=== PATIENT | male | born 1970 | race Caucasian/White ===

== ENCOUNTER 2018-02-09 23:09 | Emergency (ER) | payer OTHER ==
[2018-02-09] MEDS ORDERED: IPRATROPIUM BROM 0.5MG/2.5ML ONE (23:43)
[2018-02-09] MEDS ORDERED: METHYLPREDNISOLONE 125 MG INJ ONE (23:43)
[2018-02-09] MEDS ORDERED: LEVALBUTEROL 1.25 MG/3 ML NEB ONE (23:43)
[2018-02-09 23:56] LABS: Protime INR 0.92
[2018-02-10 00:03] LABS: Absolute Lymphocytes (CBC) 3.3 K/uL (0.7-4.9); Absolute Monocytes 0.7 K/uL (0.1-1.3); Absolute Neutrophil 4.1 K/uL (1.8-8.0); Hematocrit 43.2 % (39.6-49.0); Lymphocytes % 39.6 % (15.3-44.8); MCH 34.5 pg (27.0-35.0); MCV 96.7 fL (80-100); MPV 6.7 fL (7.6-11.3); Monocytes % 9.1 % (3.3-12.3); RBC Red Blood Cell Count 4.47 M/uL (4.33-5.43)
[2018-02-10 00:05] LABS: Bicarbonate 25 mEq/L (21-31); Glucose Level 113 mg/dL (65-120); Lipase 134 U/L (22-51); Potassium 3.3 mEq/L (3.6-5.0); Sodium Level 132 mEq/L (135-145)
[2018-02-10 00:12] LABS: ALT/SGPT 37 IU/L (10-60); AST/SGOT 43 IU/L (10-42); Albumin 5.1 g/dL (3.2-5.5); Alkaline Phosphatase 105 IU/L (42-121); BUN Blood Urea Nitrogen 5 mg/dL (6-20); Bilirubin Direct 0.1 mg/dL (0-0.2); Bilirubin Total 0.9 mg/dL (0.3-1.2); Protein, Total 8.6 g/dL (6.0-8.3)
[2018-02-10 01:11] LABS: Urine Blood TRACE (NEG); Urine Glucose NEGATIVE (NEG); Urine Protein TRACE (NEG); Urine Specific Gravity <1.005 (1.005-1.030); Urine pH 6.5 (5.0-7.0)
--- NOTE | 2018-02-10 01:34 | EDPHYS ---
Physician Documentation [facility] Name: Randy Briones Age: 47 yrs Sex: Male : 1970 Arrival Date: 02/09/2018 Time: 23:11 Bed 4 Private MD: ED Physician Dheeraj Thibodeaux HPI: 02/09 23:26 This 47 yrs old Male presents to ER via EMS with complaints of Respiratory rn Distress. 23:26 The patient has shortness of breath at rest. Onset: The symptoms/episode began/occurred rn today. Duration: The symptoms are intermittent. Associated signs and symptoms: Pertinent positives: non-productive cough, Pertinent negatives: fever, hemoptysis, loss of consciousness. Severity of symptoms: At their worst the symptoms were moderate in the emergency department the symptoms have improved. The patient has experienced similar episodes in the past. Reports intermittent episodes of sob, began today, has happened multiple times in past, no fever, no hemoptysis, reports is HIV + and has been having unprotected sex, has not been tested in 6 years, has not told us this in past. . Historical: - Allergies: 23:29 Lisinopril; fc - Home Meds: 23:29 Triamterene-Hydrochlorothiazid Oral once daily [Active]; albuterol sulfate 2.5 mg /3 mL fc (0.083 %) Inhl nebu 3 mL 3 times per day [Active]; Spiriva with HandiHaler inhalation [Active]; Advair Diskus 250-50 mcg/dose Inhl dsdv 1 puff 2 times per day [Active]; gabapentin 100 mg Oral cap 3 caps 3 times per day [Active]; montelukast 10 mg Oral tab 1 tab once daily [Active]; Nexium 40 mg Oral cpDR 1 cap 2 times per day [Active]; Norvasc 10 mg Oral tab once daily [Active]; - PMHx: 23:29 COPD; Hypertension; fc - PSHx: 23:29 finger surg; fc - Immunization history:: Last tetanus immunization: unknown. - Social history:: Smoking status: Patient uses tobacco products, smokes two packs cigarettes per day. Patient uses alcohol, 1 case a day. - Family history:: not pertinent. - Hospitalizations: : No recent hospitalization is reported. ROS: 23:26 Constitutional: Negative for fever, chills, and weight loss, Eyes: Negative for injury, rn pain, redness, and discharge, Neck: Negative for injury, pain, and swelling, Cardiovascular: Negative for chest pain, palpitations, and edema, Respiratory: + sob and cough, no hemoptysis Abdomen/GI: Negative for abdominal pain, nausea, vomiting, diarrhea, and constipation, MS/Extremity: Negative for injury and deformity, Skin: Negative for injury, rash, and discoloration, Neuro: Negative for headache, weakness, numbness, tingling, and seizure. Exam: 23:26 Constitutional: This is a well developed, well nourished patient who is awake, alert, rn and in no acute distress. Head/Face: Normocephalic, atraumatic. Eyes: Pupils equal round and reactive to light, extra-ocular motions intact. Lids and lashes normal. Conjunctiva and sclera are non-icteric and not injected. Cornea within normal limits. Periorbital areas with no swelling, redness, or edema. Neck: Trachea midline, no thyromegaly or masses palpated, and no cervical lymphadenopathy. Supple, full range of motion without nuchal rigidity, or vertebral point tenderness. No Meningismus. Cardiovascular: Regular rate and rhythm with a normal S1 and S2. No gallops, murmurs, or rubs. Normal PMI, no JVD. No pulse deficits. Respiratory: Mild tachypnea, decreased bilateral breath sounds, no wheezing, no retractions Abdomen/GI: Soft, non-tender, with normal bowel sounds. No distension or tympany. No guarding or rebound. No evidence of tenderness throughout. MS/ Extremity: Pulses equal, no cyanosis. Neurovascular intact. Full, normal range of motion. Equal circumference. Neuro: Awake and alert, GCS 15, oriented to person, place, time, and situation. Cranial nerves II-XII grossly intact. Motor strength 5/5 in all extremities. Sensory grossly intact. Cerebellar exam normal. Vital Signs: 23:10 BP 151 / 100; Pulse 109; Resp 24; Temp 97.7(O); Pulse Ox 99% on R/A; Weight 79.38 kg fc (R); Height 5 ft. 4 in. (162.56 cm) (R); Pain 0/10; 04/04 00:18 BP 107 / 90; Pulse 98; Resp 18; Pulse Ox 98% on R/A; aa1 01:23 BP 117 / 71; Pulse 93; Resp 20; Pulse Ox 98% on R/A; Pain 0/10; aa1 01:46 BP 132 / 97; Pulse 64; Resp 18 S; Temp 98(O); Pulse Ox 95% on R/A; bb 02/09 23:10 Body Mass Index 30.04 (79.38 kg, 162.56 cm) fc MDM: 02/09 23:14 Patient medically screened. pm1 02/10 01:31 Differential diagnosis: pneumonia, Pneumothorax pulmonary edema, pancreatitis. Data rn reviewed: vital signs, nurses notes, lab test result(s), EKG, radiologic studies, plain films, and as a result, I will discharge patient. Counseling: I had a detailed discussion with the patient and/or guardian regarding: the historical points, exam findings, and any diagnostic results supporting the discharge/admit diagnosis, lab results, radiology results, the need for outpatient follow up, to return to the emergency department if symptoms worsen or persist or if there are any questions or concerns that arise at home. Response to treatment: the patient's symptoms have resolved after treatment, the patient's condition has returned to base line, the patient is now symptom free, patient is well hydrated. and as a result, I will discharge patient. Special discussion: I discussed with the patient/guardian in detail that at this point there is no indication for admission to the hospital. It is understood, however, that if the symptoms persist or worsen the patient needs to return immediately for re-evaluation. Based on the history and exam findings, there is no indication for further emergent testing or inpatient evaluation. I discussed with the patient/guardian the need to see the supervisor paint roller covers for further evaluation of the symptoms. ED course: Pt sleeping, no further breathing episodes, mild pancreatitis on labs, patient has not had abd or chest pain entire time, offered observation, patient states feels fine, wants to go home, strongly urged to wean off ETOH as likely root of most of his problems, return precautions given and understood. . 01:34 ED course: no change in LFTs compared to previous. . rn 02/09 23:16 Order name: BMP rn 02/09 23:16 Order name: BNP; Complete Time: rn 02/09 23:16 Order name: CBC with Diff; Complete Time: rn 02/09 23:16 Order name: Hepatic Function; Complete Time: 01:08 rn 02/09 23:16 Order name: Lipase; Complete Time: 01:08 rn 02/09 23:16 Order name: XRAY CXR (1 view) rn 02/09 23:16 Order name: PT-INR; Complete Time: 00:06 rn 02/09 23:16 Order name: Ptt, Activated; Complete Time: 00:06 rn 02/09 23:16 Order name: Troponin (emerg Dept Use Only); Complete Time: 01:08 rn 02/09 23:16 Order name: Basic Metabolic Panel; Complete Time: 01:08 EDMS 02/10 00:13 Order name: HIV AG/AB SCREEN EDMS 02/10 00:58 Order name: Urine Dipstick--Ancillary (enter results); Complete Time: 01:18 em1 02/09 23:16 Order name: EKG; Complete Time: 23:16 rn 02/09 23:16 Order name: Cardiac monitoring; Complete Time: 23:21 rn 02/09 23:16 Order name: EKG - Nurse/Tech; Complete Time: 23:44 rn 02/09 23:16 Order name: IV Saline Lock; Complete Time: 23:20 rn 02/09 23:16 Order name: Labs collected and sent; Complete Time: 23:45 rn 02/09 23:16 Order name: O2 Per Protocol; Complete Time: 23:20 rn 02/09 23:16 Order name: O2 Sat Monitoring; Complete Time: 23:20 rn Administered Medications: 02/09 23:30 Drug: Xopenex (3) 1.25 mg Route: Inhalation; aa1 23:30 Drug: AtroVENT Aerosol 0.5 mg Route: Inhalation; aa1 23:32 Drug: SOLU-Medrol 125 mg Route: IVP; Site: left antecubital; aa1 02/10 01:47 Follow up: Response: No adverse reaction bb Disposition: 02/10/18 01:33 Discharged to Home. Impression: Acute pancreatitis. - Condition is Stable. - Discharge Instructions: Acute Pancreatitis. - Medication Reconciliation Form, Thank You Letter, Antibiotic Education, Prescription Opioid Use form. - Follow up: Private Physician; When: As needed; Reason: Recheck today's complaints, Re-evaluation by your physician. - Problem is new. - Symptoms have improved. Signatures: Dispatcher [employer] EDShu Yusuf RN RN aa1 Thu Geiger RN RN Seda Cook RN RN Dheeraj Bland MD MD rn Marinas, Patrick, MARITZA CALL OR CONTACT CENTRE OPERATOR pm1 Corrections: (The following items were deleted from the chart) 00:13 02/09 23:53 HIV (1 ordered. EDMS EDMS
--- NOTE | 2018-02-10 01:34 | ER ---
Nurse's Notes [facility] Name: Randy Briones Age: 47 yrs Sex: Male : 1970 Arrival Date: 02/09/2018 Time: 23:11 Bed 4 Private MD: Diagnosis: Acute pancreatitis Presentation: 02/09 23:10 Presenting complaint: EMS states: that they were toned for anxiety attack. Upon their fc arrival pt was short of breath. Has been having "breathing attacks" x 3 months. When he has the attacks he also has right upper abd pain. bp 160/109, sats 97% on 3L. Had Atrovent and Albuterol neb just prior to their arrival. Pt also wants HIV test due to his having HIV and them not finding anything wrong with him even though he has been sick for some time. Transition of care: patient was not received from another setting of care. Onset of symptoms was February 09, 2018. Care prior to arrival: IV initiated. 18 GA, in the left antecubital area. 23:20 Method Of Arrival: EMS: [facility] 23:20 Acuity: CANDACE 2 Historical: - Allergies: 23:29 Lisinopril; fc - Home Meds: 23:29 Triamterene-Hydrochlorothiazid Oral once daily [Active]; albuterol sulfate 2.5 mg /3 mL fc (0.083 %) Inhl nebu 3 mL 3 times per day [Active]; Spiriva with HandiHaler inhalation [Active]; Advair Diskus 250-50 mcg/dose Inhl dsdv 1 puff 2 times per day [Active]; gabapentin 100 mg Oral cap 3 caps 3 times per day [Active]; montelukast 10 mg Oral tab 1 tab once daily [Active]; Nexium 40 mg Oral cpDR 1 cap 2 times per day [Active]; Norvasc 10 mg Oral tab once daily [Active]; - PMHx: 23:29 COPD; Hypertension; fc - PSHx: 23:29 finger surg; fc - Immunization history:: Last tetanus immunization: unknown. - Social history:: Smoking status: Patient uses tobacco products, smokes two packs cigarettes per day. Patient uses alcohol, 1 case a day. - Family history:: not pertinent. - Hospitalizations: : No recent hospitalization is reported. Screenin:10 Abuse screen: Denies threats or abuse. Nutritional screening: No deficits noted. fc Tuberculosis screening: No symptoms or risk factors identified. Fall Risk None identified. Assessment: 23:20 General: Appears in no apparent distress. comfortable, Behavior is calm, cooperative, aa1 appropriate for age, Smells of alcohol. Pain: Denies pain. Neuro: Level of Consciousness is awake, alert, obeys commands, Oriented to person, place, time, situation, Moves all extremities. Full function Speech is normal. Cardiovascular: Denies chest pain, diaphoresis, palpitations, Heart tones S1 S2 present Capillary refill < 3 seconds Clubbing of nail beds is absent Patient's skin is warm and dry. Rhythm is regular. Respiratory: Reports shortness of breath at rest Airway is patent Respiratory effort is even, unlabored, Respiratory pattern is regular, symmetrical, Breath sounds with wheezes bilaterally. GI: No signs and/or symptoms were reported involving the gastrointestinal system. Abdomen is round. : No signs and/or symptoms were reported regarding the genitourinary system. EENT: No signs and/or symptoms were reported regarding the EENT system. Derm: Skin is intact, is healthy with good turgor, Skin is pink, warm \\T\\ dry. Musculoskeletal: Circulation, motion, and sensation intact. Capillary refill < 3 seconds. 02/10 00:18 Reassessment: Patient appears in no apparent distress at this time. Patient and/or aa1 family updated on plan of care and expected duration. Pain level reassessed. Patient is alert, oriented x 3, equal unlabored respirations, skin warm/dry/pink. Awaiting lab results Patient states feeling better. 01:23 Reassessment: Patient appears in no apparent distress at this time. Patient and/or aa1 family updated on plan of care and expected duration. Pain level reassessed. Patient is alert, oriented x 3, equal unlabored respirations, skin warm/dry/pink. MD at bedside discussing results with pt \\T\\ spouse. 01:45 Reassessment: Patient is alert, oriented x 3, equal unlabored respirations, skin bb warm/dry/pink. pt verbalized understanding of and agrees to plan of care discharge instructions given pt ambulated with steady gait to exit. Vital Signs: 02/09 23:10 BP 151 / 100; Pulse 109; Resp 24; Temp 97.7(O); Pulse Ox 99% on R/A; Weight 79.38 kg fc (R); Height 5 ft. 4 in. (162.56 cm) (R); Pain 0/10; 02/10 00:18 BP 107 / 90; Pulse 98; Resp 18; Pulse Ox 98% on R/A; aa1 01:23 BP 117 / 71; Pulse 93; Resp 20; Pulse Ox 98% on R/A; Pain 0/10; aa1 01:46 BP 132 / 97; Pulse 64; Resp 18 S; Temp 98(O); Pulse Ox 95% on R/A; bb 02/09 23:10 Body Mass Index 30.04 (79.38 kg, 162.56 cm) ED Course: 02/09 23:10 Arm band placed on Patient placed in an exam room, on a stretcher. fc 23:10 Patient has correct armband on for positive identification. Bed in low position. Call fc light in reach. Side rails up X2. site monitor on. Pulse ox on. NIBP on. 23:10 No provider procedures requiring assistance completed. Maintain EMS IV. Dressing fc intact. Good blood return noted. Site clean \\T\\ dry. Gauge \\T\\ site: 18 gauge to left a/c. 23:10 Oxygen administration via nasal cannula \\T\\ 2L/min. aa1 23:11 Patient arrived in ED. em1 23:14 Issa Mayberry, CLEARING DISTRIBUTION CLERK is PHCP. pm1 23:14 Dheeraj Thibodeaux MD is Attending Physician. pm1 23:20 Shu Mendoza, BRIGETTE is Primary Nurse. aa1 23:24 Triage completed. 23:30 Initial lab(s) drawn, by ct, sent to lab. EKG done, by ED staff, reviewed by Dheeraj Thibodeaux MD. 23:46 X-ray completed. Portable x-ray completed in exam room. Patient tolerated procedure kw well. 23:47 XRAY CXR (1 view) In Process Unspecified. EDMS 02/10 01:47 IV discontinued, intact, bleeding controlled, No redness/swelling at site. Pressure bb dressing applied. Administered Medications: 02/09 23:30 Drug: Xopenex (3) 1.25 mg Route: Inhalation; aa1 23:30 Drug: AtroVENT Aerosol 0.5 mg Route: Inhalation; aa1 23:32 Drug: SOLU-Medrol 125 mg Route: IVP; Site: left antecubital; aa1 02/10 01:47 Follow up: Response: No adverse reaction bb Outcome: 01:33 Discharge ordered by . rn 01:46 Discharged to home ambulatory. bb 01:46 Condition: stable 01:46 Discharge instructions given to patient, Instructed on discharge instructions, follow up and referral plans. Demonstrated understanding of instructions, follow-up care. 01:47 Patient left the ED. bb Signatures: Dispatcher [employer] EDMS Shu Mendoza RN RN aa1 Thu Geiger RN RN fc Seda Street RN RN bb Dheeraj Thibodeaux MD MD rn Martinez, Eric em1 Whitley, Kimberlee kw Marinas, Patrick, MARITZA CLEARING DISTRIBUTION CLERK pm1
[2018-02-10 01:56] VITALS: BP 132/97; TEMP 98; O2SAT 95
--- NOTE | 2018-02-10 07:35 | EKG ---
Test Date: 2018-02-09 Test Time: 23:31:14 Hole Digger Operator: FABIANO MEASUREMENT RESULTS: Intervals: Rate: 96 UT: 134 QRSD: 102 QT: 376 QTc: 475 Rives: P: 73 UT: 134 QRS: 86 T: 71 INTERPRETIVE STATEMENTS: Normal sinus rhythm Normal ECG Compared to ECG 01/07/2018 13:06:49 No significant changes Electronically Signed On 02-10-18 07:34:46 CDT by Clovis Barrios
--- NOTE | 2018-02-10 08:20 | RAD REPORT ---
EXAM DESCRIPTION: RAD - Chest Single View - 02/09/2018 11:47 pm CLINICAL HISTORY: Shortness of breath, dyspnea. COMPARISON: 01/07/2018 FINDINGS: Portable technique limits examination quality. The lungs are grossly clear. The heart is normal in size. No displaced fractures. IMPRESSION: No acute intrathoracic process suspected.
[2018-02-11 21:31] LABS: HIV 1/2 Antibody Diff Not indicated.; HIV AG/AB 4TH GEN Non-reactive (Non-reactive)
== END 2018-02-10 01:47 | disposition home or self-care (01) ==
LOC: ER 23:09
DX: K85.90 Acute pancreatitis without necrosis or infection, unspecified (principal); I10 Essential (primary) hypertension; J44.9 Chronic obstructive pulmonary disease, unspecified; F17.210 Nicotine dependence, cigarettes, uncomplicated; Z88.8 Allergy status to other drugs, medicaments and biological substances
CPT/HCPCS: 36415; 71045; 80048; 80076; 81003; 83690; 83880; 84484; 85025; 85610; 85730; 87389; 93005; 96374; 99285; J2930

== ENCOUNTER 2018-02-10 15:01 | Inpatient (IN) | payer OTHER ==
[2018-02-10] MEDS ORDERED: METHYLPREDNISOLONE 125 MG INJ ONE (15:40)
[2018-02-10] MEDS ORDERED: MAGNESIUM SULFATE 1 gm IVPB 1 GM/100 ML BAG IV ONE ×2 (15:41→15:56)
[2018-02-10] MEDS ORDERED: LEVALBUTEROL 1.25 MG/3 ML NEB ONE (15:41)
--- NOTE | 2018-02-10 15:48 | EKG ---
Test Date: 2018-02-10 Test Time: 15:43:47 Features Reporter: CLEMENTINE MEASUREMENT RESULTS: Intervals: Rate: 137 CO: 126 QRSD: 86 QT: 296 QTc: 446 [place]: P: 70 CO: 126 QRS: 81 T: 71 INTERPRETIVE STATEMENTS: Sinus tachycardia Nonspecific ST abnormality Abnormal ECG Compared to ECG 02/09/2018 23:31:14 ST (T wave) deviation now present Sinus rhythm no longer present Electronically Signed On 02-10-18 15:48:35 CDT by Wilber Ray
[2018-02-10 15:51] LABS: Absolute Monocytes 0.4 K/uL (0.1-1.3); Absolute Neutrophil 6.1 K/uL (1.8-8.0); Basophils % 0.7 % (0-1.3); Lymphocytes % 13.3 % (15.3-44.8); MCH 33.7 pg (27.0-35.0); MCV 97.5 fL (80-100); MPV 7.3 fL (7.6-11.3); Monocytes % 5.1 % (3.3-12.3); RBC Red Blood Cell Count 4.52 M/uL (4.33-5.43)
[2018-02-10 15:55] LABS: Bicarbonate 23 mEq/L (21-31); Glucose Level 138 mg/dL (65-120); Sodium Level 132 mEq/L (135-145)
[2018-02-10] MEDS ORDERED: NA CHLORIDE 0.9% 1,000 ML ONE ×2 (15:55→17:47)
[2018-02-10 15:56] LABS: Protime INR 0.95
[2018-02-10 16:01] LABS: ALT/SGPT 40 IU/L (10-60); AST/SGOT 43 IU/L (10-42); Albumin 5.3 g/dL (3.2-5.5); Alkaline Phosphatase 99 IU/L (42-121); BUN Blood Urea Nitrogen 11 mg/dL (6-20); Bilirubin Direct 0.2 mg/dL (0-0.2); Creatine Phosphokinase 87 IU/L (22-269); Glomerular Filtration Rate > 90 mL/min (=/>90); Magnesium 1.8 mg/dL (1.8-2.5); Protein, Total 8.9 g/dL (6.0-8.3)
[2018-02-10 16:04] LABS: CKMB Creatine Kinase MB 2.7 ng/ml (0.3-4.0)
[2018-02-10] MEDS ORDERED: IPRATROPIUM BROM 0.5MG/2.5ML ONE (16:27)
[2018-02-10 17:18] LABS: Arterial Blood Carboxyhemoglob 3.3 % (0-1.5); Blood Gas Oxyhemoglobin 94.9 % (94-97)
[2018-02-10] MEDS ORDERED: LORazepam 2 MG/ML VIAL ONE ×2 (17:28→19:14)
--- NOTE | 2018-02-10 17:29 | RAD REPORT ---
EXAM DESCRIPTION: RAD - Chest Single View - 02/10/2018 5:23 pm CLINICAL HISTORY: Chest pain. COMPARISON: 02/09/2018 FINDINGS: Portable technique limits examination quality. The lungs are grossly clear. The heart is normal in size. No displaced fractures. IMPRESSION: No acute intrathoracic process suspected.
[2018-02-10 17:43] LABS: Urine Blood TRACE (NEG); Urine Glucose NEGATIVE (NEG); Urine Protein 2+ (NEG); Urine pH 5.5 (5.0-7.0)
[2018-02-10 17:44] LABS: Barbiturates NEGATIVE; Benzodiazepines NEGATIVE; Cocaine NEGATIVE; METHAMPHETAM NEGATIVE; Opiates NEGATIVE; Phencyclidine NEGATIVE; THC Cannibis NEGATIVE
[2018-02-10] MEDS ORDERED: THIAMINE 200 MG/2 ML INJ ONE (17:45)
[2018-02-10] MEDS ORDERED: MULTIVITAMINS 10 ML VIAL (INJ) IV ONE (17:46)
[2018-02-10] MEDS ORDERED: FOLIC ACID 5 MG/ML VIAL ONE (17:47)
[2018-02-10] MEDS ORDERED: DIAZEPAM 10 MG/2 ML INJ SYRINGE ONE (18:32)
--- NOTE | 2018-02-10 19:56 | ER ---
Nurse's Notes [facility] Name: Randy Briones Age: 47 yrs Sex: Male : 1970 Arrival Date: 02/10/2018 Time: 15:03 Bed 27 Private MD: Diagnosis: Alcohol dependence with withdrawal, unspecified;Chronic obstructive pulmonary disease with (acute) exacerbation Presentation: 02/10 15:17 Presenting complaint: Patient states: "I was here last night for my COPD and I can't lk1 get any better.". Transition of care: patient was not received from another setting of care. Onset of symptoms was February 09, 2018. Care prior to arrival: None. 15:17 Method Of Arrival: Ambulatory lk1 15:17 Acuity: CANDACE 2 lk1 Triage Assessment: 15:19 General: Appears distressed, Behavior is appropriate for age, anxious. Pain: Complains lk1 of pain in chest and right upper quadrant Pain currently is 6 out of 10 on a pain scale. Respiratory: Reports shortness of breath air hunger labored breathing Airway is patent Respiratory effort is labored, gasping, with nasal flaring, pursed lip, with retractions, using tripod position, Respiratory pattern is symmetrical, tachypnea Onset: The symptoms/episode began/occurred today, the patient has severe shortness of breath. Historical: - Allergies: 15:19 Lisinopril; lk1 - PMHx: 15:19 COPD; Hypertension; lk1 - PSHx: 15:19 finger amputation; lk1 - Immunization history:: Adult Immunizations up to date. - Social history:: Smoking status: unknown. Screenin:46 Abuse screen: Denies threats or abuse. Nutritional screening: No deficits noted. kb1 Tuberculosis screening: No symptoms or risk factors identified. Fall Risk Secondary diagnosis (15 points). Assessment: 15:21 General: Appears distressed, uncomfortable, Behavior is restless. Neuro: Level of kb1 Consciousness is awake, alert, obeys commands, Oriented to person, place, time, situation. Cardiovascular: Rhythm is sinus tachycardia. Respiratory: Reports shortness of breath cough that is productive, labored breathing states that he has been having "coughing then trouble breathing" all day. Was seen in this ER last night for same symptoms. Reports that today he has been having these "attacks" but this was the worse. Airway is patent Respiratory effort is Respiratory pattern is Breath sounds are diminished bilaterally. Breath sounds with wheezes bilaterally. Onset: The symptoms/episode began/occurred gradually. GI: No signs and/or symptoms were reported involving the gastrointestinal system. : No signs and/or symptoms were reported regarding the genitourinary system. Derm: Skin is diaphoretic, Skin is red. 15:50 Reassessment: Patient states symptoms have improved. Respiratory: Airway is patent kb1 Respiratory effort is labored, Respiratory pattern is hyperventilation. 16:40 Respiratory: Reports states "I keep having these attacks, I thought they would be done kb1 by now." Bg BARRERA at bedside. 16:44 Reassessment: Respiratory at bedside to place Pt on bipap. kb1 17:15 Reassessment: Unable to tolerate bipap at this time. Ativan ordered and administered. kb1 Notified urine sample needed, urinal at bedside. . 17:51 Reassessment: Patient and/or family updated on plan of care and expected duration. Pain kb1 level reassessed. Patient is alert, oriented x 3, equal unlabored respirations, skin warm/dry/pink. Resting comfortably in bed at this time. . 19:28 Reassessment: Patient and/or family updated on plan of care and expected duration. Pain kb1 level reassessed. Patient is alert, oriented x 3, equal unlabored respirations, skin warm/dry/pink. Patient states symptoms have improved. 20:25 Reassessment: Patient and/or family updated on plan of care and expected duration. Pain kb1 level reassessed. Patient is alert, oriented x 3, equal unlabored respirations, skin warm/dry/pink. Sitting on edge of bed reading paper and eating. NAD, hands shaking. 21:29 Reassessment: Patient and/or family updated on plan of care and expected duration. Pain kb1 level reassessed. Patient is alert, oriented x 3, equal unlabored respirations, skin warm/dry/pink. Resting comfortably. Vital Signs: 15:19 BP 175 / 104; Pulse 148; Resp 36; Temp 98.9(O); Pulse Ox 95% on R/A; Weight 79.38 kg lk1 (R); Height 5 ft. 4 in. (162.56 cm) (R); Pain 6/10; 15:54 BP 149 / 96; Pulse 139; Resp 32; Pulse Ox 98% 2 lpm ; kb1 16:44 BP 176 / 101; Pulse 131; Resp 30; Pulse Ox 98% ; kb1 17:16 BP 124 / 105; Pulse 145; Resp 26; Pulse Ox 98% 2 lpm ; kb1 17:54 BP 190 / 109; Pulse 133; Resp 28; Pulse Ox 97% 2 lpm ; kb1 19:30 BP 155 / 118; Pulse 115; Resp 28; Pulse Ox 98% ; kb1 20:28 BP 174 / 131; Pulse 127; Resp 26; Pulse Ox 98% 2 lpm ; kb1 21:30 BP 166 / 94; Pulse 118; Resp 24; Pulse Ox 98% 2 lpm ; kb1 15:19 Body Mass Index 30.04 (79.38 kg, 162.56 cm) lk1 ED Course: 15:03 Patient arrived in ED. rg4 15:18 Triage completed. lk1 15:20 Bg Pro PA is PHCP. cp 15:20 Bg Briones MD is Attending Physician. cp 15:20 Arm band placed on right wrist. lk1 15:20 personnel monitor on. Pulse ox on. NIBP on. kb1 15:20 No provider procedures requiring assistance completed. Inserted saline lock: 18 gauge kb1 in right antecubital area, using aseptic technique. Blood collected. 15:34 Vanessa Petersen, RN is Primary Nurse. kb1 15:46 Patient has correct armband on for positive identification. Bed in low position. Call kb1 light in reach. Sitting on side of bed for comfort. 17:20 X-ray completed. Portable x-ray completed in exam room. Patient tolerated procedure kc2 well. 17:23 XRAY Chest (1 view) In Process Unspecified. EDMS 17:27 Urine collected: urinal, kylee. dh3 19:49 US Abdomen Limited In Process Unspecified. EDMS 19:54 Walt Beyer MD is Hospitalizing Provider. cp 21:30 Patient admitted, IV remains in place. kb1 Administered Medications: 15:25 Drug: Xopenex (3) 1.25 mg Route: Inhalation; kb1 15:25 Drug: NS 0.9% 1000 ml Route: IV; Rate: 1 bolus; Site: right antecubital; kb1 16:43 Follow up: IV Status: Completed infusion kb1 15:25 Drug: Magnesium Sulfate 2 grams Route: IVPB; Infused Over: 2 hrs; Site: right kb1 antecubital; 15:25 Drug: SOLU-Medrol 125 mg Route: IVP; Site: right antecubital; kb1 15:54 Follow up: Response: No adverse reaction; No change in condition kb1 16:39 Drug: AtroVENT Aerosol 0.5 mg Route: Inhalation; kb1 16:43 Follow up: Response: No adverse reaction kb1 17:15 Drug: Ativan 0.5 mg Route: IVP; Site: right antecubital; kb1 18:19 Follow up: Response: Marked relief of symptoms kb1 17:26 Drug: Banana Bag - (NS 0.9% 1000 ml, foLIC Acid 1 mg, Thiamine 100 mg, Multivitamin 1 kb1 amp) Route: IV; Rate: 200 ml/hr; Site: right antecubital; 21:32 Follow up: IV Status: Infusion continued upon admission kb1 18:18 Drug: Diazepam 2 mg Route: IVP; Site: right antecubital; kb1 18:30 Follow up: Response: No adverse reaction kb1 19:00 Drug: Ativan 1 mg Route: IVP; Site: right antecubital; kb1 19:10 Follow up: Response: No adverse reaction kb1 20:00 Drug: Ativan 1 mg Route: IVP; Site: right antecubital; kb1 21:32 Follow up: Response: Marked relief of symptoms kb1 Outcome: 19:56 Decision to Hospitalize by Provider. cp 21:30 Admitted to ICU accompanied by nurse, accompanied by tech, via stretcher, room ICU-1, [facility] with oxygen, Report called to Cy MACHUCA 21:30 Condition: improved 21:30 Instructed on the need for admit. 21:37 Patient left the ED. kb1 Signatures: Dispatcher [employer] EDMS Bg Pro PA PA cp Kluge, Leah RN RN lk1 Alie Daniels2 Fiona Gomez rg4 Gayle Hernández 3 Vanessa Petersen RN RN kb1 Corrections: (The following items were deleted from the chart) 15:21 15:19 Pain: Denies pain. lk1 lk1 15:54 15:21 Respiratory: Reports shortness of breath cough that is productive, labored kb1 breathing states that he has been having "coughing then trouble breathing" all day. Was seen in this ER last night for same symptoms. Reports that today he has been having these "attacks" but this was the worse. Airway is patent Breath sounds are diminished bilaterally. Breath sounds with wheezes bilaterally. Onset: The symptoms/episode began/occurred gradually, kb1
--- NOTE | 2018-02-10 19:57 | EDPHYS ---
Physician Documentation [facility] Name: Randy Briones Age: 47 yrs Sex: Male : 1970 Arrival Date: 02/10/2018 Time: 15:03 Bed 27 Private MD: ED Physician Bg Briones HPI: 02/10 15:25 This 47 yrs old Male presents to ER via Ambulatory with complaints of cp Breathing Difficulty. 15:25 The patient has shortness of breath at rest. cp 15:25 Onset: The symptoms/episode began/occurred yesterday, and became worse today. Duration: cp The symptoms are continuous, and are steadily getting worse. Associated signs and symptoms: Pertinent positives: tremor, Pertinent negatives: chest pain, fever, vomiting. 15:25 Severity of symptoms: in the emergency department the symptoms are unchanged. The cp patient has been recently seen at the [facility] Emergency Department, yesterday, for similar complaints. Historical: - Allergies: 15:19 Lisinopril; lk1 - PMHx: 15:19 COPD; Hypertension; lk1 - PSHx: 15:19 finger amputation; lk1 - Immunization history:: Adult Immunizations up to date. - Social history:: Smoking status: unknown. ROS: 15:30 Constitutional: Negative for body aches, chills, fever, poor PO intake. cp 15:30 Eyes: Negative for injury, pain, redness, and discharge. cp 15:30 ENT: Negative for drainage from ear(s), ear pain, sore throat, difficulty swallowing, difficulty handling secretions. 15:30 Cardiovascular: Negative for chest pain, edema. 15:30 Respiratory: Positive for shortness of breath, at rest. wheezing, Negative for cough. 15:30 Abdomen/GI: Negative for abdominal pain, vomiting, diarrhea, constipation, black/tarry stool, rectal bleeding. 15:30 Back: Negative for pain at rest, pain with movement, radiated pain. 15:30 : Negative for urinary symptoms. 15:30 Skin: Negative for cellulitis, rash. 15:30 Neuro: Positive for tremor, Negative for altered mental status, headache, numbness, seizure activity, syncope, near syncope. 15:30 Psych: Positive for alcohol dependence, Negative for drug dependence, auditory hallucinations, visual hallucinations, homicidal ideation, suicide gesture, suicidal ideation. 15:30 All other systems are negative. Exam: 15:35 Head/Face: Normocephalic, atraumatic. Eyes: Pupils equal round and reactive to light, cp extra-ocular motions intact. Lids and lashes normal. Conjunctiva and sclera are non-icteric and not injected. Cornea within normal limits. Periorbital areas with no swelling, redness, or edema. ENT: Nares patent. No nasal discharge, no septal abnormalities noted. Tympanic membranes are normal and external auditory canals are clear. Oropharynx with no redness, swelling, or masses, exudates, or evidence of obstruction, uvula midline. Mucous membranes moist. Chest/axilla: Normal chest wall appearance and motion. Nontender with no deformity. No lesions are appreciated. 15:35 Constitutional: The patient appears alert, awake, non-toxic, well developed, well nourished, obese, in obvious distress, moderately distressed. 15:35 Cardiovascular: Rate: tachycardic, Rhythm: regular, Pulses: Pulses are 2+ in right radial artery and left radial artery. Edema: is not appreciated, JVD: is not appreciated. 15:35 Respiratory: moderate respiratory distress is noted, Respirations: labored breathing, that is moderate, shallow respirations, that is moderate, Breath sounds: decreased breath sounds, that are moderate, stridor, is not appreciated, wheezing: that is mild, is heard diffusely. 15:35 Abdomen/GI: Inspection: obese Bowel sounds: active, all quadrants, Palpation: abdomen is soft and non-tender, in all quadrants, rebound tenderness, is not appreciated, voluntary guarding, is not appreciated, involuntary guarding, is not appreciated. 15:35 Back: pain, is absent, ROM is normal. 15:35 Skin: cellulitis, is not appreciated, no rash present. cp 15:35 Neuro: Orientation: to person, place \T\ time. Mentation: lucid, able to follow commands, Cerebellar function: is grossly normal, Motor: moves all fours, strength is normal, Sensation: no obvious gross deficits, Abnormal movements: resting tremor, is located in the right hand and left hand. 15:50 ECG was reviewed by the Attending Physician. cp Vital Signs: 15:19 BP 175 / 104; Pulse 148; Resp 36; Temp 98.9(O); Pulse Ox 95% on R/A; Weight 79.38 kg lk1 (R); Height 5 ft. 4 in. (162.56 cm) (R); Pain 6/10; 15:54 BP 149 / 96; Pulse 139; Resp 32; Pulse Ox 98% 2 lpm ; kb1 16:44 BP 176 / 101; Pulse 131; Resp 30; Pulse Ox 98% ; kb1 17:16 BP 124 / 105; Pulse 145; Resp 26; Pulse Ox 98% 2 lpm ; kb1 17:54 BP 190 / 109; Pulse 133; Resp 28; Pulse Ox 97% 2 lpm ; kb1 19:30 BP 155 / 118; Pulse 115; Resp 28; Pulse Ox 98% ; kb1 20:28 BP 174 / 131; Pulse 127; Resp 26; Pulse Ox 98% 2 lpm ; kb1 21:30 BP 166 / 94; Pulse 118; Resp 24; Pulse Ox 98% 2 lpm ; kb1 15:19 Body Mass Index 30.04 (79.38 kg, 162.56 cm) lk1 MDM: 15:23 Patient medically screened. akash 16:00 Differential diagnosis: Bronchitis CHF exacerbation, Chronic Obstructive Pulmonary cp Disease Myocardial Infarction pneumonia, pulmonary edema, Pulmonary Embolism Sepsis Unstable Angina. 19:25 Physician consultation: Walt Beyer MD was called at 19:25, was contacted at 19:25, regarding admission, to the ICU, patient's condition, and will see patient in ED, shortly. 19:55 Data reviewed: vital signs, nurses notes, lab test result(s), EKG, radiologic studies, cp plain films, ultrasound. 19:55 Test interpretation: by ED physician or midlevel provider: ECG, plain radiologic cp studies. 02/10 15:21 Order name: Basic Metabolic Panel; Complete Time: 16:18 cp 02/10 16:18 Interpretation: Normal except: NA 132; CL 95; GLUC 138. cp 02/10 15:21 Order name: BNP; Complete Time: 16:18 cp 02/10 15:21 Order name: CBC with Diff; Complete Time: 16:18 cp 02/10 16:18 Interpretation: Normal except: PLT 278; MPV 7.3; ASHU% 80.9; LYM% 13.3. cp 02/10 15:21 Order name: Ckmb; Complete Time: 16:18 cp 02/10 15:21 Order name: CPK; Complete Time: 16:18 cp 02/10 15:21 Order name: LFT's; Complete Time: 16:18 cp 02/10 16:19 Interpretation: Normal except: SGOT 43; TP 8.9; GLOB 3.6. cp 04 15:21 Order name: Magnesium; Complete Time: 16:18 cp 02/10 15:21 Order name: PT-INR; Complete Time: 16:18 cp 02/10 15:21 Order name: Ptt, Activated; Complete Time: 16:18 cp 02/10 15:21 Order name: Troponin (emerg Dept Use Only); Complete Time: 16:18 cp 02/10 16:39 Order name: ABG; Complete Time: 17:21 cp 02/10 17:06 Order name: UDS cp 02/10 17:06 Order name: Urine Drug Screen; Complete Time: 18:33 EDMS 02/10 17:37 Order name: Urine Dipstick--Ancillary (enter results); Complete Time: 18:33 bd 02/10 15:21 Order name: XRAY Chest (1 view); Complete Time: 18:33 cp 02/10 15:21 Order name: EKG; Complete Time: 15:21 cp 02/10 16:39 Order name: BIPAP cp 02/10 19:19 Order name: US Abdomen Limited cp 02/10 19:19 Order name: Lipase cp 02/10 19:20 Order name: Lipase EDMS 02/10 15:21 Order name: Cardiac monitoring; Complete Time: 15:49 cp 02/10 15:21 Order name: EKG - Nurse/Tech; Complete Time: 15:49 cp 02/10 15:21 Order name: IV Saline Lock; Complete Time: 15:49 cp 02/10 15:21 Order name: Labs collected and sent; Complete Time: 15:49 cp 02/10 15:21 Order name: O2 Per Protocol; Complete Time: 15:50 cp 02/10 15:21 Order name: O2 Sat Monitoring; Complete Time: 15:50 cp 02/10 15:21 Order name: Urine Dipstick-Ancillary (obtain specimen); Complete Time: 17:28 cp EC:50 Rate is 137 beats/min. Rhythm is regular. MN interval is normal. QRS interval is cp normal. QT interval is normal. Interpreted by me. Reviewed by me. Administered Medications: 15:25 Drug: Xopenex (3) 1.25 mg Route: Inhalation; kb1 15:25 Drug: NS 0.9% 1000 ml Route: IV; Rate: 1 bolus; Site: right antecubital; kb1 16:43 Follow up: IV Status: Completed infusion kb1 15:25 Drug: Magnesium Sulfate 2 grams Route: IVPB; Infused Over: 2 hrs; Site: right kb1 antecubital; 15:25 Drug: SOLU-Medrol 125 mg Route: IVP; Site: right antecubital; kb1 15:54 Follow up: Response: No adverse reaction; No change in condition kb1 16:39 Drug: AtroVENT Aerosol 0.5 mg Route: Inhalation; kb1 16:43 Follow up: Response: No adverse reaction kb1 17:15 Drug: Ativan 0.5 mg Route: IVP; Site: right antecubital; kb1 18:19 Follow up: Response: Marked relief of symptoms kb1 17:26 Drug: Banana Bag - (NS 0.9% 1000 ml, foLIC Acid 1 mg, Thiamine 100 mg, Multivitamin 1 kb1 amp) Route: IV; Rate: 200 ml/hr; Site: right antecubital; 21:32 Follow up: IV Status: Infusion continued upon admission kb1 18:18 Drug: Diazepam 2 mg Route: IVP; Site: right antecubital; kb1 18:30 Follow up: Response: No adverse reaction kb1 19:00 Drug: Ativan 1 mg Route: IVP; Site: right antecubital; kb1 19:10 Follow up: Response: No adverse reaction kb1 20:00 Drug: Ativan 1 mg Route: IVP; Site: right antecubital; kb1 21:32 Follow up: Response: Marked relief of symptoms kb1 Disposition: 02/11 07:40 Co-signature as Attending Physician, Bg Briones MD. [facility] 07:40 Co-signature as Attending Physician, Bg Briones MD I agree with the assessment and [facility] plan of care. Disposition: 02/10/18 19:56 Hospitalization ordered by Walt Byeer for Inpatient Admission. Preliminary diagnosis are Alcohol dependence with withdrawal, unspecified, Chronic obstructive pulmonary disease with (acute) exacerbation. - Bed requested for Intensive Care Unit. - Status is Inpatient Admission. kb1 - Condition is Serious. - Problem is new. - Symptoms have improved. UTI on Admission? No Signatures: Dispatcher [employer] Mariely Cassidy, RN RN Bg Metcalf MD MD cha Page, Corey, PA PA cp Kluge, Leah RN RN lk1 Vanessa Petersen RN RN kb1
--- NOTE | 2018-02-10 20:09 | RAD REPORT ---
EXAM DESCRIPTION: US - Abdomen Exam Limited - 02/10/2018 7:52 pm CLINICAL HISTORY: Abdominal pain. COMPARISON: January 2018 FINDINGS: The gallbladder wall is not thickened. A gallstone is not seen. The biliary tree is normal caliber. IMPRESSION: Unremarkable gallbladder ultrasound.
--- NOTE | 2018-02-10 20:27 | P.HP ---
Certification for Inpatient Patient admitted to: Inpatient With expected LOS: >2 Midnights Practitioner: I am a practitioner with admitting privileges, knowledge of patient current condition, hospital course, and medical plan of care. Services: Services provided to patient in accordance with Admission requirements found in Title 42 Section 412.3 of the Code of Federal Regulations Patient History Date of Service: 02/10/18 Reason for admission: alcohol withdrawal History of Present Illness: Mr Briones is a 47 years old male with history of COPD, tobacco abuse 2ppd, alcohol abuse 12 beers daily, who came last night to ED complaining of SOB and abdominal pain. His work up was negative, and after improved his symptoms he was discharged home. Today, he came back to ED again complaining of SOB and anxiety. He also states that he would like to quit drinking alcohol and he is committed to do it. Last time he drinks was this morning 2 beers. In ED he was very anxious, with generalized tremors, O2 Sat on RA was 95%, CXR unremarkable, Lab work shows hyponatremia 132, and mild AST elevation 43. Abdominal US preliminary report is unremarkable. Allergies morphine Allergy (Verified 08/04/14 16:12) Itching/Hives/Rash levofloxacin [From Levaquin] Adverse Reaction (Verified 08/04/14 16:11) Itching Lisinopril Allergy (Uncoded 02/10/18 02:14) Unknown No Known Allergies Allergy (Uncoded 12/08/17 19:53) Unknown Home Medications: Fluticasone/Salmeterol [Advair 250/50 Diskus*] 1 puff IH BID 08/04/14 Albuterol Sulfate [Proventil Hfa] 6.7 gm IH Q6HR PRN #1 [email or web address] 08/06/14 Fluticasone/Salmeterol [Advair 250/50 Diskus*] 1 puff IH BID #1 disk 08/06/14 Lisinopril [Zestril] 40 mg PO DAILY #30 tablet 08/06/14 Prednisone [Deltasone*] 10 mg PO BID #35 tab 08/06/14 - Past Medical/Surgical History Diabetic: No -: htn, copd, colitis -: alcohol abuse -: tobacco abuse -: 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 moist/pink, EOMI, Sclerae nonicteric Neck: Supple, 2+ carotid pulse no bruit, No LAD, Without JVD or thyroid abnormality Respiratory: Diminished, Expiratory wheezes (scattered wheezing bilateral) Cardiovascular: Regular rate/rhythm, Normal S1 S2 Gastrointestinal: Normal bowel sounds, No tenderness Musculoskeletal: No tenderness Integumentary: No rashes Neurological: Normal speech, Normal strength at 5/5 x4 extr, Normal tone, Normal affect Lymphatics: No axilla or inguinal lymphadenopathy - Studies Laboratory Data (last 24 hrs) 02/10/18 19:34: Lipase 36 02/10/18 15:19: PT 11.2, INR 0.95, APTT 28.5 02/10/18 15:19: WBC 7.5, Hgb 15.2, Hct 44.0, Plt Count 278 D 02/10/18 15:19: B-Natriuretic Peptide 34 02/10/18 15:19: Sodium 132 L, Potassium 4.0, BUN 11, Creatinine 0.66, Glucose 138 H, Magnesium 1.8, Total Bilirubin 1.0, AST 43 H, ALT 40, Alkaline Phosphatase 99 Assessment and Plan - Problems (Diagnosis) (1) Alcohol abuse Current Visit: Yes Status: Acute (2) Alcohol dependence with withdrawal Current Visit: Yes Status: Acute Qualifiers: Complication of substance-induced condition: uncomplicated Qualified Code(s ): F10.230 - Alcohol dependence with withdrawal, uncomplicated (3) COPD (chronic obstructive pulmonary disease) Current Visit: Yes Status: Acute Qualifiers: COPD type: unspecified COPD Qualified Code(s): J44.9 - Chronic obstructive pulmonary disease, unspecified (4) Tobacco abuse Current Visit: Yes Status: Acute (5) HTN (hypertension) Current Visit: Yes Status: Acute Qualifiers: Hypertension type: essential hypertension Qualified Code(s): I10 - Essential (primary) hypertension (6) Hyponatremia Current Visit: Yes Status: Acute - Plan The patient will be admitted to ICU due to alcohol withdrawal. He is agree to stop drinking alcohol. Will activate CIWA protocol. Will order Librium PO and PRN IV lorazepam and Haldol. Continue banana bag. Will resume his home medication once verified and according his clinical status. Replace electrolytes by protocol. No signs of COPD exacerbation at this time. - Advance Directives Does patient have a Living Will: No Does patient have a Durable POA for Healthcare: No - Code Status/Comfort Care Code Status Assessed: Yes Code Status: Full Code
[2018-02-10] MEDS ORDERED: HALOPERIDOL LACT 5 MG/ML INJ IM PRN (21:09)
[2018-02-10] MEDS ORDERED: FLUMAZENIL 0.1 MG/ML (5 mL VIAL) IV PRN (21:09)
[2018-02-10] MEDS ORDERED: IPRATROPIUM BROM 0.5MG/2.5ML NEB PRN (21:09)
[2018-02-10] MEDS ORDERED: ONDANSETRON 4 MG/2 ML VIAL IV PRN (21:09)
[2018-02-10] MEDS ORDERED: LORazepam 2 MG/ML VIAL IV PRN (21:09)
[2018-02-10] MEDS ORDERED: ALBUTEROL 2.5 MG/3 ML NEB SOL NEB PRN (21:09)
[2018-02-10] MEDS: LORazepam 2 MG/ML VIAL IV SCH (21:52)
[2018-02-10] MEDS: LORazepam 2 MG/ML VIAL IV PRN ×2 (22:14→23:20)
[2018-02-11] MEDS: chlordiazePOXIDE HCl 25 MG CAP PO SCH ×4 (00:37→20:14)
[2018-02-11] MEDS: LORazepam 2 MG/ML VIAL IV SCH ×6 (00:38→21:58)
[2018-02-11 03:04] VITALS: BMI 29.9
[2018-02-11 05:11] LABS: Absolute Lymphocytes (CBC) 0.6 K/uL (0.7-4.9); Absolute Monocytes 0.5 K/uL (0.1-1.3); Absolute Neutrophil 5.8 K/uL (1.8-8.0); Basophils % 0.3 % (0-1.3); Eosinophils % 0.2 % (0-4.4); Hematocrit 38.4 % (39.6-49.0); Lymphocytes % 9.2 % (15.3-44.8); MCH 34.2 pg (27.0-35.0); MCV 97.9 fL (80-100); MPV 7.1 fL (7.6-11.3); Monocytes % 7.6 % (3.3-12.3); RBC Red Blood Cell Count 3.92 M/uL (4.33-5.43)
[2018-02-11 05:36] LABS: BUN Blood Urea Nitrogen 10 mg/dL (6-20); Bicarbonate 29 mEq/L (21-31); Glomerular Filtration Rate > 90 mL/min (=/>90); Glucose Level 138 mg/dL (65-120); Magnesium 2.5 mg/dL (1.8-2.5); Potassium 3.7 mEq/L (3.6-5.0); Sodium Level 132 mEq/L (135-145)
[2018-02-11] MEDS: ENOXAPARIN 40 MG/0.4 ML SQ SCH (08:24)
[2018-02-11] MEDS ORDERED: KCL 20 MEQ/100 mL IVPB 20 MEQ/100 ML BAG IV SCH (09:00)
[2018-02-11] MEDS: FOLIC ACID 1 MG, MULTIVITAMINS INJ 10 ML, THIAMINE HCL 100 MG in NA CHLORIDE 0.9% 1,000 ML IV SCH (09:51)
[2018-02-11] MEDS ORDERED: DIPHENHYDRAMINE 50 MG/ML VIAL IV ONE (14:37)
[2018-02-11] MEDS ORDERED: HALOPERIDOL LACT 5 MG/ML INJ IV PRN (14:37)
--- NOTE | 2018-02-11 14:51 | PN ---
Date of Progress Note: 02/11/2018 Subjective: The patient seen and examined, chart reviewed, and case discussed with RN. The patient states that, he is having some abdominal discomfort, actively tremulous. Review of Systems: Negative except as per HPI. Medications: Reviewed. Physical Examination: Vital Signs: Temperature 97.8, heart rate 96, blood pressure 123/62, respirations 16, and O2 93% on 2 L via nasal cannula. General: Awake, alert, oriented x3. He is in some mild distress due to active withdrawal symptoms. Obese, BMI 30. CV: S1, S2. No murmurs. Regular rate and rhythm. Peripheral pulses present. Respiratory: Moving air well bilaterally. No wheezing. Gastrointestinal: Soft abdomen. Nontender, nondistended. Positive bowel sounds. Extremities: No clubbing, cyanosis, or edema. Neurologic: Nonfocal. The patient does have a resting tremor. Psych: Mood is somewhat dysphoric. Affect is congruent with mood. Insight and judgment are poor. Laboratory Data: Sodium 132, potassium 3.7, chloride 98, CO2 29, BUN 10, creatinine 0.51, glucose 13 8, calcium 9.1, and magnesium 2.5. WBC 7, H and H 13.4, 38.4, platelets 206, and neutrophils 82.7%. UDS negative. Abdominal ultrasound shows unremarkable gallbladder. Chest x-ray shows no intrathora cic process identified, personally reviewed. Assessment: A 47-year-old male; 1.Acute alcohol withdrawal with tremors. No delirium tremens. We will continue with Librium taper and Ativan p.r.n. 2.Alcohol abuse, counseled. 3.Chronic obstructive pulmonary disease. Continue with nebulizer treatments. 4.Nicotine dependence with cigarette smoking, uncomplicated. 5.Essential hypertension. Resume home medications as appropriate. 6.Hyponatremia. Plan: Continue close monitoring in the ICU setting. Continue multivitamins, thiamine, folate, CIWA scale for withdrawal. SA/MODL Voice ID: [id number] Report ID: [id number]
[2018-02-11] MEDS ORDERED: DIPHENHYDRAMINE 50 MG/ML VIAL ONE (14:55)
[2018-02-11] MEDS ORDERED: HALOPERIDOL LACT 5 MG/ML INJ ONE (14:55)
[2018-02-11] MEDS: GABAPENTIN 100 MG CAP PO SCH (20:15)
[2018-02-11] MEDS ORDERED: AMLODIPINE 10 MG TAB PO SCH (21:00)
[2018-02-12] MEDS: LORazepam 2 MG/ML VIAL IV SCH ×4 (01:09→13:09)
[2018-02-12 05:29] LABS: Absolute Lymphocytes (CBC) 2.5 K/uL (0.7-4.9); Absolute Monocytes 0.4 K/uL (0.1-1.3); Absolute Neutrophil 6.3 K/uL (1.8-8.0); Basophils % 0.6 % (0-1.3); Eosinophils % 0.2 % (0-4.4); Hematocrit 39.2 % (39.6-49.0); Lymphocytes % 27.1 % (15.3-44.8); MCH 33.9 pg (27.0-35.0); MCV 99.9 fL (80-100); Monocytes % 4.7 % (3.3-12.3); RBC Red Blood Cell Count 3.92 M/uL (4.33-5.43)
[2018-02-12 05:58] LABS: ALT/SGPT 37 IU/L (10-60); AST/SGOT 36 IU/L (10-42); Alkaline Phosphatase 78 IU/L (42-121); BUN Blood Urea Nitrogen 16 mg/dL (6-20); Bicarbonate 29 mEq/L (21-31); Bilirubin Total 0.7 mg/dL (0.3-1.2); Glomerular Filtration Rate > 90 mL/min (=/>90); Glucose Level 97 mg/dL (65-120); Potassium 3.7 mEq/L (3.6-5.0); Protein, Total 6.3 g/dL (6.0-8.3); Sodium Level 136 mEq/L (135-145)
[2018-02-12] MEDS: chlordiazePOXIDE HCl 25 MG CAP PO SCH ×3 (06:13→12:25)
[2018-02-12] MEDS ORDERED: PANTOPRAZOLE 40MG TABLET PO SCH (06:30)
[2018-02-12] MEDS ORDERED: FLUTICASONE IH SCH (09:00)
[2018-02-12] MEDS ORDERED: predniSONE 10 MG TAB PO SCH (09:00)
[2018-02-12] MEDS ORDERED: MAXZIDE (HCTZ 25/TRIAMTERENE 37.5MG) TAB PO SCH (09:00)
[2018-02-12] MEDS ORDERED: UMECLIDIN IH SCH (09:00)
[2018-02-12] MEDS ORDERED: VILANTER IH SCH (09:00)
[2018-02-12] MEDS: FOLIC ACID 1 MG, MULTIVITAMINS INJ 10 ML, THIAMINE HCL 100 MG in NA CHLORIDE 0.9% 1,000 ML IV SCH (09:55)
[2018-02-12] MEDS: ENOXAPARIN 40 MG/0.4 ML SQ SCH (09:56)
[2018-02-12] MEDS: GABAPENTIN 100 MG CAP PO SCH (09:56)
[2018-02-12] MEDS ORDERED: NICOTINE 21 MG/PAT TD SCH (10:50)
[2018-02-12 14:07] VITALS: BP 149/72
[2018-02-12 14:14] VITALS: O2SAT 98
[2018-02-12 14:27] VITALS: TEMP 97.9
--- NOTE | 2018-02-12 14:43 | PN ---
Date of Progress Note: 02/12/2018 Subjective: The patient seen, examined, chart reviewed, and case discussed with RN. The patient is much more awake and alert. Not having any active tremors or withdrawal symptoms. The patient asking when he is going to be leaving. Review of Systems: Negative except as above. Medications: Reviewed. Physical Examination: Vital Signs: Temperature 98.4, heart rate 92, blood pressure 148/75, respirations 17, and O2 98% on 2 L via nasal cannula. General: awake, alert, oriented x3 without any acute distress. Obese male. CV: S1, S2. No murmurs. Regular rate and rhythm. Peripheral pulses present. Respiratory: Moving air well bilaterally. No wheezing. Gastrointestinal: Soft abdomen: Nontender, nondistended. Positive bowel sounds. Extremities: No clubbing, cyanosis, or edema. Neurologic: Nonfocal. No tremor. Laboratory Data: Sodium 136, potassium 3.7, chloride 101, CO2 29, BUN 16, creatinine 0.52, glucose 97, and calcium 8.9. WBC 9.4, H and H 13.3, 39.2. HIV rapid antibody test pending. Assessment: A 47-year-old male with; 1. Acute alcohol withdrawal with tremors. Continue Librium taper. The patient will finish off Ativan today. 2. Alcohol abuse, counseled. 3. Chronic obstructive pulmonary disease, non oxygen dependent. Continue nebulizer treatment. 4. Nicotine dependence and cigarette smoking, uncomplicated. 5. Essential hypertension, stable. 6. Hyponatremia, corrected. Plan: Continue Librium taper. Likely discharge in the next 24-40 hours if the patient continues to improve. ADDENDUM: Patient left AMA. Patient was counseled against leaving and understands the risks of leaving AMA including but not limited to seizures further withdrawal SA/MODL Voice ID: [id number] Report ID: [id number] VILLA
[2018-02-12] MEDS ORDERED: LORazepam 2 MG/ML VIAL IV SCH (20:19)
--- NOTE | 2018-02-14 01:36 | DS ---
Date of Discharge: 02/12/2018 The patient left AMA on 03/04/2018. Admitting Diagnoses: 1.Alcohol dependence with withdrawal. 2.Alcohol abuse. 3.Chronic obstructive pulmonary disease. 4.Tobacco abuse. 5.Hypertension. 6.Hyponatremia. Discharge Diagnoses: 1.Alcohol dependence. 2.Acute alcohol withdrawal with tremors. 3.Chronic obstructive pulmonary disease, non-oxygen dependent. 4.Nicotine dependence and cigarette smoking, uncomplicated. 5.Essential hypertension. 6.Hyponatremia, corrected. 7.Obesity, body mass index 30. Hospital Course: The patient is a 47-year-old male who was admitted to the hospital due to acute alc ohol withdrawal. The patient drinks on a regular basis. The patient was found to have sodium of 132 , mild AST elevation. The patient was started on Librium taper along with IV Ativan. His sodium lev els improved. He did have tremors, however, no acute delirium tremens. No seizures occurred. The p atient was counseled once he was more awake and alert regarding his alcohol use and recommended to st op alcohol completely once this taper is complete. His UDS otherwise was negative. was HIV pos itive. The patient was checked for HIV. Lab still pending. Abdominal ultrasound was done due to th e elevated liver enzymes and abdominal pain and showed unremarkable gallbladder ultrasound. The siomara ent did well, was out of the acute phase, and was alert and oriented. However, the patient decided t o leave against medical advice. He was counseled against leaving extensively, however, understood th e risks and wanted to leave. The patient signed out AMA. Physical Examination: For physical exam findings, please see progress note dictated on day of discharge. /LOGAN Voice ID: [id number] Report ID: [id number]
[2018-02-15 10:41] LABS: HIV 1/2 Antibody Diff Not indicated.; HIV AG/AB 4TH GEN Non-reactive (Non-reactive)
== END 2018-02-12 14:00 | disposition left against medical advice (07) | DRG 897 ==
LOC: ER 15:01 → ERHOLD 20:44 → 3RD-ICU 21:11
PROVIDERS: ADMIT Internal Medicine; ATTEND Family Medicine
DX: F10.239 Alcohol dependence with withdrawal, unspecified (principal); E87.1 Hypo-osmolality and hyponatremia; R25.1 Tremor, unspecified; J44.9 Chronic obstructive pulmonary disease, unspecified; E66.9 Obesity, unspecified; I10 Essential (primary) hypertension; F17.210 Nicotine dependence, cigarettes, uncomplicated; Z68.30 Body mass index [BMI] 30.0-30.9, adult
CPT/HCPCS: 36415; 71045; 76705; 80048; 80053; 80076; 80307; 81003; 82550; 82553; 82805; 83690; 83735; 83880; 84484; 85025; 85610; 85730; 87389; 93005; 94660; 94760; 96361; 96365; 96366; 96375; 99285; J1630; J1650; J2930; J3360; J3411; J3475; J7030; J7512

== ENCOUNTER 2018-02-24 09:25 | Inpatient (IN) | payer OTHER ==
[2018-02-24] MEDS ORDERED: METHYLPREDNISOLONE 125 MG INJ ONE (10:33)
[2018-02-24] MEDS ORDERED: LORazepam 2 MG/ML VIAL ONE (10:34)
[2018-02-24] MEDS ORDERED: IPRATROPIUM BROM 0.5MG/2.5ML ONE (10:34)
[2018-02-24] MEDS ORDERED: ALBUTEROL 2.5 MG/3 ML NEB SOL ONE (10:34)
[2018-02-24] MEDS ORDERED: NA CHLORIDE 0.9% 1,000 ML ONE (10:34)
--- NOTE | 2018-02-24 10:54 | RAD REPORT ---
EXAM DESCRIPTION: RAD - Chest Single View - 02/24/2018 10:46 am CLINICAL HISTORY: Dyspnea COMPARISON: 02/10/2018 FINDINGS: Portable technique limits examination quality. The lungs are grossly clear. The heart is normal in size. No displaced fractures. IMPRESSION: No acute intrathoracic process suspected.
[2018-02-24 11:08] LABS: Absolute Lymphocytes (CBC) 1.1 K/uL (0.7-4.9); Absolute Monocytes 0.3 K/uL (0.1-1.3); Absolute Neutrophil 9.3 K/uL (1.8-8.0); Basophils % 0.6 % (0-1.3); Eosinophils % 0.1 % (0-4.4); Hematocrit 42.6 % (39.6-49.0); Lymphocytes % 10.3 % (15.3-44.8); MCH 34.3 pg (27.0-35.0); MCV 100.2 fL (80-100); MPV 6.9 fL (7.6-11.3); Monocytes % 2.5 % (3.3-12.3); RBC Red Blood Cell Count 4.25 M/uL (4.33-5.43)
[2018-02-24 11:16] LABS: Bicarbonate 23 mEq/L (21-31); Glucose Level 145 mg/dL (65-120); Sodium Level 125 mEq/L (135-145)
[2018-02-24 11:22] LABS: ALT/SGPT 39 IU/L (10-60); AST/SGOT 32 IU/L (10-42); Albumin 4.9 g/dL (3.2-5.5); Alkaline Phosphatase 89 IU/L (42-121); BUN Blood Urea Nitrogen 8 mg/dL (6-20); Bilirubin Total 0.4 mg/dL (0.3-1.2); Protein, Total 8.3 g/dL (6.0-8.3)
[2018-02-24 11:32] LABS: Alcohol Serum/Plasma 250 mg/dl
--- NOTE | 2018-02-24 13:49 | EDPHYS ---
Physician Documentation [facility] Name: Randy Briones Age: 47 yrs Sex: Male : 1970 Arrival Date: 02/24/2018 Time: 09:28 Bed 14 Private MD: Adrianna Michaels H ED Physician Quentin Maciel HPI: 02/24 10:19 This 47 yrs old Male presents to ER via Ambulatory with complaints of ps1 Breathing Difficulty. 10:19 hx of COPD and smoking. Says he gets exacerbations when he goes outside in heavy pollen ps1 with wheezing. Heavy drinker. Drank a 6 pack today. Recent admission and left AMA. Now wanting another go at withdrawal. . Historical: - Allergies: 09:50 Lisinopril; iw - PMHx: 09:50 COPD; Hypertension; Alcoholism; iw - PSHx: 09:50 finger amputation; iw - Immunization history:: Adult Immunizations up to date. - Social history:: Smoking status: Patient uses tobacco products, smokes two packs cigarettes per day. Vital Signs: 09:50 BP 134 / 99; Pulse 101; Resp 24 S; Temp 97.4(TE); Pulse Ox 97% on R/A; Weight 84.82 kg; iw Height 5 ft. 4 in. (162.56 cm); Pain 0/10; 11:16 BP 113 / 90; Pulse 108; Resp 15; Pulse Ox 95% on R/A; aj1 13:03 BP 144 / 105; Pulse 97; Resp 14; Pulse Ox 96% on R/A; dh3 13:46 BP 150 / 96; Pulse 111; Resp 15; Pulse Ox 96% on R/A; mh5 14:30 BP 126 / 69; Pulse 109; Resp 15; Pulse Ox 95% on R/A; aj1 15:30 BP 161 / 98; Pulse 106; Resp 20; Pulse Ox 95% on R/A; aj1 16:38 BP 166 / 93; Pulse 114; Resp 18; Temp 97.6(O); Pulse Ox 97% on R/A; aj1 09:50 Body Mass Index 32.10 (84.82 kg, 162.56 cm) iw MDM: 10:18 Patient medically screened. ps1 02/24 10:17 Order name: CBC with Diff; Complete Time: 11:10 ps1 02/24 10:17 Order name: CMP; Complete Time: 12:16 02/24 10:17 Order name: Troponin (emerg Dept Use Only); Complete Time: 12:16 ps1 02/24 10:17 Order name: ETOH Level; Complete Time: 12:16 02/24 10:17 Order name: CXR XRAY; Complete Time: 11:10 02/24 12:16 Order name: Magnesium; Complete Time: 12:56 ps1 02/24 12:49 Order name: EKG Electrocardiogram EDMS Administered Medications: 10:42 Drug: SOLU-Medrol 125 mg Route: IVP; Site: right antecubital; iw 16:41 Follow up: Response: No adverse reaction aj1 10:42 Drug: NS 0.9% 1000 ml Route: IV; Rate: 1 bolus; Site: right antecubital; iw 16:41 Follow up: IV Status: Completed infusion; IV Intake: 1000ml aj1 10:42 Drug: Ativan 1 mg Route: IVP; Site: right antecubital; iw 16:41 Follow up: Response: No adverse reaction aj1 10:54 Drug: DuoNeb (3:1) (2.5 mg - 0.5 mg) 3 ml Route: Nebulizer; iw 16:41 Follow up: Response: No adverse reaction aj1 Disposition: 02/24/18 13:48 Hospitalization ordered by Taran Ma for Inpatient Admission. Preliminary diagnosis are hyponatremia, acute exacerbation of copd. - Bed requested for Telemetry/MedSurg (Inpatient). - Status is Inpatient Admission. aj1 - Condition is Fair. - Problem is an acute exacerbation. - Symptoms have worsened. UTI on Admission? No Addendum: 03/06/2018 05:58 Addendum: 47 y/o male presenting with COPD exacerbation and shortness of breath. Hx of p s1 smoking and continues to smoke. 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 Patient states that he was recently in the ICU and left AMA. He now states that he has increased WOB and wheezing. States he is worse and will be compliant with admission. ROS: MARA, Anxiety, NO EVERETT, CP, Leg swelling. PHY: anxious, ncat, tachypnea, wheezing, tachycardia. soft NT + BS, no ARELI. Labs and imaging reviewed and admitted for COPD exacerbation. . Signatures: Dispatcher [employer] Aneta Wilcox RN RN aj1 Rebeca Lizama RN RN iw Irasema Peters RN RN df Singer, Phillip, MD MD ps1
--- NOTE | 2018-02-24 13:49 | ER ---
Nurse's Notes [facility] Name: Randy Briones Age: 47 yrs Sex: Male : 1970 Arrival Date: 02/24/2018 Time: 09:28 Bed 14 Private MD: Adrianna Michaels H Diagnosis: hyponatremia;acute exacerbation of copd Presentation: 02/24 09:46 Presenting complaint: Patient states: has cut down smoking but the breathing is getting iw worse, I 'm not allowed to have any drugs in me, I'm not allowed to have pain meds because they drug test me, so I use cold beer as a sedative, reports drinking 6 pack of beer this morning, has been having "breathing attacks" and his ears are hurting, gets pain on right side during his "attacks" and can;t breathe. Transition of care: patient was not received from another setting of care. Onset of symptoms was February 24, 2018. Initial Sepsis Screen: Does the patient meet any 2 criteria? No. Patient's initial sepsis screen is negative. Does the patient have a suspected source of infection? No. Patient's initial sepsis screen is negative. Care prior to arrival: None. 09:46 Method Of Arrival: Ambulatory iw 09:46 Acuity: CANDACE 3 iw Triage Assessment: 09:48 Respiratory: Onset: The symptoms/episode began/occurred today. iw Historical: - Allergies: 09:50 Lisinopril; iw - PMHx: 09:50 COPD; Hypertension; Alcoholism; iw - PSHx: 09:50 finger amputation; iw - Immunization history:: Adult Immunizations up to date. - Social history:: Smoking status: Patient uses tobacco products, smokes two packs cigarettes per day. Screenin:42 Abuse screen: Denies threats or abuse. Denies injuries from another. Nutritional iw screening: No deficits noted. Tuberculosis screening: No symptoms or risk factors identified. Fall Risk IV access (20 points). Assessment: 10:42 Reassessment: Patient appears in no apparent distress at this time. Patient and/or iw family updated on plan of care and expected duration. Pain level reassessed. Patient is alert, oriented x 3, equal unlabored respirations, skin warm/dry/pink. 11:16 General: Appears in no apparent distress. uncomfortable, Behavior is anxious, Smells of aj1 alcohol. Pain: Complains of pain in face, right ear and left ear Pain does not radiate. Pain currently is 8 out of 10 on a pain scale. Neuro: Level of Consciousness is awake, alert, obeys commands, Oriented to person, place, time, situation, Speech is normal, Facial symmetry appears normal. Cardiovascular: Reports shortness of breath, Heart tones S1 S2 present Patient's skin is warm and dry. Rhythm is sinus tachycardia. Respiratory: Reports shortness of breath cough that is hacking, persistent Airway is patent Respiratory effort is even, unlabored, Respiratory pattern is regular, symmetrical, Patient has coughing fits where he becomes very short of breath Breath sounds with wheezes bilaterally. the patient has mild shortness of breath. GI: No signs and/or symptoms were reported involving the gastrointestinal system. : No signs and/or symptoms were reported regarding the genitourinary system. EENT: Reports ear pain. Derm: No signs and/or symptoms reported regarding the dermatologic system. Skin is pink, warm \\T\\ dry. normal. Musculoskeletal: No signs and/or symptoms reported regarding the musculoskeletal system. Circulation, motion, and sensation intact. 12:15 Reassessment: Patient appears in no apparent distress at this time. No changes from aj1 previously documented assessment. Patient and/or family updated on plan of care and expected duration. Pain level reassessed. Patient is alert, oriented x 3, equal unlabored respirations, skin warm/dry/pink. 13:30 Reassessment: Patient appears in no apparent distress at this time. No changes from aj1 previously documented assessment. Patient and/or family updated on plan of care and expected duration. Pain level reassessed. Patient is alert, oriented x 3, equal unlabored respirations, skin warm/dry/pink. 14:30 Reassessment: Patient and/or family updated on plan of care and expected duration. Pain aj1 level reassessed. General: Appears in no apparent distress. comfortable, Behavior is calm, cooperative. Neuro: Level of Consciousness is awake, alert, obeys commands, Oriented to person, place, time, situation, Speech is normal, Facial symmetry appears normal. Cardiovascular: Patient's skin is warm and dry. Rhythm is sinus tachycardia. Respiratory: Airway is patent Respiratory effort is even, unlabored, Respiratory pattern is regular, symmetrical, Breath sounds with wheezes bilaterally. Derm: Skin is pink, warm \\T\\ dry. normal. Musculoskeletal: Circulation, motion, and sensation intact. 15:30 Reassessment: Patient appears in no apparent distress at this time. No changes from aj1 previously documented assessment. Patient and/or family updated on plan of care and expected duration. Pain level reassessed. Patient is alert, oriented x 3, equal unlabored respirations, skin warm/dry/pink. 16:30 Reassessment: Patient appears in no apparent distress at this time. No changes from aj1 previously documented assessment. Patient and/or family updated on plan of care and expected duration. Pain level reassessed. Patient is alert, oriented x 3, equal unlabored respirations, skin warm/dry/pink. Vital Signs: 09:50 BP 134 / 99; Pulse 101; Resp 24 S; Temp 97.4(TE); Pulse Ox 97% on R/A; Weight 84.82 kg; iw Height 5 ft. 4 in. (162.56 cm); Pain 0/10; 11:16 BP 113 / 90; Pulse 108; Resp 15; Pulse Ox 95% on R/A; aj1 13:03 BP 144 / 105; Pulse 97; Resp 14; Pulse Ox 96% on R/A; dh3 13:46 BP 150 / 96; Pulse 111; Resp 15; Pulse Ox 96% on R/A; mh5 14:30 BP 126 / 69; Pulse 109; Resp 15; Pulse Ox 95% on R/A; aj1 15:30 BP 161 / 98; Pulse 106; Resp 20; Pulse Ox 95% on R/A; aj1 16:38 BP 166 / 93; Pulse 114; Resp 18; Temp 97.6(O); Pulse Ox 97% on R/A; aj1 09:50 Body Mass Index 32.10 (84.82 kg, 162.56 cm) iw ED Course: 09:28 Patient arrived in ED. mr 09:28 Adrianna Michaels DO is Private Physician. mr 09:50 Triage completed. iw 09:50 Arm band placed on. iw 10:07 Quentin Maciel MD is Attending Physician. ps1 10:26 Rebeca Lizama, BRIGETTE is Primary Nurse. iw 10:26 Initial lab(s) drawn, by me, held in ED. Inserted saline lock: 20 gauge in right iw antecubital area, using aseptic technique. Blood collected. 10:30 Patient has correct armband on for positive identification. Placed in gown. Call light aj1 in reach. Side rails up X 1. gambling monitor on. Pulse ox on. NIBP on. 10:39 EKG done, by pathology tech. reviewed by Quentin Maciel MD. tc 10:42 sent to lab. iw 10:43 X-ray completed. Portable x-ray completed in exam room. Patient tolerated procedure la2 well. 10:46 CXR XRAY In Process Unspecified. EDMS 13:48 Taran Ma MD is Hospitalizing Provider. ps1 15:09 No provider procedures requiring assistance completed. aj1 16:40 Report given to BRIGETTE Henderson on 4th floor. aj1 16:40 Patient admitted, IV remains in place. aj1 Administered Medications: 10:42 Drug: SOLU-Medrol 125 mg Route: IVP; Site: right antecubital; iw 16:41 Follow up: Response: No adverse reaction aj1 10:42 Drug: NS 0.9% 1000 ml Route: IV; Rate: 1 bolus; Site: right antecubital; iw 16:41 Follow up: IV Status: Completed infusion; IV Intake: 1000ml aj1 10:42 Drug: Ativan 1 mg Route: IVP; Site: right antecubital; iw 16:41 Follow up: Response: No adverse reaction aj1 10:54 Drug: DuoNeb (3:1) (2.5 mg - 0.5 mg) 3 ml Route: Nebulizer; iw 16:41 Follow up: Response: No adverse reaction aj1 Intake: 16:41 IV: 1000ml; Total: 1000ml. aj1 Outcome: 13:48 Decision to Hospitalize by Provider. ps1 16:40 Admitted to Tele accompanied by tech, via wheelchair, room 413, with chart. aj1 16:40 Condition: stable 16:40 Discharge instructions given to patient, Instructed on the need for admit, Demonstrated understanding of instructions. 16:42 Patient left the ED. aj1 Signatures: Dispatcher [employer] EDMS Aneta Luke RN RN [email or web address] Jenniffer Canela Irene, RN RN Taylor eKith, counter control operator EKG [facility] Jenniffer Foster [facility] Gayle Hernández dh3 Leslie Rainey Phillip, MD MD ps1 Corrections: (The following items were deleted from the chart) 12:51 12:49 BP 113 / 90; Pulse 109bpm; Resp 18bpm; Pulse Ox 98% RA; 3 3
--- NOTE | 2018-02-24 14:53 | EKG ---
Test Date: 2018-02-24 Test Time: 10:29:41 Sand Sifter: LIBERTY MEASUREMENT RESULTS: Intervals: Rate: 97 ND: 136 QRSD: 98 QT: 378 QTc: 480 [place]: P: 60 ND: 136 QRS: 68 T: 73 INTERPRETIVE STATEMENTS: Normal sinus rhythm Prolonged QT Abnormal ECG Compared to ECG 02/10/2018 15:43:47 Prolonged QT interval now present Sinus tachycardia no longer present ST (T wave) deviation no longer present Electronically Signed On 02-24-18 14:52:49 CDT by Wilber Ray
[2018-02-24] MEDS ORDERED: ONDANSETRON 4 MG/2 ML VIAL IV PRN (15:37)
[2018-02-24] MEDS ORDERED: ALBUTEROL 2.5 MG/3 ML NEB SOL NEB PRN (15:37)
[2018-02-24] MEDS ORDERED: IPRATROPIUM BROM 0.5MG/2.5ML NEB PRN (15:37)
[2018-02-24] MEDS ORDERED: LORazepam 2 MG/ML VIAL IV PRN (15:38)
[2018-02-24] MEDS ORDERED: FLUMAZENIL 0.1 MG/ML (5 mL VIAL) IV PRN (15:38)
[2018-02-24] MEDS: FOLIC ACID 1 MG TABLET PO SCH (17:12)
[2018-02-24] MEDS: THIAMINE HCL 100 MG TABLET PO SCH (17:12)
[2018-02-24] MEDS: LORazepam 2 MG/ML VIAL IV SCH ×2 (17:12→20:50)
[2018-02-24] MEDS: MULTIVITAMIN TAB PO SCH (17:12)
[2018-02-24] MEDS: METHYLPREDNISOLONE 40 MG INJ IV SCH (17:14)
[2018-02-24 17:56] VITALS: BMI 32.1
[2018-02-24] MEDS: ACETAMINOPHEN 500 MG TAB PO PRN (18:27)
--- NOTE | 2018-02-24 19:59 | P.HP ---
Certification for Inpatient Patient admitted to: Inpatient With expected LOS: >2 Midnights Practitioner: I am a practitioner with admitting privileges, knowledge of patient current condition, hospital course, and medical plan of care. Services: Services provided to patient in accordance with Admission requirements found in Title 42 Section 412.3 of the Code of Federal Regulations Patient History Date of Service: 02/24/18 Reason for admission: COPD exacerbation History of Present Illness: Mr Briones is a 47 years old male with history of alcohol dependency, tobacco abuse, COPD, who was admitted early this month due to alcohol withdrawal since he wanted to stop drinking, however, after few days in the hospital he left AMA. He is still drinking alcohol, and he said that cut down smoking to 1/2 pack day. He came to ED complaining of progressive SOB, he has productive cough with brownish sputum. SOB got worse with ambulation or after coughing. No history of fever or chills. Lab work remarkable for hyponatremia 125, WBC WNL, alcohol level 250. No chest pain reported. Allergies Lisinopril Adverse Reaction (Mild, Uncoded 02/11/18 13:05) Shortness of breath Home Medications: Amlodipine Besylate [Norvasc] 10 mg PO BEDTIME 02/10/18 Albuterol Sulfate [Albuterol Sulfate 0.083% Neb Soln] 2.5 mg NEB DAILY 02/11/18 Esomeprazole Mag Trihydrate [Nexium] 40 mg PO DAILY 02/11/18 Fluticasone/Umeclidin/Vilanter [Trelegy Ellipta 100-62.5-25] 1 each IH DAILY 03/26 Gabapentin [Neurontin] 200 mg PO BID 02/11/18 Ipratropium [place] 0.2 mg NEB DAILY 02/11/18 Prednisone [Deltasone] 10 mg PO DAILY 02/11/18 Triamterene/Hydrochlorothiazid [Triamterene-Hctz 37.5-25 mg Tb] 1 each PO DAILY 02/11/18 - Past Medical/Surgical History Has patient received pneumonia vaccine in the past: No Diabetic: No -: htn, copd, colitis -: alcohol abuse -: tobacco abuse -: 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 moist/pink, EOMI, Sclerae nonicteric Neck: Supple, 2+ carotid pulse no bruit, No LAD, Without JVD or thyroid abnormality Respiratory: Diminished, Crackles/rales (mild bilateral fine crackles), Expiratory wheezes Cardiovascular: Regular rate/rhythm, Normal S1 S2 Gastrointestinal: Normal bowel sounds, No tenderness Musculoskeletal: No tenderness Integumentary: No rashes Neurological: Normal speech, Normal strength at 5/5 x4 extr, Normal tone, Normal affect Lymphatics: No axilla or inguinal lymphadenopathy - Studies Laboratory Data (last 24 hrs) 02/24/18 10:30: Magnesium 2.1 02/24/18 10:30: Sodium 125 L, Potassium 4.0, BUN 8, Creatinine 0.64, Glucose 145 H, Total Bilirubin 0.4, AST 32, ALT 39, Alkaline Phosphatase 89 02/24/18 10:30: WBC 10.7, Hgb 14.6, Hct 42.6, Plt Count 400 D Assessment and Plan - Problems (Diagnosis) (1) Alcohol abuse Onset Date: 02/11/18 Current Visit: No Status: Acute (2) COPD (chronic obstructive pulmonary disease) Onset Date: 02/11/18 Current Visit: No Status: Acute Qualifiers: COPD type: unspecified COPD Qualified Code(s): J44.9 - Chronic obstructive pulmonary disease, unspecified (3) HTN (hypertension) Onset Date: 02/11/18 Current Visit: No Status: Acute Qualifiers: Hypertension type: essential hypertension Qualified Code(s): I10 - Essential (primary) hypertension (4) Hyponatremia Onset Date: 02/11/18 Current Visit: No Status: Acute (5) Tobacco abuse Onset Date: 02/11/18 Current Visit: No Status: Acute - Plan The patient will be admitted to the hospital due to COPD. CXR showed no acute infiltrate, WBC WNL, afebrile, He does not have an acute exacerbation, but he needs medication optimization, will consult Dr Martinez. Will watch for ETOH withdrawal. Continue breathing treatments and IV steroids. - Advance Directives Does patient have a Living Will: No Does patient have a Durable POA for Healthcare: No - Code Status/Comfort Care Code Status Assessed: Yes Code Status: Full Code
[2018-02-25] MEDS: LORazepam 2 MG/ML VIAL IV SCH ×8 (00:09→23:46)
[2018-02-25] MEDS: METHYLPREDNISOLONE 40 MG INJ IV SCH ×2 (00:09→09:01)
[2018-02-25 04:03] LABS: Absolute Lymphocytes (CBC) 0.9 K/uL (0.7-4.9); Absolute Monocytes 0.3 K/uL (0.1-1.3); Absolute Neutrophil 9.4 K/uL (1.8-8.0); Basophils % 0.2 % (0-1.3); Eosinophils % 0.1 % (0-4.4); Lymphocytes % 8.3 % (15.3-44.8); MCH 34.5 pg (27.0-35.0); MCV 100.3 fL (80-100); MPV 6.7 fL (7.6-11.3); RBC Red Blood Cell Count 3.98 M/uL (4.33-5.43)
[2018-02-25 04:21] LABS: BUN Blood Urea Nitrogen 15 mg/dL (6-20); Bicarbonate 28 mEq/L (21-31); Glucose Level 152 mg/dL (65-120); Potassium 4.1 mEq/L (3.6-5.0); Sodium Level 134 mEq/L (135-145)
[2018-02-25 04:33] LABS: Blood Morphology Comment NOT SEEN (NOT SEEN); Platelet Estimate ADEQ; Urine White Blood Cell Casts OK
[2018-02-25] MEDS: MULTIVITAMIN TAB PO SCH (08:24)
[2018-02-25] MEDS: FOLIC ACID 1 MG TABLET PO SCH (08:25)
[2018-02-25] MEDS: THIAMINE HCL 100 MG TABLET PO SCH (08:25)
[2018-02-25] MEDS ORDERED: NICOTINE 21 MG/PAT TD SCH ×2 (09:00→21:00)
[2018-02-25] MEDS: MAXZIDE (HCTZ 25/TRIAMTERENE 37.5MG) TAB PO SCH (10:00)
[2018-02-25] MEDS ORDERED: HOME MED 1 EA UNK (Esomeprazole Mag Trihydrate [Nexium] 40 MG) PO SCH (10:00)
[2018-02-25] MEDS ORDERED: HOME MED 1 EA UNK (Fluticasone/Umeclidin/Vilanter [Trelegy Ellipta 100-62.5-25] 1 EACH) IH SCH (10:00)
[2018-02-25] MEDS: GUAIFENESIN 600 MG SA TAB PO SCH ×2 (10:25→20:59)
--- NOTE | 2018-02-25 15:49 | PN ---
Date of Progress Note: 02/25/2018 Subjective: The patient is seen and examined. Chart reviewed and case discussed with RN. The patie nt states that his breathing is better. Still on supplemental oxygen. The patient denies any acute delirium episodes overnight. Does have the shakes. Review of Systems: Negative except as above. Medications: Reviewed. Physical Examination: Vital Signs: Temperature 98.6, heart rate 99, blood pressure 149/91, respirations 18, O2 98% on 2 L via nasal cannula. General: Awake, alert, oriented x3, in some mild distress. Obese, BMI 32. CV: S1, S2. Peripheral pulses present. No murmurs. Respiratory: Moving air well bilaterally. No wheezing. Gastrointestinal: Abdomen is soft, nontender, nondistended. Positive bowel sounds. Extremities: No clubbing, cyanosis, or edema. Neurologic: Nonfocal. Laboratory Data: Sodium 134, potassium 4.1, chloride 100, CO2 of 28, BUN 15, creatinine 0.59, glucos e 152, calcium 9.8. WBC 10.7, H and H 13.7 and 40, MCV 100.3, platelets 331, and neutrophils 88.4. Assessment And Plan: A 47-year-old male with: 1.Acute chronic obstructive pulmonary disease exacerbation. We will continue with steroids and nebu lizers which continues to improve. We will wean steroids. 2.Alcohol dependence with elevated alcohol level of 250. Currently on multivitamins, folate, thiami ne, and Ativan. Continue to monitor. CIWA protocol. The patient counseled extensively. States felix t he is not ready to quit at this time. 3.Essential hypertension stable. 4.Hyponatremia, likely secondary to chronic alcohol use, improved significantly. 5.Obesity, BMI 32.1. 6.Nicotine dependence and cigarette smoking, uncomplicated. We will continue to monitor. 7.Gastrointestinal and deep venous thrombosis prophylaxis addressed. Plan: Follow up with Pulmonology recommendations, wean steroids. Respiratory therapy to evaluate th e patient for home oxygen need. SA/MODL Voice ID: [id number] Report ID: [id number]
[2018-02-25] MEDS: ACETAMINOPHEN 500 MG TAB PO PRN (16:08)
[2018-02-25] MEDS: VILANTER IH SCH (16:09)
[2018-02-25] MEDS: FLUTICASONE IH SCH (16:09)
[2018-02-25] MEDS: UMECLIDIN IH SCH (16:09)
[2018-02-25] MEDS: FLUTICASONE 50MCG NASAL SPRAY NAS SCH (20:57)
[2018-02-25] MEDS: GABAPENTIN 300 MG CAP PO PRN (20:59)
[2018-02-25] MEDS: predniSONE 20 MG TAB PO SCH (20:59)
[2018-02-25] MEDS ORDERED: AMLODIPINE 10 MG TAB PO SCH (21:00)
[2018-02-25 23:14] VITALS: O2SAT 97
[2018-02-26] MEDS: LORazepam 2 MG/ML VIAL IV SCH ×3 (03:54→12:36)
[2018-02-26] MEDS ORDERED: PANTOPRAZOLE 40MG TABLET PO SCH (06:30)
[2018-02-26 06:36] LABS: Absolute Lymphocytes (CBC) 1.9 K/uL (0.7-4.9); Absolute Monocytes 0.5 K/uL (0.1-1.3); Absolute Neutrophil 12.1 K/uL (1.8-8.0); Basophils % 0.4 % (0-1.3); Hematocrit 42.4 % (39.6-49.0); Lymphocytes % 13.3 % (15.3-44.8); MCH 33.7 pg (27.0-35.0); MCV 101.4 fL (80-100); Monocytes % 3.6 % (3.3-12.3); RBC Red Blood Cell Count 4.18 M/uL (4.33-5.43)
[2018-02-26 06:39] LABS: BUN Blood Urea Nitrogen 16 mg/dL (6-20); Bicarbonate 28 mEq/L (21-31); Glucose Level 124 mg/dL (65-120); Magnesium 2.4 mg/dL (1.8-2.5); Potassium 4.4 mEq/L (3.6-5.0); Sodium Level 134 mEq/L (135-145)
[2018-02-26] MEDS: FLUTICASONE 50MCG NASAL SPRAY NAS SCH (09:22)
[2018-02-26] MEDS: FLUTICASONE IH SCH (09:23)
[2018-02-26] MEDS: VILANTER IH SCH (09:23)
[2018-02-26] MEDS: UMECLIDIN IH SCH (09:23)
[2018-02-26] MEDS: THIAMINE HCL 100 MG TABLET PO SCH (09:24)
[2018-02-26] MEDS: FOLIC ACID 1 MG TABLET PO SCH (09:24)
[2018-02-26] MEDS: MULTIVITAMIN TAB PO SCH (09:24)
[2018-02-26] MEDS: predniSONE 20 MG TAB PO SCH (09:24)
[2018-02-26] MEDS: MAXZIDE (HCTZ 25/TRIAMTERENE 37.5MG) TAB PO SCH (09:25)
[2018-02-26] MEDS: GUAIFENESIN 600 MG SA TAB PO SCH (09:28)
[2018-02-26 09:59] LABS: Blood Morphology Comment NOT SEEN (NOT SEEN); Platelet Estimate ADEQ
[2018-02-26] MEDS: GABAPENTIN 300 MG CAP PO PRN (12:35)
[2018-02-26] MEDS ORDERED: LABETALOL 20 MG/4ML SYRINGE IV ONE (13:23)
[2018-02-26 13:24] VITALS: TEMP 98
[2018-02-26 15:04] VITALS: BP 138/88
[2018-02-26] MEDS ORDERED: LORazepam 2 MG/ML VIAL IV SCH (15:40)
--- NOTE | 2018-02-27 06:58 | DS ---
Date of Discharge: 02/26/2018 Consultants: None. Admitting Diagnoses: 1.Acute chronic obstructive pulmonary disease exacerbation. 2.Alcohol dependent. 3.Essential hypertension. 4.Hyponatremia. 5.Nicotine dependence with cigarette smoking. Discharge Diagnoses: 1.Acute chronic obstructive pulmonary disease exacerbation, improved. 2.Alcohol dependence with mild withdrawal symptoms, elevated alcohol level of 250. 3.Essential hypertension. 4.Hyponatremia, corrected. 5.Obesity, BMI 32.1. 6.Nicotine dependence with cigarette smoking, uncomplicated. Hospital Course: The patient is a chronic alcoholic, 47-year-old male who appears older than his sta sanjay age with history of significant tobacco use, COPD, who was recently discharged from the hospital for alcohol related symptoms, comes back in for COPD exacerbation. The patient was started on breath ing treatments and IV steroids. His workup revealed normal white count; however, he did have hyponat remia related to his chronic alcohol use. He was put on IV fluids and multivitamins as well as Ativa n for alcohol detox. He was also placed on fluid-restricted diet. His serum alcohol level was 250. His chest x-ray did not show any acute infiltrate. The patient's breathing significantly improved o germain the course of the hospital stay with breathing treatments. He was encouraged to quit, however co ntinued to go downstairs to smoke. He did have some elevated blood pressure and some mild withdrawal symptoms, which improved with Ativan. The patient was counseled extensively on smoking cessation an d discontinuing alcohol. He was not interested in rehab and stated that most likely he will return t o work and continue drinking. The patient understands the risks of continued alcohol and tobacco use including morbidity, mortality, however does not wish to change his habits. The patient was then sl owly weaned off oxygen. He was seen by Respiratory Therapy for home oxygen need. He was ambulated w ith a 2-minute test, then 6-minute test, however did not meet the criteria for oxygen and from oxygen , his room air sat after activity was 96%. The patient was then cleared for discharge and was sent h [facility] in a stable condition. Activity: No strenuous activity. Return to work on Thursday. Followup: Follow up with primary care physician in 2 to 3 days. 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 Return to ER for worsening condition. Stop smoking. Attend AA meetings or go to rehab to dis continue alcohol. Diet: Heart healthy. Medications: As per medication reconciliation list. Total time spent discharging patient was 36 minutes. Physical Examination: General: Awake, alert, oriented, in no distress. Obese male. BMI 32. CV: S1, S2. No murmurs. Respiratory: Moving air well bilaterally. No wheezing. Abdomen: Soft, nontender, nondistended. Positive bowel sounds. Extremities: No clubbing, cyanosis, edema. Neurologic: Nonfocal. SA/MODL Voice ID: [id number] Report ID: [id number]
== END 2018-02-26 15:36 | disposition home or self-care (01) | DRG 191 ==
LOC: ER 09:25 → ERHOLD 13:51 → 4TH 16:30
PROVIDERS: ADMIT Family Medicine; ATTEND Internal Medicine
DX: J44.1 Chronic obstructive pulmonary disease with (acute) exacerbation (principal); E87.1 Hypo-osmolality and hyponatremia; F10.20 Alcohol dependence, uncomplicated; I10 Essential (primary) hypertension; Z72.0 Tobacco use; E66.9 Obesity, unspecified; Z68.32 Body mass index [BMI] 32.0-32.9, adult; Y90.8 Blood alcohol level of 240 mg/100 ml or more
CPT/HCPCS: 36415; 71045; 80048; 80053; 80320; 83735; 84484; 85025; 93005; 94640; 94760; 96361; 96374; 96375; 99285; J2920; J2930; J7030; J7512

== ENCOUNTER 2018-07-19 05:55 | Inpatient (IN) | payer OTHER, SELFPAY ==
[2018-07-19] MEDS ORDERED: ALBUTEROL 2.5 MG/3 ML NEB SOL ONE (06:06)
[2018-07-19] MEDS ORDERED: IPRATROPIUM BROM 0.5MG/2.5ML ONE (06:06)
[2018-07-19] MEDS ORDERED: METHYLPREDNISOLONE 125 MG INJ ONE (06:20)
[2018-07-19 06:48] LABS: Absolute Lymphocytes (CBC) 1.7 K/uL (0.7-4.9); Absolute Monocytes 0.7 K/uL (0.1-1.3); Absolute Neutrophil 13.5 K/uL (1.8-8.0); Basophils % 0.7 % (0-1.3); Eosinophils % 0.4 % (0-4.4); Hematocrit 46.5 % (39.6-49.0); Lymphocytes % 10.4 % (15.3-44.8); MCH 34.5 pg (27.0-35.0); MCV 99.3 fL (80-100); MPV 7.1 fL (7.6-11.3); Monocytes % 4.6 % (3.3-12.3); RBC Red Blood Cell Count 4.68 M/uL (4.33-5.43)
[2018-07-19 06:52] LABS: Arterial Blood Carboxyhemoglob 8.5 % (0-1.5); Blood O2 Saturation 99.1 % (92-98.5)
[2018-07-19] MEDS ORDERED: LORazepam 2 MG/ML VIAL ONE ×2 (06:59→07:38)
[2018-07-19] MEDS ORDERED: MAGNESIUM SULFATE 1 gm IVPB 1 GM/100 ML BAG IV ONE (07:00)
--- NOTE | 2018-07-19 07:01 | EKG ---
Test Date: 2018-07-19 Test Time: 06:12:30 Ring Sewer: JAIMEE MEASUREMENT RESULTS: Intervals: Rate: 121 SC: 122 QRSD: 90 QT: 328 QTc: 465 [place]: P: 64 SC: 122 QRS: 73 T: 52 INTERPRETIVE STATEMENTS: Sinus tachycardia Possible Left atrial enlargement Cannot rule out Anterior infarct, age undetermined Abnormal ECG Compared to ECG 02/24/2018 10:29:41 Myocardial infarct finding now present Sinus rhythm no longer present Prolonged QT interval no longer present Electronically Signed On 07-19-18 07:00:53 CDT by Clovis Barrios
[2018-07-19 07:07] LABS: Protime INR 0.83
[2018-07-19 07:17] LABS: ALT/SGPT 61 U/L (12-78); AST/SGOT 43 U/L (15-37); Albumin 4.1 g/dL (3.4-5.0); Alkaline Phosphatase 101 U/L (45-117); BUN Blood Urea Nitrogen 12 mg/dL (7-18); Bicarbonate 29 mmol/L (21-32); Bilirubin Direct 0.1 mg/dL (0-0.2); Bilirubin Total 0.5 mg/dL (0.2-1.0); CKMB Creatine Kinase MB < 1.0 ng/mL (0.3-3.6); Creatine Phosphokinase 50 U/L (39-308); Glucose Level 119 mg/dL (74-106); NT PRO-BNP 74 pg/mL (<125); Potassium 3.8 mmol/L (3.5-5.1); Protein, Total 8.3 g/dL (6.4-8.2); Sodium Level 138 mmol/L (136-145); Troponin (Emerg Dept Use Only) < 0.02 ng/mL (0.0-0.045)
--- NOTE | 2018-07-19 08:09 | ER ---
Nurse's Notes [facility] Name: Randy Briones Age: 48 yrs Sex: Male : 1970 Arrival Date: 07/19/2018 Time: 05:58 Bed 16 Private MD: Adrianna Michaels H Diagnosis: Chronic obstructive pulmonary disease with (acute) exacerbation Presentation: 07/19 06:32 Presenting complaint: Patient states: Difficulty breathing for the past three days that ao got works during the night. Patient has history of COPD and still smokes about 1/2 pack as reported. Transition of care: patient was not received from another setting of care. Onset of symptoms is unknown. Risk Assessment: Do you want to hurt yourself or someone else? Patient reports no desire to harm self or others. Initial Sepsis Screen: Does the patient meet any 2 criteria? RR > 20 per min. HR > 90 bpm. Yes Does the patient have a suspected source of infection? Yes: No. Patient's initial sepsis screen is negative. Care prior to arrival: None. 06:32 Method Of Arrival: Ambulatory ao 06:32 Acuity: CANDACE 2 ao Triage Assessment: 06:05 General: Appears distressed, uncomfortable, Behavior is anxious. Respiratory: Reports ao shortness of breath at rest Onset: The symptoms/episode began/occurred yesterday, the patient has moderate shortness of breath. Historical: - Allergies: 06:36 Lisinopril; ao - Home Meds: 06:36 Advair Diskus 250-50 mcg/dose Inhl dsdv 1 puff 2 times per day [Active]; albuterol ao sulfate 2.5 mg /3 mL (0.083 %) Inhl nebu 3 mL 3 times per day [Active]; gabapentin 100 mg Oral cap 3 caps 3 times per day [Active]; montelukast 10 mg Oral tab 1 tab once daily [Active]; Nexium 40 mg Oral cpDR 1 cap 2 times per day [Active]; Spiriva with HandiHaler inhalation [Active]; Triamterene-Hydrochlorothiazid Oral once daily [Active]; Norvasc 10 mg Oral tab once daily [Active]; - PMHx: 06:36 Alcoholism; COPD; Hypertension; ao - PSHx: 06:36 None; ao - Immunization history:: Adult Immunizations up to date. - Social history:: Smoking status: Patient uses tobacco products, smokes one-half pack cigarettes per day, Patient uses alcohol, occasionally. Patient/guardian denies using alcohol, street drugs. - Ebola Screening: : Patient negative for fever greater than or equal to 101.5 degrees Fahrenheit, and additional compatible Ebola Virus Disease symptoms Patient denies exposure to infectious person Patient denies travel to an Ebola-affected area in the 21 days before illness onset. Screenin:38 Abuse screen: Denies threats or abuse. Denies injuries from another. Nutritional ao screening: No deficits noted. Tuberculosis screening: No symptoms or risk factors identified. Fall Risk None identified. Assessment: 06:05 General: Appears distressed, Behavior is anxious, Smells of alcohol. ao 06:05 Pain: Complains of pain in scalp. Neuro: Level of Consciousness is awake, alert, obeys ao commands, Oriented to person, place, time, situation, Appropriate for age Moves all extremities. Full function Speech is normal. Cardiovascular: Heart tones S1 S2 Capillary refill < 3 seconds Patient's skin is warm and dry. Pulses are all present. Rhythm is sinus tachycardia. Respiratory: Airway is patent Trachea midline Respiratory effort is labored, Respiratory pattern is tachypnea Breath sounds with wheezes bilaterally. GI: Abdomen is obese. : No signs and/or symptoms were reported regarding the genitourinary system. EENT: No signs and/or symptoms were reported regarding the EENT system. Derm: Skin is intact, Skin is pink, warm \T\ dry. normal, Skin temperature is warm. Musculoskeletal: No signs and/or symptoms reported regarding the musculoskeletal system. 07:08 General: Appears in no apparent distress. uncomfortable, obese, Behavior is calm, hj cooperative, appropriate for age, Smells of alcohol. Pain: Denies pain. Neuro: Level of Consciousness is awake, alert, obeys commands, Oriented to person, place, time, situation, Appropriate for age Moves all extremities. Full function Speech is normal. Cardiovascular: Heart tones S1 S2 present Capillary refill < 3 seconds Patient's skin is warm and dry. Pulses are all present. Rhythm is sinus tachycardia. Respiratory: Airway is patent Trachea midline Respiratory effort is even, labored, Respiratory pattern is tachypnea Breath sounds with wheezes. GI: Abdomen is obese. : No signs and/or symptoms were reported regarding the genitourinary system. EENT: No signs and/or symptoms were reported regarding the EENT system. Derm: Skin is intact, Skin is pink, warm \T\ dry. normal, Skin temperature is warm. Musculoskeletal: No signs and/or symptoms reported regarding the musculoskeletal system. 07:15 Reassessment: pt was complaining , hes not feeling better; provider notified;. hj 07:16 Reassessment: provider in room to assess pt; to continue current management;. hj 07:54 Reassessment: Patient and/or family updated on plan of care and expected duration. Pain hj level reassessed. pt on BIPAP; hospitalist in room;. 08:06 Reassessment: provided pillow to his back and neck area for comfort; in room;. hj 08:45 Reassessment: Patient and/or family updated on plan of care and expected duration. Pain hj level reassessed. RT and electronic organ technician accompanied pt to CT; placed on NRB mask;. 09:00 Reassessment: back from CT;. hj 09:00 Reassessment: Patient and/or family updated on plan of care and expected duration. Pain hj level reassessed. pt was placed on BIPAP;. 09:33 Reassessment: Patient and/or family updated on plan of care and expected duration. Pain hj level reassessed. awaiting for floor RN to call back ext [phone] for report;. Vital Signs: 06:34 BP 142 / 125; Pulse 130; Resp 25 S; Temp 98.4; Pulse Ox 98% on Nebulizer Mask; Weight ao 81.65 kg; Height 5 ft. 4 in. (162.56 cm); Pain 10/10; 07:07 BP 186 / 111; Pulse 131; Resp 24; Pulse Ox 97% on BiPAP; hj 07:18 BP 188 / 94; Pulse 128; Resp 22; Pulse Ox 96% on BiPAP; hj 07:52 BP 138 / 97; Pulse 118; Resp 16; Pulse Ox 96% on BiPAP; hj 08:46 BP 158 / 85; Pulse 118; Resp 22; Pulse Ox 97% on BiPAP; hj 09:34 BP 150 / 90; Pulse 118; Resp 18; Pulse Ox 96% on BiPAP; hj 09:45 BP 152 / 90; Pulse 125; Resp 20; Pulse Ox 97% on BiPAP; hj 06:34 Body Mass Index 30.90 (81.65 kg, 162.56 cm) ao ED Course: 05:58 Patient arrived in ED. es 05:58 Adrianna Michaels DO is Private Physician. es 06:04 Issa Mayberry NP is PHCP. pm1 06:04 Rod Dumas MD is Attending Physician. pm1 06:05 Inserted saline lock: 20 gauge in left antecubital area, using aseptic technique. Blood ao collected. 06:12 Kalin Smith, BRIGETTE is Primary Nurse. ao 06:15 Inserted saline lock: 20 gauge in right antecubital area, using aseptic technique. ao Blood collected. 06:34 Triage completed. ao 06:36 Arm band placed on right wrist. Patient placed in an exam room, in a wheelchair, in ao view of staff members, on oxygen, on playground monitor, on pulse oximetry, Patient notified of wait time. 06:39 Patient has correct armband on for positive identification. playground monitor on. Pulse ao ox on. NIBP on. 06:52 X-ray completed. Portable x-ray completed in exam room. Patient tolerated procedure jb2 well. 06:53 XRAY Chest (1 view) In Process Unspecified. EDMS 07:11 Report received from BRIGETTE Gagnon. hj 08:08 Sotero Leigh DO is Hospitalizing Provider. pm1 08:15 Note: SPOKE W/ PA ABOUT TRANPORTING PT TO CT, WE DECIDED TO WAIT FOR RT TO TRANSPORT PT jg6 FOR PE STUDY DUE TO THE SEVERITY OF DYSPNEA OF THE PT. 08:[address] via stretcher. sw 08:50 CT completed. Patient tolerated procedure well. Patient moved back from CT. sw 09:44 No provider procedures requiring assistance completed. Patient admitted, IV remains in hj place. intact. Administered Medications: 05:55 Drug: Albuterol - atroVENT (3:1) (2.5 mg - 0.5 mg) 3 ml Route: Nebulizer; ao 07:56 Follow up: Response: No adverse reaction hj 06:15 Drug: SOLU-Medrol 125 mg Route: IVP; Site: left antecubital; ao 07:56 Follow up: Response: No adverse reaction 06:58 Drug: Magnesium Sulfate 1 grams Route: IVPB; Infused Over: 1 hrs; Site: left ao antecubital; 07:55 Follow up: IV Status: Infusion continued hj 06:58 Drug: Ativan 0.5 mg Route: IVP; Site: right antecubital; ao 07:15 Follow up: Response: No adverse reaction; Anxiety unchanged hj 07:31 Drug: Ativan 0.5 mg Route: IVP; Site: left antecubital; hj 07:55 Follow up: Response: Anxiety decreased Outcome: 08:08 Decision to Hospitalize by Provider. pm1 09:44 Admitted to Med/surg accompanied by tech, family with patient, via wheelchair, room hj 203, with oxygen, with chart, Other BIPAP, with respiratory Report called to BRIGETTE Staples 09:44 Condition: stable 09:44 Instructed on the need for admit, Demonstrated understanding of instructions. 10:06 Patient left the ED. Signatures: Dispatcher [employer] Lucretia Alexandre Jesse jb2 Warren, Shannon sw Joaquin, Henry, RN RN hj Ortiz, Alex, RN RN ao Marinas, Patrick, NP LICENSING AND REGISTRATION DIRECTOR pm1 Cecy Gomez [id number]
--- NOTE | 2018-07-19 08:09 | EDPHYS ---
Physician Documentation [facility] Name: Randy Briones Age: 48 yrs Sex: Male : 1970 Arrival Date: 07/19/2018 Time: 05:58 Bed 16 Private MD: Adrianna Michaels H ED Physician Rod Dumas HPI: 07/19 07:00 This 48 yrs old Male presents to ER via Ambulatory with complaints of pm1 Breathing Difficulty. 07:00 The patient has shortness of breath that occurred at home. Onset: The symptoms/episode pm1 began/occurred 3 day(s) ago. Duration: The symptoms are continuous. The patient's shortness of breath is aggravated by nothing, is alleviated by nothing. Associated signs and symptoms: Pertinent positives: non-productive cough, Pertinent negatives: chest pain, fever, nausea, vomiting. Severity of symptoms: in the emergency department the symptoms are worse. The patient has experienced similar episodes in the past, several times. The patient has not recently seen a physician. Patient with shortness of breath for 3 days that has been getting worse. History of COPD. Patient smokes 2 packs per day. Shortness of breath started getting worse at 0400. Patient was able to smoke his normal yesterday but was able to only smoke one cigarette this AM. Patient denies fever. Jitteriness and shaking of his feet and hands started after he took to albuterol nebulizer treatments and drank morning coffee. Drank 8 beers last night but reports that he does not require morning alcohol and does not have tremors regularly . Historical: - Allergies: 06:36 Lisinopril; ao - Home Meds: 06:36 Advair Diskus 250-50 mcg/dose Inhl dsdv 1 puff 2 times per day [Active]; albuterol ao sulfate 2.5 mg /3 mL (0.083 %) Inhl nebu 3 mL 3 times per day [Active]; gabapentin 100 mg Oral cap 3 caps 3 times per day [Active]; montelukast 10 mg Oral tab 1 tab once daily [Active]; Nexium 40 mg Oral cpDR 1 cap 2 times per day [Active]; Spiriva with HandiHaler inhalation [Active]; Triamterene-Hydrochlorothiazid Oral once daily [Active]; Norvasc 10 mg Oral tab once daily [Active]; - PMHx: 06:36 Alcoholism; COPD; Hypertension; ao - PSHx: 06:36 None; ao - Immunization history:: Adult Immunizations up to date. - Social history:: Smoking status: Patient uses tobacco products, smokes one-half pack cigarettes per day, Patient uses alcohol, occasionally. Patient/guardian denies using alcohol, street drugs. - Ebola Screening: : Patient negative for fever greater than or equal to 101.5 degrees Fahrenheit, and additional compatible Ebola Virus Disease symptoms Patient denies exposure to infectious person Patient denies travel to an Ebola-affected area in the 21 days before illness onset. ROS: 07:00 Constitutional: Negative for fever, chills, and weight loss, Eyes: Negative for injury, pm1 pain, redness, and discharge, ENT: Negative for injury, pain, and discharge, Neck: Negative for injury, pain, and swelling, Cardiovascular: Negative for chest pain, palpitations, and edema. 07:00 Abdomen/GI: Negative for abdominal pain, nausea, vomiting, diarrhea, and constipation, Back: Negative for injury and pain, : Negative for injury, bleeding, discharge, and swelling, MS/Extremity: Negative for injury and deformity, Skin: Negative for injury, rash, and discoloration, Neuro: Negative for headache, weakness, numbness, tingling, and seizure. 07:00 Respiratory: Positive for cough, shortness of breath. Exam: 07:00 Constitutional: This is a well developed, well nourished patient who is awake, alert, pm1 and in no acute distress. Head/Face: Normocephalic, atraumatic. Eyes: Pupils equal round and reactive to light, extra-ocular motions intact. Lids and lashes normal. Conjunctiva and sclera are non-icteric and not injected. Cornea within normal limits. Periorbital areas with no swelling, redness, or edema. ENT: Nares patent. No nasal discharge, no septal abnormalities noted. Tympanic membranes are normal and external auditory canals are clear. Oropharynx with no redness, swelling, or masses, exudates, or evidence of obstruction, uvula midline. Mucous membranes moist. Neck: Trachea midline, no thyromegaly or masses palpated, and no cervical lymphadenopathy. Supple, full range of motion without nuchal rigidity, or vertebral point tenderness. No Meningismus. Chest/axilla: Normal chest wall appearance and motion. Nontender with no deformity. No lesions are appreciated. Cardiovascular: Regular rate and rhythm with a normal S1 and S2. No gallops, murmurs, or rubs. Normal PMI, no JVD. No pulse deficits. 07:00 Abdomen/GI: Soft, non-tender, with normal bowel sounds. No distension or tympany. No guarding or rebound. No evidence of tenderness throughout. Back: No spinal tenderness. No costovertebral tenderness. Full range of motion. Skin: Warm, dry with normal turgor. Normal color with no rashes, no lesions, and no evidence of cellulitis. MS/ Extremity: Pulses equal, no cyanosis. Neurovascular intact. Full, normal range of motion. 07:00 Respiratory: mild respiratory distress is noted, Respirations: tachypnea, Breath sounds: wheezing: is heard diffusely. 07:00 Neuro: Orientation: is normal, Motor: is normal, moves all fours. Vital Signs: 06:34 BP 142 / 125; Pulse 130; Resp 25 S; Temp 98.4; Pulse Ox 98% on Nebulizer Mask; Weight ao 81.65 kg; Height 5 ft. 4 in. (162.56 cm); Pain 10/10; 07:07 BP 186 / 111; Pulse 131; Resp 24; Pulse Ox 97% on BiPAP; hj 07:18 BP 188 / 94; Pulse 128; Resp 22; Pulse Ox 96% on BiPAP; hj 07:52 BP 138 / 97; Pulse 118; Resp 16; Pulse Ox 96% on BiPAP; hj 08:46 BP 158 / 85; Pulse 118; Resp 22; Pulse Ox 97% on BiPAP; hj 09:34 BP 150 / 90; Pulse 118; Resp 18; Pulse Ox 96% on BiPAP; hj 09:45 BP 152 / 90; Pulse 125; Resp 20; Pulse Ox 97% on BiPAP; hj 06:34 Body Mass Index 30.90 (81.65 kg, 162.56 cm) ao MDM: 06:05 Patient medically screened. pm1 07:30 Data interpreted: Pulse oximetry: on nebulizer is 98 %. Interpretation: normal. pm1 08:06 Data reviewed: vital signs. pm1 08:07 Counseling: I had a detailed discussion with the patient and/or guardian regarding: the pm1 historical points, exam findings, and any diagnostic results supporting the discharge/admit diagnosis, lab results, radiology results, the need for further work-up and treatment in the hospital. 09:08 ED course: Patient denies the need for alcohol in the AM and denies withdrawals and pm1 tremors. Patient reports onset of tremors this AM after albuterol and his coffee this AM. 07/19 06:09 Order name: Basic Metabolic Panel; Complete Time: 07:22 pm1 07/19 06:09 Order name: CBC with Diff; Complete Time: 06:53 pm1 07/19 06:09 Order name: Ckmb; Complete Time: 07:22 pm1 07/19 06:09 Order name: CPK; Complete Time: 07:22 pm1 07/19 06:09 Order name: LFT's; Complete Time: 07:22 pm1 07/19 06:09 Order name: Magnesium; Complete Time: 07:22 pm1 07/19 06:09 Order name: NT PRO-BNP; Complete Time: 07:22 pm1 07/19 06:09 Order name: PT-INR; Complete Time: 07:22 pm1 07/19 06:09 Order name: Ptt, Activated; Complete Time: 07:22 pm1 07/19 06:09 Order name: Troponin (emerg Dept Use Only); Complete Time: 07:22 pm1 07/19 06:09 Order name: ABG; Complete Time: 06:53 pm1 07/19 06:34 Order name: ETOH Level; Complete Time: 07:22 pm1 07/19 07:24 Order name: Blood Culture Adult (2) pm1 07/19 08:10 Order name: Procalcitonin; Complete Time: 10:38 pm1 07/19 06:09 Order name: XRAY Chest (1 view); Complete Time: 09:00 pm1 07/19 06:09 Order name: EKG; Complete Time: 06:10 pm1 07/19 06:09 Order name: Cardiac monitoring; Complete Time: 06:41 pm1 07/19 06:25 Order name: BIPAP pm1 07/19 08:03 Order name: CT Chest For PE Angio pm1 07/19 08:10 Order name: Lactate; Complete Time: 10:38 pm1 07/19 08:18 Order name: Sputum Culture EDMS 07/19 08:18 Order name: CONS Physician Consult [facility] 07/19 08:18 Order name: Respiratory Therapy Consult [facility] 07/19 08:19 Order name: Heart Healthy [facility] 07/19 09:04 Order name: CT; Complete Time: 09:06 [facility] 07/19 06:09 Order name: EKG - Nurse/Tech; Complete Time: 06:41 pm1 07/19 06:09 Order name: IV Saline Lock; Complete Time: 06:41 pm1 07/19 06:09 Order name: Labs collected and sent; Complete Time: 06:41 pm1 07/19 06:09 Order name: O2 Per Protocol; Complete Time: 06:41 pm1 07/19 06:09 Order name: O2 Sat Monitoring; Complete Time: 06:41 pm1 Administered Medications: 05:55 Drug: Albuterol - atroVENT (3:1) (2.5 mg - 0.5 mg) 3 ml Route: Nebulizer; ao 07:56 Follow up: Response: No adverse reaction hj 06:15 Drug: SOLU-Medrol 125 mg Route: IVP; Site: left antecubital; ao 07:56 Follow up: Response: No adverse reaction hj 06:58 Drug: Magnesium Sulfate 1 grams Route: IVPB; Infused Over: 1 hrs; Site: left ao antecubital; 07:55 Follow up: IV Status: Infusion continued hj 06:58 Drug: Ativan 0.5 mg Route: IVP; Site: right antecubital; ao 07:15 Follow up: Response: No adverse reaction; Anxiety unchanged hj 07:31 Drug: Ativan 0.5 mg Route: IVP; Site: left antecubital; hj 07:55 Follow up: Response: Anxiety decreased hj Disposition: 07/19/18 08:08 Hospitalization ordered by Sotero Leigh for Inpatient Admission. Preliminary diagnosis is Chronic obstructive pulmonary disease with (acute) exacerbation. - Bed requested for Telemetry/MedSurg (Inpatient). - Status is Inpatient Admission. hj - Condition is Stable. - Problem is new. - Symptoms have improved. UTI on Admission? No Addendum: 07/20/2018 19:05 Co-signature as Attending Physician, Rod estevez Signatures: Dispatcher [employer] [facility] Leticia Alvarez Pin, MD MD pkl Joaquin Elliott, RN RN hj Kalin Smith RN RN Issa Tucker, AIR LIFT OPERATOR AIR LIFT OPERATOR pm1 Corrections: (The following items were deleted from the chart) 07/19 08:56 08:08 Hospitalization Ordered by Sotero Leigh DO for Inpatient Admission. Preliminary bd diagnosis is Chronic obstructive pulmonary disease with (acute) exacerbation. Bed requested for Telemetry/MedSurg (Inpatient). Status is Inpatient Admission. Condition is Stable. Problem is new. Symptoms have improved. UTI on Admission? No. pm1 10:06 08:56 07/19/2018 08:08 Hospitalization Ordered by Sotero Leigh DO for Inpatient hj Admission. Preliminary diagnosis is Chronic obstructive pulmonary disease with (acute) exacerbation. Bed requested for Telemetry/MedSurg (Inpatient). Status is Inpatient Admission. Condition is Stable. Problem is new. Symptoms have improved. UTI on Admission? No. bd
[2018-07-19] MEDS ORDERED: IPRATROPIUM BROM 0.5MG/2.5ML NEB PRN (08:10)
[2018-07-19] MEDS ORDERED: SODIUM CHLORIDE 0.9% 10ML INJ IV PRN (08:10)
[2018-07-19] MEDS ORDERED: ONDANSETRON 4 MG/2 ML VIAL IV PRN (08:10)
[2018-07-19] MEDS ORDERED: ALBUTEROL 2.5 MG/3 ML NEB SOL NEB PRN (08:10)
[2018-07-19] MEDS ORDERED: ACETAMINOPHEN 500 MG TAB PO PRN (08:10)
[2018-07-19] MEDS ORDERED: HYDRALAZINE HCL 20 MG/ML VIAL IV PRN (08:10)
[2018-07-19] MEDS: Levofloxacin 750mg IV 750 MG/150 ML BAG IV SCH (08:35)
[2018-07-19] MEDS ORDERED: Levofloxacin 750mg IV 750 MG/150 ML BAG IV ONE (08:37)
--- NOTE | 2018-07-19 08:46 | RAD REPORT ---
EXAM DESCRIPTION: RAD - Chest Single View - 07/19/2018 6:54 am CLINICAL HISTORY: Difficulty breathing, COPD, hypertension and smoking history COMPARISON: February 2018 TECHNIQUE: AP portable chest image was obtained 0641 hours . FINDINGS: No large mass or consolidations seen. Failure or volume overload not suspected. There is s ome patchy interstitial and alveolar opacification present in the mid and lower left lung field and i n the right midlung field. In the acute clinical setting patchy bilateral pneumonia would be suspecte d. Lung mass would be unlikely as a bilateral finding new from a 5 month interval examination. Repeat imaging could be performed after medical management to monitor for resolution. Heart and vasculature are normal. No measurable pleural effusion and no pneumothorax. No gross bony abnormality seen. No acute aortic findings suspected. IMPRESSION: Suspected bilateral patchy pneumonia changes left greater than right. Repeat imaging in 4-6 weeks recommended after medical management to monitor for resolution.
[2018-07-19] MEDS: METHYLPREDNISOLONE 125 MG INJ IV SCH ×3 (09:00→21:38)
--- NOTE | 2018-07-19 09:04 | RAD REPORT ---
EXAM DESCRIPTION: CT - Chest For Pe Angio - 07/19/2018 8:52 am CLINICAL HISTORY: Dyspnea, shortness of breath COMPARISON: Chest film same date, CT chest January 2018 TECHNIQUE: Dynamically enhanced 3 mm thick images of the chest were obtained during administration o f approximately 150mL Isovue 370 IV contrast. Coronal and oblique MIP reconstruction images were gene rated and reviewed. Exam utilizes a protocol to evaluate the pulmonary arterial tree. All CT scans are performed using dose optimization technique as appropriate and may include automated exposure control or mA/KV adjustment according to patient size. FINDINGS: No pulmonary emboli are identified. The aorta as imaged shows no acute or suspicious finding. No pericardial thickening or effusion. In the inferior aspect right upper lobe near the minor fissure there is a 2.5 x 3.0 centimeter area o f clustered airspace nodularity. This is the correlate to the chest film finding. Additional 2 centim eter area of airspace nodularity is seen in the right lower lobe near the major fissure. No right-kai ed pleural effusion, pleural thickening or pneumothorax. In the left lung field there are numerous areas of clustered airspace nodularity scattered in the low er left upper lobe and clustered near the hilum. There are numerous areas of airspace nodularity in t he left infrahilar and inferior aspect of the left lower lobe. These of the correlates to the left-si de chest film finding. No left-sided pleural effusion, pleural thickening or pneumothorax. No mediastinal or hilar suspicious masses. No chest wall masses or abnormal axillary lymphadenopathy. Left greater than right gynecomastia changes relatively small. Limited upper abdomen imaging shows prominent fatty infiltration of the liver. IMPRESSION: No pulmonary emboli identified. Prominent left-side and smaller right-side clustered airspace nodularity most likely pneumonia. No cavitation or other emergent finding.Pattern is somewhat atypical for pneumonia. A septic emboli p rocess cannot be excluded.
--- NOTE | 2018-07-19 11:01 | P.HP ---
Certification for Inpatient Patient admitted to: Inpatient With expected LOS: >2 Midnights Patient will require the following post-hospital care: None Practitioner: I am a practitioner with admitting privileges, knowledge of patient current condition, hospital course, and medical plan of care. Services: Services provided to patient in accordance with Admission requirements found in Title 42 Section 412.3 of the Code of Federal Regulations Patient History Date of Service: 07/19/18 Primary Care Provider: Dr. Michaels; Pulmonary-Dr. Martinez Reason for admission: Shortness of breath History of Present Illness: 48-year-old male presented emergency room with increasing shortness of breath. Patient with history of COPD, alcohol abuse, tobacco abuse and hypertension. Patient presented with increasing shortness of breath. This started today. Patient denied any significant chest pain. Some cough and congestion noted. No significant fevers noted. He came to the ER for further evaluation. In the ER patient was found to be hypoxic and tachypneic. Blood pressure 138/97 , heart rate in the 130s. He was tachypneic around 25-30. Patient was placed on BiPAP in the emergency room. Initial ABG showed a pH of 7.4 with a pCO2 of 45 and a PO2 143. White count 16.0. Hemoglobin 16. Sodium 138, potassium 3.8. Glucose 119. AST of 43, ALT is 69. Alcohol elevated at 69. X-ray showed bilateral pneumonia. CT showed showed opacities to the left and and right lower lobe suspicious for pneumonia. Pulmonary embolism was not likely. Patient was admitted for further treatment. When I saw the patient ER, patient was on BiPAP. Mild distress noted but stable. Patient reports a history of COPD, alcohol abuse, tobacco abuse and hypertension. Patient reports compliant with his medication. He has had COPD exacerbations in the past. Patient drinks about 8-12 beers a day. He smokes regularly. He does not plan to quit. He is seen by pulmonology as an outpatient. 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 - Family History Family History: Reviewed- Non-Contributory - Social History Smoking Status: Heavy Tobacco smoker (>10 cigarettes/day) Counseled patient to stop smoking for: less than 10 minutes Smoking therapy provided: Yes Patient receptive to therapy: No Alcohol use: Yes CD- Drugs: No Caffeine use: Yes Place of Residence: Home Review of Systems General: Weakness, Malaise, As per HPI Eyes: Unremarkable ENT: Nose Congestion, As per HPI Respiratory: Shortness of Breath, SOB with Excertion, Wheezing, As per HPI Cardiovascular: Paroxysmal Noc. Dyspnea, As per HPI Gastrointestinal: Unremarkable Genitourinary: Unremarkable Musculoskeletal: Unremarkable Integumentary: Unremarkable Neurological: As per HPI Lymphatics: Unremarkable Physical Examination - Vital Signs Temperature: 98.4 F Blood Pressure: 152/90 Pulse: 125 Respirations: 20 - Physical Exam General: Alert, Oriented x3, Cooperative, Mild distress, Other (Patient with mild distress on BiPAP.) HEENT: Atraumatic, Normocephalic, PERRLA, Mucous membr. moist/pink Neck: Supple, No Thyromegaly Respiratory: Crackles/rales (Bilateral to the bases), Expiratory wheezes ( Bilateral) Cardiovascular: Abnormal pulses (Sinus tachycardia) Gastrointestinal: Normal bowel sounds, Soft and benign, Non-distended, No tenderness, No masses, No rebound, No guarding Musculoskeletal: No erythema, No tenderness, No warmth Integumentary: No tenderness/swelling, No erythema, No warmth, No cyanosis Neurological: Normal speech, Normal strength at 5/5 x4 extr, Normal tone, Normal affect - Studies Laboratory Data (last 24 hrs) 07/19/18 06:30: PT 9.8, INR 0.83, APTT 29.8 07/19/18 06:30: WBC 16.0 H, Hgb 16.1, Hct 46.5, Plt Count 241 07/19/18 06:30: Sodium 138, Potassium 3.8, BUN 12, Creatinine 0.60, Glucose 119 H, Magnesium 2.0, Total Bilirubin 0.5, AST 43 H, ALT 61, Alkaline Phosphatase 101 Assessment and Plan - Plan Impression: Dyspnea secondary to acute on chronic respiratory failure related to COPD exacerbation with noted hypoxia, hypercapnia and tachycardia. Bilateral lower lobe pneumonia with leukocytosis Hypertension, uncontrolled Alcohol abuse, alcohol level elevated, drinks 8-12 beers daily Tobacco abuse Chronic pain with neuropathy Plan: Patient admitted for acute on chronic respiratory failure secondary to COPD exacerbation with bilateral pneumonia. Patient started on IV Levaquin. Will continue with COPD treatment including IV steroids and medication. Will wean off BiPAP. Pulmonology consulted to further evaluate and assess. For his hypertension will start medication. Medications may need to be adjusted. For his alcohol abuse, will monitor electrolytes closely. Will start banana bag IV. Will need to monitor for alcohol withdrawal. Tobacco cessation addressed in detail. Patient does not appear to be planning for cessation therapy. Will continue monitor electrolytes. For his chronic pain with neuropathy patient takes gabapentin. Will need to obtain home medication and restart. I will turn the service over to Dr. Frances tomorrow. I will go over the plan of care with her. Anticipate discharge in the next 2-4 days. Discharge Plan: Home Plan to discharge in: Greater than 2 days - Advance Directives Does patient have a Living Will: No Does patient have a Durable POA for Healthcare: No - Code Status/Comfort Care Code Status Assessed: Yes (Patient full code.) Time Spent Managing Pts Care (In Minutes): 55
[2018-07-19] MEDS ORDERED: POTASSIUM 25 MEQ EFFERV TAB PO ONE (11:02)
[2018-07-19] MEDS ORDERED: LORazepam 2 MG/ML VIAL IV PRN (11:08)
[2018-07-19 11:13] VITALS: BMI 28.3
[2018-07-19] MEDS: ENOXAPARIN 40 MG/0.4 ML SQ SCH (11:53)
[2018-07-19] MEDS: PANTOPRAZOLE 40 MG INJ IVP SCH (11:54)
[2018-07-19] MEDS: NICOTINE 21 MG/PAT TD SCH (11:54)
[2018-07-19] MEDS: FOLIC ACID 1 MG, MULTIVITAMINS INJ 10 ML, THIAMINE HCL 100 MG in NA CHLORIDE 0.9% 1,000 ML IV SCH (11:55)
[2018-07-19] MEDS: NA CHLORIDE 0.9% 1,000 ML IV SCH ×2 (11:55→21:39)
[2018-07-19 12:29] LABS: Urine Appearance CLEAR; Urine Bilirubin NEGATIVE (NEG); Urine Blood NEGATIVE (NEG); Urine Color YELLOW; Urine Glucose 2+ (NEG); Urine Protein NEGATIVE (NEG); Urine Specific Gravity >=1.030 (1.005-1.030); Urine Urobilinogen 0.2 mg/dL (0.2-1.0)
[2018-07-19 12:48] LABS: Urine Microscopic Reflex NO UMIC
[2018-07-19] MEDS: ARFORMOTEROL TARTRATE 15 MCG/2 ML VIAL.NEB NEB SCH (20:19)
[2018-07-19] MEDS ORDERED: TEMAZEPAM 15 MG CAP PO PRN (20:54)
[2018-07-20] MEDS: NA CHLORIDE 0.9% 1,000 ML IV SCH (04:51)
[2018-07-20 05:47] LABS: Absolute Lymphocytes (CBC) 0.8 K/uL (0.7-4.9); Absolute Monocytes 0.4 K/uL (0.1-1.3); Absolute Neutrophil 7.3 K/uL (1.8-8.0); BUN Blood Urea Nitrogen 11 mg/dL (7-18); Basophils % 0.3 % (0-1.3); Bicarbonate 28 mmol/L (21-32); Glucose Level 128 mg/dL (74-106); Hematocrit 41.6 % (39.6-49.0); MCH 35.1 pg (27.0-35.0); MPV 7.4 fL (7.6-11.3); Magnesium 2.6 mg/dL (1.8-2.4); Monocytes % 4.4 % (3.3-12.3); Potassium 3.8 mmol/L (3.5-5.1); Sodium Level 138 mmol/L (136-145)
[2018-07-20 06:35] LABS: Blood Morphology Comment NOT SEEN (NOT SEEN); Platelet Estimate ADEQ
[2018-07-20] MEDS ORDERED: POTASSIUM CL SA 10 MEQ TAB PO ONE (07:15)
[2018-07-20] MEDS: ARFORMOTEROL TARTRATE 15 MCG/2 ML VIAL.NEB NEB SCH (07:43)
--- NOTE | 2018-07-20 07:55 | ECHO ---
HEIGHT: 5 ft 4 in WEIGHT: 165 lb 1.6 oz DATE OF STUDY: 07/19/[address]: Sotero Leigh DO 2-DIMENSIONAL: YES M.MODE: YES DOPPLER: YES COLOR FLOW: YES TDS: PORTABLE: DEFINITY: BUBBLE STUDY: DIAGNOSIS: DYSPNEA, EVALUATE FOR CONGESTIVE HEART FAILURE/ CORNARY ARTERY DISEASE, PRESENTS WITH CHRONIC OBSTRUCTIVE PULMONARY DISEASE CARDIAC HISTORY: CATHERIZATION: NO SURGERY: NO PROSTHETIC VALVE: NO PACEMAKER: NO MEASUREMENTS (cm) DIASTOLIC (NORMALS) SYSTOLIC (NORMALS) IVSd 0.9 (0.6-1.2) LA Diam 3.6 (1.9-4.0) LVEF 57% LVIDd 4.6 (3.5-5.7) LVIDs 3.2 (2.0-3.5) %FS 30% LVPWd 1.0 (0.6-1.2) Ao Diam 2.5 (2.0-3.7) 2 DIMENSIONAL ASSESSMENT: RIGHT ATRIUM: NORMAL LEFT ATRIUM: NORMAL RIGHT VENTRICLE: NORMAL LEFT VENTRICLE: NORMAL TRICUSPID VALVE: NORMAL MITRAL VALVE: NORMAL PULMONIC VALVE: NORMAL AORTIC VALVE: NORMAL PERICARDIAL EFFUSION: NONE AORTIC ROOT: NORMAL LEFT VENTRICULAR WALL MOTION: NORMAL DOPPLER/COLOR FLOW: NORMAL COMMENTS: NORMAL 2-DIMENSIONAL ECHOCARDIOGRAM WITH DOPPLER. NO WALL MOTION ABNORMALITY. NO EFFUSION. TECHNOLOGIST: DANELLE METZGER
--- NOTE | 2018-07-20 08:58 | RAD REPORT ---
EXAM DESCRIPTION: RAD - Chest Pa And Lat (2 Views) - 07/20/2018 6:44 am CLINICAL HISTORY: COPD. Chest pain. COMPARISON: Chest Single View dated 07/19/2018; Chest Single View dated 02/24/2018; Chest Single View dated 02/10/2018; Chest Single View dated 02/09/2018; Chest For Pe Angio dated 07/19/2018 FINDINGS: Lungs are hyperexpanded with mild parahilar linear opacities, appearing mildly improved si nce comparative study. The heart is normal in size. No displaced fractures. IMPRESSION: Mild improvement in lung aeration since comparative study.
[2018-07-20] MEDS: PANTOPRAZOLE 40 MG INJ IVP SCH (09:10)
[2018-07-20] MEDS: ENOXAPARIN 40 MG/0.4 ML SQ SCH (09:10)
[2018-07-20] MEDS: NICOTINE 21 MG/PAT TD SCH (09:10)
[2018-07-20] MEDS: Levofloxacin 750mg IV 750 MG/150 ML BAG IV SCH (09:10)
[2018-07-20] MEDS: FOLIC ACID 1 MG, MULTIVITAMINS INJ 10 ML, THIAMINE HCL 100 MG in NA CHLORIDE 0.9% 1,000 ML IV SCH (09:10)
[2018-07-20] MEDS: METHYLPREDNISOLONE 125 MG INJ IV SCH (09:11)
[2018-07-20 10:27] VITALS: O2SAT 92
[2018-07-20] MEDS ORDERED: HOME MED 1 EA UNK (Budesonide/Formoterol Fumarate [Symbicort 160-4.5 Mcg Inhaler] 1 PUFF) IH PRN (10:42)
[2018-07-20] MEDS ORDERED: GABAPENTIN 100 MG CAP PO PRN (10:42)
[2018-07-20 11:47] VITALS: BP 153/87; TEMP 98.7
--- NOTE | 2018-07-20 11:53 | P.CNS ---
Date of Consult: 07/20/18 Primary Care Provider: Dr. Michaels; Pulmonary-Dr. Martinez Chief Complaint: Shortness of breath History of Present Illness: Patient is 48 years of age well known to me with a history of COPD became acutely short of breath admitted with a diagnosis of exacerbation of underlying COPD as also having some cough denies any fever chills or chest pain he is feeling a lot better now patient is compliant with his medications Allergies Lisinopril Adverse Reaction (Mild, Uncoded 02/11/18 13:05) Shortness of breath Home Medications: Albuterol Neb [Proventil 0.083% Neb Soln] 1 vial IH Q6H PRN 07/19/18 Amlodipine [Norvasc*] 1 tab PO BEDTIME 07/19/18 Budesonide/Formoterol Fumarate [Symbicort 160-4.5 Mcg Inhaler] 1 puff IH DAILY PRN 07/19/18 Fluticasone Propionate [Flonase Allergy Relief] 1 puff [place] DAILY 07/19/18 Gabapentin [Neurontin*] 1 - 3 cap PO BID PRN 07/19/18 Thiamine Mononitrate [Vitamin B-1] 1 tab PO BID 07/19/18 Tiotropium [place] [Spiriva Respimat] 1 puff IH DAILY 07/19/18 predniSONE [Deltasone*] 1 tab PO DAILY 07/19/18 - Past Medical/Surgical History Diabetic: No -: Hypertension -: COPD -: Tobacco abuse -: Alcohol abuse -: GERD -: Obesity, BMI 30.9 -: 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 - Family History Mother Medical History: Diabetes, Cancer Notes: colon cancer Father Medical History: Lung disease - Social History Smoking Status: Current every day smoker Alcohol use: Yes CD- Drugs: No Caffeine use: Yes Place of Residence: Home Review of Systems 10-point ROS is otherwise unremarkable Physical Examination Temp Pulse Resp BP Pulse Ox 98.7 F 64 18 153/87 H 99 07/20/18 11:47 07/20/18 11:47 07/20/18 11:47 07/20/18 11:47 07/20/18 11:47 General: Alert, In no apparent distress HEENT: Atraumatic Neck: Supple Respiratory: Expiratory wheezes Cardiovascular: No edema, Regular rate/rhythm Gastrointestinal: Normal bowel sounds, Soft and benign - Problems (1) Pneumonia of both lower lobes Onset Date: 07/20/18 Current Visit: Yes Status: Acute Plan: Patient is 48 years of age with a history of COPD admitted with bilateral pneumonia does have infiltrates poor prominent on the CT scan is white count is now normal vital signs are stable is doing much better patient can be discharged home resume his bronchodilators at 10 mg twice a day of prednisone and levofloxacin to follow up with me in 2 weeks room-air pulse ox labs reviewed was mildly hypercapnic white count is now normal patient was recently prescribed Symbicort by me normal echocardiogram sputum cultures pending stable to be discharged Qualifiers: Pneumonia type: due to unspecified organism Qualified Code(s): J18.1 - Lobar pneumonia, unspecified organism
--- NOTE | 2018-07-20 15:47 | PN ---
Date of Progress Note: 07/20/2018 Subjective: The patient seen and examined. Chart reviewed and case discussed with RN. The patient states his breathing is better. Also having some cough and some congestion. The patient is no longe r on BiPAP, so currently on nasal cannula. Encouraged to take deep breaths and sit up in chair. We will wean off oxygen. Review of Systems: Negative except as above. Medications: Reviewed. Physical Examination: Vital Signs: Temperature 98, heart rate 77, blood pressure 152/82, respirations 18, O2 96% on 2 L vi a nasal cannula. General: Awake, alert, oriented x3. Some mild respiratory distress. Appears older than stated age. CV: S1, S2. No murmurs. Peripheral pulses present. Respiratory: Diminished breath sounds, otherwise some mild wheezing. No stridor. The patient is no t tachypneic. Gastrointestinal: Abdomen is soft, nontender, nondistended. Positive bowel sounds. Extremities: No clubbing, cyanosis, or edema. Neurologic: Nonfocal. Laboratory Data: Sodium 138, potassium 3.8, chloride 102, CO2 28, BUN 11, creatinine 0.5, glucose 12 8, calcium 8.7, magnesium 2.6. WBC 8.4, H and H 14.7, 41.6, platelets 180, neutrophils 86%. Blood c ultures, no growth to date. Sputum culture is pending. Echocardiogram shows EF 57%. Normal echo. No wall motion abnormality. No effusion. Chest x-ray personally reviewed, shows mild improvement in lung aeration since comparative studies. Assessment And Plan: 1.A 48-year-old male with shortness of breath with hypoxia secondary to acute on chronic respiratory failure and chronic obstructive pulmonary disease exacerbation. 2.Acute on chronic respiratory failure. 3.Acute chronic obstructive pulmonary disease exacerbation. The patient has some hypoxia and hyperc apnia. Continue with steroids and breathing treatments. The patient counseled to stop smoking. He voiced understanding. 4.Bilateral lower lobe pneumonia, improving. Chest x-ray shows improvement, personally reviewed. 5.Essential hypertension, not well controlled. Continue with p.r.n. medications. 6.Alcohol dependence. Drinks about 8-12 beers daily. We will continue with Ativan p.r.n. and elham ine. Alcohol level was elevated at 69. 7.Nicotine dependence with cigarette smoking, counseled. 8.Chronic pain with neuropathy. Continue gabapentin. Plan: Follow up on cultures, negative to date. Wean steroids, will likely discharge in a.m. if cont inues to improve. Check room air sats with and without exertion. /LOGAN Voice ID: [id number] Report ID: [id number]
[2018-07-20] MEDS ORDERED: predniSONE 10 MG TAB PO SCH (21:00)
[2018-07-20] MEDS ORDERED: THIAMINE HCL 100 MG TABLET PO SCH (21:00)
[2018-07-20] MEDS ORDERED: THIAMINE MONONITRATE PO SCH (21:00)
[2018-07-20] MEDS ORDERED: AMLODIPINE 10 MG TAB PO SCH (21:00)
--- NOTE | 2018-07-21 05:32 | DS ---
Date of Discharge: 07/20/2018 Consultants: Dr. Martinez, Pulmonology. Discharge Diagnoses: 1.Shortness of breath. 2.Acute on chronic respiratory failure with hypoxia. 3.Chronic obstructive pulmonary disease with acute exacerbation. 4.Bilateral lower lobe pneumonia. 5.Essential hypertension. 6.Alcohol dependence. 7.Nicotine dependence. 8.Chronic pain with neuropathy. Hospital Course: The patient is a 48-year-old male, has significant history of alcohol and tobacco u se, COPD, comes in with shortness of breath. The patient was admitted to the hospital for COPD exace rbation. His chest x-ray and CT angio showed bilateral pneumonia. No PE was seen. The patient was initially on BiPAP. Due to his shortness of breath, he was hypercapnic and hypoxic. The patient was seen by Dr. Martinez with Pulmonology, started on IV steroids and nebulizer treatments. The patient had significant improvement in his condition. Echocardiogram was also done, which showed EF 57%. N o wall motion abnormality. The patient was then able to be weaned off oxygen. He was then cleared f or discharge from Pulmonology standpoint. Repeat chest x-ray showed improvement. His symptoms were remarkably better. He did not have any further desaturations. He was able to ambulate without any d yspnea. The patient was counseled extensively regarding smoking cessation and alcohol cessation, voi devon understanding. Discharge Condition: Stable. Activity: No strenuous activity for the next few days. Diet: Heart healthy. Followup: Follow up with primary care physician in 2 to 3 days. Follow up with lead refinery supervisor, Dr. Rosamaria mayer in 2 weeks. Return to ER for worsening condition. Medications: As per medication reconciliation list. Finish up course of Levaquin and prednisone tap er and then resume home dose of prednisone. Physical Examination Findings: Please see progress note dictated on day of discharge. Total time spent discharging the patient was 32 minutes. /LOGAN Voice ID: [id number] Report ID: [id number]
[2018-07-21] MEDS ORDERED: [UNRECOGNIZED DRUG - REMARK] NAS SCH (09:00)
[2018-07-21] MEDS ORDERED: HOME MED 1 EA UNK (Tiotropium Bromide [Spiriva Respimat] 1 PUFF) IH SCH (09:00)
[2018-07-21] MEDS ORDERED: levoFLOXacin 500 MG TAB PO SCH (09:00)
== END 2018-07-20 17:42 | disposition home or self-care (01) | DRG 190 ==
LOC: ER 05:55 → ERHOLD 08:10 → 2ND 09:42
PROVIDERS: ADMIT Family Medicine; ATTEND Family Medicine
PROC: 5A09357 Assistance with Respiratory Ventilation, Less than 24 Consecutive Hours, Continuous Positive Airway Pressure (ICD-10-PCS; principal; 2018-07-19)
DX: J44.0 Chronic obstructive pulmonary disease with (acute) lower respiratory infection (principal); J18.9 Pneumonia, unspecified organism; J96.21 Acute and chronic respiratory failure with hypoxia; J44.1 Chronic obstructive pulmonary disease with (acute) exacerbation; I10 Essential (primary) hypertension; F10.20 Alcohol dependence, uncomplicated; G89.29 Other chronic pain; G62.9 Polyneuropathy, unspecified; F17.210 Nicotine dependence, cigarettes, uncomplicated
CPT/HCPCS: 36415; 71045; 71046; 71275; 80048; 80076; 80320; 81003; 82550; 82553; 82805; 83605; 83735; 83880; 84145; 84484; 85025; 85610; 85730; 87040; 93005; 93306; 94640; 94660; 94760; 99285; C9113; J1650; J2930; J3411; J3475; J7030; J7605; Q9967

== ENCOUNTER 2018-09-06 09:36 | Observation (INO) | payer SELFPAY ==
[2018-09-06] MEDS ORDERED: NA CHLORIDE 0.9% 1,000 ML ONE (10:17)
[2018-09-06] MEDS ORDERED: LEVALBUTEROL 1.25 MG/3 ML NEB ONE (10:17)
[2018-09-06] MEDS ORDERED: METHYLPREDNISOLONE 125 MG INJ ONE (10:17)
[2018-09-06] MEDS ORDERED: LORazepam 2 MG/ML VIAL ONE (10:17)
[2018-09-06 10:41] LABS: Absolute Lymphocytes (CBC) 0.9 K/uL (0.7-4.9); Absolute Monocytes 0.4 K/uL (0.1-1.3); Absolute Neutrophil 5.1 K/uL (1.8-8.0); Basophils % 0.6 % (0-1.3); Eosinophils % 0.2 % (0-4.4); Hematocrit 42.8 % (39.6-49.0); Lymphocytes % 13.7 % (15.3-44.8); MCH 34.6 pg (27.0-35.0); MCV 98.8 fL (80-100); MPV 7.4 fL (7.6-11.3); Monocytes % 5.6 % (3.3-12.3); RBC Red Blood Cell Count 4.33 M/uL (4.33-5.43)
[2018-09-06 10:50] LABS: Protime INR 0.87
--- NOTE | 2018-09-06 11:04 | RAD REPORT ---
EXAM DESCRIPTION: RAD - Chest Single View - 09/06/2018 10:04 am CLINICAL HISTORY: Dyspnea, shortness of breath COMPARISON: July 20 TECHNIQUE: AP portable chest image was obtained 1001 hours . FINDINGS: No consolidation, mass or significant failure finding. Interstitial markings are prominent in the mid and lower lung lozano. This pattern is not substantially different from July imaging . Heart and vasculature are normal. No measurable pleural effusion and no pneumothorax. No acute bony abnormality seen. No acute aortic findings suspected. IMPRESSION: Chronic interstitial pattern is seen. This could potentially mask early interstitial jami ma or infiltrate. No focal mass or consolidation. Significant failure is not suspected.
--- NOTE | 2018-09-06 11:17 | EKG ---
Test Date: 2018-09-06 Test Time: 10:24:07 Education Program Specialist: FREDDIE MEASUREMENT RESULTS: Intervals: Rate: 110 NM: 128 QRSD: 94 QT: 364 QTc: 492 [place]: P: 59 NM: 128 QRS: 78 T: 63 INTERPRETIVE STATEMENTS: Sinus tachycardia Otherwise normal ECG Compared to ECG 07/19/2018 06:12:30 Myocardial infarct finding no longer present Electronically Signed On 09-06-18 11:17:37 CDT by Wilber Ray
[2018-09-06 11:19] LABS: ALT/SGPT 50 U/L (12-78); AST/SGOT 40 U/L (15-37); Alkaline Phosphatase 89 U/L (45-117); BUN Blood Urea Nitrogen 9 mg/dL (7-18); Bicarbonate 27 mmol/L (21-32); Bilirubin Direct 0.2 mg/dL (0-0.2); Bilirubin Total 0.5 mg/dL (0.2-1.0); Glucose Level 144 mg/dL (74-106); Magnesium 2.1 mg/dL (1.8-2.4); NT PRO-BNP 60 pg/mL (<125); Potassium 3.8 mmol/L (3.5-5.1); Protein, Total 8.1 g/dL (6.4-8.2); Sodium Level 133 mmol/L (136-145); Troponin (Emerg Dept Use Only) < 0.02 ng/mL (0.0-0.045)
[2018-09-06] MEDS ORDERED: FOLIC ACID 1 MG, THIAMINE HCL 100 MG, MULTIVITAMINS INJ 10 ML in NA CHLORIDE 0.9% 1,000 ML IV ONE (12:45)
--- NOTE | 2018-09-06 12:49 | EDPHYS ---
Physician Documentation [facility] Name: Randy Briones Age: 48 yrs Sex: Male : 1970 Arrival Date: 09/06/2018 Time: 09:37 Bed 2 Private MD: Adrianna Michaels H ED Physician AnselmoBg HPI: 09/06 10:37 This 48 yrs old Male presents to ER via Wheelchair with complaints of jr8 Shortness Of Breath. 10:37 The patient has shortness of breath at rest. Onset: The symptoms/episode began/occurred jr8 acutely, today. Duration: The symptoms are continuous. The patient's shortness of breath has no apparent modifying factors. Associated signs and symptoms: The patient has no apparent associated signs or symptoms. Severity of symptoms: At their worst the symptoms were moderate in the emergency department the symptoms are unchanged. The patient has experienced similar episodes in the past, several times. The patient has not recently seen a physician. Stated that he has these flare up's of shortness of breath and sensation that his throat closes up . Historical: - Allergies: 09:49 Lisinopril; ph - Home Meds: 10:50 Advair Diskus 250-50 mcg/dose Inhl dsdv 1 puff 2 times per day [Active]; albuterol iw sulfate 2.5 mg /3 mL (0.083 %) Inhl nebu 3 mL 3 times per day [Active]; gabapentin 100 mg Oral cap 3 caps 3 times per day [Active]; montelukast 10 mg Oral tab 1 tab once daily [Active]; Nexium 40 mg Oral cpDR 1 cap 2 times per day [Active]; Norvasc 10 mg Oral tab once daily [Active]; Spiriva with HandiHaler inhalation [Active]; Triamterene-Hydrochlorothiazid Oral once daily [Active]; - PMHx: 09:49 Alcoholism; COPD; Hypertension; ph - PSHx: 09:49 None; ph - Immunization history:: Adult Immunizations up to date. - Social history:: Smoking status: Patient uses tobacco products, smokes one pack cigarettes per day. Patient uses alcohol, claims drinking about a 6 pack/day. drinks heavily on weekends . - Ebola Screening: : Patient negative for fever greater than or equal to 101.5 degrees Fahrenheit, and additional compatible Ebola Virus Disease symptoms Patient denies exposure to infectious person Patient denies travel to an Ebola-affected area in the 21 days before illness onset No symptoms or risks identified at this time. ROS: 10:37 Eyes: Negative for injury, pain, redness, and discharge, ENT: Negative for injury, jr8 pain, and discharge, Neck: Negative for injury, pain, and swelling, Cardiovascular: Negative for chest pain, palpitations, and edema, Abdomen/GI: Negative for abdominal pain, nausea, vomiting, diarrhea, and constipation, Back: Negative for injury and pain, MS/Extremity: Negative for injury and deformity, Skin: Negative for injury, rash, and discoloration, Neuro: Negative for headache, weakness, numbness, tingling, and seizure. 10:37 Respiratory: Positive for dyspnea on exertion, shortness of breath. Exam: 10:37 Eyes: Pupils equal round and reactive to light, extra-ocular motions intact. Lids and jr8 lashes normal. Conjunctiva and sclera are non-icteric and not injected. Cornea within normal limits. Periorbital areas with no swelling, redness, or edema. ENT: Nares patent. No nasal discharge, no septal abnormalities noted. Tympanic membranes are normal and external auditory canals are clear. Oropharynx with no redness, swelling, or masses, exudates, or evidence of obstruction, uvula midline. Mucous membranes moist. Neck: Trachea midline, no thyromegaly or masses palpated, and no cervical lymphadenopathy. Supple, full range of motion without nuchal rigidity, or vertebral point tenderness. No Meningismus. Abdomen/GI: Soft, non-tender, with normal bowel sounds. No distension or tympany. No guarding or rebound. No evidence of tenderness throughout. Back: No spinal tenderness. No costovertebral tenderness. Full range of motion. Skin: Warm, dry with normal turgor. Normal color with no rashes, no lesions, and no evidence of cellulitis. MS/ Extremity: Pulses equal, no cyanosis. Neurovascular intact. Full, normal range of motion. Neuro: Awake and alert, GCS 15, oriented to person, place, time, and situation. Cranial nerves II-XII grossly intact. Motor strength 5/5 in all extremities. Sensory grossly intact. Cerebellar exam normal. Normal gait. 10:37 Constitutional: The patient appears alert, awake, in obvious distress, uncomfortable. 10:37 Cardiovascular: Rate: tachycardic, Rhythm: regular, Pulses: Pulses are 2+ in right radial artery and left radial artery. Heart sounds: normal, Edema: 1+ edema to level of left midcalf, left ankle, right midcalf and right ankle. 10:37 Respiratory: mild respiratory distress is noted, Respirations: labored breathing, tachypnea, Breath sounds: decreased breath sounds, that are mild, diffuse. Vital Signs: 09:48 BP 166 / 111; Pulse 125; Resp 32; Temp 98.1; Pulse Ox 96% on R/A; Weight 79.38 kg; ph Height 5 ft. 4 in. (162.56 cm); 10:43 BP 122 / 54; Pulse 126; Resp 28 S; Pulse Ox 96% on 3 lpm NC; iw 11:54 BP 157 / 98; Pulse 105; Resp 18 S; Pulse Ox 97% on 3 lpm NC; iw 13:16 BP 173 / 83; Pulse 88; Resp 16; Pulse Ox 95% on 2 lpm NC; Pain 0/10; iw 14:13 BP 147 / 93; Pulse 98; Resp 20 S; Pulse Ox 97% on 2 lpm NC; iw 09:48 Body Mass Index 30.04 (79.38 kg, 162.56 cm) ph MDM: 09:50 Patient medically screened. jr8 12:32 Data reviewed: vital signs, nurses notes, lab test result(s), EKG, radiologic studies, jr8 plain films. Data interpreted: Pulse oximetry: on room air is 97 %. Interpretation: normal. Counseling: I had a detailed discussion with the patient and/or guardian regarding: the historical points, exam findings, and any diagnostic results supporting the discharge/admit diagnosis, lab results, radiology results, the need for further work-up and treatment in the hospital. Physician consultation: Ammy Frances MD was called at 12:32, was contacted at 12:32, regarding admission, to the telemetry unit. consult, patient's condition, and will see patient. ED course: Patient while at rest is still very tachycardic and tremulous. Asked about recent alcohol or chronic alcoholism. Patient stated that he is a heavy drinker. Last drink about 24 hours ago. Suspected COPD exacerbation with acute alcohol withdrawal . 09/06 09:50 Order name: Basic Metabolic Panel; Complete Time: 11:59 09/06 09:50 Order name: CBC with Diff; Complete Time: 10:47 09/06 09:50 Order name: LFT's; Complete Time: 11:59 09/06 09:50 Order name: Magnesium; Complete Time: 11:59 09/06 09:50 Order name: NT PRO-BNP; Complete Time: 11:59 09/06 09:50 Order name: PT-INR; Complete Time: 11:06 09/06 09:50 Order name: Troponin (emerg Dept Use Only); Complete Time: 11:59 09/06 09:50 Order name: XRAY Chest (1 view); Complete Time: 11:09/06 10:02 Order name: ETOH Level; Complete Time: 12:25 09/06 09:50 Order name: EKG; Complete Time: 09:51 09/06 09:50 Order name: Cardiac monitoring; Complete Time: 14:13 09/06 09:50 Order name: EKG - Nurse/Tech; Complete Time: 12:09 09/06 09:50 Order name: IV Saline Lock; Complete Time: 12:09 09/06 09:50 Order name: Labs collected and sent; Complete Time: 12:09 09/06 09:50 Order name: O2 Per Protocol; Complete Time: 12:09 09/06 09:50 Order name: O2 Sat Monitoring; Complete Time: 12:09 09/06 10:12 Order name: Labs - recollect needed; Complete Time: 10:30 ss Administered Medications: 10:25 Drug: Ativan 1 mg Route: IVP; Site: right antecubital; iw 14:35 Follow up: Response: No adverse reaction; Marked relief of symptoms iw 10:25 Drug: SOLU-Medrol 125 mg Route: IVP; Site: right antecubital; iw 12:00 Follow up: Response: No adverse reaction iw : Drug: Xopenex (3) 1.25 mg Route: Inhalation; iw 10:30 Drug: NS 0.9% 1000 ml Route: IV; Rate: 1000 ml; Site: right antecubital; iw 13:30 Follow up: IV Status: Completed infusion iw 12:49 Drug: Ativan 1 mg Route: IVP; Site: right antecubital; iw 14:34 Follow up: Response: No adverse reaction; Marked relief of symptoms; Anxiety decreased iw 13:28 Drug: Banana Bag - (NS 0.9% 1000 ml, foLIC Acid 1 mg, Thiamine 100 mg, Multivitamin 1 iw amp) Route: IV; Rate: calculated rate; Site: right antecubital; 14:35 Follow up: IV Status: Infusion continued upon admission iw Disposition: 16:13 Co-signature as Attending Physician, Bg Briones MD I agree with the assessment and akash plan of care. Disposition: 09/06/18 12:49 Hospitalization ordered by Ara Altamirano for Observation. Preliminary diagnosis are Chronic obstructive pulmonary disease with (acute) exacerbation, Alcohol dependence with withdrawal. - Bed requested for Telemetry/MedSurg (observation). - Status is Observation. iw - Condition is Stable. - Problem is new. - Symptoms have improved. UTI on Admission? No Signatures: Dispatcher [employer] Chelsey Michaels RN RN dw Anderson, Corey, MD MD cha Williams, Irene, RN RN Kiley Cuello RN RN Jarvis Mcelroy PA PA jr8 Angle Hoover RN RN ph Corrections: (The following items were deleted from the chart) 14:04 12:49 Hospitalization Ordered by Ara Altamirano MD for Observation. Preliminary diagnosis dw is Chronic obstructive pulmonary disease with (acute) exacerbation; Alcohol dependence with withdrawal. Bed requested for Telemetry/MedSurg (observation). Status is Observation. Condition is Stable. Problem is new. Symptoms have improved. UTI on Admission? No. jr8 14:36 14:04 09/06/2018 12:49 Hospitalization Ordered by Ara Altamirano MD for Observation. iw Preliminary diagnosis is Chronic obstructive pulmonary disease with (acute) exacerbation; Alcohol dependence with withdrawal. Bed requested for Telemetry/MedSurg (observation). Status is Observation. Condition is Stable. Problem is new. Symptoms have improved. UTI on Admission? No. dw
--- NOTE | 2018-09-06 12:49 | ER ---
Nurse's Notes [facility] Name: Randy Briones Age: 48 yrs Sex: Male : 1970 Arrival Date: 09/06/2018 Time: 09:37 Bed 2 Private MD: Adrianna Michaels H Diagnosis: Chronic obstructive pulmonary disease with (acute) exacerbation;Alcohol dependence with withdrawal Presentation: 09/06 09:47 Presenting complaint: Patient states: SOB that began this morning and has progressively ph worsened, reports hx of COPD, pt tachypneic in triage w/ Spo2 96% RA, c/o pain in R side and diarrhea, also states that his close feels like it is closing. Transition of care: patient was not received from another setting of care. Onset of symptoms was September 06, 2018. Risk Assessment: Do you want to hurt yourself or someone else? Patient reports no desire to harm self or others. Initial Sepsis Screen: Does the patient meet any 2 criteria? No. Patient's initial sepsis screen is negative. Does the patient have a suspected source of infection? No. Patient's initial sepsis screen is negative. Care prior to arrival: None. 09:47 Method Of Arrival: Wheelchair ph 09:47 Acuity: CANDACE 2 ph Triage Assessment: 10:00 Respiratory: Reports shortness of breath cough that is Onset: The symptoms/episode iw began/occurred this morning, the patient has moderate shortness of breath. 14:14 General: Appears in no apparent distress. Behavior is calm, cooperative. iw Historical: - Allergies: 09:49 Lisinopril; ph - Home Meds: 10:50 Advair Diskus 250-50 mcg/dose Inhl dsdv 1 puff 2 times per day [Active]; albuterol iw sulfate 2.5 mg /3 mL (0.083 %) Inhl nebu 3 mL 3 times per day [Active]; gabapentin 100 mg Oral cap 3 caps 3 times per day [Active]; montelukast 10 mg Oral tab 1 tab once daily [Active]; Nexium 40 mg Oral cpDR 1 cap 2 times per day [Active]; Norvasc 10 mg Oral tab once daily [Active]; Spiriva with HandiHaler inhalation [Active]; Triamterene-Hydrochlorothiazid Oral once daily [Active]; - PMHx: 09:49 Alcoholism; COPD; Hypertension; ph - PSHx: 09:49 None; ph - Immunization history:: Adult Immunizations up to date. - Social history:: Smoking status: Patient uses tobacco products, smokes one pack cigarettes per day. Patient uses alcohol, claims drinking about a 6 pack/day. drinks heavily on weekends . - Ebola Screening: : Patient negative for fever greater than or equal to 101.5 degrees Fahrenheit, and additional compatible Ebola Virus Disease symptoms Patient denies exposure to infectious person Patient denies travel to an Ebola-affected area in the 21 days before illness onset No symptoms or risks identified at this time. Screenin:48 Abuse screen: Denies threats or abuse. Denies injuries from another. Nutritional iw screening: No deficits noted. Tuberculosis screening: No symptoms or risk factors identified. Fall Risk IV access (20 points). Assessment: 09:50 General: Appears uncomfortable, Behavior is agitated, anxious. Pain: Complains of pain iw in right lower quadrant. Neuro: Level of Consciousness is awake, alert, obeys commands, Oriented to person, place, time, situation, Moves all extremities. Full function. Cardiovascular: Heart tones S1 S2 present. Derm: Skin is flushed. Musculoskeletal: Range of motion: intact in all extremities. 10:46 Reassessment: pt having a coughing fit, states he had 3 in a row, pt flushed, iw diaphoretic, appears to be relaxing now, SpO2 at 97% on 3 L NC, pt states he will feel something irritate his throat and that sets off the coughing fit, pt also c/o increasing pain to RLQ. 11:53 Reassessment: Patient appears in no apparent distress at this time. Patient and/or iw family updated on plan of care and expected duration. Pain level reassessed. Patient is alert, oriented x 3, equal unlabored respirations, skin warm/dry/pink. pt still c/o RLQ pain Patient states feeling better. Patient states symptoms have improved. 13:16 Reassessment: Patient appears in no apparent distress at this time. pt appears to be iw sleeping, awakens easily to verbal stimuli, respirations even and unlabored, VSS. 14:14 Respiratory: Airway is patent Respiratory effort is even, unlabored, Breath sounds are iw clear bilaterally. 14:15 Cardiovascular: Rhythm is sinus tachycardia. iw Vital Signs: 09:48 BP 166 / 111; Pulse 125; Resp 32; Temp 98.1; Pulse Ox 96% on R/A; Weight 79.38 kg; ph Height 5 ft. 4 in. (162.56 cm); 10:43 BP 122 / 54; Pulse 126; Resp 28 S; Pulse Ox 96% on 3 lpm NC; iw 11:54 BP 157 / 98; Pulse 105; Resp 18 S; Pulse Ox 97% on 3 lpm NC; iw 13:16 BP 173 / 83; Pulse 88; Resp 16; Pulse Ox 95% on 2 lpm NC; Pain 0/10; iw 14:13 BP 147 / 93; Pulse 98; Resp 20 S; Pulse Ox 97% on 2 lpm NC; iw 09:48 Body Mass Index 30.04 (79.38 kg, 162.56 cm) ph ED Course: 09:37 Patient arrived in ED. as 09:37 Adrianna Michaels DO is Private Physician. as 09:48 Triage completed. ph 09:50 Jarvis Mcelroy PA is PHCP. jr8 09:50 Bg Briones MD is Attending Physician. jr8 09:50 Arm band placed on. iw 09:59 Rebeca Lizama, BRIGETTE is Primary Nurse. iw 10:00 Patient has correct armband on for positive identification. iw 10:02 Initial lab(s) drawn, by me, sent to lab. Inserted saline lock: 20 gauge in right iw antecubital area, using aseptic technique. Blood collected. 10:03 XRAY Chest (1 view) In Process Unspecified. EDMS 10:30 EKG done, by technician helper instrument. reviewed by Jarvis BARRERA. sm3 12:48 Ara Altamirano MD is Hospitalizing Provider. jr8 14:15 No provider procedures requiring assistance completed. Patient admitted, IV remains in iw place. Administered Medications: 10:25 Drug: Ativan 1 mg Route: IVP; Site: right antecubital; iw 14:35 Follow up: Response: No adverse reaction; Marked relief of symptoms iw 10:25 Drug: SOLU-Medrol 125 mg Route: IVP; Site: right antecubital; iw 12:00 Follow up: Response: No adverse reaction iw 10:29 Drug: Xopenex (3) 1.25 mg Route: Inhalation; iw 10:30 Drug: NS 0.9% 1000 ml Route: IV; Rate: 1000 ml; Site: right antecubital; iw 13:30 Follow up: IV Status: Completed infusion iw 12:49 Drug: Ativan 1 mg Route: IVP; Site: right antecubital; iw 14:34 Follow up: Response: No adverse reaction; Marked relief of symptoms; Anxiety decreased iw 13:28 Drug: Banana Bag - (NS 0.9% 1000 ml, foLIC Acid 1 mg, Thiamine 100 mg, Multivitamin 1 iw amp) Route: IV; Rate: calculated rate; Site: right antecubital; 14:35 Follow up: IV Status: Infusion continued upon admission iw Outcome: 12:49 Decision to Hospitalize by Provider. curt 14:36 Admitted to Tele accompanied by tech, via wheelchair, room 406, Report called to cathie apodaca RN 14:36 Condition: good 14:36 Instructed on the need for admit. 14:36 Patient left the ED. Signatures: Dispatcher [employer] Diana Haynes Irene, RN RN Jarvis Mcelroy PA PA jr8 Angle Hoover RN RN Carey Alba [facility]
[2018-09-06] MEDS ORDERED: ACETAMINOPHEN 500 MG TAB PO PRN (14:53)
[2018-09-06] MEDS: ALBUTEROL 2.5 MG/3 ML NEB SOL NEB SCH ×2 (14:53→20:00)
[2018-09-06] MEDS ORDERED: INFLUENZA VACCINE (for 3y+) 0.5 ML DOSE IMVAC ONE (17:00)
[2018-09-06] MEDS: LORazepam 2 MG/ML VIAL IV PRN ×3 (18:18→22:26)
[2018-09-06 20:14] LABS: Urine Appearance CLEAR; Urine Bilirubin NEGATIVE (NEG); Urine Blood NEGATIVE (NEG); Urine Color YELLOW; Urine Glucose TRACE (NEG); Urine Protein NEGATIVE (NEG); Urine Urobilinogen 0.2 mg/dL (0.2-1.0); Urine pH 7.5 (5.0-7.0)
[2018-09-06 21:42] LABS: Urine Microscopic Reflex NO UMIC
[2018-09-07] MEDS: ALBUTEROL 2.5 MG/3 ML NEB SOL NEB SCH ×2 (01:36→08:00)
[2018-09-07 06:25] LABS: Absolute Monocytes 0.6 K/uL (0.1-1.3); Absolute Neutrophil 3.9 K/uL (1.8-8.0); Basophils % 0.5 % (0-1.3); Eosinophils % 0.1 % (0-4.4); Lymphocytes % 18.5 % (15.3-44.8); MCH 34.4 pg (27.0-35.0); MCV 99.5 fL (80-100); MPV 7.8 fL (7.6-11.3); Monocytes % 10.7 % (3.3-12.3); RBC Red Blood Cell Count 4.22 M/uL (4.33-5.43)
[2018-09-07] MEDS: LORazepam 2 MG/ML VIAL IV PRN ×2 (06:36→08:50)
[2018-09-07 06:40] LABS: BUN Blood Urea Nitrogen 12 mg/dL (7-18); Bicarbonate 26 mmol/L (21-32); Glucose Level 103 mg/dL (74-106); Potassium 3.7 mmol/L (3.5-5.1); Sodium Level 139 mmol/L (136-145)
[2018-09-07] MEDS: ENOXAPARIN 40 MG/0.4 ML SQ SCH (08:52)
[2018-09-07] MEDS ORDERED: POTASSIUM CL SA 10 MEQ TAB PO ONE (09:00)
--- NOTE | 2018-09-07 09:30 | P.HP ---
Certification for Inpatient Patient admitted to: Observation With expected LOS: <2 Midnights Patient will require the following post-hospital care: None Practitioner: I am a practitioner with admitting privileges, knowledge of patient current condition, hospital course, and medical plan of care. Services: Services provided to patient in accordance with Admission requirements found in Title 42 Section 412.3 of the Code of Federal Regulations Patient History Date of Service: 09/06/18 Reason for admission: Shortness of breath; h/o of alcohol abuse History of Present Illness: Patient is a 48-year-old gentleman who came into the hospital with difficulty breathing. Patient also has a history of significant alcohol use. He drinks a 6 pack a day and on the weekend he said he can drink up to a 12 pack to a case a day. Patient's respiratory status has been worsening over the last few days. Was coughing and congested. He was taking breathing treatments at home but not improving and came to the hospital for further work-up. He was hypoxic and in severe distress so he was admitted to the hospital for further evaluation. Will continue with steroids and neb treatments. Pulmonary consultation as patient follows up with Dr. Martinez. Allergies Lisinopril Adverse Reaction (Mild, Uncoded 02/11/18 13:05) Shortness of breath Home Medications: Albuterol Neb [Proventil 0.083% Neb Soln] 1 vial IH Q6H PRN 07/19/18 Amlodipine [Norvasc*] 1 tab PO BID 07/19/18 Budesonide/Formoterol Fumarate [Symbicort 160-4.5 Mcg Inhaler] 1 puff IH BID 08/26 Fluticasone Propionate [Flonase Allergy Relief] 1 puff [place] DAILY 07/19/18 Thiamine Mononitrate [Vitamin B-1] 1 tab PO BID 07/19/18 predniSONE [Prednisone*] 20 mg PO DAILY 09/06/18 - Past Medical/Surgical History Has patient received pneumonia vaccine in the past: Yes Diabetic: No -: Hypertension -: COPD -: Tobacco abuse -: Alcohol abuse -: GERD -: Obesity, BMI 30.9 -: 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 - Family History Mother Medical History: Diabetes, Cancer Notes: colon cancer Father Medical History: Lung disease - Social History Smoking Status: Current every day smoker Alcohol use: Yes CD- Drugs: No Caffeine use: Yes Place of Residence: Home Review of Systems 10-point ROS is otherwise unremarkable Physical Examination - Vital Signs Temperature: 98.6 F Blood Pressure: 119/66 Pulse: 74 Respirations: 20 Pulse Ox (%): 97 - Physical Exam General: Alert, In no apparent distress, Oriented x3 HEENT: Atraumatic, PERRLA, Mucous membr. moist/pink, EOMI, Sclerae nonicteric Neck: Supple, 2+ carotid pulse no bruit, No LAD, Without JVD or thyroid abnormality Respiratory: Diminished, Expiratory wheezes, Rhonchi/gurgles Cardiovascular: Regular rate/rhythm, Normal S1 S2, Systolic murmur Gastrointestinal: Normal bowel sounds, Soft and benign, Non-distended, No tenderness Musculoskeletal: No clubbing, No swelling, No tenderness Integumentary: No rashes Neurological: Normal speech, Normal tone, Sensation intact, Cranial nerves 3-12 intact, Normal affect, Other (Tremors) Lymphatics: No axilla or inguinal lymphadenopathy - Studies Laboratory Data (last 24 hrs) 09/06/18 10:20: PT 10.3, INR 0.87 09/06/18 10:20: WBC 6.4, Hgb 15.0, Hct 42.8, Plt Count 191 09/06/18 10:20: Sodium 133 L, Potassium 3.8, BUN 9, Creatinine 0.60, Glucose 144 H, Magnesium 2.1 D, Total Bilirubin 0.5, AST 40 H, ALT 50, Alkaline Phosphatase 89 Assessment & Plan - Problems (Diagnosis) (1) COPD exacerbation Onset Date: 09/07/18 Current Visit: Yes Status: Acute (2) Alcohol abuse Onset Date: 02/11/18 Current Visit: No Status: Acute (3) Alcohol dependence with withdrawal Onset Date: 02/11/18 Current Visit: No Status: Acute Qualifiers: Complication of substance-induced condition: uncomplicated Qualified Code(s ): F10.230 - Alcohol dependence with withdrawal, uncomplicated (4) Dyspnea Onset Date: 07/20/18 Current Visit: No Status: Acute (5) HTN (hypertension) Onset Date: 02/11/18 Current Visit: No Status: Acute Qualifiers: Hypertension type: essential hypertension Qualified Code(s): I10 - Essential (primary) hypertension (6) Hyponatremia Onset Date: 02/11/18 Current Visit: No Status: Acute (7) Hypoxia Onset Date: 07/20/18 Current Visit: No Status: Acute (8) Tobacco abuse Onset Date: 02/11/18 Current Visit: No Status: Acute - Plan Plan: 1. Continue with nebs, steroids, and antibiotics 2. DT prophylaxis. Banana bag and Librium 3. Pulmonary consultation 4. O2 sats at room air 5. Chest x-ray and labs 6. GI and DVT prophylaxis - Advance Directives Does patient have a Living Will: No Does patient have a Durable POA for Healthcare: No - Code Status/Comfort Care Code Status Assessed: Yes Code Status: Full Code Critical Care: No Time Spent Managing PTS Care (In Minutes): 50
[2018-09-07] MEDS: METHYLPREDNISOLONE 40 MG INJ IV SCH ×2 (11:50→18:06)
[2018-09-07] MEDS ORDERED: THIAMINE HCL 100 MG TABLET PO SCH (11:51)
[2018-09-07] MEDS ORDERED: ALBUTEROL 2.5 MG/3 ML NEB SOL NEB PRN (11:51)
[2018-09-07] MEDS: CEFUROXIME 250 MG TAB PO SCH ×2 (11:52→20:56)
--- NOTE | 2018-09-07 11:54 | P.CNS ---
Date of Consult: 09/07/18 Reason for Consult: COPD exacerbation Chief Complaint: Shortness of breath; h/o of alcohol abuse History of Present Illness: Patient is 48 years of age I last saw her in my office on March 02 he has cancel subsequent visits since then was also advised to see ENT due to chronic hoarseness been sick since Thursday complaining of cough congestion shortness of breath and was admitted from the emergency room some interstitial changes on the x-ray patient continues to smoke history of alcohol abuse patient is on Symbicort Allergies Lisinopril Adverse Reaction (Mild, Uncoded 02/11/18 13:05) Shortness of breath Home Medications: Albuterol Neb [Proventil 0.083% Neb Soln] 1 vial IH Q6H PRN 07/19/18 Amlodipine [Norvasc*] 1 tab PO BID 07/19/18 Budesonide/Formoterol Fumarate [Symbicort 160-4.5 Mcg Inhaler] 1 puff IH BID 08/26 Fluticasone Propionate [Flonase Allergy Relief] 1 puff [place] DAILY 07/19/18 Thiamine Mononitrate [Vitamin B-1] 1 tab PO BID 07/19/18 predniSONE [Prednisone*] 20 mg PO DAILY 09/06/18 - Past Medical/Surgical History Diabetic: No -: Hypertension -: COPD -: Tobacco abuse -: Alcohol abuse -: GERD -: Obesity, BMI 30.9 -: 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 - Family History Mother Medical History: Diabetes, Cancer Notes: colon cancer Father Medical History: Lung disease - Social History Smoking Status: Current every day smoker Alcohol use: Yes CD- Drugs: No Caffeine use: Yes Place of Residence: Home Review of Systems General: Weakness Respiratory: Cough, Shortness of Breath Gastrointestinal: Diarrhea (Daddy abdominal discomfort for the past 4 days) Physical Examination Temp Pulse Resp BP Pulse Ox 98.6 F 74 20 119/66 97 09/07/18 09:32 09/07/18 09:32 09/07/18 09:32 09/07/18 09:32 09/07/18 09:32 General: Alert, Oriented x3 Respiratory: Friction rub, Expiratory wheezes Cardiovascular: Regular rate/rhythm Gastrointestinal: Normal bowel sounds, Soft and benign Musculoskeletal: No clubbing, No swelling Integumentary: No rashes, No breakdown - Problems (1) COPD exacerbation Onset Date: 09/07/18 Current Visit: Yes Status: Acute Plan: Patient is 48 years of age admitted with COPD exacerbation he is to continue to drink heavily I have not seen him for the past 6 months patient canceled his visits he is now on disability chest x-ray some interstitial changes labs are unremarkable
[2018-09-07] MEDS ORDERED: LORAZEPAM 1 MG TABLET PO PRN (11:55)
[2018-09-07] MEDS: IPRATROPIUM BROM 0.5MG/2.5ML NEB SCH ×2 (14:01→20:22)
[2018-09-07] MEDS: ARFORMOTEROL TARTRATE 15 MCG/2 ML VIAL.NEB NEB SCH ×2 (14:01→20:22)
--- NOTE | 2018-09-07 20:24 | PN ---
Date of Progress Note: 09/07/2018 The patient was seen and examined. Chart reviewed and case discussed with RN and Dr. Martinez. The patient is being weaned off O2. Still having some shortness of breath and cough. The patient contin ues to have hoarseness which has now become chronic for him. The patient having some shakes due to h is alcohol withdrawal, but no acute delirium tremens. Review of Systems: Negative except as above. Medications: List reviewed. Physical Examination: Vital Signs: Temperature 98.3, heart rate 91, blood pressure 131/82, respirations 20, O2 97% on 2 L via nasal cannula. General: Awake, alert, oriented x3. Obese male. Some mild distress. CV: S1 and S2. Regular rate and rhythm. Peripheral pulses present. Respiratory: Diminished breath sounds and some wheezing heard. No crackles. The patient is slightl y tachypneic. Gastrointestinal: Abdomen is soft, nontender, nondistended. Positive bowel sounds. Obese. No guar ding or rigidity. Bowel sounds positive. Extremities: No clubbing, cyanosis, or edema. Neuro: Nonfocal. Laboratory Data: Sodium 139, potassium 3.7, chloride 103, CO2 26, BUN 12, creatinine 0.4, glucose 10 3, calcium 8.8, phosphorus 4. WBC 5.5, H and H 14.5 and 42, platelets 185. Assessment And Plan: A 48-year-old male with. 1.Acute chronic obstructive pulmonary disease exacerbation. We will continue with nebulizer treatme nts and steroids. The patient has been added on cefuroxime by Dr. Martinez. Appreciate his input. The patient in the process of being weaned off oxygen. We will continue to monitor closely. 2.Acute respiratory distress. The patient requiring supplemental oxygen via nasal cannula and wean off as tolerated secondary to above. 3.Alcohol dependence with acute withdrawal uncomplicated. The patient having some shakes, tachycard ia. We will continue with Ativan p.r.n. 4.Alcohol abuse, counseled. 5.Essential hypertension. Resume home medications as appropriate. 6.Hyponatremia likely secondary to his alcoholism, corrected. We will continue to monitor. 7.Obesity, BMI 30. 8.Gastroesophageal reflux disease without esophagitis. Continue PPI. 9.Hypoxia. The patient requires supplemental oxygen secondary to chronic obstructive pulmonary dise ase. Wean off as tolerated. 10.Nicotine dependence with cigarette smoking, continuous. The patient has been counseled extensive ly. Plan: Continue Ativan p.r.n. Continue multivitamin and DT prophylaxis. Check room air saturations. Likely discharge in the next 24 hours once cleared by Pulmonology. Antibiotics have been adjusted. /LOGAN Voice ID: [id number] Report ID: [id number]
[2018-09-07] MEDS: THIAMINE HCL 100 MG TABLET PO SCH (20:57)
[2018-09-07] MEDS: AMLODIPINE 10 MG TAB PO SCH (20:57)
[2018-09-07] MEDS: HOME MED 1 EA UNK (Budesonide/Formoterol Fumarate [Symbicort 160-4.5 Mcg Inhaler] 1 PUFF) IH SCH (21:00)
[2018-09-08] MEDS: METHYLPREDNISOLONE 40 MG INJ IV SCH ×2 (00:07→10:43)
[2018-09-08 01:26] VITALS: O2SAT 95
[2018-09-08] MEDS: IPRATROPIUM BROM 0.5MG/2.5ML NEB SCH ×2 (02:45→07:33)
[2018-09-08 04:24] LABS: Absolute Lymphocytes (CBC) 0.5 K/uL (0.7-4.9); Absolute Monocytes 0.2 K/uL (0.1-1.3); Absolute Neutrophil 5.1 K/uL (1.8-8.0); Basophils % 0.5 % (0-1.3); Hematocrit 45.2 % (39.6-49.0); Lymphocytes % 9.2 % (15.3-44.8); MCH 34.6 pg (27.0-35.0); MCV 99.6 fL (80-100); MPV 7.4 fL (7.6-11.3); Monocytes % 2.6 % (3.3-12.3); RBC Red Blood Cell Count 4.54 M/uL (4.33-5.43)
[2018-09-08 04:57] LABS: BUN Blood Urea Nitrogen 14 mg/dL (7-18); Bicarbonate 29 mmol/L (21-32); Glucose Level 135 mg/dL (74-106); Sodium Level 134 mmol/L (136-145)
[2018-09-08 06:29] VITALS: TEMP 99
[2018-09-08] MEDS: ARFORMOTEROL TARTRATE 15 MCG/2 ML VIAL.NEB NEB SCH (07:30)
[2018-09-08] MEDS ORDERED: [UNRECOGNIZED DRUG - REMARK] NAS SCH (09:00)
[2018-09-08] MEDS: HOME MED 1 EA UNK (Budesonide/Formoterol Fumarate [Symbicort 160-4.5 Mcg Inhaler] 1 PUFF) IH SCH (09:00)
--- NOTE | 2018-09-08 10:22 | RAD REPORT ---
EXAM DESCRIPTION: RAD - Barium Swallow Modified - 09/08/2018 10:08 am CLINICAL HISTORY: Hoarseness, difficulty swallowing, choking episodes COMPARISON: None. TECHNIQUE: The patient was given liquid, semi-solid and solid forms of barium. Lateral view fluorosc opic imaging was performed in conjunction with speech pathology service. FINDINGS: Fluoro time was 2 minutes 54 seconds. There were 21 cine loop acquisitions obtained. Laryngeal penetration occurred. Patient was able to clear this contrast. No aspiration confirmed. Bar ium tablet remained in the midportion of the esophagus. Additional liquid ingestion was needed to pas s the tablet. IMPRESSION: Laryngeal penetration without aspiration. Findings are further detailed on speech pathology report.
[2018-09-08] MEDS: THIAMINE HCL 100 MG TABLET PO SCH (10:42)
[2018-09-08] MEDS: ENOXAPARIN 40 MG/0.4 ML SQ SCH (10:42)
[2018-09-08] MEDS: AMLODIPINE 10 MG TAB PO SCH (10:43)
[2018-09-08] MEDS: CEFUROXIME 250 MG TAB PO SCH (10:43)
[2018-09-08 10:44] VITALS: BP 125/78
--- NOTE | 2018-09-09 04:40 | DS ---
Date of Discharge: 09/08/2018 Consultants: Dr. Martinez with Pulmonology. Procedures: Modified barium swallow study shows laryngeal penetration without aspiration. Discharge Diagnoses: 1.Acute chronic obstructive pulmonary disease exacerbation, improved. 2.Acute respiratory distress with supplemental oxygen, resolved. 3.Alcohol dependence with acute withdrawal uncomplicated. 4.Alcohol abuse. 5.Essential hypertension. 6.Hyponatremia, improving. 7.Obesity, BMI 30. 8.Gastroesophageal reflux disease without esophagitis. 9.Hoarseness. The patient needs an ENT followup and scope. 10.Hypoxia secondary to chronic obstructive pulmonary disease, resolved. 11.Nicotine dependence with cigarette smoking, counseled. 12.Dysphagia. Modified barium swallow study completed. Hospital Course: The patient is a 48-year-old male with past medical history of COPD, alcohol abuse, hypertension, gastroesophageal reflux disease, obesity, who has had multiple admissions to this hosp ital, comes in with symptoms of shortness of breath and difficulty breathing. The patient was found to be hypoxic in severe distress, was found to have COPD exacerbation. He was started on nebulizer t reatments and steroids. The patient was seen by Dr. Martinez with Pulmonology. The patient was even tually weaned off oxygen. His room air sats did improve. His hypoxia was related to the COPD. He w as counseled extensively regarding smoking cessation. The patient did not seem to be interested in s moking cessation at this time. The patient also has history of alcohol dependence and was having an acute withdrawal with symptoms of tachycardia, elevated blood pressure, and tremors. The patient yun s not have any acute delirium tremens. No hallucinations. The patient was continued on multivitamin s. He was again counseled extensively regarding his alcohol use. The patient continues to have some hoarseness and needs to follow up with ENT, has not done so in the past, along with some dysphagia, which was evaluated with a modified barium swallow study. The patient was seen by speech therapist, who recommended swallow precautions including being seated at 90 degrees, small bites and sips, puree d for intake. The patient was encouraged to follow up with GI as an outpatient as there was no GI co verage at this point. The patient will likely need a scope down the line to further evaluate his dys phagia. The patient was then able to tolerate his diet well. His breathing had improved significant ly. He was off supplemental oxygen. He was able to ambulate without getting short of breath. The p atient was started on cefuroxime. He was then cleared for discharge from Dr. Martinez's standpoint. He is encouraged to follow up with his primary care physician in 2 to 3 days. Follow with pulmonolo gist, Dr. Martinez in 2 weeks. Follow up with ENT in 2 weeks. Follow up with GI in 2 weeks. Return to ER for worsening condition. Diet: Heart healthy. Complete alcohol cessation recommended. Activity: No strenuous activity. Medications: As per medication reconciliation list and shot course of cefuroxime for 1 week. Physical Examination: General: Awake, alert, oriented x3. No acute distress. Obese male. CV: S1, S2. No murmurs. Respiratory: Moving air well bilaterally. Minimal wheezing. Gastrointestinal: Abdomen is soft, nontender, nondistended. Positive bowel sounds. Extremities: No clubbing, cyanosis, or edema. Neuro: Nonfocal. SA/MODL Voice ID: [id number] Report ID: [id number]
== END 2018-09-08 12:29 | disposition home or self-care (01) ==
LOC: ER 09:36 → ERHOLD 13:15 → 4TH 14:30
PROVIDERS: ADMIT Family Medicine; ATTEND Hospitalist
DX: J44.1 Chronic obstructive pulmonary disease with (acute) exacerbation (principal); R09.02 Hypoxemia; R06.03 Acute respiratory distress; F17.210 Nicotine dependence, cigarettes, uncomplicated; F10.20 Alcohol dependence, uncomplicated; F10.239 Alcohol dependence with withdrawal, unspecified; I10 Essential (primary) hypertension; E87.1 Hypo-osmolality and hyponatremia; K21.9 Gastro-esophageal reflux disease without esophagitis; E66.9 Obesity, unspecified; Z68.30 Body mass index [BMI] 30.0-30.9, adult; R49.0 Dysphonia; R13.10 Dysphagia, unspecified
CPT/HCPCS: 36415; 71045; 74230; 80048; 80076; 80320; 81003; 83735; 83880; 84100; 84484; 85025; 85610; 93005; 94640; 94760; 96361; 96365; 96375; 99285; G0378; J1650; J2920; J2930; J3411; J7030; J7605

== ENCOUNTER 2018-10-18 19:49 | Observation (INO) | payer SELFPAY ==
[2018-10-18] MEDS ORDERED: THIAMINE 200 MG/2 ML INJ ONE ×2 (20:30→20:42)
[2018-10-18] MEDS ORDERED: IPRATROPIUM BROM 0.5MG/2.5ML ONE (20:30)
[2018-10-18] MEDS ORDERED: LEVALBUTEROL 1.25 MG/3 ML NEB ONE ×2 (20:30→22:18)
[2018-10-18] MEDS ORDERED: ASPIRIN 81 MG CHEWABLE TABLET ONE (20:30)
[2018-10-18] MEDS ORDERED: METHYLPREDNISOLONE 125 MG INJ ONE (20:30)
[2018-10-18] MEDS ORDERED: NITROGLYCERIN 1 GM PKT TD ONE (20:30)
[2018-10-18] MEDS ORDERED: MORPHINE 2 MG/ML SYR ONE ×2 (20:31→21:43)
[2018-10-18] MEDS ORDERED: ENOXAPARIN 80 MG/0.8 ML SQ ONE (20:31)
[2018-10-18] MEDS ORDERED: ONDANSETRON 4 MG/2 ML VIAL ONE (20:31)
[2018-10-18] MEDS ORDERED: NA CHLORIDE 0.9% 100 ML IV ONE (20:31)
[2018-10-18] MEDS ORDERED: FAMOTIDINE 20 MG/2 ML VIAL IV ONE (20:32)
[2018-10-18 20:34] LABS: Absolute Lymphocytes (CBC) 1.8 K/uL (0.7-4.9); Absolute Neutrophil 5.7 K/uL (1.8-8.0); Basophils % 0.6 % (0-1.3); Hematocrit 48.2 % (39.6-49.0); Lymphocytes % 20.8 % (15.3-44.8); MCH 34.8 pg (27.0-35.0); MCV 101.4 fL (80-100); MPV 7.7 fL (7.6-11.3); Monocytes % 11.6 % (3.3-12.3); RBC Red Blood Cell Count 4.75 M/uL (4.33-5.43)
[2018-10-18] MEDS ORDERED: NA CHLORIDE 0.9% 1,000 ML ONE (20:43)
[2018-10-18] MEDS ORDERED: MULTIVITAMINS 10 ML VIAL (INJ) IV ONE (20:44)
[2018-10-18] MEDS ORDERED: FOLIC ACID 5 MG/ML VIAL ONE (20:44)
[2018-10-18 20:57] LABS: Protime INR 0.97
[2018-10-18] MEDS ORDERED: METOPROLOL TAR 50 MG TAB ONE (20:59)
[2018-10-18 21:19] LABS: ALT/SGPT 49 U/L (12-78); AST/SGOT 32 U/L (15-37); Alkaline Phosphatase 76 U/L (45-117); BUN Blood Urea Nitrogen 15 mg/dL (7-18); Bicarbonate 27 mmol/L (21-32); Bilirubin Direct 0.2 mg/dL (0-0.2); Bilirubin Total 0.9 mg/dL (0.2-1.0); Glucose Level 100 mg/dL (74-106); Lipase 186 U/L (73-393); Magnesium 2.2 mg/dL (1.8-2.4); NT PRO-BNP 85 pg/mL (<125); Potassium 3.4 mmol/L (3.5-5.1); Sodium Level 133 mmol/L (136-145); Troponin (Emerg Dept Use Only) < 0.02 ng/mL (0.0-0.045)
[2018-10-18 21:48] LABS: Blood Gas Oxyhemoglobin 89.8 % (94-97); Blood O2 Saturation 93.7 % (92-98.5)
[2018-10-18] MEDS ORDERED: DEXAMETHASONE 10 MG/ML VIAL ONE (22:18)
[2018-10-18] MEDS ORDERED: POTASSIUM 25 MEQ EFFERV TAB ONE (22:18)
--- NOTE | 2018-10-18 23:05 | EDPHYS ---
Physician Documentation [facility] Name: Randy Briones Age: 48 yrs Sex: Male : 1970 Arrival Date: 10/18/2018 Time: 19:51 Bed 8 Private MD: ED Physician Bg Briones HPI: 10/18 20:11 This 48 yrs old Male presents to ER via Wheelchair with complaints of akash Breathing Difficulty. 20:11 The patient has shortness of breath at rest, with light activity. Onset: The akash symptoms/episode began/occurred 3 day(s) ago. The patient's shortness of breath has no apparent modifying factors. Associated signs and symptoms: The patient has no apparent associated signs or symptoms. Severity of symptoms: At their worst the symptoms were mild in the emergency department the symptoms are unchanged. The patient has not experienced similar symptoms in the past. Historical: - Allergies: 20:03 Lisinopril; aj1 - Home Meds: 20:03 Advair Diskus 250-50 mcg/dose Inhl dsdv 1 puff 2 times per day [Active]; albuterol aj1 sulfate 2.5 mg /3 mL (0.083 %) Inhl nebu 3 mL 3 times per day [Active]; gabapentin 100 mg Oral cap 3 caps 3 times per day [Active]; montelukast 10 mg Oral tab 1 tab once daily [Active]; Nexium 40 mg Oral cpDR 1 cap 2 times per day [Active]; Norvasc 10 mg Oral tab once daily [Active]; Spiriva with HandiHaler inhalation [Active]; Triamterene-Hydrochlorothiazid Oral once daily [Active]; - PMHx: 20:03 Alcoholism; COPD; Hypertension; aj1 - Immunization history:: Adult Immunizations up to date. - Social history:: Smoking status: Patient/guardian denies using tobacco. - Family history:: not pertinent. - Ebola Screening: : No symptoms or risks identified at this time. ROS: 20:11 Constitutional: Negative for fever, chills, and weight loss, Eyes: Negative for injury, akash pain, redness, and discharge, ENT: Negative for injury, pain, and discharge, Neck: Negative for injury, pain, and swelling, Back: Negative for injury and pain, : Negative for injury, bleeding, discharge, and swelling, MS/Extremity: Negative for injury and deformity, Skin: Negative for injury, rash, and discoloration, Neuro: Negative for headache, weakness, numbness, tingling, and seizure, Psych: Negative for depression, anxiety, suicide ideation, homicidal ideation, and hallucinations, Allergy/Immunology: Negative for hives, rash, and allergies, Endocrine: Negative for neck swelling, polydipsia, polyuria, polyphagia, and marked weight changes, Hematologic/Lymphatic: Negative for swollen nodes, abnormal bleeding, and unusual bruising. 20:11 Cardiovascular: Positive for chest pain. 20:11 Respiratory: Positive for shortness of breath, wheezing, expiratory. 20:11 Abdomen/GI: Positive for abdominal pain, abdominal cramps, abdominal distension, of the right upper quadrant. Exam: 20:11 Constitutional: This is a well developed, well nourished patient who is awake, alert, akash and in no acute distress. Head/Face: Normocephalic, atraumatic. Eyes: Pupils equal round and reactive to light, extra-ocular motions intact. Lids and lashes normal. Conjunctiva and sclera are non-icteric and not injected. Cornea within normal limits. Periorbital areas with no swelling, redness, or edema. ENT: Nares patent. No nasal discharge, no septal abnormalities noted. Tympanic membranes are normal and external auditory canals are clear. Oropharynx with no redness, swelling, or masses, exudates, or evidence of obstruction, uvula midline. Mucous membranes moist. Neck: Trachea midline, no thyromegaly or masses palpated, and no cervical lymphadenopathy. Supple, full range of motion without nuchal rigidity, or vertebral point tenderness. No Meningismus. Chest/axilla: Normal chest wall appearance and motion. Nontender with no deformity. No lesions are appreciated. Back: No spinal tenderness. No costovertebral tenderness. Full range of motion. Male : Normal genitalia with no discharge or lesions. Skin: Warm, dry with normal turgor. Normal color with no rashes, no lesions, and no evidence of cellulitis. MS/ Extremity: Pulses equal, no cyanosis. Neurovascular intact. Full, normal range of motion. Neuro: Awake and alert, GCS 15, oriented to person, place, time, and situation. Cranial nerves II-XII grossly intact. Motor strength 5/5 in all extremities. Sensory grossly intact. Cerebellar exam normal. Normal gait. Psych: Awake, alert, with orientation to person, place and time. Behavior, mood, and affect are within normal limits. 20:11 Cardiovascular: Rate: tachycardic, Rhythm: regular, Pulses: Pulses are 4+ in bilateral radial, brachial, femoral, popliteal, posterior tibial and and dorsalis pedis arteries.. Heart sounds: normal, Edema: is not appreciated, JVD: is not appreciated. 20:11 Respiratory: mild respiratory distress is noted, moderate respiratory distress is noted, Respirations: normal, Breath sounds: bronchial sounds, decreased breath sounds, rhonchi, wheezing: expiratory Vital Signs: 20:03 BP 128 / 115; Pulse 115; Resp 28; Temp 98.0; Pulse Ox 96% on R/A; Weight 81.65 kg; aj1 Height 5 ft. 4 in. (162.56 cm); Pain 10/10; 20:42 BP 153 / 120; Pulse 103; Resp 20; Pulse Ox 100% ; ea 21:30 BP 146 / 83; Pulse 83; Resp 16; Temp 98.1; Pulse Ox 96% on R/A; ak1 22:31 BP 135 / 88; Pulse 80; Resp 12; Pulse Ox 96% ; ea 20:03 Body Mass Index 30.90 (81.65 kg, 162.56 cm) [facility] MDM: 20:04 Patient medically screened. [facility] 20:14 Data reviewed: vital signs, nurses notes, lab test result(s), EKG, radiologic studies, [facility] CT scan, plain films. 10/18 20:04 Order name: Basic Metabolic Panel; Complete Time: 21:44 [facility] 10/18 20:04 Order name: CBC with Diff; Complete Time: 20:42 [facility] 10/18 20:04 Order name: LFT's; Complete Time: 21:44 [facility] 10/18 20:04 Order name: Magnesium; Complete Time: 21:44 [facility] 10/18 20:04 Order name: NT PRO-BNP; Complete Time: 21:44 [facility] 10/18 20:04 Order name: PT-INR; Complete Time: 21:44 [facility] 10/18 20:04 Order name: Troponin (emerg Dept Use Only); Complete Time: 21:44 [facility] 10/18 20:11 Order name: ABG; Complete Time: 23:02 [facility] 10/18 20:38 Order name: Lipase; Complete Time: 21:44 EDMS 10/19 00:17 Order name: Basic Metabolic Panel EDMS 10/19 00:17 Order name: Basic Metabolic Panel EDMS 10/19 00:17 Order name: CBC with Automated Diff EDMS 10/19 00:17 Order name: CBC with Automated Diff EDMS 10/18 20:04 Order name: XRAY Chest (1 view) [facility] 10/18 20:11 Order name: CT Aorta for Dissection [facility] 10/18 20:04 Order name: EKG; Complete Time: 20:05 ak 10/18 20:04 Order name: Cardiac monitoring; Complete Time: 20:05 [facility] 10/18 20:04 Order name: EKG - Nurse/Tech; Complete Time: 20:05 [facility] 10/18 20:04 Order name: IV Saline Lock; Complete Time: 20:05 ak 10/18 20:04 Order name: Labs collected and sent; Complete Time: 20:05 [facility] 10/18 20:04 Order name: O2 Per Protocol; Complete Time: 20:05 [facility] 10/18 20:04 Order name: O2 Sat Monitoring; Complete Time: 20:05 [facility] 10/19 00:17 Order name: Heart Healthy EDMS Administered Medications: 20:36 Drug: Lovenox 1 mg/kg Route: Sub-Q; Site: right lower abdomen; ak1 21:28 Follow up: Response: No adverse reaction ak1 20:37 Drug: SOLU-Medrol 125 mg Route: IVP; Site: right antecubital; ak1 22:19 Follow up: Response: No adverse reaction ak1 20:37 Drug: Xopenex 3.75 mg Route: Inhalation; ak1 20:37 Drug: AtroVENT Aerosol 0.5 mg Route: Inhalation; ak1 20:37 Drug: Aspirin Chewable Tablet 324 mg Route: PO; ak1 21:29 Follow up: Response: No adverse reaction ak1 20:38 Drug: Pepcid 20 mg Route: IVP; Site: right antecubital; ak1 22:20 Follow up: Response: No adverse reaction ak1 20:38 Drug: Nitro-Bid Ointment 2 % 1 inches Route: Transdermal; Site: anterior chest wall; ak1 20:38 Drug: morphine 2 mg Route: IVP; Site: right antecubital; ak1 21:29 Follow up: Response: No adverse reaction ak1 20:39 Drug: Zofran 4 mg Route: IVP; Site: right antecubital; ak1 21:28 Follow up: Response: No adverse reaction ak1 20:39 Drug: Thiamine 100 mg Route: IV; Rate: bolus; Site: right antecubital; ak1 20:39 Follow up: IV Status: Completed infusion; IV Intake: 100ml ak1 20:42 Drug: Banana Bag - (NS 0.9% 1000 ml, foLIC Acid 1 mg, Thiamine 100 mg, Multivitamin 1 ea amp) Route: IV; Rate: 125 ml/hr; Site: right antecubital; 23:29 Follow up: IV Status: Infusion continued upon admission ak1 20:50 Drug: Lopressor (metoprolol TARTRATE) 50 mg Route: PO; ak1 21:29 Follow up: Response: No adverse reaction ak1 21:36 Drug: morphine 2 mg Route: IVP; Site: right antecubital; ak1 22:14 Follow up: Response: Pain is decreased ak1 22:13 Drug: Potassium Effervescent Tablet 25 mEq Route: PO; ak1 22:14 Follow up: Response: No adverse reaction ak1 22:13 Drug: Decadron - Dexamethasone 10 mg Route: IVP; Site: right antecubital; ak1 22:14 Follow up: Response: No adverse reaction ak1 22:13 Drug: Xopenex 2.5 mg Route: Inhalation; ak1 Disposition: 10/18/18 23:04 Hospitalization ordered by Walt Beyer for Inpatient Admission. Preliminary diagnosis are Dyspnea, Chronic obstructive pulmonary disease with (acute) exacerbation, Hypokalemia, Tobacco abuse counseling, Tobacco use, Abdominal tenderness, Other chest pain, Hypoxemia. - Bed requested for Telemetry/MedSurg (Inpatient). - Status is Inpatient Admission. ak1 - Condition is Fair. - Problem is new. - Symptoms have improved. UTI on Admission? No Signatures: Dispatcher [employer] EDMS Aneta Luke RN RN [email or web address] Poonam Miguel RN RN mw Anderson, Corey, MD MD cha Krenek, Amber, RN RN [email or web address] Sirisha Crespo RN BRIGETTE keen Corrections: (The following items were deleted from the chart) 20:37 20:12 LIPASE+C.LAB.BRZ ordered. EDMS EDMS 23:05 23:04 Hospitalization Ordered by Walt Beyer MD for Inpatient Admission. Preliminary mw diagnosis is Dyspnea; Chronic obstructive pulmonary disease with (acute) exacerbation; Hypokalemia; Tobacco abuse counseling; Tobacco use; Abdominal tenderness; Other chest pain; Hypoxemia. Bed requested for Telemetry/MedSurg (Inpatient). Status is Inpatient Admission. Condition is Fair. Problem is new. Symptoms have improved. UTI on Admission? No. akash 10/19 01:51 10/18 23:05 10/18/2018 23:04 Hospitalization Ordered by Walt Beyer MD for Inpatient ak1 Admission. Preliminary diagnosis is Dyspnea; Chronic obstructive pulmonary disease with (acute) exacerbation; Hypokalemia; Tobacco abuse counseling; Tobacco use; Abdominal tenderness; Other chest pain; Hypoxemia. Bed requested for Telemetry/MedSurg (Inpatient). Status is Inpatient Admission. Condition is Fair. Problem is new. Symptoms have improved. UTI on Admission? No. mw
--- NOTE | 2018-10-18 23:05 | ER ---
Nurse's Notes [facility] Name: Randy Briones Age: 48 yrs Sex: Male : 1970 Arrival Date: 10/18/2018 Time: 19:51 Bed 8 Private MD: Diagnosis: Dyspnea;Chronic obstructive pulmonary disease with (acute) exacerbation;Hypokalemia;Tobacco abuse counseling;Tobacco use;Abdominal tenderness;Other chest pain;Hypoxemia Presentation: 10/18 20:00 Presenting complaint: Patient states: SOB that started at 1530 today, has been aj1 accompanied by sore throat, chest pain and abdominal pain. Patient rates his abdominal pain as the worst, at a 10/10. Patient is 96% on RA. Transition of care: patient was not received from another setting of care. Onset of symptoms was October 18, 2018 at 15:30. Risk Assessment: Do you want to hurt yourself or someone else? Patient reports no desire to harm self or others. Initial Sepsis Screen: Does the patient meet any 2 criteria? No. Patient's initial sepsis screen is negative. Does the patient have a suspected source of infection? No. Patient's initial sepsis screen is negative. Care prior to arrival: None. 20:00 Method Of Arrival: Wheelchair aj1 20:00 Acuity: CANDACE 3 aj1 Triage Assessment: 20:03 General: Appears in no apparent distress. uncomfortable, Behavior is cooperative, aj1 anxious, restless. Pain: Complains of pain in chest and abdomen Pain does not radiate. Pain currently is 10 out of 10 on a pain scale. Neuro: Level of Consciousness is awake, alert, obeys commands. Cardiovascular: Patient's skin is warm and dry. Rhythm is sinus tachycardia. Respiratory: Reports shortness of breath Airway is patent Respiratory effort is even, labored, Respiratory pattern is regular, hyperventilation Onset: The symptoms/episode began/occurred 4 and a half hours ago, the patient has moderate shortness of breath. Historical: - Allergies: 20:03 Lisinopril; aj1 - Home Meds: 20:03 Advair Diskus 250-50 mcg/dose Inhl dsdv 1 puff 2 times per day [Active]; albuterol aj1 sulfate 2.5 mg /3 mL (0.083 %) Inhl nebu 3 mL 3 times per day [Active]; gabapentin 100 mg Oral cap 3 caps 3 times per day [Active]; montelukast 10 mg Oral tab 1 tab once daily [Active]; Nexium 40 mg Oral cpDR 1 cap 2 times per day [Active]; Norvasc 10 mg Oral tab once daily [Active]; Spiriva with HandiHaler inhalation [Active]; Triamterene-Hydrochlorothiazid Oral once daily [Active]; - PMHx: 20:03 Alcoholism; COPD; Hypertension; aj1 - Immunization history:: Adult Immunizations up to date. - Social history:: Smoking status: Patient/guardian denies using tobacco. - Family history:: not pertinent. - Ebola Screening: : No symptoms or risks identified at this time. Screenin:43 Abuse screen: Denies threats or abuse. Nutritional screening: No deficits noted. ea Tuberculosis screening: No symptoms or risk factors identified. Fall Risk Assessment: 20:03 General: Appears distressed, uncomfortable. ak1 20:03 Pain: Complains of pain in abdomen and chest. Neuro: No deficits noted. Cardiovascular: ak1 Reports chest pain, nausea, shortness of breath. Cardiovascular: Heart tones S1 S2 present Capillary refill is > 3 seconds fingers Patient's skin is warm and dry. Respiratory: Airway is patent Respiratory effort is labored, pursed lip, Breath sounds are clear Onset: The symptoms/episode began/occurred today, the patient has mild shortness of breath. GI: No signs and/or symptoms were reported involving the gastrointestinal system. : No signs and/or symptoms were reported regarding the genitourinary system. EENT: No signs and/or symptoms were reported regarding the EENT system. Derm: No signs and/or symptoms reported regarding the dermatologic system. Musculoskeletal: No signs and/or symptoms reported regarding the musculoskeletal system. 20:03 Cardiovascular: Rhythm is sinus tachycardia. ak1 21:15 Reassessment: Patient appears in no apparent distress at this time. Patient and/or ak1 family updated on plan of care and expected duration. Pain level reassessed. Patient is alert, oriented x 3, equal unlabored respirations, skin warm/dry/pink. Patient states symptoms have improved. 22:21 Reassessment: Patient appears in no apparent distress at this time. Patient and/or ak1 family updated on plan of care and expected duration. Pain level reassessed. Patient is alert, oriented x 3, equal unlabored respirations, skin warm/dry/pink. Patient states symptoms have improved. pt c/o abd pain, denies chest pain at this time. . Cardiovascular: Denies chest pain. Vital Signs: 20:03 BP 128 / 115; Pulse 115; Resp 28; Temp 98.0; Pulse Ox 96% on R/A; Weight 81.65 kg; aj1 Height 5 ft. 4 in. (162.56 cm); Pain 10/10; 20:42 BP 153 / 120; Pulse 103; Resp 20; Pulse Ox 100% ; ea 21:30 BP 146 / 83; Pulse 83; Resp 16; Temp 98.1; Pulse Ox 96% on R/A; ak1 22:31 BP 135 / 88; Pulse 80; Resp 12; Pulse Ox 96% ; ea 20:03 Body Mass Index 30.90 (81.65 kg, 162.56 cm) aj1 ED Course: 19:51 Patient arrived in ED. ag3 20:02 Triage completed. aj1 20:03 Felicitas Morrow, RN is Primary Nurse. ak1 20:03 EKG done, by ED staff. Inserted saline lock: 20 gauge in right antecubital area, using ak1 aseptic technique. Blood collected. 20:03 Arm band placed on Patient placed in an exam room, Patient triaged in ER bed 8. aj1 20:03 Patient has correct armband on for positive identification. Placed in gown. Bed in low ak1 position. Call light in reach. Side rails up X 1. electric motor repairer on. Pulse ox on. NIBP on. 20:04 Bg Briones MD is Attending Physician. akash 20:53 Radiology exam delayed due to lab results not completed at this time. (BUN/Creatinine). nj 21:46 XRAY Chest (1 view) In Process Unspecified. EDMS 22:01 Note: DELAY IN PT CT DUE TO PT BEING ON BEDSIDE TOILET. kc3 22:07 CT Aorta for Dissection In Process Unspecified. EDMS 23:02 Walt Beyer MD is Hospitalizing Provider. akash 23:28 No provider procedures requiring assistance completed. Patient admitted, IV remains in ak1 place. Administered Medications: 20:36 Drug: Lovenox 1 mg/kg Route: Sub-Q; Site: right lower abdomen; ak1 21:28 Follow up: Response: No adverse reaction ak1 20:37 Drug: SOLU-Medrol 125 mg Route: IVP; Site: right antecubital; ak1 22:19 Follow up: Response: No adverse reaction ak1 20:37 Drug: Xopenex 3.75 mg Route: Inhalation; ak1 20:37 Drug: AtroVENT Aerosol 0.5 mg Route: Inhalation; ak1 20:37 Drug: Aspirin Chewable Tablet 324 mg Route: PO; ak1 21:29 Follow up: Response: No adverse reaction ak1 20:38 Drug: Pepcid 20 mg Route: IVP; Site: right antecubital; ak1 22:20 Follow up: Response: No adverse reaction ak1 20:38 Drug: Nitro-Bid Ointment 2 % 1 inches Route: Transdermal; Site: anterior chest wall; ak1 20:38 Drug: morphine 2 mg Route: IVP; Site: right antecubital; ak1 21:29 Follow up: Response: No adverse reaction ak1 20:39 Drug: Zofran 4 mg Route: IVP; Site: right antecubital; ak1 21:28 Follow up: Response: No adverse reaction ak1 20:39 Drug: Thiamine 100 mg Route: IV; Rate: bolus; Site: right antecubital; ak1 20:39 Follow up: IV Status: Completed infusion; IV Intake: 100ml ak1 20:42 Drug: Banana Bag - (NS 0.9% 1000 ml, foLIC Acid 1 mg, Thiamine 100 mg, Multivitamin 1 ea amp) Route: IV; Rate: 125 ml/hr; Site: right antecubital; 23:29 Follow up: IV Status: Infusion continued upon admission ak1 20:50 Drug: Lopressor (metoprolol TARTRATE) 50 mg Route: PO; ak1 21:29 Follow up: Response: No adverse reaction ak1 21:36 Drug: morphine 2 mg Route: IVP; Site: right antecubital; ak1 22:14 Follow up: Response: Pain is decreased ak1 22:13 Drug: Potassium Effervescent Tablet 25 mEq Route: PO; ak1 22:14 Follow up: Response: No adverse reaction ak1 22:13 Drug: Decadron - Dexamethasone 10 mg Route: IVP; Site: right antecubital; ak1 22:14 Follow up: Response: No adverse reaction ak1 22:13 Drug: Xopenex 2.5 mg Route: Inhalation; ak1 Intake: 20:39 IV: 100ml; Total: 100ml. ak1 Outcome: 23:04 Decision to Hospitalize by Provider. akash 23:28 Admitted to Med/surg accompanied by tech, via wheelchair, with chart. ak1 23:28 Condition: stable 23:28 Instructed on the need for admit. 10/19 01:51 Patient left the ED. ak1 Signatures: Dispatcher [employer] EDAneta Allison, RN RN Bg Mix MD MD cha Krenek, Amber RN RN ak1 Isidro Islas Elena RN RN leonila Samaniego, Liat [email or web address] Latasha Mcneil3
[2018-10-19] MEDS ORDERED: ONDANSETRON 4 MG/2 ML VIAL IV PRN (00:03)
[2018-10-19] MEDS ORDERED: ALBUTEROL 2.5 MG/3 ML NEB SOL NEB PRN (00:03)
[2018-10-19] MEDS ORDERED: IPRATROPIUM BROM 0.5MG/2.5ML NEB PRN (00:03)
--- NOTE | 2018-10-19 00:10 | P.HP ---
Certification for Inpatient Patient admitted to: Observation With expected LOS: <2 Midnights Practitioner: I am a practitioner with admitting privileges, knowledge of patient current condition, hospital course, and medical plan of care. Services: Services provided to patient in accordance with Admission requirements found in Title 42 Section 412.3 of the Code of Federal Regulations Patient History Date of Service: 10/19/18 Reason for admission: COPD exacerbation History of Present Illness: Mr Briones is a 48 years old male with history of COPD, tobacco and alcohol abuse, who came to ED complaining of progressive SOB since this afternoon. He also states that his sputum changed color from yellow to brownish today. He denied fever or chills. He is also complaining of diffuse abdominal pain, mostly localized on RLQ, 5/10 of intensity. He denied nausea, vomiting or diarrhea. In ER he remained afebrile, O2 sat 96% on RA, however, he seems dyspneic at rest. CXR shows no acute infiltrate, awaiting radiology report. CT dissection done in ER, no report available yet. Allergies Lisinopril Adverse Reaction (Mild, Uncoded 02/11/18 13:05) Shortness of breath Home medications list reviewed: Yes Home Medications: Albuterol Neb [Proventil 0.083% Neb Soln] 1 vial IH Q6H PRN 07/19/18 Amlodipine [Norvasc*] 1 tab PO BID 07/19/18 Budesonide/Formoterol Fumarate [Symbicort 160-4.5 Mcg Inhaler] 1 puff IH BID 08/26 Fluticasone Propionate [Flonase Allergy Relief] 1 puff [place]LE DAILY 07/19/18 Thiamine Mononitrate [Vitamin B-1] 1 tab PO BID 07/19/18 predniSONE [Prednisone*] 20 mg PO DAILY 09/06/18 Albuterol Neb [Proventil 0.083% Neb Soln] 2.5 mg NEB [id number] PRN amp 09/07/18 Cefuroxime Axetil [Cefuroxime] 500 mg PO BID #14 tab 09/07/18 - Past Medical/Surgical History Diabetic: No -: Hypertension -: COPD -: Tobacco abuse -: Alcohol abuse -: GERD -: Obesity, BMI 30.9 -: 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 - Family History Mother -: Diabetes, Cancer Notes: colon cancer Father -: Lung disease - Social History Smoking Status: Current every day smoker Counseled patient to stop smoking for: less than 10 minutes Alcohol use: Yes CD- Drugs: No Caffeine use: Yes Place of Residence: Home Review of Systems 10-point ROS is otherwise unremarkable Physical Examination - Physical Exam General: Alert, In no apparent distress HEENT: Atraumatic, PERRLA, Mucous membr. moist/pink, EOMI, Sclerae nonicteric Neck: Supple, 2+ carotid pulse no bruit, No LAD, Without JVD or thyroid abnormality Respiratory: Clear to auscultation bilaterally, Normal air movement Cardiovascular: Regular rate/rhythm, Normal S1 S2 Gastrointestinal: Normal bowel sounds, No tenderness Musculoskeletal: No tenderness Integumentary: No rashes Neurological: Normal gait, Normal speech, Normal strength at 5/5 x4 extr, Normal tone, Normal affect Lymphatics: No axilla or inguinal lymphadenopathy - Studies Laboratory Data (last 24 hrs) 10/18/18 20:45: PT 11.4, INR 0.97 10/18/18 20:45: Sodium 133 L, Potassium 3.4 L, BUN 15, Creatinine 0.60, Glucose 100, Magnesium 2.2, Total Bilirubin 0.9, AST 32, ALT 49, Alkaline Phosphatase 76 , Lipase 186 10/18/18 20:00: Lipase Cancelled 10/18/18 20:00: WBC 8.6, Hgb 16.5, Hct 48.2, Plt Count 209 Assessment and Plan - Problems (Diagnosis) (1) Alcohol abuse Onset Date: 02/11/18 Current Visit: No Status: Acute (2) COPD exacerbation Onset Date: 09/07/18 Current Visit: No Status: Acute (3) HTN (hypertension) Onset Date: 02/11/18 Current Visit: No Status: Acute Qualifiers: Hypertension type: essential hypertension (4) Tobacco abuse Onset Date: 02/11/18 Current Visit: No Status: Acute - Plan Will admit the patient due to early signs of COPD exacerbation. Will start low dose of IV steroids, breathing treatment, Banana bag and symptomatic medication for pain. Consult Pulmonology team. - Advance Directives Does patient have a Living Will: No Does patient have a Durable POA for Healthcare: No - Code Status/Comfort Care Code Status Assessed: Yes Code Status: Full Code
[2018-10-19] MEDS: METHYLPREDNISOLONE 40 MG INJ IV SCH ×3 (01:00→16:52)
[2018-10-19] MEDS ORDERED: MORPHINE 2 MG/ML SYR IV ONE (02:31)
--- NOTE | 2018-10-19 05:46 | EKG ---
Test Date: 2018-10-18 Test Time: 20:03:27 Gas Mask Inspector: KAYLAN MEASUREMENT RESULTS: Intervals: Rate: 113 NV: 126 QRSD: 90 QT: 346 QTc: 474 [place]: P: 57 NV: 126 QRS: 84 T: 68 INTERPRETIVE STATEMENTS: Sinus tachycardia Nonspecific ST abnormality Abnormal ECG Compared to ECG 09/06/2018 10:24:07 ST (T wave) deviation now present Electronically Signed On 10-19-18 05:45:28 REGIONAL MANAGER by Wilber Ray
[2018-10-19 07:10] LABS: BUN Blood Urea Nitrogen 15 mg/dL (7-18); Bicarbonate 28 mmol/L (21-32); Glucose Level 131 mg/dL (74-106); Potassium 4.3 mmol/L (3.5-5.1); Sodium Level 135 mmol/L (136-145)
[2018-10-19 07:14] LABS: Absolute Lymphocytes (CBC) 0.5 K/uL (0.7-4.9); Absolute Monocytes 0.2 K/uL (0.1-1.3); Absolute Neutrophil 4.2 K/uL (1.8-8.0); Basophils % 0.5 % (0-1.3); Eosinophils % 0.1 % (0-4.4); Hematocrit 43.1 % (39.6-49.0); Lymphocytes % 9.4 % (15.3-44.8); MCH 34.7 pg (27.0-35.0); MCV 100.5 fL (80-100); Monocytes % 3.3 % (3.3-12.3); RBC Red Blood Cell Count 4.29 M/uL (4.33-5.43)
--- NOTE | 2018-10-19 07:16 | RAD REPORT ---
EXAM DESCRIPTION: RAD - Chest Single View - 10/18/2018 9:46 pm CLINICAL HISTORY: Chest pain, shortness of breath COMPARISON: September 06 TECHNIQUE: AP portable chest image was obtained 2114 hours . FINDINGS: Lungs are clear. Lung markings are similar to the comparison. Heart and vasculature are no rmal. No measurable pleural effusion and no pneumothorax. No acute bony abnormality seen. No acute ao rtic findings suspected. IMPRESSION: No acute cardiopulmonary process. No significant interval change.
[2018-10-19] MEDS ORDERED: PNEUMOCOCCAL VACCINE 0.5 ML IMVAC ONE (08:00)
--- NOTE | 2018-10-19 08:06 | RAD REPORT ---
EXAM DESCRIPTION: CT - Angio Aorta For Dissection - 10/19/2018 3:47 am CLINICAL HISTORY: . Chest pain abdominal pain COMPARISON: None TECHNIQUE: Computed tomography angiography of the chest, abdomen pelvis were obtained. 100 cc Isovue 370 was administered intravenously. Coronal and sagittal reconstruction were performed.Preliminary r eport generated by virtual radiologic and reviewed prior to dictation MIP 3D reconstruction was performed All CT scans are performed using dose optimization technique as appropriate and may include automated exposure control or mA/KV adjustment according to patient size. FINDINGS: An aortic dissection is not seen. An aortic aneurysm is not displayed. The celiac, SMA and ROGERIO are patent . A 2.2 centimeter retroareolar left breast density A lung consolidation is not present. A pericardial effusion is not seen. A pleural effusion is not n oted. Fatty infiltration liver. Liver is mildly enlarged. Spleen, pancreas adrenals kidneys demonstrate no significant abnormality. The appendix is normal. There no evidence diverticulitis. Small bilateral inguinal hernias IMPRESSION: Negative for an aortic dissection. 2.2 centimeter retroareolar left breast density probably representing gynecomastia. However, this yusuf uld be correlated clinically
[2018-10-19 08:12] LABS: Blood Morphology Comment NOT SEEN (NOT SEEN); Platelet Estimate ADEQ; Urine White Blood Cell Casts OK
[2018-10-19] MEDS: FOLIC ACID 1 MG, MULTIVITAMINS INJ 10 ML, THIAMINE HCL 100 MG in NA CHLORIDE 0.9% 1,000 ML IV SCH (10:23)
[2018-10-19 10:53] LABS: Urine Appearance CLEAR; Urine Bilirubin NEGATIVE (NEG); Urine Blood NEGATIVE (NEG); Urine Color DK YELLOW; Urine Glucose NEGATIVE (NEG); Urine Protein TRACE (NEG); Urine Specific Gravity >=1.030 (1.005-1.030); Urine Urobilinogen 0.2 mg/dL (0.2-1.0)
[2018-10-19 11:02] LABS: Urine Microscopic Reflex ORDER UMIC
[2018-10-19 11:10] LABS: Urine Bacteria NONE SEEN /HPF (NONE SEEN); Urine Culture Reflex Order NOT NEEDED; Urine RBC NONE SEEN /HPF (NONE SEEN)
[2018-10-19] MEDS ORDERED: HYDROCODONE/APAP 5/325 MG TAB PO ONE (12:52)
--- NOTE | 2018-10-19 17:32 | RAD REPORT ---
EXAM DESCRIPTION: US - BREAST/AXILLA, COMPLETE - 10/19/2018 4:23 pm CLINICAL HISTORY: Left breast mass COMPARISON: CT October 18, 2018 FINDINGS: 21 millimeter hypoechoic structure is present within the retroareolar region of the left breast. IMPRESSION: 21 millimeter hypoechoic structures within retroareolar region of the left breast has no nspecific characteristics on ultrasound. Most likely this represents gynecomastia. Neoplasm can have this appearance. If neoplasm is suspected then mammography would be recommended for further evaluatio n
--- NOTE | 2018-10-19 20:21 | PN ---
Date of Progress Note: 10/19/2018 Subjective: The patient seen and examined. Chart reviewed and case discussed with RN. The patient states his breathing is still somewhat labored, not back to his baseline. at the bedside. Review of Systems: Negative except as above. Medications: List reviewed. Physical Examination: Vital Signs: Temperature 97.6, pulse rate 85, blood pressure 151/82, respirations 18, O2 98% on 2 L via nasal cannula. General: Awake, alert, oriented x3, in mild distress. Obese male, appears older than stated age. CV: S1 and S2. Regular rate and rhythm. Peripheral pulses present. No murmurs. Respiratory: Diminished breath sounds bilaterally. Wheezing heard throughout. The patient is sligh tly tachypneic. No use of accessory muscles. Gastrointestinal: Abdomen is soft, nontender, nondistended. Positive bowel sounds. No guarding or rigidity. Extremities: No clubbing, cyanosis, or edema. Neuro: Nonfocal. Laboratory Data: Sodium 135, potassium 4.3, chloride 102, CO2 28, BUN 15, creatinine 0.6, glucose 13 1, calcium 8.6. WBC 4.9, H and H 14.9 and 43.1, MCV is 100.5, platelets 194, neutrophils 86%. Sputu m culture is pending. CT aortic dissection shows negative for aortic dissection, 2.2 cm retroareolar left breast density probably representing gynecomastia, however, should be correlated clinically. C hest x-ray shows no acute cardiopulmonary process. Assessment And Plan: A 48-year-old male with: 1.Acute chronic obstructive pulmonary disease exacerbation. The patient requiring supplemental oxyg enation, we will try to wean off as tolerated. Continue IV steroids and nebulizer treatments. The p atient is steroid dependent. Follows with Pulmonology as outpatient. The patient did request some h elp scheduling his PFTs as outpatient. 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 2.Alcohol dependence, MCV is elevated. The patient having some tremors, however, no active withdraw al symptoms. We will continue banana bag with IV fluids. The patient counseled. 3.Essential hypertension, stable. 4.Nicotine dependence with cigarette smoking continue. 5.Left breast retroareolar density 2.[address] shows probable gynecomastia, however, may be malignan t. The patient will need mammogram as outpatient. We will obtain ultrasound to further characterize the lesion. 6.Gastrointestinal and deep venous thrombosis prophylaxis, addressed. Plan: Likely discharge in the next 24-48 hours depending on improvement. /LOGAN Voice ID: [id number] Report ID: [id number]
[2018-10-19] MEDS ORDERED: THIAMINE MONONITRATE PO SCH (21:00)
[2018-10-19] MEDS ORDERED: AMLODIPINE 10 MG TAB PO SCH (21:00)
[2018-10-19] MEDS: LORazepam 2 MG/ML VIAL IV PRN (21:56)
[2018-10-20] MEDS: METHYLPREDNISOLONE 40 MG INJ IV SCH ×2 (00:08→09:32)
[2018-10-20 06:20] LABS: Absolute Lymphocytes (CBC) 0.7 K/uL (0.7-4.9); Absolute Monocytes 0.4 K/uL (0.1-1.3); Absolute Neutrophil 6.5 K/uL (1.8-8.0); Basophils % 0.5 % (0-1.3); Lymphocytes % 8.6 % (15.3-44.8); MCH 34.9 pg (27.0-35.0); MCV 101.9 fL (80-100); MPV 7.5 fL (7.6-11.3); Monocytes % 5.7 % (3.3-12.3); RBC Red Blood Cell Count 4.22 M/uL (4.33-5.43)
[2018-10-20 06:31] LABS: BUN Blood Urea Nitrogen 15 mg/dL (7-18); Bicarbonate 28 mmol/L (21-32); Glucose Level 123 mg/dL (74-106); Potassium 4.2 mmol/L (3.5-5.1); Sodium Level 136 mmol/L (136-145)
[2018-10-20 06:38] VITALS: BMI 30.7
[2018-10-20 09:28] VITALS: O2SAT 95
[2018-10-20] MEDS: LORazepam 2 MG/ML VIAL IV PRN (09:29)
[2018-10-20] MEDS: FOLIC ACID 1 MG, MULTIVITAMINS INJ 10 ML, THIAMINE HCL 100 MG in NA CHLORIDE 0.9% 1,000 ML IV SCH (09:32)
[2018-10-20 12:06] VITALS: BP 148/87; TEMP 98.9
--- NOTE | 2018-10-21 07:05 | DS ---
Date of Discharge: 10/20/2018 Discharge Diagnoses: 1.Acute chronic obstructive pulmonary disease exacerbation. 2.Alcohol dependence. 3.Essential hypertension. 4.Nicotine dependence, cigarette smoking. 5.Left breast retroareolar density secondary to gynecomastia. Hospital Course: The patient is a 48-year-old male with history of COPD, nicotine and alcohol depend ence who has been noncompliant with treatment and continues to smoke, has had multiple recurrent admi ssions for COPD, comes in again with shortness of breath, some dyspnea with exertion, requiring suppl emental oxygen. Chest x-ray showed no acute infiltrate. CT scan was done to rule out aortic dissect ion, which was negative; however, he was found to have a 2.2 cm retroareolar left breast density repr esenting gynecomastia. Ultrasound was done to further evaluate this density, which showed a 21 mm hy poechoic structures within the retroareolar region of the left breast, nonspecific characteristics, m ost likely represents gynecomastia; however, to rule out neoplasm, the patient will need mammography. The patient understands that this may be malignant and wants to have a mammography done to further diagnose and treat this lesion. at the bedside. The patient was continued on IV steroids and n ebulizer treatments. He was able to be weaned off oxygen. He did have a good response to treatment. He was again counseled regarding alcohol and nicotine use, however, has no plans on quitting either . The patient does have followup with Dr. Martinez, outside sales inspector and has PFTs ordered as an outpati ent. Overall, the patient did well. His potassium was replaced. White count was normal. He was th en able to ambulate without difficulty off oxygen. He was then discharged home in a stable condition . Activity: No strenuous activity. Medications: As per medication reconciliation list. Followup: Follow up with primary care physician, Dr. Michaels in 2-3 days. Follow with outside sales inspector, Dr Joni Martinez in 2 weeks. Return to ER for worsening condition. Obtain mammogram as soon as possible. Diet: Heart healthy. Physical Examination: General: Awake, alert, oriented, no acute distress. CV: S1, S2. No murmurs. Respiratory: Moving air well bilaterally. Some wheezing heard minimally. Gastrointestinal: Abdomen is soft, nontender, nondistended. Positive bowel sounds. Extremities: No clubbing, cyanosis, edema. Neurologic: Nonfocal. SA/MODL Voice ID: [id number] Report ID: [id number]
== END 2018-10-20 13:45 | disposition home or self-care (01) ==
LOC: ER 19:49 → 4TH 23:04 → INTOOBSV 23:04
PROVIDERS: ADMIT Family Medicine; ATTEND Internal Medicine
DX: J44.1 Chronic obstructive pulmonary disease with (acute) exacerbation (principal); F10.20 Alcohol dependence, uncomplicated; I10 Essential (primary) hypertension; F17.210 Nicotine dependence, cigarettes, uncomplicated; N62 Hypertrophy of breast; Z91.19 Patient's noncompliance with other medical treatment and regimen
CPT/HCPCS: 36415; 71045; 71275; 74175; 76641; 80048; 80076; 81003; 81015; 82805; 83690; 83735; 83880; 84484; 85025; 85610; 87070; 87205; 93005; 94640; 96365; 96366; 96372; 96375; 99285; G0378; J1100; J1650; J2270; J2405; J2920; J2930; J3411; J7030; Q9967

== ENCOUNTER 2018-11-14 18:18 | Inpatient (IN) | payer SELFPAY ==
[2018-11-14 19:44] LABS: Absolute Lymphocytes (CBC) 1.7 K/uL (0.7-4.9); Absolute Monocytes 0.8 K/uL (0.1-1.3); Absolute Neutrophil 6.8 K/uL (1.8-8.0); Basophils % 0.5 % (0-1.3); Eosinophils % 0.5 % (0-4.4); Hematocrit 43.7 % (39.6-49.0); Lymphocytes % 18.3 % (15.3-44.8); Monocytes % 8.9 % (3.3-12.3); RBC Red Blood Cell Count 4.32 M/uL (4.33-5.43)
[2018-11-14 19:47] LABS: Protime INR 0.95
[2018-11-14 20:06] LABS: ALT/SGPT 43 U/L (12-78); AST/SGOT 37 U/L (15-37); Albumin 4.2 g/dL (3.4-5.0); Alkaline Phosphatase 76 U/L (45-117); BUN Blood Urea Nitrogen 8 mg/dL (7-18); Bicarbonate 27 mmol/L (21-32); Bilirubin Direct 0.3 mg/dL (0-0.2); Bilirubin Total 0.7 mg/dL (0.2-1.0); Glucose Level 84 mg/dL (74-106); Lipase 196 U/L (73-393); Magnesium 1.9 mg/dL (1.8-2.4); NT PRO-BNP 42 pg/mL (<125); Potassium 3.4 mmol/L (3.5-5.1); Protein, Total 7.7 g/dL (6.4-8.2); Sodium Level 136 mmol/L (136-145); Troponin (Emerg Dept Use Only) < 0.02 ng/mL (0.0-0.045)
--- NOTE | 2018-11-14 21:14 | ER ---
Nurse's Notes [facility] Name: Randy Briones Age: 48 yrs Sex: Male : 1970 Arrival Date: 11/14/2018 Time: 18:19 Bed 17 Private MD: Adrianna Michaels H Diagnosis: Alcohol dependence with withdrawal, unspecified Presentation: 11/14 18:33 Presenting complaint: Patient states: i was here this morning, admitted and felt hj better, i signed myself out; now we got home, i felt bad again, started SOB; denies fever;. Transition of care: patient was not received from another setting of care. Onset of symptoms was November 14, 2018. Risk Assessment: Do you want to hurt yourself or someone else? Patient reports no desire to harm self or others. Initial Sepsis Screen: Does the patient meet any 2 criteria? No. Patient's initial sepsis screen is negative. Does the patient have a suspected source of infection? No. Patient's initial sepsis screen is negative. Care prior to arrival: None. 18:33 Method Of Arrival: Ambulatory 18:33 Acuity: CANDACE 3 hj Triage Assessment: 18:36 General: Appears in no apparent distress. uncomfortable, Behavior is calm, cooperative, hj appropriate for age. Pain:. Historical: - Allergies: 18:35 Lisinopril; hj - PMHx: 18:35 Alcoholism; COPD; Hypertension; hj - Immunization history:: Adult Immunizations unknown. - Social history:: Smoking status: Patient uses tobacco products, Patient uses alcohol. - Ebola Screening: : Patient negative for fever greater than or equal to 101.5 degrees Fahrenheit, and additional compatible Ebola Virus Disease symptoms Patient denies exposure to infectious person Patient denies travel to an Ebola-affected area in the 21 days before illness onset. Screenin:36 Abuse screen: Denies threats or abuse. Denies injuries from another. Nutritional hj screening: No deficits noted. Tuberculosis screening: No symptoms or risk factors identified. Fall Risk None identified. Assessment: 19:00 General: Appears in no apparent distress. uncomfortable, Behavior is calm, cooperative, rr5 appropriate for age. Pain: Denies pain. Neuro: Level of Consciousness is awake, alert, obeys commands, Oriented to person, place, time, situation. Cardiovascular: Capillary refill < 3 seconds Patient's skin is warm and dry. Respiratory: Reports shortness of breath at rest on exertion Airway is patent Respiratory effort is labored, Respiratory pattern is tachypnea. GI: Abdomen is round. : No signs and/or symptoms were reported regarding the genitourinary system. EENT: No signs and/or symptoms were reported regarding the EENT system. Derm: Skin is intact, Skin is red, on the face chest and extremities Skin temperature is warm. Musculoskeletal: Capillary refill < 3 seconds, Range of motion: intact in all extremities. 19:30 Reassessment: Patient appears in no apparent distress at this time. tremors noted no rr5 other complaints made.stat medication given. 20:30 Reassessment: Patient appears in no apparent distress at this time. Patient and/or rr5 family updated on plan of care and expected duration. Pain level reassessed. asleep comfortably on bed Patient states feeling better. Patient states symptoms have improved. 21:30 Reassessment: Patient appears in no apparent distress at this time. Patient and/or rr5 family updated on plan of care and expected duration. Pain level reassessed. for admission. hooked to oxygen at 2 liters via nasal cannula O2 saturation 96% complaining of mild SOB while sleeping. 22:30 Reassessment: Patient appears in no apparent distress at this time. Patient and/or rr5 family updated on plan of care and expected duration. Pain level reassessed. asleep comfortably on bed Patient states feeling better. Patient states symptoms have improved. 23:30 Reassessment: Patient appears in no apparent distress at this time. Patient and/or rr5 family updated on plan of care and expected duration. Pain level reassessed. no complaints made. mild tremors noted Patient states feeling better. Patient states symptoms have improved. 11/15 00:00 Reassessment: Patient appears in no apparent distress at this time. Patient and/or rr5 family updated on plan of care and expected duration. Pain level reassessed. explained the need for admission and agreed. 00:30 Reassessment: Patient appears in no apparent distress at this time. Patient and/or rr5 family updated on plan of care and expected duration. Pain level reassessed. get out from bed. assisted patient while urinating Patient states feeling better. Patient states symptoms have improved. 01:40 Reassessment: Patient appears in no apparent distress at this time. Patient and/or rr5 family updated on plan of care and expected duration. Pain level reassessed. informed ED provider patient having tremors with order and carried out. 02:00 Reassessment: seen and examined by dr. celestin.patient is on ED hold see [facility] for rr5 documentation. Vital Signs: 11/14 18:35 BP 159 / 91; Pulse 107; Resp 20; Temp 98.6; Pulse Ox 98% on R/A; Weight 79.38 kg; hj Height 5 ft. 4 in. (162.56 cm); Pain 10/10; 19:00 BP 170 / 78; Pulse 109; Resp 24; Temp 98.6; Pulse Ox 99% ; rr5 19:50 BP 172 / 75; Pulse 106; Resp 23; Pulse Ox 98% on Nebulizer Mask; rr5 20:00 BP 180 / 96; Pulse 106; Resp 24; Pulse Ox 97% ; rr5 20:30 BP 155 / 93; Pulse 93; Resp 24; Pulse Ox 99% ; rr5 21:00 BP 141 / 78; Pulse 95; Resp 22; Pulse Ox 96% ; rr5 21:30 BP 131 / 85; Pulse 113; Resp 20; Pulse Ox 96% ; rr5 22:00 BP 135 / 66; Pulse 94; Resp 20; Pulse Ox 99% on 2 lpm NC; rr5 23:00 BP 112 / 77; Pulse 84; Resp 20; Pulse Ox 98% on 2 lpm NC; rr5 11/15 00:00 BP 142 / 87; Pulse 78; Resp 19; Pulse Ox 99% on 2 lpm NC; Pain 0/10; rr5 01:00 BP 145 / 88; Pulse 81; Resp 20; Pulse Ox 97% on 2 lpm NC; rr5 02:00 BP 131 / 82; Pulse 91; Resp 20; Pulse Ox 99% on 2 lpm NC; rr5 02:00 rr5 11/14 18:35 Body Mass Index 30.04 (79.38 kg, 162.56 cm) hj 02:00 see [facility] for succeeding vital signs rr5 ED Course: 11/14 18:19 Patient arrived in ED. sb2 18:19 Adrianna Michaels DO is Private Physician. sb2 18:34 Triage completed. hj 18:36 Arm band placed on right wrist. hj 18:36 Patient has correct armband on for positive identification. Placed in gown. Bed in low hj position. Call light in reach. Side rails up X 1. Adult w/ patient. 18:44 Bg Pro PA is PHCP. cp 18:44 Bg Briones MD is Attending Physician. cp 19:00 youth nutritional monitor on. Pulse ox on. NIBP on. rr5 19:13 Joselito Hernandez RN is Primary Nurse. rr5 19:15 Inserted saline lock: 20 gauge in left forearm, using aseptic technique. Blood rr5 collected. 19:20 Initial Neb Treatment Given as ordered Patient was instructed and evaluated on rr5 procedure Patient tolerated procedure well without adverse effect. 21:13 Satnam Celestin MD is Hospitalizing Provider. cp 21:29 US Abdomen Limited: RUQ/epigastric In Process Unspecified. EDMS 21:30 Oxygen administration via nasal cannula \T\ 2L/min Response to oxygen therapy: symptoms rr5 improved. 11/15 01:59 No provider procedures requiring assistance completed. Patient admitted, IV remains in rr5 place. intact, No redness/swelling at site. Administered Medications: 11/14 19:15 Drug: Xopenex (3) 1.25 mg Route: Inhalation; rr5 11/15 01:58 Follow up: Response: No adverse reaction rr5 11/14 19:30 Drug: Ativan 1 mg Route: IVP; Site: left forearm; rr5 11/15 01:59 Follow up: Response: No adverse reaction rr5 11/14 22:00 Drug: Banana Bag - (NS 0.9% 1000 ml, foLIC Acid 1 mg, Thiamine 100 mg, Multivitamin 1 rr5 amp) Route: IV; Rate: 125 ml/hr; Site: left forearm; 11/15 01:58 Follow up: Response: No adverse reaction; IV Status: Infusion continued upon admission; rr5 IV Intake: 400ml 11/14 22:01 Drug: Metoprolol 50 mg Route: PO; rr5 11/15 01:58 Follow up: Response: No adverse reaction rr5 11/14 22:01 Drug: Ativan 1 mg Route: IVP; Site: left forearm; rr5 11/15 01:57 Follow up: Response: No adverse reaction rr5 01:50 Drug: Ativan 2 mg Route: IVP; Site: left forearm; rr5 02:26 Follow up: Response: No adverse reaction rr5 Intake: 01:58 IV: 400ml; Total: 400ml. rr5 Output: 11/14 20:20 Urine: 300ml (Voided); Total: 300ml. rr5 23:00 Urine: 400ml (Voided); Total: 700ml. rr5 11/15 00:30 Urine: 450ml (Voided); Total: 1150ml. rr5 Outcome: 11/14 21:14 Decision to Hospitalize by Provider. cp 11/15 01:59 Admitted to ER Hold. Please see [facility] for further documentation. rr5 Condition: stable Instructed on the need for admit. 16:17 Patient left the ED. tw2 Signatures: Dispatcher [employer] EDMS Elliott Todd, RN RN Bg Perry PA PA cp Wise, Tara, RN RN tw2 Joellen Mason 2 Joselito Hernandez RN RN rr5 Corrections: (The following items were deleted from the chart) 11/14 18:37 18:35 Pulse 107bpm; Resp 20bpm; Pulse Ox 97% RA; Temp 98.6F; 79.38 kg; Height 5 ft. 4 hj in.; BMI: 30.0; Pain 10/10; hj
--- NOTE | 2018-11-14 21:15 | EDPHYS ---
Physician Documentation [facility] Name: Randy Briones Age: 48 yrs Sex: Male : 1970 Arrival Date: 11/14/2018 Time: 18:19 Bed 17 Private MD: Adrianna Michaels H ED Physician Bg Briones Historical: - Allergies: 11/14 18:35 Lisinopril; hj - PMHx: 18:35 Alcoholism; COPD; Hypertension; hj - Immunization history:: Adult Immunizations unknown. - Social history:: Smoking status: Patient uses tobacco products, Patient uses alcohol. - Ebola Screening: : Patient negative for fever greater than or equal to 101.5 degrees Fahrenheit, and additional compatible Ebola Virus Disease symptoms Patient denies exposure to infectious person Patient denies travel to an Ebola-affected area in the 21 days before illness onset. Exam: 19:42 ECG was reviewed by the Attending Physician. cp Vital Signs: 18:35 BP 159 / 91; Pulse 107; Resp 20; Temp 98.6; Pulse Ox 98% on R/A; Weight 79.38 kg; hj Height 5 ft. 4 in. (162.56 cm); Pain 10/10; 19:00 BP 170 / 78; Pulse 109; Resp 24; Temp 98.6; Pulse Ox 99% ; rr5 19:50 BP 172 / 75; Pulse 106; Resp 23; Pulse Ox 98% on Nebulizer Mask; rr5 20:00 BP 180 / 96; Pulse 106; Resp 24; Pulse Ox 97% ; rr5 20:30 BP 155 / 93; Pulse 93; Resp 24; Pulse Ox 99% ; rr5 21:00 BP 141 / 78; Pulse 95; Resp 22; Pulse Ox 96% ; rr5 21:30 BP 131 / 85; Pulse 113; Resp 20; Pulse Ox 96% ; rr5 22:00 BP 135 / 66; Pulse 94; Resp 20; Pulse Ox 99% on 2 lpm NC; rr5 23:00 BP 112 / 77; Pulse 84; Resp 20; Pulse Ox 98% on 2 lpm NC; rr5 11/15 00:00 BP 142 / 87; Pulse 78; Resp 19; Pulse Ox 99% on 2 lpm NC; Pain 0/10; rr5 01:00 BP 145 / 88; Pulse 81; Resp 20; Pulse Ox 97% on 2 lpm NC; rr5 02:00 BP 131 / 82; Pulse 91; Resp 20; Pulse Ox 99% on 2 lpm NC; rr5 02:00 rr5 11/14 18:35 Body Mass Index 30.04 (79.38 kg, 162.56 cm) hj 02:00 see [facility] for succeeding vital signs rr5 MDM: 11/14 18:44 Patient medically screened. cp 11/14 19:12 Order name: Basic Metabolic Panel; Complete Time: 20:21 cp 11/14 20:21 Interpretation: Normal except: K 3.4. cp 11/14 19:12 Order name: CBC with Diff; Complete Time: 20:02 cp 11/14 20:02 Interpretation: Normal except: RBC 4.32; MCV 101.1; PLT 181; MPV 7.0. cp 11/14 19:12 Order name: LFT's; Complete Time: 20:21 cp 11/14 19:12 Order name: Magnesium; Complete Time: 20:21 cp 11/14 19:12 Order name: NT PRO-BNP; Complete Time: 20:21 cp 11/14 19:12 Order name: PT-INR; Complete Time: 20:02 cp 11/14 19:12 Order name: Troponin (emerg Dept Use Only); Complete Time: 20:21 cp 11/14 19:12 Order name: Lipase; Complete Time: 20:21 cp 11/14 19:12 Order name: ETOH Level; Complete Time: 20:21 cp 11/14 20:21 Interpretation: Abnormal: ETOH < 3. cp 11/14 21:46 Order name: Urinalysis EDMS 11/14 21:46 Order name: CBC with Automated Diff EDMS 11/14 21:46 Order name: CBC with Automated Diff EDMS 11/14 21:46 Order name: Comprehensive Metabolic Panel EDMS 11/14 21:46 Order name: Comprehensive Metabolic Panel EDMS 11/14 19:12 Order name: EKG; Complete Time: 19:13 cp 11/14 19:12 Order name: Cardiac monitoring; Complete Time: 19:44 cp 11/14 19:12 Order name: EKG - Nurse/Tech; Complete Time: 19:44 cp 11/14 20:22 Order name: US Abdomen Limited: RUQ/epigastric cp 11/14 21:46 Order name: Regular EDMS 11/14 21:46 Order name: Magnesium EDMS 11/14 21:46 Order name: Magnesium EDMS 11/14 21:46 Order name: Phosphorus EDMS 11/14 21:46 Order name: Phosphorus EDMS 11/14 19:12 Order name: IV Saline Lock; Complete Time: 19:44 cp 11/14 19:12 Order name: Labs collected and sent; Complete Time: 19:44 cp 11/14 19:12 Order name: O2 Per Protocol; Complete Time: 19:44 cp 11/14 19:12 Order name: O2 Sat Monitoring; Complete Time: 19:44 cp EC:42 Rate is 94 beats/min. Rhythm is regular. OR interval is normal. QRS interval is normal. cp QT interval is normal. Interpreted by me. Reviewed by me. Administered Medications: 19:15 Drug: Xopenex (3) 1.25 mg Route: Inhalation; rr5 11/15 01:58 Follow up: Response: No adverse reaction rr5 11/14 19:30 Drug: Ativan 1 mg Route: IVP; Site: left forearm; rr5 11/15 01:59 Follow up: Response: No adverse reaction rr5 11/14 22:00 Drug: Banana Bag - (NS 0.9% 1000 ml, foLIC Acid 1 mg, Thiamine 100 mg, Multivitamin 1 rr5 amp) Route: IV; Rate: 125 ml/hr; Site: left forearm; 11/15 01:58 Follow up: Response: No adverse reaction; IV Status: Infusion continued upon admission; rr5 IV Intake: 400ml 11/14 22:01 Drug: Metoprolol 50 mg Route: PO; rr5 11/15 01:58 Follow up: Response: No adverse reaction rr5 11/14 22:01 Drug: Ativan 1 mg Route: IVP; Site: left forearm; rr5 11/15 01:57 Follow up: Response: No adverse reaction rr5 01:50 Drug: Ativan 2 mg Route: IVP; Site: left forearm; rr5 02:26 Follow up: Response: No adverse reaction rr5 Disposition: 11/16 07:28 Co-signature as Attending Physician, Bg Briones MD I agree with the assessment and akash plan of care. Disposition: 11/14/18 21:14 Hospitalization ordered by Satnam Martin for Inpatient Admission. Preliminary diagnosis is Alcohol dependence with withdrawal, unspecified. - Bed requested for [facility] ER HOLD. - Status is Inpatient Admission. tw2 - Condition is Stable. - Problem is new. - Symptoms have improved. UTI on Admission? No Addendum: 11/20/2018 08:00 Addendum: HPI: Patient is a 48 y/o male with PMHX significant for COPD. Patient returns c p to emergency department after being seen earlier today with complaints shortness of breath. Patient reports he left after feeling better and did not want to be admitted for alcohol withdrawals. Family of patient report daily drinking with last use of alcohol yesterday. 08:05 Addendum: ROS: Constitutional: negative for body aches, chills, fever, poor PO intake. c p Eyes: positive for for redness. negative for discharge, matting, visual disturbance. Cardiovascular: negative for chest pain, edema, palpitations. Respiratory: positive for cough, shortness of breath. Abdomen/GI: negative for abdominal pain, nausea, vomiting, and diarrhea, black/tarry stool, rectal bleeding. Neuro: positive for tremor. negative for headache, altered mental status. All other systems are negative.. 08:12 Addendum: . Addendum: Exam: Head/Face: Normocephalic, atraumatic. Eyes: Pupils equal c p round and reactive to light, extra-ocular motions intact, Lids and lashes normal. Right conjunctiva and sclera with mild injection. Right cornea within normal limits. Left eye normal. Periorbital areas with no swelling, redness, or edema. ENT: Nares patent. No nasal discharge, no septal abnormalities noted. Tympanic membranes are normal and external auditory canals are clear. Oropharynx with no redness, swelling, or masses, exudates, or evidence of obstruction, uvula midline. Mucous membranes moist. 08:15 Addendum: Chest/axilla: Normal chest wall appearance and motion. Nontender with no c p deformity. No lesions are appreciated. Constitutional: The patient appears in no acute distress, alert, awake, non-diaphoretic, non-toxic, well developed, well nourished. Cardiovascular: Rate: tachycardic, Rhythm: regular, Heart sounds: murmur, not appreciated, Edema: is not appreciated, JVD: is not appreciated. Respiratory: the patient does not display signs of respiratory distress, Respirations: normal, no use of accessory muscles, no retractions, labored breathing, is not present, intercostal retractions, are absent, Breath sounds: decreased breath sounds, that are mild, throughout, stridor, is not appreciated, wheezing: is not appreciated. Abdomen/GI: Inspection: abdomen appears normal, Bowel sounds: active, all quadrants, Palpation: abdomen is soft and non-tender, in all quadrants. Back: pain, is absent, ROM is normal. Skin: cellulitis, is not appreciated, no rash present. Neuro: orientation: to person, place \T\ time. Mentation: is normal, Cerebellar function: is grossly normal, Motor: strength is normal, Sensation: is normal, Abnormal movements: resting tremor, is located in the right hand and left hand. 08:20 Addendum: Labs, radiology studies, EKG reviewed. VSS. Will admit to hospital for c p continued treatment for alcohol withdrawal. Signatures: Dispatcher [employer] [facility] Poonam Miguel RN RN mw Anderson, Corey, MD MD cha Joaquin, Henry RN RN Bg Pro PA PA cp Wise, Tara, RN RN tw2 Joselito Hernandez RN RN rr5 Corrections: (The following items were deleted from the chart) 11/14 19:35 19:13 Chest Single View+[id number].[email or web address] ordered. [facility] EDTX 21:58 21:14 Hospitalization Ordered by Satnam Martin MD for Inpatient Admission. Preliminary mw diagnosis is Alcohol dependence with withdrawal, unspecified. Bed requested for Intensive Care Unit. Status is Inpatient Admission. Condition is Stable. Problem is new. Symptoms have improved. UTI on Admission? No. cp 11/15 16:17 11/14 21:58 11/14/2018 21:14 Hospitalization Ordered by Satnam Martin MD for Inpatient tw2 Admission. Preliminary diagnosis is Alcohol dependence with withdrawal, unspecified. Bed requested for [facility] ER HOLD. Status is Inpatient Admission. Condition is Stable. Problem is new. Symptoms have improved. UTI on Admission? No. mw
--- NOTE | 2018-11-14 21:39 | RAD REPORT ---
EXAM DESCRIPTION: US - Abdomen Exam Limited - 11/14/2018 9:31 pm CLINICAL HISTORY: upper abdomen pain COMPARISON: Abdomen Exam Limited dated 02/10/2018 FINDINGS: The gallbladder demonstrates no gallstones. No pericholecystic fluid or gallbladder wall t hickening. The common bile duct is normal measuring 3 mm. The liver demonstrates no findings of intrahepatic biliary dilatation. IMPRESSION: Unremarkable examination.
[2018-11-14] MEDS ORDERED: ONDANSETRON 4 MG/2 ML VIAL IV PRN (21:42)
[2018-11-14] MEDS ORDERED: ZOLPIDEM TARTRATE 5 MG TABLET PO PRN (21:42)
[2018-11-14] MEDS ORDERED: ACETAMINOPHEN 500 MG TAB PO PRN (21:42)
[2018-11-14] MEDS ORDERED: ALPRAZOLAM 0.25 MG TABLET PO PRN (21:42)
[2018-11-15 01:28] LABS: Urine Appearance CLEAR; Urine Bilirubin NEGATIVE (NEG); Urine Blood NEGATIVE (NEG); Urine Color YELLOW; Urine Glucose NEGATIVE (NEG); Urine Protein NEGATIVE (NEG); Urine Urobilinogen 0.2 mg/dL (0.2-1.0)
[2018-11-15 01:29] LABS: Urine Microscopic Reflex NO UMIC
[2018-11-15] MEDS: NA CHLORIDE 0.9% 1,000 ML IV SCH ×2 (02:30→11:20)
[2018-11-15] MEDS ORDERED: NA CHLORIDE 0.9% 1,000 ML ONE (02:49)
[2018-11-15 04:29] VITALS: O2SAT 97
[2018-11-15 05:25] LABS: Absolute Lymphocytes (CBC) 1.6 K/uL (0.7-4.9); Absolute Monocytes 0.5 K/uL (0.1-1.3); Basophils % 0.4 % (0-1.3); Eosinophils % 1.4 % (0-4.4); Hematocrit 43.1 % (39.6-49.0); Lymphocytes % 19.6 % (15.3-44.8); MPV 7.1 fL (7.6-11.3); Monocytes % 6.3 % (3.3-12.3); RBC Red Blood Cell Count 4.21 M/uL (4.33-5.43)
[2018-11-15 05:29] VITALS: TEMP 98
[2018-11-15 05:43] LABS: ALT/SGPT 36 U/L (12-78); AST/SGOT 25 U/L (15-37); Albumin 3.6 g/dL (3.4-5.0); Alkaline Phosphatase 65 U/L (45-117); BUN Blood Urea Nitrogen 7 mg/dL (7-18); Bicarbonate 28 mmol/L (21-32); Bilirubin Total 0.9 mg/dL (0.2-1.0); Glucose Level 77 mg/dL (74-106); Phosphorus 3.3 mg/dL (2.5-4.9); Potassium 3.4 mmol/L (3.5-5.1); Protein, Total 6.8 g/dL (6.4-8.2); Sodium Level 138 mmol/L (136-145)
[2018-11-15] MEDS ORDERED: METOPROLOL TAR 25 MG TAB PO SCH (06:00)
[2018-11-15] MEDS: chlordiazePOXIDE HCl 25 MG CAP PO SCH ×3 (06:00→11:44)
[2018-11-15] MEDS ORDERED: METOPROLOL TAR 50 MG TAB ONE (06:26)
[2018-11-15] MEDS ORDERED: chlordiazePOXIDE HCl 5 MG CAP PO ONE ×2 (06:26→11:50)
[2018-11-15] MEDS: KCL 20 MEQ/100 mL IVPB 20 MEQ/100 ML BAG IV SCH ×2 (07:00→10:50)
[2018-11-15 07:04] VITALS: BMI 13.6
--- NOTE | 2018-11-15 07:42 | P.HP ---
Certification for Inpatient Patient admitted to: Inpatient With expected LOS: >2 Midnights Patient will require the following post-hospital care: None Practitioner: I am a practitioner with admitting privileges, knowledge of patient current condition, hospital course, and medical plan of care. Services: Services provided to patient in accordance with Admission requirements found in Title 42 Section 412.3 of the Code of Federal Regulations Patient History Date of Service: 11/14/18 Reason for admission: Patient is a 48-year-old gentleman who came in with delirium tremens History of Present Illness: Patient is a 48-year-old gentleman who came into the hospital with delirium tremens. Patient has been a heavy drinker for the last 6 months. He lost his job & since that time he has been drinking about 24 beers a day. Around the new year, the family-patient and his -decided that he needed to stop drinking and smoking. He decided to stop cold turkey. He has not had tobacco or alcohol over the last 24 hr. He states that he has been having tremors and shakes. He decided to come into the hospital for evaluation. He was initially admitted earlier today but left against medical advice. He came back into the hospital as the symptoms were worsening. He was started on Ativan along with a banana bag. His blood pressure and heart rate were elevated. Gave a low-dose beta-birgit. Currently he is feeling much better and clinically his symptoms seemed to be improved. Will continue him on Librium along with a banana bag and monitor him closely and if he does well possible discharge home in 48-72 hr. 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 - Family History Mother Medical History: Diabetes, Cancer Notes: colon cancer Father Medical History: Lung disease Notes: COPD - Social History Smoking Status: Current every day smoker Alcohol use: Yes CD- Drugs: No Caffeine use: Yes Place of Residence: Home Review of Systems 10-point ROS is otherwise unremarkable Physical Examination - Vital Signs Temperature: 98 F Blood Pressure: 126/71 Pulse: 90 Respirations: 17 Pulse Ox (%): 96 - Physical Exam General: Alert, In no apparent distress, Oriented x3 HEENT: Atraumatic, PERRLA, Mucous membr. moist/pink, EOMI, Sclerae nonicteric Neck: Supple, 2+ carotid pulse no bruit, No LAD, Without JVD or thyroid abnormality Respiratory: Clear to auscultation bilaterally, Normal air movement Cardiovascular: Regular rate/rhythm, Normal S1 S2, No murmurs Gastrointestinal: Normal bowel sounds, Soft and benign, Non-distended, No tenderness Musculoskeletal: No clubbing, No swelling, No tenderness Integumentary: No rashes Neurological: Normal gait, Normal speech, Normal strength at 5/5 x4 extr, Normal tone, Sensation intact, Cranial nerves 3-12 intact, Normal affect Lymphatics: No axilla or inguinal lymphadenopathy - Studies Laboratory Data (last 24 hrs) 11/14/18 19:35: PT 11.2, INR 0.95 11/14/18 19:35: WBC 9.4, Hgb 14.9, Hct 43.7, Plt Count 181 D 11/14/18 19:35: Sodium 136, Potassium 3.4 L, BUN 8, Creatinine 0.59, Glucose 84 , Magnesium 1.9, Total Bilirubin 0.7, AST 37, ALT 43, Alkaline Phosphatase 76, Lipase 196 Assessment & Plan - Problems (Diagnosis) (1) Alcohol abuse Current Visit: Yes Status: Acute (2) Delirium tremens Current Visit: Yes Status: Acute (3) Tremors of nervous system Current Visit: No Status: Acute (4) COPD (chronic obstructive pulmonary disease) Onset Date: 02/11/18 Current Visit: No Status: Acute Qualifiers: COPD type: unspecified COPD Qualified Code(s): J44.9 - Chronic obstructive pulmonary disease, unspecified (5) HTN (hypertension) Onset Date: 02/11/18 Current Visit: No Status: Acute Qualifiers: Hypertension type: essential hypertension (6) Tobacco abuse Onset Date: 02/11/18 Current Visit: No Status: Acute - Plan Plan: 1. Benzodiazepine 2. Banana bag 3. Blood pressure control 4. IV hydration 5. Monitor electrolytes 6. Neuro checks q.4 hr 7. GI and DVT prophylaxis Discharge Plan: Home Plan to discharge in: Greater than 2 days - Advance Directives Does patient have a Living Will: No Does patient have a Durable POA for Healthcare: No - Code Status/Comfort Care Code Status Assessed: Yes Code Status: Full Code Critical Care: No Time Spent Managing PTS Care (In Minutes): 50
[2018-11-15] MEDS ORDERED: INFLUENZA VACCINE (for 3y+) 0.5 ML DOSE IMVAC ONE ×2 (08:00→09:10)
[2018-11-15] MEDS ORDERED: ENOXAPARIN 40 MG/0.4 ML SQ ONE (08:52)
[2018-11-15] MEDS ORDERED: predniSONE 20 MG TAB ONE (08:52)
[2018-11-15] MEDS ORDERED: ENOXAPARIN 40 MG/0.4 ML SQ SCH (09:00)
[2018-11-15] MEDS ORDERED: predniSONE 20 MG TAB PO SCH (09:00)
[2018-11-15] MEDS ORDERED: FOLIC ACID 1 MG, MULTIVITAMINS INJ 10 ML, THIAMINE HCL 100 MG in NA CHLORIDE 0.9% 1,000 ML IV SCH (09:00)
[2018-11-15] MEDS ORDERED: KCL 20 MEQ/100 mL IVPB 20 MEQ/100 ML BAG IV ONE (11:02)
[2018-11-15] MEDS ORDERED: NA CHLORIDE 0.9% 1,000 ML IV ONE (11:45)
[2018-11-15 15:17] VITALS: BP 122/79
--- NOTE | 2018-11-15 16:37 | P.SSS ---
Patient History Date of Service: 11/15/18 Reason for admission: Patient is a 48-year-old gentleman who came in with delirium tremens History of Present Illness: Patient is a 48-year-old gentleman who came into the hospital with delirium tremens. Patient has been a heavy drinker for the last 6 months. He lost his job & since that time he has been drinking about 24 beers a day. Around the new year, the family-patient and his -decided that he needed to stop drinking and smoking. He decided to stop cold turkey. He has not had tobacco or alcohol over the last 24 hr. He states that he has been having tremors and shakes. He decided to come into the hospital for evaluation. He was initially admitted earlier today but left against medical advice. He came back into the hospital as the symptoms were worsening. He was started on Ativan along with a banana bag. His blood pressure and heart rate were elevated. Gave a low-dose beta-birgit. Currently he is feeling much better and clinically his symptoms seemed to be improved. Will continue him on Librium along with a banana bag and monitor him closely and if he does well possible discharge home in 48-72 hr. Allergies Lisinopril Adverse Reaction (Mild, Uncoded 02/11/18 13:05) Shortness of breath Home Medications: Amlodipine [Norvasc*] 1 tab PO BEDTIME 07/19/18 Thiamine Mononitrate [Vitamin B-1] 1 tab PO BID 07/19/18 predniSONE [Prednisone*] 20 mg PO DAILY 09/06/18 Albuterol Neb [Proventil 0.083% Neb Soln] 2.5 mg NEB [id number] PRN amp 09/07/18 Tiotropium [place] [Spiriva] 18 mcg IH DAILY #30 cap.w.dev 10/20/18 Folic Acid 1 mg PO DAILY #30 tablet 11/15/18 chlordiazePOXIDE HCl [Librium*] 25 mg PO Q8H #60 cap 11/15/18 - Past Medical/Surgical History Has patient received pneumonia vaccine in the past: Yes Diabetic: No -: Hypertension -: COPD -: Tobacco abuse -: Alcohol abuse -: GERD -: Obesity -: 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 - Family History Mother -: Diabetes, Cancer Notes: colon cancer Father -: Lung disease Notes: COPD - Social History Smoking Status: Current every day smoker Alcohol use: Yes CD- Drugs: No Caffeine use: Yes Place of Residence: Home Review of Systems 10-point ROS is otherwise unremarkable Physical Examination - Vital Signs Temperature: 98 F Blood Pressure: 122/79 Pulse: 67 Respirations: 17 Pulse Ox (%): 97 - Physical Exam General: Alert, In no apparent distress HEENT: Atraumatic, PERRLA, Mucous membr. moist/pink, EOMI, Sclerae nonicteric Neck: Supple, 2+ carotid pulse no bruit, No LAD, Without JVD or thyroid abnormality Respiratory: Clear to auscultation bilaterally, Normal air movement Cardiovascular: Regular rate/rhythm, Normal S1 S2 Gastrointestinal: Normal bowel sounds, No tenderness Musculoskeletal: No tenderness Integumentary: No rashes Neurological: Normal gait, Normal speech, Normal strength at 5/5 x4 extr, Normal tone, Normal affect Lymphatics: No axilla or inguinal lymphadenopathy - Studies Laboratory Data (last 24 hrs) 11/14/18 19:35: PT 11.2, INR 0.95 11/14/18 19:35: WBC 9.4, Hgb 14.9, Hct 43.7, Plt Count 181 D 11/14/18 19:35: Sodium 136, Potassium 3.4 L, BUN 8, Creatinine 0.59, Glucose 84 , Magnesium 1.9, Total Bilirubin 0.7, AST 37, ALT 43, Alkaline Phosphatase 76, Lipase 196 - Diagnosis (Problem(s)) (1) Alcohol dependence with withdrawal Onset Date: 02/11/18 Status: Resolved Qualifiers: Complication of substance-induced condition: uncomplicated Qualified Code(s ): F10.230 - Alcohol dependence with withdrawal, uncomplicated (2) COPD (chronic obstructive pulmonary disease) Onset Date: 02/11/18 Status: Chronic Qualifiers: COPD type: unspecified COPD Qualified Code(s): J44.9 - Chronic obstructive pulmonary disease, unspecified (3) HTN (hypertension) Onset Date: 02/11/18 Status: Chronic Qualifiers: Hypertension type: essential hypertension (4) Tobacco abuse Onset Date: 02/11/18 Status: Chronic Treatment Summary: Overall during the hospital stay patient remained stable Patient was initially admitted to the hospital for alcohol withdrawal as he stops drinking alcohol cold . Patient initially was just tachycardic. Was started on Librium here in the hospital. Along with banana bag as well. Patient had marked improvement in his symptoms. Patient insisted on discharging home. States that he will follow up with his primary care provider. Patient's vital signs were within normal limits and he was doing hemodynamically well with no alcohol withdrawal symptoms. Patient then was discharged home under stable condition to continue taking his Librium 25 mg q.8 hr for 10 days and Librium 25 mg q.12 hr for 10 days then after take 25 mg daily. Patient was asked to follow up with primary care provider in about 1-2 days if there is any worsening of symptoms or come back to the ER. Patient demonstrate understanding and thus was discharged home under stable condition. - Disposition Disposition: ROUTINE DISCHARGE Condition: GOOD Patient Discharge Instructions: Please F.u with Dr Michaels in 1 to 2 days post discharge. New medication. Librium with the following taper. Take 25mg q8h for 10 days. Take 25mg q12h for 10 days. Take 25mg daily for 10 days. Folic Acid and Thiamine 100mg BID Diet: Regular Activity: Ad lenin
[2018-11-15] MEDS ORDERED: ENOXAPARIN 30 MG/0.3 ML SQ SCH (17:00)
[2018-11-15] MEDS ORDERED: AMLODIPINE 10 MG TAB PO SCH (21:00)
== END 2018-11-15 16:16 | disposition home or self-care (01) | DRG 897 ==
LOC: ER 18:18 → ERHOLD 22:02
PROVIDERS: ADMIT Hospitalist; ATTEND Family Medicine
DX: F10.231 Alcohol dependence with withdrawal delirium (principal); R00.0 Tachycardia, unspecified; I10 Essential (primary) hypertension; J44.9 Chronic obstructive pulmonary disease, unspecified; K21.9 Gastro-esophageal reflux disease without esophagitis; E66.9 Obesity, unspecified; F17.200 Nicotine dependence, unspecified, uncomplicated; Z23 Encounter for immunization
CPT/HCPCS: 36415; 76705; 80048; 80053; 80076; 80320; 81003; 83690; 83735; 83880; 84100; 84484; 85025; 85610; 96365; 96366; 96375; 99285; G0008; J1650; J3411; J7030; J7512; Q2035

== ENCOUNTER → 2018-11-14 | Emergency (ER) | payer SELFPAY ==
[~2018-11-14] MED LIST: DIAZEPAM 10 MG/2 ML INJ SYRINGE ONE; FOLIC ACID 1 MG, MULTIVITAMINS INJ 10 ML, THIAMINE HCL 100 MG in NA CHLORIDE 0.9% 1,000 ML IV SCH; FOLIC ACID 5 MG/ML VIAL ONE; IPRATROPIUM BROM 0.5MG/2.5ML ONE; LEVALBUTEROL 1.25 MG/3 ML NEB ONE; LORazepam 2 MG/ML VIAL ONE; METOPROLOL TAR 50 MG TAB ONE; MULTIVITAMINS 10 ML VIAL (INJ) IV ONE; NA CHLORIDE 0.9% 0 ML IV ONE; NA CHLORIDE 0.9% 1,000 ML ONE; THIAMINE 200 MG/2 ML INJ ONE; chlordiazePOXIDE HCl 5 MG CAP PO ONE
[2018-11-14 11:34] LABS: Absolute Lymphocytes (CBC) 1.3 K/uL (0.7-4.9); Absolute Monocytes 0.5 K/uL (0.1-1.3); Absolute Neutrophil 8.7 K/uL (1.8-8.0); Basophils % 0.7 % (0-1.3); Eosinophils % 0.4 % (0-4.4); Hematocrit 47.8 % (39.6-49.0); Lymphocytes % 12.2 % (15.3-44.8); MPV 7.5 fL (7.6-11.3); Monocytes % 4.8 % (3.3-12.3); RBC Red Blood Cell Count 4.73 M/uL (4.33-5.43)
[2018-11-14 11:35] LABS: Protime INR 0.92
[2018-11-14 12:04] LABS: ALT/SGPT 51 U/L (12-78); AST/SGOT 52 U/L (15-37); Albumin 4.5 g/dL (3.4-5.0); Alkaline Phosphatase 87 U/L (45-117); BUN Blood Urea Nitrogen 10 mg/dL (7-18); Bicarbonate 23 mmol/L (21-32); Bilirubin Direct 0.2 mg/dL (0-0.2); Bilirubin Total 0.7 mg/dL (0.2-1.0); Glucose Level 117 mg/dL (74-106); Magnesium 1.9 mg/dL (1.8-2.4); NT PRO-BNP 25 pg/mL (<125); Potassium 4.1 mmol/L (3.5-5.1); Protein, Total 8.3 g/dL (6.4-8.2); Sodium Level 136 mmol/L (136-145); Troponin (Emerg Dept Use Only) < 0.02 ng/mL (0.0-0.045)
--- NOTE | 2018-11-14 12:06 | RAD REPORT ---
EXAM DESCRIPTION: RAD - Chest Single View - 11/14/2018 11:45 am CLINICAL HISTORY: DYSPNEA Chest pain. COMPARISON: Chest Single View dated 10/18/2018; Chest Single View dated 09/06/2018; Chest Pa And Lat (2 Views) dated 07/20/2018; Chest Single View dated 07/19/2018 FINDINGS: Portable technique limits examination quality. The lungs are mildly emphysematous but clear. The heart is normal in size. No displaced fractures. IMPRESSION: Mild COPD.
--- NOTE | 2018-11-14 13:54 | ER ---
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 Transition of care: aj patient was not received from another setting of care. Onset of symptoms was November 14, 2018. Risk Assessment: Do you want to hurt yourself or someone else? Patient reports no desire to harm self or others. Initial Sepsis Screen: Does the patient meet any 2 criteria? RR > 20 per min. HR > 90 bpm. Does the patient have a suspected source of infection? No. Patient's initial sepsis screen is negative. 11:08 Method Of Arrival: Ambulatory 11:08 Acuity: CANDACE 2 11:08 Care prior to arrival: None. Triage Assessment: 11:12 General: Appears in no apparent distress. comfortable, Behavior is calm, cooperative, aj appropriate for age. Pain: Denies pain. Neuro: Level of Consciousness is awake, alert, obeys commands, Oriented to person, place, time, situation. Respiratory: Reports shortness of breath at rest on exertion cough that is non-productive, Airway is patent Respiratory effort is labored, with nasal flaring, Respiratory pattern is tachypnea Onset: The symptoms/episode began/occurred suddenly, the patient has moderate shortness of breath. Derm: Skin is intact, is healthy with good turgor, Skin is pink, warm \T\ dry. normal. Historical: - Allergies: 11:12 Lisinopril; aj - Home Meds: 11:12 Advair Diskus 250-50 mcg/dose Inhl dsdv 1 puff 2 times per day [Active]; albuterol aj sulfate 2.5 mg /3 mL (0.083 %) Inhl nebu 3 mL 3 times per day [Active]; gabapentin 100 mg Oral cap 3 caps 3 times per day [Active]; Nexium 40 mg Oral cpDR 1 cap 2 times per day [Active]; montelukast 10 mg Oral tab 1 tab once daily [Active]; Norvasc 10 mg Oral tab once daily [Active]; Spiriva with HandiHaler inhalation [Active]; Triamterene-Hydrochlorothiazid Oral once daily [Active]; - PMHx: 11:12 Alcoholism; COPD; Hypertension; aj - Immunization history:: Adult Immunizations up to date. - Social history:: Smoking status: Patient uses tobacco products, smokes one pack cigarettes per day. Patient uses alcohol, patient/guardian reports chronic longstanding heavy alcohol consumption. - Ebola Screening: : Patient negative for fever greater than or equal to 101.5 degrees Fahrenheit, and additional compatible Ebola Virus Disease symptoms Patient denies exposure to infectious person Patient denies travel to an Ebola-affected area in the 21 days before illness onset No symptoms or risks identified at this time. Screenin:15 Abuse screen: Denies threats or abuse. Denies injuries from another. Nutritional aj screening: No deficits noted. Tuberculosis screening: No symptoms or risk factors identified. Fall Risk None identified. Assessment: 12:14 Reassessment: See triage. aj 13:30 Reassessment: Patient appears in no apparent distress at this time. Patient and/or aj family updated on plan of care and expected duration. Pain level reassessed. Patient is alert, oriented x 3, equal unlabored respirations, skin warm/dry/pink. Tremors have decreased with IV medication. Neuro: Level of Consciousness is awake, alert, obeys commands, Oriented to person, place, time, situation. Cardiovascular: Capillary refill < 3 seconds Rhythm is regular. Respiratory: Airway is patent Respiratory effort is labored, Respiratory pattern is tachypnea Breath sounds with crackles bilaterally. 16:08 Reassessment: Patient requested to leave. Dr Altamirano notified. Patient educated about aj risks of leaving AMA, chose to leave AMA. Form signed. Vital Signs: 11:12 BP 162 / 99; Pulse 130; Resp 21; Temp 98.3(O); Pulse Ox 97% on R/A; Weight 113.4 kg; aj Height 6 ft. 0 in. (182.88 cm); 12:16 BP 148 / 87; Pulse 129; Resp 24; Pulse Ox 96% on 3 lpm NC; aj 16:07 BP 151 / 103; Pulse 133; Resp 28; Pulse Ox 100% on 3 lpm NC; aj 11:12 Body Mass Index 33.91 (113.40 kg, 182.88 cm) aj ED Course: 10:53 Patient arrived in ED. mr 10:53 Adrianna Michaels DO is Private Physician. mr 10:57 Jarvis Mcelroy PA is PHCP. jr8 10:57 Bg Briones MD is Attending Physician. jr8 11:08 Leah Coronado, RN is Primary Nurse. aj 11:10 Triage completed. aj 11:11 Inserted saline lock: 20 gauge in right antecubital area, using aseptic technique. bp Blood collected. 11:12 Arm band placed on left wrist. aj 11:44 XRAY Chest (1 view) In Process Unspecified. EDMS 12:15 Patient has correct armband on for positive identification. aj 13:53 Ara Altamirano MD is Hospitalizing Provider. jr8 14:31 CT completed. Patient tolerated procedure well. Patient moved back from CT. kw1 14:33 CT Abd/Pelvis - W/Contrast In Process Unspecified. EDMS 16:10 No provider procedures requiring assistance completed. IV discontinued, intact, aj bleeding controlled, No redness/swelling at site. Pressure dressing applied. Administered Medications: 11:13 Drug: Xopenex 1.25 mg Route: Inhalation; bp 11:15 Drug: NS 0.9% 1000 ml Route: IV; Rate: 1000 ml; Site: right antecubital; bp 12:04 Drug: Valium 5 mg Route: IVP; Site: left antecubital; aj 12:50 Follow up: Response: No adverse reaction; No change in condition bp 12:30 Drug: Banana Bag - (NS 0.9% 1000 ml, foLIC Acid 1 mg, Thiamine 100 mg, Multivitamin 1 aj amp) Route: IV; Rate: calculated rate; Site: right antecubital; 12:50 Drug: Valium 10 mg Route: IVP; Site: right antecubital; bp 15:30 Follow up: Response: Marked relief of symptoms; Anxiety decreased aj Outcome: 13:54 Decision to Hospitalize by Provider. jr8 16:11 AMA AMA form signed aj 16:11 critical 16:11 Instructed on Risks of leaving AMA, including injury or . Patient declined to stay 16:12 Patient left the ED. aj Signatures: Dispatcher [employer] Leah Anna, BRIGETTE RN Bianca Tinoco mr Jarvis Mcelroy PA PA jr8 Chuck Dover RN RN Mariely Gutierrez kw1 Corrections: (The following items were deleted from the chart) 11:53 11:12 BP 162 / 99; Pulse 130bpm; Resp 21bpm; Pulse Ox 97% RA; 113.4 kg; Height 6 ft. 0 aj in.; BMI: 33.9; aj
--- NOTE | 2018-11-14 13:55 | EDPHYS ---
Physician Documentation [facility] Name: Randy Briones Age: 48 yrs Sex: Male : 1970 Arrival Date: 11/14/2018 Time: 10:53 Bed 4 Private MD: Adrianna Michaels H ED Physician AnselmoBg HPI: 11/14 12:06 This 48 yrs old Male presents to ER via Ambulatory with complaints of jr8 Breathing Difficulty. 12:06 The patient has shortness of breath at rest. Onset: The symptoms/episode began/occurred jr8 acutely, today. Duration: The symptoms are continuous. The patient's shortness of breath is aggravated by talking, walking. Associated signs and symptoms: The patient has no apparent associated signs or symptoms. Severity of symptoms: At their worst the symptoms were moderate in the emergency department the symptoms are unchanged. The patient has experienced similar episodes in the past, several times. The patient has not recently seen a physician. History of alcohol abuse in past. Stated that he had 3 beers last night. Woke up with shortness of breath this morning. History of COPD . Historical: - Allergies: 11:12 Lisinopril; aj - Home Meds: 11:12 Advair Diskus 250-50 mcg/dose Inhl dsdv 1 puff 2 times per day [Active]; albuterol aj sulfate 2.5 mg /3 mL (0.083 %) Inhl nebu 3 mL 3 times per day [Active]; gabapentin 100 mg Oral cap 3 caps 3 times per day [Active]; Nexium 40 mg Oral cpDR 1 cap 2 times per day [Active]; montelukast 10 mg Oral tab 1 tab once daily [Active]; Norvasc 10 mg Oral tab once daily [Active]; Spiriva with HandiHaler inhalation [Active]; Triamterene-Hydrochlorothiazid Oral once daily [Active]; - PMHx: 11:12 Alcoholism; COPD; Hypertension; aj - Immunization history:: Adult Immunizations up to date. - Social history:: Smoking status: Patient uses tobacco products, smokes one pack cigarettes per day. Patient uses alcohol, patient/guardian reports chronic longstanding heavy alcohol consumption. - Ebola Screening: : Patient negative for fever greater than or equal to 101.5 degrees Fahrenheit, and additional compatible Ebola Virus Disease symptoms Patient denies exposure to infectious person Patient denies travel to an Ebola-affected area in the 21 days before illness onset No symptoms or risks identified at this time. ROS: 12:06 Eyes: Negative for injury, pain, redness, and discharge, ENT: Negative for injury, jr8 pain, and discharge, Neck: Negative for injury, pain, and swelling, Cardiovascular: Negative for chest pain, palpitations, and edema, Abdomen/GI: Negative for abdominal pain, nausea, vomiting, diarrhea, and constipation, Back: Negative for injury and pain, MS/Extremity: Negative for injury and deformity, Skin: Negative for injury, rash, and discoloration, Neuro: Negative for headache, weakness, numbness, tingling, and seizure. 12:06 Respiratory: Positive for shortness of breath. Exam: 12:06 Eyes: Pupils equal round and reactive to light, extra-ocular motions intact. Lids and jr8 lashes normal. Conjunctiva and sclera are non-icteric and not injected. Cornea within normal limits. Periorbital areas with no swelling, redness, or edema. ENT: Nares patent. No nasal discharge, no septal abnormalities noted. Tympanic membranes are normal and external auditory canals are clear. Oropharynx with no redness, swelling, or masses, exudates, or evidence of obstruction, uvula midline. Mucous membranes moist. Neck: Trachea midline, no thyromegaly or masses palpated, and no cervical lymphadenopathy. Supple, full range of motion without nuchal rigidity, or vertebral point tenderness. No Meningismus. Abdomen/GI: Soft, non-tender, with normal bowel sounds. No distension or tympany. No guarding or rebound. No evidence of tenderness throughout. Back: No spinal tenderness. No costovertebral tenderness. Full range of motion. Skin: Warm, dry with normal turgor. Normal color with no rashes, no lesions, and no evidence of cellulitis. MS/ Extremity: Pulses equal, no cyanosis. Neurovascular intact. Full, normal range of motion. Neuro: Awake and alert, GCS 15, oriented to person, place, time, and situation. Cranial nerves II-XII grossly intact. Motor strength 5/5 in all extremities. Sensory grossly intact. Cerebellar exam normal. Normal gait. 12:06 Cardiovascular: Rate: tachycardic, Rhythm: regular, Pulses: Pulses are 2+ in right radial artery and left radial artery. Heart sounds: normal, normal S1and S2, no S3 or S4, no murmur, no rub, no gallop, Edema: is not appreciated. 12:06 Respiratory: the patient does not display signs of respiratory distress, Respirations: tachypnea, that is mild, Breath sounds: wheezing: expiratory that is mild, is heard diffusely. Vital Signs: 11:12 BP 162 / 99; Pulse 130; Resp 21; Temp 98.3(O); Pulse Ox 97% on R/A; Weight 113.4 kg; aj Height 6 ft. 0 in. (182.88 cm); 12:16 BP 148 / 87; Pulse 129; Resp 24; Pulse Ox 96% on 3 lpm NC; aj 16:07 BP 151 / 103; Pulse 133; Resp 28; Pulse Ox 100% on 3 lpm NC; aj 11:12 Body Mass Index 33.91 (113.40 kg, 182.88 cm) aj MDM: 10:57 Patient medically screened. [facility] 13:50 Data reviewed: vital signs, nurses notes, lab test result(s), EKG, radiologic studies, jr CT scan, plain films, and as a result, I will admit patient. Data interpreted: Pulse oximetry: on room air is 96 %. Interpretation: acceptable. Counseling: I had a detailed discussion with the patient and/or guardian regarding: the historical points, exam findings, and any diagnostic results supporting the discharge/admit diagnosis, lab results, radiology results, the need for further work-up and treatment in the hospital. Physician consultation: Ara Altamirano MD was called at 13:51, was contacted at 13:51, regarding admission, to the ICU, and will see patient in ED. 11/14 10:57 Order name: Basic Metabolic Panel; Complete Time: 12:06 11/14 10:57 Order name: CBC with Diff; Complete Time: 11:38 11/14 10:57 Order name: LFT's; Complete Time: 12:06 11/14 10:57 Order name: Magnesium; Complete Time: 12:06 11/14 10:57 Order name: NT PRO-BNP; Complete Time: 12:06 11/14 10:57 Order name: PT-INR; Complete Time: 11:38 11/14 10:57 Order name: Troponin (emerg Dept Use Only); Complete Time: 12:06 11/14 10:57 Order name: XRAY Chest (1 view); Complete Time: 12:09 11/14 10:57 Order name: ETOH Level; Complete Time: 12:06 11/14 13:10 Order name: UDS; Complete Time: 14:02 11/14 13:47 Order name: Urine Dipstick--Ancillary (enter results); Complete Time: 15:43 ag 11/14 13:50 Order name: CT Abd/Pelvis - W/Contrast; Complete Time: 14:43 11/14 10:57 Order name: EKG; Complete Time: 10:59 11/14 10:57 Order name: Cardiac monitoring; Complete Time: 11:06 11/14 10:57 Order name: EKG - Nurse/Tech; Complete Time: 11:06 11/14 10:57 Order name: IV Saline Lock; Complete Time: 11:13 11/14 10:57 Order name: Labs collected and sent; Complete Time: 11:13 11/14 10:57 Order name: O2 Per Protocol; Complete Time: 11:06 11/14 10:57 Order name: O2 Sat Monitoring; Complete Time: 11: Administered Medications: 11:13 Drug: Xopenex 1.25 mg Route: Inhalation; bp 11:15 Drug: NS 0.9% 1000 ml Route: IV; Rate: 1000 ml; Site: right antecubital; bp 12:04 Drug: Valium 5 mg Route: IVP; Site: left antecubital; aj 12:50 Follow up: Response: No adverse reaction; No change in condition bp 12:30 Drug: Banana Bag - (NS 0.9% 1000 ml, foLIC Acid 1 mg, Thiamine 100 mg, Multivitamin 1 aj amp) Route: IV; Rate: calculated rate; Site: right antecubital; 12:50 Drug: Valium 10 mg Route: IVP; Site: right antecubital; bp 15:30 Follow up: Response: Marked relief of symptoms; Anxiety decreased aj Disposition: 11/15 07:15 Co-signature as Attending Physician, Bg Briones MD I agree with the assessment and akash plan of care. Disposition: 11/14/18 13:54 Hospitalization ordered by Ara Altamirano for Inpatient Admission. 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 - Bed requested for Intensive Care Unit. - Status is Inpatient Admission. aj - Condition is Fair. - Problem is new. - Symptoms have improved. UTI on Admission? No Signatures: Dispatcher [employer] EDLeah Nava RN RN Bg Dunn MD MD cha Roszak, Josh, PA PA jr8 Chuck Dover RN RN bp Corrections: (The following items were deleted from the chart) 11/14 16:12 13:54 Hospitalization Ordered by Ara Altamirano MD for Inpatient Admission. 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 Bed requested for Intensive Care Unit. Status is Inpatient Admission. Condition is Fair. Problem is new. Symptoms have improved. UTI on Admission? No. jr8
[2018-11-14 13:57] LABS: Barbiturates NEGATIVE (NEGATIVE); Benzodiazepines NEGATIVE (NEGATIVE); Cocaine NEGATIVE (NEGATIVE); METHAMPHETAM NEGATIVE (NEGATIVE); Methadone NEGATIVE (NEGATIVE); Opiates NEGATIVE (NEGATIVE); Phencyclidine NEGATIVE (NEGATIVE); THC Cannibis NEGATIVE (NEGATIVE)
--- NOTE | 2018-11-14 14:41 | RAD REPORT ---
EXAM DESCRIPTION: CTAbdomen Pelvis W Contrast - 11/14/2018 2:32 pm CLINICAL HISTORY: Abdominal pain. iv only;Abdominal distention COMPARISON: Abdomen Pelvis W Contrast dated 01/05/2017; CT ABD PELVIS W CONTRAST dated 04/17/2013; CT ABD PELVIS W CONTRAST dated 04/11/2013; CT ABD PELVIS W CONTRAST dated 12/27/2007 TECHNIQUE: Biphasic CT imaging of the abdomen and pelvis was performed with 100 ml non-ionic IV cont rast. All CT scans are performed using dose optimization technique as appropriate and may include automated exposure control or mA/KV adjustment according to patient size. FINDINGS: Linear subsegmental atelectasis is present in both lung bases. Prominent fatty liver is noted. The spleen, adrenal glands, pancreas and right kidney are within norm al limits. Tiny calculus inferior left kidney without hydronephrosis. No bowel obstruction, free air, free fluid or abscess. The appendix is normal. No evidence of signi ficant lymphadenopathy. Mild lumbosacral degenerative changes. IMPRESSION: No acute intra-abdominal or pelvic finding. Fatty liver.
[2018-11-14 15:30] LABS: Urine Blood NEGATIVE (NEG); Urine Glucose NEGATIVE (NEG); Urine Protein 2+ (NEG); Urine Specific Gravity >1.030 (1.005-1.030)
[2018-11-14 16:19] VITALS: BP 151/103; O2SAT 100
[2018-11-14 16:27] VITALS: TEMP 99
--- NOTE | 2018-11-14 19:20 | P.HP ---
Certification for Inpatient Patient admitted to: Inpatient With expected LOS: >2 Midnights Practitioner: I am a practitioner with admitting privileges, knowledge of patient current condition, hospital course, and medical plan of care. Services: Services provided to patient in accordance with Admission requirements found in Title 42 Section 412.3 of the Code of Federal Regulations Patient History Date of Service: 11/14/18 Reason for admission: Tachycardia, tremors History of Present Illness: This is a 48 year old male with hx of COPD, heavy ETOH usage, HTN admitted for tachycardia and tremors. Per patient, he was in his normal health yesterday when he had a 6 pack of beer as he does everyday. This morning, he woke up with tremors, shakiness and feeling jittery. Per patient, he has been on chronic steroids for about 7-8 months for COPD. He came to the ED. In the ED, he was found to ave tachycardia up to 150s and he was noted to have tremors and shakiness. At the time of my exam, patient was still tachycardic to 130s, though he was AAOx3. He was in mild-moderate distress. 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 - Family History Mother -: Diabetes, Cancer Notes: colon cancer Father -: Lung disease - Social History Alcohol use: Yes CD- Drugs: No Caffeine use: Yes Review of Systems 10-point ROS is otherwise unremarkable Physical Examination - Vital Signs Temperature: 99.0 F Blood Pressure: 151/103 Pulse: 133 Respirations: 28 - Physical Exam General: Alert, Oriented x3, Moderate distress HEENT: Mucous membr. moist/pink Neck: Supple, 2+ carotid pulse no bruit, JVD not distended Respiratory: Normal air movement, Crackles/rales Cardiovascular: Irregular heart rate/rhythm (Tachycardic, NSR) Gastrointestinal: Normal bowel sounds, No tenderness, Distended Musculoskeletal: Erythema (on bilateral arms, though not warm to touch. Reddish discoloration noted on bilateral arms. ) Integumentary: Erythema Neurological: Other (Tremors noted, though other neurological exam non focal. ) - Studies Laboratory Data (last 24 hrs) 11/14/18 11:05: PT 10.8, INR 0.92 11/14/18 11:05: WBC 10.6, Hgb 16.4, Hct 47.8, Plt Count 241 11/14/18 11:05: Sodium 136, Potassium 4.1, BUN 10, Creatinine 0.64, Glucose 117 H, Magnesium 1.9, Total Bilirubin 0.7, AST 52 H, ALT 51, Alkaline Phosphatase 87 Assessment and Plan - Problems (Diagnosis) (1) Tremors of nervous system Current Visit: Yes Status: Acute (2) Alcohol abuse Onset Date: 02/11/18 Current Visit: No Status: Acute (3) Alcohol dependence with withdrawal Onset Date: 02/11/18 Current Visit: No Status: Acute Qualifiers: Complication of substance-induced condition: uncomplicated Qualified Code(s ): F10.230 - Alcohol dependence with withdrawal, uncomplicated (4) COPD (chronic obstructive pulmonary disease) Onset Date: 02/11/18 Current Visit: No Status: Acute Qualifiers: COPD type: unspecified COPD Qualified Code(s): J44.9 - Chronic obstructive pulmonary disease, unspecified (5) COPD exacerbation Onset Date: 09/07/18 Current Visit: No Status: Acute (6) Tobacco abuse Onset Date: 02/11/18 Current Visit: No Status: Acute - Plan patient seen and examined at bedside in the Emergency room. I discussed with patient that I would like to admit him in ICU for close monitoring and further workup of the shakiness/tremors. unsure if this is related to liver disease secondary to alcohol abuse vs chronic prednisone use vs alcohol withdrawal vs a primary neurological process. Also O2 as needed, breathing treatments for his COPD exacerbation. Prior to being transferred to the floor, patient decided that he felt better than when he first came in. Discussed with patient that we do not recommend him leaving the hospital at this time, and if he did it would be against medical advice. Risks discussed Patient signed AMA forms and left hospital. - Advance Directives Does patient have a Living Will: No Does patient have a Durable POA for Healthcare: No
--- NOTE | 2018-11-15 06:26 | EKG ---
Test Date: 2018-11-14 Test Time: 19:33:29 Bioinformatician: RR MEASUREMENT RESULTS: Intervals: Rate: 94 GA: 132 QRSD: 94 QT: 380 QTc: 475 [place]ett: P: 50 GA: 132 QRS: 82 T: 67 INTERPRETIVE STATEMENTS: Normal sinus rhythm Normal ECG Compared to ECG 10/18/2018 20:03:27 Sinus tachycardia no longer present ST (T wave) deviation no longer present Electronically Signed On 11-15-18 06:18:09 CREDIT CHARGE AUTHORIZER by Wilber Ray
== END ==
LOC: ER 10:51 → ERHOLD 15:29 → UNDOADMIN 15:29
DX: J44.1 Chronic obstructive pulmonary disease with (acute) exacerbation (principal); F10.239 Alcohol dependence with withdrawal, unspecified; I10 Essential (primary) hypertension; K21.9 Gastro-esophageal reflux disease without esophagitis; R25.1 Tremor, unspecified; F17.210 Nicotine dependence, cigarettes, uncomplicated; Z79.51 Long term (current) use of inhaled steroids; Z79.899 Other long term (current) drug therapy; Z53.20 Procedure and treatment not carried out because of patient's decision for unspecified reasons
CPT/HCPCS: 36415; 71045; 74177; 80048; 80076; 80307; 80320; 81003; 83735; 83880; 84484; 85025; 85610; 93005; 99285; J3360; J3411; J7030; Q9967

== ENCOUNTER 2019-01-20 17:16 | Emergency (ER) | payer SELFPAY ==
--- NOTE | 2019-01-20 18:32 | RAD REPORT ---
EXAM DESCRIPTION: RAD - Chest Single View - 01/20/2019 6:25 pm CLINICAL HISTORY: Cough;COPD Chest pain. COMPARISON: Chest Single View dated 11/14/2018; Chest Single View dated 10/18/2018; Chest Single View dated 09/06/2018; Chest Pa And Lat (2 Views) dated 07/20/2018 FINDINGS: Portable technique limits examination quality. The lungs are grossly clear. The heart is normal in size. No displaced fractures. IMPRESSION: No acute intrathoracic process suspected.
[2019-01-20 18:42] LABS: Absolute Lymphocytes (CBC) 3.9 K/uL (0.7-4.9); Absolute Monocytes 1.1 K/uL (0.1-1.3); Absolute Neutrophil 12.1 K/uL (1.8-8.0); Basophils % 1.1 % (0-1.3); Eosinophils % 1.1 % (0-4.4); Hematocrit 48.2 % (39.6-49.0); Lymphocytes % 22.2 % (15.3-44.8); MPV 7.5 fL (7.6-11.3); Monocytes % 6.1 % (3.3-12.3); RBC Red Blood Cell Count 4.92 M/uL (4.33-5.43)
[2019-01-20] MEDS ORDERED: DEXAMETHASONE 4 MG/ML VIAL ONE (18:47)
[2019-01-20] MEDS ORDERED: DIPHENHYDRAMINE 50 MG/ML VIAL ONE (18:47)
[2019-01-20] MEDS ORDERED: METHYLPREDNISOLONE 125 MG INJ ONE (18:47)
[2019-01-20] MEDS ORDERED: ALBUTEROL 2.5 MG/3 ML NEB SOL ONE (18:48)
[2019-01-20] MEDS ORDERED: Levofloxacin500mg IV 500 MG/100 ML BAG IV ONE (18:48)
[2019-01-20] MEDS ORDERED: IPRATROPIUM BROM 0.5MG/2.5ML ONE (18:48)
[2019-01-20] MEDS ORDERED: FAMOTIDINE 20 MG/2 ML VIAL IV ONE (18:48)
[2019-01-20 18:49] LABS: Protime INR 0.87
[2019-01-20 19:01] LABS: ALT/SGPT 34 U/L (12-78); AST/SGOT 16 U/L (15-37); Albumin 4.3 g/dL (3.4-5.0); Alkaline Phosphatase 74 U/L (45-117); BUN Blood Urea Nitrogen 13 mg/dL (7-18); Bicarbonate 28 mmol/L (21-32); Bilirubin Direct 0.1 mg/dL (0-0.2); Bilirubin Total 0.4 mg/dL (0.2-1.0); Glucose Level 85 mg/dL (74-106); NT PRO-BNP 33 pg/mL (<125); Potassium 3.8 mmol/L (3.5-5.1); Protein, Total 7.6 g/dL (6.4-8.2); Sodium Level 140 mmol/L (136-145); Troponin (Emerg Dept Use Only) < 0.02 ng/mL (0.0-0.045)
--- NOTE | 2019-01-20 19:31 | ER ---
Nurse's Notes [facility] Name: Randy Briones Age: 48 yrs Sex: Male : 1970 Arrival Date: 01/20/2019 Time: 17:22 Bed 20 Private MD: Diagnosis: Chronic obstructive pulmonary disease with (acute) exacerbation;Allergy, unspecified-bc powder;Elevated white blood cell count Presentation: 01/20 17:22 Presenting complaint: Patient states: Itching "all over" that began approx 2 days ago, ph SOB that began to worsen today, hx of COPD, reports taking new meds recently, rash noted to back, arms, and abdomen. Transition of care: patient was not received from another setting of care. Onset of symptoms was January 20, 2019. Risk Assessment: Do you want to hurt yourself or someone else? Patient reports no desire to harm self or others. Initial Sepsis Screen: Does the patient meet any 2 criteria? No. Patient's initial sepsis screen is negative. 17:22 Method Of Arrival: Ambulatory ph 17:22 Acuity: CANDACE 2 ph Historical: - Allergies: 17:26 Lisinopril; ph - PMHx: 17:26 Alcoholism; COPD; Hypertension; ph - Immunization history:: Adult Immunizations unknown. - Social history:: Smoking status: Patient uses tobacco products, smokes one pack cigarettes per day. - Ebola Screening: : No symptoms or risks identified at this time. - Family history:: not pertinent. Screenin:45 Abuse screen: Denies threats or abuse. Denies injuries from another. Nutritional aj1 screening: No deficits noted. Tuberculosis screening: No symptoms or risk factors identified. Fall Risk None identified. Assessment: 17:45 General: Appears in no apparent distress. comfortable, Behavior is calm, cooperative, aj1 appropriate for age. Pain: Denies pain. Neuro: Level of Consciousness is awake, alert, obeys commands, Oriented to person, place, time, situation. Cardiovascular: Denies chest pain, Patient's skin is warm and dry. Rhythm is sinus rhythm. Respiratory: Airway is patent Respiratory effort is even, unlabored, Respiratory pattern is regular, symmetrical, Breath sounds with wheezes bilaterally. GI: No signs and/or symptoms were reported involving the gastrointestinal system. : No signs and/or symptoms were reported regarding the genitourinary system. EENT: No signs and/or symptoms were reported regarding the EENT system. Derm: Rash noted that is itchy, red. Musculoskeletal: No signs and/or symptoms reported regarding the musculoskeletal system. Circulation, motion, and sensation intact. 18:45 Reassessment: Patient appears in no apparent distress at this time. No changes from aj1 previously documented assessment. Patient and/or family updated on plan of care and expected duration. Pain level reassessed. Patient is alert, oriented x 3, equal unlabored respirations, skin warm/dry/pink. 19:15 Reassessment: Patient appears in no apparent distress at this time. Patient and/or jb4 family updated on plan of care and expected duration. Pain level reassessed. Patient is alert, oriented x 3, equal unlabored respirations, skin warm/dry/pink. 20:00 Reassessment: Patient appears in no apparent distress at this time. Patient and/or jb4 family updated on plan of care and expected duration. Pain level reassessed. Patient is alert, oriented x 3, equal unlabored respirations, skin warm/dry/pink. Pt is waiting on IV antibiotics to finish before discharge. 20:00 Respiratory: Airway is patent Respiratory effort is even, unlabored, Respiratory jb4 pattern is regular, symmetrical, Breath sounds with wheezes bilaterally. 20:42 Reassessment: Patient appears in no apparent distress at this time. Patient and/or jb4 family updated on plan of care and expected duration. Pain level reassessed. Patient is alert, oriented x 3, equal unlabored respirations, skin warm/dry/pink. Vital Signs: 17:27 BP 144 / 110; Pulse 107; Resp 26; Temp 98.1; Pulse Ox 96% on R/A; ph 18:45 BP 136 / 87; Pulse 85; Resp 18; Pulse Ox 97% on R/A; aj1 19:45 BP 152 / 87; Pulse 83; Resp 16; Pulse Ox 94% on R/A; jb4 ED Course: 17:22 Patient arrived in ED. ph 17:26 Triage completed. ph 17:27 Arm band placed on. ph 17:45 Patient has correct armband on for positive identification. Bed in low position. Call aj1 light in reach. Side rails up X 1. media monitor on. Pulse ox on. NIBP on. Sitter at bedside. 17:45 No provider procedures requiring assistance completed. Initial lab(s) drawn, by id, aj1 sent to lab. Inserted saline lock: 18 gauge in right antecubital area, using aseptic technique. Blood collected. 17:50 Aneta Luke, BRIGETTE is Primary Nurse. aj1 17:50 Bg Briones MD is Attending Physician. akash 18:25 XRAY Chest (1 view) In Process Unspecified. EDMS 20:45 IV discontinued, intact, bleeding controlled, No redness/swelling at site. jb4 Administered Medications: 18:51 Drug: NS 0.9% 1000 ml Route: IV; Rate: 125 ml/hr; Site: right antecubital; aj1 20:42 Follow up: Response: No adverse reaction; IV Status: Order to discontinue infusion jb4 18:51 Drug: Decadron - Dexamethasone 10 mg Route: IVP; Site: right antecubital; aj1 19:30 Follow up: Response: No adverse reaction jb4 18:51 Drug: Albuterol - atroVENT (3:1) (2.5 mg - 0.5 mg) 3 ml Route: Nebulizer; aj1 19:30 Follow up: Response: No adverse reaction jb4 18:52 Drug: SOLU-Medrol 125 mg Route: IVP; Site: right antecubital; aj1 19:30 Follow up: Response: No adverse reaction jb4 18:52 Drug: Benadryl 50 mg Route: IVP; Site: right antecubital; aj1 19:15 Follow up: Response: No adverse reaction; Marked relief of symptoms jb4 18:52 Drug: Pepcid 40 mg Route: IVP; Site: right antecubital; aj1 19:30 Follow up: Response: No adverse reaction jb4 18:53 Drug: levofloxacin 500 mg Volume: 100 ml; Route: IVPB; Infused Over: 60 mins; Site: aj1 right antecubital; 20:40 Follow up: Response: No adverse reaction; IV Status: Completed infusion jb4 Outcome: 19:31 Discharge ordered by . akash 20:45 Discharged to home ambulatory. jb4 20:45 Condition: stable 20:45 Discharge instructions given to patient, Instructed on discharge instructions, follow up and referral plans. medication usage, Demonstrated understanding of instructions, follow-up care, medications, Prescriptions given X 5 20:45 Patient left the ED. jb4 Signatures: Dispatcher [employer] EDMS Aneta Luke RN RN aj1 Bg Briones MD MD cha Hall, Patricia, RN RN Chivo Kothari RN RN jb4 Corrections: (The following items were deleted from the chart) 20:02 20:00 Reassessment: Patient appears in no apparent distress at this time. Patient jb4 and/or family updated on plan of care and expected duration. Pain level reassessed. Patient is alert, oriented x 3, equal unlabored respirations, skin warm/dry/pink. jb4 20:45 19:45 IV discontinued, intact, bleeding controlled, No redness/swelling at site. jb4 jb4
--- NOTE | 2019-01-20 19:32 | EDPHYS ---
Physician Documentation [facility] Name: Randy Briones Age: 48 yrs Sex: Male : 1970 Arrival Date: 01/20/2019 Time: 17:22 Bed 20 Private MD: ED Physician Bg Briones HPI: 01/20 18:21 This 48 yrs old Male presents to ER via Ambulatory with complaints of akash Breathing Difficulty. 18:21 The patient has shortness of breath at rest, with light activity. Onset: The akash symptoms/episode began/occurred 3 day(s) ago. Duration: The symptoms are continuous, and are steadily getting worse. The patient's shortness of breath has no apparent modifying factors. Associated signs and symptoms: Pertinent positives: red, rash, secondary bc powder. Severity of symptoms: At their worst the symptoms were mild moderate in the emergency department the symptoms are unchanged. The patient has not experienced similar symptoms in the past. Historical: - Allergies: 17:26 Lisinopril; ph - PMHx: 17:26 Alcoholism; COPD; Hypertension; ph - Immunization history:: Adult Immunizations unknown. - Social history:: Smoking status: Patient uses tobacco products, smokes one pack cigarettes per day. - Ebola Screening: : No symptoms or risks identified at this time. - Family history:: not pertinent. ROS: 18:21 Constitutional: Negative for fever, chills, and weight loss, Eyes: Negative for injury, akash pain, redness, and discharge, ENT: Negative for injury, pain, and discharge, Neck: Negative for injury, pain, and swelling, Cardiovascular: Negative for chest pain, palpitations, and edema, Abdomen/GI: Negative for abdominal pain, nausea, vomiting, diarrhea, and constipation, Back: Negative for injury and pain, : Negative for injury, bleeding, discharge, and swelling, MS/Extremity: Negative for injury and deformity, Neuro: Negative for headache, weakness, numbness, tingling, and seizure, Psych: Negative for depression, anxiety, suicide ideation, homicidal ideation, and hallucinations, Allergy/Immunology: Negative for hives, rash, and allergies, Endocrine: Negative for neck swelling, polydipsia, polyuria, polyphagia, and marked weight changes, Hematologic/Lymphatic: Negative for swollen nodes, abnormal bleeding, and unusual bruising. 18:21 Respiratory: Positive for cough, shortness of breath, wheezing, inspiratory, expiratory. 18:21 Skin: Positive for erythema, of the head, chest, right arm, left arm, back of left arm, back of right arm, posterior chest and back. Exam: 18:21 Constitutional: This is a well developed, well nourished patient who is awake, alert, akash and in no acute distress. Head/Face: Normocephalic, atraumatic. Eyes: Pupils equal round and reactive to light, extra-ocular motions intact. Lids and lashes normal. Conjunctiva and sclera are non-icteric and not injected. Cornea within normal limits. Periorbital areas with no swelling, redness, or edema. ENT: Nares patent. No nasal discharge, no septal abnormalities noted. Tympanic membranes are normal and external auditory canals are clear. Oropharynx with no redness, swelling, or masses, exudates, or evidence of obstruction, uvula midline. Mucous membranes moist. Neck: Trachea midline, no thyromegaly or masses palpated, and no cervical lymphadenopathy. Supple, full range of motion without nuchal rigidity, or vertebral point tenderness. No Meningismus. Chest/axilla: Normal chest wall appearance and motion. Nontender with no deformity. No lesions are appreciated. Cardiovascular: Regular rate and rhythm with a normal S1 and S2. No gallops, murmurs, or rubs. Normal PMI, no JVD. No pulse deficits. Abdomen/GI: Soft, non-tender, with normal bowel sounds. No distension or tympany. No guarding or rebound. No evidence of tenderness throughout. Back: No spinal tenderness. No costovertebral tenderness. Full range of motion. Male : Normal genitalia with no discharge or lesions. MS/ Extremity: Pulses equal, no cyanosis. Neurovascular intact. Full, normal range of motion. Neuro: Awake and alert, GCS 15, oriented to person, place, time, and situation. Cranial nerves II-XII grossly intact. Motor strength 5/5 in all extremities. Sensory grossly intact. Cerebellar exam normal. Normal gait. Psych: Awake, alert, with orientation to person, place and time. Behavior, mood, and affect are within normal limits. 18:21 Respiratory: the patient does not display signs of respiratory distress, Respirations: normal, Breath sounds: bronchial sounds, decreased breath sounds, rhonchi, that are mild, wheezing: inspiratory expiratory 19:29 Musculoskeletal/extremity: DVT Exam: No signs of deep vein thrombosis. no pain, no akash swelling, no tenderness, negative Homans' sign noted on exam, no appreciated bluish discoloration, no erythema, no increased warmth. Vital Signs: 17:27 BP 144 / 110; Pulse 107; Resp 26; Temp 98.1; Pulse Ox 96% on R/A; ph 18:45 BP 136 / 87; Pulse 85; Resp 18; Pulse Ox 97% on R/A; aj1 19:45 BP 152 / 87; Pulse 83; Resp 16; Pulse Ox 94% on R/A; jb4 MDM: 17:51 Patient medically screened. [facility] 18:24 Data reviewed: vital signs, nurses notes, lab test result(s), EKG, radiologic studies, [facility] plain films. 01/20 17:56 Order name: Basic Metabolic Panel; Complete Time: 19:27 [facility] 01/20 17:56 Order name: CBC with Diff; Complete Time: 19:27 [facility] 01/20 17:56 Order name: LFT's; Complete Time: 19:27 [facility] 01/20 17:56 Order name: Magnesium; Complete Time: 19:27 [facility] 01/20 17:56 Order name: NT PRO-BNP; Complete Time: 19:27 [facility] 01/20 17:56 Order name: PT-INR; Complete Time: 19:27 [facility] 01/20 17:56 Order name: Troponin (emerg Dept Use Only); Complete Time: 19:27 [facility] 01/20 17:56 Order name: XRAY Chest (1 view); Complete Time: 19:27 [facility] 01/20 17:56 Order name: Blood Culture Adult (2) [facility] 01/20 17:56 Order name: Influenza Screen (a \T\ B); Complete Time: 19:27 [facility] 01/20 20:21 Order name: Urine Dipstick--Ancillary (enter results) 2 01/20 17:56 Order name: Cardiac monitoring; Complete Time: 18:03 [facility] 01/20 17:56 Order name: EKG - Nurse/Tech; Complete Time: 18:03 [facility] 01/20 17:56 Order name: IV Saline Lock; Complete Time: 18:53 [facility] 01/20 17:56 Order name: Labs collected and sent; Complete Time: 18:53 [facility] 01/20 17:56 Order name: O2 Per Protocol; Complete Time: 18:03 [facility] 01/20 17:56 Order name: O2 Sat Monitoring; Complete Time: 18:03 [facility] 01/20 17:56 Order name: Urine Dipstick-Ancillary (obtain specimen); Complete Time: 20:41 [facility] Administered Medications: 18:51 Drug: NS 0.9% 1000 ml Route: IV; Rate: 125 ml/hr; Site: right antecubital; aj1 20:42 Follow up: Response: No adverse reaction; IV Status: Order to discontinue infusion jb4 18:51 Drug: Decadron - Dexamethasone 10 mg Route: IVP; Site: right antecubital; aj1 19:30 Follow up: Response: No adverse reaction jb4 18:51 Drug: Albuterol - atroVENT (3:1) (2.5 mg - 0.5 mg) 3 ml Route: Nebulizer; aj1 19:30 Follow up: Response: No adverse reaction jb4 18:52 Drug: SOLU-Medrol 125 mg Route: IVP; Site: right antecubital; aj1 19:30 Follow up: Response: No adverse reaction jb4 18:52 Drug: Benadryl 50 mg Route: IVP; Site: right antecubital; aj1 19:15 Follow up: Response: No adverse reaction; Marked relief of symptoms jb4 18:52 Drug: Pepcid 40 mg Route: IVP; Site: right antecubital; aj1 19:30 Follow up: Response: No adverse reaction jb4 18:53 Drug: levofloxacin 500 mg Volume: 100 ml; Route: IVPB; Infused Over: 60 mins; Site: aj right antecubital; 20:40 Follow up: Response: No adverse reaction; IV Status: Completed infusion jb4 Disposition: 01/20/19 19:31 Discharged to Home. Impression: Chronic obstructive pulmonary disease with (acute) exacerbation, Allergy, unspecified - bc powder, Elevated white blood cell count. - Condition is Stable. - Discharge Instructions: Chronic Bronchitis, Chronic Obstructive Pulmonary Disease, How to Use an Inhaler, Chronic Obstructive Pulmonary Disease Exacerbation, Chronic Obstructive Pulmonary Disease, [id number], Cough, Adult. - Prescriptions for Benadryl 25 mg Oral Capsule - take 2 capsule by ORAL route every 6 hours As needed; 30 tablet. Levaquin 500 mg Oral Tablet - take 1 tablet by ORAL route once daily for 7 days; 7 tablet. Pepcid 20 mg Oral Tablet - take 1 tablet by ORAL route every 12 hours for 10 days; 20 tablet. Albuterol Sulfate 2.5 mg /3 mL (0.083 %) Inhalation Solution for Nebulization - inhale 1 unit by NEBULIZATION route every 8 hours As needed; 1 box. Prednisone 20 mg Oral Tablet - take 2 tablets by ORAL route once daily for 5 days; 14 tablet. Albuterol Sulfate 90 mcg/actuation - inhale 1-2 puff by INHALATION route every 4-6 hours; 1 Inhaler. - Medication Reconciliation Form, Thank You Letter, Antibiotic Education, Prescription Opioid Use form. - Follow up: Private Physician; When: 2 - 3 days; Reason: Recheck today's complaints, Continuance of care, Re-evaluation by your physician. - Problem is new. - Symptoms have improved. Signatures: Dispatcher [employer] EDAneta Allison RN RN aj1 Bg Briones MD MD cha Hall, Patricia, RN RN Chivo Gill RN RN jb4 Corrections: (The following items were deleted from the chart) 20:45 19:31 01/20/2019 19:31 Discharged to Home. Impression: Chronic obstructive pulmonary jb4 disease with (acute) exacerbation; Allergy, unspecified - bc powder; Elevated white blood cell count. Condition is Stable. Discharge Instructions: Chronic Bronchitis, Chronic Obstructive Pulmonary Disease, How to Use an Inhaler, Chronic Obstructive Pulmonary Disease Exacerbation, Chronic Obstructive Pulmonary Disease, [id number], Cough, Adult. Prescriptions for Benadryl 25 mg Oral Capsule - take 2 capsule by ORAL route every 6 hours As needed; 30 tablet, Levaquin 500 mg Oral Tablet - take 1 tablet by ORAL route once daily for 7 days; 7 tablet, Pepcid 20 mg Oral Tablet - take 1 tablet by ORAL route every 12 hours for 10 days; 20 tablet, Albuterol Sulfate 2.5 mg /3 mL (0.083 %) Inhalation Solution for Nebulization - inhale 1 unit by NEBULIZATION route every 8 hours As needed; 1 box, Prednisone 20 mg Oral Tablet - take 2 tablets by ORAL route once daily for 5 days; 14 tablet, Albuterol Sulfate 90 mcg/actuation - inhale 1-2 puff by INHALATION route every 4-6 hours; 1 Inhaler. and Forms are Medication Reconciliation Form, Thank You Letter, Antibiotic Education, Prescription Opioid Use. Follow up: Private Physician; When: 2 - 3 days; Reason: Recheck today's complaints, Continuance of care, Re-evaluation by your physician. Problem is new. Symptoms have improved. akash
[2019-01-20 20:36] LABS: Urine Glucose NEGATIVE (NEG)
[2019-01-20 20:37] LABS: Urine Blood NEGATIVE (NEG); Urine Protein NEGATIVE (NEG); Urine pH 5.5 (5.0-7.0)
[2019-01-20 22:31] VITALS: TEMP 98.1
[2019-01-20 22:34] VITALS: BP 152/87; O2SAT 94
== END 2019-01-20 20:45 | disposition home or self-care (01) ==
LOC: ER 17:16
DX: J44.1 Chronic obstructive pulmonary disease with (acute) exacerbation (principal); D72.829 Elevated white blood cell count, unspecified; Z88.6 Allergy status to analgesic agent; I10 Essential (primary) hypertension; F17.210 Nicotine dependence, cigarettes, uncomplicated; Z88.8 Allergy status to other drugs, medicaments and biological substances
CPT/HCPCS: 36415; 71045; 80048; 80076; 81003; 83735; 83880; 84484; 85025; 85610; 87040; 87804; 94640; 96365; 96366; 96375; 99285; J2930

== ENCOUNTER 2019-02-11 18:55 | Emergency (ER) | payer BC, SELFPAY ==
[2019-02-11] MEDS ORDERED: IPRATROPIUM BROM 0.5MG/2.5ML ONE (19:40)
[2019-02-11] MEDS ORDERED: METHYLPREDNISOLONE 125 MG INJ ONE (19:40)
[2019-02-11] MEDS ORDERED: ALBUTEROL 2.5 MG/3 ML NEB SOL ONE (19:40)
[2019-02-11] MEDS ORDERED: MORPHINE 4 MG/ML SYR ONE (19:41)
[2019-02-11] MEDS ORDERED: ONDANSETRON 4 MG/2 ML VIAL ONE (19:41)
[2019-02-11 20:12] LABS: Absolute Lymphocytes (CBC) 4.3 K/uL (0.7-4.9); Absolute Monocytes 1.3 K/uL (0.1-1.3); Absolute Neutrophil 15.8 K/uL (1.8-8.0); Basophils % 1.3 % (0-1.3); Eosinophils % 0.7 % (0-4.4); Hematocrit 46.2 % (39.6-49.0); Lymphocytes % 19.5 % (15.3-44.8); MPV 7.2 fL (7.6-11.3); RBC Red Blood Cell Count 4.71 M/uL (4.33-5.43)
[2019-02-11 20:13] LABS: Protime INR 0.91
[2019-02-11] MEDS ORDERED: NA CHLORIDE 0.9% 1,000 ML ONE (20:15)
[2019-02-11] MEDS ORDERED: MEPERIDINE HCL 50 MG/ML AMP ONE (20:36)
[2019-02-11 20:46] LABS: Arterial Blood Carboxyhemoglob 5.6 % (0-1.5); Blood Gas Oxyhemoglobin 87.2 % (94-97); Blood O2 Saturation 93.2 % (92-98.5)
--- NOTE | 2019-02-11 21:01 | RAD REPORT ---
EXAM DESCRIPTION: RAD - Chest Single View - 02/11/2019 8:37 pm CLINICAL HISTORY: Chest pain COMPARISON: January 20 TECHNIQUE: AP portable chest image was obtained 2030 hours . FINDINGS: Lung volumes are shallow. Lung base stranding is present and could be atelectasis or minim al infiltrate. No failure or volume overload. Heart and vasculature are normal. No measurable pleural effusion and no pneumothorax. No acute bony abnormality seen. No acute aortic findings suspected. IMPRESSION: Shallow inspiration film showing atelectasis versus minimal infiltrate each lung base. No failure or volume overload.
[2019-02-11 21:27] LABS: ALT/SGPT 39 U/L (12-78); AST/SGOT 15 U/L (15-37); Alkaline Phosphatase 86 U/L (45-117); BUN Blood Urea Nitrogen 15 mg/dL (7-18); Bicarbonate 30 mmol/L (21-32); Bilirubin Direct 0.1 mg/dL (0-0.2); Bilirubin Total 0.4 mg/dL (0.2-1.0); Glucose Level 87 mg/dL (74-106); Magnesium 2.3 mg/dL (1.8-2.4); NT PRO-BNP 28 pg/mL (<125); Potassium 3.8 mmol/L (3.5-5.1); Protein, Total 7.8 g/dL (6.4-8.2); Sodium Level 142 mmol/L (136-145); Troponin (Emerg Dept Use Only) < 0.02 ng/mL (0.0-0.045)
--- NOTE | 2019-02-11 22:11 | EDPHYS ---
Physician Documentation [facility] Name: Randy Briones Age: 48 yrs Sex: Male : 1970 Arrival Date: 02/11/2019 Time: 18:56 Bed 6 Private MD: Adrianna Michaels H ED Physician Rod Dumas HPI: 02/11 19:23 This 48 yrs old Male presents to ER via Ambulatory with complaints of Chest pkl Pain, COPD Exacerbation. 19:23 The patient or guardian reports chest pain that is located primarily in the left side pkl chest. Onset: 2 day(s) ago. The pain does not radiate. Associated signs and symptoms: Pertinent positives: cough, shortness of breath. The chest pain is described as dull. Historical: - Allergies: 19:02 Lisinopril; hj - PMHx: 19:02 Alcoholism; COPD; Hypertension; hj - PSHx: 19:02 index finger surgery; hj - Immunization history:: Adult Immunizations unknown. - Social history:: Smoking status: unknown. - Ebola Screening: : Patient negative for fever greater than or equal to 101.5 degrees Fahrenheit, and additional compatible Ebola Virus Disease symptoms Patient denies exposure to infectious person Patient denies travel to an Ebola-affected area in the 21 days before illness onset. ROS: 19:26 Eyes: Negative for injury, pain, redness, and discharge, ENT: Negative for injury, pkl pain, and discharge, Neck: Negative for injury, pain, and swelling. 19:26 Cardiovascular: Positive for chest pain. 19:26 Respiratory: Positive for cough, with green sputum. 19:26 Abdomen/GI: Negative for abdominal pain, nausea, vomiting, and diarrhea. 19:26 Back: Negative for pain at rest. 19:26 : Negative for urinary symptoms. 19:26 MS/extremity: Negative for acute changes. 19:26 Skin: Negative for rash. 19:26 Neuro: Negative for altered mental status. Exam: 19:26 Head/Face: Normocephalic, atraumatic. Eyes: Pupils equal round and reactive to light, pkl extra-ocular motions intact. Lids and lashes normal. Conjunctiva and sclera are non-icteric and not injected. Cornea within normal limits. Periorbital areas with no swelling, redness, or edema. ENT: Nares patent. No nasal discharge, no septal abnormalities noted. Tympanic membranes are normal and external auditory canals are clear. Oropharynx with no redness, swelling, or masses, exudates, or evidence of obstruction, uvula midline. Mucous membranes moist. Neck: Trachea midline, no thyromegaly or masses palpated, and no cervical lymphadenopathy. Supple, full range of motion without nuchal rigidity, or vertebral point tenderness. No Meningismus. Chest/axilla: Normal chest wall appearance and motion. Nontender with no deformity. No lesions are appreciated. 19:26 Chest/axilla: Exam negative for acute changes. 19:26 Cardiovascular: Rate: tachycardic, actual rate is 105 bpm, Rhythm: regular. 19:26 ECG was reviewed by the Attending Physician. 19:26 Respiratory: mild respiratory distress is noted, Respirations: labored breathing, Breath sounds: rales, that are mild, are heard in the left side chest, bronchial sounds, that are moderate, are scattered, rhonchi, that are moderate, are scattered. 19:26 Abdomen/GI: Bowel sounds: normal, Palpation: abdomen is soft and non-tender, in all quadrants. 19:26 Back: Exam negative for acute changes. 19:26 : Exam negative for acute changes. 19:26 Musculoskeletal/extremity: Exam is negative for acute changes. 19:26 Skin: Exam negative for rash. 19:26 Neuro: Orientation: appropriate for stated age, Mentation: is normal, Cranial nerves: grossly normal, Motor: is normal. Vital Signs: 19:02 BP 144 / 86; Pulse 105; Resp 20; Temp 98.1(TE); Pulse Ox 93% on R/A; Weight 83.91 kg; hj Height 5 ft. 4 in. (162.56 cm); Pain 10/10; 19:30 BP 136 / 70; Pulse 98; Resp 21; Pulse Ox 96% on 2 lpm NC; rr5 20:25 BP 141 / 92; Pulse 95; Resp 19; Pulse Ox 99% on 2 lpm NC; rr5 21:30 BP 145 / 94; Pulse 87; Resp 17; Pulse Ox 99% ; rr5 22:15 BP 133 / 81; Pulse 85; Resp 19; Pulse Ox 99% ; rr5 19:02 Body Mass Index 31.75 (83.91 kg, 162.56 cm) MDM: 19:07 Patient medically screened. pkl 22:05 Data reviewed: vital signs, nurses notes, lab test result(s), EKG, radiologic studies, pkl plain films. 22:05 ED course: Discussed lab. and Xrays results with patient. Patient does not want to be pkl admitted. Sign AMA.. 02/11 19:21 Order name: Basic Metabolic Panel; Complete Time: 22:15 pkl 02/11 19:21 Order name: CBC with Diff pkl 02/11 19:21 Order name: LFT's; Complete Time: 22:15 pkl 02/11 19:21 Order name: Magnesium; Complete Time: 22:15 pkl 02/11 19:21 Order name: NT PRO-BNP; Complete Time: 22:15 pkl 02/11 19:21 Order name: PT-INR; Complete Time: 21:12 pkl 02/11 19:21 Order name: Troponin (emerg Dept Use Only); Complete Time: 22:15 pkl 02/11 19:21 Order name: D-Dimer; Complete Time: 21:12 pkl 02/11 19:21 Order name: ABG; Complete Time: 21:12 pkl 02/11 19:21 Order name: Lactate; Complete Time: 21:12 pkl 02/11 19:21 Order name: Procalcitonin; Complete Time: 21:12 pkl 02/11 19:21 Order name: Blood Culture Adult (2) pk 02/11 19:06 Order name: EKG - Nurse/Tech; Complete Time: 19:48 02/11 19:21 Order name: XRAY Chest (1 view); Complete Time: 21:12 pkl 02/11 19:21 Order name: EKG; Complete Time: 19:22 pkl 02/11 19:21 Order name: Cardiac monitoring; Complete Time: 19:48 pkl 02/11 19:21 Order name: IV Saline Lock; Complete Time: 19:48 pkl 02/11 19:21 Order name: Labs collected and sent; Complete Time: 19:48 pkl 02/11 19:21 Order name: O2 Per Protocol; Complete Time: 19:48 pkl 02/11 19:21 Order name: O2 Sat Monitoring; Complete Time: 19:47 pkl 02/11 20:15 Order name: Manual Differential EDMS Administered Medications: 19:25 CANCELLED (Patient Refused): Albumin 25 grams 100 ml IVPB once; (Note: Albumin 25% pkl concentration) 19:25 Drug: Zofran 4 mg Route: IVP; Site: right antecubital; rr5 22:15 Follow up: Response: No adverse reaction rr5 19:27 Drug: morphine 4 mg Route: IVP; Site: right antecubital; rr5 22:15 Follow up: Response: No adverse reaction rr5 19:30 Drug: SOLU-Medrol 125 mg Route: IVP; Site: right antecubital; rr5 22:15 Follow up: Response: No adverse reaction rr5 19:30 Drug: Albuterol - atroVENT (3:1) (2.5 mg - 0.5 mg) 3 ml Route: Nebulizer; rr5 22:15 Follow up: Response: No adverse reaction rr5 20:10 Drug: NS 0.9% 1000 ml Route: IV; Rate: 100 ml/hr; Site: right antecubital; rr5 22:15 Follow up: Response: No adverse reaction; IV Status: Order to discontinue infusion; IV rr5 Intake: 200ml 20:30 Drug: Demerol 50 mg {Note: Bp 141/92.} Route: IVP; Site: right antecubital; rr5 22:15 Follow up: Response: No adverse reaction rr5 Disposition: 02/11/19 22:13 Patient has left against medical advice. Impression: Chest pain. COPD exacerbation. Early pneumonia both lung bases. - Patients states they are going to Home. - Condition is Stable. - Prescriptions for Levaquin 500 mg Oral Tablet - take 1 tablet by ORAL route once daily for 7 days; 7 tablet. Ultram 50 mg Oral Tablet - take 1 tablet by ORAL route every 8 hours As needed; 20 tablet. Follow up: Adrianna Michaels DO; When: 2 - 3 days; Reason: Re-evaluation by your physician. - Problem is new. - Symptoms have improved. Signatures: Dispatcher [employer] EDMS Rod Dumas MD MD pkl Elliott Todd RN RN hj Roque, Raymond, RN RN rr5 Corrections: (The following items were deleted from the chart) 19:25 19:21 Albumin 25 grams 100 ml IVPB once; (Note: Albumin 25% concentration) ordered. pkl pkl 22:11 22:10 02/11/2019 22:10 Discharged to Home. Impression: Chest pain. COPD exacerbation. pkl Early pneumonia both lung bases.. Condition is Stable. Forms are Medication Reconciliation Form, Thank You Letter, Antibiotic Education, Prescription Opioid Use. Follow up: [facility]; When: 2 - 3 days; Reason: Re-evaluation by your physician. Problem is new. Symptoms have improved. pkl 22:28 22:13 02/11/2019 22:13 Patients has left against medical advice. Impression: Chest rr5 pain. COPD exacerbation. Early pneumonia both lung bases. Patient states they are going to Home. Condition is Stable. Prescriptions for Levaquin 500 mg Oral Tablet - take 1 tablet by ORAL route once daily for 7 days; 7 tabletFollow up: [facility]; When: 2 - 3 days; Reason: Re-evaluation by your physician. Problem is new. Symptoms have improved. pkl
--- NOTE | 2019-02-11 22:11 | ER ---
Nurse's Notes [facility] Name: Randy Briones Age: 48 yrs Sex: Male : 1970 Arrival Date: 02/11/2019 Time: 18:56 Bed 6 Private MD: Adrianna Michaels H Diagnosis: Chest pain. COPD exacerbation. Early pneumonia both lung bases Presentation: 02/11 19:00 Presenting complaint: Patient states: i woke up this morning with chest pain, heavy, hj stabbing, felt like my L breast is swollen; reports SOB; pain non radiating;. Transition of care: patient was not received from another setting of care. Onset of symptoms was February 11, 2019. Risk Assessment: Do you want to hurt yourself or someone else? Patient reports no desire to harm self or others. Initial Sepsis Screen: Does the patient meet any 2 criteria? No. Patient's initial sepsis screen is negative. Does the patient have a suspected source of infection? No. Patient's initial sepsis screen is negative. Care prior to arrival: None. 19:00 Method Of Arrival: Ambulatory 19:00 Acuity: CANDACE 3 hj Triage Assessment: 19:02 General: Appears in no apparent distress. uncomfortable, Behavior is cooperative, hj appropriate for age, anxious. Pain: Complains of pain in chest. Cardiovascular: Capillary refill < 3 seconds Patient's skin is warm and dry. Historical: - Allergies: 19:02 Lisinopril; hj - PMHx: 19:02 Alcoholism; COPD; Hypertension; hj - PSHx: 19:02 index finger surgery; hj - Immunization history:: Adult Immunizations unknown. - Social history:: Smoking status: unknown. - Ebola Screening: : Patient negative for fever greater than or equal to 101.5 degrees Fahrenheit, and additional compatible Ebola Virus Disease symptoms Patient denies exposure to infectious person Patient denies travel to an Ebola-affected area in the 21 days before illness onset. Screenin:30 Abuse screen: Denies threats or abuse. Denies injuries from another. Nutritional rr5 screening: No deficits noted. Tuberculosis screening: No symptoms or risk factors identified. Fall Risk IV access (20 points). Total Art Fall Scale indicates No Risk (0-24 pts). Assessment: 19:02 Pain: Pain does not radiate. Pain began this AM;. hj 19:10 General: Appears in no apparent distress. uncomfortable, Behavior is calm, cooperative, rr5 appropriate for age. Pain: Complains of pain in left chest pain Pain does not radiate. Pain currently is 10 out of 10 on a pain scale. Quality of pain is described as aching, Pain began gradually, Is intermittent. 19:10 Neuro: Level of Consciousness is awake, alert, obeys commands, Oriented to person, rr5 place, time, situation, Appropriate for age. Cardiovascular: Reports chest pain, Capillary refill < 3 seconds Patient's skin is warm and dry. left chest tender muscle. Respiratory: Airway is patent Respiratory effort is even, unlabored, Respiratory pattern is regular, symmetrical. GI: No signs and/or symptoms were reported involving the gastrointestinal system. : No signs and/or symptoms were reported regarding the genitourinary system. EENT: No signs and/or symptoms were reported regarding the EENT system. Derm: Skin is intact, Skin temperature is warm. Musculoskeletal: Swelling present in right leg and left leg. 20:25 Reassessment: No changes from previously documented assessment. still having severe rr5 left side chest pain. 10/10 pain score. Ed provider aware with order made and carried out. 21:15 Reassessment: Patient appears in no apparent distress at this time. Patient is alert, rr5 oriented x 3, equal unlabored respirations, skin warm/dry/pink. asleep comfortably on bed Patient states symptoms have improved. 22:00 Reassessment: Patient appears in no apparent distress at this time. Patient is alert, rr5 oriented x 3, equal unlabored respirations, skin warm/dry/pink. review done by ED provider. patient decided to go and wants to do AMA. form signed. feels better now as verbalized by the patient. 22:26 Reassessment: Patient appears in no apparent distress at this time. discharge rr5 instruction given and explained without complaints made. 22:26 Reassessment: Patient states feeling better. Patient states symptoms have improved. rr5 Vital Signs: 19:02 BP 144 / 86; Pulse 105; Resp 20; Temp 98.1(TE); Pulse Ox 93% on R/A; Weight 83.91 kg; hj Height 5 ft. 4 in. (162.56 cm); Pain 10/10; 19:30 BP 136 / 70; Pulse 98; Resp 21; Pulse Ox 96% on 2 lpm NC; rr5 20:25 BP 141 / 92; Pulse 95; Resp 19; Pulse Ox 99% on 2 lpm NC; rr5 21:30 BP 145 / 94; Pulse 87; Resp 17; Pulse Ox 99% ; rr5 22:15 BP 133 / 81; Pulse 85; Resp 19; Pulse Ox 99% ; rr5 19:02 Body Mass Index 31.75 (83.91 kg, 162.56 cm) ED Course: 18:56 Patient arrived in ED. as 18:57 Adrianna Michaels DO is Private Physician. as 19:01 Triage completed. hj 19:02 Arm band placed on right wrist. hj 19:07 Rod Dumas MD is Attending Physician. pkl 19:10 Patient has correct armband on for positive identification. Placed in gown. Bed in low rr5 position. Call light in reach. Side rails up X2. youth nutritional monitor on. Pulse ox on. NIBP on. 19:22 Joselito Hernandez RN is Primary Nurse. rr5 19:25 Inserted saline lock: 20 gauge in right antecubital area, using aseptic technique. rr5 Blood collected. 19:30 Oxygen administration via nasal cannula \T\ 2L/min Response to oxygen therapy: symptoms rr5 improved. 20:10 Inserted saline lock: 20 gauge in left antecubital area, using aseptic technique. rr5 ,using aseptic technique. by Sirisha MACHUCA Blood collected. 20:37 XRAY Chest (1 view) In Process Unspecified. EDMS 22:08 Adrianna Michaels DO is Referral Physician. pkl 22:12 Adrianna Michaels DO is Referral Physician. pkl 22:27 No provider procedures requiring assistance completed. IV discontinued, intact, rr5 bleeding controlled, No redness/swelling at site. Pressure dressing applied. Administered Medications: 19:25 CANCELLED (Patient Refused): Albumin 25 grams 100 ml IVPB once; (Note: Albumin 25% pkl concentration) 19:25 Drug: Zofran 4 mg Route: IVP; Site: right antecubital; rr5 22:15 Follow up: Response: No adverse reaction rr5 19:27 Drug: morphine 4 mg Route: IVP; Site: right antecubital; rr5 22:15 Follow up: Response: No adverse reaction rr5 19:30 Drug: SOLU-Medrol 125 mg Route: IVP; Site: right antecubital; rr5 22:15 Follow up: Response: No adverse reaction rr5 19:30 Drug: Albuterol - atroVENT (3:1) (2.5 mg - 0.5 mg) 3 ml Route: Nebulizer; rr5 22:15 Follow up: Response: No adverse reaction rr5 20:10 Drug: NS 0.9% 1000 ml Route: IV; Rate: 100 ml/hr; Site: right antecubital; rr5 22:15 Follow up: Response: No adverse reaction; IV Status: Order to discontinue infusion; IV rr5 Intake: 200ml 20:30 Drug: Demerol 50 mg {Note: Bp 141/92.} Route: IVP; Site: right antecubital; rr5 22:15 Follow up: Response: No adverse reaction rr5 Intake: 22:15 IV: 200ml; Total: 200ml. rr5 Outcome: 22:10 Discharge ordered by . eusebia 22:27 Discharged to home ambulatory. rr5 22:27 Condition: stable 22:27 Discharge instructions given to patient, Instructed on discharge instructions, follow up and referral plans. medication usage, Demonstrated understanding of instructions, follow-up care, Prescriptions given X 2. 22:28 Patient left the ED. rr5 Signatures: Dispatcher [employer] EDMS Rod Dumas MD MD pkl Martinez, Amelia as Joaquin, Henry, RN RN hj Roque, Raymond, RN RN rr5 Corrections: (The following items were deleted from the chart) 19:05 19:02 83.91 kg; Height 5 ft. 4 in.; BMI: 31.7; Pain 10/10; hj hj 19:06 19:02 Pulse 105bpm; Resp 20bpm; Pulse Ox 93% RA; Temp 98.1F Temporal; 83.91 kg; Height hj 5 ft. 4 in.; BMI: 31.7; Pain 10/10; hj
[2019-02-11 23:06] LABS: Blood Morphology Comment NOT SEEN (NOT SEEN); Platelet Estimate ADEQ
[2019-02-11 23:08] VITALS: TEMP 98.1
[2019-02-11 23:15] VITALS: O2SAT 99
[2019-02-11 23:28] VITALS: BP 133/81
--- NOTE | 2019-02-15 11:30 | EKG ---
Test Date: 2019-02-11 Test Time: 19:03:06 [place]in[place] Machine Tender: ADALID MEASUREMENT RESULTS: Intervals: Rate: 100 IN: 132 QRSD: 100 QT: 354 QTc: 456 Likely: P: 57 IN: 132 QRS: 81 T: 72 INTERPRETIVE STATEMENTS: Normal sinus rhythm Normal ECG Compared to ECG 11/14/2018 19:33:29 No significant changes Electronically Signed On 02-12-19 16:45:40 CDT by Wilber Ray
== END 2019-02-11 22:28 | disposition left against medical advice (07) ==
LOC: ER 18:55
DX: J44.1 Chronic obstructive pulmonary disease with (acute) exacerbation (principal); J18.9 Pneumonia, unspecified organism; I10 Essential (primary) hypertension
CPT/HCPCS: 36415; 71045; 80048; 80076; 82805; 83605; 83735; 83880; 84145; 84484; 85025; 85379; 85610; 87040; 93005; 94640; 96361; 96374; 96375; 99285; J2175; J2405; J2930; J7030

== ENCOUNTER 2019-02-12 10:12 | Inpatient (IN) | payer BC ==
[2019-02-12] MEDS ORDERED: NA CHLORIDE 0.9% 1,000 ML ONE (10:41)
[2019-02-12] MEDS ORDERED: ALBUTEROL 2.5 MG/3 ML NEB SOL ONE ×2 (10:41→11:09)
[2019-02-12] MEDS ORDERED: IPRATROPIUM BROM 0.5MG/2.5ML ONE (10:41)
[2019-02-12] MEDS ORDERED: METHYLPREDNISOLONE 125 MG INJ ONE (10:42)
[2019-02-12 11:07] LABS: Absolute Lymphocytes (CBC) 1.4 K/uL (0.7-4.9); Absolute Monocytes 0.8 K/uL (0.1-1.3); Absolute Neutrophil 20.8 K/uL (1.8-8.0); Basophils % 0.2 % (0-1.3); Eosinophils % 0.1 % (0-4.4); MPV 7.3 fL (7.6-11.3); Monocytes % 3.4 % (3.3-12.3); RBC Red Blood Cell Count 4.66 M/uL (4.33-5.43)
[2019-02-12 11:08] LABS: Protime INR 0.89
[2019-02-12] MEDS ORDERED: DEXAMETHASONE 10 MG/ML VIAL ONE (11:09)
[2019-02-12] MEDS ORDERED: MEPERIDINE HCL 25 MG/0.5 ML ONE ×3 (11:09→14:17)
[2019-02-12 11:35] LABS: Platelet Estimate ADEQ
[2019-02-12 11:36] LABS: Blood Morphology Comment NOT SEEN (NOT SEEN)
--- NOTE | 2019-02-12 11:36 | EDPHYS ---
Physician Documentation [facility] Name: Randy Briones Age: 48 yrs Sex: Male : 1970 Arrival Date: 02/12/2019 Time: 10:13 Bed 5 Private MD: Bg Manriquez HPI: 02/12 11:21 This 48 yrs old Male presents to ER via Wheelchair with complaints of COPD akash Exacerbation. 11:21 The patient has shortness of breath at rest, with light activity. Onset: The akash symptoms/episode began/occurred 5 day(s) ago. Duration: The symptoms are continuous, and are steadily getting worse. The patient's shortness of breath has no apparent modifying factors. The patient or guardian reports chest pain that is located primarily in the anterior chest wall, bilaterally. Severity of symptoms: At their worst the symptoms were mild moderate in the emergency department the symptoms are unchanged. The patient or guardian reports airway noise, cough, described as moderate, difficulty breathing. Severity of symptoms: At their worst the symptoms were moderate, in the emergency department the symptoms are unchanged. Associated signs and symptoms: The patient has no apparent associated signs or symptoms. Historical: - Allergies: 10:15 Lisinopril; la1 - Home Meds: 14:41 Advair Diskus 250-50 mcg/dose Inhl dsdv 1 puff 2 times per day [Active]; albuterol sg sulfate 2.5 mg /3 mL (0.083 %) Inhl nebu 3 mL 3 times per day [Active]; gabapentin 100 mg Oral cap 3 caps 3 times per day [Active]; montelukast 10 mg Oral tab 1 tab once daily [Active]; Nexium 40 mg Oral cpDR 1 cap 2 times per day [Active]; Norvasc 10 mg Oral tab once daily [Active]; Spiriva with HandiHaler inhalation [Active]; Triamterene-Hydrochlorothiazid Oral once daily [Active]; - PMHx: 10:15 Alcoholism; COPD; Hypertension; la1 - PSHx: 14:41 index finger surgery; sg - Immunization history:: Adult Immunizations up to date. - Social history:: Smoking status: Patient uses tobacco products, smokes one pack cigarettes per day. - Ebola Screening: : No symptoms or risks identified at this time. - Family history:: not pertinent. ROS: 11:21 Constitutional: Negative for fever, chills, and weight loss, Eyes: Negative for injury, akash pain, redness, and discharge, ENT: Negative for injury, pain, and discharge, Neck: Negative for injury, pain, and swelling, Abdomen/GI: Negative for abdominal pain, nausea, vomiting, diarrhea, and constipation, Back: Negative for injury and pain, : Negative for injury, bleeding, discharge, and swelling, MS/Extremity: Negative for injury and deformity, Skin: Negative for injury, rash, and discoloration, Neuro: Negative for headache, weakness, numbness, tingling, and seizure, Psych: Negative for depression, anxiety, suicide ideation, homicidal ideation, and hallucinations, Allergy/Immunology: Negative for hives, rash, and allergies, Endocrine: Negative for neck swelling, polydipsia, polyuria, polyphagia, and marked weight changes, Hematologic/Lymphatic: Negative for swollen nodes, abnormal bleeding, and unusual bruising. 11:21 Cardiovascular: Positive for palpitations. 11:21 Respiratory: Positive for cough, shortness of breath, wheezing, inspiratory, expiratory. Exam: 11:21 Constitutional: This is a well developed, well nourished patient who is awake, alert, akash and in no acute distress. Head/Face: Normocephalic, atraumatic. Eyes: Pupils equal round and reactive to light, extra-ocular motions intact. Lids and lashes normal. Conjunctiva and sclera are non-icteric and not injected. Cornea within normal limits. Periorbital areas with no swelling, redness, or edema. ENT: Nares patent. No nasal discharge, no septal abnormalities noted. Tympanic membranes are normal and external auditory canals are clear. Oropharynx with no redness, swelling, or masses, exudates, or evidence of obstruction, uvula midline. Mucous membranes moist. Neck: Trachea midline, no thyromegaly or masses palpated, and no cervical lymphadenopathy. Supple, full range of motion without nuchal rigidity, or vertebral point tenderness. No Meningismus. Chest/axilla: Normal chest wall appearance and motion. Nontender with no deformity. No lesions are appreciated. Cardiovascular: Regular rate and rhythm with a normal S1 and S2. No gallops, murmurs, or rubs. Normal PMI, no JVD. No pulse deficits. Abdomen/GI: Soft, non-tender, with normal bowel sounds. No distension or tympany. No guarding or rebound. No evidence of tenderness throughout. Back: No spinal tenderness. No costovertebral tenderness. Full range of motion. Male : Normal genitalia with no discharge or lesions. Skin: Warm, dry with normal turgor. Normal color with no rashes, no lesions, and no evidence of cellulitis. Neuro: Awake and alert, GCS 15, oriented to person, place, time, and situation. Cranial nerves II-XII grossly intact. Motor strength 5/5 in all extremities. Sensory grossly intact. Cerebellar exam normal. Normal gait. Psych: Awake, alert, with orientation to person, place and time. Behavior, mood, and affect are within normal limits. 11:21 Respiratory: mild respiratory distress is noted, moderate respiratory distress is noted, Respirations: labored breathing, Breath sounds: decreased breath sounds, rhonchi, wheezing: inspiratory expiratory 11:21 Musculoskeletal/extremity: Extremities: all appear grossly normal, with no appreciated pain with palpation, ROM: full active range of motion, full passive range of motion, Circulation is intact in all extremities. Compartment Syndrome exam of affected extremity: is normal. Weight bearing: able to fully bear weight, DVT Exam: no pain, no swelling, no tenderness, negative Homans' sign noted on exam, no appreciated bluish discoloration, no erythema, no increased warmth. Vital Signs: 10:15 BP 159 / 94; Pulse 115; Resp 30; Temp 98.0; Pulse Ox 94% on R/A; Weight 83.91 kg; la1 Height 5 ft. 4 in. (162.56 cm); Pain 10/10; 11:13 BP 147 / 90; Pulse 100; Resp 28; Pulse Ox 95% on 100% Nebulizer Mask; sg 11:33 BP 157 / 83; Pulse 102; Resp 26; Pulse Ox 96% ; sv 12:30 BP 148 / 92; Pulse 102; Resp 27 S; Pulse Ox 88% on R/A; sg 13:20 BP 145 / 90; Pulse 102; Resp 29 S; Pulse Ox 89% on 2 lpm NC; sg 14:13 BP 137 / 90; Pulse 92; Resp 17 S; Pulse Ox 92% on 40% BiPAP; sg 10:15 Body Mass Index 31.75 (83.91 kg, 162.56 cm) la1 MDM: 10:19 Patient medically screened. [facility] 11:26 Data reviewed: vital signs, nurses notes, lab test result(s), EKG, radiologic studies, akash plain films. 02/12 10:23 Order name: Basic Metabolic Panel; Complete Time: 11:46 [facility] 02/12 10:23 Order name: CBC with Diff; Complete Time: 11:46 [facility] 02/12 10:23 Order name: LFT's; Complete Time: 11:46 [facility] 02/12 10:23 Order name: Magnesium; Complete Time: 11:46 [facility] 02/12 10:23 Order name: NT PRO-BNP; Complete Time: 11:46 [facility] 02/12 10:23 Order name: PT-INR; Complete Time: 11:20 [facility] 02/12 10:23 Order name: Troponin (emerg Dept Use Only); Complete Time: 11:46 [facility] 02/12 10:23 Order name: XRAY Chest (1 view); Complete Time: 11:46 [facility] 02/12 10:23 Order name: Blood Culture Adult (2) [facility] 02/12 10:23 Order name: Procalcitonin; Complete Time: 13:06 [facility] 02/12 10:23 Order name: Flu; Complete Time: 11:20 [facility] 02/12 11:13 Order name: Manual Differential; Complete Time: 11:46 EDMS 02/12 11:36 Order name: Urine Dipstick--Ancillary (enter results); Complete Time: 13:06 hb 02/12 13:18 Order name: CT Chest For PE Angio [facility] 02/12 10:23 Order name: EKG; Complete Time: 10:24 [facility] 02/12 10:23 Order name: Cardiac monitoring; Complete Time: 10:37 [facility] 02/12 13:28 Order name: BIPAP [facility] 02/12 14:16 Order name: CT; Complete Time: 15:03 EDMS 02/12 15:03 Order name: INCENTIVE SPIROMETRY akash 02/12 10:23 Order name: EKG - Nurse/Tech; Complete Time: 11:26 [facility] 02/12 10:23 Order name: IV Saline Lock; Complete Time: 10:37 [facility] 02/12 10:23 Order name: Labs collected and sent; Complete Time: 10:37 [facility] 02/12 10:23 Order name: O2 Per Protocol; Complete Time: 10:37 [facility] 02/12 10:23 Order name: O2 Sat Monitoring; Complete Time: 10:37 [facility] 02/12 11:32 Order name: Urine Dipstick-Ancillary (obtain specimen); Complete Time: 11:36 [facility] Administered Medications: 10:30 Drug: Albuterol - atroVENT (3:1) (2.5 mg - 0.5 mg) 3 ml Route: Nebulizer; sg 11:00 Follow up: Response: No adverse reaction sg 10:35 Drug: SOLU-Medrol 125 mg Route: IVP; Site: right hand; sg 11:00 Follow up: Response: No adverse reaction sg 11:10 Drug: NS 0.9% 1000 ml Route: IV; Rate: 125 ml/hr; Site: right hand; sg 11:10 Drug: Decadron - Dexamethasone 10 mg Route: IVP; Site: right hand; sg 12:00 Follow up: Response: No adverse reaction sg 11:12 Drug: Albuterol 2.5 mg Route: Inhalation; sg 11:40 Drug: Zosyn 3.375 grams Route: IVPB; Infused Over: 60 mins; Site: right hand; sg 12:38 Follow up: Response: No adverse reaction; IV Status: Completed infusion sg 12:20 Not Given (Physician Discretion): levofloxacin 250 mg 50 ml IVPB once over 60 mins sg 12:21 Not Given (Physician Discretion): levofloxacin 500 mg 100 ml IVPB once over 60 mins sg 12:38 Drug: LevaQUIN 750 mg Volume: 150 ml; Route: IVPB; Infused Over: 90 mins; Site: right sg hand; 14:00 Follow up: Response: No adverse reaction; IV Status: Completed infusion sg 14:10 Drug: Demerol 25 mg Route: IVP; Site: right hand; sg 15:00 Follow up: Response: No adverse reaction; Pain is decreased sg 15:37 Not Given (Physician Discretion): Demerol 25 mg IVP once sg Disposition: 02/12/19 11:35 Hospitalization ordered by Sotero Leigh for Inpatient Admission. Preliminary diagnosis are Pneumonia due to other specified bacteria, Elevated white blood cell count, Hypoxemia. - Bed requested for Telemetry/MedSurg (Inpatient). - Status is Inpatient Admission. sg - Condition is Fair. - Problem is new. - Symptoms have improved. UTI on Admission? No Signatures: Dispatcher [employer] EDMS Sriram Marques RN RN sg Anderson, Corey, MD MD cha Attema, Lee, RN RN la1 Irasema Peters RN RN df Corrections: (The following items were deleted from the chart) 14:03 11:35 Hospitalization Ordered by Sotero Leigh DO for Inpatient Admission. Preliminary df diagnosis is Pneumonia due to other specified bacteria; Elevated white blood cell count; Hypoxemia. Bed requested for Telemetry/MedSurg (Inpatient). Status is Inpatient Admission. Condition is Fair. Problem is new. Symptoms have improved. UTI on Admission? No. akash 15:37 14:03 02/12/2019 11:35 Hospitalization Ordered by Sotero Leigh DO for Inpatient sg Admission. Preliminary diagnosis is Pneumonia due to other specified bacteria; Elevated white blood cell count; Hypoxemia. Bed requested for Telemetry/MedSurg (Inpatient). Status is Inpatient Admission. Condition is Fair. Problem is new. Symptoms have improved. UTI on Admission? No. df
--- NOTE | 2019-02-12 11:36 | ER ---
Nurse's Notes [facility] Name: Randy Briones Age: 48 yrs Sex: Male : 1970 Arrival Date: 02/12/2019 Time: 10:13 Bed 5 Private MD: Diagnosis: Pneumonia due to other specified bacteria;Elevated white blood cell count;Hypoxemia Presentation: 02/12 10:14 Presenting complaint: Patient states: I was here last night for COPD and PNE and they la1 wanted me to stay but I went home. Transition of care: patient was not received from another setting of care. Onset of symptoms was February 12, 2019. Risk Assessment: Do you want to hurt yourself or someone else? Patient reports no desire to harm self or others. Care prior to arrival: None. 10:14 Method Of Arrival: Wheelchair la1 10:14 Acuity: CANDACE 2 la1 10:45 Initial Sepsis Screen: Does the patient meet any 2 criteria? RR > 20 per min. HR > 90 sg bpm. Yes Does the patient have a suspected source of infection? Yes: Productive cough/pneumonia. Historical: - Allergies: 10:15 Lisinopril; la1 - Home Meds: 14:41 Advair Diskus 250-50 mcg/dose Inhl dsdv 1 puff 2 times per day [Active]; albuterol sg sulfate 2.5 mg /3 mL (0.083 %) Inhl nebu 3 mL 3 times per day [Active]; gabapentin 100 mg Oral cap 3 caps 3 times per day [Active]; montelukast 10 mg Oral tab 1 tab once daily [Active]; Nexium 40 mg Oral cpDR 1 cap 2 times per day [Active]; Norvasc 10 mg Oral tab once daily [Active]; Spiriva with HandiHaler inhalation [Active]; Triamterene-Hydrochlorothiazid Oral once daily [Active]; - PMHx: 10:15 Alcoholism; COPD; Hypertension; la1 - PSHx: 14:41 index finger surgery; sg - Immunization history:: Adult Immunizations up to date. - Social history:: Smoking status: Patient uses tobacco products, smokes one pack cigarettes per day. - Ebola Screening: : No symptoms or risks identified at this time. - Family history:: not pertinent. Screenin:40 Abuse screen: Denies threats or abuse. Denies injuries from another. Nutritional sg screening: No deficits noted. Tuberculosis screening: No symptoms or risk factors identified. Never had TB. Fall Risk None identified. Assessment: 10:40 General: Appears in no apparent distress. comfortable, well groomed, well developed, sg well nourished, Behavior is calm, cooperative, appropriate for age. Pain: Complains of pain in anterior aspect of left upper chest and left breast. Neuro: Level of Consciousness is awake, alert, obeys commands, Speech is normal, Facial symmetry appears normal. Cardiovascular: Patient's skin is warm and dry. Respiratory: Airway is patent Respiratory effort is even, labored, Respiratory pattern is symmetrical, tachypnea Breath sounds are diminished in left posterior lower lobe and right posterior lower lobe. GI: No signs and/or symptoms were reported involving the gastrointestinal system. : No signs and/or symptoms were reported regarding the genitourinary system. EENT: No signs and/or symptoms were reported regarding the EENT system. Derm: Skin is intact, is healthy with good turgor, Skin is dry, Skin is red, Skin temperature is warm. Musculoskeletal: No signs and/or symptoms reported regarding the musculoskeletal system. 11:45 Reassessment: Patient appears in no apparent distress at this time. Patient and/or sg family updated on plan of care and expected duration. Pain level reassessed. Patient states symptoms have not improved. 12:42 Reassessment: Patient appears in no apparent distress at this time. Patient and/or sg family updated on plan of care and expected duration. Pain level reassessed. notified, pt o2 saturation and work of breathing, pt stated understanding Patient states symptoms have not improved. 13:35 Reassessment: Veda FIREWALL ADMINISTRATOR at bedside for BiPap placement. sg 13:40 Reassessment: pt transported to CT at this time, pt to be placed on BiPap once returned sg from CT scan. 14:17 Respiratory: Reports decreased shortness of breath with the BiPap Airway is patent sg Respiratory effort is even, unlabored, Respiratory pattern is regular, symmetrical. Derm: Skin is pink, warm \T\ dry. Vital Signs: 10:15 BP 159 / 94; Pulse 115; Resp 30; Temp 98.0; Pulse Ox 94% on R/A; Weight 83.91 kg; la1 Height 5 ft. 4 in. (162.56 cm); Pain 10/10; 11:13 BP 147 / 90; Pulse 100; Resp 28; Pulse Ox 95% on 100% Nebulizer Mask; sg 11:33 BP 157 / 83; Pulse 102; Resp 26; Pulse Ox 96% ; sv 12:30 BP 148 / 92; Pulse 102; Resp 27 S; Pulse Ox 88% on R/A; sg 13:20 BP 145 / 90; Pulse 102; Resp 29 S; Pulse Ox 89% on 2 lpm NC; sg 14:13 BP 137 / 90; Pulse 92; Resp 17 S; Pulse Ox 92% on 40% BiPAP; sg 10:15 Body Mass Index 31.75 (83.91 kg, 162.56 cm) la1 ED Course: 10:13 Patient arrived in ED. as 10:14 Triage completed. la1 10:15 Arm band placed on left wrist. la1 10:19 Bg Briones MD is Attending Physician. akash 10:36 Sriram Marques RN is Primary Nurse. sg 10:40 Patient has correct armband on for positive identification. Bed in low position. Call sg light in reach. environmental monitoring technician on. Pulse ox on. NIBP on. Head of bed. 10:40 Flu and/or RSV swab sent to lab. dh3 10:46 Initial lab(s) drawn, by ga, sent to lab. Missed attempt(s): 18 gauge in right dh3 antecubital area. Bleeding controlled, band aid applied, catheter tip intact. 10:50 Inserted saline lock: 20 gauge in right hand, using aseptic technique. dh3 10:57 X-ray completed. Portable x-ray completed in exam room. Patient tolerated procedure la2 well. 11:06 XRAY Chest (1 view) In Process Unspecified. EDMS 11:10 EKG done, by ED staff, reviewed by Bg Briones MD. dh3 11:33 Sotero Leigh DO is Hospitalizing Provider. [facility] 13:50 CT completed. Patient tolerated procedure well. Patient moved back from CT. 14:12 Patient admitted, IV remains in place. intact, No redness/swelling at site. sg 14:13 No provider procedures requiring assistance completed. sg Administered Medications: 10:30 Drug: Albuterol - atroVENT (3:1) (2.5 mg - 0.5 mg) 3 ml Route: Nebulizer; sg 11:00 Follow up: Response: No adverse reaction sg 10:35 Drug: SOLU-Medrol 125 mg Route: IVP; Site: right hand; sg 11:00 Follow up: Response: No adverse reaction sg 11:10 Drug: NS 0.9% 1000 ml Route: IV; Rate: 125 ml/hr; Site: right hand; sg 11:10 Drug: Decadron - Dexamethasone 10 mg Route: IVP; Site: right hand; sg 12:00 Follow up: Response: No adverse reaction sg 11:12 Drug: Albuterol 2.5 mg Route: Inhalation; sg 11:40 Drug: Zosyn 3.375 grams Route: IVPB; Infused Over: 60 mins; Site: right hand; sg 12:38 Follow up: Response: No adverse reaction; IV Status: Completed infusion sg 12:20 Not Given (Physician Discretion): levofloxacin 250 mg 50 ml IVPB once over 60 mins sg 12:21 Not Given (Physician Discretion): levofloxacin 500 mg 100 ml IVPB once over 60 mins sg 12:38 Drug: LevaQUIN 750 mg Volume: 150 ml; Route: IVPB; Infused Over: 90 mins; Site: right sg hand; 14:00 Follow up: Response: No adverse reaction; IV Status: Completed infusion sg 14:10 Drug: Demerol 25 mg Route: IVP; Site: right hand; sg 15:00 Follow up: Response: No adverse reaction; Pain is decreased sg 15:37 Not Given (Physician Discretion): Demerol 25 mg IVP once sg Outcome: 11:35 Decision to Hospitalize by Provider. akash 15:37 Patient left the ED. sg Signatures: Dispatcher [employer] Charlotte Suarez RN RN sv Gay, Steven, RN RN sg Anderson, Corey, MD MD cha Hagler, Ervin eh Martinez, Amelia as Attema, Lee, RN RN Gayle Aburto Leslie la2
--- NOTE | 2019-02-12 11:37 | RAD REPORT ---
EXAM DESCRIPTION: RAD - Chest Single View - 02/12/2019 11:06 am CLINICAL HISTORY: Cough, pneumonia, COPD COMPARISON: February 2019 TECHNIQUE: AP portable chest image was obtained 1044 hours . FINDINGS: No peripheral mass or consolidation seen. Lung markings are prominent at each base but not clearly different. No significant failure or volume overload. Heart and vasculature are normal. No m easurable pleural effusion and no pneumothorax. No acute bony abnormality seen. No acute aortic findi ngs suspected. IMPRESSION: No focal mass or consolidation. Lung base interstitial pattern not significantly different from comparison.
[2019-02-12 11:39] LABS: ALT/SGPT 37 U/L (12-78); AST/SGOT 15 U/L (15-37); Alkaline Phosphatase 98 U/L (45-117); BUN Blood Urea Nitrogen 14 mg/dL (7-18); Bicarbonate 26 mmol/L (21-32); Bilirubin Direct < 0.1 mg/dL (0-0.2); Bilirubin Total 0.2 mg/dL (0.2-1.0); Glucose Level 217 mg/dL (74-106); Magnesium 2.1 mg/dL (1.8-2.4); NT PRO-BNP 46 pg/mL (<125); Potassium 4.3 mmol/L (3.5-5.1); Sodium Level 138 mmol/L (136-145); Troponin (Emerg Dept Use Only) < 0.02 ng/mL (0.0-0.045)
[2019-02-12] MEDS ORDERED: Levofloxacin500mg IV 500 MG/100 ML BAG IV ONE (11:40)
[2019-02-12] MEDS ORDERED: PIPER/TAZO/NS 3.375gm 3.375 GM/100 ML BAG ONE (11:40)
--- NOTE | 2019-02-12 11:55 | P.HP ---
Certification for Inpatient Patient admitted to: Inpatient With expected LOS: >2 Midnights Patient will require the following post-hospital care: None Practitioner: I am a practitioner with admitting privileges, knowledge of patient current condition, hospital course, and medical plan of care. Services: Services provided to patient in accordance with Admission requirements found in Title 42 Section 412.3 of the Code of Federal Regulations Patient History Date of Service: 02/12/19 Primary Care Provider: Dr. Michaels; Pulmonary-Dr. Martinez Reason for admission: Shortness of breath History of Present Illness: 48-year-old male presented to the emergency room with shortness of breath. The patient was actually seen last night for cough, shortness of breath over the last several days. Patient was evaluated and treated in the emergency room. He was found to have bilateral pneumonia. Patient also with history of COPD on chronic steroids, tobacco abuse and hypertension. The patient was to be admitted but the patient preferred to go home. He apparently went to work this morning but continued to have increasing shortness of breath. He came to the ER for further evaluation. Patient denies any fever. Patient has been using his inhalers. In the ER patient evaluated. Room-air saturations were 84% on room air. Patient was tachycardic and tachypneic. On lab white count 23. Percent neutrophils 53. 3 bands noted. BMP [place] reviewed. Chest x-rays shows possible bilateral pneumonia versus atelectasis. Patient was given breathing treatments the emergency room. He was admitted for treatment. In the ER, the patient was having labored breathing when talking. His oxygen sats would decrease at times. Patient does not appear septic. Patient stable at this time. Patient admits smoking 1 pack per day. He is trying to quit entirely. The patient no longer drinks alcohol. Allergies Lisinopril Adverse Reaction (Mild, Uncoded 02/11/18 13:05) Shortness of breath Home medications list reviewed: Yes Home Medications: Amlodipine [Norvasc*] 1 tab PO BEDTIME 07/19/18 Thiamine Mononitrate [Vitamin B-1] 1 tab PO BID 07/19/18 predniSONE [Prednisone*] 20 mg PO DAILY 09/06/18 Albuterol Neb [Proventil 0.083% Neb Soln] 2.5 mg NEB [id number] PRN amp 09/07/18 Tiotropium Loris [Spiriva] 18 mcg IH DAILY #30 cap.w.dev 10/20/18 Folic Acid 1 mg PO DAILY #30 tablet 11/15/18 chlordiazePOXIDE HCl [Librium*] 25 mg PO Q8H #60 cap 11/15/18 - Past Medical/Surgical History Diabetic: No -: Hypertension -: COPD on chronic steroids -: Tobacco abuse -: Former alcohol use -: GERD -: Obesity -: 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 - Family History Mother -: Diabetes, Cancer Notes: colon cancer Father -: Lung disease Notes: COPD - Social History Smoking Status: Heavy Tobacco smoker (>10 cigarettes/day) Counseled patient to stop smoking for: less than 10 minutes Smoking therapy provided: Yes Patient receptive to therapy: Yes Alcohol use: Yes CD- Drugs: No Caffeine use: Yes Place of Residence: Home Review of Systems General: Weakness Eyes: Unremarkable ENT: Nose Congestion, As per HPI Respiratory: Cough, Shortness of Breath, SOB with Excertion, Wheezing, As per HPI Cardiovascular: Unremarkable Gastrointestinal: Unremarkable Genitourinary: Unremarkable Musculoskeletal: Unremarkable Integumentary: Unremarkable Neurological: Unremarkable Lymphatics: Unremarkable Physical Examination - Physical Exam General: Alert, Oriented x3, Cooperative, Mild distress HEENT: Atraumatic, Normocephalic, PERRLA, Other (Some nasal congestion noted bilateral) Neck: Supple, No Thyromegaly Respiratory: Crackles/rales (Bilateral), Expiratory wheezes (Bilateral), Inspiratory wheezes (Bilateral) Cardiovascular: Abnormal pulses (Sinus tachycardia) Gastrointestinal: Normal bowel sounds, Soft and benign, Non-distended, No ascites, No tenderness, No masses, No rebound, No guarding Musculoskeletal: No erythema, No tenderness, No warmth Integumentary: No erythema, No warmth, No cyanosis, Tenderness/swelling ( Minimal pitting edema to the lower extremities.) Neurological: Normal speech, Normal strength at 5/5 x4 extr, Normal tone, Normal affect - Studies Laboratory Data (last 24 hrs) 02/12/19 10:46: PT 10.6, INR 0.89 02/12/19 10:46: WBC 23.0 H*, Hgb 15.4, Hct 45.0, Plt Count 329 02/12/19 10:46: Sodium 138, Potassium 4.3, BUN 14, Creatinine 0.91, Glucose 217 H, Magnesium 2.1, Total Bilirubin 0.2, AST 15, ALT 37, Alkaline Phosphatase 98 Microbiology Data (last 24 hrs): 02/12/19 10:32 Nasopharnyx Influenza Type A Antigen Screen - Final 02/12/19 10:32 Nasopharnyx Influenza Type B Antigen Screen - Final Assessment and Plan - Plan Impression: Shortness of breath secondary to COPD exacerbation complicated with bilateral pneumonia, failed outpatient therapy Patient on chronic steroids Hypertension Hyperglycemia suspect diabetes mellitus type 2 Tobacco abuse Obesity Plan: Shortness of breath secondary to COPD exacerbation complicated with bilateral pneumonia, failed outpatient therapy: Patient will be admitted for further treatment. Will obtain sputum and blood cultures. Will evaluate for influenza. Will continue with Levaquin IV. Will start IV fluids. Continue COPD treatment. Respiratory consulted to maintain sats above 90%. Pulmonology consulted to further evaluate. Patient is seen by pulmonology as an outpatient. Patient on chronic steroids. Will start oral steroids at this time. Will provide DVT prophylaxis-Lovenox. Will continue to monitor closely. Recheck chest x-ray tomorrow. Anticipate discharge in the next 48-72 hr. Patient on chronic steroids: Continue oral steroids. Hypertension: Will need to obtain home medications and restart. Will provide Norvasc and metoprolol at this time. Hyperglycemia suspect diabetes mellitus type 2: Patient with hyperglycemia. Patient on chronic steroids. Will need to evaluate for diabetes mellitus type 2. Will check A1c. Will provide insulin sliding scale. Tobacco abuse: Tobacco cessation education addressed in detail. Patient counseled for at least 3 min. Will provide nicotine patch. Patient not allowed to go outside to smoke. Paid understands this. Obesity: Will address lifestyle modification education. Discharge Plan: Home Plan to discharge in: 72 Hours - Advance Directives Does patient have a Living Will: No Does patient have a Durable POA for Healthcare: No - Code Status/Comfort Care Code Status Assessed: Yes (Patient full code.) Time Spent Managing Pts Care (In Minutes): 55
[2019-02-12 12:12] LABS: Urine Blood NEGATIVE (NEG); Urine Glucose 1+ (NEG); Urine Protein NEGATIVE (NEG); Urine pH 6.5 (5.0-7.0)
[2019-02-12] MEDS ORDERED: Levofloxacin 750mg IV 750 MG/150 ML BAG IV ONE (12:16)
--- NOTE | 2019-02-12 14:16 | RAD REPORT ---
EXAM DESCRIPTION: CT - Chest For Pe Angio - 02/12/2019 1:50 pm CLINICAL HISTORY: Chest pain, shortness of breath COMPARISON: Chest film same date, CT chest July 2018 TECHNIQUE: Dynamically enhanced 3 mm thick images of the chest were obtained during administration o f approximately 150mL Isovue 370 IV contrast. Coronal and oblique MIP reconstruction images were gene rated and reviewed. Exam utilizes a protocol to evaluate the pulmonary arterial tree. All CT scans are performed using dose optimization technique as appropriate and may include automated exposure control or mA/KV adjustment according to patient size. FINDINGS: No pulmonary emboli are identified. The aorta as imaged shows no acute or suspicious finding. No pericardial thickening or effusion. Numerous scattered alveolar opacities are present in each upper lobe. Interstitial and alveolar opaci fication present in each posterior lung base. No pleural effusion or pleural thickening. No mediastinal or hilar suspicious masses. No chest wall masses or abnormal axillary lymphadenopathy. IMPRESSION: No pulmonary emboli identified. Patchy pneumonia changes scattered in the bilateral upper lobes. Bilateral posterior lung base opacification is present likely a mix of atelectasis and pneumonia.
[2019-02-12] MEDS: NA CHLORIDE 0.9% 1,000 ML IV SCH ×2 (15:31→20:38)
[2019-02-12] MEDS ORDERED: ONDANSETRON 4 MG/2 ML VIAL IV PRN (15:31)
[2019-02-12] MEDS ORDERED: Levofloxacin 750mg IV 750 MG/150 ML BAG IV SCH (15:31)
[2019-02-12] MEDS ORDERED: BENZONATATE 100 MG CAP PO PRN (15:31)
[2019-02-12] MEDS: ALBUTEROL 2.5 MG/3 ML NEB SOL NEB PRN (15:39)
[2019-02-12] MEDS: IPRATROPIUM BROM 0.5MG/2.5ML NEB PRN (15:39)
[2019-02-12] MEDS: METOPROLOL TAR 25 MG TAB PO SCH (16:04)
[2019-02-12] MEDS: ENOXAPARIN 40 MG/0.4 ML SQ SCH (16:05)
[2019-02-12] MEDS: INSULIN -REGULAR HUMAN 50 UNIT/0.5 ML ML SQ SCH ×2 (16:30→21:00)
[2019-02-12] MEDS ORDERED: TRAMADOL HCL 50 MG TAB PO PRN (18:32)
[2019-02-12 19:11] LABS: Urine Appearance CLEAR; Urine Bilirubin NEGATIVE (NEG); Urine Blood NEGATIVE (NEG); Urine Color YELLOW; Urine Glucose 3+ (NEG); Urine Protein NEGATIVE (NEG); Urine Specific Gravity >=1.030 (1.005-1.030); Urine Urobilinogen 0.2 mg/dL (0.2-1.0); Urine pH 5.5 (5.0-7.0)
[2019-02-12 19:28] LABS: Urine Microscopic Reflex NO UMIC
[2019-02-12] MEDS: HYDROCODONE/APAP 7.5/325 MG TAB PO PRN (19:30)
[2019-02-12] MEDS: ARFORMOTEROL TARTRATE 15 MCG/2 ML VIAL.NEB NEB SCH (20:15)
[2019-02-12] MEDS: GUAIFENESIN 600 MG SA TAB PO SCH (20:37)
[2019-02-12] MEDS: predniSONE 20 MG TAB PO SCH (20:38)
[2019-02-13 04:14] LABS: Absolute Lymphocytes (CBC) 1.1 K/uL (0.7-4.9); Absolute Monocytes 0.8 K/uL (0.1-1.3); Basophils % 0.2 % (0-1.3); Hematocrit 43.9 % (39.6-49.0); Lymphocytes % 4.4 % (15.3-44.8); MPV 7.3 fL (7.6-11.3); Monocytes % 3.3 % (3.3-12.3)
[2019-02-13 04:40] LABS: BUN Blood Urea Nitrogen 14 mg/dL (7-18); Bicarbonate 29 mmol/L (21-32); Glucose Level 191 mg/dL (74-106); Potassium 4.5 mmol/L (3.5-5.1); Sodium Level 139 mmol/L (136-145)
[2019-02-13 04:57] LABS: Arterial Blood Carboxyhemoglob 1.3 % (0-1.5); Blood Gas Oxyhemoglobin 85.9 % (94-97); Blood O2 Saturation 87.8 % (92-98.5)
[2019-02-13 05:10] LABS: Blood Morphology Comment NOT SEEN (NOT SEEN); Platelet Estimate ADEQ; Urine White Blood Cell Casts OK
[2019-02-13] MEDS: HYDROCODONE/APAP 7.5/325 MG TAB PO PRN (06:53)
[2019-02-13] MEDS: METOPROLOL TAR 25 MG TAB PO SCH ×2 (06:54→17:09)
[2019-02-13] MEDS: NA CHLORIDE 0.9% 1,000 ML IV SCH (06:54)
[2019-02-13] MEDS: INSULIN -REGULAR HUMAN 50 UNIT/0.5 ML ML SQ SCH ×4 (07:30→21:00)
[2019-02-13] MEDS: ALBUTEROL 2.5 MG/3 ML NEB SOL NEB PRN ×2 (08:35→20:06)
[2019-02-13] MEDS: ARFORMOTEROL TARTRATE 15 MCG/2 ML VIAL.NEB NEB SCH ×2 (08:35→20:06)
[2019-02-13] MEDS: IPRATROPIUM BROM 0.5MG/2.5ML NEB PRN ×2 (08:36→20:06)
--- NOTE | 2019-02-13 08:45 | P.PN ---
Subjective Date of Service: 02/13/19 Primary Care Provider: Dr. Michaels; Pulmonary-Dr. Martinez Chief Complaint: Shortness of breath Subjective: Other (Patient apparently went downstairs early this morning to smoke. Nurses report he was having increasing shortness of breath. Patient was then placed on BiPAP. Patient stable in his room.) Physical Examination - Vital Signs Temperature: 99.0 F Blood Pressure: 135/77 Pulse: 101 Respirations: 25 Pulse Ox (%): 90 - Physical Exam General: Alert, In no apparent distress, Cooperative, Other (Patient currently on BiPAP) HEENT: Atraumatic Neck: Supple Respiratory: Crackles/rales (Bilateral), Expiratory wheezes (Bilateral), Inspiratory wheezes (Bilateral) Cardiovascular: Normal pulses, Regular rate/rhythm Gastrointestinal: Normal bowel sounds, Soft and benign, Non-distended, No tenderness, No masses, No rebound, No guarding Musculoskeletal: No erythema, No tenderness, No warmth Integumentary: No tenderness/swelling, No erythema, No warmth, No cyanosis Neurological: Normal speech, Normal strength at 5/5 x4 extr, Normal tone, Normal affect - Studies Laboratory Data (last 24 hrs) 02/12/19 10:46: PT 10.6, INR 0.89 02/12/19 10:46: WBC 23.0 H*, Hgb 15.4, Hct 45.0, Plt Count 329 02/12/19 10:46: Sodium 138, Potassium 4.3, BUN 14, Creatinine 0.91, Glucose 217 H, Magnesium 2.1, Total Bilirubin 0.2, AST 15, ALT 37, Alkaline Phosphatase 98 Microbiology Data (last 24 hrs): 02/12/19 10:32 Nasopharnyx Influenza Type A Antigen Screen - Final 02/12/19 10:32 Nasopharnyx Influenza Type B Antigen Screen - Final Medications List Reviewed: Yes Assessment & Plan Discharge Plan: Home Plan to discharge in: Greater than 2 days Physician Review Additional Text: Impression: Shortness of breath secondary to COPD exacerbation complicated with bilateral pneumonia, failed outpatient therapy Patient on chronic steroids Hypertension Hyperglycemia suspect diabetes mellitus type 2 Tobacco abuse Obesity, BMI 36 Plan: Shortness of breath secondary to COPD exacerbation complicated with bilateral pneumonia, failed outpatient therapy: Patient apparently went downstairs to smoke. Patient had increasing shortness of breath off oxygen. Patient was placed on BiPAP. Currently stable this time. Patient had been counseled at admission on not to go outside. Patient counseled again on not going downstairs to smoke. Patient understands this. Patient understands the importance of remaining the room to continue his care. Will continue with BiPAP and wean off. Maintain sats above 90%. Will continue with IV Levaquin and COPD treatment. CT scan yesterday showed no pulmonary embolism. Bilateral pneumonia noted. Will to further evaluate. Patient seen by pulmonology as an outpatient. Will continue monitor closely. Will provide nicotine patch for the patient. Will ask charge nurse to move patient closer to the nurse station so that he can be monitored and make sure that he does not go outside. Continue DVT prophylaxis. Will provide medication for cough and congestion. I will turn the service over to the hospitalist team tomorrow. I will go over the plan of care with him. Patient on chronic steroids: Continue with oral steroids and COPD treatment. Hypertension: Will need to obtain home medications and restart. Will provide Norvasc and metoprolol at this time. Hold if blood pressure less than 120 systolic. Hyperglycemia suspect diabetes mellitus type 2: Patient with hyperglycemia, suspect diabetes mellitus type 2. Patient on chronic steroids. Will need to evaluate for diabetes mellitus type 2. Will check A1c. Will continue to provide insulin sliding scale and Accu-Cheks. Tobacco abuse: Patient counseled on tobacco cessation. Patient also counseled again on not to go downstairs to smoke. Will provide nicotine patch. This was addressed in detail. Continue as above. Obesity, BMI 36: Will continue to address lifestyle modification education. Time Spent Managing Pts Care (In Minutes): 55
[2019-02-13] MEDS: ASPIRIN EC 81 MG TAB PO SCH (09:00)
[2019-02-13] MEDS: GUAIFENESIN 600 MG SA TAB PO SCH ×2 (09:00→21:00)
[2019-02-13] MEDS: AMLODIPINE 5 MG TAB PO SCH (09:00)
[2019-02-13] MEDS: predniSONE 20 MG TAB PO SCH (09:00)
[2019-02-13] MEDS: NICOTINE 21 MG/PAT TD SCH (09:55)
[2019-02-13] MEDS: Levofloxacin 750mg IV 750 MG/150 ML BAG IV SCH (09:56)
--- NOTE | 2019-02-13 10:27 | RAD REPORT ---
EXAM DESCRIPTION: RAD - Chest Single View - 02/13/2019 9:18 am CLINICAL HISTORY: follow up pneumonia Chest pain. COMPARISON: Chest Single View dated 02/12/2019; Chest Single View dated 02/11/2019; Chest Single View da sanjay 01/20/2019; Chest Single View dated 11/14/2018 FINDINGS: Portable technique limits examination quality. Airspace opacities are present in both lower lobes bilaterally appearing progressive since the compar ative study. Small bilateral pleural effusions. The heart is normal in size. No displaced fractures. IMPRESSION: Moderate worsening in bibasilar pneumonia pattern since comparative study.
[2019-02-13] MEDS ORDERED: METHYLPREDNISOLONE 125 MG INJ IV SCH (12:51)
[2019-02-13] MEDS ORDERED: FUROSEMIDE 20 MG/ 2ML VIAL IV SCH (12:56)
[2019-02-13] MEDS ORDERED: FUROSEMIDE 20 MG/ 2ML VIAL ONE (13:18)
[2019-02-13 13:29] LABS: Arterial Blood Carboxyhemoglob 1.2 % (0-1.5); Blood Gas Oxyhemoglobin 83.5 % (94-97); Blood O2 Saturation 85.2 % (92-98.5)
[2019-02-13] MEDS: METHYLPREDNISOLONE 125 MG INJ IV SCH ×2 (13:45→20:25)
[2019-02-13] MEDS ORDERED: VANCOMYCIN 2.5 GM in NA CHLORIDE 0.9% 500 ML IVPB SCH (14:00)
[2019-02-13] MEDS ORDERED: GLUCAGON 1 MG/VIAL IM PRN (15:12)
[2019-02-13] MEDS ORDERED: D50W 25 GM/50 ML SYRINGE IV PRN (15:12)
--- NOTE | 2019-02-13 15:29 | RAD REPORT ---
EXAM DESCRIPTION: RAD - Chest Single View - 02/13/2019 2:16 pm CLINICAL HISTORY: Worsening SOB Chest pain. COMPARISON: Chest Single View dated 02/13/2019; Chest Single View dated 02/12/2019; Chest Single View da sanjay 02/11/2019; Chest Single View dated 01/20/2019 FINDINGS: Portable technique limits examination quality. Moderate worsening bilateral alveolar lung infiltrate seen with small bilateral pleural effusions. Th e heart is mildly enlarged in size. No displaced fractures. IMPRESSION: Moderate worsening of bilateral alveolar lung opacities with small pleural effusions. Gi dana the rapid progression of these opacities, CHF/volume overload is favored.
[2019-02-13] MEDS ORDERED: RSI MEDICATION KIT IV ONE (16:20)
[2019-02-13] MEDS ORDERED: PROPOFOL 1,000 MG/100 ML VIAL IV ONE (16:21)
[2019-02-13] MEDS ORDERED: MIDAZOLAM HCL 2 MG/2 ML INJ ONE (17:04)
[2019-02-13] MEDS ORDERED: LORazepam 2 MG/ML VIAL ONE (17:05)
[2019-02-13] MEDS: ENOXAPARIN 40 MG/0.4 ML SQ SCH (17:36)
[2019-02-13 17:49] LABS: Arterial Blood Carboxyhemoglob 1.2 % (0-1.5); Blood Gas Oxyhemoglobin 90.9 % (94-97); Blood O2 Saturation 92.8 % (92-98.5)
[2019-02-13] MEDS: PROPOFOL 1,000 MG/100 ML VIAL IV PRN ×2 (18:24→21:35)
--- NOTE | 2019-02-13 18:35 | RAD REPORT ---
EXAM DESCRIPTION: RAD - Chest Single View - 02/13/2019 5:12 pm CLINICAL HISTORY: E-Tube Placement Chest pain. COMPARISON: Chest Single View dated 02/13/2019; Chest Single View dated 02/13/2019; Chest Single View da sanjay 02/12/2019; Chest Single View dated 02/11/2019 FINDINGS: Portable technique limits examination quality. Tip of the ET tube is above the juani. Enteric tube descends into the upper abdomen likely within th e stomach. Extensive bilateral pulmonary opacities again noted, mildly worsened since recent comparat emily chest radiograph. The heart is mildly enlarged in size.
[2019-02-13] MEDS: FAMOTIDINE 20 MG/2 ML VIAL IV SCH (20:25)
[2019-02-13 22:56] LABS: Arterial Blood Carboxyhemoglob 1.2 % (0-1.5); Blood Gas Oxyhemoglobin 89.1 % (94-97); Blood O2 Saturation 90.8 % (92-98.5)
[2019-02-14] MEDS: IPRATROPIUM BROM 0.5MG/2.5ML NEB PRN ×2 (01:20→08:24)
[2019-02-14] MEDS: ALBUTEROL 2.5 MG/3 ML NEB SOL NEB PRN ×2 (01:20→08:24)
[2019-02-14] MEDS: VANCOMYCIN 1.75 GM in NA CHLORIDE 0.9% 500 ML IVPB SCH ×2 (02:01→15:35)
[2019-02-14] MEDS: FENTANYL CITR 100 MCG/2 ML IV PRN ×4 (03:40→18:48)
[2019-02-14 05:12] LABS: Absolute Lymphocytes (CBC) 0.9 K/uL (0.7-4.9); Absolute Monocytes 0.6 K/uL (0.1-1.3); Absolute Neutrophil 15.4 K/uL (1.8-8.0); Basophils % 0.4 % (0-1.3); Eosinophils % 0.2 % (0-4.4); Hematocrit 39.2 % (39.6-49.0); Lymphocytes % 5.4 % (15.3-44.8); MPV 7.5 fL (7.6-11.3); Monocytes % 3.6 % (3.3-12.3); RBC Red Blood Cell Count 4.01 M/uL (4.33-5.43)
[2019-02-14] MEDS: MIDAZOLAM HCL 2 MG/2 ML INJ IV PRN (05:23)
[2019-02-14 05:26] LABS: Arterial Blood Carboxyhemoglob 1.1 % (0-1.5); Blood Gas Oxyhemoglobin 90.7 % (94-97); Blood O2 Saturation 92.5 % (92-98.5)
[2019-02-14 05:27] LABS: BUN Blood Urea Nitrogen 17 mg/dL (7-18); Bicarbonate 32 mmol/L (21-32); Glucose Level 206 mg/dL (74-106); Magnesium 2.4 mg/dL (1.8-2.4); Potassium 4.1 mmol/L (3.5-5.1); Sodium Level 140 mmol/L (136-145)
[2019-02-14] MEDS: PROPOFOL 1,000 MG/100 ML VIAL IV PRN ×5 (05:29→21:32)
[2019-02-14] MEDS: METOPROLOL TAR 25 MG TAB PO SCH ×2 (06:00→17:43)
[2019-02-14] MEDS: LORazepam 2 MG/ML VIAL IV PRN ×3 (07:14→20:30)
[2019-02-14] MEDS: INSULIN -REGULAR HUMAN 50 UNIT/0.5 ML ML SQ SCH ×3 (07:16→17:46)
[2019-02-14] MEDS: ARFORMOTEROL TARTRATE 15 MCG/2 ML VIAL.NEB NEB SCH ×2 (08:24→20:00)
[2019-02-14] MEDS: FAMOTIDINE 20 MG/2 ML VIAL IV SCH ×2 (08:42→20:44)
[2019-02-14] MEDS: METHYLPREDNISOLONE 125 MG INJ IV SCH ×4 (08:42→20:30)
--- NOTE | 2019-02-14 08:42 | RAD REPORT ---
EXAM DESCRIPTION: RAD - Chest Single View - 02/14/2019 8:32 am CLINICAL HISTORY: Respiratory distress, intubation COMPARISON: February 13 TECHNIQUE: AP portable chest image was obtained 0828 hours . FINDINGS: Endotracheal tube and NG tube remain in place. No change of positioning. Consolidation in the right midlung field has improved with substantial infiltrate remaining. Mid and lower left lung field opacification also shows a fractional improvement but still substantial edema o r infiltrate present. Heart size normal for portable imaging. Vasculature is prominent. No measurable pleural effusion and no pneumothorax. No acute bony abnormality seen. No acute aortic findings suspected. IMPRESSION: Partial clearing of bilateral airspace consolidation. Substantial opacification remains in each lung field. Tubes and lines in good position.
[2019-02-14] MEDS: NICOTINE 21 MG/PAT TD SCH (08:43)
[2019-02-14] MEDS: Levofloxacin 750mg IV 750 MG/150 ML BAG IV SCH (08:44)
--- NOTE | 2019-02-14 08:46 | P.CNS ---
Date of Consult: 02/14/19 Primary Care Provider: Dr. Michaels; Pulmonary-Dr. Martinez Chief Complaint: Respiratory failure History of Present Illness: Patient is 48 years of age with a history of COPD admitted with worsening dyspnea became very hypoxic transferred to the ICU and was intubated requiring high concentrations of oxygen and sedation. He still continues to smoke heavily in fact patient went down to smoke before he got intubated chest x-ray shows bilateral pneumonia this currently minimally responsive on propofol on a ventilator quit drinking 90 days ago the relatives present at bedside Allergies Lisinopril Adverse Reaction (Mild, Uncoded 02/11/18 13:05) Shortness of breath Home Medications: Amlodipine [Norvasc*] 1 tab PO BEDTIME 07/19/18 Thiamine Mononitrate [Vitamin B-1] 1 tab PO BID 07/19/18 predniSONE [Prednisone*] 20 mg PO DAILY 09/06/18 Tiotropium [place] [Spiriva] 18 mcg IH DAILY #30 cap.w.dev 10/20/18 Folic Acid 1 mg PO DAILY #30 tablet 11/15/18 chlordiazePOXIDE HCl [Librium*] 25 mg PO Q8H #60 cap 11/15/18 LORazepam [Lorazepam] 1 tab PO BEDTIME PRN 02/12/19 Esomeprazole Mag Trihydrate [Nexium] 1 tab PO DAILY 02/13/19 - Past Medical/Surgical History Diabetic: No -: Hypertension -: COPD on chronic steroids -: Tobacco abuse -: Former alcohol use -: GERD -: Obesity -: 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 - Family History Mother Medical History: Diabetes, Cancer Notes: colon cancer Father Medical History: Lung disease Notes: COPD - Social History Smoking Status: Current every day smoker Alcohol use: No CD- Drugs: No Caffeine use: Yes Place of Residence: Home Review of Systems is unable to be obtained Physical Examination Temp Pulse Resp BP Pulse Ox 98.4 F 82 16 105/67 96 02/14/19 04:00 02/14/19 08:00 02/14/19 08:00 02/14/19 08:00 02/14/19 08:00 General: Unresponsive HEENT: Atraumatic Neck: Supple Respiratory: Crackles/rales, Expiratory wheezes Cardiovascular: No edema, Regular rate/rhythm, Normal S1 S2 Gastrointestinal: Normal bowel sounds, Soft and benign - Problems (1) Respiratory failure Current Visit: Yes Status: Acute Plan: Patient is 48 years of age admitted with respiratory failure he has COPD bilateral pneumonia very hypoxic white count is declining blood pressure is stable patient has 2+ gram-negative rods in the sputum possibly Pseudomonas chemistries are unremarkable otherwise he still continues to remain hypoxic Qualifiers: Chronicity: acute on chronic
[2019-02-14] MEDS: AMLODIPINE 5 MG TAB PO SCH (08:59)
[2019-02-14] MEDS: GUAIFENESIN 600 MG SA TAB PO SCH ×2 (08:59→20:42)
[2019-02-14] MEDS: ASPIRIN EC 81 MG TAB PO SCH (10:15)
[2019-02-14] MEDS: THIAMINE 200 MG/2 ML INJ IVP SCH (10:15)
[2019-02-14] MEDS ORDERED: SUCCINYLCHOLINE 20 MG/ML (10 ML) IV ONE (11:27)
[2019-02-14 13:01] LABS: Arterial Blood Carboxyhemoglob 1.2 % (0-1.5); Blood Gas Oxyhemoglobin 86.9 % (94-97); Blood O2 Saturation 88.7 % (92-98.5)
[2019-02-14] MEDS: IPRATROPIUM BROM 0.5MG/2.5ML NEB SCH ×2 (13:38→20:00)
--- NOTE | 2019-02-14 14:26 | P.PN ---
Subjective Date of Service: 02/14/19 Primary Care Provider: Dr. Michaels; Pulmonary-Dr. Martinez Chief Complaint: Respiratory failure Overnight Pt with ARF and was intubated. Pt currently remained intubated and sedated. RN Denies any fever, chills or any other adverse event this AM. Sputum culture + for Gram - rods Review of Systems 10-point ROS is otherwise unremarkable Physical Examination - Vital Signs Temperature: 98.4 F Blood Pressure: 115/73 Pulse: 81 Respirations: 16 Pulse Ox (%): 93 - Physical Exam General: Mild distress, Other (Intubated and sedated) Respiratory: Normal air movement, Crackles/rales, Rhonchi/gurgles Cardiovascular: Regular rate/rhythm, Normal S1 S2 Gastrointestinal: Normal bowel sounds, No tenderness Musculoskeletal: No tenderness Integumentary: No rashes Neurological: Cranial nerves 3-12 intact Lymphatics: No axilla or inguinal lymphadenopathy - Studies Medications List Reviewed: Yes Assessment And Plan - Current Problems (Diagnosis) (1) Respiratory failure Current Visit: Yes Status: Acute Plan: Acute on chronic Respiratory Failure most likely 2.2 to PNA vs tobacco abuse -Currently Intubated and sedated. Will wean as tolerated -Pulmonology consulted. Appreciate Reccs -On IV Vanc added zosyn today for sputum culture + for gram - rods -On Vent Protocol -Blood culture cancelled previously. Collected again today -maintain on Vent and wean as tolerated. -Labs and xray in AM Qualifiers: Chronicity: acute on chronic (2) COPD exacerbation Onset Date: 09/07/18 Current Visit: No Status: Acute Plan: COPD exacerbation 2.2 to PNA and smoking -Duonebs, Steroids and Currently intubated and sedated. (3) Pneumonia of both lower lobes Onset Date: 07/20/18 Current Visit: No Status: Acute Plan: PNA of BL LL. High risk for MRSA and Pseudomonas given the h/o smoking and alcohol -IV Vanc and zosyn -Sputum Culture pending Qualifiers: Pneumonia type: due to unspecified organism Qualified Code(s): J18.1 - Lobar pneumonia, unspecified organism (4) HTN (hypertension) Onset Date: 02/11/18 Current Visit: No Status: Chronic Plan: On Home medication Qualifiers: Hypertension type: essential hypertension (5) Tobacco abuse Onset Date: 02/11/18 Current Visit: No Status: Chronic Plan: Smoking cessation once Extubated - Plan Pending clinical Improvement. Will wean and extubate at tolerated. continue with IV abx. F.u culture Discharge Plan: Other Plan to discharge in: Greater than 2 days - Code Status/Comfort Care Code Status Assessed: Yes Code Status: Full Code Critical Care: Yes Time Spent Managing PTS Care (In Minutes): 35
[2019-02-14] MEDS: ENOXAPARIN 40 MG/0.4 ML SQ SCH (17:44)
--- NOTE | 2019-02-14 17:56 | RAD REPORT ---
EXAM DESCRIPTION: US - BREAST/AXILLA, LIMITED - 02/14/2019 5:47 pm CLINICAL HISTORY: lumps left breast COMPARISON: BREAST/AXILLA, COMPLETE dated 10/19/2018BREAST/AXILLA, COMPLETE dated 10/19/2018 FINDINGS: A limited left breast sonogram was requested to the area of palpable abnormality and redne ss. Retroareolar region was also assessed. No left breast mass or cyst is identified on limited examination. No ductal ectasia identified.
[2019-02-15] MEDS: PROPOFOL 1,000 MG/100 ML VIAL IV PRN ×6 (01:43→21:32)
[2019-02-15] MEDS: IPRATROPIUM BROM 0.5MG/2.5ML NEB SCH ×4 (02:00→20:00)
[2019-02-15] MEDS: VANCOMYCIN 1.75 GM in NA CHLORIDE 0.9% 500 ML IVPB SCH (02:31)
[2019-02-15] MEDS: FENTANYL CITR 100 MCG/2 ML IV PRN ×3 (04:04→11:53)
[2019-02-15 05:32] LABS: Absolute Lymphocytes (CBC) 1.2 K/uL (0.7-4.9); Absolute Monocytes 0.8 K/uL (0.1-1.3); Basophils % 0.3 % (0-1.3); Eosinophils % 0.1 % (0-4.4); Hematocrit 37.8 % (39.6-49.0); Lymphocytes % 7.7 % (15.3-44.8); MPV 7.4 fL (7.6-11.3); Monocytes % 4.9 % (3.3-12.3); RBC Red Blood Cell Count 3.85 M/uL (4.33-5.43)
[2019-02-15] MEDS: INSULIN -REGULAR HUMAN 50 UNIT/0.5 ML ML SQ SCH ×4 (05:41→17:23)
[2019-02-15] MEDS: METOPROLOL TAR 25 MG TAB PO SCH ×2 (05:43→17:26)
[2019-02-15 05:47] LABS: BUN Blood Urea Nitrogen 24 mg/dL (7-18); Bicarbonate 31 mmol/L (21-32); Glucose Level 180 mg/dL (74-106); Magnesium 2.6 mg/dL (1.8-2.4); Potassium 4.1 mmol/L (3.5-5.1); Sodium Level 143 mmol/L (136-145)
[2019-02-15] MEDS: ARFORMOTEROL TARTRATE 15 MCG/2 ML VIAL.NEB NEB SCH ×2 (07:45→20:00)
--- NOTE | 2019-02-15 08:19 | P.PN ---
Subjective Date of Service: 02/17/19 Primary Care Provider: Dr. Michaels; Pulmonary-Dr. Martinez Chief Complaint: Respiratory failure As condition is stable is still agitated requiring propofol Review of Systems is unable to be obtained Physical Examination - Vital Signs Temperature: 98.8 F Blood Pressure: 128/82 Pulse: 66 Respirations: 15 Pulse Ox (%): 96 - Physical Exam General: Unresponsive (On propofol) Neck: Supple Respiratory: Clear to auscultation bilaterally Cardiovascular: No edema, Normal S1 S2 Gastrointestinal: Normal bowel sounds - Studies Medications List Reviewed: Yes Assessment & Plan - Problems (Diagnosis) (1) Respiratory failure Current Visit: Yes Status: Acute Plan: Patient admitted with acute respiratory failure secondary to pneumonia he also has COPD history of alcoholism tobacco abuse white count is declining vital signs stable oxygen requirement is only 45% E. coli isolated from the sputum probably not significant Dc vancomycin Dc steroids may make him very agitated nicotine patch start on low-dose tube feeds as per dragger out daily chest x-ray white count is declined labs reviewed Qualifiers: Chronicity: acute on chronic Physician Review Additional Text: I
[2019-02-15] MEDS: ASPIRIN EC 81 MG TAB PO SCH (09:00)
[2019-02-15] MEDS: GUAIFENESIN 600 MG SA TAB PO SCH (09:00)
--- NOTE | 2019-02-15 09:05 | RAD REPORT ---
EXAM DESCRIPTION: RAD - Chest Single View - 02/15/2019 8:48 am CLINICAL HISTORY: Pneumonia and respiratory failure Chest pain. COMPARISON: Chest Single View dated 02/14/2019; Chest Single View dated 02/13/2019; Chest Single View da sanjay 02/13/2019; Chest Single View dated 02/13/2019 FINDINGS: Portable technique limits examination quality. Moderate improvement is seen in bilateral pulmonary opacities since the comparative studies. Tip of t he ET tube is above the juani. Enteric tube descends in the stomach. The heart is normal in size. No displaced fractures. IMPRESSION: Moderate improvement in bilateral pulmonary opacities since comparative study.
[2019-02-15] MEDS: THIAMINE 200 MG/2 ML INJ IVP SCH (09:53)
[2019-02-15] MEDS: AMLODIPINE 5 MG TAB PO SCH (09:54)
[2019-02-15] MEDS: Levofloxacin 750mg IV 750 MG/150 ML BAG IV SCH (09:55)
[2019-02-15] MEDS: FAMOTIDINE 20 MG/2 ML VIAL IV SCH ×2 (10:01→20:54)
[2019-02-15] MEDS: NICOTINE 21 MG/PAT TD SCH (10:01)
--- NOTE | 2019-02-15 11:33 | EKG ---
Test Date: 2019-02-12 Test Time: 11:05:43 Contract Consultant: WALE MEASUREMENT RESULTS: Intervals: Rate: 106 RI: 128 QRSD: 102 QT: 348 QTc: 462 [place]: P: 62 RI: 128 QRS: 70 T: 62 INTERPRETIVE STATEMENTS: Sinus tachycardia Possible Left atrial enlargement Incomplete right bundle branch block Borderline ECG Compared to ECG 02/11/2019 19:03:06 Incomplete right bundle-branch block now present Sinus rhythm no longer present Electronically Signed On 02-13-19 10:51:27 CDT by Wilber Ray
--- NOTE | 2019-02-15 11:36 | EKG ---
Test Date: 2019-02-13 Test Time: 16:21:57 Filler Picker: ALAN MEASUREMENT RESULTS: Intervals: Rate: 111 RI: 130 QRSD: 104 QT: 336 QTc: 456 [place]: P: 55 RI: 130 QRS: 84 T: 41 INTERPRETIVE STATEMENTS: Sinus tachycardia Otherwise normal ECG Compared to ECG 02/13/2019 13:16:29 Sinus rhythm no longer present Electronically Signed On 02-14-19 10:51:16 CDT by Wilber Ray
--- NOTE | 2019-02-15 11:37 | EKG ---
Test Date: 2019-02-13 Test Time: 13:16:29 Tilesetter: LORAINE MEASUREMENT RESULTS: Intervals: Rate: 100 [place]: 122 QRSD: 102 QT: 352 QTc: 454 [place]: P: 59 [place]: 122 QRS: 76 T: 41 INTERPRETIVE STATEMENTS: Normal sinus rhythm Normal ECG Compared to ECG 02/12/2019 11:05:43 Sinus tachycardia no longer present Incomplete right bundle-branch block no longer present Electronically Signed On 02-14-19 10:51:44 CDT by Wilber Ray
[2019-02-15] MEDS ORDERED: VITAL AF 1,000 ML BOT FT SCH (12:00)
[2019-02-15] MEDS ORDERED: FENTANYL CITR 100 MCG/2 ML IV ONE (13:47)
[2019-02-15] MEDS: HYDROCODONE/APAP 7.5/325 MG TAB PO PRN (14:14)
[2019-02-15] MEDS: MOXIFLOXACIN HCL 0.5% 3ML OPTH OPTH SCH ×2 (14:37→20:54)
--- NOTE | 2019-02-15 15:13 | P.PN ---
Subjective Date of Service: 02/15/19 Primary Care Provider: Dr. Michaels; Pulmonary-Dr. Martinez Chief Complaint: Respiratory failure Overnight Pt with ARF and was intubated. Pt currently remained intubated and sedated. RN Denies any fever, chills or any other adverse event this AM. Sputum culture + for Gram - rods. Icnrease Sputum production today. Review of Systems 10-point ROS is otherwise unremarkable Physical Examination - Vital Signs Temperature: 98.8 F Blood Pressure: 123/73 Pulse: 76 Respirations: 22 Pulse Ox (%): 90 - Physical Exam General: Mild distress, Other (Intubated and On Sedation) Respiratory: Normal air movement, Crackles/rales, Rhonchi/gurgles Cardiovascular: Regular rate/rhythm, Normal S1 S2 Gastrointestinal: Normal bowel sounds, No tenderness Musculoskeletal: No tenderness Integumentary: No rashes Neurological: Normal tone, Cranial nerves 3-12 intact, Normal affect Lymphatics: No axilla or inguinal lymphadenopathy - Studies Medications List Reviewed: Yes Assessment And Plan - Current Problems (Diagnosis) (1) Respiratory failure Current Visit: Yes Status: Acute Plan: Acute on chronic Respiratory Failure most likely 2.2 to PNA vs tobacco abuse -Currently Intubated and sedated. Will wean as tolerated -Pulmonology consulted. Appreciate Reccs -On IV Vanc added zosyn today for sputum culture + for gram - rods -Blood culture cancelled previously. Collected again yesterday. - thus far -maintain on Vent and wean as tolerated. -Labs and xray in AM Qualifiers: Chronicity: acute on chronic (2) COPD exacerbation Onset Date: 09/07/18 Current Visit: No Status: Acute Plan: COPD exacerbation 2.2 to PNA and smoking -Duonebs, Steroids and Currently intubated and sedated. (3) Pneumonia of both lower lobes Onset Date: 07/20/18 Current Visit: No Status: Acute Plan: PNA of BL LL. High risk for MRSA and Pseudomonas given the h/o smoking and alcohol -IV Vanc and zosyn -Sputum Culture pending Qualifiers: Pneumonia type: due to unspecified organism Qualified Code(s): J18.1 - Lobar pneumonia, unspecified organism (4) HTN (hypertension) Onset Date: 02/11/18 Current Visit: No Status: Chronic Plan: On Home medication Qualifiers: Hypertension type: essential hypertension (5) Tobacco abuse Onset Date: 02/11/18 Current Visit: No Status: Chronic Plan: Smoking cessation once Extubated - Plan Pending clinical Improvement. Will wean and extubate as tolerated. continue with IV abx. F.u culture Discharge Plan: Other Plan to discharge in: Greater than 2 days - Code Status/Comfort Care Code Status Assessed: Yes Critical Care: Yes Time Spent Managing PTS Care (In Minutes): 45
[2019-02-15] MEDS: LORazepam 2 MG/ML VIAL IV PRN ×2 (16:28→21:34)
[2019-02-15] MEDS: ENOXAPARIN 40 MG/0.4 ML SQ SCH (16:28)
[2019-02-15 17:40] VITALS: BMI 35.6
[2019-02-15] MEDS: guaiFENesin 100 MG/5 ML UCUP PO SCH (20:54)
[2019-02-16] MEDS: IPRATROPIUM BROM 0.5MG/2.5ML NEB SCH ×4 (02:00→20:00)
[2019-02-16] MEDS: LORazepam 2 MG/ML VIAL IV PRN ×4 (02:23→23:42)
[2019-02-16] MEDS: PROPOFOL 1,000 MG/100 ML VIAL IV PRN ×3 (02:23→10:07)
[2019-02-16] MEDS: FENTANYL CITR 100 MCG/2 ML IV PRN ×2 (03:44→10:24)
[2019-02-16] MEDS: HALOPERIDOL LACT 5 MG/ML INJ IV PRN (05:48)
[2019-02-16] MEDS: HYDROCODONE/APAP 7.5/325 MG TAB PO PRN ×2 (05:48→20:14)
[2019-02-16] MEDS: METOPROLOL TAR 25 MG TAB PO SCH ×2 (05:48→17:34)
[2019-02-16] MEDS: INSULIN -REGULAR HUMAN 50 UNIT/0.5 ML ML SQ SCH ×5 (05:49→23:42)
[2019-02-16 06:12] LABS: Absolute Neutrophil 9.2 K/uL (1.8-8.0); Basophils % 0.7 % (0-1.3); Eosinophils % 1.4 % (0-4.4); Hematocrit 37.1 % (39.6-49.0); Lymphocytes % 22.2 % (15.3-44.8); MPV 7.1 fL (7.6-11.3); Monocytes % 7.6 % (3.3-12.3); RBC Red Blood Cell Count 3.82 M/uL (4.33-5.43)
[2019-02-16 06:19] LABS: ALT/SGPT 18 U/L (12-78); AST/SGOT 16 U/L (15-37); Albumin 2.6 g/dL (3.4-5.0); Alkaline Phosphatase 68 U/L (45-117); BUN Blood Urea Nitrogen 31 mg/dL (7-18); Bicarbonate 29 mmol/L (21-32); Bilirubin Total 0.4 mg/dL (0.2-1.0); Glucose Level 98 mg/dL (74-106); Magnesium 2.3 mg/dL (1.8-2.4); Potassium 3.3 mmol/L (3.5-5.1); Protein, Total 6.2 g/dL (6.4-8.2); Sodium Level 144 mmol/L (136-145)
[2019-02-16] MEDS: ARFORMOTEROL TARTRATE 15 MCG/2 ML VIAL.NEB NEB SCH ×2 (07:29→20:00)
--- NOTE | 2019-02-16 08:36 | RAD REPORT ---
EXAM DESCRIPTION: ZACHMary Annt Single View02/16/2019 6:13 am CLINICAL HISTORY: Shortness of breath COMPARISON: February 15 FINDINGS: Endotracheal and nasogastric tubes remain in good position Minimal improvement in bilateral pulmonary opacities
[2019-02-16] MEDS: AMLODIPINE 5 MG TAB PO SCH (08:54)
[2019-02-16] MEDS: Levofloxacin 750mg IV 750 MG/150 ML BAG IV SCH (08:54)
[2019-02-16] MEDS: FAMOTIDINE 20 MG/2 ML VIAL IV SCH ×2 (08:55→20:13)
[2019-02-16] MEDS: THIAMINE 200 MG/2 ML INJ IVP SCH (08:55)
[2019-02-16] MEDS: NICOTINE 21 MG/PAT TD SCH (08:55)
[2019-02-16] MEDS: MOXIFLOXACIN HCL 0.5% 3ML OPTH OPTH SCH ×2 (08:56→20:14)
[2019-02-16] MEDS: guaiFENesin 100 MG/5 ML UCUP PO SCH ×2 (08:56→20:13)
[2019-02-16] MEDS ORDERED: POTASSIUM 25 MEQ EFFERV TAB PO ONE (09:00)
[2019-02-16] MEDS ORDERED: ASPIRIN 81 MG CHEWABLE TABLET PO SCH (09:00)
[2019-02-16] MEDS ORDERED: FUROSEMIDE 20 MG/ 2ML VIAL IV ONE (09:12)
--- NOTE | 2019-02-16 11:20 | ECHO ---
HEIGHT: 5 ft 4 in WEIGHT: 206 lb 6.4 oz DATE OF STUDY: 02/16/[address]: Mayur Martinez MD 2-DIMENSIONAL: YES M.MODE: YES DOPPLER: YES COLOR FLOW: YES TDS: NO PORTABLE: YES DEFINITY: NO BUBBLE STUDY: NO DIAGNOSIS: RESPIRATORY FAILURE CARDIAC HISTORY: CATHERIZATION: NO SURGERY: NO PROSTHETIC VALVE: NO PACEMAKER: NO MEASUREMENTS (cm) DIASTOLIC (NORMALS) SYSTOLIC (NORMALS) IVSd 1.1 (0.6-1.2) LA Diam 3.3 (1.9-4.0) LVEF 68% LVIDd 4.0 (3.5-5.7) LVIDs 2.5 (2.0-3.5) %FS 38% LVPWd 1.1 (0.6-1.2) Ao Diam 2.2 (2.0-3.7) 2 DIMENSIONAL ASSESSMENT: RIGHT ATRIUM: NORMAL LEFT ATRIUM: NORMAL RIGHT VENTRICLE: NORMAL LEFT VENTRICLE: NORMAL TRICUSPID VALVE: NORMAL MITRAL VALVE: NORMAL PULMONIC VALVE: NORMAL AORTIC VALVE: NORMAL PERICARDIAL EFFUSION: NONE AORTIC ROOT: NORMAL LEFT VENTRICULAR WALL MOTION: NORMAL DOPPLER/COLOR FLOW: NORMAL COMMENTS: NORMAL 2D ECHOCARDIOGRAM WITH DOPPLER. TECHNOLOGIST: Sylvia NASH
[2019-02-16] MEDS: HYDROMORPHONE HCL 1 MG/ML INJ IV PRN ×3 (11:56→22:01)
[2019-02-16] MEDS ORDERED: VITAL HP 1,000 ML BOT RTH SCH (12:00)
[2019-02-16] MEDS ORDERED: DIPHENHYDRAMINE 50 MG/ML VIAL IV ONE (13:20)
[2019-02-16] MEDS: ALBUTEROL 2.5 MG/3 ML NEB SOL NEB PRN (13:22)
--- NOTE | 2019-02-16 14:34 | P.PN ---
Subjective Date of Service: 02/16/19 Primary Care Provider: Dr. Michaels; Pulmonary-Dr. Martinez Chief Complaint: Respiratory failure Overnight Pt with ARF and was intubated. Pt currently remained intubated. Weaning off the propofol today. RN Denies any fever, chills or any other adverse event this AM. Sputum culture + for Ecoli. improved secretion. Review of Systems 10-point ROS is otherwise unremarkable Physical Examination - Vital Signs Temperature: 98.6 F Blood Pressure: 129/96 Pulse: 82 Respirations: 16 Pulse Ox (%): 94 - Physical Exam General: Mild distress, Other (Intubated) Respiratory: Normal air movement, Expiratory wheezes, Inspiratory wheezes Cardiovascular: Regular rate/rhythm, Normal S1 S2 Gastrointestinal: Normal bowel sounds, Soft and benign, Non-distended, No tenderness Musculoskeletal: No tenderness Integumentary: No rashes Neurological: Normal tone, Normal affect Lymphatics: No axilla or inguinal lymphadenopathy - Studies Medications List Reviewed: Yes Assessment And Plan - Current Problems (Diagnosis) (1) Respiratory failure Current Visit: Yes Status: Acute Plan: Acute on chronic Respiratory Failure most likely 2.2 to PNA vs tobacco abuse -Currently Intubated. Will wean as tolerated to BIPAP and then NC -Pulmonology consulted. Appreciate Reccs -Switched to IV Levaquin for Ecoli in the sputum -Blood culture cancelled previously. Collected again - thus far -maintain on Vent and wean as tolerated. -Labs and xray in AM Qualifiers: Chronicity: acute on chronic (2) COPD exacerbation Onset Date: 09/07/18 Current Visit: No Status: Acute Plan: COPD exacerbation 2.2 to PNA and smoking -Duonebs, Steroids and Currently intubated. (3) Pneumonia of both lower lobes Onset Date: 07/20/18 Current Visit: No Status: Acute Plan: PNA of BL LL. -On IV Levaquin for now -Sputum Culture+ for ECOLI Qualifiers: Pneumonia type: due to unspecified organism Qualified Code(s): J18.1 - Lobar pneumonia, unspecified organism (4) HTN (hypertension) Onset Date: 02/11/18 Current Visit: No Status: Chronic Plan: On Home medication Qualifiers: Hypertension type: essential hypertension (5) Tobacco abuse Onset Date: 02/11/18 Current Visit: No Status: Chronic Plan: Smoking cessation once Extubated - Plan Pending clinical Improvement. Will wean and extubate as tolerated. Switched to IV levaquin for + Ecoli. Discharge Plan: Other Plan to discharge in: Greater than 2 days - Code Status/Comfort Care Code Status Assessed: Yes Critical Care: Yes Time Spent Managing PTS Care (In Minutes): 35
[2019-02-16] MEDS: ENOXAPARIN 40 MG/0.4 ML SQ SCH (16:10)
[2019-02-16] MEDS: MIDAZOLAM HCL 2 MG/2 ML INJ IV PRN (22:29)
[2019-02-17] MEDS: HALOPERIDOL LACT 5 MG/ML INJ IV PRN ×2 (00:17→05:11)
[2019-02-17] MEDS: MIDAZOLAM HCL 2 MG/2 ML INJ IV PRN ×2 (00:51→03:13)
[2019-02-17] MEDS ORDERED: FUROSEMIDE 20 MG/ 2ML VIAL IV ONE ×2 (01:02→05:30)
[2019-02-17] MEDS: LORazepam 2 MG/ML VIAL IV PRN ×2 (01:32→04:08)
[2019-02-17] MEDS: SCOPOLAMINE HYDROBROMIDE PATCH TD SCH (01:48)
[2019-02-17] MEDS: IPRATROPIUM BROM 0.5MG/2.5ML NEB SCH ×4 (02:00→20:00)
[2019-02-17] MEDS: HYDROMORPHONE HCL 1 MG/ML INJ IV PRN ×2 (02:17→08:22)
[2019-02-17] MEDS: ACETAMINOPHEN 500 MG TAB PO PRN (04:10)
[2019-02-17] MEDS: INSULIN -REGULAR HUMAN 50 UNIT/0.5 ML ML SQ SCH ×2 (05:15→12:00)
[2019-02-17 05:40] LABS: BUN Blood Urea Nitrogen 25 mg/dL (7-18); Bicarbonate 30 mmol/L (21-32); Glucose Level 100 mg/dL (74-106); Magnesium 2.3 mg/dL (1.8-2.4); Potassium 3.4 mmol/L (3.5-5.1); Sodium Level 141 mmol/L (136-145)
[2019-02-17] MEDS: METOPROLOL TAR 25 MG TAB PO SCH ×2 (06:01→17:29)
[2019-02-17] MEDS ORDERED: POTASSIUM 25 MEQ EFFERV TAB PO ONE (06:03)
[2019-02-17] MEDS: ARFORMOTEROL TARTRATE 15 MCG/2 ML VIAL.NEB NEB SCH ×2 (07:57→20:00)
--- NOTE | 2019-02-17 08:10 | RAD REPORT ---
EXAM DESCRIPTION: RAD - Chest Single View - 02/17/2019 6:37 am CLINICAL HISTORY: Pneumonia and respiratory failure Chest pain. COMPARISON: Chest Single View dated 02/16/2019; Chest Single View dated 02/15/2019; Chest Single View d ated 02/14/2019; Chest Single View dated 02/13/2019 FINDINGS: Portable technique limits examination quality. Tip of the ET tube is above the juani. Enteric tube coils in the stomach. Bilateral pulmonary opacit ies are noted, mildly worsened since comparative study, probably indicating pulmonary edema or pneumo felipe. The heart is normal in size. No displaced fractures.
[2019-02-17] MEDS: FAMOTIDINE 20 MG/2 ML VIAL IV SCH ×2 (08:20→20:52)
[2019-02-17] MEDS: Levofloxacin 750mg IV 750 MG/150 ML BAG IV SCH (08:20)
[2019-02-17] MEDS: NICOTINE 21 MG/PAT TD SCH (08:20)
[2019-02-17] MEDS: AMLODIPINE 5 MG TAB PO SCH (08:21)
[2019-02-17] MEDS: guaiFENesin 100 MG/5 ML UCUP PO SCH ×2 (08:21→20:53)
[2019-02-17] MEDS: THIAMINE 200 MG/2 ML INJ IVP SCH (08:22)
[2019-02-17] MEDS: HYDROCODONE/APAP 7.5/325 MG TAB PO PRN ×2 (10:56→16:13)
--- NOTE | 2019-02-17 13:14 | RAD REPORT ---
EXAM DESCRIPTION: [place] Single View02/17/2019 1:05 pm CLINICAL HISTORY: Shortness of breath COMPARISON: February 17, 2019 FINDINGS: No significant change in the diffuse bilateral pulmonary opacities. The heart remains enl arged. Tubes have been removed IMPRESSION: No significant change in the bilateral pulmonary opacities probably representing pulmona ry edema
[2019-02-17] MEDS: ALBUTEROL 2.5 MG/3 ML NEB SOL NEB PRN (13:15)
[2019-02-17] MEDS: MOXIFLOXACIN HCL 0.5% 3ML OPTH OPTH SCH ×2 (15:13→20:52)
--- NOTE | 2019-02-17 15:34 | P.PN ---
Subjective Date of Service: 02/17/19 Primary Care Provider: Dr. Michaels; Pulmonary-Dr. Martinez Chief Complaint: Respiratory failure Overnight Pt with ARF and was intubated. Pt now extubated and on Non rebreather. He denies having any fever or chills. C/o of left arm pain and burning. Having increase mucus production. Review of Systems 10-point ROS is otherwise unremarkable Physical Examination - Vital Signs Temperature: 98.8 F Blood Pressure: 128/82 Pulse: 66 Respirations: 15 Pulse Ox (%): 96 - Physical Exam General: Alert, Mild distress, Other (On Non rebreather) Respiratory: Normal air movement, Crackles/rales, Rhonchi/gurgles Cardiovascular: Regular rate/rhythm, Normal S1 S2 Gastrointestinal: Normal bowel sounds, No tenderness Musculoskeletal: No tenderness Integumentary: No rashes Neurological: Normal speech, Normal tone, Normal affect Lymphatics: No axilla or inguinal lymphadenopathy - Studies Medications List Reviewed: Yes Assessment And Plan - Current Problems (Diagnosis) (1) Respiratory failure Current Visit: Yes Status: Acute Plan: Acute on chronic Respiratory Failure most likely 2.2 to PNA vs tobacco abuse -Now Extubated and on Non rebreather. Doing well overall. -Pulmonology consulted. Appreciate Reccs -On IV Levaquin for Ecoli in the sputum -Blood culture cancelled previously. Collected again - thus far -NTS with Respiratory and CPT for increase mucus production. -Repeat Xray in the AM -xray this AM concern for Edema - Lasix x 2. Scheduled Lasix today Qualifiers: Chronicity: acute on chronic (2) COPD exacerbation Onset Date: 09/07/18 Current Visit: No Status: Acute Plan: COPD exacerbation 2.2 to PNA and smoking -Duonebs, Steroids and Non rebreather -Wean as tolerated (3) Pneumonia of both lower lobes Onset Date: 07/20/18 Current Visit: No Status: Acute Plan: PNA of BL LL. -On IV Levaquin -Sputum Culture+ for ECOLI Qualifiers: Pneumonia type: due to unspecified organism Qualified Code(s): J18.1 - Lobar pneumonia, unspecified organism (4) HTN (hypertension) Onset Date: 02/11/18 Current Visit: No Status: Chronic Plan: On Home medication Qualifiers: Hypertension type: essential hypertension (5) Tobacco abuse Onset Date: 02/11/18 Current Visit: No Status: Chronic Plan: Smoking cessation once Extubated - Plan Pending clinical Improvement. Extubated now. CPT and NTS for increase mucus production. On IV levaquin for + Ecoli. Discharge Plan: Home Plan to discharge in: Greater than 2 days - Code Status/Comfort Care Code Status Assessed: Yes Critical Care: Yes Time Spent Managing PTS Care (In Minutes): 55
[2019-02-17] MEDS: ENOXAPARIN 40 MG/0.4 ML SQ SCH (16:13)
[2019-02-18] MEDS: IPRATROPIUM BROM 0.5MG/2.5ML NEB SCH ×4 (02:00→19:40)
[2019-02-18 05:38] LABS: Absolute Lymphocytes (CBC) 2.5 K/uL (0.7-4.9); Absolute Monocytes 1.3 K/uL (0.1-1.3); Absolute Neutrophil 14.6 K/uL (1.8-8.0); Basophils % 0.3 % (0-1.3); Eosinophils % 2.2 % (0-4.4); Lymphocytes % 13.1 % (15.3-44.8); MPV 7.2 fL (7.6-11.3); RBC Red Blood Cell Count 4.34 M/uL (4.33-5.43)
[2019-02-18] MEDS: METOPROLOL TAR 25 MG TAB PO SCH ×2 (05:53→17:31)
[2019-02-18 05:54] LABS: BUN Blood Urea Nitrogen 21 mg/dL (7-18); Bicarbonate 29 mmol/L (21-32); Glucose Level 89 mg/dL (74-106); Magnesium 2.4 mg/dL (1.8-2.4); Potassium 4.2 mmol/L (3.5-5.1); Sodium Level 140 mmol/L (136-145)
[2019-02-18 06:43] LABS: Platelet Estimate ADEQ
[2019-02-18 06:44] LABS: Blood Morphology Comment NOT SEEN (NOT SEEN)
--- NOTE | 2019-02-18 08:02 | RAD REPORT ---
EXAM DESCRIPTION: RAD - Chest Single View - 02/18/2019 6:01 am CLINICAL HISTORY: Pneumonia, respiratory failure COMPARISON: February 17 TECHNIQUE: AP portable chest image was obtained [id number] hours . FINDINGS: Bilateral lung base opacification has partially cleared. No new or progressive lung parenc hymal process. Heart size is upper normal, stable, with no new or progressive vascular engorgement. N o measurable pleural effusion and no pneumothorax. No acute bony abnormality seen. No acute aortic fi ndings suspected. IMPRESSION: Partial clearing of bilateral lung base infiltrates. No new or progressive finding.
[2019-02-18] MEDS: ARFORMOTEROL TARTRATE 15 MCG/2 ML VIAL.NEB NEB SCH ×2 (08:26→19:40)
[2019-02-18] MEDS: NICOTINE 21 MG/PAT TD SCH (08:28)
[2019-02-18] MEDS: guaiFENesin 100 MG/5 ML UCUP PO SCH ×2 (08:29→20:53)
[2019-02-18] MEDS: AMLODIPINE 5 MG TAB PO SCH (08:29)
[2019-02-18] MEDS: FAMOTIDINE 20 MG/2 ML VIAL IV SCH (08:30)
[2019-02-18] MEDS: Levofloxacin 750mg IV 750 MG/150 ML BAG IV SCH (08:30)
[2019-02-18] MEDS ORDERED: FUROSEMIDE 20 MG/ 2ML VIAL IV SCH (09:00)
[2019-02-18] MEDS: MOXIFLOXACIN HCL 0.5% 3ML OPTH OPTH SCH ×2 (09:00→20:55)
[2019-02-18] MEDS: THIAMINE 200 MG/2 ML INJ IVP SCH (09:34)
--- NOTE | 2019-02-18 12:01 | P.PN ---
Subjective Date of Service: 02/18/19 Primary Care Provider: Dr. Michaels; Pulmonary-Dr. Martinez Chief Complaint: COPD exacerbation Patient is doing much better today he was extubated yesterday is alert responsive oriented cooperative no new complaints Review of Systems General: Weakness Respiratory: Cough, Shortness of Breath Physical Examination - Vital Signs Temperature: 98.4 F Blood Pressure: 122/104 Pulse: 90 Respirations: 25 Pulse Ox (%): 96 - Physical Exam General: Alert, Oriented x3 Respiratory: Expiratory wheezes Cardiovascular: No edema, Regular rate/rhythm, Normal S1 S2 - Studies Medications List Reviewed: Yes Assessment & Plan - Problems (Diagnosis) (1) COPD exacerbation Onset Date: 09/07/18 Current Visit: No Status: Acute Plan: Patient is 48 years of age admitted with COPD exacerbation significant clearing of his chest x-ray minimal right lower lobe infiltrate possible pneumonia change to p.o. levofloxacin resume baseline 10 mg of prednisone Dc Lasix normal 2D echocardiogram E. coli in the sputum is probably contaminant transfer to the floor Consul the about smoking white count is still elevated blood pressure is also elevated Dc Campuzano catheter possible discharge tomorrow Physician Review Additional Text: I
--- NOTE | 2019-02-18 12:54 | P.PN ---
Subjective Date of Service: 02/18/19 Primary Care Provider: Dr. Michaels; Pulmonary-Dr. Martinez Chief Complaint: COPD exacerbation Pt weaned off to NC now. Saturating well. He denies having any fever or chills. Review of Systems 10-point ROS is otherwise unremarkable Physical Examination - Vital Signs Temperature: 98.4 F Blood Pressure: 122/104 Pulse: 90 Respirations: 25 Pulse Ox (%): 96 - Physical Exam General: Alert, In no apparent distress HEENT: Atraumatic, PERRLA, EOMI Neck: Supple, JVD not distended Respiratory: Normal air movement, Expiratory wheezes, Inspiratory wheezes Cardiovascular: Regular rate/rhythm, Normal S1 S2 Gastrointestinal: Normal bowel sounds, No tenderness Musculoskeletal: No tenderness Integumentary: No rashes Neurological: Normal speech, Normal tone, Normal affect Lymphatics: No axilla or inguinal lymphadenopathy - Studies Medications List Reviewed: Yes Assessment And Plan - Current Problems (Diagnosis) (1) Respiratory failure Current Visit: Yes Status: Resolved Plan: Acute on chronic Respiratory Failure most likely 2.2 to PNA vs tobacco abuse -On NC now sat well. -Pulmonology consulted. Appreciate Reccs -On IV Levaquin for Ecoli in the sputum -Blood culture - thus far -NTS with Respiratory and CPT for increase mucus production. Qualifiers: Chronicity: acute on chronic (2) COPD exacerbation Onset Date: 09/07/18 Current Visit: No Status: Acute Plan: COPD exacerbation 2.2 to PNA and smoking -Duonebs, Steroids and NC (3) Pneumonia of both lower lobes Onset Date: 07/20/18 Current Visit: No Status: Acute Plan: PNA of BL LL. -On IV Levaquin -Sputum Culture+ for ECOLI Qualifiers: Pneumonia type: due to unspecified organism Qualified Code(s): J18.1 - Lobar pneumonia, unspecified organism (4) HTN (hypertension) Onset Date: 02/11/18 Current Visit: No Status: Chronic Plan: On Home medication Qualifiers: Hypertension type: essential hypertension (5) Tobacco abuse Onset Date: 02/11/18 Current Visit: No Status: Chronic Plan: Smoking cessation once Extubated - Plan Pending clinical Improvement. CPT and NTS for increase mucus production. On IV levaquin for + Ecoli. Will Switch to PO in next 24 to 48 hrs. Will transfer to the Floor in next 24hrs as well. Discharge Plan: Home Plan to discharge in: Greater than 2 days - Code Status/Comfort Care Code Status Assessed: Yes Critical Care: Yes
[2019-02-18] MEDS: ENOXAPARIN 40 MG/0.4 ML SQ SCH (17:32)
[2019-02-18] MEDS: THIAMINE HCL 100 MG TABLET PO SCH (20:53)
[2019-02-18] MEDS: ACETAMINOPHEN 500 MG TAB PO PRN (20:54)
[2019-02-18] MEDS: predniSONE 10 MG TAB PO SCH (20:54)
[2019-02-18] MEDS ORDERED: AMLODIPINE 10 MG TAB PO SCH (21:00)
[2019-02-18] MEDS ORDERED: THIAMINE MONONITRATE PO SCH (21:00)
[2019-02-18] MEDS ORDERED: LORAZEPAM 1 MG TABLET PO ONE (23:24)
[2019-02-19] MEDS: IPRATROPIUM BROM 0.5MG/2.5ML NEB SCH ×4 (00:10→20:25)
[2019-02-19] MEDS ORDERED: LORAZEPAM 1 MG TABLET PO ONE ×2 (01:25→21:12)
[2019-02-19] MEDS: METOPROLOL TAR 25 MG TAB PO SCH (05:59)
[2019-02-19 06:30] LABS: BUN Blood Urea Nitrogen 18 mg/dL (7-18); Bicarbonate 31 mmol/L (21-32); Glucose Level 116 mg/dL (74-106); Magnesium 2.2 mg/dL (1.8-2.4); Sodium Level 137 mmol/L (136-145)
[2019-02-19] MEDS: HYDROMORPHONE HCL 1 MG/ML INJ IV PRN ×4 (06:30→21:54)
[2019-02-19] MEDS: guaiFENesin 100 MG/5 ML UCUP PO SCH ×2 (07:46→20:47)
[2019-02-19] MEDS: levoFLOXacin 500 MG TAB PO SCH (07:47)
[2019-02-19] MEDS: predniSONE 10 MG TAB PO SCH ×2 (07:47→20:47)
[2019-02-19] MEDS: FOLIC ACID 1 MG TABLET PO SCH (07:47)
[2019-02-19] MEDS: MOXIFLOXACIN HCL 0.5% 3ML OPTH OPTH SCH ×2 (07:47→20:48)
[2019-02-19] MEDS: THIAMINE HCL 100 MG TABLET PO SCH ×2 (07:47→20:47)
[2019-02-19] MEDS: NICOTINE 21 MG/PAT TD SCH ×2 (07:47→15:44)
[2019-02-19] MEDS: ARFORMOTEROL TARTRATE 15 MCG/2 ML VIAL.NEB NEB SCH ×2 (08:00→20:25)
[2019-02-19] MEDS ORDERED: THIAMINE HCL 100 MG TABLET PO SCH (09:00)
--- NOTE | 2019-02-19 11:00 | P.PN ---
Subjective Date of Service: 02/19/19 Primary Care Provider: Dr. Michaels; Pulmonary-Dr. Martinez Chief Complaint: COPD exacerbation Patient is doing much better he still has some left-sided chest discomfort ambulating Review of Systems General: Weakness Respiratory: Cough, Shortness of Breath Cardiovascular: Chest Pain Physical Examination - Vital Signs Temperature: 98.2 F Blood Pressure: 112/74 Pulse: 100 Respirations: 25 Pulse Ox (%): 89 - Physical Exam General: Oriented x3, Mild distress Neck: Supple Respiratory: Expiratory wheezes Cardiovascular: No edema, Normal pulses - Studies Medications List Reviewed: Yes Assessment & Plan - Problems (Diagnosis) (1) COPD exacerbation Onset Date: 09/07/18 Current Visit: No Status: Acute Plan: Patient admitted with COPD exacerbation he is doing much better transfer to the floor continue with present medications apparently is only at taking Spiriva up he will need a combination of a steroid inhaler with a long-acting beta agonist either Advair or Symbicort or Breo continue with prednisone vital signs satisfactory I have stopped his metoprolol reduce dose of amlodipine probable discharge tomorrow Physician Review Additional Text: I
--- NOTE | 2019-02-19 11:07 | RAD REPORT ---
EXAM DESCRIPTION: [facility] Single View02/19/2019 6:26 am CLINICAL HISTORY: Chest pain COMPARISON: February 18 FINDINGS: Equivocal mild worsening in the bibasilar opacities. Upper lobe is clear The heart is mildly enlarged IMPRESSION: Equivocal mild worsening in the bibasilar opacities
[2019-02-19 12:24] LABS: Absolute Lymphocytes (CBC) 1.7 K/uL (0.7-4.9); Absolute Monocytes 1.1 K/uL (0.1-1.3); Absolute Neutrophil 19.8 K/uL (1.8-8.0); Eosinophils % 0.2 % (0-4.4); Hematocrit 41.7 % (39.6-49.0); Lymphocytes % 7.5 % (15.3-44.8); MPV 6.9 fL (7.6-11.3); RBC Red Blood Cell Count 4.34 M/uL (4.33-5.43)
[2019-02-19 13:02] LABS: ALT/SGPT 57 U/L (12-78); AST/SGOT 27 U/L (15-37); Albumin 3.1 g/dL (3.4-5.0); Alkaline Phosphatase 162 U/L (45-117); BUN Blood Urea Nitrogen 19 mg/dL (7-18); Bicarbonate 32 mmol/L (21-32); Bilirubin Total 0.7 mg/dL (0.2-1.0); Glucose Level 117 mg/dL (74-106); Potassium 4.7 mmol/L (3.5-5.1); Sodium Level 136 mmol/L (136-145)
--- NOTE | 2019-02-19 13:30 | P.PN ---
Subjective Date of Service: 02/19/19 Primary Care Provider: Dr. Michaels; Pulmonary-Dr. Martinez Chief Complaint: COPD exacerbation Subjective: No C/O voiced, Tolerating diet, Improving, Working w/ PT, Doing well , Other (Denies Fever, Chills and SOB at this time. Did not have a good sleep last night.) Review of Systems 10-point ROS is otherwise unremarkable Physical Examination - Vital Signs Temperature: 98.2 F Blood Pressure: 112/74 Pulse: 100 Respirations: 25 Pulse Ox (%): 89 - Physical Exam General: Alert, In no apparent distress HEENT: Atraumatic, PERRLA, EOMI Neck: Supple, JVD not distended Respiratory: Normal air movement, Crackles/rales, Rhonchi/gurgles Cardiovascular: Regular rate/rhythm, Normal S1 S2 Gastrointestinal: Normal bowel sounds, No tenderness Musculoskeletal: No tenderness Integumentary: No rashes Neurological: Normal speech, Normal tone, Normal affect Lymphatics: No axilla or inguinal lymphadenopathy - Studies Medications List Reviewed: Yes Assessment And Plan - Current Problems (Diagnosis) (1) Respiratory failure Current Visit: Yes Status: Resolved Plan: Acute on chronic Respiratory Failure most likely 2.2 to PNA vs tobacco abuse -Pulmonology consulted. Appreciate Reccs -On IV Levaquin for Ecoli in the sputum -Blood culture - thus far -NTS with Respiratory and CPT for increase mucus production. -Improving today. -Transfer to the Floor Qualifiers: Chronicity: acute on chronic (2) COPD exacerbation Onset Date: 09/07/18 Current Visit: No Status: Acute Plan: COPD exacerbation 2.2 to PNA and smoking -Duonebs, Steroids and NC (3) Pneumonia of both lower lobes Onset Date: 07/20/18 Current Visit: No Status: Acute Plan: PNA of BL LL. -On IV Levaquin -Sputum Culture+ for ECOLI Qualifiers: Pneumonia type: due to unspecified organism Qualified Code(s): J18.1 - Lobar pneumonia, unspecified organism (4) HTN (hypertension) Onset Date: 02/11/18 Current Visit: No Status: Chronic Plan: On Home medication Qualifiers: Hypertension type: essential hypertension (5) Tobacco abuse Onset Date: 02/11/18 Current Visit: No Status: Chronic Plan: Smoking cessation once Extubated - Plan Pending clinical Improvement. CPT and NTS for increase mucus production. On IV levaquin for + Ecoli. Will Switch to PO in next 24 hrs. Will transfer to the Floor today Discharge Plan: Home Plan to discharge in: Greater than 2 days - Code Status/Comfort Care Code Status Assessed: Yes Critical Care: Yes
[2019-02-19] MEDS: ENOXAPARIN 40 MG/0.4 ML SQ SCH (17:50)
[2019-02-19] MEDS: AMLODIPINE 5 MG TAB PO SCH (20:48)
[2019-02-20] MEDS: IPRATROPIUM BROM 0.5MG/2.5ML NEB SCH ×4 (01:25→20:00)
[2019-02-20 05:59] LABS: Absolute Lymphocytes (CBC) 2.4 K/uL (0.7-4.9); Absolute Monocytes 1.7 K/uL (0.1-1.3); Absolute Neutrophil 13.8 K/uL (1.8-8.0); Basophils % 0.8 % (0-1.3); Eosinophils % 0.7 % (0-4.4); Hematocrit 36.9 % (39.6-49.0); Lymphocytes % 13.3 % (15.3-44.8); MPV 6.9 fL (7.6-11.3); Monocytes % 9.3 % (3.3-12.3); RBC Red Blood Cell Count 3.82 M/uL (4.33-5.43)
[2019-02-20 06:17] LABS: ALT/SGPT 36 U/L (12-78); AST/SGOT 16 U/L (15-37); Albumin 2.7 g/dL (3.4-5.0); Alkaline Phosphatase 122 U/L (45-117); BUN Blood Urea Nitrogen 17 mg/dL (7-18); Bicarbonate 32 mmol/L (21-32); Bilirubin Total 0.5 mg/dL (0.2-1.0); Glucose Level 128 mg/dL (74-106); Potassium 4.5 mmol/L (3.5-5.1); Protein, Total 6.7 g/dL (6.4-8.2); Sodium Level 139 mmol/L (136-145)
[2019-02-20] MEDS: ARFORMOTEROL TARTRATE 15 MCG/2 ML VIAL.NEB NEB SCH ×2 (07:46→20:00)
[2019-02-20] MEDS: predniSONE 10 MG TAB PO SCH ×2 (08:34→21:10)
[2019-02-20] MEDS: FOLIC ACID 1 MG TABLET PO SCH (08:34)
[2019-02-20] MEDS: THIAMINE HCL 100 MG TABLET PO SCH ×2 (08:34→21:10)
[2019-02-20] MEDS: levoFLOXacin 500 MG TAB PO SCH (08:35)
[2019-02-20] MEDS: guaiFENesin 100 MG/5 ML UCUP PO SCH ×2 (08:35→21:18)
[2019-02-20] MEDS: MOXIFLOXACIN HCL 0.5% 3ML OPTH OPTH SCH ×2 (08:35→21:10)
[2019-02-20] MEDS: NICOTINE 21 MG/PAT TD SCH (08:35)
[2019-02-20] MEDS: SCOPOLAMINE HYDROBROMIDE PATCH TD SCH (10:11)
--- NOTE | 2019-02-20 11:45 | P.PN ---
Subjective Date of Service: 02/20/19 Primary Care Provider: Dr. Michaels; Pulmonary-Dr. Martinez Chief Complaint: COPD exacerbation Pt weaned off to NC now. Saturating well. He denies having any fever or chills. Denies having any shortness of breath chest pain or any other associated symptoms Review of Systems 10-point ROS is otherwise unremarkable Physical Examination - Vital Signs Temperature: 98.1 F Blood Pressure: 125/76 Pulse: 86 Respirations: 20 Pulse Ox (%): 91 - Physical Exam General: Alert, In no apparent distress HEENT: Atraumatic, PERRLA, EOMI Neck: Supple, JVD not distended Respiratory: Normal air movement, Expiratory wheezes, Inspiratory wheezes Cardiovascular: Regular rate/rhythm, Normal S1 S2 Gastrointestinal: Normal bowel sounds, No tenderness Musculoskeletal: No tenderness Integumentary: No rashes Neurological: Normal speech, Normal tone, Normal affect Lymphatics: No axilla or inguinal lymphadenopathy - Studies Medications List Reviewed: Yes Assessment And Plan - Current Problems (Diagnosis) (1) Respiratory failure Current Visit: Yes Status: Resolved Plan: Acute on chronic Respiratory Failure most likely 2.2 to PNA vs tobacco abuse -Pulmonology consulted. Appreciate Reccs -On IV Levaquin for Ecoli in the sputum -Blood culture - thus far -NTS with Respiratory and CPT for increase mucus production. -Improving today. Still requiring oxygenation at this time. Will try to wean off the oxygen arranged for oxygen to go home with. Qualifiers: Chronicity: acute on chronic (2) COPD exacerbation Onset Date: 09/07/18 Current Visit: No Status: Acute Plan: COPD exacerbation 2.2 to PNA and smoking -Duonebs, Steroids and NC (3) Pneumonia of both lower lobes Onset Date: 07/20/18 Current Visit: No Status: Acute Plan: PNA of BL LL. -On IV Levaquin -Sputum Culture+ for ECOLI Qualifiers: Pneumonia type: due to unspecified organism Qualified Code(s): J18.1 - Lobar pneumonia, unspecified organism (4) HTN (hypertension) Onset Date: 02/11/18 Current Visit: No Status: Chronic Plan: On Home medication Qualifiers: Hypertension type: essential hypertension (5) Tobacco abuse Onset Date: 02/11/18 Current Visit: No Status: Chronic Plan: Smoking cessation once Extubated - Plan Pending clinical Improvement. CPT and NTS for increase mucus production. On IV levaquin for + Ecoli. will attempt to wean off of oxygen at this time. If unable to wean off the oxygen will have case management arranged for home oxygenation at this time.
[2019-02-20] MEDS: ENOXAPARIN 40 MG/0.4 ML SQ SCH (16:35)
[2019-02-20] MEDS: AMLODIPINE 5 MG TAB PO SCH (21:10)
[2019-02-20] MEDS ORDERED: LORAZEPAM 1 MG TABLET PO ONE (21:23)
[2019-02-21] MEDS: IPRATROPIUM BROM 0.5MG/2.5ML NEB SCH ×2 (02:26→09:37)
[2019-02-21 06:14] LABS: Absolute Lymphocytes (CBC) 2.6 K/uL (0.7-4.9); Absolute Monocytes 1.1 K/uL (0.1-1.3); Absolute Neutrophil 12.6 K/uL (1.8-8.0); Basophils % 0.6 % (0-1.3); Eosinophils % 0.2 % (0-4.4); Hematocrit 38.9 % (39.6-49.0); Lymphocytes % 15.8 % (15.3-44.8); MPV 7.1 fL (7.6-11.3); Monocytes % 6.8 % (3.3-12.3); RBC Red Blood Cell Count 4.06 M/uL (4.33-5.43)
[2019-02-21 06:32] LABS: ALT/SGPT 36 U/L (12-78); AST/SGOT 14 U/L (15-37); Albumin 2.8 g/dL (3.4-5.0); Alkaline Phosphatase 124 U/L (45-117); BUN Blood Urea Nitrogen 9 mg/dL (7-18); Bicarbonate 31 mmol/L (21-32); Bilirubin Total 0.3 mg/dL (0.2-1.0); Glucose Level 147 mg/dL (74-106); Potassium 3.6 mmol/L (3.5-5.1); Protein, Total 7.3 g/dL (6.4-8.2); Sodium Level 141 mmol/L (136-145)
[2019-02-21] MEDS: guaiFENesin 100 MG/5 ML UCUP PO SCH (08:42)
[2019-02-21] MEDS: FOLIC ACID 1 MG TABLET PO SCH (08:42)
[2019-02-21] MEDS: NICOTINE 21 MG/PAT TD SCH (08:42)
[2019-02-21] MEDS: levoFLOXacin 500 MG TAB PO SCH (08:42)
[2019-02-21] MEDS: predniSONE 10 MG TAB PO SCH (08:42)
[2019-02-21] MEDS: THIAMINE HCL 100 MG TABLET PO SCH (08:44)
[2019-02-21] MEDS: MOXIFLOXACIN HCL 0.5% 3ML OPTH OPTH SCH (08:45)
[2019-02-21] MEDS ORDERED: POTASSIUM CL SA 10 MEQ TAB PO ONE (09:00)
[2019-02-21] MEDS: ARFORMOTEROL TARTRATE 15 MCG/2 ML VIAL.NEB NEB SCH (09:37)
[2019-02-21 10:13] VITALS: O2SAT 96
--- NOTE | 2019-02-21 12:19 | EKG ---
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
[2019-02-21 13:46] VITALS: BP 140/78; TEMP 98.2
--- NOTE | 2019-02-21 14:31 | P.DS ---
Admission Date: 02/12/19 Discharge Date: 02/21/19 Primary Care Provider: Dr. Michaels; Pulmonary-Dr. Martinez Disposition: ROUTINE DISCHARGE Discharge Condition: GOOD Reason for Admission: COPD exacerbation Consultations: Pulmonary-Dr. Martinez Procedures: ECHO: EF 68% LEFT VENTRICULAR WALL MOTION: NORMAL DOPPLER/COLOR FLOW: NORMAL COMMENTS: NORMAL 2D ECHOCARDIOGRAM WITH DOPPLER CT scan: FINDINGS: No pulmonary emboli are identified. The aorta as imaged shows no acute or suspicious finding. No pericardial thickening or effusion. Numerous scattered alveolar opacities are present in each upper lobe. Interstitial and alveolar opacification present in each posterior lung base. No pleural effusion or pleural thickening. No mediastinal or hilar suspicious masses. No chest wall masses or abnormal axillary lymphadenopathy. IMPRESSION: No pulmonary emboli identified. Patchy pneumonia changes scattered in the bilateral upper lobes. Bilateral posterior lung base opacification is present likely a mix of atelectasis and pneumonia. Medical Problem List: Shortness of breath secondary to COPD exacerbation complicated with bilateral pneumonia, failed outpatient therapy and acute on chronic respiratory failure, sputum culture positive for E coli Patient on chronic steroids Tobacco abuse Alcohol abuse Obesity, BMI 36 Brief History of Present Illness: 48-year-old male presented to the emergency room with shortness of breath. The patient was actually seen last night for cough, shortness of breath over the last several days. Patient was evaluated and treated in the emergency room. He was found to have bilateral pneumonia. Patient also with history of COPD on chronic steroids, tobacco abuse and hypertension. The patient was to be admitted but the patient preferred to go home. He apparently went to work this morning but continued to have increasing shortness of breath. He came to the ER for further evaluation. Patient denies any fever. Patient has been using his inhalers. In the ER patient evaluated. Room-air saturations were 84% on room air. Patient was tachycardic and tachypneic. On lab white count 23. Percent neutrophils 53. 3 bands noted. BMP [place] reviewed. Chest x-rays shows possible bilateral pneumonia versus atelectasis. Patient was given breathing treatments the emergency room. He was admitted for treatment. In the ER, the patient was having labored breathing when talking. His oxygen sats would decrease at times. Patient does not appear septic. Patient stable at this time. Patient admits smoking 1 pack per day. He is trying to quit entirely. The patient no longer drinks alcohol. Hospital Course: Patient presented with shortness of breath. Patient recently seen in the emergency room for pneumonia. Patient discharge with antibiotics. The patient returned with worsening shortness of breath. Patient required intubation during his stay. He was eventually weaned off. Patient found to have acute on chronic respiratory failure secondary to COPD exacerbation and bilateral pneumonia. During the course of his stay his condition improved. At discharge patient did not require any oxygen. Patient has completed course of antibiotic therapy. Patient seen evaluated by pulmonology. Compliance with his medications addressed in detail. At discharge patient well continue with Tessalon Perles 100 mg 1 pill 3 times a day as needed for cough. Patient may use Mucinex over the counter twice daily as needed for congestion. For his COPD patient has been on chronic steroid use. At discharge he will continue with prednisone 10 mg 1 pill twice daily for 5 days then 1 pill daily. Pulmonology is to follow up and slowly wean him off prednisone over time. New medication includes Brovana 1 unit dose twice daily and albuterol 1 unit dose 3 times a day as needed for shortness of breath. Patient may continue with Spiriva daily. Further adjustment in medication can be done by pulmonology as an outpatient. Patient to follow up with pulmonology within 1 week. Recommend to recheck chest x-ray in 1-2 weeks to monitor resolution. Prior to discharge patient to be evaluated for home oxygen. The patient did not qualify for home oxygen. Patient to continue with medications as above. Patient with tobacco and alcohol abuse. Patient plans to quit both. At discharge patient will continue with nicotine patch daily. Recommend to continue alcohol and tobacco cessation. Risk of continued use of alcohol and tobacco address in detail with the patient. Patient understands the risks. This can be further monitored and addressed by his PCP. At discharge patient will continue with thiamine 100 mg 1 pill twice daily and folic acid 1 mg daily. Patient with GERD. Patient will continue with Nexium 40 mg daily. Recommend to continue GERD diet. Patient previously with hypertension. Blood pressure remained stable off medication. He is to monitor his blood pressures closely. If his blood pressures remain above 140/90 consistently the patient may require medication. This can be further addressed by his PCP. Since the patient is on chronic steroids recommendation is to monitor for hyperglycemia/diabetes, osteoporosis and GERD. This can be further addressed by his PCP. Vital Signs/Physical Exam: Temp Pulse Resp BP Pulse Ox 98.2 F 89 18 140/78 96 02/21/19 12:00 02/21/19 12:00 02/21/19 12:00 02/21/19 12:00 02/21/19 12:00 General: Alert, In no apparent distress, Oriented x3, Cooperative HEENT: Atraumatic Neck: Supple Respiratory: Clear to auscultation bilaterally, Normal air movement Cardiovascular: Normal pulses, Regular rate/rhythm Gastrointestinal: Normal bowel sounds, Soft and benign, Non-distended Neurological: Normal speech, Normal strength at 5/5 x4 extr, Normal tone Laboratory Data at Discharge: WBC 16.5 K/uL (4.3-10.9) H 02/21/19 05:36 Hgb 13.5 g/dL (13.6-17.9) L 02/21/19 05:36 Hct 38.9 % (39.6-49.0) L 02/21/19 05:36 Plt Count 389 K/uL (152-406) 02/21/19 05:36 PT 10.6 SECONDS (9.5-12.5) 02/12/19 10:46 INR 0.89 02/12/19 10:46 Sodium 141 mmol/L (136-145) 02/21/19 05:36 Potassium 3.6 mmol/L (3.5-5.1) 02/21/19 05:36 BUN 9 mg/dL (7-18) 02/21/19 05:36 Creatinine 0.59 mg/dL (0.55-1.3) 02/21/19 05:36 Glucose 147 mg/dL (74-106) H 02/21/19 05:36 Magnesium 2.2 mg/dL (1.8-2.4) 02/19/19 05:08 Total Bilirubin 0.3 mg/dL (0.2-1.0) 02/21/19 05:36 AST 14 U/L (15-37) L 02/21/19 05:36 ALT 36 U/L (12-78) 02/21/19 05:36 Alkaline Phosphatase 124 U/L (45-117) H 02/21/19 05:36 Troponin I < 0.02 ng/mL (0.0-0.045) 02/13/19 17:26 Home Medications: Thiamine Mononitrate [Vitamin B-1] 1 tab PO BID 07/19/18 Tiotropium [place] [Spiriva] 18 mcg IH DAILY #30 cap.w.dev 10/20/18 Folic Acid 1 mg PO DAILY #30 tablet 11/15/18 LORazepam [Lorazepam] 1 tab PO BEDTIME PRN 02/12/19 Esomeprazole Mag Trihydrate [Nexium] 1 tab PO DAILY 02/13/19 Albuterol Neb [Proventil 0.083% Neb Soln] 3 ml NEB TID PRN #90 amp 02/21/19 Amlodipine [Norvasc*] 5 mg PO BEDTIME #30 tab 02/21/19 Arformoterol Tartrate [Brovana] 15 mcg NEB BIDRESP #60 vial.neb 02/21/19 Benzonatate [Tessalon Perle*] 100 mg PO TID PRN #30 cap 02/21/19 Ipratropium Neb [Atrovent*] 2.5 ml NEB TID PRN #90 amp 02/21/19 Nicotine [Nicoderm*] 21 mg TD DAILY #30 patch.td24 02/21/19 predniSONE [Deltasone*] 10 mg PO BID #40 tab 02/21/19 New Medications: Albuterol Neb [Proventil 0.083% Neb Soln] 3 ml NEB TID PRN #90 amp PRN Reason: Shortness Of Breath Amlodipine [Norvasc*] 5 mg PO BEDTIME #30 tab Arformoterol Tartrate [Brovana] 15 mcg NEB BIDRESP #60 vial.neb Benzonatate [Tessalon Perle*] 100 mg PO TID PRN #30 cap PRN Reason: Cough Ipratropium Neb [Atrovent*] 2.5 ml NEB TID PRN #90 amp PRN Reason: Shortness Of Breath Nicotine [Nicoderm*] 21 mg TD DAILY #30 patch.td24 predniSONE [Deltasone*] 10 mg PO BID #40 tab Patient Discharge Instructions: 1. Patient will follow up with his PCP in 1 week to follow up this hospitalization. 2. Patient presented with shortness of breath. Patient recently seen in the emergency room for pneumonia. Patient discharge with antibiotics. The patient returned with worsening shortness of breath. Patient required intubation during his stay. He was eventually weaned off. Patient found to have acute on chronic respiratory failure secondary to COPD exacerbation and bilateral pneumonia. During the course of his stay his condition improved. At discharge patient did not require any oxygen. Patient has completed course of antibiotic therapy. Patient seen evaluated by pulmonology. Compliance with his medications addressed in detail. At discharge patient well continue with Tessalon Perles 100 mg 1 pill 3 times a day as needed for cough. Patient may use Mucinex over the counter twice daily as needed for congestion. For his COPD patient has been on chronic steroid use. At discharge he will continue with prednisone 10 mg 1 pill twice daily for 5 days then 1 pill daily. Pulmonology is to follow up and slowly wean him off prednisone over time. New medication includes Brovana 1 unit dose twice daily and albuterol 1 unit dose 3 times a day as needed for shortness of breath. Patient may continue with Spiriva daily. Further adjustment in medication can be done by pulmonology as an outpatient. Patient to follow up with pulmonology within 1 week. Recommend to recheck chest x-ray in 1-2 weeks to monitor resolution. Prior to discharge patient to be evaluated for home oxygen. The patient did not qualify for home oxygen. Patient to continue with medications as above. 4. Patient with tobacco and alcohol abuse. Patient plans to quit both. At discharge patient will continue with nicotine patch daily. Recommend to continue alcohol and tobacco cessation. Risk of continued use of alcohol and tobacco address in detail with the patient. Patient understands the risks. This can be further monitored and addressed by his PCP. At discharge patient will continue with thiamine 100 mg 1 pill twice daily and folic acid 1 mg daily. 5. Patient with GERD. Patient will continue with Nexium 40 mg daily. Recommend to continue GERD diet. 6. Patient previously with hypertension. Blood pressure remained stable off medication. He is to monitor his blood pressures closely. If his blood pressures remain above 140/90 consistently the patient may require medication. This can be further addressed by his PCP. 7. Since the patient is on chronic steroids recommendation is to monitor for hyperglycemia/diabetes, osteoporosis and GERD. This can be further addressed by his PCP. Diet: AHA Activity: Fall precautions Followup: Mayur Martinez MD [ACTIVE - CAN ADMIT] - 1-2 Weeks (Follow up in office in 1 -2 weeks. Call to schedule an appointment.) Time spent managing pt's care (in minutes): 55
== END 2019-02-21 13:54 | disposition home or self-care (01) | DRG 208 ==
LOC: ER 10:12 → ERHOLD 11:57 → 2ND 14:41 → 3RD-ICU 02-13 14:08 → 2ND 02-19 11:00
PROVIDERS: ADMIT Family Medicine; ATTEND Family Medicine
PROC: 5A1945Z Respiratory Ventilation, 24-96 Consecutive Hours (ICD-10-PCS; principal; 2019-02-13)
PROC: 0BH17EZ Insertion of Endotracheal Airway into Trachea, Via Natural or Artificial Opening (ICD-10-PCS; 2019-02-13)
DX: J44.1 Chronic obstructive pulmonary disease with (acute) exacerbation (principal); J15.5 Pneumonia due to Escherichia coli; J96.20 Acute and chronic respiratory failure, unspecified whether with hypoxia or hypercapnia; J44.0 Chronic obstructive pulmonary disease with (acute) lower respiratory infection; I10 Essential (primary) hypertension; R73.9 Hyperglycemia, unspecified; K21.9 Gastro-esophageal reflux disease without esophagitis; F10.20 Alcohol dependence, uncomplicated; F17.210 Nicotine dependence, cigarettes, uncomplicated; E66.9 Obesity, unspecified; Z68.36 Body mass index [BMI] 36.0-36.9, adult; Z79.51 Long term (current) use of inhaled steroids; Z79.52 Long term (current) use of systemic steroids
CPT/HCPCS: 36415; 71045; 71275; 76642; 80048; 80053; 80076; 80202; 81003; 82805; 82962; 83735; 83880; 84145; 84484; 85025; 85610; 87040; 87070; 87077; 87186; 87205; 87804; 93005; 93306; 94002; 94003; 94640; 94660; 94667; 94668; 94760; 96365; 96367; 96375; 99285; J0330; J1100; J1170; J1630; J1650; J1940; J2175; J2250; J2543; J2704; J2930; J3010; J3411; J7030; J7512; J7605; Q9967

== ENCOUNTER 2019-12-06 12:52 | Emergency (ER) | payer BC ==
[2019-12-06 13:58] LABS: Absolute Lymphocytes (CBC) 1.6 K/uL (0.7-4.9); Basophils % 0.7 % (0-1.3); Hematocrit 43.8 % (39.6-49.0); MPV 7.5 fL (7.6-11.3); Protime INR 0.99; RBC Red Blood Cell Count 4.62 M/uL (4.33-5.43)
[2019-12-06 14:17] LABS: ALT/SGPT 24 U/L (12-78); AST/SGOT 14 U/L (15-37); Albumin 4.7 g/dL (3.4-5.0); Alkaline Phosphatase 65 U/L (45-117); BUN Blood Urea Nitrogen 8 mg/dL (7-18); Bicarbonate 26 mmol/L (21-32); Bilirubin Direct 0.1 mg/dL (0-0.2); Bilirubin Total 0.6 mg/dL (0.2-1.0); Glucose Level 98 mg/dL (74-106); Protein, Total 8.1 g/dL (6.4-8.2); Sodium Level 132 mmol/L (136-145)
[2019-12-06 14:25] LABS: Urine Blood NEGATIVE (NEG); Urine Glucose NEGATIVE (NEG); Urine Protein NEGATIVE (NEG); Urine Specific Gravity 1.015 (1.005-1.030)
[2019-12-06 14:44] LABS: Barbiturates NEGATIVE (NEGATIVE); Benzodiazepines NEGATIVE (NEGATIVE); Cocaine NEGATIVE (NEGATIVE); METHAMPHETAM POSITIVE (NEGATIVE); Methadone NEGATIVE (NEGATIVE); Opiates NEGATIVE (NEGATIVE); Phencyclidine NEGATIVE (NEGATIVE); THC Cannibis NEGATIVE (NEGATIVE)
--- NOTE | 2019-12-06 15:41 | ER ---
Nurse's Notes [facility] Name: Randy Briones Age: 49 yrs Sex: Male : 1970 Arrival Date: 12/06/2019 Time: 12:55 Bed 5 Private MD: Adrianna Michaels H Diagnosis: Diet Pill Abuse;Palpitations Presentation: 12/06 12:59 Presenting complaint: Patient states: "I took a bottle of my 's diet pills. The ca1 whole bottle has 40 pills on it. I took 38 last night, and took the last 2 about an hour or so ago". Pt denies suicidal thought ot harming self, states, "I don't know why I took them. Right now my vision is in and out right now". Transition of care: patient was not received from another setting of care. Onset of symptoms was December 06, 2019. Risk Assessment: Do you want to hurt yourself or someone else? Patient reports no desire to harm self or others. Initial Sepsis Screen: Does the patient meet any 2 criteria? No. Patient's initial sepsis screen is negative. Does the patient have a suspected source of infection? No. Patient's initial sepsis screen is negative. Care prior to arrival: None. 12:59 Method Of Arrival: Ambulatory ca1 12:59 Acuity: CANDACE 2 ca1 Triage Assessment: 13:15 General: Appears in no apparent distress. comfortable, obese, Behavior is cooperative, bp appropriate for age, anxious. Pain: Denies pain. EENT: No deficits noted. Neuro: No deficits noted. Cardiovascular: Rhythm is sinus tachycardia. Respiratory: No deficits noted. GI: No signs and/or symptoms were reported involving the gastrointestinal system. : No signs and/or symptoms were reported regarding the genitourinary system. Derm: No deficits noted. Musculoskeletal: No deficits noted. Historical: - Allergies: 13:03 Lisinopril; ca1 - PMHx: 13:03 Alcoholism; COPD; Hypertension; ca1 - Immunization history:: Adult Immunizations up to date. - Coronavirus screen:: The patient has NOT traveled to [place], [place], or [place] in the past 14 days. The patient has NOT had contact with known/suspected case of Coronavirus?. - Social history:: Smoking status: Patient reports the use of cigarette tobacco products, smokes two packs cigarettes per day. - Ebola Screening: : Patient negative for fever greater than or equal to 101.5 degrees Fahrenheit, and additional compatible Ebola Virus Disease symptoms Patient denies exposure to infectious person Patient denies travel to an Ebola-affected area in the 21 days before illness onset No symptoms or risks identified at this time. Screenin:16 Abuse screen: Denies threats or abuse. Denies injuries from another. Nutritional bp screening: No deficits noted. Tuberculosis screening: No symptoms or risk factors identified. Fall Risk None identified. Assessment: 13:16 General: SEE TRIAGE NOTE. bp 14:18 Reassessment: ALL CURRENT ORDERS COMPLETED, RESULTS PENDING. PT CONTINUES TO DENY SI/HI.bp 15:05 Reassessment: Patient is alert, oriented x 3, equal unlabored respirations, skin bp warm/dry/pink. VS STABLE ON MONITOR. FAMILY AT B/S. 15:15 Reassessment: PT AMBULATING WITHOUT DIFFICULTY, NO ACUTE S/S AT THIS TIME. INFORMED. bp 15:49 Reassessment: PT D/C HOME AMBULATORY WITH FAMILY, DX WITH DIET PILL ABUSE. bp Vital Signs: 13:03 BP 152 / 99; Pulse 116; Resp 20; Temp 98.3(O); Pulse Ox 98% on R/A; Weight 92.99 kg ca1 (R); Height 5 ft. 4 in. (162.56 cm) (R); 14:18 BP 116 / 89; Pulse 99; Resp 21; Pulse Ox 99% ; bp 15:05 BP 133 / 92; Pulse 114; Resp 24; Pulse Ox 97% ; bp 15:15 BP 121 / 73; Pulse 98; Resp 27; Temp 98.5; Pulse Ox 99% ; bp 13:03 Body Mass Index 35.19 (92.99 kg, 162.56 cm) ca1 ED Course: 12:55 Patient arrived in ED. mr 12:55 Adrianna Michaels DO is Private Physician. mr 13:02 Triage completed. ca1 13:03 Arm band placed on right wrist. ca1 13:09 Bonilla Jose MD is Attending Physician. kdr 13:14 Chuck Dover, RN is Primary Nurse. bp 13:16 Patient has correct armband on for positive identification. Bed in low position. Call bp light in reach. Side rails up X2. 13:17 EKG done, by cvt tech. reviewed by Bonilla Jose MD. at1 13:30 Inserted saline lock: 20 gauge in right antecubital area, using aseptic technique. bp 15:40 Adrianna Michaels DO is Referral Physician. kdr 15:49 No provider procedures requiring assistance completed. IV discontinued, intact, bp bleeding controlled, No redness/swelling at site. Pressure dressing applied. Administered Medications: No medications were administered Outcome: 15:41 Discharge ordered by . kdr 15:50 Discharged to home ambulatory, with family. bp 15:50 Condition: stable 15:50 Discharge instructions given to patient, Instructed on discharge instructions, follow up and referral plans. Demonstrated understanding of instructions, follow-up care. 15:50 Patient left the ED. bp Signatures: Bonilla Jose MD MD kdr Bianca Canela Amanda, conference services coordinator EKG Tat1 Chuck Dover RN RN bp Isadora Zarate RN RN ca1 Corrections: (The following items were deleted from the chart) 13:04 12:59 Presenting complaint: Patient states: "I took a bottle of my 's diet pills. ca1 The whole bottle has 40 pills on it. I took 38 last night, and took the last 2 about an hour or so ago". Pt denies suicidal thought ot harming self, states, "I don't know why I took them" ca1 15:49 15:05 Reassessment: VS STABLE ON MONITOR. FAMILY AT B/S bp bp
--- NOTE | 2019-12-06 15:41 | EDPHYS ---
Physician Documentation [facility] Name: Randy Briones Age: 49 yrs Sex: Male : 1970 Arrival Date: 12/06/2019 Time: 12:55 Bed 5 Private MD: Adrianna Michaels H ED Physician Bonilla Jose HPI: 12/06 17:41 This 49 yrs old Male presents to ER via Ambulatory with complaints of kdr Overdose - Diet pills. 17:41 The patient presents to the emergency department after a known overdose, that was kdr accidental, The patient started eating diet pills last night and by morning had consumed all of them. He was curious as to whether he had lost any weight yet.. Context: Method: the patient has a confirmed or suspected ingestion, Diet pills, Time: last night, Extent: it is unknown what amount the patient ingested, moderate ingestion. Associated signs and symptoms: Pertinent positives: shortness of breath, Very minor chest pressure/palpitations. Severity of symptoms: At their worst the symptoms were mild in the emergency department the symptoms have improved moderately. The patient has not experienced similar symptoms in the past. The patient has not recently seen a physician. Historical: - Allergies: 13:03 Lisinopril; ca1 - PMHx: 13:03 Alcoholism; COPD; Hypertension; ca1 - Immunization history:: Adult Immunizations up to date. - Coronavirus screen:: The patient has NOT traveled to [place], [place], or [place] in the past 14 days. The patient has NOT had contact with known/suspected case of Coronavirus?. - Social history:: Smoking status: Patient reports the use of cigarette tobacco products, smokes two packs cigarettes per day. - Ebola Screening: : Patient negative for fever greater than or equal to 101.5 degrees Fahrenheit, and additional compatible Ebola Virus Disease symptoms Patient denies exposure to infectious person Patient denies travel to an Ebola-affected area in the 21 days before illness onset No symptoms or risks identified at this time. ROS: 17:41 Constitutional: Negative for fever, chills, and weight loss, Eyes: Negative for injury, kdr pain, redness, and discharge, ENT: Negative for injury, pain, and discharge, Neck: Negative for injury, pain, and swelling, Abdomen/GI: Negative for abdominal pain, nausea, vomiting, diarrhea, and constipation, Back: Negative for injury and pain, : Negative for injury, bleeding, discharge, and swelling, MS/Extremity: Negative for injury and deformity, Skin: Negative for injury, rash, and discoloration, Neuro: Negative for headache, weakness, numbness, tingling, and seizure activity. Psych: Negative for depression, anxiety, suicide ideation, homicidal ideation, and hallucinations, Allergy/Immunology: Negative for hives, rash, and allergies, Endocrine: Negative for neck swelling, polydipsia, polyuria, polyphagia, and marked weight changes, Hematologic/Lymphatic: Negative for swollen nodes, abnormal bleeding, and unusual bruising. 17:41 Cardiovascular: Positive for chest pain, palpitations, Negative for edema, orthopnea. 17:41 Respiratory: Positive for shortness of breath, Negative for cough, dyspnea on exertion, hemoptysis, orthopnea, pleurisy, sputum production, wheezing. Exam: 17:41 Constitutional: This is a well developed, well nourished patient who is awake, alert, kdr and in no acute distress. Head/Face: Normocephalic, atraumatic. Eyes: Pupils equal round and reactive to light, extra-ocular motions intact. Lids and lashes normal. Conjunctiva and sclera are non-icteric and not injected. Cornea within normal limits. Periorbital areas with no swelling, redness, or edema. Neck: Trachea midline, no thyromegaly or masses palpated, and no cervical lymphadenopathy. Supple, full range of motion without nuchal rigidity, or vertebral point tenderness. No Meningismus. Chest/axilla: Normal chest wall appearance and motion. Nontender with no deformity. No lesions are appreciated. Respiratory: Lungs have equal breath sounds bilaterally, clear to auscultation and percussion. No rales, rhonchi or wheezes noted. No increased work of breathing, no retractions or nasal flaring. Abdomen/GI: Soft, non-tender, with normal bowel sounds. No distension or tympany. No guarding or rebound. No evidence of tenderness throughout. Back: No spinal tenderness. No costovertebral tenderness. Full range of motion. Skin: Warm, dry with normal turgor. Normal color with no rashes, no lesions, and no evidence of cellulitis. MS/ Extremity: Pulses equal, no cyanosis. Neurovascular intact. Full, normal range of motion. Neuro: Awake and alert, GCS 15, oriented to person, place, time, and situation. Cranial nerves II-XII grossly intact. Motor strength 5/5 in all extremities. Sensory grossly intact. Cerebellar exam normal. Normal gait. Psych: Awake, alert, with orientation to person, place and time. Behavior, mood, and affect are within normal limits. 17:41 Cardiovascular: Rate: tachycardic, Rhythm: regular, Pulses: no pulse deficits are appreciated, Heart sounds: normal, Edema: is not appreciated, JVD: is not appreciated. Vital Signs: 13:03 BP 152 / 99; Pulse 116; Resp 20; Temp 98.3(O); Pulse Ox 98% on R/A; Weight 92.99 kg ca1 (R); Height 5 ft. 4 in. (162.56 cm) (R); 14:18 BP 116 / 89; Pulse 99; Resp 21; Pulse Ox 99% ; bp 15:05 BP 133 / 92; Pulse 114; Resp 24; Pulse Ox 97% ; bp 15:15 BP 121 / 73; Pulse 98; Resp 27; Temp 98.5; Pulse Ox 99% ; bp 13:03 Body Mass Index 35.19 (92.99 kg, 162.56 cm) ca1 MDM: 15:41 Patient medically screened. kdr 17:46 Data reviewed: vital signs, nurses notes, lab test result(s), EKG, radiologic studies. kdr Counseling: I had a detailed discussion with the patient and/or guardian regarding: the historical points, exam findings, and any diagnostic results supporting the discharge/admit diagnosis, lab results, radiology results, the need for outpatient follow up. 12/06 13:24 Order name: Acetaminophen; Complete Time: 15:39 [facility] 12/06 13:24 Order name: Basic Metabolic Panel; Complete Time: 15:39 [facility] 12/06 13:24 Order name: CBC with Diff; Complete Time: 15:39 [facility] 12/06 13:24 Order name: ETOH Level; Complete Time: 15:39 [facility] 12/06 13:24 Order name: Hepatic Function; Complete Time: 15:39 [facility] 12/06 13:24 Order name: PT-INR; Complete Time: 15:39 [facility] 12/06 13:24 Order name: Ptt, Activated; Complete Time: 15:39 [facility] 12/06 13:24 Order name: Salicylate; Complete Time: 15:39 [facility] 12/06 13:24 Order name: Urine Drug Screen; Complete Time: 15:39 [facility] 12/06 13:24 Order name: EKG; Complete Time: 13:25 [facility] 12/06 13:24 Order name: EKG - Nurse/Tech; Complete Time: 13:39 [facility] 12/06 13:24 Order name: IV Saline Lock; Complete Time: 13:39 [facility] 12/06 13:24 Order name: Labs collected and sent; Complete Time: 13:39 [facility] 12/06 14:15 Order name: Urine Dipstick--Ancillary (enter results); Complete Time: 15:39 12/06 13:24 Order name: Urine Dipstick-Ancillary (obtain specimen); Complete Time: 14:19 [facility] EC:41 Rate is 119 beats/min. Rhythm is regular, Sinus tachycardia with No ectopy. QRS [place] is kdr Normal. TN interval is normal. Clinical impression: Normal ECG and Sinus tachycardia. Administered Medications: No medications were administered Disposition: 12/06/19 15:41 Discharged to Home. Impression: Diet Pill Abuse, Palpitations. - Condition is Stable. - Discharge Instructions: Palpitations, [id number]. - Medication Reconciliation Form, Thank You Letter form. - Follow up: Adrianna Michaels DO; When: 2 - 3 days; Reason: If symptoms return, Further diagnostic work-up, Recheck today's complaints, Continuance of care, Re-evaluation by your physician. - Problem is new. - Symptoms have improved. - Notes: Do not take diet medicines exscpet as directed on the label Signatures: Dispatcher [employer] EDIL Bonilla Jose MD MD [facility] Chuck Dover RN RN bp Tessa, BRIGETTE Muir RN ca1 Corrections: (The following items were deleted from the chart) 15:50 15:41 12/06/2019 15:41 Discharged to Home. Impression: Diet Pill Abuse; Palpitations. bp Condition is Stable. Forms are Medication Reconciliation Form, Thank You Letter, Antibiotic Education, Prescription Opioid Use. Follow up: Adrianna Michaels; When: 2 - 3 days; Reason: If symptoms return, Further diagnostic work-up, Recheck today's complaints, Continuance of care, Re-evaluation by your physician. Problem is new. Symptoms have improved. kdr
--- NOTE | 2019-12-06 15:52 | EKG ---
Test Date: 2019-12-06 Test Time: 13:12:31 Business Manager: CLEMENTINE MEASUREMENT RESULTS: Intervals: Rate: 119 ME: 128 QRSD: 94 QT: 330 QTc: 464 [place]: P: 58 ME: 128 QRS: 83 T: 76 INTERPRETIVE STATEMENTS: Sinus tachycardia Otherwise normal ECG Compared to ECG 02/19/2019 06:37:21 Sinus rhythm no longer present Electronically Signed On 12-06-19 15:51:20 SALAD BAR CLERK by Clovis Barrios
[2019-12-06 16:22] VITALS: BP 121/73; TEMP 98.5; O2SAT 99
== END 2019-12-06 15:50 | disposition home or self-care (01) ==
LOC: ER 12:52
DX: T50.5X1A Poisoning by appetite depressants, accidental (unintentional), initial encounter (principal); Y92.9 Unspecified place or not applicable; R00.2 Palpitations; I10 Essential (primary) hypertension
CPT/HCPCS: 36415; 80048; 80076; 80307; 80320; 80329; 81003; 85025; 85610; 85730; 93005; 99284

== ENCOUNTER 2020-06-10 07:55 | Emergency (ER) | payer BC, OTHER ==
[2020-06-10 08:22] LABS: Absolute Lymphocytes (CBC) 3.8 K/uL (0.7-4.9); Basophils % 1.3 % (0-1.3); Hematocrit 44.4 % (39.6-49.0); Lymphocytes % 29.8 % (15.3-44.8); MPV 6.7 fL (7.6-11.3); RBC Red Blood Cell Count 4.62 M/uL (4.33-5.43)
[2020-06-10 08:24] LABS: Protime INR 0.81
--- NOTE | 2020-06-10 08:24 | RAD REPORT ---
EXAM DESCRIPTION: CT - Ct Stroke Brain Wo Cont - 06/10/2020 8:15 am CLINICAL HISTORY: Numbness COMPARISON: 2018 TECHNIQUE: Computed axial tomography of the head was obtained. All CT scans are performed using dose optimization technique as appropriate and may include automated exposure control or mA/KV adjustment according to patient size. FINDINGS: An intracranial bleed is not seen . The ventricles are normal in caliber. No extra-axial fluid collection is noted. Fluid within the sinuses/ mastoids is not seen. IMPRESSION: No acute intracranial abnormality is seen. If patient's symptoms persist MRI of the bra in would be recommended. Dr Sotelo of the emergency room was notified at 8:06 a.m. June 10, 2020
[2020-06-10 08:39] LABS: BUN Blood Urea Nitrogen 11 mg/dL (7-18); Bicarbonate 26 mmol/L (21-32); Glucose Level 117 mg/dL (74-106); Potassium 4.1 mmol/L (3.5-5.1); Sodium Level 138 mmol/L (136-145)
[2020-06-10] MEDS ORDERED: ASPIRIN 81 MG CHEWABLE TABLET ONE (08:56)
--- NOTE | 2020-06-10 09:06 | RAD REPORT ---
EXAM DESCRIPTION: [place] Single View06/10/2020 8:29 am CLINICAL HISTORY: Numbness and weakness COMPARISON: 2018 FINDINGS: The lungs appear clear of acute infiltrate. The heart is normal size IMPRESSION: No acute abnormalities displayed
[2020-06-10] MEDS ORDERED: FOLIC ACID 1 MG, MULTIVITAMINS INJ 10 ML, THIAMINE HCL 100 MG in NA CHLORIDE 0.9% 1,000 ML IV ONE (10:00)
--- NOTE | 2020-06-10 12:40 | ER ---
Nurse's Notes [facility] Name: Randy Briones Age: 49 yrs Sex: Male : 1970 Arrival Date: 06/10/2020 Time: 07:56 Bed 8 Private MD: Diagnosis: Paresthesia of skin;Alcohol abuse Presentation: 06/10 07:59 Chief complaint: Patient states: L sided facial and arm numbness with L leg weakness ss that patient noticed when he woke up this morning at 0700. Pt reports that he quit drinking alcohol 1.5 years ago and over the past two weeks he has been binge drinking heavily. Last drink was last night at 1130pm. Coronavirus screen: Client denies travel out of the [place] in the last 14 days. SOB (history of severe COPD. Pt reports that this is not any different from his baseline COPD symptoms.". Ebola Screen: Patient denies exposure to infectious person. Patient denies travel to an Ebola-affected area in the 21 days before illness onset. Initial Sepsis Screen: Does the patient meet any 2 criteria? No. Patient's initial sepsis screen is negative. Does the patient have a suspected source of infection? No. Patient's initial sepsis screen is negative. Risk Assessment: Do you want to hurt yourself or someone else? Patient reports no desire to harm self or others. Onset of symptoms was June 10, 2020. 07:59 Acuity: CANDACE 1 ss 08:12 Method Of Arrival: Wheelchair ss Historical: - Allergies: 08:17 Lisinopril; ss - Home Meds: 08:30 Advair Diskus 250-50 mcg/dose Inhl dsdv 1 puff 2 times per day [Active]; albuterol hb sulfate 2.5 mg /3 mL (0.083 %) Inhl nebu 3 mL 3 times per day [Active]; gabapentin 100 mg Oral cap 3 caps 3 times per day [Active]; montelukast 10 mg Oral tab 1 tab once daily [Active]; Nexium 40 mg Oral cpDR 1 cap 2 times per day [Active]; Norvasc 10 mg Oral tab once daily [Active]; Spiriva with HandiHaler inhalation [Active]; Triamterene-Hydrochlorothiazid Oral once daily [Active]; - PMHx: 08:17 Alcoholism; COPD; Hypertension; ss - PSHx: 08:30 None; hb - Immunization history:: Adult Immunizations up to date. - Social history:: Smoking status: Patient reports the use of cigarette tobacco products, smokes two packs cigarettes per day. Screenin:13 Abuse screen: Denies threats or abuse. Denies injuries from another. Nutritional hb screening: No deficits noted. Tuberculosis screening: No symptoms or risk factors identified. Fall Risk None identified. Assessment: 07:59 Reassessment: CODE STROKE CALLED, PT TO CT WITH KILEY MACHUCA. hb 08:04 Reassessment: MARITZA WEBBER AT BEDSIDE, PT RETURNED FROM CT. hb 08:08 Reassessment: BGL 118. hb 08:10 Reassessment: 20 G RT AC, BLOOD SENT TO LAB WITH STROKE STICKER, INSIDE LAB NOTIFIED. hb 08:12 General: Appears in no apparent distress. Behavior is calm, cooperative. Pain: Pain hb currently is 6 out of 10 on a pain scale. Neuro: Level of Consciousness is awake, alert, obeys commands, Oriented to person, place, time, situation. Cardiovascular: Capillary refill < 3 seconds Patient's skin is warm and dry. Respiratory: Respiratory effort is even, unlabored, Respiratory pattern is regular, symmetrical. GI: No signs and/or symptoms were reported involving the gastrointestinal system. : No signs and/or symptoms were reported regarding the genitourinary system. EENT: No signs and/or symptoms were reported regarding the EENT system. Derm: Skin is pink, warm \\T\\ dry. Musculoskeletal: Reports LEFT SIDED FACIAL PAIN AND SWELLING. 09:00 Reassessment: Patient appears in no apparent distress at this time. Patient and/or hb family updated on plan of care and expected duration. Pain level reassessed. Patient is alert, oriented x 3, equal unlabored respirations, skin warm/dry/pink. 09:45 Reassessment: Litzy is to observe and repeat troponin at 4 hr nathan. hb 10:00 Reassessment: Patient appears in no apparent distress at this time. Patient and/or hb family updated on plan of care and expected duration. Pain level reassessed. Patient is alert, oriented x 3, equal unlabored respirations, skin warm/dry/pink. 11:00 Reassessment: Patient appears in no apparent distress at this time. Patient and/or hb family updated on plan of care and expected duration. Pain level reassessed. Patient is alert, oriented x 3, equal unlabored respirations, skin warm/dry/pink. 12:00 Reassessment: Patient appears in no apparent distress at this time. Patient and/or hb family updated on plan of care and expected duration. Pain level reassessed. Patient is alert, oriented x 3, equal unlabored respirations, skin warm/dry/pink. Vital Signs: 07:59 BP 177 / 125; Pulse 113; Resp 24; Pulse Ox 96% on R/A; Weight 92.53 kg; Height 5 ft. 4 ss in. (162.56 cm); Pain 6/10; 08:35 BP 137 / 107; Pulse 101; Resp 18; Pulse Ox 97% on R/A; hb 09:30 BP 129 / 104; Pulse 97; Resp 16; Pulse Ox 97% on R/A; hb 10:30 BP 153 / 106; Pulse 89; Resp 21; Pulse Ox 99% on R/A; Pain 0/10; hb 11:49 BP 157 / 107; Pulse 100; Resp 20; Pulse Ox 98% ; hb 07:59 Body Mass Index 35.02 (92.53 kg, 162.56 cm) ss NIH Stroke Scale Scores: 08:35 NIHSS Score: 0 hb ED Course: 07:56 Patient arrived in ED. ds1 07:59 Issa Mayberry NP is PHCP. pm1 07:59 Satnam Subramanian MD is Attending Physician. pm1 08:10 Inserted saline lock: 20 gauge in right antecubital area, using aseptic technique. hb Blood collected. 08:13 Myra Sandoval, RN is Primary Nurse. hb 08:15 CT Stroke Brain w/o Contrast In Process Unspecified. EDMS 08:15 Triage completed. ss 08:17 Arm band placed on right wrist. ss 08:18 Patient has correct armband on for positive identification. Placed in gown. Bed in low hb position. Call light in reach. Side rails up X 1. 08:20 EKG done, by ED staff, reviewed by Issa Mayberry NP. dh3 08:29 Stroke CXR 1 View In Process Unspecified. EDMS 12:45 No provider procedures requiring assistance completed. IV discontinued, intact, hb bleeding controlled, No redness/swelling at site. Administered Medications: 08:48 Drug: Aspirin 325 mg Route: PO; hb 09:30 Follow up: Response: No adverse reaction hb 09:40 Drug: Banana Bag - (NS 0.9% 1000 ml, foLIC Acid 1 mg, Thiamine 100 mg, Multivitamin 1 hb amp) Route: IV; Rate: calculated rate; Site: right antecubital; Outcome: 12:39 Discharge ordered by . pm1 12:45 Discharged to home ambulatory. hb 12:45 Condition: stable 12:45 Discharge instructions given to patient, Instructed on discharge instructions, follow up and referral plans. medication usage, Demonstrated understanding of instructions, follow-up care, medications. 12:46 Patient left the ED. NIH Stroke Scale - NIH Stroke Score Date: 06/10/2020 Time: 08:35 Total Score = 0 1a. Level of Consciousness (LOC) - 0(Alert) 1b. Level of Consciousness (LOC) (Year \\T\\ Age) - 0(Both) 1c. LOC Commands (Open \\T\\ Closes Eyes/Adjunct Psychology Instructor) - 0(Both) 2. Best Gaze (Lateral Gaze Paresis) - 0(Normal) 3. Visual Field Loss - 0(No visual loss) 4. Facial Palsy - 0(Normal) 5a. Left Arm: Motor (10-second hold) - 0(No drift) 5b. Right Arm: Motor (10-second hold) - 0(No drift) 6a. Left Leg: Motor (5-second hold - always test supine) - 0(No drift) 6b. Right Leg: Motor (5-second hold - always test supine) - 0(No drift) 7. Limb Ataxia (finger/nose \\T\\ heel/head - test with eyes open) - 0(Absent) 8. Sensory Loss (pinprick arms/legs/face) - 0(Normal) 9. Best Language: Aphasia (description/naming/reading) - 0(No aphasia) 10. Dysarthria (speech clarity - read or repeat words) - 0(Normal) 11. Extinction and Inattention (visual/tactile/auditory/spatial/personal) - 0(No abnormality) Initials: hb Signatures: Dispatcher [employer] [facility] Jessica Melchor ds1 Kiley Cuello RN RN ss Issa Mayberry, FIGURE REFINISHER AND REPAIRER FIGURE REFINISHER AND REPAIRER pm1 Myra Sandoval RN RN Gayle Hernández 3 Corrections: (The following items were deleted from the chart) 11:40 07:59 Reassessment: Patient is alert/active/playful, equal unlabored hb respirations, skin warm/dry/pink. Critical care time stopped, patient has stabilized. DE STROKE CALLED, PT TO CT WITH KILEY MACHUCA. hb
--- NOTE | 2020-06-10 12:40 | EDPHYS ---
Physician Documentation [facility] Name: Randy Briones Age: 49 yrs Sex: Male : 1970 Arrival Date: 06/10/2020 Time: 07:56 Bed 8 Private MD: ED Physician Satnam Subramanian HPI: 06/10 08:05 This 49 yrs old Male presents to ER via Wheelchair with complaints of L Side pm1 Numbness. 08:05 The patient's problem is reported as paresthesias, left face, left arm, left leg. pm1 Onset: The symptoms/episode began/occurred at 07:00. Duration: This was a single incident. Context: symptoms became apparent after left eye pain and left biceps pain upon waking up this morning and looking in the mirror and seeing her left eye was a little swollen, occurred at home, Possible contributing factors include: Patient is known to have ingested ETOH: Binge drinking for the past two weeks. Last drink 2330 last night before passing out. The symptoms are alleviated by nothing. The symptoms are aggravated by nothing. Associated signs and symptoms: Pertinent positives: left eye pain and swelling, and left arm pain, Pertinent negatives: abdominal pain, chest pain, dizziness, headache, nausea, palpitations, vomiting. Patient's baseline: Neuro: alert and fully oriented, Motor: no deficits, Ambulation: walks without assistance, Speech: normal, The patient has a previous history of Alcoholism, COPD, HTN. The patient has not recently seen a physician, the patient's primary care provider is Dr. Michaels. Historical: - Allergies: 08:17 Lisinopril; ss - Home Meds: 08:30 Advair Diskus 250-50 mcg/dose Inhl dsdv 1 puff 2 times per day [Active]; albuterol hb sulfate 2.5 mg /3 mL (0.083 %) Inhl nebu 3 mL 3 times per day [Active]; gabapentin 100 mg Oral cap 3 caps 3 times per day [Active]; montelukast 10 mg Oral tab 1 tab once daily [Active]; Nexium 40 mg Oral cpDR 1 cap 2 times per day [Active]; Norvasc 10 mg Oral tab once daily [Active]; Spiriva with HandiHaler inhalation [Active]; Triamterene-Hydrochlorothiazid Oral once daily [Active]; - PMHx: 08:17 Alcoholism; COPD; Hypertension; ss - PSHx: 08:30 None; hb - Immunization history:: Adult Immunizations up to date. - Social history:: Smoking status: Patient reports the use of cigarette tobacco products, smokes two packs cigarettes per day. ROS: 08:05 Constitutional: Negative for fever, chills, and weight loss, ENT: Negative for injury, pm1 pain, and discharge, Neck: Negative for injury, pain, and swelling, Cardiovascular: Negative for chest pain, palpitations, and edema. 08:05 Respiratory: Negative for shortness of breath, cough, wheezing, and pleuritic chest pain, Abdomen/GI: Negative for abdominal pain, nausea, vomiting, diarrhea, and constipation, Back: Negative for injury and pain, Skin: Negative for injury, rash, and discoloration. 08:05 Eyes: Positive for pain, swelling, of the left eye. 08:05 MS/extremity: Positive for pain, of the left bicep, Negative for decreased range of motion, deformity. 08:05 Neuro: Positive for numbness, of the left side of head, left arm and left leg, Negative for altered mental status, dizziness, headache. 08:05 Psych: Positive for alcohol dependence. Exam: 08:32 Radiologist reports: Negative for acute findings pm1 08:32 Constitutional: This is a well developed, well nourished patient who is awake, alert, and in no acute distress. Head/Face: Normocephalic, atraumatic. 08:32 ENT: Nares patent. No nasal discharge, no septal abnormalities noted. Tympanic membranes are normal and external auditory canals are clear. Oropharynx with no redness, swelling, or masses, exudates, or evidence of obstruction, uvula midline. Mucous membranes moist. Neck: Trachea midline, no thyromegaly or masses palpated, and no cervical lymphadenopathy. Supple, full range of motion without nuchal rigidity, or vertebral point tenderness. No Meningismus. Chest/axilla: Normal chest wall appearance and motion. Nontender with no deformity. No lesions are appreciated. Cardiovascular: Regular rate and rhythm with a normal S1 and S2. No gallops, murmurs, or rubs. Normal PMI, no JVD. No pulse deficits. Respiratory: Lungs have equal breath sounds bilaterally, clear to auscultation and percussion. No rales, rhonchi or wheezes noted. No increased work of breathing, no retractions or nasal flaring. Abdomen/GI: Soft, non-tender, with normal bowel sounds. No distension or tympany. No guarding or rebound. No evidence of tenderness throughout. Back: No spinal tenderness. No costovertebral tenderness. Full range of motion. 08:32 Skin: Warm, dry with normal turgor. Normal color with no rashes, no lesions, and no evidence of cellulitis. MS/ Extremity: Pulses equal, no cyanosis. Neurovascular intact. Full, normal range of motion. 08:32 Eyes: Pupils: no acute changes, Extraocular movements: no acute changes, Conjunctiva: normal, no acute changes, Corneas: are normal, no evidence of abrasion, no foreign body, Lids and lashes: mild swelling to left upper and lower eyelids. 08:32 Neuro: Exam negative for acute changes, Orientation: is normal, Mentation: is normal, Memory: is normal, Cranial nerves: CN II- XII are normal as tested, Motor: moves all fours, Sensation: is normal, no obvious gross deficits. Vital Signs: 07:59 BP 177 / 125; Pulse 113; Resp 24; Pulse Ox 96% on R/A; Weight 92.53 kg; Height 5 ft. 4 ss in. (162.56 cm); Pain 6/10; 08:35 BP 137 / 107; Pulse 101; Resp 18; Pulse Ox 97% on R/A; hb 09:30 BP 129 / 104; Pulse 97; Resp 16; Pulse Ox 97% on R/A; hb 10:30 BP 153 / 106; Pulse 89; Resp 21; Pulse Ox 99% on R/A; Pain 0/10; hb 11:49 BP 157 / 107; Pulse 100; Resp 20; Pulse Ox 98% ; hb 07:59 Body Mass Index 35.02 (92.53 kg, 162.56 cm) NIH Stroke Scale Scores: 08:35 NIHSS Score: 0 hb MDM: 07:59 Patient medically screened. pm1 12:38 Data reviewed: vital signs. Data interpreted: Pulse oximetry: on room air is 98 %. pm1 Interpretation: normal. 12:38 Counseling: I had a detailed discussion with the patient and/or guardian regarding: the pm1 historical points, exam findings, and any diagnostic results supporting the discharge/admit diagnosis, lab results, radiology results, the need for outpatient follow up, to return to the emergency department if symptoms worsen or persist or if there are any questions or concerns that arise at home. 06/10 08:00 Order name: Basic Metabolic Panel; Complete Time: 08:42 pm1 06/10 08:00 Order name: CBC with Diff; Complete Time: 08:32 pm1 06/10 08:00 Order name: Protime (+inr); Complete Time: 08:32 pm1 06/10 08:00 Order name: Ptt, Activated; Complete Time: 08:32 pm1 06/10 08:01 Order name: ETOH Level; Complete Time: 09:14 pm1 06/10 08:08 Order name: Troponin (emerg Dept Use Only); Complete Time: 08:54 pm1 06/10 08:00 Order name: CT Stroke Brain w/o Contrast; Complete Time: 08:32 pm1 06/10 08:00 Order name: Stroke CXR 1 View; Complete Time: 09:09 pm1 06/10 08:00 Order name: EKG; Complete Time: 08:01 pm1 06/10 08:00 Order name: Accucheck; Complete Time: 08:34 pm1 06/10 08:18 Order name: Glucose, Ancillary Testing; Complete Time: 08:32 EDMS 06/10 11:52 Order name: Troponin (emerg Dept Use Only); Complete Time: 12:37 hb 06/10 08:00 Order name: Cardiac monitoring; Complete Time: 08:24 pm1 06/10 08:00 Order name: EKG - Nurse/Tech; Complete Time: 08:24 pm1 06/10 08:00 Order name: IV Saline Lock; Complete Time: 08:34 pm1 06/10 08:00 Order name: Labs collected and sent; Complete Time: 08:34 pm1 06/10 08:00 Order name: NPO; Complete Time: 08:34 pm1 06/10 08:00 Order name: O2 Per Protocol; Complete Time: 08:34 pm1 06/10 08:00 Order name: O2 Sat Monitoring; Complete Time: 08:34 pm1 06/10 08:00 Order name: Stroke Swallow Screen; Complete Time: 08:34 pm1 Administered Medications: 08:48 Drug: Aspirin 325 mg Route: PO; hb 09:30 Follow up: Response: No adverse reaction hb 09:40 Drug: Banana Bag - (NS 0.9% 1000 ml, foLIC Acid 1 mg, Thiamine 100 mg, Multivitamin 1 hb amp) Route: IV; Rate: calculated rate; Site: right antecubital; Disposition: 17:51 Co-signature as Attending Physician, Satnam Subramanian MD. ma2 Disposition: 06/10/20 12:39 Discharged to Home. Impression: Paresthesia of skin, Alcohol abuse. - Condition is Stable. - Discharge Instructions: Finding Treatment for Addiction, Paresthesia, Alcohol Abuse and Nutrition. - Medication Reconciliation Form, Thank You Letter, Antibiotic Education, Prescription Opioid Use form. - Follow up: Emergency Department; When: As needed; Reason: Worsening of condition. Follow up: Private Physician; When: 2 - 3 days; Reason: Recheck today's complaints, Continuance of care, Re-evaluation by your physician. - Problem is new. - Symptoms have improved. NIH Stroke Scale - NIH Stroke Score Date: 06/10/2020 Time: 08:35 Total Score = 0 1a. Level of Consciousness (LOC) - 0(Alert) 1b. Level of Consciousness (LOC) (Year \T\ Age) - 0(Both) 1c. LOC Commands (Open \T\ Closes Eyes/Hand Launderer) - 0(Both) 2. Best Gaze (Lateral Gaze Paresis) - 0(Normal) 3. Visual Field Loss - 0(No visual loss) 4. Facial Palsy - 0(Normal) 5a. Left Arm: Motor (10-second hold) - 0(No drift) 5b. Right Arm: Motor (10-second hold) - 0(No drift) 6a. Left Leg: Motor (5-second hold - always test supine) - 0(No drift) 6b. Right Leg: Motor (5-second hold - always test supine) - 0(No drift) 7. Limb Ataxia (finger/nose \T\ heel/head - test with eyes open) - 0(Absent) 8. Sensory Loss (pinprick arms/legs/face) - 0(Normal) 9. Best Language: Aphasia (description/naming/reading) - 0(No aphasia) 10. Dysarthria (speech clarity - read or repeat words) - 0(Normal) 11. Extinction and Inattention (visual/tactile/auditory/spatial/personal) - 0(No abnormality) Initials: hb Signatures: Dispatcher [employer] EDMS Kiley Cuello RN RN Issa Mayberry, [employer] pm1 Myra Sandoval RN RN Satnam Subramanian MD MD ma2 Corrections: (The following items were deleted from the chart) 12:46 12:39 06/10/2020 12:39 Discharged to Home. Impression: Paresthesia of skin; hb Alcohol abuse. Condition is Stable. Forms are Medication Reconciliation Form, Thank You Letter, Antibiotic Education, Prescription Opioid Use. Follow up: Emergency Department; When: As needed; Reason: Worsening of condition. Follow up: Private Physician; When: 2 - 3 days; Reason: Recheck today's complaints, Continuance of care, Re-evaluation by your physician. Problem is new. Symptoms have improved. pm1
[2020-06-10 13:12] VITALS: BP 157/107; O2SAT 98
--- NOTE | 2020-06-12 11:07 | EKG ---
Test Date: 2020-06-10 Test Time: 08:16:44 [employer] Conductor: WALE MEASUREMENT RESULTS: Intervals: Rate: 98 HI: 124 QRSD: 94 QT: 350 QTc: 446 [place]: P: 53 HI: 124 QRS: 78 T: 72 INTERPRETIVE STATEMENTS: Normal sinus rhythm Incomplete right bundle branch block Borderline ECG Compared to ECG 12/06/2019 13:12:31 Incomplete right bundle-branch block now present Sinus tachycardia no longer present Electronically Signed On 06-12-20 11:03:16 CDT by Clovis Barrios
== END 2020-06-10 12:46 | disposition home or self-care (01) ==
LOC: ER 07:55
DX: F10.20 Alcohol dependence, uncomplicated (principal); I10 Essential (primary) hypertension; J44.9 Chronic obstructive pulmonary disease, unspecified; Z88.8 Allergy status to other drugs, medicaments and biological substances
CPT/HCPCS: 85025; 80048; 36415; 80320; 85610; 82947; 85730; 84484 ×2; 70450; 71045; J3411; J7030; 93005; 96374; 99291; 99292

== ENCOUNTER 2020-12-12 08:38 | Emergency (ER) | payer BC ==
--- OUTSIDE RECORDS SUMMARY | 2020-12-12 08:46 | XMS REPORT | Continuity of Care Document ---
:1970 Author Organization [facility] t Address [address] [place] [address] Dr. Zhou [address] [place] [id number] Care Team Providers Name Role Phone Unavailable Unavailable Unavailable Problems This patient has no known problems. Allergies, Adverse Reactions, Alerts This patient has no known allergies or adverse reactions. Medications This patient has no known medications. Procedures This patient has no known procedures. Results This patient has no known results.
--- NOTE | 2020-12-12 09:37 | ER ---
Nurse's Notes [facility] Name: Randy Briones Age: 50 yrs Sex: Male : 1970 Arrival Date: 12/12/2020 Time: 08:41 Bed Waiting Private MD: Diagnosis: Presentation: 12/12 08:42 Chief complaint: Patient states: left sided abd pain, dyspnea x 3 weeks. Coronavirus sv screen: Client denies travel out of the [place] in the last 14 days. At this time, the client does not indicate any symptoms associated with coronavirus-19. The client reports previous COVID testing was negative. Date of collection: December 03, 2020. Ebola Screen: No symptoms or risks identified at this time. Risk Assessment: Do you want to hurt yourself or someone else? Patient reports no desire to harm self or others. Onset of symptoms was November 2020. 08:42 Method Of Arrival: Ambulatory sv 08:42 Acuity: CANDACE 3 sv 08:44 Initial Sepsis Screen: Does the patient meet any 2 criteria? RR > 20 per min. HR > 90 sv bpm. No. Patient's initial sepsis screen is negative. Does the patient have a suspected source of infection? No. Patient's initial sepsis screen is negative. Triage Assessment: 08:46 General: Appears in no apparent distress. uncomfortable, well developed, Behavior is sv calm, cooperative, appropriate for age. Pain: Complains of pain in left lateral anterior chest and anterior aspect of left lateral abdomen. Neuro: Level of Consciousness is awake, alert, obeys commands, Oriented to person, place, time, situation, Gait is steady. Respiratory: Respiratory effort is even, unlabored. Historical: - Allergies: 08:43 Lisinopril; sv - PMHx: 08:43 Alcoholism; COPD; Hypertension; sv - PSHx: 08:43 None; sv - Immunization history:: Adult Immunizations up to date. - Social history:: Smoking status: Patient reports the use of cigarette tobacco products, smokes one pack cigarettes per day. Patient uses alcohol, on a daily basis. Assessment: 08:54 Reassessment: Received VO for xrays from Dr Jose. sv Vital Signs: 08:44 BP 156 / 101; Pulse 118; Resp 22; Temp 97; Pulse Ox 100% on R/A; Weight 95.25 kg; sv Height 5 ft. 4 in. (162.56 cm); 08:44 Body Mass Index 36.04 (95.25 kg, 162.56 cm) sv ED Course: 08:41 Patient arrived in ED. ds1 08:43 Triage completed. sv 08:44 Arm band placed on. sv Administered Medications: No medications were administered Outcome: 09:36 Patient left the ED. sv Signatures: Charlotte Gentile RN RN sv Jessica Melchor ds1 Corrections: (The following items were deleted from the chart) 08:46 08:44 Pulse 118bpm; Resp 22bpm; Pulse Ox 100% RA; Temp 97F; 95.25 kg; Height 5 ft. 4 sv in.; BMI: 36.0; sv 08:47 08:42 Acuity: CANDACE 4 sv sv
[2020-12-12 09:41] VITALS: BP 156/101; TEMP 97; O2SAT 100
== END 2020-12-12 09:36 | disposition left against medical advice (07) ==
LOC: ER 08:38
DX: Z53.21 Procedure and treatment not carried out due to patient leaving prior to being seen by health care provider (principal)
CPT/HCPCS: 99281

== ENCOUNTER 2020-12-14 03:21 | Observation (INO) | payer BC ==
--- OUTSIDE RECORDS SUMMARY | 2020-12-14 03:24 | XMS REPORT | Continuity of Care Document ---
:1970 Author Organization [facility] t Address [address] [place] [address] Dr. Zhou [address] [place] [id number] Care Team Providers Name Role Phone Unavailable Unavailable Unavailable Problems This patient has no known problems. Allergies, Adverse Reactions, Alerts This patient has no known allergies or adverse reactions. Medications This patient has no known medications. Procedures This patient has no known procedures. Results This patient has no known results.
[2020-12-14] MEDS ORDERED: METHYLPREDNISOLONE 125 MG INJ ONE (04:12)
[2020-12-14] MEDS ORDERED: IPRATROPIUM BROM 0.5MG/2.5ML ONE ×2 (04:12→09:23)
[2020-12-14] MEDS ORDERED: NITROGLYCERIN 1 GM PKT TD ONE (04:12)
[2020-12-14] MEDS ORDERED: Levofloxacin500mg IV 500 MG/100 ML BAG IV ONE (04:13)
[2020-12-14] MEDS ORDERED: NA CHLORIDE 0.9% 1,000 ML ONE (04:13)
[2020-12-14] MEDS ORDERED: LEVALBUTEROL 1.25 MG/3 ML NEB ONE ×2 (04:13→06:33)
[2020-12-14] MEDS ORDERED: LORazepam 2 MG/ML VIAL ONE (04:29)
[2020-12-14] MEDS ORDERED: THIAMINE 200 MG/2 ML INJ ONE (04:29)
[2020-12-14 04:30] LABS: Absolute Lymphocytes (CBC) 1.5 K/uL (0.7-4.9); Basophils % 0.7 % (0-1.3); Hematocrit 47.2 % (39.6-49.0); Lymphocytes % 11.3 % (15.3-44.8); MPV 7.4 fL (7.6-11.3); Protime INR 0.8; RBC Red Blood Cell Count 4.62 M/uL (4.33-5.43)
[2020-12-14] MEDS ORDERED: Magnesium Sulfate 2gm IVPB 2 G/50 ML BAG IV ONE (04:30)
[2020-12-14 04:41] LABS: ALT/SGPT 37 U/L (12-78); AST/SGOT 38 U/L (15-37); Albumin 4.4 g/dL (3.4-5.0); Alkaline Phosphatase 69 U/L (45-117); BUN Blood Urea Nitrogen 10 mg/dL (7-18); Bicarbonate 25 mmol/L (21-32); Bilirubin Direct 0.1 mg/dL (0-0.2); Bilirubin Total 0.4 mg/dL (0.2-1.0); Glucose Level 103 mg/dL (74-106); Magnesium 2.4 mg/dL (1.8-2.4); NT PRO-BNP 137 pg/mL (<125); Potassium 4.2 mmol/L (3.5-5.1); Protein, Total 8.2 g/dL (6.4-8.2); Sodium Level 139 mmol/L (136-145); Troponin (Emerg Dept Use Only) < 0.02 ng/mL (0.0-0.045)
[2020-12-14] MEDS ORDERED: MORPHINE 2 MG/ML SYR ONE (04:48)
[2020-12-14] MEDS ORDERED: ONDANSETRON 4 MG/2 ML VIAL ONE (04:48)
--- NOTE | 2020-12-14 04:49 | ER ---
Nurse's Notes [facility] Name: Randy Briones Age: 50 yrs Sex: Male : 1970 Arrival Date: 12/14/2020 Time: 03:22 Bed 7 Private MD: Diagnosis: Alcohol abuse;Chronic obstructive pulmonary disease with (acute) exacerbation;Obesity, unspecified;Elevated white blood cell count;Essential (primary) hypertension Presentation: 12/14 03:47 Chief complaint: Patient states: I'VE BEEN HAVING LEFT SIDE PAIN. I WENT TO [facility], THEY rv DID CHEST X-RAY. DR SARKAR IS MY LUNG DOCTOR. I CHECKED MY OXYGEN AT HOME AND IT WAS 83%. Coronavirus screen: Client denies travel out of the [place] in the last 14 days. The client reports previous COVID testing was negative. Date of collection: December 12, 2020. Ebola Screen: No symptoms or risks identified at this time. Initial Sepsis Screen: Does the patient meet any 2 criteria? No. Patient's initial sepsis screen is negative. Does the patient have a suspected source of infection? No. Patient's initial sepsis screen is negative. Risk Assessment: Do you want to hurt yourself or someone else? Patient reports no desire to harm self or others. Onset of symptoms was December 13, 2020. 03:47 Method Of Arrival: Ambulatory rv 03:47 Acuity: CANDACE 3 rv Triage Assessment: 03:50 General: Appears uncomfortable, ill, Behavior is calm, cooperative. Pain: Complains of rv pain in LEFT SIDE. Neuro: Level of Consciousness is awake, alert, obeys commands, Oriented to person, place, time, situation. Cardiovascular: Patient's skin is warm and dry. Respiratory: Reports shortness of breath at rest Onset: The symptoms/episode began/occurred gradually, the patient has moderate shortness of breath. GI: No signs and/or symptoms were reported involving the gastrointestinal system. : No signs and/or symptoms were reported regarding the genitourinary system. Derm: Skin is intact. Historical: - Allergies: 03:50 Lisinopril; rv - PMHx: 03:50 Alcoholism; COPD; Hypertension; rv - PSHx: 03:50 None; rv - Immunization history:: Adult Immunizations up to date. - Social history:: Smoking status: Patient reports the use of cigarette tobacco products, smokes two packs cigarettes per day. - Family history:: not pertinent. Screenin:51 Abuse screen: Denies threats or abuse. Denies injuries from another. Nutritional rv screening: No deficits noted. Tuberculosis screening: No symptoms or risk factors identified. Fall Risk None identified. Assessment: 03:52 Cardiovascular: Rhythm is sinus rhythm. Respiratory: Airway is patent Respiratory rv effort is labored, Breath sounds are coarse bilaterally. 06:00 Reassessment: Patient appears in no apparent distress at this time. Patient and/or wh family updated on plan of care and expected duration. Pain level reassessed. Patient is alert, oriented x 3, equal unlabored respirations, skin warm/dry/pink. Vital Signs: 03:47 BP 195 / 116; Pulse 96; Resp 25; Temp 98.2; Pulse Ox 97% on R/A; Weight 96.16 kg; rv Height 5 ft. 4 in. (162.56 cm); 05:30 BP 143 / 71; Pulse 89; Resp 18; Pulse Ox 91% on R/A; wh 03:47 Body Mass Index 36.39 (96.16 kg, 162.56 cm) rv ED Course: 03:22 Patient arrived in ED. cl3 03:43 Bg Briones MD is Attending Physician. akash 03:47 Darrius Nayak RN is Primary Nurse. rv 03:50 Triage completed. rv 03:51 Arm band placed on right wrist. Patient placed in the treatment room, on a stretcher, rv Patient notified of wait time. 03:52 Patient has correct armband on for positive identification. shelter monitor on. Pulse rv ox on. NIBP on. 03:52 No provider procedures requiring assistance completed. rv 04:07 Inserted saline lock: 20 gauge in right antecubital area, using aseptic technique. oe Blood collected. 04:20 XRAY Chest (1 view) In Process Unspecified. EDMS 04:47 Joselito Thibodeaux MD is Hospitalizing Provider. akash 04:49 Sotero Leigh DO is Hospitalizing Provider. akash 06:15 Patient admitted, IV remains in place. wh Administered Medications: 04:08 Drug: NS 0.9% 1000 ml Route: IV; Rate: 125 ml/hr; Site: right antecubital; rv 04:08 Drug: SOLU-Medrol 125 mg Route: IVP; Site: right antecubital; rv 04:08 Drug: Nitro-Bid Ointment 2 % 1 inches Route: Transdermal; Site: anterior chest wall; rv 04:09 Drug: Xopenex 3.75 mg Route: Inhalation; rv 04:10 Drug: AtroVENT Aerosol 0.5 mg Route: Inhalation; rv 04:10 Drug: Magnesium Sulfate 2 grams Route: IVPB; Infused Over: 2 hrs; Site: right rv antecubital; 04:11 Drug: Thiamine 100 mg Route: IV; Rate: per protocol; Site: right antecubital; rv 04:17 Drug: Ativan 1 mg Route: IVP; Site: right antecubital; rv 04:18 Drug: levofloxacin 500 mg Volume: 100 ml; Route: IVPB; Infused Over: 60 mins; Site: rv right antecubital; 04:34 Drug: morphine 2 mg {Note: rass 0.} Route: IVP; Site: right antecubital; rv 04:34 Drug: Zofran (Ondansetron) 4 mg Route: IVP; Site: right antecubital; rv 05:47 Drug: Nicotine 21 mg/24 hr 1 patches Route: Transdermal; Site: affected area; rv 05:47 Drug: Norvasc 10 mg Route: PO; rv 05:47 Drug: Aldactone 50 mg Route: PO; rv 06:19 Drug: Xopenex 2.5 mg Route: Inhalation; Outcome: 04:48 Decision to Hospitalize by Provider. [facility] 06:15 Admitted to ER Hold. Please see [facility] for further documentation. 06:15 Condition: stable 06:15 Instructed on the need for admit. 09:38 Patient left the ED. [email or web address] Signatures: Dispatcher [employer] EDMS Bg Briones MD MD cha Espinosa, [place] oe Leal, Jahala, RN RN [id number] Kb Alaniz RN RN Darrius Nayak RN RN Addy Cano cl3
--- NOTE | 2020-12-14 04:49 | EDPHYS ---
Physician Documentation [facility] Name: Randy Briones Age: 50 yrs Sex: Male : 1970 Arrival Date: 12/14/2020 Time: 03:22 Bed 7 Private MD: ED Physician Bg Briones HPI: 12/14 03:52 This 50 yrs old Male presents to ER via Ambulatory with complaints of akash Shakiness, Shortness Of Breath. 03:52 The patient has shortness of breath at rest, with light activity. Onset: The akash symptoms/episode began/occurred 2 day(s) ago. The patient's shortness of breath has no apparent modifying factors. Associated signs and symptoms: The patient has no apparent associated signs or symptoms. Severity of symptoms: At their worst the symptoms were moderate in the emergency department the symptoms are unchanged. The patient has experienced similar episodes in the past, multiple times. Historical: - Allergies: 03:50 Lisinopril; rv - PMHx: 03:50 Alcoholism; COPD; Hypertension; rv - PSHx: 03:50 None; rv - Immunization history:: Adult Immunizations up to date. - Social history:: Smoking status: Patient reports the use of cigarette tobacco products, smokes two packs cigarettes per day. - Family history:: not pertinent. ROS: 03:52 Constitutional: Negative for fever, chills, and weight loss, Eyes: Negative for injury, akash pain, redness, and discharge, ENT: Negative for injury, pain, and discharge, Neck: Negative for injury, pain, and swelling, Cardiovascular: Negative for chest pain, palpitations, and edema, Abdomen/GI: Negative for abdominal pain, nausea, vomiting, diarrhea, and constipation, Back: Negative for injury and pain, : Negative for injury, bleeding, discharge, and swelling, MS/Extremity: Negative for injury and deformity, Skin: Negative for injury, rash, and discoloration, Neuro: Negative for headache, weakness, numbness, tingling, and seizure, Psych: Negative for depression, anxiety, suicide ideation, homicidal ideation, and hallucinations, Allergy/Immunology: Negative for hives, rash, and allergies, Endocrine: Negative for neck swelling, polydipsia, polyuria, polyphagia, and marked weight changes, Hematologic/Lymphatic: Negative for swollen nodes, abnormal bleeding, and unusual bruising. 03:52 Respiratory: Positive for cough, shortness of breath, wheezing, expiratory. Exam: 03:52 Constitutional: This is a well developed, well nourished patient who is awake, alert, akash and in no acute distress. Head/Face: Normocephalic, atraumatic. Eyes: Pupils equal round and reactive to light, extra-ocular motions intact. Lids and lashes normal. Conjunctiva and sclera are non-icteric and not injected. Cornea within normal limits. Periorbital areas with no swelling, redness, or edema. ENT: Nares patent. No nasal discharge, no septal abnormalities noted. Tympanic membranes are normal and external auditory canals are clear. Oropharynx with no redness, swelling, or masses, exudates, or evidence of obstruction, uvula midline. Mucous membranes moist. Neck: Trachea midline, no thyromegaly or masses palpated, and no cervical lymphadenopathy. Supple, full range of motion without nuchal rigidity, or vertebral point tenderness. No Meningismus. Chest/axilla: Normal chest wall appearance and motion. Nontender with no deformity. No lesions are appreciated. Cardiovascular: Regular rate and rhythm with a normal S1 and S2. No gallops, murmurs, or rubs. Normal PMI, no JVD. No pulse deficits. Abdomen/GI: Soft, non-tender, with normal bowel sounds. No distension or tympany. No guarding or rebound. No evidence of tenderness throughout. Back: No spinal tenderness. No costovertebral tenderness. Full range of motion. Male : Normal genitalia with no discharge or lesions. Skin: Warm, dry with normal turgor. Normal color with no rashes, no lesions, and no evidence of cellulitis. MS/ Extremity: Pulses equal, no cyanosis. Neurovascular intact. Full, normal range of motion. Neuro: Awake and alert, GCS 15, oriented to person, place, time, and situation. Cranial nerves II-XII grossly intact. Motor strength 5/5 in all extremities. Sensory grossly intact. Cerebellar exam normal. Normal gait. Psych: Awake, alert, with orientation to person, place and time. Behavior, mood, and affect are within normal limits. 03:52 Respiratory: mild respiratory distress is noted, moderate respiratory distress is noted, Respirations: labored breathing, that is moderate, Breath sounds: bronchial sounds, decreased breath sounds, rhonchi, wheezing: inspiratory expiratory 03:59 ECG was reviewed by the Attending Physician. [facility] [place] [facility] Vital Signs: 03:47 BP 195 / 116; Pulse 96; Resp 25; Temp 98.2; Pulse Ox 97% on R/A; Weight 96.16 kg; rv Height 5 ft. 4 in. (162.56 cm); 05:30 BP 143 / 71; Pulse 89; Resp 18; Pulse Ox 91% on R/A; wh 03:47 Body Mass Index 36.39 (96.16 kg, 162.56 cm) rv MDM: 03:43 Patient medically screened. akash 03:56 Differential diagnosis: Anxiety Reaction Bronchitis Chronic Obstructive Pulmonary akash Disease pneumonia, pulmonary edema, reactive airway disease. Antibiotic administration: Levaquin given. The patient's Wells Deep Vein Thrombosis Score was calculated as follows: Total Score: 0-2 Pts- Low Risk. The patient's pulmonary embolism risk score was calculated as follows: Total Score: 0-2 points. This patient was found to be at low risk for a pulmonary embolism by using the Well's assessment criteria. Immunization status: Influenza vaccine: Data reviewed: vital signs, nurses notes, lab test result(s), EKG, radiologic studies, plain films. Data interpreted: laboratory monitor: rate is 96 beats/min, rhythm is regular, Pulse oximetry: on is 97 %. Counseling: I had a detailed discussion with the patient and/or guardian regarding: the historical points, exam findings, and any diagnostic results supporting the discharge/admit diagnosis, lab results, radiology results, the need for further work-up and treatment in the hospital. 12/14 03:50 Order name: Basic Metabolic Panel 12/14 03:50 Order name: CBC with Diff 12/14 03:50 Order name: LFT's 12/14 03:50 Order name: Magnesium 12/14 03:50 Order name: NT PRO-BNP 12/14 03:50 Order name: PT-INR 12/14 03:50 Order name: Troponin (emerg Dept Use Only) 12/14 03:50 Order name: Basic Metabolic Panel; Complete Time: 04:46 EDMS 12/14 03:50 Order name: CBC with Automated Diff; Complete Time: 04:46 EDMS 12/14 03:51 Order name: Liver (Hepatic) Function; Complete Time: 04:46 EDMS 12/14 03:51 Order name: Magnesium; Complete Time: 04:46 EDMS 12/14 03:51 Order name: NT PRO-BNP; Complete Time: 04:46 EDMS / 03:51 Order name: Protime (+INR); Complete Time: 04:46 EDMS 12/14 03:51 Order name: Troponin (Emerg Dept Use Only); Complete Time: 04:46 EDMS 12/14 03:52 Order name: XRAY Chest ([address]) [facility] [place] [facility] 12/14 03:52 Order name: Blood Culture Adult (2) [facility] 12/14 04:36 Order name: COVID-19 : Document "Date of Symptom Onset" if Symptomatic. [facility] 12/14 04:37 Order name: CORONAVIRUS EDIN 12/14 03:50 Order name: EKG; Complete Time: 03:51 12/14 03:50 Order name: Cardiac monitoring; Complete Time: 04:19 12/14 03:50 Order name: EKG - Nurse/Tech; Complete Time: 04:19 12/14 03:50 Order name: IV Saline Lock; Complete Time: 04:19 12/14 03:50 Order name: Labs collected and sent; Complete Time: 04:19 12/14 03:50 Order name: O2 Per Protocol; Complete Time: 04:19 12/14 03:50 Order name: O2 Sat Monitoring; Complete Time: 04:19 12/14 03:52 Order name: EKG; Complete Time: 03:53 [facility] 12/14 03:52 Order name: Cardiac monitoring; Complete Time: 04:07 akash 12/14 03:52 Order name: EKG - Nurse/Tech; Complete Time: 04:07 akash 12/14 03:52 Order name: IV Saline Lock; Complete Time: 04:07 akash 12/14 03:52 Order name: Labs collected and sent; Complete Time: 04:07 akash 12/14 03:52 Order name: O2 Per Protocol; Complete Time: 04:07 akash 12/14 03:52 Order name: O2 Sat Monitoring; Complete Time: 04:07 [facility] [place] EC:59 Rate is 99 beats/min. Rhythm is regular. QRS Weldon is Normal. SC interval is normal. QRS akash interval is normal. QT interval is normal. No Q waves. T waves are Normal. No ST changes noted. Clinical impression: NSR w/ Non-specific ST/T Changes and No evidence of ischemia. Interpreted by me. Reviewed by me. Administered Medications: 04:08 Drug: NS 0.9% 1000 ml Route: IV; Rate: 125 ml/hr; Site: right antecubital; rv 04:08 Drug: SOLU-Medrol 125 mg Route: IVP; Site: right antecubital; rv 04:08 Drug: Nitro-Bid Ointment 2 % 1 inches Route: Transdermal; Site: anterior chest wall; rv 04:09 Drug: Xopenex 3.75 mg Route: Inhalation; rv 04:10 Drug: AtroVENT Aerosol 0.5 mg Route: Inhalation; rv 04:10 Drug: Magnesium Sulfate 2 grams Route: IVPB; Infused Over: 2 hrs; Site: right rv antecubital; 04:11 Drug: Thiamine 100 mg Route: IV; Rate: per protocol; Site: right antecubital; rv 04:17 Drug: Ativan 1 mg Route: IVP; Site: right antecubital; rv 04:18 Drug: levofloxacin 500 mg Volume: 100 ml; Route: IVPB; Infused Over: 60 mins; Site: rv right antecubital; 04:34 Drug: morphine 2 mg {Note: rass 0.} Route: IVP; Site: right antecubital; rv 04:34 Drug: Zofran (Ondansetron) 4 mg Route: IVP; Site: right antecubital; rv 05:47 Drug: Nicotine 21 mg/24 hr 1 patches Route: Transdermal; Site: affected area; rv 05:47 Drug: Norvasc 10 mg Route: PO; rv 05:47 Drug: Aldactone 50 mg Route: PO; rv 06:19 Drug: Xopenex 2.5 mg Route: Inhalation; Disposition: 12/14/20 04:48 Hospitalization ordered by Sotero Leigh for Observation. Preliminary diagnosis are Alcohol abuse, Chronic obstructive pulmonary disease with (acute) exacerbation, Obesity, unspecified, Elevated white blood cell count, Essential (primary) hypertension. - Bed requested for [facility] ER HOLD. - Status is Observation. jl7 - Condition is Fair. - Problem is new. - Symptoms have improved. Signatures: Dispatcher [employer] EDBg Hooper MD MD cha Garcia, Cindy, RN RN Gonsalo Tidwella, RN RN [id number] Kb Alaniz RN RN Darrius Nayak RN BRIGETTE rv Corrections: (The following items were deleted from the chart) 04:14 03:51 Chest Single View+RAD.RAD.BRZ ordered. EDIN EDMS 04:25 03:53 CBC+H.LAB.BRZ ordered. EDIN EDMS 04:25 03:53 PROTIME (+INR)+COAG.LAB.BRZ ordered. EDIN EDMS 04:26 03:53 BASIC METABOLIC PANEL+C.LAB.BRZ ordered. EDMS EDMS 04:26 03:53 HEPATIC FUNCTION+C.LAB.BRZ ordered. EDIN EDMS 04:26 03:53 MAGNESIUM+C.LAB.BRZ ordered. EDIN EDMS 04: 03:53 PROBNP+C.LAB.BRZ ordered. EDIN EDMS 04:26 03:53 TROPONIN (EMERG DEPT USE ONLY)+C.LAB.BRZ ordered. EDIN EDMS 04:49 04:48 Hospitalization Ordered by Joselito Thibodeaux MD for Observation. Preliminary akash diagnosis is Alcohol abuse; Chronic obstructive pulmonary disease with (acute) exacerbation; Obesity, unspecified; Elevated white blood cell count; Essential (primary) hypertension. Bed requested for Telemetry/MedSurg (Inpatient). Status is Observation. Condition is Fair. Problem is new. Symptoms have improved. akash 05:48 04:49 12/14/2020 04:48 Hospitalization Ordered by Sotero Leigh DO for Observation. Preliminary diagnosis is Alcohol abuse; Chronic obstructive pulmonary disease with (acute) exacerbation; Obesity, unspecified; Elevated white blood cell count; Essential (primary) hypertension. Bed requested for Telemetry/MedSurg (Inpatient). Status is Observation. Condition is Fair. Problem is new. Symptoms have improved. akash 09:38 05:48 12/14/2020 04:48 Hospitalization Ordered by Sotero Leigh DO for Observation. jl7 Preliminary diagnosis is Alcohol abuse; Chronic obstructive pulmonary disease with (acute) exacerbation; Obesity, unspecified; Elevated white blood cell count; Essential (primary) hypertension. Bed requested for [facility] ER HOLD. Status is Observation. Condition is Fair. Problem is new. Symptoms have improved.
--- NOTE | 2020-12-14 05:14 | P.HP ---
Certification for Inpatient Patient admitted to: Observation With expected LOS: <2 Midnights Patient will require the following post-hospital care: None Practitioner: I am a practitioner with admitting privileges, knowledge of patient current condition, hospital course, and medical plan of care. Services: Services provided to patient in accordance with Admission requirements found in Title 42 Section 412.3 of the Code of Federal Regulations <[email or web address] - Last Filed: 12/14/20 05:10> Patient admitted to: Observation <Sotero Leigh - Last Filed: 12/14/20 09:18> Patient History Date of Service: 12/14/20 Primary Care Provider: Dr. Michaels, Dr. Martinez Reason for admission: COPD exacerbation History of Present Illness: 50-year-old male with history of COPD on chronic oral steroid therapy, hypertension, alcohol abuse presents emergency department for shortness of breath. Patient reports 2-3 week history of increasing shortness of breath, recently and had CT chest abdomen pelvis which was negative for pulmonary embolism/pneumonia, patient on prednisone 40 mg twice daily at this time without improvement. Patient also reports that he is drinking approximately 12-13 beers per day with this last beverage being in approximately 1900 last night. Patient saturations were in the mid 80 on room air at home. Patient was evaluated in the emergency department white blood cell count 13.2 with some left shift. Chest x-ray unremarkable. Patient very tight upon auscultation with expiratory wheezing, satting in the low 90s on room air. Patient also tachycardic and hypertensive, this is likely related to the combination of his COPD exacerbation and alcohol withdrawals. ED provider wishes to admit patient for further evaluation and management. 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 - Family History Mother -: Diabetes, Cancer Notes: colon cancer Father -: Lung disease Notes: COPD - Social History Smoking Status: Current some day smoker Alcohol use: No CD- Drugs: No Caffeine use: Yes Place of Residence: Home <[email or web address] - Last Filed: 12/14/20 05:10> Date of Service: 12/14/20 <Sotero Leigh - Last Filed: 12/14/20 09:18> Allergies BC powder Allergy (Uncoded 02/18/19 20:46) Hives Lisinopril Adverse Reaction (Mild, Uncoded 02/11/18 13:05) Shortness of breath Home Medications: Thiamine Mononitrate (Vit B1) [Vitamin B-1] 1 tab PO BID 07/19/18 Tiotropium [place] [Spiriva] 18 mcg IH DAILY #30 cap.w.dev 10/20/18 Folic Acid 1 mg PO DAILY #30 tablet 11/15/18 LORazepam [Lorazepam] 1 tab PO BEDTIME PRN 02/12/19 Esomeprazole Mag Trihydrate [Nexium] 1 tab PO DAILY 02/13/19 Albuterol Neb [Proventil 0.083% Neb Soln] 3 ml NEB TID PRN #90 amp 02/21/19 Amlodipine [Norvasc*] 5 mg PO BEDTIME #30 tab 02/21/19 Arformoterol Tartrate [Brovana] 15 mcg NEB BIDRESP #60 vial.neb 02/21/19 Benzonatate [Tessalon Perle*] 100 mg PO TID PRN #30 cap 02/21/19 Ipratropium Neb [Atrovent*] 2.5 ml NEB TID PRN #90 amp 02/21/19 Nicotine [Nicoderm*] 21 mg TD DAILY #30 patch.td24 02/21/19 predniSONE [Deltasone*] 10 mg PO BID #40 tab 02/21/19 Review of Systems 10-point ROS is otherwise unremarkable Respiratory: Cough, Shortness of Breath, SOB with Excertion, Pleuritic Pain <Jairo Agarwal - Last Filed: 12/14/20 05:10> Physical Examination - Physical Exam General: Alert, In no apparent distress, Oriented x3, Other (Tremulous) HEENT: Atraumatic, PERRLA, Mucous membr. moist/pink Neck: Supple, 2+ carotid pulse no bruit, No LAD Respiratory: Clear to auscultation bilaterally, Normal air movement Cardiovascular: Regular rate/rhythm (Sinus tachycardia rate 110), Normal S1 S2 Capillary refill: <2 Seconds Gastrointestinal: Normal bowel sounds, No tenderness Musculoskeletal: No contractures, No erythema, No tenderness Integumentary: No rashes, No tenderness/swelling, No erythema Neurological: Normal speech, Normal strength at 5/5 x4 extr, Normal tone, Normal affect - Studies Laboratory Data (last 24 hrs) 12/14/20 04:00: PT 9.2 L, INR 0.80 12/14/20 04:00: WBC 13.20 H, Hgb 15.8, Hct 47.2, Plt Count 308 12/14/20 04:00: Sodium 139, Potassium 4.2, BUN 10, Creatinine 0.85, Glucose 103, Magnesium 2.4, Total Bilirubin 0.4, AST 38 H, ALT 37, Alkaline Phosphatase 69 12/14/20 03:52: PT Cancelled, INR Cancelled 12/14/20 03:52: WBC Cancelled, Hgb Cancelled, Hct Cancelled, Plt Count Cancelled 12/14/20 03:52: Sodium Cancelled, Potassium Cancelled, BUN Cancelled, Creatinine Cancelled, Glucose Cancelled, Magnesium Cancelled, Total Bilirubin Cancelled, AST Cancelled, ALT Cancelled, Alkaline Phosphatase Cancelled <Jairo Agarwal - Last Filed: 12/14/20 05:10> - Studies Laboratory Data (last 24 hrs) 12/14/20 04:00: PT 9.2 L, INR 0.80 12/14/20 04:00: WBC 13.20 H, Hgb 15.8, Hct 47.2, Plt Count 308 12/14/20 04:00: Sodium 139, Potassium 4.2, BUN 10, Creatinine 0.85, Glucose 103, Magnesium 2.4, Total Bilirubin 0.4, AST 38 H, ALT 37, Alkaline Phosphatase 69 12/14/20 03:52: PT Cancelled, INR Cancelled 12/14/20 03:52: WBC Cancelled, Hgb Cancelled, Hct Cancelled, Plt Count Cancelled 12/14/20 03:52: Sodium Cancelled, Potassium Cancelled, BUN Cancelled, Creatinine Cancelled, Glucose Cancelled, Magnesium Cancelled, Total Bilirubin Cancelled, AST Cancelled, ALT Cancelled, Alkaline Phosphatase Cancelled <Sotero Leigh - Last Filed: 12/14/20 09:18> Assessment and Plan - Plan Assessment COPD exacerbation-on chronic steroid therapy Alcohol abuse Hypertension Plan COPD exacerbation-on chronic steroid therapy: Scheduled nebs, IV steroids, Levaquin. Pulmonology consult in place, titrate saturations greater than 93% on room air. DVT prophylaxis Lovenox 40 mg subcutaneous once daily. Add Dulera inhaler, restart home medications once verified. Appreciate further input from pulmonology. Alcohol abuse: The string 1900 last night, drinking approximately 12-13 beers per day. Continue scheduled Librium, p.r.n. Ativan, alcohol withdrawal scoring. Hypertension: Continue spironolactone, add Norvasc. Discharge Plan: Home Plan to discharge in: 24 Hours - Advance Directives Does patient have a Living Will: No Does patient have a Durable POA for Healthcare: No - Code Status/Comfort Care Code Status Assessed: Yes (Full code) Critical Care: No Time Spent Managing Pts Care (In Minutes): 55 <Jairo Agarwal - Last Filed: 12/14/20 05:10> - Plan Case discussed with nurse practitioner. Agree with plan of care. See discharge order for details. <Sotero Leigh - Last Filed: 12/14/20 09:18>
[2020-12-14] MEDS ORDERED: NICOTINE 21 MG/PAT TD ONE (05:58)
[2020-12-14] MEDS ORDERED: AMLODIPINE 10 MG TAB ONE (05:58)
[2020-12-14] MEDS ORDERED: SPIRONOLACTONE 25 MG TABLET ONE (06:02)
[2020-12-14] MEDS ORDERED: ONDANSETRON 4 MG/2 ML VIAL IV PRN (07:33)
[2020-12-14] MEDS ORDERED: chlordiazePOXIDE HCl 25 MG CAP PO SCH (07:33)
[2020-12-14] MEDS ORDERED: ACETAMINOPHEN 500 MG TAB PO PRN (07:33)
[2020-12-14] MEDS ORDERED: LORazepam 2 MG/ML VIAL IV PRN (07:33)
[2020-12-14] MEDS ORDERED: MORPHINE 2 MG/ML SYR IV PRN (07:33)
[2020-12-14] MEDS ORDERED: IPRATROPIUM BROM 0.5MG/2.5ML NEB SCH (08:00)
[2020-12-14] MEDS ORDERED: ALBUTEROL 2.5 MG/3 ML NEB SOL NEB SCH (08:00)
[2020-12-14] MEDS ORDERED: DULERA 100/5 (MOMETASONE/FORMOTEROL) INHALER IH SCH (09:00)
[2020-12-14] MEDS ORDERED: METHYLPREDNISOLONE 125 MG INJ IV SCH (09:00)
[2020-12-14] MEDS ORDERED: ENOXAPARIN 40 MG/0.4 ML SQ SCH (09:00)
--- NOTE | 2020-12-14 09:09 | RAD REPORT ---
EXAM DESCRIPTION: RAD - Chest Single View - 12/14/2020 4:22 am CLINICAL HISTORY: Cough;COPD, left-sided chest pain COMPARISON: Portable June 2001 TECHNIQUE: AP portable chest image was obtained 12/14/2020 4:22 am . FINDINGS: Lungs are clear. Heart and vasculature are normal. No measurable pleural effusion and no p neumothorax. No acute bony abnormality seen. No acute aortic findings suspected. IMPRESSION: No acute cardiopulmonary process. No significant change from comparison study.
--- NOTE | 2020-12-14 09:17 | P.DS ---
Admission Date: 12/14/20 Discharge Date: 12/14/20 Primary Care Provider: Dr. Michaels, Pulmonary-Dr. Martinez Disposition: ROUTINE DISCHARGE Discharge Condition: GOOD Reason for Admission: COPD exacerbation Consultations: none Procedures: Medical Problem List: COPD exacerbation with moderate to severe COPD on chronic steroids Alcohol abuse Hypertension GERD Obesity Brief History of Present Illness: 50-year-old male with history of COPD on chronic oral steroid therapy, hypertension, alcohol abuse presents emergency department for shortness of breath. Patient reports 2-3 week history of increasing shortness of breath, recently and had CT chest abdomen pelvis which was negative for pulmonary embolism/pneumonia. Patient was having increased shortness of breath. He had contacted pulmonology. Pulmonology had sent a prescription for increase prednisone. 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 Patient also reports that he is drinking approximately 12-13 beers per day with this last beverage being in approximately 1900 last night. Patient saturations were in the mid 80 on room air at home. Patient was evaluated in the emergency department white blood cell count 13.2 with some left shift. Chest x-ray unremarkable. Patient was admitted for further evaluation and treatment. Hospital Course: Patient presented with COPD exacerbation. Patient with moderate COPD on chronic steroids. Patient was treated in the emergency room. His condition improved with IV steroids. Patient had spoken to pulmonology recently. A prescription for increase prednisone had been sent to the pharmacy. Patient doing better at this time. Patient desires to go home. Patient on room-air with normal saturations. At discharge patient will continue with prednisone 40 mg daily for the next 7 days then decrease to prednisone 20 mg daily. At discharge he will c ontinue with his other COPD medications including Brovana 1 unit dose twice daily, Spiriva 1 puff daily, albuterol/Atrovent 1 unit dose 3 times a day as needed for shortness of breath. Recommend follow up with pulmonology within 1 week. Compliance with medication addressed in detail. Patient with hypertension. At discharge patient will continue with his medication of Norvasc 5 mg daily. Recommend to maintain his blood pressure less than 130/80. May need to increase blood pressure medication if blood pressure consistently above 140/90. This can be done with the help of his PCP or pulmono logy. Patient with alcohol abuse. Alcohol level was elevated. Patient reports drinking 12 beers per day. Recommend to taper off alcohol. Patient uses lorazepam 2 mg at bedtime. Alcohol cessation education provided. Recommend AA for counseling. Patient will continue with thiamine 100 mg daily and folic acid 1 mg daily. Recommend follow up with PCP to further monitor and address. Patient with GERD. At discharge patient will continue with Nexium 40 mg daily. General: Alert, In no apparent distress, Oriented x3, Cooperative HEENT: Atraumatic Neck: Supple Respiratory: Clear to auscultation bilaterally, Normal air movement Cardiovascular: Abnormal pulses (Mild tachycardia) Gastrointestinal: Normal bowel sounds, No tenderness, No masses, No rebound, No guarding Neurological: Normal speech, Normal strength at 5/5 x4 extr, Normal tone, Normal affect Laboratory Data at Discharge: WBC 13.20 K/uL (4.3-10.9) H 12/14/20 04:00 Hgb 15.8 g/dL (13.6-17.9) 12/14/20 04:00 Hct 47.2 % (39.6-49.0) 12/14/20 04:00 Plt Count 308 K/uL (152-406) 12/14/20 04:00 PT 9.2 SECONDS (9.5-12.5) L 12/14/20 04:00 INR 0.80 12/14/20 04:00 Sodium 139 mmol/L (136-145) 12/14/20 04:00 Potassium 4.2 mmol/L (3.5-5.1) 12/14/20 04:00 BUN 10 mg/dL (7-18) 12/14/20 04:00 Creatinine 0.85 mg/dL (0.55-1.3) 12/14/20 04:00 Glucose 103 mg/dL (74-106) 12/14/20 04:00 Magnesium 2.4 mg/dL (1.8-2.4) 12/14/20 04:00 Total Bilirubin 0.4 mg/dL (0.2-1.0) 12/14/20 04:00 AST 38 U/L (15-37) H 12/14/20 04:00 ALT 37 U/L (12-78) 12/14/20 04:00 Alkaline Phosphatase 69 U/L (45-117) 12/14/20 04:00 Home Medications: Thiamine Mononitrate (Vit B1) [Vitamin B-1] 1 tab PO BID 07/19/18 Tiotropium [place] [Spiriva] 18 mcg IH DAILY #30 cap.w.dev 10/20/18 Folic Acid 1 mg PO DAILY #30 tablet 11/15/18 LORazepam [Lorazepam] 1 tab PO BEDTIME PRN 02/12/19 Esomeprazole Mag Trihydrate [Nexium] 1 tab PO DAILY 02/13/19 Albuterol Neb [Proventil 0.083% Neb Soln] 3 ml NEB TID PRN #90 amp 02/21/19 Amlodipine [Norvasc*] 5 mg PO BEDTIME #30 tab 02/21/19 Arformoterol Tartrate [Brovana] 15 mcg NEB BIDRESP #60 vial.neb 02/21/19 Benzonatate [Tessalon Perle*] 100 mg PO TID PRN #30 cap 02/21/19 Ipratropium Neb [Atrovent*] 2.5 ml NEB TID PRN #90 amp 02/21/19 Nicotine [Nicoderm*] 21 mg TD DAILY #30 patch.td24 02/21/19 predniSONE [Deltasone*] 10 mg PO BID #40 tab 02/21/19 Physician Discharge Instructions: Follow up with PCP in 1 week. Patient presented with COPD exacerbation. Patient with moderate COPD on chronic steroids. Patient was treated in the emergency room. His condition improved with IV steroids. Patient had spoken to pulmonology recently. A prescription for increase prednisone had been sent to the pharmacy. Patient doing better at this time. Patient desires to go home. Patient on room-air with normal saturations. At discharge patient will continue with prednisone 40 mg daily for the next 7 days then decrease to prednisone 20 mg daily. At discharge he will continue with his other COPD medications including Brovana 1 unit dose twice daily, Spiriva 1 puff daily, albuterol/Atrovent 1 unit dose 3 times a day as needed for shortness of breath. Recommend follow up with pulmonology within 1 week. Compliance with medication addressed in detail. Patient with hypertension. At discharge patient will continue with his medication of Norvasc 5 mg daily. Recommend to maintain his blood pressure less than 130/80. May need to increase blood pressure medication if blood pressure consistently above 140/90. This can be done with the help of his PCP or pulmonology. Patient with alcohol abuse. Alcohol level was elevated. Patient reports drinking 12 beers per day. Recommend to taper off alcohol. Patient uses lorazepam 2 mg at bedtime. Alcohol cessation education provided. Recommend AA for counseling. Patient will continue with thiamine 100 mg daily and folic acid 1 mg daily. Recommend follow up with PCP to further monitor and address. Patient with GERD. At discharge patient will continue with Nexium 40 mg daily. Diet: AHA Activity: Ad lenin Followup: Adrianna Michaels DO, DO [Primary Care Provider] - Time spent managing pt's care (in minutes): 55
[2020-12-14] MEDS ORDERED: ALBUTEROL 2.5 MG/3 ML NEB SOL ONE (09:22)
[2020-12-14 09:42] VITALS: TEMP 98.2
[2020-12-14 09:43] VITALS: BP 143/71; O2SAT 91
[2020-12-15] MEDS ORDERED: Levofloxacin500mg IV 500 MG/100 ML BAG IV SCH (05:00)
[2020-12-15] MEDS ORDERED: SPIRONOLACTONE 25 MG TABLET PO SCH (09:00)
[2020-12-15] MEDS ORDERED: AMLODIPINE 10 MG TAB PO SCH (09:00)
== END 2020-12-14 09:26 | disposition home or self-care (01) ==
LOC: ER 03:21 → ERHOLD 05:11
PROVIDERS: ADMIT Family Medicine; ATTEND Family Medicine
DX: J44.1 Chronic obstructive pulmonary disease with (acute) exacerbation (principal); I10 Essential (primary) hypertension; F10.10 Alcohol abuse, uncomplicated; K21.9 Gastro-esophageal reflux disease without esophagitis; D72.829 Elevated white blood cell count, unspecified; E66.9 Obesity, unspecified; Z68.36 Body mass index [BMI] 36.0-36.9, adult; F17.210 Nicotine dependence, cigarettes, uncomplicated; Z79.52 Long term (current) use of systemic steroids; Z71.41 Alcohol abuse counseling and surveillance of alcoholic; Z83.6 Family history of other diseases of the respiratory system; Z83.3 Family history of diabetes mellitus; Z80.0 Family history of malignant neoplasm of digestive organs
CPT/HCPCS: 93005; 87040 ×2; 85025; 80048; 36415; 83735; 85610; 80076; 84484; 83880; 71045; 96375; 96374; 99285; J3411; J2270; J3475; J7030; J2930; J2405; G0378 ×2; J7606

== ENCOUNTER 2021-01-03 06:25 | Observation (INO) | payer BC ==
--- OUTSIDE RECORDS SUMMARY | 2021-01-03 06:28 | XMS REPORT | Continuity of Care Document ---
:1970 Author Organization [facility] t Address [address] [place] [address] Dr. Zhou [address] [place] [id number] Care Team Providers Name Role Phone Unavailable Unavailable Unavailable Problems This patient has no known problems. Allergies, Adverse Reactions, Alerts This patient has no known allergies or adverse reactions. Medications This patient has no known medications. Procedures This patient has no known procedures. Results This patient has no known results.
--- NOTE | 2021-01-03 07:11 | EDPHYS ---
Physician Documentation [facility] Name: Randy Briones Age: 50 yrs Sex: Male : 1970 Arrival Date: 01/03/2021 Time: 06:28 Bed 18 Private MD: ED Physician Bg Briones HPI: 01/03 07:00 This 50 yrs old Male presents to ER via Ambulatory with complaints of Fever, akash Cough. Historical: - Allergies: 06:41 Lisinopril; ea - Home Meds: 06:41 albuterol sulfate 2.5 mg /3 mL (0.083 %) Inhl nebu 3 mL 3 times per day [Active]; ea - PMHx: 06:41 COPD; Hypertension; Alcoholism; ea - PSHx: 06:41 None; ea - Immunization history:: Adult Immunizations up to date. - Social history:: Smoking status: Patient reports the use of cigarette tobacco products. ROS: 07:01 Constitutional: Negative for fever, chills, and weight loss, Eyes: Negative for injury, akash pain, redness, and discharge, ENT: Negative for injury, pain, and discharge, Neck: Negative for injury, pain, and swelling, Abdomen/GI: Negative for abdominal pain, nausea, vomiting, diarrhea, and constipation, Back: Negative for injury and pain, : Negative for injury, bleeding, discharge, and swelling, MS/Extremity: Negative for injury and deformity, Skin: Negative for injury, rash, and discoloration, Neuro: Negative for headache, weakness, numbness, tingling, and seizure, Psych: Negative for depression, anxiety, suicide ideation, homicidal ideation, and hallucinations, Allergy/Immunology: Negative for hives, rash, and allergies, Endocrine: Negative for neck swelling, polydipsia, polyuria, polyphagia, and marked weight changes, Hematologic/Lymphatic: Negative for swollen nodes, abnormal bleeding, and unusual bruising. 07:01 Cardiovascular: Positive for palpitations. 07:01 Respiratory: Positive for cough, dyspnea on exertion, shortness of breath, wheezing, inspiratory, expiratory. 07:01 MS/extremity: Negative for acute changes. Exam: 07:01 Constitutional: This is a well developed, well nourished patient who is awake, alert, akash and in no acute distress. Head/Face: Normocephalic, atraumatic. Eyes: Pupils equal round and reactive to light, extra-ocular motions intact. Lids and lashes normal. Conjunctiva and sclera are non-icteric and not injected. Cornea within normal limits. Periorbital areas with no swelling, redness, or edema. ENT: Nares patent. No nasal discharge, no septal abnormalities noted. Tympanic membranes are normal and external auditory canals are clear. Oropharynx with no redness, swelling, or masses, exudates, or evidence of obstruction, uvula midline. Mucous membranes moist. Neck: Trachea midline, no thyromegaly or masses palpated, and no cervical lymphadenopathy. Supple, full range of motion without nuchal rigidity, or vertebral point tenderness. No Meningismus. Chest/axilla: Normal chest wall appearance and motion. Nontender with no deformity. No lesions are appreciated. Abdomen/GI: Soft, non-tender, with normal bowel sounds. No distension or tympany. No guarding or rebound. No evidence of tenderness throughout. Back: No spinal tenderness. No costovertebral tenderness. Full range of motion. Male : Normal genitalia with no discharge or lesions. Skin: Warm, dry with normal turgor. Normal color with no rashes, no lesions, and no evidence of cellulitis. 07:01 Cardiovascular: Rate: tachycardic, actual rate is 120 bpm, Rhythm: regular, Heart sounds: normal, Edema: is not appreciated, JVD: is not appreciated. 07:01 ECG was reviewed by the Attending Physician. Vital Signs: 06:37 BP 129 / 100; Pulse 120; Resp 22; Temp 97.6; Pulse Ox 99% on R/A; Weight 96.16 kg; ea Height 5 ft. 4 in. (162.56 cm); 07:30 BP 120 / 99; Pulse 113; Resp 16; Pulse Ox 97% ; rb3 08:20 BP 159 / 97; Pulse 104; Resp 15; Pulse Ox 99% on 10% Nebulizer Mask; Pain 10/10; rb3 09:20 BP 148 / 80; Pulse 118; Resp 15; Pulse Ox 97% on 2 lpm NC; rb3 10:20 BP 137 / 74; Pulse 106; Resp 16; Pulse Ox 96% on 2 lpm NC; rb3 11:19 BP 158 / 86; Pulse 106; Resp 17; Pulse Ox 95% ; rb3 12:18 BP 159 / 98; Pulse 107; Resp 17; Pulse Ox 99% ; rb3 13:15 BP 158 / 84; Pulse 105; Resp 16; Pulse Ox 94% on 2 lpm NC; rb3 06:37 Body Mass Index 36.39 (96.16 kg, 162.56 cm) ea MDM: 06:33 Patient medically screened. [facility] 07:06 Differential diagnosis: viral Infection, bacterial infection, URI, bronchitis, akash pneumonia. Data reviewed: vital signs, nurses notes, lab test result(s), EKG, radiologic studies, plain films. Data interpreted: classroom monitor: rate is 120 beats/min, rhythm is regular, Pulse oximetry: on room air is 99 %. Test interpretation: by ED physician or midlevel provider: ECG, plain radiologic studies. Counseling: I had a detailed discussion with the patient and/or guardian regarding: the historical points, exam findings, and any diagnostic results supporting the discharge/admit diagnosis, the presence of at least one elevated blood pressure reading (>120/80) during this emergency department visit, lab results, radiology results, the need for further work-up and treatment in the hospital. 01/03 06:59 Order name: Basic Metabolic Panel [facility] 01/03 06:59 Order name: CBC with Diff [facility] 01/03 06:59 Order name: LFT's [facility] 01/03 06:59 Order name: Magnesium; Complete Time: 11:27 [facility] 01/03 06:59 Order name: NT PRO-BNP; Complete Time: 11:27 [facility] 01/03 06:59 Order name: PT-INR; Complete Time: 11:27 [facility] 01/03 06:59 Order name: Troponin (emerg Dept Use Only); Complete Time: 11:27 [facility] 01/03 06:59 Order name: Lipase; Complete Time: 11:27 [facility] 01/03 07:00 Order name: Basic Metabolic Panel; Complete Time: 11:27 [facility] 01/03 07:00 Order name: CBC with Automated Diff; Complete Time: 11:27 [facility] 01/03 07:00 Order name: Liver (Hepatic) Function; Complete Time: 11:27 [facility] 01/03 07:01 Order name: Blood Culture Adult (2) [facility] 01/03 07:14 Order name: Alcohol Level; Complete Time: 11: [facility] 01/03 06:59 Order name: XRAY Chest (1 view); Complete Time: 11:27 [facility] 01/03 09:45 Order name: COVID-19 : Document "Date of Symptom Onset" if Symptomatic. em1 01/03 10:22 Order name: [facility] 01/03 11:01 Order name: SARS-COV-2 RT PCR; Complete Time: 11:27 [facility] 01/03 06:59 Order name: EKG; Complete Time: 07:00 [facility] 01/03 06:59 Order name: Cardiac monitoring; Complete Time: 08:16 [facility] 01/03 06:59 Order name: EKG - Nurse/Tech; Complete Time: 10:58 [facility] 01/03 06:59 Order name: IV Saline Lock; Complete Time: 08:16 [facility] 01/03 06:59 Order name: Labs collected and sent; Complete Time: 08:16 [facility] 01/03 06:59 Order name: O2 Per Protocol; Complete Time: 08:16 [facility] 01/03 06:59 Order name: O2 Sat Monitoring; Complete Time: 08:17 [facility] 01/03 07:11 Order name: IV Saline Lock - Large Bore; Complete Time: 08:13 [facility] EC:01 Rate is 118 beats/min. Rhythm is regular. QRS [place] is Normal. [place] interval is normal. [facility] QRS interval is normal. QT interval is normal. No Q waves. T waves are Normal. No ST changes noted. Clinical impression: Sinus tachycardia. Interpreted by me. Reviewed by me. Administered Medications: 07:35 Drug: Pepcid 20 mg Route: IVP; Site: right antecubital; rb3 07:50 Follow up: Response: No adverse reaction rb3 07:35 Drug: SOLU-Medrol 125 mg Route: IVP; Site: right antecubital; rb3 07:50 Follow up: Response: No adverse reaction rb3 07:35 Drug: Xopenex 3.75 mg Route: Inhalation; rb3 07:35 Drug: AtroVENT Aerosol 0.5 mg Route: Inhalation; rb3 07:35 Drug: Thiamine 100 mg Route: IV; Rate: bolus; Site: right antecubital; rb3 07:50 Follow up: Response: No adverse reaction rb3 07:50 Follow up: IV Status: Completed infusion rb3 07:35 Drug: Ativan 1 mg Route: IVP; Site: right antecubital; rb3 07:50 Follow up: Response: No adverse reaction rb3 07:35 Drug: levofloxacin 500 mg Volume: 100 ml; Route: IVPB; Infused Over: 60 mins; Site: rb3 right antecubital; 08:43 Follow up: Response: No adverse reaction; IV Status: Completed infusion rb3 08:07 Drug: NS 0.9% 500 ml Route: IV; Rate: bolus; Site: left antecubital; rb3 08:48 Follow up: IV Status: Completed infusion rb3 08:48 Drug: Banana Bag - (NS 0.9% 1000 ml, foLIC Acid 1 mg, Thiamine 100 mg, Multivitamin 1 rb3 amp) Route: IV; Rate: 150 ml/hr; Site: right antecubital; 09:06 Drug: Magnesium Sulfate 2 grams Route: IVPB; Infused Over: 2 hrs; Site: right rb3 antecubital; 10:58 Follow up: Response: No adverse reaction; IV Status: Completed infusion rb3 09:07 Drug: Zofran (Ondansetron) 4 mg Route: IVP; Site: right antecubital; rb3 09:23 Follow up: Response: No adverse reaction rb3 10:19 Drug: Ativan 1 mg Route: IVP; Site: right antecubital; rb3 10:35 Follow up: Response: No adverse reaction rb3 Disposition: 01/03/21 07:11 Hospitalization ordered by Rood Donovan for Inpatient Admission. Preliminary diagnosis are Chronic obstructive pulmonary disease with (acute) exacerbation, Tobacco abuse counseling, Alcohol abuse, Alcohol abuse with intoxication delirium. - Bed requested for Telemetry/MedSurg (Inpatient). - Status is Inpatient Admission. aa5 - Condition is Stable. - Problem is new. - Symptoms have improved. Signatures: Dispatcher [employer] EDMS Barb Haas RN RN dm5 Woody, Diana RN Bg Verde MD MD cha Rittger, Kevin, MD MD kdr Calderon, Audri, RN RN aa5 Antunez, Elena, RN RN ea Barber, Rebecca, RN RN rb3 Corrections: (The following items were deleted from the chart) 10:35 07:11 Hospitalization Ordered by Rodo Donovan for Inpatient Admission. Preliminary dm5 diagnosis is Chronic obstructive pulmonary disease with (acute) exacerbation; Tobacco abuse counseling; Alcohol abuse; Alcohol abuse with intoxication delirium. Bed requested for Telemetry/MedSurg (observation). Status is Inpatient Admission. Condition is Stable. Problem is new. Symptoms have improved. akash 12:11 10:35 01/03/2021 07:11 Hospitalization Ordered by Rodo Donovan for Inpatient dw Admission. Preliminary diagnosis is Chronic obstructive pulmonary disease with (acute) exacerbation; Tobacco abuse counseling; Alcohol abuse; Alcohol abuse with intoxication delirium. Bed requested for [facility] ER HOLD. Status is Inpatient Admission. Condition is Stable. Problem is new. Symptoms have improved. dm5 13:45 12:11 01/03/2021 07:11 Hospitalization Ordered by Rodo Donovan for Inpatient aa5 Admission. Preliminary diagnosis is Chronic obstructive pulmonary disease with (acute) exacerbation; Tobacco abuse counseling; Alcohol abuse; Alcohol abuse with intoxication delirium. Bed requested for Telemetry/MedSurg (Inpatient). Status is Inpatient Admission. Condition is Stable. Problem is new. Symptoms have improved. dw
--- NOTE | 2021-01-03 07:11 | ER ---
Nurse's Notes [facility] Name: Randy Briones Age: 50 yrs Sex: Male : 1970 Arrival Date: 01/03/2021 Time: 06:28 Bed 18 Private MD: Diagnosis: Chronic obstructive pulmonary disease with (acute) exacerbation;Tobacco abuse counseling;Alcohol abuse;Alcohol abuse with intoxication delirium Presentation: 01/03 06:37 Chief complaint: Patient states: Reports he has been on a drinking binge for the past 6 ea weeks, reports last drink was at 2 am. States "I think this is happening because of the drinking". Coronavirus screen: At this time, the client does not indicate any symptoms associated with coronavirus-19. Ebola Screen: No symptoms or risks identified at this time. Initial Sepsis Screen: Does the patient meet any 2 criteria? No. Patient's initial sepsis screen is negative. Does the patient have a suspected source of infection? No. Patient's initial sepsis screen is negative. Risk Assessment: Do you want to hurt yourself or someone else? Patient reports no desire to harm self or others. Onset of symptoms was January 03, 2021. 06:37 Method Of Arrival: Ambulatory ea 06:37 Acuity: CANDACE 3 ea Historical: - Allergies: 06:41 Lisinopril; ea - Home Meds: 06:41 albuterol sulfate 2.5 mg /3 mL (0.083 %) Inhl nebu 3 mL 3 times per day [Active]; ea - PMHx: 06:41 COPD; Hypertension; Alcoholism; ea - PSHx: 06:41 None; ea - Immunization history:: Adult Immunizations up to date. - Social history:: Smoking status: Patient reports the use of cigarette tobacco products. Screenin:40 Abuse screen: Denies threats or abuse. Nutritional screening: No deficits noted. ea Tuberculosis screening: No symptoms or risk factors identified. Fall Risk None identified. Assessment: 06:48 Reassessment: Alanna Anselmo [phone]. ea 07:05 General: Appears uncomfortable, Behavior is calm, cooperative, Denies fever. Pain: rb3 Complains of pain in left upper quadrant and left lower quadrant Pain currently is 10 out of 10 on a pain scale. Neuro: Level of Consciousness is awake, alert, obeys commands, Oriented to person, place, time, situation. Cardiovascular: Patient's skin is warm and dry. Respiratory: Airway is patent Respiratory effort is even, unlabored, Respiratory pattern is regular, symmetrical. Respiratory: Reports shortness of breath due to COPD. GI: No deficits noted. : No deficits noted. 08:00 Reassessment: Patient appears in no apparent distress at this time. Patient and/or rb3 family updated on plan of care and expected duration. Pain level reassessed. Patient is alert, oriented x 3, equal unlabored respirations, skin warm/dry/pink. 08:48 Reassessment: Pt. is actively vomiting. rb3 08:55 Reassessment: Called Dr. Donovan, requested medication for nausea and vomiting. Received rb3 telephone order for Zofran 4 mg IVP x once. 100 % telephone read back. 09:00 Reassessment: Patient appears in no apparent distress at this time. Patient and/or rb3 family updated on plan of care and expected duration. Pain level reassessed. 10:00 Reassessment: Pt. is diaphoretic and is starting to get tremors, was given a wet rb3 washcloth. 11:00 Reassessment: Patient appears in no apparent distress at this time. Pt. is resting with rb3 eyes closed, respirations even, unlabored. 12:00 Reassessment: Patient appears in no apparent distress at this time. Patient and/or rb3 family updated on plan of care and expected duration. Pain level reassessed. Patient is alert, oriented x 3, equal unlabored respirations, skin warm/dry/pink. Pt. is diaphoretic. 12:45 Reassessment: Unable to give report at this time, nurse is in a pt. room. rb3 13:00 Reassessment: Patient appears in no apparent distress at this time. No changes from rb3 previously documented assessment. 13:05 Reassessment: Gave report to BRIGETTE REGALADO. Information from the SBAR was given. All questions rb3 asked and answered. 13:30 Reassessment: Called second floor and spoke with Carry, she took a message for BRIGETET REGALADO. rb3 I told her to let BRIGETTE REGALADO know that I had administered Ativan 1 mg IVP x 1 before the pt. went to the floor. Vital Signs: 06:37 BP 129 / 100; Pulse 120; Resp 22; Temp 97.6; Pulse Ox 99% on R/A; Weight 96.16 kg; ea Height 5 ft. 4 in. (162.56 cm); 07:30 BP 120 / 99; Pulse 113; Resp 16; Pulse Ox 97% ; rb3 08:20 BP 159 / 97; Pulse 104; Resp 15; Pulse Ox 99% on 10% Nebulizer Mask; Pain 10/10; rb3 09:20 BP 148 / 80; Pulse 118; Resp 15; Pulse Ox 97% on 2 lpm NC; rb3 10:20 BP 137 / 74; Pulse 106; Resp 16; Pulse Ox 96% on 2 lpm NC; rb3 11:19 BP 158 / 86; Pulse 106; Resp 17; Pulse Ox 95% ; rb3 12:18 BP 159 / 98; Pulse 107; Resp 17; Pulse Ox 99% ; rb3 13:15 BP 158 / 84; Pulse 105; Resp 16; Pulse Ox 94% on 2 lpm NC; rb3 06:37 Body Mass Index 36.39 (96.16 kg, 162.56 cm) ea ED Course: 06:28 Patient arrived in ED. ag3 06:33 Bg Briones MD is Attending Physician. akash 06:39 Triage completed. ea 06:40 Patient has correct armband on for positive identification. Bed in low position. Call ea light in reach. Side rails up X 1. 06:42 Arm band placed on right wrist. Patient placed in an exam room, on a stretcher, on ea pulse oximetry. 07:09 Rodo Donovan is Hospitalizing Provider. akash 07:12 Sherin Perez, RN is Primary Nurse. rb3 07:22 XRAY Chest (1 view) In Process Unspecified. EDMS 07:30 Missed attempt(s): 20 gauge in right forearm. Bleeding controlled, band aid applied, rb3 catheter tip intact. 07:33 Inserted saline lock: 20 gauge in right antecubital area, using aseptic technique. rb3 Blood collected. 08:06 Inserted saline lock: 20 gauge in left antecubital area, using aseptic technique. Blood rb3 collected. 13:30 No provider procedures requiring assistance completed. Patient admitted, IV remains in rb3 place. Administered Medications: 07:35 Drug: Pepcid 20 mg Route: IVP; Site: right antecubital; rb3 07:50 Follow up: Response: No adverse reaction rb3 07:35 Drug: SOLU-Medrol 125 mg Route: IVP; Site: right antecubital; rb3 07:50 Follow up: Response: No adverse reaction rb3 07:35 Drug: Xopenex 3.75 mg Route: Inhalation; rb3 07:35 Drug: AtroVENT Aerosol 0.5 mg Route: Inhalation; rb3 07:35 Drug: Thiamine 100 mg Route: IV; Rate: bolus; Site: right antecubital; rb3 07:50 Follow up: Response: No adverse reaction rb3 07:50 Follow up: IV Status: Completed infusion rb3 07:35 Drug: Ativan 1 mg Route: IVP; Site: right antecubital; rb3 07:50 Follow up: Response: No adverse reaction rb3 07:35 Drug: levofloxacin 500 mg Volume: 100 ml; Route: IVPB; Infused Over: 60 mins; Site: rb3 right antecubital; 08:43 Follow up: Response: No adverse reaction; IV Status: Completed infusion rb3 08:07 Drug: NS 0.9% 500 ml Route: IV; Rate: bolus; Site: left antecubital; rb3 08:48 Follow up: IV Status: Completed infusion rb3 08:48 Drug: Banana Bag - (NS 0.9% 1000 ml, foLIC Acid 1 mg, Thiamine 100 mg, Multivitamin 1 rb3 amp) Route: IV; Rate: 150 ml/hr; Site: right antecubital; 09:06 Drug: Magnesium Sulfate 2 grams Route: IVPB; Infused Over: 2 hrs; Site: right rb3 antecubital; 10:58 Follow up: Response: No adverse reaction; IV Status: Completed infusion rb3 09:07 Drug: Zofran (Ondansetron) 4 mg Route: IVP; Site: right antecubital; rb3 09:23 Follow up: Response: No adverse reaction rb3 10:19 Drug: Ativan 1 mg Route: IVP; Site: right antecubital; rb3 10:35 Follow up: Response: No adverse reaction rb3 Outcome: 07:11 Decision to Hospitalize by Provider. akash 13:30 Admitted to Med/surg accompanied by tech, via stretcher, room 219, with oxygen, with rb3 chart, Report called to BRIGETTE REGALADO 13:30 Condition: stable 13:30 Instructed on the need for admit. 13:45 Patient left the ED. aa5 Signatures: Dispatcher [employer] Bg Whitfield MD MD cha Calderon, Audri, RN RN aa5 Sirisha Crespo RN Latasha De Los Santos ea ag3 Sherin Perez RN RN rb3 Corrections: (The following items were deleted from the chart) 08:14 07:35 Thiamine 100 mg IV at bolus in left antecubital rb3 rb3
[2021-01-03 07:44] LABS: Absolute Lymphocytes (CBC) 2.7 K/uL (0.7-4.9); Basophils % 0.6 % (0-1.3); Hematocrit 44.5 % (39.6-49.0); MPV 6.5 fL (7.6-11.3); RBC Red Blood Cell Count 4.41 M/uL (4.33-5.43)
[2021-01-03 07:47] LABS: Protime INR 0.87
[2021-01-03] MEDS ORDERED: METHYLPREDNISOLONE 125 MG INJ ONE (07:56)
[2021-01-03] MEDS ORDERED: IPRATROPIUM BROM 0.5MG/2.5ML ONE ×2 (07:57→12:45)
[2021-01-03] MEDS ORDERED: THIAMINE 200 MG/2 ML INJ ONE (07:57)
[2021-01-03] MEDS ORDERED: Levofloxacin500mg IV 500 MG/100 ML BAG IV ONE (07:57)
[2021-01-03] MEDS ORDERED: LEVALBUTEROL 1.25 MG/3 ML NEB ONE (07:57)
[2021-01-03] MEDS ORDERED: LORazepam 2 MG/ML VIAL ONE ×3 (07:57→13:34)
[2021-01-03] MEDS ORDERED: FAMOTIDINE 20 MG/2 ML VIAL IV ONE (07:58)
[2021-01-03] MEDS ORDERED: NA CHLORIDE 0.9% 1,000 ML with FOLIC ACID 1 MG, THIAMINE HCL 100 MG, MULTIVITAMINS INJ ... IV SCH ×4 (08:00)
[2021-01-03 08:01] LABS: ALT/SGPT 46 U/L (12-78); AST/SGOT 47 U/L (15-37); Albumin 3.9 g/dL (3.4-5.0); Alkaline Phosphatase 70 U/L (45-117); BUN Blood Urea Nitrogen 8 mg/dL (7-18); Bicarbonate 26 mmol/L (21-32); Bilirubin Direct 0.2 mg/dL (0-0.2); Bilirubin Total 0.5 mg/dL (0.2-1.0); Glucose Level 90 mg/dL (74-106); Lipase 229 U/L (73-393); Magnesium 2.1 mg/dL (1.8-2.4); NT PRO-BNP 48 pg/mL (<125); Potassium 3.8 mmol/L (3.5-5.1); Protein, Total 7.7 g/dL (6.4-8.2); Sodium Level 138 mmol/L (136-145); Troponin (Emerg Dept Use Only) < 0.02 ng/mL (0.0-0.045)
[2021-01-03] MEDS ORDERED: NA CHLORIDE 0.9% 1,000 ML ONE (08:01)
--- NOTE | 2021-01-03 08:23 | RAD REPORT ---
EXAM DESCRIPTION: RAD - Chest Single View - 01/03/2021 7:22 am CLINICAL HISTORY: COPD;Cough, left-sided chest pain COMPARISON: Portable December 14 TECHNIQUE: AP portable chest image was obtained 01/03/2021 7:22 am . FINDINGS: Lungs are clear. Interstitial pattern matches comparison. Heart and vasculature are normal . No measurable pleural effusion and no pneumothorax. No acute bony abnormality seen. No acute aortic findings suspected. IMPRESSION: No acute cardiopulmonary process. No significant change from comparison study.
[2021-01-03] MEDS ORDERED: ONDANSETRON 4 MG/2 ML VIAL ONE (09:16)
[2021-01-03] MEDS ORDERED: Magnesium Sulfate 2gm IVPB 2 G/50 ML BAG IV ONE (09:16)
--- NOTE | 2021-01-03 09:16 | P.HP ---
Certification for Inpatient Patient admitted to: Inpatient With expected LOS: >2 Midnights Practitioner: I am a practitioner with admitting privileges, knowledge of patient current condition, hospital course, and medical plan of care. Services: Services provided to patient in accordance with Admission requirements found in Title 42 Section 412.3 of the Code of Federal Regulations Patient History Date of Service: 01/03/21 Reason for admission: Shortness of breath History of Present Illness: 50-year-old gentleman with a history of alcohol abuse and COPD presented to the emergency department with a complaint of progressive shortness of breath, fever and cough over the last couple of days. Patient reports binge drinking alcohol. His last alcohol drink was early this morning around 2:00 a.m. Patient has a history of multiple hospitalization for alcohol withdrawal. Patient is to be wheezing in the ED. He was tachycardic, his oxygen saturation was 99% on room air. Chest x-ray shows no acute cardiopulmonary disease. Patient diagnosed with COPD exacerbate and hospitalized for further management. Allergies BC powder Allergy (Uncoded 02/18/19 20:46) Hives Lisinopril Adverse Reaction (Mild, Uncoded 02/11/18 13:05) Shortness of breath Home Medications: Thiamine Mononitrate (Vit B1) [Vitamin B-1] 1 tab PO BID 07/19/18 Tiotropium [place] [Spiriva] 18 mcg IH DAILY #30 cap.w.dev 10/20/18 Folic Acid 1 mg PO DAILY #30 tablet 11/15/18 LORazepam [Lorazepam] 1 tab PO BEDTIME PRN 02/12/19 Esomeprazole Mag Trihydrate [Nexium] 1 tab PO DAILY 02/13/19 Albuterol Neb [Proventil 0.083% Neb Soln] 3 ml NEB TID PRN #90 amp 02/21/19 Amlodipine [Norvasc*] 5 mg PO BEDTIME #30 tab 02/21/19 Arformoterol Tartrate [Brovana] 15 mcg NEB BIDRESP #60 vial.neb 02/21/19 Benzonatate [Tessalon Perle*] 100 mg PO TID PRN #30 cap 02/21/19 Ipratropium Neb [Atrovent*] 2.5 ml NEB TID PRN #90 amp 02/21/19 Nicotine [Nicoderm*] 21 mg TD DAILY #30 patch.td24 02/21/19 predniSONE [Deltasone*] 10 mg PO BID #40 tab 02/21/19 - Past Medical/Surgical History Diabetic: No -: Hypertension -: COPD on chronic steroids -: Tobacco abuse -: Alcohol abuse -: GERD -: Obesity -: 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 - Family History Mother -: Diabetes, Cancer Notes: colon cancer Father -: Lung disease Notes: COPD - Social History Smoking Status: Current every day smoker Alcohol use: Yes CD- Drugs: No Caffeine use: Yes Review of Systems Other: Patient complaining of left flank pain. Except as documented, all other systems reviewed and negative. Physical Examination - Physical Exam General: Alert, In no apparent distress, Oriented x3 HEENT: Mucous membr. moist/pink, EOMI, Sclerae nonicteric Neck: Supple, JVD not distended Respiratory: Diminished (Bilaterally), Expiratory wheezes (Bilateral scattered wheezes) Cardiovascular: No edema, Normal S1 S2, Other (Tachycardia) Gastrointestinal: Normal bowel sounds, Soft and benign, No tenderness, Other (Protuberant abdomen) Musculoskeletal: No swelling, No tenderness Integumentary: No rashes, No erythema Neurological: Normal strength at 5/5 x4 extr, Cranial nerves 3-12 intact - Studies Laboratory Data (last 24 hrs) 01/03/21 07:33: PT 10.0, INR 0.87 01/03/21 07:33: WBC 10.70, Hgb 15.3, Hct 44.5, Plt Count 207 01/03/21 07:33: Sodium 138, Potassium 3.8, BUN 8, Creatinine 0.66, Glucose 90, Magnesium 2.1, Total Bilirubin 0.5, AST 47 H, ALT 46, Alkaline Phosphatase 70, Lipase 229 Assessment and Plan - Problems (Diagnosis) (1) COPD exacerbation Onset Date: 09/07/18 Current Visit: No Status: Acute (2) Alcohol intoxication Current Visit: Yes Status: Acute (3) Tobacco abuse Onset Date: 02/11/18 Current Visit: No Status: Chronic - Plan Admit to the medical floor. Treat COPD exacerbation with IV Solu-Medrol, scheduled albuterol and ipratropium. No indication for antibiotics at this time. Treat for impending alcohol withdrawal with WA protocol. Obtain CT chest to evaluate the left flank pain. - Advance Directives Does patient have a Living Will: No Does patient have a Durable POA for Healthcare: No
[2021-01-03] MEDS: LORAZEPAM 1 MG TABLET PO SCH ×4 (10:00→21:32)
[2021-01-03] MEDS ORDERED: FLUMAZENIL 0.1 MG/ML (5 mL VIAL) IV PRN (10:47)
[2021-01-03] MEDS ORDERED: ONDANSETRON 4 MG/2 ML VIAL IV PRN (10:47)
[2021-01-03] MEDS ORDERED: LORazepam 2 MG/ML VIAL IV PRN ×2 (10:47)
[2021-01-03] MEDS: ENOXAPARIN 40 MG/0.4 ML SQ SCH (10:47)
[2021-01-03] MEDS ORDERED: HALOPERIDOL LACT 5 MG/ML INJ IM PRN (10:47)
[2021-01-03] MEDS ORDERED: LORAZEPAM 1 MG TABLET PO PRN (10:47)
[2021-01-03] MEDS: NICOTINE 21 MG/PAT TD SCH (12:00)
[2021-01-03] MEDS: METHYLPREDNISOLONE 40 MG INJ IV SCH ×2 (12:00→17:35)
[2021-01-03] MEDS ORDERED: NICOTINE 21 MG/PAT TD ONE (12:20)
[2021-01-03] MEDS ORDERED: METHYLPREDNISOLONE 40 MG INJ ONE (12:20)
[2021-01-03] MEDS ORDERED: ENOXAPARIN 40 MG/0.4 ML SQ ONE (12:21)
[2021-01-03] MEDS ORDERED: ALBUTEROL 2.5 MG/3 ML NEB SOL ONE (12:45)
[2021-01-03] MEDS: ALBUTEROL 2.5 MG/3 ML NEB SOL NEB SCH ×2 (13:40→20:10)
[2021-01-03] MEDS: IPRATROPIUM BROM 0.5MG/2.5ML NEB SCH ×2 (13:40→20:10)
[2021-01-03 14:17] VITALS: BMI 36.3
[2021-01-03] MEDS ORDERED: INFLUENZA VACCINE (for 3y+) 0.5 ML DOSE IMVAC ONE (15:00)
[2021-01-03 16:43] LABS: Urine Appearance CLEAR; Urine Bilirubin NEGATIVE (NEG); Urine Blood NEGATIVE (NEG); Urine Color YELLOW; Urine Glucose TRACE (NEG); Urine Protein NEGATIVE (NEG); Urine Specific Gravity 1.015 (1.005-1.030); Urine Urobilinogen 0.2 mg/dL (0.2-1.0); Urine pH 5.5 (5.0-7.0)
[2021-01-03 16:47] LABS: Urine Microscopic Reflex NO UMIC
--- NOTE | 2021-01-03 17:39 | RAD REPORT ---
EXAM DESCRIPTION: CT - Chest Abdomen Pelvis W Cont - 01/03/2021 4:50 pm CLINICAL HISTORY: Chest and abdominal pain COMPARISON: none TECHNIQUE: Computed axial tomography of the chest, abdomen and pelvis was obtained. 100 cc Isovue-30 0 was administered intravenously. Oral contrast was given. All CT scans are performed using dose optimization technique as appropriate and may include automated exposure control or mA/KV adjustment according to patient size. FINDINGS: The lungs are clear. No mediastinal or hilar lymphadenopathy A pleural effusion is not present. A pericardial effusion is not noted Fatty liver Punctate nonobstructing bilateral renal calculi. Spleen, pancreas, and adrenals appear unremarkable. There is no evidence of diverticulitis. Small inguinal hernias contain fat Normal appendix IMPRESSION: No traumatic injury involving the chest, abdomen nor pelvis is seen.
[2021-01-03] MEDS: Budesonide/Formoterol Fumarate [Symbicort 160-4.5 Mcg Inhaler] 10.2 GM IH SCH (21:00)
[2021-01-03] MEDS ORDERED: POTASSIUM CL SA 10 MEQ TAB PO ONE (21:00)
[2021-01-03] MEDS ORDERED: ACETAMINOPHEN 500 MG TAB ONE (22:40)
[2021-01-04] MEDS: METHYLPREDNISOLONE 40 MG INJ IV SCH ×2 (00:22→06:00)
[2021-01-04] MEDS: LORAZEPAM 1 MG TABLET PO SCH ×3 (01:43→09:38)
[2021-01-04] MEDS: IPRATROPIUM BROM 0.5MG/2.5ML NEB SCH ×2 (02:15→08:55)
[2021-01-04] MEDS: ALBUTEROL 2.5 MG/3 ML NEB SOL NEB SCH ×2 (02:15→08:55)
[2021-01-04 04:52] LABS: Absolute Lymphocytes (CBC) 0.4 K/uL (0.7-4.9); Basophils % 0.3 % (0-1.3); Hematocrit 40.3 % (39.6-49.0); Lymphocytes % 7.6 % (15.3-44.8); MPV 7.1 fL (7.6-11.3)
[2021-01-04 05:13] LABS: ALT/SGPT 42 U/L (12-78); AST/SGOT 28 U/L (15-37); Albumin 3.4 g/dL (3.4-5.0); Alkaline Phosphatase 68 U/L (45-117); BUN Blood Urea Nitrogen 13 mg/dL (7-18); Bicarbonate 28 mmol/L (21-32); Bilirubin Total 0.4 mg/dL (0.2-1.0); Glucose Level 147 mg/dL (74-106); Magnesium 2.8 mg/dL (1.8-2.4); Phosphorus 2.5 mg/dL (2.5-4.9); Potassium 3.8 mmol/L (3.5-5.1); Protein, Total 6.8 g/dL (6.4-8.2); Sodium Level 137 mmol/L (136-145)
[2021-01-04 05:29] LABS: Blood Morphology Comment NOT SEEN (NOT SEEN); Platelet Estimate ADEQ
[2021-01-04] MEDS ORDERED: FOLIC ACID 1 MG, MULTIVITAMINS INJ 10 ML, THIAMINE HCL 100 MG in NA CHLORIDE 0.9% 1,000 ML IV SCH (09:00)
[2021-01-04] MEDS ORDERED: PANTOPRAZOLE 40MG TABLET PO SCH (09:00)
[2021-01-04] MEDS ORDERED: NICOTINE 21 MG/PAT TD SCH (09:00)
[2021-01-04] MEDS ORDERED: SPIRONOLACTONE 25 MG TABLET PO SCH (09:00)
[2021-01-04] MEDS: Budesonide/Formoterol Fumarate [Symbicort 160-4.5 Mcg Inhaler] 10.2 GM IH SCH (09:00)
[2021-01-04] MEDS ORDERED: AMLODIPINE 5 MG TAB PO SCH (09:00)
[2021-01-04] MEDS ORDERED: HOME MED 1 EA UNK (Esomeprazole Mag Trihydrate [Nexium] 40 MG Capsule.Dr) PO SCH (09:00)
[2021-01-04] MEDS: NICOTINE 21 MG/PAT TD SCH (09:18)
[2021-01-04] MEDS: ENOXAPARIN 40 MG/0.4 ML SQ SCH (09:18)
[2021-01-04 09:32] VITALS: O2SAT 97
--- NOTE | 2021-01-04 11:07 | P.CNS ---
Date of Consult: 01/04/21 Reason for Consult: Shortness of breath left-sided chest pain Chief Complaint: Shortness of breath History of Present Illness: Patient is 50 years of age admitted with left-sided chest discomfort shortness of breath he is an alcoholic as recently prescribed steroids and antibiotic in doing better CT scan of the chest abdomen no significant abnormalities noted his CTs clear feeling better Allergies BC powder Allergy (Uncoded 02/18/19 20:46) Hives Lisinopril Adverse Reaction (Mild, Uncoded 02/11/18 13:05) Shortness of breath Home Medications: Thiamine Mononitrate (Vit B1) [Vitamin B-1] 1 tab PO BID 07/19/18 Esomeprazole Mag Trihydrate [Nexium] 1 tab PO DAILY 02/13/19 Amlodipine [Norvasc*] 5 mg PO DAILY 01/03/21 Budesonide/Formoterol Fumarate [Symbicort 160-4.5 Mcg Inhaler] 2 puff IH BID Spironolactone [Aldactone] 25 mg PO DAILY 01/03/21 Tiotropium [place] [Spiriva] 18 mcg IH DAILY PRN 01/03/21 levoFLOXacin [Levaquin] 750 mg PO DAILY 01/03/21 predniSONE [Deltasone*] 10 mg PO DAILY 01/03/21 - Past Medical/Surgical History Diabetic: No -: Hypertension -: COPD on chronic steroids -: Tobacco abuse -: Alcohol abuse -: GERD -: Obesity -: 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 - Family History Mother Medical History: Diabetes, Cancer Notes: colon cancer Father Medical History: Lung disease Notes: COPD - Social History Smoking Status: Current every day smoker Alcohol use: Yes CD- Drugs: No Caffeine use: Yes Review of Systems General: Weakness Respiratory: Shortness of Breath Cardiovascular: Chest Pain Physical Examination Temp Pulse Resp BP Pulse Ox 97.0 F 110 H 16 136/88 94 01/04/21 08:00 01/04/21 09:32 01/04/21 08:00 01/04/21 09:32 01/04/21 08:00 General: Alert, In no apparent distress, Oriented x3 Respiratory: Expiratory wheezes Cardiovascular: No edema, Regular rate/rhythm - Problems (1) COPD exacerbation Onset Date: 10/30/18 Current Visit: No Status: Acute Plan: Patient is 50 years of age alcoholic admitted with worsening shortness of breath chest pain he is feeling better and discharge home he is to continue with his present medication prognosis poor refuses to quit vital signs are stable stable for discharge
--- NOTE | 2021-01-04 11:36 | P.DS ---
Admission Date: 01/03/21 Discharge Date: 01/04/21 Disposition: ROUTINE DISCHARGE Discharge Condition: FAIR Reason for Admission: Shortness of breath - Problems (1) COPD exacerbation Onset Date: 09/07/18 Status: Acute (2) Alcohol intoxication Status: Acute (3) Tobacco abuse Onset Date: 02/11/18 Status: Chronic Brief History of Present Illness: 50-year-old gentleman with a history of alcohol abuse and COPD presented to the emergency department with a complaint of progressive shortness of breath, fever and cough over the last couple of days. Patient reports binge drinking alcohol. His last alcohol drink was early this morning around 2:00 a.m. Patient has a history of multiple hospitalization for alcohol withdrawal. Patient is to be wheezing in the ED. He was tachycardic, his oxygen saturation was 99% on room air. Chest x-ray shows no acute cardiopulmonary disease. Patient diagnosed with COPD exacerbate and hospitalized for further management. Hospital Course: Patient placed under observation on the medical floor. He was treated with IV Solu-Medrol, scheduled ipratropium and albuterol. Patient was also placed on CIWA protocol with oral ativan. His clinical condition improved within 24 hr. Patient respiratory condition was back to baseline. He is not wheezing today and his saturation well at 97% on room air. He did not develop alcohol withdrawal symptoms. Patient is deemed clinically stable for discharge. He is prescribed short course prednisone therapy. This is prescribed and nebulizer and p.r.n. albuterol. His other home medications resumed on discharge. Vital Signs/Physical Exam: Temp Pulse Resp BP Pulse Ox 97.0 F 110 H 16 136/88 94 01/04/21 08:00 01/04/21 09:32 01/04/21 08:00 01/04/21 09:32 01/04/21 08:00 General: Alert, In no apparent distress, Oriented x3 HEENT: Mucous membr. moist/pink, EOMI, Sclerae nonicteric Neck: Supple, JVD not distended Respiratory: Clear to auscultation bilaterally, Normal air movement Cardiovascular: No edema, Regular rate/rhythm, Normal S1 S2 Gastrointestinal: Soft and benign, Non-distended, No tenderness Musculoskeletal: No swelling, No tenderness Integumentary: No rashes Neurological: Normal strength at 5/5 x4 extr, Cranial nerves 3-12 intact Laboratory Data at Discharge: WBC 5.00 K/uL (4.3-10.9) D 01/04/21 04:37 Hgb 13.8 g/dL (13.6-17.9) 01/04/21 04:37 Hct 40.3 % (39.6-49.0) 01/04/21 04:37 Plt Count 169 K/uL (152-406) 01/04/21 04:37 PT 10.0 SECONDS (9.5-12.5) 01/03/21 07:33 INR 0.87 01/03/21 07:33 Sodium 137 mmol/L (136-145) 01/04/21 04:37 Potassium 3.8 mmol/L (3.5-5.1) 01/04/21 04:37 BUN 13 mg/dL (7-18) 01/04/21 04:37 Creatinine 0.53 mg/dL (0.55-1.3) L 01/04/21 04:37 Glucose 147 mg/dL (74-106) H 01/04/21 04:37 Phosphorus 2.5 mg/dL (2.5-4.9) 01/04/21 04:37 Magnesium 2.8 mg/dL (1.8-2.4) H D 01/04/21 04:37 Total Bilirubin 0.4 mg/dL (0.2-1.0) 01/04/21 04:37 AST 28 U/L (15-37) 01/04/21 04:37 ALT 42 U/L (12-78) 01/04/21 04:37 Alkaline Phosphatase 68 U/L (45-117) 01/04/21 04:37 Lipase 229 U/L (73-393) 01/03/21 07:33 Home Medications: Thiamine Mononitrate (Vit B1) [Vitamin B-1] 1 tab PO BID 07/19/18 Esomeprazole Mag Trihydrate [Nexium] 1 tab PO DAILY 02/13/19 Amlodipine [Norvasc*] 5 mg PO DAILY 01/03/21 Budesonide/Formoterol Fumarate [Symbicort 160-4.5 Mcg Inhaler] 2 puff IH BID 01/03/21 Spironolactone [Aldactone*] 25 mg PO DAILY 01/03/21 Tiotropium [place] [Spiriva] 18 mcg IH DAILY PRN 01/03/21 Albuterol Neb [Proventil 0.083% Neb Soln] 2.5 mg NEB [id number] PRN #120 amp 01/04/21 Nebulizer [Aeroneb Go Nebulizer] 1 each MC TID #1 each 01/04/21 predniSONE [Prednisone] 40 mg PO DAILY #5 tablet 01/04/21 New Medications: Albuterol Neb [Proventil 0.083% Neb Soln] 2.5 mg NEB [id number] PRN #120 amp PRN Reason: Wheezing Nebulizer [Aeroneb Go Nebulizer] 1 each MC TID #1 each predniSONE [Prednisone] 40 mg PO DAILY #5 tablet Diet: AHA Activity: Ad lenin Followup: Mayur Martinez MD [Primary Care Provider] - 1-2 Weeks
[2021-01-04 12:33] VITALS: BP 170/89; TEMP 97.5
--- NOTE | 2021-01-04 14:13 | EKG ---
Test Date: 2021-01-03 Test Time: 06:39:51 Operating Room Coordinator: ROB MEASUREMENT RESULTS: Intervals: Rate: 118 UT: 122 QRSD: 94 QT: 324 QTc: 454 [place]: P: 59 UT: 122 QRS: 88 T: 75 INTERPRETIVE STATEMENTS: Sinus tachycardia Incomplete right bundle branch block Borderline ECG Compared to ECG 12/14/2020 03:46:54 Sinus rhythm no longer present Electronically Signed On 01-04-21 14:09:25 OFFICE COORDINATOR RECEPTIONIST by Clovis Barrios
[2021-01-05] MEDS ORDERED: LORAZEPAM 1 MG TABLET PO SCH (10:00)
== END 2021-01-04 13:58 | disposition home or self-care (01) ==
LOC: ER 06:25 → ERHOLD 08:15 → INTOOBSV 08:15 → 4TH 13:22 → 2ND 13:23
PROVIDERS: ADMIT Internal Medicine; ATTEND Internal Medicine
DX: J44.1 Chronic obstructive pulmonary disease with (acute) exacerbation (principal); F10.121 Alcohol abuse with intoxication delirium; I10 Essential (primary) hypertension; K21.9 Gastro-esophageal reflux disease without esophagitis; F17.210 Nicotine dependence, cigarettes, uncomplicated; Z71.6 Tobacco abuse counseling; E66.9 Obesity, unspecified; Z68.36 Body mass index [BMI] 36.0-36.9, adult; Z79.52 Long term (current) use of systemic steroids; Z20.822 Contact with and (suspected) exposure to COVID-19; Z23 Encounter for immunization; Z83.3 Family history of diabetes mellitus; Z80.0 Family history of malignant neoplasm of digestive organs; Z82.5 Family history of asthma and other chronic lower respiratory diseases
CPT/HCPCS: 96365; 96367; 93005; 87040 ×2; 85025 ×2; 80048; 36415; 80320; 83735 ×2; 84100; 85610; 80076; 81003; 84484; 83690; 80053; 83880; 71260; 74177; 71045; 90471; 94640 ×4; 94760 ×3; 96375; 99285; 96366; U0003; Q9967; J3411 ×3; Q2035; J1650 ×2; J3475; J7030 ×3; J2930; J2405; J2920 ×4; G0378

== ENCOUNTER 2021-03-21 06:15 | Day surgery (SDC) | payer BC ==
[2021-03-21] MEDS ORDERED: Ringers Lactate 1,000 ML IV ONE (06:51)
[2021-03-21] MEDS ORDERED: LIDOCAINE 1% MPF 5 ML VIAL ONE (07:50)
[2021-03-21] MEDS ORDERED: propofoL 200 MG/20 ML VIAL IV ONE ×2 (07:50→08:26)
[2021-03-21 09:01] VITALS: BP 129/78; TEMP 98; O2SAT 100
--- NOTE | 2021-03-21 21:08 | OP ---
Surgeon: John Powers MD Procedure Performed: Colonoscopy. Indication For Procedure: Screening, also family history. Plan For Anesthesia: Monitored anesthesia care. Complexity: High due to patient having advanced COPD and obstructive sleep apnea. Technique: After obtaining informed consent from the patient explaining risks and complications, whi ch include, but are not limited to bleeding, infection, perforation, and anesthesia complication, pat ient was placed in the left lateral position and sedation was given. From then on, digital rectal ex am was performed and scope was inserted into the rectum and carefully guided up till the cecum. The cecum was identified by the appendiceal orifice and ileocecal valve. Quality of prep was fair. Subs equently scope was gradually withdrawn while carefully examining the mucosa. Scope withdrawal time w as 18 minutes. Findings: 1.Digital rectal exam revealed a smooth but mildly enlarged prostate. 2.Few diverticula were seen in the sigmoid. 3.A linear ulcer was visualized near the hepatic flexure. Biopsies were taken and the area below th e ulcer was tattooed. 4.In the cecum, nonbleeding small to medium-sized angiodysplasia was seen. 5.Internal hemorrhoids were seen on retroflexion. 6.Multiple polyps were seen as detailed below. a.3 mm polyp seen in the cecum removed with hot biopsy. b.Flat 1.2 cm polyp seen in the proximal transverse. This was completely resected with snare polype ctomy after tattoo, left injection. c.5 mm polyp was seen in the descending colon. This was removed by hot biopsy polypectomy. d.Two polyps 3 to 4 mm in size were seen in the sigmoid colon, removed with hot biopsy. e.Several polyps, which were diminutive in size and appeared benign, hyperplastic were seen in the r ectum. [employer] biopsies were taken. Complications: None. Tolerance To Anesthesia: Excellent. Postoperative Diagnoses: Colonic ulcer, colon arteriovenous malformation, multiple colon polyps, div erticulosis, internal hemorrhoids and large prostate. Plan: Continue current management. Await pathology results. Repeat colonoscopy in 2 years. Follow up with PCP for prostate. US/MODL Voice ID: [id number] Report ID: [id number]
== END 2021-03-21 08:55 | disposition home or self-care (01) ==
LOC: OR 06:15
PROVIDERS: ATTEND Internal Medicine Gastroenterology
PROC: 0DBN8ZX Excision of Sigmoid Colon, Via Natural or Artificial Opening Endoscopic, Diagnostic (ICD-10-PCS; 2021-03-21)
PROC: 0DBM8ZX Excision of Descending Colon, Via Natural or Artificial Opening Endoscopic, Diagnostic (ICD-10-PCS; 2021-03-21)
PROC: 0DBL8ZX Excision of Transverse Colon, Via Natural or Artificial Opening Endoscopic, Diagnostic (ICD-10-PCS; 2021-03-21)
PROC: 0DBH8ZX Excision of Cecum, Via Natural or Artificial Opening Endoscopic, Diagnostic (ICD-10-PCS; principal; 2021-03-21 07:30)
DX: Z12.11 Encounter for screening for malignant neoplasm of colon (principal); K64.8 Other hemorrhoids; K57.30 Diverticulosis of large intestine without perforation or abscess without bleeding; N04.1 Nephrotic syndrome with focal and segmental glomerular lesions; N40.0 Benign prostatic hyperplasia without lower urinary tract symptoms; D12.0 Benign neoplasm of cecum; D12.4 Benign neoplasm of descending colon; Z20.822 Contact with and (suspected) exposure to COVID-19
CPT/HCPCS: 88305; 45384; 45385; U0003; J2704 ×2; J7120

== ENCOUNTER 2021-10-07 04:13 | Inpatient (IN) | payer BC ==
--- OUTSIDE RECORDS SUMMARY | 2021-10-07 04:17 | XMS REPORT | Continuity of Care Document ---
:1970 Author Organization [facility] t Address [address] [place] [address] Dr. Zhou [address] [place] [address] Care Team Providers Name Role Phone Raul SUNG Attending Clinician Simi ADAMS Attending Clinician Unavailable Problems This patient has no known problems. Allergies, Adverse Reactions, Alerts Allergy Allergy Status Severity Reaction(s) Onset Inactive Treating Comm ents Source Name Type Date Date Clinician LISINOPR DRUG Active Anaphylaxis [place] INGREDI 5-16 ity of 00:00: [address] Medications This patient has no known medications. Procedures This patient has no known procedures. Encounters Start End Encounter Admission Attending Care Care Encounter Source Date/Time Date/Time Type Type Clinicians Facility Department ID 2021-02-03 2021-02-03 Outpatient Sarika SUNG [facility] [id number] Univers 11:10:00 11:10:00 DENISE [facility] 2021-01-13 2021-01-13 Outpatient [facility] [id number] [facility] 11:20:00 11:20:00 [facility] 2020-11-10 2020-11-10 Outpatient Sarika ADAMS [facility] [id number] [facility] 08:20:00 08:20:00 KARLEY [facility] Results This patient has no known results.
[2021-10-07] MEDS ORDERED: METHYLPREDNISOLONE 125 MG INJ ONE (04:40)
[2021-10-07] MEDS ORDERED: LORazepam 2 MG/ML VIAL ONE ×3 (04:41→10:37)
[2021-10-07] MEDS ORDERED: LEVALBUTEROL 1.25 MG/3 ML NEB ONE ×2 (04:42→09:03)
[2021-10-07] MEDS ORDERED: IPRATROPIUM BROM 0.5MG/2.5ML ONE ×3 (04:42→14:46)
[2021-10-07 04:49] LABS: Absolute Lymphocytes (CBC) 3.1 K/uL (0.7-4.9); Hematocrit 50.5 % (39.6-49.0); Lymphocytes % 30.3 % (15.3-44.8); MPV 6.8 fL (7.6-11.3); RBC Red Blood Cell Count 5.06 M/uL (4.33-5.43)
[2021-10-07 04:50] LABS: Protime INR 0.9
[2021-10-07] MEDS ORDERED: THIAMINE 200 MG/2 ML INJ ONE (04:57)
[2021-10-07] MEDS ORDERED: MULTIVITAMINS 10 ML VIAL (INJ) IV ONE (04:57)
[2021-10-07] MEDS ORDERED: NA CHLORIDE 0.9% 1,000 ML ONE (04:57)
[2021-10-07] MEDS ORDERED: FOLIC ACID 5 MG/ML VIAL ONE (04:59)
[2021-10-07 05:00] LABS: Arterial Blood Carboxyhemoglob 7.3 % (0-1.5); Blood Gas Oxyhemoglobin 88.4 % (94-97); Blood O2 Saturation 96.4 % (92-98.5)
[2021-10-07 05:12] LABS: ALT/SGPT 55 U/L (12-78); AST/SGOT 53 U/L (15-37); Albumin 4.1 g/dL (3.4-5.0); Alkaline Phosphatase 68 U/L (45-117); BUN Blood Urea Nitrogen 4 mg/dL (7-18); Bicarbonate 21 mmol/L (21-32); Bilirubin Direct 0.1 mg/dL (0-0.2); Bilirubin Total 0.5 mg/dL (0.2-1.0); Glucose Level 119 mg/dL (74-106); NT PRO-BNP 54 pg/mL (<125); Potassium 4.1 mmol/L (3.5-5.1); Protein, Total 8.2 g/dL (6.4-8.2); Sodium Level 137 mmol/L (136-145); Troponin (Emerg Dept Use Only) < 0.02 ng/mL (0.0-0.045)
[2021-10-07 06:54] LABS: SARS-COV-2 RT PCR NEGATIVE (NEGATIVE)
--- NOTE | 2021-10-07 08:49 | RAD REPORT ---
EXAM DESCRIPTION: CT - Chest For Pe Angio - 10/07/2021 8:17 am CLINICAL HISTORY: SOB COMPARISON: Chest For Pe Angio dated 02/12/2019; Chest Single View dated 10/07/2021 TECHNIQUE: Dynamically enhanced 3 mm thick images of the chest were obtained during administration o f approximately 150mL Isovue 370 IV contrast. Reconstruction axial 2 millimeter lung window settings generated and reviewed. Coronal and oblique MIP reconstruction images were generated and reviewed. Ex am utilizes a protocol to evaluate the pulmonary arterial tree. All CT scans are performed using dose optimization technique as appropriate and may include automated exposure control or mA/KV adjustment according to patient size. FINDINGS: No pulmonary emboli are identified. The aorta as imaged shows no acute or suspicious finding. No pericardial thickening or effusion. No dense mass or consolidation identified. Trace amounts of nodular ground-glass opacities are presen t in the right upper lobe (image 61) likely a small focus of infectious/inflammatory change. Aggressi ve or malignant nodularity is not suspected. Largest of these nodular foci is under 5 mm. This is germain y likely a sub clinical finding. No pleural effusion or pleural thickening. No mediastinal or hilar suspicious masses. No chest wall masses or abnormal axillary lymphadenopathy. IMPRESSION: No pulmonary emboli identified. No significant lung parenchymal process. Minimal nodular ground-glass opacities in the right upper lo be could be very minimal infectious focus. This is probably sub clinical at this very small size.
--- NOTE | 2021-10-07 08:53 | EDPHYS ---
Physician Documentation [facility] Name: Randy Briones Age: 51 yrs Sex: Male : 1970 Arrival Date: 10/07/2021 Time: 04:16 Bed 20 Private MD: Bg Manriquez HPI: 10/07 04:41 This 51 yrs old Male presents to ER via Ambulatory with complaints of COPD mh7 Exacerbation, Breathing Difficulty. 04:41 The patient has shortness of breath at rest. Onset: The symptoms/episode began/occurred mh7 last night. Duration: The symptoms are continuous, and are unchanged since they started. The patient's shortness of breath is aggravated by exertion, light activity, is alleviated by nothing. Associated signs and symptoms: Pertinent negatives: chest pain, non-productive cough, productive cough, diaphoresis, dizziness, fever, hemoptysis, loss of consciousness, nausea, numbness in extremities, visual changes, vomiting. Severity of symptoms: At their worst the symptoms were moderate last night, in the emergency department the symptoms are unchanged. The patient has experienced similar episodes in the past, multiple times. Historical: - Allergies: 04:38 Lisinopril; lp1 - Home Meds: 04:38 Advair Diskus 250-50 mcg/dose Inhl dsdv 1 puff 2 times per day [Active]; albuterol lp1 sulfate 2.5 mg /3 mL (0.083 %) Inhl nebu 3 mL 3 times per day [Active]; gabapentin 100 mg Oral cap 3 caps 3 times per day [Active]; montelukast 10 mg Oral tab 1 tab once daily [Active]; Nexium 40 mg Oral cpDR 1 cap 2 times per day [Active]; Norvasc 10 mg Oral tab once daily [Active]; Spiriva with HandiHaler inhalation [Active]; Triamterene-Hydrochlorothiazid Oral once daily [Active]; - PMHx: 04:38 Alcoholism; COPD; Hypertension; lp1 - PSHx: 04:38 Amputation of left index finger; lp1 - Immunization history:: Adult Immunizations up to date. - Social history:: Smoking status: Patient reports the use of cigarette tobacco products, smokes two packs cigarettes per day. Patient uses alcohol, patient/guardian reports recent binge of alcohol consumption. x 3 weeks, 24pk/day- beer. Patient/guardian denies using street drugs. ROS: 04:41 Constitutional: Negative for fever, chills, and weight loss, Eyes: Negative for injury, mh7 pain, redness, and discharge, ENT: Negative for injury, pain, and discharge, Neck: Negative for injury, pain, and swelling, Cardiovascular: Negative for chest pain, palpitations, and edema, Abdomen/GI: Negative for abdominal pain, nausea, vomiting, diarrhea, and constipation, Back: Negative for injury and pain, : Negative for injury, bleeding, discharge, and swelling, MS/Extremity: Negative for injury and deformity, Skin: Negative for injury, rash, and discoloration, Neuro: Negative for headache, weakness, numbness, tingling, and seizure, Psych: Negative for depression, anxiety, suicide ideation, homicidal ideation, and hallucinations, Allergy/Immunology: Negative for hives, rash, and allergies, Endocrine: Negative for neck swelling, polydipsia, polyuria, polyphagia, and marked weight changes, Hematologic/Lymphatic: Negative for swollen nodes, abnormal bleeding, and unusual bruising. Exam: 04:41 Head/Face: Normocephalic, atraumatic. Eyes: Pupils equal round and reactive to light, mh7 extra-ocular motions intact. Lids and lashes normal. Conjunctiva and sclera are non-icteric and not injected. Cornea within normal limits. Periorbital areas with no swelling, redness, or edema. Neck: Trachea midline, no thyromegaly or masses palpated, and no cervical lymphadenopathy. Supple, full range of motion without nuchal rigidity, or vertebral point tenderness. No Meningismus. Chest/axilla: Normal chest wall appearance and motion. Nontender with no deformity. No lesions are appreciated. 04:41 Abdomen/GI: Soft, non-tender, with normal bowel sounds. No distension or tympany. No guarding or rebound. No evidence of tenderness throughout. Back: No spinal tenderness. No costovertebral tenderness. Full range of motion. Skin: Warm, dry with normal turgor. Normal color with no rashes, no lesions, and no evidence of cellulitis. MS/ Extremity: Pulses equal, no cyanosis. Neurovascular intact. Full, normal range of motion. Neuro: Awake and alert, GCS 15, oriented to person, place, time, and situation. Cranial nerves II-XII grossly intact. Motor strength 5/5 in all extremities. Sensory grossly intact. Cerebellar exam normal. Normal gait. Psych: Awake, alert, with orientation to person, place and time. Behavior, mood, and affect are within normal limits. 04:41 Constitutional: The patient appears alert, awake, in obvious distress, mildly distressed, uncomfortable. 04:41 Cardiovascular: Rate: tachycardic, Rhythm: regular, Pulses: no pulse deficits are appreciated, Heart sounds: normal, normal S1and S2, Edema: is not appreciated, JVD: is not appreciated. 04:41 Respiratory: mild respiratory distress is noted, Respirations: prolonged exhalation, that is mild, Breath sounds: rhonchi, that are mild, are heard diffusely, wheezing: expiratory that is mild, is heard diffusely, Respiratory rate: 24 08:49 ECG was reviewed by the Attending Physician. akash Vital Signs: 04:36 BP 178 / 118; Pulse 130; Resp 24; Temp 97.7(O); Pulse Ox 99% on R/A; Weight 96.16 kg lp1 (R); Height 5 ft. 4 in. (162.56 cm); Pain 0/10; 08:01 BP 170 / 104; Pulse 123; Resp 24 S; Pulse Ox 98% on 2 lpm NC; bb 08:56 BP 170 / 100; Pulse 136; Resp 20; Temp 97.9; Pulse Ox 97% on R/A; sl2 09:30 BP 169 / 95; Pulse 128; Resp 22; Temp 97.8; Pulse Ox 99% on 2 lpm NC; sl2 10:30 BP 178 / 108; Pulse 129; Resp 18; Pulse Ox 96% on R/A; sl2 11:00 BP 173 / 100; Pulse 113; Resp 20; Temp 97.8(O); Pulse Ox 95% on R/A; sl2 12:00 BP 168 / 96; Pulse 119; Resp 20; Pulse Ox 96% on R/A; sl2 13:00 BP 171 / 100; Pulse 120; Resp 20; Pulse Ox 96% ; sl2 13:45 BP 167 / 94; Pulse 111; Resp 18; Temp 98.4; Pulse Ox 96% on R/A; sl2 04:36 Body Mass Index 36.39 (96.16 kg, 162.56 cm) lp1 MDM: 08:16 Transition of care: After a detail discussion of the patient's case, care is 7 transferred to Bg Briones MD. 08:17 Patient medically screened. [facility] 10/07 04:36 Order name: Basic Metabolic Panel; Complete Time: 06:03 [facility] 10/07 04:36 Order name: CBC with Diff; Complete Time: 06:03 [facility] 10/07 04:36 Order name: LFT's; Complete Time: 06:03 [facility] 10/07 04:36 Order name: Magnesium; Complete Time: 06:03 [facility] 10/07 04:36 Order name: NT PRO-BNP; Complete Time: 06:03 [facility] 10/07 04:36 Order name: PT-INR; Complete Time: 06:03 [facility] 10/07 04:36 Order name: Troponin (emerg Dept Use Only); Complete Time: 06:03 [facility] 10/07 04:37 Order name: ETOH Level; Complete Time: 06:03 [facility] 10/07 04:37 Order name: UDS [facility] 10/07 04:37 Order name: Arterial Blood Gas [facility] 10/07 04:38 Order name: ABG Arterial Blood Gas; Complete Time: 06:03 [facility] 10/07 04:39 Order name: COVID-19/FLU A+B (Document "Date of Onset" if Symptomatic); Complete Time: [facility] 07:10/07 08:48 Order name: Blood Culture Adult (2) [facility] 10/07 08:48 Order name: SARS-COV-2 RT PCR (Document "Date of Onset" if Symptomatic) [facility] 10/07 04:36 Order name: XRAY Chest (1 view) [facility] 10/07 07:59 Order name: CT Chest For PE Angio; Complete Time: 08:53 [facility] 10/07 08:54 Order name: ABG [facility] 10/07 10:26 Order name: Urine Dipstick-Ancillary [facility] 10/07 10:46 Order name: T4 Free [facility] 10/07 10:46 Order name: Thyroid Stimulating Hormone [facility] 10/07 10:46 Order name: Comprehensive Metabolic Panel [facility] 10/07 10:46 Order name: Comprehensive Metabolic Panel [facility] 10/07 10:46 Order name: Magnesium [facility] 10/07 10:46 Order name: Magnesium [facility] 10/07 04:36 Order name: EKG; Complete Time: 04:37 [facility] 10/07 04:36 Order name: Cardiac monitoring; Complete Time: 04:37 [facility] 10/07 04:36 Order name: EKG - Nurse/Tech; Complete Time: 04:37 [facility] 10/07 04:36 Order name: IV Saline Lock; Complete Time: 04:37 [facility] 10/07 04:36 Order name: Labs collected and sent; Complete Time: 04:37 [facility] 10/07 04:36 Order name: O2 Per Protocol; Complete Time: 05:10 [facility] 10/07 04:36 Order name: O2 Sat Monitoring; Complete Time: 04:37 [facility] 10/07 04:37 Order name: Urine Dipstick-Ancillary (obtain specimen); Complete Time: 10:27 [facility] 10/07 04:38 Order name: Oxygen; Complete Time: 05:10 [facility] 10/07 10:44 Order name: CONS Physician Consult [facility] 10/07 10:51 Order name: Delirium Tremens Prophylaxis-IV Meds [facility] 10/07 10:53 Order name: Speech Therapy Consult [facility] 10/07 10:53 Order name: Full Liquid [facility] EC:49 Rate is 125 beats/min. Rhythm is regular. QRS [place] is Normal. MA interval is normal. akash QRS interval is normal. QT interval is normal. No Q waves. T waves are Normal. No ST changes noted. Clinical impression: Sinus tachycardia. Interpreted by me. Reviewed by me. Administered Medications: 04:50 Drug: Ativan (LORazepam) 1 mg Route: IVP; Site: right antecubital; kd3 04:51 Drug: Xopenex (levalbuterol) (3) 1.25 mg Route: Inhalation; kd3 04:51 Drug: AtroVENT (ipratropium) Aerosol 0.5 mg Route: Inhalation; kd3 11:08 Follow up: Response: No adverse reaction sl2 04:51 Drug: SOLU-Medrol (methylPrednisoLONE) 125 mg Route: IVP; Site: right antecubital; kd3 05:09 Drug: Banana Bag - (NS 0.9% 1000 ml, foLIC Acid 1 mg, Thiamine 100 mg, Multivitamin 1 kd3 amp) Route: IV; Rate: calculated rate; Site: right antecubital; 11:05 Follow up: Response: No adverse reaction; IV Status: Completed infusion; IV Intake: sl2 1000ml 07:35 Drug: Ativan (LORazepam) 1 mg Route: IVP; Site: right hand; bb 08:06 CANCELLED (Duplicate Order): Ativan (LORazepam) 1 mg IVP once bb 08:10 Drug: Xopenex (levalbuterol) 1.25 mg Route: Inhalation; sl2 11:09 Follow up: Response: No adverse reaction sl2 08:10 Drug: AtroVENT (ipratropium) Aerosol 0.5 mg Route: Inhalation; sl2 11:08 Follow up: Response: No adverse reaction sl2 09:10 Drug: Xopenex (levalbuterol) 2.5 mg Route: Inhalation; sl2 11:05 Follow up: Response: No adverse reaction sl2 09:11 Drug: Pepcid (famotidine) 20 mg Route: IVP; Site: left hand; sl2 11:05 Follow up: Response: No adverse reaction sl2 09:13 Drug: Magnesium Sulfate 2 grams Route: IM; Site: Other; sl2 11:30 Follow up: Response: No adverse reaction sl2 09:15 Drug: Zosyn (piperacillin-tazobactam) 3.375 grams Route: IVPB; Infused Over: 60 mins; sl2 Site: left hand; 11:06 Follow up: Response: No adverse reaction; IV Status: Completed infusion; IV Intake: sl2 100ml 10:45 Drug: Ativan (LORazepam) 1 mg Route: IVP; Site: left hand; sl2 11:04 Follow up: Response: No adverse reaction sl2 10:45 Drug: Ativan (LORazepam) 1 mg Route: IVP; Site: left hand; sl2 11:02 Follow up: Response: No adverse reaction sl2 11:04 Follow up: Response: No adverse reaction sl2 Disposition Summary: 10/07/21 08:53 Hospitalization Ordered Hospitalization Status: Inpatient Admission akash Provider: Joselito Thibodeaux cha Location: Telemetry/MedSurg (Inpatient) akash Condition: Fair akash Problem: new akash Symptoms: have improved akash Bed/Room Type: Standard akash Room Assignment: akash Diagnosis - COPD/ Chronic obstructive pulmonary disease with (acute) exacerbation akash - Alcohol abuse akash - Tobacco abuse counseling akash - Tobacco use akash - Obesity, unspecified akash - Tachycardia, unspecified akash Forms: - Medication Reconciliation Form akash - SBAR form akash Signatures: Dispatcher [employer] EDMS Bg Briones MD MD cha Ballard, Brenda, RN RN bb Renetta Maria RN RN lp1 Issa Mayberry, COMMERCIAL LOAN PROCESSOR COMMERCIAL LOAN PROCESSOR pm1 Ramiro Winslow MD MD 7 Jessica Navarrete RN RN sl2 Polly Guzman RN RN kd3 Corrections: (The following items were deleted from the chart) 08:06 07:59 Ativan (LORazepam) 1 mg IVP once ordered. isabela george 10:52 10:46 [facility] Healthy ordered. EDMS EDMS
--- NOTE | 2021-10-07 08:53 | ER ---
Nurse's Notes [facility] Name: Randy Briones Age: 51 yrs Sex: Male : 1970 Arrival Date: 10/07/2021 Time: 04:16 Bed 20 Private MD: Diagnosis: COPD/ Chronic obstructive pulmonary disease with (acute) exacerbation;Alcohol abuse;Tobacco abuse counseling;Tobacco use;Obesity, unspecified;Tachycardia, unspecified Presentation: 10/07 04:36 Chief complaint: Patient states: Pain and trouble swallowing, seeing GI for swallow lp1 screening procedures; Reports shortness of breath progressing; States "I've been on a binge for about 3 weeks now, I had my last drink at 0030"; Reports drinking about 24 beers per day. Coronavirus screen: At this time, the client does not indicate any symptoms associated with coronavirus-19. Ebola Screen: No symptoms or risks identified at this time. Initial Sepsis Screen: Does the patient meet any 2 criteria? No. Patient's initial sepsis screen is negative. Does the patient have a suspected source of infection? No. Patient's initial sepsis screen is negative. Risk Assessment: Do you want to hurt yourself or someone else? Patient reports no desire to harm self or others. Onset of symptoms was October 07, 2021. 04:36 Method Of Arrival: Ambulatory lp1 04:36 Acuity: CANDACE 2 lp1 Triage Assessment: 05:26 General: Appears uncomfortable, Behavior is cooperative, appropriate for age, anxious. kd3 Respiratory: Reports shortness of breath at rest labored breathing Onset: The symptoms/episode began/occurred today, the patient has severe shortness of breath. Historical: - Allergies: 04:38 Lisinopril; lp1 - Home Meds: 04:38 Advair Diskus 250-50 mcg/dose Inhl dsdv 1 puff 2 times per day [Active]; albuterol lp1 sulfate 2.5 mg /3 mL (0.083 %) Inhl nebu 3 mL 3 times per day [Active]; gabapentin 100 mg Oral cap 3 caps 3 times per day [Active]; montelukast 10 mg Oral tab 1 tab once daily [Active]; Nexium 40 mg Oral cpDR 1 cap 2 times per day [Active]; Norvasc 10 mg Oral tab once daily [Active]; Spiriva with HandiHaler inhalation [Active]; Triamterene-Hydrochlorothiazid Oral once daily [Active]; - PMHx: 04:38 Alcoholism; COPD; Hypertension; lp1 - PSHx: 04:38 Amputation of left index finger; lp1 - Immunization history:: Adult Immunizations up to date. - Social history:: Smoking status: Patient reports the use of cigarette tobacco products, smokes two packs cigarettes per day. Patient uses alcohol, patient/guardian reports recent binge of alcohol consumption. x 3 weeks, 24pk/day- beer. Patient/guardian denies using street drugs. Screenin:24 Abuse screen: Denies threats or abuse. Denies injuries from another. Nutritional kd3 screening: No deficits noted. Tuberculosis screening: No symptoms or risk factors identified. Fall Risk IV access (20 points). Assessment: 05:24 Pain: Complains of pain in generalized pain in the abdomen/ chest 8/10. Neuro: No kd3 deficits noted. Level of Consciousness is awake, alert, obeys commands. Cardiovascular: Rhythm is sinus tachycardia. Respiratory: Airway is patent Respiratory effort is labored. GI: Abdomen is distended. 05:27 Respiratory: Breath sounds with wheezes bilaterally. kd3 07:30 Reassessment: pt shaking stating he needs something for the shakes Dr Wnislow bb unavailable notified Issa Mayberry NP new orders received pt medicated see JAN. 14:05 Reassessment: Patient absent from room - side rails X 2 are up, IV catheter with intact sl2 found in trash bin, blood drops on floor - patient's clothing and belongings are absent from room - patient not found in restroom, hallways or ED waiting area - patient eloped - Charge nurse made aware - will notify medical provider. Vital Signs: 04:36 BP 178 / 118; Pulse 130; Resp 24; Temp 97.7(O); Pulse Ox 99% on R/A; Weight 96.16 kg lp1 (R); Height 5 ft. 4 in. (162.56 cm); Pain 0/10; 08:01 BP 170 / 104; Pulse 123; Resp 24 S; Pulse Ox 98% on 2 lpm NC; bb 08:56 BP 170 / 100; Pulse 136; Resp 20; Temp 97.9; Pulse Ox 97% on R/A; sl2 09:30 BP 169 / 95; Pulse 128; Resp 22; Temp 97.8; Pulse Ox 99% on 2 lpm NC; sl2 10:30 BP 178 / 108; Pulse 129; Resp 18; Pulse Ox 96% on R/A; sl2 11:00 BP 173 / 100; Pulse 113; Resp 20; Temp 97.8(O); Pulse Ox 95% on R/A; sl2 12:00 BP 168 / 96; Pulse 119; Resp 20; Pulse Ox 96% on R/A; sl2 13:00 BP 171 / 100; Pulse 120; Resp 20; Pulse Ox 96% ; sl2 13:45 BP 167 / 94; Pulse 111; Resp 18; Temp 98.4; Pulse Ox 96% on R/A; sl2 04:36 Body Mass Index 36.39 (96.16 kg, 162.56 cm) lp1 ED Course: 04:16 Patient arrived in ED. bp1 04:20 Ramiro Winslow MD is Attending Physician. mh7 04:20 Polly Guzman, BRIGETTE is Primary Nurse. kd3 04:36 Inserted saline lock: 18 gauge in right antecubital area, using aseptic technique. lp1 Blood collected. 04:38 Triage completed. lp1 04:38 Arm band placed on. lp1 04:40 Patient has correct armband on for positive identification. Placed in gown. Cardiac lp1 monitor on. Pulse ox on. NIBP on. 04:56 XRAY Chest (1 view) In Process Unspecified. EDMS 07:30 Inserted saline lock: 22 gauge in right hand, using aseptic technique. bb 08:00 Bed in low position. Call light in reach. Side rails up X2. mh5 08:17 Attending Physician role handed off by Ramiro Winslow MD akash 08:17 Bg Briones MD is Attending Physician. akash 08:18 CT Chest For PE Angio In Process Unspecified. EDMS 08:50 Joselito Thibodeaux MD is Hospitalizing Provider. akash 09:27 ABG Sent. mh5 09:27 Blood Culture Adult (2) Sent. mh5 10:26 UDS Sent. mh5 10:26 Arterial Blood Gas Sent. mh5 14:26 No provider procedures requiring assistance completed. sl2 14:26 intact, bleeding controlled, No redness/swelling at site. Pressure dressing applied, sl2 Patent removed peripheral IV access - eloped. Administered Medications: 04:50 Drug: Ativan (LORazepam) 1 mg Route: IVP; Site: right antecubital; kd3 04:51 Drug: Xopenex (levalbuterol) (3) 1.25 mg Route: Inhalation; kd3 04:51 Drug: AtroVENT (ipratropium) Aerosol 0.5 mg Route: Inhalation; kd3 11:08 Follow up: Response: No adverse reaction sl2 04:51 Drug: SOLU-Medrol (methylPrednisoLONE) 125 mg Route: IVP; Site: right antecubital; kd3 05:09 Drug: Banana Bag - (NS 0.9% 1000 ml, foLIC Acid 1 mg, Thiamine 100 mg, Multivitamin 1 kd3 amp) Route: IV; Rate: calculated rate; Site: right antecubital; 11:05 Follow up: Response: No adverse reaction; IV Status: Completed infusion; IV Intake: sl2 1000ml 07:35 Drug: Ativan (LORazepam) 1 mg Route: IVP; Site: right hand; bb 08:06 CANCELLED (Duplicate Order): Ativan (LORazepam) 1 mg IVP once bb 08:10 Drug: Xopenex (levalbuterol) 1.25 mg Route: Inhalation; sl2 11:09 Follow up: Response: No adverse reaction sl2 08:10 Drug: AtroVENT (ipratropium) Aerosol 0.5 mg Route: Inhalation; sl2 11:08 Follow up: Response: No adverse reaction sl2 09:10 Drug: Xopenex (levalbuterol) 2.5 mg Route: Inhalation; sl2 11:05 Follow up: Response: No adverse reaction sl2 09:11 Drug: Pepcid (famotidine) 20 mg Route: IVP; Site: left hand; sl2 11:05 Follow up: Response: No adverse reaction sl2 09:13 Drug: Magnesium Sulfate 2 grams Route: IM; Site: Other; sl2 11:30 Follow up: Response: No adverse reaction sl2 09:15 Drug: Zosyn (piperacillin-tazobactam) 3.375 grams Route: IVPB; Infused Over: 60 mins; sl2 Site: left hand; 11:06 Follow up: Response: No adverse reaction; IV Status: Completed infusion; IV Intake: sl2 100ml 10:45 Drug: Ativan (LORazepam) 1 mg Route: IVP; Site: left hand; sl2 11:04 Follow up: Response: No adverse reaction sl2 10:45 Drug: Ativan (LORazepam) 1 mg Route: IVP; Site: left hand; sl2 11:02 Follow up: Response: No adverse reaction sl2 11:04 Follow up: Response: No adverse reaction sl2 Intake: 11:05 IV: 1000ml; Total: 1000ml. sl2 11:06 IV: 100ml; Total: 1100ml. 2 Outcome: 08:53 Decision to Hospitalize by Provider. [facility] 14:26 Eloped from patient exam room. [facility] 14:31 Patient left the ED. 2 Signatures: Dispatcher [employer] EDMS Bg Briones MD MD cha Ballard, Brenda, BRIGETTE RN bb Renetta Maria RN RN 1 Jenniffer Foster 5 Emily Nuñez Maurice, MD MD 7 Jessica Navarrete RN RN sl2 Polly Guzman RN RN kd3
[2021-10-07] MEDS ORDERED: NA CHLORIDE 0.9% 100 ML ONE (09:05)
[2021-10-07] MEDS ORDERED: Magnesium Sulfate 2gm IVPB 2 G/50 ML BAG IV ONE (09:06)
[2021-10-07] MEDS ORDERED: FAMOTIDINE 20 MG/2 ML VIAL IV ONE (09:06)
[2021-10-07] MEDS ORDERED: PIPERACIL/TAZO 3.375 GM VIAL IV ONE (09:06)
[2021-10-07 09:07] LABS: Arterial Blood Carboxyhemoglob 3.6 % (0-1.5); Blood Gas Oxyhemoglobin 92.3 % (94-97); Blood O2 Saturation 96.7 % (92-98.5)
--- NOTE | 2021-10-07 10:13 | RAD REPORT ---
EXAM DESCRIPTION: RAD - Chest Single View - 10/07/2021 4:56 am CLINICAL HISTORY: SOB COMPARISON: January 03 TECHNIQUE: AP portable chest image was obtained 10/07/2021 4:56 am . FINDINGS: No mass or consolidation of the lung parenchyma. No failure or volume overload findings. B dejah habitus, portable technique and lordotic positioning accentuate chest findings particularly in th e right base. An acute right lung base finding is unlikely. Heart and vasculature are normal. No richard urable pleural effusion and no pneumothorax. No acute bony abnormality seen. No acute aortic findings suspected. IMPRESSION: No acute cardiopulmonary process. No significant change from comparison study.
[2021-10-07 10:26] LABS: Urine Blood Trace-intact (Negative); Urine Glucose Negative (Negative); Urine Protein Negative (Negative); Urine pH 5.5 (5.0-7.0)
[2021-10-07] MEDS ORDERED: ONDANSETRON 4 MG/2 ML VIAL IV PRN (10:43)
[2021-10-07] MEDS ORDERED: ACETAMINOPHEN 500 MG TAB PO PRN (10:43)
[2021-10-07 10:47] LABS: Barbiturates NEGATIVE (NEGATIVE); Benzodiazepines NEGATIVE (NEGATIVE); Cocaine NEGATIVE (NEGATIVE); METHAMPHETAM NEGATIVE (NEGATIVE); Methadone NEGATIVE (NEGATIVE); Opiates NEGATIVE (NEGATIVE); Phencyclidine NEGATIVE (NEGATIVE); THC Cannibis NEGATIVE (NEGATIVE)
[2021-10-07] MEDS ORDERED: LORazepam 2 MG/ML VIAL IV PRN (10:48)
[2021-10-07] MEDS ORDERED: FLUMAZENIL 0.1 MG/ML (5 mL VIAL) IV PRN (10:48)
--- NOTE | 2021-10-07 10:53 | P.HP ---
Certification for Inpatient Patient admitted to: Inpatient With expected LOS: >2 Midnights Practitioner: I am a practitioner with admitting privileges, knowledge of patient current condition, hospital course, and medical plan of care. Services: Services provided to patient in accordance with Admission requirements found in Title 42 Section 412.3 of the Code of Federal Regulations Patient History Date of Service: 10/07/21 Reason for admission: COPD exacerbation, alcohol withdrawal History of Present Illness: 51-year-old with HTN, COPD, alcoholism. Presents to ED due to progressively worsening shortness of breath over the last 2-3 days. Patient states she has been having difficulty catching his breath, ears himself wheezing, and his inhalers at home were not helping. He states he quit drinking alcohol many years ago, but picked it up again 3 weeks ago and has been binge drinking since then. Last drink 12 hours ago. He is feeling shaky. Denies fever/chills, having some slight nausea, but no vomiting. No abdominal pain, no diarrhea, no change in urinary habits. In the ED, patient noted to be very tachypneic and tachycardic. He was given nebulizers and steroids with some improvement. However he still remained tachycardic/tachypneic with increased work of breathing, so ER physician requested the patient be brought into the hospital. Patient was also noted to be tremulous with elevated blood pressure, and signs of early alcohol withdrawal. Patient stated he does not plan on continuing to drink alcohol. He was given Ativan in the ER with some improvement. Allergies Lisinopril Allergy (Mild, Uncoded 03/19/21 08:09) Shortness of breath BC powder Allergy (Uncoded 03/19/21 08:09) Hives Home Medications: Thiamine Mononitrate (Vit B1) [Vitamin B-1] 1 tab PO BID 07/19/18 Esomeprazole Mag Trihydrate [Nexium] 1 tab PO DAILY 02/13/19 Amlodipine [Norvasc*] 5 mg PO DAILY 01/03/21 Budesonide/Formoterol Fumarate [Symbicort 160-4.5 Mcg Inhaler] 2 puff IH BID 01/03/21 Spironolactone [Aldactone*] 50 mg PO DAILY 01/03/21 Tiotropium Climax [Spiriva] 18 mcg IH DAILY PRN 01/03/21 Albuterol Neb [Proventil 0.083% Neb Soln] 2.5 mg NEB [id number] PRN #120 amp 01/04/21 Nebulizer [Aeroneb Go Nebulizer] 1 each MC TID #1 each 01/04/21 predniSONE [Prednisone] 40 mg PO DAILY #5 tablet 01/04/21 LORazepam [Lorazepam] 1 tab PO DAILY 03/21/21 Naltrexone HCl Dihydrate 50 gm PO DAILY 03/21/21 predniSONE [Prednisone] 2 tab PO DAILY 03/21/21 - Past Medical/Surgical History Diabetic: No -: Hypertension -: COPD on chronic steroids -: Tobacco abuse -: Alcohol abuse -: GERD -: Obesity -: 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 - Family History Mother -: Diabetes, Cancer Notes: colon cancer Father -: Lung disease Notes: COPD - Social History Alcohol use: Yes CD- Drugs: No Caffeine use: Yes Place of Residence: Home Review of Systems 10-point ROS is otherwise unremarkable Physical Examination - Physical Exam General: Alert, Oriented x3, Mild distress HEENT: PERRLA, Sclerae nonicteric Respiratory: Diminished (Bases bilaterally), Expiratory wheezes Cardiovascular: No murmurs, Irregular heart rate/rhythm (Sinus tachycardia) Gastrointestinal: Soft and benign, Non-distended, No tenderness Musculoskeletal: No erythema, No tenderness Integumentary: No rashes, No significant lesion Neurological: Normal speech, Normal strength at 5/5 x4 extr, Normal affect (Slightly anxious appearing, tremulous) - Studies Laboratory Data (last 24 hrs) 10/07/21 04:36: WBC 10.20, Hgb 17.2, Hct 50.5 H, Plt Count 255 10/07/21 04:34: PT 10.3, INR 0.90 10/07/21 04:34: Sodium 137, Potassium 4.1, BUN 4 L, Creatinine 0.77, Glucose 119 H, Magnesium 2.0 D, Total Bilirubin 0.5, AST 53 H, ALT 55, Alkaline Phosphatase 68 Assessment and Plan - Advance Directives Does patient have a Living Will: No Does patient have a Durable POA for Healthcare: No Physician Review Additional Text: Problem list Acute on chronic COPD exacerbation Alcohol withdrawal History of alcohol dependence/abuse Hypertension GERD Nicotine dependence Admit patient to ICU Continue COPD treatment, prednisone, nebs, oxygen if needed. Pulmonology consulted Confirm home medications and restart as appropriate Patient appears to be going through alcohol withdrawal Alcohol withdrawal assessment ordered, benzodiazepines ordered Will need close monitoring in the ICU Nicotine patch Confirm home antihypertensives, restart, may need further medication VTE: Lovenox Code: Full Dispo: Anticipate DC home in 2-3 days Time Spent Managing Pts Care (In Minutes): 60
[2021-10-07] MEDS ORDERED: LORazepam 2 MG/ML VIAL IV SCH (11:00)
[2021-10-07 11:29] LABS: Thyroid Stimulating Hormone 1.71 uIU/mL (0.360-3.740)
[2021-10-07] MEDS ORDERED: LEVALBUTEROL 0.63 MG/3 ML NEB NEB SCH (14:00)
[2021-10-07] MEDS ORDERED: IPRATROPIUM BROM 0.5MG/2.5ML NEB SCH (14:00)
[2021-10-07] MEDS ORDERED: LEVALBUTEROL 0.63 MG/3 ML NEB ONE (14:46)
[2021-10-07 15:10] VITALS: O2SAT 96
[2021-10-07 15:12] VITALS: BP 167/94; TEMP 98.4
[2021-10-07] MEDS ORDERED: HYDRALAZINE HCL 20 MG/ML VIAL IV PRN (15:34)
[2021-10-07] MEDS ORDERED: AMLODIPINE 5 MG TAB PO ONE (17:00)
[2021-10-07] MEDS ORDERED: predniSONE 20 MG TAB PO SCH (21:00)
[2021-10-08] MEDS ORDERED: FOLIC ACID 1 MG, MULTIVITAMINS INJ 10 ML, THIAMINE HCL 100 MG in NA CHLORIDE 0.9% 1,000 ML IV SCH (09:00)
[2021-10-08] MEDS ORDERED: ENOXAPARIN 40 MG/0.4 ML SQ SCH (09:00)
[2021-10-08] MEDS ORDERED: AMLODIPINE 5 MG TAB PO SCH (09:00)
== END 2021-10-07 14:00 | disposition left against medical advice (07) | DRG 191 ==
LOC: ER 04:13 → ERHOLD 10:42
PROVIDERS: ADMIT Hospitalist; ATTEND Hospitalist
DX: J44.1 Chronic obstructive pulmonary disease with (acute) exacerbation (principal); F10.139 Alcohol abuse with withdrawal, unspecified; I10 Essential (primary) hypertension; F17.210 Nicotine dependence, cigarettes, uncomplicated; K21.9 Gastro-esophageal reflux disease without esophagitis; E66.9 Obesity, unspecified; R00.0 Tachycardia, unspecified; Z89.022 Acquired absence of left finger(s); Z53.29 Procedure and treatment not carried out because of patient's decision for other reasons; Z88.8 Allergy status to other drugs, medicaments and biological substances; Z71.6 Tobacco abuse counseling; Z68.36 Body mass index [BMI] 36.0-36.9, adult; Z79.52 Long term (current) use of systemic steroids; Z79.899 Other long term (current) drug therapy; Z20.822 Contact with and (suspected) exposure to COVID-19
CPT/HCPCS: 0240U; 36415; 71045; 71275; 80048; 80076; 80307; 80320; 81003; 82805; 83735; 83880; 84439; 84443; 84484; 85025; 85610; 87040; 87205; 93005; 96372; 99285; J2543; J2930; J3411; J3475; J7030; Q9967

== ENCOUNTER 2021-10-17 04:41 | Emergency (ER) | payer BC ==
--- OUTSIDE RECORDS SUMMARY | 2021-10-17 04:44 | XMS REPORT | Continuity of Care Document ---
:1970 Author Organization [facility] t Address [address] [place] [address] Dr. Zhou [address] [place] [id number] Care Team Providers Name Role Phone Raul SUNG Attending Clinician Simi ADAMS Attending Clinician Unavailable Problems This patient has no known problems. Allergies, Adverse Reactions, Alerts Allergy Allergy Status Severity Reaction(s) Onset Inactive Treating Comm ents Source Name Type Date Date Clinician LISINOPR DRUG Active Anaphylaxis Uni vers [place] INGREDI 5-16 ity of 00:00: [address] Medications This patient has no known medications. Procedures This patient has no known procedures. Encounters Start End Encounter Admission Attending Care Care Encounter Source Date/Time Date/Time Type Type Clinicians Facility Department ID 2021-02-03 2021-02-03 Outpatient Sarika SUNG [facility] [id number] Univers 11:10:00 11:10:00 DENISE [facility] 2021-01-13 2021-01-13 Outpatient [facility] [id number] Univers 11:20:00 11:20:00 [facility] 2020-11-10 2020-11-10 Outpatient Sarika ADAMS [facility] [id number] Univers 08:20:00 08:20:00 KARLEY [facility] Results This patient has no known results.
[2021-10-17] MEDS ORDERED: EPINEPHRINE/PF 1 MG/ML AMP ONE (04:56)
[2021-10-17] MEDS ORDERED: DIPHENHYDRAMINE 50 MG/ML VIAL ONE (05:02)
[2021-10-17] MEDS ORDERED: METHYLPREDNISOLONE 125 MG INJ ONE (05:02)
[2021-10-17] MEDS ORDERED: FAMOTIDINE 20 MG/2 ML VIAL IV ONE (05:03)
--- NOTE | 2021-10-17 08:31 | ER ---
Nurse's Notes [facility] Name: Randy Briones Age: 51 yrs Sex: Male : 1970 Arrival Date: 10/17/2021 Time: 04:45 Bed 20 Private MD: Diagnosis: Allergic Reaction Presentation: 10/17 04:50 Chief complaint: Patient states: I think I am having an allergic reaction I started bb itching all over after work last night and when I woke up and took my Cpap off my face was swollen. It feels like my tongue is swollen. Coronavirus screen: At this time, the client does not indicate any symptoms associated with coronavirus-19. Ebola Screen: No symptoms or risks identified at this time. Initial Sepsis Screen: Does the patient meet any 2 criteria? No. Patient's initial sepsis screen is negative. Does the patient have a suspected source of infection? No. Patient's initial sepsis screen is negative. Risk Assessment: Do you want to hurt yourself or someone else? Patient reports no desire to harm self or others. Onset of symptoms was October 16, 2021. 04:50 Method Of Arrival: Ambulatory bb 04:50 Acuity: CANDACE 2 bb Triage Assessment: 05:21 General: Appears uncomfortable, Behavior is cooperative, anxious. Pain: Complains of bb pain in all over. Respiratory: Onset: The symptoms/episode began/occurred yesterday. Respiratory: Reports shortness of breath the patient has mild shortness of breath. Derm:. Historical: - Allergies: 05:14 Lisinopril; bb - Home Meds: 05:14 Advair Diskus 250-50 mcg/dose Inhl dsdv 1 puff 2 times per day [Active]; albuterol bb sulfate 2.5 mg /3 mL (0.083 %) Inhl nebu 3 mL 3 times per day [Active]; gabapentin 100 mg Oral cap 3 caps 3 times per day [Active]; montelukast 10 mg Oral tab 1 tab once daily [Active]; Nexium 40 mg Oral cpDR 1 cap 2 times per day [Active]; Norvasc 10 mg Oral tab once daily [Active]; Spiriva with HandiHaler inhalation [Active]; Triamterene-Hydrochlorothiazid Oral once daily [Active]; - PMHx: 05:14 Alcoholism; COPD; Hypertension; bb - PSHx: 05:14 Amputation of left index finger; bb - Immunization history:: Adult Immunizations up to date, Client reports receiving the 2nd dose of the Covid vaccine, Pfizer. - Social history:: Smoking status: Patient reports the use of cigarette tobacco products, smokes 1.5 packs per day, Patient uses alcohol. - Family history:: not pertinent. - Hospitalizations: : No recent hospitalization is reported. Screenin:50 Abuse screen: Denies threats or abuse. Nutritional screening: No deficits noted. bb Tuberculosis screening: No symptoms or risk factors identified. Fall Risk None identified. Assessment: 04:50 General: Appears uncomfortable, obese, Behavior is cooperative, anxious. General: bb Reports Itching all over and swelling to the face since yesterday. Pain: Complains of pain in all over. Neuro: Level of Consciousness is awake, alert, obeys commands, Oriented to person, place, time, situation. Cardiovascular: Heart tones S1 S2 present Capillary refill < 3 seconds Patient's skin is warm and dry. Rhythm is sinus tachycardia. Respiratory: Airway is patent Respiratory effort is unlabored, Breath sounds are coarse bilaterally. GI: No signs and/or symptoms were reported involving the gastrointestinal system. Derm: urticaria to abdomen, skin erythematous. Musculoskeletal: Circulation, motion, and sensation intact. 06:00 Reassessment: pt appears to be sleeping, eyes closed, resp unlabored, edema to face bb lessened. 08:26 Reassessment: Patient reports that he is feeling better and would like to leave Patient jg9 states feeling better. Derm: flushed face and chest, mild swelling noted to face. Vital Signs: 04:50 BP 136 / 99; Pulse 112; Resp 18 S; Temp 97.7(O); Pulse Ox 95% on R/A; Weight 96.16 kg bb (R); Height 5 ft. 4 in. (162.56 cm) (R); 05:01 BP 125 / 83; Pulse 112; Resp 16; Temp 98.3(TE); Pulse Ox 96% ; lt3 05:43 Pulse 89; rn 06:54 BP 132 / 83; Pulse 94; Resp 16; Temp 98.8(TE); Pulse Ox 92% ; lt3 07:00 BP 138 / 82; Pulse 96; Resp 20; Pulse Ox 96% on R/A; jg9 07:45 BP 143 / 76; Pulse 88; Resp 20 S; Pulse Ox 91% on R/A; jg9 08:15 BP 155 / 98; Pulse 84; Resp 17; Pulse Ox 94% on R/A; jg9 04:50 Body Mass Index 36.39 (96.16 kg, 162.56 cm) bb ED Course: 04:45 Patient arrived in ED. wm 04:47 Dheeraj Thibodeaux MD is Attending Physician. 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 04:50 Patient has correct armband on for positive identification. Placed in gown. Bed in low bb position. Call light in reach. Side rails up X 1. 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 Pulse ox on. NIBP on. Warm blanket given. 05:[address] RN is Primary Nurse. bb 05:01 Inserted saline lock: 20 gauge in right antecubital area, using aseptic technique. lt3 05:14 Triage completed. bb 06:44 Octavio Crow PA is PHCP. jmm 07:28 Appears to be sleeping. Awaiting disposition. jg9 08:28 Primary Nurse role handed off by Seda Street RN bd 08:37 Beatriz Gifford is Primary Nurse. jg9 08:43 No provider procedures requiring assistance completed. jg9 08:43 IV discontinued. jg9 Administered Medications: 05:01 Drug: EPINEPHrine 1mg/mL 1:1,000 0.3 ml Route: Sub-Q; Site: left upper arm; bb 08:37 Follow up: Response: No adverse reaction; Marked relief of symptoms jg9 05:04 Drug: Benadryl (diphenhydrAMINE) 50 mg Route: IVP; Site: right antecubital; bb 07:00 Follow up: Response: No adverse reaction; Marked relief of symptoms jg9 05:06 Drug: Pepcid (famotidine) 20 mg Route: IVP; Site: right antecubital; bb 07:00 Follow up: Response: No adverse reaction; Marked relief of symptoms jg9 05:08 Drug: SOLU-Medrol (methylPrednisoLONE) 125 mg Route: IVP; Site: right antecubital; bb 07:00 Follow up: Response: No adverse reaction; Marked relief of symptoms jg9 Outcome: 08:30 Discharge ordered by MD. dean 08:43 Discharged to home ambulatory. jg9 08:43 Condition: improved 08:43 Discharge instructions given to patient, Instructed on discharge instructions, follow up and referral plans. Demonstrated understanding of instructions, follow-up care, medications, Prescriptions given X 2. 08:44 Patient left the ED. jg9 Signatures: Leticia Alvarez Joel, PA PA jmm Ballard, Brenda, RN RN Dheeraj Bland MD MD rn Marsh, Wendy wm Tran, Leah Beatriz Steinberg jg9
--- NOTE | 2021-10-17 08:31 | EDPHYS ---
Physician Documentation [facility] Name: Randy Briones Age: 51 yrs Sex: Male : 1970 Arrival Date: 10/17/2021 Time: 04:45 Bed 20 Private MD: ED Physician Dheeraj Thibodeaux HPI: 10/17 04:56 This 51 yrs old Male presents to ER via Unassigned with complaints of Breathing rn Difficulty. 04:56 The patient presents with itching, localized swelling, rash, swelling of the lips. rn Onset: The symptoms/episode began/occurred just prior to arrival. Associated signs and symptoms: Pertinent positives: hives, Pertinent negatives: abdominal pain, chest pain, vomiting. Possible causes: The patient has no known obvious cause for the symptoms. At home the patient or guardian has treated the symptoms with nothing. Severity of symptoms: At their worst the symptoms were moderate in the emergency department the symptoms are unchanged. The patient has not experienced similar symptoms in the past. The patient has not recently seen a physician. Patient reports went to bed feeling fine, fell asleep with CPAP machine, woke up with hives and itching all over, now reports some swelling of his lips and some shortness of breath. Reports when he is at a new worksite yesterday but does not think was in contact with anything different. Denies any new medication or exposures. Does not know if he got bit by anything. Historical: - Allergies: 05:14 Lisinopril; bb - Home Meds: 05:14 Advair Diskus 250-50 mcg/dose Inhl dsdv 1 puff 2 times per day [Active]; albuterol bb sulfate 2.5 mg /3 mL (0.083 %) Inhl nebu 3 mL 3 times per day [Active]; gabapentin 100 mg Oral cap 3 caps 3 times per day [Active]; montelukast 10 mg Oral tab 1 tab once daily [Active]; Nexium 40 mg Oral cpDR 1 cap 2 times per day [Active]; Norvasc 10 mg Oral tab once daily [Active]; Spiriva with HandiHaler inhalation [Active]; Triamterene-Hydrochlorothiazid Oral once daily [Active]; - PMHx: 05:14 Alcoholism; COPD; Hypertension; bb - PSHx: 05:14 Amputation of left index finger; bb - Immunization history:: Adult Immunizations up to date, Client reports receiving the 2nd dose of the Covid vaccine, Pfizer. - Social history:: Smoking status: Patient reports the use of cigarette tobacco products, smokes 1.5 packs per day, Patient uses alcohol. - Family history:: not pertinent. - Hospitalizations: : No recent hospitalization is reported. ROS: 04:56 Constitutional: Negative for fever, chills, and weight loss, Eyes: Negative for injury, rn pain, redness, and discharge, ENT: Positive for lip swelling Neck: Negative for injury, pain, and swelling, Cardiovascular: Negative for chest pain, palpitations, and edema, Respiratory: Positive for shortness of breath Abdomen/GI: Negative for abdominal pain, nausea, vomiting, diarrhea, and constipation, Back: Negative for injury and pain, MS/Extremity: Negative for injury and deformity, Skin: Positive for hives and itching Neuro: Negative for headache, weakness, numbness, tingling, and seizure. Exam: 04:56 Constitutional: This is a well developed, well nourished patient who is awake, alert, rn appears anxious Head/Face: atraumatic. Eyes: Periorbital areas with no swelling, redness, or edema. ENT: Swollen lips, no swollen tongue, no stridor, handling secretions well Neck: Trachea midline, no masses palpated Cardiovascular: Tachycardic, regular Respiratory: Mild tachypnea, no retractions, no stridor Abdomen/GI: Soft, non-tender Skin: Warm, dry, diffuse urticaria with excoriations MS/ Extremity: Pulses equal, no cyanosis. Neurovascular intact. Full, normal range of motion. Equal circumference. Neuro: Awake and alert, GCS 15, oriented to person, place, time, and situation. Cranial nerves II-XII grossly intact. Motor strength 5/5 in all extremities. Sensory grossly intact. Cerebellar exam normal. Normal gait. Vital Signs: 04:50 BP 136 / 99; Pulse 112; Resp 18 S; Temp 97.7(O); Pulse Ox 95% on R/A; Weight 96.16 kg bb (R); Height 5 ft. 4 in. (162.56 cm) (R); 05:01 BP 125 / 83; Pulse 112; Resp 16; Temp 98.3(TE); Pulse Ox 96% ; lt3 05:43 Pulse 89; rn 06:54 BP 132 / 83; Pulse 94; Resp 16; Temp 98.8(TE); Pulse Ox 92% ; lt3 07:00 BP 138 / 82; Pulse 96; Resp 20; Pulse Ox 96% on R/A; jg9 07:45 BP 143 / 76; Pulse 88; Resp 20 S; Pulse Ox 91% on R/A; jg9 08:15 BP 155 / 98; Pulse 84; Resp 17; Pulse Ox 94% on R/A; jg9 04:50 Body Mass Index 36.39 (96.16 kg, 162.56 cm) bb MDM: 04:47 Patient medically screened. rn 05:43 ED course: Patient appears better clinically, has normalization of vital signs, lower rn lip seems less swollen, no stridor. We will continue to observe.. 06:28 ED course: Pt continues to improve, resting comfortably. rn 08:30 Data reviewed: vital signs, nurses notes. Counseling: I had a detailed discussion with dianne the patient and/or guardian regarding: the historical points, exam findings, and any diagnostic results supporting the discharge/admit diagnosis, the need for outpatient follow up, to return to the emergency department if symptoms worsen or persist or if there are any questions or concerns that arise at home. 10/17 04:54 Order name: IV Start; Complete Time: 05:01 rn Administered Medications: 05:01 Drug: EPINEPHrine 1mg/mL 1:1,000 0.3 ml Route: Sub-Q; Site: left upper arm; bb 08:37 Follow up: Response: No adverse reaction; Marked relief of symptoms jg9 05:04 Drug: Benadryl (diphenhydrAMINE) 50 mg Route: IVP; Site: right antecubital; bb 07:00 Follow up: Response: No adverse reaction; Marked relief of symptoms jg9 05:06 Drug: Pepcid (famotidine) 20 mg Route: IVP; Site: right antecubital; bb 07:00 Follow up: Response: No adverse reaction; Marked relief of symptoms jg9 05:08 Drug: SOLU-Medrol (methylPrednisoLONE) 125 mg Route: IVP; Site: right antecubital; bb 07:00 Follow up: Response: No adverse reaction; Marked relief of symptoms jg9 Disposition: 19:04 Co-signature as Attending Physician, Dheeraj Thibodeaux MD I agree with the assessment and rn plan of care. Attestation: The patient's history, exam findings, diagnostics, and a summary of any interventions or procedures was reviewed in detail with Octavio BARRERA. 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 rn Disposition Summary: 10/17/21 08:30 Discharge Ordered Location: Home [facility] Condition: Stable [facility] Diagnosis - Allergic Reaction [facility] Followup: [facility] - With: Private Physician - When: 2 - 3 days - Reason: Recheck today's complaints, Continuance of care, Re-evaluation by your physician Discharge Instructions: - Discharge Summary Sheet [facility] - Anaphylactic Reaction, Adult [facility] - Form - Return To Work j9 Forms: - Medication Reconciliation Form [facility] - Thank You Letter [facility] - Antibiotic Education [facility] - Prescription Opioid Use [facility] Prescriptions: - EpiPen 0.3 mg/0.3 mL Injection auto-injector - inject 0.3 milliliter by INTRAMUSCULAR route as directed as needed for [facility] anaphylaxis; 1 Pen Needle; Refills: 0, Product Selection Permitted - Prednisone 20 mg Oral Tablet - take 3 tablets by ORAL route once daily for 5 days; 15 tablet; Refills: 0, [facility] Product Selection Permitted Signatures: Octavio Crow PA PA jmm Ballard, Brenda, RN Dheeraj Roberts MD MD rn Gilmore, Jennifer jg9
[2021-10-17 09:00] VITALS: TEMP 98.8
[2021-10-17 09:05] VITALS: BP 155/98; O2SAT 94
== END 2021-10-17 08:44 | disposition home or self-care (01) ==
LOC: ER 04:41
DX: T78.40XA Allergy, unspecified, initial encounter (principal); X58.XXXA Exposure to other specified factors, initial encounter; J44.9 Chronic obstructive pulmonary disease, unspecified; I10 Essential (primary) hypertension
CPT/HCPCS: 96375; 96372; 96374; 99284; J0171; J1200; J2930

== ENCOUNTER 2021-12-17 04:24 | Inpatient (IN) | payer BC ==
--- OUTSIDE RECORDS SUMMARY | 2021-12-17 04:27 | XMS REPORT | Continuity of Care Document ---
:1970 Author Organization [facility] t Address [address] [place] [address] Dr. Zhou [address] [place] [id number] Care Team Providers Name Role Phone Raul SUNG Attending Clinician Simi ADAMS Attending Clinician Unavailable Problems This patient has no known problems. Allergies, Adverse Reactions, Alerts Allergy Allergy Status Severity Reaction(s) Onset Inactive Treating Comm ents Source Name Type Date Date Clinician LISINOPR DRUG Active [place]aphylaxis Uni vers [place] INGREDI 5-16 ity of 00:00: [address] Medications This patient has no known medications. Procedures This patient has no known procedures. Encounters Start End Encounter Admission Attending Care Care Encounter Source Date/Time Date/Time Type Type Clinicians Facility Department ID 2021-02-03 2021-02-03 Outpatient Sarika SUNG [place] [id number] Univers 11:10:00 11:10:00 DENISE [facility] 2021-01-13 2021-01-13 Outpatient [place] [id number] Univers 11:20:00 11:20:00 [facility] 2020-11-10 2020-11-10 Outpatient Sarika ADAMS [place] [id number] Univers 08:20:00 08:20:00 KARLEY [facility] Results This patient has no known results.
[2021-12-17] MEDS ORDERED: LORazepam 2 MG/ML VIAL ONE ×3 (04:59→07:54)
[2021-12-17] MEDS ORDERED: METHYLPREDNISOLONE 125 MG INJ ONE (04:59)
[2021-12-17] MEDS ORDERED: THIAMINE 200 MG/2 ML INJ ONE (04:59)
[2021-12-17] MEDS ORDERED: LABETALOL HCL 100 MG TAB ONE (05:00)
[2021-12-17] MEDS ORDERED: IPRATROPIUM BROM 0.5MG/2.5ML ONE (05:00)
[2021-12-17] MEDS ORDERED: LABETALOL 20 MG/4ML SYRINGE IV ONE (05:00)
[2021-12-17] MEDS ORDERED: LEVALBUTEROL 1.25 MG/3 ML NEB ONE (05:00)
[2021-12-17] MEDS ORDERED: FAMOTIDINE 20 MG/2 ML VIAL IV ONE (05:01)
[2021-12-17] MEDS ORDERED: FOLIC ACID 5 MG/ML VIAL ONE (05:01)
[2021-12-17] MEDS ORDERED: MULTIVITAMINS 10 ML VIAL (INJ) IV ONE (05:01)
[2021-12-17] MEDS ORDERED: NA CHLORIDE 0.9% 50 ML ONE (05:02)
[2021-12-17] MEDS ORDERED: NA CHLORIDE 0.9% 2,000 ML ONE (05:02)
[2021-12-17] MEDS ORDERED: Magnesium Sulfate 2gm IVPB 2 G/50 ML BAG IV ONE (05:02)
[2021-12-17 05:04] LABS: Absolute Lymphocytes (CBC) 3.4 K/uL (0.7-4.9); Hematocrit 50.1 % (39.6-49.0); Lymphocytes % 28.4 % (15.3-44.8); MPV 6.2 fL (7.6-11.3); RBC Red Blood Cell Count 4.92 M/uL (4.33-5.43)
[2021-12-17 05:14] LABS: Protime INR 0.93
[2021-12-17 05:38] LABS: ALT/SGPT 93 U/L (12-78); AST/SGOT 166 U/L (15-37); Albumin 4.2 g/dL (3.4-5.0); Alkaline Phosphatase 74 U/L (45-117); BUN Blood Urea Nitrogen 7 mg/dL (7-18); Bicarbonate 21 mmol/L (21-32); Bilirubin Direct 0.3 mg/dL (0-0.2); Bilirubin Total 0.8 mg/dL (0.2-1.0); Glucose Level 121 mg/dL (74-106); Lipase 119 U/L (73-393); NT PRO-BNP 26 pg/mL (<125); Potassium 3.6 mmol/L (3.5-5.1); Protein, Total 8.2 g/dL (6.4-8.2); Sodium Level 136 mmol/L (136-145)
[2021-12-17] MEDS ORDERED: Levofloxacin500mg IV 500 MG/100 ML BAG IV ONE (05:53)
[2021-12-17] MEDS ORDERED: NA CHLORIDE 0.9% 1,000 ML ONE (06:11)
--- NOTE | 2021-12-17 06:23 | EDPHYS ---
Physician Documentation [facility] Name: Randy Briones Age: 51 yrs Sex: Male : 1970 Arrival Date: 12/17/2021 Time: 04:27 Bed 6 Private MD: Adrianna Michales H ED Physician Bg Briones HPI: 12/17 04:46 This 51 yrs old Male presents to ER via Ambulatory with complaints of akash Breathing Difficulty. 04:46 The patient has shortness of breath at rest, with light activity. Onset: The akash symptoms/episode began/occurred 3 day(s) ago. Historical: - Allergies: 04:33 Lisinopril; tw5 - Home Meds: 04:33 Advair Diskus 250-50 mcg/dose Inhl dsdv 1 puff 2 times per day [Active]; albuterol tw5 sulfate 2.5 mg /3 mL (0.083 %) Inhl nebu 3 mL 3 times per day [Active]; gabapentin 100 mg Oral cap 3 caps 3 times per day [Active]; montelukast 10 mg Oral tab 1 tab once daily [Active]; Nexium 40 mg Oral cpDR 1 cap 2 times per day [Active]; Norvasc 10 mg Oral tab once daily [Active]; Spiriva with HandiHaler inhalation [Active]; Triamterene-Hydrochlorothiazid Oral once daily [Active]; - PMHx: 04:33 Alcoholism; COPD; Hypertension; tw5 - PSHx: 04:33 Amputation of left index finger; tw5 - Immunization history:: Flu vaccine is not up to date. - Social history:: Smoking status: Patient reports the use of cigarette tobacco products, smokes two packs cigarettes per day. Patient uses alcohol, patient/guardian reports recent binge of alcohol consumption. Patient/guardian denies using alcohol. - Family history:: not pertinent. ROS: 04:49 Constitutional: Negative for fever, chills, and weight loss, Eyes: Negative for injury, akash pain, redness, and discharge, ENT: Negative for injury, pain, and discharge, Neck: Negative for injury, pain, and swelling, Abdomen/GI: Negative for abdominal pain, nausea, vomiting, diarrhea, and constipation, Back: Negative for injury and pain, : Negative for injury, bleeding, discharge, and swelling, MS/Extremity: Negative for injury and deformity, Skin: Negative for injury, rash, and discoloration, Neuro: Negative for headache, weakness, numbness, tingling, and seizure, Allergy/Immunology: Negative for hives, rash, and allergies, Endocrine: Negative for neck swelling, polydipsia, polyuria, polyphagia, and marked weight changes, Hematologic/Lymphatic: Negative for swollen nodes, abnormal bleeding, and unusual bruising. 04:49 Cardiovascular: Positive for chest pain, palpitations. 04:49 Respiratory: Positive for cough, shortness of breath, wheezing, expiratory. 04:49 Abdomen/GI: Positive for abdominal distension. Exam: 04:49 Constitutional: This is a well developed, well nourished patient who is awake, alert, akash and in no acute distress. Head/Face: Normocephalic, atraumatic. Eyes: Pupils equal round and reactive to light, extra-ocular motions intact. Lids and lashes normal. Conjunctiva and sclera are non-icteric and not injected. Cornea within normal limits. Periorbital areas with no swelling, redness, or edema. ENT: Nares patent. No nasal discharge, no septal abnormalities noted. Tympanic membranes are normal and external auditory canals are clear. Oropharynx with no redness, swelling, or masses, exudates, or evidence of obstruction, uvula midline. Mucous membranes moist. Neck: Trachea midline, no thyromegaly or masses palpated, and no cervical lymphadenopathy. Supple, full range of motion without nuchal rigidity, or vertebral point tenderness. No Meningismus. Chest/axilla: Normal chest wall appearance and motion. Nontender with no deformity. No lesions are appreciated. Back: No spinal tenderness. No costovertebral tenderness. Full range of motion. Male : Normal genitalia with no discharge or lesions. Skin: Warm, dry with normal turgor. Normal color with no rashes, no lesions, and no evidence of cellulitis. MS/ Extremity: Pulses equal, no cyanosis. Neurovascular intact. Full, normal range of motion. Neuro: Awake and alert, GCS 15, oriented to person, place, time, and situation. Cranial nerves II-XII grossly intact. Motor strength 5/5 in all extremities. Sensory grossly intact. Cerebellar exam normal. Normal gait. Psych: Awake, alert, with orientation to person, place and time. Behavior, mood, and affect are within normal limits. 04:49 Cardiovascular: Rate: tachycardic, Rhythm: regular, Pulses: Pulses are 4+ in bilateral radial, brachial, femoral, popliteal, posterior tibial and and dorsalis pedis arteries.. Heart sounds: normal, Edema: is not appreciated, JVD: is not appreciated. 04:49 Respiratory: mild respiratory distress is noted, Respirations: labored breathing, that is mild, Breath sounds: bronchial sounds, that are moderate, are scattered, decreased breath sounds, that are mild, are scattered, rhonchi, that are mild, are scattered, stridor, is not appreciated, + upper airway congestion. wheezing: expiratory is heard diffusely, Respiratory rate: 22 04:49 Abdomen/GI: Inspection: distension, Bowel sounds: normal, Palpation: nontender, Liver: no appreciated palpable abnormalities, Hernia: not appreciated. 06:16 ECG was reviewed by the Attending Physician. akash Vital Signs: 04:31 BP 164 / 148; Pulse 128; Resp 24; Temp 98.1; Pulse Ox 97% on R/A; Weight 98.43 kg; tw5 Height 5 ft. 4 in. (162.56 cm); Pain 0/10; 04:45 BP 122 / 107; Pulse 123; Resp 16; Pulse Ox 95% ; lt3 04:48 BP 173 / 129; Pulse 122; Resp 22 S; Pulse Ox 94% on R/A; al4 05:19 BP 162 / 122; Pulse 110; Resp 15; Pulse Ox 95% ; lt3 05:30 BP 173 / 114; Pulse 103; Resp 18; Pulse Ox 95% ; lt3 05:45 BP 152 / 95; Pulse 87; Resp 14 S; Pulse Ox 98% on R/A; al4 06:00 BP 135 / 84; Pulse 89; Resp 20 S; Pulse Ox 97% on R/A; al4 07:57 BP 141 / 85; Pulse 103; Resp 22; Pulse Ox 95% on R/A; ph 09:44 BP 165 / 93; Pulse 108; Resp 20; Pulse Ox 95% ; vg1 04:31 Body Mass Index 37.25 (98.43 kg, 162.56 cm) tw5 MDM: 04:35 Patient medically screened. akash 04:52 Differential diagnosis: Anemia Anxiety Reaction asthma, Bronchitis CHF exacerbation, akash Chronic Obstructive Pulmonary Disease Myocardial Infarction pulmonary edema, reactive airway disease, Unstable Angina. Antibiotic administration: Levaquin given. The patient's Wells Deep Vein Thrombosis Score was calculated as follows: Heart Rate >100 BPM (1.5 Pts) Total Score: 0-2 Pts- Low Risk. The patient's pulmonary embolism risk score was calculated as follows: the patients heart rate is greater than 100 beats per minute (1.5 Pts) Total Score: 0-2 points. This patient was found to be at low risk for a pulmonary embolism by using the Well's assessment criteria. Immunization status: Influenza vaccine: Not up to date. Data reviewed: vital signs, nurses notes, lab test result(s), EKG, radiologic studies, plain films. Data interpreted: traffic monitor specialist: rate is 122 beats/min, rhythm is normal sinus rhythm, regular, Pulse oximetry: on room air is 94 %. Test interpretation: by ED physician or midlevel provider: ECG, plain radiologic studies. Counseling: I had a detailed discussion with the patient and/or guardian regarding: the presence of at least one elevated blood pressure reading (>120/80) during this emergency department visit, lab results, the need for further work-up and treatment in the hospital. 12/17 04:45 Order name: CBC with Diff 12/17 04:45 Order name: LFT's 12/17 04:45 Order name: Magnesium 12/17 04:45 Order name: NT PRO-BNP 12/17 04:45 Order name: PT-INR; Complete Time: 05:52 12/17 04:45 Order name: Troponin HS 12/17 04:45 Order name: Acetaminophen 12/17 04:45 Order name: ETOH Level; Complete Time: 05:52 12/17 04:45 Order name: Ptt, Activated; Complete Time: 05:52 12/17 04:45 Order name: Salicylate; Complete Time: 05:52 12/17 04:45 Order name: Urine Drug Screen 12/17 04:45 Order name: BMP 12/17 04:45 Order name: SARS-COV-2 RT PCR (Document "Date of Onset" if Symptomatic); Complete Time: [facility] 12/17 04:46 Order name: Lipase 12/17 04:46 Order name: CBC with Automated Diff; Complete Time: 05:52 EDMS 12/17 04:46 Order name: Liver (Hepatic) Function EDMS 12/17 04:46 Order name: Magnesium EDMS 12/17 04:46 Order name: NT PRO-BNP EDMS 12/17 04:54 Order name: Blood Culture Adult (2) akash 12/17 04:54 Order name: Lactate; Complete Time: 06:04 akash 12/17 07:26 Order name: Urine Dipstick-Ancillary EDMS 12/17 09:16 Order name: Lactate Sepsis 2 HR Follow-up EDMS 12/17 10:26 Order name: Comprehensive Metabolic Panel EDMS 12/17 10:26 Order name: Comprehensive Metabolic Panel EDMS 12/17 10:26 Order name: Protime (+INR) EDMS 12/17 10:27 Order name: CBC with Automated Diff EDMS 12/17 10:27 Order name: CBC with Automated Diff EDMS 12/17 10:27 Order name: Protime (+INR) EDMS 12/17 10:27 Order name: PTT, Activated Partial Thromb EDMS 12/17 10:27 Order name: PTT, Activated Partial Thromb EDMS 12/17 04:45 Order name: XRAY Chest (1 view) akash 12/17 04:45 Order name: EKG; Complete Time: 04:46 akash 12/17 04:45 Order name: Cardiac monitoring; Complete Time: 04:49 akash 12/17 04:45 Order name: EKG - Nurse/Tech; Complete Time: 05:45 akash 12/17 04:45 Order name: IV Saline Lock; Complete Time: 04:49 akash 12/17 04:45 Order name: Labs collected and sent; Complete Time: 05:45 akash 12/17 04:45 Order name: O2 Per Protocol; Complete Time: 04:49 akash 12/17 04:45 Order name: O2 Sat Monitoring; Complete Time: 04:49 akash 12/17 04:45 Order name: Suicide Screening ([place]); Complete Time: 06:19 akash 12/17 04:45 Order name: Urine Dipstick-Ancillary (obtain specimen); Complete Time: 07:26 akash 12/17 04:45 Order name: IV Saline Lock - Large Bore; Complete Time: 06:13 akash 12/17 05:30 Order name: Vital Signs; Complete Time: 05:47 akash 12/17 08:05 Order name: Diet Heart Healthy; Complete Time: 08:06 ph EC:16 Rate is 112 beats/min. Rhythm is regular. QRS [place] is Normal. [place] interval is normal. akash QRS interval is normal. QT interval is normal. No Q waves. T waves are Normal. T waves are Inverted in leads V1, V2, V3, V4, V5, V6. ST Segment is depressed in leads I, II, III, aVF. Clinical impression: NSR w/ Non-specific ST/T Changes. Interpreted by me. Reviewed by me. Administered Medications: 05:10 Drug: Banana Bag - (NS 0.9% 1000 ml, foLIC Acid 1 mg, Thiamine 100 mg, Multivitamin 1 al4 amp) Route: IV; Rate: 125 ml/hr; Site: left wrist; 05:10 Drug: Magnesium Sulfate 2 grams Route: IVPB; Infused Over: 2 hrs; Site: right al4 antecubital; 06:36 Follow up: Response: No adverse reaction al4 09:50 Follow up: IV Status: Completed infusion vg1 05:10 Drug: Thiamine 100 mg Route: IV; Rate: bolus; Site: left wrist; al4 06:00 Follow up: Response: No adverse reaction al4 05:13 Drug: NS 0.9% 1000 ml Route: IV; Rate: 1 bolus; Site: right antecubital; al4 09:35 Follow up: IV Status: Completed infusion; IV Intake: 1000ml vg1 05:13 Drug: Labetalol 100 mg Route: PO; al4 06:00 Follow up: Response: No adverse reaction al4 05:24 Drug: Labetalol 20 mg Route: IVP; Infused Over: 2 mins; Site: left wrist; al4 06:00 Follow up: Response: No adverse reaction al4 05:30 Drug: Pepcid (famotidine) 20 mg Route: IVP; Site: left wrist; al4 06:00 Follow up: Response: No adverse reaction al4 05:30 Drug: Ativan (LORazepam) 1 mg Route: IVP; Site: right antecubital; al4 06:00 Follow up: Response: No adverse reaction al4 05:30 Drug: SOLU-Medrol (methylPrednisoLONE) 125 mg Route: IVP; Site: left wrist; al4 06:00 Follow up: Response: No adverse reaction al4 05:37 Drug: Xopenex (levalbuterol) 2.5 mg Route: Inhalation; al4 06:00 Follow up: Response: No adverse reaction al4 05:37 Drug: AtroVENT (ipratropium) Aerosol 0.5 mg Route: Inhalation; al4 06:00 Follow up: Response: No adverse reaction al4 05:54 Not Given (Physician Discretion): Ativan (LORazepam) 1 mg IVP once al4 06:11 Drug: NS 0.9% 1000 ml Route: IV; Rate: 1 bolus; Site: right antecubital; al4 09:34 Follow up: IV Status: Completed infusion; IV Intake: 1000ml vg1 06:35 Drug: levofloxacin 500 mg Volume: 100 ml; Route: IVPB; Infused Over: 60 mins; Site: al4 right antecubital; 07:35 Follow up: IV Status: Completed infusion vg1 07:57 Drug: Ativan (LORazepam) 1 mg Route: IVP; Site: right antecubital; ph 09:49 Follow up: Response: No adverse reaction; No change in condition vg1 Disposition Summary: 12/17/21 06:22 Hospitalization Ordered Hospitalization Status: Observation akash Provider: Satnam Martin cha Location: Telemetry/MedSurg (observation) akash Condition: Fair akash Problem: new akash Symptoms: have improved akash Bed/Room Type: Standard akash Room Assignment: akash Diagnosis - Essential (primary) hypertension akash - Alcohol abuse with intoxication akash - COPD/ Chronic obstructive pulmonary disease with (acute) exacerbation akash Forms: - Medication Reconciliation Form akash - SBAR form akash Signatures: Dispatcher [employer] EDBg Hooper MD MD cha Hall, Patricia RN RN Issa Julian, MARITZA BREAKER HAND Taylor Allison tw5 Kendrick Henson Victoria RN vg1
--- NOTE | 2021-12-17 06:23 | ER ---
Nurse's Notes [facility] Name: Randy Briones Age: 51 yrs Sex: Male : 1970 Arrival Date: 12/17/2021 Time: 04:27 Bed 6 Private MD: Adrianna Michaels H Diagnosis: Essential (primary) hypertension;Alcohol abuse with intoxication;COPD/ Chronic obstructive pulmonary disease with (acute) exacerbation Presentation: 12/17 04:31 Chief complaint: Patient states: " I am going to be completely honest with you okay, I tw5 have been on a 8 day drinking binge. I have so much alcohol in me it is unbelievable. I barely made it up here." Nursing staff asked if patient drove himself " Yes, yes I did.". Coronavirus screen: Vaccine status: Patient reports receiving the 2nd dose of the covid vaccine. Kreyonic. Ebola Screen: Patient negative for fever greater than or equal to 101.5 degrees Fahrenheit, and additional compatible Ebola Virus Disease symptoms Patient denies exposure to infectious person. Patient denies travel to an Ebola-affected area in the 21 days before illness onset. Initial Sepsis Screen: Does the patient meet any 2 criteria? RR > 20 per min. HR > 90 bpm. Does the patient have a suspected source of infection? No. Patient's initial sepsis screen is negative. Risk Assessment: Do you want to hurt yourself or someone else? Patient reports no desire to harm self or others. Onset of symptoms is unknown. 04:31 Method Of Arrival: Ambulatory tw5 04:31 Acuity: CANDACE 3 tw5 Triage Assessment: 04:33 General: Appears uncomfortable, Behavior is anxious, restless. Pain: Pain. Respiratory: tw5 Reports labored breathing Onset: The symptoms/episode began/occurred gradually, the patient has mild shortness of breath. Historical: - Allergies: 04:33 Lisinopril; tw5 - Home Meds: 04:33 Advair Diskus 250-50 mcg/dose Inhl dsdv 1 puff 2 times per day [Active]; albuterol tw5 sulfate 2.5 mg /3 mL (0.083 %) Inhl nebu 3 mL 3 times per day [Active]; gabapentin 100 mg Oral cap 3 caps 3 times per day [Active]; montelukast 10 mg Oral tab 1 tab once daily [Active]; Nexium 40 mg Oral cpDR 1 cap 2 times per day [Active]; Norvasc 10 mg Oral tab once daily [Active]; Spiriva with HandiHaler inhalation [Active]; Triamterene-Hydrochlorothiazid Oral once daily [Active]; - PMHx: 04:33 Alcoholism; COPD; Hypertension; tw5 - PSHx: 04:33 Amputation of left index finger; tw5 - Immunization history:: Flu vaccine is not up to date. - Social history:: Smoking status: Patient reports the use of cigarette tobacco products, smokes two packs cigarettes per day. Patient uses alcohol, patient/guardian reports recent binge of alcohol consumption. Patient/guardian denies using alcohol. - Family history:: not pertinent. Screenin:48 Abuse screen: Denies threats or abuse. Nutritional screening: No deficits noted. al4 Tuberculosis screening: No symptoms or risk factors identified. Fall Risk No fall in past 12 months (0 pts). IV access (20 points). Ambulatory Aid- None/Bed Rest/Nurse Assist (0 pts). Gait- Normal/Bed Rest/Wheelchair (0 pts) Mental Status- Oriented to own ability (0 pts). Total Art Fall Scale indicates No Risk (0-24 pts). Assessment: 04:44 General: Appears in no apparent distress. uncomfortable, Behavior is calm, cooperative, al4 Smells of alcohol, "I have been on a drinking binge for a few days." Patient states last drink was around 11:30pm last night. . Pain: Denies pain. Neuro: Level of Consciousness is awake, alert, obeys commands, Oriented to person, place, time, situation. Cardiovascular: Denies chest pain, Capillary refill < 3 seconds Patient's skin is warm and dry. Rhythm is sinus tachycardia. Respiratory: Airway is patent Respiratory effort is even, unlabored, Respiratory pattern is regular, symmetrical, Breath sounds with rhonchi bilaterally. GI: No signs and/or symptoms were reported involving the gastrointestinal system. : No signs and/or symptoms were reported regarding the genitourinary system. EENT: Eyes are red. Derm: Skin is intact, Skin is dry, Skin is red. Musculoskeletal: Range of motion: intact in all extremities. 05:30 Reassessment: Patient is alert, oriented x 3, equal unlabored respirations, skin al4 warm/dry/pink. patient sitting up in bed holding conversation.. 05:56 Reassessment: patient is sleeping. al4 06:11 Reassessment: Patient is alert, oriented x 3, equal unlabored respirations, skin al4 warm/dry/pink. Patient denies pain at this time. urinal and call light at bedside. patient awake and on the phone . 06:19 Reassessment: urinal at bedside. patient aware of the need for a urine sample. al4 07:15 Reassessment: Patient appears in no apparent distress at this time. Patient and/or vg1 family updated on plan of care and expected duration. Pain level reassessed. Patient is alert, oriented x 3, equal unlabored respirations, skin warm/dry/pink. Patient denies pain at this time. 09:45 Reassessment: Patient appears in no apparent distress at this time. Patient is alert, vg1 oriented x 3, equal unlabored respirations, skin warm/dry/pink. pt eating breakfast at bedside Patient denies pain at this time. General: Appears uncomfortable. General: Behavior is cooperative, anxious. Neuro: Level of Consciousness is awake, alert, obeys commands, Oriented to person, place, time, situation. Respiratory: Airway is patent Respiratory effort is even, unlabored, Respiratory pattern is regular. Derm: Skin is intact, Skin is red. 10:45 Reassessment: Pt stated ' Im feeling better and Im ready to leave' educated pt to wait vg1 to be seen by Dr Martin; stated "I want to leave, what do I need to do so I can go now'. Provider notified of pt wanting to leave AMA. 10:56 Reassessment: pt has called daughter to cloth picker from ED; pt has signed AMA form. vg1 Vital Signs: 04:31 BP 164 / 148; Pulse 128; Resp 24; Temp 98.1; Pulse Ox 97% on R/A; Weight 98.43 kg; tw5 Height 5 ft. 4 in. (162.56 cm); Pain 0/10; 04:45 BP 122 / 107; Pulse 123; Resp 16; Pulse Ox 95% ; lt3 04:48 BP 173 / 129; Pulse 122; Resp 22 S; Pulse Ox 94% on R/A; al4 05:19 BP 162 / 122; Pulse 110; Resp 15; Pulse Ox 95% ; lt3 05:30 BP 173 / 114; Pulse 103; Resp 18; Pulse Ox 95% ; lt3 05:45 BP 152 / 95; Pulse 87; Resp 14 S; Pulse Ox 98% on R/A; al4 06:00 BP 135 / 84; Pulse 89; Resp 20 S; Pulse Ox 97% on R/A; al4 07:57 BP 141 / 85; Pulse 103; Resp 22; Pulse Ox 95% on R/A; ph 09:44 BP 165 / 93; Pulse 108; Resp 20; Pulse Ox 95% ; vg1 04:31 Body Mass Index 37.25 (98.43 kg, 162.56 cm) tw5 Vitals: 07:57 Cardiac Rhythm Assessment Sinus tach. ph ED Course: 04:27 Patient arrived in ED. es 04:27 Adrianna Michaels DO is Private Physician. es 04:33 Triage completed. tw5 04:33 Arm band placed on left wrist. tw5 04:35 Bg Briones MD is Attending Physician. akash 04:36 Parish Chapman, RN is Primary Nurse. as6 04:48 Patient has correct armband on for positive identification. Bed in low position. al4 04:49 telemetry monitor on. Pulse ox on. NIBP on. al4 04:56 XRAY Chest (1 view) In Process Unspecified. EDMS 05:25 Inserted saline lock: 20 gauge in left hand, using aseptic technique. Blood collected. oe 06:19 Satnam Martin MD is Hospitalizing Provider. akash 07:47 Primary Nurse role handed off by Parish Chapman, RN bd 07:55 Angle Hoover, BRIGETTE is Primary Nurse. ph 09:30 No provider procedures requiring assistance completed. Patient admitted, IV remains in vg1 place. 10:56 IV discontinued, intact, bleeding controlled, No redness/swelling at site. Pressure vg1 dressing applied. Administered Medications: 05:10 Drug: Banana Bag - (NS 0.9% 1000 ml, foLIC Acid 1 mg, Thiamine 100 mg, Multivitamin 1 al4 amp) Route: IV; Rate: 125 ml/hr; Site: left wrist; 05:10 Drug: Magnesium Sulfate 2 grams Route: IVPB; Infused Over: 2 hrs; Site: right al4 antecubital; 06:36 Follow up: Response: No adverse reaction al4 09:50 Follow up: IV Status: Completed infusion vg1 05:10 Drug: Thiamine 100 mg Route: IV; Rate: bolus; Site: left wrist; al4 06:00 Follow up: Response: No adverse reaction al4 05:13 Drug: NS 0.9% 1000 ml Route: IV; Rate: 1 bolus; Site: right antecubital; al4 09:35 Follow up: IV Status: Completed infusion; IV Intake: 1000ml vg1 05:13 Drug: Labetalol 100 mg Route: PO; al4 06:00 Follow up: Response: No adverse reaction al4 05:24 Drug: Labetalol 20 mg Route: IVP; Infused Over: 2 mins; Site: left wrist; al4 06:00 Follow up: Response: No adverse reaction al4 05:30 Drug: Pepcid (famotidine) 20 mg Route: IVP; Site: left wrist; al4 06:00 Follow up: Response: No adverse reaction al4 05:30 Drug: Ativan (LORazepam) 1 mg Route: IVP; Site: right antecubital; al4 06:00 Follow up: Response: No adverse reaction al4 05:30 Drug: SOLU-Medrol (methylPrednisoLONE) 125 mg Route: IVP; Site: left wrist; al4 06:00 Follow up: Response: No adverse reaction al4 05:37 Drug: Xopenex (levalbuterol) 2.5 mg Route: Inhalation; al4 06:00 Follow up: Response: No adverse reaction al4 05:37 Drug: AtroVENT (ipratropium) Aerosol 0.5 mg Route: Inhalation; al4 06:00 Follow up: Response: No adverse reaction al4 05:54 Not Given (Physician Discretion): Ativan (LORazepam) 1 mg IVP once al4 06:11 Drug: NS 0.9% 1000 ml Route: IV; Rate: 1 bolus; Site: right antecubital; al4 09:34 Follow up: IV Status: Completed infusion; IV Intake: 1000ml vg1 06:35 Drug: levofloxacin 500 mg Volume: 100 ml; Route: IVPB; Infused Over: 60 mins; Site: al4 right antecubital; 07:35 Follow up: IV Status: Completed infusion vg1 07:57 Drug: Ativan (LORazepam) 1 mg Route: IVP; Site: right antecubital; 09:49 Follow up: Response: No adverse reaction; No change in condition vg1 Intake: 09:34 IV: 1000ml; Total: 1000ml. vg1 09:35 IV: 1000ml; Total: 2000ml. vg1 Output: 08:59 Urine: 300ml (Voided); Total: 300ml. iw Outcome: 06:22 Decision to Hospitalize by Provider. [facility] 09:30 Admitted to ER Hold. Please see [facility] for further documentation. vg1 09:30 Condition: good 09:30 Instructed on the need for admit. 11:29 Patient left the ED. vg1 Signatures: Dispatcher [employer] EDMS Leticia Alvarez Corey, MD MD cha Salyer, Rebeca Gale, BRIGETTE MACHUCA Angle Hoover RN RN Gino, Cait Jimenez RN BRIGETTE vg1 Taylor Corrigan tw5 Parish Chapman RN RN as6 Kendrick Henson al4 Tatum Kowalski lt3 Corrections: (The following items were deleted from the chart) 05:42 05:30 Ativan (LORazepam) 1 mg IVP in right antecubital al4 al4 05:46 05:10 Banana Bag - (Multivitamin 1 amp, NS 0.9% 1000 ml, Thiamine 100 mg, foLIC Acid 1 al4 mg) IV at 125 ml/hr in left antecubital al4 06:21 06:11 Reassessment: Patient is alert, oriented x 3, equal unlabored respirations, skin al4 warm/dry/pink. Patient denies pain at this time. phone and call light at bedside. . al4 06:38 04:44 Respiratory: Airway is patent Respiratory effort is even, unlabored, Respiratory al4 pattern is regular, symmetrical, Breath sounds are clear bilaterally. al4 09:49 09:45 Reassessment: Patient appears in no apparent distress at this time. Patient is vg1 alert, oriented x 3, equal unlabored respirations, skin warm/dry/pink. Patient denies pain at this time. vg1 10:56 10:54 Reassessment: Pt stated ' Im feeling better and Im ready to leave' educated pt to vg1 wait to be seen by Dr Martin; stated "I want to leave, what do I need to do so I can go now'. Provider notified of pt wanting to leave AMA. vg1
[2021-12-17 07:26] LABS: Urine Blood Negative (Negative); Urine Glucose Negative (Negative); Urine Protein 1+ (Negative); Urine Specific Gravity 1.025 (1.005-1.030); Urine pH 5.5 (5.0-7.0)
[2021-12-17 07:40] LABS: Barbiturates NEGATIVE (NEGATIVE); Benzodiazepines NEGATIVE (NEGATIVE); Cocaine NEGATIVE (NEGATIVE); METHAMPHETAM NEGATIVE (NEGATIVE); Methadone NEGATIVE (NEGATIVE); Opiates NEGATIVE (NEGATIVE); Phencyclidine NEGATIVE (NEGATIVE); THC Cannibis NEGATIVE (NEGATIVE)
--- NOTE | 2021-12-17 08:00 | RAD REPORT ---
EXAM DESCRIPTION: Heide Single View12/17/2021 4:56 am CLINICAL HISTORY: Shortness of breath COMPARISON: 2020 FINDINGS: The lungs are hyperaerated. The lungs appear clear of acute infiltrate. The heart is mildly enlarged IMPRESSION: No acute abnormalities displayed
--- NOTE | 2021-12-17 08:58 | EKG ---
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
[2021-12-17] MEDS ORDERED: ACETAMINOPHEN 500 MG TAB PO PRN (10:23)
[2021-12-17] MEDS ORDERED: MORPHINE 2 MG/ML SYR IV PRN (10:23)
[2021-12-17] MEDS ORDERED: ONDANSETRON 4 MG/2 ML VIAL IV PRN (10:23)
[2021-12-17] MEDS ORDERED: NA CHLORIDE 0.9% 1,000 ML IV SCH (11:00)
[2021-12-17 11:49] VITALS: TEMP 98.1
[2021-12-17 11:51] VITALS: O2SAT 95
[2021-12-17 11:52] VITALS: BP 165/93
[2021-12-17] MEDS ORDERED: chlordiazePOXIDE HCl 25 MG CAP PO SCH (17:00)
[2021-12-17] MEDS ORDERED: ENOXAPARIN 40 MG/0.4 ML SQ SCH (17:00)
[2021-12-18] MEDS ORDERED: FOLIC ACID 1 MG, MULTIVITAMINS INJ 10 ML, THIAMINE HCL 100 MG in NA CHLORIDE 0.9% 1,000 ML IV SCH ×8 (09:00)
== END 2021-12-17 11:29 | disposition left against medical advice (07) | DRG 897 ==
LOC: ER 04:24 → ERHOLD 10:23
PROVIDERS: ADMIT Hospitalist; ATTEND Hospitalist
DX: F10.139 Alcohol abuse with withdrawal, unspecified (principal); J44.1 Chronic obstructive pulmonary disease with (acute) exacerbation; I10 Essential (primary) hypertension; Z53.29 Procedure and treatment not carried out because of patient's decision for other reasons; Z20.822 Contact with and (suspected) exposure to COVID-19
CPT/HCPCS: 36415; 71045; 80048; 80076; 80307; 80320; 80329; 81003; 83605; 83690; 83735; 83880; 84484; 85025; 85610; 85730; 87040; 87205; 93005; 99285; J2930; J3411; J3475; J7030; U0003

== ENCOUNTER 2022-03-22 00:50 | Inpatient (IN) | payer SELFPAY ==
--- OUTSIDE RECORDS SUMMARY | 2022-03-22 00:52 | XMS REPORT | Continuity of Care Document ---
:1970 Author Organization [facility] t Address [address] [place] [address] Care Team Providers Name Role Phone LOPEZ Primary Care Physician Unavailable Mg VARGAS S Attending Clinician Whitney SHAW Attending Clinician Unavailable Raul SUNG Attending Clinician Unavailable BRYAN Attending Clinician Unavailable Whitney SHAW Admitting Clinician Unavailable Problems Condition Condition Condition Status Onset Resolution Last Treating Co mments Source Name Details Category Date Date Treatment Clinician Date Obesity Obesity Disease Active Univers (BMI (BMI 5-16 ity of 30-39.9) 30-39.9) 00:00: [address] Acute Acute Disease Active 2018-0 Univers exacerbati exacerbati 5-16 it y of on of on of 00:00: [place] chronic chronic 00 Medical obstructiv obstructiv Br anch e e pulmonary pulmonary disease disease (COPD) (COPD) Allergies, Adverse Reactions, Alerts Allergy Allergy Status Severity Reaction(s) Onset Inactive Treating Comm ents Source Name Type Date Date Clinician Lisinopr Propensi Active Anaphylaxis 2018-0 U nivers il ty to 5-16 ity of adverse 00:00: [place] reaction 00 [facility] LISINOPR DRUG Active Anaphylaxis 2018-0 Uni vers [place] INGREDI 5-16 ity of 00:00: [address] Social History Social Habit Start Date Stop Date Quantity Comments Source Exposure to 2022-03-02 2022-03-12 Not sure University SARS-CoV-2 00:00:00 05:08:00 [facility] Branch Alcohol intake 2022-03-09 2022-03-09 4.29 /d University of 00:00:00 00:00:00 [facility] Tobacco use and 2018-03-24 2018-03-24 Current user Univers ity of exposure 00:00:00 00:00:00 [facility] Tobacco Comment 2018-03-24 2018-03-24 trying to quit Unive rsity of 00:00:00 00:00:00 [facility] Sex [birth year] At [birth year] Universit y of 00:00:00 00:00:00 [facility] Smoking Status Start Date Stop Date Source Current every day smoker 2018-03-24 00:00:00 Uni versity of [facility] Medications Ordered Filled Start Stop Current Ordering Indication Dosage Frequency Signature Comments Components Source Medication Medication Date Date Medication? Clinician (SIG) Name Name HYDROcodone 2021- No 1{tbl} 1 tablet, Univers -acetaminop -02 11- Oral, ity of hen (NORCO) 12:15[place] 11[place] :00 dose, On Medica l tablet 1 Thu03/12/22 Branc h tablet at 0715, Routine HYDROcodone 2021- Yes [id number] 1{tbl} Take 1 U nivers -acetaminop -02 11-12 tablet by it y of hen 10-325 00:00: 04:59 mouth [place] mg tablet 00 :00 every 6 Medical (six) Branch hours as needed for Pain (scale 7-10) for up to 7 days. Indication s: acute pain ipratropium Yes 3mL 3 mL, Unive rs -albuteroL -14 Inhalation ity of (DUONEB) 13:00: , QID, [place] 0.5 mg-3 00 First dose Medic al mg(2.5 mg on Kym Branch base)/3 mL 02/20/22 at nebulizer 0800, solution 3 Until mL Discontinu ed, Routine methylPREDN 2021- No 40mg 40 mg, Uni vers ISolone sod -20 02-14 Intravenou i ty of succ 11:45: 10:43 s, ONCE, 1 [place] (SOLU-MEDRO 00 :00 dose, On Medi keo L (PF)) Kym Branch injection 02/20/22 at 40 mg 0645, STAT foLIC acid 2021- No [facility]mg 1 [facility] 02-20 Oral, ity of tablet 1 mg 11:45: 10:41 [place] :[place] dose, On Medical Kym Branch 02/20/22 at 0645, LAURYN thiamine 2021- No 100mg 100 mg, [facility] ers (VITAMIN 02-20 Intravenou ity of B1) 11:45: 10:43 s, ONCE, 1 [place] injection 00 :00 dose, On Medica l 100 mg Kym Branch 02/20/22 at 0645, LAURYN LORazepam No 2mg 2 mg, Slow U nivers (ATIVAN) 02-20 IV Push, ity of injection 2 11:45: 10:42 [place] mg 00 :00 dose, On Medical Kym Branch 02/20/22 at 0645, STAT ipratropium No 3mL 3 mL, [facility] ers -albuteroL 02-20 Inhalation it y of (DUONEB) 10:30: 09:34 , ONCE, 1 [place] 0.5 mg-3 00 :00 dose, On Medical mg(2.5 mg Kym Branch base)/3 mL 02/20/22 at nebulizer 0530, solution 3 Routine mL albuterol Yes [id number] 2{puff} Inhale 2 Univers 90 4-14 Puffs ity of mcg/actuati 00:00: every 4 [place] on inhaler 00 (four) Medical hours as Branch needed for Wheezing or Shortness of Breath. albuterol Yes [id number] 2.5mg Inhale 3 Univers 2.5 mg /3 4-14 mL every 4 ity of mL (0.083 00:00: (four) [place] %) 00 hours. May Medical nebulizer also Branch solution nebulize one extra every 6 hours. budesonide- Yes [id number] 2{puff} Inhale 2 Univers formoteroL 4-14 Puffs 2 ity of 160-4.5 00:00: (two) [place] mcg/actuati 00 times Medical on inhaler daily. Branch triamterene Yes [id number] 1{tbl} Take 1 Univers -hydrochlor 4-14 tablet by ity of othiazid 00:00: mouth [place] 37.5-25 mg 00 daily. Medical tablet Branch chlordiazeP Yes [id number] 25mg Take 1 Univers OXIDE 25 mg 4-14 capsule by it y of capsule 00:00: mouth [place] 00 every 6 Medical (six) Branch hours as needed for Anxiety, Agitation, Heart Rate => 100 or Detox. predniSONE 2021-0 Yes [id number] TAKE ONE Univers 10 mg 4-14 TABLET BY ity of tablet 00:00: MOUTH [place] 00 DAILY Medical Branch albuterol Yes [id number] 2{puff} Inhale 2 Univers 90 4-14 Puffs ity of mcg/actuati 00:00: every 4 [place] on inhaler 00 (four) Medical hours as Branch needed for Wheezing or Shortness of Breath. albuterol Yes [id number] 2.5mg Inhale 3 Univers 2.5 mg /3 4-14 mL every 4 ity of mL (0.083 00:00: (four) [place] %) 00 hours. May Medical nebulizer also Branch solution nebulize one extra every 6 hours. budesonide- Yes [id number] 2{puff} Inhale 2 Univers formoteroL 4-14 Puffs 2 ity of 160-4.5 00:00: (two) [place] mcg/actuati 00 times Medical on inhaler daily. Branch triamterene Yes [id number] 1{tbl} Take 1 Univers -hydrochlor 4-14 tablet by ity of othiazid 00:00: mouth [place] 37.5-25 mg 00 daily. Medical tablet Branch chlordiazeP 0 Yes [id number] 25mg Take 1 Univers OXIDE 25 mg 4-14 capsule by it y of capsule 00:00: mouth [place] 00 every 6 Medical (six) Branch hours as needed for Anxiety, Agitation, Heart Rate => 100 or Detox. predniSONE 2021-0 Yes [id number] TAKE ONE Univers 10 mg 4-14 TABLET BY ity of tablet 00:00: MOUTH [place] 00 DAILY Medical Branch albuterol 5 2017-0 Yes 2.5mg Inhale 2.5 Univers mg/mL 9-07 mg every 6 ity of nebulizer 14:02: (six) [place] solution 20 hours as Medical needed for Branch Wheezing or Shortness of Breath. albuterol 5 2017-0 Yes 2.5mg Inhale 2.5 Univers mg/mL 9-07 mg every 6 ity of nebulizer 14:02: (six) [place] solution 20 hours as Medical needed for Branch Wheezing or Shortness of Breath. budesonide- 2017-0 Yes 2{puff} Inhale 2 Univers formoterol 9-07 Puffs 2 ity of 160-4.5 00:00: (two) [place] mcg/actuati 00 times Medical on inhaler daily. Branch albuterol Yes 2.5mg Inhale 3 Uni vers 2.5 mg /3 9-07 mL every 4 ity of mL (0.083 00:00: (four) [place] %) 00 hours as Medical nebulizer needed for Bran ch solution Wheezing or Shortness of Breath. budesonide- 0 Yes 2{puff} Inhale 2 Univers formoterol 9-07 Puffs 2 ity of 160-4.5 00:00: (two) [place] mcg/actuati 00 times Medical on inhaler daily. Branch albuterol Yes 2.5mg Inhale 3 Uni vers 2.5 mg /3 9-07 mL every 4 ity of mL (0.083 00:00: (four) [place] %) 00 hours as Medical nebulizer needed for Bran ch solution Wheezing or Shortness of Breath. triamterene 2017- Yes 1{capsu Take 1 U nivers -hydrochlor 5-18 le} capsule by it y of othiazide 16:32: mouth [place] 37.5-25 mg 14 every Medical per capsule morning. Bran ch amLODIPine 2017-0 Yes 10mg Take 10 mg U nivers 10 mg 5-18 by mouth ity of tablet 16:32: at [place] 14 bedtime. Medical Branch gabapentin 2017-0 Yes 100mg Take 100 Un odalys 100 mg 5-18 mg by ity of capsule 16:32: mouth 2 [place] 14 (two) Medical times Branch daily as needed ([facility] pain). foLIC acid 2017-0 Yes 1mg Take 1 mg Un odalys 1 mg tablet 5-18 by mouth ity of 16:32: daily. [address] triamterene 2017- Yes 1{capsu Take 1 U nivers -hydrochlor 5-18 le} capsule by it y of othiazide 16:32: mouth [place] 37.5-25 mg 14 every Medical per capsule morning. Bran ch amLODIPine 2017- Yes 10mg Take 10 mg U nivers 10 mg 5-18 by mouth ity of tablet 16:32: at [place] 14 bedtime. Medical Branch gabapentin 2017- Yes 100mg Take 100 Un odalys 100 mg 5-18 mg by ity of capsule 16:32: mouth 2 [place] 14 (two) Medical times Branch daily as needed ([facility] pain). foLIC acid Yes 1mg Take 1 mg Un odalys 1 mg tablet 5-18 by mouth ity of 16:32: daily. [address] budesonide- Yes 2{puff} Inhale 2 Univers formoterol 5-18 Puffs 2 ity of 160-4.5 00:00: (two) [place] mcg/actuati 00 times Medical on inhaler daily. Branch budesonide- Yes 2{puff} Inhale 2 Univers formoterol 5-18 Puffs 2 ity of 160-4.5 00:00: (two) [place] mcg/actuati 00 times Medical on inhaler daily. Branch Immunizations Ordered Filled Immunization Date Status Comments [facility] Immunization Name Name SARS-COV-2 COVID-19 2021-02-03 Completed Unive rsity of PFIZER VACCINE 00:00:00 [facility] SARS-COV-2 COVID-19 2021-02-03 Completed Unive rsity of PFIZER VACCINE 00:00:00 [facility] SARS-COV-2 COVID-19 2021-01-13 Completed Unive rsity of PFIZER VACCINE 00:00:00 [facility] SARS-COV-2 COVID-19 2021-01-13 Completed Unive rsity of PFIZER VACCINE 00:00:00 [facility] Pneumococcal 2018-03-26 Completed University o f Polysaccharide, 00:00:00 [place] Med ical PPSV23 (PNEUMOVAX) Phyllis Influenza Virus 2018-03-26 Completed Universit y of Vaccine Quad IM 3+ 00:00:00 [facility] Branch Pneumococcal 2018-03-26 Completed University o f Polysaccharide, 00:00:00 [place] Med ical PPSV23 (PNEUMOVAX) Branch Influenza Virus 2018-03-26 Completed Universit y of Vaccine Quad IM 3+ 00:00:00 [facility] Vital Signs Vital Name Observation Time Observation Value Comments Source Systolic blood 2022-03-12 10:13:00 119 mm[Hg] Univer sity of pressure [facility] Diastolic blood 2022-03-12 10:13:00 75 mm[Hg] Unive rsity of pressure [facility] Heart rate 2022-03-12 10:13:00 105 /min Universi ty of [facility] Body temperature 2022-03-12 10:13:00 37.28 Debbie Univ ersity [facility] Respiratory rate 2022-03-12 10:13:00 19 /min Univ ersity of [facility] Body height 2022-03-12 10:13:00 162.6 cm Universi ty of [facility] Body weight 2022-03-12 10:13:00 99.791 kg Universi ty of [facility] BMI 2022-03-12 10:13:00 37.76 kg/m2 Universi ty of [facility] Oxygen saturation in 2022-03-12 10:13:00 96 /min University of Arterial blood by [place] [employer] [facility] Pulse oximetry Branch Systolic blood 2022-02-20 11:57:00 155 mm[Hg] Univer sity of pressure [facility] Diastolic blood 2022-02-20 11:57:00 88 mm[Hg] Unive rsity of pressure [facility] Heart rate 2022-02-20 11:57:00 105 /min Universi ty of [facility] Respiratory rate 2022-02-20 11:57:00 18 /min Univ ersity [facility] Oxygen saturation in 2022-02-20 11:57:00 100 /min University of Arterial blood by [place] [employer] keo Pulse oximetry Branch Body temperature 2022-02-20 09:25:00 37 Debbie Univ ersity of [facility] Body height 2022-02-20 09:25:00 162.6 cm Universi ty of [facility] Body weight 2022-02-20 09:25:00 96.163 kg Universi ty of [facility] BMI 2022-02-20 09:25:00 36.39 kg/m2 [facility] Procedures Procedure Date / Time Performed Performing Clinician Sourc e CONSENT/REFUSAL FOR 2022-03-12 10:03:12 [facility], [facility] Name Medical Branch TREATMENT XR CHEST 1 VW 2022-02-20 09:59:00 Christy Shaw [facility] LIPASE 2022-02-20 09:30:00 Christy Shaw [facility] TROPONIN I 2022-02-20 09:30:00 Christy Shaw [facility] COMP. METABOLIC PANEL 2022-02-20 09:30:00 Christy Shaw [facility] ([id number]) [facility] CBC WITH DIFF 2022-02-20 09:30:00 Christy Shaw [facility] N-TERMINAL PRO-BNP 2022-02-20 09:30:00 Christy Shaw [facility] NOTICE OF PRIVACY 2022-02-20 09:15:02 Doctor Unassigned, No Univ [facility] PRACTICES Name [facility] CONSENT/REFUSAL FOR 2022-02-20 09:14:47 Doctor Unassigned, No Un iversity of [place] DIAGNOSIS AND [facility] TREATMENT Encounters Start End Encounter Admission Attending Care Care Encounter Source Date/Time Date/Time Type Type Clinicians Facility Department ID 2022-03-12 2022-03-12 Emergency [facility] [id number] Univers 05:15:00 06:41:00 Christy SMITH [id number] radha [facility] [id number] [facility] [id number] [facility] keo 084 Branch 2022-03-12 2022-03-12 [id number] Univers 05:15:00 06:41:00 CHRISTY garcia [facility] 2022-02-20 2022-02-20 [facility] [id number] Univers 04:17:00 07:16:00 WAKILI [facility] 2022-02-20 2022-02-20 [facility] [id number] Univers 04:17:00 07:16:00 Christy SMITH [id number] [facility] [id number] [facility] [id number] [facility] 084 Branch 2021-02-03 2021-02-03 Outpatient R PINEDA, [facility] [id number] Univers 11:10:00 11:10:00 DENISE [facility] 2021-01-13 2021-01-13 Outpatient [facility] [id number] Univers 11:20:00 11:20:00 [facility] 2020-11-10 2020-11-10 Outpatient R BRYAN, [facility] [id number] Univers 08:20:00 08:20:00 KARLEY [facility] Results Test Description Test Time Test Comments Results Result Comments Source TROPONIN I 2022-02-20 10:16:22 Test Item Value Reference Range Interpretation Comme nts TROPONIN I (test code = 0.007 ng/mL See_Comment [Au tomated message] The [id number]) system which ge nerated this result tra nsmitted reference range : <=0.034. The reference r ernie was not used to int erpret this result as normal/abnormal . LOUISE (test code = LOUISE) Reference (Normal) Range (defined by the 99th percentile reference limit): <= 0.034 ng/mL Note: Cardiac troponin begins to rise 3-4 hours after the onset of ischemia. Repeat in 4-6 hours if the sample was drawn within 3-4 hours of the onset of the symptom and found normal. Diagnosis of myocardial injury is made with acute changes in cTn concentrations with at least one serial sample above the 99th percentile upper reference limit (URL), taken together with the patient's clinical presentation. Biotin has been reported to cause a negative bias, interpret results relative to patient's use of biotin. Lab Interpretation Normal (test code = 68554-6) [facility] [id number] 10:13:01 Test Item Value Reference Range Interpretation Comments NT-proBNP (test code 52 pg/mL See_Comment [Autom ated = 7511248509) message] The system which generated this result transmitted reference range : <=125. The reference range was not used to interpret this result as normal/abnormal . LOUISE (test code = LOUISE) Biotin has been reported to cause a negative bias, interpret results relative to patient's use of biotin. Lab Interpretation Normal (test code = 94854-2) [facility]. METABOLIC PANEL ([id number])2022-02-20 10:04:02 Test Item Value Reference Range Interpretation Comments NA (test code = 137 mmol/L 135-145 0850786593) K (test code = 3.6 mmol/L 3.5-5.0 4436203123) CL (test code = 99 mmol/L 98-108 0536335293) CO2 TOTAL (test code = 25 mmol/L 23-31 5608670236) AGAP (test code = 2-16 0718912245) BUN (test code = 6 mg/dL 7-23 L 1799308290) GLUCOSE (test code = 88 mg/dL 70-110 7490044982) CREATININE (test code = 0.55 mg/dL 0.60-1.25 L 5057517049) TOTAL BILI (test code = 0.8 mg/dL 0.1-1.2 2204369094) CALCIUM (test code = 8.9 mg/dL 8.6-10.6 2385603347) T PROTEIN (test code = 7.5 g/dL 6.3-8.2 7471405494) ALBUMIN (test code = 4.8 g/dL 3.5-5.0 7788114779) ALK PHOS (test code = 113 U/L 34-122 0748999976) ALTv (test code = 84 U/L 5-50 H 1742-6) AST(SGOT) (test code = 107 U/L 13-40 H 7441535662) eGFR (test code = mL/min/1.73m2 6918583924) LOUISE (test code = LOUISE) Association of Glomerular Filtration Rate (GFR) and Staging of Kidney Disease* + --+ --+ ------+| GFR (mL/min/1.73 m2) ?| With Kidney Damage ?| ?Without Kidney Damage+ --------+ --------+ +| ?>90 ?| ?Stage one ?| ? Normal ?+ ---+ ---+ -------+| ?60-89 ?| ?Stage two ?| ? Decreased GFR ? + --+ --+ ------+| ?30-59 ?| ?Stage three ?| ? Stage three ? + --+ --+ ------+| ?15-29 ?| ?Stage four ? | ? Stage four ?+ ---+ ---+ -------+| ?<15 (or dialysis) ? ?| ?Stage five ? | ? Stage five ?+ ---+ ---+ -------+ *Each stage assumes the associated GFR level has been in effect for at least three months. ?Stages 1 to 5, with or without kidney disease, indicate chronic kidney disease. Notes: Determination of stages one and two (with eGFR >59mL/min/1.73 m2) requires estimation of kidney damage for at least three months as defined by structural or functional abnormalities of the kidney, manifested by either:Pathological abnormalities or Markers of kidney damage (including abnormalities in the composition of the blood or urine or abnormalities in imaging tests). Lab Interpretation Abnormal (test code = 60733-7) [facility] [id number] 10:03:21 Test Item Value Reference Range Interpretation Comments LIPASE (test code = 4865381582) 193 U/L 0-220 Lab Interpretation (test code = Normal 56278-1) [facility] WITH [id number] 09:39:17 Test Item Value Reference Range Interpretation Comments WBC (test code = See_Comment [Automated 4769-2) message] The sy stem which generated this result transmitted reference range : 4.20 - 10.70 10*3/?L. The reference range was not used to interpret this result as normal/abnormal . RBC (test code = See_Comment [Automated 879-1) message] The sy stem which generated this result transmitted reference range : 4.26 - 5.52 10*6/?L. The reference range was not used to interpret this result as normal/abnormal . HGB (test code = 17.1 g/dL 12.2-16.4 H 718-7) HCT (test code = 48.2 % 38.4-49.3 4544-3) MCV (test code = 100.2 fL 81.7-95.6 H 787-2) MCH (test code = 35.6 pg 26.1-32.7 H 785-6) MCHC (test code = 35.5 g/dL 31.2-35.0 H 786-4) RDW-SD (test code = 44.4 fL 38.5-51.6 45512-1) RDW-CV (test code = 11.9 % 12.1-15.4 L 788-0) PLT (test code = See_Comment [Automated 777-3) message] The sy stem which generated this result transmitted reference range : 150 - 328 10*3/ ?L. The reference r ernie was not used to interpret this result as normal/abnormal . MPV (test code = 9.2 fL 9.8-13.0 L 16386-6) NRBC/100 WBC (test See_Comment [Automat ed code = 4318047446) message] The system which generated this result transmitted reference range : 0.0 - 10.0 /100 WBCs. The refer ence range was not u sed to interpret th is result as normal/abnormal . NRBC x10^3 (test code <0.01 See_Comment [Auto mated = 1819098163) message] The s ystem which generated this result transmitted reference range : 10*3/?L. The reference range was not used to interpret this result as normal/abnormal . GRAN MAT (NEUT) % 69.9 % (test code = 770-8) IMM GRAN % (test code 1.50 % = 3064418117) LYMPH % (test code = 18.9 % 736-9) MONO % (test code = 7.0 % 5905-5) EOS % (test code = 1.9 % 713-8) BASO % (test code = 0.8 % 706-2) GRAN MAT x10^3(ANC) 7.15 10*3/uL 1.99-6.95 H (test code = 5387559722) IMM GRAN x10^3 (test 0.15 10*3/uL 0.00-0.06 H code = 9472247913) LYMPH x10^3 (test code 1.93 10*3/uL 1.09-3.23 = 731-0) MONO x10^3 (test code 0.72 10*3/uL 0.36-1.02 = 742-7) EOS x10^3 (test code = 0.19 10*3/uL 0.06-0.53 711-2) BASO x10^3 (test code 0.08 10*3/uL 0.01-0.09 = 704-7) Lab Interpretation Abnormal (test code = 03381-1) [facility]"
[2022-03-22 01:30] LABS: Absolute Lymphocytes (CBC) 3.1 K/uL (0.7-4.9); Hematocrit 41.9 % (39.6-49.0); Lymphocytes % 32.8 % (15.3-44.8); MPV 6.7 fL (7.6-11.3); RBC Red Blood Cell Count 4.09 M/uL (4.33-5.43)
[2022-03-22 01:30] LABS: Urine Blood Negative (Negative); Urine Glucose Negative (Negative); Urine Protein Negative (Negative); Urine Specific Gravity 1.025 (1.005-1.030); Urine pH 5.5 (5.0-7.0)
[2022-03-22 01:37] LABS: Arterial Blood Carboxyhemoglob 7.3 % (0-1.5); Blood Gas Oxyhemoglobin 82.3 % (94-97); Blood O2 Saturation 89.9 % (92-98.5)
[2022-03-22] MEDS ORDERED: NA CHLORIDE 0.9% 1,000 ML ONE (01:38)
[2022-03-22 01:39] LABS: Protime INR 0.95
[2022-03-22 01:51] LABS: Albumin 3.2 g/dL (3.4-5.0); Bilirubin Direct 0.1 mg/dL (0-0.2); Bilirubin Total 0.1 mg/dL (0.2-1.0); Potassium 3.5 mmol/L (3.5-5.1); Protein, Total 6.6 g/dL (6.4-8.2)
[2022-03-22 02:00] LABS: Barbiturates NEGATIVE (NEGATIVE); Benzodiazepines NEGATIVE (NEGATIVE); Cocaine NEGATIVE (NEGATIVE); METHAMPHETAM NEGATIVE (NEGATIVE); Methadone NEGATIVE (NEGATIVE); Opiates POSITIVE (NEGATIVE); Phencyclidine NEGATIVE (NEGATIVE); THC Cannibis NEGATIVE (NEGATIVE)
--- NOTE | 2022-03-22 02:44 | EDPHYS ---
Physician Documentation [facility] Name: Randy Briones Age: 51 yrs Sex: Male : 1970 Arrival Date: 03/22/2022 Time: 00:53 Bed 3 Private MD: ED Physician Aren Benson HPI: 03/22 00:50 This 51 yrs old Male presents to ER via EMS with complaints of opioid overdose, alcohol ms3 intoxication, history of COPD. 00:50 The patient presents to the emergency department after a known overdose, that was ms3 accidental, 12 [place] 5/325 mg; 12- Klonopin; Alcohol. Context: Method: the patient has a confirmed or suspected ingestion, of benzodiazepines, Opioid. Associated signs and symptoms: Pertinent negatives: dizziness, vomiting. Severity of symptoms: At their worst the symptoms were very mild in the emergency department the symptoms are unchanged Pain is currently a 0 / 10. Per EMS Narcan given on scene. ROS: 00:50 Constitutional: Negative for fever, and chills. Neck: Negative for injury, pain, and ms3 swelling, Cardiovascular: Negative for chest pain, and palpitations. Respiratory: Negative for shortness of breath, cough, wheezing, and pleuritic chest pain, Abdomen/GI: Negative for abdominal pain, nausea, vomiting, diarrhea, and constipation, MS/Extremity: Negative for injury and deformity, Skin: Negative for injury, rash, and discoloration. 00:50 All other systems are negative. Exam: 00:50 ECG was reviewed by the Attending Physician. ms3 00:50 Constitutional: This is a well developed, well nourished patient who is awake, alert, ms3 and in no acute distress. Head/Face: Normocephalic, atraumatic. Chest/axilla: Normal chest wall appearance and motion. Nontender with no deformity. Cardiovascular: Regular rate and rhythm with a normal S1 and S2. No gallops, murmurs, or rubs. Normal PMI, no JVD. No pulse deficits. Abdomen/GI: Soft, non-tender, with normal bowel sounds. No distension or tympany. No guarding or rebound. No evidence of tenderness throughout. Skin: Warm, dry with normal turgor. Normal color with no rashes, no lesions, and no evidence of cellulitis. Psych: Awake, alert, with orientation to person, place and time. Behavior, mood, and affect are within normal limits. 00:50 Respiratory: the patient does not display signs of respiratory distress, Respirations: normal, Breath sounds: wheezing: expiratory that is moderate, is heard diffusely. Vital Signs: 00:53 BP 152 / 89; Pulse 92; Resp 18; Temp 98(O); Pulse Ox 90% on 3 lpm NC; Weight 100.24 kg; ke1 Height 5 ft. 4 in. (162.56 cm); Pain 0/10; 02:03 BP 138 / 93; Pulse 87; Resp 14; Pulse Ox 100% on BiPAP; ke1 00:53 Body Mass Index 37.93 (100.24 kg, 162.56 cm) ke1 MDM: 00:50 Differential diagnosis: Ingestion/exposure to opioids, benzodiazepines, alcohol ms3 polypharmacy, over medication. Data reviewed: vital signs, nurses notes, lab test result(s), radiologic studies. Data interpreted: Pulse oximetry: on room air is 90 %. Interpretation: borderline. 01:11 Patient medically screened. ms3 03/22 00:57 Order name: Acetaminophen; Complete Time: 02:03 03/22 00:57 Order name: Basic Metabolic Panel; Complete Time: 02:03 03/22 00:57 Order name: CBC with Diff; Complete Time: 01:37 03/22 00:57 Order name: ETOH Level; Complete Time: 02:03 03/22 00:57 Order name: Hepatic Function; Complete Time: 02:03 03/22 00:57 Order name: PT-INR; Complete Time: 02:03 03/22 00:57 Order name: Ptt, Activated; Complete Time: 02:03 03/22 00:57 Order name: Salicylate; Complete Time: 02:03 03/22 00:57 Order name: Urine Drug Screen; Complete Time: 02:03 03/22 01:04 Order name: ABG; Complete Time: 02:03 03/22 01:30 Order name: Urine Dipstick-Ancillary; Complete Time: 02:03 EDMS 03/22 02:31 Order name: COVID-19 SARS RT PCR (Document "Date of Onset" if Symptomatic); Complete la Time: 03:50 03/22 04:52 Order name: Comprehensive Metabolic Panel; Complete Time: 04:53 EDMS 03/22 04:52 Order name: Bilirubin Direct; Complete Time: 04:53 EDMS 03/22 00:57 Order name: EKG; Complete Time: 00:57 03/22 00:57 Order name: EKG - Nurse/Tech; Complete Time: 02:01 03/22 00:57 Order name: IV Saline Lock; Complete Time: 01:30 03/22 00:57 Order name: Labs collected and sent; Complete Time: 01:30 03/22 00:57 Order name: Suicide Screening ([place]); Complete Time: 01:30 03/22 00:57 Order name: Urine Dipstick-Ancillary (obtain specimen); Complete Time: :30 03/22 00:57 Order name: Chest Single View XRAY 03/22 00:57 Order name: Misc. Order: call poison control; Complete Time: 01:30 03/22 01:29 Order name: BIPAP 03/22 04:52 Order name: Acetaminophen Level; Complete Time: 04:53 EDMS EC:50 Rate is 98 beats/min. Rhythm is regular. QRS [place] is Normal. No ST changes noted. ms3 Clinical impression: NSR w/ Non-specific ST/T Changes. Interpreted by me. Administered Medications: 01:37 Drug: NS 0.9% 1000 ml Route: IV; Rate: 1000 ml; Site: right antecubital; ke1 Disposition Summary: 03/22/22 02:43 Hospitalization Ordered Hospitalization Status: Inpatient Admission ms3 Provider: Syed Owens ms3 Condition: Stable ms3 Problem: new ms3 Symptoms: are unchanged ms3 Bed/Room Type: Standard ms3 Location: Intensive Care Unit(03/22/22 02:43) ms3 Room Assignment: 1-(03/22/22 04:00) cg Diagnosis - COPD/ Chronic obstructive pulmonary disease with (acute) exacerbation ms3 - Alcohol abuse ms3 - Alcohol abuse with intoxication ms3 - Opioid abuse ms3 Discharge Instructions: - Discharge Summary Sheet ke1 Forms: - Medication Reconciliation Form ms3 - SBAR form ms3 Signatures: Dispatcher [employer] EDJairo Hi FNP-C [employer]IVER-Cla1 Bridget Gomez, RN RN cg Aren Benson DO DO ms3 Bob Loredo, RN RN ke1 Corrections: (The following items were deleted from the chart) 02: 02:43 Telemetry/MedSurg (Inpatient) ms3 ms3 02: 02:43 ms3 ms3 04:00 02:43 ms3 cg
--- NOTE | 2022-03-22 02:44 | ER ---
Nurse's Notes [facility] Name: Randy Briones Age: 51 yrs Sex: Male : 1970 Arrival Date: 03/22/2022 Time: 00:53 Bed 3 Private MD: Diagnosis: COPD/ Chronic obstructive pulmonary disease with (acute) exacerbation;Alcohol abuse;Alcohol abuse with intoxication;Opioid abuse Presentation: 03/22 00:53 Chief complaint: EMS states: Patient took >10 pills norco 5/325 + >12 pills klonopin + ke1 multiple beers, R 8-10 on EMs arrival, narcan given x1. Risk Assessment: Do you want to hurt yourself or someone else? Patient reports no desire to harm self or others. Onset of symptoms was March 22, 2022. 00:53 Method Of Arrival: EMS: [facility] ke1 00:53 Ebola Screen: No symptoms or risks identified at this time. Initial Sepsis Screen: Does ke1 the patient meet any 2 criteria? No. Patient's initial sepsis screen is negative. Does the patient have a suspected source of infection? No. Patient's initial sepsis screen is negative. 00:53 Acuity: CANDACE 2 ke1 Triage Assessment: 01:03 General: Appears obese, unkempt, Behavior is drowsy. Pain: Denies pain. Neuro: Level of ke1 Consciousness is awake. Respiratory: Respiratory effort is even, unlabored. Screenin:04 Abuse screen: Denies threats or abuse. Nutritional screening: No deficits noted. ke1 Tuberculosis screening: No symptoms or risk factors identified. Fall Risk Fall in past 12 months (25 points). Secondary diagnosis (15 points) ETOH. IV access (20 points). Ambulatory Aid- None/Bed Rest/Nurse Assist (0 pts). Gait- Normal/Bed Rest/Wheelchair (0 pts) Mental Status- Oriented to own ability (0 pts). Total Art Fall Scale indicates High Risk Score (45 or more points). Fall prevention measures have been instituted. Side Rails Up X 2 Placed Close to Nursing Station Frequent Obs/Assessments Occuring. Assessment: 01:49 Reassessment: spoke to poison control, . Poison control recommended sm5 monitoring LFT's and acetaminophen level throughout the day. Any increase in LFT's or any detectable acetaminophen level to start pt on acetylcysteine. Also need to monitor pt for [employer] depression, respiratory depression, nausea, vomiting, and abd pain.. 02:34 Reassessment:. Respiratory: Patient placed on BiPAP: Inspiratory Pressure: 12 ke1 Expiratory (EPAP) Pressure: 6 FiO2%: 45 Respiratory Rate: 16. GI: Abdomen is obese. : No deficits noted. Vital Signs: 00:53 BP 152 / 89; Pulse 92; Resp 18; Temp 98(O); Pulse Ox 90% on 3 lpm NC; Weight 100.24 kg; ke1 Height 5 ft. 4 in. (162.56 cm); Pain 0/10; 02:03 BP 138 / 93; Pulse 87; Resp 14; Pulse Ox 100% on BiPAP; ke1 00:53 Body Mass Index 37.93 (100.24 kg, 162.56 cm) ke1 ED Course: 00:53 Patient arrived in ED. ke1 00:53 Bob Loredo RN is Primary Nurse. ke1 00:57 Aren Benson DO is Attending Physician. ms3 01:03 Triage completed. ke1 01:51 No provider procedures requiring assistance completed. Maintain EMS IV. Dressing sm5 intact. Good blood return noted. Site clean \T\ dry. Gauge \T\ site: 18G R arm. 02:05 Arm band placed on left wrist. ke1 02:06 Bed in low position. Side rails up X 1. Side rails up X2. ke1 02:18 Chest Single View XRAY In Process Unspecified. EDMS 02:42 Syed Owens MD is Hospitalizing Provider. ms3 Administered Medications: 01:37 Drug: NS 0.9% 1000 ml Route: IV; Rate: 1000 ml; Site: right antecubital; ke1 Intake: 02:40 IV: 1000ml; Total: 1000ml. ke1 Output: 02:40 Urine: 200ml; Total: 200ml. ke1 Outcome: 02:43 Decision to Hospitalize by Provider. ms3 04:57 Patient left the ED. ke1 Signatures: Dispatcher [employer] EDMS Aren Benson DO DO ms3 Marsha Gonzalez RN RN sm5 Bob Loredo RN RN ke1 Corrections: (The following items were deleted from the chart) 01:06 00:53 BP 152 / 89; Pulse 92bpm; Resp 18bpm; Pulse Ox 90% 3 lpm Nasal Cannula; 100.24 ke1 kg; Height 5 ft. 4 in.; BMI: 37.9; Pain 0/10; ke1 01:10 00:53 Acuity: CANDACE 3 ke1 ke1
--- NOTE | 2022-03-22 03:31 | P.HP ---
Certification for Inpatient Patient admitted to: Inpatient With expected LOS: >2 Midnights Patient will require the following post-hospital care: None Practitioner: I am a practitioner with admitting privileges, knowledge of patient current condition, hospital course, and medical plan of care. Services: Services provided to patient in accordance with Admission requirements found in Title 42 Section 412.3 of the Code of Federal Regulations Patient History Date of Service: 03/22/22 Reason for admission: Respiratory failure, ETOH abuse, Overdose History of Present Illness: 51-year-old male with history of COPD on home oxygen/chronic steroids, alcohol abuse, tobacco abuse, hypertension and GERD presents the emergency department for altered mental status, respiratory depression. Patient was at home he reports he took more than 10 Tylenol 3's throughout the day as well as a few Klonopin this evening with his beer. He typically drinks between 12 and 14 beers per day and more on the weekend. His last drink was few hours prior to arrival. He was evaluated in the emergency department his labs were significant for an alcohol level of 297 his LFTs were within normal limits his ABG demonstrated acute hypoxic respiratory failure and he was placed on Bipap. Poison control was contacted. Pt denies SI .Will admit for further evaluation and mgmt. Allergies Lisinopril Allergy (Mild, Uncoded 03/19/21 08:09) Shortness of breath BC powder Allergy (Uncoded 03/19/21 08:09) Hives Home Medications: Thiamine Mononitrate (Vit B1) [Vitamin B-1] 1 tab PO BID 07/19/18 Esomeprazole Mag Trihydrate [Nexium] 1 tab PO DAILY 02/13/19 Amlodipine [Norvasc*] 5 mg PO DAILY 01/03/21 Budesonide/Formoterol Fumarate [Symbicort 160-4.5 Mcg Inhaler] 2 puff IH BID 01/03/21 Spironolactone [Aldactone*] 50 mg PO DAILY 01/03/21 Tiotropium [place] [Spiriva] 18 mcg IH DAILY PRN 01/03/21 Albuterol Neb [Proventil 0.083% Neb Soln] 2.5 mg NEB [id number] PRN #120 amp 01/04/21 Nebulizer [Aeroneb Go Nebulizer] 1 each MC TID #1 each 01/04/21 predniSONE [Prednisone] 40 mg PO DAILY #5 tablet 01/04/21 LORazepam [Lorazepam] 1 tab PO DAILY 03/21/21 Naltrexone HCl Dihydrate 50 gm PO DAILY 03/21/21 predniSONE [Prednisone] 2 tab PO DAILY 03/21/21 - Past Medical/Surgical History Diabetic: No -: Hypertension -: COPD on chronic steroids -: Tobacco abuse -: Alcohol abuse -: GERD -: Obesity -: 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 - Family History Mother -: Diabetes, Cancer Notes: colon cancer Father -: Lung disease Notes: COPD - Social History Smoking Status: Never smoker Alcohol use: Yes CD- Drugs: No Caffeine use: Yes Place of Residence: Home Review of Systems 10-point ROS is otherwise unremarkable Respiratory: Shortness of Breath Physical Examination - Physical Exam General: Alert, In no apparent distress, Oriented x3 HEENT: Atraumatic, PERRLA, Mucous membr. moist/pink, EOMI, Sclerae nonicteric Neck: Supple, 2+ carotid pulse no bruit, No LAD, Without JVD or thyroid abnormality Respiratory: Other (tachypnea, dyspnea, on bipap) Cardiovascular: Regular rate/rhythm, Normal S1 S2 Capillary refill: <2 Seconds Gastrointestinal: Normal bowel sounds, No tenderness Musculoskeletal: No tenderness Integumentary: No rashes Neurological: Normal speech, Normal strength at 5/5 x4 extr, Normal tone, Normal affect - Studies Laboratory Data (last 24 hrs) 03/22/22 01:16: PT 10.4, INR 0.95, APTT 31.8 03/22/22 01:16: WBC 9.4, Hgb 14.4, Hct 41.9, Plt Count 236 03/22/22 01:16: Sodium 141, Potassium 3.5, BUN 6 L, Creatinine 0.79, Glucose 86, Total Bilirubin 0.1 L, AST 37, ALT 34, Alkaline Phosphatase 75 Assessment and Plan - Plan Assessment: Acute on chronic hypercapnic/hypoxic respiratory failure COPD with exacerbation Alcohol abuse and dependence accidental overdose opioid/benzo's Hypertension GERD Plan: Acute on chronic hypercapnic/hypoxic respiratory failure: Continue BiPAP as needed continue chronic steroid 10 mg prednisone daily and supplemental oxygen as needed patient on 3 L per nasal cannula at home risk for depression likely related to alcohol abuse/accidental opioid/benzo overdose. Patient was contacted recommendations and would benefit repeat Tylenol level/CMP in the morning. COPD with exacerbation: Continue as above pulmonology consulted Alcohol abuse and dependence: Alcohol withdrawal assessment, as needed Ativan. accidental overdose opioid/benzo's: Counseled on need for cessation, dangers of abuse. Hypertension: Continue home medications GERD: Continue home medications DVT PPX: Lovenox Code status: Full Discharge Plan: Home Plan to discharge in: 48 Hours - Advance Directives Does patient have a Living Will: No Does patient have a Durable POA for Healthcare: No - Code Status/Comfort Care Code Status Assessed: Yes (Full code) Critical Care: No Time Spent Managing Pts Care (In Minutes): 55
[2022-03-22] MEDS ORDERED: IPRATROPIUM BROM 0.5MG/2.5ML NEB PRN (03:59)
[2022-03-22] MEDS ORDERED: ALBUTEROL 2.5 MG/3 ML NEB SOL NEB PRN (03:59)
[2022-03-22] MEDS ORDERED: ONDANSETRON 4 MG/2 ML VIAL IV PRN (03:59)
[2022-03-22] MEDS ORDERED: LORazepam 2 MG/ML VIAL IV PRN (03:59)
[2022-03-22 04:51] LABS: ALT/SGPT 32 U/L (12-78); AST/SGOT 36 U/L (15-37); Albumin 3.1 g/dL (3.4-5.0); Alkaline Phosphatase 71 U/L (45-117); BUN Blood Urea Nitrogen 5 mg/dL (7-18); Bicarbonate 25 mmol/L (21-32); Bilirubin Total 0.2 mg/dL (0.2-1.0); Glomerular Filtration Rate 115 ml/min (=/>90); Glucose Level 81 mg/dL (74-106); Potassium 3.7 mmol/L (3.5-5.1); Protein, Total 6.4 g/dL (6.4-8.2); Sodium Level 141 mmol/L (136-145)
[2022-03-22 04:52] LABS: Bilirubin Direct < 0.1 mg/dL (0-0.2)
[2022-03-22 05:22] VITALS: BMI 37.9
[2022-03-22 07:44] VITALS: O2SAT 99
[2022-03-22 08:59] VITALS: BP 122/72; TEMP 99
[2022-03-22] MEDS ORDERED: ENOXAPARIN 40 MG/0.4 ML SQ SCH (09:00)
[2022-03-22] MEDS ORDERED: predniSONE 10 MG TAB PO SCH (09:00)
[2022-03-22] MEDS ORDERED: POTASSIUM CL SA 10 MEQ TAB PO ONE (09:00)
[2022-03-22] MEDS ORDERED: DULERA IH SCH ×2 (09:00)
--- NOTE | 2022-03-22 14:58 | EKG ---
Test Date: 2022-03-22 Test Time: 00:50:24 Mold Setter: JAIMEE MEASUREMENT RESULTS: Intervals: Rate: 98 MN: 142 QRSD: 100 QT: 374 QTc: 477 Dulce: P: 71 MN: 142 QRS: 87 T: 83 INTERPRETIVE STATEMENTS: Normal sinus rhythm Incomplete right bundle branch block Nonspecific ST abnormality Abnormal ECG Compared to ECG 02/16/2022 05:12:14 Incomplete right bundle-branch block now present ST (T wave) deviation now present Electronically Signed On 03-22-22 14:54:30 CDT by Rosalino Albert
--- NOTE | 2022-03-22 15:44 | RAD REPORT ---
EXAM DESCRIPTION: RAD - Chest Single View - 03/22/2022 2:16 am CLINICAL HISTORY: 51 years, Male, hypoxia COMPARISON: 02/16/2022 FINDINGS: Single view of the chest was obtained portable. Prior films were compared. External EKG le ads within the [id number] limits diagnosis. The lung volume is decreased. The heart is prominent . The thoracic aorta is unremarkable. Costophrenic angles are sharp. No areas of consolidation or masses are seen. The rest of the soft tissue and bony structures demonstrate to be unremarkable. IMPRESSION: Poor inspiratory effort. Mild cardiomegaly. No focal areas of acute airspace disease Electronically signed by: Ezio Lester MD 03/22/2022 2:46 AM CDT Due to temporary technical issues with the PACS/Fluency reporting system, reports are being signed by the in house radiologists without review as a courtesy to insure prompt reporting. The interpreting radiologist is fully responsible for the content of the report.
== END 2022-03-22 09:15 | disposition left against medical advice (07) | DRG 917 ==
LOC: ER 00:50 → ERHOLD 02:53 → 3RD-ICU 04:23
PROVIDERS: ADMIT Internal Medicine Nephrology; ATTEND Internal Medicine Nephrology
DX: T40.2X1A Poisoning by other opioids, accidental (unintentional), initial encounter (principal); J96.22 Acute and chronic respiratory failure with hypercapnia; J96.21 Acute and chronic respiratory failure with hypoxia; J44.1 Chronic obstructive pulmonary disease with (acute) exacerbation; T42.4X1A Poisoning by benzodiazepines, accidental (unintentional), initial encounter; F10.20 Alcohol dependence, uncomplicated; I10 Essential (primary) hypertension; K21.9 Gastro-esophageal reflux disease without esophagitis; Y92.009 Unspecified place in unspecified non-institutional (private) residence as the place of occurrence of the external cause; Z99.81 Dependence on supplemental oxygen; Z20.822 Contact with and (suspected) exposure to COVID-19; Z53.29 Procedure and treatment not carried out because of patient's decision for other reasons
CPT/HCPCS: 36415; 71045; 80048; 80053; 80076; 80307; 80320; 80329; 81003; 82248; 82805; 85025; 85610; 85730; 93005; 94660; 94760; 99283; J1650; J2405; J7030; J7512; U0003

== ENCOUNTER 2022-04-26 08:01 | Inpatient (IN) | payer SELFPAY ==
--- OUTSIDE RECORDS SUMMARY | 2022-04-26 08:04 | XMS REPORT | Continuity of Care Document ---
:1970 Author Organization [facility] t Address [address] [place] [address] Care Team Providers Name Role Phone LOPEZ Primary Care Physician Unavailable Mg AVRGAS S Attending Clinician Whitney SHAW Attending Clinician Unavailable Raul SUNG Attending Clinician Unavailable BRYAN Attending Clinician Unavailable Whitney SHAW Admitting Clinician Unavailable Problems Condition Condition Condition Status Onset Resolution Last Treating Co mments Source Name Details Category Date Date Treatment Clinician Date Obesity Obesity Disease Active Univers (BMI (BMI 5-16 ity of 30-39.9) 30-39.9) 00:00: [address] Acute Acute Disease Active 2018- Univers exacerbati exacerbati 5-16 it y of on of on of 00:00: [place] chronic chronic 00 Medical obstructiv obstructiv Br anch e e pulmonary pulmonary disease disease (COPD) (COPD) Allergies, Adverse Reactions, Alerts Allergy Allergy Status Severity Reaction(s) Onset Inactive Treating Comm ents Source Name Type Date Date Clinician Lisinopr Propensi Active Anaphylaxis 2018-0 U nivers il ty to 5-16 ity of adverse 00:00: [place] reaction 00 [facility] LISINOPR DRUG Active Anaphylaxis 2018-0 Uni vers [place] INGREDI 5-16 ity of 00:00: [address] Social History Social Habit Start Date Stop Date Quantity Comments Source Exposure to 2022-03-02 2022-03-12 Not sure University SARS-CoV-2 00:00:00 05:08:00 [facility] Branch Alcohol intake 2022-03-09 2022-03-09 4.29 /d University of 00:00:00 00:00:00 [facility] Tobacco use and 2018-03-24 2018-03-24 Current user Univers ity of exposure 00:00:00 00:00:00 [facility] Tobacco Comment 2018-03-24 2018-03-24 trying to quit Unive rsity of 00:00:00 00:00:00 [facility] Sex [birth year] At [birth year] Universit y of 00:00:00 00:00:00 [facility] Smoking Status Start Date Stop Date Source Current every day smoker 2018-03-24 00:00:00 Uni versity of [facility] Medications Ordered Filled Start Stop Current Ordering [...] foLIC acid 2021- [facility] Oral, ity of tablet 1 mg 11:45: 10:41 [place] dose, On Medical Kym Branch 02/20/22 at 0645, LAURYN thiamine 2021- No 100mg 100 mg, [facility] ers (VITAMIN 02-20 Intravenou ity of B1) [...] 0645, STAT ipratropium No 3mL 3 mL, [facility] ers -albuteroL 02-20 Inhalation it y of (DUONEB) 10:30: 09:34 , ONCE, 1 [place] as 0.5 mg-3 00 :00 dose, On Medical mg(2.5 mg Kym Branch base)/3 mL 02/20/22 at nebulizer 0530, solution 3 Routine mL albuterol Yes [id number] 2{puff} Inhale 2 Univers 90 4-14 Puffs ity of mcg/actuati 00:00: every 4 [place] as on inhaler 00 (four) Medical hours as Branch needed for Wheezing or Shortness of Breath. albuterol Yes [id number] 2.5mg Inhale 3 Univers 2.5 mg /3 4-14 mL every 4 ity of mL (0.083 00:00: (four) [place] %) 00 hours. May Medical nebulizer also Branch solution nebulize one extra every 6 hours. budesonide- Yes [id number] 2{puff} Inhale 2 Univers formoteroL 4-14 Puffs 2 ity of 160-4.5 00:00: (two) [place] mcg/actuati 00 times Medical on inhaler daily. Branch triamterene Yes [id number] 1{tbl} Take 1 Univers -hydrochlor 4-14 tablet by ity of othiazid 00:00: mouth [place] 37.5-25 mg 00 daily. Medical tablet Branch chlordiazeP Yes [id number] 25mg Take 1 Univers OXIDE 25 mg 4-14 capsule by it y of capsule 00:00: mouth [place] 00 every 6 Medical (six) Branch hours as needed for Anxiety, Agitation, Heart Rate => 100 or Detox. predniSONE 2021-0 Yes [id number] TAKE ONE Univers 10 mg 4-14 TABLET BY ity of tablet 00:00: MOUTH [place] 00 DAILY Medical Branch albuterol Yes [id number] 2{puff} Inhale 2 Univers 90 4-14 Puffs ity of mcg/actuati 00:00: every 4 Sa[place] as on inhaler 00 (four) Medical hours as Branch needed for Wheezing or Shortness of Breath. albuterol Yes [id number] 2.5mg Inhale 3 Univers 2.5 mg /3 4-14 mL every 4 ity of mL (0.083 00:00: (four) [place] %) 00 hours. May Medical nebulizer also Branch solution nebulize one extra every 6 hours. budesonide- Yes [id number] 2{puff} Inhale 2 Univers formoteroL 4-14 Puffs 2 ity of 160-4.5 00:00: (two) [place] mcg/actuati 00 times Medical on inhaler daily. Branch triamterene Yes [id number] 1{tbl} Take 1 Univers -hydrochlor 4-14 tablet by ity of othiazid 00:00: mouth [place] 37.5-25 mg 00 daily. Medical tablet Branch chlordiazeP 0 Yes [id number] 25mg Take 1 Univers OXIDE 25 mg 4-14 capsule by it y of capsule 00:00: mouth [place] 00 every 6 Medical (six) Branch hours as needed for Anxiety, Agitation, Heart Rate => 100 or Detox. predniSONE 2021-0 Yes [id number] TAKE ONE Univers 10 mg 4-14 TABLET [...] 5-18 by mouth ity of 16:32: daily. [address] triamterene 2017- Yes 1{capsu Take 1 U nivers -hydrochlor 5-18 le} capsule by it y of othiazide 16:32: mouth [place] 37.5-25 mg 14 every Medical per capsule morning. Bran ch amLODIPine 2017- Yes 10mg Take 10 mg U nivers 10 mg 5-18 by mouth ity of tablet 16:32: at [place] 14 bedtime. Medical Branch gabapentin 2017- Yes 100mg Take 100 Un odalys 100 mg 5-18 mg by ity of capsule 16:32: mouth 2 [place] 14 (two) Medical times Branch daily as needed ([facility] pain). foLIC acid Yes 1mg Take 1 mg Un odalys 1 mg tablet 5-18 by mouth ity of 16:32: daily. [address] budesonide- Yes 2{puff} Inhale 2 Univers formoterol 5-18 Puffs 2 ity of 160-4.5 00:00: (two) [place] mcg/actuati 00 times Medical on inhaler daily. Branch budesonide- Yes 2{puff} Inhale 2 Univers formoterol 5-18 Puffs 2 ity of 160-4.5 00:00: (two) [place] mcg/actuati 00 times Medical on inhaler daily. Branch Immunizations Ordered Filled Immunization Date Status Comments [facility] e Immunization Name Name SARS-COV-2 COVID-19 2021-02-03 Completed Unive rsity of PFIZER VACCINE 00:00:00 [facility] SARS-COV-2 COVID-19 2021-02-03 Completed Unive rsity of PFIZER VACCINE 00:00:00 [facility] SARS-COV-2 COVID-19 2021-01-13 Completed Unive rsity of PFIZER VACCINE 00:00:00 [facility] SARS-COV-2 COVID-19 2021-01-13 Completed Unive rsity of PFIZER VACCINE 00:00:00 [facility] Pneumococcal 2018-03-26 Completed University o f Polysaccharide, 00:00:00 [place] Med ical PPSV23 (PNEUMOVAX) [place] Influenza Virus 2018-03-26 Completed Universit y of Vaccine Quad IM 3+ 00:00:00 [facility] Branch Pneumococcal 2018-03-26 Completed University o f Polysaccharide, 00:00:00 [place] Med ical PPSV23 (PNEUMOVAX) Branch Influenza Virus 2018-03-26 Completed Universit y of Vaccine Quad IM 3+ 00:00:00 [facility] Vital Signs Vital Name Observation Time Observation Value Comments Source Systolic blood 2022-03-12 10:13:00 119 mm[Hg] Univer sity of pressure [facility] Diastolic blood 2022-03-12 10:13:00 75 mm[Hg] Unive rsity of pressure [facility] Heart rate 2022-03-12 10:13:00 105 /min Universi ty of [facility] Body temperature 2022-03-12 10:13:00 37.28 Debbie Univ ersity [facility] Respiratory rate 2022-03-12 10:13:00 19 /min Univ ersity of [facility] Body height 2022-03-12 10:13:00 162.6 cm Universi ty of [facility] Body weight 2022-03-12 10:13:00 99.791 kg Universi ty of [facility] BMI 2022-03-12 10:13:00 37.76 kg/m2 Universi ty of [facility] Oxygen saturation in 2022-03-12 10:13:00 96 /min University of Arterial blood by [place] [employer] [facility] Pulse oximetry Branch Systolic blood 2022-02-20 11:57:00 155 mm[Hg] Univer sity of pressure [facility] Diastolic blood 2022-02-20 11:57:00 88 mm[Hg] Unive rsity of pressure [facility] Heart rate 2022-02-20 11:57:00 105 /min Universi ty of [facility] Respiratory rate 2022-02-20 11:57:00 18 /min Univ ersity [facility] Oxygen saturation in 2022-02-20 11:57:00 100 /min University of Arterial blood by [place] [employer] keo Pulse oximetry Branch Body temperature 2022-02-20 09:25:00 37 Debbie Univ ersity of [facility] Body height 2022-02-20 09:25:00 162.6 cm Universi ty of [facility] Body weight 2022-02-20 09:25:00 96.163 kg Universi ty of [facility] BMI 2022-02-20 09:25:00 36.39 kg/m2 [facility] Procedures Procedure Date / Time Performed Performing Clinician Sourc e CONSENT/REFUSAL FOR 2022-03-12 10:03:12 [facility] Branch TREATMENT XR CHEST 1 VW 2022-02-20 09:59:00 Christy Shaw [facility] LIPASE 2022-02-20 09:30:00 Chrsity Shaw [facility] TROPONIN I 2022-02-20 09:30:00 Christy Shaw [facility] COMP. METABOLIC PANEL 2022-02-20 09:30:00 Christy Shaw [facility] ([id number]) [facility] CBC WITH DIFF 2022-02-20 09:30:00 Christy Shaw [facility] N-TERMINAL PRO-BNP 2022-02-20 09:30:00 Christy Shaw [facility] NOTICE OF PRIVACY 2022-02-20 09:15:02 Doctor Unassigned, No Univ [facility] PRACTICES Name [facility] CONSENT/REFUSAL FOR 2022-02-20 09:14:47 Doctor Unassigned, No Un iversity of [place] [facility] TRE[facility] Encounters Start End Encounter Admission Attending Care Care Encounter Source Date/Time Date/Time Type Type Clinicians Facility Department ID 2022-03-12 2022-03-12 Emergency [facility] [id number] Univers 05:15:00 06:41:00 Christy SMITH [id number] radha [facility] [id number] [facility] [id number] [facility] keo 084 Branch 2022-03-12 2022-03-12 Emergency [facility] E[facility] [id number] Univers 05:15:00 06:41:00 CHRISTY garcia [facility] 2022-02-20 2022-02-20 Emergency [facility] ERT [id number] Univers 04:17:00 07:16:00 WAKILI [facility] 2022-02-20 2022-02-20 [facility] [id number] Univers 04:17:00 07:16:00 Christy SMITH [id number] [facility] [id number] [facility] [id number] [facility] 084 Branch 2021-02-03 2021-02-03 Outpatient R PINEDA, [facility] [id number] Univers 11:10:00 11:10:00 DENISE [facility] 2021-01-13 2021-01-13 Outpatient [facility] [id number] Univers 11:20:00 11:20:00 [facility] 2020-11-10 2020-11-10 Outpatient R BRYAN, [facility] [id number] Univers 08:20:00 08:20:00 KARLEY [facility] Results Test Description Test Time Test Comments Results Result Comments Source TROPONIN I 2022-02-20 10:16:22 Test Item Value Reference Range Interpretation Comme nts TROPONIN I (test code = 0.007 ng/mL See_Comment [Au tomated message] The 7571031518) system which ge nerated this result tra [...] biotin. Lab Interpretation Normal (test code = 73477-1) [id number] 10:13:01 Test Item Value Reference Range Interpretation Comments NT-proBNP (test code 52 pg/mL See_Comment [Autom ated = [id number]) message] The system which generated this result transmitted reference range : <=125. The reference range was not used to interpret this result as normal/abnormal . LOUISE (test code = LOUISE) Biotin has been reported to cause a negative bias, interpret results relative to patient's use of biotin. Lab Interpretation Normal (test code = 33267-8) [facility]. METABOLIC PANEL (61275)2022-02-20 10:04:02 Test Item Value Reference Range Interpretation Comments NA (test code = 137 mmol/L 135-145 3583992692) K (test code = 3.6 mmol/L 3.5-5.0 4081686164) CL (test code = 99 mmol/L 98-108 4163415934) CO2 TOTAL (test code = 25 mmol/L 23-31 8543225628) AGAP (test code = 2-16 1936252946) BUN (test code = 6 mg/dL 7-23 L 8218851526) GLUCOSE (test code = 88 mg/dL 70-110 2330612271) CREATININE (test code = 0.55 mg/dL 0.60-1.25 L 4610234368) TOTAL BILI (test code = 0.8 mg/dL 0.1-1.3 9624497167) CALCIUM (test code = 8.9 mg/dL 8.6-10.6 4434371671) T PROTEIN (test code = 7.5 g/dL 6.3-8.2 9501619835) ALBUMIN (test code = 4.8 g/dL 3.5-5.0 3491383695) ALK PHOS (test code = 113 U/L 34-122 4432387992) ALTv (test code = 84 U/L 5-50 H 1742-6) AST(SGOT) (test code = 107 U/L 13-40 H 2246728779) eGFR (test code = mL/min/1.73m2 8735286576) LOUISE (test code = LOUISE) Association of [...] tests). Lab Interpretation Abnormal (test code = 66225-2) [facility] [id number] 10:03:21 Test Item Value Reference Range Interpretation Comments LIPASE (test code = 6085418781) 193 U/L 0-220 Lab Interpretation (test code = Normal 21883-4) [facility] [id number] 09:39:17 Test Item Value Reference Range Interpretation Comments WBC (test code = See_Comment [Automated 3757-2) message] The sy stem which generated this result transmitted reference range : 4.20 - 10.70 10*3/?L. The reference range was not used to interpret this result as normal/abnormal . RBC (test code = See_Comment [Automated 041-3) message] The sy stem which generated this [...] RDW-SD (test code = 44.4 fL 38.5-51.6 56442-1) RDW-CV (test code = 11.9 % 12.1-15.4 L 788-0) PLT (test code = See_Comment [Automated 777-3) message] The sy stem which generated this result transmitted reference range : 150 - 328 10*3/ ?L. The reference r ernie was not used to interpret this result as normal/abnormal . MPV (test code = 9.2 fL 9.8-13.0 L 78778-2) NRBC/100 WBC (test See_Comment [Automat ed code = 7799021030) message] The system which generated this result transmitted reference range : 0.0 - 10.0 /100 WBCs. The refer ence range was not u sed to interpret th is result as normal/abnormal . NRBC x10^3 (test code <0.01 See_Comment [Auto mated = 5601261553) message] The s ystem which generated this result transmitted reference range : 10*3/?L. The reference range was not used to interpret this result as normal/abnormal . GRAN MAT (NEUT) % 69.9 % (test code = 770-8) IMM GRAN % (test code 1.50 % = 1586011345) LYMPH % (test code = 18.9 % 736-9) MONO % (test code = 7.0 % 5905-5) EOS % (test code = 1.9 % 713-8) BASO % (test code = 0.8 % 706-2) GRAN MAT x10^3(ANC) 7.15 10*3/uL 1.99-6.95 H (test code = 3846311804) IMM GRAN x10^3 (test 0.15 10*3/uL 0.00-0.06 H code = 5408549507) LYMPH x10^3 (test code 1.93 10*3/uL 1.09-3.23 = 731-0) MONO x10^3 (test code 0.72 10*3/uL 0.36-1.02 = 742-7) EOS x10^3 (test code = 0.19 10*3/uL 0.06-0.53 711-2) BASO x10^3 (test code 0.08 10*3/uL 0.01-0.09 = 704-7) Lab Interpretation Abnormal (test code = 67755-9) [facility]"
[2022-04-26] MEDS ORDERED: METHYLPREDNISOLONE 125 MG INJ ONE (08:41)
[2022-04-26] MEDS ORDERED: THIAMINE 200 MG/2 ML INJ ONE (08:41)
[2022-04-26] MEDS ORDERED: DIAZEPAM 10 MG/2 ML INJ SYRINGE ONE ×3 (08:41→19:50)
[2022-04-26] MEDS ORDERED: ONDANSETRON 4 MG/2 ML VIAL ONE (08:42)
[2022-04-26] MEDS ORDERED: LEVALBUTEROL 1.25 MG/3 ML NEB ONE (08:42)
[2022-04-26] MEDS ORDERED: IPRATROPIUM BROM 0.5MG/2.5ML ONE (08:42)
[2022-04-26] MEDS ORDERED: NA CHLORIDE 0.9% 1,000 ML ONE (08:43)
[2022-04-26] MEDS ORDERED: FOLIC ACID 5 MG/ML VIAL ONE (08:43)
[2022-04-26] MEDS ORDERED: MULTIVITAMINS 10 ML VIAL (INJ) IV ONE (08:43)
[2022-04-26 08:49] LABS: Absolute Lymphocytes (CBC) 0.7 K/uL (0.7-4.9); Hematocrit 41.4 % (39.6-49.0); MCV 100.9 fL (80-100); MPV 7.4 fL (7.6-11.3); RBC Red Blood Cell Count 4.11 M/uL (4.33-5.43)
[2022-04-26 10:26] LABS: Albumin 3.4 g/dL (3.4-5.0); Bilirubin Total 0.6 mg/dL (0.2-1.0); Potassium 3.6 mmol/L (3.5-5.1); Protein, Total 6.8 g/dL (6.4-8.2)
--- NOTE | 2022-04-26 10:28 | RAD REPORT ---
EXAM DESCRIPTION: CT - Head Brain Wo Cont - 04/26/2022 10:09 am CLINICAL HISTORY: Headache, classic migraine COMPARISON: Ct Stroke Brain Wo Cont dated 06/10/2020; Head Brain Wo Cont dated 01/07/2018 TECHNIQUE: All CT scans are performed using dose optimization technique as appropriate and may inclu de automated exposure control or mA/KV adjustment according to patient size. FINDINGS: No intracranial hemorrhage, hydrocephalus or extra-axial fluid collection.No areas of brai n edema or evidence of midline shift. The paranasal sinuses and mastoids are clear. The calvarium is intact. IMPRESSION: No acute intracranial abnormality.
--- NOTE | 2022-04-26 10:29 | RAD REPORT ---
EXAM DESCRIPTION: CTAbdomen Pelvis W Contrast - 04/26/2022 10:14 am CLINICAL HISTORY: Abdominal pain. Abdominal pain, acute, nonlocalized, neutropenic COMPARISON: Abdomen Pelvis W Contrast dated 02/16/2022; Abdomen Pelvis W Contrast dated 11/14/2018; Abdomen Pelvis W Contrast dated 01/05/2017; CT ABD PELVIS W CONTRAST dated 04/17/2013 TECHNIQUE: Biphasic CT imaging of the abdomen and pelvis was performed with 100 ml non-ionic IV cont rast. All CT scans are performed using dose optimization technique as appropriate and may include automated exposure control or mA/KV adjustment according to patient size. FINDINGS: The lung bases are clear. The liver demonstrates diffuse fatty infiltration. Spleen, pancreas, adrenal glands and right kidney are within normal limits. Punctate calculus is present left kidney. No hydronephrosis. No bowel obstruction, free air, free fluid or abscess. The appendix is normal. No evidence of signi ficant lymphadenopathy. Mild lower lumbar degenerative changes. IMPRESSION: Prominent fatty liver. Punctate left renal calculus without hydronephrosis
--- NOTE | 2022-04-26 11:32 | ER ---
Nurse's Notes [facility] Name: Randy Briones Age: 51 yrs Sex: Male : 1970 Arrival Date: 04/26/2022 Time: 08:04 Bed 6 Private MD: Diagnosis: Alcohol dependence with withdrawal, uncomplicated Presentation: 04/26 08:04 Chief complaint: EMS states: Pt c/o general weakness and no eating x 1 week, also ph reports binge drinking x 1 week, last drink was last night at approx 9 pm last night, states that the L side of his face fells numb and also reports stomach pain, BP 137/74, HR 124, Spo2 97% on 2L NC home O2, 97.7T. 08:07 Coronavirus screen: Vaccine status: Patient reports receiving the 2nd dose of the covid ph vaccine. Ebola Screen: No symptoms or risks identified at this time. Initial Sepsis Screen: Does the patient meet any 2 criteria? No. Patient's initial sepsis screen is negative. Does the patient have a suspected source of infection? No. Patient's initial sepsis screen is negative. Risk Assessment: Do you want to hurt yourself or someone else? Patient reports no desire to harm self or others. Onset of symptoms was April 26, 2022. 08:07 Method Of Arrival: EMS: [facility] 08:07 Acuity: CANDACE 2 Triage Assessment: 08:19 General: Appears in no apparent distress. uncomfortable, obese, Behavior is ph cooperative, appropriate for age, anxious, Reports ETOH use x 1 week. Pain: Complains of pain in abdomen. Neuro: Level of Consciousness is awake, alert, obeys commands, Oriented to person, place, time, situation, Reports paresthesias in left side of forehead, left spiritism, left zygomatic area, left cheek and left mandible. Cardiovascular: Capillary refill < 3 seconds in bilateral fingers Patient's skin is warm and dry. Respiratory: Airway is patent Respiratory effort is even, unlabored, Respiratory pattern is tachypnea. GI: Abdomen is round distended, Reports lower abdominal pain, upper abdominal pain, diarrhea. Derm: Skin is diaphoretic, Skin is red. Musculoskeletal: Circulation, motion, and sensation intact. Range of motion: intact in all extremities. Historical: - Allergies: 08:13 Lisinopril; ph - Home Meds: 08:13 Advair Diskus 250-50 mcg/dose Inhl dsdv 1 puff 2 times per day [Active]; albuterol ph sulfate 2.5 mg /3 mL (0.083 %) Inhl nebu 3 mL 3 times per day [Active]; gabapentin 100 mg Oral cap 3 caps 3 times per day [Active]; montelukast 10 mg Oral tab 1 tab once daily [Active]; Nexium 40 mg Oral cpDR 1 cap 2 times per day [Active]; Norvasc 10 mg Oral tab once daily [Active]; Prednisone Oral [Active]; Spiriva with HandiHaler inhalation [Active]; Symbicort inhalation [Active]; Triamterene-Hydrochlorothiazid Oral once daily [Active]; - PMHx: 08:13 Alcoholism; COPD; Hypertension; ph - PSHx: 08:13 Amputation of left index finger; ph - Immunization history:: Adult Immunizations unknown. - Social history:: Smoking status: Patient reports the use of cigarette tobacco products, smokes one pack cigarettes per day. - Family history:: not pertinent. Screenin:15 Clinical [place] Withdrawal Assessment for Alcohol, revised (CIWA-Ar): ph Nausea/Vomitin - No nausea or vomiting Headache: 0 - Not present Paroxysmal Sweats: 4 - Beads of sweat obvious on forehead Anxiety: 4 - Moderately anxious, guarded Agitation: 1 - Somewhat more than normal activity Tremor: 4 - Moderate when client's hands extended Auditory Disturbances: 0 - Not present Visual Disturbances: 0 - Not present Tactile Disturbances: 3 - Moderate paresthesias Orientation and Clouding of Sensorium: 0 - Oriented and can do serial additions Total Score: 16 to 20: Modest Withdrawal. Abuse screen: Denies threats or abuse. Denies injuries from another. Nutritional screening: No deficits noted. Tuberculosis screening: No symptoms or risk factors identified. Fall Risk None identified. Assessment: 08:21 Reassessment: Dr Subramanian at bedside. General: SEE TRIAGE ASSESSMENT. ph 09:12 Reassessment: Patient appears in no apparent distress at this time. Patient and/or ph family updated on plan of care and expected duration. Pain level reassessed. Patient is alert, oriented x 3, equal unlabored respirations, skin warm/dry/pink. 10:11 Reassessment: Pt in radiology for CT. ph 12:30 Reassessment: Patient appears in no apparent distress at this time. Patient and/or ph family updated on plan of care and expected duration. Pain level reassessed. Patient is alert, oriented x 3, equal unlabored respirations, skin warm/dry/pink. Pt eating lunch, tremors noted when pt attempting to sit up, tolerating food well. 13:48 Reassessment: Patient appears in no apparent distress at this time. Patient and/or ph family updated on plan of care and expected duration. Pain level reassessed. Pt awake and alert, resting comfortably, slight tremors still noted, awaiting room assignment. Vital Signs: 08:05 BP 139 / 98; Pulse 121; Resp 20; Temp 98.5(O); Pulse Ox 98% on 4 lpm NC; mb7 08:07 Weight 96.16 kg; Height 5 ft. 9 in. (175.26 cm); ph 09:13 BP 165 / 121; Pulse 119; Resp 18; Pulse Ox 98% on Nebulizer Mask; ph 10:45 BP 148 / 98; Pulse 110; Resp 18; Pulse Ox 98% 4 lpm ; ph 11:30 BP 139 / 71; Pulse 108; Resp 18; Pulse Ox 98% on 4 lpm NC; ph 12:30 BP 156 / 85; Pulse 103; Resp 18; Pulse Ox 97% on 4 lpm NC; ph 13:30 BP 117 / 39; Pulse 93; Resp 16; Pulse Ox 99% on 4 lpm NC; ph 08:07 Body Mass Index 31.31 (96.16 kg, 175.26 cm) ph Vitals: 09:13 Cardiac Rhythm Assessment Sinus tach. ph ED Course: 08:04 Patient arrived in ED. ph 08:05 Patient has correct armband on for positive identification. Bed in low position. Call mb7 light in reach. Side rails up X 1. Door closed. Noise minimized. 08:05 Client placed on continuous cardiac and pulse oximetry monitoring. NIBP monitoring mb7 applied. environmental monitoring technician on. Pulse ox on. 08:09 Satnam Subramanian MD is Attending Physician. ma2 08:13 Triage completed. ph 08:18 Arm band placed on Patient placed in an exam room, on a stretcher, on oxygen, on ph cardiac rehab nurse, on pulse oximetry. 08:26 Angle Hoover, RN is Primary Nurse. ph 09:13 Maintain EMS IV. Dressing intact. Good blood return noted. Site clean \T\ dry. Gauge \T\ ph site: 20 RAC. IV is patent, with fluids infusing freely, with good blood return, Flushed right antecubital with 5 ml normal saline. 10:10 CT Head Brain wo Cont In Process Unspecified. EDMS 10:16 CT Abd/Pelvis - IV Contrast Only In Process Unspecified. EDMS 11:31 Satnam Martin MD is Hospitalizing Provider. ma2 13:51 No provider procedures requiring assistance completed. Patient admitted, IV remains in ph place. 19:11 Primary Nurse role handed off by Angle Hoover RN as6 19:11 Parish Chapman RN is Primary Nurse. as6 Administered Medications: 08:48 Drug: Banana Bag - (NS 0.9% 1000 ml, foLIC Acid 1 mg, Thiamine 100 mg, Multivitamin 1 scott amp) Route: IV; Rate: calculated rate; Site: right antecubital; 13:51 Follow up: Response: No adverse reaction; IV Status: Infusion continued upon admission ph 08:48 Drug: Valium (diazepam) 10 mg Route: IVP; Site: right antecubital; scott 08:49 Follow up: Response: No adverse reaction scott 10:49 Follow up: Response: No adverse reaction; RASS: Alert and Calm (0) ph 08:48 Drug: AtroVENT (ipratropium) Aerosol 0.5 mg Route: Inhalation; scott 10:49 Follow up: Response: No adverse reaction ph 08:48 Drug: AtroVENT (ipratropium) Aerosol 0.5 mg Route: Inhalation; scott 08:48 Drug: AtroVENT (ipratropium) Aerosol 0.5 mg Route: Inhalation; scott 08:48 Drug: SOLU-Medrol (methylPrednisoLONE) 125 mg Route: IVP; Site: right antecubital; scott 08:49 Follow up: Response: No adverse reaction scott 10:49 Follow up: Response: No adverse reaction ph 08:48 Drug: Xopenex (levalbuterol) 1.25 mg Route: Inhalation; scott 10:49 Follow up: Response: No adverse reaction ph 08:49 Drug: Zofran (Ondansetron) 4 mg Route: IVP; Site: right antecubital; scott 08:49 Follow up: Response: No adverse reaction scott 10:49 Drug: Valium (diazepam) 10 mg Route: IVP; Site: right antecubital; ph 13:51 Follow up: Response: No adverse reaction; RASS: Drowsy (-1) ph Medication: 08:18 VIS not applicable for this client. ph Outcome: 11:31 Decision to Hospitalize by Provider. ma2 19:48 Admitted to ICU accompanied by nurse, via stretcher, room 2, with oxygen, on monitor, as6 with chart. 19:48 Condition: stable 19:48 Instructed on the need for admit. 19:53 Patient left the ED. as6 Signatures: Dispatcher [employer] EDAngle Avendano RN RN Satnam Subramanian MD MD ma2 Parish Chapman RN RN as6 Bianca Shi mb7 Au-StagerMyra RN RN ha Corrections: (The following items were deleted from the chart) 08:13 08:04 Chief complaint: EMS states: Pt c/o general weakness and no eating x 1 week, also ph reports binge drinking ph
--- NOTE | 2022-04-26 11:32 | EDPHYS ---
Physician Documentation [facility] Name: Randy Briones Age: 51 yrs Sex: Male : 1970 Arrival Date: 04/26/2022 Time: 08:04 Bed 6 Private MD: ED Physician Satnam Subramanian HPI: 04/26 08:29 This 51 yrs old Male presents to ER via EMS with complaints of General Weakness. ma2 08:29 Onset: The symptoms/episode began/occurred gradually, 1 day(s) ago. Associated signs ma2 and symptoms: Pertinent negatives: nausea and vomiting, chest pain, diarrhea, fever, headache, testicular pain, vomiting, vomiting blood. Severity of pain: At its worst the pain was moderate in the emergency department the pain is unchanged. 51-year-old male has been binge drinking, presents with left-sided facial pain, diarrhea generalized weakness,. Historical: - Allergies: 08:13 Lisinopril; ph - Home Meds: 08:13 Advair Diskus 250-50 mcg/dose Inhl dsdv 1 puff 2 times per day [Active]; albuterol ph sulfate 2.5 mg /3 mL (0.083 %) Inhl nebu 3 mL 3 times per day [Active]; gabapentin 100 mg Oral cap 3 caps 3 times per day [Active]; montelukast 10 mg Oral tab 1 tab once daily [Active]; Nexium 40 mg Oral cpDR 1 cap 2 times per day [Active]; Norvasc 10 mg Oral tab once daily [Active]; Prednisone Oral [Active]; Spiriva with HandiHaler inhalation [Active]; Symbicort inhalation [Active]; Triamterene-Hydrochlorothiazid Oral once daily [Active]; - PMHx: 08:13 Alcoholism; COPD; Hypertension; ph - PSHx: 08:13 Amputation of left index finger; ph - Immunization history:: Adult Immunizations unknown. - Social history:: Smoking status: Patient reports the use of cigarette tobacco products, smokes one pack cigarettes per day. - Family history:: not pertinent. ROS: 08:29 Constitutional: Negative for fever, chills, and weight loss. ma2 08:29 All other systems are negative. Exam: 08:29 Constitutional: This is a well developed, well nourished patient who is awake, alert, ma2 and in no acute distress. Head/Face: Normocephalic, atraumatic. Eyes: Pupils equal round and reactive to light, extra-ocular motions intact. Lids and lashes normal. Conjunctiva and sclera are non-icteric and not injected. Cornea within normal limits. Periorbital areas with no swelling, redness, or edema. ENT: Nares patent. No nasal discharge, no septal abnormalities noted. Tympanic membranes are normal and external auditory canals are clear. Oropharynx with no redness, swelling, or masses, exudates, or evidence of obstruction, uvula midline. Mucous membranes moist. Neck: Trachea midline, no thyromegaly or masses palpated, and no cervical lymphadenopathy. Supple, full range of motion without nuchal rigidity, or vertebral point tenderness. No Meningismus. Chest/axilla: Normal chest wall appearance and motion. Nontender with no deformity. No lesions are appreciated. Cardiovascular: Regular rate and rhythm with a normal S1 and S2. No gallops, murmurs, or rubs. Normal PMI, no JVD. No pulse deficits. Respiratory: Lungs have equal breath sounds bilaterally, clear to auscultation and percussion. No rales, rhonchi or wheezes noted. No increased work of breathing, no retractions or nasal flaring. Abdomen/GI: Soft, non-tender, with normal bowel sounds. No distension or tympany. No guarding or rebound. No evidence of tenderness throughout. Skin: Warm, dry with normal turgor. Normal color with no rashes, no lesions, and no evidence of cellulitis. MS/ Extremity: Pulses equal, no cyanosis. Neurovascular intact. Full, normal range of motion. Neuro: Awake and alert, GCS 15, oriented to person, place, time, and situation. Cranial nerves II-XII grossly intact. Motor strength 5/5 in all extremities. Sensory grossly intact. Cerebellar exam normal. Normal gait. Vital Signs: 08:05 BP 139 / 98; Pulse 121; Resp 20; Temp 98.5(O); Pulse Ox 98% on 4 lpm NC; mb7 08:07 Weight 96.16 kg; Height 5 ft. 9 in. (175.26 cm); ph 09:13 BP 165 / 121; Pulse 119; Resp 18; Pulse Ox 98% on Nebulizer Mask; ph 10:45 BP 148 / 98; Pulse 110; Resp 18; Pulse Ox 98% 4 lpm ; ph 11:30 BP 139 / 71; Pulse 108; Resp 18; Pulse Ox 98% on 4 lpm NC; ph 12:30 BP 156 / 85; Pulse 103; Resp 18; Pulse Ox 97% on 4 lpm NC; ph 13:30 BP 117 / 39; Pulse 93; Resp 16; Pulse Ox 99% on 4 lpm NC; ph 08:07 Body Mass Index 31.31 (96.16 kg, 175.26 cm) ph MDM: 08:09 Patient medically screened. ma2 11:30 Differential diagnosis: gastroesophageal reflux disease, Irritable bowel syndrome, ma2 non-specific abd pain. Differential diagnosis: Likely alcohol withdrawal, patient's states he has been binge drinking alcohol. Data reviewed: vital signs, nurses notes. Counseling: I had a detailed discussion with the patient and/or guardian regarding: the historical points, exam findings, and any diagnostic results supporting the discharge/admit diagnosis, the presence of at least one elevated blood pressure reading (>120/80) during this emergency department visit, the need for outpatient follow up. Response to treatment: the patient's symptoms have markedly improved after treatment. 04/26 08:24 Order name: CBC with Diff; Complete Time: 10:30 ma2 04/26 08:24 Order name: CMP; Complete Time: 10:30 ma2 04/26 08:24 Order name: Lipase; Complete Time: 10:30 ma2 04/26 08:24 Order name: Urine Microscopic Only mt2 04/26 11:51 Order name: COVID-19 SARS RT PCR (Document "Date of Onset" if Symptomatic) ph 04/26 12:42 Order name: CBC with Automated Diff EDMS 04/26 12:42 Order name: CBC with Automated Diff EDMS 04/26 12:42 Order name: Comprehensive Metabolic Panel EDMS 04/26 12:42 Order name: Comprehensive Metabolic Panel EDMS 04/26 12:42 Order name: Magnesium EDMS 04/26 12:42 Order name: Magnesium EDMS 04/26 12:42 Order name: Phosphorus EDMS 04/26 12:42 Order name: Phosphorus EDMS 04/26 12:42 Order name: Protime (+INR) EDMS 04/26 08:24 Order name: CT Abd/Pelvis - IV Contrast Only; Complete Time: 10:30 ma2 04/26 08:24 Order name: IV Saline Lock; Complete Time: 08:49 ma2 04/26 08:24 Order name: Labs collected and sent; Complete Time: 08:49 ma2 04/26 08:24 Order name: CT Head Brain wo Cont; Complete Time: 10:30 ma2 04/26 10:54 Order name: Diet Regular; Complete Time: 10:54 ph 04/26 12:42 Order name: Protime (+INR) EDMS 04/26 12:42 Order name: PTT, Activated Partial Thromb EDMS 04/26 12:42 Order name: PTT, Activated Partial Thromb EDMS 04/26 18:34 Order name: Urine Dipstick-Ancillary EDMS 04/26 08:24 Order name: Urine Dipstick-Ancillary (obtain specimen); Complete Time: 13:51 ma2 Administered Medications: 08:48 Drug: Banana Bag - (NS 0.9% 1000 ml, foLIC Acid 1 mg, Thiamine 100 mg, Multivitamin 1 scott amp) Route: IV; Rate: calculated rate; Site: right antecubital; 13:51 Follow up: Response: No adverse reaction; IV Status: Infusion continued upon admission ph 08:48 Drug: Valium (diazepam) 10 mg Route: IVP; Site: right antecubital; scott 08:49 Follow up: Response: No adverse reaction scott 10:49 Follow up: Response: No adverse reaction; RASS: Alert and Calm (0) ph 08:48 Drug: AtroVENT (ipratropium) Aerosol 0.5 mg Route: Inhalation; scott 10:49 Follow up: Response: No adverse reaction ph 08:48 Drug: AtroVENT (ipratropium) Aerosol 0.5 mg Route: Inhalation; scott 08:48 Drug: AtroVENT (ipratropium) Aerosol 0.5 mg Route: Inhalation; scott 08:48 Drug: SOLU-Medrol (methylPrednisoLONE) 125 mg Route: IVP; Site: right antecubital; scott 08:49 Follow up: Response: No adverse reaction scott 10:49 Follow up: Response: No adverse reaction ph 08:48 Drug: Xopenex (levalbuterol) 1.25 mg Route: Inhalation; scott 10:49 Follow up: Response: No adverse reaction ph 08:49 Drug: Zofran (Ondansetron) 4 mg Route: IVP; Site: right antecubital; scott 08:49 Follow up: Response: No adverse reaction scott 10:49 Drug: Valium (diazepam) 10 mg Route: IVP; Site: right antecubital; ph 13:51 Follow up: Response: No adverse reaction; RASS: Drowsy (-1) ph Disposition Summary: 04/26/22 11:31 Hospitalization Ordered Hospitalization Status: Observation ma2 Provider: Satnam Martin Condition: Stable ma2 Problem: new ma2 Symptoms: are unchanged ma2 Bed/Room Type: Standard ma2 Location: Intensive Care Unit(04/26/22 18:36) dw Room Assignment: 2-(04/26/22 18:36) Diagnosis - Alcohol dependence with withdrawal, uncomplicated ma2 Forms: - Medication Reconciliation Form ma2 - SBAR form ma2 Signatures: Dispatcher [employer] Chelsey Michaels RN RN dw Smirch, Shelby, RN RN Angle Hoover RN RN Satnam Subramanian MD MD [facility] Myra Burnett RN RN Corrections: (The following items were deleted from the chart) 16:52 11:31 Telemetry/MedSurg (observation) ma2 ss 16:52 11:31 ma2 ss 18:36 16:52 [facility] ER HOLD ss dw 18:36 16:52 ERHOLD- ss dw
[2022-04-26] MEDS ORDERED: FLUMAZENIL 0.1 MG/ML (5 mL VIAL) IV PRN (12:36)
[2022-04-26] MEDS ORDERED: ONDANSETRON 4 MG/2 ML VIAL IV PRN (12:36)
[2022-04-26] MEDS: FOLIC ACID 1 MG, MULTIVITAMINS INJ 10 ML, THIAMINE HCL 100 MG in NA CHLORIDE 0.9% 1,000 ML IV SCH (15:00)
--- NOTE | 2022-04-26 17:50 | P.HP ---
Certification for Inpatient Patient admitted to: Inpatient With expected LOS: >2 Midnights Patient will require the following post-hospital care: None Practitioner: I am a practitioner with admitting privileges, knowledge of patient current condition, hospital course, and medical plan of care. Services: Services provided to patient in accordance with Admission requirements found in Title 42 Section 412.3 of the Code of Federal Regulations Patient History Date of Service: 04/26/22 Reason for admission: Alcohol abuse History of Present Illness: patient is a 51-year-old gentleman who came to the hospital after a 30 day alcohol binge. He was completely intoxicated and diaphoretic and having tremors when he arrived to the emergency room. Patient has been told to refrain from alcohol as he has a history of gastrointestinal bleeding. However, he is addicted and he is unable to refrain from his alcohol use. Patient was admitted to the hospital for further treatment. He will be given IV fluids with a banana bag as well as Librium, Ativan /Valium as needed and will monitor his electrolytes closely. Patient will be admitted to the intensive care unit. Allergies lisinopril Allergy (Verified 04/26/22 13:11) Shortness of breath BC powder Allergy (Mild, Uncoded 04/26/22 13:10) Hives Lisinopril Allergy (Mild, Uncoded 04/26/22 13:10) Shortness of breath Home Medications: Thiamine Mononitrate (Vit B1) [Vitamin B-1] 1 tab PO BID 07/19/18 Esomeprazole Mag Trihydrate [Nexium] 1 tab PO DAILY 02/13/19 Amlodipine [Norvasc*] 5 mg PO DAILY 01/03/21 Budesonide/Formoterol Fumarate [Symbicort 160-4.5 Mcg Inhaler] 2 puff IH BID 01/03/21 Spironolactone [Aldactone*] 50 mg PO DAILY 01/03/21 Tiotropium Laura [Spiriva] 18 mcg IH DAILY PRN 01/03/21 Albuterol Neb [Proventil 0.083% Neb Soln] 2.5 mg NEB [id number] PRN #120 amp 01/04/21 Nebulizer [Aeroneb Go Nebulizer] 1 each MC TID #1 each 01/04/21 predniSONE [Prednisone] 40 mg PO DAILY #5 tablet 01/04/21 LORazepam [Lorazepam] 1 tab PO DAILY 03/21/21 Naltrexone HCl Dihydrate 50 gm PO DAILY 03/21/21 predniSONE [Prednisone] 2 tab PO DAILY 03/21/21 - Past Medical/Surgical History Diabetic: No -: Hypertension -: COPD on chronic steroids -: Tobacco abuse -: Alcohol abuse -: GERD -: Obesity -: 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 - Family History Mother Medical History: Diabetes, Cancer Notes: colon cancer Father Medical History: Lung disease Notes: COPD - Social History Smoking Status: Former smoker Alcohol use: Yes CD- Drugs: No Caffeine use: Yes Review of Systems 10-point ROS is otherwise unremarkable Physical Examination - Vital Signs Temperature: 98 F Blood Pressure: 140/80 Pulse: 80 Respirations: 18 Pulse Ox (%): 95 - Physical Exam General: Alert, In no apparent distress, Oriented x3 HEENT: Atraumatic, PERRLA, Mucous membr. moist/pink, EOMI, Sclerae nonicteric Neck: Supple, 2+ carotid pulse no bruit, No LAD, Without JVD or thyroid abnormality Respiratory: Clear to auscultation bilaterally, Normal air movement Cardiovascular: Regular rate/rhythm, Normal S1 S2, No murmurs Gastrointestinal: Normal bowel sounds, Soft and benign, Non-distended, No tenderness, No rebound, No guarding Musculoskeletal: No clubbing, No swelling, No tenderness Integumentary: No rashes Neurological: Normal gait, Normal speech, Normal strength at 5/5 x4 extr, Normal tone, Sensation intact, Normal affect Lymphatics: No axilla or inguinal lymphadenopathy - Studies Laboratory Data (last 24 hrs) 04/26/22 08:35: Sodium 137, Potassium 3.6, BUN 3 L, Creatinine 0.57, Glucose 140 H, Total Bilirubin 0.6, AST 78 H, ALT 67, Alkaline Phosphatase 105, Lipase 179 04/26/22 08:35: WBC 9.4, Hgb 14.3, Hct 41.4, Plt Count 147 L Assessment & Plan - Problems (Diagnosis) (1) Alcohol abuse Onset Date: 02/11/18 Current Visit: No Status: Acute (2) Alcohol intoxication Current Visit: No Status: Acute (3) COPD (chronic obstructive pulmonary disease) Onset Date: 02/11/18 Current Visit: No Status: Chronic Qualifiers: (4) HTN (hypertension) Onset Date: 02/11/18 Current Visit: No Status: Chronic (5) Tobacco abuse Onset Date: 02/11/18 Current Visit: No Status: Chronic - Plan Plan: 1. IV fluids 2. Librium t.i.d. 3. Valium as needed 4. banana bag therapy 5. monitor liver function testing 6. monitor hemodynamics and his labs closely 7. May use Precedex if his symptoms worsen 8. GI and DVT prophylaxis Discharge Plan: Home Plan to discharge in: Greater than 2 days - Advance Directives Does patient have a Living Will: No Does patient have a Durable POA for Healthcare: No - Code Status/Comfort Care Code Status Assessed: Yes Code Status: Full Code Critical Care: No Time Spent Managing PTS Care (In Minutes): 45
[2022-04-26] MEDS: chlordiazePOXIDE HCl 25 MG CAP PO SCH (18:00)
[2022-04-26] MEDS ORDERED: chlordiazePOXIDE HCl 25 MG CAP ONE (18:15)
[2022-04-26] MEDS ORDERED: HYDROMORPHONE HCL 0.5 MG/0.5 ML INJ ONE (18:15)
[2022-04-26 18:33] LABS: Urine Blood Negative (Negative); Urine Glucose Negative (Negative); Urine Protein Negative (Negative); Urine Specific Gravity 1.025 (1.005-1.030); Urine pH 6.5 (5.0-7.0)
[2022-04-26] MEDS: HYDROMORPHONE HCL 0.5 MG/0.5 ML INJ IV PRN (18:38)
[2022-04-26 18:51] VITALS: BMI 32.6
[2022-04-26 18:51] LABS: Urine Bacteria <20 /HPF (NONE SEEN); Urine RBC <5 /HPF (NONE SEEN)
[2022-04-26] MEDS: DIAZEPAM 10 MG/2 ML INJ SYRINGE IV PRN (19:47)
[2022-04-26] MEDS: NICOTINE 21 MG/PAT TD SCH (20:42)
[2022-04-27] MEDS: chlordiazePOXIDE HCl 25 MG CAP PO SCH ×4 (00:10→17:04)
[2022-04-27] MEDS: HYDROMORPHONE HCL 0.5 MG/0.5 ML INJ IV PRN ×5 (02:07→19:59)
[2022-04-27 04:55] LABS: Absolute Lymphocytes (CBC) 1.3 K/uL (0.7-4.9); Hematocrit 43.3 % (39.6-49.0); Lymphocytes % 21.9 % (15.3-44.8); MCV 101.1 fL (80-100); MPV 7.5 fL (7.6-11.3); RBC Red Blood Cell Count 4.28 M/uL (4.33-5.43)
[2022-04-27 05:02] LABS: Protime INR 0.9
[2022-04-27 05:13] LABS: Albumin 3.2 g/dL (3.4-5.0); Bilirubin Total 0.8 mg/dL (0.2-1.0); Magnesium 1.7 mg/dL (1.8-2.4); Phosphorus 2.6 mg/dL (2.5-4.9); Potassium 3.3 mmol/L (3.5-5.1); Protein, Total 6.9 g/dL (6.4-8.2)
[2022-04-27] MEDS ORDERED: MAGNESIUM SULFATE 1 gm IVPB 1 GM/100 ML BAG IV ONE (05:30)
[2022-04-27] MEDS ORDERED: POTASSIUM 25 MEQ EFFERV TAB PO ONE (05:32)
[2022-04-27] MEDS: NICOTINE 21 MG/PAT TD SCH (07:24)
[2022-04-27] MEDS: DIAZEPAM 10 MG/2 ML INJ SYRINGE IV PRN ×2 (07:55→19:37)
[2022-04-27] MEDS ORDERED: ENOXAPARIN 40 MG/0.4 ML SQ SCH (09:00)
[2022-04-27] MEDS: FOLIC ACID 1 MG, MULTIVITAMINS INJ 10 ML, THIAMINE HCL 100 MG in NA CHLORIDE 0.9% 1,000 ML IV SCH (09:56)
--- NOTE | 2022-04-27 11:54 | P.PN ---
Subjective Date of Service: 04/27/22 Subjective: No new changes, No C/O voiced, Improving, Doing well Review of Systems 10-point ROS is otherwise unremarkable Physical Examination - Vital Signs Temperature: 97.5 F Blood Pressure: 144/93 Pulse: 89 Respirations: 18 Pulse Ox (%): 98 - Physical Exam General: Alert, In no apparent distress, Oriented x3 Respiratory: Clear to auscultation bilaterally, Normal air movement Cardiovascular: Regular rate/rhythm, Normal S1 S2, No murmurs Gastrointestinal: Normal bowel sounds, Soft and benign, No tenderness, No rebound, No guarding, Distended Musculoskeletal: No clubbing, No swelling, No tenderness Neurological: Sensation intact, Cranial nerves 3-12 intact - Studies Medications List Reviewed: Yes Assessment & Plan - Problems (Diagnosis) (1) Alcohol abuse Onset Date: 02/11/18 Current Visit: No Status: Acute (2) Alcohol intoxication Current Visit: No Status: Acute (3) COPD (chronic obstructive pulmonary disease) Onset Date: 02/11/18 Current Visit: No Status: Chronic Qualifiers: (4) HTN (hypertension) Onset Date: 02/11/18 Current Visit: No Status: Chronic (5) Tobacco abuse Onset Date: 02/11/18 Current Visit: No Status: Chronic - Plan Plan: 1. IV fluids 2. Librium 25mg po q.i.d. 3. Valium as needed 4. Banana bag therapy 5. Monitor liver function testing 6. Monitor hemodynamics and his labs closely 7. GI and DVT prophylaxis Discharge Plan: Home Plan to discharge in: Greater than 2 days - Advance Directives Does patient have a Living Will: No Does patient have a Durable POA for Healthcare: No - Code Status/Comfort Care Code Status: Full Code Critical Care: No Time Spent Managing PTS Care (In Minutes): 35
[2022-04-27 13:40] VITALS: O2SAT 96
[2022-04-27] MEDS ORDERED: POTASSIUM CL SA 10 MEQ TAB PO ONE ×2 (15:00→22:00)
[2022-04-27] MEDS ORDERED: METOPROLOL TAR 25 MG TAB PO SCH (18:00)
[2022-04-27 21:38] VITALS: BP 148/83; TEMP 96.5
[2022-04-28] MEDS: HYDROMORPHONE HCL 0.5 MG/0.5 ML INJ IV PRN (00:01)
[2022-04-28] MEDS: chlordiazePOXIDE HCl 25 MG CAP PO SCH (00:01)
[2022-04-28] MEDS: DIAZEPAM 10 MG/2 ML INJ SYRINGE IV PRN (00:35)
[2022-04-28] MEDS ORDERED: DIAZEPAM 10 MG/2 ML INJ SYRINGE IV ONE (01:21)
[2022-04-28] MEDS ORDERED: ZIPRASIDONE MESYLA 20 MG/VIAL IM ONE (01:55)
[2022-04-28] MEDS ORDERED: WATER FOR INJ,STERILE 10 ML IM PRN (01:55)
--- NOTE | 2022-04-28 03:11 | P.DS ---
Admission Date: 04/26/22 Discharge Date: 04/28/22 Primary Care Provider: Xenia Reason for Admission: Alcohol abuse Brief History of Present Illness: Patient is a 51-year-old gentleman who came to the hospital after a 30 day alcohol binge. He was completely intoxicated and diaphoretic and having tremors when he arrived to the emergency room. Patient has been told to refrain from alcohol as he has a history of gastrointestinal bleeding. However, he is addict ed and he is unable to refrain from his alcohol use. Patient was admitted to the hospital for further treatment. He will be given IV fluids with a banana bag as well as Librium, Ativan /Valium as needed and will monitor his electrolytes closely. Patient will be admitted to the intensive care unit. Hospital Course: Patient was treated with IV fluids/banana bag therapy, scheduled librium, valium PRN. Labs were stable throughout stay. He became very agitated this evening despite additional doses of IV valium and code gutiérrez was called. Patient elected to leave AMA. Per chart review, he has been admitted for alcohol withdrawal several times and ends up leaving AMA. Dr. Martin notified and patient left with his . <Jessica Petersen - Last Filed: 04/28/22 03:11> Admission Date: 04/26/22 Discharge Date: 04/28/22 - Problems (1) Alcohol abuse Onset Date: 02/11/18 Status: Acute (2) Alcohol intoxication Status: Acute (3) COPD (chronic obstructive pulmonary disease) Onset Date: 02/11/18 Status: Chronic Qualifiers: (4) HTN (hypertension) Onset Date: 02/11/18 Status: Chronic (5) Tobacco abuse Onset Date: 02/11/18 Status: Chronic <Satnam Martin - Last Filed: 04/28/22 08:38> Disposition: AMA-LEFT AGAINST MEDICAL ADVIC Discharge Condition: SERIOUS Vital Signs/Physical Exam: Temp Pulse Resp BP Pulse Ox 96.5 F L 66 13 148/83 H 93 04/27/22 20:00 04/27/22 21:41 04/27/22 21:41 04/27/22 21:41 04/27/22 21:41 Laboratory Data at Discharge: WBC 6.1 K/uL (4.3-10.9) D 04/27/22 04:32 Hgb 15.2 g/dL (13.6-17.9) 04/27/22 04:32 Hct 43.3 % (39.6-49.0) 04/27/22 04:32 Plt Count 142 K/uL (152-406) L 04/27/22 04:32 PT 9.9 SECONDS (9.5-12.5) 04/27/22 04:32 INR 0.90 04/27/22 04:32 APTT 31.5 SECONDS (24.3-36.9) 04/27/22 04:32 Sodium Cancelled 04/28/22 05:00 Potassium Cancelled 04/28/22 05:00 BUN Cancelled 04/28/22 05:00 Creatinine Cancelled 04/28/22 05:00 Glucose Cancelled 04/28/22 05:00 Phosphorus 2.6 mg/dL (2.5-4.9) 04/27/22 04:32 Magnesium Cancelled 04/28/22 05:00 Total Bilirubin 0.8 mg/dL (0.2-1.0) 04/27/22 04:32 AST 54 U/L (15-37) H 04/27/22 04:32 ALT 59 U/L (12-78) 04/27/22 04:32 Alkaline Phosphatase 99 U/L (45-117) 04/27/22 04:32 Lipase 179 U/L (73-393) 04/26/22 08:35 <Jessica Petersen - Last Filed: 04/28/22 03:11> Vital Signs/Physical Exam: Temp Pulse Resp BP Pulse Ox 96.5 F L 66 13 148/83 H 93 04/27/22 20:00 04/27/22 21:41 04/27/22 21:41 04/27/22 21:41 04/27/22 21:41 Laboratory Data at Discharge: WBC Cancelled 04/28/22 06:00 Hgb Cancelled 04/28/22 06:00 Hct Cancelled 04/28/22 06:00 Plt Count Cancelled 04/28/22 06:00 PT 9.9 SECONDS (9.5-12.5) 04/27/22 04:32 INR 0.90 04/27/22 04:32 APTT 31.5 SECONDS (24.3-36.9) 04/27/22 04:32 Sodium Cancelled 04/28/22 06:00 Potassium Cancelled 04/28/22 06:00 BUN Cancelled 04/28/22 06:00 Creatinine Cancelled 04/28/22 06:00 Glucose Cancelled 04/28/22 06:00 Phosphorus Cancelled 04/28/22 06:00 Magnesium Cancelled 04/28/22 06:00 Total Bilirubin Cancelled 04/28/22 06:00 AST Cancelled 04/28/22 06:00 ALT Cancelled 04/28/22 06:00 Alkaline Phosphatase Cancelled 04/28/22 06:00 Lipase 179 U/L (73-393) 04/26/22 08:35 <Satnam Martin - Last Filed: 04/28/22 08:38> <Jessica Petersen - Last Filed: 04/28/22 03:11> Time spent managing pt's care (in minutes): 35 ( chart has been reviewed) <Satnam Martin - Last Filed: 04/28/22 08:38> Home Medications: Amlodipine [Norvasc*] 10 mg PO DAILY 01/03/21 Metoprolol Tartrate [Lopressor] 50 mg PO BID #60 tab 04/28/22 chlordiazePOXIDE HCl [Chlordiazepoxide HCl] 10 mg PO TID #60 capsule 04/28/22 predniSONE [Prednisone*] 10 mg PO DAILY #30 tab 04/28/22 New Medications: chlordiazePOXIDE HCl [Chlordiazepoxide HCl] 10 mg PO TID #60 capsule Metoprolol Tartrate [Lopressor] 50 mg PO BID #60 tab predniSONE [Prednisone*] 10 mg PO DAILY #30 tab Physician Discharge Instructions: PATIENT LEFT AGAINST MEDICAL ADVICE Followup: Adrianna Michaels DO, DO [Primary Care Provider] -
[2022-04-28] MEDS ORDERED: AMLODIPINE 5 MG TAB PO SCH (09:00)
[2022-04-28] MEDS ORDERED: predniSONE 10 MG TAB PO SCH (09:00)
--- NOTE | 2022-04-28 11:55 | EKG ---
Test Date: 2022-04-26 Test Time: 08:43:05 Branch [employer] Executive: PH MEASUREMENT RESULTS: Intervals: Rate: 121 NJ: 132 QRSD: 90 QT: 344 QTc: 488 [place]: P: 58 NJ: 132 QRS: 85 T: 62 INTERPRETIVE STATEMENTS: Sinus tachycardia Nonspecific ST and T wave abnormality Abnormal ECG Compared to ECG 03/22/2022 00:50:24 Sinus rhythm no longer present Incomplete right bundle-branch block no longer present ST (T wave) deviation still present Electronically Signed On 04-28-22 11:50:33 CDT by Clovis Barrios
== END 2022-04-28 02:15 | disposition left against medical advice (07) | DRG 897 ==
LOC: ER 08:01 → ERHOLD 12:36 → 3RD-ICU 19:14
PROVIDERS: ADMIT Hospitalist; ATTEND Hospitalist
DX: F10.239 Alcohol dependence with withdrawal, unspecified (principal); F10.229 Alcohol dependence with intoxication, unspecified; I10 Essential (primary) hypertension; J44.9 Chronic obstructive pulmonary disease, unspecified; Z79.52 Long term (current) use of systemic steroids; K21.9 Gastro-esophageal reflux disease without esophagitis; Z87.891 Personal history of nicotine dependence; Z20.822 Contact with and (suspected) exposure to COVID-19
CPT/HCPCS: 36415; 70450; 74177; 80053; 81003; 81015; 82565; 83690; 83735; 84100; 84132; 85025; 85610; 85730; 93005; 96365; 96366; 96375; 99285; J1170; J2405; J2930; J3360; J3411; J3475; J7030; Q9967; U0003

== ENCOUNTER 2022-09-14 16:41 | Emergency (ER) | payer SELFPAY ==
--- OUTSIDE RECORDS SUMMARY | 2022-09-14 16:44 | XMS REPORT | Continuity of Care Document ---
:1970 Author Organization [facility] t Address [address] [place] [address] Care Team Providers Name Role Phone LOPEZGIRISHIsaiasROMEO Primary Care Physician Unavailable Christy Shaw MD Attending Clinician CHRISTY SHAW Attending Clinician Unavailable DENISE SUNG Attending Clinician Unavailable KARLEY ADAMS Attending Clinician Unavailable CHRISTY SHAW Admitting Clinician Unavailable Problems Condition Condition Condition Status Onset Resolution Last Treating Co mments Source Name Details Category Date Date Treatment Clinician Date Obesity Obesity Disease Active Univers (BMI (BMI 5-16 ity of 30-39.9) 30-39.9) 00:00: [address] Acute Acute Disease Active Univers exacerbati exacerbati 5-16 it y of on of on of 00:00: [place] chronic chronic 00 Medical obstructiv obstructiv Br anch e e pulmonary pulmonary disease disease (COPD) (COPD) Allergies, Adverse Reactions, Alerts Allergy Allergy Status Severity Reaction(s) Onset Inactive Treating Comm ents Source Name Type Date Date Clinician Lisinopr Propensi Active Anaphylaxis 2017- U nivers il ty to 5-16 ity of adverse 00:00: [place] reaction 00 [facility] LISINOPR DRUG Active Anaphylaxis Uni vers IL INGREDI 5-16 ity of 00:00: [address] Social History Social Habit Start Date Stop Date Quantity Comments Source Exposure to 2022-03-02 2022-03-12 Not sure [facility] SARS-CoV-2 00:00:00 05:08:00 [facility] (event) Branch Alcohol intake 2022-03-09 2022-03-09 4.29 /d University of 00:00:00 00:00:00 [facility] Tobacco use and 2018-03-24 2018-03-24 Current user Univers ity of exposure 00:00:00 00:00:00 [facility] Tobacco Comment 2018-03-24 2018-03-24 trying to quit Unive rsity of 00:00:00 00:00:00 [facility] Sex [birth year] At [birth year] Universit y of 00:00:00 00:00:00 [facility] Smoking Status Start Date Stop Date Source Current every day smoker 2018-03-24 00:00:00 Uni versity [facility] [place] [facility] Medications Ordered Filled Start Stop Current Ordering Indication Dosage Frequency Signature Comments Components Source Medication Medication Date Date Medication? Clinician (SIG) Name Name HYDROcodone 2021- No 1{tbl} 1 tablet, Univers -acetaminop 5-04 05-04 Oral, ity of hen (NORCO) 12:15[place] 11[place]21 [place] :00 dose, On Medica l tablet 1 Thu03/12/22 Branc h tablet at 0715, Routine HYDROcodone 2021- No 4647 1{tbl} Take 1 U nivers -acetaminop 5-04 05-12 tablet by it y of hen 10-325 [...] 40mg 40 mg, Uni vers ISolone sod 02-20 Intravenou i ty of succ 11:45: 10:43 s, ONCE, 1 [place] (SOLU-MEDRO 00 :00 dose, On Medi keo L (PF)) Kym Branch injection 02/20/22 at 40 mg 0645, STAT foLIC acid 2021- No 1mg 1 mg, Unive rs (FOLATE) 02-20 Oral, ity of tablet 1 mg 11:45: 10:41 [place] dose, On Medical [place] 02/20/22 at 0645, LAURYN thiamine 2021- No 100mg 100 mg, Univ ers (VITAMIN 02-20 Intravenou ity of B1) 11:45: 10:43 s, ONCE, 1 [place] injection 00 :00 dose, On Medica l 100 mg K[place] Branch 02/20/22 at 0645, LAURYN LORazepam 2021- No 2mg 2 mg, Slow U nivers (ATIVAN) 02-20 IV Push, ity of injection 2 11:45: 10:42 [place]CE[place] 1 [place] mg 00 :00 dose, On Medical K[place] [facility] 02/20/22 at 0645, STAT ipratropium 2021- No 3mL 3 mL, Univ ers -albuteroL 02-20 Inhalation it y of (DUONEB) 10:30: 09:34 , ONCE, 1 [place] 0.5 mg-3 00 :00 dose, On Medical mg(2.5 mg [facility] Branch base)/3 mL 02/20/22 at nebulizer 0530, solution 3 Routine mL albuterol Yes [id number] 2{puff} Inhale 2 Univers 90 4-14 Puffs ity of mcg/actuati 00:00: every 4 [place] on inhaler 00 (four) Medical hours as Branch needed for Wheezing or Shortness of Breath. albuterol Yes [id number] 2.5mg Inhale 3 Univers 2.5 mg /3 4-14 mL every 4 ity of mL (0.083 00:00: (four) [place] %) 00 hours. May Medical nebulizer also Branch solution nebulize one extra every 6 hours. budesonide- Yes [id number] 2{puff} Inhale 2 Univers formoteroL 4-14 Puffs 2 ity of 160-4.5 00:00: (two) [place] mcg/actuati 00 times Medical on inhaler daily. Branch triamterene Yes [id number] 1{tbl} Take 1 Univers -hydrochlor 4-14 tablet by ity of othiazid 00:00: mouth [place] 37.5-25 mg 00 daily. Medical tablet Branch chlordiazeP Yes [id number] 25mg Take 1 Univers OXIDE 25 mg 4-14 capsule by it y of capsule 00:00: mouth [place] 00 every 6 Medical (six) Branch hours as needed for Anxiety, Agitation, Heart Rate => 100 or Detox. predniSONE Yes [id number] TAKE ONE Univers 10 mg 4-14 TABLET BY ity of tablet 00:00: MOUTH [place] 00 DAILY Medical Branch albuterol Yes [id number] 2{puff} Inhale 2 Univers 90 4-14 Puffs ity of mcg/actuati 00:00: every 4 [place] on inhaler 00 (four) Medical hours as Branch needed for Wheezing or Shortness of Breath. albuterol Yes [id number] 2.5mg Inhale 3 Univers 2.5 mg /3 4-14 mL every 4 ity of mL (0.083 00:00: (four) [place] %) 00 hours. May Medical nebulizer also Branch solution nebulize one extra every 6 hours. budesonide- Yes [id number] 2{puff} Inhale 2 Univers formoteroL 4-14 Puffs 2 ity of 160-4.5 00:00: (two) [place] mcg/actuati 00 times Medical on inhaler daily. Branch triamterene Yes [id number] 1{tbl} Take 1 Univers -hydrochlor 4-14 tablet by ity of othiazid 00:00: mouth [place] 37.5-25 mg 00 daily. Medical tablet Branch chlordiazeP Yes [id number] 25mg Take 1 Univers OXIDE 25 mg 4-14 capsule by it y of capsule 00:00: mouth [place] 00 every 6 Medical (six) Branch hours as needed for Anxiety, Agitation, Heart Rate => 100 or Detox. predniSONE Yes [id number] TAKE ONE Univers 10 mg 4-14 TABLET BY ity of tablet 00:00: MOUTH [place] 00 DAILY Medical Branch albuterol 5 Yes 2.5mg Inhale 2.5 Univers mg/mL 9-07 mg every 6 ity of nebulizer 14:02: (six) [place] solution 20 hours as Medical needed for Branch Wheezing or Shortness of Breath. albuterol 5 Yes 2.5mg Inhale 2.5 Univers mg/mL 9-07 mg every 6 ity of nebulizer 14:02: (six) [place] solution 20 hours as Medical needed for Branch Wheezing or Shortness of Breath. budesonide- Yes 2{puff} Inhale 2 Univers formoterol 9-07 Puffs 2 ity of 160-4.5 00:00: (two) [place] mcg/actuati 00 times Medical on inhaler daily. Branch albuterol Yes 2.5mg Inhale 3 Uni vers 2.5 mg /3 9-07 mL every 4 ity of mL (0.083 00:00: (four) [place] %) 00 hours as Medical nebulizer needed for Bran ch solution Wheezing or Shortness of Breath. budesonide- Yes 2{puff} Inhale 2 Univers formoterol 9-07 Puffs 2 ity of 160-4.5 00:00: (two) [place] mcg/actuati 00 times Medical on inhaler daily. Branch albuterol Yes 2.5mg Inhale 3 Uni vers 2.5 mg /3 9-07 mL every 4 ity of mL (0.083 00:00: (four) [place] %) 00 hours as Medical nebulizer needed for Bran ch solution Wheezing or Shortness of Breath. triamterene Yes 1{capsu Take 1 U nivers -hydrochlor 5-18 le} capsule by it y of othiazide 16:32: mouth [place] 37.5-25 mg 14 every Medical per capsule morning. Bran ch amLODIPine Yes 10mg Take 10 mg U nivers 10 mg 5-18 by mouth ity of tablet 16:32: at [place] 14 bedtime. Medical Branch gabapentin Yes 100mg Take 100 Un odalys 100 mg 5-18 mg by ity of capsule 16:32: mouth 2 [place] [address] (two) Medical times [place] daily as needed (MSK pain). foLIC acid Yes 1mg Take 1 mg Un odalys 1 mg tablet 5-18 by mouth ity of 16:32: daily. [address] triamterene 2018-0 Yes 1{capsu Take 1 U nivers -hydrochlor 5-18 le} capsule by it y of othiazide 16:32: mouth [place] 37.5-25 mg 14 every Medical per capsule morning. Bran amLODIPine 2017- Yes 10mg Take 10 mg U nivers 10 mg 5-18 by mouth ity of tablet 16:32: at [place] [address] bedtime. Medical Branch gabapentin 201[address] Yes 100mg Take 100 Un odalys 100 mg 5-18 mg by ity of capsule 16:32: mouth 2 [place] 14 (two) Medical times [place] daily as needed (MSK pain). foLIC acid 2017- Yes 1mg Take 1 mg Un odalys 1 mg tablet 5-18 by mouth ity of 16:32: daily. [address] budesonide- Yes 2{puff} Inhale 2 Univers formoterol 5-18 Puffs 2 ity of 160-4.5 00:00: (two) [place] mcg/actuati 00 times Medical on inhaler daily. [place] budesonide- 0 Yes 2{puff} Inhale 2 Univers formoterol 5-18 Puffs 2 ity of 160-4.5 00:00: (two) [place] mcg/actuati 00 times Medical on inhaler daily. [place] Immunizations Ordered Filled Immunization Date Status Comments [facility] e Immunization Name Name SARS-COV-2 COVID-19 2021-02-03 Completed Unive rsity of PFIZER VACCINE 00:00:00 [facility] [place] [facility] SARS-COV-2 COVID-19 2021-02-03 Completed Unive rsity of PFIZER VACCINE 00:00:00 [facility] [place] [facility] SARS-COV-2 COVID-19 2021-01-13 Completed Unive rsity of PFIZER VACCINE 00:00:00 [facility] [place] [facility] SARS-COV-2 COVID-19 2021-01-13 Completed Unive rsity of PFIZER VACCINE 00:00:00 [facility] [place] [facility] Pneumococcal 2018-03-26 Completed University o f Polysaccharide, 00:00:00 [place] Med ical PPSV23 (PNEUMOVAX) Branch Influenza Virus 2018-03-26 Completed Universit y of Vaccine Quad IM 3+ 00:00:00 [facility] Branch Pneumococcal 2018-03-26 Completed University o f Polysaccharide, 00:00:00 [place] Med ical PPSV23 (PNEUMOVAX) Branch Influenza Virus 2018-03-26 Completed Universit y of Vaccine Quad IM 3+ 00:00:00 [facility] Vital Signs Vital Name Observation Time Observation Value Comments Source Systolic blood 2022-03-12 10:13:00 119 mm[Hg] Univer sity of pressure [facility] Diastolic blood 2022-03-12 10:13:00 75 mm[Hg] Unive rsity of [facility] Heart rate 2022-03-12 10:13:00 105 /min Universi ty [facility] [place] [facility] Body temperature 2022-03-12 10:13:[address] [facility] ersity [facility] [place] [facility] Respiratory rate 2022-03-12 10:13:00 19 /min Univ ersity [facility] [place] [facility] Body height 2022-03-12 10:13:00 162.6 cm Universi ty [facility] [place] [facility] Body weight 2022-03-12 10:13:00 99.791 kg Universi ty [facility] [place] [facility] BMI 2022-03-12 10:13:00 37.76 kg/m2 Universi ty [facility] [place] [facility] Oxygen saturation in 2022-03-12 10:13:00 96 /min University of Arterial blood by [facility] Pulse oximetry Branch Systolic blood 2022-02-20 11:57:00 155 mm[Hg] Univer sity of [facility] Diastolic blood 2022-02-20 11:57:00 88 mm[Hg] Unive rsity of [facility] Heart rate 2022-02-20 11:57:00 105 /min Universi ty [facility] [place] [facility] Respiratory rate 2022-02-20 11:57:00 18 [facility] in 2022-02-20 11:57:00 100 /min University of Arterial blood by [facility] Pulse oximetry Branch Body temperature 2022-02-20 09:25:[address] [facility] ersity [facility] Body height 2022-02-20 09:25:00 162.6 cm [facility] Body weight 2022-02-20 09:25:00 96.163 kg [facility] BMI 2022-02-20 09:25:00 36.39 kg/m2 [facility] Procedures Procedure Date / Time Performed Performing Clinician [facility] e CONSENT/REFUSAL FOR 2022-03-12 10:03:12 [facility], [facility] Name Medical [place] TREATMENT XR CHEST 1 VW 2022-02-20 09:59:00 Christy Shaw [facility] LIPASE 2022-02-20 09:30:00 Christy Shaw [facility] TROPONIN I 2022-02-20 09:30:00 Christy Shaw [facility] COMP. METABOLIC PANEL 2022-02-20 09:30:00 Christy Shaw [facility] ([id number]) [facility] CBC WITH DIFF 2022-02-20 09:30:00 Christy Shaw [facility] N-TERMINAL PRO-BNP 2022-02-20 09:30:00 Christy Shaw [facility] NOTICE OF PRIVACY 2022-02-20 09:15:02 Doctor Unassigned, No Univ [facility] PRACTICES Name [facility] CONSENT/REFUSAL FOR 2022-02-20 09:14:47 [facility] TREATMENT Encounters Start End Encounter Admission Attending Care Care Encounter Source Date/Time Date/Time Type Type Clinicians Facility Department ID 2022-03-12 2022-03-12 Emergency Count includes the [facility] [id number] Univers 05:15:00 06:41:00 [id number] [facility] [id number] [facility] [id number] [facility] 084 Branch 2022-03-12 2022-03-12 Emergency X [facility] ERT [id number] Univers 05:15:00 06:41:00 CHRISTY garcia [facility] 2022-02-20 2022-02-20 Emergency X [facility] ERT [id number] Univers 04:17:00 [facility]16[facility] 2022-[facility]-20 2022-02-20 Emergency Count includes the [facility] [id number] Univers 04:17:00 07:16:00 Christy SMITH [id number] [facility] [id number] [facility] [id number] [facility] 084 Branch 2021-02-03 2021-02-03 [facility] [id number] Univers 11:10:00 11:10:00 DENISE [facility] 2021-01-13 2021-01-13 Outpatient [facility] [id number] Univers 11:20:00 11:20:00 [facility] 2020-11-10 2020-11-10 [facility] [id number] Univers 08:20:00 08:20:00 KARLEY [facility] Results Test Description Test Time Test Comments Results Result Comments Source TROPONIN I 2022-02-20 10:16:22 Test Item Value Reference Range Interpretation Comme nts TROPONIN I (test code = 0.007 ng/mL See_Comment [Au tomated message] The [id number]) system which ge nerated this result tra [...] biotin. Lab Interpretation Normal (test code = 09451-2) [id number] 10:13:01 Test Item Value Reference Range Interpretation Comments NT-proBNP (test code 52 pg/mL See_Comment [Autom ated = 1625423521) message] The system which generated this result transmitted reference range : <=125. The reference range was not used to interpret this result as normal/abnormal . LOUISE (test code = LOUISE) Biotin has been reported to cause a negative bias, interpret results relative to patient's use of biotin. Lab Interpretation Normal (test code = 88614-2) [facility]. METABOLIC PANEL (27111)2022-02-20 10:04:02 Test Item Value Reference Range Interpretation Comments NA (test code = 137 mmol/L 135-145 7705216044) K (test code = 3.6 mmol/L 3.5-5.0 3957139868) CL (test code = 99 mmol/L 98-108 5372666370) CO2 TOTAL (test code = 25 mmol/L 23-31 1365996362) AGAP (test code = 2-16 7064366732) BUN (test code = 6 mg/dL 7-23 L 0594831418) GLUCOSE (test code = 88 mg/dL 70-110 6798100273) CREATININE (test code = 0.55 mg/dL 0.60-1.25 L 3310155267) TOTAL BILI (test code = 0.8 mg/dL 0.1-1.1 7765805528) CALCIUM (test code = 8.9 mg/dL 8.6-10.6 2479066637) T PROTEIN (test code = 7.5 g/dL 6.3-8.2 1890633434) ALBUMIN (test code = 4.8 g/dL 3.5-5.0 4188949075) ALK PHOS (test code = 113 U/L 34-122 5965272119) ALTv (test code = 84 U/L 5-50 H 1742-6) AST(SGOT) (test code = 107 U/L 13-40 H 2929620552) eGFR (test code = mL/min/1.73m2 4728270057) LOUISE (test code = LOUISE) Association of [...] tests). Lab Interpretation Abnormal (test code = 99367-2) [facility] [id number] 10:03:21 Test Item Value Reference Range Interpretation Comments LIPASE (test code = 5727584773) 193 U/L 0-220 Lab Interpretation (test code = Normal 66428-9) [facility] [id number] 09:39:17 Test Item Value Reference Range Interpretation Comments WBC (test code = See_Comment [Automated 2788-2) message] The sy stem which generated this result transmitted reference range : 4.20 - 10.70 10*3/?L. The reference range was not used to interpret this result as normal/abnormal . RBC (test code = See_Comment [Automated 771-0) message] The sy stem which generated this [...] RDW-SD (test code = 44.4 fL 38.5-51.6 18208-1) RDW-CV (test code = 11.9 % 12.1-15.4 L 788-0) PLT (test code = See_Comment [Automated 777-3) message] The sy stem which generated this result transmitted reference range : 150 - 328 10*3/ ?L. The reference r ernie was not used to interpret this result as normal/abnormal . MPV (test code = 9.2 fL 9.8-13.0 L 94774-3) NRBC/100 WBC (test See_Comment [Automat ed code = 0329468733) message] The system which generated this result transmitted reference range : 0.0 - 10.0 /100 WBCs. The refer ence range was not u sed to interpret th is result as normal/abnormal . NRBC x10^3 (test code <0.01 See_Comment [Auto mated = 0442164601) message] The s ystem which generated this result transmitted reference range : 10*3/?L. The reference range was not used to interpret this result as normal/abnormal . GRAN MAT (NEUT) % 69.9 % (test code = 770-8) IMM GRAN % (test code 1.50 % = 6356493707) LYMPH % (test code = 18.9 % 736-9) MONO % (test code = 7.0 % 5905-5) EOS % (test code = 1.9 % 713-8) BASO % (test code = 0.8 % 706-2) GRAN MAT x10^3(ANC) 7.15 10*3/uL 1.99-6.95 H (test code = 8459456451) IMM GRAN x10^3 (test 0.15 10*3/uL 0.00-0.06 H code = 9999408114) LYMPH x10^3 (test code 1.93 10*3/uL 1.09-3.23 = 731-0) MONO x10^3 (test code 0.72 10*3/uL 0.36-1.02 = 742-7) EOS x10^3 (test code = 0.19 10*3/uL 0.06-0.53 711-2) BASO x10^3 (test code 0.08 10*3/uL 0.01-0.09 = 704-7) Lab Interpretation Abnormal (test code = 39591-7) [facility]"
[2022-09-14] MEDS ORDERED: DIAZEPAM 10 MG/2 ML INJ SYRINGE ONE ×2 (17:34→17:39)
[2022-09-14 17:41] LABS: Absolute Lymphocytes (CBC) 1.6 K/uL (0.7-4.9); Hematocrit 47.5 % (39.6-49.0); Lymphocytes % 14.6 % (15.3-44.8); MCV 98.3 fL (80-100); MPV 6.6 fL (7.6-11.3); RBC Red Blood Cell Count 4.84 M/uL (4.33-5.43)
--- NOTE | 2022-09-14 17:45 | RAD REPORT ---
EXAM DESCRIPTION: RAD - Chest Single View - 09/14/2022 5:35 pm CLINICAL HISTORY: Congestion Chest pain. COMPARISON: Chest Single View dated 03/22/2022; Chest Single View dated 02/16/2022; Chest Single View dated 12/17/2021; Chest Single View dated 10/07/2021 FINDINGS: Portable technique limits examination quality. The lungs are grossly clear. The heart is mildly enlarged in size. No displaced fractures.
[2022-09-14 17:49] LABS: Protime INR 0.95
[2022-09-14 17:57] LABS: SARS-CoV-2 Antigen Rapid Res Negative (Negative)
[2022-09-14 18:07] LABS: Albumin 4.4 g/dL (3.4-5.0); Bilirubin Direct 0.2 mg/dL (0-0.2); Bilirubin Total 0.8 mg/dL (0.2-1.0); Magnesium 1.7 mg/dL (1.8-2.4); Potassium 3.4 mmol/L (3.5-5.1); Troponin High Sensitivity 8.5 pg/mL (<58.9)
--- NOTE | 2022-09-14 18:11 | ER ---
Nurse's Notes [facility] Name: Randy Briones Age: 52 yrs Sex: Male : 1970 Arrival Date: 09/14/2022 Time: 16:43 Bed 8 Private MD: Adrianna Michaels H Diagnosis: Alcohol abuse Presentation: 09/14 16:52 Chief complaint: SOB upon waking today, diarrhea and RUQ pain this afternoon. Also hb reports being "on a 2 week alcohol binge." Last drink was yesterday. Coronavirus screen: At this time, the client does not indicate any symptoms associated with coronavirus-19. Ebola Screen: No symptoms or risks identified at this time. Onset of symptoms was September 14, 2022. 16:52 Method Of Arrival: Ambulatory hb 16:52 Acuity: CANDACE 2 hb 16:52 Risk Assessment: Do you want to hurt yourself or someone else?. hb 17:44 Initial Sepsis Screen: Does the patient meet any 2 criteria? No. Patient's initial ph sepsis screen is negative. Does the patient have a suspected source of infection? No. Patient's initial sepsis screen is negative. Historical: - Allergies: 16:53 Lisinopril; hb - PMHx: 16:53 Alcoholism; COPD; Hypertension; hb Screenin:59 Abuse screen: Denies threats or abuse. Denies injuries from another. Nutritional mb8 screening: No deficits noted. Tuberculosis screening: No symptoms or risk factors identified. Fall Risk No fall in past 12 months (0 pts). Secondary diagnosis (15 points) IV access (20 points). Ambulatory Aid- None/Bed Rest/Nurse Assist (0 pts). Gait- Normal/Bed Rest/Wheelchair (0 pts) Mental Status- Oriented to own ability (0 pts). Total Art Fall Scale indicates Low Risk Score (25-44 pts). Fall prevention measures have been instituted. Side Rails Up X 2 Family Present and informed to notify staff if they need to leave bedside As available Patient and Family Educated on Fall Prevention Program and strategies. Assessment: 17:40 Pain: Complains of pain in abdomen Pain currently is 4 out of 10 on a pain scale. mb8 Respiratory: Breath sounds are diminished. 17:40 General: Appears uncomfortable, ill, Behavior is calm, cooperative, appropriate for age.mb8 Vital Signs: 16:52 BP 166 / 126; Pulse 106; Resp 24; Temp 98.; Pulse Ox 98% on R/A; Weight 96.16 kg; hb Height 5 ft. 4 in. (162.56 cm); Pain 10/10; 17:44 BP 152 / 97; Pulse 96; Resp 24; Pulse Ox 96% on 2 lpm NC; ph 18:40 BP 146 / 83; Pulse 89; Resp 20; Pulse Ox 97% on R/A; mb8 16:52 Body Mass Index 36.39 (96.16 kg, 162.56 cm) hb ED Course: 16:43 Patient arrived in ED. mr 16:43 Adrianna Michaels DO is Private Physician. mr 16:53 Triage completed. hb 16:53 Arm band placed on. hb 17:01 Leslie Vasquez FNP-C [facility]. snw 17:01 Aren Benson DO is Attending Physician. snw 17:25 Initial lab(s) drawn, by me, sent to lab. Inserted saline lock: 18 gauge in right ph antecubital area, using aseptic technique. Blood collected. Oxygen administration via nasal cannula \\T\\ 2L/min. 17:37 Sunil Ritter, BRIGETTE is Primary Nurse. mb8 17:37 XRAY Chest (1 view) In Process Unspecified. EDMS 17:40 Patient has correct armband on for positive identification. Placed in gown. Bed in low mb8 position. Call light in reach. Side rails up X2. Client placed on continuous cardiac and pulse oximetry monitoring. NIBP monitoring applied. dental insurance biller on. 17:59 No provider procedures requiring assistance completed. mb8 18:10 Adrianna Michaels DO is Referral Physician. snw 18:51 IV discontinued, intact, bleeding controlled, No redness/swelling at site. Pressure mb8 dressing applied. Administered Medications: 17:35 Drug: Valium (diazepam) 10 mg Route: IVP; Site: right antecubital; ph 18:34 Follow up: Response: No adverse reaction mb8 18:45 Drug: ProTONIX (pantoprazole) 40 mg Route: IVP; Site: right antecubital; mb8 18:51 Follow up: Response: Medication administered at discharge. mb8 18:45 Drug: Valium (diazepam) 10 mg Route: PO; mb8 18:50 Follow up: Response: Medication administered at discharge. mb8 Medication: 17:59 VIS not applicable for this client. mb8 Outcome: 18:10 Discharge ordered by . xavi 18:52 Discharged to home ambulatory, with family. mb8 18:52 Condition: stable 18:52 Discharge instructions given to patient, family, Instructed on discharge instructions, follow up and referral plans. no drinking with medication, medication usage, Demonstrated understanding of instructions, follow-up care, medications, Prescriptions given X 1. 18:53 Patient left the ED. mb8 Signatures: Dispatcher [employer] EDMS Leslie Vasquez, DICE DEALER-C DICE DEALER-Csnw Bianca Canela Angle Hoover RN RN Myra Sandoval RN RN Sunil Ritter RN RN mb8 Corrections: (The following items were deleted from the chart) 16:53 16:52 BP 166 / 106; Pulse 106bpm; Resp 20bpm; Pulse Ox 98% RA; Temp 98.F; 96.16 kg; hb Height 5 ft. 4 in.; BMI: 36.3; Pain 10/10; hb 16:53 16:52 Acuity: CANDACE 3 hb hb
--- NOTE | 2022-09-14 18:11 | EDPHYS ---
Physician Documentation [facility] Name: Randy Briones Age: 52 yrs Sex: Male : 1970 Arrival Date: 09/14/2022 Time: 16:43 Bed 8 Private MD: Adrianna Michaels H ED Physician Aren Benson HPI: 09/14 17:38 This 52 yrs old Male presents to ER via Ambulatory with complaints of COPD Exacerbation.snw 17:38 Onset: The symptoms/episode began/occurred 1 week(s) ago, and became worse today. snw Associated signs and symptoms: Pertinent positives: abdominal pain, shortness of breath. Modifying factors: The patient symptoms are alleviated by nothing, the patient symptoms are aggravated by activity, drinking, ETOH. The patient has experienced similar episodes in the past, chronically. The patient has not recently seen a physician. Historical: - Allergies: 16:53 Lisinopril; hb - PMHx: 16:53 Alcoholism; COPD; Hypertension; hb ROS: 17:36 Eyes: Negative for injury, pain, redness, and discharge, ENT: Negative for injury, snw pain, and discharge, Neck: Negative for injury, pain, and swelling. 17:36 Back: Negative for injury and pain, MS/Extremity: Negative for injury and deformity, Skin: Negative for injury, rash, and discoloration, Neuro: Negative for headache, weakness, numbness, tingling, and seizure. 17:36 Constitutional: Positive for body aches, fever, malaise, poor PO intake. 17:36 Cardiovascular: Positive for orthopnea. 17:36 Respiratory: Positive for cough, shortness of breath. 17:36 Abdomen/GI: Positive for abdominal pain, abdominal distension, of the right upper quadrant. Exam: 17:33 Head/Face: Normocephalic, atraumatic. Eyes: Pupils equal round and reactive to light, snw extra-ocular motions intact. Lids and lashes normal. Conjunctiva and sclera are non-icteric and not injected. Cornea within normal limits. Periorbital areas with no swelling, redness, or edema. ENT: Nares patent. No nasal discharge, no septal abnormalities noted. Tympanic membranes are normal and external auditory canals are clear. Oropharynx with no redness, swelling, or masses, exudates, or evidence of obstruction, uvula midline. Mucous membranes moist. Neck: Trachea midline, no thyromegaly or masses palpated, and no cervical lymphadenopathy. Supple, full range of motion without nuchal rigidity, or vertebral point tenderness. No Meningismus. Chest/axilla: Normal chest wall appearance and motion. Nontender with no deformity. No lesions are appreciated. 17:33 Back: No spinal tenderness. No costovertebral tenderness. Full range of motion. MS/ Extremity: Pulses equal, no cyanosis. Neurovascular intact. Full, normal range of motion. 17:33 Constitutional: The patient appears alert, awake, anxious. 17:33 Cardiovascular: Rate: tachycardic, Rhythm: regular, Heart sounds: normal, Edema: is not appreciated. 17:33 Respiratory: the patient does not display signs of respiratory distress, Respirations: shallow respirations, tachypnea. 17:33 Abdomen/GI: Inspection: distension, that is moderate, Bowel sounds: normal. 17:33 Skin: Appearance: diaphoresis is noted, hyperemic. Vital Signs: 16:52 BP 166 / 126; Pulse 106; Resp 24; Temp 98.; Pulse Ox 98% on R/A; Weight 96.16 kg; hb Height 5 ft. 4 in. (162.56 cm); Pain 10/10; 17:44 BP 152 / 97; Pulse 96; Resp 24; Pulse Ox 96% on 2 lpm NC; ph 18:40 BP 146 / 83; Pulse 89; Resp 20; Pulse Ox 97% on R/A; mb8 16:52 Body Mass Index 36.39 (96.16 kg, 162.56 cm) hb MDM: 17:05 Patient medically screened. snw 18:11 Data reviewed: vital signs, nurses notes. Data interpreted: Pulse oximetry: on room air snw is 96 %. Interpretation: acceptable. Counseling: I had a detailed discussion with the patient and/or guardian regarding: the historical points, exam findings, and any diagnostic results supporting the discharge/admit diagnosis, lab results, radiology results, the need for outpatient follow up, to return to the emergency department if symptoms worsen or persist or if there are any questions or concerns that arise at home. Special discussion: I have referred the patient to see his PCP for further evaluation of high blood pressure. Based on the history and exam findings, there is no indication for further emergent testing or inpatient evaluation. I discussed with the patient/guardian the need to see the primary care provider for further evaluation of the symptoms. 09/14 17:02 Order name: Basic Metabolic Panel; Complete Time: 18:09 snw 09/14 17:02 Order name: CBC with Diff; Complete Time: 17:55 snw 09/14 17:02 Order name: LFT's; Complete Time: 18:09 snw 09/14 17:02 Order name: Magnesium; Complete Time: 18:09 snw 09/14 17:02 Order name: NT PRO-BNP; Complete Time: 18:09 snw 09/14 17:02 Order name: PT-INR; Complete Time: 17:55 snw 09/14 17:02 Order name: Troponin HS; Complete Time: 18:09 snw 09/14 17:02 Order name: XRAY Chest (1 view); Complete Time: 17:55 snw 09/14 17:02 Order name: Flu; Complete Time: 18:02 snw 09/14 17:02 Order name: SARS RAPID; Complete Time: 18:02 snw 09/14 17:03 Order name: ETOH Level; Complete Time: 18:09 snw 09/14 17:04 Order name: Lactate; Complete Time: 18:09 snw 09/14 17:04 Order name: Blood Culture Adult (2) snw 09/14 17:02 Order name: EKG; Complete Time: 17:03 snw 09/14 17:02 Order name: Cardiac monitoring; Complete Time: 17:44 snw 09/14 17:02 Order name: EKG - Nurse/Tech; Complete Time: 17:44 snw 09/14 17:02 Order name: IV Saline Lock; Complete Time: 17:44 snw 09/14 17:02 Order name: Labs collected and sent; Complete Time: 17:44 snw 09/14 17:02 Order name: O2 Per Protocol; Complete Time: 17:44 snw 09/14 17:02 Order name: O2 Sat Monitoring; Complete Time: 17:44 snw EC:55 Rate is 89 beats/min. Rhythm is regular. QT interval is prolonged. Clinical impression: snw NSR w/ Non-specific ST/T Changes. Administered Medications: 17:35 Drug: Valium (diazepam) 10 mg Route: IVP; Site: right antecubital; ph 18:34 Follow up: Response: No adverse reaction mb8 18:45 Drug: ProTONIX (pantoprazole) 40 mg Route: IVP; Site: right antecubital; mb8 18:51 Follow up: Response: Medication administered at discharge. mb8 18:45 Drug: Valium (diazepam) 10 mg Route: PO; mb8 18:50 Follow up: Response: Medication administered at discharge. mb8 Disposition: 18:35 Co-signature as Attending Physician, Aren Benson DO I was immediately available onsite ms3 in the emergency department for consultation in the care of the patient. Disposition Summary: 09/14/22 18:10 Discharge Ordered Location: Home snw Condition: Stable snw Diagnosis - Alcohol abuse snw Followup: snw - With: Emergency Department - When: As needed - Reason: Worsening of condition Followup: snw - With: Adrianna Michaels DO - When: Tomorrow - Reason: Recheck today's complaints, Continuance of care, Re-evaluation by your physician Discharge Instructions: - Discharge Summary Sheet snw - Alcohol Intoxication snw - Alcohol Use Disorder snw - Alcohol Abuse and Nutrition snw Forms: - Work release form bd - Medication Reconciliation Form snw - Thank You Letter snw - Antibiotic Education snw - Prescription Opioid Use snw Prescriptions: - chlordiazepoxide HCl 10 mg Oral capsule - take 1 capsule by ORAL route 3 times per day; 9 capsule; Refills: 0, Product snw Selection Permitted Signatures: Dispatcher [employer] Leslie Jordan FNP-C BIOMASS TECHNICIAN-Csnw Angle Hoover, RN RN Myra Sandoval, RN RN Aren Vásquez DO DO ms3 Sunil Ritter RN RN mb8
[2022-09-14] MEDS ORDERED: PANTOPRAZOLE 40 MG INJ ONE (18:36)
[2022-09-14] MEDS ORDERED: DIAZEPAM 5 MG TABLET ONE (18:36)
[2022-09-14 19:22] VITALS: TEMP 98
[2022-09-14 19:38] VITALS: BP 146/83; O2SAT 97
--- NOTE | 2022-09-15 12:12 | EKG ---
Test Date: 2022-09-14 Test Time: 17:51:08 Director [place]: MEASUREMENT RESULTS: Intervals: Rate: 89 AK: 144 QRSD: 100 QT: 398 QTc: 484 [place]: P: 58 AK: 144 QRS: 90 T: 80 INTERPRETIVE STATEMENTS: Normal sinus rhythm Rightward axis Incomplete right bundle branch block Prolonged QT Abnormal ECG Compared to ECG 04/26/2022 08:43:05 Right-axis deviation now present Incomplete right bundle-branch block now present Prolonged QT interval now present Sinus tachycardia no longer present ST (T wave) deviation no longer present Electronically Signed On 09-15-22 12:10:55 APPIAN BPM DEVELOPER by Rosalino Albert
== END 2022-09-14 18:53 | disposition home or self-care (01) ==
LOC: ER 16:41
DX: F10.20 Alcohol dependence, uncomplicated (principal); Z88.8 Allergy status to other drugs, medicaments and biological substances
CPT/HCPCS: 36415; 71045; 80048; 80076; 80320; 83605; 83735; 83880; 84484; 85025; 85610; 87040; 87804; 87811; 93005; 96374; 96375; 99285; C9113; J3360

== ENCOUNTER 2022-11-24 04:11 | Inpatient (IN) | payer SELFPAY ==
--- OUTSIDE RECORDS SUMMARY | 2022-11-24 04:15 | XMS REPORT | Continuity of Care Document ---
:1970 Author Organization [facility] t Address [address] [place] [address] Care Team Providers Name Role Phone LOPEZGIRISH FelizDELPHINEROMEO Primary Care Physician Unavailable Melinda Maciel DO Attending Clinician MELINDA MACIEL Attending Clinician Unavailable CHRISTY SHAW Attending Clinician Unavailable Christy Shaw MD Attending Clinician DENISE SUNG Attending Clinician Unavailable KARLEY ADAMS Attending Clinician Unavailable MELINDA MACIEL Admitting Clinician Unavailable CHRISTY SHAW Admitting Clinician Unavailable Problems Condition Condition Condition Status Onset Resolution Last Treating Co mments Source Name Details Category Date Date Treatment Clinician Date Acute Acute Disease Active Univers exacerbati exacerbati 5-16 it y of on of on of 00:00: [place] chronic chronic 00 Medical obstructiv obstructiv Br anch e e pulmonary pulmonary disease disease (COPD) (COPD) Obesity Obesity Disease Active 2018 Univers (BMI (BMI 5-16 ity of 30-39.9) 30-39.9) 00:00: [place] [address] Medical Branch Allergies, Adverse Reactions, Alerts Allergy Allergy Status Severity Reaction(s) Onset Inactive Treating Comm ents Source Name Type Date Date Clinician Lisinopr Propensi Active Anaphylaxis 2018-0 U nivers il ty to 5-16 ity of adverse 00:00: [place] reaction 00 Medical s Branch LISINOPR DRUG Active Anaphylaxis Uni vers [place] INGREDI 5-16 ity of 00:00: [address] Social History Social Habit Start Date Stop Date Quantity Comments Source History of Smokes tobacco University of tobacco use daily [facility] Exposure to 2022-10-04 2022-10-14 Not sure [facility] SARS-CoV-2 00:00:00 10:25:00 [facility] [place] Alcohol intake 2022-03-09 2022-03-09 4.29 /d University 00:00:00 00:00:00 [facility] Tobacco use and 2018-03-24 2018-03-24 User of smokeless Un iversity of exposure 00:00:00 00:00:00 tobacco [facility] Tobacco Comment 2018-03-24 2018-03-24 trying to quit Unive rsity of 00:00:00 00:00:00 [facility] Sex [birth year] At [birth year] Universit y of 00:00:00 00:00:00 [facility] Smoking Status Start Date Stop Date Source Smokes tobacco daily 2018-03-24 00:00:00 Univers ity of [facility] Medications Ordered Filled Start Stop Current Ordering Indication Dosage Frequency Signature Comments Components Source Medication Medication Date Date Medication? Clinician (SIG) Name Name iopamidol 2021-11- No [id number] 70mL 70 mL, U nivers (ISOVUE 12-15- Intravenou ity o f 370-500 mL) 18:30: 18:30 s, ONCE, 1 [place] injection 00 :00 dose, On Medica l 70 mL [facility] 10/14/22 at 1230, Routine methylpredn 2021-11 Yes 125mg 125 mg, Un odalys isolone sod 12-15 Intravenou it y of succ 18:00: s, Q6H, [place] (SOLU-MEDRO 00 First dose Me dical L) on [facility] injection 10/14/22 at 125 mg 1200, Until Discontinu ed, Routine furosemide 2021-11- No 40mg 40 mg, IV U nivers (LASIX) 12-15 12- Push, ity of injection 17:45: 16:39 ONCE, 1 [place] 40 [place] 00 :00 dose, On Medical [facility] 10/14/22 at 1145, LAURYN ipratropium 2021-11- No 3mL 3 mL, Univ ers -albuteroL 12-15 12- Inhalation it y of (DUONEB) 17:30: 16:41 , ONCE, 1 [place] 0.5 mg-3 00 :00 dose, On Medical mg(2.5 mg Thu)/3 mL 10/14/22 at nebulizer 1130, solution 3 Routine mL FENTanyl PF 2021-11- No 50ug 50 mcg, Un odalys (SUBLIMAZE 12-15- Slow IV ity o f (PF)) 16:45: 16:39 Push, [place] injection 00 :00 ONCE, 1 Medical 50 mcg dose, On Branch e 10/14/22 at 1045, Routine levoFLOXaci 2021-11 Yes [id number] 750mg Take 1 Univers n 750 mg 2-06 tablet by ity of tablet 00:00: mouth [place] 00 every 24 Medical (twenty-fo Branch ur) hours. HYDROcodone 2021- No 1{tbl} 1 tablet, Univers -acetaminop 5- 05-04 Oral, ity of hen (NORCO) 12:15: 11:21 [place]CE[place] 1 [place] 10-325 mg 00 :00 dose, On Medica l tablet 1 Thu03/12/22 Bran h tablet at 0715, Routine HYDROcodone 2021- No 4647 1{tbl} Take 1 U nivers -acetaminop 5- 05-12 tablet by it y of hen [...] First dose Medic al mg(2.5 mg on Thu Branch )/3 mL 02/20/22 at nebulizer 0800, solution 3 Until mL Discontinu ed, Routine methylPREDN 2021- No 40mg 40 mg, Uni vers ISolone sod 4-14 04-14 Intravenou i ty of succ 11:45: 10:43 s, ONCE, 1 [place] (SOLU-MEDRO 00 :00 dose, On Medi keo [...] 0645, STAT ipratropium No 3mL 3 mL, Univ ers -albuteroL 02-20 Inhalation it y of (DUONEB) 10:30: 09:34 , ONCE, 1 [place] 0.5 mg-3 00 :00 dose, On Medical mg(2.5 mg Kym Branch base)/3 mL 02/20/22 at nebulizer 0530, solution 3 Routine mL albuterol Yes [id number] 2{puff} Inhale 2 Univers 90 4-14 Puffs ity of mcg/actuati 00:00: every 4 Sa[place] as on inhaler 00 (four) Medical hours as Branch needed for Wheezing or Shortness of Breath. albuterol Yes [id number] 2.5mg Inhale 3 Univers 2.5 mg /3 4-14 mL every 4 ity of mL (0.083 00:00: (four) [place] %) 00 hours. May Medical nebulizer also Branch solution nebulize one extra every 6 hours. budesonide- Yes [id number] 2{puff} Inhale 2 Univers formoteroL 4-14 Puffs 2 ity of 160-4.5 00:00: (two) [place] mcg/actuati 00 times Medical on inhaler daily. Branch triamterene Yes [id number] 1{tbl} Take 1 Univers -hydrochlor 4-14 tablet by ity of othiazid 00:00: mouth [place] 37.5-25 mg 00 daily. Medical tablet Branch chlordiazeP Yes [id number] 25mg Take 1 Univers OXIDE 25 mg 4-14 capsule by it y of capsule 00:00: mouth [place] 00 every 6 Medical (six) Branch hours as needed for Anxiety, Agitation, Heart Rate => 100 or Detox. predniSONE Yes [id number] TAKE ONE Univers 10 mg 4-14 TABLET BY ity of tablet 00:00: MOUTH [place] 00 DAILY Medical Branch albuterol Yes [id number] 2{puff} Inhale 2 Univers 90 4-14 Puffs ity of mcg/actuati 00:00: every 4 [place] as on inhaler 00 (four) Medical hours as Branch needed for Wheezing or Shortness of Breath. albuterol Yes [id number] 2.5mg Inhale 3 Univers 2.5 mg /3 4-14 mL every 4 ity of mL (0.083 00:00: (four) [place] %) 00 hours. May Medical nebulizer also Branch solution nebulize one extra every 6 hours. budesonide- Yes [id number] 2{puff} Inhale 2 Univers formoteroL 4-14 Puffs 2 ity of 160-4.5 00:00: (two) [place] mcg/actuati 00 times Medical on inhaler daily. Branch triamterene Yes [id number] 1{tbl} Take 1 Univers -hydrochlor 4-14 tablet by ity of othiazid 00:00: mouth [place] 37.5-25 mg 00 daily. Medical tablet Branch chlordiazeP Yes [id number] 25mg Take 1 Univers OXIDE 25 mg 4-14 capsule by it y of capsule 00:00: mouth [place] 00 every 6 Medical (six) Branch hours as needed for Anxiety, Agitation, Heart Rate => 100 or Detox. predniSONE Yes [id number] TAKE ONE Univers 10 mg 4-14 TABLET BY ity of tablet 00:00: MOUTH [place] 00 DAILY Medical Branch albuterol Yes [id number] 2{puff} Inhale 2 Univers 90 4-14 Puffs ity of mcg/actuati 00:00: every 4 [place] as on inhaler 00 (four) Medical hours as Branch needed for Wheezing or Shortness of Breath. albuterol Yes [id number] 2.5mg Inhale 3 Univers 2.5 mg /3 4-14 mL every 4 ity of mL (0.083 00:00: (four) [place] %) 00 hours. May Medical nebulizer also Branch solution nebulize one extra every 6 hours. budesonide- Yes [id number] 2{puff} Inhale 2 Univers formoteroL 4-14 Puffs 2 ity of 160-4.5 00:00: (two) [place] mcg/actuati 00 times Medical on inhaler daily. Branch triamterene Yes [id number] 1{tbl} Take 1 Univers -hydrochlor 4-14 tablet by ity of othiazid 00:00: mouth [place] 37.5-25 mg 00 daily. Medical tablet Branch chlordiazeP Yes [id number] 25mg Take 1 Univers OXIDE 25 mg 4-14 capsule by it y of capsule 00:00: mouth [place] 00 every 6 Medical (six) Branch hours as needed for Anxiety, Agitation, Heart Rate => 100 or Detox. predniSONE Yes [id number] TAKE ONE Univers 10 mg 4-14 TABLET [...] times Medical on inhaler daily. Branch albuterol 2017- Yes 2.5mg Inhale 3 Uni vers 2.5 mg /3 9-07 mL every 4 ity of mL (0.083 00:00: (four) [place] %) 00 hours as Medical nebulizer needed for Bran ch solution Wheezing or Shortness of Breath. budesonide- 2017-0 [...] ch solution Wheezing or Shortness of Breath. gabapentin Yes 100mg Take 100 Un odalys 100 mg 5-18 mg by ity of capsule 16:32: mouth 2 [place] 14 (two) Medical times [place] daily as needed ([facility] pain). foLIC acid Yes 1mg Take 1 mg Un odalys 1 mg tablet 5-18 by mouth ity of 16:32: daily. [place] 14 Medical Branch triamterene 2017-0 Yes 1{capsu Take 1 U nivers -hydrochlor 5-18 le} capsule by it y of othiazide 16:32: mouth [place] 37.5-25 mg 14 every Medical per capsule morning. Bran ch amLODIPine 2018-0 Yes 10mg Take 10 mg U nivers 10 mg 5-18 by mouth ity of tablet 16:32: at [place] 14 bedtime. Medical Branch gabapentin 2018-0 Yes 100mg Take 100 Un odalys 100 mg 5-18 mg by ity of capsule 16:32: mouth 2 [place] 14 (two) Medical times Branch daily as needed ([facility] pain). foLIC acid 2018-0 Yes 1mg Take 1 mg Un odalys 1 mg tablet 5-18 by mouth ity of 16:32: daily. [place] [address] Medical Branch triamterene 0 Yes 1{capsu Take 1 U nivers -hydrochlor 5-18 le} capsule by it y of othiazide 16:32: mouth [place] 37.5-25 mg 14 every Medical per capsule morning. Bran ch amLODIPine 2018-0 Yes 10mg Take 10 mg U nivers 10 mg 5-18 by mouth ity of tablet 16:32: at [place] [address] bedtime. Medical Branch gabapentin 2018-0 Yes 100mg Take 100 Un odalys 100 mg 5-18 mg by ity of capsule 16:32: mouth 2 [place] 14 (two) Medical times [place] daily as needed ([facility] pain). foLIC acid 2018-0 Yes 1mg Take 1 mg Un odalys 1 mg tablet 5-18 by mouth ity of 16:32: daily. [address] triamterene 2017-0 Yes 1{capsu Take 1 U nivers -hydrochlor 5-18 le} capsule by it y of othiazide 16:32: mouth [place] 37.5-25 mg 14 every Medical per capsule morning. Bran ch amLODIPine 2017-0 Yes 10mg Take 10 mg U nivers 10 mg 5-18 by mouth ity of tablet 16:32: at [place] 14 bedtime. Medical Branch budesonide- 2017-0 Yes 2{puff} Inhale 2 Univers formoterol 5-18 Puffs 2 ity of 160-4.5 00:00: (two) [place] mcg/actuati 00 times Medical on inhaler daily. Branch budesonide- 2017-0 Yes 2{puff} Inhale 2 Univers formoterol 5-18 Puffs 2 ity of 160-4.5 00:00: (two) [place] mcg/actuati 00 times Medical on inhaler daily. Branch budesonide- 2018-0 Yes 2{puff} Inhale 2 Univers formoterol 5-18 Puffs 2 ity of 160-4.5 00:00: (two) [place] mcg/actuati 00 times Medical on inhaler daily. Branch Immunizations Ordered Filled Immunization Date Status Comments [facility] Immunization Name Name SARS-COV-2 COVID-19 2021-02-03 Completed Unive rsity of PFIZER VACCINE 00:00:00 [facility] SARS-COV-2 COVID-19 2021-02-03 Completed Unive rsity of PFIZER VACCINE 00:00:00 [facility] SARS-COV-2 COVID-19 2021-02-03 Completed Unive rsity of PFIZER VACCINE 00:00:00 [facility] SARS-COV-2 COVID-19 2021-01-13 Completed Unive rsity of PFIZER VACCINE 00:00:00 [facility] SARS-COV-2 COVID-19 2021-01-13 Completed Unive rsity of PFIZER VACCINE 00:00:00 [facility] SARS-COV-2 COVID-19 2021-01-13 Completed Unive rsity of PFIZER VACCINE 00:00:00 [facility] Pneumococcal 2018-03-26 Completed University o f Polysaccharide, 00:00:00 [place] [facility] ical PPSV23 (PNEUMOVAX) [place] Influenza Virus 2018-03-26 Completed Universit y of Vaccine Quad IM 3+ 00:00:00 [facility] Pneumococcal 2018-03-26 Completed University o f Polysaccharide, 00:00:00 [place] Med ical PPSV23 (PNEUMOVAX) [place] Influenza Virus 2018-03-26 Completed Universit y of Vaccine Quad IM 3+ 00:00:00 [facility] Pneumococcal 2018-03-26 Completed University o f Polysaccharide, 00:00:00 [place] Med ical PPSV23 (PNEUMOVAX) [place] Influenza Virus 2018-03-26 Completed Universit y of Vaccine Quad IM 3+ 00:00:00 [facility] Vital Signs Vital Name Observation Time Observation Value Comments Source Systolic blood 2022-10-14 19:43:00 111 mm[Hg] Univer sity of pressure [facility] Diastolic blood 2022-10-14 19:43:00 74 mm[Hg] Unive rsity of pressure [place] [facility] Heart rate 2022-10-14 19:43:00 98 /min Universi ty of [place] [facility] Body temperature 2022-10-14 19:43:00 36.39 Debbie Univ ersity of [place] [facility] Respiratory rate 2022-10-14 19:43:00 22 /min Univ ersity of [place] [facility] Oxygen saturation in 2022-10-14 19:43:00 94 /min University of Arterial blood by [facility] keo Pulse oximetry Branch Body height 2022-10-14 16:13:00 162.6 cm Universi ty of [place] [facility] Body weight 2022-10-14 16:13:00 81.647 kg Universi ty of [place] [facility] BMI 2022-10-14 16:13:00 30.90 kg/m2 Universi ty of [place] [facility] Systolic blood 2022-03-12 10:13:00 119 mm[Hg] Univer sity of pressure [place] [facility] Diastolic blood 2022-03-12 10:13:00 75 mm[Hg] Unive rsity of pressure [place] [facility] Heart rate 2022-03-12 10:13:00 105 /min Universi ty of [place] [facility] Body temperature 2022-03-12 10:13:00 37.28 Debbie Univ ersity of [place] [facility] Respiratory rate 2022-03-12 10:13:00 19 /min Univ ersity of [place] [facility] Body height 2022-03-12 10:13:00 162.6 cm Universi ty [facility] [place] [facility] Body weight 2022-03-12 10:13:00 99.791 kg Universi ty of [place] [facility] BMI 2022-03-12 10:13:00 37.76 kg/m2 Universi ty of [place] [facility] Oxygen saturation in 2022-03-12 10:13:00 96 /min University of Arterial blood by [facility] keo Pulse oximetry Branch Systolic blood 2022-02-20 11:57:00 155 mm[Hg] Univer sity of pressure [place] [facility] Diastolic blood 2022-02-20 11:57:00 88 mm[Hg] Unive rsity of pressure [place] [facility] Heart rate 2022-02-20 11:57:00 105 /min Universi ty of [place] [facility] Respiratory rate 2022-02-20 11:57:00 18 /min [facility] Oxygen saturation in 2022-02-20 11:57:00 100 /min [facility] Arterial blood by [facility] Pulse oximetry Branch Body temperature 2022-02-20 09:25:00 37 Debbie [facility] Body height 2022-02-20 09:25:00 162.6 cm [facility] Body weight 2022-02-20 09:25:00 96.163 kg [facility] BMI 2022-02-20 09:25:00 36.39 kg/m2 [facility] Procedures Procedure Date / Time Performing Clinician Source Performed CT ABDOMEN PELVIS W 2022-10-14 17:33:00 Melinda Maciel [facility] CONTRAST [facility] XR CHEST 1 VW 2022-10-14 17:10:[address] [facility] TROPONIN I 2022-10-14 16:37:[address] [facility] COMP. METABOLIC PANEL 2022-10-14 16:37:00 Melinda Maciel [facility] [place] [facility] ([id number]) [facility] CBC WITH DIFF 2022-10-14 16:37:[address] [facility] PROTHROMBIN TIME / INR 2022-10-14 16:37:00 Melinda Maciel [facility] URINALYSIS 2022-10-14 16:37:[address] [facility] N-TERMINAL PRO-BNP 2022-10-14 16:37:00 Melinda Maciel [facility] CONSENT/REFUSAL FOR 2022-10-14 15:56:36 Doctor Unassigned, No Un iversity of [place] DIAGNOSIS AND TREATMENT Name Medical Branch CONSENT/REFUSAL FOR 2022-03-12 10:03:12 [facility] Medical Branch XR CHEST 1 VW 2022-02-20 09:59:00 Christy Shaw [facility] [place] [facility] LIPASE 2022-02-20 09:30:00 Christy Shaw [facility] [place] [facility] TROPONIN I 2022-02-20 09:30:00 Christy Shaw [facility] [place] [facility] COMP. METABOLIC PANEL 2022-02-20 09:30:00 Christy Shaw [facility] ([id number]) [facility] CBC WITH DIFF 2022-02-20 09:30:00 Christy Shaw [facility] [place] [facility] N-TERMINAL PRO-BNP 2022-02-20 09:30:00 Christy Shaw [facility] NOTICE OF PRIVACY 2022-02-20 09:15:02 Doctor Unassigned, No Univ [facility] Name [facility] Branch CONSENT/REFUSAL FOR 2022-02-20 09:14:47 Doctor Unassigned, No [facility] DIAGNOSIS AND TREATMENT Name [facility] Encounters Start End Encounter Admission Attending Care Care Encounter Source Date/Time Date/Time Type Type Clinicians Facility Department ID 2022-10-14 2022-10-14 Emergency [facility] [id number] Univers 10:07:00 14:39:00 Melinda SMITH [id number] [facility] [id number] [facility] [id number] [address] 2022-10-14 2022-10-14 Emergency [facility] [id number] Univers 10:07:00 14:39:[address] [facility] 2022-03-12 2022-03-12 Emergency X [facility]LY [facility] ERT [id number] Univers 05:15:00 06:41:[address] [facility] 2022-03-12 2022-03-12 [facility] [id number] Univers 05:15:00 06:41:00 Christy SMITH [id number] ity [facility] [id number] [facility] [id number] [address] 2022-02-20 2022-02-20 Emergency X [facility]ORMERLY [facility] ERT [id number] Univers 04:17:00 07:16:00 [facility] 2022-02-20 [facility] [id number] Univers 04:17:00 07:16:00 Christy SMITH [id number] [facility] [id number] [facility] [id number] [facility] 084 Branch 2021-02-03 2021-02-03 Outpatient R PINEDA, [facility] [id number] Univers 11:10:00 11:10:00 [facility] 2021-01-13 2021-01-13 Outpatient [facility] [id number] Univers 11:20:00 11:20:00 [facility] 2020-11-10 2020-11-10 [facility] [id number] Univers 08:20:00 08:20:00 KARLEY [facility] Results Test Description Test Time Test Comments Results Result Comments Source TROPONIN I 2022-02-20 10:16:22 Test Item Value Reference Range Interpretation Comme nts TROPONIN I (test code = 0.007 ng/mL See_Comment [Au tomated message] The [id number]) system which ge nerated this result tra [...] biotin. Lab Interpretation Normal (test code = 82345-6) [facility] [id number] 10:13:01 Test Item Value Reference Range Interpretation Comments NT-proBNP (test code 52 pg/mL See_Comment [Autom ated = 3327984907) message] The system which generated this result transmitted reference range : <=125. The reference range was not used to interpret this result as normal/abnormal . LOUISE (test code = LOUISE) Biotin has been reported to cause a negative bias, interpret results relative to patient's use of biotin. Lab Interpretation Normal (test code = 35259-9) [facility]. METABOLIC PANEL (91496)2022-02-20 10:04:02 Test Item Value Reference Range Interpretation Comments NA (test code = 137 mmol/L 135-145 3327026355) K (test code = 3.6 mmol/L 3.5-5.0 3354754590) CL (test code = 99 mmol/L 98-108 8657771096) CO2 TOTAL (test code = 25 mmol/L 23-31 0604274425) AGAP (test code = 2-16 0644835187) BUN (test code = 6 mg/dL 7-23 L 3207189161) GLUCOSE (test code = 88 mg/dL 70-110 9729565413) CREATININE (test code = 0.55 mg/dL 0.60-1.25 L 9249567765) TOTAL BILI (test code = 0.8 mg/dL 0.1-1.3 6883064578) CALCIUM (test code = 8.9 mg/dL 8.6-10.6 1319808458) T PROTEIN (test code = 7.5 g/dL 6.3-8.2 6123823999) ALBUMIN (test code = 4.8 g/dL 3.5-5.0 5927691297) ALK PHOS (test code = 113 U/L 34-122 8227937928) ALTv (test code = 84 U/L 5-50 H 1742-6) AST(SGOT) (test code = 107 U/L 13-40 H 6221302746) eGFR (test code = mL/min/1.73m2 7649004776) LOUISE (test code = LOUISE) Association of [...] tests). Lab Interpretation Abnormal (test code = 40632-7) [facility] [place] [facility] [id number] 10:03:21 Test Item Value Reference Range Interpretation Comments LIPASE (test code = 2942687867) 193 U/L 0-220 Lab Interpretation (test code = Normal 85909-7) [facility] WITH [id number] 09:39:17 Test Item Value Reference Range Interpretation Comments WBC (test code = See_Comment [Automated 6890-2) message] The sy stem which generated this result transmitted reference range : 4.20 - 10.70 10*3/?L. The reference range was not used to interpret this result as normal/abnormal . RBC (test code = See_Comment [Automated 859-8) message] The sy stem which generated this [...] RDW-SD (test code = 44.4 fL 38.5-51.6 00129-0) RDW-CV (test code = 11.9 % 12.1-15.4 L 788-0) PLT (test code = See_Comment [Automated 777-3) message] The sy stem which generated this result transmitted reference range : 150 - 328 10*3/ ?L. The reference r ernie was not used to interpret this result as normal/abnormal . MPV (test code = 9.2 fL 9.8-13.0 L 58860-7) NRBC/100 WBC (test See_Comment [Automat ed code = 4099707399) message] The system which generated this result transmitted reference range : 0.0 - 10.0 /100 WBCs. The refer ence range was not u sed to interpret th is result as normal/abnormal . NRBC x10^3 (test code <0.01 See_Comment [Auto mated = 6142774811) message] The s ystem which generated this result transmitted reference range : 10*3/?L. The reference range was not used to interpret this result as normal/abnormal . GRAN MAT (NEUT) % 69.9 % (test code = 770-8) IMM GRAN % (test code 1.50 % = 6718990558) LYMPH % (test code = 18.9 % 736-9) MONO % (test code = 7.0 % 5905-5) EOS % (test code = 1.9 % 713-8) BASO % (test code = 0.8 % 706-2) GRAN MAT x10^3(ANC) 7.15 10*3/uL 1.99-6.95 H (test code = 8202555936) IMM GRAN x10^3 (test 0.15 10*3/uL 0.00-0.06 H code = 9199614271) LYMPH x10^3 (test code 1.93 10*3/uL 1.09-3.23 = 731-0) MONO x10^3 (test code 0.72 10*3/uL 0.36-1.02 = 742-7) EOS x10^3 (test code = 0.19 10*3/uL 0.06-0.53 711-2) BASO x10^3 (test code 0.08 10*3/uL 0.01-0.09 = 704-7) Lab Interpretation Abnormal (test code = 56953-9) [facility] [place] [facility]"
[2022-11-24] MEDS ORDERED: MORPHINE 4 MG/ML SYR ONE (04:29)
[2022-11-24] MEDS ORDERED: ONDANSETRON 4 MG/2 ML VIAL ONE (04:29)
[2022-11-24] MEDS ORDERED: NA CHLORIDE 0.9% 500 ML ONE (04:35)
[2022-11-24] MEDS ORDERED: FAMOTIDINE 20 MG/2 ML VIAL IV ONE (04:35)
[2022-11-24 04:42] LABS: Hematocrit 48.2 % (39.6-49.0); Lymphocytes % 25.1 % (15.3-44.8); MCV 101.4 fL (80-100); MPV 7.3 fL (7.6-11.3); RBC Red Blood Cell Count 4.76 M/uL (4.33-5.43)
[2022-11-24 04:59] LABS: Troponin High Sensitivity 7.1 pg/mL (<58.9)
[2022-11-24 05:00] LABS: Potassium 3.9 mmol/L (3.5-5.1)
[2022-11-24] MEDS ORDERED: METOCLOPRAMIDE 10 MG/2mL INJ ONE (06:17)
[2022-11-24] MEDS ORDERED: MEPERIDINE HCL 25 MG/ML SYR ONE (06:19)
[2022-11-24] MEDS ORDERED: MAGNES/ALUMIN/SIMET 30ML UCUP ONE (06:35)
[2022-11-24] MEDS ORDERED: LIDOCAINE VISCOUS 2% SOLN 15 ML UDC ONE (06:35)
[2022-11-24] MEDS ORDERED: PROMETHAZINE INJ 25 MG/ML AMP ONE (07:17)
[2022-11-24] MEDS ORDERED: FENTANYL CITR 100 MCG/2 ML ONE (07:18)
--- NOTE | 2022-11-24 07:57 | EDPHYS ---
Physician Documentation [facility] Name: Randy Briones Age: 52 yrs Sex: Male : 1970 Arrival Date: 11/24/2022 Time: 04:17 Bed 6 Private MD: ED Physician Bonilla Jose HPI: 11/24 06:14 This 52 yrs old Male presents to ER via EMS with complaints of abdominal pain. kdr 06:14 Patient states that he had acute onset of chest pain about an hour ago. It woke him up kdr from sleep. He is also vomited a number of times since then. His pain is in the epigastric and left anterior chest and acute abdomen. Onset: The symptoms/episode began/occurred suddenly, just prior to arrival. Severity of symptoms: At their worst the symptoms were moderate severe incapacitating in the emergency department the symptoms are unchanged. The patient has not experienced similar symptoms in the past. The patient has not recently seen a physician. Historical: - Allergies: 04:21 Lisinopril; kl - Home Meds: 04:21 Advair Diskus 250-50 mcg/dose inhalation dsdv [Active]; albuterol sulfate 2.5 mg /3 mL kl (0.083 %) Inhl nebu 3 mL 3 times per day [Active]; gabapentin 100 mg Oral cap 3 caps 3 times per day [Active]; montelukast 10 mg Oral tab 1 tab once daily [Active]; Nexium 40 mg Oral cpDR 1 cap 2 times per day [Active]; Norvasc 10 mg Oral tab once daily [Active]; - PMHx: 04:21 Alcoholism; COPD; Hypertension; kl - PSHx: 04:21 Amputation of left index finger; kl - Immunization history:: Adult Immunizations not up to date. - Social history:: Smoking status: Patient reports the use of cigarette tobacco products, smokes one pack cigarettes per day. ROS: 06:14 Constitutional: Negative for fever, chills, and weight loss, Eyes: Negative for injury, kdr pain, redness, and discharge, Neck: Negative for injury, pain, and swelling, Back: Negative for injury and pain, Skin: Negative for injury, rash, and discoloration, Neuro: Negative for headache, weakness, numbness, tingling, and seizure activity. Psych: Negative for depression, anxiety, suicide ideation, homicidal ideation, and hallucinations. 06:14 Cardiovascular: Positive for chest pain, Negative for edema, orthopnea, palpitations. Exam: 06:14 Constitutional: This is a well developed, well nourished patient who is awake, alert, kdr and in no acute distress. Head/Face: Normocephalic, atraumatic. Eyes: Pupils equal round and reactive to light, extra-ocular motions intact. Lids and lashes normal. Conjunctiva and sclera are non-icteric and not injected. Cornea within normal limits. Periorbital areas with no swelling, redness, or edema. Neck: Trachea midline, no thyromegaly or masses palpated, and no cervical lymphadenopathy. Supple, full range of motion without nuchal rigidity, or vertebral point tenderness. No Meningismus. Chest/axilla: Normal chest wall appearance and motion. Nontender with no deformity. No lesions are appreciated. Cardiovascular: Regular rate and rhythm with a normal S1 and S2. No gallops, murmurs, or rubs. Normal PMI, no JVD. No pulse deficits. Respiratory: Lungs have equal breath sounds bilaterally, clear to auscultation and percussion. No rales, rhonchi or wheezes noted. No increased work of breathing, no retractions or nasal flaring. Abdomen/GI: Soft, non-tender, with normal bowel sounds. No distension or tympany. No guarding or rebound. No evidence of tenderness throughout. Back: No spinal tenderness. No costovertebral tenderness. Full range of motion. Skin: Warm, dry with normal turgor. Normal color with no rashes, no lesions, and no evidence of cellulitis. MS/ Extremity: Pulses equal, no cyanosis. Neurovascular intact. Full, normal range of motion. Neuro: Awake and alert, GCS 15, oriented to person, place, time, and situation. Cranial nerves II-XII grossly intact. Motor strength 5/5 in all extremities. Sensory grossly intact. Cerebellar exam normal. Normal gait. Psych: Awake, alert, with orientation to person, place and time. Behavior, mood, and affect are within normal limits. Vital Signs: 04:19 BP 153 / 111; Pulse 92; Resp 22; Temp 98(O); Pulse Ox 90% on R/A; Pain 10/10; kl 05:45 BP 155 / 86; Pulse 82; Resp 22; Pulse Ox 91% on R/A; kl 06:41 BP 137 / 71; Pulse 79; Resp 23 S; Pulse Ox 92% on R/A; aa9 07:00 BP 130 / 90; Pulse 97; Resp 16 S; Pulse Ox 92% on 3 lpm NC; Weight 96.16 kg (R); Height kc6 5 ft. 4 in. (162.56 cm) (R); Pain 10/10; 08:00 BP 157 / 85; Pulse 91; Resp 18 S; Pulse Ox 94% on 3 lpm NC; kc6 09:00 BP 151 / 82; Pulse 95; Resp 16 S; Pulse Ox 92% on 3 lpm NC; kc6 10:00 BP 173 / 98; Pulse 95; Resp 12 S; Pulse Ox 96% on 3 lpm NC; kc6 11:00 BP 144 / 88; Pulse 86; Resp 14 S; Pulse Ox 92% on 3 lpm NC; kc6 07:00 Body Mass Index 36.39 (96.16 kg, 162.56 cm) [facility] MDM: 06:14 Data reviewed: vital signs, nurses notes, lab test result(s), EKG, radiologic studies. kdr Consideration of Admission/Observation Patient was admitted/placed on observation. Escalation of care including admission/observation considered. 07:56 Patient medically screened. kdr 11/24 04:23 Order name: Basic Metabolic Panel; Complete Time: 06:10 11/24 04:23 Order name: CBC with Diff; Complete Time: 06:10 11/24 04:23 Order name: Troponin HS; Complete Time: 06:10 kl 11/24 04:27 Order name: ETOH Level; Complete Time: 06:10 [facility] 11/24 04:38 Order name: Lipase; Complete Time: 06:10 EDIL 11/24 04:23 Order name: XRAY Chest (1 view) 11/24 06:11 Order name: Troponin High Sensitivity: Draw 2 hours after initial draw; Complete Time: kdr 07:45 11/24 08:37 Order name: SARS-COV-2 Antigen Rapid 11/24 11:07 Order name: Phosphorus EDMS 11/24 11:07 Order name: Creatine Phosphokinase EDIL 11/24 11:07 Order name: T4 Free EDIL 11/24 11:07 Order name: Magnesium EDIL 11/24 11:07 Order name: Thyroid Stimulating Hormone [facility] 11/24 04:23 Order name: EKG; Complete Time: 04:24 kl 11/24 04:23 Order name: Cardiac monitoring; Complete Time: 04:23 kl 11/24 04:23 Order name: EKG - Nurse/Tech; Complete Time: 04:23 kl 11/24 04:23 Order name: IV Saline Lock; Complete Time: 04:23 kl 11/24 04:23 Order name: Labs collected and sent; Complete Time: 04:39 kl 11/24 04:27 Order name: CT Abd/Pelvis - IV Contrast Only kdr 11/24 09:46 Order name: Thorax Wo Con EDIL 11/24 04:23 Order name: O2 Per Protocol; Complete Time: 04:39 kl 11/24 04:23 Order name: O2 Sat Monitoring; Complete Time: 04:39 kl Administered Medications: 04:31 Drug: morphine 4 mg Route: IVP; Infused Over: 4 mins; Site: right antecubital; aa9 05:31 Follow up: Response: No adverse reaction; Pain is unchanged, physician notified; RASS: kc6 Alert and Calm (0) 04:31 Drug: Zofran (Ondansetron) 4 mg Route: IVP; Site: right antecubital; aa9 05:31 Follow up: Response: No adverse reaction; Nausea unchanged kc6 04:37 Drug: NS 0.9% 500 ml Route: IV; Rate: bolus; Site: right antecubital; aa9 05:37 Follow up: Response: No adverse reaction; IV Status: Completed infusion; IV Intake: kc6 500ml 04:37 Drug: Pepcid (famotidine) 20 mg Route: IVP; Site: right antecubital; aa9 05:37 Follow up: Response: No adverse reaction kc6 06:10 Drug: Demerol (meperidine) 25 mg Route: IVP; Site: right antecubital; aa9 07:10 Follow up: Response: No adverse reaction; Pain is unchanged, physician notified; RASS: kc6 Restless (+1) 06:15 Drug: Reglan (metoCLOPramide) 20 mg Route: IVP; Site: right antecubital; aa9 07:15 Follow up: Response: No adverse reaction; Nausea unchanged kc6 06:35 Drug: GI Cocktail without - (Maalox Suspension 30 ml, Lidocaine Liquid 2 % 15 aa9 ml) Route: PO; 07:31 Follow up: Response: No adverse reaction; Nausea unchanged kc6 07:25 Drug: fentaNYL (PF) 50 mcg Route: IVP; Site: right antecubital; kc6 08:20 Follow up: Response: No adverse reaction; Pain is decreased; RASS: Alert and Calm (0) kc6 07:25 Drug: Phenergan (promethazine) 12.5 mg Route: IVP; Site: right antecubital; kc6 08:20 Follow up: Response: No adverse reaction; Nausea is decreased kc6 Disposition Summary: 11/24/22 07:56 Hospitalization Ordered Hospitalization Status: Observation kdr Location: Telemetry/MedSurg (observation) kdr Condition: Fair kdr Problem: new kdr Symptoms: have improved kdr Bed/Room Type: Standard kdr Provider: Rodo Donovan(11/24/22 08:22) dianne Room Assignment: [facility](11/24/22 11:02) bd Diagnosis - Chest pain, unspecified kdr - Vomiting kdr - Cyclical vomiting, intractable kdr Forms: - Medication Reconciliation Form kdr - SBAR form kdr Signatures: Dispatcher [employer] EDMS Leticia Alvarez bd Mariely Cano, Bonilla York RN, MD MD kdr Mickail, Joel, PA PA [facility] Jacqueline Malloy RN RN aa9 Manda Samaniego RN RN kc6 Corrections: (The following items were deleted from the chart) 04:38 04:28 LIPASE+C.LAB.BRZ ordered. EDIL EDIL 08:22 07:56 Shay Curran kdr [facility] 11:02 07:56 kdr bd
--- NOTE | 2022-11-24 07:57 | ER ---
Nurse's Notes [facility] Name: Randy Briones Age: 52 yrs Sex: Male : 1970 Arrival Date: 11/24/2022 Time: 04:17 Bed 6 Private MD: Diagnosis: Chest pain, unspecified;Vomiting;Cyclical vomiting, intractable Presentation: 11/24 04:19 Chief complaint: Patient states: chest pain approx 1 hour [employer] woke up out of sleep also kl reports emesis pain is in epigastric area. Coronavirus screen: Vaccine status: Patient reports being unvaccinated. Ebola Screen: Patient negative for fever greater than or equal to 101.5 degrees Fahrenheit, and additional compatible Ebola Virus Disease symptoms. Initial Sepsis Screen: Does the patient meet any 2 criteria? Yes Does the patient have a suspected source of infection? No. Patient's initial sepsis screen is negative. Risk Assessment: Do you want to hurt yourself or someone else? Patient reports no desire to harm self or others. 04:19 Method Of Arrival: EMS: [facility] 04:19 Acuity: CANDACE 3 kl Triage Assessment: 04:22 General: Appears distressed, uncomfortable, unkempt, Behavior is anxious, restless. kl Pain: Complains of pain in diaphragm and xiphoid area Pain currently is 10 out of 10 on a pain scale. EENT: No deficits noted. Neuro: No deficits noted. Level of Consciousness is awake, alert, obeys commands, Oriented to person, place, time, situation, Cardiovascular: Reports chest pain, nausea, vomiting, Rhythm is sinus rhythm. Historical: - Allergies: 04:21 Lisinopril; kl - Home Meds: 04:21 Advair Diskus 250-50 mcg/dose inhalation dsdv [Active]; albuterol sulfate 2.5 mg /3 mL kl (0.083 %) Inhl nebu 3 mL 3 times per day [Active]; gabapentin 100 mg Oral cap 3 caps 3 times per day [Active]; montelukast 10 mg Oral tab 1 tab once daily [Active]; Nexium 40 mg Oral cpDR 1 cap 2 times per day [Active]; Norvasc 10 mg Oral tab once daily [Active]; - PMHx: 04:21 Alcoholism; COPD; Hypertension; kl - PSHx: 04:21 Amputation of left index finger; kl - Immunization history:: Adult Immunizations not up to date. - Social history:: Smoking status: Patient reports the use of cigarette tobacco products, smokes one pack cigarettes per day. Screenin:12 [facility] ED Fall Risk Assessment (Adult) History of falling in the last 3 months, kc6 including since admission No falls in past 3 months (0 pts) Confusion or Disorientation No (0 pts) Intoxicated or Sedated No (0 pts) Impaired Gait No (0 pts) Mobility Assist Device Used No (0 pt) Altered Elimination No (0 pt) Score/Fall Risk Level 0 - 2 = Low Risk Oriented to surroundings, Maintained a safe environment, Educated pt \T\ family on fall prevention, incl call for assistance when getting out of bed, Assessed \T\ reinforced patient's understanding of fall precautions, Hourly rounding (assess needs \T\ fall precautionary measures) done. Abuse screen: Denies threats or abuse. Denies injuries from another. Nutritional screening: No deficits noted. Tuberculosis screening: No symptoms or risk factors identified. Assessment: 04:39 Respiratory: Airway is patent Respiratory effort is even, unlabored. GI: Pt is actively aa9 vomiting clear fluid. 06:12 Reassessment: Patient and/or family updated on plan of care and expected duration. Pain aa9 level reassessed. c/o chest pain, notified Damon VARGAS. 06:41 Reassessment: Patient appears in no apparent distress at this time. Patient and/or aa9 family updated on plan of care and expected duration. Pain level reassessed. Patient is alert, oriented x 3, equal unlabored respirations, skin warm/dry/pink. 07:00 General: Appears in no apparent distress. uncomfortable, Behavior is restless. Pain: kc6 Complains of pain in chest Pain does not radiate. Pain currently is 10 out of 10 on a pain scale. Quality of pain is described as sharp, Is continuous, Alleviated by nothing. Noted to be moaning, restless, Also complains of nausea. Neuro: Macario Agitation-Sedation Scale (RASS): +1 Restless Level of Consciousness is awake, alert, obeys commands, Oriented to person, place, time, situation, Appropriate for age. Cardiovascular: Heart tones S1 S2 present Capillary refill < 3 seconds Rhythm is sinus tachycardia. Respiratory: Airway is patent Trachea midline Respiratory effort is even, unlabored, Respiratory pattern is regular, symmetrical, Breath sounds with wheezes bilaterally. GI: Abdomen is flat, non-distended, Pt is actively vomiting clear fluid, Bowel sounds present X 4 quads. Abd is soft and non tender X 4 quads. : No signs and/or symptoms were reported regarding the genitourinary system. EENT: No signs and/or symptoms were reported regarding the EENT system. Derm: No signs and/or symptoms reported regarding the dermatologic system. Skin is intact, Skin is pink, warm \T\ dry. Musculoskeletal: No signs and/or symptoms reported regarding the musculoskeletal system. Circulation, motion, and sensation intact. Capillary refill < 3 seconds, Range of motion: intact in all extremities. 08:00 Reassessment: Patient appears in no apparent distress at this time. Patient and/or kc6 family updated on plan of care and expected duration. Pain level reassessed. eyes closed, respirations even and unlabored. appears to be resting comfortably. easily aroused. awake, alert and oriented x4. skin is warm, dry, and pink. 09:00 Reassessment: Patient appears in no apparent distress at this time. No changes from kc6 previously documented assessment. Patient and/or family updated on plan of care and expected duration. Pain level reassessed. Patient is alert, oriented x 3, equal unlabored respirations, skin warm/dry/pink. 10:00 Reassessment: Patient appears in no apparent distress at this time. No changes from kc6 previously documented assessment. Patient and/or family updated on plan of care and expected duration. Pain level reassessed. Patient is alert, oriented x 3, equal unlabored respirations, skin warm/dry/pink. 11:00 Reassessment: Patient appears in no apparent distress at this time. No changes from kc6 previously documented assessment. Patient and/or family updated on plan of care and expected duration. Pain level reassessed. Patient is alert, oriented x 3, equal unlabored respirations, skin warm/dry/pink. Vital Signs: 04:19 BP 153 / 111; Pulse 92; Resp 22; Temp 98(O); Pulse Ox 90% on R/A; Pain 10/10; kl 05:45 BP 155 / 86; Pulse 82; Resp 22; Pulse Ox 91% on R/A; kl 06:41 BP 137 / 71; Pulse 79; Resp 23 S; Pulse Ox 92% on R/A; aa9 07:00 BP 130 / 90; Pulse 97; Resp 16 S; Pulse Ox 92% on 3 lpm NC; Weight 96.16 kg (R); Height kc6 5 ft. 4 in. (162.56 cm) (R); Pain 10/10; 08:00 BP 157 / 85; Pulse 91; Resp 18 S; Pulse Ox 94% on 3 lpm NC; kc6 09:00 BP 151 / 82; Pulse 95; Resp 16 S; Pulse Ox 92% on 3 lpm NC; kc6 10:00 BP 173 / 98; Pulse 95; Resp 12 S; Pulse Ox 96% on 3 lpm NC; kc6 11:00 BP 144 / 88; Pulse 86; Resp 14 S; Pulse Ox 92% on 3 lpm NC; kc6 07:00 Body Mass Index 36.39 (96.16 kg, 162.56 cm) kc6 ED Course: 04:17 Patient arrived in ED. aa9 04:17 Bonilla Jose MD is Attending Physician. kdr 04:21 Triage completed. kl 04:23 EKG completed in triage. Results shown to MD. kl 04:39 XRAY Chest (1 view) In Process Unspecified. EDMS 05:26 CT Abd/Pelvis - IV Contrast Only In Process Unspecified. EDMS 06:17 Troponin High Sensitivity: Draw 2 hours after initial draw Sent. kl 07:06 Manda Samaniego, RN is Primary Nurse. kc6 07:12 Patient has correct armband on for positive identification. Bed in low position. Call kc6 light in reach. Side rails up X 1. 07:12 Arm band placed on. kc6 07:56 Shay Curran MD is Hospitalizing Provider. kdr 08:22 Rodo Donovan is Hospitalizing Provider. jmm 08:43 No provider procedures requiring assistance completed. Patient admitted, IV remains in kc6 place. 08:48 SARS-COV-2 Antigen Rapid Sent. kc6 Administered Medications: 04:31 Drug: morphine 4 mg Route: IVP; Infused Over: 4 mins; Site: right antecubital; aa9 05:31 Follow up: Response: No adverse reaction; Pain is unchanged, physician notified; RASS: kc6 Alert and Calm (0) 04:31 Drug: Zofran (Ondansetron) 4 mg Route: IVP; Site: right antecubital; aa9 05:31 Follow up: Response: No adverse reaction; Nausea unchanged kc6 04:37 Drug: NS 0.9% 500 ml Route: IV; Rate: bolus; Site: right antecubital; aa9 05:37 Follow up: Response: No adverse reaction; IV Status: Completed infusion; IV Intake: kc6 500ml 04:37 Drug: Pepcid (famotidine) 20 mg Route: IVP; Site: right antecubital; aa9 05:37 Follow up: Response: No adverse reaction kc6 06:10 Drug: Demerol (meperidine) 25 mg Route: IVP; Site: right antecubital; aa9 07:10 Follow up: Response: No adverse reaction; Pain is unchanged, physician notified; RASS: kc6 Restless (+1) 06:15 Drug: Reglan (metoCLOPramide) 20 mg Route: IVP; Site: right antecubital; aa9 07:15 Follow up: Response: No adverse reaction; Nausea unchanged kc6 06:35 Drug: GI Cocktail without - (Maalox Suspension 30 ml, Lidocaine Liquid 2 % 15 aa9 ml) Route: PO; 07:31 Follow up: Response: No adverse reaction; Nausea unchanged kc6 07:25 Drug: fentaNYL (PF) 50 mcg Route: IVP; Site: right antecubital; kc6 08:20 Follow up: Response: No adverse reaction; Pain is decreased; RASS: Alert and Calm (0) kc6 07:25 Drug: Phenergan (promethazine) 12.5 mg Route: IVP; Site: right antecubital; kc6 08:20 Follow up: Response: No adverse reaction; Nausea is decreased kc6 Medication: 09:07 VIS not applicable for this client. kc6 Intake: 05:37 IV: 500ml; Total: 500ml. kc6 Outcome: 07:56 Decision to Hospitalize by Provider. kdr 08:43 Condition: stable kc6 11:18 Admitted to Med/surg accompanied by tech, via wheelchair, room 206, with oxygen, with kc6 chart, Report called to BRIGETTE Carroll 11:18 Instructed on the need for admit. 11:43 Patient left the ED. kc6 Signatures: Dispatcher [employer] EDMS Mariely Cano RN RN Bonilla Lazaro MD MD kdr Mickail, Joel, PA PA jmm Avalos, Aylin, RN RN aa9 Manda Samaniego RN RN kc6 Corrections: (The following items were deleted from the chart) 08:41 07:00 BP 130 / 90; Pulse 97bpm; Resp 16bpm; Spontaneous; Pulse Ox 92% 3 lpm Nasal kc6 Cannula; Pain 10; kc6 09:06 08:00 Reassessment: Patient appears in no apparent distress at this time. Patient kc6 and/or family updated on plan of care and expected duration. Pain level reassessed. eyes closed, respirations even and unlabored. appears to be resting comfortably. easily aroused. awake, alert and oriented x4. skin is warm, dry, and pink. Patient states feeling better. Patient states symptoms have improved. kc6
[2022-11-24] MEDS ORDERED: ACETAMINOPHEN 325 MG TABLET PO PRN (09:31)
--- NOTE | 2022-11-24 10:09 | RAD REPORT ---
EXAM DESCRIPTION: CT - Thorax Wo Con - 11/24/2022 9:55 am CLINICAL HISTORY: Cough COMPARISON: Chest For Pe Angio dated 10/07/2021; Chest For Pe Angio dated 02/12/2019; Chest For Pe Ang io dated 07/19/2018; Chest For Pe Angio dated 01/07/2018; Abdomen Pelvis W Contrast dated 11/24/2022 FINDINGS: Chest Wall: No suspicious thyroid nodules or pathologic lymphadenopathy. Lungs: No acute abnormality. Minimal scarring in the right middle lobe. Pleura: No significant effusions or pneumothorax. Mediastinum/manuel: No pathologic lymphadenopathy. Mild to moderate circumferential thickening of the e sophagus. This is worse at the gastroesophageal junction. Pulmonary arteries/Aorta: Limited evaluation without contrast. No aortic aneurysm. Heart: No significant pericardial effusion. Normal heart size. Upper abdomen: Hepatic steatosis. Bones: No acute abnormality. All CT scans are performed using dose optimization technique as appropriate and may include automated exposure control or mA/KV adjustment according to patient size. IMPRESSION: No acute findings in the chest. Diffuse esophageal wall thickening which is most notable at the distal esophagus and is moderate in severity. The findings likely represent esophagitis and a re worsened since 2020. Consider endoscopy for further evaluation.
[2022-11-24] MEDS ORDERED: ONDANSETRON 4 MG/2 ML VIAL IV PRN (10:11)
[2022-11-24] MEDS ORDERED: ASPIRIN 81 MG CHEWABLE TABLET PO ONE (10:13)
[2022-11-24] MEDS ORDERED: HYDROCODONE/APAP 10/325 TAB PO PRN (10:18)
[2022-11-24] MEDS ORDERED: HYDRALAZINE HCL 20 MG/ML VIAL IV PRN (10:22)
--- NOTE | 2022-11-24 10:23 | P.HP ---
Certification for Inpatient Patient admitted to: Inpatient With expected LOS: >2 Midnights Patient will require the following post-hospital care: None Practitioner: I am a practitioner with admitting privileges, knowledge of patient current condition, hospital course, and medical plan of care. Services: Services provided to patient in accordance with Admission requirements found in Title 42 Section 412.3 of the Code of Federal Regulations Patient History Date of Service: 11/24/22 Reason for admission: Chest and Epigastric pain History of Present Illness: Patient took patient is a 52-year-old male with a past medical history significant for COPD, alcohol abuse, nicotine dependence, hypertension who presents with complaint of substernal chest pain that woke him up this morning. Patient rated pain as 10/10 in severity and described pain as sharp in quality. Patient reported associated signs and symptoms of diaphoresis, nausea, vomiting, shortness of breath and epigastric pain. Patient rated epigastric pain as 10/10 and described pain as sharp in quality. Patient denies any other signs and symptoms. Symptoms are aggravated or relieved by nothing. Patient reported that he has not been able to keep any p.o. intake down. Patient decided to present to the hospital due to worsening symptoms. Allergies lisinopril Allergy (Verified 04/26/22 13:11) Shortness of breath BC powder Allergy (Mild, Uncoded 04/26/22 13:10) Hives Lisinopril Allergy (Mild, Uncoded 04/26/22 13:10) Shortness of breath Home Medications: Amlodipine [Norvasc*] 10 mg PO DAILY 01/03/21 Metoprolol Tartrate [Lopressor] 50 mg PO BID #60 tab 04/28/22 chlordiazePOXIDE HCl [Chlordiazepoxide HCl] 10 mg PO TID #60 capsule 04/28/22 predniSONE [Prednisone*] 10 mg PO DAILY #30 tab 04/28/22 - Past Medical/Surgical History Diabetic: No -: Hypertension -: COPD on chronic steroids -: Tobacco abuse -: Alcohol abuse -: GERD -: Obesity -: 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 - Family History Mother -: Diabetes, Cancer Notes: colon cancer Father -: Lung disease Notes: COPD - Social History Smoking Status: Current every day smoker Counseled patient to stop smoking for: less than 10 minutes Smoking therapy provided: Yes Patient receptive to therapy: Yes Alcohol use: Yes CD- Drugs: No Caffeine use: Yes Place of Residence: Home Review of Systems General: Sweats Eyes: Unremarkable ENT: Unremarkable Respiratory: Shortness of Breath Cardiovascular: Chest Pain Gastrointestinal: Nausea, Vomiting, Abdominal Pain Genitourinary: Unremarkable Musculoskeletal: Unremarkable Integumentary: Unremarkable Neurological: Unremarkable Lymphatics: Unremarkable Physical Examination - Physical Exam General: Alert, Oriented x3, Cooperative, Mild distress HEENT: Atraumatic, PERRLA, Mucous membr. moist/pink, EOMI, Sclerae nonicteric Neck: Supple, 2+ carotid pulse no bruit, No LAD, Without JVD or thyroid abnormality Respiratory: Diminished, Expiratory wheezes, Inspiratory wheezes Cardiovascular: No edema, Regular rate/rhythm, Normal S1 S2 Capillary refill: <2 Seconds Gastrointestinal: Hypoactive, Tenderness Musculoskeletal: No clubbing, No swelling, No contractures, No erythema Integumentary: No rashes, No breakdown, No significant lesion, No erythema Neurological: Normal speech, Normal tone, Normal affect Lymphatics: No axilla or inguinal lymphadenopathy - Studies Laboratory Data (last 24 hrs) 11/24/22 04:27: Lipase Cancelled 11/24/22 04:15: WBC 11.70 H, Hgb 16.3, Hct 48.2, Plt Count 293 11/24/22 04:15: Sodium 144, Potassium 3.9, BUN 5 L, Creatinine 0.71, Glucose 109 H, Lipase 128 Assessment and Plan - Plan --Chest pain. To rule out ACS. Will trend troponin levels--so far negative. T elemetry to monitor for any significant arrhythmia. Cardiology consulted. Echocardiogram pending to assess cardiac structures and functions. We will await further recommendation from card puncher. --Acute on chronic COPD exacerbation. Continue steroids, neb treatment with albuterol\Atrovent and O2 therapy. --Alcohol abuse. Patient denies withdrawal symptoms when he does not drink. [facility] protocol. --Hypertension. Poorly controlled. Continue home medications and hydralazine as needed. --Esophagitis. Noted on CT imaging. Patient placed on Protonix. We will consult GI, if GI service available. Continue supportive care. --Nausea and vomiting. Antiemetics on board. Continue supportive care. --Nicotine dependence. Patient counseled on tobacco cessation placed and placed nicotine patch. --Mild leukocytosis. Blood cultures pending. We will continue to monitor WBC levels. --DVT prophylaxis with heparin subQ. Discharge Plan: Home Plan to discharge in: Greater than 2 days - Advance Directives Does patient have a Living Will: No Does patient have a Durable POA for Healthcare: No - Code Status/Comfort Care Code Status Assessed: Yes Physician Review: Patient Assessed, Agree with Above Assessment and Plan Critical Care: No
[2022-11-24 10:32] LABS: SARS-CoV-2 Antigen Rapid Res Negative (Negative)
[2022-11-24] MEDS ORDERED: ASPIRIN 81 MG CHEWABLE TABLET ONE (10:40)
[2022-11-24] MEDS ORDERED: HYDROCODONE/APAP 10/325 TAB ONE (10:41)
[2022-11-24] MEDS ORDERED: SODIUM CHLORIDE 0.9% 10ML INJ IV PRN (10:48)
[2022-11-24 11:07] LABS: Magnesium 2.1 mg/dL (1.6-2.4); Phosphorus 3.3 mg/dL (2.5-4.9); Thyroid Stimulating Hormone 3.6 uIU/mL (0.358-3.740)
[2022-11-24] MEDS ORDERED: LORazepam 2 MG/ML VIAL IV PRN (11:09)
--- NOTE | 2022-11-24 11:26 | RAD REPORT ---
EXAM DESCRIPTION: CT - Abdomen Pelvis W Contrast - 11/24/2022 6:58 am CLINICAL HISTORY: The patient is 52 years old and is Male; Abdominal pain, acute, nonlocalized TECHNIQUE: Axial computed tomography images of the abdomen and pelvis with intravenous contrast. S agittal and coronal reformatted images were created and reviewed. This CT exam was performed using one or more of the following dose reduction techniques: automated exposure control, adjustment of t he mA and/or kV according to patient size, and/or use of iterative reconstruction technique. COMPARISON: CT abdomen and pelvis with contrast April 26, 2022. FINDINGS: Lung bases: Unremarkable. No mass. No consolidation. Mediastinum: Debris in and distention of the distal esophagus. ABDOMEN: Liver: Unremarkable. No mass. Gallbladder and bile ducts: There may be a tiny gallstone in the gallbladder neck. No ductal dilation. Pancreas: Unremarkable. No mass. No ductal dilation. Spleen: Unremarkable. No splenomegaly. Adrenals: Unremarkable. No mass. Kidneys and ureters: Unremarkable. No solid mass. No hydronephrosis. Stomach and bowel: Scattered colonic diverticula. No obstruction. No mucosal thickening. PELVIS: Appendix: Appendix is normal. Bladder: Unremarkable.. Reproductive: Unremarkable as visualized. ABDOMEN and PELVIS: Intraperitoneal space: Unremarkable. No free air. No significant fluid collection. Bones/joints: No acute fracture. No dislocation. Soft tissues: Unremarkable. Vasculature: Scattered atherosclerotic vascular calcifications. No abdominal aortic aneurysm. Lymph nodes: Unremarkable. No enlarged lymph nodes. IMPRESSION: No acute finding in the abdomen/pelvis. Electronically signed by: Sunil Torres MD 11/24/2022 5:42 AM OFFSHORE DIVER Due to temporary technical issues with the PACS/Fluency reporting system, reports are being signed by the in house radiologists without review as a courtesy to insure prompt reporting. The interpreting radiologist is fully responsible for the content of the report.
[2022-11-24 11:56] LABS: Troponin High Sensitivity 8.7 pg/mL (<58.9)
[2022-11-24 12:21] VITALS: BMI 31.1
--- NOTE | 2022-11-24 13:16 | RAD REPORT ---
EXAM DESCRIPTION: RAD - Chest Single View - 11/24/2022 4:37 am CLINICAL HISTORY: Chest Pain COMPARISON: Chest 1 View AP 03/22/2022 TECHNIQUE: Chest 1 View AP FINDINGS: Heart size and pulmonary vessels within normal limits. Lungs clear without evidence of consolidation, mass, or significant pulmonary edema. No significant pleural effusion or pneumothorax. Bones unremarkable. IMPRESSION: Unremarkable chest radiograph. Electronically signed by: Braulio Wolfe MD 11/24/2022 5:07 AM EMPLOYEE ADVISER Due to temporary technical issues with the PACS/Fluency reporting system, reports are being signed by the in house radiologists without review as a courtesy to insure prompt reporting. The interpreting radiologist is fully responsible for the content of the report.
[2022-11-24] MEDS ORDERED: chlordiazePOXIDE HCl 5 MG CAP PO SCH (14:00)
[2022-11-24] MEDS ORDERED: INFLUENZA VACCINE (for 6+ mo) 0.5 ML DOSE IMVAC ONE (14:00)
[2022-11-24] MEDS ORDERED: ALBUTEROL 2.5 MG/3 ML NEB SOL NEB SCH (14:00)
[2022-11-24] MEDS ORDERED: PNEUMOCOCCAL VACCINE 0.5 ML IMVAC ONE (14:00)
[2022-11-24] MEDS ORDERED: IPRATROPIUM BROM 0.5MG/2.5ML NEB SCH (14:00)
[2022-11-24 16:01] VITALS: O2SAT 96
[2022-11-24 16:20] VITALS: BP 136/86; TEMP 97.9
[2022-11-24] MEDS ORDERED: METHYLPREDNISOLONE 40 MG INJ IV SCH (17:00)
--- NOTE | 2022-11-24 17:11 | CON ---
Date of Consultation: 11/24/2022 Reason For Consultation: Epigastric pain and chest pain. History Of Present Illness: A 52-year-old male with history of COPD, active alcohol abuse on daily b asis, hypertension, active smoker, presented with substernal chest pain, woke him up this morning, se verity was 10/10, sharp, no radiation, not related to exertion. Had some nausea and vomiting as well and as well he has been having epigastric pain that is 10/10 that radiates to the back. Past Medical History: As outlined above in the HPI, hypertension, COPD, alcohol abuse. Medications: Refer to reconciliation sheet for detailed list. Allergies: LISINOPRIL. Family History: No premature coronary artery disease or cancer. Social History: He is an active smoker, about a pack per day and drinks alcohol on a regular basis. Review of Systems: All systems reviewed and they were negative except what mentioned in HPI. Physical Examination: Vital Signs: Reviewed. Head and Neck: Pupils are equal, reactive to light. Intact eye movements. No JVD. No cervical lym phadenopathy. Neck is supple. Thyroid is not enlarged. Lungs: Clear to auscultation bilaterally. No rhonchi, wheezing, or crackles. No accessory muscle u se. Heart: Regular rate and rhythm. No extra sounds. Abdomen: Soft. Bowel sounds positive. Tender in the epigastric area. No rigidity or rebound. Extremities: No edema, clubbing, or cyanosis. Intact pulses. Skin: No rash. Neurologic: Alert, awake, oriented x3. No acute focal deficits appreciated. Investigations: BUN is 5, creatinine 0.71. Troponins x3 are negative. Lipase is 128. CT scan abdo men and pelvis showed no acute findings. Assessment And Recommendations: 1.Chest pain. It is very atypical pain at rest. Cardiac enzymes are negative. The patient is a he radha drinker, so this could be gastritis, peptic ulcer disease or chronic pancreatitis. His ejection fraction is normal on echo and normal wall motion. At this point, I recommend further GI evaluation for this presenting complaint and plan for outpatient cardiac stress test. 2.Active smoker. The patient was counseled against smoking and against alcohol. SR/MODL Voice ID: [id number] Report ID: [id number]
--- NOTE | 2022-11-24 17:31 | EKG ---
Test Date: 2022-11-24 Test Time: 04:16:39 Public Health Nutritionist: SOCORRO MEASUREMENT RESULTS: Intervals: Rate: 112 LA: 134 QRSD: 96 QT: 364 QTc: 496 [place]: P: 63 LA: 134 QRS: 75 T: 60 INTERPRETIVE STATEMENTS: Sinus tachycardia Incomplete right bundle branch block Borderline ECG Compared to ECG 11/24/2022 04:13:08 Incomplete right bundle-branch block now present Right-axis deviation no longer present ST (T wave) deviation no longer present Electronically Signed On 11-24-22 17:30:37 CAR HOSTLER by Rosalino Albert
--- NOTE | 2022-11-24 18:49 | P.DS ---
Admission Date: 11/24/22 Discharge Date: 11/24/22 Disposition: ROUTINE DISCHARGE Discharge Condition: FAIR Reason for Admission: Chest and Epigastric pain - Problems (1) Chest pain Status: Acute (2) Epigastric pain Status: Acute (3) Alcohol abuse Onset Date: 11/15/18 Status: Acute (4) COPD exacerbation Onset Date: 09/07/18 Status: Acute (5) HTN (hypertension) Onset Date: 02/11/18 Status: Chronic (6) Esophagitis Status: Acute Brief History of Present Illness: Patient is a 52-year-old male with a past medical history significant for COPD, alcohol abuse, nicotine dependence, hypertension who presented with complaint of substernal chest pain that woke him up this morning. Patient rated pain as 10/10 in severity and described pain as sharp in quality. Patient reported associated signs and symptoms of diaphoresis, nausea, vomiting, shortness of breath and epigastric pain. Patient rated epigastric pain as 10/10 and described pain as sharp in quality. Noted patient abuses alcohol, last alcoholic drink was yesterday. Symptoms are aggravated or relieved by nothing. Patient reported that he has not been able to keep any p.o. intake down and has been vomiting. Initial troponin negative. Chest CT demonstrated diffuse esophageal wall thickening at the distal portion suggestive of severe esophagitis. No acute findings in the chest. Patient was hospitalized for further management. Hospital Course: Patient admitted to the medical floor. Troponin trended negative. He was seen and evaluated by cardiology and his chest pain considered atypical. Dr. Albert repeat recommended follow-up as outpatient for stress test. Noted esophageal thickening suggesting severe esophagitis that need to be evaluated given his history of chronic alcoholism. Patient is informed to follow-up with GI Dr. Powers for arrangement for endoscopy. He was initially on 3 L of oxygen by nasal cannula. COPD was treated with bronchodilators and given IV steroid. His respiratory condition improved rapidly and patient tolerated room air with ambulation. ACS ruled out, patient chest pain likely due to esophagitis. He is at risk of alcohol withdrawal. He is discharged to follow with Dr. Dodd as outpatient for arrangement for an endoscopy, and Dr. Albert for outpatient stress test. Vital Signs/Physical Exam: Temp Pulse Resp BP Pulse Ox 97.9 F 76 16 136/86 92 11/24/22 16:00 11/24/22 16:00 11/24/22 16:00 11/24/22 16:00 11/24/22 16:00 General: Alert, In no apparent distress, Oriented x3 HEENT: Mucous membr. moist/pink Neck: JVD not distended Respiratory: Clear to auscultation bilaterally, Normal air movement Cardiovascular: No edema, Regular rate/rhythm, Normal S1 S2 Gastrointestinal: Normal bowel sounds, Soft and benign, Non-distended, No tenderness Musculoskeletal: No swelling Integumentary: No rashes, No cyanosis Neurological: Normal gait, Normal strength at 5/5 x4 extr, Cranial nerves 3-12 intact, Other (Hand tremors) Laboratory Data at Discharge: WBC 11.70 K/uL (4.3-10.9) H 11/24/22 04:15 Hgb 16.3 g/dL (13.6-17.9) 11/24/22 04:15 Hct 48.2 % (39.6-49.0) 11/24/22 04:15 Plt Count 293 K/uL (152-406) 11/24/22 04:15 Sodium 144 mmol/L (136-145) 11/24/22 04:15 Potassium 3.9 mmol/L (3.5-5.1) 11/24/22 04:15 BUN 5 mg/dL (7-18) L 11/24/22 04:15 Creatinine 0.71 mg/dL (0.70-1.30) 11/24/22 04:15 Glucose 109 mg/dL (74-106) H 11/24/22 04:15 Phosphorus 3.3 mg/dL (2.5-4.9) 11/24/22 10:32 Magnesium 2.1 mg/dL (1.6-2.4) 11/24/22 10:32 Lipase Cancelled 11/24/22 04:27 Home Medications: Amlodipine [Norvasc*] 10 mg PO DAILY 01/03/21 Metoprolol Tartrate [Lopressor*] 50 mg PO BID #60 tab 04/28/22 predniSONE [Prednisone*] 10 mg PO DAILY #30 tab 04/28/22 Aspirin Chewable [Aspirin Chewable*] 81 mg PO DAILY #30 tab.chew 11/24/22 New Medications: Aspirin Chewable [Aspirin Chewable*] 81 mg PO DAILY #30 tab.chew Diet: [facility] Activity: Fall precautions Followup: Rosalino Albert MD [ACTIVE - CAN ADMIT] - 1 Week (Call to schedule appointment.) John Powers MD [ACTIVE - CAN ADMIT] - 1-2 Weeks (Esophagitis) Time spent managing pt's care (in minutes): 33
[2022-11-24] MEDS ORDERED: METOPROLOL TAR 50 MG TAB PO SCH (21:00)
[2022-11-24] MEDS ORDERED: PANTOPRAZOLE 40 MG INJ IVP SCH (21:00)
--- NOTE | 2022-11-25 06:45 | ECHO ---
HEIGHT: 5 ft 4 in WEIGHT: 181 lb 1.6 oz DATE OF STUDY: 11/24/[address]: Reece Hoyt 2-DIMENSIONAL: YES M.MODE: YES DOPPLER: YES COLOR FLOW: YES TDS: PORTABLE: YES DEFINITY: BUBBLE STUDY: DIAGNOSIS: CHEST PAIN CARDIAC HISTORY: CATHERIZATION: NO SURGERY: NO PROSTHETIC VALVE: NO PACEMAKER: NO MEASUREMENTS (cm) DIASTOLIC (NORMALS) SYSTOLIC (NORMALS) IVSd 1.0 (0.6-1.2) LA Diam 2.6 (1.9-4.0) LVEF 63% LVIDd 4.1 (3.5-5.7) LVIDs 2.7 (2.0-3.5) %FS 33% LVPWd 1.1 (0.6-1.2) Ao Diam 2.4 (2.0-3.7) 2 DIMENSIONAL ASSESSMENT: RIGHT ATRIUM: NORMAL LEFT ATRIUM: NORMAL RIGHT VENTRICLE: NORMAL LEFT VENTRICLE: NORMAL TRICUSPID VALVE: NORMAL MITRAL VALVE: NORMAL PULMONIC VALVE: NORMAL AORTIC VALVE: NORMAL PERICARDIAL EFFUSION: NONE AORTIC ROOT: NORMAL LEFT VENTRICULAR WALL MOTION: NORMAL DOPPLER/COLOR FLOW: NORMAL COMMENTS: 1. NORMAL LEFT VENTRICULAR EJECTION FRACTION 60-65% 2. NORMAL WALL MOTION 3. NORMAL DIASTOLIC FUNCTION TECHNOLOGIST: DANELLE PICKARD
[2022-11-25] MEDS ORDERED: ASPIRIN 81 MG CHEWABLE TABLET PO SCH (09:00)
[2022-11-25] MEDS ORDERED: NICOTINE 21 MG/PAT TD SCH (09:00)
[2022-11-25] MEDS ORDERED: AMLODIPINE 10 MG TAB PO SCH (09:00)
== END 2022-11-24 18:51 | disposition home or self-care (01) | DRG 392 ==
LOC: ER 04:11 → ERHOLD 09:28 → 2ND 11:27
PROVIDERS: ADMIT Internal Medicine; ATTEND Internal Medicine
DX: K21.00 Gastro-esophageal reflux disease with esophagitis, without bleeding (principal); J44.1 Chronic obstructive pulmonary disease with (acute) exacerbation; I10 Essential (primary) hypertension; F10.10 Alcohol abuse, uncomplicated; D72.829 Elevated white blood cell count, unspecified; F17.210 Nicotine dependence, cigarettes, uncomplicated; Z88.8 Allergy status to other drugs, medicaments and biological substances; Z79.52 Long term (current) use of systemic steroids; Z79.82 Long term (current) use of aspirin; Z79.899 Other long term (current) drug therapy; Z89.022 Acquired absence of left finger(s); Z20.822 Contact with and (suspected) exposure to COVID-19
CPT/HCPCS: 36415; 71045; 71250; 74177; 80048; 82550; 83690; 83735; 83880; 84100; 84439; 84443; 84484; 85025; 87040; 87811; 93005; 93306; 94640; 96361; 96374; 96375; 99285; G0480; J2175; J2405; J2550; J2765; J2920; J3010; J7040; J7613; J7644; Q9967

== ENCOUNTER 2023-01-08 22:23 | Observation (INO) | payer OTHER, SELFPAY ==
--- OUTSIDE RECORDS SUMMARY | 2023-01-08 22:27 | XMS REPORT | Continuity of Care Document ---
:1970 Author Organization [facility] t Address [address] [place] [address] Care Team Providers Name Role Phone LOPEZGIRISH [...] y of on of on of 00:00: [place] chronic chronic 00 Medical obstructiv obstructiv Br anch e e pulmonary pulmonary disease disease (COPD) (COPD) Obesity Obesity Disease Active 2018 Univers (BMI (BMI 5-16 ity of 30-39.9) 30-39.9) 00:00: [place] [address] Medical Branch Allergies, Adverse Reactions, Alerts Allergy Allergy Status Severity Reaction(s) Onset Inactive Treating Comm ents Source Name Type Date Date Clinician Lisinopr Propensi Active Anaphylaxis 2018-0 U nivers il ty to 5-16 ity of adverse 00:00: [place] reaction 00 Medical s Branch LISINOPR DRUG Active Anaphylaxis Uni vers [place] INGREDI 5-16 ity of 00:00: [address] Social History Social Habit Start Date Stop Date Quantity Comments Source History of Smokes tobacco University of tobacco use daily [facility] Exposure to 2022-10-04 2022-10-14 Not sure [facility] SARS-CoV-2 00:00:00 10:25:00 [facility] [place] Alcohol intake 2022-03-09 2022-03-09 4.29 /d University 00:00:00 00:00:00 [facility] Tobacco use and 2018-03-24 2018-03-24 User of smokeless Un iversity of exposure 00:00:00 00:00:00 tobacco [facility] Tobacco Comment 2018-03-24 2018-03-24 trying to quit Unive rsity of 00:00:00 00:00:00 [facility] Sex [birth year] At [birth year] Universit y of 00:00:00 00:00:00 [facility] Smoking Status Start Date Stop Date Source Smokes tobacco daily 2018-03-24 00:00:00 Univers ity of [facility] Medications Ordered Filled Start Stop Current Ordering Indication Dosage Frequency Signature Comments Components Source Medication Medication Date Date Medication? Clinician (SIG) Name Name iopamidol 2021-11- No [id number] 70mL 70 mL, U nivers (ISOVUE 12-15- Intravenou ity o f 370-500 mL) 18:30: 18:30 s, ONCE, 1 [place] injection 00 :00 dose, On Medica l 70 mL [facility] 10/14/22 at 1230, Routine methylpredn 2021-11 Yes 125mg 125 mg, Un odalys isolone sod 12-15 Intravenou it y of succ 18:00: s, Q6H, [place] (SOLU-MEDRO 00 First dose Me dical L) on [facility] injection 10/14/22 at 125 mg 1200, Until Discontinu ed, Routine furosemide 2021-11- No 40mg 40 mg, IV U nivers (LASIX) 12-15 12- Push, ity of injection 17:45: 16:39 ONCE, 1 [place] 40 [place] 00 :00 dose, On Medical [facility] 10/14/22 at 1145, LAURYN ipratropium 2021-11- No [...] 10/14/22 at 1045, Routine levoFLOXaci 2021-11 Yes [id number] 750mg Take 1 Univers n 750 mg [...] of succ 11:45: 10:43 s, ONCE, 1 [place] (SOLU-MEDRO 00 :00 dose, On Medi keo [...] 0530, solution 3 Routine mL albuterol Yes [id number] 2{puff} Inhale 2 Univers 90 4-14 Puffs ity of mcg/actuati 00:00: every 4 [place] as on inhaler 00 (four) Medical hours as Branch needed for Wheezing or Shortness of Breath. albuterol Yes [id number] 2.5mg Inhale 3 Univers 2.5 mg /3 4-14 mL every 4 ity of mL (0.083 00:00: (four) [place] %) 00 hours. May Medical nebulizer also Branch solution nebulize one extra every 6 hours. budesonide- Yes [id number] 2{puff} Inhale 2 Univers formoteroL 4-14 Puffs 2 ity of 160-4.5 00:00: (two) [place] mcg/actuati 00 times Medical on inhaler daily. Branch triamterene Yes [id number] 1{tbl} Take 1 Univers -hydrochlor 4-14 tablet by ity of othiazid 00:00: mouth [place] 37.5-25 mg 00 daily. Medical tablet Branch chlordiazeP Yes [id number] 25mg Take 1 Univers OXIDE 25 mg 4-14 capsule by it y of capsule 00:00: mouth [place] 00 every 6 Medical (six) Branch hours as needed for Anxiety, Agitation, Heart Rate => 100 or Detox. predniSONE Yes [id number] TAKE ONE Univers 10 mg 4-14 TABLET BY ity of tablet 00:00: MOUTH [place] 00 DAILY Medical Branch albuterol Yes [id number] 2{puff} Inhale 2 Univers 90 4-14 Puffs ity of mcg/actuati 00:00: every 4 [place] as on inhaler 00 (four) Medical hours as Branch needed for Wheezing or Shortness of Breath. albuterol Yes [id number] 2.5mg Inhale 3 Univers 2.5 mg /3 4-14 mL every 4 ity of mL (0.083 00:00: (four) [place] %) 00 hours. May Medical nebulizer also Branch solution nebulize one extra every 6 hours. budesonide- Yes [id number] 2{puff} Inhale 2 Univers formoteroL 4-14 Puffs 2 ity of 160-4.5 00:00: (two) [place] mcg/actuati 00 times Medical on inhaler daily. Branch triamterene Yes [id number] 1{tbl} Take 1 Univers -hydrochlor 4-14 tablet by ity of othiazid 00:00: mouth [place] 37.5-25 mg 00 daily. Medical tablet Branch chlordiazeP Yes [id number] 25mg Take 1 Univers OXIDE 25 mg 4-14 capsule by it y of capsule 00:00: mouth [place] 00 every 6 Medical (six) Branch hours as needed for Anxiety, Agitation, Heart Rate => 100 or Detox. predniSONE Yes [id number] TAKE ONE Univers 10 mg 4-14 TABLET BY ity of tablet 00:00: MOUTH [place] 00 DAILY Medical Branch albuterol Yes [id number] 2{puff} Inhale 2 Univers 90 4-14 Puffs ity of mcg/actuati 00:00: every 4 [place] as on inhaler 00 (four) Medical hours as Branch needed for Wheezing or Shortness of Breath. albuterol Yes [id number] 2.5mg Inhale 3 Univers 2.5 mg /3 4-14 mL every 4 ity of mL (0.083 00:00: (four) [place] %) 00 hours. May Medical nebulizer also Branch solution nebulize one extra every 6 hours. budesonide- Yes [id number] 2{puff} Inhale 2 Univers formoteroL 4-14 Puffs 2 ity of 160-4.5 00:00: (two) [place] mcg/actuati 00 times Medical on inhaler daily. Branch triamterene Yes [id number] 1{tbl} Take 1 Univers -hydrochlor 4-14 tablet by ity of othiazid 00:00: mouth [place] 37.5-25 mg 00 daily. Medical tablet Branch chlordiazeP Yes [id number] 25mg Take 1 Univers OXIDE 25 mg 4-14 capsule by it y of capsule 00:00: mouth [place] 00 every 6 Medical (six) Branch hours as needed for Anxiety, Agitation, Heart Rate => 100 or Detox. predniSONE Yes [id number] TAKE ONE Univers 10 mg 4-14 TABLET [...] by ity of capsule 16:32: mouth 2 [place] 14 (two) Medical times [place] daily as needed ([facility] pain). foLIC acid Yes 1mg Take 1 mg Un odalys 1 mg tablet 5-18 by mouth ity of 16:32: daily. [place] 14 Medical Branch triamterene 2017-0 Yes 1{capsu Take 1 U nivers -hydrochlor 5-18 le} capsule by it y of othiazide 16:32: mouth [place] 37.5-25 mg 14 every Medical per capsule morning. Bran ch amLODIPine 2018-0 Yes 10mg Take 10 mg U nivers 10 mg 5-18 by mouth ity of tablet 16:32: at [place] 14 bedtime. Medical Branch gabapentin 2018-0 Yes 100mg Take 100 Un odalys 100 mg 5-18 mg by ity of capsule 16:32: mouth 2 [place] 14 (two) Medical times Branch daily as needed ([facility] pain). foLIC acid 2018-0 Yes 1mg Take 1 mg Un odalys 1 mg tablet 5-18 by mouth ity of 16:32: daily. [place] [address] Medical Branch triamterene 0 Yes 1{capsu Take 1 U nivers -hydrochlor 5-18 le} capsule by it y of othiazide 16:32: mouth [place] 37.5-25 mg 14 every Medical per capsule morning. Bran ch amLODIPine 2018-0 Yes 10mg Take 10 mg U nivers 10 mg 5-18 by mouth ity of tablet 16:32: at [place] [address] bedtime. Medical Branch gabapentin 2018-0 Yes 100mg Take 100 Un odalys 100 mg 5-18 mg by ity of capsule 16:32: mouth 2 [place] 14 (two) Medical times [place] daily as needed ([facility] pain). foLIC acid 2018-0 Yes 1mg Take 1 mg Un odalys 1 mg tablet 5-18 by mouth ity of 16:32: daily. [address] triamterene 2017-0 Yes 1{capsu Take 1 U nivers -hydrochlor 5-18 le} capsule by it y of othiazide 16:32: mouth [place] 37.5-25 mg 14 every Medical per capsule morning. Bran ch amLODIPine 2017-0 Yes 10mg Take 10 mg U nivers 10 mg 5-18 by mouth ity of tablet 16:32: at [place] 14 bedtime. Medical Branch budesonide- 2017-0 Yes [...] Immunizations Ordered Filled Immunization Date Status Comments [facility] e Immunization Name Name SARS-COV-2 COVID-19 2021-02-03 Completed Unive rsity of PFIZER VACCINE 00:00:00 [facility] SARS-COV-2 COVID-19 2021-02-03 Completed Unive rsity of PFIZER VACCINE 00:00:00 [facility] SARS-COV-2 COVID-19 2021-02-03 Completed Unive rsity of PFIZER VACCINE 00:00:00 [facility] SARS-COV-2 COVID-19 2021-01-13 Completed Unive rsity of PFIZER VACCINE 00:00:00 [facility] SARS-COV-2 COVID-19 2021-01-13 Completed Unive rsity of PFIZER VACCINE 00:00:00 [facility] SARS-COV-2 COVID-19 2021-01-13 Completed Unive rsity of PFIZER VACCINE 00:00:00 [facility] Pneumococcal 2018-03-26 Completed University o f Polysaccharide, 00:00:00 [facility] ical PPSV23 (PNEUMOVAX) [place] Influenza Virus 2018-03-26 Completed Universit y of Vaccine Quad IM 3+ 00:00:00 [facility] Pneumococcal 2018-03-26 Completed University o f Polysaccharide, 00:00:00 [place] Med ical PPSV23 (PNEUMOVAX) [place] Influenza Virus 2018-03-26 Completed Universit y of Vaccine Quad IM 3+ 00:00:00 [facility] Pneumococcal 2018-03-26 Completed University o f Polysaccharide, 00:00:00 [place] Med ical PPSV23 (PNEUMOVAX) [place] Influenza Virus 2018-03-26 Completed Universit y of Vaccine Quad IM 3+ 00:00:00 [facility] Vital Signs Vital Name Observation Time Observation Value Comments Source Systolic blood 2022-10-14 19:43:00 111 mm[Hg] Univer sity of pressure [facility] Diastolic blood 2022-10-14 19:43:00 74 mm[Hg] Unive rsity of pressure [place] [facility] Heart rate 2022-10-14 19:43:00 98 /min Universi ty of [place] [facility] Body temperature 2022-10-14 19:43:00 36.39 Debbie Univ ersity of [place] [facility] Respiratory rate 2022-10-14 19:43:00 22 /min Univ ersity of [place] [facility] Oxygen saturation in 2022-10-14 19:43:00 94 /min University of Arterial blood by [facility] keo Pulse oximetry Branch Body height 2022-10-14 16:13:00 162.6 cm Universi ty of [place] [facility] Body weight 2022-10-14 16:13:00 81.647 kg Universi ty of [place] [facility] BMI 2022-10-14 16:13:00 30.90 kg/m2 Universi ty of [place] [facility] Systolic blood 2022-03-12 10:13:00 119 mm[Hg] Univer sity of pressure [place] [facility] Diastolic blood 2022-03-12 10:13:00 75 mm[Hg] Unive rsity of pressure [place] [facility] Heart rate 2022-03-12 10:13:00 105 /min Universi ty of [place] [facility] Body temperature 2022-03-12 10:13:00 37.28 Debbie Univ ersity of [place] [facility] Respiratory rate 2022-03-12 10:13:00 19 /min Univ ersity of [place] [facility] Body height 2022-03-12 10:13:00 162.6 cm Universi ty [facility] [place] [facility] Body weight 2022-03-12 10:13:00 99.791 kg Universi ty of [place] [facility] BMI 2022-03-12 10:13:00 37.76 kg/m2 Universi ty of [place] [facility] Oxygen saturation in 2022-03-12 10:13:00 96 /min University of Arterial blood by [facility] keo Pulse oximetry Branch Systolic blood 2022-02-20 11:57:00 155 mm[Hg] Univer sity of pressure [place] [facility] Diastolic blood 2022-02-20 11:57:00 88 mm[Hg] Unive rsity of pressure [place] [facility] Heart rate 2022-02-20 11:57:00 105 /min Universi ty of [place] [facility] Respiratory rate 2022-02-20 11:57:00 18 /min [facility] Oxygen saturation in 2022-02-20 11:57:00 100 /min [facility] Arterial blood by [facility] Pulse oximetry Branch Body temperature 2022-02-20 09:25:00 37 Debbie [facility] Body height 2022-02-20 09:25:00 162.6 cm [facility] Body weight 2022-02-20 09:25:00 96.163 kg [facility] BMI 2022-02-20 09:25:00 36.39 kg/m2 [facility] Procedures Procedure Date / Time Performing Clinician Source Performed CT ABDOMEN PELVIS W 2022-10-14 17:33:00 Melinda Maciel [facility] CONTRAST [facility] XR CHEST 1 VW 2022-10-14 17:10:37 Singer [facility] TROPONIN I 2022-10-14 16:37:00 Singer [facility] COMP. METABOLIC PANEL 2022-10-14 16:37:00 Melinda Maciel [facility] ([id number]) [facility] CBC WITH DIFF 2022-10-14 16:37:00 Singer [facility] PROTHROMBIN TIME / INR 2022-10-14 16:37:00 Melinda Maciel [facility] URINALYSIS 2022-10-14 16:37:00 Singer [facility] N-TERMINAL PRO-BNP 2022-10-14 16:37:00 Melinda Maciel [facility] CONSENT/REFUSAL FOR 2022-10-14 15:56:36 Doctor Unassigned, No Un i[facility] [place] DIAGNOSIS AND TREATMENT Name Medical Branch CONSENT/REFUSAL FOR 2022-03-12 10:03:12 [facility], [facility] Medical Branch XR CHEST 1 VW 2022-02-20 09:59:00 Christy Shaw [facility] LIPASE 2022-02-20 09:30:00 Christy Shaw [facility] TROPONIN I 2022-02-20 09:30:00 Christy Shaw [facility] COMP. METABOLIC PANEL 2022-02-20 09:30:00 Christy Shaw [facility] ([id number]) [facility] CBC WITH DIFF 2022-02-20 09:30:00 Christy Shaw [facility] N-TERMINAL PRO-BNP 2022-02-20 09:30:00 Christy Shaw [facility] NOTICE OF PRIVACY 2022-02-20 09:15:02 Doctor Unassigned, No Univ [facility] PRACTICES Name [facility] Branch CONSENT/REFUSAL FOR 2022-02-20 09:14:47 Doctor Unassigned, No [facility] DIAGNOSIS AND TREATMENT Name [facility] Encounters Start End Encounter Admission Attending Care Care Encounter Source Date/Time Date/Time Type Type Clinicians Facility Department ID 2022-10-14 2022-10-14 Emergency [facility] [id number] Univers 10:07:00 14:39:00 Melinda SMITH [id number] i ty [facility] [id number] [facility] [id number] [address] 2022-10-14 2022-10-14 Emergency [facility] [id number] Univers 10:07:00 14:39:00 MELINDA radha [facility] 2022-03-12 2022-03-12 Emergency [id number] Univers 05:15:00 06:41:00 CHRISTY garcia [facility] 2022-03-12 2022-03-12 [facility] [id number] Univers 05:15:00 06:41:00 Christy SMITH [id number] ity [facility] [id number] [facility] [id number] [address] 2022-02-20 2022-02-20 Emergency [facility] [id number] Univers 04:17:00 07:16:00 [facility] 2022-02-20 2022-02-20 [facility] [id number] Univers 04:17:00 07:16:00 Christy SMITH [id number] [facility] [id number] [facility] [id number] [facility] 084 Branch 2021-02-03 2021-02-03 Outpatient R PINEDA, [facility] [id number] Univers 11:10:00 11:10:00 [facility] 2021-01-13 2021-01-13 Outpatient [facility] [id number] Univers 11:20:00 11:20:00 [facility] 2020-11-10 2020-11-10 [facility] [id number] Univers 08:20:00 08:20:00 KARLEY [facility] Results Test Description Test Time Test Comments Results Result Comments Source TROPONIN I 2022-02-20 10:16:22 Test Item Value Reference Range Interpretation Comme nts TROPONIN I (test code = 0.007 ng/mL See_Comment [Au tomated message] The [id number]) system which ge nerated this result tra [...] biotin. Lab Interpretation Normal (test code = 49536-2) [id number] 10:13:01 Test Item Value Reference Range Interpretation Comments NT-proBNP (test code 52 pg/mL See_Comment [Autom ated = 3231342463) message] The system which generated this result transmitted reference range : <=125. The reference range was not used to interpret this result as normal/abnormal . LOUISE (test code = LOUISE) Biotin has been reported to cause a negative bias, interpret results relative to patient's use of biotin. Lab Interpretation Normal (test code = 17651-4) [facility]. METABOLIC PANEL (80008)2022-02-20 10:04:02 Test Item Value Reference Range Interpretation Comments NA (test code = 137 mmol/L 135-145 8940376275) K (test code = 3.6 mmol/L 3.5-5.0 2504230428) CL (test code = 99 mmol/L 98-108 7698390632) CO2 TOTAL (test code = 25 mmol/L 23-31 1699934937) AGAP (test code = 2-16 8140330030) BUN (test code = 6 mg/dL 7-23 L 4036562912) GLUCOSE (test code = 88 mg/dL 70-110 3152574628) CREATININE (test code = 0.55 mg/dL 0.60-1.25 L 0115294331) TOTAL BILI (test code = 0.8 mg/dL 0.1-1.6 6173524240) CALCIUM (test code = 8.9 mg/dL 8.6-10.6 2381092602) T PROTEIN (test code = 7.5 g/dL 6.3-8.2 8864904412) ALBUMIN (test code = 4.8 g/dL 3.5-5.0 6721012061) ALK PHOS (test code = 113 U/L 34-122 9019707654) ALTv (test code = 84 U/L 5-50 H 1742-6) AST(SGOT) (test code = 107 U/L 13-40 H 4453045283) eGFR (test code = mL/min/1.73m2 2892295848) LOUISE (test code = LOUISE) Association of [...] tests). Lab Interpretation Abnormal (test code = 23314-3) [facility] [id number] 10:03:21 Test Item Value Reference Range Interpretation Comments LIPASE (test code = 2312783973) 193 U/L 0-220 Lab Interpretation (test code = Normal 70240-2) [facility] [id number] 09:39:17 Test Item Value Reference Range Interpretation Comments WBC (test code = See_Comment [Automated 2390-2) message] The sy stem which generated this result transmitted reference range : 4.20 - 10.70 10*3/?L. The reference range was not used to interpret this result as normal/abnormal . RBC (test code = See_Comment [Automated 299-8) message] The sy stem which generated this [...] RDW-SD (test code = 44.4 fL 38.5-51.6 41426-8) RDW-CV (test code = 11.9 % 12.1-15.4 L 788-0) PLT (test code = See_Comment [Automated 777-3) message] The sy stem which generated this result transmitted reference range : 150 - 328 10*3/ ?L. The reference r ernie was not used to interpret this result as normal/abnormal . MPV (test code = 9.2 fL 9.8-13.0 L 90179-9) NRBC/100 WBC (test See_Comment [Automat ed code = 9711967443) message] The system which generated this result transmitted reference range : 0.0 - 10.0 /100 WBCs. The refer ence range was not u sed to interpret th is result as normal/abnormal . NRBC x10^3 (test code <0.01 See_Comment [Auto mated = 0787858467) message] The s ystem which generated this result transmitted reference range : 10*3/?L. The reference range was not used to interpret this result as normal/abnormal . GRAN MAT (NEUT) % 69.9 % (test code = 770-8) IMM GRAN % (test code 1.50 % = 2709387415) LYMPH % (test code = 18.9 % 736-9) MONO % (test code = 7.0 % 5905-5) EOS % (test code = 1.9 % 713-8) BASO % (test code = 0.8 % 706-2) GRAN MAT x10^3(ANC) 7.15 10*3/uL 1.99-6.95 H (test code = 2102825757) IMM GRAN x10^3 (test 0.15 10*3/uL 0.00-0.06 H code = 0019493024) LYMPH x10^3 (test code 1.93 10*3/uL 1.09-3.23 = 731-0) MONO x10^3 (test code 0.72 10*3/uL 0.36-1.02 = 742-7) EOS x10^3 (test code = 0.19 10*3/uL 0.06-0.53 711-2) BASO x10^3 (test code 0.08 10*3/uL 0.01-0.09 = 704-7) Lab Interpretation Abnormal (test code = 87147-3) [facility]"
[2023-01-08] MEDS ORDERED: MAGNES/ALUMIN/SIMET 30ML UCUP ONE (22:49)
[2023-01-08] MEDS ORDERED: PANTOPRAZOLE 40 MG INJ ONE (22:49)
[2023-01-08] MEDS ORDERED: ALBUTEROL 2.5 MG/3 ML NEB SOL ONE (22:49)
[2023-01-08] MEDS ORDERED: METHYLPREDNISOLONE 125 MG INJ ONE (22:49)
[2023-01-08] MEDS ORDERED: LIDOCAINE VISCOUS 2% SOLN 15 ML UDC ONE (22:50)
[2023-01-08] MEDS ORDERED: IPRATROPIUM BROM 0.5MG/2.5ML ONE (22:50)
[2023-01-08 22:58] LABS: Absolute Lymphocytes (CBC) 3.4 K/uL (0.7-4.9); Hematocrit 42.8 % (39.6-49.0); Lymphocytes % 37.2 % (15.3-44.8); MCV 103.2 fL (80-100); MPV 6.4 fL (7.6-11.3); RBC Red Blood Cell Count 4.14 M/uL (4.33-5.43)
[2023-01-08 23:05] LABS: Arterial Blood Carboxyhemoglob 9.9 % (0-1.5); Blood Gas Oxyhemoglobin 80.6 % (94-97)
[2023-01-08 23:17] LABS: Albumin 3.8 g/dL (3.4-5.0); Bilirubin Total 0.2 mg/dL (0.2-1.0); Potassium 3.6 mmol/L (3.5-5.1); Protein, Total 7.3 g/dL (6.4-8.2); Troponin High Sensitivity 6.1 pg/mL (<58.9)
[2023-01-08 23:23] LABS: SARS-CoV-2 Antigen Rapid Res Negative (Negative)
[2023-01-09] MEDS ORDERED: NITROGLYCERIN 0.4 MG/TAB SL ONE (00:08)
[2023-01-09] MEDS ORDERED: AZITHROMYCIN 500 MG INJ IVPB ONE (00:58)
[2023-01-09] MEDS ORDERED: HYDROCODONE/APAP 5/325 MG TAB ONE (00:58)
[2023-01-09] MEDS ORDERED: NA CHLORIDE 0.9% 0 ML ONE (00:58)
[2023-01-09] MEDS ORDERED: CEFTRIAXONE 2000 MG/VIAL ONE (00:58)
[2023-01-09] MEDS ORDERED: NA CHLORIDE 0.9% 100 ML ONE (00:59)
--- NOTE | 2023-01-09 01:58 | EDPHYS ---
Physician Documentation [facility] Name: Randy Briones Age: 52 yrs Sex: Male : 1970 Arrival Date: 01/08/2023 Time: 22:29 Bed 3 Private MD: ED Physician Milton Reyes HPI: 01/08 23:58 This 52 yrs old Male presents to ER via EMS with complaints of Shortness of breath. rt 23:58 Patient presents to the ED with dyspnea. He states that he drank several beers tonight. rt Reports a history of COPD. He states that he has chest tightness with deep inspiration. Oxygen saturations were reportedly 85% on his 3 L. He denies other acute complaints at this time. Symptoms are moderate severity, no other aggravating alleviating factors.. Historical: - Allergies: 22:34 Lisinopril; as6 - PMHx: 22:34 Alcoholism; COPD; Hypertension; as6 - PSHx: 22:34 Amputation of left index finger; as6 - Immunization history:: Client reports receiving the 2nd dose of the Covid vaccine, pfizer. - Social history:: Smoking status: Patient reports the use of cigarette tobacco products, smokes two packs cigarettes per day. Patient uses alcohol, on a daily basis. patient/guardian reports recent binge of alcohol consumption. only beer. - Family history:: not pertinent. ROS: 23:58 Constitutional: Negative for fever, chills, and weight loss, Eyes: Negative for injury, rt pain, redness, and discharge, Abdomen/GI: Negative for abdominal pain, nausea, vomiting, diarrhea, and constipation, MS/Extremity: Negative for injury and deformity, Skin: Negative for injury, rash, and discoloration, Neuro: Negative for headache, weakness, numbness, tingling, and seizure, Psych: Negative for depression, anxiety, suicide ideation, homicidal ideation, and hallucinations. 23:58 Cardiovascular: Positive for chest pain, Negative for edema. 23:58 Respiratory: Positive for cough, shortness of breath, wheezing. Exam: 23:58 Constitutional: This is a well developed, well nourished patient who is awake, alert, rt and in no acute distress. Chest/axilla: Normal chest wall appearance and motion. Nontender with no deformity. No lesions are appreciated. Cardiovascular: Regular rate and rhythm with a normal S1 and S2. No gallops, murmurs, or rubs. Normal PMI, no JVD. No pulse deficits. Skin: Warm, dry with normal turgor. Normal color with no rashes, no lesions, and no evidence of cellulitis. MS/ Extremity: Pulses equal, no cyanosis. Neurovascular intact. Full, normal range of motion. Neuro: Awake and alert, GCS 15, oriented to person, place, time, and situation. Cranial nerves II-XII grossly intact. Motor strength 5/5 in all extremities. Sensory grossly intact. Cerebellar exam normal. Normal gait. Psych: Awake, alert, with orientation to person, place and time. Behavior, mood, and affect are within normal limits. 23:58 ECG was reviewed by the Attending Physician. 23:58 Respiratory: Wheezes heard on all lung loz[place], moderate respiratory distress. Vital Signs: 22:32 BP 148 / 93; Pulse 95; Resp 18 S; Temp 97.6(O); Pulse Ox 100% on 15% Non-rebreather as6 mask; Weight 98.88 kg (R); Height 5 ft. 4 in. (162.56 cm) (R); Pain 10/10; 22:57 BP 150 / 98; Pulse 91; Resp 14 S; Pulse Ox 92% on 4 lpm NC; as6 01/09 00:32 BP 126 / 83; Pulse 91; Resp 18 S; Pulse Ox 97% on BiPAP; as6 01:59 BP 118 / 63; Pulse 94; Resp 16 S; Pulse Ox 96% on 55% BiPAP; as6 01/08 22:32 Body Mass Index 37.42 (98.88 kg, 162.56 cm) as6 MDM: 01/08 22:35 Patient medically screened. rt 01/09 01:58 Differential diagnosis: Unstable Angina Pneumonia, pneumothorax, pulmonary embolism. rt Data reviewed: vital signs, nurses notes, lab test result(s), EKG, radiologic studies. Consideration of Admission/Observation Patient was admitted/placed on observation. Management of patient was discussed with the following: Hospitalist: Agrees to admit. I considered the following discharge prescriptions or medication management in the emergency department Medications were administered in the Emergency Department. See MAR. Independent interpretation of the following test(s) in the Emergency Department X-Ray: My interpretation is Consolidation seen on chest x-ray. Test considered but Not performed: CT: Low suspicion for pulmonary embolism, CT angiogram not indicated. Care significantly affected by the following chronic conditions: Chronic Obstructive Pulmonary Disease. Counseling: I had a detailed discussion with the patient and/or guardian regarding: the historical points, exam findings, and any diagnostic results supporting the discharge/admit diagnosis, lab results, radiology results, the need for further work-up and treatment in the hospital, smoking cessation. Response to treatment: the patient's symptoms have markedly improved after treatment. 01/08 22:42 Order name: CBC with Diff rt 01/08 22:42 Order name: CMP rt 01/08 22:42 Order name: Troponin High Sensitivity rt 01/08 22:42 Order name: ETOH Level rt 01/08 22:42 Order name: BNP rt 01/08 22:42 Order name: Chest Single View XRAY rt 01/08 22:42 Order name: ABG rt 01/08 22:58 Order name: SARS RAPID as6 01/08 23:00 Order name: CBC with Automated Diff; Complete Time: 00:04 EDMS 01/08 23:18 Order name: Comprehensive Metabolic Panel; Complete Time: 00:04 EDMS 01/08 23:18 Order name: Troponin High Sensitivity; Complete Time: 00:04 EDMS 01/08 23:18 Order name: NT PRO-BNP; Complete Time: 00:04 EDMS 01/08 23:18 Order name: ABG Arterial Blood Gas; Complete Time: 00:04 EDMS 01/08 23:23 Order name: Alcohol Serum/Plasma; Complete Time: 23:46 EDMS 01/08 23:23 Order name: SARS-COV-2 Antigen Rapid; Complete Time: 00:04 EDMS EC/02 23:58 Rate is 96 beats/min. Rhythm is regular, Normal Sinus Rhythm with No ectopy, Right rt bundle branch block. QRS [place] is Normal. ID interval is normal. QRS interval is normal. QT interval is normal. No Q waves. T waves are Normal. No ST changes noted. Administered Medications: 22:55 Drug: GI Cocktail without - (Maalox Suspension 30 ml, Lidocaine Liquid 2 % 15 kd3 ml) Route: PO; 01/09 00:12 Follow up: Response: No adverse reaction kd3 01/08 22:55 Drug: DuoNeb (albuterol 2.5 mg, ipratropium 0.5 mg) (3:1) (2.5 mg - 0.5 mg) 3 ml Route: kd3 Nebulizer; 01/09 00:12 Follow up: Response: No adverse reaction kd3 01/08 22:56 Drug: SOLU-Medrol (methylPrednisoLONE) 125 mg Route: IVP; Site: right antecubital; kd3 01/09 00:12 Follow up: Response: No adverse reaction 3 01/08 22:56 Drug: ProTONIX (pantoprazole) 40 mg Route: IVP; Site: right antecubital; kd3 01/09 00:12 Follow up: Response: No adverse reaction kd3 00:05 Drug: Nitroglycerin 0.4 mg Route: Sublingual; kd3 00:16 Drug: Nitroglycerin 0.4 mg Route: Sublingual; kd3 02:41 Follow up: Response: No adverse reaction as6 01:01 Drug: HYDROcodone-acetaminophen 5 mg-325 mg 1 tabs Route: PO; kd3 02:41 Follow up: Response: No adverse reaction as6 01:01 Drug: Rocephin - (cefTRIAXone) 2 grams Route: IVPB; Infused Over: 30 mins; Site: right 3 antecubital; 02:41 Follow up: Response: No adverse reaction; IV Status: Completed infusion; IV Intake: as6 100ml 01:18 Drug: AZITHromycin 500 mg Route: IVPB; Infused Over: 1 hrs; Site: right antecubital; kd3 02:41 Follow up: Response: No adverse reaction; IV Status: Completed infusion; IV Intake: as6 250ml Disposition: 01:58 Critical Care:. rt Disposition Summary: 01/09/23 01:58 Hospitalization Ordered Hospitalization Status: Inpatient Admission rt Provider: Joselito Thibodeaux rt [facility] rt Condition: Fair rt Problem: an acute exacerbation rt Symptoms: have improved rt Bed/Room Type: Standard rt Room Assignment: 431(01/09/23 02:26) cg Diagnosis - Pneumonia, unspecified organism rt - Acute respiratory failure with hypoxia rt Forms: - Medication Reconciliation Form rt - SBAR form rt Critical care time excluding procedures: 01:58 Critical care time: Bedside Care: 30 minutes, Consultation: 5 minutes. Total time: 35 rt minutes Signatures: Dispatcher [employer] Jairo Perry, FINE HAIRER-C FINE HAIRER-Cla1 Bridget Gomez, RN RN cg Parish Chapman, RN RN as6 Polly Guzman RN RN kd3 Milton Reyes MD MD rt Corrections: (The following items were deleted from the chart) 02:26 01:58 rt cg
--- NOTE | 2023-01-09 01:58 | ER ---
Nurse's Notes [facility] Name: Randy Briones Age: 52 yrs Sex: Male : 1970 Arrival Date: 01/08/2023 Time: 22:29 Bed 3 Private MD: Diagnosis: Pneumonia, unspecified organism;Acute respiratory failure with hypoxia Presentation: 01/08 22:32 Chief complaint: EMS states: called out for shortness of breath. pt is supposed to wear as6 home O2 and has not been lately and pt has been binge drinking over the last 4 days. Coronavirus screen: At this time, the client does not indicate any symptoms associated with coronavirus-19. Ebola Screen: No symptoms or risks identified at this time. Initial Sepsis Screen: Does the patient meet any 2 criteria? No. Patient's initial sepsis screen is negative. Does the patient have a suspected source of infection? No. Patient's initial sepsis screen is negative. Risk Assessment: Do you want to hurt yourself or someone else? Patient reports no desire to harm self or others. Onset of symptoms was January 08, 2023. 22:32 Method Of Arrival: EMS: [facility] as6 22:32 Acuity: CANDACE 2 as6 Historical: - Allergies: 22:34 Lisinopril; as6 - PMHx: 22:34 Alcoholism; COPD; Hypertension; as6 - PSHx: 22:34 Amputation of left index finger; as6 - Immunization history:: Client reports receiving the 2nd dose of the Covid vaccine, pfizer. - Social history:: Smoking status: Patient reports the use of cigarette tobacco products, smokes two packs cigarettes per day. Patient uses alcohol, on a daily basis. patient/guardian reports recent binge of alcohol consumption. only beer. - Family history:: not pertinent. Screenin/03 00:33 [facility] ED Fall Risk Assessment (Adult) Score/Fall Risk Level 0 - 2 = Low Risk. Abuse as6 screen: Denies threats or abuse. Denies injuries from another. Nutritional screening: No deficits noted. Tuberculosis screening: No symptoms or risk factors identified. Assessment: 01/08 22:48 General: Appears in no apparent distress. Behavior is calm, cooperative. Pain: as6 Complains of pain in chest. Neuro: Level of Consciousness is awake, alert, obeys commands, Oriented to person, place, time, situation. Cardiovascular: Reports chest pain, shortness of breath. Respiratory: Respiratory effort is even, labored, Respiratory pattern is regular, symmetrical. GI: Abdomen is distended. 23:14 General: placed on BiPAP by RT. as6 Vital Signs: 22:32 BP 148 / 93; Pulse 95; Resp 18 S; Temp 97.6(O); Pulse Ox 100% on 15% Non-rebreather as6 mask; Weight 98.88 kg (R); Height 5 ft. 4 in. (162.56 cm) (R); Pain 10/10; 22:57 BP 150 / 98; Pulse 91; Resp 14 S; Pulse Ox 92% on 4 lpm NC; as6 03 00:32 BP 126 / 83; Pulse 91; Resp 18 S; Pulse Ox 97% on BiPAP; as6 01:59 BP 118 / 63; Pulse 94; Resp 16 S; Pulse Ox 96% on 55% BiPAP; as6 01/08 22:32 Body Mass Index 37.42 (98.88 kg, 162.56 cm) as6 ED Course: 01/08 22:29 Patient arrived in ED. as6 22:30 Parish Chapman, BRIGETTE is Primary Nurse. as6 22:30 Milton Reyes MD is Attending Physician. rt 22:32 Arm band placed on. as6 22:34 Triage completed. as6 22:48 Maintain EMS IV. Dressing intact. Good blood return noted. Site clean \T\ dry. Gauge \T\ as 6 site: 20G RAC. 01/09 00:33 Placed in gown. Bed in low position. Call light in reach. Side rails up X2. as6 01:57 Joselito Thibodeaux MD is Hospitalizing Provider. rt 02:42 No provider procedures requiring assistance completed. Patient admitted, IV remains in kd3 place. Administered Medications: 01/08 22:55 Drug: GI Cocktail without - (Maalox Suspension 30 ml, Lidocaine Liquid 2 % 15 kd3 ml) Route: PO; 01/09 00:12 Follow up: Response: No adverse reaction kd3 01/08 22:55 Drug: DuoNeb (albuterol 2.5 mg, ipratropium 0.5 mg) (3:1) (2.5 mg - 0.5 mg) 3 ml Route: kd3 Nebulizer; 01/09 00:12 Follow up: Response: No adverse reaction kd3 01/08 22:56 Drug: SOLU-Medrol (methylPrednisoLONE) 125 mg Route: IVP; Site: right antecubital; kd3 01/09 00:12 Follow up: Response: No adverse reaction kd3 01/08 22:56 Drug: ProTONIX (pantoprazole) 40 mg Route: IVP; Site: right antecubital; kd3 01/09 00:12 Follow up: Response: No adverse reaction kd3 00:05 Drug: Nitroglycerin 0.4 mg Route: Sublingual; kd3 00:16 Drug: Nitroglycerin 0.4 mg Route: Sublingual; kd3 02:41 Follow up: Response: No adverse reaction as6 01:01 Drug: HYDROcodone-acetaminophen 5 mg-325 mg 1 tabs Route: PO; kd3 02:41 Follow up: Response: No adverse reaction as6 01:01 Drug: Rocephin - (cefTRIAXone) 2 grams Route: IVPB; Infused Over: 30 mins; Site: right kd3 antecubital; 02:41 Follow up: Response: No adverse reaction; IV Status: Completed infusion; IV Intake: as6 100ml 01:18 Drug: AZITHromycin 500 mg Route: IVPB; Infused Over: 1 hrs; Site: right antecubital; kd3 02:41 Follow up: Response: No adverse reaction; IV Status: Completed infusion; IV Intake: as6 250ml Medication: 02:42 VIS not applicable for this client. kd3 Intake: 02:41 IV: 100ml; Total: 100ml. as6 02:41 IV: 250ml; Total: 350ml. as6 Outcome: 01:58 Decision to Hospitalize by Provider. rt 02:42 Admitted to Med/surg kd3 02:42 Condition: stable 02:42 Discharge instructions given to patient, Instructed on the need for transfer, Demonstrated understanding of instructions. 02:42 Admitted to Tele accompanied by tech, via wheelchair, room 431, with oxygen, with chart.as6 02:42 Condition: stable 02:42 Instructed on the need for admit. 02:42 Patient left the ED. as6 Signatures: Parish Chapman RN RN as6 Polly Guzman RN RN kd3 [place], Milton, MD MD rt
--- NOTE | 2023-01-09 02:29 | P.HP ---
Certification for Inpatient Patient admitted to: Inpatient With expected LOS: >2 Midnights Patient will require the following post-hospital care: None Practitioner: I am a practitioner with admitting privileges, knowledge of patient current condition, hospital course, and medical plan of care. Services: Services provided to patient in accordance with Admission requirements found in Title 42 Section 412.3 of the Code of Federal Regulations Patient History Date of Service: 01/09/23 Reason for admission: COPD exacerbation, pneumonia History of Present Illness: 52-year-old male with history of COPD on chronic home O2/steroids, tobacco abuse, alcoholism, hypertension presented to the emergency department for shortness of breath/respiratory distress. He is reportedly been on a drinking binge for the past week or so, he reports increasing shortness of breath and subjective fever for last 2 to 3 days. EMS reported sats on 3 L per nasal cannula of 85%. Upon arrival to ED patient was placed on BiPAP. His labs were significant for EtOH level 374 ABG showed pH of 7.36 PCO2 of 50 PO2 62.3. Chest x-rays performed which revealed suspected right middle lobe pneumonia. He was given IV antibiotics, is currently tolerating BiPAP well, received IV steroids and nebulizer treatments in ED. ED provider wishes to admit for further evaluation and management of COPD exacerbation, acute on chronic hypercapnic/hypoxic respiratory failure and pneumonia. Allergies lisinopril Allergy (Verified 04/26/22 13:11) Shortness of breath BC powder Allergy (Mild, Uncoded 04/26/22 13:10) Hives Lisinopril Allergy (Mild, Uncoded 04/26/22 13:10) Shortness of breath Home Medications: Amlodipine [Norvasc*] 10 mg PO DAILY 01/03/21 Metoprolol Tartrate [Lopressor*] 50 mg PO BID #60 tab 04/28/22 predniSONE [Prednisone*] 10 mg PO DAILY #30 tab 04/28/22 Aspirin Chewable [Aspirin Chewable*] 81 mg PO DAILY #30 tab.chew 11/24/22 Pantoprazole Sodium 40 mg PO BID #60 tab 11/24/22 - Past Medical/Surgical History Diabetic: No -: Hypertension -: COPD on chronic steroids/home O2 -: Tobacco abuse -: Alcohol abuse -: GERD -: Obesity -: 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 - Family History Mother -: Diabetes, Cancer Notes: colon cancer Father -: Lung disease Notes: COPD - Social History Smoking Status: Current every day smoker Counseled patient to stop smoking for: less than 10 minutes Alcohol use: Yes CD- Drugs: No Caffeine use: Yes Place of Residence: Home Review of Systems 10-point ROS is otherwise unremarkable General: Chills Respiratory: Cough, Shortness of Breath Physical Examination - Physical Exam General: Alert, In no apparent distress, Oriented x3 HEENT: Atraumatic, PERRLA, Mucous membr. moist/pink, EOMI, Sclerae nonicteric Neck: Supple, 2+ carotid pulse no bruit, No LAD, Without JVD or thyroid abnormality Respiratory: Diminished, Expiratory wheezes Cardiovascular: No edema, Regular rate/rhythm, Normal S1 S2 Capillary refill: <2 Seconds Gastrointestinal: Normal bowel sounds, No tenderness Musculoskeletal: No tenderness Integumentary: No rashes Neurological: Normal speech, Normal strength at 5/5 x4 extr, Normal tone, Normal affect - Studies Laboratory Data (last 24 hrs) 01/08/23 22:50: Sodium 141, Potassium 3.6, BUN 6 L, Creatinine 0.60 L, Glucose 85, Total Bilirubin 0.2, AST 13 L, ALT 19, Alkaline Phosphatase 54 01/08/23 22:50: WBC 9.30, Hgb 14.6, Hct 42.8, Plt Count 241 Assessment and Plan - Plan Assessment: Acute on chronic hypercapnic/hypoxic respiratory failure secondary to COPD with exacerbation-on chronic steroids/home 02 Right middle lobe pneumonia HTN ETOH abuse Tobacco abuse Plan: Acute on chronic hypercapnic/hypoxic respiratory failure secondary to COPD with exacerbation-on chronic steroids/home 02 Continue BiPAP, supplemental oxygen as needed, steroids, as needed nebulizer treatments. Pulmonology to be consulted. Patient counseled on need for tobacco cessation, he currently takes prednisone 10 mg daily as well as oxygen 3 L per nasal cannula. Appreciate further input from pulmonology. Right middle lobe pneumonia Continue antibiotics Rocephin/Zithromax. HTN Continue home meds ETOH abuse Alcohol level significantly elevated at this time, reports binge drinking the past 5 to 7 days. Will monitor for signs of alcohol withdrawal, as needed Ativan ordered. Counseled on need for alcohol cessation. Tobacco abuse counseled on need for tobacco cessation especially in the setting of his acute/chronic respiratory failure/COPD. DVT PPX: Lovenox Code status: Full Discharge Plan: Home Plan to discharge in: 48 Hours - Advance Directives Does patient have a Living Will: No Does patient have a Durable POA for Healthcare: No - Code Status/Comfort Care Code Status Assessed: Yes (Full code) Critical Care: No Time Spent Managing Pts Care (In Minutes): 70
[2023-01-09] MEDS ORDERED: HYDROCODONE/APAP 5/325 MG TAB PO PRN (03:07)
[2023-01-09] MEDS ORDERED: ACETAMINOPHEN 500 MG TAB PO PRN (03:07)
[2023-01-09] MEDS ORDERED: BENZONATATE 100 MG CAP PO PRN (03:07)
[2023-01-09] MEDS ORDERED: IPRATROPIUM BROM 0.5MG/2.5ML NEB PRN (03:07)
[2023-01-09] MEDS ORDERED: FAMOTIDINE 20 MG/2 ML VIAL IV SCH (03:07)
[2023-01-09] MEDS ORDERED: LORazepam 2 MG/ML VIAL IV PRN (03:07)
[2023-01-09] MEDS ORDERED: ALBUTEROL 2.5 MG/3 ML NEB SOL NEB PRN (03:07)
[2023-01-09] MEDS ORDERED: ONDANSETRON 4 MG/2 ML VIAL IV PRN (03:07)
[2023-01-09 03:24] VITALS: O2SAT 99
[2023-01-09 03:52] VITALS: BMI 32.9
[2023-01-09] MEDS ORDERED: chlordiazePOXIDE HCl 5 MG CAP PO PRN (08:35)
[2023-01-09] MEDS ORDERED: GABAPENTIN 100 MG CAP PO SCH (09:00)
[2023-01-09] MEDS ORDERED: METOPROLOL TAR 50 MG TAB PO SCH (09:00)
[2023-01-09] MEDS ORDERED: predniSONE 20 MG TAB PO SCH (09:00)
[2023-01-09] MEDS ORDERED: AZITHROMYCIN IV 500 MG in NA CHLORIDE 0.9% 250 ML IVPB SCH (09:00)
[2023-01-09] MEDS ORDERED: AMOX/K CLAV 500 MG TAB PO SCH (09:00)
[2023-01-09] MEDS ORDERED: AMLODIPINE 10 MG TAB PO SCH (09:00)
[2023-01-09] MEDS ORDERED: ENOXAPARIN 40 MG/0.4 ML SQ SCH (09:00)
[2023-01-09] MEDS ORDERED: METHYLPREDNISOLONE 40 MG INJ IV SCH (09:00)
[2023-01-09] MEDS ORDERED: DULERA 200/5 (MOMETASONE/FORMOTEROL) INHALER IH SCH (09:00)
[2023-01-09] MEDS ORDERED: CEFTRIAXONE 1,000 MG in NA CHLORIDE 0.9% 50 ML IVPB SCH (09:00)
[2023-01-09] MEDS ORDERED: THIAMINE 200 MG/2 ML INJ IVP SCH (09:00)
[2023-01-09 12:06] VITALS: BP 158/77; TEMP 97.9
--- NOTE | 2023-01-09 14:29 | EKG ---
Test Date: 2023-01-08 Test Time: 22:41:47 Attending Radiologist: MEASUREMENT RESULTS: Intervals: Rate: 96 MI: 140 QRSD: 108 QT: 372 QTc: 469 Meno: P: 67 MI: 140 QRS: 88 T: 75 INTERPRETIVE STATEMENTS: Normal sinus rhythm Incomplete right bundle branch block Borderline ECG Compared to ECG 11/24/2022 04:16:39 Sinus tachycardia no longer present Electronically Signed On 01-09-23 14:28:10 FRONT OFFICE CLERK by Rosalino Albert
--- NOTE | 2023-01-09 15:40 | P.DS ---
Admission Date: 01/09/23 Discharge Date: 01/09/23 Disposition: ELOPED Discharge Condition: FAIR Reason for Admission: COPD exacerbation, pneumonia Brief History of Present Illness: Patient is 52 years of age alcoholic COPD admitted with worsening dyspnea Hospital Course: He left AGAINST MEDICAL ADVICE. Patient's oxygen level was less than 80% he refused to stay in the hospital I informed him the risk of leaving AGAINST MEDICAL ADVICE and without oxygen could be hazardous to his health. Patient left without any notification prior to discharge I did send in some insulin antibiotics and nebulizers Vital Signs/Physical Exam: Temp Pulse Resp BP Pulse Ox 97.9 F 96 H 20 158/77 H 92 01/09/23 12:00 01/09/23 12:00 01/09/23 12:00 01/09/23 12:00 01/09/23 12:00 Laboratory Data at Discharge: WBC 9.30 K/uL (4.3-10.9) 01/08/23 22:50 Hgb 14.6 g/dL (13.6-17.9) 01/08/23 22:50 Hct 42.8 % (39.6-49.0) 01/08/23 22:50 Plt Count 241 K/uL (152-406) 01/08/23 22:50 Sodium 141 mmol/L (136-145) 01/08/23 22:50 Potassium 3.6 mmol/L (3.5-5.1) 01/08/23 22:50 BUN 6 mg/dL (7-18) L 01/08/23 22:50 Creatinine 0.60 mg/dL (0.70-1.30) L 01/08/23 22:50 Glucose 85 mg/dL (74-106) 01/08/23 22:50 Total Bilirubin 0.2 mg/dL (0.2-1.0) 01/08/23 22:50 AST 13 U/L (15-37) L 01/08/23 22:50 ALT 19 U/L (16-61) 01/08/23 22:50 Alkaline Phosphatase 54 U/L (45-117) 01/08/23 22:50 Triglycerides 51 mg/dL (<150) 01/09/23 04:36 Cholesterol 271 mg/dL (<200) H 01/09/23 04:36 HDL Cholesterol 119 mg/dL (40-60) H 01/09/23 04:36 Cholesterol/HDL Ratio 2.28 01/09/23 04:36 Home Medications: Amlodipine [Norvasc*] 10 mg PO DAILY 01/03/21 Metoprolol Tartrate [Lopressor*] 50 mg PO BID #60 tab 04/28/22 predniSONE [Prednisone*] 10 mg PO DAILY #30 tab 04/28/22 Aspirin Chewable [Aspirin Chewable*] 81 mg PO DAILY #30 tab.chew 11/24/22 Pantoprazole Sodium 40 mg PO BID #60 tab 11/24/22 Albuterol Sulfate [Albuterol Sulfate 0.083% Neb Soln] 2.5 mg IH QID 30 Days #300 ml 01/09/23 Amox/Clavulanate [Augmentin 500-125 mg Tab*] 500 mg PO BID 7 Days #21 tab 01/09/23 Fluticasone/Umeclidin/Vilanter [Trelegy Ellipta 100-62.5-25] 1 each IH DAILY 30 Days #30 aero 01/09/23 New Medications: Albuterol Sulfate [Albuterol Sulfate 0.083% Neb Soln] 2.5 mg IH QID 30 Days #300 ml Amox/Clavulanate [Augmentin 500-125 mg Tab*] 500 mg PO BID 7 Days #21 tab Fluticasone/Umeclidin/Vilanter [Trelegy Ellipta 100-62.5-25] 1 each IH DAILY 30 Days #30 aero Physician Discharge Instructions: please give pt Dulera from hospital ue 2 puffs BId/ Take vitamin Bi ( thiamine) 200 mg daily Diet: Regular Followup: Mayur Martinez MD [ACTIVE - CAN ADMIT] - Unknown,U [Primary Care Provider] -
--- NOTE | 2023-01-09 20:21 | RAD REPORT ---
EXAM DESCRIPTION: RAD - Chest Single View - 01/08/2023 11:24 pm CLINICAL HISTORY: COPD.. TECHNIQUE: AP portable chest x-ray upright on 01/08/2023, at 23: 17. COMPARISON: 11/24/2022. FINDINGS: Heart: Normal size and configuration. Mediastinal Structures: Normal and midline.. Lung [place]: There is increased density in the medial aspect of the right lung base. A right middle l obe infiltrate should be considered. Pulmonary Vascularity: Normal. Pleural Space: No active disease. Bony Structures: Normal. IMPRESSION: 1. Questionable right middle lobe infiltrate. Electronically signed by: Haroon Irwin MD 01/08/2023 11:34 PM TOUR SALES REPRESENTATIVE Due to temporary technical issues with the PACS/Fluency reporting system, reports are being signed by the in house radiologists without review as a courtesy to insure prompt reporting. The interpreting radiologist is fully responsible for the content of the report
== END 2023-01-09 13:15 | disposition left against medical advice (07) ==
LOC: ER 22:23 → INTOOBSV 01-09 02:09 → ERHOLD 01-09 02:09 → 4TH 01-09 02:28
PROVIDERS: ADMIT Hospitalist; ATTEND Internal Medicine Sleep Medicine
DX: J96.22 Acute and chronic respiratory failure with hypercapnia (principal); J44.1 Chronic obstructive pulmonary disease with (acute) exacerbation; J18.1 Lobar pneumonia, unspecified organism; I10 Essential (primary) hypertension; F10.20 Alcohol dependence, uncomplicated; Z72.0 Tobacco use; Z99.81 Dependence on supplemental oxygen; Z53.29 Procedure and treatment not carried out because of patient's decision for other reasons; Z88.8 Allergy status to other drugs, medicaments and biological substances; Z20.822 Contact with and (suspected) exposure to COVID-19
CPT/HCPCS: 96365; 93005; 85025; 36415; 80061; 84484 ×3; 80053; 84145; 83880; 71045; 94640; 82805; 94660; 96375; 99285; 87811; J3411; J7512; J7613; J7644; C9113; J0456; J3535; J1650; J2930; J7050; J0696; G0480; G0378; J2920

== ENCOUNTER 2023-01-09 16:43 | Emergency (ER) | payer OTHER ==
[2012-06-09 17:20] VITALS: BP 136/71
--- OUTSIDE RECORDS SUMMARY | 2023-01-09 16:54 | XMS REPORT | Continuity of Care Document ---
:1970 Author Organization [facility] t Address [address] [place] [address] Care Team Providers Name Role Phone LOPEZGIRISH [...] (BMI 5-16 ity of 30-39.9) 30-39.9) 00:00: [place] [address] Medical Branch Allergies, Adverse Reactions, Alerts Allergy Allergy Status Severity Reaction(s) Onset Inactive Treating Comm ents Source Name Type Date Date Clinician Lisinopr Propensi Active Anaphylaxis 2018-0 U nivers il ty to 5-16 ity of adverse 00:00: [place] reaction 00 Medical s Branch LISINOPR DRUG Active Anaphylaxis Uni [place] INGREDI 5-16 ity of 00:00: [address] Social History Social Habit Start Date Stop Date Quantity Comments Source History of Smokes tobacco University of tobacco use daily [facility] Exposure to 2022-10-04 2022-10-14 Not sure [facility] SARS-CoV-2 00:00:00 10:25:00 [facility] [place] Alcohol intake 2022-03-09 2022-03-09 4.29 /d University 00:00:00 00:00:00 [facility] Tobacco use and 2018-03-24 2018-03-24 User of smokeless Un iversity of exposure 00:00:00 00:00:00 tobacco [facility] Tobacco Comment 2018-03-24 2018-03-24 trying to quit Unive rsity of 00:00:00 00:00:00 [facility] Sex Ass[birth year] At [birth year] Universit y of 00:00:00 00:00:00 [facility] Smoking Status Start Date Stop Date Source Smokes tobacco daily 2018-03-24 00:00:00 Univers ity of [facility] Medications Ordered Filled Start Stop Current Ordering Indication Dosage Frequency Signature Comments Components Source Medication Medication Date Date Medication? Clinician (SIG) Name Name iopamidol 2021-11- No [id number] 70mL 70 mL, U nivers (ISOVUE 12-15- Intravenou ity o f 370-500 mL) 18:30: 18:30 s, ONCE, 1 [place] injection 00 :00 dose, On Medica l 70 mL [facility] 10/14/22 at 1230, Routine methylpredn 2021-11 Yes 125mg 125 mg, Un odalys isolone sod 12-15 Intravenou it y of succ 18:00: s, Q6H, [place] (SOLU-MEDRO 00 First dose Me dical L) on [facility] injection 10/14/22 at 125 mg 1200, Until Discontinu ed, Routine furosemide 2021-11- No 40mg 40 mg, IV U nivers (LASIX) 12-15 12- Push, ity of injection 17:45: 16:39 ONCE, 1 [place] 40 [place] 00 :00 dose, On Medical [facility] 10/14/22 at 1145, LAURYN ipratropium 2021-11- No [...] 10/14/22 at 1045, Routine levoFLOXaci 2021-11 Yes [id number] 750mg Take 1 Univers n 750 mg [...] of succ 11:45: 10:43 s, ONCE, 1 [place] (SOLU-MEDRO 00 :00 dose, On Medi keo [...] 0530, solution 3 Routine mL albuterol Yes [id number] 2{puff} Inhale 2 Univers 90 4-14 Puffs ity of mcg/actuati 00:00: every 4 [place] as on inhaler 00 (four) Medical hours as Branch needed for Wheezing or Shortness of Breath. albuterol Yes [id number] 2.5mg Inhale 3 Univers 2.5 mg /3 4-14 mL every 4 ity of mL (0.083 00:00: (four) [place] %) 00 hours. May Medical nebulizer also Branch solution nebulize one extra every 6 hours. budesonide- Yes [id number] 2{puff} Inhale 2 Univers formoteroL 4-14 Puffs 2 ity of 160-4.5 00:00: (two) [place] mcg/actuati 00 times Medical on inhaler daily. Branch triamterene Yes [id number] 1{tbl} Take 1 Univers -hydrochlor 4-14 tablet by ity of othiazid 00:00: mouth [place] 37.5-25 mg 00 daily. Medical tablet Branch chlordiazeP Yes [id number] 25mg Take 1 Univers OXIDE 25 mg 4-14 capsule by it y of capsule 00:00: mouth [place] 00 every 6 Medical (six) Branch hours as needed for Anxiety, Agitation, Heart Rate => 100 or Detox. predniSONE Yes [id number] TAKE ONE Univers 10 mg 4-14 TABLET BY ity of tablet 00:00: MOUTH [place] 00 DAILY Medical Branch albuterol Yes [id number] 2{puff} Inhale 2 Univers 90 4-14 Puffs ity of mcg/actuati 00:00: every 4 [place] as on inhaler 00 (four) Medical hours as Branch needed for Wheezing or Shortness of Breath. albuterol Yes [id number] 2.5mg Inhale 3 Univers 2.5 mg /3 4-14 mL every 4 ity of mL (0.083 00:00: (four) [place] %) 00 hours. May Medical nebulizer also Branch solution nebulize one extra every 6 hours. budesonide- Yes [id number] 2{puff} Inhale 2 Univers formoteroL 4-14 Puffs 2 ity of 160-4.5 00:00: (two) [place] mcg/actuati 00 times Medical on inhaler daily. Branch triamterene Yes [id number] 1{tbl} Take 1 Univers -hydrochlor 4-14 tablet by ity of othiazid 00:00: mouth [place] 37.5-25 mg 00 daily. Medical tablet Branch chlordiazeP Yes [id number] 25mg Take 1 Univers OXIDE 25 mg 4-14 capsule by it y of capsule 00:00: mouth [place] 00 every 6 Medical (six) Branch hours as needed for Anxiety, Agitation, Heart Rate => 100 or Detox. predniSONE Yes [id number] TAKE ONE Univers 10 mg 4-14 TABLET BY ity of tablet 00:00: MOUTH [place] 00 DAILY Medical Branch albuterol Yes [id number] 2{puff} Inhale 2 Univers 90 4-14 Puffs ity of mcg/actuati 00:00: every 4 [place] as on inhaler 00 (four) Medical hours as Branch needed for Wheezing or Shortness of Breath. albuterol Yes [id number] 2.5mg Inhale 3 Univers 2.5 mg /3 4-14 mL every 4 ity of mL (0.083 00:00: (four) [place] %) 00 hours. May Medical nebulizer also Branch solution nebulize one extra every 6 hours. budesonide- Yes [id number] 2{puff} Inhale 2 Univers formoteroL 4-14 Puffs 2 ity of 160-4.5 00:00: (two) [place] mcg/actuati 00 times Medical on inhaler daily. Branch triamterene Yes [id number] 1{tbl} Take 1 Univers -hydrochlor 4-14 tablet by ity of othiazid 00:00: mouth [place] 37.5-25 mg 00 daily. Medical tablet Branch chlordiazeP Yes [id number] 25mg Take 1 Univers OXIDE 25 mg 4-14 capsule by it y of capsule 00:00: mouth [place] 00 every 6 Medical (six) Branch hours as needed for Anxiety, Agitation, Heart Rate => 100 or Detox. predniSONE Yes [id number] TAKE ONE Univers 10 mg 4-14 TABLET [...] mouth 2 [place] 14 (two) Medical times [place] daily as needed ([facility] pain). foLIC acid Yes 1mg Take 1 mg Un odalys 1 mg tablet 5-18 by mouth ity of 16:32: daily. [place] 14 Medical Branch triamterene 2017-0 Yes 1{capsu Take 1 U nivers -hydrochlor 5-18 le} capsule by it y of othiazide 16:32: mouth [place] 37.5-25 mg 14 every Medical per capsule morning. Bran ch amLODIPine 2018-0 Yes 10mg Take 10 mg U nivers 10 mg 5-18 by mouth ity of tablet 16:32: at [place] 14 bedtime. Medical Branch gabapentin 2018-0 Yes 100mg Take 100 Un odalys 100 mg 5-18 mg by ity of capsule 16:32: mouth 2 [place] 14 (two) Medical times Branch daily as needed ([facility] pain). foLIC acid 2018-0 Yes 1mg Take 1 mg Un odalys 1 mg tablet 5-18 by mouth ity of 16:32: daily. [place] [address] Medical Branch triamterene 0 Yes 1{capsu Take 1 U nivers -hydrochlor 5-18 le} capsule by it y of othiazide 16:32: mouth [place] 37.5-25 mg 14 every Medical per capsule morning. Bran ch amLODIPine 2018-0 Yes 10mg Take 10 mg U nivers 10 mg 5-18 by mouth ity of tablet 16:32: at [place] [address] bedtime. Medical Branch gabapentin 2018-0 Yes 100mg Take 100 Un odalys 100 mg 5-18 mg by ity of capsule 16:32: mouth 2 [place] 14 (two) Medical times [place] daily as needed ([facility] pain). foLIC acid 2018-0 Yes 1mg Take 1 mg Un odalys 1 mg tablet 5-18 by mouth ity of 16:32: daily. [address] triamterene 2017-0 Yes 1{capsu Take 1 U nivers -hydrochlor 5-18 le} capsule by it y of othiazide 16:32: mouth [place] 37.5-25 mg 14 every Medical per capsule morning. Bran ch amLODIPine 2017-0 Yes 10mg Take 10 mg U nivers 10 mg 5-18 by mouth ity of tablet 16:32: at [place] 14 bedtime. Medical Branch budesonide- 2017-0 Yes [...] Immunization Date Status Comments [facility] Immunization Name Name SARS-COV-2 COVID-19 2021-02-03 Completed Unive rsity of PFIZER VACCINE 00:00:00 [facility] SARS-COV-2 COVID-19 2021-02-03 Completed Unive rsity of PFIZER VACCINE 00:00:00 [facility] SARS-COV-2 COVID-19 2021-02-03 Completed Unive rsity of PFIZER VACCINE 00:00:00 [facility] SARS-COV-2 COVID-19 2021-01-13 Completed Unive rsity of PFIZER VACCINE 00:00:00 [facility] SARS-COV-2 COVID-19 2021-01-13 Completed Unive rsity of PFIZER VACCINE 00:00:00 [facility] SARS-COV-2 COVID-19 2021-01-13 Completed Unive rsity of PFIZER VACCINE 00:00:00 [facility] Pneumococcal 2018-03-26 Completed University o f Polysaccharide, 00:00:00 [facility] ical PPSV23 (PNEUMOVAX) [place] Influenza Virus 2018-03-26 Completed Universit y of Vaccine Quad IM 3+ 00:00:00 [facility] Pneumococcal 2018-03-26 Completed University o f Polysaccharide, 00:00:00 [place] Med ical PPSV23 (PNEUMOVAX) [place] Influenza Virus 2018-03-26 Completed Universit y of Vaccine [facility] IM 3+ 00:00:00 [facility] Pneumococcal 2018-03-26 Completed University o f Polysaccharide, 00:00:00 [place] Med ical PPSV23 (PNEUMOVAX) [place] Influenza Virus 2018-03-26 Completed Universit y of Vaccine Quad IM 3+ 00:00:00 [facility] Vital Signs Vital Name Observation Time Observation Value Comments Source Systolic blood 2022-10-14 19:43:00 111 mm[Hg] Univer sity of pressure [facility] Diastolic blood 2022-10-14 19:43:00 74 mm[Hg] Unive rsity of pressure [place] [facility] Heart rate 2022-10-14 19:43:00 98 /min Universi ty of [place] [facility] Body temperature 2022-10-14 19:43:00 36.39 Debbie Univ ersity of [place] [facility] Respiratory rate 2022-10-14 19:43:00 22 /min Univ ersity of [place] [facility] Oxygen saturation in 2022-10-14 19:43:00 94 /min University of Arterial blood by [facility] keo Pulse oximetry Branch Body height 2022-10-14 16:13:00 162.6 cm Universi ty of [place] [facility] Body weight 2022-10-14 16:13:00 81.647 kg Universi ty of [place] [facility] BMI 2022-10-14 16:13:00 30.90 kg/m2 Universi ty of [place] [facility] Systolic blood 2022-03-12 10:13:00 119 mm[Hg] Univer sity of pressure [place] [facility] Diastolic blood 2022-03-12 10:13:00 75 mm[Hg] Unive rsity of pressure [place] [facility] Heart rate 2022-03-12 10:13:00 105 /min Universi ty of [place] [facility] Body temperature 2022-03-12 10:13:00 37.28 Debbie Univ ersity of [place] [facility] Respiratory rate 2022-03-12 10:13:00 19 /min Univ ersity of [place] [facility] Body height 2022-03-12 10:13:00 162.6 cm Universi ty [facility] [place] [facility] Body weight 2022-03-12 10:13:00 99.791 kg Universi ty of [place] [facility] BMI 2022-03-12 10:13:00 37.76 kg/m2 Universi ty of [place] [facility] Oxygen saturation in 2022-03-12 10:13:00 96 /min University of Arterial blood by [facility] keo Pulse oximetry Branch Systolic blood 2022-02-20 11:57:00 155 mm[Hg] Univer sity of pressure [place] [facility] Diastolic blood 2022-02-20 11:57:00 88 mm[Hg] Unive rsity of pressure [place] [facility] Heart rate 2022-02-20 11:57:00 105 /min Universi ty of [place] [facility] Respiratory rate 2022-02-20 11:57:00 18 /min [facility] Oxygen saturation in 2022-02-20 11:57:00 100 /min [facility] Arterial blood by [facility] Pulse oximetry Branch Body temperature 2022-02-20 09:25:00 37 Debbie [facility] Body height 2022-02-20 09:25:[address] [facility] Body weight 2022-02-20 09:25:[address] [facility] BMI 2022-02-20 09:25:00 36.39 kg/m2 [facility] Procedures Procedure Date / Time Performing Clinician Source Performed CT ABDOMEN PELVIS W 2022-10-14 17:33:00 Melinda Maciel [facility] CONTRAST [facility] XR CHEST 1 VW 2022-10-14 17:10:37 Singer [facility] TROPONIN I 2022-10-14 16:37:00 Singer [facility] COMP. METABOLIC PANEL 2022-10-14 16:37:00 Melinda Maciel [facility] ([id number]) [facility] CBC WITH DIFF 2022-10-14 16:37:00 Singer [facility] PROTHROMBIN TIME / INR 2022-10-14 16:37:00 Melinda Maciel [facility] URINALYSIS 2022-10-14 16:37:00 Singer [facility] N-TERMINAL PRO-BNP 2022-10-14 16:37:00 Melinda Maciel [facility] CONSENT/REFUSAL FOR 2022-10-14 15:56:36 Doctor Unassigned, No Un [facility] [place] DIAGNOSIS AND TREATMENT Name Medical Branch CONSENT/REFUSAL FOR 2022-03-12 10:03:12 [facility]igned, [facility] Name Medical Branch XR CHEST 1 VW 2022-02-20 09:59:00 Christy Shaw [facility] LIPASE 2022-02-20 09:30:00 Christy Shaw [facility] TROPONIN I 2022-02-20 09:30:00 Christy Shaw [facility] COMP. METABOLIC PANEL 2022-02-20 09:30:00 Christy Shaw [facility] ([id number]) [facility] CBC WITH DIFF 2022-02-20 09:30:00 Christy Shaw [facility] N-TERMINAL PRO-BNP 2022-02-20 09:30:[address] [facility] NOTICE OF PRIVACY 2022-02-20 09:15:02 Doctor Unassigned, No Univ [facility] PRACTICES Name [facility] Branch CONSENT/REFUSAL FOR 2022-02-20 09:14:47 Doctor Unassigned, No [facility] DIAGNOSIS AND TREATMENT Name [facility] Encounters Start End Encounter Admission Attending Care Care Encounter Source Date/Time Date/Time Type Type Clinicians Facility Department ID 2022-10-14 2022-10-[address] [facility] [id number] Univers 10:07:00 14:39:00 Melinda SMITH [id number] i [facility] [id number] [facility] [id number] [address] 2022-10-14 2022-10-14 Emergency [facility] [id number] Univers 10:07:00 14:39:00 MELINDA radha [facility] 2022-03-12 2022-03-12 Emergency X [facility] ERT [id number] Univers 05:15:00 06:41:00 CHRISTY garcia [facility] 2022-03-12 2022-03-12 [facility] [id number] Univers 05:15:00 06:41:00 Christy SMITH [id number] ity [facility] [id number] [facility] [id number] [address] 2022-02-20 2022-02-20 Emergency X [facility] ERT [id number] Univers 04:17:00 07:16:00 [facility]-20 2022-02-20 [facility] [id number] Univers 04:17:00 07:16:00 Christy SMITH [id number] [facility] [id number] [facility] [id number] [facility] 084 Branch 2021-02-03 2021-02-03 Outpatient R PINEDA, [facility] [id number] Univers 11:10:00 11:10:00 [facility] 2021-01-13 2021-01-13 Outpatient [facility] [id number] Univers 11:20:00 11:20:00 [facility] 2020-11-10 2020-11-10 [id number] Univers 08:20:00 08:20:00 KARLEY [facility] Results Test Description Test Time Test Comments Results Result Comments Source TROPONIN I 2022-02-20 10:16:22 Test Item Value Reference Range Interpretation Comme nts TROPONIN I (test code = 0.007 ng/mL See_Comment [Au tomated message] The [id number]) system which ge nerated this result tra [...] biotin. Lab Interpretation Normal (test code = 16680-0) [facility] [id number] 10:13:01 Test Item Value Reference Range Interpretation Comments NT-proBNP (test code 52 pg/mL See_Comment [Autom ated = 6702608227) message] The system which generated this result transmitted reference range : <=125. The reference range was not used to interpret this result as normal/abnormal . LOUISE (test code = LOUISE) Biotin has been reported to cause a negative bias, interpret results relative to patient's use of biotin. Lab Interpretation Normal (test code = 97792-8) [facility]. METABOLIC PANEL ([id number])2022-02-20 10:04:02 Test Item Value Reference Range Interpretation Comments NA (test code = 137 mmol/L 135-145 1701372823) K (test code = 3.6 mmol/L 3.5-5.0 9464383644) CL (test code = 99 mmol/L 98-108 7106983410) CO2 TOTAL (test code = 25 mmol/L 23-31 2225424896) AGAP (test code = 2-16 5012286057) BUN (test code = 6 mg/dL 7-23 L 5136079978) GLUCOSE (test code = 88 mg/dL 70-110 4009967100) CREATININE (test code = 0.55 mg/dL 0.60-1.25 L 8306422780) TOTAL BILI (test code = 0.8 mg/dL 0.1-1.6 8019346855) CALCIUM (test code = 8.9 mg/dL 8.6-10.6 9277621346) T PROTEIN (test code = 7.5 g/dL 6.3-8.2 3778829977) ALBUMIN (test code = 4.8 g/dL 3.5-5.0 0712367291) ALK PHOS (test code = 113 U/L 34-122 2383670093) ALTv (test code = 84 U/L 5-50 H 1742-6) AST(SGOT) (test code = 107 U/L 13-40 H 7261868219) eGFR (test code = mL/min/1.73m2 6373612484) LOUISE (test code = LOUISE) Association of [...] tests). Lab Interpretation Abnormal (test code = 97234-6) [facility] [id number] 10:03:21 Test Item Value Reference Range Interpretation Comments LIPASE (test code = 4071800767) 193 U/L 0-220 Lab Interpretation (test code = Normal 66846-9) [facility] WITH [id number] 09:39:17 Test Item Value Reference Range Interpretation Comments WBC (test code = See_Comment [Automated 6090-2) message] The sy stem which generated this result transmitted reference range : 4.20 - 10.70 10*3/?L. The reference range was not used to interpret this result as normal/abnormal . RBC (test code = See_Comment [Automated 539-8) message] The sy stem which generated this [...] RDW-SD (test code = 44.4 fL 38.5-51.6 17534-9) RDW-CV (test code = 11.9 % 12.1-15.4 L 788-0) PLT (test code = See_Comment [Automated 777-3) message] The sy stem which generated this result transmitted reference range : 150 - 328 10*3/ ?L. The reference r ernie was not used to interpret this result as normal/abnormal . MPV (test code = 9.2 fL 9.8-13.0 L 02533-0) NRBC/100 WBC (test See_Comment [Automat ed code = 6597642561) message] The system which generated this result transmitted reference range : 0.0 - 10.0 /100 WBCs. The refer ence range was not u sed to interpret th is result as normal/abnormal . NRBC x10^3 (test code <0.01 See_Comment [Auto mated = 5009644165) message] The s ystem which generated this result transmitted reference range : 10*3/?L. The reference range was not used to interpret this result as normal/abnormal . GRAN MAT (NEUT) % 69.9 % (test code = 770-8) IMM GRAN % (test code 1.50 % = 6996740368) LYMPH % (test code = 18.9 % 736-9) MONO % (test code = 7.0 % 5905-5) EOS % (test code = 1.9 % 713-8) BASO % (test code = 0.8 % 706-2) GRAN MAT x10^3(ANC) 7.15 10*3/uL 1.99-6.95 H (test code = 5514969403) IMM GRAN x10^3 (test 0.15 10*3/uL 0.00-0.06 H code = 0291161804) LYMPH x10^3 (test code 1.93 10*3/uL 1.09-3.23 = 731-0) MONO x10^3 (test code 0.72 10*3/uL 0.36-1.02 = 742-7) EOS x10^3 (test code = 0.19 10*3/uL 0.06-0.53 711-2) BASO x10^3 (test code 0.08 10*3/uL 0.01-0.09 = 704-7) Lab Interpretation Abnormal (test code = 41569-7) [facility]"
[2023-01-09 17:12] LABS: Absolute Lymphocytes (CBC) 0.8 K/uL (0.7-4.9); Hematocrit 41.6 % (39.6-49.0); Lymphocytes % 6.9 % (15.3-44.8); MCV 102.9 fL (80-100); MPV 6.7 fL (7.6-11.3); RBC Red Blood Cell Count 4.05 M/uL (4.33-5.43)
[2023-01-09 17:34] LABS: Magnesium 2.2 mg/dL (1.6-2.4); Potassium 3.5 mmol/L (3.5-5.1); Troponin High Sensitivity 4.2 pg/mL (<58.9)
--- NOTE | 2023-01-09 17:38 | EDPHYS ---
Physician Documentation [facility] Name: Randy Briones Age: 52 yrs Sex: Male : 1970 Arrival Date: 01/09/2023 Time: 16:45 Bed 2 Private MD: ED Physician Aren Benson HPI: 01/09 16:51 This 52 yrs old Male presents to ER via Unassigned with complaints of COPD ms3 Exacerbation, Chest Pain. 16:51 52-year-old male with past medical history of COPD, alcoholism, hypertension presents ms3 via [facility] for shortness of breath and chest pain that began last night. EMS states patient's twelve-lead was normal. They administered 1 sublingual nitroglycerin, 200 mL of normal saline, 100 mcg of fentanyl, 4 mg Zofran, albuterol/Atrovent. Patient admits to drinking a sixpack of beer 4 hours prior to arrival. Patient denies pain. Historical: - Allergies: 16:53 Lisinopril; iw - PMHx: 16:53 Alcoholism; Hypertension; iw - PSHx: 16:53 Amputation of left index finger; iw ROS: 16:51 Constitutional: Negative for fever, and chills. Cardiovascular: Negative for chest ms3 pain, and palpitations. 16:51 Cardiovascular: Positive for chest pain. 16:51 Respiratory: Positive for shortness of breath. 16:51 All other systems are negative. Exam: 16:51 Constitutional: This is a well developed, well nourished patient who is awake, alert, ms3 and in no acute distress. Head/Face: Normocephalic, atraumatic. Eyes: Pupils equal round and reactive to light, extra-ocular motions intact. Lids and lashes normal. Conjunctiva and sclera are non-icteric and not injected. Periorbital areas with no swelling, redness, or edema. Neck: Trachea midline, no cervical lymphadenopathy. Supple, full range of motion without nuchal rigidity, or vertebral point tenderness. No Meningismus. Chest/axilla: Normal chest wall appearance and motion. Nontender with no deformity. Cardiovascular: Regular rate and rhythm with a normal S1 and S2. No gallops, murmurs, or rubs. Normal PMI, no JVD. No pulse deficits. 16:51 Skin: Warm, dry with normal turgor. Normal color with no rashes, no lesions, and no evidence of cellulitis. MS/ Extremity: Pulses equal, no cyanosis. Neurovascular intact. Full, normal range of motion. 16:51 Respiratory: mild respiratory distress is noted, Breath sounds: wheezing: expiratory 18:04 ECG was reviewed by the Attending Physician. ms3 Vital Signs: 16:48 BP 132 / 69; Pulse 93; Resp 28 S; Pulse Ox 99% on Nebulizer Mask; iw 17:20 BP 105 / 61; Pulse 87; Resp 20; Pulse Ox 96% on 4 lpm NC; iw MDM: 16:45 Patient medically screened. ms3 16:51 Differential diagnosis: asthma, Chronic Obstructive Pulmonary Disease Myocardial ms3 Infarction pneumonia, Pneumothorax pulmonary edema. 17:38 ED course: Patient wishing to be discharged from the emergency department. Patient ms3 states his symptoms have improved. Patient is alert and oriented x4, in no apparent distress, nontoxic-appearing, ambulatory in emergency department. Patient to follow-up with his primary care physician in 2 to 3 days. Patient understands and agrees with plan. All questions were answered. Return precautions discussed include worsening symptoms, chest pain, lightheadedness, or any other concerns.. 17:38 Data reviewed: vital signs, nurses notes, lab test result(s), radiologic studies, and ms3 as a result, I will discharge patient. Consideration of Admission/Observation Escalation of care including admission/observation considered. Patient does not wish to be placed in the hospital. I considered the following discharge prescriptions or medication management in the emergency department. Independent interpretation of the following test(s) in the Emergency Department X-Ray: My interpretation is Chest x-ray image reviewed by me negative. Historians other than the Patient: EMS: [facility]. Counseling: I had a detailed discussion with the patient and/or guardian regarding: the historical points, exam findings, and any diagnostic results supporting the discharge/admit diagnosis, lab results, radiology results, the need for outpatient follow up, to return to the emergency department if symptoms worsen or persist or if there are any questions or concerns that arise at home. 01/09 16:46 Order name: Basic Metabolic Panel ms3 01/09 16:46 Order name: CBC with Diff ms3 01/09 16:46 Order name: Magnesium ms3 01/09 16:46 Order name: NT PRO-BNP ms3 01/09 16:46 Order name: Troponin HS ms3 01/09 16:46 Order name: XRAY Chest (1 view) ms3 01/09 16:46 Order name: EKG; Complete Time: 16:47 ms3 01/09 16:46 Order name: Cardiac monitoring; Complete Time: 17:20 ms3 01/09 16:46 Order name: EKG - Nurse/Tech; Complete Time: 17:20 ms3 01/09 16:46 Order name: IV Saline Lock; Complete Time: 17:20 ms3 01/09 16:46 Order name: Labs collected and sent; Complete Time: 17:20 ms3 01/09 16:46 Order name: O2 Per Protocol; Complete Time: 17:20 ms3 01/09 16:46 Order name: O2 Sat Monitoring; Complete Time: 17:20 ms3 01/09 17:15 Order name: CBC with Automated Diff; Complete Time: 17:36 EDMS 01/09 17:34 Order name: Basic Metabolic Panel; Complete Time: 17:36 EDMS 01/09 17:34 Order name: Troponin High Sensitivity; Complete Time: 17:36 EDMS 01/09 17:34 Order name: NT PRO-BNP; Complete Time: 17:36 EDMS 01/09 17:34 Order name: Magnesium; Complete Time: 17:36 EDMS EC:04 Rate is 86 beats/min. Rhythm is regular. QRS [place] is Normal. [place] interval is normal. QRS ms3 interval is normal. QT interval is normal. Clinical impression: NSR w/ Non-specific ST/T Changes. Interpreted by me. Reviewed by me. Administered Medications: No medications were administered Disposition Summary: 01/09/23 17:38 Discharge Ordered Location: Home ms3 Condition: Stable ms3 Diagnosis - COPD/ Chronic obstructive pulmonary disease, unspecified ms3 - Shortness of breath ms3 - Chest pain, unspecified ms3 Followup: ms3 - With: Edin Frances, DO - When: 2 - 3 days - Reason: Recheck today's complaints Discharge Instructions: - Discharge Summary Sheet ms3 - Nonspecific Chest Pain, Adult ms3 - Chronic Obstructive Pulmonary Disease ms3 Forms: - Medication Reconciliation Form ms3 - Thank You Letter ms3 - Antibiotic Education ms3 - Prescription Opioid Use ms3 Prescriptions: - Prednisone 20 mg Oral Tablet - take 2 tablets by ORAL route once daily for 5 days; 10 tablet; Refills: 0, ms3 Product Selection Permitted Signatures: Dispatcher MedHoRebeca Mike RN RN iw Aren Benson DO DO ms3
--- NOTE | 2023-01-09 17:38 | ER ---
Nurse's Notes [facility] Name: Randy Briones Age: 52 yrs Sex: Male : 1970 Arrival Date: 01/09/2023 Time: 16:45 Bed 2 Private MD: Diagnosis: COPD/ Chronic obstructive pulmonary disease, unspecified;Shortness of breath;Chest pain, unspecified Presentation: 01/09 16:48 Chief complaint: EMS states: pt left AMA from hospital yesterday, c/o diff breathing iw and chest pain today, O2 was in 70's at home, was in high 80's for EMS, pt states he normally uses 3L NC but has been increasing it to 5L, drank a 6pack of beer just [employer]. Coronavirus screen: Client presents with at least one sign or symptom that may indicate coronavirus-19. Ebola Screen: Patient negative for fever greater than or equal to 101.5 degrees Fahrenheit, and additional compatible Ebola Virus Disease symptoms Patient denies exposure to infectious person. Patient denies travel to an Ebola-affected area in the 21 days before illness onset. No symptoms or risks identified at this time. Risk Assessment: Do you want to hurt yourself or someone else? Patient reports no desire to harm self or others. Onset of symptoms was January 09, 2023. 16:48 Method Of Arrival: EMS: [facility] iw 16:48 Acuity: CANDACE 2 iw Historical: - Allergies: 16:53 Lisinopril; iw - PMHx: 16:53 Alcoholism; Hypertension; iw - PSHx: 16:53 Amputation of left index finger; iw Screenin:21 [facility] ED Fall Risk Assessment (Adult) History of falling in the last 3 months, iw including since admission No falls in past 3 months (0 pts). Abuse screen: Denies threats or abuse. Denies injuries from another. Nutritional screening: No deficits noted. Tuberculosis screening: No symptoms or risk factors identified. Vital Signs: 16:48 BP 132 / 69; Pulse 93; Resp 28 S; Pulse Ox 99% on Nebulizer Mask; iw 17:20 BP 105 / 61; Pulse 87; Resp 20; Pulse Ox 96% on 4 lpm NC; iw ED Course: 16:45 Patient arrived in ED. ms3 16:45 Aren Benson DO is Attending Physician. ms3 16:53 Triage completed. iw 17:20 Rebeca Lizama, RN is Primary Nurse. iw 17:21 Maintain EMS IV. Dressing intact. Site clean \T\ dry. Gauge \T\ site: 20 RAC. Oxygen iw administration via nasal cannula \T\ 4L/min. 17:21 Patient has correct armband on for positive identification. Placed in gown. Client iw placed on continuous cardiac and pulse oximetry monitoring. NIBP monitoring applied. 17:36 Edin Frances DO is Referral Physician. ms3 Administered Medications: No medications were administered Outcome: 17:38 Discharge ordered by MD. ms3 17:53 Patient left the ED. iw Signatures: Rebeca Lizama RN RN iw Aren Benson DO DO ms3
--- NOTE | 2023-01-12 16:48 | EKG ---
Test Date: 2023-01-09 Test Time: 16:58:08 Electric Relay Tester: RUFINA MEASUREMENT RESULTS: Intervals: Rate: 86 DC: 140 QRSD: 106 QT: 394 QTc: 471 [place]: P: 63 DC: 140 QRS: 79 T: 66 INTERPRETIVE STATEMENTS: Normal sinus rhythm Prolonged QT Abnormal ECG Compared to ECG 01/08/2023 22:41:47 Prolonged QT interval now present Incomplete right bundle-branch block no longer present Electronically Signed On 01-12-23 16:40:03 CARTON FOLDER by Rosalino Albert
== END 2023-01-09 17:53 | disposition home or self-care (01) ==
LOC: ER 16:43
DX: R07.89 Other chest pain (principal); J44.9 Chronic obstructive pulmonary disease, unspecified; R06.02 Shortness of breath; I10 Essential (primary) hypertension; F10.20 Alcohol dependence, uncomplicated
CPT/HCPCS: 36415; 80048; 83735; 83880; 84484; 85025; 93005; 99284

== ENCOUNTER → 2023-01-10 | Emergency (ER) | payer OTHER ==
[~2023-01-10] MED LIST changes: +ACETAMINOPHEN 500 MG TAB PO PRN; +ALBUTEROL 2.5 MG/3 ML NEB SOL NEB PRN; +ALBUTEROL 2.5 MG/3 ML NEB SOL ONE; +AMLODIPINE 10 MG TAB PO SCH; +AMOX/K CLAV 875 MG TAB PO SCH; +ARFORMOTEROL TARTRATE 15 MCG/2 ML VIAL.NEB NEB SCH; +ASPIRIN 81 MG CHEWABLE TABLET ONE; +AZITHROMYCIN 500 MG INJ IVPB ONE; +CEFTRIAXONE 2000 MG/VIAL ONE; -DIAZEPAM 10 MG/2 ML INJ SYRINGE ONE; -FOLIC ACID 1 MG, MULTIVITAMINS INJ 10 ML, THIAMINE HCL 100 MG in NA CHLORIDE 0.9% 1,000 ML IV SCH; -FOLIC ACID 5 MG/ML VIAL ONE; +GABAPENTIN 100 MG CAP PO SCH; +IPRATROPIUM BROM 0.5MG/2.5ML NEB SCH; -LEVALBUTEROL 1.25 MG/3 ML NEB ONE; -LORazepam 2 MG/ML VIAL ONE; +METHYLPREDNISOLONE 40 MG INJ IV SCH; -METOPROLOL TAR 50 MG TAB ONE; +METOPROLOL TAR 50 MG TAB PO SCH; +MORPHINE 4 MG/ML SYR ONE; -MULTIVITAMINS 10 ML VIAL (INJ) IV ONE; -NA CHLORIDE 0.9% 0 ML IV ONE; -NA CHLORIDE 0.9% 1,000 ML ONE; +NA CHLORIDE 0.9% 100 ML ONE; +NA CHLORIDE 0.9% 250 ML ONE; +ONDANSETRON 4 MG/2 ML VIAL ONE; -THIAMINE 200 MG/2 ML INJ ONE; +THIAMINE HCL 100 MG TABLET ONE; +THIAMINE HCL 100 MG TABLET PO SCH; +chlordiazePOXIDE HCl 25 MG CAP PO PRN; -chlordiazePOXIDE HCl 5 MG CAP PO ONE
--- OUTSIDE RECORDS SUMMARY | 2023-01-10 14:56 | XMS REPORT | Continuity of Care Document ---
:1970 Author Organization [facility] t Address [address] [facility]. [address] [place] [address] Care Team Providers Name Role Phone LOPEZGIRISH [...] y of on of on of 00:00: [place] chronic chronic 00 Medical obstructiv obstructiv Br anch e e pulmonary pulmonary disease disease (COPD) (COPD) Obesity Obesity Disease Active 2018 Univers (BMI (BMI 5-16 ity of 30-39.9) 30-39.9) 00:00: [place] [address] Medical Branch Allergies, Adverse Reactions, Alerts Allergy Allergy Status Severity Reaction(s) Onset Inactive Treating Comm ents Source Name Type Date Date Clinician Lisinopr Propensi Active Anaphylaxis 2018-0 U nivers il ty to 5-16 ity of adverse 00:00: [place] reaction 00 Medical s Branch LISINOPR DRUG Active Anaphylaxis Uni vers [place] INGREDI 5-16 ity of 00:00: [address] Social History Social Habit Start Date Stop Date Quantity Comments Source History of Smokes tobacco University of tobacco use daily [facility] Exposure to 2022-10-04 2022-10-14 Not sure [facility] SARS-CoV-2 00:00:00 10:25:00 [facility] [place] Alcohol intake 2022-03-09 2022-03-09 4.29 /d University 00:00:00 00:00:00 [facility] Tobacco use and 2018-03-24 2018-03-24 User of smokeless Un iversity of exposure 00:00:00 00:00:00 tobacco [facility] Tobacco Comment 2018-03-24 2018-03-24 trying to quit Unive rsity of 00:00:00 00:00:00 [facility] Sex Ass[birth year] At [birth year] Universit y of 00:00:00 00:00:00 [facility] Smoking Status Start Date Stop Date Source Smokes tobacco daily 2018-03-24 00:00:00 Univers ity of [facility] Medications Ordered Filled Start Stop Current Ordering Indication Dosage Frequency Signature Comments Components Source Medication Medication Date Date Medication? Clinician (SIG) Name Name iopamidol 2021-11- No [id number] 70mL 70 mL, U nivers (ISOVUE 12-15- Intravenou ity o f 370-500 mL) 18:30: 18:30 s, ONCE, 1 [place] injection 00 :00 dose, On Medica l 70 mL [facility] 10/14/22 at 1230, Routine methylpredn 2021-11 Yes 125mg 125 mg, Un odalys isolone sod 12-15 Intravenou it y of succ 18:00: s, Q6H, [place] (SOLU-MEDRO 00 First dose Me dical L) on [facility] injection 10/14/22 at 125 mg 1200, Until Discontinu ed, Routine furosemide 2021-11- No 40mg 40 mg, IV U nivers (LASIX) 12-15 12- Push, ity of injection 17:45: 16:39 ONCE, 1 [place] 40 [place] 00 :00 dose, On Medical [facility] 10/14/22 at 1145, LAURYN ipratropium [...] 10/14/22 at 1045, Routine levoFLOXaci 2021-11 Yes [id number] 750mg Take 1 Univers n 750 mg [...] of succ 11:45: 10:43 s, ONCE, 1 [place] (SOLU-MEDRO 00 :00 dose, On Medi keo [...] 0530, solution 3 Routine mL albuterol Yes [id number] 2{puff} Inhale 2 Univers 90 4-14 Puffs ity of mcg/actuati 00:00: every 4 [place] as on inhaler 00 (four) Medical hours as Branch needed for Wheezing or Shortness of Breath. albuterol Yes [id number] 2.5mg Inhale 3 Univers 2.5 mg /3 4-14 mL every 4 ity of mL (0.083 00:00: (four) [place] %) 00 hours. May Medical nebulizer also Branch solution nebulize one extra every 6 hours. budesonide- Yes [id number] 2{puff} Inhale 2 Univers formoteroL 4-14 Puffs 2 ity of 160-4.5 00:00: (two) [place] mcg/actuati 00 times Medical on inhaler daily. Branch triamterene Yes [id number] 1{tbl} Take 1 Univers -hydrochlor 4-14 tablet by ity of othiazid 00:00: mouth [place] 37.5-25 mg 00 daily. Medical tablet Branch chlordiazeP Yes [id number] 25mg Take 1 Univers OXIDE 25 mg 4-14 capsule by it y of capsule 00:00: mouth [place] 00 every 6 Medical (six) Branch hours as needed for Anxiety, Agitation, Heart Rate => 100 or Detox. predniSONE Yes [id number] TAKE ONE Univers 10 mg 4-14 TABLET BY ity of tablet 00:00: MOUTH [place] 00 DAILY Medical Branch albuterol Yes [id number] 2{puff} Inhale 2 Univers 90 4-14 Puffs ity of mcg/actuati 00:00: every 4 [place] as on inhaler 00 (four) Medical hours as Branch needed for Wheezing or Shortness of Breath. albuterol Yes [id number] 2.5mg Inhale 3 Univers 2.5 mg /3 4-14 mL every 4 ity of mL (0.083 00:00: (four) [place] %) 00 hours. May Medical nebulizer also Branch solution nebulize one extra every 6 hours. budesonide- Yes [id number] 2{puff} Inhale 2 Univers formoteroL 4-14 Puffs 2 ity of 160-4.5 00:00: (two) [place] mcg/actuati 00 times Medical on inhaler daily. Branch triamterene Yes [id number] 1{tbl} Take 1 Univers -hydrochlor 4-14 tablet by ity of othiazid 00:00: mouth [place] 37.5-25 mg 00 daily. Medical tablet Branch chlordiazeP Yes [id number] 25mg Take 1 Univers OXIDE 25 mg 4-14 capsule by it y of capsule 00:00: mouth [place] 00 every 6 Medical (six) Branch hours as needed for Anxiety, Agitation, Heart Rate => 100 or Detox. predniSONE Yes [id number] TAKE ONE Univers 10 mg 4-14 TABLET BY ity of tablet 00:00: MOUTH [place] 00 DAILY Medical Branch albuterol Yes [id number] 2{puff} Inhale 2 Univers 90 4-14 Puffs ity of mcg/actuati 00:00: every 4 [place] as on inhaler 00 (four) Medical hours as Branch needed for Wheezing or Shortness of Breath. albuterol Yes [id number] 2.5mg Inhale 3 Univers 2.5 mg /3 4-14 mL every 4 ity of mL (0.083 00:00: (four) [place] %) 00 hours. May Medical nebulizer also Branch solution nebulize one extra every 6 hours. budesonide- Yes [id number] 2{puff} Inhale 2 Univers formoteroL 4-14 Puffs 2 ity of 160-4.5 00:00: (two) [place] mcg/actuati 00 times Medical on inhaler daily. Branch triamterene Yes [id number] 1{tbl} Take 1 Univers -hydrochlor 4-14 tablet by ity of othiazid 00:00: mouth [place] 37.5-25 mg 00 daily. Medical tablet Branch chlordiazeP Yes [id number] 25mg Take 1 Univers OXIDE 25 mg 4-14 capsule by it y of capsule 00:00: mouth [place] 00 every 6 Medical (six) Branch hours as needed for Anxiety, Agitation, Heart Rate => 100 or Detox. predniSONE Yes [id number] TAKE ONE Univers 10 mg 4-14 TABLET [...] by ity of capsule 16:32: mouth 2 [place] 14 (two) Medical times [place] daily as needed (MSK pain). foLIC acid Yes 1mg Take 1 mg Un odalys 1 mg tablet 5-18 by mouth ity of 16:32: daily. [place] 14 Medical Branch triamterene 2017-0 Yes 1{capsu Take 1 U nivers -hydrochlor 5-18 le} capsule by it y of othiazide 16:32: mouth [place] 37.5-25 mg 14 every Medical per capsule morning. Bran ch amLODIPine 2018-0 Yes 10mg Take 10 mg U nivers 10 mg 5-18 by mouth ity of tablet 16:32: at [place] 14 bedtime. Medical Branch gabapentin 2018-0 Yes 100mg Take 100 Un odalys 100 mg 5-18 mg by ity of capsule 16:32: mouth 2 [place] 14 (two) Medical times Branch daily as needed (MSK pain). foLIC acid 2018-0 Yes 1mg Take 1 mg Un odalys 1 mg tablet 5-18 by mouth ity of 16:32: daily. [place] [address] Medical Branch triamterene 0 Yes 1{capsu Take 1 U nivers -hydrochlor 5-18 le} capsule by it y of othiazide 16:32: mouth [place] 37.5-25 mg 14 every Medical per capsule morning. Bran ch amLODIPine 2018-0 Yes 10mg Take 10 mg U nivers 10 mg 5-18 by mouth ity of tablet 16:32: at [place] [address] bedtime. Medical Branch gabapentin 2018-0 Yes 100mg Take 100 Un odalys 100 mg 5-18 mg by ity of capsule 16:32: mouth 2 [place] 14 (two) Medical times [place] daily as needed (MSK pain). foLIC acid 2018-0 Yes 1mg Take 1 mg Un odalys 1 mg tablet 5-18 by mouth ity of 16:32: daily. [address] triamterene 2017-0 Yes 1{capsu Take 1 U nivers -hydrochlor 5-18 le} capsule by it y of othiazide 16:32: mouth [place] 37.5-25 mg 14 every Medical per capsule morning. Bran ch amLODIPine 2017-0 Yes 10mg Take 10 mg U nivers 10 mg 5-18 by mouth ity of tablet 16:32: at [place] 14 bedtime. Medical Branch budesonide- 2017-0 Yes [...] Immunizations Ordered Filled Immunization Date Status Comments [facility] e Immunization Name Name SARS-COV-2 COVID-19 2021-02-03 Completed Unive rsity of PFIZER VACCINE 00:00:00 [facility] SARS-COV-2 COVID-19 2021-02-03 Completed Unive rsity of PFIZER VACCINE 00:00:00 [facility] SARS-COV-2 COVID-19 2021-02-03 Completed Unive rsity of PFIZER VACCINE 00:00:00 [facility] SARS-COV-2 COVID-19 2021-01-13 Completed Unive rsity of PFIZER VACCINE 00:00:00 [facility] SARS-COV-2 COVID-19 2021-01-13 Completed Unive rsity of PFIZER VACCINE 00:00:00 [facility] SARS-COV-2 COVID-19 2021-01-13 Completed Unive rsity of PFIZER VACCINE 00:00:00 [facility] Pneumococcal 2018-03-26 Completed University o f Polysaccharide, 00:00:00 [facility] ical PPSV23 (PNEUMOVAX) [place] Influenza Virus 2018-03-26 Completed Universit y of Vaccine [place] IM 3+ 00:00:00 [facility] Pneumococcal 2018-03-26 Completed University o f Polysaccharide, 00:00:00 [place] Med ical PPSV23 (PNEUMOVAX) [place] Influenza Virus 2018-03-26 Completed Universit y of Vaccine [place] IM 3+ 00:00:00 [facility] Pneumococcal 2018-03-26 Completed University o f Polysaccharide, 00:00:00 [place] Med ical PPSV23 (PNEUMOVAX) [place] Influenza Virus 2018-03-26 Completed Universit y of Vaccine [place] IM 3+ 00:00:00 [facility] Vital Signs Vital Name Observation Time Observation Value Comments Source Systolic blood 2022-10-14 19:43:00 111 mm[Hg] Univer sity of pressure [facility] Diastolic blood 2022-10-14 19:43:00 74 mm[Hg] Unive rsity of pressure [place] [facility] Heart rate 2022-10-14 19:43:00 98 /min Universi ty [facility] [place] [facility] Body temperature 2022-10-14 19:43:00 36.39 Debbie Univ ersity of [place] [facility] Respiratory rate 2022-10-14 19:43:00 22 /min Univ ersity of [place] [facility] Oxygen saturation in 2022-10-14 19:43:00 94 /min University of Arterial blood by [facility] keo Pulse oximetry Branch Body height 2022-10-14 16:13:00 162.6 cm Universi ty [facility] [place] [facility] Body weight 2022-10-14 16:13:00 81.647 kg Universi ty [facility] [place] [facility] BMI 2022-10-14 16:13:00 30.90 kg/m2 Universi ty [facility] [place] [facility] Systolic blood 2022-03-12 10:13:00 119 mm[Hg] Univer sity of pressure [place] [facility] Diastolic blood 2022-03-12 10:13:00 75 mm[Hg] Unive rsity of pressure [place] [facility] Heart rate 2022-03-12 10:13:00 105 /min Universi ty [facility] [place] [facility] Body temperature 2022-03-12 10:13:00 37.28 Debbie Univ ers[facility] [place] [facility] Respiratory rate 2022-03-12 10:13:00 19 /min Univ [facility] [place] [facility] Body height 2022-03-12 10:13:00 162.6 cm [facility] [place] [facility] Body weight 2022-03-12 10:13:00 99.791 kg Universi ty [facility] [place] [facility] BMI 2022-03-12 10:13:00 37.76 kg/m2 [facility]i ty [facility] [place] [facility] Oxygen saturation in 2022-03-12 10:13:00 96 /min University of Arterial blood by [facility] keo Pulse oximetry Branch Systolic blood 2022-02-20 11:57:00 155 mm[Hg] Univer sity of pressure [place] [facility] Diastolic blood 2022-02-20 11:57:00 88 mm[Hg] Unive rsity of pressure [place] [facility] Heart rate 2022-02-20 11:57:00 105 /min Universi ty [facility] [place] [facility] Respiratory rate 2022-02-20 11:57:00 18 /min [facility] Oxygen saturation in 2022-02-20 11:57:00 100 /min [facility] Arterial blood by [facility] Pulse oximetry Branch Body temperature 2022-02-20 09:25:00 37 Debbie [facility] Body height 2022-02-20 09:25:00 162.6 cm [facility] Body weight 2022-02-20 09:25:00 96.163 kg [facility] BMI 2022-02-20 09:25:00 36.39 kg/m2 [facility] Procedures Procedure Date / Time Performing Clinician Source Performed CT ABDOMEN PELVIS W 2022-10-14 17:33:00 Melinda Maciel [facility] CONTRAST [facility] XR CHEST 1 VW 2022-10-14 17:10:37 Singer [facility] TROPONIN I 2022-10-14 16:37:00 Singer [facility] COMP. METABOLIC PANEL 2022-10-14 16:37:00 Melinda Maciel [facility] ([id number]) [facility] CBC WITH DIFF 2022-10-14 16:37:00 Singer [facility] PROTHROMBIN TIME / INR 2022-10-14 16:37:00 Melinda Maciel [facility] URINALYSIS 2022-10-14 16:37:00 Singer [facility] N-TERMINAL PRO-BNP 2022-10-14 16:37:00 Melinda Maciel [facility] CONSENT/REFUSAL FOR 2022-10-14 15:56:36 Doctor Unassigned, No Un [facility] [place] DIAGNOSIS AND TREATMENT Name Medical Branch CONSENT/REFUSAL FOR 2022-03-12 10:03:12 Doctor Unassigned, No [facility] Name Medical Branch XR CHEST 1 VW 2022-02-20 09:59:00 Christy Shaw [facility] LIPASE 2022-02-20 09:30:00 Christy Shaw [facility] TROPONIN I 2022-02-20 09:30:00 Christy Shaw [facility] COMP. METABOLIC PANEL 2022-02-20 09:30:00 Christy Shaw [facility] ([id number]) [facility] CBC WITH DIFF 2022-02-20 09:30:00 Christy Shaw [facility] N-TERMINAL PRO-BNP 2022-02-20 09:30:00 Christy Shaw [facility] NOTICE OF PRIVACY 2022-02-20 09:15:02 Doctor Unassigned, No Univ [facility] PRACTICES Name [facility] Branch CONSENT/REFUSAL FOR 2022-02-20 09:14:47 Doctor Unassigned, No [facility] DIAGNOSIS AND TREATMENT Name [facility] Encounters Start End Encounter Admission Attending Care Care Encounter Source Date/Time Date/Time Type Type Clinicians Facility Department ID 2022-10-14 2022-10-14 Emergency [facility] [id number] Univers 10:07:00 14:39:00 Melinda SMITH [id number] i ty [facility] [id number] [facility] [id number] [address] 2022-10-14 2022-10-14 Emergency [facility] ERT [id number] Univers 10:07:00 14:39:00 MELINDA radha [facility] 2022-03-12 2022-03-12 Emergency [facility] [id number] Univers 05:15:00 06:41:00 CHRISTY garcia [facility] 2022-03-12 2022-03-12 [facility] [id number] Univers 05:15:00 06:41:00 Christy SMITH [id number] ity [facility] [id number] [facility] [id number] [address] 2022-02-20 2022-02-20 Emergency [facility] [id number] Univers 04:17:00 07:16:00 [facility] [place] [facility] 2022-02-20 2022-02-20 [facility] [id number] Univers 04:17:00 07:16:00 Christy SMITH [id number] [facility] [id number] [facility] [id number] [facility] 084 Branch 2021-02-03 2021-02-03 Outpatient R PINEDA[facility] [id number] Univers 11:10:00 11:10:00 DENISE [facility] [place] [facility] 2021-01-13 2021-01-13 Outpatient [facility] [id number] Univers 11:20:00 11:20:00 [facility] 2020-11-10 2020-11-10 [facility] [id number] Univers 08:20:00 08:20:00 KARLEY [facility] Results Test Description Test Time Test Comments Results Result Comments Source TROPONIN I 2022-02-20 10:16:22 Test Item Value Reference Range Interpretation Comme nts TROPONIN I (test code = 0.007 ng/mL See_Comment [Au tomated message] The [id number]) system which ge nerated this result tra [...] biotin. Lab Interpretation Normal (test code = 21308-7) [facility] [id number] 10:13:01 Test Item Value Reference Range Interpretation Comments NT-proBNP (test code 52 pg/mL See_Comment [Autom ated = 4521221804) message] The system which generated this result transmitted reference range : <=125. The reference range was not used to interpret this result as normal/abnormal . LOUISE (test code = LOUISE) Biotin has been reported to cause a negative bias, interpret results relative to patient's use of biotin. Lab Interpretation Normal (test code = 22010-8) [facility]. METABOLIC PANEL ([id number])2022-02-20 10:04:02 Test Item Value Reference Range Interpretation Comments NA (test code = 137 mmol/L 135-145 9540088624) K (test code = 3.6 mmol/L 3.5-5.0 7490425908) CL (test code = 99 mmol/L 98-108 0752244378) CO2 TOTAL (test code = 25 mmol/L 23-31 0729141514) AGAP (test code = 2-16 7559576975) BUN (test code = 6 mg/dL 7-23 L 3467362383) GLUCOSE (test code = 88 mg/dL 70-110 1176783666) CREATININE (test code = 0.55 mg/dL 0.60-1.25 L 1303218754) TOTAL BILI (test code = 0.8 mg/dL 0.1-1.3 0086727345) CALCIUM (test code = 8.9 mg/dL 8.6-10.6 2366004210) T PROTEIN (test code = 7.5 g/dL 6.3-8.2 1752215087) ALBUMIN (test code = 4.8 g/dL 3.5-5.0 6610878906) ALK PHOS (test code = 113 U/L 34-122 6690686867) ALTv (test code = 84 U/L 5-50 H 1742-6) AST(SGOT) (test code = 107 U/L 13-40 H 4993545353) eGFR (test code = mL/min/1.73m2 3401458524) LOUISE (test code = LOUISE) Association of [...] tests). Lab Interpretation Abnormal (test code = 51924-6) [facility] [id number] 10:03:21 Test Item Value Reference Range Interpretation Comments LIPASE (test code = 0493390450) 193 U/L 0-220 Lab Interpretation (test code = Normal 63929-2) [facility] [id number] 09:39:17 Test Item Value Reference Range Interpretation Comments WBC (test code = See_Comment [Automated 9190-2) message] The sy stem which generated this result transmitted reference range : 4.20 - 10.70 10*3/?L. The reference range was not used to interpret this result as normal/abnormal . RBC (test code = See_Comment [Automated 009-8) message] The sy stem which generated this [...] RDW-SD (test code = 44.4 fL 38.5-51.6 11410-9) RDW-CV (test code = 11.9 % 12.1-15.4 L 788-0) PLT (test code = See_Comment [Automated 777-3) message] The sy stem which generated this result transmitted reference range : 150 - 328 10*3/ ?L. The reference r ernie was not used to interpret this result as normal/abnormal . MPV (test code = 9.2 fL 9.8-13.0 L 88964-8) NRBC/100 WBC (test See_Comment [Automat ed code = 8057210125) message] The system which generated this result transmitted reference range : 0.0 - 10.0 /100 WBCs. The refer ence range was not u sed to interpret th is result as normal/abnormal . NRBC x10^3 (test code <0.01 See_Comment [Auto mated = 8283256162) message] The s ystem which generated this result transmitted reference range : 10*3/?L. The reference range was not used to interpret this result as normal/abnormal . GRAN MAT (NEUT) % 69.9 % (test code = 770-8) IMM GRAN % (test code 1.50 % = 9326874777) LYMPH % (test code = 18.9 % 736-9) MONO % (test code = 7.0 % 5905-5) EOS % (test code = 1.9 % 713-8) BASO % (test code = 0.8 % 706-2) GRAN MAT x10^3(ANC) 7.15 10*3/uL 1.99-6.95 H (test code = 5216597178) IMM GRAN x10^3 (test 0.15 10*3/uL 0.00-0.06 H code = 0853003150) LYMPH x10^3 (test code 1.93 10*3/uL 1.09-3.23 = 731-0) MONO x10^3 (test code 0.72 10*3/uL 0.36-1.02 = 742-7) EOS x10^3 (test code = 0.19 10*3/uL 0.06-0.53 711-2) BASO x10^3 (test code 0.08 10*3/uL 0.01-0.09 = 704-7) Lab Interpretation Abnormal (test code = 78832-5) [facility]"
[2023-01-10 15:46] LABS: Absolute Lymphocytes (CBC) 1.3 K/uL (0.7-4.9); Lymphocytes % 17.4 % (15.3-44.8); MCV 102.5 fL (80-100); MPV 6.6 fL (7.6-11.3)
--- NOTE | 2023-01-10 15:47 | P.HP ---
Certification for Inpatient Patient admitted to: Inpatient With expected LOS: >2 Midnights Practitioner: I am a practitioner with admitting privileges, knowledge of patient current condition, hospital course, and medical plan of care. Services: Services provided to patient in accordance with Admission requirements found in Title 42 Section 412.3 of the Code of Federal Regulations Patient History Date of Service: 01/10/23 Reason for admission: COPD exacerbation/Alcohol abuse Allergies lisinopril Allergy (Verified 04/26/22 13:11) Shortness of breath BC powder Allergy (Mild, Uncoded 04/26/22 13:10) Hives Lisinopril Allergy (Mild, Uncoded 04/26/22 13:10) Shortness of breath Home Medications: Amlodipine [Norvasc*] 10 mg PO DAILY 01/03/21 Metoprolol Tartrate [Lopressor*] 50 mg PO BID #60 tab 04/28/22 predniSONE [Prednisone*] 10 mg PO DAILY #30 tab 04/28/22 Aspirin Chewable [Aspirin Chewable*] 81 mg PO DAILY #30 tab.chew 11/24/22 Pantoprazole Sodium 40 mg PO BID #60 tab 11/24/22 Albuterol Sulfate [Albuterol Sulfate 0.083% Neb Soln] 2.5 mg IH QID 30 Days #300 ml 01/09/23 Amox/Clavulanate [Augmentin 500-125 mg Tab*] 500 mg PO BID 7 Days #21 tab 01/09/23 Fluticasone/Umeclidin/Vilanter [Trelegy Ellipta 100-62.5-25] 1 each IH DAILY 30 Days #30 aero 01/09/23 - Past Medical/Surgical History Diabetic: No -: Hypertension -: COPD on chronic steroids/home O2 -: Tobacco abuse -: Alcohol abuse -: GERD -: Obesity -: 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 - Family History Mother -: Diabetes, Cancer Notes: colon cancer Father -: Lung disease Notes: COPD - Social History Alcohol use: Yes CD- Drugs: No Caffeine use: No Assessment and Plan - Problems (Diagnosis) (1) COPD exacerbation Onset Date: 09/07/18 Current Visit: No Status: Acute Plan: Age 52 Aw COPD exacerbation. Recently left AMA (2) Alcohol abuse Onset Date: 11/15/18 Current Visit: No Status: Acute - Advance Directives Does patient have a Living Will: No Does patient have a Durable POA for Healthcare: No
[2023-01-10 16:06] LABS: Magnesium 2.2 mg/dL (1.6-2.4); Potassium 3.9 mmol/L (3.5-5.1); Troponin High Sensitivity 4.7 pg/mL (<58.9)
--- NOTE | 2023-01-10 16:09 | ER ---
Nurse's Notes [facility] Name: Randy Briones Age: 52 yrs Sex: Male : 1970 Arrival Date: 01/10/2023 Time: 14:56 Bed 4 Private MD: Diagnosis: COPD/ Chronic obstructive pulmonary disease with (acute) exacerbation;Respiratory failure, unspecified with hypoxia Presentation: 01/10 15:01 Chief complaint: EMS states: Toned out for shortness of breath, 89% on room air, placed jl7 on 6 lpm NC O2 up to 95%. Pt has has 12 pack of beer today. Coronavirus screen: At this time, the client does not indicate any symptoms associated with coronavirus-19. Ebola Screen: No symptoms or risks identified at this time. Initial Sepsis Screen: Does the patient meet any 2 criteria? No. Patient's initial sepsis screen is negative. Does the patient have a suspected source of infection? No. Patient's initial sepsis screen is negative. Risk Assessment: Do you want to hurt yourself or someone else? Patient reports no desire to harm self or others. Onset of symptoms is unknown. 15:01 Method Of Arrival: EMS: [facility] jl7 15:01 Acuity: CANDACE 2 jl7 Triage Assessment: 15:06 General: Appears in no apparent distress. uncomfortable, Behavior is cooperative, jl7 anxious. Pain: Complains of pain in chest. Derm: Skin is dry, Skin is red, Skin temperature is warm. Historical: - Allergies: 15:06 Lisinopril; jl7 - PMHx: 15:06 Alcoholism; COPD; Hypertension; jl7 - Immunization history:: Adult Immunizations unknown. - Social history:: Smoking status: Patient reports the use of cigarette tobacco products, smokes two packs cigarettes per day. Patient uses alcohol, on a daily basis. patient/guardian reports chronic longstanding heavy alcohol consumption. 12 pack/day. Screenin:[address] [facility] ED Fall Risk Assessment (Adult) History of falling in the last 3 months, vg1 including since admission No falls in past 3 months (0 pts) Confusion or Disorientation No (0 pts) Intoxicated or Sedated No (0 pts) Impaired Gait No (0 pts) Mobility Assist Device Used No (0 pt) Altered Elimination No (0 pt) Score/Fall Risk Level 0 - 2 = Low Risk. Abuse screen: Denies threats or abuse. Denies injuries from another. Nutritional screening: No deficits noted. Tuberculosis screening: No symptoms or risk factors identified. Assessment: 15:59 General: Appears in no apparent distress. uncomfortable, Behavior is calm, cooperative. vg1 Pain: Complains of pain in chest Pain currently is 8 out of 10 on a pain scale. Neuro: Level of Consciousness is awake, alert, obeys commands, Oriented to person, place, time, situation. Cardiovascular: Patient's skin is warm and dry. Respiratory: Airway is patent Respiratory effort is even, labored, Respiratory pattern is. GI: No signs and/or symptoms were reported involving the gastrointestinal system. : No signs and/or symptoms were reported regarding the genitourinary system. EENT: No signs and/or symptoms were reported regarding the EENT system. Derm: Skin is pink, warm \\T\\ dry. Musculoskeletal: Circulation, motion, and sensation intact. 17:43 Reassessment: Pt seen walking out of ER, attempted to stop pt, pt turned and stated jl7 "I'm just leaving. I took out my own IV. I only have a couple miles to walk." Pt refusing to return to ED. Vital Signs: 15:01 BP 140 / 86; Pulse 97; Resp 20; Temp 98.9; Pulse Ox 93% ; Weight 81.65 kg; Height 5 ft. jl7 4 in. (162.56 cm); Pain 0/10; 16:03 BP 127 / 82; Pulse 86; Resp 14; Pulse Ox 96% on 2 lpm NC; vg1 15:01 Body Mass Index 30.90 (81.65 kg, 162.56 cm) jl7 ED Course: 14:56 Patient arrived in ED. eb 15:00 Imani Frances MD is Attending Physician. sp3 15:06 Triage completed. jl7 15:06 Arm band placed on right wrist. jl7 15:10 Cait Gomez, RN is Primary Nurse. vg1 15:40 Basic Metabolic Panel Sent. bc6 15:40 CBC with Diff Sent. bc6 15:40 Magnesium Sent. bc6 15:40 NT PRO-BNP Sent. bc6 15:40 Troponin HS Sent. bc6 15:59 Patient has correct armband on for positive identification. Bed in low position. Call vg1 light in reach. Side rails up X 1. Client placed on continuous cardiac and pulse oximetry monitoring. NIBP monitoring applied. 15:59 Maintain EMS IV. Dressing intact. Good blood return noted. Site clean \\T\\ dry. Gauge \\T\\ vg 1 site: 20 RAC. 16:08 Mayur Martinez MD is Hospitalizing Provider. sp3 17:45 No provider procedures requiring assistance completed. IV discontinued, IV dc'd by pt. [id number] Administered Medications: 15:48 Drug: DuoNeb (albuterol 2.5 mg, ipratropium 0.5 mg) (3:1) (2.5 mg - 0.5 mg) 3 ml Route: kr3 Nebulizer; 16:32 Follow up: Response: No adverse reaction vg1 15:52 Drug: Rocephin (cefTRIAXone) 100 mg/kg Route: IVPB; Site: right antecubital; vg1 16:32 Follow up: IV Status: Completed infusion; IV Intake: 100ml vg1 16:31 Drug: Zithromax (azithromycin) 500 mg Route: IVPB; Infused Over: 1 hrs; Site: right jl7 antecubital; 16:51 Drug: TORadol (ketorolac) 30 mg Route: IVP; Site: right antecubital; vg1 Medication: 15:59 VIS not applicable for this client. vg1 Intake: 16:32 IV: 100ml; Total: 100ml. vg1 Outcome: 16:08 Decision to Hospitalize by Provider. sp3 17:46 Patient left the ED. jlEda Signatures: Kelsie Ocampo RN RN jl7 Marylin Covarrubias Victoria RN RN vg1 Imani Frances MD MD sp3 Jackie Costa, BRIGETTE RN kr3 Klarissa Batista 6
--- NOTE | 2023-01-10 16:09 | EDPHYS ---
Physician Documentation [facility] Name: Randy Briones Age: 52 yrs Sex: Male : 1970 Arrival Date: 01/10/2023 Time: 14:56 Bed 4 Private MD: ED Physician Imani Frances HPI: 01/10 15:27 This 52 yrs old Male presents to ER via EMS with complaints of SOB. 3 15:27 52-year-old male with history of COPD, alcoholism, hypertension presents again to the [facility] ED today for chief complaint dyspnea and cough. Patient has been seen multiple times in the ED over this past week and 2 days ago left AMA from the hospital while hypoxic stating he "just wanted to go home". Today he states that he wants to stay and will not leave AMA. He denies any chest pain, back pain, abdominal pain, nausea, vomiting, diarrhea, syncope, near syncope, fever, or any other symptoms on ROS at this time.. Historical: - Allergies: 15:06 Lisinopril; jl7 - PMHx: 15:06 Alcoholism; COPD; Hypertension; jl7 - Immunization history:: Adult Immunizations unknown. - Social history:: Smoking status: Patient reports the use of cigarette tobacco products, smokes two packs cigarettes per day. Patient uses alcohol, on a daily basis. patient/guardian reports chronic longstanding heavy alcohol consumption. 12 pack/day. ROS: 15:28 Constitutional: Negative for fever, chills, and weight loss, Eyes: Negative for injury, sp3 pain, redness, and discharge, ENT: Negative for injury, pain, and discharge, Neck: Negative for injury, pain, and swelling, Cardiovascular: Negative for chest pain, palpitations, and edema, Abdomen/GI: Negative for abdominal pain, nausea, vomiting, diarrhea, and constipation, Back: Negative for injury and pain, MS/Extremity: Negative for injury and deformity, Skin: Negative for injury, rash, and discoloration, Neuro: Negative for headache, weakness, numbness, tingling, and seizure, Psych: Negative for depression, anxiety, suicide ideation, homicidal ideation, and hallucinations, Allergy/Immunology: Negative for hives, rash, and allergies, Endocrine: Negative for neck swelling, polydipsia, polyuria, polyphagia, and marked weight changes. 15:28 All other systems are negative. Exam: 15:29 Constitutional: This is a well developed, well nourished patient who is awake, alert, sp3 and in no acute distress. Head/Face: Normocephalic, atraumatic. Eyes: Pupils equal round and reactive to light, extra-ocular motions intact. Lids and lashes normal. Conjunctiva and sclera are non-icteric and not injected. Cornea within normal limits. Periorbital areas with no swelling, redness, or edema. ENT: Nares patent. No nasal discharge, no septal abnormalities noted. External auditory canals are clear. Oropharynx with no redness, swelling, or masses, exudates, or evidence of obstruction, uvula midline. Mucous membranes moist. Chest/axilla: Normal chest wall appearance and motion. Nontender with no deformity. No lesions are appreciated. Cardiovascular: Regular rate and rhythm with a normal S1 and S2. No gallops, murmurs, or rubs. Normal PMI, no JVD. No pulse deficits. Abdomen/GI: Soft, non-tender, with normal bowel sounds. No distension or tympany. No guarding or rebound. No evidence of tenderness throughout. Skin: Warm, dry with normal turgor. Normal color with no rashes, no lesions, and no evidence of cellulitis. MS/ Extremity: Pulses equal, no cyanosis. Neurovascular intact. Full, normal range of motion. Neuro: Awake and alert, GCS 15, oriented to person, place, time, and situation. Cranial nerves II-XII grossly intact. Motor strength 5/5 in all extremities. Sensory grossly intact. Cerebellar exam normal. Normal gait. Psych: Awake, alert, with orientation to person, place and time. Behavior, mood, and affect are within normal limits. 15:29 Respiratory: Sounds bilaterally with generalized rhonchi in multiple lozano. Scattered wheeze noted.. 16:03 ECG was reviewed by the Attending Physician. EKG demonstrates normal sinus rhythm at 87 sp3 bpm with normal intervals, normal QRS, normal axis, normal ST/T-segment without evidence of acute ischemia. Vital Signs: 15:01 BP 140 / 86; Pulse 97; Resp 20; Temp 98.9; Pulse Ox 93% ; Weight 81.65 kg; Height 5 ft. jl7 4 in. (162.56 cm); Pain 0/10; 16:03 BP 127 / 82; Pulse 86; Resp 14; Pulse Ox 96% on 2 lpm NC; vg1 15:01 Body Mass Index 30.90 (81.65 kg, 162.56 cm) jl7 MDM: 15:17 Patient medically screened. sp3 15:29 Data reviewed: vital signs, nurses notes, lab test result(s), EKG, radiologic studies. sp3 ED course: 52-year-old male with repeat COPD exacerbation. Clinically I am not highly suspicious for acute coronary syndrome, pulmonary embolism, sepsis, shock, pneumonia however we will ascertain all of these through his work-up. We will also give duo nebulizer and will add steroids and antibiotics if indicated. Will admit patient to hospitalist service for continued management.. 16:06 ED course: Will defer steroid use to Dr. Finch since he is his physician.. 3 01/10 15:17 Order name: Basic Metabolic Panel 3 01/10 15:17 Order name: CBC with Diff 3 01/10 15:17 Order name: Magnesium sp3 01/10 15:17 Order name: NT PRO-BNP sp3 01/10 15:17 Order name: Troponin HS sp3 01/10 15:17 Order name: XRAY Chest (1 view) 3 01/10 15:17 Order name: EKG; Complete Time: 15:18 sp3 01/10 15:17 Order name: Cardiac monitoring; Complete Time: 15:59 sp3 01/10 15:17 Order name: EKG - Nurse/Tech; Complete Time: 15:40 3 01/10 15:17 Order name: IV Saline Lock; Complete Time: 15:59 sp3 01/10 15:17 Order name: Labs collected and sent; Complete Time: 15:40 sp3 01/10 15:17 Order name: O2 Per Protocol; Complete Time: 15:43 sp3 01/10 15:17 Order name: O2 Sat Monitoring; Complete Time: 15:43 sp3 01/10 15:47 Order name: CBC with Automated Diff; Complete Time: 16:03 EDMS 01/10 16:07 Order name: Basic Metabolic Panel; Complete Time: 16:30 EDMS 01/10 16:07 Order name: Troponin High Sensitivity; Complete Time: 16:30 EDMS 01/10 16:07 Order name: NT PRO-BNP; Complete Time: 16:30 EDMS 01/10 16:07 Order name: Magnesium; Complete Time: 16:30 EDMS 01/10 16:36 Order name: RAD EDMS Administered Medications: 15:48 Drug: DuoNeb (albuterol 2.5 mg, ipratropium 0.5 mg) (3:1) (2.5 mg - 0.5 mg) 3 ml Route: kr3 Nebulizer; 16:32 Follow up: Response: No adverse reaction vg1 15:52 Drug: Rocephin (cefTRIAXone) 100 mg/kg Route: IVPB; Site: right antecubital; vg1 16:32 Follow up: IV Status: Completed infusion; IV Intake: 100ml vg1 16:31 Drug: Zithromax (azithromycin) 500 mg Route: IVPB; Infused Over: 1 hrs; Site: right jl7 antecubital; 16:51 Drug: TORadol (ketorolac) 30 mg Route: IVP; Site: right antecubital; vg1 Disposition Summary: 01/10/23 16:08 Hospitalization Ordered Hospitalization Status: Inpatient Admission sp3 Provider: Mayur Martinez3 Location: Telemetry/[facility] (Inpatient) sp3 Condition: Stable sp3 Problem: an acute exacerbation sp3 Symptoms: have worsened sp3 Bed/Room Type: Standard sp3 Room Assignment: sp3 Diagnosis - COPD/ Chronic obstructive pulmonary disease with (acute) exacerbation sp3 - Respiratory failure, unspecified with hypoxia sp3 Forms: - Medication Reconciliation Form sp3 - SBAR form sp3 Signatures: Dispatcher [employer] EDKelsie Rodriguez RN RN jl7 Cait Gomez RN RN vg1 Imani Frances MD MD sp3 Jackie Costa RN RN kr3
--- NOTE | 2023-01-10 16:35 | RAD REPORT ---
EXAM DESCRIPTION: [facility] Single View01/10/2023 4:22 pm CLINICAL HISTORY: DYSPNEA COMPARISON: <Comparisons> TECHNIQUE: Portable AP view of the chest. FINDINGS: Stable streaky opacification in the medial right base, obscuring the right cardiac border. Mild left basilar atelectasis, stable. No pneumothorax or effusion. The cardiomediastinal contours a re unremarkable. IMPRESSION: No significant interval change since the prior radiograph.
[2023-01-10 18:11] VITALS: TEMP 98.9
[2023-01-10 18:12] VITALS: BP 127/82; O2SAT 96
--- NOTE | 2023-01-12 16:44 | EKG ---
Test Date: 2023-01-10 Test Time: 15:42:27 Video Producer: CHANELLE MEASUREMENT RESULTS: Intervals: Rate: 87 WY: 138 QRSD: 98 QT: 378 QTc: 454 [place]: P: 60 WY: 138 QRS: 88 T: 73 INTERPRETIVE STATEMENTS: Normal sinus rhythm Normal ECG Compared to ECG 01/09/2023 16:58:08 Prolonged QT interval no longer present Electronically Signed On 01-12-23 16:38:42 ROVING HAULER by Rosalino Albert
== END ==
LOC: ER 14:53
DX: J96.91 Respiratory failure, unspecified with hypoxia (principal); J44.1 Chronic obstructive pulmonary disease with (acute) exacerbation; I10 Essential (primary) hypertension; F10.20 Alcohol dependence, uncomplicated; F17.210 Nicotine dependence, cigarettes, uncomplicated; Z88.8 Allergy status to other drugs, medicaments and biological substances
CPT/HCPCS: 96365; 93005; 85025; 80048; 36415; 83735; 84484; 83880; 71045; 94640; 96375; 99284; J7613; J7644; J0456; J7050; J0696

== ENCOUNTER 2023-01-11 19:14 | Emergency (ER) | payer OTHER ==
--- OUTSIDE RECORDS SUMMARY | 2023-01-11 19:19 | XMS REPORT | Continuity of Care Document ---
:1970 Author Organization [facility] t Address [address] [place] [address] Care Team Providers Name Role Phone LOPEZGIRISH FelizIsaiasROMEO Primary Care Physician Unavailable Melinda Maciel DO [...] y of on of on of 00:00: [place] chronic chronic 00 Medical obstructiv obstructiv Br anch e e pulmonary pulmonary disease disease (COPD) (COPD) Obesity Obesity Disease Active 2018 Univers (BMI (BMI 5-16 ity of 30-39.9) 30-39.9) 00:00: [place] [address] Medical Branch Allergies, Adverse Reactions, Alerts Allergy Allergy Status Severity Reaction(s) Onset Inactive Treating Comm ents Source Name Type Date Date Clinician Lisinopr Propensi Active Anaphylaxis 2018-0 U nivers il ty to 5-16 ity of adverse 00:00: [place] reaction 00 Medical s Branch LISINOPR DRUG Active Anaphylaxis Uni vers [place] INGREDI 5-16 ity of 00:00: [address] Social History Social Habit Start Date Stop Date Quantity Comments Source History of Smokes tobacco University of tobacco use daily [facility] Exposure to 2022-10-04 2022-10-14 Not sure [facility] SARS-CoV-2 00:00:00 10:25:00 [facility] [place] [facility] [place] Alcohol intake 2022-03-09 2022-03-09 4.29 /d University 00:00:00 00:00:00 [facility] Tobacco use and 2018-03-24 2018-03-24 User of smokeless Un iversity of exposure 00:00:00 00:00:00 tobacco [facility] Tobacco Comment 2018-03-24 2018-03-24 trying to quit Unive rsity of 00:00:00 00:00:00 [facility] Sex Ass[birth year] At [birth year] Universit y of 00:00:00 00:00:00 [facility] Smoking Status Start Date Stop Date Source Smokes tobacco daily 2018-03-24 00:00:00 Univers ity of [facility] Medications Ordered Filled Start Stop Current Ordering Indication Dosage Frequency Signature Comments Components Source Medication Medication Date Date Medication? Clinician (SIG) Name Name iopamidol 2021-11- No [id number] 70mL 70 mL, U nivers (ISOVUE 12-15- Intravenou ity o f 370-500 mL) 18:30: 18:30 s, ONCE, 1 [place] injection 00 :00 dose, On Medica l [address] [facility] 10/14/22 at 1230, Routine methylpredn 2021-11 Yes 125mg 125 mg, Un odalys isolone sod 12-15 Intravenou it y of succ 18:00: s, Q6H, [place] (SOLU-MEDRO 00 First dose Me dical L) on [facility] injection 10/14/22 at 125 mg 1200, Until Discontinu ed, Routine furosemide 2021-11- No 40mg 40 mg, IV U nivers (LASIX) 12-15 12- Push, ity of injection 17:45: 16:39 ONCE, 1 [place] 40 [place] 00 :00 dose, On Medical [facility] 10/14/22 at 1145, LAURYN ipratropium 2021-11- [...] 10/14/22 at 1045, Routine levoFLOXaci 2021-11 Yes [id number] 750mg Take 1 Univers n 750 mg [...] of succ 11:45: 10:43 s, ONCE, 1 [place] (SOLU-MEDRO 00 :00 dose, On Medi keo [...] 0530, solution 3 Routine mL albuterol Yes [id number] 2{puff} Inhale 2 Univers 90 4-14 Puffs ity of mcg/actuati 00:00: every 4 [place] as on inhaler 00 (four) Medical hours as Branch needed for Wheezing or Shortness of Breath. albuterol Yes [id number] 2.5mg Inhale 3 Univers 2.5 mg /3 4-14 mL every 4 ity of mL (0.083 00:00: (four) [place] %) 00 hours. May Medical nebulizer also Branch solution nebulize one extra every 6 hours. budesonide- Yes [id number] 2{puff} Inhale 2 Univers formoteroL 4-14 Puffs 2 ity of 160-4.5 00:00: (two) [place] mcg/actuati 00 times Medical on inhaler daily. Branch triamterene Yes [id number] 1{tbl} Take 1 Univers -hydrochlor 4-14 tablet by ity of othiazid 00:00: mouth [place] 37.5-25 mg 00 daily. Medical tablet Branch chlordiazeP Yes [id number] 25mg Take 1 Univers OXIDE 25 mg 4-14 capsule by it y of capsule 00:00: mouth [place] 00 every 6 Medical (six) Branch hours as needed for Anxiety, Agitation, Heart Rate => 100 or Detox. predniSONE Yes [id number] TAKE ONE Univers 10 mg 4-14 TABLET BY ity of tablet 00:00: MOUTH [place] 00 DAILY Medical Branch albuterol Yes [id number] 2{puff} Inhale 2 Univers 90 4-14 Puffs ity of mcg/actuati 00:00: every 4 [place] as on inhaler 00 (four) Medical hours as Branch needed for Wheezing or Shortness of Breath. albuterol Yes [id number] 2.5mg Inhale 3 Univers 2.5 mg /3 4-14 mL every 4 ity of mL (0.083 00:00: (four) [place] %) 00 hours. May Medical nebulizer also Branch solution nebulize one extra every 6 hours. budesonide- Yes [id number] 2{puff} Inhale 2 Univers formoteroL 4-14 Puffs 2 ity of 160-4.5 00:00: (two) [place] mcg/actuati 00 times Medical on inhaler daily. Branch triamterene Yes [id number] 1{tbl} Take 1 Univers -hydrochlor 4-14 tablet by ity of othiazid 00:00: mouth [place] 37.5-25 mg 00 daily. Medical tablet Branch chlordiazeP Yes [id number] 25mg Take 1 Univers OXIDE 25 mg 4-14 capsule by it y of capsule 00:00: mouth [place] 00 every 6 Medical (six) Branch hours as needed for Anxiety, Agitation, Heart Rate => 100 or Detox. predniSONE Yes [id number] TAKE ONE Univers 10 mg 4-14 TABLET BY ity of tablet 00:00: MOUTH [place] 00 DAILY Medical Branch albuterol Yes [id number] 2{puff} Inhale 2 Univers 90 4-14 Puffs ity of mcg/actuati 00:00: every 4 [place] as on inhaler 00 (four) Medical hours as Branch needed for Wheezing or Shortness of Breath. albuterol Yes [id number] 2.5mg Inhale 3 Univers 2.5 mg /3 4-14 mL every 4 ity of mL (0.083 00:00: (four) [place] %) 00 hours. May Medical nebulizer also Branch solution nebulize one extra every 6 hours. budesonide- Yes [id number] 2{puff} Inhale 2 Univers formoteroL 4-14 Puffs 2 ity of 160-4.5 00:00: (two) [place] mcg/actuati 00 times Medical on inhaler daily. Branch triamterene Yes [id number] 1{tbl} Take 1 Univers -hydrochlor 4-14 tablet by ity of othiazid 00:00: mouth [place] 37.5-25 mg 00 daily. Medical tablet Branch chlordiazeP Yes [id number] 25mg Take 1 Univers OXIDE 25 mg 4-14 capsule by it y of capsule 00:00: mouth [place] 00 every 6 Medical (six) Branch hours as needed for Anxiety, Agitation, Heart Rate => 100 or Detox. predniSONE Yes [id number] TAKE ONE Univers 10 mg 4-14 TABLET [...] by ity of capsule 16:32: mouth 2 [place] 14 (two) Medical times [place] daily as needed (MSK pain). foLIC acid Yes 1mg Take 1 mg Un odalys 1 mg tablet 5-18 by mouth ity of 16:32: daily. [place] 14 Medical Branch triamterene 2017-0 Yes 1{capsu Take 1 U nivers -hydrochlor 5-18 le} capsule by it y of othiazide 16:32: mouth [place] 37.5-25 mg 14 every Medical per capsule morning. Bran ch amLODIPine 2018-0 Yes 10mg Take 10 mg U nivers 10 mg 5-18 by mouth ity of tablet 16:32: at [place] 14 bedtime. Medical Branch gabapentin 2018-0 Yes 100mg Take 100 Un odalys 100 mg 5-18 mg by ity of capsule 16:32: mouth 2 [place] 14 (two) Medical times Branch daily as needed (MSK pain). foLIC acid 2018-0 Yes 1mg Take 1 mg Un odalys 1 mg tablet 5-18 by mouth ity of 16:32: daily. [place] [address] Medical Branch triamterene 0 Yes 1{capsu Take 1 U nivers -hydrochlor 5-18 le} capsule by it y of othiazide 16:32: mouth [place] 37.5-25 mg 14 every Medical per capsule morning. Bran ch amLODIPine 2018-0 Yes 10mg Take 10 mg U nivers 10 mg 5-18 by mouth ity of tablet 16:32: at [place] [address] bedtime. Medical Branch gabapentin 2018-0 Yes 100mg Take 100 Un odalys 100 mg 5-18 mg by ity of capsule 16:32: mouth 2 [place] 14 (two) Medical times [place] daily as needed (MSK pain). foLIC acid 2018-0 Yes 1mg Take 1 mg Un odalys 1 mg tablet 5-18 by mouth ity of 16:32: daily. [address] triamterene 2017-0 Yes 1{capsu Take 1 U nivers -hydrochlor 5-18 le} capsule by it y of othiazide 16:32: mouth [place] 37.5-25 mg 14 every Medical per capsule morning. Bran ch amLODIPine 2017-0 Yes 10mg Take 10 mg U nivers 10 mg 5-18 by mouth ity of tablet 16:32: at [place] 14 bedtime. Medical Branch budesonide- 2017-0 Yes [...] Immunizations Ordered Filled Immunization Date Status Comments [facility] e Immunization Name Name SARS-COV-2 COVID-19 2021-02-03 Completed Unive rsity of PFIZER VACCINE 00:00:00 [facility] SARS-COV-2 COVID-19 2021-02-03 Completed Unive rsity of PFIZER VACCINE 00:00:00 [facility] SARS-COV-2 COVID-19 2021-02-03 Completed Unive rsity of PFIZER VACCINE 00:00:00 [facility] SARS-COV-2 COVID-19 2021-01-13 Completed Unive rsity of PFIZER VACCINE 00:00:00 [facility] SARS-COV-2 COVID-19 2021-01-13 Completed Unive rsity of PFIZER VACCINE 00:00:00 [facility] SARS-COV-2 COVID-19 2021-01-13 Completed Unive rsity of PFIZER VACCINE 00:00:00 [facility] Pneumococcal 2018-03-26 Completed University o f Polysaccharide, 00:00:00 [facility] ical PPSV23 (PNEUMOVAX) [place] Influenza Virus 2018-03-26 Completed Universit y of Vaccine Quad IM 3+ 00:00:00 [facility] Pneumococcal 2018-03-26 Completed University o f Polysaccharide, 00:00:00 [place] Med ical PPSV23 (PNEUMOVAX) [place] Influenza Virus 2018-03-26 Completed Universit y of Vaccine Quad IM 3+ 00:00:00 [facility] Pneumococcal 2018-03-26 Completed University o f Polysaccharide, 00:00:00 [place] Med ical PPSV23 (PNEUMOVAX) [place] Influenza Virus 2018-03-26 Completed Universit y of Vaccine Quad IM 3+ 00:00:00 [facility] Vital Signs Vital Name Observation Time Observation Value Comments Source Systolic blood 2022-10-14 19:43:00 111 mm[Hg] Univer sity of pressure [facility] Diastolic blood 2022-10-14 19:43:00 74 mm[Hg] Unive rsity of pressure [place] [facility] Heart rate 2022-10-14 19:43:00 98 /min [facility] [place] [facility] Body temperature 2022-10-14 19:43:00 36.39 Debbie Univ ersity of [place] [facility] Respiratory rate 2022-10-14 19:43:00 22 /min Univ ersity of [place] [facility] Oxygen saturation in 2022-10-14 19:43:00 94 /min University of Arterial blood by [facility] [place] [facility] keo Pulse oximetry Branch Body height 2022-10-14 16:13:00 162.6 cm Universi ty of [place] [facility] Body weight 2022-10-14 16:13:00 81.647 kg [facility]i ty [facility] [place] [facility] BMI 2022-10-14 16:13:00 30.90 kg/m2 Universi ty [facility] [place] [facility] Systolic blood 2022-03-12 10:13:00 119 mm[Hg] Univer sity of pressure [place] [facility] Diastolic blood 2022-03-12 10:13:00 75 mm[Hg] Unive rsity of pressure [place] [facility] Heart rate 2022-03-12 10:13:00 105 /min Universi ty [facility] [place] [facility] Body temperature 2022-03-12 10:13:00 37.28 Debbie Univ ersity of [place] [facility] Respiratory rate 2022-03-12 10:13:00 19 /min Univ ersity of [place] [facility] Body height 2022-03-12 10:13:00 162.6 cm [facility]i [facility] [place] [facility] Body weight 2022-03-12 10:13:00 99.791 kg [facility] [place] [facility] BMI 2022-03-12 10:13:00 37.76 kg/m2 [facility]i ty [facility] [place] [facility] Oxygen saturation in 2022-03-12 10:13:00 96 /min University of Arterial blood by [facility] [place] [facility] keo Pulse oximetry Branch Systolic blood 2022-02-20 11:57:00 155 mm[Hg] Univer sity of pressure [place] [facility] Diastolic blood 2022-02-20 11:57:00 88 mm[Hg] Unive rsity of pressure [place] [facility] Heart rate 2022-02-20 11:57:00 105 /min Universi ty [facility] [place] [facility] Respiratory rate 2022-02-20 11:57:00 18 /min [facility] Oxygen saturation in 2022-02-20 11:57:00 100 /min [facility] Arterial blood by [place] [facility] Pulse oximetry Branch Body temperature 2022-02-20 09:25:00 37 Debbie [facility] Body height 2022-02-20 09:25:00 162.6 cm [facility] Body weight 2022-02-20 09:25:00 96.163 kg [facility] BMI 2022-02-20 09:25:00 36.39 kg/m2 [facility] Procedures Procedure Date / Time Performing Clinician Source Performed CT ABDOMEN PELVIS W 2022-10-14 17:33:00 Melinda Maciel [facility] CONTRAST [facility] XR CHEST 1 VW 2022-10-14 17:10:37 Singer [facility] TROPONIN I 2022-10-14 16:37:00 Singer [facility] COMP. METABOLIC PANEL 2022-10-14 16:37:00 Melinda Maciel [facility] ([id number]) [facility] CBC WITH DIFF 2022-10-14 16:37:00 Singer [facility] PROTHROMBIN TIME / INR 2022-10-14 16:37:00 Melinda Maciel [facility] URINALYSIS 2022-10-14 16:37:00 Singer [facility] N-TERMINAL PRO-BNP 2022-10-14 16:37:00 Melinda Maciel [facility] CONSENT/REFUSAL FOR 2022-10-14 15:56:36 Doctor Unassigned, No Un iversity of [place] DIAGNOSIS AND TREATMENT Name Medical Branch CONSENT/REFUSAL FOR 2022-03-12 10:03:12 [facility] Name Medical Branch XR CHEST 1 VW 2022-02-20 09:59:00 Christy Shaw [facility] LIPASE 2022-02-20 09:30:00 Christy Shaw [facility] TROPONIN I 2022-02-20 09:30:00 Christy Shaw [facility] COMP. METABOLIC PANEL 2022-02-20 09:30:00 Christy Shaw [facility] ([id number]) [facility] CBC WITH DIFF 2022-02-20 09:30:00 Christy Shaw [facility] N-TERMINAL PRO-BNP 2022-02-20 09:30:00 Christy Shaw [facility] NOTICE OF PRIVACY 2022-02-20 09:15:02 Doctor Unassigned, No Univ [facility] PRACTICES Name [facility] Branch CONSENT/REFUSAL FOR 2022-02-20 09:14:47 Doctor Unassigned, No [facility] DIAGNOSIS AND TREATMENT Name [facility] Encounters Start End Encounter Admission Attending Care Care Encounter Source Date/Time Date/Time Type Type Clinicians Facility Department ID 2022-10-14 2022-10-14 Emergency [facility] [id number] Univers 10:07:00 14:39:00 Melinda SMITH [id number] i ty [facility] [id number] [facility] [id number] [address] 2022-10-14 2022-10-14 Emergency [facility] [id number] Univers 10:07:00 14:39:00 MELINDA radha [facility] 2022-03-12 2022-03-12 Emergency [facility] [id number] Univers 05:15:00 06:41:00 CHRISTY garcia [facility] 2022-03-12 2022-03-12 [facility] [id number] Univers 05:15:00 06:41:00 Christy SMITH [id number] ity [facility] [id number] [facility] [id number] [address] 2022-02-20 2022-02-20 Emergency [facility] [id number] Univers 04:17:00 07:16:00 [facility]-20 2022-02-20 [facility] [id number] Univers 04:17:00 07:16:00 Christy SMITH [id number] [facility] [id number] [facility] [id number] [facility] 084 Branch 2021-02-03 2021-02-03 Outpatient R PINEDA, [facility] [id number] Univers 11:10:00 11:10:00 [facility] 2021-01-13 2021-01-13 Outpatient [facility] [id number] Univers 11:20:00 11:20:00 [facility] 2020-11-10 2020-11-10 [id number] Univers 08:20:00 08:20:00 KARLEY [facility] Results Test Description Test Time Test Comments Results Result Comments Source TROPONIN I 2022-02-20 10:16:22 Test Item Value Reference Range Interpretation Comme nts TROPONIN I (test code = 0.007 ng/mL See_Comment [Au tomated message] The [id number]) system which ge nerated this result tra [...] biotin. Lab Interpretation Normal (test code = 99391-8) [place] [facility] [id number] 10:13:01 Test Item Value Reference Range Interpretation Comments NT-proBNP (test code 52 pg/mL See_Comment [Autom ated = 2205699124) message] The system which generated this result transmitted reference range : <=125. The reference range was not used to interpret this result as normal/abnormal . LOUISE (test code = LOUISE) Biotin has been reported to cause a negative bias, interpret results relative to patient's use of biotin. Lab Interpretation Normal (test code = 83954-6) [facility]. METABOLIC PANEL ([id number])2022-02-20 10:04:02 Test Item Value Reference Range Interpretation Comments NA (test code = 137 mmol/L 135-145 7653947480) K (test code = 3.6 mmol/L 3.5-5.0 0924349267) CL (test code = 99 mmol/L 98-108 6558385014) CO2 TOTAL (test code = 25 mmol/L 23-31 2993769370) AGAP (test code = 2-16 0939399707) BUN (test code = 6 mg/dL 7-23 L 7082052034) GLUCOSE (test code = 88 mg/dL 70-110 7645657239) CREATININE (test code = 0.55 mg/dL 0.60-1.25 L 1206755261) TOTAL BILI (test code = 0.8 mg/dL 0.1-1.1 0107646541) CALCIUM (test code = 8.9 mg/dL 8.6-10.6 2090829552) T PROTEIN (test code = 7.5 g/dL 6.3-8.2 1678682742) ALBUMIN (test code = 4.8 g/dL 3.5-5.0 0721873782) ALK PHOS (test code = 113 U/L 34-122 2234552152) ALTv (test code = 84 U/L 5-50 H 1742-6) AST(SGOT) (test code = 107 U/L 13-40 H 0510510104) eGFR (test code = mL/min/1.73m2 7808473249) LOUISE (test code = LOUISE) Association of [...] tests). Lab Interpretation Abnormal (test code = 75271-6) [place] [facility], [id number] 10:03:21 Test Item Value Reference Range Interpretation Comments LIPASE (test code = 7238210434) 193 U/L 0-220 Lab Interpretation (test code = Normal 50113-1) [place] [facility] WITH [id number] 09:39:17 Test Item Value Reference Range Interpretation Comments WBC (test code = See_Comment [Automated 8490-2) message] The sy stem which generated this result transmitted reference range : 4.20 - 10.70 10*3/?L. The reference range was not used to interpret this result as normal/abnormal . RBC (test code = See_Comment [Automated 169-8) message] The sy stem which generated this [...] RDW-SD (test code = 44.4 fL 38.5-51.6 48897-9) RDW-CV (test code = 11.9 % 12.1-15.4 L 788-0) PLT (test code = See_Comment [Automated 777-3) message] The sy stem which generated this result transmitted reference range : 150 - 328 10*3/ ?L. The reference r ernie was not used to interpret this result as normal/abnormal . MPV (test code = 9.2 fL 9.8-13.0 L 08053-4) NRBC/100 WBC (test See_Comment [Automat ed code = 8720340265) message] The system which generated this result transmitted reference range : 0.0 - 10.0 /100 WBCs. The refer ence range was not u sed to interpret th is result as normal/abnormal . NRBC x10^3 (test code <0.01 See_Comment [Auto mated = 5410019568) message] The s ystem which generated this result transmitted reference range : 10*3/?L. The reference range was not used to interpret this result as normal/abnormal . GRAN MAT (NEUT) % 69.9 % (test code = 770-8) IMM GRAN % (test code 1.50 % = 6148891769) LYMPH % (test code = 18.9 % 736-9) MONO % (test code = 7.0 % 5905-5) EOS % (test code = 1.9 % 713-8) BASO % (test code = 0.8 % 706-2) GRAN MAT x10^3(ANC) 7.15 10*3/uL 1.99-6.95 H (test code = 3410409345) IMM GRAN x10^3 (test 0.15 10*3/uL 0.00-0.06 H code = 5439257512) LYMPH x10^3 (test code 1.93 10*3/uL 1.09-3.23 = 731-0) MONO x10^3 (test code 0.72 10*3/uL 0.36-1.02 = 742-7) EOS x10^3 (test code = 0.19 10*3/uL 0.06-0.53 711-2) BASO x10^3 (test code 0.08 10*3/uL 0.01-0.09 = 704-7) Lab Interpretation Abnormal (test code = 01804-0) [facility]"
[2023-01-11 20:04] LABS: Absolute Lymphocytes (CBC) 2.4 K/uL (0.7-4.9); Hematocrit 42.8 % (39.6-49.0); Lymphocytes % 27.1 % (15.3-44.8); MCV 102.8 fL (80-100); MPV 6.6 fL (7.6-11.3); RBC Red Blood Cell Count 4.16 M/uL (4.33-5.43)
[2023-01-11 20:13] LABS: Albumin 3.9 g/dL (3.4-5.0); Bilirubin Direct 0.1 mg/dL (0-0.2); Bilirubin Total 0.3 mg/dL (0.2-1.0); Magnesium 2.1 mg/dL (1.6-2.4); Potassium 3.6 mmol/L (3.5-5.1); Protein, Total 7.2 g/dL (6.4-8.2); Protime INR 0.87; Troponin High Sensitivity 4.6 pg/mL (<58.9)
--- NOTE | 2023-01-11 20:26 | RAD REPORT ---
EXAM DESCRIPTION: [place] Single View01/11/2023 7:57 pm CLINICAL HISTORY: Chest pain COMPARISON: none FINDINGS: The lungs appear clear of acute infiltrate. The heart is normal size Right cardiophrenic opacity represents fat IMPRESSION: No acute abnormalities displayed
[2023-01-11 20:39] LABS: SARS-COV-2 RT PCR NEGATIVE (NEGATIVE)
--- NOTE | 2023-01-11 21:52 | EDPHYS ---
Physician Documentation [facility] Name: Randy Briones Age: 52 yrs Sex: Male : 1970 Arrival Date: 01/11/2023 Time: 19:17 Bed IW10 Private MD: ED Physician Jose Crews HPI: 01/11 19:24 This 52 yrs old Male presents to ER via Unassigned with complaints of Dyspnea sp4 . 19:24 52-year-old male with history of COPD presents with worsening dyspnea wheezing and sp4 hypoxemia at home. Patient arrived with EMS who initiated IV Solu-Medrol 125 mg and also nebulized albuterol. . 21:44 On arrival patient is visibly intoxicated and he is getting albuterol treatment by EMS, sp4 patient reports he left hospital AGAINST MEDICAL ADVICE yesterday. Historical: - Allergies: 19:46 Lisinopril; ke1 - PMHx: 19:46 Alcoholism; COPD; Hypertension; ke1 - PSHx: 19:46 Amputation of left index finger; ke1 - Immunization history:: Adult Immunizations Client reports receiving the 2nd dose of the Covid vaccine. - Social history:: Smoking status: Patient reports the use of cigarette tobacco products, smokes two packs cigarettes per day. - Family history:: not pertinent. ROS: 21:44 Constitutional: Negative for fever, chills, and weight loss, reports generalized sp4 weakness and feeling unwell Eyes: Negative for injury, pain, redness, and discharge, ENT: Negative for injury, pain, and discharge, Neck: Negative for injury, pain, and swelling, Cardiovascular: Positive for chest pains negative for edema positive for hypertension Respiratory: Positive for shortness of breath, and pleuritic chest pain, positive for chest pain and dyspnea on exertion, positive for wheezing positive for smoking Abdomen/GI: Negative for abdominal pain, nausea, vomiting, diarrhea, and constipation, Back: Negative for injury and pain, : Negative for injury, bleeding, discharge, and swelling, MS/Extremity: Negative for injury and deformity, Skin: Negative for injury, rash, and discoloration, Neuro: Negative for headache, weakness, numbness, tingling, and seizure, Psych: Negative for depression, anxiety, suicide ideation, homicidal ideation, and hallucinations, Allergy/Immunology: Negative for hives, rash, and allergies, Endocrine: Negative for neck swelling, polydipsia, polyuria, polyphagia, and marked weight changes, Hematologic/Lymphatic: Negative for swollen nodes, abnormal bleeding, and unusual bruising. Exam: 21:44 Constitutional: This is a well developed, well nourished patient who is awake, patient sp4 is visibly intoxicated the patient is having dyspnea and appears unwell but nontoxic appearance, overweight body habitus, mild respiratory distress. Head/Face: Normocephalic, atraumatic. There is facial plethora Eyes: Pupils equal round and reactive to light, extra-ocular motions intact. Lids and lashes normal. Conjunctiva and sclera are non-icteric and not injected. Cornea within normal limits. Periorbital areas with no swelling, redness, or edema. ENT: Nares patent. No nasal discharge, no septal abnormalities noted. Tympanic membranes are normal and external auditory canals are clear. Oropharynx with no redness, swelling, or masses, exudates, or evidence of obstruction, uvula midline. Mucous membranes moist. Neck: Trachea midline, no thyromegaly or masses palpated, and no cervical lymphadenopathy. Supple, full range of motion without nuchal rigidity, or vertebral point tenderness. No Meningismus. Chest/axilla: Normal chest wall appearance and motion. Nontender with no deformity. No lesions are appreciated. Cardiovascular: Regular rate and rhythm with a normal S1 and S2. No gallops, murmurs, or rubs. Normal PMI, no JVD. No pulse deficits. Respiratory: Lungs have equal breath sounds bilaterally, clear to auscultation and percussion. No rales, rhonchi or wheezes noted. No increased work of breathing, no retractions or nasal flaring. Abdomen/GI: Soft, non-tender, with normal bowel sounds. No distension or tympany. No guarding or rebound. No evidence of tenderness throughout. Back: No spinal tenderness. No costovertebral tenderness. Full range of motion. Skin: Warm, dry with normal turgor. Normal color with no rashes, no lesions, and no evidence of cellulitis. MS/ Extremity: Pulses equal, no cyanosis. Neurovascular intact. Full, normal range of motion. Neuro: Awake and alert, GCS 15, oriented to person, place, time, and situation. Cranial nerves II-XII grossly intact. Motor strength 5/5 in all extremities. Sensory grossly intact. Cerebellar exam normal. Normal gait. Psych: Awake, alert, with orientation to person, place and time. Patient appears visibly upset and intoxicated Vital Signs: 19:43 BP 135 / 83; Pulse 98; Resp 19; Temp 97.6; Pulse Ox 95% ; Weight 84.82 kg; Height 5 ft. ke1 4 in. (162.56 cm); Pain 8/10; 19:43 Body Mass Index 32.10 (84.82 kg, 162.56 cm) ke1 MDM: 19:47 Patient medically screened. sp4 21:44 Differential Diagnosis flu, COPD exacerbation alcohol intoxication, dyspnea and sp4 wheezing, acute bronchitis, congestive heart failure, ACS. Data reviewed: vital signs, nurses notes, lab test result(s), cardiac enzymes, CBC, drug level(s), electrolytes, hepatic panel, radiologic studies. Consideration of Admission/Observation Patient was admitted/placed on observation. Escalation of care including admission/observation considered. Management of patient was discussed with the following: Hospitalist: Nurse practitioner for admission team in the hospital. ED course: 52-year-old male with history of COPD and alcoholism presents with acute dyspnea and alcohol intoxication, patient was advised to stay in the hospital for multisystem management and management of COPD also for management of alcohol abuse, patient also reported chest pain and ACS rule out work-up was ordered, patient then changed his mind about admission and decided to leave the emergency department, since patient is lucid and understands consequences of his actions he was allowed to be released from the emergency department, at this time patient is under the status of discharge from ER. 01/11 19:23 Order name: BMP sp4 01/11 19:23 Order name: Blood Culture Adult (2) sp4 01/11 19:23 Order name: CBC with Diff sp4 01/11 19:23 Order name: CPK sp4 01/11 19:23 Order name: D-Dimer sp4 01/11 19:23 Order name: Hepatic Function sp4 01/11 19:23 Order name: Lipase sp4 01/11 19:23 Order name: Magnesium sp4 01/11 19:23 Order name: NT PRO-BNP sp4 01/11 19:23 Order name: PT-INR sp4 01/11 19:23 Order name: Ptt, Activated [facility] 01/11 19:23 Order name: Troponin HS [facility] 01/11 19:23 Order name: XRAY CXR (1 view) [facility] 01/11 19:23 Order name: EKG; Complete Time: 19:25 [facility] 01/11 19:23 Order name: Cardiac monitoring [facility] 01/11 19:23 Order name: EKG - Nurse/Tech [facility] 01/11 19:23 Order name: IV Saline Lock [facility] 01/11 19:23 Order name: Labs collected and sent; Complete Time: 20:25 [facility] 01/11 19:23 Order name: O2 Per Protocol; Complete Time: 20:25 [facility] 01/11 19:23 Order name: O2 Sat Monitoring; Complete Time: 20:25 [facility] 01/11 19:24 Order name: COVID-19/FLU A+B [facility] 01/11 19:24 Order name: Alcohol Level [facility] 01/11 20:08 Order name: CBC with Automated Diff; Complete Time: 20:33 EDMS 01/11 20:13 Order name: Protime (+INR); Complete Time: 21:42 EDMS 01/11 20:13 Order name: PTT, Activated Partial Thromb; Complete Time: 21:42 EDMS 01/11 20:14 Order name: Basic Metabolic Panel; Complete Time: 20:33 EDMS 01/11 20:14 Order name: Liver (Hepatic) Function; Complete Time: 20:33 EDMS 01/11 20:14 Order name: Creatine Phosphokinase; Complete Time: 20:33 EDMS 01/11 20:14 Order name: Troponin High Sensitivity; Complete Time: 20:33 EDMS 01/11 20:14 Order name: NT PRO-BNP; Complete Time: 20:33 EDMS 01/11 20:14 Order name: Magnesium; Complete Time: 20:33 EDMS 01/11 20:14 Order name: Lipase; Complete Time: 20:33 EDMS 01/11 20:27 Order name: RAD; Complete Time: 20:33 EDMS 01/11 20:39 Order name: COVID-19/FLU A+B; Complete Time: 21:42 EDMS 01/11 20:50 Order name: Alcohol Serum/Plasma; Complete Time: 21:42 EDMS 01/11 21:07 Order name: D-Dimer; Complete Time: 21:42 EDMS Administered Medications: 20:24 Drug: Aspirin Chewable Tablet 324 mg Route: PO; ke1 20:24 Drug: Thiamine 100 mg Route: PO; ke1 20:24 Drug: morphine 4 mg Route: IVP; Infused Over: 4 mins; Site: right antecubital; ke1 20:25 Drug: Zofran (Ondansetron) 4 mg Route: IVP; Site: right antecubital; ke1 20:32 Drug: DuoNeb (albuterol 2.5 mg, ipratropium 0.5 mg) (3:1) (2.5 mg - 0.5 mg) 3 ml Route: ke1 Nebulizer; Disposition Summary: 01/11/23 21:51 Discharge Ordered Location: Home sp4 Problem: new sp4 Symptoms: have improved sp4 Condition: Stable sp4 Diagnosis - Alcohol abuse sp4 - COPD/ Chronic obstructive pulmonary disease, unspecified sp4 - COPD/ Chronic obstructive pulmonary disease with (acute) exacerbation sp4 - Tobacco use sp4 - Alcohol abuse with intoxication sp4 Followup: sp4 - With: Private Physician - When: 1 - 2 days - Reason: Re-evaluation by your physician Discharge Instructions: - Discharge Summary Sheet sp4 - Alcohol Intoxication sp4 - COPD and Physical Activity sp4 Signatures: Dispatcher [employer] EDMS Jairo Agarwal, SERGIO-C MANAGER QUANTITATIVE-Bob Tan RN RN ke1 Jose Crews MD MD sp4
--- NOTE | 2023-01-11 21:52 | ER ---
Nurse's Notes [facility] Name: Randy Briones Age: 52 yrs Sex: Male : 1970 Arrival Date: 01/11/2023 Time: 19:17 Bed IW10 Private MD: Diagnosis: Alcohol abuse;COPD/ Chronic obstructive pulmonary disease, unspecified;COPD/ Chronic obstructive pulmonary disease with (acute) exacerbation;Tobacco use;Alcohol abuse with intoxication Presentation: 01/11 19:43 Chief complaint: Patient states: Difficulty breathing SOB, on tripod position on EMS ke1 arrival oxygen 82%. Coronavirus screen: Vaccine status: Patient reports receiving the 2nd dose of the covid vaccine. Ebola Screen: No symptoms or risks identified at this time. Initial Sepsis Screen: Does the patient meet any 2 criteria? No. Patient's initial sepsis screen is negative. Does the patient have a suspected source of infection? No. Patient's initial sepsis screen is negative. Risk Assessment: Do you want to hurt yourself or someone else? Patient reports no desire to harm self or others. Onset of symptoms was January 11, 2023 at 19:00. Care prior to arrival: Medication(s) given: Albuterol Neb x 2, solumedrol 125 mg. 19:43 Method Of Arrival: EMS ke1 19:43 Acuity: CANDACE 3 ke1 Triage Assessment: 19:47 General: Appears in no apparent distress. Behavior is appropriate for age. Pain: ke1 Complains of pain in chest. Neuro: Level of Consciousness is awake, alert, Oriented to person, place, time, situation. Respiratory: Airway is patent Respiratory effort is even, unlabored, Respiratory pattern is regular, symmetrical, Breath sounds with wheezes bilaterally. Historical: - Allergies: 19:46 Lisinopril; ke1 - PMHx: 19:46 Alcoholism; COPD; Hypertension; ke1 - PSHx: 19:46 Amputation of left index finger; ke1 - Immunization history:: Adult Immunizations Client reports receiving the 2nd dose of the Covid vaccine. - Social history:: Smoking status: Patient reports the use of cigarette tobacco products, smokes two packs cigarettes per day. - Family history:: not pertinent. Screenin:48 [facility] ED Fall Risk Assessment (Adult) History of falling in the last 3 months, ke1 including since admission No falls in past 3 months (0 pts) Confusion or Disorientation No (0 pts) Intoxicated or Sedated No (0 pts) Impaired Gait No (0 pts) Mobility Assist Device Used No (0 pt) Altered Elimination No (0 pt) Score/Fall Risk Level 0 - 2 = Low Risk. Abuse screen: Denies threats or abuse. Nutritional screening: No deficits noted. Tuberculosis screening: No symptoms or risk factors identified. Assessment: 20:56 Reassessment: Patient appears in no apparent distress at this time. Patient and/or ke1 family updated on plan of care and expected duration. Pain level reassessed. Patient states symptoms have improved. 21:15 Reassessment: PT stated he is going to go ahead and walk home. He would like a vc1 cigarette and he has a very important drug test in the morning for a new job. Pt is educated on the importance of staying in the ER since he is still having trouble breathing. Pt states he understands but tomorrow is "a very important day". Pt signed AMA form before leaving the ER. Vital Signs: 19:43 BP 135 / 83; Pulse 98; Resp 19; Temp 97.6; Pulse Ox 95% ; Weight 84.82 kg; Height 5 ft. ke1 4 in. (162.56 cm); Pain 8/10; 19:43 Body Mass Index 32.10 (84.82 kg, 162.56 cm) ke1 ED Course: 19:17 Patient arrived in ED. ds4 19:22 Jose Crews MD is Attending Physician. sp4 19:43 Bob Loredo RN is Primary Nurse. ke1 19:45 Maintain EMS IV. Site clean \\T\\ dry. Gauge \\T\\ site: 20 G RAC. ke 1 19:46 Triage completed. ke1 19:48 Arm band placed on right wrist. ke1 19:48 Bed in low position. Call light in reach. ke1 21:56 No provider procedures requiring assistance completed. IV discontinued, intact, vc1 bleeding controlled, No redness/swelling at site. Pressure dressing applied. Administered Medications: 20:24 Drug: Aspirin Chewable Tablet 324 mg Route: PO; ke1 20:24 Drug: Thiamine 100 mg Route: PO; ke1 20:24 Drug: morphine 4 mg Route: IVP; Infused Over: 4 mins; Site: right antecubital; ke1 20:25 Drug: Zofran (Ondansetron) 4 mg Route: IVP; Site: right antecubital; ke1 20:32 Drug: DuoNeb (albuterol 2.5 mg, ipratropium 0.5 mg) (3:1) (2.5 mg - 0.5 mg) 3 ml Route: ke1 Nebulizer; Medication: 21:56 VIS not applicable for this client. vc1 Outcome: 21:51 Discharge ordered by . sp4 21:56 Discharged to home ambulatory. vc1 21:56 Condition: good 21:56 Instructed on discharge instructions, follow up and referral plans. 21:57 AMA AMA form signed vc1 21:57 Patient left the ED. vc1 Signatures: Cedric Mathews ds4 Piper Humphrey RN RN vc1 Bob Loredo RN RN ke1 Jose Crews MD MD sp4
[2023-01-11 22:28] VITALS: BP 135/83; TEMP 97.6; O2SAT 95
== END 2023-01-11 21:57 | disposition home or self-care (01) ==
LOC: ER 19:14
DX: J44.1 Chronic obstructive pulmonary disease with (acute) exacerbation (principal); F10.229 Alcohol dependence with intoxication, unspecified; Z72.0 Tobacco use; Z20.822 Contact with and (suspected) exposure to COVID-19; I10 Essential (primary) hypertension; Z88.8 Allergy status to other drugs, medicaments and biological substances
CPT/HCPCS: 87040 ×2; 85025; 80048; 36415; 83735; 82550; 85610; 85379; 80076; 85730; 84484; 83690; 83880; 0240U; 71045; 94640; 96375; 96374; 99284; G0480

== ENCOUNTER 2023-01-13 02:28 | Emergency (ER) | payer OTHER ==
--- OUTSIDE RECORDS SUMMARY | 2023-01-13 02:32 | XMS REPORT | Continuity of Care Document ---
:1970 Author Organization [facility] t Address [address] [place] [address] Care Team Providers Name Role Phone LOPEZGIRISH [...] (BMI 5-16 ity of 30-39.9) 30-39.9) 00:00: [place] [address] Medical Branch Allergies, Adverse Reactions, Alerts Allergy Allergy Status Severity Reaction(s) Onset Inactive Treating Comm ents Source Name Type Date Date Clinician Lisinopr Propensi Active Anaphylaxis 2018-0 U nivers il ty to 5-16 ity of adverse 00:00: [place] reaction 00 Medical s Branch LISINOPR DRUG Active Anaphylaxis Uni vers [place] INGREDI 5-16 ity of 00:00: [address] Social History Social Habit Start Date Stop Date Quantity Comments Source History of Smokes tobacco University of tobacco use daily [facility] Exposure to 2022-10-04 2022-10-14 Not sure [facility] SARS-CoV-2 00:00:00 10:25:00 [facility] [place] Alcohol intake 2022-03-09 2022-03-09 4.29 /d University 00:00:00 00:00:00 [facility] Tobacco use and 2018-03-24 2018-03-24 User of smokeless Un iversity of exposure 00:00:00 00:00:[address] [facility] Tobacco Comment 2018-03-24 2018-03-24 trying to quit Unive rsity of 00:00:00 00:00:00 [facility] Sex Ass[birth year] At [birth year] Universit y of 00:00:00 00:00:00 [facility] Smoking Status Start Date Stop Date Source Smokes tobacco daily 2018-03-24 00:00:[address] [facility] Medications Ordered Filled Start Stop Current Ordering Indication Dosage Frequency Signature Comments Components Source Medication Medication Date Date Medication? Clinician (SIG) Name Name iopamidol 2021-11- No [id number] 70mL 70 mL, U nivers (ISOVUE 12-15- Intravenou ity o f 370-500 mL) 18:30: 18:30 s, ONCE, 1 [place] injection 00 :00 dose, On Medica l 70 mL [facility] 10/14/22 at 1230, Routine methylpredn 2021-11 Yes 125mg 125 mg, Un odalys isolone sod 12-15 Intravenou it y of succ 18:00: s, Q6H, [place] (SOLU-MEDRO 00 First dose Me dical L) on [facility] injection 10/14/22 at 125 mg 1200, Until Discontinu ed, Routine furosemide 2021-11- No 40mg 40 mg, IV U nivers (LASIX) 12-15 12- Push, ity of injection 17:45: 16:39 ONCE, 1 [place] 40 mg 00 :00 dose, On Medical [facility] 10/14/22 at 1145, LAURYN ipratropium 2021-11- No [...] 10/14/22 at 1045, Routine levoFLOXaci 2021-11 Yes [id number] 750mg Take 1 Univers n 750 mg [...] 0530, solution 3 Routine mL albuterol Yes [id number] 2{puff} Inhale 2 Univers 90 4-14 Puffs ity of mcg/actuati 00:00: every 4 [place] as on inhaler 00 (four) Medical hours as Branch needed for Wheezing or Shortness of Breath. albuterol Yes [id number] 2.5mg Inhale 3 Univers 2.5 mg /3 4-14 mL every 4 ity of mL (0.083 00:00: (four) [place] %) 00 hours. May Medical nebulizer also Branch solution nebulize one extra every 6 hours. budesonide- Yes [id number] 2{puff} Inhale 2 Univers formoteroL 4-14 Puffs 2 ity of 160-4.5 00:00: (two) [place] mcg/actuati 00 times Medical on inhaler daily. Branch triamterene Yes [id number] 1{tbl} Take 1 Univers -hydrochlor 4-14 tablet by ity of othiazid 00:00: mouth [place] 37.5-25 mg 00 daily. Medical tablet Branch chlordiazeP Yes [id number] 25mg Take 1 Univers OXIDE 25 mg 4-14 capsule by it y of capsule 00:00: mouth [place] 00 every 6 Medical (six) Branch hours as needed for Anxiety, Agitation, Heart Rate => 100 or Detox. predniSONE Yes [id number] TAKE ONE Univers 10 mg 4-14 TABLET BY ity of tablet 00:00: MOUTH [place] 00 DAILY Medical Branch albuterol Yes [id number] 2{puff} Inhale 2 Univers 90 4-14 Puffs ity of mcg/actuati 00:00: every 4 [place] as on inhaler 00 (four) Medical hours as Branch needed for Wheezing or Shortness of Breath. albuterol Yes [id number] 2.5mg Inhale 3 Univers 2.5 mg /3 4-14 mL every 4 ity of mL (0.083 00:00: (four) [place] %) 00 hours. May Medical nebulizer also Branch solution nebulize one extra every 6 hours. budesonide- Yes [id number] 2{puff} Inhale 2 Univers formoteroL 4-14 Puffs 2 ity of 160-4.5 00:00: (two) [place] mcg/actuati 00 times Medical on inhaler daily. Branch triamterene Yes [id number] 1{tbl} Take 1 Univers -hydrochlor 4-14 tablet by ity of othiazid 00:00: mouth [place] 37.5-25 mg 00 daily. Medical tablet Branch chlordiazeP Yes [id number] 25mg Take 1 Univers OXIDE 25 mg 4-14 capsule by it y of capsule 00:00: mouth [place] 00 every 6 Medical (six) Branch hours as needed for Anxiety, Agitation, Heart Rate => 100 or Detox. predniSONE Yes [id number] TAKE ONE Univers 10 mg 4-14 TABLET BY ity of tablet 00:00: MOUTH [place] 00 DAILY Medical Branch albuterol Yes [id number] 2{puff} Inhale 2 Univers 90 4-14 Puffs ity of mcg/actuati 00:00: every 4 [place] as on inhaler 00 (four) Medical hours as Branch needed for Wheezing or Shortness of Breath. albuterol Yes [id number] 2.5mg Inhale 3 Univers 2.5 mg /3 4-14 mL every 4 ity of mL (0.083 00:00: (four) [place] %) 00 hours. May Medical nebulizer also Branch solution nebulize one extra every 6 hours. budesonide- Yes [id number] 2{puff} Inhale 2 Univers formoteroL 4-14 Puffs 2 ity of 160-4.5 00:00: (two) [place] mcg/actuati 00 times Medical on inhaler daily. Branch triamterene Yes [id number] 1{tbl} Take 1 Univers -hydrochlor 4-14 tablet by ity of othiazid 00:00: mouth [place] 37.5-25 mg 00 daily. Medical tablet Branch chlordiazeP Yes [id number] 25mg Take 1 Univers OXIDE 25 mg 4-14 capsule by it y of capsule 00:00: mouth [place] 00 every 6 Medical (six) Branch hours as needed for Anxiety, Agitation, Heart Rate => 100 or Detox. predniSONE Yes [id number] TAKE ONE Univers 10 mg 4-14 TABLET [...] mouth 2 [place] 14 (two) Medical times [place] daily as needed ([facility] pain). foLIC acid [...] 5-18 by mouth ity of 16:32: daily. [place] [address] Medical Branch triamterene 0 Yes 1{capsu Take 1 U nivers -hydrochlor 5-18 le} capsule by it y of othiazide 16:32: mouth [place] 37.5-25 mg 14 every Medical per capsule morning. Bran ch amLODIPine 2018-0 Yes 10mg Take 10 mg U nivers 10 mg 5-18 by mouth ity of tablet 16:32: at [place] [address] bedtime. Medical Branch gabapentin 2018-0 Yes 100mg Take 100 Un odalys 100 mg 5-18 mg by ity of capsule 16:32: mouth 2 [place] 14 (two) Medical times [place] daily as needed ([facility] pain). foLIC acid 2018-0 Yes 1mg Take 1 mg Un odalys 1 mg tablet 5-18 by mouth ity of 16:32: daily. [address] triamterene 2017-0 Yes 1{capsu Take 1 [...] Immunizations Ordered Filled Immunization Date Status Comments [facility] e Immunization Name Name SARS-COV-2 COVID-19 2021-02-03 Completed Unive rsity of PFIZER VACCINE 00:00:00 [facility] SARS-COV-2 COVID-19 2021-02-03 Completed Unive rsity of PFIZER VACCINE 00:00:00 [facility] SARS-COV-2 COVID-19 2021-02-03 Completed Unive rsity of PFIZER VACCINE 00:00:00 [facility] SARS-COV-2 COVID-19 2021-01-13 Completed Unive rsity of PFIZER VACCINE 00:00:00 [facility] SARS-COV-2 COVID-19 2021-01-13 Completed Unive rsity of PFIZER VACCINE 00:00:00 [facility] SARS-COV-2 COVID-19 2021-01-13 Completed Unive rsity of PFIZER VACCINE 00:00:00 [facility] Pneumococcal 2018-03-26 Completed University o f Polysaccharide, 00:00:00 [facility] ical PPSV23 (PNEUMOVAX) [place] Influenza Virus 2018-03-26 Completed Universit y of Vaccine Quad IM 3+ 00:00:00 [facility] Pneumococcal 2018-03-26 Completed University o f Polysaccharide, 00:00:00 [place] Med ical PPSV23 (PNEUMOVAX) [place] Influenza Virus 2018-03-26 Completed Universit y of Vaccine Quad IM 3+ 00:00:00 [facility] Pneumococcal 2018-03-26 Completed University o f Polysaccharide, 00:00:00 [place] Med ical PPSV23 (PNEUMOVAX) [place] Influenza Virus 2018-03-26 Completed Universit y of Vaccine Quad IM 3+ 00:00:00 [facility] Vital Signs Vital Name Observation Time Observation Value Comments Source Systolic blood 2022-10-14 19:43:00 111 mm[Hg] Univer sity of pressure [facility] Diastolic blood 2022-10-14 19:43:00 74 mm[Hg] Unive rsity of pressure [place] [facility] Heart rate 2022-10-14 19:43:00 98 /min [facility] [place] [facility] Body temperature 2022-10-14 19:43:00 36.39 Debbie Univ ersity of [place] [facility] Respiratory rate 2022-10-14 19:43:00 22 /min Univ ersity [facility] [place] [facility] Oxygen saturation in 2022-10-14 19:43:00 94 /min University of Arterial blood by [facility] keo Pulse oximetry Branch Body height 2022-10-14 [...] University of Arterial blood by [facility] keo Pulse oximetry Branch Systolic blood 2022-02-20 11:57:00 155 mm[Hg] Univer sity of pressure [place] [facility] Diastolic blood 2022-02-20 11:57:00 88 mm[Hg] Unive rsity of pressure [place] [facility] Heart rate 2022-02-20 11:57:00 105 /min [facility] [place] [facility] Respiratory rate 2022-02-20 11:57:00 18 /min [facility] Oxygen saturation in 2022-02-20 11:57:00 100 /min [facility] Arterial blood by [facility] Pulse oximetry Branch Body temperature 2022-02-20 09:25:00 37 Debbie [facility] Body height 2022-02-20 09:25:00 162.6 cm [facility] Body weight 2022-02-20 09:25:00 96.163 kg [facility] BMI 2022-02-20 09:25:00 36.39 kg/m2 [facility] Procedures Procedure Date / Time Performing Clinician Source Performed CT ABDOMEN PELVIS W 2022-10-14 17:33:00 Melinda Maciel [facility] CONTRAST [facility] XR CHEST 1 VW 2022-10-14 17:10:37 Singer [facility] TROPONIN I 2022-10-14 16:37:00 Singer [facility] COMP. METABOLIC PANEL 2022-10-14 16:37:00 Melinda Maciel [facility] ([id number]) [facility] CBC WITH DIFF 2022-10-14 16:37:00 Singer [facility] PROTHROMBIN TIME / INR 2022-10-14 16:37:00 Melinda Maciel [facility] URINALYSIS 2022-10-14 16:37:00 Singer [facility] N-TERMINAL PRO-BNP 2022-10-14 16:37:00 Melinda Maciel [facility] CONSENT/REFUSAL FOR 2022-10-14 15:56:36 Doctor Unassigned, No Un [facility]versity of [place] DIAGNOSIS AND TREATMENT Name Medical Branch CONSENT/REFUSAL FOR 2022-03-12 10:03:12 [facility], [facility] Medical Branch XR CHEST 1 VW 2022-02-20 09:59:00 Christy Shaw [facility] LIPASE 2022-02-20 09:30:00 Christy Shaw [facility] TROPONIN I 2022-02-20 09:30:00 Christy Shaw [facility] COMP. METABOLIC PANEL 2022-02-20 09:30:[address] [facility] ([id number]) [facility] CBC WITH DIFF 2022-02-20 09:30:00 Christy Shaw [facility] N-TERMINAL PRO-BNP 2022-02-20 09:30:00 Christy Shaw [facility] NOTICE OF PRIVACY 2022-02-20 09:15:02 Doctor Unassigned, No Univ [facility] PRACTICES Name [facility] Branch CONSENT/REFUSAL FOR 2022-02-20 09:14:47 Doctor Unassigned, No [facility] DIAGNOSIS AND TREATMENT Name [facility] Encounters Start End Encounter Admission Attending Care Care Encounter Source Date/Time Date/Time Type Type Clinicians Facility Department ID 2022-10-14 2022-10-14 Emergency [facility] [id number] Univers 10:07:00 14:39:00 Melinda SMITH [id number] i [facility] [id number] [id number] [address] 2022-10-14 2022-10-14 Emergency [id number] Univers 10:07:00 14:39:00 MELINDA radha [facility] 2022-03-12 2022-03-12 Emergency [facility] [id number] Univers 05:15:00 06:41:00 CHRISTY garcia [facility] 2022-03-12 2022-03-12 [facility] [id number] Univers 05:15:00 06:41:00 Christy SMITH [id number] ity [facility] [id number] [facility] [id number] [address] 2022-02-20 2022-02-20 Emergency [facility] [id number] Univers 04:17:00 07:16:00 [facility] 2022-02-20 [facility] [id number] Univers 04:17:00 07:16:00 Christy SMITH [id number] [facility] [id number] [facility] [id number] [facility] 084 Branch 2021-02-03 2021-02-03 Outpatient R PINEDA, [facility] [id number] Univers 11:10:00 11:10:00 [facility] 2021-01-13 2021-01-13 Outpatient [facility] [id number] Univers 11:20:00 11:20:00 [facility] 2020-11-10 2020-11-10 [facility] [id number] Univers 08:20:00 08:20:00 KARLEY [facility] Results Test Description Test Time Test Comments Results Result Comments Source TROPONIN I 2022-02-20 10:16:22 Test Item Value Reference Range Interpretation Comme nts TROPONIN I (test code = 0.007 ng/mL See_Comment [Au tomated message] The 1375800893) system which ge nerated this result tra [...] biotin. Lab Interpretation Normal (test code = 41197-8) [facility] [id number] 10:13:01 Test Item Value Reference Range Interpretation Comments NT-proBNP (test code 52 pg/mL See_Comment [Autom ated = 0173911132) message] The system which generated this result transmitted reference range : <=125. The reference range was not used to interpret this result as normal/abnormal . LOUISE (test code = LOUISE) Biotin has been reported to cause a negative bias, interpret results relative to patient's use of biotin. Lab Interpretation Normal (test code = 83261-8) [facility]. METABOLIC PANEL ([id number])2022-02-20 10:04:02 Test Item Value Reference Range Interpretation Comments NA (test code = 137 mmol/L 135-145 5398879857) K (test code = 3.6 mmol/L 3.5-5.0 8772069647) CL (test code = 99 mmol/L 98-108 1131529269) CO2 TOTAL (test code = 25 mmol/L 23-31 3258297883) AGAP (test code = 2-16 3392243153) BUN (test code = 6 mg/dL 7-23 L 2560392731) GLUCOSE (test code = 88 mg/dL 70-110 1900323679) CREATININE (test code = 0.55 mg/dL 0.60-1.25 L 1184788283) TOTAL BILI (test code = 0.8 mg/dL 0.1-1.1 0519256085) CALCIUM (test code = 8.9 mg/dL 8.6-10.6 9395071711) T PROTEIN (test code = 7.5 g/dL 6.3-8.2 0840877601) ALBUMIN (test code = 4.8 g/dL 3.5-5.0 8175659618) ALK PHOS (test code = 113 U/L 34-122 8563721746) ALTv (test code = 84 U/L 5-50 H 1742-6) AST(SGOT) (test code = 107 U/L 13-40 H 4645104911) eGFR (test code = mL/min/1.73m2 6714567432) LOUISE (test code = LOUISE) Association of [...] tests). Lab Interpretation Abnormal (test code = 28953-8) [facility] [id number] 10:03:21 Test Item Value Reference Range Interpretation Comments LIPASE (test code = 6520563746) 193 U/L 0-220 Lab Interpretation (test code = Normal 77839-9) [facility] [id number] 09:39:17 Test Item Value Reference Range Interpretation Comments WBC (test code = See_Comment [Automated 3590-2) message] The sy stem which generated this result transmitted reference range : 4.20 - 10.70 10*3/?L. The reference range was not used to interpret this result as normal/abnormal . RBC (test code = See_Comment [Automated 329-8) message] The sy stem which generated this [...] RDW-SD (test code = 44.4 fL 38.5-51.6 17472-8) RDW-CV (test code = 11.9 % 12.1-15.4 L 788-0) PLT (test code = See_Comment [Automated 777-3) message] The sy stem which generated this result transmitted reference range : 150 - 328 10*3/ ?L. The reference r ernie was not used to interpret this result as normal/abnormal . MPV (test code = 9.2 fL 9.8-13.0 L 94924-2) NRBC/100 WBC (test See_Comment [Automat ed code = 5155787112) message] The system which generated this result transmitted reference range : 0.0 - 10.0 /100 WBCs. The refer ence range was not u sed to interpret th is result as normal/abnormal . NRBC x10^3 (test code <0.01 See_Comment [Auto mated = 3327936067) message] The s ystem which generated this result transmitted reference range : 10*3/?L. The reference range was not used to interpret this result as normal/abnormal . GRAN MAT (NEUT) % 69.9 % (test code = 770-8) IMM GRAN % (test code 1.50 % = 2480784767) LYMPH % (test code = 18.9 % 736-9) MONO % (test code = 7.0 % 5905-5) EOS % (test code = 1.9 % 713-8) BASO % (test code = 0.8 % 706-2) GRAN MAT x10^3(ANC) 7.15 10*3/uL 1.99-6.95 H (test code = 8232740646) IMM GRAN x10^3 (test 0.15 10*3/uL 0.00-0.06 H code = 4798625728) LYMPH x10^3 (test code 1.93 10*3/uL 1.09-3.23 = 731-0) MONO x10^3 (test code 0.72 10*3/uL 0.36-1.02 = 742-7) EOS x10^3 (test code = 0.19 10*3/uL 0.06-0.53 711-2) BASO x10^3 (test code 0.08 10*3/uL 0.01-0.09 = 704-7) Lab Interpretation Abnormal (test code = 39387-8) [facility]"
[2023-01-13 03:33] LABS: Absolute Lymphocytes (CBC) 1.3 K/uL (0.7-4.9); Hematocrit 41.2 % (39.6-49.0); Lymphocytes % 12.6 % (15.3-44.8); MCV 102.5 fL (80-100); MPV 6.9 fL (7.6-11.3); RBC Red Blood Cell Count 4.02 M/uL (4.33-5.43)
[2023-01-13 03:37] LABS: Protime INR 0.8
[2023-01-13] MEDS ORDERED: METHYLPREDNISOLONE 125 MG INJ ONE (03:38)
[2023-01-13] MEDS ORDERED: KETOROLAC 30 MG/ML INJ ONE (03:39)
[2023-01-13] MEDS ORDERED: ALBUTEROL 2.5 MG/3 ML NEB SOL ONE ×2 (03:39→06:12)
[2023-01-13] MEDS ORDERED: IPRATROPIUM BROM 0.5MG/2.5ML ONE ×2 (03:39→06:12)
[2023-01-13 03:55] LABS: Albumin 3.7 g/dL (3.4-5.0); Bilirubin Direct 0.1 mg/dL (0-0.2); Bilirubin Total 0.3 mg/dL (0.2-1.0); Magnesium 2.1 mg/dL (1.6-2.4); Potassium 3.6 mmol/L (3.5-5.1); Protein, Total 7.1 g/dL (6.4-8.2); Troponin High Sensitivity 6.4 pg/mL (<58.9)
[2023-01-13] MEDS ORDERED: LORAZEPAM 1 MG TABLET ONE (06:12)
[2023-01-13 09:25] VITALS: BP 148/67; O2SAT 98
--- NOTE | 2023-01-13 15:12 | RAD REPORT ---
EXAM DESCRIPTION: RAD - Chest Single View - 01/13/2023 3:08 am CLINICAL HISTORY: COPD COMPARISON: 01/08/2023 FINDINGS: Single frontal radiograph view of the chest. Cardiomediastinal silhouette: Normal size and contour. Leads overlie the chest. Lungs: No consolidation, pneumothorax, or pleural effusion. Bones: Degenerative change of the spine and shoulders. Upper abdomen: No abnormality identified. IMPRESSION: 1. No acute pulmonary process identified. Stable appearance. Electronically signed by: Domenic Mao 01/13/2023 3:34 AM STAFF WRITER Due to temporary technical issues with the PACS/Fluency reporting system, reports are being signed by the in house radiologists without review as a courtesy to insure prompt reporting. The interpreting radiologist is fully responsible for the content of the report.
--- NOTE | 2023-01-14 13:06 | EKG ---
Test Date: 2023-01-13 Test Time: 02:30:00 Singe Winder: THOR MEASUREMENT RESULTS: Intervals: Rate: 110 MD: 132 QRSD: 108 QT: 356 QTc: 481 [place]: P: 66 MD: 132 QRS: 75 T: 51 INTERPRETIVE STATEMENTS: Sinus tachycardia Possible Left atrial enlargement Incomplete right bundle branch block Borderline ECG Compared to ECG 01/10/2023 15:42:27 Incomplete right bundle-branch block now present Sinus rhythm no longer present Electronically Signed On 01-14-23 13:03:29 WOOD INSPECTOR by Rosalino Albert
--- NOTE | 2023-01-30 14:15 | ER ---
Nurse's Notes [facility] Name: Randy Briones Age: 52 yrs Sex: Male : 1970 Arrival Date: 01/13/2023 Time: 02:55 Bed 4 Private MD: Diagnosis: COPD/ Chronic obstructive pulmonary disease with (acute) exacerbation;Alcohol abuse;Alcohol dependence Presentation: 01/13 02:25 Chief complaint: Patient states: Patient C/O SOB with left side chest pain of 9,onset 2 pf1 hours ago. 02:25 Coronavirus screen: Vaccine status: Patient reports receiving the 2nd dose of the covid pf1 vaccine. [employer] Client denies travel out of the [place] in the last 14 days. Client presents with at least one sign or symptom that may indicate coronavirus-19. Standard/surgical mask placed on the client. Ebola Screen: Patient negative for fever greater than or equal to 101.5 degrees Fahrenheit, and additional compatible Ebola Virus Disease symptoms. Initial Sepsis Screen: Does the patient meet any 2 criteria? No. Patient's initial sepsis screen is negative. Does the patient have a suspected source of infection? No. Patient's initial sepsis screen is negative. Risk Assessment: Do you want to hurt yourself or someone else? Patient reports no desire to harm self or others. Onset of symptoms was January 13, 2023. 02:25 Method Of Arrival: EMS: [facility] pf1 02:25 Acuity: CANDACE 2 pf1 Historical: - Allergies: 04:01 Lisinopril; pf1 - PMHx: 04:01 Alcoholism; COPD; Hypertension; pf1 - PSHx: 04:01 Amputation of left index finger; pf1 - Immunization history:: Adult Immunizations not up to date, Client reports receiving the 2nd dose of the Covid vaccine, Last tetanus immunization: > 10 years ago Flu vaccine is not up to date. - Social history:: Smoking status: Patient reports the use of cigarette tobacco products, smokes two packs cigarettes per day. Patient reports abuse of alcohol daily several beers a day and reports active tobacco use 2 packs a day. - Family history:: not pertinent. - Hospitalizations: : Hospitalization on 01/11/2020 for with a departure AGAINST MEDICAL ADVICE. Screenin:25 [facility] ED Fall Risk Assessment (Adult) History of falling in the last 3 months, pf1 including since admission No falls in past 3 months (0 pts) Confusion or Disorientation No (0 pts) Intoxicated or Sedated No (0 pts) Impaired Gait No (0 pts) Mobility Assist Device Used No (0 pt) Altered Elimination No (0 pt) Score/Fall Risk Level 0 - 2 = Low Risk Oriented to surroundings, Maintained a safe environment, Educated pt \T\ family on fall prevention, incl call for assistance when getting out of bed, Assessed \T\ reinforced patient's understanding of fall precautions, Provided non-skid footwear, Hourly rounding (assess needs \T\ fall precautionary measures) done, Used ambulatory aids as needed (educated on \T\ assisted with), Used gait belt as appropriate. 02:25 Abuse screen: Denies threats or abuse. Nutritional screening: No deficits noted. pf1 Tuberculosis screening: No symptoms or risk factors identified. Assessment: 02:25 General: Appears in no apparent distress. uncomfortable, obese, well groomed, well pf1 developed, Behavior is cooperative, appropriate for age, anxious. 02:25 Pain: Complains of pain in chest Pain currently is 9 out of 10 on a pain scale. Pain pf1 began 2 hours ago. Neuro: Level of Consciousness is awake, alert, obeys commands, Oriented to person, place, time, situation. Cardiovascular: Capillary refill < 3 seconds Patient's skin is warm and dry. Chest pain. Respiratory: Reports shortness of breath on exertion Airway is patent Trachea midline Respiratory effort is labored, Respiratory pattern is regular, symmetrical, Breath sounds with wheezes bilaterally. 02:25 GI: No deficits noted. Abdomen is round distended, Bowel sounds present X 4 quads. Abd pf1 is soft and non tender X 4 quads. : No deficits noted. No signs and/or symptoms were reported regarding the genitourinary system. EENT: No deficits noted. No signs and/or symptoms were reported regarding the EENT system. Derm: Bruising that is dark purple, on right arm and left arm. Musculoskeletal: No deficits noted. Circulation, motion, and sensation intact. Capillary refill < 3 seconds, Range of motion: intact in all extremities. 03:30 Reassessment: Patient appears in no apparent distress at this time. No changes from pf1 previously documented assessment. Patient and/or family updated on plan of care and expected duration. Pain level reassessed. Patient is alert, oriented x 3, equal unlabored respirations, skin warm/dry/pink. Patient states symptoms have not improved. 04:32 Reassessment: Patient appears in no apparent distress at this time. No changes from pf1 previously documented assessment. Patient and/or family updated on plan of care and expected duration. Pain level reassessed. Patient is alert, oriented x 3, equal unlabored respirations, skin warm/dry/pink. Patient states symptoms have improved. 05:30 Reassessment: Patient appears in no apparent distress at this time. No changes from pf1 previously documented assessment. Patient and/or family updated on plan of care and expected duration. Pain level reassessed. Patient is alert, oriented x 3, equal unlabored respirations, skin warm/dry/pink. Patient states symptoms have improved. 06:30 Reassessment: Patient appears in no apparent distress at this time. Patient and/or pf1 family updated on plan of care and expected duration. Pain level reassessed. Patient is alert, oriented x 3, equal unlabored respirations, skin warm/dry/pink. Patient states feeling better. Patient states symptoms have improved. Vital Signs: 02:25 BP 168 / 91; Pulse 110; Resp 20; Temp 97.9; Pulse Ox 92% on R/A; Weight 84.82 kg; pf1 Height 5 ft. 4 in. ; Pain 9/10; 03:30 BP 141 / 95; Pulse 105; Resp 20; Pulse Ox 98% on 3 lpm NC; Pain 8/10; pf1 04:30 BP 155 / 91; Pulse 107; Resp 20; Pulse Ox 95% on 3 lpm NC; Pain 8/10; pf1 05:30 BP 155 / 83; Pulse 115; Resp 14; Pulse Ox 99% on 3 lpm NC; pf1 06:30 BP 148 / 67; Pulse 110; Resp 17; Pulse Ox 98% on 3 lpm NC; pf1 02:25 Body Mass Index 32.10 (84.82 kg, 162.56 cm) pf1 02:25 Pain Scale: Adult pf1 03:30 Pain Scale: Adult pf1 04:30 Pain Scale: Adult pf1 ED Course: 02:30 Patient has correct armband on for positive identification. Bed in low position. Call pf1 light in reach. Side rails up X2. 02:50 No provider procedures requiring assistance completed. Inserted saline lock: 20 gauge pf1 in left antecubital area, using aseptic technique. Blood collected. 02:55 Patient arrived in ED. jb4 02:56 Jose Crews MD is Attending Physician. sp4 03:37 Troponin HS Sent. ds4 03:37 Ptt, Activated Sent. ds4 03:37 PT-INR Sent. ds4 03:37 NT PRO-BNP Sent. ds4 03:37 BMP Sent. ds4 03:37 CBC with Diff Sent. ds4 03:37 CPK Sent. ds4 03:37 Hepatic Function Sent. ds4 03:37 Lipase Sent. ds4 03:37 Magnesium Sent. ds4 03:38 Alcohol Level Sent. ds4 03:46 Yary mclean, BRIGETTE is Primary Nurse. pf1 04:01 Triage completed. pf1 08:15 IV discontinued, intact, bleeding controlled, No redness/swelling at site. Pressure iw dressing applied. 08:15 Arm band placed on. 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): Aspirin PO 325 mg PO once pf1 03:55 Drug: DuoNeb Nebulize (3:1) (2.5 mg - 0.5 mg) 3 ml Route: Nebulizer; pf1 04:24 Follow up: Response: No adverse reaction; Marked relief of symptoms pf1 03:55 Drug: MethylPrednisoLONE IVP 125 mg Route: IVP; Site: left antecubital; pf1 04:24 Follow up: Response: No adverse reaction; Marked relief of symptoms pf1 03:55 Drug: Ketorolac IVP 30 mg Route: IVP; Site: left antecubital; pf1 04:24 Follow up: Response: No adverse reaction; Marked relief of symptoms; Pain is decreased; pf1 RASS: Alert and Calm (0) 06:13 Drug: LORazepam PO 2 mg Route: PO; pf1 07:06 Follow up: Response: No adverse reaction; Marked relief of symptoms pf1 06:13 Drug: DuoNeb Nebulize (3:1) (2.5 mg - 0.5 mg) 3 ml Route: Nebulizer; pf1 07:06 Follow up: Response: No adverse reaction; Marked relief of symptoms pf1 Medication: 08:15 VIS not applicable for this client. iw Outcome: 07:33 Discharge ordered by MD. monae 08:15 Discharged to home ambulatory. iw 08:15 Condition: good 08:15 Discharge instructions given to patient, Instructed on discharge instructions, follow up and referral plans. medication usage, Demonstrated understanding of instructions, follow-up care, medications, Prescriptions given X 2. 08:15 Patient left the ED. iw Signatures: Seda Street RN RN bb Rebeca Lizama RN RN iw Cedric Mathews ds4 Chivo Gill RN RN jb4 Yary mclean RN RN pf1 Jose Crews MD MD sp4 Corrections: (The following items were deleted from the chart) 03:43 03:43 DuoNeb Nebulize (3:1) (2.5 mg - 0.5 mg) 3 ml Nebulizer bb bb 03:45 03:44 DuoNeb Nebulize (3:1) (2.5 mg - 0.5 mg) 3 ml Nebulizer bb bb 04:28 02:25 Respiratory: Reports shortness of breath at rest on exertion pf1 pf1
--- NOTE | 2023-01-30 14:16 | EDPHYS ---
Physician Documentation [facility] Name: Randy Briones Age: 52 yrs Sex: Male : 1970 Arrival Date: 01/13/2023 Time: 02:55 Bed 4 Private MD: ED Physician Jose Crews HPI: 01/13 02:56 This 52 yrs old Male presents to ER via Unassigned with complaints of Acute sp4 shortness of breath. 03:58 52-year-old male presents with EMS for complaint of acute shortness of breath worsening sp4 just prior to arrival, patient reports ingestion of some amount of alcohol. . 04:07 Patient he is 52-year-old male who is well-known to this emergency room from multiple sp4 prior visits for shortness of breath, he has history of hypertension, COPD, tobacco abuse, alcoholism, GERD, obesity, and amputation of left index finger, patient was admitted to the hospital on 01/10/2023 for COPD exacerbation and alcohol abuse but left hospital AGAINST MEDICAL ADVICE the same day, patient's medications include amlodipine, metoprolol, prednisone, aspirin, Protonix, albuterol, fluticasone. Historical: - Allergies: 04:01 Lisinopril; pf1 - PMHx: 04:01 Alcoholism; COPD; Hypertension; pf1 - PSHx: 04:01 Amputation of left index finger; pf1 - Immunization history:: Adult Immunizations not up to date, Client reports receiving the 2nd dose of the Covid vaccine, Last tetanus immunization: > 10 years ago Flu vaccine is not up to date. - Social history:: Smoking status: Patient reports the use of cigarette tobacco products, smokes two packs cigarettes per day. Patient reports abuse of alcohol daily several beers a day and reports active tobacco use 2 packs a day. - Family history:: not pertinent. - Hospitalizations: : Hospitalization on 01/11/2020 for with a departure AGAINST MEDICAL ADVICE. ROS: 04:07 Constitutional: Negative for fever, chills, and weight loss, Eyes: Negative for injury, sp4 pain, redness, and discharge, ENT: Negative for injury, pain, and discharge, Neck: Negative for injury, pain, and swelling, Cardiovascular: Negative for chest pain, palpitations, bilateral lower edema Respiratory: Negative for pleuritic chest pain, positive for shortness of breath, cough, wheezing, increased work of breathing, dyspnea on exertion Abdomen/GI: Negative for abdominal pain, nausea, vomiting, diarrhea, and constipation, Back: Negative for injury and pain, : Negative for injury, bleeding, discharge, and swelling, MS/Extremity: Negative for injury and deformity, Skin: Negative for injury, rash, and discoloration, Neuro: Negative for headache, weakness, numbness, tingling, and seizure, Psych: Negative for depression, anxiety, suicide ideation, homicidal ideation, and hallucinations, positive for alcohol abuse Allergy/Immunology: Negative for hives, rash, and allergies, Endocrine: Negative for neck swelling, polydipsia, polyuria, polyphagia, and marked weight changes, Hematologic/Lymphatic: Negative for swollen nodes, abnormal bleeding, and unusual bruising. Exam: 04:12 Constitutional: This is a well developed, well nourished patient who is awake, alert, sp4 patient has chronic ill appearance and appears to be in respiratory distress, facial plethora, appears acutely intoxicated,. Head/Face: Normocephalic, atraumatic. Facial plethora Eyes: Pupils equal round and reactive to light, extra-ocular motions intact. Lids and lashes normal. Conjunctiva and sclera are non-icteric and not injected. Cornea within normal limits. Periorbital areas with no swelling, redness, or edema. ENT: Nares patent. No nasal discharge, no septal abnormalities noted. Tympanic membranes are normal and external auditory canals are clear. Oropharynx with no redness, swelling, or masses, exudates, or evidence of obstruction, uvula midline. Mucous membranes moist. Neck: Trachea midline, no thyromegaly or masses palpated, and no cervical lymphadenopathy. Supple, full range of motion without nuchal rigidity, or vertebral point tenderness. No Meningismus. Chest/axilla: Normal chest wall appearance and motion. Nontender with no deformity. No lesions are appreciated. Cardiovascular: Regular rate and rhythm with a normal S1 and S2. No gallops, murmurs, or rubs. Normal PMI, no JVD. No pulse deficits. Respiratory: Lungs have equal breath sounds bilaterally, clear to auscultation and percussion. No rales, rhonchi or noted. Positive for increased work of breathing, no retractions or nasal flaring. There is bilateral expiratory wheezing diffuse Abdomen/GI: Soft, non-tender, with normal bowel sounds. No distension or tympany. No guarding or rebound. No evidence of tenderness throughout. Back: No spinal tenderness. No costovertebral tenderness. Full range of motion. Skin: Warm, dry with normal turgor. Normal color with no rashes, no lesions, and no evidence of cellulitis. MS/ Extremity: Pulses equal, no cyanosis. Neurovascular intact. Full, normal range of motion. Neuro: Awake and alert, GCS 15, oriented to person, place, time, and situation. Cranial nerves II-XII grossly intact. Motor strength 5/5 in all extremities. Sensory grossly intact. Cerebellar exam normal. Normal gait. Psych: Awake, alert, with orientation to person, place and time. Behavior, mood, and affect are within normal limits. Acutely intoxicated 04:23 ECG was reviewed by the Attending Physician. EKG done at 2:39 AM sinus tachycardia at sp4 the rate of 110, left atrial enlargement, right bundle branch block, no ST elevation or depression, no ectopy, otherwise unremarkable Vital Signs: 02:25 BP 168 / 91; Pulse 110; Resp 20; Temp 97.9; Pulse Ox 92% on R/A; Weight 84.82 kg; pf1 Height 5 ft. 4 in. ; Pain 9/10; 03:30 BP 141 / 95; Pulse 105; Resp 20; Pulse Ox 98% on 3 lpm NC; Pain 8/10; pf1 04:30 BP 155 / 91; Pulse 107; Resp 20; Pulse Ox 95% on 3 lpm NC; Pain 8/10; pf1 05:30 BP 155 / 83; Pulse 115; Resp 14; Pulse Ox 99% on 3 lpm NC; pf1 06:30 BP 148 / 67; Pulse 110; Resp 17; Pulse Ox 98% on 3 lpm NC; pf1 02:25 Body Mass Index 32.10 (84.82 kg, 162.56 cm) pf1 02:25 Pain Scale: Adult pf1 03:30 Pain Scale: Adult pf1 04:30 Pain Scale: Adult pf1 MDM: 03:01 Patient medically screened. sp4 05:52 Differential Diagnosis sepsis, flu, COPD with acute exacerbation, alcohol intoxication, sp4 congestive heart failure,. Data reviewed: vital signs, nurses notes, EMS record, old medical records, lab test result(s), cardiac enzymes, CBC, electrolytes, hepatic panel, EKG, radiologic studies, plain films. Consideration of Admission/Observation Patient was admitted/placed on observation. Escalation of care including admission/observation considered. ED course: 52-year-old male with history of COPD and alcohol abuse presents with acute worsening of dyspnea associated with alcohol intoxication, patient was here in the ER for the same problem on 01/11/2023 but departed from the ER after becoming unhappy, today patient has responded to medications IV Solu-Medrol and breathing treatments and he was also given p.o. Ativan for tremors. 07:31 ED course: Patient has improved after DuoNeb's, p.o. Ativan, and other medications in [facility] ER, chest x-ray is clear and troponin is negative patient is stable for discharge home at this time with as needed medications for COPD. 01/13 02:58 Order name: BMP [facility] 01/13 02:58 Order name: CBC with Diff [facility] 01/13 02:58 Order name: CPK [facility] 01/13 02:58 Order name: Hepatic Function [facility] 01/13 02:58 Order name: Lipase [facility] 01/13 02:58 Order name: Magnesium [facility] 01/13 02:58 Order name: NT PRO-BNP [facility] 01/13 02:58 Order name: PT-INR [facility] 01/13 02:58 Order name: Ptt, Activated [facility] 01/13 02:58 Order name: Troponin HS [facility] 01/13 02:58 Order name: Alcohol Level [facility] 01/13 03:38 Order name: Protime (+INR); Complete Time: 04:22 EDMS 01/13 03:38 Order name: PTT, Activated Partial Thromb; Complete Time: 04:22 EDMS 01/13 03:42 Order name: CBC with Automated Diff; Complete Time: 04:22 EDMS 01/13 03:52 Order name: Alcohol Serum/Plasma; Complete Time: 04:22 EDMS 01/13 03:55 Order name: Basic Metabolic Panel; Complete Time: 04:22 EDMS 01/13 03:55 Order name: Liver (Hepatic) Function; Complete Time: 04:22 EDMS 01/13 03:55 Order name: Creatine Phosphokinase; Complete Time: 04:22 EDMS 03/07 03:55 Order name: Troponin High Sensitivity; Complete Time: 04:22 EDMS 01/13 03:55 Order name: NT PRO-BNP; Complete Time: 04:22 EDMS 01/13 03:55 Order name: Magnesium; Complete Time: 04:22 EDMS 01/13 03:55 Order name: Lipase; Complete Time: 04:22 EDMS 01/13 02:58 Order name: XRAY CXR (1 view) sp4 01/13 02:58 Order name: EKG; Complete Time: 02:59 sp4 01/13 02:58 Order name: Cardiac monitoring; Complete Time: 03:37 sp4 01/13 02:58 Order name: EKG - Nurse/Tech; Complete Time: 03:36 sp4 01/13 02:58 Order name: IV Saline Lock; Complete Time: 03:36 sp4 01/13 02:58 Order name: Labs collected and sent; Complete Time: 03:36 sp4 01/13 02:58 Order name: O2 Per Protocol; Complete Time: 03:37 sp4 01/13 02:58 Order name: O2 Sat Monitoring; Complete Time: 03:37 sp4 EC:23 Rate is 110 beats/min. Rhythm is regular, Sinus tachycardia. QRS [place] is Normal. NE sp4 interval is normal. No ST changes noted. Clinical impression: No evidence of ischemia. Interpreted by me. Administered Medications: 03:46 CANCELLED (already given per EMS DISTRICT MANAGER [employer]IMARY [employer] SALES): Aspirin PO 325 mg PO once pf1 03:55 Drug: DuoNeb Nebulize (3:1) (2.5 mg - 0.5 mg) 3 ml Route: Nebulizer; pf1 04:24 Follow up: Response: No adverse reaction; Marked relief of symptoms pf1 03:55 Drug: MethylPrednisoLONE IVP 125 mg Route: IVP; Site: left antecubital; pf1 04:24 Follow up: Response: No adverse reaction; Marked relief of symptoms pf1 03:55 Drug: Ketorolac IVP 30 mg Route: IVP; Site: left antecubital; pf1 04:24 Follow up: Response: No adverse reaction; Marked relief of symptoms; Pain is decreased; pf1 RASS: Alert and Calm (0) 06:13 Drug: LORazepam PO 2 mg Route: PO; pf1 07:06 Follow up: Response: No adverse reaction; Marked relief of symptoms pf1 06:13 Drug: DuoNeb Nebulize (3:1) (2.5 mg - 0.5 mg) 3 ml Route: Nebulizer; pf1 07:06 Follow up: Response: No adverse reaction; Marked relief of symptoms pf1 Disposition Summary: 01/13/23 07:33 Discharge Ordered Location: Home sp4 Problem: an acute exacerbation sp4 Symptoms: have improved sp4 Condition: Stable sp4 Diagnosis - COPD/ Chronic obstructive pulmonary disease with (acute) exacerbation sp4 - Alcohol abuse sp4 - Alcohol dependence sp4 Followup: sp4 - With: Private Physician - When: 7 - 10 days - Reason: Re-evaluation by your physician Discharge Instructions: - Discharge Summary Sheet sp4 - Chronic Obstructive Pulmonary Disease, [id number] sp4 Forms: - Work release form eb - Thank You Letter sp4 Prescriptions: - Ventolin HFA 90 mcg/actuation Inhalation HFA Aerosol Inhaler - inhale 2 puff by INHALATION route every 4 hours as needed for shortness of sp4 breath or wheezing; 1 unit; Refills: 0, Product Selection Permitted - Prednisone 20 mg Oral Tablet - take 2 tablets by ORAL route once daily for 5 days; 10 tablet; Refills: 0, sp4 Product Selection Permitted Signatures: Dispatcher [employer] EDSeda Palmer RN RN Yary mckeon RN RN pf1 Jose Crews MD MD sp4 Corrections: (The following items were deleted from the chart) 03:46 02:58 Aspirin PO 325 mg PO once ordered. sp4 pf1 04:10 03:58 2-year-old male presents with EMS for complaint of acute shortness of breath sp4 worsening just prior to arrival, patient reports ingestion of some amount of alcohol. . sp4
== END 2023-01-13 08:15 | disposition home or self-care (01) ==
LOC: ER 02:28
DX: J44.1 Chronic obstructive pulmonary disease with (acute) exacerbation (principal); F10.20 Alcohol dependence, uncomplicated; I10 Essential (primary) hypertension; Z88.8 Allergy status to other drugs, medicaments and biological substances
CPT/HCPCS: 93005; 85025; 80048; 36415; 83735; 82550; 85610; 80076; 85730; 84484; 83690; 83880; 71045; 94640; 96375; 96374; 99284; J7613 ×2; J7644 ×2; J2930; G0480

== ENCOUNTER 2023-04-04 15:46 | Emergency (ER) | payer OTHER ==
--- OUTSIDE RECORDS SUMMARY | 2023-04-04 15:49 | XMS REPORT | Continuity of Care Document ---
:1970 Author Organization [facility] t Address [address] [place] [address] Care Team Providers Name Role Phone LOPEZGIRISH FelizDELPHINEROMEO Primary Care Physician Unavailable Melinda Maciel DO Attending Clinician MELINDA MACIEL Attending Clinician Unavailable CHRISTY SHAW Attending Clinician Unavailable Christy Shaw MD Attending Clinician DENISE SUNG Attending Clinician Unavailable KARLEY ADAMS Attending Clinician Unavailable MELINDA MACIEL Admitting Clinician Unavailable CHRISTY SHWA Admitting Clinician Unavailable Problems Condition Condition Condition Status Onset Resolution Last Treating Co mments Source Name Details Category Date Date Treatment Clinician Date Acute Acute Disease Active Univers exacerbati exacerbati 5-16 it y of on of on of 00:00: [place] chronic chronic 00 Medical obstructiv obstructiv Br anch e e pulmonary pulmonary disease disease (COPD) (COPD) Obesity Obesity Disease Active 2018 Univers (BMI (BMI 5-16 ity of 30-39.9) 30-39.9) 00:00: [place] [address] Medical Branch Allergies, Adverse Reactions, Alerts Allergy Allergy Status Severity Reaction(s) Onset Inactive Treating Comm ents Source Name Type Date Date Clinician Lisinopr Propensi Active Anaphylaxis 2018-0 U nivers il ty to 5-16 ity of adverse 00:00: [place] reaction 00 Medical s Branch LISINOPR DRUG Active Anaphylaxis Uni vers [place] INGREDI 5-16 ity of 00:00: [address] Social History Social Habit Start Date Stop Date Quantity Comments Source History of Smokes tobacco University of tobacco use daily [facility] Exposure to 2022-10-04 2022-10-[address] [facility] SARS-CoV-2 00:00:00 10:25:00 [facility] [place] Alcohol intake 2022-03-09 2022-03-09 4.29 /d University 00:00:00 00:00:[address] [facility] Tobacco use and 2018-03-24 2018-03-24 User of smokeless Un iversity of exposure 00:00:00 00:00:[address] [facility] Tobacco Comment 2018-03-24 2018-03-24 trying to quit Unive rsity of 00:00:00 00:00:[address] [facility] Sex Ass[birth year] At [birth year] Universit y of 00:00:00 00:00:[address] [facility] Smoking Status Start Date Stop Date Source Smokes tobacco daily 2018-03-24 00:00:[address] [facility] Medications Ordered Filled Start Stop Current Ordering Indication Dosage Frequency Signature Comments Components Source Medication Medication Date Date Medication? Clinician (SIG) Name Name iopamidol 2021-11- No [id number] 70mL 70 mL, U nivers (ISOVUE 12-15- Intravenou ity o f 370-500 mL) 18:30: 18:30 s, ONCE, 1 [place] injection 00 :00 dose, On Medica l 70 mL [facility] 10/14/22 at 1230, Routine methylpredn 2021-11 Yes 125mg 125 mg, Un odalys isolone sod 12-15 Intravenou it y of succ 18:00: s, Q6H, [place] (SOLU-MEDRO 00 First dose Me dical L) on [facility] injection 10/14/22 at 125 mg 1200, Until Discontinu ed, Routine furosemide 2021-11- No 40mg 40 mg, IV U nivers (LASIX) 12-15 12- Push, ity of injection 17:45: 16:39 ONCE, 1 [place] 40 [place] 00 :00 dose, On Medical [facility] 10/14/22 at 1145, LAURYN ipratropium 2021-11- [...] 10/14/22 at 1045, Routine levoFLOXaci 2021-11 Yes [id number] 750mg Take 1 Univers n 750 mg [...] of succ 11:45: 10:43 s, ONCE, 1 [place] (SOLU-MEDRO 00 :00 dose, On Medi keo [...] 0530, solution 3 Routine mL albuterol Yes [id number] 2{puff} Inhale 2 Univers 90 4-14 Puffs ity of mcg/actuati 00:00: every 4 Sa[place] as on inhaler 00 (four) Medical hours as Branch needed for Wheezing or Shortness of Breath. albuterol Yes [id number] 2.5mg Inhale 3 Univers 2.5 mg /3 4-14 mL every 4 ity of mL (0.083 00:00: (four) [place] %) 00 hours. May Medical nebulizer also Branch solution nebulize one extra every 6 hours. budesonide- Yes [id number] 2{puff} Inhale 2 Univers formoteroL 4-14 Puffs 2 ity of 160-4.5 00:00: (two) [place] mcg/actuati 00 times Medical on inhaler daily. Branch triamterene Yes [id number] 1{tbl} Take 1 Univers -hydrochlor 4-14 tablet by ity of othiazid 00:00: mouth [place] 37.5-25 mg 00 daily. Medical tablet Branch chlordiazeP Yes [id number] 25mg Take 1 Univers OXIDE 25 mg 4-14 capsule by it y of capsule 00:00: mouth [place] 00 every 6 Medical (six) Branch hours as needed for Anxiety, Agitation, Heart Rate => 100 or Detox. predniSONE Yes [id number] TAKE ONE Univers 10 mg 4-14 TABLET BY ity of tablet 00:00: MOUTH [place] 00 DAILY Medical Branch albuterol Yes [id number] 2{puff} Inhale 2 Univers 90 4-14 Puffs ity of mcg/actuati 00:00: every 4 [place] as on inhaler 00 (four) Medical hours as Branch needed for Wheezing or Shortness of Breath. albuterol Yes [id number] 2.5mg Inhale 3 Univers 2.5 mg /3 4-14 mL every 4 ity of mL (0.083 00:00: (four) [place] %) 00 hours. May Medical nebulizer also Branch solution nebulize one extra every 6 hours. budesonide- Yes [id number] 2{puff} Inhale 2 Univers formoteroL 4-14 Puffs 2 ity of 160-4.5 00:00: (two) [place] mcg/actuati 00 times Medical on inhaler daily. Branch triamterene Yes [id number] 1{tbl} Take 1 Univers -hydrochlor 4-14 tablet by ity of othiazid 00:00: mouth [place] 37.5-25 mg 00 daily. Medical tablet Branch chlordiazeP Yes [id number] 25mg Take 1 Univers OXIDE 25 mg 4-14 capsule by it y of capsule 00:00: mouth [place] 00 every 6 Medical (six) Branch hours as needed for Anxiety, Agitation, Heart Rate => 100 or Detox. predniSONE Yes [id number] TAKE ONE Univers 10 mg 4-14 TABLET BY ity of tablet 00:00: MOUTH [place] 00 DAILY Medical Branch albuterol Yes [id number] 2{puff} Inhale 2 Univers 90 4-14 Puffs ity of mcg/actuati 00:00: every 4 [place] as on inhaler 00 (four) Medical hours as Branch needed for Wheezing or Shortness of Breath. albuterol Yes [id number] 2.5mg Inhale 3 Univers 2.5 mg /3 4-14 mL every 4 ity of mL (0.083 00:00: (four) [place] %) 00 hours. May Medical nebulizer also Branch solution nebulize one extra every 6 hours. budesonide- Yes [id number] 2{puff} Inhale 2 Univers formoteroL 4-14 Puffs 2 ity of 160-4.5 00:00: (two) [place] mcg/actuati 00 times Medical on inhaler daily. Branch triamterene Yes [id number] 1{tbl} Take 1 Univers -hydrochlor 4-14 tablet by ity of othiazid 00:00: mouth [place] 37.5-25 mg 00 daily. Medical tablet Branch chlordiazeP Yes [id number] 25mg Take 1 Univers OXIDE 25 mg 4-14 capsule by it y of capsule 00:00: mouth [place] 00 every 6 Medical (six) Branch hours as needed for Anxiety, Agitation, Heart Rate => 100 or Detox. predniSONE Yes [id number] TAKE ONE Univers 10 mg 4-14 TABLET [...] by ity of capsule 16:32: mouth 2 [place] 14 (two) Medical times [place] daily as needed ([facility] pain). foLIC acid Yes 1mg Take 1 mg Un odalys 1 mg tablet 5-18 by mouth ity of 16:32: daily. [place] 14 Medical Branch triamterene 2017-0 Yes 1{capsu Take 1 U nivers -hydrochlor 5-18 le} capsule by it y of othiazide 16:32: mouth [place] 37.5-25 mg 14 every Medical per capsule morning. Bran ch amLODIPine 2018-0 Yes 10mg Take 10 mg U nivers 10 mg 5-18 by mouth ity of tablet 16:32: at [place] 14 bedtime. Medical Branch gabapentin 2018-0 Yes 100mg Take 100 Un odalys 100 mg 5-18 mg by ity of capsule 16:32: mouth 2 [place] 14 (two) Medical times Branch daily as needed ([facility] pain). foLIC acid 2018-0 Yes 1mg Take 1 mg Un odalys 1 mg tablet 5-18 by mouth ity of 16:32: daily. [place] [address] Medical Branch triamterene 0 Yes 1{capsu Take 1 U nivers -hydrochlor 5-18 le} capsule by it y of othiazide 16:32: mouth [place] 37.5-25 mg 14 every Medical per capsule morning. Bran ch amLODIPine 2018-0 Yes 10mg Take 10 mg U nivers 10 mg 5-18 by mouth ity of tablet 16:32: at [place] [address] bedtime. Medical Branch gabapentin 2018-0 Yes 100mg Take 100 Un odalys 100 mg 5-18 mg by ity of capsule 16:32: mouth 2 [place] 14 (two) Medical times [place] daily as needed ([facility] pain). foLIC acid 2018-0 Yes 1mg Take 1 mg Un odalys 1 mg tablet 5-18 by mouth ity of 16:32: daily. [address] triamterene 2017-0 Yes 1{capsu Take 1 U nivers -hydrochlor 5-18 le} capsule by it y of othiazide 16:32: mouth [place] 37.5-25 mg 14 every Medical per capsule morning. Bran ch amLODIPine 2017-0 Yes 10mg Take 10 mg U nivers 10 mg 5-18 by mouth ity of tablet 16:32: at [place] 14 bedtime. Medical Branch budesonide- 2017-0 Yes [...] Immunizations Ordered Filled Immunization Date Status Comments [facility] e Immunization Name Name SARS-COV-2 COVID-19 2021-02-03 Completed Unive rsity of PFIZER VACCINE 00:00:00 [facility] SARS-COV-2 COVID-19 2021-02-03 Completed Unive rsity of PFIZER VACCINE 00:00:00 [facility] SARS-COV-2 COVID-19 2021-02-03 Completed Unive rsity of PFIZER VACCINE 00:00:00 [facility] SARS-COV-2 COVID-19 2021-01-13 Completed Unive rsity of PFIZER VACCINE 00:00:00 [facility] SARS-COV-2 COVID-19 2021-01-13 Completed Unive rsity of PFIZER VACCINE 00:00:00 [facility] SARS-COV-2 COVID-19 2021-01-13 Completed Unive rsity of PFIZER VACCINE 00:00:00 [facility] Pneumococcal 2018-03-26 Completed University o f Polysaccharide, 00:00:00 [facility] ical PPSV23 (PNEUMOVAX) [place] Influenza Virus 2018-03-26 Completed Universit y of Vaccine Quad IM 3+ 00:00:00 [facility] Pneumococcal 2018-03-26 Completed University o f Polysaccharide, 00:00:00 [place] Med ical PPSV23 (PNEUMOVAX) [place] Influenza Virus 2018-03-26 Completed Universit y of Vaccine Quad IM 3+ 00:00:00 [facility] Pneumococcal 2018-03-26 Completed University o f Polysaccharide, 00:00:00 [place] Med ical PPSV23 (PNEUMOVAX) [place] Influenza Virus 2018-03-26 Completed Universit y of Vaccine Quad IM 3+ 00:00:00 [facility] Vital Signs Vital Name Observation Time Observation Value Comments Source Systolic blood 2022-10-14 19:43:00 111 mm[Hg] Univer sity of pressure [facility] Diastolic blood 2022-10-14 19:43:00 74 mm[Hg] Unive rsity of pressure [place] [facility] Heart rate 2022-10-14 19:43:00 98 /min Universi ty of [place] [facility] Body temperature 2022-10-14 19:43:00 36.39 Debbie Univ ersity of [place] [facility] Respiratory rate 2022-10-14 19:43:00 22 /min Univ ersity of [place] [facility] Oxygen saturation in 2022-10-14 19:43:00 94 /min University of Arterial blood by [facility] keo Pulse oximetry Branch Body height 2022-10-14 16:13:00 162.6 cm Universi ty of [place] [facility] Body weight 2022-10-14 16:13:00 81.647 kg Universi ty of [place] [facility] BMI 2022-10-14 16:13:00 30.90 kg/m2 Universi ty of [place] [facility] Systolic blood 2022-03-12 10:13:00 119 mm[Hg] Univer sity of pressure [place] [facility] Diastolic blood 2022-03-12 10:13:00 75 mm[Hg] Unive rsity of pressure [place] [facility] Heart rate 2022-03-12 10:13:00 105 /min Universi ty of [place] [facility] Body temperature 2022-03-12 10:13:00 37.28 Debbie Univ ersity of [place] [facility] Respiratory rate 2022-03-12 10:13:00 19 /min Univ ersity of [place] [facility] Body height 2022-03-12 10:13:00 162.6 cm Universi ty [facility] [place] [facility] Body weight 2022-03-12 10:13:00 99.791 kg Universi ty of [place] [facility] BMI 2022-03-12 10:13:00 37.76 kg/m2 Universi ty of [place] [facility] Oxygen saturation in 2022-03-12 10:13:00 96 /min University of Arterial blood by [facility] keo Pulse oximetry Branch Systolic blood 2022-02-20 11:57:00 155 mm[Hg] Univer sity of pressure [place] [facility] Diastolic blood 2022-02-20 11:57:00 88 mm[Hg] Unive rsity of pressure [place] [facility] Heart rate 2022-02-20 11:57:00 105 /min Universi ty of [place] [facility] Respiratory rate 2022-02-20 11:57:00 18 /min [facility] Oxygen saturation in 2022-02-20 11:57:00 100 /min [facility] Arterial blood by [facility] Pulse oximetry Branch Body temperature 2022-02-20 09:25:00 37 Debbie [facility] Body height 2022-02-20 09:25:[address] [facility] Body weight 2022-02-20 09:25:[address] [facility] BMI 2022-02-20 09:25:00 36.39 kg/m2 [facility] Procedures Procedure Date / Time Performing Clinician Source Performed CT ABDOMEN PELVIS W 2022-10-14 17:33:[address] [facility] CONTRAST [facility] XR CHEST 1 VW 2022-10-14 17:10:37 [facility] TROPONIN I 2022-10-14 16:37:00 [facility] COMP. METABOLIC PANEL 2022-10-14 16:37:00 Melinda Maciel [facility] ([id number]) [facility] CBC WITH DIFF 2022-10-14 16:37:00 [facility] PROTHROMBIN TIME / INR 2022-10-14 16:37:00 Melinda Maciel [facility] URINALYSIS 2022-10-14 16:37:00 [facility] N-TERMINAL PRO-BNP 2022-10-14 16:37:00 Melinda Maciel [facility] CONSENT/REFUSAL FOR 2022-10-14 15:56:36 Doctor Unassigned, No Un [facility] [place] DIAGNOSIS AND TREATMENT Name Medical Branch CONSENT/REFUSAL FOR 2022-03-12 10:03:12 [facility] Name Medical Branch XR CHEST 1 VW 2022-02-20 09:59:00 Christy Shaw [facility] LIPASE 2022-02-20 09:30:00 Christy Shaw [facility] TROPONIN I 2022-02-20 09:30:00 Christy Shaw [facility] COMP. METABOLIC PANEL 2022-02-20 09:30:00 Christy Shaw [facility] ([id number]) [facility] CBC WITH DIFF 2022-02-20 09:30:00 Christy Shaw [facility] N-TERMINAL PRO-BNP 2022-02-20 09:30:[address] [facility] NOTICE OF PRIVACY 2022-02-20 09:15:02 Doctor Unassigned, No Univ [facility] PRACTICES Name [facility] Branch CONSENT/REFUSAL FOR 2022-02-20 09:14:47 Doctor Unassigned, No [facility] DIAGNOSIS AND TREATMENT Name [facility] Encounters Start End Encounter Admission Attending Care Care Encounter Source Date/Time Date/Time Type Type Clinicians Facility Department ID 2022-10-14 2022-10-14 Emergency [facility] [id number] Univers 10:07:00 14:39:00 Melinda SMITH [id number] i ty [facility] [id number] [facility] [id number] [address] 2022-10-14 2022-10-14 Emergency [facility] [id number] Univers 10:07:00 14:39:00 MELINDA radha [facility] 2022-03-12 2022-03-12 Emergency [facility] [id number] Univers 05:15:00 06:41:00 CHRISTY garcia [facility] 2022-03-12 2022-03-12 [facility] [id number] Univers 05:15:00 06:41:00 Christy SMITH [id number] ity [facility] [id number] [facility] [id number] [address] 2022-02-20 2022-02-20 Emergency [facility] [id number] Univers 04:17:00 07:16:00 [facility] 2022-02-20 [facility] [id number] Univers 04:17:00 07:16:00 Christy SMITH [id number] [facility] [id number] [facility] [id number] [facility] 084 Branch 2021-02-03 2021-02-03 Outpatient R PINEDA, [facility] [id number] Univers 11:10:00 11:10:00 [facility] 2021-01-13 2021-01-13 Outpatient [facility] [id number] Univers 11:20:00 11:20:00 [facility] 2020-11-10 2020-11-10 [facility] [id number] Univers 08:20:00 08:20:00 KARLEY [facility] Results Test Description Test Time Test Comments Results Result Comments Source TROPONIN I 2022-02-20 10:16:22 Test Item Value Reference Range Interpretation Comme nts TROPONIN I (test code = 0.007 ng/mL See_Comment [Au tomated message] The [id number]) system which ge nerated this result tra [...] biotin. Lab Interpretation Normal (test code = 92747-3) [facility] [id number] 10:13:01 Test Item Value Reference Range Interpretation Comments NT-proBNP (test code 52 pg/mL See_Comment [Autom ated = 4154457195) message] The system which generated this result transmitted reference range : <=125. The reference range was not used to interpret this result as normal/abnormal . LOUISE (test code = LOUISE) Biotin has been reported to cause a negative bias, interpret results relative to patient's use of biotin. Lab Interpretation Normal (test code = 52294-0) [facility]. METABOLIC PANEL ([id number])2022-02-20 10:04:02 Test Item Value Reference Range Interpretation Comments NA (test code = 137 mmol/L 135-145 5769708488) K (test code = 3.6 mmol/L 3.5-5.0 4529254744) CL (test code = 99 mmol/L 98-108 1454427940) CO2 TOTAL (test code = 25 mmol/L 23-31 1695086292) AGAP (test code = 2-16 7705926289) BUN (test code = 6 mg/dL 7-23 L 9442067639) GLUCOSE (test code = 88 mg/dL 70-110 7331980864) CREATININE (test code = 0.55 mg/dL 0.60-1.25 L 0085977335) TOTAL BILI (test code = 0.8 mg/dL 0.1-1.9 9709440163) CALCIUM (test code = 8.9 mg/dL 8.6-10.6 1455213124) T PROTEIN (test code = 7.5 g/dL 6.3-8.2 8790686532) ALBUMIN (test code = 4.8 g/dL 3.5-5.0 8261148402) ALK PHOS (test code = 113 U/L 34-122 4789430087) ALTv (test code = 84 U/L 5-50 H 1742-6) AST(SGOT) (test code = 107 U/L 13-40 H 8919569900) eGFR (test code = mL/min/1.73m2 8341254113) LOUISE (test code = LOUISE) Association of [...] tests). Lab Interpretation Abnormal (test code = 45769-7) [facility] [id number] 10:03:21 Test Item Value Reference Range Interpretation Comments LIPASE (test code = 9662496788) 193 U/L 0-220 Lab Interpretation (test code = Normal 17549-2) [facility] [id number] 09:39:17 Test Item Value Reference Range Interpretation Comments WBC (test code = See_Comment [Automated 4790-2) message] The sy stem which generated this result transmitted reference range : 4.20 - 10.70 10*3/?L. The reference range was not used to interpret this result as normal/abnormal . RBC (test code = See_Comment [Automated 769-8) message] The sy stem which generated this [...] RDW-SD (test code = 44.4 fL 38.5-51.6 31847-2) RDW-CV (test code = 11.9 % 12.1-15.4 L 788-0) PLT (test code = See_Comment [Automated 777-3) message] The sy stem which generated this result transmitted reference range : 150 - 328 10*3/ ?L. The reference r ernie was not used to interpret this result as normal/abnormal . MPV (test code = 9.2 fL 9.8-13.0 L 91112-5) NRBC/100 WBC (test See_Comment [Automat ed code = 1224905817) message] The system which generated this result transmitted reference range : 0.0 - 10.0 /100 WBCs. The refer ence range was not u sed to interpret th is result as normal/abnormal . NRBC x10^3 (test code <0.01 See_Comment [Auto mated = 7784220664) message] The s ystem which generated this result transmitted reference range : 10*3/?L. The reference range was not used to interpret this result as normal/abnormal . GRAN MAT (NEUT) % 69.9 % (test code = 770-8) IMM GRAN % (test code 1.50 % = 1075755527) LYMPH % (test code = 18.9 % 736-9) MONO % (test code = 7.0 % 5905-5) EOS % (test code = 1.9 % 713-8) BASO % (test code = 0.8 % 706-2) GRAN MAT x10^3(ANC) 7.15 10*3/uL 1.99-6.95 H (test code = 9971645656) IMM GRAN x10^3 (test 0.15 10*3/uL 0.00-0.06 H code = 4538848054) LYMPH x10^3 (test code 1.93 10*3/uL 1.09-3.23 = 731-0) MONO x10^3 (test code 0.72 10*3/uL 0.36-1.02 = 742-7) EOS x10^3 (test code = 0.19 10*3/uL 0.06-0.53 711-2) BASO x10^3 (test code 0.08 10*3/uL 0.01-0.09 = 704-7) Lab Interpretation Abnormal (test code = 85815-1) [facility]"
[2023-04-04 16:18] LABS: Absolute Lymphocytes (CBC) 2.2 K/uL (0.7-4.9); Hematocrit 45.1 % (39.6-49.0); MCV 100.5 fL (80-100); MPV 6.8 fL (7.6-11.3); RBC Red Blood Cell Count 4.48 M/uL (4.33-5.43)
[2023-04-04 16:29] LABS: Protime INR 0.89
[2023-04-04 16:39] LABS: Albumin 3.5 g/dL (3.4-5.0); Bilirubin Direct 0.2 mg/dL (0-0.2); Bilirubin Indirect, Calculated 0.3 mg/dL (0.2-0.8); Bilirubin Total 0.5 mg/dL (0.2-1.0); Magnesium 1.9 mg/dL (1.6-2.4); Potassium 3.6 mEq/L (3.5-5.1); Protein, Total 7.4 g/dL (6.4-8.2); Troponin High Sensitivity 3.7 pg/mL (<58.9)
[2023-04-04] MEDS ORDERED: MORPHINE 4 MG/ML SYR ONE ×2 (16:50→19:02)
[2023-04-04] MEDS ORDERED: ONDANSETRON 4 MG/2 ML VIAL ONE (16:50)
[2023-04-04 17:20] LABS: Barbiturates NEGATIVE (NEGATIVE); Benzodiazepines NEGATIVE (NEGATIVE); Cocaine NEGATIVE (NEGATIVE); METHAMPHETAM NEGATIVE (NEGATIVE); Methadone NEGATIVE (NEGATIVE); Opiates NEGATIVE (NEGATIVE); Phencyclidine NEGATIVE (NEGATIVE); THC Cannibis NEGATIVE (NEGATIVE)
--- NOTE | 2023-04-04 18:09 | RAD REPORT ---
EXAM DESCRIPTION: RADChest Single View04/04/2023 4:07 pm CLINICAL HISTORY: Chest pain;Cough COMPARISON: Chest Single View dated 02/10/2023; Chest Single View dated 01/13/2023; Chest Single View da sanjay 01/11/2023; Chest Single View dated 01/10/2023 TECHNIQUE: Portable AP view of the chest. FINDINGS: Trace effusion versus pleural thickening along the right minor fissure. Lungs are otherwis e clear No pneumothorax or sizable effusion. The cardiomediastinal contours are unremarkable. IMPRESSION: Trace effusion versus pleural thickening along the right minor fissure.
--- NOTE | 2023-04-04 20:32 | RAD REPORT ---
EXAM DESCRIPTION: CT - Chest For Pe Angio - 04/04/2023 7:14 pm CLINICAL HISTORY: CHEST PAIN COMPARISON: Thorax Wo Con dated 11/24/2022; Chest For Pe Angio dated 10/07/2021; Chest For Pe Angio d ated 02/12/2019; Chest For Pe Angio dated 07/19/2018 TECHNIQUE: Thin axial CT images of the chest were obtained following administration of 95 mL Isovue 370 IV contrast. Multiplanar reconstructions, and maximum intensity projection reconstructions were g enerated and reviewed. Exam utilizes a protocol for optimal evaluation of pulmonary arterial tree. All CT scans are performed using dose optimization technique as appropriate and may include automated exposure control or mA/KV adjustment according to patient size. FINDINGS: Pulmonary arteries are normal. No emboli or other suspicious finding. No acute or signific ant aorta findings. Segmental opacification of the medial right upper lobe anteriorly, abutting the minor fissure. Platel priyanka atelectasis in the lower lobes bilaterally, more so on the left. No mass or infiltrate in the roderick g parenchyma. No pleural thickening or pleural effusion. No pneumothorax. No abnormal mediastinal or hilar masses or lymphadenopathy seen. No chest wall mass or abnormal axill iary lymphadenopathy. Liver demonstrates diffuse parenchymal hypoattenuation suggesting steatosis. IMPRESSION: No evidence of acute central pulmonary emboli. No other acute findings in the chest. Atelectatic changes as above. Diffuse hepatic steatosis.
[2023-04-04] MEDS ORDERED: KETOROLAC 30 MG/ML INJ ONE (20:59)
[2023-04-04] MEDS ORDERED: LORazepam 2 MG/ML VIAL ONE (20:59)
--- NOTE | 2023-04-04 23:02 | EDPHYS ---
Physician Documentation [facility] Name: Randy Briones Age: 52 yrs Sex: Male : 1970 Arrival Date: 04/04/2023 Time: 15:46 Bed 16 Private MD: ED Physician Bg Briones HPI: 04/04 16:05 This 52 yrs old Male presents to ER via Ambulatory with complaints of Chest Pain. cp 16:05 The patient or guardian reports chest pain that is located primarily in the anterior cp chest wall, left. 16:05 Onset: 3 day(s) ago. The pain does not radiate. Associated signs and symptoms: cp Pertinent positives: cough, shortness of breath, Pertinent negatives: abdominal pain, diaphoresis, lower extremity pain, lower extremity swelling, vomiting. The chest pain is described as similar to pain when diagnosed with pneumonia. Duration: The patient or guardian reports a single episode, that is still ongoing. Severity of pain: in the emergency department the pain is unchanged despite home interventions. Historical: - Allergies: 16:00 Lisinopril; hb - PMHx: 16:00 Alcoholism; COPD; Hypertension; hb - PSHx: 16:00 Amputation of left index finger; hb - Immunization history:: Adult Immunizations up to date. - Social history:: Smoking status: Patient reports the use of cigarette tobacco products. ROS: 16:10 Constitutional: Negative for body aches, chills, fever, poor PO intake. cp 16:10 Eyes: Negative for injury, pain, redness, and discharge. cp 16:10 ENT: Negative for drainage from ear(s), ear pain, sore throat, difficulty swallowing, difficulty handling secretions. 16:10 Cardiovascular: Positive for chest pain, Negative for edema, palpitations. 16:10 Respiratory: Positive for cough, with no reported sputum, shortness of breath, at rest. 16:10 Abdomen/GI: Negative for abdominal pain, vomiting, diarrhea, constipation. Exam: 16:07 ECG was reviewed by the Attending Physician. cp 16:15 Constitutional: The patient appears in no acute distress, alert, awake, cp non-diaphoretic, non-toxic, well developed, well nourished, uncomfortable. 16:15 Head/Face: Normocephalic, atraumatic. cp 16:15 Eyes: Periorbital structures: appear normal, Conjunctiva: normal, no exudate, no injection, Sclera: no appreciated abnormality, Lids and lashes: appear normal, bilaterally. 16:15 ENT: External ear(s): are unremarkable, Nose: is normal, Mouth: Lips: moist, Oral mucosa: pink and intact, moist, Posterior pharynx: is normal, airway is patent, no erythema, no exudate. 16:15 Neck: ROM/movement: is normal, is supple, without pain, no range of motions limitations, no meningismus, no nuchal rigidity. 16:15 Chest/axilla: Inspection: normal, Palpation: crepitus, is not appreciated, tenderness, that is moderate, of the left lateral anterior chest and left lateral posterior chest. 16:15 Cardiovascular: Rate: tachycardic, Rhythm: regular, Edema: is not appreciated, JVD: is not appreciated. 16:15 Respiratory: the patient does not display signs of respiratory distress, Respirations: normal, no use of accessory muscles, no retractions, labored breathing, is not present, Breath sounds: bronchial sounds, that are mild, are heard diffusely, decreased breath sounds, that are mild, throughout, stridor, is not appreciated. 16:15 Abdomen/GI: Inspection: distension, is not seen, Bowel sounds: active, all quadrants, Palpation: soft, in all quadrants, nontender, moderate abdominal tenderness, in the anterior aspect of left lateral abdomen and posterior aspect of left lateral abdomen, rebound tenderness, is not appreciated. 16:15 Back: CVA tenderness, is absent. 16:15 Skin: cellulitis, is not appreciated, no rash present. 16:15 Neuro: Orientation: to person, place \T\ time. Mentation: is normal, Motor: moves all fours, strength is normal, Sensation: is normal. 21:00 ECG was reviewed by the Attending Physician. cp Vital Signs: 15:59 BP 123 / 73; Pulse 110; Resp 20; Temp 98.3; Pulse Ox 96% on 2 lpm NC; Weight 74.84 kg; hb Height 5 ft. 4 in. ; Pain 10/10; 16:15 BP 153 / 97; Pulse 82; Resp 16; Pulse Ox 97% on 2 lpm NC; db 17:30 BP 119 / 81; Pulse 76; Resp 16; Pulse Ox 95% on NC; db 18:30 BP 115 / 71; Pulse 74; Resp 16; Pulse Ox 96% on NC; db 22:30 BP 164 / 93; Pulse 89; Resp 16; Pulse Ox 93% on R/A; jb4 23:00 BP 155 / 86; Pulse 86; Resp 18; Temp 98.1; Pulse Ox 95% on R/A; rv 15:59 Body Mass Index 28.32 (74.84 kg, 162.56 cm) hb 15:59 Pain Scale: Adult hb MDM: 15:54 Patient medically screened. cp 23:00 Data reviewed: vital signs, nurses notes, lab test result(s), EKG, radiologic studies, cp CT scan, plain films. 23:00 Differential diagnosis: acute myocardial infarction, acute pericarditis, pericarditis, cp pleurisy, pneumonia, pneumothorax, pulmonary embolus, unstable angina. Consideration of Admission/Observation Escalation of care including admission/observation considered. I considered the following discharge prescriptions or medication management in the emergency department Medications were administered in the Emergency Department. See MAR. Independent interpretation of the following test(s) in the Emergency Department EKG: See my EKG interpretation above X-Ray: My interpretation is chest image negative for focal pneumonia. Care significantly affected by the following chronic conditions: Hypertension, Chronic Obstructive Pulmonary Disease, alcohol use. Counseling: I had a detailed discussion with the patient and/or guardian regarding: the historical points, exam findings, and any diagnostic results supporting the discharge/admit diagnosis, lab results, radiology results, the need for outpatient follow up, an collateral clerk, to return to the emergency department if symptoms worsen or persist or if there are any questions or concerns that arise at home. Response to treatment: the patient's symptoms have markedly improved after treatment, and as a result, I will discharge patient. 04/04 15:57 Order name: Basic Metabolic Panel; Complete Time: 17:27 cp 04/04 17:27 Interpretation: Normal except: NA 134; GLUC 107; BUN 4; CRE 0.52. cp 04/04 15:57 Order name: CBC with Diff; Complete Time: 17:27 cp 04/04 17:27 Interpretation: Normal except: MCV 100.5; MPV 6.8. cp 04/04 15:57 Order name: LFT's; Complete Time: 17:27 cp 04/04 15:57 Order name: Magnesium; Complete Time: 17:27 cp 04/04 15:57 Order name: NT PRO-BNP; Complete Time: 17:27 cp 04/04 15:57 Order name: PT-INR; Complete Time: 18:28 cp 04/04 15:57 Order name: Troponin HS; Complete Time: 17:27 cp 04/04 15:57 Order name: COVID-19 SARS RT PCR; Complete Time: 17:27 cp 04/04 15:57 Order name: Influenza Screen (a \T\ B); Complete Time: 17:27 cp 04/04 16:34 Order name: ETOH Level; Complete Time: 17:27 cp 04/04 17:27 Interpretation: Reviewed. 04/04 16:34 Order name: UDS; Complete Time: 17:27 cp 04/04 18:08 Order name: LAB Add On cp 04/04 18:11 Order name: D-Dimer; Complete Time: 18:28 EDMS 04/04 18:28 Interpretation: Reviewed. 04/04 18:31 Order name: Lipase; Complete Time: 19:11 cp 04/04 19:11 Interpretation: LIP 48; Reviewed. cp 04/04 20:32 Order name: Troponin High Sensitivity; Complete Time: 22:58 cp 04/04 15:57 Order name: XRAY Chest (1 view); Complete Time: 18:12 cp 04/04 18:12 Interpretation: Report review. 04/04 18:29 Order name: CT Chest For PE Angio; Complete Time: 20:41 cp 04/04 15:57 Order name: EKG; Complete Time: 15:57 cp 04/04 20:32 Order name: EKG; Complete Time: 20:33 cp 04/04 15:57 Order name: Cardiac monitoring; Complete Time: 16:11 cp 04/04 15:57 Order name: EKG - Nurse/Tech; Complete Time: 16:11 cp 04/04 15:57 Order name: IV Saline Lock; Complete Time: 16:11 cp 04/04 15:57 Order name: Labs collected and sent; Complete Time: 16:11 cp 04/04 15:57 Order name: O2 Per Protocol; Complete Time: 15:58 cp 04/04 15:57 Order name: O2 Sat Monitoring; Complete Time: 15:58 cp 04/04 20:32 Order name: EKG - Nurse/Tech; Complete Time: 21:12 cp EC:07 Rate is 89 beats/min. Rhythm is regular. KS interval is normal. QRS interval is cp prolonged at 106 msec. QT interval is normal. T waves are Inverted in leads aVL, aVR. Interpreted by me. Reviewed by me. 21:00 Rate is 74 beats/min. Rhythm is regular. KS interval is normal. QRS interval is cp prolonged at 106 msec. QT interval is normal. T waves are Inverted in leads aVL, aVR. Interpreted by me. Reviewed by me. Administered Medications: 16:47 Drug: morphine IVP or IV 4 mg Route: IVP; Infused Over: 4 mins; Site: right antecubital;db 21:07 Follow up: Response: No adverse reaction rv 16:47 Drug: Ondansetron IVP 4 mg Route: IVP; Site: right antecubital; db 21:07 Follow up: Response: No adverse reaction rv 19:05 Drug: morphine IVP or IV 4 mg Route: IVP; Infused Over: 4 mins; Site: right antecubital;jb4 21:07 Follow up: Response: No adverse reaction; Pain is decreased rv 21:06 Drug: Ketorolac IVP 15 mg Route: IVP; Site: right antecubital; rv 21:07 Drug: Ativan IVP 1 mg Route: IVP; Site: right antecubital; rv Disposition Summary: 04/04/23 23:01 Discharge Ordered Location: Home cp Problem: new cp Symptoms: have improved cp Condition: Stable cp Diagnosis - Chest pain, unspecified cp - Alcohol dependence with intoxication cp Followup: cp - With: Private Physician - When: 2 - 3 days - Reason: Recheck today's complaints Discharge Instructions: - Discharge Summary Sheet cp - Alcohol Intoxication cp - Nonspecific Chest Pain, Adult cp - Alcohol Use Disorder cp - Alcohol Abuse and Nutrition cp - Aspirin and Your Heart cp Forms: - Medication Reconciliation Form cp - Thank You Letter cp - Antibiotic Education cp - Prescription Opioid Use cp Prescriptions: - Diclofenac Sodium 75 mg Oral Tablet Sustained Release - take 1 tablet by ORAL route 2 times per day; 30 tablet; Refills: 0, Product cp Selection Permitted - Zithromax Z-Ahmet 250 mg Oral Tablet - take 1 tablet by ORAL route as directed for 5 days Day 1 - take two (2) tablets cp one time. Day 2, 3, 4 , 5 take one (1) tablet once daily.; 6 tablet; Refills: 0, Product Selection Permitted Signatures: Dispatcher [employer] EDWY Bg Pro PA PA cp Myra Sandoval, RN RN Chivo Gill RN RN jb4 Darrius Nayak RN RN rv Anna Lamb RN RN db Corrections: (The following items were deleted from the chart) 19:13 18:09 D-DIMER+COAG.LAB.BRZ ordered. [facility] 04/05 23:22 05 16:05 Severity of pain: in the emergency department the pain is unchanged despite cp EMS interventions, cp
--- NOTE | 2023-04-04 23:02 | ER ---
Nurse's Notes [facility] Name: Randy Briones Age: 52 yrs Sex: Male : 1970 Arrival Date: 04/04/2023 Time: 15:46 Bed 16 Private MD: Diagnosis: Chest pain, unspecified;Alcohol dependence with intoxication Presentation: 04/04 15:59 Chief complaint: EMS states: Left sided chest pain x 3 days. Also reports increased hb cough and SOB, worse than normal. 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 Coronavirus screen: At this time, the client does not indicate any symptoms associated with coronavirus-19. Ebola Screen: No symptoms or risks identified at this time. Initial Sepsis Screen: Does the patient meet any 2 criteria? No. Patient's initial sepsis screen is negative. Does the patient have a suspected source of infection? No. Patient's initial sepsis screen is negative. Risk Assessment: Do you want to hurt yourself or someone else? Patient reports no desire to harm self or others. Onset of symptoms was April 01, 2023. 15:59 Method Of Arrival: Ambulatory hb 15:59 Acuity: CANDACE 3 hb Triage Assessment: 16:33 General: Appears uncomfortable, Behavior is cooperative. Pain: Denies pain. db Historical: - Allergies: 16:00 Lisinopril; hb - PMHx: 16:00 Alcoholism; COPD; Hypertension; hb - PSHx: 16:00 Amputation of left index finger; hb - Immunization history:: Adult Immunizations up to date. - Social history:: Smoking status: Patient reports the use of cigarette tobacco products. Screenin:37 [facility] ED Fall Risk Assessment (Adult) History of falling in the last 3 months, db including since admission No falls in past 3 months (0 pts) Confusion or Disorientation No (0 pts) Intoxicated or Sedated No (0 pts) Impaired Gait No (0 pts) Mobility Assist Device Used No (0 pt) Altered Elimination No (0 pt) Score/Fall Risk Level 0 - 2 = Low Risk Oriented to surroundings, Maintained a safe environment. Abuse screen: Denies threats or abuse. Denies injuries from another. Nutritional screening: No deficits noted. Tuberculosis screening: No symptoms or risk factors identified. Assessment: 16:36 Reassessment: Patient and/or family updated on plan of care and expected duration. Pain db level reassessed. Patient is alert, oriented x 3, equal unlabored respirations, skin warm/dry/pink. SOB x 3 days. General: Appears in no apparent distress. comfortable. Neuro: Level of Consciousness is awake, alert, obeys commands, Oriented to person, place, time, situation. Respiratory: Airway is patent Respiratory effort is even, unlabored, Respiratory pattern is regular, symmetrical, Breath sounds are coarse. 17:30 Reassessment: Patient appears in no apparent distress at this time. Patient and/or db family updated on plan of care and expected duration. Pain level reassessed. Patient is alert, oriented x 3, equal unlabored respirations, skin warm/dry/pink. 18:30 Reassessment: Patient appears in no apparent distress at this time. Patient and/or db family updated on plan of care and expected duration. Pain level reassessed. complaining of left lung chest and rib pain. notified provider. Pain: Complains of pain in left chest and ribs. 23:16 Reassessment: Patient appears in no apparent distress at this time. Patient and/or jb4 family updated on plan of care and expected duration. Pain level reassessed. Patient is alert, oriented x 3, equal unlabored respirations, skin warm/dry/pink. Pt ambulating with steady gait. Denies questions or concerns, verbalized understanding of follow up instructions. Vital Signs: 15:59 BP 123 / 73; Pulse 110; Resp 20; Temp 98.3; Pulse Ox 96% on 2 lpm NC; Weight 74.84 kg; hb Height 5 ft. 4 in. ; Pain 10/10; 16:15 BP 153 / 97; Pulse 82; Resp 16; Pulse Ox 97% on 2 lpm NC; db 17:30 BP 119 / 81; Pulse 76; Resp 16; Pulse Ox 95% on NC; db 18:30 BP 115 / 71; Pulse 74; Resp 16; Pulse Ox 96% on NC; db 22:30 BP 164 / 93; Pulse 89; Resp 16; Pulse Ox 93% on R/A; jb4 23:00 BP 155 / 86; Pulse 86; Resp 18; Temp 98.1; Pulse Ox 95% on R/A; rv 15:59 Body Mass Index 28.32 (74.84 kg, 162.56 cm) hb 15:59 Pain Scale: Adult hb ED Course: 15:53 Patient arrived in ED. eb 15:54 Bg Pro PA is PHCP. cp 15:54 Bg Briones MD is Attending Physician. cp 16:00 Triage completed. hb 16:01 Arm band placed on. hb 16:08 XRAY Chest (1 view) In Process Unspecified. EDMS 16:11 Basic Metabolic Panel Sent. mm9 16:11 CBC with Diff Sent. mm9 16:11 LFT's Sent. mm9 16:11 Magnesium Sent. mm9 16:11 NT PRO-BNP Sent. mm9 16:11 PT-INR Sent. mm9 16:11 Troponin HS Sent. mm9 16:12 Patient has correct armband on for positive identification. Placed in gown. Bed in low mm9 position. Call light in reach. Client placed on continuous cardiac and pulse oximetry monitoring. NIBP monitoring applied. dog control officer on. Pulse ox on. NIBP on. 16:12 Influenza Screen (a \T\ B) Sent. mm9 16:12 COVID-19 SARS RT PCR Sent. mm9 16:12 Initial lab(s) drawn, by me, sent to lab. EKG done, by ED staff, reviewed by Bg Briones MD COVID swab sent to lab. Flu and/or RSV swab sent to lab. 16:32 Anna Lamb, RN is Primary Nurse. db 16:47 Maintain EMS IV. Dressing intact. Good blood return noted. Site clean \T\ dry. Gauge \T\ db site: right 20 G AC. 19:16 CT Chest For PE Angio In Process Unspecified. EDMS 22:30 No provider procedures requiring assistance completed. IV discontinued, intact, jb4 bleeding controlled, No redness/swelling at site. Pressure dressing applied. Administered Medications: 16:47 Drug: morphine IVP or IV 4 mg Route: IVP; Infused Over: 4 mins; Site: right antecubital;db 21:07 Follow up: Response: No adverse reaction rv 16:47 Drug: Ondansetron IVP 4 mg Route: IVP; Site: right antecubital; db 21:07 Follow up: Response: No adverse reaction rv 19:05 Drug: morphine IVP or IV 4 mg Route: IVP; Infused Over: 4 mins; Site: right antecubital;jb4 21:07 Follow up: Response: No adverse reaction; Pain is decreased rv 21:06 Drug: Ketorolac IVP 15 mg Route: IVP; Site: right antecubital; rv 21:07 Drug: Ativan IVP 1 mg Route: IVP; Site: right antecubital; rv Medication: 16:37 VIS not applicable for this client. db Outcome: 23:01 Discharge ordered by MD. cp 23:35 Discharged to home ambulatory. rv 23:35 Condition: good 23:35 Discharge instructions given to patient, Instructed on discharge instructions, follow up and referral plans. medication usage, Demonstrated understanding of instructions, follow-up care, medications, Prescriptions given X 2. 23:36 Patient left the ED. rv Signatures: Dispatcher [employer] EDMS Bg Pro PA PA cp Baxter, Heather, RN RN Chivo Gill RN RN jb4 Marylin Covarrubias Ronaldo, RN RN rv Anna Lamb RN RN db Jenniffer Foster mm9 Corrections: (The following items were deleted from the chart) 19:13 16:15 BP 153 / 97; Pulse 82bpm; Resp 16bpm; Pulse Ox 97% RA; db db
[2023-04-05 00:23] VITALS: BP 155/86; TEMP 98.1; O2SAT 95
--- NOTE | 2023-04-05 07:26 | EKG ---
Test Date: 2023-04-04 Test Time: 20:55:40 Music Composer: RV MEASUREMENT RESULTS: Intervals: Rate: 74 DE: 126 QRSD: 106 QT: 416 QTc: 461 [place]: P: 69 DE: 126 QRS: 88 T: 93 INTERPRETIVE STATEMENTS: Normal sinus rhythm with sinus arrhythmia Nonspecific ST and T wave abnormality Prolonged QT Abnormal ECG Compared to ECG 04/04/2023 16:00:14 ST (T wave) deviation now present Prolonged QT interval now present Electronically Signed On 04-05-23 07:25:08 CDT by Clovis Barrios
--- NOTE | 2023-04-05 07:27 | EKG ---
Test Date: 2023-04-04 Test Time: 16:00:14 Temp Recruiter: REI MEASUREMENT RESULTS: Intervals: Rate: 89 MN: 132 QRSD: 106 QT: 376 QTc: 457 [place]: P: 66 MN: 132 QRS: 89 T: 79 INTERPRETIVE STATEMENTS: Normal sinus rhythm Normal ECG Compared to ECG 02/10/2023 00:07:05 Sinus arrhythmia no longer present Right-axis deviation no longer present Prolonged QT interval no longer present Electronically Signed On 04-05-23 07:25:18 CDT by Clovis Barrios
== END 2023-04-04 23:36 | disposition home or self-care (01) ==
LOC: ER 15:46
DX: R07.89 Other chest pain (principal); F10.229 Alcohol dependence with intoxication, unspecified; I10 Essential (primary) hypertension; Z20.822 Contact with and (suspected) exposure to COVID-19; Z88.8 Allergy status to other drugs, medicaments and biological substances; Z72.0 Tobacco use
CPT/HCPCS: 93005 ×2; 85025; 80048; 36415; 83735; 85610; 85379; 80076; 84484 ×2; 83690; 83880; 87635; 80307; 87804 ×2; 71275; 71045; 96375; 96374; 99285; Q9967; J2405; G0480

== ENCOUNTER 2023-04-12 14:17 | Emergency (ER) | payer OTHER ==
--- OUTSIDE RECORDS SUMMARY | 2023-04-12 14:21 | XMS REPORT | Continuity of Care Document ---
:1970 [facility] t Address [address] [facility]. [address] [place] [address] Care Team Providers Name Role Phone LOPEZGIRISH [...] y of on of on of 00:00: [place] chronic chronic 00 Medical obstructiv obstructiv Br anch e e pulmonary pulmonary disease disease (COPD) (COPD) Obesity Obesity Disease Active 2018 Univers (BMI (BMI 5-16 ity of 30-39.9) 30-39.9) 00:00: [place] [address] Medical Branch Allergies, Adverse Reactions, Alerts Allergy Allergy Status Severity Reaction(s) Onset Inactive Treating Comm ents Source Name Type Date Date Clinician Lisinopr Propensi Active Anaphylaxis 2018-0 U nivers il ty to 5-16 ity of adverse 00:00: [place] reaction 00 Medical s Branch LISINOPR DRUG Active Anaphylaxis Uni vers [place] INGREDI 5-16 ity of 00:00: [address] Social History Social Habit Start Date Stop Date Quantity Comments Source History of Smokes tobacco University of tobacco use daily [facility] Exposure to 2022-10-04 2022-10-14 Not sure [facility] SARS-CoV-2 00:00:00 10:25:00 [facility] [place] Alcohol intake 2022-03-09 2022-03-09 4.29 /d University 00:00:00 00:00:00 [facility] Tobacco use and 2018-03-24 2018-03-24 User of smokeless Un iversity of exposure 00:00:00 00:00:00 tobacco [facility] Tobacco Comment 2018-03-24 2018-03-24 trying to quit Unive rsity of 00:00:00 00:00:00 [facility] Sex [birth year] Universit y of 00:00:00 00:00:00 [facility] Smoking Status Start Date Stop Date Source Smokes tobacco daily 2018-03-24 00:00:00 Univers ity of [facility] Medications Ordered Filled Start Stop Current Ordering Indication Dosage Frequency Signature Comments Components Source Medication Medication Date Date Medication? Clinician (SIG) Name Name iopamidol 2021-11- No [id number] 70mL 70 mL, U nivers (ISOVUE 12-15- Intravenou ity o f 370-500 mL) 18:30: 18:30 s, ONCE, 1 [place] injection 00 :00 dose, On Medica l 70 mL [facility] 10/14/22 at 1230, Routine methylpredn 2021-11 Yes 125mg 125 mg, Un odalys isolone sod 12-15 Intravenou it y of succ 18:00: s, Q6H, [place] (SOLU-MEDRO 00 First dose Me dical L) on [facility] injection 10/14/22 at 125 mg 1200, Until Discontinu ed, Routine furosemide 2021-11- No 40mg 40 mg, IV U nivers (LASIX) 12-15 12- Push, ity of injection 17:45: 16:39 ONCE, 1 [place] 40 [place] 00 :00 dose, On Medical [facility] 10/14/22 at 1145, LAURYN ipratropium 2021-11- [...] 10/14/22 at 1045, Routine levoFLOXaci 2021-11 Yes [id number] 750mg Take 1 Univers n 750 mg [...] of succ 11:45: 10:43 s, ONCE, 1 [place] (SOLU-MEDRO 00 :00 dose, On Medi keo [...] 0530, solution 3 Routine mL albuterol Yes [id number] 2{puff} Inhale 2 Univers 90 4-14 Puffs ity of mcg/actuati 00:00: every 4 [place] as on inhaler 00 (four) Medical hours as Branch needed for Wheezing or Shortness of Breath. albuterol Yes [id number] 2.5mg Inhale 3 Univers 2.5 mg /3 4-14 mL every 4 ity of mL (0.083 00:00: (four) [place] %) 00 hours. May Medical nebulizer also Branch solution nebulize one extra every 6 hours. budesonide- Yes [id number] 2{puff} Inhale 2 Univers formoteroL 4-14 Puffs 2 ity of 160-4.5 00:00: (two) [place] mcg/actuati 00 times Medical on inhaler daily. Branch triamterene Yes [id number] 1{tbl} Take 1 Univers -hydrochlor 4-14 tablet by ity of othiazid 00:00: mouth [place] 37.5-25 mg 00 daily. Medical tablet Branch chlordiazeP Yes [id number] 25mg Take 1 Univers OXIDE 25 mg 4-14 capsule by it y of capsule 00:00: mouth [place] 00 every 6 Medical (six) Branch hours as needed for Anxiety, Agitation, Heart Rate => 100 or Detox. predniSONE Yes [id number] TAKE ONE Univers 10 mg 4-14 TABLET BY ity of tablet 00:00: MOUTH [place] 00 DAILY Medical Branch albuterol Yes [id number] 2{puff} Inhale 2 Univers 90 4-14 Puffs ity of mcg/actuati 00:00: every 4 [place] as on inhaler 00 (four) Medical hours as Branch needed for Wheezing or Shortness of Breath. albuterol Yes [id number] 2.5mg Inhale 3 Univers 2.5 mg /3 4-14 mL every 4 ity of mL (0.083 00:00: (four) [place] %) 00 hours. May Medical nebulizer also Branch solution nebulize one extra every 6 hours. budesonide- Yes [id number] 2{puff} Inhale 2 Univers formoteroL 4-14 Puffs 2 ity of 160-4.5 00:00: (two) [place] mcg/actuati 00 times Medical on inhaler daily. Branch triamterene Yes [id number] 1{tbl} Take 1 Univers -hydrochlor 4-14 tablet by ity of othiazid 00:00: mouth [place] 37.5-25 mg 00 daily. Medical tablet Branch chlordiazeP Yes [id number] 25mg Take 1 Univers OXIDE 25 mg 4-14 capsule by it y of capsule 00:00: mouth [place] 00 every 6 Medical (six) Branch hours as needed for Anxiety, Agitation, Heart Rate => 100 or Detox. predniSONE Yes [id number] TAKE ONE Univers 10 mg 4-14 TABLET BY ity of tablet 00:00: MOUTH [place] 00 DAILY Medical Branch albuterol Yes [id number] 2{puff} Inhale 2 Univers 90 4-14 Puffs ity of mcg/actuati 00:00: every 4 [place] as on inhaler 00 (four) Medical hours as Branch needed for Wheezing or Shortness of Breath. albuterol Yes [id number] 2.5mg Inhale 3 Univers 2.5 mg /3 4-14 mL every 4 ity of mL (0.083 00:00: (four) [place] %) 00 hours. May Medical nebulizer also Branch solution nebulize one extra every 6 hours. budesonide- Yes [id number] 2{puff} Inhale 2 Univers formoteroL 4-14 Puffs 2 ity of 160-4.5 00:00: (two) [place] mcg/actuati 00 times Medical on inhaler daily. Branch triamterene Yes [id number] 1{tbl} Take 1 Univers -hydrochlor 4-14 tablet by ity of othiazid 00:00: mouth [place] 37.5-25 mg 00 daily. Medical tablet Branch chlordiazeP Yes [id number] 25mg Take 1 Univers OXIDE 25 mg 4-14 capsule by it y of capsule 00:00: mouth [place] 00 every 6 Medical (six) Branch hours as needed for Anxiety, Agitation, Heart Rate => 100 or Detox. predniSONE Yes [id number] TAKE ONE Univers 10 mg 4-14 TABLET [...] by ity of capsule 16:32: mouth 2 [place] 14 (two) Medical times [place] daily as needed ([facility] pain). foLIC acid Yes 1mg Take 1 mg Un odalys 1 mg tablet 5-18 by mouth ity of 16:32: daily. [place] 14 Medical Branch triamterene 2017-0 Yes 1{capsu Take 1 U nivers -hydrochlor 5-18 le} capsule by it y of othiazide 16:32: mouth [place] 37.5-25 mg 14 every Medical per capsule morning. Bran ch amLODIPine 2018-0 Yes 10mg Take 10 mg U nivers 10 mg 5-18 by mouth ity of tablet 16:32: at [place] 14 bedtime. Medical Branch gabapentin 2018-0 Yes 100mg Take 100 Un odalys 100 mg 5-18 mg by ity of capsule 16:32: mouth 2 [place] 14 (two) Medical times Branch daily as needed ([facility] pain). foLIC acid 2018-0 Yes 1mg Take 1 mg Un odalys 1 mg tablet 5-18 by mouth ity of 16:32: daily. [place] [address] Medical Branch triamterene 0 Yes 1{capsu Take 1 U nivers -hydrochlor 5-18 le} capsule by it y of othiazide 16:32: mouth [place] 37.5-25 mg 14 every Medical per capsule morning. Bran ch amLODIPine 2018-0 Yes 10mg Take 10 mg U nivers 10 mg 5-18 by mouth ity of tablet 16:32: at [place] [address] bedtime. Medical Branch gabapentin 2018-0 Yes 100mg Take 100 Un odalys 100 mg 5-18 mg by ity of capsule 16:32: mouth 2 [place] 14 (two) Medical times [place] daily as needed ([facility] pain). foLIC acid 2018-0 Yes 1mg Take 1 mg Un odalys 1 mg tablet 5-18 by mouth ity of 16:32: daily. [address] triamterene 2017-0 Yes 1{capsu Take 1 U nivers -hydrochlor 5-18 le} capsule by it y of othiazide 16:32: mouth [place] 37.5-25 mg 14 every Medical per capsule morning. Bran ch amLODIPine 2017-0 Yes 10mg Take 10 mg U nivers 10 mg 5-18 by mouth ity of tablet 16:32: at [place] 14 bedtime. Medical Branch budesonide- 2017-0 Yes [...] Immunizations Ordered Filled Immunization Date Status Comments [facility] e Immunization Name Name SARS-COV-2 COVID-19 2021-02-03 Completed Unive rsity of PFIZER VACCINE 00:00:00 [facility] [place] SARS-COV-2 COVID-19 2021-02-03 Completed Unive rsity of PFIZER VACCINE 00:00:00 [facility] [place] SARS-COV-2 COVID-19 2021-02-03 Completed Unive rsity of PFIZER VACCINE 00:00:00 [facility] [place] SARS-COV-2 COVID-19 2021-01-13 Completed Unive rsity of PFIZER VACCINE 00:00:00 [facility] [place] SARS-COV-2 COVID-19 2021-01-13 Completed Unive rsity of PFIZER VACCINE 00:00:00 [facility] [place] SARS-COV-2 COVID-19 2021-01-13 Completed Unive rsity of PFIZER VACCINE 00:00:00 [facility] [place] Pneumococcal 2018-03-26 Completed University o f Polysaccharide, 00:00:00 [facility] ical PPSV23 (PNEUMOVAX) [place] Influenza Virus 2018-03-26 Completed Universit y of Vaccine Quad IM 3+ 00:00:00 [facility] Pneumococcal 2018-03-26 Completed University o f Polysaccharide, 00:00:00 [place] Med ical PPSV23 (PNEUMOVAX) [place] Influenza Virus 2018-03-26 Completed Universit y of Vaccine Quad IM 3+ 00:00:00 [facility] Pneumococcal 2018-03-26 Completed University o f Polysaccharide, 00:00:00 [place] Med ical PPSV23 (PNEUMOVAX) [place] Influenza Virus 2018-03-26 Completed Universit y of Vaccine Quad IM 3+ 00:00:00 [facility] Vital Signs Vital Name Observation Time Observation Value Comments Source Systolic blood 2022-10-14 19:43:00 111 mm[Hg] Univer sity of pressure [facility] Diastolic blood 2022-10-14 19:43:00 74 mm[Hg] Unive rsity of pressure [place] [facility] Heart rate 2022-10-14 19:43:00 98 /min Universi ty [facility] [place] [facility] Body temperature 2022-10-14 19:43:00 36.39 Debbie Univ ersity of [place] [facility] Respiratory rate 2022-10-14 19:43:00 22 /min Univ [facility] [place] [facility] Oxygen saturation in 2022-10-14 19:43:00 94 /min University of Arterial blood by [facility] keo Pulse oximetry Branch Body height 2022-10-14 16:13:00 162.6 cm Universi ty of [place] [facility] Body weight 2022-10-14 16:13:00 81.647 kg Universi ty [facility] [place] [facility] BMI 2022-10-14 16:13:00 30.90 kg/m2 [facility] ty [facility] [place] [facility] Systolic blood 2022-03-12 10:13:00 119 mm[Hg] Univer sity of pressure [place] [facility] Diastolic blood 2022-03-12 10:13:00 75 mm[Hg] Unive rsity of pressure [place] [facility] Heart rate 2022-03-12 10:13:00 105 /min Universi ty [facility] [place] [facility] Body temperature 2022-03-12 10:13:00 37.28 Debbie Univ [facility] [place] [facility] Respiratory rate 2022-03-12 10:13:00 19 /min Univ [facility] [place] [facility] Body height 2022-03-12 10:13:00 162.6 cm [facility] [place] [facility] Body weight 2022-03-12 10:13:00 99.791 kg [facility] [place] [facility] BMI 2022-03-12 10:13:00 37.76 kg/m2 Universi ty [facility] [place] [facility] Oxygen saturation in 2022-03-12 10:13:00 96 /min University of Arterial blood by [facility] keo Pulse oximetry Branch Systolic blood 2022-02-20 11:57:00 155 mm[Hg] Univer sity of pressure [place] [facility] Diastolic blood 2022-02-20 11:57:00 88 mm[Hg] Unive rsity of pressure [place] [facility] Heart rate 2022-02-20 11:57:00 105 /min [facility]i ty [facility] [place] [facility] Respiratory rate 2022-02-20 11:57:00 18 /min [facility] Oxygen saturation in 2022-02-20 11:57:00 100 /min [facility] Arterial blood by [facility] Pulse oximetry Branch Body temperature 2022-02-20 09:25:00 37 Debbie [facility] Body height 2022-02-20 09:25:00 162.6 cm [facility] Body weight 2022-02-20 09:25:00 96.163 kg [facility] BMI 2022-02-20 09:25:00 36.39 kg/m2 [facility] Procedures Procedure Date / Time Performing Clinician Source Performed CT ABDOMEN PELVIS W 2022-10-14 17:33:00 Melinda Maciel [facility] CONTRAST [facility] XR CHEST 1 VW 2022-10-14 17:10:37 Singer [facility] TROPONIN I 2022-10-14 16:37:00 Singer [facility] COMP. METABOLIC PANEL 2022-10-14 16:37:00 Melinda Maciel [facility] ([id number]) [facility] CBC WITH DIFF 2022-10-14 16:37:00 Singer [facility] PROTHROMBIN TIME / INR 2022-10-14 16:37:00 Melinda Maciel [facility] URINALYSIS 2022-10-14 16:37:00 Singer [facility] N-TERMINAL PRO-BNP 2022-10-14 16:37:00 Melinda Maciel [facility] CONSENT/REFUSAL FOR 2022-10-14 15:56:36 Doctor Unassigned, No [facility] [place] DIAGNOSIS AND TREATMENT Name Medical Branch CONSENT/REFUSAL FOR 2022-03-12 10:03:12 [facility], [facility] Name Medical Branch XR CHEST 1 VW 2022-02-20 09:59:00 Christy Shaw [facility] LIPASE 2022-02-20 09:30:00 Christy Shaw [facility] TROPONIN I 2022-02-20 09:30:00 Christy Shaw [facility] COMP. METABOLIC PANEL 2022-02-20 09:30:00 Christy Shaw [facility] ([id number]) [facility] CBC WITH DIFF 2022-02-20 09:30:00 Christy Shaw [facility] N-TERMINAL PRO-BNP 2022-02-20 09:30:00 Christy Shaw [facility] NOTICE OF PRIVACY 2022-02-20 09:15:02 Doctor Unassigned, No Univ [facility] PRACTICES Name [facility] Branch CONSENT/REFUSAL FOR 2022-02-20 09:14:47 Doctor Unassigned, No [facility] DIAGNOSIS AND TREATMENT Name [facility] Encounters Start End Encounter Admission Attending Care Care Encounter Source Date/Time Date/Time Type Type Clinicians Facility Department ID 2022-10-14 2022-10-14 Emergency [facility] [id number] Univers 10:07:00 14:39:00 Melinda SMITH [id number] i ty [facility] [id number] [facility] [id number] [address] 2022-10-14 2022-10-14 Emergency [facility] [id number] Univers 10:07:00 14:39:00 MELINDA radha [facility] 2022-03-12 2022-03-12 Emergency [facility] [id number] Univers 05:15:00 06:41:00 CHRISTY garcia [facility] 2022-03-12 2022-03-12 [facility] [id number] Univers 05:15:00 06:41:00 Christy SMITH [id number] ity [facility] [id number] [facility] [id number] [address] 2022-02-20 2022-02-20 Emergency [facility] [id number] Univers 04:17:00 07:16:00 [facility]20 2022-02-20 Emergency [facility] [id number] Univers 04:17:00 07:16:00 Christy SMITH [id number] [facility] [id number] [facility] [id number] [facility] 084 Branch 2021-02-03 2021-02-03 Outpatient R PINEDA, [facility] [id number] Univers 11:10:00 11:10:00 [facility] 2021-01-13 2021-01-13 Outpatient [facility] [id number] Univers 11:20:00 11:20:00 [facility] 2020-11-10 2020-11-10 [facility] [id number] Univers 08:20:00 08:20:00 KARLEY [facility] Results Test Description Test Time Test Comments Results Result Comments Source TROPONIN I 2022-02-20 10:16:22 Test Item Value Reference Range Interpretation Comme nts TROPONIN I (test code = 0.007 ng/mL See_Comment [Au tomated message] The [id number]) system which ge nerated this result tra [...] biotin. Lab Interpretation Normal (test code = 83686-8) [facility] [id number] 10:13:01 Test Item Value Reference Range Interpretation Comments NT-proBNP (test code 52 pg/mL See_Comment [Autom ated = 1825539621) message] The system which generated this result transmitted reference range : <=125. The reference range was not used to interpret this result as normal/abnormal . LOUISE (test code = LOUISE) Biotin has been reported to cause a negative bias, interpret results relative to patient's use of biotin. Lab Interpretation Normal (test code = 21502-0) [facility]. METABOLIC PANEL ([id number])2022-02-20 10:04:02 Test Item Value Reference Range Interpretation Comments NA (test code = 137 mmol/L 135-145 7006838227) K (test code = 3.6 mmol/L 3.5-5.0 2133267242) CL (test code = 99 mmol/L 98-108 4677699451) CO2 TOTAL (test code = 25 mmol/L 23-31 9493948476) AGAP (test code = 2-16 2442601386) BUN (test code = 6 mg/dL 7-23 L 3073977067) GLUCOSE (test code = 88 mg/dL 70-110 8749362393) CREATININE (test code = 0.55 mg/dL 0.60-1.25 L 6603068590) TOTAL BILI (test code = 0.8 mg/dL 0.1-1.0 9386460084) CALCIUM (test code = 8.9 mg/dL 8.6-10.6 1087736193) T PROTEIN (test code = 7.5 g/dL 6.3-8.2 5903050890) ALBUMIN (test code = 4.8 g/dL 3.5-5.0 7404624933) ALK PHOS (test code = 113 U/L 34-122 7293012597) ALTv (test code = 84 U/L 5-50 H 1742-6) AST(SGOT) (test code = 107 U/L 13-40 H 0090070864) eGFR (test code = mL/min/1.73m2 0983332597) LOUISE (test code = LOUISE) Association of [...] tests). Lab Interpretation Abnormal (test code = 92291-6) [facility], [id number] 10:03:21 Test Item Value Reference Range Interpretation Comments LIPASE (test code = 7020416842) 193 U/L 0-220 Lab Interpretation (test code = Normal 10097-0) [facility] WITH [id number] 09:39:17 Test Item Value Reference Range Interpretation Comments WBC (test code = See_Comment [Automated 4990-2) message] The sy stem which generated this result transmitted reference range : 4.20 - 10.70 10*3/?L. The reference range was not used to interpret this result as normal/abnormal . RBC (test code = See_Comment [Automated 309-8) message] The sy stem which generated this [...] RDW-SD (test code = 44.4 fL 38.5-51.6 47573-3) RDW-CV (test code = 11.9 % 12.1-15.4 L 788-0) PLT (test code = See_Comment [Automated 777-3) message] The sy stem which generated this result transmitted reference range : 150 - 328 10*3/ ?L. The reference r ernie was not used to interpret this result as normal/abnormal . MPV (test code = 9.2 fL 9.8-13.0 L 30136-2) NRBC/100 WBC (test See_Comment [Automat ed code = 6459266609) message] The system which generated this result transmitted reference range : 0.0 - 10.0 /100 WBCs. The refer ence range was not u sed to interpret th is result as normal/abnormal . NRBC x10^3 (test code <0.01 See_Comment [Auto mated = 0490503012) message] The s ystem which generated this result transmitted reference range : 10*3/?L. The reference range was not used to interpret this result as normal/abnormal . GRAN MAT (NEUT) % 69.9 % (test code = 770-8) IMM GRAN % (test code 1.50 % = 2782224323) LYMPH % (test code = 18.9 % 736-9) MONO % (test code = 7.0 % 5905-5) EOS % (test code = 1.9 % 713-8) BASO % (test code = 0.8 % 706-2) GRAN MAT x10^3(ANC) 7.15 10*3/uL 1.99-6.95 H (test code = 3635294122) IMM GRAN x10^3 (test 0.15 10*3/uL 0.00-0.06 H code = 0922339015) LYMPH x10^3 (test code 1.93 10*3/uL 1.09-3.23 = 731-0) MONO x10^3 (test code 0.72 10*3/uL 0.36-1.02 = 742-7) EOS x10^3 (test code = 0.19 10*3/uL 0.06-0.53 711-2) BASO x10^3 (test code 0.08 10*3/uL 0.01-0.09 = 704-7) Lab Interpretation Abnormal (test code = 32122-9) [facility]"
[2023-04-12 14:41] LABS: Absolute Lymphocytes (CBC) 1.7 K/uL (0.7-4.9); Hematocrit 43.9 % (39.6-49.0); Lymphocytes % 16.2 % (15.3-44.8); MCV 100.2 fL (80-100); MPV 6.8 fL (7.6-11.3); RBC Red Blood Cell Count 4.38 M/uL (4.33-5.43)
[2023-04-12 14:43] LABS: Protime INR 0.85
[2023-04-12] MEDS ORDERED: NA CHLORIDE 0.9% 1,000 ML ONE (14:48)
[2023-04-12 15:20] LABS: Albumin 3.8 g/dL (3.4-5.0); Bilirubin Direct 0.1 mg/dL (0-0.2); Bilirubin Indirect, Calculated 0.2 mg/dL (0.2-0.8); Bilirubin Total 0.3 mg/dL (0.2-1.0); Protein, Total 7.5 g/dL (6.4-8.2); Troponin High Sensitivity 4.4 pg/mL (<58.9)
--- NOTE | 2023-04-12 15:20 | RAD REPORT ---
EXAM DESCRIPTION: RADChest Single View04/12/2023 3:15 pm CLINICAL HISTORY: CHEST PAIN COMPARISON: Chest Single View dated 04/04/2023; Chest Single View dated 02/10/2023; Chest Single View d ated 01/13/2023; Chest Single View dated 01/11/2023hest Single View dated 04/04/2023; Chest Single View d ated 02/10/2023; Chest Single View dated 01/13/2023; Chest Single View dated 01/11/2023 TECHNIQUE: Portable AP view of the chest. FINDINGS: The lungs are clear. Right basilar streaky atelectasis, stable. No pneumothorax or effusio n. The cardiomediastinal contours are unremarkable. IMPRESSION: No acute cardiopulmonary process.
[2023-04-12 15:21] LABS: Magnesium 1.8 mg/dL (1.6-2.4); Potassium 4.1 mEq/L (3.5-5.1)
[2023-04-12] MEDS ORDERED: CYANOCOBALAMIN 1,000 MCG TAB ONE (15:45)
--- NOTE | 2023-04-12 16:15 | EDPHYS ---
Physician Documentation [facility] Name: Randy Briones Age: 52 yrs Sex: Male : 1970 Arrival Date: 04/12/2023 Time: 14:17 Bed 19 Private MD: ED Physician Abdi Thacker HPI: 04/12 14:32 This 52 yrs old Male presents to ER via EMS with complaints of Chest Pain. snw 14:32 The patient or guardian reports chest pain that is located primarily in the anterior snw chest wall, left. Onset: acutely. The pain does not radiate. Associated signs and symptoms: Pertinent positives: cough. The chest pain is described as causing indigestion, sharp. Severity of pain: At its worst the pain was moderate severe. The patient has experienced similar episodes in the past, chronically. The patient has been recently seen by a physician: 2 week(s) ago, with similar presenting complaints, taking Diclofenac BID without much resolution. 14:37 EMS care prior to arrival includes: aspirin, nitroglycerin, saline lock. snw Historical: - Allergies: 14:22 Lisinopril; kc6 - PMHx: 14:22 Alcoholism; COPD; Hypertension; kc6 - PSHx: 14:22 Amputation of left index finger; kc6 - Immunization history:: Client reports receiving the 2nd dose of the Covid vaccine, Flu vaccine is up to date. - Social history:: Smoking status: Patient reports the use of cigarette tobacco products, smokes one-half pack cigarettes per day. ROS: 14:35 Constitutional: Negative for fever, chills, and weight loss, Eyes: Negative for injury, snw pain, redness, and discharge, ENT: Negative for injury, pain, and discharge, Neck: Negative for injury, pain, and swelling, Respiratory: Negative for shortness of breath, cough, wheezing, and pleuritic chest pain, Abdomen/GI: Negative for abdominal pain, nausea, vomiting, diarrhea, and constipation, Back: Negative for injury and pain, : Negative for injury, bleeding, discharge, and swelling, MS/Extremity: Negative for injury and deformity, Skin: Negative for injury, rash, and discoloration, Neuro: Negative for headache, weakness, numbness, tingling, and seizure. 14:35 Cardiovascular: Positive for chest pain. Exam: 14:34 Constitutional: This is a well developed, well nourished patient who is awake, alert, snw and in no acute distress. Head/Face: Normocephalic, atraumatic. Eyes: Pupils equal round and reactive to light, extra-ocular motions intact. Lids and lashes normal. Conjunctiva and sclera are non-icteric and not injected. Cornea within normal limits. Periorbital areas with no swelling, redness, or edema. ENT: Nares patent. No nasal discharge, no septal abnormalities noted. Tympanic membranes are normal and external auditory canals are clear. Oropharynx with no redness, swelling, or masses, exudates, or evidence of obstruction, uvula midline. Mucous membranes moist. Neck: Trachea midline, no thyromegaly or masses palpated, and no cervical lymphadenopathy. Supple, full range of motion without nuchal rigidity, or vertebral point tenderness. No Meningismus. Chest/axilla: Normal chest wall appearance and motion. Nontender with no deformity. No lesions are appreciated. 14:34 Respiratory: Lungs have equal breath sounds bilaterally, clear to auscultation and percussion. No rales, rhonchi or wheezes noted. Mild increased work of breathing, no retractions or nasal flaring. + tachypnea Back: No spinal tenderness. No costovertebral tenderness. Full range of motion. Skin: Warm, dry with normal turgor. Normal color with no rashes, no lesions, and no evidence of cellulitis. MS/ Extremity: Pulses equal, no cyanosis. Neurovascular intact. Full, normal range of motion. Neuro: Awake and alert, GCS 15, oriented to person, place, time, and situation. Cranial nerves II-XII grossly intact. Motor strength 5/5 in all extremities. Sensory grossly intact. Cerebellar exam normal. Normal gait. Psych: Awake, alert, with orientation to person, place and time. Behavior, mood, and affect are within normal limits. 14:34 Cardiovascular: Rate: tachycardic, Rhythm: regular, Heart sounds: normal, Edema: is not appreciated. 14:34 Abdomen/GI: Inspection: distension, that is mild, Bowel sounds: hyperactive, Palpation: abdomen is soft and non-tender. Vital Signs: 14:20 BP 148 / 92; Pulse 115; Resp 39 S; Pulse Ox 98% on R/A; Weight 80.74 kg (R); Height 5 kc6 ft. 4 in. (R); 15:15 BP 140 / 103; Pulse 117; Resp 22 S; Pulse Ox 96% on R/A; kc6 14:20 Body Mass Index 30.55 (80.74 kg, 162.56 cm) kc6 MDM: 14:25 Patient medically screened. snw 14:31 Differential diagnosis: viral Infection, bacterial infection, pneumonia AK. Data snw reviewed: vital signs, nurses notes, EMS record. Historians other than the Patient: EMS: [facility]. gave NTG SL and 324mg ASA prior to arrival. 16:11 Differential diagnosis: abnormal EKG, acute myocardial infarction, acute pericarditis, snw anxiety, esophagitis, gastritis, gastroesophageal reflux disease (GERD). HEART Score: History: Slightly Suspicious (0), ECG: Non specific repolarization disturbance / LBTB / PM (1), Age: > 45 and < 65 years (1), Risk Factors: 1 or 2 risk factors (1), [Hypertension] Troponin: < or = 1 x Normal Limit (0), Total Score = 3. The patient was not given aspirin in the Emergency Department. Administered by EMS. I considered the following discharge prescriptions or medication management in the emergency department Medications were administered in the Emergency Department. See MAR. Counseling: I had a detailed discussion with the patient and/or guardian regarding: the historical points, exam findings, and any diagnostic results supporting the discharge/admit diagnosis, the presence of at least one elevated blood pressure reading (>120/80) during this emergency department visit, lab results, radiology results, the need for outpatient follow up, to return to the emergency department if symptoms worsen or persist or if there are any questions or concerns that arise at home. Special discussion: Based on the patient's history, exam, and Dx evaluation, there is no indication for emergent intervention or inpatient Tx. It is understood by the patient/guardian that if the Sx's persist or worsen they need to return immediately for re-evaluation. I have referred the patient to see his PCP for further evaluation of high blood pressure. Based on the history and exam findings, there is no indication for further emergent testing or inpatient evaluation. I discussed with the patient/guardian the need to see the water control supervisor for further evaluation of the symptoms. I discussed with the patient/guardian the need to see the primary care provider for further evaluation of the symptoms. 16:13 ED course: pt would like to leave ED prior to repeat Trop, voices understanding of tx snw plan and f/u. 04/12 14:28 Order name: Basic Metabolic Panel; Complete Time: 15:27 snw 04/12 14:28 Order name: CBC with Diff; Complete Time: 14:56 snw 04/12 14:28 Order name: LFT's; Complete Time: 15:27 snw 04/12 14:28 Order name: Magnesium; Complete Time: 15:27 snw 04/12 14:28 Order name: NT PRO-BNP; Complete Time: 15:27 snw 04/12 14:28 Order name: PT-INR; Complete Time: 14:56 snw 04/12 14:28 Order name: Troponin HS; Complete Time: 15:27 snw 04/12 14:28 Order name: XRAY Chest (1 view); Complete Time: 15:27 snw 04/12 14:28 Order name: EKG; Complete Time: 14:29 snw 04/12 15:49 Order name: EKG; Complete Time: 15:50 snw 04/12 14:28 Order name: Cardiac monitoring; Complete Time: 14:33 snw 04/12 14:28 Order name: EKG - Nurse/Tech; Complete Time: 14:33 snw 04/12 14:28 Order name: IV Saline Lock; Complete Time: 14:34 snw 04/12 14:28 Order name: Labs collected and sent; Complete Time: 14:34 snw 04/12 14:28 Order name: O2 Per Protocol; Complete Time: 14:34 snw 04/12 14:28 Order name: O2 Sat Monitoring; Complete Time: 14:34 snw 04/12 15:49 Order name: EKG - Nurse/Tech; Complete Time: 16:06 snw EC:30 Rate is 109 beats/min. QRS [place] is Normal. AR interval is normal. QRS interval is snw prolonged. QT interval is normal. Clinical impression: Sinus tachycardia. 16:00 Rate is 87 beats/min. Rhythm is regular. QRS [place] is Normal. AR interval is normal. QRS snw interval is prolonged. Clinical impression: NSR w/ Non-specific ST/T Changes. Administered Medications: 14:34 CANCELLED (given en route via emss): Aspirin PO Chewable Tablet 324 mg PO once; 81 mg kc6 tablets x 4 14:43 Drug: NS 0.9% IV 1000 ml Route: IV; Rate: 75 ml/hr; Site: right antecubital; kc6 15:38 CANCELLED (Other Intervention Used): NS 0.9% IV 1000 ml IV at 1000 ml once kc6 15:39 Drug: Cyanocobalamin IM 1000 mcg {Note: PO per provider.} Route: IM; Site: Other; kc6 Disposition Summary: 04/12/23 16:14 Discharge Ordered Location: Home snw Condition: Stable snw Diagnosis - Chest pain, unspecified snw - COPD/ Chronic obstructive pulmonary disease, unspecified snw - Essential (primary) hypertension snw Followup: snw - With: Emergency Department - When: As needed - Reason: Worsening of condition Followup: snw - With: Private Physician - When: 2 - 3 days - Reason: Recheck today's complaints, Continuance of care, Re-evaluation by your physician Discharge Instructions: - Discharge Summary Sheet snw - Nonspecific Chest Pain, Adult snw - Chest Wall Pain snw - Chronic Bronchitis, Adult snw - Hypertension, Adult snw - How to Take Your Blood Pressure, [id number] snw - Aspirin and Your Heart snw - DASH Eating Plan snw - Form - Blood Pressure Record Sheet snw Forms: - Work release form snw - Medication Reconciliation Form snw - Thank You Letter snw - Antibiotic Education snw - Prescription Opioid Use snw Prescriptions: - Protonix 40 mg Oral Tablet - take 1 tablet by ORAL route once daily; 30 tablet; Refills: 0, Product snw Selection Permitted Signatures: Dispatcher [employer] EDOK Leslie Vasquez, HAT CLEANER-C HAT CLEANER-Csnw Manda Samaniego, RN RN kc6 Corrections: (The following items were deleted from the chart) 14:34 14:28 Aspirin PO Chewable Tablet 324 mg PO once; 81 mg tablets x 4 ordered. snw kc6 14:36 14:34 Constitutional: This is a well developed, well nourished patient who is awake, snw alert, and in no acute distress. Head/Face: Normocephalic, atraumatic. Eyes: Pupils equal round and reactive to light, extra-ocular motions intact. Lids and lashes normal. Conjunctiva and sclera are non-icteric and not injected. Cornea within normal limits. Periorbital areas with no swelling, redness, or edema. ENT: Nares patent. No nasal discharge, no septal abnormalities noted. Tympanic membranes are normal and external auditory canals are clear. Oropharynx with no redness, swelling, or masses, exudates, or evidence of obstruction, uvula midline. Mucous membranes moist. Neck: Trachea midline, no thyromegaly or masses palpated, and no cervical lymphadenopathy. Supple, full range of motion without nuchal rigidity, or vertebral point tenderness. No Meningismus. Chest/axilla: Normal chest wall appearance and motion. Nontender with no deformity. No lesions are appreciated. snw 14:36 14:34 Cardiovascular: Rate: tachycardic, Rhythm: regular, Heart sounds: normal, Edema: snw is not appreciated, snw 14:36 14:34 Respiratory: Lungs have equal breath sounds bilaterally, clear to auscultation snw and percussion. No rales, rhonchi or wheezes noted. No increased work of breathing, no retractions or nasal flaring. Back: No spinal tenderness. No costovertebral tenderness. Full range of motion. Skin: Warm, dry with normal turgor. Normal color with no rashes, no lesions, and no evidence of cellulitis. MS/ Extremity: Pulses equal, no cyanosis. Neurovascular intact. Full, normal range of motion. Neuro: Awake and alert, GCS 15, oriented to person, place, time, and situation. Cranial nerves II-XII grossly intact. Motor strength 5/5 in all extremities. Sensory grossly intact. Cerebellar exam normal. Normal gait. Psych: Awake, alert, with orientation to person, place and time. Behavior, mood, and affect are within normal limits. snw 15:38 15:29 NS 0.9% IV 1000 ml IV at 1000 ml once ordered. snw kc6 15:38 15:38 NS 0.9% IV 1000 ml IV at 1000 ml once ordered. kc6 kc6
--- NOTE | 2023-04-12 16:15 | ER ---
Nurse's Notes [facility] Name: Randy Briones Age: 52 yrs Sex: Male : 1970 Arrival Date: 04/12/2023 Time: 14:17 Bed 19 Private MD: Diagnosis: Chest pain, unspecified;COPD/ Chronic obstructive pulmonary disease, unspecified;Essential (primary) hypertension Presentation: 04/12 14:20 Chief complaint: EMS states: left sided chest pain for several days now, worse today. kc6 324 aspirin and 0.4 sublingual nitro given en route. Coronavirus screen: At this time, the client does not indicate any symptoms associated with coronavirus-19. Ebola Screen: No symptoms or risks identified at this time. Initial Sepsis Screen: Does the patient meet any 2 criteria? No. Patient's initial sepsis screen is negative. Does the patient have a suspected source of infection? No. Patient's initial sepsis screen is negative. Risk Assessment: Do you want to hurt yourself or someone else? Patient reports no desire to harm self or others. Onset of symptoms was April 12, 2023. 14:20 Method Of Arrival: EMS: [facility] kc6 14:20 Acuity: CANDACE 3 kc6 Historical: - Allergies: 14:22 Lisinopril; kc6 - PMHx: 14:22 Alcoholism; COPD; Hypertension; kc6 - PSHx: 14:22 Amputation of left index finger; kc6 - Immunization history:: Client reports receiving the 2nd dose of the Covid vaccine, Flu vaccine is up to date. - Social history:: Smoking status: Patient reports the use of cigarette tobacco products, smokes one-half pack cigarettes per day. Screenin:20 [facility] ED Fall Risk Assessment (Adult) History of falling in the last 3 months, kc6 including since admission No falls in past 3 months (0 pts) Confusion or Disorientation No (0 pts) Intoxicated or Sedated No (0 pts) Impaired Gait No (0 pts) Mobility Assist Device Used No (0 pt) Altered Elimination No (0 pt) Score/Fall Risk Level 0 - 2 = Low Risk Oriented to surroundings, Maintained a safe environment, Educated pt \T\ family on fall prevention, incl call for assistance when getting out of bed, Assessed \T\ reinforced patient's understanding of fall precautions, Hourly rounding (assess needs \T\ fall precautionary measures) done. Abuse screen: Denies threats or abuse. Denies injuries from another. Nutritional screening: No deficits noted. Tuberculosis screening: No symptoms or risk factors identified. Assessment: 14:20 General: Appears in no apparent distress. uncomfortable, Behavior is calm, cooperative, kc6 appropriate for age. Pain: Complains of pain in anterior aspect of left upper chest Pain does not radiate. Pain began 2-3 days ago. Is continuous. Neuro: Macario Agitation-Sedation Scale (RASS): 0 - Alert and Calm Level of Consciousness is awake, alert, obeys commands, Oriented to person, place, time, situation, Appropriate for age. Cardiovascular: Heart tones S1 S2 present Capillary refill < 3 seconds Rhythm is sinus tachycardia. Respiratory: Airway is patent Trachea midline Respiratory effort is even, unlabored, Respiratory pattern is regular, symmetrical. GI: No signs and/or symptoms were reported involving the gastrointestinal system. : No signs and/or symptoms were reported regarding the genitourinary system. EENT: No signs and/or symptoms were reported regarding the EENT system. Derm: No signs and/or symptoms reported regarding the dermatologic system. Skin is intact, Skin is dry, Skin is red, Skin temperature is warm. Musculoskeletal: No signs and/or symptoms reported regarding the musculoskeletal system. Circulation, motion, and sensation intact. Capillary refill < 3 seconds, Range of motion: intact in all extremities. 15:15 Reassessment: Patient appears in no apparent distress at this time. No changes from kc6 previously documented assessment. Patient and/or family updated on plan of care and expected duration. Pain level reassessed. Patient is alert, oriented x 3, equal unlabored respirations, skin warm/dry/pink. Vital Signs: 14:20 BP 148 / 92; Pulse 115; Resp 39 S; Pulse Ox 98% on R/A; Weight 80.74 kg (R); Height 5 kc6 ft. 4 in. (R); 15:15 BP 140 / 103; Pulse 117; Resp 22 S; Pulse Ox 96% on R/A; kc6 14:20 Body Mass Index 30.55 (80.74 kg, 162.56 cm) kc6 ED Course: 14:20 Patient arrived in ED. kc6 14:22 Triage completed. kc6 14:22 Arm band placed on. kc6 14:22 Patient has correct armband on for positive identification. Bed in low position. Call kc6 light in reach. Side rails up X2. Client placed on continuous cardiac and pulse oximetry monitoring. NIBP monitoring applied. court monitor on. 14:22 Maintain EMS IV. Dressing intact. Good blood return noted. Site clean \T\ dry. Gauge \T\ araceli 6 site: 18G RAC. Patient maintains SpO2 saturation greater than 95% on room air. 14:27 Leslie Vasquez FNP-C is [facility]. snw 14:27 Abdi Thacker MD is Attending Physician. snw 14:33 Manda Samaniego, BRIGETTE is Primary Nurse. kc6 15:17 XRAY Chest (1 view) In Process Unspecified. EDMS 16:28 No provider procedures requiring assistance completed. IV discontinued, Pt removed IV jl7 himself and walked out of ED, refused to stop. Administered Medications: 14:34 CANCELLED (given en route via emss): Aspirin PO Chewable Tablet 324 mg PO once; 81 mg kc6 tablets x 4 14:43 Drug: NS 0.9% IV 1000 ml Route: IV; Rate: 75 ml/hr; Site: right antecubital; kc6 15:38 CANCELLED (Other Intervention Used): NS 0.9% IV 1000 ml IV at 1000 ml once kc6 15:39 Drug: Cyanocobalamin IM 1000 mcg {Note: PO per provider.} Route: IM; Site: Other; kc6 Medication: 16:29 VIS not applicable for this client. jl7 Outcome: 16:14 Discharge ordered by . snw 16:28 Discharged to home ambulatory. jl7 16:28 Condition: stable 16:28 Discharge instructions given to patient, Instructed on discharge instructions, follow up and referral plans. Demonstrated understanding of instructions, follow-up care, Pt left with signing 16:29 Patient left the ED. jl7 Signatures: Dispatcher [employer] EDMS Leslie Vasquez FNP-C FNP-Kelsie Dan RN BRIGETTE jl7 Manda Samaniego, RN RN kc6
[2023-04-12 16:53] VITALS: BP 140/103; O2SAT 96
--- NOTE | 2023-04-13 10:15 | EKG ---
Test Date: 2023-04-12 Test Time: 14:25:57 Voice Coach: АННА MEASUREMENT RESULTS: Intervals: Rate: 109 CT: 126 QRSD: 98 QT: 358 QTc: 482 [place]: P: 76 CT: 126 QRS: 96 T: 77 INTERPRETIVE STATEMENTS: Sinus tachycardia Rightward axis Incomplete right bundle branch block Borderline ECG Compared to ECG 04/04/2023 20:55:40 Right-axis deviation now present Incomplete right bundle-branch block now present Sinus rhythm no longer present Sinus arrhythmia no longer present ST (T wave) deviation no longer present Prolonged QT interval no longer present Electronically Signed On 04-13-23 10:13:41 CDT by Clovis Barrios
--- NOTE | 2023-04-13 10:15 | EKG ---
Test Date: 2023-04-12 Test Time: 16:02:14 Merchandising Execution Associate: АННА MEASUREMENT RESULTS: Intervals: Rate: 87 AR: 130 QRSD: 108 QT: 396 QTc: 476 [place]: P: 52 AR: 130 QRS: 91 T: 73 INTERPRETIVE STATEMENTS: Normal sinus rhythm Normal ECG Compared to ECG 04/04/2023 20:55:40 Sinus arrhythmia no longer present ST (T wave) deviation no longer present Prolonged QT interval no longer present Electronically Signed On 04-13-23 10:13:38 CDT by Clovis Barrios
== END 2023-04-12 16:29 | disposition home or self-care (01) ==
LOC: ER 14:17
DX: R07.89 Other chest pain (principal); J44.9 Chronic obstructive pulmonary disease, unspecified; I10 Essential (primary) hypertension; F10.20 Alcohol dependence, uncomplicated; F17.210 Nicotine dependence, cigarettes, uncomplicated; Z88.8 Allergy status to other drugs, medicaments and biological substances
CPT/HCPCS: 93005 ×2; 85025; 80048; 36415; 83735; 85610; 80076; 84484; 83880; 71045; 96372; 99285; J7030

== ENCOUNTER 2023-06-23 10:11 | Inpatient (IN) | payer OTHER ==
--- OUTSIDE RECORDS SUMMARY | 2023-06-23 10:16 | XMS REPORT | Continuity of Care Document ---
:1970 Author Organization [facility] t Address [address] [facility] [place] [address] Care Team Providers Name Role Phone SANDRA LOPEZ Primary Care Physician Unavailable DARIEN LOBO Attending Clinician Unavailable MARIA ELENA CHAN MEDICAL Attending Clinician UnavailMELINDA Rojas Attending Clinician Unavailable Melinda Maciel DO Attending Clinician CHRISTY HOLLIDAY Attending Clinician Unavailable Christy Holliday MD Attending Clinician DENISE SUNG Attending Clinician Unavailable KARLEY ADAMS Attending Clinician Unavailable MELINDA MACIEL Admitting Clinician Unavailable CHRISTY HOLLIDAY Admitting Clinician Unavailable Payers Payer Name Policy Type Policy Number Effective Date Expiration Date Whitney hoepmassiel [facility] 9 [id number] 2023 00:00:00 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 Problems Condition Condition Condition Status Onset Resolution Last Treating Co mments Source Name Details Category Date Date Treatment Clinician Date Acute Acute Disease Active Univers exacerbati exacerbati 5-16 it y of on of on of 00:00: [place] chronic chronic 00 Medical obstructiv obstructiv Br anch e e pulmonary pulmonary disease disease (COPD) (COPD) Obesity Obesity Disease Active Univers (BMI (BMI 5-16 ity of 30-39.9) 30-39.9) 00:00: [address] Allergies, Adverse Reactions, Alerts Allergy Allergy Status Severity Reaction(s) Onset Inactive Treating Comm ents Source Name Type Date Date Clinician Lisinopr Propensi Active Anaphylaxis U nivers il ty to 5-16 ity of adverse 00:00: [place] reaction 00 [facility] [place] LISINOPR DRUG Active Anaphylaxis 2017- Uni vers [place] INGREDI 5-16 ity of 00:00: [place] 00 Medical Branch Social History Social Habit Start Date Stop Date Quantity Comments Source History of Smokes tobacco University of tobacco use daily [facility] Exposure to 2022-10-04 2022-10-14 Not sure [facility] SARS-CoV-2 00:00:00 10:25:00 [facility] (event) [place] Alcohol intake 2022-03-09 2022-03-09 4.29 /d University of 00:00:00 00:00:00 [facility] Tobacco use and 2018-03-24 2018-03-24 User of smokeless Un iversity of exposure 00:00:00 00:00:00 tobacco [facility] Tobacco Comment 2018-03-24 2018-03-24 trying to quit Unive rsity of 00:00:00 00:00:00 [facility] Sex [birth year] At [birth year] Universit y of 00:00:00 00:00:00 [facility] Smoking Status Start Date Stop Date Source Smokes tobacco daily 2018-03-24 00:00:00 Univers ity of [facility] Medications Ordered Filled Start Stop Current Ordering Indication Dosage Frequency Signature Comments Components Source Medication Medication Date Date Medication? Clinician (SIG) Name Name iopamidol 2021-11- No [id number] 70mL 70 mL, U nivers (ISOVUE 2-06 12-06 Intravenou ity o f 370-500 mL) 18:30: 18:30 s, ONCE, 1 [place] injection 00 :00 dose, On Medica l 70 mL e Branch 10/14/22 at 1230, Routine methylpredn 2021-11 Yes 125mg 125 mg, Un odalys isolone sod 2-06 Intravenou it y of succ 18:00: s, Q6H, [place] (SOLU-MEDRO 00 First dose Me dical L) on Tue Branch injection 10/14/22 at 125 mg 1200, Until Discontinu ed, Routine furosemide 2021-11 No 40mg 40 mg, IV U nivers (LASIX) 12-15 Push, ity of injection 17:45: 16:39 ONCE, 1 [place] 40 mg 00 :00 dose, On Medical Tue Branch 10/14/22 at 1145, LAURYN ipratropium 2021-11- No 3mL 3 mL, Univ ers -albuteroL 12-15- Inhalation it y of (DUONEB) 17:30: 16:41 , ONCE, 1 [place] 0.5 mg-3 00 :00 dose, On Medical mg(2.5 mg Thu Branch base)/3 mL 10/14/22 at nebulizer 1130, solution 3 Routine mL FENTanyl PF 2021-11 No 50ug 50 mcg, Un odalys (SUBLIMAZE 12-15 Slow IV ity o f (PF)) 16:45: 16:39 Push, [place] injection 00 :00 ONCE, 1 Medical 50 mcg dose, On Branch 10/14/22 at 1045, Routine levoFLOXaci 2021-11 Yes [id number] 750mg Take 1 Univers n 750 mg [...] Yes 3mL 3 mL, Unive rs -albuteroL 4-14 Inhalation ity of (DUONEB) 13:00: , QID, [place] 0.5 mg-3 00 First dose Medic al mg(2.5 mg on Kym Branch base)/3 mL 02/20/22 at nebulizer 0800, solution 3 Until mL Discontinu ed, Routine methylPREDN No 40mg 40 mg, Uni vers ISolone sod 02-20 Intravenou i ty of succ 11:45: 10:43 s, ONCE, 1 [place] (SOLU-MEDRO 00 :00 dose, On Medi keo [...] 0530, solution 3 Routine mL albuterol Yes [id number] 2{puff} Inhale 2 Univers 90 02-20 Puffs ity of mcg/actuati 00:00: every 4 Saú[place] as on inhaler 00 (four) Medical hours as Branch needed for Wheezing or Shortness of Breath. albuterol Yes [id number] 2.5mg Inhale 3 Univers 2.5 mg /3 4-14 mL every 4 ity of mL (0.083 00:00: (four) [place] %) 00 hours. May Medical nebulizer also Branch solution nebulize one extra every 6 hours. budesonide- Yes [id number] 2{puff} Inhale 2 Univers formoteroL 4-14 Puffs 2 ity of 160-4.5 00:00: (two) [place] mcg/actuati 00 times Medical on inhaler daily. Branch triamterene Yes [id number] 1{tbl} Take 1 Univers -hydrochlor 4-14 tablet by ity of othiazid 00:00: mouth [place] 37.5-25 mg 00 daily. Medical tablet Branch chlordiazeP 0 Yes [id number] 25mg Take 1 Univers OXIDE 25 mg 4-14 capsule by it y of capsule 00:00: mouth [place] 00 every 6 Medical (six) Branch hours as needed for Anxiety, Agitation, Heart Rate => 100 or Detox. predniSONE 0 Yes [id number] TAKE ONE Univers 10 mg 4-14 TABLET BY ity of tablet 00:00: MOUTH [place] 00 DAILY Medical Branch albuterol 0 Yes [id number] 2{puff} Inhale 2 Univers 90 4-14 Puffs ity of mcg/actuati 00:00: every 4 [place] as on inhaler 00 (four) Medical hours as Branch needed for Wheezing or Shortness of Breath. albuterol 0 Yes [id number] 2.5mg Inhale 3 Univers 2.5 mg /3 4-14 mL every 4 ity of mL (0.083 00:00: (four) [place] %) 00 hours. May Medical nebulizer also Branch solution nebulize one extra every 6 hours. budesonide- 2021- Yes [id number] 2{puff} Inhale 2 Univers formoteroL 4-14 Puffs 2 ity of 160-4.5 00:00: (two) [place] mcg/actuati 00 times Medical on inhaler daily. Branch triamterene 0 Yes [id number] 1{tbl} Take 1 Univers -hydrochlor 4-14 tablet by ity of othiazid 00:00: mouth [place] 37.5-25 mg 00 daily. Medical tablet Branch chlordiazeP Yes [id number] 25mg Take 1 Univers OXIDE 25 mg 4-14 capsule by it y of capsule 00:00: mouth [place] 00 every 6 Medical (six) Branch hours as needed for Anxiety, Agitation, Heart Rate => 100 or Detox. predniSONE Yes [id number] TAKE ONE Univers 10 mg 4-14 TABLET BY ity of tablet 00:00: MOUTH [place] 00 DAILY Medical Branch albuterol Yes [id number] 2{puff} Inhale 2 Univers 90 4-14 Puffs ity of mcg/actuati 00:00: every 4 [place] as on inhaler 00 (four) Medical hours as Branch needed for Wheezing or Shortness of Breath. albuterol Yes [id number] 2.5mg Inhale 3 Univers 2.5 mg /3 4-14 mL every 4 ity of mL (0.083 00:00: (four) [place] %) 00 hours. May Medical nebulizer also Branch solution nebulize one extra every 6 hours. budesonide- Yes [id number] 2{puff} Inhale 2 Univers formoteroL 4-14 Puffs 2 ity of 160-4.5 00:00: (two) [place] mcg/actuati 00 times Medical on inhaler daily. Branch triamterene Yes [id number] 1{tbl} Take 1 Univers -hydrochlor 4-14 tablet by ity of othiazid 00:00: mouth [place] 37.5-25 mg 00 daily. Medical tablet Branch chlordiazeP Yes [id number] 25mg Take 1 Univers OXIDE 25 mg 4-14 capsule by it y of capsule 00:00: mouth [place] 00 every 6 Medical (six) Branch hours as needed for Anxiety, Agitation, Heart Rate => 100 or Detox. predniSONE Yes [id number] TAKE ONE Univers 10 mg 4-14 TABLET [...] by mouth ity of tablet 16:32: at [place] [address] bedtime. Medical Branch gabapentin 2018-0 Yes 100mg Take 100 Un odalys 100 mg 5-18 mg by ity of capsule 16:32: mouth 2 [place] [address] (two) Medical times Branch daily as needed ([facility] pain). foLIC acid 2018-0 Yes 1mg Take 1 mg Un odalys 1 mg tablet 5-18 by mouth ity of 16:32: daily. [address] triamterene 2018-0 Yes 1{capsu Take 1 U nivers -hydrochlor 5-18 le} capsule by it y of othiazide 16:32: mouth [place] 37.5-25 mg 14 every Medical per capsule morning. Bran ch amLODIPine 2018-0 Yes 10mg Take 10 mg U nivers 10 mg 5-18 by mouth ity of tablet 16:32: at [place] [address] bedtime. Medical Branch gabapentin 2018-0 Yes 100mg Take 100 Un odalys 100 mg 5-18 mg by ity of capsule 16:32: mouth 2 [place] [address] (two) Medical times [place] daily as needed ([facility]K pain). foLIC acid 2018-0 Yes 1mg Take 1 mg Un odalys 1 mg tablet 5-18 by mouth ity of 16:32: daily. [address] triamterene 2018-0 Yes 1{capsu Take 1 U nivers -hydrochlor 5-18 le} capsule by it y of othiazide 16:32: mouth [place] 37.5-25 mg 14 every Medical per capsule morning. Bran ch amLODIPine 2018-0 Yes 10mg Take 10 mg U nivers 10 mg 5-18 by mouth ity of tablet 16:32: at [place] [address] bedtime. Medical Branch gabapentin 2018-0 Yes 100mg Take 100 Un odalys 100 mg 5-18 mg by ity of capsule 16:32: mouth 2 [place] [address] (two) Medical times Branch daily as needed ([facility] pain). foLIC acid 2018-0 Yes 1mg Take 1 mg Un odalys 1 mg tablet 5-18 by mouth ity of 16:32: daily. [address] budesonide- 2018-0 Yes 2{puff} Inhale 2 Univers [...] Immunizations Ordered Filled Immunization Date Status Comments [facility] e Immunization Name Name SARS-COV-2 COVID-19 2021-02-03 Completed Unive rsity of PFIZER VACCINE 00:00:00 [facility] SARS-COV-2 COVID-19 2021-02-03 Completed Unive rsity of PFIZER VACCINE 00:00:00 [facility] SARS-COV-2 COVID-19 2021-02-03 Completed Unive rsity of PFIZER VACCINE 00:00:00 [facility] SARS-COV-2 COVID-19 2021-01-13 Completed Unive rsity of PFIZER VACCINE 00:00:00 [facility] SARS-COV-2 COVID-19 2021-01-13 Completed Unive rsity of PFIZER VACCINE 00:00:00 [facility] SARS-COV-2 COVID-19 2021-01-13 Completed Unive rsity of PFIZER VACCINE 00:00:00 [facility] Pneumococcal 2018-03-26 Completed University o f Polysaccharide, 00:00:00 [place] Med ical PPSV23 (PNEUMOVAX) Branch Influenza Virus 2018-03-26 Completed Universit y of Vaccine Quad IM 3+ 00:00:00 [facility] Pneumococcal 2018-03-26 Completed University o f Polysaccharide, 00:00:00 [place] Med ical PPSV23 (PNEUMOVAX) Branch Influenza Virus 2018-03-26 Completed Universit y of Vaccine Quad IM 3+ 00:00:00 [facility] Pneumococcal 2018-03-26 Completed University o f Polysaccharide, 00:00:00 [place] Med ical PPSV23 (PNEUMOVAX) [place] Influenza Virus 2018-03-26 Completed Universit y of Vaccine Quad IM 3+ 00:00:[address] [facility] Branch Vital Signs Vital Name Observation Time Observation Value Comments Source Systolic blood 2022-10-14 19:43:00 111 mm[Hg] Univer sity of pressure [place] [facility] Diastolic blood 2022-10-14 19:43:00 74 mm[Hg] Unive rsity of pressure [facility] Branch Heart rate 2022-10-14 19:43:00 98 /min Universi ty of [place] [facility] Body temperature 2022-10-14 19:43:00 36.39 Debbie Univ ersity of [place] [facility] Respiratory rate 2022-10-14 19:43:00 22 /min Univ ersity of [place] [facility] Oxygen saturation in 2022-10-14 19:43:00 94 /min University of Arterial blood by [place] [employer] Pulse oximetry Branch Body height 2022-10-14 16:13:00 162.6 cm Universi ty of [place] [facility] Body weight 2022-10-14 16:13:00 81.647 kg Universi ty of [place] [facility] BMI 2022-10-14 16:13:00 30.90 kg/m2 Universi ty of [place] [facility] Systolic blood 2022-03-12 10:13:00 119 mm[Hg] Univer sity of pressure [place] [facility] Diastolic blood 2022-03-12 10:13:00 75 mm[Hg] Unive rsity of pressure [place] [facility] Heart rate 2022-03-12 10:13:00 105 /min Universi ty of [place] [facility] Body temperature 2022-03-12 10:13:00 37.28 Debbie Univ ersity of [place] [facility] Respiratory rate 2022-03-12 10:13:00 19 /min Univ ersity of [place] [facility] Body height 2022-03-12 10:13:00 162.6 cm Universi ty of [place] [facility] Body weight 2022-03-12 10:13:00 99.791 kg Universi ty of [place] [facility] BMI 2022-03-12 10:13:00 37.76 kg/m2 Universi ty of [place] [facility] Oxygen saturation in 2022-03-12 10:13:00 96 /min University of Arterial blood by [place] [employer] Pulse oximetry Branch Systolic blood 2022-02-20 11:57:00 155 mm[Hg] Univer sity of pressure [facility] Diastolic blood 2022-02-20 11:57:00 88 mm[Hg] [facility] Heart rate 2022-02-20 11:57:00 105 /min [facility] Respiratory rate 2022-02-20 11:57:00 18 /min [facility] Oxygen saturation in 2022-02-20 11:57:00 100 /min [facility] Arterial blood by [facility] Pulse oximetry Branch Body temperature 2022-02-20 09:25:00 37 Debbie [facility] Body height 2022-02-20 09:25:00 162.6 cm [facility] Body weight 2022-02-20 09:25:00 96.163 kg [facility] BMI 2022-02-20 09:25:00 36.39 kg/m2 [facility] Procedures Procedure Date / Time Performing Clinician Source Performed CT ABDOMEN PELVIS W 2022-10-14 17:33:00 Melinda Maciel [facility] CONTRAST [facility] XR CHEST 1 VW 2022-10-14 17:10:37 Singer [facility] TROPONIN I 2022-10-14 16:37:00 Singer [facility] COMP. METABOLIC PANEL 2022-10-14 16:37:00 Melinda Maciel [facility] ([id number]) [facility] CBC WITH DIFF 2022-10-14 16:37:00 Singer [facility] PROTHROMBIN TIME / INR 2022-10-14 16:37:[address] [facility] URINALYSIS 2022-10-14 16:37:00 Singer [facility] N-TERMINAL PRO-BNP 2022-10-14 16:37:00 Melinda Maciel [facility] CONSENT/REFUSAL FOR 2022-10-14 15:56:36 Doctor Unassigned, No Un iversity of [place] DIAGNOSIS AND TREATMENT Name Medical Branch CONSENT/REFUSAL FOR 2022-03-12 10:03:12 Doctor [facility]igned, No [facility] Name Medical Branch XR CHEST 1 VW 2022-02-20 09:59:00 Christy Holliday [facility] LIPASE 2022-02-20 09:30:00 Christy Holliday [facility] TROPONIN I 2022-02-20 09:30:00 Christy Holliday [facility] COMP. METABOLIC PANEL 2022-02-20 09:30:00 Christy Holliday [facility] ([id number]) [facility] CBC WITH DIFF 2022-02-20 09:30:00 Christy Holliday [facility] N-TERMINAL PRO-BNP 2022-02-20 09:30:00 Christy Holliday [facility] NOTICE OF PRIVACY 2022-02-20 09:15:02 Doctor Unassigned, No Univ [facility] PRACTICES Name [facility] CONSENT/REFUSAL FOR 2022-02-20 09:14:47 Doctor Unassigned, No [facility] DIAGNOSIS AND TREATMENT Name [facility] Encounters Start End Encounter Admission Attending Care Care Encounter Source Date/Time Date/Time Type Type Clinicians Facility Department ID 2023-06-16 2023-06-16 Outpatient PREZASMARIA ELENA [id number] Maria Elena 11:30:00 11:30:00 DARIEN brunson 2023-05-18 2023-05-18 Outpatient GROUP, MARIA ELENA BECERRA [id number] Maria Elena 00:00:00 00:00:00 MARIA ELENA brunson 2022-10-14 2022-10-14 Emergency X SINGER [facility] ERT [id number] Univers 10:07:00 14:39:00 MELINDA garcia [facility] 2022-10-14 2022-10-14 Emergency Singer [facility] [id number] Univers 10:07:00 14:39:00 Melinda SMITH [id number] [facility] [id number] [facility] [id number] [facility] 084 Branch 2022-03-12 2022-03-12 Emergency X COLIN [facility] ERT [id number] Univers 05:15:00 06:41:00 CHRISTY [facility] 2022-03-12 2022-03-12 Emergency [facility] [id number] Univers 05:15:00 06:41:00 [id number] [facility] [id number] [address] 2022-02-20 2022-02-20 Emergency X [facility] ERT [id number] Univers 04:17:00 07:16:00 [facility] 2022-02-20 2022-02-20 Emergency [facility] [id number] Univers 04:17:00 07:16:00 Ksamber Whitney [facility] [id number] ity [facility] [id number] [facility] [id number] [address] 2021-02-03 2021-02-03 Outpatient R PINEDA, [facility] [id number] Univers 11:10:00 11:10:00 DENISE [facility] 2021-01-13 2021-01-13 Outpatient [facility] [id number] Univers 11:20:00 11:20:00 [facility] 2020-11-10 2020-11-10 [facility] [id number] Univers 08:20:00 08:20:00 KARLEY [facility] Results Test Description Test Time Test Comments Results Result Comments Source TROPONIN I 2022-02-20 10:16:22 Test Item Value Reference Range Interpretation Comme nts TROPONIN I (test code = 0.007 ng/mL See_Comment [Au tomated message] The [id number]) system which ge nerated this result tra [...] biotin. Lab Interpretation Normal (test code = 02105-7) [facility] [id number] 10:13:01 Test Item Value Reference Range Interpretation Comments NT-proBNP (test code 52 pg/mL See_Comment [Autom ated = 6883066259) message] The system which generated this result transmitted reference range : <=125. The reference range was not used to interpret this result as normal/abnormal . LOUISE (test code = LOUISE) Biotin has been reported to cause a negative bias, interpret results relative to patient's use of biotin. Lab Interpretation Normal (test code = 69375-3) [facility] ([id number])2022-02-20 10:04:02 Test Item Value Reference Range Interpretation Comments NA (test code = 137 mmol/L 135-145 5755620748) K (test code = 3.6 mmol/L 3.5-5.0 7579682005) CL (test code = 99 mmol/L 98-108 7747364295) CO2 TOTAL (test code = 25 mmol/L 23-31 1157465201) AGAP (test code = 2-16 1507026363) BUN (test code = 6 mg/dL 7-23 L 4766056395) GLUCOSE (test code = 88 mg/dL 70-110 1234207022) CREATININE (test code = 0.55 mg/dL 0.60-1.25 L 4424806848) TOTAL BILI (test code = 0.8 mg/dL 0.1-1.8 5156260190) CALCIUM (test code = 8.9 mg/dL 8.6-10.6 1273070625) T PROTEIN (test code = 7.5 g/dL 6.3-8.2 9216728409) ALBUMIN (test code = 4.8 g/dL 3.5-5.0 8365485401) ALK PHOS (test code = 113 U/L 34-122 3876012628) ALTv (test code = 84 U/L 5-50 H 2-6) AST(SGOT) (test code = 107 U/L 13-40 H 0376690730) eGFR (test code = mL/min/1.73m2 6552112560) LOUISE (test code = LOUISE) Association of [...] tests). Lab Interpretation Abnormal (test code = 88094-6) [facility], [id number] 10:03:21 Test Item Value Reference Range Interpretation Comments LIPASE (test code = 1719103266) 193 U/L 0-220 Lab Interpretation (test code = Normal 96686-2) [facility] WITH [id number] 09:39:17 Test Item Value Reference Range Interpretation Comments WBC (test code = See_Comment [Automated 5090-2) message] The sy stem which generated this result transmitted reference range : 4.20 - 10.70 10*3/?L. The reference range was not used to interpret this result as normal/abnormal . RBC (test code = See_Comment [Automated 789-8) message] The sy stem which generated this [...] RDW-SD (test code = 44.4 fL 38.5-51.6 91588-9) RDW-CV (test code = 11.9 % 12.1-15.4 L 788-0) PLT (test code = See_Comment [Automated 777-3) message] The sy stem which generated this result transmitted reference range : 150 - 328 10*3/ ?L. The reference r ernie was not used to interpret this result as normal/abnormal . MPV (test code = 9.2 fL 9.8-13.0 L 99948-0) NRBC/100 WBC (test See_Comment [Automat ed code = 6968159376) message] The system which generated this result transmitted reference range : 0.0 - 10.0 /100 WBCs. The refer ence range was not u sed to interpret th is result as normal/abnormal . NRBC x10^3 (test code <0.01 See_Comment [Auto mated = 4830934340) message] The s ystem which generated this result transmitted reference range : 10*3/?L. The reference range was not used to interpret this result as normal/abnormal . GRAN MAT (NEUT) % 69.9 % (test code = 770-8) IMM GRAN % (test code 1.50 % = 1459413671) LYMPH % (test code = 18.9 % 736-9) MONO % (test code = 7.0 % 5905-5) EOS % (test code = 1.9 % 713-8) BASO % (test code = 0.8 % 706-2) GRAN MAT x10^3(ANC) 7.15 10*3/uL 1.99-6.95 H (test code = 9110320830) IMM GRAN x10^3 (test 0.15 10*3/uL 0.00-0.06 H code = 0487169204) LYMPH x10^3 (test code 1.93 10*3/uL 1.09-3.23 = 731-0) MONO x10^3 (test code 0.72 10*3/uL 0.36-1.02 = 742-7) EOS x10^3 (test code = 0.19 10*3/uL 0.06-0.53 711-2) BASO x10^3 (test code 0.08 10*3/uL 0.01-0.09 = 704-7) Lab Interpretation Abnormal (test code = 23831-3) [facility]"
[2023-06-23] MEDS ORDERED: DIAZEPAM 10 MG/2 ML INJ SYRINGE ONE ×2 (10:42→12:11)
[2023-06-23] MEDS ORDERED: METHYLPREDNISOLONE 125 MG INJ ONE (10:42)
[2023-06-23] MEDS ORDERED: LEVALBUTEROL 1.25 MG/3 ML NEB ONE (10:42)
[2023-06-23] MEDS ORDERED: IPRATROPIUM BROM 0.5MG/2.5ML ONE ×2 (10:42→15:00)
[2023-06-23] MEDS ORDERED: NA CHLORIDE 0.9% 1,000 ML ONE (10:43)
[2023-06-23 10:47] LABS: Absolute Lymphocytes (CBC) 1.5 K/uL (0.7-4.9); Hematocrit 46.5 % (39.6-49.0); Lymphocytes % 12.6 % (15.3-44.8); MCV 101.4 fL (80-100); MPV 6.9 fL (7.6-11.3); Platelets 242 thou/uL (152-406); RBC Red Blood Cell Count 4.58 M/uL (4.33-5.43)
[2023-06-23 10:48] LABS: Protime INR 0.91
[2023-06-23 10:54] LABS: SARS-CoV-2 Antigen Rapid Res Negative (Negative)
[2023-06-23 11:06] LABS: Albumin 3.7 g/dL (3.4-5.0); Bilirubin Direct 0.1 mg/dL (0-0.2); Bilirubin Indirect, Calculated 0.4 mg/dL (0.2-0.8); Bilirubin Total 0.5 mg/dL (0.2-1.0); Protein, Total 7.6 g/dL (6.4-8.2); Troponin High Sensitivity 5.5 pg/mL (<58.9)
--- NOTE | 2023-06-23 11:56 | RAD REPORT ---
EXAM DESCRIPTION: [place] Single View06/23/2023 11:12 am CLINICAL HISTORY: Chest pain COMPARISON: none FINDINGS: The lungs appear clear of acute infiltrate. The heart is normal size IMPRESSION: No acute abnormalities displayed
--- NOTE | 2023-06-23 11:56 | RAD REPORT ---
EXAM DESCRIPTION: CT - Angio Aorta For Dissection - 06/23/2023 11:39 am CLINICAL HISTORY: . Chest and abd pain COMPARISON: 2019 TECHNIQUE: Computed tomography angiography of the chest, abdomen pelvis were obtained. 100 cc Isovue 370 was administered intravenously. Coronal and sagittal reconstruction were performed. MIP 3D reconstruction was performed All CT scans are performed using dose optimization technique as appropriate and may include automated exposure control or mA/KV adjustment according to patient size. FINDINGS: An aortic dissection is not seen. An aortic aneurysm is not displayed. The celiac, SMA and ROGERIO are patent . A lung consolidation is not present. A pericardial effusion is not seen. A pleural effusion is not no sanjay. Gynecomastia. Atherosclerosis Fatty liver. Small nonobstructing left renal calculus. Small inguinal hernias There no evidence diverticulitis. IMPRESSION: Negative for an aortic dissection.
--- NOTE | 2023-06-23 12:03 | EDPHYS ---
Physician Documentation [facility] Name: Randy Briones Age: 52 yrs Sex: Male : 1970 Arrival Date: 06/23/2023 Time: 10:11 Bed 6 Private MD: ED Physician Dheeraj Thibodeaux HPI: 06/23 11:55 This 52 yrs old Male presents to ER via EMS with complaints of shaking, sob, pain all rn over. 11:55 Pt reports was on a 14 day heavy drinking "adkins", last drink was early yesterday, has rn had ETOH withdrawal in past, reports sob, pain all over, shaking. No seizure activity. . Onset: The symptoms/episode began/occurred yesterday. Severity of symptoms: At their worst the symptoms were severe in the emergency department the symptoms are unchanged. The patient has experienced similar episodes in the past. The patient has not recently seen a physician. Historical: - Allergies: 10:21 Lisinopril; ph - Home Meds: 10:21 Advair Diskus 250-50 mcg/dose Inhl dsdv [Active]; albuterol sulfate 2.5 mg /3 mL (0.083 ph %) Inhl nebu 3 mL 3 times per day [Active]; gabapentin 100 mg Oral cap 3 caps 3 times per day [Active]; montelukast 10 mg Oral tab 1 tab once daily [Active]; Nexium 40 mg Oral cpDR 1 cap 2 times per day [Active]; Norvasc 10 mg Oral tab once daily [Active]; Prednisone Oral [Active]; - PMHx: 10:21 Alcoholism; COPD; Hypertension; ph - PSHx: 10:21 Amputation of left index finger; ph - Immunization history:: Adult Immunizations unknown. - Social history:: Smoking status: Patient reports the use of cigarette tobacco products, smokes two packs cigarettes per day. - Family history:: not pertinent. - Hospitalizations: : No recent hospitalization is reported. ROS: 11:55 Constitutional: Negative for fever, and weight loss, Eyes: Negative for injury, pain, rn redness, and discharge, Cardiovascular: + heart racing Respiratory: + sob Abdomen/GI: + nausea MS/Extremity: Negative for injury and deformity, Skin: Negative for injury, rash, and discoloration, Neuro: Negative for headache, numbness, tingling, and seizure. Exam: 11:53 ECG was reviewed by the Attending Physician. rn 11:55 Constitutional: This is a well developed, well nourished patient who is awake, alert, rn tremulous and flushed Head/Face: Normocephalic, atraumatic. ENT: dry MM, + tongue fasciculations Cardiovascular: Tachycardic, regular Respiratory: + tachypnea with wheezing bialterally, no stridor Abdomen/GI: Soft, non-tender Skin: Warm, dry MS/ Extremity: Pulses equal, no cyanosis. Neuro: Awake and alert, GCS 15, oriented to person, place, time, and situation. Cranial nerves II-XII grossly intact. Motor strength 5/5 in all extremities. Sensory grossly intact. Vital Signs: 10:13 BP 147 / 125; Pulse 133; Resp 24; Temp 97.8; Pulse Ox 99% on R/A; ph 11:29 BP 186 / 102; Pulse 113; Resp 24; Pulse Ox 96% on R/A; me1 12:30 BP 147 / 83; Pulse 101; Resp 20; Pulse Ox 97% on R/A; ph 13:30 BP 161 / 101; Pulse 100; Resp 20; Pulse Ox 98% on R/A; ph 14:30 BP 115 / 88; Pulse 92; Resp 18; Pulse Ox 94% on R/A; ph 16:00 BP 181 / 79; Pulse 89; Resp 18; Temp 97.2; Pulse Ox 97% on R/A; ph MDM: 10:12 Patient medically screened. rn 12:00 Differential Diagnosis ETOH withdrawal, dehydration, COPD exacerbation. Data reviewed: rn vital signs, nurses notes, lab test result(s), EKG, radiologic studies, CT scan, and as a result, I will discharge patient. Consideration of Admission/Observation Patient was admitted/placed on observation. Escalation of care including admission/observation considered. Care significantly affected by the following chronic conditions: Hypertension, Chronic Obstructive Pulmonary Disease. Counseling: I had a detailed discussion with the patient and/or guardian regarding: the historical points, exam findings, and any diagnostic results supporting the discharge/admit diagnosis, lab results, radiology results, the need for further work-up and treatment in the hospital. Response to treatment: the patient's symptoms have markedly improved after treatment, and as a result, I will admit patient. 06/23 10:14 Order name: Basic Metabolic Panel; Complete Time: 11:06/23 10:14 Order name: CBC with Diff; Complete Time: :06/23 10:14 Order name: LFT's; Complete Time: :06/23 10:14 Order name: NT PRO-BNP; Complete Time: :06/23 10:14 Order name: PT-INR; Complete Time: :06/23 10:14 Order name: Troponin HS; Complete Time: :06/23 10:15 Order name: Flu; Complete Time: :06/23 10:15 Order name: SARS RAPID; Complete Time: 06/23 10:17 Order name: Salicylate; Complete Time: 06/23 10:17 Order name: Acetaminophen; Complete Time: :06/23 13:14 Order name: Magnesium EDMS 06/23 13:14 Order name: Phosphorus EDMS 06/23 13:14 Order name: Urinalysis w/ reflexes EDMS 06/23 13:14 Order name: Basic Metabolic Panel EDMS 06/23 13:14 Order name: Basic Metabolic Panel EDMS 06/23 13:14 Order name: CBC with Automated Diff EDMS 06/23 13:14 Order name: CBC with Automated Diff EDMS 06/23 13:14 Order name: Lipid Profile EDMS 06/23 13:14 Order name: Lipid Profile EDMS 06/23 10:14 Order name: XRAY Chest (1 view); Complete Time: 11:59 06/23 10:14 Order name: CT Aorta for Dissection; Complete Time: 11:59 06/23 10:14 Order name: EKG; Complete Time: 10:14 06/23 13:16 Order name: Heart Healthy EDMS 06/23 10:14 Order name: Cardiac monitoring; Complete Time: 10:23 06/23 10:14 Order name: EKG - Nurse/Tech; Complete Time: 11:21 06/23 10:14 Order name: IV Saline Lock; Complete Time: 10:32 06/23 10:14 Order name: Labs collected and sent; Complete Time: 10:32 06/23 10:14 Order name: O2 Per Protocol; Complete Time: : rn 06/23 10:14 Order name: O2 Sat Monitoring; Complete Time: : rn EC:53 Rate is 116 beats/min. Rhythm is regular. QRS [place] is Normal. AL interval is normal. rn QRS interval is normal. QT interval is normal. No Q waves. T waves are Normal. No ST changes noted. Clinical impression: Sinus tachycardia. Interpreted by me. Reviewed by me. Administered Medications: 10:42 Drug: Diazepam IVP 10 mg Route: IVP; Site: right antecubital; me1 10:42 Drug: Ipratropium Inhalation Aerosol 0.5 mg Route: Inhalation; me1 10:42 Drug: MethylPrednisoLONE IVP 125 mg Route: IVP; Site: right antecubital; me1 10:42 Drug: NS 0.9% IV 1000 ml Route: IV; Rate: 1000 ml; Site: right antecubital; me1 10:43 Drug: Levalbuterol Inhalation 1.25 mg Route: Inhalation; me1 12:05 Drug: Diazepam IVP 5 mg Route: IVP; Site: right antecubital; me1 13:05 Follow up: Response: No adverse reaction; Other me1 12:05 Drug: morphine IVP or IV 4 mg Route: IVP; Infused Over: 4 mins; Site: right antecubital;me1 13:05 Follow up: Response: No adverse reaction; Pain is decreased me1 Disposition Summary: 06/23/23 12:02 Hospitalization Ordered Hospitalization Status: Inpatient Admission rn Provider: Shay Curran rn Location: Intensive Care Unit rn Condition: Fair rn Problem: new rn Symptoms: have improved rn Bed/Room Type: Standard rn Room Assignment: 7-(06/23/23 15:36) bd Diagnosis - Alcohol dependence with withdrawal, unspecified rn - COPD/ Chronic obstructive pulmonary disease, unspecified rn Forms: - Medication Reconciliation Form rn - SBAR form rn - 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 Total time: 40 rn minutes Signatures: Dispatcher [employer] EDLeticia Malone Roman, MD MD rn Hall, Patricia, RN RN ph Eddleman, Michelle, RN RN me1 Corrections: (The following items were deleted from the chart) 15:36 12:02 rn bd
--- NOTE | 2023-06-23 12:03 | ER ---
Nurse's Notes [facility] Name: Randy Briones Age: 52 yrs Sex: Male : 1970 Arrival Date: 06/23/2023 Time: 10:11 Bed 6 Private MD: Diagnosis: Alcohol dependence with withdrawal, unspecified;COPD/ Chronic obstructive pulmonary disease, unspecified Presentation: 06/23 10:13 Chief complaint: EMS states: Pt c/o SOB, chest pain and ETOH withdrawal, admits to "going on a 14 day adkins" reports that he was drinking a 24 pack of beer per day, last drink was yesterday, BP elevated at 180s systolic, HR elevated in 140s, room air spo2 96%. Coronavirus screen: Vaccine status: Patient reports receiving the 2nd dose of the covid vaccine. Ebola Screen: No symptoms or risks identified at this time. Initial Sepsis Screen: Does the patient meet any 2 criteria? No. Patient's initial sepsis screen is negative. Does the patient have a suspected source of infection? No. Patient's initial sepsis screen is negative. Risk Assessment: Do you want to hurt yourself or someone else? Patient reports no desire to harm self or others. Onset of symptoms was June 23, 2023. 10:13 Method Of Arrival: EMS: [facility] 10:13 Acuity: CANDACE 2 ph Historical: - Allergies: 10:21 Lisinopril; ph - Home Meds: 10:21 Advair Diskus 250-50 mcg/dose Inhl dsdv [Active]; albuterol sulfate 2.5 mg /3 mL (0.083 ph %) Inhl nebu 3 mL 3 times per day [Active]; gabapentin 100 mg Oral cap 3 caps 3 times per day [Active]; montelukast 10 mg Oral tab 1 tab once daily [Active]; Nexium 40 mg Oral cpDR 1 cap 2 times per day [Active]; Norvasc 10 mg Oral tab once daily [Active]; Prednisone Oral [Active]; - PMHx: 10:21 Alcoholism; COPD; Hypertension; ph - PSHx: 10:21 Amputation of left index finger; ph - Immunization history:: Adult Immunizations unknown. - Social history:: Smoking status: Patient reports the use of cigarette tobacco products, smokes two packs cigarettes per day. - Family history:: not pertinent. - Hospitalizations: : No recent hospitalization is reported. Screenin:24 [facility] ED Fall Risk Assessment (Adult) Score/Fall Risk Level 0 - 2 = Low Risk. Abuse me1 screen: Denies threats or abuse. Nutritional screening: No deficits noted. Tuberculosis screening: No symptoms or risk factors identified. Assessment: 11:23 General: Appears uncomfortable, obese, Behavior is cooperative, appropriate for age, me1 anxious, restless. 11:24 General: Reports SOB, CP and ETOH withdrawal. States he has been on a 14 day adikns, me1 drinking a 24 pack a day. Last drink was yesterday. Denies fever, feeling ill, fatigue, chills, Anxiety noted, tremors, productive cough, intermittent moaning noted. . Pain: Complains of pain in abdomen Pain does not radiate. Pain currently is 7 out of 10 on a pain scale. Quality of pain is described as pressure, Pain began gradually, Is continuous. Neuro: Level of Consciousness is awake, alert, obeys commands, anxious with tremors.. Oriented to person, place, time, situation, Appropriate for age. Cardiovascular: Capillary refill < 3 seconds Patient's skin is warm and dry. Respiratory: Airway is patent Respiratory effort is even, unlabored, Respiratory pattern is regular, symmetrical, Sputum is thick, white. GI: Patient currently denies constipation, diarrhea, nausea, vomiting. : Denies burning with urination, pain urinary frequency, urgency. Musculoskeletal:. 15:55 Reassessment: Patient appears in no apparent distress at this time. Patient and/or ph family updated on plan of care and expected duration. Pain level reassessed. Patient is alert, oriented x 3, equal unlabored respirations, skin warm/dry/pink. Patient is alert/active/playful, equal unlabored respirations, skin warm/dry/pink. Vital Signs: 10:13 BP 147 / 125; Pulse 133; Resp 24; Temp 97.8; Pulse Ox 99% on R/A; ph 11:29 BP 186 / 102; Pulse 113; Resp 24; Pulse Ox 96% on R/A; me1 12:30 BP 147 / 83; Pulse 101; Resp 20; Pulse Ox 97% on R/A; ph 13:30 BP 161 / 101; Pulse 100; Resp 20; Pulse Ox 98% on R/A; ph 14:30 BP 115 / 88; Pulse 92; Resp 18; Pulse Ox 94% on R/A; ph 16:00 BP 181 / 79; Pulse 89; Resp 18; Temp 97.2; Pulse Ox 97% on R/A; ph ED Course: 10:12 Patient arrived in ED. rn 10:12 Dheeraj Thibodeaux MD is Attending Physician. rn 10:21 Triage completed. ph 10:22 Arm band placed on Patient placed in an exam room, on a stretcher. ph 10:23 Angle Hoover, RN is Primary Nurse. ph 10:32 Salicylate Sent. me1 10:32 Acetaminophen Sent. me1 10:32 SARS RAPID Sent. me1 10:32 Flu Sent. me1 10:32 Maintain EMS IV. Dressing intact. Good blood return noted. Site clean \\T\\ dry. Gauge \\T\\ me 1 site: 18gauze RAC. 11:14 XRAY Chest (1 view) In Process Unspecified. EDMS 11:24 Patient has correct armband on for positive identification. Bed in low position. Call me1 light in reach. Side rails up X2. Provided Education on: POC. Verbalized understanding. . 11:24 No provider procedures requiring assistance completed. me1 11:24 Maintain EMS IV. Dressing intact. Good blood return noted. Site clean \\T\\ dry. me1 11:41 CT Aorta for Dissection In Process Unspecified. EDMS 12:02 Shay Curran MD is Hospitalizing Provider. rn 16:37 Patient admitted, IV remains in place. ph Administered Medications: 10:42 Drug: Diazepam IVP 10 mg Route: IVP; Site: right antecubital; me1 10:42 Drug: Ipratropium Inhalation Aerosol 0.5 mg Route: Inhalation; me1 10:42 Drug: MethylPrednisoLONE IVP 125 mg Route: IVP; Site: right antecubital; me1 10:42 Drug: NS 0.9% IV 1000 ml Route: IV; Rate: 1000 ml; Site: right antecubital; me1 10:43 Drug: Levalbuterol Inhalation 1.25 mg Route: Inhalation; me1 12:05 Drug: Diazepam IVP 5 mg Route: IVP; Site: right antecubital; me1 13:05 Follow up: Response: No adverse reaction; Other me1 12:05 Drug: morphine IVP or IV 4 mg Route: IVP; Infused Over: 4 mins; Site: right antecubital;me1 13:05 Follow up: Response: No adverse reaction; Pain is decreased me1 Medication: 11:24 VIS not applicable for this client. me1 Outcome: 12:02 Decision to Hospitalize by Provider. rn 16:37 Admitted to ICU accompanied by nurse, via stretcher, room 7, on monitor, with chart, ph Report called to Lorraine Wood 16:37 Condition: stable 16:37 Instructed on the need for admit. 16:38 Patient left the ED. ph Signatures: Dispatcher [employer] EDDheeraj Ibarra MD MD rn Hall, Patricia, RN RN ph Eddleman, Michelle, RN RN me1
[2023-06-23] MEDS ORDERED: MORPHINE 4 MG/ML SYR ONE (12:06)
[2023-06-23] MEDS ORDERED: ACETAMINOPHEN 325 MG TABLET PO PRN (13:08)
[2023-06-23] MEDS ORDERED: TRAMADOL HCL 50 MG TAB PO PRN (13:08)
[2023-06-23] MEDS ORDERED: ONDANSETRON 4 MG/2 ML VIAL IV PRN (13:12)
[2023-06-23 14:35] LABS: Magnesium 1.9 mg/dL (1.6-2.4); Phosphorus 4.1 mg/dL (2.5-4.9)
[2023-06-23] MEDS: ALBUTEROL 2.5 MG/3 ML NEB SOL NEB SCH ×2 (14:40→20:05)
[2023-06-23] MEDS: IPRATROPIUM BROM 0.5MG/2.5ML NEB SCH ×2 (14:40→20:05)
[2023-06-23] MEDS ORDERED: FLUMAZENIL 0.1 MG/ML (5 mL VIAL) IV PRN (14:57)
[2023-06-23] MEDS ORDERED: LORazepam 2 MG/ML VIAL IV SCH (15:00)
[2023-06-23] MEDS ORDERED: ALBUTEROL 2.5 MG/3 ML NEB SOL ONE (15:00)
[2023-06-23] MEDS: LORazepam 2 MG/ML VIAL IV PRN ×2 (16:30→20:46)
[2023-06-23] MEDS: FOLIC ACID 1 MG, MULTIVITAMINS INJ 10 ML, THIAMINE HCL 100 MG in NA CHLORIDE 0.9% 1,000 ML IV SCH (16:30)
[2023-06-23] MEDS ORDERED: chlordiazePOXIDE HCl 25 MG CAP PO ONE (16:35)
[2023-06-23] MEDS: HYDROCODONE/APAP 10/325 TAB PO PRN (16:47)
[2023-06-23] MEDS: NICOTINE 21 MG/PAT TD SCH (17:19)
--- NOTE | 2023-06-23 18:21 | P.HP ---
Certification for Inpatient Patient admitted to: Inpatient With expected LOS: >2 Midnights Patient will require the following post-hospital care: None Practitioner: I am a practitioner with admitting privileges, knowledge of patient current condition, hospital course, and medical plan of care. Services: Services provided to patient in accordance with Admission requirements found in Title 42 Section 412.3 of the Code of Federal Regulations Patient History Date of Service: 06/23/23 Reason for admission: SOB, Tremors History of Present Illness: Patient is a 52-year-old male with a past medical history significant for alcohol abuse, COPD, GERD, hypertension who presents with complaint of shortness of breath and generalized tremors onset this morning. Patient reported that he is a daily drinker and stopped drinking yesterday. Patient reported that this morning he started experiencing shortness of breath and generalized tremors. Patient also reports chest pain located in the left chest area, rated as 10/10 in severity and described as sharp in quality. Patient reported associated signs and symptoms of cough, dizziness, blurry vision, diarrhea, poor gait and generalized abdominal pain. Patient rated pain as 10/10 in severity and described pain as burning in quality. Patient denies any other signs and symptoms. Symptoms are aggravated or relieved by nothing. Patient decided to present to the hospital due to worsening symptoms. Of note, patient reported that he ran out of all his home medications. Allergies lisinopril Allergy (Verified 04/26/22 13:11) Shortness of breath BC powder Allergy (Mild, Uncoded 04/26/22 13:10) Hives Lisinopril Allergy (Mild, Uncoded 04/26/22 13:10) Shortness of breath Home Medications: predniSONE [Prednisone*] 10 mg PO DAILY #30 tab 04/28/22 Pantoprazole Sodium 40 mg PO BID #60 tab 11/24/22 Budesonide/Formoterol Fumarate [Symbicort 160-4.5 Mcg Inhaler] 2 puff IH DAILY 06/23/23 Spironolactone [Aldactone*] 25 mg PO DAILY 06/23/23 Tiotropium [place] [Spiriva] 2 puff IH DAILY 06/23/23 - Past Medical/Surgical History Has patient received pneumonia vaccine in the past: Yes Diabetic: No -: Hypertension -: COPD on chronic steroids/home O2 -: Tobacco abuse -: Alcohol abuse -: GERD -: Obesity -: BUD -: 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 - Family History Mother -: Diabetes, Cancer Notes: colon cancer Father -: Lung disease Notes: COPD - Social History Smoking Status: Current every day smoker Counseled patient to stop smoking for: less than 10 minutes Smoking therapy provided: Yes Patient receptive to therapy: Yes Alcohol use: Yes CD- Drugs: No Caffeine use: No Place of Residence: Home Review of Systems General: Other (Generalized tremors) Eyes: Vision Change ENT: Unremarkable Respiratory: Shortness of Breath Cardiovascular: Chest Pain Gastrointestinal: Abdominal Pain, Diarrhea Genitourinary: Unremarkable Musculoskeletal: Unremarkable Integumentary: Unremarkable Neurological: Other (Dizziness, blurry vision, poor gait) Lymphatics: Unremarkable Physical Examination - Vital Signs Temperature: 98.2 F Blood Pressure: 160/79 Pulse: 92 Respirations: 16 Pulse Ox (%): 91 - Physical Exam General: Alert, In no apparent distress, Oriented x3, Cooperative, Mild distress, Other (Generalized tremors) HEENT: Atraumatic, PERRLA, Mucous membr. moist/pink, EOMI, Sclerae nonicteric Neck: Supple, 2+ carotid pulse no bruit, No LAD, Without JVD or thyroid abnormality Respiratory: Clear to auscultation bilaterally, Normal air movement Cardiovascular: No edema, Normal S1 S2, Irregular heart rate/rhythm Capillary refill: <2 Seconds Gastrointestinal: Normal bowel sounds, Distended, Tenderness Musculoskeletal: No clubbing, No swelling, No tenderness Integumentary: No rashes, No breakdown, No significant lesion Neurological: Normal speech, Normal tone, Normal affect Lymphatics: No axilla or inguinal lymphadenopathy - Studies Laboratory Data (last 24 hrs) 06/23/23 06/23/23 06/23/23 10:28 10:25 10:25 WBC 11.60 H Hgb 15.7 Hct 46.5 Plt Count 242 PT 10.0 INR 0.91 Sodium 135 L Potassium 4.0 BUN 6 L Creatinine 0.76 Glucose 141 H Total Bilirubin 0.5 AST 26 ALT 23 Alkaline Phosphatase 73 Microbiology Data (last 24 hrs): 06/23/23 10:29 Nasopharnyx Influenza Type A Antigen Screen - Final 06/23/23 10:29 Nasopharnyx Influenza Type B Antigen Screen - Final Assessment and Plan - Plan --Alcohol abuse with withdrawal syndrome. Patient placed on banana bag and Librium. Continue alcohol withdrawal protocol and assessment. Patient counseled on alcohol cessation. Continue supportive care. --Acute on chronic COPD exacerbation. Continue neb treatment with albuterol\Atrovent. Continue steroids and home medications. -- Nicotine dependence. Patient placed on nicotine patch and counseled on tobacco cessation. --GERD. Continue Protonix. -- Hypertension. Poorly controlled. We will manage BP with labetalol as needed. -- Mild leukocytosis. Likely reactive versus steroid-induced. We will continue to monitor WBC levels. Stable. Continue home medications. --Chest pain. Likely atypical. Serial troponins negative so far. Telemetry to monitor for any significant arrhythmia. Continue supportive care. --Abdominal pain. CT imaging of the abdomen indicated fatty liver otherwise unremarkable.. We will manage pain with current pain medication regimen. --Diarrhea. We will get some stool studies to rule out any infection. Continue supportive care --DVT prophylaxis with Lovenox subQ. Discharge Plan: Home Plan to discharge in: Greater than 2 days - Advance Directives Does patient have a Living Will: No Does patient have a Durable POA for Healthcare: No - Code Status/Comfort Care Code Status Assessed: Yes Physician Review: Patient Assessed, Agree with Above Assessment and Plan Critical Care: No
[2023-06-23] MEDS ORDERED: LABETALOL 20 MG/4ML SYRINGE IV PRN (18:35)
[2023-06-23] MEDS: chlordiazePOXIDE HCl 25 MG CAP PO SCH (20:46)
[2023-06-23] MEDS: PANTOPRAZOLE 40MG TABLET PO SCH (20:46)
[2023-06-23 21:03] LABS: Urine Bacteria None Seen /HPF (<20); Urine Bilirubin NEGATIVE (Negative); Urine Blood Negative (Negative); Urine Clarity Clear (Clear); Urine Color Yellow (Yellow); Urine Glucose 2+ (Negative); Urine Mucus Slight /HPF (None Seen); Urine Protein TRACE (Negative); Urine RBC <5 /HPF (None Seen); Urine Urobilinogen Normal (Normal)
[2023-06-23 21:45] LABS: Specific Gravity > 1.030 (1.005-1.030)
[2023-06-24] MEDS: ALBUTEROL 2.5 MG/3 ML NEB SOL NEB SCH ×4 (01:40→20:30)
[2023-06-24] MEDS: IPRATROPIUM BROM 0.5MG/2.5ML NEB SCH ×4 (01:40→20:30)
[2023-06-24 01:45] LABS: Absolute Lymphocytes (CBC) 0.7 K/uL (0.7-4.9); Hematocrit 40.2 % (39.6-49.0); MCV 101.4 fL (80-100); Platelets 183 thou/uL (152-406); RBC Red Blood Cell Count 3.97 M/uL (4.33-5.43)
[2023-06-24 02:16] LABS: Magnesium 2.1 mg/dL (1.6-2.4); Phosphorus 2.6 mg/dL (2.5-4.9); Potassium 3.5 mEq/L (3.5-5.1)
[2023-06-24] MEDS: LORazepam 2 MG/ML VIAL IV PRN ×5 (04:56→23:25)
[2023-06-24] MEDS: HYDROCODONE/APAP 10/325 TAB PO PRN ×4 (04:56→23:24)
[2023-06-24] MEDS: SPIRONOLACTONE 25 MG TABLET PO SCH (08:11)
[2023-06-24] MEDS: ENOXAPARIN 40 MG/0.4 ML SQ SCH (08:11)
[2023-06-24] MEDS: NICOTINE 21 MG/PAT TD SCH (08:11)
[2023-06-24] MEDS: ASPIRIN 81 MG CHEWABLE TABLET PO SCH (08:11)
[2023-06-24] MEDS: TIOTROPIUM 5 SPRAYS/INHALER IH SCH (08:12)
[2023-06-24] MEDS: PANTOPRAZOLE 40MG TABLET PO SCH ×2 (08:12→20:05)
[2023-06-24] MEDS: chlordiazePOXIDE HCl 25 MG CAP PO SCH ×3 (08:12→20:06)
[2023-06-24] MEDS: AMLODIPINE 10 MG TAB PO SCH (08:12)
[2023-06-24] MEDS ORDERED: POTASSIUM CL SA 10 MEQ TAB PO ONE (09:00)
[2023-06-24] MEDS ORDERED: predniSONE 10 MG TAB PO SCH (09:00)
[2023-06-24] MEDS: Budesonide/Formoterol Fumarate [Symbicort 160-4.5 Mcg Inhaler] 10.2 GM IH SCH (09:00)
[2023-06-24] MEDS: FOLIC ACID 1 MG, MULTIVITAMINS INJ 10 ML, THIAMINE HCL 100 MG in NA CHLORIDE 0.9% 1,000 ML IV SCH (09:00)
[2023-06-24] MEDS ORDERED: MORPHINE 2 MG/ML SYR IV ONE (14:11)
--- NOTE | 2023-06-24 15:47 | P.PN ---
Subjective Date of Service: 06/24/23 Chief Complaint: SOB, Tremors No acute events overnight. He appears less tremulous/anxious today. He reports that his last alcohol beverage was on the evening of 06/22/2023. He denies any chest pain, palpitations, or shortness of breath. Review of Systems 10-point ROS is otherwise unremarkable Neurological: Other (tremors) Physical Examination - Vital Signs Temperature: 97.7 F Blood Pressure: 137/76 Pulse: 99 Respirations: 14 Pulse Ox (%): 97 - Physical Exam General: Alert, In no apparent distress, Oriented x3 HEENT: Atraumatic, Mucous membr. moist/pink, Sclerae nonicteric Neck: JVD not distended Respiratory: Clear to auscultation bilaterally, Normal air movement Cardiovascular: No edema, Regular rate/rhythm, Normal S1 S2, No gallops, No rubs, No murmurs Gastrointestinal: Normal bowel sounds, Soft and benign, Non-distended Musculoskeletal: No clubbing Integumentary: No rashes Neurological: Normal speech, Normal affect - Studies Microbiology Data (last 24 hrs): 06/23/23 10:29 Nasopharnyx Influenza Type A Antigen Screen - Final 06/23/23 10:29 Nasopharnyx Influenza Type B Antigen Screen - Final Assessment And Plan - Plan # Alcohol Use Disorder with Alcohol Withdrawal Syndrome - Monitoring with [facility] protocol - Started on folic acid, thiamine, chlordiazepoxide - PRN lorazepam - Alcohol cessation counseling provided # Acute Chronic Obstructive Pulmonary Disease Exacerbation # SIRS Criteria (Tachypnea, Tachycardia) likely due to COPD Exacerbation - no evidence of infection # Tobacco Use Disorder - Evaluation thus far: - Physical exam = end-expiratory wheezing throughout - Chest x-ray = "no acute abnormalities displayed" - Management plan: - Consulted Pulmonology - recommendations appreciated - Bronchodilators and steroids per Pulm - Consulted Respiratory Therapy - Supplemental oxygen to maintain SpO2 > 92% - Assess inhaler technique one improved from COPD exacerbation - Encouraged incentive spirometry # Hypertension - Continue amlodipine # Gastroesphageal Reflux Disease - Continue home pantoprazole Shay Curran M.D.
[2023-06-24] MEDS ORDERED: METHYLPREDNISOLONE 125 MG INJ IV PRN (16:00)
--- NOTE | 2023-06-24 16:17 | RAD REPORT ---
EXAM DESCRIPTION: RAD - Femur Right - 06/24/2023 3:25 pm CLINICAL HISTORY: pain COMPARISON: <Comparisons> FINDINGS: Mild right hip osteoarthritis. No fracture, dislocation or AVN.
--- NOTE | 2023-06-24 16:18 | RAD REPORT ---
EXAM DESCRIPTION: RAD - Tib Fib Right - 06/24/2023 3:25 pm CLINICAL HISTORY: pain Pain and swelling COMPARISON: <Comparisons> FINDINGS: No acute fracture or dislocation seen.
--- NOTE | 2023-06-24 18:29 | EKG ---
Test Date: 2023-06-23 Test Time: 11:17:33 [employer] T[employer]: MEASUREMENT RESULTS: Intervals: Rate: 116 IL: 126 QRSD: 98 QT: 358 QTc: 497 [place]: P: 73 IL: 126 QRS: 91 T: 77 INTERPRETIVE STATEMENTS: Sinus tachycardia Nonspecific ST abnormality Abnormal ECG Compared to ECG 04/12/2023 16:02:14 ST (T wave) deviation now present Sinus rhythm no longer present Electronically Signed On 06-24-23 18:27:00 CDT by Rosalino Albert
[2023-06-25] MEDS: ALBUTEROL 2.5 MG/3 ML NEB SOL NEB SCH ×4 (01:05→20:35)
[2023-06-25] MEDS: IPRATROPIUM BROM 0.5MG/2.5ML NEB SCH ×4 (01:05→20:35)
[2023-06-25 05:23] LABS: Magnesium 2.1 mg/dL (1.6-2.4); Phosphorus 2.7 mg/dL (2.5-4.9); Potassium 3.4 mEq/L (3.5-5.1)
[2023-06-25] MEDS ORDERED: POTASSIUM 25 MEQ EFFERV TAB PO ONE (05:45)
[2023-06-25] MEDS: HYDROCODONE/APAP 10/325 TAB PO PRN (06:04)
[2023-06-25] MEDS: ENOXAPARIN 40 MG/0.4 ML SQ SCH (08:36)
[2023-06-25] MEDS: chlordiazePOXIDE HCl 25 MG CAP PO SCH ×3 (08:37→20:07)
[2023-06-25] MEDS: AMLODIPINE 10 MG TAB PO SCH (08:37)
[2023-06-25] MEDS: NICOTINE 21 MG/PAT TD SCH (08:37)
[2023-06-25] MEDS ORDERED: METHYLPREDNISOLONE 40 MG INJ IV PRN (08:37)
[2023-06-25] MEDS: LORazepam 2 MG/ML VIAL IV PRN ×4 (08:37→23:18)
[2023-06-25] MEDS: SPIRONOLACTONE 25 MG TABLET PO SCH (08:38)
[2023-06-25] MEDS: ASPIRIN 81 MG CHEWABLE TABLET PO SCH (08:38)
[2023-06-25] MEDS: PANTOPRAZOLE 40MG TABLET PO SCH ×2 (08:39→20:08)
[2023-06-25] MEDS: FOLIC ACID 1 MG, MULTIVITAMINS INJ 10 ML, THIAMINE HCL 100 MG in NA CHLORIDE 0.9% 1,000 ML IV SCH (08:39)
[2023-06-25] MEDS: Budesonide/Formoterol Fumarate [Symbicort 160-4.5 Mcg Inhaler] 10.2 GM IH SCH (08:39)
[2023-06-25] MEDS: TIOTROPIUM 5 SPRAYS/INHALER IH SCH (08:39)
[2023-06-25] MEDS ORDERED: LORazepam 2 MG/ML VIAL IV SCH (15:00)
--- NOTE | 2023-06-25 17:17 | P.PN ---
Subjective Date of Service: 06/25/23 Chief Complaint: SOB, Tremors No acute events overnight. His tremulousness is much improved compared to yesterday. Will begin tapering chlordiazepoxide as tolerated. He denies any chest pain, palpitations, or shortness of breath. Review of Systems 10-point ROS is otherwise unremarkable General: Other (tremulousness) Physical Examination - Vital Signs Temperature: 98.3 F Blood Pressure: 140/81 Pulse: 87 Respirations: 19 Pulse Ox (%): 91 Assessment And Plan - Plan - Physical Exam General: Alert, In no apparent distress, Oriented x3 HEENT: Atraumatic, Mucous membr. moist/pink, Sclerae nonicteric Respiratory: Very faint end expiratory wheezing Cardiovascular: No edema, Regular rate/rhythm, No murmurs Gastrointestinal: Normal bowel sounds, Soft and benign, Non-distended Musculoskeletal: No clubbing Integumentary: No rashes Neurological: Normal speech, Normal affect # Alcohol Use Disorder with Alcohol Withdrawal Syndrome - Monitoring with [facility] protocol - Started on folic acid, thiamine, chlordiazepoxide (wean as able) - PRN lorazepam - Alcohol cessation counseling provided # Acute Chronic Obstructive Pulmonary Disease Exacerbation # SIRS Criteria (Tachypnea, Tachycardia) likely due to COPD Exacerbation - no evidence of infection # Tobacco Use Disorder - Evaluation thus far: - Physical exam = end-expiratory wheezing throughout - Chest x-ray = "no acute abnormalities displayed" - Management plan: - Consulted Pulmonology - recommendations appreciated - Bronchodilators and steroids per Pulm - Consulted Respiratory Therapy - Supplemental oxygen to maintain SpO2 > 92% - Assess inhaler technique one improved from COPD exacerbation - Encouraged incentive spirometry # Hypertension - Continue amlodipine # Gastroesphageal Reflux Disease - Continue home pantoprazole Shay Curran M.D.
[2023-06-26] MEDS: ALBUTEROL 2.5 MG/3 ML NEB SOL NEB SCH ×2 (01:35→08:10)
[2023-06-26] MEDS: IPRATROPIUM BROM 0.5MG/2.5ML NEB SCH ×2 (01:35→08:10)
[2023-06-26] MEDS: HYDROCODONE/APAP 10/325 TAB PO PRN (02:00)
[2023-06-26] MEDS: LORazepam 2 MG/ML VIAL IV PRN (03:56)
[2023-06-26 05:10] VITALS: BMI 29.1
[2023-06-26 05:32] LABS: Magnesium 1.9 mg/dL (1.6-2.4); Phosphorus 2.9 mg/dL (2.5-4.9); Potassium 3.5 mEq/L (3.5-5.1)
[2023-06-26] MEDS: TIOTROPIUM 5 SPRAYS/INHALER IH SCH (09:00)
[2023-06-26] MEDS: PANTOPRAZOLE 40MG TABLET PO SCH (09:00)
[2023-06-26] MEDS: Budesonide/Formoterol Fumarate [Symbicort 160-4.5 Mcg Inhaler] 10.2 GM IH SCH (09:00)
[2023-06-26] MEDS: SPIRONOLACTONE 25 MG TABLET PO SCH (09:00)
[2023-06-26] MEDS: NICOTINE 21 MG/PAT TD SCH (09:00)
[2023-06-26] MEDS: ENOXAPARIN 40 MG/0.4 ML SQ SCH (09:00)
[2023-06-26] MEDS ORDERED: POTASSIUM CL SA 10 MEQ TAB PO ONE (09:00)
[2023-06-26] MEDS: ASPIRIN 81 MG CHEWABLE TABLET PO SCH (09:00)
[2023-06-26] MEDS: chlordiazePOXIDE HCl 25 MG CAP PO SCH (09:00)
[2023-06-26] MEDS: AMLODIPINE 10 MG TAB PO SCH (09:00)
[2023-06-26] MEDS: FOLIC ACID 1 MG, MULTIVITAMINS INJ 10 ML, THIAMINE HCL 100 MG in NA CHLORIDE 0.9% 1,000 ML IV SCH (09:00)
[2023-06-26 09:12] VITALS: BP 140/72
[2023-06-26 09:13] VITALS: TEMP 99.7
--- NOTE | 2023-06-26 09:26 | P.DS ---
Admission Date: 06/23/23 Discharge Date: 06/26/23 Disposition: AMA-LEFT AGAINST MEDICAL ADVIC Discharge Condition: FAIR Reason for Admission: SOB, Tremors Consultations: 1. Pulmonology Hospital Course: DIAGNOSES: # Alcohol Use Disorder with Alcohol Withdrawal Syndrome # Acute Chronic Obstructive Pulmonary Disease Exacerbation # SIRS Criteria (Tachypnea, Tachycardia) likely due to COPD Exacerbation - no evidence of infection # Tobacco Use Disorder # Hypertension # Gastroesphageal Reflux Disease HOSPITAL COURSE: Ms. Randy Briones is a 53 year old male with a past medical history significant for alcohol use disorder, chronic obstructive pulmonary disorder, hypertension, and gastroesophageal reflux disease who was admitted to the [facility] on 06/23/2023 for shortness of breath and tremors. He was admitted to the Medicine service. Upon further evaluation, he was found to have alcohol withdrawal syndrome as well as an acute COPD exacerbation. He was started on scheduled chlordiazepoxide and PRN lorazepam. In regards to his COPD, a chest x-ray revealed, "no acute abnormalities displayed." Pulmonology was consulted and he was evaluated by Dr. Martinez, who started him on steroids and bronchodilators. Although he had significant improvement in his symptoms, he was still requiring PRN doses of lorazepam as recently as this morning at 03:56 AM. This morning, he stated that he felt well and would like to be discharged home. It was explained to him that, since he is still requiring PRN lorazepam, it is advised that he remain hospitalized to complete his alcohol detoxification benzodiazepine taper. I explained to him that alcohol withdrawal is a serious condition that can result in significant clinical decompensation, seizures, and . He is alert and oriented and verbalized understanding of the risks of premature discharge. He verbalized that he would like to leave today despite these risks and he has signed out against medical advice. Based on his ability to understand his disease process, understand the consequences of not pursuing therapy, communicate that he would like to be discharged, and his ability to explain his rationale for being discharged, we believe that he has medical decision making capacity. On 06/26/2023, he was seen on rounds. He was provided prescriptions for chlordiazepoxide and prednisone. He was given the opportunity to ask questions and reported no further questions. Furthermore, all questions were answered to the best of my ability. A copy of this discharge summary will be sent to the above providers to facilitate continuity of care. Today, I personally spent 25 minutes on his case, of which greater than 50% of the time was spent in patient education, counseling, and coordination of care as described above. - Physical Exam General: Alert, In no apparent distress, Oriented x3 HEENT: Atraumatic, Sclerae nonicteric Respiratory: Clear to auscultation bilaterally Cardiovascular: No edema, Regular rate/rhythm, No murmurs Gastrointestinal: Soft and benign, Non-distended, Non-tender Musculoskeletal: No clubbing Integumentary: No rashes Neurological: Normal speech, Normal affect Vital Signs/Physical Exam: Temp Pulse Resp BP Pulse Ox 99.7 F 79 20 140/72 91 06/26/23 08:00 06/26/23 08:00 06/26/23 04:00 06/26/23 08:00 06/26/23 08:00 Laboratory Data at Discharge: WBC 5.60 thou/uL (4.3-10.9) 06/24/23 01:20 Hgb 13.6 g/dL (13.6-17.9) D 06/24/23 01:20 Hct 40.2 % (39.6-49.0) 06/24/23 01:20 Plt Count 183 thou/uL (152-406) 06/24/23 01:20 PT 10.0 SECONDS (9.5-12.5) 06/23/23 10:25 INR 0.91 06/23/23 10:25 Sodium 136 mEq/L (136-145) 06/26/23 04:54 Potassium 3.5 mEq/L (3.5-5.1) 06/26/23 04:54 BUN 9 mg/dL (7-18) 06/26/23 04:54 Creatinine 0.65 mg/dL (0.70-1.30) L 06/26/23 04:54 Glucose 93 mg/dL (74-106) 06/26/23 04:54 Phosphorus 2.9 mg/dL (2.5-4.9) 06/26/23 04:54 Magnesium 1.9 mg/dL (1.6-2.4) 06/26/23 04:54 Total Bilirubin 0.5 mg/dL (0.2-1.0) 06/23/23 10:28 AST 26 U/L (15-37) 06/23/23 10:28 ALT 23 U/L (16-61) 06/23/23 10:28 Alkaline Phosphatase 73 U/L (45-117) 06/23/23 10:28 Triglycerides 63 mg/dL (<150) 06/24/23 01:20 Cholesterol 195 mg/dL (<200) 06/24/23 01:20 HDL Cholesterol 106 mg/dL (40-60) H 06/24/23 01:20 Cholesterol/HDL Ratio 1.84 06/24/23 01:20 Home Medications: predniSONE [Prednisone*] 10 mg PO DAILY #30 tab 04/28/22 Pantoprazole Sodium 40 mg PO BID #60 tab 11/24/22 Budesonide/Formoterol Fumarate [Symbicort 160-4.5 Mcg Inhaler] 2 puff IH DAILY 06/23/23 Spironolactone [Aldactone*] 25 mg PO DAILY 06/23/23 Tiotropium [place] [Spiriva] 2 puff IH DAILY 06/23/23 Amlodipine [Norvasc*] 10 mg PO DAILY 06/24/23 chlordiazePOXIDE HCl [Librium*] See Rx Instructions .ROUTE .COMPLEX #6 cap 06/26/23 predniSONE [Prednisone] 20 mg PO BID 5 Days #10 tab 06/26/23 New Medications: chlordiazePOXIDE HCl [Librium*] See Rx Instructions .ROUTE .COMPLEX #6 cap predniSONE [Prednisone] 20 mg PO BID 5 Days #10 tab Physician Discharge Instructions: 1. Please follow-up with your PCP (Dr. Michaels) as soon as possible 2. Please follow-up with Pulmonology (Dr. Martinez) as soon as possible Diet: Regular Activity: Fall precautions Followup: Mayur Martinez MD [ACTIVE - CAN ADMIT] - Xenia AUSTIN,Adrianna Gamez DO [Primary Care Provider] - Time spent managing pt's care (in minutes): 25
[2023-06-26 11:25] VITALS: O2SAT 100
== END 2023-06-26 09:20 | disposition left against medical advice (07) | DRG 191 ==
LOC: ER 10:11 → ERHOLD 13:08 → 3RD-ICU 15:59
PROVIDERS: ADMIT Internal Medicine; ATTEND Internal Medicine
DX: J44.1 Chronic obstructive pulmonary disease with (acute) exacerbation (principal); F10.239 Alcohol dependence with withdrawal, unspecified; R65.10 Systemic inflammatory response syndrome (SIRS) of non-infectious origin without acute organ dysfunction; I10 Essential (primary) hypertension; F41.9 Anxiety disorder, unspecified; K21.9 Gastro-esophageal reflux disease without esophagitis; F17.210 Nicotine dependence, cigarettes, uncomplicated; R19.7 Diarrhea, unspecified; Z88.8 Allergy status to other drugs, medicaments and biological substances; Z53.29 Procedure and treatment not carried out because of patient's decision for other reasons; Z79.52 Long term (current) use of systemic steroids; Z71.41 Alcohol abuse counseling and surveillance of alcoholic; Z79.899 Other long term (current) drug therapy; Z89.022 Acquired absence of left finger(s); Z20.822 Contact with and (suspected) exposure to COVID-19
CPT/HCPCS: 36415; 71045; 71275; 74175; 80048; 80061; 80076; 80143; 80179; 81001; 83735; 83880; 84100; 84132; 84484; 85025; 85610; 87804; 87811; 93005; 96374; 96375; 99285; J1650; J2270; J2930; J3360; J3411; J7030; J7512; J7613; J7614; J7644; Q9967

== ENCOUNTER 2023-06-27 23:57 | Emergency (ER) | payer OTHER ==
--- OUTSIDE RECORDS SUMMARY | 2023-06-28 00:01 | XMS REPORT | Continuity of Care Document ---
:1970 Author Organization [facility] t Address [address] 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 CELEBRITY ACQUISTION 94 ON Problems Condition Condition Condition Status Onset Resolution Last Treating Co mments Source Name Details Category Date Date Treatment Clinician Date Acute Acute Disease Active Univers exacerbati exacerbati 5-16 it y of on of on of 00:00: [place] chronic chronic 00 Medical obstructiv obstructiv Br anch e e pulmonary pulmonary disease disease (COPD) (COPD) Obesity Obesity Disease Active Univers (BMI (BMI 5-16 ity of 30-39.9) 30-39.9) 00:00: [address] Allergies, Adverse Reactions, Alerts Allergy Allergy Status Severity Reaction(s) Onset Inactive Treating Comm ents Source Name Type Date Date Clinician Lisinopr Propensi Active Anaphylaxis U nivers il ty to 5-16 ity of adverse 00:00: [place] reaction 00 [facility] [place] LISINOPR DRUG Active Anaphylaxis 2017- Uni vers IL INGREDI 5-16 ity of 00:00: [place] 00 Medical Branch Social History Social Habit Start Date Stop Date Quantity Comments Source History of Smokes tobacco University of tobacco use daily [facility] Exposure to 2022-10-04 2022-10-14 Not sure [facility] SARS-CoV-2 00:00:00 10:25:00 [facility] (event) [place] Alcohol intake 2022-03-09 2022-03-09 4.29 /d University of 00:00:00 00:00:00 [facility] Tobacco use and 2018-03-24 2018-03-24 User of smokeless Un iversity of exposure 00:00:00 00:00:00 tobacco [facility] Tobacco Comment 2018-03-24 2018-03-24 trying to quit Unive rsity of 00:00:00 00:00:00 [facility] Sex [birth year] At [birth year] Universit y of 00:00:00 00:00:00 [facility] Smoking Status Start Date Stop Date Source Smokes tobacco daily 2018-03-24 00:00:00 Univers ity of [facility] Medications Ordered Filled Start Stop Current Ordering Indication Dosage Frequency Signature Comments Components Source Medication Medication Date Date Medication? Clinician (SIG) Name Name iopamidol 2021-11- No [id number] 70mL 70 mL, U nivers (ISOVUE 2-06 12-06 Intravenou ity o f 370-500 mL) 18:30: 18:30 s, ONCE, 1 [place] injection 00 :00 dose, On Medica l 70 mL e Branch 10/14/22 at 1230, Routine methylpredn 2021-11 Yes 125mg 125 mg, Un odalys isolone sod 2-06 Intravenou it y of succ 18:00: s, Q6H, [place] (SOLU-MEDRO 00 First dose Me dical L) [...] 10/14/22 at 1045, Routine levoFLOXaci 2021-11 Yes [id number] 750mg Take 1 Univers n 750 mg [...] of succ 11:45: 10:43 s, ONCE, 1 [place] (SOLU-MEDRO 00 :00 dose, On Medi keo [...] 0530, solution 3 Routine mL albuterol Yes [id number] 2{puff} Inhale 2 Univers 90 02-20 Puffs ity of mcg/actuati 00:00: every 4 [place] as on inhaler 00 (four) Medical hours as Branch needed for Wheezing or Shortness of Breath. albuterol Yes [id number] 2.5mg Inhale 3 Univers 2.5 mg /3 4-14 mL every 4 ity of mL (0.083 00:00: (four) [place] %) 00 hours. May Medical nebulizer also Branch solution nebulize one extra every 6 hours. budesonide- Yes [id number] 2{puff} Inhale 2 Univers formoteroL 4-14 Puffs 2 ity of 160-4.5 00:00: (two) [place] mcg/actuati 00 times Medical on inhaler daily. Branch triamterene Yes [id number] 1{tbl} Take 1 Univers -hydrochlor 4-14 tablet by ity of othiazid 00:00: mouth [place] 37.5-25 mg 00 daily. Medical tablet Branch chlordiazeP 0 Yes [id number] 25mg Take 1 Univers OXIDE 25 mg 4-14 capsule by it y of capsule 00:00: mouth [place] 00 every 6 Medical (six) Branch hours as needed for Anxiety, Agitation, Heart Rate => 100 or Detox. predniSONE 0 Yes [id number] TAKE ONE Univers 10 mg 4-14 TABLET BY ity of tablet 00:00: MOUTH [place] 00 DAILY Medical Branch albuterol 0 Yes [id number] 2{puff} Inhale 2 Univers 90 4-14 Puffs ity of mcg/actuati 00:00: every 4 [place] as on inhaler 00 (four) Medical hours as Branch needed for Wheezing or Shortness of Breath. albuterol 0 Yes [id number] 2.5mg Inhale 3 Univers 2.5 mg /3 4-14 mL every 4 ity of mL (0.083 00:00: (four) [place] %) 00 hours. May Medical nebulizer also Branch solution nebulize one extra every 6 hours. budesonide- 2021- Yes [id number] 2{puff} Inhale 2 Univers formoteroL 4-14 Puffs 2 ity of 160-4.5 00:00: (two) [place] mcg/actuati 00 times Medical on inhaler daily. Branch triamterene 0 Yes [id number] 1{tbl} Take 1 Univers -hydrochlor 4-14 tablet by ity of othiazid 00:00: mouth [place] 37.5-25 mg 00 daily. Medical tablet Branch chlordiazeP Yes [id number] 25mg Take 1 Univers OXIDE 25 mg 4-14 capsule by it y of capsule 00:00: mouth [place] 00 every 6 Medical (six) Branch hours as needed for Anxiety, Agitation, Heart Rate => 100 or Detox. predniSONE Yes [id number] TAKE ONE Univers 10 mg 4-14 TABLET BY ity of tablet 00:00: MOUTH [place] 00 DAILY Medical Branch albuterol Yes [id number] 2{puff} Inhale 2 Univers 90 4-14 Puffs ity of mcg/actuati 00:00: every 4 [place] on inhaler 00 (four) Medical hours as Branch needed for Wheezing or Shortness of Breath. albuterol Yes [id number] 2.5mg Inhale 3 Univers 2.5 mg /3 4-14 mL every 4 ity of mL (0.083 00:00: (four) [place] %) 00 hours. May Medical nebulizer also Branch solution nebulize one extra every 6 hours. budesonide- Yes [id number] 2{puff} Inhale 2 Univers formoteroL 4-14 Puffs 2 ity of 160-4.5 00:00: (two) [place] mcg/actuati 00 times Medical on inhaler daily. Branch triamterene Yes [id number] 1{tbl} Take 1 Univers -hydrochlor 4-14 tablet by ity of othiazid 00:00: mouth [place] 37.5-25 mg 00 daily. Medical tablet Branch chlordiazeP Yes [id number] 25mg Take 1 Univers OXIDE 25 mg 4-14 capsule by it y of capsule 00:00: mouth [place] 00 every 6 Medical (six) Branch hours as needed for Anxiety, Agitation, Heart Rate => 100 or Detox. predniSONE Yes [id number] TAKE ONE Univers 10 mg 4-14 TABLET [...] by mouth ity of tablet 16:32: at [place] [address] bedtime. Medical Branch gabapentin 2018-0 Yes 100mg Take 100 Un odalys 100 mg 5-18 mg by ity of capsule 16:32: mouth 2 [place] [address] (two) Medical times Branch daily as needed ([facility] pain). foLIC acid 2018-0 Yes 1mg Take 1 mg Un odalys 1 mg tablet 5-18 by mouth ity of 16:32: daily. [address] triamterene 2018-0 Yes 1{capsu Take 1 U nivers -hydrochlor 5-18 le} capsule by it y of othiazide 16:32: mouth [place] 37.5-25 mg 14 every Medical per capsule morning. Bran ch amLODIPine 2018-0 Yes 10mg Take 10 mg U nivers 10 mg 5-18 by mouth ity of tablet 16:32: at [place] [address] bedtime. Medical Branch gabapentin 2018-0 Yes 100mg Take 100 Un odalys 100 mg 5-18 mg by ity of capsule 16:32: mouth 2 [place] [address] (two) Medical times [place] daily as needed ([facility] pain). foLIC acid 2018-0 Yes 1mg Take 1 mg Un odalys 1 mg tablet 5-18 by mouth ity of 16:32: daily. [address] triamterene 2018-0 Yes 1{capsu Take 1 U nivers -hydrochlor 5-18 le} capsule by it y of othiazide 16:32: mouth [place] 37.5-25 mg 14 every Medical per capsule morning. Bran ch amLODIPine 2018-0 Yes 10mg Take 10 mg U nivers 10 mg 5-18 by mouth ity of tablet 16:32: at [place] [address] bedtime. Medical Branch gabapentin 2018-0 Yes 100mg Take 100 Un odalys 100 mg 5-18 mg by ity of capsule 16:32: mouth 2 [place] [address] (two) Medical times Branch daily as needed ([facility] pain). foLIC acid 2018-0 Yes 1mg Take 1 mg Un odalys 1 mg tablet 5-18 by mouth ity of 16:32: daily. [address] budesonide- 2018-0 Yes 2{puff} Inhale 2 [...] Immunizations Ordered Filled Immunization Date Status Comments [facility] e Immunization Name Name SARS-COV-2 COVID-19 2021-02-03 Completed Unive rsity of PFIZER VACCINE 00:00:00 [facility] SARS-COV-2 COVID-19 2021-02-03 Completed Unive rsity of PFIZER VACCINE 00:00:00 [facility] SARS-COV-2 COVID-19 2021-02-03 Completed Unive rsity of PFIZER VACCINE 00:00:00 [facility] SARS-COV-2 COVID-19 2021-01-13 Completed Unive rsity of PFIZER VACCINE 00:00:00 [facility] SARS-COV-2 COVID-19 2021-01-13 Completed Unive rsity of PFIZER VACCINE 00:00:00 [facility] SARS-COV-2 COVID-19 2021-01-13 Completed Unive rsity of PFIZER VACCINE 00:00:00 [facility] Pneumococcal 2018-03-26 Completed University o f Polysaccharide, 00:00:00 [place] Med ical PPSV23 (PNEUMOVAX) Branch Influenza Virus 2018-03-26 Completed Universit y of Vaccine Quad IM 3+ 00:00:00 [facility] Pneumococcal 2018-03-26 Completed University o f Polysaccharide, 00:00:00 [place] Med ical PPSV23 (PNEUMOVAX) Branch Influenza Virus 2018-03-26 Completed Universit y of Vaccine Quad IM 3+ 00:00:00 [facility] Pneumococcal 2018-03-26 Completed University o f Polysaccharide, 00:00:00 [place] Med ical PPSV23 (PNEUMOVAX) [place] Influenza Virus 2018-03-26 Completed Universit y of Vaccine Quad IM 3+ 00:00:00 [facility] Branch Vital Signs Vital Name Observation Time Observation Value Comments Source Systolic blood 2022-10-14 19:43:00 111 mm[Hg] Univer sity of pressure [place] [facility] Diastolic blood 2022-10-14 19:43:00 74 mm[Hg] Unive rsity of pressure [facility] Branch Heart rate 2022-10-14 19:43:00 98 /min Universi ty of [place] [facility] Body temperature 2022-10-14 19:43:00 36.39 Debbie Univ ersity of [place] [facility] Respiratory rate 2022-10-14 19:43:00 22 /min Univ ersity of [place] [facility] Oxygen saturation in 2022-10-14 19:43:00 94 /min University of Arterial blood by [place] [employer] keo Pulse oximetry Branch Body height 2022-10-14 16:13:00 162.6 cm Universi ty of [place] [facility] Body weight 2022-10-14 16:13:00 81.647 kg Universi ty of [place] [facility] BMI 2022-10-14 16:13:00 30.90 kg/m2 Universi ty of [place] [facility] Systolic blood 2022-03-12 10:13:00 119 mm[Hg] Univer sity of pressure [place] [facility] Diastolic blood 2022-03-12 10:13:00 75 mm[Hg] Unive rsity of pressure [place] [facility] Heart rate 2022-03-12 10:13:00 105 /min Universi ty of [place] [facility] Body temperature 2022-03-12 10:13:00 37.28 Debbie Univ ersity of [place] [facility] Respiratory rate 2022-03-12 10:13:00 19 /min Univ ersity of [place] [facility] Body height 2022-03-12 10:13:00 162.6 cm Universi ty of [place] [facility] Body weight 2022-03-12 10:13:00 99.791 kg Universi ty of [place] [facility] BMI 2022-03-12 10:13:00 37.76 kg/m2 Universi ty of [place] [facility] Oxygen saturation in 2022-03-12 10:13:00 96 /min University of Arterial blood by [place] [employer] keo Pulse oximetry Branch Systolic blood 2022-02-20 11:57:00 155 mm[Hg] Univer sity of pressure [facility] Diastolic blood 2022-02-20 11:57:00 88 mm[Hg] [facility] Heart rate 2022-02-20 11:57:00 105 /min [facility] Respiratory rate 2022-02-20 11:57:00 18 /min [facility] Oxygen saturation in 2022-02-20 11:57:00 100 /min [facility] Arterial blood by [facility] Pulse oximetry Branch Body temperature 2022-02-20 09:25:00 37 Debbie [facility] Body height 2022-02-20 09:25:00 162.6 cm [facility] Body weight 2022-02-20 09:25:00 96.163 kg [facility] BMI 2022-02-20 09:25:00 36.39 kg/m2 [facility] Procedures Procedure Date / Time Performing Clinician Source Performed CT ABDOMEN PELVIS W 2022-10-14 17:33:00 Melinda Maciel [facility] CONTRAST [facility] XR CHEST 1 VW 2022-10-14 17:10:37 Singer [facility] [place] [facility] TROPONIN I 2022-10-14 16:37:00 Singer [facility] [place] [facility] COMP. METABOLIC PANEL 2022-10-14 16:37:00 Melinda Maciel [facility] ([id number]) [facility] CBC WITH DIFF 2022-10-14 16:37:00 Singer [facility] [place] [facility] PROTHROMBIN TIME / INR 2022-10-14 16:37:00 Melinda Maciel [facility] URINALYSIS 2022-10-14 16:37:00 Singer [facility] [place] [facility] N-TERMINAL PRO-BNP 2022-10-14 16:37:00 Melinda Maciel [facility] CONSENT/REFUSAL FOR 2022-10-14 15:56:36 Doctor Unassigned, No Un iversity of [place] DIAGNOSIS AND TREATMENT Name Medical Branch CONSENT/REFUSAL FOR 2022-03-12 10:03:12 [facility] Medical Branch XR CHEST 1 VW 2022-02-20 09:59:00 Christy Holliday [facility] LIPASE 2022-02-20 09:30:00 Christy Holliday [facility] TROPONIN I 2022-02-20 09:30:00 Christy Holliday [facility] COMP. METABOLIC PANEL 2022-02-20 09:30:00 Christy Holliday [facility] ([id number]) [facility] CBC WITH DIFF 2022-02-20 09:30:00 Christy Holliday [facility] N-TERMINAL PRO-BNP 2022-02-20 09:30:00 Christy Holliday [facility] NOTICE OF PRIVACY 2022-02-20 09:15:02 Doctor Unassigned, No Univ [facility] PRACTICES Name [facility] CONSENT/REFUSAL FOR 2022-02-20 09:14:47 Doctor Unassigned, No [facility] DIAGNOSIS AND TREATMENT Name [facility] Encounters Start End Encounter Admission Attending Care Care Encounter Source Date/Time Date/Time Type Type Clinicians Facility Department ID 2023-06-16 2023-06-16 Outpatient PREZASMARIA ELENA [id number] Maria Elena 11:30:00 11:30:00 DARIEN brunson 2023-05-18 2023-05-18 Outpatient GROUP, MARIA ELENA BECERRA [id number] Maria Elena 00:00:00 00:00:00 MARIA ELENA brunson 2022-10-14 2022-10-14 Emergency X SINGER [facility] ERT [id number] Univers 10:07:00 14:39:00 MELINDA garcia [facility] 2022-10-14 2022-10-14 Emergency Singer [facility] [id number] Univers 10:07:00 14:39:00 Melinda SMITH [id number] [facility] [id number] [facility] [id number] [facility] 084 Branch 2022-03-12 2022-03-12 Emergency X COLIN [facility] ERT [id number] Univers 05:15:00 06:41:00 CHRISTY [facility] 2022-03-12 2022-03-12 Emergency [facility] [id number] Univers 05:15:00 06:41:00 [id number] [facility] [id number] [address] 2022-02-20 2022-02-20 Emergency X [facility] ERT [id number] Univers 04:17:00 07:16[facility] 2022-[facility]-20 2022-02-20 Emergency [facility] [id number] Univers 04:17:00 07:16:00 Nyamber Whitney [facility] [id number] [facility] [id number] [facility] [id number] [address] 2021-02-03 2021-02-03 Outpatient R PINEDA, [facility] [id number] Univers 11:10:00 11:10:00 DENISE [facility] 2021-01-13 2021-01-[address] [facility] [id number] Univers 11:20:00 11:20:00 [facility] 2020-11-10 2020-11-10 [facility] [id number] Univers 08:20:00 08:20:00 KARLEY [facility] Results Test Description Test Time Test Comments Results Result Comments Source TROPONIN I 2022-02-20 10:16:22 Test Item Value Reference Range Interpretation Comme nts TROPONIN I (test code = 0.007 ng/mL See_Comment [Au tomated message] The 7085620990) system which ge nerated this result tra [...] biotin. Lab Interpretation Normal (test code = 34807-5) [facility] [id number] 10:13:01 Test Item Value Reference Range Interpretation Comments NT-proBNP (test code 52 pg/mL See_Comment [Autom ated = 5947969025) message] The system which generated this result transmitted reference range : <=125. The reference range was not used to interpret this result as normal/abnormal . LOUISE (test code = LOUISE) Biotin has been reported to cause a negative bias, interpret results relative to patient's use of biotin. Lab Interpretation Normal (test code = 93267-4) [facility] (03003)2022-02-20 10:04:02 Test Item Value Reference Range Interpretation Comments NA (test code = 137 mmol/L 135-145 6908416660) K (test code = 3.6 mmol/L 3.5-5.0 4758934891) CL (test code = 99 mmol/L 98-108 0070910087) CO2 TOTAL (test code = 25 mmol/L 23-31 1242986121) AGAP (test code = 2-16 3264988319) BUN (test code = 6 mg/dL 7-23 L 1924166650) GLUCOSE (test code = 88 mg/dL 70-110 1674781917) CREATININE (test code = 0.55 mg/dL 0.60-1.25 L 0208600474) TOTAL BILI (test code = 0.8 mg/dL 0.1-1.4 8208668201) CALCIUM (test code = 8.9 mg/dL 8.6-10.6 7308431104) T PROTEIN (test code = 7.5 g/dL 6.3-8.2 1674246675) ALBUMIN (test code = 4.8 g/dL 3.5-5.0 5739120919) ALK PHOS (test code = 113 U/L 34-122 2961445533) ALTv (test code = 84 U/L 5-50 H 2-6) AST(SGOT) (test code = 107 U/L 13-40 H 4558805866) eGFR (test code = mL/min/1.73m2 0208795020) LOUISE (test code = LOUISE) Association of [...] tests). Lab Interpretation Abnormal (test code = 36557-4) [facility] [id number] 10:03:21 Test Item Value Reference Range Interpretation Comments LIPASE (test code = 4191896948) 193 U/L 0-220 Lab Interpretation (test code = Normal 58248-6) [facility] WITH [id number] 09:39:17 Test Item Value Reference Range Interpretation Comments WBC (test code = See_Comment [Automated 5290-2) message] The sy stem which generated this [...] RDW-SD (test code = 44.4 fL 38.5-51.6 95119-4) RDW-CV (test code = 11.9 % 12.1-15.4 L 788-0) PLT (test code = See_Comment [Automated 777-3) message] The sy stem which generated this result transmitted reference range : 150 - 328 10*3/ ?L. The reference r ernie was not used to interpret this result as normal/abnormal . MPV (test code = 9.2 fL 9.8-13.0 L 07123-9) NRBC/100 WBC (test See_Comment [Automat ed code = 6016849489) message] The system which generated this result transmitted reference range : 0.0 - 10.0 /100 WBCs. The refer ence range was not u sed to interpret th is result as normal/abnormal . NRBC x10^3 (test code <0.01 See_Comment [Auto mated = 8920681983) message] The s ystem which generated this result transmitted reference range : 10*3/?L. The reference range was not used to interpret this result as normal/abnormal . GRAN MAT (NEUT) % 69.9 % (test code = 770-8) IMM GRAN % (test code 1.50 % = 5628396995) LYMPH % (test code = 18.9 % 736-9) MONO % (test code = 7.0 % 5905-5) EOS % (test code = 1.9 % 713-8) BASO % (test code = 0.8 % 706-2) GRAN MAT x10^3(ANC) 7.15 10*3/uL 1.99-6.95 H (test code = 2298480098) IMM GRAN x10^3 (test 0.15 10*3/uL 0.00-0.06 H code = 3606963648) LYMPH x10^3 (test code 1.93 10*3/uL 1.09-3.23 = 731-0) MONO x10^3 (test code 0.72 10*3/uL 0.36-1.02 = 742-7) EOS x10^3 (test code = 0.19 10*3/uL 0.06-0.53 711-2) BASO x10^3 (test code 0.08 10*3/uL 0.01-0.09 = 704-7) Lab Interpretation Abnormal (test code = 57986-3) [facility]"
[2023-06-28 00:29] LABS: Absolute Lymphocytes (CBC) 3.4 K/uL (0.7-4.9); Hematocrit 42.7 % (39.6-49.0); Lymphocytes % 29.4 % (15.3-44.8); MCV 101.8 fL (80-100); Platelets 205 thou/uL (152-406); RBC Red Blood Cell Count 4.19 M/uL (4.33-5.43)
[2023-06-28 00:45] LABS: Albumin 3.3 g/dL (3.4-5.0); Bilirubin Total 0.2 mg/dL (0.2-1.0); Magnesium 1.8 mg/dL (1.6-2.4); Potassium 3.8 mEq/L (3.5-5.1); Protein, Total 6.9 g/dL (6.4-8.2); Troponin High Sensitivity 5.7 pg/mL (<58.9)
[2023-06-28] MEDS ORDERED: DIAZEPAM 10 MG/2 ML INJ SYRINGE ONE (01:02)
--- NOTE | 2023-06-28 02:03 | ER ---
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 Coronavirus screen: At rv this time, the client does not indicate any symptoms associated with coronavirus-19. Ebola Screen: No symptoms or risks identified at this time. Initial Sepsis Screen: Does the patient meet any 2 criteria? No. Patient's initial sepsis screen is negative. Does the patient have a suspected source of infection? No. Patient's initial sepsis screen is negative. Risk Assessment: Do you want to hurt yourself or someone else? Patient reports no desire to harm self or others. Onset of symptoms was June 28, 2023. 00:02 Method Of Arrival: EMS: [facility] 00:02 Acuity: CANDACE 2 rv Triage Assessment: 00:06 General: Appears uncomfortable, ill, Behavior is calm, cooperative. Pain: Complains of rv pain in chest. Neuro: Level of Consciousness is awake, alert, obeys commands, Oriented to person, place, time, situation. Cardiovascular: Capillary refill < 3 seconds. Respiratory: Airway is patent Respiratory effort is labored. GI: No signs and/or symptoms were reported involving the gastrointestinal system. : No signs and/or symptoms were reported regarding the genitourinary system. Derm: Skin is intact. Historical: - Allergies: 00:05 Lisinopril; rv - PMHx: 00:05 Alcoholism; COPD; Hypertension; rv - PSHx: 00:05 Amputation of left index finger; rv - Immunization history:: Adult Immunizations up to date. - Social history:: Smoking status: Patient reports the use of cigarette tobacco products, smokes one pack cigarettes per day. Screenin:07 Clinical [place] Withdrawal Assessment for Alcohol, revised (CIWA-Ar): rv Nausea/Vomitin - Constant nausea, frequent dry heaves and vomiting. Headache: 5 - Severe Paroxysmal Sweats: 0 - No sweats visible Anxiety: 4 - Moderately anxious, guarded Agitation: 0 - Normal actiivty Tremor: 4 - Moderate when client's hands extended Auditory Disturbances: 0 - Not present Visual Disturbances: 0 - Not present Tactile Disturbances: 0 - None Orientation and Clouding of Sensorium: 0 - Oriented and can do serial additions Total Score: 16 to 20: Modest Withdrawal. 00:23 [facility] ED Fall Risk Assessment (Adult) History of falling in the last 3 months, rv including since admission No falls in past 3 months (0 pts) Confusion or Disorientation Yes (5 pts) Intoxicated or Sedated Yes (3 pts) Impaired Gait Yes (1 pt) Mobility Assist Device Used No (0 pt) Altered Elimination Yes (1 pt) Score/Fall Risk Level 3 or more points = High Risk Oriented to surroundings, Maintained a safe environment, Educated pt \T\ family on fall prevention, incl call for assistance when getting out of bed, Assessed \T\ reinforced patient's understanding of fall precautions, Provided non-skid footwear, Hourly rounding (assess needs \T\ fall precautionary measures) done, Used ambulatory aids as needed (educated on \T\ assisted with), Used gait belt as appropriate Implemented a Fall Risk Plan of Care, Apply high fall risk patient identification: yellow non skid footwear/ fall signage, Placed fall mat w/ non beveled edge next to bed, Activated bed/chair alarm, Remained w/in arm's length of patient and in sight while toileting, Offered frequent toileting (1:1 observation), Remained with patient while ambulating, Utilized family, sitter, or virtual mast maker as indicated. Abuse screen: Denies threats or abuse. Denies injuries from another. Nutritional screening: No deficits noted. Tuberculosis screening: No symptoms or risk factors identified. Assessment: 00:30 Reassessment: No changes from previously documented assessment. Patient and/or family rv updated on plan of care and expected duration. Pain level reassessed. 01:49 Reassessment: pt is not in the room. tried to locate the pt in the restroom, rv examination rooms, in the lobby and parking lot. unable to find pt at this time. Dr Lo is aware. Vital Signs: 00:02 BP 119 / 91; Pulse 99; Resp 25; Temp 98; Pulse Ox 97% on R/A; Weight 79.38 kg; Height 5 rv ft. 4 in. ; 00:30 BP 109 / 70; Pulse 93; Resp 19; Pulse Ox 96% on R/A; rv 00:02 Body Mass Index 30.04 (79.38 kg, 162.56 cm) rv Shani Coma Score: 00:30 Eye Response: spontaneous(4). Motor Response: obeys commands(6). Verbal Response: rv oriented(5). Total: 15. ED Course: 06/27 23:59 Patient arrived in ED. [email or web address] 06/28 00:01 Charlotte Lo MD is Attending Physician. sd2 00:02 Darrius Nayak RN is Primary Nurse. rv 00:05 Triage completed. rv 00:06 Arm band placed on right wrist. rv 00:23 Patient has correct armband on for positive identification. Placed in gown. Bed in low rv position. Call light in reach. Side rails up X2. Client placed on continuous cardiac and pulse oximetry monitoring. NIBP monitoring applied. monitor car operator on. 00:23 Provided Education on: ALCOHOL ABUSE. rv 00:23 No provider procedures requiring assistance completed. Maintain EMS IV. Dressing rv intact. Good blood return noted. Site clean \T\ dry. Gauge \T\ site: g18 LAC. 00:36 XRAY Chest (1 view) In Process Unspecified. EDMS 02:07 IV discontinued. rv Administered Medications: 00:54 Drug: Diazepam IVP 5 mg Route: IVP; Site: left antecubital; rv 02:07 Follow up: Response: No adverse reaction rv Medication: 00:24 VIS not applicable for this client. rv Outcome: 02:02 Discharge ordered by . sd2 02:06 Discharged to home ambulatory. rv 02:06 Condition: stable 02:06 Discharge instructions given to pt left before receiving discharge instructions 02:07 Patient left the ED. rv Signatures: Dispatcher [employer] EDMS Darrius Nayak RN RN rv Kaila Mckeon RN RN jwCharlotte Colin MD MD sd2
--- NOTE | 2023-06-28 02:03 | EDPHYS ---
Physician Documentation [facility] Name: Randy Briones Age: 53 yrs Sex: Male : 1970 Arrival Date: 06/27/2023 Time: 23:57 Bed 4 Private MD: ED Physician Charlotte Lo HPI: 06/28 00:04 This 53 yrs old Male presents to ER via Unassigned with complaints of chest pain. sd2 00:04 53 yo M presents via EMS with CC of L sided chest pain non-radiating that started sd2 earlier in the day yesterday. Denies fever. Endorses associated SOB and vomiting. Reports drank 24 beers tonight and is a daily drinker. . Historical: - Allergies: 00:05 Lisinopril; rv - PMHx: 00:05 Alcoholism; COPD; Hypertension; rv - PSHx: 00:05 Amputation of left index finger; rv - Immunization history:: Adult Immunizations up to date. - Social history:: Smoking status: Patient reports the use of cigarette tobacco products, smokes one pack cigarettes per day. ROS: 00:04 Constitutional: Negative for fever, chills, and weight loss, Eyes: Negative for injury, sd2 pain, redness, and discharge, Cardiovascular: Negative for chest pain, palpitations, and edema, Respiratory: Negative for shortness of breath, cough, wheezing. Abdomen/GI: Negative for abdominal pain, nausea, vomiting, diarrhea. Back: Negative for injury and pain, MS/Extremity: Negative for injury and deformity, Skin: Negative for injury, rash, and discoloration. Exam: 00:04 Constitutional: This is a well developed, well nourished patient who is awake, alert, sd2 and in no acute distress. Head/Face: Normocephalic, atraumatic. Eyes: EOMI, normal conjunctiva bilaterally Chest/axilla: Normal chest wall appearance and motion. Nontender with no deformity. Cardiovascular: Regular rate and rhythm with a normal S1 and S2. No gallops, murmurs, or rubs. 2+ distal pulses. Respiratory: Lungs have equal breath sounds bilaterally, clear to auscultation and percussion. No rales, rhonchi or wheezes noted. No increased work of breathing, no retractions or nasal flaring. Skin: Warm, dry with normal turgor. Normal color with no rashes, no lesions, and no evidence of cellulitis. MS/ Extremity: Pulses equal, no cyanosis. Neurovascular intact. Full, normal range of motion. Ambulatory without difficulty. 01:02 ECG was reviewed by the Attending Physician. NSR, rate 94, no STEMI criteria, sd2 incomplete RBBB present Vital Signs: 00:02 BP 119 / 91; Pulse 99; Resp 25; Temp 98; Pulse Ox 97% on R/A; Weight 79.38 kg; Height 5 rv ft. 4 in. ; 00:30 BP 109 / 70; Pulse 93; Resp 19; Pulse Ox 96% on R/A; rv 00:02 Body Mass Index 30.04 (79.38 kg, 162.56 cm) rv Shani Coma Score: 00:30 Eye Response: spontaneous(4). Motor Response: obeys commands(6). Verbal Response: rv oriented(5). Total: 15. MDM: 00:01 Patient medically screened. sd2 01:59 Differential Diagnosis withdrawal, substance abuse, COPD exacerbation, PNA, ACS among sd2 others. Data reviewed: vital signs, nurses notes, EMS record, lab test result(s), EKG, radiologic studies. Consideration of Admission/Observation Escalation of care including admission/observation considered. I considered the following discharge prescriptions or medication management in the emergency department Medications were administered in the Emergency Department. See MAR. Historians other than the Patient: EMS: provides initial report. Care significantly affected by the following chronic conditions: Hypertension, Chronic Obstructive Pulmonary Disease, Alcoholism. Care significantly affected by the following Social Determinants of Health: Misuse of alcohol and/or drugs. 02:00 ED course: Labs reviewed and grossly WNCL. Trop neg. EKG with no ischemic changes. sd2 Central congestion present on CXR. I went to go back and re-evaluate the patient and he was no longer in his room. He was unable to be found anywhere in our facility for over 30 minutes. The patient will be discharged from the system at this time. . 06/28 00:04 Order name: CBC with Diff; Complete Time: 00:48 sd2 08 00:04 Order name: CMP; Complete Time: 00:48 sd2 06/28 00:04 Order name: Magnesium; Complete Time: 00:48 sd2 06/28 00:04 Order name: Troponin High Sensitivity; Complete Time: 00:48 06/28 00:04 Order name: BNP; Complete Time: 00:48 06/28 00:04 Order name: XRAY Chest (1 view) 2 06/28 00:04 Order name: EKG - Nurse/Tech; Complete Time: 00:18 sd06/28 00:04 Order name: Misc. Order: Please calculate CIWA score and document; Complete Time: 00:18 sd2 Administered Medications: 00:54 Drug: Diazepam IVP 5 mg Route: IVP; Site: left antecubital; rv 02:07 Follow up: Response: No adverse reaction rv Disposition Summary: 06/28/23 02:02 Discharge Ordered Location: Home sd2 Problem: an ongoing problem sd2 Symptoms: are unchanged sd2 Condition: Stable sd2 Diagnosis - COPD/ Chronic obstructive pulmonary disease with (acute) exacerbation sd2 - Alcohol abuse sd2 - Patient's other noncompliance with medication regimen sd2 Followup: sd2 - With: Private Physician - When: 1 - 2 days - Reason: Recheck today's complaints, Continuance of care, Re-evaluation by your physician Discharge Instructions: - Discharge Summary Sheet sd2 - Chronic Obstructive Pulmonary Disease Exacerbation sd2 Forms: - Medication Reconciliation Form sd2 - Thank You Letter sd2 - Antibiotic Education sd2 - Prescription Opioid Use sd2 - Patient Portal Instructions sd2 - Leadership Thank You Letter sd2 Signatures: Dispatcher [employer] Darrius Wen RN RN rv Dunlop, Stephanie, MD MD sd2
[2023-06-28 02:14] VITALS: TEMP 98
[2023-06-28 02:16] VITALS: BP 109/70; O2SAT 96
--- NOTE | 2023-06-28 07:44 | RAD REPORT ---
EXAM DESCRIPTION: RAD - Chest Single View - 06/28/2023 12:34 am CLINICAL HISTORY: CHEST PAIN COMPARISON: Chest Single View dated 06/23/2023; Chest Single View dated 04/12/2023; Chest Single View d ated 04/04/2023; Chest Single View dated 02/10/2023 FINDINGS: Lines: None. Lungs: No evidence of edema or pneumonia. Pleural: No significant pleural effusions or pneumothorax. Cardiac: The heart size is within normal limits. Mediastinum: Within normal limits. Bones: No acute fractures. Other: None IMPRESSION: No acute cardiopulmonary disease.
--- NOTE | 2023-06-29 18:00 | EKG ---
Test Date: 2023-06-28 Test Time: 00:13:58 Bright Cutter: RV MEASUREMENT RESULTS: Intervals: Rate: 94 IN: 140 QRSD: 102 QT: 360 QTc: 450 [place]: P: 58 IN: 140 QRS: 84 T: 72 INTERPRETIVE STATEMENTS: Normal sinus rhythm Incomplete right bundle branch block Borderline ECG Compared to ECG 06/23/2023 11:17:33 Incomplete right bundle-branch block now present Sinus tachycardia no longer present ST (T wave) deviation no longer present Electronically Signed On 06-29-23 17:57:21 CDT by Rosalino Albert
== END 2023-06-28 02:07 | disposition home or self-care (01) ==
LOC: ER 23:57
DX: J44.1 Chronic obstructive pulmonary disease with (acute) exacerbation (principal); F10.229 Alcohol dependence with intoxication, unspecified; Z91.148 Patient's other noncompliance with medication regimen for other reason; I10 Essential (primary) hypertension; F17.210 Nicotine dependence, cigarettes, uncomplicated; Z88.8 Allergy status to other drugs, medicaments and biological substances
CPT/HCPCS: 93005; 85025; 36415; 83735; 84484; 80053; 83880; 71045; 96374; 99284; J3360

== ENCOUNTER 2023-07-13 13:53 | Inpatient (IN) | payer OTHER ==
--- OUTSIDE RECORDS SUMMARY | 2023-07-13 13:56 | XMS REPORT | Continuity of Care Document ---
:1970 Author Organization [facility] t Address [address] [facility] [place] [address] Care Team Providers Name Role Phone SANDRA LOPEZ Primary Care Physician Unavailable DARIEN LOBO Attending Clinician Unavailable MARIA ELENA CHAN MEDICAL Attending Clinician UnavailMELINDA Rojas Attending Clinician Unavailable Melinda Maicel DO Attending Clinician CHRISTY HOLLIDAY Attending Clinician Unavailable Christy Holliday MD Attending Clinician DENISE SUNG Attending Clinician Unavailable KARLEY ADAMS Attending Clinician Unavailable MELINDA MACIEL Admitting Clinician Unavailable CHRISTY HOLLIDAY Admitting Clinician Unavailable Payers Payer Name Policy Type Policy Number Effective Date Expiration Date Whitney hopemassiel [facility] 9 [id number] 2023 00:00:00 SILVER 2: BRANDON 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 94 ON Problems Condition Condition Condition Status Onset Resolution Last Treating Co mments Source Name Details Category Date Date Treatment Clinician Date Acute Acute Disease Active Univers exacerbati exacerbati 5-16 it y of on of on of 00:00: [place] chronic chronic 00 Medical obstructiv obstructiv Br anch e e pulmonary pulmonary disease disease (COPD) (COPD) Obesity Obesity Disease Active Univers (BMI (BMI 5-16 ity of 30-39.9) 30-39.9) 00:00: [address] Allergies, Adverse Reactions, Alerts Allergy Allergy Status Severity Reaction(s) Onset Inactive Treating Comm ents Source Name Type Date Date Clinician Lisinopr Propensi Active Anaphylaxis U nivers il ty to 5-16 ity of adverse 00:00: [place] reaction 00 [facility] s Loiza LISINOPR DRUG Active Anaphylaxis 2017- Uni vers IL INGREDI 5-16 ity of 00:00: [place] 00 Medical Branch Social History Social Habit Start Date Stop Date Quantity Comments Source History of Smokes tobacco University of tobacco use daily [facility] Exposure to 2022-10-04 2022-10-14 Not sure [facility] SARS-CoV-2 00:00:00 10:25:00 [facility] (event) Loiza Alcohol intake 2022-03-09 2022-03-09 4.29 /d University of 00:00:00 00:00:00 [facility] Tobacco use and 2018-03-24 2018-03-24 User of smokeless Un iversity of exposure 00:00:00 00:00:00 tobacco [facility] Tobacco Comment 2018-03-24 2018-03-24 trying to quit Unive rsity of 00:00:00 00:00:00 [facility] Sex [birth year] At [birth year] Universit y of 00:00:00 00:00:00 [facility] Smoking Status Start Date Stop Date Source Smokes tobacco daily 2018-03-24 00:00:00 Univers ity of [facility] Medications Ordered Filled Start Stop Current Ordering Indication Dosage Frequency Signature Comments Components Source Medication Medication Date Date Medication? Clinician (SIG) Name Name iopamidol 2021-11- No [id number] 70mL 70 mL, U nivers (ISOVUE 2-06 12-06 Intravenou ity o f 370-500 mL) 18:30: 18:30 s, ONCE, 1 [place] injection 00 :00 dose, On Medica l 70 mL e Branch 10/14/22 at 1230, Routine methylpredn 2021-11 Yes 125mg 125 mg, Un odalys isolone sod 2-06 Intravenou it y of succ 18:00: s, Q6H, [place] (SOLU-MEDRO 00 First dose Me dical L) [...] 10/14/22 at 1045, Routine levoFLOXaci 2021-11 Yes [id number] 750mg Take 1 Univers n 750 mg [...] succ 11:45: 10:43 s, ONCE, 1 [place] (SOLU-MEDRO 00 :00 dose, On Medi keo [...] 0530, solution 3 Routine mL albuterol Yes [id number] 2{puff} Inhale 2 Univers 90 02-20 Puffs ity of mcg/actuati 00:00: every 4 Saúl as on inhaler 00 (four) Medical hours as Branch needed for Wheezing or Shortness of Breath. albuterol Yes [id number] 2.5mg Inhale 3 Univers 2.5 mg /3 4-14 mL every 4 ity of mL (0.083 00:00: (four) [place] %) 00 hours. May Medical nebulizer also Branch solution nebulize one extra every 6 hours. budesonide- Yes [id number] 2{puff} Inhale 2 Univers formoteroL 4-14 Puffs 2 ity of 160-4.5 00:00: (two) [place] mcg/actuati 00 times Medical on inhaler daily. Branch triamterene Yes [id number] 1{tbl} Take 1 Univers -hydrochlor 4-14 tablet by ity of othiazid 00:00: mouth [place] 37.5-25 mg 00 daily. Medical tablet Branch chlordiazeP 0 Yes [id number] 25mg Take 1 Univers OXIDE 25 mg 4-14 capsule by it y of capsule 00:00: mouth [place] 00 every 6 Medical (six) Branch hours as needed for Anxiety, Agitation, Heart Rate => 100 or Detox. predniSONE 0 Yes [id number] TAKE ONE Univers 10 mg 4-14 TABLET BY ity of tablet 00:00: MOUTH [place] 00 DAILY Medical Branch albuterol 0 Yes [id number] 2{puff} Inhale 2 Univers 90 4-14 Puffs ity of mcg/actuati 00:00: every 4 Saú[place] as on inhaler 00 (four) Medical hours as Branch needed for Wheezing or Shortness of Breath. albuterol 0 Yes [id number] 2.5mg Inhale 3 Univers 2.5 mg /3 4-14 mL every 4 ity of mL (0.083 00:00: (four) [place] %) 00 hours. May Medical nebulizer also Branch solution nebulize one extra every 6 hours. budesonide- 2021- Yes [id number] 2{puff} Inhale 2 Univers formoteroL 4-14 Puffs 2 ity of 160-4.5 00:00: (two) [place] mcg/actuati 00 times Medical on inhaler daily. Branch triamterene 0 Yes [id number] 1{tbl} Take 1 Univers -hydrochlor 4-14 tablet by ity of othiazid 00:00: mouth [place] 37.5-25 mg 00 daily. Medical tablet Branch chlordiazeP Yes [id number] 25mg Take 1 Univers OXIDE 25 mg 4-14 capsule by it y of capsule 00:00: mouth [place] 00 every 6 Medical (six) Branch hours as needed for Anxiety, Agitation, Heart Rate => 100 or Detox. predniSONE Yes [id number] TAKE ONE Univers 10 mg 4-14 TABLET BY ity of tablet 00:00: MOUTH [place] 00 DAILY Medical Branch albuterol Yes [id number] 2{puff} Inhale 2 Univers 90 4-14 Puffs ity of mcg/actuati 00:00: every 4 Saú[place] as on inhaler 00 (four) Medical hours as Branch needed for Wheezing or Shortness of Breath. albuterol Yes [id number] 2.5mg Inhale 3 Univers 2.5 mg /3 4-14 mL every 4 ity of mL (0.083 00:00: (four) [place] %) 00 hours. May Medical nebulizer also Branch solution nebulize one extra every 6 hours. budesonide- Yes [id number] 2{puff} Inhale 2 Univers formoteroL 4-14 Puffs 2 ity of 160-4.5 00:00: (two) [place] mcg/actuati 00 times Medical on inhaler daily. Branch triamterene Yes [id number] 1{tbl} Take 1 Univers -hydrochlor 4-14 tablet by ity of othiazid 00:00: mouth [place] 37.5-25 mg 00 daily. Medical tablet Branch chlordiazeP Yes [id number] 25mg Take 1 Univers OXIDE 25 mg 4-14 capsule by it y of capsule 00:00: mouth [place] 00 every 6 Medical (six) Branch hours as needed for Anxiety, Agitation, Heart Rate => 100 or Detox. predniSONE Yes [id number] TAKE ONE Univers 10 mg 4-14 TABLET [...] by mouth ity of tablet 16:32: at [place] [address] bedtime. Medical Branch gabapentin 2018-0 Yes 100mg Take 100 Un odalys 100 mg 5-18 mg by ity of capsule 16:32: mouth 2 [place] [address] (two) Medical times Branch daily as needed ([facility] pain). foLIC acid 2018-0 Yes 1mg Take 1 mg Un odalys 1 mg tablet 5-18 by mouth ity of 16:32: daily. [address] triamterene 2018-0 Yes 1{capsu Take 1 U nivers -hydrochlor 5-18 le} capsule by it y of othiazide 16:32: mouth [place] 37.5-25 mg 14 every Medical per capsule morning. Bran ch amLODIPine 2018-0 Yes 10mg Take 10 mg U nivers 10 mg 5-18 by mouth ity of tablet 16:32: at [place] [address] bedtime. Medical Branch gabapentin 2018-0 Yes 100mg Take 100 Un odalys 100 mg 5-18 mg by ity of capsule 16:32: mouth 2 [place] [address] (two) Medical times [place]iza daily as needed ([facility] pain). foLIC acid 2018-0 Yes 1mg Take 1 mg Un odalys 1 mg tablet 5-18 by mouth ity of 16:32: daily. [address] triamterene 2018-0 Yes 1{capsu Take 1 U nivers -hydrochlor 5-18 le} capsule by it y of othiazide 16:32: mouth [place] 37.5-25 mg 14 every Medical per capsule morning. Bran ch amLODIPine 2018-0 Yes 10mg Take 10 mg U nivers 10 mg 5-18 by mouth ity of tablet 16:32: at [place] [address] bedtime. Medical Branch gabapentin 2018-0 Yes 100mg Take 100 Un odalys 100 mg 5-18 mg by ity of capsule 16:32: mouth 2 [place] [address] (two) Medical times Branch daily as needed ([facility] pain). foLIC acid 2018-0 Yes 1mg Take 1 mg Un odalys 1 mg tablet 5-18 by mouth ity of 16:32: daily. [address] budesonide- 2018-0 Yes 2{puff} Inhale 2 [...] Immunizations Ordered Filled Immunization Date Status Comments [facility] e Immunization Name Name SARS-COV-2 COVID-19 2021-02-03 Completed Unive rsity of PFIZER VACCINE 00:00:00 [facility] SARS-COV-2 COVID-19 2021-02-03 Completed Unive rsity of PFIZER VACCINE 00:00:00 [facility] SARS-COV-2 COVID-19 2021-02-03 Completed Unive rsity of PFIZER VACCINE 00:00:00 [facility] SARS-COV-2 COVID-19 2021-01-13 Completed Unive rsity of PFIZER VACCINE 00:00:00 [facility] SARS-COV-2 COVID-19 2021-01-13 Completed Unive rsity of PFIZER VACCINE 00:00:00 [facility] SARS-COV-2 COVID-19 2021-01-13 Completed Unive rsity of PFIZER VACCINE 00:00:00 [facility] Pneumococcal 2018-03-26 Completed University o f Polysaccharide, 00:00:00 [place] Med ical PPSV23 (PNEUMOVAX) Branch Influenza Virus 2018-03-26 Completed Universit y of Vaccine Quad IM 3+ 00:00:00 [facility] Pneumococcal 2018-03-26 Completed University o f Polysaccharide, 00:00:00 [place] Med ical PPSV23 (PNEUMOVAX) Branch Influenza Virus 2018-03-26 Completed Universit y of Vaccine Quad IM 3+ 00:00:00 [facility] Pneumococcal 2018-03-26 Completed University o f Polysaccharide, 00:00:00 [place] Med ical PPSV23 (PNEUMOVAX) Loiza Influenza Virus 2018-03-26 Completed Universit y of Vaccine Quad IM 3+ 00:00:00 [facility] Branch Vital Signs Vital Name Observation Time Observation Value Comments Source Systolic blood 2022-10-14 19:43:00 111 mm[Hg] Univer sity of pressure [place] [facility] Diastolic blood 2022-10-14 19:43:00 74 mm[Hg] Unive rsity of pressure [facility] Branch Heart rate 2022-10-14 19:43:00 98 /min Universi ty of [place] [facility] Body temperature 2022-10-14 19:43:00 36.39 Debbie Univ ersity of [place] [facility] Respiratory rate 2022-10-14 19:43:00 22 /min Univ ersity of [place] [facility] Oxygen saturation in 2022-10-14 19:43:00 94 /min University of Arterial blood by [place] [employer] keo Pulse oximetry Branch Body height 2022-10-14 16:13:00 162.6 cm Universi ty of [place] [facility] Body weight 2022-10-14 16:13:00 81.647 kg Universi ty of [place] [facility] BMI 2022-10-14 16:13:00 30.90 kg/m2 Universi ty of [place] [facility] Systolic blood 2022-03-12 10:13:00 119 mm[Hg] Univer sity of pressure [place] [facility] Diastolic blood 2022-03-12 10:13:00 75 mm[Hg] Unive rsity of pressure [place] [facility] Heart rate 2022-03-12 10:13:00 105 /min Universi ty of [place] [facility] Body temperature 2022-03-12 10:13:00 37.28 Debbie Univ ersity of [place] [facility] Respiratory rate 2022-03-12 10:13:00 19 /min Univ ersity of [place] [facility] Body height 2022-03-12 10:13:00 162.6 cm Universi ty of [place] [facility] Body weight 2022-03-12 10:13:00 99.791 kg Universi ty of [place] [facility] BMI 2022-03-12 10:13:00 37.76 kg/m2 Universi ty of [place] [facility] Oxygen saturation in 2022-03-12 10:13:00 96 /min University of Arterial blood by [place] [employer] keo Pulse oximetry Branch Systolic blood 2022-02-20 11:57:00 155 mm[Hg] Univer sity of pressure [facility] Diastolic blood 2022-02-20 11:57:00 88 mm[Hg] [facility] Heart rate 2022-02-20 11:57:00 105 /min [facility] Respiratory rate 2022-02-20 11:57:00 18 /min [facility] Oxygen saturation in 2022-02-20 11:57:00 100 /min [facility] Arterial blood by [facility] Pulse oximetry Branch Body temperature 2022-02-20 09:25:00 37 Debbie [facility] Body height 2022-02-20 09:25:00 162.6 cm [facility] Body weight 2022-02-20 09:25:00 96.163 kg [facility] BMI 2022-02-20 09:25:00 36.39 kg/m2 [facility] Procedures Procedure Date / Time Performing Clinician Source Performed CT ABDOMEN PELVIS W 2022-10-14 17:33:00 Melinda Maciel [facility] CONTRAST [facility] XR CHEST 1 VW 2022-10-14 17:10:37 Singer [facility] TROPONIN I 2022-10-14 16:37:00 Singer [facility] COMP. METABOLIC PANEL 2022-10-14 16:37:00 Melinda Maciel [facility] ([id number]) [facility] CBC WITH DIFF 2022-10-14 16:37:00 Singer [facility] PROTHROMBIN TIME / INR 2022-10-14 16:37:00 Melinda Maciel [facility] URINALYSIS 2022-10-14 16:37:00 Singer [facility] N-TERMINAL PRO-BNP 2022-10-14 16:37:00 Melinda Maciel [facility] CONSENT/REFUSAL FOR 2022-10-14 15:56:36 Doctor Unassigned, No Un iversity of [place] DIAGNOSIS AND TREATMENT Name Medical Branch CONSENT/REFUSAL FOR 2022-03-12 10:03:12 [facility]igned, No [facility] Medical Branch XR CHEST 1 VW 2022-02-20 09:59:00 Christy Holliday [facility] LIPASE 2022-02-20 09:30:00 Christy Holliday [facility] TROPONIN I 2022-02-20 09:30:00 Christy Holliday [facility] COMP. METABOLIC PANEL 2022-02-20 09:30:00 Christy Holliday [facility] ([id number]) [facility] CBC WITH DIFF 2022-02-20 09:30:00 Christy Holliday [facility] N-TERMINAL PRO-BNP 2022-02-20 09:30:00 Christy Holliday [facility] NOTICE OF PRIVACY 2022-02-20 09:15:02 Doctor Unassigned, No Univ [facility] PRACTICES Name [facility] CONSENT/REFUSAL FOR 2022-02-20 09:14:47 Doctor Unassigned, No [facility] DIAGNOSIS AND TREATMENT Name [facility] Encounters Start End Encounter Admission Attending Care Care Encounter Source Date/Time Date/Time Type Type Clinicians Facility Department ID 2023-06-16 2023-06-16 Outpatient PREZASMARIA ELENA [id number] Maria Elena 11:30:00 11:30:00 DARIEN brunson 2023-05-18 2023-05-18 Outpatient GROUP, MARIA ELENA BECERRA [id number] Maria Elena 00:00:00 00:00:00 MARIA ELENA brunson 2022-10-14 2022-10-14 Emergency X [facility]ER [facility] ERT [id number] Univers 10:07:00 14:39:00 MELINDA garcia [facility] 2022-10-14 2022-10-14 Emergency Singer [facility] [id number] Univers 10:07:00 14:39:00 Melinda SMITH [id number] [facility] [id number] [facility] [id number] [facility] 084 Branch 2022-03-12 2022-03-12 Emergency X COLIN [facility] ERT [id number] Univers 05:15:00 06:41:00 CHRISTY [facility] 2022-03-12 2022-03-12 Emergency [facility] [id number] Univers 05:15:00 06:41:00 [id number] [facility] [id number] [address] 2022-02-20 2022-02-20 Emergency X [facility] ERT [id number] Univers 04:17:00 07:16:00 [facility] 2022-02-20 2022-02-20 Emergency [facility] [id number] Univers 04:17:00 07:16:00 Njamber Whitney [facility] [id number] ity [facility] [id number] [facility] [id number] [address] 2021-02-03 2021-02-03 Outpatient R PINEDA, [facility] [id number] Univers 11:10:00 11:10:00 DENISE [facility] 2021-01-13 2021-01-13 Outpatient [facility] [id number] Univers 11:20:00 11:20:00 [facility] 2020-11-10 2020-11-10 [facility] [id number] Univers 08:20:00 08:20:00 KARLEY [facility] Results Test Description Test Time Test Comments Results Result Comments Source TROPONIN I 2022-02-20 10:16:22 Test Item Value Reference Range Interpretation Comme nts TROPONIN I (test code = 0.007 ng/mL See_Comment [Au tomated message] The [id number]) system which ge nerated this result tra [...] biotin. Lab Interpretation Normal (test code = 22399-1) [facility] [id number] 10:13:01 Test Item Value Reference Range Interpretation Comments NT-proBNP (test code 52 pg/mL See_Comment [Autom ated = 0147948669) message] The system which generated this result transmitted reference range : <=125. The reference range was not used to interpret this result as normal/abnormal . LOUISE (test code = LOUISE) Biotin has been reported to cause a negative bias, interpret results relative to patient's use of biotin. Lab Interpretation Normal (test code = 29387-9) [facility] ([id number])2022-02-20 10:04:02 Test Item Value Reference Range Interpretation Comments NA (test code = 137 mmol/L 135-145 3394803339) K (test code = 3.6 mmol/L 3.5-5.0 9470067478) CL (test code = 99 mmol/L 98-108 6115947211) CO2 TOTAL (test code = 25 mmol/L 23-31 6160659291) AGAP (test code = 2-16 3839301754) BUN (test code = 6 mg/dL 7-23 L 9953984668) GLUCOSE (test code = 88 mg/dL 70-110 4132847205) CREATININE (test code = 0.55 mg/dL 0.60-1.25 L 8058599223) TOTAL BILI (test code = 0.8 mg/dL 0.1-1.1 8888434176) CALCIUM (test code = 8.9 mg/dL 8.6-10.6 1159805013) T PROTEIN (test code = 7.5 g/dL 6.3-8.2 1256418924) ALBUMIN (test code = 4.8 g/dL 3.5-5.0 6933786515) ALK PHOS (test code = 113 U/L 34-122 2226123612) ALTv (test code = 84 U/L 5-50 H 2-6) AST(SGOT) (test code = 107 U/L 13-40 H 9099679587) eGFR (test code = mL/min/1.73m2 7637402549) LOUISE (test code = LOUISE) Association of [...] tests). Lab Interpretation Abnormal (test code = 73035-5) [facility] [id number] 10:03:21 Test Item Value Reference Range Interpretation Comments LIPASE (test code = 0622123023) 193 U/L 0-220 Lab Interpretation (test code = Normal 64198-9) [facility] [id number] 09:39:17 Test Item Value Reference Range Interpretation Comments WBC (test code = See_Comment [Automated 8290-2) message] The sy stem which generated this [...] RDW-SD (test code = 44.4 fL 38.5-51.6 96067-6) RDW-CV (test code = 11.9 % 12.1-15.4 L 788-0) PLT (test code = See_Comment [Automated 777-3) message] The sy stem which generated this result transmitted reference range : 150 - 328 10*3/ ?L. The reference r ernie was not used to interpret this result as normal/abnormal . MPV (test code = 9.2 fL 9.8-13.0 L 20708-7) NRBC/100 WBC (test See_Comment [Automat ed code = 9590810988) message] The system which generated this result transmitted reference range : 0.0 - 10.0 /100 WBCs. The refer ence range was not u sed to interpret th is result as normal/abnormal . NRBC x10^3 (test code <0.01 See_Comment [Auto mated = 6747449358) message] The s ystem which generated this result transmitted reference range : 10*3/?L. The reference range was not used to interpret this result as normal/abnormal . GRAN MAT (NEUT) % 69.9 % (test code = 770-8) IMM GRAN % (test code 1.50 % = 1951793862) LYMPH % (test code = 18.9 % 736-9) MONO % (test code = 7.0 % 5905-5) EOS % (test code = 1.9 % 713-8) BASO % (test code = 0.8 % 706-2) GRAN MAT x10^3(ANC) 7.15 10*3/uL 1.99-6.95 H (test code = 4030132522) IMM GRAN x10^3 (test 0.15 10*3/uL 0.00-0.06 H code = 8891295635) LYMPH x10^3 (test code 1.93 10*3/uL 1.09-3.23 = 731-0) MONO x10^3 (test code 0.72 10*3/uL 0.36-1.02 = 742-7) EOS x10^3 (test code = 0.19 10*3/uL 0.06-0.53 711-2) BASO x10^3 (test code 0.08 10*3/uL 0.01-0.09 = 704-7) Lab Interpretation Abnormal (test code = 39617-2) [facility]"
[2023-07-13] MEDS ORDERED: THIAMINE 200 MG/2 ML INJ ONE (14:43)
[2023-07-13] MEDS ORDERED: MORPHINE 4 MG/ML SYR ONE ×2 (14:43→17:00)
[2023-07-13] MEDS ORDERED: ONDANSETRON 4 MG/2 ML VIAL ONE ×2 (14:43→17:00)
[2023-07-13] MEDS ORDERED: METHYLPREDNISOLONE 125 MG INJ ONE (14:43)
[2023-07-13] MEDS ORDERED: ALBUTEROL 2.5 MG/3 ML NEB SOL ONE ×3 (14:43→20:08)
--- NOTE | 2023-07-13 14:46 | RAD REPORT ---
EXAM DESCRIPTION: CTChest Abd Pelvis Wo Con - 07/13/2023 2:23 pm CLINICAL HISTORY: FALL COMPARISON: Chest For Pe Angio dated 04/04/2023; Thorax Wo Con dated 11/24/2022; Chest For Pe Angio da sanjay 10/07/2021; Chest For Pe Angio dated 02/12/2019 TECHNIQUE: CT of the chest, abdomen, and pelvis was performed. All CT scans are performed using dose optimization technique as appropriate and may include automated exposure control or mA/KV adjustment according to patient size. FINDINGS: Thorax: Chest Wall: No abnormal mass Lungs: No acute abnormality. Pleura: No effusions or pneumothorax. Rhona/Mediastinum: No lymphadenopathy. Aorta/Pulmonary Arteries: Unremarkable Heart: Normal size. Abdomen/Pelvis: Liver: No acute abnormality or suspicious lesions. Biliary: No biliary ductal dilatation. Stomach: No significant focal abnormality. Duodenum: No significant focal abnormality. Pancreas: No significant abnormality. Spleen: No significant abnormality. Adrenal: No suspicious lesions. Kidney/ureter: No hydronephrosis. Nonobstructing 3 mm stone left kidney. Retroperitoneum: No retroperitoneal adenopathy. Vascular: No aneurysm. Bowel: No significant focal abnormality. Peritoneum: No ascites or free air. Bladder: Grossly unremarkable. Reproductive: No adnexal masses. Bones: No acute fracture. Other: n/a IMPRESSION: No evidence of significant trauma to the chest, abdomen, or pelvis.
[2023-07-13 15:15] LABS: Absolute Lymphocytes (CBC) 1.8 K/uL (0.7-4.9); Hematocrit 43.7 % (39.6-49.0); Lymphocytes % 13.5 % (15.3-44.8); MCV 103.8 fL (80-100); MPV 6.5 fL (7.6-11.3); Platelets 302 thou/uL (152-406); RBC Red Blood Cell Count 4.21 M/uL (4.33-5.43)
[2023-07-13 15:22] LABS: Protime INR 0.85
[2023-07-13 15:40] LABS: ALT/SGPT 15 U/L (16-61); AST/SGOT 8 U/L (15-37); Albumin 3.7 g/dL (3.4-5.0); Alkaline Phosphatase 52 U/L (45-117); BUN Blood Urea Nitrogen 6 mg/dL (7-18); Bicarbonate 23 mEq/L (21-32); Bilirubin Total 0.1 mg/dL (0.2-1.0); Creatine Phosphokinase 30 U/L (39-308); Glomerular Filtration Rate 113 ml/min (=/>90); Glucose Level 101 mg/dL (74-106); Lipase 278 U/L (13-75); NT PRO-BNP 57 pg/mL (<125); Potassium 4.6 mEq/L (3.5-5.1); Protein, Total 7.1 g/dL (6.4-8.2); Sodium Level 136 mEq/L (136-145); Troponin High Sensitivity 4.6 pg/mL (<58.9)
[2023-07-13 15:41] LABS: Bilirubin Direct < 0.1 mg/dL (0-0.2); Bilirubin Indirect, Calculated ND mg/dL (0.2-0.8)
[2023-07-13] MEDS ORDERED: IPRATROPIUM BROM 0.5MG/2.5ML ONE ×2 (16:18→20:09)
[2023-07-13 16:19] LABS: Arterial Blood Carboxyhemoglob 6.4 % (0-1.5); Blood Gas Oxyhemoglobin 84.5 % (94-97); Blood O2 Saturation 92.2 % (92-98.5)
--- NOTE | 2023-07-13 16:41 | ER ---
Nurse's Notes [facility] Name: Randy Briones Age: 53 yrs Sex: Male : 1970 Arrival Date: 07/13/2023 Time: 13:53 Bed 7 Private MD: Diagnosis: COPD/ Chronic obstructive pulmonary disease with (acute) exacerbation;Alcohol intoxication, acute fall, multiple skin tears, alcoholism, COPD exacerbation with hypoxemia and hypercarbia Presentation: 07/13 14:02 Chief complaint: EMS states: "toned out for falling after drinking 9 44oz beers. Pt mb9 states his left ribs, FA, and hand hurts". Coronavirus screen: Vaccine status: Patient reports receiving the 2nd dose of the covid vaccine. Ebola Screen: No symptoms or risks identified at this time. 14:02 Method Of Arrival: EMS: [facility] mb9 14:02 Initial Sepsis Screen: Does the patient meet any 2 criteria? No. Patient's initial mb9 sepsis screen is negative. Does the patient have a suspected source of infection? No. Patient's initial sepsis screen is negative. Risk Assessment: Do you want to hurt yourself or someone else? Patient reports no desire to harm self or others. Onset of symptoms was July 13, 2023. 14:02 Acuity: CANDACE 3 mb9 Triage Assessment: 14:13 General: Appears uncomfortable, Behavior is calm, cooperative. Pain: Complains of pain mb9 in left ribs, FA, and hand Pain radiates to left hand and left arm Pain currently is 10 out of 10 on a pain scale. Quality of pain is described as throbbing, Pain began suddenly, Is continuous. Neuro: Macario Agitation-Sedation Scale (RASS): 0 - Alert and Calm Level of Consciousness is awake, alert, obeys commands, Oriented to person, place, time, situation, Appropriate for age. Cardiovascular: Heart tones S1 S2 present Patient's skin is warm and dry. Respiratory: Airway is patent Respiratory effort is even, unlabored, Respiratory pattern is regular, symmetrical, Breath sounds are clear bilaterally. GI: Abdomen is round distended, Bowel sounds present X 4 quads. Abd is soft and non tender X 4 quads. : No signs and/or symptoms were reported regarding the genitourinary system. Derm: Skin is pink, warm \\T\\ dry. Musculoskeletal: Range of motion: intact in all extremities. Historical: - Allergies: 14:13 Lisinopril; mb9 - PMHx: 14:13 Alcoholism; COPD; Hypertension; mb9 - PSHx: 14:13 Amputation of left index finger; mb9 - Immunization history:: Adult Immunizations up to date. - Social history:: Smoking status: Patient reports the use of cigarette tobacco products, smokes two packs cigarettes per day. - Family history:: not pertinent. Screenin:09 [facility] ED Fall Risk Assessment (Adult) History of falling in the last 3 months, ld1 including since admission Yes- single mechanical fall (1 pt). Abuse screen: Denies threats or abuse. Denies injuries from another. Nutritional screening: No deficits noted. Nutritional screening: No deficits noted. Tuberculosis screening: No symptoms or risk factors identified. Assessment: 15:09 General: Appears in no apparent distress. uncomfortable, Behavior is calm, cooperative, ld1 appropriate for age. Pain: Complains of pain in left arm and left hand Pain does not radiate. Pain currently is 7 out of 10 on a pain scale. Quality of pain is described as throbbing. Neuro: Level of Consciousness is awake, alert, obeys commands, Oriented to person, place, time, situation. Cardiovascular: Capillary refill < 3 seconds Patient's skin is warm and dry. Rhythm is sinus rhythm. Respiratory: Airway is patent Respiratory effort is even, unlabored. GI: Abdomen is round non-distended. : No signs and/or symptoms were reported regarding the genitourinary system. EENT: No signs and/or symptoms were reported regarding the EENT system. Derm: No signs and/or symptoms reported regarding the dermatologic system. Musculoskeletal: No signs and/or symptoms reported regarding the musculoskeletal system. 16:21 Reassessment: No changes from previously documented assessment. Patient and/or family mb9 updated on plan of care and expected duration. Pain level reassessed. Patient is alert, oriented x 3, equal unlabored respirations, skin warm/dry/pink. 17:25 Reassessment: No changes from previously documented assessment. Patient and/or family mb9 updated on plan of care and expected duration. Pain level reassessed. Patient is alert, oriented x 3, equal unlabored respirations, skin warm/dry/pink. 18:25 Reassessment: No changes from previously documented assessment. Patient and/or family mb9 updated on plan of care and expected duration. Pain level reassessed. Patient is alert, oriented x 3, equal unlabored respirations, skin warm/dry/pink. 19:22 Reassessment: Pt attempted to leave the back door by the ambulance bay. Instructed he vc1 can't get out that door he stated he will just go out another. Instructed patient that he can not go outside to smoke, especially with an IV in his arm. Pt directed back to his room by another nurse. 19:26 Reassessment: Pt stated he did not want to stay here any longer. If he can't smoke vc1 he'll just go home. Vital Signs: 14:02 BP 127 / 89; Pulse 88; Resp 18; Temp 98.2; Pulse Ox 97% on 3 lpm NC; Weight 73.94 kg; mb9 Height 5 ft. 4 in. ; Pain 10/10; 15:09 BP 122 / 81; Pulse 92; Resp 18; Pulse Ox 94% on R/A; Pain 7/10; ld1 16:05 BP 128 / 64; Pulse 92; Resp 18; Pulse Ox 93% on R/A; ld1 17:03 BP 150 / 101; Pulse 100; Resp 18; Pulse Ox 100% on R/A; ld1 18:42 BP 101 / 87; Pulse 95; Resp 18; Pulse Ox 100% on R/A; mb9 19:24 BP 146 / 95; Pulse 109; Resp 14; Pulse Ox 97% ; vc1 14:02 Body Mass Index 27.98 (73.94 kg, 162.56 cm) mb9 14:02 Pain Scale: Adult mb9 15:09 Pain Scale: Adult ld1 ED Course: 13:58 Patient arrived in ED. mb9 14:02 Jose Crews MD is Attending Physician. sp4 14:12 Arm band placed on. mb9 14:24 Bianca Shi RN is Primary Nurse. mb9 14:25 Chest Abd Pelvis Wo Con In Process Unspecified. EDMS 14:25 Triage completed. mb9 14:25 Fall risk band placed. Placed in gown. Bed in low position. Call light in reach. Side mb9 rails up X 1. Client placed on continuous cardiac and pulse oximetry monitoring. NIBP monitoring applied. clinical research monitor on. 14:34 No provider procedures requiring assistance completed. mb9 15:09 Door closed. Noise minimized. Warm blanket given. ld1 15:09 Inserted saline lock: 20 gauge in right forearm, using aseptic technique. Blood ld1 collected. 15:13 EKG done, by ED staff, reviewed by Bianca Shi RN. mb9 16:39 Joselito Thibodeaux MD is Hospitalizing Provider. sp4 09 09:39 Notified Nurse Practitioner and/or Physician Photo Technician of Aerobic blood culture gram ll1 positive cocci in clusters. S. MARITZA Vasquez informed. Administered Medications: 07/13 14:24 Drug: Thiamine IV 100 mg Route: IV; Rate: bolus; Site: right forearm; mb9 17:22 Follow up: Response: No adverse reaction; IV Status: Completed infusion mb9 14:30 Drug: Albuterol Inhalation 2.5 mg Route: Inhalation; mb9 14:34 Not Given (Physician Discretion): MethylPREDNISolone Sodium Succinate IM 125 mg IM once mb9 14:35 Drug: Ondansetron IVP 4 mg Route: IVP; Site: right forearm; mb9 16:01 Follow up: Response: No adverse reaction mb9 14:39 Drug: morphine IVP or IV 4 mg Route: IVP; Infused Over: 4 mins; Site: right forearm; mb9 16:01 Follow up: Response: No adverse reaction mb9 14:45 Drug: MethylPrednisoLONE IVP 125 mg Route: IVP; Site: right forearm; mb9 16:01 Follow up: Response: No adverse reaction mb9 16:21 Drug: DuoNeb Nebulize (3:1) (2.5 mg - 0.5 mg) 3 ml Route: Nebulizer; mb9 16:49 Follow up: Response: No adverse reaction mb9 16:50 Drug: Ondansetron IVP 4 mg Route: IVP; Site: right forearm; mb9 17:22 Follow up: Response: No adverse reaction mb9 16:53 Drug: morphine IVP or IV 4 mg Route: IVP; Infused Over: 4 mins; Site: right forearm; mb9 17:22 Follow up: Response: No adverse reaction mb9 Medication: 14:33 VIS not applicable for this client. mb9 Output: 16:21 Urine: 845ml (Voided); Total: 845ml. mb9 Outcome: 16:40 Decision to Hospitalize by Provider. sp4 19:41 AMA Left before signing form. vc1 19:41 Condition: improved 19:53 Patient left the ED. vc1 Signatures: Dispatcher [employer] EDEstella Mares, RN RN ll1 Shena Benson RN RN ld1 Piper Humphrey RN RN vc1 Bianca Shi RN RN mb9 Jose Crews MD MD sp4 Corrections: (The following items were deleted from the chart) 14:25 14:02 BP 127 / 89; Resp 18bpm; mb9 mb9
--- NOTE | 2023-07-13 16:41 | EDPHYS ---
Physician Documentation [facility] Name: Randy Briones Age: 53 yrs Sex: Male : 1970 Arrival Date: 07/13/2023 Time: 13:53 Bed 7 Private MD: ED Physician Jose Crews HPI: 07/13 14:02 This 53 yrs old Male presents to ER via Unassigned with complaints of sp4 Intoxication, fall, chest pain . 16:48 This is a 53-year-old male with history of alcohol abuse, tobacco use, history of COPD, sp4 GERD, history of multiple COPD exacerbation episodes, hypertension, history of multiple falls secondary to alcohol use. Patient presents with EMS because his called about patient falling down. On presentation patient is heavily intoxicated but is able to report that he has left-sided chest pain from recent fall, multiple left arm skin abrasions from recent fall, also shortness of breath. Patient admits to drinking 6 large beers today. Patient admits persistent tobacco use disorder. Patient's last admission was 06/23/2023 with discharge on 06/26/2023. At which time patient has left AGAINST MEDICAL ADVICE. Patient was admitted for COPD exacerbation and found to be in alcohol withdrawal. Patient was started on Librium and as needed lorazepam. Attendance Officer commented that patient should be on steroids and bronchodilators. Patient had significant improvement in his symptoms but he required doses of lorazepam. Patient then determined that he would like to go home AGAINST MEDICAL ADVICE. Patient was also provided prescription for chlordiazepoxide and prednisone.. Patient's home medications include prednisone 10 mg daily, Protonix 40 mg twice a day, budesonide/formoterol/Symbicort 1604.5 inhaler. Aldactone 5 mg p.o. daily, tiotropium bromide Spiriva 2 puffs daily, amlodipine 10 mg p.o. daily, Librium p.o. daily. Historical: - Allergies: 14:13 Lisinopril; mb9 - PMHx: 14:13 Alcoholism; COPD; Hypertension; mb9 - PSHx: 14:13 Amputation of left index finger; mb9 - Immunization history:: Adult Immunizations up to date. - Social history:: Smoking status: Patient reports the use of cigarette tobacco products, smokes two packs cigarettes per day. - Family history:: not pertinent. ROS: 16:48 Constitutional: Negative for fever, chills, and weight loss, positive generalized sp4 weakness, alcohol intoxication, acute fall, multiple skin abrasions left arm, left-sided chest wall pain secondary to the fall. Positive persistent alcohol and tobacco abuse 16:48 All other systems are negative. Exam: 16:48 Constitutional: This is a well developed, well nourished patient who is awake, sp4 positive for heavily intoxicated male, ill-appearing, nontoxic-appearing, but some hypoxemia on arrival. Patient required oxygen support. Patient has facial plethora, physical deconditioning, multiple abrasions and skin small tears left upper arm. And left hand. Patient is mostly cooperative with exam Head/Face: Normocephalic, atraumatic. Eyes: Pupils equal round and reactive to light, extra-ocular motions intact. Lids and lashes normal. Conjunctiva and sclera are not injected. Cornea within normal limits. Periorbital areas with no swelling, redness, or edema. ENT: Nares patent. No nasal discharge, no septal abnormalities noted. Tympanic membranes are normal and external auditory canals are clear. Oropharynx with no redness, swelling, or masses, exudates, or evidence of obstruction, uvula midline. Mucous membranes moist. Neck: Trachea midline, no thyromegaly or masses palpated, and no cervical lymphadenopathy. Supple, full range of motion without nuchal rigidity, or vertebral point tenderness. Chest/axilla: Normal chest wall appearance and motion. Nontender with no deformity. No lesions are appreciated. Cardiovascular: Regular rate and rhythm with a normal S1 and S2. No gallops, murmurs, or rubs. Normal PMI, no JVD. No pulse deficits. Respiratory: Lungs have equal breath sounds bilaterally, positive bilateral diffuse expiratory wheezes, bilateral decreased lung sounds. Positive dyspnea and tachypnea. Positive hypoxemia on the monitor. Positive increased work of breathing and mild retractions Abdomen/GI: Soft, non-tender, with normal bowel sounds. No distension or tympany. No guarding or rebound. No evidence of tenderness throughout. Back: No spinal tenderness. No costovertebral tenderness. Male : Normal genitalia with no discharge or lesions. Skin: Warm, dry with normal turgor. Normal color with no rashes, positive multiple skin abrasions to left arm and hand MS/ Extremity: Pulses equal, no cyanosis. Neurovascular intact. Full, normal range of motion. Positive left hand skin abrasion Neuro: Awake and alert, GCS 15, oriented to person, heavy intoxication limits exam cranial nerves II-XII grossly intact. Motor strength 5/5 in all extremities. Sensory grossly intact. Grossly no lateralizing neurologic deficits Psych: Awake, alert, with orientation to person, exam is limited by heavy intoxication 16:48 ECG was reviewed by the Attending Physician. EKG at 1508, reveals normal sinus rhythm, incomplete right bundle branch block, no ST elevation or depression, otherwise normal EKG, there is no ectopy Vital Signs: 14:02 BP 127 / 89; Pulse 88; Resp 18; Temp 98.2; Pulse Ox 97% on 3 lpm NC; Weight 73.94 kg; mb9 Height 5 ft. 4 in. ; Pain 10/10; 15:09 BP 122 / 81; Pulse 92; Resp 18; Pulse Ox 94% on R/A; Pain 7/10; ld1 16:05 BP 128 / 64; Pulse 92; Resp 18; Pulse Ox 93% on R/A; ld1 17:03 BP 150 / 101; Pulse 100; Resp 18; Pulse Ox 100% on R/A; ld1 18:42 BP 101 / 87; Pulse 95; Resp 18; Pulse Ox 100% on R/A; mb9 19:24 BP 146 / 95; Pulse 109; Resp 14; Pulse Ox 97% ; vc1 14:02 Body Mass Index 27.98 (73.94 kg, 162.56 cm) mb9 14:02 Pain Scale: Adult mb9 15:09 Pain Scale: Adult ld1 MDM: 14:04 Patient medically screened. sp4 16:48 Differential Diagnosis altered mental status, sepsis, flu. Data reviewed: vital signs, sp4 nurses notes, EMS record, old medical records, lab test result(s), EKG, radiologic studies, plain films. Consideration of Admission/Observation Patient was admitted/placed on observation. Escalation of care including admission/observation considered. Management of patient was discussed with the following: Hospitalist: Discussed with admitting service. ED course: Patient is heavily intoxicated today also hypoxemic with hypercarbia PCO2 51 , patient at this time warrants admission for management of COPD also management of moderate alcohol intoxication, and monitoring for alcohol withdrawals. I have advised patient to discontinue alcohol abuse and attend rehab. . 07/13 14:04 Order name: BMP; Complete Time: 15:58 4 07/13 14:04 Order name: Blood Culture Adult (2) sp4 07/13 14:04 Order name: CBC with Diff; Complete Time: 15:58 4 07/13 14:04 Order name: CPK; Complete Time: 15:58 4 07/13 14:04 Order name: Hepatic Function; Complete Time: 15:58 4 07/13 14:04 Order name: Lipase; Complete Time: 15:58 sp4 07/13 14:04 Order name: Magnesium; Complete Time: 15:58 [facility] 07/13 14:04 Order name: NT PRO-BNP; Complete Time: 15:58 [facility] 07/13 14:04 Order name: PT-INR; Complete Time: 15:58 4 07/13 14:04 Order name: Ptt, Activated; Complete Time: 15:58 [facility] 07/13 14:04 Order name: Troponin HS; Complete Time: 15:58 4 07/13 14:04 Order name: Alcohol Level; Complete Time: 15:58 4 07/13 14:06 Order name: SARS RAPID; Complete Time: 19:02 [facility] 07/13 14:06 Order name: Influenza Screen (a \T\ B); Complete Time: 15:58 4 07/13 16:00 Order name: ABG; Complete Time: 19:02 4 07/13 17:34 Order name: Magnesium; Complete Time: 19:02 EDMS 07/13 17:34 Order name: Phosphorus; Complete Time: 19:02 EDMS 07/13 17:34 Order name: Urinalysis w/ reflexes EDMS 07/13 17:34 Order name: Basic Metabolic Panel EDMS 07/13 17:34 Order name: Basic Metabolic Panel EDMS 07/13 17:34 Order name: CBC with Automated Diff EDMS 07/13 17:34 Order name: CBC with Automated Diff EDMS 07/13 17:34 Order name: NT PRO-BNP EDMS 07/13 17:34 Order name: NT PRO-BNP EDMS 07/13 14:05 Order name: CT Chest Abdomen Pelvis W/O Contrast 4 07/13 14:19 Order name: Chest Abd Pelvis Wo Con; Complete Time: 15:58 EDFL 07/13 14:04 Order name: EKG; Complete Time: 14:35 sp4 07/13 17:34 Order name: [facility] 07/13 14:04 Order name: Cardiac monitoring; Complete Time: 15:05 sp4 07/13 14:04 Order name: EKG - Nurse/Tech; Complete Time: 15:05 sp4 07/13 14:04 Order name: IV Saline Lock; Complete Time: 15:05 sp4 07/13 14:04 Order name: Labs collected and sent; Complete Time: 15:05 sp4 07/13 14:04 Order name: O2 Per Protocol; Complete Time: 15:05 sp4 07/13 14:04 Order name: O2 Sat Monitoring; Complete Time: 15:05 sp4 EC:48 Rate is 90 beats/min. Rhythm is regular, Normal Sinus Rhythm. QRS [place] is Normal. TN sp4 interval is normal. QRS interval is prolonged. QT interval is normal. No Q waves. T waves are Normal. Clinical impression: No evidence of ischemia. Interpreted by me. Administered Medications: 14:24 Drug: Thiamine IV 100 mg Route: IV; Rate: bolus; Site: right forearm; mb9 17:22 Follow up: Response: No adverse reaction; IV Status: Completed infusion mb9 14:30 Drug: Albuterol Inhalation 2.5 mg Route: Inhalation; mb9 14:34 Not Given (Physician Discretion): MethylPREDNISolone Sodium Succinate IM 125 mg IM once mb9 14:35 Drug: Ondansetron IVP 4 mg Route: IVP; Site: right forearm; mb9 16:01 Follow up: Response: No adverse reaction mb9 14:39 Drug: morphine IVP or IV 4 mg Route: IVP; Infused Over: 4 mins; Site: right forearm; mb9 16:01 Follow up: Response: No adverse reaction mb9 14:45 Drug: MethylPrednisoLONE IVP 125 mg Route: IVP; Site: right forearm; mb9 16:01 Follow up: Response: No adverse reaction mb9 16:21 Drug: DuoNeb Nebulize (3:1) (2.5 mg - 0.5 mg) 3 ml Route: Nebulizer; mb9 16:49 Follow up: Response: No adverse reaction mb9 16:50 Drug: Ondansetron IVP 4 mg Route: IVP; Site: right forearm; mb9 17:22 Follow up: Response: No adverse reaction mb9 16:53 Drug: morphine IVP or IV 4 mg Route: IVP; Infused Over: 4 mins; Site: right forearm; mb9 17:22 Follow up: Response: No adverse reaction mb9 Disposition Summary: 07/13/23 16:40 Hospitalization Ordered Hospitalization Status: Inpatient Admission sp4 Provider: Joselito Thibodeaux sp4 Location: Telemetry/[facility] (Inpatient) sp4 Condition: Stable sp4 Problem: new sp4 Symptoms: have improved sp4 Bed/Room Type: Standard sp4 Room Assignment: sp4 Diagnosis - COPD/ Chronic obstructive pulmonary disease with (acute) exacerbation sp4 - Alcohol intoxication, acute fall, multiple skin tears, alcoholism, COPD sp4 exacerbation with hypoxemia and hypercarbia Forms: - Medication Reconciliation Form sp4 - SBAR form sp4 - Leadership Thank You Letter sp4 Signatures: Dispatcher [employer] Bianca Jarvis RN RN mb9 Jose Crews MD MD sp4
[2023-07-13 16:58] LABS: SARS-CoV-2 Antigen Rapid Res Negative (Negative)
[2023-07-13] MEDS ORDERED: ACETAMINOPHEN 325 MG TABLET PO PRN (17:28)
[2023-07-13] MEDS ORDERED: HYDROMORPHONE HCL 1 MG/ML INJ IV PRN (17:28)
[2023-07-13] MEDS ORDERED: ONDANSETRON 4 MG/2 ML VIAL IV PRN (17:32)
[2023-07-13] MEDS ORDERED: LORazepam 2 MG/ML VIAL IV PRN (17:37)
--- NOTE | 2023-07-13 17:40 | P.HP ---
Certification for Inpatient Patient admitted to: Inpatient With expected LOS: >2 Midnights Patient will require the following post-hospital care: None Practitioner: I am a practitioner with admitting privileges, knowledge of patient current condition, hospital course, and medical plan of care. Services: Services provided to patient in accordance with Admission requirements found in Title 42 Section 412.3 of the Code of Federal Regulations Patient History Date of Service: 07/13/23 Reason for admission: SOB History of Present Illness: Patient is a 53-year-old male with a past medical history significant for alcohol abuse, COPD, GERD, hypertension who presents with complaint of shortness of breath and left rib cage pain. Patient reported that he fell a couple days ago and fell on his left side. Patient rated pain as 10/10 and described pain as aching in quality. Patient reported associated signs and symptoms of cough, dizziness and diarrhea. Patient reported 2 episodes of diarrhea this morning. Patient noted with multiple bruises and abrasions in the upper extremities. Patient denies any other signs or symptoms. Symptoms are aggravated or relieved by nothing. Patient was brought to the hospital for medical evaluation. Allergies lisinopril Allergy (Verified 04/26/22 13:11) Shortness of breath BC powder Allergy (Mild, Uncoded 04/26/22 13:10) Hives Lisinopril Allergy (Mild, Uncoded 04/26/22 13:10) Shortness of breath Home Medications: predniSONE [Prednisone*] 10 mg PO DAILY #30 tab 04/28/22 Pantoprazole Sodium 40 mg PO BID #60 tab 11/24/22 Budesonide/Formoterol Fumarate [Symbicort 160-4.5 Mcg Inhaler] 2 puff IH DAILY 06/23/23 Spironolactone [Aldactone*] 25 mg PO DAILY 06/23/23 Tiotropium [place] [Spiriva] 2 puff IH DAILY 06/23/23 Amlodipine [Norvasc*] 10 mg PO DAILY 06/24/23 chlordiazePOXIDE HCl [Librium*] See Rx Instructions .ROUTE .COMPLEX #6 cap 06/26/23 predniSONE [Prednisone] 20 mg PO BID 5 Days #10 tab 06/26/23 - Past Medical/Surgical History Diabetic: No -: Hypertension -: COPD on chronic steroids/home O2 -: Tobacco abuse -: Alcohol abuse -: GERD -: Obesity -: BUD -: 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 - Family History Mother -: Diabetes, Cancer Notes: colon cancer Father -: Lung disease Notes: COPD - Social History Smoking Status: Current every day smoker Smoking therapy provided: Yes Patient receptive to therapy: Yes Alcohol use: Yes CD- Drugs: No Caffeine use: No Place of Residence: Home Review of Systems General: Unremarkable Eyes: Unremarkable ENT: Unremarkable Respiratory: Cough, Shortness of Breath Cardiovascular: Unremarkable Gastrointestinal: Diarrhea Genitourinary: Unremarkable Musculoskeletal: Other (Left rib cage pain) Integumentary: Unremarkable Neurological: Other (Dizziness ) Lymphatics: Unremarkable Physical Examination - Physical Exam General: Alert, In no apparent distress, Oriented x3, Cooperative HEENT: Atraumatic, PERRLA, Mucous membr. moist/pink, EOMI, Sclerae nonicteric Neck: Supple, 2+ carotid pulse no bruit, No LAD, Without JVD or thyroid abnormality Respiratory: Clear to auscultation bilaterally, Normal air movement Cardiovascular: No edema, Regular rate/rhythm, Normal S1 S2 Capillary refill: <2 Seconds Gastrointestinal: Normal bowel sounds, No tenderness Musculoskeletal: No clubbing, No tenderness Integumentary: No rashes, No significant lesion Neurological: Normal speech, Normal tone, Normal affect Lymphatics: No axilla or inguinal lymphadenopathy - Studies Laboratory Data (last 24 hrs) 07/13/23 07/13/23 07/13/23 15:00 15:00 15:00 WBC 13.60 H Hgb 15.2 Hct 43.7 Plt Count 302 PT 9.4 L INR 0.85 APTT 32.6 Sodium 136 Potassium 4.6 BUN 6 L Creatinine 0.61 L Glucose 101 Magnesium 2.0 Total Bilirubin 0.1 L AST 8 L ALT 15 L Alkaline Phosphatase 52 Lipase 278 H Microbiology Data (last 24 hrs): 07/13/23 15:10 Nasopharnyx Influenza Type A Antigen Screen - Final 07/13/23 15:10 Nasopharnyx Influenza Type B Antigen Screen - Final Assessment and Plan - Plan --Acute on chronic COPD exacerbation. Continue neb treatment with albuterol\Atrovent. Continue steroids and home medications. --Alcohol abuse. Alcohol blood level noted to be 315. Patient placed on Folic acid\thiamine\multivitamin Librium and Ativan prn. Continue alcohol withdrawal protocol and assessment. Patient counseled on alcohol cessation. Continue supportive care. -- Nicotine dependence. Patient placed on nicotine patch and counseled on tobacco cessation. --GERD. Continue Protonix. -- Hypertension. Poorly controlled. We will manage BP with labetalol as needed. --Leukocytosis. Likely reactive versus steroid-induced. We will continue to monitor WBC levels. --Rib cage pain. S\P fall. CT imaging does not indicate any acute finding. We will manage pain with current pain medication regimen. --Diarrhea. We will get some stool studies to rule out any infection. Continue supportive care --DVT prophylaxis with Lovenox subQ. Discharge Plan: Home - Advance Directives Does patient have a Living Will: No Does patient have a Durable POA for Healthcare: No - Code Status/Comfort Care Code Status Assessed: Yes Physician Review: Patient Assessed, Agree with Above Assessment and Plan Critical Care: No
[2023-07-13 18:17] LABS: Magnesium 1.9 mg/dL (1.6-2.4); Phosphorus 3.2 mg/dL (2.5-4.9)
[2023-07-13] MEDS ORDERED: ENOXAPARIN 40 MG/0.4 ML SQ SCH (19:00)
[2023-07-13] MEDS ORDERED: IPRATROPIUM BROM 0.5MG/2.5ML NEB SCH (20:00)
[2023-07-13] MEDS ORDERED: ALBUTEROL 2.5 MG/3 ML NEB SOL NEB SCH (20:00)
[2023-07-13 20:02] VITALS: TEMP 98.2
[2023-07-13 20:07] VITALS: BP 146/95; O2SAT 97
[2023-07-13] MEDS ORDERED: THIAMINE HCL 100 MG TABLET PO SCH (21:00)
[2023-07-13] MEDS ORDERED: FOLIC ACID 1 MG TABLET PO SCH (21:00)
[2023-07-13] MEDS ORDERED: MULTIVITAMIN TAB PO SCH (21:00)
[2023-07-13] MEDS ORDERED: METHYLPREDNISOLONE 40 MG INJ IV SCH (23:00)
[2023-07-14] MEDS ORDERED: chlordiazePOXIDE HCl 5 MG CAP PO SCH
[2023-07-14] MEDS ORDERED: LABETALOL 20 MG/4ML SYRINGE IV PRN (00:12)
[2023-07-14] MEDS ORDERED: ASPIRIN 81 MG CHEWABLE TABLET PO SCH (09:00)
[2023-07-14] MEDS ORDERED: NICOTINE 21 MG/PAT TD SCH (09:00)
--- NOTE | 2023-07-14 16:46 | EKG ---
Test Date: 2023-07-13 Test Time: 15:08:45 Instructional Technology Specialist: MB MEASUREMENT RESULTS: Intervals: Rate: 90 GA: 134 QRSD: 100 QT: 360 QTc: 440 [place]: P: 63 GA: 134 QRS: 86 T: 72 INTERPRETIVE STATEMENTS: Normal sinus rhythm Incomplete right bundle branch block Borderline ECG Compared to ECG 06/28/2023 00:13:58 No significant changes Electronically Signed On 07-14-23 16:42:49 CDT by Rosalino Albert
== END 2023-07-13 18:00 | disposition left against medical advice (07) | DRG 192 ==
LOC: ER 13:53 → ERHOLD 17:26
PROVIDERS: ADMIT Hospitalist; ATTEND Internal Medicine
PROC: 5A09357 Assistance with Respiratory Ventilation, Less than 24 Consecutive Hours, Continuous Positive Airway Pressure (ICD-10-PCS; principal; 2023-07-13)
DX: J44.1 Chronic obstructive pulmonary disease with (acute) exacerbation (principal); F10.229 Alcohol dependence with intoxication, unspecified; K21.9 Gastro-esophageal reflux disease without esophagitis; I10 Essential (primary) hypertension; D72.829 Elevated white blood cell count, unspecified; S40.812A Abrasion of left upper arm, initial encounter; F17.210 Nicotine dependence, cigarettes, uncomplicated; R09.02 Hypoxemia; R07.81 Pleurodynia; R19.7 Diarrhea, unspecified; R06.89 Other abnormalities of breathing; Z79.52 Long term (current) use of systemic steroids; Z71.41 Alcohol abuse counseling and surveillance of alcoholic; Z53.29 Procedure and treatment not carried out because of patient's decision for other reasons; Z79.899 Other long term (current) drug therapy; Z89.022 Acquired absence of left finger(s); W19.XXXA Unspecified fall, initial encounter; Y93.9 Activity, unspecified; Y92.9 Unspecified place or not applicable; Y99.9 Unspecified external cause status; Y90.8 Blood alcohol level of 240 mg/100 ml or more
CPT/HCPCS: 36415; 36600; 71250; 74176; 80048; 80076; 82077; 82550; 82805; 83690; 83735; 83880; 84100; 84484; 85025; 85610; 85730; 87040; 87205; 87804; 87811; 93005; 94640; 96365; 96366; 96375; 99285; J2405; J2930; J3411; J7613; J7644

== ENCOUNTER 2023-10-05 02:21 | Observation (INO) | payer OTHER ==
--- OUTSIDE RECORDS SUMMARY | 2023-10-05 02:25 | XMS REPORT | Continuity of Care Document ---
:1970 Author Organization [facility] t Address [address] [place] [address] Care Team Providers Name Role Phone SANDRA LOPEZ Primary Care Physician Unavailable DARIEN LOBO Attending Clinician Unavailable MARIA ELENA CHAN MEDICAL Attending Clinician UnavailMELINDA Rojas Attending Clinician Unavailable Melinda Hastings DO Attending Clinician CHRISTY SHAW Attending Clinician Unavailable Christy Shaw MD Attending Clinician DENISE SUNG Attending Clinician Unavailable KARLEY ADAMS Attending Clinician Unavailable MELINDA HASTINGS Admitting Clinician Unavailable CHRISTY SHAW Admitting Clinician Unavailable Payers Payer Name Policy Type Policy Number Effective Date Expiration Date Whitney hopemassiel [facility] 9 [id number] 2023 00:00:00 SILVER 2: [employer] LEARNING SUPPORT AIDE 94 ON Problems Condition Condition Condition Status Onset Resolution Last Treating Co mments Source Name Details Category Date Date Treatment Clinician Date Acute Acute Disease Active Univers exacerbati exacerbati 5-16 it y of on of on of 00:00: [place] chronic chronic 00 Medical obstructiv obstructiv Br anch e e pulmonary pulmonary disease disease (COPD) (COPD) Obesity Obesity Disease Active Univers (BMI (BMI 5-16 ity of 30-39.9) 30-39.9) 00:00: [address] Allergies, Adverse Reactions, Alerts Allergy Allergy Status Severity Reaction(s) Onset Inactive Treating Comm ents Source Name Type Date Date Clinician Lisinopr Propensi Active Anaphylaxis U nivers il ty to 5-16 ity of adverse 00:00: [place] reaction 00 [facility] [place] LISINOPR DRUG Active Anaphylaxis 2017- Uni vers [place] INGREDI 5-16 ity of 00:00: [place] 00 Medical Branch Social History Social Habit Start Date Stop Date Quantity Comments Source History of Smokes tobacco University of tobacco use daily [facility] Exposure to 2022-10-04 2022-10-14 Not sure [facility] SARS-CoV-2 00:00:00 10:25:00 [facility] [place] (event) [place] Alcohol intake 2022-03-09 2022-03-09 4.29 /d University of 00:00:00 00:00:00 [facility] Tobacco use and 2018-03-24 2018-03-24 User of smokeless Un iversity of exposure 00:00:00 00:00:00 tobacco [facility] Tobacco Comment 2018-03-24 2018-03-24 trying to quit Unive rsity of 00:00:00 00:00:00 [facility] Sex [birth year] At [birth year] Universit y of 00:00:00 00:00:00 [facility] Smoking Status Start Date Stop Date Source Smokes tobacco daily 2018-03-24 00:00:00 Univers ity of [facility] Medications Ordered Filled Start Stop Current Ordering Indication Dosage Frequency Signature Comments Components Source Medication Medication Date Date Medication? Clinician (SIG) Name Name iopamidol 2021-11- No [id number] 70mL 70 mL, U nivers (ISOVUE 2-06 12-06 Intravenou ity o f 370-500 mL) 18:30: 18:30 s, ONCE, 1 [place] injection 00 :00 dose, On Medica l 70 mL e Branch 10/14/22 at 1230, Routine methylpredn 2021-11 Yes 125mg 125 mg, Un odalys isolone sod 2-06 Intravenou it y of succ 18:00: s, Q6H, [place] (SOLU-MEDRO 00 First dose Me dical L) [...] 10/14/22 at 1045, Routine levoFLOXaci 2021-11 Yes [id number] 750mg Take 1 Univers n 750 mg [...] of succ 11:45: 10:43 s, ONCE, 1 [place] (SOLU-MEDRO 00 :00 dose, On Medi keo [...] 0530, solution 3 Routine mL albuterol Yes [id number] 2{puff} Inhale 2 Univers 90 02-20 Puffs ity of mcg/actuati 00:00: every 4 Saúl as on inhaler 00 (four) Medical hours as Branch needed for Wheezing or Shortness of Breath. albuterol Yes [id number] 2.5mg Inhale 3 Univers 2.5 mg /3 4-14 mL every 4 ity of mL (0.083 00:00: (four) [place] %) 00 hours. May Medical nebulizer also Branch solution nebulize one extra every 6 hours. budesonide- Yes [id number] 2{puff} Inhale 2 Univers formoteroL 4-14 Puffs 2 ity of 160-4.5 00:00: (two) [place] mcg/actuati 00 times Medical on inhaler daily. Branch triamterene Yes [id number] 1{tbl} Take 1 Univers -hydrochlor 4-14 tablet by ity of othiazid 00:00: mouth [place] 37.5-25 mg 00 daily. Medical tablet Branch chlordiazeP 0 Yes [id number] 25mg Take 1 Univers OXIDE 25 mg 4-14 capsule by it y of capsule 00:00: mouth [place] 00 every 6 Medical (six) Branch hours as needed for Anxiety, Agitation, Heart Rate => 100 or Detox. predniSONE 0 Yes [id number] TAKE ONE Univers 10 mg 4-14 TABLET BY ity of tablet 00:00: MOUTH [place] 00 DAILY Medical Branch albuterol 0 Yes [id number] 2{puff} Inhale 2 Univers 90 4-14 Puffs ity of mcg/actuati 00:00: every 4 Saú[place] as on inhaler 00 (four) Medical hours as Branch needed for Wheezing or Shortness of Breath. albuterol 0 Yes [id number] 2.5mg Inhale 3 Univers 2.5 mg /3 4-14 mL every 4 ity of mL (0.083 00:00: (four) [place] %) 00 hours. May Medical nebulizer also Branch solution nebulize one extra every 6 hours. budesonide- 2021- Yes [id number] 2{puff} Inhale 2 Univers formoteroL 4-14 Puffs 2 ity of 160-4.5 00:00: (two) [place] mcg/actuati 00 times Medical on inhaler daily. Branch triamterene 0 Yes [id number] 1{tbl} Take 1 Univers -hydrochlor 4-14 tablet by ity of othiazid 00:00: mouth [place] 37.5-25 mg 00 daily. Medical tablet Branch chlordiazeP Yes [id number] 25mg Take 1 Univers OXIDE 25 mg 4-14 capsule by it y of capsule 00:00: mouth [place] 00 every 6 Medical (six) Branch hours as needed for Anxiety, Agitation, Heart Rate => 100 or Detox. predniSONE Yes [id number] TAKE ONE Univers 10 mg 4-14 TABLET BY ity of tablet 00:00: MOUTH [place] 00 DAILY Medical Branch albuterol Yes [id number] 2{puff} Inhale 2 Univers 90 4-14 Puffs ity of mcg/actuati 00:00: every 4 Saú[place] as on inhaler 00 (four) Medical hours as Branch needed for Wheezing or Shortness of Breath. albuterol Yes [id number] 2.5mg Inhale 3 Univers 2.5 mg /3 4-14 mL every 4 ity of mL (0.083 00:00: (four) [place] %) 00 hours. May Medical nebulizer also Branch solution nebulize one extra every 6 hours. budesonide- Yes [id number] 2{puff} Inhale 2 Univers formoteroL 4-14 Puffs 2 ity of 160-4.5 00:00: (two) [place] mcg/actuati 00 times Medical on inhaler daily. Branch triamterene Yes [id number] 1{tbl} Take 1 Univers -hydrochlor 4-14 tablet by ity of othiazid 00:00: mouth [place] 37.5-25 mg 00 daily. Medical tablet Branch chlordiazeP Yes [id number] 25mg Take 1 Univers OXIDE 25 mg 4-14 capsule by it y of capsule 00:00: mouth [place] 00 every 6 Medical (six) Branch hours as needed for Anxiety, Agitation, Heart Rate => 100 or Detox. predniSONE Yes [id number] TAKE ONE Univers 10 mg 4-14 TABLET [...] Branch Wheezing or Shortness of Breath. albuterol Yes 2.5mg Inhale 3 Uni vers [...] Medical on inhaler daily. Branch triamterene Yes 1{capsu Take 1 U nivers -hydrochlor 5-18 le} capsule by it y of othiazide 16:32: mouth [place] 37.5-25 mg 14 every Medical per capsule morning. Bran ch amLODIPine 2018-0 Yes 10mg Take 10 mg U nivers 10 mg 5-18 by mouth ity of tablet 16:32: at [place] [address] bedtime. Medical Branch gabapentin 2018-0 Yes 100mg Take 100 Un odalys 100 mg 5-18 mg by ity of capsule 16:32: mouth 2 [place] [address] (two) Medical times Branch daily as needed ([facility] pain). foLIC acid 2018-0 Yes 1mg Take 1 mg Un odalys 1 mg tablet 5-18 by mouth ity of 16:32: daily. [address] triamterene 2018-0 Yes 1{capsu Take 1 U nivers -hydrochlor 5-18 le} capsule by it y of othiazide 16:32: mouth [place] 37.5-25 mg 14 every Medical per capsule morning. Bran ch amLODIPine 2018-0 Yes 10mg Take 10 mg U nivers 10 mg 5-18 by mouth ity of tablet 16:32: at [place] [address] bedtime. Medical Branch gabapentin 2018-0 Yes 100mg Take 100 Un odalys 100 mg 5-18 mg by ity of capsule 16:32: mouth 2 [place] [address] (two) Medical times [place] daily as needed ([facility] pain). foLIC acid 2018-0 Yes 1mg Take 1 mg Un odalys 1 mg tablet 5-18 by mouth ity of 16:32: daily. [address] triamterene 2018-0 Yes 1{capsu Take 1 U nivers -hydrochlor 5-18 le} capsule by it y of othiazide 16:32: mouth [place] 37.5-25 mg 14 every Medical per capsule morning. Bran ch amLODIPine 2018-0 Yes 10mg Take 10 mg U nivers 10 mg 5-18 by mouth ity of tablet 16:32: at [place] [address] bedtime. Medical Branch gabapentin 2018-0 Yes 100mg Take 100 Un odalys 100 mg 5-18 mg by ity of capsule 16:32: mouth 2 [place] [address] (two) Medical times Branch daily as needed ([facility] pain). foLIC acid 2018-0 Yes 1mg Take 1 mg Un odalys 1 mg tablet 5-18 by mouth ity of 16:32: daily. [address] budesonide- 2018-0 Yes 2{puff} Inhale 2 [...] 00 times Medical on inhaler daily. Branch Vital Signs Vital Name Observation Time Observation Value Comments Source Systolic blood 2022-10-14 19:43:00 111 mm[Hg] [facility]iver [facility] Diastolic blood 2022-10-14 19:43:00 74 mm[Hg] [facility] Heart rate 2022-10-14 19:43:00 98 /min [facility] Body temperature 2022-10-14 19:43:00 36.39 Debbie [facility] Respiratory rate 2022-10-14 19:43:00 22 /min [facility] Oxygen saturation in 2022-10-14 19:43:00 94 /min [facility] Arterial blood by [facility] Pulse oximetry Branch Body height 2022-10-14 16:13:00 162.6 cm [facility] Body weight 2022-10-14 16:13:00 81.647 kg [facility] BMI 2022-10-14 16:13:00 30.90 kg/m2 [facility] Systolic blood 2022-03-12 10:13:00 119 mm[Hg] Univer [facility] Diastolic blood 2022-03-12 10:13:00 75 [facility]Hg[facility] 2022-03-12 10:13:00 105 /min [facility] Body temperature 2022-03-12 10:13:00 37.28 Debbie [facility] 2022-03-12 10:13:00 19 /min [facility] Body height 2022-03-12 10:13:00 162.6 cm Universi ty [facility] Body weight 2022-03-12 10:13:00 99.791 kg Universi ty [facility] BMI 2022-03-12 10:13:00 37.76 kg/m2 [facility] Oxygen saturation in 2022-03-12 10:13:00 96 /min [place] of Arterial blood by [facility] Pulse oximetry Branch Systolic blood 2022-02-20 11:57:00 155 mm[Hg] Tiffanie [facility] Diastolic blood 2022-02-20 11:57:00 88 mm[Hg] [facility] 2022-02-20 11:57:00 105 /min [facility] Respiratory rate 2022-02-20 11:57:00 18 /min [facility] Oxygen saturation in 2022-02-20 11:57:00 100 /min [facility] Arterial blood by [facility] Pulse oximetry Branch Body temperature 2022-02-20 09:25:00 37 Debbie [facility] Body height 2022-02-20 09:25:00 162.6 cm Universi ty [facility] Body weight 2022-02-20 09:25:00 96.163 kg [facility] BMI 2022-02-20 09:25:00 36.39 kg/m2 [facility] Procedures Procedure Date / Time Performing Clinician Source Performed CT ABDOMEN PELVIS W 2022-10-14 17:33:00 Melinda Hastings [facility] CONTRAST [facility] XR CHEST 1 VW 2022-10-14 17:10:37 Melinda Hastings [facility] TROPONIN I 2022-10-14 16:37:00 Melinda Hastings [facility] COMP. METABOLIC PANEL 2022-10-14 16:37:00 Melinda Hastings [facility] ([id number]) [facility] CBC WITH DIFF 2022-10-14 16:37:00 Melinda Hastings [facility] PROTHROMBIN TIME / INR 2022-10-14 16:37:00 Melinda Hastings [facility] URINALYSIS 2022-10-14 16:37:00 [facility] o f [facility] N-TERMINAL PRO-BNP 2022-10-14 16:37:00 [facility] CONSENT/REFUSAL FOR 2022-10-14 15:56:36 Doctor Unassigned, No Un [facility] [place] DIAGNOSIS AND TREATMENT Name [facility] CONSENT/REFUSAL FOR 2022-03-12 10:03:12 Doctor Unassigned, No Un iversity [facility] DIAGNOSIS AND TREATMENT Name [facility] XR CHEST 1 VW 2022-02-20 09:59:00 Christy Shaw [facility] LIPASE 2022-02-20 09:30:00 Christy Shaw [facility] TROPONIN I 2022-02-20 09:30:00 Christy Shaw [facility] COMP. METABOLIC PANEL 2022-02-20 09:30:00 Christy Shaw [facility] ([id number]) [facility] CBC WITH DIFF 2022-02-20 09:30:00 Christy Shaw [facility] N-TERMINAL PRO-BNP 2022-02-20 09:30:00 Christy Shaw [facility] NOTICE OF PRIVACY 2022-02-20 09:15:02 Doctor Unassigned, No Univ ersity [facility] PRACTICES Name [facility] CONSENT/REFUSAL FOR 2022-02-20 09:14:47 Doctor Unassigned, No Un iversity [facility] DIAGNOSIS AND TREATMENT Name [facility] Encounters Start End Encounter Admission Attending Care Care Encounter Source Date/Time Date/Time Type Type Clinicians Facility Department ID 2023-07-15 2023-07-15 Outpatient MARIA ELENA LOBO [id number] Maria Elena 00:00:00 00:00:00 DARIEN brunson 2023-06-16 2023-06-16 Outpatient MARIA ELENA LOBO [id number] Maria Elena 11:30:00 11:30:00 DARIEN brunson 2023-05-18 2023-05-18 Outpatient MARIA ELENA CHAN [id number] Maria Elena 00:00:00 00:00:00 MARIA ELENA brunson 2022-10-14 2022-10-14 Emergency X [facility] ERT [id number] Univers 10:07:00 14:39:00 MELINDA garcia [facility] 2022-10-14 2022-10-14 Emergency [facility] [id number] Univers 10:07:00 14:39:00 Melinda SMITH [id number] i ty [facility] [id number] [facility] [id number] [address] 2022-03-12 2022-03-12 [facility] [id number] Univers 05:15:00 06:41:00 CHRISTY [facility] 2022-03-12 2022-03-12 [facility] [id number] Univers 05:15:00 06:41:00 Christy CARPENTERKAROLYN [id number] ity [facility] [id number] [facility] [id number] [address] 2022-02-20 2022-02-20 [facility] [id number] Univers 04:17:00 07:16:00 CHRISTY [facility] 2022-02-20 2022-02-20 [facility] [id number] Univers 04:17:00 07:16:00 Christy CARPENTERKAROLYN [id number] ity [facility] [id number] [facility] [id number] [address] 2021-02-03 2021-02-03 Outpatient R PINEDA, [facility] [id number] Univers 11:10:00 11:10:00 DENISE [facility] 2021-01-13 2021-01-13 Outpatient [facility] [id number] Univers 11:20:00 11:20:00 ity [facility] 2020-11-10 2020-11-10 Outpatient Sarika ADAMS [facility] [id number] Univers 08:20:00 08:20:00 KARLEY garcia [facility] Results Test Description Test Time Test Comments Results Result Comments Source TROPONIN I 2022-02-20 10:16:22 Test Item Value Reference Range Interpretation Comme nts TROPONIN I (test code = 0.007 ng/mL See_Comment [Au tomated message] The [id number]) system which ge nerated this result tra [...] biotin. Lab Interpretation Normal (test code = 35659-1) [id number] 10:13:01 Test Item Value Reference Range Interpretation Comments NT-proBNP (test code 52 pg/mL See_Comment [Autom ated = 5700626925) message] The system which generated this result transmitted reference range : <=125. The reference range was not used to interpret this result as normal/abnormal . LOUISE (test code = LOUISE) Biotin has been reported to cause a negative bias, interpret results relative to patient's use of biotin. Lab Interpretation Normal (test code = 55220-9) [facility] ([id number])2022-02-20 10:04:02 Test Item Value Reference Range Interpretation Comments NA (test code = 137 mmol/L 135-145 5900794993) K (test code = 3.6 mmol/L 3.5-5.0 8594087067) CL (test code = 99 mmol/L 98-108 0417827233) CO2 TOTAL (test code = 25 mmol/L 23-31 2586035860) AGAP (test code = 2-16 6524024691) BUN (test code = 6 mg/dL 7-23 L 4740065512) GLUCOSE (test code = 88 mg/dL 70-110 7996678245) CREATININE (test code = 0.55 mg/dL 0.60-1.25 L 8112150597) TOTAL BILI (test code = 0.8 mg/dL 0.1-1.4 2777635837) CALCIUM (test code = 8.9 mg/dL 8.6-10.6 5214650762) T PROTEIN (test code = 7.5 g/dL 6.3-8.2 9463836809) ALBUMIN (test code = 4.8 g/dL 3.5-5.0 7509412633) ALK PHOS (test code = 113 U/L 34-122 6766037964) ALTv (test code = 84 U/L 5-50 H 1742-6) AST(SGOT) (test code = 107 U/L 13-40 H 9342247424) eGFR (test code = mL/min/1.73m2 4317889850) LOUISE (test code = LOUISE) Association of [...] tests). Lab Interpretation Abnormal (test code = 23977-4) [facility] [id number] 10:03:21 Test Item Value Reference Range Interpretation Comments LIPASE (test code = 2532032525) 193 U/L 0-220 Lab Interpretation (test code = Normal 35924-3) [facility] [id number] 09:39:17 Test Item Value Reference Range Interpretation Comments WBC (test code = See_Comment [Automated 1990-2) message] The sy stem which generated this [...] RDW-SD (test code = 44.4 fL 38.5-51.6 43844-2) RDW-CV (test code = 11.9 % 12.1-15.4 L 788-0) PLT (test code = See_Comment [Automated 777-3) message] The sy stem which generated this result transmitted reference range : 150 - 328 10*3/ ?L. The reference r ernie was not used to interpret this result as normal/abnormal . MPV (test code = 9.2 fL 9.8-13.0 L 75456-7) NRBC/100 WBC (test See_Comment [Automat ed code = 5933827525) message] The system which generated this result transmitted reference range : 0.0 - 10.0 /100 WBCs. The refer ence range was not u sed to interpret th is result as normal/abnormal . NRBC x10^3 (test code <0.01 See_Comment [Auto mated = 0551087343) message] The s ystem which generated this result transmitted reference range : 10*3/?L. The reference range was not used to interpret this result as normal/abnormal . GRAN MAT (NEUT) % 69.9 % (test code = 770-8) IMM GRAN % (test code 1.50 % = 9143894734) LYMPH % (test code = 18.9 % 736-9) MONO % (test code = 7.0 % 5905-5) EOS % (test code = 1.9 % 713-8) BASO % (test code = 0.8 % 706-2) GRAN MAT x10^3(ANC) 7.15 10*3/uL 1.99-6.95 H (test code = 2850688237) IMM GRAN x10^3 (test 0.15 10*3/uL 0.00-0.06 H code = 9423751703) LYMPH x10^3 (test code 1.93 10*3/uL 1.09-3.23 = 731-0) MONO x10^3 (test code 0.72 10*3/uL 0.36-1.02 = 742-7) EOS x10^3 (test code = 0.19 10*3/uL 0.06-0.53 711-2) BASO x10^3 (test code 0.08 10*3/uL 0.01-0.09 = 704-7) Lab Interpretation Abnormal (test code = 88355-5) [facility]"
[2023-10-05] MEDS ORDERED: METHYLPREDNISOLONE 125 MG INJ ONE (02:53)
[2023-10-05] MEDS ORDERED: ALBUTEROL 2.5 MG/3 ML NEB SOL ONE (02:54)
[2023-10-05] MEDS ORDERED: LORazepam 2 MG/ML VIAL ONE ×2 (02:54→05:07)
[2023-10-05] MEDS ORDERED: THIAMINE 200 MG/2 ML INJ ONE (02:54)
[2023-10-05] MEDS ORDERED: ASPIRIN 325 MG TAB ONE (02:54)
[2023-10-05] MEDS ORDERED: D5 0.45 NS 1,000 ML IV ONE (02:55)
[2023-10-05] MEDS ORDERED: GUAIFENESIN/DM 5 ML UCUP ONE (02:55)
[2023-10-05] MEDS ORDERED: IPRATROPIUM BROM 0.5MG/2.5ML ONE (02:55)
[2023-10-05 03:05] LABS: Arterial Blood Carboxyhemoglob 6.5 % (0-1.5); Blood Gas Oxyhemoglobin 83.8 % (94-97); Blood O2 Saturation 91.6 % (92-98.5)
[2023-10-05 03:27] LABS: Absolute Lymphocytes (CBC) 3.2 K/uL (0.7-4.9); Hematocrit 49.7 % (39.6-49.0); Lymphocytes % 31.1 % (15.3-44.8); MPV 6.8 fL (7.6-11.3); Platelets 278 thou/uL (152-406); RBC Red Blood Cell Count 4.82 M/uL (4.33-5.43)
[2023-10-05 03:31] LABS: Protime INR 0.85
[2023-10-05 03:39] LABS: Albumin 4.1 g/dL (3.4-5.0); Bilirubin Direct 0.1 mg/dL (0-0.2); Bilirubin Indirect, Calculated 0.3 mg/dL (0.2-0.8); Bilirubin Total 0.4 mg/dL (0.2-1.0); Magnesium 2.3 mg/dL (1.6-2.4); Potassium 3.8 mEq/L (3.5-5.1); Protein, Total 7.9 g/dL (6.4-8.2); Troponin High Sensitivity 6.9 pg/mL (<58.9)
[2023-10-05 04:34] LABS: SARS-COV-2 RT PCR NEGATIVE (NEGATIVE)
--- NOTE | 2023-10-05 04:48 | ER ---
Nurse's Notes [facility] Name: Randy Briones Age: 53 yrs Sex: Male : 1970 Arrival Date: 10/05/2023 Time: 02:21 Bed 18 Private MD: Diagnosis: COPD/ Chronic obstructive pulmonary disease with (acute) exacerbation;Chronic alcoholism, alcohol intoxication, COPD exacerbation with hypoxemia, chronic tobacco use disorder Presentation: 10/05 02:27 Chief complaint: Patient states: SOB,onset 0130 with body aches and headache pain of pf1 9,onset upon arrival to ER. Patient stated has been on a drinking binge for the past 4 days and has consumed approximately 100 beers. Patient stated last beer was at 5 hours ago. 02:27 Coronavirus screen: Vaccine status: Patient reports receiving the 2nd dose of the covid pf1 vaccine. Client denies travel out of the [place] in the last 14 days. Client presents with at least one sign or symptom that may indicate coronavirus-19. Ebola Screen: Patient negative for fever greater than or equal to 101.5 degrees Fahrenheit, and additional compatible Ebola Virus Disease symptoms. Initial Sepsis Screen: Does the patient meet any 2 criteria? HR > 90 bpm. No. Patient's initial sepsis screen is negative. Does the patient have a suspected source of infection? No. Patient's initial sepsis screen is negative. Risk Assessment: Do you want to hurt yourself or someone else? Patient reports no desire to harm self or others. 02:27 Method Of Arrival: Wheelchair pf1 02:27 Acuity: CANDACE 3 pf1 Historical: - Allergies: 02:51 Lisinopril; pf1 - PMHx: 02:51 Alcoholism; COPD; Hypertension; pf1 02:54 home 02 3LNC PRN; pf1 - PSHx: 02:51 Amputation of left index finger; pf1 - Immunization history:: Adult Immunizations not up to date, Client reports receiving the 2nd dose of the Covid vaccine, Last tetanus immunization: > 10 years ago Flu vaccine is not up to date. - Social history:: Smoking status: Patient reports the use of cigarette tobacco products, smokes one pack cigarettes per day. Patient uses alcohol, on a daily basis. Patient/guardian denies using street drugs. - Family history:: not pertinent. Screenin:56 [facility] ED Fall Risk Assessment (Adult) History of falling in the last 3 months, pf1 including since admission No falls in past 3 months (0 pts) Confusion or Disorientation No (0 pts) Intoxicated or Sedated No (0 pts) Impaired Gait No (0 pts) Mobility Assist Device Used No (0 pt) Altered Elimination No (0 pt) Score/Fall Risk Level 0 - 2 = Low Risk Oriented to surroundings, Maintained a safe environment, Educated pt \T\ family on fall prevention, incl call for assistance when getting out of bed, Assessed \T\ reinforced patient's understanding of fall precautions, Provided non-skid footwear, Hourly rounding (assess needs \T\ fall precautionary measures) done, Used ambulatory aids as needed (educated on \T\ assisted with), Used gait belt as appropriate. Abuse screen: Denies threats or abuse. Nutritional screening: No deficits noted. Tuberculosis screening: No symptoms or risk factors identified. Assessment: 02:30 General: Appears in no apparent distress. comfortable, Behavior is calm, cooperative, jb4 appropriate for age. Pain: Denies pain. 02:30 Neuro: Level of Consciousness is awake, alert, obeys commands, Oriented to person, jb4 place, time, situation. Cardiovascular: Patient's skin is warm and dry. Respiratory: Airway is patent Respiratory effort is even, labored, Respiratory pattern is regular, tachypnea. GI: No signs and/or symptoms were reported involving the gastrointestinal system. : No signs and/or symptoms were reported regarding the genitourinary system. EENT: No signs and/or symptoms were reported regarding the EENT system. Derm: Skin is intact, Skin is pink, warm \T\ dry. Musculoskeletal: No deficits noted. Circulation, motion, and sensation intact. Range of motion: intact in all extremities. 03:46 Reassessment: Patient appears in no apparent distress at this time. Patient and/or jb4 family updated on plan of care and expected duration. Pain level reassessed. Patient is alert, oriented x 3, equal unlabored respirations, skin warm/dry/pink. 05:00 Reassessment: Patient appears in no apparent distress at this time. Patient and/or jb4 family updated on plan of care and expected duration. Pain level reassessed. Patient is alert, oriented x 3, equal unlabored respirations, skin warm/dry/pink. 05:47 Reassessment: Patient appears in no apparent distress at this time. Patient and/or jb4 family updated on plan of care and expected duration. Pain level reassessed. Patient is alert, oriented x 3, equal unlabored respirations, skin warm/dry/pink. 06:47 Reassessment: Patient appears in no apparent distress at this time. Patient and/or jb4 family updated on plan of care and expected duration. Pain level reassessed. Patient is alert, oriented x 3, equal unlabored respirations, skin warm/dry/pink. Vital Signs: 02:27 BP 147 / 107; Pulse 132; Resp 20; Pulse Ox 93% on R/A; Weight 79.38 kg; Height 5 ft. 4 pf1 in. ; Pain 9/10; 03:53 BP 137 / 88; Pulse 107; Resp 21; Pulse Ox 94% on Nebulizer Mask; jb4 04:30 BP 137 / 97; Pulse 135; Resp 17; Pulse Ox 96% on 3 lpm NC; jb4 05:45 BP 139 / 91; Pulse 111; Resp 19; Pulse Ox 91% on 3 lpm NC; jb4 06:47 BP 149 / 96; Pulse 109; Resp 17; Pulse Ox 93% 3 lpm ; jb4 02:27 Body Mass Index 30.04 (79.38 kg, 162.56 cm) pf1 02:27 Pain Scale: Adult pf1 ED Course: 02:25 Patient arrived in ED. gm2 02:34 Jose Crews MD is Attending Physician. sp4 02:49 XRAY CXR (1 view) In Process Unspecified. EDMS 02:51 Triage completed. pf1 02:51 Lactate w/ 2H reflex if indic. Sent. km8 02:51 Alcohol Level Sent. km8 02:51 BMP Sent. km8 02:51 CBC with Diff Sent. km8 02:51 CPK Sent. km8 02:51 Hepatic Function Sent. km8 02:51 Lipase Sent. km8 02:51 Magnesium Sent. km8 02:51 NT PRO-BNP Sent. km8 02:51 PT-INR Sent. km8 02:52 Ptt, Activated Sent. km8 02:52 Troponin HS Sent. km8 03:12 Blood Culture Adult (2) Sent. km8 03:12 COVID-19/FLU A+B Sent. km8 04:46 Rodo Donovan is Hospitalizing Provider. sp4 06:47 Chivo Gill, RN is Primary Nurse. jb4 06:47 No provider procedures requiring assistance completed. Patient admitted, IV remains in jb4 place. 06:47 Patient has correct armband on for positive identification. Bed in low position. Call jb4 light in reach. Side rails up X 1. Administered Medications: 02:54 Drug: Albuterol Inhalation 2.5 mg Inhalation every 20 minutes x3 Route: Inhalation; jb4 02:54 Drug: Aspirin PO 325 mg PO once Route: PO; jb4 02:54 Drug: Ipratropium Inhalation Aerosol 0.5 mg Inhalation once; Every 20 min for a total jb4 of 3 treatments x3 Route: Inhalation; 02:54 Drug: MethylPrednisoLONE IVP 125 mg IVP once Route: IVP; Site: right antecubital; jb4 02:54 Drug: Ativan IVP 1 mg IVP once Route: IVP; Site: right antecubital; jb4 02:54 Drug: Thiamine IV 100 mg IV at bolus once Route: IV; Rate: bolus; Site: right jb4 antecubital; 02:55 Drug: Dextromethorphan-Guaifenesin PO Liquid 10 mg-100 mg/5 mL 10 ml PO once Route: PO; jb4 03:21 Drug: Albuterol Inhalation 2.5 mg Inhalation every 20 minutes x3 Route: Inhalation; jb4 03:21 Drug: Ipratropium Inhalation Aerosol 0.5 mg Inhalation once; Every 20 min for a total jb4 of 3 treatments x3 Route: Inhalation; 03:30 Drug: D5-1/2 NS IV 1000 ml IV at 125 ml/hr continuous Route: IV; Rate: 125 ml/hr; Site: jb4 left antecubital; 03:51 Drug: Albuterol Inhalation 2.5 mg Inhalation every 20 minutes x3 Route: Inhalation; jb4 03:51 Drug: Ipratropium Inhalation Aerosol 0.5 mg Inhalation once; Every 20 min for a total jb4 of 3 treatments x3 Route: Inhalation; 05:00 Drug: Ativan IVP 1 mg IVP once Route: IVP; Site: right antecubital; jb4 05:00 Drug: Ondansetron IVP 4 mg IVP once; over 2 minutes Route: IVP; Site: right antecubital;jb4 Outcome: 04:47 Decision to Hospitalize by Provider. sp4 06:47 Discharged to home ambulatory, jb4 06:47 Condition: stable 06:47 Discharge instructions given to patient, Instructed on the need for admit, Demonstrated understanding of instructions, 06:51 Patient left the ED. jb4 Signatures: Dispatcher [employer] EDChivo Rosas RN RN jb4 Yary Chávez RN RN pf1 Jose Crews MD MD sp4 Bonnie Sylvester 2 Mary Valenzuela RN RN km8 Corrections: (The following items were deleted from the chart) 02:55 02:51 PMHx: home 02 3LNC PRN (Hypertension); pf1 pf1
--- NOTE | 2023-10-05 04:48 | EDPHYS ---
Physician Documentation [facility] Name: Randy Briones Age: 53 yrs Sex: Male : 1970 Arrival Date: 10/05/2023 Time: 02:21 Bed 18 Private MD: ED Physician Jose Crews HPI: 10/05 02:37 This 53 yrs old Male presents to ER via Unassigned with complaints of sp4 Shortness Of Breath. 04:59 53-year-old male well-known to me from prior visits presents with alcohol intoxication, sp4 worsening shortness of breath.. Patient reported he has been binging alcohol for the last 4 days with last drink yesterday evening. Appears intoxicated on arrival with mild agitation. Patient is oxygen dependent COPD, continues to smoke at home. Historical: - Allergies: 02:51 Lisinopril; pf1 - PMHx: 02:51 Alcoholism; COPD; Hypertension; pf1 02:54 home 02 3LNC PRN; pf1 - PSHx: 02:51 Amputation of left index finger; pf1 - Immunization history:: Adult Immunizations not up to date, Client reports receiving the 2nd dose of the Covid vaccine, Last tetanus immunization: > 10 years ago Flu vaccine is not up to date. - Social history:: Smoking status: Patient reports the use of cigarette tobacco products, smokes one pack cigarettes per day. Patient uses alcohol, on a daily basis. Patient/guardian denies using street drugs. - Family history:: not pertinent. ROS: 04:59 Constitutional: Negative for fever, chills, and weight loss, positive for alcohol sp4 intoxication positive for shortness of breath positive for wheezing positive for cough Eyes: Negative for injury, pain, redness, and discharge, 04:59 All other systems are negative, Exam: 04:59 Constitutional: This is a well developed, well nourished patient who is awake, alert, sp4 and in no acute distress. Head/Face: Normocephalic, atraumatic. Eyes: Pupils equal round and reactive to light, extra-ocular motions intact. Lids and lashes normal. Conjunctiva and sclera are not injected. Cornea within normal limits. Periorbital areas with no swelling, redness, or edema. ENT: Nares patent. No nasal discharge, no septal abnormalities noted. Tympanic membranes are normal and external auditory canals are clear. Oropharynx with no redness, swelling, or masses, exudates, or evidence of obstruction, uvula midline. Mucous membranes moist. Neck: Trachea midline, no thyromegaly or masses palpated, and no cervical lymphadenopathy. Supple, full range of motion without nuchal rigidity, or vertebral point tenderness. Chest/axilla: Normal chest wall appearance and motion. Nontender with no deformity. No lesions are appreciated. Cardiovascular: Regular rate and rhythm with a normal S1 and S2. No gallops, murmurs, or rubs. Normal PMI, no JVD. No pulse deficits. Respiratory: Lungs have equal breath sounds bilaterally, positive bilateral wheezing, positive tachypnea positive dyspnea positive accessory muscle use Abdomen/GI: Soft, non-tender, with normal bowel sounds. No distension or tympany. No guarding or rebound. No evidence of tenderness throughout. Back: No spinal tenderness. No costovertebral tenderness. Skin: Warm, dry with normal turgor. Normal color with no rashes, no lesions, and no evidence of cellulitis. MS/ Extremity: Pulses equal, no cyanosis. Neurovascular intact. Full, normal range of motion. Neuro: Awake and alert, GCS 15, oriented to person, place, Cranial nerves II-XII grossly intact. Motor strength 5/5 in all extremities. Sensory grossly intact. Psych: Awake, alert, with orientation to person, place , patient is moderately intoxicated intoxication limits exam 04:59 ECG was reviewed by the Attending Physician. He is EKG at 0 239, sinus tachycardia 115 rightward axis Vital Signs: 02:27 BP 147 / 107; Pulse 132; Resp 20; Pulse Ox 93% on R/A; Weight 79.38 kg; Height 5 ft. 4 pf1 in. ; Pain 9/10; 03:53 BP 137 / 88; Pulse 107; Resp 21; Pulse Ox 94% on Nebulizer Mask; jb4 04:30 BP 137 / 97; Pulse 135; Resp 17; Pulse Ox 96% on 3 lpm NC; jb4 05:45 BP 139 / 91; Pulse 111; Resp 19; Pulse Ox 91% on 3 lpm NC; jb4 06:47 BP 149 / 96; Pulse 109; Resp 17; Pulse Ox 93% 3 lpm ; jb4 02:27 Body Mass Index 30.04 (79.38 kg, 162.56 cm) pf1 02:27 Pain Scale: Adult pf1 MDM: 02:37 Patient medically screened. sp4 04:43 ED course: CXR - Chest x-ray 06/28/2023 TECHNIQUE: Single AP view of the chest. sp4 FINDINGS: Lung volumes adequate. Cardiac silhouette is normal in size. No pneumothorax. No large pleural effusion. No focal consolidation. No acute bony finding. IMPRESSION: No evidence of acute cardiopulmonary disease. . 04:59 Differential diagnosis: Anxiety Reaction asthma, Bronchitis CHF exacerbation, Chronic sp4 Obstructive Pulmonary Disease Myocardial Infarction. Antibiotic administration: Not indicated. Data reviewed: vital signs, nurses notes, old medical records, lab test result(s), EKG, radiologic studies, plain films. Consideration of Admission/Observation Patient was admitted/placed on observation. Escalation of care including admission/observation considered. Management of patient was discussed with the following: Hospitalist: Admitting hospitalist. ED course: Patient at this time warrants admission secondary to persistent hypoxemia. Patient is stable on high flow nasal cannula. 10/05 02:35 Order name: BMP; Complete Time: 04:44 sp4 10/05 02:35 Order name: Blood Culture Adult (2) sp4 10/05 02:35 Order name: CBC with Diff; Complete Time: 04:44 sp4 10/05 02:35 Order name: CPK; Complete Time: 04:44 sp4 10/05 02:35 Order name: Hepatic Function; Complete Time: 04:44 sp4 10/05 02:35 Order name: Lipase; Complete Time: 04:44 sp4 10/05 02:35 Order name: Magnesium; Complete Time: 04:44 sp4 10/05 02:35 Order name: NT PRO-BNP; Complete Time: 04:44 sp4 10/05 02:35 Order name: PT-INR; Complete Time: 04:44 sp4 10/05 02:35 Order name: Ptt, Activated; Complete Time: 04:44 sp4 10/05 02:35 Order name: Troponin HS; Complete Time: 04:44 sp4 10/05 02:35 Order name: Alcohol Level; Complete Time: 04:44 sp4 10/05 02:37 Order name: COVID-19/FLU A+B; Complete Time: 04:44 sp4 10/05 02:38 Order name: ABG sp4 10/05 02:47 Order name: Lactate w/ 2H reflex if indic.; Complete Time: 04:44 km8 10/05 05:46 Order name: Comprehensive Metabolic Panel [facility] 10/05 05:46 Order name: CBC with Automated Diff [facility] 10/05 05:46 Order name: CBC with Automated Diff [facility] 10/05 05:46 Order name: Lipid Profile [facility] 10/05 05:46 Order name: Lipid Profile [facility] 10/05 05:46 Order name: Magnesium ED[facility] 10/05 05:46 Order name: Magnesium [facility] 10/05 05:46 Order name: Phosphorus [facility] 10/05 05:46 Order name: Phosphorus [facility] 10/05 02:35 Order name: XRAY CXR (1 view) [facility] 10/05 02:35 Order name: EKG; Complete Time: 02:36 [facility] 10/05 05:46 Order name: Patient Safety Orders [facility] 10/05 02:35 Order name: Cardiac monitoring; Complete Time: 02:46 [facility] 10/05 02:35 Order name: EKG - Nurse/Tech; Complete Time: 02:46 [facility] 10/05 02:35 Order name: IV Saline Lock; Complete Time: 02:46 [facility] 10/05 02:35 Order name: Labs collected and sent; Complete Time: 02:46 [facility] 10/05 02:35 Order name: O2 Per Protocol; Complete Time: 02:46 [facility] 10/05 02:35 Order name: O2 Sat Monitoring; Complete Time: 02:46 sp4 Administered Medications: 02:54 Drug: Albuterol Inhalation 2.5 mg Inhalation every 20 minutes x3 Route: Inhalation; jb4 02:54 Drug: Aspirin PO 325 mg PO once Route: PO; jb4 02:54 Drug: Ipratropium Inhalation Aerosol 0.5 mg Inhalation once; Every 20 min for a total jb4 of 3 treatments x3 Route: Inhalation; 02:54 Drug: MethylPrednisoLONE IVP 125 mg IVP once Route: IVP; Site: right antecubital; jb4 02:54 Drug: Ativan IVP 1 mg IVP once Route: IVP; Site: right antecubital; jb4 02:54 Drug: Thiamine IV 100 mg IV at bolus once Route: IV; Rate: bolus; Site: right jb4 antecubital; 02:55 Drug: Dextromethorphan-Guaifenesin PO Liquid 10 mg-100 mg/5 mL 10 ml PO once Route: PO; jb4 03:21 Drug: Albuterol Inhalation 2.5 mg Inhalation every 20 minutes x3 Route: Inhalation; jb4 03:21 Drug: Ipratropium Inhalation Aerosol 0.5 mg Inhalation once; Every 20 min for a total jb4 of 3 treatments x3 Route: Inhalation; 03:30 Drug: D5-1/2 NS IV 1000 ml IV at 125 ml/hr continuous Route: IV; Rate: 125 ml/hr; Site: jb4 left antecubital; 03:51 Drug: Albuterol Inhalation 2.5 mg Inhalation every 20 minutes x3 Route: Inhalation; jb4 03:51 Drug: Ipratropium Inhalation Aerosol 0.5 mg Inhalation once; Every 20 min for a total jb4 of 3 treatments x3 Route: Inhalation; 05:00 Drug: Ativan IVP 1 mg IVP once Route: IVP; Site: right antecubital; jb4 05:00 Drug: Ondansetron IVP 4 mg IVP once; over 2 minutes Route: IVP; Site: right antecubital;jb4 Disposition Summary: 10/05/23 04:47 Hospitalization Ordered Notes: Hospitalization Status: Inpatient Admission sp4 Provider: Rodo Donovan Location: Telemetry/[facility]Sur (Inpatient) sp4 Condition: Fair sp4 Problem: new sp4 Symptoms: have improved sp4 Bed/Room Type: Standard sp4 Room Assignment: 228(10/05/23 05:39) rv1 Diagnosis - COPD/ Chronic obstructive pulmonary disease with (acute) exacerbation sp4 - Chronic alcoholism, alcohol intoxication, COPD exacerbation with hypoxemia, chronic sp4 tobacco use disorder Forms: - Medication Reconciliation Form sp4 - SBAR form sp4 - Leadership Thank You Letter sp4 Signatures: Dispatcher [employer] Chivo De Los Santos RN RN jb4 Yary Chávez RN RN pf1 Sherin Mitchell rv1 Jose Crews MD MD sp4 Corrections: (The following items were deleted from the chart) 02:55 02:51 PMHx: home 02 3LNC PRN (Hypertension); pf1 pf1 05:39 04:47 sp4 rv1
[2023-10-05] MEDS ORDERED: ONDANSETRON 4 MG/2 ML VIAL ONE (05:07)
[2023-10-05] MEDS ORDERED: LORAZEPAM 1 MG TABLET PO PRN (05:31)
[2023-10-05] MEDS ORDERED: ONDANSETRON 4 MG/2 ML VIAL IV PRN (05:31)
[2023-10-05] MEDS ORDERED: FLUMAZENIL 0.1 MG/ML (5 mL VIAL) IV PRN (05:31)
[2023-10-05] MEDS ORDERED: ACETAMINOPHEN 500 MG TAB PO PRN (05:31)
--- NOTE | 2023-10-05 05:50 | P.HP ---
Certification for Inpatient Patient admitted to: Observation With expected LOS: <2 Midnights Practitioner: I am a practitioner with admitting privileges, knowledge of patient current condition, hospital course, and medical plan of care. Services: Services provided to patient in accordance with Admission requirements found in Title 42 Section 412.3 of the Code of Federal Regulations Patient History Date of Service: 10/05/23 Reason for admission: Shortness of breath History of Present Illness: 53-year-old gentleman with a history of chronic alcoholism and COPD presented to the emergency department with a complaint of sudden onset shortness of breath. Patient stated he woke up from sleep with shortness of breath. He reported he could not catch his breath and therefore presented to the emergency department. He denies any fever. He denies any chest pain. Patient states he uses 3 L of oxygen by nasal cannula as needed for shortness of breath at home. He was on 3 L by nasal cannula and saturating around 93%. Patient reported to be in respiratory distress on arrival in the ED. Chest x-ray showed no acute disease. Blood work showed elevated lactate which is likely secondary to hypoxemia. No leukocytosis. Alcohol level is 248. Patient is a chronic drinker and endorsed binging on alcohol last night. He was given multiple breathing treatment in the ED with partial improvement in his shortness of breath. Patient is hospitalized for further management. Allergies lisinopril Allergy (Verified 04/26/22 13:11) Shortness of breath BC powder Allergy (Mild, Uncoded 04/26/22 13:10) Hives Lisinopril Allergy (Mild, Uncoded 04/26/22 13:10) Shortness of breath Home Medications: predniSONE [Prednisone*] 10 mg PO DAILY #30 tab 04/28/22 Pantoprazole Sodium 40 mg PO BID #60 tab 11/24/22 Budesonide/Formoterol Fumarate [Symbicort 160-4.5 Mcg Inhaler] 2 puff IH DAILY 06/23/23 Spironolactone [Aldactone*] 25 mg PO DAILY 06/23/23 Tiotropium [place] [Spiriva] 2 puff IH DAILY 06/23/23 Amlodipine [Norvasc*] 10 mg PO DAILY 06/24/23 chlordiazePOXIDE HCl [Librium*] See Rx Instructions .ROUTE .COMPLEX #6 cap 06/26/23 predniSONE [Prednisone] 20 mg PO BID 5 Days #10 tab 06/26/23 - Past Medical/Surgical History Diabetic: No -: Hypertension -: COPD on chronic steroids/home O2 -: Tobacco abuse -: Alcohol abuse -: GERD -: Obesity -: BUD -: 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 - Family History Mother -: Diabetes, Cancer Notes: colon cancer Father -: Lung disease Notes: COPD - Social History Alcohol use: Yes CD- Drugs: No Caffeine use: No Review of Systems Other: Except as documented, all other systems reviewed and negative. Physical Examination - Physical Exam General: Alert, In no apparent distress, Oriented x3 HEENT: Mucous membr. moist/pink, Sclerae nonicteric Neck: Supple, JVD not distended Respiratory: Clear to auscultation bilaterally, Diminished Cardiovascular: No edema, Normal S1 S2, Other (Tachycardia) Gastrointestinal: Normal bowel sounds, Soft and benign, Non-distended, Other (Obese abdomen) Musculoskeletal: No swelling, No tenderness Integumentary: No rashes, No cyanosis Neurological: Normal speech, Normal strength at 5/5 x4 extr Lymphatics: No axilla or inguinal lymphadenopathy - Studies Laboratory Data (last 24 hrs) 10/05/23 10/05/23 10/05/23 02:45 02:45 02:45 WBC 10.30 Hgb 16.7 Hct 49.7 H Plt Count 278 PT 9.3 L INR 0.85 APTT 35.6 Sodium 139 Potassium 3.8 BUN 5 L Creatinine 0.76 Glucose 100 Magnesium 2.3 Total Bilirubin 0.4 AST 20 ALT 24 Alkaline Phosphatase 57 Lipase 40 Assessment and Plan - Problems (Diagnosis) (1) COPD exacerbation Onset Date: 09/07/18 Current Visit: No Status: Acute (2) Chronic respiratory failure with hypoxia Current Visit: Yes Status: Acute (3) Alcohol intoxication Current Visit: No Status: Acute (4) HTN (hypertension) Onset Date: 02/11/18 Current Visit: No Status: Chronic - Plan Place patient under observation. Treat COPD exacerbation with IV steroids, scheduled nebs. Supplemental oxygen as needed CIWA for alcohol withdrawal Elevated lactic acid likely secondary to hypoxia. Telemetry Repeat lactic acid. Hydrate with IV normal saline. Continue home antihypertensives. - Advance Directives Does patient have a Living Will: No Does patient have a Durable POA for Healthcare: No
[2023-10-05] MEDS ORDERED: LORAZEPAM 1 MG TABLET PO SCH (06:00)
[2023-10-05] MEDS ORDERED: METHYLPREDNISOLONE 40 MG INJ IV SCH (06:00)
[2023-10-05] MEDS ORDERED: IPRATROPIUM BROM 0.5MG/2.5ML NEB SCH (08:00)
[2023-10-05] MEDS ORDERED: ALBUTEROL 2.5 MG/3 ML NEB SOL NEB SCH (08:00)
[2023-10-05 08:35] LABS: Albumin 4.2 g/dL (3.4-5.0); Bilirubin Total 0.3 mg/dL (0.2-1.0); Potassium 3.9 mEq/L (3.5-5.1); Protein, Total 7.8 g/dL (6.4-8.2)
[2023-10-05] MEDS ORDERED: FOLIC ACID 1 MG TABLET PO SCH (09:00)
[2023-10-05] MEDS ORDERED: THIAMINE HCL 100 MG TABLET PO SCH (09:00)
[2023-10-05] MEDS ORDERED: ENOXAPARIN 40 MG/0.4 ML SQ SCH (09:00)
[2023-10-05 10:57] VITALS: BMI 29.7
[2023-10-05 11:13] VITALS: O2SAT 94
[2023-10-05 11:45] VITALS: BP 181/91; TEMP 96.8
[2023-10-05] MEDS ORDERED: INFLUENZA VACCINE (for 6+ mo) 0.5 ML DOSE IMVAC ONE (12:00)
--- NOTE | 2023-10-05 14:13 | RAD REPORT ---
EXAM DESCRIPTION: Single AP view of the chest. CLINICAL HISTORY: CHEST PAIN COMPARISON: Chest x-ray 06/28/2023 TECHNIQUE: Single AP view of the chest. FINDINGS: Lung volumes adequate. Cardiac silhouette is normal in size. No pneumothorax. No large pleural effusion. No focal consolidation. No acute bony finding. IMPRESSION: No evidence of acute cardiopulmonary disease. Electronically signed by: Ulysses Anthony MD 10/05/2023 02:58 AM SPECIAL TAX AUDITOR Due to temporary technical issues with the PACS/Fluency reporting system, reports are being signed by the in house radiologist without review as a courtesy to ensure prompt reporting. The interpreting r adiologist is fully responsible for the content of the report.
--- NOTE | 2023-10-05 17:57 | P.PN ---
Date of Service: 10/05/23 Patient seen on rounds this morning with some slight increased work of breathing while sitting on bed stated he felt much better and ready to go home discussed recent lab result noting rising lactic acidosis and will continue to trend and monitor patient stated ok. Repeat lactate was even higher. As I was on my way to inform patient that it was further elevated I was informed patient had removed his IV and eloped.
[2023-10-07] MEDS ORDERED: LORAZEPAM 1 MG TABLET PO SCH (06:00)
--- NOTE | 2023-10-08 15:30 | EKG ---
Test Date: 2023-10-05 Test Time: 02:39:18 Laundry Attendant: JOSE ENRIQUE MEASUREMENT RESULTS: Intervals: Rate: 115 DC: 136 QRSD: 98 QT: 358 QTc: 495 [place]: P: 80 DC: 136 QRS: 107 T: 73 INTERPRETIVE STATEMENTS: Sinus tachycardia Rightward axis Incomplete right bundle branch block ST & T wave abnormality, consider anterior ischemia Abnormal ECG Compared to ECG 07/13/2023 15:08:45 Right-axis deviation now present ST (T wave) deviation now present Possible ischemia now present Sinus rhythm no longer present Electronically Signed On 10-08-23 15:16:43 DERRICK BUILDER by Rosalino Albert
== END 2023-10-05 12:15 | disposition left against medical advice (07) ==
LOC: ER 02:21 → ERHOLD 05:29 → 2ND 06:29
PROVIDERS: ADMIT Internal Medicine; ATTEND Hospitalist
DX: J44.1 Chronic obstructive pulmonary disease with (acute) exacerbation (principal); J96.11 Chronic respiratory failure with hypoxia; E87.20 Acidosis, unspecified; F10.229 Alcohol dependence with intoxication, unspecified; Y90.8 Blood alcohol level of 240 mg/100 ml or more; Z11.52 Encounter for screening for COVID-19; Z88.8 Allergy status to other drugs, medicaments and biological substances; Z23 Encounter for immunization; Z53.29 Procedure and treatment not carried out because of patient's decision for other reasons
CPT/HCPCS: 93005; 87040 ×2; 85025; 80048; 36415; 83735; 82550; 85610; 80076; 83605 ×4; 85730; 84484; 83690; 80053; 83880; 0240U; 71045; 94640; 82805; 94760 ×2; 96375; 96374; 99284; 82077; J3411; J7613 ×2; J7644 ×2; J1650; J2930; J2405; J7799; G0378 ×2

== ENCOUNTER 2023-10-12 01:08 | Observation (INO) | payer OTHER ==
--- OUTSIDE RECORDS SUMMARY | 2023-10-12 01:12 | XMS REPORT | Continuity of Care Document ---
:1970 Author Organization [facility] t Address 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 ON Problems Condition Condition Condition Status [...] (BMI 5-16 ity of 30-39.9) 30-39.9) 00:00: [address] Allergies, Adverse Reactions, Alerts Allergy Allergy Status Severity Reaction(s) Onset Inactive Treating Comm ents Source Name Type Date Date Clinician Lisinopr Propensi Active Anaphylaxis U nivers il ty to 5-16 ity of adverse 00:00: [place] reaction 00 [facility] [place] LISINOPR DRUG Active Anaphylaxis 2017- Uni vers [place] INGREDI 5-16 ity of 00:00: [place] 00 Medical Branch Social History Social Habit Start Date Stop Date Quantity Comments Source History of Smokes tobacco University of tobacco use daily [facility] Exposure to 2022-10-04 2022-10-14 Not sure [facility] SARS-CoV-2 00:00:00 10:25:00 [facility] (event) [place] Alcohol intake 2022-03-09 2022-03-09 4.29 /d University of 00:00:00 00:00:00 [facility] Tobacco use and 2018-03-24 2018-03-24 User of smokeless Un iversity of exposure 00:00:00 00:00:[address] [facility] Tobacco Comment 2018-03-24 2018-03-24 trying to quit Unive rsity of 00:00:00 00:00:00 [facility] Sex Ass[birth year] At [birth year] Universit y of 00:00:00 00:00:00 [facility] Smoking Status Start Date Stop Date Source Smokes tobacco daily 2018-03-24 00:00:[address] [facility] Medications Ordered Filled Start Stop Current Ordering Indication Dosage Frequency Signature Comments Components Source Medication Medication Date Date Medication? Clinician (SIG) Name Name iopamidol 2021-11- No [id number] 70mL 70 mL, U nivers (ISOVUE 2-06 [...] 10/14/22 at 1045, Routine levoFLOXaci 2021-11 Yes [id number] 750mg Take 1 Univers n 750 mg [...] 0530, solution 3 Routine mL albuterol Yes [id number] 2{puff} Inhale 2 Univers 90 02-20 Puffs ity of mcg/actuati 00:00: every 4 Sa[place] as on inhaler 00 (four) Medical hours as Branch needed for Wheezing or Shortness of Breath. albuterol Yes [id number] 2.5mg Inhale 3 Univers 2.5 mg /3 4-14 mL every 4 ity of mL (0.083 00:00: (four) [place] %) 00 hours. May Medical nebulizer also Branch solution nebulize one extra every 6 hours. budesonide- Yes [id number] 2{puff} Inhale 2 Univers formoteroL 4-14 Puffs 2 ity of 160-4.5 00:00: (two) [place] mcg/actuati 00 times Medical on inhaler daily. Branch triamterene Yes [id number] 1{tbl} Take 1 Univers -hydrochlor 4-14 tablet by ity of othiazid 00:00: mouth [place] 37.5-25 mg 00 daily. Medical tablet Branch chlordiazeP 0 Yes [id number] 25mg Take 1 Univers OXIDE 25 mg 4-14 capsule by it y of capsule 00:00: mouth [place] 00 every 6 Medical (six) Branch hours as needed for Anxiety, Agitation, Heart Rate => 100 or Detox. predniSONE 0 Yes [id number] TAKE ONE Univers 10 mg 4-14 TABLET BY ity of tablet 00:00: MOUTH [place] 00 DAILY Medical Branch albuterol 0 Yes [id number] 2{puff} Inhale 2 Univers 90 4-14 Puffs ity of mcg/actuati 00:00: every 4 Sa[place] as on inhaler 00 (four) Medical hours as Branch needed for Wheezing or Shortness of Breath. albuterol 0 Yes [id number] 2.5mg Inhale 3 Univers 2.5 mg /3 4-14 mL every 4 ity of mL (0.083 00:00: (four) [place] %) 00 hours. May Medical nebulizer also Branch solution nebulize one extra every 6 hours. budesonide- 2021- Yes [id number] 2{puff} Inhale 2 Univers formoteroL 4-14 Puffs 2 ity of 160-4.5 00:00: (two) [place] mcg/actuati 00 times Medical on inhaler daily. Branch triamterene 0 Yes [id number] 1{tbl} Take 1 Univers -hydrochlor 4-14 tablet by ity of othiazid 00:00: mouth [place] 37.5-25 mg 00 daily. Medical tablet Branch chlordiazeP Yes [id number] 25mg Take 1 Univers OXIDE 25 mg 4-14 capsule by it y of capsule 00:00: mouth [place] 00 every 6 Medical (six) Branch hours as needed for Anxiety, Agitation, Heart Rate => 100 or Detox. predniSONE Yes [id number] TAKE ONE Univers 10 mg 4-14 TABLET BY ity of tablet 00:00: MOUTH [place] 00 DAILY Medical Branch albuterol Yes [id number] 2{puff} Inhale 2 Univers 90 4-14 Puffs ity of mcg/actuati 00:00: every 4 [place] as on inhaler 00 (four) Medical hours as Branch needed for Wheezing or Shortness of Breath. albuterol Yes [id number] 2.5mg Inhale 3 Univers 2.5 mg /3 4-14 mL every 4 ity of mL (0.083 00:00: (four) [place] %) 00 hours. May Medical nebulizer also Branch solution nebulize one extra every 6 hours. budesonide- Yes [id number] 2{puff} Inhale 2 Univers formoteroL 4-14 Puffs 2 ity of 160-4.5 00:00: (two) [place] mcg/actuati 00 times Medical on inhaler daily. Branch triamterene Yes [id number] 1{tbl} Take 1 Univers -hydrochlor 4-14 tablet by ity of othiazid 00:00: mouth [place] 37.5-25 mg 00 daily. Medical tablet Branch chlordiazeP Yes [id number] 25mg Take 1 Univers OXIDE 25 mg 4-14 capsule by it y of capsule 00:00: mouth [place] 00 every 6 Medical (six) Branch hours as needed for Anxiety, Agitation, Heart Rate => 100 or Detox. predniSONE Yes [id number] TAKE ONE Univers 10 mg 4-14 TABLET [...] by mouth ity of tablet 16:32: at [place] [address] bedtime. Medical Branch gabapentin 2018-0 Yes 100mg Take 100 Un odalys 100 mg 5-18 mg by ity of capsule 16:32: mouth 2 [place] [address] (two) Medical times Branch daily as needed ([facility] pain). foLIC acid 2018-0 Yes 1mg Take 1 mg Un odalys 1 mg tablet 5-18 by mouth ity of 16:32: daily. [address] triamterene 2018-0 Yes 1{capsu Take 1 U nivers -hydrochlor 5-18 le} capsule by it y of othiazide 16:32: mouth [place] 37.5-25 mg 14 every Medical per capsule morning. Bran ch amLODIPine 2018-0 Yes 10mg Take 10 mg U nivers 10 mg 5-18 by mouth ity of tablet 16:32: at [place] [address] bedtime. Medical Branch gabapentin 2018-0 Yes 100mg Take 100 Un odalys 100 mg 5-18 mg by ity of capsule 16:32: mouth 2 [place] [address] (two) Medical times [place] daily as needed ([facility] pain). foLIC acid 2018-0 Yes 1mg Take 1 mg Un odalys 1 mg tablet 5-18 by mouth ity of 16:32: daily. [address] triamterene 2018-0 Yes 1{capsu Take 1 U nivers -hydrochlor 5-18 le} capsule by it y of othiazide 16:32: mouth [place] 37.5-25 mg 14 every Medical per capsule morning. Bran ch amLODIPine 2018-0 Yes 10mg Take 10 mg U nivers 10 mg 5-18 by mouth ity of tablet 16:32: at [place] [address] bedtime. Medical Branch gabapentin 2018-0 Yes 100mg Take 100 Un odalys 100 mg 5-18 mg by ity of capsule 16:32: mouth 2 [place] [address] (two) Medical times Branch daily as needed ([facility] pain). foLIC acid 2018-0 Yes 1mg Take 1 mg Un odalys 1 mg tablet 5-18 by mouth ity of 16:32: daily. [address] budesonide- 2018-0 Yes 2{puff} Inhale 2 [...] 2022-10-14 19:43:00 111 mm[Hg] Univer sity of [facility] Diastolic blood 2022-10-14 19:43:00 74 mm[Hg] [facility] Heart rate 2022-10-14 19:43:00 98 /min [facility] Body temperature 2022-10-14 19:43:[address] [facility] Respiratory rate 2022-10-14 19:43:00 22 /min [facility] Oxygen saturation in 2022-10-14 19:43:00 94 /min [facility] Arterial blood by [facility] Pulse oximetry Branch Body height 2022-10-14 16:13:00 162.6 cm [facility] Body weight 2022-10-14 16:13:00 81.647 kg [facility] BMI 2022-10-14 16:13:00 30.90 kg/m2 [facility] Systolic blood 2022-03-12 10:13:00 119 mm[Hg] Univer sity of [facility] Diastolic blood 2022-03-12 10:13:00 75 mm[facility]Hg] [facility] 2022-03-12 10:13:00 105 /min [facility] Body temperature 2022-03-12 10:13:00 37.28 Debbie [facility] 2022-03-12 10:13:00 19 /min [facility] Body height 2022-03-12 10:13:00 162.6 cm Universi ty [facility] Body weight 2022-03-12 10:13:00 99.791 kg Universi ty [facility] BMI 2022-03-12 10:13:00 37.76 kg/m2 [facility] Oxygen saturation in 2022-03-12 10:13:00 96 /min [place] of Arterial blood by [facility] Pulse oximetry Branch Systolic blood 2022-02-20 11:57:00 155 mm[Hg] Tiffanie sity of [facility] Diastolic blood 2022-02-20 11:57:00 88 mm[Hg] [facility] Heart rate 2022-02-20 11:57:00 105 /min [facility] Respiratory rate 2022-02-20 11:57:00 18 /min [facility] Oxygen saturation in 2022-02-20 11:57:00 100 /min [facility] Arterial blood by [facility] Pulse oximetry Branch Body temperature 2022-02-20 09:25:[address] [facility] Body height 2022-02-20 09:25:00 162.6 cm Universi ty [facility] Body weight 2022-02-20 09:25:00 96.163 kg [facility] BMI 2022-02-20 09:25:00 36.39 kg/m2 [facility] Procedures Procedure Date / Time Performing Clinician Source Performed CT ABDOMEN PELVIS W 2022-10-14 17:33:00 Melinda Hastings [facility] CONTRAST [facility] XR CHEST 1 VW 2022-10-14 17:10:37 Melinda Hastings [facility] TROPONIN I 2022-10-14 16:37:00 Melinda Hastings [facility] COMP. METABOLIC PANEL 2022-10-14 16:37:00 Melinda Hastings [facility] ([id number]) [facility] CBC WITH DIFF 2022-10-14 16:37:00 Melinda Hastings [facility] PROTHROMBIN TIME / INR 2022-10-14 16:37:00 Melinda Hastings [facility] URINALYSIS 2022-10-14 16:37:00 [facility] o f [facility] N-TERMINAL PRO-BNP 2022-10-14 16:37:[address] [facility] CONSENT/REFUSAL FOR 2022-10-14 15:56:36 Doctor Unassigned, No Un iversity of [place] DIAGNOSIS AND TREATMENT Name [facility] Branch CONSENT/REFUSAL FOR 2022-03-12 10:03:12 Doctor Unassigned, No Un iversity [facility] DIAGNOSIS AND TREATMENT Name [facility] XR CHEST 1 VW 2022-02-20 09:59:00 Christy Shaw [facility] LIPASE 2022-02-20 09:30:00 Christy Shaw [facility] TROPONIN I 2022-02-20 09:30:00 Christy Shaw [facility] COMP. METABOLIC PANEL 2022-02-20 09:30:00 Christy Shaw [facility] ([id number]) [facility] CBC WITH DIFF 2022-02-20 09:30:00 Christy Shaw [facility] N-TERMINAL PRO-BNP 2022-02-20 09:30:00 Christy Shaw [facility] NOTICE OF PRIVACY 2022-02-20 09:15:02 Doctor Unassigned, No Univ ersity [facility] PRACTICES Name [facility] CONSENT/REFUSAL FOR 2022-02-20 09:14:47 Doctor Unassigned, No Un iversity [facility] DIAGNOSIS AND TREATMENT Name [facility] Encounters Start End Encounter Admission Attending Care Care Encounter Source Date/Time Date/Time Type Type Clinicians Facility Department ID 2023-07-15 2023-07-15 Outpatient MARIA ELENA LOBO [id number] Maria Elena 00:00:00 00:00:00 DARIEN brunson 2023-06-16 2023-06-16 Outpatient MARIA ELENA LOBO [id number] Maria Elena 11:30:00 11:30:00 DARIEN brunson 2023-05-18 2023-05-18 Outpatient MARIA ELENA CHAN [id number] Maria Elena 00:00:00 00:00:00 MARIA ELENA brunson 2022-10-14 2022-10-[address] [facility] ERT [id number] Univers 10:07:00 14:39:00 MELINDA garcia [facility] 2022-10-14 2022-10-[address] [facility] [id number] Univers 10:07:00 14:39:00 Melinda SMITH [id number] i ty [facility] [id number] [facility] [id number] [address] 2022-03-12 2022-03-12 [id number] Univers 05:15:00 06:41:00 CHRISTY [facility] 2022-03-12 2022-03-12 [facility] [id number] Univers 05:15:00 06:41:00 Christy CARPENTERKAROLYN [id number] ity [facility] [id number] [facility] [id number] [address] 2022-02-20 2022-02-20 Emergency [facility] [id number] Univers 04:17:00 07:16:00 CHRISTY [facility] 2022-02-20 2022-02-20 [facility] [id number] Univers 04:17:00 07:16:00 Christy CARPENTERKAROLYN [id number] ity [facility] [id number] [facility] [id number] [address] 2021-02-03 2021-02-03 Outpatient R PINEDA, [facility] [id number] Univers 11:10:00 11:10:00 DENISE [facility] 2021-01-13 2021-01-13 Outpatient [facility] [id number] Univers 11:20:00 11:20:00 ity [facility] 2020-11-10 2020-11-10 Outpatient Sarika ADAMS [facility] [id number] Univers 08:20:00 08:20:00 KARLEY garcia [facility] Results Test Description Test Time Test Comments Results Result Comments Source TROPONIN I 2022-02-20 10:16:22 Test Item Value Reference Range Interpretation Comme nts TROPONIN I (test code = 0.007 ng/mL See_Comment [Au tomated message] The [id number]) system which ge nerated this result tra [...] biotin. Lab Interpretation Normal (test code = 47902-9) [id number] 10:13:01 Test Item Value Reference Range Interpretation Comments NT-proBNP (test code 52 pg/mL See_Comment [Autom ated = 0210279360) message] The system which generated this result transmitted reference range : <=125. The reference range was not used to interpret this result as normal/abnormal . LOUISE (test code = LOUISE) Biotin has been reported to cause a negative bias, interpret results relative to patient's use of biotin. Lab Interpretation Normal (test code = 47653-2) [facility] (04101)2022-02-20 10:04:02 Test Item Value Reference Range Interpretation Comments NA (test code = 137 mmol/L 135-145 5691779008) K (test code = 3.6 mmol/L 3.5-5.0 5958675276) CL (test code = 99 mmol/L 98-108 3168452969) CO2 TOTAL (test code = 25 mmol/L 23-31 6969117691) AGAP (test code = 2-16 4428116778) BUN (test code = 6 mg/dL 7-23 L 6017248409) GLUCOSE (test code = 88 mg/dL 70-110 3584838174) CREATININE (test code = 0.55 mg/dL 0.60-1.25 L 0651409831) TOTAL BILI (test code = 0.8 mg/dL 0.1-1.5 8007214512) CALCIUM (test code = 8.9 mg/dL 8.6-10.6 0672230396) T PROTEIN (test code = 7.5 g/dL 6.3-8.2 0392303065) ALBUMIN (test code = 4.8 g/dL 3.5-5.0 1852479658) ALK PHOS (test code = 113 U/L 34-122 2978348699) ALTv (test code = 84 U/L 5-50 H 1742-6) AST(SGOT) (test code = 107 U/L 13-40 H 6424380267) eGFR (test code = mL/min/1.73m2 0782879159) LOUISE (test code = LOUISE) Association of [...] tests). Lab Interpretation Abnormal (test code = 45059-8) [facility] [id number] 10:03:21 Test Item Value Reference Range Interpretation Comments LIPASE (test code = 3529702349) 193 U/L 0-220 Lab Interpretation (test code = Normal 59376-3) [facility] [id number] 09:39:17 Test Item Value Reference Range Interpretation Comments WBC (test code = See_Comment [Automated 5690-2) message] The sy stem which generated this [...] RDW-SD (test code = 44.4 fL 38.5-51.6 37650-9) RDW-CV (test code = 11.9 % 12.1-15.4 L 788-0) PLT (test code = See_Comment [Automated 777-3) message] The sy stem which generated this result transmitted reference range : 150 - 328 10*3/ ?L. The reference r ernie was not used to interpret this result as normal/abnormal . MPV (test code = 9.2 fL 9.8-13.0 L 49088-0) NRBC/100 WBC (test See_Comment [Automat ed code = 9649267204) message] The system which generated this result transmitted reference range : 0.0 - 10.0 /100 WBCs. The refer ence range was not u sed to interpret th is result as normal/abnormal . NRBC x10^3 (test code <0.01 See_Comment [Auto mated = 7724811843) message] The s ystem which generated this result transmitted reference range : 10*3/?L. The reference range was not used to interpret this result as normal/abnormal . GRAN MAT (NEUT) % 69.9 % (test code = 770-8) IMM GRAN % (test code 1.50 % = 0085966787) LYMPH % (test code = 18.9 % 736-9) MONO % (test code = 7.0 % 5905-5) EOS % (test code = 1.9 % 713-8) BASO % (test code = 0.8 % 706-2) GRAN MAT x10^3(ANC) 7.15 10*3/uL 1.99-6.95 H (test code = 8517617646) IMM GRAN x10^3 (test 0.15 10*3/uL 0.00-0.06 H code = 0988396744) LYMPH x10^3 (test code 1.93 10*3/uL 1.09-3.23 = 731-0) MONO x10^3 (test code 0.72 10*3/uL 0.36-1.02 = 742-7) EOS x10^3 (test code = 0.19 10*3/uL 0.06-0.53 711-2) BASO x10^3 (test code 0.08 10*3/uL 0.01-0.09 = 704-7) Lab Interpretation Abnormal (test code = 25407-3) [facility]"
[2023-10-12] MEDS ORDERED: LORazepam 2 MG/ML VIAL ONE ×6 (01:42→14:32)
[2023-10-12] MEDS ORDERED: NA CHLORIDE 0.9% 1,000 ML ONE ×2 (02:06→04:54)
[2023-10-12] MEDS ORDERED: THIAMINE 200 MG/2 ML INJ ONE ×2 (02:06→04:54)
[2023-10-12 02:11] LABS: Absolute Lymphocytes (CBC) 3.2 K/uL (0.7-4.9); Hematocrit 47.5 % (39.6-49.0); Lymphocytes % 30.4 % (15.3-44.8); MCV 103.5 fL (80-100); Platelets 221 thou/uL (152-406); RBC Red Blood Cell Count 4.59 M/uL (4.33-5.43)
[2023-10-12 02:32] LABS: Albumin 4.3 g/dL (3.4-5.0); Bilirubin Direct 0.1 mg/dL (0-0.2); Bilirubin Indirect, Calculated 0.3 mg/dL (0.2-0.8); Bilirubin Total 0.4 mg/dL (0.2-1.0); Potassium 3.7 mEq/L (3.5-5.1); Protein, Total 8.3 g/dL (6.4-8.2); Troponin High Sensitivity 6.4 pg/mL (<58.9)
--- NOTE | 2023-10-12 02:43 | ER ---
Nurse's Notes [facility] Name: Randy Briones Age: 53 yrs Sex: Male : 1970 Arrival Date: 10/12/2023 Time: 01:08 Bed 20 Private MD: Diagnosis: Alcohol dependence with withdrawal;Essential (primary) hypertension;Chest pain, unspecified Presentation: 10/12 01:08 Chief complaint: Patient states: c/o last alcoholic drink being yesterday at 1300. C/o la4 shaking, nausea, and vomiting. Pt also reports hx of severe COPD. Coronavirus screen: Vaccine status: Patient reports receiving the 2nd dose of the covid vaccine. Ebola Screen: Patient negative for fever greater than or equal to 101.5 degrees Fahrenheit, and additional compatible Ebola Virus Disease symptoms Patient denies exposure to infectious person. Patient denies travel to an Ebola-affected area in the 21 days before illness onset. No symptoms or risks identified at this time. 01:08 Method Of Arrival: Ambulatory la4 02:00 Initial Sepsis Screen: Does the patient meet any 2 criteria? RR > 20 per min. No. la4 Patient's initial sepsis screen is negative. Does the patient have a suspected source of infection? No. Patient's initial sepsis screen is negative. Risk Assessment: Do you want to hurt yourself or someone else? Patient reports no desire to harm self or others. Onset of symptoms was October 11, 2023. 02:00 Acuity: CANDACE 2 la4 Triage Assessment: 02:10 General: Appears distressed, uncomfortable, Behavior is cooperative, appropriate for la4 age. 02:10 Pain: Complains of pain in anterior aspect of right upper chest, anterior aspect of la4 left upper chest, mid-sternal area, right breast and left breast Pain does not radiate. Pain currently is 8 out of 10 on a pain scale. Quality of pain is described as aching, heavy, Pain began suddenly, Is continuous. Neuro: No deficits noted. Macario Agitation-Sedation Scale (RASS): +1 Restless Level of Consciousness is awake, alert, obeys commands, Oriented to person, place, time, situation. Cardiovascular: Heart tones S1 S2 Capillary refill < 3 seconds Pulses are all present. Rhythm is regular. Cardiovascular: Reports chest pain, diaphoresis, shortness of breath, Chest pain is described as diffuse, quality is heaviness, is located in anterior. Respiratory: No deficits noted. Airway is patent Trachea midline Respiratory effort is even, unlabored, Respiratory pattern is regular, symmetrical, Breath sounds are clear bilaterally. GI: No deficits noted. No signs and/or symptoms were reported involving the gastrointestinal system. Bowel sounds present X 4 quads. : No deficits noted. No signs and/or symptoms were reported regarding the genitourinary system. Musculoskeletal: No deficits noted. No signs and/or symptoms reported regarding the musculoskeletal system. Circulation, motion, and sensation intact. Capillary refill < 3 seconds, is brisk, Range of motion: intact in all extremities. Historical: - Allergies: 02:46 Lisinopril; la4 - Home Meds: 02:46 Prednisone Oral [Active]; Advair Diskus 250-50 mcg/dose Inhl dsdv [Active]; albuterol la4 sulfate 2.5 mg /3 mL (0.083 %) Inhl nebu 3 mL 3 times per day [Active]; montelukast 10 mg Oral tab 1 tab once daily [Active]; gabapentin 100 mg Oral cap 3 caps 3 times per day [Active]; Nexium 40 mg Oral cpDR 1 cap 2 times per day [Active]; Norvasc 10 mg Oral tab once daily [Active]; - PMHx: 02:46 Alcoholism; COPD; home 02 3LNC PRN; Hypertension; la4 - PSHx: 02:46 Amputation of left index finger; la4 - Immunization history:: Adult Immunizations up to date. - Social history:: Smoking status: Patient reports the use of cigarette tobacco products, smokes one-half pack cigarettes per day. - Code Status:: Full code. Screenin:53 [facility] ED Fall Risk Assessment (Adult) History of falling in the last 3 months, la4 including since admission No falls in past 3 months (0 pts) Confusion or Disorientation No (0 pts) Intoxicated or Sedated No (0 pts) Impaired Gait No (0 pts) Mobility Assist Device Used No (0 pt) Altered Elimination No (0 pt) Score/Fall Risk Level 0 - 2 = Low Risk Oriented to surroundings, Provided non-skid footwear. Abuse screen: Denies threats or abuse. Denies injuries from another. Nutritional screening: No deficits noted. Tuberculosis screening: No symptoms or risk factors identified. Assessment: 02:53 Reassessment: Patient appears in no apparent distress at this time. No changes from la4 previously documented assessment. Reassessment: Pt able to sleep at this time. O2 dropped to 89% and placed on 3LNC and SPO2 automatically increased to 96%. Pt is on 3LNC which he is on at home. Pain: Complains of pain in anterior aspect of right upper chest, anterior aspect of left upper chest, mid-sternal area, right breast and left breast Vital Signs: 01:08 BP 156 / 106; Pulse 135; Resp 26; Pulse Ox 96% on R/A; Pain 8/10; la4 01:30 BP 155 / 106; Pulse 116; Resp 26; Pulse Ox 99% on R/A; la4 01:30 BP 155 / 106; Pulse 116; Resp 22; Pulse Ox 96% on R/A; la4 01:45 BP 174 / 117; Pulse 118; Resp 24; Pulse Ox 96% on R/A; la4 01:45 BP 174 / 117; Pulse 123; Resp 21; Pulse Ox 99% ; la4 02:00 BP 181 / 159; Pulse 106; Resp 26; Pulse Ox 96% ; la4 02:00 BP 181 / 159; Pulse 127; Resp 22; Pulse Ox 95% ; la4 02:10 BP 156 / 106; Pulse 122; Resp 18; Pulse Ox 100% on R/A; la4 02:15 BP 175 / 104; Pulse 114; Resp 26; Pulse Ox 98% on R/A; la4 02:15 BP 175 / 105; Pulse 115; Resp 22; Pulse Ox 94% ; la4 02:30 BP 188 / 100; Pulse 107; Resp 22; Pulse Ox 96% on 3 lpm NC; la4 02:45 BP 161 / 104; Pulse 106; Resp 22; Pulse Ox 95% on 3 lpm NC; la4 03:16 BP 140 / 127; Pulse 109; Resp 20; Pulse Ox 97% ; la4 04:00 BP 184 / 101; Pulse 105; Resp 20; Pulse Ox 99% ; la4 06:00 BP 157 / 91; Pulse 85; Resp 20; Pulse Ox 93% ; la4 07:14 BP 153 / 114; Pulse 95; Resp 20; Pulse Ox 97% ; la4 01:08 Pain Scale: Adult la4 01:08 chest pain la4 Shani Coma Score: 02:53 Eye Response: spontaneous(4). Motor Response: obeys commands(6). Verbal Response: la4 oriented(5). Total: 15. ED Course: 01:12 Patient arrived in ED. ag3 01:13 Aren Benson DO is Attending Physician. ms3 01:29 Inserted saline lock: 20 gauge in right forearm, using aseptic technique. Blood nw1 collected. 01:58 Dolores Portillo RN is Primary Nurse. la4 02:08 XRAY Chest (1 view) In Process Unspecified. EDMS 02:10 Arm band placed on right wrist. Patient placed in an exam room, on a stretcher, on la4 architectural engineer, on pulse oximetry. EKG completed in triage. Results shown to MD. 02:42 Satnam Martin MD is Hospitalizing Provider. ms3 02:46 Triage completed. la4 02:53 No provider procedures requiring assistance completed. la4 02:53 Patient has correct armband on for positive identification. Placed in gown. Bed in low la4 position. Call light in reach. Side rails up X2. Provided Education on: Plan of care. Administered Medications: 01:28 Drug: Ativan IVP 2 mg IVP once Route: IVP; Site: right forearm; nw1 03:22 Follow up: Response: No adverse reaction; Anxiety unchanged la4 02:15 Drug: Ativan IVP 2 mg IVP once Route: IVP; Site: right forearm; la4 02:15 Follow up: BP 175 / 104; Pulse 114 bpm; Resp 26 bpm; Pulse Ox 98% RA la4 03:23 Follow up: Response: Anxiety decreased la4 02:23 Drug: Ativan IVP 2 mg IVP once Route: IVP; Site: left forearm; la4 03:22 Follow up: Response: No adverse reaction; Anxiety unchanged la4 02:23 Drug: Thiamine PO 100 mg PO once Route: PO; la4 03:22 Follow up: Response: No adverse reaction la4 02:23 Drug: NS 0.9% IV 1000 ml IV at 1 bolus Per protocol; 1000 mL bolus Route: IV; Rate: 1 la4 bolus; Site: right forearm; 03:21 Follow up: Response: No adverse reaction; IV Status: Completed infusion; IV Intake: la4 500ml 03:27 CANCELLED (Duplicate Order): ativan2 mg IVP once nw1 Medication: 02:53 VIS not applicable for this client. la4 Intake: 03:21 IV: 500ml; Total: 500ml. la4 Outcome: 02:42 Decision to Hospitalize by Provider. ms3 15:46 Patient left the ED. Signatures: Dispatcher [employer] EDMS Myra Sandoval RN RN Latasha Mcneil ag3 Aren Benson DO DO ms3 Dolores Portillo RN RN la4 Latonia Lizama, BRIGETTE RN nw1
--- NOTE | 2023-10-12 02:43 | EDPHYS ---
Physician Documentation [facility] Name: Randy Briones Age: 53 yrs Sex: Male : 1970 Arrival Date: 10/12/2023 Time: 01:08 Bed 20 Private MD: ED Physician Aren Benson HPI: 10/12 01:24 This 53 yrs old Male presents to ER via Unassigned with complaints of Numbness Of Face, ms3 SHAKING. 01:24 53-year-old male with past medical history of COPD, hypertension, alcoholism presents ms3 to the emergency department for shaking, left face numbness, left arm numbness, chest pain that began at 12 AM on waking up. Patient states his last drink was yesterday. Patient denies any alleviating or inciting factors. Historical: - Allergies: 02:46 Lisinopril; la4 - Home Meds: 02:46 Prednisone Oral [Active]; Advair Diskus 250-50 mcg/dose Inhl dsdv [Active]; albuterol la4 sulfate 2.5 mg /3 mL (0.083 %) Inhl nebu 3 mL 3 times per day [Active]; montelukast 10 mg Oral tab 1 tab once daily [Active]; gabapentin 100 mg Oral cap 3 caps 3 times per day [Active]; Nexium 40 mg Oral cpDR 1 cap 2 times per day [Active]; Norvasc 10 mg Oral tab once daily [Active]; - PMHx: 02:46 Alcoholism; COPD; home 02 3LNC PRN; Hypertension; la4 - PSHx: 02:46 Amputation of left index finger; la4 - Immunization history:: Adult Immunizations up to date. - Social history:: Smoking status: Patient reports the use of cigarette tobacco products, smokes one-half pack cigarettes per day. - Code Status:: Full code. ROS: 01:24 Constitutional: Negative for fever, and chills. Neck: Negative for injury, pain, and ms3 swelling, 01:24 Abdomen/GI: Negative for abdominal pain, nausea, vomiting, diarrhea, and constipation, MS/Extremity: Negative for injury and deformity, Skin: Negative for injury, rash, and discoloration, 01:24 Cardiovascular: Positive for chest pain, 01:24 Respiratory: Positive for shortness of breath, 01:24 All other systems are negative, Exam: 01:24 Head/Face: Normocephalic, atraumatic. Neck: Trachea midline, no cervical ms3 lymphadenopathy. Supple, full range of motion without nuchal rigidity, or vertebral point tenderness. No Meningismus. Chest/axilla: Normal chest wall appearance and motion. Nontender with no deformity. Cardiovascular: Regular rate and rhythm with a normal S1 and S2. No gallops, murmurs, or rubs. Normal PMI, no JVD. No pulse deficits. Respiratory: Lungs have equal breath sounds bilaterally, clear to auscultation and percussion. No rales, rhonchi or wheezes noted. No increased work of breathing, no retractions or nasal flaring. Skin: Warm, dry with normal turgor. Normal color with no rashes, no lesions, and no evidence of cellulitis. MS/ Extremity: Pulses equal, no cyanosis. Neurovascular intact. Full, normal range of motion. 01:24 Constitutional: The patient appears alert, awake, anxious, Shaking 02:10 ECG was reviewed by the Attending Physician. ms3 Vital Signs: 01:08 BP 156 / 106; Pulse 135; Resp 26; Pulse Ox 96% on R/A; Pain 8/10; la4 01:30 BP 155 / 106; Pulse 116; Resp 26; Pulse Ox 99% on R/A; la4 01:30 BP 155 / 106; Pulse 116; Resp 22; Pulse Ox 96% on R/A; la4 01:45 BP 174 / 117; Pulse 118; Resp 24; Pulse Ox 96% on R/A; la4 01:45 BP 174 / 117; Pulse 123; Resp 21; Pulse Ox 99% ; la4 02:00 BP 181 / 159; Pulse 106; Resp 26; Pulse Ox 96% ; la4 02:00 BP 181 / 159; Pulse 127; Resp 22; Pulse Ox 95% ; la4 02:10 BP 156 / 106; Pulse 122; Resp 18; Pulse Ox 100% on R/A; la4 02:15 BP 175 / 104; Pulse 114; Resp 26; Pulse Ox 98% on R/A; la4 02:15 BP 175 / 105; Pulse 115; Resp 22; Pulse Ox 94% ; la4 02:30 BP 188 / 100; Pulse 107; Resp 22; Pulse Ox 96% on 3 lpm NC; la4 02:45 BP 161 / 104; Pulse 106; Resp 22; Pulse Ox 95% on 3 lpm NC; la4 03:16 BP 140 / 127; Pulse 109; Resp 20; Pulse Ox 97% ; la4 04:00 BP 184 / 101; Pulse 105; Resp 20; Pulse Ox 99% ; la4 06:00 BP 157 / 91; Pulse 85; Resp 20; Pulse Ox 93% ; la4 07:14 BP 153 / 114; Pulse 95; Resp 20; Pulse Ox 97% ; la4 01:08 Pain Scale: Adult la4 01:08 chest pain la4 Shani Coma Score: 02:53 Eye Response: spontaneous(4). Motor Response: obeys commands(6). Verbal Response: la4 oriented(5). Total: 15. MDM: 01:21 Patient medically screened. ms3 01:24 Differential diagnosis: metabolic disorder, DE versus alcohol withdrawal. ms3 08:49 Data reviewed: vital signs, nurses notes, and as a result, I will admit patient. ms3 Consideration of Admission/Observation Patient was admitted/placed on observation. Management of patient was discussed with the following: Hospitalist: Dr Martin. I considered the following discharge prescriptions or medication management in the emergency department Medications were administered in the Emergency Department. See MAR. Independent interpretation of the following test(s) in the Emergency Department EKG: See my EKG interpretation above. Historians other than the Patient: Spouse/Significant Other: . Care significantly affected by the following chronic conditions: Hypertension, Alcoholism, COPD. Counseling: I had a detailed discussion with the patient and/or guardian regarding the historical points, exam findings, and any diagnostic results supporting the discharge/admit diagnosis, lab results, radiology results, the need for further work-up and treatment in the hospital. ED course: Discussed necessity for admission with patient. Patient understands agrees with plan. Patient improved since arrival to the emergency department. 10/12 01:22 Order name: Basic Metabolic Panel; Complete Time: 02:40 ms3 10/12 01:22 Order name: CBC with Diff; Complete Time: 02:31 ms3 10/12 01:22 Order name: LFT's; Complete Time: 02:41 ms3 10/12 01:22 Order name: Magnesium; Complete Time: 02:41 ms3 10/12 01:22 Order name: NT PRO-BNP; Complete Time: 02:41 ms3 10/12 01:22 Order name: Troponin HS; Complete Time: 02:41 ms3 10/12 01:22 Order name: CK; Complete Time: 02:41 ms3 10/12 03:42 Order name: Iron EDMS 10/12 03:42 Order name: Magnesium EDMS 10/12 03:42 Order name: NT PRO-BNP EDMS 10/12 03:42 Order name: Vitamin B12 Level EDMS 10/12 03:47 Order name: CBC with Automated Diff EDMS 10/12 03:47 Order name: Comprehensive Metabolic Panel EDMS 10/12 03:47 Order name: Protime (+INR) EDMS 10/12 03:47 Order name: PTT, Activated Partial Thromb EDMS 10/12 11:56 Order name: CBC Smear Scan EDMS 10/12 01:22 Order name: XRAY Chest (1 view) ms3 10/12 01:22 Order name: EKG; Complete Time: 01:22 ms3 10/12 01:22 Order name: Cardiac monitoring; Complete Time: 02:40 ms3 10/12 01:22 Order name: EKG - Nurse/Tech; Complete Time: 02:40 ms3 10/12 01:22 Order name: IV Saline Lock; Complete Time: 02:40 ms3 10/12 01:22 Order name: Labs collected and sent; Complete Time: 02:40 ms3 10/12 01:22 Order name: O2 Per Protocol; Complete Time: 02:40 ms3 10/12 01:22 Order name: O2 Sat Monitoring; Complete Time: 02:40 ms3 10/12 07:39 Order name: Labs - recollect needed: recollect light green top; Complete Time: 09:04 bd 10/12 09:24 Order name: Labs - recollect needed: recollect light green top; Complete Time: 09:43 bd EC:10 Rate is 128 beats/min. Rhythm is regular. QRS Dwight is Normal. KS interval is normal. ms3 QRS interval is normal. Clinical impression: Sinus tachycardia. Interpreted by me. Reviewed by me. Administered Medications: 01:28 Drug: Ativan IVP 2 mg IVP once Route: IVP; Site: right forearm; nw1 03:22 Follow up: Response: No adverse reaction; Anxiety unchanged la4 02:15 Drug: Ativan IVP 2 mg IVP once Route: IVP; Site: right forearm; la4 02:15 Follow up: BP 175 / 104; Pulse 114 bpm; Resp 26 bpm; Pulse Ox 98% RA la4 03:23 Follow up: Response: Anxiety decreased la4 02:23 Drug: Ativan IVP 2 mg IVP once Route: IVP; Site: left forearm; la4 03:22 Follow up: Response: No adverse reaction; Anxiety unchanged la4 02:23 Drug: Thiamine PO 100 mg PO once Route: PO; la4 03:22 Follow up: Response: No adverse reaction la4 02:23 Drug: NS 0.9% IV 1000 ml IV at 1 bolus Per protocol; 1000 mL bolus Route: IV; Rate: 1 la4 bolus; Site: right forearm; 03:21 Follow up: Response: No adverse reaction; IV Status: Completed infusion; IV Intake: la4 500ml 03:27 CANCELLED (Duplicate Order): ativan2 mg IVP once nw1 Disposition: 08:51 Chart complete. ms3 Disposition Summary: 10/12/23 02:42 Hospitalization Ordered Notes: Hospitalization Status: Inpatient Admission ms3 Provider: Satnam Martin ms3 Condition: Stable ms3 Problem: new ms3 Symptoms: are unchanged ms3 Bed/Room Type: Standard ms3 Location: [facility] ER HOLD(10/12/23 10:52) [facility] Room Assignment: ERHOLD-(10/12/23 10:52) ja Diagnosis - Alcohol dependence with withdrawal ms3 - Essential (primary) hypertension ms3 - Chest pain, unspecified ms3 Forms: - Medication Reconciliation Form ms3 - SBAR form ms3 - Leadership Thank You Letter ms3 Critical care time excluding procedures: 08:50 Critical care time: Bedside Care: 35 minutes, Consultation: 10 minutes, Family ms3 Intervention: 5 minutes. Total time: 50 minutes Signatures: Dispatcher [employer] Leticia Celestin Kimberly, RN RN kl Aguilar, Jose, RN RN ja1 Aren Benson DO DO ms3 Dolores Portillo RN RN la4 Latonia Lizama RN RN nw1 Corrections: (The following items were deleted from the chart) 03:27 02:24 Ativan IVP 2 mg IVP once ordered. la4 nw1 03:47 03:33 CBC with Automated Diff ordered. EDMS EDMS 03:47 03:33 CBC with Automated Diff ordered. EDMS EDMS 03:47 03:33 Comprehensive Metabolic Panel ordered. EDMS EDMS 03:47 03:33 Comprehensive Metabolic Panel ordered. EDMS EDMS 03:47 03:33 Protime (+INR) ordered. EDMS EDMS 03:47 03:33 Protime (+INR) ordered. EDMS EDMS 03:47 03:33 PTT, Activated Partial Thromb ordered. EDMS EDMS 03:47 03:33 PTT, Activated Partial Thromb ordered. EDMS EDMS 04:58 02:42 Intensive Care Unit ms3 kl 04:58 02:42 ms3 kl 10:43 04:58 [facility] ER HOLD kl bd 10:43 04:58 ERHOLD- kl bd 10:52 10:43 Telemetry/MedSurg (Inpatient) bd ja1 10:52 10:43 204 bd ja1
[2023-10-12] MEDS ORDERED: ALBUTEROL 2.5 MG/3 ML NEB SOL NEB PRN (03:26)
[2023-10-12] MEDS ORDERED: HYDROMORPHONE HCL 0.5 MG/0.5 ML INJ IV PRN (03:26)
[2023-10-12] MEDS ORDERED: ACETAMINOPHEN 500 MG TAB PO PRN (03:26)
[2023-10-12] MEDS ORDERED: ONDANSETRON 4 MG/2 ML VIAL IV PRN (03:26)
[2023-10-12] MEDS ORDERED: IPRATROPIUM BROM 0.5MG/2.5ML NEB PRN (03:26)
[2023-10-12 03:51] VITALS: TEMP 98
--- NOTE | 2023-10-12 03:51 | P.HP ---
Certification for Inpatient Patient admitted to: Observation With expected LOS: <2 Midnights Patient will require the following post-hospital care: None Practitioner: I am a practitioner with admitting privileges, knowledge of patient current condition, hospital course, and medical plan of care. Services: Services provided to patient in accordance with Admission requirements found in Title 42 Section 412.3 of the Code of Federal Regulations Patient History Date of Service: 10/12/23 Reason for admission: Shortness of breath; alcohol withdrawal History of Present Illness: Patient is a 53-year-old gentleman came to the hospital with shortness of breath. Patient states he had stopped drinking for a couple years. However, around he was drinking a case a day. He was binging so heavily that he was very confused and not making a lot of sense. Patient decided to stop drinking in the family brought him into the emergency room for further evaluation. In the emergency room patient is awake and alert and oriented to person place and time. Patient is able to give me his history on his own. He wears 2 L of oxygen at home. Patient's blood pressure and heart rate are elevated. Patient been given Ativan in the emergency room. Will continue with this for now. Will also give Librium every 6 hours at this time. Banana bag as well. Patient is oxygenating well. He does not appear to be tachypneic while laying in bed. Will get his blood pressure and heart rate stabilized and we should be able to discharge him over the next 24 to 48 hours. Allergies lisinopril Allergy (Verified 04/26/22 13:11) Shortness of breath BC powder Allergy (Mild, Uncoded 04/26/22 13:10) Hives Lisinopril Allergy (Mild, Uncoded 04/26/22 13:10) Shortness of breath Home Medications: predniSONE [Prednisone*] 10 mg PO DAILY #30 tab 04/28/22 Budesonide/Formoterol Fumarate [Symbicort 160-4.5 Mcg Inhaler] 2 puff IH DAILY 06/23/23 Spironolactone [Aldactone*] 25 mg PO DAILY 06/23/23 Tiotropium Cobb [Spiriva] 2 puff IH DAILY 06/23/23 Amlodipine [Norvasc*] 10 mg PO DAILY 06/24/23 - Past Medical/Surgical History Diabetic: No -: Hypertension -: COPD on chronic steroids/home O2 -: Tobacco abuse -: Alcohol abuse -: GERD -: Obesity -: BUD -: 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 - Family History Mother Medical History: Diabetes, Cancer Notes: colon cancer Father Medical History: Lung disease Notes: COPD - Social History Alcohol use: Yes CD- Drugs: No Caffeine use: Yes Review of Systems 10-point ROS is otherwise unremarkable Physical Examination - Vital Signs Temperature: 98 F (Vitals reviewed) - Physical Exam General: Alert, In no apparent distress, Oriented x3 HEENT: Atraumatic, PERRLA, Mucous membr. moist/pink, EOMI, Sclerae nonicteric Neck: Supple, 2+ carotid pulse no bruit, No LAD, Without JVD or thyroid abnormality Respiratory: Normal air movement, Expiratory wheezes (End expiratory wheezing) Cardiovascular: Regular rate/rhythm, Normal S1 S2 Gastrointestinal: Normal bowel sounds, Soft and benign, Non-distended, No tenderness Musculoskeletal: No tenderness Integumentary: No rashes Neurological: Normal gait, Normal speech, Normal strength at 5/5 x4 extr, Normal tone, Sensation intact, Cranial nerves 3-12 intact, Normal affect Lymphatics: No axilla or inguinal lymphadenopathy - Studies Laboratory Data (last 24 hrs) 10/12/23 10/12/23 01:41 01:41 WBC 10.50 Hgb 16.4 Hct 47.5 Plt Count 221 Sodium 135 L Potassium 3.7 BUN 15 Creatinine 0.84 Glucose 98 Magnesium 2.0 Total Bilirubin 0.4 AST 32 ALT 33 Alkaline Phosphatase 74 Assessment & Plan - Problems (Diagnosis) (1) Alcohol withdrawal Current Visit: Yes Status: Acute (2) Alcohol abuse Onset Date: 02/11/18 Current Visit: No Status: Acute (3) COPD exacerbation Onset Date: 09/07/18 Current Visit: No Status: Acute (4) HTN (hypertension) Onset Date: 02/11/18 Current Visit: No Status: Chronic (5) Tobacco abuse Onset Date: 02/11/18 Current Visit: No Status: Chronic - Plan Plan: 1. Alcohol withdrawal; continue with Librium 25 mg p.o. every 6. Continue with Ativan as needed. Multivitamin as well. Patient is clinically doing well. Patient's heart rate and blood pressure slightly elevated. We should be able to get this down over the next 24 hours. As long as patient's not withdrawing significantly we should be able to discharge him with Librium and outpatient follow-up. 2. Patient with COPD; patient on chronic O2. Patient on 3 L of oxygen at home. He is maintaining his sats on 3 L at this time at 94 to 95%. Patient does get a little tachypnea whenever he moves around but other than that he is fairly stable. His COPD looks to be stable 3. Patient with macrocytosis; continue with multivitamins along with B12 and folate 4. GI and DVT prophylaxis Discharge Plan: Home Plan to discharge in: 24 Hours - Advance Directives Does patient have a Living Will: No Does patient have a Durable POA for Healthcare: No - Code Status/Comfort Care Code Status Assessed: Yes Code Status: Full Code Critical Care: No Time Spent Managing PTS Care (In Minutes): 45
[2023-10-12] MEDS ORDERED: NA CHLORIDE 0.9% 1,000 ML IV SCH (04:00)
[2023-10-12] MEDS ORDERED: METOPROLOL XL 50 MG TAB PO ONE (04:33)
[2023-10-12] MEDS ORDERED: ACETAMINOPHEN 500 MG TAB ONE (04:33)
[2023-10-12] MEDS ORDERED: chlordiazePOXIDE HCl 25 MG CAP ONE ×2 (04:34→12:32)
[2023-10-12] MEDS ORDERED: METHYLPREDNISOLONE 40 MG INJ ONE ×2 (04:34→04:36)
[2023-10-12] MEDS ORDERED: MULTIVITAMINS 10 ML VIAL (INJ) IV ONE ×2 (04:54→04:56)
[2023-10-12] MEDS ORDERED: FOLIC ACID 5 MG/ML VIAL ONE (04:55)
[2023-10-12] MEDS: chlordiazePOXIDE HCl 25 MG CAP PO SCH ×2 (06:00→12:00)
[2023-10-12] MEDS: METHYLPREDNISOLONE 125 MG INJ IV SCH ×2 (06:00→12:00)
[2023-10-12] MEDS ORDERED: METOPROLOL TAR 25 MG TAB PO SCH (06:00)
[2023-10-12 07:00] LABS: Absolute Lymphocytes (CBC) 0.6 K/uL (0.7-4.9); Hematocrit 42.7 % (39.6-49.0); Lymphocytes % 6.7 % (15.3-44.8); MCV 102.5 fL (80-100); MPV 6.5 fL (7.6-11.3); Platelets 154 thou/uL (152-406); RBC Red Blood Cell Count 4.17 M/uL (4.33-5.43)
[2023-10-12 07:15] LABS: Albumin 3.5 g/dL (3.4-5.0); Bilirubin Total 0.5 mg/dL (0.2-1.0); Potassium 3.8 mEq/L (3.5-5.1); Protein, Total 6.6 g/dL (6.4-8.2)
[2023-10-12 07:48] VITALS: BMI 28.7
[2023-10-12] MEDS ORDERED: FOLIC ACID 1 MG, MULTIVITAMINS INJ 10 ML, THIAMINE HCL 100 MG in NA CHLORIDE 0.9% 1,000 ML IV SCH (09:00)
[2023-10-12 09:26] LABS: Protime INR 0.89
[2023-10-12] MEDS: LORazepam 2 MG/ML VIAL IV PRN ×2 (09:28→14:21)
[2023-10-12 10:39] LABS: Magnesium 1.4 mg/dL (1.6-2.4)
[2023-10-12 10:42] VITALS: O2SAT 98
[2023-10-12 11:52] LABS: Blood Morphology Comment NOT SEEN (NOT SEEN); Platelet Estimate ADEQ; White Blood Cell Scan OK (OK)
[2023-10-12 12:15] VITALS: BP 161/92
[2023-10-12] MEDS ORDERED: METHYLPREDNISOLONE 125 MG INJ ONE (12:32)
--- NOTE | 2023-10-12 13:39 | RAD REPORT ---
EXAM DESCRIPTION: RAD - Chest Single View - 10/12/2023 2:06 am CLINICAL HISTORY: CHEST PAIN COMPARISON: 10/05/2023. TECHNIQUE: XR CHEST 1 VIEW 10/12/2023 1:22 AM SELF DEFENSE INSTRUCTOR FINDINGS: Cardiac silhouette is normal in size. Lungs are clear without consolidation, atelectasis, mass or edema. There is no pleural effusion. There is no pneumothorax. There are no acute osseous fin dings. IMPRESSION: Clear lungs. Electronically signed by: Satya Russell MD 10/12/2023 03:46 AM SELF DEFENSE INSTRUCTOR Due to temporary technical issues with the PACS/Fluency reporting system, reports are being signed by the in house radiologist without review as a courtesy to ensure prompt reporting. The interpreting r adiologist is fully responsible for the content of the report.
[2023-10-12] MEDS ORDERED: ACETAMINOPHEN 325 MG TABLET ONE (15:04)
--- NOTE | 2023-10-12 17:16 | P.DS ---
Admission Date: 10/12/23 Discharge Date: 10/12/23 Disposition: AMA-LEFT AGAINST MEDICAL ADVIC Reason for Admission: Shortness of breath; alcohol withdrawal Brief History of Present Illness: Patient is a 53-year-old gentleman came to the hospital with shortness of breath. Patient states he had stopped drinking for a couple years. However, around [place] he was drinking a case a day. He was binging so heavily that he was very confused and not making a lot of sense. Patient decided to stop drinking in the family brought him into the emergency room for further evaluation. In the emergency room patient is awake and alert and oriented to person place and time. Patient is able to give me his history on his own. He wears 2 L of oxygen at home. Patient's blood pressure and heart rate are elevated. Patient been given Ativan in the emergency room. Will continue with this for now. Will also give Librium every 6 hours at this time. Banana bag as well. Patient is oxygenating well. He does not appear to be tachypneic while laying in bed. Will get his blood pressure and heart rate stabilized and we should be able to discharge him over the next 24 to 48 hours. Hospital Course: Randy refused appropriate care for current condition, He pulled out his IV and decided he wanted to leave. Speaking to him to be sure he is aware that he needs the hospital service to be sure recovery is adequate and safe. He was made aware that it is too dangerous and could cause physical harm to him, he was made aware that he is benefiting from the current IV treatment and additional monitoring of his labs and vitals. Currently his vitals are stable, he is on RA and oxygenating well, He is ambulating independently, and tolerating PO diet. He does not desire to join a cessation group . Physical Exam General: Alert, In no apparent distress, Oriented x3 HEENT: Atraumatic, PERRLA, Mucous membr. moist/pink, EOMI, Sclerae nonicteric Neck: Supple, 2+ carotid pulse no bruit, No LAD, Without JVD or thyroid abnormality Respiratory: Normal air movement, Expiratory wheezes (End expiratory wheezing) Cardiovascular: Regular rate/rhythm, Normal S1 S2 Gastrointestinal: Normal bowel sounds, Soft and benign, Non-distended, No tenderness Musculoskeletal: No tenderness Integumentary: No rashes Neurological: Normal gait, Normal speech, Normal strength at 5/5 x4 extr, Normal tone, Sensation intact, Cranial nerves 3-12 intact, Normal affect Lymphatics: No axilla or inguinal lymphadenopathy Vital Signs/Physical Exam: Temp Pulse Resp BP Pulse Ox 98 F 81 18 161/92 H 97 10/12/23 12:00 10/12/23 12:00 10/12/23 12:00 10/12/23 12:00 10/12/23 12:00 Laboratory Data at Discharge: WBC 9.10 thou/uL (4.3-10.9) 10/12/23 06:48 Hgb 14.6 g/dL (13.6-17.9) D 10/12/23 06:48 Hct 42.7 % (39.6-49.0) 10/12/23 06:48 Plt Count 154 thou/uL (152-406) D 10/12/23 06:48 PT 9.8 SECONDS (9.5-12.5) 10/12/23 09:11 INR 0.89 10/12/23 09:11 APTT 33.2 SECONDS (24.3-36.9) 10/12/23 09:11 Sodium 136 mEq/L (136-145) 10/12/23 06:48 Potassium 3.8 mEq/L (3.5-5.1) 10/12/23 06:48 BUN 15 mg/dL (7-18) 10/12/23 06:48 Creatinine 0.64 mg/dL (0.70-1.30) L 10/12/23 06:48 Glucose 96 mg/dL (74-106) 10/12/23 06:48 Magnesium 1.4 mg/dL (1.6-2.4) L 10/12/23 09:49 Total Bilirubin 0.5 mg/dL (0.2-1.0) 10/12/23 06:48 AST 23 U/L (15-37) 10/12/23 06:48 ALT 27 U/L (16-61) 10/12/23 06:48 Alkaline Phosphatase 60 U/L (45-117) 10/12/23 06:48 Home Medications: predniSONE [Prednisone*] 10 mg PO DAILY #30 tab 04/28/22 Budesonide/Formoterol Fumarate [Symbicort 160-4.5 Mcg Inhaler] 2 puff IH DAILY 06/23/23 Spironolactone [Aldactone*] 25 mg PO DAILY 06/23/23 Tiotropium [place] [Spiriva] 2 puff IH DAILY 06/23/23 Amlodipine [Norvasc*] 10 mg PO DAILY 06/24/23 Gabapentin 100 mg PO TID 10/12/23 Followup: Xenia AUSTIN,Adrianna Gamez DO [Primary Care Provider] - Time spent managing pt's care (in minutes): 35
--- NOTE | 2023-10-13 13:32 | EKG ---
Test Date: 2023-10-12 Test Time: 01:30:40 Video Effects Editor: NAY MEASUREMENT RESULTS: Intervals: Rate: 128 DC: 124 QRSD: 92 QT: 320 QTc: 467 [place]: P: 67 DC: 124 QRS: 93 T: 63 INTERPRETIVE STATEMENTS: Sinus tachycardia Possible Left atrial enlargement Rightward axis Incomplete right bundle branch block Nonspecific ST and T wave abnormality Abnormal ECG Compared to ECG 10/05/2023 02:39:18 Possible ischemia no longer present ST (T wave) deviation still present Electronically Signed On 10-13-23 13:27:35 [employer]LECT[employer]ICAL MAINTENA[employer]CE WORKER by Rosalino Albert
== END 2023-10-12 15:45 | disposition left against medical advice (07) ==
LOC: ER 01:08 → ERHOLD 03:26
PROVIDERS: ADMIT Internal Medicine; ATTEND Internal Medicine
DX: J44.1 Chronic obstructive pulmonary disease with (acute) exacerbation (principal); F10.139 Alcohol abuse with withdrawal, unspecified; I10 Essential (primary) hypertension; Z72.0 Tobacco use; Z99.81 Dependence on supplemental oxygen; Z53.29 Procedure and treatment not carried out because of patient's decision for other reasons
CPT/HCPCS: 93005; 85025 ×2; 80048; 36415; 83735 ×2; 82550; 85610; 80076; 85730; 84484; 82607; 83540; 80053; 83880 ×2; 71045; 99284; J3411 ×3; J2930; J7030 ×3; J2920 ×2; G0378 ×2

== ENCOUNTER → 2023-11-01 | Emergency (ER) | payer OTHER ==
--- OUTSIDE RECORDS SUMMARY | 2023-11-01 00:50 | XMS REPORT | Continuity of Care Document ---
Author Name Unknown Address [address] [facility] [address] [place] [address] [facility] Address [address] [facility] [address] [place] [address] Care Team Providers Care Consumer Marketing Specialist Name Role Phone JOHN SANDRA Primary Care Physician Unavailab JAC Haddad Attending Clinician Unavailable Jac Navarro MD Attending Clinician [phone] DARIEN LOBO Attending Clinician Unavailable MARIA ELENA CHAN MEDICAL Attending George akins Unavailable MELINDA MACIEL Attending Clinician Unavailable Melinda Maciel DO Attending Clinician [phone] CHRISTY SHAW Attending Clinician Unavailable Christy Shaw MD Attending Clinician [phone] DENISE SUNG Attending Clinician Unavailable KARLEY ADAMS Attending Clinician Unavailable MELINDA MACIEL Admitting Clinician Unavailable CHRISTY SHAW Admitting Clinician Unavailable Payers Payer Name Policy Type Policy Number Effective Date Expirati on Date Source GLORIA GONSALVES [employer]: BRANDON O ENGAGEMENT DIRECTOR 94 ON 9 [id number] 2023 00:00:00 Problems Condition Name Condition Details Condition Category Status Onset Date Resolution Date Last Treatment Date Treating Clinician Comments Source Acute exacerbati on of chronic obstructiv e pulmonary disease (COPD) Acute exacerbati on of chronic obstructiv e pulmonary disease (COPD) Disease Active 03-24 00:00: 00 [facility] Obesity (BMI 30-39.9) Obesity (BMI 30-39.9) Disease Active 03-24 00:00: 00 [facility] Allergies, Adverse Reactions, Alerts Allergy Name Allergy Type Status Severity Reaction(s) Onset Date Inactive Date Treating Clinician Comments Source Lisinopr il Propensi ty to adverse reaction s Active Anaphylaxis 03-24 00:00: 00 [facility] LISINOPR [place] DRUG INGREDI Active Anaphylaxis 03-24 00:00: 00 [facility] Social History Social Habit Start Date Stop Date Quantity Comments Source History of tobacco use Smokes tobacco daily [facility] of Social function 2022-10-17 00:00:00 2022-10-17 00:00:00 [facility] Alcohol intake 2022-10-17 00:00:00 2022-10-17 00:00:00 4.29 /d [facility] Exposure to SARS-CoV-2 (event) 2022-10-04 00:00:00 2022-10-14 10:25:00 Not sure [facility] Tobacco use and exposure 2018-03-24 00:00:00 2018-03-24 00:00:00 User of smokeless tobacco [facility] Tobacco Comment 2018-03-24 00:00:00 2018-03-24 00:00:00 trying to quit [facility] Sex Ass[birth year] At 1970 00:00:00 1970 00:00:00 [facility] Smoking Status Start Date Stop Date Source Smokes tobacco daily 2018-03-24 00:00:00 [facility] Medications Ordered Medication Name Filled Medication Name Start Date Stop Date Current Medication? Ordering Clinician Indication Dosage Frequency Signature (SIG) Comments Components Source methylpredn isolone sod succ (SOLU-MEDRO L) injection 125 mg 2022-11 08:45: 00 10-27 20:44 :00 Yes 125mg 125 mg, Slow IV Push, ONCE, 1 dose, On Thu10/27/23 at 0245, STAT [facility] ipratropium -albuteroL (DUONEB) 0.5 mg-3 mg(2.5 mg base)/3 mL nebulizer solution 3 mL 2022-11 08:45: 00 10-27 20:44 :00 Yes 3mL 3 mL, Inhalation , ONCE NOW, 1 dose, On Thu10/27/23 at 0245, LAURYN [facility] diazePAM (VALIUM) tablet 10 mg 2022-11 07:45: 00 10-27 19:44 :00 Yes 10mg 10 mg, Oral, ONCE, 1 dose, On Thu10/27/23 at 0145, LAURYN [facility] levoFLOXaci n (LEVAQUIN) tablet 500 mg 2022-11 07:45: 00 10-27 19:44 :00 Yes 500mg 500 mg, Oral, ONCE, 1 dose, On Thu10/27/23 at 0145, LAURYN
Re ason for Anti-Infec tive: Empiric Non-Surgic al Prophylaxi s
Durat ion of therapy: Once (ED) [facility] iopamidol (ISOVUE 370-500 mL) injection 70 mL 2021-11 18:30: 00 10-14 18:30 :00 No [id number] 70mL 70 mL, Intravenou s, ONCE, 1 dose, On Thu10/14/22 at 1230, Routine [facility] methylpredn isolone sod succ (SOLU-MEDRO L) injection 125 mg 2021-11 18:00: 00 Yes 125mg 125 mg, Intravenou s, Q6H, First dose on Thu10/14/22 at 1200, Until Discontinu ed, Routine [facility] furosemide (LASIX) injection 40 mg 2021-11 17:45: 00 10-14 16:39 :00 No 40mg 40 mg, IV Push, ONCE, 1 dose, On Thu10/14/22 at 1145, LAURYN [facility] ipratropium -albuteroL (DUONEB) 0.5 mg-3 mg(2.5 mg base)/3 mL nebulizer solution 3 mL 2021-11 17:30: 00 10-14 16:41 :00 No 3mL 3 mL, Inhalation , ONCE, 1 dose, On Thu10/14/22 at 1130, Routine [facility] FENTanyl PF (SUBLIMAZE (PF)) injection 50 mcg 2021-11 16:45: 00 10-14 16:39 :00 No 50ug 50 mcg, Slow IV Push, ONCE, 1 dose, On Thu10/14/22 at 1045, Routine [facility] levoFLOXaci n 750 mg tablet 2021-11 00:00: 00 Yes [id number] 750mg Take 1 tablet by mouth every 24 (twenty-fo ur) hours. [facility] levoFLOXaci n 750 mg tablet 2021-11 00:00: 00 Yes [id number] 750mg Take 1 tablet by mouth every 24 (twenty-fo ur) hours. [facility] HYDROcodone -acetaminop hen (NORCO) 10-325 mg tablet 1 tablet -04 12:15: 00 03-12 11:21 :00 No 1{tbl} 1 tablet, Oral, ONCE, 1 dose, On Thu03/12/22 at 0715, Routine [facility] HYDROcodone -acetaminop hen 10-325 mg tablet -04 00:00: 00 03-20 04:59 :00 No [id number] 1{tbl} Take 1 tablet by mouth every 6 (six) hours as needed for Pain (scale 7-10) for up to 7 days. Indication s: acute pain [facility] ipratropium -albuteroL (DUONEB) 0.5 mg-3 mg(2.5 mg base)/3 mL nebulizer solution 3 mL 02-20 13:00: 00 Yes 3mL 3 mL, Inhalation , QID, First dose on Thu02/20/22 at 0800, Until Discontinu ed, Routine [facility] methylPREDN ISolone sod succ (SOLU-MEDRO L (PF)) injection 40 mg 02-20 11:45: 00 02-20 10:43 :00 No 40mg 40 mg, Intravenou s, ONCE, 1 dose, On [facility] 02/20/22 at 0645, STAT [facility] foLIC acid (FOLATE) tablet 1 mg 02-20 11:45: 00 02-20 10:41 :00 No 1mg 1 mg, Oral, ONCE, 1 dose, On [facility] 02/20/22 at 0645, [facility] thiamine (VITAMIN B1) injection 100 mg 02-20 11:45: 00 02-20 10:43 :00 No 100mg 100 mg, Intravenou s, ONCE, 1 dose, On [facility] 02/20/22 at 0645, [facility] LORazepam (ATIVAN) injection 2 mg 02-20 11:45: 00 02-20 10:42 :00 No 2mg 2 mg, Slow IV Push, ONCE, 1 dose, On [facility] 02/20/22 at 0645, STAT [facility] ipratropium -albuteroL (DUONEB) 0.5 mg-3 mg(2.5 mg base)/3 mL nebulizer solution 3 mL 02-20 10:30: 00 02-20 09:34 :00 No 3mL 3 mL, Inhalation , ONCE, 1 dose, On [facility] 02/20/22 at 0530, Routine [facility] predniSONE 10 mg tablet 02-20 00:00: 00 Yes [id number] TAKE ONE TABLET BY MOUTH DAILY [facility] albuterol 90 mcg/actuati on inhaler 02-20 00:00: 00 Yes [id number] 2{puff} Inhale 2 Puffs every 4 (four) hours as needed for Wheezing or Shortness of Breath. [facility] albuterol 2.5 mg /3 mL (0.083 %) nebulizer solution 02-20 00:00: 00 Yes [id number] 2.5mg Inhale 3 mL every 4 (four) hours. May also nebulize one extra every 6 hours. [facility] budesonide- formoteroL 160-4.5 mcg/actuati on inhaler 02-20 00:00: 00 Yes [id number] 2{puff} Inhale 2 Puffs 2 (two) times daily. [facility] triamterene -hydrochlor othiazid 37.5-25 mg tablet 02-20 00:00: 00 Yes [id number] 1{tbl} Take 1 tablet by mouth daily. [facility] chlordiazeP OXIDE 25 mg capsule 02-20 00:00: 00 Yes [id number] 25mg Take 1 capsule by mouth every 6 (six) hours as needed for Anxiety, Agitation, Heart Rate => 100 or Detox. [facility] predniSONE 10 mg tablet 02-20 00:00: 00 Yes [id number] TAKE ONE TABLET BY MOUTH DAILY [facility] albuterol 90 mcg/actuati on inhaler 02-20 00:00: 00 Yes [id number] 2{puff} Inhale 2 Puffs every 4 (four) hours as needed for Wheezing or Shortness of Breath. [facility] albuterol 2.5 mg /3 mL (0.083 %) nebulizer solution 02-20 00:00: 00 Yes [id number] 2.5mg Inhale 3 mL every 4 (four) hours. May also nebulize one extra every 6 hours. [facility] budesonide- formoteroL 160-4.5 mcg/actuati on inhaler 02-20 00:00: 00 Yes [id number] 2{puff} Inhale 2 Puffs 2 (two) times daily. [facility] triamterene -hydrochlor othiazid 37.5-25 mg tablet 02-20 00:00: 00 Yes [id number] 1{tbl} Take 1 tablet by mouth daily. [facility] chlordiazeP OXIDE 25 mg capsule 02-20 00:00: 00 Yes [id number] 25mg Take 1 capsule by mouth every 6 (six) hours as needed for Anxiety, Agitation, Heart Rate => 100 or Detox. [facility] predniSONE 10 mg tablet 02-20 00:00: 00 Yes [id number] TAKE ONE TABLET BY MOUTH DAILY [facility] albuterol 90 mcg/actuati on inhaler 02-20 00:00: 00 Yes [id number] 2{puff} Inhale 2 Puffs every 4 (four) hours as needed for Wheezing or Shortness of Breath. [facility] albuterol 2.5 mg /3 mL (0.083 %) nebulizer solution 02-20 00:00: 00 Yes [id number] 2.5mg Inhale 3 mL every 4 (four) hours. May also nebulize one extra every 6 hours. [facility] budesonide- formoteroL 160-4.5 mcg/actuati on inhaler 02-20 00:00: 00 Yes [id number] 2{puff} Inhale 2 Puffs 2 (two) times daily. [facility] triamterene -hydrochlor othiazid 37.5-25 mg tablet 02-20 00:00: 00 Yes [id number] 1{tbl} Take 1 tablet by mouth daily. [facility] chlordiazeP OXIDE 25 mg capsule 02-20 00:00: 00 Yes [id number] 25mg Take 1 capsule by mouth every 6 (six) hours as needed for Anxiety, Agitation, Heart Rate => 100 or Detox. [facility] predniSONE 10 mg tablet 02-20 00:00: 00 Yes [id number] TAKE ONE TABLET BY MOUTH DAILY [facility] albuterol 90 mcg/actuati on inhaler 02-20 00:00: 00 Yes [id number] 2{puff} Inhale 2 Puffs every 4 (four) hours as needed for Wheezing or Shortness of Breath. [facility] albuterol 2.5 mg /3 mL (0.083 %) nebulizer solution 02-20 00:00: 00 Yes [id number] 2.5mg Inhale 3 mL every 4 (four) hours. May also nebulize one extra every 6 hours. [facility] budesonide- formoteroL 160-4.5 mcg/actuati on inhaler 02-20 00:00: 00 Yes [id number] 2{puff} Inhale 2 Puffs 2 (two) times daily. [facility] triamterene -hydrochlor othiazid 37.5-25 mg tablet 02-20 00:00: 00 Yes [id number] 1{tbl} Take 1 tablet by mouth daily. [facility] chlordiazeP OXIDE 25 mg capsule 02-20 00:00: 00 Yes [id number] 25mg Take 1 capsule by mouth every 6 (six) hours as needed for Anxiety, Agitation, Heart Rate => 100 or Detox. [facility] albuterol 5 mg/mL nebulizer solution 07-16 14:02: 20 Yes 2.5mg Inhale 2.5 mg every 6 (six) hours as needed for Wheezing or Shortness of Breath. [facility] albuterol 5 mg/mL nebulizer solution 07-16 14:02: 20 Yes 2.5mg Inhale 2.5 mg every 6 (six) hours as needed for Wheezing or Shortness of Breath. [facility] albuterol 5 mg/mL nebulizer solution 07-16 14:02: 20 Yes 2.5mg Inhale 2.5 mg every 6 (six) hours as needed for Wheezing or Shortness of Breath. [facility] albuterol 5 mg/mL nebulizer solution 07-16 14:02: 20 Yes 2.5mg Inhale 2.5 mg every 6 (six) hours as needed for Wheezing or Shortness of Breath. [facility] budesonide- formoterol 160-4.5 mcg/actuati on inhaler 07-16 00:00: 00 Yes 2{puff} Inhale 2 Puffs 2 (two) times daily. [facility] albuterol 2.5 mg /3 mL (0.083 %) nebulizer solution 07-16 00:00: 00 Yes 2.5mg Inhale 3 mL every 4 (four) hours as needed for Wheezing or Shortness of Breath. [facility] bud[facility] formoterol 160-4.5 mcg/actuati on inhaler 07-16 00:00: 00 Yes 2{puff} Inhale 2 Puffs 2 (two) times daily. [facility] albuterol 2.5 mg /3 mL (0.083 %) nebulizer solution 07-16 00:00: 00 Yes 2.5mg Inhale 3 mL every 4 (four) hours as needed for Wheezing or Shortness of Breath. [facility] budesonide- formoterol 160-4.5 mcg/actuati on inhaler 07-16 00:00: 00 Yes 2{puff} Inhale 2 Puffs 2 (two) times daily. [facility] albuterol 2.5 mg /3 mL (0.083 %) nebulizer solution 07-16 00:00: 00 Yes 2.5mg Inhale 3 mL every 4 (four) hours as needed for Wheezing or Shortness of Breath. [facility] budesonide- formoterol 160-4.5 mcg/actuati on inhaler 07-16 00:00: 00 Yes 2{puff} Inhale 2 Puffs 2 (two) times daily. [facility] albuterol 2.5 mg /3 mL (0.083 %) nebulizer solution 07-16 00:00: 00 Yes 2.5mg Inhale 3 mL every 4 (four) hours as needed for Wheezing or Shortness of Breath. [facility] triamterene -hydrochlor othiazide 37.5-25 mg per capsule 03-26 16:32: 14 Yes 1{capsu le} Take 1 capsule by mouth every morning. [facility] amLODIPine 10 mg tablet 03-26 16:32: 14 Yes 10mg Take 10 mg by mouth at bedtime. [facility] gabapentin 100 mg capsule 03-26 16:32: 14 Yes 100mg Take 100 mg by mouth 2 (two) times daily as needed (MSK pain). [facility] foLIC acid 1 mg tablet 03-26 16:32: 14 Yes 1mg Take 1 mg by mouth daily. [facility] triamterene -hydrochlor othiazide 37.5-25 mg per capsule 03-26 16:32: 14 Yes 1{capsu le} Take 1 capsule by mouth every morning. [facility] amLODIPine 10 mg tablet 03-26 16:32: 14 Yes 10mg Take 10 mg by mouth at bedtime. [facility] gabapentin 100 mg capsule 03-26 16:32: 14 Yes 100mg Take 100 mg by mouth 2 (two) times daily as needed (MSK pain). [facility] foLIC acid 1 mg tablet 03-26 16:32: 14 Yes 1mg Take 1 mg by mouth daily. [facility] triamterene -hydrochlor othiazide 37.5-25 mg per capsule 03-26 16:32: 14 Yes 1{capsu le} Take 1 capsule by mouth every morning. [facility] amLODIPine 10 mg tablet 03-26 16:32: 14 Yes 10mg Take 10 mg by mouth at bedtime. [facility] gabapentin 100 mg capsule 03-26 16:32: 14 Yes 100mg Take 100 mg by mouth 2 (two) times daily as needed (MSK pain). [facility] foLIC acid 1 mg tablet 03-26 16:32: 14 Yes 1mg Take 1 mg by mouth daily. [facility] triamterene -hydrochlor othiazide 37.5-25 mg per capsule 03-26 16:32: 14 Yes 1{capsu le} Take 1 capsule by mouth every morning. [facility] amLODIPine 10 mg tablet 03-26 16:32: 14 Yes 10mg Take 10 mg by mouth at bedtime. [facility] gabapentin 100 mg capsule 03-26 16:32: 14 Yes 100mg Take 100 mg by mouth 2 (two) times daily as needed (MSK pain). [facility] foLIC acid 1 mg tablet 03-26 16:32: 14 Yes 1mg Take 1 mg by mouth daily. [facility] budesonide- formoterol 160-4.5 mcg/actuati on inhaler 03-26 00:00: 00 Yes 2{puff} Inhale 2 Puffs 2 (two) times daily. [facility] budesonide- formoterol 160-4.5 mcg/actuati on inhaler 03-26 00:00: 00 Yes 2{puff} Inhale 2 Puffs 2 (two) times daily. [facility] budesonide- formoterol 160-4.5 mcg/actuati on inhaler 03-26 00:00: 00 Yes 2{puff} Inhale 2 Puffs 2 (two) times daily. [facility] budesonide- formoterol 160-4.5 mcg/actuati on inhaler 03-26 00:00: 00 Yes 2{puff} Inhale 2 Puffs 2 (two) times daily. [facility] Immunizations Ordered Immunization Name Filled Immunization Name Date Status Comments Source SARS-COV-2 COVID-19 PFIZER VACCINE 2021-02-03 00:00:00 Completed [facility] SARS-COV-2 COVID-19 PFIZER VACCINE 2021-02-03 00:00:00 Completed [facility] SARS-COV-2 COVID-19 PFIZER VACCINE 2021-02-03 00:00:00 Completed [facility] SARS-COV-2 COVID-19 PFIZER VACCINE 2021-01-13 00:00:00 Completed [facility] SARS-COV-2 COVID-19 PFIZER VACCINE 2021-01-13 00:00:00 Completed [facility] SARS-COV-2 COVID-19 PFIZER VACCINE 2021-01-13 00:00:00 Completed [facility] Pneumococcal Polysaccharide, PPSV23 (PNEUMOVAX) 2018-03-26 00:00:00 Completed [facility] Influenza Virus Vaccine Quad IM 3+ YRS 2018-03-26 00:00:00 Completed [facility] Pneumococcal Polysaccharide, PPSV23 (PNEUMOVAX) 2018-03-26 00:00:00 Completed [facility] Influenza Virus Vaccine Quad IM 3+ YRS 2018-03-26 00:00:00 Completed [facility] Pneumococcal Polysaccharide, PPSV23 (PNEUMOVAX) 2018-03-26 00:00:00 Completed [facility] Influenza Virus Vaccine Quad IM 3+ YRS 2018-03-26 00:00:00 Completed [facility] Pneumococcal Polysaccharide, PPSV23 (PNEUMOVAX) [facility] Influenza Virus Vaccine Quad IM 3+ YRS Unknown Completed [facility] SARS-COV-2 COVID-19 PFIZER VACCINE Unknown Completed [facility] SARS-COV-2 COVID-19 PFIZER VACCINE Unknown Completed [facility] Vital Signs Vital Name Observation Time Observation Value Comments S ource Systolic blood pressure 2023-10-27 06:54:00 133 mm[Hg] [facility] Diastolic blood pressure 2023-10-27 06:54:00 94 mm[Hg] [facility] Heart rate 2023-10-27 06:54:00 95 /min [facility] Body temperature 2023-10-27 06:54:00 36.44 Debbie [facility] Respiratory rate 2023-10-27 06:54:00 22 /min [facility] Body height 2023-10-27 06:54:00 162.6 cm [facility] Body weight 2023-10-27 06:54:00 78.472 kg [facility] BMI 2023-10-27 06:54:00 29.70 kg/m2 [facility] Oxygen saturation in Arterial blood by Pulse oximetry 2023-10-27 06:54:00 94 /min [facility] Systolic blood pressure 2022-10-14 19:43:00 111 mm[Hg] [facility] Diastolic blood pressure 2022-10-14 19:43:00 74 mm[Hg] [facility] Heart rate 2022-10-14 19:43:00 98 /min [facility] Body temperature 2022-10-14 19:43:00 36.39 Debbie [facility] Respiratory rate 2022-10-14 19:43:00 22 /min [facility] Oxygen saturation in Arterial blood by Pulse oximetry 2022-10-14 19:43:00 94 /min [facility] Body height 2022-10-14 16:13:00 162.6 cm [facility] Body weight 2022-10-14 16:13:00 81.647 kg [facility] BMI 2022-10-14 16:13:00 30.90 kg/m2 [facility] Systolic blood pressure 2022-03-12 10:13:00 119 mm[Hg] [facility] Diastolic blood pressure 2022-03-12 10:13:00 75 mm[Hg] [facility] Heart rate 2022-03-12 10:13:00 105 [facility] Body temperature 2022-03-12 10:13:00 37.28 Debbie [facility] Respiratory rate 2022-03-12 10:13:00 19 /min [facility] Body height 2022-03-12 10:13:00 162.6 cm [facility] Body weight 2022-03-12 10:13:00 99.791 kg [facility] BMI 2022-03-12 10:13:00 37.76 kg/m2 [facility] Oxygen saturation in Arterial blood by Pulse oximetry 2022-03-12 10:13:00 96 /min [facility] Systolic blood pressure 2022-02-20 11:57:00 155 mm[Hg] [facility] Diastolic blood pressure 2022-02-20 11:57:00 88 mm[Hg] [facility] Heart rate 2022-02-20 11:57:00 105 /min [facility] Respiratory rate 2022-02-20 11:57:00 18 /min [facility] Oxygen saturation in Arterial blood by Pulse oximetry 2022-02-20 11:57:00 100 /min [facility] Body temperature 2022-02-20 09:25:00 37 Debbie [facility] Body height 2022-02-20 09:25:00 162.6 cm [facility] Body weight 2022-02-20 09:25:00 96.163 kg [facility] BMI 2022-02-20 09:25:00 36.39 kg/m2 [facility] Procedures Procedure Date / Time Performed Performing Clinician Source COVID-19 (ID NOW RAPID TESTING) 2023-10-27 07:09:00 Jac Navarro [facility] NOTICE OF PRIVACY PRACTICES 2023-10-27 06:49:48 Doctor Unassigned, [facility] CONSENT/REFUSAL FOR DIAGNOSIS AND TREATMENT 2023-10-27 06:47:40 Doctor Unassigned, [facility] CT ABDOMEN PELVIS W CONTRAST 2022-10-14 17:33:00 Singer [facility] XR CHEST 1 VW 2022-10-14 17:10:37 Singer [facility] TROPONIN I 2022-10-14 16:37:00 [facility] COMP. METABOLIC PANEL ([id number]) 2022-10-14 16:37:00 Singer [facility] CBC WITH DIFF 2022-10-14 16:37:00 Singer [facility] PROTHROMBIN TIME / INR 2022-10-14 16:37:00 Wali Maciel [facility] URINALYSIS 2022-10-14 16:37:00 Singer [facility] N-TERMINAL PRO-BNP 2022-10-14 16:37:00 Singer [facility] CONSENT/REFUSAL FOR DIAGNOSIS AND TREATMENT 2022-10-14 15:56:36 Doctor Unassigned, [facility] CONSENT/REFUSAL FOR DIAGNOSIS AND TREATMENT 2022-03-12 10:03:12 Doctor Unassigned, [facility] XR CHEST 1 VW 2022-02-20 09:59:00 Christy Shaw [facility] LIPASE 2022-02-20 09:30:00 Christy Shaw [facility] TROPONIN I 2022-02-20 09:30:00 Christy Shaw [facility] COMP. METABOLIC PANEL ([id number]) 2022-02-20 09:30:00 Christy Shaw [facility] CBC WITH DIFF 2022-02-20 09:30:00 [facility] 2022-02-20 09:30:00 Christy Shaw [facility] NOTICE OF PRIVACY PRACTICES 2022-02-20 09:15:02 Doctor Unassigned, [facility] CONSENT/REFUSAL FOR DIAGNOSIS AND TREATMENT 2022-02-20 09:14:47 Doctor Unassigned, [facility] Encounters Start Date/Time End Date/Time Encounter Type Admission Type Attending [facility] Care Department Encounter ID Source 2023-10-27 00:49:00 2023-10-27 01:41:00 Emergency X JAC NAVARRO [facility] ERT [id number] [facility] 2023-10-27 00:49:00 2023-10-27 01:41:00 Emergency Jac Navarro [facility] [id number] [facility] 2023-07-15 00:00:00 2023-07-15 00:00:00 Outpatient DARIEN LOBO [id number] Maria Elena [facility] 2023-06-16 11:30:00 2023-06-16 11:30:00 Outpatient DARIEN LOBO [id number] Maria Elena [facility] 2023-05-18 00:00:00 2023-05-18 00:00:00 Outpatient MARIA ELENA CHAN [id number] Maria Elena [facility] 2022-10-14 10:07:00 2022-10-14 14:39:00 Emergency X MELINDA MACIEL [facility] ERT [id number] [facility] 2022-10-14 10:07:00 2022-10-14 14:39:00 Emergency Melinda Maciel [facility] [id number] [facility] 2022-03-12 05:15:00 2022-03-12 06:41:00 Emergency X CHRISTY SHAW [facility] ERT [id number] [facility] 2022-03-12 05:15:00 2022-03-12 06:41:00 [facility] [id number] [facility] 2022-02-20 04:17:00 2022-02-20 07:16:00 Emergency X CHRISTY SHAW [facility] ERT [id number] [facility] 2022-02-20 04:17:00 2022-02-20 07:16:00 [facility] [id number] [facility] 2021-02-03 11:10:00 2021-02-03 11:10:00 Outpatient R DENISE SUNG [facility] [id number] [facility] 2021-01-13 11:20:00 2021-01-13 11:20:00 Outpatient [facility] [id number] [facility] 2020-11-10 08:20:00 2020-11-10 08:20:00 Outpatient R KARLEY ADAMS [facility] [id number] [facility] Results Test Description Test Time Test Comments Results Result Co mments Source [id number] 10:13:01* Test Item Value Reference Range Interpretation Comme nts NT-proBNP (test code = 8039948641) 52 pg/mL See_Comment [Automated message] The system which generated this result transmitted reference range: <=125. The reference range was not used to interpret this result as normal/abnormal. LOUISE (test code = LOUISE) Biotin has been reported to cause a negative bias, interpret results relative to patient's use of biotin. Lab Interpretation (test code = 12697-0) Normal [facility]. METABOLIC PANEL (77134)2022-02-20 10:04:02* Test Item Value Reference Range Interpretation Comme nts NA (test code = 7998439455) 137 mmol/L 135-145 K (test code = 0071611010) 3.6 mmol/L 3.5-5.0 CL (test code = 6937716096) 99 mmol/L 98-108 CO2 TOTAL (test code = 5774761342) 25 mmol/L 23-31 AGAP (test code = 7458153973) 2-16 BUN (test code = 7237688196) 6 mg/dL 7-23 L GLUCOSE (test code = 2552972394) 88 mg/dL 70-110 CREATININE (test code = 8315763857) 0.55 mg/dL 0.60-1.25 L TOTAL BILI (test code = 7028969855) 0.8 mg/dL 0.1-1.1 CALCIUM (test code = 1569425628) 8.9 mg/dL 8.6-10.6 T PROTEIN (test code = 8058782646) 7.5 g/dL 6.3-8.2 ALBUMIN (test code = 1278273944) 4.8 g/dL 3.5-5.0 ALK PHOS (test code = 2041367501) 113 U/L 34-122 ALTv (test code = 1742-6) 84 U/L 5-50 H AST(SGOT) (test code = 5254748037) 107 U/L 13-40 H eGFR (test code = 9549291654) mL/min/1.73m2 LOUISE (test code = LOUISE) Association of [...] or abnormalities in imaging tests). Lab Interpretation (test code = 11343-3) [facility] [id number] 10:03:21* Test Item Value Reference Range Interpretation Comme nts LIPASE (test code = 2315114939) 193 U/L 0-220 Lab Interpretation (test cod e = 81597-3) Normal [facility] [id number] 09:39:17* Test Item Value Reference Range Interpretation Comme nts WBC (test code = 6690-2) See_Comment [Automated [employer]] The system which generated this result transmitted reference range: 4.20 - 10.70 10*3/?L. The reference range was not used to interpret this result as normal/abnormal. RBC (test code = 789-8) See_Comment [Automated [employer]] The system which generated this result transmitted reference range: 4.26 - 5.52 10*6/?L. The reference range was not used to interpret this result as normal/abnormal. HGB (test code = 718-7) 17.1 g/dL 12.2-16.4 H HCT (test code = 4544-3) 48.2 % 38.4-49.3 MCV (test code = 787-2) 100.2 fL 81.7-95.6 H MCH (test code = 785-6) 35.6 pg 26.1-32.7 H MCHC (test code = 786-4) 35.5 g/dL 31.2-35.0 H RDW-SD (test code = 84941-9) 44.4 fL 38.5-51.6 RDW-CV (test code = 788-0) 11.9 % 12.1-15.4 L PLT (test code = 777-3) See_Comment [Automated messa ge] The system which generated this result transmitted reference range: 150 - 328 10*3/?L. The reference range was not used to interpret this result as normal/abnormal. MPV (test code = 25235-4) 9.2 fL 9.8-13.0 L NRBC/100 WBC (test code = 1173466940) See_Comment [Automated [employer] ssage] The system which generated this result transmitted reference range: 0.0 - 10.0 /100 WBCs. The reference range was not used to interpret this result as normal/abnormal. NRBC x10^3 (test code = 8528828712) <0.01 See_Comment [Automated messa ge] The system which generated this result transmitted reference range: 10*3/?L. The reference range was not used to interpret this result as normal/abnormal. GRAN MAT (NEUT) % (test code = 770-8) 69.9 % IMM GRAN % (test code = 4551852872) 1.50 % LYMPH % (test code = 736-9) 18.9 % MONO % (test code = 5905-5) 7.0 % EOS % (test code = 713-8) 1.9 % BASO % (test code = 706-2) 0.8 % GRAN MAT x10^3(ANC) (test code = 4212341512) 7.15 10*3/uL 1.99-6.95 H IMM GRAN x10^3 (test code = 8893076473) 0.15 10*3/uL 0.00-0.06 H LYMPH x10^3 (test code = 731-0) 1.93 10*3/uL 1.09-3.23 MONO x10^3 (test code = 742-7) 0.72 10*3/uL 0.36-1.02 EOS x10^3 (test code = 711-2) 0.19 10*3/uL 0.06-0.53 BASO x10^3 (test code = 704-7) 0.08 10*3/uL 0.01-0.09 Lab Interpretation (test code = 50566-5) Abnormal [facility]"
[2023-11-01 01:35] LABS: Absolute Lymphocytes (CBC) 2.9 K/uL (0.7-4.9); Hematocrit 40.8 % (39.6-49.0); Lymphocytes % 23.6 % (15.3-44.8); MCV 102.2 fL (80-100); MPV 6.6 fL (7.6-11.3); Platelets 282 thou/uL (152-406); RBC Red Blood Cell Count 3.99 M/uL (4.33-5.43)
[2023-11-01 01:49] LABS: Arterial Blood Carboxyhemoglob 6.3 % (0-1.5); Blood Gas Oxyhemoglobin 73.5 % (94-97); Blood O2 Saturation 80.1 % (92-98.5)
[2023-11-01 01:53] LABS: Troponin High Sensitivity 6.2 pg/mL (<58.9)
[2023-11-01 01:54] LABS: Magnesium 2.1 mg/dL (1.6-2.4)
--- NOTE | 2023-11-01 02:20 | ER ---
Nurse's Notes [facility] Name: Randy Briones Age: 53 yrs Sex: Male : 1970 Arrival Date: 11/01/2023 Time: 00:45 Bed 18 Private MD: Diagnosis: Presentation: 11/01 00:52 Chief complaint: EMS states: We were called out for trouble breathing, when we arrived vc1 he was sitting outside smoking a cigarette. Complaining of chest pain and shortness of breath. Says he was been on a 2 week binge of drinking. Coronavirus screen: Vaccine status: Patient reports receiving the 2nd dose of the covid vaccine. At this time, the client does not indicate any symptoms associated with coronavirus-19. Ebola Screen: Patient negative for fever greater than or equal to 101.5 degrees Fahrenheit, and additional compatible Ebola Virus Disease symptoms Patient denies exposure to infectious person. Patient denies travel to an Ebola-affected area in the 21 days before illness onset. No symptoms or risks identified at this time. Initial Sepsis Screen: Does the patient meet any 2 criteria? HR > 90 bpm. No. Patient's initial sepsis screen is negative. Does the patient have a suspected source of infection? No. Patient's initial sepsis screen is negative. Risk Assessment: Do you want to hurt yourself or someone else? Patient reports no desire to harm self or others. Onset of symptoms was November 01, 2023. 00:52 Method Of Arrival: EMS: [facility] vc1 00:52 Acuity: CANDACE 3 vc1 Triage Assessment: 00:57 General: Appears in no apparent distress. uncomfortable, Behavior is calm, cooperative, vc1 appropriate for age. Pain: Complains of pain in chest Pain does not radiate. Pain currently is 8 out of 10 on a pain scale. Quality of pain is described as sharp, Also complains of shortness of breath. EENT: No deficits noted. No signs and/or symptoms were reported regarding the EENT system. Neuro: Level of Consciousness is awake, alert, obeys commands, Oriented to person, place, time, situation, Appropriate for age. Cardiovascular: No deficits noted. Reports chest pain, shortness of breath. Respiratory: Airway is patent Respiratory effort is even, unlabored, Respiratory pattern is regular, symmetrical, the patient has mild shortness of breath. GI: No deficits noted. No signs and/or symptoms were reported involving the gastrointestinal system. : No deficits noted. No signs and/or symptoms were reported regarding the genitourinary system. Derm: No deficits noted. No signs and/or symptoms reported regarding the dermatologic system. Musculoskeletal: No deficits noted. No signs and/or symptoms reported regarding the musculoskeletal system. Historical: - Allergies: 00:55 Lisinopril; vc1 - PMHx: 00:55 Alcoholism; COPD; home 02 3LNC PRN; Hypertension; vc1 - PSHx: 00:55 Amputation of left index finger; vc1 - Immunization history:: Adult Immunizations up to date. - Social history:: Smoking status: Patient reports the use of cigarette tobacco products, smokes one-half pack cigarettes per day. Screenin:59 [facility] ED Fall Risk Assessment (Adult) History of falling in the last 3 months, vc1 including since admission No falls in past 3 months (0 pts) Confusion or Disorientation No (0 pts) Intoxicated or Sedated No (0 pts) Impaired Gait No (0 pts) Mobility Assist Device Used No (0 pt) Altered Elimination No (0 pt) Score/Fall Risk Level 0 - 2 = Low Risk Oriented to surroundings, Maintained a safe environment, Educated pt \T\ family on fall prevention, incl call for assistance when getting out of bed. Abuse screen: Denies threats or abuse. Nutritional screening: No deficits noted. Tuberculosis screening: No symptoms or risk factors identified. 01:15 Clinical [place] Withdrawal Assessment for Alcohol, revised (CIWA-Ar): pf1 Nausea/Vomitin - No nausea or vomiting Headache: 4 - Moderately Severe Paroxysmal Sweats: 0 - No sweats visible Anxiety: 0 - No anxiety, at ease Agitation: 0 - Normal actiivty Tremor: 1 - Not visible, but can be felt at fingertips Auditory Disturbances: 0 - Not present Visual Disturbances: 0 - Not present Tactile Disturbances: 0 - None Orientation and Clouding of Sensorium: 0 - Oriented and can do serial additions Total Score: < 10 Very mild withdrawal. Assessment: 01:20 General: Appears in no apparent distress. comfortable, well developed, Behavior is pf1 calm, cooperative, appropriate for age, quiet. 01:20 Pain: Complains of pain in chest Pain currently is 8 out of 10 on a pain scale. Neuro: pf1 No deficits noted. Level of Consciousness is awake, alert, obeys commands, Oriented to person, place, time, situation. Cardiovascular: Reports chest pain, shortness of breath, Capillary refill < 3 seconds Patient's skin is warm and dry. Respiratory: Reports shortness of breath on exertion Airway is patent Respiratory effort is even, unlabored, Respiratory pattern is regular, symmetrical. Respiratory: Breath sounds with rhonchi bilaterally. GI: No deficits noted. No signs and/or symptoms were reported involving the gastrointestinal system. GI: Abdomen is round non-distended. : No deficits noted. No signs and/or symptoms were reported regarding the genitourinary system. EENT: No deficits noted. No signs and/or symptoms were reported regarding the EENT system. Derm: No deficits noted. No signs and/or symptoms reported regarding the dermatologic system. Vital Signs: 00:52 BP 147 / 90; Pulse 104; Resp 20; Temp 98; Pulse Ox 98% on 4 lpm NC; Weight 79.38 kg; vc1 Height 5 ft. 4 in. ; Pain 8/10; 01:30 BP 140 / 98; Pulse 90; Resp 18; Pulse Ox 98% on 3 lpm NC; Pain 6/10; pf1 00:52 Body Mass Index 30.04 (79.38 kg, 162.56 cm) vc1 00:52 Pain Scale: Adult vc1 01:30 Pain Scale: Adult pf1 ED Course: 00:51 Patient arrived in ED. vc1 00:55 Triage completed. vc1 00:55 Maintain EMS IV. Dressing intact. Good blood return noted. Site clean \T\ dry. Gauge \T\ pf 1 site: 20gauge to left forearm. 00:55 No provider procedures requiring assistance completed. pf1 00:56 Arm band placed on right wrist. vc1 00:58 Purvi Barba is Attending Physician. ci 01:26 ETOH Level Sent. pf1 01:26 Basic Metabolic Panel Sent. pf1 01:26 CBC with Diff Sent. pf1 01:26 Magnesium Sent. pf1 01:26 NT PRO-BNP Sent. pf1 01:26 Troponin HS Sent. pf1 01:44 XRAY Chest (1 view) In Process Unspecified. EDMS 01:54 IV discontinued, intact, bleeding controlled, No redness/swelling at site. Pressure pf1 dressing applied, removed by patient. Administered Medications: No medications were administered Medication: 01:09 VIS not applicable for this client. vc1 Outcome: 01:54 AMA Left before signing form, pf1 01:54 Condition: improved pf1 02:19 Patient left the ED. pf1 Signatures: Dispatcher [employer] EDMS Piper Humphrey RN RN vc1 Yary Chávez RN RN pf1 Purvi Barba
[2023-11-01 03:53] VITALS: BP 140/98; TEMP 98; O2SAT 98
--- NOTE | 2023-11-02 02:20 | EDPHYS ---
Physician Documentation [facility] Name: Randy Briones Age: 53 yrs Sex: Male : 1970 Arrival Date: 11/01/2023 Time: 00:45 Bed 18 Private MD: ED Physician Purvi Barba HPI: 11/01 03:38 This 53 yrs old Male presents to ER via EMS with unknown complaint. ci 03:38 Patient is a 53-year-old male with PMH COPD on 3 L home O2, hypertension, EtOH ci dependence who presents to the ED with chief complaint of shortness of breath, chest pain and possible alcohol withdrawal. EMS was called for shortness of breath, upon their arrival, patient was sitting smoking a cigarette. Giving DuoNeb and Solu-Medrol 125 mg by EMS. Patient endorses midsternal chest pressure that is nonradiating, took 1 nitroglycerin with no improvement. Patient also reports that he has been on a 2-week binge drink of [employer] beer, last drink was about 3 hours ago. Patient reports that he is shaking and feels like he may be going into withdrawal. Historical: - Allergies: 00:55 Lisinopril; vc1 - PMHx: 00:55 Alcoholism; COPD; home 02 3LNC PRN; Hypertension; vc1 - PSHx: 00:55 Amputation of left index finger; vc1 - Immunization history:: Adult Immunizations up to date. - Social history:: Smoking status: Patient reports the use of cigarette tobacco products, smokes one-half pack cigarettes per day. ROS: 03:38 Constitutional: ci 03:38 Cardiovascular: Positive for chest pain, 03:38 Respiratory: Positive for shortness of breath, wheezing, 03:38 Psych: Positive for anxiety, Exam: 03:38 Constitutional: This is a well developed, well nourished patient who is awake, alert, ci and in no acute distress. Head/Face: Normocephalic, atraumatic. Eyes: Pupils equal round and reactive to light, extra-ocular motions intact. Lids and lashes normal. Conjunctiva and sclera are non-icteric and not injected. Cornea within normal limits. Periorbital areas with no swelling, redness, or edema. ENT: Nares patent. No nasal discharge, no septal abnormalities noted. Tympanic membranes are normal and external auditory canals are clear. Oropharynx with no redness, swelling, or masses, exudates, or evidence of obstruction, uvula midline. Mucous membranes moist. Neck: Trachea midline, no thyromegaly or masses palpated, and no cervical lymphadenopathy. Supple, full range of motion without nuchal rigidity, or vertebral point tenderness. No Meningismus. Chest/axilla: Normal chest wall appearance and motion. Nontender with no deformity. No lesions are appreciated. Cardiovascular: Regular rate and rhythm with a normal S1 and S2. No gallops, murmurs, or rubs. Normal PMI, no JVD. No pulse deficits. Respiratory: Lungs have equal breath sounds bilaterally, clear to auscultation and percussion. No rales, rhonchi or wheezes noted. No increased work of breathing, no retractions or nasal flaring. Abdomen/GI: Soft, non-tender, with normal bowel sounds. No distension or tympany. No guarding or rebound. No evidence of tenderness throughout. Back: No spinal tenderness. No costovertebral tenderness. Full range of motion. Skin: Warm, dry with normal turgor. Normal color with no rashes, no lesions, and no evidence of cellulitis. MS/ Extremity: Pulses equal, no cyanosis. Neurovascular intact. Full, normal range of motion. Neuro: Awake and alert, GCS 15, oriented to person, place, time, and situation. Cranial nerves II-XII grossly intact. Motor strength 5/5 in all extremities. Sensory grossly intact. Cerebellar exam normal. Normal gait. Psych: Awake, alert, with orientation to person, place and time. Behavior, mood, and affect are within normal limits. Vital Signs: 00:52 BP 147 / 90; Pulse 104; Resp 20; Temp 98; Pulse Ox 98% on 4 lpm NC; Weight 79.38 kg; vc1 Height 5 ft. 4 in. ; Pain 8/10; 01:30 BP 140 / 98; Pulse 90; Resp 18; Pulse Ox 98% on 3 lpm NC; Pain 6/10; pf1 00:52 Body Mass Index 30.04 (79.38 kg, 162.56 cm) vc1 00:52 Pain Scale: Adult vc1 01:30 Pain Scale: Adult pf1 MDM: 01:07 Patient medically screened. ci 03:38 Differential Diagnosis COPD exacerbation, ACS, pneumonia, EtOH withdrawal. Data ci reviewed: vital signs, nurses notes, lab test result(s), EKG. I considered the following discharge prescriptions or medication management in the emergency department Received 1 DuoNeb, 125 Solu-Medrol and 4 baby aspirin prior to arrival by EMS.. Independent interpretation of the following test(s) in the Emergency Department EKG: See my EKG interpretation above. Historians other than the Patient: EMS: . Care significantly affected by the following chronic conditions: Hypertension, Chronic Obstructive Pulmonary Disease, EtOH abuse. Care significantly affected by the following Social Determinants of Health: Misuse of alcohol and/or drugs. Scoring Tools HEART Score: History: Slightly Suspicious (0) ECG: Normal (0) Age: > 45 and < 65 years (1) Risk Factors: 1 or 2 Risk factors (1) Troponin: < or = 1 x Normal limit (0) Total Score = 2. Counseling: I had a detailed discussion with the patient and/or guardian regarding smoking cessation. Refusal of service: The patient/guardian displays adequate decision making capability and despite a detailed discussion of alternatives, benefits, risks, and consequences refuses:. ED course: Presents with shortness of breath, chest pain, concern for alcohol withdrawal. Reports he had pneumonia a week ago but left the hospital AMA. He is nontoxic-appearing, vital signs stable. Received aspirin prior to arrival. Patient has equal pulses, no neurodeficits, low suspicion for aortic dissection. CIWA score of 5, benzos not required at this time. Prior to complete workup, patient left AMA without signing papers.. 11/01 01:00 Order name: Basic Metabolic Panel; Complete Time: 03:36 ci 11/01 01:00 Order name: CBC with Diff; Complete Time: 01:51 ci 11/01 Interpretation: Abnormal: WBC 12.40. ci 11/01 01:00 Order name: Magnesium; Complete Time: 03:36 ci 11/01 01:00 Order name: NT PRO-BNP; Complete Time: 03:36 ci 11/01 01:00 Order name: Troponin HS; Complete Time: 03:36 ci 11/01 01:00 Order name: ABG; Complete Time: 03:36 ci 11/01 01:00 Order name: ETOH Level; Complete Time: 03:36 ci 11/01 03:36 Interpretation: Abnormal: ETOH 288. ci 11/01 01:00 Order name: XRAY Chest (1 view) ci 11/01 01:00 Order name: EKG; Complete Time: 01:01 ci 11/01 01:00 Order name: Cardiac monitoring; Complete Time: 01:14 ci 11/01 01:00 Order name: EKG - Nurse/Tech; Complete Time: 01:14 ci 11/01 01:00 Order name: IV Saline Lock; Complete Time: 01:14 ci 11/01 01:00 Order name: Labs collected and sent; Complete Time: 01:26 ci 11/01 01:00 Order name: O2 Per Protocol; Complete Time: 01:14 ci 11/01 01:00 Order name: O2 Sat Monitoring; Complete Time: 01:14 ci 11/01 01:07 Order name: Misc. Order: CIWA now, then q2hrs, notify physician >8 ; Complete Time: ci 01:26 Administered Medications: No medications were administered Disposition Summary: 11/01/23 02:19 Left Against Medical Advice Notes: Location: Home pf1 Condition: Stable pf1 Signatures: Dispatcher [employer] EDMS Piper Humphrey RN RN vc1 Yary Chávez RN RN pf1 Purvi Barba ci
--- NOTE | 2023-11-02 11:19 | RAD REPORT ---
EXAM DESCRIPTION: RAD - Chest Single View - 11/01/2023 1:42 am CLINICAL HISTORY: 53 years, Male, CHEST PAIN COMPARISON: 10/12/2023 FINDINGS: 1 views of the chest was obtained. Prior films were compared. There is normal lung volum e. The patient is rotated towards the right. Mediastinum: The cardiomediastinal silhouette appears normal in size and shape. Lungs: The right lung is clear. The left lung demonstrates slight increase obscuration/ill-defined op acity/density with a disc correspond to early infiltrate, layering pleural effusion and/or the possib ility of minimal atelectasis are of consideration. Heart: The heart is normal in size. Aorta: The thoracic aorta demonstrate to be within normal limits.. Pulmonary vasculature: The pulmonary vasculature is normal in distribution. Pleura: The costophrenic angles demonstrate to be sharp. Osseous structures: The bony structures demonstrate to be within normal limits. Tubes and lines: External EKG leads within the [id number] limits diagnosis. IMPRESSION: Slight increase in obscuration/ill-defined opacity/density left lung base with a disc co rrespond to early infiltrate, layering pleural effusion and/or the possibility of minimal atelectasis . Electronically signed by: Ezio Lester MD 11/01/2023 02:19 AM TREAD CUTTER Due to temporary technical issues with the PACS/Fluency reporting system, reports are being signed by the in house radiologists without review as a courtesy to insure prompt reporting. The interpreting radiologist is fully responsible for the content of the report.
== END ==
LOC: ER 00:45
DX: R07.9 Chest pain, unspecified (principal); R06.02 Shortness of breath; F41.9 Anxiety disorder, unspecified; J44.9 Chronic obstructive pulmonary disease, unspecified; F10.20 Alcohol dependence, uncomplicated; I10 Essential (primary) hypertension; F17.210 Nicotine dependence, cigarettes, uncomplicated; Z99.81 Dependence on supplemental oxygen; Z88.8 Allergy status to other drugs, medicaments and biological substances
CPT/HCPCS: 36415; 36600; 71045; 80048; 82077; 82805; 83735; 83880; 84484; 85025; 93005; 99283

== ENCOUNTER 2023-11-02 22:44 | Inpatient (IN) | payer OTHER ==
--- OUTSIDE RECORDS SUMMARY | 2023-11-02 22:47 | XMS REPORT | Continuity of Care Document ---
Author Name Unknown Address [address] [facility] [address] [place] [address] [facility] Address [address] [facility] [address] [place] [address] Care Team Providers Care Pluck Separator Name Role Phone JOHN SANDRA Primary Care Physician Unavailab JAC Haddad Attending Clinician Unavailable Jac Navarro MD Attending Clinician [phone] DARIEN LOBO Attending Clinician Unavailable MARIA ELENA CHAN MEDICAL Attending George akins Unavailable MELINDA MACIEL Attending Clinician Unavailable Melinda Maciel DO Attending Clinician [phone] CHRISTY SHAW Attending Clinician Unavailable Christy Shaw MD Attending Clinician [phone] DENISE SUNG Attending Clinician Unavailable KARLEY ADAMS Attending Clinician Unavailable JAC NAVARRO Admitting Clinician Unavailable MELINDA MACIEL Admitting Clinician Unavailable CHRISTY SHAW Admitting Clinician Unavailable Payers Payer Name Policy Type Policy Number Effective Date Expirati on Date Source GLORIA GONSALVES [employer] [facility]: [employer] 94 [place] 9 [id number] 2023 00:00:00 Problems Condition Name Condition Details Condition Category Status Onset Date Resolution Date Last Treatment Date Treating Clinician Comments Source Acute exacerbati on of chronic obstructiv e pulmonary disease (COPD) Acute exacerbati on of chronic obstructiv e pulmonary disease (COPD) Disease Active 03-24 00:00: 00 [facility] Obesity (BMI 30-39.9) Obesity (BMI 30-39.9) Disease Active 03-24 00:00: 00 [facility] Allergies, Adverse Reactions, Alerts Allergy Name Allergy Type Status Severity Reaction(s) Onset Date Inactive Date Treating Clinician Comments Source Lisinopr il Propensi ty to adverse reaction s Active Anaphylaxis 03-24 00:00: 00 [facility] LISINOPR [place] DRUG INGREDI Active Anaphylaxis 03-24 00:00: 00 [facility] Social History Social Habit Start Date Stop Date Quantity Comments Source History of tobacco use Smokes tobacco daily [facility] function 2022-10-17 00:00:00 2022-10-17 00:00:00 [facility] Alcohol intake 2022-10-17 00:00:00 2022-10-17 00:00:00 4.29 /d [facility] Exposure to SARS-CoV-2 (event) 2022-10-04 00:00:00 2022-10-14 10:25:00 Not sure [facility] Tobacco use and exposure 2018-03-24 00:00:00 2018-03-24 00:00:00 User of smokeless tobacco [facility] Tobacco Comment 2018-03-24 00:00:00 2018-03-24 00:00:00 trying to quit [facility] Sex Ass[birth year] At 1970 00:00:00 1970 00:00:00 [facility] Smoking Status Start Date Stop Date Source Smokes tobacco daily 2018-03-24 00:00:00 [facility] Medications Ordered Medication Name Filled Medication Name Start Date Stop Date Current Medication? Ordering Clinician Indication Dosage Frequency Signature (SIG) Comments Components Source methylpredn isolone sod succ (SOLU-MEDRO L) injection 125 mg 2022-11 08:45: 00 10-27 20:44 :00 Yes 125mg 125 mg, Slow IV Push, ONCE, 1 dose, On Thu10/27/23 at 0245, STAT [facility] ipratropium -albuteroL (DUONEB) 0.5 mg-3 mg(2.5 mg base)/3 mL nebulizer solution 3 mL 2022-11 08:45: 00 10-27 20:44 :00 Yes 3mL 3 mL, Inhalation , ONCE NOW, 1 dose, On Thu10/27/23 at 0245, LAURYN [facility] diazePAM (VALIUM) tablet 10 mg 2022-11 07:45: 00 10-27 19:44 :00 Yes 10mg 10 mg, Oral, ONCE, 1 dose, On Thu10/27/23 at 0145, LAURYN [facility] levoFLOXaci n (LEVAQUIN) tablet 500 mg 2022-11 07:45: 00 10-27 19:44 :00 Yes 500mg 500 mg, Oral, ONCE, 1 dose, On Thu10/27/23 at 0145, LAURYN
Re ason for Anti-Infec tive: Empiric Non-Surgic al Prophylaxi s
Durat ion of therapy: Once (ED) [facility] iopamidol (ISOVUE 370-500 mL) injection 70 mL 2021-11 18:30: 00 10-14 18:30 :00 No [id number] 70mL 70 mL, Intravenou s, ONCE, 1 dose, On Thu10/14/22 at 1230, Routine [facility] methylpredn isolone sod succ (SOLU-MEDRO L) injection 125 mg 2021-11 18:00: 00 Yes 125mg 125 mg, Intravenou s, Q6H, First dose on Thu10/14/22 at 1200, Until Discontinu ed, Routine [facility] furosemide (LASIX) injection 40 mg 2021-11 17:45: 00 10-14 16:39 :00 No 40mg 40 mg, IV Push, ONCE, 1 dose, On Thu10/14/22 at 1145, LAURYN [facility] ipratropium -albuteroL (DUONEB) 0.5 mg-3 mg(2.5 mg base)/3 mL nebulizer solution 3 mL 2021-11 17:30: 00 10-14 16:41 :00 No 3mL 3 mL, Inhalation , ONCE, 1 dose, On Thu10/14/22 at 1130, Routine [facility] FENTanyl PF (SUBLIMAZE (PF)) injection 50 mcg 2021-11 16:45: 00 10-14 16:39 :00 No 50ug 50 mcg, Slow IV Push, ONCE, 1 dose, On Thu10/14/22 at 1045, Routine [facility] levoFLOXaci n 750 mg tablet 2021-11 00:00: 00 Yes [id number] 750mg Take 1 tablet by mouth every 24 (twenty-fo ur) hours. [facility] levoFLOXaci n 750 mg tablet 2021-11 00:00: 00 Yes [id number] 750mg Take 1 tablet by mouth every 24 (twenty-fo ur) hours. [facility] HYDROcodone -acetaminop hen (NORCO) 10-325 mg tablet 1 tablet -04 12:15: 00 03-12 11:21 :00 No 1{tbl} 1 tablet, Oral, ONCE, 1 dose, On Thu03/12/22 at 0715, Routine [facility] HYDROcodone -acetaminop hen 10-325 mg tablet 5-04 00:00: 00 03-20 04:59 :00 No [id number] 1{tbl} Take 1 tablet by mouth every 6 (six) hours as needed for Pain (scale 7-10) for up to 7 days. Indication s: acute pain [facility] ipratropium -albuteroL (DUONEB) 0.5 mg-3 mg(2.5 mg base)/3 mL nebulizer solution 3 mL 02-20 13:00: 00 Yes 3mL 3 mL, Inhalation , QID, First dose on Thu02/20/22 at 0800, Until Discontinu ed, Routine [facility] methylPREDN ISolone sod succ (SOLU-MEDRO L (PF)) injection 40 mg 02-20 11:45: 00 02-20 10:43 :00 No 40mg 40 mg, Intravenou s, ONCE, 1 dose, On Kym 02/20/22 at 0645, STAT [facility] foLIC acid (FOLATE) tablet 1 mg 02-20 11:45: 00 02-20 10:41 :00 No 1mg 1 mg, Oral, ONCE, 1 dose, On Kym 02/20/22 at 0645, LAURYN [facility] thiamine (VITAMIN B1) injection 100 mg 02-20 11:45: 00 02-20 10:43 :00 No 100mg 100 mg, Intravenou s, ONCE, 1 dose, On [facility] 02/20/22 at 0645, [facility] LORazepam (ATIVAN) injection 2 mg 02-20 11:45: 00 02-20 10:42 :00 No 2mg 2 mg, Slow IV Push, ONCE, 1 dose, On Kym 02/20/22 at 0645, STAT [facility] ipratropium -albuteroL (DUONEB) 0.5 mg-3 mg(2.5 mg base)/3 mL nebulizer solution 3 mL 02-20 10:30: 00 02-20 09:34 :00 No 3mL 3 mL, Inhalation , ONCE, 1 dose, On [facility] 02/20/22 at 0530, Routine [facility] predniSONE 10 mg tablet 02-20 00:00: 00 Yes [id number] TAKE ONE TABLET BY MOUTH DAILY [facility] albuterol 90 mcg/actuati on inhaler 02-20 00:00: 00 Yes [id number] 2{puff} Inhale 2 Puffs every 4 (four) hours as needed for Wheezing or Shortness of Breath. [facility] albuterol 2.5 mg /3 mL (0.083 %) nebulizer solution 02-20 00:00: 00 Yes [id number] 2.5mg Inhale 3 mL every 4 (four) hours. May also nebulize one extra every 6 hours. [facility] budesonide- formoteroL 160-4.5 mcg/actuati on inhaler 02-20 00:00: 00 Yes [id number] 2{puff} Inhale 2 Puffs 2 (two) times daily. [facility] triamterene -hydrochlor othiazid 37.5-25 mg tablet 02-20 00:00: 00 Yes [id number] 1{tbl} Take 1 tablet by mouth daily. [facility] chlordiazeP OXIDE 25 mg capsule 02-20 00:00: 00 Yes [id number] 25mg Take 1 capsule by mouth every 6 (six) hours as needed for Anxiety, Agitation, Heart Rate => 100 or Detox. [facility] predniSONE 10 mg tablet 02-20 00:00: 00 Yes [id number] TAKE ONE TABLET BY MOUTH DAILY [facility] albuterol 90 mcg/actuati on inhaler 02-20 00:00: 00 Yes [id number] 2{puff} Inhale 2 Puffs every 4 (four) hours as needed for Wheezing or Shortness of Breath. [facility] albuterol 2.5 mg /3 mL (0.083 %) nebulizer solution 02-20 00:00: 00 Yes [id number] 2.5mg Inhale 3 mL every 4 (four) hours. May also nebulize one extra every 6 hours. [facility] budesonide- formoteroL 160-4.5 mcg/actuati on inhaler 02-20 00:00: 00 Yes [id number] 2{puff} Inhale 2 Puffs 2 (two) times daily. [facility] triamterene -hydrochlor othiazid 37.5-25 mg tablet 02-20 00:00: 00 Yes [id number] 1{tbl} Take 1 tablet by mouth daily. [facility] chlordiazeP OXIDE 25 mg capsule 02-20 00:00: 00 Yes [id number] 25mg Take 1 capsule by mouth every 6 (six) hours as needed for Anxiety, Agitation, Heart Rate => 100 or Detox. [facility] predniSONE 10 mg tablet 02-20 00:00: 00 Yes [id number] TAKE ONE TABLET BY MOUTH DAILY [facility] albuterol 90 mcg/actuati on inhaler 02-20 00:00: 00 Yes [id number] 2{puff} Inhale 2 Puffs every 4 (four) hours as needed for Wheezing or Shortness of Breath. [facility] albuterol 2.5 mg /3 mL (0.083 %) nebulizer solution 02-20 00:00: 00 Yes [id number] 2.5mg Inhale 3 mL every 4 (four) hours. May also nebulize one extra every 6 hours. [facility] budesonide- formoteroL 160-4.5 mcg/actuati on inhaler 02-20 00:00: 00 Yes [id number] 2{puff} Inhale 2 Puffs 2 (two) times daily. [facility] triamterene -hydrochlor othiazid 37.5-25 mg tablet 02-20 00:00: 00 Yes [id number] 1{tbl} Take 1 tablet by mouth daily. [facility] chlordiazeP OXIDE 25 mg capsule 02-20 00:00: 00 Yes [id number] 25mg Take 1 capsule by mouth every 6 (six) hours as needed for Anxiety, Agitation, Heart Rate => 100 or Detox. [facility] predniSONE 10 mg tablet 02-20 00:00: 00 Yes [id number] TAKE ONE TABLET BY MOUTH DAILY [facility] albuterol 90 mcg/actuati on inhaler 02-20 00:00: 00 Yes [id number] 2{puff} Inhale 2 Puffs every 4 (four) hours as needed for Wheezing or Shortness of Breath. [facility] albuterol 2.5 mg /3 mL (0.083 %) nebulizer solution 02-20 00:00: 00 Yes [id number] 2.5mg Inhale 3 mL every 4 (four) hours. May also nebulize one extra every 6 hours. [facility] budesonide- formoteroL 160-4.5 mcg/actuati on inhaler 02-20 00:00: 00 Yes [id number] 2{puff} Inhale 2 Puffs 2 (two) times daily. [facility] triamterene -hydrochlor othiazid 37.5-25 mg tablet 02-20 00:00: 00 Yes [id number] 1{tbl} Take 1 tablet by mouth daily. [facility] chlordiazeP OXIDE 25 mg capsule 02-20 00:00: 00 Yes [id number] 25mg Take 1 capsule by mouth every 6 (six) hours as needed for Anxiety, Agitation, Heart Rate => 100 or Detox. [facility] albuterol 5 mg/mL nebulizer solution 07-16 14:02: 20 Yes 2.5mg Inhale 2.5 mg every 6 (six) hours as needed for Wheezing or Shortness of Breath. [facility] albuterol 5 mg/mL nebulizer solution 07-16 14:02: 20 Yes 2.5mg Inhale 2.5 mg every 6 (six) hours as needed for Wheezing or Shortness of Breath. [facility] albuterol 5 mg/mL nebulizer solution 07-16 14:02: 20 Yes 2.5mg Inhale 2.5 mg every 6 (six) hours as needed for Wheezing or Shortness of Breath. [facility] albuterol 5 mg/mL nebulizer solution 07-16 14:02: 20 Yes 2.5mg Inhale 2.5 mg every 6 (six) hours as needed for Wheezing or Shortness of Breath. [facility] budesonide- formoterol 160-4.5 mcg/actuati on inhaler 07-16 00:00: 00 Yes 2{puff} Inhale 2 Puffs 2 (two) times daily. [facility] albuterol 2.5 mg /3 mL (0.083 %) nebulizer solution 07-16 00:00: 00 Yes 2.5mg Inhale 3 mL every 4 (four) hours as needed for Wheezing or Shortness of Breath. [facility] budesonide- formoterol 160-4.5 mcg/actuati on inhaler 07-16 00:00: 00 Yes 2{puff} Inhale 2 Puffs 2 (two) times daily. [facility] albuterol 2.5 mg /3 mL (0.083 %) nebulizer solution 07-16 00:00: 00 Yes 2.5mg Inhale 3 mL every 4 (four) hours as needed for Wheezing or Shortness of Breath. [facility] budesonide- formoterol 160-4.5 mcg/actuati on inhaler 07-16 00:00: 00 Yes 2{puff} Inhale 2 Puffs 2 (two) times daily. [facility] albuterol 2.5 mg /3 mL (0.083 %) nebulizer solution 07-16 00:00: 00 Yes 2.5mg Inhale 3 mL every 4 (four) hours as needed for Wheezing or Shortness of Breath. [facility] budesonide- formoterol 160-4.5 mcg/actuati on inhaler 07-16 00:00: 00 Yes 2{puff} Inhale 2 Puffs 2 (two) times daily. [facility] albuterol 2.5 mg /3 mL (0.083 %) nebulizer solution 07-16 00:00: 00 Yes 2.5mg Inhale 3 mL every 4 (four) hours as needed for Wheezing or Shortness of Breath. [facility] triamterene -hydrochlor othiazide 37.5-25 mg per capsule 03-26 16:32: 14 Yes 1{capsu le} Take 1 capsule by mouth every morning. [facility] amLODIPine 10 mg tablet 03-26 16:32: 14 Yes 10mg Take 10 mg by mouth at bedtime. [facility] gabapentin 100 mg capsule 03-26 16:32: 14 Yes 100mg Take 100 mg by mouth 2 (two) times daily as needed (MSK pain). [facility] foLIC acid 1 mg tablet 03-26 16:32: 14 Yes 1mg Take 1 mg by mouth daily. [facility] triamterene -hydrochlor othiazide 37.5-25 mg per capsule 03-26 16:32: 14 Yes 1{capsu le} Take 1 capsule by mouth every morning. [facility] amLODIPine 10 mg tablet 03-26 16:32: 14 Yes 10mg Take 10 mg by mouth at bedtime. [facility] gabapentin 100 mg capsule 03-26 16:32: 14 Yes 100mg Take 100 mg by mouth 2 (two) times daily as needed (MSK pain). [facility] foLIC acid 1 mg tablet 03-26 16:32: 14 Yes 1mg Take 1 mg by mouth daily. [facility] triamterene -hydrochlor othiazide 37.5-25 mg per capsule 03-26 16:32: 14 Yes 1{capsu le} Take 1 capsule by mouth every morning. [facility] amLODIPine 10 mg tablet 03-26 16:32: 14 Yes 10mg Take 10 mg by mouth at bedtime. [facility] gabapentin 100 mg capsule 03-26 16:32: 14 Yes 100mg Take 100 mg by mouth 2 (two) times daily as needed (MSK pain). [facility] foLIC acid 1 mg tablet 03-26 16:32: 14 Yes 1mg Take 1 mg by mouth daily. [facility] triamterene -hydrochlor othiazide 37.5-25 mg per capsule 03-26 16:32: 14 Yes 1{capsu le} Take 1 capsule by mouth every morning. [facility] amLODIPine 10 mg tablet 03-26 16:32: 14 Yes 10mg Take 10 mg by mouth at bedtime. [facility] gabapentin 100 mg capsule 03-26 16:32: 14 Yes 100mg Take 100 mg by mouth 2 (two) times daily as needed (MSK pain). [facility] foLIC acid 1 mg tablet 03-26 16:32: 14 Yes 1mg Take 1 mg by mouth daily. [facility] budesonide- formoterol 160-4.5 mcg/actuati on inhaler 03-26 00:00: 00 Yes 2{puff} Inhale 2 Puffs 2 (two) times daily. [facility] budesonide- formoterol 160-4.5 mcg/actuati on inhaler 03-26 00:00: 00 Yes 2{puff} Inhale 2 Puffs 2 (two) times daily. [facility] budesonide- formoterol 160-4.5 mcg/actuati on inhaler 03-26 00:00: 00 Yes 2{puff} Inhale 2 Puffs 2 (two) times daily. [facility] budesonide- formoterol 160-4.5 mcg/actuati on inhaler 03-26 00:00: 00 Yes 2{puff} Inhale 2 Puffs 2 (two) times daily. [facility] Immunizations Ordered Immunization Name Filled Immunization Name Date Status Comments Source SARS-COV-2 COVID-19 PFIZER VACCINE 2021-02-03 00:00:00 Completed [facility] SARS-COV-2 COVID-19 PFIZER VACCINE 2021-02-03 00:00:00 Completed [facility] SARS-COV-2 COVID-19 PFIZER VACCINE 2021-02-03 00:00:00 Completed [facility] SARS-COV-2 COVID-19 PFIZER VACCINE 2021-01-13 00:00:00 Completed [facility] SARS-COV-2 COVID-19 PFIZER VACCINE 2021-01-13 00:00:00 Completed [facility] SARS-COV-2 COVID-19 PFIZER VACCINE 2021-01-13 00:00:00 Completed [facility] Pneumococcal Polysaccharide, PPSV23 (PNEUMOVAX) 2018-03-26 00:00:00 Completed [facility] Influenza Virus Vaccine Quad IM 3+ YRS 2018-03-26 00:00:00 Completed [facility] Pneumococcal Polysaccharide, PPSV23 (PNEUMOVAX) 2018-03-26 00:00:00 Completed [facility] Influenza Virus Vaccine Quad IM 3+ YRS 2018-03-26 00:00:00 Completed [facility] Pneumococcal Polysaccharide, PPSV23 (PNEUMOVAX) 2018-03-26 00:00:00 Completed [facility] Influenza Virus Vaccine Quad IM 3+ YRS 2018-03-26 00:00:00 Completed [facility] Pneumococcal Polysaccharide, PPSV23 (PNEUMOVAX) Unknown Completed [facility] Influenza Virus Vaccine Quad IM 3+ YRS Unknown Completed [facility] SARS-COV-2 COVID-19 PFIZER VACCINE Unknown Completed [facility] SARS-COV-2 COVID-19 PFIZER VACCINE Unknown Completed [facility] Vital Signs Vital Name Observation Time Observation Value Comments S ource Systolic blood pressure 2023-10-27 06:54:00 133 mm[Hg] [facility] Diastolic blood pressure 2023-10-27 06:54:00 94 mm[Hg] [facility] Heart rate 2023-10-27 06:54:00 95 /min [facility] Body temperature 2023-10-27 06:54:00 36.44 Debbie [facility] Respiratory rate 2023-10-27 06:54:00 22 /min [facility] Body height 2023-10-27 06:54:00 162.6 cm [facility] Body weight 2023-10-27 06:54:00 78.472 kg [facility] BMI 2023-10-27 06:54:00 29.70 kg/m2 [facility] Oxygen saturation in Arterial blood by Pulse oximetry 2023-10-27 06:54:00 94 /min [facility] Systolic blood pressure 2022-10-14 19:43:00 111 mm[Hg] [facility] Diastolic blood pressure 2022-10-14 19:43:00 74 mm[Hg] [facility] Heart rate 2022-10-14 19:43:00 98 /min [facility] Body temperature 2022-10-14 19:43:00 36.39 Debbie [facility] Respiratory rate 2022-10-14 19:43:00 22 /min [facility] Oxygen saturation in Arterial blood by Pulse oximetry 2022-10-14 19:43:00 94 /min [facility] Body height 2022-10-14 16:13:00 162.6 cm [facility] Body weight 2022-10-14 16:13:00 81.647 kg [facility] BMI 2022-10-14 16:13:00 30.90 kg/m2 [facility] Systolic blood pressure 2022-03-12 10:13:00 119 mm[Hg] [facility] Diastolic blood pressure 2022-03-12 10:13:00 75 mm[Hg] [facility] Heart rate 2022-03-12 10:13:00 105 /min [facility] Body temperature 2022-03-12 10:13:00 37.28 Debbie [facility] Respiratory rate 2022-03-12 10:13:00 19 /min [facility] Body height 2022-03-12 10:13:00 162.6 cm [facility] Body weight 2022-03-12 10:13:00 99.791 kg [facility] BMI 2022-03-12 10:13:00 37.76 kg/m2 [facility] Oxygen saturation in Arterial blood by Pulse oximetry 2022-03-12 10:13:00 96 /min [facility] Systolic blood pressure 2022-02-20 11:57:00 155 mm[Hg] [facility] Diastolic blood pressure 2022-02-20 11:57:00 88 mm[Hg] [facility] Heart rate 2022-02-20 11:57:00 105 /min [facility] Respiratory rate 2022-02-20 11:57:00 18 /min [facility] Oxygen saturation in Arterial blood by Pulse oximetry 2022-02-20 11:57:00 100 /min [facility] Body temperature 2022-02-20 09:25:00 37 Debbie [facility] Body height 2022-02-20 09:25:00 162.6 cm [facility] Body weight 2022-02-20 09:25:00 96.163 kg [facility] BMI 2022-02-20 09:25:00 36.39 kg/m2 [facility] Procedures Procedure Date / Time Performed Performing Clinician Source COVID-19 (ID NOW RAPID TESTING) 2023-10-27 07:09:00 Jac Navarro [facility] NOTICE OF PRIVACY PRACTICES 2023-10-27 06:49:48 Doctor Unassigned, [facility] CONSENT/REFUSAL FOR DIAGNOSIS AND TREATMENT 2023-10-27 06:47:40 Doctor Unassigned, [facility] CT ABDOMEN PELVIS W CONTRAST 2022-10-14 17:33:00 Singer [facility] XR CHEST 1 VW 2022-10-14 17:10:37 Singer [facility] TROPONIN I 2022-10-14 16:37:00 [facility] COMP. METABOLIC PANEL ([id number]) 2022-10-14 16:37:00 Singer [facility] CBC WITH DIFF 2022-10-14 16:37:00 Singer [facility] PROTHROMBIN TIME / INR 2022-10-14 16:37:00 Wali Maciel [facility] URINALYSIS 2022-10-14 16:37:00 [facility] N-TERMINAL PRO-BNP 2022-10-14 16:37:00 Singer [facility] CONSENT/REFUSAL FOR DIAGNOSIS AND TREATMENT 2022-10-14 15:56:36 Doctor Unassigned, [facility] CONSENT/REFUSAL FOR DIAGNOSIS AND TREATMENT 2022-03-12 10:03:12 Doctor Unassigned, [facility] XR CHEST 1 VW 2022-02-20 09:59:00 Christy Shaw [facility] LIPASE 2022-02-20 09:30:00 Christy Shaw [facility] TROPONIN I 2022-02-20 09:30:00 Christy Shaw [facility] COMP. METABOLIC PANEL ([id number]) 2022-02-20 09:30:00 Christy Shaw [facility] CBC WITH DIFF 2022-02-20 09:30:00 Christy Shaw [facility] N-TERMINAL PRO-BNP 2022-02-20 09:30:00 Christy Shaw [facility] NOTICE OF PRIVACY PRACTICES 2022-02-20 09:15:02 Doctor Unassigned, [facility] CONSENT/REFUSAL FOR DIAGNOSIS AND TREATMENT 2022-02-20 09:14:47 Doctor Unassigned, [facility] Encounters Start Date/Time End Date/Time Encounter Type Admission Type Attending Clinicians Care Facility Care Department Encounter ID Source 2023-10-27 00:49:00 2023-10-27 01:41:00 Emergency X JAC NAVARRO [facility] ERT [id number] [facility] 2023-10-27 00:49:00 2023-10-27 01:41:00 Emergency Jac Navarro [facility] [id number] [facility] 2023-07-15 00:00:00 2023-07-15 00:00:00 Outpatient DARIEN LOBO [id number] Maria Elena [facility] 2023-06-16 11:30:00 2023-06-16 11:30:00 Outpatient DARIEN LOBO [id number] Maria Elena [facility] 2023-05-18 00:00:00 2023-05-18 00:00:00 Outpatient MARIA ELENA CHAN [id number] Maria Elena [facility] 2022-10-14 10:07:00 2022-10-14 14:39:00 Emergency MELINDA ROUSE [facility] ERT [id number] [facility] 2022-10-14 10:07:00 2022-10-14 14:39:00 Emergency Melinda Maciel [facility] [id number] [facility] 2022-03-12 05:15:00 2022-03-12 06:41:00 Emergency X CHRISTY SHAW [facility] ERT [id number] [facility] 2022-03-12 05:15:00 2022-03-12 06:41:00 Emergency Christy Shaw [facility] [id number] [facility] 2022-02-20 04:17:00 2022-02-20 07:16:00 Emergency X CHRISTY SHAW [facility] ERT [id number] [facility] 2022-02-20 04:17:00 2022-02-20 07:16:00 Emergency Christy Shaw [facility] [id number] [facility] 2021-02-03 11:10:00 2021-02-03 11:10:00 Outpatient R DENISE SUNG [facility] [id number] [facility] 2021-01-13 11:20:00 2021-01-13 11:20:00 Outpatient [facility] [id number] [facility] 2020-11-10 08:20:00 2020-11-10 08:20:00 Outpatient KARLEY ESTRADA [facility] [id number] [facility] Results Test Description Test Time Test Comments Results Result Co [facility]ments Source [id number] 10:13:01* Test Item Value Reference Range Interpretation Comme nts NT-proBNP (test code = 6584520391) 52 pg/mL See_Comment [Automated message] The system which generated this result transmitted reference range: <=125. The reference range was not used to interpret this result as normal/abnormal. LOUISE (test code = LOUISE) Biotin has been reported to cause a negative bias, interpret results relative to patient's use of biotin. Lab Interpretation (test code = 81525-6) Normal [facility]. METABOLIC PANEL (50000)2022-02-20 10:04:02* Test Item Value Reference Range Interpretation Comme nts NA (test code = 8432811970) 137 mmol/L 135-145 K (test code = 2818227851) 3.6 mmol/L 3.5-5.0 CL (test code = 9306707256) 99 mmol/L 98-108 CO2 TOTAL (test code = 3501129723) 25 mmol/L 23-31 AGAP (test code = 0641850846) 2-16 BUN (test code = 3328291032) 6 mg/dL 7-23 L GLUCOSE (test code = 2975214011) 88 mg/dL 70-110 CREATININE (test code = 1345988365) 0.55 mg/dL 0.60-1.25 L TOTAL BILI (test code = 7110506135) 0.8 mg/dL 0.1-1.1 CALCIUM (test code = 6880962064) 8.9 mg/dL 8.6-10.6 T PROTEIN (test code = 1148572943) 7.5 g/dL 6.3-8.2 ALBUMIN (test code = 1276767470) 4.8 g/dL 3.5-5.0 ALK PHOS (test code = 6618553616) 113 U/L 34-122 ALTv (test code = 1742-6) 84 U/L 5-50 H AST(SGOT) (test code = 1889092909) 107 U/L 13-40 H eGFR (test code = 7746718667) mL/min/1.73m2 LOUISE (test code = LOUISE) Association [...] imaging tests). Lab Interpretation (test code = 92299-6) [id number] 10:03:21* Test Item Value Reference Range Interpretation Comme nts LIPASE (test code = 4067471294) 193 U/L 0-220 Lab Interpretation (test cod e = 39142-7) [facility] [id number] 09:39:17* Test Item Value Reference Range Interpretation Comme nts WBC (test code = 6690-2) See_Comment [Automated memloom] The system which generated this result transmitted reference range: 4.20 - 10.70 10*3/?L. The reference range was not used to interpret this result as normal/abnormal. RBC (test code = 789-8) See_Comment [Automated memloom] The system which generated this result transmitted [...] g/dL 31.2-35.0 H RDW-SD (test code = 73978-0) 44.4 fL 38.5-51.6 RDW-CV (test code = 788-0) 11.9 % 12.1-15.4 L PLT (test code = 777-3) See_Comment [Automated messa ge] The system which generated this result transmitted reference range: 150 - 328 10*3/?L. The reference range was not used to interpret this result as normal/abnormal. MPV (test code = 67811-4) 9.2 fL 9.8-13.0 L NRBC/100 WBC (test code = 4814400266) See_Comment [Automated Alere ssage] The system which generated this result transmitted reference range: 0.0 - 10.0 /100 WBCs. The reference range was not used to interpret this result as normal/abnormal. NRBC x10^3 (test code = 0833476232) <0.01 See_Comment [Automated [employer]] The system which generated this result transmitted reference range: 10*3/?L. The reference range was not used to interpret this result as normal/abnormal. GRAN MAT (NEUT) % (test code = 770-8) 69.9 % IMM GRAN % (test code = 4293315081) 1.50 % LYMPH % (test code = 736-9) 18.9 % MONO % (test code = 5905-5) 7.0 % EOS % (test code = 713-8) 1.9 % BASO % (test code = 706-2) 0.8 % GRAN MAT x10^3(ANC) (test code = 3129865403) 7.15 10*3/uL 1.99-6.95 H IMM GRAN x10^3 (test code = 4748103750) 0.15 10*3/uL 0.00-0.06 H LYMPH x10^3 (test code = 731-0) 1.93 10*3/uL 1.09-3.23 MONO x10^3 (test code = 742-7) 0.72 10*3/uL 0.36-1.02 EOS x10^3 (test code = 711-2) 0.19 10*3/uL 0.06-0.53 BASO x10^3 (test code = 704-7) 0.08 10*3/uL 0.01-0.09 Lab Interpretation (test code = 13734-6) Abnormal [facility]"
[2023-11-02] MEDS ORDERED: LORazepam 2 MG/ML VIAL ONE (22:50)
[2023-11-02] MEDS ORDERED: IPRATROPIUM BROM 0.5MG/2.5ML ONE (23:20)
[2023-11-02] MEDS ORDERED: ALBUTEROL 2.5 MG/3 ML NEB SOL ONE (23:20)
[2023-11-02] MEDS ORDERED: CODEINE 30MG/APAP 300MG TAB ONE (23:21)
[2023-11-02] MEDS ORDERED: ONDANSETRON 4 MG (ODT) TAB ONE (23:21)
[2023-11-02] MEDS ORDERED: METHYLPREDNISOLONE 125 MG INJ ONE (23:21)
[2023-11-02 23:22] LABS: Arterial Blood Carboxyhemoglob 9.1 % (0-1.5); Blood Gas Oxyhemoglobin 66.9 % (94-97); Blood O2 Saturation 75.2 % (92-98.5)
[2023-11-03 00:18] LABS: Protime INR 0.93
[2023-11-03 00:20] LABS: Absolute Lymphocytes (CBC) 3.1 K/uL (0.7-4.9); Lymphocytes % 18.9 % (15.3-44.8); MCV 102.4 fL (80-100); MPV 6.6 fL (7.6-11.3); Platelets 224 thou/uL (152-406); RBC Red Blood Cell Count 3.71 M/uL (4.33-5.43)
--- NOTE | 2023-11-03 00:22 | ER ---
Nurse's Notes [facility] Name: Randy Briones Age: 53 yrs Sex: Male : 1970 Arrival Date: 11/02/2023 Time: 22:44 Bed 7 Private MD: Diagnosis: COPD/ Chronic obstructive pulmonary disease with (acute) exacerbation;Alcohol abuse with intoxication, uncomplicated Presentation: 11/02 22:46 Chief complaint: EMS states: toned out for sob. Arrived to find patient sitting outside [facility] in tripod position, tachypneic, diaphoretic. Per pt o2 sat was 90% and wouldn't come up when he put on his home o2. Reports he was on a 2 week drinking adkins but his last drink was this morning- experiencing some tremors at this time. Reports being sick with cough, congestion, fever, chills and body aches for the past 4 or 5 days. Coronavirus screen: Vaccine status: Patient reports receiving the 2nd dose of the covid vaccine. Ebola Screen: No symptoms or risks identified at this time. Initial Sepsis Screen: Does the patient meet any 2 criteria? HR > 90 bpm. Does the patient have a suspected source of infection? No. Patient's initial sepsis screen is negative. Risk Assessment: Do you want to hurt yourself or someone else? Patient reports no desire to harm self or others. Onset of symptoms was November 02, 2023. 22:46 Method Of Arrival: EMS: [place] [id number] 22:46 Acuity: CANDACE 3 [facility] Triage Assessment: 22:49 General: Appears distressed, uncomfortable, Behavior is cooperative, appropriate for [facility] age, anxious, Reports chills for >3 days, fever for feeling ill for c/o sob, cough, congestion, n/v/d, body aches and fever for the past 5 days. Reports being on a 2 week drinking adkins- last drink this morning. States his o2 sat was 90% on room air and wouldn't improve when he put on his oxygen. Pain: Denies pain. Neuro: Level of Consciousness is awake, alert, obeys commands, Oriented to person, place, time, situation, Appropriate for age. Cardiovascular: Capillary refill < 3 seconds Patient's skin is warm and dry. Respiratory: Reports shortness of breath cough that is labored breathing pain with cough Airway is patent Respiratory effort is labored, using tripod position, Respiratory pattern is regular, tachypnea Onset: The symptoms/episode began/occurred today, the patient has moderate shortness of breath. Historical: - Allergies: 22:49 Lisinopril; me1 - PMHx: 22:49 Alcoholism; COPD; home 02 3LNC PRN; Hypertension; me1 - PSHx: 22:49 Amputation of left index finger; me1 - Immunization history:: Adult Immunizations unknown. - Social history:: Smoking status: Patient reports the use of cigarette tobacco products, smokes two packs cigarettes per day. - Family history:: not pertinent. Screenin:54 [facility] ED Fall Risk Assessment (Adult) History of falling in the last 3 months, co1 including since admission No falls in past 3 months (0 pts) Confusion or Disorientation No (0 pts) Intoxicated or Sedated No (0 pts) Impaired Gait Yes (1 pt) Mobility Assist Device Used Yes (1 pt) Altered Elimination No (0 pt) Score/Fall Risk Level 0 - 2 = Low Risk Maintained a safe environment, Provided non-skid footwear, Hourly rounding (assess needs \T\ fall precautionary measures) done. Abuse screen: Denies threats or abuse. Nutritional screening: No deficits noted. Tuberculosis screening: No symptoms or risk factors identified. Assessment: 22:54 General: see triage assessment. . me1 11/03 00:00 Reassessment: Patient appears in no apparent distress at this time. No changes from [facility] previously documented assessment. Patient and/or family updated on plan of care and expected duration. Pain level reassessed. Patient is alert, oriented x 3, equal unlabored respirations, skin warm/dry/pink. 01:00 Reassessment: Patient appears in no apparent distress at this time. No changes from jw7 previously documented assessment. Patient and/or family updated on plan of care and expected duration. Pain level reassessed. Patient is alert, oriented x 3, equal unlabored respirations, skin warm/dry/pink. 02:00 Reassessment: Patient appears in no apparent distress at this time. No changes from 7 previously documented assessment. Patient and/or family updated on plan of care and expected duration. Pain level reassessed. Patient is alert, oriented x 3, equal unlabored respirations, skin warm/dry/pink. 03:00 Reassessment: Patient appears in no apparent distress at this time. No changes from jw7 previously documented assessment. Patient and/or family updated on plan of care and expected duration. Pain level reassessed. Patient is alert, oriented x 3, equal unlabored respirations, skin warm/dry/pink. 04:15 Reassessment: Patient appears in no apparent distress at this time. No changes from jw7 previously documented assessment. Patient and/or family updated on plan of care and expected duration. Pain level reassessed. Patient is alert, oriented x 3, equal unlabored respirations, skin warm/dry/pink. 10:00 Reassessment: PT ELOPED WITHOUT SPEAKING TO STAFF. WITNESSED TO PULL OWN PIV AND LEFT ll1 WITH STEADY GAIT, REFUSED TO SPEAK WITH STAFF WHEN REQUESTED TO RETURN TO ROOM OR ASKED WHAT HIS PLAN WAS. H/O LEAVING AMA ON PREVIOUS VISITS. LAST SEEN IN STABLE CONDITION. Vital Signs: 11/02 22:46 BP 141 / 90; Pulse 93; Resp 18; Temp 98.2(O); Pulse Ox 98% on R/A; Weight 79.38 kg; co1 Height 5 ft. 4 in. ; 11/03 00:00 BP 142 / 87; Pulse 89; Resp 23 S; Pulse Ox 90% on 2 lpm NC; jw7 01:00 BP 159 / 96; Pulse 82; Resp 24 S; Pulse Ox 91% on 2 lpm NC; jw7 02:00 BP 135 / 87; Pulse 78; Resp 22 S; Pulse Ox 93% on 2 lpm NC; jw7 02:55 BP 129 / 73; Pulse 75; Resp 21; Pulse Ox 96% on 8 lpm Nebulizer Mask; jw7 04:00 BP 125 / 77; Pulse 98; Resp 23 S; Pulse Ox 95% on 2 lpm NC; jw7 05:00 BP 132 / 74; Pulse 100; Resp 22 S; Pulse Ox 90% on 4 lpm NC; jw7 06:20 BP 136 / 77; Pulse 91; Resp 23 S; Pulse Ox 91% on 4 lpm NC; jw7 11/02 22:46 Body Mass Index 30.04 (79.38 kg, 162.56 cm) [facility] ED Course: 11/02 22:44 Patient arrived in ED. jj6 22:46 Radha Bliss, RN is Primary Nurse. me1 22:47 Jose Crews MD is Attending Physician. sp4 22:49 Triage completed. me1 22:49 Arm band placed on Patient placed in an exam room. me1 22:54 Allergy band placed. Bed in low position. Call light in reach. Side rails up X2. me1 Provided Education on: POC, Verbalized understanding. . 22:54 No provider procedures requiring assistance completed. me1 23:06 XRAY Chest (1 view) In Process Unspecified. EDMS 23:17 Inserted saline lock: 22 gauge in right forearm, using aseptic technique. me1 23:17 Basic Metabolic Panel Sent. me1 23:17 CBC with Diff Sent. me1 23:18 LFT's Sent. me1 23:18 Magnesium Sent. me1 23:18 NT PRO-BNP Sent. me1 23:18 PT-INR Sent. me1 23:18 Troponin HS Sent. co1 11/03 02:15 Inserted saline lock: 20 gauge in right hand, using aseptic technique. Blood collected. oe 02:21 Blood Culture Adult (2) Sent. jw7 02:21 Lactate w/ 2H reflex if indic. Sent. jw7 03:11 SARS RAPID Sent. jj7 03:11 Influenza Screen (a \T\ B) Sent. jj7 03:11 Alcohol Level Sent. jj7 04:10 Abhi Willis MD is Hospitalizing Provider. sp4 07:36 Primary Nurse role handed off by Radha Bliss, RN ll1 07:36 Estella Cano, BRIGETTE is Primary Nurse. ll1 10:02 IV discontinued, DC BY PT. ll1 Administered Medications: 11/02 22:53 Drug: LORazepam IM 2 mg IM once Route: IM; Site: right deltoid; j 11/03 06:37 Follow up: Response: No adverse reaction [facility] 11/02 23:29 Drug: MethylPrednisoLONE IVP 125 mg IVP once Route: IVP; Site: right forearm; [facility] 11/03 06:37 Follow up: Response: No adverse reaction [facility] 11/02 23:29 Drug: DuoNeb Nebulize (3:1) (2.5 mg - 0.5 mg) 3 ml Nebulizer once Route: Nebulizer; [facility] 11/03 06:36 Follow up: Response: No adverse reaction jw7 11/02 23:29 Drug: Acetaminophen-Codeine PO (300 mg-30 mg) 2 tabs PO once; RASS on ADMIN: Combtv4, me1 Very Agttd3, Agttd2, Rstlss1, AlertClm0, Drwsy-1, Lt Sdtn-2, Mod Sdtn-3, Dp Sdtn-4, UnArsble-5 Route: PO; 11/03 06:36 Follow up: Response: No adverse reaction jw7 11/02 23:29 Drug: Ondansetron PO 4 mg PO once Route: PO; me1 11/03 06:36 Follow up: Response: No adverse reaction jw7 02:00 Drug: morphine IVP or IV 4 mg IVP once over 4 mins Route: IVP; Infused Over: 4 mins; jw7 Site: right hand; 06:35 Follow up: Response: No adverse reaction; Marked relief of symptoms jw7 02:00 Drug: Ondansetron IVP 4 mg IVP once; over 2 minutes Route: IVP; Site: right hand; jw7 06:34 Follow up: Response: No adverse reaction; Marked relief of symptoms jw7 02:10 Drug: Rocephin - Rocephin (cefTRIAXone) IVPB 1 grams IVPB once over 30 mins; (mix in 50 jw7 mL NS) Route: IVPB; Infused Over: 30 mins; Site: right hand; 06:34 Follow up: Response: No adverse reaction; IV Status: Completed infusion; IV Intake: [id number] 02:48 Drug: DuoNeb Nebulize (3:1) (2.5 mg - 0.5 mg) 3 ml Nebulizer once Route: Nebulizer; jw7 06:34 Follow up: Response: No adverse reaction jw7 02:48 Drug: Zithromax IVPB 500 mg IVPB once over 1 hrs; mix in 250 mL NS Route: IVPB; Infused jw7 Over: 1 hrs; Site: right hand; 06:34 Follow up: Response: No adverse reaction; IV Status: Completed infusion; IV Intake: jw7 250ml 03:11 Drug: diphenhydrAMINE IVP 25 mg IVP once Route: IVP; Site: right hand; jj7 06:34 Follow up: Response: No adverse reaction jw7 Medication: 11/02 22:54 VIS not applicable for this client. me1 Intake: 11/03 06:34 IV: 250ml; Total: 250ml. jw7 06:34 IV: 50ml; Total: 300ml. jw7 Outcome: 00:22 Discharge ordered by . sp4 04:11 Decision to Hospitalize by Provider. sp4 10:03 Admitted to ER Hold. Please see [facility] for further documentation. ll1 10:03 Condition: stable 10:03 Instructed on the need for admit, 10:10 Patient left the ED. iw Signatures: Dispatcher [employer] EDRebeca Castaneda, RN RN iw Kentrell Christian Lynsay RN RN ll1 Beatriz Mars6 Kaila Mckeon RN RN jw7 Omega Luke RN RN jj7 Jose Crews MD MD sp4 Radha Bliss RN RN me1
--- NOTE | 2023-11-03 00:23 | EDPHYS ---
Physician Documentation [facility] Name: Randy Briones Age: 53 yrs Sex: Male : 1970 Arrival Date: 11/02/2023 Time: 22:44 Bed 7 Private MD: ED Physician Jose Crews HPI: 11/02 22:47 This 53 yrs old Male presents to ER via Unassigned with complaints of sp4 Shortness Of Breath. 22:47 PMH - Allergies: Lisinopril; PMHx: Alcoholism; COPD; home 02 3LNC PRN; Hypertension sp4 PSHx: Amputation of left index finger;. 22:49 83-year-old male well-known to me from prior visits with past medical history of COPD sp4 and alcohol abuse presents with acute dyspnea associated with wheezing. Patient is oxygen dependent at home 3 L [id number]. Patient is also known to have had alcohol binge in the last 2 weeks with last drink this morning . Patient was here for complaint of shortness of breath. . 22:50 Yesterday patient was assessed and left AGAINST MEDICAL ADVICE after 2 PM , patient was sp4 managed by Purvi VARGAS . Historical: - Allergies: 22:49 Lisinopril; me1 - PMHx: 22:49 Alcoholism; COPD; home 02 3LNC PRN; Hypertension; me1 - PSHx: 22:49 Amputation of left index finger; me1 - Immunization history:: Adult Immunizations unknown. - Social history:: Smoking status: Patient reports the use of cigarette tobacco products, smokes two packs cigarettes per day. - Family history:: not pertinent. ROS: 22:50 Constitutional: Negative for fever, chills, and weight loss, positive shortness of sp4 breath, positive tremors, positive alcohol withdrawal, positive wheezing, positive generalized weakness 22:50 All other systems are negative, Exam: 22:50 Constitutional: This is a well developed, well nourished patient who is awake, alert, sp4 moderate respiratory distress, albuterol nebulized ongoing on arrival, positive dyspnea, positive tachypnea, positive bilateral wheezing, positive physical deconditioning, positive facial plethora, positive for resting tremor Head/Face: Normocephalic, atraumatic. Positive facial plethora Eyes: Pupils equal round and reactive to light, extra-ocular motions intact. Lids and lashes normal. Conjunctiva and sclera are not injected. Cornea within normal limits. Periorbital areas with no swelling, redness, or edema. ENT: Nares patent. No nasal discharge, no septal abnormalities noted. Tympanic membranes are normal and external auditory canals are clear. Oropharynx with no redness, swelling, or masses, exudates, or evidence of obstruction, uvula midline. Mucous membranes moist. Neck: Trachea midline, no thyromegaly or masses palpated, and no cervical lymphadenopathy. Supple, full range of motion without nuchal rigidity, or vertebral point tenderness. Chest/axilla: Normal chest wall appearance and motion. Nontender with no deformity. No lesions are appreciated. Cardiovascular: Regular rate and rhythm with a normal S1 and S2. No gallops, murmurs, or rubs. Normal PMI, no JVD. No pulse deficits. Respiratory: Lungs have equal breath sounds bilaterally, positive dyspnea, positive tachypnea, positive bilateral extensive expiratory wheezes in all lung lozano. Positive retractions Abdomen/GI: Soft, non-tender, with normal bowel sounds. No distension or tympany. No guarding or rebound. No evidence of tenderness throughout. Back: No spinal tenderness. No costovertebral tenderness. Skin: Warm, dry with normal turgor. Normal color with no rashes, no lesions, and no evidence of cellulitis. Positive facial plethora MS/ Extremity: Pulses equal, no cyanosis. Neurovascular intact. Full, normal range of motion. Neuro: Awake and alert, GCS 15, oriented to person, place, time, and situation. Cranial nerves II-XII grossly intact. Motor strength 5/5 in all extremities. Sensory grossly intact. Psych: Awake, alert, with orientation to person, place and time. Behavior, mood, and affect are within normal limits Vital Signs: 22:46 BP 141 / 90; Pulse 93; Resp 18; Temp 98.2(O); Pulse Ox 98% on R/A; Weight 79.38 kg; me1 Height 5 ft. 4 in. ; 11/03 00:00 BP 142 / 87; Pulse 89; Resp 23 S; Pulse Ox 90% on 2 lpm NC; jw7 01:00 BP 159 / 96; Pulse 82; Resp 24 S; Pulse Ox 91% on 2 lpm NC; jw7 02:00 BP 135 / 87; Pulse 78; Resp 22 S; Pulse Ox 93% on 2 lpm NC; jw7 02:55 BP 129 / 73; Pulse 75; Resp 21; Pulse Ox 96% on 8 lpm Nebulizer Mask; jw7 04:00 BP 125 / 77; Pulse 98; Resp 23 S; Pulse Ox 95% on 2 lpm NC; jw7 05:00 BP 132 / 74; Pulse 100; Resp 22 S; Pulse Ox 90% on 4 lpm NC; jw7 06:20 BP 136 / 77; Pulse 91; Resp 23 S; Pulse Ox 91% on 4 lpm NC; jw7 11/02 22:46 Body Mass Index 30.04 (79.38 kg, 162.56 cm) me1 MDM: 11/02 22:55 Patient medically screened. sp4 11/03 00:18 Differential diagnosis: Anxiety Reaction Bronchitis CHF exacerbation, Chronic sp4 Obstructive Pulmonary Disease pneumonia, Psychogenic. Data reviewed: vital signs, nurses notes, EMS record, old medical records, lab test result(s). Consideration of Admission/Observation Escalation of care including admission/observation considered. ED course: At this time wishes to leave AMA after he felt improved after some breathing treatments and intramuscular Ativan. Patient reports that he wishes to go home and also wishes to have a prescription for nebulizer to disperse his albuterol at home. Patient took his own IV out. Patient will be given informed discharge at this time. Although risks of leaving a high at this time patient is hemodynamically stable and he is living on his own recognizance. Will prescribe albuterol. Discussed that he is status informed discharge and with advised to return to the emergency room for any other emergent medical concerns. . 02:54 Antibiotic administration: Rocephin IV, Zithromax IV . ED course: Patient is awaiting sp4 for influenza and COVID. 04:10 ED course: admitted for management of COPD . sp4 11/02 22:48 Order name: Basic Metabolic Panel; Complete Time: 01: sp4 11/02 22:48 Order name: CBC with Diff; Complete Time: 01:30 sp4 11/02 22:48 Order name: LFT's; Complete Time: 01:30 sp4 11/02 22:48 Order name: Magnesium; Complete Time: 01: sp4 11/02 22:48 Order name: NT PRO-BNP; Complete Time: 01:30 4 11/02 22:48 Order name: PT-INR; Complete Time: 01:30 4 11/02 22:48 Order name: Troponin HS; Complete Time: 01:30 11/02 22:49 Order name: ABG; Complete Time: 00:18 11/03 01:30 Order name: Blood Culture Adult (2) [facility] 11/03 01:42 Order name: Lactate w/ 2H reflex if indic.; Complete Time: 02:53 11/03 02:46 Order name: Alcohol Level; Complete Time: 04:09 11/03 02:53 Order name: Influenza Screen (a \T\ B); Complete Time: 04:09 11/03 02:54 Order name: SARS RAPID; Complete Time: 04:09 11/03 04:34 Order name: NT PRO-BNP EDMS 11/03 04:34 Order name: Basic Metabolic Panel EDMS 11/03 04:34 Order name: Basic Metabolic Panel EDMS 11/03 04:34 Order name: CBC with Automated Diff EDMS 11/03 04:34 Order name: CBC with Automated Diff EDMS 11/02 22:48 Order name: XRAY Chest (1 view) [facility] 11/02 22:48 Order name: EKG; Complete Time: 22:49 11/02 22:48 Order name: IV Saline Lock; Complete Time: 23:17 [facility] 11/02 22:48 Order name: Labs collected and sent; Complete Time: 23:17 11/02 22:48 Order name: O2 Per Protocol; Complete Time: 22:59 11/02 22:48 Order name: O2 Sat Monitoring; Complete Time: 22:59 11/03 01:31 Order name: Saline Lock; Complete Time: 02:21 sp4 Administered Medications: 11/02 22:53 Drug: LORazepam IM 2 mg IM once Route: IM; Site: right deltoid; jj7 11/03 06:37 Follow up: Response: No adverse reaction 11/02 23:29 Drug: MethylPrednisoLONE IVP 125 mg IVP once Route: IVP; Site: right forearm; me1 11/03 06:37 Follow up: Response: No adverse reaction 11/02 23:29 Drug: DuoNeb Nebulize (3:1) (2.5 mg - 0.5 mg) 3 ml Nebulizer once Route: Nebulizer; [facility] 11/03 06:36 Follow up: Response: No adverse reaction 7 11/02 23:29 Drug: Acetaminophen-Codeine PO (300 mg-30 mg) 2 tabs PO once; RASS on ADMIN: Combtv4, me1 Very Agttd3, Agttd2, Rstlss1, AlertClm0, Drwsy-1, Lt Sdtn-2, Mod Sdtn-3, Dp Sdtn-4, UnArsble-5 Route: PO; 11/03 06:36 Follow up: Response: No adverse reaction 7 11/02 23: Drug: Ondansetron PO 4 mg PO once Route: PO; [facility] 11/03 06:36 Follow up: Response: No adverse reaction jw7 02:00 Drug: morphine IVP or IV 4 mg IVP once over 4 mins Route: IVP; Infused Over: 4 mins; [facility] Site: right hand; 06:35 Follow up: Response: No adverse reaction; Marked relief of symptoms jw7 02:00 Drug: Ondansetron IVP 4 mg IVP once; over 2 minutes Route: IVP; Site: right hand; jw 06:34 Follow up: Response: No adverse reaction; Marked relief of symptoms jw7 02:10 Drug: Rocephin - Rocephin (cefTRIAXone) IVPB 1 grams IVPB once over 30 mins; (mix in 50 jw7 mL NS) Route: IVPB; Infused Over: 30 mins; Site: right hand; 06:34 Follow up: Response: No adverse reaction; IV Status: Completed infusion; IV Intake: [id number] 02:48 Drug: DuoNeb Nebulize (3:1) (2.5 mg - 0.5 mg) 3 ml Nebulizer once Route: Nebulizer; jw 06:34 Follow up: Response: No adverse reaction jw7 02:48 Drug: Zithromax IVPB 500 mg IVPB once over 1 hrs; mix in 250 mL NS Route: IVPB; Infused jw7 Over: 1 hrs; Site: right hand; 06:34 Follow up: Response: No adverse reaction; IV Status: Completed infusion; IV Intake: jw7 250ml 03:11 Drug: diphenhydrAMINE IVP 25 mg IVP once Route: IVP; Site: right hand; j7 06:34 Follow up: Response: No adverse reaction jw7 Disposition Summary: 11/03/23 04:11 Hospitalization Ordered Notes: Hospitalization Status: Inpatient Admission sp4 Provider: Abhi Willis4 Condition: Stable(11/03/23 04:11) sp4 Problem: new(11/03/23 04:11) sp4 Symptoms: have improved(11/03/23 04:11) sp4 Bed/Room Type: Standard sp4 Location: [facility] ER HOLD(11/03/23 06:32) as6 Room Assignment: ERHOLD-(11/03/23 06:32) as6 Diagnosis - COPD/ Chronic obstructive pulmonary disease with (acute) exacerbation(11/03/23 sp4 04:11) - Alcohol abuse with intoxication, uncomplicated sp4 Forms: - Medication Reconciliation Form sp4 - SBAR form sp4 - Leadership Thank You Letter sp4 Signatures: Dispatcher [employer] EDParish Gleason RN RN as6 Kaila Mckeon RN RN jw7 Omega Luke RN RN jjJose Ely MD MD sp4 Radha Bliss RN RN me1 Corrections: (The following items were deleted from the chart) 00:13 11/02 22:48 Cardiac monitoring ordered. sp4 jw7 11/03 00:13 11/02 22:48 EKG - Nurse/Tech ordered. sp4 jw7 11/03 00:54 00:22 Home sp4 as6 00:54 00:22 new sp4 as6 00:54 00:22 have improved sp4 as6 00:54 00:22 Stable sp4 as6 00:54 00:22 COPD/ Chronic obstructive pulmonary disease with (acute) exacerbation sp4 as6 00:54 00:22 Alcohol abuse with intoxication sp4 as6 00:54 00:22 Alcoholism, tremors, hypertensive disorder, noncompliance with medical treatment as6 sp4 03:21 02:54 SARS-COV-2 RT PCR+[id number].BRZ ordered. EDMS EDMS 06:32 04:11 Telemetry/MedSurg (Inpatient) sp4 as6 06:32 04:11 sp4 as6
[2023-11-03 00:33] LABS: ALT/SGPT 21 U/L (16-61); AST/SGOT 14 U/L (15-37); Albumin 2.9 g/dL (3.4-5.0); Alkaline Phosphatase 56 U/L (45-117); BUN Blood Urea Nitrogen 6 mg/dL (7-18); Bicarbonate 29 mEq/L (21-32); Bilirubin Total 0.2 mg/dL (0.2-1.0); Glomerular Filtration Rate 116 ml/min (=/>90); Glucose Level 84 mg/dL (74-106); NT PRO-BNP 133 pg/mL (<125); Potassium 3.6 mEq/L (3.5-5.1); Protein, Total 6.7 g/dL (6.4-8.2); Sodium Level 141 mEq/L (136-145)
[2023-11-03 00:51] LABS: Bilirubin Direct < 0.1 mg/dL (0-0.2); Bilirubin Indirect, Calculated ND mg/dL (0.2-0.8)
[2023-11-03] MEDS ORDERED: CEFTRIAXONE 1000 MG/VIAL ONE ×2 (01:59→07:27)
[2023-11-03] MEDS ORDERED: ALBUTEROL 2.5 MG/3 ML NEB SOL ONE (02:00)
[2023-11-03] MEDS ORDERED: AZITHROMYCIN 500 MG INJ IVPB ONE ×2 (02:00→07:27)
[2023-11-03] MEDS ORDERED: MORPHINE 4 MG/ML SYR ONE (02:00)
[2023-11-03] MEDS ORDERED: NA CHLORIDE 0.9% 250 ML ONE ×2 (02:00→07:28)
[2023-11-03] MEDS ORDERED: ONDANSETRON 4 MG/2 ML VIAL ONE (02:00)
[2023-11-03] MEDS ORDERED: IPRATROPIUM BROM 0.5MG/2.5ML ONE (02:00)
[2023-11-03] MEDS ORDERED: NA CHLORIDE 0.9% 50 ML ONE ×2 (02:01→07:28)
[2023-11-03] MEDS ORDERED: DIPHENHYDRAMINE 50 MG/ML VIAL ONE (03:02)
[2023-11-03 03:48] LABS: SARS-CoV-2 Antigen Rapid Res Negative (Negative)
[2023-11-03] MEDS ORDERED: ONDANSETRON 4 MG/2 ML VIAL IV PRN (04:29)
--- NOTE | 2023-11-03 04:42 | P.HP ---
Patient History Date of Service: 11/03/23 Reason for admission: COPD exacerbation History of Present Illness: 53-year-old male patient with history of multiple medical problems including COPD, chronic hypoxic respiratory failure, hypertension Presented to the emergency department with complaints of cough and shortness of breath. Symptoms have been going on for the last 2 to 3 days. Cough is productive with clear sputum. Associated with progressively worsening shortness of breath. Denies fever or chills. Denies chest pain, palpitations. The patient was seen in the ED yesterday, left AGAINST MEDICAL ADVICE and came back to the emergency department ED COURSE He was afebrile at presentation. On 3 L of oxygen which is his home oxygen requirement Found to have leukocytosis Tested for COVID-19 and influenza which were negative. Allergies lisinopril Allergy (Verified 04/26/22 13:11) Shortness of breath BC powder Allergy (Mild, Uncoded 04/26/22 13:10) Hives Lisinopril Allergy (Mild, Uncoded 04/26/22 13:10) Shortness of breath Home Medications: predniSONE [Prednisone*] 10 mg PO DAILY #30 tab 04/28/22 Budesonide/Formoterol Fumarate [Symbicort 160-4.5 Mcg Inhaler] 2 puff IH DAILY 06/23/23 Spironolactone [Aldactone*] 25 mg PO DAILY 06/23/23 Tiotropium [place] [Spiriva] 2 puff IH DAILY 06/23/23 Amlodipine [Norvasc*] 10 mg PO DAILY 06/24/23 Gabapentin 100 mg PO TID 10/12/23 - Past Medical/Surgical History Diabetic: No -: Hypertension -: COPD on chronic steroids/home O2 -: Tobacco abuse -: Alcohol abuse -: GERD -: Obesity -: BUD -: 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 - Family History Mother -: Diabetes, Cancer Notes: colon cancer Father -: Lung disease Notes: COPD - Social History Alcohol use: Yes CD- Drugs: No Caffeine use: Yes Review of Systems 10-point ROS is otherwise unremarkable Physical Examination - Physical Exam General: Alert, Oriented x3 HEENT: Atraumatic, PERRLA Neck: Supple, JVD not distended Respiratory: Normal air movement, Expiratory wheezes Cardiovascular: No edema, Regular rate/rhythm Gastrointestinal: Soft and benign, No tenderness, No rebound Musculoskeletal: No swelling, No erythema Integumentary: No rashes, No erythema Neurological: Normal speech, Sensation intact - Studies Laboratory Data (last 24 hrs) 11/02/23 11/02/23 11/02/23 23:55 23:55 23:55 WBC 16.40 H Hgb 12.8 L Hct 38.0 L Plt Count 224 PT 10.3 INR 0.93 Sodium 141 Potassium 3.6 BUN 6 L Creatinine 0.56 L Glucose 84 Magnesium 2.0 Total Bilirubin 0.2 AST 14 L ALT 21 Alkaline Phosphatase 56 Microbiology Data (last 24 hrs): 11/03/23 03:10 Nasopharnyx Influenza Type A Antigen Screen - Final 11/03/23 03:10 Nasopharnyx Influenza Type B Antigen Screen - Final Assessment and Plan - Problems (Diagnosis) (1) Alcohol intoxication Current Visit: No Status: Acute (2) Chronic respiratory failure with hypoxia Current Visit: No Status: Acute (3) COPD exacerbation Onset Date: 09/07/18 Current Visit: No Status: Acute (4) HTN (hypertension) Onset Date: 02/11/18 Current Visit: No Status: Chronic - Advance Directives Does patient have a Living Will: No Does patient have a Durable POA for Healthcare: No Assessment/Plan Patient Problems/Diagnoses: Patient Problems: Alcohol intoxication (Acute) F10.929 Chest pain (Acute) R07.9 Epigastric pain (Acute) R10.13 Esophagitis (Acute) K20.90 Chronic respiratory failure with hypoxia (Acute) J96.11 Alcohol withdrawal (Acute) F10.939 Tremors of nervous system (Acute 11/15/18) R25.1 Alcohol abuse (Acute 11/15/18) F10.10 Delirium tremens (Acute 11/15/18) F10.231 COPD exacerbation (Acute 09/07/18) J44.1 Pneumonia of both lower lobes (Acute 07/20/18) J18.9 Hypoxia (Acute 07/20/18) R09.02 Dyspnea (Acute 07/20/18) R06.00 Alcohol abuse (Acute 02/11/18) F10.10 COPD (chronic obstructive pulmonary disease) (Chronic 02/11/18) J44.9 Tobacco abuse (Chronic 02/11/18) Z72.0 HTN (hypertension) (Chronic 02/11/18) I10 Hyponatremia (Acute 02/11/18) E87.1 Assessment: Patient Problems: Alcohol intoxication (Acute) F10.929 Chest pain (Acute) R07.9 Epigastric pain (Acute) R10.13 Esophagitis (Acute) K20.90 Chronic respiratory failure with hypoxia (Acute) J96.11 Alcohol withdrawal (Acute) F10.939 Tremors of nervous system (Acute 11/15/18) R25.1 Alcohol abuse (Acute 11/15/18) F10.10 Delirium tremens (Acute 11/15/18) F10.231 COPD exacerbation (Acute 09/07/18) J44.1 Pneumonia of both lower lobes (Acute 07/20/18) J18.9 Hypoxia (Acute 07/20/18) R09.02 Dyspnea (Acute 07/20/18) R06.00 Alcohol abuse (Acute 02/11/18) F10.10 COPD (chronic obstructive pulmonary disease) (Chronic 02/11/18) J44.9 Tobacco abuse (Chronic 02/11/18) Z72.0 HTN (hypertension) (Chronic 02/11/18) I10 Hyponatremia (Acute 02/11/18) E87.1 Plan: ASSESSMENT Acute exacerbation of COPD Chronic hypoxic respiratory failure Acute alcohol intoxication Hypertension Obesity PLAN Patient will be admitted to the hospital Continuous pulse oximetry Continue supplemental oxygen-currently on 3 L of oxygen Will start the patient on IV ceftriaxone, IV Zithromax IV Solu-Medrol 40 mg IV every 8 hours Start albuterol and Atrovent nebulization Patient was tested for COVID-19 and influenza which were negative Patient has history of chronic alcohol abuse. Intoxicated the time of presentation. He is at risk for alcohol withdrawal. Will start chlordiazepoxide 25 mg p.o. every 6 hours Lovenox 40 mg subcutaneous daily for DVT prophylaxis
[2023-11-03] MEDS ORDERED: chlordiazePOXIDE HCl 25 MG CAP PO SCH (06:00)
[2023-11-03] MEDS ORDERED: IPRATROPIUM BROM 0.5MG/2.5ML NEB SCH (07:00)
[2023-11-03] MEDS ORDERED: ALBUTEROL 2.5 MG/3 ML NEB SOL NEB SCH (07:00)
[2023-11-03] MEDS ORDERED: METHYLPREDNISOLONE 40 MG INJ ONE (07:27)
[2023-11-03] MEDS ORDERED: chlordiazePOXIDE HCl 25 MG CAP ONE (07:28)
[2023-11-03 08:48] VITALS: O2SAT 92
[2023-11-03] MEDS ORDERED: ENOXAPARIN 40 MG/0.4 ML SQ ONE (08:50)
[2023-11-03 08:55] VITALS: BP 128/68; TEMP 98.2
[2023-11-03] MEDS ORDERED: ENOXAPARIN 40 MG/0.4 ML SQ SCH (09:00)
[2023-11-03] MEDS ORDERED: AZITHROMYCIN IV 500 MG in NA CHLORIDE 0.9% 250 ML IVPB SCH (09:00)
[2023-11-03] MEDS ORDERED: CEFTRIAXONE 1,000 MG in NA CHLORIDE 0.9% 50 ML IVPB SCH (09:00)
[2023-11-03] MEDS ORDERED: METHYLPREDNISOLONE 40 MG INJ IV SCH (09:00)
--- NOTE | 2023-11-03 15:55 | RAD REPORT ---
EXAM DESCRIPTION: RAD - Chest Single View - 11/02/2023 11:04 pm CLINICAL HISTORY: The patient is 53 years old and is Male; CHEST PAIN TECHNIQUE: Frontal view of the chest. COMPARISON: No relevant prior studies available. FINDINGS: Lungs: Unremarkable. No consolidation. Pleural space: Unremarkable. No pneumothorax. Heart: Unremarkable. Mediastinum: Unremarkable. Normal mediastinal contour. Bones/joints: No acute findings. IMPRESSION: No acute findings in the chest. Electronically signed by: Sunil Torres MD 11/02/2023 11:24 PM [facility] Due to temporary technical issues with the PACS/Fluency reporting system, reports are being signed by the in house radiologists without review as a courtesy to insure prompt reporting. The interpreting radiologist is fully responsible for the content of the report.
--- NOTE | 2023-11-03 19:12 | P.DS ---
Admission Date: 11/03/23 Discharge Date: 11/03/23 Disposition: ELOPED Reason for Admission: COPD exacerbation - Problems (1) Alcohol abuse Onset Date: 11/15/18 Status: Acute (2) COPD exacerbation Onset Date: 09/07/18 Status: Acute (3) Chronic respiratory failure with hypoxia Status: Acute Brief History of Present Illness: 53-year-old male patient with history of multiple medical problems including COPD, chronic hypoxic respiratory failure, hypertension, chronic alcoholism Presented to the emergency department with complaints of cough and shortness of breath. Symptoms have been going on for the last 2 to 3 days. Cough is productive with clear sputum. Associated with progressively worsening shortness of breath. Denies fever or chills. Denies chest pain, palpitations. The patient was seen in the ED the day before, left AGAINST MEDICAL ADVICE and came back to the emergency department ED COURSE He was afebrile at presentation. On 3 L of oxygen which is his home oxygen requirement Found to have leukocytosis Tested for COVID-19 and influenza which were negative. Patient was hospitalized for further management of COPD exacerbation. Hospital Course: He was admitted and started on IV steroid, bronchodilators and antibiotics. Mike mccoy's alcohol level was elevated on presentation. He was placed on Librium for pending alcohol withdrawal. Patient was located in the ER hold. I was informed patient eloped while a code was ongoing on another patient. Vital Signs/Physical Exam: Temp Pulse Resp BP Pulse Ox 98.2 F 91 H 22 H 128/68 92 11/03/23 08:00 11/03/23 08:00 11/03/23 08:00 11/03/23 08:00 11/03/23 08:00 Laboratory Data at Discharge: WBC 16.40 thou/uL (4.3-10.9) H 11/02/23 23:55 Hgb 12.8 g/dL (13.6-17.9) L 11/02/23 23:55 Hct 38.0 % (39.6-49.0) L 11/02/23 23:55 Plt Count 224 thou/uL (152-406) 11/02/23 23:55 PT 10.3 SECONDS (9.5-12.5) 11/02/23 23:55 INR 0.93 11/02/23 23:55 Sodium 141 mEq/L (136-145) 11/02/23 23:55 Potassium 3.6 mEq/L (3.5-5.1) 11/02/23 23:55 BUN 6 mg/dL (7-18) L 11/02/23 23:55 Creatinine 0.56 mg/dL (0.70-1.30) L 11/02/23 23:55 Glucose 84 mg/dL (74-106) 11/02/23 23:55 Magnesium 2.0 mg/dL (1.6-2.4) 11/02/23 23:55 Total Bilirubin 0.2 mg/dL (0.2-1.0) 11/02/23 23:55 AST 14 U/L (15-37) L 11/02/23 23:55 ALT 21 U/L (16-61) 11/02/23 23:55 Alkaline Phosphatase 56 U/L (45-117) 11/02/23 23:55 Home Medications: predniSONE [Prednisone*] 10 mg PO DAILY #30 tab 04/28/22 Budesonide/Formoterol Fumarate [Symbicort 160-4.5 Mcg Inhaler] 2 puff IH DAILY 06/23/23 Spironolactone [Aldactone*] 25 mg PO DAILY 06/23/23 Tiotropium [place] [Spiriva] 2 puff IH DAILY 06/23/23 Amlodipine [Norvasc*] 10 mg PO DAILY 06/24/23 Gabapentin 100 mg PO TID 10/12/23
== END 2023-11-03 10:11 | disposition left against medical advice (07) | DRG 190 ==
LOC: ER 22:44 → ERHOLD 11-03 04:29
PROVIDERS: ADMIT Internal Medicine; ATTEND Internal Medicine
DX: J44.1 Chronic obstructive pulmonary disease with (acute) exacerbation (principal); J96.21 Acute and chronic respiratory failure with hypoxia; Z99.81 Dependence on supplemental oxygen; Z79.52 Long term (current) use of systemic steroids; F10.129 Alcohol abuse with intoxication, unspecified; Y90.6 Blood alcohol level of 120-199 mg/100 ml; Z72.0 Tobacco use; K21.9 Gastro-esophageal reflux disease without esophagitis; E66.9 Obesity, unspecified; Z68.30 Body mass index [BMI] 30.0-30.9, adult
CPT/HCPCS: 36415; 71045; 80048; 80076; 82077; 82805; 83605; 83735; 83880; 84484; 85025; 85610; 87040; 87804; 87811; 94640; 96372; 99285; J0696; J1200; J1650; J2405; J2920; J2930; J7050; J7613; J7644; Q0162

== ENCOUNTER → 2023-11-11 | Emergency (ER) | payer OTHER ==
[~2023-11-11] MED LIST changes: -ACETAMINOPHEN 500 MG TAB PO PRN; -ALBUTEROL 2.5 MG/3 ML NEB SOL NEB PRN; -AMLODIPINE 10 MG TAB PO SCH; -AMOX/K CLAV 875 MG TAB PO SCH; -ARFORMOTEROL TARTRATE 15 MCG/2 ML VIAL.NEB NEB SCH; -AZITHROMYCIN 500 MG INJ IVPB ONE; -CEFTRIAXONE 2000 MG/VIAL ONE; +CODEINE 30MG/APAP 300MG TAB ONE; -GABAPENTIN 100 MG CAP PO SCH; -IPRATROPIUM BROM 0.5MG/2.5ML NEB SCH; +LORazepam 2 MG/ML VIAL ONE; -METHYLPREDNISOLONE 40 MG INJ IV SCH; -METOPROLOL TAR 50 MG TAB PO SCH; -MORPHINE 4 MG/ML SYR ONE; +NA CHLORIDE 0.9% 1,000 ML ONE; -NA CHLORIDE 0.9% 100 ML ONE; -NA CHLORIDE 0.9% 250 ML ONE; -ONDANSETRON 4 MG/2 ML VIAL ONE; -THIAMINE HCL 100 MG TABLET ONE; -THIAMINE HCL 100 MG TABLET PO SCH; -chlordiazePOXIDE HCl 25 MG CAP PO PRN
--- OUTSIDE RECORDS SUMMARY | 2023-11-11 18:30 | XMS REPORT | Continuity of Care Document ---
Author Name Unknown Address [address] [facility] [address] th[address] Address [address] [facility] [address] [place] [address] Care Team Providers Care Brim Edge Trimmer Name Role Phone DARIEN LOBO Attending Clinician Unavailable [facility] Attending [facility] n Unavailable Payers Payer Name Policy Type Policy Number Effective Date Expirati on Date Source GLORIA GONSALVES [employer] 2: [employer] O [employer]IST[employer] 94 ON 9 [id number] 2023 00:00:00 Encounters Start Date/Time End Date/Time Encounter Type Admission Type Attending Clinicians Care Facility Care Department Encounter ID Source 2023-07-15 00:00:00 2023-07-15 00:00:00 Outpatient DARIEN LOBO [id number] Mariam Alcantara 2023-06-16 11:30:00 2023-06-16 11:30:00 Outpatient DARIEN LOBO [id number] Mariam Alcantara 2023-05-18 00:00:00 2023-05-18 00:00:00 MARIAM Guan [id number] Mariam Alcantara
--- NOTE | 2023-11-11 19:32 | RAD REPORT ---
EXAM DESCRIPTION: RAD - Chest Single View - 11/11/2023 7:21 pm CLINICAL HISTORY: CHEST PAIN Chest pain. COMPARISON: Chest Single View dated 11/02/2023; Chest Single View dated 11/01/2023; Chest Single Vie w dated 10/12/2023; Chest Single View dated 10/05/2023 FINDINGS: Portable technique limits examination quality. The lungs are emphysematous but grossly clear. The heart is upper limit of normal in size. No displac ed fractures. IMPRESSION: COPD.
[2023-11-11 20:31] LABS: Absolute Lymphocytes (CBC) 0.8 K/uL (0.7-4.9); Hematocrit 46.5 % (39.6-49.0); Lymphocytes % 8.2 % (15.3-44.8); MPV 6.6 fL (7.6-11.3); Platelets 305 thou/uL (152-406)
[2023-11-11 20:42] LABS: Protime INR 0.95
[2023-11-11 20:56] LABS: Bilirubin Direct 0.1 mg/dL (0-0.2); Bilirubin Indirect, Calculated 0.3 mg/dL (0.2-0.8); Bilirubin Total 0.4 mg/dL (0.2-1.0); Magnesium 2.2 mg/dL (1.6-2.4); Potassium 4.5 mEq/L (3.5-5.1); Protein, Total 8.1 g/dL (6.4-8.2); Troponin High Sensitivity 7.1 pg/mL (<58.9)
[2023-11-11 21:29] LABS: SARS-COV-2 RT PCR NEGATIVE (NEGATIVE)
--- NOTE | 2023-11-11 21:31 | EDPHYS ---
Physician Documentation [facility] Name: Randy Briones Age: 53 yrs Sex: Male : 1970 Arrival Date: 11/11/2023 Time: 18:27 Bed 6 Private MD: Adrianna Michaels H ED Physician Bg Briones HPI: 11/11 23:13 This 53 yrs old Male presents to ER via Wheelchair with complaints of Chest Pain, sb4 Shortness Of Breath. 23:13 patient presents with complaints of chest pain and shortness of breath but he is mainly sb4 concerned about detoxing from alcohol as his last drink was at 1pm today. says his chest pain/sob feels similar to his prior COPD exacerbations, as he is noncompliant with his home O2. Historical: - Allergies: 18:51 Lisinopril; ll1 - PMHx: 18:51 Alcoholism; home 02 3LNC PRN; Hypertension; COPD; ll1 - PSHx: 18:51 Amputation of left index finger; ll1 - Immunization history:: Adult Immunizations up to date. - Social history:: Smoking status: Patient reports the use of cigarette tobacco products, smokes two packs cigarettes per day. ROS: 23:13 Constitutional: Negative for fever, chills, and weight loss, sb4 23:13 Cardiovascular: Positive for chest pain, 23:13 Respiratory: Positive for shortness of breath, 23:13 All other systems are negative, Exam: 23:13 Constitutional: This is a well developed, well nourished patient who is awake, alert, sb4 and in no acute distress. Head/Face: Normocephalic, atraumatic. Eyes: Extra-ocular motions intact. Periorbital areas with no swelling, redness, or edema. ENT: Mucous membranes moist. Cardiovascular: Regular rate and rhythm with a normal S1 and S2. Respiratory: Lungs have equal breath sounds bilaterally, clear to auscultation and percussion. No rales, rhonchi or wheezes noted. No increased work of breathing, no retractions or nasal flaring. Abdomen/GI: Soft, non-tender, no distension. Skin: Warm, dry with normal turgor. Normal color with no rashes, no lesions, and no evidence of cellulitis. MS/ Extremity: Pulses equal, no cyanosis. Neurovascular intact. Full, normal range of motion. Neuro: Awake and alert, GCS 15, oriented to person, place, time, and situation. Motor strength 5/5 in all extremities. Sensory grossly intact. Vital Signs: 18:49 BP 145 / 104; Pulse 101; Resp 22; Temp 97.7; Pulse Ox 97% on R/A; Weight 79.38 kg; ll1 Height 5 ft. 4 in. ; Pain 8/10; 20:41 BP 118 / 96; Pulse 89; Resp 22; Pulse Ox 98% on 2 lpm NC; rv 21:47 BP 137 / 78; Pulse 111; Resp 22; Temp 98; Pulse Ox 99% on Nebulizer Mask; rv 18:49 Body Mass Index 30.04 (79.38 kg, 162.56 cm) ll1 18:49 Pain Scale: Adult ll1 Shani Coma Score: 20:41 Eye Response: spontaneous(4). Motor Response: obeys commands(6). Verbal Response: rv oriented(5). Total: 15. MDM: 18:50 Patient medically screened. sb4 23:13 Differential diagnosis: copd exacerbation, pneumonia, covid, flu, ACS. Data reviewed: sb4 vital signs, nurses notes, lab test result(s), EKG, radiologic studies, and as a result, I will discharge patient. Historians other than the Patient: Spouse/Significant Other: . Counseling: I had a detailed discussion with the patient and/or guardian regarding the historical points, exam findings, and any diagnostic results supporting the discharge/admit diagnosis, the presence of at least one elevated blood pressure reading (>120/80) during this emergency department visit, lab results, radiology results, to return to the emergency department if symptoms worsen or persist or if there are any questions or concerns that arise at home, smoking cessation. 11/11 18:50 Order name: Basic Metabolic Panel; Complete Time: 20:59 sb4 11/11 18:50 Order name: CBC with Diff; Complete Time: 20:34 sb4 11/11 18:50 Order name: LFT's; Complete Time: 20:59 sb4 11/11 18:50 Order name: Magnesium; Complete Time: 20:59 sb4 11/11 18:50 Order name: NT PRO-BNP; Complete Time: 20:59 sb4 11/11 18:50 Order name: PT-INR; Complete Time: 20:42 sb4 11/11 18:50 Order name: Troponin HS; Complete Time: 20:59 sb4 11/11 18:52 Order name: ETOH Level; Complete Time: 21:00 4 11/11 20:25 Order name: COVID-19/FLU A+B; Complete Time: 21:30 kmf 11/11 18:50 Order name: XRAY Chest (1 view); Complete Time: 19:46 sb4 11/11 18:50 Order name: EKG; Complete Time: 18:51 sb4 11/11 18:50 Order name: Cardiac monitoring; Complete Time: 20:30 sb4 11/11 18:50 Order name: EKG - Nurse/Tech [facility] 11/11 18:50 Order name: IV Saline Lock; Complete Time: 20:30 sb4 11/11 18:50 Order name: Labs collected and sent; Complete Time: 20:30 4 11/11 18:50 Order name: O2 Per Protocol; Complete Time: 20:30 4 11/11 18:50 Order name: O2 Sat Monitoring; Complete Time: 20:30 sb4 Administered Medications: 20:40 Drug: Ativan IVP 2 mg IVP once Route: IVP; Site: right forearm; rv 20:40 Drug: DuoNeb Nebulize (3:1) (2.5 mg - 0.5 mg) 3 ml Nebulizer once Route: Nebulizer; rv 20:41 Drug: Aspirin PO Chewable Tablet 324 mg PO once; 81 mg tablets x 4 Route: PO; rv 21:07 Drug: Thiamine IV 100 mg IV at calculated rate once Route: IV; Rate: calculated rate; rv Site: right antecubital; 21:07 Drug: foLIC Acid IVPB 1 mg IVPB once Route: IVPB; Site: right antecubital; rv 21:07 Drug: NS 0.9% IV 1000 ml IV at 1 bolus Per protocol; 1000 mL bolus Route: IV; Rate: 1 rv bolus; Site: right antecubital; 21:07 Drug: Acetaminophen-Codeine PO (300 mg-30 mg) 1 tablet PO once; RASS on ADMIN: Combtv4, rv Very Agttd3, Agttd2, Rstlss1, AlertClm0, Drwsy-1, Lt Sdtn-2, Mod Sdtn-3, Dp Sdtn-4, UnArsble-5 Route: PO; Disposition Summary: 11/11/23 21:30 Discharge Ordered Notes: Location: Home sb4 Problem: an acute exacerbation sb4 Symptoms: have improved sb4 Condition: Stable sb4 Diagnosis - COPD/ Chronic obstructive pulmonary disease, unspecified sb4 - Alcohol abuse sb4 Followup: sb4 - With: Adrianna Michaels, - When: 2 - 3 days - Reason: Recheck today's complaints, Continuance of care, Re-evaluation by your physician Forms: - Medication Reconciliation Form sb4 - Thank You Letter sb4 - Antibiotic Education sb4 - Prescription Opioid Use sb4 - Patient Portal Instructions sb4 - Leadership Thank You Letter sb4 Signatures: Dispatcher [employer] Darrius Wen RN Estella Pacheco RN RN llJessica Pavon, PARich PARich sb4
--- NOTE | 2023-11-11 21:31 | ER ---
Nurse's Notes [facility] Name: Randy Brionse Age: 53 yrs Sex: Male : 1970 Arrival Date: 11/11/2023 Time: 18:27 Bed 6 Private MD: Adrianna Michaels H Diagnosis: COPD/ Chronic obstructive pulmonary disease, unspecified;Alcohol abuse Presentation: 11/11 18:49 Chief complaint: Patient states: CP worse than usual and SOB. Coronavirus screen: ll1 Client denies travel out of the [place] in the last 14 days. difficulty breathing, headache, shortness of breath. Ebola Screen: Patient denies travel to an Ebola-affected area in the 21 days before illness onset. Initial Sepsis Screen: Does the patient meet any 2 criteria? No. Patient's initial sepsis screen is negative. Does the patient have a suspected source of infection? No. Patient's initial sepsis screen is negative. Risk Assessment: Do you want to hurt yourself or someone else? Patient reports no desire to harm self or others. Onset of symptoms was 2008. 18:49 Method Of Arrival: Wheelchair ll1 18:49 Acuity: CANDACE 2 ll1 Historical: - Allergies: 18:51 Lisinopril; ll1 - PMHx: 18:51 Alcoholism; home 02 3LNC PRN; Hypertension; COPD; ll1 - PSHx: 18:51 Amputation of left index finger; ll1 - Immunization history:: Adult Immunizations up to date. - Social history:: Smoking status: Patient reports the use of cigarette tobacco products, smokes two packs cigarettes per day. Screenin:41 [facility] ED Fall Risk Assessment (Adult) History of falling in the last 3 months, rv including since admission No falls in past 3 months (0 pts) Score/Fall Risk Level 0 - 2 = Low Risk Oriented to surroundings, Maintained a safe environment, Educated pt \T\ family on fall prevention, incl call for assistance when getting out of bed, Assessed \T\ reinforced patient's understanding of fall precautions. Abuse screen: Denies threats or abuse. Denies injuries from another. Nutritional screening: No deficits noted. Tuberculosis screening: No symptoms or risk factors identified. Assessment: 20:41 General: Appears uncomfortable, Behavior is calm, cooperative. Pain: Complains of pain rv in NECK Pain does not radiate. Pain began 2-3 days ago. Neuro: Level of Consciousness is awake, alert, obeys commands, Oriented to person, place, time, situation. Cardiovascular: Capillary refill < 3 seconds Patient's skin is warm and dry. Respiratory: Airway is patent Respiratory effort is labored, Respiratory pattern is tachypnea Breath sounds with wheezes bilaterally. GI: No signs and/or symptoms were reported involving the gastrointestinal system. : No signs and/or symptoms were reported regarding the genitourinary system. Vital Signs: 18:49 BP 145 / 104; Pulse 101; Resp 22; Temp 97.7; Pulse Ox 97% on R/A; Weight 79.38 kg; ll1 Height 5 ft. 4 in. ; Pain 8/10; 20:41 BP 118 / 96; Pulse 89; Resp 22; Pulse Ox 98% on 2 lpm NC; rv 21:47 BP 137 / 78; Pulse 111; Resp 22; Temp 98; Pulse Ox 99% on Nebulizer Mask; rv 18:49 Body Mass Index 30.04 (79.38 kg, 162.56 cm) ll1 18:49 Pain Scale: Adult ll1 Goree Coma Score: 20:41 Eye Response: spontaneous(4). Motor Response: obeys commands(6). Verbal Response: rv oriented(5). Total: 15. ED Course: 18:28 Patient arrived in ED. mr 18:28 Adrianna Michaels DO is Private Physician. mr 18:50 Jessica Petersen [facility]-C [facility]. sb4 18:50 Bg Briones MD is Attending Physician. sb4 18:51 Triage completed. ll1 18:51 Arm band placed on. ll1 19:23 XRAY Chest (1 view) In Process Unspecified. EDMS 20:29 Darrius Nayak, BRIGETTE is Primary Nurse. rv 20:41 Patient has correct armband on for positive identification. Client placed on continuous rv cardiac and pulse oximetry monitoring. NIBP monitoring applied. product marketer on. 20:41 No provider procedures requiring assistance completed. Inserted saline lock: 20 gauge rv in right forearm, using aseptic technique. Blood collected. Missed attempt(s): 20 gauge in right antecubital area. 21:30 Adrianna Michaels DO is Referral Physician. sb4 21:48 IV discontinued, intact, bleeding controlled, No redness/swelling at site. Pressure rv dressing applied. Administered Medications: 20:40 Drug: Ativan IVP 2 mg IVP once Route: IVP; Site: right forearm; rv 20:40 Drug: DuoNeb Nebulize (3:1) (2.5 mg - 0.5 mg) 3 ml Nebulizer once Route: Nebulizer; rv 20:41 Drug: Aspirin PO Chewable Tablet 324 mg PO once; 81 mg tablets x 4 Route: PO; rv 21:07 Drug: Thiamine IV 100 mg IV at calculated rate once Route: IV; Rate: calculated rate; rv Site: right antecubital; 21:07 Drug: foLIC Acid IVPB 1 mg IVPB once Route: IVPB; Site: right antecubital; rv 21:07 Drug: NS 0.9% IV 1000 ml IV at 1 bolus Per protocol; 1000 mL bolus Route: IV; Rate: 1 rv bolus; Site: right antecubital; 21:07 Drug: Acetaminophen-Codeine PO (300 mg-30 mg) 1 tablet PO once; RASS on ADMIN: Combtv4, rv Very Agttd3, Agttd2, Rstlss1, AlertClm0, Drwsy-1, Lt Sdtn-2, Mod Sdtn-3, Dp Sdtn-4, UnArsble-5 Route: PO; Medication: 20:41 VIS not applicable for this client. rv Outcome: 21:30 Discharge ordered by MD. sb4 21:47 Discharged to home ambulatory, rv 21:47 Condition: good 21:47 Discharge instructions given to LEFT BEFORE INSTRUCTIONS 21:48 Patient left the ED. rv Signatures: Dispatcher [employer] EDPR HiltonBianca, Paddy Reg mr Darrius Nayak, RN RN rv Estella Cano RN RN ll1 Jessica Petersen PA-C PARich sb4 Corrections: (The following items were deleted from the chart) 18:51 18:49 BP 145 / 104; Pulse 101bpm; Resp 24bpm; Pulse Ox 97% RA; Temp 97.7F; 79.38 kg; ll1 Height 5 ft. 4 in.; BMI: 30.0; Pain 8/10, Adult; ll1
[2023-11-11 23:42] VITALS: BP 137/78; TEMP 98; O2SAT 99
== END ==
LOC: ER 18:27
DX: J44.9 Chronic obstructive pulmonary disease, unspecified (principal); F10.10 Alcohol abuse, uncomplicated; I10 Essential (primary) hypertension; F17.210 Nicotine dependence, cigarettes, uncomplicated; Z11.52 Encounter for screening for COVID-19; Z79.899 Other long term (current) drug therapy
CPT/HCPCS: 85025; 80048; 36415; 83735; 85610; 80076; 84484; 83880; 0240U; 71045; 94640; 99285; 82077; J7613; J7644; J7030

== ENCOUNTER → 2023-11-17 | Emergency (ER) | payer OTHER ==
[~2023-11-17] MED LIST changes: -ASPIRIN 81 MG CHEWABLE TABLET ONE; -CODEINE 30MG/APAP 300MG TAB ONE; +METHYLPREDNISOLONE 125 MG INJ ONE; +ONDANSETRON 4 MG/2 ML VIAL ONE
--- OUTSIDE RECORDS SUMMARY | 2023-11-17 10:41 | XMS REPORT | Continuity of Care Document ---
Author Name Unknown Address [address] [facility] [address] th[address] Address [address] [facility] [address] [place] [address] Care Team Providers Care Constitutional Law Professor Name Role Phone DARIEN LOBO Attending Clinician Unavailable MARIAM CHAN [facility] Attending Clinicia n Unavailable Payers Payer Name Policy Type Policy Number Effective Date Expirati on Date Source GLORIA GONSALVES [facility] [employer] [facility]: [employer] RESIDENT 94 ON 9 [id number] 2023 00:00:00 Encounters Start Date/Time End Date/Time Encounter Type Admission Type Attending Clinicians Care Facility Care Department Encounter ID Source 2023-07-15 00:00:00 2023-07-15 00:00:00 Outpatient DARIEN LOBO [id number] Mariam Alcantara 2023-06-16 11:30:00 2023-06-16 11:30:00 Outpatient DARIEN LOBO [id number] Mariam Alcantara 2023-05-18 00:00:00 2023-05-18 00:00:00 MARIAM Guan [id number] Mariam Alcantara
[2023-11-17 11:30] LABS: Absolute Lymphocytes (CBC) 2.1 K/uL (0.7-4.9); Hematocrit 43.7 % (39.6-49.0); Lymphocytes % 16.4 % (15.3-44.8); MCV 99.6 fL (80-100); MPV 6.7 fL (7.6-11.3); Platelets 309 thou/uL (152-406); RBC Red Blood Cell Count 4.38 M/uL (4.33-5.43)
[2023-11-17 11:35] LABS: Protime INR 0.92
[2023-11-17 12:01] LABS: Albumin 3.8 g/dL (3.4-5.0); Bilirubin Direct 0.2 mg/dL (0-0.2); Bilirubin Indirect, Calculated 0.5 mg/dL (0.2-0.8); Bilirubin Total 0.7 mg/dL (0.2-1.0); Potassium 3.6 mEq/L (3.5-5.1); Troponin High Sensitivity 6.5 pg/mL (<58.9)
--- NOTE | 2023-11-17 12:10 | RAD REPORT ---
EXAM DESCRIPTION: [facility] Single View11/17/2023 11:58 am CLINICAL HISTORY: Shortness of breath COMPARISON: November 12, 2023 FINDINGS: The lungs appear clear of acute infiltrate. The heart is normal size IMPRESSION: No acute abnormalities displayed
[2023-11-17 12:33] LABS: Barbiturates NEGATIVE (NEGATIVE); Benzodiazepines NEGATIVE (NEGATIVE); Cocaine NEGATIVE (NEGATIVE); METHAMPHETAM NEGATIVE (NEGATIVE); Methadone NEGATIVE (NEGATIVE); Opiates NEGATIVE (NEGATIVE); Phencyclidine NEGATIVE (NEGATIVE); THC Cannibis NEGATIVE (NEGATIVE)
--- NOTE | 2023-11-17 14:23 | ER ---
Nurse's Notes [facility] Name: Randy Briones Age: 53 yrs Sex: Male : 1970 Arrival Date: 11/17/2023 Time: 10:39 Bed 8 Private MD: Diagnosis: COPD/ Chronic obstructive pulmonary disease with (acute) exacerbation;Alcohol abuse counseling and surveillance of alcoholic;Alcoholic gastritis without bleeding Presentation: 11/17 10:53 Chief complaint: Patient states: Bad SOB for 2 days. Coronavirus screen: Client denies 1 travel out of the [place] in the last 14 days. cough unrelated to allergies, difficulty breathing, shortness of breath, Client presents with at least one sign or symptom that may indicate coronavirus-19. Standard/surgical mask placed on the client. Ebola Screen: Patient denies travel to an Ebola-affected area in the 21 days before illness onset. Initial Sepsis Screen: Does the patient meet any 2 criteria? RR > 20 per min. HR > 90 bpm. Yes Does the patient have a suspected source of infection? Yes: Productive cough/pneumonia. Risk Assessment: Do you want to hurt yourself or someone else? Patient reports no desire to harm self or others. Onset of symptoms was November 16, 2023. 10:53 Method Of Arrival: Ambulatory 1 10:53 Acuity: CANDACE 2 ll1 Triage Assessment: 10:54 General: Appears uncomfortable, ill, Behavior is calm, cooperative, appropriate for ll1 age. Pain: Complains of pain in all over Pain currently is 9 out of 10 on a pain scale. Quality of pain is described as aching. Respiratory: Reports shortness of breath cough that is labored breathing Onset: The symptoms/episode began/occurred yesterday, the patient has moderate shortness of breath. Historical: - Allergies: 10:46 Lisinopril; ll1 - PMHx: 10:46 home 02 3LNC PRN; COPD; Hypertension; Alcoholism; ll1 - PSHx: 10:46 Amputation of left index finger; ll1 - Immunization history:: Adult Immunizations up to date. - Social history:: Smoking status: Patient reports the use of cigarette tobacco products, smokes one pack cigarettes per day. Screenin:11 Clinical Yoder Withdrawal Assessment for Alcohol, revised (CIWA-Ar): tl4 Nausea/Vomitin - Intermittent nausea with dry heaves Headache: 0 - Not present Paroxysmal Sweats: 0 - No sweats visible Anxiety: 4 - Moderately anxious, guarded Agitation: 1 - Somewhat more than normal activity Tremor: 4 - Moderate when client's hands extended Auditory Disturbances: 0 - Not present Visual Disturbances: 0 - Not present Tactile Disturbances: 2 - Mild paresthesias Orientation and Clouding of Sensorium: 0 - Oriented and can do serial additions Total Score: 10 to 15: Mild Withdrawal. Assessment: 12:05 Reassessment: pt brought back to ER room. mb9 12:26 Reassessment: is going home. Alanna Briones [phone]. tl4 14:00 Reassessment: No changes from previously documented assessment. Patient and/or family mb9 updated on plan of care and expected duration. Pain level reassessed. Patient is alert, oriented x 3, equal unlabored respirations, skin warm/dry/pink. 15:12 Reassessment: No changes from previously documented assessment. Patient and/or family mb9 updated on plan of care and expected duration. Pain level reassessed. Patient is alert, oriented x 3, equal unlabored respirations, skin warm/dry/pink. Vital Signs: 10:53 BP 155 / 108; Pulse 136; Resp 28; Temp 97.5; Pulse Ox 94% on R/A; Pain 9/10; ll1 12:18 BP 158 / 99; Pulse 130; Resp 18; Pulse Ox 100% on R/A; mb9 13:28 BP 152 / 77; Pulse 101; Resp 18; Pulse Ox 100% on R/A; mb9 10:53 Pain Scale: Adult ll1 ED Course: 10:40 Patient arrived in ED. rg4 10:45 Jazzy Girard MD is Attending Physician. gb1 10:46 Arm band placed on. ll1 10:50 Patient placed in an internal wait recliner, in view of staff members, on oxygen. ll1 10:54 Triage completed. ll1 11:27 Rebeca Lizama, RN is Primary Nurse. iw 12:00 Chest Single View In Process Unspecified. EDMS 15:14 No provider procedures requiring assistance completed. IV discontinued. mb9 Administered Medications: 11:13 Drug: MethylPrednisoLONE IVP 125 mg IVP once Route: IVP; Site: left antecubital; iw 13:55 Follow up: Response: No adverse reaction tl4 11:39 Drug: DuoNeb Nebulize (3:1) (2.5 mg - 0.5 mg) 3 ml Nebulizer once Route: Nebulizer; iw 13:55 Follow up: Response: No adverse reaction tl4 11:39 Drug: Ondansetron IVP 4 mg IVP once; over 2 minutes Route: IVP; Site: left antecubital; iw 13:55 Follow up: Response: No adverse reaction; Nausea is decreased tl4 12:12 Drug: NS 0.9% IV 1000 ml IV at 1000 ml once Route: IV; Rate: 1000 ml; Site: left mb9 antecubital; 12:17 Drug: Ativan IVP 1 mg IVP once Route: IVP; Site: left antecubital; mb9 13:35 Follow up: Response: Anxiety decreased tl4 Outcome: 14:22 Discharge ordered by . boyd 15:14 Discharged to home via wheelchair, with family, mb9 15:14 Condition: stable 15:14 Discharge instructions given to patient, family, Instructed on discharge instructions, follow up and referral plans. Demonstrated understanding of instructions, follow-up care, medications, Prescriptions given X 1, 15:14 Patient left the ED. mb9 Signatures: Dispatcher [employer] EDMS Rebeca Lizama, Fiona Ba RN4 Estella Cano RN RN [email or web address] Jose Guadalupe, Bianca Murrieta RN RN mb9 Jazzy Girard MD MD gb1 Kapil Tsang tl4
--- NOTE | 2023-11-17 14:23 | EDPHYS ---
Physician Documentation [facility] Name: Randy Briones Age: 53 yrs Sex: Male : 1970 Arrival Date: 11/17/2023 Time: 10:39 Bed 8 Private MD: ED Physician Jazzy Girard HPI: 11/17 11:11 This 53 yrs old Male presents to ER via Ambulatory with complaints of gb1 Breathing Difficulty. 11:14 53-year-old male with history of COPD on 3 L of oxygen at home who comes for gb1 difficulty breathing and shortness of breath. Of note his is accompanying him to the emergency department today, and states he has been on a drinking vegetable daily. She states that he has been vomiting and having watery brown diarrhea more frequently. He has been more agitated as well. Shortness of breath is worse when he states he feels a pressure in his chest with the shortness of breath. He has a history of COPD, hypertension and alcoholism. His last drink was last evening. The states that he drinks a case of beer per day.. Historical: - Allergies: 10:46 Lisinopril; ll1 - PMHx: 10:46 home 02 3LNC PRN; COPD; Hypertension; Alcoholism; ll1 - PSHx: 10:46 Amputation of left index finger; ll1 - Immunization history:: Adult Immunizations up to date. - Social history:: Smoking status: Patient reports the use of cigarette tobacco products, smokes one pack cigarettes per day. ROS: 11:11 Constitutional: Negative for fever, chills, and weight loss, Eyes: Negative for injury, gb1 pain, redness, and discharge, ENT: Negative for injury, pain, and discharge, Neck: Negative for injury, pain, and swelling, Back: Negative for injury and pain, 11:11 All other systems are negative, 11:11 All other systems are negative, 11:11 All other systems are negative, 11:11 All other systems are negative, gb1 Exam: 11:11 Head/Face: Normocephalic, atraumatic. Eyes: Pupils equal round and reactive to light, gb1 extra-ocular motions intact. Lids and lashes normal. Conjunctiva and sclera are non-icteric and not injected. Cornea within normal limits. Periorbital areas with no swelling, redness, or edema. ENT: Nares patent. No nasal discharge, no septal abnormalities noted. Tympanic membranes are normal and external auditory canals are clear. Oropharynx with no redness, swelling, or masses, exudates, or evidence of obstruction, uvula midline. Mucous membranes moist. Neck: Trachea midline, no thyromegaly or masses palpated, and no cervical lymphadenopathy. Supple, full range of motion without nuchal rigidity, or vertebral point tenderness. No Meningismus. Abdomen/GI: Soft, non-tender, with normal bowel sounds. No distension or tympany. No guarding or rebound. No evidence of tenderness throughout. Back: No spinal tenderness. No costovertebral tenderness. Full range of motion. Skin: Warm, dry with normal turgor. Normal color with no rashes, no lesions, and no evidence of cellulitis. MS/ Extremity: Pulses equal, no cyanosis. Neurovascular intact. Full, normal range of motion. 11:11 Cardiovascular: Rate: tachycardic, 11:11 Respiratory: moderate respiratory distress is noted, Respirations: accessory muscle usage, intercostal retractions, shallow respirations, that is mild, Breath sounds: wheezing: that is moderate, is scattered, is heard diffusely, Vital Signs: 10:53 BP 155 / 108; Pulse 136; Resp 28; Temp 97.5; Pulse Ox 94% on R/A; Pain 9/10; ll1 12:18 BP 158 / 99; Pulse 130; Resp 18; Pulse Ox 100% on R/A; mb9 13:28 BP 152 / 77; Pulse 101; Resp 18; Pulse Ox 100% on R/A; mb9 10:53 Pain Scale: Adult ll1 MDM: 10:45 Patient medically screened. gb1 11:11 Differential diagnosis: CHF exacerbation, Chronic Obstructive Pulmonary Disease gb1 Myocardial Infarction pneumonia, pulmonary edema, reactive airway disease, Unstable Angina. 11:16 Data reviewed: vital signs, nurses notes, EKG, radiologic studies, plain films, gb1 Patient's EKG today shows sinus rhythm at 121 bpm, incomplete right bundle normal intervals and prolonged QTc with normal axis. He has some nonspecific ST-T wave changes diffusely. No acute ST elevation or reciprocal changes noted on this EKG. EKG was completed at 11:03 AM.. 11/17 11:04 Order name: UDS; Complete Time: 13:32 gb11/17 11:24 Order name: Basic Metabolic Panel; Complete Time: 12:07 EDMS 11/17 11:24 Order name: Liver (Hepatic) Function; Complete Time: 12:07 EDMS 11/17 11:24 Order name: Troponin High Sensitivity; Complete Time: 12:07 EDMS 11/17 11:24 Order name: NT PRO-BNP; Complete Time: 12:07 EDMS 11/17 11:24 Order name: Alcohol Serum/Plasma; Complete Time: 12:07 EDMS 11/17 11:24 Order name: CBC with Automated Diff; Complete Time: 12:07 EDMS 11/17 11:24 Order name: Protime (+INR); Complete Time: 12:07 EDMS 11/17 11:08 Order name: Chest Single View; Complete Time: 12:20 EDMS 11/17 10:46 Order name: EKG; Complete Time: 11:29 11/17 10:46 Order name: EKG - Nurse/Tech; Complete Time: 11:07 11/17 10:46 Order name: IV Saline Lock; Complete Time: 11:17 11/17 10:46 Order name: Labs collected and sent; Complete Time: 11:17 11/17 10:46 Order name: O2 Per Protocol; Complete Time: 11:17 11/17 10:46 Order name: O2 Sat Monitoring; Complete Time: 11:17 gb Administered Medications: 11:13 Drug: MethylPrednisoLONE IVP 125 mg IVP once Route: IVP; Site: left antecubital; iw 13:55 Follow up: Response: No adverse reaction tl4 11:39 Drug: DuoNeb Nebulize (3:1) (2.5 mg - 0.5 mg) 3 ml Nebulizer once Route: Nebulizer; iw 13:55 Follow up: Response: No adverse reaction tl4 11:39 Drug: Ondansetron IVP 4 mg IVP once; over 2 minutes Route: IVP; Site: left antecubital; iw 13:55 Follow up: Response: No adverse reaction; Nausea is decreased tl4 12:12 Drug: NS 0.9% IV 1000 ml IV at 1000 ml once Route: IV; Rate: 1000 ml; Site: left mb9 antecubital; 12:17 Drug: Ativan IVP 1 mg IVP once Route: IVP; Site: left antecubital; mb9 13:35 Follow up: Response: Anxiety decreased tl4 Disposition Summary: 11/17/23 14:22 Discharge Ordered Notes: Location: Home gb1 Problem: chronic gb1 Symptoms: have improved gb1 Condition: Stable gb1 Diagnosis - COPD/ Chronic obstructive pulmonary disease with (acute) exacerbation gb1 - Alcohol abuse counseling and surveillance of alcoholic gb1 - Alcoholic gastritis without bleeding gb1 Followup: gb1 - With: Private Physician - When: 48 Hours - Reason: Re-evaluation by your physician Discharge Instructions: - Discharge Summary Sheet gb1 - Finding Treatment for Addiction gb1 - Alcohol Use Disorder gb1 Forms: - Medication Reconciliation Form gb1 - Thank You Letter gb1 - Antibiotic Education gb1 - Prescription Opioid Use gb1 - Patient Portal Instructions gb1 - Leadership Thank You Letter gb1 Prescriptions: - chlordiazepoxide HCl 25 mg Oral capsule - take 1 capsule ORAL route 2 times per day as needed for anxiety; 15 capsule; gb1 Refills: 0, Product Selection Permitted Signatures: Dispatcher [employer] EDMS Rebeca Lizama RN RN iw Estella Cano RN RN ll1 Bianca Shi, RN RN mb9 Jazzy Girard MD MD gb1 Logdahl, Kapil tl4 Corrections: (The following items were deleted from the chart) 11:12 11:11 Unable to obtain ROS due to gb1 gb1 11:40 11:29 Chest Single View+RAD.RAD.BRZ ordered. EDMS EDMS 13:20 11:29 CBC+H.LAB.BRZ ordered. EDMS EDMS 13:20 11:29 PROTIME (+INR)+COAG.LAB.BRZ ordered. EDMS EDMS 13:28 11:29 BASIC METABOLIC PANEL+C.LAB.BRZ ordered. EDMS EDMS 13:28 11:29 HEPATIC FUNCTION+C.LAB.BRZ ordered. EDMS EDMS 13:28 11:29 PROBNP+C.LAB.BRZ ordered. EDMS EDMS 13:28 11:29 Troponin High Sensitivity+C.LAB.BRZ ordered. EDMS EDMS 13:28 11:29 ETHANOL+C.LAB.BRZ ordered. EDMS EDMS
[2023-11-17 16:18] VITALS: BP 152/77; TEMP 97.5; O2SAT 100
--- NOTE | 2023-11-18 17:37 | EKG ---
Test Date: 2023-11-17 Test Time: 11:03:46 Veterinary Practice Manager: MALA MEASUREMENT RESULTS: Intervals: Rate: 121 MS: 128 QRSD: 94 QT: 330 QTc: 468 [place]: P: 78 MS: 128 QRS: 93 T: 76 INTERPRETIVE STATEMENTS: Sinus tachycardia Rightward axis Incomplete right bundle branch block Nonspecific ST abnormality Abnormal ECG Compared to ECG 11/12/2023 21:20:59 Right-axis deviation now present Incomplete right bundle-branch block now present ST (T wave) deviation now present Electronically Signed On 11-18-23 17:34:18 [employer]MENT [employer] CUTTER MACHINE by Rosalino Albert
== END ==
LOC: ER 10:39
DX: J44.1 Chronic obstructive pulmonary disease with (acute) exacerbation (principal); K29.20 Alcoholic gastritis without bleeding; Z71.41 Alcohol abuse counseling and surveillance of alcoholic; F10.20 Alcohol dependence, uncomplicated; I10 Essential (primary) hypertension; F17.210 Nicotine dependence, cigarettes, uncomplicated; Z99.81 Dependence on supplemental oxygen; Z88.8 Allergy status to other drugs, medicaments and biological substances
CPT/HCPCS: 93005; 85025; 80048; 36415; 85610; 80076; 84484; 83880; 80307; 71045; 94640; 96375; 96374; 99285; 82077; J7613; J7644; J2930; J2405; J7030

== ENCOUNTER → 2023-11-18 | Emergency (ER) | payer OTHER ==
[~2023-11-18] MED LIST changes: -ALBUTEROL 2.5 MG/3 ML NEB SOL ONE; -IPRATROPIUM BROM 0.5MG/2.5ML ONE; +KETOROLAC 30 MG/ML INJ ONE; -METHYLPREDNISOLONE 125 MG INJ ONE; -ONDANSETRON 4 MG/2 ML VIAL ONE
--- OUTSIDE RECORDS SUMMARY | 2023-11-18 18:24 | XMS REPORT | Continuity of Care Document ---
Author Name Unknown Address [address] [facility] [address] thconnect Address [address] [facility] [address] [place] [address] Care Team Providers Care Schedule Maker Name Role Phone DARIEN LOBO Attending Clinician Unavailable [facility] Attending [facility] n Unavailable Payers Payer Name Policy Type Policy Number Effective Date Expirati on Date Source GLORIA GONSALVES [facility]: [employer] O [employer] 94 [place] 9 [id number] 2023 00:00:00 Encounters Start Date/Time End Date/Time Encounter Type Admission Type Attending Clinicians Care Facility Care Department Encounter ID Source 2023-07-15 00:00:00 2023-07-15 00:00:00 Outpatient DARIEN LOBO [id number] Mariam Alcantara 2023-06-16 11:30:00 2023-06-16 11:30:00 Outpatient DARIEN LOBO [id number] Mariam Alcantara 2023-05-18 00:00:00 2023-05-18 00:00:00 MARIAM Guan [id number] Mariam Alcantara
[2023-11-18 19:04] LABS: Absolute Lymphocytes (CBC) 1.6 K/uL (0.7-4.9); Hematocrit 40.2 % (39.6-49.0); Lymphocytes % 12.3 % (15.3-44.8); MCV 100.6 fL (80-100); MPV 7.1 fL (7.6-11.3); Platelets 256 thou/uL (152-406)
[2023-11-18 19:34] LABS: Albumin 3.6 g/dL (3.4-5.0); Bilirubin Direct 0.2 mg/dL (0-0.2); Bilirubin Indirect, Calculated 0.7 mg/dL (0.2-0.8); Bilirubin Total 0.9 mg/dL (0.2-1.0); Potassium 3.4 mEq/L (3.5-5.1); Protein, Total 7.6 g/dL (6.4-8.2); Troponin High Sensitivity 8.5 pg/mL (<58.9)
--- NOTE | 2023-11-18 19:44 | ER ---
Nurse's Notes [facility] Name: Randy Briones Age: 53 yrs Sex: Male : 1970 Arrival Date: 11/18/2023 Time: 18:19 Bed 8 Private MD: Diagnosis: Withdrawal, hyponatremia, dehydration Presentation: 11/18 18:26 Chief complaint: Chief complaint: Patient states: PATIENT STATES HAS BLURRY VISION, db HANDS LOCKING UP AND SHARP PAIN IN NECK. STARTED THIS AM. Coronavirus screen: Vaccine status: Patient reports receiving the 2nd dose of the covid vaccine. Client denies travel out of the [place] in the last 14 days. At this time, the client does not indicate any symptoms associated with coronavirus-19. Ebola Screen: Patient negative for fever greater than or equal to 101.5 degrees Fahrenheit, and additional compatible Ebola Virus Disease symptoms Patient denies exposure to infectious person. Patient denies travel to an Ebola-affected area in the 21 days before illness onset. No symptoms or risks identified at this time. 18:26 Method Of Arrival: Ambulatory db 18:26 Acuity: CANDACE 2 db 18:27 Initial Sepsis Screen: Does the patient meet any 2 criteria? No. Patient's initial db sepsis screen is negative. Does the patient have a suspected source of infection? No. Patient's initial sepsis screen is negative. Risk Assessment: Do you want to hurt yourself or someone else? Patient reports no desire to harm self or others. Onset of symptoms was November 18, 2023. Triage Assessment: 18:27 General: Appears distressed, uncomfortable, Behavior is cooperative, anxious. Pain: db Complains of pain in right hand and left hand. Pain: Complains of pain in neck. Neuro: Level of Consciousness is awake, alert, obeys commands. Respiratory: Airway is patent Respiratory effort is even, unlabored, Respiratory pattern is regular, symmetrical. Historical: - Allergies: 18:27 Lisinopril; db - PMHx: 18:27 Alcoholism; home 02 3LNC PRN; Hypertension; COPD; db - PSHx: 18:27 Amputation of left index finger; db - Immunization history:: Adult Immunizations unknown, Client reports receiving the 2nd dose of the Covid vaccine. - Social history:: Smoking status: Patient reports the use of cigarette tobacco products, smokes two packs cigarettes per day. Screenin:00 [facility] ED Fall Risk Assessment (Adult) History of falling in the last 3 months, jw7 including since admission No falls in past 3 months (0 pts) Score/Fall Risk Level 0 - 2 = Low Risk Oriented to surroundings, Maintained a safe environment. Abuse screen: Denies threats or abuse. Denies injuries from another. Nutritional screening: No deficits noted. Tuberculosis screening: No symptoms or risk factors identified. Assessment: 19:20 Reassessment: Patient appears in no apparent distress at this time. Patient and/or jb4 family updated on plan of care and expected duration. Pain level reassessed. Patient is alert, oriented x 3, equal unlabored respirations, skin warm/dry/pink. 20:00 General: Discharge pending completion of IV Fluids. jw7 20:16 Reassessment: Patient appears in no apparent distress at this time. Patient and/or jb4 family updated on plan of care and expected duration. Pain level reassessed. Patient is alert, oriented x 3, equal unlabored respirations, skin warm/dry/pink. 21:26 Reassessment: Patient appears in no apparent distress at this time. Patient and/or jb4 family updated on plan of care and expected duration. Pain level reassessed. Patient is alert, oriented x 3, equal unlabored respirations, skin warm/dry/pink. Patient states feeling better. Vital Signs: 18:27 BP 170 / 95; Pulse 118; Resp 24; Temp 98.1; Pulse Ox 93% ; Weight 79.38 kg; Height 5 db ft. 4 in. ; Pain 9/10; 19:30 BP 154 / 84; Pulse 84; Resp 15 S; Pulse Ox 97% on R/A; jw7 20:16 BP 147 / 94; Pulse 84; Resp 16; Pulse Ox 95% on R/A; jb4 21:26 BP 140 / 95; Pulse 92; Resp 16; Pulse Ox 96% on R/A; jb4 18:27 Body Mass Index 30.04 (79.38 kg, 162.56 cm) db 18:27 Pain Scale: Adult db ED Course: 18:22 Patient arrived in ED. im 18:27 Triage completed. db 18:27 Arm band placed on right wrist. Patient placed in an exam room. db 18:38 Imani Frances MD is Attending Physician. sp3 19:00 Patient has correct armband on for positive identification. Bed in low position. Call jw7 light in reach. 19:20 Inserted saline lock: 20 gauge in right antecubital area, using aseptic technique. jw7 20:45 No provider procedures requiring assistance completed. jw7 21:26 IV discontinued, intact, bleeding controlled, No redness/swelling at site. Pressure jb4 dressing applied. Administered Medications: 19:24 Drug: Ativan IVP 1 mg IVP once Route: IVP; Site: right antecubital; jb4 21:26 Follow up: Response: No adverse reaction jb4 20:34 Drug: Ketorolac IVP 30 mg IVP once Route: IVP; Site: right antecubital; jb4 21:26 Follow up: Response: No adverse reaction; Marked relief of symptoms jb4 20:34 Drug: Ativan IVP 1 mg IVP once Route: IVP; Site: right antecubital; jb4 21:26 Follow up: Response: No adverse reaction; Marked relief of symptoms jb4 20:35 Drug: NS 0.9% IV 1000 ml IV at 1 bolus Per protocol; 1000 mL bolus Route: IV; Rate: 1 jb4 bolus; Site: right antecubital; 21:26 Follow up: Response: No adverse reaction; IV Status: Discontinued per pt's request.; IV jb4 Intake: 500ml Medication: 20:45 VIS not applicable for this client. jw7 Intake: 21:26 IV: 500ml; Total: 500ml. jb4 Outcome: 19:44 Discharge ordered by . sp3 21:26 Discharged to home ambulatory, jb4 21:26 Condition: stable 21:26 Discharge instructions given to patient, Instructed on discharge instructions, follow up and referral plans. Demonstrated understanding of instructions, follow-up care, 21:27 Patient left the ED. jb4 Signatures: Chivo Gill RN RN jb4 Imani Frances MD MD sp3 Kaila Mckeon RN RN jw7 Anna Lamb RN RN db Mendoza, Itzel im
--- NOTE | 2023-11-18 19:44 | EDPHYS ---
Physician Documentation [facility] Name: Randy Briones Age: 53 yrs Sex: Male : 1970 Arrival Date: 11/18/2023 Time: 18:19 Bed 8 Private MD: ED Physician Imani Frances HPI: 11/18 18:57 This 53 yrs old Male presents to ER via Ambulatory with complaints of Blurred Vision, sp3 Pain All Over - Hand,legs,neck. 18:57 53-year-old male with a history of alcoholism, hypertension, COPD well-known to the ED sp3 now presents to the ED with chief complaint "pain all over", anxiety and high blood pressure. Patient states that his doctor's been giving him a "medicine that keeps him from drinking" he has not had any alcohol for 4 days. He states at work today he felt like his blood pressure was high and he was anxious. He denies chest pain, back pain, changes in his urine, abdominal pain, nausea, vomiting, diarrhea, headache, or any other signs or symptoms on ROS at this time.. Historical: - Allergies: 18:27 Lisinopril; db - PMHx: 18:27 Alcoholism; home 02 3LNC PRN; Hypertension; COPD; db - PSHx: 18:27 Amputation of left index finger; db - Immunization history:: Adult Immunizations unknown, Client reports receiving the 2nd dose of the Covid vaccine. - Social history:: Smoking status: Patient reports the use of cigarette tobacco products, smokes two packs cigarettes per day. ROS: 18:58 Constitutional: Negative for fever, chills, and weight loss, Eyes: Negative for injury, sp3 pain, redness, and discharge, ENT: Negative for injury, pain, and discharge, Neck: Negative for injury, pain, and swelling, Respiratory: Negative for shortness of breath, cough, wheezing, and pleuritic chest pain, Back: Negative for injury and pain, MS/Extremity: Negative for injury and deformity, Skin: Negative for injury, rash, and discoloration, Psych: Negative for depression, anxiety, suicide ideation, homicidal ideation, and hallucinations, Allergy/Immunology: Negative for hives, rash, and allergies, Endocrine: Negative for neck swelling, polydipsia, polyuria, polyphagia, and marked weight changes, Hematologic/Lymphatic: Negative for swollen nodes, abnormal bleeding, and unusual bruising, 18:58 All other systems are negative, Exam: 18:58 Constitutional: This is a well developed, well nourished patient who is awake, alert, sp3 and in no acute distress. Head/Face: Normocephalic, atraumatic. Eyes: Pupils equal round and reactive to light, extra-ocular motions intact. Lids and lashes normal. Conjunctiva and sclera are non-icteric and not injected. Cornea within normal limits. Periorbital areas with no swelling, redness, or edema. ENT: Nares patent. No nasal discharge, no septal abnormalities noted. External auditory canals are clear. Oropharynx with no redness, swelling, or masses, exudates, or evidence of obstruction, uvula midline. Mucous membranes moist. Neck: Trachea midline, no thyromegaly or masses palpated, and no cervical lymphadenopathy. Supple, full range of motion without nuchal rigidity, or vertebral point tenderness. No Meningismus. Chest/axilla: Normal chest wall appearance and motion. Nontender with no deformity. No lesions are appreciated. Respiratory: Lungs have equal breath sounds bilaterally, clear to auscultation and percussion. No rales, rhonchi or wheezes noted. No increased work of breathing, no retractions or nasal flaring. Abdomen/GI: Soft, non-tender, with normal bowel sounds. No distension or tympany. No guarding or rebound. No evidence of tenderness throughout. Back: No spinal tenderness. No costovertebral tenderness. Full range of motion. Skin: Warm, dry with normal turgor. Normal color with no rashes, no lesions, and no evidence of cellulitis. MS/ Extremity: Pulses equal, no cyanosis. Neurovascular intact. Full, normal range of motion. Neuro: Awake and alert, GCS 15, oriented to person, place, time, and situation. Cranial nerves II-XII grossly intact. Motor strength 5/5 in all extremities. Sensory grossly intact. Cerebellar exam normal. Normal gait. 18:58 Cardiovascular: Rate: tachycardic, 18:58 Psych: Patient is anxious. 19:50 ECG was reviewed by the Attending Physician. EKG demonstrates normal sinus rhythm at 94 sp3 bpm with QTc of 472 normal axis, normal QRS with mild high voltage and nonspecific diffuse ST's ST changes without evidence of acute ischemia. Vital Signs: 18:27 BP 170 / 95; Pulse 118; Resp 24; Temp 98.1; Pulse Ox 93% ; Weight 79.38 kg; Height 5 db ft. 4 in. ; Pain 9/10; 19:30 BP 154 / 84; Pulse 84; Resp 15 S; Pulse Ox 97% on R/A; jw7 20:16 BP 147 / 94; Pulse 84; Resp 16; Pulse Ox 95% on R/A; jb4 21:26 BP 140 / 95; Pulse 92; Resp 16; Pulse Ox 96% on R/A; jb4 18:27 Body Mass Index 30.04 (79.38 kg, 162.56 cm) db 18:27 Pain Scale: Adult db MDM: 18:48 Patient medically screened. sp3 19:42 Data reviewed: vital signs, nurses notes, lab test result(s), EKG. ED course: sp3 53-year-old male comes in for chronic pain, anxiety and probable alcohol withdrawal. After Ativan 1 mg, heart rate is now in the 80s and blood pressure is 148/86. Sodium is at 127. I will administer normal saline 1 L, administer ketorolac 30 mg IV, and 1 additional milligram of Ativan. Patient is not feeling much better and we will discharge him home after these interventions are complete to PCP follow-up. Patient will also get p.o. challenge for additional sodium. No admission criteria noted. Troponin is negative.. 11/18 18:47 Order name: Basic Metabolic Panel; Complete [facility]: [facility]:39 [facility] 18:47 Order name: CBC with Diff [facility] 11/18 18:47 Order name: LFT's; Complete Time: 19:39 [facility] 11/18 18:47 Order name: Troponin HS; Complete Time: 19:39 [facility] 11/18 18:47 Order name: EKG; Complete Time: 18:48 [facility] 11/18 18:47 Order name: Cardiac monitoring; Complete Time: 19:02 [facility] 11/18 18:47 Order name: EKG - Nurse/Tech; Complete Time: 19:02 [facility] 11/18 18:47 Order name: IV Saline Lock; Complete Time: 19:24 [facility] 11/18 18:47 Order name: Labs collected and sent; Complete Time: 19:02 [facility] 11/18 18:47 Order name: O2 Per Protocol; Complete Time: 19: sp3 11/18 18:47 Order name: O2 Sat Monitoring; Complete Time: 19: sp3 11/18 19:43 Order name: PO challenge; Complete Time: 20:34 sp3 11/18 19:43 Order name: Recheck Vital Signs; Complete Time: 20:21 sp3 Administered Medications: 19:24 Drug: Ativan IVP 1 mg IVP once Route: IVP; Site: right antecubital; jb4 21:26 Follow up: Response: No adverse reaction jb4 20:34 Drug: Ketorolac IVP 30 mg IVP once Route: IVP; Site: right antecubital; jb4 21:26 Follow up: Response: No adverse reaction; Marked relief of symptoms jb4 20:34 Drug: Ativan IVP 1 mg IVP once Route: IVP; Site: right antecubital; jb4 21:26 Follow up: Response: No adverse reaction; Marked relief of symptoms jb4 20:35 Drug: NS 0.9% IV 1000 ml IV at 1 bolus Per protocol; 1000 mL bolus Route: IV; Rate: 1 jb4 bolus; Site: right antecubital; 21:26 Follow up: Response: No adverse reaction; IV Status: Discontinued per pt's request.; IV jb4 Intake: 500ml Disposition Summary: 11/18/23 19:44 Discharge Ordered Notes: Location: Home sp3 Condition: Stable sp3 Diagnosis - Withdrawal, hyponatremia, dehydration sp3 Followup: sp3 - With: Private Physician - When: Upon discharge from the Emergency Department - Reason: Continuance of care Discharge Instructions: - Discharge Summary Sheet sp3 - Alcohol Withdrawal Syndrome, [id number] sp3 - Hyponatremia, [id number] sp3 Forms: - Medication Reconciliation Form sp3 - Thank You Letter sp3 - Antibiotic Education sp3 - Prescription Opioid Use sp3 - Patient Portal Instructions sp3 - Leadership Thank You Letter sp3 Signatures: Dispatcher [employer] Chivo De Los Santos, RN RN jb4 Imani Frances MD MD sp3 Anna Lamb RN RN db
[2023-11-18 21:32] LABS: Blood Morphology Comment NOT SEEN (NOT SEEN); Platelet Estimate ADEQ
[2023-11-19 01:16] VITALS: TEMP 98.1
[2023-11-19 01:36] VITALS: BP 140/95; O2SAT 96
== END ==
LOC: ER 18:19
DX: F10.239 Alcohol dependence with withdrawal, unspecified (principal); E87.1 Hypo-osmolality and hyponatremia; E86.0 Dehydration; J44.9 Chronic obstructive pulmonary disease, unspecified; Z99.81 Dependence on supplemental oxygen; I10 Essential (primary) hypertension; F17.210 Nicotine dependence, cigarettes, uncomplicated; Z88.8 Allergy status to other drugs, medicaments and biological substances
CPT/HCPCS: 85025; 80048; 36415; 80076; 84484; J7030; 93005

== ENCOUNTER 2023-11-29 13:15 | Inpatient (IN) | payer OTHER ==
--- OUTSIDE RECORDS SUMMARY | 2023-11-29 13:19 | XMS REPORT | Continuity of Care Document ---
Author Name Unknown Address [address] [facility] [address] [place] [address] [facility] Address [address] [facility] 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 Role Phone Adrianna Michaels Primary Care Physician [phone] CHRISTY HOLLIDAY Attending Clinician Unavailable Christy Holliday MD Attending Clinician [phone] JAC NAVARRO Attending Clinician Unavailable Jac Navarro MD Attending Clinician [phone] DARIEN LOBO Attending Clinician Unavailable MARIA ELENA CHAN MEDICAL Attending George akins Unavailable MELINDA MACIEL Attending Clinician Unavailable Melinda Maciel DO Attending Clinician [phone] DENISE SUNG Attending Clinician Unavailable KARLEY ADAMS Attending Clinician Unavailable JAC NAVARRO Admitting Clinician Unavailable MELINDA MACIEL Admitting Clinician Unavailable CHRISTY HOLLIDAY Admitting Clinician Unavailable Payers Payer Name Policy Type Policy Number Effective Date Expirati on Date Source GLORIA MONTOYA SILVER 2: [employer] 94 [place] 9 [id number] 2023 00:00:00 Problems Condition Name Condition Details Condition Category Status Onset Date Resolution Date Last Treatment Date Treating Clinician Comments Source Acute exacerbati on of chronic obstructiv e pulmonary disease (COPD) Acute exacerbati on of chronic obstructiv e pulmonary disease (COPD) Disease Active 03-24 00:00: 00 [facility] Obesity (BMI 30-39.9) Obesity (BMI 30-39.9) Disease Active 03-24 00:00: 00 [facility] Allergies, Adverse Reactions, Alerts Allergy Name Allergy Type Status Severity Reaction(s) Onset Date Inactive Date Treating Clinician Comments Source Lisinopr il Propensi ty to adverse reaction s Active Anaphylaxis 03-24 00:00: 00 [facility] LISINOPR [place] DRUG INGREDI Active Anaphylaxis 03-24 00:00: 00 [facility] Social History Social Habit Start Date Stop Date Quantity Comments Source History of tobacco use Smokes tobacco daily [facility] of Social function 2022-10-17 00:00:00 2022-10-17 00:00:00 [facility] Alcohol intake 2022-10-17 00:00:00 2022-10-17 00:00:00 4.29 /d [facility] Exposure to SARS-CoV-2 (event) 2022-10-04 00:00:00 2022-10-14 10:25:00 Not sure [facility] Tobacco use and exposure 2018-03-24 00:00:00 2018-03-24 00:00:00 User of smokeless tobacco [facility] Tobacco Comment 2018-03-24 00:00:00 2018-03-24 00:00:00 trying to quit [facility] Sex Assigned At 1970 00:00:00 1970 00:00:00 [facility] Smoking Status Start Date Stop Date Source Smokes tobacco daily 2018-03-24 00:00:00 [facility] Medications Ordered Medication Name Filled Medication Name Start Date Stop Date Current Medication? Ordering Clinician Indication Dosage Frequency Signature (SIG) Comments Components Source methylpredn isolone sod succ (SOLU-MEDRO L) injection 125 mg 2022-11 08:45: 00 10-27 20:44 :00 Yes 125mg 125 mg, Slow IV Push, ONCE, 1 dose, On Thu10/27/23 at 0245, STAT [facility] ipratropium -albuteroL (DUONEB) 0.5 mg-3 mg(2.5 mg base)/3 mL nebulizer solution 3 mL 2022-11 08:45: 00 10-27 20:44 :00 Yes 3mL 3 mL, Inhalation , ONCE NOW, 1 dose, On Thu10/27/23 at 0245, LAURYN [facility] diazePAM (VALIUM) tablet 10 mg 2022-11 07:45: 00 10-27 19:44 :00 Yes 10mg 10 mg, Oral, ONCE, 1 dose, On Thu10/27/23 at 0145, LAURYN [facility] levoFLOXaci n (LEVAQUIN) tablet 500 mg 2022-11 07:45: 00 10-27 19:44 :00 Yes 500mg 500 mg, Oral, ONCE, 1 dose, On Thu10/27/23 at 0145, LAURYN
Re ason for Anti-Infec tive: Empiric Non-Surgic al Prophylaxi s
Durat ion of therapy: Once (ED) [facility] iopamidol (ISOVUE 370-500 mL) injection 70 mL 2021-11 18:30: 00 10-14 18:30 :00 No [id number] 70mL 70 mL, Intravenou s, ONCE, 1 dose, On Thu10/14/22 at 1230, Routine [facility] methylpredn isolone sod succ (SOLU-MEDRO L) injection 125 mg 2021-11 18:00: 00 Yes 125mg 125 mg, Intravenou s, Q6H, First dose on Thu10/14/22 at 1200, Until Discontinu ed, Routine [facility] furosemide (LASIX) injection 40 mg 2021-11 17:45: 00 10-14 16:39 :00 No 40mg 40 mg, IV Push, ONCE, 1 dose, On Thu10/14/22 at 1145, LAURYN [facility] ipratropium -albuteroL (DUONEB) 0.5 mg-3 mg(2.5 mg base)/3 mL nebulizer solution 3 mL 2021-11 17:30: 00 10-14 16:41 :00 No 3mL 3 mL, Inhalation , ONCE, 1 dose, On Thu10/14/22 at 1130, Routine [facility] FENTanyl PF (SUBLIMAZE (PF)) injection 50 mcg 2021-11 16:45: 00 10-14 16:39 :00 No 50ug 50 mcg, Slow IV Push, ONCE, 1 dose, On Thu10/14/22 at 1045, Routine [facility] levoFLOXaci n 750 mg tablet 2021-11 00:00: 00 Yes [id number] 750mg Take 1 tablet by mouth every 24 (twenty-fo ur) hours. [facility] levoFLOXaci n 750 mg tablet 2021-11 00:00: 00 Yes [id number] 750mg Take 1 tablet by mouth every 24 (twenty-fo ur) hours. [facility] levoFLOXaci n 750 mg tablet 2021-11 00:00: 00 Yes [id number] 750mg Take 1 tablet by mouth every 24 (twenty-fo ur) hours. [facility] HYDROcodone -acetaminop hen (NORCO) 10-325 mg tablet 1 tablet 5-04 12:15: 00 03-12 11:21 :00 No 1{tbl} 1 tablet, Oral, ONCE, 1 dose, On Thu03/12/22 at 0715, Routine [facility] HYDROcodone -acetaminop hen 10-325 mg tablet 5-04 00:00: 00 03-20 04:59 :00 No [id number] 1{tbl} Take 1 tablet by mouth every 6 (six) hours as needed for Pain (scale 7-10) for up to 7 days. Indication s: acute pain [facility] ipratropium -albuteroL (DUONEB) 0.5 mg-3 mg(2.5 mg base)/3 mL nebulizer solution 3 mL 02-20 13:00: 00 Yes 3mL 3 mL, Inhalation , QID, First dose on Thu02/20/22 at 0800, Until Discontinu ed, Routine [facility] methylPREDN ISolone sod succ (SOLU-MEDRO L (PF)) injection 40 mg 02-20 11:45: 00 02-20 10:43 :00 No 40mg 40 mg, Intravenou s, ONCE, 1 dose, On Kym 02/20/22 at 0645, STAT [facility] foLIC acid (FOLATE) tablet 1 mg 02-20 11:45: 00 02-20 10:41 :00 No 1mg 1 mg, Oral, ONCE, 1 dose, On Kym 02/20/22 at 0645, LAURYN [facility] thiamine (VITAMIN B1) injection 100 mg 02-20 11:45: 00 02-20 10:43 :00 No 100mg 100 mg, Intravenou s, ONCE, 1 dose, On Kym 02/20/22 at 0645, LAURYN [facility] LORazepam (ATIVAN) injection 2 mg 02-20 11:45: 00 02-20 10:42 :00 No 2mg 2 mg, Slow IV Push, ONCE, 1 dose, On Kym 02/20/22 at 0645, STAT [facility] ipratropium -albuteroL (DUONEB) 0.5 mg-3 mg(2.5 mg base)/3 mL nebulizer solution 3 mL 02-20 10:30: 00 02-20 09:34 :00 No 3mL 3 mL, Inhalation , ONCE, 1 dose, On Kym 02/20/22 at 0530, Routine [facility] budesonide- formoteroL 160-4.5 mcg/actuati on inhaler 02-20 00:00: 00 Yes [id number] 2{puff} Inhale 2 Puffs 2 (two) times daily. [facility] triamterene -hydrochlor othiazid 37.5-25 mg tablet 02-20 00:00: 00 Yes [id number] 1{tbl} Take 1 tablet by mouth daily. [facility] chlordiazeP OXIDE 25 mg capsule 02-20 00:00: 00 Yes [id number] 25mg Take 1 capsule by mouth every 6 (six) hours as needed for Anxiety, Agitation, Heart Rate => 100 or Detox. [facility] predniSONE 10 mg tablet 02-20 00:00: 00 Yes [id number] TAKE ONE TABLET BY MOUTH DAILY [facility] albuterol 90 mcg/actuati on inhaler 02-20 00:00: 00 Yes [id number] 2{puff} Inhale 2 Puffs every 4 (four) hours as needed for Wheezing or Shortness of Breath. [facility] albuterol 2.5 mg /3 mL (0.083 %) nebulizer solution 02-20 00:00: 00 Yes [id number] 2.5mg Inhale 3 mL every 4 (four) hours. May also nebulize one extra every 6 hours. [facility] budesonide- formoteroL 160-4.5 mcg/actuati on inhaler 02-20 00:00: 00 Yes [id number] 2{puff} Inhale 2 Puffs 2 (two) times daily. [facility] triamterene -hydrochlor othiazid 37.5-25 mg tablet 02-20 00:00: 00 Yes [id number] 1{tbl} Take 1 tablet by mouth daily. [facility] chlordiazeP OXIDE 25 mg capsule 02-20 00:00: 00 Yes [id number] 25mg Take 1 capsule by mouth every 6 (six) hours as needed for Anxiety, Agitation, Heart Rate => 100 or Detox. [facility] predniSONE 10 mg tablet 02-20 00:00: 00 Yes [id number] TAKE ONE TABLET BY MOUTH DAILY [facility] albuterol 90 mcg/actuati on inhaler 02-20 00:00: 00 Yes [id number] 2{puff} Inhale 2 Puffs every 4 (four) hours as needed for Wheezing or Shortness of Breath. [facility] albuterol 2.5 mg /3 mL (0.083 %) nebulizer solution 02-20 00:00: 00 Yes [id number] 2.5mg Inhale 3 mL every 4 (four) hours. May also nebulize one extra every 6 hours. [facility] budesonide- formoteroL 160-4.5 mcg/actuati on inhaler 02-20 00:00: 00 Yes [id number] 2{puff} Inhale 2 Puffs 2 (two) times daily. [facility] triamterene -hydrochlor othiazid 37.5-25 mg tablet 02-20 00:00: 00 Yes [id number] 1{tbl} Take 1 tablet by mouth daily. [facility] chlordiazeP OXIDE 25 mg capsule 02-20 00:00: 00 Yes [id number] 25mg Take 1 capsule by mouth every 6 (six) hours as needed for Anxiety, Agitation, Heart Rate => 100 or Detox. [facility] predniSONE 10 mg tablet 02-20 00:00: 00 Yes [id number] TAKE ONE TABLET BY MOUTH DAILY [facility] albuterol 90 mcg/actuati on inhaler 02-20 00:00: 00 Yes [id number] 2{puff} Inhale 2 Puffs every 4 (four) hours as needed for Wheezing or Shortness of Breath. [facility] albuterol 2.5 mg /3 mL (0.083 %) nebulizer solution 02-20 00:00: 00 Yes [id number] 2.5mg Inhale 3 mL every 4 (four) hours. May also nebulize one extra every 6 hours. [facility] budesonide- formoteroL 160-4.5 mcg/actuati on inhaler 02-20 00:00: 00 Yes [id number] 2{puff} Inhale 2 Puffs 2 (two) times daily. [facility] triamterene -hydrochlor othiazid 37.5-25 mg tablet 02-20 00:00: 00 Yes [id number] 1{tbl} Take 1 tablet by mouth daily. [facility] chlordiazeP OXIDE 25 mg capsule 02-20 00:00: 00 Yes [id number] 25mg Take 1 capsule by mouth every 6 (six) hours as needed for Anxiety, Agitation, Heart Rate => 100 or Detox. [facility] predniSONE 10 mg tablet 02-20 00:00: 00 Yes [id number] TAKE ONE TABLET BY MOUTH DAILY [facility] albuterol 90 mcg/actuati on inhaler 02-20 00:00: 00 Yes [id number] 2{puff} Inhale 2 Puffs every 4 (four) hours as needed for Wheezing or Shortness of Breath. [facility] albuterol 2.5 mg /3 mL (0.083 %) nebulizer solution 02-20 00:00: 00 Yes [id number] 2.5mg Inhale 3 mL every 4 (four) hours. May also nebulize one extra every 6 hours. [facility] budesonide- formoteroL 160-4.5 mcg/actuati on inhaler 02-20 00:00: 00 Yes [id number] 2{puff} Inhale 2 Puffs 2 (two) times daily. [facility] triamterene -hydrochlor othiazid 37.5-25 mg tablet 02-20 00:00: 00 Yes [id number] 1{tbl} Take 1 tablet by mouth daily. [facility] chlordiazeP OXIDE 25 mg capsule 02-20 00:00: 00 Yes [id number] 25mg Take 1 capsule by mouth every 6 (six) hours as needed for Anxiety, Agitation, Heart Rate => 100 or Detox. [facility] predniSONE 10 mg tablet 02-20 00:00: 00 Yes [id number] TAKE ONE TABLET BY MOUTH DAILY [facility] albuterol 90 mcg/actuati on inhaler 02-20 00:00: 00 Yes [id number] 2{puff} Inhale 2 Puffs every 4 (four) hours as needed for Wheezing or Shortness of Breath. [facility] albuterol 2.5 mg /3 mL (0.083 %) nebulizer solution 02-20 00:00: 00 Yes [id number] 2.5mg Inhale 3 mL every 4 (four) hours. May also nebulize one extra every 6 hours. [facility] 07-16 14:02: 20 Yes 2.5mg Inhale 2.5 mg every 6 (six) hours as needed for Wheezing or Shortness of Breath. [facility] 07-16 14:02: 20 Yes 2.5mg Inhale 2.5 mg every 6 (six) hours as needed for Wheezing or Shortness of Breath. [facility] albuterol 5 mg/mL nebulizer solution 07-16 14:02: 20 Yes 2.5mg Inhale 2.5 mg every 6 (six) hours as needed for Wheezing or Shortness of Breath. [facility] albuterol 5 mg/mL nebulizer solution 07-16 14:02: 20 Yes 2.5mg Inhale 2.5 mg every 6 (six) hours as needed for Wheezing or Shortness of Breath. [facility] albuterol 5 mg/mL nebulizer solution 07-16 14:02: 20 Yes 2.5mg Inhale 2.5 mg every 6 (six) hours as needed for Wheezing or Shortness of Breath. [facility] budesonide- formoterol 160-4.5 mcg/actuati on inhaler 07-16 00:00: 00 Yes 2{puff} Inhale 2 Puffs 2 (two) times daily. [facility] albuterol 2.5 mg /3 mL (0.083 %) nebulizer solution 07-16 00:00: 00 Yes 2.5mg Inhale 3 mL every 4 (four) hours as needed for Wheezing or Shortness of Breath. [facility] budesonide- formoterol 160-4.5 mcg/actuati on inhaler 07-16 00:00: 00 Yes 2{puff} Inhale 2 Puffs 2 (two) times daily. [facility] /3 mL (0.083 %) nebulizer solution 07-16 00:00: 00 Yes 2.5mg Inhale 3 mL every 4 (four) hours as needed for Wheezing or Shortness of Breath. [facility] budesonide- formoterol 160-4.5 mcg/actuati on inhaler 07-16 00:00: 00 Yes 2{puff} Inhale 2 Puffs 2 (two) times daily. [facility] albuterol 2.5 mg /3 mL (0.083 %) nebulizer solution 07-16 00:00: 00 Yes 2.5mg Inhale 3 mL every 4 (four) hours as needed for Wheezing or Shortness of Breath. [facility] budesonide- formoterol 160-4.5 mcg/actuati on inhaler 07-16 00:00: 00 Yes 2{puff} Inhale 2 Puffs 2 (two) times daily. [facility] albuterol 2.5 mg /3 mL (0.083 %) nebulizer solution 07-16 00:00: 00 Yes 2.5mg Inhale 3 mL every 4 (four) hours as needed for Wheezing or Shortness of Breath. [facility] budesonide- formoterol 160-4.5 mcg/actuati on inhaler 07-16 00:00: 00 Yes 2{puff} Inhale 2 Puffs 2 (two) times daily. [facility] albuterol 2.5 mg /3 mL (0.083 %) nebulizer solution 07-16 00:00: 00 Yes 2.5mg Inhale 3 mL every 4 (four) hours as needed for Wheezing or Shortness of Breath. [facility] triamterene -hydrochlor othiazide 37.5-25 mg per capsule 03-26 16:32: 14 Yes 1{capsu le} Take 1 capsule by mouth every morning. [facility] amLODIPine 10 mg tablet 03-26 16:32: 14 Yes 10mg Take 10 mg by mouth at bedtime. [facility] gabapentin 100 mg capsule 03-26 16:32: 14 Yes 100mg Take 100 mg by mouth 2 (two) times daily as needed ([facility] pain). [facility] foLIC acid 1 mg tablet 03-26 16:32: 14 Yes 1mg Take 1 mg by mouth daily. [facility] triamterene -hydrochlor othiazide 37.5-25 mg per capsule 03-26 16:32: 14 Yes 1{capsu le} Take 1 capsule by mouth every morning. [facility] amLODIPine 10 mg tablet 03-26 16:32: 14 Yes 10mg Take 10 mg by mouth at bedtime. [facility] gabapentin 100 mg capsule 03-26 16:32: 14 Yes 100mg Take 100 mg by mouth 2 (two) times daily as needed ([facility]K pain). [facility] foLIC acid 1 mg tablet 03-26 16:32: 14 Yes 1mg Take 1 mg by mouth daily. [facility] triamterene -hydrochlor othiazide 37.5-25 mg per capsule 03-26 16:32: 14 Yes 1{capsu le} Take 1 capsule by mouth every morning. [facility] amLODIPine 10 mg tablet 03-26 16:32: 14 Yes 10mg Take 10 mg by mouth at bedtime. [facility] gabapentin 100 mg capsule 03-26 16:32: 14 Yes 100mg Take 100 mg by mouth 2 (two) times daily as needed (MSK pain). [facility] foLIC acid 1 mg tablet 03-26 16:32: 14 Yes 1mg Take 1 mg by mouth daily. [facility] triamterene -hydrochlor othiazide 37.5-25 mg per capsule 03-26 16:32: 14 Yes 1{capsu le} Take 1 capsule by mouth every morning. [facility] amLODIPine 10 mg tablet 03-26 16:32: 14 Yes 10mg Take 10 mg by mouth at bedtime. [facility] gabapentin 100 mg capsule 03-26 16:32: 14 Yes 100mg Take 100 mg by mouth 2 (two) times daily as needed (MSK pain). [facility] foLIC acid 1 mg tablet 03-26 16:32: 14 Yes 1mg Take 1 mg by mouth daily. [facility] triamterene -hydrochlor othiazide 37.5-25 mg per capsule 03-26 16:32: 14 Yes 1{capsu le} Take 1 capsule by mouth every morning. [facility] amLODIPine 10 mg tablet 03-26 16:32: 14 Yes 10mg Take 10 mg by mouth at bedtime. [facility] gabapentin 100 mg capsule 03-26 16:32: 14 Yes 100mg Take 100 mg by mouth 2 (two) times daily as needed ([facility]K pain). [facility] foLIC acid 1 mg tablet 03-26 16:32: 14 Yes 1mg Take 1 mg by mouth daily. [facility] budesonide- formoterol 160-4.5 mcg/actuati on inhaler 03-26 00:00: 00 Yes 2{puff} Inhale 2 Puffs 2 (two) times daily. [facility] budesonide- formoterol 160-4.5 mcg/actuati on inhaler 03-26 00:00: 00 Yes 2{puff} Inhale 2 Puffs 2 (two) times daily. [facility] budesonide- formoterol 160-4.5 mcg/actuati on inhaler 03-26 00:00: 00 Yes 2{puff} Inhale 2 Puffs 2 (two) times daily. [facility] budesonide- formoterol 160-4.5 mcg/actuati on inhaler 03-26 00:00: 00 Yes 2{puff} Inhale 2 Puffs 2 (two) times daily. [facility] budesonide- formoterol 160-4.5 mcg/actuati on inhaler -18 00:00: 00 Yes 2{puff} Inhale 2 Puffs 2 (two) times daily. [facility] Immunizations Ordered Immunization Name Filled Immunization Name Date Status Comments Source SARS-COV-2 COVID-19 PFIZER VACCINE 2021-02-03 00:00:00 Completed [facility] SARS-COV-2 COVID-19 PFIZER VACCINE 2021-02-03 00:00:00 Completed [facility] SARS-COV-2 COVID-19 PFIZER VACCINE 2021-02-03 00:00:00 Completed [facility] SARS-COV-2 COVID-19 PFIZER VACCINE 2021-01-13 00:00:00 Completed [facility] SARS-COV-2 COVID-19 PFIZER VACCINE 2021-01-13 00:00:00 Completed [facility] SARS-COV-2 COVID-19 PFIZER VACCINE 2021-01-13 00:00:00 Completed [facility] Pneumococcal Polysaccharide, PPSV23 (PNEUMOVAX) 2018-03-26 00:00:00 Completed [facility] Influenza Virus Vaccine Quad IM 3+ YRS 2018-03-26 00:00:00 Completed [facility] Pneumococcal Polysaccharide, PPSV23 (PNEUMOVAX) 2018-03-26 00:00:00 Completed [facility] Influenza Virus Vaccine Quad IM 3+ YRS 2018-03-26 00:00:00 Completed [facility] Pneumococcal Polysaccharide, PPSV23 (PNEUMOVAX) 2018-03-26 00:00:00 Completed [facility] Influenza Virus Vaccine Quad IM 3+ YRS 2018-03-26 00:00:00 Completed [facility] Pneumococcal Polysaccharide, PPSV23 (PNEUMOVAX) Unknown Completed [facility] Influenza Virus Vaccine Quad IM 3+ YRS Unknown Completed [facility] SARS-COV-2 COVID-19 PFIZER VACCINE Unknown Completed [facility] SARS-COV-2 COVID-19 PFIZER VACCINE Unknown Completed [facility] Pneumococcal Polysaccharide, PPSV23 (PNEUMOVAX) Unknown Completed [facility] Influenza Virus Vaccine Quad IM 3+ YRS Unknown Completed [facility] SARS-COV-2 COVID-19 PFIZER VACCINE Unknown Completed [facility] SARS-COV-2 COVID-19 PFIZER VACCINE Unknown Completed [facility] Vital Signs Vital Name Observation Time Observation Value Comments S bernardo Systolic blood pressure 2023-11-11 02:00:00 127 mm[Hg] [facility] Diastolic blood pressure 2023-11-11 02:00:00 87 mm[Hg] [facility] Heart rate 2023-11-11 02:00:00 79 /min [facility] Respiratory rate 2023-11-11 02:00:00 20 /min [facility] Oxygen saturation in Arterial blood by Pulse oximetry 2023-11-11 02:00:00 98 /min [facility] Body temperature 2023-11-11 01:31:00 36.28 Debbie [facility] Body height 2023-11-11 01:31:00 162.6 cm [facility] Body weight 2023-11-11 01:31:00 79.379 kg [facility] BMI 2023-11-11 01:31:00 30.04 kg/m2 [facility] Systolic blood pressure 2023-10-27 06:54:00 133 mm[Hg] [facility] Diastolic blood pressure 2023-10-27 06:54:00 94 mm[Hg] [facility] Heart rate 2023-10-27 06:54:00 95 /min [facility] Body temperature 2023-10-27 06:54:00 36.44 Debbie [facility] Respiratory rate 2023-10-27 06:54:00 22 /min [facility] Body height 2023-10-27 06:54:00 162.6 cm [facility] Body weight 2023-10-27 06:54:00 78.472 kg [facility] BMI 2023-10-27 06:54:00 29.70 kg/m2 [facility] Oxygen saturation in Arterial blood by Pulse oximetry 2023-10-27 06:54:00 94 /min [facility] Systolic blood pressure 2022-10-14 19:43:00 111 mm[Hg] [facility] Diastolic blood pressure 2022-10-14 19:43:00 74 mm[Hg] [facility] Heart rate 2022-10-14 19:43:00 98 /min [facility] Body temperature 2022-10-14 19:43:00 36.39 Debbie [facility] Respiratory rate 2022-10-14 19:43:00 22 /min [facility] Oxygen saturation in Arterial blood by Pulse oximetry 2022-10-14 19:43:00 94 /min [facility] Body height 2022-10-14 16:13:00 162.6 cm [facility] Body weight 2022-10-14 16:13:00 81.647 kg [facility] BMI 2022-10-14 16:13:00 30.90 kg/m2 [facility] Systolic blood pressure 2022-03-12 10:13:00 119 mm[Hg] [facility] Diastolic blood pressure 2022-03-12 10:13:00 75 mm[Hg] [facility] Heart rate 2022-03-12 10:13:00 105 /min [facility] Body temperature 2022-03-12 10:13:00 37.28 Debbie [facility] Respiratory rate 2022-03-12 10:13:00 19 /min [facility] Body height 2022-03-12 10:13:00 162.6 cm [facility] Body weight 2022-03-12 10:13:00 99.791 kg [facility] BMI 2022-03-12 10:13:00 37.76 kg/m2 [facility] Oxygen saturation in Arterial blood by Pulse oximetry 2022-03-12 10:13:00 96 /min [facility] Systolic blood pressure 2022-02-20 11:57:00 155 mm[Hg] [facility] Diastolic blood pressure 2022-02-20 11:57:00 88 mm[Hg] [facility] Heart rate 2022-02-20 11:57:00 105 /min [facility] Respiratory rate 2022-02-20 11:57:00 18 /min [facility] Oxygen saturation in Arterial blood by Pulse oximetry 2022-02-20 11:57:00 100 /min [place] [facility] Body temperature 2022-02-20 09:25:00 37 Debbie [facility] Body height 2022-02-20 09:25:00 162.6 cm [facility] Body weight 2022-02-20 09:25:00 96.163 kg [facility] BMI 2022-02-20 09:25:00 36.39 kg/m2 [facility] Procedures Procedure Date / Time Performed Performing Clinician Source NOTICE OF PRIVACY PRACTICES 2023-11-11 01:24:24 Doctor Unassigned, [place] [facility] CONSENT/REFUSAL FOR DIAGNOSIS AND TREATMENT 2023-11-11 01:23:54 Doctor Unassigned, [place] [facility] COVID-19 (ID NOW RAPID TESTING) 2023-10-27 07:09:00 Jac Navarro [facility] NOTICE OF PRIVACY PRACTICES 2023-10-27 06:49:48 Doctor Unassigned, [place] [facility] CONSENT/REFUSAL FOR DIAGNOSIS AND TREATMENT 2023-10-27 06:47:40 Doctor Unassigned, [place] [facility] CT ABDOMEN PELVIS W CONTRAST 2022-10-14 17:33:00 [facility] 2022-10-14 [facility]:10:[facility] 2022-10-14 16:37:00 Melinda Maciel [facility] COMP. METABOLIC PANEL ([id number]) 2022-10-14 16:37:00 [facility] WITH DIFF 2022-10-14 16:37:00 Melinda Maciel [facility] PROTHROMBIN TIME / INR 2022-10-14 16:37:00 [facility] 2022-10-14 16:37:00 [facility] N-TERMINAL PRO-BNP 2022-10-14 16:37:[address] [facility] [place] [place] CONSENT/REFUSAL FOR DIAGNOSIS AND TREATMENT 2022-10-14 15:56:36 Doctor Unassigned, [place] [facility] CONSENT/REFUSAL FOR DIAGNOSIS AND TREATMENT 2022-03-12 10:03:12 Doctor Unassigned, [place] [facility] XR CHEST 1 VW 2022-02-20 09:59:00 Christy Holliday [facility] LIPASE 2022-02-20 09:30:00 Christy Holliday [facility] TROPONIN I 2022-02-20 09:30:00 Christy Holliday [facility] COMP. METABOLIC PANEL ([id number]) 2022-02-20 09:30:00 Christy Holliday [facility] CBC WITH DIFF 2022-02-20 09:30:00 Christy Holliday [facility] N-TERMINAL PRO-BNP 2022-02-20 09:30:00 Christy Holliday [facility] NOTICE OF PRIVACY PRACTICES 2022-02-20 09:15:02 Doctor Unassigned, [place] [facility] CONSENT/REFUSAL FOR DIAGNOSIS AND TREATMENT 2022-02-20 09:14:47 Doctor Unassigned, [place] [facility] Encounters Start Date/Time End Date/Time Encounter Type Admission Type Attending [facility] Care Facility Care Department Encounter ID Source 2023-11-10 19:29:00 2023-11-10 20:14:00 Emergency X CHRISTY HOLLIDAY [facility] ERT [id number] [facility] 2023-11-10 19:29:00 2023-11-10 20:14:00 Emergency Elinicki Christy Olson [facility] [id number] 350.1.13.10 4.2.7.2.686 [id number] [facility] 2023-10-27 00:49:00 2023-10-27 01:41:00 Emergency X JAC NAVARRO [facility] ERT [id number] [facility] 2023-10-27 00:49:00 2023-10-27 01:41:00 Emergency Jac Navarro [facility] [id number] 350.1.13.10 4.2.7.2.686 [id number] [facility] 2023-07-15 00:00:00 2023-07-15 00:00:00 Outpatient PRELEE, DARIEN MARIA ELENA BECERRA [id number] [facility] Elena [facility] 2023-06-16 11:30:00 2023-06-16 11:30:00 Outpatient PREZAS, DARIEN MARIA ELENA BECERRA [id number] Maria Elena [facility] 2023-05-18 00:00:00 2023-05-18 00:00:00 Outpatient GROUP, MARIA ELENA BECERRA [id number] [facility] 2022-10-14 10:07:00 2022-10-14 14:39:00 Emergency X MELINDA MACILE [facility] ERT [id number] [facility] 2022-10-14 10:07:00 2022-10-14 14:39:00 Emergency Melinda Maciel [facility] 1.2.840.114 350.1.13.10 4.2.7.2.686 [id number] [facility] 2022-03-12 05:15:00 2022-03-12 06:41:00 Emergency X DEEPACHRISTY LOPEZ [facility] ERT [id number] [facility] 2022-03-12 05:15:00 2022-03-12 06:41:00 Emergency Deepajessica Juniortera Olson [facility] 1.2.840.114 350.1.13.10 4.2.7.2.686 [id number] [facility] 2022-02-20 04:17:00 2022-02-20 07:16:00 Emergency X DEEPAJESSICA JUNIORTERA [facility] ERT [id number] [facility] 2022-02-20 04:17:00 2022-02-20 07:16:00 Emergency Christy Holliday [facility] 1.2.840.114 350.1.13.10 4.2.7.2.686 [id number] [facility] 2021-02-03 11:10:00 2021-02-03 11:10:00 Outpatient R PINEDA, REX [facility] [id number] [facility] 2021-01-13 11:20:00 2021-01-13 11:20:00 Outpatient [facility] [id number] [facility] 2020-11-10 08:20:00 2020-11-10 08:20:00 Outpatient KARLEY ESTRADA [facility] [id number] [facility] Results Test Description Test Time Test Comments Results Result Co mments Source [id number] 10:13:01* Test Item Value Reference Range Interpretation Comme nts NT-proBNP (test code = 4408727167) 52 pg/mL See_Comment [Automated message] The system which generated this result transmitted reference range: <=125. The reference range was not used to interpret this result as normal/abnormal. LOUISE (test code = LOUISE) Biotin has been reported to cause a negative bias, interpret results relative to patient's use of biotin. Lab Interpretation (test code = 10797-9) Normal [facility] MET[facility]OLIC PANEL ([id number])2022-02-20 10:04:02* Test Item Value Reference Range Interpretation Comme nts NA (test code = 6967619068) 137 mmol/L 135-145 K (test code = 7006083734) 3.6 mmol/L 3.5-5.0 CL (test code = 7945054821) 99 mmol/L 98-108 CO2 TOTAL (test code = 9018854196) 25 mmol/L 23-31 AGAP (test code = 7137554348) 2-16 BUN (test code = 5309482185) 6 mg/dL 7-23 L GLUCOSE (test code = 6385332617) 88 mg/dL 70-110 CREATININE (test code = 3343542269) 0.55 mg/dL 0.60-1.25 L TOTAL BILI (test code = 6421465772) 0.8 mg/dL 0.1-1.1 CALCIUM (test code = 1050014638) 8.9 mg/dL 8.6-10.6 T PROTEIN (test code = 3989699933) 7.5 g/dL 6.3-8.2 ALBUMIN (test code = 0908687483) 4.8 g/dL 3.5-5.0 ALK PHOS (test code = 7679465560) 113 U/L 34-122 ALTv (test code = 1742-6) 84 U/L 5-50 H AST(SGOT) (test code = 8775611066) 107 U/L 13-40 H eGFR (test code = 6876736578) mL/min/1.73m2 LOUISE (test code = LOUISE) Association [...] imaging tests). Lab Interpretation (test code = 67503-8) Abnormal [facility], [id number] 10:03:21* Test Item Value Reference Range Interpretation Comme nts LIPASE (test code = 8937996533) 193 U/L 0-220 Lab Interpretation (test cod e = 46383-5) Normal [facility] WITH RAYW3581-73-56 09:39:17* Test Item Value Reference Range Interpretation Comme nts WBC (test code = 6690-2) See_Comment [Automated Tok3na ge] The system which generated this result transmitted reference range: 4.20 - 10.70 10*3/?L. The reference range was not used to interpret this result as normal/abnormal. RBC (test code = 789-8) See_Comment [Automated Tok3na ge] The system which generated this result [...] g/dL 31.2-35.0 H RDW-SD (test code = 90542-7) 44.4 fL 38.5-51.6 RDW-CV (test code = 788-0) 11.9 % 12.1-15.4 L PLT (test code = 777-3) See_Comment [Automated messa ge] The system which generated this result transmitted reference range: 150 - 328 10*3/?L. The reference range was not used to interpret this result as normal/abnormal. MPV (test code = 73339-7) 9.2 fL 9.8-13.0 L NRBC/100 WBC (test code = 5801719956) See_Comment [Automated Expect Labs ssage] The system which generated this result transmitted reference range: 0.0 - 10.0 /100 WBCs. The reference range was not used to interpret this result as normal/abnormal. NRBC x10^3 (test code = 6810419397) <0.01 See_Comment [Automated messa ge] The system which generated this result transmitted reference range: 10*3/?L. The reference range was not used to interpret this result as normal/abnormal. GRAN MAT (NEUT) % (test code = 770-8) 69.9 % IMM GRAN % (test code = 5040566242) 1.50 % LYMPH % (test code = 736-9) 18.9 % MONO % (test code = 5905-5) 7.0 % EOS % (test code = 713-8) 1.9 % BASO % (test code = 706-2) 0.8 % GRAN MAT x10^3(ANC) (test code = 4692884827) 7.15 10*3/uL 1.99-6.95 H IMM GRAN x10^3 (test code = 1452478775) 0.15 10*3/uL 0.00-0.06 H LYMPH x10^3 (test code = 731-0) 1.93 10*3/uL 1.09-3.23 MONO x10^3 (test code = 742-7) 0.72 10*3/uL 0.36-1.02 EOS x10^3 (test code = 711-2) 0.19 10*3/uL 0.06-0.53 BASO x10^3 (test code = 704-7) 0.08 10*3/uL 0.01-0.09 Lab Interpretation (test code = 09007-6) Abnormal [facility] Notes Date/Time Note Provider Source 2023-11-10 20:13:39 qsYhtSMTAa0TqgZCPOu8 JbsH58d/TlPnCn 4hne/XN545wW4QKeOjLLq4abvBXtmV2184 -01-02T20:13:39 Pt requesting to leave AMA. ERP notified. Pt counseled to remain, risks of leaving AMA including discussed with pt. Pt continued to decline further ER evaluation at this time. AMA papers signed, witnessed, and placed on patient's chart. Pt left ambulatory. VS stable, no ataxia noted, GCS 15, A&Ox4. 13614-8Mbrwdtsyo department LhynXK5184-58-11L95:13:52[facility] NoteTXT1.2.840.519773.1.13.104.2.7 .2.326375|[id number] for patient emzi32487-2NannANAWZYHVJWBOujjkovj d C-CDA narrative [id number] R Goodrich RN[address]TXTX[address] 76MCMUTSKTKYWSLBQWQNIXZS1528-74-59 T20:13:521.2.840.039140.1.72.3.15| 1.2.840.543953.1.13.104.2.7.2.7278 [id number] Briseida Medrano RN [facility] 2023-11-10 19:30:29 o2Or5/XqP9t0A3gsa+7H HtdmVtxF/EYpEt fMFCMxoO9ECqP/psLs72kLf7GP5f6m8314 -01-02T19:30:29 Patient arrived to ED c/o SOB and COPD exacerbation. Symptoms started this morning. Patient wears 3L NC at home. Patient is a smoker. Patient states having the chills, diarrhea, and vomiting. States having sharp pains in chest from coughing. 58438-4Iqavtwqtl department Triage cybaFF4308-04-36Z75:35:27[facility] department Triage noteTXT1.2.840.660968.1.13.104.2.7 .2.140776|[id number] for patient kxye22552-2Fwwwbjtqb department NoteLNNARRATIVEFormatted C-CDA narrative [id number]-Cuuce McInnis RN[address]GalvestonGalvestonTXTX[address] 92PJLJAVXKYQLMPPMPNKPFFN4960-40-58 T19:35:271.2.840.898049.1.72.3.15| 1.2.840.023667.1.13.104.2.7.2.7278 [id number] Sreedhar Gomez RN [facility]"
[2023-11-29] MEDS ORDERED: NA CHLORIDE 0.9% 1,000 ML ONE (13:57)
[2023-11-29] MEDS ORDERED: DIAZEPAM 10 MG/2 ML INJ SYRINGE ONE (13:57)
--- NOTE | 2023-11-29 14:15 | RAD REPORT ---
EXAM DESCRIPTION: RAD - Chest Single View - 11/29/2023 1:58 pm CLINICAL HISTORY: DYSPNEA COMPARISON: Chest Single View dated 11/17/2023; Chest Single View dated 11/12/2023; Chest Single View da sanjay 11/11/2023; Chest Single View dated 11/02/2023 FINDINGS: Lines: None. Lungs: No evidence of edema or pneumonia. Pleural: No significant pleural effusions or pneumothorax. Cardiac: The heart size is within normal limits. Mediastinum: Within normal limits. Bones: No acute fractures. Other: None IMPRESSION: No acute cardiopulmonary disease.
[2023-11-29 14:37] LABS: Absolute Lymphocytes (CBC) 1.1 K/uL (0.7-4.9); Hematocrit 46.5 % (39.6-49.0); Lymphocytes % 12.4 % (15.3-44.8); MPV 7.2 fL (7.6-11.3); Platelets 289 thou/uL (152-406); RBC Red Blood Cell Count 4.65 M/uL (4.33-5.43)
[2023-11-29 14:47] LABS: Protime INR 0.96
[2023-11-29 15:05] LABS: Albumin 3.7 g/dL (3.4-5.0); Bilirubin Total 0.6 mg/dL (0.2-1.0); Protein, Total 7.8 g/dL (6.4-8.2)
[2023-11-29 15:34] LABS: Albumin 3.7 g/dL (3.4-5.0); Bilirubin Direct 0.1 mg/dL (0-0.2); Bilirubin Indirect, Calculated 0.5 mg/dL (0.2-0.8); Bilirubin Total 0.6 mg/dL (0.2-1.0); Protein, Total 7.8 g/dL (6.4-8.2); Troponin High Sensitivity 9.1 pg/mL (<58.9)
[2023-11-29 15:35] LABS: Potassium 4.3 mEq/L (3.5-5.1)
[2023-11-29 15:40] LABS: Potassium 4.3 mEq/L (3.5-5.1)
--- NOTE | 2023-11-29 16:17 | EDPHYS ---
Physician Documentation [facility] Name: Randy Briones Age: 53 yrs Sex: Male : 1970 Arrival Date: 11/29/2023 Time: 13:15 Bed 14 Private MD: ED Physician Dheeraj Thibodeaux HPI: 11/29 14:24 This 53 yrs old Male presents to ER via Ambulatory with complaints of COPD rn Exacerbation, withdrawal. 14:25 Patient reports not eating/drinking well for a few days, stopped drinking yesterday rn because wants to quit. Reports nausea/anorexia/shaking. Patient feels consistent to previous alcohol withdrawals. Patient denies any fever or illness that prompted him to stop drinking. Patient states stopped drinking on his own free will. No blood in stool or hematemesis. Patient also reports intermittent abdominal cramping. Reports shortness of breath as well.. Onset: The symptoms/episode began/occurred this morning. Severity of symptoms: At their worst the symptoms were moderate in the emergency department the symptoms are unchanged. The patient has experienced similar episodes in the past. The patient has not recently seen a physician. Historical: - Allergies: 13:27 Lisinopril; ko1 - PMHx: 13:27 Alcoholism; home 02 3LNC PRN; COPD; Hypertension; ko1 - PSHx: 13:27 Amputation of left index finger; ko1 - Immunization history:: Adult Immunizations unknown. - Social history:: Smoking status: Patient reports the use of cigarette tobacco products, smokes one pack cigarettes per day. Patient uses alcohol, on a daily basis. - Family history:: not pertinent. - Hospitalizations: : No recent hospitalization is reported. ROS: 14:25 Constitutional: Negative for fever, chills, and weight loss, Cardiovascular: Positive rn for chest pain and heart racing Respiratory: Positive for shortness of breath Abdomen/GI: Positive for nausea and abdominal cramping MS/Extremity: Negative for injury and deformity, Skin: Negative for injury, rash, and discoloration, Neuro: Positive for generalized weakness and shaking all over Exam: 14:25 Constitutional: This is a well developed, well nourished patient who is awake, alert, rn tachypneic Cardiovascular: Tachycardic, regular. Respiratory: Mild tachypnea, diminished breath sounds at bases but no wheezing or retractions Abdomen/GI: Soft, nontender Skin: Warm, dry MS/ Extremity: Pulses equal, no cyanosis. Neuro: Awake and alert, GCS 15 16:58 ECG was reviewed by the Attending Physician. rn Vital Signs: 13:24 BP 140 / 105; Pulse 118; Resp 19; Temp 97.4; Pulse Ox 96% ; ko1 14:40 BP 147 / 84; Pulse 83; Resp 22; Pulse Ox 94% on 2 lpm NC; Pain 10/10; tl4 15:12 BP 182 / 98; Pulse 96; Resp 19; Pulse Ox 98% on 2 lpm NC; Pain 10/10; tl4 16:32 BP 166 / 86; Pulse 97; Resp 20; Pulse Ox 97% on R/A; Pain 10/10; tl4 14:40 Pain Scale: Adult tl4 15:12 Pain Scale: Adult tl4 16:32 Pain Scale: Adult tl4 [place] Coma Score: 14:40 Eye Response: spontaneous(4). Motor Response: obeys commands(6). Verbal Response: tl4 oriented(5). Total: 15. MDM: 13:19 Patient medically screened. rn 16:14 Differential Diagnosis ETOH withdrawal, dehydration, COPD. Data reviewed: vital signs, rn nurses notes, lab test result(s), radiologic studies, plain films, and as a result, I will admit patient. Consideration of Admission/Observation Patient was admitted/placed on observation. Escalation of care including admission/observation considered. Care significantly affected by the following chronic conditions: Chronic Obstructive Pulmonary Disease. Counseling: I had a detailed discussion with the patient and/or guardian regarding the historical points, exam findings, and any diagnostic results supporting the discharge/admit diagnosis, lab results, radiology results, the need for further work-up and treatment in the hospital. Response to treatment: the patient's symptoms have mildly improved after treatment, and as a result, I will admit patient. ED course: Patient given 10 mg of Valium IV, initially helped, however now still shaking and tachycardic. Will remedicated and admit to hospitalist service for EtOH withdrawal.. 16:15 ED course: I personally spent 35 minutes engaged in work directly related to the rn individual patient's care. This does not include any time spent performing procedures. The patient has been deemed critically ill because of acute alcohol withdrawal and delirium tremens, extremely elevated blood pressure and tachycardia requiring IV benzodiazepine and fluid resuscitation, consultation and admission.. 11/29 13:20 Order name: BMP; Complete Time: 15:59 rn 11/29 13:20 Order name: Blood Culture Adult (2) rn 11/29 13:20 Order name: CBC with Diff; Complete Time: 15:59 rn 11/29 13:20 Order name: Hepatic Function; Complete Time: 15:59 rn 11/29 13:20 Order name: NT PRO-BNP; Complete Time: 15:59 rn 11/29 13:20 Order name: PT-INR; Complete Time: 15:59 rn 11/29 13:20 Order name: Ptt, Activated; Complete Time: 15:59 rn 11/29 13:20 Order name: Troponin HS; Complete Time: 15:59 rn 11/29 13:36 Order name: CMP; Complete Time: 15:59 rn 11/29 13:36 Order name: Lipase; Complete Time: 15:59 rn 11/29 13:37 Order name: ETOH Level; Complete Time: 15:59 rn 11/29 16:53 Order name: Urinalysis w/ reflexes EDMS 11/29 16:54 Order name: CBC with Automated Diff EDMS 11/29 16:54 Order name: CBC with Automated Diff EDMS 11/29 16:54 Order name: CBC with Automated Diff EDMS 11/29 16:54 Order name: CBC with Automated Diff EDMS 11/29 16:54 Order name: Comprehensive Metabolic Panel EDMS 11/29 16:54 Order name: Comprehensive Metabolic Panel EDMS 11/29 16:54 Order name: Comprehensive Metabolic Panel EDMS 11/29 16:54 Order name: Comprehensive Metabolic Panel EDMS 11/29 16:54 Order name: Lipid Profile EDMS 11/29 16:54 Order name: Lipid Profile EDMS 11/29 16:54 Order name: Magnesium EDMS 11/29 16:54 Order name: Magnesium EDMS 11/29 16:54 Order name: Magnesium EDMS 11/29 16:54 Order name: Magnesium EDMS 11/29 16:54 Order name: Phosphorus EDMS 11/29 16:54 Order name: Phosphorus EDMS 11/29 16:54 Order name: Phosphorus EDMS 11/29 16:54 Order name: Phosphorus EDMS 11/29 16:54 Order name: T4 Free EDMS 11/29 16:54 Order name: T4 Free [facility] 11/29 16:54 Order name: Thyroid Stimulating Hormone [facility] 11/29 16:54 Order name: Thyroid Stimulating Hormone [facility] 11/29 13:20 Order name: XRAY CXR (1 view); Complete Time: 14:23 rn 11/29 13:20 Order name: EKG; Complete Time: 13:21 rn 11/29 16:53 Order name: CONS Physician Consult [facility] 11/29 16:54 Order name: Delirium Tremens Prophylaxis-IV Meds [facility] 11/29 13:20 Order name: Cardiac monitoring; Complete Time: 15:00 rn 11/29 13:20 Order name: EKG - Nurse/Tech; Complete Time: 15:26 rn 11/29 13:20 Order name: IV Saline Lock; Complete Time: 15:00 rn 11/29 13:20 Order name: Labs collected and sent; Complete Time: 15:00 rn 11/29 13:20 Order name: O2 Per Protocol; Complete Time: 15:00 rn 11/29 13:20 Order name: O2 Sat Monitoring; Complete Time: 15:00 rn EC:58 Rate is 87 beats/min. Rhythm is regular. QRS Chemult is Normal. FL interval is normal. QRS rn interval is normal. QT interval is prolonged at 495 msec. No Q waves. T waves are Normal. No ST changes noted. Clinical impression: NSR w/ Non-specific ST/T Changes. Interpreted by me. Reviewed by me. Administered Medications: 14:59 Drug: NS 0.9% IV 1000 ml IV at 1000 ml once Route: IV; Rate: 1000 ml; Site: right tl4 antecubital; 16:16 Follow up: Response: No adverse reaction; IV Status: Completed infusion; IV Intake: tl4 1000ml 15:08 Drug: Diazepam IVP 10 mg IVP once Route: IVP; Infused Over: 5 mins; Site: right tl4 antecubital; 15:12 Follow up: Response: No adverse reaction; Anxiety decreased tl4 16:28 Drug: Nicotine Transdermal Patch 21 mg/24 hr 1 patches Transdermal once {Note: applied tl4 to left posterior shoulder.} Route: Transdermal; Site: affected area; 16:28 Drug: Ondansetron IVP 4 mg IVP once; over 2 minutes Route: IVP; Infused Over: 2 mins; tl4 Site: right antecubital; 16:29 Drug: morphine IVP or IV 2 mg IVP once over 4 mins Route: IVP; Infused Over: 4 mins; tl4 Site: right antecubital; Disposition Summary: 11/29/23 16:16 Hospitalization Ordered Notes: Hospitalization Status: Inpatient Admission rn Provider: Selam Anne rn Location: Telemetry/[facility] (Inpatient) rn Condition: Stable rn Problem: new rn Symptoms: have improved rn Bed/Room Type: Standard rn Room Assignment: 232(11/29/23 17:06) eb Diagnosis - Alcohol dependence with withdrawal, unspecified rn Forms: - Medication Reconciliation Form rn - SBAR form rn - Leadership Thank You Letter undergraduate intern time excluding procedures: 16:15 Critical care time: Bedside Care: 30 minutes, Consultation: 5 minutes. Total time: 35 rn minutes Signatures: Dispatcher [employer] EDDheeraj Ibarra MD MD rn Botello, Elizabeth eb Oliver, Kathy RN RN Kapil Mccabe tl4 Corrections: (The following items were deleted from the chart) 17:06 16:16 rn eb
--- NOTE | 2023-11-29 16:17 | ER ---
Nurse's Notes [facility] Name: Randy Briones Age: 53 yrs Sex: Male : 1970 Arrival Date: 11/29/2023 Time: 13:15 Bed 14 Private MD: Diagnosis: Alcohol dependence with withdrawal, unspecified Presentation: 11/29 13:24 Chief complaint: Patient states: having a hard time breathing, anxious. Hasnt had a ko1 drink since yesterday and needs some meds to take the edge off. Chest is hurting and has nausea. Coronavirus screen: At this time, the client does not indicate any symptoms associated with coronavirus-19. Ebola Screen: No symptoms or risks identified at this time. Initial Sepsis Screen: Does the patient meet any 2 criteria? No. Patient's initial sepsis screen is negative. Does the patient have a suspected source of infection? No. Patient's initial sepsis screen is negative. Risk Assessment: Do you want to hurt yourself or someone else? Patient reports no desire to harm self or others. Onset of symptoms was November 29, 2023. 13:24 Method Of Arrival: Ambulatory ko1 13:24 Acuity: CANDACE 3 ko1 Triage Assessment: 13:27 General: Appears distressed, Behavior is anxious. Pain: Complains of pain in chest. ko1 Cardiovascular: Reports chest pain, Patient's skin is warm and dry. Rhythm is regular. Historical: - Allergies: 13:27 Lisinopril; ko1 - PMHx: 13:27 Alcoholism; home 02 3LNC PRN; COPD; Hypertension; ko1 - PSHx: 13:27 Amputation of left index finger; ko1 - Immunization history:: Adult Immunizations unknown. - Social history:: Smoking status: Patient reports the use of cigarette tobacco products, smokes one pack cigarettes per day. Patient uses alcohol, on a daily basis. - Family history:: not pertinent. - Hospitalizations: : No recent hospitalization is reported. Screenin:41 [facility] ED Fall Risk Assessment (Adult) History of falling in the last 3 months, tl4 including since admission No falls in past 3 months (0 pts) Confusion or Disorientation No (0 pts) Intoxicated or Sedated No (0 pts) Impaired Gait No (0 pts) Mobility Assist Device Used No (0 pt) Altered Elimination No (0 pt) Score/Fall Risk Level 0 - 2 = Low Risk Oriented to surroundings, Maintained a safe environment, Educated pt \\T\\ family on fall prevention, incl call for assistance when getting out of bed, Assessed \\T\\ reinforced patient's understanding of fall precautions, Provided non-skid footwear, Hourly rounding (assess needs \\T\\ fall precautionary measures) done. Abuse screen: Denies threats or abuse. Denies injuries from another. Nutritional screening: No deficits noted. Tuberculosis screening: No symptoms or risk factors identified. 14:45 Clinical [place] Withdrawal Assessment for Alcohol, revised ([facility]): tl4 Nausea/Vomitin - Intermittent nausea with dry heaves Headache: 3 - Moderate Paroxysmal Sweats: 0 - No sweats visible Anxiety: 0 - No anxiety, at ease Agitation: 1 - Somewhat more than normal activity Tremor: 4 - Moderate when client's hands extended Auditory Disturbances: 0 - Not present Visual Disturbances: 0 - Not present Tactile Disturbances: 0 - None Orientation and Clouding of Sensorium: 0 - Oriented and can do serial additions Total Score: 10 to 15: Mild Withdrawal. 15:47 Clinical [place] Withdrawal Assessment for Alcohol, revised ([facility]): tl4 Nausea/Vomitin - Intermittent nausea with dry heaves Headache: 3 - Moderate Paroxysmal Sweats: 0 - No sweats visible Anxiety: 0 - No anxiety, at ease Agitation: 0 - Normal actiivty Tremor: 0 - No tremor Auditory Disturbances: 0 - Not present Visual Disturbances: 0 - Not present Tactile Disturbances: 0 - None Orientation and Clouding of Sensorium: 0 - Oriented and can do serial additions Total Score: < 10 Very mild withdrawal. 16:51 Clinical [place] Withdrawal Assessment for Alcohol, revised ([facility]): tl4 Nausea/Vomitin - Intermittent nausea with dry heaves Headache: 2 - Mild Paroxysmal Sweats: 0 - No sweats visible Anxiety: 0 - No anxiety, at ease Agitation: 1 - Somewhat more than normal activity Tremor: 0 - No tremor Auditory Disturbances: 0 - Not present Visual Disturbances: 0 - Not present Tactile Disturbances: 0 - None Orientation and Clouding of Sensorium: 0 - Oriented and can do serial additions Total Score: < 10 Very mild withdrawal. Assessment: 14:38 General: Appears distressed, uncomfortable, Behavior is cooperative. Pain: Pain does tl4 not radiate. Pain began years ago. Neuro: No deficits noted. Cardiovascular: Reports chest pain, nausea. Respiratory: Reports shortness of breath. GI: Reports cramping, nausea. : No signs and/or symptoms were reported regarding the genitourinary system. EENT: No signs and/or symptoms were reported regarding the EENT system. 15:44 Reassessment: Patient and/or family updated on plan of care and expected duration. Pain tl4 level reassessed. Patient is alert/active/playful, equal unlabored respirations, skin warm/dry/pink. Patient states symptoms have not improved. Neuro: Reports headache in entire. Musculoskeletal: Reports "my hands are tingling". 17:24 Reassessment: Attempt report, no answer, left VM. tl4 Vital Signs: 13:24 BP 140 / 105; Pulse 118; Resp 19; Temp 97.4; Pulse Ox 96% ; ko1 14:40 BP 147 / 84; Pulse 83; Resp 22; Pulse Ox 94% on 2 lpm NC; Pain 10/10; tl4 15:12 BP 182 / 98; Pulse 96; Resp 19; Pulse Ox 98% on 2 lpm NC; Pain 10/10; tl4 16:32 BP 166 / 86; Pulse 97; Resp 20; Pulse Ox 97% on R/A; Pain 10/10; tl4 14:40 Pain Scale: Adult tl4 15:12 Pain Scale: Adult tl4 16:32 Pain Scale: Adult tl4 Vitals: 14:40 Cardiac Rhythm Assessment Regular Sinus rhythm. tl4 [place] Coma Score: 14:40 Eye Response: spontaneous(4). Motor Response: obeys commands(6). Verbal Response: tl4 oriented(5). Total: 15. ED Course: 13:18 Patient arrived in ED. mg5 13:19 Dheeraj Thibodeaux MD is Attending Physician. rn 13:27 Triage completed. ko1 13:27 Arm band placed on right wrist. Patient placed in an exam room, on a stretcher, on ko1 remote sensing advisor, on pulse oximetry, Patient notified of wait time. 13:50 Kapil Tsang is Primary Nurse. tl4 14:00 XRAY CXR (1 view) In Process Unspecified. EDMS 14:38 Inserted saline lock: 22 gauge in right antecubital area, using aseptic technique. tl4 Blood collected. 14:42 Patient has correct armband on for positive identification. Placed in gown. Bed in low tl4 position. Call light in reach. Side rails up X2. Adult w/ patient. Provided Education on: ED process. Client placed on continuous cardiac and pulse oximetry monitoring. NIBP monitoring applied. skull grinder on. Door closed. Noise minimized. Lights dimmed. Moved to private room. Warm blanket given. Head of bed lowered. 14:42 No provider procedures requiring assistance completed. tl4 14:43 Oxygen administration via nasal cannula \\T\\ 2L/min. tl4 16:16 Selam Anne MD is Hospitalizing Provider. rn 17:21 Patient admitted, IV remains in place. tl4 Administered Medications: 14:59 Drug: NS 0.9% IV 1000 ml IV at 1000 ml once Route: IV; Rate: 1000 ml; Site: right tl4 antecubital; 16:16 Follow up: Response: No adverse reaction; IV Status: Completed infusion; IV Intake: tl4 1000ml 15:08 Drug: Diazepam IVP 10 mg IVP once Route: IVP; Infused Over: 5 mins; Site: right tl4 antecubital; 15:12 Follow up: Response: No adverse reaction; Anxiety decreased tl4 16:28 Drug: Nicotine Transdermal Patch 21 mg/24 hr 1 patches Transdermal once {Note: applied tl4 to left posterior shoulder.} Route: Transdermal; Site: affected area; 16:28 Drug: Ondansetron IVP 4 mg IVP once; over 2 minutes Route: IVP; Infused Over: 2 mins; tl4 Site: right antecubital; 16:29 Drug: morphine IVP or IV 2 mg IVP once over 4 mins Route: IVP; Infused Over: 4 mins; tl4 Site: right antecubital; Medication: 14:41 VIS not applicable for this client. tl4 Intake: 16:16 IV: 1000ml; Total: 1000ml. tl4 Outcome: 16:16 Decision to Hospitalize by Provider. rn 17:34 Admitted to Med/surg accompanied by tech, via wheelchair, room 232, Report called to tl4 BRIGETTE Mcmahan 17:34 Condition: stable 17:34 Instructed on the need for admit, 17:42 Patient left the ED. hb Signatures: Dispatcher [employer] EDDheeraj Ibarra MD MD rn Baxter, Heather, RN RN hb Yen Pearson, RN RN ko1 Swati Rizo 5 Kapil Tsang 4
[2023-11-29] MEDS ORDERED: NICOTINE 21 MG/PAT TD ONE (16:18)
[2023-11-29] MEDS ORDERED: ONDANSETRON 4 MG/2 ML VIAL ONE (16:18)
[2023-11-29] MEDS ORDERED: MORPHINE 2 MG/ML SYR ONE (16:19)
[2023-11-29] MEDS ORDERED: LORazepam 2 MG/ML VIAL IV PRN (16:43)
[2023-11-29] MEDS ORDERED: ALBUTEROL 2.5 MG/3 ML NEB SOL NEB PRN (16:43)
[2023-11-29] MEDS ORDERED: FLUMAZENIL 0.1 MG/ML (5 mL VIAL) IV PRN (16:43)
[2023-11-29] MEDS ORDERED: SODIUM CHLORIDE 0.9% 10ML INJ IV PRN (16:51)
--- NOTE | 2023-11-29 16:58 | P.HP ---
Certification for Inpatient Patient admitted to: Inpatient With expected LOS: <2 Midnights Patient will require the following post-hospital care: None Practitioner: I am a practitioner with admitting privileges, knowledge of patient current condition, hospital course, and medical plan of care. Services: Services provided to patient in accordance with Admission requirements found in Title 42 Section 412.3 of the Code of Federal Regulations <Tyler Raines - Last Filed: 11/29/23 17:58> Patient History Date of Service: 11/29/23 Reason for admission: EtOH withdrawal, COPD History of Present Illness: Mr. Briones 53-year-old male patient with a history of COPD, hypertension and EtOH abuse presented to the emergency room via ambulatory with complaints of COPD exacerbation and withdrawal. Patient's spouse helping with the history. Patient reports that he is not eating or drinking well for last few days, he stopped drinking alcohol yesterday because he wanted to quit. He reports of nausea, anorexia, and shaking since this morning. Patient reports that he is symptoms are similar to the previous alcohol withdrawals. Negative for any blood in the stool or hematemesis. Positive for abdominal cramping intermittently. Patient reported mild shortness of breath, he reported he has been using the breathing treatments for his COPD. Patient reports his last drink was yesterday. Patient's symptoms are moderate to severe. ED course blood pressure 140/105, pulse 118, respiration 18, temperature 97.4, pulse ox 96%. Pain 10 out of 10. EKG showing sinus tachycardia. Laboratory evaluations CBC is reassuring, metabolic panel with elevated AST 125, ALT 112. Elevated ethanol level 155,Chest x-ray unremarkable. Patient received normal saline 1 L bolus and diazepam 10 mg IV x 1 in the emergency room. Admitting the patient with a diagnosis of EtOH withdrawal and COPD. 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 - Family History Mother -: Diabetes, Cancer Notes: colon cancer Father -: Lung disease Notes: COPD - Social History Smoking Status: Current every day smoker ([id number] cigarette smoker) Smoking therapy provided: Yes Patient receptive to therapy: Yes Alcohol use: Yes CD- Drugs: No Caffeine use: Yes Place of Residence: Home <Tyler Raines - Last Filed: 11/29/23 17:58> Date of Service: 11/30/23 <Selam Anne - Last Filed: 11/30/23 07:23> Allergies lisinopril Allergy (Verified 04/26/22 13:11) Shortness of breath BC powder Allergy (Mild, Uncoded 04/26/22 13:10) Hives Lisinopril Allergy (Mild, Uncoded 04/26/22 13:10) Shortness of breath Home Medications: predniSONE [Prednisone*] 10 mg PO DAILY #30 tab 04/28/22 Budesonide/Formoterol Fumarate [Symbicort 160-4.5 Mcg Inhaler] 2 puff IH DAILY 06/23/23 Spironolactone [Aldactone*] 25 mg PO DAILY 06/23/23 Tiotropium [place] [Spiriva] 2 puff IH DAILY 06/23/23 Review of Systems 10-point ROS is otherwise unremarkable <Tyler Raines - Last Filed: 11/29/23 17:58> Physical Examination - Physical Exam General: Alert, Oriented x3 HEENT: Atraumatic, Normocephalic Neck: Supple, 2+ carotid pulse no bruit Respiratory: Clear to auscultation bilaterally, Normal air movement Cardiovascular: No edema, Normal pulses, Regular rate/rhythm, Normal S1 S2, Other (Sinus tachycardia) Capillary refill: <2 Seconds Gastrointestinal: Normal bowel sounds, Soft and benign, Other (Diffuse abdominal pain) Musculoskeletal: No clubbing, No swelling Integumentary: No rashes, No breakdown, No warmth, Other (Flushed face) Neurological: Normal speech, Normal tone, Normal affect - Studies Laboratory Data (last 24 hrs) 11/29/23 11/29/23 11/29/23 14:20 14:20 14:20 WBC 8.50 Hgb 15.8 Hct 46.5 Plt Count 289 PT 10.6 INR 0.96 APTT 32.4 Sodium 136 Potassium 4.3 BUN 6 L Creatinine 0.68 L Glucose 88 Total Bilirubin 0.6 AST 125 H ALT 112 H Alkaline Phosphatase 75 Lipase 38 11/29/23 14:20 WBC Hgb Hct Plt Count PT INR APTT Sodium 136 Potassium 4.3 BUN 6 L Creatinine 0.68 L Glucose 90 Total Bilirubin 0.6 AST 123 H ALT 111 H Alkaline Phosphatase 83 Lipase <Tyler Raines - Last Filed: 11/29/23 17:58> - Studies Laboratory Data (last 24 hrs) 11/29/23 11/29/23 11/29/23 14:20 14:20 14:20 WBC 8.50 Hgb 15.8 Hct 46.5 Plt Count 289 PT 10.6 INR 0.96 APTT 32.4 Sodium 136 Potassium 4.3 BUN 6 L Creatinine 0.68 L Glucose 88 Total Bilirubin 0.6 AST 125 H ALT 112 H Alkaline Phosphatase 75 Lipase 38 11/29/23 14:20 WBC Hgb Hct Plt Count PT INR APTT Sodium 136 Potassium 4.3 BUN 6 L Creatinine 0.68 L Glucose 90 Total Bilirubin 0.6 AST 123 H ALT 111 H Alkaline Phosphatase 83 Lipase <Selam Anne Naomi - Last Filed: 11/30/23 07:23> Assessment and Plan - Problems (Diagnosis) (1) ETOH abuse Current Visit: Yes Status: Acute (2) Cigarette nicotine dependence Current Visit: Yes Status: Acute (3) COPD (chronic obstructive pulmonary disease) Onset Date: 02/11/18 Current Visit: No Status: Chronic Qualifiers: COPD type: chronic bronchitis (4) HTN (hypertension) Onset Date: 02/11/18 Current Visit: No Status: Chronic Qualifiers: Hypertension type: primary hypertension Qualified Code(s): I10 - Essential (primary) hypertension - Plan EtOH withdrawal Cigarette nicotine dependence COPD Hypertension * Patient was admitted with symptoms of EtOH withdrawal moderate to severe nature, patient's last drink was yesterday. Ethanol level 155, AST 125, ALT 112. Started on EtOH withdrawal protocol. Alcohol cessation discussed patient is willing to quit. Social service consult for possible alcohol rehab admission and AAA. * Ativan, thiamine, multivitamin, IV fluid, telemetry monitoring, monitor and replete electrolytes * Continue current home medication * Monitor vital signs closely * Pulmonology consulted Dr. Hogan for the management of COPD * Sickle to cessation discussed patient is willing to quit CODE STATUSfull code DVT prophylaxisLovenox Dietcardiac Discharge Plan: Home Plan to discharge in: 48 Hours - Advance Directives Does patient have a Living Will: No Does patient have a Durable POA for Healthcare: No - Code Status/Comfort Care Code Status Assessed: Yes (Full code) Code Status: Full Code Physician Review: Patient Assessed, Agree with Above Assessment and Plan Critical Care: No Time Spent Managing Pts Care (In Minutes): 55 (Minutes) <Tyler Raines - Last Filed: 11/29/23 17:58> - Plan Pt seen and examined. I agree with the note by the SLUNK SKINNER. Pt is a 53 yo male with past medical history of Htn, COPD and alcoholism who presents with alcohol withdrawal symptoms. He has been binging on alcohol over the past few days. Pt stopped drinking yesterday. He stopped drinky by himself. Pt started having abd craamp, SOB. This made him come to the ER. On admission, lab studie show WBC 8.5, Hgb 15.8, K 4.3, Cr 0.68. CXR is unremarkable. Er physician gave Valium 10mg and consulted medicine for admission. At bedside, pt is in NAD. ROS is sigificant for SOB with exertion. A/P Alcohol withdrawal symptoms: Will continue CIWA protocol with banana bag, librium and telemetry. Htn: Continue home med Hx of COPD: stable. Not in exacerbation. Will continue prn duoneb and oxygen DVT ppx: SCD Code: full Dispo: Low threshold to transfer pt to the ICU <Selam Anne - Last Filed: 11/30/23 07:23>
[2023-11-29] MEDS: LORazepam 2 MG/ML VIAL IV SCH ×2 (17:48→21:20)
[2023-11-29] MEDS: IPRATROPIUM BROM 0.5MG/2.5ML NEB SCH (19:57)
[2023-11-30] MEDS: LORazepam 2 MG/ML VIAL IV SCH ×7 (01:00→19:42)
[2023-11-30] MEDS: IPRATROPIUM BROM 0.5MG/2.5ML NEB SCH ×4 (01:35→19:49)
[2023-11-30] MEDS: FOLIC ACID 1 MG TABLET PO SCH (07:49)
[2023-11-30] MEDS: AMLODIPINE 10 MG TAB PO SCH (07:49)
[2023-11-30 08:53] LABS: Albumin 3.1 g/dL (3.4-5.0); Magnesium 1.9 mg/dL (1.6-2.4); Phosphorus 2.5 mg/dL (2.5-4.9); Potassium 3.7 mEq/L (3.5-5.1); Protein, Total 6.4 g/dL (6.4-8.2); Thyroid Stimulating Hormone 1.31 uIU/mL (0.358-3.740)
[2023-11-30] MEDS ORDERED: DULERA 100/5 (MOMETASONE/FORMOTEROL) INHALER IH SCH (09:00)
[2023-11-30] MEDS ORDERED: FOLIC ACID 1 MG, MULTIVITAMINS INJ 10 ML, THIAMINE HCL 100 MG in NA CHLORIDE 0.9% 1,000 ML IV SCH (09:00)
[2023-11-30] MEDS ORDERED: THIAMINE HCL 100 MG TABLET PO SCH (09:00)
[2023-11-30] MEDS: PANTOPRAZOLE 40 MG INJ IVP SCH (09:22)
[2023-11-30] MEDS: ENOXAPARIN 40 MG/0.4 ML SQ SCH (09:22)
[2023-11-30] MEDS: MULTIVITAMIN TAB PO SCH (09:22)
[2023-11-30] MEDS: TIOTROPIUM 5 SPRAYS/INHALER IH SCH (09:23)
[2023-11-30] MEDS: FOLIC ACID 1 MG, MULTIVITAMINS INJ 10 ML, THIAMINE HCL 100 MG in NA CHLORIDE 0.9% 1,000 ML IV SCH (09:23)
[2023-11-30 09:45] LABS: Absolute Lymphocytes (CBC) 1.6 K/uL (0.7-4.9); Hematocrit 40.2 % (39.6-49.0); Lymphocytes % 23.2 % (15.3-44.8); MCV 100.3 fL (80-100); MPV 7.1 fL (7.6-11.3); Platelets 246 thou/uL (152-406); RBC Red Blood Cell Count 4.01 M/uL (4.33-5.43)
--- NOTE | 2023-11-30 09:53 | P.PN ---
Subjective Date of Service: 11/30/23 Chief Complaint: EtOH withdrawal, COPD resting with eyes closed, responds to verbal - Physical Exam General: Alert, Oriented x3 HEENT: Atraumatic, Normocephalic Neck: Supple, 2+ carotid pulse no bruit Respiratory: Clear to auscultation bilaterally, Normal air movement Cardiovascular: No edema, Normal pulses, Regular rate/rhythm, Normal S1 S2, Other (Sinus tachycardia) Capillary refill: <2 Seconds Gastrointestinal: Normal bowel sounds, Soft and benign, Musculoskeletal: No clubbing, No swelling Integumentary: No rashes, No breakdown, No warmth, Other (Flushed face) Neurological: Normal speech, Normal tone, Normal affect <Julia Mclaughlin - Last Filed: 11/30/23 13:50> Date of Service: 11/30/23 <Selam Anne - Last Filed: 11/30/23 19:44> Review of Systems per HPI <Julia Mclaughlin - Last Filed: 11/30/23 13:50> Physical Examination - Vital Signs Temperature: 97.9 F Blood Pressure: 159/90 Pulse: 100 Respirations: 20 Pulse Ox (%): 96 - Studies Laboratory Data (last 24 hrs) 11/29/23 11/29/23 11/29/23 14:20 14:20 14:20 WBC 8.50 Hgb 15.8 Hct 46.5 Plt Count 289 PT 10.6 INR 0.96 APTT 32.4 Sodium 136 Potassium 4.3 BUN 6 L Creatinine 0.68 L Glucose 88 Total Bilirubin 0.6 AST 125 H ALT 112 H Alkaline Phosphatase 75 Lipase 38 11/29/23 14:20 WBC Hgb Hct Plt Count PT INR APTT Sodium 136 Potassium 4.3 BUN 6 L Creatinine 0.68 L Glucose 90 Total Bilirubin 0.6 AST 123 H ALT 111 H Alkaline Phosphatase 83 Lipase <Julia Mclaughlin - Last Filed: 11/30/23 13:50> Assessment And Plan - Plan Assessment plan Alcohol withdrawal Alcohol abuse Sinus tachycardia CIWA protocol, as needed Ativan Telemetry Seizure precautions Started on EtOH withdrawal protocol. Alcohol cessation discussed patient is willing to quit. Social service consult for possible alcohol rehab admission and AAA. Ativan, thiamine, multivitamin, IV fluid, telemetry monitoring, monitor and replete electrolytes Abdominal pain Transaminitis AST 125, 71 ALT 112, 85 Tobacco use COPD stable O2 2 L keep sats greater than 90%, as needed nebs Pulmonology consulted Dr. Hogan for the management of COPD Education for tobacco cessation discussed patient is willing to quit Essential hypertension uncontrolled Resume home antihypertensives Full code Diet cardiac DVT Lovenox Discharge Plan: Home Physician Review: Patient Assessed, Agree with Above Assessment and Plan Critical Care: No Time Spent Managing PTS Care (In Minutes): 35 <Julia Mclaughlin - Last Filed: 11/30/23 13:50> - Plan Pt seen and examined. I agree with the note by the DESKTOP PUBLISHING ASSOCIATE. Continue CIWA protocol. Follow CT abd/pelvis for the abdominal pain. <Selam Anne - Last Filed: 11/30/23 19:44>
[2023-11-30 13:47] LABS: Blood Morphology Comment NOT SEEN (NOT SEEN); Platelet Estimate ADEQ; White Blood Cell Scan OK (OK)
[2023-11-30] MEDS ORDERED: ALBUTEROL 2.5 MG/3 ML NEB SOL NEB PRN (15:01)
[2023-11-30] MEDS: NICOTINE 21 MG/PAT TD SCH (15:56)
--- NOTE | 2023-11-30 16:52 | P.CNS ---
Date of Consult: 11/30/23 Reason for Consult: Alcohol withdrawal COPD Chief Complaint: EtOH withdrawal, COPD History of Present Illness: Patient is 53 years of age with a history of COPD hypertension alcohol abuse admitted with DTs not been eating and drinking for the past few days stopped drinking alcohol a day ago reports nausea vomiting shaking spells been similar to his DTs Patient also been complaining of generalized abdominal tenderness since yesterday Allergies lisinopril Allergy (Verified 04/26/22 13:11) Shortness of breath BC powder Allergy (Mild, Uncoded 04/26/22 13:10) Hives Lisinopril Allergy (Mild, Uncoded 04/26/22 13:10) Shortness of breath Home Medications: predniSONE [Prednisone*] 10 mg PO DAILY #30 tab 04/28/22 Budesonide/Formoterol Fumarate [Symbicort 160-4.5 Mcg Inhaler] 2 puff IH DAILY 06/23/23 Spironolactone [Aldactone*] 25 mg PO DAILY 06/23/23 Tiotropium [place] [Spiriva] 2 puff IH DAILY 06/23/23 - Past Medical/Surgical History Diabetic: No -: Hypertension -: COPD on chronic steroids/home O2 -: Tobacco abuse -: Alcohol abuse -: GERD -: Obesity -: BUD -: 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 - Family History Mother Medical History: Diabetes, Cancer Notes: colon cancer Father Medical History: Lung disease Notes: COPD - Social History Smoking Status: Current every day smoker Alcohol use: Yes CD- Drugs: No Caffeine use: Yes Place of Residence: Home Review of Systems is unable to be obtained Physical Examination Temp Pulse Resp BP Pulse Ox 97.9 F 100 H 20 159/90 H 96 11/30/23 13:51 11/30/23 13:51 11/30/23 13:51 11/30/23 13:51 11/30/23 13:51 General: Alert, Delirious Respiratory: Clear to auscultation bilaterally Cardiovascular: No edema, Regular rate/rhythm Gastrointestinal: Normal bowel sounds, Tenderness (Planing of generalized abdominal tenderness) - Problems (1) Alcohol withdrawal delirium Current Visit: Yes Status: Acute Plan: Patient is 53 years of age with a history of alcoholism admitted with delirium also complaining of generalized abdominal pain he has significant tenderness with rebound labs reviewed abnormal LFTs ordered amylase lipase for the possibility of pancreatitis and a KUB
--- NOTE | 2023-11-30 16:53 | EKG ---
Test Date: 2023-11-29 Test Time: 15:07:57 Truck Mechanic: EDU MEASUREMENT RESULTS: Intervals: Rate: 87 UT: 136 QRSD: 100 QT: 412 QTc: 495 [place]: P: 72 UT: 136 QRS: 89 T: 86 INTERPRETIVE STATEMENTS: Normal sinus rhythm Incomplete right bundle branch block Prolonged QT Abnormal ECG Compared to ECG 11/18/2023 18:58:52 Prolonged QT interval now present ST (T wave) deviation no longer present Electronically Signed On 11-30-23 16:51:21 SAFEMAKER by Rosalino Albert
[2023-11-30] MEDS ORDERED: LABETALOL 20 MG/4ML SYRINGE IV PRN (17:52)
[2023-11-30] MEDS: GABAPENTIN 100 MG CAP PO SCH ×2 (18:13→20:43)
[2023-11-30] MEDS: THIAMINE 200 MG/2 ML INJ IVP SCH ×2 (18:13→20:43)
[2023-11-30] MEDS: DULERA 100/5 (MOMETASONE/FORMOTEROL) INHALER IH SCH (19:47)
--- NOTE | 2023-11-30 21:04 | RAD REPORT ---
EXAM DESCRIPTION: RAD - Abdomen 1 View (KUB) - 11/30/2023 5:47 pm CLINICAL HISTORY: Generalized abdominal tenderness COMPARISON: None available TECHNIQUE: Single AP view of the abdomen. FINDINGS: Residual contrast opacifying most of the colon somewhat limits evaluation. Nonobstructive bowel gas pattern. No air-fluid levels, free air, or pneumatosis. No suspicious calcifications. No significant bony abnormality. IMPRESSION: Nonobstructive bowel gas pattern. Residual colonic contrast.
--- NOTE | 2023-11-30 21:08 | RAD REPORT ---
EXAM DESCRIPTION: CT - Abdomen Pelvis W Contrast - 11/30/2023 6:59 pm CLINICAL HISTORY: Abdominal pain COMPARISON: Abdomen Pelvis W Contrast dated 11/24/2022; Abdomen Pelvis W Contrast dated 04/26/2022 ; Abdomen Pelvis W Contrast dated 02/16/2022; Abdomen Pelvis W Contrast dated 11/14/2018 TECHNIQUE: Thin cut axial CT imaging of the abdomen and pelvis was performed following intravenous a dministration of 100 mL Isovue 300. Multiplanar reformats were generated and reviewed. All CT scans are performed using dose optimization technique as appropriate and may include automated exposure control or mA/KV adjustment according to patient size. FINDINGS: No suspicious findings in the lung bases. The liver shows diffuse hepatic parenchymal hypoattenuation suggesting steatosis. Adrenal glands, spl een, and pancreas show no suspicious findings. Gallbladder and biliary tree are also without suspicio us finding. Symmetric renal function is seen with no hydronephrosis or suspicious renal mass. Nonobstructing left upper pole 4 mm calculus, stable. No dilated bowel loops or bowel wall thickening. Appendix is unremarkable. No free air, free fluid or inflammatory stranding. No hernia, mass or bulky lymphadenopathy. The urinary bladder is without sig nificant finding. No suspicious bony findings. IMPRESSION: No acute intra-abdominal process. Diffuse hepatic steatosis. Nonobstructing left upper renal pole 4 mm calculus, stable.
[2023-12-01] MEDS: LORazepam 2 MG/ML VIAL IV SCH ×3 (00:11→09:06)
[2023-12-01] MEDS: IPRATROPIUM BROM 0.5MG/2.5ML NEB SCH ×2 (01:38→07:31)
[2023-12-01 07:04] LABS: Absolute Lymphocytes (CBC) 1.5 K/uL (0.7-4.9); Lymphocytes % 25.9 % (15.3-44.8); MCV 100.8 fL (80-100); MPV 7.3 fL (7.6-11.3); Platelets 219 thou/uL (152-406); RBC Red Blood Cell Count 3.97 M/uL (4.33-5.43)
[2023-12-01 07:22] LABS: Bilirubin Total 0.8 mg/dL (0.2-1.0); Phosphorus 3.4 mg/dL (2.5-4.9); Potassium 3.5 mEq/L (3.5-5.1); Protein, Total 6.3 g/dL (6.4-8.2)
[2023-12-01] MEDS: NICOTINE 21 MG/PAT TD SCH (08:57)
[2023-12-01] MEDS: FOLIC ACID 1 MG TABLET PO SCH (08:59)
[2023-12-01] MEDS: GABAPENTIN 100 MG CAP PO SCH ×3 (08:59→19:58)
[2023-12-01] MEDS: ENOXAPARIN 40 MG/0.4 ML SQ SCH (08:59)
[2023-12-01] MEDS: THIAMINE 200 MG/2 ML INJ IVP SCH (08:59)
[2023-12-01] MEDS ORDERED: NICOTINE 21 MG/PAT TD SCH (09:00)
[2023-12-01] MEDS: AMLODIPINE 10 MG TAB PO SCH (09:00)
[2023-12-01] MEDS: FOLIC ACID 1 MG, MULTIVITAMINS INJ 10 ML, THIAMINE HCL 100 MG in NA CHLORIDE 0.9% 1,000 ML IV SCH (09:04)
[2023-12-01] MEDS: TIOTROPIUM 5 SPRAYS/INHALER IH SCH (09:05)
[2023-12-01] MEDS: DULERA 100/5 (MOMETASONE/FORMOTEROL) INHALER IH SCH ×2 (09:06→19:00)
--- NOTE | 2023-12-01 09:16 | P.PN ---
Subjective Date of Service: 12/01/23 Chief Complaint: EtOH withdrawal, COPD reports generalized abdominal pain, hx ETOH abuse, mild tremors - Physical Exam General: Alert, Oriented x3 HEENT: Atraumatic, Normocephalic Neck: Supple, 2+ carotid pulse no bruit Respiratory: Clear to auscultation bilaterally, Normal air movement Cardiovascular: No edema, Normal pulses, Regular rate/rhythm, Normal S1 S2, Other (Sinus tachycardia) Capillary refill: <2 Seconds Gastrointestinal: Normal bowel sounds, Soft and benign, generalized abdominal tenderness Musculoskeletal: No clubbing, No swelling Integumentary: No rashes, No breakdown, No warmth, Other (Flushed face) Neurological: Normal speech, Normal tone, Normal affect Review of Systems per HPI Physical Examination - Vital Signs Temperature: 97.3 F Blood Pressure: 148/81 Pulse: 82 Respirations: 14 Pulse Ox (%): 98 Assessment And Plan - Plan Assessment plan Alcohol withdrawal Alcohol abuse Sinus tachycardia CIWA protocol, as needed Ativan Telemetry Seizure precautions Started on EtOH withdrawal protocol. Alcohol cessation discussed patient is willing to quit. Social service consult for possible alcohol rehab admission and AAA. Ativan, thiamine, multivitamin, IV fluid, telemetry monitoring, monitor and replete electrolytes Social service consulted for discharge planning resources Abdominal pain Transaminitis improving AST 125, 71-55 ALT 112, 85-71 KUB IMPRESSION: Nonobstructive bowel gas pattern. Residual colonic contrast ABD CT IMPRESSION: No acute intra-abdominal process. Diffuse hepatic steatosis. Nonobstructing left upper renal pole 4 mm calculus, stable. IV ceftriaxone added for empiric SBP Tobacco use COPD stable O2 2 L keep sats greater than 90%, as needed [facility] Pulmonology consulted Dr. Hogan for the management of COPD Education for tobacco cessation discussed patient is willing to quit Essential hypertension uncontrolled Resume home antihypertensives Full code Diet cardiac DVT Lovenox Discharge Plan: Home - Code Status/Comfort Care Code Status: Full Code Time Spent Managing PTS Care (In Minutes): 35
[2023-12-01] MEDS: PANTOPRAZOLE 40 MG INJ IVP SCH (10:43)
[2023-12-01] MEDS: MULTIVITAMIN TAB PO SCH (10:59)
[2023-12-01] MEDS ORDERED: DICYCLOMINE HCL 10 MG CAP PO PRN (12:06)
[2023-12-01] MEDS ORDERED: MORPHINE 4 MG/ML SYR IV PRN (12:06)
[2023-12-01] MEDS ORDERED: chlordiazePOXIDE HCl 5 MG CAP PO PRN (12:25)
[2023-12-01] MEDS ORDERED: IPRATROPIUM BROM 0.5MG/2.5ML NEB PRN (12:26)
--- NOTE | 2023-12-01 12:27 | P.PN ---
Subjective Date of Service: 12/01/23 Chief Complaint: EtOH withdrawal, COPD Subjective: Improving (Patient is improving doing well more alert responsive complaining of abdominal pain) Review of Systems Respiratory: Shortness of Breath Gastrointestinal: Abdominal Pain Physical Examination - Vital Signs Temperature: 98.5 F Blood Pressure: 120/71 Pulse: 101 Respirations: 16 Pulse Ox (%): 94 - Physical Exam General: Alert, In no apparent distress, Oriented x3 HEENT: Atraumatic Neck: Supple Respiratory: Clear to auscultation bilaterally Gastrointestinal: Tenderness (Generalized) Assessment And Plan - Current Problems (Diagnosis) (1) Alcohol withdrawal delirium Current Visit: Yes Status: Acute Plan: Patient's condition is improving labs and chemistries reviewed lipase is normal CT scan of the abdomen is unremarkable continue with gabapentin education doses adjusted changed to p.o. Librium patient is eating and drinking Ativan now as as needed continue with gabapentin is to p.o. thiamine vital signs are all stable Physician Review: Patient Assessed, Agree with Above Assessment and Plan
[2023-12-01] MEDS: MORPHINE 2 MG/ML SYR IV PRN ×2 (12:55→17:38)
[2023-12-01] MEDS: LORazepam 2 MG/ML VIAL IV PRN ×2 (14:20→22:23)
[2023-12-01] MEDS: CEFTRIAXONE 1,000 MG in NA CHLORIDE 0.9% 50 ML IVPB SCH (16:21)
[2023-12-01] MEDS ORDERED: SUCRALFATE 1GM/10ML UCUP FT SCH (16:30)
[2023-12-01] MEDS ORDERED: LORazepam 2 MG/ML VIAL IV SCH (17:00)
[2023-12-01] MEDS: SUCRALFATE 1GM/10ML UCUP PO SCH ×2 (17:39→19:58)
[2023-12-01] MEDS ORDERED: HYDROCODONE/APAP 10/325 TAB PO PRN (18:27)
[2023-12-01] MEDS ORDERED: chlordiazePOXIDE HCl 25 MG CAP PO ONE (18:42)
[2023-12-01] MEDS: THIAMINE HCL 100 MG TABLET PO SCH (19:57)
[2023-12-01] MEDS: chlordiazePOXIDE HCl 25 MG CAP PO SCH (23:52)
[2023-12-02] MEDS: LORazepam 2 MG/ML VIAL IV PRN ×2 (04:29→10:40)
[2023-12-02 05:52] LABS: Absolute Lymphocytes (CBC) 1.2 K/uL (0.7-4.9); Hematocrit 40.2 % (39.6-49.0); Lymphocytes % 18.3 % (15.3-44.8); MCV 99.8 fL (80-100); MPV 7.4 fL (7.6-11.3); Platelets 186 thou/uL (152-406); RBC Red Blood Cell Count 4.03 M/uL (4.33-5.43)
[2023-12-02] MEDS: chlordiazePOXIDE HCl 25 MG CAP PO SCH ×2 (05:55→12:19)
[2023-12-02 06:12] LABS: Potassium 3.2 mEq/L (3.5-5.1)
[2023-12-02 06:13] LABS: Bilirubin Total 0.6 mg/dL (0.2-1.0); Magnesium 1.6 mg/dL (1.6-2.4); Phosphorus 3.8 mg/dL (2.5-4.9); Protein, Total 6.1 g/dL (6.4-8.2)
--- NOTE | 2023-12-02 07:52 | RAD REPORT ---
EXAM DESCRIPTION: [facility] Single View12/02/2023 4:35 am CLINICAL HISTORY: Cough. COMPARISON: November 29, 2023 FINDINGS: The lungs appear clear of acute infiltrate. The heart is normal size IMPRESSION: No acute abnormalities displayed
--- NOTE | 2023-12-02 07:54 | P.PN ---
Subjective Date of Service: 12/02/23 Chief Complaint: EtOH withdrawal, COPD reports generalized abdominal pain, hx ETOH abuse, mild tremors, pain controlled treated with prn ativan, prn analgesics, - Physical Exam General: Alert, Oriented x3 HEENT: Atraumatic, Normocephalic Neck: Supple, 2+ carotid pulse no bruit Respiratory: Clear to auscultation bilaterally, Normal air movement Cardiovascular: No edema, Normal pulses, Regular rate/rhythm, Normal S1 S2, Other (Sinus tachycardia) Capillary refill: <2 Seconds Gastrointestinal: Normal bowel sounds, Soft and benign, generalized abdominal tenderness Musculoskeletal: No clubbing, No swelling Integumentary: No rashes, No breakdown, No warmth, Other (Flushed face) Neurological: Normal speech, Normal tone, Normal affect Review of Systems per HPI Physical Examination - Vital Signs Temperature: 98.6 F Blood Pressure: 136/96 Pulse: 95 Respirations: 18 Pulse Ox (%): 97 Assessment And Plan - Plan Assessment plan Alcohol withdrawal Alcohol abuse Sinus tachycardia CIWA protocol, as needed Ativan Telemetry Seizure precautions Started on EtOH withdrawal protocol. Alcohol cessation discussed patient is willing to quit. Social service consult for possible alcohol rehab admission and AAA. Ativan, thiamine, multivitamin, IV fluid, telemetry monitoring, monitor and replete electrolytes Social service consulted for discharge planning resources Abdominal pain Transaminitis improving AST 125, 71-55-36 ALT 112, 85-71-61 KUB IMPRESSION: Nonobstructive bowel gas pattern. Residual colonic contrast ABD CT IMPRESSION: No acute intra-abdominal process. Diffuse hepatic steatosis. Nonobstructing left upper renal pole 4 mm calculus, stable. IV ceftriaxone added for empiric SBP Hypokalemia Trend electrolytes replace as needed Tobacco use COPD stable O2 2 L keep sats greater than 90%, as needed nebs Pulmonology consulted Dr. Hogan for the management of COPD Education for tobacco cessation discussed patient is willing to quit Essential hypertension uncontrolled Resume home antihypertensives Full code Diet cardiac DVT Lovenox Discharge Plan: Home - Code Status/Comfort Care Code Status: Full Code Critical Care: No Time Spent Managing PTS Care (In Minutes): 35
[2023-12-02] MEDS ORDERED: MAGNESIUM SULFATE 1 gm IVPB 1 GM/100 ML BAG IV ONE (08:00)
[2023-12-02] MEDS ORDERED: POTASSIUM 25 MEQ EFFERV TAB PO ONE (08:30)
[2023-12-02] MEDS ORDERED: POTASSIUM CL SA 10 MEQ TAB PO ONE (09:00)
[2023-12-02] MEDS: CEFTRIAXONE 1,000 MG in NA CHLORIDE 0.9% 50 ML IVPB SCH (09:10)
[2023-12-02] MEDS: ENOXAPARIN 40 MG/0.4 ML SQ SCH (09:10)
[2023-12-02] MEDS: AMLODIPINE 10 MG TAB PO SCH (09:11)
[2023-12-02] MEDS: GABAPENTIN 100 MG CAP PO SCH ×2 (09:11→14:00)
[2023-12-02] MEDS: FOLIC ACID 1 MG TABLET PO SCH (09:11)
[2023-12-02] MEDS: SUCRALFATE 1GM/10ML UCUP PO SCH ×2 (09:11→10:41)
[2023-12-02] MEDS: THIAMINE HCL 100 MG TABLET PO SCH (09:11)
[2023-12-02] MEDS: DULERA 100/5 (MOMETASONE/FORMOTEROL) INHALER IH SCH (09:12)
[2023-12-02] MEDS: MULTIVITAMIN TAB PO SCH (09:12)
[2023-12-02] MEDS: NICOTINE 21 MG/PAT TD SCH (09:13)
[2023-12-02] MEDS: TIOTROPIUM 5 SPRAYS/INHALER IH SCH (09:13)
[2023-12-02 09:31] VITALS: O2SAT 97
--- NOTE | 2023-12-02 13:49 | P.DS ---
Admission Date: 11/29/23 Discharge Date: 12/02/23 Disposition: ROUTINE DISCHARGE Discharge Condition: GOOD Reason for Admission: EtOH withdrawal, COPD Brief History of Present Illness: Mr. Briones 53-year-old male patient with a history of COPD, hypertension and EtOH abuse presented to the emergency room via ambulatory with complaints of COPD exacerbation and withdrawal. Patient's spouse helping with the history. Patient reports that he is not eating or drinking well for last few days, he stopped drinking alcohol yesterday because he wanted to quit. He reports of nausea, anorexia, and shaking since this morning. Patient reports that he is symptoms are similar to the previous alcohol withdrawals. Negative for any blood in the stool or hematemesis. Positive for abdominal cramping intermittently. Patient reported mild shortness of breath, he reported he has been using the breathing treatments for his COPD. Patient reports his last drink was yesterday. Patient's symptoms are moderate to severe. ED course blood pressure 140/105, pulse 118, respiration 18, temperature 97.4, pulse ox 96%. Pain 10 out of 10. EKG showing sinus tachycardia. Laboratory evaluations CBC is reassuring, metabolic panel with elevated AST 125, ALT 112. Elevated ethanol level 155,Chest x-ray unremarkable. Patient received normal saline 1 L bolus and diazepam 10 mg IV x 1 in the emergency room. Admitting the patient with a diagnosis of EtOH withdrawal and COPD. - Physical Exam General: Alert, Oriented x3 HEENT: Atraumatic, Normocephalic Neck: Supple, 2+ carotid pulse no bruit Respiratory: Clear to auscultation bilaterally, Normal air movement Cardiovascular: No edema, Normal pulses, Regular rate/rhythm, Normal S1 S2, Other (Sinus tachycardia) Capillary refill: <2 Seconds Gastrointestinal: Normal bowel sounds, Soft and benign, Musculoskeletal: No clubbing, No swelling Integumentary: No rashes, No breakdown, No warmth, Other (Flushed face) Neurological: Normal speech, Normal tone, Normal affect Hospital Course: 53 year-old female patient presented with COPD exacerbation, alcohol withdrawal. Was noted to have elevated alcohol level . Was treated with as needed Ativan, nebulizers, O2, Condition improved with treatment plan. Stable for discharge to home, with follow-up appointment with primary care physician. Follow-up resources given for alcohol detox. CM discussed inpatient treatment, aggressive outpatient treatment, counseling services and AA meetings. CM called [facility] at [phone] to inquire about inpatient treatment facility in [place]. Per [facility], their inpatient treatment program is 30 days and pt must remain on site with no releases during their initial treatment/recovery. discussed alcohol/ tobacco cessation to prevent wosening alcohol related diseases such as cirrhosis, liver disease. PROBLEM: Alcohol withdrawal COPD exacerbation Elevated liver enzymes Nicotine dependence Hypertension Continue home medicines as previously prescribed GOAL: Clear understanding of disease process INSTRUCTIONS: Physician Discharge Instructions: -DC IV and DC home -Follow-up with PCP in 1 to 2 weeks -Please call Dr. Martin at [phone] if any questions regarding hospital stay -Please call nursing station at [phone] if any nursing or medication questions -Return to the emergency room if symptoms worsen Diet: ADA, low sodium Activity: Fall precautions DME: Date Ordered: Name of Company: [employer] Follow-up resources given for alcohol detox. CM discussed inpatient treatment, aggressive outpatient treatment, counseling services and AA meetings. CM called [facility] at [phone] to inquire about inpatient treatment facility in [place]. Per [facility], their inpatient treatment program is 30 days and pt must remain on site with no releases during their initial treatment/recovery. Date or Referral: IMMUNIZATION Influenza Vaccine Indicated: Influenza Vaccine Given: Date Given: Pneumonia Vaccine Indicated: Pneumonia Vaccine Given: Date Given: Vital Signs/Physical Exam: Temp Pulse Resp BP Pulse Ox 98.1 F 94 H 17 140/87 93 12/02/23 08:00 12/02/23 08:00 12/02/23 08:00 12/02/23 08:00 12/02/23 08:00 Laboratory Data at Discharge: WBC 6.80 thou/uL (4.3-10.9) 12/02/23 05:31 Hgb 13.7 g/dL (13.6-17.9) 12/02/23 05:31 Hct 40.2 % (39.6-49.0) 12/02/23 05:31 Plt Count 186 thou/uL (152-406) 12/02/23 05:31 PT 10.6 SECONDS (9.5-12.5) 11/29/23 14:20 INR 0.96 11/29/23 14:20 APTT 32.4 SECONDS (24.3-36.9) 11/29/23 14:20 Sodium 136 mEq/L (136-145) 12/02/23 05:31 Potassium 3.2 mEq/L (3.5-5.1) L 12/02/23 05:31 BUN 10 mg/dL (7-18) 12/02/23 05:31 Creatinine 0.66 mg/dL (0.70-1.30) L 12/02/23 05:31 Glucose 114 mg/dL (74-106) H 12/02/23 05:31 Phosphorus 3.8 mg/dL (2.5-4.9) 12/02/23 05:31 Magnesium 1.6 mg/dL (1.6-2.4) 12/02/23 05:31 Total Bilirubin 0.6 mg/dL (0.2-1.0) 12/02/23 05:31 AST 36 U/L (15-37) 12/02/23 05:31 ALT 61 U/L (16-61) 12/02/23 05:31 Alkaline Phosphatase 64 U/L (45-117) 12/02/23 05:31 Triglycerides 57 mg/dL (<150) 11/30/23 08:10 Cholesterol 203 mg/dL (<200) H 11/30/23 08:10 HDL Cholesterol 125 mg/dL (40-60) H 11/30/23 08:10 Cholesterol/HDL Ratio 1.62 11/30/23 08:10 Lipase 32 U/L (13-75) 11/30/23 Unknown Home Medications: predniSONE [Prednisone*] 10 mg PO DAILY #30 tab 04/28/22 Budesonide/Formoterol Fumarate [Symbicort 160-4.5 Mcg Inhaler] 2 puff IH DAILY 06/23/23 Spironolactone [Aldactone*] 25 mg PO DAILY 06/23/23 Tiotropium [place] [Spiriva] 2 puff IH DAILY 06/23/23 Amlodipine [Norvasc*] 10 mg PO DAILY #30 tab 12/02/23 Hydrocodone 10/APAP 325 [[place] 10/325*] 1 tab PO Q6H PRN #30 tab 12/02/23 Multivit,Ther Iron,Ca,FA & Min [Centrum Tablet*] 1 tab PO DAILY #30 tab 12/02/23 Sucralfate [Carafate -Tab] 1 gm PO ACHS #120 tab 12/02/23 chlordiazePOXIDE HCl [Chlordiazepoxide HCl] 10 mg PO QID #70 cap 12/02/23 New Medications: Sucralfate [Carafate -Tab] 1 gm PO ACHS #120 tab Multivit,Ther Iron,Ca,FA & Min [Centrum Tablet*] 1 tab PO DAILY #30 tab chlordiazePOXIDE HCl [Chlordiazepoxide HCl] 10 mg PO QID #70 cap Hydrocodone 10/APAP 325 [[place] 10/325*] 1 tab PO Q6H PRN #30 tab PRN Reason: Pain Scale 5-7 (Moderate) Amlodipine [Norvasc*] 10 mg PO DAILY #30 tab Physician Discharge Instructions: 53 year-old female patient presented with COPD exacerbation, alcohol withdrawal. Was noted to have elevated alcohol level . Was treated with as needed Ativan, nebulizers, O2, Condition improved with treatment plan. Stable for discharge to home, with follow-up appointment with primary care physician. Follow-up resources given for alcohol detox. CM discussed inpatient treatment, aggressive outpatient treatment, counseling services and AA meetings. CM called [facility] at [phone] to inquire about inpatient treatment facility in [place]. [facility], their [facility] treatment [facility] is 30 days and pt must remain on site with no releases during their initial treatment/recovery. discussed alcohol/ tobacco cessation to prevent wosening alcohol related diseases such as cirrhosis, liver disease. PROBLEM: Alcohol withdrawal COPD exacerbation Elevated liver enzymes Nicotine dependence Hypertension Continue home medicines as previously prescribed GOAL: Clear understanding of disease process INSTRUCTIONS: Physician Discharge Instructions: -DC IV and DC home -Follow-up with PCP in 1 to 2 weeks -Please call Dr. Martin at [phone] if any questions regarding hospital stay -Please call nursing station at [phone] if any nursing or medication questions -Return to the emergency room if symptoms worsen Diet: ADA, low sodium Activity: Fall precautions [employer] Follow-up resources given for alcohol detox. CM discussed inpatient treatment, aggressive outpatient treatment, counseling services and AA meetings. CM called [facility] at [phone] to inquire about inpatient treatment facility in [place]. Per [facility], their inpatient treatment program is 30 days and pt must remain on site with no releases during their initial treatment/recovery. Followup: Adrianna Michaels DO, DO [Primary Care Provider] - 1-2 Weeks Time spent managing pt's care (in minutes): 55
[2023-12-02 14:31] VITALS: BP 138/91; TEMP 98.5
== END 2023-12-02 15:48 | disposition home or self-care (01) | DRG 897 ==
LOC: ER 13:15 → ERHOLD 16:59 → 2ND 17:17
PROVIDERS: ADMIT Hospitalist; ATTEND Hospitalist
DX: F10.231 Alcohol dependence with withdrawal delirium (principal); J44.1 Chronic obstructive pulmonary disease with (acute) exacerbation; I10 Essential (primary) hypertension; K21.9 Gastro-esophageal reflux disease without esophagitis; F17.210 Nicotine dependence, cigarettes, uncomplicated; R74.01 Elevation of levels of liver transaminase levels; R00.0 Tachycardia, unspecified; Z88.8 Allergy status to other drugs, medicaments and biological substances; Z79.52 Long term (current) use of systemic steroids; Z79.51 Long term (current) use of inhaled steroids; Z79.899 Other long term (current) drug therapy; Z89.022 Acquired absence of left finger(s); Y90.6 Blood alcohol level of 120-199 mg/100 ml
CPT/HCPCS: 36415; 71045; 74018; 74177; 80048; 80053; 80061; 80076; 82077; 83690; 83735; 83880; 84100; 84439; 84443; 84484; 85025; 85610; 85730; 87040; 93005; 94640; 96361; 96374; 96375; 99285; C9113; J0696; J1650; J2270; J2405; J3360; J3411; J3475; J3535; J7030; J7644; Q9967

== ENCOUNTER → 2023-12-06 | Emergency (ER) | payer OTHER ==
[~2023-12-06] MED LIST changes: +HYDROCODONE/APAP 7.5/325 MG TAB ONE; -KETOROLAC 30 MG/ML INJ ONE; -LORazepam 2 MG/ML VIAL ONE; -NA CHLORIDE 0.9% 1,000 ML ONE
--- OUTSIDE RECORDS SUMMARY | 2023-12-06 17:13 | XMS REPORT | Continuity of Care Document ---
Author Name Unknown Address [address] [place] [address] [facility] Address 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 Name Role Phone JOHN SANDRA Primary Care Physician Unavailab CHRISTY Mota Attending Clinician Unavailable Christy Holliday MD Attending Clinician [phone] JAC NAVARRO Attending Clinician Unavailable Jac Navarro MD Attending Clinician [phone] DARIEN LOBO Attending Clinician Unavailable MARIA ELENA CHAN MEDICAL Attending George akins Unavailable MELINDA MACIEL Attending Clinician Unavailable Melinda Maciel DO Attending Clinician [phone] DENISE SUNG Attending Clinician Unavailable KARLEY ADAMS Attending Clinician Unavailable JAC NAVARRO Admitting Clinician Unavailable MELINDA MACIEL Admitting Clinician Unavailable CHRISTY HOLLIDAY Admitting Clinician Unavailable Payers Payer Name Policy Type Policy Number Effective Date Expirati on Date Source GLORIA GONSALVES [employer]: [employer] [place] 94 [place] 9 [id number] 2023 00:00:00 Problems Condition Name Condition Details Condition Category Status Onset Date Resolution Date Last Treatment Date Treating Clinician Comments Source Acute exacerbati on of chronic obstructiv e pulmonary disease (COPD) Acute exacerbati on of chronic obstructiv e pulmonary disease (COPD) Disease Active 03-24 00:00: 00 [facility] Obesity (BMI 30-39.9) Obesity (BMI 30-39.9) Disease Active 03-24 00:00: 00 [facility] Allergies, Adverse Reactions, Alerts Allergy Name Allergy Type Status Severity Reaction(s) Onset Date Inactive Date Treating Clinician Comments Source Lisinopr il Propensi ty to adverse reaction s Active Anaphylaxis 03-24 00:00: 00 [facility] LISINOPR [place] DRUG INGREDI Active Anaphylaxis 03-24 00:00: 00 [facility] Social History Social Habit Start Date Stop Date Quantity Comments Source History of tobacco use Smokes tobacco daily [facility] function 2022-10-17 00:00:00 2022-10-17 00:00:00 [facility] Alcohol intake 2022-10-17 00:00:00 2022-10-17 00:00:00 4.29 /d [facility] Exposure to SARS-CoV-2 (event) 2022-10-04 00:00:00 2022-10-14 10:25:00 Not sure [facility] Tobacco use and exposure 2018-03-24 00:00:00 2018-03-24 00:00:00 User of smokeless tobacco [facility] Tobacco Comment 2018-03-24 00:00:00 2018-03-24 00:00:00 trying to quit [facility] Sex Ass[birth year] At 1970 00:00:00 1970 00:00:00 [facility] Smoking Status Start Date Stop Date Source Smokes tobacco daily 2018-03-24 00:00:00 [facility] Medications Ordered Medication Name Filled Medication Name Start Date Stop Date Current Medication? Ordering Clinician Indication Dosage Frequency Signature (SIG) Comments Components Source methylpredn isolone sod succ (SOLU-MEDRO L) injection 125 mg 2022-11 08:45: 00 10-27 20:44 :00 Yes 125mg 125 mg, Slow IV Push, ONCE, 1 dose, On Thu10/27/23 at 0245, STAT [facility] ipratropium -albuteroL (DUONEB) 0.5 mg-3 mg(2.5 mg base)/3 mL nebulizer solution 3 mL 2022-11 08:45: 00 10-27 20:44 :00 Yes 3mL 3 mL, Inhalation , ONCE NOW, 1 dose, On Thu10/27/23 at 0245, LAURYN [facility] diazePAM (VALIUM) tablet 10 mg 2022-11 07:45: 00 10-27 19:44 :00 Yes 10mg 10 mg, Oral, ONCE, 1 dose, On Thu10/27/23 at 0145, LAURYN [facility] levoFLOXaci n (LEVAQUIN) tablet 500 mg 2022-11 07:45: 00 10-27 19:44 :00 Yes 500mg 500 mg, Oral, ONCE, 1 dose, On Thu10/27/23 at 0145, LAURYN
Re ason for Anti-Infec tive: Empiric Non-Surgic al Prophylaxi s
Durat ion of therapy: Once (ED) [facility] iopamidol (ISOVUE 370-500 mL) injection 70 mL 2021-11 18:30: 00 10-14 18:30 :00 No [id number] 70mL 70 mL, Intravenou s, ONCE, 1 dose, On Thu10/14/22 at 1230, Routine [facility] methylpredn isolone sod succ (SOLU-MEDRO L) injection 125 mg 2021-11 18:00: 00 Yes 125mg 125 mg, Intravenou s, Q6H, First dose on Thu10/14/22 at 1200, Until Discontinu ed, Routine [facility] furosemide (LASIX) injection 40 mg 2021-11 17:45: 00 10-14 16:39 :00 No 40mg 40 mg, IV Push, ONCE, 1 dose, On Thu10/14/22 at 1145, LAURYN [facility] ipratropium -albuteroL (DUONEB) 0.5 mg-3 mg(2.5 mg base)/3 mL nebulizer solution 3 mL 2021-11 17:30: 00 10-14 16:41 :00 No 3mL 3 mL, Inhalation , ONCE, 1 dose, On Thu10/14/22 at 1130, Routine [facility] FENTanyl PF (SUBLIMAZE (PF)) injection 50 mcg 2021-11 16:45: 00 10-14 16:39 :00 No 50ug 50 mcg, Slow IV Push, ONCE, 1 dose, On Thu10/14/22 at 1045, Routine [facility] levoFLOXaci n 750 mg tablet 2021-11 00:00: 00 Yes [id number] 750mg Take 1 tablet by mouth every 24 (twenty-fo ur) hours. [facility] levoFLOXaci n 750 mg tablet 2021-11 00:00: 00 Yes [id number] 750mg Take 1 tablet by mouth every 24 (twenty-fo ur) hours. [facility] levoFLOXaci n 750 mg tablet 2021-11 00:00: 00 Yes [id number] 750mg Take 1 tablet by mouth every 24 (twenty-fo ur) hours. [facility] HYDROcodone -acetaminop hen (NORCO) 10-325 mg tablet 1 tablet 03-12 12:15: 00 03-12 11:21 :00 No 1{tbl} 1 tablet, Oral, ONCE, 1 dose, On Thu03/12/22 at 0715, Routine [facility] HYDROcodone -acetaminop hen 10-325 mg tablet 03-12 00:00: 00 03-20 04:59 :00 No [id number] 1{tbl} Take 1 tablet by mouth every 6 (six) hours as needed for Pain (scale 7-10) for up to 7 days. Indication s: acute pain [facility] ipratropium -albuteroL (DUONEB) 0.5 mg-3 mg(2.5 mg base)/3 mL nebulizer solution 3 mL 14 13:00: 00 Yes 3mL 3 mL, Inhalation , QID, First dose on Thu02/20/22 at 0800, Until Discontinu ed, Routine [facility] methylPREDN ISolone sod succ (SOLU-MEDRO L (PF)) injection 40 mg 02-20 11:45: 00 02-20 10:43 :00 No 40mg 40 mg, Intravenou s, ONCE, 1 dose, On Kym 02/20/22 at 0645, STAT [facility] foLIC acid (FOLATE) tablet 1 mg 02-20 11:45: 00 02-20 10:41 :00 No 1mg 1 mg, Oral, ONCE, 1 dose, On Kym 02/20/22 at 0645, LAURYN [facility] thiamine (VITAMIN B1) injection 100 mg 02-20 11:45: 00 02-20 10:43 :00 No 100mg 100 mg, Intravenou s, ONCE, 1 dose, On Kym 02/20/22 at 0645, LAURYN [facility] LORazepam (ATIVAN) injection 2 mg 02-20 11:45: 00 02-20 10:42 :00 No 2mg 2 mg, Slow IV Push, ONCE, 1 dose, On Thu02/20/22 at 0645, STAT [facility] ipratropium -albuteroL (DUONEB) 0.5 mg-3 mg(2.5 mg base)/3 mL nebulizer solution 3 mL 02-20 10:30: 00 02-20 09:34 :00 No 3mL 3 mL, Inhalation , ONCE, 1 dose, On Kym 02/20/22 at 0530, Routine [facility] budesonide- formoteroL 160-4.5 mcg/actuati on inhaler 02-20 00:00: 00 Yes [id number] 2{puff} Inhale 2 Puffs 2 (two) times daily. [facility] triamterene -hydrochlor othiazid 37.5-25 mg tablet 02-20 00:00: 00 Yes [id number] 1{tbl} Take 1 tablet by mouth daily. [facility] chlordiazeP OXIDE 25 mg capsule 02-20 00:00: 00 Yes [id number] 25mg Take 1 capsule by mouth every 6 (six) hours as needed for Anxiety, Agitation, Heart Rate => 100 or Detox. [facility] predniSONE 10 mg tablet 02-20 00:00: 00 Yes [id number] TAKE ONE TABLET BY MOUTH DAILY [facility] albuterol 90 mcg/actuati on inhaler 02-20 00:00: 00 Yes [id number] 2{puff} Inhale 2 Puffs every 4 (four) hours as needed for Wheezing or Shortness of Breath. [facility] albuterol 2.5 mg /3 mL (0.083 %) nebulizer solution 02-20 00:00: 00 Yes [id number] 2.5mg Inhale 3 mL every 4 (four) hours. May also nebulize one extra every 6 hours. [facility] budesonide- formoteroL 160-4.5 mcg/actuati on inhaler 02-20 00:00: 00 Yes [id number] 2{puff} Inhale 2 Puffs 2 (two) times daily. [facility] triamterene -hydrochlor othiazid 37.5-25 mg tablet 02-20 00:00: 00 Yes [id number] 1{tbl} Take 1 tablet by mouth daily. [facility] chlordiazeP OXIDE 25 mg capsule 02-20 00:00: 00 Yes [id number] 25mg Take 1 capsule by mouth every 6 (six) hours as needed for Anxiety, Agitation, Heart Rate => 100 or Detox. [facility] predniSONE 10 mg tablet 02-20 00:00: 00 Yes [id number] TAKE ONE TABLET BY MOUTH DAILY [facility] albuterol 90 mcg/actuati on inhaler 02-20 00:00: 00 Yes [id number] 2{puff} Inhale 2 Puffs every 4 (four) hours as needed for Wheezing or Shortness of Breath. [facility] albuterol 2.5 mg /3 mL (0.083 %) nebulizer solution 02-20 00:00: 00 Yes [id number] 2.5mg Inhale 3 mL every 4 (four) hours. May also nebulize one extra every 6 hours. [facility] budesonide- formoteroL 160-4.5 mcg/actuati on inhaler 02-20 00:00: 00 Yes [id number] 2{puff} Inhale 2 Puffs 2 (two) times daily. [facility] triamterene -hydrochlor othiazid 37.5-25 mg tablet 02-20 00:00: 00 Yes [id number] 1{tbl} Take 1 tablet by mouth daily. [facility] chlordiazeP OXIDE 25 mg capsule 02-20 00:00: 00 Yes [id number] 25mg Take 1 capsule by mouth every 6 (six) hours as needed for Anxiety, Agitation, Heart Rate => 100 or Detox. [facility] predniSONE 10 mg tablet 02-20 00:00: 00 Yes [id number] TAKE ONE TABLET BY MOUTH DAILY [facility] albuterol 90 mcg/actuati on inhaler 02-20 00:00: 00 Yes [id number] 2{puff} Inhale 2 Puffs every 4 (four) hours as needed for Wheezing or Shortness of Breath. [facility] albuterol 2.5 mg /3 mL (0.083 %) nebulizer solution 02-20 00:00: 00 Yes [id number] 2.5mg Inhale 3 mL every 4 (four) hours. May also nebulize one extra every 6 hours. [facility] budesonide- formoteroL 160-4.5 mcg/actuati on inhaler 02-20 00:00: 00 Yes [id number] 2{puff} Inhale 2 Puffs 2 (two) times daily. [facility] triamterene -hydrochlor othiazid 37.5-25 mg tablet 02-20 00:00: 00 Yes [id number] 1{tbl} Take 1 tablet by mouth daily. [facility] chlordiazeP OXIDE 25 mg capsule 02-20 00:00: 00 Yes [id number] 25mg Take 1 capsule by mouth every 6 (six) hours as needed for Anxiety, Agitation, Heart Rate => 100 or Detox. [facility] predniSONE 10 mg tablet 02-20 00:00: 00 Yes [id number] TAKE ONE TABLET BY MOUTH DAILY [facility] albuterol 90 mcg/actuati on inhaler 02-20 00:00: 00 Yes [id number] 2{puff} Inhale 2 Puffs every 4 (four) hours as needed for Wheezing or Shortness of Breath. [facility] albuterol 2.5 mg /3 mL (0.083 %) nebulizer solution 02-20 00:00: 00 Yes [id number] 2.5mg Inhale 3 mL every 4 (four) hours. May also nebulize one extra every 6 hours. [facility] budesonide- formoteroL 160-4.5 mcg/actuati on inhaler 02-20 00:00: 00 Yes [id number] 2{puff} Inhale 2 Puffs 2 (two) times daily. [facility] triamterene -hydrochlor othiazid 37.5-25 mg tablet 02-20 00:00: 00 Yes [id number] 1{tbl} Take 1 tablet by mouth daily. [facility] chlordiazeP OXIDE 25 mg capsule 02-20 00:00: 00 Yes [id number] 25mg Take 1 capsule by mouth every 6 (six) hours as needed for Anxiety, Agitation, Heart Rate => 100 or Detox. [facility] predniSONE 10 mg tablet 02-20 00:00: 00 Yes [id number] TAKE ONE TABLET BY MOUTH DAILY [facility] albuterol 90 mcg/actuati on inhaler 02-20 00:00: 00 Yes [id number] 2{puff} Inhale 2 Puffs every 4 (four) hours as needed for Wheezing or Shortness of Breath. [facility] albuterol 2.5 mg /3 mL (0.083 %) nebulizer solution 14 00:00: 00 Yes [id number] 2.5mg Inhale 3 mL every 4 (four) hours. May also nebulize one extra every 6 hours. [facility] albuterol 5 mg/mL nebulizer solution 07-16 14:02: 20 Yes 2.5mg Inhale 2.5 mg every 6 (six) hours as needed for Wheezing or Shortness of Breath. [facility] albuterol 5 mg/mL nebulizer solution 07-16 14:02: 20 Yes 2.5mg Inhale 2.5 mg every 6 (six) hours as needed for Wheezing or Shortness of Breath. [facility] albuterol 5 mg/mL nebulizer solution 07-16 14:02: 20 Yes 2.5mg Inhale 2.5 mg every 6 (six) hours as needed for Wheezing or Shortness of Breath. [facility] albuterol 5 mg/mL nebulizer solution 07-16 14:02: 20 Yes 2.5mg Inhale 2.5 mg every 6 (six) hours as needed for Wheezing or Shortness of Breath. [facility] albuterol 5 mg/mL nebulizer solution 07-16 14:02: 20 Yes 2.5mg Inhale 2.5 mg every 6 (six) hours as needed for Wheezing or Shortness of Breath. [facility] budesonide- formoterol 160-4.5 mcg/actuati on inhaler 07-16 00:00: 00 Yes 2{puff} Inhale 2 Puffs 2 (two) times daily. [facility] albuterol 2.5 mg /3 mL (0.083 %) nebulizer solution 07-16 00:00: 00 Yes 2.5mg Inhale 3 mL every 4 (four) hours as needed for Wheezing or Shortness of Breath. [facility] budesonide- formoterol 160-4.5 mcg/actuati on inhaler 07-16 00:00: 00 Yes 2{puff} Inhale 2 Puffs 2 (two) times daily. [facility] /3 mL (0.083 %) nebulizer solution 07-16 00:00: 00 Yes 2.5mg Inhale 3 mL every 4 (four) hours as needed for Wheezing or Shortness of Breath. [facility] budesonide- formoterol 160-4.5 mcg/actuati on inhaler 07-16 00:00: 00 Yes 2{puff} Inhale 2 Puffs 2 (two) times daily. [facility] albuterol 2.5 mg /3 mL (0.083 %) nebulizer solution 07-16 00:00: 00 Yes 2.5mg Inhale 3 mL every 4 (four) hours as needed for Wheezing or Shortness of Breath. [facility] budesonide- formoterol 160-4.5 mcg/actuati on inhaler 07-16 00:00: 00 Yes 2{puff} Inhale 2 Puffs 2 (two) times daily. [facility] albuterol 2.5 mg /3 mL (0.083 %) nebulizer solution 07-16 00:00: 00 Yes 2.5mg Inhale 3 mL every 4 (four) hours as needed for Wheezing or Shortness of Breath. [facility] budesonide- formoterol 160-4.5 mcg/actuati on inhaler 07-16 00:00: 00 Yes 2{puff} Inhale 2 Puffs 2 (two) times daily. [facility] albuterol 2.5 mg /3 mL (0.083 %) nebulizer solution 07-16 00:00: 00 Yes 2.5mg Inhale 3 mL every 4 (four) hours as needed for Wheezing or Shortness of Breath. [facility] triamterene -hydrochlor othiazide 37.5-25 mg per capsule 03-26 16:32: 14 Yes 1{capsu le} Take 1 capsule by mouth every morning. [facility] amLODIPine 10 mg tablet 03-26 16:32: 14 Yes 10mg Take 10 mg by mouth at bedtime. [facility] gabapentin 100 mg capsule 03-26 16:32: 14 Yes 100mg Take 100 mg by mouth 2 (two) times daily as needed ([facility] pain). [facility] foLIC acid 1 mg tablet 03-26 16:32: 14 Yes 1mg Take 1 mg by mouth daily. [facility] triamterene -hydrochlor othiazide 37.5-25 mg per capsule 03-26 16:32: 14 Yes 1{capsu le} Take 1 capsule by mouth every morning. [facility] amLODIPine 10 mg tablet 03-26 16:32: 14 Yes 10mg Take 10 mg by mouth at bedtime. [facility] gabapentin 100 mg capsule 03-26 16:32: 14 Yes 100mg Take 100 mg by mouth 2 (two) times daily as needed (MSK pain). [facility] foLIC acid 1 mg tablet 03-26 16:32: 14 Yes 1mg Take 1 mg by mouth daily. [facility] triamterene -hydrochlor othiazide 37.5-25 mg per capsule 03-26 16:32: 14 Yes 1{capsu le} Take 1 capsule by mouth every morning. [facility] amLODIPine 10 mg tablet 03-26 16:32: 14 Yes 10mg Take 10 mg by mouth at bedtime. [facility] gabapentin 100 mg capsule 03-26 16:32: 14 Yes 100mg Take 100 mg by mouth 2 (two) times daily as needed (MSK pain). [facility] foLIC acid 1 mg tablet 03-26 16:32: 14 Yes 1mg Take 1 mg by mouth daily. [facility] triamterene -hydrochlor othiazide 37.5-25 mg per capsule 03-26 16:32: 14 Yes 1{capsu le} Take 1 capsule by mouth every morning. [facility] amLODIPine 10 mg tablet 03-26 16:32: 14 Yes 10mg Take 10 mg by mouth at bedtime. [facility] gabapentin 100 mg capsule 03-26 16:32: 14 Yes 100mg Take 100 mg by mouth 2 (two) times daily as needed (MSK pain). [facility] foLIC acid 1 mg tablet 03-26 16:32: 14 Yes 1mg Take 1 mg by mouth daily. [facility] triamterene -hydrochlor othiazide 37.5-25 mg per capsule 03-26 16:32: 14 Yes 1{capsu le} Take 1 capsule by mouth every morning. [facility] amLODIPine 10 mg tablet 03-26 16:32: 14 Yes 10mg Take 10 mg by mouth at bedtime. [facility] gabapentin 100 mg capsule 03-26 16:32: 14 Yes 100mg Take 100 mg by mouth 2 (two) times daily as needed ([facility]K pain). [facility] foLIC acid 1 mg tablet 03-26 16:32: 14 Yes 1mg Take 1 mg by mouth daily. [facility] budesonide- formoterol 160-4.5 mcg/actuati on inhaler 03-26 00:00: 00 Yes 2{puff} Inhale 2 Puffs 2 (two) times daily. [facility] budesonide- formoterol 160-4.5 mcg/actuati on inhaler 03-26 00:00: 00 Yes 2{puff} Inhale 2 Puffs 2 (two) times daily. [facility] budesonide- formoterol 160-4.5 mcg/actuati on inhaler 03-26 00:00: 00 Yes 2{puff} Inhale 2 Puffs 2 (two) times daily. [facility] budesonide- formoterol 160-4.5 mcg/actuati on inhaler 03-26 00:00: 00 Yes 2{puff} Inhale 2 Puffs 2 (two) times daily. [facility] budesonide- formoterol 160-4.5 mcg/actuati on inhaler 2018-0 5-18 00:00: 00 Yes 2{puff} Inhale 2 Puffs 2 (two) times daily. [facility] Immunizations Ordered Immunization Name Filled Immunization Name Date Status Comments Source SARS-COV-2 COVID-19 PFIZER VACCINE 2021-02-03 00:00:00 Completed [facility] SARS-COV-2 COVID-19 PFIZER VACCINE 2021-02-03 00:00:00 Completed [facility] SARS-COV-2 COVID-19 PFIZER VACCINE 2021-02-03 00:00:00 Completed [facility] SARS-COV-2 COVID-19 PFIZER VACCINE 2021-01-13 00:00:00 Completed [facility] SARS-COV-2 COVID-19 PFIZER VACCINE 2021-01-13 00:00:00 Completed [facility] SARS-COV-2 COVID-19 PFIZER VACCINE 2021-01-13 00:00:00 Completed [facility] Pneumococcal Polysaccharide, PPSV23 (PNEUMOVAX) 2018-03-26 00:00:00 Completed [facility] Influenza Virus Vaccine Quad IM 3+ YRS 2018-03-26 00:00:00 Completed [facility] Pneumococcal Polysaccharide, PPSV23 (PNEUMOVAX) 2018-03-26 00:00:00 Completed [facility] Influenza Virus Vaccine Quad IM 3+ YRS 2018-03-26 00:00:00 Completed [facility] Pneumococcal Polysaccharide, PPSV23 (PNEUMOVAX) 2018-03-26 00:00:00 Completed [facility] Influenza Virus Vaccine Quad IM 3+ YRS 2018-03-26 00:00:00 Completed [facility] Pneumococcal Polysaccharide, PPSV23 (PNEUMOVAX) Unknown Completed [facility] Influenza Virus Vaccine Quad IM 3+ YRS Unknown Completed [facility] SARS-COV-2 COVID-19 PFIZER VACCINE Unknown Completed [facility] SARS-COV-2 COVID-19 PFIZER VACCINE Unknown Completed [facility] Pneumococcal Polysaccharide, PPSV23 (PNEUMOVAX) Unknown Completed [facility] Influenza Virus Vaccine Quad IM 3+ YRS Unknown Completed [facility] SARS-COV-2 COVID-19 PFIZER VACCINE Unknown Completed [facility] SARS-COV-2 COVID-19 PFIZER VACCINE Unknown Completed [facility] Vital Signs Vital Name Observation Time Observation Value Comments Whitney chang Systolic blood pressure 2023-11-11 02:00:00 127 mm[Hg] [facility] Diastolic blood pressure 2023-11-11 02:00:00 87 mm[Hg] [facility] Heart rate 2023-11-11 02:00:00 79 /min [facility] Respiratory rate 2023-11-11 02:00:00 20 /min [facility] Oxygen saturation in Arterial blood by Pulse oximetry 2023-11-11 02:00:00 98 /min [facility] Body temperature 2023-11-11 01:31:00 36.28 Debbie [facility] Body height 2023-11-11 01:31:00 162.6 cm [facility] Body weight 2023-11-11 01:31:00 79.379 kg [facility] BMI 2023-11-11 01:31:00 30.04 kg/m2 [facility] Systolic blood pressure 2023-10-27 06:54:00 133 mm[Hg] [facility] Diastolic blood pressure 2023-10-27 06:54:00 94 mm[Hg] [facility] Heart rate 2023-10-27 06:54:00 95 /min [facility] Body temperature 2023-10-27 06:54:00 36.44 Debbie [facility] Respiratory rate 2023-10-27 06:54:00 22 /min [facility] Body height 2023-10-27 06:54:00 162.6 cm [facility] Body weight 2023-10-27 06:54:00 78.472 kg [facility] BMI 2023-10-27 06:54:00 29.70 kg/m2 [facility] Oxygen saturation in Arterial blood by Pulse oximetry 2023-10-27 06:54:00 94 /min [facility] Systolic blood pressure 2022-10-14 19:43:00 111 mm[Hg] [facility] Diastolic blood pressure 2022-10-14 19:43:00 74 mm[Hg] [facility] Heart rate 2022-10-14 19:43:00 98 /min [facility] Body temperature 2022-10-14 19:43:00 36.39 Debbie [facility] Respiratory rate 2022-10-14 19:43:00 22 /min [facility] Oxygen saturation in Arterial blood by Pulse oximetry 2022-10-14 19:43:00 94 /min [facility] Body height 2022-10-14 16:13:00 162.6 cm [facility] Body weight 2022-10-14 16:13:00 81.647 kg [facility] BMI 2022-10-14 16:13:00 30.90 kg/m2 [facility] Systolic blood pressure 2022-03-12 10:13:00 119 mm[Hg] [facility] Diastolic blood pressure 2022-03-12 10:13:00 75 mm[Hg] [facility] Heart rate 2022-03-12 10:13:00 105 /min [facility] Body temperature 2022-03-12 10:13:00 37.28 Debbie [facility] Respiratory rate 2022-03-12 10:13:00 19 /min [facility] Body height 2022-03-12 10:13:00 162.6 cm [facility] Body weight 2022-03-12 10:13:00 99.791 kg [facility] BMI 2022-03-12 10:13:00 37.76 kg/m2 [facility] Oxygen saturation in Arterial blood by Pulse oximetry 2022-03-12 10:13:00 96 /min [facility] Systolic blood pressure 2022-02-20 11:57:00 155 mm[Hg] [facility] Diastolic blood pressure 2022-02-20 11:57:00 88 mm[Hg] [facility] Heart rate 2022-02-20 11:57:00 105 /min [facility] Respiratory rate 2022-02-20 11:57:00 18 /min [facility] Oxygen saturation in Arterial blood by Pulse oximetry 2022-02-20 11:57:00 100 /min [facility] Body temperature 2022-02-20 09:25:00 37 Debbie [facility] Body height 2022-02-20 09:25:00 162.6 cm [facility] Body weight 2022-02-20 09:25:00 96.163 kg [facility] BMI 2022-02-20 09:25:00 36.39 kg/m2 [facility] Procedures Procedure Date / Time Performed Performing Clinician Source NOTICE OF PRIVACY PRACTICES 2023-11-11 01:24:24 Doctor Unassigned, [place] [facility] CONSENT/REFUSAL FOR DIAGNOSIS AND TREATMENT 2023-11-11 01:23:54 Doctor Unassigned, [place] [facility] COVID-19 (ID NOW RAPID TESTING) 2023-10-27 07:09:00 Jac Navarro [facility] NOTICE OF PRIVACY PRACTICES 2023-10-27 06:49:48 Doctor Unassigned, [place] [facility] CONSENT/REFUSAL FOR DIAGNOSIS AND TREATMENT 2023-10-27 06:47:40 Doctor Unassigned, [place] [facility] CT ABDOMEN PELVIS W CONTRAST 2022-10-14 17:33:00 Melinda Maciel [facility] XR CHEST 1 VW 2022-10-14 [facility]:10[facility] 2022-10-14 16:37:00 Melinda Maciel [facility] COMP. METABOLIC PANEL ([id number]) 2022-10-14 16:37:00 Doe [facility] 2022-10-14 16:37:00 Melinda Maciel [facility] PROTHROMBIN TIME / INR 2022-10-14 16:37:00 Wali Maciel [facility] URINALYSIS 2022-10-14 16:37:00 [facility] N-TERMINAL PRO-BNP 2022-10-14 16:37:00 [facility] CONSENT/REFUSAL FOR DIAGNOSIS AND TREATMENT 2022-10-14 15:56:36 Doctor Unassigned, [place] [facility] CONSENT/REFUSAL FOR DIAGNOSIS AND TREATMENT 2022-03-12 10:03:12 Doctor Unassigned, [place] [facility] XR CHEST 1 VW 2022-02-20 09:59:00 Christy Holliday [facility] LIPASE 2022-02-20 09:30:00 Christy Holliday [facility] TROPONIN I 2022-02-20 09:30:00 Christy Holliday [facility] COMP. METABOLIC PANEL ([id number]) 2022-02-20 09:30:00 Christy Holliday [facility] CBC WITH DIFF 2022-02-20 09:30:00 Christy Holliday [facility] N-TERMINAL PRO-BNP 2022-02-20 09:30:00 Christy Holliday [facility] NOTICE OF PRIVACY PRACTICES 2022-02-20 09:15:02 Doctor Unassigned, [place] [facility] CONSENT/REFUSAL FOR DIAGNOSIS AND TREATMENT 2022-02-20 09:14:47 Doctor Unassigned, [place] [facility] Encounters Start Date/Time End Date/Time Encounter Type Admission Type Attending Clinicians Care Facility Care Department Encounter ID Source 2023-11-10 19:29:00 2023-11-10 20:14:00 Emergency X JUNIOR HOLLIDAYADRIANA [facility] ERT [id number] [facility] 2023-11-10 19:29:00 2023-11-10 20:14:00 Emergency Christy Holliday [facility] 1.2.840.114 350.1.13.10 4.2.7.2.686 [id number] [facility] 2023-10-27 00:49:00 2023-10-27 01:41:00 Emergency X JAC NAVARRO [facility] ERT [id number] [facility] 2023-10-27 00:49:00 2023-10-27 01:41:00 Emergency Jac Navarro [facility] 1.2.840.114 350.1.13.10 4.2.7.2.686 [id number] [facility] 2023-07-15 00:00:00 2023-07-15 00:00:00 Outpatient PREZAS, DARIEN MARIA ELENA MARIA ELENA [id number] Maria Elena [facility] 2023-06-16 11:30:00 2023-06-16 11:30:00 Outpatient PREZAS, DARIEN MARIA ELENA BECERRA [id number] [facility] 2023-05-18 00:00:00 2023-05-18 00:00:00 Outpatient GROUP, MARIA ELENA BECERRA [id number] [facility] 2022-10-14 10:07:00 2022-10-14 14:39:00 Emergency X MELINDA MACIEL [facility] ERT [id number] [facility] 2022-10-14 10:07:00 2022-10-14 14:39:00 Emergency Doe Macielip [facility] 1.2.840.114 350.1.13.10 4.2.7.2.686 [id number] [facility] 2022-03-12 05:15:00 2022-03-12 06:41:00 Emergency X CHRITSY HOLLIDAY [facility] ERT [id number] [facility] 2022-03-12 05:15:00 2022-03-12 06:41:00 Emergency SukizandraHudson cacereschristin Whitney [facility] 1.2.840.114 350.1.13.10 4.2.7.2.686 [id number] [facility] 2022-02-20 04:17:00 2022-02-20 07:16:00 Emergency X CHRISTY HOLLIDAY [facility] ERT [id number] [facility] 2022-02-20 04:17:00 2022-02-20 07:16:00 Emergency SukizandraHudson cacereschristin Whitney [facility] 1.2.840.114 350.1.13.10 4.2.7.2.686 [id number] [facility] 2021-02-03 11:10:00 2021-02-03 11:10:00 Outpatient R DENISE SUNG [facility] [id number] [facility] 2021-01-13 11:20:00 2021-01-13 11:20:00 Outpatient [facility] [id number] [facility] 2020-11-10 08:20:00 2020-11-10 08:20:00 Outpatient R BRYANKARLEY [facility] [id number] [facility] Results Test Description Test Time Test Comments Results Result Co mments Source [facility] [id number] 10:13:01* Test Item Value Reference Range Interpretation Comme nts NT-proBNP (test code = 7978933574) 52 pg/mL See_Comment [Automated message] The system which generated this result transmitted reference range: <=125. The reference range was not used to interpret this result as normal/abnormal. LOUISE (test code = LOUISE) Biotin has been reported to cause a negative bias, interpret results relative to patient's use of biotin. Lab Interpretation (test code = 57120-8) Normal [facility] (93784)2022-02-20 10:04:02* Test Item Value Reference Range Interpretation Comme nts NA (test code = 3149679390) 137 mmol/L 135-145 K (test code = 9799733950) 3.6 mmol/L 3.5-5.0 CL (test code = 1578035047) 99 mmol/L 98-108 CO2 TOTAL (test code = 1547695960) 25 mmol/L 23-31 AGAP (test code = 9919822022) 2-16 BUN (test code = 7012586779) 6 mg/dL 7-23 L GLUCOSE (test code = 5779528599) 88 mg/dL 70-110 CREATININE (test code = 2962547896) 0.55 mg/dL 0.60-1.25 L TOTAL BILI (test code = 8175916129) 0.8 mg/dL 0.1-1.1 CALCIUM (test code = 5233432722) 8.9 mg/dL 8.6-10.6 T PROTEIN (test code = 5590436668) 7.5 g/dL 6.3-8.2 ALBUMIN (test code = 3387765101) 4.8 g/dL 3.5-5.0 ALK PHOS (test code = 2849021185) 113 U/L 34-122 ALTv (test code = 1742-6) 84 U/L 5-50 H AST(SGOT) (test code = 3862522625) 107 U/L 13-40 H eGFR (test code = 8323001833) mL/min/1.73m2 LOUISE (test code = LOUISE) Association [...] imaging tests). Lab Interpretation (test code = 23099-1) Abnormal [facility] [id number] 10:03:21* Test Item Value Reference Range Interpretation Comme nts LIPASE (test code = 2932327441) 193 U/L 0-220 Lab Interpretation (test cod e = 48006-7) Normal [facility] WITH LOWW2442-02-14 09:39:17* Test Item Value Reference Range Interpretation Comme nts WBC (test code = 6690-2) See_Comment [Automated messa ge] The system which generated this result transmitted reference range: 4.20 - 10.70 10*3/?L. The reference range was not used to interpret this result as normal/abnormal. RBC (test code = 789-8) See_Comment [Automated messa ge] The system which [...] g/dL 31.2-35.0 H RDW-SD (test code = 34162-4) 44.4 fL 38.5-51.6 RDW-CV (test code = 788-0) 11.9 % 12.1-15.4 L PLT (test code = 777-3) See_Comment [Automated messa ge] The system which generated this result transmitted reference range: 150 - 328 10*3/?L. The reference range was not used to interpret this result as normal/abnormal. MPV (test code = 12355-2) 9.2 fL 9.8-13.0 L NRBC/100 WBC (test code = 2996286361) See_Comment [Automated ikaSystems ssage] The system which generated this result transmitted reference range: 0.0 - 10.0 /100 WBCs. The reference range was not used to interpret this result as normal/abnormal. NRBC x10^3 (test code = 4179477601) <0.01 See_Comment [Automated messa ge] The system which generated this result transmitted reference range: 10*3/?L. The reference range was not used to interpret this result as normal/abnormal. GRAN MAT (NEUT) % (test code = 770-8) 69.9 % IMM GRAN % (test code = 3169553082) 1.50 % LYMPH % (test code = 736-9) 18.9 % MONO % (test code = 5905-5) 7.0 % EOS % (test code = 713-8) 1.9 % BASO % (test code = 706-2) 0.8 % GRAN MAT x10^3(ANC) (test code = 6928136831) 7.15 10*3/uL 1.99-6.95 H IMM GRAN x10^3 (test code = 7633738947) 0.15 10*3/uL 0.00-0.06 H LYMPH x10^3 (test code = 731-0) 1.93 10*3/uL 1.09-3.23 MONO x10^3 (test code = 742-7) 0.72 10*3/uL 0.36-1.02 EOS x10^3 (test code = 711-2) 0.19 10*3/uL 0.06-0.53 BASO x10^3 (test code = 704-7) 0.08 10*3/uL 0.01-0.09 Lab Interpretation (test code = 05634-6) Abnormal [facility] Notes Date/Time Note Provider Source 2023-11-10 20:13:39 epOzdNJLTb2XexFYQPf0 FkzP16w/TlPnCn 4hne/WC185fG2HSnIsAOx5cyhNIvkO5444 T20:13:39 Pt requesting to leave AMA. ERP notified. Pt counseled to remain, risks of leaving AMA including discussed with pt. Pt continued to decline further ER evaluation at this time. AMA papers signed, witnessed, and placed on patient's chart. Pt left ambulatory. VS stable, no ataxia noted, GCS 15, A&Ox4. 93325-1Bccagvsey department PakbAF9165-10-61H41:13:52[facility] NoteTXT1.2.840.670951.1.13.104.2.7 .2.036770|[id number] for patient vxwx63154-4TbfpLAKSBULRZUEOvxombpl d C-CDA narrative [id number] R Goodrich RN[id number] 82JMFKZOVIOTCEFWNETVUQGG1419-44-29 T20:13:521.2.840.679597.1.72.3.15| 1.2.840.667800.1.13.104.2.7.2.7278 [id number] Briseida Medrano RN [facility] 2023-11-10 19:30:29 o2Or5/AkT9p8K0jaz+7H HtdmVtxF/EYpEt mJCNDolY8QJuN/twXm24jSu0KV0l3a5926 -11-10T19:30:29 Patient arrived to ED c/o SOB and COPD exacerbation. Symptoms started this morning. Patient wears 3L NC at home. Patient is a smoker. Patient states having the chills, diarrhea, and vomiting. States having sharp pains in chest from coughing. 27956-9Bfmdzndok department Triage xnzpNF7034-95-00F98:35:27[facility] Triage noteTXT1.2.840.146549.1.13.104.2.7 .2.733584|[id number] for patient ooie13524-3Rnhfvezjt department NoteLNNARRATIVEFormatted C-CDA narrative [id number]-Leyeb McInnis RN[id number] 69YUUSROPRKWBOPTAVDFABIF2831-81-29 T19:35:271.2.840.584542.1.72.3.15| 1.2.840.284114.1.13.104.2.7.2.7278 [id number] Sreedhar Gomez RN [facility]"
--- NOTE | 2023-12-06 18:14 | RAD REPORT ---
EXAM DESCRIPTION: CT - CTHCSPWOC - 12/06/2023 6:03 pm CLINICAL HISTORY: Trauma, head and neck injury. HEADACHE COMPARISON: No comparisons TECHNIQUE: Axial 5 mm thick images of the head were obtained. Axial 2 mm thick images of the cervical spine were obtained with sagittal and coronal reconstruction images generated and reviewed. All CT scans are performed using dose optimization technique as appropriate and may include automated exposure control or mA/KV adjustment according to patient size. FINDINGS: CT HEAD WITHOUT CONTRAST: No acute hemorrhage, hydrocephalus or extra-axial collection is identified.No areas of brain edema or midline shift. Mild chronic small vessel ischemic changes. The paranasal sinuses and mastoids are clear.The calvarium is intact. CT CERVICAL SPINE WITHOUT CONTRAST: No fracture or subluxation.No prevertebral soft tissues swelling is identified. Mild cervical spondyl osis with varying degrees of neural foraminal narrowing. IMPRESSION: No acute intracranial or cervical spine findings.
--- NOTE | 2023-12-06 18:35 | ER ---
Nurse's Notes [facility] Name: Randy Briones Age: 53 yrs Sex: Male : 1970 Arrival Date: 12/06/2023 Time: 17:09 Bed 15 Private MD: Adrianna Michaels H Diagnosis: Fall on same level from slipping, tripping and stumbling without subsequent striking against object;Unspecified injury of head, initial encounter;Cervicalgia;Pain in left leg Presentation: 12/06 17:15 Chief complaint: Patient states: "I slipped in the shower and hit my head" pt c/o as6 headache. Coronavirus screen: At this time, the client does not indicate any symptoms associated with coronavirus-19. Ebola Screen: No symptoms or risks identified at this time. Initial Sepsis Screen: Does the patient meet any 2 criteria? No. Patient's initial sepsis screen is negative. Does the patient have a suspected source of infection? No. Patient's initial sepsis screen is negative. Risk Assessment: Do you want to hurt yourself or someone else? Patient reports no desire to harm self or others. Onset of symptoms was December 06, 2023. 17:15 Acuity: CANDACE 4 as6 17:15 Method Of Arrival: Ambulatory as6 Historical: - Allergies: 17:15 Lisinopril; as6 - PMHx: 17:15 Alcoholism; COPD; home 02 3LNC PRN; Hypertension; as6 - PSHx: 17:15 Amputation of left index finger; as6 - Immunization history:: Adult Immunizations up to date. - Social history:: Smoking status: Patient reports the use of cigarette tobacco products, smokes two packs cigarettes per day. Screenin:27 [facility] ED Fall Risk Assessment (Adult) History of falling in the last 3 months, mb9 including since admission Yes- single mechanical fall (1 pt) Confusion or Disorientation No (0 pts) Intoxicated or Sedated Yes (3 pts) Impaired Gait No (0 pts) Mobility Assist Device Used No (0 pt) Altered Elimination No (0 pt) Score/Fall Risk Level 3 or more points = High Risk Oriented to surroundings, Maintained a safe environment, Educated pt \\T\\ family on fall prevention, incl call for assistance when getting out of bed. Abuse screen: Denies threats or abuse. Nutritional screening: No deficits noted. Tuberculosis screening: No symptoms or risk factors identified. Assessment: 17:32 Reassessment: C-Collar applied to pt. mb9 17:32 General: Appears in no apparent distress. Behavior is calm, cooperative. Pain: mb9 Complains of pain in face and neck Pain does not radiate. Quality of pain is described as throbbing. Neuro: Macario Agitation-Sedation Scale (RASS): 0 - Alert and Calm Level of Consciousness is awake, alert, obeys commands, Oriented to person, place, time, situation, Appropriate for age Farm Specialist are equal bilaterally Facial symmetry appears normal, Pupils are PERRLA. Cardiovascular: Patient's skin is warm and dry. Respiratory: Airway is patent Respiratory effort is even, unlabored, Respiratory pattern is regular, symmetrical. GI: Abdomen is round non-distended, Patient currently denies nausea, vomiting. : No signs and/or symptoms were reported regarding the genitourinary system. EENT: No signs and/or symptoms were reported regarding the EENT system. Derm: Skin is pink, warm \\T\\ dry. abrasion noted to head. No active bleeding. Musculoskeletal: Range of motion: intact in all extremities. Vital Signs: 17:15 BP 136 / 86; Pulse 109; Resp 20 S; Temp 98.2(TE); Pulse Ox 99% on R/A; Weight 78.47 kg as6 (R); Height 5 ft. 4 in. (R); Pain 9/10; 17:15 Body Mass Index 29.70 (78.47 kg, 162.56 cm) as6 17:15 Pain Scale: Adult as6 [place] Coma Score: 17:45 Eye Response: spontaneous(4). Motor Response: obeys commands(6). Verbal Response: cp oriented(5). Total: 15. ED Course: 17:12 Patient arrived in ED. mr 17:12 Adrianna Michaels DO is Private Physician. mr 17:15 Arm band placed on. as6 17:17 Triage completed. as6 17:26 Bianca Shi RN is Primary Nurse. mb9 17:26 Bg Pro PA is PHCP. cp 17:26 Milton Reyes MD is Attending Physician. cp 17:26 Placed in gown. Bed in low position. Call light in reach. Side rails up X 1. Client mb9 placed on continuous cardiac and pulse oximetry monitoring. NIBP monitoring applied. 18:03 CT Head C Spine In Process Unspecified. EDMS 18:38 Provided Education on: followup. as6 18:38 No provider procedures requiring assistance completed. Patient did not have IV access mb9 during this emergency room visit. Administered Medications: 17:38 Drug: Hydrocodone-Acetaminophen PO (7.5 mg-325 mg) 1 tabs PO once Route: PO; mb9 18:10 Follow up: Response: No adverse reaction mb9 Medication: 17:27 VIS not applicable for this client. mb9 Outcome: 18:35 Discharge ordered by MD. cp 18:38 Discharged to home ambulatory, with significant other, as6 18:38 Condition: stable 18:38 Discharge instructions given to significant other, Instructed on discharge instructions, follow up and referral plans. Demonstrated understanding of instructions, follow-up care, 18:38 Discharged to home ambulatory, mb9 18:38 Condition: stable 18:38 Discharge instructions given to patient, Instructed on discharge instructions, follow up and referral plans. Demonstrated understanding of medications, 18:39 Patient left the ED. as6 Signatures: Dispatcher [employer] EDMI Bianca Canela, Reg Reg Bg Snider, Parish Wahl cp, RN RN as6 Bianca Shi, RN RN mb9
--- NOTE | 2023-12-06 18:35 | EDPHYS ---
Physician Documentation [facility] Name: Randy Briones Age: 53 yrs Sex: Male : 1970 Arrival Date: 12/06/2023 Time: 17:09 Bed 15 Private MD: Adrianna Michaels H ED Physician Milton Reyes HPI: 12/06 17:45 This 53 yrs old Male presents to ER via Ambulatory with complaints of Fall Injury, cp Laceration To Head. 17:45 Details of fall: The patient fell from an upright position, while walking, and struck a cp tile surface. Onset: The symptoms/episode began/occurred just prior to arrival. Associated injuries: The patient sustained injury to the head, laceration. 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 Patient reports striking back of head on floor. 17:45 Associated signs and symptoms: Loss of consciousness: This patient did not experience cp any loss of consciousness. Historical: - Allergies: 17:15 Lisinopril; as6 - PMHx: 17:15 Alcoholism; COPD; home 02 3LNC PRN; Hypertension; as6 - PSHx: 17:15 Amputation of left index finger; as6 - Immunization history:: Adult Immunizations up to date. - Social history:: Smoking status: Patient reports the use of cigarette tobacco products, smokes two packs cigarettes per day. ROS: 17:50 Constitutional: Negative for fever, cp 17:50 Neck: Positive for tenderness, Negative for stiffness, 17:50 Cardiovascular: Negative for chest pain, palpitations, 17:50 Abdomen/GI: Negative for abdominal pain, vomiting, diarrhea, constipation, 17:50 Neuro: Positive for headache, Negative for altered mental status, loss of consciousness, seizure activity, syncope, weakness, 17:50 All other systems are negative, Exam: 17:55 Constitutional: The patient appears in no acute distress, alert, awake, cp non-diaphoretic, non-toxic, well developed, well nourished, uncomfortable, 17:55 Head/face: Noted is a laceration(s), that is superficial, that is linear, of the top cp of head and left side of the back of head, 17:55 Eyes: Periorbital structures: appear normal, Pupils: equal, round, and reactive to light and accomodation, Extraocular movements: intact throughout, Conjunctiva: normal, no exudate, no injection, Sclera: no appreciated abnormality, Lids and lashes: appear normal, bilaterally, 17:55 ENT: External ear(s): are unremarkable, Ear canal(s): are normal, clear, TM's: dullness, bilaterally, Nose: is normal, Mouth: Lips: moist, Oral mucosa: pink and intact, moist, Posterior pharynx: is normal, airway is patent, no erythema, no exudate, 17:55 Neck: C-spine: C-collar placed in ED, vertebral tenderness, that is mild, appreciated at C3, C4 and C5, ROM/movement: nuchal rigidity, is not appreciated, 17:55 Chest/axilla: Inspection: normal, Palpation: is normal, no crepitus, no tenderness, 17:55 Cardiovascular: Rate: tachycardic, Rhythm: regular, Edema: is not appreciated, JVD: is not appreciated, 17:55 Respiratory: the patient does not display signs of respiratory distress, Respirations: normal, no use of accessory muscles, no retractions, labored breathing, is not present, Breath sounds: are clear throughout, no decreased breath sounds, no stridor, no wheezing, 17:55 Abdomen/GI: Inspection: abdomen appears normal, Palpation: abdomen is soft and non-tender, in all quadrants, 17:55 Back: pain, is absent, ROM is normal, 17:55 Musculoskeletal/extremity: Extremities: grossly normal except: noted in the left leg: pain, tenderness, There is no evidence of decreased ROM, deformity, 17:55 Neuro: Orientation: to person, place \T\ time. Mentation: able to follow commands, Motor: moves all fours, strength is normal, Sensation: no obvious gross deficits, Vital Signs: 17:15 BP 136 / 86; Pulse 109; Resp 20 S; Temp 98.2(TE); Pulse Ox 99% on R/A; Weight 78.47 kg as6 (R); Height 5 ft. 4 in. (R); Pain 9/10; 17:15 Body Mass Index 29.70 (78.47 kg, 162.56 cm) as6 17:15 Pain Scale: Adult as6 [place] Coma Score: 17:45 Eye Response: spontaneous(4). Motor Response: obeys commands(6). Verbal Response: cp oriented(5). Total: 15. MDM: 17:27 Patient medically screened. cp 18:00 Differential diagnosis: Contusion of Hematoma on Laceration of Intracranial bleed- cp Concussion cerebral contusion. 18:35 I considered the following discharge prescriptions or medication management in the cp emergency department Medications were administered in the Emergency Department. See MAR. 18:35 Care significantly affected by the following chronic conditions: Hypertension, Chronic cp Obstructive Pulmonary Disease. Counseling: I had a detailed discussion with the patient and/or guardian regarding the historical points, exam findings, and any diagnostic results supporting the discharge/admit diagnosis, radiology results, to return to the emergency department if symptoms worsen or persist or if there are any questions or concerns that arise at home. Response to treatment: the patient's symptoms have markedly improved after treatment, and as a result, I will discharge patient. Special discussion: Based on the patient's history, exam and DX evaluation, there is no indication for emergent intervention or inpatient TX. It is understood by the patient/guardian that if the SXs persist or worsen they need to return immediately for re-evaluation. 18:36 Data reviewed: vital signs, nurses notes, radiologic studies, CT scan. Refusal of cp service: The patient/guardian displays adequate decision making capability and despite a detailed discussion of alternatives, benefits, risks, and consequences refuses: xrays of left leg. 12/06 17:34 Order name: CT Head C Spine; Complete Time: 18:16 cp 12/06 18:17 Interpretation: Reviewed report. cp Administered Medications: 17:38 Drug: Hydrocodone-Acetaminophen PO (7.5 mg-325 mg) 1 tabs PO once Route: PO; mb9 18:10 Follow up: Response: No adverse reaction mb9 Disposition: 19:14 Co-signature as Attending Physician, Milton Reyes MD I reviewed the patient's care rt provided by the Advanced Practice Provider and agree with the diagnosis and treatment plan. Disposition Summary: 12/06/23 18:35 Discharge Ordered Notes: Location: Home cp Problem: new cp Symptoms: have improved cp Condition: Stable cp Diagnosis - Fall on same level from slipping, tripping and stumbling without subsequent cp striking against object - Unspecified injury of head, initial encounter cp - Cervicalgia cp - Pain in left leg cp Followup: cp - With: Private Physician - When: 2 - 3 days - Reason: Worsening of condition Discharge Instructions: - Discharge Summary Sheet cp - Contusion cp - Head Injury, Adult cp - Musculoskeletal Pain cp - Neck Exercises cp Forms: - Medication Reconciliation Form cp - Thank You Letter cp - Antibiotic Education cp - Prescription Opioid Use cp - Patient Portal Instructions cp - Leadership Thank You Letter cp Signatures: Dispatcher [employer] EDMS Bg Pro PA PA cp Parish Chapman RN RN as6 Bianca Shi RN RN mb9 Milton Reyes MD MD rt Corrections: (The following items were deleted from the chart) 12/07 18:16 12/06 17:40 Neuro: Positive for headache, Negative for altered mental status, loss of cp consciousness, seizure activity, syncope, weakness, cp 12/07 18:16 12/06 17:40 Cardiovascular: Negative for chest pain, palpitations, cp cp 12/07 18:16 12/06 17:40 Abdomen/GI: Negative for abdominal pain, vomiting, diarrhea, constipation, cp cp 12/07 18:16 12/06 17:40 Constitutional: Negative for fever, cp cp 12/07 18:16 12/06 17:40 Neck: Positive for tenderness, Negative for stiffness, cp cp 12/07 18:12/06 17:40 All other systems are negative, cp cp
[2023-12-06 21:46] VITALS: BP 136/86; TEMP 98.2; O2SAT 99
== END ==
LOC: ER 17:09
DX: S09.90XA Unspecified injury of head, initial encounter (principal); M54.2 Cervicalgia; M79.605 Pain in left leg; W01.0XXA Fall on same level from slipping, tripping and stumbling without subsequent striking against object, initial encounter; F10.20 Alcohol dependence, uncomplicated; J44.9 Chronic obstructive pulmonary disease, unspecified; Z99.81 Dependence on supplemental oxygen; F17.210 Nicotine dependence, cigarettes, uncomplicated; Z88.8 Allergy status to other drugs, medicaments and biological substances
CPT/HCPCS: 70450; 72125

== ENCOUNTER → 2023-12-28 | Emergency (ER) | payer OTHER ==
[~2023-12-28] MED LIST changes: +ALBUTEROL 2.5 MG/3 ML NEB SOL ONE; +FAMOTIDINE 20 MG/2 ML VIAL IV ONE; -HYDROCODONE/APAP 7.5/325 MG TAB ONE; +LORAZEPAM 1 MG TABLET ONE; +MORPHINE 4 MG/ML SYR ONE; +ONDANSETRON 4 MG/2 ML VIAL ONE; +predniSONE 20 MG TAB ONE
--- OUTSIDE RECORDS SUMMARY | 2023-12-28 20:58 | XMS REPORT | Continuity of Care Document ---
Author Name Unknown Address [address] [facility] [address] [place] [address] [facility] thconnect Address [address] [facility] [address] [place] [address] Care Team Providers Care Phone Banker Name Role Phone LOPEZ, SANDRA Primary Care Physician Unavailab TYLER Burns Attending Clinician Unavailab MELINDA Boothe Attending Clinician Unavailable Melinda Maciel DO Attending Clinician [phone] CHRISTY HOLLIDAY Attending Clinician Unavailable Christy Holliday MD Attending Clinician [phone] JAC NAVARRO Attending Clinician Unavailable Jac Navarro MD Attending Clinician [phone] DARIEN LOBO Attending Clinician Unavailable MARIA ELENA [facility] Attending Hernandezia tashi Unavailable DENISE SUNG Attending Clinician Unavailable KARLEY ADAMS Attending Clinician Unavailable MELINDA MACIEL Admitting Clinician Unavailable JAC NAVARRO Admitting Clinician Unavailable CHRISTY HOLLIDAY Admitting Clinician Unavailable Payers Payer Name Policy Type Policy Number Effective Date Expirati on Date Source HIM [facility] [id number] 2023 00:00:00 [employer] [id number] 2023 00:00:00 [employer] 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 ASST 94 ON 9 [id number] 2023 00:00:00 Problems Condition Name Condition Details Condition Category Status Onset Date Resolution Date Last Treatment Date Treating Clinician Comments Source Acute exacerbati on of chronic obstructiv e pulmonary disease (COPD) Acute exacerbati on of chronic obstructiv e pulmonary disease (COPD) Disease Active 03-24 00:00: 00 [facility] Obesity (BMI 30-39.9) Obesity (BMI 30-39.9) Disease Active 03-24 00:00: 00 [facility] Allergies, Adverse Reactions, Alerts Allergy Name Allergy Type Status Severity Reaction(s) Onset Date Inactive Date Treating Clinician Comments Source Lisinopr il Propensi ty to adverse reaction s Active Anaphylaxis 03-24 00:00: 00 [facility] LISINOPR [place] DRUG INGREDI Active Anaphylaxis 03-24 00:00: 00 [facility] Social History Social Habit Start Date Stop Date Quantity Comments Source History of tobacco use Smokes tobacco daily [facility] Social function 2023-12-22 00:00:00 2023-12-22 00:00:00 [facility] Alcohol intake 2023-12-22 00:00:00 2023-12-22 00:00:00 4.29 /d [facility] Exposure to SARS-CoV-2 (event) 2022-10-04 00:00:00 2022-10-14 10:25:00 Not sure [facility] Tobacco use and exposure 2018-03-24 00:00:00 2018-03-24 00:00:00 User of smokeless tobacco [facility] Tobacco Comment 2018-03-24 00:00:00 2018-03-24 00:00:00 trying to quit [facility] Sex Assigned At 1970 00:00:00 1970 00:00:00 [facility] Smoking Status Start Date Stop Date Source Smokes tobacco daily 2018-03-24 00:00:00 [facility] Medications Ordered Medication Name Filled Medication Name Start Date Stop Date Current Medication? Ordering Clinician Indication Dosage Frequency Signature (SIG) Comments Components Source KCL (KLOR-CON M20) tablet 40 mEq 12-23 05:00: 00 12-23 05:07 :00 No 40meq 40 mEq, Oral, ONCE, 1 dose, On Thu12/22/23 at 2300, [facility] NaCl 0.9% (NS) bolus infusion 1,000 mL 12-23 05:00: 00 12-23 05:09 :00 No 1000mL at 999 mL/hr, 1,000 mL, IV Infusion, ONCE, 1 dose, On Thu12/22/23 at 2300, [facility] ondansetron (ZOFRAN (PF)) injection 4 mg 12-23 04:30: 00 12-23 04:24 :00 No 4mg 4 mg, Slow IV Push, ONCE, 1 dose, On Thu12/22/23 at 2230, [facility] maalox:diph enhydrAMINE :lidocaine 2 % viscous 1:1:1 ([facility]) oral suspension 15 mL 12-23 04:15: 00 12-23 04:17 :00 No 15mL 15 mL, Oral, ONCE, 1 dose, On Thu12/22/23 at 2215, Routine [facility] famotidine (PEPCID (PF)) injection 20 mg 12-23 04:15: 00 12-23 04:15 :00 No 20mg 20 mg, Slow IV Push, ONCE, 1 dose, On Thu12/22/23 at 2215, [facility] HYDROcodone -acetaminop hen (NORCO) 10-325 mg tablet 1 tablet 12-22 04:30: 00 12-22 16:29 :00 Yes 1{tbl} 1 tablet, Oral, ONCE, 1 dose, On Thu12/21/23 at 2230, Routine [facility] pantoprazol e (PROTONIX) 80 mg in NaCl 0.9% (NS) 20 mL syringe 12-22 04:15: 00 12-22 16:14 :00 Yes 80mg 80 mg, IV Push, ONCE, 1 dose, On Thu12/21/23 at 2215, Administer over 2 Minutes, 20 mL [facility] iopamidol (ISOVUE 370-500 mL) injection 100 mL 12-22 03:30: 00 12-22 03:30 :00 No [id number] 100mL 100 mL, Intravenou s, ONCE, 1 dose, On Thu12/21/23 at 2130, Routine [facility] morpHINE (4 mg/mL) injection 4 mg 12-22 03:30: 00 12-22 02:16 :00 No 4mg 4 mg, Slow IV Push, ONCE, 1 dose, On Thu12/21/23 at 2130, Routine [facility] ondansetron (ZOFRAN (PF)) injection 4 mg 12-22 02:45: 00 12-22 02:02 :00 No 4mg 4 mg, Slow IV Push, ONCE, 1 dose, On Thu12/21/23 at 2045, Routine [facility] ondansetron 4 mg disintegrat ing tablet 12-22 00:00: 00 Yes [id number] 4mg Take 1 tablet by mouth every 8 (eight) hours as needed for Nausea and Vomiting (N/V). [facility] hydrocortis one 25 mg suppository 12-22 00:00: 00 Yes [id number] 25mg Insert 1 Suppositor y into rectum 2 (two) times daily as needed for Rectal itching/pa in. [facility] amoxicillin -clavulanat e 875-125 mg per tablet 12-22 00:00: 00 01-02 05:59 :00 Yes [id number] 1{tbl} Take 1 tablet by mouth every 12 (twelve) hours for 10 days. [facility] methylpredn isolone sod succ (SOLU-MEDRO L) injection 125 mg 2022-11 08:45: 00 10-27 20:44 :00 Yes 125mg 125 mg, Slow IV Push, ONCE, 1 dose, On Thu10/27/23 at 0245, STAT [facility] ipratropium -albuteroL (DUONEB) 0.5 mg-3 mg(2.5 mg base)/3 mL nebulizer solution 3 mL 2022-11 08:45: 00 10-27 20:44 :00 Yes 3mL 3 mL, Inhalation , ONCE NOW, 1 dose, On Thu10/27/23 at 0245, LAURYN [facility] diazePAM (VALIUM) tablet 10 mg 2022-11 07:45: 00 10-27 19:44 :00 Yes 10mg 10 mg, Oral, ONCE, 1 dose, On Thu10/27/23 at 0145, LAURYN [facility] levoFLOXaci n (LEVAQUIN) tablet 500 mg 2022-11 07:45: 00 10-27 19:44 :00 Yes 500mg 500 mg, Oral, ONCE, 1 dose, On Thu10/27/23 at 0145, LAURYN
Re ason for Anti-Infec tive: Empiric Non-Surgic al Prophylaxi s
Durat ion of therapy: Once (ED) [facility] iopamidol (ISOVUE 370-500 mL) injection 70 mL 2021-11 18:30: 00 10-14 18:30 :00 No [id number] 70mL 70 mL, Intravenou s, ONCE, 1 dose, On Thu10/14/22 at 1230, Routine [facility] methylpredn isolone sod succ (SOLU-MEDRO L) injection 125 mg 2021-11 18:00: 00 Yes 125mg 125 mg, Intravenou s, Q6H, First dose on Thu10/14/22 at 1200, Until Discontinu ed, Routine [facility] furosemide (LASIX) injection 40 mg 2021-11 17:45: 00 10-14 16:39 :00 No 40mg 40 mg, IV Push, ONCE, 1 dose, On Thu10/14/22 at 1145, LAURYN [facility] ipratropium -albuteroL (DUONEB) 0.5 mg-3 mg(2.5 mg base)/3 mL nebulizer solution 3 mL 2021-11 17:30: 00 10-14 16:41 :00 No 3mL 3 mL, Inhalation , ONCE, 1 dose, On Thu10/14/22 at 1130, Routine [facility] FENTanyl PF (SUBLIMAZE (PF)) injection 50 mcg 2021-11 16:45: 00 10-14 16:39 :00 No 50ug 50 mcg, Slow IV Push, ONCE, 1 dose, On Thu10/14/22 at 1045, Routine [facility] levoFLOXaci n 750 mg tablet 2021-11 00:00: 00 Yes [id number] 750mg Take 1 tablet by mouth every 24 (twenty-fo ur) hours. [facility] levoFLOXaci n 750 mg tablet 2021-11 00:00: 00 Yes [id number] 750mg Take 1 tablet by mouth every 24 (twenty-fo ur) hours. [facility] levoFLOXaci n 750 mg tablet 2021-11 00:00: 00 Yes [id number] 750mg Take 1 tablet by mouth every 24 (twenty-fo ur) hours. [facility] levoFLOXaci n 750 mg tablet 2021-11 00:00: 00 Yes [id number] 750mg Take 1 tablet by mouth every 24 (twenty-fo ur) hours. [facility] levoFLOXaci n 750 mg tablet 2021-11 00:00: 00 Yes [id number] 750mg Take 1 tablet by mouth every 24 (twenty-fo ur) hours. [facility] HYDROcodone -acetaminop hen (NORCO) 10-325 mg tablet 1 tablet 03-12 12:15: 00 03-12 11:21 :00 No 1{tbl} 1 tablet, Oral, ONCE, 1 dose, On Thu03/12/22 at 0715, Routine [facility] HYDROcodone -acetaminop hen 10-325 mg tablet 03-12 00:00: 00 03-20 04:59 :00 No [id number] 1{tbl} Take 1 tablet by mouth every 6 (six) hours as needed for Pain (scale 7-10) for up to 7 days. Indication s: acute pain [facility] ipratropium -albuteroL (DUONEB) 0.5 mg-3 mg(2.5 mg base)/3 mL nebulizer solution 3 mL 02-20 13:00: 00 Yes 3mL 3 mL, Inhalation , QID, First dose on Thu02/20/22 at 0800, Until Discontinu ed, Routine [facility] methylPREDN ISolone sod succ (SOLU-MEDRO L (PF)) injection 40 mg 02-20 11:45: 00 02-20 10:43 :00 No 40mg 40 mg, Intravenou s, ONCE, 1 dose, On Thu02/20/22 at 0645, STAT [facility] foLIC acid (FOLATE) tablet 1 mg 02-20 11:45: 00 02-20 10:41 :00 No 1mg 1 mg, Oral, ONCE, 1 dose, On Thu02/20/22 at 0645, LAURYN [facility] thiamine (VITAMIN B1) injection 100 mg 02-20 11:45: 00 02-20 10:43 :00 No 100mg 100 mg, Intravenou s, ONCE, 1 dose, On Thu02/20/22 at 0645, LAURYN [facility] LORazepam (ATIVAN) injection 2 mg 02-20 11:45: 00 02-20 10:42 :00 No 2mg 2 mg, Slow IV Push, ONCE, 1 dose, On Thu02/20/22 at 0645, STAT [facility] ipratropium -albuteroL (DUONEB) 0.5 mg-3 mg(2.5 mg base)/3 mL nebulizer solution 3 mL 02-20 10:30: 00 02-20 09:34 :00 No 3mL 3 mL, Inhalation , ONCE, 1 dose, On Kym 4/14/22 at 0530, Routine [facility] albuterol 90 mcg/actuati on inhaler 02-20 00:00: 00 Yes [id number] 2{puff} Inhale 2 Puffs every 4 (four) hours as needed for Wheezing or Shortness of Breath. [facility] albuterol 2.5 mg /3 mL (0.083 %) nebulizer solution 02-20 00:00: 00 Yes [id number] 2.5mg Inhale 3 mL every 4 (four) hours. May also nebulize one extra every 6 hours. [facility] budesonide- formoteroL 160-4.5 mcg/actuati on inhaler 02-20 00:00: 00 Yes [id number] 2{puff} Inhale 2 Puffs 2 (two) times daily. [facility] triamterene -hydrochlor othiazid 37.5-25 mg tablet 02-20 00:00: 00 Yes [id number] 1{tbl} Take 1 tablet by mouth daily. [facility] chlordiazeP OXIDE 25 mg capsule 02-20 00:00: 00 Yes [id number] 25mg Take 1 capsule by mouth every 6 (six) hours as needed for Anxiety, Agitation, Heart Rate => 100 or Detox. [facility] predniSONE 10 mg tablet 02-20 00:00: 00 Yes [id number] TAKE ONE TABLET BY MOUTH DAILY [facility] albuterol 90 mcg/actuati on inhaler 02-20 00:00: 00 Yes [id number] 2{puff} Inhale 2 Puffs every 4 (four) hours as needed for Wheezing or Shortness of Breath. [facility] albuterol 2.5 mg /3 mL (0.083 %) nebulizer solution 02-20 00:00: 00 Yes [id number] 2.5mg Inhale 3 mL every 4 (four) hours. May also nebulize one extra every 6 hours. [facility] budesonide- formoteroL 160-4.5 mcg/actuati on inhaler 02-20 00:00: 00 Yes [id number] 2{puff} Inhale 2 Puffs 2 (two) times daily. [facility] triamterene -hydrochlor othiazid 37.5-25 mg tablet 02-20 00:00: 00 Yes [id number] 1{tbl} Take 1 tablet by mouth daily. [facility] chlordiazeP OXIDE 25 mg capsule 02-20 00:00: 00 Yes [id number] 25mg Take 1 capsule by mouth every 6 (six) hours as needed for Anxiety, Agitation, Heart Rate => 100 or Detox. [facility] predniSONE 10 mg tablet 02-20 00:00: 00 Yes [id number] TAKE ONE TABLET BY MOUTH DAILY [facility] albuterol 90 mcg/actuati on inhaler 02-20 00:00: 00 Yes [id number] 2{puff} Inhale 2 Puffs every 4 (four) hours as needed for Wheezing or Shortness of Breath. [facility] albuterol 2.5 mg /3 mL (0.083 %) nebulizer solution 02-20 00:00: 00 Yes [id number] 2.5mg Inhale 3 mL every 4 (four) hours. May also nebulize one extra every 6 hours. [facility] budesonide- formoteroL 160-4.5 mcg/actuati on inhaler 02-20 00:00: 00 Yes [id number] 2{puff} Inhale 2 Puffs 2 (two) times daily. [facility] triamterene -hydrochlor othiazid 37.5-25 mg tablet 02-20 00:00: 00 Yes [id number] 1{tbl} Take 1 tablet by mouth daily. [facility] chlordiazeP OXIDE 25 mg capsule 02-20 00:00: 00 Yes [id number] 25mg Take 1 capsule by mouth every 6 (six) hours as needed for Anxiety, Agitation, Heart Rate => 100 or Detox. [facility] predniSONE 10 mg tablet 02-20 00:00: 00 Yes [id number] TAKE ONE TABLET BY MOUTH DAILY [facility] albuterol 90 mcg/actuati on inhaler 02-20 00:00: 00 Yes [id number] 2{puff} Inhale 2 Puffs every 4 (four) hours as needed for Wheezing or Shortness of Breath. [facility] albuterol 2.5 mg /3 mL (0.083 %) nebulizer solution 02-20 00:00: 00 Yes [id number] 2.5mg Inhale 3 mL every 4 (four) hours. May also nebulize one extra every 6 hours. [facility] budesonide- formoteroL 160-4.5 mcg/actuati on inhaler 02-20 00:00: 00 Yes [id number] 2{puff} Inhale 2 Puffs 2 (two) times daily. [facility] triamterene -hydrochlor othiazid 37.5-25 mg tablet 02-20 00:00: 00 Yes [id number] 1{tbl} Take 1 tablet by mouth daily. [facility] chlordiazeP OXIDE 25 mg capsule 02-20 00:00: 00 Yes [id number] 25mg Take 1 capsule by mouth every 6 (six) hours as needed for Anxiety, Agitation, Heart Rate => 100 or Detox. [facility] predniSONE 10 mg tablet 02-20 00:00: 00 Yes [id number] TAKE ONE TABLET BY MOUTH DAILY [facility] albuterol 90 mcg/actuati on inhaler 02-20 00:00: 00 Yes [id number] 2{puff} Inhale 2 Puffs every 4 (four) hours as needed for Wheezing or Shortness of Breath. [facility] albuterol 2.5 mg /3 mL (0.083 %) nebulizer solution 02-20 00:00: 00 Yes [id number] 2.5mg Inhale 3 mL every 4 (four) hours. May also nebulize one extra every 6 hours. [facility] budesonide- formoteroL 160-4.5 mcg/actuati on inhaler 02-20 00:00: 00 Yes [id number] 2{puff} Inhale 2 Puffs 2 (two) times daily. [facility] triamterene -hydrochlor othiazid 37.5-25 mg tablet 02-20 00:00: 00 Yes [id number] 1{tbl} Take 1 tablet by mouth daily. [facility] chlordiazeP OXIDE 25 mg capsule 02-20 00:00: 00 Yes [id number] 25mg Take 1 capsule by mouth every 6 (six) hours as needed for Anxiety, Agitation, Heart Rate => 100 or Detox. [facility] predniSONE 10 mg tablet 02-20 00:00: 00 Yes [id number] TAKE ONE TABLET BY MOUTH DAILY [facility] albuterol 90 mcg/actuati on inhaler 02-20 00:00: 00 Yes [id number] 2{puff} Inhale 2 Puffs every 4 (four) hours as needed for Wheezing or Shortness of Breath. [facility] albuterol 2.5 mg /3 mL (0.083 %) nebulizer solution 02-20 00:00: 00 Yes [id number] 2.5mg Inhale 3 mL every 4 (four) hours. May also nebulize one extra every 6 hours. [facility] budesonide- formoteroL 160-4.5 mcg/actuati on inhaler 02-20 00:00: 00 Yes [id number] 2{puff} Inhale 2 Puffs 2 (two) times daily. [facility] triamterene -hydrochlor othiazid 37.5-25 mg tablet 02-20 00:00: 00 Yes [id number] 1{tbl} Take 1 tablet by mouth daily. [facility] chlordiazeP OXIDE 25 mg capsule 02-20 00:00: 00 Yes [id number] 25mg Take 1 capsule by mouth every 6 (six) hours as needed for Anxiety, Agitation, Heart Rate => 100 or Detox. [facility] predniSONE 10 mg tablet 02-20 00:00: 00 Yes [id number] TAKE ONE TABLET BY MOUTH DAILY [facility] albuterol 90 mcg/actuati on inhaler 02-20 00:00: 00 Yes [id number] 2{puff} Inhale 2 Puffs every 4 (four) hours as needed for Wheezing or Shortness of Breath. [facility] albuterol 2.5 mg /3 mL (0.083 %) nebulizer solution 02-20 00:00: 00 Yes [id number] 2.5mg Inhale 3 mL every 4 (four) hours. May also nebulize one extra every 6 hours. [facility] budesonide- formoteroL 160-4.5 mcg/actuati on inhaler 02-20 00:00: 00 Yes [id number] 2{puff} Inhale 2 Puffs 2 (two) times daily. [facility] triamterene -hydrochlor othiazid 37.5-25 mg tablet 02-20 00:00: 00 Yes [id number] 1{tbl} Take 1 tablet by mouth daily. [facility] chlordiazeP OXIDE 25 mg capsule 02-20 00:00: 00 Yes [id number] 25mg Take 1 capsule by mouth every 6 (six) hours as needed for Anxiety, Agitation, Heart Rate => 100 or Detox. [facility] predniSONE 10 mg tablet 02-20 00:00: 00 Yes [id number] TAKE ONE TABLET BY MOUTH DAILY [facility] albuterol 5 mg/mL nebulizer solution 07-16 14:02: 20 Yes 2.5mg Inhale 2.5 mg every 6 (six) hours as needed for Wheezing or Shortness of Breath. [facility] albuterol 5 mg/mL nebulizer solution 07-16 14:02: 20 Yes 2.5mg Inhale 2.5 mg every 6 (six) hours as needed for Wheezing or Shortness of Breath. [facility] albuterol 5 mg/mL nebulizer solution 07-16 14:02: 20 Yes 2.5mg Inhale 2.5 mg every 6 (six) hours as needed for Wheezing or Shortness of Breath. [facility]/mL [facility] 07-16 14:02: 20 Yes 2.5mg Inhale 2.5 mg every 6 (six) hours as needed for Wheezing or Shortness of Breath. [facility] mg/mL nebulizer solution 07-16 14:02: 20 Yes 2.5mg Inhale 2.5 mg every 6 (six) hours as needed for Wheezing or Shortness of Breath. [facility] mg/mL nebulizer solution 07-16 14:02: 20 Yes 2.5mg Inhale 2.5 mg every 6 (six) hours as needed for Wheezing or Shortness of Breath. [facility] albuterol 5 mg/mL nebulizer solution 07-16 14:02: 20 Yes 2.5mg Inhale 2.5 mg every 6 (six) hours as needed for Wheezing or Shortness of Breath. [facility] budesonide- formoterol 160-4.5 mcg/actuati on inhaler 07-16 00:00: 00 Yes 2{puff} Inhale 2 Puffs 2 (two) times daily. [facility] albuterol 2.5 mg /3 mL (0.083 %) nebulizer solution 07-16 00:00: 00 Yes 2.5mg Inhale 3 mL every 4 (four) hours as needed for Wheezing or Shortness of Breath. [facility] budesonide- formoterol 160-4.5 mcg/actuati on inhaler 07-16 00:00: 00 Yes 2{puff} Inhale 2 Puffs 2 (two) times daily. [facility] albuterol 2.5 mg /3 mL (0.083 %) nebulizer solution 07-16 00:00: 00 Yes 2.5mg Inhale 3 mL every 4 (four) hours as needed for Wheezing or Shortness of Breath. [facility] budesonide- formoterol 160-4.5 mcg/actuati on inhaler 07-16 00:00: 00 Yes 2{puff} Inhale 2 Puffs 2 (two) times daily. [facility] 2.5 mg /3 mL (0.083 %) nebulizer solution 07-16 00:00: 00 Yes 2.5mg Inhale 3 mL every 4 (four) hours as needed for Wheezing or Shortness of Breath. [facility] budesonide- formoterol 160-4.5 mcg/actuati on inhaler 07-16 00:00: 00 Yes 2{puff} Inhale 2 Puffs 2 (two) times daily. [facility] albuterol 2.5 mg /3 mL (0.083 %) nebulizer solution 07-16 00:00: 00 Yes 2.5mg Inhale 3 mL every 4 (four) hours as needed for Wheezing or Shortness of Breath. [facility] budesonide- formoterol 160-4.5 mcg/actuati on inhaler 07-16 00:00: 00 Yes 2{puff} Inhale 2 Puffs 2 (two) times daily. [facility] albuterol 2.5 mg /3 mL (0.083 %) nebulizer solution 07-16 00:00: 00 Yes 2.5mg Inhale 3 mL every 4 (four) hours as needed for Wheezing or Shortness of Breath. [facility] budesonide- formoterol 160-4.5 mcg/actuati on inhaler 07-16 00:00: 00 Yes 2{puff} Inhale 2 Puffs 2 (two) times daily. [facility] albuterol 2.5 mg /3 mL (0.083 %) nebulizer solution 07-16 00:00: 00 Yes 2.5mg Inhale 3 mL every 4 (four) hours as needed for Wheezing or Shortness of Breath. [facility] budesonide- formoterol 160-4.5 mcg/actuati on inhaler 07-16 00:00: 00 Yes 2{puff} Inhale 2 Puffs 2 (two) times daily. [facility] albuterol 2.5 mg /3 mL (0.083 %) nebulizer solution 07 00:00: 00 Yes 2.5mg Inhale 3 mL every 4 (four) hours as needed for Wheezing or Shortness of Breath. [facility] triamterene -hydrochlor othiazide 37.5-25 mg per capsule 03-26 16:32: 14 Yes 1{capsu le} Take 1 capsule by mouth every morning. [facility] amLODIPine 10 mg tablet 03-26 16:32: 14 Yes 10mg Take 10 mg by mouth at bedtime. [facility] gabapentin 100 mg capsule 03-26 16:32: 14 Yes 100mg Take 100 mg by mouth 2 (two) times daily as needed (MSK pain). [facility] foLIC acid 1 mg tablet 03-26 16:32: 14 Yes 1mg Take 1 mg by mouth daily. [facility] triamterene -hydrochlor othiazide 37.5-25 mg per capsule 03-26 16:32: 14 Yes 1{capsu le} Take 1 capsule by mouth every morning. [facility] amLODIPine 10 mg tablet 03-26 16:32: 14 Yes 10mg Take 10 mg by mouth at bedtime. [facility] gabapentin 100 mg capsule 03-26 16:32: 14 Yes 100mg Take 100 mg by mouth 2 (two) times daily as needed (MSK pain). [facility] foLIC acid 1 mg tablet 03-26 16:32: 14 Yes 1mg Take 1 mg by mouth daily. [facility] triamterene -hydrochlor othiazide 37.5-25 mg per capsule 03-26 16:32: 14 Yes 1{capsu le} Take 1 capsule by mouth every morning. [facility] amLODIPine 10 mg tablet 03-26 16:32: 14 Yes 10mg Take 10 mg by mouth at bedtime. [facility] gabapentin 100 mg capsule 03-26 16:32: 14 Yes 100mg Take 100 mg by mouth 2 (two) times daily as needed (MSK pain). [facility] foLIC acid 1 mg tablet 03-26 16:32: 14 Yes 1mg Take 1 mg by mouth daily. [facility] triamterene -hydrochlor othiazide 37.5-25 mg per capsule 03-26 16:32: 14 Yes 1{capsu le} Take 1 capsule by mouth every morning. [facility] amLODIPine 10 mg tablet 03-26 16:32: 14 Yes 10mg Take 10 mg by mouth at bedtime. [facility] gabapentin 100 mg capsule 03-26 16:32: 14 Yes 100mg Take 100 mg by mouth 2 (two) times daily as needed (MSK pain). [facility] foLIC acid 1 mg tablet 03-26 16:32: 14 Yes 1mg Take 1 mg by mouth daily. [facility] triamterene -hydrochlor othiazide 37.5-25 mg per capsule 03-26 16:32: 14 Yes 1{capsu le} Take 1 capsule by mouth every morning. [facility] triamterene -hydrochlor othiazide 37.5-25 mg per capsule 03-26 16:32: 14 Yes 1{capsu le} Take 1 capsule by mouth every morning. [facility] amLODIPine 10 mg tablet 03-26 16:32: 14 Yes 10mg Take 10 mg by mouth at bedtime. [facility] amLODIPine 10 mg tablet 03-26 16:32: 14 Yes 10mg Take 10 mg by mouth at bedtime. [facility] gabapentin 100 mg capsule 03-26 16:32: 14 Yes 100mg Take 100 mg by mouth 2 (two) times daily as needed (MSK pain). [facility] foLIC acid 1 mg tablet 03-26 16:32: 14 Yes 1mg Take 1 mg by mouth daily. [facility] gabapentin 100 mg capsule 03-26 16:32: 14 Yes 100mg Take 100 mg by mouth 2 (two) times daily as needed (MSK pain). [facility] foLIC acid 1 mg tablet 03-26 16:32: 14 Yes 1mg Take 1 mg by mouth daily. [facility] triamterene -hydrochlor othiazide 37.5-25 mg per capsule 03-26 16:32: 14 Yes 1{capsu le} Take 1 capsule by mouth every morning. [facility] amLODIPine 10 mg tablet 03-26 16:32: 14 Yes 10mg Take 10 mg by mouth at bedtime. [facility] gabapentin 100 mg capsule 03-26 16:32: 14 Yes 100mg Take 100 mg by mouth 2 (two) times daily as needed (MSK pain). [facility] foLIC acid 1 mg tablet 03-26 16:32: 14 Yes 1mg Take 1 mg by mouth daily. [facility] budesonide- formoterol 160-4.5 mcg/actuati on inhaler 03-26 00:00: 00 Yes 2{puff} Inhale 2 Puffs 2 (two) times daily. [facility] budesonide- formoterol 160-4.5 mcg/actuati on inhaler 03-26 00:00: 00 Yes 2{puff} Inhale 2 Puffs 2 (two) times daily. [facility] budesonide- formoterol 160-4.5 mcg/actuati on inhaler 03-26 00:00: 00 Yes 2{puff} Inhale 2 Puffs 2 (two) times daily. [facility] budesonide- formoterol 160-4.5 mcg/actuati on inhaler 03-26 00:00: 00 Yes 2{puff} Inhale 2 Puffs 2 (two) times daily. [facility] budesonide- formoterol 160-4.5 mcg/actuati on inhaler 03-26 00:00: 00 Yes 2{puff} Inhale 2 Puffs 2 (two) times daily. [facility] budesonide- formoterol 160-4.5 mcg/actuati on inhaler 03-26 00:00: 00 Yes 2{puff} Inhale 2 Puffs 2 (two) times daily. [facility] budesonide- formoterol 160-4.5 mcg/actuati on inhaler 03-26 00:00: 00 Yes 2{puff} Inhale 2 Puffs 2 (two) times daily. [facility] Immunizations Ordered Immunization Name Filled Immunization Name Date Status Comments Source SARS-COV-2 COVID-19 PFIZER VACCINE 2021-02-03 00:00:00 Completed [facility] SARS-COV-2 COVID-19 PFIZER VACCINE 2021-02-03 00:00:00 Completed [facility] SARS-COV-2 COVID-19 PFIZER VACCINE 2021-02-03 00:00:00 Completed [facility] SARS-COV-2 COVID-19 PFIZER VACCINE 2021-01-13 00:00:00 Completed [facility] SARS-COV-2 COVID-19 PFIZER VACCINE 2021-01-13 00:00:00 Completed [facility] SARS-COV-2 COVID-19 PFIZER VACCINE 2021-01-13 00:00:00 Completed [facility] Pneumococcal Polysaccharide, PPSV23 (PNEUMOVAX) 2018-03-26 00:00:00 Completed [facility] Influenza Virus Vaccine Quad IM 3+ YRS 2018-03-26 00:00:00 Completed [facility] Pneumococcal Polysaccharide, PPSV23 (PNEUMOVAX) 2018-03-26 00:00:00 Completed [facility] Influenza Virus Vaccine Quad IM 3+ YRS 2018-03-26 00:00:00 Completed [facility] Pneumococcal Polysaccharide, PPSV23 (PNEUMOVAX) 2018-03-26 00:00:00 Completed [facility] Influenza Virus Vaccine Quad IM 3+ YRS 2018-03-26 00:00:00 Completed [facility] Pneumococcal Polysaccharide, PPSV23 (PNEUMOVAX) Unknown Completed [facility] Influenza Virus Vaccine Quad IM 3+ YRS Unknown Completed [facility] SARS-COV-2 COVID-19 PFIZER VACCINE Unknown Completed [facility] SARS-COV-2 COVID-19 PFIZER VACCINE Unknown Completed [facility] Pneumococcal Polysaccharide, PPSV23 (PNEUMOVAX) Unknown Completed [facility] Influenza Virus Vaccine Quad IM 3+ YRS Unknown Completed [facility] SARS-COV-2 COVID-19 PFIZER VACCINE Unknown Completed [facility] SARS-COV-2 COVID-19 PFIZER VACCINE Unknown Completed [facility] Pneumococcal Polysaccharide, PPSV23 (PNEUMOVAX) Unknown Completed [facility] Influenza Virus Vaccine Quad IM 3+ YRS Unknown Completed [facility] SARS-COV-2 COVID-19 PFIZER VACCINE Unknown Completed [facility] SARS-COV-2 COVID-19 PFIZER VACCINE Unknown Completed [facility] Pneumococcal Polysaccharide, PPSV23 (PNEUMOVAX) Unknown Completed [facility] Influenza Virus Vaccine Quad IM 3+ YRS Unknown Completed [facility] SARS-COV-2 COVID-19 PFIZER VACCINE Unknown Completed [facility] SARS-COV-2 COVID-19 PFIZER VACCINE Unknown Completed [facility] Vital Signs Vital Name Observation Time Observation Value Comments S ource Systolic blood pressure 2023-12-23 05:02:00 133 mm[Hg] [facility] Diastolic blood pressure 2023-12-23 05:02:00 84 mm[Hg] [facility] Heart rate 2023-12-23 05:02:00 78 /min [facility] Body temperature 2023-12-23 05:02:00 36.17 Debbie [facility] Respiratory rate 2023-12-23 05:02:00 17 /min [facility] Oxygen saturation in Arterial blood by Pulse oximetry 2023-12-23 05:02:00 91 /min [facility] Body height 2023-12-23 03:45:00 162.6 cm [facility] Body weight 2023-12-23 03:45:00 81.194 kg [facility] BMI 2023-12-23 03:45:00 30.73 kg/m2 [facility] Systolic blood pressure 2023-12-22 02:08:00 143 mm[Hg] [facility] Diastolic blood pressure 2023-12-22 02:08:00 92 mm[Hg] [facility] Heart rate 2023-12-22 02:08:00 81 /min [facility] Respiratory rate 2023-12-22 02:08:00 13 /min [facility] Oxygen saturation in Arterial blood by Pulse oximetry 2023-12-22 02:08:00 95 /min [facility] Body temperature 2023-12-22 01:33:00 36.72 Debbie [facility] Body height 2023-12-22 01:33:00 162.6 cm [facility] Body weight 2023-12-22 01:33:00 81.239 kg [facility] BMI 2023-12-22 01:33:00 30.74 kg/m2 [facility] Systolic blood pressure 2023-11-11 02:00:00 127 mm[Hg] [facility] Diastolic blood pressure 2023-11-11 02:00:00 87 mm[Hg] [facility] Heart rate 2023-11-11 02:00:00 79 /min [facility] Respiratory rate 2023-11-11 02:00:00 20 /min [facility] Oxygen saturation in Arterial blood by Pulse oximetry 2023-11-11 02:00:00 98 /min [facility] Body temperature 2023-11-11 01:31:00 36.28 Debbie [facility] Body height 2023-11-11 01:31:00 162.6 cm [facility] Body weight 2023-11-11 01:31:00 79.379 kg [facility] BMI 2023-11-11 01:31:00 30.04 kg/m2 [facility] Systolic blood pressure 2023-10-27 06:54:00 133 mm[Hg] [facility] Diastolic blood pressure 2023-10-27 06:54:00 94 mm[Hg] [facility] Heart rate 2023-10-27 06:54:00 95 /min [facility] Body temperature 2023-10-27 06:54:00 36.44 Debbie [facility] Respiratory rate 2023-10-27 06:54:00 22 /min [facility] Body height 2023-10-27 06:54:00 162.6 cm [facility] Body weight 2023-10-27 06:54:00 78.472 kg [facility] BMI 2023-10-27 06:54:00 29.70 kg/m2 [facility] Oxygen saturation in Arterial blood by Pulse oximetry 2023-10-27 06:54:00 94 /min [facility] Systolic blood pressure 2022-10-14 19:43:00 111 mm[Hg] [facility] Diastolic blood pressure 2022-10-14 19:43:00 74 mm[Hg] [facility] Heart rate 2022-10-14 19:43:00 98 /min [facility] Body temperature 2022-10-14 19:43:00 36.39 Debbie [facility] Respiratory rate 2022-10-14 19:43:00 22 /min [facility] Oxygen saturation in Arterial blood by Pulse oximetry 2022-10-14 19:43:00 94 /min [facility] Body height 2022-10-14 16:13:00 162.6 cm [facility] Body weight 2022-10-14 16:13:00 81.647 kg [facility] BMI 2022-10-14 16:13:00 30.90 kg/m2 [facility] Systolic blood pressure 2022-03-12 10:13:00 119 mm[Hg] [facility] Diastolic blood pressure 2022-03-12 10:13:00 75 mm[Hg] [facility] Heart rate 2022-03-12 10:13:00 105 /min [facility] Body temperature 2022-03-12 10:13:00 37.28 Debbie [facility] Respiratory rate 2022-03-12 10:13:00 19 /min [facility] Body height 2022-03-12 10:13:00 162.6 cm [facility] Body weight 2022-03-12 10:13:00 99.791 kg [facility] BMI 2022-03-12 10:13:00 37.76 kg/m2 [facility] Oxygen saturation in Arterial blood by Pulse oximetry 2022-03-12 10:13:00 96 /min [facility] Systolic blood pressure 2022-02-20 11:57:00 155 mm[Hg] [facility] Diastolic blood pressure 2022-02-20 11:57:00 88 mm[Hg] [facility] Heart rate 2022-02-20 11:57:00 105 /min [facility] Respiratory rate 2022-02-20 11:57:00 18 /min [facility] Oxygen saturation in Arterial blood by Pulse oximetry 2022-02-20 11:57:00 100 /min [facility] Body temperature 2022-02-20 09:25:00 37 Debbie [facility] Body height 2022-02-20 09:25:00 162.6 cm [facility] Body weight 2022-02-20 09:25:00 96.163 kg [facility] BMI 2022-02-20 09:25:00 36.39 kg/m2 [facility] Procedures Procedure Date / Time Performed Performing Clinician Source LIPASE 2023-12-23 04:17:00 Tyler Rowe [facility] COMP. METABOLIC PANEL ([id number]) 2023-12-23 04:17:00 Tyler Rowe [facility] CBC WITH DIFF 2023-12-23 04:17:00 [facility] 2023-12-23 04:17:00 Tyler Rowe Un [facility] CONSENT/REFUSAL FOR DIAGNOSIS AND TREATMENT 2023-12-23 03:40:32 Doctor Unassigned, [place] [facility] CT ABDOMEN PELVIS W CONTRAST 2023-12-22 02:31:05 Melinda Maciel [facility] LIPASE 2023-12-22 01:58:00 Melinda Maciel [facility] COMP. METABOLIC PANEL (93179) 2023-12-22 01:58:00 Melinda Maciel [facility] ETHANOL 2023-12-22 01:58:00 Melinda Maciel [facility] CBC WITH DIFF 2023-12-22 01:58:00 Melinda Maciel [facility] PROTHROMBIN TIME / INR 2023-12-22 01:58:00 Wali Maciel [facility] URINALYSIS 2023-12-22 01:58:00 [facility] CONSENT/REFUSAL FOR DIAGNOSIS AND TREATMENT 2023-12-22 01:19:14 Doctor Unassigned, [place] [facility] NOTICE OF PRIVACY PRACTICES 2023-11-11 01:24:24 Doctor Unassigned, [place] [facility] CONSENT/REFUSAL FOR DIAGNOSIS AND TREATMENT 2023-11-11 01:23:54 Doctor Unassigned, [place] [facility] COVID-19 (ID NOW RAPID TESTING) 2023-10-27 07:09:00 Jac Navarro [facility] NOTICE OF PRIVACY PRACTICES 2023-10-27 06:49:48 Doctor Unassigned, [place] [facility] CONSENT/REFUSAL FOR DIAGNOSIS AND TREATMENT 2023-10-27 06:47:40 Doctor Unassigned, [place] [facility] CT ABDOMEN PELVIS W CONTRAST 2022-10-14 17:33:00 Melinda Maciel [facility] XR CHEST 1 VW 2022-10-14 17:10:37 Singer [facility] TROPONIN I 2022-10-14 16:37:00 [facility] COMP. METABOLIC PANEL ([id number]) 2022-10-14 16:37:00 Melinda Maciel [facility] CBC WITH DIFF 2022-10-14 16:37:00 Melinda Maciel [facility] PROTHROMBIN TIME / INR 2022-10-14 16:37[facility]00 [facility] 2022-10-14 16:37:00 [facility] N-TERMINAL PRO-BNP 2022-10-14 16:37:00 Singer [facility] CONSENT/REFUSAL FOR DIAGNOSIS AND TREATMENT 2022-10-14 15:56:36 Doctor Unassigned, [place] [facility] CONSENT/REFUSAL FOR DIAGNOSIS AND TREATMENT 2022-03-12 10:03:12 Doctor Unassigned, [place] [facility] XR CHEST 1 VW 2022-02-20 09:59:00 Christy Holliday [facility] LIPASE 2022-02-20 09:30:00 Christy Holliday [facility] TROPONIN I 2022-02-20 09:30:00 Christy Holliday [facility] COMP. METABOLIC PANEL (67008) 2022-02-20 09:30:00 Christy Holliday [facility] CBC WITH DIFF 2022-02-20 09:30:00 Christy Holliday [facility] N-TERMINAL PRO-BNP 2022-02-20 09:30:00 Christy Holliday [facility] NOTICE OF PRIVACY PRACTICES 2022-02-20 09:15:02 Doctor Unassigned, [place] [facility] CONSENT/REFUSAL FOR DIAGNOSIS AND TREATMENT 2022-02-20 09:14:47 Doctor Unassigned, [place] [facility] Encounters Start Date/Time End Date/Time Encounter Type Admission Type Attending [facility] Care Facility Care Department Encounter ID Source 2023-12-22 21:51:00 2023-12-22 23:13:00 [facility] [id number] [facility] 2023-12-22 21:51:00 2023-12-22 23:13:00 Emergency Jenniferjuan alberto Trevblade [facility] [id number] 350.1.13.10 4.2.7.2.686 [id number] [facility] 2023-12-21 19:36:00 2023-12-21 21:52:00 Emergency X MELINDA MACIEL [facility] ERT [id number] [facility] 2023-12-21 19:36:00 2023-12-21 21:52:00 Emergency Melinda Maciel [facility] [id number] 350.1.13.10 4.2.7.2.686 [id number] [id number] [facility] 2023-11-10 19:29:00 2023-11-10 20:14:00 Emergency X CHRISTY HOLLIDAY [facility] ERT [id number] [facility] 2023-11-10 19:29:00 2023-11-10 20:14:00 Emergency Christy Holliday [facility] [id number] 350.1.13.10 4.2.7.2.686 [id number] [id number] [facility] 2023-10-27 00:49:00 2023-10-27 01:41:00 Emergency X ROBERTO NAVARRONT [facility] ERT [id number] [facility] 2023-10-27 00:49:00 2023-10-27 01:41:00 Emergency Jac Navarro [facility] [id number] 350.1.13.10 4.2.7.2.686 [id number] [id number] [facility] 2023-07-15 00:00:00 2023-07-15 00:00:00 Outpatient DAIREN LOBO [id number] Maria Elena [facility] 2023-06-16 11:30:00 2023-06-16 11:30:00 Outpatient DARIEN LOBO [id number] Maria Elena [facility] 2023-05-18 00:00:00 2023-05-18 00:00:00 Outpatient MARIA ELENA CHAN [id number] Maria Elena [facility] 2022-10-14 10:07:00 2022-10-14 14:39:00 Emergency X MELINDA MACIEL [facility] ERT [id number] [facility] 2022-10-14 10:07:00 2022-10-14 14:39:00 Emergency Melinda Maciel [facility] [id number] 350.1.13.10 4.2.7.2.686 [id number] [facility] 2022-03-12 05:15:00 2022-03-12 06:41:00 Emergency X CHRISTY HOLLIDAY [facility] ERT [id number] [facility] 2022-03-12 05:15:00 2022-03-12 06:41:00 Emergency Christy Holliday [facility] [id number] 350.1.13.10 4.2.7.2.686 [id number] [facility] 2022-02-20 04:17:00 2022-02-20 07:16:00 Emergency X CHRISTY HOLLIDAY [facility] ERT [id number] [facility] 2022-02-20 04:17:00 2022-02-20 07:16:00 Emergency Christy Holliday [facility] [id number] 350.1.13.10 4.2.7.2.686 [id number] [id number] [facility] 2021-02-03 11:10:00 2021-02-03 11:10:00 Outpatient DENISE CAMPO [facility] [id number] [facility] 2021-01-13 11:20:00 2021-01-13 11:20:00 Outpatient [facility] [id number] [facility] 2020-11-10 08:20:00 2020-11-10 08:20:00 Outpatient KARLEY ESTRADA [facility] [id number] [facility] Results Test Description Test Time Test Comments Results Result Co mments Source [facility]:53:26* Test Item Value Reference Range Interpretation Comme nts LIPASE (test code = 8388101112) 105 U/L 0-220 Lab Interpretation (test cod e = 03854-8) Normal [facility] [id number] 04:34:24* Test Item Value Reference Range Interpretation Comme nts WBC (test code = 6690-2) 9.68 4.20-10.70 RBC (test code = 789-8) 3.70 4.26-5.52 L HGB (test code = 718-7) 12.4 g/dL 12.2-16.4 HCT (test code = 4544-3) 37.6 % 38.4-49.3 L MCV (test code = 787-2) 101.6 fL 81.7-95.6 H MCH (test code = 785-6) 33.5 pg 26.1-32.7 H MCHC (test code = 786-4) 33.0 g/dL 31.2-35.0 RDW-SD (test code = 83300-4) 50.9 fL 38.5-51.6 RDW-CV (test code = 788-0) 13.7 % 12.1-15.4 PLT (test code = 777-3) 232 150-328 MPV (test code = 23214-8) 8.7 fL 9.8-13.0 L NRBC/100 WBC (test code = 1917074824) 0.0 0.0-10.0 NRBC x10^3 (test code = 6577119282) See_Comment [Automated messa ge] The system which generated this result transmitted reference range: 10*3/?L. The reference range was not used to interpret this result as normal/abnormal. GRAN MAT (NEUT) % (test code = 770-8) 58.8 % IMM GRAN % (test code = 7650182692) 0.90 % LYMPH % (test code = 736-9) 27.8 % MONO % (test code = 5905-5) 10.5 % EOS % (test code = 713-8) 1.3 % BASO % (test code = 706-2) 0.7 % GRAN MAT x10^3(ANC) (test code = 9108274656) 5.68 10*3/uL 1.99-6.95 IMM GRAN x10^3 (test code = 5533636826) 0.09 10*3/uL 0.00-0.06 H LYMPH x10^3 (test code = 731-0) 2.69 10*3/uL 1.09-3.23 MONO x10^3 (test code = 742-7) 1.02 10*3/uL 0.36-1.02 EOS x10^3 (test code = 711-2) 0.13 10*3/uL 0.06-0.53 BASO x10^3 (test code = 704-7) 0.07 10*3/uL 0.01-0.09 Lab Interpretation (test code = 36946-4) [facility]normal [facility] [id number] 03:32:43Exam: CT Abdomen and Pelvis With Contrast, 12/21/2023 7:45 PM. Ordering Physician: MELINDA MACIEL. History: Diverticulitis, complication suspected . Comparison: CT abdomen pelvis 10/14/2022. Technique:CT abdomen and pelvis was obtained with intravenous contrast. CTwas performed according to ALARA (As Low As Reasonably Achievable). Technical Quality: Adequate. Findings: LOWER CHEST:Mild bibasilar atelectasis. ABDOMEN/PELVIS:Liver: No focal lesions. Falciform ligament fatty replacement.Gallbladder/biliary: Normal gallbladder. No biliary ductal dilation.Pancreas: Normal.Spleen: Normal. Adrenal glands: Normal.Kidneys and ureters: Symmetric enhancement. 2 mm stone in the left upperpole. No hydroureteronephrosis. No ureter stones. Mild stranding about theleft mid ureter.Bladder: Diffuse wall thickeningReproductive organs: Normal for age. Stomach/bowel: No bowel obstruction. No bowel wall thickening. Normalappendix. Large bowel demonstrates scattered diverticula without focalstranding. Thickening of the descending colon and rectal vault. Lymph nodes: No lymphadenopathy.Peritoneum: No intraperitoneal free air. No intraperitoneal free fluid.Vessels: Atherosclerosis without aneurysm. MUSCULOS KELETAL:Bones: No acute osseous abnormality.Soft tissues: Small fat-containing inguinal hernias.[facility] 02:32:24* Test Item Value Reference Range Interpretation Comme nts ALCOHOL (test code = 6020959189) 117 mg/dL LOUISE (test code = LOUISE) <10 [id number] Toxic>100 Depression of [employer]>400 Fatalities Reported [facility] (13674)2023-12-22 02:31:43* Test Item Value Reference Range Interpretation Comme nts NA (test code = 6649925597) 133 mmol/L 135-145 L K (test code = 3902712289) 3.3 mmol/L 3.5-5.0 L CL (test code = 8253036037) 102 mmol/L 98-108 CO2 TOTAL (test code = 8046418695) 25 mmol/L 23-31 AGAP (test code = 7816795583) 6 2-16 BUN (test code = 9336994979) 11 mg/dL 7-23 GLUCOSE (test code = 7643700900) 75 mg/dL 70-110 CREATININE (test code = 8465458474) 0.51 mg/dL 0.60-1.25 L TOTAL BILI (test code = 3714320372) 0.5 mg/dL 0.1-1.1 CALCIUM (test code = 7690096858) 8.9 mg/dL 8.6-10.6 T PROTEIN (test code = 8915620519) 7.2 g/dL 6.3-8.2 ALBUMIN (test code = 5411335857) 4.5 g/dL 3.5-5.0 ALK PHOS (test code = 6684696416) 46 U/L 34-122 ALTv (test code = 1742-6) 15 U/L 5-50 AST(SGOT) (test code = 1589566972) 24 U/L 13-40 eGFR (test code = 12570-0) 119.7 mL/min/1.73m2 CKD-EPI eGFR (2020). Assuming creatinine has been stable day-to-day for at least three months, the eGFR indicates Category G1 (>= 90 mL/min/1.73 m2) Lab Interpretation (test code = 87614-1) [facility]normal [facility] 02:31:43* Test Item Value Reference Range Interpretation Comme nts LIPASE (test code = 3466996705) 121 U/L 0-220 Lab Interpretation (test cod e = 53877-6) Normal [facility] CenterProth[facility]bin Time / [id number] 02:21:02* Test Item Value Reference Range Interpretation Comme nts PROTIME PATIENT (test code = 5964-2) 10.5 10.1-12.6 INR (test code = 6301-6) 0.9 Normal INR <1.1; Warfarin Therapeutic range 2.0 to 3.0 or 2.5 to 3.5, depending upon the indications. Lab Interpretation (test code = 29687-8) Normal [facility] with [id number] 02:14:04* Test Item Value Reference Range Interpretation Comme nts WBC (test code = 6690-2) 13.57 4.20-10.70 H RBC (test code = 789-8) 3.82 4.26-5.52 L HGB (test code = 718-7) 12.8 g/dL 12.2-16.4 HCT (test code = 4544-3) 37.7 % 38.4-49.3 L MCV (test code = 787-2) 98.7 fL 81.7-95.6 H MCH (test code = 785-6) 33.5 pg 26.1-32.7 H MCHC (test code = 786-4) 34.0 g/dL 31.2-35.0 RDW-SD (test code = 65638-1) 49.1 fL 38.5-51.6 RDW-CV (test code = 788-0) 13.5 % 12.1-15.4 PLT (test code = 777-3) 260 150-328 MPV (test code = 60053-9) 8.7 fL 9.8-13.0 L NRBC/100 WBC (test code = 8250852899) 0.0 0.0-10.0 NRBC x10^3 (test code = 8255506663) See_Comment [Automated messa ge] The system which generated this result transmitted reference range: 10*3/?L. The reference range was not used to interpret this result as normal/abnormal. GRAN MAT (NEUT) % (test code = 770-8) 64.3 % IMM GRAN % (test code = 9673828945) 0.90 % LYMPH % (test code = 736-9) 24.2 % MONO % (test code = 5905-5) 9.1 % EOS % (test code = 713-8) 0.7 % BASO % (test code = 706-2) 0.8 % GRAN MAT x10^3(ANC) (test code = 0937089393) 8.73 10*3/uL 1.99-6.95 H IMM GRAN x10^3 (test code = 7151888051) 0.12 10*3/uL 0.00-0.06 H LYMPH x10^3 (test code = 731-0) 3.28 10*3/uL 1.09-3.23 H MONO x10^3 (test code = 742-7) 1.23 10*3/uL 0.36-1.02 H EOS x10^3 (test code = 711-2) 0.10 10*3/uL 0.06-0.53 BASO x10^3 (test code = 704-7) 0.11 10*3/uL 0.01-0.09 H Lab Interpretation (test code = 51157-6) Abnormal [facility] [id number] 10:16:22* Test Item Value Reference Range Interpretation Comments TROPONIN I (test code = 8283317355) 0.007 ng/mL See_Comment [Automated message] The system which generated this result transmitted reference range: <=0.034. The reference range was not used to interpret this result as normal/abnormal. LOUISE (test code = LOUISE) Reference (Normal) [...] of biotin. Lab Interpretation (test code = 36585-3) Normal [facility] [id number] 10:13:01* Test Item Value Reference Range Interpretation Comme nts NT-proBNP (test code = 7477292648) 52 pg/mL See_Comment [Automated message] The system which generated this result transmitted reference range: <=125. The reference range was not used to interpret this result as normal/abnormal. LOUISE (test code = LOUISE) Biotin has been reported to cause a negative bias, interpret results relative to patient's use of biotin. Lab Interpretation (test code = 47832-2) Normal [facility]. METABOLIC PANEL ([id number])2022-02-20 10:04:02* Test Item Value Reference Range Interpretation Comme nts NA (test code = 4571020213) 137 mmol/L 135-145 K (test code = 2971685776) 3.6 mmol/L 3.5-5.0 CL (test code = 5753594713) 99 mmol/L 98-108 CO2 TOTAL (test code = 7013098104) 25 mmol/L 23-31 AGAP (test code = 8845514624) 2-16 BUN (test code = 4108329478) 6 mg/dL 7-23 L GLUCOSE (test code = 5807813178) 88 mg/dL 70-110 CREATININE (test code = 0930009968) 0.55 mg/dL 0.60-1.25 L TOTAL BILI (test code = 4603629020) 0.8 mg/dL 0.1-1.1 CALCIUM (test code = 7386426247) 8.9 mg/dL 8.6-10.6 T PROTEIN (test code = 4041365842) 7.5 g/dL 6.3-8.2 ALBUMIN (test code = 4346740611) 4.8 g/dL 3.5-5.0 ALK PHOS (test code = 1030253186) 113 U/L 34-122 ALTv (test code = 1742-6) 84 U/L 5-50 H AST(SGOT) (test code = 6220598971) 107 U/L 13-40 H eGFR (test code = 9754738930) mL/min/1.73m2 LOUISE (test code = LOUISE) Association [...] imaging tests). Lab Interpretation (test code = 30283-7) [facility]37[facility]-29 10:03:21* Test Item Value Reference Range Interpretation Comme nts LIPASE (test code = 0812330513) 193 U/L 0-220 Lab Interpretation (test cod e = 04914-7) [facility] JYPV2601-88-31 09:39:17* Test Item Value Reference Range Interpretation Comme nts WBC (test code = 6690-2) See_Comment [Automated [employer]] The system which generated this result transmitted reference range: 4.20 - 10.70 10*3/?L. The reference range was not used to interpret this result as normal/abnormal. RBC (test code = 789-8) See_Comment [Automated [employer]] The system which generated this result transmitted [...] g/dL 31.2-35.0 H RDW-SD (test code = 84112-2) 44.4 fL 38.5-51.6 RDW-CV (test code = 788-0) 11.9 % 12.1-15.4 L PLT (test code = 777-3) See_Comment [Automated messa ge] The system which generated this result transmitted reference range: 150 - 328 10*3/?L. The reference range was not used to interpret this result as normal/abnormal. MPV (test code = 20633-1) 9.2 fL 9.8-13.0 L NRBC/100 WBC (test code = 7106273770) See_Comment [Automated mth sense ssage] The system which generated this result transmitted reference range: 0.0 - 10.0 /100 WBCs. The reference range was not used to interpret this result as normal/abnormal. NRBC x10^3 (test code = 8298731828) <0.01 See_Comment [Automated [employer] ge] The system which generated this result transmitted reference range: 10*3/?L. The reference range was not used to interpret this result as normal/abnormal. GRAN MAT (NEUT) % (test code = 770-8) 69.9 % IMM GRAN % (test code = 1173900166) 1.50 % LYMPH % (test code = 736-9) 18.9 % MONO % (test code = 5905-5) 7.0 % EOS % (test code = 713-8) 1.9 % BASO % (test code = 706-2) 0.8 % GRAN MAT x10^3(ANC) (test code = 5197491302) 7.15 10*3/uL 1.99-6.95 H IMM GRAN x10^3 (test code = 0441336475) 0.15 10*3/uL 0.00-0.06 H LYMPH x10^3 (test code = 731-0) 1.93 10*3/uL 1.09-3.23 MONO x10^3 (test code = 742-7) 0.72 10*3/uL 0.36-1.02 EOS x10^3 (test code = 711-2) 0.19 10*3/uL 0.06-0.53 BASO x10^3 (test code = 704-7) 0.08 10*3/uL 0.01-0.09 Lab Interpretation (test code = 35069-8) Abnormal [facility] Notes Date/Time Note Provider Source 2023-12-22 23:12:16 OfR1+twCqhBygC6MIlXT 3biLOxh2OmFQrH 6sBUzIxpsrFKAlRvDv15u3CkSaq9hS3859 -02-13T23:12:16 Pt given printed and verbal discharge instructions regarding generalized abdominal pain, external hemorrhoid, proctitis, colitis, hypokalemia and encouraged hydration,Prescriptions sent to pharmacyDiscussed antibiotic therapy and to take until all completed unless adverse reaction occurs - if occurs, discontinue medication and follow up with pcp/seek medical attentionPt verbalized understanding of instructions, pt awake alert oriented, resp reg unlabored, skin w/d, color appropriate for race, moves all ext well,pt encouraged to follow up with pcpAdvised to seek medical attention for new/prolonged/worsening of symptoms.No adverse reaction to meds given in ER noted upon dischargePIV d'cd, dressing to site, catheter in tact.Awake, alert oriented, resp reg unlabored, skin w/d, pt leaving amb with steady gait, in no apparent distress, 51366-2Qabwdpapb department KjolMU3719-37-79J41:13:50Emergency department NoteTXT1.2.840.170624.1.13.104.2.7 .2.850916|[id number] for patient ejxs08776-2XdsgQQDIYWFMSXEHagyewkd d C-CDA narrative [id number] Magaña RNUT[id number] 42KIYRVAPAKQHNLXWUCUGPIQ5603-37-52 T23:13:501.2.840.833860.1.72.3.15| 1.2.840.153886.1.13.104.2.7.2.7278 [id number] Mary Machado Gómez MACHUCA [facility] 2023-12-22 21:41:55 pRFvD0VhnC51YnKigjgq zKNaWFMPPWejXF owGCFKSbfwjzYuxCucr8k+8+ZMS2K78719 -02-13T21:41:55 Pt arrives ambulatory to ED reporting bleeding with stools and 10/10 abdominal pain. States he was here last night but had to leave before receiving results d/t having to work. Says the pain became worse so he came back in. 79797-2Lzamxivib department Triage jggiHD5801-69-68O66:48:52[facility] Triage noteTXT1.2.840.995552.1.13.104.2.7 .2.058186|[id number] for patient reej39346-3Dsddavcjk department NoteLNNARRATIVEFormatted C-CDA narrative [id number] L Williams RNUT[address] LkarBmjqidsndHpnxdlfwvYLYU74387569 84PHCJGIDMVNMCZSYGBJYXVP8349-94-80 T21:48:521.2.840.761114.1.72.3.15| 1.2.840.534441.1.13.104.2.7.2.7278 [id number] Leah Lizama RN [facility] 2023-12-21 21:31:00 Kr5MpGpIF+p8NmB1uZ/K Y6I7Vyvt94Fb1g 311zog+QHdVROMW0V+fkf4Zg1e8u6P0485 -02-12T21:31:00 Patient leaving AMA,discussed risks of leaving against medical advice, Dr. Maciel aware and notified of patient's decision.Patient encouraged to seek medical attention for any new/prolonged/worsening of symptoms and stressed importance of follow up with a medical provider as soon as possible. AMA form explained, patient signed form.IV d'cd, dressing to site.Patient leaving ambulatory with steady gait, appears in no distress. 14283-0Aochdgssg department BettSB0627-96-14E58:38:39[facility] department NoteTXT1.2.840.988016.1.13.104.2.7 .2.569266|[id number] for patient beyr04366-4ZjvsKBZQDDMKLHPYuwkvghd d C-CDA narrative [id number] Magaña RN[address]vdG[id number] 56MCSETMLQLDBAUDXFOUTSJY6654-68-90 T21:38:391.2.840.401095.1.72.3.15| 1.2.840.609209.1.13.104.2.7.2.7278 [id number] Mary Magaña RN [facility] 2023-12-21 21:30:00 5Pw6Kf+XexB8OXK86jyd vKmiJwJiOPCAma a1x3LR+ijLPH1eN6VS18mEB/ndCewS1634 -02-12T21:30:00 Pt wished to leave AMA. Pt states " yall were wonderful but 3am come real early." 03863-8Sdaruqrdp department LyoqOS7698-88-99V62:36:58[facility] department NoteTXT1.2.840.624015.1.13.104.2.7 .2.596392|[id number] for patient vmfn83430-9NvahHPANNRBOIUGOzmfkoff d C-CDA narrative textUT[address] [id number] 39RRKLQFUBCJZCRTBZHLZJRX1664-18-08 T21:36:581.2.840.368456.1.72.3.15| 1.2.840.992767.1.13.104.2.7.2.7278 [id number] [facility] 2023-12-21 21:26:22 QFcnuVvDsrDwiwIR0f9A uLzHbDQAbxoOsF G6PWZfU3dOIu3faj0VEwTL9h8OuCzv3198 -02-12T21:26:22 Pt asking to go outside and smoke, wants to go home and eat. Pt educated on risks of leaving AMA. Provider informed pt is in pain. 15629-4Ldeiokyed department RrpaKA3055-11-06B76:33:35[facility] department NoteTXT1.2.840.167063.1.13.104.2.7 .2.199444|[id number] for patient jgjj69863-8KnuvFBIVKZPFUFMGgtgesaq d C-CDA narrative buzb957112756Uxwsrf R Shehadeh RNUT[address] [id number] 72EYMUBTWFUFEHPSZXRQREIP8102-13-06 T21:33:351.2.840.898492.1.72.3.15| 1.2.840.650412.1.13.104.2.7.2.7278 [id number] Leah King RN [facility] 2023-12-21 19:31:50 7ux9+4aiHCz8UxvmD3aB N0hDSdHRf5fKiv wXkQVmrL9pgNeBf5nTtIRi0nl+VPjU49902023T19:31:50 Pt arrived ambulatory with complaints of bright red rectal bleeding and generalized abdominal pain this afternoon. Pt states his stool was normal consistency but continuous bright red blood. Denies this happening before.Pt is an alcoholic, had 2 beer COREMAKER. States he vomits all the time but not something new today. 97726-0Jqlujhtdk department Triage sgkwSN1975-84-60U46:33:28[facility] department Triage noteTXT1.2.840.091682.1.13.104.2.7 .2.422535|[id number] for patient bjet82295-5Jwckmhwqy department NoteLNNARRATIVEFormatted C-CDA narrative [id number] D Roman RNUT[address] QpldRhsvgyvygBicwkjnpvHLBP50750391 94OJQYEDVPUVLQUJSYOVYSFT8974-86-30 T19:33:281.2.840.541802.1.72.3.15| 1.2.840.572396.1.13.104.2.7.2.7278 [id number] Gabi Esqueda RN [facility] 2023-11-10 20:13:39 jdMwrBTRFk5UnbBOJPn3 DspE97a/TlPnCn 4hne/XY487fS4AKsPpVMd2andJNfbH7491 -01-02T20:13:39 Pt requesting to leave AMA. ERP notified. Pt counseled to remain, risks of leaving AMA including discussed with pt. Pt continued to decline further ER evaluation at this time. AMA papers signed, witnessed, and placed on patient's chart. Pt left ambulatory. VS stable, no ataxia noted, GCS 15, A&Ox4. 20450-4Hsbqgkvyw department AcpiUR4953-61-76T31:13:52[facility] department NoteTXT1.2.840.268309.1.13.104.2.7 .2.135435|[id number] for patient irst38617-7QqblKDGTWLIZQVNUasxckrg d C-CDA narrative [id number] R Goodrich RN[id number] 34MTZNYWDMDOJPLFPAXKFNGA7834-90-34 T20:13:521.2.840.157017.1.72.3.15| 1.2.840.659788.1.13.104.2.7.2.7278 [id number] Briseida Medrano RN [facility] 2023-11-10 19:30:29 o2Or5/OaU3l0E1nvs+7H HtdmVtxF/EYpEt yJWKTojF3VDqU/rsZl22nBc2BZ9f0g1993 -11-10T19:30:29 Patient arrived to ED c/o SOB and COPD exacerbation. Symptoms started this morning. Patient wears 3L NC at home. Patient is a smoker. Patient states having the chills, diarrhea, and vomiting. States having sharp pains in chest from coughing. 56860-3Klbcytxar department Triage dypwLU5796-51-06S10:35:27[facility] department Triage noteTXT1.2.840.494799.1.13.104.2.7 .2.870319|[id number] for patient vbct43817-0Yniwxmiec department NoteLNNARRATIVEFormatted C-CDA narrative [id number]-Udnoq McInnis RN[id number] 04UBVOUGIIEFYBPSBVUUTHFF2504-83-49 T19:35:271.2.840.775046.1.72.3.15| 1.2.840.746168.1.13.104.2.7.2.7278 [id number] Sreedhar Gomez RN [facility]
[2023-12-28 23:01] LABS: Absolute Lymphocytes (CBC) 1.3 K/uL (0.7-4.9); Hematocrit 37.6 % (39.6-49.0); MCV 100.7 fL (80-100); MPV 6.7 fL (7.6-11.3); Platelets 273 thou/uL (152-406); RBC Red Blood Cell Count 3.74 M/uL (4.33-5.43)
[2023-12-28 23:03] LABS: Albumin 3.8 g/dL (3.4-5.0); Bilirubin Direct 0.1 mg/dL (0-0.2); Bilirubin Indirect, Calculated 0.2 mg/dL (0.2-0.8); Bilirubin Total 0.3 mg/dL (0.2-1.0); Magnesium 2.1 mg/dL (1.6-2.4); Potassium 3.7 mEq/L (3.5-5.1); Protein, Total 7.2 g/dL (6.4-8.2); Troponin High Sensitivity 6.1 pg/mL (<58.9)
[2023-12-28 23:22] LABS: Protime INR 0.91
--- NOTE | 2023-12-29 00:51 | ER ---
Nurse's Notes [facility] Name: Randy Briones Age: 53 yrs Sex: Male : 1970 Arrival Date: 12/28/2023 Time: 20:54 Bed IW8 Private MD: Diagnosis: COPD/ Chronic obstructive pulmonary disease with (acute) exacerbation;Abdominal pain, Generalized;Dyspnea, unspecified;Tobacco use disorder Presentation: 12/28 21:12 Chief complaint: Patient states: SOB starting today; hx of COPD; pt also complains of km8 ABD due to recent diagnosis of colitis. Coronavirus screen: Client denies travel out of the [place] in the last 14 days. Ebola Screen: No symptoms or risks identified at this time. Initial Sepsis Screen: Does the patient meet any 2 criteria? RR > 20 per min. Does the patient have a suspected source of infection? No. Patient's initial sepsis screen is negative. Risk Assessment: Do you want to hurt yourself or someone else? Patient reports no desire to harm self or others. Onset of symptoms was December 28, 2023. 21:12 Method Of Arrival: Ambulatory km8 21:12 Acuity: CANDACE 3 km8 Triage Assessment: 21:13 General: Appears in no apparent distress. uncomfortable, Behavior is cooperative, km8 appropriate for age, anxious. Pain: Complains of pain in chest Pain currently is 10 out of 10 on a pain scale. EENT: No signs and/or symptoms were reported regarding the EENT system. Neuro: Level of Consciousness is awake, alert, obeys commands, Oriented to person, place, time, situation. Cardiovascular: Reports chest pain, shortness of breath, Capillary refill < 3 seconds Patient's skin is warm and dry. Respiratory: Reports shortness of breath Airway is patent Respiratory effort is even, labored, Respiratory pattern is regular, symmetrical, Onset: The symptoms/episode began/occurred today, the patient has moderate shortness of breath. GI: Reports lower abdominal pain, upper abdominal pain. : No signs and/or symptoms were reported regarding the genitourinary system. Derm: Skin is intact, is healthy with good turgor, Skin is dry, Skin is pink, warm \T\ dry. normal, Skin temperature is warm. Musculoskeletal: Range of motion: intact in all extremities. Historical: - Allergies: 21:13 Lisinopril; km8 - PMHx: 21:13 Alcoholism; COPD; home 02 3LNC PRN; Hypertension; km8 - PSHx: 21:13 Amputation of left index finger; km8 - Immunization history:: Client reports receiving the 2nd dose of the Covid vaccine, Flu vaccine is not up to date. - Social history:: Smoking status: Patient reports the use of cigarette tobacco products, smokes two packs cigarettes per day. Patient uses alcohol, on a daily basis. Patient/guardian denies using street drugs. - Family history:: not pertinent. Screenin:30 [facility] ED Fall Risk Assessment (Adult) History of falling in the last 3 months, jj7 including since admission No falls in past 3 months (0 pts) Confusion or Disorientation No (0 pts) Intoxicated or Sedated No (0 pts) Impaired Gait No (0 pts) Mobility Assist Device Used No (0 pt) Altered Elimination No (0 pt) Score/Fall Risk Level 0 - 2 = Low Risk Oriented to surroundings, Maintained a safe environment, Educated pt \T\ family on fall prevention, incl call for assistance when getting out of bed. Abuse screen: Denies threats or abuse. Nutritional screening: No deficits noted. Tuberculosis screening: No symptoms or risk factors identified. Assessment: 21:30 General: Appears in no apparent distress. uncomfortable, Behavior is calm, cooperative, jj7 appropriate for age. Cardiovascular: No deficits noted. Rhythm is regular. Respiratory: Airway is patent Trachea midline Respiratory effort is even, unlabored, Respiratory pattern is regular, symmetrical. GI: Reports lower abdominal pain, upper abdominal pain. Vital Signs: 21:12 BP 145 / 93; Pulse 84; Resp 20; Temp 97.6(TE); Pulse Ox 97% on R/A; Weight 79.38 kg km8 (R); Height 5 ft. 4 in. (R); Pain 10/10; 22:00 BP 121 / 88; Pulse 88; Resp 17; Pulse Ox 100% ; jj7 23:00 BP 138 / 83; Pulse 79; Resp 17; Pulse Ox 94% ; jj7 12/29 00:00 BP 129 / 85; Pulse 81; Resp 17; Pulse Ox 97% ; Pain 0/10; jj7 00:30 BP 131 / 79; Pulse 82; Resp 17; Pulse Ox 98% ; Pain 0/10; jj7 12/28 21:12 Body Mass Index 30.04 (79.38 kg, 162.56 cm) [facility] 12/28 21:12 Pain Scale: Adult [facility] 12/29 00:00 Pain Scale: Adult jj7 00:30 Pain Scale: Adult jj7 Shani Coma Score: 00:56 Eye Response: spontaneous(4). Motor Response: obeys commands(6). Verbal Response: sp4 oriented(5). Total: 15. ED Course: 12/28 20:57 Patient arrived in ED. jj6 20:58 Jose Crews MD is Attending Physician. sp4 21:13 Triage completed. km8 21:13 Arm band placed on right wrist. km8 21:30 Patient has correct armband on for positive identification. Bed in low position. Call jj7 light in reach. Side rails up X 1. Client placed on continuous cardiac and pulse oximetry monitoring. NIBP monitoring applied. property assessment monitor on. 22:39 Inserted saline lock: 20 gauge in left antecubital area, using aseptic technique. Blood oe collected. 22:48 Basic Metabolic Panel Sent. jj7 22:48 CBC with Diff Sent. jj7 22:48 LFT's Sent. jj7 23:54 CT Chest Abdomen Pelvis W/O Contrast In Process Unspecified. EDMS 23:59 Omega Luke, RN is Primary Nurse. jj7 12/29 00:50 No provider procedures requiring assistance completed. IV discontinued, intact, jj7 bleeding controlled, No redness/swelling at site. Pressure dressing applied. Administered Medications: 12/28 22:03 Drug: Albuterol Inhalation 2.5 mg Inhalation every 20 minutes x3 Route: Inhalation; jj7 22:24 Drug: Albuterol Inhalation 2.5 mg Inhalation every 20 minutes x3 Route: Inhalation; jj7 22:40 Drug: predniSONE PO 60 mg PO once Route: PO; jj7 23:30 Follow up: Response: Marked relief of symptoms jj7 22:40 Drug: LORazepam PO 2 mg PO once Route: PO; jj7 23:30 Follow up: Response: Marked relief of symptoms jj7 22:48 Drug: morphine IVP or IV 4 mg IVP once over 4 mins Route: IVP; Infused Over: 4 mins; jj7 Site: left antecubital; 23:00 Follow up: Response: Marked relief of symptoms j7 22:48 Drug: Famotidine IVP 20 mg IVP once; dilute with 10 mL 0.9% NaCl; give over 2 minutes jj7 Route: IVP; Site: left antecubital; 12/29 02:47 Follow up: Response: Marked relief of symptoms jj7 12/28 22:48 Drug: Ondansetron IVP 4 mg IVP once; over 2 minutes Route: IVP; Site: left antecubital; jj7 23:00 Follow up: Response: Marked relief of symptoms j7 22:49 Drug: Albuterol Inhalation 2.5 mg Inhalation every 20 minutes x3 Route: Inhalation; jj7 23:00 Follow up: Response: Marked relief of symptoms jj7 Medication: 21:30 VIS not applicable for this client. jj7 Outcome: 12/29 00:51 Discharge ordered by . letha 00:55 Discharged to home ambulatory, jj7 00:55 Condition: improved 00:55 Discharge instructions given to PT LEFT BEFORE SIGNING DISCHARGE PAPER Instructed on 02:58 Patient left the ED. jj7 Signatures: Dispatcher [employer] EDMS Kentrell Christian Jennifer jj6 Omega Luke RN RN jj7 Jose Crews MD MD sp4 Mary Valenzuela RN RN km8 Corrections: (The following items were deleted from the chart) 00:04 12/28 22:00 BP 121 / ???; Pulse 88bpm; Resp 17bpm; Pulse Ox 100%; jj7 jj7
--- NOTE | 2023-12-29 00:52 | EDPHYS ---
Physician Documentation [facility] Name: Randy Briones Age: 53 yrs Sex: Male : 1970 Arrival Date: 12/28/2023 Time: 20:54 Bed IW8 Private MD: ED Physician Jose Crews HPI: 12/28 20:58 This 53 yrs old Male presents to ER via Unassigned with complaints of sp4 Breathing Difficulty. 12/29 00:54 53-year-old male with past medical history of COPD, history of tobacco use, alcoholism, sp4 hypertension, on home oxygen presents with acute worsening shortness of breath. Patient states he was at work today and inhaled some dust which precipitated worsening shortness of breath. Patient also complains of diffuse abdominal pain of chronic nature. . Historical: - Allergies: 12/28 21:13 Lisinopril; km8 - PMHx: 21:13 Alcoholism; COPD; home 02 3LNC PRN; Hypertension; km8 - PSHx: 21:13 Amputation of left index finger; km8 - Immunization history:: Client reports receiving the 2nd dose of the Covid vaccine, Flu vaccine is not up to date. - Social history:: Smoking status: Patient reports the use of cigarette tobacco products, smokes two packs cigarettes per day. Patient uses alcohol, on a daily basis. Patient/guardian denies using street drugs. - Family history:: not pertinent. ROS: 12/29 00:54 Constitutional: Negative for fever, chills, and weight loss, positive dyspnea, positive sp4 wheezing, positive abdominal pain All other systems are negative, Exam: 00:54 Constitutional: This is a well developed, well nourished patient who is awake, alert, sp4 positive for ill-appearing male, positive for wheezing, positive for facial plethora, nontoxic-appearing Head/Face: Normocephalic, atraumatic. Eyes: Pupils equal round and reactive to light, extra-ocular motions intact. Lids and lashes normal. Conjunctiva and sclera are not injected. Cornea within normal limits. Periorbital areas with no swelling, redness, or edema. ENT: Nares patent. No nasal discharge, no septal abnormalities noted. Tympanic membranes are normal and external auditory canals are clear. Oropharynx with no redness, swelling, or masses, exudates, or evidence of obstruction, uvula midline. Mucous membranes moist. Neck: Trachea midline, no thyromegaly or masses palpated, and no cervical lymphadenopathy. Supple, full range of motion without nuchal rigidity, or vertebral point tenderness. Chest/axilla: Normal chest wall appearance and motion. Nontender with no deformity. No lesions are appreciated. Cardiovascular: Regular rate and rhythm with a normal S1 and S2. No gallops, murmurs, or rubs. Normal PMI, no JVD. No pulse deficits. Respiratory: Lungs have equal breath sounds bilaterally, positive bilateral scattered wheezes on auscultation with no rales, rhonchi noted. No increased work of breathing, no retractions or nasal flaring. Abdomen/GI: Soft, with normal bowel sounds. No distension or tympany. No guarding or rebound. No evidence of tenderness throughout. Back: No spinal tenderness. No costovertebral tenderness. Skin: Warm, dry with normal turgor. Normal color with no rashes, no lesions, and no evidence of cellulitis. MS/ Extremity: Pulses equal, no cyanosis. Neurovascular intact. Full, normal range of motion. Neuro: Awake and alert, GCS 15, oriented to person, place, time, and situation. Cranial nerves II-XII grossly intact. Motor strength 5/5 in all extremities. Sensory grossly intact. Psych: Awake, alert, with orientation to person, place and time. Behavior, mood, and affect are within normal limits 00:56 ECG was reviewed by the Attending Physician. EKG at 2158 reveals normal sinus rhythm at sp4 rate of 73 Vital Signs: 12/28 21:12 BP 145 / 93; Pulse 84; Resp 20; Temp 97.6(TE); Pulse Ox 97% on R/A; Weight 79.38 kg km8 (R); Height 5 ft. 4 in. (R); Pain 10/10; 22:00 BP 121 / 88; Pulse 88; Resp 17; Pulse Ox 100% ; jj7 23:00 BP 138 / 83; Pulse 79; Resp 17; Pulse Ox 94% ; jj7 12/29 00:00 BP 129 / 85; Pulse 81; Resp 17; Pulse Ox 97% ; Pain 0/10; jj7 00:30 BP 131 / 79; Pulse 82; Resp 17; Pulse Ox 98% ; Pain 0/10; jj7 12/28 21:12 Body Mass Index 30.04 (79.38 kg, 162.56 cm) 8 12/28 21:12 Pain Scale: Adult km8 12/29 00:00 Pain Scale: Adult jj7 00:30 Pain Scale: Adult jj7 [place] Coma Score: 00:56 Eye Response: spontaneous(4). Motor Response: obeys commands(6). Verbal Response: sp4 oriented(5). Total: 15. MDM: 12/28 21:23 Patient medically screened. sp4 12/29 00:50 ED course: COMPARISON: CT November 30, 2023 FINDINGS: ARTIFACTS: The exam is suboptimal sp4 secondary to motion artifact. CHEST: LUNGS: The lungs are clear of focal opacity, mass, or consolidation. PLEURAL SPACE: Unremarkable. No significant effusion. No pneumothorax. HEART: No cardiomegaly. No pericardial effusion. ABDOMEN: LIVER: The liver is enlarged and mildly fatty. GALLBLADDER AND BILE DUCTS: No calcified stones. No ductal dilation. PANCREAS: Unremarkable. No ductal dilation. SPLEEN: Unremarkable. ADRENALS: Unremarkable. No mass. KIDNEYS AND URETERS: Punctate left intrarenal calcification is present. There is no hydronephrosis or hydroureter of either kidney. No obstructing renal or ureteral calculus is seen. STOMACH AND BOWEL: The stomach is decompressed. The small bowel is relatively normal in caliber. Stool is present throughout the colon. There is no mucosal thickening or evidence of obstruction. PELVIS: APPENDIX: The appendix is normal in caliber without surrounding inflammation. BLADDER: The bladder is well distended. No stones. REPRODUCTIVE: Calcifications are present within the prostate. CHEST, ABDOMEN and PELVIS: INTRAPERITONEAL SPACE: Unremarkable. No significant fluid collection. No free air. BONES/JOINTS: No acute fracture. SOFT TISSUES: The soft tissues are normal. VASCULATURE: Atherosclerosis of the vasculature is present. The vessels are normal in caliber. No aortic aneurysm. LYMPH NODES: Unremarkable. No enlarged lymph nodes. IMPRESSION: No acute findings on this noncontrasted CT of the chest, abdomen and pelvis to explain the patient's symptoms. . 00:56 Differential diagnosis: Anxiety Reaction asthma, Bronchitis CHF exacerbation, Chronic sp4 Obstructive Pulmonary Disease. Data reviewed: vital signs, nurses notes, old medical records, lab test result(s), EKG, radiologic studies, plain films. 00:56 ED course: Patient has improved after management in the emergency department. CT chest sp4 abdomen pelvis is unremarkable. Patient is stable for discharge home with prednisone and Ventolin inhaler.. 12/28 21:39 Order name: Basic Metabolic Panel; Complete Time: 00:43 sp4 12/28 21:39 Order name: CBC with Diff; Complete Time: 00:43 sp4 12/28 21:39 Order name: LFT's; Complete Time: 00:43 sp4 12/28 21:39 Order name: Magnesium; Complete Time: 00:43 sp4 12/28 21:39 Order name: NT PRO-BNP; Complete Time: 00:43 sp4 12/28 21:39 Order name: PT-INR; Complete Time: 00:43 sp4 12/28 21:39 Order name: Troponin HS; Complete Time: 00:43 sp4 12/28 23:32 Order name: CT Chest Abdomen Pelvis W/O Contrast sp4 12/28 21:39 Order name: EKG; Complete Time: 21:40 sp4 12/28 21:39 Order name: Cardiac monitoring; Complete Time: 22:23 sp4 12/28 21:39 Order name: EKG - Nurse/Tech; Complete Time: 22:23 sp4 12/28 21:39 Order name: IV Saline Lock; Complete Time: 22:48 sp4 12/28 21:39 Order name: Labs collected and sent; Complete Time: 22:48 sp4 12/28 21:39 Order name: O2 Per Protocol; Complete Time: 22:48 sp4 12/28 21:39 Order name: O2 Sat Monitoring; Complete Time: 22:48 sp4 EC:56 Rate is 73 beats/min. Rhythm is regular, Normal Sinus Rhythm. QRS [place] is Normal. [place] sp4 interval is normal. QRS interval is normal. QT interval is normal. No Q waves. T waves are Normal. No ST changes noted. Clinical impression: No evidence of ischemia. Interpreted by me. Reviewed by me. Administered Medications: 12/28 22:03 Drug: Albuterol Inhalation 2.5 mg Inhalation every 20 minutes x3 Route: Inhalation; jj7 22:24 Drug: Albuterol Inhalation 2.5 mg Inhalation every 20 minutes x3 Route: Inhalation; jj7 22:40 Drug: predniSONE PO 60 mg PO once Route: PO; jj7 23:30 Follow up: Response: Marked relief of symptoms jj7 22:40 Drug: LORazepam PO 2 mg PO once Route: PO; jj7 23:30 Follow up: Response: Marked relief of symptoms jj7 22:48 Drug: morphine IVP or IV 4 mg IVP once over 4 mins Route: IVP; Infused Over: 4 mins; jj7 Site: left antecubital; 23:00 Follow up: Response: Marked relief of symptoms jj7 22:48 Drug: Famotidine IVP 20 mg IVP once; dilute with 10 mL 0.9% NaCl; give over 2 minutes jj7 Route: IVP; Site: left antecubital; 12/29 02:47 Follow up: Response: Marked relief of symptoms jj7 12/28 22:48 Drug: Ondansetron IVP 4 mg IVP once; over 2 minutes Route: IVP; Site: left antecubital; jj7 23:00 Follow up: Response: Marked relief of symptoms jj7 22:49 Drug: Albuterol Inhalation 2.5 mg Inhalation every 20 minutes x3 Route: Inhalation; jj7 23:00 Follow up: Response: Marked relief of symptoms jj7 Disposition Summary: 12/29/23 00:51 Discharge Ordered Notes: Discontinue tobacco use Location: Home sp4 Problem: new sp4 Symptoms: have improved sp4 Condition: Stable sp4 Diagnosis - COPD/ Chronic obstructive pulmonary disease with (acute) exacerbation sp4 - Abdominal pain, Generalized sp4 - Dyspnea, unspecified sp4 - Tobacco use disorder sp4 Followup: sp4 - With: Private Physician - When: 10 - 14 days - Reason: Recheck today's complaints Discharge Instructions: - Discharge Summary Sheet sp4 - Living With COPD sp4 Forms: - Patient Portal Instructions sp4 Prescriptions: - Ventolin HFA 90 mcg/actuation Inhalation HFA Aerosol Inhaler - inhale 2 puff INHALATION route every 4 hours Dispense 1 inhaler with spacer, sp4 Use PRN for dyspnea or wheezing; 1 unit; Refills: 0, Product Selection Permitted - Prednisone 20 mg Oral Tablet - take 2 tablets ORAL route once daily for 5 days; 10 tablet; Refills: 0, Product sp4 Selection Permitted Signatures: Dispatcher WilmerOmega Delaney RN RN jj7 Jose Crews MD MD sp4 Mary Valenzuela RN RN km8 Corrections: (The following items were deleted from the chart) 23:37 21:40 Chest Abdomen Pelvis W [id number] ordered. EDMS EDMS
[2023-12-29 03:41] VITALS: BP 131/79; TEMP 97.6; O2SAT 98
--- NOTE | 2023-12-29 15:19 | RAD REPORT ---
EXAM DESCRIPTION: CT Chest, Abdomen and Pelvis Without Intravenous Contrast CLINICAL HISTORY: The patient is 53 years old and is Male; ABDOMINAL DISTENTION TECHNIQUE: Axial computed tomography images of the chest, abdomen and pelvis without intravenous con trast. Sagittal and coronal reformatted images were created and reviewed. This CT exam was perfor med using one or more of the following dose reduction techniques: automated exposure control, adjus tment of the mA and/or kV according to patient size, and/or use of iterative reconstruction technique . COMPARISON: CT November 30, 2023 FINDINGS: ARTIFACTS: The exam is suboptimal secondary to motion artifact. CHEST: LUNGS: The lungs are clear of focal opacity, mass, or consolidation. PLEURAL SPACE: Unremarkable. No significant effusion. No pneumothorax. HEART: No cardiomegaly. No pericardial effusion. ABDOMEN: LIVER: The liver is enlarged and mildly fatty. GALLBLADDER AND BILE DUCTS: No calcified stones. No ductal dilation. PANCREAS: Unremarkable. No ductal dilation. SPLEEN: Unremarkable. ADRENALS: Unremarkable. No mass. KIDNEYS AND URETERS: Punctate left intrarenal calcification is present. There is no hydronephrosi s or hydroureter of either kidney. No obstructing renal or ureteral calculus is seen. STOMACH AND BOWEL: The stomach is decompressed. The small bowel is relatively normal in caliber. Stool is present throughout the colon. There is no mucosal thickening or evidence of obstruction. PELVIS: APPENDIX: The appendix is normal in caliber without surrounding inflammation. BLADDER: The bladder is well distended. No stones. REPRODUCTIVE: Calcifications are present within the prostate. CHEST, ABDOMEN and PELVIS: INTRAPERITONEAL SPACE: Unremarkable. No significant fluid collection. No free air. BONES/JOINTS: No acute fracture. SOFT TISSUES: The soft tissues are normal. VASCULATURE: Atherosclerosis of the vasculature is present. The vessels are normal in caliber. No aortic aneurysm. LYMPH NODES: Unremarkable. No enlarged lymph nodes. IMPRESSION: No acute findings on this noncontrasted CT of the chest, abdomen and pelvis to explain t he patient's symptoms. Electronically signed by: Maria Del Rosario Sosa MD 12/29/2023 12:30 AM CONTENT ASSISTANT Due to temporary technical issues with the PACS/Fluency reporting system, reports are being signed by the in house radiologists without review as a courtesy to insure prompt reporting. The interpreting radiologist is fully responsible for the content of the report.
== END ==
LOC: ER 20:54
DX: J44.1 Chronic obstructive pulmonary disease with (acute) exacerbation (principal); I10 Essential (primary) hypertension; F17.210 Nicotine dependence, cigarettes, uncomplicated; R10.9 Unspecified abdominal pain; F10.20 Alcohol dependence, uncomplicated; Z99.81 Dependence on supplemental oxygen; Z88.0 Allergy status to penicillin
CPT/HCPCS: 85025; 80048; 36415; 83735; 85610; 80076; 84484; 83880; 71250; 74176; 94640; J7512; J7613; J2405

== ENCOUNTER → 2023-12-29 | Emergency (ER) | payer OTHER ==
[~2023-12-29] MED LIST changes: +DICYCLOMINE HCL 10 MG CAP ONE; +DIPHENHYDRAMINE 25 MG TAB/CAP ONE; +FAMOTIDINE 20 MG TAB ONE; -FAMOTIDINE 20 MG/2 ML VIAL IV ONE; -LORAZEPAM 1 MG TABLET ONE; -MORPHINE 4 MG/ML SYR ONE; -ONDANSETRON 4 MG/2 ML VIAL ONE; +PANTOPRAZOLE 40MG TABLET PO ONE
--- OUTSIDE RECORDS SUMMARY | 2023-12-29 20:37 | XMS REPORT | Continuity of Care Document ---
Author Name Unknown Address [address] [facility] [address] [place] [address] [facility] thconnect Address [address] [facility] [address] [facility] 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 Role Phone LOPEZ, RADHAANH Primary Care Physician Unavailab TYLER Burns Attending Clinician Unavailab MELINDA Boothe Attending Clinician Unavailable Melinda Maciel DO Attending Clinician [phone] CHRISTY HOLLIDAY Attending Clinician Unavailable Christy Holliday MD Attending Clinician [phone] JAC NAVARRO Attending Clinician Unavailable Jac Navarro MD Attending Clinician [phone] DARIEN LOBO Attending Clinician Unavailable MARIA ELENA [facility] Attending Hernandezia tashi Unavailable DENISE SUNG Attending Clinician Unavailable KARLEY ADAMS Attending Clinician Unavailable MELINDA MACIEL Admitting Clinician Unavailable JAC NAVARRO Admitting Clinician Unavailable CHRISTY HOLLIDAY Admitting Clinician Unavailable Payers Payer Name Policy Type Policy Number Effective Date Expirati on Date Source HIM [facility] [id number] 2023 00:00:00 [employer] [id number] 2023 00:00:00 [employer] 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 9 [id number] 2023 00:00:00 Problems Condition Name Condition Details Condition Category Status Onset Date Resolution Date Last Treatment Date Treating Clinician Comments Source Acute exacerbati on of chronic obstructiv e pulmonary disease (COPD) Acute exacerbati on of chronic obstructiv e pulmonary disease (COPD) Disease Active 03-24 00:00: 00 [facility] Obesity (BMI 30-39.9) Obesity (BMI 30-39.9) Disease Active 03-24 00:00: 00 [facility] Allergies, Adverse Reactions, Alerts Allergy Name Allergy Type Status Severity Reaction(s) Onset Date Inactive Date Treating Clinician Comments Source Lisinopr il Propensi ty to adverse reaction s Active Anaphylaxis 03-24 00:00: 00 [facility] LISINOPR IL DRUG INGREDI Active Anaphylaxis 03-24 00:00: 00 [facility] Social History Social Habit Start Date Stop Date Quantity Comments Source History of tobacco use Smokes tobacco daily [facility] function 2023-12-22 00:00:00 2023-12-22 00:00:00 [facility] Alcohol intake 2023-12-22 00:00:00 2023-12-22 00:00:00 4.29 /d [facility] Exposure to SARS-CoV-2 (event) 2022-10-04 00:00:00 2022-10-14 10:25:00 Not sure [facility] Tobacco use and exposure 2018-03-24 00:00:00 2018-03-24 00:00:00 User of smokeless tobacco [facility] Tobacco Comment 2018-03-24 00:00:00 2018-03-24 00:00:00 trying to quit [facility] Sex Assigned At 1970 00:00:00 1970 00:00:00 [facility] Smoking Status Start Date Stop Date Source Smokes tobacco daily 2018-03-24 00:00:00 [facility] Medications Ordered Medication Name Filled Medication Name Start Date Stop Date Current Medication? Ordering Clinician Indication Dosage Frequency Signature (SIG) Comments Components Source KCL (KLOR-CON M20) tablet 40 mEq 12-23 05:00: 00 12-23 05:07 :00 No 40meq 40 mEq, Oral, ONCE, 1 dose, On Thu12/22/23 at 2300, [facility] NaCl 0.9% (NS) bolus infusion 1,000 mL 12-23 05:00: 00 12-23 05:09 :00 No 1000mL at 999 mL/hr, 1,000 mL, IV Infusion, ONCE, 1 dose, On Thu12/22/23 at 2300, [facility] ondansetron (ZOFRAN (PF)) injection 4 mg 12-23 04:30: 00 12-23 04:24 :00 No 4mg 4 mg, Slow IV Push, ONCE, 1 dose, On Thu12/22/23 at 2230, [facility] maalox:diph enhydrAMINE :lidocaine 2 % viscous 1:1:1 ([facility]) oral suspension 15 mL 12-23 04:15: 00 12-23 04:17 :00 No 15mL 15 mL, Oral, ONCE, 1 dose, On Thu12/22/23 at 2215, Routine [facility] famotidine (PEPCID (PF)) injection 20 mg 12-23 04:15: 00 12-23 04:15 :00 No 20mg 20 mg, Slow IV Push, ONCE, 1 dose, On Thu12/22/23 at 2215, [facility] HYDROcodone -acetaminop hen (NORCO) 10-325 mg tablet 1 tablet 12-22 04:30: 00 12-22 16:29 :00 Yes 1{tbl} 1 tablet, Oral, ONCE, 1 dose, On Thu12/21/23 at 2230, Routine [facility] pantoprazol e (PROTONIX) 80 mg in NaCl 0.9% (NS) 20 mL syringe 12-22 04:15: 00 12-22 16:14 :00 Yes 80mg 80 mg, IV Push, ONCE, 1 dose, On Thu12/21/23 at 2215, Administer over 2 Minutes, 20 mL [facility] iopamidol (ISOVUE 370-500 mL) injection 100 mL 12-22 03:30: 00 12-22 03:30 :00 No [id number] 100mL 100 mL, Intravenou s, ONCE, 1 dose, On Thu12/21/23 at 2130, Routine [facility] morpHINE (4 mg/mL) injection 4 mg 12-22 03:30: 00 12-22 02:16 :00 No 4mg 4 mg, Slow IV Push, ONCE, 1 dose, On Thu12/21/23 at 2130, Routine [facility] ondansetron (ZOFRAN (PF)) injection 4 mg 12-22 02:45: 00 12-22 02:02 :00 No 4mg 4 mg, Slow IV Push, ONCE, 1 dose, On Thu12/21/23 at 2045, Routine [facility] ondansetron 4 mg disintegrat ing tablet 12-22 00:00: 00 Yes [id number] 4mg Take 1 tablet by mouth every 8 (eight) hours as needed for Nausea and Vomiting (N/V). [facility] hydrocortis one 25 mg suppository 12-22 00:00: 00 Yes [id number] 25mg Insert 1 Suppositor y into rectum 2 (two) times daily as needed for Rectal itching/pa in. [facility] amoxicillin -clavulanat e 875-125 mg per tablet 12-22 00:00: 00 01-02 05:59 :00 Yes [id number] 1{tbl} Take 1 tablet by mouth every 12 (twelve) hours for 10 days. [facility] methylpredn isolone sod succ (SOLU-MEDRO L) injection 125 mg 2022-11 08:45: 00 10-27 20:44 :00 Yes 125mg 125 mg, Slow IV Push, ONCE, 1 dose, On Thu10/27/23 at 0245, STAT [facility] ipratropium -albuteroL (DUONEB) 0.5 mg-3 mg(2.5 mg base)/3 mL nebulizer solution 3 mL 2022-11 08:45: 00 10-27 20:44 :00 Yes 3mL 3 mL, Inhalation , ONCE NOW, 1 dose, On Thu10/27/23 at 0245, LAURYN [facility] diazePAM (VALIUM) tablet 10 mg 2022-11 07:45: 00 10-27 19:44 :00 Yes 10mg 10 mg, Oral, ONCE, 1 dose, On Thu10/27/23 at 0145, LAURYN [facility] levoFLOXaci n (LEVAQUIN) tablet 500 mg 2022-11 07:45: 00 10-27 19:44 :00 Yes 500mg 500 mg, Oral, ONCE, 1 dose, On Thu10/27/23 at 0145, LAURYN
Re ason for Anti-Infec tive: Empiric Non-Surgic al Prophylaxi s
Durat ion of therapy: Once (ED) [facility] iopamidol (ISOVUE 370-500 mL) injection 70 mL 2021-11 18:30: 00 10-14 18:30 :00 No [id number] 70mL 70 mL, Intravenou s, ONCE, 1 dose, On Thu10/14/22 at 1230, Routine [facility] methylpredn isolone sod succ (SOLU-MEDRO L) injection 125 mg 2021-11 18:00: 00 Yes 125mg 125 mg, Intravenou s, Q6H, First dose on Thu10/14/22 at 1200, Until Discontinu ed, Routine [facility] furosemide (LASIX) injection 40 mg 2021-11 17:45: 00 10-14 16:39 :00 No 40mg 40 mg, IV Push, ONCE, 1 dose, On Thu10/14/22 at 1145, LAURYN [facility] ipratropium -albuteroL (DUONEB) 0.5 mg-3 mg(2.5 mg base)/3 mL nebulizer solution 3 mL 2021-11 17:30: 00 10-14 16:41 :00 No 3mL 3 mL, Inhalation , ONCE, 1 dose, On Thu10/14/22 at 1130, Routine [facility] FENTanyl PF (SUBLIMAZE (PF)) injection 50 mcg 2021-11 16:45: 00 10-14 16:39 :00 No 50ug 50 mcg, Slow IV Push, ONCE, 1 dose, On Thu10/14/22 at 1045, Routine [facility] levoFLOXaci n 750 mg tablet 2021-11 00:00: 00 Yes [id number] 750mg Take 1 tablet by mouth every 24 (twenty-fo ur) hours. [facility] levoFLOXaci n 750 mg tablet 2021-11 00:00: 00 Yes [id number] 750mg Take 1 tablet by mouth every 24 (twenty-fo ur) hours. [facility] levoFLOXaci n 750 mg tablet 2021-11 00:00: 00 Yes [id number] 750mg Take 1 tablet by mouth every 24 (twenty-fo ur) hours. [facility] levoFLOXaci n 750 mg tablet 2021-11 00:00: 00 Yes [id number] 750mg Take 1 tablet by mouth every 24 (twenty-fo ur) hours. [facility] levoFLOXaci n 750 mg tablet 2021-11 00:00: 00 Yes [id number] 750mg Take 1 tablet by mouth every 24 (twenty-fo ur) hours. [facility] HYDROcodone -acetaminop hen (NORCO) 10-325 mg tablet 1 tablet 03-12 12:15: 00 03-12 11:21 :00 No 1{tbl} 1 tablet, Oral, ONCE, 1 dose, On Thu03/12/22 at 0715, Routine [facility] HYDROcodone -acetaminop hen 10-325 mg tablet 03-12 00:00: 00 03-20 04:59 :00 No [id number] 1{tbl} Take 1 tablet by mouth every 6 (six) hours as needed for Pain (scale 7-10) for up to 7 days. Indication s: acute pain [facility] ipratropium -albuteroL (DUONEB) 0.5 mg-3 mg(2.5 mg base)/3 mL nebulizer solution 3 mL 02-20 13:00: 00 Yes 3mL 3 mL, Inhalation , QID, First dose on Thu02/20/22 at 0800, Until Discontinu ed, Routine [facility] methylPREDN ISolone sod succ (SOLU-MEDRO L (PF)) injection 40 mg 02-20 11:45: 00 02-20 10:43 :00 No 40mg 40 mg, Intravenou s, ONCE, 1 dose, On Thu02/20/22 at 0645, STAT [facility] foLIC acid (FOLATE) tablet 1 mg 02-20 11:45: 00 02-20 10:41 :00 No 1mg 1 mg, Oral, ONCE, 1 dose, On Thu02/20/22 at 0645, LAURYN [facility] thiamine (VITAMIN B1) injection 100 mg 02-20 11:45: 00 02-20 10:43 :00 No 100mg 100 mg, Intravenou s, ONCE, 1 dose, On Thu02/20/22 at 0645, LAURYN [facility] LORazepam (ATIVAN) injection 2 mg 02-20 11:45: 00 02-20 10:42 :00 No 2mg 2 mg, Slow IV Push, ONCE, 1 dose, On Thu02/20/22 at 0645, STAT [facility] ipratropium -albuteroL (DUONEB) 0.5 mg-3 mg(2.5 mg base)/3 mL nebulizer solution 3 mL 02-20 10:30: 00 02-20 09:34 :00 No 3mL 3 mL, Inhalation , ONCE, 1 dose, On Kym 4/14/22 at 0530, Routine [facility] albuterol 90 mcg/actuati on inhaler 02-20 00:00: 00 Yes [id number] 2{puff} Inhale 2 Puffs every 4 (four) hours as needed for Wheezing or Shortness of Breath. [facility] albuterol 2.5 mg /3 mL (0.083 %) nebulizer solution 02-20 00:00: 00 Yes [id number] 2.5mg Inhale 3 mL every 4 (four) hours. May also nebulize one extra every 6 hours. [facility] budesonide- formoteroL 160-4.5 mcg/actuati on inhaler 02-20 00:00: 00 Yes [id number] 2{puff} Inhale 2 Puffs 2 (two) times daily. [facility] triamterene -hydrochlor othiazid 37.5-25 mg tablet 02-20 00:00: 00 Yes [id number] 1{tbl} Take 1 tablet by mouth daily. [facility] chlordiazeP OXIDE 25 mg capsule 02-20 00:00: 00 Yes [id number] 25mg Take 1 capsule by mouth every 6 (six) hours as needed for Anxiety, Agitation, Heart Rate => 100 or Detox. [facility] predniSONE 10 mg tablet 02-20 00:00: 00 Yes [id number] TAKE ONE TABLET BY MOUTH DAILY [facility] albuterol 90 mcg/actuati on inhaler 02-20 00:00: 00 Yes [id number] 2{puff} Inhale 2 Puffs every 4 (four) hours as needed for Wheezing or Shortness of Breath. [facility] albuterol 2.5 mg /3 mL (0.083 %) nebulizer solution 02-20 00:00: 00 Yes [id number] 2.5mg Inhale 3 mL every 4 (four) hours. May also nebulize one extra every 6 hours. [facility] budesonide- formoteroL 160-4.5 mcg/actuati on inhaler 02-20 00:00: 00 Yes [id number] 2{puff} Inhale 2 Puffs 2 (two) times daily. [facility] triamterene -hydrochlor othiazid 37.5-25 mg tablet 02-20 00:00: 00 Yes [id number] 1{tbl} Take 1 tablet by mouth daily. [facility] chlordiazeP OXIDE 25 mg capsule 02-20 00:00: 00 Yes [id number] 25mg Take 1 capsule by mouth every 6 (six) hours as needed for Anxiety, Agitation, Heart Rate => 100 or Detox. [facility] predniSONE 10 mg tablet 02-20 00:00: 00 Yes [id number] TAKE ONE TABLET BY MOUTH DAILY [facility] albuterol 90 mcg/actuati on inhaler 02-20 00:00: 00 Yes [id number] 2{puff} Inhale 2 Puffs every 4 (four) hours as needed for Wheezing or Shortness of Breath. [facility] albuterol 2.5 mg /3 mL (0.083 %) nebulizer solution 02-20 00:00: 00 Yes [id number] 2.5mg Inhale 3 mL every 4 (four) hours. May also nebulize one extra every 6 hours. [facility] budesonide- formoteroL 160-4.5 mcg/actuati on inhaler 02-20 00:00: 00 Yes [id number] 2{puff} Inhale 2 Puffs 2 (two) times daily. [facility] triamterene -hydrochlor othiazid 37.5-25 mg tablet 02-20 00:00: 00 Yes [id number] 1{tbl} Take 1 tablet by mouth daily. [facility] chlordiazeP OXIDE 25 mg capsule 02-20 00:00: 00 Yes [id number] 25mg Take 1 capsule by mouth every 6 (six) hours as needed for Anxiety, Agitation, Heart Rate => 100 or Detox. [facility] predniSONE 10 mg tablet 02-20 00:00: 00 Yes [id number] TAKE ONE TABLET BY MOUTH DAILY [facility] albuterol 90 mcg/actuati on inhaler 02-20 00:00: 00 Yes [id number] 2{puff} Inhale 2 Puffs every 4 (four) hours as needed for Wheezing or Shortness of Breath. [facility] albuterol 2.5 mg /3 mL (0.083 %) nebulizer solution 02-20 00:00: 00 Yes [id number] 2.5mg Inhale 3 mL every 4 (four) hours. May also nebulize one extra every 6 hours. [facility] budesonide- formoteroL 160-4.5 mcg/actuati on inhaler 02-20 00:00: 00 Yes [id number] 2{puff} Inhale 2 Puffs 2 (two) times daily. [facility] triamterene -hydrochlor othiazid 37.5-25 mg tablet 02-20 00:00: 00 Yes [id number] 1{tbl} Take 1 tablet by mouth daily. [facility] chlordiazeP OXIDE 25 mg capsule 02-20 00:00: 00 Yes [id number] 25mg Take 1 capsule by mouth every 6 (six) hours as needed for Anxiety, Agitation, Heart Rate => 100 or Detox. [facility] predniSONE 10 mg tablet 02-20 00:00: 00 Yes [id number] TAKE ONE TABLET BY MOUTH DAILY [facility] albuterol 90 mcg/actuati on inhaler 02-20 00:00: 00 Yes [id number] 2{puff} Inhale 2 Puffs every 4 (four) hours as needed for Wheezing or Shortness of Breath. [facility] albuterol 2.5 mg /3 mL (0.083 %) nebulizer solution 02-20 00:00: 00 Yes [id number] 2.5mg Inhale 3 mL every 4 (four) hours. May also nebulize one extra every 6 hours. [facility] budesonide- formoteroL 160-4.5 mcg/actuati on inhaler 02-20 00:00: 00 Yes [id number] 2{puff} Inhale 2 Puffs 2 (two) times daily. [facility] triamterene -hydrochlor othiazid 37.5-25 mg tablet 02-20 00:00: 00 Yes [id number] 1{tbl} Take 1 tablet by mouth daily. [facility] chlordiazeP OXIDE 25 mg capsule 02-20 00:00: 00 Yes [id number] 25mg Take 1 capsule by mouth every 6 (six) hours as needed for Anxiety, Agitation, Heart Rate => 100 or Detox. [facility] predniSONE 10 mg tablet 02-20 00:00: 00 Yes [id number] TAKE ONE TABLET BY MOUTH DAILY [facility] albuterol 90 mcg/actuati on inhaler 02-20 00:00: 00 Yes [id number] 2{puff} Inhale 2 Puffs every 4 (four) hours as needed for Wheezing or Shortness of Breath. [facility] albuterol 2.5 mg /3 mL (0.083 %) nebulizer solution 02-20 00:00: 00 Yes [id number] 2.5mg Inhale 3 mL every 4 (four) hours. May also nebulize one extra every 6 hours. [facility] budesonide- formoteroL 160-4.5 mcg/actuati on inhaler 02-20 00:00: 00 Yes [id number] 2{puff} Inhale 2 Puffs 2 (two) times daily. [facility] triamterene -hydrochlor othiazid 37.5-25 mg tablet 02-20 00:00: 00 Yes [id number] 1{tbl} Take 1 tablet by mouth daily. [facility] chlordiazeP OXIDE 25 mg capsule 02-20 00:00: 00 Yes [id number] 25mg Take 1 capsule by mouth every 6 (six) hours as needed for Anxiety, Agitation, Heart Rate => 100 or Detox. [facility] predniSONE 10 mg tablet 02-20 00:00: 00 Yes [id number] TAKE ONE TABLET BY MOUTH DAILY [facility] albuterol 90 mcg/actuati on inhaler 02-20 00:00: 00 Yes [id number] 2{puff} Inhale 2 Puffs every 4 (four) hours as needed for Wheezing or Shortness of Breath. [facility] albuterol 2.5 mg /3 mL (0.083 %) nebulizer solution 02-20 00:00: 00 Yes [id number] 2.5mg Inhale 3 mL every 4 (four) hours. May also nebulize one extra every 6 hours. [facility] budesonide- formoteroL 160-4.5 mcg/actuati on inhaler 02-20 00:00: 00 Yes [id number] 2{puff} Inhale 2 Puffs 2 (two) times daily. [facility] triamterene -hydrochlor othiazid 37.5-25 mg tablet 02-20 00:00: 00 Yes [id number] 1{tbl} Take 1 tablet by mouth daily. [facility] chlordiazeP OXIDE 25 mg capsule 02-20 00:00: 00 Yes [id number] 25mg Take 1 capsule by mouth every 6 (six) hours as needed for Anxiety, Agitation, Heart Rate => 100 or Detox. [facility] predniSONE 10 mg tablet 02-20 00:00: 00 Yes [id number] TAKE ONE TABLET BY MOUTH DAILY [facility] albuterol 5 mg/mL nebulizer solution 07-16 14:02: 20 Yes 2.5mg Inhale 2.5 mg every 6 (six) hours as needed for Wheezing or Shortness of Breath. [facility] albuterol 5 mg/mL nebulizer solution 07-16 14:02: 20 Yes 2.5mg Inhale 2.5 mg every 6 (six) hours as needed for Wheezing or Shortness of Breath. [facility] albuterol 5 mg/mL nebulizer solution 07-16 14:02: 20 Yes 2.5mg Inhale 2.5 mg every 6 (six) hours as needed for Wheezing or Shortness of Breath. [facility] al[facility]/mL nebulizer solution 07-16 14:02: 20 Yes 2.5mg Inhale 2.5 mg every 6 (six) hours as needed for Wheezing or Shortness of Breath. [facility] albuterol 5 mg/mL nebulizer solution 07-16 14:02: 20 Yes 2.5mg Inhale 2.5 mg every 6 (six) hours as needed for Wheezing or Shortness of Breath. [facility] albuterol 5 mg/mL nebulizer solution 07-16 14:02: 20 Yes 2.5mg Inhale 2.5 mg every 6 (six) hours as needed for Wheezing or Shortness of Breath. [facility] albuterol 5 mg/mL nebulizer solution 07-16 14:02: 20 Yes 2.5mg Inhale 2.5 mg every 6 (six) hours as needed for Wheezing or Shortness of Breath. [facility] budesonide- formoterol 160-4.5 mcg/actuati on inhaler 07-16 00:00: 00 Yes 2{puff} Inhale 2 Puffs 2 (two) times daily. [facility] albuterol 2.5 mg /3 mL (0.083 %) nebulizer solution 07-16 00:00: 00 Yes 2.5mg Inhale 3 mL every 4 (four) hours as needed for Wheezing or Shortness of Breath. [facility] budesonide- formoterol 160-4.5 mcg/actuati on inhaler 07-16 00:00: 00 Yes 2{puff} Inhale 2 Puffs 2 (two) times daily. [facility] albuterol 2.5 mg /3 mL (0.083 %) nebulizer solution 07-16 00:00: 00 Yes 2.5mg Inhale 3 mL every 4 (four) hours as needed for Wheezing or Shortness of Breath. [facility] budesonide- formoterol 160-4.5 mcg/actuati on inhaler 07-16 00:00: 00 Yes 2{puff} Inhale 2 Puffs 2 (two) times daily. [facility] albuterol 2.5 mg /3 mL (0.083 %) nebulizer solution 07-16 00:00: 00 Yes 2.5mg Inhale 3 mL every 4 (four) hours as needed for Wheezing or Shortness of Breath. [facility] budesonide- formoterol 160-4.5 mcg/actuati on inhaler 07-16 00:00: 00 Yes 2{puff} Inhale 2 Puffs 2 (two) times daily. [facility] albuterol 2.5 mg /3 mL (0.083 %) nebulizer solution 07-16 00:00: 00 Yes 2.5mg Inhale 3 mL every 4 (four) hours as needed for Wheezing or Shortness of Breath. [facility] budesonide- formoterol 160-4.5 mcg/actuati on inhaler 07-16 00:00: 00 Yes 2{puff} Inhale 2 Puffs 2 (two) times daily. [facility] albuterol 2.5 mg /3 mL (0.083 %) nebulizer solution 07-16 00:00: 00 Yes 2.5mg Inhale 3 mL every 4 (four) hours as needed for Wheezing or Shortness of Breath. [facility] budesonide- formoterol 160-4.5 mcg/actuati on inhaler 07-16 00:00: 00 Yes 2{puff} Inhale 2 Puffs 2 (two) times daily. [facility] albuterol 2.5 mg /3 mL (0.083 %) nebulizer solution 07-16 00:00: 00 Yes 2.5mg Inhale 3 mL every 4 (four) hours as needed for Wheezing or Shortness of Breath. [facility] budesonide- formoterol 160-4.5 mcg/actuati on inhaler 07-16 00:00: 00 Yes 2{puff} Inhale 2 Puffs 2 (two) times daily. [facility] albuterol 2.5 mg /3 mL (0.083 %) nebulizer solution 07 00:00: 00 Yes 2.5mg Inhale 3 mL every 4 (four) hours as needed for Wheezing or Shortness of Breath. [facility] triamterene -hydrochlor othiazide 37.5-25 mg per capsule 03-26 16:32: 14 Yes 1{capsu le} Take 1 capsule by mouth every morning. [facility] amLODIPine 10 mg tablet 03-26 16:32: 14 Yes 10mg Take 10 mg by mouth at bedtime. [facility] gabapentin 100 mg capsule 03-26 16:32: 14 Yes 100mg Take 100 mg by mouth 2 (two) times daily as needed ([facility] pain). [facility] foLIC acid 1 mg tablet 03-26 16:32: 14 Yes 1mg Take 1 mg by mouth daily. [facility] triamterene -hydrochlor othiazide 37.5-25 mg per capsule 03-26 16:32: 14 Yes 1{capsu le} Take 1 capsule by mouth every morning. [facility] amLODIPine 10 mg tablet 03-26 16:32: 14 Yes 10mg Take 10 mg by mouth at bedtime. [facility] gabapentin 100 mg capsule 03-26 16:32: 14 Yes 100mg Take 100 mg by mouth 2 (two) times daily as needed ([facility] pain). [facility] foLIC acid 1 mg tablet 03-26 16:32: 14 Yes 1mg Take 1 mg by mouth daily. [facility] triamterene -hydrochlor othiazide 37.5-25 mg per capsule 03-26 16:32: 14 Yes 1{capsu le} Take 1 capsule by mouth every morning. [facility] amLODIPine 10 mg tablet 03-26 16:32: 14 Yes 10mg Take 10 mg by mouth at bedtime. [facility] gabapentin 100 mg capsule 03-26 16:32: 14 Yes 100mg Take 100 mg by mouth 2 (two) times daily as needed ([facility] pain). [facility] foLIC acid 1 mg tablet 03-26 16:32: 14 Yes 1mg Take 1 mg by mouth daily. [facility] triamterene -hydrochlor othiazide 37.5-25 mg per capsule 03-26 16:32: 14 Yes 1{capsu le} Take 1 capsule by mouth every morning. [facility] amLODIPine 10 mg tablet 03-26 16:32: 14 Yes 10mg Take 10 mg by mouth at bedtime. [facility] gabapentin 100 mg capsule 03-26 16:32: 14 Yes 100mg Take 100 mg by mouth 2 (two) times daily as needed ([facility] pain). [facility] foLIC acid 1 mg tablet 03-26 16:32: 14 Yes 1mg Take 1 mg by mouth daily. [facility] triamterene -hydrochlor othiazide 37.5-25 mg per capsule 03-26 16:32: 14 Yes 1{capsu le} Take 1 capsule by mouth every morning. [facility] triamterene -hydrochlor othiazide 37.5-25 mg per capsule 03-26 16:32: 14 Yes 1{capsu le} Take 1 capsule by mouth every morning. [facility] amLODIPine 10 mg tablet 03-26 16:32: 14 Yes 10mg Take 10 mg by mouth at bedtime. [facility] amLODIPine 10 mg tablet 03-26 16:32: 14 Yes 10mg Take 10 mg by mouth at bedtime. [facility] gabapentin 100 mg capsule 03-26 16:32: 14 Yes 100mg Take 100 mg by mouth 2 (two) times daily as needed ([facility] pain). [facility] foLIC acid 1 mg tablet 03-26 16:32: 14 Yes 1mg Take 1 mg by mouth daily. [facility] gabapentin 100 mg capsule 03-26 16:32: 14 Yes 100mg Take 100 mg by mouth 2 (two) times daily as needed ([facility] pain). [facility] foLIC acid 1 mg tablet 03-26 16:32: 14 Yes 1mg Take 1 mg by mouth daily. [facility] triamterene -hydrochlor othiazide 37.5-25 mg per capsule 03-26 16:32: 14 Yes 1{capsu le} Take 1 capsule by mouth every morning. [facility] amLODIPine 10 mg tablet 03-26 16:32: 14 Yes 10mg Take 10 mg by mouth at bedtime. [facility] gabapentin 100 mg capsule 03-26 16:32: 14 Yes 100mg Take 100 mg by mouth 2 (two) times daily as needed ([facility] pain). [facility] foLIC acid 1 mg tablet 03-26 16:32: 14 Yes 1mg Take 1 mg by mouth daily. [facility] budesonide- formoterol 160-4.5 mcg/actuati on inhaler 03-26 00:00: 00 Yes 2{puff} Inhale 2 Puffs 2 (two) times daily. [facility] budesonide- formoterol 160-4.5 mcg/actuati on inhaler 03-26 00:00: 00 Yes 2{puff} Inhale 2 Puffs 2 (two) times daily. [facility] budesonide- formoterol 160-4.5 mcg/actuati on inhaler 03-26 00:00: 00 Yes 2{puff} Inhale 2 Puffs 2 (two) times daily. [facility] budesonide- formoterol 160-4.5 mcg/actuati on inhaler 03-26 00:00: 00 Yes 2{puff} Inhale 2 Puffs 2 (two) times daily. [facility] budesonide- formoterol 160-4.5 mcg/actuati on inhaler 03-26 00:00: 00 Yes 2{puff} Inhale 2 Puffs 2 (two) times daily. [facility] budesonide- formoterol 160-4.5 mcg/actuati on inhaler 03-26 00:00: 00 Yes 2{puff} Inhale 2 Puffs 2 (two) times daily. [facility] budesonide- formoterol 160-4.5 mcg/actuati on inhaler 03-26 00:00: 00 Yes 2{puff} Inhale 2 Puffs 2 (two) times daily. [facility] Immunizations Ordered Immunization Name Filled Immunization Name Date Status Comments Source SARS-COV-2 COVID-19 PFIZER VACCINE 2021-02-03 00:00:00 Completed [facility] SARS-COV-2 COVID-19 PFIZER VACCINE 2021-02-03 00:00:00 Completed [facility] SARS-COV-2 COVID-19 PFIZER VACCINE 2021-02-03 00:00:00 Completed [facility] SARS-COV-2 COVID-19 PFIZER VACCINE 2021-01-13 00:00:00 Completed [facility] SARS-COV-2 COVID-19 PFIZER VACCINE 2021-01-13 00:00:00 Completed [facility] SARS-COV-2 COVID-19 PFIZER VACCINE 2021-01-13 00:00:00 Completed [facility] Pneumococcal Polysaccharide, PPSV23 (PNEUMOVAX) 2018-03-26 00:00:00 Completed [facility] Influenza Virus Vaccine Quad IM 3+ YRS 2018-03-26 00:00:00 Completed [facility] Pneumococcal Polysaccharide, PPSV23 (PNEUMOVAX) 2018-03-26 00:00:00 Completed [facility] Influenza Virus Vaccine Quad IM 3+ YRS 2018-03-26 00:00:00 Completed [facility] Pneumococcal Polysaccharide, PPSV23 (PNEUMOVAX) 2018-03-26 00:00:00 Completed [facility] Influenza Virus Vaccine Quad IM 3+ YRS 2018-03-26 00:00:00 Completed [facility] Pneumococcal Polysaccharide, PPSV23 (PNEUMOVAX) Unknown Completed [facility] Influenza Virus Vaccine Quad IM 3+ YRS Unknown Completed [facility] SARS-COV-2 COVID-19 PFIZER VACCINE Unknown Completed [facility] SARS-COV-2 COVID-19 PFIZER VACCINE Unknown Completed [facility] Pneumococcal Polysaccharide, PPSV23 (PNEUMOVAX) Unknown Completed [facility] Influenza Virus Vaccine Quad IM 3+ YRS Unknown Completed [facility] SARS-COV-2 COVID-19 PFIZER VACCINE Unknown Completed [facility] SARS-COV-2 COVID-19 PFIZER VACCINE Unknown Completed [facility] Pneumococcal Polysaccharide, PPSV23 (PNEUMOVAX) Unknown Completed [facility] Influenza Virus Vaccine Quad IM 3+ YRS Unknown Completed [facility] SARS-COV-2 COVID-19 PFIZER VACCINE Unknown Completed [facility] SARS-COV-2 COVID-19 PFIZER VACCINE Unknown Completed [facility] Pneumococcal Polysaccharide, PPSV23 (PNEUMOVAX) Unknown Completed [facility] Influenza Virus Vaccine Quad IM 3+ YRS Unknown Completed [facility] SARS-COV-2 COVID-19 PFIZER VACCINE Unknown Completed [facility] SARS-COV-2 COVID-19 PFIZER VACCINE Unknown Completed [facility] Vital Signs Vital Name Observation Time Observation Value Comments S ource Systolic blood pressure 2023-12-23 05:02:00 133 mm[Hg] [facility] Diastolic blood pressure 2023-12-23 05:02:00 84 mm[Hg] [facility] Heart rate 2023-12-23 05:02:00 78 /min [facility] Body temperature 2023-12-23 05:02:00 36.17 Debbie [facility] Respiratory rate 2023-12-23 05:02:00 17 /min [facility] Oxygen saturation in Arterial blood by Pulse oximetry 2023-12-23 05:02:00 91 /min [facility] Body height 2023-12-23 03:45:00 162.6 cm [facility] Body weight 2023-12-23 03:45:00 81.194 kg [facility] BMI 2023-12-23 03:45:00 30.73 kg/m2 [facility] Systolic blood pressure 2023-12-22 02:08:00 143 mm[Hg] [facility] Diastolic blood pressure 2023-12-22 02:08:00 92 mm[Hg] [facility] Heart rate 2023-12-22 02:08:00 81 /min [facility] Respiratory rate 2023-12-22 02:08:00 13 /min [facility] Oxygen saturation in Arterial blood by Pulse oximetry 2023-12-22 02:08:00 95 /min [facility] Body temperature 2023-12-22 01:33:00 36.72 Debbie [facility] Body height 2023-12-22 01:33:00 162.6 cm [facility] Body weight 2023-12-22 01:33:00 81.239 kg [facility] BMI 2023-12-22 01:33:00 30.74 kg/m2 [facility] Systolic blood pressure 2023-11-11 02:00:00 127 mm[Hg] [facility] Diastolic blood pressure 2023-11-11 02:00:00 87 mm[Hg] [facility] Heart rate 2023-11-11 02:00:00 79 /min [facility] Respiratory rate 2023-11-11 02:00:00 20 /min [facility] Oxygen saturation in Arterial blood by Pulse oximetry 2023-11-11 02:00:00 98 /min [facility] Body temperature 2023-11-11 01:31:00 36.28 Debbie [facility] Body height 2023-11-11 01:31:00 162.6 cm [facility] Body weight 2023-11-11 01:31:00 79.379 kg [facility] BMI 2023-11-11 01:31:00 30.04 kg/m2 [facility] Systolic blood pressure 2023-10-27 06:54:00 133 mm[Hg] [facility] Diastolic blood pressure 2023-10-27 06:54:00 94 mm[Hg] [facility] Heart rate 2023-10-27 06:54:00 95 /min [facility] Body temperature 2023-10-27 06:54:00 36.44 Debbie [facility] Respiratory rate 2023-10-27 06:54:00 22 /min [facility] Body height 2023-10-27 06:54:00 162.6 cm [facility] Body weight 2023-10-27 06:54:00 78.472 kg [facility] BMI 2023-10-27 06:54:00 29.70 kg/m2 [facility] Oxygen saturation in Arterial blood by Pulse oximetry 2023-10-27 06:54:00 94 /min [facility] Systolic blood pressure 2022-10-14 19:43:00 111 mm[Hg] [facility] Diastolic blood pressure 2022-10-14 19:43:00 74 mm[Hg] [facility] Heart rate 2022-10-14 19:43:00 98 /min [facility] Body temperature 2022-10-14 19:43:00 36.39 Debbie [facility] Respiratory rate 2022-10-14 19:43:00 22 /min [facility] Oxygen saturation in Arterial blood by Pulse oximetry 2022-10-14 19:43:00 94 /min [facility] Body height 2022-10-14 16:13:00 162.6 cm [facility] Body weight 2022-10-14 16:13:00 81.647 kg [facility] BMI 2022-10-14 16:13:00 30.90 kg/m2 [facility] Systolic blood pressure 2022-03-12 10:13:00 119 mm[Hg] [facility] Diastolic blood pressure 2022-03-12 10:13:00 75 mm[Hg] [facility] Heart rate 2022-03-12 10:13:00 105 /min [facility] Body temperature 2022-03-12 10:13:00 37.28 Debbie [facility] Respiratory rate 2022-03-12 10:13:00 19 /min [facility] Body height 2022-03-12 10:13:00 162.6 cm [facility] Body weight 2022-03-12 10:13:00 99.791 kg [facility] BMI 2022-03-12 10:13:00 37.76 kg/m2 [facility] Oxygen saturation in Arterial blood by Pulse oximetry 2022-03-12 10:13:00 96 /min [facility] Systolic blood pressure 2022-02-20 11:57:00 155 mm[Hg] [facility] Diastolic blood pressure 2022-02-20 11:57:00 88 mm[Hg] [facility] Heart rate 2022-02-20 11:57:00 105 /min [facility] Respiratory rate 2022-02-20 11:57:00 18 /min [facility] Oxygen saturation in Arterial blood by Pulse oximetry 2022-02-20 11:57:00 100 /min [facility] Body temperature 2022-02-20 09:25:00 37 Debbie [facility] Body height 2022-02-20 09:25:00 162.6 cm [facility] Body weight 2022-02-20 09:25:00 96.163 kg [facility] BMI 2022-02-20 09:25:00 36.39 kg/m2 [facility] Procedures Procedure Date / Time Performed Performing Clinician Source LIPASE 2023-12-23 04:17:00 Tyler Rowe [facility] COMP. METABOLIC PANEL (47390) 2023-12-23 04:17:00 Tyler Rowe [facility] CBC WITH DIFF 2023-12-23 04:17:00 [facility] 2023-12-23 04:17:00 Tyler Rowe Un [facility] CONSENT/REFUSAL FOR DIAGNOSIS AND TREATMENT 2023-12-23 03:40:32 Doctor Unassigned, [place] [facility] CT ABDOMEN PELVIS W CONTRAST 2023-12-22 02:31:05 Melinda Maciel [facility] LIPASE 2023-12-22 01:58:00 Melinda Maciel [facility] COMP. METABOLIC PANEL (21049) 2023-12-22 01:58:00 Melinda Maciel [facility] ETHANOL 2023-12-22 01:58:00 Melinda Maciel [facility] CBC WITH DIFF 2023-12-22 01:58:00 Melinda Maciel [facility] PROTHROMBIN TIME / INR 2023-12-22 01:58:00 Wali Maciel [facility] URINALYSIS 2023-12-22 01:58:00 [facility] CONSENT/REFUSAL FOR DIAGNOSIS AND TREATMENT 2023-12-22 01:19:14 Doctor Unassigned, [place] [facility] NOTICE OF PRIVACY PRACTICES 2023-11-11 01:24:24 Doctor Unassigned, [facility] [facility] CONSENT/REFUSAL FOR DIAGNOSIS AND TREATMENT 2023-11-11 01:23:54 Doctor Unassigned, [facility] [facility] COVID-19 (ID NOW RAPID TESTING) 2023-10-27 07:09:00 Jac Navarro [facility] NOTICE OF PRIVACY PRACTICES 2023-10-27 06:49:48 Doctor Unassigned, [facility] [facility] CONSENT/REFUSAL FOR DIAGNOSIS AND TREATMENT 2023-10-27 06:47:40 Doctor Unassigned, [place] [facility] CT ABDOMEN PELVIS W CONTRAST 2022-10-14 17:33:00 Melinda Maciel [facility] XR CHEST 1 VW 2022-10-14 17:10:37 Singer [facility] TROPONIN I 2022-10-14 16:37:00 [facility] COMP. METABOLIC PANEL (42786) 2022-10-14 16:37:00 Melinda Maciel [facility] CBC WITH DIFF 2022-10-14 16:37:00 Melinda Maciel [facility] PROTHROMBIN TIME / INR 2022-10-14 16:37[facility]22-10-14 16:37:00 [facility] N-TERMINAL PRO-BNP 2022-10-14 16:37:00 Singer [facility] CONSENT/REFUSAL FOR DIAGNOSIS AND TREATMENT 2022-10-14 15:56:36 Doctor Unassigned, [place] [facility] CONSENT/REFUSAL FOR DIAGNOSIS AND TREATMENT 2022-03-12 10:03:12 Doctor Unassigned, [place] [facility] XR CHEST 1 VW 2022-02-20 09:59:00 Christy Holliday [facility] LIPASE 2022-02-20 09:30:00 Christy Holliday [facility] TROPONIN I 2022-02-20 09:30:00 Christy Holliday [facility] COMP. METABOLIC PANEL (60828) 2022-02-20 09:30:00 Christy Holliday [facility] CBC WITH DIFF 2022-02-20 09:30:00 Christy Holliday [facility] N-TERMINAL PRO-BNP 2022-02-20 09:30:00 Chrsity Holliday [facility] NOTICE OF PRIVACY PRACTICES 2022-02-20 09:15:02 Doctor Unassigned, [facility] [facility] CONSENT/REFUSAL FOR DIAGNOSIS AND TREATMENT 2022-02-20 09:14:47 Doctor Unassigned, [place] [facility] Encounters Start Date/Time End Date/Time Encounter Type Admission Type Attending [facility] Care Facility Care Department Encounter ID Source 2023-12-22 21:51:00 2023-12-22 23:13:00 [id number] 2023-12-22 21:51:00 2023-12-22 23:13:00 Emergency Jenniferjuan alberto Trevblade [facility] [id number] 350.1.13.10 4.2.7.2.686 [id number] [facility] 2023-12-21 19:36:00 2023-12-21 21:52:00 Emergency X MELINDA MACIEL [facility] ERT [id number] [facility] 2023-12-21 19:36:00 2023-12-21 21:52:00 Emergency Melinda Maciel [facility] [id number] 350.1.13.10 4.2.7.2.686 [id number] [facility] 2023-11-10 19:29:00 2023-11-10 20:14:00 Emergency X CHRSITY HOLLIDAY [facility] ERT [id number] [facility] 2023-11-10 19:29:00 2023-11-10 20:14:00 Emergency Christy Holliday [facility] [id number] 350.1.13.10 4.2.7.2.686 [id number] [facility] 2023-10-27 00:49:00 2023-10-27 01:41:00 Emergency X ROBERTO NAVARRONT [facility] ERT [id number] [facility] 2023-10-27 00:49:00 2023-10-27 01:41:00 Emergency Jac Navarro [facility] [id number] 350.1.13.10 4.2.7.2.686 [id number] [facility] 2023-07-15 00:00:00 2023-07-15 00:00:00 Outpatient DARIEN LOBO [id number] Maria Elena [facility] 2023-06-16 11:30:00 2023-06-16 11:30:00 Outpatient DARIEN LOBO [id number] Maria Elena [facility] 2023-05-18 00:00:00 2023-05-18 00:00:00 Outpatient MARIA ELENA CHAN [id number] Maria Elena [facility] 2022-10-14 10:07:00 2022-10-14 14:39:00 Emergency X MELINDA MACIEL [facility] ERT [id number] [facility] 2022-10-14 10:07:00 2022-10-14 14:39:00 Emergency Melinda Maciel [facility] [id number] 350.1.13.10 4.2.7.2.686 [id number] [facility] 2022-03-12 05:15:00 2022-03-12 06:41:00 Emergency X CHRISTY HOLLIDAY [facility] ERT [id number] [facility] 2022-03-12 05:15:00 2022-03-12 06:41:00 Emergency Christy Holliday [facility] [id number] 350.1.13.10 4.2.7.2.686 [id number] [facility] 2022-02-20 04:17:00 2022-02-20 07:16:00 Emergency X CHRISTY HOLLIDAY [facility] ERT [id number] [facility] 2022-02-20 04:17:00 2022-02-20 07:16:00 Emergency Christy Holliday [facility] [id number] 350.1.13.10 4.2.7.2.686 [id number] [facility] 2021-02-03 11:10:00 2021-02-03 11:10:00 Outpatient DENISE CAMPO [facility] [id number] [facility] 2021-01-13 11:20:00 2021-01-13 11:20:00 Outpatient [facility] [id number] [facility] 2020-11-10 08:20:00 2020-11-10 08:20:00 Outpatient KARLEY ESTRADA [facility] [id number] [facility] Results Test Description Test Time Test Comments Results Result Co mments Source [facility] 04:53:26* Test Item Value Reference Range Interpretation Comme nts LIPASE (test code = 3731618870) 105 U/L 0-220 Lab Interpretation (test cod e = 07692-2) [facility] [id number] 04:34:24* Test Item Value Reference Range Interpretation [...] 33.0 g/dL 31.2-35.0 RDW-SD (test code = 98277-8) 50.9 fL 38.5-51.6 RDW-CV (test code = 788-0) 13.7 % 12.1-15.4 PLT (test code = 777-3) 232 150-328 MPV (test code = 23374-4) 8.7 fL 9.8-13.0 L NRBC/100 WBC (test code = 2378859363) 0.0 0.0-10.0 NRBC x10^3 (test code = 1390095435) See_Comment [Automated messa ge] The system which generated this result transmitted reference range: 10*3/?L. The reference range was not used to interpret this result as normal/abnormal. GRAN MAT (NEUT) % (test code = 770-8) 58.8 % IMM GRAN % (test code = 8213362016) 0.90 % LYMPH % (test code = 736-9) 27.8 % MONO % (test code = 5905-5) 10.5 % EOS % (test code = 713-8) 1.3 % BASO % (test code = 706-2) 0.7 % GRAN MAT x10^3(ANC) (test code = 2335732292) 5.68 10*3/uL 1.99-6.95 IMM GRAN x10^3 (test code = 8325526599) 0.09 10*3/uL 0.00-0.06 H LYMPH x10^3 (test code = 731-0) 2.69 10*3/uL 1.09-3.23 MONO x10^3 (test code = 742-7) 1.02 10*3/uL 0.36-1.02 EOS x10^3 (test code = 711-2) 0.13 10*3/uL 0.06-0.53 BASO x10^3 (test code = 704-7) 0.07 10*3/uL 0.01-0.09 Lab Interpretation (test code = 21462-2) [facility] [id number] 03:32:43Exam: CT Abdomen and Pelvis With Contrast, [...] acute osseous abnormality.Soft tissues: Small fat-containing inguinal hernias.[facility] 02:32:24* Test Item Value Reference Range Interpretation Comme nts ALCOHOL (test code = 4453403421) 117 mg/dL LOUISE (test code = LOUISE) <10 [id number] Toxic>100 Depression of OIL REFINER>400 [facility]atalities Reported [facility] (93329)2023-12-22 02:31:43* Test Item Value Reference Range Interpretation Comme nts NA (test code = 2229603569) 133 mmol/L 135-145 L K (test code = 1985454941) 3.3 mmol/L 3.5-5.0 L CL (test code = 4846332493) 102 mmol/L 98-108 CO2 TOTAL (test code = 8847867377) 25 mmol/L 23-31 AGAP (test code = 8807225551) 6 2-16 BUN (test code = 5594667537) 11 mg/dL 7-23 GLUCOSE (test code = 3216080185) 75 mg/dL 70-110 CREATININE (test code = 2519555098) 0.51 mg/dL 0.60-1.25 L TOTAL BILI (test code = 1028277475) 0.5 mg/dL 0.1-1.1 CALCIUM (test code = 7965659416) 8.9 mg/dL 8.6-10.6 T PROTEIN (test code = 3820111666) 7.2 g/dL 6.3-8.2 ALBUMIN (test code = 7654201299) 4.5 g/dL 3.5-5.0 ALK PHOS (test code = 9033514734) 46 U/L 34-122 ALTv (test code = 1742-6) 15 U/L 5-50 AST(SGOT) (test code = 8817977163) 24 U/L 13-40 eGFR (test code = 01545-8) 119.7 mL/min/1.73m2 CKD-EPI eGFR (2020). Assuming creatinine has been stable day-to-day for at least three months, the eGFR indicates Category G1 (>= 90 mL/min/1.73 m2) Lab Interpretation (test code = 22988-9) [facility] 02:31:43* Test Item Value Reference Range Interpretation Comme nts LIPASE (test code = 3443672574) 121 U/L 0-220 Lab Interpretation (test cod e = 43641-4) Normal [facility] Time / [id number] 02:21:02* Test Item Value Reference Range Interpretation Comme nts PROTIME PATIENT (test code = 5964-2) 10.5 10.1-12.6 INR (test code = 6301-6) 0.9 Normal INR <1.1; Warfarin Therapeutic range 2.0 to 3.0 or 2.5 to 3.5, depending upon the indications. Lab Interpretation (test code = 76910-6) Normal [facility] with [id number] 02:14:04* Test Item Value Reference Range Interpretation [...] 34.0 g/dL 31.2-35.0 RDW-SD (test code = 50839-7) 49.1 fL 38.5-51.6 RDW-CV (test code = 788-0) 13.5 % 12.1-15.4 PLT (test code = 777-3) 260 150-328 MPV (test code = 29331-3) 8.7 fL 9.8-13.0 L NRBC/100 WBC (test code = 2346558372) 0.0 0.0-10.0 NRBC x10^3 (test code = 9486077725) See_Comment [Automated messa ge] The system which generated this result transmitted reference range: 10*3/?L. The reference range was not used to interpret this result as normal/abnormal. GRAN MAT (NEUT) % (test code = 770-8) 64.3 % IMM GRAN % (test code = 4326770232) 0.90 % LYMPH % (test code = 736-9) 24.2 % MONO % (test code = 5905-5) 9.1 % EOS % (test code = 713-8) 0.7 % BASO % (test code = 706-2) 0.8 % GRAN MAT x10^3(ANC) (test code = 6379390990) 8.73 10*3/uL 1.99-6.95 H IMM GRAN x10^3 (test code = 2758832865) 0.12 10*3/uL 0.00-0.06 H LYMPH x10^3 (test code = 731-0) 3.28 10*3/uL 1.09-3.23 H MONO x10^3 (test code = 742-7) 1.23 10*3/uL 0.36-1.02 H EOS x10^3 (test code = 711-2) 0.10 10*3/uL 0.06-0.53 BASO x10^3 (test code = 704-7) 0.11 10*3/uL 0.01-0.09 H Lab Interpretation (test code = 52675-7) [facility]normal [facility] [id number] 10:16:22* Test Item Value Reference Range Interpretation Comments TROPONIN I (test code = 7047589855) 0.007 ng/mL See_Comment [Automated message] The system [...] of biotin. Lab Interpretation (test code = 23004-1) Normal [facility] [id number] 10:13:01* Test Item Value Reference Range Interpretation Comme nts NT-proBNP (test code = 9157995725) 52 pg/mL See_Comment [Automated message] The system which generated this result transmitted reference range: <=125. The reference range was not used to interpret this result as normal/abnormal. LOUISE (test code = LOUISE) Biotin has been reported to cause a negative bias, interpret results relative to patient's use of biotin. Lab Interpretation (test code = 42467-7) Normal [facility]. METABOLIC PANEL (70257)2022-02-20 10:04:02* Test Item Value Reference Range Interpretation Comme nts NA (test code = 8602483030) 137 mmol/L 135-145 K (test code = 8761751902) 3.6 mmol/L 3.5-5.0 CL (test code = 8100294400) 99 mmol/L 98-108 CO2 TOTAL (test code = 5852886677) 25 mmol/L 23-31 AGAP (test code = 1958695119) 2-16 BUN (test code = 9704944032) 6 mg/dL 7-23 L GLUCOSE (test code = 8285806157) 88 mg/dL 70-110 CREATININE (test code = 2728831894) 0.55 mg/dL 0.60-1.25 L TOTAL BILI (test code = 2298310848) 0.8 mg/dL 0.1-1.1 CALCIUM (test code = 1984804727) 8.9 mg/dL 8.6-10.6 T PROTEIN (test code = 3791182988) 7.5 g/dL 6.3-8.2 ALBUMIN (test code = 1632547820) 4.8 g/dL 3.5-5.0 ALK PHOS (test code = 3098662221) 113 U/L 34-122 ALTv (test code = 1742-6) 84 U/L 5-50 H AST(SGOT) (test code = 1903409739) 107 U/L 13-40 H eGFR (test code = 8443093810) mL/min/1.73m2 LOUISE (test code = LOUISE) Association [...] imaging tests). Lab Interpretation (test code = 31562-2) [facility]normal [facility], [id number] 10:03:21* Test Item Value Reference Range Interpretation Comme nts LIPASE (test code = 7001320480) 193 U/L 0-220 Lab Interpretation (test cod e = 74754-5) [facility] [id number] 09:39:17* Test Item Value Reference Range Interpretation Comme nts WBC (test code = 6690-2) See_Comment [Automated [employer]] The system which generated this result transmitted reference range: 4.20 - 10.70 10*3/?L. The reference range was not used to interpret this result as normal/abnormal. RBC (test code = 789-8) See_Comment [Automated [employer]] The system which generated this result transmitted [...] g/dL 31.2-35.0 H RDW-SD (test code = 68627-3) 44.4 fL 38.5-51.6 RDW-CV (test code = 788-0) 11.9 % 12.1-15.4 L PLT (test code = 777-3) See_Comment [Automated messa ge] The system which generated this result transmitted reference range: 150 - 328 10*3/?L. The reference range was not used to interpret this result as normal/abnormal. MPV (test code = 47654-8) 9.2 fL 9.8-13.0 L NRBC/100 WBC (test code = 1267120133) See_Comment [Automated [employer] ssage] The system which generated this result transmitted reference range: 0.0 - 10.0 /100 WBCs. The reference range was not used to interpret this result as normal/abnormal. NRBC x10^3 (test code = 3236070437) <0.01 See_Comment [Automated [employer] ge] The system which generated this result transmitted reference range: 10*3/?L. The reference range was not used to interpret this result as normal/abnormal. GRAN MAT (NEUT) % (test code = 770-8) 69.9 % IMM GRAN % (test code = 3543925113) 1.50 % LYMPH % (test code = 736-9) 18.9 % MONO % (test code = 5905-5) 7.0 % EOS % (test code = 713-8) 1.9 % BASO % (test code = 706-2) 0.8 % GRAN MAT x10^3(ANC) (test code = 5760226997) 7.15 10*3/uL 1.99-6.95 H IMM GRAN x10^3 (test code = 8519492674) 0.15 10*3/uL 0.00-0.06 H LYMPH x10^3 (test code = 731-0) 1.93 10*3/uL 1.09-3.23 MONO x10^3 (test code = 742-7) 0.72 10*3/uL 0.36-1.02 EOS x10^3 (test code = 711-2) 0.19 10*3/uL 0.06-0.53 BASO x10^3 (test code = 704-7) 0.08 10*3/uL 0.01-0.09 Lab Interpretation (test code = 07768-6) Abnormal [facility] Notes Date/Time Note Provider Source 2023-12-22 23:12:16 OfR1+wvXdcPtgJ5ZEuHI 8hxXAvj4KwGQhO 5kMEyKmqdcFVSbDkBt92t9PbMgh7cO9852 -02-13T23:12:16 Pt given printed and verbal discharge [...] with steady gait, in no apparent distress, 09597-1Zqorxiunv department QbtzFB6696-87-30M27:13:50Emergency department NoteTXT1.2.840.764311.1.13.104.2.7 .2.820905|[id number] for patient qfej30288-8XwkiSMGJMQXMIDTGozxaocc d C-CDA narrative [id number] Magaña RNUT[id number] 08PHCMHFAHQPQNQUGRIMEBMR0079-36-78 T23:13:501.2.840.761734.1.72.3.15| 1.2.840.914794.1.13.104.2.7.2.7278 [id number] Mary Machado Gómez MACHUCA [facility] 2023-12-22 21:41:55 qXExL4WbnR89WaZcvuek zKNaWFMPPWejXF ppCDHWDcsqrgIfkJywt6w+8+EPM0F15973 -02-13T21:41:55 Pt arrives ambulatory to ED reporting bleeding with stools and 10/10 abdominal pain. States he was here last night but had to leave before receiving results d/t having to work. Says the pain became worse so he came back in. 41685-1Olizovpbs department Triage iyyhZU0423-79-10Z81:48:52[facility] Triage noteTXT1.2.840.464958.1.13.104.2.7 .2.172587|[id number] for patient rcvy95082-4Smrfzbasz department NoteLNNARRATIVEFormatted C-CDA narrative [id number] L Williams RNUT[address] Aq[id number] 20HHIJAXXVDFRHPVCOBJVHZB4477-73-99 T21:48:521.2.840.659480.1.72.3.15| 1.2.840.407035.1.13.104.2.7.2.7278 [id number] Leah Lizama RN [facility] 2023-12-21 21:31:00 Kt3IfCpHN+m6DyC2lK/K N8R7Ufec06Hb3m 311zog+VHyAECDP0C+foi9Kj2j1q1S7268 -02-12T21:31:00 Patient leaving AMA,discussed risks of leaving against medical advice, Dr. Maciel aware and notified of patient's decision.Patient encouraged to seek medical attention for any new/prolonged/worsening of symptoms and stressed importance of follow up with a medical provider as soon as possible. AMA form explained, patient signed form.IV d'cd, dressing to site.Patient leaving ambulatory with steady gait, appears in no distress. 68019-6Zwylunqxy department EfnxID0641-60-38T41:38:39[facility] NoteTXT1.2.840.991752.1.13.104.2.7 .2.409743|[id number] for patient ieks49736-3PwbuQAFRNSBUDPFMlzpgdby d C-CDA narrative [id number] Magaña RN[address][id number] 74HSDDDBITVHTYLHXEWSTHYM0519-28-76 T21:38:391.2.840.187578.1.72.3.15| 1.2.840.952358.1.13.104.2.7.2.7278 [id number] Mary Magaña RN [facility] 2023-12-21 21:30:00 5Pw6Kf+JbaE7KLU13kpv vKmiJwJiOPCAma a1x3LR+fmWPA4oB0GG27zWX/psSzqS4693 -02-12T21:30:00 Pt wished to leave AMA. Pt states " yall were wonderful but 3am come real early." 28741-8Pzupzfbxn department IghlPZ2136-51-07F31:36:58[facility] NoteTXT1.2.840.586555.1.13.104.2.7 .2.777720|[id number] for patient koix03340-5FbtxSPWBHMTDNZBRkfgjfkb d C-CDA narrative textUT70 [address] [id number] 55DSHVSQVTESOSDEETZVDKRO1736-58-73 T21:36:581.2.840.759275.1.72.3.15| 1.2.840.947613.1.13.104.2.7.2.7278 [id number] [facility] 2023-12-21 21:26:22 DWjjyXiUfvBmfoVH1x4K uLzHbDQAbxoOsF R7VUQnO6nOUn7swl7UDfBO0y7GeUbj8353 -02-12T21:26:22 Pt asking to go outside and smoke, wants to go home and eat. Pt educated on risks of leaving AMA. Provider informed pt is in pain. 02311-8Vkizptnrk department EnjkSY7371-89-71K24:33:35[facility] NoteTXT1.2.840.073381.1.13.104.2.7 .2.303803|[id number] for patient xtim09264-2SsuqMHAIWDSDGKBTsaztfvk d C-CDA narrative [id number] R Shehadeh RNUT[address] [id number] 62ELDEYFKFAUAMLUKMTHKHPQ8873-17-05 T21:33:351.2.840.508097.1.72.3.15| 1.2.840.052774.1.13.104.2.7.2.7278 [id number] Leah King RN [facility] 2023-12-21 19:31:50 7ux9+4mbKXq9HghbC7nD N8gJYwPZd1sJbh xLmALvnQ3mjWiJf6eRnHFn6yw+UHnI40402023T19:31:50 Pt arrived ambulatory with complaints of bright red rectal bleeding and generalized abdominal pain this afternoon. Pt states his stool was normal consistency but continuous bright red blood. Denies this happening before.Pt is an alcoholic, had 2 beer [employer]. States he vomits all the time but not something new today. 82483-0Pjqisrujz department Triage elnnEJ5331-11-85D57:33:28[facility] Triage noteTXT1.2.840.714175.1.13.104.2.7 .2.834636|[id number] for patient yurb54479-2Ihketrxmx department NoteLNNARRATIVEFormatted C-CDA narrative [id number] D Roman RNUT[address] Wm[id number] 22CRNEOFBZCIHJQNQYHAGXCN2840-66-46 T19:33:281.2.840.738854.1.72.3.15| 1.2.840.049694.1.13.104.2.7.2.7278 [id number] Gabi Esqueda RN [facility] 2023-11-10 20:13:39 ydIhoNCUBb2UznSEBAc3 KcsC67l/TlPnCn 4hne/KP035eT4EOqOdQUv9mjgWUbzK9393 -01-02T20:13:39 Pt requesting to leave AMA. ERP notified. Pt counseled to remain, risks of leaving AMA including discussed with pt. Pt continued to decline further ER evaluation at this time. AMA papers signed, witnessed, and placed on patient's chart. Pt left ambulatory. VS stable, no ataxia noted, GCS 15, A&Ox4. 04993-7Uyclefsuy department HdtqJP8925-45-34N73:13:52[facility] NoteTXT1.2.840.035918.1.13.104.2.7 .2.324006|[id number] for patient kswz56123-2RhbrYBDSTCGKLFNGyznngpc d C-CDA narrative [id number] R Goodrich RN[id number] 09VZXZHVMTIDEXAGMAUKMHKR3000-86-48 T20:13:521.2.840.452473.1.72.3.15| 1.2.840.451531.1.13.104.2.7.2.7278 [id number] Briseida Medrano RN [facility] 2023-11-10 19:30:29 o2Or5/CtX6i5E2cay+7H HtdmVtxF/EYpEt rVAXGulC8HEmY/erZv99rEd1XJ4v1n9276 -11-10T19:30:29 Patient arrived to ED c/o SOB and COPD exacerbation. Symptoms started this morning. Patient wears 3L NC at home. Patient is a smoker. Patient states having the chills, diarrhea, and vomiting. States having sharp pains in chest from coughing. 69487-0Aqiagkmxk department Triage rcljNE8801-80-49M30:35:27[facility] Triage noteTXT1.2.840.345303.1.13.104.2.7 .2.777405|[id number] for patient ppgw95085-9Kllwjsqeo department NoteLNNARRATIVEFormatted C-CDA narrative [id number]-Qwgwy McInnis RN[id number] 13ABTXBPNPJUHHQEOIEXVQCN5354-33-04 T19:35:271.2.840.000825.1.72.3.15| 1.2.840.203065.1.13.104.2.7.2.7278 [id number] Sreedhar Gomez RN [facility]
--- NOTE | 2023-12-29 22:38 | ER ---
Nurse's Notes [facility] Name: Randy Briones Age: 53 yrs Sex: Male : 1970 Arrival Date: 12/29/2023 Time: 20:31 Bed 5 Private MD: Diagnosis: COPD/ Chronic obstructive pulmonary disease with (acute) exacerbation Presentation: 12/29 20:39 Chief complaint: Patient states: i take my albuterol and prednisone at the same time lg3 and multiple doctors have told me that could kill me. im short of breath. Coronavirus screen: Client denies travel out of the [place] in the last 14 days. At this time, the client does not indicate any symptoms associated with coronavirus-19. Ebola Screen: No symptoms or risks identified at this time. Initial Sepsis Screen: Does the patient meet any 2 criteria? No. Patient's initial sepsis screen is negative. Does the patient have a suspected source of infection? No. Patient's initial sepsis screen is negative. Risk Assessment: Do you want to hurt yourself or someone else? Patient reports no desire to harm self or others. Onset of symptoms is unknown. 20:39 Method Of Arrival: Ambulatory lg3 20:39 Acuity: CANDACE 4 lg3 Triage Assessment: 20:42 General: Appears in no apparent distress. comfortable, Behavior is anxious. Pain: lg3 Denies pain. EENT: No deficits noted. No signs and/or symptoms were reported regarding the EENT system. Neuro: No deficits noted. Macario Agitation-Sedation Scale (RASS): 0 - Alert and Calm Level of Consciousness is awake, alert, obeys commands, Oriented to person, place, time, situation. Cardiovascular: No deficits noted. Capillary refill < 3 seconds Clubbing of nail beds is absent JVD is absent Patient's skin is warm and dry. Respiratory: No deficits noted. Reports shortness of breath Airway is patent Respiratory effort is even, unlabored, Respiratory pattern is regular, symmetrical. GI: No deficits noted. Abdomen is round non-distended, obese, Bowel sounds present X 4 quads. Abd is soft and non tender X 4 quads. Reports upper abdominal pain, cramping. : No deficits noted. No signs and/or symptoms were reported regarding the genitourinary system. Derm: No deficits noted. No signs and/or symptoms reported regarding the dermatologic system. Skin is intact, is healthy with good turgor, Skin is dry, Skin is normal, Skin temperature is warm. Musculoskeletal: No deficits noted. No signs and/or symptoms reported regarding the musculoskeletal system. 22:48 Injury Description: rv Historical: - Allergies: 20:42 Lisinopril; lg3 - PMHx: 20:42 Alcoholism; COPD; home 02 3LNC PRN; Hypertension; hepatitis B (Hypertension); lg3 Osteoporosis; - PSHx: 20:42 Amputation of left index finger; lg3 - Immunization history:: Adult Immunizations unknown. - Social history:: Smoking status: Patient reports the use of cigarette tobacco products, smokes two packs cigarettes per day. Patient uses alcohol, patient/guardian reports chronic longstanding heavy alcohol consumption. - Family history:: not pertinent. Screenin:00 [facility] ED Fall Risk Assessment (Adult) History of falling in the last 3 months, rv including since admission No falls in past 3 months (0 pts) Score/Fall Risk Level 0 - 2 = Low Risk Oriented to surroundings, Maintained a safe environment, Educated pt \T\ family on fall prevention, incl call for assistance when getting out of bed, Assessed \T\ reinforced patient's understanding of fall precautions. 22:00 Abuse screen: Denies threats or abuse. Denies injuries from another. Nutritional rv screening: No deficits noted. Tuberculosis screening: No symptoms or risk factors identified. Assessment: 20:45 General: Appears in no apparent distress. Behavior is calm, cooperative, appropriate as9 for age. 20:45 Pain: Denies pain. Neuro: Level of Consciousness is awake, alert, obeys commands, as9 Oriented to person, place, time, situation. Cardiovascular: Capillary refill < 3 seconds Patient's skin is warm and dry. Respiratory: Airway is patent Respiratory effort is even, Respiratory pattern is regular, symmetrical. GI: Abdomen is round non-distended. : No signs and/or symptoms were reported regarding the genitourinary system. EENT: No signs and/or symptoms were reported regarding the EENT system. Derm: Skin is pink, warm \T\ dry. Musculoskeletal: Circulation, motion, and sensation intact. Range of motion: intact in all extremities. Vital Signs: 20:39 BP 149 / 99; Pulse 87; Resp 19 S; Temp 97.8(TE); Pulse Ox 100% on R/A; Weight 79.38 kg lg3 (R); Height 5 ft. 4 in. (R); 20:45 BP 167 / 99; Pulse 74; Resp 18; Temp 97.9; Pulse Ox 99% on R/A; as9 21:00 BP 132 / 97; Pulse 72; Resp 17; Pulse Ox 99% on R/A; as9 22:50 BP 115 / 63; Pulse 74; Resp 17; Temp 98; Pulse Ox 99% ; rv 20:39 Body Mass Index 30.04 (79.38 kg, 162.56 cm) lg3 ED Course: 20:35 Patient arrived in ED. kj1 20:41 Jose Crews MD is Attending Physician. sp4 20:42 Triage completed. lg3 20:42 Arm band placed on right wrist. lg3 22:00 Patient has correct armband on for positive identification. Client placed on continuous rv cardiac and pulse oximetry monitoring. NIBP monitoring applied. monitoring tech on. 22:48 Darrius Nayak, BRIGETTE is Primary Nurse. rv 22:48 No provider procedures requiring assistance completed. Patient did not have IV access rv during this emergency room visit. Administered Medications: 21:05 Drug: Albuterol Inhalation 2.5 mg Inhalation every 20 minutes x3 Route: Inhalation; rv 21:05 Drug: predniSONE PO 60 mg PO once Route: PO; rv 22:49 Follow up: Response: No adverse reaction; Marked relief of symptoms rv 21:21 Drug: Famotidine PO 20 mg PO once Route: PO; as9 22:49 Follow up: Response: No adverse reaction; Marked relief of symptoms rv 21:21 Drug: Pantoprazole PO 40 mg PO once Route: PO; as9 22:49 Follow up: Response: No adverse reaction; Marked relief of symptoms rv 21:21 Drug: diphenhydrAMINE PO 25 mg PO once Route: PO; as9 22:49 Follow up: Response: No adverse reaction; Marked relief of symptoms rv 21:21 Drug: Dicyclomine PO 20 mg PO once Route: PO; as9 22:49 Follow up: Response: No adverse reaction; Marked relief of symptoms rv 21:25 Drug: Albuterol Inhalation 2.5 mg Inhalation every 20 minutes x3 Route: Inhalation; as9 21:45 Drug: Albuterol Inhalation 2.5 mg Inhalation every 20 minutes x3 Route: Inhalation; as9 22:50 Follow up: Response: No adverse reaction; Marked relief of symptoms rv Medication: 22:48 VIS not applicable for this client. rv Outcome: 22:38 Discharge ordered by . letha 22:49 Discharged to home ambulatory, rv 22:49 Condition: good 22:49 Discharge instructions given to patient, Instructed on discharge instructions, follow up and referral plans. Demonstrated understanding of instructions, follow-up care, 22:50 Patient left the ED. rv Signatures: Darrius Nayak, RN RN rv Amelia Ndiaye kj1 Katherine Arauz RN RN lg3 Jose Crews MD MD sp4 Td Rojas RN RN as9
--- NOTE | 2023-12-29 22:38 | EDPHYS ---
Physician Documentation [facility] Name: Randy Briones Age: 53 yrs Sex: Male : 1970 Arrival Date: 12/29/2023 Time: 20:31 Bed 5 Private MD: ED Physician Jose Crews HPI: 12/29 20:41 This 53 yrs old Male presents to ER via Unassigned with complaints of sp4 Abdominal Burn, Shortness Of Breath. 22:31 This 53-year-old male who presents with abdominal burning and shortness of breath. sp4 Patient is well-known to me in fact patient was seen here yesterday for complaint of abdominal pain associated with shortness of breath. Patient has had full workup yesterday which was unremarkable and patient was discharged home. Continues to smoke and has history of alcoholism, COPD, oxygen dependency, hypertension, hepatitis B, osteoporosis. Patient also known to be noncompliant with his medical management and yesterday he went before his prescriptions could be given to him. Yesterday patient was prescribed 5-day course of prednisone also albuterol inhaler. He went home before his prescriptions could be given to him.. Historical: - Allergies: 20:42 Lisinopril; lg3 - PMHx: 20:42 Alcoholism; COPD; home 02 3LNC PRN; Hypertension; hepatitis B (Hypertension); lg3 Osteoporosis; - PSHx: 20:42 Amputation of left index finger; lg3 - Immunization history:: Adult Immunizations unknown. - Social history:: Smoking status: Patient reports the use of cigarette tobacco products, smokes two packs cigarettes per day. Patient uses alcohol, patient/guardian reports chronic longstanding heavy alcohol consumption. - Family history:: not pertinent. ROS: 22:31 Constitutional: Negative for fever, chills, and weight loss, positive shortness of sp4 breath and positive abdominal discomfort. Eyes: Negative for injury, pain, redness, and discharge, ENT: Negative for injury, pain, and discharge, Neck: Negative for injury, pain, and swelling, Cardiovascular: Positive shortness of breath, negative chest pain Respiratory: Positive shortness of breath and wheezing. Abdomen/GI: Positive abdominal discomfort and burning. Back: Negative for injury and pain, 22:31 All other systems are negative, Exam: 22:31 Constitutional: This is a well developed, well nourished patient who is awake, alert, sp4 and in no acute distress. Patient is ill-appearing but nontoxic. Head/Face: Normocephalic, atraumatic. Eyes: Pupils equal round and reactive to light, extra-ocular motions intact. Lids and lashes normal. Conjunctiva and sclera are not injected. Cornea within normal limits. Periorbital areas with no swelling, redness, or edema. ENT: Nares patent. No nasal discharge, no septal abnormalities noted. Tympanic membranes are normal and external auditory canals are clear. Oropharynx with no redness, swelling, or masses, exudates, or evidence of obstruction, uvula midline. Mucous membranes moist. Neck: Trachea midline, no thyromegaly or masses palpated, and no cervical lymphadenopathy. Supple, full range of motion without nuchal rigidity, or vertebral point tenderness. Chest/axilla: Normal chest wall appearance and motion. Nontender with no deformity. No lesions are appreciated. Cardiovascular: Regular rate and rhythm with a normal S1 and S2. No gallops, murmurs, or rubs. Normal PMI, no JVD. No pulse deficits. Respiratory: Lungs have equal breath sounds bilaterally, No rales, rhonchi , positive scattered expiratory wheezes and positive increased work of breathing. Abdomen/GI: Soft, with normal bowel sounds. No distension or tympany. No guarding or rebound. No evidence of tenderness throughout. Back: No spinal tenderness. No costovertebral tenderness. Skin: Warm, dry with normal turgor. Normal color with no rashes, no lesions, and no evidence of cellulitis. MS/ Extremity: Pulses equal, no cyanosis. Neurovascular intact. Full, normal range of motion. Neuro: Awake and alert, GCS 15, oriented to person, place, time, and situation. Cranial nerves II-XII grossly intact. Motor strength 5/5 in all extremities. Sensory grossly intact. Psych: Awake, alert, with orientation to person, place and time. Behavior, mood, and affect are within normal limits Vital Signs: 20:39 BP 149 / 99; Pulse 87; Resp 19 S; Temp 97.8(TE); Pulse Ox 100% on R/A; Weight 79.38 kg lg3 (R); Height 5 ft. 4 in. (R); 20:45 BP 167 / 99; Pulse 74; Resp 18; Temp 97.9; Pulse Ox 99% on R/A; as9 21:00 BP 132 / 97; Pulse 72; Resp 17; Pulse Ox 99% on R/A; as9 22:50 BP 115 / 63; Pulse 74; Resp 17; Temp 98; Pulse Ox 99% ; rv 20:39 Body Mass Index 30.04 (79.38 kg, 162.56 cm) lg3 MDM: 20:58 Patient medically screened. sp4 22:31 Differential diagnosis: inhalation injury, COPD exacerbation. Data reviewed: vital sp4 signs, nurses notes, old medical records, Workup from yesterday was reviewed. ED course: None today. 22:36 Consideration of Admission/Observation Escalation of care including sp4 admission/observation considered. ED course: Patient has improved after medications p.o. today. Patient stable for discharge home. Will advise alcohol cessation, tobacco cessation and compliance with home medications. Advised patient to continue his p.o. prednisone prescribed yesterday and also albuterol 2 puffs every 4 hours via Inhaler and spacer as advised yesterday.. Administered Medications: 21:05 Drug: Albuterol Inhalation 2.5 mg Inhalation every 20 minutes x3 Route: Inhalation; rv 21:05 Drug: predniSONE PO 60 mg PO once Route: PO; rv 22:49 Follow up: Response: No adverse reaction; Marked relief of symptoms rv 21:21 Drug: Famotidine PO 20 mg PO once Route: PO; as9 22:49 Follow up: Response: No adverse reaction; Marked relief of symptoms rv 21:21 Drug: Pantoprazole PO 40 mg PO once Route: PO; as9 22:49 Follow up: Response: No adverse reaction; Marked relief of symptoms rv 21:21 Drug: diphenhydrAMINE PO 25 mg PO once Route: PO; as9 22:49 Follow up: Response: No adverse reaction; Marked relief of symptoms rv 21:21 Drug: Dicyclomine PO 20 mg PO once Route: PO; as9 22:49 Follow up: Response: No adverse reaction; Marked relief of symptoms rv 21:25 Drug: Albuterol Inhalation 2.5 mg Inhalation every 20 minutes x3 Route: Inhalation; as9 21:45 Drug: Albuterol Inhalation 2.5 mg Inhalation every 20 minutes x3 Route: Inhalation; as9 22:50 Follow up: Response: No adverse reaction; Marked relief of symptoms rv Disposition Summary: 12/29/23 22:38 Discharge Ordered Notes: Location: Home sp4 Problem: new sp4 Symptoms: have improved sp4 Condition: Stable sp4 Diagnosis - COPD/ Chronic obstructive pulmonary disease with (acute) exacerbation sp4 Followup: sp4 - With: Private Physician - When: 7 - 10 days - Reason: Recheck today's complaints Discharge Instructions: - Discharge Summary Sheet sp4 - Chronic Obstructive Pulmonary Disease Exacerbation sp4 Forms: - Patient Portal Instructions sp4 Signatures: Darrius Nayak, RN RN rv Katherine Arauz RN RN lg3 Jose Crews MD MD sp4 Td Rojas RN RN as9
[2023-12-29 23:17] VITALS: BP 115/63; TEMP 98; O2SAT 99
== END ==
LOC: ER 20:31
DX: J44.1 Chronic obstructive pulmonary disease with (acute) exacerbation (principal); F10.20 Alcohol dependence, uncomplicated; F17.210 Nicotine dependence, cigarettes, uncomplicated; Z99.81 Dependence on supplemental oxygen; I10 Essential (primary) hypertension; Z88.8 Allergy status to other drugs, medicaments and biological substances
CPT/HCPCS: J7512; J7613

== ENCOUNTER 2024-02-04 00:32 | Emergency (ER) | payer OTHER ==
--- OUTSIDE RECORDS SUMMARY | 2024-02-04 00:38 | XMS REPORT | Continuity of Care Document ---
Author Name Unknown Address [address] [place] [address] [facility] thconnect Address 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 Role Phone JOHN GIRISHDELPHINEROMEO Primary Care Physician Unavailab JAC Haddad Attending Clinician Unavailable Jac Navarro MD Attending Clinician [phone] TYLER ROWE Attending Clinician Unavailab MELINDA Boothe Attending Clinician Unavailable Melinda Maciel DO Attending Clinician [phone] CHRISTY HOLLIDAY Attending Clinician Unavailable Christy Holliday MD Attending Clinician [phone] DARIEN LOBO Attending Clinician Unavailable MARIA ELENA CHAN MEDICAL Attending Hernandezia n Unavailable DENISE SUNG Attending Clinician Unavailable KARLEY ADAMS Attending Clinician Unavailable JAC NAVARRO Admitting Clinician Unavailable MELINDA MACIEL Admitting Clinician Unavailable CHRISTY HOLLIDAY Admitting Clinician Unavailable Payers Payer Name Policy Type Policy Number Effective Date Expirati on Date Source [facility] [id number] 2023 00:00:00 2024 00:00:00 [employer] [id number] 2023 00:00:00 [employer] 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 94 ON 9 [id number] 2023 00:00:00 Problems Condition Name Condition Details Condition Category Status Onset Date Resolution Date Last Treatment Date Treating Clinician Comments Source Acute exacerbati on of chronic obstructiv e pulmonary disease (COPD) Acute exacerbati on of chronic obstructiv e pulmonary disease (COPD) Disease Active 03-24 00:00: 00 [facility] Obesity (BMI 30-39.9) Obesity (BMI 30-39.9) Disease Active 03-24 00:00: 00 [facility] Allergies, Adverse Reactions, Alerts Allergy Name Allergy Type Status Severity Reaction(s) Onset Date Inactive Date Treating Clinician Comments Source Lisinopr il Propensi ty to adverse reaction s Active Anaphylaxis 03-24 00:00: 00 [facility] LISINOPR IL DRUG INGREDI Active Anaphylaxis 03-24 00:00: 00 [facility] Social History Social Habit Start Date Stop Date Quantity Comments Source History of tobacco use Smokes tobacco daily [facility] function 2023-12-23 00:00:00 2023-12-23 00:00:00 [facility] Alcohol intake 2023-12-23 00:00:00 2023-12-23 00:00:00 4.29 /d [facility] Exposure to SARS-CoV-2 (event) 2022-10-04 00:00:00 2022-10-14 10:25:00 Not sure [facility] Tobacco use and exposure 2018-03-24 00:00:00 2018-03-24 00:00:00 User of smokeless tobacco [facility] Tobacco Comment 2018-03-24 00:00:00 2018-03-24 00:00:00 trying to quit [facility] Sex Assigned At 1970 00:00:00 1970 00:00:00 [facility] Smoking Status Start Date Stop Date Source Smokes tobacco daily 2018-03-24 00:00:00 [facility] Medications Ordered Medication Name Filled Medication Name Start Date Stop Date Current Medication? Ordering Clinician Indication Dosage Frequency Signature (SIG) Comments Components Source HYDROcodone -acetaminop hen (NORCO) 10-325 mg tablet 1 tablet 01-13 13:15: 00 01-13 12:15 :00 No 1{tbl} 1 tablet, Oral, ONCE, 1 dose, On [facility] 01/14/24 at 0715, [facility] ipratropium -albuteroL (DUONEB) 0.5 mg-3 mg(2.5 mg base)/3 mL nebulizer solution 3 mL 01-13 13:00: 00 01-13 11:53 :00 No 3mL 3 mL, Inhalation , ONCE NOW, 1 dose, On [facility] 01/14/24 at 0700, [facility] ondansetron (ZOFRAN (PF)) injection 4 mg 01-13 11:30: 00 01-13 11:37 :00 No 4mg 4 mg, Slow IV Push, ONCE, 1 dose, On [facility] 01/14/24 at 0530, [facility] morpHINE (4 mg/mL) injection 4 mg 01-13 11:30: 00 01-13 11:37 :00 No 4mg 4 mg, Slow IV Push, ONCE, 1 dose, On [facility] 01/14/24 at 0530, STAT [facility] azithromyci n (ZITHROMAX Z-PORTER) 250 mg tablet 01-13 00:00: 00 Yes [id number] Take 500 mg on day 1 then 250 mg on days 2-5 [facility] predniSONE 20 mg tablet 01-13 00:00: 00 Yes [id number] Take 1 po tid x 2 days, then take 1 po bid x 3 days, then take 1 po daily x 3 days. [facility] acetaminoph en-codeine 300-30 mg tablet 01-13 00:00: 00 01-21 04:59 :00 Yes [id number] 1{tbl} Take 1 tablet by mouth every 6 (six) hours as needed for Pain (scale 7-10) (severe cough) for up to 7 days. Indication s: acute pain, severe cough [facility] KCL (KLOR-CON M20) tablet 40 mEq 12-23 05:00: 00 12-23 05:07 :00 No 40meq 40 mEq, Oral, ONCE, 1 dose, On Thu12/22/23 at 2300, [facility] NaCl 0.9% (NS) bolus infusion 1,000 mL 12-23 05:00: 00 12-23 05:09 :00 No 1000mL at 999 mL/hr, 1,000 mL, IV Infusion, ONCE, 1 dose, On Thu12/22/23 at 2300, [facility] ondansetron (ZOFRAN (PF)) injection 4 mg 12-23 04:30: 00 12-23 04:24 :00 No 4mg 4 mg, Slow IV Push, ONCE, 1 dose, On Thu12/22/23 at 2230, [facility] maalox:diph enhydrAMINE :lidocaine 2 % viscous 1:1:1 ([facility]) oral suspension 15 mL 12-23 04:15: 00 12-23 04:17 :00 No 15mL 15 mL, Oral, ONCE, 1 dose, On Thu12/22/23 at 2215, Routine [facility] famotidine (PEPCID (PF)) injection 20 mg 12-23 04:15: 00 12-23 04:15 :00 No 20mg 20 mg, Slow IV Push, ONCE, 1 dose, On Thu12/22/23 at 2215, [facility] HYDROcodone -acetaminop hen (NORCO) 10-325 mg tablet 1 tablet 12-22 04:30: 00 12-22 16:29 :00 Yes 1{tbl} 1 tablet, Oral, ONCE, 1 dose, On Thu12/21/23 at 2230, Routine [facility] pantoprazol e (PROTONIX) 80 mg in NaCl 0.9% (NS) 20 mL syringe 12-22 04:15: 00 12-22 16:14 :00 Yes 80mg 80 mg, IV Push, ONCE, 1 dose, On Thu12/21/23 at 2215, Administer over 2 Minutes, 20 mL [facility] iopamidol (ISOVUE 370-500 mL) injection 100 mL 12-22 03:30: 00 12-22 03:30 :00 No [id number] 100mL 100 mL, Intravenou s, ONCE, 1 dose, On Thu12/21/23 at 2130, Routine [facility] morpHINE (4 mg/mL) injection 4 mg 12-22 03:30: 00 12-22 02:16 :00 No 4mg 4 mg, Slow IV Push, ONCE, 1 dose, On Thu12/21/23 at 2130, Routine [facility] ondansetron (ZOFRAN (PF)) injection 4 mg 12-22 02:45: 00 12-22 02:02 :00 No 4mg 4 mg, Slow IV Push, ONCE, 1 dose, On Thu12/21/23 at 2045, Routine [facility] ondansetron 4 mg disintegrat ing tablet 12-22 00:00: 00 Yes [id number] 4mg Take 1 tablet by mouth every 8 (eight) hours as needed for Nausea and Vomiting (N/V). [facility] hydrocortis one 25 mg suppository 12-22 00:00: 00 Yes [id number] 25mg Insert 1 Suppositor y into rectum 2 (two) times daily as needed for Rectal itching/pa in. [facility] ondansetron 4 mg disintegrat ing tablet 12-22 00:00: 00 Yes [id number] 4mg Take 1 tablet by mouth every 8 (eight) hours as needed for Nausea and Vomiting (N/V). [facility] hydrocortis one 25 mg suppository 12-22 00:00: 00 Yes [id number] 25mg Insert 1 Suppositor y into rectum 2 (two) times daily as needed for Rectal itching/pa in. [facility] amoxicillin -clavulanat e 875-125 mg per tablet 12-22 00:00: 00 01-02 05:59 :00 Yes [id number] 1{tbl} Take 1 tablet by mouth every 12 (twelve) hours for 10 days. [facility] methylpredn isolone sod succ (SOLU-MEDRO L) injection 125 mg 2022-11 08:45: 00 10-27 20:44 :00 No 125mg 125 mg, Slow IV Push, ONCE, 1 dose, On Thu10/27/23 at 0245, STAT [facility] ipratropium -albuteroL (DUONEB) 0.5 mg-3 mg(2.5 mg base)/3 mL nebulizer solution 3 mL 2022-11 08:45: 00 10-27 20:44 :00 No 3mL 3 mL, Inhalation , ONCE NOW, 1 dose, On Thu10/27/23 at 0245, [facility]URYN [facility] diazePAM (VALIUM) tablet 10 mg 2022-11 07:45: 00 10-27 19:44 :00 No 10mg 10 mg, Oral, ONCE, 1 dose, On Thu10/27/23 at 0145, LAURYN [facility] levoFLOXaci n (LEVAQUIN) tablet 500 mg 2022-11 07:45: 00 10-27 19:44 :00 No 500mg 500 mg, Oral, ONCE, 1 dose, On Thu10/27/23 at 0145, [facility]URYN
Re ason for Anti-Infec tive: Empiric Non-Surgic al Prophylaxi s
Durat ion of therapy: Once (ED) [facility] iopamidol (ISOVUE 370-500 mL) injection 70 mL 2021-11 18:30: 00 10-14 18:30 :00 No [id number] 70mL 70 mL, Intravenou s, ONCE, 1 dose, On Thu10/14/22 at 1230, Routine [facility] methylpredn isolone sod succ (SOLU-MEDRO L) injection 125 mg 2021-11 18:00: 00 Yes 125mg 125 mg, Intravenou s, Q6H, First dose on Thu10/14/22 at 1200, Until Discontinu ed, Routine [facility] furosemide (LASIX) injection 40 mg 2021-11 17:45: 00 10-14 16:39 :00 No 40mg 40 mg, IV Push, ONCE, 1 dose, On Thu10/14/22 at 1145, LAURYN [facility] ipratropium -albuteroL (DUONEB) 0.5 mg-3 mg(2.5 mg base)/3 mL nebulizer solution 3 mL 2021-11 17:30: 00 10-14 16:41 :00 No 3mL 3 mL, Inhalation , ONCE, 1 dose, On Thu10/14/22 at 1130, Routine [facility] FENTanyl PF (SUBLIMAZE (PF)) injection 50 mcg 2021-11 16:45: 00 10-14 16:39 :00 No 50ug 50 mcg, Slow IV Push, ONCE, 1 dose, On Thu10/14/22 at 1045, Routine [facility] levoFLOXaci n 750 mg tablet 2021-11 00:00: 00 Yes [id number] 750mg Take 1 tablet by mouth every 24 (twenty-fo ur) hours. [facility] levoFLOXaci n 750 mg tablet 2021-11 00:00: 00 Yes [id number] 750mg Take 1 tablet by mouth every 24 (twenty-fo ur) hours. [facility] levoFLOXaci n 750 mg tablet 2021-11 00:00: 00 Yes [id number] 750mg Take 1 tablet by mouth every 24 (twenty-fo ur) hours. [facility] levoFLOXaci n 750 mg tablet 2021-11 00:00: 00 Yes [id number] 750mg Take 1 tablet by mouth every 24 (twenty-fo ur) hours. [facility] levoFLOXaci n 750 mg tablet 2021-11 00:00: 00 Yes [id number] 750mg Take 1 tablet by mouth every 24 (twenty-fo ur) hours. [facility] levoFLOXaci n 750 mg tablet 2021-11 00:00: 00 Yes [id number] 750mg Take 1 tablet by mouth every 24 (twenty-fo ur) hours. [facility] HYDROcodone -acetaminop hen (NORCO) 10-325 mg tablet 1 tablet 03-12 12:15: 00 03-12 11:21 :00 No 1{tbl} 1 tablet, Oral, ONCE, 1 dose, On Thu03/12/22 at 0715, Routine [facility] HYDROcodone -acetaminop hen 10-325 mg tablet 03-12 00:00: 00 03-20 04:59 :00 No [id number] 1{tbl} Take 1 tablet by mouth every 6 (six) hours as needed for Pain (scale 7-10) for up to 7 days. Indication s: acute pain [facility] ipratropium -albuteroL (DUONEB) 0.5 mg-3 mg(2.5 mg base)/3 mL nebulizer solution 3 mL 02-20 13:00: 00 Yes 3mL 3 mL, Inhalation , QID, First dose on Thu02/20/22 at 0800, Until Discontinu ed, Routine [facility] methylPREDN ISolone sod succ (SOLU-MEDRO L (PF)) injection 40 mg 02-20 11:45: 00 02-20 10:43 :00 No 40mg 40 mg, Intravenou s, ONCE, 1 dose, On Thu02/20/22 at 0645, STAT [facility] foLIC acid (FOLATE) tablet 1 mg 02-20 11:45: 00 02-20 10:41 :00 No 1mg 1 mg, Oral, ONCE, 1 dose, On Thu02/20/22 at 0645, [facility]URYN [facility] thiamine (VITAMIN B1) injection 100 mg 02-20 11:45: 00 02-20 10:43 :00 No 100mg 100 mg, Intravenou s, ONCE, 1 dose, On Kym 02/20/22 at 0645, LAURYN [facility] LORazepam (ATIVAN) injection 2 mg 02-20 11:45: 00 02-20 10:42 :00 No 2mg 2 mg, Slow IV Push, ONCE, 1 dose, On Kmy 02/20/22 at 0645, STAT [facility] ipratropium -albuteroL (DUONEB) 0.5 mg-3 mg(2.5 mg base)/3 mL nebulizer solution 3 mL 02-20 10:30: 00 02-20 09:34 :00 No 3mL 3 mL, Inhalation , ONCE, 1 dose, On [facility] 02/20/22 at 0530, Routine [facility] albuterol 90 mcg/actuati on inhaler 02-20 00:00: 00 Yes [id number] 2{puff} Inhale 2 Puffs every 4 (four) hours as needed for Wheezing or Shortness of Breath. [facility] albuterol 2.5 mg /3 mL (0.083 %) nebulizer solution 02-20 00:00: 00 Yes [id number] 2.5mg Inhale 3 mL every 4 (four) hours. May also nebulize one extra every 6 hours. [facility] budesonide- formoteroL 160-4.5 mcg/actuati on inhaler 02-20 00:00: 00 Yes [id number] 2{puff} Inhale 2 Puffs 2 (two) times daily. [facility] triamterene -hydrochlor othiazid 37.5-25 mg tablet 02-20 00:00: 00 Yes [id number] 1{tbl} Take 1 tablet by mouth daily. [facility] chlordiazeP OXIDE 25 mg capsule 02-20 00:00: 00 Yes [id number] 25mg Take 1 capsule by mouth every 6 (six) hours as needed for Anxiety, Agitation, Heart Rate => 100 or Detox. [facility] predniSONE 10 mg tablet 02-20 00:00: 00 Yes [id number] TAKE ONE TABLET BY MOUTH DAILY [facility] albuterol 90 mcg/actuati on inhaler 02-20 00:00: 00 Yes [id number] 2{puff} Inhale 2 Puffs every 4 (four) hours as needed for Wheezing or Shortness of Breath. [facility] albuterol 2.5 mg /3 mL (0.083 %) nebulizer solution 02-20 00:00: 00 Yes [id number] 2.5mg Inhale 3 mL every 4 (four) hours. May also nebulize one extra every 6 hours. [facility] budesonide- formoteroL 160-4.5 mcg/actuati on inhaler 02-20 00:00: 00 Yes [id number] 2{puff} Inhale 2 Puffs 2 (two) times daily. [facility] triamterene -hydrochlor othiazid 37.5-25 mg tablet 02-20 00:00: 00 Yes [id number] 1{tbl} Take 1 tablet by mouth daily. [facility] chlordiazeP OXIDE 25 mg capsule 02-20 00:00: 00 Yes [id number] 25mg Take 1 capsule by mouth every 6 (six) hours as needed for Anxiety, Agitation, Heart Rate => 100 or Detox. [facility] predniSONE 10 mg tablet 02-20 00:00: 00 Yes [id number] TAKE ONE TABLET BY MOUTH DAILY [facility] albuterol 90 mcg/actuati on inhaler 02-20 00:00: 00 Yes [id number] 2{puff} Inhale 2 Puffs every 4 (four) hours as needed for Wheezing or Shortness of Breath. [facility] albuterol 2.5 mg /3 mL (0.083 %) nebulizer solution 02-20 00:00: 00 Yes [id number] 2.5mg Inhale 3 mL every 4 (four) hours. May also nebulize one extra every 6 hours. [facility] budesonide- formoteroL 160-4.5 mcg/actuati on inhaler 02-20 00:00: 00 Yes [id number] 2{puff} Inhale 2 Puffs 2 (two) times daily. [facility] triamterene -hydrochlor othiazid 37.5-25 mg tablet 02-20 00:00: 00 Yes [id number] 1{tbl} Take 1 tablet by mouth daily. [facility] chlordiazeP OXIDE 25 mg capsule 02-20 00:00: 00 Yes [id number] 25mg Take 1 capsule by mouth every 6 (six) hours as needed for Anxiety, Agitation, Heart Rate => 100 or Detox. [facility] predniSONE 10 mg tablet 02-20 00:00: 00 Yes [id number] TAKE ONE TABLET BY MOUTH DAILY [facility] albuterol 90 mcg/actuati on inhaler 02-20 00:00: 00 Yes [id number] 2{puff} Inhale 2 Puffs every 4 (four) hours as needed for Wheezing or Shortness of Breath. [facility] albuterol 2.5 mg /3 mL (0.083 %) nebulizer solution 02-20 00:00: 00 Yes [id number] 2.5mg Inhale 3 mL every 4 (four) hours. May also nebulize one extra every 6 hours. [facility] budesonide- formoteroL 160-4.5 mcg/actuati on inhaler 02-20 00:00: 00 Yes [id number] 2{puff} Inhale 2 Puffs 2 (two) times daily. [facility] triamterene -hydrochlor othiazid 37.5-25 mg tablet 02-20 00:00: 00 Yes [id number] 1{tbl} Take 1 tablet by mouth daily. [facility] chlordiazeP OXIDE 25 mg capsule 02-20 00:00: 00 Yes [id number] 25mg Take 1 capsule by mouth every 6 (six) hours as needed for Anxiety, Agitation, Heart Rate => 100 or Detox. [facility] predniSONE 10 mg tablet 02-20 00:00: 00 Yes [id number] TAKE ONE TABLET BY MOUTH DAILY [facility] albuterol 90 mcg/actuati on inhaler 02-20 00:00: 00 Yes [id number] 2{puff} Inhale 2 Puffs every 4 (four) hours as needed for Wheezing or Shortness of Breath. [facility] albuterol 2.5 mg /3 mL (0.083 %) nebulizer solution 02-20 00:00: 00 Yes [id number] 2.5mg Inhale 3 mL every 4 (four) hours. May also nebulize one extra every 6 hours. [facility] budesonide- formoteroL 160-4.5 mcg/actuati on inhaler 02-20 00:00: 00 Yes [id number] 2{puff} Inhale 2 Puffs 2 (two) times daily. [facility] triamterene -hydrochlor othiazid 37.5-25 mg tablet 02-20 00:00: 00 Yes [id number] 1{tbl} Take 1 tablet by mouth daily. [facility] chlordiazeP OXIDE 25 mg capsule 02-20 00:00: 00 Yes [id number] 25mg Take 1 capsule by mouth every 6 (six) hours as needed for Anxiety, Agitation, Heart Rate => 100 or Detox. [facility] predniSONE 10 mg tablet 02-20 00:00: 00 Yes [id number] TAKE ONE TABLET BY MOUTH DAILY [facility] albuterol 90 mcg/actuati on inhaler 02-20 00:00: 00 Yes [id number] 2{puff} Inhale 2 Puffs every 4 (four) hours as needed for Wheezing or Shortness of Breath. [facility] albuterol 2.5 mg /3 mL (0.083 %) nebulizer solution 02-20 00:00: 00 Yes [id number] 2.5mg Inhale 3 mL every 4 (four) hours. May also nebulize one extra every 6 hours. [facility] budesonide- formoteroL 160-4.5 mcg/actuati on inhaler 02-20 00:00: 00 Yes [id number] 2{puff} Inhale 2 Puffs 2 (two) times daily. [facility] triamterene -hydrochlor othiazid 37.5-25 mg tablet 02-20 00:00: 00 Yes [id number] 1{tbl} Take 1 tablet by mouth daily. [facility] chlordiazeP OXIDE 25 mg capsule 02-20 00:00: 00 Yes [id number] 25mg Take 1 capsule by mouth every 6 (six) hours as needed for Anxiety, Agitation, Heart Rate => 100 or Detox. [facility] predniSONE 10 mg tablet 02-20 00:00: 00 Yes [id number] TAKE ONE TABLET BY MOUTH DAILY [facility] albuterol 90 mcg/actuati on inhaler 02-20 00:00: 00 Yes [id number] 2{puff} Inhale 2 Puffs every 4 (four) hours as needed for Wheezing or Shortness of Breath. [facility] albuterol 2.5 mg /3 mL (0.083 %) nebulizer solution 02-20 00:00: 00 Yes [id number] 2.5mg Inhale 3 mL every 4 (four) hours. May also nebulize one extra every 6 hours. [facility] budesonide- formoteroL 160-4.5 mcg/actuati on inhaler 02-20 00:00: 00 Yes [id number] 2{puff} Inhale 2 Puffs 2 (two) times daily. [facility] triamterene -hydrochlor othiazid 37.5-25 mg tablet 02-20 00:00: 00 Yes [id number] 1{tbl} Take 1 tablet by mouth daily. [facility] predniSONE 10 mg tablet 02-20 00:00: 00 Yes [id number] TAKE ONE TABLET BY MOUTH DAILY [facility] chlordiazeP OXIDE 25 mg capsule 02-20 00:00: 00 Yes [id number] 25mg Take 1 capsule by mouth every 6 (six) hours as needed for Anxiety, Agitation, Heart Rate => 100 or Detox. [facility] albuterol 90 mcg/actuati on inhaler 02-20 00:00: 00 Yes [id number] 2{puff} Inhale 2 Puffs every 4 (four) hours as needed for Wheezing or Shortness of Breath. [facility] albuterol 2.5 mg /3 mL (0.083 %) nebulizer solution 02-20 00:00: 00 Yes [id number] 2.5mg Inhale 3 mL every 4 (four) hours. May also nebulize one extra every 6 hours. [facility] budesonide- formoteroL 160-4.5 mcg/actuati on inhaler 02-20 00:00: 00 Yes [id number] 2{puff} Inhale 2 Puffs 2 (two) times daily. [facility] triamterene -hydrochlor othiazid 37.5-25 mg tablet 02-20 00:00: 00 Yes [id number] 1{tbl} Take 1 tablet by mouth daily. [facility] chlordiazeP OXIDE 25 mg capsule 02-20 00:00: 00 Yes [id number] 25mg Take 1 capsule by mouth every 6 (six) hours as needed for Anxiety, Agitation, Heart Rate => 100 or Detox. [facility] predniSONE 10 mg tablet 02-20 00:00: 00 Yes [id number] TAKE ONE TABLET BY MOUTH DAILY [facility] albuterol 5 mg/mL nebulizer solution 07-16 14:02: 20 Yes 2.5mg Inhale 2.5 mg every 6 (six) hours as needed for Wheezing or Shortness of Breath. [facility] albuterol 5 mg/mL nebulizer solution 07-16 14:02: 20 Yes 2.5mg Inhale 2.5 mg every 6 (six) hours as needed for Wheezing or Shortness of Breath. [facility] albuterol 5 mg/mL nebulizer solution 07-16 14:02: 20 Yes 2.5mg Inhale 2.5 mg every 6 (six) hours as needed for Wheezing or Shortness of Breath. [facility] 07-16 14:02: 20 Yes 2.5mg Inhale 2.5 mg every 6 (six) hours as needed for Wheezing or Shortness of Breath. [facility] mg/mL nebulizer solution 07-16 14:02: 20 Yes 2.5mg Inhale 2.5 mg every 6 (six) hours as needed for Wheezing or Shortness of Breath. [facility] al[facility] mg/mL nebulizer solution 07-16 14:02: 20 Yes 2.5mg Inhale 2.5 mg every 6 (six) hours as needed for Wheezing or Shortness of Breath. [facility] albuterol 5 mg/mL nebulizer solution 07-16 14:02: 20 Yes 2.5mg Inhale 2.5 mg every 6 (six) hours as needed for Wheezing or Shortness of Breath. [facility] albuterol 5 mg/mL nebulizer solution 07-16 14:02: 20 Yes 2.5mg Inhale 2.5 mg every 6 (six) hours as needed for Wheezing or Shortness of Breath. [facility] budesonide- formoterol 160-4.5 mcg/actuati on inhaler 07-16 00:00: 00 Yes 2{puff} Inhale 2 Puffs 2 (two) times daily. [facility] albuterol 2.5 mg /3 mL (0.083 %) nebulizer solution 07-16 00:00: 00 Yes 2.5mg Inhale 3 mL every 4 (four) hours as needed for Wheezing or Shortness of Breath. [facility] budesonide- formoterol 160-4.5 mcg/actuati on inhaler 07-16 00:00: 00 Yes 2{puff} Inhale 2 Puffs 2 (two) times daily. [facility] albuterol 2.5 mg /3 mL (0.083 %) nebulizer solution 07-16 00:00: 00 Yes 2.5mg Inhale 3 mL every 4 (four) hours as needed for Wheezing or Shortness of Breath. [facility] budesonide- formoterol 160-4.5 mcg/actuati on inhaler 07-16 00:00: 00 Yes 2{puff} Inhale 2 Puffs 2 (two) times daily. [facility] 2.5 mg /3 mL (0.083 %) nebulizer solution 07-16 00:00: 00 Yes 2.5mg Inhale 3 mL every 4 (four) hours as needed for Wheezing or Shortness of Breath. [facility] budesonide- formoterol 160-4.5 mcg/actuati on inhaler 07-16 00:00: 00 Yes 2{puff} Inhale 2 Puffs 2 (two) times daily. [facility] 2.5 mg /3 mL (0.083 %) nebulizer solution 07-16 00:00: 00 Yes 2.5mg Inhale 3 mL every 4 (four) hours as needed for Wheezing or Shortness of Breath. [facility] budesonide- formoterol 160-4.5 mcg/actuati on inhaler 07-16 00:00: 00 Yes 2{puff} Inhale 2 Puffs 2 (two) times daily. [facility] al[facility] 2.5 mg /3 mL (0.083 %) nebulizer solution 07-16 00:00: 00 Yes 2.5mg Inhale 3 mL every 4 (four) hours as needed for Wheezing or Shortness of Breath. [facility] budesonide- formoterol 160-4.5 mcg/actuati on inhaler 07-16 00:00: 00 Yes 2{puff} Inhale 2 Puffs 2 (two) times daily. [facility] 2.5 mg /3 mL (0.083 %) nebulizer solution 07-16 00:00: 00 Yes 2.5mg Inhale 3 mL every 4 (four) hours as needed for Wheezing or Shortness of Breath. [facility] budesonide- formoterol 160-4.5 mcg/actuati on inhaler 07-16 00:00: 00 Yes 2{puff} Inhale 2 Puffs 2 (two) times daily. [facility] albuterol 2.5 mg /3 mL (0.083 %) nebulizer solution 07-16 00:00: 00 Yes 2.5mg Inhale 3 mL every 4 (four) hours as needed for Wheezing or Shortness of Breath. [facility] budesonide- formoterol 160-4.5 mcg/actuati on inhaler 07-16 00:00: 00 Yes 2{puff} Inhale 2 Puffs 2 (two) times daily. [facility] albuterol 2.5 mg /3 mL (0.083 %) nebulizer solution 07-16 00:00: 00 Yes 2.5mg Inhale 3 mL every 4 (four) hours as needed for Wheezing or Shortness of Breath. [facility] triamterene -hydrochlor othiazide 37.5-25 mg per capsule 03-26 16:32: 14 Yes 1{capsu le} Take 1 capsule by mouth every morning. [facility] amLODIPine 10 mg tablet 03-26 16:32: 14 Yes 10mg Take 10 mg by mouth at bedtime. [facility] gabapentin 100 mg capsule 03-26 16:32: 14 Yes 100mg Take 100 mg by mouth 2 (two) times daily as needed ([facility] pain). [facility] foLIC acid 1 mg tablet 03-26 16:32: 14 Yes 1mg Take 1 mg by mouth daily. [facility] triamterene -hydrochlor othiazide 37.5-25 mg per capsule 03-26 16:32: 14 Yes 1{capsu le} Take 1 capsule by mouth every morning. [facility] amLODIPine 10 mg tablet 03-26 16:32: 14 Yes 10mg Take 10 mg by mouth at bedtime. [facility] gabapentin 100 mg capsule 03-26 16:32: 14 Yes 100mg Take 100 mg by mouth 2 (two) times daily as needed ([facility] pain). [facility] foLIC acid 1 mg tablet 03-26 16:32: 14 Yes 1mg Take 1 mg by mouth daily. [facility] triamterene -hydrochlor othiazide 37.5-25 mg per capsule 03-26 16:32: 14 Yes 1{capsu le} Take 1 capsule by mouth every morning. [facility] amLODIPine 10 mg tablet 03-26 16:32: 14 Yes 10mg Take 10 mg by mouth at bedtime. [facility] gabapentin 100 mg capsule 03-26 16:32: 14 Yes 100mg Take 100 mg by mouth 2 (two) times daily as needed ([facility] pain). [facility] foLIC acid 1 mg tablet 03-26 16:32: 14 Yes 1mg Take 1 mg by mouth daily. [facility] triamterene -hydrochlor othiazide 37.5-25 mg per capsule 03-26 16:32: 14 Yes 1{capsu le} Take 1 capsule by mouth every morning. [facility] amLODIPine 10 mg tablet 03-26 16:32: 14 Yes 10mg Take 10 mg by mouth at bedtime. [facility] gabapentin 100 mg capsule 03-26 16:32: 14 Yes 100mg Take 100 mg by mouth 2 (two) times daily as needed ([facility] pain). [facility] foLIC acid 1 mg tablet 03-26 16:32: 14 Yes 1mg Take 1 mg by mouth daily. [facility] triamterene -hydrochlor othiazide 37.5-25 mg per capsule 03-26 16:32: 14 Yes 1{capsu le} Take 1 capsule by mouth every morning. [facility] triamterene -hydrochlor othiazide 37.5-25 mg per capsule 03-26 16:32: 14 Yes 1{capsu le} Take 1 capsule by mouth every morning. [facility] amLODIPine 10 mg tablet 03-26 16:32: 14 Yes 10mg Take 10 mg by mouth at bedtime. [facility] amLODIPine 10 mg tablet 03-26 16:32: 14 Yes 10mg Take 10 mg by mouth at bedtime. [facility] gabapentin 100 mg capsule 03-26 16:32: 14 Yes 100mg Take 100 mg by mouth 2 (two) times daily as needed ([facility] pain). [facility] foLIC acid 1 mg tablet 03-26 16:32: 14 Yes 1mg Take 1 mg by mouth daily. [facility] gabapentin 100 mg capsule 03-26 16:32: 14 Yes 100mg Take 100 mg by mouth 2 (two) times daily as needed ([facility] pain). [facility] foLIC acid 1 mg tablet 03-26 16:32: 14 Yes 1mg Take 1 mg by mouth daily. [facility] triamterene -hydrochlor othiazide 37.5-25 mg per capsule 03-26 16:32: 14 Yes 1{capsu le} Take 1 capsule by mouth every morning. [facility] amLODIPine 10 mg tablet 03-26 16:32: 14 Yes 10mg Take 10 mg by mouth at bedtime. [facility] gabapentin 100 mg capsule 03-26 16:32: 14 Yes 100mg Take 100 mg by mouth 2 (two) times daily as needed ([facility] pain). [facility] foLIC acid 1 mg tablet 03-26 16:32: 14 Yes 1mg Take 1 mg by mouth daily. [facility] triamterene -hydrochlor othiazide 37.5-25 mg per capsule 03-26 16:32: 14 Yes 1{capsu le} Take 1 capsule by mouth every morning. [facility] amLODIPine 10 mg tablet 03-26 16:32: 14 Yes 10mg Take 10 mg by mouth at bedtime. [facility] gabapentin 100 mg capsule 03-26 16:32: 14 Yes 100mg Take 100 mg by mouth 2 (two) times daily as needed ([facility] pain). [facility] foLIC acid 1 mg tablet 03-26 16:32: 14 Yes 1mg Take 1 mg by mouth daily. [facility] budesonide- formoterol 160-4.5 mcg/actuati on inhaler 03-26 00:00: 00 Yes 2{puff} Inhale 2 Puffs 2 (two) times daily. [facility] budesonide- formoterol 160-4.5 mcg/actuati on inhaler 03-26 00:00: 00 Yes 2{puff} Inhale 2 Puffs 2 (two) times daily. [facility] budesonide- formoterol 160-4.5 mcg/actuati on inhaler 03-26 00:00: 00 Yes 2{puff} Inhale 2 Puffs 2 (two) times daily. [facility] budesonide- formoterol 160-4.5 mcg/actuati on inhaler 03-26 00:00: 00 Yes 2{puff} Inhale 2 Puffs 2 (two) times daily. [facility] budesonide- formoterol 160-4.5 mcg/actuati on inhaler 03-26 00:00: 00 Yes 2{puff} Inhale 2 Puffs 2 (two) times daily. [facility] budesonide- formoterol 160-4.5 mcg/actuati on inhaler 03-26 00:00: 00 Yes 2{puff} Inhale 2 Puffs 2 (two) times daily. [facility] budesonide- formoterol 160-4.5 mcg/actuati on inhaler 03-26 00:00: 00 Yes 2{puff} Inhale 2 Puffs 2 (two) times daily. [facility] budesonide- formoterol 160-4.5 mcg/actuati on inhaler 03-26 00:00: 00 Yes 2{puff} Inhale 2 Puffs 2 (two) times daily. [facility] Immunizations Ordered Immunization Name Filled Immunization Name Date Status Comments Source SARS-COV-2 COVID-19 PFIZER VACCINE 2021-02-03 00:00:00 Completed [facility] SARS-COV-2 COVID-19 PFIZER VACCINE 2021-02-03 00:00:00 Completed [facility] SARS-COV-2 COVID-19 PFIZER VACCINE 2021-02-03 00:00:00 Completed [facility] SARS-COV-2 COVID-19 PFIZER VACCINE 2021-01-13 00:00:00 Completed [facility] SARS-COV-2 COVID-19 PFIZER VACCINE 2021-01-13 00:00:00 Completed [facility] SARS-COV-2 COVID-19 PFIZER VACCINE 2021-01-13 00:00:00 Completed [facility] Pneumococcal Polysaccharide, PPSV23 (PNEUMOVAX) 2018-03-26 00:00:00 Completed [facility] Influenza Virus Vaccine Quad IM 3+ YRS 2018-03-26 00:00:00 Completed [facility] Pneumococcal Polysaccharide, PPSV23 (PNEUMOVAX) 2018-03-26 00:00:00 Completed [facility] Influenza Virus Vaccine Quad IM 3+ YRS 2018-03-26 00:00:00 Completed [facility] Pneumococcal Polysaccharide, PPSV23 (PNEUMOVAX) 2018-03-26 00:00:00 Completed [facility] Influenza Virus Vaccine Quad IM 3+ YRS 2018-03-26 00:00:00 Completed [facility] Pneumococcal Polysaccharide, PPSV23 (PNEUMOVAX) Unknown Completed [facility] Influenza Virus Vaccine Quad IM 3+ YRS Unknown Completed [facility] SARS-COV-2 COVID-19 PFIZER VACCINE Unknown Completed [facility] SARS-COV-2 COVID-19 PFIZER VACCINE Unknown Completed [facility] Pneumococcal Polysaccharide, PPSV23 (PNEUMOVAX) Unknown Completed [facility] Influenza Virus Vaccine Quad IM 3+ YRS Unknown Completed [facility] SARS-COV-2 COVID-19 PFIZER VACCINE Unknown Completed [facility] SARS-COV-2 COVID-19 PFIZER VACCINE Unknown Completed [facility] Pneumococcal Polysaccharide, PPSV23 (PNEUMOVAX) Unknown Completed [facility] Influenza Virus Vaccine Quad IM 3+ YRS Unknown Completed [facility] SARS-COV-2 COVID-19 PFIZER VACCINE Unknown Completed [facility] SARS-COV-2 COVID-19 PFIZER VACCINE Unknown Completed [facility] Pneumococcal Polysaccharide, PPSV23 (PNEUMOVAX) Unknown Completed [facility] Influenza Virus Vaccine Quad IM 3+ YRS Unknown Completed [facility] SARS-COV-2 COVID-19 PFIZER VACCINE Unknown Completed [facility] SARS-COV-2 COVID-19 PFIZER VACCINE Unknown Completed [facility] Pneumococcal Polysaccharide, PPSV23 (PNEUMOVAX) Unknown Completed [facility] Influenza Virus Vaccine Quad IM 3+ YRS Unknown Completed [facility] SARS-COV-2 COVID-19 PFIZER VACCINE Unknown Completed [facility] SARS-COV-2 COVID-19 PFIZER VACCINE Unknown Completed [facility] Vital Signs Vital Name Observation Time Observation Value Comments S ource Heart rate 2024-01-14 12:15:00 98 /min [facility] Body temperature 2024-01-14 12:15:00 36.56 Debbie [facility] Respiratory rate 2024-01-14 12:15:00 14 /min [facility] Oxygen saturation in Arterial blood by Pulse oximetry 2024-01-14 12:15:00 95 /min [facility] Systolic blood pressure 2024-01-14 12:00:00 140 mm[Hg] [facility] Diastolic blood pressure 2024-01-14 12:00:00 90 mm[Hg] [facility] Body height 2024-01-14 10:51:00 162.6 cm [facility] Body weight 2024-01-14 10:51:00 81.194 kg [facility] BMI 2024-01-14 10:51:00 30.73 kg/m2 [facility] Systolic blood pressure 2023-12-23 05:02:00 133 mm[Hg] [facility] Diastolic blood pressure 2023-12-23 05:02:00 84 mm[Hg] [facility] Heart rate 2023-12-23 05:02:00 78 /min [facility] Body temperature 2023-12-23 05:02:00 36.17 Debbie [facility] Respiratory rate 2023-12-23 05:02:00 17 /min [facility] Oxygen saturation in Arterial blood by Pulse oximetry 2023-12-23 05:02:00 91 /min [facility] Body height 2023-12-23 03:45:00 162.6 cm [facility] Body weight 2023-12-23 03:45:00 81.194 kg [facility] BMI 2023-12-23 03:45:00 30.73 kg/m2 [facility] Systolic blood pressure 2023-12-22 02:08:00 143 mm[Hg] [facility] Diastolic blood pressure 2023-12-22 02:08:00 92 mm[Hg] [facility] Heart rate 2023-12-22 02:08:00 81 [facility] Respiratory rate 2023-12-22 02:08:00 13 /min [facility] Oxygen saturation in Arterial blood by Pulse oximetry 2023-12-22 02:08:00 95 /min [facility] Body temperature 2023-12-22 01:33:00 36.72 Debbie [facility] Body height 2023-12-22 01:33:00 162.6 cm [facility] Body weight 2023-12-22 01:33:00 81.239 kg [facility] BMI 2023-12-22 01:33:00 30.74 kg/m2 [facility] Systolic blood pressure 2023-11-11 02:00:00 127 mm[Hg] [facility] Diastolic blood pressure 2023-11-11 02:00:00 87 mm[Hg] [facility] Heart rate 2023-11-11 02:00:00 79 /min [facility] Respiratory rate 2023-11-11 02:00:00 20 /min [facility] Oxygen saturation in Arterial blood by Pulse oximetry 2023-11-11 02:00:00 98 /min [facility] Body temperature 2023-11-11 01:31:00 36.28 Debbie [facility] Body height 2023-11-11 01:31:00 162.6 cm [facility] Body weight 2023-11-11 01:31:00 79.379 kg [facility] BMI 2023-11-11 01:31:00 30.04 kg/m2 [facility] Systolic blood pressure 2023-10-27 06:54:00 133 mm[Hg] [facility] Diastolic blood pressure 2023-10-27 06:54:00 94 mm[Hg] [facility] Heart rate 2023-10-27 06:54:00 95 /min [facility] Body temperature 2023-10-27 06:54:00 36.44 Debbie [facility] Respiratory rate 2023-10-27 06:54:00 22 /min [facility] Body height 2023-10-27 06:54:00 162.6 cm [facility] Body weight 2023-10-27 06:54:00 78.472 kg [facility] BMI 2023-10-27 06:54:00 29.70 kg/m2 [facility] Oxygen saturation in Arterial blood by Pulse oximetry 2023-10-27 06:54:00 94 /min [facility] Systolic blood pressure 2022-10-14 19:43:00 111 mm[Hg] [facility] Diastolic blood pressure 2022-10-14 19:43:00 74 mm[Hg] [facility] Heart rate 2022-10-14 19:43:00 98 /min [facility] Body temperature 2022-10-14 19:43:00 36.39 Debbie [facility] Respiratory rate 2022-10-14 19:43:00 22 /min [facility] Oxygen saturation in Arterial blood by Pulse oximetry 2022-10-14 19:43:00 94 /min [facility] Body height 2022-10-14 16:13:00 162.6 [facility] 2022-10-14 16:13:00 81.647 kg [facility] BMI 2022-10-14 16:13:00 30.90 kg/m2 [facility] Systolic blood pressure 2022-03-12 10:13:00 119 mm[Hg] [facility] Diastolic blood pressure 2022-03-12 10:13:00 75 mm[Hg] [facility] Heart rate 2022-03-12 10:13:00 105 /min [facility] Body temperature 2022-03-12 10:13:00 37.28 Debbie [facility] Respiratory rate 2022-03-12 10:13:00 19 /min [facility] Body height 2022-03-12 10:13:00 162.6 cm [facility] Body weight 2022-03-12 10:13:00 99.791 kg [facility] BMI 2022-03-12 10:13:00 37.76 kg/m2 [facility] Oxygen saturation in Arterial blood by Pulse oximetry 2022-03-12 10:13:00 96 /min [facility] Systolic blood pressure 2022-02-20 11:57:00 155 mm[Hg] [facility] Diastolic blood pressure 2022-02-20 11:57:00 88 mm[Hg] [facility] Heart rate 2022-02-20 11:57:00 105 /min [facility] Respiratory rate 2022-02-20 11:57:00 18 /min [facility] Oxygen saturation in Arterial blood by Pulse oximetry 2022-02-20 11:57:00 100 /min [facility] Body temperature 2022-02-20 09:25:00 37 Debbie [facility] Body height 2022-02-20 09:25:00 162.6 cm [facility] Body weight 2022-02-20 09:25:00 96.163 kg [facility] BMI 2022-02-20 09:25:00 36.39 kg/m2 [facility] Procedures Procedure Date / Time Performed Performing Clinician Source EKG-12 LEAD 2024-01-14 12:00:51 [facility] 2024-01-14 11:11:00 [facility] TROPONIN I 2024-01-14 11:11:00 [facility] COMP. METABOLIC PANEL ([id number]) 2024-01-14 11:11:00 Jac Navarro [facility] ETHANOL 2024-01-14 11:11:00 [facility] CBC WITH DIFF 2024-01-14 11:11:00 [facility] N-TERMINAL PRO-BNP 2024-01-14 11:11:00 Jac Navarro [facility] COVID-19 (ID NOW RAPID TESTING) 2024-01-14 11:11:00 Jac Navarro [facility] CONSENT/REFUSAL FOR DIAGNOSIS AND TREATMENT 2024-01-14 10:44:32 Doctor Unassigned, [place] [facility] LIPASE 2023-12-23 04:17:00 Tyler Rowe [facility] COMP. METABOLIC PANEL ([id number]) 2023-12-23 04:17:00 Tyler Rowe [facility] CBC WITH DIFF 2023-12-23 04:17:00 Tyler Rowe [facility] URINALYSIS 2023-12-23 04:17:00 Tyler Rowe [facility] CONSENT/REFUSAL FOR DIAGNOSIS AND TREATMENT 2023-12-23 03:40:32 Doctor Unassigned, [place] [facility] CT ABDOMEN PELVIS W CONTRAST 2023-12-22 02:31:05 Melinda Maciel [facility] LIPASE 2023-12-22 01:58:00 [facility] COMP. METABOLIC PANEL ([id number]) 2023-12-22 01:58:00 Melinda Maciel [facility] ETHANOL 2023-12-22 01:58:00 Melinda Maciel [facility] CBC WITH DIFF 2023-12-22 01:58:00 Melinda Maciel [facility] PROTHROMBIN TIME / INR 2023-12-22 01:58:00 Wali Maciel [facility] URINALYSIS 2023-12-22 01:58:00 Melinda Maciel [facility] CONSENT/REFUSAL FOR DIAGNOSIS AND TREATMENT 2023-12-22 01:19:14 Doctor Unassigned, [place] [facility] NOTICE OF PRIVACY PRACTICES 2023-11-11 01:24:24 Doctor Unassigned, [place] [facility] CONSENT/REFUSAL FOR DIAGNOSIS AND TREATMENT 2023-11-11 01:23:54 Doctor Unassigned, [place] [facility] COVID-19 (ID NOW RAPID TESTING) 2023-10-27 07:09:00 Jac Navarro [facility] NOTICE OF PRIVACY PRACTICES 2023-10-27 06:49:48 Doctor Unassigned, [place] [facility] CONSENT/REFUSAL FOR DIAGNOSIS AND TREATMENT 2023-10-27 06:47:40 Doctor Unassigned, [place] [facility] CT ABDOMEN PELVIS W CONTRAST 2022-10-14 17:33:00 Melinda Maciel [facility] XR CHEST 1 VW 2022-10-14 17:10:37 Melinda Maciel [facility] TROPONIN I 2022-10-14 16:37:00 Melinda Maciel [facility] COMP. METABOLIC PANEL ([id number]) 2022-10-14 16:37:00 Melinda Maciel [facility] CBC WITH DIFF 2022-10-14 16:37:00 Melinda Maciel [facility] PROTHROMBIN TIME / INR 2022-10-14 16:37:00 Wali Maciel [facility] URINALYSIS 2022-10-14 16:37:00 Melinda Maciel [facility] N-TERMINAL PRO-BNP 2022-10-14 16:37:00 [facility]AT[facility] 2022-10-14 15:56:36 Doctor Unassigned, [place] [facility] CONSENT/REFUSAL FOR DIAGNOSIS AND TREATMENT 2022-03-12 10:03:12 Doctor Unassigned, [place] [facility] XR CHEST 1 VW 2022-02-20 09:59:00 Christy Holliday [facility] LIPASE 2022-02-20 09:30:00 Christy Holliday [facility] TROPONIN I 2022-02-20 09:30:00 Christy Holliday [facility] COMP. METABOLIC PANEL ([id number]) 2022-02-20 09:30:00 Christy Holliday [facility] CBC WITH DIFF 2022-02-20 09:30:00 Christy Holliday [facility] N-TERMINAL PRO-BNP 2022-02-20 09:30:00 Christy Holliday [facility] NOTICE OF PRIVACY PRACTICES 2022-02-20 09:15:02 Doctor Unassigned, [place] [facility] CONSENT/REFUSAL FOR DIAGNOSIS AND TREATMENT 2022-02-20 09:14:47 Doctor Unassigned, [place] [facility] Encounters Start Date/Time End Date/Time Encounter Type Admission Type Attending [facility] Care Department Encounter ID Source 2024-01-14 04:46:00 2024-01-14 06:23:00 Emergency X JAC NAVARRO [facility] ERT [id number] [facility] 2024-01-14 04:46:00 2024-01-14 06:23:00 Emergency GracielaJac marlow J [facility] 1..840.114 350.1.13.10 4.2.7.2.686 [id number] [facility] 2023-12-22 21:51:00 2023-12-22 23:13:00 Emergency X ADEMIOLIBIAMONROETYLER [facility] ERT [id number] [facility] 2023-12-22 21:51:00 2023-12-22 23:13:00 Emergency AderibiherberthTyler avendano [facility] 1..840.114 350.1.13.10 4.2.7.2.686 [id number] [facility] 2023-12-21 19:36:00 2023-12-21 21:52:00 Emergency X MELINDA MACIEL [facility] ERT [id number] [facility] 2023-12-21 19:36:00 2023-12-21 21:52:00 Emergency Melinda Maciel [facility] 1.2.840.114 350.1.13.10 4.2.7.2.686 [id number] [facility] 2023-11-10 19:29:00 2023-11-10 20:14:00 Emergency X CHRISTY HOLLIDAY [facility] ERT [id number] [facility] 2023-11-10 19:29:00 2023-11-10 20:14:00 Emergency Christy Holliday [facility] 1.2.840.114 350.1.13.10 4.2.7.2.686 [id number] [facility] 2023-10-27 00:49:00 2023-10-27 01:41:00 Emergency X JAC NAVARRO [facility] ERT [id number] [facility] 2023-10-27 00:49:00 2023-10-27 01:41:00 Emergency Jac Navarro [facility] 1.2.840.114 350.1.13.10 4.2.7.2.686 [id number] [facility] 2023-07-15 00:00:00 2023-07-15 00:00:00 Outpatient DARIEN LOBO [id number] Maria Elena Alcantara 2023-06-16 11:30:00 2023-06-16 11:30:00 Outpatient DARIEN LOBO [id number] Maria Elena Alcantara 2023-05-18 00:00:00 2023-05-18 00:00:00 Outpatient MARIA ELENA CHAN [id number] Maria Elena Alcantara 2022-10-14 10:07:00 2022-10-14 14:39:00 Emergency X MELINDA MACIEL [facility] ERT [id number] [facility] 2022-10-14 10:07:00 2022-10-14 14:39:00 Emergency Melinda Maciel [facility] 1.2.840.114 350.1.13.10 4.2.7.2.686 [id number] [facility] 2022-03-12 05:15:00 2022-03-12 06:41:00 Emergency X CHRISTY HOLLIDAY [facility] ERT [id number] [facility] 2022-03-12 05:15:00 2022-03-12 06:41:00 Emergency Christy Holliday [facility] 1.2.840.114 350.1.13.10 4.2.7.2.686 [id number] [facility] 2022-02-20 04:17:00 2022-02-20 07:16:00 Emergency X CHRISTY HOLLIDAY [facility] ERT [id number] [facility] 2022-02-20 04:17:00 2022-02-20 07:16:00 Emergency Christy Holliday [facility] 1.2.840.114 350.1.13.10 4.2.7.2.686 [id number] [facility] 2021-02-03 11:10:00 2021-02-03 11:10:00 Outpatient DENISE CAMPO [facility] [id number] [facility] 2021-01-13 11:20:00 2021-01-13 11:20:00 Outpatient [facility] [id number] [facility] 2020-11-10 08:20:00 2020-11-10 08:20:00 Outpatient KARLEY ESTRADA [facility] [id number] [facility] Results Test Description Test Time Test Comments Results Result Co mments Source [facility]26* Test Item Value Reference Range Interpretation Comme nts LIPASE (test code = 6148794277) 105 U/L 0-220 Lab Interpretation (test cod e = 10793-6) [facility] [id number] 04:34:24* Test Item Value Reference Range Interpretation [...] 33.0 g/dL 31.2-35.0 RDW-SD (test code = 35598-9) 50.9 fL 38.5-51.6 RDW-CV (test code = 788-0) 13.7 % 12.1-15.4 PLT (test code = 777-3) 232 150-328 MPV (test code = 97155-1) 8.7 fL 9.8-13.0 L NRBC/100 WBC (test code = 7769422480) 0.0 0.0-10.0 NRBC x10^3 (test code = 3812944020) See_Comment [Automated messa ge] The system which generated this result transmitted reference range: 10*3/?L. The reference range was not used to interpret this result as normal/abnormal. GRAN MAT (NEUT) % (test code = 770-8) 58.8 % IMM GRAN % (test code = 9379914953) 0.90 % LYMPH % (test code = 736-9) 27.8 % MONO % (test code = 5905-5) 10.5 % EOS % (test code = 713-8) 1.3 % BASO % (test code = 706-2) 0.7 % GRAN MAT x10^3(ANC) (test code = 7541130588) 5.68 10*3/uL 1.99-6.95 IMM GRAN x10^3 (test code = 3851123226) 0.09 10*3/uL 0.00-0.06 H LYMPH x10^3 (test code = 731-0) 2.69 10*3/uL 1.09-3.23 MONO x10^3 (test code = 742-7) 1.02 10*3/uL 0.36-1.02 EOS x10^3 (test code = 711-2) 0.13 10*3/uL 0.06-0.53 BASO x10^3 (test code = 704-7) 0.07 10*3/uL 0.01-0.09 Lab Interpretation (test code = 12507-4) [facility] [id number] 03:32:43Exam: CT Abdomen and Pelvis With Contrast, [...] acute osseous abnormality.Soft tissues: Small fat-containing inguinal hernias.[facility] 02:32:24* Test Item Value Reference Range Interpretation Comme nts ALCOHOL (test code = 0185195215) 117 mg/dL LOUISE (test code = LOUISE) <10 Ctariwoe96-213 Toxic>100 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 ([id number])2023-12-22 02:31:43* Test Item Value Reference Range Interpretation Comme nts NA (test code = 4888716022) 133 mmol/L 135-145 L K (test code = 3318978994) 3.3 mmol/L 3.5-5.0 L CL (test code = 0790615109) 102 mmol/L 98-108 CO2 TOTAL (test code = 3126726171) 25 mmol/L 23-31 AGAP (test code = 9727904360) 6 2-16 BUN (test code = 5595579959) 11 mg/dL 7-23 GLUCOSE (test code = 3445021710) 75 mg/dL 70-110 CREATININE (test code = 8977307449) 0.51 mg/dL 0.60-1.25 L TOTAL BILI (test code = 7749739016) 0.5 mg/dL 0.1-1.1 CALCIUM (test code = 8119449376) 8.9 mg/dL 8.6-10.6 T PROTEIN (test code = 4143815465) 7.2 g/dL 6.3-8.2 ALBUMIN (test code = 7758518307) 4.5 g/dL 3.5-5.0 ALK PHOS (test code = 8258630995) 46 U/L 34-122 ALTv (test code = 1742-6) 15 U/L 5-50 AST(SGOT) (test code = 0732445126) 24 U/L 13-40 eGFR (test code = 37966-8) 119.7 mL/min/1.73m2 CKD-EPI eGFR (2020). Assuming creatinine has been stable day-to-day for at least three months, the eGFR indicates Category G1 (>= 90 mL/min/1.73 m2) Lab Interpretation (test code = 00532-2) [facility]normal [facility] 02:31:43* Test Item Value Reference Range Interpretation Comme nts LIPASE (test code = 4933360394) 121 U/L 0-220 Lab Interpretation (test cod e = 72702-5) Normal [facility] Time / ZHI2910-03-44 02:21:02* Test Item Value Reference Range Interpretation Comme nts PROTIME PATIENT (test code = 5964-2) 10.5 10.1-12.6 INR (test code = 6301-6) 0.9 Normal INR <1.1; Warfarin Therapeutic range 2.0 to 3.0 or 2.5 to 3.5, depending upon the indications. Lab Interpretation (test code = 60985-0) [facility] Pbrj1942-58-73 02:14:04* Test Item Value Reference Range Interpretation [...] 34.0 g/dL 31.2-35.0 RDW-SD (test code = 04932-6) 49.1 fL 38.5-51.6 RDW-CV (test code = 788-0) 13.5 % 12.1-15.4 PLT (test code = 777-3) 260 150-328 MPV (test code = 45087-1) 8.7 fL 9.8-13.0 L NRBC/100 WBC (test code = 8832611318) 0.0 0.0-10.0 NRBC x10^3 (test code = 8878945046) See_Comment [Automated messa ge] The system which generated this result transmitted reference range: 10*3/?L. The reference range was not used to interpret this result as normal/abnormal. GRAN MAT (NEUT) % (test code = 770-8) 64.3 % IMM GRAN % (test code = 1110251876) 0.90 % LYMPH % (test code = 736-9) 24.2 % MONO % (test code = 5905-5) 9.1 % EOS % (test code = 713-8) 0.7 % BASO % (test code = 706-2) 0.8 % GRAN MAT x10^3(ANC) (test code = 5806805618) 8.73 10*3/uL 1.99-6.95 H IMM GRAN x10^3 (test code = 5643307082) 0.12 10*3/uL 0.00-0.06 H LYMPH x10^3 (test code = 731-0) 3.28 10*3/uL 1.09-3.23 H MONO x10^3 (test code = 742-7) 1.23 10*3/uL 0.36-1.02 H EOS x10^3 (test code = 711-2) 0.10 10*3/uL 0.06-0.53 BASO x10^3 (test code = 704-7) 0.11 10*3/uL 0.01-0.09 H Lab Interpretation (test code = 69198-0) Abnormal [facility] W4838-72-98 10:16:22* Test Item Value Reference Range Interpretation Comments TROPONIN I (test code = 4152097685) 0.007 ng/mL See_Comment [Automated message] The system [...] of biotin. Lab Interpretation (test code = 16012-2) Normal [facility]N-[facility]MINAL RZK-PKY9544-38-14 10:13:01* Test Item Value Reference Range Interpretation Comme nts NT-proBNP (test code = 4480602802) 52 pg/mL See_Comment [Automated message] The system which generated this result transmitted reference range: <=125. The reference range was not used to interpret this result as normal/abnormal. LOUISE (test code = LOUISE) Biotin has been reported to cause a negative bias, interpret results relative to patient's use of biotin. Lab Interpretation (test code = 53617-1) Normal [facility] Center[facility]OLIC PANEL (96020)2022-02-20 10:04:02* Test Item Value Reference Range Interpretation Comme nts NA (test code = 4178807150) 137 mmol/L 135-145 K (test code = 5519262272) 3.6 mmol/L 3.5-5.0 CL (test code = 1723483242) 99 mmol/L 98-108 CO2 TOTAL (test code = 0649057528) 25 mmol/L 23-31 AGAP (test code = 0039588943) 2-16 BUN (test code = 8920685810) 6 mg/dL 7-23 L GLUCOSE (test code = 4631741927) 88 mg/dL 70-110 CREATININE (test code = 6816850973) 0.55 mg/dL 0.60-1.25 L TOTAL BILI (test code = 6439256504) 0.8 mg/dL 0.1-1.1 CALCIUM (test code = 0525458705) 8.9 mg/dL 8.6-10.6 T PROTEIN (test code = 4092202457) 7.5 g/dL 6.3-8.2 ALBUMIN (test code = 4153851508) 4.8 g/dL 3.5-5.0 ALK PHOS (test code = 4031829396) 113 U/L 34-122 ALTv (test code = 1742-6) 84 U/L 5-50 H AST(SGOT) (test code = 5088767546) 107 U/L 13-40 H eGFR (test code = 1507278257) mL/min/1.73m2 LOUISE (test code = LOUISE) Association [...] imaging tests). Lab Interpretation (test code = 29707-0) Abnormal [facility] CenterLIPASE, XDQWC0818-98-31 10:03:21* Test Item Value Reference Range Interpretation Comme nts LIPASE (test code = 6392873190) 193 U/L 0-220 Lab Interpretation (test cod e = 65776-6) Normal [facility] CenterCB WITH VESG6578-21-04 09:39:17* Test Item Value Reference Range Interpretation Comme nts WBC (test code = 6690-2) See_Comment [Automated Meaningfy] The system which generated this result transmitted [...] g/dL 31.2-35.0 H RDW-SD (test code = 47931-4) 44.4 fL 38.5-51.6 RDW-CV (test code = 788-0) 11.9 % 12.1-15.4 L PLT (test code = 777-3) See_Comment [Automated messa ge] The system which generated this result transmitted reference range: 150 - 328 10*3/?L. The reference range was not used to interpret this result as normal/abnormal. MPV (test code = 62025-2) 9.2 fL 9.8-13.0 L NRBC/100 WBC (test code = 9626423478) See_Comment [Automated Tellme ssage] The system which generated this result transmitted reference range: 0.0 - 10.0 /100 WBCs. The reference range was not used to interpret this result as normal/abnormal. NRBC x10^3 (test code = 0578635041) <0.01 See_Comment [Automated messa ge] The system which generated this result transmitted reference range: 10*3/?L. The reference range was not used to interpret this result as normal/abnormal. GRAN MAT (NEUT) % (test code = 770-8) 69.9 % IMM GRAN % (test code = 3235453103) 1.50 % LYMPH % (test code = 736-9) 18.9 % MONO % (test code = 5905-5) 7.0 % EOS % (test code = 713-8) 1.9 % BASO % (test code = 706-2) 0.8 % GRAN MAT x10^3(ANC) (test code = 5481779119) 7.15 10*3/uL 1.99-6.95 H IMM GRAN x10^3 (test code = 3181715308) 0.15 10*3/uL 0.00-0.06 H LYMPH x10^3 (test code = 731-0) 1.93 10*3/uL 1.09-3.23 MONO x10^3 (test code = 742-7) 0.72 10*3/uL 0.36-1.02 EOS x10^3 (test code = 711-2) 0.19 10*3/uL 0.06-0.53 BASO x10^3 (test code = 704-7) 0.08 10*3/uL 0.01-0.09 Lab Interpretation (test code = 05320-1) Abnormal [facility] Notes Date/Time Note Provider Source 2024-01-14 06:16:25 7Qcn9CikLl9Ms1x6umWQOkb2Xq8T/FhSiR0 NC5mID8pjlldRku+iGzV9aErbkcMm9967-1 3-07T06:16:25 Pt given printed and verbal discharge instructions regarding CP/bronchitis, encouraged hydration,Prescriptions providedDiscussed ibuprofen and to take with food to avoid GI distress, alternate with Tylenol to help with pain and/or feverDiscussed antibiotic/steroid therapy and to take until all completed unless adverse reaction occurs - if occurs, discontinue medication and follow up with pcp/seek medical attentionDiscussed tylenol #3 side affects and to avoid driving/operating machinery/or engaging in activities requiring alertness while taking.Pt verbalized understanding of instructions,pt encouraged to follow up with pcp and or cardiologistAdvised to seek medical attention for new/prolonged/worsening of symptoms,No adverse reaction to meds given in ER noted upon dischargePIV d'cd, dressing to site, catheter in tact.Awake, alert oriented, resp reg unlabored, skin w/d, pt leaving in no apparent distress, 80960-0Aisdzzfei department ZezbIB4874-57-78J65:17:20[facility] NoteTXT1.2.840.947695.1.13.104.2.7. 2.019813|[id number] for patient pxqy51418-0UohsRKAMEATAQANDvhgdzysw C-CDA narrative text[address] [id number] 3HAINPUQJQGWNEWOOWSABGD5624-93-91I0 6:17:201.2.840.813680.1.72.3.15|1.2 .840.471463.1.13.104.2.7.2.727879_2 [id number] [facility] 2024-01-14 04:49:43 x8KEwlvLPNpCv3h0tjE1RURxuv3Rz+E0JFo 4l5YJ6bZp9ngpELkyXofAe9fpVfSw7227-7 04:49:43 CC: "My COPD is acting up real bad since yesterday and making my (left) chest hurt." Pt reports symptoms started at 1630 yesterday. Pt states he took a Nitro SL this morning without relief. 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, takes 6 per day for osteoporosis.PMHx: see chartAwake, alert, oriented, resp reg unlabored, skin warm, color appropriate for race, moves all ext without difficulty, amb with steady gait 70391-8Owmgfbamq department Triage modsYO8906-33-20M57:55:49[facility] Triage noteTXT1.2.840.749184.1.13.104.2.7. 2.231616|[id number] for patient jayj27363-8Xendbunwy department NoteLNNARRATIVEFormatted C-CDA narrative [id number] R Shehadeh RNUT[address] [id number] 8LKXXIGDQLONCDZEBDGPVLS9087-38-83M6 4:55:491.2.840.041807.1.72.3.15|1.2 .840.921720.1.13.104.2.7.2.727879_2 [id number] Leah King RN [facility] - [facility] 2024-01-14 04:43:00 Ytr62dbvY3zjBTfTifRfa9p8HcDgte1Z9ra djsmrB+9ipj5GfmvzshYb62xNk5a/04:43:00Associated Order(s): EKG-12 Lead ROUTINE ONCEPre-Procedure Diagnose(s): Chest pain, unspecified typePost-Procedure Diagnose(s): Chest pain, unspecified type [facility] Emergency Department NotePatient Name: Randy BrionesDate of : 1970 53 year old maleTreatment Room: TX1/BQ2Pimjgne Record Number: [id number] Care Physician: Adrianna King Escorted by: Family [5]Mode of Arrival: Personal means [1]EMS Treatment Prior to ED Arrival:PLANNER treatment: NTGPTA treatment comments: 0.4 mg SL taken PLANNER, no releifTravel and Exposure Screening:SymptomsDoes patient have any of these symptoms?: (not recorded)Exposure ScreeningHas patient had contact with someone with a communicable disease in the last month?: (not recorded)Diseases exposed to:: (not recorded)Is Patient ?: (not recorded)Exposure Date: (not recorded)Chief Complaint:Chief ComplaintPatient presents with Chest PainHistory of Present Illness:53 y.o. male with COPD, now with left sided chest pain since yesterday, worse this a.m., prompting ED visit. Patient also reports SOB and worsening of his copd. Denies fever/chills.Past Medical History/Immunizations:Past Medical History:Diagnosis Date Alcohol abuse Alcohol withdrawal COPD (chronic obstructive pulmonary disease) Hypertension Tobacco abuseTetanus received in last 5 years: NoAllergies:AllergiesAllergen Reactions Lisinopril AnaphylaxisPast Social History:Tobacco UseEvery DaySmokeless Tobacco: Current user of smokeless tobacco.Comments: trying to quitAlcohol UseYes; 30.0 standard drinks of alcohol per week; 30 Cans of beer.Drug UseNo.Past Surgical History:No past surgical history on file.Review of Systems:Review of SystemsConstitutional: Positive for fatigue. Negative for chills and fever.HENT: Negative.Eyes: Negative.Respiratory: Positive for cough, shortness of breath and wheezing.Cardiovascular: Positive for chest pain. Negative for palpitations and leg swelling.Gastrointestinal: Negative.Genitourinary: Negative.Musculoskeletal: Negative.Skin: Negative.Neurological: Negative.Psychiatric/Behavioral: Negative.Endocrine: Endocrine negativePhysical Exam:ED Triage VitalsWeight 01/14/24 045 81.2 kg (179 lb)Actual or estimated 01/14/24450 Estimated by patient/family reportHeight 01/14/24450 1.626 m (5' 4")BP 01/14/24 045 (!) 154/96Pulse 01/14/24450 102Resp 01/14/24450 20Temp 01/14/24450 36.8 ?C (98.2 ?F)Temp source 01/14/24450 OralSpO2 01/14/24454 91 %Measured on 01/14/24450 Room airPhysical ExamVitals and nursing note reviewed.Constitutional:General: He is not in acute distress.Appearance: Normal appearance. He is not ill-appearing, toxic-appearing or diaphoretic.HENT:Head: Normocephalic.Mouth/Throat:Mouth: Mucous membranes are moist.Eyes:Pupils: Pupils are equal, round, and reactive to light.Cardiovascular:Rate and Rhythm: Normal rate.Pulses: Normal pulses.Heart sounds: Normal heart sounds.Pulmonary:Effort: No respiratory distress.Breath sounds: No stridor. Wheezing present. No rhonchi or rales.Comments: Good air movement bilaterallyChest:Chest wall: No tenderness.Abdominal:Palpations: Abdomen is soft.Musculoskeletal:General: Normal range of motion.Skin:General: Skin is warm.Capillary Refill: Capillary refill takes less than 2 seconds.Neurological:General: No focal deficit present.Mental Status: He is alert and oriented to person, place, and time.Psychiatric:Mood and Affect: Mood normal.Behavior: Behavior normal.Radiology:XR CHEST 1 VWPreliminary ResultPROCEDURE: XR CHEST 1 VWCLINICAL INDICATION: chest painCOMPARISON: Chest radiograph dated 10/27/2023FINDINGS:No focal consolidation is identified. Linear parenchymal band is seen atthe left lung base. No pleural effusion or pneumothorax is seen. The heartis normal in size.No acute bony abnormality.IMPRESSIONNo acute intrathoracic abnormality.Preliminary Report Dictated by Resident: Max Nur Results:Lab ResultsCOMP. METABOLIC PANEL (74555) - AbnormalResult Value Ref RangeNA 138 135 - 145 mmol/LK 3.9 3.5 - 5.0 mmol/LCL 101 98 - 108 mmol/LCO2 TOTAL 29 23 - 31 mmol/LAGAP 8 2 - 16BUN 16 7 - 23 mg/dLGLUCOSE 92 70 - 110 mg/dLCREATININE 0.96 0.60 - 1.25 mg/dLTOTAL BILI 0.7 0.1 - 1.1 mg/dLCALCIUM 9.0 8.6 - 10.6 mg/Padma PROTEIN 8.0 6.3 - 8.2 g/dLALBUMIN 4.5 3.5 - 5.0 g/dLALK PHOS 60 34 - 122 U/LALTv 27 5 - 50 U/LAST(SGOT) 49 (*) 13 - 40 U/LeGFR 93.3 mL/min/1.16g0NFF WITH DIFF - AbnormalWBC 11.59 (*) 4.20 - 10.70 10*3/?LRBC 4.47 4.26 - 5.52 10*6/?LHGB 15.2 12.2 - 16.4 g/dLHCT 44.9 38.4 - 49.3 %MCV 100.4 (*) 81.7 - 95.6 fLMCH 34.0 (*) 26.1 - 32.7 pgMCHC 33.9 31.2 - 35.0 g/dLRDW-SD 54.1 (*) 38.5 - 51.6 fLRDW-CV 14.6 12.1 - 15.4 %PLT 257 150 - 328 10*3/?LMPV 9.0 (*) 9.8 - 13.0 fLNRBC/100 WBC 0.0 0.0 - 10.0 /100 WBCsNRBC x10^3 <0.01 10*3/?LGRAN MAT (NEUT) % 61.8 %IMM GRAN % 0.90 %LYMPH % 25.4 %MONO % 8.3 %EOS % 2.7 %BASO % 0.9 %GRAN MAT x10^3(ANC) 7.17 (*) 1.99 - 6.95 10*3/uLIMM GRAN x10^3 0.11 (*) 0.00 - 0.06 10*3/uLLYMPH x10^3 2.94 1.09 - 3.23 10*3/uLMONO x10^3 0.96 0.36 - 1.02 10*3/uLEOS x10^3 0.31 0.06 - 0.53 10*3/uLBASO x10^3 0.10 (*) 0.01 - 0.09 10*3/uLN-TERMINAL PRO-BNP - AbnormalNT-proBNP 188 <=125 pg/mLTROPONIN I - NormalTROPONIN I 0.009 <=0.034 ng/mLLIPASE - NormalLIPASE 85 0 - 220 U/LCOVID-19 (ID NOW RAPID TESTING) - OkvfutLOZW-FdO-7 Rapid ID NOW Not Detected Not DetectedETHANOLALCOHOL 62 mg/dLEKG:If EKG completed, see Procedure Note.Orders and Treatments:Orders Placed This EncounterProcedures XR CHEST 1 VW TROPONIN I COMP. METABOLIC PANEL (72013) LIPASE, SERUM CBC WITH DIFF N-Terminal Pro-Bnp Ethanol COVID-19 (ID NOW TESTING) Lab Only COVID Interpretation O2 Per ProtocolOrders Placed This EncounterMedications morpHINE (4 mg/mL) injection 4 mg ondansetron (ZOFRAN (PF)) injection 4 mg ipratropium-albuteroL (DUONEB) 0.5 mg-3 mg(2.5 mg base)/3 mL nebulizer solution 3 mLFirst Provider Eval:ED EventsDate/Time Event User Bwvxflqq90/07/24 0510 Medical Screening Begins JAC NAVARRO MD --01/14/24 0510 First Provider Evaluation JAC NAVARRO MD --ED COURSEDiagnosis/Impression as of 01/14/24 0605Chest pain, unspecified typeBronchitisProcedures:EKG-12 Lead ROUTINE ONCEDate/Time: 01/14/2024 5:24 AMPerformed by: Jac Navarro MDAuthorized by: Jac Navarro MDECG interpreted by ED Physician in the absence of a prizer hand: yesPrevious ECG:Previous ECG: Compared to currentSimilarity: No changeInterpretation:Interpretation : non-specificRate:ECG rate: 100ECG rate assessment: normalRhythm:Rhythm: sinus rhythmEctopy:Ectopy: noneQRS:QRS axis: NormalQRS intervals: NormalQRS conduction: RBBBST segments:ST segments: Non-specificT waves:T waves: non-specificMDM:Medical Decision MakingAmount and/or Complexity of Data ReviewedLabs: ordered.Radiology: ordered.RiskPrescription drug management.Parenteral controlled substances.A) COPD, Bronchitis, Chest Pain-stableDisposition/Condition: Home, Steroid taper, Zpak, Tylenol # 3 prn, ER warnings, f/u PCPED DispositionNoneDischarge Medications:Patient's MedicationsSTART taking these medicationsNo medications on fileCONTINUE taking these medications which have NOT CHANGEDALBUTEROL 2.5 MG /3 ML (0.083 %) NEBULIZER SOLUTION Inhale 3 mL every 4 (four) hours as needed for Wheezing or Shortness of Breath.ALBUTEROL 2.5 MG /3 ML (0.083 %) NEBULIZER SOLUTION Inhale 3 mL every 4 (four) hours. May also nebulize one extra every 6 hours.ALBUTEROL 5 MG/ML NEBULIZER SOLUTION Inhale 2.5 mg every 6 (six) hours as needed for Wheezing or Shortness of Breath.ALBUTEROL 90 MCG/ACTUATION INHALER Inhale 2 Puffs every 4 (four) hours as needed for Wheezing or Shortness of Breath.AMLODIPINE 10 MG TABLET Take 10 mg by mouth at bedtime.BUDESONIDE-FORMOTEROL 160-4.5 MCG/ACTUATION INHALER Inhale 2 Puffs 2 (two) times daily.BUDESONIDE-FORMOTEROL 160-4.5 MCG/ACTUATION INHALER Inhale 2 Puffs 2 (two) times daily.BUDESONIDE-FORMOTEROL 160-4.5 MCG/ACTUATION INHALER Inhale 2 Puffs 2 (two) times daily.CHLORDIAZEPOXIDE 25 MG CAPSULE Take 1 capsule by mouth every 6 (six) hours as needed for Anxiety, Agitation, Heart Rate => 100 or Detox.FOLIC ACID 1 MG TABLET Take 1 mg by mouth daily.GABAPENTIN 100 MG CAPSULE Take 100 mg by mouth 2 (two) times daily as needed (MSK pain).HYDROCORTISONE 25 MG SUPPOSITORY Insert 1 Suppository into rectum 2 (two) times daily as needed for Rectal itching/pain.LEVOFLOXACIN 750 MG TABLET Take 1 tablet by mouth every 24 (twenty-four) hours.ONDANSETRON 4 MG DISINTEGRATING TABLET Take 1 tablet by mouth every 8 (eight) hours as needed for Nausea and Vomiting (N/V).PREDNISONE 10 MG TABLET TAKE ONE TABLET BY MOUTH DAILYTRIAMTERENE-HYDROCHLOROTHIAZID 37.5-25 MG TABLET Take 1 tablet by mouth daily.TRIAMTERENE-HYDROCHLOROTHIAZI DE 37.5-25 MG PER CAPSULE Take 1 capsule by mouth every morning.START taking Modified Medications as PrescribedNo medications on fileSTOP taking these medicationsNo medications on fileFollow-up:Electronically signed by:Jac Navarro MD01/14/24 06 52981-6Xonqveujs Emergency department AcsqOL8523-09-49C98:00:50Physician Emergency department NoteTXT1.2.840.659283.1.13.104.2.7. 2.293029|[id number] for patient yldf08752-4Amukkufly department NoteLNNARRATIVEFormatted C-CDA narrative text[address] Iw[id number] 4RIVUWQWUYMKXWYOEELGOUP7112-21-74P2 6:00:501.2.840.732138.1.72.3.15|1.2 .840.036357.1.13.104.2.7.2.727879_2 [id number] [facility] 2023-12-22 23:12:16 OfR1+leGuvQffX6YCqAA8iySVzn0EyXEjH6 gGWgXlezxVIGnMzDz78d4KjLkl8gU4748-2 12-22T23:12:16 Pt given printed and verbal discharge instructions [...] with steady gait, in no apparent distress, 12604-9Yjtkicufm department JobyHZ6348-64-59U56:13:50Emergency department NoteTXT1.2.840.128156.1.13.104.2.7. 2.639245|[id number] for patient llpu64076-4YfedUVQJAQTMFXOFpxfadrci C-CDA narrative [id number] BRADFORD[address] TpljGehus[id number] 1MJPFYUTHUGOPEMPKUAOIQZ7970-14-71C7 3:13:501.2.840.633118.1.72.3.15|1.2 .840.187949.1.13.104.2.7.2.727879_2 [id number] Mary Magaña RN [facility] 2023-12-22 21:41:55 jJOhT1XdtJ26IaTocvpwmRPyEBANLVsvZBv gAAYFJtxpihMzcUqdf2d+8+FRE5L26895-1 12-22T21:41:55 Pt arrives ambulatory to ED reporting bleeding with stools and 10/10 abdominal pain. States he was here last night but had to leave before receiving results d/t having to work. Says the pain became worse so he came back in. 55751-0Aqteynkpz department Triage drnbPG6354-30-98Y82:48:52[facility] Triage noteTXT1.2.840.778378.1.13.104.2.7. 2.102690|[id number] for patient zdau73094-2Cvaphjweb department NoteLNNARRATIVEFormatted C-CDA narrative [id number] L Williams RNUT[address] Mt[id number] 6DGUBJHZZQOZQSXQMEUYVER7451-07-47M0 1:48:521.2.840.673101.1.72.3.15|1.2 .840.564739.1.13.104.2.7.2.727879_2 [id number] Leah Lizama RN [facility] 2023-12-21 21:31:00 Iu0EyXdNP+n4AhW9rL/MU2Y5Dmzu43Cd9y2 11zog+JIxSKNHA5D+lpd1Si1s9c7N6259-5 12-21T21:31:00 Patient leaving AMA,discussed risks of leaving against medical advice, Dr. Maciel aware and notified of patient's decision.Patient encouraged to seek medical attention for any new/prolonged/worsening of symptoms and stressed importance of follow up with a medical provider as soon as possible. AMA form explained, patient signed form.IV d'cd, dressing to site.Patient leaving ambulatory with steady gait, appears in no distress. 25325-5Aaxjbcwwo department RlvrZJ8275-23-89K27:38:39[facility] NoteTXT1.2.840.439305.1.13.104.2.7. 2.467464|[id number] for patient ohdy51287-8GpigJKZHIZAZXBDGgueubxur C-CDA narrative [id number] Magaña RN[id number] 0SUOULSUNNEHDLMHZRIULMU6374-00-17N5 1:38:391.2.840.924819.1.72.3.15|1.2 .840.253860.1.13.104.2.7.2.727879_2 [id number] Mary Magaña RN [facility] 2023-12-21 21:30:00 5Pw6Kf+BtfL0VJO01amgzFhkFqGuQYPDwjw 1x3LR+agZPT2cP9YL54yBB/akIwmL1555-5 12-21T21:30:00 Pt wished to leave AMA. Pt states " yall were wonderful but 3am come real early." 90365-0Pbbjqxccl department XewzQM5862-82-67R58:36:58[facility] NoteTXT1.2.840.456537.1.13.104.2.7. 2.003588|[id number] for patient elvx22650-1FubkBSDXTBVHBFCJkxnnbpbe C-CDA narrative text[id number] 2ZSNMYVCWYUVECTFRGMLSKR5776-70-32E4 1:36:581.2.840.313245.1.72.3.15|1.2 .840.437939.1.13.104.2.7.2.727879_2 [id number] [facility] 2023-12-21 21:26:22 WPicgNcLybXzxmHN8k1NlZqZsSLXvljGcRR 7JPMxP6xKVs7ssl0RJhFE7e9NpNhx3027-1 12-21T21:26:22 Pt asking to go outside and smoke, wants to go home and eat. Pt educated on risks of leaving AMA. Provider informed pt is in pain. 34335-7Qsqamdpey department EjieHE2150-43-71X70:33:35Emergency department NoteTXT1.2.840.639188.1.13.104.2.7. 2.507991|[id number] for patient mxwz63246-4OxomJLVHDFOTVNDIovivjlwh C-CDA narrative [id number] R Shehadeh RN[address]Gv[id number] 5FPEWTHMUDLLKAWNVDXBNUM4912-51-20I2 1:33:351.2.840.612084.1.72.3.15|1.2 .840.243991.1.13.104.2.7.2.727879_2 [id number] Leah King RN [facility] 2023-12-21 19:31:50 7ux9+8qlHPy4VsztO3nUP6gHGwIHo0zEkvk GfOBlcG2rhRsDj9mTrCFe2nh+ZLkS6588-8 12-21T19:31:50 Pt arrived ambulatory with complaints of bright red rectal bleeding and generalized abdominal pain this afternoon. Pt states his stool was normal consistency but continuous bright red blood. Denies this happening before.Pt is an alcoholic, had 2 beer PLANNER. States he vomits all the time but not something new today. 83483-1Auoemkbfq department Triage weeuQW7242-39-65Y03:33:28[facility] Triage noteTXT1.2.840.529453.1.13.104.2.7. 2.959531|[id number] for patient lmdu94425-3Mhmzbtuod department NoteLNNARRATIVEFormatted C-CDA narrative [id number] D Roman RN[address] Pk[id number] 6WCDPORAUXKQDHDUFAOKRJW7302-26-67I8 9:33:281.2.840.065301.1.72.3.15|1.2 .840.222470.1.13.104.2.7.2.727879_2 [id number] Gabi Esqueda RN [facility] 2023-11-10 20:13:39 prDsgKUOBr7DwsDPQJc4DibU00u/TlPnCn4 [facility]/NN780eP8UWkZeIIm9txyNBrpO3994-3 11-10T20:13:39 Pt requesting to leave AMA. ERP notified. Pt counseled to remain, risks of leaving AMA including discussed with pt. Pt continued to decline further ER evaluation at this time. AMA papers signed, witnessed, and placed on patient's chart. Pt left ambulatory. VS stable, no ataxia noted, GCS 15, A&Ox4. 45174-4Fcpjaraxa department KvgtUJ2901-91-46A18:13:52[facility] department NoteTXT1.2.840.322777.1.13.104.2.7. 2.536477|[id number] for patient futr76744-2JuwcRPQTZADIEVKQtvhowayc C-CDA narrative [id number] Sarika Mitchell RN[id number] 0RHEAIPVXBJJFNNGSSMVBVR7444-68-32E8 0:13:521.2.840.272406.1.72.3.15|1.2 .840.708783.1.13.104.2.7.2.727879_1 [id number] Briseida Medrano RN [facility] 2023-11-10 19:30:29 o2Or5/LaO1j3S5uyt+7HHtdmVtxF/EYpEtf XFCMdgL9DTdC/ifFo58aNs4LE1n1n7006-8 11-10T19:30:29 Patient arrived to ED c/o SOB and COPD exacerbation. Symptoms started this morning. Patient wears 3L NC at home. Patient is a smoker. Patient states having the chills, diarrhea, and vomiting. States having sharp pains in chest from coughing. 82519-5Mpsnrwrpr department Triage tfgnOL6752-20-28O55:35:27[facility] Triage noteTXT1.2.840.091443.1.13.104.2.7. 2.582579|[id number] for patient whpu49997-6Mzuhpilmm department NoteLNNARRATIVEFormatted C-CDA narrative [id number]-Ysfzv McInnis RNUT[id number] 1RXFCDMHPBZRJALOSOADNZA3585-38-72M3 9:35:271.2.840.883430.1.72.3.15|1.2 .840.690873.1.13.104.2.7.2.727879_1 [id number] Sreedhar Gomez RN [facility]
[2024-02-04] MEDS ORDERED: METHYLPREDNISOLONE 125 MG INJ ONE (00:54)
[2024-02-04] MEDS ORDERED: LORazepam 2 MG/ML VIAL ONE (00:54)
[2024-02-04] MEDS ORDERED: ALBUTEROL 2.5 MG/3 ML NEB SOL ONE (00:54)
[2024-02-04] MEDS ORDERED: IPRATROPIUM BROM 0.5MG/2.5ML ONE (00:54)
[2024-02-04] MEDS ORDERED: THIAMINE 200 MG/2 ML INJ ONE (00:55)
[2024-02-04] MEDS ORDERED: FUROSEMIDE 20 MG/ 2ML VIAL ONE (00:55)
[2024-02-04 01:20] LABS: Arterial Blood Carboxyhemoglob 10.2 % (0-1.5); Blood Gas Oxyhemoglobin 84.9 % (94-97); Blood O2 Saturation 96.7 % (92-98.5)
[2024-02-04] MEDS ORDERED: KETOROLAC 30 MG/ML INJ ONE (01:23)
[2024-02-04 01:33] LABS: Absolute Basophils 0.1 K/uL (0-0.5); Absolute Eosinophils 0.1 K/uL (0-0.5); Absolute Lymphocytes (CBC) 3.3 K/uL (0.7-4.9); Absolute Monocytes 0.7 K/uL (0.1-1.3); Basophils % 1.3 % (0-1.3); Hematocrit 42.1 % (39.6-49.0); Hemoglobin 14.4 g/dL (13.6-17.9); Lymphocytes % 40.5 % (15.3-44.8); MCH 33.5 pg (27.0-35.0); MCHC 34.3 g/dL (32.0-36.0); MCV 97.5 fL (80-100); MPV 6.6 fL (7.6-11.3); Monocytes % 8.3 % (3.3-12.3); Neutrophils % 48.9 % (41.7-73.7); Platelets 274 thou/uL (152-406); RBC Red Blood Cell Count 4.31 M/uL (4.33-5.43); Red Cell Distribution Width 15.1 % (12.1-15.2)
[2024-02-04 01:56] LABS: ALT/SGPT 32 U/L (16-61); AST/SGOT 39 U/L (15-37); Albumin 3.9 g/dL (3.4-5.0); Albumin/Globulin Ratio 1.1 (1.1-1.8); Alkaline Phosphatase 72 U/L (45-117); Anion Gap 12.6 mEq/L (5.0-15.0); BUN Blood Urea Nitrogen 7 mg/dL (7-18); Bicarbonate 24 mEq/L (21-32); Bilirubin Total 0.3 mg/dL (0.2-1.0); Creatine Phosphokinase 57 U/L (39-308); Globulin 3.7 g/dL (2.3-3.5); Glomerular Filtration Rate 109 ml/min (=/>90); Glucose Level 82 mg/dL (74-106); Lipase 79 U/L (13-75); Magnesium 2.2 mg/dL (1.6-2.4); NT PRO-BNP 86 pg/mL (<125); Potassium 3.6 mEq/L (3.5-5.1); Protein, Total 7.6 g/dL (6.4-8.2); Sodium Level 134 mEq/L (136-145)
[2024-02-04 01:57] LABS: Bilirubin Direct < 0.1 mg/dL (0-0.2); Bilirubin Indirect, Calculated ND mg/dL (0.2-0.8)
[2024-02-04 01:58] LABS: PT Prothrombin Time 9.5 SECONDS (9.5-12.5); PTT, Activated Partial Thromb 31.9 SECONDS (24.3-36.9); Protime INR 0.86
--- NOTE | 2024-02-04 02:15 | ER ---
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 Pt reports that he cm10 is also having left leg pain. Pt also reports having productive cough. Pt reports, "I have been on a drinking binge for the last 2 weeks. I have had 24 beers today." Pt placed on 2L via during triage. Coronavirus screen: Client denies travel out of the [place] in the last 14 days. At this time, the client does not indicate any symptoms associated with coronavirus-19. Ebola Screen: Patient denies travel to an Ebola-affected area in the 21 days before illness onset. No symptoms or risks identified at this time. Initial Sepsis Screen: Does the patient meet any 2 criteria? RR > 20 per min. Does the patient have a suspected source of infection? No. Patient's initial sepsis screen is negative. Risk Assessment: Do you want to hurt yourself or someone else? Patient reports no desire to harm self or others. Onset of symptoms was February 04, 2024. 00:40 Method Of Arrival: Wheelchair cm10 00:40 Acuity: CANDACE 2 cm10 Triage Assessment: 00:42 General: Appears distressed, Behavior is cooperative. Pain: Complains of pain in left cm10 leg. Neuro: No deficits noted. Level of Consciousness is awake, alert, Oriented to person, place, time, situation. Historical: - Allergies: 00:42 Lisinopril; cm10 - PMHx: 00:42 Alcoholism; COPD; Hepatitis B (Hypertension); home 02 3LNC PRN; Hypertension; cm10 Osteoporosis; - PSHx: 00:42 Amputation of left index finger; cm10 - Immunization history:: Adult Immunizations up to date. - Social history:: Smoking status: Patient reports the use of cigarette tobacco products, smokes 1.5 packs per day, Patient uses alcohol, patient/guardian reports recent binge of alcohol consumption. 24 beers today. - Family history:: not pertinent. Screenin:37 [facility] ED Fall Risk Assessment (Adult) History of falling in the last 3 months, tm6 including since admission No falls in past 3 months (0 pts) Confusion or Disorientation No (0 pts) Intoxicated or Sedated Yes (3 pts) Impaired Gait No (0 pts) Mobility Assist Device Used No (0 pt) Altered Elimination No (0 pt) Score/Fall Risk Level 3 or more points = High Risk Oriented to surroundings, Maintained a safe environment. Abuse screen: Denies threats or abuse. Denies injuries from another. Nutritional screening: No deficits noted. Tuberculosis screening: No symptoms or risk factors identified. Assessment: 01:37 General: Appears distressed, Behavior is cooperative. Pain: Complains of pain in left tm6 leg Pain currently is 10 out of 10 on a pain scale. Pain began 2-3 days ago. Neuro: Level of Consciousness is awake, alert, obeys commands, Oriented to person, place, time, situation. Cardiovascular: Reports shortness of breath, Denies chest pain, Capillary refill < 3 seconds Patient's skin is warm and dry. Rhythm is sinus rhythm. Respiratory: Airway is patent Respiratory effort is even, labored, Respiratory pattern is symmetrical, Breath sounds are clear. GI: No signs and/or symptoms were reported involving the gastrointestinal system. Abdomen is round non-distended. : No signs and/or symptoms were reported regarding the genitourinary system. EENT: No signs and/or symptoms were reported regarding the EENT system. Derm: No signs and/or symptoms reported regarding the dermatologic system. Musculoskeletal: No signs and/or symptoms reported regarding the musculoskeletal system. 02:15 Reassessment: Patient appears in no apparent distress at this time. Patient and/or jb4 family updated on plan of care and expected duration. Pain level reassessed. Patient is alert, oriented x 3, equal unlabored respirations, skin warm/dry/pink. Provider at the bedside. Informed pt of results and pending discharge. Pt d/c'ed own IV. Asked pt to wait for D/c instructions. Pt states " I don't need paper work bud. " and ambulated out of ED to his ride waiting in the lobby. Patient states feeling better. Vital Signs: 00:40 BP 164 / 98; Pulse 66; Resp 24; Temp 98.3(O); Pulse Ox 98% on 2 lpm NC; Weight 79.38 cm10 kg; Height 5 ft. 4 in. ; Pain 10/10; 01:45 BP 157 / 91; Pulse 89; Resp 22; Pulse Ox 98% on R/A; jb4 00:40 Body Mass Index 30.04 (79.38 kg, 162.56 cm) cm10 00:40 Pain Scale: Adult cm10 [place] Coma Score: 00:39 Eye Response: spontaneous(4). Motor Response: obeys commands(6). Verbal Response: sp4 oriented(5). Total: 15. ED Course: 00:34 Patient arrived in ED. cm10 00:37 Jose Crews MD is Attending Physician. sp4 00:38 Leland Graf, RN is Primary Nurse. tm6 00:42 Triage completed. 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 00:43 Oxygen administration via nasal cannula \\T\\ 2L/min Response to oxygen therapy: symptoms cm10 improved. 00:50 Initial lab(s) drawn, by me, sent to lab. First set of blood cultures drawn by me. cm10 00:51 EKG done, by ED staff, reviewed by Jose Crews MD. tm6 00:57 Inserted saline lock: 18 gauge in left antecubital area, using aseptic technique. Blood cm10 collected. 00:58 BMP Sent. cm10 00:58 CBC with Diff Sent. cm10 00:58 CPK Sent. cm10 00:58 Hepatic Function Sent. cm10 00:58 Lipase Sent. cm10 00:58 Magnesium Sent. cm10 00:58 NT PRO-BNP Sent. cm10 00:58 PT-INR Sent. cm10 00:58 Ptt, Activated Sent. cm10 00:58 Troponin HS Sent. cm10 01:37 Patient has correct armband on for positive identification. Placed in gown. Bed in low tm6 position. Call light in reach. Side rails up X2. Provided Education on: plan of care. Client placed on continuous cardiac and pulse oximetry monitoring. NIBP monitoring applied. 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 Pulse ox on. NIBP on. Door closed. Noise minimized. Lights dimmed. 01:45 No provider procedures requiring assistance completed. jb4 02:18 IV discontinued, intact, bleeding controlled, No redness/swelling at site. Pressure jb4 dressing applied. Administered Medications: 01:00 Drug: Albuterol Inhalation 2.5 mg Inhalation every 20 minutes x3 Route: Inhalation; jb4 01:01 Drug: Albuterol Inhalation 2.5 mg Inhalation every 20 minutes x3 Route: Inhalation; jb4 01:01 Drug: Albuterol Inhalation 2.5 mg Inhalation every 20 minutes x3 {Note: instructed to jb4 give all 3 at once.} Route: Inhalation; 01:01 Drug: Ipratropium Inhalation 250 mcg Inhalation once {Note: provider verbally changed jb4 dose.} Route: Inhalation; 01:13 Drug: Furosemide IVP 20 mg IVP once; give over 2 minutes Route: IVP; Site: left tm6 antecubital; 01:13 Drug: MethylPrednisoLONE IVP 125 mg IVP once Route: IVP; Site: left antecubital; tm6 01:13 Drug: Ativan IVP 1 mg IVP once Route: IVP; Site: left antecubital; tm6 01:13 Drug: Thiamine IV 100 mg IV at bolus once Route: IV; Rate: bolus; Site: left tm6 antecubital; 01:28 Drug: Ketorolac IVP 30 mg IVP once Route: IVP; Site: left antecubital; vc1 Medication: 01:37 VIS not applicable for this client. tm6 Outcome: 02:15 Discharge ordered by . sp4 02:18 Discharged to home ambulatory, with family, jb4 02:18 Condition: stable 02:18 Discharge instructions given to Pt left prior to receiving instructions. 02:18 Patient left the ED. jb4 Signatures: Chivo Gill RN RN jb4 Piper Humphrey RN RN 1 Jose Crews MD MD sp4 Padmini Foster RN RN cm10 Leland Graf RN RN tm6 Corrections: (The following items were deleted from the chart) 02:18 01:45 IV discontinued, intact, bleeding controlled, No redness/swelling at site. jb4 Pressure dressing applied, jb4
--- NOTE | 2024-02-04 02:15 | EDPHYS ---
Physician Documentation [facility] Name: Randy Briones Age: 53 yrs Sex: Male : 1970 Arrival Date: 02/04/2024 Time: 00:32 Bed 4 Private MD: ED Physician Jose Crews HPI: 02/03 00:37 This 53 yrs old Male presents to ER via Unassigned with complaints of sp4 Shortness Of Breath. 00:38 53-year-old male with past medical history of COPD and tobacco use disorder presents sp4 with acute shortness of breath worsening throughout the day. Patient appears intoxicated on presentation. Historical: - Allergies: 00:42 Lisinopril; cm10 - PMHx: 00:42 Alcoholism; COPD; Hepatitis B (Hypertension); home 02 3LNC PRN; Hypertension; cm10 Osteoporosis; - PSHx: 00:42 Amputation of left index finger; cm10 - Immunization history:: Adult Immunizations up to date. - Social history:: Smoking status: Patient reports the use of cigarette tobacco products, smokes 1.5 packs per day, Patient uses alcohol, patient/guardian reports recent binge of alcohol consumption. 24 beers today. - Family history:: not pertinent. ROS: 00:39 Constitutional: Negative for fever, chills, and weight loss, positive dyspnea, positive sp4 wheezing, positive cough 00:39 All other systems are negative, Exam: 00:39 Constitutional: This is a well developed, well nourished patient who is awake, alert, sp4 and in mild respiratory distress, dyspnea and tachypnea. Head/Face: Normocephalic, atraumatic. Eyes: Pupils equal round and reactive to light, extra-ocular motions intact. Lids and lashes normal. Conjunctiva and sclera are not injected. Cornea within normal limits. Periorbital areas with no swelling, redness, or edema. ENT: Nares patent. No nasal discharge, no septal abnormalities noted. Tympanic membranes are normal and external auditory canals are clear. Oropharynx with no redness, swelling, or masses, exudates, or evidence of obstruction, uvula midline. Mucous membranes moist. Neck: Trachea midline, no thyromegaly or masses palpated, and no cervical lymphadenopathy. Supple, full range of motion without nuchal rigidity, or vertebral point tenderness. Chest/axilla: Normal chest wall appearance and motion. Nontender with no deformity. No lesions are appreciated. Cardiovascular: Regular rate and rhythm with a normal S1 and S2. No gallops, murmurs, or rubs. Normal PMI, no JVD. No pulse deficits. Respiratory: Lungs have equal breath sounds bilaterally, Positive dyspnea, tachypnea, positive wheezing on exam diffusely in all respiratory [place] Abdomen/GI: Soft, with normal bowel sounds. No distension or tympany. No guarding or rebound. No evidence of tenderness throughout. Back: No spinal tenderness. No costovertebral tenderness. Skin: Warm, dry with normal turgor. Normal color with no rashes, no lesions, and no evidence of cellulitis. MS/ Extremity: Pulses equal, no cyanosis. Neurovascular intact. Full, normal range of motion. Neuro: Awake and alert, GCS 15, oriented to person, place, time, and situation. Cranial nerves II-XII grossly intact. Motor strength 5/5 in all extremities. Sensory grossly intact. Psych: Awake, alert, with orientation to person, place and time. Behavior, mood, and affect are within normal limits 01:32 ECG was reviewed by the Attending Physician. 23:45 sp4 Vital Signs: 00:40 BP 164 / 98; Pulse 66; Resp 24; Temp 98.3(O); Pulse Ox 98% on 2 lpm NC; Weight 79.38 cm10 kg; Height 5 ft. 4 in. ; Pain 10/10; 01:45 BP 157 / 91; Pulse 89; Resp 22; Pulse Ox 98% on R/A; jb4 00:40 Body Mass Index 30.04 (79.38 kg, 162.56 cm) cm10 00:40 Pain Scale: Adult cm10 [place] Coma Score: 00:39 Eye Response: spontaneous(4). Motor Response: obeys commands(6). Verbal Response: sp4 oriented(5). Total: 15. MDM: 00:39 Patient medically screened. sp4 00:41 Differential diagnosis: Anxiety Reaction asthma, Bronchitis CHF exacerbation, Chronic sp4 Obstructive Pulmonary Disease pneumonia, Psychogenic pulmonary edema. Data reviewed: vital signs, nurses notes, lab test result(s), radiologic studies, plain films. 02:14 ED course: Patient with his IV out in the ER and desired to be released home. Patient sp4 is actually stable for discharge home. Will prescribe albuterol as needed. . 02/03 00:38 Order name: BMP; Complete Time: 02:12 02/03 00:38 Order name: Blood Culture Adult (2) 02/03 00:38 Order name: CBC with Diff; Complete Time: 01:41 02/03 00:38 Order name: CPK; Complete Time: 02:12 02/03 00:38 Order name: Hepatic Function; Complete Time: 02:12 02/03 00:38 Order name: Lipase; Complete Time: 02:12 02/03 00:38 Order name: Magnesium; Complete Time: 02:12 02/03 00:38 Order name: NT PRO-BNP; Complete Time: 02:12 02/03 00:38 Order name: PT-INR; Complete Time: 02:12 02/03 00:38 Order name: Ptt, Activated; Complete Time: 02:12 02/03 00:38 Order name: Troponin HS; Complete Time: 02:12 02/03 00:38 Order name: ABG; Complete Time: 01:41 02/03 00:38 Order name: Alcohol Level; Complete Time: 02:12 02/03 00:38 Order name: EKG; Complete Time: 00:38 02/03 00:38 Order name: Cardiac monitoring; Complete Time: 00:51 02/03 00:38 Order name: EKG - Nurse/Tech; Complete Time: 00:51 02/03 00:38 Order name: IV Saline Lock; Complete Time: 00:58 02/03 00:38 Order name: Labs collected and sent; Complete Time: 00:58 02/03 00:38 Order name: O2 Per Protocol; Complete Time: 00:51 02/03 00:38 Order name: O2 Sat Monitoring; Complete Time: 00: EC:32 Rate is 90 beats/min. Rhythm is regular, Normal Sinus Rhythm. QRS [place] is Normal. RI sp4 interval is normal. QRS interval is normal. QT interval is normal. No Q waves. T waves are Normal. No ST changes noted. Clinical impression: Normal ECG. Interpreted by me. Reviewed by me. Administered Medications: 01:00 Drug: Albuterol Inhalation 2.5 mg Inhalation every 20 minutes x3 Route: Inhalation; jb4 01:01 Drug: Albuterol Inhalation 2.5 mg Inhalation every 20 minutes x3 Route: Inhalation; jb4 01:01 Drug: Albuterol Inhalation 2.5 mg Inhalation every 20 minutes x3 {Note: instructed to jb4 give all 3 at once.} Route: Inhalation; 01: Drug: Ipratropium Inhalation 250 mcg Inhalation once {Note: provider verbally changed jb4 dose.} Route: Inhalation; 01:13 Drug: Furosemide IVP 20 mg IVP once; give over 2 minutes Route: IVP; Site: left tm6 antecubital; 01:13 Drug: MethylPrednisoLONE IVP 125 mg IVP once Route: IVP; Site: left antecubital; tm6 01:13 Drug: Ativan IVP 1 mg IVP once Route: IVP; Site: left antecubital; tm6 01:13 Drug: Thiamine IV 100 mg IV at bolus once Route: IV; Rate: bolus; Site: left tm6 antecubital; :28 Drug: Ketorolac IVP 30 mg IVP once Route: IVP; Site: left antecubital; vc1 Disposition Summary: 02/04/24 02:15 Discharge Ordered Notes: Location: Home sp4 Problem: new sp4 Symptoms: have improved sp4 Condition: Stable sp4 Diagnosis - Alcohol abuse with intoxication sp4 - Dyspnea sp4 - COPD/ Chronic obstructive pulmonary disease with (acute) exacerbation sp4 Followup: sp4 - With: Private Physician - When: 7 - 10 days - Reason: Recheck today's complaints Discharge Instructions: - Discharge Summary Sheet sp4 - Alcohol Intoxication, [id number] sp4 Forms: - Patient Portal Instructions sp4 Signatures: Dispatcher [employer] Chivo De Los Santos RN RN jb4 Piper Humphrey RN RN vc1 Jose Crews MD MD sp4 Padmini Foster RN RN cm10 Leland Graf RN RN tm6
[2024-02-04 02:27] VITALS: BP 157/91; TEMP 98.3; O2SAT 98
--- NOTE | 2024-02-05 11:55 | EKG ---
Test Date: 2024-02-03 Test Time: 23:45:07 Director Of Placement: TRUNG MEASUREMENT RESULTS: Intervals: Rate: 90 RI: 146 QRSD: 108 QT: 392 QTc: 479 [place]: P: 52 RI: 146 QRS: 89 T: 67 INTERPRETIVE STATEMENTS: Normal sinus rhythm Normal ECG Compared to ECG 12/28/2023 21:58:59 T-wave abnormality no longer present Electronically Signed On 02-05-24 11:50:13 CDT by Rosalino Albert
== END 2024-02-04 02:18 | disposition home or self-care (01) ==
LOC: ER 00:32
DX: J44.1 Chronic obstructive pulmonary disease with (acute) exacerbation (principal); F10.229 Alcohol dependence with intoxication, unspecified; I10 Essential (primary) hypertension; F17.210 Nicotine dependence, cigarettes, uncomplicated; Z88.8 Allergy status to other drugs, medicaments and biological substances
CPT/HCPCS: 93005; 87040 ×2; 85025; 80048; 36415; 83735; 82550; 85610; 80076; 85730; 84484; 83690; 83880; 82805; 96375; 96374; 99285; 82077; 36600; J3411; J1940; J7613; J7644; J2930

== ENCOUNTER 2024-02-07 00:04 | Emergency (ER) | payer OTHER ==
--- OUTSIDE RECORDS SUMMARY | 2024-02-07 00:10 | XMS REPORT | Continuity of Care Document ---
Author Name Unknown Address [address] [facility] [address] [place] [address] [facility] thconnect Address [address] [facility] 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 Name Role Phone JOHN GIRISHDELPHINEROMEO Primary Care Physician Unavailab JAC Haddad Attending Clinician Unavailable Jac Navarro MD Attending Clinician [phone] TYLER ROWE Attending Clinician Unavailab MELINDA Boothe Attending Clinician Unavailable Melinda Maciel DO Attending Clinician [phone] CHRISTY HOLLIDAY Attending Clinician Unavailable Christy Holliday MD Attending Clinician [phone] DARIEN LOBO Attending Clinician Unavailable MARIA ELENA CHAN MEDICAL Attending Hernandezia n Unavailable DENISE SUNG Attending Clinician Unavailable KARLEY ADAMS Attending Clinician Unavailable JAC NAVARRO Admitting Clinician Unavailable MELINDA MACIEL Admitting Clinician Unavailable CHRISTY HOLLIDAY Admitting Clinician Unavailable Payers Payer Name Policy Type Policy Number Effective Date Expirati on Date Source [facility] [id number] 2023 00:00:00 2024 00:00:00 [employer] [id number] 2023 00:00:00 [employer] 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: [place] [employer] 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 94 ON 9 [id number] 2023 00:00:00 Problems Condition Name Condition Details Condition Category Status Onset Date Resolution Date Last Treatment Date Treating Clinician Comments Source Acute exacerbati on of chronic obstructiv e pulmonary disease (COPD) Acute exacerbati on of chronic obstructiv e pulmonary disease (COPD) Disease Active 03-24 00:00: 00 [facility] Obesity (BMI 30-39.9) Obesity (BMI 30-39.9) Disease Active 03-24 00:00: 00 [facility] Allergies, Adverse Reactions, Alerts Allergy Name Allergy Type Status Severity Reaction(s) Onset Date Inactive Date Treating Clinician Comments Source Lisinopr il Propensi ty to adverse reaction s Active Anaphylaxis 03-24 00:00: 00 [facility] LISINOPR [place] DRUG INGREDI Active Anaphylaxis 03-24 00:00: 00 [facility] Social History Social Habit Start Date Stop Date Quantity Comments Source History of tobacco use Smokes tobacco daily [facility] Social function 2023-12-23 00:00:00 2023-12-23 00:00:00 [facility] Alcohol intake 2023-12-23 00:00:00 2023-12-23 00:00:00 4.29 /d [facility] Exposure to SARS-CoV-2 (event) 2022-10-04 00:00:00 2022-10-14 10:25:00 Not sure [facility] Tobacco use and exposure 2018-03-24 00:00:00 2018-03-24 00:00:00 User of smokeless tobacco [facility] Tobacco Comment 2018-03-24 00:00:00 2018-03-24 00:00:00 trying to quit [facility] Sex Ass[birth year] At 1970 00:00:00 1970 00:00:00 [facility] Smoking Status Start Date Stop Date Source Smokes tobacco daily 2018-03-24 00:00:00 [facility] Medications Ordered Medication Name Filled Medication Name Start Date Stop Date Current Medication? Ordering Clinician Indication Dosage Frequency Signature (SIG) Comments Components Source HYDROcodone -acetaminop hen (NORCO) 10-325 mg tablet 1 tablet 01-13 13:15: 00 01-13 12:15 :00 No 1{tbl} 1 tablet, Oral, ONCE, 1 dose, On [facility] 01/14/24 at 0715, [facility] ipratropium -albuteroL (DUONEB) 0.5 mg-3 mg(2.5 mg base)/3 mL nebulizer solution 3 mL 01-13 13:00: 00 01-13 11:53 :00 No 3mL 3 mL, Inhalation , ONCE NOW, 1 dose, On [facility] 01/14/24 at 0700, [facility] ondansetron (ZOFRAN (PF)) injection 4 mg 01-13 11:30: 00 01-13 11:37 :00 No 4mg 4 mg, Slow IV Push, ONCE, 1 dose, On [facility] 01/14/24 at 0530, [facility] morpHINE (4 mg/mL) injection 4 mg 01-13 11:30: 00 01-13 11:37 :00 No 4mg 4 mg, Slow IV Push, ONCE, 1 dose, On [facility] 01/14/24 at 0530, STAT [facility] azithromyci n (ZITHROMAX Z-PORTER) 250 mg tablet 01-13 00:00: 00 Yes [id number] Take 500 mg on day 1 then 250 mg on days 2-5 [facility] predniSONE 20 mg tablet 01-13 00:00: 00 Yes [id number] Take 1 po tid x 2 days, then take 1 po bid x 3 days, then take 1 po daily x 3 days. [facility] acetaminoph en-codeine 300-30 mg tablet 01-13 00:00: 00 01-21 04:59 :00 Yes [id number] 1{tbl} Take 1 tablet by mouth every 6 (six) hours as needed for Pain (scale 7-10) (severe cough) for up to 7 days. Indication s: acute pain, severe cough [facility] KCL (KLOR-CON M20) tablet 40 mEq 12-23 05:00: 00 12-23 05:07 :00 No 40meq 40 mEq, Oral, ONCE, 1 dose, On Thu12/22/23 at 2300, [facility] NaCl 0.9% (NS) bolus infusion 1,000 mL 12-23 05:00: 00 12-23 05:09 :00 No 1000mL at 999 mL/hr, 1,000 mL, IV Infusion, ONCE, 1 dose, On Thu12/22/23 at 2300, [facility] ondansetron (ZOFRAN (PF)) injection 4 mg 12-23 04:30: 00 12-23 04:24 :00 No 4mg 4 mg, Slow IV Push, ONCE, 1 dose, On Thu12/22/23 at 2230, [facility] maalox:diph enhydrAMINE :lidocaine 2 % viscous 1:1:1 ([facility]) oral suspension 15 mL 12-23 04:15: 00 12-23 04:17 :00 No 15mL 15 mL, Oral, ONCE, 1 dose, On Thu12/22/23 at 2215, Routine [facility] famotidine (PEPCID (PF)) injection 20 mg 12-23 04:15: 00 12-23 04:15 :00 No 20mg 20 mg, Slow IV Push, ONCE, 1 dose, On Thu12/22/23 at 2215, [facility] HYDROcodone -acetaminop hen (NORCO) 10-325 mg tablet 1 tablet 12-22 04:30: 00 12-22 16:29 :00 Yes 1{tbl} 1 tablet, Oral, ONCE, 1 dose, On Thu12/21/23 at 2230, Routine [facility] pantoprazol e (PROTONIX) 80 mg in NaCl 0.9% (NS) 20 mL syringe 12-22 04:15: 00 12-22 16:14 :00 Yes 80mg 80 mg, IV Push, ONCE, 1 dose, On Thu12/21/23 at 2215, Administer over 2 Minutes, 20 mL [facility] iopamidol (ISOVUE 370-500 mL) injection 100 mL 12-22 03:30: 00 12-22 03:30 :00 No [id number] 100mL 100 mL, Intravenou s, ONCE, 1 dose, On Thu12/21/23 at 2130, Routine [facility] morpHINE (4 mg/mL) injection 4 mg 12-22 03:30: 00 12-22 02:16 :00 No 4mg 4 mg, Slow IV Push, ONCE, 1 dose, On Thu12/21/23 at 2130, Routine [facility] ondansetron (ZOFRAN (PF)) injection 4 mg 12-22 02:45: 00 12-22 02:02 :00 No 4mg 4 mg, Slow IV Push, ONCE, 1 dose, On Thu12/21/23 at 2045, Routine [facility] ondansetron 4 mg disintegrat ing tablet 12-22 00:00: 00 Yes [id number] 4mg Take 1 tablet by mouth every 8 (eight) hours as needed for Nausea and Vomiting (N/V). [facility] hydrocortis one 25 mg suppository 12-22 00:00: 00 Yes [id number] 25mg Insert 1 Suppositor y into rectum 2 (two) times daily as needed for Rectal itching/pa in. [facility] ondansetron 4 mg disintegrat ing tablet 12-22 00:00: 00 Yes [id number] 4mg Take 1 tablet by mouth every 8 (eight) hours as needed for Nausea and Vomiting (N/V). [facility] hydrocortis one 25 mg suppository 12-22 00:00: 00 Yes [id number] 25mg Insert 1 Suppositor y into rectum 2 (two) times daily as needed for Rectal itching/pa in. [facility] amoxicillin -clavulanat e 875-125 mg per tablet 12-22 00:00: 00 01-02 05:59 :00 Yes [id number] 1{tbl} Take 1 tablet by mouth every 12 (twelve) hours for 10 days. [facility] methylpredn isolone sod succ (SOLU-MEDRO L) injection 125 mg 2022-11 08:45: 00 10-27 20:44 :00 No 125mg 125 mg, Slow IV Push, ONCE, 1 dose, On Thu10/27/23 at 0245, STAT [facility] ipratropium -albuteroL (DUONEB) 0.5 mg-3 mg(2.5 mg base)/3 mL nebulizer solution 3 mL 2022-11 08:45: 00 10-27 20:44 :00 No 3mL 3 mL, Inhalation , ONCE NOW, 1 dose, On Thu10/27/23 at 0245, LAURYN [facility] diazePAM (VALIUM) tablet 10 mg 2022-11 07:45: 00 10-27 19:44 :00 No 10mg 10 mg, Oral, ONCE, 1 dose, On Thu10/27/23 at 0145, LAURYN [facility] levoFLOXaci n (LEVAQUIN) tablet 500 mg 2022-11 07:45: 00 10-27 19:44 :00 No 500mg 500 mg, Oral, ONCE, 1 dose, On Thu10/27/23 at 0145, LAURYN
Re ason for Anti-Infec tive: Empiric Non-Surgic al Prophylaxi s
Durat ion of therapy: Once (ED) [facility] iopamidol (ISOVUE 370-500 mL) injection 70 mL 2021-11 18:30: 00 10-14 18:30 :00 No [id number] 70mL 70 mL, Intravenou s, ONCE, 1 dose, On Thu10/14/22 at 1230, Routine [facility] methylpredn isolone sod succ (SOLU-MEDRO L) injection 125 mg 2021-11 18:00: 00 Yes 125mg 125 mg, Intravenou s, Q6H, First dose on Thu10/14/22 at 1200, Until Discontinu ed, Routine [facility] furosemide (LASIX) injection 40 mg 2021-11 17:45: 00 10-14 16:39 :00 No 40mg 40 mg, IV Push, ONCE, 1 dose, On Thu10/14/22 at 1145, LAURYN [facility] ipratropium -albuteroL (DUONEB) 0.5 mg-3 mg(2.5 mg base)/3 mL nebulizer solution 3 mL 2021-11 17:30: 00 10-14 16:41 :00 No 3mL 3 mL, Inhalation , ONCE, 1 dose, On Thu10/14/22 at 1130, Routine [facility] FENTanyl PF (SUBLIMAZE (PF)) injection 50 mcg 2021-11 16:45: 00 10-14 16:39 :00 No 50ug 50 mcg, Slow IV Push, ONCE, 1 dose, On Thu10/14/22 at 1045, Routine [facility] levoFLOXaci n 750 mg tablet 2021-11 00:00: 00 Yes [id number] 750mg Take 1 tablet by mouth every 24 (twenty-fo ur) hours. [facility] levoFLOXaci n 750 mg tablet 2021-11 00:00: 00 Yes [id number] 750mg Take 1 tablet by mouth every 24 (twenty-fo ur) hours. [facility] levoFLOXaci n 750 mg tablet 2021-11 00:00: 00 Yes [id number] 750mg Take 1 tablet by mouth every 24 (twenty-fo ur) hours. [facility] levoFLOXaci n 750 mg tablet 2021-11 00:00: 00 Yes [id number] 750mg Take 1 tablet by mouth every 24 (twenty-fo ur) hours. [facility] levoFLOXaci n 750 mg tablet 2021-11 00:00: 00 Yes [id number] 750mg Take 1 tablet by mouth every 24 (twenty-fo ur) hours. [facility] levoFLOXaci n 750 mg tablet 2021-11 00:00: 00 Yes [id number] 750mg Take 1 tablet by mouth every 24 (twenty-fo ur) hours. [facility] HYDROcodone -acetaminop hen (NORCO) 10-325 mg tablet 1 tablet 03-12 12:15: 00 03-12 11:21 :00 No 1{tbl} 1 tablet, Oral, ONCE, 1 dose, On Thu03/12/22 at 0715, Routine [facility] HYDROcodone -acetaminop hen 10-325 mg tablet 03-12 00:00: 00 03-20 04:59 :00 No [id number] 1{tbl} Take 1 tablet by mouth every 6 (six) hours as needed for Pain (scale 7-10) for up to 7 days. Indication s: acute pain [facility] ipratropium -albuteroL (DUONEB) 0.5 mg-3 mg(2.5 mg base)/3 mL nebulizer solution 3 mL 02-20 13:00: 00 Yes 3mL 3 mL, Inhalation , QID, First dose on Thu02/20/22 at 0800, Until Discontinu ed, Routine [facility] methylPREDN ISolone sod succ (SOLU-MEDRO L (PF)) injection 40 mg 02-20 11:45: 00 02-20 10:43 :00 No 40mg 40 mg, Intravenou s, ONCE, 1 dose, On Thu02/20/22 at 0645, STAT [facility] foLIC acid (FOLATE) tablet 1 mg 02-20 11:45: 00 02-20 10:41 :00 No 1mg 1 mg, Oral, ONCE, 1 dose, On Thu02/20/22 at 0645, LAURYN [facility] thiamine (VITAMIN B1) injection 100 mg 02-20 11:45: 00 02-20 10:43 :00 No 100mg 100 mg, Intravenou s, ONCE, 1 dose, On Kym 02/20/22 at 0645, LAURYN [facility] LORazepam (ATIVAN) injection 2 mg 02-20 11:45: 00 02-20 10:42 :00 No 2mg 2 mg, Slow IV Push, ONCE, 1 dose, On Kym 02/20/22 at 0645, STAT [facility] ipratropium -albuteroL (DUONEB) 0.5 mg-3 mg(2.5 mg base)/3 mL nebulizer solution 3 mL 02-20 10:30: 00 02-20 09:34 :00 No 3mL 3 mL, Inhalation , ONCE, 1 dose, On [facility] 02/20/22 at 0530, Routine [facility] albuterol 90 mcg/actuati on inhaler 02-20 00:00: 00 Yes [id number] 2{puff} Inhale 2 Puffs every 4 (four) hours as needed for Wheezing or Shortness of Breath. [facility] albuterol 2.5 mg /3 mL (0.083 %) nebulizer solution 02-20 00:00: 00 Yes [id number] 2.5mg Inhale 3 mL every 4 (four) hours. May also nebulize one extra every 6 hours. [facility] budesonide- formoteroL 160-4.5 mcg/actuati on inhaler 02-20 00:00: 00 Yes [id number] 2{puff} Inhale 2 Puffs 2 (two) times daily. [facility] triamterene -hydrochlor othiazid 37.5-25 mg tablet 02-20 00:00: 00 Yes [id number] 1{tbl} Take 1 tablet by mouth daily. [facility] chlordiazeP OXIDE 25 mg capsule 02-20 00:00: 00 Yes [id number] 25mg Take 1 capsule by mouth every 6 (six) hours as needed for Anxiety, Agitation, Heart Rate => 100 or Detox. [facility] predniSONE 10 mg tablet 02-20 00:00: 00 Yes [id number] TAKE ONE TABLET BY MOUTH DAILY [facility] albuterol 90 mcg/actuati on inhaler 02-20 00:00: 00 Yes [id number] 2{puff} Inhale 2 Puffs every 4 (four) hours as needed for Wheezing or Shortness of Breath. [facility] albuterol 2.5 mg /3 mL (0.083 %) nebulizer solution 02-20 00:00: 00 Yes [id number] 2.5mg Inhale 3 mL every 4 (four) hours. May also nebulize one extra every 6 hours. [facility] budesonide- formoteroL 160-4.5 mcg/actuati on inhaler 02-20 00:00: 00 Yes [id number] 2{puff} Inhale 2 Puffs 2 (two) times daily. [facility] triamterene -hydrochlor othiazid 37.5-25 mg tablet 02-20 00:00: 00 Yes [id number] 1{tbl} Take 1 tablet by mouth daily. [facility] chlordiazeP OXIDE 25 mg capsule 02-20 00:00: 00 Yes [id number] 25mg Take 1 capsule by mouth every 6 (six) hours as needed for Anxiety, Agitation, Heart Rate => 100 or Detox. [facility] predniSONE 10 mg tablet 02-20 00:00: 00 Yes [id number] TAKE ONE TABLET BY MOUTH DAILY [facility] albuterol 90 mcg/actuati on inhaler 02-20 00:00: 00 Yes [id number] 2{puff} Inhale 2 Puffs every 4 (four) hours as needed for Wheezing or Shortness of Breath. [facility] albuterol 2.5 mg /3 mL (0.083 %) nebulizer solution 02-20 00:00: 00 Yes [id number] 2.5mg Inhale 3 mL every 4 (four) hours. May also nebulize one extra every 6 hours. [facility] budesonide- formoteroL 160-4.5 mcg/actuati on inhaler 02-20 00:00: 00 Yes [id number] 2{puff} Inhale 2 Puffs 2 (two) times daily. [facility] triamterene -hydrochlor othiazid 37.5-25 mg tablet 02-20 00:00: 00 Yes [id number] 1{tbl} Take 1 tablet by mouth daily. [facility] chlordiazeP OXIDE 25 mg capsule 02-20 00:00: 00 Yes [id number] 25mg Take 1 capsule by mouth every 6 (six) hours as needed for Anxiety, Agitation, Heart Rate => 100 or Detox. [facility] predniSONE 10 mg tablet 02-20 00:00: 00 Yes [id number] TAKE ONE TABLET BY MOUTH DAILY [facility] albuterol 90 mcg/actuati on inhaler 02-20 00:00: 00 Yes [id number] 2{puff} Inhale 2 Puffs every 4 (four) hours as needed for Wheezing or Shortness of Breath. [facility] albuterol 2.5 mg /3 mL (0.083 %) nebulizer solution 02-20 00:00: 00 Yes [id number] 2.5mg Inhale 3 mL every 4 (four) hours. May also nebulize one extra every 6 hours. [facility] budesonide- formoteroL 160-4.5 mcg/actuati on inhaler 02-20 00:00: 00 Yes [id number] 2{puff} Inhale 2 Puffs 2 (two) times daily. [facility] triamterene -hydrochlor othiazid 37.5-25 mg tablet 02-20 00:00: 00 Yes [id number] 1{tbl} Take 1 tablet by mouth daily. [facility] chlordiazeP OXIDE 25 mg capsule 02-20 00:00: 00 Yes [id number] 25mg Take 1 capsule by mouth every 6 (six) hours as needed for Anxiety, Agitation, Heart Rate => 100 or Detox. [facility] predniSONE 10 mg tablet 02-20 00:00: 00 Yes [id number] TAKE ONE TABLET BY MOUTH DAILY [facility] albuterol 90 mcg/actuati on inhaler 02-20 00:00: 00 Yes [id number] 2{puff} Inhale 2 Puffs every 4 (four) hours as needed for Wheezing or Shortness of Breath. [facility] albuterol 2.5 mg /3 mL (0.083 %) nebulizer solution 02-20 00:00: 00 Yes [id number] 2.5mg Inhale 3 mL every 4 (four) hours. May also nebulize one extra every 6 hours. [facility] budesonide- formoteroL 160-4.5 mcg/actuati on inhaler 02-20 00:00: 00 Yes [id number] 2{puff} Inhale 2 Puffs 2 (two) times daily. [facility] triamterene -hydrochlor othiazid 37.5-25 mg tablet 02-20 00:00: 00 Yes [id number] 1{tbl} Take 1 tablet by mouth daily. [facility] chlordiazeP OXIDE 25 mg capsule 02-20 00:00: 00 Yes [id number] 25mg Take 1 capsule by mouth every 6 (six) hours as needed for Anxiety, Agitation, Heart Rate => 100 or Detox. [facility] predniSONE 10 mg tablet 02-20 00:00: 00 Yes [id number] TAKE ONE TABLET BY MOUTH DAILY [facility] albuterol 90 mcg/actuati on inhaler 02-20 00:00: 00 Yes [id number] 2{puff} Inhale 2 Puffs every 4 (four) hours as needed for Wheezing or Shortness of Breath. [facility] albuterol 2.5 mg /3 mL (0.083 %) nebulizer solution 02-20 00:00: 00 Yes [id number] 2.5mg Inhale 3 mL every 4 (four) hours. May also nebulize one extra every 6 hours. [facility] budesonide- formoteroL 160-4.5 mcg/actuati on inhaler 02-20 00:00: 00 Yes [id number] 2{puff} Inhale 2 Puffs 2 (two) times daily. [facility] triamterene -hydrochlor othiazid 37.5-25 mg tablet 02-20 00:00: 00 Yes [id number] 1{tbl} Take 1 tablet by mouth daily. [facility] chlordiazeP OXIDE 25 mg capsule 02-20 00:00: 00 Yes [id number] 25mg Take 1 capsule by mouth every 6 (six) hours as needed for Anxiety, Agitation, Heart Rate => 100 or Detox. [facility] predniSONE 10 mg tablet 02-20 00:00: 00 Yes [id number] TAKE ONE TABLET BY MOUTH DAILY [facility] albuterol 90 mcg/actuati on inhaler 02-20 00:00: 00 Yes [id number] 2{puff} Inhale 2 Puffs every 4 (four) hours as needed for Wheezing or Shortness of Breath. [facility] albuterol 2.5 mg /3 mL (0.083 %) nebulizer solution 02-20 00:00: 00 Yes [id number] 2.5mg Inhale 3 mL every 4 (four) hours. May also nebulize one extra every 6 hours. [facility] budesonide- formoteroL 160-4.5 mcg/actuati on inhaler 02-20 00:00: 00 Yes [id number] 2{puff} Inhale 2 Puffs 2 (two) times daily. [facility] triamterene -hydrochlor othiazid 37.5-25 mg tablet 02-20 00:00: 00 Yes [id number] 1{tbl} Take 1 tablet by mouth daily. [facility] predniSONE 10 mg tablet 02-20 00:00: 00 Yes [id number] TAKE ONE TABLET BY MOUTH DAILY [facility] chlordiazeP OXIDE 25 mg capsule 02-20 00:00: 00 Yes [id number] 25mg Take 1 capsule by mouth every 6 (six) hours as needed for Anxiety, Agitation, Heart Rate => 100 or Detox. [facility] albuterol 90 mcg/actuati on inhaler 02-20 00:00: 00 Yes [id number] 2{puff} Inhale 2 Puffs every 4 (four) hours as needed for Wheezing or Shortness of Breath. [facility] albuterol 2.5 mg /3 mL (0.083 %) nebulizer solution 02-20 00:00: 00 Yes [id number] 2.5mg Inhale 3 mL every 4 (four) hours. May also nebulize one extra every 6 hours. [facility] budesonide- formoteroL 160-4.5 mcg/actuati on inhaler 02-20 00:00: 00 Yes [id number] 2{puff} Inhale 2 Puffs 2 (two) times daily. [facility] triamterene -hydrochlor othiazid 37.5-25 mg tablet 02-20 00:00: 00 Yes [id number] 1{tbl} Take 1 tablet by mouth daily. [facility] chlordiazeP OXIDE 25 mg capsule 02-20 00:00: 00 Yes [id number] 25mg Take 1 capsule by mouth every 6 (six) hours as needed for Anxiety, Agitation, Heart Rate => 100 or Detox. [facility] predniSONE 10 mg tablet 02-20 00:00: 00 Yes [id number] TAKE ONE TABLET BY MOUTH DAILY [facility] albuterol 5 mg/mL nebulizer solution 07-16 14:02: 20 Yes 2.5mg Inhale 2.5 mg every 6 (six) hours as needed for Wheezing or Shortness of Breath. [facility] albuterol 5 mg/mL nebulizer solution 07-16 14:02: 20 Yes 2.5mg Inhale 2.5 mg every 6 (six) hours as needed for Wheezing or Shortness of Breath. [facility] albuterol 5 mg/mL nebulizer solution 07-16 14:02: 20 Yes 2.5mg Inhale 2.5 mg every 6 (six) hours as needed for Wheezing or Shortness of Breath. [facility]/mL nebulizer solution 07-16 14:02: 20 Yes 2.5mg Inhale 2.5 mg every 6 (six) hours as needed for Wheezing or Shortness of Breath. [facility] albuterol 5 mg/mL nebulizer solution 07-16 14:02: 20 Yes 2.5mg Inhale 2.5 mg every 6 (six) hours as needed for Wheezing or Shortness of Breath. [facility] albuterol 5 mg/mL nebulizer solution 07-16 14:02: 20 Yes 2.5mg Inhale 2.5 mg every 6 (six) hours as needed for Wheezing or Shortness of Breath. [facility] albuterol 5 mg/mL nebulizer solution 07-16 14:02: 20 Yes 2.5mg Inhale 2.5 mg every 6 (six) hours as needed for Wheezing or Shortness of Breath. [facility] albuterol 5 mg/mL nebulizer solution 07-16 14:02: 20 Yes 2.5mg Inhale 2.5 mg every 6 (six) hours as needed for Wheezing or Shortness of Breath. [facility] budesonide- formoterol 160-4.5 mcg/actuati on inhaler 07-16 00:00: 00 Yes 2{puff} Inhale 2 Puffs 2 (two) times daily. [facility] albuterol 2.5 mg /3 mL (0.083 %) nebulizer solution 07-16 00:00: 00 Yes 2.5mg Inhale 3 mL every 4 (four) hours as needed for Wheezing or Shortness of Breath. [facility] budesonide- formoterol 160-4.5 mcg/actuati on inhaler 07-16 00:00: 00 Yes 2{puff} Inhale 2 Puffs 2 (two) times daily. [facility] albuterol 2.5 mg /3 mL (0.083 %) nebulizer solution 07-16 00:00: 00 Yes 2.5mg Inhale 3 mL every 4 (four) hours as needed for Wheezing or Shortness of Breath. [facility] budesonide- formoterol 160-4.5 mcg/actuati on inhaler 07-16 00:00: 00 Yes 2{puff} Inhale 2 Puffs 2 (two) times daily. [facility] albuterol 2.5 mg /3 mL (0.083 %) nebulizer solution 07-16 00:00: 00 Yes 2.5mg Inhale 3 mL every 4 (four) hours as needed for Wheezing or Shortness of Breath. [facility] budesonide- formoterol 160-4.5 mcg/actuati on inhaler 07-16 00:00: 00 Yes 2{puff} Inhale 2 Puffs 2 (two) times daily. [facility] albuterol 2.5 mg /3 mL (0.083 %) nebulizer solution 07-16 00:00: 00 Yes 2.5mg Inhale 3 mL every 4 (four) hours as needed for Wheezing or Shortness of Breath. [facility] budesonide- formoterol 160-4.5 mcg/actuati on inhaler 07-16 00:00: 00 Yes 2{puff} Inhale 2 Puffs 2 (two) times daily. [facility] albuterol 2.5 mg /3 mL (0.083 %) nebulizer solution 07-16 00:00: 00 Yes 2.5mg Inhale 3 mL every 4 (four) hours as needed for Wheezing or Shortness of Breath. [facility] budesonide- formoterol 160-4.5 mcg/actuati on inhaler 07-16 00:00: 00 Yes 2{puff} Inhale 2 Puffs 2 (two) times daily. [facility] albuterol 2.5 mg /3 mL (0.083 %) nebulizer solution 07-16 00:00: 00 Yes 2.5mg Inhale 3 mL every 4 (four) hours as needed for Wheezing or Shortness of Breath. [facility] budesonide- formoterol 160-4.5 mcg/actuati on inhaler 07-16 00:00: 00 Yes 2{puff} Inhale 2 Puffs 2 (two) times daily. [facility] albuterol 2.5 mg /3 mL (0.083 %) nebulizer solution 07-16 00:00: 00 Yes 2.5mg Inhale 3 mL every 4 (four) hours as needed for Wheezing or Shortness of Breath. [facility] budesonide- formoterol 160-4.5 mcg/actuati on inhaler 07-16 00:00: 00 Yes 2{puff} Inhale 2 Puffs 2 (two) times daily. [facility] albuterol 2.5 mg /3 mL (0.083 %) nebulizer solution 07-16 00:00: 00 Yes 2.5mg Inhale 3 mL every 4 (four) hours as needed for Wheezing or Shortness of Breath. [facility] triamterene -hydrochlor othiazide 37.5-25 mg per capsule 03-26 16:32: 14 Yes 1{capsu le} Take 1 capsule by mouth every morning. [facility] amLODIPine 10 mg tablet 03-26 16:32: 14 Yes 10mg Take 10 mg by mouth at bedtime. [facility] gabapentin 100 mg capsule 03-26 16:32: 14 Yes 100mg Take 100 mg by mouth 2 (two) times daily as needed ([facility] pain). [facility] foLIC acid 1 mg tablet 03-26 16:32: 14 Yes 1mg Take 1 mg by mouth daily. [facility] triamterene -hydrochlor othiazide 37.5-25 mg per capsule 03-26 16:32: 14 Yes 1{capsu le} Take 1 capsule by mouth every morning. [facility] amLODIPine 10 mg tablet 03-26 16:32: 14 Yes 10mg Take 10 mg by mouth at bedtime. [facility] gabapentin 100 mg capsule 03-26 16:32: 14 Yes 100mg Take 100 mg by mouth 2 (two) times daily as needed ([facility] pain). [facility] foLIC acid 1 mg tablet 03-26 16:32: 14 Yes 1mg Take 1 mg by mouth daily. [facility] triamterene -hydrochlor othiazide 37.5-25 mg per capsule 03-26 16:32: 14 Yes 1{capsu le} Take 1 capsule by mouth every morning. [facility] amLODIPine 10 mg tablet 03-26 16:32: 14 Yes 10mg Take 10 mg by mouth at bedtime. [facility] gabapentin 100 mg capsule 03-26 16:32: 14 Yes 100mg Take 100 mg by mouth 2 (two) times daily as needed ([facility] pain). [facility] foLIC acid 1 mg tablet 03-26 16:32: 14 Yes 1mg Take 1 mg by mouth daily. [facility] triamterene -hydrochlor othiazide 37.5-25 mg per capsule 03-26 16:32: 14 Yes 1{capsu le} Take 1 capsule by mouth every morning. [facility] amLODIPine 10 mg tablet 03-26 16:32: 14 Yes 10mg Take 10 mg by mouth at bedtime. [facility] gabapentin 100 mg capsule 03-26 16:32: 14 Yes 100mg Take 100 mg by mouth 2 (two) times daily as needed ([facility] pain). [facility] foLIC acid 1 mg tablet 03-26 16:32: 14 Yes 1mg Take 1 mg by mouth daily. [facility] triamterene -hydrochlor othiazide 37.5-25 mg per capsule 03-26 16:32: 14 Yes 1{capsu le} Take 1 capsule by mouth every morning. [facility] triamterene -hydrochlor othiazide 37.5-25 mg per capsule 03-26 16:32: 14 Yes 1{capsu le} Take 1 capsule by mouth every morning. [facility] amLODIPine 10 mg tablet 03-26 16:32: 14 Yes 10mg Take 10 mg by mouth at bedtime. [facility] amLODIPine 10 mg tablet 03-26 16:32: 14 Yes 10mg Take 10 mg by mouth at bedtime. [facility] gabapentin 100 mg capsule 03-26 16:32: 14 Yes 100mg Take 100 mg by mouth 2 (two) times daily as needed ([facility] pain). [facility] foLIC acid 1 mg tablet 03-26 16:32: 14 Yes 1mg Take 1 mg by mouth daily. [facility] gabapentin 100 mg capsule 03-26 16:32: 14 Yes 100mg Take 100 mg by mouth 2 (two) times daily as needed ([facility] pain). [facility] foLIC acid 1 mg tablet 03-26 16:32: 14 Yes 1mg Take 1 mg by mouth daily. [facility] triamterene -hydrochlor othiazide 37.5-25 mg per capsule 03-26 16:32: 14 Yes 1{capsu le} Take 1 capsule by mouth every morning. [facility] amLODIPine 10 mg tablet 03-26 16:32: 14 Yes 10mg Take 10 mg by mouth at bedtime. [facility] gabapentin 100 mg capsule 03-26 16:32: 14 Yes 100mg Take 100 mg by mouth 2 (two) times daily as needed ([facility] pain). [facility] foLIC acid 1 mg tablet 03-26 16:32: 14 Yes 1mg Take 1 mg by mouth daily. [facility] triamterene -hydrochlor othiazide 37.5-25 mg per capsule 03-26 16:32: 14 Yes 1{capsu le} Take 1 capsule by mouth every morning. [facility] amLODIPine 10 mg tablet 03-26 16:32: 14 Yes 10mg Take 10 mg by mouth at bedtime. [facility] gabapentin 100 mg capsule 03-26 16:32: 14 Yes 100mg Take 100 mg by mouth 2 (two) times daily as needed ([facility] pain). [facility] foLIC acid 1 mg tablet 03-26 16:32: 14 Yes 1mg Take 1 mg by mouth daily. [facility] budesonide- formoterol 160-4.5 mcg/actuati on inhaler 03-26 00:00: 00 Yes 2{puff} Inhale 2 Puffs 2 (two) times daily. [facility] budesonide- formoterol 160-4.5 mcg/actuati on inhaler 03-26 00:00: 00 Yes 2{puff} Inhale 2 Puffs 2 (two) times daily. [facility] budesonide- formoterol 160-4.5 mcg/actuati on inhaler 03-26 00:00: 00 Yes 2{puff} Inhale 2 Puffs 2 (two) times daily. [facility] budesonide- formoterol 160-4.5 mcg/actuati on inhaler 03-26 00:00: 00 Yes 2{puff} Inhale 2 Puffs 2 (two) times daily. [facility] budesonide- formoterol 160-4.5 mcg/actuati on inhaler 03-26 00:00: 00 Yes 2{puff} Inhale 2 Puffs 2 (two) times daily. [facility] budesonide- formoterol 160-4.5 mcg/actuati on inhaler 03-26 00:00: 00 Yes 2{puff} Inhale 2 Puffs 2 (two) times daily. [facility] budesonide- formoterol 160-4.5 mcg/actuati on inhaler 03-26 00:00: 00 Yes 2{puff} Inhale 2 Puffs 2 (two) times daily. [facility] budesonide- formoterol 160-4.5 mcg/actuati on inhaler 03-26 00:00: 00 Yes 2{puff} Inhale 2 Puffs 2 (two) times daily. [facility] Immunizations Ordered Immunization Name Filled Immunization Name Date Status Comments Source SARS-COV-2 COVID-19 PFIZER VACCINE 2021-02-03 00:00:00 Completed [facility] SARS-COV-2 COVID-19 PFIZER VACCINE 2021-02-03 00:00:00 Completed [facility] SARS-COV-2 COVID-19 PFIZER VACCINE 2021-02-03 00:00:00 Completed [facility] SARS-COV-2 COVID-19 PFIZER VACCINE 2021-01-13 00:00:00 Completed [facility] SARS-COV-2 COVID-19 PFIZER VACCINE 2021-01-13 00:00:00 Completed [facility] SARS-COV-2 COVID-19 PFIZER VACCINE 2021-01-13 00:00:00 Completed [facility] Pneumococcal Polysaccharide, PPSV23 (PNEUMOVAX) 2018-03-26 00:00:00 Completed [facility] Influenza Virus Vaccine Quad IM 3+ YRS 2018-03-26 00:00:00 Completed [facility] Pneumococcal Polysaccharide, PPSV23 (PNEUMOVAX) 2018-03-26 00:00:00 Completed [facility] Influenza Virus Vaccine Quad IM 3+ YRS 2018-03-26 00:00:00 Completed [facility] Pneumococcal Polysaccharide, PPSV23 (PNEUMOVAX) 2018-03-26 00:00:00 Completed [facility] Influenza Virus Vaccine Quad IM 3+ YRS 2018-03-26 00:00:00 Completed [facility] Pneumococcal Polysaccharide, PPSV23 (PNEUMOVAX) Unknown Completed [facility] Influenza Virus Vaccine Quad IM 3+ YRS Unknown Completed [facility] SARS-COV-2 COVID-19 PFIZER VACCINE Unknown Completed [facility] SARS-COV-2 COVID-19 PFIZER VACCINE Unknown Completed [facility] Pneumococcal Polysaccharide, PPSV23 (PNEUMOVAX) Unknown Completed [facility] Influenza Virus Vaccine Quad IM 3+ YRS Unknown Completed [facility] SARS-COV-2 COVID-19 PFIZER VACCINE Unknown Completed [facility] SARS-COV-2 COVID-19 PFIZER VACCINE Unknown Completed [facility] Pneumococcal Polysaccharide, PPSV23 (PNEUMOVAX) Unknown Completed [facility] Influenza Virus Vaccine Quad IM 3+ YRS Unknown Completed [facility] SARS-COV-2 COVID-19 PFIZER VACCINE Unknown Completed [facility] SARS-COV-2 COVID-19 PFIZER VACCINE Unknown Completed [facility] Pneumococcal Polysaccharide, PPSV23 (PNEUMOVAX) Unknown Completed [facility] Influenza Virus Vaccine Quad IM 3+ YRS Unknown Completed [facility] SARS-COV-2 COVID-19 PFIZER VACCINE Unknown Completed [facility] SARS-COV-2 COVID-19 PFIZER VACCINE Unknown Completed [facility] Pneumococcal Polysaccharide, PPSV23 (PNEUMOVAX) Unknown Completed [facility] Influenza Virus Vaccine Quad IM 3+ YRS Unknown Completed [facility] SARS-COV-2 COVID-19 PFIZER VACCINE Unknown Completed [facility] SARS-COV-2 COVID-19 PFIZER VACCINE Unknown Completed [facility] Vital Signs Vital Name Observation Time Observation Value Comments S ource Heart rate 2024-01-14 12:15:00 98 /min [facility] Body temperature 2024-01-14 12:15:00 36.56 Debbie [facility] Respiratory rate 2024-01-14 12:15:00 14 /min [facility] Oxygen saturation in Arterial blood by Pulse oximetry 2024-01-14 12:15:00 95 /min [facility] Systolic blood pressure 2024-01-14 12:00:00 140 mm[Hg] [facility] Diastolic blood pressure 2024-01-14 12:00:00 90 mm[Hg] [facility] Body height 2024-01-14 10:51:00 162.6 cm [facility] Body weight 2024-01-14 10:51:00 81.194 kg [facility] BMI 2024-01-14 10:51:00 30.73 kg/m2 [facility] Systolic blood pressure 2023-12-23 05:02:00 133 mm[Hg] [facility] Diastolic blood pressure 2023-12-23 05:02:00 84 mm[Hg] [facility] Heart rate 2023-12-23 05:02:00 78 /min [facility] Body temperature 2023-12-23 05:02:00 36.17 Debbie [facility] Respiratory rate 2023-12-23 05:02:00 17 /min [facility] Oxygen saturation in Arterial blood by Pulse oximetry 2023-12-23 05:02:00 91 /min [facility] Body height 2023-12-23 03:45:00 162.6 cm [facility] Body weight 2023-12-23 03:45:00 81.194 kg [facility] BMI 2023-12-23 03:45:00 30.73 kg/m2 [facility] Systolic blood pressure 2023-12-22 02:08:00 143 mm[Hg] [facility] Diastolic blood pressure 2023-12-22 02:08:00 92 mm[Hg] [facility] Heart rate 2023-12-22 02:08:00 81 /min [facility] Respiratory rate 2023-12-22 02:08:00 13 /min [facility] Oxygen saturation in Arterial blood by Pulse oximetry 2023-12-22 02:08:00 95 /min [facility] Body temperature 2023-12-22 01:33:00 36.72 Debbie [facility] Body height 2023-12-22 01:33:00 162.6 cm [facility] Body weight 2023-12-22 01:33:00 81.239 kg [facility] BMI 2023-12-22 01:33:00 30.74 kg/m2 [facility] Systolic blood pressure 2023-11-11 02:00:00 127 mm[Hg] [facility] Diastolic blood pressure 2023-11-11 02:00:00 87 mm[Hg] [facility] Heart rate 2023-11-11 02:00:00 79 /min [facility] Respiratory rate 2023-11-11 02:00:00 20 /min [facility] Oxygen saturation in Arterial blood by Pulse oximetry 2023-11-11 02:00:00 98 /min [facility] Body temperature 2023-11-11 01:31:00 36.28 Debbie [facility] Body height 2023-11-11 01:31:00 162.6 cm [facility] Body weight 2023-11-11 01:31:00 79.379 kg [facility] BMI 2023-11-11 01:31:00 30.04 kg/m2 [facility] Systolic blood pressure 2023-10-27 06:54:00 133 mm[Hg] [facility] Diastolic blood pressure 2023-10-27 06:54:00 94 mm[Hg] [facility] Heart rate 2023-10-27 06:54:00 95 /min [facility] Body temperature 2023-10-27 06:54:00 36.44 Debbie [facility] Respiratory rate 2023-10-27 06:54:00 22 /min [facility] Body height 2023-10-27 06:54:00 162.6 cm [facility] Body weight 2023-10-27 06:54:00 78.472 kg [facility] BMI 2023-10-27 06:54:00 29.70 kg/m2 [facility] Oxygen saturation in Arterial blood by Pulse oximetry 2023-10-27 06:54:00 94 /min [facility] Systolic blood pressure 2022-10-14 19:43:00 111 mm[Hg] [facility] Diastolic blood pressure 2022-10-14 19:43:00 74 mm[Hg] [facility] Heart rate 2022-10-14 19:43:00 98 /min [facility] Body temperature 2022-10-14 19:43:00 36.39 Debbie [facility] Respiratory rate 2022-10-14 19:43:00 22 /min [facility] Oxygen saturation in Arterial blood by Pulse oximetry 2022-10-14 19:43:00 94 /min [facility] Body height 2022-10-14 16:13:00 162.6 cm [facility] 2022-10-14 16:13:00 81.647 kg [facility] BMI 2022-10-14 16:13:00 30.90 kg/m2 [facility] Systolic blood pressure 2022-03-12 10:13:00 119 mm[Hg] [facility] Diastolic blood pressure 2022-03-12 10:13:00 75 mm[Hg] [facility] Heart rate 2022-03-12 10:13:00 105 /min [facility] Body temperature 2022-03-12 10:13:00 37.28 Debbie [facility] Respiratory rate 2022-03-12 10:13:00 19 /min [facility] Body height 2022-03-12 10:13:00 162.6 cm [facility] Body weight 2022-03-12 10:13:00 99.791 kg [facility] BMI 2022-03-12 10:13:00 37.76 kg/m2 [facility] Oxygen saturation in Arterial blood by Pulse oximetry 2022-03-12 10:13:00 96 /min [facility] Systolic blood pressure 2022-02-20 11:57:00 155 mm[Hg] [facility] Diastolic blood pressure 2022-02-20 11:57:00 88 mm[Hg] [facility] Heart rate 2022-02-20 11:57:00 105 /min [facility] Respiratory rate 2022-02-20 11:57:00 18 /min [facility] Oxygen saturation in Arterial blood by Pulse oximetry 2022-02-20 11:57:00 100 /min [facility] Body temperature 2022-02-20 09:25:00 37 Debbie [facility] Body height 2022-02-20 09:25:00 162.6 cm [facility] Body weight 2022-02-20 09:25:00 96.163 kg [facility] BMI 2022-02-20 09:25:00 36.39 kg/m2 [facility] Procedures Procedure Date / Time Performed Performing Clinician Source EKG-12 LEAD 2024-01-14 12:00:51 Jac Navarro [facility] 2024-01-14 11:11:00 Jac Navarro [facility] TROPONIN I 2024-01-14 11:11:00 Jac Navarro [facility] COMP. METABOLIC PANEL ([id number]) 2024-01-14 11:11:00 Jac Navarro [facility] ETHANOL 2024-01-14 11:11:00 Jac Navarro [facility] CBC WITH DIFF 2024-01-14 11:11:00 [facility] N-TERMINAL PRO-BNP 2024-01-14 11:11:00 Jac Navarro [facility] COVID-19 (ID NOW RAPID TESTING) 2024-01-14 11:11:00 Jac Navarro [facility] CONSENT/REFUSAL FOR DIAGNOSIS AND TREATMENT 2024-01-14 10:44:32 Doctor Unassigned, Regino Ramirez [facility] LIPASE 2023-12-23 04:17:00 Tyler Rowe [facility] COMP. METABOLIC PANEL ([id number]) 2023-12-23 04:17:00 Tyler Rowe [facility] CBC WITH DIFF 2023-12-23 04:17:[address] [facility] URINALYSIS 2023-12-23 04:17:00 Tyler Rowe [facility] CONSENT/REFUSAL FOR DIAGNOSIS AND TREATMENT 2023-12-23 03:40:32 Doctor Unassigned, Regino Ramirez [facility] CT ABDOMEN PELVIS W CONTRAST 2023-12-22 02:31:05 Melinda Maciel [facility] LIPASE 2023-12-22 01:58:00 Mel[facility] COMP. METABOLIC PANEL ([id number]) 2023-12-22 01:58:00 Melinda Maciel [facility] ETHANOL 2023-12-22 01:58:00 Melinda Maciel [facility] CBC WITH DIFF 2023-12-22 01:58:00 Melinda Maciel [facility] PROTHROMBIN TIME / INR 2023-12-22 01:58:00 Wali Maciel [facility] URINALYSIS 2023-12-22 01:58:00 Melinda Maciel [facility] CONSENT/REFUSAL FOR DIAGNOSIS AND TREATMENT 2023-12-22 01:19:14 Doctor Unassigned, Regino Ramirez [facility] NOTICE OF PRIVACY PRACTICES 2023-11-11 01:24:24 Doctor Unassigned, Regino Ramirez [facility] CONSENT/REFUSAL FOR DIAGNOSIS AND TREATMENT 2023-11-11 01:23:54 Doctor Unassigned, Regino Ramirez [facility] COVID-19 (ID NOW RAPID TESTING) 2023-10-27 07:09:00 Jac Navarro [facility] NOTICE OF PRIVACY PRACTICES 2023-10-27 06:49:48 Doctor Unassigned, Regino Ramirez [facility] CONSENT/REFUSAL FOR DIAGNOSIS AND TREATMENT 2023-10-27 06:47:40 Doctor Unassigned, Regino Ramirez [facility] CT ABDOMEN PELVIS W CONTRAST 2022-10-14 17:33:00 Melinda Maciel [facility] XR CHEST 1 VW 2022-10-14 17:10:37 Melinda Maciel [facility] TROPONIN I 2022-10-14 16:37:00 Melinda Maciel [facility] COMP. METABOLIC PANEL ([id number]) 2022-10-14 16:37:00 Melinda Maciel [facility] CBC WITH DIFF 2022-10-14 16:37:00 Melinda Maciel [facility] PROTHROMBIN TIME / INR 2022-10-14 16:37:00 Wali Maciel [facility] URINALYSIS 2022-10-14 16:37:00 Melinda Maciel [facility] N-TERMINAL PRO-BNP 2022-10-14 16:37[facility]REATMENT 2022-10-14 15:56:36 Doctor Unassigned, Regino Ramirez [facility] CONSENT/REFUSAL FOR DIAGNOSIS AND TREATMENT 2022-03-12 10:03:12 Doctor Unassigned, Regino Ramirez [facility] XR CHEST 1 VW 2022-02-20 09:59:00 Christy Holliday [facility] LIPASE 2022-02-20 09:30:00 Christy Holliday [facility] TROPONIN I 2022-02-20 09:30:00 Christy Holliday [facility] COMP. METABOLIC PANEL ([id number]) 2022-02-20 09:30:00 Christy Holliday [facility] CBC WITH DIFF 2022-02-20 09:30:00 Christy Holliday [facility] N-TERMINAL PRO-BNP 2022-02-20 09:30:00 Christy Holliday [facility] NOTICE OF PRIVACY PRACTICES 2022-02-20 09:15:02 Doctor Unassigned, Regino Ramirez [facility] CONSENT/REFUSAL FOR DIAGNOSIS AND TREATMENT 2022-02-20 09:14:47 Doctor Unassigned, Regino Ramirez [facility] Encounters Start Date/Time End Date/Time Encounter Type Admission Type Attending [facility] Facility Care Department Encounter ID Source 2024-01-14 04:46:00 2024-01-14 06:23:00 Emergency X JAC NAVARRO [facility] ERT [id number] [facility] 2024-01-14 04:46:00 2024-01-14 06:23:00 Emergency GracielaJac marlow J [facility] 1..840.114 350.1.13.10 4.2.7.2.686 [id number] [facility] 2023-12-22 21:51:00 2023-12-22 23:13:00 Emergency X ADEMIOLIBIAMONROETYLER [facility] ERT [id number] [facility] 2023-12-22 21:51:00 2023-12-22 23:13:00 Emergency AderibiherberthTyler avendano [facility] 1..840.114 350.1.13.10 4.2.7.2.686 [id number] [facility] 2023-12-21 19:36:00 2023-12-21 21:52:00 Emergency X MELINDA MACIEL [facility] ERT [id number] [facility] 2023-12-21 19:36:00 2023-12-21 21:52:00 Emergency Melinda Maciel [facility] 1.2.840.114 350.1.13.10 4.2.7.2.686 [id number] [facility] 2023-11-10 19:29:00 2023-11-10 20:14:00 Emergency X CHRISTY HOLLIDAY [facility] ERT [id number] [facility] 2023-11-10 19:29:00 2023-11-10 20:14:00 Emergency Christy Holliday [facility] 1.2.840.114 350.1.13.10 4.2.7.2.686 [id number] [facility] 2023-10-27 00:49:00 2023-10-27 01:41:00 Emergency X JAC NAVARRO [facility] ERT [id number] [facility] 2023-10-27 00:49:00 2023-10-27 01:41:00 Emergency Jac Navarro [facility] 1.2.840.114 350.1.13.10 4.2.7.2.686 [id number] [facility] 2023-07-15 00:00:00 2023-07-15 00:00:00 Outpatient DARIEN LOBO [id number] Maria Elena Alcantara 2023-06-16 11:30:00 2023-06-16 11:30:00 Outpatient DARIEN LOBO [id number] Maria Elena Alcantara 2023-05-18 00:00:00 2023-05-18 00:00:00 Outpatient MARIA ELENA CHAN [id number] Maria Elena Alcantara 2022-10-14 10:07:00 2022-10-14 14:39:00 Emergency X MELINDA MACIEL [facility] ERT [id number] [facility] 2022-10-14 10:07:00 2022-10-14 14:39:00 Emergency Melinda Maciel [facility] 1.2.840.114 350.1.13.10 4.2.7.2.686 [id number] [facility] 2022-03-12 05:15:00 2022-03-12 06:41:00 Emergency X CHRISTY HOLLIDAY [facility] ERT [id number] [facility] 2022-03-12 05:15:00 2022-03-12 06:41:00 Emergency Christy Holliday [facility] 1.2.840.114 350.1.13.10 4.2.7.2.686 [id number] [facility] 2022-02-20 04:17:00 2022-02-20 07:16:00 Emergency X CHRISTY HOLLIDAY [facility] ERT [id number] [facility] 2022-02-20 04:17:00 2022-02-20 07:16:00 Emergency Christy Holliday [facility] 1.2.840.114 350.1.13.10 4.2.7.2.686 [id number] [facility] 2021-02-03 11:10:00 2021-02-03 11:10:00 Outpatient DENISE CAMPO [facility] [id number] [facility] 2021-01-13 11:20:00 2021-01-13 11:20:00 Outpatient [facility] [id number] [facility] 2020-11-10 08:20:00 2020-11-10 08:20:00 Outpatient KARLEY ESTRADA [facility] [id number] [facility] Results Test Description Test Time Test Comments Results Result Co mments [facility] Test Item Value Reference Range Interpretation Comme nts LIPASE (test code = 7596533372) 105 U/L 0-220 Lab Interpretation (test cod e = 04724-2) Normal [id number] 04:34:24* Test Item Value Reference Range Interpretation [...] 33.0 g/dL 31.2-35.0 RDW-SD (test code = 98029-8) 50.9 fL 38.5-51.6 RDW-CV (test code = 788-0) 13.7 % 12.1-15.4 PLT (test code = 777-3) 232 150-328 MPV (test code = 23694-9) 8.7 fL 9.8-13.0 L NRBC/100 WBC (test code = 8864676488) 0.0 0.0-10.0 NRBC x10^3 (test code = 6532501830) See_Comment [Automated messa ge] The system which generated this result transmitted reference range: 10*3/?L. The reference range was not used to interpret this result as normal/abnormal. GRAN MAT (NEUT) % (test code = 770-8) 58.8 % IMM GRAN % (test code = 3429429656) 0.90 % LYMPH % (test code = 736-9) 27.8 % MONO % (test code = 5905-5) 10.5 % EOS % (test code = 713-8) 1.3 % BASO % (test code = 706-2) 0.7 % GRAN MAT x10^3(ANC) (test code = 5793129018) 5.68 10*3/uL 1.99-6.95 IMM GRAN x10^3 (test code = 5213508493) 0.09 10*3/uL 0.00-0.06 H LYMPH x10^3 (test code = 731-0) 2.69 10*3/uL 1.09-3.23 MONO x10^3 (test code = 742-7) 1.02 10*3/uL 0.36-1.02 EOS x10^3 (test code = 711-2) 0.13 10*3/uL 0.06-0.53 BASO x10^3 (test code = 704-7) 0.07 10*3/uL 0.01-0.09 Lab Interpretation (test code = 56275-3) [facility]normal [facility] WIJHBSAN1599-53-46 03:32:43Exam: CT Abdomen and Pelvis With Contrast, [...] acute osseous abnormality.Soft tissues: Small fat-containing inguinal hernias.[facility]anol2024-[facility] 02:32:24* Test Item Value Reference Range Interpretation Comme nts ALCOHOL (test code = 9485487990) 117 mg/dL LOUISE (test code = LOUISE) <10 Elruxega83-008 Toxic>100 Depression of AGENT PRODUCER>400 Fatalities Reported [facility] WestCom. Metabolic Panel (12718)2023-12-22 02:31:43* Test Item Value Reference Range Interpretation Comme nts NA (test code = 4176613456) 133 mmol/L 135-145 L K (test code = 6636464252) 3.3 mmol/L 3.5-5.0 L CL (test code = 4021992906) 102 mmol/L 98-108 CO2 TOTAL (test code = 8177716216) 25 mmol/L 23-31 AGAP (test code = 9669867226) 6 2-16 BUN (test code = 8702592721) 11 mg/dL 7-23 GLUCOSE (test code = 3402629682) 75 mg/dL 70-110 CREATININE (test code = 0097102607) 0.51 mg/dL 0.60-1.25 L TOTAL BILI (test code = 5002571812) 0.5 mg/dL 0.1-1.1 CALCIUM (test code = 8038474722) 8.9 mg/dL 8.6-10.6 T PROTEIN (test code = 0573653715) 7.2 g/dL 6.3-8.2 ALBUMIN (test code = 1494399854) 4.5 g/dL 3.5-5.0 ALK PHOS (test code = 4799583568) 46 U/L 34-122 ALTv (test code = 1742-6) 15 U/L 5-50 AST(SGOT) (test code = 2111431135) 24 U/L 13-40 eGFR (test code = 05839-1) 119.7 mL/min/1.73m2 CKD-EPI eGFR (2020). Assuming creatinine has been stable day-to-day for at least three months, the eGFR indicates Category G1 (>= 90 mL/min/1.73 m2) Lab Interpretation (test code = 57926-2) Abnormal [facility]Lipase2024-02-13 02:31:43* Test Item Value Reference Range Interpretation Comme nts LIPASE (test code = 5342682805) 121 U/L 0-220 Lab Interpretation (test cod e = 34719-5) Normal [facility] WestProthrombin Time / DKG9474-26-70 02:21:02* Test Item Value Reference Range Interpretation Comme nts PROTIME PATIENT (test code = 5964-2) 10.5 10.1-12.6 INR (test code = 6301-6) 0.9 Normal INR <1.1; Warfarin Therapeutic range 2.0 to 3.0 or 2.5 to 3.5, depending upon the indications. Lab Interpretation (test code = 91054-1) Normal [facility] WestCbc with Rkzz5434-21-27 02:14:04* Test Item Value Reference Range Interpretation [...] 34.0 g/dL 31.2-35.0 RDW-SD (test code = 98285-3) 49.1 fL 38.5-51.6 RDW-CV (test code = 788-0) 13.5 % 12.1-15.4 PLT (test code = 777-3) 260 150-328 MPV (test code = 63545-0) 8.7 fL 9.8-13.0 L NRBC/100 WBC (test code = 6547765145) 0.0 0.0-10.0 NRBC x10^3 (test code = 9083866738) See_Comment [Automated messa ge] The system which generated this result transmitted reference range: 10*3/?L. The reference range was not used to interpret this result as normal/abnormal. GRAN MAT (NEUT) % (test code = 770-8) 64.3 % IMM GRAN % (test code = 5796370310) 0.90 % LYMPH % (test code = 736-9) 24.2 % MONO % (test code = 5905-5) 9.1 % EOS % (test code = 713-8) 0.7 % BASO % (test code = 706-2) 0.8 % GRAN MAT x10^3(ANC) (test code = 6421688037) 8.73 10*3/uL 1.99-6.95 H IMM GRAN x10^3 (test code = 1589656255) 0.12 10*3/uL 0.00-0.06 H LYMPH x10^3 (test code = 731-0) 3.28 10*3/uL 1.09-3.23 H MONO x10^3 (test code = 742-7) 1.23 10*3/uL 0.36-1.02 H EOS x10^3 (test code = 711-2) 0.10 10*3/uL 0.06-0.53 BASO x10^3 (test code = 704-7) 0.11 10*3/uL 0.01-0.09 H Lab Interpretation (test code = 16487-3) Abnormal [facility] Q8509-92-06 10:16:22* Test Item Value Reference Range Interpretation Comments TROPONIN I (test code = 8550769235) 0.007 ng/mL See_Comment [Automated message] The system [...] of biotin. Lab Interpretation (test code = 50130-4) Normal [facility] WestN-TERMINAL PEZ-EWZ4778-72-14 10:13:01* Test Item Value Reference Range Interpretation Comme nts NT-proBNP (test code = 8320166710) 52 pg/mL See_Comment [Automated message] The system which generated this result transmitted reference range: <=125. The reference range was not used to interpret this result as normal/abnormal. LOUISE (test code = LOUISE) Biotin has been reported to cause a negative bias, interpret results relative to patient's use of biotin. Lab Interpretation (test code = 74441-3) Normal [facility] WestCOMP. METABOLIC PANEL (86890)2022-02-20 10:04:02* Test Item Value Reference Range Interpretation Comme nts NA (test code = 0003978281) 137 mmol/L 135-145 K (test code = 6926759514) 3.6 mmol/L 3.5-5.0 CL (test code = 3759949164) 99 mmol/L 98-108 CO2 TOTAL (test code = 5238888658) 25 mmol/L 23-31 AGAP (test code = 4456191857) 2-16 BUN (test code = 2295249963) 6 mg/dL 7-23 L GLUCOSE (test code = 1886959141) 88 mg/dL 70-110 CREATININE (test code = 7595779066) 0.55 mg/dL 0.60-1.25 L TOTAL BILI (test code = 4605680198) 0.8 mg/dL 0.1-1.1 CALCIUM (test code = 6185803212) 8.9 mg/dL 8.6-10.6 T PROTEIN (test code = 4814092566) 7.5 g/dL 6.3-8.2 ALBUMIN (test code = 5730162928) 4.8 g/dL 3.5-5.0 ALK PHOS (test code = 9654471834) 113 U/L 34-122 ALTv (test code = 1742-6) 84 U/L 5-50 H AST(SGOT) (test code = 2167239538) 107 U/L 13-40 H eGFR (test code = 6797338373) mL/min/1.73m2 LOUISE (test code = LOUISE) Association [...] imaging tests). Lab Interpretation (test code = 66299-1) Abnormal [facility] WestLIPASE, KSNCU3225-09-79 10:03:21* Test Item Value Reference Range Interpretation Comme nts LIPASE (test code = 2879871607) 193 U/L 0-220 Lab Interpretation (test cod e = 78497-9) Normal [facility] WestCB WITH DTVA9391-15-96 09:39:17* Test Item Value Reference Range Interpretation Comme nts WBC (test code = 6690-2) See_Comment [Automated [employer]] The system which generated this result transmitted [...] g/dL 31.2-35.0 H RDW-SD (test code = 21761-8) 44.4 fL 38.5-51.6 RDW-CV (test code = 788-0) 11.9 % 12.1-15.4 L PLT (test code = 777-3) See_Comment [Automated messa ge] The system which generated this result transmitted reference range: 150 - 328 10*3/?L. The reference range was not used to interpret this result as normal/abnormal. MPV (test code = 72717-5) 9.2 fL 9.8-13.0 L NRBC/100 WBC (test code = 1560660695) See_Comment [Automated [employer]] The system which generated this result transmitted reference range: 0.0 - 10.0 /100 WBCs. The reference range was not used to interpret this result as normal/abnormal. NRBC x10^3 (test code = 6989363037) <0.01 See_Comment [Automated messa ge] The system which generated this result transmitted reference range: 10*3/?L. The reference range was not used to interpret this result as normal/abnormal. GRAN MAT (NEUT) % (test code = 770-8) 69.9 % IMM GRAN % (test code = 8614124802) 1.50 % LYMPH % (test code = 736-9) 18.9 % MONO % (test code = 5905-5) 7.0 % EOS % (test code = 713-8) 1.9 % BASO % (test code = 706-2) 0.8 % GRAN MAT x10^3(ANC) (test code = 3342088649) 7.15 10*3/uL 1.99-6.95 H IMM GRAN x10^3 (test code = 9274395101) 0.15 10*3/uL 0.00-0.06 H LYMPH x10^3 (test code = 731-0) 1.93 10*3/uL 1.09-3.23 MONO x10^3 (test code = 742-7) 0.72 10*3/uL 0.36-1.02 EOS x10^3 (test code = 711-2) 0.19 10*3/uL 0.06-0.53 BASO x10^3 (test code = 704-7) 0.08 10*3/uL 0.01-0.09 Lab Interpretation (test code = 43375-8) Abnormal [facility] Notes Date/Time Note Provider Source 2024-01-14 06:16:25 2Odc6SsxYw4Uo5p5iaPYQtc4Kf5N/FhSiR0 ZD0lRE5kpzvwMtl+mQoG5hYbnjzWx9314-8 3-07T06:16:25 Pt given printed and verbal discharge [...] w/d, pt leaving in no apparent distress, 60142-2Uuippgbvi department SxtjDI0903-77-20Y39:17:20[facility] NoteTXT1.2.840.988507.1.13.104.2.7. 2.779115|[id number] for patient frbi50715-5LmcnEFRQVOHQHADBqcnzoonn C-CDA narrative text[id number] 5ZLHGFAJDCIGBYENJIEJAQV8424-74-27W2 6:17:201.2.840.946036.1.72.3.15|1.2 .840.988876.1.13.104.2.7.2.727879_2 [id number] [facility] 2024-01-14 04:49:43 a8ZOqvhEQMdWf0i1ecJ9NVBjyj5Rc+E0JFo 0g6FR3dAx8glaOKdaAnpQq1esYgCu0507-7 04:49:43 CC: "My COPD is acting up [...] ext without difficulty, amb with steady gait 24850-2Eotemxafg department Triage mttcJV2424-25-69Y21:55:49[facility] Triage noteTXT1.2.840.268377.1.13.104.2.7. 2.613506|[id number] for patient uxce36591-4Iejzvvqhs department NoteLNNARRATIVEFormatted C-CDA narrative qqor241505648Xtjzbz R Shehadeh RNUT[address] [id number] 0IEJTAEHGDXALNMQPNCCTSW1669-59-67T6 4:55:491.2.840.332285.1.72.3.15|1.2 .840.212765.1.13.104.2.7.2.727879_2 [id number] Leah King RN [facility] - Health 2024-01-14 04:43:00 Yet23xunW7gkEUzIddKvp8m9JnVqcs2K1jy djsmrB+5kjh3TvwmynnXl01wUf7p/04:43:00Associated Order(s): EKG-12 Lead ROUTINE ONCEPre-Procedure Diagnose(s): Chest pain, unspecified typePost-Procedure Diagnose(s): Chest pain, unspecified type 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 METABOLIC PANEL (31270) - AbnormalResult Value Ref RangeNA 138 135 [...] 49 (*) 13 - 40 U/LeGFR 93.3 mL/min/1.59u7IEY WITH DIFF - AbnormalWBC 11.59 (*) 4.20 [...] 220 U/LCOVID-19 (ID NOW RAPID TESTING) - RuoissBBGS-ZmK-3 Rapid ID NOW Not Detected Not DetectedETHANOLALCOHOL 62 mg/dLEKG:If EKG completed, see Procedure Note.Orders and Treatments:Orders Placed This EncounterProcedures XR CHEST 1 VW TROPONIN I COMP. METABOLIC PANEL (78524) LIPASE, SERUM CBC WITH DIFF N-Terminal Pro-Bnp Ethanol COVID-19 (ID NOW TESTING) Lab Only COVID Interpretation O2 Per ProtocolOrders Placed This EncounterMedications morpHINE (4 mg/mL) injection 4 mg ondansetron (ZOFRAN (PF)) injection 4 mg ipratropium-albuteroL (DUONEB) 0.5 mg-3 mg(2.5 mg base)/3 mL nebulizer solution 3 mLFirst Provider Eval:ED EventsDate/Time Event User Ypwcrgiy32/07/24 0510 Medical Screening Begins JAC NAVARRO MD --01/14/24 0510 First Provider Evaluation JAC NAVARRO MD --ED COURSEDiagnosis/Impression as of 01/14/24 0605Chest pain, unspecified typeBronchitisProcedures:EKG-12 Lead ROUTINE ONCEDate/Time: 01/14/2024 5:24 AMPerformed by: Jac Navarro MDAuthorized by: Jac Navarro MDECG interpreted by ED Physician in the absence of a boiler riveter: yesPrevious ECG:Previous ECG: Compared to currentSimilarity: No [...] on fileFollow-up:Electronically signed by:Jac Navarro MD01/14/24 06 41055-0Zwzhwuxbk Emergency department IkhwNG0118-53-64K95:00:50Physician Emergency department NoteTXT1.2.840.929651.1.13.104.2.7. 2.255040|[id number] for patient mche66715-5Gjhrzpmhm department NoteLNNARRATIVEFormatted C-CDA narrative textUT[address] A[id number] 9ZYAYMHVZSGKTQTWTZNYBLD8271-44-54K4 6:00:501.2.840.125530.1.72.3.15|1.2 .840.077953.1.13.104.2.7.2.727879_2 [id number] [facility] 2023-12-22 23:12:16 OfR1+klMklLyuJ7YJxMY6cmKXcr5LkXYuD9 jQMjJjsnvDOBiJsKf41f9TsLkg9wR7044-0 12-22T23:12:16 Pt given printed and verbal discharge [...] with steady gait, in no apparent distress, 09985-9Oxlowmrix department IyfaHW9886-57-35T74:13:50Emergency department NoteTXT1.2.840.832876.1.13.104.2.7. 2.249990|[id number] for patient qlwx12919-3GbawKPFCWNSDPFKJhmojcyss C-CDA narrative [id number] BRADFORD[address] GzdaRdaqrxktiLxsllnuopWPDU738078396 0GWIHYBSUJKUXWNYPAZZNST8606-30-81Y3 3:13:501.2.840.436602.1.72.3.15|1.2 .840.335419.1.13.104.2.7.2.727879_2 [id number] Mary Magaña RN [facility] 2023-12-22 21:41:55 tQCvD1IvhS50AcZhmvhvdHWkPOSZNVgrIYe pKFKUEpuoikNmpLmbh1h+8+BPA9J87982-4 12-22T21:41:55 Pt arrives ambulatory to ED reporting bleeding with stools and 10/10 abdominal pain. States he was here last night but had to leave before receiving results d/t having to work. Says the pain became worse so he came back in. 55158-1Rzjultfkv department Triage pysmHB2477-18-25S24:48:52[facility] Triage noteTXT1.2.840.769070.1.13.104.2.7. 2.733649|[id number] for patient bazo17244-3Dyjpildgd department NoteLNNARRATIVEFormatted C-CDA narrative lfoq464737822Gkjces L Williams RNUT[address] Vtj[id number] 7XFFUHFCXJFJRAGGMDLFVSH1379-49-49I0 1:48:521.2.840.726676.1.72.3.15|1.2 .840.102709.1.13.104.2.7.2.727879_2 [id number] Leah Lizama RN [facility] 2023-12-21 21:31:00 Az7FfXxYU+g8OkK6kW/SL6R1Tiwa63Ag7w3 11zog+EVnMGYBM4V+zmn0Rw2i0y5P8678-4 12-21T21:31:00 Patient leaving AMA,discussed risks of leaving against medical advice, Dr. Maciel aware and notified of patient's decision.Patient encouraged to seek medical attention for any new/prolonged/worsening of symptoms and stressed importance of follow up with a medical provider as soon as possible. AMA form explained, patient signed form.IV d'cd, dressing to site.Patient leaving ambulatory with steady gait, appears in no distress. 64542-8Uhbdriqtn department KqibDP1470-07-39Z38:38:39[facility] NoteTXT1.2.840.754033.1.13.104.2.7. 2.522750|[id number] for patient skem84842-0EcmaYWORSCKPPRJRdrcfnrio C-CDA narrative pnjl960227244ImfesMary Magaña RN[id number] 1HRRKBBJOOSTWHRXJZYMSBR5479-33-92R2 1:38:391.2.840.696105.1.72.3.15|1.2 .840.213137.1.13.104.2.7.2.727879_2 [id number] Mary Magaña RN [facility] 2023-12-21 21:30:00 5Pw6Kf+UpgF1ELC39auleTjfRvLtYBHZpam 1x3LR+qqZVZ1jB3KM66cJS/ikPehJ1931-9 12-21T21:30:00 Pt wished to leave AMA. Pt states " yall were wonderful but 3am come real early." 05420-0Dfeptmlyd department CntvVO4207-17-90B40:36:58[facility] NoteTXT1.2.840.813354.1.13.104.2.7. 2.546933|[id number] for patient zxvh06453-0JmkpGQDIXLZPURERiupynukt C-CDA narrative text[id number] 8ASJGGPLNIMLHZQLNCILMKJ1078-53-30L3 1:36:581.2.840.469893.1.72.3.15|1.2 .840.344253.1.13.104.2.7.2.727879_2 [id number] [facility] 2023-12-21 21:26:22 DNnvxVwDunCpvfID5z8WnHzRnPKXgauGlFE 8TVAcU9oSJp5xga8UZrIM1r0KgSvo3578-4 12-21T21:26:22 Pt asking to go outside and smoke, wants to go home and eat. Pt educated on risks of leaving AMA. Provider informed pt is in pain. 36619-9Uzhjxmjol department TpxsPD5305-97-51N36:33:35Emergency department NoteTXT1.2.840.107044.1.13.104.2.7. 2.673313|[id number] for patient gqps95108-8BqboYMREBNWOPYKYfpkepaas C-CDA narrative usjn820479399Wtdbsy R Shehadeh RN[address] StreetJcgxB[id number] 0CVTGTUFLMWIXQIHQGIPEYL9983-33-03T8 1:33:351.2.840.101319.1.72.3.15|1.2 .840.917713.1.13.104.2.7.2.727879_2 [id number] Leah King RN [facility] 2023-12-21 19:31:50 7ux9+7frHTy2IdsqW2aHT0bEZuXYd8yMhau LhMLlyJ7tnQxNb6dTbRAd0yk+QPbO5164-5 12-21T19:31:50 Pt arrived ambulatory with complaints of bright red rectal bleeding and generalized abdominal pain this afternoon. Pt states his stool was normal consistency but continuous bright red blood. 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 States he vomits all the time but not something new today. 56509-4Nompdfsju department Triage vnhcEQ3706-75-11Y13:33:28[facility] Triage noteTXT1.2.840.602366.1.13.104.2.7. 2.419821|[id number] for patient keyo28246-5Ifvjzdwsz department NoteLNNARRATIVEFormatted C-CDA narrative qgqk547683187Gvnrxv D Roman RN[address] TeilHvqienypcRyksrjzykATSI830322471 5RGTARYAXGBEDVSIFNHWINO7112-92-19B5 9:33:281.2.840.929940.1.72.3.15|1.2 .840.152760.1.13.104.2.7.2.727879_2 [id number] Gabi Esqueda RN [facility] 2023-11-10 20:13:39 fvMotGGLGt4BfbREKKn4FlaU69s/TlPnCn4 [facility]/ZW531vH4GMhDyPYf8etmNDvdM8056-0 11-10T20:13:39 Pt requesting to leave AMA. ERP notified. Pt counseled to remain, risks of leaving AMA including discussed with pt. Pt continued to decline further ER evaluation at this time. AMA papers signed, witnessed, and placed on patient's chart. Pt left ambulatory. VS stable, no ataxia noted, GCS 15, A&Ox4. 37758-9Ekegrntmb department BksmBR4565-11-95E18:13:52[facility] department NoteTXT1.2.840.867716.1.13.104.2.7. 2.978757|[id number] for patient ixdf18500-5GbfaJYGZVNBFOKIHdfhovpcr C-CDA narrative corq545229165Gfskzg Sarika Mitchell RNUT[id number] 6WJRMVFGCATMYHNEZWMGBHX2852-14-64Q7 0:13:521.2.840.825966.1.72.3.15|1.2 .840.870559.1.13.104.2.7.2.727879_1 [id number] Briseida Medrano RN [facility] 2023-11-10 19:30:29 o2Or5/UxU7y6F2ihf+7HHtdmVtxF/EYpEtf VSVCeuU6RGcF/ynNs92jGm7KS9q7z5168-6 11-10T19:30:29 Patient arrived to ED c/o SOB and COPD exacerbation. Symptoms started this morning. Patient wears 3L NC at home. Patient is a smoker. Patient states having the chills, diarrhea, and vomiting. States having sharp pains in chest from coughing. 77743-0Rzwpbsyyp department Triage acctIY8933-01-07V92:35:27[facility] Triage noteTXT1.2.840.109682.1.13.104.2.7. 2.398614|[id number] for patient zpga68962-2Qpjgqmirh department NoteLNNARRATIVEFormatted C-CDA narrative mfkl713744820Zfkczn-Lvyoz McInnis RNUT[id number] 6YSSRNDBKILKYUTKYCLVSXL7379-31-05E5 9:35:271.2.840.494053.1.72.3.15|1.2 .840.522842.1.13.104.2.7.2.727879_1 [id number] Sreedhar Gomez RN [facility]
[2024-02-07] MEDS ORDERED: ONDANSETRON 4 MG/2 ML VIAL ONE (01:28)
[2024-02-07] MEDS ORDERED: METHYLPREDNISOLONE 125 MG INJ ONE (01:28)
[2024-02-07] MEDS ORDERED: LEVALBUTEROL 1.25 MG/3 ML NEB ONE (01:28)
[2024-02-07] MEDS ORDERED: IPRATROPIUM BROM 0.5MG/2.5ML ONE (01:28)
[2024-02-07] MEDS ORDERED: MORPHINE 4 MG/ML SYR ONE (01:29)
[2024-02-07] MEDS ORDERED: NA CHLORIDE 0.9% 1,000 ML ONE (01:29)
[2024-02-07] MEDS ORDERED: FAMOTIDINE 20 MG/2 ML VIAL IV ONE (01:29)
--- NOTE | 2024-02-07 01:35 | EDPHYS ---
Physician Documentation [facility] Name: Randy Briones Age: 53 yrs Sex: Male : 1970 Arrival Date: 02/07/2024 Time: 00:04 Bed IW10 Private MD: Bg Manriquez HPI: 02/06 01:26 This 53 yrs old Male presents to ER via Ambulatory with complaints of Hip akash Pain, COPD Exacerbation. 01:26 The patient or guardian reports decreased range of motion. The complaints affect the akash left leg. Modifying factors: The symptoms are alleviated by remaining still, the symptoms are aggravated by any movement. Associated signs and symptoms: Loss of consciousness: the patient experienced no loss of consciousness, Pertinent positives: headache, nausea, vomiting. Historical: - Allergies: 00:44 Lisinopril; jb4 - PMHx: 00:44 Alcoholism; COPD; Hepatitis B (Hypertension); home 02 3LNC PRN; Hypertension; jb4 Osteoporosis; - PSHx: 00:44 Amputation of left index finger; jb4 - Immunization history:: Adult Immunizations up to date. - Social history:: Smoking status: Patient reports the use of cigarette tobacco products, smokes 1.5 packs per day. - Family history:: not pertinent. ROS: 01:30 Constitutional: Negative for fever, chills, and weight loss, Eyes: Negative for injury, akash pain, redness, and discharge, ENT: Negative for injury, pain, and discharge, Neck: Negative for injury, pain, and swelling, Cardiovascular: Negative for chest pain, palpitations, and edema, Abdomen/GI: Negative for abdominal pain, nausea, vomiting, diarrhea, and constipation, Back: Negative for injury and pain, : Negative for injury, bleeding, discharge, and swelling, Skin: Negative for injury, rash, and discoloration, Neuro: Negative for headache, weakness, numbness, tingling, and seizure, Psych: Negative for depression, anxiety, suicide ideation, homicidal ideation, and hallucinations, Allergy/Immunology: Negative for hives, rash, and allergies, Endocrine: Negative for neck swelling, polydipsia, polyuria, polyphagia, and marked weight changes, Hematologic/Lymphatic: Negative for swollen nodes, abnormal bleeding, and unusual bruising, 01:30 Respiratory: Positive for cough, shortness of breath, wheezing, expiratory, Exam: 01:30 Constitutional: This is a well developed, well nourished patient who is awake, alert, akash and in no acute distress. Head/Face: Normocephalic, atraumatic. Eyes: Pupils equal round and reactive to light, extra-ocular motions intact. Lids and lashes normal. Conjunctiva and sclera are non-icteric and not injected. Cornea within normal limits. Periorbital areas with no swelling, redness, or edema. ENT: Nares patent. No nasal discharge, no septal abnormalities noted. Tympanic membranes are normal and external auditory canals are clear. Oropharynx with no redness, swelling, or masses, exudates, or evidence of obstruction, uvula midline. Mucous membranes moist. Neck: Trachea midline, no thyromegaly or masses palpated, and no cervical lymphadenopathy. Supple, full range of motion without nuchal rigidity, or vertebral point tenderness. No Meningismus. Chest/axilla: Normal chest wall appearance and motion. Nontender with no deformity. No lesions are appreciated. Cardiovascular: Regular rate and rhythm with a normal S1 and S2. No gallops, murmurs, or rubs. Normal PMI, no JVD. No pulse deficits. Abdomen/GI: Soft, non-tender, with normal bowel sounds. No distension or tympany. No guarding or rebound. No evidence of tenderness throughout. Back: No spinal tenderness. No costovertebral tenderness. Full range of motion. Male : Normal genitalia with no discharge or lesions. Skin: Warm, dry with normal turgor. Normal color with no rashes, no lesions, and no evidence of cellulitis. Neuro: Awake and alert, GCS 15, oriented to person, place, time, and situation. Cranial nerves II-XII grossly intact. Motor strength 5/5 in all extremities. Sensory grossly intact. Cerebellar exam normal. Normal gait. Psych: Awake, alert, with orientation to person, place and time. Behavior, mood, and affect are within normal limits. 01:30 Respiratory: mild respiratory distress is noted, Respirations: labored breathing, that is moderate, Breath sounds: decreased breath sounds, rhonchi, wheezing: expiratory Respiratory rate: 22 Vital Signs: 00:42 BP 153 / 91; Pulse 103; Resp 20; Temp 98.2(O); Pulse Ox 92% on R/A; Weight 79.38 kg jb4 (R); Height 5 ft. 4 in. (R); Pain 10; 00:42 Body Mass Index 30.04 (79.38 kg, 162.56 cm) jb4 00:42 Pain Scale: Adult jb4 MDM: 00:16 Patient medically screened. [facility] 01:32 Differential diagnosis: bursitis, arthritis, strain. Data reviewed: vital signs, nurses [facility] notes, lab test result(s), EKG, radiologic studies, plain films. Consideration of Admission/Observation Patient was admitted/placed on observation. Escalation of care including admission/observation considered. I considered the following discharge prescriptions or medication management in the emergency department Medications were administered in the Emergency Department. See MAR. Test considered but Not performed: CT: ct chest, ct lumbar. Historians other than the Patient: Spouse/Significant Other: well informed. Care significantly affected by the following chronic conditions: Hypertension, Chronic Obstructive Pulmonary Disease, Obesity, alcohol abuse. 02/06 01:20 Order name: Basic Metabolic Panel [facility] 02/06 01:20 Order name: CBC with Diff [facility] 02/06 01:20 Order name: LFT's [facility] 02/06 01:20 Order name: Magnesium [facility] 02/06 01:20 Order name: NT PRO-BNP [facility] 02/06 01:20 Order name: PT-INR [facility] 02/06 01:20 Order name: Troponin HS [facility] 02/06 01:20 Order name: XRAY Chest (1 view) [facility] 02/06 01:38 Order name: Hip Left 2 View XRAY [facility] 02/06 01:20 Order name: Cardiac monitoring; Complete Time: :43 [facility] 02/06 01:20 Order name: EKG - Nurse/Tech [facility] 02/06 01:20 Order name: IV Saline Lock; Complete Time: :44 [facility] 02/06 01:20 Order name: Labs collected and sent; Complete Time: [facility] 02/06 01:20 Order name: O2 Per Protocol; Complete Time: [facility] 02/06 01:20 Order name: O2 Sat Monitoring; Complete Time: 44 [facility] Administered Medications: 01:43 Drug: morphine IVP or IV 4 mg IVP once over 4 mins Route: IVP; Infused Over: 4 mins; rv Site: left upper arm; 01:43 Drug: Ondansetron IVP 4 mg IVP once; over 2 minutes Route: IVP; Site: left upper arm; rv 01:43 Drug: MethylPrednisoLONE IVP 125 mg IVP once Route: IVP; Site: left upper arm; rv 01:43 Drug: Levalbuterol Inhalation 3.75 mg Inhalation once Route: Inhalation; rv 01:43 Drug: Ipratropium Inhalation Aerosol 0.5 mg Inhalation once Route: Inhalation; rv 01:43 Drug: Famotidine IVP 20 mg IVP once; dilute with 10 mL 0.9% NaCl; give over 2 minutes rv Route: IVP; Site: left upper arm; 01:43 Drug: NS 0.9% IV 500 ml IV at bolus once Route: IV; Rate: bolus; Site: left upper arm; rv 01:43 Drug: NS 0.9% IV 1000 ml IV at 125 ml/hr continuous Route: IV; Rate: 125 ml/hr; Site: rv left upper arm; Disposition Summary: 02/07/24 01:35 Hospitalization Ordered Notes: Hospitalization Status: Inpatient Admission akash Provider: Satnam Martin cha Location: Telemetry/MedSurg (Inpatient) akash Condition: Fair akash Problem: new akash Symptoms: have improved akash Bed/Room Type: Standard akash Room Assignment: akash Diagnosis - COPD/ Chronic obstructive pulmonary disease with (acute) exacerbation akash - Obesity, unspecified akash - Tobacco abuse counseling akash - Tobacco use akash - Pain in left hip akash - Sciatica, left side akash Forms: - Medication Reconciliation Form akash - SBAR form akash - Leadership Thank You Letter akash Signatures: Dispatcher [employer] EDBg Hooper MD MD cha Bryson, James, RN RN jb4 Darrius Nayak RN RN rv Corrections: (The following items were deleted from the chart) 01:20 01:20 BASIC METABOLIC PANEL+C.LAB.BRZ ordered. EDMS EDMS 01:20 01:20 CBC+H.LAB.BRZ ordered. EDMS EDMS 01:20 01:20 HEPATIC FUNCTION+C.LAB.BRZ ordered. EDMS EDMS 01:20 01:20 MAGNESIUM+C.LAB.BRZ ordered. EDMS EDMS 01:20 01:20 PROBNP+C.LAB.BRZ ordered. EDMS EDMS 01:20 01:20 PROTIME (+INR)+COAG.LAB.BRZ ordered. EDMS EDMS 01:20 01:20 Troponin High Sensitivity+C.LAB.BRZ ordered. EDID EDMS 01:26 Constitutional: Negative for fever, chills, and weight loss, Eyes: Negative for [facility] injury, pain, redness, and discharge, ENT: Negative for injury, pain, and discharge, Neck: Negative for injury, pain, and swelling, Cardiovascular: Negative for chest pain, palpitations, and edema, Respiratory: Negative for shortness of breath, cough, wheezing, and pleuritic chest pain, Back: Negative for injury and pain, : Negative for injury, bleeding, discharge, and swelling, MS/Extremity: Negative for injury and deformity, Skin: Negative for injury, rash, and discoloration, Psych: Negative for depression, anxiety, suicide ideation, homicidal ideation, and hallucinations, Allergy/Immunology: Negative for hives, rash, and allergies, Endocrine: Negative for neck swelling, polydipsia, polyuria, polyphagia, and marked weight changes, Hematologic/Lymphatic: Negative for swollen nodes, abnormal bleeding, and unusual bruising, [facility] 01:26 Abdomen/GI: Positive for abdominal pain, nausea and vomiting, [facility] 01:26 Neuro: Positive for headache, [facility]
--- NOTE | 2024-02-07 01:35 | ER ---
Nurse's Notes [facility] Name: Randy Briones Age: 53 yrs Sex: Male : 1970 Arrival Date: 02/07/2024 Time: 00:04 Bed IW10 Private MD: Diagnosis: COPD/ Chronic obstructive pulmonary disease with (acute) exacerbation;Obesity, unspecified;Tobacco abuse counseling;Tobacco use;Pain in left hip;Sciatica, left side Presentation: 02/06 00:42 Chief complaint: Patient states: I am having left hip pain that radiates up and down my jb4 left side. Pt was found walking outside smoking in font of the ER lobby entrance. Coronavirus screen: At this time, the client does not indicate any symptoms associated with coronavirus-19. Ebola Screen: No symptoms or risks identified at this time. Initial Sepsis Screen: Does the patient meet any 2 criteria? HR > 90 bpm. Yes Does the patient have a suspected source of infection? No. Patient's initial sepsis screen is negative. Risk Assessment: Do you want to hurt yourself or someone else? Patient reports no desire to harm self or others. Onset of symptoms was February 07, 2024. Transition of care: patient was not received from another setting of care. 00:42 Method Of Arrival: Ambulatory jb4 00:42 Acuity: CANDACE 3 jb4 Triage Assessment: 00:44 General: Appears in no apparent distress. comfortable, Behavior is calm, cooperative, jb4 appropriate for age. Pain: Complains of pain in left hip Pain radiates to back and left foot Pain currently is 10 out of 10 on a pain scale. Neuro: Level of Consciousness is awake, alert, obeys commands, Oriented to person, place, time, situation. Cardiovascular: Patient's skin is warm and dry. Respiratory: Airway is patent Respiratory effort is even, unlabored, Respiratory pattern is regular, symmetrical. GI: No signs and/or symptoms were reported involving the gastrointestinal system. : No signs and/or symptoms were reported regarding the genitourinary system. Derm: Skin is intact, Skin is pink, warm \T\ dry. Musculoskeletal: Circulation, motion, and sensation intact. Range of motion: intact in all extremities. Historical: - Allergies: 00:44 Lisinopril; jb4 - PMHx: 00:44 Alcoholism; COPD; Hepatitis B (Hypertension); home 02 3LNC PRN; Hypertension; jb4 Osteoporosis; - PSHx: 00:44 Amputation of left index finger; jb4 - Immunization history:: Adult Immunizations up to date. - Social history:: Smoking status: Patient reports the use of cigarette tobacco products, smokes 1.5 packs per day. - Family history:: not pertinent. Screenin:00 Abuse screen: Denies threats or abuse. Denies injuries from another. rv 01:00 [facility] ED Fall Risk Assessment (Adult) History of falling in the last 3 months, rv including since admission No falls in past 3 months (0 pts) Score/Fall Risk Level 0 - 2 = Low Risk Oriented to surroundings, Maintained a safe environment, Educated pt \T\ family on fall prevention, incl call for assistance when getting out of bed, Assessed \T\ reinforced patient's understanding of fall precautions. Nutritional screening: No deficits noted. Tuberculosis screening: No symptoms or risk factors identified. Assessment: 02:35 Reassessment: Patient pulled out IV and left ER, patient stated he was going home. pf1 Vital Signs: 00:42 BP 153 / 91; Pulse 103; Resp 20; Temp 98.2(O); Pulse Ox 92% on R/A; Weight 79.38 kg jb4 (R); Height 5 ft. 4 in. (R); Pain 10/10; 00:42 Body Mass Index 30.04 (79.38 kg, 162.56 cm) jb4 00:42 Pain Scale: Adult jb4 ED Course: 00:09 Patient arrived in ED. gm2 00:16 Bg Briones MD is Attending Physician. akash 00:43 Triage completed. jb4 00:44 Arm band placed on right wrist. jb4 01:00 Patient has correct armband on for positive identification. rv 01:34 Satnam Martin MD is Hospitalizing Provider. akash 01:44 Basic Metabolic Panel Sent. rv 01:44 CBC with Diff Sent. rv 01:44 LFT's Sent. rv 01:44 Magnesium Sent. rv 01:44 NT PRO-BNP Sent. rv 01:44 PT-INR Sent. rv 01:44 Troponin HS Sent. rv 02:06 XRAY Chest (1 view) In Process Unspecified. EDMS 02:06 Hip Left 2 View XRAY In Process Unspecified. EDMS 03:02 No provider procedures requiring assistance completed. Patient admitted, IV remains in rv place. Administered Medications: 01:43 Drug: morphine IVP or IV 4 mg IVP once over 4 mins Route: IVP; Infused Over: 4 mins; rv Site: left upper arm; 01:43 Drug: Ondansetron IVP 4 mg IVP once; over 2 minutes Route: IVP; Site: left upper arm; rv 01:43 Drug: MethylPrednisoLONE IVP 125 mg IVP once Route: IVP; Site: left upper arm; rv 01:43 Drug: Levalbuterol Inhalation 3.75 mg Inhalation once Route: Inhalation; rv 01:43 Drug: Ipratropium Inhalation Aerosol 0.5 mg Inhalation once Route: Inhalation; rv 01:43 Drug: Famotidine IVP 20 mg IVP once; dilute with 10 mL 0.9% NaCl; give over 2 minutes rv Route: IVP; Site: left upper arm; 01:43 Drug: NS 0.9% IV 500 ml IV at bolus once Route: IV; Rate: bolus; Site: left upper arm; rv 01:43 Drug: NS 0.9% IV 1000 ml IV at 125 ml/hr continuous Route: IV; Rate: 125 ml/hr; Site: rv left upper arm; Medication: 03:02 VIS not applicable for this client. rv Outcome: 01:35 Decision to Hospitalize by Provider. [facility] 03:02 Admitted to ER Hold. Please see [facility] for further documentation. rv 03:02 Condition: stable 03:02 Instructed on the need for admit, 03:05 Patient left the ED. rv Signatures: Dispatcher [employer] EDLA Bg Briones MD MD cha Bryson, James, RN RN jb4 Darrius Nayak RN RN Yary Billy RN RN pf1 Bonnie Sylvester 2
[2024-02-07 01:46] LABS: Absolute Basophils 0.2 K/uL (0-0.5); Absolute Monocytes 0.4 K/uL (0.1-1.3); Absolute Neutrophil 6.6 K/uL (1.8-8.0); Basophils % 1.4 % (0-1.3); Eosinophils % 0.4 % (0-4.4); Hematocrit 41.7 % (39.6-49.0); Hemoglobin 13.8 g/dL (13.6-17.9); Lymphocytes % 35.8 % (15.3-44.8); MCH 32.6 pg (27.0-35.0); MCV 98.8 fL (80-100); MPV 6.8 fL (7.6-11.3); Monocytes % 3.6 % (3.3-12.3); Neutrophils % 58.8 % (41.7-73.7); Platelets 223 thou/uL (152-406); RBC Red Blood Cell Count 4.22 M/uL (4.33-5.43); Red Cell Distribution Width 15.4 % (12.1-15.2)
[2024-02-07 01:50] LABS: PT Prothrombin Time 9.7 SECONDS (9.5-12.5); Protime INR 0.88
[2024-02-07 02:10] LABS: ALT/SGPT 38 U/L (16-61); Albumin 3.9 g/dL (3.4-5.0); Albumin/Globulin Ratio 1.1 (1.1-1.8); Alkaline Phosphatase 66 U/L (45-117); Anion Gap 14.8 mEq/L (5.0-15.0); BUN Blood Urea Nitrogen 10 mg/dL (7-18); Bicarbonate 25 mEq/L (21-32); Bilirubin Total 0.2 mg/dL (0.2-1.0); Globulin 3.7 g/dL (2.3-3.5); Glomerular Filtration Rate 103 ml/min (=/>90); Glucose Level 79 mg/dL (74-106); NT PRO-BNP 94 pg/mL (<125); Protein, Total 7.6 g/dL (6.4-8.2); Sodium Level 141 mEq/L (136-145); Troponin High Sensitivity 6.7 pg/mL (<58.9)
[2024-02-07 02:17] LABS: AST/SGOT 33 U/L (15-37); Bilirubin Direct < 0.1 mg/dL (0-0.2); Bilirubin Indirect, Calculated ND mg/dL (0.2-0.8); Potassium 3.8 mEq/L (3.5-5.1)
--- NOTE | 2024-02-07 03:07 | P.HP ---
Certification for Inpatient Patient admitted to: Observation With expected LOS: <2 Midnights Patient will require the following post-hospital care: None Practitioner: I am a practitioner with admitting privileges, knowledge of patient current condition, hospital course, and medical plan of care. Services: Services provided to patient in accordance with Admission requirements found in Title 42 Section 412.3 of the Code of Federal Regulations Patient History Date of Service: 02/07/24 Reason for admission: Left hip pain; shortness of breath History of Present Illness: Patient is a 53-year-old gentleman who presents to the emergency room with left hip pain. Patient has been taking BC powders for his left hip pain. He takes 6 packs of BC powder a day. Each pack is about 1 g of aspirin daily. He states that his pain has been hurting because of his chronic steroid use. He is on chronic steroids for his COPD. He continues to drink as well. His alcohol abuse has been a chronic issue. He tries to stop drinking but unfortunately he is never successful. He is going to rehab on numerous occasions. Patient is hoping he can be admitted to the hospital for further treatment of his alcohol abuse. He is also having significant left hip pain. Patient has been try to use BC powders to alleviate the symptoms. Patient's abdomen is slightly di stended. In the ER, patient's labs have come back unremarkable. Patient may need further imaging studies of his left hip and abdomen. Patient continues to follow-up with his lab[facility] [employer]. Patient will be admitted to the hospital for observation. Allergies lisinopril Allergy (Verified 04/26/22 13:11) Shortness of breath BC powder Allergy (Mild, Uncoded 04/26/22 13:10) Hives Lisinopril Allergy (Mild, Uncoded 04/26/22 13:10) Shortness of breath Home Medications: predniSONE [Prednisone*] 10 mg PO DAILY #30 tab 04/28/22 Budesonide/Formoterol Fumarate [Symbicort 160-4.5 Mcg Inhaler] 2 puff IH DAILY 06/23/23 Spironolactone [Aldactone*] 25 mg PO DAILY 06/23/23 Tiotropium Stanley [Spiriva] 2 puff IH DAILY 06/23/23 Amlodipine [Norvasc*] 10 mg PO DAILY #30 tab 12/02/23 Hydrocodone 10/APAP 325 [[place] 10/325*] 1 tab PO Q6H PRN #30 tab 12/02/23 Multivit,Ther Iron,Ca,FA & Min [Centrum Tablet*] 1 tab PO DAILY #30 tab 12/02/23 Sucralfate [Carafate -Tab] 1 gm PO ACHS #120 tab 12/02/23 chlordiazePOXIDE HCl [Chlordiazepoxide HCl] 10 mg PO QID #70 cap 12/02/23 - Past Medical/Surgical History Diabetic: No -: Hypertension -: COPD on chronic steroids/home O2 -: Tobacco abuse -: Alcohol abuse -: GERD -: Obesity -: BUD -: 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 - Family History Mother Medical History: Diabetes, Cancer Notes: colon cancer Father Medical History: Lung disease Notes: COPD - Social History Smoking Status: Current every day smoker Alcohol use: Yes CD- Drugs: No Caffeine use: Yes Review of Systems 10-point ROS is otherwise unremarkable Physical Examination - Vital Signs Temperature: 98 F Blood Pressure: 110/70 Pulse: 80 Respirations: 18 Pulse Ox (%): 95 - Physical Exam General: Alert, In no apparent distress, Oriented x3 HEENT: Atraumatic, PERRLA, Mucous membr. moist/pink, Other (Patient's face appears flushed), EOMI, Sclerae nonicteric Neck: Supple, 2+ carotid pulse no bruit, No LAD, Without JVD or thyroid abnormality Respiratory: Diminished, Expiratory wheezes Cardiovascular: Regular rate/rhythm, Normal S1 S2, No murmurs Gastrointestinal: Normal bowel sounds, Soft and benign, No rebound, No guarding, Distended, Tenderness Musculoskeletal: No clubbing, No swelling, No tenderness Integumentary: Other (Patient skin seems very flushed) Neurological: Normal gait, Normal speech, Normal strength at 5/5 x4 extr, Normal tone, Sensation intact, Cranial nerves 3-12 intact, Normal affect Lymphatics: No axilla or inguinal lymphadenopathy - Studies Laboratory Data (last 24 hrs) 02/07/24 02/07/24 02/07/24 01:35 01:35 01:35 WBC 11.30 H Hgb 13.8 Hct 41.7 Plt Count 223 PT 9.7 INR 0.88 Sodium 141 Potassium 3.8 BUN 10 Creatinine 0.83 Glucose 79 Magnesium 2.0 Total Bilirubin 0.2 AST 33 ALT 38 Alkaline Phosphatase 66 Assessment & Plan - Problems (Diagnosis) (1) Hip pain, left Status: Acute (2) Alcohol intoxication Status: Acute (3) COPD exacerbation Onset Date: 09/07/18 Status: Acute (4) Overdose of salicylate Status: Acute (5) Chronic respiratory failure with hypoxia Status: Acute (6) ETOH abuse Status: Acute (7) HTN (hypertension) Onset Date: 02/11/18 Status: Chronic Qualifiers: Hypertension type: primary hypertension Qualified Code(s): I10 - Essential (primary) hypertension (8) Tobacco abuse Onset Date: 02/11/18 Status: Chronic - Plan 1. Left hip pain; patient relates that chronic steroid use. Patient may have developed avascular necrosis. Patient will need left hip x-rays as well as outpatient MRI. Continue with pain control. Patient has been using BC powders. 1 packet of BC powders is equal to 1000 mg. Patient uses 6 packs of these daily. 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 Patient will need to be admitted and will need to check his levels. Patient needs to refrain from aspirin use. Counseled regarding use and abuse of salicylates. 2. History of alcohol abuse; counseled regarding cessation. Continue Librium. 3. History of COPD; acute COPD exacerbation; continue with nebs and antibiotics. Hold off on his steroids as he is having severe amount of pain. 4. History of hypertension; continue with antihypertensives 5. GI and DVT prophylaxis Discharge Plan: Home Plan to discharge in: 24 Hours - Advance Directives Does patient have a Living Will: No Does patient have a Durable POA for Healthcare: No - Code Status/Comfort Care Code Status Assessed: Yes Code Status: Full Code Critical Care: No Time Spent Managing PTS Care (In Minutes): 45
[2024-02-07 05:51] VITALS: BP 153/91; TEMP 98.2; O2SAT 92
--- NOTE | 2024-02-07 16:04 | RAD REPORT ---
EXAM DESCRIPTION: RAD - Hip Left 2 View - 02/07/2024 2:05 am CLINICAL HISTORY: 53 years, Male, PAIN COMPARISON: None FINDINGS: 2 X-ray views of the left hip (frontal view of the left hip and frogleg view of the left h ip) were obtained. No areas of acute bony injuries were demonstrated. No gross soft tissue abnormality is identified. There are no gross intraosseous lesions. No periosteal reaction were seen. There is minimal inc reased anterior sclerosis and spurring anterior superior aspect of the acetabulum. Otherwise the join t demonstrate to be within normal limits. No definitive displaced fracture are identified, if symptom s persist, clinical correlation and/or further evaluation with CT scan and/or MRI could be of assista nce. IMPRESSION: No acute bony injuries were demonstrated. Minimal osteoarthritis. Electronically signed by: Ezio Lester MD 02/07/2024 03:04 AM CDT Due to temporary technical issues with the PACS/Fluency reporting system, reports are being signed by the in house radiologists without review as a courtesy to insure prompt reporting. The interpreting radiologist is fully responsible for the content of the report
--- NOTE | 2024-02-07 16:07 | RAD REPORT ---
EXAM DESCRIPTION: RAD - Chest Single View - 02/07/2024 2:05 am CLINICAL HISTORY: Cough;COPD COMPARISON: 06/28/2023 FINDINGS: Cardiac silhouette is within normal limits. There is no focal parenchymal or pleural disea se. There is no acute osseous process visualized. IMPRESSION: No evidence of acute cardiopulmonary disease. Electronically signed by: Dao Barriga MD 02/07/2024 02:45 AM CDT Due to temporary technical issues with the PACS/Fluency reporting system, reports are being signed by the in house radiologists without review as a courtesy to insure prompt reporting. The interpreting radiologist is fully responsible for the content of the report
== END 2024-02-07 03:05 | disposition left against medical advice (07) ==
LOC: ER 00:04
DX: J44.1 Chronic obstructive pulmonary disease with (acute) exacerbation (principal); M54.32 Sciatica, left side; M25.552 Pain in left hip; E66.9 Obesity, unspecified; Z68.30 Body mass index [BMI] 30.0-30.9, adult; Z71.6 Tobacco abuse counseling; Z72.0 Tobacco use; F10.20 Alcohol dependence, uncomplicated; I10 Essential (primary) hypertension; Z99.81 Dependence on supplemental oxygen; Z88.8 Allergy status to other drugs, medicaments and biological substances
CPT/HCPCS: 85025; 80048; 36415; 83735; 85610; 80076; 84484; 83880; 71045; 73502; 96375; 96374; 99285; J7614; J7644; J2930; J2405; J7030

== ENCOUNTER 2024-02-07 16:39 | Emergency (ER) | payer OTHER ==
--- OUTSIDE RECORDS SUMMARY | 2024-02-07 16:46 | XMS REPORT | Continuity of Care Document ---
Author Name Unknown Address [address] [facility] [facility] [address] [place] [address] [facility] thconnect Address [address] [facility] [facility] [address] [place] [address] Care Team Providers Care Soundscriber Mechanic Name Role Phone JOHN GIRISHDELPHINEROMEO Primary Care Physician Unavailab JAC Haddad Attending Clinician Unavailable Jac Navarro MD Attending Clinician [phone] TYLER ROWE Attending Clinician Unavailab MELINDA Boothe Attending Clinician Unavailable Melinda Maciel DO Attending Clinician [phone] CHRISTY HOLLIDAY Attending Clinician Unavailable Christy Holliday MD Attending Clinician [phone] DARIEN LOBO Attending Clinician Unavailable MARIA ELENA [facility]AN [facility] Attending Hernandezia n Unavailable DENISE SUNG Attending Clinician Unavailable KARLEY ADAMS Attending Clinician Unavailable JAC NAVARRO Admitting Clinician Unavailable MELINDA MACIEL Admitting Clinician Unavailable CHRISTY HOLLIDAY Admitting Clinician Unavailable Payers Payer Name Policy Type Policy Number Effective Date Expirati on Date Source [facility] [id number] 2023 00:00:00 2024 00:00:00 [employer] [id number] 2023 00:00:00 [employer] 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 94 ON 9 [id number] 2023 00:00:00 Problems Condition Name Condition Details Condition Category Status Onset Date Resolution Date Last Treatment Date Treating Clinician Comments Source Acute exacerbati on of chronic obstructiv e pulmonary disease (COPD) Acute exacerbati on of chronic obstructiv e pulmonary disease (COPD) Disease Active 03-24 00:00: 00 [facility] Obesity (BMI 30-39.9) Obesity (BMI 30-39.9) Disease Active 03-24 00:00: 00 [facility] Allergies, Adverse Reactions, Alerts Allergy Name Allergy Type Status Severity Reaction(s) Onset Date Inactive Date Treating Clinician Comments Source Lisinopr il Propensi ty to adverse reaction s Active Anaphylaxis 03-24 00:00: 00 [facility] LISINOPR IL DRUG INGREDI Active Anaphylaxis 03-24 00:00: 00 [facility] Social History Social Habit Start Date Stop Date Quantity Comments Source History of tobacco use Smokes tobacco daily [facility] function 2023-12-23 00:00:00 2023-12-23 00:00:00 [facility] Alcohol intake 2023-12-23 00:00:00 2023-12-23 00:00:00 4.29 /d [facility] Exposure to SARS-CoV-2 (event) 2022-10-04 00:00:00 2022-10-14 10:25:00 Not sure [facility] Tobacco use and exposure 2018-03-24 00:00:00 2018-03-24 00:00:00 User of smokeless tobacco [facility] Tobacco Comment 2018-03-24 00:00:00 2018-03-24 00:00:00 trying to quit [facility] Sex Ass[birth year] At 1970 00:00:00 1970 00:00:00 [facility] Smoking Status Start Date Stop Date Source Smokes tobacco daily 2018-03-24 00:00:00 [facility] Medications Ordered Medication Name Filled Medication Name Start Date Stop Date Current Medication? Ordering Clinician Indication Dosage Frequency Signature (SIG) Comments Components Source HYDROcodone -acetaminop hen (NORCO) 10-325 mg tablet 1 tablet 01-13 13:15: 00 01-13 12:15 :00 No 1{tbl} 1 tablet, Oral, ONCE, 1 dose, On [facility] 01/14/24 at 0715, [facility] acute hospital ipratropium -albuteroL (DUONEB) 0.5 mg-3 mg(2.5 mg base)/3 mL nebulizer solution 3 mL 01-13 13:00: 00 01-13 11:53 :00 No 3mL 3 mL, Inhalation , ONCE NOW, 1 dose, On [facility] 01/14/24 at 0700, [facility] acute hospital ondansetron (ZOFRAN (PF)) injection 4 mg 01-13 11:30: 00 01-13 11:37 :00 No 4mg 4 mg, Slow IV Push, ONCE, 1 dose, On [facility] 01/14/24 at 0530, [facility] acute hospital morpHINE (4 mg/mL) injection 4 mg 01-13 11:30: 00 01-13 11:37 :00 No 4mg 4 mg, Slow IV Push, ONCE, 1 dose, On [facility] 01/14/24 at 0530, STAT [facility] azithromyci n (ZITHROMAX Z-PORTER) 250 mg tablet 01-13 00:00: 00 Yes [id number] Take 500 mg on day 1 then 250 mg on days 2-5 [facility] predniSONE 20 mg tablet 01-13 00:00: 00 Yes [id number] Take 1 po tid x 2 days, then take 1 po bid x 3 days, then take 1 po daily x 3 days. [facility] acetaminoph en-codeine 300-30 mg tablet 01-13 00:00: 00 01-21 04:59 :00 Yes [id number] 1{tbl} Take 1 tablet by mouth every 6 (six) hours as needed for Pain (scale 7-10) (severe cough) for up to 7 days. Indication s: acute pain, severe cough [facility] KCL (KLOR-CON M20) tablet 40 mEq 12-23 05:00: 00 12-23 05:07 :00 No 40meq 40 mEq, Oral, ONCE, 1 dose, On Thu12/22/23 at 2300, [facility] NaCl 0.9% (NS) bolus infusion 1,000 mL 12-23 05:00: 00 12-23 05:09 :00 No 1000mL at 999 mL/hr, 1,000 mL, IV Infusion, ONCE, 1 dose, On Thu12/22/23 at 2300, [facility] ondansetron (ZOFRAN (PF)) injection 4 mg 12-23 04:30: 00 12-23 04:24 :00 No 4mg 4 mg, Slow IV Push, ONCE, 1 dose, On Thu12/22/23 at 2230, [facility] acute [facility] maalox:diph enhydrAMINE :lidocaine 2 % viscous 1:1:1 ([facility]) oral suspension 15 mL 12-23 04:15: 00 12-23 04:17 :00 No 15mL 15 mL, Oral, ONCE, 1 dose, On Thu12/22/23 at 2215, Routine [facility] famotidine (PEPCID (PF)) injection 20 mg 12-23 04:15: 00 12-23 04:15 :00 No 20mg 20 mg, Slow IV Push, ONCE, 1 dose, On Thu12/22/23 at 2215, [facility] acute [facility] HYDROcodone -acetaminop hen (NORCO) 10-325 mg tablet 1 tablet 12-22 04:30: 00 12-22 16:29 :00 Yes 1{tbl} 1 tablet, Oral, ONCE, 1 dose, On Thu12/21/23 at 2230, [facility] pantoprazol e (PROTONIX) 80 mg in NaCl 0.9% (NS) 20 mL syringe 12-22 04:15: 00 12-22 16:14 :00 Yes 80mg 80 mg, IV Push, ONCE, 1 dose, On Thu12/21/23 at 2215, Administer over 2 Minutes, 20 mL [facility] iopamidol (ISOVUE 370-500 mL) injection 100 mL 12-22 03:30: 00 12-22 03:30 :00 No [id number] 100mL 100 mL, Intravenou s, ONCE, 1 dose, On Thu12/21/23 at 2130, Rout[facility] morpHINE (4 mg/mL) injection 4 mg 12-22 03:30: 00 12-22 02:16 :00 No 4mg 4 mg, Slow IV Push, ONCE, 1 dose, On Thu12/21/23 at 2130, Rout[facility] ondansetron (ZOFRAN (PF)) injection 4 mg 12-22 02:45: 00 12-22 02:02 :00 No 4mg 4 mg, Slow IV Push, ONCE, 1 dose, On Thu12/21/23 at 2045, [facility] ondansetron 4 mg disintegrat ing tablet 12-22 00:00: 00 Yes [id number] 4mg Take 1 tablet by mouth every 8 (eight) hours as needed for Nausea and Vomiting (N/V). [facility] hydrocortis one 25 mg suppository 12-22 00:00: 00 Yes [id number] 25mg Insert 1 Suppositor y into rectum 2 (two) times daily as needed for Rectal itching/pa in. [facility] ondansetron 4 mg disintegrat ing tablet 12-22 00:00: 00 Yes [id number] 4mg Take 1 tablet by mouth every 8 (eight) hours as needed for Nausea and Vomiting (N/V). [facility] hydrocortis one 25 mg suppository 12-22 00:00: 00 Yes [id number] 25mg Insert 1 Suppositor y into rectum 2 (two) times daily as needed for Rectal itching/pa in. [facility] amoxicillin -clavulanat e 875-125 mg per tablet 12-22 00:00: 00 01-02 05:59 :00 Yes [id number] 1{tbl} Take 1 tablet by mouth every 12 (twelve) hours for 10 days. [facility] methylpredn isolone sod succ (SOLU-MEDRO L) injection 125 mg 2022-11 08:45: 00 10-27 20:44 :00 No 125mg 125 mg, Slow IV Push, ONCE, 1 dose, On Thu10/27/23 at 0245, STAT [facility] ipratropium -albuteroL (DUONEB) 0.5 mg-3 mg(2.5 mg base)/3 mL nebulizer solution 3 mL 2022-11 08:45: 00 10-27 20:44 :00 No 3mL 3 mL, Inhalation , ONCE NOW, 1 dose, On Thu10/27/23 at 0245, [facility] diazePAM (VALIUM) tablet 10 mg 2022-11 07:45: 00 10-27 19:44 :00 No 10mg 10 mg, Oral, ONCE, 1 dose, On Thu10/27/23 at 0145, [facility] levoFLOXaci n (LEVAQUIN) tablet 500 mg 2022-11 07:45: 00 10-27 19:44 :00 No 500mg 500 mg, Oral, ONCE, 1 dose, On Thu10/27/23 at 0145, [facility]
Re ason for Anti-Infec tive: Empiric Non-Surgic al Prophylaxi s
Durat ion of therapy: Once (ED) [facility] iopamidol (ISOVUE 370-500 mL) injection 70 mL 2021-11 18:30: 00 10-14 18:30 :00 No [id number] 70mL 70 mL, Intravenou s, ONCE, 1 dose, On Thu10/14/22 at 1230, Rout[facility] methylpredn isolone sod succ (SOLU-MEDRO L) injection 125 mg 2021-11 18:00: 00 Yes 125mg 125 mg, Intravenou s, Q6H, First dose on Thu10/14/22 at 1200, Until Discontinu ed, Routine [facility] furosemide (LASIX) injection 40 mg 2021-11 17:45: 00 10-14 16:39 :00 No 40mg 40 mg, IV Push, ONCE, 1 dose, On Thu10/14/22 at 1145, [facility] ipratropium -albuteroL (DUONEB) 0.5 mg-3 mg(2.5 mg base)/3 mL nebulizer solution 3 mL 2021-11 17:30: 00 10-14 16:41 :00 No 3mL 3 mL, Inhalation , ONCE, 1 dose, On Thu10/14/22 at 1130, [facility] FENTanyl PF (SUBLIMAZE (PF)) injection 50 mcg 2021-11 16:45: 00 10-14 16:39 :00 No 50ug 50 mcg, Slow IV Push, ONCE, 1 dose, On Thu10/14/22 at 1045, Rout[facility] levoFLOXaci n 750 mg tablet 2021-11 00:00: 00 Yes [id number] 750mg Take 1 tablet by mouth every 24 (twenty-fo ur) hours. [facility] levoFLOXaci n 750 mg tablet 2021-11 00:00: 00 Yes [id number] 750mg Take 1 tablet by mouth every 24 (twenty-fo ur) hours. [facility] levoFLOXaci n 750 mg tablet 2021-11 00:00: 00 Yes [id number] 750mg Take 1 tablet by mouth every 24 (twenty-fo ur) hours. [facility] levoFLOXaci n 750 mg tablet 2021-11 00:00: 00 Yes [id number] 750mg Take 1 tablet by mouth every 24 (twenty-fo ur) hours. [facility] levoFLOXaci n 750 mg tablet 2021-11 00:00: 00 Yes [id number] 750mg Take 1 tablet by mouth every 24 (twenty-fo ur) hours. [facility] levoFLOXaci n 750 mg tablet 2021-11 00:00: 00 Yes [id number] 750mg Take 1 tablet by mouth every 24 (twenty-fo ur) hours. [facility] HYDROcodone -acetaminop hen (NORCO) 10-325 mg tablet 1 tablet 03-12 12:15: 00 03-12 11:21 :00 No 1{tbl} 1 tablet, Oral, ONCE, 1 dose, On Thu03/12/22 at 0715, Rout[facility] HYDROcodone -acetaminop hen 10-325 mg tablet 03-12 00:00: 00 03-20 04:59 :00 No [id number] 1{tbl} Take 1 tablet by mouth every 6 (six) hours as needed for Pain (scale 7-10) for up to 7 days. Indication s: acute pain [facility] ipratropium -albuteroL (DUONEB) 0.5 mg-3 mg(2.5 mg base)/3 mL nebulizer solution 3 mL 02-20 13:00: 00 Yes 3mL 3 mL, Inhalation , QID, First dose on Thu02/20/22 at 0800, Until Discontinu ed, Routine [facility] methylPREDN ISolone sod succ (SOLU-MEDRO L (PF)) injection 40 mg 02-20 11:45: 00 02-20 10:43 :00 No 40mg 40 mg, Intravenou s, ONCE, 1 dose, On Thu02/20/22 at 0645, STAT [facility] foLIC acid (FOLATE) tablet 1 mg 02-20 11:45: 00 02-20 10:41 :00 No 1mg 1 mg, Oral, ONCE, 1 dose, On Thu02/20/22 at 0645, [facility] thiamine (VITAMIN B1) injection 100 mg 02-20 11:45: 00 02-20 10:43 :00 No 100mg 100 mg, Intravenou s, ONCE, 1 dose, On Kym 02/20/22 at 0645, [facility] LORazepam (ATIVAN) injection 2 mg 02-20 11:45: 00 02-20 10:42 :00 No 2mg 2 mg, Slow IV Push, ONCE, 1 dose, On Kym 02/20/22 at 0645, STAT [facility] ipratropium -albuteroL (DUONEB) 0.5 mg-3 mg(2.5 mg base)/3 mL nebulizer solution 3 mL 02-20 10:30: 00 02-20 09:34 :00 No 3mL 3 mL, Inhalation , ONCE, 1 dose, On [facility] 02/20/22 at 0530, [facility] albuterol 90 mcg/actuati on inhaler 02-20 00:00: 00 Yes [id number] 2{puff} Inhale 2 Puffs every 4 (four) hours as needed for Wheezing or Shortness of Breath. [facility] albuterol 2.5 mg /3 mL (0.083 %) nebulizer solution 02-20 00:00: 00 Yes [id number] 2.5mg Inhale 3 mL every 4 (four) hours. May also nebulize one extra every 6 hours. [facility] budesonide- formoteroL 160-4.5 mcg/actuati on inhaler 02-20 00:00: 00 Yes [id number] 2{puff} Inhale 2 Puffs 2 (two) times daily. [facility] triamterene -hydrochlor othiazid 37.5-25 mg tablet 02-20 00:00: 00 Yes [id number] 1{tbl} Take 1 tablet by mouth daily. [facility] chlordiazeP OXIDE 25 mg capsule 02-20 00:00: 00 Yes [id number] 25mg Take 1 capsule by mouth every 6 (six) hours as needed for Anxiety, Agitation, Heart Rate => 100 or Detox. [facility] predniSONE 10 mg tablet 02-20 00:00: 00 Yes [id number] TAKE ONE TABLET BY MOUTH DAILY [facility] albuterol 90 mcg/actuati on inhaler 02-20 00:00: 00 Yes [id number] 2{puff} Inhale 2 Puffs every 4 (four) hours as needed for Wheezing or Shortness of Breath. [facility] albuterol 2.5 mg /3 mL (0.083 %) nebulizer solution 02-20 00:00: 00 Yes [id number] 2.5mg Inhale 3 mL every 4 (four) hours. May also nebulize one extra every 6 hours. [facility] budesonide- formoteroL 160-4.5 mcg/actuati on inhaler 02-20 00:00: 00 Yes [id number] 2{puff} Inhale 2 Puffs 2 (two) times daily. [facility] triamterene -hydrochlor othiazid 37.5-25 mg tablet 02-20 00:00: 00 Yes [id number] 1{tbl} Take 1 tablet by mouth daily. [facility] chlordiazeP OXIDE 25 mg capsule 02-20 00:00: 00 Yes [id number] 25mg Take 1 capsule by mouth every 6 (six) hours as needed for Anxiety, Agitation, Heart Rate => 100 or Detox. [facility] predniSONE 10 mg tablet 02-20 00:00: 00 Yes [id number] TAKE ONE TABLET BY MOUTH DAILY [facility] albuterol 90 mcg/actuati on inhaler 02-20 00:00: 00 Yes [id number] 2{puff} Inhale 2 Puffs every 4 (four) hours as needed for Wheezing or Shortness of Breath. [facility] albuterol 2.5 mg /3 mL (0.083 %) nebulizer solution 02-20 00:00: 00 Yes [id number] 2.5mg Inhale 3 mL every 4 (four) hours. May also nebulize one extra every 6 hours. [facility] budesonide- formoteroL 160-4.5 mcg/actuati on inhaler 02-20 00:00: 00 Yes [id number] 2{puff} Inhale 2 Puffs 2 (two) times daily. [facility] triamterene -hydrochlor othiazid 37.5-25 mg tablet 02-20 00:00: 00 Yes [id number] 1{tbl} Take 1 tablet by mouth daily. [facility] chlordiazeP OXIDE 25 mg capsule 02-20 00:00: 00 Yes [id number] 25mg Take 1 capsule by mouth every 6 (six) hours as needed for Anxiety, Agitation, Heart Rate => 100 or Detox. [facility] predniSONE 10 mg tablet 02-20 00:00: 00 Yes [id number] TAKE ONE TABLET BY MOUTH DAILY [facility] albuterol 90 mcg/actuati on inhaler 02-20 00:00: 00 Yes [id number] 2{puff} Inhale 2 Puffs every 4 (four) hours as needed for Wheezing or Shortness of Breath. [facility] albuterol 2.5 mg /3 mL (0.083 %) nebulizer solution 02-20 00:00: 00 Yes [id number] 2.5mg Inhale 3 mL every 4 (four) hours. May also nebulize one extra every 6 hours. [facility] budesonide- formoteroL 160-4.5 mcg/actuati on inhaler 02-20 00:00: 00 Yes [id number] 2{puff} Inhale 2 Puffs 2 (two) times daily. [facility] triamterene -hydrochlor othiazid 37.5-25 mg tablet 02-20 00:00: 00 Yes [id number] 1{tbl} Take 1 tablet by mouth daily. [facility] chlordiazeP OXIDE 25 mg capsule 02-20 00:00: 00 Yes [id number] 25mg Take 1 capsule by mouth every 6 (six) hours as needed for Anxiety, Agitation, Heart Rate => 100 or Detox. [facility] predniSONE 10 mg tablet 02-20 00:00: 00 Yes [id number] TAKE ONE TABLET BY MOUTH DAILY [facility] albuterol 90 mcg/actuati on inhaler 02-20 00:00: 00 Yes [id number] 2{puff} Inhale 2 Puffs every 4 (four) hours as needed for Wheezing or Shortness of Breath. [facility] albuterol 2.5 mg /3 mL (0.083 %) nebulizer solution 02-20 00:00: 00 Yes [id number] 2.5mg Inhale 3 mL every 4 (four) hours. May also nebulize one extra every 6 hours. [facility] budesonide- formoteroL 160-4.5 mcg/actuati on inhaler 02-20 00:00: 00 Yes [id number] 2{puff} Inhale 2 Puffs 2 (two) times daily. [facility] triamterene -hydrochlor othiazid 37.5-25 mg tablet 02-20 00:00: 00 Yes [id number] 1{tbl} Take 1 tablet by mouth daily. [facility] chlordiazeP OXIDE 25 mg capsule 02-20 00:00: 00 Yes [id number] 25mg Take 1 capsule by mouth every 6 (six) hours as needed for Anxiety, Agitation, Heart Rate => 100 or Detox. [facility] predniSONE 10 mg tablet 02-20 00:00: 00 Yes [id number] TAKE ONE TABLET BY MOUTH DAILY [facility] albuterol 90 mcg/actuati on inhaler 02-20 00:00: 00 Yes [id number] 2{puff} Inhale 2 Puffs every 4 (four) hours as needed for Wheezing or Shortness of Breath. [facility] albuterol 2.5 mg /3 mL (0.083 %) nebulizer solution 02-20 00:00: 00 Yes [id number] 2.5mg Inhale 3 mL every 4 (four) hours. May also nebulize one extra every 6 hours. [facility] budesonide- formoteroL 160-4.5 mcg/actuati on inhaler 02-20 00:00: 00 Yes [id number] 2{puff} Inhale 2 Puffs 2 (two) times daily. [facility] triamterene -hydrochlor othiazid 37.5-25 mg tablet 02-20 00:00: 00 Yes [id number] 1{tbl} Take 1 tablet by mouth daily. [facility] chlordiazeP OXIDE 25 mg capsule 02-20 00:00: 00 Yes [id number] 25mg Take 1 capsule by mouth every 6 (six) hours as needed for Anxiety, Agitation, Heart Rate => 100 or Detox. [facility] predniSONE 10 mg tablet 02-20 00:00: 00 Yes [id number] TAKE ONE TABLET BY MOUTH DAILY [facility] albuterol 90 mcg/actuati on inhaler 02-20 00:00: 00 Yes [id number] 2{puff} Inhale 2 Puffs every 4 (four) hours as needed for Wheezing or Shortness of Breath. [facility] albuterol 2.5 mg /3 mL (0.083 %) nebulizer solution 02-20 00:00: 00 Yes [id number] 2.5mg Inhale 3 mL every 4 (four) hours. May also nebulize one extra every 6 hours. [facility] budesonide- formoteroL 160-4.5 mcg/actuati on inhaler 02-20 00:00: 00 Yes [id number] 2{puff} Inhale 2 Puffs 2 (two) times daily. [facility] triamterene -hydrochlor othiazid 37.5-25 mg tablet 02-20 00:00: 00 Yes [id number] 1{tbl} Take 1 tablet by mouth daily. [facility] predniSONE 10 mg tablet 02-20 00:00: 00 Yes [id number] TAKE ONE TABLET BY MOUTH DAILY [facility] chlordiazeP OXIDE 25 mg capsule 02-20 00:00: 00 Yes [id number] 25mg Take 1 capsule by mouth every 6 (six) hours as needed for Anxiety, Agitation, Heart Rate => 100 or Detox. [facility] albuterol 90 mcg/actuati on inhaler 02-20 00:00: 00 Yes [id number] 2{puff} Inhale 2 Puffs every 4 (four) hours as needed for Wheezing or Shortness of Breath. [facility] albuterol 2.5 mg /3 mL (0.083 %) nebulizer solution 02-20 00:00: 00 Yes [id number] 2.5mg Inhale 3 mL every 4 (four) hours. May also nebulize one extra every 6 hours. [facility] budesonide- formoteroL 160-4.5 mcg/actuati on inhaler 02-20 00:00: 00 Yes [id number] 2{puff} Inhale 2 Puffs 2 (two) times daily. [facility] triamterene -hydrochlor othiazid 37.5-25 mg tablet 02-20 00:00: 00 Yes [id number] 1{tbl} Take 1 tablet by mouth daily. [facility] chlordiazeP OXIDE 25 mg capsule 02-20 00:00: 00 Yes [id number] 25mg Take 1 capsule by mouth every 6 (six) hours as needed for Anxiety, Agitation, Heart Rate => 100 or Detox. [facility] predniSONE 10 mg tablet 02-20 00:00: 00 Yes [id number] TAKE ONE TABLET BY MOUTH DAILY [facility] albuterol 5 mg/mL nebulizer solution 07-16 14:02: 20 Yes 2.5mg Inhale 2.5 mg every 6 (six) hours as needed for Wheezing or Shortness of Breath. [facility] albuterol 5 mg/mL nebulizer solution 07-16 14:02: 20 Yes 2.5mg Inhale 2.5 mg every 6 (six) hours as needed for Wheezing or Shortness of Breath. [facility] albuterol 5 mg/mL nebulizer solution 07-16 14:02: 20 Yes 2.5mg Inhale 2.5 mg every 6 (six) hours as needed for Wheezing or Shortness of Breath. [facility]/mL nebulizer solution 07-16 14:02: 20 Yes 2.5mg Inhale 2.5 mg every 6 (six) hours as needed for Wheezing or Shortness of Breath. [facility]/mL nebulizer solution 07-16 14:02: 20 Yes 2.5mg Inhale 2.5 mg every 6 (six) hours as needed for Wheezing or Shortness of Breath. [facility] mg/mL nebulizer solution 07-16 14:02: 20 Yes 2.5mg Inhale 2.5 mg every 6 (six) hours as needed for Wheezing or Shortness of Breath. [facility] albuterol 5 mg/mL nebulizer solution 07-16 14:02: 20 Yes 2.5mg Inhale 2.5 mg every 6 (six) hours as needed for Wheezing or Shortness of Breath. [facility] albuterol 5 mg/mL nebulizer solution 07-16 14:02: 20 Yes 2.5mg Inhale 2.5 mg every 6 (six) hours as needed for Wheezing or Shortness of Breath. [facility] budesonide- formoterol 160-4.5 mcg/actuati on inhaler 07-16 00:00: 00 Yes 2{puff} Inhale 2 Puffs 2 (two) times daily. [facility] albuterol 2.5 mg /3 mL (0.083 %) nebulizer solution 07-16 00:00: 00 Yes 2.5mg Inhale 3 mL every 4 (four) hours as needed for Wheezing or Shortness of Breath. [facility] budesonide- formoterol 160-4.5 mcg/actuati on inhaler 07-16 00:00: 00 Yes 2{puff} Inhale 2 Puffs 2 (two) times daily. [facility] albuterol 2.5 mg /3 mL (0.083 %) nebulizer solution 07-16 00:00: 00 Yes 2.5mg Inhale 3 mL every 4 (four) hours as needed for Wheezing or Shortness of Breath. [facility] budesonide- formoterol 160-4.5 mcg/actuati on inhaler 07-16 00:00: 00 Yes 2{puff} Inhale 2 Puffs 2 (two) times daily. [facility] al[facility] 2.5 mg /3 mL (0.083 %) nebulizer solution 07-16 00:00: 00 Yes 2.5mg Inhale 3 mL every 4 (four) hours as needed for Wheezing or Shortness of Breath. [facility] budesonide- formoterol 160-4.5 mcg/actuati on inhaler 07-16 00:00: 00 Yes 2{puff} Inhale 2 Puffs 2 (two) times daily. [facility] al[facility] 2.5 mg /3 mL (0.083 %) nebulizer solution 07-16 00:00: 00 Yes 2.5mg Inhale 3 mL every 4 (four) hours as needed for Wheezing or Shortness of Breath. [facility] budesonide- formoterol 160-4.5 mcg/actuati on inhaler 07-16 00:00: 00 Yes 2{puff} Inhale 2 Puffs 2 (two) times daily. [facility] al[facility] 2.5 mg /3 mL (0.083 %) nebulizer solution 07-16 00:00: 00 Yes 2.5mg Inhale 3 mL every 4 (four) hours as needed for Wheezing or Shortness of Breath. [facility] budesonide- formoterol 160-4.5 mcg/actuati on inhaler 07-16 00:00: 00 Yes 2{puff} Inhale 2 Puffs 2 (two) times daily. [facility] al[facility] 2.5 mg /3 mL (0.083 %) nebulizer solution 07-16 00:00: 00 Yes 2.5mg Inhale 3 mL every 4 (four) hours as needed for Wheezing or Shortness of Breath. [facility] budesonide- formoterol 160-4.5 mcg/actuati on inhaler 07-16 00:00: 00 Yes 2{puff} Inhale 2 Puffs 2 (two) times daily. [facility] albuterol 2.5 mg /3 mL (0.083 %) nebulizer solution 07-16 00:00: 00 Yes 2.5mg Inhale 3 mL every 4 (four) hours as needed for Wheezing or Shortness of Breath. [facility] budesonide- formoterol 160-4.5 mcg/actuati on inhaler 07-16 00:00: 00 Yes 2{puff} Inhale 2 Puffs 2 (two) times daily. [facility] albuterol 2.5 mg /3 mL (0.083 %) nebulizer solution 07-16 00:00: 00 Yes 2.5mg Inhale 3 mL every 4 (four) hours as needed for Wheezing or Shortness of Breath. [facility] triamterene -hydrochlor othiazide 37.5-25 mg per capsule 03-26 16:32: 14 Yes 1{capsu le} Take 1 capsule by mouth every morning. [facility] amLODIPine 10 mg tablet 03-26 16:32: 14 Yes 10mg Take 10 mg by mouth at bedtime. [facility] gabapentin 100 mg capsule 03-26 16:32: 14 Yes 100mg Take 100 mg by mouth 2 (two) times daily as needed ([facility] pain). [facility] foLIC acid 1 mg tablet 03-26 16:32: 14 Yes 1mg Take 1 mg by mouth daily. [facility] triamterene -hydrochlor othiazide 37.5-25 mg per capsule 03-26 16:32: 14 Yes 1{capsu le} Take 1 capsule by mouth every morning. [facility] amLODIPine 10 mg tablet 03-26 16:32: 14 Yes 10mg Take 10 mg by mouth at bedtime. [facility] gabapentin 100 mg capsule 03-26 16:32: 14 Yes 100mg Take 100 mg by mouth 2 (two) times daily as needed ([facility]). [facility] foLIC acid 1 mg tablet 03-26 16:32: 14 Yes 1mg Take 1 mg by mouth daily. [facility] triamterene -hydrochlor othiazide 37.5-25 mg per capsule 03-26 16:32: 14 Yes 1{capsu le} Take 1 capsule by mouth every morning. [facility] amLODIPine 10 mg tablet 03-26 16:32: 14 Yes 10mg Take 10 mg by mouth at bedtime. [facility] gabapentin 100 mg capsule 03-26 16:32: 14 Yes 100mg Take 100 mg by mouth 2 (two) times daily as needed ([facility] pain). [facility] foLIC acid 1 mg tablet 03-26 16:32: 14 Yes 1mg Take 1 mg by mouth daily[facility] triamterene -hydrochlor othiazide 37.5-25 mg per capsule 03-26 16:32: 14 Yes 1{capsu le} Take 1 capsule by mouth every morning. [facility] amLODIPine 10 mg tablet 03-26 16:32: 14 Yes 10mg Take 10 mg by mouth at bedtime. [facility] gabapentin 100 mg capsule 03-26 16:32: 14 Yes 100mg Take 100 mg by mouth 2 (two) times daily as needed ([facility] pain). [facility] foLIC acid 1 mg tablet 03-26 16:32: 14 Yes 1mg Take 1 mg by mouth daily. [facility] triamterene -hydrochlor othiazide 37.5-25 mg per capsule 03-26 16:32: 14 Yes 1{capsu le} Take 1 capsule by mouth every morning. [facility] triamterene -hydrochlor othiazide 37.5-25 mg per capsule 03-26 16:32: 14 Yes 1{capsu le} Take 1 capsule by mouth every morning. [facility] amLODIPine 10 mg tablet 03-26 16:32: 14 Yes 10mg Take 10 mg by mouth at bedtime. [facility] amLODIPine 10 mg tablet 03-26 16:32: 14 Yes 10mg Take 10 mg by mouth at bedtime. [facility] gabapentin 100 mg capsule 03-26 16:32: 14 Yes 100mg Take 100 mg by mouth 2 (two) times daily as needed ([facility] pain). [facility] foLIC acid 1 mg tablet 03-26 16:32: 14 Yes 1mg Take 1 mg by mouth daily. [facility] gabapentin 100 mg capsule 03-26 16:32: 14 Yes 100mg Take 100 mg by mouth 2 (two) times daily as needed ([facility] pain). [facility] foLIC acid 1 mg tablet 03-26 16:32: 14 Yes 1mg Take 1 mg by mouth daily. [facility] triamterene -hydrochlor othiazide 37.5-25 mg per capsule 03-26 16:32: 14 Yes 1{capsu le} Take 1 capsule by mouth every morning. [facility] amLODIPine 10 mg tablet 03-26 16:32: 14 Yes 10mg Take 10 mg by mouth at bedtime. [facility] gabapentin 100 mg capsule 03-26 16:32: 14 Yes 100mg Take 100 mg by mouth 2 (two) times daily as needed ([facility] pain). [facility] foLIC acid 1 mg tablet 03-26 16:32: 14 Yes 1mg Take 1 mg by mouth daily. [facility] triamterene -hydrochlor othiazide 37.5-25 mg per capsule 03-26 16:32: 14 Yes 1{capsu le} Take 1 capsule by mouth every morning. [facility] amLODIPine 10 mg tablet 03-26 16:32: 14 Yes 10mg Take 10 mg by mouth at bedtime. [facility] gabapentin 100 mg capsule 03-26 16:32: 14 Yes 100mg Take 100 mg by mouth 2 (two) times daily as needed ([facility] pain). [facility] foLIC acid 1 mg tablet 03-26 16:32: 14 Yes 1mg Take 1 mg by mouth daily. [facility] budesonide- formoterol 160-4.5 mcg/actuati on inhaler 03-26 00:00: 00 Yes 2{puff} Inhale 2 Puffs 2 (two) times daily. [facility] budesonide- formoterol 160-4.5 mcg/actuati on inhaler 03-26 00:00: 00 Yes 2{puff} Inhale 2 Puffs 2 (two) times daily. [facility] budesonide- formoterol 160-4.5 mcg/actuati on inhaler 03-26 00:00: 00 Yes 2{puff} Inhale 2 Puffs 2 (two) times daily. [facility] budesonide- formoterol 160-4.5 mcg/actuati on inhaler 03-26 00:00: 00 Yes 2{puff} Inhale 2 Puffs 2 (two) times daily. [facility] budesonide- formoterol 160-4.5 mcg/actuati on inhaler 03-26 00:00: 00 Yes 2{puff} Inhale 2 Puffs 2 (two) times daily. [facility] budesonide- formoterol 160-4.5 mcg/actuati on inhaler 03-26 00:00: 00 Yes 2{puff} Inhale 2 Puffs 2 (two) times daily. [facility] budesonide- formoterol 160-4.5 mcg/actuati on inhaler 03-26 00:00: 00 Yes 2{puff} Inhale 2 Puffs 2 (two) times daily. [facility] budesonide- formoterol 160-4.5 mcg/actuati on inhaler 03-26 00:00: 00 Yes 2{puff} Inhale 2 Puffs 2 (two) times daily. [facility] Immunizations Ordered Immunization Name Filled Immunization Name Date Status Comments Source SARS-COV-2 COVID-19 PFIZER VACCINE 2021-02-03 00:00:00 Completed [facility] SARS-COV-2 COVID-19 PFIZER VACCINE 2021-02-03 00:00:00 Completed [facility] SARS-COV-2 COVID-19 PFIZER VACCINE 2021-02-03 00:00:00 Completed [facility] SARS-COV-2 COVID-19 PFIZER VACCINE 2021-01-13 00:00:00 Completed [facility] SARS-COV-2 COVID-19 PFIZER VACCINE 2021-01-13 00:00:00 Completed [facility] SARS-COV-2 COVID-19 PFIZER VACCINE 2021-01-13 00:00:00 Completed [facility] Pneumococcal Polysaccharide, PPSV23 (PNEUMOVAX) 2018-03-26 00:00:00 Completed [facility] Influenza Virus Vaccine Quad IM 3+ YRS 2018-03-26 00:00:00 Completed [facility] Pneumococcal Polysaccharide, PPSV23 (PNEUMOVAX) 2018-03-26 00:00:00 Completed [facility] Influenza Virus Vaccine Quad IM 3+ YRS 2018-03-26 00:00:00 Completed [facility] Pneumococcal Polysaccharide, PPSV23 (PNEUMOVAX) 2018-03-26 00:00:00 Completed [facility] Influenza Virus Vaccine Quad IM 3+ YRS 2018-03-26 00:00:00 Completed [facility] Pneumococcal Polysaccharide, PPSV23 (PNEUMOVAX) Unknown Completed [facility] Influenza Virus Vaccine Quad IM 3+ YRS Unknown Completed [facility] SARS-COV-2 COVID-19 PFIZER VACCINE Unknown Completed [facility] SARS-COV-2 COVID-19 PFIZER VACCINE Unknown Completed [facility] Pneumococcal Polysaccharide, PPSV23 (PNEUMOVAX) Unknown Completed [facility] Influenza Virus Vaccine Quad IM 3+ YRS Unknown Completed [facility] SARS-COV-2 COVID-19 PFIZER VACCINE Unknown Completed [facility] SARS-COV-2 COVID-19 PFIZER VACCINE Unknown Completed [facility] Pneumococcal Polysaccharide, PPSV23 (PNEUMOVAX) Unknown Completed [facility] Influenza Virus Vaccine Quad IM 3+ YRS Unknown Completed [facility] SARS-COV-2 COVID-19 PFIZER VACCINE Unknown Completed [facility] SARS-COV-2 COVID-19 PFIZER VACCINE Unknown Completed [facility] Pneumococcal Polysaccharide, PPSV23 (PNEUMOVAX) Unknown Completed [facility] Influenza Virus Vaccine Quad IM 3+ YRS Unknown Completed [facility] SARS-COV-2 COVID-19 PFIZER VACCINE Unknown Completed [facility] SARS-COV-2 COVID-19 PFIZER VACCINE Unknown Completed [facility] Pneumococcal Polysaccharide, PPSV23 (PNEUMOVAX) Unknown Completed [facility] Influenza Virus Vaccine Quad IM 3+ YRS Unknown Completed [facility] SARS-COV-2 COVID-19 PFIZER VACCINE Unknown Completed [facility] SARS-COV-2 COVID-19 PFIZER VACCINE Unknown Completed [facility] Vital Signs Vital Name Observation Time Observation Value Comments S ource Heart rate 2024-01-14 12:15:00 98 /min [facility] Body temperature 2024-01-14 12:15:00 36.56 Debbie [facility] Respiratory rate 2024-01-14 12:15:00 14 /min [facility] Oxygen saturation in Arterial blood by Pulse oximetry 2024-01-14 12:15:00 95 /min [facility] Systolic blood pressure 2024-01-14 12:00:00 140 mm[Hg] [facility] Diastolic blood pressure 2024-01-14 12:00:00 90 mm[Hg] [facility] Body height 2024-01-14 10:51:00 162.6 cm [facility] Body weight 2024-01-14 10:51:00 81.194 kg [facility] BMI 2024-01-14 10:51:00 30.73 kg/m2 [facility] Systolic blood pressure 2023-12-23 05:02:00 133 mm[Hg] [facility] Diastolic blood pressure 2023-12-23 05:02:00 84 mm[Hg] [facility] Heart rate 2023-12-23 05:02:00 78 /min [facility] Body temperature 2023-12-23 05:02:00 36.17 Debbie [facility] Respiratory rate 2023-12-23 05:02:00 17 /min [facility] Oxygen saturation in Arterial blood by Pulse oximetry 2023-12-23 05:02:00 91 /min [facility] Body height 2023-12-23 03:45:00 162.6 cm [facility] Body weight 2023-12-23 03:45:00 81.194 kg [facility] BMI 2023-12-23 03:45:00 30.73 kg/m2 [facility] Systolic blood pressure 2023-12-22 02:08:00 143 mm[Hg] [facility] Diastolic blood pressure 2023-12-22 02:08:00 92 mm[Hg] [facility] Heart rate 2023-12-22 02:08:00 81 /min [facility] Respiratory rate 2023-12-22 02:08:00 13 /min [facility] Oxygen saturation in Arterial blood by Pulse oximetry 2023-12-22 02:08:00 95 /min [facility] Body temperature 2023-12-22 01:33:00 36.72 Debbie [facility] Body height 2023-12-22 01:33:00 162.6 cm [facility] Body weight 2023-12-22 01:33:00 81.239 kg [facility] BMI 2023-12-22 01:33:00 30.74 kg/m2 [facility] Systolic blood pressure 2023-11-11 02:00:00 127 mm[Hg] [facility] Diastolic blood pressure 2023-11-11 02:00:00 87 mm[Hg] [facility] Heart rate 2023-11-11 02:00:00 79 /min [facility] Respiratory rate 2023-11-11 02:00:00 20 /min [facility] Oxygen saturation in Arterial blood by Pulse oximetry 2023-11-11 02:00:00 98 /min [facility] Body temperature 2023-11-11 01:31:00 36.28 Debbie [facility] Body height 2023-11-11 01:31:00 162.6 cm [facility] Body weight 2023-11-11 01:31:00 79.379 kg [facility] BMI 2023-11-11 01:31:00 30.04 kg/m2 [facility] Systolic blood pressure 2023-10-27 06:54:00 133 mm[Hg] [facility] Diastolic blood pressure 2023-10-27 06:54:00 94 mm[Hg] [facility] Heart rate 2023-10-27 06:54:00 95 /min [facility] Body temperature 2023-10-27 06:54:00 36.44 Debbie [facility] Respiratory rate 2023-10-27 06:54:00 22 /min [facility] Body height 2023-10-27 06:54:00 162.6 cm [facility] Body weight 2023-10-27 06:54:00 78.472 kg [facility] BMI 2023-10-27 06:54:00 29.70 kg/m2 [facility] Oxygen saturation in Arterial blood by Pulse oximetry 2023-10-27 06:54:00 94 /min [facility] Systolic blood pressure 2022-10-14 19:43:00 111 mm[Hg] [facility] Diastolic blood pressure 2022-10-14 19:43:00 74 mm[Hg] [facility] Heart rate 2022-10-14 19:43:00 98 /min [facility] Body temperature 2022-10-14 19:43:00 36.39 Debbie [facility] Respiratory rate 2022-10-14 19:43:00 22 /min [facility] Oxygen saturation in Arterial blood by Pulse oximetry 2022-10-14 19:43:00 94 /min [facility] Body height 2022-10-14 16:13:00 162.6 [facility] 2022-10-14 16:13:00 81.647 kg [facility] BMI 2022-10-14 16:13:00 30.90 kg/m2 [facility] Systolic blood pressure 2022-03-12 10:13:00 119 mm[Hg] [facility] Diastolic blood pressure 2022-03-12 10:13:00 75 mm[Hg] [facility] Heart rate 2022-03-12 10:13:00 105 /min [facility] Body temperature 2022-03-12 10:13:00 37.28 Debbie [facility] Respiratory rate 2022-03-12 10:13:00 19 /min [facility] Body height 2022-03-12 10:13:00 162.6 cm [facility] Body weight 2022-03-12 10:13:00 99.791 kg [facility] BMI 2022-03-12 10:13:00 37.76 kg/m2 [facility] Oxygen saturation in Arterial blood by Pulse oximetry 2022-03-12 10:13:00 96 /min [facility] Systolic blood pressure 2022-02-20 11:57:00 155 mm[Hg] [facility] Diastolic blood pressure 2022-02-20 11:57:00 88 mm[Hg] [facility] Heart rate 2022-02-20 11:57:00 105 /min [facility] Respiratory rate 2022-02-20 11:57:00 18 /min [facility] Oxygen saturation in Arterial blood by Pulse oximetry 2022-02-20 11:57:00 100 /min [facility] Body temperature 2022-02-20 09:25:00 37 Debbie [facility] Body height 2022-02-20 09:25:00 162.6 cm [facility] Body weight 2022-02-20 09:25:00 96.163 kg [facility] BMI 2022-02-20 09:25:00 36.39 kg/m2 [facility] Procedures Procedure Date / Time Performed Performing Clinician Source EKG-12 LEAD 2024-01-14 12:00:51 [facility] 2024-01-14 11:11:00 Jac Navarro [facility] TROPONIN I 2024-01-14 11:11:00 Jac Navarro [facility] COMP. METABOLIC PANEL ([id number]) 2024-01-14 11:11:00 Jac Navarro [facility] ETHANOL 2024-01-14 11:11:00 Jac Navarro [facility] CBC WITH DIFF 2024-01-14 11:11:00 Jac Navarro [facility] [place] [facility] N-TERMINAL PRO-BNP 2024-01-14 11:11:00 Jac Navarro [facility] COVID-19 (ID NOW RAPID TESTING) 2024-01-14 11:11:00 Jac Navarro [facility] CONSENT/REFUSAL FOR DIAGNOSIS AND TREATMENT 2024-01-14 10:44:32 Doctor Unassigned, [place] [facility] LIPASE 2023-12-23 04:17:00 Tyler Rowe [facility] COMP. METABOLIC PANEL ([id number]) 2023-12-23 04:17:00 Tyler Rowe [facility] CBC WITH DIFF 2023-12-23 04:17:00 Tyler Rowe [facility] URINALYSIS 2023-12-23 04:17:00 Tyler Rowe [facility] CONSENT/REFUSAL FOR DIAGNOSIS AND TREATMENT 2023-12-23 03:40:32 Doctor Unassigned, [place] [facility] CT ABDOMEN PELVIS W CONTRAST 2023-12-22 02:31:05 Melinda Maciel [facility] LIPASE 2023-12-22 01:58:00 Melinda Maciel [facility] [place] [place] COMP. METABOLIC PANEL ([id number]) 2023-12-22 01:58:00 Melinda Maciel [facility] ETHANOL 2023-12-22 01:58:00 Melinda Maciel [facility] CBC WITH DIFF 2023-12-22 01:58:00 Melinda Maciel [facility] PROTHROMBIN TIME / INR 2023-12-22 01:58:00 Wali Maciel [facility] URINALYSIS 2023-12-22 01:58:00 eMlinda Maciel [facility] CONSENT/REFUSAL FOR DIAGNOSIS AND TREATMENT 2023-12-22 01:19:14 Doctor Unassigned, [place] [facility] NOTICE OF PRIVACY PRACTICES 2023-11-11 01:24:24 Doctor Unassigned, [place] [facility] CONSENT/REFUSAL FOR DIAGNOSIS AND TREATMENT 2023-11-11 01:23:54 Doctor Unassigned, [place] [facility] COVID-19 (ID NOW RAPID TESTING) 2023-10-27 07:09:00 Jac Navarro [facility] NOTICE OF PRIVACY PRACTICES 2023-10-27 06:49:48 Doctor Unassigned, [place] [facility] CONSENT/REFUSAL FOR DIAGNOSIS AND TREATMENT 2023-10-27 06:47:40 Doctor Unassigned, [place] [facility] CT ABDOMEN PELVIS W CONTRAST 2022-10-14 17:33:00 Melinda Maciel [facility] XR CHEST 1 VW 2022-10-14 17:10:37 Melinda Maciel [facility] TROPONIN I 2022-10-14 16:37:00 Melinda Maciel [facility] COMP. METABOLIC PANEL ([id number]) 2022-10-14 16:37:00 Melinda Maciel [facility] CBC WITH DIFF 2022-10-14 16:37:00 Melinda Maciel [facility] PROTHROMBIN TIME / INR 2022-10-14 16:37:00 Wali Maciel [facility] URINALYSIS 2022-10-14 16:37:00 Melinda Maciel [facility] N-TERMINAL PRO-BNP 2022-10-14 16:37[facility]AT[facility] 2022-10-14 15:56:36 Doctor Unassigned, [place] [facility] CONSENT/REFUSAL FOR DIAGNOSIS AND TREATMENT 2022-03-12 10:03:12 Doctor Unassigned, [place] [facility] XR CHEST 1 VW 2022-02-20 09:59:00 Christy Holliday [facility] LIPASE 2022-02-20 09:30:00 Christy Holliday [facility] TROPONIN I 2022-02-20 09:30:00 Christy Holliday [facility] COMP. METABOLIC PANEL ([id number]) 2022-02-20 09:30:00 Christy Holliday [facility] CBC WITH DIFF 2022-02-20 09:30:00 Christy Holliday [facility] N-TERMINAL PRO-BNP 2022-02-20 09:30:00 Christy Holliday [facility] NOTICE OF PRIVACY PRACTICES 2022-02-20 09:15:02 Doctor Unassigned, [place] [facility] CONSENT/REFUSAL FOR DIAGNOSIS AND TREATMENT 2022-02-20 09:14:47 Doctor Unassigned, [place] [facility] Encounters Start Date/Time End Date/Time Encounter Type Admission Type Attending [facility] Facility Care Department Encounter ID Source 2024-01-14 04:46:00 2024-01-14 06:23:00 Emergency X JAC NAVARRO [facility] E[facility] [id number] [facility] 2024-01-14 04:46:00 2024-01-14 06:23:00 Emergency GracielaJac marlow J [facility] 1..840.114 350.1.13.10 4.2.7.2.686 [id number] [facility] 2023-12-22 21:51:00 2023-12-22 23:13:00 Emergency X ADEMIOLIBIAMONROETYLER [facility] ERT [id number] [facility] 2023-12-22 21:51:00 2023-12-22 23:13:00 Emergency AderibiherberthTyler avendano [facility] 1..840.114 350.1.13.10 4.2.7.2.686 [id number] [facility] 2023-12-21 19:36:00 2023-12-21 21:52:00 Emergency X MELINDA MACIEL [facility] ERT [id number] [facility] 2023-12-21 19:36:00 2023-12-21 21:52:00 Emergency Melinda Maciel [facility] [id number] 350.1.13.10 4.2.7.2.686 [id number] [facility] 2023-11-10 19:29:00 2023-11-10 20:14:00 Emergency X CHRISTY HOLLIDAY [facility] ERT [id number] [facility] 2023-11-10 19:29:00 2023-11-10 20:14:00 Emergency Christy Holliday [facility] [id number] 350.1.13.10 4.2.7.2.686 [id number] [facility] 2023-10-27 00:49:00 2023-10-27 01:41:00 Emergency X JAC NAVARRO [facility] ERT [id number] [facility] 2023-10-27 00:49:00 2023-10-27 01:41:00 Emergency Jac Navarro [facility] [id number] 350.1.13.10 4.2.7.2.686 [id number] [facility] 2023-07-15 00:00:00 2023-07-15 00:00:00 Outpatient DARIEN LOBO [id number] Maria Elena Alcantara 2023-06-16 11:30:00 2023-06-16 11:30:00 Outpatient DARIEN LOBO [id number] Maria Elena Alcantara 2023-05-18 00:00:00 2023-05-18 00:00:00 Outpatient MARIA ELENA CHAN [id number] Maria Elena Alcantara 2022-10-14 10:07:00 2022-10-14 14:39:00 Emergency X MELINDA MACIEL [facility] ERT [id number] [facility] 2022-10-14 10:07:00 2022-10-14 14:39:00 Emergency Melinda Maciel [facility] 1.2.840.114 350.1.13.10 4.2.7.2.686 [id number] [facility] 2022-03-12 05:15:00 2022-03-12 06:41:00 Emergency X CHRISTY HOLLIDAY [facility] ERT [id number] [facility] 2022-03-12 05:15:00 2022-03-12 06:41:00 Emergency Christy Holliday [facility] [id number] 350.1.13.10 4.2.7.2.686 [id number] [facility] 2022-02-20 04:17:00 2022-02-20 07:16:00 Emergency X CHRISTY HOLLIDAY [facility] ERT [id number] [facility] 2022-02-20 04:17:00 2022-02-20 07:16:00 Emergency Christy Holliday [facility] [id number] 350.1.13.10 4.2.7.2.686 [id number] [facility] 2021-02-03 11:10:00 2021-02-03 11:10:00 Outpatient DENISE CAMPO [facility] [id number] [facility] 2021-01-13 11:20:00 2021-01-13 11:20:00 Outpatient [facility] [id number] [facility] 2020-11-10 08:20:00 2020-11-10 08:20:00 Outpatient KARLEY ESTRADA [facility] [id number] [facility] Results Test Description Test Time Test Comments Results Result Co mments Source [facility] 04:53:26* Test Item Value Reference Range Interpretation Comme nts LIPASE (test code = 8187201388) 105 U/L 0-220 Lab Interpretation (test cod e = 68893-3) Normal [facility] [id number] 04:34:24* Test Item Value Reference Range Interpretation [...] 33.0 g/dL 31.2-35.0 RDW-SD (test code = 16336-2) 50.9 fL 38.5-51.6 RDW-CV (test code = 788-0) 13.7 % 12.1-15.4 PLT (test code = 777-3) 232 150-328 MPV (test code = 80151-0) 8.7 fL 9.8-13.0 L NRBC/100 WBC (test code = 0708511918) 0.0 0.0-10.0 NRBC x10^3 (test code = 5629823645) See_Comment [Automated messa ge] The system which generated this result transmitted reference range: 10*3/?L. The reference range was not used to interpret this result as normal/abnormal. GRAN MAT (NEUT) % (test code = 770-8) 58.8 % IMM GRAN % (test code = 5716611309) 0.90 % LYMPH % (test code = 736-9) 27.8 % MONO % (test code = 5905-5) 10.5 % EOS % (test code = 713-8) 1.3 % BASO % (test code = 706-2) 0.7 % GRAN MAT x10^3(ANC) (test code = 4845215183) 5.68 10*3/uL 1.99-6.95 IMM GRAN x10^3 (test code = 9659155869) 0.09 10*3/uL 0.00-0.06 H LYMPH x10^3 (test code = 731-0) 2.69 10*3/uL 1.09-3.23 MONO x10^3 (test code = 742-7) 1.02 10*3/uL 0.36-1.02 EOS x10^3 (test code = 711-2) 0.13 10*3/uL 0.06-0.53 BASO x10^3 (test code = 704-7) 0.07 10*3/uL 0.01-0.09 Lab Interpretation (test code = 21685-2) Abnormal [facility] W [id number] 03:32:43Exam: CT Abdomen and Pelvis With Contrast, [...] tissues: Small fat-containing inguinal hernias.[facility] Center[facility]24-[facility] 02:32:24* Test Item Value Reference Range Interpretation Comme nts ALCOHOL (test code = 3709169805) 117 mg/dL LOUISE (test code = LOUISE) <10 Bvlrmeyl63-254 Toxic>100 Depression of CLINICAL INFORMATICS STRATEGIST>400 Fatalities Reported [facility] ([id number])2023-12-22 02:31:43* Test Item Value Reference Range Interpretation Comme nts NA (test code = 8253793737) 133 mmol/L 135-145 L K (test code = 4915925902) 3.3 mmol/L 3.5-5.0 L CL (test code = 1727575289) 102 mmol/L 98-108 CO2 TOTAL (test code = 4075816317) 25 mmol/L 23-31 AGAP (test code = 2505308827) 6 2-16 BUN (test code = 3679842696) 11 mg/dL 7-23 GLUCOSE (test code = 2822580896) 75 mg/dL 70-110 CREATININE (test code = 8820086099) 0.51 mg/dL 0.60-1.25 L TOTAL BILI (test code = 8924923068) 0.5 mg/dL 0.1-1.1 CALCIUM (test code = 0716507340) 8.9 mg/dL 8.6-10.6 T PROTEIN (test code = 6924123696) 7.2 g/dL 6.3-8.2 ALBUMIN (test code = 2851584341) 4.5 g/dL 3.5-5.0 ALK PHOS (test code = 5408198198) 46 U/L 34-122 ALTv (test code = 1742-6) 15 U/L 5-50 AST(SGOT) (test code = 6125980974) 24 U/L 13-40 eGFR (test code = 02183-2) 119.7 mL/min/1.73m2 CKD-EPI eGFR (2020). Assuming creatinine has been stable day-to-day for at least three months, the eGFR indicates Category G1 (>= 90 mL/min/1.73 m2) Lab Interpretation (test code = 23196-6) [facility]normal [facility] 02:31:43* Test Item Value Reference Range Interpretation Comme nts LIPASE (test code = 5756949596) 121 U/L 0-220 Lab Interpretation (test cod e = 97147-2) Normal [facility] CenterProthrombin Time / BQZ2052-91-34 02:21:02* Test Item Value Reference Range Interpretation Comme nts PROTIME PATIENT (test code = 5964-2) 10.5 10.1-12.6 INR (test code = 6301-6) 0.9 Normal INR <1.1; Warfarin Therapeutic range 2.0 to 3.0 or 2.5 to 3.5, depending upon the indications. Lab Interpretation (test code = 79535-8) Normal [facility] CenterCbc with Eroh4041-82-57 02:14:04* Test Item Value Reference Range Interpretation [...] 34.0 g/dL 31.2-35.0 RDW-SD (test code = 98092-7) 49.1 fL 38.5-51.6 RDW-CV (test code = 788-0) 13.5 % 12.1-15.4 PLT (test code = 777-3) 260 150-328 MPV (test code = 47828-6) 8.7 fL 9.8-13.0 L NRBC/100 WBC (test code = 8515665523) 0.0 0.0-10.0 NRBC x10^3 (test code = 8721925999) See_Comment [Automated messa ge] The system which generated this result transmitted reference range: 10*3/?L. The reference range was not used to interpret this result as normal/abnormal. GRAN MAT (NEUT) % (test code = 770-8) 64.3 % IMM GRAN % (test code = 1183732576) 0.90 % LYMPH % (test code = 736-9) 24.2 % MONO % (test code = 5905-5) 9.1 % EOS % (test code = 713-8) 0.7 % BASO % (test code = 706-2) 0.8 % GRAN MAT x10^3(ANC) (test code = 7754832165) 8.73 10*3/uL 1.99-6.95 H IMM GRAN x10^3 (test code = 8133291763) 0.12 10*3/uL 0.00-0.06 H LYMPH x10^3 (test code = 731-0) 3.28 10*3/uL 1.09-3.23 H MONO x10^3 (test code = 742-7) 1.23 10*3/uL 0.36-1.02 H EOS x10^3 (test code = 711-2) 0.10 10*3/uL 0.06-0.53 BASO x10^3 (test code = 704-7) 0.11 10*3/uL 0.01-0.09 H Lab Interpretation (test code = 59213-6) Abnormal [facility] R1440-72-31 10:16:22* Test Item Value Reference Range Interpretation Comments TROPONIN I (test code = 8013139275) 0.007 ng/mL See_Comment [Automated message] The system [...] of biotin. Lab Interpretation (test code = 71478-1) Normal [facility] CenterN-TERMINAL DAU-HUR3649-19-14 10:13:01* Test Item Value Reference Range Interpretation Comme nts NT-proBNP (test code = 7470669688) 52 pg/mL See_Comment [Automated message] The system which generated this result transmitted reference range: <=125. The reference range was not used to interpret this result as normal/abnormal. LOUISE (test code = LOUISE) Biotin has been reported to cause a negative bias, interpret results relative to patient's use of biotin. Lab Interpretation (test code = 78827-0) Normal [facility] CenterCOMP. METABOLIC PANEL (94554)2022-02-20 10:04:02* Test Item Value Reference Range Interpretation Comme nts NA (test code = 4734204745) 137 mmol/L 135-145 K (test code = 8667827047) 3.6 mmol/L 3.5-5.0 CL (test code = 1461028132) 99 mmol/L 98-108 CO2 TOTAL (test code = 1113657830) 25 mmol/L 23-31 AGAP (test code = 5511031373) 2-16 BUN (test code = 2423901477) 6 mg/dL 7-23 L GLUCOSE (test code = 4655242490) 88 mg/dL 70-110 CREATININE (test code = 1659642172) 0.55 mg/dL 0.60-1.25 L TOTAL BILI (test code = 4849947143) 0.8 mg/dL 0.1-1.1 CALCIUM (test code = 4693124739) 8.9 mg/dL 8.6-10.6 T PROTEIN (test code = 0722424337) 7.5 g/dL 6.3-8.2 ALBUMIN (test code = 9050680616) 4.8 g/dL 3.5-5.0 ALK PHOS (test code = 7740840810) 113 U/L 34-122 ALTv (test code = 1742-6) 84 U/L 5-50 H AST(SGOT) (test code = 9937226763) 107 U/L 13-40 H eGFR (test code = 1243514919) mL/min/1.73m2 LOUISE (test code = LOUISE) Association [...] imaging tests). Lab Interpretation (test code = 82929-5) Abnormal [facility] CenterLIPASE, RIRSX2174-21-38 10:03:21* Test Item Value Reference Range Interpretation Comme nts LIPASE (test code = 4705270239) 193 U/L 0-220 Lab Interpretation (test cod e = 48033-7) Normal [facility] CenterCB WITH ZZQW2634-66-75 09:39:17* Test Item Value Reference Range Interpretation Comme nts WBC (test code = 6690-2) See_Comment [Automated [employer]] The system which generated this result transmitted [...] g/dL 31.2-35.0 H RDW-SD (test code = 87184-2) 44.4 fL 38.5-51.6 RDW-CV (test code = 788-0) 11.9 % 12.1-15.4 L PLT (test code = 777-3) See_Comment [Automated messa ge] The system which generated this result transmitted reference range: 150 - 328 10*3/?L. The reference range was not used to interpret this result as normal/abnormal. MPV (test code = 88782-6) 9.2 fL 9.8-13.0 L NRBC/100 WBC (test code = 4880271912) See_Comment [Automated [employer] ssage] The system which generated this result transmitted reference range: 0.0 - 10.0 /100 WBCs. The reference range was not used to interpret this result as normal/abnormal. NRBC x10^3 (test code = 4082717145) <0.01 See_Comment [Automated messa ge] The system which generated this result transmitted reference range: 10*3/?L. The reference range was not used to interpret this result as normal/abnormal. GRAN MAT (NEUT) % (test code = 770-8) 69.9 % IMM GRAN % (test code = 8712078356) 1.50 % LYMPH % (test code = 736-9) 18.9 % MONO % (test code = 5905-5) 7.0 % EOS % (test code = 713-8) 1.9 % BASO % (test code = 706-2) 0.8 % GRAN MAT x10^3(ANC) (test code = 3057413304) 7.15 10*3/uL 1.99-6.95 H IMM GRAN x10^3 (test code = 0126634049) 0.15 10*3/uL 0.00-0.06 H LYMPH x10^3 (test code = 731-0) 1.93 10*3/uL 1.09-3.23 MONO x10^3 (test code = 742-7) 0.72 10*3/uL 0.36-1.02 EOS x10^3 (test code = 711-2) 0.19 10*3/uL 0.06-0.53 BASO x10^3 (test code = 704-7) 0.08 10*3/uL 0.01-0.09 Lab Interpretation (test code = 07251-6) Abnormal [facility] Notes Date/Time Note Provider Source 2024-01-14 06:16:25 0Cno6VvqSw9Wn5u9nfFLPts1Rd9G/FhSiR0 SE7zNL0niwlwHdq+vBbV0mYklliOk8049-9 3-07T06:16:25 Pt given printed and verbal discharge [...] w/d, pt leaving in no apparent distress, 00389-5Ohggbpphv department HwyuAC9755-23-27T66:17:20[facility] NoteTXT1.2.840.223465.1.13.104.2.7. 2.097520|[id number] for patient dcmh32688-1QmhiNMDRUUSAMTXSunxofjyz C-CDA narrative text[id number] 6UJHYNOIVDSVUAUFYXTFSHE2342-68-02R0 6:17:201.2.840.480666.1.72.3.15|1.[address] .[address].480[address].1.13.104.2.7.2.727879_[id number] [facility] 2024-01-14 04:49:43 i2DLgcwYIMjPk5i0cxM5NRPtuj6Qb+E0JFo 0m8CD9jKg6jxeHXarVmkDd5qkQzOg1634-2 04:49:43 CC: "My COPD is acting up [...] ext without difficulty, amb with steady gait 48564-2Vvytwzwwy department Triage tifjYN0602-17-02X63:55:49[facility] Triage noteTXT1.2.840.287862.1.13.104.2.7. 2.774397|[id number] for patient efuw65446-3Myknbbhch department NoteLNNARRATIVEFormatted C-CDA narrative [id number] R Shehadeh RNUT[id number] 3JEYCZMFVDGMYMFYIFVYVAK5109-70-83K4 4:55:491.2.840.263371.1.72.3.15|1.2 .840.656410.1.13.104.2.7.2.727879_2 [id number] Leah King RN [facility] - Health 2024-01-14 04:43:00 Nao63fhqH7ziUBqEeyCnt0v1KuBpsh3M3yl djsmrB+7apo4OcgttdiHj25rCx1q/04:43:00Associated Order(s): EKG-12 Lead ROUTINE ONCEPre-Procedure Diagnose(s): Chest pain, unspecified typePost-Procedure Diagnose(s): Chest pain, unspecified type [facility] Emergency Department NotePatient Name: Randy BrionesDate of : 1970 53 year old maleTreatment Room: TX1/NU1Tdjvnrm Record Number: [id number] Care Physician: Adrianna King Escorted by: Family [5]Mode of Arrival: Personal means [1]EMS Treatment Prior to ED Arrival:[employer] treatment: NTGPTA treatment comments: 0.4 mg SL taken [employer], no releifTravel and Exposure Screening:SymptomsDoes patient have [...] Resident: Max Nur Results:Lab ResultsCOMP. METABOLIC PANEL (53626) - AbnormalResult Value Ref RangeNA 138 135 [...] 49 (*) 13 - 40 U/LeGFR 93.3 mL/min/1.17u1QCI WITH DIFF - AbnormalWBC 11.59 (*) 4.20 [...] 220 U/LCOVID-19 (ID NOW RAPID TESTING) - JvcttaDZZU-WqI-2 Rapid ID NOW Not Detected Not DetectedETHANOLALCOHOL 62 mg/dLEKG:If EKG completed, see Procedure Note.Orders and Treatments:Orders Placed This EncounterProcedures XR CHEST 1 VW TROPONIN I COMP. METABOLIC PANEL (89092) LIPASE, SERUM CBC WITH DIFF N-Terminal Pro-Bnp Ethanol COVID-19 (ID NOW TESTING) Lab Only COVID Interpretation O2 Per ProtocolOrders Placed This EncounterMedications morpHINE (4 mg/mL) injection 4 mg ondansetron (ZOFRAN (PF)) injection 4 mg ipratropium-albuteroL (DUONEB) 0.5 mg-3 mg(2.5 mg base)/3 mL nebulizer solution 3 mLFirst Provider Eval:ED EventsDate/Time Event User Cglsexcs63/07/24 0510 Medical Screening Begins JAC NAVARRO MD --01/14/24 0510 First Provider Evaluation JAC NAVARRO MD --ED COURSEDiagnosis/Impression as of 01/14/24 0605Chest pain, unspecified typeBronchitisProcedures:EKG-12 Lead ROUTINE ONCEDate/Time: 01/14/2024 5:24 AMPerformed by: Jac Navarro MDAuthorized by: Jac Navarro MDECG interpreted by ED Physician in the absence of a rn homecare: yesPrevious ECG:Previous ECG: Compared to currentSimilarity: No [...] on fileFollow-up:Electronically signed by:Jac Navarro MD01/14/24 06 04027-6Qtmccjhtd Emergency department SvcuAD9007-47-60N15:00:50Physician Emergency department NoteTXT1.2.840.257165.1.13.104.2.7. 2.378760|[id number] for patient mnog64710-6Zksfhnicv department NoteLNNARRATIVEFormatted C-CDA narrative text[address] Bm[id number] 4DTQMKBCRBIWVVLFDJZLMVZ6073-76-40N6 6:00:501.2.840.486956.1.72.3.15|1.[address]351163.1.13.104.2.7.2.727879_[id number] [facility] 2023-12-22 23:12:16 OfR1+hkJlkXfpK7GKrNG2kjOUjr3PxEZqO4 aYTmOuadhTYJjPgDu60s8EiIcg9lH7818-1 12-22T23:12:16 Pt given printed and verbal discharge [...] with steady gait, in no apparent distress, 84853-7Rwchziprb department RvrwRV9291-45-83A72:13:50Emergency department NoteTXT1.2.840.217581.1.13.104.2.7. 2.766573|[id number] for patient befx50404-0OnqhYGMGETGPXRMSuobbifzm C-CDA narrative [id number] BRADFORD[address] Cq[id number] 1NEKEVMGMONIDTSTLRHCFQO8790-54-16T7 3:13:501.2.840.699338.1.72.3.15|1.2 .840.475184.1.13.104.2.7.2.727879_2 [id number] Mary [address]aña RN [facility] 2023-12-22 21:41:55 yBRlG1HwaR77JkTierxdwITxBSHDUTgpARs mUTYEEhgltkYqsEzol5s+8+SSA2C50908-8 12-22T21:41:55 Pt arrives ambulatory to ED reporting bleeding with stools and 10/10 abdominal pain. States he was here last night but had to leave before receiving results d/t having to work. Says the pain became worse so he came back in. 70410-8Kbbjqcgye department Triage fkhhUX2262-59-01Y13:48:52[facility] Triage noteTXT1.2.840.638179.1.13.104.2.7. 2.971762|[id number] for patient aukx42405-6Wiadpdmrx department NoteLNNARRATIVEFormatted C-CDA narrative gbiv021933379Kdmwtk L Williams RNUT[address] Fn[id number] 9MFHUCVMKIIRPIMKWYDOYJG0237-94-22H1 1:48:521.2.840.418222.1.72.3.15|1.2 .840.151710.1.13.104.2.7.2.727879_2 [id number] [facility] 2023-12-21 21:31:00 Di4CrFmXG+z1KjB7rF/HK7A4Yhde37Fe3h3 11zog+AOeQIRXL7O+fnd8Zx5c9q8V6084-1 12-21T21:31:00 Patient leaving AMA,discussed risks of leaving against medical advice, Dr. Maciel aware and notified of patient's decision.Patient encouraged to seek medical attention for any new/prolonged/worsening of symptoms and stressed importance of follow up with a medical provider as soon as possible. AMA form explained, patient signed form.IV d'cd, dressing to site.Patient leaving ambulatory with steady gait, appears in no distress. 22162-2Hprbeovvp department XmigSY6359-64-65C10:38:39[facility] NoteTXT1.2.840.188135.1.13.104.2.7. 2.426787|[id number] for patient cksh29703-4LsllQHEAEDBRXNITovufoesj C-CDA narrative fkme259536696ZtgluMary Magaña RN[id number] 4PBGFHSPGJQEQLVGGDSXCEC8735-06-94S6 1:38:391.2.840.997624.1.72.3.15|1.2 .840.265035.1.13.104.2.7.2.727879_2 [id number] Mary [address]aña RN [facility] 2023-12-21 21:30:00 5Pw6Kf+MmnZ5ZZW24yetzKojFfYxUMZXbxi 1x3LR+arQQD7mA9AF76nTZ/riFccH6238-3 12-21T21:30:00 Pt wished to leave AMA. Pt states " yall were wonderful but 3am come real early." 82364-3Bbvjltyqf department FbhjCA6793-49-77S42:36:58[facility] NoteTXT1.2.840.732207.1.13.104.2.7. 2.359480|[id number] for patient gmff96081-0QnffJUACCRDMJVLOwpnhqxiw C-CDA narrative text[id number] 2XFYGYDWRORWUNYMPQZDMZP3239-84-53I1 1:36:581.2.840.184479.1.72.3.15|1.[address]740660.1.13.104.2.7.2.727879_[id number] [facility] 2023-12-21 21:26:22 MNofxIgElmZwcwXB1l6LuCtZnMPHqzsVmTI 5GPNtK1jEYo9jgy1KEnLV7g7EeYkx2842-6 12-21T21:26:22 Pt asking to go outside and smoke, wants to go home and eat. Pt educated on risks of leaving AMA. Provider informed pt is in pain. 43421-5Oylppuiql department LkbnSQ5576-86-14F86:33:35Emergency department NoteTXT1.2.840.269056.1.13.104.2.7. 2.901665|[id number] for patient hmqn24355-8KqjsYDDJKZHIRXYHnatwibgu C-CDA narrative dzos465418351Wggntg R Shehadeh RN[address] StreetFmncQsztogzayJofeymtjyPYOW251388877 6XRAJZUPQAXDOEAXISPEGGW7205-50-00P2 1:33:351.2.840.995347.1.72.3.15|1.2 .840.936728.1.13.104.2.7.2.727879_2 [id number] RN [facility] 2023-12-21 19:31:50 7ux9+6lqUZy9NqdcC1eDR5oDYfVIq7fChcp RyIIlqF4sqQeEc5tOxXXe2nm+JFtI9578-9 12-21T19:31:50 Pt arrived ambulatory with complaints of bright red rectal bleeding and generalized abdominal pain this afternoon. Pt states his stool was normal consistency but continuous bright red blood. Denies this happening before.Pt is an alcoholic, had 2 beer [employer]. States he vomits all the time but not something new today. 03471-8Iolblpxdq department Triage owqgYW3101-88-66C19:33:28[facility] Triage noteTXT1.2.840.082884.1.13.104.2.7. 2.865395|[id number] for patient bjsf70085-1Tfcsnoxdf department NoteLNNARRATIVEFormatted C-CDA narrative [id number] D Roman RN[address] Nox[id number] 1BPKPUPDDGJDOKOOTJFIXVU7829-90-75C7 9:33:281.2.840.327563.1.72.3.15|1.2 .840.955917.1.13.104.2.7.2.727879_2 [id number] Gabi Esqueda RN [facility] 2023-11-10 20:13:39 ifIfkWOBMu1BxtWBZBn1OtwN56n/TlPnCn4 [facility]/BN382eY6MVmQxSIw9fjoUPspU5552-1 11-10T20:13:39 Pt requesting to leave AMA. ERP notified. Pt counseled to remain, risks of leaving AMA including discussed with pt. Pt continued to decline further ER evaluation at this time. AMA papers signed, witnessed, and placed on patient's chart. Pt left ambulatory. VS stable, no ataxia noted, GCS 15, A&Ox4. 36923-1Owgzgwepj department NyopJN1876-31-76H77:13:52[facility] department NoteTXT1.2.840.523770.1.13.104.2.7. 2.740099|[id number] for patient bwfx76871-3YarlCFTRTOIOSKTZurwwiypv C-CDA narrative emey075331283Rgvara Sarika Mitchell RNUT[id number] 8SSSRDFJYIAQJCQMRBGVFAA7458-10-16A8 0:13:521.2.840.614299.1.72.3.15|1.2 .840.526689.1.13.104.2.7.2.727879_1 [id number] [address] Medrano RN [facility] 2023-11-10 19:30:29 o2Or5/GbE7p7Y1utp+7HHtdmVtxF/EYpEtf YDHCfiT7PQqN/sxHl79qOs9KZ5x3f0742-6 11-10T19:30:29 Patient arrived to ED c/o SOB and COPD exacerbation. Symptoms started this morning. Patient wears 3L NC at home. Patient is a smoker. Patient states having the chills, diarrhea, and vomiting. States having sharp pains in chest from coughing. 89165-1Zjpzhkkhn department Triage ibvtYY0173-36-79S83:35:27[facility] Triage noteTXT1.2.840.531330.1.13.104.2.7. 2.611165|[id number] for patient ifdo62219-5Tdbnyfwyv department NoteLNNARRATIVEFormatted C-CDA narrative [id number]-Oseoo McInnis RNUT[id number] 8JPQHAZSSQEWTENEDTBNBUQ5887-09-21F4 9:35:271.2.840.798190.1.72.3.15|1.2 .840.613939.1.13.104.2.7.2.727879_1 [id number] S[address]har Gomez RN [facility]
--- NOTE | 2024-02-07 17:23 | ER ---
Nurse's Notes [facility] Name: Randy Briones Age: 53 yrs Sex: Male : 1970 Arrival Date: 02/07/2024 Time: 16:39 Bed 13 Private MD: Diagnosis: Chronic hip pain, chronic pain Presentation: 02/06 17:00 Chief complaint: Patient states: left hip pain. pt was seen last night for same thing. as6 Coronavirus screen: At this time, the client does not indicate any symptoms associated with coronavirus-19. Ebola Screen: No symptoms or risks identified at this time. Initial Sepsis Screen: Does the patient meet any 2 criteria? No. Patient's initial sepsis screen is negative. Does the patient have a suspected source of infection? No. Patient's initial sepsis screen is negative. Risk Assessment: Do you want to hurt yourself or someone else? Patient reports no desire to harm self or others. Onset of symptoms was February 06, 2024. 17:00 Acuity: CANDACE 4 as6 17:00 Method Of Arrival: Wheelchair as6 Historical: - Allergies: 17:00 Lisinopril; as6 - PMHx: 17:00 Alcoholism; COPD; Hepatitis B (Hypertension); home 02 3LNC PRN; Hypertension; as6 Osteoporosis; - PSHx: 17:00 Amputation of left index finger; as6 - Immunization history:: Adult Immunizations up to date. - Social history:: Smoking status: Patient reports the use of cigarette tobacco products, smokes three packs cigarettes per day. Screenin:08 [facility] ED Fall Risk Assessment (Adult) History of falling in the last 3 months, kc6 including since admission No falls in past 3 months (0 pts) Confusion or Disorientation No (0 pts) Intoxicated or Sedated No (0 pts) Impaired Gait No (0 pts) Mobility Assist Device Used No (0 pt) Altered Elimination No (0 pt) Score/Fall Risk Level 0 - 2 = Low Risk. Abuse screen: Denies threats or abuse. Denies injuries from another. Nutritional screening: No deficits noted. Tuberculosis screening: No symptoms or risk factors identified. Assessment: 17:15 Reassessment: pt left at this time with significant other. kc6 Vital Signs: 17:00 BP 170 / 110; Pulse 109; Resp 20 S; Temp 97.2(TE); Pulse Ox 95% on R/A; Weight 79.38 kg as6 (R); Height 5 ft. 4 in. (R); Pain 10/10; 17:00 Body Mass Index 30.04 (79.38 kg, 162.56 cm) as6 17:00 Pain Scale: Adult as6 ED Course: 16:43 Patient arrived in ED. im 16:51 Imani Frances MD is Attending Physician. sp3 16:58 Manda Samaniego, RN is Primary Nurse. kc6 17:00 Arm band placed on. as6 17:01 Triage completed. as6 17:08 Patient maintains SpO2 saturation greater than 95% on room air. kc6 17:09 Patient has correct armband on for positive identification. Bed in low position. Call kc6 light in reach. Side rails up X 1. Adult w/ patient. Client placed on continuous cardiac and pulse oximetry monitoring. NIBP monitoring applied. 17:28 No provider procedures requiring assistance completed. Patient did not have IV access kc6 during this emergency room visit. Administered Medications: No medications were administered Medication: 17:29 VIS not applicable for this client. kc6 Outcome: 17:22 Discharge ordered by . sp3 17:28 Discharged to home ambulatory, with significant other, kc6 17:28 Condition: good 17:28 Discharge instructions given to patient, Instructed on discharge instructions, follow up and referral plans. Demonstrated understanding of instructions, follow-up care, 17:29 Patient left the ED. kc6 Signatures: Imani Frances MD MD sp3 Parish Chapman RN RN as6 Manda Samaniego, BRIGETTE RN kc6 Coral Townsend im
--- NOTE | 2024-02-07 17:23 | EDPHYS ---
Physician Documentation [facility] Name: Randy Briones Age: 53 yrs Sex: Male : 1970 Arrival Date: 02/07/2024 Time: 16:39 Bed 13 Private MD: ED Physician Imani Frances HPI: 02/06 17:20 This 53 yrs old Male presents to ER via Wheelchair with complaints of Hip Pain. sp3 17:20 53-year-old male with a history of alcoholism, hypertension, COPD well-known to the ED sp3 now presents to the ED with chief complaint left hip pain. Patient is had multiple visits for this and this is chronic in nature. He denies any fall, trauma or any other abnormality. Patient was here yesterday and was admitted and inpatient hospitalist team saw patient and was going to discharge him with oral meds. Patient was upset at that time and eloped prior to getting prescriptions. He denies any other symptoms on ROS at this time.. Historical: - Allergies: 17:00 Lisinopril; as6 - PMHx: 17:00 Alcoholism; COPD; Hepatitis B (Hypertension); home 02 3LNC PRN; Hypertension; as6 Osteoporosis; - PSHx: 17:00 Amputation of left index finger; as6 - Immunization history:: Adult Immunizations up to date. - Social history:: Smoking status: Patient reports the use of cigarette tobacco products, smokes three packs cigarettes per day. ROS: 17:21 Constitutional: Negative for fever, chills, and weight loss, Eyes: Negative for injury, sp3 pain, redness, and discharge, Neck: Negative for injury, pain, and swelling, Cardiovascular: Negative for chest pain, palpitations, and edema, Respiratory: Negative for shortness of breath, cough, wheezing, and pleuritic chest pain, Abdomen/GI: Negative for abdominal pain, nausea, vomiting, diarrhea, and constipation, Back: Negative for injury and pain, Skin: Negative for injury, rash, and discoloration, Neuro: Negative for headache, weakness, numbness, tingling, and seizure, 17:21 All other systems are negative, Exam: 17:21 Constitutional: This is a well developed, well nourished patient who is awake, alert, sp3 and in no acute distress. Head/Face: Normocephalic, atraumatic. Eyes: Pupils equal round and reactive to light, extra-ocular motions intact. Lids and lashes normal. Conjunctiva and sclera are non-icteric and not injected. Cornea within normal limits. Periorbital areas with no swelling, redness, or edema. Neck: Trachea midline, no thyromegaly or masses palpated, and no cervical lymphadenopathy. Supple, full range of motion without nuchal rigidity, or vertebral point tenderness. No Meningismus. Chest/axilla: Normal chest wall appearance and motion. Nontender with no deformity. No lesions are appreciated. Cardiovascular: Regular rate and rhythm with a normal S1 and S2. No gallops, murmurs, or rubs. Normal PMI, no JVD. No pulse deficits. Respiratory: Lungs have equal breath sounds bilaterally, clear to auscultation and percussion. No rales, rhonchi or wheezes noted. No increased work of breathing, no retractions or nasal flaring. Abdomen/GI: Soft, non-tender, with normal bowel sounds. No distension or tympany. No guarding or rebound. No evidence of tenderness throughout. Skin: Warm, dry with normal turgor. Normal color with no rashes, no lesions, and no evidence of cellulitis. MS/ Extremity: Pulses equal, no cyanosis. Neurovascular intact. Full, normal range of motion. Neuro: Awake and alert, GCS 15, oriented to person, place, time, and situation. Cranial nerves II-XII grossly intact. Motor strength 5/5 in all extremities. Sensory grossly intact. Cerebellar exam normal. Normal gait. Psych: Awake, alert, with orientation to person, place and time. Behavior, mood, and affect are within normal limits. Vital Signs: 17:00 BP 170 / 110; Pulse 109; Resp 20 S; Temp 97.2(TE); Pulse Ox 95% on R/A; Weight 79.38 kg as6 (R); Height 5 ft. 4 in. (R); Pain 10/10; 17:00 Body Mass Index 30.04 (79.38 kg, 162.56 cm) as6 17:00 Pain Scale: Adult as6 MDM: 17:01 Patient medically screened. sp3 17:21 Data reviewed: vital signs, nurses notes. ED course: Objectively normal exam with mild sp3 pain to palpation laterally. I believe this is all chronic pain. Patient demanded narcotics and when not given, he stated that he wanted to leave. So patient was discharged and have advised him to follow-up with his PCP for his chronic pain care.. Administered Medications: No medications were administered Disposition Summary: 02/07/24 17:22 Discharge Ordered Notes: Location: Home sp3 Condition: Stable sp3 Diagnosis - Chronic hip pain, chronic pain sp3 Followup: sp3 - With: Private Physician - When: Upon discharge from the Emergency Department - Reason: Continuance of care Discharge Instructions: - Discharge Summary Sheet sp3 - Chronic Pain, Adult sp3 Forms: - Medication Reconciliation Form sp3 - Thank You Letter sp3 - Antibiotic Education sp3 - Prescription Opioid Use sp3 - Patient Portal Instructions sp3 - Leadership Thank You Letter sp3 Signatures: Imani Frances MD MD sp3 Parish Chapman, RN RN as6
[2024-02-07 22:29] VITALS: BP 170/110; TEMP 97.2; O2SAT 95
== END 2024-02-07 17:29 | disposition home or self-care (01) ==
LOC: ER 16:39
DX: G89.29 Other chronic pain (principal); I10 Essential (primary) hypertension; F10.20 Alcohol dependence, uncomplicated; J44.9 Chronic obstructive pulmonary disease, unspecified; Z99.81 Dependence on supplemental oxygen; F17.210 Nicotine dependence, cigarettes, uncomplicated; Z88.8 Allergy status to other drugs, medicaments and biological substances
CPT/HCPCS: 99284

== ENCOUNTER 2024-02-09 23:47 | Emergency (ER) | payer OTHER ==
--- OUTSIDE RECORDS SUMMARY | 2024-02-09 23:52 | XMS REPORT | Continuity of Care Document ---
Author Name Unknown Address [address] [facility] [address] [place] [address] [facility] [address] 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 Role Phone Adrianna Michaels Primary Care Physician [phone] URSULA QUINTANILLA Attending Clinician Unavailable KEISHA DAVENPORT Attending Clinician Unav ailKeisha Simpson MD Attending Clinician + Christina Victoria Attending Clinician [phone] JAC NAVARRO Attending Clinician Unavailable Jac Navarro MD Attending Clinician [phone] TYLER ROWE Attending Clinician Unavailab MELINDA Boothe Attending Clinician Unavailable Melinda Maciel DO Attending Clinician [phone] CHRISTY HOLLIDAY Attending Clinician Unavailable Christy Holliday MD Attending Clinician DARIEN LOBO Attending Clinician Unavailable MARIA ELENA CHAN MEDICAL Attending George akins Unavailable DENISE SUNG Attending Clinician Unavailable KARLEY ADAMS Attending Clinician Unavailable JAC NAVARRO Admitting Clinician Unavailable MELINDA MACIEL Admitting Clinician Unavailable CHRISTY HOLLIDAY Admitting Clinician Unavailable Payers Payer Name Policy Type Policy Number Effective Date Expirati on Date Source [facility] [id number] 2023 00:00:00 2024 00:00:00 [employer] [id number] 2023 00:00:00 [employer] 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MO VP INTEGRATION 94 ON 9 [id number] 2023 00:00:00 Problems Condition Name Condition Details Condition Category Status Onset Date Resolution Date Last Treatment Date Treating Clinician Comments Source Acute exacerbati on of chronic obstructiv e pulmonary disease (COPD) Acute exacerbati on of chronic obstructiv e pulmonary disease (COPD) Disease Active 03-24 00:00: 00 [facility] Obesity (BMI 30-39.9) Obesity (BMI 30-39.9) Disease Active 03-24 00:00: 00 [facility] Allergies, Adverse Reactions, Alerts Allergy Name Allergy Type Status Severity Reaction(s) Onset Date Inactive Date Treating Clinician Comments Source Lisinopr il Propensi ty to adverse reaction s Active Anaphylaxis 03-24 00:00: 00 [facility] LISINOPR [place] DRUG INGREDI Active Anaphylaxis 03-24 00:00: 00 [facility] Social History Social Habit Start Date Stop Date Quantity Comments Source History of tobacco use Smokes tobacco daily [facility] Social function 2024-02-08 00:00:00 2024-02-08 00:00:00 [facility] Alcohol intake 2024-02-08 00:00:00 2024-02-08 00:00:00 4.29 /d [facility] Exposure to SARS-CoV-2 (event) 2022-10-04 00:00:00 2022-10-14 10:25:00 Not sure [facility] Tobacco use and exposure 2018-03-24 00:00:00 2018-03-24 00:00:00 User of smokeless tobacco [facility] Tobacco Comment 2018-03-24 00:00:00 2018-03-24 00:00:00 trying to quit [facility] Sex Ass[birth year] At 1970 00:00:00 1970 00:00:00 [facility] Smoking Status Start Date Stop Date Source Smokes tobacco daily 2018-03-24 00:00:00 [facility] Medications Ordered Medication Name Filled Medication Name Start Date Stop Date Current Medication? Ordering Clinician Indication Dosage Frequency Signature (SIG) Comments Components Source ketorolac (TORADOL) injection 15 mg 02-08 03:00: 00 02-08 02:21 :00 No 15mg 15 mg, Slow IV Push, ONCE, 1 dose, On Thu02/08/24 at 2200, Routine [facility] iopamidol (ISOVUE 370-500 mL) injection 100 mL 02-07 22:30: 00 02-07 22:30 :00 Yes [id number] 100mL 100 mL, Intravenou s, ONCE, 1 dose, On Thu02/08/24 at 1730, Routine [facility] ipratropium -albuteroL (DUONEB) 0.5 mg-3 mg(2.5 mg base)/3 mL nebulizer solution 3 mL 02-07 21:15: 00 02-07 20:45 :00 No 3mL 3 mL, Inhalation , ONCE, 1 dose, On Thu02/08/24 at 1615, Routine [facility] morpHINE (2 mg/mL) injection 4 mg 02-07 21:15: 00 02-07 20:27 :00 No 4mg 4 mg, Slow IV Push, ONCE, 1 dose, On Thu02/08/24 at 1615, STAT [facility] ondansetron (ZOFRAN (PF)) injection 4 mg 02-07 21:15: 00 02-07 20:22 :00 No 4mg 4 mg, Slow IV Push, ONCE, 1 dose, On Thu02/08/24 at 1615, [facility] magnesium sulfate in water 2 gram/50 mL (4 %) infusion 2 g 02-07 21:00: 00 02-07 21:30 :00 No 2g 2 g, IV Piggyback, Administer over 60 Minutes, ONCE, 1 dose, On Thu02/08/24 at 1600, Routine [facility] ipratropium -albuteroL (DUONEB) 0.5 mg-3 mg(2.5 mg base)/3 mL nebulizer solution 3 mL 02-07 20:30: 00 02-07 19:31 :00 No 3mL 3 mL, Inhalation , ONCE, 1 dose, On Thu02/08/24 at 1530, Routine [facility] HYDROcodone -acetaminop hen (NORCO) 10-325 mg tablet 1 tablet 01-13 13:15: 00 01-13 12:15 :00 No 1{tbl} 1 tablet, Oral, ONCE, 1 dose, On Thu01/14/24 at 0715, [facility] ipratropium -albuteroL (DUONEB) 0.5 mg-3 mg(2.5 mg base)/3 mL nebulizer solution 3 mL 01-13 13:00: 00 01-13 11:53 :00 No 3mL 3 mL, Inhalation , ONCE NOW, 1 dose, On Thu01/14/24 at 0700, [facility] ondansetron (ZOFRAN (PF)) injection 4 mg 01-13 11:30: 00 01-13 11:37 :00 No 4mg 4 mg, Slow IV Push, ONCE, 1 dose, On Thu01/14/24 at 0530, [facility] morpHINE (4 mg/mL) injection 4 mg 01-13 11:30: 00 01-13 11:37 :00 No 4mg 4 mg, Slow IV Push, ONCE, 1 dose, On Thu01/14/24 at 0530, STAT [facility] azithromyci n (ZITHROMAX Z-PORTER) 250 mg tablet 01-13 00:00: 00 Yes [id number] Take 500 mg on day 1 then 250 mg on days 2-5 [facility] predniSONE 20 mg tablet 01-13 00:00: 00 Yes [id number] Take 1 po tid x 2 days, then take 1 po bid x 3 days, then take 1 po daily x [address] [facility] acetaminoph en-codeine 300-30 mg tablet 01-13 00:00: 00 01-21 04:59 :00 Yes [id number] 1{tbl} Take 1 tablet by mouth every 6 (six) hours as needed for Pain (scale 7-10) (severe cough) for up to 7 days. Indication s: acute pain, severe cough [facility] KCL (KLOR-CON M20) tablet 40 mEq 12-23 05:00: 00 12-23 05:07 :00 No 40meq 40 mEq, Oral, ONCE, 1 dose, On Thu12/22/23 at 2300, [facility] NaCl 0.9% (NS) bolus infusion 1,000 mL 12-23 05:00: 00 12-23 05:09 :00 No 1000mL at 999 mL/hr, 1,000 mL, IV Infusion, ONCE, 1 dose, On Thu12/22/23 at 2300, [facility] ondansetron (ZOFRAN (PF)) injection 4 mg 12-23 04:30: 00 12-23 04:24 :00 No 4mg 4 mg, Slow IV Push, ONCE, 1 dose, On Thu12/22/23 at 2230, [facility] maalox:diph enhydrAMINE :lidocaine 2 % viscous 1:1:1 (FIRST-MOUT HWASH BLM) oral suspension 15 mL 12-23 04:15: 00 12-23 04:17 :00 No 15mL 15 mL, Oral, ONCE, 1 dose, On Thu12/22/23 at 2215, Routine [facility] famotidine (PEPCID (PF)) injection 20 mg 12-23 04:15: 00 12-23 04:15 :00 No 20mg 20 mg, Slow IV Push, ONCE, 1 dose, On Thu12/22/23 at 2215, [facility] HYDROcodone -acetaminop hen (NORCO) 10-325 mg tablet 1 tablet 12-22 04:30: 00 12-22 16:29 :00 Yes 1{tbl} 1 tablet, Oral, ONCE, 1 dose, On Thu12/21/23 at 2230, Routine [facility] pantoprazol e (PROTONIX) 80 mg in NaCl 0.9% (NS) 20 mL syringe 12-22 04:15: 00 12-22 16:14 :00 Yes 80mg 80 mg, IV Push, ONCE, 1 dose, On Thu12/21/23 at 2215, Administer over 2 Minutes, [address] [facility] iopamidol (ISOVUE 370-500 mL) injection 100 mL 12-22 03:30: 00 12-22 03:30 :00 No [id number] 100mL 100 mL, Intravenou s, ONCE, 1 dose, On Thu12/21/23 at 2130, Routine [facility] morpHINE (4 mg/mL) injection 4 mg 12-22 03:30: 00 12-22 02:16 :00 No 4mg 4 mg, Slow IV Push, ONCE, 1 dose, On Thu12/21/23 at 2130, Routine [facility] ondansetron (ZOFRAN (PF)) injection 4 mg 12-22 02:45: 00 12-22 02:02 :00 No 4mg 4 mg, Slow IV Push, ONCE, 1 dose, On Thu12/21/23 at 2045, Routine [facility] ondansetron 4 mg disintegrat ing tablet 12-22 00:00: 00 Yes [id number] 4mg Take 1 tablet by mouth every 8 (eight) hours as needed for Nausea and Vomiting (N/V). [facility] hydrocortis one 25 mg suppository 12-22 00:00: 00 Yes [id number] 25mg Insert 1 Suppositor y into rectum 2 (two) times daily as needed for Rectal itching/pa in. [facility] amoxicillin -clavulanat e 875-125 mg per tablet 12-22 00:00: 00 01-02 05:59 :00 Yes [id number] 1{tbl} Take 1 tablet by mouth every 12 (twelve) hours for [address] [facility] methylpredn isolone sod succ (SOLU-MEDRO L) injection 125 mg 2022-11 08:45: 00 10-27 20:44 :00 No 125mg 125 mg, Slow IV Push, ONCE, 1 dose, On Thu10/27/23 at 0245, STAT [facility] ipratropium -albuteroL (DUONEB) 0.5 mg-3 mg(2.5 mg base)/3 mL nebulizer solution 3 mL 2022-11 08:45: 00 10-27 20:44 :00 No 3mL 3 mL, Inhalation , ONCE NOW, 1 dose, On Thu10/27/23 at 0245, [facility] diazePAM (VALIUM) tablet 10 mg 2022-11 07:45: 00 10-27 19:44 :00 No 10mg 10 mg, Oral, ONCE, 1 dose, On Thu10/27/23 at 0145, [facility] levoFLOXaci n (LEVAQUIN) tablet 500 mg 2022-11 07:45: 00 10-27 19:44 :00 No 500mg 500 mg, Oral, ONCE, 1 dose, On Thu10/27/23 at 0145, [facility]
Re ason for Anti-Infec tive: Empiric Non-Surgic al Prophylaxi s
Durat ion of therapy: Once (ED) [facility] iopamidol (ISOVUE 370-500 mL) injection 70 mL 2021-11 18:30: 00 10-14 18:30 :00 No [id number] 70mL 70 mL, Intravenou s, ONCE, 1 dose, On Thu10/14/22 at 1230, Routine [facility] methylpredn isolone sod succ (SOLU-MEDRO L) injection 125 mg 2021-11 18:00: 00 Yes 125mg 125 mg, Intravenou s, Q6H, First dose on Thu10/14/22 at 1200, Until Discontinu ed, Routine [facility] furosemide (LASIX) injection 40 mg 2021-11 17:45: 00 10-14 16:39 :00 No 40mg 40 mg, IV Push, ONCE, 1 dose, On Thu10/14/22 at 1145, [facility] ipratropium -albuteroL (DUONEB) 0.5 mg-3 mg(2.5 mg base)/3 mL nebulizer solution 3 mL 2021-11 17:30: 00 10-14 16:41 :00 No 3mL 3 mL, Inhalation , ONCE, 1 dose, On Thu10/14/22 at 1130, Routine [facility] FENTanyl PF (SUBLIMAZE (PF)) injection 50 mcg 2021-11 16:45: 00 10-14 16:39 :00 No 50ug 50 mcg, Slow IV Push, ONCE, 1 dose, On Thu10/14/22 at 1045, Routine [facility] levoFLOXaci n 750 mg tablet 2021-11 00:00: 00 Yes [id number] 750mg Take 1 tablet by mouth every 24 (twenty-fo ur) hours. [facility] HYDROcodone -acetaminop hen (NORCO) 10-325 mg tablet 1 tablet 03-12 12:15: 00 03-12 11:21 :00 No 1{tbl} 1 tablet, Oral, ONCE, 1 dose, On Thu03/12/22 at 0715, Routine [facility] HYDROcodone -acetaminop hen 10-325 mg tablet 5-04 00:00: 00 03-20 04:59 :00 No [id number] 1{tbl} Take 1 tablet by mouth every 6 (six) hours as needed for Pain (scale 7-10) for up to 7 days. Indication s: acute pain [facility] ipratropium -albuteroL (DUONEB) 0.5 mg-3 mg(2.5 mg base)/3 mL nebulizer solution 3 mL 02-20 13:00: 00 Yes 3mL 3 mL, Inhalation , QID, First dose on Kym 02/20/22 at 0800, Until Discontinu ed, Routine [facility] methylPREDN ISolone sod succ (SOLU-MEDRO L (PF)) injection 40 mg 02-20 11:45: 00 02-20 10:43 :00 No 40mg 40 mg, Intravenou s, ONCE, 1 dose, On Kym 02/20/22 at 0645, STAT [facility] foLIC acid (FOLATE) tablet 1 mg 02-20 11:45: 00 02-20 10:41 :00 No 1mg 1 mg, Oral, ONCE, 1 dose, On Kym 02/20/22 at 0645, [facility]UR[facility] thiamine (VITAMIN B1) injection 100 mg 02-20 11:45: 00 02-20 10:43 :00 No 100mg 100 mg, Intravenou s, ONCE, 1 dose, On Kym 02/20/22 at 0645, [facility]URYN [facility] LORazepam (ATIVAN) injection 2 mg 02-20 11:45: 00 02-20 10:42 :00 No 2mg 2 mg, Slow IV Push, ONCE, 1 dose, On Kym 02/20/22 at 0645, STAT [facility] ipratropium -albuteroL (DUONEB) 0.5 mg-3 mg(2.5 mg base)/3 mL nebulizer solution 3 mL 02-20 10:30: 00 02-20 09:34 :00 No 3mL 3 mL, Inhalation , ONCE, 1 dose, On [facility] 02/20/22 at 0530, Routine [facility] albuterol 90 mcg/actuati on inhaler 02-20 00:00: 00 Yes [id number] 2{puff} Inhale 2 Puffs every 4 (four) hours as needed for Wheezing or Shortness of Breath. [facility] albuterol 2.5 mg /3 mL (0.083 %) nebulizer solution 02-20 00:00: 00 Yes [id number] 2.5mg Inhale 3 mL every 4 (four) hours. May also nebulize one extra every [address] [facility] budesonide- formoteroL 160-4.5 mcg/actuati on inhaler 02-20 00:00: 00 Yes [id number] 2{puff} Inhale 2 Puffs 2 (two) times daily. [facility] triamterene -hydrochlor othiazid 37.5-25 mg tablet 02-20 00:00: 00 Yes [id number] 1{tbl} Take 1 tablet by mouth daily. [facility] chlordiazeP OXIDE 25 mg capsule 02-20 00:00: 00 Yes [id number] 25mg Take 1 capsule by mouth every 6 (six) hours as needed for Anxiety, Agitation, Heart Rate => [address] [facility] predniSONE 10 mg tablet 02-20 00:00: 00 Yes [id number] TAKE ONE TABLET BY MOUTH DAILY [facility] albuterol 5 mg/mL nebulizer solution 07-16 14:02: 20 Yes 2.5mg Inhale 2.5 mg every 6 (six) hours as needed for Wheezing or Shortness of Breath. [facility] budesonide- formoterol 160-4.5 mcg/actuati on inhaler 07-16 00:00: 00 Yes 2{puff} Inhale 2 Puffs 2 (two) times daily. [facility] albuterol 2.5 mg /3 mL (0.083 %) nebulizer solution 07-16 00:00: 00 Yes 2.5mg Inhale 3 mL every 4 (four) hours as needed for Wheezing or Shortness of Breath. [facility] triamterene -hydrochlor othiazide 37.5-25 mg per capsule 03-26 16:32: 14 Yes 1{capsu le} Take 1 capsule by mouth every morning. [facility] amLODIPine 10 mg tablet 03-26 16:32: 14 Yes 10mg Take 10 mg by mouth at bedtime. [facility] gabapentin 100 mg capsule 03-26 16:32: 14 Yes 100mg Take 100 mg by mouth 2 (two) times daily as needed (MSK pain). [facility] foLIC acid 1 mg tablet 03-26 16:32: 14 Yes 1mg Take 1 mg by mouth daily. [facility] budesonide- formoterol 160-4.5 mcg/actuati on inhaler 03-26 00:00: 00 Yes 2{puff} Inhale 2 Puffs 2 (two) times daily. [facility] Immunizations Ordered Immunization Name Filled Immunization Name Date Status Comments Source SARS-COV-2 COVID-19 PFIZER VACCINE 2021-02-03 00:00:00 Completed [facility] SARS-COV-2 COVID-19 PFIZER VACCINE 2021-02-03 00:00:00 Completed [facility] SARS-COV-2 COVID-19 PFIZER VACCINE 2021-02-03 00:00:00 Completed [facility] SARS-COV-2 COVID-19 PFIZER VACCINE 2021-01-13 00:00:00 Completed [facility] SARS-COV-2 COVID-19 PFIZER VACCINE 2021-01-13 00:00:00 Completed [facility] SARS-COV-2 COVID-19 PFIZER VACCINE 2021-01-13 00:00:00 Completed [facility] Pneumococcal Polysaccharide, PPSV23 (PNEUMOVAX) 2018-03-26 00:00:00 Completed [facility] Influenza Virus Vaccine Quad IM 3+ YRS 2018-03-26 00:00:00 Completed [facility] Pneumococcal Polysaccharide, PPSV23 (PNEUMOVAX) 2018-03-26 00:00:00 Completed [facility] Influenza Virus Vaccine Quad IM 3+ YRS 2018-03-26 00:00:00 Completed [facility] Pneumococcal Polysaccharide, PPSV23 (PNEUMOVAX) 2018-03-26 00:00:00 Completed [facility] Influenza Virus Vaccine Quad IM 3+ YRS 2018-03-26 00:00:00 Completed [facility] Pneumococcal Polysaccharide, PPSV23 (PNEUMOVAX) Unknown Completed [facility] Influenza Virus Vaccine Quad IM 3+ YRS Unknown Completed [facility] SARS-COV-2 COVID-19 PFIZER VACCINE Unknown Completed [facility] SARS-COV-2 COVID-19 PFIZER VACCINE Unknown Completed [facility] Pneumococcal Polysaccharide, PPSV23 (PNEUMOVAX) Unknown Completed [facility] Influenza Virus Vaccine Quad IM 3+ YRS Unknown Completed [facility] SARS-COV-2 COVID-19 PFIZER VACCINE Unknown Completed [facility] SARS-COV-2 COVID-19 PFIZER VACCINE Unknown Completed [facility] Pneumococcal Polysaccharide, PPSV23 (PNEUMOVAX) Unknown Completed [facility] Influenza Virus Vaccine Quad IM 3+ YRS Unknown Completed [facility] SARS-COV-2 COVID-19 PFIZER VACCINE Unknown Completed [facility] SARS-COV-2 COVID-19 PFIZER VACCINE Unknown Completed [facility] Pneumococcal Polysaccharide, PPSV23 (PNEUMOVAX) Unknown Completed [facility] Influenza Virus Vaccine Quad IM 3+ YRS Unknown Completed [facility] SARS-COV-2 COVID-19 PFIZER VACCINE Unknown Completed [facility] SARS-COV-2 COVID-19 PFIZER VACCINE Unknown Completed [facility] Pneumococcal Polysaccharide, PPSV23 (PNEUMOVAX) Unknown Completed [facility] Influenza Virus Vaccine Quad IM 3+ YRS Unknown Completed [facility] SARS-COV-2 COVID-19 PFIZER VACCINE Unknown Completed [facility] SARS-COV-2 COVID-19 PFIZER VACCINE Unknown Completed [facility] Pneumococcal Polysaccharide, PPSV23 (PNEUMOVAX) Unknown Completed [facility] Influenza Virus Vaccine Quad IM 3+ YRS Unknown Completed [facility] SARS-COV-2 COVID-19 PFIZER VACCINE Unknown Completed [facility] SARS-COV-2 COVID-19 PFIZER VACCINE Unknown Completed [facility] Pneumococcal Polysaccharide, PPSV23 (PNEUMOVAX) Unknown Completed [facility] Influenza Virus Vaccine Quad IM 3+ YRS Unknown Completed [facility] SARS-COV-2 COVID-19 PFIZER VACCINE Unknown Completed [facility] SARS-COV-2 COVID-19 PFIZER VACCINE Unknown Completed [facility] Vital Signs Vital Name Observation Time Observation Value Comments S ource Systolic blood pressure 2024-02-09 01:54:05 150 mm[Hg] [facility] Diastolic blood pressure 2024-02-09 01:54:05 91 mm[Hg] [facility] Heart rate 2024-02-09 01:54:05 87 /min [facility] Respiratory rate 2024-02-09 01:54:05 17 /min [facility] Oxygen saturation in Arterial blood by Pulse oximetry 2024-02-09 01:54:05 93 /min [facility] Body temperature 2024-02-09 01:45:00 36.67 Debbie [facility] Body height 2024-02-09 01:45:00 162.6 cm [facility] Body weight 2024-02-09 01:45:00 81.194 kg [facility] BMI 2024-02-09 01:45:00 30.73 kg/m2 [facility] Respiratory rate 2024-02-08 21:00:00 18 /min [facility] Oxygen saturation in Arterial blood by Pulse oximetry 2024-02-08 21:00:00 96 /min [facility] Systolic blood pressure 2024-02-08 20:27:00 164 mm[Hg] [facility] Diastolic blood pressure 2024-02-08 20:27:00 90 mm[Hg] [facility] Heart rate 2024-02-08 20:27:00 83 /[facility] 2024-02-08 19:12:00 36.83 Debbie [facility] Body height 2024-02-08 19:12:00 162.6 cm [facility] Body weight 2024-02-08 19:12:00 81.194 kg [facility] BMI 2024-02-08 19:12:00 30.73 kg/m2 [facility] Heart rate 2024-01-14 12:15:00 98 /min [facility] Body temperature 2024-01-14 12:15:00 36.56 Debbie [facility] Respiratory rate 2024-01-14 12:15:00 14 /min [facility] Oxygen saturation in Arterial blood by Pulse oximetry 2024-01-14 12:15:00 95 /min [facility] Systolic blood pressure 2024-01-14 12:00:00 140 mm[Hg] [facility] Diastolic blood pressure 2024-01-14 12:00:00 90 mm[Hg] [facility] Body height 2024-01-14 10:51:00 162.6 cm [facility] Body weight 2024-01-14 10:51:00 81.194 kg [facility] BMI 2024-01-14 10:51:00 30.73 kg/m2 [facility] Systolic blood pressure 2023-12-23 05:02:00 133 mm[Hg] [facility] Diastolic blood pressure 2023-12-23 05:02:00 84 mm[Hg] [facility] Heart rate 2023-12-23 05:02:00 78 /min [facility] Body temperature 2023-12-23 05:02:00 36.17 Debbie [facility] Respiratory rate 2023-12-23 05:02:00 17 /min [facility] Oxygen saturation in Arterial blood by Pulse oximetry 2023-12-23 05:02:00 91 /min [facility] Body height 2023-12-23 03:45:00 162.6 cm [facility] Body weight 2023-12-23 03:45:00 81.194 kg [facility] BMI 2023-12-23 03:45:00 30.73 kg/m2 [facility] Systolic blood pressure 2023-12-22 02:08:00 143 mm[Hg] [facility] Diastolic blood pressure 2023-12-22 02:08:00 92 mm[Hg] [facility] Heart rate 2023-12-22 02:08:00 81 /min [facility] Respiratory rate 2023-12-22 02:08:00 13 /min [facility] Oxygen saturation in Arterial blood by Pulse oximetry 2023-12-22 02:08:00 95 /min [facility] Body temperature 2023-12-22 01:33:00 36.72 Debbie [facility] Body height 2023-12-22 01:33:00 162.6 cm [facility] Body weight 2023-12-22 01:33:00 81.239 kg [facility] BMI 2023-12-22 01:33:00 30.74 kg/m2 [facility] Systolic blood pressure 2023-11-11 02:00:00 127 mm[Hg] [facility] Diastolic blood pressure 2023-11-11 02:00:00 87 mm[Hg] [facility] Heart rate 2023-11-11 02:00:00 79 /min [facility] Respiratory rate 2023-11-11 02:00:00 20 /min [facility] Oxygen saturation in Arterial blood by Pulse oximetry 2023-11-11 02:00:00 98 /min [facility] Body temperature 2023-11-11 01:31:00 36.28 Debbie [facility] Body height 2023-11-11 01:31:00 162.6 cm [facility] Body weight 2023-11-11 01:31:00 79.379 kg [facility] BMI 2023-11-11 01:31:00 30.04 kg/m2 [facility] Systolic blood pressure 2023-10-27 06:54:00 133 mm[Hg] [facility] Diastolic blood pressure 2023-10-27 06:54:00 94 mm[Hg] [facility] Heart rate 2023-10-27 06:54:00 95 /min [facility] Body temperature 2023-10-27 06:54:00 36.44 Debbie [facility] [facility] [place] [facility] rate 2023-10-27 06:54:00 22 /min [facility] Body height 2023-10-27 06:54:00 162.6 cm [facility] Body weight 2023-10-27 06:54:00 78.472 kg [facility] BMI 2023-10-27 06:54:00 29.70 kg/m2 [facility] Oxygen saturation in Arterial blood by Pulse oximetry 2023-10-27 06:54:00 94 /min [facility] Systolic blood pressure 2022-10-14 19:43:00 111 mm[Hg] [facility] Diastolic blood pressure 2022-10-14 19:43:00 74 mm[Hg] [facility] Heart rate 2022-10-14 19:43:00 98 /min [facility] Body temperature 2022-10-14 19:43:00 36.39 Debbie [facility] Respiratory rate 2022-10-14 19:43:00 22 /min [facility] Oxygen saturation in Arterial blood by Pulse oximetry 2022-10-14 19:43:00 94 /min [facility] Body height 2022-10-14 16:13:00 162.6 cm [facility] Body weight 2022-10-14 16:13:00 81.647 kg [facility] BMI 2022-10-14 16:13:00 30.90 kg/m2 [facility] Systolic blood pressure 2022-03-12 10:13:00 119 mm[Hg] [facility] Diastolic blood pressure 2022-03-12 10:13:00 75 mm[Hg] [facility] Heart rate 2022-03-12 10:13:00 105 /min [facility] Body temperature 2022-03-12 10:13:00 37.28 Debbie [facility] Respiratory rate 2022-03-12 10:13:00 19 /min [facility] Body height 2022-03-12 10:13:00 162.6 cm [facility] Body weight 2022-03-12 10:13:00 99.791 kg [facility] BMI 2022-03-12 10:13:00 37.76 kg/m2 [facility] Oxygen saturation in Arterial blood by Pulse oximetry 2022-03-12 10:13:00 96 /min [facility] Systolic blood pressure 2022-02-20 11:57:00 155 mm[Hg] [facility] Diastolic blood pressure 2022-02-20 11:57:00 88 mm[Hg] [facility] Heart rate 2022-02-20 11:57:00 105 /min [facility] Respiratory rate 2022-02-20 11:57:00 18 /min [facility] Oxygen saturation in Arterial blood by Pulse oximetry 2022-02-20 11:57:00 100 /min [facility] Body temperature 2022-02-20 09:25:00 37 Debbie [facility] Body height 2022-02-20 09:25:00 162.6 cm [facility] Body weight 2022-02-20 09:25:00 96.163 kg [facility] BMI 2022-02-20 09:25:00 36.39 kg/m2 [facility] Procedures Procedure Date / Time Performed Performing Clinician Source AC PANEL 20 + LACTIC ACID 2024-02-08 20:47:00 Christina Villarreal [facility] XR CHEST 1 VW 2024-02-08 19:47:00 Christina Villarreal [facility] URINALYSIS 2024-02-08 19:36:00 [facility] MAGNESIUM 2024-02-08 19:25:00 [facility] TROPONIN I 2024-02-08 19:25:00 Christina Villarreal [facility] COMP. METABOLIC PANEL ([id number]) 2024-02-08 19:25:00 Christina Villarreal [facility] ETHANOL 2024-02-08 19:25:00 Christina Villarreal [facility] CBC WITH DIFF 2024-02-08 19:25:00 Christina Villarreal [facility] N-TERMINAL PRO-BNP 2024-02-08 19:25:00 Christina Villarreal [facility] EKG-12 LEAD 2024-01-14 12:00:51 Jac Navarro [facility] LIPASE 2024-01-14 11:11:00 Jac Navarro [facility] TROPONIN I 2024-01-14 11:11:00 Jac Navarro [facility] COMP. METABOLIC PANEL ([id number]) 2024-01-14 11:11:00 Jac Navarro [facility] ETHANOL 2024-01-14 11:11:00 Jac Navarro [facility] CBC WITH DIFF 2024-01-14 11:11:00 [facility] N-TERMINAL PRO-BNP 2024-01-14 11:11:00 Jac Navarro [facility] COVID-19 (ID NOW RAPID TESTING) 2024-01-14 11:11:00 Jac Navarro [facility] CONSENT/REFUSAL FOR DIAGNOSIS AND TREATMENT 2024-01-14 10:44:32 Doctor Unassigned, [place] [facility] LIPASE 2023-12-23 04:17:00 Tyler Rowe [facility] COMP. METABOLIC PANEL ([id number]) 2023-12-23 04:17:00 Tyler Rowe [facility] CBC WITH DIFF 2023-12-23 04:17:00 [facility] 2023-12-23 04:17:00 Tyler Rowe Un [facility] CONSENT/REFUSAL FOR DIAGNOSIS AND TREATMENT 2023-12-23 03:40:32 Doctor Unassigned, [place] [facility] CT ABDOMEN PELVIS W CONTRAST 2023-12-22 02:31:05 Maciel, Melinda [facility] LIPASE 2023-12-22 01:58:00 [facility] COMP. METABOLIC PANEL ([id number]) 2023-12-22 01:58:00 Melinda Maciel [facility] ETHANOL 2023-12-22 01:58:00 Melinda Maciel [facility] CBC WITH DIFF 2023-12-22 01:58:00 Singer [facility] PROTHROMBIN TIME / INR 2023-12-22 01:58:00 Wali Maciel [facility] URINALYSIS 2023-12-22 01:58:00 [facility] CONSENT/REFUSAL FOR DIAGNOSIS AND TREATMENT 2023-12-22 01:19:14 Doctor Unassigned, [place] [facility] NOTICE OF PRIVACY PRACTICES 2023-11-11 01:24:24 Doctor Unassigned, [place] [facility] CONSENT/REFUSAL FOR DIAGNOSIS AND TREATMENT 2023-11-11 01:23:54 Doctor Unassigned, [place] [facility] COVID-19 (ID NOW RAPID TESTING) 2023-10-27 07:09:00 Jac Navarro [facility] NOTICE OF PRIVACY PRACTICES 2023-10-27 06:49:48 Doctor Unassigned, [place] [facility] CONSENT/REFUSAL FOR DIAGNOSIS AND TREATMENT 2023-10-27 06:47:40 Doctor Unassigned, [place] [facility] CT ABDOMEN PELVIS W CONTRAST 2022-10-14 17:33:00 Singer Melinda [facility] XR CHEST 1 VW 2022-10-14 17:10:37 Singer Melinda [facility] TROPONIN I 2022-10-14 16:37:00 Mel[facility] COMP. METABOLIC PANEL ([id number]) 2022-10-14 16:37:00 Singer [facility] CBC WITH DIFF 2022-10-14 16:37:00 Singer [facility] PROTHROMBIN TIME / INR 2022-10-14 16:37:00 Wali Maciel [facility] URINALYSIS 2022-10-14 16:37:00 Melinda Maciel [facility] N-TERMINAL PRO-BNP 2022-10-14 16:37:00 Melinda Maciel [facility] CONSENT/REFUSAL FOR DIAGNOSIS AND TREATMENT 2022-10-14 15:56:36 Doctor Unassigned, [place] [facility] CONSENT/REFUSAL FOR DIAGNOSIS AND TREATMENT 2022-03-12 10:03:12 Doctor Unassigned, [place] [facility] XR CHEST 1 VW 2022-02-20 09:59:00 Christy Holliday [facility] LIPASE 2022-02-20 09:30:00 Christy Holliday [facility] TROPONIN I 2022-02-20 09:30:00 Christy Holliday [facility] COMP. METABOLIC PANEL ([id number]) 2022-02-20 09:30:00 Christy Holliday [facility] CBC WITH DIFF 2022-02-20 09:30:00 Christy Holliday [facility] N-TERMINAL PRO-BNP 2022-02-20 09:30:00 Christy Holliday [facility] NOTICE OF PRIVACY PRACTICES 2022-02-20 09:15:02 Doctor Unassigned, [place] [facility] CONSENT/REFUSAL FOR DIAGNOSIS AND TREATMENT 2022-02-20 09:14:47 Doctor Unassigned, [place] [facility] Encounters Start Date/Time End Date/Time Encounter Type Admission Type Attending [facility] Care Facility Care Department Encounter ID Source 2024-02-09 13:10:00 2024-02-09 15:14:00 Emergency E URSULA QUINTANILLA [facility] [id number] [facility] 2024-02-08 20:38:00 2024-02-08 21:40:00 Emergency X KEISHA DAVENPORT [facility] ERT [id number] [facility] 2024-02-08 20:38:00 2024-02-08 21:40:00 Emergency Keisha Davenport [facility] 1.2.840.114 350.1.13.10 4.2.7.2.[id number] [facility] 2024-02-08 14:08:00 2024-02-08 17:06:00 Emergency Christina Villarreal [facility] 1.2.840.114 350.1.13.10 4.2.7.2.[id number] [facility] 2024-01-14 04:46:00 2024-01-14 06:23:00 Emergency X JAC NAVARRO [facility] ERT [id number] [facility] 2024-01-14 04:46:00 2024-01-14 06:23:00 Emergency Jac Navarro [facility] 1.2.840.114 350.1.13.10 4.2.7.2.[id number] [facility] 2023-12-22 21:51:00 2023-12-22 23:13:00 Emergency X TYLER ROWE [facility] ERT [id number] [facility] 2023-12-22 21:51:00 2023-12-22 23:13:00 Emergency Tyler Rowe [facility] 1.2.840.114 350.1.13.10 4.2.7.2.[id number] [facility] 2023-12-21 19:36:00 2023-12-21 21:52:00 Emergency X MELINDA MACIEL [facility] ERT [id number] [facility] 2023-12-21 19:36:00 2023-12-21 21:52:00 Emergency Melinda Macile [facility] 1.2.840.114 350.1.13.10 4.2.7.2.[id number] [facility] 2023-11-10 19:29:00 2023-11-10 20:14:00 Emergency X CHRISTY HOLLIDAY [facility] ERT [id number] [facility] 2023-11-10 19:29:00 2023-11-10 20:14:00 Emergency Christy Holliday [facility] 1.2.840.114 350.1.13.10 4.2.7.2.[id number] [facility] 2023-10-27 00:49:00 2023-10-27 01:41:00 Emergency X JAC NAVARRO [facility] ERT [id number] [facility] 2023-10-27 00:49:00 2023-10-27 01:41:00 Emergency Jac Navarro [facility] 1.2.840.114 350.1.13.10 4.2.7.2.[id number] [facility] 2023-07-15 00:00:00 2023-07-15 00:00:00 Outpatient DARIEN LOBO [id number] Maria Elena [facility] 2023-06-16 11:30:00 2023-06-16 11:30:00 Outpatient DARIEN LOBO [id number] Maria Elena [facility] 2023-05-18 00:00:00 2023-05-18 00:00:00 Outpatient MARIA ELENA CHAN [id number] Maria Elena [facility] 2022-10-14 10:07:00 2022-10-14 14:39:00 Emergency MELINDA ROUSE [facility] ERT [id number] [facility] 2022-10-14 10:07:00 2022-10-14 14:39:00 Emergency Melinda Maciel [facility] 1.2.840.114 350.1.13.10 4.2.7.2.[id number] [facility] 2022-03-12 05:15:00 2022-03-12 06:41:00 Emergency X CHRISTY HOLLIDAY [facility] ERT [id number] [facility] 2022-03-12 05:15:00 2022-03-12 06:41:00 Emergency Christy Holliday [facility] 1.2.840.114 350.1.13.10 4.2.7.2.[id number] [facility] 2022-02-20 04:17:00 2022-02-20 07:16:00 Emergency X CHRISTY HOLLIDAY [facility] ERT [id number] [facility] 2022-02-20 04:17:00 2022-02-20 07:16:00 Emergency Christy Holliday [facility] 1.2.840.114 350.1.13.10 4.2.7.2.[id number] [facility] 2021-02-03 11:10:00 2021-02-03 11:10:00 Outpatient R DENISE SUNG [facility] [id number] [facility] 2021-01-13 11:20:00 2021-01-13 11:20:00 Outpatient [facility] [id number] [facility] 2020-11-10 08:20:00 2020-11-10 08:20:00 Outpatient KARLEY ESTRADA [facility] [id number] [facility] Results Test Description Test Time Test Comments Results Result Co mments Source [facility] + Lactic [id number] 20:52:47* Test Item Value Reference Range Interpretation Comme nts PH (test code = 2) 7.39 7.35-7.45 PCO2 (test code = 3941280970) 42 35-45 PO2 (test code = 2380752676) 76 80-100 L HCO3 (test code = 9513932901) 25 22-26 BE (test code = 6945111001) -0.1 -3.0-3.0 THB (test code = 5948102096) 14.3 g/dL 13.5-18.0 %O2HB (test code = 1999058479) 85.8 % 94.0-99.0 L %COHB ART (test code = 7984458718) 9.0 % 0.0-1.5 H %METHB ART (test code = 4071156001) 0.3 % 0.4-1.5 L VOL%O2 ART (test code = 1504110569) 17.3 % 15.0-23.0 NA (test code = 2205365725) 140 mmol/L 135-145 K+ (test code = 7993159698) 4.1 mmol/L 3.5-5.0 AC CA IONZ (test code = 4949860179) 4.50 mg/dL 4.50-5.30 GLUCOSE (test code = 7658228872) 105 mg/dL 70-110 LACTIC ACID (test code = 2589962167) 2.60 mmol/L 0.50-2.20 H Lab Interpretation (test cod e = 25986-4) Abnormal [facility] [id number] 20:34:14* Test Item Value Reference Range Interpretation Comme nts TROPONIN I (test code = 9837060908) 0.008 ng/mL <=0.034 LOUISE (test code = LOUISE) Reference (Normal) [...] of biotin. Lab Interpretation (test code = 66336-3) Normal [facility] Pxz-[id number] 20:31:35* Test Item Value Reference Range Interpretation Comme nts NT-proBNP (test code = 42354-8) 188 pg/mL <=125 LOUISE (test code = LOUISE) Result Indeterminate-Consid er causes of NT-proBNP elevation other than Heart failure such as acute coronary syndrome, pulmonary embolism, pulmonary hypertension, sepsis, stroke, and renal dysfunction. Lab Interpretation (test code = 21239-5) Abnormal [facility] Met[facility] Panel (40786)2024-02-08 20:21:10* Test Item Value Reference Range Interpretation Comme nts NA (test code = 4530986775) 135 mmol/L 135-145 K (test code = 9966047965) 4.5 mmol/L 3.5-5.0 CL (test code = 8154104367) 100 mmol/L 98-108 CO2 TOTAL (test code = 2988986640) 22 mmol/L 23-31 L AGAP (test code = 8853611331) 13 2-16 BUN (test code = 6157547039) 8 mg/dL 7-23 GLUCOSE (test code = 3882477475) 97 mg/dL 70-110 CREATININE (test code = 2160-0) 0.65 mg/dL 0.60-1.25 TOTAL BILI (test code = 1095506188) 0.4 mg/dL 0.1-1.1 CALCIUM (test code = 6287944394) 9.4 mg/dL 8.6-10.6 T PROTEIN (test code = 7097157998) 8.2 g/dL 6.3-8.2 ALBUMIN (test code = 3133028495) 4.7 g/dL 3.5-5.0 ALK PHOS (test code = 6488720578) 76 U/L 34-122 ALTv (test code = 1742-6) 33 U/L 5-50 AST(SGOT) (test code = 4841962539) 54 U/L 13-40 H eGFR (test code = 50600-1) 111.3 mL/min/1.73m2 CKD-EPI eGFR (2020). Assuming creatinine has been stable day-to-day for at least three months, the eGFR indicates Category G1 (>= 90 mL/min/1.73 m2) Lab Interpretation (test code = 72429-6) Abnormal [facility]2024-[facility]-01 20:21:10* Test Item Value Reference Range Interpretation Comme nts MAGNESIUM (test code = 8517390871) 2.1 mg/dL 1.7-2.4 Lab Interpretation (test cod e = 46865-6) Normal [facility] 1 [id number] 20:07:21EXAM: XR CHEST 1 VW COMPARISON: 01/14/2024 HISTORY: sob FINDINGS: Lungs: Slightly hyperexpanded lungswith subtle progression of interstitialprominence. Trace pleural effusions could be present. Heart/Mediastinum: Stable cardiomegaly. Bones and soft tissues: No osseous abnormality is visualized.[facility] Cbc with [id number] 20:04:26* Test Item Value Reference Range Interpretation Comme nts WBC (test code = 6690-2) 11.49 4.20-10.70 H RBC (test code = 789-8) 4.22 4.26-5.52 L HGB (test code = 718-7) 13.8 g/dL 12.2-16.4 HCT (test code = 4544-3) 40.8 % 38.4-49.3 MCV (test code = 787-2) 96.7 fL 81.7-95.6 H MCH (test code = 785-6) 32.7 pg 26.1-32.7 MCHC (test code = 786-4) 33.8 g/dL 31.2-35.0 RDW-SD (test code = 94508-1) 50.5 fL 38.5-51.6 RDW-CV (test code = 788-0) 14.3 % 12.1-15.4 PLT (test code = 777-3) 206 150-328 MPV (test code = 57817-7) 9.1 fL 9.8-13.0 L NRBC/100 WBC (test code = 4237534027) 0.0 0.0-10.0 NRBC x10^3 (test code = 9228072523) See_Comment [Automated [employer] ge] The system which generated this result transmitted reference range: 10*3/?L. The reference range was not used to interpret this result as normal/abnormal. GRAN MAT (NEUT) % (test code = 770-8) 81.0 % IMM GRAN % (test code = 3484580543) 1.20 % LYMPH % (test code = 736-9) 10.9 % MONO % (test code = 5905-5) 6.8 % EOS % (test code = 713-8) 0.0 % BASO % (test code = 706-2) 0.1 % GRAN MAT x10^3(ANC) (test code = 8606348700) 9.31 10*3/uL 1.99-6.95 H IMM GRAN x10^3 (test code = 3280473653) 0.14 10*3/uL 0.00-0.06 H LYMPH x10^3 (test code = 731-0) 1.25 10*3/uL 1.09-3.23 MONO x10^3 (test code = 742-7) 0.78 10*3/uL 0.36-1.02 EOS x10^3 (test code = 711-2) 0.06-0.53 L BASO x10^3 (test code = 704-7) 0.01-0.09 Lab Interpretation (test code = 41543-3) Abnormal [facility] [place]OL[facility] (88128)2023-12-23 04:53:26* Test Item Value Reference Range Interpretation Comme nts NA (test code = 1763405114) 135 mmol/L 135-145 K (test code = 9838172818) 3.2 mmol/L 3.5-5.0 L CL (test code = 1431375310) 104 mmol/L 98-108 CO2 TOTAL (test code = 1068520969) 23 mmol/L 23-31 AGAP (test code = 2546329807) 8 2-16 BUN (test code = 3361506162) 11 mg/dL 7-23 GLUCOSE (test code = 0106091792) 82 mg/dL 70-110 CREATININE (test code = 2160-0) 0.64 mg/dL 0.60-1.25 TOTAL BILI (test code = 4951142471) 0.5 mg/dL 0.1-1.1 CALCIUM (test code = 5536865232) 8.8 mg/dL 8.6-10.6 T PROTEIN (test code = 4456335483) 6.7 g/dL 6.3-8.2 ALBUMIN (test code = 6303707827) 4.1 g/dL 3.5-5.0 ALK PHOS (test code = 6060423804) 46 U/L 34-122 ALTv (test code = 1742-6) 21 U/L 5-50 AST(SGOT) (test code = 4973297201) 43 U/L 13-40 H eGFR (test code = 14722-3) 111.8 mL/min/1.73m2 CKD-EPI eGFR (2020). Assuming creatinine has been stable day-to-day for at least three months, the eGFR indicates Category G1 (>= 90 mL/min/1.73 m2) Lab Interpretation (test code = 15186-4) Abnormal [facility]14 04:53:26* Test Item Value Reference Range Interpretation Comme nts LIPASE (test code = 0760086572) 105 U/L 0-220 Lab Interpretation (test cod e = 08775-4) Normal [facility] WITH [id number] 04:34:24* Test Item Value Reference Range Interpretation [...] 33.0 g/dL 31.2-35.0 RDW-SD (test code = 55441-8) 50.9 fL 38.5-51.6 RDW-CV (test code = 788-0) 13.7 % 12.1-15.4 PLT (test code = 777-3) 232 150-328 MPV (test code = 92326-1) 8.7 fL 9.8-13.0 L NRBC/100 WBC (test code = 6827698195) 0.0 0.0-10.0 NRBC x10^3 (test code = 6772871910) See_Comment [Automated messa ge] The system which generated this result transmitted reference range: 10*3/?L. The reference range was not used to interpret this result as normal/abnormal. GRAN MAT (NEUT) % (test code = 770-8) 58.8 % IMM GRAN % (test code = 3476039886) 0.90 % LYMPH % (test code = 736-9) 27.8 % MONO % (test code = 5905-5) 10.5 % EOS % (test code = 713-8) 1.3 % BASO % (test code = 706-2) 0.7 % GRAN MAT x10^3(ANC) (test code = 2882925704) 5.68 10*3/uL 1.99-6.95 IMM GRAN x10^3 (test code = 8712296725) 0.09 10*3/uL 0.00-0.06 H LYMPH x10^3 (test code = 731-0) 2.69 10*3/uL 1.09-3.23 MONO x10^3 (test code = 742-7) 1.02 10*3/uL 0.36-1.02 EOS x10^3 (test code = 711-2) 0.13 10*3/uL 0.06-0.53 BASO x10^3 (test code = 704-7) 0.07 10*3/uL 0.01-0.09 Lab Interpretation (test code = 87968-5) Abnormal [facility] W [id number] 03:32:43Exam: CT Abdomen and Pelvis With Contrast, [...] acute osseous abnormality.Soft tissues: Small fat-containing inguinal hernias.[facility] AustinEthanol2024-02-13 02:32:24* Test Item Value Reference Range Interpretation Comme nts ALCOHOL (test code = 7554912474) 117 mg/dL LOUISE (test code = LOUISE) <10 Uujctazg54-024 Toxic>100 Depression of [employer]>400 Fatalities Reported [facility] Metabolic Panel (99302)2023-12-22 02:31:43* Test Item Value Reference Range Interpretation Comme nts NA (test code = 9272207931) 133 mmol/L 135-145 L K (test code = 3663756959) 3.3 mmol/L 3.5-5.0 L CL (test code = 9212985734) 102 mmol/L 98-108 CO2 TOTAL (test code = 4613887189) 25 mmol/L 23-31 AGAP (test code = 5805838314) 6 2-16 BUN (test code = 7114160861) 11 mg/dL 7-23 GLUCOSE (test code = 8378480340) 75 mg/dL 70-110 CREATININE (test code = 2174180390) 0.51 mg/dL 0.60-1.25 L TOTAL BILI (test code = 3652966927) 0.5 mg/dL 0.1-1.1 CALCIUM (test code = 6706272142) 8.9 mg/dL 8.6-10.6 T PROTEIN (test code = 7850213342) 7.2 g/dL 6.3-8.2 ALBUMIN (test code = 9585766800) 4.5 g/dL 3.5-5.0 ALK PHOS (test code = 7703317868) 46 U/L 34-122 ALTv (test code = 1742-6) 15 U/L 5-50 AST(SGOT) (test code = 7866709402) 24 U/L 13-40 eGFR (test code = 70258-0) 119.7 mL/min/1.73m2 CKD-EPI eGFR (2020). Assuming creatinine has been stable day-to-day for at least three months, the eGFR indicates Category G1 (>= 90 mL/min/1.73 m2) Lab Interpretation (test code = 20953-9) Abnormal [facility]2024-02-13 02:31:43* Test Item Value Reference Range Interpretation Comme nts LIPASE (test code = 5505051116) 121 U/L 0-220 Lab Interpretation (test cod e = 04626-7) Normal [facility] AustinProthrombin Time / [id number] 02:21:02* Test Item Value Reference Range Interpretation Comme nts PROTIME PATIENT (test code = 5964-2) 10.5 10.1-12.6 INR (test code = 6301-6) 0.9 Normal INR <1.1; Warfarin Therapeutic range 2.0 to 3.0 or 2.5 to 3.5, depending upon the indications. Lab Interpretation (test code = 49727-3) Normal [facility] AustinCbc with [id number] 02:14:04* Test Item Value Reference Range Interpretation [...] 34.0 g/dL 31.2-35.0 RDW-SD (test code = 41267-0) 49.1 fL 38.5-51.6 RDW-CV (test code = 788-0) 13.5 % 12.1-15.4 PLT (test code = 777-3) 260 150-328 MPV (test code = 25292-7) 8.7 fL 9.8-13.0 L NRBC/100 WBC (test code = 4018495421) 0.0 0.0-10.0 NRBC x10^3 (test code = 8560737872) See_Comment [Automated messa ge] The system which generated this result transmitted reference range: 10*3/?L. The reference range was not used to interpret this result as normal/abnormal. GRAN MAT (NEUT) % (test code = 770-8) 64.3 % IMM GRAN % (test code = 7272231881) 0.90 % LYMPH % (test code = 736-9) 24.2 % MONO % (test code = 5905-5) 9.1 % EOS % (test code = 713-8) 0.7 % BASO % (test code = 706-2) 0.8 % GRAN MAT x10^3(ANC) (test code = 2044804730) 8.73 10*3/uL 1.99-6.95 H IMM GRAN x10^3 (test code = 2917558100) 0.12 10*3/uL 0.00-0.06 H LYMPH x10^3 (test code = 731-0) 3.28 10*3/uL 1.09-3.23 H MONO x10^3 (test code = 742-7) 1.23 10*3/uL 0.36-1.02 H EOS x10^3 (test code = 711-2) 0.10 10*3/uL 0.06-0.53 BASO x10^3 (test code = 704-7) 0.11 10*3/uL 0.01-0.09 H Lab Interpretation (test code = 95481-3) Abnormal [facility] [id number] 10:16:22* Test Item Value Reference Range Interpretation Comments TROPONIN I (test code = 0701352843) 0.007 ng/mL See_Comment [Automated message] The system [...] of biotin. Lab Interpretation (test code = 27317-8) [id number] 10:13:01* Test Item Value Reference Range Interpretation Comme nts NT-proBNP (test code = 1542397371) 52 pg/mL See_Comment [Automated message] The system which generated this result transmitted reference range: <=125. The reference range was not used to interpret this result as normal/abnormal. LOUISE (test code = LOUISE) Biotin has been reported to cause a negative bias, interpret results relative to patient's use of biotin. Lab Interpretation (test code = 10988-6) [facility] (06288)2022-02-20 10:04:02* Test Item Value Reference Range Interpretation Comme nts NA (test code = 7165798301) 137 mmol/L 135-145 K (test code = 9090490447) 3.6 mmol/L 3.5-5.0 CL (test code = 8788362779) 99 mmol/L 98-108 CO2 TOTAL (test code = 8297995197) 25 mmol/L 23-31 AGAP (test code = 7721668206) 2-16 BUN (test code = 9754656740) 6 mg/dL 7-23 L GLUCOSE (test code = 2646157815) 88 mg/dL 70-110 CREATININE (test code = 6952425679) 0.55 mg/dL 0.60-1.25 L TOTAL BILI (test code = 7039451624) 0.8 mg/dL 0.1-1.1 CALCIUM (test code = 1009203296) 8.9 mg/dL 8.6-10.6 T PROTEIN (test code = 3389431660) 7.5 g/dL 6.3-8.2 ALBUMIN (test code = 8547502090) 4.8 g/dL 3.5-5.0 ALK PHOS (test code = 4902646768) 113 U/L 34-122 ALTv (test code = 1742-6) 84 U/L 5-50 H AST(SGOT) (test code = 9434814240) 107 U/L 13-40 H eGFR (test code = 9569799860) mL/min/1.73m2 LOUISE (test code = LOUISE) Association [...] imaging tests). Lab Interpretation (test code = 69900-2) [facility] UUWAH8478-95-34 10:03:21* Test Item Value Reference Range Interpretation Comme nts LIPASE (test code = 2912499130) 193 U/L 0-220 Lab Interpretation (test cod e = 10281-9) Normal [facility] WITH FPAN8025-32-62 09:39:17* Test Item Value Reference Range Interpretation [...] g/dL 31.2-35.0 H RDW-SD (test code = 78475-5) 44.4 fL 38.5-51.6 RDW-CV (test code = 788-0) 11.9 % 12.1-15.4 L PLT (test code = 777-3) See_Comment [Automated messa ge] The system which generated this result transmitted reference range: 150 - 328 10*3/?L. The reference range was not used to interpret this result as normal/abnormal. MPV (test code = 09912-4) 9.2 fL 9.8-13.0 L NRBC/100 WBC (test code = 9863351176) See_Comment [Automated [employer] ssage] The system which generated this result transmitted reference range: 0.0 - 10.0 /100 WBCs. The reference range was not used to interpret this result as normal/abnormal. NRBC x10^3 (test code = 8703542035) <0.01 See_Comment [Automated messa ge] The system which generated this result transmitted reference range: 10*3/?L. The reference range was not used to interpret this result as normal/abnormal. GRAN MAT (NEUT) % (test code = 770-8) 69.9 % IMM GRAN % (test code = 1750414369) 1.50 % LYMPH % (test code = 736-9) 18.9 % MONO % (test code = 5905-5) 7.0 % EOS % (test code = 713-8) 1.9 % BASO % (test code = 706-2) 0.8 % GRAN MAT x10^3(ANC) (test code = 5985425208) 7.15 10*3/uL 1.99-6.95 H IMM GRAN x10^3 (test code = 2357701761) 0.15 10*3/uL 0.00-0.06 H LYMPH x10^3 (test code = 731-0) 1.93 10*3/uL 1.09-3.23 MONO x10^3 (test code = 742-7) 0.72 10*3/uL 0.36-1.02 EOS x10^3 (test code = 711-2) 0.19 10*3/uL 0.06-0.53 BASO x10^3 (test code = 704-7) 0.08 10*3/uL 0.01-0.09 Lab Interpretation (test code = 92169-2) Abnormal [facility] Notes Date/Time Note Provider Source 2024-02-08 21:37:56 PKmcSvHF30uni1sjsdGcyxG89J+ZlkfFHgJ le/KHv4ZR9TLLT9+V70V+vj6T3+dt3162-1 02-07T21:37:56 Pt left AMA 38587-2Mfgibtmym department SdrlBD8986-47-35J75:38:11Emergency department NoteTXT1.2.840.111210.1.13.104.2.7. 2.960072|[id number] for patient ltra16635-4ZttyOQKIGBORGKYNaixsrrjc C-CDA narrative asve785449108Msipt M Cristian RNUT[id number] 0EERIREZCSMHJVCLYDKUJOQ7519-81-31D0 1:38:111.2.840.380606.1.72.3.15|1.2 .840.156028.1.13.104.2.7.2.727879_2 [id number] Kylie Raul Foster RN [facility] 2024-02-08 21:32:00 X924dLahYE/TsUMccTGGtajkwoDYWY8AtiX 9g/T50OyPaVgaNK6IzQOLYLS2w2tO9248-4 02-07T21:32:00 Patient leaving AMA after self removing his IV and bleeding all over the floor. Pt unhappy with toradol order.discussed risks of leaving against medical advice/final dispositon, Dr. Davenport aware and notified of patient's decision.Patient encouraged to seek medical attention for any new/prolonged/worsening of symptoms and stressed importance of follow up with a medical provider as soon as possible. AMA form explained, patient signed form.Patient leaving ambulatory with steady gait, [place] 99717-3Brrrrrdci department VqskJI9693-08-83H48:40:32[facility] department NoteTXT1.2.840.428779.1.13.104.2.7. 2.810605|[id number] for patient pisk67150-8LdjqNKSMZVAKVNZAzdlsvuih C-CDA narrative textUT37 [address] [id number] 4SAUSBGMTIXJGSDSAIEUSOZ9403-42-18A4 1:40:321.2.840.060734.1.72.3.15|1.2 .840.371779.1.13.104.2.7.2.727879_2 [id number] [facility] 2024-02-08 20:54:38 mR20SmJ+sO0Ee5cQ0bpQKjWa/bCPCdxwEFA UvrGntdNCouoZGLBUuq6Td2Ss2Hhx8835-5 02-07T20:54:38 Pt states he uses O2 at home, portable O2 is broken 80797-8Tztetybdt department FiacQT9825-86-34B25:55:13[facility] department NoteTXT1.2.840.411577.1.13.104.2.7. 2.950365|[id number] for patient wbsn76037-4GzqxVSZDSOYINXMHcezmcqoa C-CDA narrative [id number] 0VOEZDMFTEKHLGCKNFIGNTZ3062-35-51Z4 0:55:131.2.840.462597.1.72.3.15|1.2 .840.489727.1.13.104.2.7.2.727879_2 [id number] [facility] 2024-02-08 20:51:11 el/w2YTNZ+wDlpSiwHqacGdy09FH/x7DhYW 29edWx5rUj7odfbZ1vpPhHz+57iDv5628-2 02-07T20:51:11 Pt ambulates with cane 96755-7Nojufvfyq department EyavNO0094-12-34D96:51:26[facility] department NoteTXT1.2.840.976025.1.13.104.2.7. 2.506241|2142737465WXBjyduldli for patient qoeg45724-5NmxnWEMBDDVVUESFznhyqsov C-CDA narrative text[address] ZgxoAmerpunnfLfluckdclBHOR877698411 8TEIZQEGFQIZMFACIUZXZCI9759-54-81T0 0:51:261.2.840.709008.1.72.3.15|1.2 .840.610149.1.13.104.2.7.2.727879_2 [id number] [facility] 2024-02-08 20:43:13 2OnwtstsYIlShBYBjG003jR/9GbsgI+2tFK wSCRRa/jxCVb/9ffxnwQNTmp/nPVg0059-8 02-07T20:43:13 CC: Pt arrives SOB after leaving [facility] earlier in the shift. He reports he is here for "I have osteoporosis in my left hip since 2008 caused by my prednisone. I'm on it the rest of my life. The pain is so bad that I take 8-10 BC powders and alcohol to manage."PMHx: see chartAwake, alert, oriented, resp reg labored, skin warm, color zane for race, moves all ext without difficulty, amb with steady gait"Before I got here I ate 3 BC powders and drank 3 beers." 96975-5Zzxpweftd department Triage rttzND9251-43-11O31:48:36[facility] Triage noteTXT1.2.840.769375.1.13.104.2.7. 2.984804|[id number] for patient gqva48925-7Jieztffpf department NoteLNNARRATIVEFormatted C-CDA narrative vjcu135896841Nugixm R Shehadeh RN[address] JivtYqnkbhletAjyruniavRWSD097093597 0PCDNAUVDUSJRRTPHYXJIQO5521-25-83C1 0:48:361.2.840.765213.1.72.3.15|1.2 .840.404809.1.13.104.2.7.2.727879_2 [id number] Leah King RN [facility] 2024-02-08 17:04:05 o6Kegeb+tCt8YjMZCJuNKHZeeVtYO5se5N+ vXQOnp/Gafi/Zp4HgYb9WBWf6YqSc3732-2 7:04:05 Patient walked to the nurses station and stated "I have another emergency and I have to leave right now. I need this IV taken out immediately."Encouraged patient to stay and he stated "I have to leave immediately and I don't want to take this out myself" IV d/c at this time and patient ambulated out of the department with a steady gait. 87690-9Zqqfxefsa department LdfyNW2844-77-56V83:05:22[facility] department NoteTXT1.2.840.111689.1.13.104.2.7. 2.573310|[id number] for patient jgjy54687-6EmczCRLPIHORZIPYefnaxxih C-CDA narrative fbgv656164098Txbk M Hayes RNUT[address] StreetPqwjFalcortzaXdlpknzjnONXX641104389 4YCRQUUVTGISODJZINLJSZA0234-81-16J3 7:05:221.2.840.874336.1.72.3.15|1.2 .840.487488.1.13.104.2.7.2.727879_2 [id number] Allison Zhang RN [facility] 2024-02-08 14:23:02 uvrtwjUkvmYsdAfQ1l7upMg0eD8I/Z3pRfm uswrhKjDYJwQ/vQiRprOn3NkRmxLc3016-2 02-07T14:23:02 Pt ambulates with a cane 46052-6Pkdnbehsh department LxaxXI3722-98-03F78:23:12[facility] department NoteTXT1.2.840.751811.1.13.104.2.7. 2.193141|3509036434HYWduqpfilk for patient rvbp62672-6OghxOOLBMHXEXMZGzrlzmjzy C-CDA narrative bcpo990230513GfbkkKylie Foster RN[address] JjdzAbqoiyegsRrziuxwxnYKJZ392254886 9AXDWNPJPHAWGMMBRDOMFYJ2320-59-88E4 4:23:121.2.840.207218.1.72.3.15|1.2 .840.116118.1.13.104.2.7.2.727879_2 [id number] Kylie Foster RN [facility] 2024-02-08 14:13:15 H1r613/42ToVE7Mq8niziqwLuqPRcMtEiix EKuwalDL3FX2H8KkBVq0KQcenUOTr5045-1 02-07T14:13:15 Pt has taken 8-packets of BC powder. Has COPD, uses 3L home O2. Here today because his shortness of breath has worsened. Takes daily prednisone and states, "I'm not gonna lie to you ma'am. I've been on prednisone for 5 years, high doses and it causes osteoporosis. My whole left side is shot and the only thing that helps it is BC powder so I know I take too much but it's the only thing that helps." Face is flushed. 92710-7Lczyxlqdc department Triage xtlcRH1292-31-10Q97:17:26[facility] department Triage noteTXT1.2.840.436108.1.13.104.2.7. 2.965315|[id number] for patient yrdn23155-6Zqgrwvini department NoteLNNARRATIVEFormatted C-CDA narrative viwo809560252Htujbqs Traci RNUT[address] PxzgWuumcmsnnAohkpfuhvBAXR640330703 7PWGEJBRWZZRISQFZZAAWGE7600-87-44F7 4:17:261.2.840.557984.1.72.3.15|1.2 .840.314797.1.13.104.2.7.2.727879_2 [id number] Hali Traci MACHUCA [facility] 2024-01-14 06:16:25 1Gzz8PtyHt0Pp6h8nlPNFkd9Li9J/FhSiR0 GN7iOM3ccwkdRpd+pScD2bEuxwrHs1458-0 06:16:25 Pt given printed and verbal discharge instructions [...] w/d, pt leaving in no apparent distress, 35474-5Cnkhenura department IbydLY8841-58-65M00:17:20[facility] department NoteTXT1.2.840.734588.1.13.104.2.7. 2.411060|4178211231NGPdhlgbvlx for patient mvai83630-8PdglHKBQJRUEMJPLidcqjept C-CDA narrative textUT[address] StreetTXTX775[address] 0KNIFBXDXIEIYDIQTKXMXME6082-15-70E9 6:17:201.2.840.564404.1.72.3.15|1.2 .840.214556.1.13.104.2.7.2.727879_2 [id number] [facility] 2024-01-14 04:49:43 n1PRhtlXIUgXx5f6taE1QVAvve0Hd+E0JFo 8d9ET4iRd0cicTAxxTxxNz5xmNjVl9873-4 04:49:43 CC: "My COPD is acting up [...] ext without difficulty, amb with steady gait 84221-0Tbldhammq department Triage dmoeHG0022-58-81H74:55:49[facility] department Triage noteTXT1.2.840.798523.1.13.104.2.7. 2.589660|[id number] for patient jxbq70223-9Vemnpypee department NoteLNNARRATIVEFormatted C-CDA narrative imix261414967Hscefm R Shehadeh RNUT[id number] 4UCATHJFHPOHTPRHSKHIXXT5397-12-39O9 4:55:491.2.840.358468.1.72.3.15|1.2 .840.824365.1.13.104.2.7.2.727879_2 [id number] Leah King RN [facility] - Health 2024-01-14 04:43:00 Tfq32uhyY7ssNAvVvbBcd1a4OnKpeh6U4ko djsmrB+7ikv2AnlkmpyLo51sCb0b/07T04:43:00Associated Order(s): EKG-12 Lead ROUTINE ONCEPre-Procedure Diagnose(s): Chest pain, unspecified typePost-Procedure Diagnose(s): Chest pain, unspecified type [facility] Emergency Department NotePatient Name: Randy BrionesDate of : 1970 53 year old maleTreatment Room: [facility]/SQ7Bbrrbua Record Number: [id number] Care Physician: Adrianna King Escorted by: Family [5]Mode of Arrival: Personal means [1]EMS Treatment 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 METABOLIC PANEL (81961) - AbnormalResult Value Ref RangeNA 138 135 [...] 49 (*) 13 - 40 U/LeGFR 93.3 mL/min/1.63d9YTD WITH DIFF - AbnormalWBC 11.59 (*) 4.20 [...] 220 U/LCOVID-19 (ID NOW RAPID TESTING) - PqqsunBINN-TpR-1 Rapid ID NOW Not Detected Not DetectedETHANOLALCOHOL 62 mg/dLEKG:If EKG completed, see Procedure Note.Orders and Treatments:Orders Placed This EncounterProcedures XR CHEST 1 VW TROPONIN I COMP. METABOLIC PANEL (01037) LIPASE, SERUM CBC WITH DIFF N-Terminal Pro-Bnp Ethanol COVID-19 (ID NOW TESTING) Lab Only COVID Interpretation O2 Per ProtocolOrders Placed This EncounterMedications morpHINE (4 mg/mL) injection 4 mg ondansetron (ZOFRAN (PF)) injection 4 mg ipratropium-albuteroL (DUONEB) 0.5 mg-3 mg(2.5 mg base)/3 mL nebulizer solution 3 mLFirst Provider Eval:ED EventsDate/Time Event User Scsktnph30/07/24 0510 Medical Screening Begins JAC NAVARRO MD --01/14/24 0510 First Provider Evaluation JAC NAVARRO MD --ED COURSEDiagnosis/Impression as of 01/14/24 0605Chest pain, unspecified typeBronchitisProcedures:EKG-12 Lead ROUTINE ONCEDate/Time: 01/14/2024 5:24 AMPerformed by: Jac Navarro MDAuthorized by: Jac Navarro MDECG interpreted by ED Physician in the absence of a knuckle strap sewer: yesPrevious ECG:Previous ECG: Compared to currentSimilarity: No [...] medications on fileFollow-up:Electronically signed by:Jac Navarro MD01/14/24 0600 25116-6Ajcpmdygs Emergency department CjsvNW4530-66-67B45:00:50Physician Emergency department NoteTXT1.2.840.572448.1.13.104.2.7. 2.541821|[id number] for patient furz82832-3Psusstmtr department NoteLNNARRATIVEFormatted C-CDA narrative textUT[address] CuwkIsz[id number] 3IPNNXKWTUJRFJVNCEAPYRW2252-38-71V5 6:00:501.2.840.257294.1.72.3.15|1.2 .840.017368.1.13.104.2.7.2.727879_2 [id number] [facility] 2023-12-22 23:12:16 OfR1+uuPckNogR5ZQzRB3zjZWqh3BuQGzE4 pUAnYfovwUTUjKpOb56y5VeXpv2xI8206-4 2T23:12:16 Pt given printed and verbal discharge instructions [...] with steady gait, in no apparent distress, 57553-2Qgmgrtooo department UvcgZO4253-98-28V22:13:50Emergency department NoteTXT1.2.840.433788.1.13.104.2.7. 2.442766|[id number] for patient mpdl71163-9WmyrTZAMRCJVABZLfuspwpng C-CDA narrative rovl332886640QbhbfMary Magaña RNUT[address] ZhivOvbccoitsRpeggttboQMEJ064640970 5XFZCJDYXOADDBKEHOVBZQD5573-98-16N3 3:13:501.2.840.744866.1.72.3.15|1.2 .840.694857.1.13.104.2.7.2.727879_2 [id number] Mary Magaña RN [facility] 2023-12-22 21:41:55 zBZoP6EypN41KpVhvrxueHUiMLZVUUkxUAt bGSZNMkczaoBvmWjcc4q+8+ENU6N44172-9 12-22T21:41:55 Pt arrives ambulatory to ED reporting bleeding with stools and 10/10 abdominal pain. States he was here last night but had to leave before receiving results d/t having to work. Says the pain became worse so he came back in. 04863-8Csgfqtvwv department Triage rhdcVO8597-54-96B34:48:52[facility] department Triage noteTXT1.2.840.450406.1.13.104.2.7. 2.425807|[id number] for patient tsiq29178-1Wiewbmjji department NoteLNNARRATIVEFormatted C-CDA narrative cjgi019434067Chwcgv L Williams RN[address] HhytWfrsouvxeNfjjszxwvADNK235114097 1XMKEDQKQZRIYXGJTCBTNMY5176-22-39V4 1:48:521.2.840.887258.1.72.3.15|1.2 .840.554716.1.13.104.2.7.2.727879_2 [id number] Leah Lizama RN [facility] 2023-12-21 21:31:00 Qi0QkThJR+c3KiO0kF/VI0D6Xqvw61Aa4a6 11zog+YBwWBJKJ9M+xjg8Fo7h5c5D8638-6 12-21T21:31:00 Patient leaving AMA,discussed risks of leaving against medical advice, Dr. Maciel aware and notified of patient's decision.Patient encouraged to seek medical attention for any new/prolonged/worsening of symptoms and stressed importance of follow up with a medical provider as soon as possible. AMA form explained, patient signed form.IV d'cd, dressing to site.Patient leaving ambulatory with steady gait, appears in no distress. 92029-1Rsezaguec department XukbGX8673-84-86C40:38:39[facility] department NoteTXT1.2.840.612426.1.13.104.2.7. 2.470097|[id number] for patient ccdq90329-9GuupVVBMWWLTIXDPhwnsgflj C-CDA narrative rxdp944356459RrlfiMary Magaña RNUT[id number] 1QTWZNIFIVZDDOWLESRHRDM8938-60-33U0 1:38:391.2.840.291422.1.72.3.15|1.2 .840.810286.1.13.104.2.7.2.727879_2 [id number] Mary Magaña RN [facility] 2023-12-21 21:30:00 5Pw6Kf+EauZ5PUK83gcklZsvBcVuCIHGphy 1x3LR+yjSIP9fV5UF40hDV/xoUscO7600-1 12-21T21:30:00 Pt wished to leave AMA. Pt states " yall were wonderful but 3am come real early." 65639-1Wrrvgyabf department SjbwLO2672-39-89S12:36:58[facility] department NoteTXT1.2.840.954044.1.13.104.2.7. 2.303727|[id number] for patient kghx37675-3JcjlAIEVKUHLUANAvmbornnu C-CDA narrative text[id number] 6QMCERVEGMCOTSZYLJQZAYQ0004-56-17V9 1:36:581.2.840.694354.1.72.3.15|1.2 .840.216808.1.13.104.2.7.2.727879_2 [id number] [facility] 2023-12-21 21:26:22 BLtdwHfGhbQjfcES8n1IxHcNjROBavmZiLS 4CXPnJ9oRYj2qlm3CWwIR6m0GvXfu7229-7 12-21T21:26:22 Pt asking to go outside and smoke, wants to go home and eat. Pt educated on risks of leaving AMA. Provider informed pt is in pain. 63505-4Herhgubmd department DzwrQO3214-68-80X27:33:35[facility] department NoteTXT1.2.840.996068.1.13.104.2.7. 2.577374|[id number] for patient jiel34699-6VbtsVRNYPAVXIBLPaddkpbyu C-CDA narrative iwfn417743415Igwxqb R Shehadeh RN[address] VyreOtafzsmlbWgarequdwCVYB776289699 0AXLCTEKHUUPHULFMYMPKCM3258-35-89Q8 1:33:351.2.840.626504.1.72.3.15|1.2 .840.341103.1.13.104.2.7.2.727879_2 [id number] Leah King RN [facility] 2023-12-21 19:31:50 7ux9+1lzUOp8JgefL0fLL2eYNpZNt3vWkdm RdCYwxM5zaPoKj3gGcBQr3kp+VIuI0959-8 12-21T19:31:50 Pt arrived ambulatory with complaints of bright red rectal bleeding and generalized abdominal pain this afternoon. Pt states his stool was normal consistency but continuous bright red blood. 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 States he vomits all the time but not something new today. 11076-9Athjuptbk department Triage ozvtFS2935-42-77X49:33:28[facility] Triage noteTXT1.2.840.241007.1.13.104.2.7. 2.601376|[id number] for patient frea83727-7Xaevcdrux department NoteLNNARRATIVEFormatted C-CDA narrative wumf985902044Hdqpnq D Roman RN[id number] 5XKEOULDINBHNUVZYVFETWU8583-06-82Q3 9:33:281.2.840.998896.1.72.3.15|1.2 .840.434823.1.13.104.2.7.2.727879_2 [id number] Gabi Esqueda RN [facility] 2023-11-10 20:13:39 cpVydYQBXi8QdbMVLRc4TkqA80a/TlPnCn4 hne/YT353zE4ACkReWAn4bsoQIxhS6350-6 11-10T20:13:39 Pt requesting to leave AMA. ERP notified. Pt counseled to remain, risks of leaving AMA including discussed with pt. Pt continued to decline further ER evaluation at this time. AMA papers signed, witnessed, and placed on patient's chart. Pt left ambulatory. VS stable, no ataxia noted, GCS 15, A&Ox4. 21293-8Uhqlqdwcn department SywpBW6512-37-57G50:13:52[facility] department NoteTXT1.2.840.735494.1.13.104.2.7. 2.846609|[id number] for patient zwov50910-0JmcpGKLAKONGLVELknbtbngd C-CDA narrative vmvv938494257Hmpums R Goodrich RN[id number] 3ERZOQYUJGMRMWNTSXUAZBT4991-58-21U5 0:13:521.2.840.347625.1.72.3.15|1.2 .840.517040.1.13.104.2.7.2.727879_1 [id number] Briseida Medrano RN [facility] 2023-11-10 19:30:29 o2Or5/OoL8z5K9xjl+7HHtdmVtxF/EYpEtf AMPYunT4LLsK/tdIx52jEd9WB4s1j8934-9 11-10T19:30:29 Patient arrived to ED c/o SOB and COPD exacerbation. Symptoms started this morning. Patient wears 3L NC at home. Patient is a smoker. Patient states having the chills, diarrhea, and vomiting. States having sharp pains in chest from coughing. 83067-4Gaynxvjbr department Triage logmME6932-34-40U94:35:27[facility] department Triage noteTXT1.2.840.527829.1.13.104.2.7. 2.119825|[id number] for patient trdd13951-4Bzyxzagde department NoteLNNARRATIVEFormatted C-CDA narrative hgmh825083394Mqzkrm-Etqbp McInnis RNUT[address] StreetXkvaTqxjtlawkAggxpjchyIOVR203451577 9ORZMXUHFJLSFAMCCYOGMHP0437-24-83E9 9:35:271.2.840.127663.1.72.3.15|1.2 .840.490609.1.13.104.2.7.2.727879_1 [id number] Sreedhar Gomez RN [facility]
[2024-02-10] MEDS ORDERED: LORAZEPAM 1 MG TABLET ONE (00:57)
[2024-02-10] MEDS ORDERED: IPRATROPIUM BROM 0.5MG/2.5ML ONE (00:57)
[2024-02-10] MEDS ORDERED: METHYLPREDNISOLONE 125 MG INJ ONE (00:57)
[2024-02-10] MEDS ORDERED: ALBUTEROL 2.5 MG/3 ML NEB SOL ONE (00:57)
[2024-02-10 01:19] LABS: PT Prothrombin Time 9.7 SECONDS (9.5-12.5); Protime INR 0.88
[2024-02-10 01:20] LABS: Absolute Basophils 0.1 K/uL (0-0.5); Absolute Lymphocytes (CBC) 0.6 K/uL (0.7-4.9); Absolute Monocytes 0.4 K/uL (0.1-1.3); Absolute Neutrophil 6.6 K/uL (1.8-8.0); Basophils % 0.7 % (0-1.3); Hematocrit 39.8 % (39.6-49.0); Hemoglobin 13.6 g/dL (13.6-17.9); MCH 33.5 pg (27.0-35.0); MCHC 34.1 g/dL (32.0-36.0); MCV 98.3 fL (80-100); MPV 7.3 fL (7.6-11.3); Monocytes % 4.6 % (3.3-12.3); Neutrophils % 86.7 % (41.7-73.7); Nucleated Red Blood Cells % 0.1 % (0-0); Platelets 171 thou/uL (152-406); RBC Red Blood Cell Count 4.05 M/uL (4.33-5.43); Red Cell Distribution Width 15.2 % (12.1-15.2)
[2024-02-10] MEDS ORDERED: MORPHINE 4 MG/ML SYR ONE (01:35)
[2024-02-10] MEDS ORDERED: KETOROLAC 30 MG/ML INJ ONE (01:35)
[2024-02-10] MEDS ORDERED: ONDANSETRON 4 MG/2 ML VIAL ONE (01:35)
[2024-02-10 01:36] LABS: Albumin 3.8 g/dL (3.4-5.0); Anion Gap 11.9 mEq/L (5.0-15.0); Bilirubin Direct 0.1 mg/dL (0-0.2); Bilirubin Indirect, Calculated 0.2 mg/dL (0.2-0.8); Bilirubin Total 0.3 mg/dL (0.2-1.0); Globulin 3.8 g/dL (2.3-3.5); Potassium 3.9 mEq/L (3.5-5.1); Protein, Total 7.6 g/dL (6.4-8.2); Troponin High Sensitivity 4.5 pg/mL (<58.9)
[2024-02-10 02:13] LABS: Band Neutrophils 9 % (0-1); Blood Morphology Comment NOT SEEN (NOT SEEN); Differential Total Cells Count 100; Lymphocytes 11 % (15-42); Monocytes 2 % (0-10); Platelet Estimate ADEQ; Reactive Lymphocytes 1 %; Segmented Neutrophils 77 % (40-80)
--- NOTE | 2024-02-10 03:07 | EDPHYS ---
Physician Documentation [facility] Name: Randy Briones Age: 53 yrs Sex: Male : 1970 Arrival Date: 02/09/2024 Time: 23:47 Bed 19 Private MD: ED Physician Jose Crews HPI: 02/08 23:54 This 53 yrs old Male presents to ER via Unassigned with complaints of sp4 Breathing Difficulty. 02/09 03:10 53-year-old male with history of tobacco use, COPD, alcohol abuse, hepatitis B, sp4 hypertension, oxygen dependent at home, presents with acute alcohol intoxication also worsening shortness of breath.. Historical: - Allergies: 00:49 Lisinopril; pf1 - PMHx: 00:49 Alcoholism; COPD; Hepatitis B (Hypertension); home 02 3LNC PRN; Hypertension; pf1 Osteoporosis; - PSHx: 00:49 Amputation of left index finger; pf1 - Immunization history:: Adult Immunizations up to date, Client reports receiving the 2nd dose of the Covid vaccine, pfizer Last tetanus immunization: > 10 years ago Flu vaccine is not up to date. - Infectious Disease History:: Denies. - Social history:: Smoking status: Patient reports the use of cigarette tobacco products, smokes 1.5 packs per day, Patient uses alcohol, on a daily basis. Patient/guardian denies using street drugs. - Family history:: not pertinent. ROS: 03:10 Constitutional: Negative for fever, chills, and weight loss, positive alcohol sp4 intoxication, positive alcohol abuse, positive dyspnea 03:10 All other systems are negative, Exam: 02:53 ECG was reviewed by the Attending Physician. EKG at 0108 normal sinus rhythm at rate sp4 of 87 03:10 Constitutional: This is a well developed, well nourished patient who is awake, alert, sp4 mild to moderate distress secondary to dyspnea. appears heavily intoxicated as well Head/Face: Normocephalic, atraumatic. Facial plethora Eyes: Pupils equal round and reactive to light, extra-ocular motions intact. Lids and lashes normal. Conjunctiva and sclera are not injected. Cornea within normal limits. Periorbital areas with no swelling, redness, or edema. ENT: Nares patent. No nasal discharge, no septal abnormalities noted. Tympanic membranes are normal and external auditory canals are clear. Oropharynx with no redness, swelling, or masses, exudates, or evidence of obstruction, uvula midline. Mucous membranes moist. Neck: Trachea midline, no thyromegaly or masses palpated, and no cervical lymphadenopathy. Supple, full range of motion without nuchal rigidity, or vertebral point tenderness. Chest/axilla: Normal chest wall appearance and motion. Nontender with no deformity. No lesions are appreciated. Cardiovascular: Regular rate and rhythm with a normal S1 and S2. No gallops, murmurs, or rubs. Normal PMI, no JVD. No pulse deficits. Respiratory: Lungs have equal breath sounds bilaterally, bilateral wheezes generalized. No crackles, dyspnea and tachypnea Abdomen/GI: Soft, with normal bowel sounds. No distension or tympany. No guarding or rebound. No evidence of tenderness throughout. Back: No spinal tenderness. No costovertebral tenderness. Skin: Warm, dry with normal turgor. Normal color with no rashes, no lesions, and no evidence of cellulitis. MS/ Extremity: Pulses equal, no cyanosis. Neurovascular intact. Full, normal range of motion. Neuro: Awake and alert, GCS 15, oriented to person, place, time, and situation. Cranial nerves II-XII grossly intact. Motor strength 5/5 in all extremities. Heavily intoxicated male. Vital Signs: 00:23 BP 174 / 108; Pulse 95; Resp 18; Temp 97.5; Pulse Ox 91% on R/A; Weight 79.38 kg; pf1 Height 5 ft. 4 in. ; Pain 0/10; 01:15 BP 185 / 114; Pulse 89; Resp 21; Pulse Ox 99% on 3 lpm NC; Pain 10/10; tm6 02:19 BP 141 / 57; Pulse 92; Pulse Ox 92% on 4 lpm NC; Pain 0/10; tm6 03:11 BP 141 / 57; Pulse 108; Resp 20; Temp 96.8(TE); Pulse Ox 93% on R/A; Pain 0/10; tm6 00:23 Body Mass Index 30.04 (79.38 kg, 162.56 cm) pf1 00:23 Pain Scale: Adult pf1 01:15 Pain Scale: Adult tm6 02:19 Pain Scale: Adult tm6 03:11 Pain Scale: Adult tm6 MDM: 02/08 23:54 Patient medically screened. 4 02/09 02:25 ED course: EXAM: XR Chest, 1 View CLINICAL HISTORY: CHEST PAIN TECHNIQUE: Frontal view sp4 of the chest. COMPARISON: XR Chest dated 02/07/2024 FINDINGS: Lungs: Unremarkable. No consolidation. Pleural space: Unremarkable. No pneumothorax. Heart: The cardiac silhouette is mildly enlarged, stable, in part accentuated by portable technique. Mediastinum: Unremarkable. Normal mediastinal contour. Bones/joints: Unremarkable. No acute fracture. IMPRESSION: No acute disease. . 03:12 Differential diagnosis: Anemia Anxiety Reaction asthma, Bronchitis CHF exacerbation, sp4 Chronic Obstructive Pulmonary Disease. Data reviewed: vital signs, nurses notes, old medical records, lab test result(s), EKG, radiologic studies, plain films. ED course: Patient was ordered another set of breathing treatments but he has refused and decided to go home.. Vital signs are stable. We deemed patient appropriate for discharge. Patient was advised to abstain from alcohol abuse and abstain from tobacco use. Patient was advised to see his primary care physician for close follow up and also was prescribed Ventolin inhaler with spacer. . 02/08 23:54 Order name: Alcohol Level; Complete Time: 02:24 sp4 02/09 00:30 Order name: Basic Metabolic Panel; Complete Time: 02:24 sp4 02/09 00:30 Order name: CBC with Diff; Complete Time: 02:24 sp4 02/09 00:30 Order name: LFT's; Complete Time: 02:24 sp4 02/09 00:30 Order name: NT PRO-BNP; Complete Time: 02:24 sp4 02/09 00:30 Order name: PT-INR; Complete Time: 01:29 sp4 02/09 00:30 Order name: Troponin HS; Complete Time: 02:24 sp4 02/09 01:23 Order name: Manual Differential; Complete Time: 02:24 EDMS 02/09 00:30 Order name: XRAY Chest (1 view) sp4 02/09 00:30 Order name: Saline Lock; Complete Time: 00:54 sp4 02/09 00:30 Order name: Cardiac monitoring; Complete Time: 00:55 sp4 02/09 00:30 Order name: EKG - Nurse/Tech; Complete Time: 01:13 sp4 02/09 00:30 Order name: Labs collected and sent; Complete Time: : sp4 02/09 00:30 Order name: O2 Per Protocol; Complete Time: sp4 02/09 00:30 Order name: O2 Sat Monitoring; Complete Time: : sp4 EC:53 Rate is 87 beats/min. Rhythm is regular, Normal Sinus Rhythm. QRS [place] is Normal. [place] sp4 interval is normal. QRS interval is normal. QT interval is normal. No Q waves. T waves are Normal. No ST changes noted. Clinical impression: No evidence of ischemia. Interpreted by me. Reviewed by me. Administered Medications: 01:22 Drug: DuoNeb Nebulize (3:1) (2.5 mg - 0.5 mg) 3 ml Nebulizer once Route: Nebulizer; tm6 01:22 Drug: MethylPREDNISolone Sodium Succinate IM 125 mg IM once Route: IM; Site: right tm6 ventrogluteal; 01:22 Drug: LORazepam PO 1 mg PO once Route: PO; tm6 01:45 Drug: Ketorolac IVP 30 mg IVP once Route: IVP; Site: left wrist; tm6 01:46 Drug: morphine IVP or IV 4 mg IVP once over 4 mins Route: IVP; Infused Over: 4 mins; tm6 Site: left wrist; 01:46 Drug: Ondansetron IVP 4 mg IVP once; over 2 minutes Route: IVP; Site: left wrist; tm6 03:03 Not Given (Patient Refused): DuoNeb Nebulize (3:1) (2.5 mg - 0.5 mg) 3 ml Nebulizer oncetm6 Disposition Summary: 02/10/24 03:06 Discharge Ordered Notes: Location: Home sp4 Problem: new sp4 Symptoms: have improved sp4 Condition: Stable sp4 Diagnosis - COPD/ Chronic obstructive pulmonary disease with (acute) exacerbation sp4 - Alcohol abuse with intoxication sp4 - Chronic generalized pain, COPD exacerbation with hypoxemia, alcoholism sp4 Followup: sp4 - With: Private Physician - When: 7 - 10 days - Reason: Recheck today's complaints Discharge Instructions: - Alcohol Intoxication sp4 - Discharge Summary Sheet tm6 Forms: - Patient Portal Instructions sp4 Prescriptions: - Ventolin HFA 90 mcg/actuation Inhalation HFA Aerosol Inhaler - inhale 1 puff INHALATION route every 4 hours PRN dyspnea , Dispense with sp4 Spacer; 1 unit; Refills: 0, Product Selection Permitted Signatures: Dispatcher [employer] Yary Lua, RN RN pf1 Jose Crews MD MD sp4 Leland Graf RN RN tm6 Corrections: (The following items were deleted from the chart) 02/08 23:54 23:54 ETHANOL+C.LAB.BRZ ordered. EDMS EDMS 02/09 00:31 00:31 BASIC METABOLIC PANEL+C.LAB.BRZ ordered. EDMS EDMS 00: 00:31 CBC+H.LAB.BRZ ordered. EDMS EDMS 00: 00:31 HEPATIC FUNCTION+C.LAB.BRZ ordered. EDMS EDMS 00: 00:31 PROBNP+C.LAB.BRZ ordered. EDMS EDMS 00: 00:31 PROTIME (+INR)+COAG.LAB.BRZ ordered. EDMS EDMS 00: 00:31 Troponin High Sensitivity+C.LAB.BRZ ordered. EDMS EDMS
--- NOTE | 2024-02-10 03:07 | ER ---
Nurse's Notes [facility] Name: Randy Briones Age: 53 yrs Sex: Male : 1970 Arrival Date: 02/09/2024 Time: 23:47 Bed 19 Private MD: Diagnosis: COPD/ Chronic obstructive pulmonary disease with (acute) exacerbation;Alcohol abuse with intoxication;Chronic generalized pain, COPD exacerbation with hypoxemia, alcoholism Presentation: 02/09 00:23 Chief complaint: Patient states: SOB,onset 2 days. pf1 00:23 Coronavirus screen: Vaccine status: Patient reports receiving the 2nd dose of the covid pf1 vaccine. Client denies travel out of the [place] in the last 14 days. At this time, the client does not indicate any symptoms associated with coronavirus-19. Ebola Screen: Patient negative for fever greater than or equal to 101.5 degrees Fahrenheit, and additional compatible Ebola Virus Disease symptoms No symptoms or risks identified at this time. Initial Sepsis Screen: Does the patient meet any 2 criteria? HR > 90 bpm. No. Patient's initial sepsis screen is negative. Does the patient have a suspected source of infection? No. Patient's initial sepsis screen is negative. Risk Assessment: Do you want to hurt yourself or someone else? Patient reports no desire to harm self or others. Onset of symptoms was February 08, 2024. 00:23 Method Of Arrival: Ambulatory pf1 00:23 Acuity: CANDACE 3 pf1 Triage Assessment: 00:23 General: Appears in no apparent distress. comfortable, well groomed, well developed, pf1 Behavior is calm, cooperative, appropriate for age, quiet. 00:23 Pain: Denies pain. Respiratory: Reports shortness of breath at rest on exertion since 2 pf1 days Airway is patent Respiratory effort is even, unlabored, Respiratory pattern is regular, symmetrical. 00:23 Respiratory: the patient has mild shortness of breath. tm6 Historical: - Allergies: 00:49 Lisinopril; pf1 - PMHx: 00:49 Alcoholism; COPD; Hepatitis B (Hypertension); home 02 3LNC PRN; Hypertension; pf1 Osteoporosis; - PSHx: 00:49 Amputation of left index finger; pf1 - Immunization history:: Adult Immunizations up to date, Client reports receiving the 2nd dose of the Covid vaccine, pfizer Last tetanus immunization: > 10 years ago Flu vaccine is not up to date. - Infectious Disease History:: Denies. - Social history:: Smoking status: Patient reports the use of cigarette tobacco products, smokes 1.5 packs per day, Patient uses alcohol, on a daily basis. Patient/guardian denies using street drugs. - Family history:: not pertinent. Screenin:17 [facility] ED Fall Risk Assessment (Adult) History of falling in the last 3 months, tm6 including since admission No falls in past 3 months (0 pts) Confusion or Disorientation No (0 pts) Intoxicated or Sedated No (0 pts) Impaired Gait No (0 pts) Mobility Assist Device Used No (0 pt) Altered Elimination No (0 pt) Score/Fall Risk Level 0 - 2 = Low Risk Oriented to surroundings, Maintained a safe environment. Abuse screen: Denies threats or abuse. Denies injuries from another. Nutritional screening: No deficits noted. Tuberculosis screening: No symptoms or risk factors identified. Assessment: 01:15 General: Appears uncomfortable, Behavior is calm, cooperative. Pain: Complains of pain tm6 in left hip and left leg Pain currently is 10 out of 10 on a pain scale. Quality of pain is described as aching, Pain began years ago. Neuro: Level of Consciousness is awake, alert, obeys commands, Oriented to person, place, time, situation. Cardiovascular: Reports shortness of breath, Patient's skin is warm and dry. Rhythm is sinus rhythm. Respiratory: Airway is patent Respiratory effort is labored, Respiratory pattern is symmetrical, Breath sounds are clear. GI: No signs and/or symptoms were reported involving the gastrointestinal system. Abdomen is round distended. : No signs and/or symptoms were reported regarding the genitourinary system. EENT: No signs and/or symptoms were reported regarding the EENT system. Derm: No signs and/or symptoms reported regarding the dermatologic system. Musculoskeletal: No signs and/or symptoms reported regarding the musculoskeletal system. 02:20 Reassessment: Patient and/or family updated on plan of care and expected duration. Pain tm6 level reassessed. Patient is alert, oriented x 3, equal unlabored respirations, skin warm/dry/pink. 03:11 Reassessment: Patient and/or family updated on plan of care and expected duration. Pain tm6 level reassessed. Patient is alert, oriented x 3, equal unlabored respirations, skin warm/dry/pink. Vital Signs: 00:23 BP 174 / 108; Pulse 95; Resp 18; Temp 97.5; Pulse Ox 91% on R/A; Weight 79.38 kg; pf1 Height 5 ft. 4 in. ; Pain 0/10; 01:15 BP 185 / 114; Pulse 89; Resp 21; Pulse Ox 99% on 3 lpm NC; Pain 10/10; tm6 02:19 BP 141 / 57; Pulse 92; Pulse Ox 92% on 4 lpm NC; Pain 0/10; tm6 03:11 BP 141 / 57; Pulse 108; Resp 20; Temp 96.8(TE); Pulse Ox 93% on R/A; Pain 0/10; tm6 00:23 Body Mass Index 30.04 (79.38 kg, 162.56 cm) pf1 00:23 Pain Scale: Adult pf1 01:15 Pain Scale: Adult tm6 02:19 Pain Scale: Adult tm6 03:11 Pain Scale: Adult tm6 ED Course: 0402 23:48 Patient arrived in ED. jj6 23:54 Jose Crews MD is Attending Physician. sp4 0403 00:34 Leland Graf, RN is Primary Nurse. tm6 00:49 Triage completed. pf1 00:54 Basic Metabolic Panel Sent. tm6 00:54 CBC with Diff Sent. tm6 00:54 LFT's Sent. tm6 00:54 NT PRO-BNP Sent. tm6 00:54 PT-INR Sent. tm6 00:54 Troponin HS Sent. tm6 00:54 Alcohol Level Sent. tm6 00:54 Inserted saline lock: 22 gauge in left wrist, using aseptic technique. Oxygen tm6 administration via nasal cannula \T\ 3L/min. 01:02 XRAY Chest (1 view) In Process Unspecified. EDMS 01:14 EKG done, by ED staff, reviewed by Jose Crews MD. tm6 01:17 Patient has correct armband on for positive identification. Placed in gown. Bed in low tm6 position. Call light in reach. Side rails up X2. Provided Education on: plan of care. Client placed on continuous cardiac and pulse oximetry monitoring. NIBP monitoring applied. pvc monitor on. Pulse ox on. NIBP on. Door closed. Noise minimized. Warm blanket given. 01:17 Arm band placed on right wrist. tm6 03:11 No provider procedures requiring assistance completed. IV discontinued, intact, tm6 bleeding controlled, No redness/swelling at site. Pressure dressing applied. Administered Medications: 01:22 Drug: DuoNeb Nebulize (3:1) (2.5 mg - 0.5 mg) 3 ml Nebulizer once Route: Nebulizer; tm6 01:22 Drug: MethylPREDNISolone Sodium Succinate IM 125 mg IM once Route: IM; Site: right tm6 ventrogluteal; 01:22 Drug: LORazepam PO 1 mg PO once Route: PO; tm6 01:45 Drug: Ketorolac IVP 30 mg IVP once Route: IVP; Site: left wrist; tm6 01:46 Drug: morphine IVP or IV 4 mg IVP once over 4 mins Route: IVP; Infused Over: 4 mins; tm6 Site: left wrist; 01:46 Drug: Ondansetron IVP 4 mg IVP once; over 2 minutes Route: IVP; Site: left wrist; tm6 03:03 Not Given (Patient Refused): DuoNeb Nebulize (3:1) (2.5 mg - 0.5 mg) 3 ml Nebulizer oncetm6 Medication: 01:17 VIS not applicable for this client. tm6 Outcome: 03:06 Discharge ordered by . sp4 03:12 Discharged to home ambulatory, tm6 03:12 Discharged to home ambulatory, with family, 03:12 Condition: stable 03:12 Discharge instructions given to patient, Instructed on discharge instructions, follow up and referral plans. medication usage, Demonstrated understanding of instructions, follow-up care, medications, Prescriptions given X 1, 03:12 Patient left the ED. tm6 Signatures: Dispatcher [employer] EDMS Beatriz Mars Pamala, RN RN pf1 Jose Crews MD MD sp4 Leland Graf RN RN tm6 Corrections: (The following items were deleted from the chart) 00:49 00:46 Chief complaint: Patient states: SOB,onset 2 days. pf1 pf1
[2024-02-10 03:25] VITALS: BP 141/57; TEMP 96.8; O2SAT 93
--- NOTE | 2024-02-10 11:48 | RAD REPORT ---
EXAM DESCRIPTION: XR Chest, 1 View CLINICAL HISTORY: CHEST PAIN TECHNIQUE: Frontal view of the chest. COMPARISON: XR Chest dated 02/07/2024 FINDINGS: Lungs: Unremarkable. No consolidation. Pleural space: Unremarkable. No pneumothorax. Heart: The cardiac silhouette is mildly enlarged, stable, in part accentuated by portable technique . Mediastinum: Unremarkable. Normal mediastinal contour. Bones/joints: Unremarkable. No acute fracture. IMPRESSION: No acute disease. Electronically signed by: Catrina Hobbs MD 02/10/2024 01:20 AM CDT Due to temporary technical issues with the PACS/Fluency reporting system, reports are being signed by the in house radiologist without review as a courtesy to ensure prompt reporting. The interpreting r adiologist is fully responsible for the content of the report.
--- NOTE | 2024-02-11 15:42 | EKG ---
Test Date: 2024-02-10 Test Time: 01:08:48 Display Associate: TRUNG MEASUREMENT RESULTS: Intervals: Rate: 87 OK: 132 QRSD: 108 QT: 378 QTc: 454 [place]: P: 79 OK: 132 QRS: 89 T: 79 INTERPRETIVE STATEMENTS: Normal sinus rhythm Incomplete right bundle branch block Borderline ECG Compared to ECG 02/03/2024 23:45:07 Incomplete right bundle-branch block now present Electronically Signed On 02-11-24 15:39:33 CDT by Rosalino Albert
== END 2024-02-10 03:12 | disposition home or self-care (01) ==
LOC: ER 23:47
DX: J44.1 Chronic obstructive pulmonary disease with (acute) exacerbation (principal); R09.02 Hypoxemia; F10.229 Alcohol dependence with intoxication, unspecified; G89.29 Other chronic pain; F17.210 Nicotine dependence, cigarettes, uncomplicated; Z99.81 Dependence on supplemental oxygen
CPT/HCPCS: 93005; 85025; 80048; 36415; 85610; 80076; 84484; 83880; 71045; 82077; J7613; J7644; J2930; J2405

== ENCOUNTER 2024-02-14 10:10 | Observation (INO) | payer OTHER ==
--- OUTSIDE RECORDS SUMMARY | 2024-02-14 10:14 | XMS REPORT | Continuity of Care Document ---
Author Name Unknown Address [address] [facility] [address] [place] [address] [facility] medical cent[facility]rect Address [address] [facility] [address] [place] [address] Care Team Providers Care Resource Room Special Education Teacher Name Role Phone Adrianna Michaels Primary Care Physician [phone] KEISHA DAVENPORT Attending Clinician Unav ailable Keisha Davenport MD Attending Clinician + Christina Victoria Attending Clinician [phone] JAC NAVARRO Attending Clinician Unavailable Jac Navarro MD Attending Clinician [phone] TYLER ROWE Attending Clinician Unavailab MELINDA Boothe Attending Clinician Unavailable Melinda Maciel DO Attending Clinician [phone] CHRISTY HOLLIDAY Attending Clinician Unavailable Christy Holliday MD Attending Clinician [phone] DARIEN LOBO Attending Clinician Unavailable MARIA ELENA CHAN MEDICAL Attending George akins Unavailable DENISE SUNG Attending Clinician Unavailable KARLEY ADAMS Attending Clinician Unavailable JAC NAVARRO Admitting Clinician Unavailable MELINDA MACIEL Admitting Clinician Unavailable CHRISTY HOLLIDAY Admitting Clinician Unavailable Payers Payer Name Policy Type Policy Number Effective Date Expirati on Date Source [facility] [id number] 2023 00:00:00 2024 00:00:00 [employer] [id number] 2023 00:00:00 [employer] 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 94 ON 9 [id number] 2023 00:00:00 Problems Condition Name Condition Details Condition Category Status Onset Date Resolution Date Last Treatment Date Treating Clinician Comments Source Acute exacerbati on of chronic obstructiv e pulmonary disease (COPD) Acute exacerbati on of chronic obstructiv e pulmonary disease (COPD) Disease Active 03-24 00:00: 00 [facility] Obesity (BMI 30-39.9) Obesity (BMI 30-39.9) Disease Active 03-24 00:00: 00 [facility] Allergies, Adverse Reactions, Alerts Allergy Name Allergy Type Status Severity Reaction(s) Onset Date Inactive Date Treating Clinician Comments Source Lisinopr il Propensi ty to adverse reaction s Active Anaphylaxis 03-24 00:00: 00 [facility] LISINOPR IL DRUG INGREDI Active Anaphylaxis 03-24 00:00: 00 [facility] Social History Social Habit Start Date Stop Date Quantity Comments Source History of tobacco use Smokes tobacco daily [facility] of Social function 2024-02-08 00:00:00 2024-02-08 00:00:00 [facility] Alcohol intake 2024-02-08 00:00:00 2024-02-08 00:00:00 4.29 /d [facility] Exposure to SARS-CoV-2 (event) 2022-10-04 00:00:00 2022-10-14 10:25:00 Not sure [facility] Tobacco use and exposure 2018-03-24 00:00:00 2018-03-24 00:00:00 User of smokeless tobacco [facility] Tobacco Comment 2018-03-24 00:00:00 2018-03-24 00:00:00 trying to quit [facility] Sex Assigned At 1970 00:00:00 1970 00:00:00 [facility] Smoking Status Start Date Stop Date Source Smokes tobacco daily 2018-03-24 00:00:00 [facility] Medications Ordered Medication Name Filled Medication Name Start Date Stop Date Current Medication? Ordering Clinician Indication Dosage Frequency Signature (SIG) Comments Components Source ketorolac (TORADOL) injection 15 mg 02-08 03:00: 00 02-08 02:21 :00 No 15mg 15 mg, Slow IV Push, ONCE, 1 dose, On Thu02/08/24 at 2200, Routine [facility] iopamidol (ISOVUE 370-500 mL) injection 100 mL 02-07 22:30: 00 02-07 22:30 :00 Yes [id number] 100mL 100 mL, Intravenou s, ONCE, 1 dose, On Thu02/08/24 at 1730, Routine [facility] ipratropium -albuteroL (DUONEB) 0.5 mg-3 mg(2.5 mg base)/3 mL nebulizer solution 3 mL 02-07 21:15: 00 02-07 20:45 :00 No 3mL 3 mL, Inhalation , ONCE, 1 dose, On Thu02/08/24 at 1615, Routine [facility] morpHINE (2 mg/mL) injection 4 mg 02-07 21:15: 00 02-07 20:27 :00 No 4mg 4 mg, Slow IV Push, ONCE, 1 dose, On Thu02/08/24 at 1615, STAT [facility] ondansetron (ZOFRAN (PF)) injection 4 mg 02-07 21:15: 00 02-07 20:22 :00 No 4mg 4 mg, Slow IV Push, ONCE, 1 dose, On Thu02/08/24 at 1615, LAURYN [facility] magnesium sulfate in water 2 gram/50 mL (4 %) infusion 2 g 02-07 21:00: 00 02-07 21:30 :00 No 2g 2 g, IV Piggyback, Administer over 60 Minutes, ONCE, 1 dose, On Thu02/08/24 at 1600, Routine [facility] ipratropium -albuteroL (DUONEB) 0.5 mg-3 mg(2.5 mg base)/3 mL nebulizer solution 3 mL 02-07 20:30: 00 02-07 19:31 :00 No 3mL 3 mL, Inhalation , ONCE, 1 dose, On Thu02/08/24 at 1530, Routine [facility] HYDROcodone -acetaminop hen (NORCO) 10-325 mg tablet 1 tablet 01-13 13:15: 00 01-13 12:15 :00 No 1{tbl} 1 tablet, Oral, ONCE, 1 dose, On Thu01/14/24 at 0715, LAURYN [facility] ipratropium -albuteroL (DUONEB) 0.5 mg-3 mg(2.5 mg base)/3 mL nebulizer solution 3 mL 01-13 13:00: 00 01-13 11:53 :00 No 3mL 3 mL, Inhalation , ONCE NOW, 1 dose, On Thu01/14/24 at 0700, [facility] (ZOFRAN (PF)) injection 4 mg 01-13 11:30: 00 01-13 11:37 :00 No 4mg 4 mg, Slow IV Push, ONCE, 1 dose, On Thu01/14/24 at 0530, [facility] morpHINE (4 mg/mL) injection 4 mg 01-13 11:30: 00 01-13 11:37 :00 No 4mg 4 mg, Slow IV Push, ONCE, 1 dose, On Thu01/14/24 at 0530, STAT [facility] azithromyci n (ZITHROMAX Z-PORTER) 250 mg tablet 01-13 00:00: 00 Yes [id number] Take 500 mg on day 1 then 250 mg on days 2-5 [facility] predniSONE 20 mg tablet 01-13 00:00: 00 Yes [id number] Take 1 po tid x 2 days, then take 1 po bid x 3 days, then take 1 po daily x 3 days. [facility] acetaminoph en-codeine 300-30 mg tablet 01-13 00:00: 00 01-21 04:59 :00 Yes [id number] 1{tbl} Take 1 tablet by mouth every 6 (six) hours as needed for Pain (scale 7-10) (severe cough) for up to 7 days. Indication s: acute pain, severe cough [facility] KCL (KLOR-CON M20) tablet 40 mEq 12-23 05:00: 00 12-23 05:07 :00 No 40meq 40 mEq, Oral, ONCE, 1 dose, On Thu12/22/23 at 2300, [facility] NaCl 0.9% (NS) bolus infusion 1,000 mL 12-23 05:00: 00 12-23 05:09 :00 No 1000mL at 999 mL/hr, 1,000 mL, IV Infusion, ONCE, 1 dose, On Thu12/22/23 at 2300, [facility] ondansetron (ZOFRAN (PF)) injection 4 mg 12-23 04:30: 00 12-23 04:24 :00 No 4mg 4 mg, Slow IV Push, ONCE, 1 dose, On Thu12/22/23 at 2230, [facility] maalox:diph enhydrAMINE :lidocaine 2 % viscous 1:1:1 ([facility]) oral suspension 15 mL 12-23 04:15: 00 12-23 04:17 :00 No 15mL 15 mL, Oral, ONCE, 1 dose, On Thu12/22/23 at 2215, Routine [facility] famotidine (PEPCID (PF)) injection 20 mg 12-23 04:15: 00 12-23 04:15 :00 No 20mg 20 mg, Slow IV Push, ONCE, 1 dose, On Thu12/22/23 at 2215, LAURYN [facility] HYDROcodone -acetaminop hen (NORCO) 10-325 mg tablet 1 tablet 12-22 04:30: 00 12-22 16:29 :00 Yes 1{tbl} 1 tablet, Oral, ONCE, 1 dose, On Thu12/21/23 at 2230, Routine [facility] pantoprazol e (PROTONIX) 80 mg in NaCl 0.9% (NS) 20 mL syringe 12-22 04:15: 00 12-22 16:14 :00 Yes 80mg 80 mg, IV Push, ONCE, 1 dose, On Thu12/21/23 at 2215, Administer over 2 Minutes, 20 mL [facility] iopamidol (ISOVUE 370-500 mL) injection 100 mL 12-22 03:30: 00 12-22 03:30 :00 No [id number] 100mL 100 mL, Intravenou s, ONCE, 1 dose, On Thu12/21/23 at 2130, Routine [facility] morpHINE (4 mg/mL) injection 4 mg 12-22 03:30: 00 12-22 02:16 :00 No 4mg 4 mg, Slow IV Push, ONCE, 1 dose, On Thu12/21/23 at 2130, Routine [facility] ondansetron (ZOFRAN (PF)) injection 4 mg 12-22 02:45: 00 12-22 02:02 :00 No 4mg 4 mg, Slow IV Push, ONCE, 1 dose, On Thu12/21/23 at 2045, Routine [facility] ondansetron 4 mg disintegrat ing tablet 12-22 00:00: 00 Yes [id number] 4mg Take 1 tablet by mouth every 8 (eight) hours as needed for Nausea and Vomiting (N/V). [facility] hydrocortis one 25 mg suppository 12-22 00:00: 00 Yes [id number] 25mg Insert 1 Suppositor y into rectum 2 (two) times daily as needed for Rectal itching/pa in. [facility] amoxicillin -clavulanat e 875-125 mg per tablet 12-22 00:00: 00 01-02 05:59 :00 Yes [id number] 1{tbl} Take 1 tablet by mouth every 12 (twelve) hours for 10 days. [facility] methylpredn isolone sod succ (SOLU-MEDRO L) injection 125 mg 2022-11 08:45: 00 10-27 20:44 :00 No 125mg 125 mg, Slow IV Push, ONCE, 1 dose, On Thu10/27/23 at 0245, STAT [facility] ipratropium -albuteroL (DUONEB) 0.5 mg-3 mg(2.5 mg base)/3 mL nebulizer solution 3 mL 2022-11 08:45: 00 10-27 20:44 :00 No 3mL 3 mL, Inhalation , ONCE NOW, 1 dose, On Thu10/27/23 at 0245, LAURYN [facility] diazePAM (VALIUM) tablet 10 mg 2022-11 07:45: 00 10-27 19:44 :00 No 10mg 10 mg, Oral, ONCE, 1 dose, On Thu10/27/23 at 0145, LAURYN [facility] levoFLOXaci n (LEVAQUIN) tablet 500 mg 2022-11 07:45: 00 10-27 19:44 :00 No 500mg 500 mg, Oral, ONCE, 1 dose, On Thu10/27/23 at 0145, LAURYN
Re ason for Anti-Infec tive: Empiric Non-Surgic al Prophylaxi s
Durat ion of therapy: Once (ED) [facility] iopamidol (ISOVUE 370-500 mL) injection 70 mL 2021-11 18:30: 00 10-14 18:30 :00 No [id number] 70mL 70 mL, Intravenou s, ONCE, 1 dose, On Thu10/14/22 at 1230, Routine [facility] methylpredn isolone sod succ (SOLU-MEDRO L) injection 125 mg 2021-11 18:00: 00 Yes 125mg 125 mg, Intravenou s, Q6H, First dose on Thu10/14/22 at 1200, Until Discontinu ed, Routine [facility] furosemide (LASIX) injection 40 mg 2021-11 17:45: 00 10-14 16:39 :00 No 40mg 40 mg, IV Push, ONCE, 1 dose, On Thu10/14/22 at 1145, LAURYN [facility] ipratropium -albuteroL (DUONEB) 0.5 mg-3 mg(2.5 mg base)/3 mL nebulizer solution 3 mL 2021-11 17:30: 00 10-14 16:41 :00 No 3mL 3 mL, Inhalation , ONCE, 1 dose, On Thu10/14/22 at 1130, Routine [facility] FENTanyl PF (SUBLIMAZE (PF)) injection 50 mcg 2021-11 16:45: 00 10-14 16:39 :00 No 50ug 50 mcg, Slow IV Push, ONCE, 1 dose, On Thu10/14/22 at 1045, Routine [facility] levoFLOXaci n 750 mg tablet 2021-11 00:00: 00 Yes [id number] 750mg Take 1 tablet by mouth every 24 (twenty-fo ur) hours. [facility] HYDROcodone -acetaminop hen (NORCO) 10-325 mg tablet 1 tablet 03-12 12:15: 00 03-12 11:21 :00 No 1{tbl} 1 tablet, Oral, ONCE, 1 dose, On Thu03/12/22 at 0715, Routine [facility] HYDROcodone -acetaminop hen 10-325 mg tablet 03-12 00:00: 00 03-20 04:59 :00 No [id number] 1{tbl} Take 1 tablet by mouth every 6 (six) hours as needed for Pain (scale 7-10) for up to 7 days. Indication s: acute pain [facility] ipratropium -albuteroL (DUONEB) 0.5 mg-3 mg(2.5 mg base)/3 mL nebulizer solution 3 mL 02-20 13:00: 00 Yes 3mL 3 mL, Inhalation , QID, First dose on Thu02/20/22 at 0800, Until Discontinu ed, Routine [facility] methylPREDN ISolone sod succ (SOLU-MEDRO L (PF)) injection 40 mg 02-20 11:45: 00 02-20 10:43 :00 No 40mg 40 mg, Intravenou s, ONCE, 1 dose, On Kym 02/20/22 at 0645, STAT [facility] foLIC acid (FOLATE) tablet 1 mg 02-20 11:45: 00 02-20 10:41 :00 No 1mg 1 mg, Oral, ONCE, 1 dose, On Thu02/20/22 at 0645, LAURYN [facility] thiamine (VITAMIN B1) injection 100 mg 02-20 11:45: 00 02-20 10:43 :00 No 100mg 100 mg, Intravenou s, ONCE, 1 dose, On Kym 02/20/22 at 0645, LAURYN [facility] LORazepam (ATIVAN) injection 2 mg 02-20 11:45: 00 02-20 10:42 :00 No 2mg 2 mg, Slow IV Push, ONCE, 1 dose, On Kym 02/20/22 at 0645, STAT [facility] ipratropium -albuteroL (DUONEB) 0.5 mg-3 mg(2.5 mg base)/3 mL nebulizer solution 3 mL 02-20 10:30: 00 02-20 09:34 :00 No 3mL 3 mL, Inhalation , ONCE, 1 dose, On Kym 02/20/22 at 0530, Routine [facility] albuterol 90 mcg/actuati on inhaler 02-20 00:00: 00 Yes [id number] 2{puff} Inhale 2 Puffs every 4 (four) hours as needed for Wheezing or Shortness of Breath. [facility] albuterol 2.5 mg /3 mL (0.083 %) nebulizer solution 02-20 00:00: 00 Yes [id number] 2.5mg Inhale 3 mL every 4 (four) hours. May also nebulize one extra every 6 hours. [facility] budesonide- formoteroL 160-4.5 mcg/actuati on inhaler 02-20 00:00: 00 Yes [id number] 2{puff} Inhale 2 Puffs 2 (two) times daily. [facility] triamterene -hydrochlor othiazid 37.5-25 mg tablet 02-20 00:00: 00 Yes [id number] 1{tbl} Take 1 tablet by mouth daily. [facility] chlordiazeP OXIDE 25 mg capsule 02-20 00:00: 00 Yes [id number] 25mg Take 1 capsule by mouth every 6 (six) hours as needed for Anxiety, Agitation, Heart Rate => 100 or Detox. [facility] predniSONE 10 mg tablet 02-20 00:00: 00 Yes [id number] TAKE ONE TABLET BY MOUTH DAILY [facility] albuterol 5 mg/mL nebulizer solution 07-16 14:02: 20 Yes 2.5mg Inhale 2.5 mg every 6 (six) hours as needed for Wheezing or Shortness of Breath. [facility] budesonide- formoterol 160-4.5 mcg/actuati on inhaler 07-16 00:00: 00 Yes 2{puff} Inhale 2 Puffs 2 (two) times daily. [facility] albuterol 2.5 mg /3 mL (0.083 %) nebulizer solution 07-16 00:00: 00 Yes 2.5mg Inhale 3 mL every 4 (four) hours as needed for Wheezing or Shortness of Breath. [facility] triamterene -hydrochlor othiazide 37.5-25 mg per capsule 03-26 16:32: 14 Yes 1{capsu le} Take 1 capsule by mouth every morning. [facility] amLODIPine 10 mg tablet 03-26 16:32: 14 Yes 10mg Take 10 mg by mouth at bedtime. [facility] gabapentin 100 mg capsule 03-26 16:32: 14 Yes 100mg Take 100 mg by mouth 2 (two) times daily as needed ([facility] pain). [facility] foLIC acid 1 mg tablet 03-26 16:32: 14 Yes 1mg Take 1 mg by mouth daily. [facility] budesonide- formoterol 160-4.5 mcg/actuati on inhaler 03-26 00:00: 00 Yes 2{puff} Inhale 2 Puffs 2 (two) times daily. [facility] Immunizations Ordered Immunization Name Filled Immunization Name Date Status Comments Source SARS-COV-2 COVID-19 PFIZER VACCINE 2021-02-03 00:00:00 Completed [facility] SARS-COV-2 COVID-19 PFIZER VACCINE 2021-02-03 00:00:00 Completed [facility] SARS-COV-2 COVID-19 PFIZER VACCINE 2021-02-03 00:00:00 Completed [facility] SARS-COV-2 COVID-19 PFIZER VACCINE 2021-01-13 00:00:00 Completed [facility] SARS-COV-2 COVID-19 PFIZER VACCINE 2021-01-13 00:00:00 Completed [facility] SARS-COV-2 COVID-19 PFIZER VACCINE 2021-01-13 00:00:00 Completed [facility] Pneumococcal Polysaccharide, PPSV23 (PNEUMOVAX) 2018-03-26 00:00:00 Completed [facility] Influenza Virus Vaccine Quad IM 3+ YRS 2018-03-26 00:00:00 Completed [facility] Pneumococcal Polysaccharide, PPSV23 (PNEUMOVAX) 2018-03-26 00:00:00 Completed [facility] Influenza Virus Vaccine Quad IM 3+ YRS 2018-03-26 00:00:00 Completed [facility] Pneumococcal Polysaccharide, PPSV23 (PNEUMOVAX) 2018-03-26 00:00:00 Completed [facility] Influenza Virus Vaccine Quad IM 3+ YRS 2018-03-26 00:00:00 Completed [facility] Pneumococcal Polysaccharide, PPSV23 (PNEUMOVAX) Unknown [facility] Influenza Virus Vaccine Quad IM 3+ YRS Unknown Completed [facility] SARS-COV-2 COVID-19 PFIZER VACCINE Unknown Completed [facility] SARS-COV-2 COVID-19 PFIZER VACCINE Unknown Completed [facility] Pneumococcal Polysaccharide, PPSV23 (PNEUMOVAX) Unknown Completed [facility] Influenza Virus Vaccine Quad IM 3+ YRS Unknown Completed [facility] SARS-COV-2 COVID-19 PFIZER VACCINE Unknown Completed [facility] SARS-COV-2 COVID-19 PFIZER VACCINE Unknown Completed [facility] Pneumococcal Polysaccharide, PPSV23 (PNEUMOVAX) Unknown Completed [facility] Influenza Virus Vaccine Quad IM 3+ YRS Unknown Completed [facility] SARS-COV-2 COVID-19 PFIZER VACCINE Unknown Completed [facility] SARS-COV-2 COVID-19 PFIZER VACCINE Unknown Completed [facility] Pneumococcal Polysaccharide, PPSV23 (PNEUMOVAX) Unknown [facility] Influenza Virus Vaccine Quad IM 3+ YRS Unknown Completed [facility] SARS-COV-2 COVID-19 PFIZER VACCINE Unknown Completed [facility] SARS-COV-2 COVID-19 PFIZER VACCINE Unknown Completed [facility] Pneumococcal Polysaccharide, PPSV23 (PNEUMOVAX) Unknown Completed [facility] Influenza Virus Vaccine Quad IM 3+ YRS Unknown Completed [facility] SARS-COV-2 COVID-19 PFIZER VACCINE Unknown Completed [facility] SARS-COV-2 COVID-19 PFIZER VACCINE Unknown Completed [facility] Pneumococcal Polysaccharide, PPSV23 (PNEUMOVAX) Unknown Completed [facility] Influenza Virus Vaccine Quad IM 3+ YRS Unknown Completed [facility] SARS-COV-2 COVID-19 PFIZER VACCINE Unknown Completed [facility] SARS-COV-2 COVID-19 PFIZER VACCINE Unknown Completed [facility] Pneumococcal Polysaccharide, PPSV23 (PNEUMOVAX) Unknown Completed [facility] Influenza Virus Vaccine Quad IM 3+ YRS Unknown Completed [facility] SARS-COV-2 COVID-19 PFIZER VACCINE Unknown Completed [facility] SARS-COV-2 COVID-19 PFIZER VACCINE Unknown Completed [facility] Vital Signs Vital Name Observation Time Observation Value Comments S bernardo Systolic blood pressure 2024-02-09 01:54:05 150 mm[Hg] [facility] Diastolic blood pressure 2024-02-09 01:54:05 91 mm[Hg] [facility] Heart rate 2024-02-09 01:54:05 87 /min [facility] Respiratory rate 2024-02-09 01:54:05 17 /min [facility] Oxygen saturation in Arterial blood by Pulse oximetry 2024-02-09 01:54:05 93 /min [facility] Body temperature 2024-02-09 01:45:00 36.67 Debbie [facility] Body height 2024-02-09 01:45:00 162.6 cm [facility] Body weight 2024-02-09 01:45:00 81.194 kg [facility] BMI 2024-02-09 01:45:00 30.73 kg/m2 [facility] Respiratory rate 2024-02-08 21:00:00 18 /min [facility] Oxygen saturation in Arterial blood by Pulse oximetry 2024-02-08 21:00:00 96 /min [facility] Systolic blood pressure 2024-02-08 20:27:00 164 mm[Hg] [facility] Diastolic blood pressure 2024-02-08 20:27:00 90 mm[Hg] [facility] Heart rate 2024-02-08 20:27:00 83 /min [facility] Body temperature 2024-02-08 19:12:00 36.83 Debbie [facility] Body height 2024-02-08 19:12:00 162.6 cm [facility] Body weight 2024-02-08 19:12:00 81.194 kg [facility] BMI 2024-02-08 19:12:00 30.73 kg/m2 [facility] Heart rate 2024-01-14 12:15:00 98 /min [facility] Body temperature 2024-01-14 12:15:00 36.56 Debbie [facility] Respiratory rate 2024-01-14 12:15:00 14 /min [facility] Oxygen saturation in Arterial blood by Pulse oximetry 2024-01-14 12:15:00 95 /min [facility] Systolic blood pressure 2024-01-14 12:00:00 140 mm[Hg] [facility] Diastolic blood pressure 2024-01-14 12:00:00 90 mm[Hg] [facility] Body height 2024-01-14 10:51:00 162.6 cm [facility] Body weight 2024-01-14 10:51:00 81.194 kg [facility] BMI 2024-01-14 10:51:00 30.73 kg/m2 [facility] Systolic blood pressure 2023-12-23 05:02:00 133 mm[Hg] [facility] Diastolic blood pressure 2023-12-23 05:02:00 84 mm[Hg] [facility] Heart rate 2023-12-23 05:02:00 78 /min [facility] Body temperature 2023-12-23 05:02:00 36.17 Debbie [facility] Respiratory rate 2023-12-23 05:02:00 17 /min [facility] Oxygen saturation in Arterial blood by Pulse oximetry 2023-12-23 05:02:00 91 /min [facility] Body height 2023-12-23 03:45:00 162.6 cm [facility] Body weight 2023-12-23 03:45:00 81.194 kg [facility] BMI 2023-12-23 03:45:00 30.73 kg/m2 [facility] Systolic blood pressure 2023-12-22 02:08:00 143 mm[Hg] [facility] Diastolic blood pressure 2023-12-22 02:08:00 92 mm[Hg] [facility] Heart rate 2023-12-22 02:08:00 81 /min [facility] Respiratory rate 2023-12-22 02:08:00 13 /min [facility] Oxygen saturation in Arterial blood by Pulse oximetry 2023-12-22 02:08:00 95 /min [facility] Body temperature 2023-12-22 01:33:00 36.72 Debbie [facility] Body height 2023-12-22 01:33:00 162.6 cm [facility] Body weight 2023-12-22 01:33:00 81.239 kg [facility] BMI 2023-12-22 01:33:00 30.74 kg/m2 [facility] Systolic blood pressure 2023-11-11 02:00:00 127 mm[Hg] [facility] Diastolic blood pressure 2023-11-11 02:00:00 87 mm[Hg] [facility] Heart rate 2023-11-11 02:00:00 79 /min [facility] Respiratory rate 2023-11-11 02:00:00 20 /min [facility] Oxygen saturation in Arterial blood by Pulse oximetry 2023-11-11 02:00:00 98 /min [facility] Body temperature 2023-11-11 01:31:00 36.28 Debbie [facility] Body height 2023-11-11 01:31:00 162.6 cm [facility] Body weight 2023-11-11 01:31:00 79.379 kg [facility] BMI 2023-11-11 01:31:00 30.04 kg/m2 [facility] Systolic blood pressure 2023-10-27 06:54:00 133 mm[Hg] [facility] Diastolic blood pressure 2023-10-27 06:54:00 94 mm[Hg] [facility] Heart rate 2023-10-27 06:54:00 95 /min [facility] Body temperature 2023-10-27 06:54:00 36.44 Debbie [facility] Respiratory rate 2023-10-27 06:54:00 22 /min [facility] Body height 2023-10-27 06:54:00 162.6 cm [facility] Body weight 2023-10-27 06:54:00 78.472 kg [facility] BMI 2023-10-27 06:54:00 29.70 kg/m2 [facility] Oxygen saturation in Arterial blood by Pulse oximetry 2023-10-27 06:54:00 94 /min [facility] Systolic blood pressure 2022-10-14 19:43:00 111 mm[Hg] [facility] Diastolic blood pressure 2022-10-14 19:43:00 74 mm[Hg] [facility] Heart rate 2022-10-14 19:43:00 98 /min [facility] Body temperature 2022-10-14 19:43:00 36.39 Debbie [facility] Respiratory rate 2022-10-14 19:43:00 22 /min [facility] Oxygen saturation in Arterial blood by Pulse oximetry 2022-10-14 19:43:00 94 /min [facility] Body height 2022-10-14 16:13:00 162.6 cm [facility] Body weight 2022-10-14 16:13:00 81.647 kg [facility] BMI 2022-10-14 16:13:00 30.90 kg/m2 [facility] Systolic blood pressure 2022-03-12 10:13:00 119 mm[Hg] [facility] Diastolic blood pressure 2022-03-12 10:13:00 75 mm[Hg] [facility] Heart rate 2022-03-12 10:13:00 105 /min [facility] Body temperature 2022-03-12 10:13:00 37.28 Debbie [facility] Respiratory rate 2022-03-12 10:13:00 19 /min [facility] Body height 2022-03-12 10:13:00 162.6 cm [facility] Body weight 2022-03-12 10:13:00 99.791 kg [facility] BMI 2022-03-12 10:13:00 37.76 kg/m2 [facility] Oxygen saturation in Arterial blood by Pulse oximetry 2022-03-12 10:13:00 96 /min [facility] Systolic blood pressure 2022-02-20 11:57:00 155 mm[Hg] [facility] Diastolic blood pressure 2022-02-20 11:57:00 88 mm[Hg] [facility] Heart rate 2022-02-20 11:57:00 105 /min [facility] Respiratory rate 2022-02-20 11:57:00 18 /min [facility] Oxygen saturation in Arterial blood by Pulse oximetry 2022-02-20 11:57:00 100 /min [facility] Body temperature 2022-02-20 09:25:00 37 Debbie [facility] Body height 2022-02-20 09:25:00 162.6 cm [facility] Body weight 2022-02-20 09:25:00 96.163 kg [facility] BMI 2022-02-20 09:25:00 36.39 kg/m2 [facility] Procedures Procedure Date / Time Performed Performing Clinician Source AC PANEL 20 + LACTIC ACID 2024-02-08 20:47:00 Christina Villarreal [facility] XR CHEST 1 VW 2024-02-08 19:47:00 Christina Villarreal [facility] URINALYSIS 2024-02-08 19:36:00 [facility] MAGNESIUM 2024-02-08 19:25:00 [facility] TROPONIN I 2024-02-08 19:25:00 [facility] COMP. METABOLIC PANEL ([id number]) 2024-02-08 19:25:00 Christina Villarreal [facility] ETHANOL 2024-02-08 19:25:00 [facility] CBC WITH DIFF 2024-02-08 19:25:00 Christina Villarreal [facility] N-TERMINAL PRO-BNP 2024-02-08 19:25:00 Christina Villarreal [facility] EKG-12 LEAD 2024-01-14 12:00:51 Jac Navarro [facility] LIPASE 2024-01-14 11:11:00 Jac Navarro [facility] TROPONIN I 2024-01-14 11:11:00 Jac Navarro [facility] COMP. METABOLIC PANEL ([id number]) 2024-01-14 11:11:00 Jac Navarro [facility] ETHANOL 2024-01-14 11:11:00 Jac Navarro [facility] CBC WITH DIFF 2024-01-14 11:11:00 Jac Navarro [facility] N-TERMINAL PRO-BNP 2024-01-14 11:11:00 Jac Navarro [facility] COVID-19 (ID NOW RAPID TESTING) 2024-01-14 11:11:00 Jac Navarro [facility] CONSENT/REFUSAL FOR DIAGNOSIS AND TREATMENT 2024-01-14 10:44:32 Doctor Unassigned, [place] [facility] LIPASE 2023-12-23 04:17:00 Tyler Rowe Un [facility] COMP. METABOLIC PANEL ([id number]) 2023-12-23 04:17:00 Tyler Rowe [facility] CBC WITH DIFF 2023-12-23 04:17:00 [facility] 2023-12-23 04:17:00 Tyler Rowe Un [facility] CONSENT/REFUSAL FOR DIAGNOSIS AND TREATMENT 2023-12-23 03:40:32 Doctor Unassigned, [place] [facility] CT ABDOMEN PELVIS W CONTRAST 2023-12-22 02:31:05 Melinda Maciel [facility] LIPASE 2023-12-22 01:58:00 Melinda Maciel [facility] COMP. METABOLIC PANEL ([id number]) 2023-12-22 01:58:00 Melinda Maciel [facility] ETHANOL 2023-12-22 01:58:00 Melinda Maciel [facility] CBC WITH DIFF 2023-12-22 01:58:00 Singer [facility] PROTHROMBIN TIME / INR 2023-12-22 01:58:00 Wali Maciel [facility] URINALYSIS 2023-12-22 01:58:00 Melinda Maciel [facility] CONSENT/REFUSAL FOR DIAGNOSIS AND TREATMENT 2023-12-22 01:19:14 Doctor Unassigned, [place] [facility] NOTICE OF PRIVACY PRACTICES 2023-11-11 01:24:24 Doctor Unassigned, [place] [facility] CONSENT/REFUSAL FOR DIAGNOSIS AND TREATMENT 2023-11-11 01:23:54 Doctor Unassigned, [place] [facility] COVID-19 (ID NOW RAPID TESTING) 2023-10-27 07:09:00 Jac Navarro [facility] NOTICE OF PRIVACY PRACTICES 2023-10-27 06:49:48 Doctor Unassigned, [place] [facility] CONSENT/REFUSAL FOR DIAGNOSIS AND TREATMENT 2023-10-27 06:47:40 Doctor Unassigned, [place] [facility] CT ABDOMEN PELVIS W CONTRAST 2022-10-14 17:33:00 Singer [facility] XR CHEST 1 VW 2022-10-14 17:10:37 Singer [facility] TROPONIN I 2022-10-14 16:37:00 Melinda Maciel [facility] COMP. METABOLIC PANEL ([id number]) 2022-10-14 16:37:00 Singer [facility] CBC WITH DIFF 2022-10-14 16:37:00 Singer [facility] PROTHROMBIN TIME / INR 2022-10-14 16:37:00 Wali Maciel [facility] URINALYSIS 2022-10-14 16:37:00 Melinda Maciel [facility] N-TERMINAL PRO-BNP 2022-10-14 16:37:00 Maciel, Melinda [facility] CONSENT/REFUSAL FOR DIAGNOSIS AND TREATMENT 2022-10-14 15:56:36 Doctor Unassigned, [place] [facility] CONSENT/REFUSAL FOR DIAGNOSIS AND TREATMENT 2022-03-12 10:03:12 Doctor Unassigned, [place] [facility] XR CHEST 1 VW 2022-02-20 09:59:00 Christy Holliday [facility] LIPASE 2022-02-20 09:30:00 Christy Holliday [facility] TROPONIN I 2022-02-20 09:30:00 Christy Holliday [facility] COMP. METABOLIC PANEL ([id number]) 2022-02-20 09:30:00 Christy Holliday [facility] CBC WITH DIFF 2022-02-20 09:30:00 Christy Holliday [facility] N-TERMINAL PRO-BNP 2022-02-20 09:30:00 Christy Holliday [facility] NOTICE OF PRIVACY PRACTICES 2022-02-20 09:15:02 Doctor Unassigned, [place] [facility] CONSENT/REFUSAL FOR DIAGNOSIS AND TREATMENT 2022-02-20 09:14:47 Doctor Unassigned, [place] [facility] Encounters Start Date/Time End Date/Time Encounter Type Admission Type Attending [facility] Care Department Encounter ID Source 2024-02-08 20:38:00 2024-02-08 21:40:00 Emergency X KEISHA DAVENPORT [facility] ERT [id number] [facility] 2024-02-08 20:38:00 2024-02-08 21:40:00 Emergency Keisha Davenport [facility] 1.2.840.114 350.1.13.10 4.2.7.2.686 [id number] 084 [id number] [facility] 2024-02-08 14:08:00 2024-02-08 17:06:00 Emergency Christina Villarreal [facility] 1.2.840.114 350.1.13.10 4.2.7.2.686 [id number] [facility] 2024-01-14 04:46:00 2024-01-14 06:23:00 Emergency X JAC NAVARRO [facility] ERT [id number] [facility] 2024-01-14 04:46:00 2024-01-14 06:23:00 Emergency Jac Navarro [facility] 1.2.840.114 350.1.13.10 4.2.7.2.686 [id number] [id number] [facility] 2023-12-22 21:51:00 2023-12-22 23:13:00 Emergency X TYLER ROWE [facility] ERT [id number] [facility] 2023-12-22 21:51:00 2023-12-22 23:13:00 [facility].2.[facility].114 350.1.13.10 4.2.7.2.686 [id number] [facility] 2023-12-21 19:36:00 2023-12-21 21:52:00 Emergency X MELINDA MACIEL [facility] ERT [id number] [facility] 2023-12-21 19:36:00 2023-12-21 21:52:00 Emergency Melinda Maciel [facility] 1.2.840.114 350.1.13.10 4.2.7.2.686 [id number] [id number] [facility] 2023-11-10 19:29:00 2023-11-10 20:14:00 Emergency X CHRISTY [facility]LLIDAY [facility] ERT [id number] [facility] 2023-11-10 19:29:00 2023-11-10 20:14:00 Emergency Christy Holliday [facility] 1.2.840.114 350.1.13.10 4.2.7.2.686 [id number] [id number] [facility] 2023-10-27 00:49:00 2023-10-27 01:41:00 Emergency X JAC NAVARRO [facility] ERT [id number] [facility] 2023-10-27 00:49:00 2023-10-27 01:41:00 Emergency Jac Navarro [facility] 1..840.114 350.1.13.10 4.2.7.2.686 [id number] [id number] [facility] 2023-07-15 00:00:00 2023-07-15 00:00:00 Outpatient DARIEN LOBO [id number] [facility] 2023-06-16 11:30:00 2023-06-16 11:30:00 Outpatient DARIEN LOBO [id number] [facility] 2023-05-18 00:00:00 2023-05-18 00:00:00 Outpatient MARIA ELENA CHAN [id number] [facility] 2022-10-14 10:07:00 2022-10-14 14:39:00 Emergency Christen SINGER [facility] ERT [id number] [facility] 2022-10-14 10:07:00 2022-10-14 14:39:00 Emergency Melinda Maciel [facility] 1..840.114 350.1.13.10 4.2.7.2.686 [id number] [facility] 2022-03-12 05:15:00 2022-03-12 06:41:00 Emergency X CHRISTY [facility] ERT [id number] [facility] 2022-03-12 05:15:00 2022-03-12 06:41:00 Emergency Christy Holliday [facility] ..840.114 350.1.13.10 4.2.7.2.686 [id number] [facility] 2022-02-20 04:17:00 2022-02-20 07:16:00 Emergency X CHRISTY [facility]IDAY [facility] ERT [id number] [facility] 2022-02-20 04:17:00 2022-02-20 07:16:00 Emergency Christy Holliday [facility] 1.2.840.114 350.1.13.10 4.2.7.2.686 [id number] [facility] 2021-02-03 11:10:00 2021-02-03 11:10:00 Outpatient R DENISE SUNG [facility] [id number] [facility] 2021-01-13 11:20:00 2021-01-13 11:20:00 Outpatient [facility] [id number] [facility] 2020-11-10 08:20:00 2020-11-10 08:20:00 Outpatient KARLEY ESTRADA [facility] [id number] [facility] Results Test Description Test Time Test Comments Results Result Co mments Source [facility] + Lactic [id number] 20:52:47* Test Item Value Reference Range Interpretation Comme nts PH (test code = 2) 7.39 7.35-7.45 PCO2 (test code = 7882238755) 42 35-45 PO2 (test code = 5456617992) 76 80-100 L HCO3 (test code = 9226245587) 25 22-26 BE (test code = 2013839326) -0.1 -3.0-3.0 THB (test code = 9696626259) 14.3 g/dL 13.5-18.0 %O2HB (test code = 5803528885) 85.8 % 94.0-99.0 L %COHB ART (test code = 1413296549) 9.0 % 0.0-1.5 H %METHB ART (test code = 0726964056) 0.3 % 0.4-1.5 L VOL%O2 ART (test code = 4644656838) 17.3 % 15.0-23.0 NA (test code = 8281973259) 140 mmol/L 135-145 K+ (test code = 4876350203) 4.1 mmol/L 3.5-5.0 AC CA IONZ (test code = 7254839566) 4.50 mg/dL 4.50-5.30 GLUCOSE (test code = 5641340620) 105 mg/dL 70-110 LACTIC ACID (test code = 7544710122) 2.60 mmol/L 0.50-2.20 H Lab Interpretation (test cod e = 58035-6) Abnormal [facility] CenterTroponin [id number] 20:34:14* Test Item Value Reference Range Interpretation Comme nts TROPONIN I (test code = 6599831163) 0.008 ng/mL <=0.034 LOUISE (test code = [...] of biotin. Lab Interpretation (test code = 06005-4) Normal [facility] CenterN-Terminal Vwq-[id number] 20:31:35* Test Item Value Reference Range Interpretation Comme nts NT-proBNP (test code = 44936-8) 188 pg/mL <=125 LOUISE (test code = LOUISE) Result Indeterminate-Consid er causes of NT-proBNP elevation other than Heart failure such as acute coronary syndrome, pulmonary embolism, pulmonary hypertension, sepsis, stroke, and renal dysfunction. Lab Interpretation (test code = 29149-4) Abnormal [facility] CenterComp. Metabolic Panel (15394)2024-02-08 20:21:10* Test Item Value Reference Range Interpretation Comme nts NA (test code = 3484307864) 135 mmol/L 135-145 K (test code = 5773643090) 4.5 mmol/L 3.5-5.0 CL (test code = 0769069492) 100 mmol/L 98-108 CO2 TOTAL (test code = 0481980243) 22 mmol/L 23-31 L AGAP (test code = 7035702529) 13 2-16 BUN (test code = 6825402418) 8 mg/dL 7-23 GLUCOSE (test code = 4290858044) 97 mg/dL 70-110 CREATININE (test code = 2160-0) 0.65 mg/dL 0.60-1.25 TOTAL BILI (test code = 0173618621) 0.4 mg/dL 0.1-1.1 CALCIUM (test code = 2994307894) 9.4 mg/dL 8.6-10.6 T PROTEIN (test code = 4869768878) 8.2 g/dL 6.3-8.2 ALBUMIN (test code = 0282371124) 4.7 g/dL 3.5-5.0 ALK PHOS (test code = 1590200877) 76 U/L 34-122 ALTv (test code = 1742-6) 33 U/L 5-50 AST(SGOT) (test code = 8782814042) 54 U/L 13-40 H eGFR (test code = 14043-9) 111.3 mL/min/1.73m2 CKD-EPI eGFR (2020). Assuming creatinine has been stable day-to-day for at least three months, the eGFR indicates Category G1 (>= 90 mL/min/1.73 m2) Lab Interpretation (test code = 73847-1) Abnormal [facility] CenterMagnesium2024-04-01 20:21:10* Test Item Value Reference Range Interpretation Comme nts MAGNESIUM (test code = 4028150476) 2.1 mg/dL 1.7-2.4 Lab Interpretation (test cod e = 27317-1) Normal [facility] CenterXR CHEST 1 [id number] 20:07:21EXAM: XR CHEST 1 VW COMPARISON: 01/14/2024 HISTORY: sob FINDINGS: Lungs: Slightly hyperexpanded lungswith subtle progression of interstitialprominence. Trace pleural effusions could be present. Heart/Mediastinum: Stable cardiomegaly. Bones and soft tissues: No osseous abnormality is visualized.[facility] Cbc with [id number] 20:04:26* Test Item Value Reference Range Interpretation [...] 33.8 g/dL 31.2-35.0 RDW-SD (test code = 13257-5) 50.5 fL 38.5-51.6 RDW-CV (test code = 788-0) 14.3 % 12.1-15.4 PLT (test code = 777-3) 206 150-328 MPV (test code = 40549-0) 9.1 fL 9.8-13.0 L NRBC/100 WBC (test code = 3757614455) 0.0 0.0-10.0 NRBC x10^3 (test code = 1882098737) See_Comment [Automated messa ge] The system which generated this result transmitted reference range: 10*3/?L. The reference range was not used to interpret this result as normal/abnormal. GRAN MAT (NEUT) % (test code = 770-8) 81.0 % IMM GRAN % (test code = 3836478606) 1.20 % LYMPH % (test code = 736-9) 10.9 % MONO % (test code = 5905-5) 6.8 % EOS % (test code = 713-8) 0.0 % BASO % (test code = 706-2) 0.1 % GRAN MAT x10^3(ANC) (test code = 1107479800) 9.31 10*3/uL 1.99-6.95 H IMM GRAN x10^3 (test code = 8337863194) 0.14 10*3/uL 0.00-0.06 H LYMPH x10^3 (test code = 731-0) 1.25 10*3/uL 1.09-3.23 MONO x10^3 (test code = 742-7) 0.78 10*3/uL 0.36-1.02 EOS x10^3 (test code = 711-2) 0.06-0.53 L BASO x10^3 (test code = 704-7) 0.01-0.09 Lab Interpretation (test code = 24972-9) Abnormal [facility] CenterCOMP. METABOLIC PANEL (01992)2023-12-23 04:53:26* Test Item Value Reference Range Interpretation Comme nts NA (test code = 2145272388) 135 mmol/L 135-145 K (test code = 9531511744) 3.2 mmol/L 3.5-5.0 L CL (test code = 4356775954) 104 mmol/L 98-108 CO2 TOTAL (test code = 4754814078) 23 mmol/L 23-31 AGAP (test code = 6920197564) 8 2-16 BUN (test code = 2275391162) 11 mg/dL 7-23 GLUCOSE (test code = 6050013215) 82 mg/dL 70-110 CREATININE (test code = 2160-0) 0.64 mg/dL 0.60-1.25 TOTAL BILI (test code = 3457496257) 0.5 mg/dL 0.1-1.1 CALCIUM (test code = 8397609130) 8.8 mg/dL 8.6-10.6 T PROTEIN (test code = 6255097119) 6.7 g/dL 6.3-8.2 ALBUMIN (test code = 0720478427) 4.1 g/dL 3.5-5.0 ALK PHOS (test code = 2103628578) 46 U/L 34-122 ALTv (test code = 1742-6) 21 U/L 5-50 AST(SGOT) (test code = 7851689085) 43 U/L 13-40 H eGFR (test code = 84858-6) 111.8 mL/min/1.73m2 CKD-EPI eGFR (2020). Assuming creatinine has been stable day-to-day for at least three months, the eGFR indicates Category G1 (>= 90 mL/min/1.73 m2) Lab Interpretation (test code = 03896-3) Abnormal [facility] CenterLIPASE2024-02-14 04:53:26* Test Item Value Reference Range Interpretation Comme nts LIPASE (test code = 1009976477) 105 U/L 0-220 Lab Interpretation (test cod e = 25263-8) Normal [facility] CenterCBC WITH [id number] 04:34:24* Test Item Value Reference Range Interpretation [...] 33.0 g/dL 31.2-35.0 RDW-SD (test code = 13165-5) 50.9 fL 38.5-51.6 RDW-CV (test code = 788-0) 13.7 % 12.1-15.4 PLT (test code = 777-3) 232 150-328 MPV (test code = 48219-7) 8.7 fL 9.8-13.0 L NRBC/100 WBC (test code = 1881567455) 0.0 0.0-10.0 NRBC x10^3 (test code = 4007797381) See_Comment [Automated [employer] Systemsa ge] The system which generated this result transmitted reference range: 10*3/?L. The reference range was not used to interpret this result as normal/abnormal. GRAN MAT (NEUT) % (test code = 770-8) 58.8 % IMM GRAN % (test code = 7112709316) 0.90 % LYMPH % (test code = 736-9) 27.8 % MONO % (test code = 5905-5) 10.5 % EOS % (test code = 713-8) 1.3 % BASO % (test code = 706-2) 0.7 % GRAN MAT x10^3(ANC) (test code = 7763799384) 5.68 10*3/uL 1.99-6.95 IMM GRAN x10^3 (test code = 1441385068) 0.09 10*3/uL 0.00-0.06 H LYMPH x10^3 (test code = 731-0) 2.69 10*3/uL 1.09-3.23 MONO x10^3 (test code = 742-7) 1.02 10*3/uL 0.36-1.02 EOS x10^3 (test code = 711-2) 0.13 10*3/uL 0.06-0.53 BASO x10^3 (test code = 704-7) 0.07 10*3/uL 0.01-0.09 Lab Interpretation (test code = 54295-8) Abnormal [facility] CenterCT ABDOMEN PELVIS W [id number] 03:32:43Exam: CT Abdomen and Pelvis With Contrast, [...] acute osseous abnormality.Soft tissues: Small fat-containing inguinal hernias.[facility] CenterEthanol2024-02-13 02:32:24* Test Item Value Reference Range Interpretation Comme nts ALCOHOL (test code = 4078619728) 117 mg/dL LOUISE (test code = LOUISE) <10 Lhmfhaph11-206 Toxic>100 Depression of TEXTILE FINISHER>400 Fatalities Reported [facility] CenterComp. Metabolic Panel (97364)2023-12-22 02:31:43* Test Item Value Reference Range Interpretation Comme nts NA (test code = 2329974191) 133 mmol/L 135-145 L K (test code = 9158140997) 3.3 mmol/L 3.5-5.0 L CL (test code = 7890303122) 102 mmol/L 98-108 CO2 TOTAL (test code = 0688255106) 25 mmol/L 23-31 AGAP (test code = 3950296078) 6 2-16 BUN (test code = 8505137105) 11 mg/dL 7-23 GLUCOSE (test code = 7776616666) 75 mg/dL 70-110 CREATININE (test code = 2424293836) 0.51 mg/dL 0.60-1.25 L TOTAL BILI (test code = 6155592383) 0.5 mg/dL 0.1-1.1 CALCIUM (test code = 4036546736) 8.9 mg/dL 8.6-10.6 T PROTEIN (test code = 3403642785) 7.2 g/dL 6.3-8.2 ALBUMIN (test code = 6197526372) 4.5 g/dL 3.5-5.0 ALK PHOS (test code = 9792196370) 46 U/L 34-122 ALTv (test code = 1742-6) 15 U/L 5-50 AST(SGOT) (test code = 8800687504) 24 U/L 13-40 eGFR (test code = 15828-8) 119.7 mL/min/1.73m2 CKD-EPI eGFR (2020). Assuming creatinine has been stable day-to-day for at least three months, the eGFR indicates Category G1 (>= 90 mL/min/1.73 m2) Lab Interpretation (test code = 15585-1) Abnormal [facility] CenterLipase2024-02-13 02:31:43* Test Item Value Reference Range Interpretation Comme nts LIPASE (test code = 5659810855) 121 U/L 0-220 Lab Interpretation (test cod e = 07470-5) Normal [facility] CenterProthrombin Time / [id number] 02:21:02* Test Item Value Reference Range Interpretation Comme nts PROTIME PATIENT (test code = 5964-2) 10.5 10.1-12.6 INR (test code = 6301-6) 0.9 Normal INR <1.1; Warfarin Therapeutic range 2.0 to 3.0 or 2.5 to 3.5, depending upon the indications. Lab Interpretation (test code = 24338-0) Normal [facility] CenterCbc with Dnri1835-99-17 02:14:04* Test Item Value Reference Range Interpretation [...] 34.0 g/dL 31.2-35.0 RDW-SD (test code = 45329-8) 49.1 fL 38.5-51.6 RDW-CV (test code = 788-0) 13.5 % 12.1-15.4 PLT (test code = 777-3) 260 150-328 MPV (test code = 81477-6) 8.7 fL 9.8-13.0 L NRBC/100 WBC (test code = 3768670539) 0.0 0.0-10.0 NRBC x10^3 (test code = 7942562124) See_Comment [Automated messa ge] The system which generated this result transmitted reference range: 10*3/?L. The reference range was not used to interpret this result as normal/abnormal. GRAN MAT (NEUT) % (test code = 770-8) 64.3 % IMM GRAN % (test code = 9469861746) 0.90 % LYMPH % (test code = 736-9) 24.2 % MONO % (test code = 5905-5) 9.1 % EOS % (test code = 713-8) 0.7 % BASO % (test code = 706-2) 0.8 % GRAN MAT x10^3(ANC) (test code = 9811986161) 8.73 10*3/uL 1.99-6.95 H IMM GRAN x10^3 (test code = 2558141613) 0.12 10*3/uL 0.00-0.06 H LYMPH x10^3 (test code = 731-0) 3.28 10*3/uL 1.09-3.23 H MONO x10^3 (test code = 742-7) 1.23 10*3/uL 0.36-1.02 H EOS x10^3 (test code = 711-2) 0.10 10*3/uL 0.06-0.53 BASO x10^3 (test code = 704-7) 0.11 10*3/uL 0.01-0.09 H Lab Interpretation (test code = 49883-3) [facility] 10:16:22* Test Item Value Reference Range Interpretation Comments TROPONIN I (test code = 0866281914) 0.007 ng/mL See_Comment [Automated message] The system [...] of biotin. Lab Interpretation (test code = 25081-7) Normal [facility] KPA-JQC6853-11-14 10:13:01* Test Item Value Reference Range Interpretation Comme nts NT-proBNP (test code = 4506171884) 52 pg/mL See_Comment [Automated message] The system which generated this result transmitted reference range: <=125. The reference range was not used to interpret this result as normal/abnormal. LOUISE (test code = LOUISE) Biotin has been reported to cause a negative bias, interpret results relative to patient's use of biotin. Lab Interpretation (test code = 52135-3) [facility]40132[facility]20[facility]-20 10:04:02* Test Item Value Reference Range Interpretation Comme nts NA (test code = 4325131572) 137 mmol/L 135-145 K (test code = 8256107013) 3.6 mmol/L 3.5-5.0 CL (test code = 2255797248) 99 mmol/L 98-108 CO2 TOTAL (test code = 2353951480) 25 mmol/L 23-31 AGAP (test code = 7729776717) 2-16 BUN (test code = 8606084979) 6 mg/dL 7-23 L GLUCOSE (test code = 4894927638) 88 mg/dL 70-110 CREATININE (test code = 8159773827) 0.55 mg/dL 0.60-1.25 L TOTAL BILI (test code = 0589707828) 0.8 mg/dL 0.1-1.1 CALCIUM (test code = 5757410525) 8.9 mg/dL 8.6-10.6 T PROTEIN (test code = 9119789046) 7.5 g/dL 6.3-8.2 ALBUMIN (test code = 8622820819) 4.8 g/dL 3.5-5.0 ALK PHOS (test code = 4230060944) 113 U/L 34-122 ALTv (test code = 1742-6) 84 U/L 5-50 H AST(SGOT) (test code = 2846019312) 107 U/L 13-40 H eGFR (test code = 9601093799) mL/min/1.73m2 LOUISE (test code = LOUISE) Association [...] imaging tests). Lab Interpretation (test code = 61807-6) Abnormal [facility] CenterLIP[facility], CWBHB4181-59-65 10:03:21* Test Item Value Reference Range Interpretation Comme nts LIPASE (test code = 7466684025) 193 U/L 0-220 Lab Interpretation (test cod e = 84229-2) Normal [facility] WITH IMQY6175-79-99 09:39:17* Test Item Value Reference Range Interpretation Comme nts WBC (test code = 6690-2) See_Comment [Automated [employer]] The system which generated this result transmitted [...] g/dL 31.2-35.0 H RDW-SD (test code = 28036-1) 44.4 fL 38.5-51.6 RDW-CV (test code = 788-0) 11.9 % 12.1-15.4 L PLT (test code = 777-3) See_Comment [Automated Viscount Systemsa ge] The system which generated this result transmitted reference range: 150 - 328 10*3/?L. The reference range was not used to interpret this result as normal/abnormal. MPV (test code = 25195-4) 9.2 fL 9.8-13.0 L NRBC/100 WBC (test code = 7427254081) See_Comment [Automated [employer] ssage] The system which generated this result transmitted reference range: 0.0 - 10.0 /100 WBCs. The reference range was not used to interpret this result as normal/abnormal. NRBC x10^3 (test code = 1315620053) <0.01 See_Comment [Automated messa ge] The system which generated this result transmitted reference range: 10*3/?L. The reference range was not used to interpret this result as normal/abnormal. GRAN MAT (NEUT) % (test code = 770-8) 69.9 % IMM GRAN % (test code = 8249755307) 1.50 % LYMPH % (test code = 736-9) 18.9 % MONO % (test code = 5905-5) 7.0 % EOS % (test code = 713-8) 1.9 % BASO % (test code = 706-2) 0.8 % GRAN MAT x10^3(ANC) (test code = 8517075011) 7.15 10*3/uL 1.99-6.95 H IMM GRAN x10^3 (test code = 9450937470) 0.15 10*3/uL 0.00-0.06 H LYMPH x10^3 (test code = 731-0) 1.93 10*3/uL 1.09-3.23 MONO x10^3 (test code = 742-7) 0.72 10*3/uL 0.36-1.02 EOS x10^3 (test code = 711-2) 0.19 10*3/uL 0.06-0.53 BASO x10^3 (test code = 704-7) 0.08 10*3/uL 0.01-0.09 Lab Interpretation (test code = 88936-1) Abnormal [facility] Notes Date/Time Note Provider Source 2024-02-08 21:37:56 RWkgTtRQ52dpx4ojjnMbaeW88S+ZlkfFHgJ le/IDe4UW0WRED7+V70V+vj6T3+kg2682-7 02-07T21:37:56 Pt left AMA 39612-5Isowpvtns department JgbcZP2370-29-74Y20:38:11Emergency department NoteTXT1.2.840.730950.1.13.104.2.7. 2.500891|[id number] for patient ckdt70564-8ZbafDBBKSJSUGDYDkgzlvddf C-CDA narrative foqo382119449KpbnrKylie Foster RN[facility] - [address] EwniD[id number] 5HDJDGAPKQUVRNIPOPSTISQ4907-84-19O8 1:38:111.2.840.869524.1.72.3.15|1.2 .840.331173.1.13.104.2.7.2.727879_2 [id number] Kylie Foster RN [facility] 2024-02-08 21:32:00 D876yCwdTV/LjICljYETdskydwWFKF7AhhI 9g/K88HjQxTilWL7XpEFRIIT3s3tT9482-9 02-07T21:32:00 Patient leaving AMA after self removing [...] ambulatory with steady gait, [place] 86740-8Vuiohmbso department VzzbIG3964-53-39V84:40:32[facility] NoteTXT1.2.840.221774.1.13.104.2.7. 2.108361|[id number] for patient ipoz65226-4KcckXYITIQBWSWIOuzooeeel C-CDA narrative text[address] Kb[id number] 8OGXRJOHGJIVMXYUCIEHJOU2425-32-70X9 1:40:321.2.840.327914.1.72.3.15|1.2 .840.739311.1.13.104.2.7.2.727879_2 [id number] [facility] 2024-02-08 20:54:38 gO30JtD+jA3Cg6mP9qdMQoBc/bCPCdxwEFA TfmEsfzDLnnbXFOSUwf5Tg9Iq1Gnb2422-9 02-07T20:54:38 Pt states he uses O2 at home, portable O2 is broken 99682-1Wepuweecv department YqsnAI7632-50-55P26:55:13[facility] NoteTXT1.2.840.129509.1.13.104.2.7. 2.112308|[id number] for patient ypya03911-8RguyKAEOIYGPBAJSjryuxsbn C-CDA narrative [id number] 9STJKKMOHFYYUYJYKQOSLOO1475-76-43T7 0:55:131.2.840.612905.1.72.3.15|1.2 .840.202521.1.13.104.2.7.2.727879_2 [id number] [facility] 2024-02-08 20:51:11 el/w2YTNZ+eCiwFdvSqdjDfi08ZK/x7DhYW 00zdYf2eLt8maucQ5htIiAb+33qYa9516-8 02-07T20:51:11 Pt ambulates with cane 66794-6Vxngsyoym department DxqvKQ2684-86-81Z07:51:26[facility] department NoteTXT1.2.840.978473.1.13.104.2.7. 2.933181|2463321755OOAcaksfyqu for patient vykl57345-0BtjrIPUIEWSXKFYWzyulxlrm C-CDA narrative [id number] 9QGZKEJCXJSXSRPJYNJNSPV5105-77-72P0 0:51:261.2.840.979588.1.72.3.15|1.2 .840.375975.1.13.104.2.7.2.727879_2 [id number] [facility] 2024-02-08 20:43:13 5EmtgawmHJtSjPYBrA493hC/9GbsgI+2tFK wSCRRa/jxCVb/9ffxnwQNTmp/rFWn1761-5 02-07T20:43:13 CC: Pt arrives SOB after leaving TERRIL earlier in the shift. He reports he [...] 3 BC powders and drank 3 beers." 79173-5Skchxtamg department Triage zwuhDW5061-33-32P65:48:36[facility] department Triage noteTXT1.2.840.532052.1.13.104.2.7. 2.186560|[id number] for patient iopf97358-8Wnyjkqgyk department NoteLNNARRATIVEFormatted C-CDA narrative gqfi038882330Jactgbyee [address] VdblEwwlpftxbOdthtagyyWDQU827956465 0HKJFGHRAHUDLMJOGIUPLDF5687-67-29H1 0:48:361.2.840.121749.1.72.3.15|1.2 .840.219252.1.13.104.2.7.2.727879_2 [id number] Leah King RN [facility] 2024-02-08 17:04:05 s4Bvbpc+lJu5KeIHCYtWQOPuvTiIW5rz6Q+ vXQOnp/Gafi/Os3SvBt8RXWh8JuXw7940-2 7:04:05 Patient walked to the nurses station and stated "I have another emergency and I have to leave right now. I need this IV taken out immediately."Encouraged patient to stay and he stated "I have to leave immediately and I don't want to take this out myself" IV d/c at this time and patient ambulated out of the department with a steady gait. 71649-1Vietgjhem department YczcVJ5797-69-98L78:05:22[facility] department NoteTXT1.2.840.348848.1.13.104.2.7. 2.914982|[id number] for patient hmad41611-6QvsiDTGGOODABXIFqutmlpgn C-CDA narrative lyuh608725936Drhk M Hayes RNUT[address] AnukVtxnmsaeaCpnwenyiyQTHN570810446 5OMJBQBZJUSVGCQIWISHYTM2294-17-42Q4 7:05:221.2.840.233687.1.72.3.15|1.2 .840.225276.1.13.104.2.7.2.727879_2 [id number] Allison Zhang RN [facility] 2024-02-08 14:23:02 rbjsihLfyfDpjQzO6g5yoBj1kR9U/Z3pRfm uswrhKjDYJwQ/iCbBokDc3EjLipAh5597-9 4:23:02 Pt ambulates with a cane 11662-6Iuujjawdw department PzdeLB7026-14-57A80:23:12[facility] department NoteTXT1.2.840.504669.1.13.104.2.7. 2.687159|4920332338XKGinnatvgr for patient ovfq82011-6ZtnkOQYWKTQFUPFZpchzaqzk C-CDA narrative bwlm269617897Mfrmi M Cristian MACHUCA[address] StreetCsjwGzasufbkfCqyvxskdhHWSZ133447998 2MUNAFLAFJFHCJICLDXMGBS5662-60-71T4 4:23:121.2.840.237081.1.72.3.15|1.2 .840.633797.1.13.104.2.7.2.727879_2 [id number] Kylie Carter Cristian MACHUCA [facility] 2024-02-08 14:13:15 T7y974/76TqFC1Vl5pmhbluGvgRDeWnWsme QJbaidSI7NT9T3KpQPz2MQysvKUEs8549-3 4:13:15 Pt has taken 8-packets of BC powder. [...] only thing that helps." Face is flushed. 00040-5Qqcgmsjxl department Triage zzgvSD1359-69-88Q14:17:26Emer[facility]cy department Triage noteTXT1.2.840.170985.1.13.104.2.7. 2.368711|6189697388XTRkdskojgb for patient kbby89817-0Qmgameibe department NoteLNNARRATIVEFormatted C-CDA narrative oque846508330Ymxzyef Fief RNUT[address] [id number] 9LSWLLXIEYYFCEHZPBLRVMZ4473-60-29W4 4:17:261.2.840.712900.1.72.3.15|1.2 .840.776483.1.13.104.2.7.2.727879_2 [id number] Hali Aviles RN [facility] 2024-01-14 06:16:25 3Uar7XegKh5Na1s7cwXTXbs5Io4X/FhSiR0 EE9aMF7iohrePts+bFxB4oWtawpDj5226-4 06:16:25 Pt given printed and verbal discharge [...] w/d, pt leaving in no apparent distress, 65419-2Nwfvrordi department FwvfCW6352-62-32D19:17:20[facility] NoteTXT1.2.840.476373.1.13.104.2.7. 2.783548|[id number] for patient fjty66308-8IdjuZVNQVVXRGJJEggyjafhw C-CDA narrative textUT[address] NuxpG[id number] 0NVEKJSKGQCLLQSPESBYDXX4466-04-63W4 6:17:201.2.840.531102.1.72.3.15|1.2 .840.492664.1.13.104.2.7.2.727879_2 [id number] [facility] 2024-01-14 04:49:43 d9VIleaTVGwKg3i6qgO5UPVctb9Mc+E0JFo 9n6MH8uAe3bjfFTwnYckCk8ehPgJb5638-6 04:49:43 CC: "My COPD is acting up [...] ext without difficulty, amb with steady gait 61044-2Czzuhtkid department Triage rsirVH1041-85-66L61:55:49[facility] Triage noteTXT1.2.840.235286.1.13.104.2.7. 2.447536|9411289205SWRzzzzbrig for patient vdtr98157-3Gzwtjcqio department NoteLNNARRATIVEFormatted C-CDA narrative mdvi030883211Qbgvln R Shehadeh RN[address] TjxmNbkmnsojpHufsniwheXMJM574376576 9WGCKCHBQXSCQIDXFCKAJIF7450-73-62D3 4:55:491.2.840.200144.1.72.3.15|1.2 .840.142983.1.13.104.2.7.2.727879_2 [id number] Leah King RN [facility] 2024-01-14 04:43:00 Umn52qlnP2kxSDfUheAsa8v9HmVemf4X6qc djsmrB+8nbh0RnmzqyeQo41vTn3d/07T04:43:00Associated Order(s): EKG-12 Lead ROUTINE ONCEPre-Procedure Diagnose(s): Chest pain, unspecified typePost-Procedure Diagnose(s): Chest pain, unspecified type [facility] Emergency Department NotePatient Name: Randy Edwards of : 1970 53 year old maleTreatment Room: AZ1/QY2Wlbgoum Record Number: [id number] Care Physician: Adrianna King Escorted by: Family [5]Mode of Arrival: Personal means [1]EMS 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 METABOLIC PANEL (78410) - AbnormalResult Value Ref RangeNA 138 135 [...] 49 (*) 13 - 40 U/LeGFR 93.3 mL/min/1.18q1ZSN WITH DIFF - AbnormalWBC 11.59 (*) 4.20 [...] 220 U/LCOVID-19 (ID NOW RAPID TESTING) - SmohbsZZLS-UuP-2 Rapid ID NOW Not Detected Not DetectedETHANOLALCOHOL 62 mg/dLEKG:If EKG completed, see Procedure Note.Orders and Treatments:Orders Placed This EncounterProcedures XR CHEST 1 VW TROPONIN I COMP. METABOLIC PANEL (42651) LIPASE, SERUM CBC WITH DIFF N-Terminal Pro-Bnp Ethanol COVID-19 (ID NOW TESTING) Lab Only COVID Interpretation O2 Per ProtocolOrders Placed This EncounterMedications morpHINE (4 mg/mL) injection 4 mg ondansetron (ZOFRAN (PF)) injection 4 mg ipratropium-albuteroL (DUONEB) 0.5 mg-3 mg(2.5 mg base)/3 mL nebulizer solution 3 mLFirst Provider Eval:ED EventsDate/Time Event User Qtjgpugd26/07/24 0510 Medical Screening Begins JAC NAVARRO MD --01/14/24 0510 First Provider Evaluation JAC NAVARRO MD --ED COURSEDiagnosis/Impression as of 01/14/24 0605Chest pain, unspecified typeBronchitisProcedures:EKG-12 Lead ROUTINE ONCEDate/Time: 01/14/2024 5:24 AMPerformed by: Jac Navarro MDAuthorized by: Jac Navarro MDECYovani interpreted by ED Physician in the absence of a general partner: yesPrevious ECG:Previous ECG: Compared to currentSimilarity: No [...] on fileFollow-up:Electronically signed by:Jac Navarro MD01/14/24 0600 50067-3Sqvjcezks Emergency department LxviVP2247-45-90L54:00:50Physician Emergency department NoteTXT1.2.840.516335.1.13.104.2.7. 2.121313|[id number] for patient jhgi20454-5Epeudzpyr department NoteLNNARRATIVEFormatted C-CDA narrative text[address] Ksh[id number] 8YFJAUIUIFIXHTPMTZNPXSB2895-32-63W8 6:00:501.2.840.787119.1.72.3.15|1.2 .840.785253.1.13.104.2.7.2.727879_2 [id number] [facility] 2023-12-22 23:12:16 OfR1+klTonPfwL5PTlRE8kfWGwc6UtLPyD8 iOCsNfstgXUVgJoDc91z8ElPmc4wT7281-2 12-22T23:12:16 Pt given printed and verbal discharge [...] with steady gait, in no apparent distress, 35064-2Acbqvxzsn department HrjvRS8611-01-64I51:13:50[facility] NoteTXT1.2.840.599670.1.13.104.2.7. 2.300799|2026152981QPMrrocdehm for patient askb34322-2LwhfJBJDMBZJROMFbdcplqcw C-CDA narrative ndno180831966KadpuMary Magaña RN[address] WtntXqrcxaopzBzpgsjoksICHY717118765 5WNGKLVRAOWGJGGGAOOZMUM2383-40-88C2 3:13:501.2.840.353628.1.72.3.15|1.2 .840.734491.1.13.104.2.7.2.727879_2 [id number] Mary Magaña RN [facility] 2023-12-22 21:41:55 fJOlL8TttJ94LfAueredwGPoCMYEIDtcZUg yHDJTHoqolqPfpYkqr7q+8+QKT5X10719-8 12-22T21:41:55 Pt arrives ambulatory to ED reporting bleeding with stools and 10/10 abdominal pain. States he was here last night but had to leave before receiving results d/t having to work. Says the pain became worse so he came back in. 12624-5Qzbmmscbo department Triage viuyXD5006-68-60N78:48:52[facility] Triage noteTXT1.2.840.466676.1.13.104.2.7. 2.365149|[id number] for patient ziem37204-1Lzaskrbmc department NoteLNNARRATIVEFormatted C-CDA narrative [id number] L Williams RN[address] CdyqDcmdbnqrtQaxhayhghZTDW268995750 0EIOYDSGACFIDICRCJHZJMQ3074-98-18Q8 1:48:521.2.840.812364.1.72.3.15|1.2 .840.540148.1.13.104.2.7.2.727879_2 [id number] Leah Lizama RN [facility] 2023-12-21 21:31:00 Uq1LfCbHA+l8UiA9vA/KP0Q0Jwtg62Sp4v0 11zog+OBoTDXWJ1T+tlw0Ts4z0c9U8538-5 12-21T21:31:00 Patient leaving AMA,discussed risks of leaving against medical advice, Dr. Maciel aware and notified of patient's decision.Patient encouraged to seek medical attention for any new/prolonged/worsening of symptoms and stressed importance of follow up with a medical provider as soon as possible. AMA form explained, patient signed form.IV d'cd, dressing to site.Patient leaving ambulatory with steady gait, appears in no distress. 24735-1Nqezaxhqm department DsbjDA7802-17-40A20:38:39[facility] department NoteTXT1.2.840.541685.1.13.104.2.7. 2.069837|6175072711RLPmcteciuw for patient bmpj19317-4XbmdUFSOUZESEVFUxgxrdvmf C-CDA narrative dviv524901913BsmoaMary Magaña RN[id number] 9MTMWOTYNEHTSGFPPTVWKJD8201-52-40I5 1:38:391.2.840.324971.1.72.3.15|1.2 .840.395944.1.13.104.2.7.2.727879_2 [id number] Mary Magaña RN [facility] 2023-12-21 21:30:00 5Pw6Kf+KisA6YGU01dnvgOugUxLmWVOTyrq 1x3LR+npNUX0aV1MF44dBD/zeWkcJ4451-9 12-21T21:30:00 Pt wished to leave AMA. Pt states " yall were wonderful but 3am come real early." 98045-8Ggbzigzwv department EwnjKZ8552-70-78D00:36:58[facility] department NoteTXT1.2.840.402040.1.13.104.2.7. 2.505608|[id number] for patient eaot38132-2RgcrHPDUVKQKXJCZdaksidte C-CDA narrative text[id number] 5KMLTJLPETSBIDLUXZSFJBY5645-26-20B6 1:36:581.2.840.373569.1.72.3.15|1.2 .840.308661.1.13.104.2.7.2.727879_2 [id number] [facility] 2023-12-21 21:26:22 QUizzLkWthJoixVX2j0OdSxIoSGVppnVcGD 6BQLlI6hVFn0omf0GLjCA3u3PnVef7917-1 12-21T21:26:22 Pt asking to go outside and smoke, wants to go home and eat. Pt educated on risks of leaving AMA. Provider informed pt is in pain. 23974-6Abpkjmtgs department EemaJH8586-68-13G27:33:35[facility] department NoteTXT1.2.840.722975.1.13.104.2.7. 2.177302|[id number] for patient osbi70880-6UckeWBWTRWYOKPQDfkdxzoco C-CDA narrative gnuo669107421Qvnqbi R Shehadeh RN[address] HnlxEkwucfxphQcavntsyvWRRM930699448 3NJJCLQPBPIXDNMATJWTTPP7486-03-68Z9 1:33:351.2.840.795588.1.72.3.15|1.2 .840.127852.1.13.104.2.7.2.727879_2 [id number] Leah King RN [facility] 2023-12-21 19:31:50 7ux9+1azQCq0SbaqP4nZI7oGHaKVd7rAfow BlZXkaB5lsJoUl6yHzSMx8ij+OKwZ2680-3 12-21T19:31:50 Pt arrived ambulatory with complaints of bright red rectal bleeding and generalized abdominal pain this afternoon. Pt states his stool was normal consistency but continuous bright red blood. 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 States he vomits all the time but not something new today. 92381-4Gkzrrayuz department Triage jcqjZC0460-47-60L43:33:28[facility] Triage noteTXT1.2.840.716582.1.13.104.2.7. 2.617137|9391390422RGIqmgvtqvc for patient ohqf59688-7Skutaswtt department NoteLNNARRATIVEFormatted C-CDA narrative bzhl579816924Bnlmdj D Roman RN[address]G[id number] 4QAVTILYXGOGYAUDLSLCTIN6416-13-69H3 9:33:281.2.840.584404.1.72.3.15|1.2 .840.228282.1.13.104.2.7.2.727879_2 [id number] Gabi Esqueda RN [facility] 2023-11-10 20:13:39 laWovMFVZb0AwlVKXLm9NapL23l/TlPnCn4 [facility]/YS493wU6PTdBlOCb4dxoAUboG4520-9 11-10T20:13:39 Pt requesting to leave AMA. ERP notified. Pt counseled to remain, risks of leaving AMA including discussed with pt. Pt continued to decline further ER evaluation at this time. AMA papers signed, witnessed, and placed on patient's chart. Pt left ambulatory. VS stable, no ataxia noted, GCS 15, A&Ox4. 76689-7Neyrsukpp department TolbSJ8831-97-54Q60:13:52[facility] department NoteTXT1.2.840.937666.1.13.104.2.7. 2.560137|1361443569UUCwjgjpxpc for patient ufvu52335-2TesgKAFMEWVYANJDvcdtvhps C-CDA narrative xeyv489694110PjsaooBriseida Medrano RN[address] StreetHtivJydzlxgumZuvtnnpbmXBPC527339567 3XGNWNVDOBNCLTRGGKNNEYK3832-86-06H4 0:13:521.2.840.532438.1.72.3.15|1.2 .840.796030.1.13.104.2.7.2.727879_1 [id number] Briseida Medrano RN [facility] 2023-11-10 19:30:29 o2Or5/CvF2q1T5kfb+7HHtdmVtxF/EYpEtf PGKXftF9DLlD/yqFw94cBg3LU0l1b0781-7 11-10T19:30:29 Patient arrived to ED c/o SOB and COPD exacerbation. Symptoms started this morning. Patient wears 3L NC at home. Patient is a smoker. Patient states having the chills, diarrhea, and vomiting. States having sharp pains in chest from coughing. 49921-0Zynibvxng department Triage [id number]:35:27[facility] Triage [id number]. 2.157925|[id number] for patient qtti03740-7Ihpyyonlj department NoteLNNARRATIVEFormatted C-CDA narrative [id number]-Betnc McInnis RN[address] T[id number] 5UGACHJYUFGRROWQUBORYJA0928-87-92W1 9:35:271.2.840.705053.1.72.3.15|1.2 .840.585326.1.13.104.2.7.2.727879_1 [id number] Sreedhar Gomez RN [facility]
[2024-02-14] MEDS ORDERED: METHYLPREDNISOLONE 125 MG INJ ONE (10:52)
[2024-02-14] MEDS ORDERED: CEFTRIAXONE 1000 MG/VIAL ONE (10:52)
[2024-02-14] MEDS ORDERED: IPRATROPIUM BROM 0.5MG/2.5ML ONE ×2 (10:52→13:13)
[2024-02-14] MEDS ORDERED: LEVALBUTEROL 1.25 MG/3 ML NEB ONE (10:52)
[2024-02-14] MEDS ORDERED: NA CHLORIDE 0.9% 1,000 ML ONE (10:53)
[2024-02-14] MEDS ORDERED: NA CHLORIDE 0.9% 100 ML ONE ×2 (10:53→11:39)
[2024-02-14 10:59] LABS: PT Prothrombin Time 11.6 SECONDS (9.5-12.5); Protime INR 1.06
[2024-02-14 11:00] LABS: Absolute Basophils 0.1 K/uL (0-0.5); Absolute Eosinophils 0.1 K/uL (0-0.5); Absolute Lymphocytes (CBC) 1.4 K/uL (0.7-4.9); Absolute Monocytes 1.3 K/uL (0.1-1.3); Absolute Neutrophil 9.3 K/uL (1.8-8.0); Basophils % 0.7 % (0-1.3); Eosinophils % 0.5 % (0-4.4); Hematocrit 40.9 % (39.6-49.0); Hemoglobin 13.8 g/dL (13.6-17.9); Lymphocytes % 11.5 % (15.3-44.8); MCH 32.8 pg (27.0-35.0); MCHC 33.8 g/dL (32.0-36.0); MCV 97.2 fL (80-100); MPV 7.1 fL (7.6-11.3); Monocytes % 10.5 % (3.3-12.3); Neutrophils % 76.8 % (41.7-73.7); Platelets 162 thou/uL (152-406); RBC Red Blood Cell Count 4.21 M/uL (4.33-5.43); Red Cell Distribution Width 15.5 % (12.1-15.2)
--- NOTE | 2024-02-14 11:11 | RAD REPORT ---
EXAM DESCRIPTION: RAD - Chest Single View - 02/14/2024 11:01 am CLINICAL HISTORY: COUGH COMPARISON: Chest Single View dated 02/10/2024; Chest Single View dated 02/07/2024; Chest Single View d ated 12/02/2023; Abdomen 1 View (KUB) dated 11/30/2023; Stone Protocol dated 02/14/2024; Chest Abd Pelvis Wo Con dated 12/28/2023 FINDINGS: Lines: None. Lungs: Right middle lobe atelectasis better seen on the same-day CT. Pleural: No significant pleural effusions or pneumothorax. Cardiac: The heart size is within normal limits. Mediastinum: Within normal limits. Bones: No acute fractures. Other: None IMPRESSION: No acute cardiopulmonary disease. Right middle lobe atelectasis is better seen on the sa me-day CT.
--- NOTE | 2024-02-14 11:15 | RAD REPORT ---
EXAM DESCRIPTION: CTStone Protocol - 02/14/2024 11:02 am CLINICAL HISTORY: Abd pain;Flank pain;Hematuria COMPARISON: Abdomen Pelvis W Contrast dated 11/30/2023; Abdomen Pelvis W Contrast dated 11/24/2022 ; Abdomen Pelvis W Contrast dated 04/26/2022; Abdomen Pelvis W Contrast dated 02/16/2022 TECHNIQUE: CT of the abdomen and pelvis was performed. All CT scans are performed using dose optimization technique as appropriate and may include automated exposure control or mA/KV adjustment according to patient size. FINDINGS: Lower chest: Partially imaged right middle lobe atelectasis. Liver: Hepatic steatosis. Biliary: No biliary ductal dilatation. Stomach: No significant focal abnormality. Duodenum: No significant focal abnormality. Pancreas: No significant abnormality. Spleen: No significant abnormality. Adrenal: No suspicious lesions. Kidney/ureter: No hydronephrosis. Nonobstructing 3 mm stone in the left kidney. Retroperitoneum: No retroperitoneal adenopathy. Vascular: No aneurysm. Atherosclerosis. Bowel: Normal appendix. No bowel obstruction.. Peritoneum: No ascites or free air. Small fat containing inguinal hernias. Bladder: Grossly unremarkable. Reproductive: No adnexal masses. Bones: No acute fracture. Grade 1 anterolisthesis of L5 on S1. Other: n/a IMPRESSION: No acute intra-abdominal or pelvic finding.
[2024-02-14 11:18] LABS: Albumin 3.3 g/dL (3.4-5.0); Albumin/Globulin Ratio 0.8 (1.1-1.8); Anion Gap 12.6 mEq/L (5.0-15.0); Bilirubin Direct 0.3 mg/dL (0-0.2); Bilirubin Indirect, Calculated 0.4 mg/dL (0.2-0.8); Bilirubin Total 0.7 mg/dL (0.2-1.0); Magnesium 2.1 mg/dL (1.6-2.4); Potassium 3.6 mEq/L (3.5-5.1); Protein, Total 7.3 g/dL (6.4-8.2); Troponin High Sensitivity 6.4 pg/mL (<58.9)
[2024-02-14] MEDS ORDERED: PIPERACIL/TAZO 3.375 GM VIAL IV ONE (11:39)
[2024-02-14] MEDS ORDERED: HYDROMORPHONE HCL 1 MG/ML INJ ONE (12:12)
[2024-02-14] MEDS ORDERED: ONDANSETRON 4 MG/2 ML VIAL ONE (12:12)
--- NOTE | 2024-02-14 12:16 | ER ---
Nurse's Notes [facility] Name: Randy Briones Age: 53 yrs Sex: Male : 1970 Arrival Date: 02/14/2024 Time: 10:10 Bed 7 Private MD: Adrianna Michaels H Diagnosis: COPD/ Chronic obstructive pulmonary disease with (acute) exacerbation;Tobacco abuse counseling;Tobacco use;Hypoxemia;Hematuria, unspecified;Obesity, unspecified;Elevated white blood cell count Presentation: 02/13 10:22 Chief complaint: SOB x 3 days, blood in urine and urinary incontinence x 1 week. hb Coronavirus screen: At this time, the client does not indicate any symptoms associated with coronavirus-19. Ebola Screen: No symptoms or risks identified at this time. Initial Sepsis Screen: Does the patient meet any 2 criteria? HR > 90 bpm. No. Patient's initial sepsis screen is negative. Does the patient have a suspected source of infection? No. Patient's initial sepsis screen is negative. Risk Assessment: Do you want to hurt yourself or someone else? Patient reports no desire to harm self or others. Onset of symptoms was February 08, 2024. 10:22 Method Of Arrival: Ambulatory hb 10:22 Acuity: CANDACE 2 hb Triage Assessment: 10:24 General: Appears uncomfortable, ill, mild distress. Behavior is cooperative. Pain: Pain hb currently is 10 out of 10 on a pain scale. Neuro: Level of Consciousness is awake, alert, obeys commands, Oriented to person, place, time, situation. Cardiovascular: Rhythm is tachy. Respiratory: Reports shortness of breath Respiratory effort is labored, Respiratory pattern is regular, symmetrical, Onset: The symptoms/episode began/occurred 2-3 days, the patient has moderate shortness of breath. GI: No signs and/or symptoms were reported involving the gastrointestinal system. : Reports urinary frequency, blood in urine. Historical: - Allergies: 10:23 Lisinopril; hb - PMHx: 10:23 Alcoholism; COPD; Hepatitis B (Hypertension); home 02 3LNC PRN; Hypertension; hb Osteoporosis; - PSHx: 10:23 Amputation of left index finger; hb - Immunization history:: Adult Immunizations up to date. - Infectious Disease History:: Denies. - Social history:: Smoking status: Patient reports the use of cigarette tobacco products. Screenin:53 [facility] ED Fall Risk Assessment (Adult) History of falling in the last 3 months, ss including since admission No falls in past 3 months (0 pts). [facility] ED Fall Risk Assessment (Adult) Confusion or Disorientation No (0 pts) Intoxicated or Sedated No (0 pts) Impaired Gait No (0 pts) Mobility Assist Device Used No (0 pt) Altered Elimination No (0 pt) Score/Fall Risk Level 0 - 2 = Low Risk Oriented to surroundings. Abuse screen: Denies threats or abuse. Denies injuries from another. Nutritional screening: No deficits noted. Tuberculosis screening: Never had TB. Assessment: 11:00 General: Appears uncomfortable, Behavior is cooperative, restless. Pain: Complains of ss pain in left leg and right leg and right upper thigh Pain currently is 9 out of 10 on a pain scale. Is chronic. Neuro: Level of Consciousness is awake, alert, obeys commands, Oriented to person, place, time, situation. Cardiovascular: Capillary refill < 3 seconds is brisk in bilateral fingers. Respiratory: Airway is patent Respiratory effort is even, labored. GI: Abdomen is round non-distended. EENT: Nares are clear. Derm: Musculoskeletal: Circulation, motion, and sensation intact. Range of motion: intact in all extremities. 12:30 Reassessment: Dr. Martin at bedside discussing plan to admit to hospital for further ss evaluation and treatment. 12:53 Reassessment: Pt is resting at this time. Eyes closed. RR even and unlabored. 2L NC ss applied. 13:50 Reassessment: Patient appears in no apparent distress at this time. Patient and/or ss family updated on plan of care and expected duration. Pain level reassessed. 14:30 Neuro: Level of Consciousness is awake, alert, obeys commands, Oriented to person, ss place, time, situation. Respiratory: Airway is patent Respiratory effort is even, unlabored, Respiratory pattern is regular, symmetrical. Vital Signs: 10:22 BP 158 / 109; Pulse 130; Resp 14; Temp 99.4(O); Pulse Ox 91% on R/A; Weight 79.38 kg; hb Height 5 ft. 4 in. ; Pain 10/10; 11:22 Pulse 119; Resp 24; Pulse Ox 95% on Nebulizer Mask; ss 11:59 BP 150 / 63; Pulse 132; Resp 23; Pulse Ox 94% on Nebulizer Mask; ss 12:40 BP 133 / 94; Pulse 113; Resp 18; Pulse Ox 92% on 2 lpm NC; ss 10:22 Body Mass Index 30.04 (79.38 kg, 162.56 cm) hb 10:22 Pain Scale: Adult hb ED Course: 10:12 Patient arrived in ED. mr 10:12 Adrianna Michaels DO is Private Physician. mr 10:16 Bg Briones MD is Attending Physician. akash 10:23 Triage completed. hb 10:23 Arm band placed on. hb 10:26 Client placed on continuous cardiac and pulse oximetry monitoring. NIBP monitoring hb applied. library monitor on. Pulse ox on. NIBP on. 10:43 Kiley Goldstein, RN is Primary Nurse. ss 10:45 Inserted saline lock: 20 gauge in left antecubital area, using aseptic technique. Blood ss collected. 10:[address] via wheelchair. hb 11:03 XRAY Chest (1 view) In Process Unspecified. EDMS 11:04 CT Stone Protocol In Process Unspecified. EDMS 11:09 EKG done, by ED staff, reviewed by Bg Briones MD. hb 12:14 Satnam Martin MD is Hospitalizing Provider. akash 12:53 Patient has correct armband on for positive identification. Bed in low position. ss 12:55 No provider procedures requiring assistance completed. ss 12:55 Oxygen administration via nasal cannula \T\ 2L/min. ss 14:40 Patient admitted, IV remains in place. ss Administered Medications: 11:21 Drug: Ipratropium Inhalation Aerosol 0.5 mg Inhalation once Route: Inhalation; ss 11:22 Drug: NS 0.9% IV 1000 ml IV at 125 ml/hr continuous Route: IV; Rate: 125 ml/hr; Site: ss left antecubital; 11:32 Follow up: converted to bolus as ordered by Dr. Briones ss 11:22 Drug: Rocephin IV 1 grams IV at per protocol once; Given slow IV push per pharmacy ss instructions Route: IV; Rate: per protocol; Site: left antecubital; 11:32 Follow up: IV Status: Completed infusion 11:22 Drug: MethylPrednisoLONE IVP 125 mg IVP once Route: IVP; Site: left antecubital; 18:10 Follow up: Response: No adverse reaction; RASS: Alert and Calm (0) ss 11:22 Drug: Levalbuterol Inhalation 3.75 mg Inhalation once Route: Inhalation; ss 11:32 Drug: NS 0.9% IV 1000 ml IV at 1 bolus Per protocol; 1000 mL bolus Route: IV; Rate: 1 ss bolus; Site: left antecubital; 12:30 Follow up: IV Status: Completed infusion; IV Intake: 1000ml ss 12:37 Drug: HYDROmorphone IVP 1 mg IVP once Route: IVP; Site: left antecubital; ss 13:00 Follow up: Response: Marked relief of symptoms; Pain is decreased ss 12:37 Drug: Ondansetron IVP 4 mg IVP once; over 2 minutes Route: IVP; Site: left antecubital; ss 13:00 Follow up: Response: No adverse reaction ss 12:38 Drug: Piperacillin-Tazobactam IVPB 3.375 grams IVPB once over 60 mins; (mix in NS 100 ss mL) Route: IVPB; Infused Over: 60 mins; Site: left antecubital; 13:30 Follow up: IV Status: Completed infusion ss Medication: 12:53 VIS not applicable for this client. ss Intake: 12:30 IV: 1000ml; Total: 1000ml. Outcome: 12:15 Decision to Hospitalize by Provider. [facility] 12:55 Condition: good 12:55 Instructed on the need for admit, 14:48 Patient left the ED. 14:48 Admitted to Tele accompanied by [facility], via wheelchair, room 404, Report called to BRIGETTE Rivera Signatures: Dispatcher [employer] Bg Whitfield MD MD cha Rivera, Mary, Reg Reg Kiley Bennett RN RN Myra Sandoval RN RN hb Corrections: (The following items were deleted from the chart) 10:24 10:22 BP 158 / 109; Pulse 130bpm; Resp 14bpm; Pulse Ox 91% RA; Temp 99.4F Oral; Pain hb 10/10, Adult; hb 18:13 11:25 IV Status: Completed infusion [facility] 18:13 18:12 converted to bolus as ordered by Dr. Briones [facility]
--- NOTE | 2024-02-14 12:16 | EDPHYS ---
Physician Documentation [facility] Name: Randy Briones Age: 53 yrs Sex: Male : 1970 Arrival Date: 02/14/2024 Time: 10:10 Bed 7 Private MD: Adrianna Michaels H ED Physician Bg Briones HPI: 02/13 12:06 This 53 yrs old Male presents to ER via Ambulatory with complaints of akash Breathing Difficulty, Urinary Problem. 12:06 The patient has shortness of breath at rest, with light activity. Onset: The akash symptoms/episode began/occurred 2 day(s) ago. Duration: The symptoms are continuous, and are steadily getting worse. The patient's shortness of breath is aggravated by coughing, supine position, walking, is alleviated by nebulizer treatment, sitting up, application of supplemental oxygen. Associated signs and symptoms: Pertinent positives: non-productive cough, nausea. Severity of symptoms: At their worst the symptoms were moderate in the emergency department the symptoms are unchanged. The patient has not experienced similar symptoms in the past. Historical: - Allergies: 10:23 Lisinopril; hb - PMHx: 10:23 Alcoholism; COPD; Hepatitis B (Hypertension); home 02 3LNC PRN; Hypertension; hb Osteoporosis; - PSHx: 10:23 Amputation of left index finger; hb - Immunization history:: Adult Immunizations up to date. - Infectious Disease History:: Denies. - Social history:: Smoking status: Patient reports the use of cigarette tobacco products. ROS: 12:08 Constitutional: Negative for fever, chills, and weight loss, Eyes: Negative for injury, akash pain, redness, and discharge, ENT: Negative for injury, pain, and discharge, Neck: Negative for injury, pain, and swelling, Abdomen/GI: Negative for abdominal pain, nausea, vomiting, diarrhea, and constipation, Back: Negative for injury and pain, MS/Extremity: Negative for injury and deformity, Skin: Negative for injury, rash, and discoloration, Neuro: Negative for headache, weakness, numbness, tingling, and seizure, Psych: Negative for depression, anxiety, suicide ideation, homicidal ideation, and hallucinations, Allergy/Immunology: Negative for hives, rash, and allergies, Endocrine: Negative for neck swelling, polydipsia, polyuria, polyphagia, and marked weight changes, Hematologic/Lymphatic: Negative for swollen nodes, abnormal bleeding, and unusual bruising, 12:08 Cardiovascular: Positive for palpitations, 12:08 Respiratory: Positive for cough, shortness of breath, wheezing, expiratory, 12:08 MS/extremity: Positive for decreased range of motion, pain, of the right upper thigh and left leg, Exam: 12:08 Constitutional: This is a well developed, well nourished patient who is awake, alert, akash and in no acute distress. Head/Face: Normocephalic, atraumatic. Eyes: Pupils equal round and reactive to light, extra-ocular motions intact. Lids and lashes normal. Conjunctiva and sclera are non-icteric and not injected. Cornea within normal limits. Periorbital areas with no swelling, redness, or edema. ENT: Nares patent. No nasal discharge, no septal abnormalities noted. Tympanic membranes are normal and external auditory canals are clear. Oropharynx with no redness, swelling, or masses, exudates, or evidence of obstruction, uvula midline. Mucous membranes moist. Neck: Trachea midline, no thyromegaly or masses palpated, and no cervical lymphadenopathy. Supple, full range of motion without nuchal rigidity, or vertebral point tenderness. No Meningismus. Chest/axilla: Normal chest wall appearance and motion. Nontender with no deformity. No lesions are appreciated. Cardiovascular: Regular rate and rhythm with a normal S1 and S2. No gallops, murmurs, or rubs. Normal PMI, no JVD. No pulse deficits. Abdomen/GI: Soft, non-tender, with normal bowel sounds. No distension or tympany. No guarding or rebound. No evidence of tenderness throughout. Back: No spinal tenderness. No costovertebral tenderness. Full range of motion. Male : Normal genitalia with no discharge or lesions. Skin: Warm, dry with normal turgor. Normal color with no rashes, no lesions, and no evidence of cellulitis. MS/ Extremity: Pulses equal, no cyanosis. Neurovascular intact. Full, normal range of motion. Neuro: Awake and alert, GCS 15, oriented to person, place, time, and situation. Cranial nerves II-XII grossly intact. Motor strength 5/5 in all extremities. Sensory grossly intact. Cerebellar exam normal. Normal gait. Psych: Awake, alert, with orientation to person, place and time. Behavior, mood, and affect are within normal limits. 12:08 Respiratory: mild respiratory distress is noted, Respirations: labored breathing, that is mild, that is moderate, Breath sounds: bronchial sounds, that are moderate, are scattered, decreased breath sounds, that are mild, are scattered, rhonchi, that are moderate, are scattered, stridor, is not appreciated, + upper airway congestion. wheezing: expiratory is scattered, 12:16 ECG was reviewed by the Attending Physician. [facility] Vital Signs: 10:22 BP 158 / 109; Pulse 130; Resp 14; Temp 99.4(O); Pulse Ox 91% on R/A; Weight 79.38 kg; hb Height 5 ft. 4 in. ; Pain 10/10; 11:22 Pulse 119; Resp 24; Pulse Ox 95% on Nebulizer Mask; ss 11:59 BP 150 / 63; Pulse 132; Resp 23; Pulse Ox 94% on Nebulizer Mask; ss 12:40 BP 133 / 94; Pulse 113; Resp 18; Pulse Ox 92% on 2 lpm NC; ss 10:22 Body Mass Index 30.04 (79.38 kg, 162.56 cm) hb 10:22 Pain Scale: Adult hb MDM: 10:16 Patient medically screened. [facility] 12:08 Differential diagnosis: bursitis, arthritis, strain, Anemia asthma, Bronchitis CHF akash exacerbation, Chronic Obstructive Pulmonary Disease obstructed airway, tracheal injury, bronchitis, flu, URI, nonspecific abdominal pain, UTI, prostatitis, urethritis, pneumonia, Pneumothorax pulmonary edema, Pulmonary Embolism reactive airway disease, Sepsis Unstable Angina. Antibiotic administration: ZOSYN. Differential Diagnosis: Obstructed Airway Bronchitis Influenza Upper Respiratory Infection Sinusitis Pharyngitis Asthma Exacerbation Viral Syndrome Pneumonia. Immunization status: Influenza vaccine: within last 5 years. Data reviewed: vital signs, nurses notes, lab test result(s), EKG, radiologic studies, CT scan, plain films. Consideration of Admission/Observation Patient was admitted/placed on observation. Escalation of care including admission/observation considered. I considered the following discharge prescriptions or medication management in the emergency department Medications were administered in the Emergency Department. See MAR. Test considered but Not performed: Ultrasound NO RENAL USG. Care significantly affected by the following chronic conditions: Hypertension, Chronic Obstructive Pulmonary Disease, Obesity, ALCOHOLISM. Counseling: I had a detailed discussion with the patient and/or guardian regarding the historical points, exam findings, and any diagnostic results supporting the discharge/admit diagnosis, the presence of at least one elevated blood pressure reading (>120/80) during this emergency department visit, lab results, radiology results, the need for further work-up and treatment in the hospital. 02/13 10:22 Order name: Basic Metabolic Panel; Complete Time: 11:22 [facility] 02/13 10:22 Order name: CBC with Diff; Complete Time: 11:22 [facility] 02/13 10:22 Order name: LFT's; Complete Time: 11:22 [facility] 02/13 10:22 Order name: Magnesium; Complete Time: 11:22 [facility] 02/13 10:22 Order name: NT PRO-BNP; Complete Time: 11:22 [facility] 02/13 10:22 Order name: PT-INR; Complete Time: 11:22 [facility] 02/13 10:22 Order name: Troponin HS; Complete Time: 11:22 [facility] 02/13 10:22 Order name: Blood Culture Adult (2) [facility] 02/13 10:22 Order name: Lactate w/ 2H reflex if indic.; Complete Time: 11:22 [facility] 02/13 10:22 Order name: Lipase; Complete Time: 11:22 [facility] 02/13 12:47 Order name: CBC with Automated Diff EDMS 02/13 12:47 Order name: CBC with Automated Diff EDMS 02/13 12:47 Order name: Comprehensive Metabolic Panel EDMS 02/13 12:47 Order name: Comprehensive Metabolic Panel EDMS 02/13 12:47 Order name: Lipid Profile EDMS 02/13 12:47 Order name: Lipid Profile EDMS 02/13 12:47 Order name: Magnesium EDMS 02/13 12:47 Order name: Magnesium EDMS 02/13 12:47 Order name: NT PRO-BNP EDMS 02/13 12:47 Order name: NT PRO-BNP EDMS 02/13 12:47 Order name: Protime (+INR) EDMS 02/13 12:47 Order name: Protime (+INR) EDMS 02/13 12:47 Order name: PTT, Activated Partial Thromb EDMS 02/13 12:47 Order name: PTT, Activated Partial Thromb EDMS 02/13 12:47 Order name: Urinalysis w/ reflexes EDMS 02/13 10:22 Order name: XRAY Chest (1 view); Complete Time: 11:22 [facility] 02/13 10:22 Order name: CT Stone Protocol; Complete Time: 11:22 [facility] 02/13 10:22 Order name: EKG; Complete Time: 10:22 [facility] 02/13 12:47 Order name: CONS Physician Consult ED[facility] 02/13 10:22 Order name: Cardiac monitoring; Complete Time: 10:46 [facility] 02/13 10:22 Order name: EKG - Nurse/Tech; Complete Time: 11:12 [facility] 02/13 10:22 Order name: IV Saline Lock; Complete Time: 10:47 [facility] 02/13 10:22 Order name: Labs collected and sent; Complete Time: 10:47 [facility] 02/13 10:22 Order name: O2 Per Protocol; Complete Time: 10:47 [facility] 02/13 10:22 Order name: O2 Sat Monitoring; Complete Time: 10:47 [facility] 02/13 10:22 Order name: IV - Large Bore; Complete Time: 10:46 [facility] EC:16 Rate is 116 beats/min. Rhythm is regular. QRS Badin is Normal. SD interval is normal. [facility] QRS interval is normal. QT interval is normal. No Q waves. T waves are Normal. No ST changes noted. Clinical impression: Sinus tachycardia and No evidence of ischemia. Interpreted by me. Reviewed by me. Administered Medications: 11:21 Drug: Ipratropium Inhalation Aerosol 0.5 mg Inhalation once Route: Inhalation; 11:22 Drug: NS 0.9% IV 1000 ml IV at 125 ml/hr continuous Route: IV; Rate: 125 ml/hr; Site: left antecubital; 11:32 Follow up: converted to bolus as ordered by Dr. Briones 11:22 Drug: Rocephin IV 1 grams IV at per protocol once; Given slow IV push per pharmacy instructions Route: IV; Rate: per protocol; Site: left antecubital; 11:32 Follow up: IV Status: Completed infusion 11:22 Drug: MethylPrednisoLONE IVP 125 mg IVP once Route: IVP; Site: left antecubital; 18:10 Follow up: Response: No adverse reaction; RASS: Alert and Calm (0) 11:22 Drug: Levalbuterol Inhalation 3.75 mg Inhalation once Route: Inhalation; 11:32 Drug: NS 0.9% IV 1000 ml IV at 1 bolus Per protocol; 1000 mL bolus Route: IV; Rate: 1 ss bolus; Site: left antecubital; 12:30 Follow up: IV Status: Completed infusion; IV Intake: 1000ml ss 12:37 Drug: HYDROmorphone IVP 1 mg IVP once Route: IVP; Site: left antecubital; ss 13:00 Follow up: Response: Marked relief of symptoms; Pain is decreased ss 12:37 Drug: Ondansetron IVP 4 mg IVP once; over 2 minutes Route: IVP; Site: left antecubital; ss 13:00 Follow up: Response: No adverse reaction ss 12:38 Drug: Piperacillin-Tazobactam IVPB 3.375 grams IVPB once over 60 mins; (mix in NS 100 ss mL) Route: IVPB; Infused Over: 60 mins; Site: left antecubital; 13:30 Follow up: IV Status: Completed infusion ss Disposition Summary: 02/14/24 12:15 Hospitalization Ordered Notes: Hospitalization Status: Observation akash Provider: Satnam Martin cha Location: Telemetry/MedSurg (observation) akash Condition: Stable akash Problem: new akash Symptoms: have improved akash Bed/Room Type: Standard akash Room Assignment: 404(02/14/24 13:32) bd Diagnosis - COPD/ Chronic obstructive pulmonary disease with (acute) exacerbation akash - Tobacco abuse counseling akash - Tobacco use akash - Hypoxemia akash - Hematuria, unspecified akash - Obesity, unspecified akash - Elevated white blood cell count akash Forms: - Medication Reconciliation Form akash - SBAR form akash - Leadership Thank You Letter akash Signatures: Dispatcher [employer] Leticia Celestin Corey, MD MD cha Blanchard, Shelby, RN RN Myra Sandoval RN RN Corrections: (The following items were deleted from the chart) 10:23 10:22 BASIC METABOLIC PANEL+C.LAB.BRZ ordered. EDMS EDMS 10:23 10:22 CBC+H.LAB.BRZ ordered. EDMS EDMS 10:23 10:22 HEPATIC FUNCTION+C.LAB.BRZ ordered. EDMS EDMS 10:23 10:22 MAGNESIUM+C.LAB.BRZ ordered. EDMS EDMS 10:23 10:22 PROBNP+C.LAB.BRZ ordered. EDMS EDMS 10:23 10:22 PROTIME (+INR)+COAG.LAB.BRZ ordered. EDMS EDMS 10: 10:22 Troponin High Sensitivity+C.LAB.BRZ ordered. EDMS EDMS 10: 10:22 BLOOD CULTURE*+BA.LAB.BRZ ordered. EDMS EDMS 10: 10:22 LACTATE+C.LAB.BRZ ordered. EDMS EDMS 10: 10:22 LIPASE+C.LAB.BRZ ordered. EDMS EDMS 13:32 12:15 akash bd
--- NOTE | 2024-02-14 12:35 | P.HP ---
Certification for Inpatient Patient admitted to: Inpatient With expected LOS: >2 Midnights Patient will require the following post-hospital care: None Practitioner: I am a practitioner with admitting privileges, knowledge of patient current condition, hospital course, and medical plan of care. Services: Services provided to patient in accordance with Admission requirements found in Title 42 Section 412.3 of the Code of Federal Regulations Patient History Date of Service: 02/14/24 Reason for admission: Shortness of breath/history of alcohol intoxication and abuse/COPD exacerba History of Present Illness: Patient is a 53-year-old gentleman well-known to me from multiple prior admissions who comes into the hospital with shortness of breath. Patient states he was short of breath for the last few days. He had a history of alcohol abuse and intoxication. He has gone into delirium tremens in the hospital as well. Patient also has a history of COPD. Patient states he has been on steroids chronically for 5 years. He has been dealing with bone issues/osteoporosis. Patient's also noticed that there was questionable blood in the toilet. Patient denies having any hematuria. The urine sample that is by bedside with no evidence of gross hematuria. Patient denies any melena or hematochezia. Patient denies any hematemesis. Patient was just more short of breath than his baseline. He came to the emergency room for further evaluation. In the ER patient was satting 88% on room air. He was given a nebulizer treatments and imaging studies were performed. CT of the abdomen did not reveal any intra- abdominal pathology except for 3 mm nonobstructing left nephrolithiasis. The partially imaged chest did show atelectasis of the right middle lobe. Chest x- ray with no abnormal findings except for COPD changes. At this time, patient will be admitted to the hospital for observation. He appears to be doing much better after the nebulizer treatments. Will start him on Librium to prevent delirium tremens as well. He did have a couple of drinks this morning according to his . Hopefully we can get him home in the morning. Allergies lisinopril Allergy (Verified 04/26/22 13:11) Shortness of breath BC powder Allergy (Mild, Uncoded 04/26/22 13:10) Hives Lisinopril Allergy (Mild, Uncoded 04/26/22 13:10) Shortness of breath Home Medications: predniSONE [Prednisone*] 10 mg PO DAILY #30 tab 04/28/22 Budesonide/Formoterol Fumarate [Symbicort 160-4.5 Mcg Inhaler] 2 puff IH DAILY 06/23/23 Spironolactone [Aldactone*] 25 mg PO DAILY 06/23/23 Tiotropium [place] [Spiriva] 2 puff IH DAILY 06/23/23 Amlodipine [Norvasc*] 10 mg PO DAILY #30 tab 12/02/23 Hydrocodone 10/APAP 325 [[place] 10/325*] 1 tab PO Q6H PRN #30 tab 12/02/23 Multivit,Ther Iron,Ca,FA & Min [Centrum Tablet*] 1 tab PO DAILY #30 tab 12/02/23 Sucralfate [Carafate -Tab] 1 gm PO ACHS #120 tab 12/02/23 chlordiazePOXIDE HCl [Chlordiazepoxide HCl] 10 mg PO QID #70 cap 12/02/23 - Past Medical/Surgical History Diabetic: No -: Hypertension -: COPD on chronic steroids/home O2 -: Tobacco abuse -: Alcohol abuse -: GERD -: Obesity -: BUD -: 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 - Family History Mother Medical History: Diabetes, Cancer Notes: colon cancer Father Medical History: Lung disease Notes: COPD - Social History Smoking Status: Current every day smoker Alcohol use: Yes CD- Drugs: No Caffeine use: Yes Review of Systems 10-point ROS is otherwise unremarkable Physical Examination - Vital Signs Temperature: 98 F Blood Pressure: 140/80 Pulse: 120 Respirations: 24 Pulse Ox (%): 92 - Physical Exam General: Alert, In no apparent distress, Oriented x3 HEENT: Atraumatic, PERRLA, Mucous membr. moist/pink, EOMI, Sclerae nonicteric Neck: Supple, 2+ carotid pulse no bruit, No LAD, Without JVD or thyroid abnormality Respiratory: Expiratory wheezes Cardiovascular: Regular rate/rhythm, Normal S1 S2 Gastrointestinal: Normal bowel sounds, Soft and benign, Non-distended, No t enderness Musculoskeletal: No clubbing, No swelling, No tenderness Integumentary: No rashes Neurological: Normal gait, Normal speech, Normal strength at 5/5 x4 extr, Normal tone, Sensation intact, Cranial nerves 3-12 intact, Normal affect Lymphatics: No axilla or inguinal lymphadenopathy - Studies Laboratory Data (last 24 hrs) 02/14/24 02/14/24 02/14/24 10:45 10:45 10:45 WBC 12.10 H Hgb 13.8 Hct 40.9 Plt Count 162 PT 11.6 INR 1.06 Sodium 131 L Potassium 3.6 BUN 8 Creatinine 0.64 L Glucose 79 Magnesium 2.1 Total Bilirubin 0.7 AST 20 ALT 22 Alkaline Phosphatase 72 Lipase 30 Assessment & Plan - Problems (Diagnosis) (1) Dyspnea Onset Date: 07/20/18 Current Visit: No Status: Acute (2) COPD with acute exacerbation Current Visit: Yes Status: Acute (3) Atelectasis of right lung Current Visit: Yes Status: Acute (4) Nephrolithiasis Current Visit: Yes Status: Acute (5) Alcohol abuse Onset Date: 02/11/18 Current Visit: No Status: Acute (6) HTN (hypertension) Onset Date: 02/11/18 Current Visit: No Status: Chronic Qualifiers: Hypertension type: primary hypertension Qualified Code(s): I10 - Essential (primary) hypertension (7) Tobacco abuse Onset Date: 02/11/18 Current Visit: No Status: Chronic (8) BUD (obstructive sleep apnea) Current Visit: Yes Status: Acute - Plan Plan: 1. Patient with acute COPD exacerbation; continue with nebs, steroids, antibiotics. Patient is on home oxygen. Will continue 2 L of oxygen and monitor patient's current clinical symptoms. Patient denies any chest pain. We may do further imaging of the chest if patient remains hypoxic. He does have right middle lobe atelectasis which on chest x-ray looks to be improved. However, will reimage in the morning. 2. History of alcohol abuse; patient continues to drink he had a couple drinks this morning. Put him on Librium for DT prevention. PPI as well. 3. History of salicylate abuse; patient has been using a lot of BC powders. Will go ahead and check his salicylate levels and treat accordingly. 4. History of chronic steroid use; patient been using steroids chronically for 5 years. He has a lot of secondary issues because of the steroid use. Will continue him on low-dose steroids at this time to prevent adrenal insufficiency. 5. BUD; CPAP at night 6. GI and DVT prophylax Discharge Plan: Home Plan to discharge in: 24 Hours - Advance Directives Does patient have a Living Will: No Does patient have a Durable POA for Healthcare: No - Code Status/Comfort Care Code Status Assessed: Yes Code Status: Full Code Critical Care: No Time Spent Managing PTS Care (In Minutes): 40
[2024-02-14] MEDS ORDERED: ONDANSETRON 4 MG/2 ML VIAL IV PRN (12:41)
[2024-02-14] MEDS ORDERED: ACETAMINOPHEN 500 MG TAB PO PRN (12:41)
[2024-02-14] MEDS ORDERED: ALBUTEROL 2.5 MG/3 ML NEB SOL ONE (13:13)
[2024-02-14] MEDS: ALBUTEROL 2.5 MG/3 ML NEB SOL NEB SCH (13:21)
[2024-02-14] MEDS: IPRATROPIUM BROM 0.5MG/2.5ML NEB SCH (13:21)
[2024-02-14] MEDS: METOPROLOL TAR 25 MG TAB PO SCH (17:14)
[2024-02-14] MEDS: NA CHLORIDE 0.9% 1,000 ML IV SCH (17:14)
[2024-02-14] MEDS: METHYLPREDNISOLONE 125 MG INJ IV SCH (17:15)
[2024-02-14] MEDS: HYDROCODONE/APAP 5/325 MG TAB PO PRN (17:15)
[2024-02-14] MEDS: LORazepam 2 MG/ML VIAL IV PRN (17:22)
[2024-02-14] MEDS: CEFTRIAXONE 1,000 MG in NA CHLORIDE 0.9% 50 ML IVPB SCH (20:01)
[2024-02-14] MEDS: NICOTINE 14 MG/PAT TD SCH (20:35)
[2024-02-15 08:23] LABS: Absolute Lymphocytes (CBC) 0.4 K/uL (0.7-4.9); Absolute Monocytes 0.4 K/uL (0.1-1.3); Absolute Neutrophil 4.9 K/uL (1.8-8.0); Basophils % 0.6 % (0-1.3); Eosinophils % 0.1 % (0-4.4); Hematocrit 37.6 % (39.6-49.0); Hemoglobin 12.6 g/dL (13.6-17.9); Lymphocytes % 6.2 % (15.3-44.8); MCHC 33.4 g/dL (32.0-36.0); MCV 98.6 fL (80-100); MPV 7.7 fL (7.6-11.3); Monocytes % 6.6 % (3.3-12.3); Neutrophils % 86.5 % (41.7-73.7); Platelets 148 thou/uL (152-406); RBC Red Blood Cell Count 3.81 M/uL (4.33-5.43); Red Cell Distribution Width 15.2 % (12.1-15.2)
[2024-02-15] MEDS: AZITHROMYCIN IV 500 MG in NA CHLORIDE 0.9% 250 ML IVPB SCH (08:24)
[2024-02-15 08:26] LABS: PT Prothrombin Time 11.4 SECONDS (9.5-12.5); PTT, Activated Partial Thromb 29.6 SECONDS (24.3-36.9); Protime INR 1.04
[2024-02-15] MEDS: ENOXAPARIN 40 MG/0.4 ML SQ SCH (08:26)
[2024-02-15 08:39] LABS: Albumin 2.9 g/dL (3.4-5.0); Albumin/Globulin Ratio 0.8 (1.1-1.8); Bilirubin Total 0.5 mg/dL (0.2-1.0); Globulin 3.8 g/dL (2.3-3.5); Magnesium 2.6 mg/dL (1.6-2.4); Protein, Total 6.7 g/dL (6.4-8.2)
[2024-02-15 08:59] LABS: Blood Morphology Comment NOT SEEN (NOT SEEN); Platelet Estimate ADEQ; White Blood Cell Scan OK (OK)
[2024-02-15] MEDS ORDERED: NICOTINE 14 MG/PAT TD SCH (09:00)
--- NOTE | 2024-02-15 09:01 | P.DS ---
Admission Date: 02/14/24 Discharge Date: 02/15/24 Primary Care Provider: Dr. Michaels Disposition: ROUTINE DISCHARGE Discharge Condition: GOOD Reason for Admission: Shortness of breath/history of alcohol intoxication and abuse/COPD exacerba Brief History of Present Illness: Patient is a 53-year-old gentleman well-known to me from multiple prior admissions who comes into the hospital with shortness of breath. Patient states he was short of breath for the last few days. He had a history of alcohol abuse and intoxication. He has gone into delirium tremens in the hospital as well. Patient also has a history of COPD. Patient states he has been on steroids chronically for 5 years. He has been dealing with bone issues/osteoporosis. Patient's also noticed that there was questionable blood in the toilet. Patient denies having any hematuria. The urine sample that is by bedside with no evidence of gross hematuria. Patient denies any melena or hematochezia. Patient denies any hematemesis. Patient was just more short of breath than his baseline. He came to the emergency room for further evaluation. In the ER patient was satting 88% on room air. He was given a nebulizer treatments and imaging studies were performed. CT of the abdomen did not reveal any intra- abdominal pathology except for 3 mm nonobstructing left nephrolithiasis. The partially imaged chest did show atelectasis of the right middle lobe. Chest x- ray with no abnormal findings except for COPD changes. At this time, patient will be admitted to the hospital for observation. He appears to be doing much better after the nebulizer treatments. Will start him on Librium to prevent delirium tremens as well. He did have a couple of drinks this morning according to his . Hopefully we can get him home in the morning. Hospital Course: Mr. Briones states he is feeling much better this morning. He is aware he needs to stop taking BC powder. We will discharge him on low-dose steroids pe nding follow-up with pulmonology. Repeat chest x-ray pending prior to discharge. Vital Signs/Physical Exam: Temp Pulse Resp BP Pulse Ox 97.2 F 74 18 144/82 H 98 02/15/24 04:00 02/15/24 05:47 02/15/24 06:46 02/15/24 05:47 02/15/24 06:46 General: Alert, In no apparent distress, Oriented x3 HEENT: Atraumatic, Normocephalic Neck: Supple Respiratory: Normal air movement Cardiovascular: Normal pulses, Regular rate/rhythm Capillary refill: <2 Seconds Gastrointestinal: Tenderness (mild, generalized) Musculoskeletal: No clubbing, No swelling Integumentary: Erythema, Other (generalized hyperemia, no petechiae noted) Neurological: Normal speech, Normal tone Lymphatics: No axilla or inguinal lymphadenopathy External genitalia: Deferred Rectal: Deferred Laboratory Data at Discharge: WBC 5.70 thou/uL (4.3-10.9) 02/15/24 07:40 Hgb 12.6 g/dL (13.6-17.9) L D 02/15/24 07:40 Hct 37.6 % (39.6-49.0) L 02/15/24 07:40 Plt Count 148 thou/uL (152-406) L 02/15/24 07:40 PT 11.4 SECONDS (9.5-12.5) 02/15/24 07:40 INR 1.04 02/15/24 07:40 APTT 29.6 SECONDS (24.3-36.9) 02/15/24 07:40 Sodium 136 mEq/L (136-145) D 02/15/24 07:40 Potassium 4.0 mEq/L (3.5-5.1) 02/15/24 07:40 BUN 15 mg/dL (7-18) 02/15/24 07:40 Creatinine 0.52 mg/dL (0.70-1.30) L 02/15/24 07:40 Glucose 157 mg/dL (74-106) H 02/15/24 07:40 Magnesium 2.6 mg/dL (1.6-2.4) H 02/15/24 07:40 Total Bilirubin 0.5 mg/dL (0.2-1.0) 02/15/24 07:40 AST 13 U/L (15-37) L 02/15/24 07:40 ALT 17 U/L (16-61) 02/15/24 07:40 Alkaline Phosphatase 60 U/L (45-117) 02/15/24 07:40 Triglycerides 43 mg/dL (<150) 02/15/24 07:40 Cholesterol 192 mg/dL (<200) 02/15/24 07:40 HDL Cholesterol 130 mg/dL (40-60) H 02/15/24 07:40 Cholesterol/HDL Ratio 1.48 02/15/24 07:40 Lipase 30 U/L (13-75) 02/14/24 10:45 Home Medications: predniSONE [Prednisone*] 10 mg PO DAILY #30 tab 04/28/22 Budesonide/Formoterol Fumarate [Symbicort 160-4.5 Mcg Inhaler] 2 puff IH DAILY 06/23/23 Spironolactone [Aldactone*] 25 mg PO DAILY 06/23/23 Tiotropium [place] [Spiriva] 2 puff IH DAILY 06/23/23 Amlodipine [Norvasc*] 10 mg PO DAILY #30 tab 12/02/23 Hydrocodone 10/APAP 325 [[place] 10/325*] 1 tab PO Q6H PRN #30 tab 12/02/23 Multivit,Ther Iron,Ca,FA & Min [Centrum Tablet*] 1 tab PO DAILY #30 tab 12/02/23 Sucralfate [Carafate*] 1 gm PO ACHS #120 tab 12/02/23 Diet: AHA Activity: Ad lenin Followup: Xenia AUSTIN,Adrianna Gamez DO [Primary Care Provider] -
--- NOTE | 2024-02-15 11:02 | RAD REPORT ---
EXAM DESCRIPTION: RAD - Chest Pa And Lat (2 Views) - 02/15/2024 9:47 am CLINICAL HISTORY: Shortness of breath. Re-eval COMPARISON: Chest Single View dated 02/14/2024; Chest Single View dated 02/10/2024; Chest Single View da sanjay 02/07/2024; Chest Single View dated 12/02/2023; Stone Protocol dated 02/14/2024 TECHNIQUE: PA and lateral views of the chest were obtained. FINDINGS: Progressive medial right basilar airspace opacity, partially obscuring the right heart bor mati, suggesting at least partial right middle lobe collapse. Heart size is normal and central vascula ture is within normal limits. No pleural effusion or pneumothorax seen. No acute bony finding noted. IMPRESSION: At least partial right middle lobe collapse. Possibility of superimposed pneumonia or an underlying endobronchial lesion cannot be entirely excluded. Please consider additional evaluation b y dedicated chest CT if clinically indicated.
[2024-02-15 11:03] VITALS: BP 164/82; TEMP 97
--- NOTE | 2024-02-15 12:28 | RAD REPORT ---
EXAM DESCRIPTION: CT - Thorax Wo Con - 02/15/2024 9:51 am CLINICAL HISTORY: atelectasis/COPD COMPARISON: Chest Abd Pelvis Wo Con dated 12/28/2023; Chest Abd Pelvis Wo Con dated 07/13/2023; Chest F or Pe Angio dated 04/04/2023; Thorax Wo Con dated 11/24/2022; Chest Pa And Lat (2 Views) dated 02/15/2024 ; Stone Protocol dated 02/14/2024 TECHNIQUE: Axial thin cut images of the chest were obtained without IV contrast. Multiplanar reforma ts were generated and reviewed. All CT scans are performed using dose optimization technique as appropriate and may include automated exposure control or mA/KV adjustment according to patient size. FINDINGS: Partial atelectasis/ airspace opacification of the right middle lobe with limited air bron chogram. Aerated segments medially. Appearance is not significantly changed since the 02/14/[address] although the right middle lobe was partially visualized. No endobronchial mass within limits of noncontrast evaluation. Scattered ground-glass opacities/nodules throughout the right lung, largest measuring 2.1 cm in the p osterior right lower lobe. No pleural thickening or pleural effusion. No pneumothorax. No abnormal mediastinal or hilar masses or lymphadenopathy seen. No significant aortic or pulmonary a rtery findings. Assessment is limited in the absence of IV contrast. No chest wall mass or abnormal axillary lymphadenopathy. Evaluation of the solid abdominal structures reveals no suspicious findings. IMPRESSION: Right middle lobe partial opacification, favoring atelectasis. Scattered ground-glass opacity/ nodules throughout the right lung, largest measuring 2.1 cm in the po sterior right lower lobe, may represent multifocal pneumonitis.
--- NOTE | 2024-02-15 12:43 | EKG ---
Test Date: 2024-02-14 Test Time: 11:09:52 Stand Up Comedian: HB MEASUREMENT RESULTS: Intervals: Rate: 116 GA: 130 QRSD: 106 QT: 338 QTc: 469 [place]: P: 64 GA: 130 QRS: 97 T: 78 INTERPRETIVE STATEMENTS: Sinus tachycardia Otherwise normal ECG Compared to ECG 02/10/2024 01:08:48 Sinus rhythm no longer present Incomplete right bundle-branch block no longer present Electronically Signed On 02-15-24 12:40:57 CDT by Rosalino Albert
[2024-02-15 13:42] VITALS: O2SAT 99
== END 2024-02-15 10:52 | disposition left against medical advice (07) ==
LOC: ER 10:10 → ERHOLD 12:41 → 4TH 13:34
PROVIDERS: ADMIT Hospitalist; ATTEND Hospitalist
DX: J44.1 Chronic obstructive pulmonary disease with (acute) exacerbation (principal); J98.11 Atelectasis; N20.0 Calculus of kidney; I10 Essential (primary) hypertension; G47.33 Obstructive sleep apnea (adult) (pediatric); F10.10 Alcohol abuse, uncomplicated; Z72.0 Tobacco use; Z71.6 Tobacco abuse counseling; E66.9 Obesity, unspecified; Z68.30 Body mass index [BMI] 30.0-30.9, adult; D72.829 Elevated white blood cell count, unspecified
CPT/HCPCS: 96365; 96361; 93005; 87040 ×2; 85025 ×2; 80048; 36415; 83735 ×2; 85610 ×2; 80061; 80076; 83605; 85730; 84484; 83690; 80053; 83880 ×2; 71250; 76377; 74176; 71045; 71046; 94640 ×4; 94760 ×3; 96375; 99285; 80179; 94660; J7614; J2543; J7613 ×4; J7644 ×5; J1650; J1170; J2930 ×4; J2405; J7050; J7030 ×3; J0696 ×3; G0378 ×3

== ENCOUNTER 2024-02-15 16:52 | Emergency (ER) | payer OTHER ==
--- OUTSIDE RECORDS SUMMARY | 2024-02-15 16:56 | XMS REPORT | Continuity of Care Document ---
Author Name Unknown Address [address] [facility] [address] [place] [address] [facility] Address [address] [facility] [place] [address] Care Team Providers Care Educational Guidance Counselor Name Role Phone Adrianna Michaels Primary Care Physician [phone] URSULA QUINTANILLA Attending Clinician Unavailable KEISHA DAVENPORT Attending Clinician Unav ailKeisha Simpson MD Attending Clinician + Christina Victoria Attending Clinician [phone] JAC NAVARRO Attending Clinician Unavailable Jac Navarro MD Attending Clinician [phone] TYLER ROWE Attending Clinician Unavailab MELINDA Boothe Attending Clinician Unavailable Melinda Maciel DO Attending Clinician [phone] CHRISTY HOLLIDAY Attending Clinician Unavailable Christy Holliday MD Attending Clinician DARIEN LOBO Attending Clinician Unavailable MARIA ELENA CHAN Attending George akins Unavailable DENISE SUNG Attending Clinician Unavailable KARLEY ADAMS Attending Clinician Unavailable JAC NAVARRO Admitting Clinician Unavailable MELINDA MACIEL Admitting Clinician Unavailable CHRISTY HOLLIDAY Admitting Clinician Unavailable Payers Payer Name Policy Type Policy Number Effective Date Expirati on Date Source [facility] [id number] 2023 00:00:00 2024 00:00:00 [employer] [id number] 2023 00:00:00 [employer] 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: BRANDON O [employer] AGENT 94 ON 9 [id number] 2023 00:00:00 Problems Condition Name Condition Details Condition Category Status Onset Date Resolution Date Last Treatment Date Treating Clinician Comments Source Acute exacerbati on of chronic obstructiv e pulmonary disease (COPD) Acute exacerbati on of chronic obstructiv e pulmonary disease (COPD) Disease Active 03-24 00:00: 00 [facility] Obesity (BMI 30-39.9) Obesity (BMI 30-39.9) Disease Active 03-24 00:00: 00 [facility] Allergies, Adverse Reactions, Alerts Allergy Name Allergy Type Status Severity Reaction(s) Onset Date Inactive Date Treating Clinician Comments Source Lisinopr il Propensi ty to adverse reaction s Active Anaphylaxis 03-24 00:00: 00 [facility] LISINOPR [place] DRUG INGREDI Active Anaphylaxis 03-24 00:00: 00 [facility] Social History Social Habit Start Date Stop Date Quantity Comments Source History of tobacco use Smokes tobacco daily [facility] of Social function 2024-02-08 00:00:00 2024-02-08 00:00:00 [facility] Alcohol intake 2024-02-08 00:00:00 2024-02-08 00:00:00 4.29 /d [facility] Exposure to SARS-CoV-2 (event) 2022-10-04 00:00:00 2022-10-14 10:25:00 Not sure [facility] Tobacco use and exposure 2018-03-24 00:00:00 2018-03-24 00:00:00 User of smokeless tobacco [facility] Tobacco Comment 2018-03-24 00:00:00 2018-03-24 00:00:00 trying to quit [facility] Sex Assigned At 1970 00:00:00 1970 00:00:00 [facility] Smoking Status Start Date Stop Date Source Smokes tobacco daily 2018-03-24 00:00:00 [facility] Medications Ordered Medication Name Filled Medication Name Start Date Stop Date Current Medication? Ordering Clinician Indication Dosage Frequency Signature (SIG) Comments Components Source ketorolac (TORADOL) injection 15 mg 02-08 03:00: 00 02-08 02:21 :00 No 15mg 15 mg, Slow IV Push, ONCE, 1 dose, On Thu02/08/24 at 2200, Routine [facility] iopamidol (ISOVUE 370-500 mL) injection 100 mL 02-07 22:30: 00 02-07 22:30 :00 Yes [id number] 100mL 100 mL, Intravenou s, ONCE, 1 dose, On Thu02/08/24 at 1730, Routine [facility] ipratropium -albuteroL (DUONEB) 0.5 mg-3 mg(2.5 mg base)/3 mL nebulizer solution 3 mL 02-07 21:15: 00 02-07 20:45 :00 No 3mL 3 mL, Inhalation , ONCE, 1 dose, On Thu02/08/24 at 1615, Routine [facility] morpHINE (2 mg/mL) injection 4 mg 02-07 21:15: 00 02-07 20:27 :00 No 4mg 4 mg, Slow IV Push, ONCE, 1 dose, On Thu02/08/24 at 1615, STAT [facility] ondansetron (ZOFRAN (PF)) injection 4 mg 02-07 21:15: 00 02-07 20:22 :00 No 4mg 4 mg, Slow IV Push, ONCE, 1 dose, On Thu02/08/24 at 1615, [facility] magnesium sulfate in water 2 gram/50 mL (4 %) infusion 2 g 02-07 21:00: 00 02-07 21:30 :00 No 2g 2 g, IV Piggyback, Administer over 60 Minutes, ONCE, 1 dose, On Thu02/08/24 at 1600, Routine [facility] ipratropium -albuteroL (DUONEB) 0.5 mg-3 mg(2.5 mg base)/3 mL nebulizer solution 3 mL 02-07 20:30: 00 02-07 19:31 :00 No 3mL 3 mL, Inhalation , ONCE, 1 dose, On Thu02/08/24 at 1530, Routine [facility] HYDROcodone -acetaminop hen (NORCO) 10-325 mg tablet 1 tablet 01-13 13:15: 00 01-13 12:15 :00 No 1{tbl} 1 tablet, Oral, ONCE, 1 dose, On Thu01/14/24 at 0715, [facility] ipratropium -albuteroL (DUONEB) 0.5 mg-3 mg(2.5 mg base)/3 mL nebulizer solution 3 mL 01-13 13:00: 00 01-13 11:53 :00 No 3mL 3 mL, Inhalation , ONCE NOW, 1 dose, On Thu01/14/24 at 0700, [facility] ondansetron (ZOFRAN (PF)) injection 4 mg 01-13 11:30: 00 01-13 11:37 :00 No 4mg 4 mg, Slow IV Push, ONCE, 1 dose, On Thu01/14/24 at 0530, [facility] morpHINE (4 mg/mL) injection 4 mg 01-13 11:30: 00 01-13 11:37 :00 No 4mg 4 mg, Slow IV Push, ONCE, 1 dose, On Thu01/14/24 at 0530, STAT [facility] azithromyci n (ZITHROMAX Z-PORTER) 250 mg tablet 01-13 00:00: 00 Yes [id number] Take 500 mg on day 1 then 250 mg on days 2-5 [facility] predniSONE 20 mg tablet 01-13 00:00: 00 Yes [id number] Take 1 po tid x 2 days, then take 1 po bid x 3 days, then take 1 po daily x 3 days. [facility] acetaminoph en-codeine 300-30 mg tablet 01-13 00:00: 00 01-21 04:59 :00 Yes [id number] 1{tbl} Take 1 tablet by mouth every 6 (six) hours as needed for Pain (scale 7-10) (severe cough) for up to 7 days. Indication s: acute pain, severe cough [facility] KCL (KLOR-CON M20) tablet 40 mEq 12-23 [...] dose, On Thu12/22/23 at 2215, Routine [facility] famotidine (PEPCID (PF)) injection 20 mg 12-23 04:15: 00 12-23 04:15 :00 No 20mg 20 mg, Slow IV Push, ONCE, 1 dose, On Thu12/22/23 at 2215, LAURYN [facility] HYDROcodone -acetaminop hen (NORCO) 10-325 mg tablet 1 tablet 12-22 04:30: 00 12-22 16:29 :00 Yes 1{tbl} 1 tablet, Oral, ONCE, 1 dose, On Thu12/21/23 at 2230, Routine [facility] pantoprazol e (PROTONIX) 80 mg in NaCl 0.9% (NS) 20 mL syringe 12-22 04:15: 00 12-22 16:14 :00 Yes 80mg 80 mg, IV Push, ONCE, 1 dose, On Thu12/21/23 at 2215, Administer over 2 Minutes, 20 mL [facility] iopamidol (ISOVUE 370-500 mL) injection 100 mL 12-22 03:30: 00 12-22 03:30 :00 No [id number] 100mL 100 mL, Intravenou s, ONCE, 1 dose, On Thu12/21/23 at 2130, Routine [facility] morpHINE (4 mg/mL) injection 4 mg 12-22 03:30: 00 12-22 02:16 :00 No 4mg 4 mg, Slow IV Push, ONCE, 1 dose, On Thu12/21/23 at 2130, Routine [facility] ondansetron (ZOFRAN (PF)) injection 4 mg 12-22 02:45: 00 12-22 02:02 :00 No 4mg 4 mg, Slow IV Push, ONCE, 1 dose, On Thu12/21/23 at 2045, Routine [facility] ondansetron 4 mg disintegrat ing tablet 12-22 00:00: 00 Yes [id number] 4mg Take 1 tablet by mouth every 8 (eight) hours as needed for Nausea and Vomiting (N/V). [facility] hydrocortis one 25 mg suppository 12-22 00:00: 00 Yes [id number] 25mg Insert 1 Suppositor y into rectum 2 (two) times daily as needed for Rectal itching/pa in. [facility] amoxicillin -clavulanat e 875-125 mg per tablet 12-22 00:00: 00 01-02 05:59 :00 Yes [id number] 1{tbl} Take 1 tablet by mouth every 12 (twelve) hours for 10 days. [facility] methylpredn isolone sod succ (SOLU-MEDRO L) injection 125 mg 2022-11 08:45: 00 10-27 20:44 :00 No 125mg 125 mg, Slow IV Push, ONCE, 1 dose, On Thu10/27/23 at 0245, STAT [facility] ipratropium -albuteroL (DUONEB) 0.5 mg-3 mg(2.5 mg base)/3 mL nebulizer solution 3 mL 2022-11 08:45: 00 10-27 20:44 :00 No 3mL 3 mL, Inhalation , ONCE NOW, 1 dose, On Thu10/27/23 at 0245, LAURYN [facility] diazePAM (VALIUM) tablet 10 mg 2022-11 07:45: 00 10-27 19:44 :00 No 10mg 10 mg, Oral, ONCE, 1 dose, On Thu10/27/23 at 0145, LAURYN [facility] levoFLOXaci n (LEVAQUIN) tablet 500 mg 2022-11 07:45: 00 10-27 19:44 :00 No 500mg 500 mg, Oral, ONCE, 1 dose, On Thu10/27/23 at 0145, LAURYN
Re ason for Anti-Infec tive: Empiric Non-Surgic al Prophylaxi s
Durat ion of therapy: Once (ED) [facility] iopamidol (ISOVUE 370-500 mL) injection 70 mL 2021-11 18:30: 00 10-14 18:30 :00 No [id number] 70mL 70 mL, Intravenou s, ONCE, 1 dose, On Thu10/14/22 at 1230, Routine [facility] methylpredn isolone sod succ (SOLU-MEDRO L) injection 125 mg 2021-11 18:00: 00 Yes 125mg 125 mg, Intravenou s, Q6H, First dose on Thu10/14/22 at 1200, Until Discontinu ed, Routine [facility] furosemide (LASIX) injection 40 mg 2021-11 17:45: 00 10-14 16:39 :00 No 40mg 40 mg, IV Push, ONCE, 1 dose, On Thu10/14/22 at 1145, LAURYN [facility] ipratropium -albuteroL (DUONEB) 0.5 mg-3 mg(2.5 mg base)/3 mL nebulizer solution 3 mL 2021-11 17:30: 00 10-14 16:41 :00 No 3mL 3 mL, Inhalation , ONCE, 1 dose, On Thu10/14/22 at 1130, Routine [facility] FENTanyl PF (SUBLIMAZE (PF)) injection 50 mcg 2021-11 16:45: 00 10-14 16:39 :00 No 50ug 50 mcg, Slow IV Push, ONCE, 1 dose, On Thu10/14/22 at 1045, Routine [facility] levoFLOXaci n 750 mg tablet 2021-11 00:00: 00 Yes [id number] 750mg Take 1 tablet by mouth every 24 (twenty-fo ur) hours. [facility] HYDROcodone -acetaminop hen (NORCO) 10-325 mg tablet 1 tablet 03-12 12:15: 00 03-12 11:21 :00 No 1{tbl} 1 tablet, Oral, ONCE, 1 dose, On Thu03/12/22 at 0715, Routine [facility] HYDROcodone -acetaminop hen 10-325 mg tablet 5-04 00:00: 00 03-20 04:59 :00 No [id number] 1{tbl} Take 1 tablet by mouth every 6 (six) hours as needed for Pain (scale 7-10) for up to 7 days. Indication s: acute pain [facility] ipratropium -albuteroL (DUONEB) 0.5 mg-3 mg(2.5 mg base)/3 mL nebulizer solution 3 mL 02-20 13:00: 00 Yes 3mL 3 mL, Inhalation , QID, First dose on Kym 02/20/22 at 0800, Until Discontinu ed, Routine [facility] methylPREDN ISolone sod succ (SOLU-MEDRO L (PF)) injection 40 mg 02-20 11:45: 00 02-20 10:43 :00 No 40mg 40 mg, Intravenou s, ONCE, 1 dose, On Kym 02/20/22 at 0645, STAT [facility] foLIC acid (FOLATE) tablet 1 mg 02-20 11:45: 00 02-20 10:41 :00 No 1mg 1 mg, Oral, ONCE, 1 dose, On Kym 02/20/22 at 0645, LAURYN [facility] thiamine (VITAMIN B1) injection 100 mg 02-20 11:45: 00 02-20 10:43 :00 No 100mg 100 mg, Intravenou s, ONCE, 1 dose, On Kym 02/20/22 at 0645, LAURYN [facility] LORazepam (ATIVAN) injection 2 mg 02-20 11:45: 00 02-20 10:42 :00 No 2mg 2 mg, Slow IV Push, ONCE, 1 dose, On Kym 02/20/22 at 0645, STAT [facility] ipratropium -albuteroL (DUONEB) 0.5 mg-3 mg(2.5 mg base)/3 mL nebulizer solution 3 mL 02-20 10:30: 00 02-20 09:34 :00 No 3mL 3 mL, Inhalation , ONCE, 1 dose, On [facility] 02/20/22 at 0530, Routine [facility] albuterol 90 mcg/actuati on inhaler 02-20 00:00: 00 Yes [id number] 2{puff} Inhale 2 Puffs every 4 (four) hours as needed for Wheezing or Shortness of Breath. [facility] albuterol 2.5 mg /3 mL (0.083 %) nebulizer solution 02-20 00:00: 00 Yes [id number] 2.5mg Inhale 3 mL every 4 (four) hours. May also nebulize one extra every 6 hours. [facility] budesonide- formoteroL 160-4.5 mcg/actuati on inhaler 02-20 00:00: 00 Yes [id number] 2{puff} Inhale 2 Puffs 2 (two) times daily. [facility] triamterene -hydrochlor othiazid 37.5-25 mg tablet 02-20 00:00: 00 Yes [id number] 1{tbl} Take 1 tablet by mouth daily. [facility] chlordiazeP OXIDE 25 mg capsule 02-20 00:00: 00 Yes [id number] 25mg Take 1 capsule by mouth every 6 (six) hours as needed for Anxiety, Agitation, Heart Rate => 100 or Detox. [facility] predniSONE 10 mg tablet 02-20 00:00: 00 Yes [id number] TAKE ONE TABLET BY MOUTH DAILY [facility] albuterol 5 mg/mL nebulizer solution 07-16 14:02: 20 Yes 2.5mg Inhale 2.5 mg every 6 (six) hours as needed for Wheezing or Shortness of Breath. [facility] budesonide- formoterol 160-4.5 mcg/actuati on inhaler 07-16 00:00: 00 Yes 2{puff} Inhale 2 Puffs 2 (two) times daily. [facility] albuterol 2.5 mg /3 mL (0.083 %) nebulizer solution 07-16 00:00: 00 Yes 2.5mg Inhale 3 mL every 4 (four) hours as needed for Wheezing or Shortness of Breath. [facility] triamterene -hydrochlor othiazide 37.5-25 mg per capsule 03-26 16:32: 14 Yes 1{capsu le} Take 1 capsule by mouth every morning. [facility] amLODIPine 10 mg tablet 03-26 16:32: 14 Yes 10mg Take 10 mg by mouth at bedtime. [facility] gabapentin 100 mg capsule 03-26 16:32: 14 Yes 100mg Take 100 mg by mouth 2 (two) times daily as needed ([facility] pain). [facility] foLIC acid 1 mg tablet 03-26 16:32: 14 Yes 1mg Take 1 mg by mouth daily. [facility] budesonide- formoterol 160-4.5 mcg/actuati on inhaler 03-26 00:00: 00 Yes 2{puff} Inhale 2 Puffs 2 (two) times daily. [facility] Immunizations Ordered Immunization Name Filled Immunization Name Date Status Comments Source SARS-COV-2 COVID-19 PFIZER VACCINE 2021-02-03 00:00:00 Completed [facility] SARS-COV-2 COVID-19 PFIZER VACCINE 2021-02-03 00:00:00 Completed [facility] SARS-COV-2 COVID-19 PFIZER VACCINE 2021-02-03 00:00:00 Completed [facility] SARS-COV-2 COVID-19 PFIZER VACCINE 2021-01-13 00:00:00 Completed [facility] SARS-COV-2 COVID-19 PFIZER VACCINE 2021-01-13 00:00:00 Completed [facility] SARS-COV-2 COVID-19 PFIZER VACCINE 2021-01-13 00:00:00 Completed [facility] Pneumococcal Polysaccharide, PPSV23 (PNEUMOVAX) 2018-03-26 00:00:00 Completed [facility] Influenza Virus Vaccine Quad IM 3+ YRS 2018-03-26 00:00:00 Completed [facility] Pneumococcal Polysaccharide, PPSV23 (PNEUMOVAX) 2018-03-26 00:00:00 Completed [facility] Influenza Virus Vaccine Quad IM 3+ YRS 2018-03-26 00:00:00 Completed [facility] Pneumococcal Polysaccharide, PPSV23 (PNEUMOVAX) 2018-03-26 00:00:00 Completed [facility] Influenza Virus Vaccine Quad IM 3+ YRS 2018-03-26 00:00:00 Completed [facility] Pneumococcal Polysaccharide, PPSV23 (PNEUMOVAX) Unknown Completed [facility] Influenza Virus Vaccine Quad IM 3+ YRS Unknown Completed [facility] SARS-COV-2 COVID-19 PFIZER VACCINE Unknown Completed [facility] SARS-COV-2 COVID-19 PFIZER VACCINE Unknown Completed [facility] Pneumococcal Polysaccharide, PPSV23 (PNEUMOVAX) Unknown Completed [facility] Influenza Virus Vaccine Quad IM 3+ YRS Unknown Completed [facility] SARS-COV-2 COVID-19 PFIZER VACCINE Unknown Completed [facility] SARS-COV-2 COVID-19 PFIZER VACCINE Unknown Completed [facility] Pneumococcal Polysaccharide, PPSV23 (PNEUMOVAX) Unknown Completed [facility] Influenza Virus Vaccine Quad IM 3+ YRS Unknown Completed [facility] SARS-COV-2 COVID-19 PFIZER VACCINE Unknown Completed [facility] SARS-COV-2 COVID-19 PFIZER VACCINE Unknown Completed [facility] Pneumococcal Polysaccharide, PPSV23 (PNEUMOVAX) Unknown Completed [facility] Influenza Virus Vaccine Quad IM 3+ YRS Unknown Completed [facility] SARS-COV-2 COVID-19 PFIZER VACCINE Unknown Completed [facility] SARS-COV-2 COVID-19 PFIZER VACCINE Unknown Completed [facility] Pneumococcal Polysaccharide, PPSV23 (PNEUMOVAX) Unknown Completed [facility] Influenza Virus Vaccine Quad IM 3+ YRS Unknown Completed [facility] SARS-COV-2 COVID-19 PFIZER VACCINE Unknown Completed [facility] SARS-COV-2 COVID-19 PFIZER VACCINE Unknown Completed [facility] Pneumococcal Polysaccharide, PPSV23 (PNEUMOVAX) Unknown Completed [facility] Influenza Virus Vaccine Quad IM 3+ YRS Unknown Completed [facility] SARS-COV-2 COVID-19 PFIZER VACCINE Unknown Completed [facility] SARS-COV-2 COVID-19 PFIZER VACCINE Unknown Completed [facility] Pneumococcal Polysaccharide, PPSV23 (PNEUMOVAX) Unknown Completed [facility] Influenza Virus Vaccine Quad IM 3+ YRS Unknown Completed [facility] SARS-COV-2 COVID-19 PFIZER VACCINE Unknown Completed [facility] SARS-COV-2 COVID-19 PFIZER VACCINE Unknown Completed [facility] Vital Signs Vital Name Observation Time Observation Value Comments S ource Systolic blood pressure 2024-02-09 01:54:05 150 mm[Hg] [facility] Diastolic blood pressure 2024-02-09 01:54:05 91 mm[Hg] [facility] Heart rate 2024-02-09 01:54:05 87 /min [facility] Respiratory rate 2024-02-09 01:54:05 17 /min [facility] Oxygen saturation in Arterial blood by Pulse oximetry 2024-02-09 01:54:05 93 /min [facility] Body temperature 2024-02-09 01:45:00 36.67 Debbie [facility] Body height 2024-02-09 01:45:00 162.6 cm [facility] Body weight 2024-02-09 01:45:00 81.194 kg [facility] BMI 2024-02-09 01:45:00 30.73 kg/m2 [facility] Respiratory rate 2024-02-08 21:00:00 18 /min [facility] Oxygen saturation in Arterial blood by Pulse oximetry 2024-02-08 21:00:00 96 /min [facility] Systolic blood pressure 2024-02-08 20:27:00 164 mm[Hg] [facility] Diastolic blood pressure 2024-02-08 20:27:00 90 mm[Hg] [facility] Heart rate 2024-02-08 20:27:00 83 /min [facility] Body temperature 2024-02-08 19:12:00 36.83 Debbie [facility] Body height 2024-02-08 19:12:00 162.6 cm [facility] Body weight 2024-02-08 19:12:00 81.194 kg [facility] BMI 2024-02-08 19:12:00 30.73 kg/m2 [facility] Heart rate 2024-01-14 12:15:00 98 /min [facility] Body temperature 2024-01-14 12:15:00 36.56 Debbie [facility] Respiratory rate 2024-01-14 12:15:00 14 /min [facility] Oxygen saturation in Arterial blood by Pulse oximetry 2024-01-14 12:15:00 95 /min [facility] Systolic blood pressure 2024-01-14 12:00:00 140 mm[Hg] [facility] Diastolic blood pressure 2024-01-14 12:00:00 90 mm[Hg] [facility] Body height 2024-01-14 10:51:00 162.6 cm [facility] Body weight 2024-01-14 10:51:00 81.194 kg [facility] BMI 2024-01-14 10:51:00 30.73 kg/m2 [facility] Systolic blood pressure 2023-12-23 05:02:00 133 mm[Hg] [facility] Diastolic blood pressure 2023-12-23 05:02:00 84 mm[Hg] [facility] Heart rate 2023-12-23 05:02:00 78 /min [facility] Body temperature 2023-12-23 05:02:00 36.17 Debbie [facility] Respiratory rate 2023-12-23 05:02:00 17 /min [facility] Oxygen saturation in Arterial blood by Pulse oximetry 2023-12-23 05:02:00 91 /min [facility] Body height 2023-12-23 03:45:00 162.6 cm [facility] Body weight 2023-12-23 03:45:00 81.194 kg [facility] BMI 2023-12-23 03:45:00 30.73 kg/m2 [facility] Systolic blood pressure 2023-12-22 02:08:00 143 mm[Hg] [facility] Diastolic blood pressure 2023-12-22 02:08:00 92 mm[Hg] [facility] Heart rate 2023-12-22 02:08:00 81 /min [facility] Respiratory rate 2023-12-22 02:08:00 13 /min [facility] Oxygen saturation in Arterial blood by Pulse oximetry 2023-12-22 02:08:00 95 /min [facility] Body temperature 2023-12-22 01:33:00 36.72 Debbie [facility] Body height 2023-12-22 01:33:00 162.6 cm [facility] Body weight 2023-12-22 01:33:00 81.239 kg [facility] BMI 2023-12-22 01:33:00 30.74 kg/m2 [facility] Systolic blood pressure 2023-11-11 02:00:00 127 mm[Hg] [facility] Diastolic blood pressure 2023-11-11 02:00:00 87 mm[Hg] [facility] Heart rate 2023-11-11 02:00:00 79 /min [facility] Respiratory rate 2023-11-11 02:00:00 20 /min [facility] Oxygen saturation in Arterial blood by Pulse oximetry 2023-11-11 02:00:00 98 /min [facility] Body temperature 2023-11-11 01:31:00 36.28 Debbie [facility] Body height 2023-11-11 01:31:00 162.6 cm [facility] Body weight 2023-11-11 01:31:00 79.379 kg [facility] BMI 2023-11-11 01:31:00 30.04 kg/m2 [facility] Systolic blood pressure 2023-10-27 06:54:00 133 mm[Hg] [facility] Diastolic blood pressure 2023-10-27 06:54:00 94 mm[Hg] [facility] Heart rate 2023-10-27 06:54:00 95 /min [facility] Body temperature 2023-10-27 06:54:00 36.44 Debbie [facility] Respiratory rate 2023-10-27 06:54:00 22 /min [facility] Body height 2023-10-27 06:54:00 162.6 cm [facility] Body weight 2023-10-27 06:54:00 78.472 kg [facility] BMI 2023-10-27 06:54:00 29.70 kg/m2 [facility] Oxygen saturation in Arterial blood by Pulse oximetry 2023-10-27 06:54:00 94 /min [facility] Systolic blood pressure 2022-10-14 19:43:00 111 mm[Hg] [facility] Diastolic blood pressure 2022-10-14 19:43:00 74 mm[Hg] [facility] Heart rate 2022-10-14 19:43:00 98 /min [facility] Body temperature 2022-10-14 19:43:00 36.39 Debbie [facility] Respiratory rate 2022-10-14 19:43:00 22 /min [facility] Oxygen saturation in Arterial blood by Pulse oximetry 2022-10-14 19:43:00 94 /min [facility] Body height 2022-10-14 16:13:00 162.6 cm [facility] Body weight 2022-10-14 16:13:00 81.647 kg [facility] BMI 2022-10-14 16:13:00 30.90 kg/m2 [facility] Systolic blood pressure 2022-03-12 10:13:00 119 mm[Hg] [facility] Diastolic blood pressure 2022-03-12 10:13:00 75 mm[Hg] [facility] Heart rate 2022-03-12 10:13:00 105 /min [facility] Body temperature 2022-03-12 10:13:00 37.28 Debbie [facility] Respiratory rate 2022-03-12 10:13:00 19 /min [facility] Body height 2022-03-12 10:13:00 162.6 cm [facility] Body weight 2022-03-12 10:13:00 99.791 kg [facility] BMI 2022-03-12 10:13:00 37.76 kg/m2 [facility] Oxygen saturation in Arterial blood by Pulse oximetry 2022-03-12 10:13:00 96 /min [facility] Systolic blood pressure 2022-02-20 11:57:00 155 mm[Hg] [facility] Diastolic blood pressure 2022-02-20 11:57:00 88 mm[Hg] [facility] Heart rate 2022-02-20 11:57:00 105 /min [facility] Respiratory rate 2022-02-20 11:57:00 18 /min [facility] Oxygen saturation in Arterial blood by Pulse oximetry 2022-02-20 11:57:00 100 /min [facility] Body temperature 2022-02-20 09:25:00 37 Debbie [facility] Body height 2022-02-20 09:25:00 162.6 cm [facility] Body weight 2022-02-20 09:25:00 96.163 kg [facility] BMI 2022-02-20 09:25:00 36.39 kg/m2 [facility] Procedures Procedure Date / Time Performed Performing Clinician Source AC PANEL 20 + LACTIC ACID 2024-02-08 20:47:00 Christina Villarreal [facility] XR CHEST 1 VW 2024-02-08 19:47:00 Christina Villarreal [facility] URINALYSIS 2024-02-08 19:36:00 [facility] MAGNESIUM 2024-02-08 19:25:00 [facility] TROPONIN I 2024-02-08 19:25:00 Christina Villarreal [facility] COMP. METABOLIC PANEL ([id number]) 2024-02-08 19:25:00 Christina Villarreal [facility] ETHANOL 2024-02-08 19:25:00 Christina Villarreal [facility] CBC WITH DIFF 2024-02-08 19:25:00 Christina Villarreal [facility] N-TERMINAL PRO-BNP 2024-02-08 19:25:00 Christina Villarreal [facility] EKG-12 LEAD 2024-01-14 12:00:51 Jac Navarro [facility] LIPASE 2024-01-14 11:11:00 Jac Navarro [facility] TROPONIN I 2024-01-14 11:11:00 Jac Navarro [facility] COMP. METABOLIC PANEL ([id number]) 2024-01-14 11:11:00 Jac Navarro [facility] ETHANOL 2024-01-14 11:11:00 Jac Navarro [facility] CBC WITH DIFF 2024-01-14 11:11:00 [facility] N-TERMINAL PRO-BNP 2024-01-14 11:11:00 Jac Navarro [facility] COVID-19 (ID NOW RAPID TESTING) 2024-01-14 11:11:00 Jac Navarro [facility] CONSENT/REFUSAL FOR DIAGNOSIS AND TREATMENT 2024-01-14 10:44:32 Doctor Unassigned, [place] [facility] LIPASE 2023-12-23 04:17:00 Tyler Rowe [facility] COMP. METABOLIC PANEL ([id number]) 2023-12-23 04:17:00 Tyler Rowe [facility] CBC WITH DIFF 2023-12-23 04:17:00 [facility] 2023-12-23 04:17:00 Tyler Rowe [facility] CONSENT/REFUSAL FOR DIAGNOSIS AND TREATMENT 2023-12-23 03:40:32 Doctor Unassigned, [place] [facility] CT ABDOMEN PELVIS W CONTRAST 2023-12-22 02:31:05 Melinda Maciel [facility] LIPASE 2023-12-22 01:58:00 Mel[facility] COMP. METABOLIC PANEL ([id number]) 2023-12-22 01:58:00 Melinda Maciel [facility] ETHANOL 2023-12-22 01:58:00 Melinda Maciel [facility] CBC WITH DIFF 2023-12-22 01:58:00 Melinda Maciel [facility] PROTHROMBIN TIME / INR 2023-12-22 01:58:00 Wali Maciel [facility] URINALYSIS 2023-12-22 01:58:00 Mel[facility] CONSENT/REFUSAL FOR DIAGNOSIS AND TREATMENT 2023-12-22 01:19:14 Doctor Unassigned, [place] [facility] NOTICE OF PRIVACY PRACTICES 2023-11-11 01:24:24 Doctor Unassigned, [place] [facility] CONSENT/REFUSAL FOR DIAGNOSIS AND TREATMENT 2023-11-11 01:23:54 Doctor Unassigned, [place] [facility] COVID-19 (ID NOW RAPID TESTING) 2023-10-27 07:09:00 Jac Navarro [facility] NOTICE OF PRIVACY PRACTICES 2023-10-27 06:49:48 Doctor Unassigned, [place] [facility] CONSENT/REFUSAL FOR DIAGNOSIS AND TREATMENT 2023-10-27 06:47:40 Doctor Unassigned, [place] [facility] CT ABDOMEN PELVIS W CONTRAST 2022-10-14 17:33:00 Singer Melinda [facility] XR CHEST 1 VW 2022-10-14 17:10:37 Melinda Maciel [facility] TROPONIN I 2022-10-14 16:37:00 Mel[facility] COMP. METABOLIC PANEL ([id number]) 2022-10-14 16:37:00 Singer [facility] CBC WITH DIFF 2022-10-14 16:37:[address] [facility] PROTHROMBIN TIME / INR 2022-10-14 16:37:00 Wali Maciel [facility] URINALYSIS 2022-10-14 16:37[facility]-BNP 2022-10-14 16:37:00 Melinda Maciel [facility] CONSENT/REFUSAL FOR DIAGNOSIS AND TREATMENT 2022-10-14 15:56:36 Doctor Unassigned, [place] [facility] CONSENT/REFUSAL FOR DIAGNOSIS AND TREATMENT 2022-03-12 10:03:12 Doctor Unassigned, [place] [facility] XR CHEST 1 VW 2022-02-20 09:59:00 Christy Holliday [facility] LIPASE 2022-02-20 09:30:00 Christy Holliday [facility] TROPONIN I 2022-02-20 09:30:00 Christy Holliday [facility] COMP. METABOLIC PANEL ([id number]) 2022-02-20 09:30:00 Christy Holliday [facility] CBC WITH DIFF 2022-02-20 09:30:00 Christy Holliday [facility] N-TERMINAL PRO-BNP 2022-02-20 09:30:00 Christy Holliday [facility] NOTICE OF PRIVACY PRACTICES 2022-02-20 09:15:02 Doctor Unassigned, [place] [facility] CONSENT/REFUSAL FOR DIAGNOSIS AND TREATMENT 2022-02-20 09:14:47 Doctor Unassigned, [place] [facility] Encounters Start Date/Time End Date/Time Encounter Type Admission Type Attending [facility] Care Facility Care Department Encounter ID Source 2024-02-09 13:10:00 2024-02-09 15:14:00 Emergency E SOCORRO URSULA [facility] [id number] [facility] 2024-02-08 20:38:00 2024-02-08 21:40:00 Emergency X KEISHA DAVENPORT [facility] ERT [id number] [facility] 2024-02-08 20:38:00 2024-02-08 21:40:00 Emergency Keisha Davenport [facility] 1.2.840.114 350.1.13.10 4.2.7.2.686 [id number] 084 [id number] [facility] 2024-02-08 14:08:00 2024-02-08 17:06:00 Emergency Christina Villarreal [facility] 1.2.840.114 350.1.13.10 4.2.7.2.686 [id number] [id number] [facility] 2024-01-14 04:46:00 2024-01-14 06:23:00 Emergency X JAC NAVARRO [facility] ERT [id number] [facility] 2024-01-14 04:46:00 2024-01-14 06:23:00 Emergency Jac Navarro [facility] 1.2.840.114 350.1.13.10 4.2.7.2.686 [id number] 084 [id number] [facility] 2023-12-22 21:51:00 2023-12-22 23:13:00 Emergency X TYLER ROWE [facility] ERT [id number] [facility] 2023-12-22 21:51:00 2023-12-22 23:13:00 Emergency Tyler Rowe [facility] 1.2.840.114 350.1.13.10 4.2.7.2.686 [id number] 084 [id number] [facility] 2023-12-21 19:36:00 2023-12-21 21:52:00 Emergency X MELINDA MACIEL [facility] ERT [id number] [facility] 2023-12-21 19:36:00 2023-12-21 21:52:00 Emergency Melinda Maciel [facility] 1.2.840.114 350.1.13.10 4.2.7.2.686 [id number] [facility] 2023-11-10 19:29:00 2023-11-10 20:14:00 Emergency X CHRISTY HOLLIDAY [facility] ERT [id number] [facility] 2023-11-10 19:29:00 2023-11-10 20:14:00 Emergency Christy Holliday [facility] 1.2.840.114 350.1.13.10 4.2.7.2.686 [id number] 084 [id number] [facility] 2023-10-27 00:49:00 2023-10-27 01:41:00 Emergency X JAC NAVARRO [facility] ERT [id number] [facility] 2023-10-27 00:49:00 2023-10-27 01:41:00 Emergency Jac Navarro [facility] 1.2.840.114 350.1.13.10 4.2.7.2.686 [id number] [id number] [facility] 2023-07-15 00:00:00 2023-07-15 00:00:00 Outpatient DARIEN LOBO [id number] Maria Elena [facility] 2023-06-16 11:30:00 2023-06-16 11:30:00 Outpatient DARIEN LOBO [id number] Maria Elena [facility] 2023-05-18 00:00:00 2023-05-18 00:00:00 Outpatient MARIA ELENA CHAN [id number] Maria Elena [facility] 2022-10-14 10:07:00 2022-10-14 14:39:00 Emergency MELINDA ROUSE [facility] ERT [id number] [facility] 2022-10-14 10:07:00 2022-10-14 14:39:00 Emergency Singer Melinda [facility] 1.2.840.114 350.1.13.10 4.2.7.2.686 [id number] [id number] [facility] 2022-03-12 05:15:00 2022-03-12 06:41:00 Emergency X CHRISTY HOLLIDAY [facility] ERT [id number] [facility] 2022-03-12 05:15:00 2022-03-12 06:41:00 Emergency Christy Holliday [facility] 1.2.840.114 350.1.13.10 4.2.7.2.686 [id number] 084 [id number] [facility] 2022-02-20 04:17:00 2022-02-20 07:16:00 Emergency X CHRISTY HOLLIDAY [facility] ERT [id number] [facility] 2022-02-20 04:17:00 2022-02-20 07:16:00 Emergency Christy Holliday [facility] 1.2.840.114 350.1.13.10 4.2.7.2.686 [id number] [facility] 2021-02-03 11:10:00 2021-02-03 11:10:00 Outpatient R DENISE SUNG [facility] [id number] [facility] 2021-01-13 11:20:00 2021-01-13 11:20:00 Outpatient [facility] [id number] [facility] 2020-11-10 08:20:00 2020-11-10 08:20:00 Outpatient KARLEY ESTRADA [facility] [id number] [facility] Results Test Description Test Time Test Comments Results Result Co mments Source [facility] + Lactic [id number] 20:52:47* Test Item Value Reference Range Interpretation Comme nts PH (test code = 2) 7.39 7.35-7.45 PCO2 (test code = 6971972072) 42 35-45 PO2 (test code = 8828349031) 76 80-100 L HCO3 (test code = 4691616872) 25 22-26 BE (test code = 2696053621) -0.1 -3.0-3.0 THB (test code = 2613436063) 14.3 g/dL 13.5-18.0 %O2HB (test code = 0504264110) 85.8 % 94.0-99.0 L %COHB ART (test code = 4464746079) 9.0 % 0.0-1.5 H %METHB ART (test code = 7054004601) 0.3 % 0.4-1.5 L VOL%O2 ART (test code = 2634737748) 17.3 % 15.0-23.0 NA (test code = 5083254388) 140 mmol/L 135-145 K+ (test code = 2213206059) 4.1 mmol/L 3.5-5.0 AC CA IONZ (test code = 8765687773) 4.50 mg/dL 4.50-5.30 GLUCOSE (test code = 2926406517) 105 mg/dL 70-110 LACTIC ACID (test code = 9023850018) 2.60 mmol/L 0.50-2.20 H Lab Interpretation (test cod e = 12951-7) Abnormal [facility] Center[facility]rop[facility] [id number] 20:34:14* Test Item Value Reference Range Interpretation Comme nts TROPONIN I (test code = 4631252503) 0.008 ng/mL <=0.034 LOUISE (test code = [...] of biotin. Lab Interpretation (test code = 95837-1) Normal [facility] Sig-[id number] 20:31:35* Test Item Value Reference Range Interpretation Comme nts NT-proBNP (test code = 61373-0) 188 pg/mL <=125 LOUISE (test code = LOUISE) Result Indeterminate-Consid er causes of NT-proBNP elevation other than Heart failure such as acute coronary syndrome, pulmonary embolism, pulmonary hypertension, sepsis, stroke, and renal dysfunction. Lab Interpretation (test code = 25660-4) Abnormal [facility] Metabolic Panel (91411)2024-02-08 20:21:10* Test Item Value Reference Range Interpretation Comme nts NA (test code = 5280114011) 135 mmol/L 135-145 K (test code = 2212492124) 4.5 mmol/L 3.5-5.0 CL (test code = 3893778648) 100 mmol/L 98-108 CO2 TOTAL (test code = 4507330149) 22 mmol/L 23-31 L AGAP (test code = 6160878426) 13 2-16 BUN (test code = 8273567654) 8 mg/dL 7-23 GLUCOSE (test code = 9000547712) 97 mg/dL 70-110 CREATININE (test code = 2160-0) 0.65 mg/dL 0.60-1.25 TOTAL BILI (test code = 6669431364) 0.4 mg/dL 0.1-1.1 CALCIUM (test code = 4965270721) 9.4 mg/dL 8.6-10.6 T PROTEIN (test code = 8061239063) 8.2 g/dL 6.3-8.2 ALBUMIN (test code = 3510762987) 4.7 g/dL 3.5-5.0 ALK PHOS (test code = 1579554579) 76 U/L 34-122 ALTv (test code = 1742-6) 33 U/L 5-50 AST(SGOT) (test code = 1676778457) 54 U/L 13-40 H eGFR (test code = 10742-3) 111.3 mL/min/1.73m2 CKD-EPI eGFR (2020). Assuming creatinine has been stable day-to-day for at least three months, the eGFR indicates Category G1 (>= 90 mL/min/1.73 m2) Lab Interpretation (test code = 55226-9) Abnormal [facility] Center[facility]esium2024-04-01 20:21:10* Test Item Value Reference Range Interpretation Comme nts MAGNESIUM (test code = 8800665798) 2.1 mg/dL 1.7-2.4 Lab Interpretation (test cod e = 71607-4) Normal [facility] CHE[facility] 1 [id number] 20:07:21EXAM: XR CHEST 1 VW COMPARISON: 01/14/2024 HISTORY: sob FINDINGS: Lungs: Slightly hyperexpanded lungswith subtle progression of interstitialprominence. Trace pleural effusions could be present. Heart/Mediastinum: Stable cardiomegaly. Bones and soft tissues: No osseous abnormality is visualized.[facility] Cbc with [id number] 20:04:26* Test Item Value Reference Range Interpretation [...] 33.8 g/dL 31.2-35.0 RDW-SD (test code = 48074-1) 50.5 fL 38.5-51.6 RDW-CV (test code = 788-0) 14.3 % 12.1-15.4 PLT (test code = 777-3) 206 150-328 MPV (test code = 66051-4) 9.1 fL 9.8-13.0 L NRBC/100 WBC (test code = 5534848170) 0.0 0.0-10.0 NRBC x10^3 (test code = 1925083496) See_Comment [Automated PPT Reasearcha ge] The system which generated this result transmitted reference range: 10*3/?L. The reference range was not used to interpret this result as normal/abnormal. GRAN MAT (NEUT) % (test code = 770-8) 81.0 % IMM GRAN % (test code = 4624550218) 1.20 % LYMPH % (test code = 736-9) 10.9 % MONO % (test code = 5905-5) 6.8 % EOS % (test code = 713-8) 0.0 % BASO % (test code = 706-2) 0.1 % GRAN MAT x10^3(ANC) (test code = 9044689536) 9.31 10*3/uL 1.99-6.95 H IMM GRAN x10^3 (test code = 5565648044) 0.14 10*3/uL 0.00-0.06 H LYMPH x10^3 (test code = 731-0) 1.25 10*3/uL 1.09-3.23 MONO x10^3 (test code = 742-7) 0.78 10*3/uL 0.36-1.02 EOS x10^3 (test code = 711-2) 0.06-0.53 L BASO x10^3 (test code = 704-7) 0.01-0.09 Lab Interpretation (test code = 60825-3) [facility] (32317[facility]2023-12-23 04:53:26* Test Item Value Reference Range Interpretation Comme nts NA (test code = 1747811357) 135 mmol/L 135-145 K (test code = 0260831153) 3.2 mmol/L 3.5-5.0 L CL (test code = 2185386191) 104 mmol/L 98-108 CO2 TOTAL (test code = 1800758520) 23 mmol/L 23-31 AGAP (test code = 1605131046) 8 2-16 BUN (test code = 3554580460) 11 mg/dL 7-23 GLUCOSE (test code = 5180103097) 82 mg/dL 70-110 CREATININE (test code = 2160-0) 0.64 mg/dL 0.60-1.25 TOTAL BILI (test code = 0008044729) 0.5 mg/dL 0.1-1.1 CALCIUM (test code = 7344029579) 8.8 mg/dL 8.6-10.6 T PROTEIN (test code = 1322966073) 6.7 g/dL 6.3-8.2 ALBUMIN (test code = 3413655357) 4.1 g/dL 3.5-5.0 ALK PHOS (test code = 2407688423) 46 U/L 34-122 ALTv (test code = 1742-6) 21 U/L 5-50 AST(SGOT) (test code = 4122595350) 43 U/L 13-40 H eGFR (test code = 07462-2) 111.8 mL/min/1.73m2 CKD-EPI eGFR (2020). Assuming creatinine has been stable day-to-day for at least three months, the eGFR indicates Category G1 (>= 90 mL/min/1.73 m2) Lab Interpretation (test code = 56977-6) Abnormal [facility] Center[facility]2024-[facility]-14 04:53:26* Test Item Value Reference Range Interpretation Comme nts LIPASE (test code = 9520153266) 105 U/L 0-220 Lab Interpretation (test cod e = 59000-5) Normal [facility] WITH [id number] 04:34:24* Test Item Value Reference Range Interpretation [...] 33.0 g/dL 31.2-35.0 RDW-SD (test code = 30608-1) 50.9 fL 38.5-51.6 RDW-CV (test code = 788-0) 13.7 % 12.1-15.4 PLT (test code = 777-3) 232 150-328 MPV (test code = 70567-5) 8.7 fL 9.8-13.0 L NRBC/100 WBC (test code = 7379855124) 0.0 0.0-10.0 NRBC x10^3 (test code = 8491299311) See_Comment [Automated messa ge] The system which generated this result transmitted reference range: 10*3/?L. The reference range was not used to interpret this result as normal/abnormal. GRAN MAT (NEUT) % (test code = 770-8) 58.8 % IMM GRAN % (test code = 1823753629) 0.90 % LYMPH % (test code = 736-9) 27.8 % MONO % (test code = 5905-5) 10.5 % EOS % (test code = 713-8) 1.3 % BASO % (test code = 706-2) 0.7 % GRAN MAT x10^3(ANC) (test code = 1958934502) 5.68 10*3/uL 1.99-6.95 IMM GRAN x10^3 (test code = 9628656196) 0.09 10*3/uL 0.00-0.06 H LYMPH x10^3 (test code = 731-0) 2.69 10*3/uL 1.09-3.23 MONO x10^3 (test code = 742-7) 1.02 10*3/uL 0.36-1.02 EOS x10^3 (test code = 711-2) 0.13 10*3/uL 0.06-0.53 BASO x10^3 (test code = 704-7) 0.07 10*3/uL 0.01-0.09 Lab Interpretation (test code = 22483-1) [facility]normal [facility] W [id number] 03:32:43Exam: CT Abdomen and Pelvis With Contrast, [...] acute osseous abnormality.Soft tissues: Small fat-containing inguinal hernias.[facility] CenterEthanol2024-02-13 02:32:24* Test Item Value Reference Range Interpretation Comme nts ALCOHOL (test code = 6833192210) 117 mg/dL LOUISE (test code = LOUISE) <10 Scarsuto63-596 Toxic>100 Depression of NIGHT TIME BABYSITTER>400 Fatalities Reported [facility] CenterCom. Metabolic Panel (64952)2023-12-22 02:31:43* Test Item Value Reference Range Interpretation Comme nts NA (test code = 7437608155) 133 mmol/L 135-145 L K (test code = 2717701657) 3.3 mmol/L 3.5-5.0 L CL (test code = 6783459776) 102 mmol/L 98-108 CO2 TOTAL (test code = 1558138489) 25 mmol/L 23-31 AGAP (test code = 8806707875) 6 2-16 BUN (test code = 2098148713) 11 mg/dL 7-23 GLUCOSE (test code = 6309646149) 75 mg/dL 70-110 CREATININE (test code = 1419897526) 0.51 mg/dL 0.60-1.25 L TOTAL BILI (test code = 0277168209) 0.5 mg/dL 0.1-1.1 CALCIUM (test code = 9827429948) 8.9 mg/dL 8.6-10.6 T PROTEIN (test code = 0091319431) 7.2 g/dL 6.3-8.2 ALBUMIN (test code = 3255454227) 4.5 g/dL 3.5-5.0 ALK PHOS (test code = 0218309575) 46 U/L 34-122 ALTv (test code = 1742-6) 15 U/L 5-50 AST(SGOT) (test code = 1205049130) 24 U/L 13-40 eGFR (test code = 68426-0) 119.7 mL/min/1.73m2 CKD-EPI eGFR (2020). Assuming creatinine has been stable day-to-day for at least three months, the eGFR indicates Category G1 (>= 90 mL/min/1.73 m2) Lab Interpretation (test code = 17940-5) Abnormal [facility] CenterLipase2024-02-13 02:31:43* Test Item Value Reference Range Interpretation Comme nts LIPASE (test code = 4501687446) 121 U/L 0-220 Lab Interpretation (test cod e = 90528-9) Normal [facility] CenterProthrombin Time / [id number] 02:21:02* Test Item Value Reference Range Interpretation Comme nts PROTIME PATIENT (test code = 5964-2) 10.5 10.1-12.6 INR (test code = 6301-6) 0.9 Normal INR <1.1; Warfarin Therapeutic range 2.0 to 3.0 or 2.5 to 3.5, depending upon the indications. Lab Interpretation (test code = 01116-8) Normal [facility] CenterCb with [id number] 02:14:04* Test Item Value Reference Range Interpretation [...] 34.0 g/dL 31.2-35.0 RDW-SD (test code = 11271-6) 49.1 fL 38.5-51.6 RDW-CV (test code = 788-0) 13.5 % 12.1-15.4 PLT (test code = 777-3) 260 150-328 MPV (test code = 70869-4) 8.7 fL 9.8-13.0 L NRBC/100 WBC (test code = 0484914931) 0.0 0.0-10.0 NRBC x10^3 (test code = 6981820517) See_Comment [Automated messa ge] The system which generated this result transmitted reference range: 10*3/?L. The reference range was not used to interpret this result as normal/abnormal. GRAN MAT (NEUT) % (test code = 770-8) 64.3 % IMM GRAN % (test code = 7193624577) 0.90 % LYMPH % (test code = 736-9) 24.2 % MONO % (test code = 5905-5) 9.1 % EOS % (test code = 713-8) 0.7 % BASO % (test code = 706-2) 0.8 % GRAN MAT x10^3(ANC) (test code = 7025172332) 8.73 10*3/uL 1.99-6.95 H IMM GRAN x10^3 (test code = 1190212763) 0.12 10*3/uL 0.00-0.06 H LYMPH x10^3 (test code = 731-0) 3.28 10*3/uL 1.09-3.23 H MONO x10^3 (test code = 742-7) 1.23 10*3/uL 0.36-1.02 H EOS x10^3 (test code = 711-2) 0.10 10*3/uL 0.06-0.53 BASO x10^3 (test code = 704-7) 0.11 10*3/uL 0.01-0.09 H Lab Interpretation (test code = 77631-2) Abnormal [facility]SH[facility]IR[facility]ITALNOHEMY [id number] 10:16:22* Test Item Value Reference Range Interpretation Comments TROPONIN I (test code = 1712289302) 0.007 ng/mL See_Comment [Automated message] The system [...] of biotin. Lab Interpretation (test code = 23613-9) Normal [facility] CenterN-TERMINAL [id number] 10:13:01* Test Item Value Reference Range Interpretation Comme nts NT-proBNP (test code = 4574644442) 52 pg/mL See_Comment [Automated message] The system which generated this result transmitted reference range: <=125. The reference range was not used to interpret this result as normal/abnormal. LOUISE (test code = LOUISE) Biotin has been reported to cause a negative bias, interpret results relative to patient's use of biotin. Lab Interpretation (test code = 06022-1) Normal [facility] CenterCOMP. METABOLIC PANEL (08232)2022-02-20 10:04:02* Test Item Value Reference Range Interpretation Comme nts NA (test code = 4755108606) 137 mmol/L 135-145 K (test code = 9972960244) 3.6 mmol/L 3.5-5.0 CL (test code = 7828812179) 99 mmol/L 98-108 CO2 TOTAL (test code = 2302864020) 25 mmol/L 23-31 AGAP (test code = 5183136329) 2-16 BUN (test code = 9275477711) 6 mg/dL 7-23 L GLUCOSE (test code = 1789705040) 88 mg/dL 70-110 CREATININE (test code = 0025787609) 0.55 mg/dL 0.60-1.25 L TOTAL BILI (test code = 4170573617) 0.8 mg/dL 0.1-1.1 CALCIUM (test code = 0644774927) 8.9 mg/dL 8.6-10.6 T PROTEIN (test code = 3147075289) 7.5 g/dL 6.3-8.2 ALBUMIN (test code = 3730525643) 4.8 g/dL 3.5-5.0 ALK PHOS (test code = 2501072660) 113 U/L 34-122 ALTv (test code = 1742-6) 84 U/L 5-50 H AST(SGOT) (test code = 0315741461) 107 U/L 13-40 H eGFR (test code = 7272804838) mL/min/1.73m2 LOUISE (test code = LOUISE) Association [...] imaging tests). Lab Interpretation (test code = 83592-5) [facility] [id number] 10:03:21* Test Item Value Reference Range Interpretation Comme nts LIPASE (test code = 4799461842) 193 U/L 0-220 Lab Interpretation (test cod e = 39227-0) Normal [facility] WITH [id number] 09:39:17* Test Item Value Reference Range Interpretation [...] g/dL 31.2-35.0 H RDW-SD (test code = 05742-2) 44.4 fL 38.5-51.6 RDW-CV (test code = 788-0) 11.9 % 12.1-15.4 L PLT (test code = 777-3) See_Comment [Automated messa ge] The system which generated this result transmitted reference range: 150 - 328 10*3/?L. The reference range was not used to interpret this result as normal/abnormal. MPV (test code = 31010-8) 9.2 fL 9.8-13.0 L NRBC/100 WBC (test code = 1378485255) See_Comment [Automated [employer] ssage] The system which generated this result transmitted reference range: 0.0 - 10.0 /100 WBCs. The reference range was not used to interpret this result as normal/abnormal. NRBC x10^3 (test code = 4993650480) <0.01 See_Comment [Automated messa ge] The system which generated this result transmitted reference range: 10*3/?L. The reference range was not used to interpret this result as normal/abnormal. GRAN MAT (NEUT) % (test code = 770-8) 69.9 % IMM GRAN % (test code = 8095570902) 1.50 % LYMPH % (test code = 736-9) 18.9 % MONO % (test code = 5905-5) 7.0 % EOS % (test code = 713-8) 1.9 % BASO % (test code = 706-2) 0.8 % GRAN MAT x10^3(ANC) (test code = 1661657065) 7.15 10*3/uL 1.99-6.95 H IMM GRAN x10^3 (test code = 4499138790) 0.15 10*3/uL 0.00-0.06 H LYMPH x10^3 (test code = 731-0) 1.93 10*3/uL 1.09-3.23 MONO x10^3 (test code = 742-7) 0.72 10*3/uL 0.36-1.02 EOS x10^3 (test code = 711-2) 0.19 10*3/uL 0.06-0.53 BASO x10^3 (test code = 704-7) 0.08 10*3/uL 0.01-0.09 Lab Interpretation (test code = 51871-9) Abnormal [facility] Notes Date/Time Note Provider Source 2024-02-08 21:37:56 HXfeCcEM32yxm3uxiiIuoxX78Q+ZlkfFHgJ le/NBc2RV6EXEO2+V70V+vj6T3+po6806-8 02-07T21:37:56 Pt left AMA 08315-0Fmvwglmky department EvciZX5027-17-11V65:38:11Emergency department NoteTXT1.2.840.655661.1.13.104.2.7. 2.814124|[id number] for patient jsrl74917-0ZsfzTLHIXDSDIBUDsovobior C-CDA narrative htld916758742Rmkzb Raul Cristian RNUT[id number] 5XUTLPJBQXFOUUIQHUIVNZL0507-74-54Q9 1:38:111.2.840.954766.1.72.3.15|1.2 .840.150918.1.13.104.2.7.2.727879_2 [id number] Kylie Foster RN [facility] 2024-02-08 21:32:00 D163zBkiUA/UzVFueVYBgccskfIQHW2NtzJ 9g/I07GpBeNzpBP1DoNLZEIH8s4iH8977-0 02-07T21:32:00 Patient leaving AMA after self removing [...] ambulatory with steady [place], [place] NAD 27067-6Twaanbisb department CgtbWD9237-92-55B10:40:32[facility] NoteTXT1.2.840.355632.1.13.104.2.7. 2.016526|[id number] for patient hiku22956-9UfupMXMZZNRTOKAJeyrymsue C-CDA narrative textUT[id number] 3BBTJACDODGTOCAZTSTVCHE1773-72-19H4 1:40:321.2.840.904129.1.72.3.15|1.2 .840.924057.1.13.104.2.7.2.727879_2 [id number] [facility] 2024-02-08 20:54:38 cN53ZmQ+eF5Kj6qD2ffHEdMy/bCPCdxwEFA CdyZrzqSQwhxFVPGXix6Ts6Ib2Fis2204-4 02-07T20:54:38 Pt states he uses O2 at home, portable O2 is broken 22209-9Hkagbyept department LwqjOM1218-93-43O51:55:13[facility] NoteTXT1.2.840.743178.1.13.104.2.7. 2.818178|[id number] for patient etct18095-5NrqsZGHFPPQDIOGGcdshsvwm C-CDA narrative text[address]JnqtOrypobkjiYsbsfzgxsUBGR637582598 6VARGNZTJRUKBPRNWOSIAXP4896-01-36L1 0:55:131.2.840.376702.1.72.3.15|1.2 .840.836651.1.13.104.2.7.2.727879_2 [id number] [facility] 2024-02-08 20:51:11 el/w2YTNZ+fAkuJthOhefUyw85XV/x7DhYW 73noMu9iMk0yyodT7zcEnXb+61nLn9416-7 02-07T20:51:11 Pt ambulates with cane 67348-8Gmksnvsmr department MmohKQ5095-19-01B33:51:26[facility] NoteTXT1.2.840.060185.1.13.104.2.7. 2.961985|[id number] for patient tjqu77243-9UoimANJZQEGYYPCBoqcejtnx C-CDA narrative textUT64 Wright StreetGlvpWggxymbvdGqmpbwguwADJQ322101833 8ULNHJRLJGDWFSVHIGKWCMQ3458-34-84N0 0:51:261.2.840.243785.1.72.3.15|1.2 .840.241075.1.13.104.2.7.2.727879_2 [id number] [facility] 2024-02-08 20:43:13 5OdluaeuSKkNrPMVoJ702dG/9GbsgI+2tFK wSCRRa/jxCVb/9ffxnwQNTmp/eDEf2422-0 02-07T20:43:13 CC: Pt arrives SOB after leaving [facility] earlier in the shift. He reports he [...] 3 BC powders and drank 3 beers." 86568-0Rqltzgeok department Triage uodeKY4100-67-60G91:48:36Emergency department Triage noteTXT1.2.840.903442.1.13.104.2.7. 2.286812|[id number] for patient xffy34098-4Traybtrrz department NoteLNNARRATIVEFormatted C-CDA narrative wvdv246317315Bsikwi R Shehadeh RNUT[address] StreetPpwfSryfthjmcAybfktwahJYVK084787062 5XRDLQOZZBFMUSWQBFLIQZQ6023-77-61R9 0:48:361.2.840.249892.1.72.3.15|1.2 .840.594230.1.13.104.2.7.2.727879_2 [id number] Leah King RN [facility] 2024-02-08 17:04:05 z8Ihwnj+pLk6TvTSBDoFQWJlmIeZK4km8T+ vXQOnp/Gafi/Bt0HmKc4BVOc6ZcBp5096-4 7:04:05 Patient walked to the nurses station and stated "I have another emergency and I have to leave right now. I need this IV taken out immediately."Encouraged patient to stay and he stated "I have to leave immediately and I don't want to take this out myself" IV d/c at this time and patient ambulated out of the department with a steady gait. 51197-7Wcoifdmlu department SywlDX0989-24-15D58:05:22[facility] NoteTXT1.2.840.098844.1.13.104.2.7. 2.411250|[id number] for patient wjbj35012-1PyplPNWDFCXHEIVWzrrzhaml C-CDA narrative [id number] M Hayes RNUT[address] StreetWjpqVtygsudvnQbdmqjpvsFHWZ389424545 9PUVXFTULWBBLKKFWLPZISW0343-55-52O8 7:05:221.2.840.486990.1.72.3.15|1.2 .840.381441.1.13.104.2.7.2.727879_2 [id number] Allison Zhang RN [facility] 2024-02-08 14:23:02 aojemwCtpnRstFvW7t2uvLx1qY4H/Z3pRfm uswrhKjDYJwQ/mIrRjvBo5AjCuvKk0506-7 4:23:02 Pt ambulates with a cane 04187-7Lhssstwbm department WszeGB7291-46-50F58:23:12[facility] NoteTXT1.2.840.508632.1.13.104.2.7. 2.711347|[id number] for patient tndx64036-5IczjKBPGTMNBRYPFxqoaoqwu C-CDA narrative vezd012304189QrvsvKylie Foster RN[address] SdsiLkbudspbbZyjoszkrvXVJV795802976 3FJHMCODDQVSPSGKTBDMMBU3819-02-64Q6 4:23:121.2.840.537096.1.72.3.15|1.2 .840.291573.1.13.104.2.7.2.727879_2 [id number] Kylie Foster RN [facility] 2024-02-08 14:13:15 G9i476/95PpGN1Uo3ixnowhJorXWoKtImea APxukpZO8BU7K0RvWVr3ZEobjOARj7474-0 02-07T14:13:15 Pt has taken 8-packets of BC [...] only thing that helps." Face is flushed. 94873-2Iaeatorzf department Triage lubvBA7863-16-96Q45:17:26[facility] Triage noteTXT1.2.840.597700.1.13.104.2.7. 2.179081|[id number] for patient pmeo68317-3Inplpxfkt department NoteLNNARRATIVEFormatted C-CDA narrative naut873970627Yqxkvfz Fizurdo RNUT[address] KjxxJqidyochjIquzjsgyoYMIE702048453 1OWMKVBCCRFBYUJUHZZWFYE7444-87-47A3 4:17:261.2.840.485948.1.72.3.15|1.2 .840.414738.1.13.104.2.7.2.727879_2 [id number] Hali Aviles RN [facility] 2024-01-14 06:16:25 0Gwz5NnwIz0Ob7g1gnACLzy2Lt6F/FhSiR0 NK0fQY9yofcdErn+vMsL7iNynicHb1581-7 06:16:25 Pt given printed and verbal discharge [...] w/d, pt leaving in no apparent distress, 56384-9Ubnnmjmvt department OkosZZ6581-74-28J52:17:20[facility] NoteTXT1.2.840.468193.1.13.104.2.7. 2.176963|[id number] for patient xlnn92357-7QgjjGGFMINFLMARHjdcyiuoq C-CDA narrative text[id number] 9UMCDPJDYEHXWTZXHUGGQVV4412-68-40P0 6:17:201.2.840.669126.1.72.3.15|1.2 .840.824272.1.13.104.2.7.2.727879_2 [id number] [facility] 2024-01-14 04:49:43 j1VLaumOQApPm8h2dlI4NWHxvo3Bx+E0JFo 2p8UF4oPr2phgKDgoAcnNa4auJoLz2161-3 04:49:43 CC: "My COPD is acting up [...] ext without difficulty, amb with steady gait 82691-8Fwwaqyysp department Triage naeeYN2581-71-48B94:55:49[facility] Triage noteTXT1.2.840.610640.1.13.104.2.7. 2.452167|[id number] for patient dxxu62863-1Nijpsjwng department NoteLNNARRATIVEFormatted C-CDA narrative vkwm673037411Ldoyxm R Shehadeh RNUT[id number] 2QVOTUJFFQLTHEICBBHZCQN6329-68-10G3 4:55:491.2.840.589155.1.72.3.15|1.2 .840.770252.1.13.104.2.7.2.727879_2 [id number] Leah King RN [facility] - Health 2024-01-14 04:43:00 Pcs08fgwN8ppGRzDauQuv2c0AvOxqm0S3vj djsmrB+1jbg1XwdxvmxAz60xJg8u/07T04:43:00Associated Order(s): EKG-12 Lead ROUTINE ONCEPre-Procedure Diagnose(s): Chest pain, unspecified typePost-Procedure Diagnose(s): Chest pain, unspecified type [facility] Emergency Department NotePatient Name: aRndy BrionesDate of : 1970 53 year old maleTreatment Room: [facility]ED0Drcqgxc Record Number: [id number] Care Physician: Adrianna King Escorted by: Family [5]Mode of Arrival: Personal means [1]EMS Treatment Prior to ED Arrival:TOGGLER treatment: NTGPTA treatment comments: 0.4 mg SL taken TOGGLER, no releifTravel and Exposure Screening:SymptomsDoes patient have [...] Resident: Max Nur Results:Lab ResultsCOMP. METABOLIC PANEL (09593) - AbnormalResult Value Ref RangeNA 138 135 [...] 49 (*) 13 - 40 U/LeGFR 93.3 mL/min/1.56w8YMN WITH DIFF - AbnormalWBC 11.59 (*) 4.20 [...] 220 U/LCOVID-19 (ID NOW RAPID TESTING) - UcyxtvLRLM-XoL-1 Rapid ID NOW Not Detected Not DetectedETHANOLALCOHOL 62 mg/dLEKG:If EKG completed, see Procedure Note.Orders and Treatments:Orders Placed This EncounterProcedures XR CHEST 1 VW TROPONIN I COMP. METABOLIC PANEL (09317) LIPASE, SERUM CBC WITH DIFF N-Terminal Pro-Bnp Ethanol COVID-19 (ID NOW TESTING) Lab Only COVID Interpretation O2 Per ProtocolOrders Placed This EncounterMedications morpHINE (4 mg/mL) injection 4 mg ondansetron (ZOFRAN (PF)) injection 4 mg ipratropium-albuteroL (DUONEB) 0.5 mg-3 mg(2.5 mg base)/3 mL nebulizer solution 3 mLFirst Provider Eval:ED EventsDate/Time Event User Tswkbqpz71/07/24 0510 Medical Screening Begins JAC NAVARRO MD --01/14/24 0510 First Provider Evaluation JAC NAVARRO MD --ED COURSEDiagnosis/Impression as of 01/14/24 0605Chest pain, unspecified typeBronchitisProcedures:EKG-12 Lead ROUTINE ONCEDate/Time: 01/14/2024 5:24 AMPerformed by: Jca Navarro MDAuthorized by: Jac Navarro MDECG interpreted by ED Physician in the absence of a sound engineering technician: yesPrevious ECG:Previous ECG: Compared to currentSimilarity: No [...] on fileFollow-up:Electronically signed by:Jac Navarro MD01/14/24 0600 82198-8Lzlzovcau Emergency department VoebXO9620-44-29K74:00:50Physician Emergency department NoteTXT1.2.840.141950.1.13.104.2.7. 2.695535|[id number] for patient oovu26230-0Zyluobvub department NoteLNNARRATIVEFormatted C-CDA narrative text[address] RusmWbogkotgkFacoexwfhSMPQ260263653 0UMCJDCQUWVLBVYGVVHFAAY3582-52-37W7 6:00:501.2.840.857014.1.72.3.15|1.2 .840.411684.1.13.104.2.7.2.727879_2 [id number] [facility] 2023-12-22 23:12:16 OfR1+prNlsXaaX7NUgRB6qcBWqc4DhPGrJ2 wPAxOeyboWRLmHgKl21u2HcCzm7fZ4898-2 12-22T23:12:16 Pt given printed and verbal discharge [...] with steady gait, in no apparent distress, 78830-5Drgupgphp department RcegBH7557-86-83E28:13:50Emergen department NoteTXT1.2.840.081749.1.13.104.2.7. 2.176068|[id number] for patient anbv27463-1HcjiJRVCCBUFNTEUljnnltnr C-CDA narrative roto137568188NcujzMary Magaña RNUT[address] FbyoBldxrerjrXtcjxvwogKTUM549942988 6FDDQSVQSIGTHJKLXPIFTPJ3288-73-16X4 3:13:501.2.840.403438.1.72.3.15|1.2 .840.433863.1.13.104.2.7.2.727879_2 [id number] Mary Magaña RN [facility] 2023-12-22 21:41:55 fPWiN8AlkB45OtBzwsrtjHNzQLNUQDsrIDi jYPKWQtksmiTsbJsmz3z+8+AQU5M44059-3 12-22T21:41:55 Pt arrives ambulatory to ED reporting bleeding with stools and 10/10 abdominal pain. States he was here last night but had to leave before receiving results d/t having to work. Says the pain became worse so he came back in. 13502-4Mqftsnozd department Triage cuqmWS0725-54-26O06:48:52[facility] department Triage noteTXT1.2.840.839502.1.13.104.2.7. 2.842506|[id number] for patient pwks41629-6Hijlvoyfd department NoteLNNARRATIVEFormatted C-CDA narrative ihbp381780002Mtjzyv L Williams RN[address] ZqfdJkaaitgjtYgzsoubtiAFFR108214742 5MKERANEXXAUGEZYEFFKPCT0956-09-09H0 1:48:521.2.840.352027.1.72.3.15|1.2 .840.189179.1.13.104.2.7.2.727879_2 [id number] Leah Lizama RN [facility] 2023-12-21 21:31:00 Es3QyNdEF+f5GlX9bV/NY3L3Xayg44Jo5v4 11zog+FFrIQPMD1F+wdt1Ts9p6a8G6239-1 12-21T21:31:00 Patient leaving AMA,discussed risks of leaving against medical advice, Dr. Maciel aware and notified of patient's decision.Patient encouraged to seek medical attention for any new/prolonged/worsening of symptoms and stressed importance of follow up with a medical provider as soon as possible. AMA form explained, patient signed form.IV d'cd, dressing to site.Patient leaving ambulatory with steady gait, appears in no distress. [address]-5Cwhdpydkb[address] LfxuOL0406-34-17N74:38:39[facility] NoteTXT1.2.840.208846.1.13.104.2.7. 2.866914|[id number] for patient ojjb45162-7JkfgJFXGMHSSRYSGpngxywfh C-CDA narrative gmkt288601019IatwpMary Magaña RNUT[id number] 1LFAQZTKVENPCJJYPCQFNSD9552-16-60M5 1:38:391.2.840.366444.1.72.3.15|1.2 .840.386628.1.13.104.2.7.2.727879_2 [id number] Mary Magaña RN [facility] 2023-12-21 21:30:00 5Pw6Kf+NjtS1GZE70gofhBslOlRtVHFCbfi 1x3LR+uvIGB8fC7EE17yDR/sfEnjE1908-5 12-21T21:30:00 Pt wished to leave AMA. Pt states " yall were wonderful but 3am come real early." 93616-2Vjkstcnrf department TnekKF7002-14-48A85:36:58[facility] NoteTXT1.2.840.796748.1.13.104.2.7. 2.349561|[id number] for patient cqza48282-8CpuyUFKUOAUSYQAGhvqqdfjb C-CDA narrative text[id number] 1ATVHHPFGCLXESJSIZPDPOA5584-70-64A7 1:36:581.2.840.274767.1.72.3.15|1.2 .840.123878.1.13.104.2.7.2.727879_2 [id number] [facility] 2023-12-21 21:26:22 UPhpkJfYruLuhcVF9s3XvAhYgPUZujeCyFA 4AFCoR4lAJz8upf6CYoZO9w4QbDgq2023-2 12-21T21:26:22 Pt asking to go outside and smoke, wants to go home and eat. Pt educated on risks of leaving AMA. Provider informed pt is in pain. 56307-7Rxmwtwmvm department FftbDK2363-47-00M11:33:35[facility] NoteTXT1.2.840.136124.1.13.104.2.7. 2.929421|[id number] for patient oxfu11604-7LddvAOKEODSLCZTCqkrvzlch C-CDA narrative wzxh008063401Rjvbkb R Shehadeh RN[address] ZthjQwhxgjrxbIlumbcwwrAIEW094546811 1CQPZGLOXSYRVARNEBAMBEV9836-06-28S1 1:33:351.2.840.758474.1.72.3.15|1.2 .840.127470.1.13.104.2.7.2.727879_2 [id number] Leah King RN [facility] 2023-12-21 19:31:50 7ux9+8ukDYq9HbopE7zDU1qLLyMYh7lCzjw AmNEzaX7umLdQk2vBvAWx5ac+OYnJ6601-8 12-21T19:31:50 Pt arrived ambulatory with complaints of bright red rectal bleeding and generalized abdominal pain this afternoon. Pt states his stool was normal consistency but continuous bright red blood. Denies this happening before.Pt is an alcoholic, had 2 beer TOGGLER. States he vomits all the time but not something new today. 59955-8Pucdiuexu department Triage jnebPG3526-72-44E30:33:28[facility] Triage noteTXT1.2.840.069431.1.13.104.2.7. 2.789505|[id number] for patient zedh81800-7Vikgoktfc department NoteLNNARRATIVEFormatted C-CDA narrative owwv965349578Klupmj D Roman RN[id number] 7RNPWXUIFHWYQZUCVFCEKVQ1806-31-90A9 9:33:281.2.840.636206.1.72.3.15|1.2 .840.416729.1.13.104.2.7.2.727879_2 [id number] Gabi Esqueda RN [facility] 2023-11-10 20:13:39 psFcrVPDQj6ErqVGRCl9IugZ39b/TlPnCn4 [facility]/ER667tZ2RYdKsTKf2zfvHUblS6321-6 11-10T20:13:39 Pt requesting to leave AMA. ERP notified. Pt counseled to remain, risks of leaving AMA including discussed with pt. Pt continued to decline further ER evaluation at this time. AMA papers signed, witnessed, and placed on patient's chart. Pt left ambulatory. VS stable, no ataxia noted, GCS 15, A&Ox4. 92871-8Ivvifwprm department EjicBP2250-97-16S43:13:52[facility] NoteTXT1.2.840.961555.1.13.104.2.7. 2.787252|[id number] for patient pbko43206-2IibmLATJYCSGQXGZccxwimim C-CDA narrative [id number] Medrano RN[id number] 8PMZPJHOUAUMXRVDMRNPLFJ1394-41-53D5 0:13:521.2.840.425721.1.72.3.15|1.2 .840.782829.1.13.104.2.7.2.727879_1 [id number] Briseida Medrano RN [facility] 2023-11-10 19:30:29 o2Or5/MrY0f1B5tlg+7HHtdmVtxF/EYpEtf SSQSnjK9FSaE/anPn78kSo3XL9u5z2510-0 11-10T19:30:29 Patient arrived to ED c/o SOB and COPD exacerbation. Symptoms started this morning. Patient wears 3L NC at home. Patient is a smoker. Patient states having the chills, diarrhea, and vomiting. States having sharp pains in chest from coughing. 60141-5Vinxfrzhb department Triage gmrrAN1878-79-67K17:35:27[facility] Triage noteTXT1.2.840.331476.1.13.104.2.7. 2.737539|[id number] for patient qxlt52642-0Xaxjrpdwv department NoteLNNARRATIVEFormatted C-CDA narrative avqs656172095Yjlfsl-Ptage McInnis RNUT[address] StreetVafrTost[id number] 6ILSDIPXNVXRCJGSVISBIRR2757-87-59P7 9:35:271.2.840.022055.1.72.3.15|1.2 .840.035859.1.13.104.2.7.2.727879_1 [id number] Sreedhar Gomez RN [facility]
--- NOTE | 2024-02-15 17:55 | RAD REPORT ---
EXAM DESCRIPTION: RAD - Chest Single View - 02/15/2024 5:46 pm CLINICAL HISTORY: DYSPNEA Chest pain. COMPARISON: <Comparisons> FINDINGS: Portable technique limits examination quality. Mild interstitial pulmonary edema possible. The heart is moderately enlarged. No displaced fractures. IMPRESSION: Mild CHF is possible.
[2024-02-15 18:13] LABS: Absolute Lymphocytes (CBC) 0.4 K/uL (0.7-4.9); Absolute Neutrophil 17.8 K/uL (1.8-8.0); Basophils % 0.1 % (0-1.3); Eosinophils % 0.1 % (0-4.4); Hemoglobin 12.1 g/dL (13.6-17.9); Lymphocytes % 2.3 % (15.3-44.8); MCH 32.9 pg (27.0-35.0); MCHC 33.6 g/dL (32.0-36.0); MCV 97.9 fL (80-100); MPV 7.3 fL (7.6-11.3); Monocytes % 5.4 % (3.3-12.3); Neutrophils % 92.1 % (41.7-73.7); Platelets 177 thou/uL (152-406); RBC Red Blood Cell Count 3.68 M/uL (4.33-5.43); Red Cell Distribution Width 15.1 % (12.1-15.2)
--- NOTE | 2024-02-15 18:19 | RAD REPORT ---
EXAM DESCRIPTION: CT - CTHCSPWOC - 02/15/2024 6:06 pm CLINICAL HISTORY: Trauma, head and neck injury. TRAUMA COMPARISON: <Comparisons> TECHNIQUE: Axial 5 mm thick images of the head were obtained. Axial 2 mm thick images of the cervical spine were obtained with sagittal and coronal reconstruction images generated and reviewed. All CT scans are performed using dose optimization technique as appropriate and may include automated exposure control or mA/KV adjustment according to patient size. FINDINGS: CT HEAD WITHOUT CONTRAST: No acute hemorrhage, hydrocephalus or extra-axial collection is identified.No areas of brain edema or midline shift. The paranasal sinuses and mastoids are clear.The calvarium is intact. CT CERVICAL SPINE WITHOUT CONTRAST: No fracture or subluxation.No prevertebral soft tissues swelling is identified. IMPRESSION: No acute intracranial or cervical spine findings.
[2024-02-15 18:34] LABS: Anion Gap 12.5 mEq/L (5.0-15.0); Magnesium 2.5 mg/dL (1.6-2.4); Potassium 3.5 mEq/L (3.5-5.1); Troponin High Sensitivity 3.8 pg/mL (<58.9)
[2024-02-15] MEDS ORDERED: FENTANYL CITR 100 MCG/2 ML ONE (19:00)
--- NOTE | 2024-02-15 19:06 | ER ---
Nurse's Notes [facility] Name: Randy Briones Age: 53 yrs Sex: Male : 1970 Arrival Date: 02/15/2024 Time: 16:52 Bed 6 Private MD: Diagnosis: Fall on same level, unspecified;Unspecified injury of head, initial encounter;COPD/ Chronic obstructive pulmonary disease, unspecified;Leukocytosis Presentation: 02/14 16:59 Chief complaint: Patient states: he got dizzy and fell. denies hitting his head or LOC. kc6 no blood thinners. pt reports neck and left leg pain. BGL en route 110. Coronavirus screen: At this time, the client does not indicate any symptoms associated with coronavirus-19. Ebola Screen: No symptoms or risks identified at this time. Initial Sepsis Screen: Does the patient meet any 2 criteria? No. Patient's initial sepsis screen is negative. Does the patient have a suspected source of infection? No. Patient's initial sepsis screen is negative. Risk Assessment: Do you want to hurt yourself or someone else? Patient reports no desire to harm self or others. Onset of symptoms was February 15, 2024. 16:59 Method Of Arrival: EMS: [facility] kc6 16:59 Acuity: CANDACE 3 kc6 17:00 Care prior to arrival: Cervical collar in place. kc6 Triage Assessment: 17:00 General: Appears in no apparent distress. uncomfortable, well groomed, well developed, kc6 Behavior is calm, cooperative, appropriate for age. Pain: Complains of pain in base of the skull and left leg Pain currently is 10 out of 10 on a pain scale. EENT: No signs and/or symptoms were reported regarding the EENT system. Neuro: Level of Consciousness is awake, alert, obeys commands, Oriented to person, place, time, situation, Appropriate for age. Cardiovascular: Capillary refill < 3 seconds. Respiratory: Airway is patent Trachea midline Respiratory effort is even, unlabored, Respiratory pattern is regular, symmetrical. GI: No signs and/or symptoms were reported involving the gastrointestinal system. : No signs and/or symptoms were reported regarding the genitourinary system. Derm: Skin is healthy with good turgor, has skin tears on right forearm, cover with gauze, dressing is clean, dry, and intact Skin is pink, warm \T\ dry. Musculoskeletal: No signs and/or symptoms reported regarding the musculoskeletal system. Circulation, motion, and sensation intact. Capillary refill < 3 seconds, Range of motion: intact in all extremities. Historical: - Allergies: 17:00 Lisinopril; kc6 - PMHx: 17:00 Alcoholism; COPD; Hepatitis B (Hypertension); home 02 3LNC PRN; Hypertension; kc6 Osteoporosis; - PSHx: 17:00 Amputation of left index finger; kc6 - Immunization history:: Adult Immunizations not up to date. - Infectious Disease History:: Denies. - Social history:: Smoking status: Patient reports the use of cigarette tobacco products, smokes one pack cigarettes per day. Screenin:02 [facility] ED Fall Risk Assessment (Adult) History of falling in the last 3 months, kc6 including since admission Yes- physiologic fall (2 pts) Confusion or Disorientation No (0 pts) Intoxicated or Sedated Yes (3 pts) Impaired Gait Yes (1 pt) Mobility Assist Device Used No (0 pt) Altered Elimination No (0 pt) Score/Fall Risk Level 3 or more points = High Risk. Abuse screen: Denies threats or abuse. Denies injuries from another. Nutritional screening: No deficits noted. Tuberculosis screening: No symptoms or risk factors identified. Assessment: 17:02 Reassessment: please see triage. kc6 19:18 Reassessment: pt left after receiving pain medication dc own iv. bm8 Vital Signs: 16:59 BP 138 / 94; Pulse 88; Resp 16 S; Pulse Ox 100% on R/A; Weight 79.38 kg (R); Height 5 kc6 ft. 4 in. (R); Pain 10/10; 17:00 BP 109 / 91; Pulse 84; Resp 15; Pulse Ox 99% ; iw 18:42 BP 113 / 96; Pulse 85; Resp 16; Pulse Ox 99% ; iw 16:59 Body Mass Index 30.04 (79.38 kg, 162.56 cm) 6 16:59 Pain Scale: Adult [facility] ED Course: 16:54 Patient arrived in ED. iw 16:55 Aren Benson DO is Attending Physician. ms3 16:55 Beatriz Grace FNP is PHCP. ms3 16:58 Manda Samaniego, RN is Primary Nurse. kc6 17:00 Triage completed. kc6 17:00 Arm band placed on. kc6 17:03 Patient has correct armband on for positive identification. Bed in low position. Call kc light in reach. Side rails up X2. Client placed on continuous cardiac and pulse oximetry monitoring. NIBP monitoring applied. Warm blanket given. 17:28 Missed attempt(s): 22 gauge in right antecubital area. Missed attempt(s): 22 gauge in kc6 left antecubital area. Missed attempt(s): 24 gauge in left wrist. 17:47 XRAY Chest (1 view) In Process Unspecified. EDMS 17:56 Initial lab(s) drawn, by me, sent to lab. Inserted saline lock: 22 gauge in left hand, iw using aseptic technique. Blood collected. 18:08 CT Head C Spine In Process Unspecified. EDMS 19:18 Provided Education on: post er care. bm8 19:18 No provider procedures requiring assistance completed. IV discontinued, pt pulled own bm8 iv and left after receiving pain medication. Administered Medications: 19:10 Drug: fentaNYL (PF) IVP 25 mcg IVP once Route: IVP; Site: left hand; bm8 19:18 Follow up: Response: No adverse reaction bm8 Medication: 19:18 VIS not applicable for this client. bm8 Outcome: 19:05 Discharge ordered by . 7 19:18 Discharged to home ambulatory, bm8 19:18 Condition: stable 19:18 Discharge instructions given to patient, Instructed on discharge instructions, follow up and referral plans. Demonstrated understanding of instructions, follow-up care, medications, 19:20 Patient left the ED. bm8 Signatures: Dispatcher [employer] EDMS Rebeca Lizama, RN RN iw Aren Benson DO DO ms3 Beatriz Grace, WIRE PREPARATION MACHINE TENDER WIRE PREPARATION MACHINE TENDER Manda Mccoy, RN RN kc6 Paul Monteiro RN RN bm8
--- NOTE | 2024-02-15 19:06 | EDPHYS ---
Physician Documentation [facility] Name: Randy Briones Age: 53 yrs Sex: Male : 1970 Arrival Date: 02/15/2024 Time: 16:52 Bed 6 Private MD: ED Physician Aren Benson HPI: 02/14 17:00 This 53 yrs old Male presents to ER via EMS with complaints of Neck Pain, <24hrs Old, jh7 Fall Injury. 17:00 53-year-old male with a past medical history of COPD, alcoholism, hypertension, jh7 osteoporosis, and supplemental oxygen dependency presents to the ER post fall. The patient states that he suddenly got dizzy and fell backwards hitting his head. He denies being on blood thinners or LOC. Complains of posterior head and neck pain. He was admitted for observation yesterday afternoon and left AMA before he can get his discharge paperwork. Patient calm and oriented at this time.. Historical: - Allergies: 17:00 Lisinopril; kc6 - PMHx: 17:00 Alcoholism; COPD; Hepatitis B (Hypertension); home 02 3LNC PRN; Hypertension; kc6 Osteoporosis; - PSHx: 17:00 Amputation of left index finger; kc6 - Immunization history:: Adult Immunizations not up to date. - Infectious Disease History:: Denies. - Social history:: Smoking status: Patient reports the use of cigarette tobacco products, smokes one pack cigarettes per day. ROS: 17:00 Constitutional: Negative for fever, chills, and weight loss, Eyes: Negative for injury, jh7 pain, redness, and discharge, Neck: Negative for injury, pain, and swelling, Cardiovascular: Negative for chest pain, palpitations, and edema, Respiratory: Negative for shortness of breath, cough, wheezing, and pleuritic chest pain, Abdomen/GI: Negative for abdominal pain, nausea, vomiting, diarrhea, and constipation, Back: Negative for injury and pain, MS/Extremity: Negative for injury and deformity, Skin: Negative for injury, rash, and discoloration, 17:00 Neck: Positive for pain with movement, bony tenderness, 17:00 Neuro: Positive for dizziness, headache, Negative for numbness, seizure activity, syncope, tingling, visual changes, weakness, 17:00 All other systems are negative, Exam: 17:00 Constitutional: This is a well developed, well nourished patient who is awake, alert, jh7 and in no acute distress. Head/Face: Normocephalic, atraumatic. Eyes: Pupils equal round and reactive to light, extra-ocular motions intact. Lids and lashes normal. Conjunctiva and sclera are non-icteric and not injected. Cornea within normal limits. Periorbital areas with no swelling, redness, or edema. ENT: Nares patent. No nasal discharge, no septal abnormalities noted. Tympanic membranes are normal and external auditory canals are clear. Oropharynx with no redness, swelling, or masses, exudates, or evidence of obstruction, uvula midline. Mucous membranes moist. Chest/axilla: Normal chest wall appearance and motion. Nontender with no deformity. No lesions are appreciated. Cardiovascular: Regular rate and rhythm with a normal S1 and S2. No gallops, murmurs, or rubs. Normal PMI, no JVD. No pulse deficits. Back: No spinal tenderness. No costovertebral tenderness. Full range of motion. 17:00 Neck: External neck: tenderness, that is mild, of the left mid cervical area and right mid cervical area, 17:00 Respiratory: the patient does not display signs of respiratory distress, Respirations: normal, Breath sounds: decreased breath sounds, that are mild, are scattered, 17:00 Musculoskeletal/extremity: ROM: limited active range of motion due to pain, Circulation is intact in all extremities. Pulses: Perfusion: the extremity is normally perfused throughout, pink, warm, with brisk capillary refill, Sensation intact. Left hip/thigh pain secondary to osteoporosis. Patient denies any new injury.. 17:00 Skin: injury, avulsion(s), A moderate sized of the right dorsal forearm, jh7 Vital Signs: 16:59 BP 138 / 94; Pulse 88; Resp 16 S; Pulse Ox 100% on R/A; Weight 79.38 kg (R); Height 5 kc6 ft. 4 in. (R); Pain 10/10; 17:00 BP 109 / 91; Pulse 84; Resp 15; Pulse Ox 99% ; iw 18:42 BP 113 / 96; Pulse 85; Resp 16; Pulse Ox 99% ; iw 16:59 Body Mass Index 30.04 (79.38 kg, 162.56 cm) kc6 16:59 Pain Scale: Adult kc6 Procedures: 18:15 Cervical collar removed, at February 15, 2024 at 18:15. [facility] MDM: 16:55 Patient medically screened. [facility] 19:00 ED course: Radiology informing that the patient declined any x-rays of his pelvis or jh7 lower back even though he states that he fell on his lower back. He stated that he had no new pain, but just wanted IV pain medication for his chronic left leg pain.. 19:05 Differential diagnosis: C-Spine Fracture Cervical Disc Herniation cervical strain, jh7 Closed head injury, syncopal episode, AMI, NSTEMI, COPD exacerbation, pneumonia. Data reviewed: vital signs, nurses notes, lab test result(s), EKG, radiologic studies, CT scan, plain films. Management of patient was discussed with the following: Hospitalist: Leslie Vasquez NP. Consulted due to Leslie being the hospitalist who cared for the patient before he left A prior to discharge. We reviewed chest CT done this morning, recent blood cultures, and labs done today. Leukocytosis is likely explained by chronic steroid use and diagnosis of pneumonitis seen on the CT. Nika stated that the patient had received multiple doses of Rocephin and azithromycin here in the hospital and that she advise discharging him with azithromycin 500 mg once daily for 3 days and Bactrim twice daily for 7 days (to cover for PCP pneumonia since the patient's is HIV positive). I considered the following discharge prescriptions or medication management in the emergency department Medications were administered in the Emergency Department. See MAR. Independent interpretation of the following test(s) in the Emergency Department EKG: See my EKG interpretation above. Historians other than the Patient: EMS: EMS. Care significantly affected by the following chronic conditions: Congestive Heart Failure, Chronic Obstructive Pulmonary Disease. Counseling: I had a detailed discussion with the patient and/or guardian regarding the historical points, exam findings, and any diagnostic results supporting the discharge/admit diagnosis, to return to the emergency department if symptoms worsen or persist or if there are any questions or concerns that arise at home. Response to treatment: the patient's symptoms have mildly improved after treatment. 02/14 16:55 Order name: Basic Metabolic Panel; Complete Time: 18:39 [facility] 02/14 16:55 Order name: CBC with Diff [facility] 02/14 16:55 Order name: Magnesium; Complete Time: 18:39 [facility] 02/14 16:55 Order name: NT PRO-BNP; Complete Time: 18:39 [facility] 02/14 16:55 Order name: Troponin HS; Complete Time: 18:39 [facility] 02/14 16:55 Order name: XRAY Chest (1 view); Complete Time: 18:10 [facility] 02/14 16:55 Order name: CT Head C Spine; Complete Time: 18:20 [facility] 02/14 16:55 Order name: EKG; Complete Time: 16:56 [facility] 02/14 16:55 Order name: Cardiac monitoring; Complete Time: 17:27 [facility] 02/14 16:55 Order name: EKG - Nurse/Tech; Complete Time: 17:27 [facility] 02/14 16:55 Order name: IV Saline Lock; Complete Time: 17:59 [facility] 02/14 16:55 Order name: Labs collected and sent; Complete Time: 18:00 [facility] 02/14 16:55 Order name: O2 Per Protocol; Complete Time: 17:03 [facility] 02/14 16:55 Order name: O2 Sat Monitoring; Complete Time: 17:03 EC:00 Rate is 84 beats/min. Rhythm is regular. QRS [place] is Normal. [place] interval is normal at [facility] 140 msec. QRS interval is normal at 116 msec. QT interval is prolonged at 442 msec. No Q waves. T waves are Normal. No ST changes noted. Clinical impression: Normal sinus rhythm with prolonged QT. Administered Medications: 19:10 Drug: fentaNYL (PF) IVP 25 mcg IVP once Route: IVP; Site: left hand; [facility] 19:18 Follow up: Response: No adverse reaction 8 Disposition: 17:42 I was immediately available on-site in the Emergency Department for consultation in the [facility] [place] of [place]. Disposition Summary: 02/15/24 19:05 Discharge Ordered Notes: Location: Home [facility] Problem: new [facility] Symptoms: are unchanged [facility] Condition: Stable [facility] Diagnosis - Fall on same level, unspecified 7 - Unspecified injury of head, initial encounter 7 - COPD/ Chronic obstructive pulmonary disease, unspecified [facility] - Leukocytosis [facility] Followup: [facility] - With: Private Physician - When: 2 - 3 days - Reason: Recheck today's complaints Discharge Instructions: - Discharge Summary Sheet 7 - Chronic Obstructive Pulmonary Disease jh7 - Head Injury, Adult jh7 - Fall Prevention in the Home, Adult 7 - Pneumonitis [facility] Forms: - Medication Reconciliation Form [facility] - Thank You Letter [facility] - Antibiotic Education [facility] - Patient Portal Instructions [facility] - Leadership Thank You Letter [facility] Prescriptions: - azithromycin 500 mg Oral tablet - take 1 tablet ORAL route daily for 3 days; 3 tablet; Refills: 0, Product jh7 Selection Permitted - Bactrim DS 800-160 mg Oral Tablet - take 1 tablet ORAL route every 12 hours for 7 days; 14 tablet; Refills: 0, jh7 Product Selection Permitted Signatures: Dispatcher [employer] EDMS Aren Benson, DO ms3 Beatriz Grace, HUNTING AND FISHING GUIDE H[employer]TING AND FISHING GUIDE ara7 Manda Samaniego, RN RN kc6 Paul Monteiro, RN RN [id number] Corrections: (The following items were deleted from the chart) 18:56 18:56 Pelvis+RAD.RAD.BRZ ordered. EDMS EDMS 19:09 18:56 Lumbar Spine 3 Views+RAD.RAD.BRZ ordered. EDMS EDMS 19:14 17:00 Skin: Warm, dry with normal turgor. Normal color with no rashes, no lesions, and jh7 no evidence of cellulitis. Neuro: Awake and alert, GCS 15, oriented to person, place, time, and situation. Sensory grossly intact. [facility]
[2024-02-15 19:43] LABS: Blood Morphology Comment NOT SEEN (NOT SEEN); Platelet Estimate ADEQ; White Blood Cell Scan OK (OK)
[2024-02-16 02:21] VITALS: BP 113/96; O2SAT 99
--- NOTE | 2024-02-16 16:17 | EKG ---
Test Date: 2024-02-15 Test Time: 17:08:00 Childcare Teacher: АННА MEASUREMENT RESULTS: Intervals: Rate: 84 AR: 140 QRSD: 116 QT: 442 QTc: 522 [place]: P: 75 AR: 140 QRS: 90 T: 74 INTERPRETIVE STATEMENTS: Normal sinus rhythm Prolonged QT Abnormal ECG Compared to ECG 02/14/2024 11:09:52 Prolonged QT interval now present Sinus tachycardia no longer present Electronically Signed On 02-16-24 16:14:40 CDT by Rosalino Albert
== END 2024-02-15 19:20 | disposition home or self-care (01) ==
LOC: ER 16:52
DX: S09.90XA Unspecified injury of head, initial encounter (principal); D72.829 Elevated white blood cell count, unspecified; J44.9 Chronic obstructive pulmonary disease, unspecified; W18.30XA Fall on same level, unspecified, initial encounter; I10 Essential (primary) hypertension; F10.20 Alcohol dependence, uncomplicated; F17.210 Nicotine dependence, cigarettes, uncomplicated; Z99.81 Dependence on supplemental oxygen; Z88.8 Allergy status to other drugs, medicaments and biological substances
CPT/HCPCS: 93005; 85025; 80048; 36415; 83735; 84484; 83880; 70450; 72125; 71045; 96374; 99284; J3010

== ENCOUNTER 2024-02-16 01:27 | Emergency (ER) | payer OTHER ==
--- OUTSIDE RECORDS SUMMARY | 2024-02-16 01:32 | XMS REPORT | Continuity of Care Document ---
Author Name Unknown Address [address] [facility] [address] [place] [address] [facility] Address [address] [facility] 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 Role Phone Adrianna Michaels Primary Care Physician [phone] KEISHA DAVENPORT Attending Clinician Unav ailable Keisha Davenport MD Attending Clinician + Christina Victoria Attending Clinician [phone] JAC NAVARRO Attending Clinician Unavailable Jac Navarro MD Attending Clinician [phone] TYLER ROWE Attending Clinician Unavailab MELINDA Boothe Attending Clinician Unavailable Melinda Maciel DO Attending Clinician [phone] CHRISTY HOLLIDAY Attending Clinician Unavailable Christy Holliday MD Attending Clinician [phone] DARIEN LOBO Attending Clinician Unavailable MARIA ELENA CHAN [facility]ICAL Attending George akins Unavailable DENISE SUNG Attending Clinician Unavailable KARLEY ADAMS Attending Clinician Unavailable JAC NAVARRO Admitting Clinician Unavailable MELINDA MACIEL Admitting Clinician Unavailable CHRISTY HOLLIDAY Admitting Clinician Unavailable Payers Payer Name Policy Type Policy Number Effective Date Expirati on Date Source [facility] [id number] 2023 00:00:00 2024 00:00:00 [employer] [id number] 2023 00:00:00 [employer] 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: BRANDON O [employer] FEEDER 94 ON 9 [id number] 2023 00:00:00 Problems Condition Name Condition Details Condition Category Status Onset Date Resolution Date Last Treatment Date Treating Clinician Comments Source Acute exacerbati on of chronic obstructiv e pulmonary disease (COPD) Acute exacerbati on of chronic obstructiv e pulmonary disease (COPD) Disease Active 03-24 00:00: 00 [facility] Obesity (BMI 30-39.9) Obesity (BMI 30-39.9) Disease Active 03-24 00:00: 00 [facility] Allergies, Adverse Reactions, Alerts Allergy Name Allergy Type Status Severity Reaction(s) Onset Date Inactive Date Treating Clinician Comments Source Lisinopr il Propensi ty to adverse reaction s Active Anaphylaxis 03-24 00:00: 00 [facility] LISINOPR [place] DRUG INGREDI Active Anaphylaxis 03-24 00:00: 00 [facility] Social History Social Habit Start Date Stop Date Quantity Comments Source History of tobacco use Smokes tobacco daily [facility] function 2024-02-08 00:00:00 2024-02-08 [...] dose, On Thu02/08/24 at 2200, Routine [facility] iopamidol (ISOVUE 370-500 mL) injection 100 mL 02-07 22:30: 00 02-07 22:30 :00 Yes [id number] 100mL 100 mL, Intravenou s, ONCE, 1 dose, On Thu02/08/24 at 1730, Routine [facility] ipratropium -albuteroL (DUONEB) 0.5 mg-3 mg(2.5 mg base)/3 mL nebulizer solution 3 mL 02-07 21:15: 00 02-07 20:45 :00 No 3mL 3 mL, Inhalation , ONCE, 1 dose, On Thu02/08/24 at 1615, Routine [facility] morpHINE (2 mg/mL) injection 4 mg 02-07 21:15: 00 02-07 20:27 :00 No 4mg 4 mg, Slow IV Push, ONCE, 1 dose, On Thu02/08/24 at 1615, STAT [facility] ondansetron (ZOFRAN (PF)) injection 4 mg 02-07 21:15: 00 02-07 20:22 :00 No 4mg 4 mg, Slow IV Push, ONCE, 1 dose, On Thu02/08/24 at 1615, [facility] magnesium sulfate in water 2 gram/50 mL (4 %) infusion 2 g 02-07 21:00: 00 02-07 21:30 :00 No 2g 2 g, IV Piggyback, Administer over 60 Minutes, ONCE, 1 dose, On Thu02/08/24 at 1600, Routine [facility] ipratropium -albuteroL (DUONEB) 0.5 mg-3 mg(2.5 mg base)/3 mL nebulizer solution 3 mL 02-07 20:30: 00 02-07 19:31 :00 No 3mL 3 mL, Inhalation , ONCE, 1 dose, On Thu02/08/24 at 1530, Routine [facility] HYDROcodone -acetaminop hen (NORCO) 10-325 mg tablet 1 tablet 01-13 13:15: 00 01-13 12:15 :00 No 1{tbl} 1 tablet, Oral, ONCE, 1 dose, On Thu01/14/24 at 0715, LAURYN [facility] ipratropium -albuteroL (DUONEB) 0.5 mg-3 mg(2.5 mg base)/3 mL nebulizer solution 3 mL 01-13 13:00: 00 01-13 11:53 :00 No 3mL 3 mL, Inhalation , ONCE NOW, 1 dose, On Thu01/14/24 at 0700[facility]FRAN (PF)) [facility] 4 mg 01-13 11:30: 00 01-13 11:37 :00 No 4mg 4 mg, Slow IV Push, ONCE, 1 dose, On Thu01/14/24 at 0530, [facility] morpHINE (4 mg/mL) injection 4 mg 01-13 11:30: 00 01-13 11:37 :00 No 4mg 4 mg, Slow IV Push, ONCE, 1 dose, On Thu01/14/24 at 0530, STAT [facility] azithromyci n (ZITHROMAX Z-PORTER) 250 mg tablet 01-13 00:00: 00 Yes [id number] Take 500 mg on day 1 then 250 mg on days 2-5 [facility] predniSONE 20 mg tablet 01-13 00:00: 00 Yes [id number] Take 1 po tid x 2 days, then take 1 po bid x 3 days, then take 1 po daily x 3 days. [facility] acetaminoph en-codeine 300-30 mg tablet 01-13 00:00: 00 01-21 04:59 :00 Yes [id number] 1{tbl} Take 1 tablet by mouth every 6 (six) hours as needed for Pain (scale 7-10) (severe cough) for up to 7 days. Indication s: acute pain, severe cough [facility] KCL (KLOR-CON M20) tablet 40 mEq 12-23 05:00: 00 12-23 05:07 :00 No 40meq 40 mEq, Oral, ONCE, 1 dose, On Thu12/22/23 at 2300, [facility] NaCl 0.9% (NS) bolus infusion 1,000 mL 12-23 05:00: 00 12-23 05:09 :00 No 1000mL at 999 mL/hr, 1,000 mL, IV Infusion, ONCE, 1 dose, On Thu12/22/23 at 2300, [facility] ondansetron (ZOFRAN (PF)) injection 4 mg 12-23 04:30: 00 12-23 04:24 :00 No 4mg 4 mg, Slow IV Push, ONCE, 1 dose, On Thu12/22/23 at 2230, [facility] maalox:diph enhydrAMINE :lidocaine 2 % viscous 1:1:1 ([facility]) oral suspension 15 mL 12-23 04:15: 00 12-23 04:17 :00 No 15mL 15 mL, Oral, ONCE, 1 dose, On Thu12/22/23 at 2215, Routine [facility] famotidine (PEPCID (PF)) injection 20 mg 12-23 04:15: 00 12-23 04:15 :00 No 20mg 20 mg, Slow IV Push, ONCE, 1 dose, On Thu12/22/23 at 2215, LAURYN [facility] HYDROcodone -acetaminop hen (NORCO) 10-325 mg tablet 1 tablet 12-22 04:30: 00 12-22 16:29 :00 Yes 1{tbl} 1 tablet, Oral, ONCE, 1 dose, On Thu12/21/23 at 2230, Routine [facility] pantoprazol e (PROTONIX) 80 mg in NaCl 0.9% (NS) 20 mL syringe 12-22 04:15: 00 12-22 16:14 :00 Yes 80mg 80 mg, IV Push, ONCE, 1 dose, On Thu12/21/23 at 2215, Administer over 2 Minutes, 20 mL [facility] iopamidol (ISOVUE 370-500 mL) injection 100 mL 12-22 03:30: 00 12-22 03:30 :00 No [id number] 100mL 100 mL, Intravenou s, ONCE, 1 dose, On Thu12/21/23 at 2130, Routine [facility] morpHINE (4 mg/mL) injection 4 mg 12-22 03:30: 00 12-22 02:16 :00 No 4mg 4 mg, Slow IV Push, ONCE, 1 dose, On Thu12/21/23 at 2130, Routine [facility] ondansetron (ZOFRAN (PF)) injection 4 mg 12-22 02:45: 00 12-22 02:02 :00 No 4mg 4 mg, Slow IV Push, ONCE, 1 dose, On Thu12/21/23 at 2045, Routine [facility] ondansetron 4 mg disintegrat ing tablet 12-22 00:00: 00 Yes [id number] 4mg Take 1 tablet by mouth every 8 (eight) hours as needed for Nausea and Vomiting (N/V). [facility] hydrocortis one 25 mg suppository 12-22 00:00: 00 Yes [id number] 25mg Insert 1 Suppositor y into rectum 2 (two) times daily as needed for Rectal itching/pa in. [facility] amoxicillin -clavulanat e 875-125 mg per tablet 12-22 00:00: 00 01-02 05:59 :00 Yes [id number] 1{tbl} Take 1 tablet by mouth every 12 (twelve) hours for 10 days. [facility] methylpredn isolone sod succ (SOLU-MEDRO L) injection 125 mg 2022-11 08:45: 00 10-27 20:44 :00 No 125mg 125 mg, Slow IV Push, ONCE, 1 dose, On Thu10/27/23 at 0245, STAT [facility] ipratropium -albuteroL (DUONEB) 0.5 mg-3 mg(2.5 mg base)/3 mL nebulizer solution 3 mL 2022-11 08:45: 00 10-27 20:44 :00 No 3mL 3 mL, Inhalation , ONCE NOW, 1 dose, On Thu10/27/23 at 0245, LAURYN [facility] diazePAM (VALIUM) tablet 10 mg 2022-11 07:45: 00 10-27 19:44 :00 No 10mg 10 mg, Oral, ONCE, 1 dose, On Thu10/27/23 at 0145, LAURYN [facility] levoFLOXaci n (LEVAQUIN) tablet 500 mg 2022-11 07:45: 00 10-27 19:44 :00 No 500mg 500 mg, Oral, ONCE, 1 dose, On Thu10/27/23 at 0145, LAURYN
Re ason for Anti-Infec tive: Empiric Non-Surgic al Prophylaxi s
Durat ion of therapy: Once (ED) [facility] iopamidol (ISOVUE 370-500 mL) injection 70 mL 2021-11 18:30: 00 10-14 18:30 :00 No [id number] 70mL 70 mL, Intravenou s, ONCE, 1 dose, On Thu10/14/22 at 1230, Routine [facility] methylpredn isolone sod succ (SOLU-MEDRO L) injection 125 mg 2021-11 18:00: 00 Yes 125mg 125 mg, Intravenou s, Q6H, First dose on Thu10/14/22 at 1200, Until Discontinu ed, Routine [facility] furosemide (LASIX) injection 40 mg 2021-11 17:45: 00 10-14 16:39 :00 No 40mg 40 mg, IV Push, ONCE, 1 dose, On Thu10/14/22 at 1145, LAURYN [facility] ipratropium -albuteroL (DUONEB) 0.5 mg-3 mg(2.5 mg base)/3 mL nebulizer solution 3 mL 2021-11 17:30: 00 10-14 16:41 :00 No 3mL 3 mL, Inhalation , ONCE, 1 dose, On Thu10/14/22 at 1130, Routine [facility] FENTanyl PF (SUBLIMAZE (PF)) injection 50 mcg 2021-11 16:45: 00 10-14 16:39 :00 No 50ug 50 mcg, Slow IV Push, ONCE, 1 dose, On Thu10/14/22 at 1045, Routine [facility] levoFLOXaci n 750 mg tablet 2021-11 00:00: 00 Yes [id number] 750mg Take 1 tablet by mouth every 24 (twenty-fo ur) hours. [facility] HYDROcodone -acetaminop hen (NORCO) 10-325 mg tablet 1 tablet 03-12 12:15: 00 03-12 11:21 :00 No 1{tbl} 1 tablet, Oral, ONCE, 1 dose, On Thu03/12/22 at 0715, Routine [facility] HYDROcodone -acetaminop hen 10-325 mg tablet 03-12 00:00: 00 03-20 04:59 :00 No [id number] 1{tbl} Take 1 tablet by mouth every 6 (six) hours as needed for Pain (scale 7-10) for up to 7 days. Indication s: acute pain [facility] ipratropium -albuteroL (DUONEB) 0.5 mg-3 mg(2.5 mg base)/3 mL nebulizer solution 3 mL 02-20 13:00: 00 Yes 3mL 3 mL, Inhalation , QID, First dose on Thu02/20/22 at 0800, Until Discontinu ed, Routine [facility] methylPREDN ISolone sod succ (SOLU-MEDRO L (PF)) injection 40 mg 02-20 11:45: 00 02-20 10:43 :00 No 40mg 40 mg, Intravenou s, ONCE, 1 dose, On Kym 02/20/22 at 0645, STAT [facility] foLIC acid (FOLATE) tablet 1 mg 02-20 11:45: 00 02-20 10:41 :00 No 1mg 1 mg, Oral, ONCE, 1 dose, On Thu02/20/22 at 0645, LAURYN [facility] thiamine (VITAMIN B1) injection 100 mg 02-20 11:45: 00 02-20 10:43 :00 No 100mg 100 mg, Intravenou s, ONCE, 1 dose, On Kym 02/20/22 at 0645, LAURYN [facility] LORazepam (ATIVAN) injection 2 mg 02-20 11:45: 00 02-20 10:42 :00 No 2mg 2 mg, Slow IV Push, ONCE, 1 dose, On Kym 02/20/22 at 0645, STAT [facility] ipratropium -albuteroL (DUONEB) 0.5 mg-3 mg(2.5 mg base)/3 mL nebulizer solution 3 mL 02-20 10:30: 00 02-20 09:34 :00 No 3mL 3 mL, Inhalation , ONCE, 1 dose, On Kym 02/20/22 at 0530, Routine [facility] albuterol 90 mcg/actuati on inhaler 02-20 00:00: 00 Yes [id number] 2{puff} Inhale 2 Puffs every 4 (four) hours as needed for Wheezing or Shortness of Breath. [facility] albuterol 2.5 mg /3 mL (0.083 %) nebulizer solution 02-20 00:00: 00 Yes [id number] 2.5mg Inhale 3 mL every 4 (four) hours. May also nebulize one extra every 6 hours. [facility] budesonide- formoteroL 160-4.5 mcg/actuati on inhaler 02-20 00:00: 00 Yes [id number] 2{puff} Inhale 2 Puffs 2 (two) times daily. [facility] triamterene -hydrochlor othiazid 37.5-25 mg tablet 02-20 00:00: 00 Yes [id number] 1{tbl} Take 1 tablet by mouth daily. [facility] chlordiazeP OXIDE 25 mg capsule 02-20 00:00: 00 Yes [id number] 25mg Take 1 capsule by mouth every 6 (six) hours as needed for Anxiety, Agitation, Heart Rate => 100 or Detox. [facility] predniSONE 10 mg tablet 02-20 00:00: 00 Yes [id number] TAKE ONE TABLET BY MOUTH DAILY [facility] albuterol 5 mg/mL nebulizer solution 07-16 14:02: 20 Yes 2.5mg Inhale 2.5 mg every 6 (six) hours as needed for Wheezing or Shortness of Breath. [facility] budesonide- formoterol 160-4.5 mcg/actuati on inhaler 07-16 00:00: 00 Yes 2{puff} Inhale 2 Puffs 2 (two) times daily. [facility] albuterol 2.5 mg /3 mL (0.083 %) nebulizer solution 07-16 00:00: 00 Yes 2.5mg Inhale 3 mL every 4 (four) hours as needed for Wheezing or Shortness of Breath. [facility] triamterene -hydrochlor othiazide 37.5-25 mg per capsule 03-26 16:32: 14 Yes 1{capsu le} Take 1 capsule by mouth every morning. [facility] amLODIPine 10 mg tablet 03-26 16:32: 14 Yes 10mg Take 10 mg by mouth at bedtime. [facility] gabapentin 100 mg capsule 03-26 16:32: 14 Yes 100mg Take 100 mg by mouth 2 (two) times daily as needed ([facility] pain). [facility] foLIC acid 1 mg tablet 03-26 16:32: 14 Yes 1mg Take 1 mg by mouth daily. [facility] budesonide- formoterol 160-4.5 mcg/actuati on inhaler 03-26 00:00: 00 Yes 2{puff} Inhale 2 Puffs 2 (two) times daily. [facility] Immunizations Ordered Immunization Name Filled Immunization [...] Center Pneumococcal Polysaccharide, PPSV23 (PNEUMOVAX) Unknown [facility] Influenza Virus Vaccine Quad IM 3+ YRS Unknown Completed [facility] SARS-COV-2 COVID-19 PFIZER VACCINE Unknown Completed [facility] SARS-COV-2 COVID-19 PFIZER VACCINE Unknown Completed [facility] Pneumococcal Polysaccharide, PPSV23 (PNEUMOVAX) Unknown Completed [facility] Influenza Virus Vaccine Quad IM 3+ YRS Unknown Completed [facility] SARS-COV-2 COVID-19 PFIZER VACCINE Unknown Completed [facility] SARS-COV-2 COVID-19 PFIZER VACCINE Unknown Completed [facility] Pneumococcal Polysaccharide, PPSV23 (PNEUMOVAX) Unknown Completed [facility] Influenza Virus Vaccine Quad IM 3+ YRS Unknown Completed [facility] SARS-COV-2 COVID-19 PFIZER VACCINE Unknown Completed [facility] SARS-COV-2 COVID-19 PFIZER VACCINE Unknown Completed [facility] Pneumococcal Polysaccharide, PPSV23 (PNEUMOVAX) Unknown [facility] Influenza Virus Vaccine Quad IM 3+ YRS Unknown Completed [facility] SARS-COV-2 COVID-19 PFIZER VACCINE Unknown Completed [facility] SARS-COV-2 COVID-19 PFIZER VACCINE Unknown Completed [facility] Pneumococcal Polysaccharide, PPSV23 (PNEUMOVAX) Unknown Completed [facility] Influenza Virus Vaccine Quad IM 3+ YRS Unknown Completed [facility] SARS-COV-2 COVID-19 PFIZER VACCINE Unknown Completed [facility] SARS-COV-2 COVID-19 PFIZER VACCINE Unknown Completed [facility] Pneumococcal Polysaccharide, PPSV23 (PNEUMOVAX) Unknown Completed [facility] Influenza Virus Vaccine Quad IM 3+ YRS Unknown Completed [facility] SARS-COV-2 COVID-19 PFIZER VACCINE Unknown Completed [facility] SARS-COV-2 COVID-19 PFIZER VACCINE Unknown Completed [facility] Pneumococcal Polysaccharide, PPSV23 (PNEUMOVAX) Unknown Completed [facility] Influenza Virus Vaccine Quad IM 3+ YRS Unknown Completed [facility] SARS-COV-2 COVID-19 PFIZER VACCINE Unknown Completed [facility] SARS-COV-2 COVID-19 PFIZER VACCINE Unknown Completed [facility] Vital Signs Vital Name Observation Time Observation Value Comments S bernardo Systolic blood pressure 2024-02-09 01:54:05 150 mm[Hg] [facility] Diastolic blood pressure 2024-02-09 01:54:05 91 mm[Hg] [facility] Heart rate 2024-02-09 01:54:05 87 /min [facility] Respiratory rate 2024-02-09 01:54:05 17 /min [facility] Oxygen saturation in Arterial blood by Pulse oximetry 2024-02-09 01:54:05 93 /min [facility] Body temperature 2024-02-09 01:45:00 36.67 Debbie [facility] Body height 2024-02-09 01:45:00 162.6 cm [facility] Body weight 2024-02-09 01:45:00 81.194 kg [facility] BMI 2024-02-09 01:45:00 30.73 kg/m2 [facility] Respiratory rate 2024-02-08 21:00:00 18 /min [facility] Oxygen saturation in Arterial blood by Pulse oximetry 2024-02-08 21:00:00 96 /min [facility] Systolic blood pressure 2024-02-08 20:27:00 164 mm[Hg] [facility] Diastolic blood pressure 2024-02-08 20:27:00 90 mm[Hg] [facility] Heart rate 2024-02-08 20:27:00 83 /[facility] Body temperature 2024-02-08 19:12:00 36.83 Debbie [facility] Body height 2024-02-08 19:12:00 162.6 cm [facility] Body weight 2024-02-08 19:12:00 81.194 kg [facility] BMI 2024-02-08 19:12:00 30.73 kg/m2 [facility] Heart rate 2024-01-14 12:15:00 98 /min [facility] Body temperature 2024-01-14 12:15:00 36.56 Debbie [facility] Respiratory rate 2024-01-14 12:15:00 14 /min [facility] Oxygen saturation in Arterial blood by Pulse oximetry 2024-01-14 12:15:00 95 /min [facility] Systolic blood pressure 2024-01-14 12:00:00 140 mm[Hg] [facility] Diastolic blood pressure 2024-01-14 12:00:00 90 mm[Hg] [facility] Body height 2024-01-14 10:51:00 162.6 cm [facility] Body weight 2024-01-14 10:51:00 81.194 kg [facility] BMI 2024-01-14 10:51:00 30.73 kg/m2 [facility] Systolic blood pressure 2023-12-23 05:02:00 133 mm[Hg] [facility] Diastolic blood pressure 2023-12-23 05:02:00 84 mm[Hg] [facility] Heart rate 2023-12-23 05:02:00 78 /min [facility] Body temperature 2023-12-23 05:02:00 36.17 Debbie [facility] Respiratory rate 2023-12-23 05:02:00 17 /min [facility] Oxygen saturation in Arterial blood by Pulse oximetry 2023-12-23 05:02:00 91 /min [facility] Body height 2023-12-23 03:45:00 162.6 cm [facility] Body weight 2023-12-23 03:45:00 81.194 kg [facility] BMI 2023-12-23 03:45:00 30.73 kg/m2 [facility] Systolic blood pressure 2023-12-22 02:08:00 143 mm[Hg] [facility] Diastolic blood pressure 2023-12-22 02:08:00 92 mm[Hg] [facility] Heart rate 2023-12-22 02:08:00 81 /min [facility] Respiratory rate 2023-12-22 02:08:00 13 /min [facility] Oxygen saturation in Arterial blood by Pulse oximetry 2023-12-22 02:08:00 95 /min [facility] Body temperature 2023-12-22 01:33:00 36.72 Debbie [facility] Body height 2023-12-22 01:33:00 162.6 cm [facility] Body weight 2023-12-22 01:33:00 81.239 kg [facility] BMI 2023-12-22 01:33:00 30.74 kg/m2 [facility] Systolic blood pressure 2023-11-11 02:00:00 127 mm[Hg] [facility] Diastolic blood pressure 2023-11-11 02:00:00 87 mm[Hg] [facility] Heart rate 2023-11-11 02:00:00 79 /min [facility] Respiratory rate 2023-11-11 02:00:00 20 /min [facility] Oxygen saturation in Arterial blood by Pulse oximetry 2023-11-11 02:00:00 98 /min [facility] Body temperature 2023-11-11 01:31:00 36.28 Debbie [facility] Body height 2023-11-11 01:31:00 162.6 cm [facility] Body weight 2023-11-11 01:31:00 79.379 kg [facility] BMI 2023-11-11 01:31:00 30.04 kg/m2 [facility] Systolic blood pressure 2023-10-27 06:54:00 133 mm[Hg] [facility] Diastolic blood pressure 2023-10-27 06:54:00 94 mm[Hg] [facility] Heart rate 2023-10-27 06:54:00 95 /min [facility] Body temperature 2023-10-27 06:54:00 36.44 Debbie [facility] Respiratory rate 2023-10-27 06:54:00 22 /min [facility] Body height 2023-10-27 06:54:00 162.6 cm [facility] Body weight 2023-10-27 06:54:00 78.472 kg [facility] BMI 2023-10-27 06:54:00 29.70 kg/m2 [facility] Oxygen saturation in Arterial blood by Pulse oximetry 2023-10-27 06:54:00 94 /min [facility] Systolic blood pressure 2022-10-14 19:43:00 111 mm[Hg] [facility] Diastolic blood pressure 2022-10-14 19:43:00 74 mm[Hg] [facility] Heart rate 2022-10-14 19:43:00 98 /min [facility] Body temperature 2022-10-14 19:43:00 36.39 Debbie [facility] Respiratory rate 2022-10-14 19:43:00 22 /min [facility] Oxygen saturation in Arterial blood by Pulse oximetry 2022-10-14 19:43:00 94 /min [facility] Body height 2022-10-14 16:13:00 162.6 cm [facility] Body weight 2022-10-14 16:13:00 81.647 kg [facility] BMI 2022-10-14 16:13:00 30.90 kg/m2 [facility] Systolic blood pressure 2022-03-12 10:13:00 119 mm[Hg] [facility] Diastolic blood pressure 2022-03-12 10:13:00 75 mm[Hg] [facility] Heart rate 2022-03-12 10:13:00 105 /min [facility] Body temperature 2022-03-12 10:13:00 37.28 Debbie [facility] Respiratory rate 2022-03-12 10:13:00 19 /min [facility] Body height 2022-03-12 10:13:00 162.6 cm [facility] Body weight 2022-03-12 10:13:00 99.791 kg [facility] BMI 2022-03-12 10:13:00 37.76 kg/m2 [facility] Oxygen saturation in Arterial blood by Pulse oximetry 2022-03-12 10:13:00 96 /min [facility] Systolic blood pressure 2022-02-20 11:57:00 155 mm[Hg] [facility] Diastolic blood pressure 2022-02-20 11:57:00 88 mm[Hg] [facility] Heart rate 2022-02-20 11:57:00 105 /min [facility] Respiratory rate 2022-02-20 11:57:00 18 /min [facility] Oxygen saturation in Arterial blood by Pulse oximetry 2022-02-20 11:57:00 100 /min [facility] Body temperature 2022-02-20 09:25:00 37 Debbie [facility] Body height 2022-02-20 09:25:00 162.6 cm [facility] Body weight 2022-02-20 09:25:00 96.163 kg [facility] BMI 2022-02-20 09:25:00 36.39 kg/m2 [facility] Procedures Procedure Date / Time Performed Performing Clinician Source AC PANEL 20 + LACTIC ACID 2024-02-08 20:47:00 Christina Villarreal [facility] XR CHEST 1 VW 2024-02-08 19:47:00 Christina Villarreal [facility] URINALYSIS 2024-02-08 19:36:00 [facility] MAGNESIUM 2024-02-08 19:25:00 [facility] TROPONIN I 2024-02-08 19:25:00 [facility] COMP. METABOLIC PANEL ([id number]) 2024-02-08 19:25:00 Christina Villarreal [facility] ETHANOL 2024-02-08 19:25:00 [facility] CBC WITH DIFF 2024-02-08 19:25:00 Christina Villarreal [facility] N-TERMINAL PRO-BNP 2024-02-08 19:25:00 Christina Villarreal [facility] EKG-12 LEAD 2024-01-14 12:00:51 Jac Navarro [facility] LIPASE 2024-01-14 11:11:00 Jac Navarro [facility] TROPONIN I 2024-01-14 11:11:00 Jac Navarro [facility] COMP. METABOLIC PANEL ([id number]) 2024-01-14 11:11:00 Jac Navarro [facility] ETHANOL 2024-01-14 11:11:00 Jac Navarro [facility] CBC WITH DIFF 2024-01-14 11:11:00 [facility] N-TERMINAL PRO-BNP 2024-01-14 11:11:00 Jac Navarro [facility] COVID-19 (ID NOW RAPID TESTING) 2024-01-14 11:11:00 Jac Navarro [facility] CONSENT/REFUSAL FOR DIAGNOSIS AND TREATMENT 2024-01-14 10:44:32 Doctor Unassigned, [place] [facility] LIPASE 2023-12-23 04:17:00 Tyler Rowe Un [facility] COMP. METABOLIC PANEL ([id number]) 2023-12-23 04:17:00 Tyler Rowe [facility] CBC WITH DIFF 2023-12-23 04:17:00 [facility] 2023-12-23 04:17:00 Tyler Rowe Un [facility] CONSENT/REFUSAL FOR DIAGNOSIS AND TREATMENT 2023-12-23 03:40:32 Doctor Unassigned, [place] [facility] CT ABDOMEN PELVIS W CONTRAST 2023-12-22 02:31:05 Melinda Maciel [facility] LIPASE 2023-12-22 01:58:00 Melinda Maciel [facility] COMP. METABOLIC PANEL ([id number]) 2023-12-22 01:58:00 Melinda Maciel [facility] ETHANOL 2023-12-22 01:58:00 [facility] CBC WITH DIFF 2023-12-22 01:58:00 Singer [facility] PROTHROMBIN TIME / INR 2023-12-22 01:58:00 Wali Maciel [facility] URINALYSIS 2023-12-22 01:58:00 [facility] CONSENT/REFUSAL FOR DIAGNOSIS AND TREATMENT 2023-12-22 01:19:14 Doctor Unassigned, [place] [facility] NOTICE OF PRIVACY PRACTICES 2023-11-11 01:24:24 Doctor Unassigned, [place] [facility] CONSENT/REFUSAL FOR DIAGNOSIS AND TREATMENT 2023-11-11 01:23:54 Doctor Unassigned, [place] [facility] COVID-19 (ID NOW RAPID TESTING) 2023-10-27 07:09:00 Jac Navarro [facility] NOTICE OF PRIVACY PRACTICES 2023-10-27 06:49:48 Doctor Unassigned, [place] [facility] CONSENT/REFUSAL FOR DIAGNOSIS AND TREATMENT 2023-10-27 06:47:40 Doctor Unassigned, [place] [facility] CT ABDOMEN PELVIS W CONTRAST 2022-10-14 17:33:00 Singer [facility] XR CHEST 1 VW 2022-10-14 17:10:37 Singer [facility] TROPONIN I 2022-10-14 16:37:00 [facility] COMP. METABOLIC PANEL ([id number]) 2022-10-14 16:37:00 Singer [facility] CBC WITH DIFF 2022-10-14 16:37:00 Singer [facility] PROTHROMBIN TIME / INR 2022-10-14 16:37:00 Wali Maciel [facility] URINALYSIS 2022-10-14 16:37:00 [facility] N-TERMINAL PRO-BNP 2022-10-14 16:37:00 Maciel, Melinda [facility] CONSENT/REFUSAL FOR DIAGNOSIS AND TREATMENT 2022-10-14 15:56:36 Doctor Unassigned, [place] [facility] CONSENT/REFUSAL FOR DIAGNOSIS AND TREATMENT 2022-03-12 10:03:12 Doctor Unassigned, [place] [facility] XR CHEST 1 VW 2022-02-20 09:59:00 Christy Holliday [facility] LIPASE 2022-02-20 09:30:00 Christy Holliday [facility] TROPONIN I 2022-02-20 09:30:00 Christy Holliday [facility] COMP. METABOLIC PANEL ([id number]) 2022-02-20 09:30:00 Christy Holliday [facility] CBC WITH DIFF 2022-02-20 09:30:00 Christy Holliday [facility] N-TERMINAL PRO-BNP 2022-02-20 09:30:00 Christy Holliday [facility] NOTICE OF PRIVACY PRACTICES 2022-02-20 09:15:02 Doctor Unassigned, [place] [facility] CONSENT/REFUSAL FOR DIAGNOSIS AND TREATMENT 2022-02-20 09:14:47 Doctor Unassigned, [place] [facility] Encounters Start Date/Time End Date/Time Encounter Type Admission Type Attending [facility] Facility Care Department Encounter ID Source 2024-02-08 20:38:00 2024-02-08 21:40:00 Emergency X KEISHA DAVENPORT [facility] ERT [id number] [facility] 2024-02-08 20:38:00 2024-02-08 21:40:00 Emergency Keisha Davenport [facility] 1.2.840.114 350.1.13.10 4.2.7.2.686 [id number] 084 [id number] [facility] 2024-02-08 14:08:00 2024-02-08 17:06:00 Emergency Christina Villarreal [facility] 1.2.840.114 350.1.13.10 4.2.7.2.686 [id number] 084 [id number] [facility] 2024-01-14 04:46:00 2024-01-14 06:23:00 Emergency X JAC NAVARRO [facility] ERT [id number] [facility] 2024-01-14 04:46:00 2024-01-14 06:23:00 Emergency Jac Navarro [facility] 1.2.840.114 350.1.13.10 4.2.7.2.686 [id number] 084 [id number] [facility] 2023-12-22 21:51:00 2023-12-22 23:13:00 Emergency X TYLER ROWE [facility] ERT [id number] [facility] 2023-12-22 21:51:00 2023-12-22 23:13:00 [facility].114 350.1.13.10 4.2.7.2.686 [id number] 084 [id number] [facility] 2023-12-21 19:36:00 2023-12-21 21:52:00 Emergency X MELINDA MACIEL [facility] ERT [id number] [facility] 2023-12-21 19:36:00 2023-12-21 21:52:00 Emergency Melinda Maciel [facility] 1.2.840.114 350.1.13.10 4.2.7.2.686 [id number] 084 [id number] [facility] 2023-11-10 19:29:00 2023-11-10 20:14:00 Emergency X CHRISTY HOLLIDAY [facility] ERT [id number] [facility] 2023-11-10 19:29:00 2023-11-10 20:14:00 Emergency Christy Holliday [facility] 1.2.840.114 350.1.13.10 4.2.7.2.686 [id number] 084 [id number] [facility] 2023-10-27 00:49:00 2023-10-27 01:41:00 Emergency X JAC NAVARRO [facility] ERT [id number] [facility] 2023-10-27 00:49:00 2023-10-27 01:41:00 Emergency Jac Navarro [facility] 1..840.114 350.1.13.10 4.2.7.2.686 [id number] [id number] [facility] 2023-07-15 00:00:00 2023-07-15 00:00:00 Outpatient DARIEN LOBO [id number] [facility] 2023-06-16 11:30:00 2023-06-16 11:30:00 Outpatient DARIEN LOBO [id number] [facility] 2023-05-18 00:00:00 2023-05-18 00:00:00 Outpatient MARIA ELENA CHAN [id number] [facility] 2022-10-14 10:07:00 2022-10-14 14:39:00 Emergency Christen SINGER MELINDA [facility] ERT [id number] [facility] 2022-10-14 10:07:00 2022-10-14 14:39:00 Emergency Melinda Maciel [facility] 1..840.114 350.1.13.10 4.2.7.2.686 [id number] 084 [id number] [facility] 2022-03-12 05:15:00 2022-03-12 06:41:00 Emergency X CHRISTY HOLLIDAY [facility] ERT [id number] [facility] 2022-03-12 05:15:00 2022-03-12 06:41:00 Emergency Christy Holliday [facility] ..840.114 350.1.13.10 4.2.7.2.686 [id number] 084 [id number] [facility] 2022-02-20 04:17:00 2022-02-20 07:16:00 Emergency X CHRISTY HOLLIDAY [facility] ERT [id number] [facility] 2022-02-20 04:17:00 2022-02-20 07:16:00 Emergency Christy Holliday [facility] 1.2.840.114 350.1.13.10 4.2.7.2.686 [id number] 084 [id number] [facility] 2021-02-03 11:10:00 2021-02-03 11:10:00 Outpatient R DENISE SUNG [facility] [id number] [facility] 2021-01-13 11:20:00 2021-01-13 11:20:00 Outpatient [facility] [id number] [facility] 2020-11-10 08:20:00 2020-11-10 08:20:00 Outpatient KARLEY ESTRADA [facility] [id number] [facility] Results Test Description Test Time Test Comments Results Result Co mments Source [facility] + Lactic [id number] 20:52:47* Test Item Value Reference Range Interpretation Comme nts PH (test code = 2) 7.39 7.35-7.45 PCO2 (test code = 4553942197) 42 35-45 PO2 (test code = 7681454524) 76 80-100 L HCO3 (test code = 6311354255) 25 22-26 BE (test code = 1032442004) -0.1 -3.0-3.0 THB (test code = 0923901245) 14.3 g/dL 13.5-18.0 %O2HB (test code = 9845731809) 85.8 % 94.0-99.0 L %COHB ART (test code = 0077217294) 9.0 % 0.0-1.5 H %METHB ART (test code = 4539164147) 0.3 % 0.4-1.5 L VOL%O2 ART (test code = 5837119268) 17.3 % 15.0-23.0 NA (test code = 5688550307) 140 mmol/L 135-145 K+ (test code = 5001026812) 4.1 mmol/L 3.5-5.0 AC CA IONZ (test code = 0357677052) 4.50 mg/dL 4.50-5.30 GLUCOSE (test code = 9887416112) 105 mg/dL 70-110 LACTIC ACID (test code = 0067983571) 2.60 mmol/L 0.50-2.20 H Lab Interpretation (test cod e = 38343-9) Abnormal [facility] Center[facility] [id number] 20:34:14* Test Item Value Reference Range Interpretation Comme nts TROPONIN I (test code = 1773454121) 0.008 ng/mL <=0.034 LOUISE (test code = [...] of biotin. Lab Interpretation (test code = 06780-3) Normal [facility] Yvl-Umo1079-54-01 20:31:35* Test Item Value Reference Range Interpretation Comme nts NT-proBNP (test code = 19639-1) 188 pg/mL <=125 LOUISE (test code = LOUISE) Result Indeterminate-Consid er causes of NT-proBNP elevation other than Heart failure such as acute coronary syndrome, pulmonary embolism, pulmonary hypertension, sepsis, stroke, and renal dysfunction. Lab Interpretation (test code = 28890-4) Abnormal [facility] Met[facility] Panel (56836)2024-02-08 20:21:10* Test Item Value Reference Range Interpretation Comme nts NA (test code = 0924813215) 135 mmol/L 135-145 K (test code = 0873321840) 4.5 mmol/L 3.5-5.0 CL (test code = 4041240146) 100 mmol/L 98-108 CO2 TOTAL (test code = 1192166124) 22 mmol/L 23-31 L AGAP (test code = 7973210385) 13 2-16 BUN (test code = 7819348625) 8 mg/dL 7-23 GLUCOSE (test code = 0097080825) 97 mg/dL 70-110 CREATININE (test code = 2160-0) 0.65 mg/dL 0.60-1.25 TOTAL BILI (test code = 9293299244) 0.4 mg/dL 0.1-1.1 CALCIUM (test code = 8512108720) 9.4 mg/dL 8.6-10.6 T PROTEIN (test code = 9062446999) 8.2 g/dL 6.3-8.2 ALBUMIN (test code = 1439254913) 4.7 g/dL 3.5-5.0 ALK PHOS (test code = 8230621971) 76 U/L 34-122 ALTv (test code = 1742-6) 33 U/L 5-50 AST(SGOT) (test code = 2745646028) 54 U/L 13-40 H eGFR (test code = 90432-8) 111.3 mL/min/1.73m2 CKD-EPI eGFR (2020). Assuming creatinine has been stable day-to-day for at least three months, the eGFR indicates Category G1 (>= 90 mL/min/1.73 m2) Lab Interpretation (test code = 27649-2) Abnormal [facility] CenterMagnesium2024-04-01 20:21:10* Test Item Value Reference Range Interpretation Comme nts MAGNESIUM (test code = 7110878182) 2.1 mg/dL 1.7-2.4 Lab Interpretation (test cod e = 95823-1) Normal [facility] CHEST 1 [id number] 20:07:21EXAM: XR CHEST 1 VW COMPARISON: 01/14/2024 HISTORY: sob FINDINGS: Lungs: Slightly hyperexpanded lungswith subtle progression of interstitialprominence. Trace pleural effusions could be present. Heart/Mediastinum: Stable cardiomegaly. Bones and soft tissues: No osseous abnormality is visualized.[facility] Cbc with [id number] 20:04:26* Test Item Value Reference Range Interpretation [...] 33.8 g/dL 31.2-35.0 RDW-SD (test code = 78216-3) 50.5 fL 38.5-51.6 RDW-CV (test code = 788-0) 14.3 % 12.1-15.4 PLT (test code = 777-3) 206 150-328 MPV (test code = 28266-9) 9.1 fL 9.8-13.0 L NRBC/100 WBC (test code = 2105820199) 0.0 0.0-10.0 NRBC x10^3 (test code = 6189067792) See_Comment [Automated messa ge] The system which generated this result transmitted reference range: 10*3/?L. The reference range was not used to interpret this result as normal/abnormal. GRAN MAT (NEUT) % (test code = 770-8) 81.0 % IMM GRAN % (test code = 9690121698) 1.20 % LYMPH % (test code = 736-9) 10.9 % MONO % (test code = 5905-5) 6.8 % EOS % (test code = 713-8) 0.0 % BASO % (test code = 706-2) 0.1 % GRAN MAT x10^3(ANC) (test code = 8687041828) 9.31 10*3/uL 1.99-6.95 H IMM GRAN x10^3 (test code = 2256256155) 0.14 10*3/uL 0.00-0.06 H LYMPH x10^3 (test code = 731-0) 1.25 10*3/uL 1.09-3.23 MONO x10^3 (test code = 742-7) 0.78 10*3/uL 0.36-1.02 EOS x10^3 (test code = 711-2) 0.06-0.53 L BASO x10^3 (test code = 704-7) 0.01-0.09 Lab Interpretation (test code = 28118-0) Abnormal [facility] Center[facility]. METABOLIC PANEL (83586)2023-12-23 04:53:26* Test Item Value Reference Range Interpretation Comme nts NA (test code = 8093905311) 135 mmol/L 135-145 K (test code = 5131308662) 3.2 mmol/L 3.5-5.0 L CL (test code = 3406981606) 104 mmol/L 98-108 CO2 TOTAL (test code = 7462701982) 23 mmol/L 23-31 AGAP (test code = 7582066227) 8 2-16 BUN (test code = 7772016049) 11 mg/dL 7-23 GLUCOSE (test code = 9936820006) 82 mg/dL 70-110 CREATININE (test code = 2160-0) 0.64 mg/dL 0.60-1.25 TOTAL BILI (test code = 4754807812) 0.5 mg/dL 0.1-1.1 CALCIUM (test code = 0868067221) 8.8 mg/dL 8.6-10.6 T PROTEIN (test code = 6100823711) 6.7 g/dL 6.3-8.2 ALBUMIN (test code = 6507156146) 4.1 g/dL 3.5-5.0 ALK PHOS (test code = 9919636965) 46 U/L 34-122 ALTv (test code = 1742-6) 21 U/L 5-50 AST(SGOT) (test code = 4493051960) 43 U/L 13-40 H eGFR (test code = 35465-3) 111.8 mL/min/1.73m2 CKD-EPI eGFR (2020). Assuming creatinine has been stable day-to-day for at least three months, the eGFR indicates Category G1 (>= 90 mL/min/1.73 m2) Lab Interpretation (test code = 60249-5) Abnormal [facility] CenterLIPASE2024-02-14 04:53:26* Test Item Value Reference Range Interpretation Comme nts LIPASE (test code = 3799121444) 105 U/L 0-220 Lab Interpretation (test cod e = 78668-1) Normal [facility] CenterCBC WITH [id number] 04:34:24* Test Item Value Reference Range Interpretation [...] 33.0 g/dL 31.2-35.0 RDW-SD (test code = 56010-6) 50.9 fL 38.5-51.6 RDW-CV (test code = 788-0) 13.7 % 12.1-15.4 PLT (test code = 777-3) 232 150-328 MPV (test code = 93755-5) 8.7 fL 9.8-13.0 L NRBC/100 WBC (test code = 6287495177) 0.0 0.0-10.0 NRBC x10^3 (test code = 4546953586) See_Comment [Automated [employer]eeipa ge] The system which generated this result transmitted reference range: 10*3/?L. The reference range was not used to interpret this result as normal/abnormal. GRAN MAT (NEUT) % (test code = 770-8) 58.8 % IMM GRAN % (test code = 2420823620) 0.90 % LYMPH % (test code = 736-9) 27.8 % MONO % (test code = 5905-5) 10.5 % EOS % (test code = 713-8) 1.3 % BASO % (test code = 706-2) 0.7 % GRAN MAT x10^3(ANC) (test code = 4614964212) 5.68 10*3/uL 1.99-6.95 IMM GRAN x10^3 (test code = 1321152556) 0.09 10*3/uL 0.00-0.06 H LYMPH x10^3 (test code = 731-0) 2.69 10*3/uL 1.09-3.23 MONO x10^3 (test code = 742-7) 1.02 10*3/uL 0.36-1.02 EOS x10^3 (test code = 711-2) 0.13 10*3/uL 0.06-0.53 BASO x10^3 (test code = 704-7) 0.07 10*3/uL 0.01-0.09 Lab Interpretation (test code = 53514-8) Abnormal [facility] W [id number] 03:32:43Exam: CT Abdomen and Pelvis With Contrast, [...] Interpretation Comme nts ALCOHOL (test code = 5062517246) 117 mg/dL LOUISE (test code = LOUISE) <10 Yjbrjylc97-990 Toxic>100 Depression of HARNESSMAKER>400 Fatalities Reported [facility] CenterComp. Metabolic Panel (59503)2023-12-22 02:31:43* Test Item Value Reference Range Interpretation Comme nts NA (test code = 3675273336) 133 mmol/L 135-145 L K (test code = 1925592849) 3.3 mmol/L 3.5-5.0 L CL (test code = 7713481016) 102 mmol/L 98-108 CO2 TOTAL (test code = 0469564643) 25 mmol/L 23-31 AGAP (test code = 9272468186) 6 2-16 BUN (test code = 8648198171) 11 mg/dL 7-23 GLUCOSE (test code = 4145293293) 75 mg/dL 70-110 CREATININE (test code = 4561170074) 0.51 mg/dL 0.60-1.25 L TOTAL BILI (test code = 4051258567) 0.5 mg/dL 0.1-1.1 CALCIUM (test code = 6755257581) 8.9 mg/dL 8.6-10.6 T PROTEIN (test code = 7487987892) 7.2 g/dL 6.3-8.2 ALBUMIN (test code = 7902181391) 4.5 g/dL 3.5-5.0 ALK PHOS (test code = 4333903889) 46 U/L 34-122 ALTv (test code = 1742-6) 15 U/L 5-50 AST(SGOT) (test code = 4437568553) 24 U/L 13-40 eGFR (test code = 02878-4) 119.7 mL/min/1.73m2 CKD-EPI eGFR (2020). Assuming creatinine has been stable day-to-day for at least three months, the eGFR indicates Category G1 (>= 90 mL/min/1.73 m2) Lab Interpretation (test code = 82238-6) Abnormal [facility] CenterLipase2024-02-13 02:31:43* Test Item Value Reference Range Interpretation Comme nts LIPASE (test code = 1815418928) 121 U/L 0-220 Lab Interpretation (test cod e = 69564-9) Normal [facility] CenterProthrombin Time / [id number] 02:21:02* Test Item Value Reference Range Interpretation Comme nts PROTIME PATIENT (test code = 5964-2) 10.5 10.1-12.6 INR (test code = 6301-6) 0.9 Normal INR <1.1; Warfarin Therapeutic range 2.0 to 3.0 or 2.5 to 3.5, depending upon the indications. Lab Interpretation (test code = 96010-7) Normal [facility] CenterCbc with [id number] 02:14:04* Test Item Value Reference Range Interpretation [...] 34.0 g/dL 31.2-35.0 RDW-SD (test code = 30509-3) 49.1 fL 38.5-51.6 RDW-CV (test code = 788-0) 13.5 % 12.1-15.4 PLT (test code = 777-3) 260 150-328 MPV (test code = 94666-0) 8.7 fL 9.8-13.0 L NRBC/100 WBC (test code = 0916369795) 0.0 0.0-10.0 NRBC x10^3 (test code = 4567591530) See_Comment [Automated messa ge] The system which generated this result transmitted reference range: 10*3/?L. The reference range was not used to interpret this result as normal/abnormal. GRAN MAT (NEUT) % (test code = 770-8) 64.3 % IMM GRAN % (test code = 8930107454) 0.90 % LYMPH % (test code = 736-9) 24.2 % MONO % (test code = 5905-5) 9.1 % EOS % (test code = 713-8) 0.7 % BASO % (test code = 706-2) 0.8 % GRAN MAT x10^3(ANC) (test code = 5156864272) 8.73 10*3/uL 1.99-6.95 H IMM GRAN x10^3 (test code = 6972518441) 0.12 10*3/uL 0.00-0.06 H LYMPH x10^3 (test code = 731-0) 3.28 10*3/uL 1.09-3.23 H MONO x10^3 (test code = 742-7) 1.23 10*3/uL 0.36-1.02 H EOS x10^3 (test code = 711-2) 0.10 10*3/uL 0.06-0.53 BASO x10^3 (test code = 704-7) 0.11 10*3/uL 0.01-0.09 H Lab Interpretation (test code = 30110-5) [facility] [id number] 10:16:22* Test Item Value Reference Range Interpretation Comments TROPONIN I (test code = 7643995835) 0.007 ng/mL See_Comment [Automated message] The system [...] of biotin. Lab Interpretation (test code = 82107-6) Normal [facility] CenterN-TERMINAL [id number] 10:13:01* Test Item Value Reference Range Interpretation Comme nts NT-proBNP (test code = 5566071073) 52 pg/mL See_Comment [Automated message] The system which generated this result transmitted reference range: <=125. The reference range was not used to interpret this result as normal/abnormal. LOUISE (test code = LOUISE) Biotin has been reported to cause a negative bias, interpret results relative to patient's use of biotin. Lab Interpretation (test code = 35495-6) [facility] (98764)2022-02-20 10:04:02* Test Item Value Reference Range Interpretation Comme nts NA (test code = 6780786600) 137 mmol/L 135-145 K (test code = 8773481694) 3.6 mmol/L 3.5-5.0 CL (test code = 6696623489) 99 mmol/L 98-108 CO2 TOTAL (test code = 5916018019) 25 mmol/L 23-31 AGAP (test code = 1587013322) 2-16 BUN (test code = 1727523276) 6 mg/dL 7-23 L GLUCOSE (test code = 4729426749) 88 mg/dL 70-110 CREATININE (test code = 8904214223) 0.55 mg/dL 0.60-1.25 L TOTAL BILI (test code = 4970055637) 0.8 mg/dL 0.1-1.1 CALCIUM (test code = 0933901723) 8.9 mg/dL 8.6-10.6 T PROTEIN (test code = 7168253115) 7.5 g/dL 6.3-8.2 ALBUMIN (test code = 7736788204) 4.8 g/dL 3.5-5.0 ALK PHOS (test code = 8902615278) 113 U/L 34-122 ALTv (test code = 1742-6) 84 U/L 5-50 H AST(SGOT) (test code = 5863287624) 107 U/L 13-40 H eGFR (test code = 1512246863) mL/min/1.73m2 LOUISE (test code = LOUISE) Association [...] imaging tests). Lab Interpretation (test code = 50937-0) Abnormal [facility] CenterLIPASE, [id number] 10:03:21* Test Item Value Reference Range Interpretation Comme nts LIPASE (test code = 5656370509) 193 U/L 0-220 Lab Interpretation (test cod e = 27376-2) Normal [facility] CenterCB WITH [id number] 09:39:17* Test Item Value Reference Range Interpretation Comme nts WBC (test code = 6690-2) See_Comment [Automated [employer]] The system which generated this result transmitted [...] g/dL 31.2-35.0 H RDW-SD (test code = 36091-2) 44.4 fL 38.5-51.6 RDW-CV (test code = 788-0) 11.9 % 12.1-15.4 L PLT (test code = 777-3) See_Comment [Automated Veeipa ge] The system which generated this result transmitted reference range: 150 - 328 10*3/?L. The reference range was not used to interpret this result as normal/abnormal. MPV (test code = 92686-7) 9.2 fL 9.8-13.0 L NRBC/100 WBC (test code = 1208002354) See_Comment [Automated [employer]] The system which generated this result transmitted reference range: 0.0 - 10.0 /100 WBCs. The reference range was not used to interpret this result as normal/abnormal. NRBC x10^3 (test code = 4347725640) <0.01 See_Comment [Automated messa ge] The system which generated this result transmitted reference range: 10*3/?L. The reference range was not used to interpret this result as normal/abnormal. GRAN MAT (NEUT) % (test code = 770-8) 69.9 % IMM GRAN % (test code = 2777341647) 1.50 % LYMPH % (test code = 736-9) 18.9 % MONO % (test code = 5905-5) 7.0 % EOS % (test code = 713-8) 1.9 % BASO % (test code = 706-2) 0.8 % GRAN MAT x10^3(ANC) (test code = 5542091129) 7.15 10*3/uL 1.99-6.95 H IMM GRAN x10^3 (test code = 9033253760) 0.15 10*3/uL 0.00-0.06 H LYMPH x10^3 (test code = 731-0) 1.93 10*3/uL 1.09-3.23 MONO x10^3 (test code = 742-7) 0.72 10*3/uL 0.36-1.02 EOS x10^3 (test code = 711-2) 0.19 10*3/uL 0.06-0.53 BASO x10^3 (test code = 704-7) 0.08 10*3/uL 0.01-0.09 Lab Interpretation (test code = 91677-1) Abnormal [facility] Notes Date/Time Note Provider Source 2024-02-08 21:37:56 BFuxKlEG97ygh6ynwbSfxnB56C+ZlkfFHgJ le/WRm2EP6VEMQ1+V70V+vj6T3+wt7670-8 02-07T21:37:56 Pt left AMA 05361-2Vnmqunphg department SpchRB9322-05-79Z65:38:11Emergency department NoteTXT1.2.840.353001.1.13.104.2.7. 2.555576|[id number] for patient umlx07594-3YparZSFOHCQKBRSOlexjocwg C-CDA narrative [id number] Foster [facility] [address] Bz[id number] 7VLYLYAEIYPHSHWIJWRHQDM3892-56-03P3 1:38:111.2.840.277180.1.72.3.15|1.2 .840.565601.1.13.104.2.7.2.727879_2 [id number] Kylie Foster RN [facility] 2024-02-08 21:32:00 E325wSlgSE/AoGQbbAVUivigakVNWP8IfeX 9g/J14JeMlAibQT8YlUMNIRD8d0qI2259-8 02-07T21:32:00 Patient leaving AMA after self removing [...] ambulatory with steady gait, appears in NAD 07762-3Vlcojfnhm department XdyzEH0440-87-46L09:40:32[facility] NoteTXT1.2.840.795108.1.13.104.2.7. 2.315954|2418819594BDZbkawhgox for patient xfbp27584-9KywuYJHDWOPYFUAWbsqkkznn C-CDA narrative [address] Om[id number] 9ZTTLZCPNEBMVISCHOTDFOY9533-51-25I4 1:40:321.2.840.628022.1.72.3.15|1.2 .840.815175.1.13.104.2.7.2.727879_2 [id number] [facility] 2024-02-08 20:54:38 cB92PmN+pT7Ft4uN8nhEJyBv/bCPCdxwEFA EarPprsDRyiuXHRMLoh2Zs4Rn5Cyz0143-1 02-07T20:54:38 Pt states he uses O2 at home, portable O2 is broken 36834-9Utnplejcq department BzfnSY1661-62-12D16:55:13[facility] NoteTXT1.2.840.015570.1.13.104.2.7. 2.993412|[id number] for patient odvu26231-2NthiNVIJBBEMWUSSjehnbwzn C-CDA narrative [id number] 4SLWDICYRZCLMIXNWHCJXZS5136-87-94A9 0:55:131.2.840.165658.1.72.3.15|1.2 .840.410263.1.13.104.2.7.2.727879_2 [id number] [facility] 2024-02-08 20:51:11 el/w2YTNZ+wJpcDycDnvbErz23BM/x7DhYW 98cyYq1tYe5tjbhS3xhYhRy+53hHf5413-8 02-07T20:51:11 Pt ambulates with cane [address]-2Vyspmdmpw department FytsSW1086-83-95G69:51:26[facility] department NoteTXT1.2.840.337031.1.13.104.2.7. 2.567833|[id number] for patient pjin62480-5AoacSWGKUHCIKFKMbtnyyhqk C-CDA narrative [id number] 5WJLHRGOHIJZABAMSADPSPV7275-95-48V5 0:51:261.2.840.273975.1.72.3.15|1.2 .840.282345.1.13.104.2.7.2.727879_2 [id number] [facility] 2024-02-08 20:43:13 5WfqewcdEQkGkOVNsE492oE/9GbsgI+2tFK wSCRRa/jxCVb/9ffxnwQNTmp/gDSd7730-9 02-07T20:43:13 CC: Pt arrives SOB after leaving FAITH earlier in the shift. He reports he [...] 3 BC powders and drank 3 beers." 37264-4Vsdjkvspv department Triage ltvtXN6821-07-56K73:48:36[facility] Triage noteTXT1.2.840.745970.1.13.104.2.7. 2.144830|[id number] for patient qkyr77052-9Jdvfaokfe department NoteLNNARRATIVEFormatted C-CDA narrative [id number] [address] CgezVhbwtthisLnyjfdnogVNVP602526721 3VQZDCMUFSQJFCTLVVWEVQL1329-48-39Z1 0:48:361.2.840.477057.1.72.3.15|1.2 .840.431716.1.13.104.2.7.2.727879_2 [id number] Leah King RN [facility] 2024-02-08 17:04:05 k2Bjmoo+rQg5WbMURTlLNCVmaOjTO3rn8E+ vXQOnp/Gafi/Mj7EoDl4LFXu7UlIr0009-7 7:04:05 Patient walked to the nurses station and stated "I have another emergency and I have to leave right now. I need this IV taken out immediately."Encouraged patient to stay and he stated "I have to leave immediately and I don't want to take this out myself" IV d/c at this time and patient ambulated out of the department with a steady gait. 61312-5Iartopgjy department KnnvFV7772-69-91H59:05:22[facility] NoteTXT1.2.840.110823.1.13.104.2.7. 2.194018|[id number] for patient eppz73051-2NlojEAYDGMDAQDENcqmzgcrl C-CDA narrative [id number] M Hayes RNUT[address] Tqzr[id number] 1JJHFLYOKZYMQDPJGTSKTSG9502-83-74C8 7:05:221.2.840.980843.1.72.3.15|1.2 .840.649793.1.13.104.2.7.2.727879_2 [id number] Allison Zhang RN [facility] 2024-02-08 14:23:02 fotinvAmtmTduChM6y5pvTd9lY2Y/Z3pRfm uswrhKjDYJwQ/yAqKprHb3GxHbeEf9629-5 4:23:02 Pt ambulates with a cane 80223-5Vxyevqkdw department HlunCB3894-06-17W12:23:12[facility] NoteTXT1.2.840.098530.1.13.104.2.7. 2.280390|[id number] for patient ygsy61286-9FlsyAKDULIXPHTSBldokqfku C-CDA narrative [id number] M Cristian MACHUCA[address] StreetQl[id number] 0TIYPTYNKUZSBLMJVIAJVFI5946-06-79B4 4:23:121.2.840.937421.1.72.3.15|1.2 .840.838659.1.13.104.2.7.2.727879_2 [id number] Kylie Carter Cristian MACHUCA [facility] 2024-02-08 14:13:15 F9v564/05TfOB8Zq8ofsnysEcvQNfOaIajq WEczfmSI4YJ7J9BxCRe0KDoniOYGf5092-1 4:13:15 Pt has taken 8-packets of BC [...] only thing that helps." Face is flushed. 55361-9Msgdevwgy department Triage ddcxAB1610-91-34I28:17:26[facility] Triage noteTXT1.2.840.774702.1.13.104.2.7. 2.905736|[id number] for patient foed21770-6Chybgezyj department NoteLNNARRATIVEFormatted C-CDA narrative [id number] Fief RNUT[id number] 2ADMVNILGVOFQVKBQNMVZQB1124-71-79E4 4:17:261.2.840.036770.1.72.3.15|1.2 .840.543081.1.13.104.2.7.2.727879_2 [id number] Hali Aviles RN [facility] 2024-01-14 06:16:25 1Lri8OzzFh3Wc8t4rqDWNhr1Fj1M/FhSiR0 EK1jYS8mazsbErf+wYpV7rAcafeBk5942-6 06:16:25 Pt given printed and verbal discharge [...] w/d, pt leaving in no apparent distress, 62025-1Tzhhjkrxb department LxfeFU1038-54-26X98:17:20[facility] NoteTXT1.2.840.041964.1.13.104.2.7. 2.274579|[id number] for patient jntd22294-2MnhmNZQVLLAJNDKIzuygonjb C-CDA narrative text[address] Xs[id number] 4ZFBILMBDCQOZIXAIDCCMKE9411-52-90G8 6:17:201.2.840.978525.1.72.3.15|1.2 .840.304229.1.13.104.2.7.2.727879_2 [id number] [facility] 2024-01-14 04:49:43 a5GUturRDCsVy4b0euU7TTCnty6Vj+E0JFo 9r8RX8dLl7tmtMMlbBncWd7yxOcFc1890-8 04:49:43 CC: "My COPD is acting up [...] ext without difficulty, amb with steady gait 44148-2Ohotqvzrs department Triage qnuvSA6012-70-12P87:55:49[facility] Triage noteTXT1.2.840.206746.1.13.104.2.7. 2.936629|[id number] for patient meci54023-7Qubovoera department NoteLNNARRATIVEFormatted C-CDA narrative [id number] R Shehadeh RN[address] Paqy[id number] 2EGVEFFHDQZKSWUHLGHKJYC9819-19-04T6 4:55:491.2.840.900326.1.72.3.15|1.2 .840.810307.1.13.104.2.7.2.727879_2 [id number] Leah King RN [facility] 2024-01-14 04:43:00 Mne63tayD3avBVqYexRwb0v7PwUooa3B2uc djsmrB+6rbm6KhalqihVf67iZg0o/07T04:43:00Associated Order(s): EKG-12 Lead ROUTINE ONCEPre-Procedure Diagnose(s): Chest pain, unspecified typePost-Procedure Diagnose(s): Chest pain, unspecified type [facility] Emergency Department NotePatient Name: Randy Edwards of : 1970 53 year old maleTreatment Room: ME1/SM9Ttvvksw Record Number: [id number] Care Physician: Adrianna King Escorted by: Family [5]Mode of Arrival: Personal means [1]EMS Treatment Prior to ED Arrival:[employer]S MANAGER treatment: NTGPTA treatment comments: 0.4 mg SL 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 METABOLIC PANEL (85393) - AbnormalResult Value Ref RangeNA 138 135 [...] 49 (*) 13 - 40 U/LeGFR 93.3 mL/min/1.00l4LDV WITH DIFF - AbnormalWBC 11.59 (*) 4.20 [...] 220 U/LCOVID-19 (ID NOW RAPID TESTING) - RpgqwtCPML-HcV-8 Rapid ID NOW Not Detected Not DetectedETHANOLALCOHOL 62 mg/dLEKG:If EKG completed, see Procedure Note.Orders and Treatments:Orders Placed This EncounterProcedures XR CHEST 1 VW TROPONIN I COMP. METABOLIC PANEL (74723) LIPASE, SERUM CBC WITH DIFF N-Terminal Pro-Bnp Ethanol COVID-19 (ID NOW TESTING) Lab Only COVID Interpretation O2 Per ProtocolOrders Placed This EncounterMedications morpHINE (4 mg/mL) injection 4 mg ondansetron (ZOFRAN (PF)) injection 4 mg ipratropium-albuteroL (DUONEB) 0.5 mg-3 mg(2.5 mg base)/3 mL nebulizer solution 3 mLFirst Provider Eval:ED EventsDate/Time Event User Nwsjvbzl37/07/24 0510 Medical Screening Begins JAC NAVARRO MD --01/14/24 0510 First Provider Evaluation JAC NAVARRO MD --ED COURSEDiagnosis/Impression as of 01/14/24 0605Chest pain, unspecified typeBronchitisProcedures:EKG-12 Lead ROUTINE ONCEDate/Time: 01/14/2024 5:24 AMPerformed by: Jac Navarro MDAuthorized by: Jac Navarro MDECYovani interpreted by ED Physician in the absence of a chemical plant manager: yesPrevious ECG:Previous ECG: Compared to currentSimilarity: No [...] on fileFollow-up:Electronically signed by:Jac Navarro MD01/14/24 0600 75310-7Snlhtqkan Emergency department CceoAT2450-30-50O00:00:50Physician Emergency department NoteTXT1.2.840.651260.1.13.104.2.7. 2.605576|[id number] for patient omrj28860-5Vljvnwzxx department NoteLNNARRATIVEFormatted C-CDA narrative text[address] Am[id number] 1LPDKZECWPXRDYFUAMSSGPX4504-14-43J3 6:00:501.2.840.823376.1.72.3.15|1.2 .840.491259.1.13.104.2.7.2.727879_2 [id number] [facility] 2023-12-22 23:12:16 OfR1+mgYfcHueH8JOeKM3qzRTul9UlLKeA2 wHQnZjjwpTWAzEaAf44s4FiDiq4mI3076-1 12-22T23:12:16 Pt given printed and verbal discharge [...] with steady gait, in no apparent distress, 12540-2Trdtlahic department WolfGZ3454-25-68O47:13:50[facility] NoteTXT1.2.840.459566.1.13.104.2.7. 2.018202|[id number] for patient ghtc21207-0BcopKXEMECRKTKDRvzstjnic C-CDA narrative ogpf031212369DvczoMary Magaña RN[address] Ow[id number] 7JSBEVOJFSWCXJNOQXCMXIY1399-50-46V9 3:13:501.2.840.421581.1.72.3.15|1.2 .840.388498.1.13.104.2.7.2.727879_2 [id number] Mary Magaña RN [facility] 2023-12-22 21:41:55 hAGnF2UkuY32KiPamvvtrIIoELBAFMxeJIs mGGVOHovmoySmdQqmn6s+8+AWQ2R93789-8 12-22T21:41:55 Pt arrives ambulatory to ED reporting bleeding with stools and 10/10 abdominal pain. States he was here last night but had to leave before receiving results d/t having to work. Says the pain became worse so he came back in. 06363-3Rrcoeoogk department Triage utziJN0353-59-31L49:48:52[facility] Triage noteTXT1.2.840.280074.1.13.104.2.7. 2.777639|[id number] for patient pnmt59945-4Lwbgtfijy department NoteLNNARRATIVEFormatted C-CDA narrative vqaz017441800Wqalrx L Williams RN[address] DbdjU[id number] 1WRXYYQPGKHBREYIXTJJDCP0321-09-36T4 1:48:521.2.840.700352.1.72.3.15|1.2 .840.773489.1.13.104.2.7.2.727879_2 [id number] Leah Lizama RN [facility] 2023-12-21 21:31:00 Ad4QeBnHN+s7FgX1tL/KB9T8Dvor25Hk3p3 11zog+TKdQTRUT9G+zjy1Bm5c2e9K1444-4 12-21T21:31:00 Patient leaving AMA,discussed risks of leaving against medical advice, Dr. Maciel aware and notified of patient's decision.Patient encouraged to seek medical attention for any new/prolonged/worsening of symptoms and stressed importance of follow up with a medical provider as soon as possible. AMA form explained, patient signed form.IV d'cd, dressing to site.Patient leaving ambulatory with steady gait, appears in no distress. 75596-1Llapfonje department LokqBN4779-35-70D38:38:39[facility] NoteTXT1.2.840.429382.1.13.104.2.7. 2.899265|[id number] for patient miht04086-4EtuwPAOLODSMIKBEpykyeuox C-CDA narrative ykjo669407972VxlfmMary Magaña RN[id number] 1ODEFNPZJNKDSLDIVFGFDCT9003-02-71L8 1:38:391.2.840.550214.1.72.3.15|1.2 .840.225619.1.13.104.2.7.2.727879_2 [id number] Mary Magaña RN [facility] 2023-12-21 21:30:00 5Pw6Kf+EhdT2ZNX80khjdCyyBiSpUXWKhln 1x3LR+zqJUE9sT9CC76jOG/ohGaxT8389-9 12-21T21:30:00 Pt wished to leave AMA. Pt states " yall were wonderful but 3am come real early." 15238-1Mipqiochz department KgkxHX5370-51-47I50:36:58[facility] NoteTXT1.2.840.270344.1.13.104.2.7. 2.036777|[id number] for patient ksvt22790-8FsxtHENATOEQYBMSoejyodox C-CDA narrative text[id number] 2RHEWYEYBRLSVWJMGSROZQK0449-17-35Z3 1:36:581.2.840.259468.1.72.3.15|1.2 .840.290054.1.13.104.2.7.2.727879_2 [id number] [facility] 2023-12-21 21:26:22 RGvvxCqAomCatrXZ7w1DaDiOpHWLrqrKyDU 6BDIhT8rVSx5rly7NByHH2r6CtHwk8318-6 12-21T21:26:22 Pt asking to go outside and smoke, wants to go home and eat. Pt educated on risks of leaving AMA. Provider informed pt is in pain. 94623-8Qkvqelmqa department DnlzLS0030-74-26W10:33:35[facility] NoteTXT1.2.840.428473.1.13.104.2.7. 2.231442|[id number] for patient mxko44848-7IejwGLOHFYRAQHUZtmybtzgd C-CDA narrative [id number] R Shehadeh RNUT[address] GyvjXesdfqwxqArimwfimdBZWR346490015 0PQLXXCZPNWJDSCBTZINDXX5776-73-65G6 1:33:351.2.840.193876.1.72.3.15|1.2 .840.434206.1.13.104.2.7.2.727879_2 [id number] Leah King RN [facility] 2023-12-21 19:31:50 7ux9+1bsTJb1AnqrH2pTP5dKOoHJf7uSttz BrSYdzC8vvWtSm7sRcUTk9gk+COhK5142-8 12-21T19:31:50 Pt arrived ambulatory with complaints of bright red rectal bleeding and generalized abdominal pain this afternoon. Pt states his stool was normal consistency but continuous bright red blood. 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 States he vomits all the time but not something new today. 69511-8Pecczpmaq department Triage kwgsPV7481-49-22I06:33:28[facility] Triage noteTXT1.2.840.241338.1.13.104.2.7. 2.158578|[id number] for patient nmip84562-2Aslhajnta department NoteLNNARRATIVEFormatted C-CDA narrative jkex866701763Webjtt D Roman RN[id number] 7BMUHLXZHCBRKXDXVMIRVPK0674-15-72E3 9:33:281.2.840.796206.1.72.3.15|1.2 .840.226551.1.13.104.2.7.2.727879_2 [id number] Gabi Esqueda RN [facility] 2023-11-10 20:13:39 upVyiPLZPg3GlfCHUKr6MwrT83j/TlPnCn4 [facility]/KQ282nM9TUqVpSZw4kgjRJbqE1806-5 11-10T20:13:39 Pt requesting to leave AMA. ERP notified. Pt counseled to remain, risks of leaving AMA including discussed with pt. Pt continued to decline further ER evaluation at this time. AMA papers signed, witnessed, and placed on patient's chart. Pt left ambulatory. VS stable, no ataxia noted, GCS 15, A&Ox4. 03915-6Pexowfmjg department XankGF6748-80-45O89:13:52[facility] department NoteTXT1.2.840.254124.1.13.104.2.7. 2.160933|[id number] for patient gxqg38855-7VohaPWPBMRUGGLSMcmfxxuoz C-CDA narrative ldyf104618329ErexmoBriseida Medrano RN[address]QsfpA[id number] 1GEPTLZZTTFZDYABTBONGRH4164-60-19J3 0:13:521.2.840.789709.1.72.3.15|1.2 .840.398780.1.13.104.2.7.2.727879_1 [id number] Briseida Medrano RN [facility] 2023-11-10 19:30:29 o2Or5/JoM6s7Y3avp+7HHtdmVtxF/EYpEtf TEJGohH9XXoO/eeSa42eQd8TI2w8j5771-1 11-10T19:30:29 Patient arrived to ED c/o SOB and COPD exacerbation. Symptoms started this morning. Patient wears 3L NC at home. Patient is a smoker. Patient states having the chills, diarrhea, and vomiting. States having sharp pains in chest from coughing. 67102-9Lccvalpmy department Triage gfyaGK9585-61-54P79:35:27[facility] Triage noteTXT1.2.840.441473.1.13.104.2.7. 2.694726|[id number] for patient ahza91044-2Ygnrygyxn department NoteLNNARRATIVEFormatted C-CDA narrative [id number]-Mxkam McInnis RNUT[address] Vc[id number] 2JQDGTDZASVGFRJYYWNSJOD9145-23-04K1 9:35:271.2.840.245582.1.72.3.15|1.2 .840.629502.1.13.104.2.7.2.727879_1 [id number] Sreedhar Gomez RN [facility]
[2024-02-16 01:48] LABS: Arterial Blood Carboxyhemoglob 6.8 % (0-1.5); Blood Gas Oxyhemoglobin 89.9 % (94-97); Blood Gas THB 12.7 g/dl (12-18); Blood O2 Saturation 98.5 % (92-98.5)
[2024-02-16] MEDS ORDERED: METHYLPREDNISOLONE 125 MG INJ ONE (02:25)
[2024-02-16] MEDS ORDERED: IPRATROPIUM BROM 0.5MG/2.5ML ONE (02:25)
[2024-02-16] MEDS ORDERED: LORazepam 2 MG/ML VIAL ONE (02:26)
[2024-02-16] MEDS ORDERED: ONDANSETRON 4 MG/2 ML VIAL ONE (02:26)
[2024-02-16] MEDS ORDERED: KETOROLAC 30 MG/ML INJ ONE (02:33)
[2024-02-16 02:55] LABS: Absolute Lymphocytes (CBC) 0.9 K/uL (0.7-4.9); Absolute Monocytes 0.8 K/uL (0.1-1.3); Basophils % 0.2 % (0-1.3); Eosinophils % 0.1 % (0-4.4); Hematocrit 35.2 % (39.6-49.0); Lymphocytes % 5.7 % (15.3-44.8); MCH 33.3 pg (27.0-35.0); MCV 97.8 fL (80-100); MPV 7.4 fL (7.6-11.3); Monocytes % 5.2 % (3.3-12.3); Neutrophils % 88.8 % (41.7-73.7); Nucleated Red Blood Cells % 0.1 % (0-0); Platelets 209 thou/uL (152-406); Red Cell Distribution Width 15.1 % (12.1-15.2)
[2024-02-16 02:59] LABS: PTT, Activated Partial Thromb 29.3 SECONDS (24.3-36.9); Protime INR 0.91
[2024-02-16 03:10] LABS: Albumin 3.1 g/dL (3.4-5.0); Albumin/Globulin Ratio 0.8 (1.1-1.8); Anion Gap 9.4 mEq/L (5.0-15.0); Bilirubin Direct 0.1 mg/dL (0-0.2); Bilirubin Indirect, Calculated 0.3 mg/dL (0.2-0.8); Bilirubin Total 0.4 mg/dL (0.2-1.0); Globulin 3.8 g/dL (2.3-3.5); Magnesium 2.3 mg/dL (1.6-2.4); Potassium 3.4 mEq/L (3.5-5.1); Protein, Total 6.9 g/dL (6.4-8.2); Troponin High Sensitivity 3.4 pg/mL (<58.9)
--- NOTE | 2024-02-16 03:42 | ER ---
Nurse's Notes [facility] Name: Randy Briones Age: 53 yrs Sex: Male : 1970 Arrival Date: 02/16/2024 Time: 01:27 Bed 6 Private MD: Diagnosis: COPD/ Chronic obstructive pulmonary disease with (acute) exacerbation Presentation: 02/15 01:29 Chief complaint: EMS states: toned out for SOB starting at 2330 yesterday with chronic km8 chest pain. Coronavirus screen: Client denies travel out of the [place] in the last 14 days. Ebola Screen: No symptoms or risks identified at this time. Initial Sepsis Screen: Does the patient meet any 2 criteria? RR > 20 per min. HR > 90 bpm. Yes Does the patient have a suspected source of infection? No. Patient's initial sepsis screen is negative. Risk Assessment: Do you want to hurt yourself or someone else? Patient reports no desire to harm self or others. Onset of symptoms was February 15, 2024 at 23:30. 01:29 Method Of Arrival: EMS: [facility] km8 01:29 Acuity: CANDACE 2 km8 Triage Assessment: 01:29 General: Appears uncomfortable, Behavior is cooperative, appropriate for age. Pain: km8 Complains of pain in chest and left hip Pain currently is 10 out of 10 on a pain scale. Pain began years ago. EENT: No signs and/or symptoms were reported regarding the EENT system. Neuro: Level of Consciousness is awake, alert, obeys commands, Oriented to person, place, time, situation. Cardiovascular: Reports chest pain, shortness of breath, Patient's skin is warm and dry. Rhythm is sinus tachycardia Chest pain is described as diffuse, is located in anterior chest wall began chronic, years ago episodes are continuous. Respiratory: Reports shortness of breath Airway is patent Respiratory effort is even, unlabored, Respiratory pattern is regular, symmetrical, Onset: The symptoms/episode began/occurred gradually, the patient has moderate shortness of breath. GI: No signs and/or symptoms were reported involving the gastrointestinal system. : No signs and/or symptoms were reported regarding the genitourinary system. Derm: No signs and/or symptoms reported regarding the dermatologic system. Skin is intact, is healthy with good turgor, Skin is dry, Skin is pink, warm \T\ dry. normal, Skin temperature is warm. Musculoskeletal: Range of motion: intact in all extremities. Historical: - Allergies: 01:37 Lisinopril; km8 - PMHx: 01:37 Alcoholism; COPD; Hepatitis B (Hypertension); home 02 3LNC PRN; Hypertension; km8 Osteoporosis; - PSHx: 01:37 Amputation of left index finger; km8 - Immunization history:: Adult Immunizations. - Infectious Disease History:: Denies. - Social history:: Smoking status: Patient reports the use of cigarette tobacco products, smokes 1.5 packs per day, Patient uses alcohol, claims drinking about a 6 pack/day. Patient/guardian denies using street drugs. - Family history:: not pertinent. Screenin:29 [facility] ED Fall Risk Assessment (Adult) History of falling in the last 3 months, 8 including since admission No falls in past 3 months (0 pts) Confusion or Disorientation No (0 pts) Intoxicated or Sedated No (0 pts) Impaired Gait No (0 pts) Mobility Assist Device Used No (0 pt) Altered Elimination No (0 pt) Score/Fall Risk Level 0 - 2 = Low Risk Oriented to surroundings, Maintained a safe environment, Educated pt \T\ family on fall prevention, incl call for assistance when getting out of bed, Assessed \T\ reinforced patient's understanding of fall precautions. Abuse screen: Denies threats or abuse. Denies injuries from another. Nutritional screening: No deficits noted. Tuberculosis screening: No symptoms or risk factors identified. Assessment: :29 Reassessment: see triage assessment/notes. [facility] 03:14 Reassessment: Patient appears in no apparent distress at this time. No changes from [facility] previously documented assessment. Patient and/or family updated on plan of care and expected duration. Pain level reassessed. Patient is alert, oriented x 3, equal unlabored respirations, skin warm/dry/pink. 03:40 Reassessment: pt requesting to leave; Dr. Crews notified. [facility] Vital Signs: :29 BP 111 / 72; Pulse 94; Resp 22; Temp 98.8(TE); Pulse Ox 100% on Nebulizer Mask; Weight [facility] 79.38 kg (R); Height 5 ft. 4 in. (R); Pain 10/10; 02:00 BP 120 / 77; Pulse 95; Resp 20; Pulse Ox 100% on Nebulizer Mask; km8 02:30 BP 132 / 63; Pulse 88; Resp 18; Pulse Ox 99% on Nebulizer Mask; km8 03:00 BP 119 / 65; Pulse 80; Resp 18; Pulse Ox 100% on Nebulizer Mask; km8 01:29 Body Mass Index 30.04 (79.38 kg, 162.56 cm) km8 01:29 Pain Scale: Adult km8 Shani Coma Score: 01:29 Eye Response: spontaneous(4). Motor Response: obeys commands(6). Verbal Response: km8 oriented(5). Total: 15. ED Course: 01:28 Patient arrived in ED. rv1 01:28 Mary Valenzuela, BRIGETTE is Primary Nurse. km8 01:29 Arm band placed on right wrist. km8 01:29 Patient has correct armband on for positive identification. Bed in low position. Call km8 light in reach. Side rails up X 1. Pulse ox on. NIBP on. 01:29 Oxygen administered via a nebulizer mask. km8 01:30 Triage completed. km8 01:33 Jose Crews MD is Attending Physician. sp4 01:56 XRAY CXR (1 view) In Process Unspecified. EDMS 01:59 Missed attempt(s): 22 gauge in left antecubital area. Bleeding controlled, band aid km8 applied, catheter tip intact. 03:44 No provider procedures requiring assistance completed. km8 03:44 IV discontinued, intact, bleeding controlled, No redness/swelling at site. Pressure km8 dressing applied. 03:45 Provided Education on: d/c teaching. km8 Administered Medications: 02:30 Drug: Ipratropium Inhalation Aerosol 0.5 mg Inhalation once; Every 20 min for a total km8 of 3 treatments x3 Route: Inhalation; 02:35 Drug: MethylPrednisoLONE IVP 125 mg IVP once Route: IVP; Site: left upper arm; km8 03:46 Follow up: Response: No adverse reaction km8 02:35 Drug: Ativan IVP 1 mg IVP once Route: IVP; Site: left upper arm; km8 03:46 Follow up: Response: No adverse reaction km8 02:35 Drug: Ondansetron IVP 4 mg IVP once; over 2 minutes Route: IVP; Site: left upper arm; km8 03:46 Follow up: Response: No adverse reaction km8 02:39 Drug: Ketorolac IVP 30 mg IVP once Route: IVP; Site: left upper arm; km8 03:46 Follow up: Response: No adverse reaction km8 02:50 Drug: Ipratropium Inhalation Aerosol 0.5 mg Inhalation once; Every 20 min for a total km8 of 3 treatments x3 Route: Inhalation; 03:10 Drug: Ipratropium Inhalation Aerosol 0.5 mg Inhalation once; Every 20 min for a total km8 of 3 treatments x3 Route: Inhalation; 03:46 Not Given (Duplicate Order): ipratropiumaerosol 0.5 mg Inhalation once; Every 20 min km8 for a total of 3 treatments x3 Medication: 01:29 VIS not applicable for this client. km8 Outcome: 03:41 Discharge ordered by MD. monae 03:45 Discharged to home ambulatory, km8 03:45 Condition: improved 03:45 Discharge instructions given to patient, Instructed on discharge instructions, follow up and referral plans. Demonstrated understanding of instructions, follow-up care, 03:47 Patient left the ED. km8 Signatures: Dispatcher [employer] Sherin Vila rv1 Jose Crews MD MD sp4 Mary Valenzuela RN RN km8
--- NOTE | 2024-02-16 03:42 | EDPHYS ---
Physician Documentation [facility] Name: Randy Briones Age: 53 yrs Sex: Male : 1970 Arrival Date: 02/16/2024 Time: 01:27 Bed 6 Private MD: ED Physician Jose Crews HPI: 02/15 01:36 This 53 yrs old Male presents to ER via EMS with complaints of dyspnea, sp4 intoxication . 07:23 53-year-old male with history of alcoholism and COPD presents with EMS for acute sp4 worsening shortness of breath. Nebulized albuterol ongoing on arrival. Historical: - Allergies: 01:37 Lisinopril; km8 - PMHx: 01:37 Alcoholism; COPD; Hepatitis B (Hypertension); home 02 3LNC PRN; Hypertension; km8 Osteoporosis; - PSHx: 01:37 Amputation of left index finger; km8 - Immunization history:: Adult Immunizations. - Infectious Disease History:: Denies. - Social history:: Smoking status: Patient reports the use of cigarette tobacco products, smokes 1.5 packs per day, Patient uses alcohol, claims drinking about a 6 pack/day. Patient/guardian denies using street drugs. - Family history:: not pertinent. ROS: 07:23 Constitutional: Negative for fever, chills, and weight loss, positive shortness of sp4 breath, positive intoxication, positive chronic hip pain on the left 07:23 All other systems are negative, Exam: 07:23 Constitutional: This is a well developed, well nourished patient who is awake, alert, sp4 positive for acute dyspnea, positive facial plethora, positive moderate intoxication, Head/Face: Normocephalic, atraumatic. Eyes: Pupils equal round and reactive to light, extra-ocular motions intact. Lids and lashes normal. Conjunctiva and sclera are not injected. Cornea within normal limits. Periorbital areas with no swelling, redness, or edema. ENT: Nares patent. No nasal discharge, no septal abnormalities noted. Tympanic membranes are normal and external auditory canals are clear. Oropharynx with no redness, swelling, or masses, exudates, or evidence of obstruction, uvula midline. Mucous membranes moist. Neck: Trachea midline, no thyromegaly or masses palpated, and no cervical lymphadenopathy. Supple, full range of motion without nuchal rigidity, or vertebral point tenderness. Chest/axilla: Normal chest wall appearance and motion. Nontender with no deformity. No lesions are appreciated. Cardiovascular: Regular rate and rhythm with a normal S1 and S2. No gallops, murmurs, or rubs. Normal PMI, no JVD. No pulse deficits. Respiratory: Lungs have equal breath sounds bilaterally, clear to auscultation and percussion. No rales, rhonchi , positive diffuse expiratory wheezes. no increased work of breathing, no retractions or nasal flaring. Abdomen/GI: Soft, with normal bowel sounds. No distension or tympany. No guarding or rebound. No evidence of tenderness throughout. Back: No spinal tenderness. No costovertebral tenderness. Skin: Warm, dry with normal turgor. Normal color with no rashes, no lesions, and no evidence of cellulitis. MS/ Extremity: Pulses equal, no cyanosis. Neurovascular intact. Full, normal range of motion. Neuro: Awake and alert, GCS 15, oriented to person, place, time, and situation. Cranial nerves II-XII grossly intact. Motor strength 5/5 in all extremities. Sensory grossly intact. Psych: Awake, alert, with orientation to person, place and time. Behavior, mood, and affect are within normal limits 07:23 ECG was reviewed by the Attending Physician. EKG time 0 216 Vital Signs: 01:29 BP 111 / 72; Pulse 94; Resp 22; Temp 98.8(TE); Pulse Ox 100% on Nebulizer Mask; Weight 8 79.38 kg (R); Height 5 ft. 4 in. (R); Pain 10/10; 02:00 BP 120 / 77; Pulse 95; Resp 20; Pulse Ox 100% on Nebulizer Mask; 8 02:30 BP 132 / 63; Pulse 88; Resp 18; Pulse Ox 99% on Nebulizer Mask; [facility] 03:00 BP 119 / 65; Pulse 80; Resp 18; Pulse Ox 100% on Nebulizer Mask; 8 01:29 Body Mass Index 30.04 (79.38 kg, 162.56 cm) [facility] 01:29 Pain Scale: Adult [facility] Shani Coma Score: 01:29 Eye Response: spontaneous(4). Motor Response: obeys commands(6). Verbal Response: km8 oriented(5). Total: 15. MDM: 01:36 Patient medically screened. sp4 07:25 Differential Diagnosis altered mental status, sepsis, flu. Data reviewed: vital signs, sp4 nurses notes, EMS record, old medical records, lab test result(s), EKG, radiologic studies. ED course: Patient felt improved after management in the ER and was discharged home in improved condition. . 07:26 Consideration of Admission/Observation Escalation of care including sp4 admission/observation considered. ED course: CLINICAL HISTORY: CHEST PAIN COMPARISON: 02/10/2024. TECHNIQUE: XR CHEST 1 VIEW 02/16/2024 1:34 AM CDT FINDINGS: The heart is enlarged. There may be right basilar consolidation. There is no pleural effusion. There is no pneumothorax. There are no acute osseous findings. IMPRESSION: Possible right basilar pneumonia. . 02/15 01:34 Order name: BMP; Complete Time: 03:39 sp4 02/15 01:34 Order name: Blood Culture Adult (2) sp4 02/15 01:34 Order name: CBC with Diff; Complete Time: 07:23 sp4 02/15 01:34 Order name: CPK; Complete Time: 03:39 sp4 02/15 01:34 Order name: Hepatic Function; Complete Time: 03:39 sp4 02/15 01:34 Order name: Lipase; Complete Time: 03:39 sp4 02/15 01:34 Order name: Magnesium; Complete Time: 03:39 sp4 02/15 01:34 Order name: NT PRO-BNP; Complete Time: 03:39 sp4 02/15 01:34 Order name: PT-INR; Complete Time: 03:39 sp4 02/15 01:34 Order name: Ptt, Activated; Complete Time: 03:39 sp4 02/15 01:34 Order name: Troponin HS; Complete Time: 03:39 sp4 02/15 01:35 Order name: ABG; Complete Time: 03:39 sp4 02/15 01:36 Order name: Alcohol Level; Complete Time: 03:39 sp4 02/15 02:58 Order name: Manual Differential; Complete Time: 07:23 EDMS 02/15 01:34 Order name: XRAY CXR (1 view) sp4 02/15 01:34 Order name: EKG; Complete Time: 01:35 sp4 02/15 01:34 Order name: Cardiac monitoring; Complete Time: 02:22 sp4 02/15 01:34 Order name: EKG - Nurse/Tech; Complete Time: 02: sp4 02/15 01:34 Order name: IV Saline Lock; Complete Time: 02: sp4 02/15 01:34 Order name: Labs collected and sent; Complete Time: 02: sp4 02/15 01:34 Order name: O2 Per Protocol; Complete Time: sp4 02/15 01:34 Order name: O2 Sat Monitoring; Complete Time: 4 EC:23 Rate is 88 beats/min. Rhythm is regular, Normal Sinus Rhythm. QRS [place] is Normal. [place] sp4 interval is normal. QRS interval is normal. QT interval is normal. No Q waves. T waves are Normal. No ST changes noted. Clinical impression: No evidence of ischemia. Interpreted by me. Reviewed by me. Administered Medications: 02:30 Drug: Ipratropium Inhalation Aerosol 0.5 mg Inhalation once; Every 20 min for a total km8 of 3 treatments x3 Route: Inhalation; 02:35 Drug: MethylPrednisoLONE IVP 125 mg IVP once Route: IVP; Site: left upper arm; km8 03:46 Follow up: Response: No adverse reaction km8 02:35 Drug: Ativan IVP 1 mg IVP once Route: IVP; Site: left upper arm; km8 03:46 Follow up: Response: No adverse reaction km8 02:35 Drug: Ondansetron IVP 4 mg IVP once; over 2 minutes Route: IVP; Site: left upper arm; km8 03:46 Follow up: Response: No adverse reaction km8 02:39 Drug: Ketorolac IVP 30 mg IVP once Route: IVP; Site: left upper arm; km8 03:46 Follow up: Response: No adverse reaction km8 02:50 Drug: Ipratropium Inhalation Aerosol 0.5 mg Inhalation once; Every 20 min for a total km8 of 3 treatments x3 Route: Inhalation; 03:10 Drug: Ipratropium Inhalation Aerosol 0.5 mg Inhalation once; Every 20 min for a total km8 of 3 treatments x3 Route: Inhalation; 03:46 Not Given (Duplicate Order): ipratropiumaerosol 0.5 mg Inhalation once; Every 20 min km8 for a total of 3 treatments x3 Disposition Summary: 02/16/24 03:41 Discharge Ordered Notes: Location: Home sp4 Problem: new sp4 Symptoms: have improved sp4 Condition: Stable sp4 Diagnosis - COPD/ Chronic obstructive pulmonary disease with (acute) exacerbation sp4 Followup: sp4 - With: Private Physician - When: 7 - 10 days - Reason: Recheck today's complaints Discharge Instructions: - Discharge Summary Sheet sp4 - Chronic Obstructive Pulmonary Disease sp4 Signatures: Dispatcher [employer] EDMS Jose Crews MD MD sp4 Mary Valenzuela RN RN km8 Corrections: (The following items were deleted from the chart) 01:35 01:35 BASIC METABOLIC PANEL+C.LAB.BRZ ordered. EDMS EDMS 01:35 01:35 BLOOD CULTURE*+BA.LAB.BRZ ordered. EDMS EDMS 01:35 01:35 CBC+H.LAB.BRZ ordered. EDMS EDMS 01:35 01:35 CREATINE PHOSPHOKINASE+C.LAB.BRZ ordered. EDMS EDMS 01:35 01:35 HEPATIC FUNCTION+C.LAB.BRZ ordered. EDMS EDMS 01:35 01:35 LIPASE+C.LAB.BRZ ordered. EDMS EDMS 01:35 01:35 MAGNESIUM+C.LAB.BRZ ordered. EDMS EDMS 01:35 01:35 PROBNP+C.LAB.BRZ ordered. EDMS EDMS 01:35 01:35 PROTIME (+INR)+COAG.LAB.BRZ ordered. EDMS EDMS 01:35 01:35 PTT, ACTIVATED+COAG.LAB.BRZ ordered. EDMS EDMS 01:35 01:35 Troponin High Sensitivity+C.LAB.BRZ ordered. EDMS EDMS 01:35 01:35 Arterial Blood Gas+RC.LAB.BRZ ordered. EDMS EDMS
[2024-02-16 04:17] LABS: Band Neutrophils 8 % (0-1); Differential Total Cells Count 100; Lymphocytes 5 % (15-42); Monocytes 5 % (0-10); Reactive Lymphocytes 1 %; Segmented Neutrophils 81 % (40-80)
[2024-02-16 04:18] LABS: Blood Morphology Comment NOT SEEN (NOT SEEN); Platelet Estimate ADEQ
[2024-02-16 07:29] VITALS: BP 119/65; TEMP 98.8; O2SAT 100
--- NOTE | 2024-02-16 13:31 | RAD REPORT ---
EXAM DESCRIPTION: RAD - Chest Single View - 02/16/2024 1:54 am CLINICAL HISTORY: CHEST PAIN COMPARISON: 02/10/2024. TECHNIQUE: XR CHEST 1 VIEW 02/16/2024 1:34 AM CDT FINDINGS: The heart is enlarged. There may be right basilar consolidation. There is no pleural effus ion. There is no pneumothorax. There are no acute osseous findings. IMPRESSION: Possible right basilar pneumonia. Electronically signed by: Satya Russell MD 02/16/2024 02:19 AM CDT Due to temporary technical issues with the PACS/Fluency reporting system, reports are being signed by the in house radiologists without review as a courtesy to insure prompt reporting. The interpreting radiologist is fully responsible for the content of the report.
--- NOTE | 2024-02-16 16:15 | EKG ---
Test Date: 2024-02-16 Test Time: 02:16:54 [place]: RV MEASUREMENT RESULTS: Intervals: Rate: 88 NH: 136 QRSD: 110 QT: 388 QTc: 469 [place]: P: 68 NH: 136 QRS: 87 T: 80 INTERPRETIVE STATEMENTS: Normal sinus rhythm Nonspecific T wave abnormality Prolonged QT Abnormal ECG Compared to ECG 02/15/2024 17:08:00 T-wave abnormality now present Electronically Signed On 02-16-24 16:13:59 CDT by Rosalino Albert
== END 2024-02-16 03:47 | disposition home or self-care (01) ==
LOC: ER 01:27
DX: J44.1 Chronic obstructive pulmonary disease with (acute) exacerbation (principal); F10.20 Alcohol dependence, uncomplicated; I10 Essential (primary) hypertension; F17.210 Nicotine dependence, cigarettes, uncomplicated; Z99.81 Dependence on supplemental oxygen
CPT/HCPCS: 93005; 87040; 85025; 80048; 36415; 83735; 82550; 85610; 80076; 85730; 84484; 83690; 83880; 71045; 82805; 82077; 36600; J7644; J2930; J2405

== ENCOUNTER 2024-02-18 16:58 | Emergency (ER) | payer OTHER ==
--- OUTSIDE RECORDS SUMMARY | 2024-02-18 17:03 | XMS REPORT | Continuity of Care Document ---
Author Name Unknown Address [address] [facility] [address] [place] [address] [facility] Address [address] [facility]. 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 Name Role Phone ADRIANNA LOPEZ Primary Care Physician Unavailab PEG Mason Attending Clinician Unavailable Peg Camp NP Attending Clinician [phone] URSULA QUINTANILLA Attending Clinician Unavailable DEMETRIA DAVENPORT Attending Clinician Unav ailable Demetria Davenport MD Attending Clinician + Christina Victoria Attending Clinician [phone] JAC NAVARRO Attending Clinician Unavailable Jac Navarro MD Attending Clinician [phone] TYLER ROWE Attending Clinician Unavailab MELINDA Boothe Attending Clinician Unavailable Melinda Maciel DO Attending Clinician CHRISTY HOLLIDAY Attending Clinician Unavailable Christy Holliday MD Attending Clinician DARIEN LOBO Attending Clinician Unavailable MARIA ELENA CHAN MEDICAL Attending Clinicia tashi Unavailable DENISE SUNG Attending Clinician Unavailable KARLEY ADAMS Attending Clinician Unavailable JAC NAVARRO Admitting Clinician Unavailable MELINDA MACIEL Admitting Clinician Unavailable CHRISTY HOLLIDAY Admitting Clinician Unavailable Payers Payer Name Policy Type Policy Number Effective Date Expirati on Date Source [facility] [id number] 2023 00:00:00 2024 00:00:00 [employer] [id number] 2023 00:00:00 [employer] 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[employer] 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 ON 9 [id number] 2023 00:00:00 Problems Condition Name Condition Details Condition Category Status Onset Date Resolution Date Last Treatment Date Treating Clinician Comments Source Acute exacerbati on of chronic obstructiv e pulmonary disease (COPD) Acute exacerbati on of chronic obstructiv e pulmonary disease (COPD) Disease Active 03-24 00:00: 00 [facility] Obesity (BMI 30-39.9) Obesity (BMI 30-39.9) Disease Active 03-24 00:00: 00 [facility] Allergies, Adverse Reactions, Alerts Allergy Name Allergy Type Status Severity Reaction(s) Onset Date Inactive Date Treating Clinician Comments Source Lisinopr il Propensi ty to adverse reaction s Active Anaphylaxis 03-24 00:00: 00 [facility] LISINOPR IL DRUG INGREDI Active Anaphylaxis 03-24 00:00: 00 [facility] Social History Social Habit Start Date Stop Date Quantity Comments Source History of tobacco use Smokes tobacco daily [facility] function 2024-02-08 00:00:00 2024-02-08 00:00:00 [facility] Alcohol intake 2024-02-08 00:00:00 2024-02-08 00:00:00 4.29 /d [facility] Exposure to SARS-CoV-2 (event) 2022-10-04 00:00:00 2022-10-14 10:25:00 Not sure [facility] Tobacco use and exposure 2018-03-24 00:00:00 2018-03-24 00:00:00 User of smokeless tobacco [facility] Tobacco Comment 2018-03-24 00:00:00 2018-03-24 00:00:00 trying to quit [facility] Sex Assigned At 1970 00:00:00 1970 00:00:00 [facility] Smoking Status Start Date Stop Date Source Smokes tobacco daily 2018-03-24 00:00:00 [facility] Medications Ordered Medication Name Filled Medication Name Start Date Stop Date Current Medication? Ordering Clinician Indication Dosage Frequency Signature (SIG) Comments Components Source ketorolac (TORADOL) injection 30 mg 02-17 03:15: 00 02-17 15:14 :00 Yes 30mg 30 mg, Slow IV Push, ONCE, 1 dose, On Thu02/17/24 at 2215, Routine [facility] methylpredn isolone sod succ (SOLU-MEDRO L) injection 125 mg 02-17 03:00: 00 02-17 14:59 :00 Yes 125mg 125 mg, Intravenou s, ONCE, 1 dose, On Thu02/17/24 at 2200, 2 mL [facility] ipratropium -albuteroL (DUONEB) 0.5 mg-3 mg(2.5 mg base)/3 mL nebulizer solution 6 mL 02-17 03:00: 00 02-17 14:59 :00 Yes 6mL 6 mL, Inhalation , ONCE NOW, 1 dose, On Thu02/17/24 at 2200, Routine [facility] NaCl 0.9% (NS) bolus infusion 1,000 mL 02-17 03:00: 00 02-17 14:59 :00 Yes 1000mL at 999 mL/hr, 1,000 mL, IV Infusion, ONCE, 1 dose, On Thu02/17/24 at 2200, LAURYN [facility] triamterene -hydrochlor othiazide 37.5-25 mg per capsule 02-16 20:52: 37 02-16 00:00 :00 No 1{capsu le} Take 1 capsule by mouth every morning. [facility] albuterol 5 mg/mL nebulizer solution 02-16 20:51: 42 02-16 00:00 :00 No 2.5mg Inhale 2.5 mg every 6 (six) hours as needed for Wheezing or Shortness of Breath. [facility] ketorolac (TORADOL) injection 15 mg 02-08 03:00: 00 02-08 02:21 :00 No 15mg 15 mg, Slow IV Push, ONCE, 1 dose, On Thu02/08/24 at 2200, Routine [facility] iopamidol (ISOVUE 370-500 mL) injection 100 mL 02-07 22:30: 00 02-07 22:30 :00 Yes [id number] 100mL 100 mL, Intravenou s, ONCE, 1 dose, On Thu02/08/24 at 1730, Routine [facility] ipratropium -albuteroL (DUONEB) 0.5 mg-3 mg(2.5 mg base)/3 mL nebulizer solution 3 mL 02-07 21:15: 00 02-07 20:45 :00 No 3mL 3 mL, Inhalation , ONCE, 1 dose, On Thu02/08/24 at 1615, Routine [facility] morpHINE (2 mg/mL) injection 4 mg 02-07 21:15: 00 02-07 20:27 :00 No 4mg 4 mg, Slow IV Push, ONCE, 1 dose, On Thu02/08/24 at 1615, STAT [facility] ondansetron (ZOFRAN (PF)) injection 4 mg 02-07 21:15: 00 02-07 20:22 :00 No 4mg 4 mg, Slow IV Push, ONCE, 1 dose, On Thu02/08/24 at 1615, [facility] magnesium sulfate in water 2 gram/50 mL (4 %) infusion 2 g 02-07 21:00: 00 02-07 21:30 :00 No 2g 2 g, IV Piggyback, Administer over 60 Minutes, ONCE, 1 dose, On Thu02/08/24 at 1600, Routine [facility] ipratropium -albuteroL (DUONEB) 0.5 mg-3 mg(2.5 mg base)/3 mL nebulizer solution 3 mL 02-07 20:30: 00 02-07 19:31 :00 No 3mL 3 mL, Inhalation , ONCE, 1 dose, On Thu02/08/24 at 1530, [facility] HYDROcodone -acetaminop hen (NORCO) 10-325 mg tablet 1 tablet 01-13 13:15: 00 01-13 12:15 :00 No 1{tbl} 1 tablet, Oral, ONCE, 1 dose, On Thu01/14/24 at 0715, [facility] ipratropium -albuteroL (DUONEB) 0.5 mg-3 mg(2.5 mg base)/3 mL nebulizer solution 3 mL 01-13 13:00: 00 01-13 11:53 :00 No 3mL 3 mL, Inhalation , ONCE NOW, 1 dose, On Thu01/14/24 at 0700, [facility] ondansetron (ZOFRAN (PF)) injection 4 mg 01-13 11:30: 00 01-13 11:37 :00 No 4mg 4 mg, Slow IV Push, ONCE, 1 dose, On Thu01/14/24 at 0530, [facility] morpHINE (4 mg/mL) injection 4 mg 01-13 11:30: 00 01-13 11:37 :00 No 4mg 4 mg, Slow IV Push, ONCE, 1 dose, On Thu01/14/24 at 0530, STAT [facility] azithromyci n (ZITHROMAX Z-PORTER) 250 mg tablet 01-13 00:00: 00 02-16 00:00 :00 No [id number] Take 500 mg on day 1 then 250 mg on days 2-5 [facility] predniSONE 20 mg tablet 01-13 00:00: 00 02-16 00:00 :00 No [id number] Take 1 po tid x 2 days, then take 1 po bid x 3 days, then take 1 po daily x 3 days. [facility] acetaminoph en-codeine 300-30 mg tablet 01-13 00:00: 00 01-21 04:59 :00 Yes [id number] 1{tbl} Take 1 tablet by mouth every 6 (six) hours as needed for Pain (scale 7-10) (severe cough) for up to 7 days. Indication s: acute pain, severe cough [facility] clonazePAM 1 mg tablet 12-26 00:00: 00 02-16 00:00 :00 No 1mg Take 1 tablet by mouth at bedtime as needed for Other (anxiety). [facility] KCL (KLOR-CON M20) tablet 40 [...] dose, On Thu12/22/23 at 2215, Routine [facility] famotidine (PEPCID (PF)) injection 20 mg 12-23 04:15: 00 12-23 04:15 :00 No 20mg 20 mg, Slow IV Push, ONCE, 1 dose, On Thu12/22/23 at 2215, LAURYN [facility] HYDROcodone -acetaminop hen (NORCO) 10-325 mg tablet 1 tablet 12-22 04:30: 00 12-22 16:29 :00 Yes 1{tbl} 1 tablet, Oral, ONCE, 1 dose, On Thu12/21/23 at 2230, Routine [facility] pantoprazol e (PROTONIX) 80 mg in NaCl 0.9% (NS) 20 mL syringe 12-22 04:15: 00 12-22 16:14 :00 Yes 80mg 80 mg, IV Push, ONCE, 1 dose, On Thu12/21/23 at 2215, Administer over 2 Minutes, 20 mL [facility] iopamidol (ISOVUE 370-500 mL) injection 100 mL 12-22 03:30: 00 12-22 03:30 :00 No [id number] 100mL 100 mL, Intravenou s, ONCE, 1 dose, On Thu12/21/23 at 2130, Routine [facility] morpHINE (4 mg/mL) injection 4 mg 12-22 03:30: 00 12-22 02:16 :00 No 4mg 4 mg, Slow IV Push, ONCE, 1 dose, On Thu12/21/23 at 2130, Routine [facility] ondansetron (ZOFRAN (PF)) injection 4 mg 12-22 02:45: 00 12-22 02:02 :00 No 4mg 4 mg, Slow IV Push, ONCE, 1 dose, On Thu12/21/23 at 2045, Routine [facility] hydrocortis one 25 mg suppository 12-22 00:00: 00 Yes [id number] 25mg Insert 1 Suppositor y into rectum 2 (two) times daily as needed for Rectal itching/pa in. [facility] ondansetron 4 mg disintegrat ing tablet 12-22 00:00: 00 02-16 00:00 :00 No [id number] 4mg Take 1 tablet by mouth every 8 (eight) hours as needed for Nausea and Vomiting (N/V). [facility] amoxicillin -clavulanat e 875-125 mg per tablet 12-22 00:00: 00 01-02 05:59 :00 Yes [id number] 1{tbl} Take 1 tablet by mouth every 12 (twelve) hours for 10 days. [facility] methylpredn isolone sod succ (SOLU-MEDRO L) injection 125 mg 2022-11 08:45: 00 10-27 20:44 :00 No 125mg 125 mg, Slow IV Push, ONCE, 1 dose, On Thu10/27/23 at 0245, STAT [facility] ipratropium -albuteroL (DUONEB) 0.5 mg-3 mg(2.5 mg base)/3 mL nebulizer solution 3 mL 2022-11 08:45: 00 10-27 20:44 :00 No 3mL 3 mL, Inhalation , ONCE NOW, 1 dose, On Thu10/27/23 at 0245, LAURYN [facility] diazePAM (VALIUM) tablet 10 mg 2022-11 07:45: 00 10-27 19:44 :00 No 10mg 10 mg, Oral, ONCE, 1 dose, On Thu10/27/23 at 0145, LAURYN [facility] levoFLOXaci n (LEVAQUIN) tablet 500 mg 2022-11 07:45: 00 10-27 19:44 :00 No 500mg 500 mg, Oral, ONCE, 1 dose, On Thu10/27/23 at 0145, LAURYN
Re ason for Anti-Infec tive: Empiric Non-Surgic al Prophylaxi s
Durat ion of therapy: Once (ED) [facility] iopamidol (ISOVUE 370-500 mL) injection 70 mL 2021-11 18:30: 00 10-14 18:30 :00 No [id number] 70mL 70 mL, Intravenou s, ONCE, 1 dose, On Thu10/14/22 at 1230, Routine [facility] methylpredn isolone sod succ (SOLU-MEDRO L) injection 125 mg 2021-11 18:00: 00 Yes 125mg 125 mg, Intravenou s, Q6H, First dose on Thu10/14/22 at 1200, Until Discontinu ed, Routine [facility] furosemide (LASIX) injection 40 mg 2021-11 17:45: 00 10-14 16:39 :00 No 40mg 40 mg, IV Push, ONCE, 1 dose, On Thu10/14/22 at 1145, LAURYN [facility] ipratropium -albuteroL (DUONEB) 0.5 mg-3 mg(2.5 mg base)/3 mL nebulizer solution 3 mL 2021-11 17:30: 00 10-14 16:41 :00 No 3mL 3 mL, Inhalation , ONCE, 1 dose, On Thu10/14/22 at 1130, Routine [facility] FENTanyl PF (SUBLIMAZE (PF)) injection 50 mcg 2021-11 16:45: 00 10-14 16:39 :00 No 50ug 50 mcg, Slow IV Push, ONCE, 1 dose, On Thu10/14/22 at 1045, Routine [facility] levoFLOXaci n 750 mg tablet 2021-11 00:00: 00 02-16 00:00 :00 No [id number] 750mg Take 1 tablet by mouth every 24 (twenty-fo ur) hours. [facility] HYDROcodone -acetaminop hen (NORCO) 10-325 mg tablet 1 tablet 03-12 12:15: 00 03-12 11:21 :00 No 1{tbl} 1 tablet, Oral, ONCE, 1 dose, On Thu03/12/22 at 0715, Routine [facility] HYDROcodone -acetaminop hen 10-325 mg tablet 03-12 00:00: 00 03-20 04:59 :00 No [id number] 1{tbl} Take 1 tablet by mouth every 6 (six) hours as needed for Pain (scale 7-10) for up to 7 days. Indication s: acute pain [facility] ipratropium -albuteroL (DUONEB) 0.5 mg-3 mg(2.5 mg base)/3 mL nebulizer solution 3 mL 02-20 13:00: 00 Yes 3mL 3 mL, Inhalation , QID, First dose on Thu02/20/22 at 0800, Until Discontinu ed, Routine [facility] methylPREDN ISolone sod succ (SOLU-MEDRO L (PF)) injection 40 mg 02-20 11:45: 00 02-20 10:43 :00 No 40mg 40 mg, Intravenou s, ONCE, 1 dose, On Thu02/20/22 at 0645, STAT [facility] foLIC acid (FOLATE) tablet 1 mg 02-20 11:45: 00 02-20 10:41 :00 No 1mg 1 mg, Oral, ONCE, 1 dose, On Thu02/20/22 at 0645, LAURYN [facility] thiamine (VITAMIN B1) injection 100 mg 02-20 11:45: 00 02-20 10:43 :00 No 100mg 100 mg, Intravenou s, ONCE, 1 dose, On Thu02/20/22 at 0645, LAURYN [facility] LORazepam (ATIVAN) injection 2 mg 02-20 11:45: 00 02-20 10:42 :00 No 2mg 2 mg, Slow IV Push, ONCE, 1 dose, On Thu02/20/22 at 0645, STAT [facility] ipratropium -albuteroL (DUONEB) 0.5 mg-3 mg(2.5 mg base)/3 mL nebulizer solution 3 mL 02-20 10:30: 00 02-20 09:34 :00 No 3mL 3 mL, Inhalation , ONCE, 1 dose, On [facility] 02/20/22 at 0530, Routine [facility] albuterol 90 mcg/actuati on inhaler 02-20 00:00: 00 Yes [id number] 2{puff} Inhale 2 Puffs every 4 (four) hours as needed for Wheezing or Shortness of Breath. [facility] triamterene -hydrochlor othiazid 37.5-25 mg tablet 02-20 00:00: 00 Yes [id number] 1{tbl} Take 1 tablet by mouth daily. [facility] chlordiazeP OXIDE 25 mg capsule 02-20 00:00: 00 Yes [id number] 25mg Take 1 capsule by mouth every 6 (six) hours as needed for Anxiety, Agitation, Heart Rate => 100 or Detox. [facility] predniSONE 10 mg tablet 02-20 00:00: 00 02-16 00:00 :00 No [id number] TAKE ONE TABLET BY MOUTH DAILY [facility] albuterol 2.5 mg /3 mL (0.083 %) nebulizer solution 02-20 00:00: 00 02-16 00:00 :00 No [id number] 2.5mg Inhale 3 mL every 4 (four) hours. May also nebulize one extra every 6 hours. [facility] budesonide- formoteroL 160-4.5 mcg/actuati on inhaler 02-20 00:00: 00 02-16 00:00 :00 No [id number] 2{puff} Inhale 2 Puffs 2 (two) times daily. [facility] albuterol 5 mg/mL nebulizer solution 07-16 14:02: 20 Yes 2.5mg Inhale 2.5 mg every 6 (six) hours as needed for Wheezing or Shortness of Breath. [facility] budesonide- formoterol 160-4.5 mcg/actuati on inhaler 07-16 00:00: 00 Yes 2{puff} Inhale 2 Puffs 2 (two) times daily. [facility] albuterol 2.5 mg /3 mL (0.083 %) nebulizer solution 07-16 00:00: 00 Yes 2.5mg Inhale 3 mL every 4 (four) hours as needed for Wheezing or Shortness of Breath. [facility] triamterene -hydrochlor othiazide 37.5-25 mg per capsule 03-26 16:32: 14 Yes 1{capsu le} Take 1 capsule by mouth every morning. [facility] amLODIPine 10 mg tablet 03-26 16:32: 14 Yes 10mg Take 10 mg by mouth at bedtime. [facility] gabapentin 100 mg capsule 03-26 16:32: 14 Yes 100mg Take 100 mg by mouth 2 (two) times daily as needed (MSK pain). [facility] foLIC acid 1 mg tablet 03-26 16:32: 14 Yes 1mg Take 1 mg by mouth daily. [facility] budesonide- formoterol 160-4.5 mcg/actuati on inhaler 03-26 00:00: 00 02-16 00:00 :00 No 2{puff} Inhale 2 Puffs 2 (two) times daily. [facility] Immunizations Ordered Immunization Name Filled Immunization Name Date Status Comments Source SARS-COV-2 COVID-19 PFIZER VACCINE 2021-02-03 00:00:00 Completed [facility] SARS-COV-2 COVID-19 PFIZER VACCINE 2021-02-03 00:00:00 Completed [facility] SARS-COV-2 COVID-19 PFIZER VACCINE 2021-02-03 00:00:00 Completed [facility] SARS-COV-2 COVID-19 PFIZER VACCINE 2021-01-13 00:00:00 Completed [facility] SARS-COV-2 COVID-19 PFIZER VACCINE 2021-01-13 00:00:00 Completed [facility] SARS-COV-2 COVID-19 PFIZER VACCINE 2021-01-13 00:00:00 Completed [facility] Pneumococcal Polysaccharide, PPSV23 (PNEUMOVAX) 2018-03-26 00:00:00 Completed [facility] Influenza Virus Vaccine Quad IM 3+ YRS 2018-03-26 00:00:00 Completed [facility] Pneumococcal Polysaccharide, PPSV23 (PNEUMOVAX) 2018-03-26 00:00:00 Completed [facility] Influenza Virus Vaccine Quad IM 3+ YRS 2018-03-26 00:00:00 Completed [facility] Pneumococcal Polysaccharide, PPSV23 (PNEUMOVAX) 2018-03-26 00:00:00 Completed [facility] Influenza Virus Vaccine Quad IM 3+ YRS 2018-03-26 00:00:00 Completed [facility] Pneumococcal Polysaccharide, PPSV23 (PNEUMOVAX) Unknown Completed [facility] Influenza Virus Vaccine Quad IM 3+ YRS Unknown Completed [facility] SARS-COV-2 COVID-19 PFIZER VACCINE Unknown Completed [facility] SARS-COV-2 COVID-19 PFIZER VACCINE Unknown Completed [facility] Pneumococcal Polysaccharide, PPSV23 (PNEUMOVAX) Unknown Completed [facility] Influenza Virus Vaccine Quad IM 3+ YRS Unknown Completed [facility] SARS-COV-2 COVID-19 PFIZER VACCINE Unknown Completed [facility] SARS-COV-2 COVID-19 PFIZER VACCINE Unknown Completed [facility] Pneumococcal Polysaccharide, PPSV23 (PNEUMOVAX) Unknown Completed [facility] Influenza Virus Vaccine Quad IM 3+ YRS Unknown Completed [facility] SARS-COV-2 COVID-19 PFIZER VACCINE Unknown Completed [facility] SARS-COV-2 COVID-19 PFIZER VACCINE Unknown Completed [facility] Pneumococcal Polysaccharide, PPSV23 (PNEUMOVAX) Unknown Completed [facility] Influenza Virus Vaccine Quad IM 3+ YRS Unknown Completed [facility] SARS-COV-2 COVID-19 PFIZER VACCINE Unknown Completed [facility] SARS-COV-2 COVID-19 PFIZER VACCINE Unknown Completed [facility] Pneumococcal Polysaccharide, PPSV23 (PNEUMOVAX) Unknown Completed [facility] Influenza Virus Vaccine Quad IM 3+ YRS Unknown Completed [facility] SARS-COV-2 COVID-19 PFIZER VACCINE Unknown Completed [facility] SARS-COV-2 COVID-19 PFIZER VACCINE Unknown Completed [facility] Pneumococcal Polysaccharide, PPSV23 (PNEUMOVAX) Unknown Completed [facility] Influenza Virus Vaccine Quad IM 3+ YRS Unknown Completed [facility] SARS-COV-2 COVID-19 PFIZER VACCINE Unknown Completed [facility] SARS-COV-2 COVID-19 PFIZER VACCINE Unknown Completed [facility] Pneumococcal Polysaccharide, PPSV23 (PNEUMOVAX) Unknown Completed [facility] Influenza Virus Vaccine Quad IM 3+ YRS Unknown Completed [facility] SARS-COV-2 COVID-19 PFIZER VACCINE Unknown Completed [facility] SARS-COV-2 COVID-19 PFIZER VACCINE Unknown Completed [facility] Pneumococcal Polysaccharide, PPSV23 (PNEUMOVAX) Unknown Completed [facility] Influenza Virus Vaccine Quad IM 3+ YRS Unknown Completed [facility] SARS-COV-2 COVID-19 PFIZER VACCINE Unknown Completed [facility] SARS-COV-2 COVID-19 PFIZER VACCINE Unknown Completed [facility] Vital Signs Vital Name Observation Time Observation Value Comments S ource Systolic blood pressure 2024-02-18 01:57:00 134 mm[Hg] [facility] Diastolic blood pressure 2024-02-18 01:57:00 94 mm[Hg] [facility] Body height 2024-02-18 01:57:00 162.6 cm [facility] Body weight 2024-02-18 01:57:00 79.379 kg [facility] BMI 2024-02-18 01:57:00 30.04 kg/m2 [facility] Heart rate 2024-02-18 01:53:00 110 /min [facility] Body temperature 2024-02-18 01:53:00 36.61 Debbie [facility] Respiratory rate 2024-02-18 01:53:00 24 /min [facility] Oxygen saturation in Arterial blood by Pulse oximetry 2024-02-18 01:53:00 93 /min [facility] Systolic blood pressure 2024-02-09 01:54:05 150 mm[Hg] [facility] Diastolic blood pressure 2024-02-09 01:54:05 91 mm[Hg] [facility] Heart rate 2024-02-09 01:54:05 87 /min [facility] Respiratory rate 2024-02-09 01:54:05 17 /min [facility] Oxygen saturation in Arterial blood by Pulse oximetry 2024-02-09 01:54:05 93 /min [facility] Body temperature 2024-02-09 01:45:00 36.67 Debbie [facility] Body height 2024-02-09 01:45:00 162.6 cm [facility] Body weight 2024-02-09 01:45:00 81.194 kg [facility] BMI 2024-02-09 01:45:00 30.73 kg/m2 [facility] Respiratory rate 2024-02-08 21:00:00 18 /min [facility] Oxygen saturation in Arterial blood by Pulse oximetry 2024-02-08 21:00:00 96 /min [facility] Systolic blood pressure 2024-02-08 20:27:00 164 mm[Hg] [facility] Diastolic blood pressure 2024-02-08 20:27:00 90 mm[Hg] [facility] Heart rate 2024-02-08 20:27:00 83 /min [facility] Body temperature 2024-02-08 19:12:00 36.83 Debbie [facility] Body height 2024-02-08 19:12:00 162.6 cm [facility] Body weight 2024-02-08 19:12:00 81.194 kg [facility] BMI 2024-02-08 19:12:00 30.73 kg/m2 [facility] Heart rate 2024-01-14 12:15:00 98 /[facility] Body temperature 2024-01-14 12:15:00 36.56 Debbie [facility] Respiratory rate 2024-01-14 12:15:00 14 /min [facility] Oxygen saturation in Arterial blood by Pulse oximetry 2024-01-14 12:15:00 95 /min [facility] Systolic blood pressure 2024-01-14 12:00:00 140 mm[Hg] [facility] Diastolic blood pressure 2024-01-14 12:00:00 90 mm[Hg] [facility] Body height 2024-01-14 10:51:00 162.6 cm [facility] Body weight 2024-01-14 10:51:00 81.194 kg [facility] BMI 2024-01-14 10:51:00 30.73 kg/m2 [facility] Systolic blood pressure 2023-12-23 05:02:00 133 mm[Hg] [facility] Diastolic blood pressure 2023-12-23 05:02:00 84 mm[Hg] [facility] Heart rate 2023-12-23 05:02:00 78 /min [facility] Body temperature 2023-12-23 05:02:00 36.17 Debbie [facility] Respiratory rate 2023-12-23 05:02:00 17 /min [facility] Oxygen saturation in Arterial blood by Pulse oximetry 2023-12-23 05:02:00 91 /min [facility] Body height 2023-12-23 03:45:00 162.6 cm [facility] Body weight 2023-12-23 03:45:00 81.194 kg [facility] BMI 2023-12-23 03:45:00 30.73 kg/m2 [facility] Systolic blood pressure 2023-12-22 02:08:00 143 mm[Hg] [facility] Diastolic blood pressure 2023-12-22 02:08:00 92 mm[Hg] [facility] Heart rate 2023-12-22 02:08:00 81 /min [facility] Respiratory rate 2023-12-22 02:08:00 13 /min [facility] Oxygen saturation in Arterial blood by Pulse oximetry 2023-12-22 02:08:00 95 /min [facility] Body temperature 2023-12-22 01:33:00 36.72 Debbie [facility] Body height 2023-12-22 01:33:00 162.6 cm [facility] Body weight 2023-12-22 01:33:00 81.239 kg [facility] BMI 2023-12-22 01:33:00 30.74 kg/m2 [facility] Systolic blood pressure 2023-11-11 02:00:00 127 mm[Hg] [facility] Diastolic blood pressure 2023-11-11 02:00:00 87 mm[Hg] [facility] Heart rate 2023-11-11 02:00:00 79 /min [facility] Respiratory rate 2023-11-11 02:00:00 20 /min [facility] Oxygen saturation in Arterial blood by Pulse oximetry 2023-11-11 02:00:00 98 /min [facility] Body temperature 2023-11-11 01:31:00 36.28 Debbie [facility] Body height 2023-11-11 01:31:00 162.6 cm [facility] Body weight 2023-11-11 01:31:00 79.379 kg [facility] BMI 2023-11-11 01:31:00 30.04 kg/m2 [facility] Systolic blood pressure 2023-10-27 06:54:00 133 mm[Hg] [facility] Diastolic blood pressure 2023-10-27 06:54:00 94 mm[Hg] [facility] Heart rate 2023-10-27 06:54:00 95 /min [facility] Body temperature 2023-10-27 06:54:00 36.44 Debbie [facility] Respiratory rate 2023-10-27 06:54:00 22 /min [facility] Body height 2023-10-27 06:54:00 162.6 cm [facility] Body weight 2023-10-27 06:54:00 78.472 kg [facility] BMI 2023-10-27 06:54:00 29.70 kg/m2 [facility] Oxygen saturation in Arterial blood by Pulse oximetry 2023-10-27 06:54:00 94 /min [facility] Systolic blood pressure 2022-10-14 19:43:00 111 mm[Hg] [facility] Diastolic blood pressure 2022-10-14 19:43:00 74 mm[Hg] [facility] Heart rate 2022-10-14 19:43:00 98 /min [facility] Body temperature 2022-10-14 19:43:00 36.39 Debbie [facility] Respiratory rate 2022-10-14 19:43:00 22 /min [facility] Oxygen saturation in Arterial blood by Pulse oximetry 2022-10-14 19:43:00 94 /min [facility] Body height 2022-10-14 16:13:00 162.6 cm [facility] Body weight 2022-10-14 16:13:00 81.647 kg [facility] BMI 2022-10-14 16:13:00 30.90 kg/m2 [facility] Systolic blood pressure 2022-03-12 10:13:00 119 mm[Hg] [facility] Diastolic blood pressure 2022-03-12 10:13:00 75 mm[Hg] [facility] Heart rate 2022-03-12 10:13:00 105 /min [facility] Body temperature 2022-03-12 10:13:00 37.28 Debbie [facility] Respiratory rate 2022-03-12 10:13:00 19 /min [facility] Body height 2022-03-12 10:13:00 162.6 cm [facility] Body weight 2022-03-12 10:13:00 99.791 kg [facility] BMI 2022-03-12 10:13:00 37.76 kg/m2 [facility] Oxygen saturation in Arterial blood by Pulse oximetry 2022-03-12 10:13:00 96 /min [facility] Systolic blood pressure 2022-02-20 11:57:00 155 mm[Hg] [facility] Diastolic blood pressure 2022-02-20 11:57:00 88 mm[Hg] [facility] Heart rate 2022-02-20 11:57:00 105 /min [facility] Respiratory rate 2022-02-20 11:57:00 18 /min [facility] Oxygen saturation in Arterial blood by Pulse oximetry 2022-02-20 11:57:00 100 /min [facility] Body temperature 2022-02-20 09:25:00 37 Debbie [facility] Body height 2022-02-20 09:25:00 162.6 cm [facility] Body weight 2022-02-20 09:25:00 96.163 kg [facility] BMI 2022-02-20 09:25:00 36.39 kg/m2 [facility] Procedures Procedure Date / Time Performed Performing Clinician Source AC PANEL 20 + LACTIC ACID 2024-02-08 20:47:00 Christina Villarreal [facility] XR CHEST 1 VW 2024-02-08 19:47:00 Christina Villrareal [facility] URINALYSIS 2024-02-08 19:36:00 [facility] MAGNESIUM 2024-02-08 19:25:00 [facility] TROPONIN I 2024-02-08 19:25:00 [facility] COMP. METABOLIC PANEL ([id number]) 2024-02-08 19:25:00 Christina Villarreal [facility] ETHANOL 2024-02-08 19:25:00 [facility] CBC WITH DIFF 2024-02-08 19:25:00 Christina Villarreal [facility] N-TERMINAL PRO-BNP 2024-02-08 19:25:00 Christina Villarreal [facility] EKG-12 LEAD 2024-01-14 12:00:51 [facility] 2024-01-14 11:11:00 Jac Navarro [facility] TROPONIN I 2024-01-14 11:11:00 Jac Navarro [facility] COMP. METABOLIC PANEL ([id number]) 2024-01-14 11:11:00 Jac Navarro [facility] ETHANOL 2024-01-14 11:11:00 Jac Navarro [facility] CBC WITH DIFF 2024-01-14 11:11:00 [facility] N-TERMINAL PRO-BNP 2024-01-14 11:11:00 Jac Navarro [facility] COVID-19 (ID NOW RAPID TESTING) 2024-01-14 11:11:00 Jac Navarro [facility] CONSENT/REFUSAL FOR DIAGNOSIS AND TREATMENT 2024-01-14 10:44:32 Doctor Unassigned, Ritchie [facility] LIPASE 2023-12-23 04:17:00 Tyler Rowe [facility] COMP. METABOLIC PANEL ([id number]) 2023-12-23 04:17:00 Tyler Rowe [facility] CBC WITH DIFF 2023-12-23 04:17:00 Tyler Rowe [facility] URINALYSIS 2023-12-23 04:17:00 Tyler Rowe [facility] CONSENT/REFUSAL FOR DIAGNOSIS AND TREATMENT 2023-12-23 03:40:32 Doctor Unassigned, Ritchie [facility] CT ABDOMEN PELVIS W CONTRAST 2023-12-22 02:31:05 Melinda Maciel [facility] LIPASE 2023-12-22 01:58:00 [facility] COMP. METABOLIC PANEL ([id number]) 2023-12-22 01:58:00 Melinda Maciel [facility] ETHANOL 2023-12-22 01:58:00 Melinda Maciel [facility] CBC WITH DIFF 2023-12-22 01:58:00 Maciel, Melinda [facility] PROTHROMBIN TIME / INR 2023-12-22 01:58:00 Wali Maciel [facility] URINALYSIS 2023-12-22 01:58:00 Melinda Maciel [facility] CONSENT/REFUSAL FOR DIAGNOSIS AND TREATMENT 2023-12-22 01:19:14 Doctor Unassigned, Ritchie [facility] NOTICE OF PRIVACY PRACTICES 2023-11-11 01:24:24 Doctor Unassigned, Ritchie [facility] CONSENT/REFUSAL FOR DIAGNOSIS AND TREATMENT 2023-11-11 01:23:54 Doctor Unassigned, Ritchie [facility] COVID-19 (ID NOW RAPID TESTING) 2023-10-27 07:09:00 Jac Navarro [facility] NOTICE OF PRIVACY PRACTICES 2023-10-27 06:49:48 Doctor Unassigned, Ritchie [facility] CONSENT/REFUSAL FOR DIAGNOSIS AND TREATMENT 2023-10-27 06:47:40 Doctor Unassigned, Ritchie [facility] CT ABDOMEN PELVIS W CONTRAST 2022-10-14 17:33:00 Melinda Maciel [facility] XR CHEST 1 VW 2022-10-14 17:10:37 Singer Melinda [facility] TROPONIN I 2022-10-14 16:37:00 Melinda Maciel [facility] COMP. METABOLIC PANEL ([id number]) 2022-10-14 16:37:00 Melinda Maciel [facility] CBC WITH DIFF 2022-10-14 16:37:00 Melinad Maciel [facility] PROTHROMBIN TIME / INR 2022-10-14 16:37:00 Wali Maciel [facility] URINALYSIS 2022-10-14 16:37:00 Melinda Maciel [facility] N-TERMINAL PRO-BNP 2022-10-14 16:37[facility]00 [facility]REAT[facility] 2022-10-14 15:56:36 Doctor Unassigned, Ritchie [facility] CONSENT/REFUSAL FOR DIAGNOSIS AND TREATMENT 2022-03-12 10:03:12 Doctor Unassigned, Ritchie [facility] XR CHEST 1 VW 2022-02-20 09:59:00 Christy Holliday [facility] LIPASE 2022-02-20 09:30:00 Christy Holliday [facility] TROPONIN I 2022-02-20 09:30:00 Christy Holliday [facility] COMP. METABOLIC PANEL ([id number]) 2022-02-20 09:30:00 Christy Holliday [facility] CBC WITH DIFF 2022-02-20 09:30:00 Christy Holliday [facility] N-TERMINAL PRO-BNP 2022-02-20 09:30:00 Christy Holliday [facility] NOTICE OF PRIVACY PRACTICES 2022-02-20 09:15:02 Doctor Unassigned, Ritchie [facility] CONSENT/REFUSAL FOR DIAGNOSIS AND TREATMENT 2022-02-20 09:14:47 Doctor Unassigned, Ritchie [facility] Plan of Care Planned Activity Planned Date Details Comments Source Encounters Start Date/Time End Date/Time Encounter Type Admission Type Attending Clinicians Care Facility Care Department Encounter ID Source 2024-02-17 20:58:00 2024-02-17 21:44:00 Emergency X PEG CAMP [facility] ERT [id number] [facility] 2024-02-17 20:58:00 2024-02-17 21:44:00 Emergency Peg Camp [facility] 1.2.840.114 350.1.13.10 4.2.7.2.686 [id number] [id number] [facility] 2024-02-09 13:10:00 2024-02-09 15:14:00 Emergency E URSULA QUINTANILLA [facility] [id number] [address] [place] [address] 2024-02-08 20:38:00 2024-02-08 21:40:00 Emergency X DEMETRIA DAVENPORT [facility] ERT [id number] [facility] 2024-02-08 20:38:00 2024-02-08 21:40:00 Emergency Demetria Davenport [facility] 1.2.840.114 350.1.13.10 4.2.7.2.686 [id number] 084 [id number] [facility] 2024-02-08 14:08:00 2024-02-08 17:06:00 Emergency Christina Villarreal [facility] 1.2.840.114 350.1.13.10 4.2.7.2.686 [id number] 084 [id number] [facility] 2024-01-14 04:46:00 2024-01-14 06:23:00 Emergency X JAC NAVARRO [facility] ERT [id number] [facility] 2024-01-14 04:46:00 2024-01-14 06:23:00 Emergency Jac Navarro [facility] 1.2840.114 350.1.13.10 4.2.7.2.686 [id number] [id number] [facility] 2023-12-22 21:51:00 2023-12-22 23:13:00 Emergency X JANENEIDATREV MachadoRADHA [facility] ERT [id number] [facility] 2023-12-22 21:51:00 2023-12-22 23:13:00 Emergency Janesahra Trevmassielradha [facility] 1.2840.114 350.1.13.10 4.2.7.2.686 [id number] [id number] [facility] 2023-12-21 19:36:00 2023-12-21 21:52:00 Emergency X MELINDA MACIEL [facility] ERT [id number] [facility] 2023-12-21 19:36:00 2023-12-21 21:52:00 Emergency Melinda Maciel [facility] 1.2.840.114 350.1.13.10 4.2.7.2.686 [id number] 084 [id number] [facility] 2023-11-10 19:29:00 2023-11-10 20:14:00 Emergency X CHRISTY HOLLIDAY [facility] ERT [id number] [facility] 2023-11-10 19:29:00 2023-11-10 20:14:00 Emergency Christy Holliday [facility] 1..840.114 350.1.13.10 4.2.7.2.686 [id number] 084 [id number] [facility] 2023-10-27 00:49:00 2023-10-27 01:41:00 Emergency X TERESSA JAC [facility] ERT [id number] [facility] 2023-10-27 00:49:00 2023-10-27 01:41:00 Emergency Jac Navarro [facility] 1..840.114 350.1.13.10 4.2.7.2.686 [id number] [id number] [facility] 2023-07-15 00:00:00 2023-07-15 00:00:00 Outpatient DARIEN LOBO [id number] [facility] 2023-06-16 11:30:00 2023-06-16 11:30:00 Outpatient DARIEN LOBO [id number] [facility] 2023-05-18 00:00:00 2023-05-18 00:00:00 Outpatient MARIA ELENA CHAN [id number] [facility] 2022-10-14 10:07:00 2022-10-14 14:39:00 Emergency X MACIELMELINDA [facility] ERT [id number] [facility] 2022-10-14 10:07:00 2022-10-14 14:39:00 Emergency Melinda Maciel [facility] 1..840.114 350.1.13.10 4.2.7.2.686 [id number] [id number] [facility] 2022-03-12 05:15:00 2022-03-12 06:41:00 Emergency CHRISTY OZUNA [facility] ERT [id number] [facility] 2022-03-12 05:15:00 2022-03-12 06:41:00 Emergency Mg [place] 1.2.840.114 350.1.13.10 4.2.7.2.686 [id number] 084 [id number] [facility] 2022-02-20 04:17:00 2022-02-20 07:16:00 Emergency X CHRISTY HOLLIDAY [facility] ERT [id number] [facility] 2022-02-20 04:17:00 2022-02-20 07:16:00 Emergency Mg [place] 1.2.840.114 350.1.13.10 4.2.7.2.686 [id number] [id number] [facility] 2021-02-03 11:10:00 2021-02-03 11:10:00 Outpatient DENISE CAMPO [facility] [id number] [facility] 2021-01-13 11:20:00 2021-01-13 11:20:00 Out[facility] [id number] [facility] 2020-11-10 08:20:00 2020-11-10 08:20:00 Outpatient KARLEY ESTRADA [facility] [id number] [facility] Results Test Description Test Time Test Comments Results Result Co mments Source [facility] + Lactic [id number] 20:52:47* Test Item Value Reference Range Interpretation Comme nts PH (test code = 2) 7.39 7.35-7.45 PCO2 (test code = 2543822449) 42 35-45 PO2 (test code = 0223245672) 76 80-100 L HCO3 (test code = 4668703194) 25 22-26 BE (test code = 6024098306) -0.1 -3.0-3.0 THB (test code = 7582054631) 14.3 g/dL 13.5-18.0 %O2HB (test code = 0990532690) 85.8 % 94.0-99.0 L %COHB ART (test code = 0943924872) 9.0 % 0.0-1.5 H %METHB ART (test code = 4710082444) 0.3 % 0.4-1.5 L VOL%O2 ART (test code = 8752878118) 17.3 % 15.0-23.0 NA (test code = 0427587370) 140 mmol/L 135-145 K+ (test code = 2574263970) 4.1 mmol/L 3.5-5.0 AC CA IONZ (test code = 4123461840) 4.50 mg/dL 4.50-5.30 GLUCOSE (test code = 0600356511) 105 mg/dL 70-110 LACTIC ACID (test code = 1486519140) 2.60 mmol/L 0.50-2.20 H Lab Interpretation (test cod e = 87435-0) Abnormal [facility] [id number] 20:34:14* Test Item Value Reference Range Interpretation Comme nts TROPONIN I (test code = 2911744720) 0.008 ng/mL <=0.034 LOUISE (test code = [...] of biotin. Lab Interpretation (test code = 14115-2) Normal [facility] [id number] 20:31:35* Test Item Value Reference Range Interpretation Comme nts NT-proBNP (test code = 59639-2) 188 pg/mL <=125 LOUISE (test code = LOUISE) Result Indeterminate-Consid er causes of NT-proBNP elevation other than Heart failure such as acute coronary syndrome, pulmonary embolism, pulmonary hypertension, sepsis, stroke, and renal dysfunction. Lab Interpretation (test code = 51824-6) Abnormal [facility]. Metabolic Panel (08040)2024-02-08 20:21:10* Test Item Value Reference Range Interpretation Comme nts NA (test code = 6679564088) 135 mmol/L 135-145 K (test code = 7720176193) 4.5 mmol/L 3.5-5.0 CL (test code = 6922752199) 100 mmol/L 98-108 CO2 TOTAL (test code = 7411192763) 22 mmol/L 23-31 L AGAP (test code = 7368635701) 13 2-16 BUN (test code = 2943711722) 8 mg/dL 7-23 GLUCOSE (test code = 9797397735) 97 mg/dL 70-110 CREATININE (test code = 2160-0) 0.65 mg/dL 0.60-1.25 TOTAL BILI (test code = 3222293276) 0.4 mg/dL 0.1-1.1 CALCIUM (test code = 5969574281) 9.4 mg/dL 8.6-10.6 T PROTEIN (test code = 0023871447) 8.2 g/dL 6.3-8.2 ALBUMIN (test code = 9031176852) 4.7 g/dL 3.5-5.0 ALK PHOS (test code = 9303395748) 76 U/L 34-122 ALTv (test code = 1742-6) 33 U/L 5-50 AST(SGOT) (test code = 7511219946) 54 U/L 13-40 H eGFR (test code = 19559-8) 111.3 mL/min/1.73m2 CKD-EPI eGFR (2020). Assuming creatinine has been stable day-to-day for at least three months, the eGFR indicates Category G1 (>= 90 mL/min/1.73 m2) Lab Interpretation (test code = 54734-5) Abnormal [facility]24-[facility] 20:21:10* Test Item Value Reference Range Interpretation Comme nts MAGNESIUM (test code = 7110249031) 2.1 mg/dL 1.7-2.4 Lab Interpretation (test cod e = 97122-1) Normal [facility] 1 [id number] 20:07:21EXAM: XR CHEST 1 VW COMPARISON: 01/14/2024 HISTORY: sob FINDINGS: Lungs: Slightly hyperexpanded lungswith subtle progression of interstitialprominence. Trace pleural effusions could be present. Heart/Mediastinum: Stable cardiomegaly. Bones and soft tissues: No osseous abnormality is visualized.[facility] Cbc with [id number] 20:04:26* Test Item Value Reference Range Interpretation [...] 33.8 g/dL 31.2-35.0 RDW-SD (test code = 03917-1) 50.5 fL 38.5-51.6 RDW-CV (test code = 788-0) 14.3 % 12.1-15.4 PLT (test code = 777-3) 206 150-328 MPV (test code = 53564-8) 9.1 fL 9.8-13.0 L NRBC/100 WBC (test code = 9360598596) 0.0 0.0-10.0 NRBC x10^3 (test code = 1823710508) See_Comment [Automated messa ge] The system which generated this result transmitted reference range: 10*3/?L. The reference range was not used to interpret this result as normal/abnormal. GRAN MAT (NEUT) % (test code = 770-8) 81.0 % IMM GRAN % (test code = 3876990635) 1.20 % LYMPH % (test code = 736-9) 10.9 % MONO % (test code = 5905-5) 6.8 % EOS % (test code = 713-8) 0.0 % BASO % (test code = 706-2) 0.1 % GRAN MAT x10^3(ANC) (test code = 9210435812) 9.31 10*3/uL 1.99-6.95 H IMM GRAN x10^3 (test code = 0202766419) 0.14 10*3/uL 0.00-0.06 H LYMPH x10^3 (test code = 731-0) 1.25 10*3/uL 1.09-3.23 MONO x10^3 (test code = 742-7) 0.78 10*3/uL 0.36-1.02 EOS x10^3 (test code = 711-2) 0.06-0.53 L BASO x10^3 (test code = 704-7) 0.01-0.09 Lab Interpretation (test code = 98436-0) Abnormal [facility] (64520)2023-12-23 04:53:26* Test Item Value Reference Range Interpretation Comme nts NA (test code = 4669502858) 135 mmol/L 135-145 K (test code = 3090947862) 3.2 mmol/L 3.5-5.0 L CL (test code = 6949242504) 104 mmol/L 98-108 CO2 TOTAL (test code = 1727653375) 23 mmol/L 23-31 AGAP (test code = 4177509404) 8 2-16 BUN (test code = 3525180691) 11 mg/dL 7-23 GLUCOSE (test code = 4082721696) 82 mg/dL 70-110 CREATININE (test code = 2160-0) 0.64 mg/dL 0.60-1.25 TOTAL BILI (test code = 7438562110) 0.5 mg/dL 0.1-1.1 CALCIUM (test code = 4509553293) 8.8 mg/dL 8.6-10.6 T PROTEIN (test code = 1554736646) 6.7 g/dL 6.3-8.2 ALBUMIN (test code = 7515652369) 4.1 g/dL 3.5-5.0 ALK PHOS (test code = 1472812323) 46 U/L 34-122 ALTv (test code = 1742-6) 21 U/L 5-50 AST(SGOT) (test code = 3545297792) 43 U/L 13-40 H eGFR (test code = 57931-3) 111.8 mL/min/1.73m2 CKD-EPI eGFR (2020). Assuming creatinine has been stable day-to-day for at least three months, the eGFR indicates Category G1 (>= 90 mL/min/1.73 m2) Lab Interpretation (test code = 26498-2) Abnormal [facility] 04:53:26* Test Item Value Reference Range Interpretation Comme nts LIPASE (test code = 0412542800) 105 U/L 0-220 Lab Interpretation (test cod e = 62691-1) Normal [facility] WITH [id number] 04:34:24* Test Item Value Reference Range Interpretation [...] 33.0 g/dL 31.2-35.0 RDW-SD (test code = 41284-3) 50.9 fL 38.5-51.6 RDW-CV (test code = 788-0) 13.7 % 12.1-15.4 PLT (test code = 777-3) 232 150-328 MPV (test code = 99354-6) 8.7 fL 9.8-13.0 L NRBC/100 WBC (test code = 4471581982) 0.0 0.0-10.0 NRBC x10^3 (test code = 3797755433) See_Comment [Automated Rankomat.pla ge] The system which generated this result transmitted reference range: 10*3/?L. The reference range was not used to interpret this result as normal/abnormal. GRAN MAT (NEUT) % (test code = 770-8) 58.8 % IMM GRAN % (test code = 3762715269) 0.90 % LYMPH % (test code = 736-9) 27.8 % MONO % (test code = 5905-5) 10.5 % EOS % (test code = 713-8) 1.3 % BASO % (test code = 706-2) 0.7 % GRAN MAT x10^3(ANC) (test code = 8075492563) 5.68 10*3/uL 1.99-6.95 IMM GRAN x10^3 (test code = 8886496409) 0.09 10*3/uL 0.00-0.06 H LYMPH x10^3 (test code = 731-0) 2.69 10*3/uL 1.09-3.23 MONO x10^3 (test code = 742-7) 1.02 10*3/uL 0.36-1.02 EOS x10^3 (test code = 711-2) 0.13 10*3/uL 0.06-0.53 BASO x10^3 (test code = 704-7) 0.07 10*3/uL 0.01-0.09 Lab Interpretation (test code = 46297-9) Abnormal [facility] W [id number] 03:32:43Exam: CT Abdomen and Pelvis With Contrast, [...] acute osseous abnormality.Soft tissues: Small fat-containing inguinal hernias.[facility]2024-02-13 02:32:24* Test Item Value Reference Range Interpretation Comme nts ALCOHOL (test code = 0059662857) 117 mg/dL LOUISE (test code = LOUISE) <10 Bteizijn18-081 Toxic>100 Depression of PET CARE ASSISTANT>400 Fatalities Reported [facility] Met[facility] Panel (09018)2023-12-22 02:31:43* Test Item Value Reference Range Interpretation Comme nts NA (test code = 8237843428) 133 mmol/L 135-145 L K (test code = 9555052409) 3.3 mmol/L 3.5-5.0 L CL (test code = 0483470155) 102 mmol/L 98-108 CO2 TOTAL (test code = 4955862275) 25 mmol/L 23-31 AGAP (test code = 8051619170) 6 2-16 BUN (test code = 7866800889) 11 mg/dL 7-23 GLUCOSE (test code = 3811661754) 75 mg/dL 70-110 CREATININE (test code = 9955344754) 0.51 mg/dL 0.60-1.25 L TOTAL BILI (test code = 4839246642) 0.5 mg/dL 0.1-1.1 CALCIUM (test code = 5080982929) 8.9 mg/dL 8.6-10.6 T PROTEIN (test code = 9293455564) 7.2 g/dL 6.3-8.2 ALBUMIN (test code = 9813089653) 4.5 g/dL 3.5-5.0 ALK PHOS (test code = 5378235943) 46 U/L 34-122 ALTv (test code = 1742-6) 15 U/L 5-50 AST(SGOT) (test code = 1983055066) 24 U/L 13-40 eGFR (test code = 02977-5) 119.7 mL/min/1.73m2 CKD-EPI eGFR (2020). Assuming creatinine has been stable day-to-day for at least three months, the eGFR indicates Category G1 (>= 90 mL/min/1.73 m2) Lab Interpretation (test code = 13609-8) Abnormal [facility]24-[facility]13 02:31:43* Test Item Value Reference Range Interpretation Comme nts LIPASE (test code = 2250399528) 121 U/L 0-220 Lab Interpretation (test cod e = 60597-6) Normal [facility] Texas[facility]thrombin Time / [id number] 02:21:02* Test Item Value Reference Range Interpretation Comme nts PROTIME PATIENT (test code = 5964-2) 10.5 10.1-12.6 INR (test code = 6301-6) 0.9 Normal INR <1.1; Warfarin Therapeutic range 2.0 to 3.0 or 2.5 to 3.5, depending upon the indications. Lab Interpretation (test code = 69231-9) Normal [facility] with [id number] 02:14:04* Test Item Value Reference Range Interpretation [...] 34.0 g/dL 31.2-35.0 RDW-SD (test code = 93512-2) 49.1 fL 38.5-51.6 RDW-CV (test code = 788-0) 13.5 % 12.1-15.4 PLT (test code = 777-3) 260 150-328 MPV (test code = 48993-2) 8.7 fL 9.8-13.0 L NRBC/100 WBC (test code = 8262867138) 0.0 0.0-10.0 NRBC x10^3 (test code = 3691039412) See_Comment [Automated messa ge] The system which generated this result transmitted reference range: 10*3/?L. The reference range was not used to interpret this result as normal/abnormal. GRAN MAT (NEUT) % (test code = 770-8) 64.3 % IMM GRAN % (test code = 9284535292) 0.90 % LYMPH % (test code = 736-9) 24.2 % MONO % (test code = 5905-5) 9.1 % EOS % (test code = 713-8) 0.7 % BASO % (test code = 706-2) 0.8 % GRAN MAT x10^3(ANC) (test code = 4549903033) 8.73 10*3/uL 1.99-6.95 H IMM GRAN x10^3 (test code = 3542242460) 0.12 10*3/uL 0.00-0.06 H LYMPH x10^3 (test code = 731-0) 3.28 10*3/uL 1.09-3.23 H MONO x10^3 (test code = 742-7) 1.23 10*3/uL 0.36-1.02 H EOS x10^3 (test code = 711-2) 0.10 10*3/uL 0.06-0.53 BASO x10^3 (test code = 704-7) 0.11 10*3/uL 0.01-0.09 H Lab Interpretation (test code = 53890-9) [facility]19[facility] 10:16:22* Test Item Value Reference Range Interpretation Comments TROPONIN I (test code = 4278478952) 0.007 ng/mL See_Comment [Automated message] The system [...] of biotin. Lab Interpretation (test code = 23581-3) Normal [facility] QGP-ZQK8291-90-14 10:13:01* Test Item Value Reference Range Interpretation Comme nts NT-proBNP (test code = 0191803813) 52 pg/mL See_Comment [Automated message] The system which generated this result transmitted reference range: <=125. The reference range was not used to interpret this result as normal/abnormal. LOUISE (test code = LOUISE) Biotin has been reported to cause a negative bias, interpret results relative to patient's use of biotin. Lab Interpretation (test code = 55831-6) Normal [facility]. METABOLIC PANEL (88466)2022-02-20 10:04:02* Test Item Value Reference Range Interpretation Comme nts NA (test code = 6356296137) 137 mmol/L 135-145 K (test code = 0152064780) 3.6 mmol/L 3.5-5.0 CL (test code = 0697255360) 99 mmol/L 98-108 CO2 TOTAL (test code = 2557681678) 25 mmol/L 23-31 AGAP (test code = 8211180108) 2-16 BUN (test code = 6963863547) 6 mg/dL 7-23 L GLUCOSE (test code = 1943172934) 88 mg/dL 70-110 CREATININE (test code = 7914566289) 0.55 mg/dL 0.60-1.25 L TOTAL BILI (test code = 4078634186) 0.8 mg/dL 0.1-1.1 CALCIUM (test code = 7026342731) 8.9 mg/dL 8.6-10.6 T PROTEIN (test code = 7848835110) 7.5 g/dL 6.3-8.2 ALBUMIN (test code = 3766784161) 4.8 g/dL 3.5-5.0 ALK PHOS (test code = 7589549360) 113 U/L 34-122 ALTv (test code = 1742-6) 84 U/L 5-50 H AST(SGOT) (test code = 1739811849) 107 U/L 13-40 H eGFR (test code = 9375959078) mL/min/1.73m2 LOUISE (test code = LOUISE) Association [...] imaging tests). Lab Interpretation (test code = 71179-4) [facility]normal [facility], JJTJB6713-48-13 10:03:21* Test Item Value Reference Range Interpretation Comme nts LIPASE (test code = 0186579121) 193 U/L 0-220 Lab Interpretation (test cod e = 41617-2) Normal [facility] WITH WIBF0830-79-19 09:39:17* Test Item Value Reference Range Interpretation [...] g/dL 31.2-35.0 H RDW-SD (test code = 86485-8) 44.4 fL 38.5-51.6 RDW-CV (test code = 788-0) 11.9 % 12.1-15.4 L PLT (test code = 777-3) See_Comment [Automated messa ge] The system which generated this result transmitted reference range: 150 - 328 10*3/?L. The reference range was not used to interpret this result as normal/abnormal. MPV (test code = 64141-6) 9.2 fL 9.8-13.0 L NRBC/100 WBC (test code = 9810025192) See_Comment [Automated ftopia ssage] The system which generated this result transmitted reference range: 0.0 - 10.0 /100 WBCs. The reference range was not used to interpret this result as normal/abnormal. NRBC x10^3 (test code = 8419672260) <0.01 See_Comment [Automated messa ge] The system which generated this result transmitted reference range: 10*3/?L. The reference range was not used to interpret this result as normal/abnormal. GRAN MAT (NEUT) % (test code = 770-8) 69.9 % IMM GRAN % (test code = 9249693751) 1.50 % LYMPH % (test code = 736-9) 18.9 % MONO % (test code = 5905-5) 7.0 % EOS % (test code = 713-8) 1.9 % BASO % (test code = 706-2) 0.8 % GRAN MAT x10^3(ANC) (test code = 2135602377) 7.15 10*3/uL 1.99-6.95 H IMM GRAN x10^3 (test code = 2480696064) 0.15 10*3/uL 0.00-0.06 H LYMPH x10^3 (test code = 731-0) 1.93 10*3/uL 1.09-3.23 MONO x10^3 (test code = 742-7) 0.72 10*3/uL 0.36-1.02 EOS x10^3 (test code = 711-2) 0.19 10*3/uL 0.06-0.53 BASO x10^3 (test code = 704-7) 0.08 10*3/uL 0.01-0.09 Lab Interpretation (test code = 07061-6) Abnormal [facility] Notes Date/Time Note Provider Source 2024-02-17 21:43:52 ilV8ZCKLlTxWKlscwVBjWwpqhIWxOSc5gLs Qob0mkFuol4CYkTBHHhI6ecLdsMdW9135-3 02-16T21:43:52 No answer in lobby. 71030-4Edtswahmw department CjnrJO5136-13-54M32:44:07Emergency department NoteTXT1.2.840.115899.1.13.104.2.7. 2.511371|[id number] for patient lkem00987-3LuspGGORLTFTXQHOxnddteay C-CDA narrative qiyu086372116Zjhnnv J Hoot RN[id number] 3VXIOAYRDHDRJKWQNVQFOLC7441-15-19Q7 1:44:071.2.840.498525.1.72.3.15|1.2 .840.560915.1.13.104.2.7.2.727879_2 [id number] Angy Rossi Yue RN [facility] 2024-02-17 21:42:10 XqOnGtsXuZm3tWS1B2Q8IoUziz1z4WrFRmk P9qBG1vq2GfP4y66pignWIm4lwYRA0539-4 02-16T21:42:10 Pt's blood pressure cuff and pulse ox found lying on chair. Called for patient in lobby 2 times, no answer. No one in lobby. 45527-3Njfisnmpd department VxwhBK6860-95-48P93:44:10[facility] NoteTXT1.2.840.500779.1.13.104.2.7. 2.659479|[id number] for patient abpg84762-6FwdqCLGEUDWOZXCPtfmbgsxr C-CDA narrative rgho497449495Ivldy A. Campbell RN[id number] 4AJZUCAPNFNKGJOGAHJCKDY7567-19-75B6 1:44:101.2.840.081507.1.72.3.15|1.2 .840.933981.1.13.104.2.7.2.727879_2 [id number] Sierra Samaniego RN [facility] 2024-02-17 21:41:09 V3NBFMZM+dAqh2Bx4ddssEzzdIdVCQrh+IW gWPe5v87JFfp1k6DVFOdZzR4UDlb11811-6 1:41:09 Pt not in lobby or in room. No answer in lobby. [address]3540-3Ypbeyuwss[address] MohsYK4426-88-59Q09:41:40[facility] NoteTXT1.2.840.555932.1.13.104.2.7. 2.028777|[id number] for patient mbob35139-1DjxaBEYDQKVCSTNZvphahfja C-CDA [address] QhywIdnivtuzkOnifdzpntEFHM328378010 8ONNEAWKDDPDZCFWSFHRJPX9015-06-35X1 1:41:401.2.840.178962.1.72.3.15|1.2 .840.932577.1.13.104.2.7.2.727879_2 [id number] [facility] 2024-02-17 21:14:29 MOp9Lb2hQZSK5T05JP6Frmn8UkZSXG0pUrv Q+UWOxC1HZrZtR8dfV2iRmo/BJCpk2628-5 1:14:29 Pt not in - and no answer in lobby. 42322-3Zycmttftj department DlswXK5203-44-96V75:15:32[facility] NoteTXT1.2.840.379082.1.13.104.2.7. 2.335475|[id number] for patient eudq32694-0McmaZRQWCKXVFGEIehnoeayg C-CDA [address] GggnLdeuwotglXonucyxnlSEMI162875976 2KMSULMKEUXAPXYUKTKTICI1170-23-35R3 1:15:321.2.840.919971.1.72.3.15|1.2 .840.217375.1.13.104.2.7.2.727879_2 [id number] [facility] 2024-02-17 20:48:50 5nP93iGcSYiYx2IHCQwkyKlfK5kjELY2G3L WOa5RmzxJv1SMKY/JJ1/ay2ILXF3d5773-5 02-16T20:48:50 Pt arrives ambulatory to ED c/o SOB, right upper abdominal pain, and left leg and hip pain. Pt states that he has been on prednisone for about 5 yrs which had given him osteoporosis which is causing his leg pain. Reports hx of COPD, o2 is generally @ 91 he says. 50321-5Qrlibbchl department Triage jxskYS6987-26-48C69:53:54[facility] Triage noteTXT1.2.840.320461.1.13.104.2.7. 2.421866|[id number] for patient bzkg05852-7Cksxvugoy department NoteLNNARRATIVEFormatted C-CDA narrative rblf665941027Gqyeipyee [address] StreetTzblVtjwlyixhAjrzogakeLMNO147716717 5VQFOJXRQSIZCHSAFSNBLIL1381-01-01I5 0:53:541.2.840.681925.1.72.3.15|1.2 .840.084093.1.13.104.2.7.2.727879_2 [id number] Leah Lizama RN [facility] 2024-02-08 21:37:56 EMztHcET25mpp0yasaNzmfM72G+ZlkfFHgJ le/SMl8JQ5TJRA5+V70V+vj6T3+ir4120-1 02-07T21:37:56 Pt left AMA 38012-4Grvzguldj department VmirPT2641-55-41O82:38:11[facility] department NoteTXT1.2.840.919880.1.13.104.2.7. 2.097360|2851103109PTUqylghcyl for patient qeen28055-5KovzVLMHTUOEQNKWaowfxkyp C-CDA narrative yesq866150065Ongvu M Martinez RN[address] SprzObapgvvzuWfdnrdyymVTEZ728062940 4FJVYNUDDDBXUQHOOFKFGAY6625-40-12O5 1:38:111.2.840.305259.1.72.3.15|1.2 .840.493396.1.13.104.2.7.2.727879_2 [id number] Kylie Foster RN [facility] 2024-02-08 21:32:00 C411cGecAR/EyAFbuBOXjacvepWMGH8PjnZ 9g/E04BmDtVlaXR8WpQTHNDV0h7wS8938-4 02-07T21:32:00 Patient leaving AMA after self removing [...] ambulatory with steady [place] 25164-6Aqetabgrw department ZpnoLF0778-57-47V90:40:32[facility] department NoteTXT1.2.840.600296.1.13.104.2.7. 2.096267|5838281648HJPbpniftwu for patient ubjc82995-7FehwINXENNNCQHFOftqdbfjo C-CDA narrative [id number] 2GGGIVXBCTEJRBGJAPAOAVC4681-43-55S0 1:40:321.2.840.399480.1.72.3.15|1.2 .840.657911.1.13.104.2.7.2.727879_2 [id number] [facility] 2024-02-08 20:54:38 fV14KdI+iG2Vh3dM2idTDlXj/bCPCdxwEFA JhtCzjkMGkclLJMZTxw1Vb5Wq2Fer2471-0 02-07T20:54:38 Pt states he uses O2 at home, portable O2 is broken 84914-4Rljvaswwm department AgfpQB7073-21-24T75:55:13[facility] department NoteTXT1.2.840.672351.1.13.104.2.7. 2.242619|[id number] for patient wvxv67225-7NicxJOIYFUNJJBXRfdpuqxyk C-CDA narrative [id number] 6GMFZEFNFVBXSMUZOZZMDCK5672-02-90C2 0:55:131.2.840.808573.1.72.3.15|1.2 .840.682435.1.13.104.2.7.2.727879_2 [id number] [facility] 2024-02-08 20:51:11 el/w2YTNZ+vUjzPmyBlltMcm91IE/x7DhYW 81lbSa2kOw3eqlbB7wlJqRv+13oKk9057-7 02-07T20:51:11 Pt ambulates with cane 52157-2Ysxslxsoe department HdwpNQ4426-70-87B53:51:26[facility] department NoteTXT1.2.840.541893.1.13.104.2.7. 2.241117|4541568535ZZUttvwynqa for patient hcxn92103-4EghyOEGABJCOKQBDwvtuwobq C-CDA narrative text[address] NlfdDhedefvptKmgaerwumAIPY996446678 9USPXEVLSVABFDCOBMILEMB9304-44-22K5 0:51:261.2.840.438375.1.72.3.15|1.2 .840.828957.1.13.104.2.7.2.727879_2 [id number] [facility] 2024-02-08 20:43:13 3EeoywjyQPfJbNRZiK552jX/9GbsgI+2tFK wSCRRa/jxCVb/9ffxnwQNTmp/dPDw6126-6 02-07T20:43:13 CC: Pt arrives SOB after leaving [employer] earlier in the shift. He reports he [...] 3 BC powders and drank 3 beers." 42518-9Yckgaahil department Triage bluaJP3085-39-79C62:48:36[facility] department Triage noteTXT1.2.840.429916.1.13.104.2.7. 2.073308|[id number] for patient gjpw76362-5Vutruleqt department NoteLNNARRATIVEFormatted C-CDA narrative fffd900941991Pfepfi Sarika King RNUT[id number] 7LPITELZSLJAKQKZDLCAJXR4449-99-92O6 0:48:361.2.840.378666.1.72.3.15|1.2 .840.083500.1.13.104.2.7.2.727879_2 [id number] Leah Sarika King RN [facility] 2024-02-08 17:04:05 s2Eogme+qBw2GyKZQUdQKLYwhMlQP3vf2D+ vXQOnp/Gafi/Up8AtNk5SOTb9WcHk2108-3 7:04:05 Patient walked to the nurses station and stated "I have another emergency and I have to leave right now. I need this IV taken out immediately."Encouraged patient to stay and he stated "I have to leave immediately and I don't want to take this out myself" IV d/c at this time and patient ambulated out of the department with a steady gait. 41550-3Qvetmnvah department GdyyXO0145-53-91R89:05:22[facility] department NoteTXT1.2.840.091824.1.13.104.2.7. 2.699023|[id number] for patient ttvb84834-2PpzyJNJURJWYJJQSiwkcpsfb C-CDA narrative qcau392217264Lvti M Hayes RNUT[id number] 9RVCXZBTCUMKKXXRHXJQDJZ9627-62-75O3 7:05:221.2.840.149222.1.72.3.15|1.2 .840.663031.1.13.104.2.7.2.727879_2 [id number] Allison Zhang RN [facility] 2024-02-08 14:23:02 rblantGoryGtuRmH8l5fvGk5lY7X/Z3pRfm uswrhKjDYJwQ/pTsGhxTt9YtDldNd6364-2 4:23:02 Pt ambulates with a cane 16107-8Lwepxcjjf department DzzsGO8266-51-36M04:23:12Emergency department NoteTXT1.2.840.086898.1.13.104.2.7. 2.257211|0200709358BVAjvfsfaqe for patient ndlj39661-3GzwfOPBCHDMAIRRHbfxtwtal C-CDA narrative wsyd116029291ZbwkkKylie Foster RN[address] NjzlSvsiatkbeRsnxfbipnUPDQ989216390 4OYRLYFSRQIVJHOREDDMJAP5194-46-37V3 4:23:121.2.840.554043.1.72.3.15|1.2 .840.206219.1.13.104.2.7.2.727879_2 [id number] Kylie Foster RN [facility] 2024-02-08 14:13:15 L1p649/93ZoQE2Go0zqkzrfDlhKWvBcHagw VDctcuSE4UM6R1GwCJf0POfdvBNOs0897-8 4:13:15 Pt has taken 8-packets of BC [...] only thing that helps." Face is flushed. 04393-6Wcaafyiib department Triage oaexNG8151-00-50Y08:17:26[facility] department Triage noteTXT1.2.840.223009.1.13.104.2.7. 2.213295|8837800925RRMjlnrvxoh for patient fohu03861-6Vnjinkvhc department NoteLNNARRATIVEFormatted C-CDA narrative [id number] Fief RNUT[address] PfqvBxwsimgojGaswvgjpkTVVB149826277 7VPNKVKSHTOVMSCAOZCVRDG0354-77-18S0 4:17:261.2.840.677232.1.72.3.15|1.2 .840.741767.1.13.104.2.7.2.727879_2 [id number] Hali Aviles RN [facility] 2024-01-14 06:16:25 1Ixm2MoyTf6Pm0a3pvHVScl4Rs0P/FhSiR0 NL2pOH7lgaqeIad+tNnQ3yWhhllCw8704-6 06:16:25 Pt given printed and verbal discharge [...] w/d, pt leaving in no apparent distress, 97844-9Hbcjjefxs department YljySC6722-30-65U86:17:20[facility] department NoteTXT1.2.840.264035.1.13.104.2.7. 2.594196|8044149163IKOuvchcdto for patient zgrm71449-3TyrgCJXVJXAKJIJVbtueqyoa C-CDA narrative text[address] PdusEllmprrrdGdrxjdeceNRGF359428994 3RXLUUJKNPHBPCLDDQZMQXN9862-44-69A9 6:17:201.2.840.585038.1.72.3.15|1.2 .840.906813.1.13.104.2.7.2.727879_2 [id number] [facility] 2024-01-14 04:49:43 w1BLwliNTSxPu8g0byW1LBMtbz8Mv+E0JFo 1s8HQ8zPr9pliZSvbRgbOr2unKwFj9999-4 01-13T04:49:43 CC: "My COPD is acting up real [...] ext without difficulty, amb with steady gait 66747-8Atmtejrql department Triage ekbbMU6567-50-80D43:55:49[facility] department Triage noteTXT1.2.840.197437.1.13.104.2.7. 2.963961|7149585638IAOrukcshmh for patient quaf13599-8Zhkowdtnz department NoteLNNARRATIVEFormatted C-CDA narrative mlwl325232652Qjraav R Shehadeh RN[address] TxolQstiycnkiBftpimyhwYJUK913265912 9TFDBVSOHYOFIEZFJPKWKYS4602-83-72X1 4:55:491.2.840.203699.1.72.3.15|1.2 .840.577378.1.13.104.2.7.2.727879_2 [id number] Leah King RN [facility] 2024-01-14 04:43:00 Kxg44zaiY5esGVqAsjPnb3e7XyYolz6I4pa djsmrB+8ytx1PlqdnpgXs17wMk0x/04:43:00Associated Order(s): EKG-12 Lead ROUTINE ONCEPre-Procedure Diagnose(s): Chest pain, unspecified typePost-Procedure Diagnose(s): Chest pain, unspecified type [facility] Emergency Department NotePatient Name: Randy BrionesDate of : 1970 53 year old maleTreatment Room: WI1/IC7Meacccd Record Number: [id number] Care Physician: Adrianna King Escorted by: Family [5]Mode of Arrival: Personal means [1]EMS Treatment Prior to ED Arrival:[employer] HEL[employer] treatment: NTGPTA treatment comments: 0.4 mg SL taken [employer]AMEL [employer]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 METABOLIC PANEL (57369) - AbnormalResult Value Ref RangeNA 138 135 [...] 49 (*) 13 - 40 U/LeGFR 93.3 mL/min/1.67o0YJR WITH DIFF - AbnormalWBC 11.59 (*) 4.20 [...] 220 U/LCOVID-19 (ID NOW RAPID TESTING) - XztzqiSMDE-XpY-2 Rapid ID NOW Not Detected Not DetectedETHANOLALCOHOL 62 mg/dLEKG:If EKG completed, see Procedure Note.Orders and Treatments:Orders Placed This EncounterProcedures XR CHEST 1 VW TROPONIN I COMP. METABOLIC PANEL (27826) LIPASE, SERUM CBC WITH DIFF N-Terminal Pro-Bnp Ethanol COVID-19 (ID NOW TESTING) Lab Only COVID Interpretation O2 Per ProtocolOrders Placed This EncounterMedications morpHINE (4 mg/mL) injection 4 mg ondansetron (ZOFRAN (PF)) injection 4 mg ipratropium-albuteroL (DUONEB) 0.5 mg-3 mg(2.5 mg base)/3 mL nebulizer solution 3 mLFirst Provider Eval:ED EventsDate/Time Event User Lybpnlap39/07/24 0510 Medical Screening Begins JAC NAVARRO MD --01/14/24 0510 First Provider Evaluation JAC NAVARRO MD --ED COURSEDiagnosis/Impression as of 01/14/24 0605Chest pain, unspecified typeBronchitisProcedures:EKG-12 Lead ROUTINE ONCEDate/Time: 01/14/2024 5:24 AMPerformed by: Jac Navarro MDAuthorized by: Jac Navarro MDECG interpreted by ED Physician in the absence of a pay clerk: yesPrevious ECG:Previous ECG: Compared to currentSimilarity: No [...] on fileFollow-up:Electronically signed by:Jac Navarro MD01/14/24 0600 97120-4Xfwwdzyga Emergency department TvlnAT4814-09-33G82:00:50Physician Emergency department NoteTXT1.2.840.341538.1.13.104.2.7. 2.691169|[id number] for patient gruf94404-0Swmcnjcht department NoteLNNARRATIVEFormatted C-CDA narrative textUT[id number] 9RSYMZBVHFQHVJLJPWHAIRQ6893-23-45Q6 6:00:501.2.840.883216.1.72.3.15|1.2 .840.233204.1.13.104.2.7.2.727879_2 [id number] [facility] 2023-12-22 23:12:16 OfR1+kiBgkFmrF7LJvZX3tgRDqu0OpLCtE6 zGMcSywodSHHcRoWy12k1VnPeu8jQ3507-7 12-22T23:12:16 Pt given printed and verbal discharge [...] with steady gait, in no apparent distress, 89379-6Vclhenlmz department PwraVX1789-71-47W16:13:50[facility] NoteTXT1.2.840.778919.1.13.104.2.7. 2.636037|0846019499YVTxwdmvaro for patient tslq43747-6KynhZTRAMDVWIRXCjbbakyvd C-CDA narrative [id number] Magaña RNUT[id number] 2RGLFNPWZRQYFLKMDQHBHCU1676-44-27K9 3:13:501.2.840.270288.1.72.3.15|1.2 .840.631111.1.13.104.2.7.2.727879_2 [id number] Mary Juan Alberto Gómez MACHUCA [facility] 2023-12-22 21:41:55 jOVoH2RgbZ54QqZgcpjbgJXcJHTWYGvcJEk jIBYQYzyqapEzyDfuu1h+8+XFH3S66616-1 12-22T21:41:55 Pt arrives ambulatory to ED reporting bleeding with stools and 10/10 abdominal pain. States he was here last night but had to leave before receiving results d/t having to work. Says the pain became worse so he came back in. 10551-0Ejckvufox department Triage mpopBW3053-57-48P06:48:52[facility] department Triage noteTXT1.2.840.143809.1.13.104.2.7. 2.964364|[id number] for patient moqd37076-2Sgqwexcfa department NoteLNNARRATIVEFormatted C-CDA narrative [id number] L Williams RN[address] Nzth[id number] 0BQIWBTESPRICFJAMRPLNCY5901-23-54Q2 1:48:521.2.840.747894.1.72.3.15|1.2 .840.776668.1.13.104.2.7.2.727879_2 [id number] Leah Lizama RN [facility] 2023-12-21 21:31:00 So3RyAnRK+h9AyF0cB/GD9T4Uiup13Jl4q5 11zog+DHoHWDVE8X+raw7Cw9v6k7I2310-2 12-21T21:31:00 Patient leaving AMA,discussed risks of leaving against medical advice, Dr. Maciel aware and notified of patient's decision.Patient encouraged to seek medical attention for any new/prolonged/worsening of symptoms and stressed importance of follow up with a medical provider as soon as possible. AMA form explained, patient signed form.IV d'cd, dressing to site.Patient leaving ambulatory with steady gait, appears in no distress. 03156-5Zseyojkkq department IvngLC6690-43-74Z87:38:39[facility] department NoteTXT1.2.840.667435.1.13.104.2.7. 2.710611|4554163850WUGivyumbyn for patient wnul43301-2SpcxDGDHSTFLYQPGknrzuxgt C-CDA narrative klni202459398SytthMary Magaña RN[address] StreetAoimOjbdsamrqJibjntnjaDAWW044226801 2HCWOTAXJUBGLSXPGKRNKLN1812-73-38A2 1:38:391.2.840.778278.1.72.3.15|1.2 .840.502375.1.13.104.2.7.2.727879_2 [id number] Mary Magaña RN [facility] 2023-12-21 21:30:00 5Pw6Kf+QoxT2RUA47denePzvQpNgJNSVovd 1x3LR+tuRHU9cR1FG86lJK/xtGelR7308-6 12-21T21:30:00 Pt wished to leave AMA. Pt states " yall were wonderful but 3am come real early." 36006-7Pgkxbbqmy department HqkgIH6629-80-68T34:36:58Emergency department NoteTXT1.2.840.469906.1.13.104.2.7. 2.435968|[id number] for patient fuvg35064-6VvgkCHRRFLBKZVWMkaysdnzz C-CDA narrative textUT[address] Foster [id number] 8URFDMLOPSBVTTIWJYHDCVR3903-71-92Q3 1:36:581.2.840.753366.1.72.3.15|1.2 .840.342954.1.13.104.2.7.2.727879_2 [id number] [facility] 2023-12-21 21:26:22 UVudgYaSzhZqrzEI7s8QfVzFqQKAciqXzPK 3EURdA4wLCo8vrn9OUvUA2p8SgKyi3512-9 12-21T21:26:22 Pt asking to go outside and smoke, wants to go home and eat. Pt educated on risks of leaving AMA. Provider informed pt is in pain. 53863-1Mcmefcqdk department QgspPT5125-61-74L22:33:35[facility] NoteTXT1.2.840.742971.1.13.104.2.7. 2.084686|[id number] for patient rums84211-8KidyJFFMGKNVUMHJtqznorlq C-CDA narrative [id number] R Shehadeh RNUT[id number] 9LIUUCFDBYDXWETSKEHYOUL7753-39-35Y3 1:33:351.2.840.087512.1.72.3.15|1.2 .840.391440.1.13.104.2.7.2.727879_2 [id number] Leah King RN [facility] 2023-12-21 19:31:50 7ux9+9bzUPi4KkjpJ6fAL7kKZsKWo9yHclk EzUSasW5spYpHz5jXjNXm7ip+JBbG2477-4 12-21T19:31:50 Pt arrived ambulatory with complaints of bright red rectal bleeding and generalized abdominal pain this afternoon. Pt states his stool was normal consistency but continuous bright red blood. Denies this happening before.Pt is an alcoholic, had 2 beer [employer]. States he vomits all the time but not something new today. 62403-7Ksphzwvcp department Triage njuaYB1874-40-41S23:33:28[facility] Triage noteTXT1.2.840.231594.1.13.104.2.7. 2.011653|[id number] for patient pqih62612-0Nasehmstq department NoteLNNARRATIVEFormatted C-CDA narrative [id number] D Roman RN[address] Oz[id number] 6KJMSXOVGQWQJNATNEUHCIP1244-63-85Q9 9:33:281.2.840.142225.1.72.3.15|1.2 .840.198713.1.13.104.2.7.2.727879_2 [id number] Gabi Esqueda RN [facility] 2023-11-10 20:13:39 sfPhcTKTDi0OyvCJRGz5UdsQ78g/TlPnCn4 [facility]/CY945mY3BYqBbVHd9vffPMorB2987-8 11-10T20:13:39 Pt requesting to leave AMA. ERP notified. Pt counseled to remain, risks of leaving AMA including discussed with pt. Pt continued to decline further ER evaluation at this time. AMA papers signed, witnessed, and placed on patient's chart. Pt left ambulatory. VS stable, no ataxia noted, GCS 15, A&Ox4. 27499-2Fpborwlrq department MainGR2663-53-63E26:13:52[facility] department NoteTXT1.2.840.127471.1.13.104.2.7. 2.182518|[id number] for patient nwyg91243-0GxhxWHJVRQLKNVEOmelqhnas C-CDA narrative [id number] R Goodrich RN[address] Qh[id number] 6WQRNRUKOSGVUANDOSMWNMO0267-80-06E4 0:13:521.2.840.779940.1.72.3.15|1.2 .840.092890.1.13.104.2.7.2.727879_1 [id number] Briseida Medrano RN [facility] 2023-11-10 19:30:29 o2Or5/WyR1d8W0cnb+7HHtdmVtxF/EYpEtf NNIVfmI4PYaJ/fsRv17aAx8JU2z5o4582-2 11-10T19:30:29 Patient arrived to ED c/o SOB and COPD exacerbation. Symptoms started this morning. Patient wears 3L NC at home. Patient is a smoker. Patient states having the chills, diarrhea, and vomiting. States having sharp pains in chest from coughing. 00911-3Pptsoundx department Triage cxvxVH1358-04-80D99:35:27[facility] department Triage noteTXT1.2.840.194434.1.13.104.2.7. 2.347313|[id number] for patient ffkg88364-1Bsmjkyxjt department NoteLNNARRATIVEFormatted C-CDA narrative [id number]-Xfhmd McInnis [address] Lz[id number] 8XMQQELRNICHFYRUOJBYKGQ7819-98-92O3 9:35:271.2.840.103179.1.72.3.15|1.2 .840.883354.1.13.104.2.7.2.727879_1 [id number] Sreedhar Gomez [facility]
[2024-02-18 18:25] LABS: Absolute Lymphocytes (CBC) 0.6 K/uL (0.7-4.9); Absolute Monocytes 0.8 K/uL (0.1-1.3); Absolute Neutrophil 10.6 K/uL (1.8-8.0); Anion Gap 8.9 mEq/L (5.0-15.0); Basophils % 0.3 % (0-1.3); Eosinophils % 0.1 % (0-4.4); Hematocrit 39.4 % (39.6-49.0); Hemoglobin 13.4 g/dL (13.6-17.9); Lymphocytes % 4.8 % (15.3-44.8); MCH 33.3 pg (27.0-35.0); MCV 97.9 fL (80-100); MPV 7.5 fL (7.6-11.3); Monocytes % 6.5 % (3.3-12.3); Neutrophils % 88.3 % (41.7-73.7); Platelets 255 thou/uL (152-406); RBC Red Blood Cell Count 4.03 M/uL (4.33-5.43)
[2024-02-18 18:26] LABS: Potassium 3.9 mEq/L (3.5-5.1)
[2024-02-18] MEDS ORDERED: HYDROMORPHONE HCL 1 MG/ML INJ ONE (19:15)
--- NOTE | 2024-02-18 19:18 | RAD REPORT ---
EXAM DESCRIPTION: CT - Head C Spine Cap W Con - 02/18/2024 7:02 pm CLINICAL HISTORY: Trauma, head and neck injury. Chest, abdomen and pelvis pain. fall, head/neck/rib/back bruising and pain COMPARISON: Head C Spine Mpr Wo Con dated 02/15/2024; Thorax Wo Con dated 02/15/2024; Stone Protocol bette ed 02/14/2024 TECHNIQUE: CT head without contrast. CT cervical spine without contrast with coronal and sagittal reformatted images. CT chest, abdomen and pelvis with coronal and sagittal reformatted images of the spine. All CT scans are performed using dose optimization technique as appropriate and may include automated exposure control or mA/KV adjustment according to patient size. FINDINGS: CT HEAD WITHOUT CONTRAST: No intracranial hemorrhage, hydrocephalus or extra-axial fluid collection. No acute large vascular te rritory infarct. The paranasal sinuses and mastoids are clear. The calvarium is intact. CT CERVICAL SPINE WITHOUT CONTRAST: No fracture or subluxation. The prevertebral soft tissues are normal in thickness. CT CHEST, ABDOMEN, PELVIS: Thorax: Chest Wall: No abnormal mass Lungs: Right middle lobe atelectasis. Pleura: No effusions or pneumothorax. Rhona/Mediastinum: No lymphadenopathy. Aorta/Pulmonary Arteries: Unremarkable Heart: Normal size. Abdomen/Pelvis: Liver: No acute abnormality or suspicious lesions. Biliary: No biliary ductal dilatation. Stomach: No significant focal abnormality. Duodenum: No significant focal abnormality. Pancreas: No significant abnormality. Spleen: No significant abnormality. Adrenal: No suspicious lesions. Kidney/ureter: No hydronephrosis. 3 mm nonobstructing stone left kidney. Retroperitoneum: No retroperitoneal adenopathy. Vascular: No aneurysm. Bowel: No significant focal abnormality. Peritoneum: No ascites or free air. Bladder: Nonspecific circumferential bladder wall thickening. Reproductive: No adnexal masses. Bones: No acute fracture. Other: n/a IMPRESSION: Negative for acute traumatic findings.
[2024-02-18] MEDS ORDERED: ALBUTEROL 2.5 MG/3 ML NEB SOL ONE (19:23)
--- NOTE | 2024-02-18 19:43 | ER ---
Nurse's Notes [facility] Name: Randy Briones Age: 53 yrs Sex: Male : 1970 Arrival Date: 02/18/2024 Time: 16:58 Bed 18 Private MD: Diagnosis: Contusion of lower back and pelvis;Unspecified injury of head, initial encounter;Strain of muscle, fascia and tendon at neck level, initial encounter Presentation: 02/17 17:18 Chief complaint: Patient states: Slipped with socks on last night at 11 PM. Fell back ll1 onto back. Head, back, B hips, and L arm pain since. Bruising to B hips and L arm. SOB noted since fall. Coronavirus screen: Client denies travel out of the [place] in the last 14 days. At this time, the client does not indicate any symptoms associated with coronavirus-19. Ebola Screen: Patient denies travel to an Ebola-affected area in the 21 days before illness onset. Initial Sepsis Screen: Does the patient meet any 2 criteria? No. Patient's initial sepsis screen is negative. Does the patient have a suspected source of infection? No. Patient's initial sepsis screen is negative. Risk Assessment: Do you want to hurt yourself or someone else? Patient reports no desire to harm self or others. Onset of symptoms was February 17, 2024. 17:18 Method Of Arrival: Ambulatory ll1 17:18 Acuity: CANDACE 3 ll1 Triage Assessment: 17:32 General: Appears uncomfortable, Behavior is calm, cooperative, appropriate for age. ll1 Pain: Complains of pain in back and left arm Quality of pain is described as aching. Musculoskeletal: Circulation, motion, and sensation intact. Capillary refill < 3 seconds, Reports pain in back. Historical: - Allergies: 17:23 Lisinopril; ll1 - PMHx: 17:23 Alcoholism; COPD; Hepatitis B (Hypertension); home 02 3LNC PRN; Hypertension; ll1 Osteoporosis; - PSHx: 17:23 Amputation of left index finger; ll1 - Immunization history:: Adult Immunizations up to date. - Infectious Disease History:: Denies. - Social history:: Smoking status: Patient reports the use of cigarette tobacco products, smokes one pack cigarettes per day. - Family history:: not pertinent. - Hospitalizations: : No recent hospitalization is reported. Screenin:20 [facility] ED Fall Risk Assessment (Adult) History of falling in the last 3 months, rv including since admission No falls in past 3 months (0 pts) Score/Fall Risk Level 0 - 2 = Low Risk Oriented to surroundings, Maintained a safe environment, Educated pt \T\ family on fall prevention, incl call for assistance when getting out of bed, Assessed \T\ reinforced patient's understanding of fall precautions. Abuse screen: Denies threats or abuse. Denies injuries from another. Nutritional screening: No deficits noted. Tuberculosis screening: No symptoms or risk factors identified. Primary Survey: 19:21 NO uncontrolled hemorrhage observed. Breathing/Chest: Spontaneous respiratory effort, rv equal unlabored respirations, breath sounds clear bilaterally, regular pattern, symmetrical chest rise and fall. Circulation: No external hemorrhage present. Regular and strong central pulse, skin warm/dry/normal color. Disability Pupils are equal, round, reactive to light and accommodation. Client is alert. Exposure/Environment: A warming method has been applied: A warm blanket has been provided to the patient. Assessment: 19:19 General: Appears uncomfortable, Behavior is calm, cooperative. Pain: Complains of pain rv in back. Neuro: Level of Consciousness is awake, alert, obeys commands, Oriented to person, place, time, situation. Cardiovascular: Capillary refill < 3 seconds Patient's skin is warm and dry. Respiratory: Airway is patent Respiratory effort is even, unlabored. GI: No signs and/or symptoms were reported involving the gastrointestinal system. : No signs and/or symptoms were reported regarding the genitourinary system. Derm: Skin is intact. Vital Signs: 17:18 Pain 10/10; ll1 17:18 BP 181 / 106; Pulse 112; Resp 18; Temp 97.3; Pulse Ox 96% on R/A; Pain 10/10; ll1 19:19 BP 164 / 84; Pulse 88; Resp 20; Pulse Ox 94% on R/A; rv 17:18 Pain Scale: Adult ll1 17:18 Pain Scale: Adult ll1 [place] Coma Score: 19:19 Eye Response: spontaneous(4). Motor Response: obeys commands(6). Verbal Response: rv oriented(5). Total: 15. Trauma Score (Adult): 19:21 Eye Response: spontaneous(1); Verbal Response: oriented(1); Motor Response: obeys rv commands(2); Systolic BP: > 89 mm Hg(4); Respiratory Rate: 10 to 29 per min(4); [place] Score: 15; Trauma Score: 12 ED Course: 17:01 Patient arrived in ED. rg4 17:17 Dheeraj Thibodeaux MD is Attending Physician. rn 17:23 Triage completed. ll1 17:23 Arm band placed on. ll1 17:55 Initial lab(s) drawn, by ED staff, sent to lab. bc6 17:58 Missed attempt(s): 22 gauge in right antecubital area. Bleeding controlled, band aid [id number] applied, catheter tip intact. 18:02 Inserted saline lock: 22 gauge in right forearm, using aseptic technique. bc6 18:22 Basic Metabolic Panel Sent. bc6 18:22 CBC with Diff Sent. bc6 19:04 CT Traumagram (Head C Spine CAP W Con) In Process Unspecified. EDMS 19:14 Darrius Nayak RN is Primary Nurse. rv 19:20 Patient has correct armband on for positive identification. Client placed on continuous rv cardiac and pulse oximetry monitoring. NIBP monitoring applied. 19:20 No provider procedures requiring assistance completed. rv 19:48 IV discontinued, intact, bleeding controlled, No redness/swelling at site. Pressure rv dressing applied. Administered Medications: 19:18 Drug: HYDROmorphone IVP 1 mg IVP once Route: IVP; Site: right forearm; rv 19:47 Follow up: Response: No adverse reaction; Marked relief of symptoms rv 19:33 Drug: Albuterol Inhalation 2.5 mg Inhalation once Route: Inhalation; rv 19:47 Follow up: Response: No adverse reaction; Marked relief of symptoms rv Medication: 19:20 VIS not applicable for this client. rv Outcome: 19:42 Discharge ordered by . rn 19:47 Discharged to home ambulatory, rv 19:47 Condition: improved 19:47 Discharge instructions given to patient, Instructed on discharge instructions, follow up and referral plans. medication usage, Demonstrated understanding of instructions, follow-up care, medications, Prescriptions given X 1, 19:48 Patient left the ED. rv Signatures: Dispatcher [employer] EDMS Dheeraj Thibodeaux MD MD rn Garcia, Rubi rg4 Darrius Nayak RN RN rv Lewis, Lynsay, RN RN ll1 Klarissa Batista bc6 Roshan Donato [id number]
--- NOTE | 2024-02-18 19:43 | EDPHYS ---
Physician Documentation [facility] Name: Randy Briones Age: 53 yrs Sex: Male : 1970 Arrival Date: 02/18/2024 Time: 16:58 Bed 18 Private MD: ED Physician Dheeraj Thibodeaux HPI: 02/17 17:24 This 53 yrs old Male presents to ER via Ambulatory with complaints of Fall Injury. rn 17:24 Details of fall: The patient fell from an upright position. Onset: The symptoms/episode rn began/occurred yesterday. Associated injuries: The patient sustained injury to the head, neck injury, upper back injury, injury to the chest. Severity of symptoms: At their worst the symptoms were mild, in the emergency department the symptoms are unchanged. The patient has experienced similar episodes in the past. Patient reports fall from standing yesterday, slipped on hardwood floor, hit back of head, reports pain to head neck/mid and lower back/posterior ribs. No LOC. Patient reports chronic abdominal pain but worse today after falling yesterday. Historical: - Allergies: 17:23 Lisinopril; ll1 - PMHx: 17:23 Alcoholism; COPD; Hepatitis B (Hypertension); home 02 3LNC PRN; Hypertension; ll1 Osteoporosis; - PSHx: 17:23 Amputation of left index finger; ll1 - Immunization history:: Adult Immunizations up to date. - Infectious Disease History:: Denies. - Social history:: Smoking status: Patient reports the use of cigarette tobacco products, smokes one pack cigarettes per day. - Family history:: not pertinent. - Hospitalizations: : No recent hospitalization is reported. ROS: 17:24 Constitutional: Negative for fever, chills, and weight loss, Cardiovascular: Positive rn for posterior thoracic pain Respiratory: Negative for shortness of breath, cough, wheezing, and pleuritic chest pain, Abdomen/GI: Positive for abdominal pain Back: Positive for back pain MS/Extremity: Negative for injury and deformity, Skin: Positive for bruising to flanks Neuro: Negative for weakness, numbness, tingling, and seizure, Exam: 19:40 Constitutional: This is a well developed, well nourished patient who is awake, alert, rn and in no acute distress. Head/Face: Normocephalic, atraumatic. Neck: No midline cervical tenderness Chest/axilla: Normal chest wall appearance and motion. No crepitus Cardiovascular: Regular rate and rhythm. No pulse deficits. Respiratory: Mild tachypnea with wheezing Abdomen/GI: Soft, non-tender Back: No spinal tenderness. Bilateral flank ecchymosis Neuro: Awake and alert, GCS 15, oriented to person, place, time, and situation. Cranial nerves II-XII grossly intact. Motor strength 5/5 in all extremities. Sensory grossly intact. Cerebellar exam normal. Normal gait. Vital Signs: 17:18 Pain 10/10; ll1 17:18 BP 181 / 106; Pulse 112; Resp 18; Temp 97.3; Pulse Ox 96% on R/A; Pain 10/10; ll1 19:19 BP 164 / 84; Pulse 88; Resp 20; Pulse Ox 94% on R/A; rv 17:18 Pain Scale: Adult ll1 17:18 Pain Scale: Adult ll1 [place] Coma Score: 19:19 Eye Response: spontaneous(4). Motor Response: obeys commands(6). Verbal Response: rv oriented(5). Total: 15. Trauma Score (Adult): 19:21 Eye Response: spontaneous(1); Verbal Response: oriented(1); Motor Response: obeys rv commands(2); Systolic BP: > 89 mm Hg(4); Respiratory Rate: 10 to 29 per min(4); [place] Score: 15; Trauma Score: 12 MDM: 17:17 Patient medically screened. rn 19:40 Differential diagnosis: closed head injury, contusion, fracture, sprain, strain. Data rn reviewed: vital signs, nurses notes, lab test result(s), radiologic studies, CT scan, and as a result, I will discharge patient. Counseling: I had a detailed discussion with the patient and/or guardian regarding the historical points, exam findings, and any diagnostic results supporting the discharge/admit diagnosis, lab results, radiology results, the need for outpatient follow up, to return to the emergency department if symptoms worsen or persist or if there are any questions or concerns that arise at home. Response to treatment: the patient's symptoms have markedly improved after treatment, and as a result, I will discharge patient. Special discussion: I discussed with the patient/guardian in detail that at this point there is no indication for admission to the hospital. It is understood, however, that if the symptoms persist or worsen the patient needs to return immediately for re-evaluation. ED course: No acute traumatic findings and workup. I have personally reviewed all of the results, including but not limited to blood tests and imaging deemed necessary to safely discharge this patient at this time. All results given to and printed out for patient. I personally went over all the results with the patient and answered all questions. Patient will follow-up with PCP and or specialist as discussed. Return precautions given and understood.. 02/17 17:20 Order name: Basic Metabolic Panel; Complete Time: 18:48 rn 02/17 17:20 Order name: CBC with Diff; Complete Time: 18:48 rn 02/17 17:20 Order name: CT Traumagram (Head C Spine CAP W Con); Complete Time: 19:40 rn 02/17 17:20 Order name: Labs collected and sent; Complete Time: 18:22 rn Administered Medications: 19:18 Drug: HYDROmorphone IVP 1 mg IVP once Route: IVP; Site: right forearm; rv 19:47 Follow up: Response: No adverse reaction; Marked relief of symptoms rv 19:33 Drug: Albuterol Inhalation 2.5 mg Inhalation once Route: Inhalation; rv 19:47 Follow up: Response: No adverse reaction; Marked relief of symptoms rv Disposition Summary: 02/18/24 19:42 Discharge Ordered Notes: Location: Home rn Problem: new rn Symptoms: have improved rn Condition: Stable rn Diagnosis - Contusion of lower back and pelvis rn - Unspecified injury of head, initial encounter rn - Strain of muscle, fascia and tendon at neck level, initial encounter rn Followup: rn - With: Private Physician - When: As needed - Reason: Recheck today's complaints, Re-evaluation by your physician Discharge Instructions: - Discharge Summary Sheet rn - Contusion rn - Head Injury, Adult rn - Hematoma rn Forms: - Medication Reconciliation Form rn - Thank You Letter rn - Antibiotic medical assistant internal medicine - Prescription Opioid Use rn - Patient Portal Instructions rn - Leadership Thank You Letter rn Prescriptions: - Albuterol Sulfate 2.5 mg /3 mL (0.083 %) Inhalation Solution for Nebulization - inhale 1 unit NEBULIZATION route every 8 hours As needed Please dispense rn nebulizer machine as well; 1 Kit; Refills: 0, Product Selection Permitted Signatures: Dispatcher [employer] EDMS Dheeraj Thibodeaux MD MD rn Vicente, Ronaldo RN RN Estella Garay RN RN ll1 Corrections: (The following items were deleted from the chart) 17:21 17:21 Head C Spine CAP W Con+CT.RAD.BRZ ordered. EDMS EDMS
[2024-02-18 22:41] VITALS: BP 164/84; TEMP 97.3; O2SAT 94
== END 2024-02-18 19:48 | disposition home or self-care (01) ==
LOC: ER 16:58
DX: S16.1XXA Strain of muscle, fascia and tendon at neck level, initial encounter (principal); S30.0XXA Contusion of lower back and pelvis, initial encounter; S09.90XA Unspecified injury of head, initial encounter; W01.0XXA Fall on same level from slipping, tripping and stumbling without subsequent striking against object, initial encounter; F17.210 Nicotine dependence, cigarettes, uncomplicated; F10.20 Alcohol dependence, uncomplicated; J44.9 Chronic obstructive pulmonary disease, unspecified; Z99.81 Dependence on supplemental oxygen; Z88.8 Allergy status to other drugs, medicaments and biological substances
CPT/HCPCS: 85025; 80048; 36415; 70450; 72125; 71260; 74177; 96374; 99285; Q9967; J7613; J1170

== ENCOUNTER 2024-02-22 20:33 | Emergency (ER) | payer OTHER ==
--- OUTSIDE RECORDS SUMMARY | 2024-02-22 20:39 | XMS REPORT | Continuity of Care Document ---
Author Name Unknown Address [address] [facility] [address] [place] [address] [facility] Address [address] [facility] [address] [place] [address] Care Team Providers Care Expert Witness Name Role Phone ADRIANNA LOPEZ Primary Care Physician Unavailab PEG Mason Attending Clinician Unavailable Peg Pinon NP Attending Clinician + [phone] DEMETRIA DAVENPORT Attending Clinician Unav ailable Demetria Davenport MD Attending Clinician + Christina Victoria Attending Clinician [phone] JAC NAVARRO Attending Clinician Unavailable Jac Navarro MD Attending Clinician [phone] TYLER ROWE Attending Clinician Unavailab MELINDA Boothe Attending Clinician Unavailable Melinda Maciel DO Attending Clinician [phone] CHRISTY HOLLIDAY Attending Clinician Unavailable Christy Holliday [...] Expirati on Date Source [facility] [id number] 2023 00:00:00 2024 00:00:00 [employer] [id number] 2023 00:00:00 [employer] 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 94 ON 9 [id number] 2023 00:00:00 Problems Condition Name Condition Details Condition Category Status Onset Date Resolution Date Last Treatment Date Treating Clinician Comments Source Acute exacerbati on of chronic obstructiv e pulmonary disease (COPD) Acute exacerbati on of chronic obstructiv e pulmonary disease (COPD) Disease Active 03-24 00:00: 00 [facility] Obesity (BMI 30-39.9) Obesity (BMI 30-39.9) Disease Active 03-24 00:00: 00 [facility] Allergies, Adverse Reactions, Alerts Allergy Name Allergy Type Status Severity Reaction(s) Onset Date Inactive Date Treating Clinician Comments Source Lisinopr il Propensi ty to adverse reaction s Active Anaphylaxis 03-24 00:00: 00 [facility] LISINOPR [place] DRUG INGREDI Active Anaphylaxis 03-24 00:00: 00 [facility] Social History Social Habit Start Date Stop Date Quantity Comments Source History of tobacco use Smokes tobacco daily [facility] of Social function 2024-02-08 00:00:00 2024-02-08 00:00:00 [facility] Alcohol intake 2024-02-08 00:00:00 2024-02-08 00:00:00 4.29 /d [facility] Exposure to SARS-CoV-2 (event) 2022-10-04 00:00:00 2022-10-14 10:25:00 Not sure [facility] Tobacco use and exposure 2018-03-24 00:00:00 2018-03-24 00:00:00 User of smokeless tobacco [facility] Tobacco Comment 2018-03-24 00:00:00 2018-03-24 00:00:00 trying to quit [facility] Sex Assigned At 1970 00:00:00 1970 00:00:00 [facility] Smoking Status Start Date Stop Date Source Smokes tobacco daily 2018-03-24 00:00:00 [facility] Medications Ordered Medication Name Filled Medication Name Start Date Stop Date Current Medication? Ordering Clinician Indication Dosage Frequency Signature (SIG) Comments Components Source ketorolac (TORADOL) injection 30 mg 02-17 03:15: 00 02-17 15:14 :00 Yes 30mg 30 mg, Slow IV Push, ONCE, 1 dose, On Thu02/17/24 at 2215, Routine [facility] methylpredn isolone sod succ (SOLU-MEDRO L) injection 125 mg 02-17 03:00: 00 02-17 14:59 :00 Yes 125mg 125 mg, Intravenou s, ONCE, 1 dose, On Thu02/17/24 at 2200, 2 mL [facility] ipratropium -albuteroL (DUONEB) 0.5 mg-3 mg(2.5 mg base)/3 mL nebulizer solution 6 mL 02-17 03:00: 00 02-17 14:59 :00 Yes 6mL 6 mL, Inhalation , ONCE NOW, 1 dose, On Thu02/17/24 at 2200, Routine [facility] NaCl 0.9% (NS) bolus infusion 1,000 mL 02-17 03:00: 00 02-17 14:59 :00 Yes 1000mL at 999 mL/hr, 1,000 mL, IV Infusion, ONCE, 1 dose, On Thu02/17/24 at 2200, LAURYN [facility] triamterene -hydrochlor othiazide 37.5-25 mg per capsule 02-16 20:52: 37 02-16 00:00 :00 No 1{capsu le} Take 1 capsule by mouth every morning. [facility] albuterol 5 mg/mL nebulizer solution 02-16 20:51: 42 02-16 00:00 :00 No 2.5mg Inhale 2.5 mg every 6 (six) hours as needed for Wheezing or Shortness of Breath. [facility] ketorolac (TORADOL) injection 15 mg 02-08 03:00: 00 02-08 02:21 :00 No 15mg 15 mg, Slow IV Push, ONCE, 1 dose, On Thu02/08/24 at 2200, Routine [facility] iopamidol (ISOVUE 370-500 mL) injection 100 mL 02-07 22:30: 00 02-07 22:30 :00 Yes [id number] 100mL 100 mL, Intravenou s, ONCE, 1 dose, On Thu02/08/24 at 1730, Routine [facility] ipratropium -albuteroL (DUONEB) 0.5 mg-3 mg(2.5 mg base)/3 mL nebulizer solution 3 mL 02-07 21:15: 00 02-07 20:45 :00 No 3mL 3 mL, Inhalation , ONCE, 1 dose, On Thu02/08/24 at 1615, Routine [facility] morpHINE (2 mg/mL) injection 4 mg 02-07 21:15: 02-07 20:27 :00 No 4mg 4 mg, Slow IV Push, ONCE, 1 dose, On Thu02/08/24 at 1615, STAT [facility] ondansetron (ZOFRAN (PF)) injection 4 mg 02-07 21:15: 00 02-07 20:22 :00 No 4mg 4 mg, Slow IV Push, ONCE, 1 dose, On Thu02/08/24 at 1615, LAURYN [facility] magnesium sulfate in water 2 gram/50 mL (4 %) infusion 2 g 02-07 21:00: 00 02-07 21:30 :00 No 2g 2 g, IV Piggyback, Administer over 60 Minutes, ONCE, 1 dose, On Thu02/08/24 at 1600, Routine [facility] ipratropium -albuteroL (DUONEB) 0.5 mg-3 mg(2.5 mg base)/3 mL nebulizer solution 3 mL 02-07 20:30: 00 02-07 19:31 :00 No 3mL 3 mL, Inhalation , ONCE, 1 dose, On Thu02/08/24 at 1530, Routine [facility] HYDROcodone -acetaminop hen (NORCO) 10-325 mg tablet 1 tablet 01-13 13:15: 00 01-13 12:15 :00 No 1{tbl} 1 tablet, Oral, ONCE, 1 dose, On Kym 01/14/24 at 0715, [facility] ipratropium -albuteroL (DUONEB) 0.5 mg-3 mg(2.5 mg base)/3 mL nebulizer solution 3 mL 01-13 13:00: 00 01-13 11:53 :00 No 3mL 3 mL, Inhalation , ONCE NOW, 1 dose, On Thu01/14/24 at 0700, [facility] ondansetron (ZOFRAN (PF)) injection 4 mg 01-13 11:30: 00 01-13 11:37 :00 No 4mg 4 mg, Slow IV Push, ONCE, 1 dose, On Thu01/14/24 at 0530, [facility] morpHINE (4 mg/mL) injection 4 mg 01-13 11:30: 00 01-13 11:37 :00 No 4mg 4 mg, Slow IV Push, ONCE, 1 dose, On Thu01/14/24 at 0530, STAT [facility] azithromyci n (ZITHROMAX Z-PORTER) 250 mg tablet 01-13 00:00: 00 02-16 00:00 :00 No [id number] Take 500 mg on day 1 then 250 mg on days 2-5 [facility] predniSONE 20 mg tablet 3-07 00:00: 00 02-16 00:00 :00 No [id number] Take 1 po tid x 2 days, then take 1 po bid x 3 days, then take 1 po daily x 3 days. [facility] acetaminoph en-codeine 300-30 mg tablet 3-07 00:00: 00 01-21 04:59 :00 Yes [id number] 1{tbl} Take 1 tablet by mouth every 6 (six) hours as needed for Pain (scale 7-10) (severe cough) for up to 7 days. Indication s: acute pain, severe cough [facility] clonazePAM 1 mg tablet 12-26 00:00: 00 02-16 00:00 :00 No 1mg Take 1 tablet by mouth at bedtime as needed for Other (anxiety). [facility] KCL (KLOR-CON M20) tablet 40 mEq 12-23 05:00: 00 12-23 05:07 :00 No 40meq 40 mEq, Oral, ONCE, 1 dose, On Thu12/22/23 at 2300, [facility] NaCl 0.9% (NS) bolus infusion 1,000 mL 12-23 05:00: 00 12-23 05:09 :00 No 1000mL at 999 mL/hr, 1,000 mL, IV Infusion, ONCE, 1 dose, On Thu12/22/23 at 2300, [facility] ondansetron (ZOFRAN (PF)) injection 4 mg 12-23 04:30: 00 12-23 04:24 :00 No 4mg 4 mg, Slow IV Push, ONCE, 1 dose, On Thu12/22/23 at 2230, [facility] maalox:diph enhydrAMINE :lidocaine 2 % viscous 1:1:1 ([facility]) oral suspension 15 mL 12-23 04:15: 00 12-23 04:17 :00 No 15mL 15 mL, Oral, ONCE, 1 dose, On Thu12/22/23 at 2215, Routine [facility] famotidine (PEPCID (PF)) injection 20 mg 12-23 04:15: 00 12-23 04:15 :00 No 20mg 20 mg, Slow IV Push, ONCE, 1 dose, On Thu12/22/23 at 2215, LAURYN [facility] HYDROcodone -acetaminop hen (NORCO) 10-325 mg tablet 1 tablet 12-22 04:30: 00 12-22 16:29 :00 Yes 1{tbl} 1 tablet, Oral, ONCE, 1 dose, On Thu12/21/23 at 2230, Routine [facility] pantoprazol e (PROTONIX) 80 mg in NaCl 0.9% (NS) 20 mL syringe 12-22 04:15: 00 12-22 16:14 :00 Yes 80mg 80 mg, IV Push, ONCE, 1 dose, On Thu12/21/23 at 2215, Administer over 2 Minutes, 20 mL [facility] iopamidol (ISOVUE 370-500 mL) injection 100 mL 12-22 03:30: 00 12-22 03:30 :00 No [id number] 100mL 100 mL, Intravenou s, ONCE, 1 dose, On Thu12/21/23 at 2130, Routine [facility] morpHINE (4 mg/mL) injection 4 mg 12-22 03:30: 00 12-22 02:16 :00 No 4mg 4 mg, Slow IV Push, ONCE, 1 dose, On Thu12/21/23 at 2130, Routine [facility] ondansetron (ZOFRAN (PF)) injection 4 mg 12-22 02:45: 00 12-22 02:02 :00 No 4mg 4 mg, Slow IV Push, ONCE, 1 dose, On Thu12/21/23 at 2045, Routine [facility] hydrocortis one 25 mg suppository 12-22 00:00: 00 Yes [id number] 25mg Insert 1 Suppositor y into rectum 2 (two) times daily as needed for Rectal itching/pa in. [facility] ondansetron 4 mg disintegrat ing tablet 12-22 00:00: 00 02-16 00:00 :00 No [id number] 4mg Take 1 tablet by mouth every 8 (eight) hours as needed for Nausea and Vomiting (N/V). [facility] amoxicillin -clavulanat e 875-125 mg per tablet 12-22 00:00: 00 01-02 05:59 :00 Yes [id number] 1{tbl} Take 1 tablet by mouth every 12 (twelve) hours for 10 days. [facility] methylpredn isolone sod succ (SOLU-MEDRO L) injection 125 mg 2022-11 08:45: 00 10-27 20:44 :00 No 125mg 125 mg, Slow IV Push, ONCE, 1 dose, On Thu10/27/23 at 0245, STAT [facility] ipratropium -albuteroL (DUONEB) 0.5 mg-3 mg(2.5 mg base)/3 mL nebulizer solution 3 mL 2022-11 08:45: 00 10-27 20:44 :00 No 3mL 3 mL, Inhalation , ONCE NOW, 1 dose, On Thu10/27/23 at 0245, LAURYN [facility] diazePAM (VALIUM) tablet 10 mg 2022-11 07:45: 00 10-27 19:44 :00 No 10mg 10 mg, Oral, ONCE, 1 dose, On Thu10/27/23 at 0145, LAURYN [facility] levoFLOXaci n (LEVAQUIN) tablet 500 mg 2022-11 07:45: 00 10-27 19:44 :00 No 500mg 500 mg, Oral, ONCE, 1 dose, On Thu10/27/23 at 0145, LAURYN
Re ason for Anti-Infec tive: Empiric Non-Surgic al Prophylaxi s
Durat ion of therapy: Once (ED) [facility] iopamidol (ISOVUE 370-500 mL) injection 70 mL 2021-11 18:30: 00 10-14 18:30 :00 No [id number] 70mL 70 mL, Intravenou s, ONCE, 1 dose, On Thu10/14/22 at 1230, Routine [facility] methylpredn isolone sod succ (SOLU-MEDRO L) injection 125 mg 2021-11 18:00: 00 Yes 125mg 125 mg, Intravenou s, Q6H, First dose on Thu10/14/22 at 1200, Until Discontinu ed, Routine [facility] furosemide (LASIX) injection 40 mg 2021-11 17:45: 00 10-14 16:39 :00 No 40mg 40 mg, IV Push, ONCE, 1 dose, On Thu10/14/22 at 1145, LAURYN [facility] ipratropium -albuteroL (DUONEB) 0.5 mg-3 mg(2.5 mg base)/3 mL nebulizer solution 3 mL 2021-11 17:30: 00 10-14 16:41 :00 No 3mL 3 mL, Inhalation , ONCE, 1 dose, On Thu10/14/22 at 1130, Routine [facility] FENTanyl PF (SUBLIMAZE (PF)) injection 50 mcg 2021-11 16:45: 00 10-14 16:39 :00 No 50ug 50 mcg, Slow IV Push, ONCE, 1 dose, On Thu10/14/22 at 1045, Routine [facility] levoFLOXaci n 750 mg tablet 2021-11 00:00: 00 02-16 00:00 :00 No [id number] 750mg Take 1 tablet by mouth every 24 (twenty-fo ur) hours. [facility] HYDROcodone -acetaminop hen (NORCO) 10-325 mg tablet 1 tablet 03-12 12:15: 00 03-12 11:21 :00 No 1{tbl} 1 tablet, Oral, ONCE, 1 dose, On Thu03/12/22 at 0715, Routine [facility] HYDROcodone -acetaminop hen 10-325 mg tablet 03-12 00:00: 00 03-20 04:59 :00 No [id number] 1{tbl} Take 1 tablet by mouth every 6 (six) hours as needed for Pain (scale 7-10) for up to 7 days. Indication s: acute pain [facility] ipratropium -albuteroL (DUONEB) 0.5 mg-3 mg(2.5 mg base)/3 mL nebulizer solution 3 mL 02-20 13:00: 00 Yes 3mL 3 mL, Inhalation , QID, First dose on Thu02/20/22 at 0800, Until Discontinu ed, Routine [facility] methylPREDN ISolone sod succ (SOLU-MEDRO L (PF)) injection 40 mg 02-20 11:45: 00 02-20 10:43 :00 No 40mg 40 mg, Intravenou s, ONCE, 1 dose, On Thu02/20/22 at 0645, STAT [facility] foLIC acid (FOLATE) tablet 1 mg 02-20 11:45: 00 02-20 10:41 :00 No 1mg 1 mg, Oral, ONCE, 1 dose, On Thu02/20/22 at 0645, LAURYN [facility] thiamine (VITAMIN B1) injection 100 mg 02-20 11:45: 00 02-20 10:43 :00 No 100mg 100 mg, Intravenou s, ONCE, 1 dose, On Thu02/20/22 at 0645, LAURYN [facility] LORazepam (ATIVAN) injection 2 mg 02-20 11:45: 00 02-20 10:42 :00 No 2mg 2 mg, Slow IV Push, ONCE, 1 dose, On Thu02/20/22 at 0645, STAT [facility] ipratropium -albuteroL (DUONEB) 0.5 mg-3 mg(2.5 mg base)/3 mL nebulizer solution 3 mL 02-20 10:30: 00 02-20 09:34 :00 No 3mL 3 mL, Inhalation , ONCE, 1 dose, On [facility] 02/20/22 at 0530, Routine [facility] albuterol 90 mcg/actuati on inhaler 02-20 00:00: 00 Yes [id number] 2{puff} Inhale 2 Puffs every 4 (four) hours as needed for Wheezing or Shortness of Breath. [facility] triamterene -hydrochlor othiazid 37.5-25 mg tablet 02-20 00:00: 00 Yes [id number] 1{tbl} Take 1 tablet by mouth daily. [facility] chlordiazeP OXIDE 25 mg capsule 02-20 00:00: 00 Yes [id number] 25mg Take 1 capsule by mouth every 6 (six) hours as needed for Anxiety, Agitation, Heart Rate => 100 or Detox. [facility] predniSONE 10 mg tablet 02-20 00:00: 00 02-16 00:00 :00 No [id number] TAKE ONE TABLET BY MOUTH DAILY [facility] albuterol 2.5 mg /3 mL (0.083 %) nebulizer solution 02-20 00:00: 00 02-16 00:00 :00 No [id number] 2.5mg Inhale 3 mL every 4 (four) hours. May also nebulize one extra every 6 hours. [facility] budesonide- formoteroL 160-4.5 mcg/actuati on inhaler 02-20 00:00: 00 02-16 00:00 :00 No [id number] 2{puff} Inhale 2 Puffs 2 (two) times daily. [facility] albuterol 5 mg/mL nebulizer solution 07-16 14:02: 20 Yes 2.5mg Inhale 2.5 mg every 6 (six) hours as needed for Wheezing or Shortness of Breath. [facility] budesonide- formoterol 160-4.5 mcg/actuati on inhaler 07-16 00:00: 00 Yes 2{puff} Inhale 2 Puffs 2 (two) times daily. [facility] albuterol 2.5 mg /3 mL (0.083 %) nebulizer solution 07-16 00:00: 00 Yes 2.5mg Inhale 3 mL every 4 (four) hours as needed for Wheezing or Shortness of Breath. [facility] triamterene -hydrochlor othiazide 37.5-25 mg per capsule 03-26 16:32: 14 Yes 1{capsu le} Take 1 capsule by mouth every morning. [facility] amLODIPine 10 mg tablet 03-26 16:32: 14 Yes 10mg Take 10 mg by mouth at bedtime. [facility] gabapentin 100 mg capsule 03-26 16:32: 14 Yes 100mg Take 100 mg by mouth 2 (two) times daily as needed (MSK pain). [facility] foLIC acid 1 mg tablet 03-26 16:32: 14 Yes 1mg Take 1 mg by mouth daily. [facility] budesonide- formoterol 160-4.5 mcg/actuati on inhaler 03-26 00:00: 00 02-16 00:00 :00 No 2{puff} Inhale 2 Puffs 2 (two) times daily. [facility] Immunizations Ordered Immunization Name Filled Immunization Name Date Status Comments Source SARS-COV-2 COVID-19 PFIZER VACCINE 2021-02-03 00:00:00 Completed [facility] SARS-COV-2 COVID-19 PFIZER VACCINE 2021-02-03 00:00:00 Completed [facility] SARS-COV-2 COVID-19 PFIZER VACCINE 2021-02-03 00:00:00 Completed [facility] SARS-COV-2 COVID-19 PFIZER VACCINE 2021-01-13 00:00:00 Completed [facility] SARS-COV-2 COVID-19 PFIZER VACCINE 2021-01-13 00:00:00 Completed [facility] SARS-COV-2 COVID-19 PFIZER VACCINE 2021-01-13 00:00:00 Completed [facility] Pneumococcal Polysaccharide, PPSV23 (PNEUMOVAX) 2018-03-26 00:00:00 Completed [facility] Influenza Virus Vaccine Quad IM 3+ YRS 2018-03-26 00:00:00 Completed [facility] Pneumococcal Polysaccharide, PPSV23 (PNEUMOVAX) 2018-03-26 00:00:00 Completed [facility] Influenza Virus Vaccine Quad IM 3+ YRS 2018-03-26 00:00:00 Completed [facility] Pneumococcal Polysaccharide, PPSV23 (PNEUMOVAX) 2018-03-26 00:00:00 Completed [facility] Influenza Virus Vaccine Quad IM 3+ YRS 2018-03-26 00:00:00 Completed [facility] Pneumococcal Polysaccharide, PPSV23 (PNEUMOVAX) [facility] Influenza Virus Vaccine Quad IM 3+ YRS Unknown Completed [facility] SARS-COV-2 COVID-19 PFIZER VACCINE Unknown Completed [facility] SARS-COV-2 COVID-19 PFIZER VACCINE Unknown Completed [facility] Pneumococcal Polysaccharide, PPSV23 (PNEUMOVAX) Unknown [facility] Influenza Virus Vaccine Quad IM 3+ YRS Unknown Completed [facility] SARS-COV-2 COVID-19 PFIZER VACCINE Unknown Completed [facility] SARS-COV-2 COVID-19 PFIZER VACCINE Unknown Completed [facility] Pneumococcal Polysaccharide, PPSV23 (PNEUMOVAX) Unknown [facility] Influenza Virus Vaccine Quad IM 3+ YRS Unknown Completed [facility] SARS-COV-2 COVID-19 PFIZER VACCINE Unknown Completed [facility] SARS-COV-2 COVID-19 PFIZER VACCINE Unknown Completed [facility] Pneumococcal Polysaccharide, PPSV23 (PNEUMOVAX) Unknown Completed [facility] Influenza Virus Vaccine Quad IM 3+ YRS Unknown Completed [facility] SARS-COV-2 COVID-19 PFIZER VACCINE Unknown Completed [facility] SARS-COV-2 COVID-19 PFIZER VACCINE Unknown Completed [facility] Pneumococcal Polysaccharide, PPSV23 (PNEUMOVAX) Unknown Completed [facility] Influenza Virus Vaccine Quad IM 3+ YRS Unknown Completed [facility] SARS-COV-2 COVID-19 PFIZER VACCINE Unknown Completed [facility] SARS-COV-2 COVID-19 PFIZER VACCINE Unknown Completed [facility] Pneumococcal Polysaccharide, PPSV23 (PNEUMOVAX) Unknown Completed [facility] Influenza Virus Vaccine Quad IM 3+ YRS Unknown Completed [facility] SARS-COV-2 COVID-19 PFIZER VACCINE Unknown Completed [facility] SARS-COV-2 COVID-19 PFIZER VACCINE Unknown Completed [facility] Pneumococcal Polysaccharide, PPSV23 (PNEUMOVAX) Unknown Completed [facility] Influenza Virus Vaccine Quad IM 3+ YRS Unknown Completed [facility] SARS-COV-2 COVID-19 PFIZER VACCINE Unknown Completed [facility] SARS-COV-2 COVID-19 PFIZER VACCINE Unknown Completed [facility] Pneumococcal Polysaccharide, PPSV23 (PNEUMOVAX) Unknown Completed [facility] Influenza Virus Vaccine Quad IM 3+ YRS Unknown Completed [facility] SARS-COV-2 COVID-19 PFIZER VACCINE Unknown Completed [facility] SARS-COV-2 COVID-19 PFIZER VACCINE Unknown Completed [facility] Vital Signs Vital Name Observation Time Observation Value Comments S ource Systolic blood pressure 2024-02-18 01:57:00 134 mm[Hg] [facility] Diastolic blood pressure 2024-02-18 01:57:00 94 mm[Hg] [facility] Body height 2024-02-18 01:57:00 162.6 cm [facility] Body weight 2024-02-18 01:57:00 79.379 kg [facility] BMI 2024-02-18 01:57:00 30.04 kg/m2 [facility] Heart rate 2024-02-18 01:53:00 110 /min [facility] Body temperature 2024-02-18 01:53:00 36.61 Debbie [facility] Respiratory rate 2024-02-18 01:53:00 24 /min [facility] Oxygen saturation in Arterial blood by Pulse oximetry 2024-02-18 01:53:00 93 /min [facility] Systolic blood pressure 2024-02-09 01:54:05 150 mm[Hg] [facility] Diastolic blood pressure 2024-02-09 01:54:05 91 mm[Hg] [facility] Heart rate 2024-02-09 01:54:05 87 /min [facility] Respiratory rate 2024-02-09 01:54:05 17 /min [facility] Oxygen saturation in Arterial blood by Pulse oximetry 2024-02-09 01:54:05 93 /min [facility] Body temperature 2024-02-09 01:45:00 36.67 Debbie [facility] Body height 2024-02-09 01:45:00 162.6 cm [facility] Body weight 2024-02-09 01:45:00 81.194 kg [facility] BMI 2024-02-09 01:45:00 30.73 kg/m2 [facility] Respiratory rate 2024-02-08 21:00:00 18 /min [facility] Oxygen saturation in Arterial blood by Pulse oximetry 2024-02-08 21:00:00 96 /min [facility] Systolic blood pressure 2024-02-08 20:27:00 164 mm[Hg] [facility] Diastolic blood pressure 2024-02-08 20:27:00 90 mm[Hg] [facility] Heart rate 2024-02-08 20:27:00 83 /min [facility] Body temperature 2024-02-08 19:12:00 36.83 Debbie [facility] Body height 2024-02-08 19:12:00 162.6 cm [facility] Body weight 2024-02-08 19:12:00 81.194 kg [facility] BMI 2024-02-08 19:12:00 30.73 kg/m2 [facility] Heart rate 2024-01-14 12:15:00 98 /min [facility] Body temperature 2024-01-14 12:15:00 36.56 Debbie [facility] Respiratory rate 2024-01-14 12:15:00 14 /min [facility] Oxygen saturation in Arterial blood by Pulse oximetry 2024-01-14 12:15:00 95 /min [facility] Systolic blood pressure 2024-01-14 12:00:00 140 mm[Hg] [facility] Diastolic blood pressure 2024-01-14 12:00:00 90 mm[Hg] [facility] Body height 2024-01-14 10:51:00 162.6 cm [facility] Body weight 2024-01-14 10:51:00 81.194 kg [facility] BMI 2024-01-14 10:51:00 30.73 kg/m2 [facility] Systolic blood pressure 2023-12-23 05:02:00 133 mm[Hg] [facility] Diastolic blood pressure 2023-12-23 05:02:00 84 mm[Hg] [facility] Heart rate 2023-12-23 05:02:00 78 /min [facility] Body temperature 2023-12-23 05:02:00 36.17 Debbie [facility] Respiratory rate 2023-12-23 05:02:00 17 /min [facility] Oxygen saturation in Arterial blood by Pulse oximetry 2023-12-23 05:02:00 91 /min [facility] Body height 2023-12-23 03:45:00 162.6 cm [facility] Body weight 2023-12-23 03:45:00 81.194 kg [facility] BMI 2023-12-23 03:45:00 30.73 kg/m2 [facility] Systolic blood pressure 2023-12-22 02:08:00 143 mm[Hg] [facility] Diastolic blood pressure 2023-12-22 02:08:00 92 mm[Hg] [facility] Heart rate 2023-12-22 02:08:00 81 /min [facility] Respiratory rate 2023-12-22 02:08:00 13 /min [facility] Oxygen saturation in Arterial blood by Pulse oximetry 2023-12-22 02:08:00 95 /min [facility] Body temperature 2023-12-22 01:33:00 36.72 Debbie [facility] Body height 2023-12-22 01:33:00 162.6 cm [facility] Body weight 2023-12-22 01:33:00 81.239 kg [facility] BMI 2023-12-22 01:33:00 30.74 kg/m2 [facility] Systolic blood pressure 2023-11-11 02:00:00 127 mm[Hg] [facility] Diastolic blood pressure 2023-11-11 02:00:00 87 mm[Hg] [facility] Heart rate 2023-11-11 02:00:00 79 /min [facility] Respiratory rate 2023-11-11 02:00:00 20 /min [facility] Oxygen saturation in Arterial blood by Pulse oximetry 2023-11-11 02:00:00 98 /min [facility] Body temperature 2023-11-11 01:31:00 36.28 Debbie [facility] Body height 2023-11-11 01:31:00 162.6 cm [facility] Body weight 2023-11-11 01:31:00 79.379 kg [facility] BMI 2023-11-11 01:31:00 30.04 kg/m2 [facility] Systolic blood pressure 2023-10-27 06:54:00 133 mm[Hg] [facility] Diastolic blood pressure 2023-10-27 06:54:00 94 mm[Hg] [facility] Heart rate 2023-10-27 06:54:00 95 /min [facility] Body temperature 2023-10-27 06:54:00 36.44 Debbie [facility] Respiratory rate 2023-10-27 06:54:00 22 /min [facility] Body height 2023-10-27 06:54:00 162.6 cm [facility] Body weight 2023-10-27 06:54:00 78.472 kg [facility] BMI 2023-10-27 06:54:00 29.70 kg/m2 [facility] Oxygen saturation in Arterial blood by Pulse oximetry 2023-10-27 06:54:00 94 /min [facility] Systolic blood pressure 2022-10-14 19:43:00 111 mm[Hg] [facility] Diastolic blood pressure 2022-10-14 19:43:00 74 mm[Hg] [facility] Heart rate 2022-10-14 19:43:00 98 /min [facility] Body temperature 2022-10-14 19:43:00 36.39 Debbie [facility] Respiratory rate 2022-10-14 19:43:00 22 /min [facility] Oxygen saturation in Arterial blood by Pulse oximetry 2022-10-14 19:43:00 94 /min [facility] Body height 2022-10-14 16:13:00 162.6 cm [facility] Body weight 2022-10-14 16:13:00 81.647 kg [facility] BMI 2022-10-14 16:13:00 30.90 kg/m2 [facility] Systolic blood pressure 2022-03-12 10:13:00 119 mm[Hg] [facility] Diastolic blood pressure 2022-03-12 10:13:00 75 mm[Hg] [facility] Heart rate 2022-03-12 10:13:00 105 /min [facility] Body temperature 2022-03-12 10:13:00 37.28 Debbie [facility] Respiratory rate 2022-03-12 10:13:00 19 /min [facility] Body height 2022-03-12 10:13:00 162.6 cm [facility] Body weight 2022-03-12 10:13:00 99.791 kg [facility] BMI 2022-03-12 10:13:00 37.76 kg/m2 [facility] Oxygen saturation in Arterial blood by Pulse oximetry 2022-03-12 10:13:00 96 /min [facility] Systolic blood pressure 2022-02-20 11:57:00 155 mm[Hg] [facility] Diastolic blood pressure 2022-02-20 11:57:00 88 mm[Hg] [facility] Heart rate 2022-02-20 11:57:00 105 /min [facility] Respiratory rate 2022-02-20 11:57:00 18 /min [facility] Oxygen saturation in Arterial blood by Pulse oximetry 2022-02-20 11:57:00 100 /min [place] [facility] Body temperature 2022-02-20 09:25:00 37 Debbie [facility] Body height 2022-02-20 09:25:00 162.6 cm [facility] Body weight 2022-02-20 09:25:00 96.163 kg [facility] BMI 2022-02-20 09:25:00 36.39 kg/m2 [facility] Procedures Procedure Date / Time Performed Performing Clinician Source AC PANEL 20 + LACTIC ACID 2024-02-08 20:47:00 Christina Villarreal [facility] XR CHEST 1 VW 2024-02-08 19:47:00 Christina Villarreal [facility] URINALYSIS 2024-02-08 19:36:00 [facility] MAGNESIUM 2024-02-08 19:25:00 Christina Villarreal [facility] TROPONIN I 2024-02-08 19:25:00 [facility] COMP. METABOLIC PANEL ([id number]) 2024-02-08 19:25:00 Christina Villarreal [facility] ETHANOL 2024-02-08 19:25:00 [facility] CBC WITH DIFF 2024-02-08 19:25:00 Christina Villarreal [facility] N-TERMINAL PRO-BNP 2024-02-08 19:25:00 Christina Villarreal [facility] EKG-12 LEAD 2024-01-14 12:00:51 Jac Navarro [facility] LIPASE 2024-01-14 11:11:00 Jac Navarro [facility] TROPONIN I 2024-01-14 11:11:00 Jac Navarro [facility] COMP. METABOLIC PANEL ([id number]) 2024-01-14 11:11:00 Jac Navarro [facility] ETHANOL 2024-01-14 11:11:00 Jac Navarro [facility] CBC WITH DIFF 2024-01-14 11:11:00 Jac Navarro [facility] N-TERMINAL PRO-BNP 2024-01-14 11:11:00 Jac Navarro [facility] COVID-19 (ID NOW RAPID TESTING) 2024-01-14 11:11:00 Jac Navarro [facility] CONSENT/REFUSAL FOR DIAGNOSIS AND TREATMENT 2024-01-14 10:44:32 Doctor Unassigned, [place] [facility] LIPASE 2023-12-23 04:17:00 Tyler Rowe [facility] COMP. METABOLIC PANEL ([id number]) 2023-12-23 04:17:00 Tyler Rowe [facility] CBC WITH DIFF 2023-12-23 04:17:00 [facility] 2023-12-23 04:17:00 Tyler Rowe [facility] CONSENT/REFUSAL FOR DIAGNOSIS AND TREATMENT 2023-12-23 03:40:32 Doctor Unassigned, [place] [facility] CT ABDOMEN PELVIS W CONTRAST 2023-12-22 02:31:05 Melinda Maciel [facility] LIPASE 2023-12-22 01:58:00 Melinda Maciel [facility] COMP. METABOLIC PANEL ([id number]) 2023-12-22 01:58:00 Melinda Maciel [facility] ETHANOL 2023-12-22 01:58:00 Melinda Maciel [facility] CBC WITH DIFF 2023-12-22 01:58:00 Melinda Maciel [facility] PROTHROMBIN TIME / INR 2023-12-22 01:58:00 Wali Maciel [facility] URINALYSIS 2023-12-22 01:58:00 Melinda Maciel [facility] CONSENT/REFUSAL FOR DIAGNOSIS AND TREATMENT 2023-12-22 01:19:14 Doctor Unassigned, [place] [facility] NOTICE OF PRIVACY PRACTICES 2023-11-11 01:24:24 Doctor Unassigned, [place] [facility] CONSENT/REFUSAL FOR DIAGNOSIS AND TREATMENT 2023-11-11 01:23:54 Doctor Unassigned, [place] [facility] COVID-19 (ID NOW RAPID TESTING) 2023-10-27 07:09:00 Jac Navarro [facility] NOTICE OF PRIVACY PRACTICES 2023-10-27 06:49:48 Doctor Unassigned, [place] [facility] CONSENT/REFUSAL FOR DIAGNOSIS AND TREATMENT 2023-10-27 06:47:40 Doctor Unassigned, [place] [facility] CT ABDOMEN PELVIS W CONTRAST 2022-10-14 17:33:00 Melinda Maciel [facility] XR CHEST 1 2022-10-14 17:10:37 Melinda Maciel [facility] TROPONIN I 2022-10-14 16:37:00 [facility] COMP. METABOLIC PANEL ([id number]) 2022-10-14 16:37:00 Singer Kell [facility] CBC WITH DIFF 2022-10-14 16:37:00 Singer [facility] PROTHROMBIN TIME / INR 2022-10-14 16:37:00 Wali Maciel [facility] URINALYSIS 2022-10-14 16:37:00 Mel[facility] N-TERMINAL PRO-BNP 2022-10-14 16:37:00 Singer Kell [facility] CONSENT/REFUSAL FOR DIAGNOSIS AND TREATMENT 2022-10-14 15:56:36 Doctor Unassigned, [place] [facility] CONSENT/REFUSAL FOR DIAGNOSIS AND TREATMENT 2022-03-12 10:03:12 Doctor Unassigned, [place] [facility] XR CHEST 1 2022-02-20 09:59:00 Christy Holliday [facility] LIPASE 2022-02-20 09:30:00 Christy Holliday [facility] TROPONIN I 2022-02-20 09:30:00 Christy Holliday [facility] COMP. METABOLIC PANEL ([id number]) 2022-02-20 09:30:00 Christy Holliday [facility] CBC WITH DIFF 2022-02-20 09:30:00 [facility] 2022-02-20 09:30:00 Christy Holliday [facility] NOTICE OF PRIVACY PRACTICES 2022-02-20 09:15:02 Doctor Unassigned, [place] [facility] CONSENT/REFUSAL FOR DIAGNOSIS AND TREATMENT 2022-02-20 09:14:47 Doctor Unassigned, [place] [facility] Encounters Start Date/Time End Date/Time Encounter Type Admission Type Attending [facility] Facility Care Department Encounter ID Source 2024-02-17 20:58:00 2024-02-17 21:44:00 Emergency X BALJITCHACHA JOHNALA [facility] ERT [id number] [facility] 2024-02-17 20:58:00 2024-02-17 21:44:00 Emergency Baljitgermain Peg Yovani [facility] 1.2.840.114 350.1.13.10 4.2.7.2.686 [id number] [facility] 2024-02-08 20:38:00 2024-02-08 21:40:00 Emergency X DEMETRIA DAVENPORT [facility] ERT [id number] [facility] 2024-02-08 20:38:00 2024-02-08 21:40:00 Emergency Demetria Davenport [facility] 1.2.840.114 350.1.13.10 4.2.7.2.686 [id number] [id number] [facility] 2024-02-08 14:08:00 2024-02-08 17:06:00 Emergency Christina Villarreal [facility] 1.2.840.114 350.1.13.10 4.2.7.2.686 [id number] 084 [id number] [facility] 2024-01-14 04:46:00 2024-01-14 06:23:00 Emergency X JAC NAVARRO [facility] ERT [id number] [facility] 2024-01-14 04:46:00 2024-01-14 06:23:00 Emergency Jac Navarro J [facility] 1.2.840.114 350.1.13.10 4.2.7.2.686 [id number] [facility] 2023-12-22 21:51:00 2023-12-22 23:13:00 Emergency X TYLER ROWE [facility] ERT [id number] [facility] 2023-12-22 21:51:00 2023-12-22 23:13:00 Emergency Tyler Rowe [facility] 1.2.840.114 350.1.13.10 4.2.7.2.686 [id number] 084 [id number] [facility] 2023-12-21 19:36:00 2023-12-21 21:52:00 Emergency X MELINDA MACIEL [facility] ERT [id number] [facility] 2023-12-21 19:36:00 2023-12-21 21:52:00 Emergency Melinda Maciel [facility] 1.2.840.114 350.1.13.10 4.2.7.2.686 [id number] 084 [id number] [facility] 2023-11-10 19:29:00 2023-11-10 20:14:00 Emergency X CHRISTY HOLLIDAY [facility] ERT [id number] [facility] 2023-11-10 19:29:00 2023-11-10 20:14:00 [facility] 1.2.840.114 350.1.13.10 4.2.7.2.686 [id number] 084 [id number] [facility] 2023-10-27 00:49:00 2023-10-27 01:41:00 Emergency X JAC NAVARRO [facility] ERT [id number] [facility] 2023-10-27 00:49:00 2023-10-27 01:41:00 Emergency Jac Navarro [facility] 1.2.840.114 350.1.13.10 4.2.7.2.686 [id number] 084 [id number] [facility] 2023-07-15 00:00:00 2023-07-15 00:00:00 Outpatient DARIEN LOBO [id number] Maria Elena [facility] 2023-06-16 11:30:00 2023-06-16 11:30:00 Outpatient DARIEN LOBO [id number] Maria Elena [facility] 2023-05-18 00:00:00 2023-05-18 00:00:00 Outpatient MARIA ELENA CHAN [id number] [facility] 2022-10-14 10:07:00 2022-10-14 14:39:00 Emergency X MELINDA MACIEL [facility] ERT [id number] [facility] 2022-10-14 10:07:00 2022-10-14 14:39:00 Emergency Maciel Melinda [facility] 1.2.840.114 350.1.13.10 4.2.7.2.686 [id number] 084 [id number] [facility] 2022-03-12 05:15:00 2022-03-12 06:41:00 Emergency X CHRISYT HOLLIDAY [facility] ERT [id number] [facility] 2022-03-12 05:15:00 2022-03-12 06:41:00 Emergency Sukizandranicki Christy Olson [facility] 1.2.840.114 350.1.13.10 4.2.7.2.686 [id number] [facility] 2022-02-20 04:17:00 2022-02-20 07:16:00 Emergency X CHRISTY HOLLIDAY [facility] ERT [id number] [facility] 2022-02-20 04:17:00 2022-02-20 07:16:00 Emergency Christy Holliday S [facility] 1.2.840.114 350.1.13.10 4.2.7.2.686 [id number] 084 [id number] [facility] 2021-02-03 11:10:00 2021-02-03 11:10:00 Outpatient DENISE CAMPO [facility] [id number] [facility] 2021-01-13 11:20:00 2021-01-13 11:20:00 Outpatient [facility] [id number] [facility] 2020-11-10 08:20:00 2020-11-10 08:20:00 Outpatient KARLEY ESTRADA [facility] [id number] [facility] Results Test Description Test Time Test Comments Results Result Co mments Source [facility] + Lactic [id number] 20:52:47* Test Item Value Reference Range Interpretation Comme nts PH (test code = 2) 7.39 7.35-7.45 PCO2 (test code = 0947505775) 42 35-45 PO2 (test code = 9044980108) 76 80-100 L HCO3 (test code = 1521334493) 25 22-26 BE (test code = 1553556597) -0.1 -3.0-3.0 THB (test code = 0010414124) 14.3 g/dL 13.5-18.0 %O2HB (test code = 7757858513) 85.8 % 94.0-99.0 L %COHB ART (test code = 6049897087) 9.0 % 0.0-1.5 H %METHB ART (test code = 3301347469) 0.3 % 0.4-1.5 L VOL%O2 ART (test code = 3244762129) 17.3 % 15.0-23.0 NA (test code = 5235540247) 140 mmol/L 135-145 K+ (test code = 1419670929) 4.1 mmol/L 3.5-5.0 AC CA IONZ (test code = 4600227840) 4.50 mg/dL 4.50-5.30 GLUCOSE (test code = 9369671919) 105 mg/dL 70-110 LACTIC ACID (test code = 7930671617) 2.60 mmol/L 0.50-2.20 H Lab Interpretation (test cod e = 83964-8) Abnormal [facility] [id number] 20:34:14* Test Item Value Reference Range Interpretation Comme nts TROPONIN I (test code = 0355345473) 0.008 ng/mL <=0.034 LOUISE (test code = [...] of biotin. Lab Interpretation (test code = 19764-0) Normal [facility] Ril-[id number] 20:31:35* Test Item Value Reference Range Interpretation Comme nts NT-proBNP (test code = 96449-2) 188 pg/mL <=125 LOUISE (test code = LOUISE) Result Indeterminate-Consid er causes of NT-proBNP elevation other than Heart failure such as acute coronary syndrome, pulmonary embolism, pulmonary hypertension, sepsis, stroke, and renal dysfunction. Lab Interpretation (test code = 14658-0) Abnormal [facility] Metabolic Panel (79981)2024-02-08 20:21:10* Test Item Value Reference Range Interpretation Comme nts NA (test code = 6891993256) 135 mmol/L 135-145 K (test code = 7392476486) 4.5 mmol/L 3.5-5.0 CL (test code = 5008426427) 100 mmol/L 98-108 CO2 TOTAL (test code = 5045188564) 22 mmol/L 23-31 L AGAP (test code = 6682573258) 13 2-16 BUN (test code = 9406851387) 8 mg/dL 7-23 GLUCOSE (test code = 0966884961) 97 mg/dL 70-110 CREATININE (test code = 2160-0) 0.65 mg/dL 0.60-1.25 TOTAL BILI (test code = 6173059676) 0.4 mg/dL 0.1-1.1 CALCIUM (test code = 5123351736) 9.4 mg/dL 8.6-10.6 T PROTEIN (test code = 3998569605) 8.2 g/dL 6.3-8.2 ALBUMIN (test code = 9766985436) 4.7 g/dL 3.5-5.0 ALK PHOS (test code = 4873098154) 76 U/L 34-122 ALTv (test code = 1742-6) 33 U/L 5-50 AST(SGOT) (test code = 3129074704) 54 U/L 13-40 H eGFR (test code = 08186-1) 111.3 mL/min/1.73m2 CKD-EPI eGFR (2020). Assuming creatinine has been stable day-to-day for at least three months, the eGFR indicates Category G1 (>= 90 mL/min/1.73 m2) Lab Interpretation (test code = 54028-3) Abnormal [facility] Arlington[facility]esium2024-04-01 20:21:10* Test Item Value Reference Range Interpretation Comme nts MAGNESIUM (test code = 7437285241) 2.1 mg/dL 1.7-2.4 Lab Interpretation (test cod e = 37981-9) Normal [facility] 1 [id number] 20:07:21EXAM: XR CHEST 1 VW COMPARISON: 01/14/2024 HISTORY: sob FINDINGS: Lungs: Slightly hyperexpanded lungswith subtle progression of interstitialprominence. Trace pleural effusions could be present. Heart/Mediastinum: Stable cardiomegaly. Bones and soft tissues: No osseous abnormality is visualized.[facility] Cbc with [id number] 20:04:26* Test Item Value Reference Range Interpretation [...] 33.8 g/dL 31.2-35.0 RDW-SD (test code = 51166-1) 50.5 fL 38.5-51.6 RDW-CV (test code = 788-0) 14.3 % 12.1-15.4 PLT (test code = 777-3) 206 150-328 MPV (test code = 50969-7) 9.1 fL 9.8-13.0 L NRBC/100 WBC (test code = 8111561430) 0.0 0.0-10.0 NRBC x10^3 (test code = 8181039552) See_Comment [Automated messa ge] The system which generated this result transmitted reference range: 10*3/?L. The reference range was not used to interpret this result as normal/abnormal. GRAN MAT (NEUT) % (test code = 770-8) 81.0 % IMM GRAN % (test code = 0410669674) 1.20 % LYMPH % (test code = 736-9) 10.9 % MONO % (test code = 5905-5) 6.8 % EOS % (test code = 713-8) 0.0 % BASO % (test code = 706-2) 0.1 % GRAN MAT x10^3(ANC) (test code = 4559450173) 9.31 10*3/uL 1.99-6.95 H IMM GRAN x10^3 (test code = 9353093730) 0.14 10*3/uL 0.00-0.06 H LYMPH x10^3 (test code = 731-0) 1.25 10*3/uL 1.09-3.23 MONO x10^3 (test code = 742-7) 0.78 10*3/uL 0.36-1.02 EOS x10^3 (test code = 711-2) 0.06-0.53 L BASO x10^3 (test code = 704-7) 0.01-0.09 Lab Interpretation (test code = 27291-3) Abnormal [facility]. METABOLIC PANEL (33040)2023-12-23 04:53:26* Test Item Value Reference Range Interpretation Comme nts NA (test code = 1202769179) 135 mmol/L 135-145 K (test code = 1421638839) 3.2 mmol/L 3.5-5.0 L CL (test code = 1120435102) 104 mmol/L 98-108 CO2 TOTAL (test code = 8450808530) 23 mmol/L 23-31 AGAP (test code = 5544430976) 8 2-16 BUN (test code = 0395100880) 11 mg/dL 7-23 GLUCOSE (test code = 0971254437) 82 mg/dL 70-110 CREATININE (test code = 2160-0) 0.64 mg/dL 0.60-1.25 TOTAL BILI (test code = 8137270872) 0.5 mg/dL 0.1-1.1 CALCIUM (test code = 6203586764) 8.8 mg/dL 8.6-10.6 T PROTEIN (test code = 4631384256) 6.7 g/dL 6.3-8.2 ALBUMIN (test code = 9968939213) 4.1 g/dL 3.5-5.0 ALK PHOS (test code = 9902118658) 46 U/L 34-122 ALTv (test code = 1742-6) 21 U/L 5-50 AST(SGOT) (test code = 8179224405) 43 U/L 13-40 H eGFR (test code = 63372-7) 111.8 mL/min/1.73m2 CKD-EPI eGFR (2020). Assuming creatinine has been stable day-to-day for at least three months, the eGFR indicates Category G1 (>= 90 mL/min/1.73 m2) Lab Interpretation (test code = 46291-1) Abnormal [facility]2024-[facility]-14 04:53:26* Test Item Value Reference Range Interpretation Comme nts LIPASE (test code = 5448005061) 105 U/L 0-220 Lab Interpretation (test cod e = 12950-5) Normal [facility]CBC WITH [id number] 04:34:24* Test Item Value Reference Range Interpretation [...] 33.0 g/dL 31.2-35.0 RDW-SD (test code = 78707-5) 50.9 fL 38.5-51.6 RDW-CV (test code = 788-0) 13.7 % 12.1-15.4 PLT (test code = 777-3) 232 150-328 MPV (test code = 78820-3) 8.7 fL 9.8-13.0 L NRBC/100 WBC (test code = 7559534316) 0.0 0.0-10.0 NRBC x10^3 (test code = 7569703452) See_Comment [Automated messa ge] The system which generated this result transmitted reference range: 10*3/?L. The reference range was not used to interpret this result as normal/abnormal. GRAN MAT (NEUT) % (test code = 770-8) 58.8 % IMM GRAN % (test code = 3849579723) 0.90 % LYMPH % (test code = 736-9) 27.8 % MONO % (test code = 5905-5) 10.5 % EOS % (test code = 713-8) 1.3 % BASO % (test code = 706-2) 0.7 % GRAN MAT x10^3(ANC) (test code = 5980512581) 5.68 10*3/uL 1.99-6.95 IMM GRAN x10^3 (test code = 1171815213) 0.09 10*3/uL 0.00-0.06 H LYMPH x10^3 (test code = 731-0) 2.69 10*3/uL 1.09-3.23 MONO x10^3 (test code = 742-7) 1.02 10*3/uL 0.36-1.02 EOS x10^3 (test code = 711-2) 0.13 10*3/uL 0.06-0.53 BASO x10^3 (test code = 704-7) 0.07 10*3/uL 0.01-0.09 Lab Interpretation (test code = 83094-8) Abnormal [facility] P[facility] W [id number] 03:32:43Exam: CT Abdomen and Pelvis With Contrast, [...] osseous abnormality.Soft tissues: Small fat-containing inguinal hernias.[facility] ArlingtonEthanol2024-02-13 02:32:24* Test Item Value Reference Range Interpretation Comme nts ALCOHOL (test code = 3554608916) 117 mg/dL LOUISE (test code = LOUISE) <10 [id number] Toxic>100 Depression of PARCEL POST WEIGHER>400 Fatalities Reported [facility] Metabolic Panel (58385)2023-12-22 02:31:43* Test Item Value Reference Range Interpretation Comme nts NA (test code = 9660445134) 133 mmol/L 135-145 L K (test code = 1563229934) 3.3 mmol/L 3.5-5.0 L CL (test code = 1646580594) 102 mmol/L 98-108 CO2 TOTAL (test code = 4024308482) 25 mmol/L 23-31 AGAP (test code = 3103911175) 6 2-16 BUN (test code = 4896644907) 11 mg/dL 7-23 GLUCOSE (test code = 1475628399) 75 mg/dL 70-110 CREATININE (test code = 0552873196) 0.51 mg/dL 0.60-1.25 L TOTAL BILI (test code = 2680913326) 0.5 mg/dL 0.1-1.1 CALCIUM (test code = 0431641629) 8.9 mg/dL 8.6-10.6 T PROTEIN (test code = 9864435307) 7.2 g/dL 6.3-8.2 ALBUMIN (test code = 3828137215) 4.5 g/dL 3.5-5.0 ALK PHOS (test code = 7186305618) 46 U/L 34-122 ALTv (test code = 1742-6) 15 U/L 5-50 AST(SGOT) (test code = 6295371862) 24 U/L 13-40 eGFR (test code = 83369-4) 119.7 mL/min/1.73m2 CKD-EPI eGFR (2020). Assuming creatinine has been stable day-to-day for at least three months, the eGFR indicates Category G1 (>= 90 mL/min/1.73 m2) Lab Interpretation (test code = 45105-7) [facility]normal [facility] 02:31:43* Test Item Value Reference Range Interpretation Comme nts LIPASE (test code = 2079412709) 121 U/L 0-220 Lab Interpretation (test cod e = 14923-3) Normal [facility] ArlingtonProthrombin Time / NNH5828-61-59 02:21:02* Test Item Value Reference Range Interpretation Comme nts PROTIME PATIENT (test code = 5964-2) 10.5 10.1-12.6 INR (test code = 6301-6) 0.9 Normal INR <1.1; Warfarin Therapeutic range 2.0 to 3.0 or 2.5 to 3.5, depending upon the indications. Lab Interpretation (test code = 64475-3) Normal [facility] ArlingtonCbc with Twmq6351-24-93 02:14:04* Test Item Value Reference Range Interpretation [...] 34.0 g/dL 31.2-35.0 RDW-SD (test code = 96202-0) 49.1 fL 38.5-51.6 RDW-CV (test code = 788-0) 13.5 % 12.1-15.4 PLT (test code = 777-3) 260 150-328 MPV (test code = 87333-1) 8.7 fL 9.8-13.0 L NRBC/100 WBC (test code = 2709971836) 0.0 0.0-10.0 NRBC x10^3 (test code = 3247614560) See_Comment [Automated messa ge] The system which generated this result transmitted reference range: 10*3/?L. The reference range was not used to interpret this result as normal/abnormal. GRAN MAT (NEUT) % (test code = 770-8) 64.3 % IMM GRAN % (test code = 5952637537) 0.90 % LYMPH % (test code = 736-9) 24.2 % MONO % (test code = 5905-5) 9.1 % EOS % (test code = 713-8) 0.7 % BASO % (test code = 706-2) 0.8 % GRAN MAT x10^3(ANC) (test code = 7043949372) 8.73 10*3/uL 1.99-6.95 H IMM GRAN x10^3 (test code = 8255540685) 0.12 10*3/uL 0.00-0.06 H LYMPH x10^3 (test code = 731-0) 3.28 10*3/uL 1.09-3.23 H MONO x10^3 (test code = 742-7) 1.23 10*3/uL 0.36-1.02 H EOS x10^3 (test code = 711-2) 0.10 10*3/uL 0.06-0.53 BASO x10^3 (test code = 704-7) 0.11 10*3/uL 0.01-0.09 H Lab Interpretation (test code = 45605-4) [facility] 10:16:22* Test Item Value Reference Range Interpretation Comments TROPONIN I (test code = 8105327108) 0.007 ng/mL See_Comment [Automated message] The system [...] of biotin. Lab Interpretation (test code = 54806-1) Normal [facility] ArlingtonN-TERMINAL RDG-QBA2886-11-14 10:13:01* Test Item Value Reference Range Interpretation Comme nts NT-proBNP (test code = 9261641054) 52 pg/mL See_Comment [Automated message] The system which generated this result transmitted reference range: <=125. The reference range was not used to interpret this result as normal/abnormal. LOUISE (test code = LOUISE) Biotin has been reported to cause a negative bias, interpret results relative to patient's use of biotin. Lab Interpretation (test code = 75373-6) Normal [facility] ArlingtonCOMP. METABOLIC PANEL (16859)2022-02-20 10:04:02* Test Item Value Reference Range Interpretation Comme nts NA (test code = 1795050959) 137 mmol/L 135-145 K (test code = 6604822379) 3.6 mmol/L 3.5-5.0 CL (test code = 6018733037) 99 mmol/L 98-108 CO2 TOTAL (test code = 7743644641) 25 mmol/L 23-31 AGAP (test code = 6582191258) 2-16 BUN (test code = 4893209533) 6 mg/dL 7-23 L GLUCOSE (test code = 4148957942) 88 mg/dL 70-110 CREATININE (test code = 7613871325) 0.55 mg/dL 0.60-1.25 L TOTAL BILI (test code = 9080386831) 0.8 mg/dL 0.1-1.1 CALCIUM (test code = 5750823766) 8.9 mg/dL 8.6-10.6 T PROTEIN (test code = 5153037566) 7.5 g/dL 6.3-8.2 ALBUMIN (test code = 4756233329) 4.8 g/dL 3.5-5.0 ALK PHOS (test code = 5504490943) 113 U/L 34-122 ALTv (test code = 1742-6) 84 U/L 5-50 H AST(SGOT) (test code = 1957563932) 107 U/L 13-40 H eGFR (test code = 4531154201) mL/min/1.73m2 LOUISE (test code = LOUISE) Association [...] imaging tests). Lab Interpretation (test code = 67914-5) Abnormal [facility] ArlingtonLIPASE, PBBKI6861-95-21 10:03:21* Test Item Value Reference Range Interpretation Comme nts LIPASE (test code = 0066544736) 193 U/L 0-220 Lab Interpretation (test cod e = 22916-5) Normal [facility] ArlingtonCB WITH UYJR4555-03-38 09:39:17* Test Item Value Reference Range Interpretation Comme nts WBC (test code = 6690-2) See_Comment [Automated [employer] The system which generated this result transmitted reference range: 4.20 - 10.70 10*3/?L. The reference range was not used to interpret this result as normal/abnormal. RBC (test code = 789-8) See_Comment [Automated [employer] ge] The system which generated this result [...] g/dL 31.2-35.0 H RDW-SD (test code = 20131-1) 44.4 fL 38.5-51.6 RDW-CV (test code = 788-0) 11.9 % 12.1-15.4 L PLT (test code = 777-3) See_Comment [Automated [employer]] The system which generated this result transmitted reference range: 150 - 328 10*3/?L. The reference range was not used to interpret this result as normal/abnormal. MPV (test code = 95983-0) 9.2 fL 9.8-13.0 L NRBC/100 WBC (test code = 6859256537) See_Comment [Automated [place] [employer]] The system which generated this result transmitted reference range: 0.0 - 10.0 /100 WBCs. The reference range was not used to interpret this result as normal/abnormal. NRBC x10^3 (test code = 3743808787) <0.01 See_Comment [Automated [employer] ge] The system which generated this result transmitted reference range: 10*3/?L. The reference range was not used to interpret this result as normal/abnormal. GRAN MAT (NEUT) % (test code = 770-8) 69.9 % IMM GRAN % (test code = 0519063570) 1.50 % LYMPH % (test code = 736-9) 18.9 % MONO % (test code = 5905-5) 7.0 % EOS % (test code = 713-8) 1.9 % BASO % (test code = 706-2) 0.8 % GRAN MAT x10^3(ANC) (test code = 0512947628) 7.15 10*3/uL 1.99-6.95 H IMM GRAN x10^3 (test code = 1891229935) 0.15 10*3/uL 0.00-0.06 H LYMPH x10^3 (test code = 731-0) 1.93 10*3/uL 1.09-3.23 MONO x10^3 (test code = 742-7) 0.72 10*3/uL 0.36-1.02 EOS x10^3 (test code = 711-2) 0.19 10*3/uL 0.06-0.53 BASO x10^3 (test code = 704-7) 0.08 10*3/uL 0.01-0.09 Lab Interpretation (test code = 77570-7) Abnormal [facility] Notes Date/Time Note Provider Source 2024-02-17 21:43:52 upF5MLKAsRzSAgejvJQbFmmsdCSaNUf5xQj Ltv8crCljm9VKfANIUoQ8prWjsSiH3113-5 02-16T21:43:52 No answer in lobby. 06488-2Smafihple department OcxpUR0398-95-24R05:44:07[facility] NoteTXT1.2.840.909055.1.13.104.2.7. 2.738614|[id number] for patient wsuu71190-1BkntFEPLDVTQIRWJzshpchmi C-CDA narrative yjra989853674Wsgfzr J Hoot RNUT[address] AalmKwsbnnurqJfnijqedjJSSW512914821 4ZQAWHOKCZUYQYEAPSVLUGE3508-16-61H4 1:44:071.2.840.816937.1.72.3.15|1.2 .840.402831.1.13.104.2.7.2.727879_2 [id number] Angy Turner RN [facility] 2024-02-17 21:42:10 ToLpOanXgEs2fQO8H3P6QbQtur2e8PkGPmm B1rLD5fx7PzH8f71oattFAe1wvIDU9437-9 02-16T21:42:10 Pt's blood pressure cuff and pulse ox found lying on chair. Called for patient in lobby 2 times, no answer. No one in lobby. 61327-2Ecczcndsn department RhkyDK9032-18-20R14:44:10[facility] NoteTXT1.2.840.470193.1.13.104.2.7. 2.051799|[id number] for patient wmej07712-7HmjmXGJLROJULEABtrbghbcs C-CDA narrative qrzg888730025OwjpsSierra Samaniego RN[address] YbtbHydntmmwzJlnivstwoCRDE257110548 7SPSRHTSYRKUGFXGGKTMLQQ7975-08-55Y8 1:44:101.2.840.008095.1.72.3.15|1.2 .840.203097.1.13.104.2.7.2.727879_2 [id number] Sierra Samaniego RN [facility] 2024-02-17 21:41:09 K3DHDZIL+kIfw2Vt3psdiWogwAxHPWiq+IW cMYi9k94MYfb2t4SYZDgXlA5TZjv47259-6 02-16T21:41:09 Pt not in lobby or in room. No answer in lobby. 39272-7Wnbaxqwzc department MnrqGY7087-17-67Q04:41:40[facility] NoteTXT1.2.840.597999.1.13.104.2.7. 2.684497|5844160712LSVyvbefofj for patient qrcu37279-5OmhiVHATHHPXYGHKqojonbsp C-CDA narrative [id number] 0MRFJQUXAYEZRBVGDRNQGTB3609-30-17G0 1:41:401.2.840.530837.1.72.3.15|1.2 .840.577101.1.13.104.2.7.2.727879_2 [id number] [facility] 2024-02-17 21:14:29 PKc4Mn9sPTBW8V81WR5Uuct3QaYQGH0sAnl Q+HIBcM3ACzFeA5rdZ0sOnr/NHZfz1264-7 1:14:29 Pt not in - and no answer in [facility]. [address]-0Wpjwjyvak[address] TlczQG2105-05-36R82:15:32[facility] NoteTXT1.2.840.479255.1.13.104.2.7. 2.759454|9667013972BPZjiijmbqq for patient djbj88412-9ZlueEETXAUOSAFPIxcntwfoy C-CDA narrative [id number] 8MJFKIMDFDULPBKXXCSSAXN2367-73-55L0 1:15:321.2.840.392797.1.72.3.15|1.2 .840.670836.1.13.104.2.7.2.727879_2 [id number] [facility] 2024-02-17 20:48:50 4nR85zGtVTaEx0RAKWoutTzeK6viLYS8E4G WGe4RbibSn1WLIO/JJ1/zo0BSGP6o3707-7 02-16T20:48:50 Pt arrives ambulatory to ED c/o SOB, right upper abdominal pain, and left leg and hip pain. Pt states that he has been on prednisone for about 5 yrs which had given him osteoporosis which is causing his leg pain. Reports hx of COPD, o2 is generally @ 91 he says. 12497-5Nlplvaagz department Triage ejkqXG1026-39-30L76:53:54[facility] Triage noteTXT1.2.840.761947.1.13.104.2.7. 2.571953|[id number] for patient ukki76853-4Chtavrlna department NoteLNNARRATIVEFormatted C-CDA narrative txyx792180767Szzonw L Williams RNUT[address] QqquVghpfyoznAovognqhgYCIV262891200 5HRNKGTPWPGUPNVUXACXHKA6085-77-00E1 0:53:541.2.840.408413.1.72.3.15|1.2 .840.300370.1.13.104.2.7.2.727879_2 [id number] Leah Lizama RN [facility] 2024-02-08 21:37:56 WEroMzRR89iav3svusNkpcE14E+ZlkfFHgJ le/ZBn4TW5HCJC5+V70V+vj6T3+gu6167-7 02-07T21:37:56 Pt left AMA 70826-4Llyapxsnc department OvvzXT0652-12-15H30:38:11[facility] NoteTXT1.2.840.315158.1.13.104.2.7. 2.130202|4391714608PIEmiarilmw for patient wywa04683-8JhbsWCSMAYRALLZEyiblmkho C-CDA narrative kpbv551769556Fpoup M Cristian RN[id number] 7SOQPLZCQTKCNJLBMPHLFJU0509-16-01I0 1:38:111.2.840.696705.1.72.3.15|1.2 .840.774828.1.13.104.2.7.2.727879_2 [id number] Kylie Foster RN [facility] 2024-02-08 21:32:00 L245cPqyOH/DeDDfrTXUzbxfogKWRU1UwfT 9g/N20AySsPwcSX6ImAYHQVO9m8eO2690-8 02-07T21:32:00 Patient leaving AMA after self removing [...] ambulatory with steady gait, appears in NAD 09924-8Uhqlppztm department PysfNZ5287-48-87Q95:40:32[facility] NoteTXT1.2.840.446977.1.13.104.2.7. 2.863408|[id number] for patient cebn96930-9QfqwNZOTPBRUXMGWfugbexca C-CDA narrative text[address] StreetDfncEmrssemrkBdzqdwfdyQCSI707679541 8TRVYJMIXIJOLTCDXFNEDSQ1622-62-33Y9 1:40:321.2.840.322452.1.72.3.15|1.2 .840.047610.1.13.104.2.7.2.727879_2 [id number] [facility] 2024-02-08 20:54:38 oM13BhF+lV1Ay8bY6opRTtJk/bCPCdxwEFA YzaPquaNTsasNNLOAxk6Kw0Es9Dne4613-2 02-07T20:54:38 Pt states he uses O2 at home, portable O2 is broken 70748-2Psuuvzwls department QpovGE0279-64-15D60:55:13[facility] NoteTXT1.2.840.209596.1.13.104.2.7. 2.000459|4906866615MJJhfhhiohv for patient yzzn36068-2QqbnHUNBIDWGXANMsftoosdz C-CDA narrative text[address] Umo[id number] 9YIJWSKIILOEGLUAGDBOFWB2770-06-21W2 0:55:131.2.840.064613.1.72.3.15|1.2 .840.312910.1.13.104.2.7.2.727879_2 [id number] [facility] 2024-02-08 20:51:11 el/w2YTNZ+wDkuLejPmrkErz64NA/x7DhYW 38kcQm8iAg5omgxC0xyAdLf+34aAf9655-9 02-07T20:51:11 Pt ambulates with cane 43773-3Gbbpkqfdr department NsxxEJ0102-55-65D75:51:26[facility] department NoteTXT1.2.840.698155.1.13.104.2.7. 2.424766|8853906707USVvblrrvpn for patient fazo12640-4HofcUGQTQRPSJEMQmqqzermq C-CDA narrative textUT[id number] 4OMJQFUIONMYZBPCTDLULMY4720-41-34H1 0:51:261.2.840.105415.1.72.3.15|1.2 .840.277248.1.13.104.2.7.2.727879_2 [id number] [facility] 2024-02-08 20:43:13 7GetenjtLWbXjPYNoX708uH/9GbsgI+2tFK wSCRRa/jxCVb/9ffxnwQNTmp/vFMo5321-6 02-07T20:43:13 CC: Pt arrives SOB after leaving RUBY earlier in the shift. He reports he [...] 3 BC powders and drank 3 beers." 08092-2Tunsqiudh department Triage zcqySC0255-99-88Y40:48:36[facility] Triage noteTXT1.2.840.891146.1.13.104.2.7. 2.479972|9290201469TAKzwvnpsph for patient bgbq48578-0Kulullaat department NoteLNNARRATIVEFormatted C-CDA narrative sgwf050565720Zxvomg R Shehadeh RNUT[id number] 7SYXUABORKGKPUQYFHOZYAM5048-41-34V9 0:48:361.2.840.176488.1.72.3.15|1.2 .840.415799.1.13.104.2.7.2.727879_2 [id number] Leah King RN [facility] 2024-02-08 17:04:05 r6Ssyuo+vWr9ToJSRFsYDGLpeWxXV2zx9Z+ vXQOnp/Gafi/Cu4NhTr1NFUl4DvWl4700-7 7:04:05 Patient walked to the nurses station and stated "I have another emergency and I have to leave right now. I need this IV taken out immediately."Encouraged patient to stay and he stated "I have to leave immediately and I don't want to take this out myself" IV d/c at this time and patient ambulated out of the department with a steady gait. 57631-1Fhhhhakqc department XbwmZP6081-21-59S68:05:22[facility] NoteTXT1.2.840.155325.1.13.104.2.7. 2.226624|4757518733DYAjfzpdbpq for patient etfo74998-6LkpwTAQPXLDVMKPScmeqcyms C-CDA narrative ztuq371537423Oyae M Hayes RN[id number] 2IIXDZHHEZAAEJNMNBXFYEB8237-19-56C7 7:05:221.2.840.615480.1.72.3.15|1.2 .840.800431.1.13.104.2.7.2.727879_2 [id number] Allison Zhang RN [facility] 2024-02-08 14:23:02 kmuwoiCbdtZvjMdM6h1dwTw6qI0E/Z3pRfm uswrhKjDYJwQ/nUeYicZd0HwHktHn0808-8 4:23:02 Pt ambulates with a cane 01565-8Toyajzebx department YwniLG4735-19-60C43:23:12[facility] department NoteTXT1.2.840.732920.1.13.104.2.7. 2.635243|8703046015PALrtjeltbo for patient jnds03880-2GoduATOZDCEUWUAOsxzoxapn C-CDA narrative mbce370592227AntzwKylie Foster RN[address] OkqxQqgrbfoipTabyhvejzFDQC130566184 8CMNLRKHQOYBMEMFPFGELAN4260-28-38A7 4:23:121.2.840.564051.1.72.3.15|1.2 .840.890822.1.13.104.2.7.2.727879_2 [id number] Kylie Foster RN [facility] 2024-02-08 14:13:15 Z2e670/72IiDX0Tk4buydfhStnKMlUlUmev AFlxcqCG0BK3L6GqMVe3VGabqQBSo3683-5 4:13:15 Pt has taken 8-packets of BC [...] only thing that helps." Face is flushed. 01580-6Slespkotv department Triage fbaaTC9996-10-98F83:17:26[facility] Triage noteTXT1.2.840.589096.1.13.104.2.7. 2.682311|6977504245NCFcdinxihv for patient gsxx71976-2Xnjdqntuo department NoteLNNARRATIVEFormatted C-CDA narrative ekfo212125787Luvovkf Traci MACHUCA[address] Pnv[id number] 6PUWCLGSHFFBFHCULWBAWKT4713-83-63P7 4:17:261.2.840.831914.1.72.3.15|1.2 .840.663808.1.13.104.2.7.2.727879_2 [id number] Hali Traci MACHUCA [facility] 2024-01-14 06:16:25 4Oiy6QdgMj5Va4h8llBBRrq2Qu6V/FhSiR0 ZI3xSF1hjvpsWvi+pKdC4yNqgicQk6623-5 06:16:25 Pt given printed and verbal discharge [...] w/d, pt leaving in no apparent distress, 71571-2Qrtskgnvm department LafqVD9705-77-82X39:17:20[facility] NoteTXT1.2.840.500489.1.13.104.2.7. 2.151386|9942734258CWUbfcxltkw for patient wstv52535-5NgtkCCUYPEYAATKEdwpidwjf C-CDA narrative text[address] RtucBgcctkgfiRpyqfqyulLBWQ649725301 5FOOZLKBCQDIYJQEJICFECU7939-65-02M9 6:17:201.2.840.634438.1.72.3.15|1.2 .840.625940.1.13.104.2.7.2.727879_2 [id number] [facility] 2024-01-14 04:49:43 k9LVgjnWQRqQh4w2qqG8HTGqyr7Er+E0JFo 3l0KR6fAv2jpjKWovDzzIu7wnNlFl4695-7 04:49:43 CC: "My COPD is acting up [...] ext without difficulty, amb with steady gait 85763-0Qqwymgwps department Triage fwqkRL1990-93-63I36:55:49[facility] department Triage noteTXT1.2.840.446905.1.13.104.2.7. 2.060699|0436822953CHVtmdyjglq for patient qxhd62542-6Iqkqbcogj department NoteLNNARRATIVEFormatted C-CDA narrative mgnu023172395Eohkzxyee [address] KpmeIpdixtpmkHrzwvjxcaOSPH872192469 7DNGGBLGOOWXPYCJZZNTNLP5650-77-44A5 4:55:491.2.840.476776.1.72.3.15|1.2 .840.337543.1.13.104.2.7.2.727879_2 [id number] Leah King RN [facility] 2024-01-14 04:43:00 Cfm08rifH4msOLeVcnRua2a3YrBqks9R5ix djsmrB+1bhx3HggsmqcGt52nFl7w/01-13T04:43:00Associated Order(s): EKG-12 Lead ROUTINE ONCEPre-Procedure Diagnose(s): Chest pain, unspecified typePost-Procedure Diagnose(s): Chest pain, unspecified type [facility] Emergency Department NotePatient Name: Rnady BrionesDate of : 1970 53 year old maleTreatment Room: WA1/IQ1Wkcawuh Record Number: [id number] Care Physician: Adrianna King Escorted by: Family [5]Mode of Arrival: Personal means [1]EMS Treatment 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 METABOLIC PANEL (58849) - AbnormalResult Value Ref RangeNA 138 135 [...] 49 (*) 13 - 40 U/LeGFR 93.3 mL/min/1.01a9QPT WITH DIFF - AbnormalWBC 11.59 (*) 4.20 [...] 220 U/LCOVID-19 (ID NOW RAPID TESTING) - TbmvhcKTDE-AsX-1 Rapid ID NOW Not Detected Not DetectedETHANOLALCOHOL 62 mg/dLEKG:If EKG completed, see Procedure Note.Orders and Treatments:Orders Placed This EncounterProcedures XR CHEST 1 VW TROPONIN I COMP. METABOLIC PANEL (79265) LIPASE, SERUM CBC WITH DIFF N-Terminal Pro-Bnp Ethanol COVID-19 (ID NOW TESTING) Lab Only COVID Interpretation O2 Per ProtocolOrders Placed This EncounterMedications morpHINE (4 mg/mL) injection 4 mg ondansetron (ZOFRAN (PF)) injection 4 mg ipratropium-albuteroL (DUONEB) 0.5 mg-3 mg(2.5 mg base)/3 mL nebulizer solution 3 mLFirst Provider Eval:ED EventsDate/Time Event User Hvdzbnpf31/07/24 0510 Medical Screening Begins TERESSA VARGAS, JAC Rossi --01/14/24 0510 First Provider Evaluation JAC NAVARRO MD --ED COURSEDiagnosis/Impression as of 01/14/24 0605Chest pain, unspecified typeBronchitisProcedures:EKG-12 Lead ROUTINE ONCEDate/Time: 01/14/2024 5:24 AMPerformed by: Jac Navarro MDAuthorized by: Jac Navarro MDECG interpreted by ED Physician in the absence of a sketch maker: yesPrevious ECG:Previous ECG: Compared to currentSimilarity: No [...] on fileFollow-up:Electronically signed by:Jac Navarro MD01/14/24 0600 66661-9Wuulpvcsi Emergency department ZmcyTI8791-78-65W68:00:50Physician Emergency department NoteTXT1.2.840.102144.1.13.104.2.7. 2.188327|[id number] for patient wida84649-0Qckigloqa department NoteLNNARRATIVEFormatted C-CDA narrative text[address] Fix[id number] 7FXPWEXRSIUSCWRERPVMADV3528-95-63L8 6:00:501.2.840.592515.1.72.3.15|1.2 .840.687984.1.13.104.2.7.2.727879_2 [id number] [facility] 2023-12-22 23:12:16 OfR1+ahWbjAtnV0ZJkJU3jmRVbu1WhSMdI3 nJObMhzftBPMsCfVd70w0CnLsg7tB4588-4 12-22T23:12:16 Pt given printed and verbal discharge [...] with steady gait, in no apparent distress, 28327-7Tqcmmmuqs department LcuqUC2382-20-53B03:13:50Emergency department NoteTXT1.2.840.494083.1.13.104.2.7. 2.141774|[id number] for patient dwgp70597-8NiteUDZLEBNSTVEOakkrzyid C-CDA narrative [id number] Magaña RN[address] Ws[id number] 4SKKMUKPZSUQTDDNQCSKLZJ9922-50-31D7 3:13:501.2.840.111578.1.72.3.15|1.2 .840.042649.1.13.104.2.7.2.727879_2 [id number] Mary Magaña RN [facility] 2023-12-22 21:41:55 bLEvQ7SxlF15OlDhmmzxhLPaKZWVCHetUVq dPTEYLbkzguSlqAint2k+8+TEJ3U25029-9 12-22T21:41:55 Pt arrives ambulatory to ED reporting bleeding with stools and 10/10 abdominal pain. States he was here last night but had to leave before receiving results d/t having to work. Says the pain became worse so he came back in. [address]-3Gwhecnhyh department Triage ibmdTN0834-22-67H59:48:52[facility] department Triage noteTXT1.2.840.653791.1.13.104.2.7. 2.224409|[id number] for patient gmbn23988-2Qkyeqafho department NoteLNNARRATIVEFormatted C-CDA narrative [id number] L Williams RN[address] Ef[id number] 4UZRNAVAZTNMMQROKMZISRB7222-24-65Y3 1:48:521.2.840.522987.1.72.3.15|1.2 .840.481510.1.13.104.2.7.2.727879_2 [id number] Leah Lizama RN [facility] 2023-12-21 21:31:00 Ke8VdMlJZ+k8MjQ7oK/JD1A3Hctd55Oc3o9 11zog+WYrJTBTB8Y+ktb3Hl1m5n5O0272-6 12-21T21:31:00 Patient leaving AMA,discussed risks of leaving against medical advice, Dr. Maciel aware and notified of patient's decision.Patient encouraged to seek medical attention for any new/prolonged/worsening of symptoms and stressed importance of follow up with a medical provider as soon as possible. AMA form explained, patient signed form.IV d'cd, dressing to site.Patient leaving ambulatory with steady gait, appears in no distress. 03204-8Pywedmczg department SockJC3615-85-57U80:38:39[facility] NoteTXT1.2.840.942790.1.13.104.2.7. 2.312295|[id number] for patient gycb28302-7OucpMZCBIDHQAHSUexgvmose C-CDA narrative [id number] Magaña RN[id number] 6NMOSOQGQZPEAIMDEWGUIMQ3218-83-74I0 1:38:391.2.840.636985.1.72.3.15|1.2 .840.952410.1.13.104.2.7.2.727879_2 [id number] Mary Magaña RN [facility] 2023-12-21 21:30:00 5Pw6Kf+DmrJ2XIU42juqkLynEzRnKHJUbzy 1x3LR+ptQHG5zG5QJ31gRF/nrTibS3814-9 12-21T21:30:00 Pt wished to leave AMA. Pt states " yall were wonderful but 3am come real early." 51812-3Oxeskdmxw department LjkxXX3772-47-56K55:36:58[facility] NoteTXT1.2.840.296002.1.13.104.2.7. 2.848572|[id number] for patient dyvx50335-7QmylHKCGIJFXTXVFasmyafhp C-CDA narrative text[id number] 5ZISLHOWMFHONJLVSASJVWS4876-47-79O2 1:36:581.2.840.345365.1.72.3.15|1.2 .840.645181.1.13.104.2.7.2.727879_2 [id number] [facility] 2023-12-21 21:26:22 QHrwvVoCkgMbhoIH8n3OmFmIwYNLjzeXlGG 3MRRrP4yDHk0tlo0LMaDB3o9YhJjk0380-2 12-21T21:26:22 Pt asking to go outside and smoke, wants to go home and eat. Pt educated on risks of leaving AMA. Provider informed pt is in pain. 88482-9Lmghcasdf department AysbYW8963-12-67Z54:33:35[facility] NoteTXT1.2.840.334297.1.13.104.2.7. 2.742343|[id number] for patient xfzw83341-0PjkgEEHZWMBIATJNjfxoffzh C-CDA narrative [id number] R Shehadeh RN[address]Qs[id number] 3VHYLOCVZTJKSUQPLXUIWIC8455-87-16C5 1:33:351.2.840.680545.1.72.3.15|1.2 .840.390205.1.13.104.2.7.2.727879_2 [id number] eLah King RN [facility] 2023-12-21 19:31:50 7ux9+2etZDc8XdtsT4tBA6qDLlAVv5qBpqd WxWKypA1gpYiHe9qLiFMr8tx+QQlQ4547-3 12-21T19:31:50 Pt arrived ambulatory with complaints of bright red rectal bleeding and generalized abdominal pain this afternoon. Pt states his stool was normal consistency but continuous bright red blood. Denies this happening before.Pt is an alcoholic, had 2 beer [employer]. States he vomits all the time but not something new today. 97225-5Qdhkuxjrb department Triage yhcuAP7004-76-16H92:33:28[facility] department Triage noteTXT1.2.840.338227.1.13.104.2.7. 2.303801|[id number] for patient ortc61580-8Gduyttvuo department NoteLNNARRATIVEFormatted C-CDA narrative [id number] D Roman RN[address] Nt[id number] 7RMQPTSYMEYJCQBXTKWHWAJ6841-16-59W1 9:33:281.2.840.852431.1.72.3.15|1.2 .840.999958.1.13.104.2.7.2.727879_2 [id number] Gabi Esqueda RN [facility] 2023-11-10 20:13:39 vdKjbPCJFs9VbgFATGi0IldD99r/TlPnCn4 [facility] hospital/[id number] 11-10T20:13:39 Pt requesting to leave AMA. ERP notified. Pt counseled to remain, risks of leaving AMA including discussed with pt. Pt continued to decline further ER evaluation at this time. AMA papers signed, witnessed, and placed on patient's chart. Pt left ambulatory. VS stable, no ataxia noted, GCS 15, A&Ox4. [id number] department [id number]:13:52[facility] department [id number]. [id number] for patient [id number] C-CDA narrative [id number] R Goodrich RN[id number] 0:13:[id number]|1.2 .[id number] Briseida Medrano RN [facility] 2023-11-10 19:30:29 o2Or5/FqG6k7C0tyl+7HHtdmVtxF/EYpEtf VTKXjzL5LXmU/kxKj07cEt6MW8j4a5980-1 11-10T19:30:29 Patient arrived to ED c/o SOB and COPD exacerbation. Symptoms started this morning. Patient wears 3L NC at home. Patient is a smoker. Patient states having the chills, diarrhea, and vomiting. States having sharp pains in chest from coughing. [id number] department Triage [id number]:35:27[facility] Triage [id number]. [id number] for patient [id number] department NoteLNNARRATIVEFormatted C-CDA narrative [id number] McInnis RNUT[id number] 9:35:[id number]|1.2 .[id number] Sreedhar Gomez RN [facility]
[2024-02-22] MEDS ORDERED: ALBUTEROL 2.5 MG/3 ML NEB SOL ONE (21:24)
[2024-02-22] MEDS ORDERED: IPRATROPIUM BROM 0.5MG/2.5ML ONE (21:24)
[2024-02-22] MEDS ORDERED: METHYLPREDNISOLONE 125 MG INJ ONE (21:24)
[2024-02-22] MEDS ORDERED: ONDANSETRON 4 MG/2 ML VIAL ONE (21:28)
[2024-02-22] MEDS ORDERED: LORazepam 2 MG/ML VIAL ONE (21:29)
[2024-02-22 21:54] LABS: Absolute Basophils 0.1 K/uL (0-0.5); Absolute Lymphocytes (CBC) 1.2 K/uL (0.7-4.9); Absolute Monocytes 0.7 K/uL (0.1-1.3); Absolute Neutrophil 6.8 K/uL (1.8-8.0); Eosinophils % 0.2 % (0-4.4); Hematocrit 43.5 % (39.6-49.0); Hemoglobin 14.5 g/dL (13.6-17.9); Lymphocytes % 13.3 % (15.3-44.8); MCH 32.8 pg (27.0-35.0); MCHC 33.4 g/dL (32.0-36.0); MCV 98.3 fL (80-100); MPV 7.4 fL (7.6-11.3); Monocytes % 8.1 % (3.3-12.3); Neutrophils % 77.4 % (41.7-73.7); Platelets 349 thou/uL (152-406); RBC Red Blood Cell Count 4.43 M/uL (4.33-5.43); Red Cell Distribution Width 15.3 % (12.1-15.2)
[2024-02-22 22:00] LABS: Albumin 3.6 g/dL (3.4-5.0); Albumin/Globulin Ratio 0.9 (1.1-1.8); Bilirubin Direct 0.2 mg/dL (0-0.2); Bilirubin Indirect, Calculated 0.3 mg/dL (0.2-0.8); Bilirubin Total 0.5 mg/dL (0.2-1.0); Globulin 4.1 g/dL (2.3-3.5); Protein, Total 7.7 g/dL (6.4-8.2)
[2024-02-22] MEDS ORDERED: KETOROLAC 30 MG/ML INJ ONE (23:09)
[2024-02-22] MEDS ORDERED: HYDROCODONE/APAP 10/325 TAB ONE (23:09)
--- NOTE | 2024-02-22 23:14 | EDPHYS ---
Physician Documentation [facility] Name: Randy Briones Age: 53 yrs Sex: Male : 1970 Arrival Date: 02/22/2024 Time: 20:33 Bed 7 Private MD: ED Physician Jose Crews HPI: 02/21 20:41 This 53 yrs old Male presents to ER via Unassigned with complaints of sp4 Shortness Of Breath, WITHDRAWAL FROM DRINKING. 23:05 53-year-old male with history of alcoholism COPD, hepatitis B , on home O2, presents sp4 with acute worsening of shortness of breath feeling unwell also feeling shakes from alcohol withdrawal.. Historical: - Allergies: 21:00 Lisinopril; nj1 - PMHx: 21:00 Alcoholism; COPD; Hepatitis B (Hypertension); home 02 3LNC PRN; Hypertension; nj1 Osteoporosis; - PSHx: 21:00 Amputation of left index finger; nj1 - Immunization history:: Client reports receiving the 2nd dose of the Covid vaccine. - Infectious Disease History:: Denies. - Social history:: Smoking status: Patient reports the use of cigarette tobacco products, smokes one pack cigarettes per day. - Family history:: not pertinent. ROS: 23:05 Constitutional: Negative for fever, chills, and weight loss, positive for shortness of sp4 breath, positive for within 30 minutes secondary to withdrawal, positive for anxiety 23:05 All other systems are negative, Exam: 23:05 Constitutional: This is a well developed, well nourished patient who is awake, alert, sp4 tremulous male, dyspneic on arrival Head/Face: Normocephalic, atraumatic. Eyes: Pupils equal round and reactive to light, extra-ocular motions intact. Lids and lashes normal. Conjunctiva and sclera are not injected. Cornea within normal limits. Periorbital areas with no swelling, redness, or edema. ENT: Nares patent. No nasal discharge, no septal abnormalities noted. Tympanic membranes are normal and external auditory canals are clear. Oropharynx with no redness, swelling, or masses, exudates, or evidence of obstruction, uvula midline. Mucous membranes moist. Neck: Trachea midline, no thyromegaly or masses palpated, and no cervical lymphadenopathy. Supple, full range of motion without nuchal rigidity, or vertebral point tenderness. Chest/axilla: Normal chest wall appearance and motion. Nontender with no deformity. No lesions are appreciated. Cardiovascular: Regular rate and rhythm with a normal S1 and S2. No gallops, murmurs, or rubs. Normal PMI, no JVD. No pulse deficits. Respiratory: Lungs have equal breath sounds bilaterally, diffuse expiratory wheezes on auscultation in all lung lozano.. No rales, rhonchi . No increased work of breathing, no retractions or nasal flaring. Abdomen/GI: Soft, with normal bowel sounds. No distension or tympany. No guarding or rebound. No evidence of tenderness throughout. Back: No spinal tenderness. No costovertebral tenderness. Skin: Warm, dry with normal turgor. Normal color with no rashes, no lesions, and no evidence of cellulitis. MS/ Extremity: Pulses equal, no cyanosis. Neurovascular intact. Full, normal range of motion. Neuro: Awake and alert, GCS 15, oriented to person, place, time, and situation. Cranial nerves II-XII grossly intact. Motor strength 5/5 in all extremities. Sensory grossly intact. Psych: Awake, alert, with orientation to person, place and time. Behavior, mood, and affect are within normal limits 23:05 ECG was reviewed by the Attending Physician. Sinus tachycardia at the rate of 104, at sp4 2120, otherwise normal EKG Vital Signs: 20:58 BP 103 / 82; Pulse 118; Resp 20; Temp 98.2(O); Pulse Ox 97% ; Weight 79.38 kg; Height 5 nj1 ft. 4 in. ; 21:40 Pulse 103; Resp 19; Pulse Ox 100% on Nebulizer Mask; rv 23:14 BP 143 / 94; Pulse 106; Resp 18; Temp 98; Pulse Ox 99% ; rv 20:58 Body Mass Index 30.04 (79.38 kg, 162.56 cm) nj1 Berthold Coma Score: 21:40 Eye Response: spontaneous(4). Motor Response: obeys commands(6). Verbal Response: rv oriented(5). Total: 15. 23:14 Eye Response: spontaneous(4). Motor Response: obeys commands(6). Verbal Response: rv oriented(5). Total: 15. MDM: 20:45 Patient medically screened. sp4 23:05 Differential diagnosis: Anemia Anxiety Reaction asthma, Bronchitis CHF exacerbation, sp4 Chronic Obstructive Pulmonary Disease. Data reviewed: vital signs, old medical records, lab test result(s), EKG. Consideration of Admission/Observation Escalation of care including admission/observation considered. ED course: Patient has improved after management in the ER. Patient is stable for discharge home. . 02/21 20:44 Order name: Basic Metabolic Panel; Complete Time: 23: [facility] 02/21 20:44 Order name: CBC with Diff; Complete Time: 23: [facility] 02/21 20:44 Order name: LFT's; Complete Time: 23: [facility] 02/21 20:44 Order name: Alcohol Level; Complete Time: : [facility] 02/21 20:45 Order name: PT-INR; Complete Time: 23: [facility] 02/21 20:44 Order name: Cardiac monitoring; Complete Time: 21: [facility] 02/21 20:44 Order name: EKG - Nurse/Tech; Complete Time: 21:30 [facility] 02/21 20:44 Order name: IV Saline Lock; Complete Time: 21:30 4 02/21 20:44 Order name: Labs collected and sent; Complete Time: 21:30 [facility] 02/21 20:44 Order name: O2 Per Protocol; Complete Time: 21: [facility] 02/21 20:44 Order name: O2 Sat Monitoring; Complete Time: 21:07 sp4 EC:05 Rate is 104 beats/min. Rhythm is regular, Sinus tachycardia. QRS [place] is Normal. NC sp4 interval is normal. QRS interval is normal. QT interval is normal. No Q waves. T waves are Normal. No ST changes noted. Clinical impression: No evidence of ischemia. Interpreted by me. Reviewed by me. Administered Medications: 21:29 Drug: DuoNeb Nebulize (2.5 mg - 0.5 mg) 3 ml Nebulizer once Route: Nebulizer; rv 23:14 Follow up: Response: No adverse reaction; Marked relief of symptoms; Wheezing diminishedrv 21:38 Drug: Ativan IVP 2 mg IVP once Route: IVP; Site: right forearm; rv 23:14 Follow up: Response: No adverse reaction; Marked relief of symptoms rv 21:38 Drug: Ondansetron IVP 4 mg IVP once; over 2 minutes Route: IVP; Site: right forearm; rv 23:14 Follow up: Response: No adverse reaction; Marked relief of symptoms rv 21:38 Drug: MethylPrednisoLONE IVP 125 mg IVP once Route: IVP; Site: right forearm; rv 23:14 Follow up: Response: No adverse reaction; Marked relief of symptoms rv 23:13 Drug: [place] PO 10 mg-325 mg 1 tabs PO once Route: PO; rv 23:14 Follow up: Response: Medication administered at discharge. rv 23:13 Drug: Ketorolac IVP 30 mg IVP once Route: IVP; Site: right forearm; rv 23:14 Follow up: Response: Medication administered at discharge. rv Disposition Summary: 02/22/24 23:13 Discharge Ordered Notes: Location: Home sp4 Problem: new sp4 Symptoms: have improved sp4 Condition: Stable sp4 Diagnosis - Alcohol dependence with withdrawal sp4 - COPD/ Chronic obstructive pulmonary disease with (acute) exacerbation sp4 Followup: sp4 - With: Private Physician - When: 7 - 10 days - Reason: Recheck today's complaints Discharge Instructions: - Discharge Summary Sheet sp4 - Alcohol Withdrawal Syndrome, Xzzh-wz-Rjei sp4 Forms: - Patient Portal Instructions sp4 Prescriptions: - chlordiazepoxide HCl 25 mg Oral capsule - take 1 capsule ORAL route every 12 hours for 10 days; 20 capsule; Refills: 0, sp4 Product Selection Permitted Signatures: Dispatcher [employer] Darrius Wen RN RN Jose Sexton MD MD sp4 Liv Butler RN RN nj1 Corrections: (The following items were deleted from the chart) 20:45 20:45 ETHANOL+C.LAB.BRZ ordered. EDMS EDMS
--- NOTE | 2024-02-22 23:14 | ER ---
Nurse's Notes [facility] Name: Randy Briones Age: 53 yrs Sex: Male : 1970 Arrival Date: 02/22/2024 Time: 20:33 Bed 7 Private MD: Diagnosis: Alcohol dependence with withdrawal;COPD/ Chronic obstructive pulmonary disease with (acute) exacerbation Presentation: 02/21 20:58 Chief complaint: Patient states: Shortness of breath for a couple days. Stopped nj1 drinking about 2 days ago. Coronavirus screen: Vaccine status: Patient reports receiving the 2nd dose of the covid vaccine. Ebola Screen: Patient denies travel to an Ebola-affected area in the 21 days before illness onset. Initial Sepsis Screen: Does the patient meet any 2 criteria? HR > 90 bpm. No. Patient's initial sepsis screen is negative. Does the patient have a suspected source of infection? No. Patient's initial sepsis screen is negative. Risk Assessment: Do you want to hurt yourself or someone else? Patient reports no desire to harm self or others. Onset of symptoms was February 20, 2024. 20:58 Method Of Arrival: Ambulatory [facility] 20:58 Acuity: CANDACE 3 [facility] Triage Assessment: 21:41 Respiratory: Reports shortness of breath Onset: The symptoms/episode began/occurred the rv patient has moderate shortness of breath. Historical: - Allergies: 21:00 Lisinopril; nj1 - PMHx: 21:00 Alcoholism; COPD; Hepatitis B (Hypertension); home 02 3LNC PRN; Hypertension; nj1 Osteoporosis; - PSHx: 21:00 Amputation of left index finger; nj1 - Immunization history:: Client reports receiving the 2nd dose of the Covid vaccine. - Infectious Disease History:: Denies. - Social history:: Smoking status: Patient reports the use of cigarette tobacco products, smokes one pack cigarettes per day. - Family history:: not pertinent. Screenin:39 [facility] ED Fall Risk Assessment (Adult) History of falling in the last 3 months, rv including since admission No falls in past 3 months (0 pts) Score/Fall Risk Level 0 - 2 = Low Risk Oriented to surroundings, Maintained a safe environment, Educated pt \T\ family on fall prevention, incl call for assistance when getting out of bed, Assessed \T\ reinforced patient's understanding of fall precautions. Abuse screen: Denies threats or abuse. Denies injuries from another. Nutritional screening: No deficits noted. Tuberculosis screening: No symptoms or risk factors identified. Assessment: 21:40 General: Appears uncomfortable, ill, Behavior is agitated. Pain: Complains of pain in rv generalized. Neuro: Level of Consciousness is awake, alert, obeys commands, Oriented to person, place, time, situation. Cardiovascular: Capillary refill < 3 seconds Patient's skin is warm and dry. Rhythm is sinus tachycardia. Respiratory: Airway is patent Respiratory effort is labored, Respiratory pattern is tachypnea Breath sounds with wheezes bilaterally. GI: No signs and/or symptoms were reported involving the gastrointestinal system. : No signs and/or symptoms were reported regarding the genitourinary system. Derm: Skin is healthy with good turgor. 23:14 Reassessment: Patient and/or family updated on plan of care and expected duration. Pain rv level reassessed. Patient is alert, oriented x 3, equal unlabored respirations, skin warm/dry/pink. Patient states feeling better. Patient states symptoms have improved. Vital Signs: 20:58 BP 103 / 82; Pulse 118; Resp 20; Temp 98.2(O); Pulse Ox 97% ; Weight 79.38 kg; Height 5 nj1 ft. 4 in. ; 21:40 Pulse 103; Resp 19; Pulse Ox 100% on Nebulizer Mask; rv 23:14 BP 143 / 94; Pulse 106; Resp 18; Temp 98; Pulse Ox 99% ; rv 20:58 Body Mass Index 30.04 (79.38 kg, 162.56 cm) nj1 Shani Coma Score: 21:40 Eye Response: spontaneous(4). Motor Response: obeys commands(6). Verbal Response: rv oriented(5). Total: 15. 23:14 Eye Response: spontaneous(4). Motor Response: obeys commands(6). Verbal Response: rv oriented(5). Total: 15. ED Course: 20:36 Patient arrived in ED. gm2 20:41 Jose Crews MD is Attending Physician. sp4 21:00 Triage completed. nj1 21:01 Arm band placed on right wrist. nj1 21:21 Darrius Nayak RN is Primary Nurse. rv 21:35 EKG done, by vacuum technician. reviewed by Jose Crews MD. oe 21:39 Patient has correct armband on for positive identification. Client placed on continuous rv cardiac and pulse oximetry monitoring. NIBP monitoring applied. quality assurance monitor body on. 21:39 Basic Metabolic Panel Sent. rv 21:39 CBC with Diff Sent. rv 21:39 LFT's Sent. rv 21:39 PT-INR Sent. rv 21:39 Initial lab(s) drawn, by ED staff, sent to lab. Inserted saline lock: 20 gauge in right rv forearm, using aseptic technique. Blood collected. 21:39 Inserted saline lock: 20 gauge in right forearm, using aseptic technique. Blood oe collected. 21:41 No provider procedures requiring assistance completed. rv 23:15 IV discontinued, intact, bleeding controlled, No redness/swelling at site. Pressure rv dressing applied. Administered Medications: 21:29 Drug: DuoNeb Nebulize (2.5 mg - 0.5 mg) 3 ml Nebulizer once Route: Nebulizer; rv 23:14 Follow up: Response: No adverse reaction; Marked relief of symptoms; Wheezing diminishedrv 21:38 Drug: Ativan IVP 2 mg IVP once Route: IVP; Site: right forearm; rv 23:14 Follow up: Response: No adverse reaction; Marked relief of symptoms rv 21:38 Drug: Ondansetron IVP 4 mg IVP once; over 2 minutes Route: IVP; Site: right forearm; rv 23:14 Follow up: Response: No adverse reaction; Marked relief of symptoms rv 21:38 Drug: MethylPrednisoLONE IVP 125 mg IVP once Route: IVP; Site: right forearm; rv 23:14 Follow up: Response: No adverse reaction; Marked relief of symptoms rv 23:13 Drug: [place] PO 10 mg-325 mg 1 tabs PO once Route: PO; rv 23:14 Follow up: Response: Medication administered at discharge. rv 23:13 Drug: Ketorolac IVP 30 mg IVP once Route: IVP; Site: right forearm; rv 23:14 Follow up: Response: Medication administered at discharge. rv Medication: 21:41 VIS not applicable for this client. rv Outcome: 23:13 Discharge ordered by MD. monae 23:15 Discharged to home ambulatory, rv 23:15 Condition: good 23:15 Discharge instructions given to patient, Instructed on discharge instructions, follow up and referral plans. Demonstrated understanding of instructions, follow-up care, 23:25 Patient left the ED. jj7 Signatures: Kentrell Christian Ronaldo, RN RN Omega Ibarra RN RN jj7 Jose Crews MD MD sp4 Liv Butler RN RN nj1 Bonnie Sylvester 2
[2024-02-23 06:03] VITALS: BP 143/94; TEMP 98; O2SAT 99
== END 2024-02-22 23:25 | disposition home or self-care (01) ==
LOC: ER 20:33
DX: F10.239 Alcohol dependence with withdrawal, unspecified (principal); J44.1 Chronic obstructive pulmonary disease with (acute) exacerbation; Z99.81 Dependence on supplemental oxygen; I10 Essential (primary) hypertension; F17.210 Nicotine dependence, cigarettes, uncomplicated; Z88.8 Allergy status to other drugs, medicaments and biological substances
CPT/HCPCS: 93005; 85025; 80048; 36415; 85610; 80076; 94640; 96375; 96374; 99285; 82077; J7613; J7644; J2930; J2405

== ENCOUNTER 2024-03-15 03:26 | Emergency (ER) | payer OTHER, SELFPAY ==
--- OUTSIDE RECORDS SUMMARY | 2024-03-15 03:32 | XMS REPORT | Continuity of Care Document ---
Author Name Unknown Address [address] [facility] [address] [place] [address] [facility] Address [address] [facility] [place] [address] Care Team Providers Care Development Eng Name Role Phone ADRIANNA LOPEZ Primary Care Physician Unavailab WENDY High Attending Clinician Unava ilPEG Ruiz Attending Clinician Unavailable Peg Camp NP Attending Clinician [phone] URSULA QUINTANILLA Attending Clinician Unavailable DEMETRIA DAVENPORT Attending Clinician UnaDemetria Carver MD Attending Clinician + Christina Victoria Attending Clinician [phone] JAC NAVARRO Attending Clinician Unavailable Jac Navarro MD Attending Clinician [phone] TYLER ROWE Attending Clinician Unavailab MELINDA Boothe [...] Number Effective Date Expirati on Date Source [facility] [id number] 2023 00:00:00 2024 00:00:00 [employer] [id number] 2023 00:00:00 [employer] 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[employer] 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 ON 9 [id number] 2023 00:00:00 Problems Condition Name Condition Details Condition Category Status Onset Date Resolution Date Last Treatment Date Treating Clinician Comments Source Acute exacerbati on of chronic obstructiv e pulmonary disease (COPD) Acute exacerbati on of chronic obstructiv e pulmonary disease (COPD) Disease Active 03-24 00:00: 00 [facility] Obesity (BMI 30-39.9) Obesity (BMI 30-39.9) Disease Active 03-24 00:00: 00 [facility] Allergies, Adverse Reactions, Alerts Allergy Name Allergy Type Status Severity Reaction(s) Onset Date Inactive Date Treating Clinician Comments Source Lisinopr il Propensi ty to adverse reaction s Active Anaphylaxis 03-24 00:00: 00 [facility] LISINOPR IL DRUG INGREDI Active Anaphylaxis 03-24 00:00: 00 [facility] Social History Social Habit Start Date Stop Date Quantity Comments Source History of tobacco use Smokes tobacco daily [facility] of Social function 2024-02-08 00:00:00 2024-02-08 00:00:00 [facility] Alcohol intake 2024-02-08 00:00:00 2024-02-08 00:00:00 4.29 /d [facility] Exposure to SARS-CoV-2 (event) 2022-10-04 00:00:00 2022-10-14 10:25:00 Not sure [facility] Tobacco use and exposure 2018-03-24 00:00:00 2018-03-24 00:00:00 User of smokeless tobacco [facility] Tobacco Comment 2018-03-24 00:00:00 2018-03-24 00:00:00 trying to quit [facility] Sex Assigned At 1970 00:00:00 1970 00:00:00 [facility] Smoking Status Start Date Stop Date Source Smokes tobacco daily 2018-03-24 00:00:00 [facility] Medications Ordered Medication Name Filled Medication Name Start Date Stop Date Current Medication? Ordering Clinician Indication Dosage Frequency Signature (SIG) Comments Components Source ketorolac (TORADOL) injection 30 mg 02-17 03:15: 00 02-17 15:14 :00 Yes 30mg 30 mg, Slow IV Push, ONCE, 1 dose, On Thu02/17/24 at 2215, Routine [facility] methylpredn isolone sod succ (SOLU-MEDRO L) injection 125 mg 02-17 03:00: 00 02-17 14:59 :00 Yes 125mg 125 mg, Intravenou s, ONCE, 1 dose, On Thu02/17/24 at 2200, 2 mL [facility] ipratropium -albuteroL (DUONEB) 0.5 mg-3 mg(2.5 mg base)/3 mL nebulizer solution 6 mL 02-17 03:00: 00 02-17 14:59 :00 Yes 6mL 6 mL, Inhalation , ONCE NOW, 1 dose, On Thu02/17/24 at 2200, Routine [facility] NaCl 0.9% (NS) bolus infusion 1,000 mL 02-17 03:00: 00 02-17 14:59 :00 Yes 1000mL at 999 mL/hr, 1,000 mL, IV Infusion, ONCE, 1 dose, On Thu02/17/24 at 2200, LAURYN [facility] triamterene -hydrochlor othiazide 37.5-25 mg per capsule 02-16 20:52: 37 02-16 00:00 :00 No 1{capsu le} Take 1 capsule by mouth every morning. [facility] albuterol 5 mg/mL nebulizer solution 02-16 20:51: 42 02-16 00:00 :00 No 2.5mg Inhale 2.5 mg every 6 (six) hours as needed for Wheezing or Shortness of Breath. [facility] ketorolac (TORADOL) injection 15 mg 02-08 03:00: 00 02-08 02:21 :00 No 15mg 15 mg, Slow IV Push, ONCE, 1 dose, On Thu02/08/24 at 2200, Routine [facility] iopamidol (ISOVUE 370-500 mL) injection 100 mL 02-07 22:30: 00 02-07 22:30 :00 Yes [id number] 100mL 100 mL, Intravenou s, ONCE, 1 dose, On Thu02/08/24 at 1730, Routine [facility] ipratropium -albuteroL (DUONEB) 0.5 mg-3 mg(2.5 mg base)/3 mL nebulizer solution 3 mL 02-07 21:15: 00 02-07 20:45 :00 No 3mL 3 mL, Inhalation , ONCE, 1 dose, On Thu02/08/24 at 1615, Routine [facility] morpHINE (2 mg/mL) injection 4 mg 02-07 21:15: 00 02-07 20:27 :00 No 4mg 4 mg, Slow IV Push, ONCE, 1 dose, On Thu02/08/24 at 1615, STAT [facility] ondansetron (ZOFRAN (PF)) injection 4 mg 02-07 21:15: 00 02-07 20:22 :00 No 4mg 4 mg, Slow IV Push, ONCE, 1 dose, On Thu02/08/24 at 1615, [facility] magnesium sulfate in water 2 gram/50 mL (4 %) infusion 2 g 02-07 21:00: 00 02-07 21:30 :00 No 2g 2 g, IV Piggyback, Administer over 60 Minutes, ONCE, 1 dose, On Thu02/08/24 at 1600, Routine [facility] ipratropium -albuteroL (DUONEB) 0.5 mg-3 mg(2.5 mg base)/3 mL nebulizer solution 3 mL 02-07 20:30: 00 02-07 19:31 :00 No 3mL 3 mL, Inhalation , ONCE, 1 dose, On Thu02/08/24 at 1530, Routine [facility] HYDROcodone -acetaminop hen (NORCO) 10-325 mg tablet 1 tablet 01-13 13:15: 00 01-13 12:15 :00 No 1{tbl} 1 tablet, Oral, ONCE, 1 dose, On Thu01/14/24 at 0715, [facility] ipratropium -albuteroL (DUONEB) 0.5 mg-3 mg(2.5 mg base)/3 mL nebulizer solution 3 mL 01-13 13:00: 00 01-13 11:53 :00 No 3mL 3 mL, Inhalation , ONCE NOW, 1 dose, On Thu01/14/24 at 0700, [facility] ondansetron (ZOFRAN (PF)) injection 4 mg 01-13 11:30: 00 01-13 11:37 :00 No 4mg 4 mg, Slow IV Push, ONCE, 1 dose, On Thu01/14/24 at 0530, [facility] morpHINE (4 mg/mL) injection 4 mg 01-13 11:30: 00 01-13 11:37 :00 No 4mg 4 mg, Slow IV Push, ONCE, 1 dose, On Thu01/14/24 at 0530, STAT [facility] azithromyci n (ZITHROMAX Z-PORTER) 250 mg tablet 01-13 00:00: 00 02-16 00:00 :00 No [id number] Take 500 mg on day 1 then 250 mg on days 2-5 [facility] predniSONE 20 mg tablet 01-13 00:00: 00 02-16 00:00 :00 No [id number] Take 1 po tid x 2 days, then take 1 po bid x 3 days, then take 1 po daily x 3 days. [facility] acetaminoph en-codeine 300-30 mg tablet 01-13 00:00: 00 01-21 04:59 :00 Yes [id number] 1{tbl} Take 1 tablet by mouth every 6 (six) hours as needed for Pain (scale 7-10) (severe cough) for up to 7 days. Indication s: acute pain, severe cough [facility] clonazePAM 1 mg tablet 12-26 00:00: 00 02-16 00:00 :00 No 1mg Take 1 tablet by mouth at bedtime as needed for Other (anxiety). [facility] KCL (KLOR-CON M20) tablet 40 mEq 12-23 05:00: 00 12-23 05:07 :00 No 40meq 40 mEq, Oral, ONCE, 1 dose, On Thu12/22/23 at 2300, [facility] NaCl 0.9% (NS) bolus infusion 1,000 mL 12-23 05:00: 00 12-23 05:09 :00 No 1000mL at 999 mL/hr, 1,000 mL, IV Infusion, ONCE, 1 dose, On Thu12/22/23 at 2300, [facility] ondansetron (ZOFRAN (PF)) injection 4 mg 12-23 04:30: 00 12-23 04:24 :00 No 4mg 4 mg, Slow IV Push, ONCE, 1 dose, On Thu12/22/23 at 2230, [facility] maalox:diph enhydrAMINE :lidocaine 2 % viscous 1:1:1 ([facility]) oral suspension 15 mL 12-23 04:15: 00 12-23 04:17 :00 No 15mL 15 mL, Oral, ONCE, 1 dose, On Thu12/22/23 at 2215, [facility]ine [facility] famotidine (PEPCID (PF)) injection 20 mg 12-23 04:15: 00 12-23 04:15 :00 No 20mg 20 mg, Slow IV Push, ONCE, 1 dose, On Thu12/22/23 at 2215, LAURYN [facility] HYDROcodone -acetaminop hen (NORCO) 10-325 mg tablet 1 tablet 12-22 04:30: 00 12-22 16:29 :00 Yes 1{tbl} 1 tablet, Oral, ONCE, 1 dose, On Thu12/21/23 at 2230, Routine [facility] pantoprazol e (PROTONIX) 80 mg in NaCl 0.9% (NS) 20 mL syringe 12-22 04:15: 00 12-22 16:14 :00 Yes 80mg 80 mg, IV Push, ONCE, 1 dose, On Thu12/21/23 at 2215, Administer over 2 Minutes, 20 mL [facility] iopamidol (ISOVUE 370-500 mL) injection 100 mL 12-22 03:30: 00 12-22 03:30 :00 No [id number] 100mL 100 mL, Intravenou s, ONCE, 1 dose, On Thu12/21/23 at 2130, Routine [facility] morpHINE (4 mg/mL) injection 4 mg 12-22 03:30: 00 12-22 02:16 :00 No 4mg 4 mg, Slow IV Push, ONCE, 1 dose, On Thu12/21/23 at 2130, Routine [facility] ondansetron (ZOFRAN (PF)) injection 4 mg 12-22 02:45: 00 12-22 02:02 :00 No 4mg 4 mg, Slow IV Push, ONCE, 1 dose, On Thu12/21/23 at 2045, Routine [facility] hydrocortis one 25 mg suppository 12-22 00:00: 00 Yes [id number] 25mg Insert 1 Suppositor y into rectum 2 (two) times daily as needed for Rectal itching/pa in. [facility] ondansetron 4 mg disintegrat ing tablet 12-22 00:00: 00 02-16 00:00 :00 No [id number] 4mg Take 1 tablet by mouth every 8 (eight) hours as needed for Nausea and Vomiting (N/V). [facility] amoxicillin -clavulanat e 875-125 mg per tablet 12-22 00:00: 00 01-02 05:59 :00 Yes [id number] 1{tbl} Take 1 tablet by mouth every 12 (twelve) hours for 10 days. [facility] methylpredn isolone sod succ (SOLU-MEDRO L) injection 125 mg 2022-11 08:45: 00 10-27 20:44 :00 No 125mg 125 mg, Slow IV Push, ONCE, 1 dose, On Thu10/27/23 at 0245, STAT [facility] ipratropium -albuteroL (DUONEB) 0.5 mg-3 mg(2.5 mg base)/3 mL nebulizer solution 3 mL 2022-11 08:45: 00 10-27 20:44 :00 No 3mL 3 mL, Inhalation , ONCE NOW, 1 dose, On Thu10/27/23 at 0245, LAURYN [facility] diazePAM (VALIUM) tablet 10 mg 2022-11 07:45: 00 10-27 19:44 :00 No 10mg 10 mg, Oral, ONCE, 1 dose, On Thu10/27/23 at 0145, LAURYN [facility] levoFLOXaci n (LEVAQUIN) tablet 500 mg 2022-11 07:45: 00 10-27 19:44 :00 No 500mg 500 mg, Oral, ONCE, 1 dose, On Thu10/27/23 at 0145, LAURYN
Re ason for Anti-Infec tive: Empiric Non-Surgic al Prophylaxi s
Durat ion of therapy: Once (ED) [facility] iopamidol (ISOVUE 370-500 mL) injection 70 mL 2021-11 18:30: 00 10-14 18:30 :00 No [id number] 70mL 70 mL, Intravenou s, ONCE, 1 dose, On Thu10/14/22 at 1230, Routine [facility] methylpredn isolone sod succ (SOLU-MEDRO L) injection 125 mg 2021-11 18:00: 00 Yes 125mg 125 mg, Intravenou s, Q6H, First dose on Thu10/14/22 at 1200, Until Discontinu ed, Routine [facility] furosemide (LASIX) injection 40 mg 2021-11 17:45: 00 10-14 16:39 :00 No 40mg 40 mg, IV Push, ONCE, 1 dose, On Thu10/14/22 at 1145, LAURYN [facility] ipratropium -albuteroL (DUONEB) 0.5 mg-3 mg(2.5 mg base)/3 mL nebulizer solution 3 mL 2021-11 17:30: 00 10-14 16:41 :00 No 3mL 3 mL, Inhalation , ONCE, 1 dose, On Thu10/14/22 at 1130, Routine [facility] FENTanyl PF (SUBLIMAZE (PF)) injection 50 mcg 2021-11 16:45: 00 10-14 16:39 :00 No 50ug 50 mcg, Slow IV Push, ONCE, 1 dose, On Thu10/14/22 at 1045, Routine [facility] levoFLOXaci n 750 mg tablet 2021-11 00:00: 00 02-16 00:00 :00 No [id number] 750mg Take 1 tablet by mouth every 24 (twenty-fo ur) hours. [facility] HYDROcodone -acetaminop hen (NORCO) 10-325 mg tablet 1 tablet 03-12 12:15: 00 03-12 11:21 :00 No 1{tbl} 1 tablet, Oral, ONCE, 1 dose, On Thu03/12/22 at 0715, Routine [facility] HYDROcodone -acetaminop hen 10-325 mg tablet 03-12 00:00: 00 03-20 04:59 :00 No [id number] 1{tbl} Take 1 tablet by mouth every 6 (six) hours as needed for Pain (scale 7-10) for up to 7 days. Indication s: acute pain [facility] ipratropium -albuteroL (DUONEB) 0.5 mg-3 mg(2.5 mg base)/3 mL nebulizer solution 3 mL 02-20 13:00: 00 Yes 3mL 3 mL, Inhalation , QID, First dose on Thu02/20/22 at 0800, Until Discontinu ed, Routine [facility] methylPREDN ISolone sod succ (SOLU-MEDRO L (PF)) injection 40 mg 02-20 11:45: 00 02-20 10:43 :00 No 40mg 40 mg, Intravenou s, ONCE, 1 dose, On Thu02/20/22 at 0645, STAT [facility] foLIC acid (FOLATE) tablet 1 mg 02-20 11:45: 00 02-20 10:41 :00 No 1mg 1 mg, Oral, ONCE, 1 dose, On Thu02/20/22 at 0645, LAURYN [facility] thiamine (VITAMIN B1) injection 100 mg 02-20 11:45: 00 02-20 10:43 :00 No 100mg 100 mg, Intravenou s, ONCE, 1 dose, On Thu02/20/22 at 0645, [facility]URYN [facility] LORazepam (ATIVAN) injection 2 mg 02-20 11:45: 00 02-20 10:42 :00 No 2mg 2 mg, Slow IV Push, ONCE, 1 dose, On Kym 02/20/22 at 0645, STAT [facility] ipratropium -albuteroL (DUONEB) 0.5 mg-3 mg(2.5 mg base)/3 mL nebulizer solution 3 mL 02-20 10:30: 00 02-20 09:34 :00 No 3mL 3 mL, Inhalation , ONCE, 1 dose, On Kym 02/20/22 at 0530, Routine [facility] albuterol 90 mcg/actuati on inhaler 02-20 00:00: 00 Yes [id number] 2{puff} Inhale 2 Puffs every 4 (four) hours as needed for Wheezing or Shortness of Breath. [facility] triamterene -hydrochlor othiazid 37.5-25 mg tablet 02-20 00:00: 00 Yes [id number] 1{tbl} Take 1 tablet by mouth daily. [facility] chlordiazeP OXIDE 25 mg capsule 02-20 00:00: 00 Yes [id number] 25mg Take 1 capsule by mouth every 6 (six) hours as needed for Anxiety, Agitation, Heart Rate => 100 or Detox. [facility] predniSONE 10 mg tablet 02-20 00:00: 00 02-16 00:00 :00 No [id number] TAKE ONE TABLET BY MOUTH DAILY [facility] albuterol 2.5 mg /3 mL (0.083 %) nebulizer solution 02-20 00:00: 00 02-16 00:00 :00 No [id number] 2.5mg Inhale 3 mL every 4 (four) hours. May also nebulize one extra every 6 hours. [facility] budesonide- formoteroL 160-4.5 mcg/actuati on inhaler 02-20 00:00: 00 02-16 00:00 :00 No [id number] 2{puff} Inhale 2 Puffs 2 (two) times daily. [facility] albuterol 5 mg/mL nebulizer solution 07-16 14:02: 20 Yes 2.5mg Inhale 2.5 mg every 6 (six) hours as needed for Wheezing or Shortness of Breath. [facility] budesonide- formoterol 160-4.5 mcg/actuati on inhaler 07-16 00:00: 00 Yes 2{puff} Inhale 2 Puffs 2 (two) times daily. [facility] albuterol 2.5 mg /3 mL (0.083 %) nebulizer solution 07-16 00:00: 00 Yes 2.5mg Inhale 3 mL every 4 (four) hours as needed for Wheezing or Shortness of Breath. [facility] triamterene -hydrochlor othiazide 37.5-25 mg per capsule 03-26 16:32: 14 Yes 1{capsu le} Take 1 capsule by mouth every morning. [facility] amLODIPine 10 mg tablet 03-26 16:32: 14 Yes 10mg Take 10 mg by mouth at bedtime. [facility] gabapentin 100 mg capsule 03-26 16:32: 14 Yes 100mg Take 100 mg by mouth 2 (two) times daily as needed ([facility] pain). [facility] foLIC acid 1 mg tablet 03-26 16:32: 14 Yes 1mg Take 1 mg by mouth daily. [facility] budesonide- formoterol 160-4.5 mcg/actuati on inhaler 03-26 00:00: 00 02-16 00:00 :00 No 2{puff} Inhale 2 Puffs 2 (two) times daily. [facility] Immunizations Ordered Immunization Name Filled Immunization Name Date Status Comments Source SARS-COV-2 COVID-19 PFIZER VACCINE 2021-02-03 00:00:00 Completed [facility] SARS-COV-2 COVID-19 PFIZER VACCINE 2021-02-03 00:00:00 Completed [facility] SARS-COV-2 COVID-19 PFIZER VACCINE 2021-02-03 00:00:00 Completed [facility] SARS-COV-2 COVID-19 PFIZER VACCINE 2021-01-13 00:00:00 Completed [facility] SARS-COV-2 COVID-19 PFIZER VACCINE 2021-01-13 00:00:00 Completed [facility] SARS-COV-2 COVID-19 PFIZER VACCINE 2021-01-13 00:00:00 Completed [facility] Pneumococcal Polysaccharide, PPSV23 (PNEUMOVAX) 2018-03-26 00:00:00 Completed [facility] Influenza Virus Vaccine Quad IM 3+ YRS 2018-03-26 00:00:00 Completed [facility] Pneumococcal Polysaccharide, PPSV23 (PNEUMOVAX) 2018-03-26 00:00:00 Completed [facility] Influenza Virus Vaccine Quad IM 3+ YRS 2018-03-26 00:00:00 Completed [facility] Pneumococcal Polysaccharide, PPSV23 (PNEUMOVAX) 2018-03-26 00:00:00 Completed [facility] Influenza Virus Vaccine Quad IM 3+ YRS 2018-03-26 00:00:00 Completed [facility] Pneumococcal Polysaccharide, PPSV23 (PNEUMOVAX) Unknown Completed [facility] Influenza Virus Vaccine Quad IM 3+ YRS Unknown Completed [facility] SARS-COV-2 COVID-19 PFIZER VACCINE Unknown Completed [facility] SARS-COV-2 COVID-19 PFIZER VACCINE Unknown Completed [facility] Pneumococcal Polysaccharide, PPSV23 (PNEUMOVAX) [facility] Influenza Virus Vaccine Quad IM 3+ YRS Unknown Completed [facility] SARS-COV-2 COVID-19 PFIZER VACCINE Unknown Completed [facility] SARS-COV-2 COVID-19 PFIZER VACCINE Unknown Completed [facility] Pneumococcal Polysaccharide, PPSV23 (PNEUMOVAX) Unknown [facility] Influenza Virus Vaccine Quad IM 3+ YRS Unknown Completed [facility] SARS-COV-2 COVID-19 PFIZER VACCINE Unknown Completed [facility] SARS-COV-2 COVID-19 PFIZER VACCINE Unknown Completed [facility] Pneumococcal Polysaccharide, PPSV23 (PNEUMOVAX) Unknown [facility] Influenza Virus Vaccine Quad IM 3+ YRS Unknown Completed [facility] SARS-COV-2 COVID-19 PFIZER VACCINE Unknown Completed [facility] SARS-COV-2 COVID-19 PFIZER VACCINE Unknown Completed [facility] Pneumococcal Polysaccharide, PPSV23 (PNEUMOVAX) Unknown Completed [facility] Influenza Virus Vaccine Quad IM 3+ YRS Unknown Completed [facility] SARS-COV-2 COVID-19 PFIZER VACCINE Unknown Completed [facility] SARS-COV-2 COVID-19 PFIZER VACCINE Unknown Completed [facility] Pneumococcal Polysaccharide, PPSV23 (PNEUMOVAX) Unknown Completed [facility] Influenza Virus Vaccine Quad IM 3+ YRS Unknown Completed [facility] SARS-COV-2 COVID-19 PFIZER VACCINE Unknown Completed [facility] SARS-COV-2 COVID-19 PFIZER VACCINE Unknown Completed [facility] Pneumococcal Polysaccharide, PPSV23 (PNEUMOVAX) Unknown Completed [facility] Influenza Virus Vaccine Quad IM 3+ YRS Unknown Completed [facility] SARS-COV-2 COVID-19 PFIZER VACCINE Unknown Completed [facility] SARS-COV-2 COVID-19 PFIZER VACCINE Unknown Completed [facility] Pneumococcal Polysaccharide, PPSV23 (PNEUMOVAX) Unknown Completed [facility] Influenza Virus Vaccine Quad IM 3+ YRS Unknown Completed [facility] SARS-COV-2 COVID-19 PFIZER VACCINE Unknown Completed [facility] SARS-COV-2 COVID-19 PFIZER VACCINE Unknown Completed [facility] Vital Signs Vital Name Observation Time Observation Value Comments S ource Systolic blood pressure 2024-02-18 01:57:00 134 mm[Hg] [facility] Diastolic blood pressure 2024-02-18 01:57:00 94 mm[Hg] [facility] Body height 2024-02-18 01:57:00 162.6 cm [facility] Body weight 2024-02-18 01:57:00 79.379 kg [facility] BMI 2024-02-18 01:57:00 30.04 kg/m2 [facility] Heart rate 2024-02-18 01:53:00 110 /min [facility] Body temperature 2024-02-18 01:53:00 36.61 Debbie [facility] Respiratory rate 2024-02-18 01:53:00 24 /min [facility] Oxygen saturation in Arterial blood by Pulse oximetry 2024-02-18 01:53:00 93 /min [facility] Systolic blood pressure 2024-02-09 01:54:05 150 mm[Hg] [facility] Diastolic blood pressure 2024-02-09 01:54:05 91 mm[Hg] [facility] Heart rate 2024-02-09 01:54:05 87 /min [facility] 2024-02-09 01:54:05 17 /min [facility] Oxygen saturation in Arterial blood by Pulse oximetry 2024-02-09 01:54:05 93 /min [facility] Body temperature 2024-02-09 01:45:00 36.67 Debbie [facility] Body height 2024-02-09 01:45:00 162.6 cm [facility] Body weight 2024-02-09 01:45:00 81.194 kg [facility] BMI 2024-02-09 01:45:00 30.73 kg/m2 [facility] Respiratory rate 2024-02-08 21:00:00 18 /min [facility] Oxygen saturation in Arterial blood by Pulse oximetry 2024-02-08 21:00:00 96 /min [facility] Systolic blood pressure 2024-02-08 20:27:00 164 mm[Hg] [facility] Diastolic blood pressure 2024-02-08 20:27:00 90 mm[Hg] [facility] Heart rate 2024-02-08 20:27:00 83 /min [facility] Body temperature 2024-02-08 19:12:00 36.83 Debbie [facility] Body height 2024-02-08 19:12:00 162.6 cm [facility] Body weight 2024-02-08 19:12:00 81.194 kg [facility] BMI 2024-02-08 19:12:00 30.73 kg/m2 [facility] Heart rate 2024-01-14 12:15:00 98 /min [facility] Body temperature 2024-01-14 12:15:00 36.56 Debbie [facility] Respiratory rate 2024-01-14 12:15:00 14 /min [facility] Oxygen saturation in Arterial blood by Pulse oximetry 2024-01-14 12:15:00 95 /min [facility] Systolic blood pressure 2024-01-14 12:00:00 140 mm[Hg] [facility] Diastolic blood pressure 2024-01-14 12:00:00 90 mm[Hg] [facility] Body height 2024-01-14 10:51:00 162.6 cm [facility] Body weight 2024-01-14 10:51:00 81.194 kg [facility] BMI 2024-01-14 10:51:00 30.73 kg/m2 [facility] Systolic blood pressure 2023-12-23 05:02:00 133 mm[Hg] [facility] Diastolic blood pressure 2023-12-23 05:02:00 84 mm[Hg] [facility] Heart rate 2023-12-23 05:02:00 78 /min [facility] Body temperature 2023-12-23 05:02:00 36.17 Debbie [facility] Respiratory rate 2023-12-23 05:02:00 17 /min [facility] Oxygen saturation in Arterial blood by Pulse oximetry 2023-12-23 05:02:00 91 /min [facility] Body height 2023-12-23 03:45:00 162.6 cm [facility] Body weight 2023-12-23 03:45:00 81.194 kg [facility] BMI 2023-12-23 03:45:00 30.73 kg/m2 [facility] Systolic blood pressure 2023-12-22 02:08:00 143 mm[Hg] [facility] Diastolic blood pressure 2023-12-22 02:08:00 92 mm[Hg] [facility] Heart rate 2023-12-22 02:08:00 81 /min [facility] Respiratory rate 2023-12-22 02:08:00 13 /min [facility] Oxygen saturation in Arterial blood by Pulse oximetry 2023-12-22 02:08:00 95 /min [facility] Body temperature 2023-12-22 01:33:00 36.72 Debbie [facility] Body height 2023-12-22 01:33:00 162.6 cm [facility] Body weight 2023-12-22 01:33:00 81.239 kg General acute hospital BMI 2023-12-22 01:33:00 30.74 kg/m2 General acute hospital Systolic blood pressure 2023-11-11 02:00:00 127 mm[Hg] [facility] Diastolic blood pressure 2023-11-11 02:00:00 87 mm[Hg] [facility] Heart rate 2023-11-11 02:00:00 79 /min [facility] Respiratory rate 2023-11-11 02:00:00 20 /min [facility] Oxygen saturation in Arterial blood by Pulse oximetry 2023-11-11 02:00:00 98 /min [facility] Body temperature 2023-11-11 01:31:00 36.28 Debbie [facility] Body height 2023-11-11 01:31:00 162.6 cm [facility] acute hospital Body weight 2023-11-11 01:31:00 79.379 kg General acute hospital BMI 2023-11-11 01:31:00 30.04 kg/m2 General acute hospital Systolic blood pressure 2023-10-27 06:54:00 133 mm[Hg] [facility] Diastolic blood pressure 2023-10-27 06:54:00 94 mm[Hg] [facility] Heart rate 2023-10-27 06:54:00 95 /min [facility] 2023-10-27 06:54:00 36.44 Debbie [facility] Respiratory rate 2023-10-27 06:54:00 22 /min [facility] Body height 2023-10-27 06:54:00 162.6 cm [facility] Body weight 2023-10-27 06:54:00 78.472 kg General acute hospital BMI 2023-10-27 06:54:00 29.70 kg/m2 General acute hospital Oxygen saturation in Arterial blood by Pulse oximetry 2023-10-27 06:54:00 94 /min [facility] Systolic blood pressure 2022-10-14 19:43:00 111 mm[Hg] [facility] Diastolic blood pressure 2022-10-14 19:43:00 74 mm[Hg] [facility] Heart rate 2022-10-14 19:43:00 98 /min [facility] Body temperature 2022-10-14 19:43:00 36.39 Debbie [facility] Respiratory rate 2022-10-14 19:43:00 22 /min [facility] Oxygen saturation in Arterial blood by Pulse oximetry 2022-10-14 19:43:00 94 /min [facility] Body height 2022-10-14 16:13:00 162.6 cm [facility] Body weight 2022-10-14 16:13:00 81.647 kg General acute hospital BMI 2022-10-14 16:13:00 30.90 kg/m2 [facility] Systolic blood pressure 2022-03-12 10:13:00 119 mm[Hg] [facility] Diastolic blood pressure 2022-03-12 10:13:00 75 mm[Hg] [facility] Heart rate 2022-03-12 10:13:00 105 /min [facility] Body temperature 2022-03-12 10:13:00 37.28 Debbie [facility] Respiratory rate 2022-03-12 10:13:00 19 /min [facility] Body height 2022-03-12 10:13:00 162.6 cm [facility] Body weight 2022-03-12 10:13:00 99.791 kg General acute hospital BMI 2022-03-12 10:13:00 37.76 kg/m2 [facility] Oxygen saturation in Arterial blood by Pulse oximetry 2022-03-12 10:13:00 96 /min [facility] Systolic blood pressure 2022-02-20 11:57:00 155 mm[Hg] [facility] Diastolic blood pressure 2022-02-20 11:57:00 88 mm[Hg] [facility] Heart rate 2022-02-20 11:57:00 105 /min [facility] Respiratory rate 2022-02-20 11:57:00 18 /min [facility] Oxygen saturation in Arterial blood by Pulse oximetry 2022-02-20 11:57:00 100 /min [facility] Body temperature 2022-02-20 09:25:00 37 Debbie [facility] Body height 2022-02-20 09:25:00 162.6 cm [facility] acute hospital Body weight 2022-02-20 09:25:00 96.163 kg General acute hospital BMI 2022-02-20 09:25:00 36.39 kg/m2 [facility] acute hospital Procedures Procedure Date / Time Performed Performing Clinician Source AC PANEL 20 + LACTIC ACID 2024-02-08 20:47:00 Christina Villarreal [facility] XR CHEST 1 VW 2024-02-08 19:47:00 Christina Villarreal [facility] acute hospital URINALYSIS 2024-02-08 19:36:00 [facility]real [facility] MAGNESIUM 2024-02-08 19:25:00 Christina [facility]real [facility] TROPONIN I 2024-02-08 19:25:00 Christina [facility]real [facility] COMP. METABOLIC PANEL ([id number]) 2024-02-08 19:25:00 Christina Villarreal [facility] ETHANOL 2024-02-08 19:25:00 Christina [facility]real [facility] CBC WITH DIFF 2024-02-08 19:25:00 Christina Villarreal [facility] acute hospital N-TERMINAL PRO-BNP 2024-02-08 19:25:00 Christina Villarreal [facility] EKG-12 LEAD 2024-01-14 12:00:51 Jac Navarro [facility] LIPASE 2024-01-14 11:11:00 Jac Navarro [facility] TROPONIN I 2024-01-14 11:11:00 Jac Navarro [facility] COMP. METABOLIC PANEL ([id number]) 2024-01-14 11:11:00 Jac Navarro [facility] ETHANOL 2024-01-14 11:11:00 Jac Navarro [facility] CBC WITH DIFF 2024-01-14 11:11:00 Jac Navarro [facility] N-TERMINAL PRO-BNP 2024-01-14 11:11:00 Jac Navarro [facility] COVID-19 (ID NOW RAPID TESTING) 2024-01-14 11:11:00 Jac Navarro [facility] CONSENT/REFUSAL FOR DIAGNOSIS AND TREATMENT 2024-01-14 10:44:32 Doctor Unassigned, [place] [facility] LIPASE 2023-12-23 04:17:00 Tyler Rowe Un [facility] COMP. METABOLIC PANEL ([id number]) 2023-12-23 04:17:00 Tyler Rowe [facility] CBC WITH DIFF 2023-12-23 04:17:00 Tyler Rowe U [facility] URINALYSIS 2023-12-23 04:17:00 Tyler Rowe [facility] CONSENT/REFUSAL FOR DIAGNOSIS AND TREATMENT 2023-12-23 03:40:32 Doctor Unassigned, [place] [facility] CT ABDOMEN PELVIS W CONTRAST 2023-12-22 02:31:05 Melinda Maciel [facility] LIPASE 2023-12-22 01:58:00 Melinda Maciel [facility] COMP. METABOLIC PANEL ([id number]) 2023-12-22 01:58:00 Melinda Maciel [facility] ETHANOL 2023-12-22 01:58:00 Melinda Maciel [facility] CBC WITH DIFF 2023-12-22 01:58:00 Melinda Maciel [facility] acute hospital PROTHROMBIN TIME / INR 2023-12-22 01:58:00 Wali Maciel [facility] URINALYSIS 2023-12-22 01:58:00 Melinda Maciel [facility] CONSENT/REFUSAL FOR DIAGNOSIS AND TREATMENT 2023-12-22 01:19:14 Doctor Unassigned, [place] [facility] NOTICE OF PRIVACY PRACTICES 2023-11-11 01:24:24 Doctor Unassigned, [place] [facility] CONSENT/REFUSAL FOR DIAGNOSIS AND TREATMENT 2023-11-11 01:23:54 Doctor Unassigned, [place] [facility] COVID-19 (ID NOW RAPID TESTING) 2023-10-27 07:09:00 Jac Navarro [facility] NOTICE OF PRIVACY PRACTICES 2023-10-27 06:49:48 Doctor Unassigned, [place] [facility] CONSENT/REFUSAL FOR DIAGNOSIS AND TREATMENT 2023-10-27 06:47:40 Doctor Unassigned, [place] [facility] CT ABDOMEN PELVIS W CONTRAST 2022-10-14 17:33:00 Melinda Maciel [facility] XR CHEST 1 VW 2022-10-14 17:10:37 [facility] TROPONIN I 2022-10-14 16:37:00 Melinda Maciel [facility] COMP. METABOLIC PANEL ([id number]) 2022-10-14 16:37:00 Melinda Maciel [facility] CBC WITH DIFF 2022-10-14 16:37:00 Melinda Maciel [facility] acute hospital PROTHROMBIN TIME / INR 2022-10-14 16:37:00 Wali Maciel [facility] URINALYSIS 2022-10-14 16:37:00 Melinda Maciel [facility] N-TERMINAL PRO-BNP 2022-10-14 16:37:00 Singer [facility] CONSENT/REFUSAL FOR DIAGNOSIS AND TREATMENT 2022-10-14 15:56:36 Doctor Unassigned, [place] [facility] CONSENT/REFUSAL FOR DIAGNOSIS AND TREATMENT 2022-03-12 10:03:12 Doctor Unassigned, [place] [facility] XR CHEST 1 VW 2022-02-20 09:59:00 Christy Holliday [facility] LIPASE 2022-02-20 09:30:00 Christy Holliday [facility] acute hospital TROPONIN I 2022-02-20 09:30:00 Christy Holliday [facility] acute hospital COMP. METABOLIC PANEL ([id number]) 2022-02-20 09:30:00 Christy Holliday [facility] CBC WITH DIFF 2022-02-20 09:30:00 Christy Holliday [facility] N-TERMINAL PRO-BNP 2022-02-20 09:30:00 Christy Holliday [facility] NOTICE OF PRIVACY PRACTICES 2022-02-20 09:15:02 Doctor Unassigned, [place] [facility] CONSENT/REFUSAL FOR DIAGNOSIS AND TREATMENT 2022-02-20 09:14:47 Doctor Unassigned, [place] [facility] Encounters Start Date/Time End Date/Time Encounter Type Admission Type Attending [facility] Facility Care Department Encounter ID Source 2024-03-15 08:30:00 2024-03-15 08:30:00 Outpatient WENDY BROWNLEE [id number] Maria Elena Alcantara 2024-02-17 20:58:00 2024-02-17 21:44:00 Emergency X PEG CAMP [facility] ERT [id number] [facility] 2024-02-17 20:58:00 2024-02-17 21:44:00 Emergency Peg Camp [facility] 1.2.840.114 350.1.13.10 4.2.7.2.686 [id number] [facility] 2024-02-09 13:10:00 2024-02-09 15:14:00 Emergency E URSULA QUINTANILLA [facility] [id number] [facility] 2024-02-08 20:38:00 2024-02-08 21:40:00 Emergency X DEMETRIA DAVENPORT [facility] ERT [id number] [facility] 2024-02-08 20:38:00 2024-02-08 21:40:00 Emergency Demetria Davenport [facility] 1.2.840.114 350.1.13.10 4.2.7.2.686 [id number] 084 [id number] [facility] 2024-02-08 14:08:00 2024-02-08 17:06:00 Emergency Christina Villarreal [facility] 1.2.840.114 350.1.13.10 4.2.7.2.686 [id number] [facility] 2024-01-14 04:46:00 2024-01-14 06:23:00 Emergency X JAC NAVARRO [facility] ERT [id number] [facility] 2024-01-14 04:46:00 2024-01-14 06:23:00 Emergency Jac Navarro [facility] 1.2.840.114 350.1.13.10 4.2.7.2.686 [id number] [id number] [facility] 2023-12-22 21:51:00 2023-12-22 23:13:00 Emergency X TYLER ROWE [facility] ERT [id number] [facility] 2023-12-22 21:51:00 2023-12-22 23:13:00 Emergency Tyler Rowe [facility] 1.2.840.114 350.1.13.10 4.2.7.2.686 [id number] [id number] [facility] 2023-12-21 19:36:00 2023-12-21 21:52:00 Emergency X MELINDA MACIEL [facility] ERT [id number] [facility] 2023-12-21 19:36:00 2023-12-21 21:52:00 Emergency Melinda Maciel [facility] 1.2.840.114 350.1.13.10 4.2.7.2.686 [id number] [facility] 2023-11-10 19:29:00 2023-11-10 20:14:00 Emergency X CHRISTY HOLLIDAY [facility] ERT [id number] [facility] 2023-11-10 19:29:00 2023-11-10 20:14:00 Emergency Christy Holliday [facility] 1.2.840.114 350.1.13.10 4.2.7.2.686 [id number] 084 [id number] [facility] 2023-10-27 00:49:00 2023-10-27 01:41:00 Emergency X TERESSA JAC [facility] ERT [id number] [facility] 2023-10-27 00:49:00 2023-10-27 01:41:00 Emergency Jac Navarro [facility] 1.2.840.114 350.1.13.10 4.2.7.2.686 [id number] [id number] [facility] 2023-07-15 00:00:00 2023-07-15 00:00:00 Outpatient DARIEN LOBO [id number] Maria Elena [facility] 2023-06-16 11:30:00 2023-06-16 11:30:00 Outpatient DARIEN LOBO [id number] Maria Elena [facility] 2023-05-18 00:00:00 2023-05-18 00:00:00 Outpatient MARIA ELENA CHAN [id number] Maria Elena [facility] 2022-10-14 10:07:00 2022-10-14 14:39:00 Emergency Christen MACIELMELINDA [facility] ERT [id number] [facility] 2022-10-14 10:07:00 2022-10-14 14:39:00 Emergency Melinda Maciel [facility] 1.2.840.114 350.1.13.10 4.2.7.2.686 [id number] [id number] [facility] 2022-03-12 05:15:00 2022-03-12 06:41:00 Emergency CHRISTY OZUNA [facility] ERT [id number] [facility] 2022-03-12 05:15:00 2022-03-12 06:41:00 Emergency Christy Holliday [facility] 1.2.840.114 350.1.13.10 4.2.7.2.686 [id number] [facility] 2022-02-20 04:17:00 2022-02-20 07:16:00 Emergency CHRISTY OZUNA [facility] ERT [id number] [facility] 2022-02-20 04:17:00 2022-02-20 07:16:00 Emergency Christy Holliday [facility] 1.2.840.114 350.1.13.10 4.2.7.2.686 [id number] [facility] 2021-02-03 11:10:00 2021-02-03 11:10:00 Outpatient DENISE CAMPO [facility] [id number] [facility] 2021-01-13 11:20:00 2021-01-13 11:20:00 Outpatient [facility] [id number] [facility] 2020-11-10 08:20:00 2020-11-10 08:20:00 Outpatient KARLEY ESTRADA [facility] [id number] [facility] Results Test Description Test Time Test Comments Results Result Co mments Source [facility] + Lactic [id number] 20:52:47* Test Item Value Reference Range Interpretation Comme nts PH (test code = 2) 7.39 7.35-7.45 PCO2 (test code = 7425209425) 42 35-45 PO2 (test code = 2491771396) 76 80-100 L HCO3 (test code = 1862831311) 25 22-26 BE (test code = 2353052707) -0.1 -3.0-3.0 THB (test code = 3139477177) 14.3 g/dL 13.5-18.0 %O2HB (test code = 0103379068) 85.8 % 94.0-99.0 L %COHB ART (test code = 7810572972) 9.0 % 0.0-1.5 H %METHB ART (test code = 9241602389) 0.3 % 0.4-1.5 L VOL%O2 ART (test code = 9101357732) 17.3 % 15.0-23.0 NA (test code = 1309039743) 140 mmol/L 135-145 K+ (test code = 4049703505) 4.1 mmol/L 3.5-5.0 AC CA IONZ (test code = 7897221862) 4.50 mg/dL 4.50-5.30 GLUCOSE (test code = 6585533774) 105 mg/dL 70-110 LACTIC ACID (test code = 0060777002) 2.60 mmol/L 0.50-2.20 H Lab Interpretation (test cod e = 08199-3) [facility]normal [facility] [id number] 20:34:14* Test Item Value Reference Range Interpretation Comme nts TROPONIN I (test code = 7574475166) 0.008 ng/mL <=0.034 LOUISE (test code = [...] of biotin. Lab Interpretation (test code = 38245-2) Normal [facility] Fqm-[id number] 20:31:35* Test Item Value Reference Range Interpretation Comme nts NT-proBNP (test code = 35851-4) 188 pg/mL <=125 LOUISE (test code = LOUISE) Result Indeterminate-Consid er causes of NT-proBNP elevation other than Heart failure such as acute coronary syndrome, pulmonary embolism, pulmonary hypertension, sepsis, stroke, and renal dysfunction. Lab Interpretation (test code = 26797-6) Abnormal [facility] Met[facility] Panel (28226)2024-02-08 20:21:10* Test Item Value Reference Range Interpretation Comme nts NA (test code = 2499064827) 135 mmol/L 135-145 K (test code = 7451521759) 4.5 mmol/L 3.5-5.0 CL (test code = 9612734479) 100 mmol/L 98-108 CO2 TOTAL (test code = 5970121918) 22 mmol/L 23-31 L AGAP (test code = 0269554681) 13 2-16 BUN (test code = 5399873948) 8 mg/dL 7-23 GLUCOSE (test code = 4195205369) 97 mg/dL 70-110 CREATININE (test code = 2160-0) 0.65 mg/dL 0.60-1.25 TOTAL BILI (test code = 4712147551) 0.4 mg/dL 0.1-1.1 CALCIUM (test code = 1857496738) 9.4 mg/dL 8.6-10.6 T PROTEIN (test code = 6100497961) 8.2 g/dL 6.3-8.2 ALBUMIN (test code = 2592345666) 4.7 g/dL 3.5-5.0 ALK PHOS (test code = 6487223748) 76 U/L 34-122 ALTv (test code = 1742-6) 33 U/L 5-50 AST(SGOT) (test code = 0931184855) 54 U/L 13-40 H eGFR (test code = 95012-7) 111.3 mL/min/1.73m2 CKD-EPI eGFR (2020). Assuming creatinine has been stable day-to-day for at least three months, the eGFR indicates Category G1 (>= 90 mL/min/1.73 m2) Lab Interpretation (test code = 94939-1) Abnormal [facility] Center[facility]esium2024-04-01 20:21:10* Test Item Value Reference Range Interpretation Comme nts MAGNESIUM (test code = 8721916405) 2.1 mg/dL 1.7-2.4 Lab Interpretation (test cod e = 47675-2) Normal [facility] CHEST 1 [id number] 20:07:21EXAM: XR CHEST 1 VW COMPARISON: 01/14/2024 HISTORY: sob FINDINGS: Lungs: Slightly hyperexpanded lungswith subtle progression of interstitialprominence. Trace pleural effusions could be present. Heart/Mediastinum: Stable cardiomegaly. Bones and soft tissues: No osseous abnormality is visualized.[facility] Cbc with [id number] 20:04:26* Test Item Value Reference Range Interpretation [...] 33.8 g/dL 31.2-35.0 RDW-SD (test code = 97603-9) 50.5 fL 38.5-51.6 RDW-CV (test code = 788-0) 14.3 % 12.1-15.4 PLT (test code = 777-3) 206 150-328 MPV (test code = 02325-4) 9.1 fL 9.8-13.0 L NRBC/100 WBC (test code = 6091528511) 0.0 0.0-10.0 NRBC x10^3 (test code = 2621322324) See_Comment [Automated messa ge] The system which generated this result transmitted reference range: 10*3/?L. The reference range was not used to interpret this result as normal/abnormal. GRAN MAT (NEUT) % (test code = 770-8) 81.0 % IMM GRAN % (test code = 7492669639) 1.20 % LYMPH % (test code = 736-9) 10.9 % MONO % (test code = 5905-5) 6.8 % EOS % (test code = 713-8) 0.0 % BASO % (test code = 706-2) 0.1 % GRAN MAT x10^3(ANC) (test code = 0679855034) 9.31 10*3/uL 1.99-6.95 H IMM GRAN x10^3 (test code = 2298659686) 0.14 10*3/uL 0.00-0.06 H LYMPH x10^3 (test code = 731-0) 1.25 10*3/uL 1.09-3.23 MONO x10^3 (test code = 742-7) 0.78 10*3/uL 0.36-1.02 EOS x10^3 (test code = 711-2) 0.06-0.53 L BASO x10^3 (test code = 704-7) 0.01-0.09 Lab Interpretation (test code = 65615-4) Abnormal [facility]. METABOLIC PANEL (58541)2023-12-23 04:53:26* Test Item Value Reference Range Interpretation Comme nts NA (test code = 5298361395) 135 mmol/L 135-145 K (test code = 0459447422) 3.2 mmol/L 3.5-5.0 L CL (test code = 0580371245) 104 mmol/L 98-108 CO2 TOTAL (test code = 2413810540) 23 mmol/L 23-31 AGAP (test code = 5796429059) 8 2-16 BUN (test code = 0369820837) 11 mg/dL 7-23 GLUCOSE (test code = 3177874256) 82 mg/dL 70-110 CREATININE (test code = 2160-0) 0.64 mg/dL 0.60-1.25 TOTAL BILI (test code = 6308492078) 0.5 mg/dL 0.1-1.1 CALCIUM (test code = 6574581319) 8.8 mg/dL 8.6-10.6 T PROTEIN (test code = 8073423194) 6.7 g/dL 6.3-8.2 ALBUMIN (test code = 8017214986) 4.1 g/dL 3.5-5.0 ALK PHOS (test code = 1922179847) 46 U/L 34-122 ALTv (test code = 1742-6) 21 U/L 5-50 AST(SGOT) (test code = 9743938823) 43 U/L 13-40 H eGFR (test code = 25072-7) 111.8 mL/min/1.73m2 CKD-EPI eGFR (2020). Assuming creatinine has been stable day-to-day for at least three months, the eGFR indicates Category G1 (>= 90 mL/min/1.73 m2) Lab Interpretation (test code = 06294-7) Abnormal [facility]2024-[facility]-14 04:53:26* Test Item Value Reference Range Interpretation Comme nts LIPASE (test code = 2053488610) 105 U/L 0-220 Lab Interpretation (test cod e = 02950-0) Normal [facility] CenterCB WITH [id number] 04:34:24* Test Item Value Reference Range Interpretation [...] 33.0 g/dL 31.2-35.0 RDW-SD (test code = 23294-3) 50.9 fL 38.5-51.6 RDW-CV (test code = 788-0) 13.7 % 12.1-15.4 PLT (test code = 777-3) 232 150-328 MPV (test code = 63319-0) 8.7 fL 9.8-13.0 L NRBC/100 WBC (test code = 5669910239) 0.0 0.0-10.0 NRBC x10^3 (test code = 4638285631) See_Comment [Automated [employer] ge] The system which generated this result transmitted reference range: 10*3/?L. The reference range was not used to interpret this result as normal/abnormal. GRAN MAT (NEUT) % (test code = 770-8) 58.8 % IMM GRAN % (test code = 9368709659) 0.90 % LYMPH % (test code = 736-9) 27.8 % MONO % (test code = 5905-5) 10.5 % EOS % (test code = 713-8) 1.3 % BASO % (test code = 706-2) 0.7 % GRAN MAT x10^3(ANC) (test code = 9671833321) 5.68 10*3/uL 1.99-6.95 IMM GRAN x10^3 (test code = 4647309653) 0.09 10*3/uL 0.00-0.06 H LYMPH x10^3 (test code = 731-0) 2.69 10*3/uL 1.09-3.23 MONO x10^3 (test code = 742-7) 1.02 10*3/uL 0.36-1.02 EOS x10^3 (test code = 711-2) 0.13 10*3/uL 0.06-0.53 BASO x10^3 (test code = 704-7) 0.07 10*3/uL 0.01-0.09 Lab Interpretation (test code = 34878-0) Abnormal [facility] P[facility] W [id number] 03:32:43Exam: CT Abdomen and Pelvis With Contrast, [...] osseous abnormality.Soft tissues: Small fat-containing inguinal hernias.[facility] CenterEthanol2024-02-13 02:32:24* Test Item Value Reference Range Interpretation Comme nts ALCOHOL (test code = 5586398556) 117 mg/dL LOUISE (test code = LOUISE) <10 Xdlbvyxe24-290 Toxic>100 Depression of DIRECTOR OF STUDENT AFFAIRS>400 Fatalities Reported [facility]. Metabolic Panel (59084)2023-12-22 02:31:43* Test Item Value Reference Range Interpretation Comme nts NA (test code = 9109142157) 133 mmol/L 135-145 L K (test code = 7583233758) 3.3 mmol/L 3.5-5.0 L CL (test code = 9213970241) 102 mmol/L 98-108 CO2 TOTAL (test code = 6010702048) 25 mmol/L 23-31 AGAP (test code = 3298096641) 6 2-16 BUN (test code = 4988241685) 11 mg/dL 7-23 GLUCOSE (test code = 3575976862) 75 mg/dL 70-110 CREATININE (test code = 4648327179) 0.51 mg/dL 0.60-1.25 L TOTAL BILI (test code = 9563386363) 0.5 mg/dL 0.1-1.1 CALCIUM (test code = 4055530223) 8.9 mg/dL 8.6-10.6 T PROTEIN (test code = 2799755938) 7.2 g/dL 6.3-8.2 ALBUMIN (test code = 5483297895) 4.5 g/dL 3.5-5.0 ALK PHOS (test code = 1037671567) 46 U/L 34-122 ALTv (test code = 1742-6) 15 U/L 5-50 AST(SGOT) (test code = 2706639810) 24 U/L 13-40 eGFR (test code = 06362-1) 119.7 mL/min/1.73m2 CKD-EPI eGFR (2020). Assuming creatinine has been stable day-to-day for at least three months, the eGFR indicates Category G1 (>= 90 mL/min/1.73 m2) Lab Interpretation (test code = 22757-8) [facility]31:43* Test Item Value Reference Range Interpretation Comme nts LIPASE (test code = 0849843022) 121 U/L 0-220 Lab Interpretation (test cod e = 71292-2) [facility] / [id number] 02:21:02* Test Item Value Reference Range Interpretation Comme nts PROTIME PATIENT (test code = 5964-2) 10.5 10.1-12.6 INR (test code = 6301-6) 0.9 Normal INR <1.1; Warfarin Therapeutic range 2.0 to 3.0 or 2.5 to 3.5, depending upon the indications. Lab Interpretation (test code = 90427-7) Normal [facility] CenterCbc with [id number] 02:14:04* Test Item Value Reference Range Interpretation [...] 34.0 g/dL 31.2-35.0 RDW-SD (test code = 28375-3) 49.1 fL 38.5-51.6 RDW-CV (test code = 788-0) 13.5 % 12.1-15.4 PLT (test code = 777-3) 260 150-328 MPV (test code = 34493-0) 8.7 fL 9.8-13.0 L NRBC/100 WBC (test code = 4173728172) 0.0 0.0-10.0 NRBC x10^3 (test code = 5846393102) See_Comment [Automated messa ge] The system which generated this result transmitted reference range: 10*3/?L. The reference range was not used to interpret this result as normal/abnormal. GRAN MAT (NEUT) % (test code = 770-8) 64.3 % IMM GRAN % (test code = 7878887695) 0.90 % LYMPH % (test code = 736-9) 24.2 % MONO % (test code = 5905-5) 9.1 % EOS % (test code = 713-8) 0.7 % BASO % (test code = 706-2) 0.8 % GRAN MAT x10^3(ANC) (test code = 9380052995) 8.73 10*3/uL 1.99-6.95 H IMM GRAN x10^3 (test code = 4398662641) 0.12 10*3/uL 0.00-0.06 H LYMPH x10^3 (test code = 731-0) 3.28 10*3/uL 1.09-3.23 H MONO x10^3 (test code = 742-7) 1.23 10*3/uL 0.36-1.02 H EOS x10^3 (test code = 711-2) 0.10 10*3/uL 0.06-0.53 BASO x10^3 (test code = 704-7) 0.11 10*3/uL 0.01-0.09 H Lab Interpretation (test code = 65312-4) [facility]03 10:16:22* Test Item Value Reference Range Interpretation Comments TROPONIN I (test code = 3571952899) 0.007 ng/mL See_Comment [Automated message] The system [...] of biotin. Lab Interpretation (test code = 13246-0) Normal [facility] XOK-VYM9756-96-14 10:13:01* Test Item Value Reference Range Interpretation Comme nts NT-proBNP (test code = 5943061274) 52 pg/mL See_Comment [Automated message] The system which generated this result transmitted reference range: <=125. The reference range was not used to interpret this result as normal/abnormal. LOUISE (test code = LOUISE) Biotin has been reported to cause a negative bias, interpret results relative to patient's use of biotin. Lab Interpretation (test code = 33709-1) [facility] CenterCOMP[facility]OL[facility] PANEL (42045)2022-02-20 10:04:02* Test Item Value Reference Range Interpretation Comme nts NA (test code = 4965038051) 137 mmol/L 135-145 K (test code = 5731531449) 3.6 mmol/L 3.5-5.0 CL (test code = 4474732549) 99 mmol/L 98-108 CO2 TOTAL (test code = 4210147748) 25 mmol/L 23-31 AGAP (test code = 4565454611) 2-16 BUN (test code = 9324580205) 6 mg/dL 7-23 L GLUCOSE (test code = 1873384593) 88 mg/dL 70-110 CREATININE (test code = 4392155649) 0.55 mg/dL 0.60-1.25 L TOTAL BILI (test code = 1154291837) 0.8 mg/dL 0.1-1.1 CALCIUM (test code = 5457747357) 8.9 mg/dL 8.6-10.6 T PROTEIN (test code = 4647818680) 7.5 g/dL 6.3-8.2 ALBUMIN (test code = 9882369235) 4.8 g/dL 3.5-5.0 ALK PHOS (test code = 8866493729) 113 U/L 34-122 ALTv (test code = 1742-6) 84 U/L 5-50 H AST(SGOT) (test code = 7439795901) 107 U/L 13-40 H eGFR (test code = 4066233620) mL/min/1.73m2 LOUISE (test code = LOUISE) Association [...] imaging tests). Lab Interpretation (test code = 99473-3) [facility]normal [facility] CenterLIPASE, BMMBY8646-22-79 10:03:21* Test Item Value Reference Range Interpretation Comme nts LIPASE (test code = 3041559269) 193 U/L 0-220 Lab Interpretation (test cod e = 09346-5) Normal [facility] CenterCB WITH UIPS6626-30-31 09:39:17* Test Item Value Reference Range Interpretation Comme nts WBC (test code = 6690-2) See_Comment [Automated [employer] ge] The system which generated this result [...] g/dL 31.2-35.0 H RDW-SD (test code = 60959-1) 44.4 fL 38.5-51.6 RDW-CV (test code = 788-0) 11.9 % 12.1-15.4 L PLT (test code = 777-3) See_Comment [Automated messa ge] The system which generated this result transmitted reference range: 150 - 328 10*3/?L. The reference range was not used to interpret this result as normal/abnormal. MPV (test code = 95464-2) 9.2 fL 9.8-13.0 L NRBC/100 WBC (test code = 2064119421) See_Comment [Automated [employer] ssage] The system which generated this result transmitted reference range: 0.0 - 10.0 /100 WBCs. The reference range was not used to interpret this result as normal/abnormal. NRBC x10^3 (test code = 9331399575) <0.01 See_Comment [Automated messa ge] The system which generated this result transmitted reference range: 10*3/?L. The reference range was not used to interpret this result as normal/abnormal. GRAN MAT (NEUT) % (test code = 770-8) 69.9 % IMM GRAN % (test code = 3989387538) 1.50 % LYMPH % (test code = 736-9) 18.9 % MONO % (test code = 5905-5) 7.0 % EOS % (test code = 713-8) 1.9 % BASO % (test code = 706-2) 0.8 % GRAN MAT x10^3(ANC) (test code = 3675889933) 7.15 10*3/uL 1.99-6.95 H IMM GRAN x10^3 (test code = 7028899365) 0.15 10*3/uL 0.00-0.06 H LYMPH x10^3 (test code = 731-0) 1.93 10*3/uL 1.09-3.23 MONO x10^3 (test code = 742-7) 0.72 10*3/uL 0.36-1.02 EOS x10^3 (test code = 711-2) 0.19 10*3/uL 0.06-0.53 BASO x10^3 (test code = 704-7) 0.08 10*3/uL 0.01-0.09 Lab Interpretation (test code = 79290-2) Abnormal [facility] Notes Date/Time Note Provider Source 2024-02-17 21:43:52 qvR6WPTFyClASxxouPUaDwslcSVeLMk8zZx Bko8miJjcd7OBpJFGWjB0nuVffVmH4252-4 1:43:52 No answer in lobby. 92850-3Hwxbwhewi department DolvOV8522-50-37U30:44:07[facility] department NoteTXT1.2.840.885482.1.13.104.2.7. 2.346124|[id number] for patient tbjp36480-1WrbkOLMLAZZHFAFTjwhhmemb C-CDA narrative ydjg102602132Xopcaz J Yue RN[id number] 2JYFYINHLIVHOVCEIESZKRG0060-95-91B0 1:44:071.2.840.233494.1.72.3.15|1.2 .840.229520.1.13.104.2.7.2.727879_2 [id number] Angy Rossi Yue RN [facility] 2024-02-17 21:42:10 RnFfZqqVkXu1bTX6F9A9HkOuts8c6QqPFau A4oYB0vs0NsK5a85jffeOXs8ipUWS8400-9 1:42:10 Pt's blood pressure cuff and pulse ox found lying on chair. Called for patient in lobby 2 times, no answer. No one in lobby. 40783-6Kymzdkksy department KjnrHJ2776-29-56L78:44:10[facility] department NoteTXT1.2.840.076794.1.13.104.2.7. 2.898361|[id number] for patient zyzu92487-9NxwoPTYVUJUTVLZSpsailpcg C-CDA narrative osii230714169Oewtz A. Campbell RN[id number] 4PMXEDOTRLSTEVIQZGFLUBU1351-99-88V4 1:44:101.2.840.228564.1.72.3.15|1.2 .840.889256.1.13.104.2.7.2.727879_2 [id number] Sierra Samaniego RN [facility] 2024-02-17 21:41:09 N7FZQMQP+zQyd6Zq4ugsfLhwfSmTVNkp+IW gAXo1g13VKwl7z3SATMrZnT3UVvd04283-2 02-16T21:41:09 Pt not in lobby or in room. No answer in lobby. 26717-8Hxseqajea department NywwXA8764-77-28C91:41:40[facility] NoteTXT1.2.840.227236.1.13.104.2.7. 2.480927|5653729086CDOzvcrjwpz for patient jtju02241-4SoprZOUDJVAXIKFFxupmjrtf C-CDA narrative text[address] GuwqH[id number] 1HNQXSPPQQMBMMXWJZCPYBA9670-06-50J2 1:41:401.2.840.906909.1.72.3.15|1.2 .840.831950.1.13.104.2.7.2.727879_2 [id number] [facility] 2024-02-17 21:14:29 HSy7Um9eOSIP6V41PA0Nngy6UuGBOK2oRqe Q+PZSrI6UFlEcS2obY5tOqa/ZBRor7946-8 02-16T21:14:29 Pt not in FT- and no answer in lobby. 68839-7Qzbirwwqz department PgtyXJ1288-18-04L03:15:32[facility] department NoteTXT1.2.840.680200.1.13.104.2.7. 2.005585|[id number] for patient eldh23148-0QhvdKNKNVFXWAEJLrukazxsf C-CDA narrative textUT[address]TXTX775557755 2GFALSXNVVAWLYYZGNMGRDQ7573-27-33K5 1:15:321.2.840.805030.1.72.3.15|1.2 .840.573406.1.13.104.2.7.2.727879_2 [id number] [facility] 2024-02-17 20:48:50 5jD44eZhAFyYj4RPYNwpjDcdK4jqNMX7W5M DSv2UtcrOi3STOV/JJ1/se0GHZZ2w9364-8 02-16T20:48:50 Pt arrives ambulatory to ED c/o SOB, right upper abdominal pain, and left leg and hip pain. Pt states that he has been on prednisone for about 5 yrs which had given him osteoporosis which is causing his leg pain. Reports hx of COPD, o2 is generally @ 91 he says. 99346-0Fuayltjoi department Triage gdmvTF3570-15-07R40:53:54[facility] Triage noteTXT1.2.840.945082.1.13.104.2.7. 2.470335|9419325262UBDxqmywkfq for patient ztcn95162-6Vivqnwydo department NoteLNNARRATIVEFormatted C-CDA narrative qdon023675421Leqjli L Williams RNUT[id number] 0MBQSWSXWYDYCMPCGRMSOOR5620-86-10L8 0:53:541.2.840.209170.1.72.3.15|1.2 .840.051592.1.13.104.2.7.2.727879_2 [id number] Leah Lizama RN [facility] 2024-02-08 21:37:56 ZGovAcXZ99qti2uazrSusxL28Q+ZlkfFHgJ le/QLy1FO1WBDX8+V70V+vj6T3+gn8382-9 02-07T21:37:56 Pt left AMA 98876-0Hgepkjxss department GhdqMK6262-09-75Y95:38:11[facility] department NoteTXT1.2.840.169413.1.13.104.2.7. 2.967546|3683344449DNQvpdouxxo for patient jjts97294-6VylpADMBUDIZKKSIuqlysffc C-CDA narrative dvzp757838136JdafqKylie Foster RN[address] UvwmIetoqtpazFggqqnosrSMOZ872588011 9IQPORYCVLKZKCIAJWEPMUJ8952-74-31C4 1:38:111.2.840.104927.1.72.3.15|1.2 .840.011288.1.13.104.2.7.2.727879_2 [id number] Kylie Foster RN [facility] 2024-02-08 21:32:00 J732cKkrNJ/HaXSbnZXJabbzrdEFKJ2ZzrY 9g/V67LhMwPojKG3LgZENTVZ0r4gD3929-8 02-07T21:32:00 Patient leaving AMA after self removing [...] ambulatory with steady gait, [place] NAD 74597-9Ppcadqpbx department QbwkFD2661-73-26A77:40:32[facility] department NoteTXT1.2.840.785149.1.13.104.2.7. 2.084645|5283987946DDDdbyywmna for patient gptw74430-5VfdlEGTLVZOHEWHOwnkmiskd C-CDA narrative [id number] 6MNXZMVEILHADRHYVNLDPQV6929-15-98S0 1:40:321.2.840.659003.1.72.3.15|1.2 .840.513879.1.13.104.2.7.2.727879_2 [id number] [facility] 2024-02-08 20:54:38 mE96LoS+tI0Uo7cJ5lzIPyZu/bCPCdxwEFA HgiDjqaMNlxhRVNMIbp7Rj1Ya7Kvq1951-7 02-07T20:54:38 Pt states he uses O2 at home, portable O2 is broken 58099-8Ivhmlbuuo department EbpnAK3545-88-79P00:55:13[facility] department NoteTXT1.2.840.089246.1.13.104.2.7. 2.813207|8599624210UIXtapbbwzz for patient vvcc96032-1MamkLCIAPMWUJVYJbrtfhvke C-CDA narrative [id number] 5BBENVKRKPSGJEQCQNSZPCR9677-43-82T9 0:55:131.2.840.937357.1.72.3.15|1.2 .840.062130.1.13.104.2.7.2.727879_2 [id number] [facility] 2024-02-08 20:51:11 el/w2YTNZ+tNeuDtwIzxdMky21JM/x7DhYW 05psOm7yTq0apfmB1pbFtCu+31hIj3876-2 02-07T20:51:11 Pt ambulates with cane 18762-8Zvvxsqnip department EcazFH7536-81-57I21:51:26[facility] department NoteTXT1.2.840.249474.1.13.104.2.7. 2.713263|[id number] for patient lqde12427-2AlmfHVCFXZFLZKWNqazhgqpd C-CDA narrative text[address] GtpuUzqyjnhqfYrilweyvhYCLD377000424 7QUIKBUUULFJZJIIODIGOEW6347-90-94U0 0:51:261.2.840.806389.1.72.3.15|1.2 .840.966669.1.13.104.2.7.2.727879_2 [id number] [facility] 2024-02-08 20:43:13 3KhmboozLQwKvUOIpR748vS/9GbsgI+2tFK wSCRRa/jxCVb/9ffxnwQNTmp/tNOc5242-8 02-07T20:43:13 CC: Pt arrives SOB after leaving [place] earlier in the shift. He reports he [...] 3 BC powders and drank 3 beers." 39260-3Wibmwiciv department Triage yrcpMO4849-86-40C05:48:36[facility] Triage noteTXT1.2.840.092572.1.13.104.2.7. 2.584644|5539821569JJLvxtdkdlg for patient bjer22276-3Fbghnsson department NoteLNNARRATIVEFormatted C-CDA narrative ksjz183975085Dzmtnp R Shehadeh RN[address] BtioIaltlzwveVeccochrpVBNO948890158 0VDRQXJQUHRDBOYIBEBNIWU8259-19-51B2 0:48:361.2.840.342053.1.72.3.15|1.2 .840.087441.1.13.104.2.7.2.727879_2 [id number] Leah King RN [facility] 2024-02-08 17:04:05 u5Ndqpv+jAu8WlXJNVaAZFKqaMjNU6og2S+ vXQOnp/Gafi/Ox4WgBz4JPCo4QsIf8581-3 7:04:05 Patient walked to the nurses station and stated "I have another emergency and I have to leave right now. I need this IV taken out immediately."Encouraged patient to stay and he stated "I have to leave immediately and I don't want to take this out myself" IV d/c at this time and patient ambulated out of the department with a steady gait. 80871-2Jdeoqxlsx department AxquKD1515-69-52J23:05:22[facility] NoteTXT1.2.840.805891.1.13.104.2.7. 2.609018|9635657320WJNvmnbgmzc for patient ceuv77571-5YvqfNONLFSFGFVNOnakxoqpw C-CDA narrative mniy653062825Cibf M Hayes RN[address] XqsoMqjyrjcqkMunrafzsvHSOX889505756 4VDKPZDRZICOOZVFKQOYWAF8000-68-22A2 7:05:221.2.840.920420.1.72.3.15|1.2 .840.691383.1.13.104.2.7.2.727879_2 [id number] Allison Zhang RN [facility] 2024-02-08 14:23:02 ddczwyZwvbCftEhW9z9bwGr6oI6N/Z3pRfm uswrhKjDYJwQ/lTaNhiEi4UdIpsMm5840-1 02-07T14:23:02 Pt ambulates with a cane 94079-2Rrlraukqe department BppaSL7169-61-11V86:23:12Emergency department NoteTXT1.2.840.781507.1.13.104.2.7. 2.908226|0433498085UWUymwyurjx for patient qyfj95212-0AxxfJGKXHBBRSHBIbskzydgd C-CDA narrative ofvm118096682Gzjvt M Martinez RN[address] UrcqVlxzltqwnAnpwpppytPRKR891703618 2RZEKMPNFJJTOJOMPRNJQDK4450-17-84H5 4:23:121.2.840.614344.1.72.3.15|1.2 .840.220127.1.13.104.2.7.2.727879_2 [id number] Kylie Foster RN [facility] 2024-02-08 14:13:15 N4w979/54FiCS7Lv1oakqowXoxFAeRnUzxu JSuqstVM0JC8Q9RjITp7JGwjqHRRa7992-4 02-07T14:13:15 Pt has taken 8-packets of BC [...] only thing that helps." Face is flushed. 47117-0Cjtirwsac department Triage quqhYC9221-76-30S40:17:26[facility] Triage noteTXT1.2.840.483258.1.13.104.2.7. 2.676825|8395646716KKAbqtkveyh for patient uvzc73380-3Dyyfyspxu department NoteLNNARRATIVEFormatted C-CDA narrative ebpe013693977Rxbjqkz Fief RNUT[address] JjnhEysxpdyjjPdevejlqxGTDP391092671 4GQSGKGXOSQDTCCDHRZZIQR5284-48-26I0 4:17:261.2.840.697399.1.72.3.15|1.2 .840.022898.1.13.104.2.7.2.727879_2 [id number] Hali Aviles RN [facility] 2024-01-14 06:16:25 9Qjc7AwbHe4Jz8b1szIJCpl9Ix8Q/FhSiR0 RK1fNO6jnxneEdj+nOyN0uNfvonOu0290-2 01-13T06:16:25 Pt given printed and verbal discharge instructions [...] w/d, pt leaving in no apparent distress, 83829-1Qhmnsmndq department FigfZJ7923-33-54V58:17:20[facility] NoteTXT1.2.840.858160.1.13.104.2.7. 2.620810|6469775607QHTpjejpwgs for patient gvyj21297-5ElfwTZBZHJSOTFWAvxczgoaw C-CDA narrative text[address] EhuwKwqavhcjoGrgfzvhysQGCO410627661 3RJGHFVLXBBBSJUKXHMLKBY4428-34-41H9 6:17:201.2.840.893279.1.72.3.15|1.2 .840.751394.1.13.104.2.7.2.727879_2 [id number] [facility] 2024-01-14 04:49:43 j5GTzspVCYeCx5a7jqK2JSLkmb6Jb+E0JFo 5q2QX9dVs8zhsYFdvPyjMe5tcKeOv6280-5 3-07T04:49:43 CC: "My COPD is acting up real [...] ext without difficulty, amb with steady gait 99896-4Rehtxxjhs department Triage sdkaYJ9702-11-18J50:55:49[facility] Triage noteTXT1.2.840.181079.1.13.104.2.7. 2.712810|[id number] for patient pdla64286-2Octfdlcyv department NoteLNNARRATIVEFormatted C-CDA narrative grzs684619877Bijwsz R Shehadeh RN[address] PtseYmuzqpevfJeerbyaxyDIYM485289053 8AVOUVDMPBAUIIOKUHHZRND1885-94-20H5 4:55:491.2.840.610590.1.72.3.15|1.2 .840.949711.1.13.104.2.7.2.727879_2 [id number] Leah King RN [facility] 2024-01-14 04:43:00 Loy15rqbL1fsLBlBplYoo4t6UeLhwz4S5pu djsmrB+7dfx6HtaiaofTo64mLk3l/04:43:00Associated Order(s): EKG-12 Lead ROUTINE ONCEPre-Procedure Diagnose(s): Chest pain, unspecified typePost-Procedure Diagnose(s): Chest pain, unspecified type [facility] Emergency Department NotePatient Name: Randy BrionesDate of : 1970 53 year old maleTreatment Room: AR1/QC2Jyugskk Record Number: [id number] Care Physician: Adrianna King Escorted by: Family [5]Mode of Arrival: Personal means [1]EMS Treatment Prior to ED Arrival: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 METABOLIC PANEL (28398) - AbnormalResult Value Ref RangeNA 138 135 [...] 49 (*) 13 - 40 U/LeGFR 93.3 mL/min/1.76s8BOD WITH DIFF - AbnormalWBC 11.59 (*) 4.20 [...] 220 U/LCOVID-19 (ID NOW RAPID TESTING) - MavtyoRHKK-ClK-7 Rapid ID NOW Not Detected Not DetectedETHANOLALCOHOL 62 mg/dLEKG:If EKG completed, see Procedure Note.Orders and Treatments:Orders Placed This EncounterProcedures XR CHEST 1 VW TROPONIN I COMP. METABOLIC PANEL (49741) LIPASE, SERUM CBC WITH DIFF N-Terminal Pro-Bnp Ethanol COVID-19 (ID NOW TESTING) Lab Only COVID Interpretation O2 Per ProtocolOrders Placed This EncounterMedications morpHINE (4 mg/mL) injection 4 mg ondansetron (ZOFRAN (PF)) injection 4 mg ipratropium-albuteroL (DUONEB) 0.5 mg-3 mg(2.5 mg base)/3 mL nebulizer solution 3 mLFirst Provider Eval:ED EventsDate/Time Event User Jkktvwcr20/07/24 0510 Medical Screening Begins JAC NAVARRO MD --01/14/24 0510 First Provider Evaluation JAC NAVARRO MD --ED COURSEDiagnosis/Impression as of 01/14/24 0605Chest pain, unspecified typeBronchitisProcedures:EKG-12 Lead ROUTINE ONCEDate/Time: 01/14/2024 5:24 AMPerformed by: Jac Navarro MDAuthorized by: Jac Navarro MDECG interpreted by ED Physician in the absence of a storekeeper engineering: yesPrevious ECG:Previous ECG: Compared to currentSimilarity: No [...] on fileFollow-up:Electronically signed by:Jac Navarro MD01/14/24 0600 20077-1Ciarbgynx Emergency department GgvbUY3314-91-29N83:00:50Physician Emergency department NoteTXT1.2.840.113698.1.13.104.2.7. 2.091884|[id number] for patient yvsa23588-2Mmgjiqltm department NoteLNNARRATIVEFormatted C-CDA narrative text[address] NjlfP[id number] 9OCDCLCVFEQRWLMCAGAXNNT4031-11-60S6 6:00:501.2.840.705806.1.72.3.15|1.2 .840.749107.1.13.104.2.7.2.727879_2 [id number] [facility] 2023-12-22 23:12:16 OfR1+ehExuNchP2OYyZK0ajUTjy1GoKLjR5 gJNdBftjtZTUfKyPr84x2WyVjs3iZ0421-0 12-22T23:12:16 Pt given printed and verbal discharge [...] with steady gait, in no apparent distress, 65239-3Mcwiykpbc department LfyvHQ3847-95-75E58:13:50[facility] NoteTXT1.2.840.901121.1.13.104.2.7. 2.138859|[id number] for patient pbqj66413-6YczmTHZAMZFLNEYMwpkrhcst C-CDA narrative nccv020483566Yefkf E Gómez MACHUCA[address]vestonGalvestonTXTX[address] 6HTLLZQBOXNCXCULAQUOUOT8475-44-30W6 3:13:501.2.840.609828.1.72.3.15|1.2 .840.753240.1.13.104.2.7.2.727879_2 [id number] Mary Machado Gómez RN [facility] 2023-12-22 21:41:55 kACyK8QtyY03BqFheyzbhYJzIVNWVKlnIDx qZMFSHsdsskEibSccz0i+8+PVY5P29169-8 12-22T21:41:55 Pt arrives ambulatory to ED reporting bleeding with stools and 10/10 abdominal pain. States he was here last night but had to leave before receiving results d/t having to work. Says the pain became worse so he came back in. 29206-5Jrnhwoqge department Triage nzvyHT4955-12-68W93:48:52[facility] Triage noteTXT1.2.840.699305.1.13.104.2.7. 2.757690|[id number] for patient trdc86759-6Ljebsxmlz department NoteLNNARRATIVEFormatted C-CDA narrative [id number] L Williams RN[id number] 2QNLMUKWVJMWBQZUXJWPPZJ1588-07-06V6 1:48:521.2.840.495128.1.72.3.15|1.2 .840.819046.1.13.104.2.7.2.727879_2 [id number] Leah Lizama RN [facility] 2023-12-21 21:31:00 Nz3WnLqRG+h1UfA6qM/YR6R7Acgv21Wy6y4 11zog+UExGUEBT8Y+xpn1So8l0b8W9771-7 12-21T21:31:00 Patient leaving AMA,discussed risks of leaving against medical advice, Dr. Maciel aware and notified of patient's decision.Patient encouraged to seek medical attention for any new/prolonged/worsening of symptoms and stressed importance of follow up with a medical provider as soon as possible. AMA form explained, patient signed form.IV d'cd, dressing to site.Patient leaving ambulatory with steady gait, appears in no distress. 79504-3Rdcxmcypm department ZlrjOP2948-16-23S08:38:39Emergency department NoteTXT1.2.840.136963.1.13.104.2.7. 2.466626|[id number] for patient ivfm77156-3NhbrLFHGLUJNDUAUqaeuyacd C-CDA narrative [id number] Magaña RNUT[address]Od[id number] 9MRKILTSOOQOMBMMZSXNYIU8301-45-93O0 1:38:391.2.840.464464.1.72.3.15|1.2 .840.835877.1.13.104.2.7.2.727879_2 [id number] Mary Magaña RN [facility] 2023-12-21 21:30:00 5Pw6Kf+CheJ7SZS64uvwxMxkCnYrMLWSsqy 1x3LR+knGJC9dW9DH84rDB/wrIqyA4615-2 12-21T21:30:00 Pt wished to leave AMA. Pt states " yall were wonderful but 3am come real early." 05947-5Pwzmsxrdb department RwylDZ6474-04-02N20:36:58[facility] NoteTXT1.2.840.840200.1.13.104.2.7. 2.230587|[id number] for patient pjin42809-0ViczARZCUKZHANFGmxjtigaf C-CDA narrative textUT[address] Garcia [id number] 7VPSQNPUQGFVNCTCQTUNNAM5724-86-75J9 1:36:581.2.840.041566.1.72.3.15|1.2 .840.885486.1.13.104.2.7.2.727879_2 [id number] [facility] 2023-12-21 21:26:22 ICjtoNkZawUdpmRF4s9JtFxDqHNRinaNcHG 2SPEzZ8lBNl4lpp9GStUM5o2KcJpl2841-7 12-21T21:26:22 Pt asking to go outside and smoke, wants to go home and eat. Pt educated on risks of leaving AMA. Provider informed pt is in pain. 90270-6Eekjjkkuo department RyvkDN0399-50-00K09:33:35[facility] NoteTXT1.2.840.915269.1.13.104.2.7. 2.048358|[id number] for patient oofc22612-9VvxdKUFIZNEATKEKrxmegjvp C-CDA narrative [id number] R Shehadeh RNUT[id number] 6ORWNVKMQPWCSGWGPKEEZQI8266-08-54P7 1:33:351.2.840.982542.1.72.3.15|1.2 .840.382830.1.13.104.2.7.2.727879_2 [id number] Leah King RN [facility] 2023-12-21 19:31:50 7ux9+4grMAb9HqvlE9zLB4fNStMLr6rOzrd StFVhlT7lrMwWq3kLeCPv2uy+CZiR9932-2 12-21T19:31:50 Pt arrived ambulatory with complaints of bright red rectal bleeding and generalized abdominal pain this afternoon. Pt states his stool was normal consistency but continuous bright red blood. 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 States he vomits all the time but not something new today. 92684-9Byakaslce department Triage pzdvYH4353-12-89C75:33:28[facility] Triage noteTXT1.2.840.864390.1.13.104.2.7. 2.410818|[id number] for patient hyer81554-5Tkozstcjn department NoteLNNARRATIVEFormatted C-CDA narrative [id number] D Roman RN[address] Hx[id number] 4ZHXDPZDOERZDQXQKWHUICO6437-51-79P6 9:33:281.2.840.901949.1.72.3.15|1.2 .840.988912.1.13.104.2.7.2.727879_2 [id number] Gabi Esqeuda RN [facility] 2023-11-10 20:13:39 xvKebBPBIp2DtsKQDAb6JulC79f/TlPnCn4 hne/RX334oB7MYqZfCLd8gcxKCnnJ4212-7 11-10T20:13:39 Pt requesting to leave AMA. ERP notified. Pt counseled to remain, risks of leaving AMA including discussed with pt. Pt continued to decline further ER evaluation at this time. AMA papers signed, witnessed, and placed on patient's chart. Pt left ambulatory. VS stable, no ataxia noted, GCS 15, A&Ox4. 23942-5Qoasfzwov department WdxeAL1246-28-95C76:13:52[facility] NoteTXT1.2.840.795355.1.13.104.2.7. 2.565022|[id number] for patient qkgo79924-4VjviBTAYGKFZWMJSetrnqtuv C-CDA narrative [id number] R Goodrich RN[address] La[id number] 7CLQXWAOSGBYPYWNGNQBFGP1183-75-27J1 0:13:521.2.840.676669.1.72.3.15|1.2 .840.146692.1.13.104.2.7.2.727879_1 [id number] Briseida Medrano RN [facility] 2023-11-10 19:30:29 o2Or5/TrA0v5L4qip+7HHtdmVtxF/EYpEtf RIQInrM7ELoD/crBn61pVj8QS9u3e6141-1 11-10T19:30:29 Patient arrived to ED c/o SOB and COPD exacerbation. Symptoms started this morning. Patient wears 3L NC at home. Patient is a smoker. Patient states having the chills, diarrhea, and vomiting. States having sharp pains in chest from coughing. 69521-1Ldrzzxjij department Triage efrfYT9983-59-61Y75:35:27[facility] Triage noteTXT1.2.840.604069.1.13.104.2.7. 2.722946|[id number] for patient uqaw58659-0Eyznaieel department NoteLNNARRATIVEFormatted C-CDA narrative [id number]-Nvmbu McInnis RN[address] Rd[id number] 4VEUKACZEYPOYZJSFXSPEPW2759-21-47Z9 9:35:271.2.840.480442.1.72.3.15|1.2 .840.629912.1.13.104.2.7.2.727879_1 [id number] Sreedhar Gomez RN [facility]
[2024-03-15 03:50] LABS: Absolute Basophils 0.1 K/uL (0-0.5); Absolute Eosinophils 0.3 K/uL (0-0.5); Absolute Lymphocytes (CBC) 2.9 K/uL (0.7-4.9); Absolute Monocytes 0.5 K/uL (0.1-1.3); Absolute Neutrophil 3.1 K/uL (1.8-8.0); Basophils % 1.5 % (0-1.3); Eosinophils % 4.4 % (0-4.4); Hematocrit 43.8 % (39.6-49.0); Hemoglobin 14.8 g/dL (13.6-17.9); MCH 32.9 pg (27.0-35.0); MCHC 33.8 g/dL (32.0-36.0); MCV 97.3 fL (80-100); Monocytes % 7.4 % (3.3-12.3); Neutrophils % 44.7 % (41.7-73.7); Platelets 220 thou/uL (152-406); Red Cell Distribution Width 15.8 % (12.1-15.2)
[2024-03-15] MEDS ORDERED: METHYLPREDNISOLONE 125 MG INJ ONE (03:55)
[2024-03-15] MEDS ORDERED: IPRATROPIUM BROM 0.5MG/2.5ML ONE (03:55)
[2024-03-15] MEDS ORDERED: ONDANSETRON 4 MG/2 ML VIAL ONE (03:55)
[2024-03-15] MEDS ORDERED: ALBUTEROL 2.5 MG/3 ML NEB SOL ONE (03:55)
[2024-03-15] MEDS ORDERED: KETOROLAC 30 MG/ML INJ ONE (03:56)
[2024-03-15] MEDS ORDERED: THIAMINE 200 MG/2 ML INJ ONE (03:56)
[2024-03-15] MEDS ORDERED: LORazepam 2 MG/ML VIAL ONE (03:56)
[2024-03-15 04:03] LABS: PT Prothrombin Time 10.6 SECONDS (9.5-12.5); Protime INR 0.96
[2024-03-15 04:21] LABS: Albumin 3.7 g/dL (3.4-5.0); Albumin/Globulin Ratio 1.1 (1.1-1.8); Anion Gap 14.9 mEq/L (5.0-15.0); Bilirubin Direct 0.1 mg/dL (0-0.2); Bilirubin Indirect, Calculated 0.3 mg/dL (0.2-0.8); Bilirubin Total 0.4 mg/dL (0.2-1.0); Globulin 3.5 g/dL (2.3-3.5); Potassium 3.9 mEq/L (3.5-5.1); Protein, Total 7.2 g/dL (6.4-8.2); Troponin High Sensitivity 6.9 pg/mL (<58.9)
[2024-03-15] MEDS ORDERED: methocarbamoL 750 MG TAB ONE (04:49)
[2024-03-15] MEDS ORDERED: HYDROCODONE/APAP 10/325 TAB ONE (04:49)
--- NOTE | 2024-03-15 05:04 | EDPHYS ---
Physician Documentation [facility] Name: Randy Briones Age: 53 yrs Sex: Male : 1970 Arrival Date: 03/15/2024 Time: 03:26 Bed 20 Private MD: ED Physician Jose Crews HPI: 03/15 03:34 This 53 yrs old Male presents to ER via Unassigned with complaints of chest pain . sp4 05:05 53-year-old male presents with EMS for complaint of several days of chest pains also sp4 shortness of breath also left lower extremity pain. On presentation patient is heavily intoxicated and mildly agitated. Patient is well-known to me from prior visits. Patient is a heavy alcohol drinker self described as alcoholic. . Historical: - Allergies: 03:36 Lisinopril; jj7 - PMHx: 03:36 Alcoholism; COPD; Hepatitis B (Hypertension); home 02 3LNC PRN; Hypertension; jj7 Osteoporosis; - PSHx: 03:36 Amputation of left index finger; jj7 - Immunization history:: Adult Immunizations up to date, Client reports receiving the 2nd dose of the Covid vaccine, Flu vaccine is not up to date. - Infectious Disease History:: Denies. - Social history:: Smoking status: Patient reports the use of cigarette tobacco products, smokes two packs cigarettes per day. Patient uses alcohol, on a daily basis. patient/guardian reports chronic longstanding heavy alcohol consumption. patient/guardian reports recent binge of alcohol consumption. - Family history:: not pertinent. ROS: 05:05 Constitutional: Positive chest pain, positive shortness of breath, positive alcohol sp4 intoxication, positive left lower leg pain 05:05 All other systems are negative, Exam: 05:05 Constitutional: This is a well developed, well nourished patient who is awake, alert, sp4 moderate to mildly intoxicated male, mild agitation, facial plethora, short of breath acutely Head/Face: Normocephalic, atraumatic. Eyes: Pupils equal round and reactive to light, extra-ocular motions intact. Lids and lashes normal. Conjunctiva and sclera are not injected. Cornea within normal limits. Periorbital areas with no swelling, redness, or edema. ENT: Nares patent. No nasal discharge, no septal abnormalities noted. Tympanic membranes are normal and external auditory canals are clear. Oropharynx with no redness, swelling, or masses, exudates, or evidence of obstruction, uvula midline. Mucous membranes moist. Neck: Trachea midline, no thyromegaly or masses palpated, and no cervical lymphadenopathy. Supple, full range of motion without nuchal rigidity, or vertebral point tenderness. Chest/axilla: Normal chest wall appearance and motion. Nontender with no deformity. No lesions are appreciated. Cardiovascular: Regular rate and rhythm with a normal S1 and S2. No gallops, murmurs, or rubs. Normal PMI, no JVD. No pulse deficits. Respiratory: Lungs have equal breath sounds bilaterally, clear to auscultation and percussion. No rales, rhonchi or wheezes noted. No increased work of breathing, no retractions or nasal flaring. Abdomen/GI: Soft, with normal bowel sounds. No distension or tympany. No guarding or rebound. No evidence of tenderness throughout. Back: No spinal tenderness. No costovertebral tenderness. Skin: Warm, dry with normal turgor. Normal color with no rashes, no lesions, and no evidence of cellulitis. MS/ Extremity: Pulses equal, no cyanosis. Neurovascular intact. Full, normal range of motion. Neuro: Awake and alert, GCS 15, oriented to person, place, time, and situation. Cranial nerves II-XII grossly intact. Motor strength 5/5 in all extremities. Sensory grossly intact. Psych: Awake, alert, with orientation to person, place and time. Behavior, mood, and affect are within normal limits 05:05 ECG was reviewed by the Attending Physician. [phone] and her ECG is normal sinus rhythm sp4 at the rate of 96, rightward axis, prolonged QT Vital Signs: 03:30 BP 138 / 98; Pulse 93; Resp 18; Temp 97.1(TE); Pulse Ox 99% on 15 lpm non rebreather; oe Weight 79.38 kg; Height 5 ft. 4 in. ; 04:30 BP 149 / 108; Pulse 97; Resp 21; Pulse Ox 100% on Nebulizer Mask; jj7 05:15 BP 140 / 91; Pulse 90; Resp 20; Temp 98.3; Pulse Ox 98% on R/A; jj7 03:30 Body Mass Index 30.04 (79.38 kg, 162.56 cm) oe Shani Coma Score: 05:05 Eye Response: spontaneous(4). Motor Response: obeys commands(6). Verbal Response: sp4 oriented(5). Total: 15. MDM: 03:41 Patient medically screened. sp4 05:04 ED course: EXAM DESCRIPTION: Chest Single View CLINICAL HISTORY: CHEST PAIN COMPARISON: sp4 Chest x-ray 02/16/2024 TECHNIQUE: Single AP view of the chest. FINDINGS: Lung volumes adequate. Cardiac silhouette is unchanged. No pneumothorax. No large pleural effusion. Grossly unchanged subtle patchy right middle lobe and right lower lobe opacities, grossly unchanged from 02/16/2024. No new areas of focal consolidation. No acute bony finding. IMPRESSION: 1. No new areas of focal consolidation. 2. Grossly unchanged subtle patchy right middle lobe and right lower lobe opacities, grossly unchanged from prior exam, could represent atelectatic change versus atypical infectious/inflammatory process.. 05:05 Differential Diagnosis altered mental status, sepsis, flu, COPD . Data reviewed: vital sp4 signs, nurses notes, lab test result(s), EKG, radiologic studies. 05:05 Consideration of Admission/Observation Escalation of care including sp4 admission/observation considered. ED course: Patient stable for discharge home. Advised against alcohol use. . 03/15 03:32 Order name: Basic Metabolic Panel; Complete Time: 04:33 sp4 03/15 03:32 Order name: CBC with Diff; Complete Time: 04:33 sp4 03/15 03:32 Order name: LFT's; Complete Time: 04:33 sp4 03/15 03:32 Order name: Magnesium; Complete Time: 04:33 sp4 03/15 03:32 Order name: NT PRO-BNP; Complete Time: 04:33 sp4 03/15 03:32 Order name: PT-INR; Complete Time: 04:33 sp4 03/15 03:32 Order name: Troponin HS; Complete Time: 04:33 sp4 03/15 03:32 Order name: XRAY Chest (1 view) 4 03/15 03:32 Order name: Cardiac monitoring; Complete Time: 03:51 sp4 03/15 03:32 Order name: EKG - Nurse/Tech; Complete Time: 03:51 sp03/15 03:32 Order name: IV Saline Lock; Complete Time: 03:51 sp4 03/15 03:32 Order name: Labs collected and sent; Complete Time: 03:51 sp4 03/15 03:32 Order name: O2 Per Protocol; Complete Time: 03:51 sp4 03/15 03:32 Order name: O2 Sat Monitoring; Complete Time: 03:51 sp4 EC:05 Rate is 96 beats/min. Rhythm is regular, Sinus Rhythm. Right axis deviation noted. [place] sp4 interval is normal. QRS interval is normal. QT interval is prolonged. No Q waves. T waves are Normal. No ST changes noted. Clinical impression: No evidence of ischemia. Interpreted by me. Reviewed by me. Administered Medications: 04:08 Drug: Ondansetron IVP 4 mg IVP once; over 2 minutes Route: IVP; Site: left forearm; jj7 04:47 Follow up: Response: No adverse reaction jj7 04:08 Drug: Thiamine IV 100 mg IV at bolus once Route: IV; Rate: bolus; Site: left forearm; jj7 04:46 Follow up: Response: No adverse reaction; IV Status: Completed infusion jj7 04:09 Drug: Ativan IVP 2 mg IVP once Route: IVP; Site: left forearm; jj7 04:48 Follow up: Response: No adverse reaction jj7 04:09 Drug: Ketorolac IVP 30 mg IVP once Route: IVP; Site: left forearm; jj7 04:47 Follow up: Response: Pain is unchanged, physician notified jj7 04:09 Drug: Albuterol Inhalation 2.5 mg Inhalation every 20 minutes x3 Route: Inhalation; jj7 04:09 Drug: Ipratropium Inhalation Aerosol 0.5 mg Inhalation once; Every 20 min for a total jj7 of 3 treatments x3 Route: Inhalation; 04:09 Drug: MethylPrednisoLONE IVP 125 mg IVP once Route: IVP; Site: left forearm; jj7 04:47 Follow up: Response: No adverse reaction jj7 04:29 Drug: Albuterol Inhalation 2.5 mg Inhalation every 20 minutes x3 Route: Inhalation; jj7 04:29 Drug: Ipratropium Inhalation Aerosol 0.5 mg Inhalation once; Every 20 min for a total jj7 of 3 treatments x3 Route: Inhalation; 04:47 Drug: Albuterol Inhalation 2.5 mg Inhalation every 20 minutes x3 Route: Inhalation; jj7 04:47 Drug: Ipratropium Inhalation Aerosol 0.5 mg Inhalation once; Every 20 min for a total jj7 of 3 treatments x3 Route: Inhalation; 04:51 Drug: [place] PO 10 mg-325 mg 1 tabs PO once Route: PO; jj7 05:27 Follow up: Response: Marked relief of symptoms j7 04:51 Drug: Methocarbamol PO 750 mg PO once Route: PO; j7 05:26 Follow up: Response: No adverse reaction jj7 Disposition Summary: 03/15/24 05:03 Discharge Ordered Notes: Location: Home sp4 Problem: new sp4 Symptoms: have improved sp4 Condition: Stable sp4 Diagnosis - COPD/ Chronic obstructive pulmonary disease with (acute) exacerbation sp4 - Alcohol abuse with intoxication sp4 - Chest pain, unspecified sp4 Followup: sp4 - With: Private Physician - When: 7 - 10 days - Reason: Recheck today's complaints Discharge Instructions: - Discharge Summary Sheet sp4 - Living With COPD sp4 Signatures: Dispatcher [employer] EDOmega Allison RN RN jj7 Jose Crews MD MD sp4 Corrections: (The following items were deleted from the chart) 03:33 03:33 BASIC METABOLIC PANEL+C.LAB.BRZ ordered. EDMS EDMS 03:33 03:33 CBC+H.LAB.BRZ ordered. EDMS EDMS 03:33 03:33 HEPATIC FUNCTION+C.LAB.BRZ ordered. EDMS EDMS 03:33 03:33 MAGNESIUM+C.LAB.BRZ ordered. EDMS EDMS 03:33 03:33 PROBNP+C.LAB.BRZ ordered. EDMS EDMS 03:33 03:33 PROTIME (+INR)+COAG.LAB.BRZ ordered. EDMS EDMS 03:33 03:33 Troponin High Sensitivity+C.LAB.BRZ ordered. EDMS EDMS 03:33 03:33 Chest Single View+RAD.RAD.BRZ ordered. EDMS EDMS
--- NOTE | 2024-03-15 05:04 | ER ---
Nurse's Notes [facility] Name: Randy Briones Age: 53 yrs Sex: Male : 1970 Arrival Date: 03/15/2024 Time: 03:26 Bed 20 Private MD: Diagnosis: COPD/ Chronic obstructive pulmonary disease with (acute) exacerbation;Alcohol abuse with intoxication;Chest pain, unspecified Presentation: 03/15 03:30 Chief complaint: EMS states: SOB,CP AND LEFT LEG PAIN FOR 4-5 DAYS. ON AN ALCOHOL jj7 BINGE. HASN'T HAD ANYTHING TO DRINK FOR 7 HRS. Coronavirus screen: At this time, the client does not indicate any symptoms associated with coronavirus-19. Ebola Screen: No symptoms or risks identified at this time. Initial Sepsis Screen: Does the patient meet any 2 criteria? No. Patient's initial sepsis screen is negative. Does the patient have a suspected source of infection? No. Patient's initial sepsis screen is negative. Risk Assessment: Do you want to hurt yourself or someone else? Patient reports no desire to harm self or others. Onset of symptoms was March 10, 2024. Care prior to arrival: Medication(s) given: Albuterol Neb x 1, ASA, x 4, Atrovent Neb x 1, IV initiated. 20 GA, in the left forearm, Med neb given. 03:30 Method Of Arrival: EMS: [facility] jj7 03:30 Acuity: CANDACE 3 jj7 Triage Assessment: 03:36 General: Appears in no apparent distress. uncomfortable, Behavior is calm, cooperative, jj7 appropriate for age, anxious. Pain: Complains of pain in chest and left leg. Respiratory: Reports shortness of breath at rest labored breathing. Musculoskeletal: Reports pain in left leg. Historical: - Allergies: 03:36 Lisinopril; jj7 - PMHx: 03:36 Alcoholism; COPD; Hepatitis B (Hypertension); home 02 3LNC PRN; Hypertension; jj7 Osteoporosis; - PSHx: 03:36 Amputation of left index finger; jj7 - Immunization history:: Adult Immunizations up to date, Client reports receiving the 2nd dose of the Covid vaccine, Flu vaccine is not up to date. - Infectious Disease History:: Denies. - Social history:: Smoking status: Patient reports the use of cigarette tobacco products, smokes two packs cigarettes per day. Patient uses alcohol, on a daily basis. patient/guardian reports chronic longstanding heavy alcohol consumption. patient/guardian reports recent binge of alcohol consumption. - Family history:: not pertinent. Screenin:30 Abuse screen: Denies threats or abuse. Nutritional screening: No deficits noted. jj7 Tuberculosis screening: No symptoms or risk factors identified. 03:[address] [facility] ED Fall Risk Assessment (Adult) History of falling in the last 3 months, jj7 including since admission No falls in past 3 months (0 pts) Confusion or Disorientation No (0 pts) Intoxicated or Sedated Yes (3 pts) Impaired Gait No (0 pts) Mobility Assist Device Used No (0 pt) Altered Elimination No (0 pt) Score/Fall Risk Level 3 or more points = High Risk Oriented to surroundings, Maintained a safe environment, Educated pt \T\ family on fall prevention, incl call for assistance when getting out of bed. Assessment: 03:30 Reassessment: SEE TRIAGE ASSESSMENT. jj7 Vital Signs: 03:30 BP 138 / 98; Pulse 93; Resp 18; Temp 97.1(TE); Pulse Ox 99% on 15 lpm non rebreather; oe Weight 79.38 kg; Height 5 ft. 4 in. ; 04:30 BP 149 / 108; Pulse 97; Resp 21; Pulse Ox 100% on Nebulizer Mask; jj7 05:15 BP 140 / 91; Pulse 90; Resp 20; Temp 98.3; Pulse Ox 98% on R/A; jj7 03:30 Body Mass Index 30.04 (79.38 kg, 162.56 cm) oe [place] Coma Score: 05:05 Eye Response: spontaneous(4). Motor Response: obeys commands(6). Verbal Response: sp4 oriented(5). Total: 15. ED Course: 03:30 Patient arrived in ED. vk 03:30 Patient has correct armband on for positive identification. Bed in low position. Call jj7 light in reach. Side rails up X 1. Provided Education on: USE OF CALL MERINO. Client placed on continuous cardiac and pulse oximetry monitoring. NIBP monitoring applied. quality assurance monitor final on. Warm blanket given. 03:31 Omega Luke RN is Primary Nurse. jj7 03:31 Jose Crews MD is Attending Physician. sp4 03:36 Triage completed. jj7 03:36 Arm band placed on right wrist. Patient placed in an exam room, on a stretcher, on jj7 oxygen. 03:44 Troponin HS Sent. oe 03:44 PT-INR Sent. oe 03:44 NT PRO-BNP Sent. oe 03:44 Magnesium Sent. oe 03:44 LFT's Sent. oe 03:44 CBC with Diff Sent. oe 03:44 Basic Metabolic Panel Sent. oe 03:51 Basic Metabolic Panel Sent. jj7 03:51 CBC with Diff Sent. jj7 03:51 LFT's Sent. jj7 03:51 Magnesium Sent. jj7 03:51 NT PRO-BNP Sent. jj7 03:51 PT-INR Sent. jj7 03:51 Troponin HS Sent. jj7 03:52 EKG done, by ED staff, reviewed by Jose Crews MD. oe 04:00 XRAY Chest (1 view) In Process Unspecified. EDMS 05:29 No provider procedures requiring assistance completed. IV discontinued, intact, jj7 bleeding controlled, No redness/swelling at site. Pressure dressing applied. Administered Medications: 04:08 Drug: Ondansetron IVP 4 mg IVP once; over 2 minutes Route: IVP; Site: left forearm; jj7 04:47 Follow up: Response: No adverse reaction jj7 04:08 Drug: Thiamine IV 100 mg IV at bolus once Route: IV; Rate: bolus; Site: left forearm; jj7 04:46 Follow up: Response: No adverse reaction; IV Status: Completed infusion jj7 04:09 Drug: Ativan IVP 2 mg IVP once Route: IVP; Site: left forearm; jj7 04:48 Follow up: Response: No adverse reaction jj7 04:09 Drug: Ketorolac IVP 30 mg IVP once Route: IVP; Site: left forearm; jj7 04:47 Follow up: Response: Pain is unchanged, physician notified jj7 04:09 Drug: Albuterol Inhalation 2.5 mg Inhalation every 20 minutes x3 Route: Inhalation; jj7 04:09 Drug: Ipratropium Inhalation Aerosol 0.5 mg Inhalation once; Every 20 min for a total jj7 of 3 treatments x3 Route: Inhalation; 04:09 Drug: MethylPrednisoLONE IVP 125 mg IVP once Route: IVP; Site: left forearm; jj7 04:47 Follow up: Response: No adverse reaction jj7 04:29 Drug: Albuterol Inhalation 2.5 mg Inhalation every 20 minutes x3 Route: Inhalation; jj7 04:29 Drug: Ipratropium Inhalation Aerosol 0.5 mg Inhalation once; Every 20 min for a total jj7 of 3 treatments x3 Route: Inhalation; 04:47 Drug: Albuterol Inhalation 2.5 mg Inhalation every 20 minutes x3 Route: Inhalation; jj7 04:47 Drug: Ipratropium Inhalation Aerosol 0.5 mg Inhalation once; Every 20 min for a total jj7 of 3 treatments x3 Route: Inhalation; 04:51 Drug: [place] PO 10 mg-325 mg 1 tabs PO once Route: PO; jj7 05:27 Follow up: Response: Marked relief of symptoms jj7 04:51 Drug: Methocarbamol PO 750 mg PO once Route: PO; jj7 05:26 Follow up: Response: No adverse reaction jj7 Medication: 03:30 VIS not applicable for this client. jj7 Outcome: 05:03 Discharge ordered by . letha 05:29 Discharged to home ambulatory, jj7 05:29 Condition: improved 05:29 Discharge instructions given to patient, Instructed on discharge instructions, follow up and referral plans. Demonstrated understanding of instructions, follow-up care, 05:29 Patient left the ED. jj7 Signatures: Dispatcher [employer] EDPA Kentrell Christian Juwairiyah, RN RN jj7 Jose Crews MD MD sp4 Kruse, Vivian vk Corrections: (The following items were deleted from the chart) 05:35 05:34 Patient left the ED. jj7 jj7
[2024-03-15 06:10] VITALS: BP 140/91; TEMP 98.3; O2SAT 98
--- NOTE | 2024-03-15 13:59 | EKG ---
Test Date: 2024-03-15 Test Time: 03:48:57 System Sales Consultant: NAY MEASUREMENT RESULTS: Intervals: Rate: 96 CT: 138 QRSD: 102 QT: 396 QTc: 500 [place]: P: 57 CT: 138 QRS: 92 T: 77 INTERPRETIVE STATEMENTS: Normal sinus rhythm Rightward axis Incomplete right bundle branch block Prolonged QT Abnormal ECG Compared to ECG 02/22/2024 21:20:51 Right-axis deviation now present Incomplete right bundle-branch block now present Prolonged QT interval now present Sinus tachycardia no longer present ST (T wave) deviation no longer present Electronically Signed On 03-15-24 13:58:09 CDT by Rosalion Albert
--- NOTE | 2024-03-15 16:02 | RAD REPORT ---
EXAM DESCRIPTION: Chest Single View CLINICAL HISTORY: CHEST PAIN COMPARISON: Chest x-ray 02/16/2024 TECHNIQUE: Single AP view of the chest. FINDINGS: Lung volumes adequate. Cardiac silhouette is unchanged. No pneumothorax. No large pleural effusion. Grossly unchanged subtle patchy right middle lobe and right lower lobe opacities, grossly unchanged f rom 02/16/2024. No new areas of focal consolidation. No acute bony finding. IMPRESSION: 1. No new areas of focal consolidation. 2. Grossly unchanged subtle patchy right middle lobe and right lower lobe opacities, grossly unchan ged from prior exam, could represent atelectatic change versus atypical infectious/inflammatory proce ss. Electronically signed by: Ulysses Anthony MD 03/15/2024 04:54 AM CDT Due to temporary technical issues with the PACS/Fluency reporting system, reports are being signed by the in house radiologists without review as a courtesy to insure prompt reporting. The interpreting radiologist is fully responsible for the content of the report.
== END 2024-03-15 05:34 | disposition home or self-care (01) ==
LOC: ER 03:26
DX: J44.1 Chronic obstructive pulmonary disease with (acute) exacerbation (principal); F10.229 Alcohol dependence with intoxication, unspecified; I10 Essential (primary) hypertension; F17.210 Nicotine dependence, cigarettes, uncomplicated; Z88.8 Allergy status to other drugs, medicaments and biological substances
CPT/HCPCS: 93005; 85025; 80048; 36415; 83735; 85610; 80076; 84484; 83880; 71045; J3411; J7613; J7644; J2919; J2405

== ENCOUNTER 2024-03-23 06:01 | Emergency (ER) | payer OTHER ==
--- OUTSIDE RECORDS SUMMARY | 2024-03-23 06:06 | XMS REPORT | Continuity of Care Document ---
Author Name Unknown Address [address] [facility] [address] [place] [address] [facility] Address [address] [facility] [address] [place] [address] Care Team Providers Care Desk Pens Assembler Name Role Phone ADRIANNA LOPEZ Primary Care Physician Unavailab WENDY High Attending Clinician Unava ilPEG Ruiz Attending Clinician Unavailable Peg Camp NP Attending Clinician [phone] DEMETRIA DAVENPORT Attending Clinician Unav Demetria Howard MD Attending Clinician + Christina Victoria Attending Clinician [phone] JAC NAVARRO Attending Clinician Unavailable Jac Navarro MD Attending Clinician [phone] TYLER ROWE Attending Clinician Unavailab MELINDA Boothe Attending Clinician Unavailable Melinda Maciel DO Attending Clinician [phone] CHRISTY HOLLIDAY Attending Clinician Unavailable Christy Holliday MD Attending Clinician DARIEN LOBO Attending Clinician Unavailable MARIA ELENA CHAN MEDICAL Attending George akins Unavailable DENISE SUNG Attending Clinician Unavailable KARLEY ADAMS Attending Clinician Unavailable JAC NAVARRO Admitting Clinician Unavailable MELINDA MACIEL Admitting Clinician Unavailable CHRISTY HOLLIDAY Admitting Clinician Unavailable Payers Payer Name Policy Type Policy Number Effective Date Expirati on Date Source 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 ON 9 [id number] 2023 00:00:00 Problems Condition Name Condition Details Condition Category Status Onset Date Resolution Date Last Treatment Date Treating Clinician Comments Source Acute exacerbati on of chronic obstructiv e pulmonary disease (COPD) Acute exacerbati on of chronic obstructiv e pulmonary disease (COPD) Disease Active 03-24 00:00: 00 [facility] Obesity (BMI 30-39.9) Obesity (BMI 30-39.9) Disease Active 03-24 00:00: 00 [facility] Allergies, Adverse Reactions, Alerts Allergy Name Allergy Type Status Severity Reaction(s) Onset Date Inactive Date Treating Clinician Comments Source Lisinopr il Propensi ty to adverse reaction s Active Anaphylaxis 03-24 00:00: 00 [facility] LISINOPR IL DRUG INGREDI Active Anaphylaxis 03-24 00:00: 00 [facility] Social History Social Habit Start Date Stop Date Quantity Comments Source History of tobacco use Smokes tobacco daily [facility] of Social function 2024-02-08 00:00:00 2024-02-08 00:00:00 [facility] Alcohol intake 2024-02-08 00:00:00 2024-02-08 00:00:00 4.29 /d [facility] Exposure to SARS-CoV-2 (event) 2022-10-04 00:00:00 2022-10-14 10:25:00 Not sure [facility] Tobacco use and exposure 2018-03-24 00:00:00 2018-03-24 00:00:00 User of smokeless tobacco [facility] Tobacco Comment 2018-03-24 00:00:00 2018-03-24 00:00:00 trying to quit [facility] Sex Assigned At 1970 00:00:00 1970 00:00:00 [facility] Smoking Status Start Date Stop Date Source Smokes tobacco daily 2018-03-24 00:00:00 [facility] Medications Ordered Medication Name Filled Medication Name Start Date Stop Date Current Medication? Ordering Clinician Indication Dosage Frequency Signature (SIG) Comments Components Source ketorolac (TORADOL) injection 30 mg 02-17 03:15: 00 02-17 15:14 :00 Yes 30mg 30 mg, Slow IV Push, ONCE, 1 dose, On Thu02/17/24 at 2215, Routine [facility] methylpredn isolone sod succ (SOLU-MEDRO L) injection 125 mg 02-17 03:00: 00 02-17 14:59 :00 Yes 125mg 125 mg, Intravenou s, ONCE, 1 dose, On Thu02/17/24 at 2200, 2 mL [facility] ipratropium -albuteroL (DUONEB) 0.5 mg-3 mg(2.5 mg base)/3 mL nebulizer solution 6 mL 02-17 03:00: 00 02-17 14:59 :00 Yes 6mL 6 mL, Inhalation , ONCE NOW, 1 dose, On Thu02/17/24 at 2200, Routine [facility] NaCl 0.9% (NS) bolus infusion 1,000 mL 02-17 03:00: 00 02-17 14:59 :00 Yes 1000mL at 999 mL/hr, 1,000 mL, IV Infusion, ONCE, 1 dose, On Thu02/17/24 at 2200, LAURYN [facility] triamterene -hydrochlor othiazide 37.5-25 mg per capsule 02-16 20:52: 37 02-16 00:00 :00 No 1{capsu le} Take 1 capsule by mouth every morning. [facility] albuterol 5 mg/mL nebulizer solution 02-16 20:51: 42 02-16 00:00 :00 No 2.5mg Inhale 2.5 mg every 6 (six) hours as needed for Wheezing or Shortness of Breath. [facility] ketorolac (TORADOL) injection 15 mg 02-08 03:00: 00 02-08 02:21 :00 No 15mg 15 mg, Slow IV Push, ONCE, 1 dose, On Thu02/08/24 at 2200, Routine [facility] iopamidol (ISOVUE 370-500 mL) injection 100 mL 02-07 22:30: 00 02-07 22:30 :00 Yes [id number] 100mL 100 mL, Intravenou s, ONCE, 1 dose, On Thu02/08/24 at 1730, Routine [facility] ipratropium -albuteroL (DUONEB) 0.5 mg-3 mg(2.5 mg base)/3 mL nebulizer solution 3 mL 02-07 21:15: 00 02-07 20:45 :00 No 3mL 3 mL, Inhalation , ONCE, 1 dose, On Thu02/08/24 at 1615, Routine [facility] morpHINE (2 mg/mL) injection 4 mg 02-07 21:15: 00 02-07 20:27 :00 No 4mg 4 mg, Slow IV Push, ONCE, 1 dose, On Thu02/08/24 at 1615, STAT [facility] ondansetron (ZOFRAN (PF)) injection 4 mg 02-07 21:15: 00 02-07 20:22 :00 No 4mg 4 mg, Slow IV Push, ONCE, 1 dose, On Thu02/08/24 at 1615, LAURYN [facility] magnesium sulfate in water 2 gram/50 mL (4 %) infusion 2 g 02-07 21:00: 00 02-07 21:30 :00 No 2g 2 g, IV Piggyback, Administer over 60 Minutes, ONCE, 1 dose, On Thu02/08/24 at 1600, Routine [facility] ipratropium -albuteroL (DUONEB) 0.5 mg-3 mg(2.5 mg base)/3 mL nebulizer solution 3 mL 02-07 20:30: 00 02-07 19:31 :00 No 3mL 3 mL, Inhalation , ONCE, 1 dose, On Thu02/08/24 at 1530, Routine [facility] HYDROcodone -acetaminop hen (NORCO) 10-325 mg tablet 1 tablet 01-13 13:15: 00 01-13 12:15 :00 No 1{tbl} 1 tablet, Oral, ONCE, 1 dose, On Kym 01/14/24 at 0715, LAURYN [facility] ipratropium -albuteroL (DUONEB) 0.5 mg-3 mg(2.5 mg base)/3 mL nebulizer solution 3 mL 01-13 13:00: 00 01-13 11:53 :00 No 3mL 3 mL, Inhalation , ONCE NOW, 1 dose, On Thu01/14/24 at 0700, LAURYN [facility] ondansetron (ZOFRAN (PF)) injection 4 mg 01-13 11:30: 00 01-13 11:37 :00 No 4mg 4 mg, Slow IV Push, ONCE, 1 dose, On Thu01/14/24 at 0530, [facility] morpHINE (4 mg/mL) injection 4 mg 01-13 11:30: 00 01-13 11:37 :00 No 4mg 4 mg, Slow IV Push, ONCE, 1 dose, On Thu01/14/24 at 0530, STAT [facility] azithromyci n (ZITHROMAX Z-PORTER) 250 mg tablet 01-13 00:00: 00 02-16 00:00 :00 No [id number] Take 500 mg on day 1 then 250 mg on days 2-5 [facility] predniSONE 20 mg tablet 01-13 00:00: 00 02-16 00:00 :00 No [id number] Take 1 po tid x 2 days, then take 1 po bid x 3 days, then take 1 po daily x 3 days. [facility] acetaminoph en-codeine 300-30 mg tablet 01-13 00:00: 00 01-21 04:59 :00 Yes [id number] 1{tbl} Take 1 tablet by mouth every 6 (six) hours as needed for Pain (scale 7-10) (severe cough) for up to 7 days. Indication s: acute pain, severe cough [facility] clonazePAM 1 mg tablet 12-26 00:00: 00 02-16 00:00 :00 No 1mg Take 1 tablet by mouth at bedtime as needed for Other (anxiety). [facility] KCL (KLOR-CON M20) tablet 40 mEq 12-23 05:00: 00 12-23 05:07 :00 No 40meq 40 mEq, Oral, ONCE, 1 dose, On Thu12/22/23 at 2300, [facility] NaCl 0.9% (NS) bolus infusion 1,000 mL 12-23 05:00: 00 12-23 05:09 :00 No 1000mL at 999 mL/hr, 1,000 mL, IV Infusion, ONCE, 1 dose, On Thu12/22/23 at 2300, [facility] ondansetron (ZOFRAN (PF)) injection 4 mg 12-23 04:30: 00 12-23 04:24 :00 No 4mg 4 mg, Slow IV Push, ONCE, 1 dose, On Thu12/22/23 at 2230, [facility] maalox:diph enhydrAMINE :lidocaine 2 % viscous 1:1:1 (FIRST-MOUT HWASH BLM) oral suspension 15 mL 12-23 04:15: 00 12-23 04:17 :00 No 15mL 15 mL, Oral, ONCE, 1 dose, On Thu12/22/23 at 2215, Routine [facility] famotidine (PEPCID (PF)) injection 20 mg 12-23 04:15: 00 12-23 04:15 :00 No 20mg 20 mg, Slow IV Push, ONCE, 1 dose, On Thu12/22/23 at 2215, LAURYN [facility] HYDROcodone -acetaminop hen (NORCO) 10-325 mg tablet 1 tablet 12-22 04:30: 00 12-22 16:29 :00 No 1{tbl} 1 tablet, Oral, ONCE, 1 dose, On Thu12/21/23 at 2230, Routine [facility] pantoprazol e (PROTONIX) 80 mg in NaCl 0.9% (NS) 20 mL syringe 12-22 04:15: 00 12-22 16:14 :00 No 80mg 80 mg, IV Push, ONCE, 1 dose, On Thu12/21/23 at 2215, Administer over 2 Minutes, 20 mL [facility] iopamidol (ISOVUE 370-500 mL) injection 100 mL 12-22 03:30: 00 12-22 03:30 :00 No [id number] 100mL 100 mL, Intravenou s, ONCE, 1 dose, On Thu12/21/23 at 2130, Routine [facility] morpHINE (4 mg/mL) injection 4 mg 12-22 03:30: 00 12-22 02:16 :00 No 4mg 4 mg, Slow IV Push, ONCE, 1 dose, On Thu12/21/23 at 2130, Routine [facility] ondansetron (ZOFRAN (PF)) injection 4 mg 12-22 02:45: 00 12-22 02:02 :00 No 4mg 4 mg, Slow IV Push, ONCE, 1 dose, On Thu12/21/23 at 2045, Routine [facility] hydrocortis one 25 mg suppository 12-22 00:00: 00 Yes [id number] 25mg Insert 1 Suppositor y into rectum 2 (two) times daily as needed for Rectal itching/pa in. [facility] ondansetron 4 mg disintegrat ing tablet 12-22 00:00: 00 02-16 00:00 :00 No [id number] 4mg Take 1 tablet by mouth every 8 (eight) hours as needed for Nausea and Vomiting (N/V). [facility] amoxicillin -clavulanat e 875-125 mg per tablet 12-22 00:00: 00 01-02 05:59 :00 No [id number] 1{tbl} Take 1 tablet by mouth every 12 (twelve) hours for 10 days. [facility] methylpredn isolone sod succ (SOLU-MEDRO L) injection 125 mg 2022-11 08:45: 00 10-27 20:44 :00 No 125mg 125 mg, Slow IV Push, ONCE, 1 dose, On Thu10/27/23 at 0245, STAT [facility] ipratropium -albuteroL (DUONEB) 0.5 mg-3 mg(2.5 mg base)/3 mL nebulizer solution 3 mL 2022-11 08:45: 00 10-27 20:44 :00 No 3mL 3 mL, Inhalation , ONCE NOW, 1 dose, On Thu10/27/23 at 0245, LAURYN [facility] diazePAM (VALIUM) tablet 10 mg 2022-11 07:45: 00 10-27 19:44 :00 No 10mg 10 mg, Oral, ONCE, 1 dose, On Thu10/27/23 at 0145, LAURYN [facility] levoFLOXaci n (LEVAQUIN) tablet 500 mg 2022-11 07:45: 00 10-27 19:44 :00 No 500mg 500 mg, Oral, ONCE, 1 dose, On Thu10/27/23 at 0145, LAURYN
Re ason for Anti-Infec tive: Empiric Non-Surgic al Prophylaxi s
Durat ion of therapy: Once (ED) [facility] iopamidol (ISOVUE 370-500 mL) injection 70 mL 2021-11 18:30: 00 10-14 18:30 :00 No [id number] 70mL 70 mL, Intravenou s, ONCE, 1 dose, On Thu10/14/22 at 1230, Routine [facility] methylpredn isolone sod succ (SOLU-MEDRO L) injection 125 mg 2021-11 18:00: 00 Yes 125mg 125 mg, Intravenou s, Q6H, First dose on Thu10/14/22 at 1200, Until Discontinu ed, Routine [facility] furosemide (LASIX) injection 40 mg 2021-11 17:45: 00 10-14 16:39 :00 No 40mg 40 mg, IV Push, ONCE, 1 dose, On Thu10/14/22 at 1145, LAURYN [facility] ipratropium -albuteroL (DUONEB) 0.5 mg-3 mg(2.5 mg base)/3 mL nebulizer solution 3 mL 2021-11 17:30: 00 10-14 16:41 :00 No 3mL 3 mL, Inhalation , ONCE, 1 dose, On Thu10/14/22 at 1130, Routine [facility] FENTanyl PF (SUBLIMAZE (PF)) injection 50 mcg 2021-11 16:45: 00 10-14 16:39 :00 No 50ug 50 mcg, Slow IV Push, ONCE, 1 dose, On Thu10/14/22 at 1045, Routine [facility] levoFLOXaci n 750 mg tablet 2021-11 00:00: 00 02-16 00:00 :00 No [id number] 750mg Take 1 tablet by mouth every 24 (twenty-fo ur) hours. [facility] HYDROcodone -acetaminop hen (NORCO) 10-325 mg tablet 1 tablet 03-12 12:15: 00 03-12 11:21 :00 No 1{tbl} 1 tablet, Oral, ONCE, 1 dose, On Thu03/12/22 at 0715, Routine [facility] HYDROcodone -acetaminop hen 10-325 mg tablet 03-12 00:00: 00 03-20 04:59 :00 No [id number] 1{tbl} Take 1 tablet by mouth every 6 (six) hours as needed for Pain (scale 7-10) for up to 7 days. Indication s: acute pain [facility] ipratropium -albuteroL (DUONEB) 0.5 mg-3 mg(2.5 mg base)/3 mL nebulizer solution 3 mL 02-20 13:00: 00 Yes 3mL 3 mL, Inhalation , QID, First dose on Thu02/20/22 at 0800, Until Discontinu ed, Routine [facility] methylPREDN ISolone sod succ (SOLU-MEDRO L (PF)) injection 40 mg 02-20 11:45: 00 02-20 10:43 :00 No 40mg 40 mg, Intravenou s, ONCE, 1 dose, On Thu02/20/22 at 0645, STAT [facility] foLIC acid (FOLATE) tablet 1 mg 02-20 11:45: 00 02-20 10:41 :00 No 1mg 1 mg, Oral, ONCE, 1 dose, On Thu02/20/22 at 0645, LAURYN [facility] thiamine (VITAMIN B1) injection 100 mg 02-20 11:45: 00 02-20 10:43 :00 No 100mg 100 mg, Intravenou s, ONCE, 1 dose, On Thu02/20/22 at 0645, LAURYN [facility] LORazepam (ATIVAN) injection 2 mg 02-20 11:45: 00 02-20 10:42 :00 No 2mg 2 mg, Slow IV Push, ONCE, 1 dose, On Thu02/20/22 at 0645, STAT [facility] ipratropium -albuteroL (DUONEB) 0.5 mg-3 mg(2.5 mg base)/3 mL nebulizer solution 3 mL 02-20 10:30: 00 02-20 09:34 :00 No 3mL 3 mL, Inhalation , ONCE, 1 dose, On [facility] 02/20/22 at 0530, Routine [facility] albuterol 90 mcg/actuati on inhaler 02-20 00:00: 00 Yes [id number] 2{puff} Inhale 2 Puffs every 4 (four) hours as needed for Wheezing or Shortness of Breath. [facility] triamterene -hydrochlor othiazid 37.5-25 mg tablet 02-20 00:00: 00 Yes [id number] 1{tbl} Take 1 tablet by mouth daily. [facility] chlordiazeP OXIDE 25 mg capsule 02-20 00:00: 00 Yes [id number] 25mg Take 1 capsule by mouth every 6 (six) hours as needed for Anxiety, Agitation, Heart Rate => 100 or Detox. [facility] predniSONE 10 mg tablet 02-20 00:00: 00 02-16 00:00 :00 No [id number] TAKE ONE TABLET BY MOUTH DAILY [facility] albuterol 2.5 mg /3 mL (0.083 %) nebulizer solution 02-20 00:00: 00 02-16 00:00 :00 No [id number] 2.5mg Inhale 3 mL every 4 (four) hours. May also nebulize one extra every 6 hours. [facility] budesonide- formoteroL 160-4.5 mcg/actuati on inhaler 02-20 00:00: 00 02-16 00:00 :00 No [id number] 2{puff} Inhale 2 Puffs 2 (two) times daily. [facility] albuterol 5 mg/mL nebulizer solution 07-16 14:02: 20 Yes 2.5mg Inhale 2.5 mg every 6 (six) hours as needed for Wheezing or Shortness of Breath. [facility] budesonide- formoterol 160-4.5 mcg/actuati on inhaler 07-16 00:00: 00 Yes 2{puff} Inhale 2 Puffs 2 (two) times daily. [facility] albuterol 2.5 mg /3 mL (0.083 %) nebulizer solution 07-16 00:00: 00 Yes 2.5mg Inhale 3 mL every 4 (four) hours as needed for Wheezing or Shortness of Breath. [facility] triamterene -hydrochlor othiazide 37.5-25 mg per capsule 03-26 16:32: 14 Yes 1{capsu le} Take 1 capsule by mouth every morning. [facility] amLODIPine 10 mg tablet 03-26 16:32: 14 Yes 10mg Take 10 mg by mouth at bedtime. [facility] gabapentin 100 mg capsule 03-26 16:32: 14 Yes 100mg Take 100 mg by mouth 2 (two) times daily as needed ([facility] pain). [facility] foLIC acid 1 mg tablet 03-26 16:32: 14 Yes 1mg Take 1 mg by mouth daily. [facility] budesonide- formoterol 160-4.5 mcg/actuati on inhaler 03-26 00:00: 00 02-16 00:00 :00 No 2{puff} Inhale 2 Puffs 2 (two) times daily. [facility] Immunizations Ordered Immunization Name Filled Immunization Name Date Status Comments Source SARS-COV-2 COVID-19 PFIZER VACCINE 2021-02-03 00:00:00 Completed [facility] SARS-COV-2 COVID-19 PFIZER VACCINE 2021-02-03 00:00:00 Completed [facility] SARS-COV-2 COVID-19 PFIZER VACCINE 2021-02-03 00:00:00 Completed [facility] SARS-COV-2 COVID-19 PFIZER VACCINE 2021-01-13 00:00:00 Completed [facility] SARS-COV-2 COVID-19 PFIZER VACCINE 2021-01-13 00:00:00 Completed [facility] SARS-COV-2 COVID-19 PFIZER VACCINE 2021-01-13 00:00:00 Completed [facility] Pneumococcal Polysaccharide, PPSV23 (PNEUMOVAX) 2018-03-26 00:00:00 Completed [facility] Influenza Virus Vaccine Quad IM 3+ YRS 2018-03-26 00:00:00 Completed [facility] Pneumococcal Polysaccharide, PPSV23 (PNEUMOVAX) 2018-03-26 00:00:00 Completed [facility] Influenza Virus Vaccine Quad IM 3+ YRS 2018-03-26 00:00:00 Completed [facility] Pneumococcal Polysaccharide, PPSV23 (PNEUMOVAX) 2018-03-26 00:00:00 Completed [facility] Influenza Virus Vaccine Quad IM 3+ YRS 2018-03-26 00:00:00 Completed [facility] Pneumococcal Polysaccharide, PPSV23 (PNEUMOVAX) [facility] Influ[facility] Vaccine Quad IM 3+ YRS Unknown Completed [facility] SARS-COV-2 COVID-19 PFIZER VACCINE Unknown Completed [facility] SARS-COV-2 COVID-19 PFIZER VACCINE Unknown Completed [facility] Pneumococcal Polysaccharide, PPSV23 (PNEUMOVAX) Unknown Completed [facility] Influenza Virus Vaccine Quad IM 3+ YRS Unknown Completed [facility] SARS-COV-2 COVID-19 PFIZER VACCINE Unknown Completed [facility] SARS-COV-2 COVID-19 PFIZER VACCINE Unknown Completed [facility] Pneumococcal Polysaccharide, PPSV23 (PNEUMOVAX) Unknown Completed [facility] Influenza Virus Vaccine Quad IM 3+ YRS Unknown Completed [facility] SARS-COV-2 COVID-19 PFIZER VACCINE Unknown Completed [facility] SARS-COV-2 COVID-19 PFIZER VACCINE Unknown Completed [facility] Pneumococcal Polysaccharide, PPSV23 (PNEUMOVAX) Unknown Completed [facility] Influenza Virus Vaccine Quad IM 3+ YRS Unknown Completed [facility] SARS-COV-2 COVID-19 PFIZER VACCINE Unknown Completed [facility] SARS-COV-2 COVID-19 PFIZER VACCINE Unknown Completed [facility] Pneumococcal Polysaccharide, PPSV23 (PNEUMOVAX) Unknown Completed [facility] Influenza Virus Vaccine Quad IM 3+ YRS Unknown Completed [facility] SARS-COV-2 COVID-19 PFIZER VACCINE Unknown Completed [facility] SARS-COV-2 COVID-19 PFIZER VACCINE Unknown Completed [facility] Pneumococcal Polysaccharide, PPSV23 (PNEUMOVAX) Unknown Completed [facility] Influenza Virus Vaccine Quad IM 3+ YRS Unknown Completed [facility] SARS-COV-2 COVID-19 PFIZER VACCINE Unknown Completed [facility] SARS-COV-2 COVID-19 PFIZER VACCINE Unknown Completed [facility] Pneumococcal Polysaccharide, PPSV23 (PNEUMOVAX) Unknown Completed [facility] Influenza Virus Vaccine Quad IM 3+ YRS Unknown Completed [facility] SARS-COV-2 COVID-19 PFIZER VACCINE Unknown Completed [facility] SARS-COV-2 COVID-19 PFIZER VACCINE Unknown Completed [facility] Pneumococcal Polysaccharide, PPSV23 (PNEUMOVAX) Unknown Completed [facility] Influenza Virus Vaccine Quad IM 3+ YRS Unknown Completed [facility] SARS-COV-2 COVID-19 PFIZER VACCINE Unknown Completed [facility] SARS-COV-2 COVID-19 PFIZER VACCINE Unknown Completed [facility] Vital Signs Vital Name Observation Time Observation Value Comments S ource Systolic blood pressure 2024-02-18 01:57:00 134 mm[Hg] [facility] Diastolic blood pressure 2024-02-18 01:57:00 94 mm[Hg] [facility] Body height 2024-02-18 01:57:00 162.6 cm [facility] Body weight 2024-02-18 01:57:00 79.379 kg [facility] BMI 2024-02-18 01:57:00 30.04 kg/m2 [facility] Heart rate 2024-02-18 01:53:00 110 /min [facility] Body temperature 2024-02-18 01:53:00 36.61 Debbie [facility] Respiratory rate 2024-02-18 01:53:00 24 /min [facility] Oxygen saturation in Arterial blood by Pulse oximetry 2024-02-18 01:53:00 93 /min [facility] Systolic blood pressure 2024-02-09 01:54:05 150 mm[Hg] [facility] Diastolic blood pressure 2024-02-09 01:54:05 91 mm[Hg] [facility] Heart rate 2024-02-09 01:54:05 87 /min [facility] Respiratory rate 2024-02-09 01:54:05 17 /min [facility] Oxygen saturation in Arterial blood by Pulse oximetry 2024-02-09 01:54:05 93 /min [facility] Body temperature 2024-02-09 01:45:00 36.67 Debbie [facility] Body height 2024-02-09 01:45:00 162.6 cm [facility] Body weight 2024-02-09 01:45:00 81.194 kg [facility] BMI 2024-02-09 01:45:00 30.73 kg/m2 [facility] Respiratory rate 2024-02-08 21:00:00 18 /min [facility] Oxygen saturation in Arterial blood by Pulse oximetry 2024-02-08 21:00:00 96 /min [facility] Systolic blood pressure 2024-02-08 20:27:00 164 mm[Hg] [facility] Diastolic blood pressure 2024-02-08 20:27:00 90 mm[Hg] [facility] Heart rate 2024-02-08 20:27:00 83 /min [facility] Body temperature 2024-02-08 19:12:00 36.83 [facility] Body height 2024-02-08 19:12:00 162.6 cm [facility] Body weight 2024-02-08 19:12:00 81.194 kg [facility] BMI 2024-02-08 19:12:00 30.73 kg/m2 [facility] Heart rate 2024-01-14 12:15:00 98 /min [facility] Body temperature 2024-01-14 12:15:00 36.56 Debbie [facility] Respiratory rate 2024-01-14 12:15:00 14 /min [facility] Oxygen saturation in Arterial blood by Pulse oximetry 2024-01-14 12:15:00 95 /min [facility] Systolic blood pressure 2024-01-14 12:00:00 140 mm[Hg] [facility] Diastolic blood pressure 2024-01-14 12:00:00 90 mm[Hg] [facility] Body height 2024-01-14 10:51:00 162.6 cm [facility] Body weight 2024-01-14 10:51:00 81.194 kg [facility] BMI 2024-01-14 10:51:00 30.73 kg/m2 [facility] Systolic blood pressure 2023-12-23 05:02:00 133 mm[Hg] [facility] Diastolic blood pressure 2023-12-23 05:02:00 84 mm[Hg] [facility] Heart rate 2023-12-23 05:02:00 78 /min [facility] Body temperature 2023-12-23 05:02:00 36.17 Debbie [facility] Respiratory rate 2023-12-23 05:02:00 17 /min [facility] Oxygen saturation in Arterial blood by Pulse oximetry 2023-12-23 05:02:00 91 /min [facility] Body height 2023-12-23 03:45:00 162.6 cm [facility] Body weight 2023-12-23 03:45:00 81.194 kg [facility] BMI 2023-12-23 03:45:00 30.73 kg/m2 [facility] Systolic blood pressure 2023-12-22 02:08:00 143 mm[Hg] [facility] Diastolic blood pressure 2023-12-22 02:08:00 92 mm[Hg] [facility] Heart rate 2023-12-22 02:08:00 81 /min [facility] Respiratory rate 2023-12-22 02:08:00 13 /min [facility] Oxygen saturation in Arterial blood by Pulse oximetry 2023-12-22 02:08:00 95 /min [facility] Body temperature 2023-12-22 01:33:00 36.72 Debbie [facility] Body height 2023-12-22 01:33:00 162.6 cm [facility] Body weight 2023-12-22 01:33:00 81.239 kg [facility] BMI 2023-12-22 01:33:00 30.74 kg/m2 [facility] Systolic blood pressure 2023-11-11 02:00:00 127 mm[Hg] [facility] Diastolic blood pressure 2023-11-11 02:00:00 87 mm[Hg] [facility] Heart rate 2023-11-11 02:00:00 79 /min [facility] Respiratory rate 2023-11-11 02:00:00 20 /min [facility] Oxygen saturation in Arterial blood by Pulse oximetry 2023-11-11 02:00:00 98 /min [facility] Body temperature 2023-11-11 01:31:00 36.28 Debbie [facility] Body height 2023-11-11 01:31:00 162.6 cm [facility] Body weight 2023-11-11 01:31:00 79.379 kg [facility] BMI 2023-11-11 01:31:00 30.04 kg/m2 [facility] Systolic blood pressure 2023-10-27 06:54:00 133 mm[Hg] [facility] Diastolic blood pressure 2023-10-27 06:54:00 94 mm[Hg] [facility] Heart rate 2023-10-27 06:54:00 95 /min Un[facility] Body temperature 2023-10-27 06:54:00 36.44 Debbie [facility] Respiratory rate 2023-10-27 06:54:00 22 /min [facility] Body height 2023-10-27 06:54:00 162.6 cm [facility] Body weight 2023-10-27 06:54:00 78.472 kg [facility] BMI 2023-10-27 06:54:00 29.70 kg/m2 [facility] Oxygen saturation in Arterial blood by Pulse oximetry 2023-10-27 06:54:00 94 /min [facility] Systolic blood pressure 2022-10-14 19:43:00 111 mm[Hg] [facility] Diastolic blood pressure 2022-10-14 19:43:00 74 mm[Hg] [facility] Heart rate 2022-10-14 19:43:00 98 /min [facility] Body temperature 2022-10-14 19:43:00 36.39 Debbie [facility] Respiratory rate 2022-10-14 19:43:00 22 /min [facility] Oxygen saturation in Arterial blood by Pulse oximetry 2022-10-14 19:43:00 94 /min [facility] Body height 2022-10-14 16:13:00 162.6 cm [facility] Body weight 2022-10-14 16:13:00 81.647 kg [facility] BMI 2022-10-14 16:13:00 30.90 kg/m2 [facility] Systolic blood pressure 2022-03-12 10:13:00 119 mm[Hg] [facility] Diastolic blood pressure 2022-03-12 10:13:00 75 mm[Hg] [facility] Heart rate 2022-03-12 10:13:00 105 /min [facility] Body temperature 2022-03-12 10:13:00 37.28 Debbie [facility] Respiratory rate 2022-03-12 10:13:00 19 /min [facility] Body height 2022-03-12 10:13:00 162.6 cm [facility] Body weight 2022-03-12 10:13:00 99.791 kg [facility] BMI 2022-03-12 10:13:00 37.76 kg/m2 [facility] Oxygen saturation in Arterial blood by Pulse oximetry 2022-03-12 10:13:00 96 /min [facility] Systolic blood pressure 2022-02-20 11:57:00 155 mm[Hg] [facility] Diastolic blood pressure 2022-02-20 11:57:00 88 mm[Hg] [facility] Heart rate 2022-02-20 11:57:00 105 /min [facility] Respiratory rate 2022-02-20 11:57:00 18 /min [facility] Oxygen saturation in Arterial blood by Pulse oximetry 2022-02-20 11:57:00 100 /min [facility] Body temperature 2022-02-20 09:25:00 37 Debbie [facility] Body height 2022-02-20 09:25:00 162.6 cm [facility] Body weight 2022-02-20 09:25:00 96.163 kg [facility] BMI 2022-02-20 09:25:00 36.39 kg/m2 [facility] Procedures Procedure Date / Time Performed Performing Clinician Source AC PANEL 20 + LACTIC ACID 2024-02-08 20:47:00 Christina Villarreal [facility] XR CHEST 1 VW 2024-02-08 19:47:00 Christina Villarreal [facility] URINALYSIS 2024-02-08 19:36:00 [facility] MAGNESIUM 2024-02-08 19:25:00 [facility] TROPONIN I 2024-02-08 19:25:00 Christina Villarreal [facility] COMP. METABOLIC PANEL ([id number]) 2024-02-08 19:25:00 Christina Villarreal [facility] ETHANOL 2024-02-08 19:25:00 [facility] CBC WITH DIFF 2024-02-08 19:25:00 Christina Villarreal [facility] N-TERMINAL PRO-BNP 2024-02-08 19:25:00 Christina Villarreal [facility] EKG-12 LEAD 2024-01-14 12:00:51 [facility] LIPASE 2024-01-14 11:11:00 [facility] TROPONIN I 2024-01-14 11:11:00 [facility] COMP. METABOLIC PANEL ([id number]) 2024-01-14 11:11:00 Jac Navarro [facility] ETHANOL 2024-01-14 11:11:00 Jac Navarro [facility] CBC WITH DIFF 2024-01-14 11:11:00 Jac Navarro [facility] N-TERMINAL PRO-BNP 2024-01-14 11:11:00 Jac Navarro [facility] COVID-19 (ID NOW RAPID TESTING) 2024-01-14 11:11:00 Jac Navarro [facility] CONSENT/REFUSAL FOR DIAGNOSIS AND TREATMENT 2024-01-14 10:44:32 Doctor Unassigned, [facility] LIPASE 2023-12-23 04:17:00 Tyler Rowe [facility] COMP. METABOLIC PANEL (04730) 2023-12-23 04:17:00 Tyler Rowe [facility] CBC WITH DIFF 2023-12-23 04:17:00 [facility] 2023-12-23 04:17:00 Tyler Rowe [facility] CONSENT/REFUSAL FOR DIAGNOSIS AND TREATMENT 2023-12-23 03:40:32 Doctor Unassigned, [facility] CT ABDOMEN PELVIS W CONTRAST 2023-12-22 02:31:05 Melinda Maciel [facility] LIPASE 2023-12-22 01:58:00 Melinda Maciel [facility] COMP. METABOLIC PANEL ([id number]) 2023-12-22 01:58:00 Melinda Maciel [facility] ETHANOL 2023-12-22 01:58:00 Melinda Maciel [facility] CBC WITH DIFF 2023-12-22 01:58:00 Melinda Maciel [facility] PROTHROMBIN TIME / INR 2023-12-22 01:58:00 Wali Maciel [facility] URINALYSIS 2023-12-22 01:58:00 Melinda Maciel [facility] CONSENT/REFUSAL FOR DIAGNOSIS AND TREATMENT 2023-12-22 01:19:14 Doctor Unassigned, [facility] NOTICE OF PRIVACY PRACTICES 2023-11-11 01:24:24 Doctor Unassigned, [facility] CONSENT/REFUSAL FOR DIAGNOSIS AND TREATMENT 2023-11-11 01:23:54 Doctor Unassigned, [facility] COVID-19 (ID NOW RAPID TESTING) 2023-10-27 07:09:00 Jac Navarro [facility] NOTICE OF PRIVACY PRACTICES 2023-10-27 06:49:48 Doctor Unassigned, [facility] CONSENT/REFUSAL FOR DIAGNOSIS AND TREATMENT 2023-10-27 06:47:40 Doctor Unassigned, [facility] CT ABDOMEN PELVIS W CONTRAST 2022-10-14 17:33:00 Melinda Maciel [facility] XR CHEST 1 2022-10-14 17:10:37 Melinda Maciel [facility] TROPONIN I 2022-10-14 16:37:00 Mel[facility] Mac[facility] COMP. METABOLIC PANEL ([id number]) 2022-10-14 16:37[facility]00 [facility] 2022-10-14 16:37:00 Melinda Maciel [facility] PROTHROMBIN TIME / INR 2022-10-14 16:37:00 Wali Maciel [facility] URINALYSIS 2022-10-14 16:37:00 Melinda Maciel [facility] N-TERMINAL PRO-BNP 2022-10-14 16:37:00 [facility]REFUSAL FOR DIAGNOSIS AND TREATMENT 2022-10-14 15:56:36 Doctor Unassigned, [facility] CONSENT/REFUSAL FOR DIAGNOSIS AND TREATMENT 2022-03-12 10:03:12 Doctor Unassigned, [facility] XR CHEST 1 2022-02-20 09:59:00 Christy Holliday [facility] LIPASE 2022-02-20 09:30:00 Christy Holliday [facility] TROPONIN I 2022-02-20 09:30:00 Christy Holliday [facility] COMP. METABOLIC PANEL ([id number]) 2022-02-20 09:30:00 Christy Holliday [facility] CBC WITH DIFF 2022-02-20 09:30:00 Christy Holliday [facility] N-TERMINAL PRO-BNP 2022-02-20 09:30:00 Christy Holliday [facility] NOTICE OF PRIVACY PRACTICES 2022-02-20 09:15:02 Doctor Unassigned, [facility] CONSENT/REFUSAL FOR DIAGNOSIS AND TREATMENT 2022-02-20 09:14:47 Doctor Unassigned, [facility] Encounters Start Date/Time End Date/Time Encounter Type Admission Type Attending [facility] Care Department Encounter ID Source 2024-03-15 08:30:00 2024-03-15 08:30:00 Outpatient WENDY BROWNLEE [id number] Maria Elena Alcantara 2024-02-17 20:58:00 2024-02-17 21:44:00 Emergency X PEG CAMP [facility] ERT [id number] [facility] 2024-02-17 20:58:00 2024-02-17 21:44:00 Emergency Peg Camp [facility] ..840.114 350.1.13.10 4.2.7.2.686 [id number] [facility] 2024-02-08 20:38:00 2024-02-08 21:40:00 Emergency X DEMETRIA DAVENPORT [facility] ERT [id number] [facility] 2024-02-08 20:38:00 2024-02-08 21:40:00 Emergency AuDemetria breen [facility] ..840.114 350.1.13.10 4.2.7.2.686 [id number] [facility] 2024-02-08 14:08:00 2024-02-08 17:06:00 Emergency Christina Villarreal [facility] 1.2.840.114 350.1.13.10 4.2.7.2.686 [id number] [facility] 2024-01-14 04:46:00 2024-01-14 06:23:00 Emergency X ROBERTO NAVARRONT [facility] ERT [id number] [facility] 2024-01-14 04:46:00 2024-01-14 06:23:00 Emergency Roberto Navarront J [facility] 1.2.840.114 350.1.13.10 4.2.7.2.686 [id number] [facility] 2023-12-22 21:51:00 2023-12-22 23:13:00 Emergency X TREV ROWERADHA [facility] ERT [id number] [facility] 2023-12-22 21:51:00 2023-12-22 23:13:00 Emergency Tyler Rowe [facility] 1.2.840.114 350.1.13.10 4.2.7.2.686 [id number] [facility] 2023-12-21 19:36:00 2023-12-21 21:52:00 Emergency X MACIEL MELINDA [facility] ERT [id number] [facility] 2023-12-21 19:36:00 2023-12-21 21:52:00 Emergency Melinda Maciel [facility] 1.2.840.114 350.1.13.10 4.2.7.2.686 [id number] [id number] [facility] 2023-11-10 19:29:00 2023-11-10 20:14:00 Emergency X YARIMA, WAKILI [facility] ERT [id number] [facility] 2023-11-10 19:29:00 2023-11-10 20:14:00 Emergency Chirsty Holliday [facility] 1.2.840.114 350.1.13.10 4.2.7.2.686 [id number] [facility] 2023-10-27 00:49:00 2023-10-27 01:41:00 Emergency X JAC NAVARRO [facility] ERT [id number] [facility] 2023-10-27 00:49:00 2023-10-27 01:41:00 Emergency Jac Navarro [facility] 1..840.114 350.1.13.10 4.2.7.2.686 [id number] [facility] 2023-07-15 00:00:00 2023-07-15 00:00:00 Outpatient DARIEN LOBO [id number] [facility] 2023-06-16 11:30:00 2023-06-16 11:30:00 Outpatient DARIEN LOBO [id number] [facility] 2023-05-18 00:00:00 2023-05-18 00:00:00 Outpatient MARIA ELENA CHAN [id number] [facility] 2022-10-14 10:07:00 2022-10-14 14:39:00 Emergency X MELINDA MACIEL [facility] ERT [id number] [facility] 2022-10-14 10:07:00 2022-10-14 14:39:00 Emergency Melinda [facility] 1.2.840.114 350.1.13.10 4.2.7.2.686 [id number] [facility] 2022-03-12 05:15:00 2022-03-12 06:41:00 Emergency X CHRISTY HOLLIDAY [facility] ERT [id number] [facility] 2022-03-12 05:15:00 2022-03-12 06:41:00 Emergency Christy Holliday [facility] 1.2.840.114 350.1.13.10 4.2.7.2.686 [id number] [facility] 2022-02-20 04:17:00 2022-02-20 07:16:00 Emergency X CHRISTY HOLLIDAY [facility] ERT [id number] [facility] 2022-02-20 04:17:00 2022-02-20 07:16:00 Emergency Mg Nvtera [facility] 1.2.840.114 350.1.13.10 4.2.7.2.686 [id number] [facility] 2021-02-03 11:10:00 2021-02-03 11:10:00 Outpatient R DENISE SUNG [facility] [id number] [facility] 2021-01-13 11:20:00 2021-01-13 11:20:00 Outpatient [facility] [id number] [facility] 2020-11-10 08:20:00 2020-11-10 08:20:00 Outpatient KARLEY ESTRADA [facility] [id number] [facility] Results Test Description Test Time Test Comments Results Result Co mments Source [facility] + Lactic [id number] 20:52:47* Test Item Value Reference Range Interpretation Comme nts PH (test code = 2) 7.39 7.35-7.45 PCO2 (test code = 4169313303) 42 35-45 PO2 (test code = 6766660163) 76 80-100 L HCO3 (test code = 7789027759) 25 22-26 BE (test code = 1520659525) -0.1 -3.0-3.0 THB (test code = 2908591264) 14.3 g/dL 13.5-18.0 %O2HB (test code = 9122168091) 85.8 % 94.0-99.0 L %COHB ART (test code = 1298744173) 9.0 % 0.0-1.5 H %METHB ART (test code = 1827830799) 0.3 % 0.4-1.5 L VOL%O2 ART (test code = 1894090564) 17.3 % 15.0-23.0 NA (test code = 4612278711) 140 mmol/L 135-145 K+ (test code = 3436477909) 4.1 mmol/L 3.5-5.0 AC CA IONZ (test code = 8360786011) 4.50 mg/dL 4.50-5.30 GLUCOSE (test code = 8993654696) 105 mg/dL 70-110 LACTIC ACID (test code = 8894835976) 2.60 mmol/L 0.50-2.20 H Lab Interpretation (test cod e = 07211-8) [facility]normal [facility] [id number] 20:34:14* Test Item Value Reference Range Interpretation Comme nts TROPONIN I (test code = 4725256762) 0.008 ng/mL <=0.034 LOUISE (test code = [...] of biotin. Lab Interpretation (test code = 64246-7) Normal [facility] Urc-[id number] 20:31:35* Test Item Value Reference Range Interpretation Comme nts NT-proBNP (test code = 37521-5) 188 pg/mL <=125 LOUISE (test code = LOUISE) Result Indeterminate-Consid er causes of NT-proBNP elevation other than Heart failure such as acute coronary syndrome, pulmonary embolism, pulmonary hypertension, sepsis, stroke, and renal dysfunction. Lab Interpretation (test code = 88665-8) [facility]normal [facility] Met[facility] Panel (24468)2024-02-08 20:21:10* Test Item Value Reference Range Interpretation Comme nts NA (test code = 9595427777) 135 mmol/L 135-145 K (test code = 8470478974) 4.5 mmol/L 3.5-5.0 CL (test code = 5022290196) 100 mmol/L 98-108 CO2 TOTAL (test code = 4207204499) 22 mmol/L 23-31 L AGAP (test code = 5090425475) 13 2-16 BUN (test code = 8553198941) 8 mg/dL 7-23 GLUCOSE (test code = 2664242765) 97 mg/dL 70-110 CREATININE (test code = 2160-0) 0.65 mg/dL 0.60-1.25 TOTAL BILI (test code = 8777218598) 0.4 mg/dL 0.1-1.1 CALCIUM (test code = 4855707949) 9.4 mg/dL 8.6-10.6 T PROTEIN (test code = 0557168610) 8.2 g/dL 6.3-8.2 ALBUMIN (test code = 0357136405) 4.7 g/dL 3.5-5.0 ALK PHOS (test code = 9194926074) 76 U/L 34-122 ALTv (test code = 1742-6) 33 U/L 5-50 AST(SGOT) (test code = 1645820305) 54 U/L 13-40 H eGFR (test code = 72582-2) 111.3 mL/min/1.73m2 CKD-EPI eGFR (2020). Assuming creatinine has been stable day-to-day for at least three months, the eGFR indicates Category G1 (>= 90 mL/min/1.73 m2) Lab Interpretation (test code = 99272-3) [facility] 20:21:10* Test Item Value Reference Range Interpretation Comme nts MAGNESIUM (test code = 0051046330) 2.1 mg/dL 1.7-2.4 Lab Interpretation (test cod e = 55768-3) [facility] 1 [id number] 20:07:21EXAM: XR CHEST 1 VW COMPARISON: 01/14/2024 HISTORY: sob FINDINGS: Lungs: Slightly hyperexpanded lungswith subtle progression of interstitialprominence. Trace pleural effusions could be present. Heart/Mediastinum: Stable cardiomegaly. Bones and soft tissues: No osseous abnormality is visualized.[facility] Cbc with [id number] 20:04:26* Test Item Value Reference Range Interpretation [...] 33.8 g/dL 31.2-35.0 RDW-SD (test code = 97592-3) 50.5 fL 38.5-51.6 RDW-CV (test code = 788-0) 14.3 % 12.1-15.4 PLT (test code = 777-3) 206 150-328 MPV (test code = 15598-2) 9.1 fL 9.8-13.0 L NRBC/100 WBC (test code = 9605513634) 0.0 0.0-10.0 NRBC x10^3 (test code = 5164662380) See_Comment [Automated [employer]] The system which generated this result transmitted reference range: 10*3/?L. The reference range was not used to interpret this result as normal/abnormal. GRAN MAT (NEUT) % (test code = 770-8) 81.0 % IMM GRAN % (test code = 1084794621) 1.20 % LYMPH % (test code = 736-9) 10.9 % MONO % (test code = 5905-5) 6.8 % EOS % (test code = 713-8) 0.0 % BASO % (test code = 706-2) 0.1 % GRAN MAT x10^3(ANC) (test code = 4890432856) 9.31 10*3/uL 1.99-6.95 H IMM GRAN x10^3 (test code = 4386333518) 0.14 10*3/uL 0.00-0.06 H LYMPH x10^3 (test code = 731-0) 1.25 10*3/uL 1.09-3.23 MONO x10^3 (test code = 742-7) 0.78 10*3/uL 0.36-1.02 EOS x10^3 (test code = 711-2) 0.06-0.53 L BASO x10^3 (test code = 704-7) 0.01-0.09 Lab Interpretation (test code = 53553-6) [facility] PANEL (47739)2023-12-23 04:53:26* Test Item Value Reference Range Interpretation Comme nts NA (test code = 8356682912) 135 mmol/L 135-145 K (test code = 1692479535) 3.2 mmol/L 3.5-5.0 L CL (test code = 9940561213) 104 mmol/L 98-108 CO2 TOTAL (test code = 2964943923) 23 mmol/L 23-31 AGAP (test code = 6425849666) 8 2-16 BUN (test code = 7170220043) 11 mg/dL 7-23 GLUCOSE (test code = 8219977868) 82 mg/dL 70-110 CREATININE (test code = 2160-0) 0.64 mg/dL 0.60-1.25 TOTAL BILI (test code = 3973211064) 0.5 mg/dL 0.1-1.1 CALCIUM (test code = 8571403692) 8.8 mg/dL 8.6-10.6 T PROTEIN (test code = 8172881174) 6.7 g/dL 6.3-8.2 ALBUMIN (test code = 1671710684) 4.1 g/dL 3.5-5.0 ALK PHOS (test code = 3265640737) 46 U/L 34-122 ALTv (test code = 1742-6) 21 U/L 5-50 AST(SGOT) (test code = 9251556271) 43 U/L 13-40 H eGFR (test code = 29282-3) 111.8 mL/min/1.73m2 CKD-EPI eGFR (2020). Assuming creatinine has been stable day-to-day for at least three months, the eGFR indicates Category G1 (>= 90 mL/min/1.73 m2) Lab Interpretation (test code = 63439-6) [facility]14 04:53:26* Test Item Value Reference Range Interpretation Comme nts LIPASE (test code = 3859868283) 105 U/L 0-220 Lab Interpretation (test cod e = 85123-3) Normal [facility] WITH [id number] 04:34:24* Test Item Value Reference Range Interpretation [...] 33.0 g/dL 31.2-35.0 RDW-SD (test code = 02061-2) 50.9 fL 38.5-51.6 RDW-CV (test code = 788-0) 13.7 % 12.1-15.4 PLT (test code = 777-3) 232 150-328 MPV (test code = 44541-2) 8.7 fL 9.8-13.0 L NRBC/100 WBC (test code = 5063253476) 0.0 0.0-10.0 NRBC x10^3 (test code = 8512944016) See_Comment [Automated messa ge] The system which generated this result transmitted reference range: 10*3/?L. The reference range was not used to interpret this result as normal/abnormal. GRAN MAT (NEUT) % (test code = 770-8) 58.8 % IMM GRAN % (test code = 3263883556) 0.90 % LYMPH % (test code = 736-9) 27.8 % MONO % (test code = 5905-5) 10.5 % EOS % (test code = 713-8) 1.3 % BASO % (test code = 706-2) 0.7 % GRAN MAT x10^3(ANC) (test code = 4745407533) 5.68 10*3/uL 1.99-6.95 IMM GRAN x10^3 (test code = 4159024798) 0.09 10*3/uL 0.00-0.06 H LYMPH x10^3 (test code = 731-0) 2.69 10*3/uL 1.09-3.23 MONO x10^3 (test code = 742-7) 1.02 10*3/uL 0.36-1.02 EOS x10^3 (test code = 711-2) 0.13 10*3/uL 0.06-0.53 BASO x10^3 (test code = 704-7) 0.07 10*3/uL 0.01-0.09 Lab Interpretation (test code = 12755-8) [facility] W [id number] 03:32:43Exam: CT Abdomen and Pelvis With Contrast, [...] abnormality.Soft tissues: Small fat-containing inguinal hernias.[facility]24-[facility] 02:32:24* Test Item Value Reference Range Interpretation Comme nts ALCOHOL (test code = 9030170661) 117 mg/dL LOUISE (test code = LOUISE) <10 [id number] Toxic>100 Depression of LOWER IN SUPERVISOR>400 Fatalities Reported [facility] Metabolic Panel (50651)2023-12-22 02:31:43* Test Item Value Reference Range Interpretation Comme nts NA (test code = 1218703479) 133 mmol/L 135-145 L K (test code = 2214967120) 3.3 mmol/L 3.5-5.0 L CL (test code = 0620344826) 102 mmol/L 98-108 CO2 TOTAL (test code = 4514570830) 25 mmol/L 23-31 AGAP (test code = 0906143909) 6 2-16 BUN (test code = 7981673414) 11 mg/dL 7-23 GLUCOSE (test code = 9925618491) 75 mg/dL 70-110 CREATININE (test code = 3291105475) 0.51 mg/dL 0.60-1.25 L TOTAL BILI (test code = 8347372447) 0.5 mg/dL 0.1-1.1 CALCIUM (test code = 1668887678) 8.9 mg/dL 8.6-10.6 T PROTEIN (test code = 6687996857) 7.2 g/dL 6.3-8.2 ALBUMIN (test code = 1806842185) 4.5 g/dL 3.5-5.0 ALK PHOS (test code = 1650610624) 46 U/L 34-122 ALTv (test code = 1742-6) 15 U/L 5-50 AST(SGOT) (test code = 9754856082) 24 U/L 13-40 eGFR (test code = 76174-4) 119.7 mL/min/1.73m2 CKD-EPI eGFR (2020). Assuming creatinine has been stable day-to-day for at least three months, the eGFR indicates Category G1 (>= 90 mL/min/1.73 m2) Lab Interpretation (test code = 11862-1) [facility]24-[facility] 02:31:43* Test Item Value Reference Range Interpretation Comme nts LIPASE (test code = 0270954151) 121 U/L 0-220 Lab Interpretation (test cod e = 68670-9) [facility] / [id number] 02:21:02* Test Item Value Reference Range Interpretation Comme nts PROTIME PATIENT (test code = 5964-2) 10.5 10.1-12.6 INR (test code = 6301-6) 0.9 Normal INR <1.1; Warfarin Therapeutic range 2.0 to 3.0 or 2.5 to 3.5, depending upon the indications. Lab Interpretation (test code = 29899-6) [facility] [id number] 02:14:04* Test Item Value Reference Range Interpretation [...] 34.0 g/dL 31.2-35.0 RDW-SD (test code = 90809-0) 49.1 fL 38.5-51.6 RDW-CV (test code = 788-0) 13.5 % 12.1-15.4 PLT (test code = 777-3) 260 150-328 MPV (test code = 03185-7) 8.7 fL 9.8-13.0 L NRBC/100 WBC (test code = 6508970831) 0.0 0.0-10.0 NRBC x10^3 (test code = 9535590036) See_Comment [Automated messa ge] The system which generated this result transmitted reference range: 10*3/?L. The reference range was not used to interpret this result as normal/abnormal. GRAN MAT (NEUT) % (test code = 770-8) 64.3 % IMM GRAN % (test code = 8509117884) 0.90 % LYMPH % (test code = 736-9) 24.2 % MONO % (test code = 5905-5) 9.1 % EOS % (test code = 713-8) 0.7 % BASO % (test code = 706-2) 0.8 % GRAN MAT x10^3(ANC) (test code = 2721492157) 8.73 10*3/uL 1.99-6.95 H IMM GRAN x10^3 (test code = 7532178953) 0.12 10*3/uL 0.00-0.06 H LYMPH x10^3 (test code = 731-0) 3.28 10*3/uL 1.09-3.23 H MONO x10^3 (test code = 742-7) 1.23 10*3/uL 0.36-1.02 H EOS x10^3 (test code = 711-2) 0.10 10*3/uL 0.06-0.53 BASO x10^3 (test code = 704-7) 0.11 10*3/uL 0.01-0.09 H Lab Interpretation (test code = 03182-5) Abnormal [facility] D0734-58-22 10:16:22* Test Item Value Reference Range Interpretation Comments TROPONIN I (test code = 8144358767) 0.007 ng/mL See_Comment [Automated message] The system [...] of biotin. Lab Interpretation (test code = 72635-9) [facility]-JNB9315[facility]68-14 10:13:01* Test Item Value Reference Range Interpretation Comme nts NT-proBNP (test code = 6345738893) 52 pg/mL See_Comment [Automated message] The system which generated this result transmitted reference range: <=125. The reference range was not used to interpret this result as normal/abnormal. LOUISE (test code = LOUISE) Biotin has been reported to cause a negative bias, interpret results relative to patient's use of biotin. Lab Interpretation (test code = 71056-4) [facility] (25391)2022-02-20 10:04:02* Test Item Value Reference Range Interpretation Comme nts NA (test code = 9303332193) 137 mmol/L 135-145 K (test code = 7186153805) 3.6 mmol/L 3.5-5.0 CL (test code = 6290670771) 99 mmol/L 98-108 CO2 TOTAL (test code = 5810635222) 25 mmol/L 23-31 AGAP (test code = 5613484665) 2-16 BUN (test code = 3863148581) 6 mg/dL 7-23 L GLUCOSE (test code = 2511881914) 88 mg/dL 70-110 CREATININE (test code = 6461390066) 0.55 mg/dL 0.60-1.25 L TOTAL BILI (test code = 9152277635) 0.8 mg/dL 0.1-1.1 CALCIUM (test code = 7290793378) 8.9 mg/dL 8.6-10.6 T PROTEIN (test code = 5055585749) 7.5 g/dL 6.3-8.2 ALBUMIN (test code = 6181821827) 4.8 g/dL 3.5-5.0 ALK PHOS (test code = 4087016632) 113 U/L 34-122 ALTv (test code = 1742-6) 84 U/L 5-50 H AST(SGOT) (test code = 3142897145) 107 U/L 13-40 H eGFR (test code = 8148583514) mL/min/1.73m2 LOUISE (test code = LOUISE) Association [...] imaging tests). Lab Interpretation (test code = 79076-2) [facility] SZRWW4994-44-45 10:03:21* Test Item Value Reference Range Interpretation Comme nts LIPASE (test code = 4339026629) 193 U/L 0-220 Lab Interpretation (test cod e = 66559-7) Normal [facility] WITH NMWX0401-04-05 09:39:17* Test Item Value Reference Range Interpretation [...] g/dL 31.2-35.0 H RDW-SD (test code = 11015-4) 44.4 fL 38.5-51.6 RDW-CV (test code = 788-0) 11.9 % 12.1-15.4 L PLT (test code = 777-3) See_Comment [Automated messa ge] The system which generated this result transmitted reference range: 150 - 328 10*3/?L. The reference range was not used to interpret this result as normal/abnormal. MPV (test code = 91322-9) 9.2 fL 9.8-13.0 L NRBC/100 WBC (test code = 9353491651) See_Comment [Automated [employer] ssage] The system which generated this result transmitted reference range: 0.0 - 10.0 /100 WBCs. The reference range was not used to interpret this result as normal/abnormal. NRBC x10^3 (test code = 4729388821) <0.01 See_Comment [Automated messa ge] The system which generated this result transmitted reference range: 10*3/?L. The reference range was not used to interpret this result as normal/abnormal. GRAN MAT (NEUT) % (test code = 770-8) 69.9 % IMM GRAN % (test code = 4134972471) 1.50 % LYMPH % (test code = 736-9) 18.9 % MONO % (test code = 5905-5) 7.0 % EOS % (test code = 713-8) 1.9 % BASO % (test code = 706-2) 0.8 % GRAN MAT x10^3(ANC) (test code = 8028768951) 7.15 10*3/uL 1.99-6.95 H IMM GRAN x10^3 (test code = 0422721925) 0.15 10*3/uL 0.00-0.06 H LYMPH x10^3 (test code = 731-0) 1.93 10*3/uL 1.09-3.23 MONO x10^3 (test code = 742-7) 0.72 10*3/uL 0.36-1.02 EOS x10^3 (test code = 711-2) 0.19 10*3/uL 0.06-0.53 BASO x10^3 (test code = 704-7) 0.08 10*3/uL 0.01-0.09 Lab Interpretation (test code = 10834-2) Abnormal [facility] Notes Date/Time Note Provider Source 2024-02-17 21:43:52 dyT3POXMmWhIVcprmXUgZzbcfMWpCNe5eKy Ecg7lcHtfc0UYeCYPVjO6lxHvmPgG6225-1 02-16T21:43:52 No answer in lobby. 82198-9Ozqtavhgk department IvtoWT1296-66-36V47:44:07[facility] NoteTXT1.2.840.239572.1.13.104.2.7. 2.650242|[id number] for patient ampg76356-1LmqsTTKRZOUAGFLCtdipluwl C-CDA narrative uhgs695994373Cgijkx J Hoot RN[id number] 3IVCUDOOQMULIGKAPBWZJCC3812-18-18W9 1:44:071.2.840.850273.1.72.3.15|1.2 .840.708296.1.13.104.2.7.2.727879_2 [id number] Angy Rossi Yue MACHUCA [facility] 2024-02-17 21:42:10 HhOyNkqVzFb2dTZ1K0M1KgFhts6m3QlJZhw D1uEF2fd4RaZ1m36mjurUYw4wzFWM8422-0 02-16T21:42:10 Pt's blood pressure cuff and pulse ox found lying on chair. Called for patient in lobby 2 times, no answer. No one in lobby. 42719-7Sugxljoot department JkgaRE5555-98-72V20:44:10Emergency department NoteTXT1.2.840.156784.1.13.104.2.7. 2.330980|[id number] for patient zqnd83685-1CgpaZFTUOZIWLLIVkctyzmum C-CDA narrative pmil492035905Mqjtp A. Campbell RN[id number] 6YCRZZGUFLFIHVXWTUKVFKN4557-31-70S0 1:44:101.2.840.516697.1.72.3.15|1.2 .840.087529.1.13.104.2.7.2.727879_2 [id number] Sierra Samaniego RN [facility] 2024-02-17 21:41:09 A2ZICRGK+kZcy7Aw6wucnAmgcGvBKFrm+IW tUSc4n68KKvw2q2FNEXbOaZ2WGda69559-2 1:41:09 Pt not in lobby or in room. No answer in lobby. [address]-4Cuoaunaoi[address] ZidsVP8509-12-86W58:41:40[facility] NoteTXT1.2.840.388216.1.13.104.2.7. 2.705884|[id number] for patient jezt33802-5IuukXQBUHPAGKDMShkwvltdd C-CDA narrative Sinimanes[id number] 0EIXRZSYFMCVDNPQRGJFZRY5591-55-79T3 1:41:401.2.840.256705.1.72.3.15|1.2 .840.698019.1.13.104.2.7.2.727879_2 [id number] [facility] 2024-02-17 21:14:29 FQx3Oe8fGPLA2T46PT0Xkqv4GcUPLP8zIbx Q+FIVjD8EMbTqS8vwR6gBzy/QGSkh3290-1 1:14:29 Pt not in FT- and no answer in lobby. [address]-4Ofougyrjj[address] MusqMF7650-47-05R86:15:32[facility] NoteTXT1.2.840.232688.1.13.104.2.7. 2.955769|[id number] for patient cemg61455-9VqpiJYJQSGBEYHZFceagouza C-CDA narrative [id number] 2KIWTILTPJSPRKVFLHAXNOM7708-21-33H5 1:15:321.2.840.330905.1.72.3.15|1.2 .840.737824.1.13.104.2.7.2.727879_2 [id number] [facility] 2024-02-17 20:48:50 8zN84gAcQGiZa4KYMFetnObrF5duRHA7D0X EPr6KfotEu4RELE/JJ1/xo9HAJU7u6418-7 02-16T20:48:50 Pt arrives ambulatory to ED c/o SOB, right upper abdominal pain, and left leg and hip pain. Pt states that he has been on prednisone for about 5 yrs which had given him osteoporosis which is causing his leg pain. Reports hx of COPD, o2 is generally @ 91 he says. 29514-5Dhqusrjoe department Triage rlxlTP3377-30-13O43:53:54[facility] Triage noteTXT1.2.840.475501.1.13.104.2.7. 2.950583|7897797603BRUuodoknjj for patient crbm96833-9Fpobxjbki department NoteLNNARRATIVEFormatted C-CDA narrative kzgd653975890Oxeejr L Williams RN[address] XzzkHmnkgcbxwTjtcbagzxJFQJ170921368 6HOPCYPGZMHIJGNITLOBZVC8491-81-90R4 0:53:541.2.840.342779.1.72.3.15|1.2 .840.501946.1.13.104.2.7.2.727879_2 [id number] Leah Lizama RN [facility] 2024-02-08 21:37:56 JEjxYpPC20cou6bmqoFxmlL41J+ZlkfFHgJ le/JYk2ID6MKIB6+V70V+vj6T3+jc3877-2 02-07T21:37:56 Pt left AMA 30712-9Zpsicqkam department PzxyUP5896-94-31B30:38:11[facility] NoteTXT1.2.840.518728.1.13.104.2.7. 2.793171|6573415134CZSeqeetjcb for patient ywhl23755-9MgssCRSZTBYJCOGOnnzjzjip C-CDA narrative yqzg988391346Eqprv M Martinez RN[address] MqceTe[id number] 9NJKPENKPPJCOWXXESTHXPI2322-24-21L3 1:38:111.2.840.663155.1.72.3.15|1.2 .840.702483.1.13.104.2.7.2.727879_2 [id number] Kylie Foster RN [facility] 2024-02-08 21:32:00 R137xKknWY/LgEOrnEZDchpmnjIEZA6PaiS 9g/I85WhToAusFQ0PrYXHKXQ6l8kY8683-3 02-07T21:32:00 Patient leaving AMA after self removing [...] ambulatory with steady [place], [place] [address]-2Zlkzfoiaf department CizrJQ4752-01-06U27:40:32[facility] NoteTXT1.2.840.044001.1.13.104.2.7. 2.790335|[id number] for patient nscm80101-2AhuuXWKPTLRCEWVOpzlmphyx C-CDA narrative text[id number] 6HOZUROVAEXQAFUGMAIVPGH3807-41-49I6 1:40:321.2.840.959177.1.72.3.15|1.2 .840.339183.1.13.104.2.7.2.727879_2 [id number] [facility] 2024-02-08 20:54:38 bR35AdV+jW1Zt4eU2dnVYwCg/bCPCdxwEFA VcpMxafYWxlhJQOORvm4Vi8Fw1Umx5978-9 02-07T20:54:38 Pt states he uses O2 at home, portable O2 is broken 71669-9Cebidvnpq department MxrzNA3786-36-70J39:55:13[facility] NoteTXT1.2.840.328853.1.13.104.2.7. 2.550870|[id number] for patient nftf39433-8GjmmHRTNUQWSPASXjozttzrv C-CDA narrative text[id number] 9EGBQZPHTHIPIJICYLXPYNX7984-82-53X9 0:55:131.2.840.450962.1.72.3.15|1.2 .840.479745.1.13.104.2.7.2.727879_2 [id number] [facility] 2024-02-08 20:51:11 el/w2YTNZ+wOzlVbhTxwrLou30YT/x7DhYW 39svBk6uKh5kszkT4pvUkYj+53rNq3416-4 02-07T20:51:11 Pt ambulates with cane 93045-4Deytylbbi department OvfhWJ9499-27-05Y56:51:26[facility] NoteTXT1.2.840.471847.1.13.104.2.7. 2.963084|2269177117QJDqnvipnra for patient urwy36461-6BeeiVVXQSABNYYIZqzbllrys C-CDA narrative [address] GyrfOtppjjbexYawaqgwegWKJA570642292 4QUKOCERGGNDYSZBPLMADCF8051-18-91F0 0:51:261.2.840.785599.1.72.3.15|1.2 .840.215778.1.13.104.2.7.2.727879_2 [id number] [facility] 2024-02-08 20:43:13 6JlbocutILfUnJLLaG633zA/9GbsgI+2tFK CRRa/jxCVb/9ffxnwQNTmp/rDVb8735-4 02-07T20:43:13 CC: Pt arrives SOB after leaving [place] earlier in the shift. He reports he [...] 3 BC powders and drank 3 beers." 47650-8Jebadtmnt department Triage isvoVH7732-56-27K75:48:36[facility] Triage noteTXT1.2.840.476570.1.13.104.2.7. 2.095375|6553337031ZWPjcmnxeoy for patient bozp07070-4Ltoetxsks department NoteLNNARRATIVEFormatted C-CDA narrative nidj087025145Bsfemq R Christine MACHUCA[id number] 5IDZIYFZUHFDNNWMQVBMXBE4347-89-78L5 0:48:361.2.840.464676.1.72.3.15|1.2 .840.141424.1.13.104.2.7.2.727879_2 [id number] Leah Baum Christine RN [facility] 2024-02-08 17:04:05 e7Gscvj+uWt3OqHKDCoRGPTboHjHG1db4R+ vXQOnp/Gafi/Nz2XbLk8EIDk1SjSb1606-1 7:04:05 Patient walked to the nurses station and stated "I have another emergency and I have to leave right now. I need this IV taken out immediately."Encouraged patient to stay and he stated "I have to leave immediately and I don't want to take this out myself" IV d/c at this time and patient ambulated out of the department with a steady gait. 22632-5Xjpdmnrep department FflqVT3543-12-32C31:05:22[facility] NoteTXT1.2.840.403262.1.13.104.2.7. 2.024577|0849424447AACgoqkqcty for patient ekxm40298-8HxljMUNLDQHHNPYCubyggnie C-CDA narrative pacw359509763Gclb M Hayes RN[id number] 5ODTNCFNGZKFUQHKALMEZED4146-92-77U7 7:05:221.2.840.830135.1.72.3.15|1.2 .840.530199.1.13.104.2.7.2.727879_2 [id number] Allison Zhang RN [facility] 2024-02-08 14:23:02 pncgzgOqcqDdwGpP9w9vuVz1iW4W/Z3pRfm uswrhKjDYJwQ/zQwZvxVq0XbUgnYs8573-0 02-07T14:23:02 Pt ambulates with a cane 69764-5Jlgurkicw department JryiVN2662-48-75I00:23:12Emergency department NoteTXT1.2.840.467219.1.13.104.2.7. 2.610376|5848218398DEFvuzcyrix for patient exrz93714-9YeqwPSUSLJAXUUDBumhrosuc C-CDA narrative zwwg367082661KjihsKylie Foster RN[address] HjegLddbwnngtGjutgjrtmYDGE799302051 4QCYQDDPKIHHPEVDVGEEALX7040-36-79L7 4:23:121.2.840.397246.1.72.3.15|1.2 .840.476154.1.13.104.2.7.2.727879_2 [id number] Kylie Foster RN [facility] 2024-02-08 14:13:15 Z6s491/31WzCW8Xt9pqyigmOzeWZpGbUzby KVklrqBV8LV4X7JwDBy6QWpqmSFFr8669-7 4:13:15 Pt has taken 8-packets of BC [...] only thing that helps." Face is flushed. 01559-8Kebizoxag department Triage iyrxRH3193-15-40Z65:17:26[facility] Triage noteTXT1.2.840.849685.1.13.104.2.7. 2.347882|4429264801YJXavftoidx for patient hgro60532-9Axlyxdqgh department NoteLNNARRATIVEFormatted C-CDA narrative vmar436209917Brclfxp Fief RNUT[address] PkteVetlvqzamBlnrwkfgzFHLF458089883 7QXYDDUXYSBFWXCWCXMJIWJ9773-81-13A4 4:17:261.2.840.549295.1.72.3.15|1.2 .840.335571.1.13.104.2.7.2.727879_2 [id number] Hali Aviles RN [facility] 2024-01-14 06:16:25 8Dbr8GyjXy2Qa4l2mkHTIpd5Gb7Y/FhSiR0 ND8cXX5znzzmZhk+hZiG4xZlvesYk2725-5 06:16:25 Pt given printed and verbal discharge [...] w/d, pt leaving in no apparent distress, 83278-3Ejwtfrffq department VyolUB9437-54-78L39:17:20[facility] NoteTXT1.2.840.350502.1.13.104.2.7. 2.855730|0982629330PXUgftcjzdj for patient rtnp69642-2FnztPCRKZDCILFQUbupwvibb C-CDA narrative textUT[address] RxcmTgoypkxnfFduaufeluMDPX438847849 8HWTHZZWKSKKQPWUGVRBHAH1951-59-32X2 6:17:201.2.840.262659.1.72.3.15|1.2 .840.529191.1.13.104.2.7.2.727879_2 [id number] [facility] 2024-01-14 04:49:43 r3QYmgsJAQgBr0f0cfS2WREdfv5Bq+E0JFo 9c2RN5pKt4rrlCMdfQniPp0mmQbXy5341-6 04:49:43 CC: "My COPD is acting up [...] ext without difficulty, amb with steady gait 60287-3Cxhlqxtkr department Triage rdobVI5638-67-48X50:55:49[facility] Triage noteTXT1.2.840.684837.1.13.104.2.7. 2.172840|8747609697PCTatquvbnq for patient agwt94254-8Tzmoxocpj department NoteLNNARRATIVEFormatted C-CDA narrative hpyq637282481Axaqvq R Shehadeh RN[address] PipnHrdylfajuOqopqdqncGVOF516158973 4TCLSPITOWIXRSDIWDIFXBO8548-94-53R1 4:55:491.2.840.108743.1.72.3.15|1.2 .840.934733.1.13.104.2.7.2.727879_2 [id number] Leah King RN [facility] 2024-01-14 04:43:00 Rou50jluE9niYAeHznZrx8q4OyBeut8O4by djsmrB+5ijk9JppqtbdRh13jAc4f/04:43:00Associated Order(s): EKG-12 Lead ROUTINE ONCEPre-Procedure Diagnose(s): Chest pain, unspecified typePost-Procedure Diagnose(s): Chest pain, unspecified type [facility] Emergency Department NotePatient Name: Randy Edwards of : 1970 53 year old maleTreatment Room: [facility]/CW5Svihufl Record Number: [id number] Care Physician: Adrianna King Escorted by: Family [5]Mode of Arrival: Personal means [1]EMS Treatment Prior to ED Arrival:SEARCH ENGINE OPTIMIZATION STRATEGIST treatment: NTGPTA treatment comments: 0.4 mg SL taken SEARCH ENGINE OPTIMIZATION STRATEGIST, no releifTravel and Exposure Screening:SymptomsDoes patient have [...] Resident: Max Nur Results:Lab ResultsCOMP. METABOLIC PANEL (79559) - AbnormalResult Value Ref RangeNA 138 135 [...] 49 (*) 13 - 40 U/LeGFR 93.3 mL/min/1.11u7YRO WITH DIFF - AbnormalWBC 11.59 (*) 4.20 [...] 220 U/LCOVID-19 (ID NOW RAPID TESTING) - XkqdvxSYYJ-TyD-2 Rapid ID NOW Not Detected Not DetectedETHANOLALCOHOL 62 mg/dLEKG:If EKG completed, see Procedure Note.Orders and Treatments:Orders Placed This EncounterProcedures XR CHEST 1 VW TROPONIN I COMP. METABOLIC PANEL (55641) LIPASE, SERUM CBC WITH DIFF N-Terminal Pro-Bnp Ethanol COVID-19 (ID NOW TESTING) Lab Only COVID Interpretation O2 Per ProtocolOrders Placed This EncounterMedications morpHINE (4 mg/mL) injection 4 mg ondansetron (ZOFRAN (PF)) injection 4 mg ipratropium-albuteroL (DUONEB) 0.5 mg-3 mg(2.5 mg base)/3 mL nebulizer solution 3 mLFirst Provider Eval:ED EventsDate/Time Event User Mtxkdcwv57/07/24 0510 Medical Screening Begins JAC NAVARRO MD --01/14/24 0510 First Provider Evaluation JAC NAVARRO MD --ED COURSEDiagnosis/Impression as of 01/14/24 0605Chest pain, unspecified typeBronchitisProcedures:EKG-12 Lead ROUTINE ONCEDate/Time: 01/14/2024 5:24 AMPerformed by: Jac Navarro MDAuthorized by: Jac Navarro MDECG interpreted by ED Physician in the absence of a fixed assets accountant: yesPrevious ECG:Previous ECG: Compared to currentSimilarity: No [...] on fileFollow-up:Electronically signed by:Jac Navarro MD01/14/24 0600 21558-4Qtppqgezo Emergency department QcjePZ4948-91-20C89:00:50Physician Emergency department NoteTXT1.2.840.926964.1.13.104.2.7. 2.585915|[id number] for patient jzma31867-7Vnxmfkdtx department NoteLNNARRATIVEFormatted C-CDA narrative text[address] ZoolR[id number] 5FQUGNCFBDRUMUCSCHURVPE0584-20-84L8 6:00:501.2.840.293182.1.72.3.15|1.2 .840.425433.1.13.104.2.7.2.727879_2 [id number] [facility] 2023-12-22 23:12:16 OfR1+lsNvwIzcN7RVuJL9gzZPmb3SsTFmB6 dSMvZxbuvMSIzZeCj71x0JuGxw3kG2341-6 12-22T23:12:16 Pt given printed and verbal discharge [...] with steady gait, in no apparent distress, 87545-6Jyjeuznwj department IludGX9956-01-81J57:13:50Emergency department NoteTXT1.2.840.171518.1.13.104.2.7. 2.564965|4100030034LGQehstvevb for patient eysp68625-0GlbdXYISPEXIMKXGqjmpymbd C-CDA narrative boop336957288BhsdrMary Magaña RNUT[address] KljnOsvvbsmebQhkibmhkwVSMF404864419 5KVMMMSLNIJFHRZGHCDIFYZ2807-79-57C7 3:13:501.2.840.888287.1.72.3.15|1.2 .840.878285.1.13.104.2.7.2.727879_2 [id number] Mary Magaña RN [facility] 2023-12-22 21:41:55 aXKmH5UmtX63GsIfutsboLCzBPEHNWfsLFw jXPFBUkwtulHnuKlus1o+8+YGE5M75936-8 12-22T21:41:55 Pt arrives ambulatory to ED reporting bleeding with stools and 10/10 abdominal pain. States he was here last night but had to leave before receiving results d/t having to work. Says the pain became worse so he came back in. 80888-8Qobsagwel department Triage khtoPZ6193-61-88O85:48:52[facility] Triage noteTXT1.2.840.260378.1.13.104.2.7. 2.940414|[id number] for patient gtoe91187-6Jfcmpddrl department NoteLNNARRATIVEFormatted C-CDA narrative [id number] L Williams RN[address] Qb[id number] 0UBOIXVIEWHGXFNFHBMMOVJ9421-72-78U8 1:48:521.2.840.248049.1.72.3.15|1.2 .840.508009.1.13.104.2.7.2.727879_2 [id number] Leah Lizama RN [facility] 2023-12-21 21:31:00 Ob2MwHhXM+w2DlG4aJ/JU4F6Qgoy89Qu5h8 11zog+HCbDEWYZ8N+mtv3Sh8y6h4H9648-9 12-21T21:31:00 Patient leaving AMA,discussed risks of leaving against medical advice, Dr. Maciel aware and notified of patient's decision.Patient encouraged to seek medical attention for any new/prolonged/worsening of symptoms and stressed importance of follow up with a medical provider as soon as possible. AMA form explained, patient signed form.IV d'cd, dressing to site.Patient leaving ambulatory with steady gait, appears in no distress. [address] department NfyhJS8245-24-08L94:38:39[facility] NoteTXT1.2.840.134991.1.13.104.2.7. 2.137296|[id number] for patient weyp88907-4OgypPGOPZEGGLWINtyzrpurs C-CDA narrative zjur474477793VtybkMary Magaña RNUT[id number] 1XEUIMJCCKNFQYPBYMCBOOV1276-72-49T7 1:38:391.2.840.497438.1.72.3.15|1.2 .840.838947.1.13.104.2.7.2.727879_2 [id number] Mary Magaña RN [facility] 2023-12-21 21:30:00 5Pw6Kf+ZijY6JTZ16mkrhYtjPdVlHEERyhb 1x3LR+yoZHK1uJ6MO78bRO/ouPgsV7031-7 12-21T21:30:00 Pt wished to leave AMA. Pt states " yall were wonderful but 3am come real early." [address] department SacvBN7753-59-24J79:36:58[facility] NoteTXT1.2.840.792172.1.13.104.2.7. 2.938694|[id number] for patient konv32904-7CunyPRJSNCYLHUZAqpyzrqng C-CDA narrative text[id number] 5OMUETKITMJJLLOEYRFWAID8520-85-56Q6 1:36:581.2.840.416562.1.72.3.15|1.2 .840.077275.1.13.104.2.7.2.727879_2 [id number] [facility] 2023-12-21 21:26:22 TZyikMhKgrPanyJN7e2TiUyMbENXbcyQbBL 8UNVmV0tDNy8mkk8KPuLU8g5NbNup9199-0 12-21T21:26:22 Pt asking to go outside and smoke, wants to go home and eat. Pt educated on risks of leaving AMA. Provider informed pt is in pain. 29844-8Ghcudtaqg department CmuwKV0785-19-58X36:33:35[facility] NoteTXT1.2.840.251115.1.13.104.2.7. 2.549078|[id number] for patient xeir88678-4DpkgZWHPKTQNDLNJllxzsfaf C-CDA narrative [id number] R Shehadeh RNUT[id number] 8AUCDZJSRDTXGOKSXLRRWJV9185-59-98Z1 1:33:351.2.840.884351.1.72.3.15|1.2 .840.117856.1.13.104.2.7.2.727879_2 [id number] Leah King RN [facility] 2023-12-21 19:31:50 7ux9+4qhAIh3EkdhW8cKH8rFThOLt5bVljw IaIAkkS8gzPyZa6tFiGIu7lb+UQlO1575-1 12-21T19:31:50 Pt arrived ambulatory with complaints of bright red rectal bleeding and generalized abdominal pain this afternoon. Pt states his stool was normal consistency but continuous bright red blood. Denies this happening before.Pt is an alcoholic, had 2 beer [employer]. States he vomits all the time but not something new today. 84646-8Niqgplvjz department Triage ptfiBH6242-87-42O22:33:28[facility] Triage noteTXT1.2.840.474735.1.13.104.2.7. 2.473556|[id number] for patient tflu31428-1Hvhcoimqs department NoteLNNARRATIVEFormatted C-CDA narrative [id number] D Roman RN[address] Ma[id number] 8FWVDQBZFADOCUCSIKSQFVD0732-68-61N0 9:33:281.2.840.864265.1.72.3.15|1.2 .840.610420.1.13.104.2.7.2.727879_2 [id number] Gabi Esqueda RN [facility] 2023-11-10 20:13:39 kbMfmMRONq1LzkYAOXo0IuzZ76a/TlPnCn4 [facility]/JQ687tH4UYvUdOUx3bxaWXmaP4609-9 11-10T20:13:39 Pt requesting to leave AMA. ERP notified. Pt counseled to remain, risks of leaving AMA including discussed with pt. Pt continued to decline further ER evaluation at this time. AMA papers signed, witnessed, and placed on patient's chart. Pt left ambulatory. VS stable, no ataxia noted, GCS 15, A&Ox4. 81957-1Isxposncq department UqksYE9321-44-70J01:13:52[facility] NoteTXT1.2.840.526310.1.13.104.2.7. 2.289837|[id number] for patient axdn45264-8HfusIITXTJAWKJTCaihqlmom C-CDA narrative [id number] R Goodrich RN[id number] 1NEZXZXVEURECFNNDJZJDFW3309-93-67M0 0:13:521.2.840.191097.1.72.3.15|1.2 .840.042194.1.13.104.2.7.2.727879_1 [id number] Brisedia Medrano RN [facility] 2023-11-10 19:30:29 o2Or5/AzD2v5L9sye+7HHtdmVtxF/EYpEtf TZBZujI2XMzM/pwHu56vTx9UG5k1w3440-4 11-10T19:30:29 Patient arrived to ED c/o SOB and COPD exacerbation. Symptoms started this morning. Patient wears 3L NC at home. Patient is a smoker. Patient states having the chills, diarrhea, and vomiting. States having sharp pains in chest from coughing. 90966-3Qxkkncehq department Triage yyclCP8344-99-22Z30:35:27[facility] Triage noteTXT1.2.840.099414.1.13.104.2.7. 2.694767|[id number] for patient hgdm73611-1Ohujgoelg department NoteLNNARRATIVEFormatted C-CDA narrative [id number]-Tczsb McInnis RN[id number] 6QGJNYOJXCHEXTBJKBPEKGX6343-34-09F2 9:35:271.2.840.456537.1.72.3.15|1.2 .840.702126.1.13.104.2.7.2.727879_1 [id number] Sreedhar Gomez RN [facility]
[2024-03-23] MEDS ORDERED: ONDANSETRON 4 MG/2 ML VIAL ONE (06:40)
[2024-03-23] MEDS ORDERED: KETOROLAC 30 MG/ML INJ ONE (06:40)
[2024-03-23] MEDS ORDERED: METHYLPREDNISOLONE 125 MG INJ ONE (06:40)
[2024-03-23] MEDS ORDERED: ALBUTEROL 2.5 MG/3 ML NEB SOL ONE (06:40)
[2024-03-23] MEDS ORDERED: IPRATROPIUM BROM 0.5MG/2.5ML ONE (06:40)
[2024-03-23] MEDS ORDERED: LORazepam 2 MG/ML VIAL ONE (06:40)
[2024-03-23] MEDS ORDERED: MORPHINE 4 MG/ML SYR ONE (06:41)
[2024-03-23 06:46] LABS: Absolute Basophils 0.1 K/uL (0-0.5); Absolute Eosinophils 0.1 K/uL (0-0.5); Absolute Lymphocytes (CBC) 1.1 K/uL (0.7-4.9); Absolute Monocytes 0.8 K/uL (0.1-1.3); Absolute Neutrophil 7.7 K/uL (1.8-8.0); Basophils % 0.7 % (0-1.3); Eosinophils % 0.8 % (0-4.4); Hematocrit 45.4 % (39.6-49.0); Hemoglobin 15.3 g/dL (13.6-17.9); Lymphocytes % 11.5 % (15.3-44.8); MCH 32.8 pg (27.0-35.0); MCHC 33.8 g/dL (32.0-36.0); MCV 97.2 fL (80-100); MPV 7.3 fL (7.6-11.3); Monocytes % 8.3 % (3.3-12.3); Neutrophils % 78.7 % (41.7-73.7); Platelets 190 thou/uL (152-406); RBC Red Blood Cell Count 4.67 M/uL (4.33-5.43)
[2024-03-23 07:00] LABS: PT Prothrombin Time 9.8 SECONDS (9.5-12.5); Protime INR 0.89
[2024-03-23 07:03] LABS: ALT/SGPT 48 U/L (16-61); AST/SGOT 36 U/L (15-37); Albumin 4.1 g/dL (3.4-5.0); Albumin/Globulin Ratio 1.1 (1.1-1.8); Alkaline Phosphatase 76 U/L (45-117); Anion Gap 13.1 mEq/L (5.0-15.0); BUN Blood Urea Nitrogen 6 mg/dL (7-18); Bicarbonate 24 mEq/L (21-32); Bilirubin Total 0.5 mg/dL (0.2-1.0); Creatine Phosphokinase 33 U/L (39-308); Globulin 3.6 g/dL (2.3-3.5); Glomerular Filtration Rate 110 ml/min (=/>90); Glucose Level 108 mg/dL (74-106); Lipase 67 U/L (13-75); Magnesium 1.9 mg/dL (1.6-2.4); NT PRO-BNP 91 pg/mL (<125); Potassium 4.1 mEq/L (3.5-5.1); Protein, Total 7.7 g/dL (6.4-8.2); Sodium Level 133 mEq/L (136-145); Troponin High Sensitivity 5.2 pg/mL (<58.9)
[2024-03-23 07:09] LABS: Bilirubin Direct < 0.2 mg/dL (0-0.2); Bilirubin Indirect, Calculated 0.3 mg/dL (0.2-0.8)
--- NOTE | 2024-03-23 07:45 | ER ---
Nurse's Notes [facility] Name: Randy Briones Age: 53 yrs Sex: Male : 1970 Arrival Date: 03/23/2024 Time: 06:01 Bed 7 Private MD: Diagnosis: COPD/ Chronic obstructive pulmonary disease with (acute) exacerbation Presentation: 03/23 06:09 Chief complaint: Patient states: SOB AND PAIN UNDER HIS LEFT CHEST/RIB AREA WOKE HIM UP jj7 AT 3A. Coronavirus screen: At this time, the client does not indicate any symptoms associated with coronavirus-19. Ebola Screen: No symptoms or risks identified at this time. Initial Sepsis Screen: Does the patient meet any 2 criteria? No. Patient's initial sepsis screen is negative. Does the patient have a suspected source of infection? No. Patient's initial sepsis screen is negative. Risk Assessment: Do you want to hurt yourself or someone else? Patient reports no desire to harm self or others. Onset of symptoms was March 23, 2024. 06:09 Method Of Arrival: EMS: [facility] jj7 06:09 Acuity: CANDACE 3 jj7 Triage Assessment: 06:13 General: Appears in no apparent distress. uncomfortable, Behavior is calm, cooperative, jj7 appropriate for age. Pain: Complains of pain in left lateral anterior chest and abdomen Pain currently is 10 out of 10 on a pain scale. Respiratory: Reports shortness of breath at rest Breath sounds are clear bilaterally. Onset: The symptoms/episode began/occurred gradually, the patient has mild shortness of breath. GI: Reports upper abdominal pain, cramping. Historical: - Allergies: 06:13 Lisinopril; jj7 - PMHx: 06:13 Alcoholism; COPD; Hepatitis B (Hypertension); home 02 3LNC PRN; home 02 3LNC PRN; jj7 Hypertension; Osteoporosis; - PSHx: 06:13 Amputation of left index finger; jj7 - Immunization history:: Adult Immunizations up to date, Client reports receiving the 2nd dose of the Covid vaccine, Flu vaccine is not up to date. - Infectious Disease History:: Denies. - Social history:: Smoking status: Patient reports the use of cigarette tobacco products, smokes two packs cigarettes per day. Patient uses alcohol, on a daily basis. patient/guardian reports chronic longstanding heavy alcohol consumption. 14-15 BEERS A DAY. Patient/guardian denies using street drugs, IV drugs. - Family history:: not pertinent. Screenin:13 [facility] ED Fall Risk Assessment (Adult) History of falling in the last 3 months, jj7 including since admission No falls in past 3 months (0 pts) Confusion or Disorientation No (0 pts) Intoxicated or Sedated No (0 pts) Impaired Gait No (0 pts) Mobility Assist Device Used No (0 pt) Altered Elimination No (0 pt) Score/Fall Risk Level. Abuse screen: Denies injuries from another. Nutritional screening: No deficits noted. Tuberculosis screening: No symptoms or risk factors identified. Assessment: 06:13 Reassessment: SEE TRIAGE ASSESSMENT. jj7 07:01 General: Appears in no apparent distress. uncomfortable, Behavior is calm, cooperative. rs5 Pain: Complains of pain in abdomen Pain currently is 3 out of 10 on a pain scale. Quality of pain is described as aching, Is continuous. Neuro: Level of Consciousness is awake, alert, obeys commands, Oriented to person, place, time, situation. Cardiovascular: Patient's skin is warm and dry. Rhythm is sinus tachycardia. Respiratory: Reports shortness of breath Airway is patent Respiratory effort is even, unlabored, Respiratory pattern is regular, symmetrical. GI: Abdomen is round non-distended, Abd is soft and non tender X 4 quads. : No signs and/or symptoms were reported regarding the genitourinary system. EENT: No signs and/or symptoms were reported regarding the EENT system. Derm: Skin is intact, Skin is pink, warm \T\ dry. Musculoskeletal: Range of motion: intact in all extremities. 07:40 Reassessment: Patient and/or family updated on plan of care and expected duration. Pain rs5 level reassessed. Patient is alert, oriented x 3, equal unlabored respirations, skin warm/dry/pink. Patient states feeling better. Vital Signs: 06:09 BP 184 / 164; Pulse 123; Resp 17; Temp 98.2; Pulse Ox 98% on R/A; Weight 79.38 kg; jj7 Height 5 ft. 4 in. ; Pain 10/10; 06:52 BP 144 / 121; Pulse 108; Pulse Ox 99% on R/A; Pain 10/10; tm6 07:40 BP 144 / 101; Pulse 91; Resp 18; Pulse Ox 97% on R/A; rs5 06:09 Body Mass Index 30.04 (79.38 kg, 162.56 cm) j7 06:09 Pain Scale: Adult jj7 06:52 Pain Scale: Adult tm6 Everest Coma Score: 07:40 Eye Response: spontaneous(4). Motor Response: obeys commands(6). Verbal Response: sp4 oriented(5). Total: 15. ED Course: 06:09 Patient arrived in ED. j7 06:09 Jose Crews MD is Attending Physician. sp4 06:12 Triage completed. 7 06:13 Arm band placed on right wrist. Patient placed in an exam room, on a stretcher, on jj7 radiation monitor, on pulse oximetry. 06:13 Patient has correct armband on for positive identification. Placed in gown. Bed in low jj7 position. Call light in reach. Side rails up X 1. Client placed on continuous cardiac and pulse oximetry monitoring. NIBP monitoring applied. bus monitor on. Pulse ox on. 06:27 EKG done, by ED staff, reviewed by Jose Crews MD. Missed attempt(s): 20 gauge in tm6 left forearm. 06:38 XRAY CXR (1 view) In Process Unspecified. EDMS 07:39 Stevie Moscoso, RN is Primary Nurse. rs5 08:05 No provider procedures requiring assistance completed. IV discontinued, intact, rs5 bleeding controlled, No redness/swelling at site. Pressure dressing applied. Administered Medications: 06:51 Drug: Ativan IVP 2 mg IVP once Route: IVP; Site: left antecubital; tm6 07:10 Follow up: Response: No adverse reaction; Anxiety decreased rs5 06:51 Drug: Ipratropium Inhalation Aerosol 0.5 mg Inhalation once Route: Inhalation; tm6 07:10 Follow up: Response: No adverse reaction rs5 06:51 Drug: Ketorolac IVP 30 mg IVP once Route: IVP; Site: left antecubital; tm6 07:10 Follow up: Response: No adverse reaction; Pain is decreased rs5 06:51 Drug: morphine IVP or IV 4 mg IVP once over 4 mins Route: IVP; Infused Over: 4 mins; tm6 Site: left antecubital; 07:10 Follow up: Response: No adverse reaction; Pain is decreased rs5 06:51 Drug: Ondansetron IVP 4 mg IVP once; over 2 minutes Route: IVP; Site: left antecubital; tm6 07:05 Follow up: Response: No adverse reaction rs5 06:52 Drug: Albuterol Inhalation 2.5 mg Inhalation every 20 minutes x3 Route: Inhalation; tm6 06:52 Drug: MethylPrednisoLONE IVP 125 mg IVP once Route: IVP; Site: left antecubital; tm6 07:10 Follow up: Response: No adverse reaction rs5 07:10 Drug: Albuterol Inhalation 2.5 mg Inhalation every 20 minutes x3 Route: Inhalation; rs5 07:30 Drug: Albuterol Inhalation 2.5 mg Inhalation every 20 minutes x3 Route: Inhalation; rs5 07:40 Follow up: Response: No adverse reaction rs5 Medication: 06:13 VIS not applicable for this client. jj7 Outcome: 07:44 Discharge ordered by . letha 08:05 Patient left the ED. rs5 08:05 Discharged to home ambulatory, rs5 08:05 Condition: stable 08:05 Discharge instructions given to patient, family, Instructed on discharge instructions, follow up and referral plans. Demonstrated understanding of instructions, follow-up care, medications, Prescriptions given X 3, Signatures: Dispatcher [employer] Wilcox RN RN jj7 Stevie Moscoso RN RN rs5 Jose Crews MD MD sp4 Masterson, Tawney, RN RN tm6 Corrections: (The following items were deleted from the chart) 09:03 07:01 Pain: Denies pain. rs5 rs5 09:06 08:44 Patient left the ED. rs5 rs5
--- NOTE | 2024-03-23 07:45 | EDPHYS ---
Physician Documentation [facility] Name: Randy Briones Age: 53 yrs Sex: Male : 1970 Arrival Date: 03/23/2024 Time: 06:01 Bed 7 Private MD: ED Physician Jose Crews HPI: 03/23 07:25 This 53 yrs old Male presents to ER via EMS with complaints of Shortness Of sp4 Breath. 07:40 Patient 53-year-old male with history of alcoholism COPD presents with acute onset sp4 shortness of breath associated with abdominal discomfort. . Historical: - Allergies: 06:13 Lisinopril; jj7 - PMHx: 06:13 Alcoholism; COPD; Hepatitis B (Hypertension); home 02 3LNC PRN; home 02 3LNC PRN; jj7 Hypertension; Osteoporosis; - PSHx: 06:13 Amputation of left index finger; jj7 - Immunization history:: Adult Immunizations up to date, Client reports receiving the 2nd dose of the Covid vaccine, Flu vaccine is not up to date. - Infectious Disease History:: Denies. - Social history:: Smoking status: Patient reports the use of cigarette tobacco products, smokes two packs cigarettes per day. Patient uses alcohol, on a daily basis. patient/guardian reports chronic longstanding heavy alcohol consumption. 14-15 BEERS A DAY. Patient/guardian denies using street drugs, IV drugs. - Family history:: not pertinent. ROS: 07:40 Constitutional: Negative for fever, chills, and weight loss, positive shortness of sp4 breath 07:40 All other systems are negative, Exam: 07:40 Constitutional: This is a well developed, well nourished patient who is awake, alert, sp4 and in mild respiratory distress, Head/Face: Normocephalic, atraumatic. Eyes: Pupils equal round and reactive to light, extra-ocular motions intact. Lids and lashes normal. Conjunctiva and sclera are not injected. Cornea within normal limits. Periorbital areas with no swelling, redness, or edema. ENT: Nares patent. No nasal discharge, no septal abnormalities noted. Tympanic membranes are normal and external auditory canals are clear. Oropharynx with no redness, swelling, or masses, exudates, or evidence of obstruction, uvula midline. Mucous membranes moist. Neck: Trachea midline, no thyromegaly or masses palpated, and no cervical lymphadenopathy. Supple, full range of motion without nuchal rigidity, or vertebral point tenderness. Chest/axilla: Normal chest wall appearance and motion. Nontender with no deformity. No lesions are appreciated. Cardiovascular: Regular rate and rhythm with a normal S1 and S2. No gallops, murmurs, or rubs. Normal PMI, no JVD. No pulse deficits. Respiratory: Lungs have equal breath sounds bilaterally, diffuse bilateral expiratory wheezes on auscultation tachypnea. Abdomen/GI: Soft, with normal bowel sounds. No distension or tympany. No guarding or rebound. No evidence of tenderness throughout. Back: No spinal tenderness. No costovertebral tenderness. Skin: Warm, dry with normal turgor. Normal color with no rashes, no lesions, and no evidence of cellulitis. MS/ Extremity: Pulses equal, no cyanosis. Neurovascular intact. Full, normal range of motion. Neuro: Awake and alert, GCS 15, oriented to person, place, time, and situation. Cranial nerves II-XII grossly intact. Motor strength 5/5 in all extremities. Sensory grossly intact. Psych: Awake, alert, with orientation to person, place and time. Behavior, mood, and affect are within normal limits 07:42 ECG was reviewed by the Attending Physician. EKG at 0 618 sinus tachycardia at the sp4 rate of 123, right bundle branch block. Vital Signs: 06:09 BP 184 / 164; Pulse 123; Resp 17; Temp 98.2; Pulse Ox 98% on R/A; Weight 79.38 kg; jj7 Height 5 ft. 4 in. ; Pain 10/10; 06:52 BP 144 / 121; Pulse 108; Pulse Ox 99% on R/A; Pain 10/10; tm6 07:40 BP 144 / 101; Pulse 91; Resp 18; Pulse Ox 97% on R/A; rs5 06:09 Body Mass Index 30.04 (79.38 kg, 162.56 cm) [facility] 06:09 Pain Scale: Adult [facility] 06:52 Pain Scale: Adult tm6 Shani Coma Score: 07:40 Eye Response: spontaneous(4). Motor Response: obeys commands(6). Verbal Response: sp4 oriented(5). Total: 15. MDM: 06:15 Patient medically screened. sp4 07:08 ED course: INDICATION: Male, 53 years old, CHEST PAIN TECHNIQUE: 1 view COMPARISON(S): sp4 Multiple chest radiographs most recent 03/15/2024; imaging of several recent CT exams not available for review FINDINGS: SUPPORT DEVICES: None. LUNGS/PLEURA: No consolidation, pleural effusion, or pneumothorax. Hazy bibasilar airspace opacities remain. HEART/MEDIASTINUM: Normal size and configuration. OTHER: No acute osseous findings. IMPRESSION: No acute cardiopulmonary findings or significant change from several recent chest radiographs. Hazy bibasilar opacities are favored to represent prominent epicardial fat given chronicity. Electronically signed by: Sriram Galaviz MD 03/23/2024 06:53 AM . 07:40 Differential diagnosis: asthma, Bronchitis CHF exacerbation, Chronic Obstructive sp4 Pulmonary Disease pneumonia. Data reviewed: vital signs, nurses notes, EMS record, old medical records, lab test result(s), EKG, radiologic studies, plain films. 07:44 Consideration of Admission/Observation Escalation of care including sp4 admission/observation considered. ED course: Patient has improved after breathing treatments also Ativan was given for anxiety and tremors. Patient stable for discharge home.. 03/23 06:10 Order name: BMP; Complete Time: 07:25 [facility] 03/23 06:10 Order name: CBC with Diff; Complete Time: 07:08 [facility] 03/23 06:10 Order name: CPK; Complete Time: 07:25 [facility] 03/23 06:10 Order name: Hepatic Function; Complete Time: 07:25 [facility] 03/23 06:10 Order name: Lipase; Complete Time: 07:25 4 03/23 06:10 Order name: Magnesium; Complete Time: 07:25 4 03/23 06:10 Order name: NT PRO-BNP; Complete Time: 07:25 [facility] 03/23 06:10 Order name: PT-INR; Complete Time: 07:08 4 03/23 06:10 Order name: Troponin HS; Complete Time: 07:25 4 03/23 06:10 Order name: BNP sp4 03/23 06:22 Order name: Alcohol Level; Complete Time: 07:08 4 03/23 06:10 Order name: XRAY CXR (1 view) [facility] 03/23 06:10 Order name: EKG; Complete Time: 06:11 4 03/23 06:10 Order name: Cardiac monitoring; Complete Time: 06:19 [facility] 03/23 06:10 Order name: EKG - Nurse/Tech; Complete Time: 06:52 03/23 06:10 Order name: IV Saline Lock; Complete Time: 06:52 [facility] 03/23 06:10 Order name: Labs collected and sent; Complete Time: 06:52 [facility] 03/23 06:10 Order name: O2 Per Protocol; Complete Time: 06:52 03/23 06:10 Order name: O2 Sat Monitoring; Complete Time: 06:52 EC:42 Rate is 123 beats/min. Rhythm is regular, Sinus tachycardia. QRS [place] is Normal. [place] sp4 interval is normal. QRS interval is prolonged. QT interval is normal. No Q waves. T waves are Normal. No ST changes noted. Clinical impression: No evidence of ischemia. Interpreted by me. Reviewed by me. Administered Medications: 06:51 Drug: Ativan IVP 2 mg IVP once Route: IVP; Site: left antecubital; tm6 07:10 Follow up: Response: No adverse reaction; Anxiety decreased rs5 06:51 Drug: Ipratropium Inhalation Aerosol 0.5 mg Inhalation once Route: Inhalation; tm6 07:10 Follow up: Response: No adverse reaction rs5 06:51 Drug: Ketorolac IVP 30 mg IVP once Route: IVP; Site: left antecubital; tm6 07:10 Follow up: Response: No adverse reaction; Pain is decreased rs5 06:51 Drug: morphine IVP or IV 4 mg IVP once over 4 mins Route: IVP; Infused Over: 4 mins; tm6 Site: left antecubital; 07:10 Follow up: Response: No adverse reaction; Pain is decreased rs5 06:51 Drug: Ondansetron IVP 4 mg IVP once; over 2 minutes Route: IVP; Site: left antecubital; tm6 07:05 Follow up: Response: No adverse reaction rs5 06:52 Drug: Albuterol Inhalation 2.5 mg Inhalation every 20 minutes x3 Route: Inhalation; tm6 06:52 Drug: MethylPrednisoLONE IVP 125 mg IVP once Route: IVP; Site: left antecubital; tm6 07:10 Follow up: Response: No adverse reaction rs5 07:10 Drug: Albuterol Inhalation 2.5 mg Inhalation every 20 minutes x3 Route: Inhalation; rs5 07:30 Drug: Albuterol Inhalation 2.5 mg Inhalation every 20 minutes x3 Route: Inhalation; rs5 07:40 Follow up: Response: No adverse reaction rs5 Disposition Summary: 03/23/24 07:44 Discharge Ordered Notes: Location: Home sp4 Problem: new sp4 Symptoms: have improved sp4 Condition: Stable sp4 Diagnosis - COPD/ Chronic obstructive pulmonary disease with (acute) exacerbation sp4 Followup: sp4 - With: Private Physician - When: 7 - 10 days - Reason: Recheck today's complaints Discharge Instructions: - Discharge Summary Sheet sp4 - Chronic Obstructive Pulmonary Disease sp4 Forms: - Patient Portal Instructions sp4 Prescriptions: - Ventolin HFA 90 mcg/actuation Inhalation HFA Aerosol Inhaler - inhale 2 puff INHALATION route every 4 hours PRN wheezing; 1 unit; Refills: 0, sp4 Product Selection Permitted - Tramadol 50 mg Oral Tablet - take 1 tablet ORAL route every 8 hours as needed; 12 tablet; Refills: 0, sp4 Product Selection Permitted - Prednisone 20 mg Oral Tablet - take 2 tablets ORAL route once daily for 5 days; 10 tablet; Refills: 0, Product sp4 Selection Permitted Signatures: Dispatcher [employer] Wilcox RN RN jj7 Stevie Moscoso RN RN rs5 Jose Crews MD MD sp4 Leland Graf RN RN tm6 Corrections: (The following items were deleted from the chart) 06:11 06:11 BASIC METABOLIC PANEL+C.LAB.BRZ ordered. EDMS EDMS 06:11 06:11 CBC+H.LAB.BRZ ordered. EDMS EDMS 06:11 06:11 CREATINE PHOSPHOKINASE+C.LAB.BRZ ordered. EDMS EDMS 06:11 06:11 HEPATIC FUNCTION+C.LAB.BRZ ordered. EDMS EDMS 06:11 06:11 LIPASE+C.LAB.BRZ ordered. EDMS EDMS 06:11 06:11 MAGNESIUM+C.LAB.BRZ ordered. EDMS EDMS 06:11 06:11 PROBNP+C.LAB.BRZ ordered. EDMS EDMS 06:11 PROTIME (+INR)+COAG.LAB.BRZ ordered. EDMS EDMS 06:11 Troponin High Sensitivity+C.LAB.BRZ ordered. EDMS EDMS
[2024-03-23 09:06] VITALS: BP 144/121; TEMP 98.2; O2SAT 99
--- NOTE | 2024-03-23 12:10 | RAD REPORT ---
EXAM DESCRIPTION: XR CHEST 1 VIEW CLINICAL HISTORY: Male, 53 years old, CHEST PAIN TECHNIQUE: 1 view COMPARISON: Multiple chest radiographs most recent 03/15/2024; imaging of several recent CT exams not available for review FINDINGS: SUPPORT DEVICES: None. LUNGS/PLEURA: No consolidation, pleural effusion, or pneumothorax. Hazy bibasilar airspace opacities remain. HEART/MEDIASTINUM: Normal size and configuration. OTHER: No acute osseous findings. IMPRESSION: No acute cardiopulmonary findings or significant change from several recent chest radiog raphs. Hazy bibasilar opacities are favored to represent prominent epicardial fat given chronicity. Electronically signed by: Sriram Galaviz MD 03/23/2024 06:53 AM CDT Due to temporary technical issues with the PACS/Fluency reporting system, reports are being signed by the in house radiologist without review as a courtesy to ensure prompt reporting. The interpreting r adiologist is fully responsible for the content of the report.
== END 2024-03-23 08:44 | disposition home or self-care (01) ==
LOC: ER 06:01
DX: J44.1 Chronic obstructive pulmonary disease with (acute) exacerbation (principal); Z99.81 Dependence on supplemental oxygen; I10 Essential (primary) hypertension; F10.20 Alcohol dependence, uncomplicated; F17.210 Nicotine dependence, cigarettes, uncomplicated; Z88.8 Allergy status to other drugs, medicaments and biological substances
CPT/HCPCS: 93005; 85025; 80048; 36415; 83735; 82550; 85610; 80076; 84484; 83690; 83880; 71045; 82077; J7613; J7644; J2919; J2405

== ENCOUNTER 2024-04-03 22:42 | Inpatient (IN) | payer OTHER ==
--- OUTSIDE RECORDS SUMMARY | 2024-04-03 22:48 | XMS REPORT | Continuity of Care Document ---
Author Name Unknown Address [address] [facility] [address] [place] [address] [facility] Address [address] [facility] [address] [place] [address] Care Team Providers Care [place] Man Name Role Phone GIRISH LOPEZIsaiasROMEO Primary Care Physician Unavailab DARIEN Posey Attending Clinician Unavailable WENDY BROWNLEE Attending Clinician Unava ilable PEG CAMP Attending Clinician Unavailable Peg Camp NP Attending Clinician [phone] DEMETRIA DAVENPORT Attending Clinician Unav ailDemetria Simpson MD Attending Clinician + Christina Victoria Attending Clinician [phone] JAC NAVARRO Attending Clinician Unavailable Jac Navarro MD Attending Clinician [phone] TYLER ROWE Attending Clinician Unavailab MELINDA Boothe Attending Clinician Unavailable Melinda Maciel DO Attending Clinician [phone] CHRISTY HOLLIDAY Attending Clinician Unavailable Christy Holliday MD Attending Clinician MARIA ELENA CHAN MEDICAL Attending George akins Unavailable DENISE SUNG Attending Clinician Unavailable KARLEY ADAMS Attending Clinician Unavailable JAC NAVARRO Admitting Clinician Unavailable MELINDA MACIEL Admitting Clinician Unavailable CHRISTY HOLLIDAY Admitting Clinician Unavailable Payers Payer Name Policy Type Policy Number Effective Date Expirati on Date Source [facility] VINOD LEE COPAY FOCUS 9 [id number] 2024 00:00:00 [facility] [id number] 2023 00:00:00 2024 00:00:00 [employer] [id number] 2023 00:00:00 [employer] 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 [employer]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 94 ON 9 [id number] 2023 00:00:00 Problems Condition Name Condition Details Condition Category Status Onset Date Resolution Date Last Treatment Date Treating Clinician Comments Source Acute exacerbati on of chronic obstructiv e pulmonary disease (COPD) Acute exacerbati on of chronic obstructiv e pulmonary disease (COPD) Disease Active 03-24 00:00: 00 [facility] Obesity (BMI 30-39.9) Obesity (BMI 30-39.9) Disease Active 03-24 00:00: 00 [facility] Allergies, Adverse Reactions, Alerts Allergy Name Allergy Type Status Severity Reaction(s) Onset Date Inactive Date Treating Clinician Comments Source Lisinopr il Propensi ty to adverse reaction s Active Anaphylaxis 03-24 00:00: 00 [facility] LISINOPR [place] DRUG INGREDI Active Anaphylaxis 03-24 00:00: 00 [facility] Social History Social Habit Start Date Stop Date Quantity Comments Source History of tobacco use Smokes tobacco daily [facility] function 2024-02-08 00:00:00 2024-02-08 00:00:00 [facility] Alcohol intake 2024-02-08 00:00:00 2024-02-08 00:00:00 4.29 /d [facility] Exposure to SARS-CoV-2 (event) 2022-10-04 00:00:00 2022-10-14 10:25:00 Not sure [facility] Tobacco use and exposure 2018-03-24 00:00:00 2018-03-24 00:00:00 User of smokeless tobacco [facility] Tobacco Comment 2018-03-24 00:00:00 2018-03-24 00:00:00 trying to quit [facility] Sex Ass[birth year] At 1970 00:00:00 1970 00:00:00 [facility] Smoking Status Start Date Stop Date Source Smokes tobacco daily 2018-03-24 00:00:00 [facility] Medications Ordered Medication Name Filled Medication Name Start Date Stop Date Current Medication? Ordering Clinician Indication Dosage Frequency Signature (SIG) Comments Components Source ketorolac (TORADOL) injection 30 mg 02-17 03:15: 00 02-17 15:14 :00 Yes 30mg 30 mg, Slow IV Push, ONCE, 1 dose, On Thu02/17/24 at 2215, Routine [facility] methylpredn isolone sod succ (SOLU-MEDRO L) injection 125 mg 02-17 03:00: 00 02-17 14:59 :00 Yes 125mg 125 mg, Intravenou s, ONCE, 1 dose, On Thu02/17/24 at 2200, 2 mL [facility] ipratropium -albuteroL (DUONEB) 0.5 mg-3 mg(2.5 mg base)/3 mL nebulizer solution 6 mL 02-17 03:00: 00 02-17 14:59 :00 Yes 6mL 6 mL, Inhalation , ONCE NOW, 1 dose, On Thu02/17/24 at 2200, Routine [facility] NaCl 0.9% (NS) bolus infusion 1,000 mL 02-17 03:00: 00 02-17 14:59 :00 Yes 1000mL at 999 mL/hr, 1,000 mL, IV Infusion, ONCE, 1 dose, On Thu02/17/24 at 2200, LAURYN [facility] triamterene -hydrochlor othiazide 37.5-25 mg per capsule 02-16 20:52: 37 02-16 00:00 :00 No 1{capsu le} Take 1 capsule by mouth every morning. [facility] albuterol 5 mg/mL nebulizer solution 02-16 20:51: 42 02-16 00:00 :00 No 2.5mg Inhale 2.5 mg every 6 (six) hours as needed for Wheezing or Shortness of Breath. [facility] ketorolac (TORADOL) injection 15 mg 02-08 03:00: 00 02-08 02:21 :00 No 15mg 15 mg, Slow IV Push, ONCE, 1 dose, On Thu02/08/24 at 2200, Routine [facility] iopamidol (ISOVUE 370-500 mL) injection 100 mL 02-07 22:30: 00 02-07 22:30 :00 Yes [id number] 100mL 100 mL, Intravenou s, ONCE, 1 dose, On Thu02/08/24 at 1730, Routine [facility] ipratropium -albuteroL (DUONEB) 0.5 mg-3 mg(2.5 mg base)/3 mL nebulizer solution 3 mL 02-07 21:15: 00 02-07 20:45 :00 No 3mL 3 mL, Inhalation , ONCE, 1 dose, On Thu02/08/24 at 1615, Routine [facility] morpHINE (2 mg/mL) injection 4 mg 02-07 21:15: 00 02-07 20:27 :00 No 4mg 4 mg, Slow IV Push, ONCE, 1 dose, On Thu02/08/24 at 1615, STAT [facility] ondansetron (ZOFRAN (PF)) injection 4 mg 02-07 21:15: 00 02-07 20:22 :00 No 4mg 4 mg, Slow IV Push, ONCE, 1 dose, [facility]02/08/24 [facility] 2 gram/50 mL (4 %) infusion 2 g 02-07 21:00: 00 02-07 21:30 :00 No 2g 2 g, IV Piggyback, Administer over 60 Minutes, ONCE, 1 dose, On Thu02/08/24 at 1600, Routine [facility] ipratropium -albuteroL (DUONEB) 0.5 mg-3 mg(2.5 mg base)/3 mL nebulizer solution 3 mL 02-07 20:30: 00 02-07 19:31 :00 No 3mL 3 mL, Inhalation , ONCE, 1 dose, On Thu02/08/24 at 1530, Routine [facility] HYDROcodone -acetaminop hen (NORCO) 10-325 mg tablet 1 tablet 01-13 13:15: 00 01-13 12:15 :00 No 1{tbl} 1 tablet, Oral, ONCE, 1 dose, On Thu01/14/24 at 0715, [facility] ipratropium -albuteroL (DUONEB) 0.5 mg-3 mg(2.5 mg base)/3 mL nebulizer solution 3 mL 01-13 13:00: 00 01-13 11:53 :00 No 3mL 3 mL, Inhalation , ONCE NOW, 1 dose, On Thu01/14/24 at 0700, [facility] ondansetron (ZOFRAN (PF)) injection 4 mg 01-13 11:30: 00 01-13 11:37 :00 No 4mg 4 mg, Slow IV Push, ONCE, 1 dose, On Thu01/14/24 at 0530, [facility] morpHINE (4 mg/mL) injection 4 mg 01-13 11:30: 00 01-13 11:37 :00 No 4mg 4 mg, Slow IV Push, ONCE, 1 dose, On Thu01/14/24 at 0530, STAT [facility] azithromyci n (ZITHROMAX Z-PORTER) 250 mg tablet 01-13 00:00: 00 02-16 00:00 :00 No [id number] Take 500 mg on day 1 then 250 mg on days 2-5 [facility] predniSONE 20 mg tablet 01-13 00:00: 00 02-16 00:00 :00 No [id number] Take 1 po tid x 2 days, then take 1 po bid x 3 days, then take 1 po daily x 3 days. [facility] acetaminoph en-codeine 300-30 mg tablet 01-13 00:00: 00 01-21 04:59 :00 Yes [id number] 1{tbl} Take 1 tablet by mouth every 6 (six) hours as needed for Pain (scale 7-10) (severe cough) for up to 7 days. Indication s: acute pain, severe cough [facility] clonazePAM 1 mg tablet 12-26 00:00: 00 02-16 00:00 :00 No 1mg Take 1 tablet by mouth at bedtime as needed for Other (anxiety). [facility] KCL (KLOR-CON M20) tablet 40 mEq 12-23 05:00: 00 12-23 05:07 :00 No 40meq 40 mEq, Oral, ONCE, 1 dose, On Thu12/22/23 at 2300, [facility] NaCl 0.9% (NS) bolus infusion 1,000 mL 12-23 05:00: 00 12-23 05:09 :00 No 1000mL at 999 mL/hr, 1,000 mL, IV Infusion, ONCE, 1 dose, On Thu12/22/23 at 2300, [facility] ondansetron (ZOFRAN (PF)) injection 4 mg 12-23 04:30: 00 12-23 04:24 :00 No 4mg 4 mg, Slow IV Push, ONCE, 1 dose, On Thu12/22/23 at 2230, [facility] maalox:diph enhydrAMINE :lidocaine 2 % viscous 1:1:1 (FIRST-MOUT HWASH BLM) oral suspension 15 mL 12-23 04:15: 00 12-23 04:17 :00 No 15mL 15 mL, Oral, ONCE, 1 dose, On Thu12/22/23 at 2215, Routine [facility] famotidine (PEPCID (PF)) injection 20 mg 12-23 04:15: 00 12-23 04:15 :00 No 20mg 20 mg, Slow IV Push, ONCE, 1 dose, On Thu12/22/23 at 2215, LAURYN [facility] HYDROcodone -acetaminop hen (NORCO) 10-325 mg tablet 1 tablet 12-22 04:30: 00 12-22 16:29 :00 No 1{tbl} 1 tablet, Oral, ONCE, 1 dose, On Thu12/21/23 at 2230, Routine [facility] pantoprazol e (PROTONIX) 80 mg in NaCl 0.9% (NS) 20 mL syringe 12-22 04:15: 00 12-22 16:14 :00 No 80mg 80 mg, IV Push, ONCE, 1 dose, On Thu12/21/23 at 2215, Administer over 2 Minutes, 20 mL [facility] iopamidol (ISOVUE 370-500 mL) injection 100 mL 12-22 03:30: 00 12-22 03:30 :00 No [id number] 100mL 100 mL, Intravenou s, ONCE, 1 dose, On Thu12/21/23 at 2130, Routine [facility] morpHINE (4 mg/mL) injection 4 mg 12-22 03:30: 00 12-22 02:16 :00 No 4mg 4 mg, Slow IV Push, ONCE, 1 dose, On Thu12/21/23 at 2130, Routine [facility] ondansetron (ZOFRAN (PF)) injection 4 mg 12-22 02:45: 00 12-22 02:02 :00 No 4mg 4 mg, Slow IV Push, ONCE, 1 dose, On Thu12/21/23 at 2045, Routine [facility] hydrocortis one 25 mg suppository 12-22 00:00: 00 Yes [id number] 25mg Insert 1 Suppositor y into rectum 2 (two) times daily as needed for Rectal itching/pa in. [facility] ondansetron 4 mg disintegrat ing tablet 12-22 00:00: 00 02-16 00:00 :00 No [id number] 4mg Take 1 tablet by mouth every 8 (eight) hours as needed for Nausea and Vomiting (N/V). [facility] amoxicillin -clavulanat e 875-125 mg per tablet 12-22 00:00: 00 01-02 05:59 :00 No [id number] 1{tbl} Take 1 tablet by mouth every 12 (twelve) hours for 10 days. [facility] methylpredn isolone sod succ (SOLU-MEDRO L) injection 125 mg 2022-11 08:45: 00 10-27 20:44 :00 No 125mg 125 mg, Slow IV Push, ONCE, 1 dose, On Thu10/27/23 at 0245, STAT [facility] ipratropium -albuteroL (DUONEB) 0.5 mg-3 mg(2.5 mg base)/3 mL nebulizer solution 3 mL 2022-11 08:45: 00 10-27 20:44 :00 No 3mL 3 mL, Inhalation , ONCE NOW, 1 dose, On Thu10/27/23 at 0245, LAURYN [facility] diazePAM (VALIUM) tablet 10 mg 2022-11 07:45: 00 10-27 19:44 :00 No 10mg 10 mg, Oral, ONCE, 1 dose, On Thu10/27/23 at 0145, LAURYN [facility] levoFLOXaci n (LEVAQUIN) tablet 500 mg 2022-11 07:45: 00 10-27 19:44 :00 No 500mg 500 mg, Oral, ONCE, 1 dose, On Thu10/27/23 at 0145, LAURYN
Re ason for Anti-Infec tive: Empiric Non-Surgic al Prophylaxi s
Durat ion of therapy: Once (ED) [facility] iopamidol (ISOVUE 370-500 mL) injection 70 mL 2021-11 18:30: 00 10-14 18:30 :00 No [id number] 70mL 70 mL, Intravenou s, ONCE, 1 dose, On Thu10/14/22 at 1230, Routine [facility] methylpredn isolone sod succ (SOLU-MEDRO L) injection 125 mg 2021-11 18:00: 00 Yes 125mg 125 mg, Intravenou s, Q6H, First dose on Thu10/14/22 at 1200, Until Discontinu ed, Routine [facility] furosemide (LASIX) injection 40 mg 2021-11 17:45: 00 10-14 16:39 :00 No 40mg 40 mg, IV Push, ONCE, 1 dose, On Thu10/14/22 at 1145, LAURYN [facility] ipratropium -albuteroL (DUONEB) 0.5 mg-3 mg(2.5 mg base)/3 mL nebulizer solution 3 mL 2021-11 17:30: 00 10-14 16:41 :00 No 3mL 3 mL, Inhalation , ONCE, 1 dose, On Thu10/14/22 at 1130, Routine [facility] FENTanyl PF (SUBLIMAZE (PF)) injection 50 mcg 2021-11 16:45: 00 10-14 16:39 :00 No 50ug 50 mcg, Slow IV Push, ONCE, 1 dose, On Thu10/14/22 at 1045, Routine [facility] levoFLOXaci n 750 mg tablet 2021-11 00:00: 00 02-16 00:00 :00 No [id number] 750mg Take 1 tablet by mouth every 24 (twenty-fo ur) hours. [facility] HYDROcodone -acetaminop hen (NORCO) 10-325 mg tablet 1 tablet 03-12 12:15: 00 03-12 11:21 :00 No 1{tbl} 1 tablet, Oral, ONCE, 1 dose, On Thu03/12/22 at 0715, Routine [facility] HYDROcodone -acetaminop hen 10-325 mg tablet 03-12 00:00: 00 03-20 04:59 :00 No [id number] 1{tbl} Take 1 tablet by mouth every 6 (six) hours as needed for Pain (scale 7-10) for up to 7 days. Indication s: acute pain [facility] ipratropium -albuteroL (DUONEB) 0.5 mg-3 mg(2.5 mg base)/3 mL nebulizer solution 3 mL 02-20 13:00: 00 Yes 3mL 3 mL, Inhalation , QID, First dose on Thu02/20/22 at 0800, Until Discontinu ed, Routine [facility] methylPREDN ISolone sod succ (SOLU-MEDRO L (PF)) injection 40 mg 02-20 11:45: 00 02-20 10:43 :00 No 40mg 40 mg, Intravenou s, ONCE, 1 dose, On Thu02/20/22 at 0645, STAT [facility] foLIC acid (FOLATE) tablet 1 mg 02-20 11:45: 00 02-20 10:41 :00 No 1mg 1 mg, Oral, ONCE, 1 dose, On Thu02/20/22 at 0645, LAURYN [facility] thiamine (VITAMIN B1) injection 100 mg 02-20 11:45: 00 02-20 10:43 :00 No 100mg 100 mg, Intravenou s, ONCE, 1 dose, On Thu02/20/22 at 0645, LAURYN [facility] LORazepam (ATIVAN) injection 2 mg 02-20 11:45: 00 02-20 10:42 :00 No 2mg 2 mg, Slow IV Push, ONCE, 1 dose, On Thu02/20/22 at 0645, STAT [facility] ipratropium -albuteroL (DUONEB) 0.5 mg-3 mg(2.5 mg base)/3 mL nebulizer solution 3 mL 02-20 10:30: 00 02-20 09:34 :00 No 3mL 3 mL, Inhalation , ONCE, 1 dose, On [facility] 02/20/22 at 0530, Routine [facility] albuterol 90 mcg/actuati on inhaler 02-20 00:00: 00 Yes [id number] 2{puff} Inhale 2 Puffs every 4 (four) hours as needed for Wheezing or Shortness of Breath. [facility] triamterene -hydrochlor othiazid 37.5-25 mg tablet 02-20 00:00: 00 Yes [id number] 1{tbl} Take 1 tablet by mouth daily. [facility] chlordiazeP OXIDE 25 mg capsule 02-20 00:00: 00 Yes [id number] 25mg Take 1 capsule by mouth every 6 (six) hours as needed for Anxiety, Agitation, Heart Rate => 100 or Detox. [facility] predniSONE 10 mg tablet 02-20 00:00: 00 02-16 00:00 :00 No [id number] TAKE ONE TABLET BY MOUTH DAILY [facility] albuterol 2.5 mg /3 mL (0.083 %) nebulizer solution 02-20 00:00: 00 02-16 00:00 :00 No [id number] 2.5mg Inhale 3 mL every 4 (four) hours. May also nebulize one extra every 6 hours. [facility] budesonide- formoteroL 160-4.5 mcg/actuati on inhaler 02-20 00:00: 00 02-16 00:00 :00 No [id number] 2{puff} Inhale 2 Puffs 2 (two) times daily. [facility] albuterol 5 mg/mL nebulizer solution 07-16 14:02: 20 Yes 2.5mg Inhale 2.5 mg every 6 (six) hours as needed for Wheezing or Shortness of Breath. [facility] budesonide- formoterol 160-4.5 mcg/actuati on inhaler 07-16 00:00: 00 Yes 2{puff} Inhale 2 Puffs 2 (two) times daily. [facility] albuterol 2.5 mg /3 mL (0.083 %) nebulizer solution 07-16 00:00: 00 Yes 2.5mg Inhale 3 mL every 4 (four) hours as needed for Wheezing or Shortness of Breath. [facility] triamterene -hydrochlor othiazide 37.5-25 mg per capsule 03-26 16:32: 14 Yes 1{capsu le} Take 1 capsule by mouth every morning. [facility] amLODIPine 10 mg tablet 03-26 16:32: 14 Yes 10mg Take 10 mg by mouth at bedtime. [facility] gabapentin 100 mg capsule 03-26 16:32: 14 Yes 100mg Take 100 mg by mouth 2 (two) times daily as needed ([facility] pain). [facility] foLIC acid 1 mg tablet 03-26 16:32: 14 Yes 1mg Take 1 mg by mouth daily. [facility] budesonide- formoterol 160-4.5 mcg/actuati on inhaler 03-26 00:00: 00 02-16 00:00 :00 No 2{puff} Inhale 2 Puffs 2 (two) times daily. [facility] Immunizations Ordered Immunization Name Filled Immunization Name Date Status Comments Source SARS-COV-2 COVID-19 PFIZER VACCINE 2021-02-03 00:00:00 Completed [facility] SARS-COV-2 COVID-19 PFIZER VACCINE 2021-02-03 00:00:00 Completed [facility] SARS-COV-2 COVID-19 PFIZER VACCINE 2021-02-03 00:00:00 Completed [facility] SARS-COV-2 COVID-19 PFIZER VACCINE 2021-01-13 00:00:00 Completed [facility] SARS-COV-2 COVID-19 PFIZER VACCINE 2021-01-13 00:00:00 Completed [facility] SARS-COV-2 COVID-19 PFIZER VACCINE 2021-01-13 00:00:00 Completed [facility] Pneumococcal Polysaccharide, PPSV23 (PNEUMOVAX) 2018-03-26 00:00:00 Completed [facility] Influenza Virus Vaccine Quad IM 3+ YRS 2018-03-26 00:00:00 Completed [facility] Pneumococcal Polysaccharide, PPSV23 (PNEUMOVAX) 2018-03-26 00:00:00 Completed [facility] Influenza Virus Vaccine Quad IM 3+ YRS 2018-03-26 00:00:00 Completed [facility] Pneumococcal Polysaccharide, PPSV23 (PNEUMOVAX) 2018-03-26 00:00:00 Completed [facility] Influenza Virus Vaccine Quad IM 3+ YRS 2018-03-26 00:00:00 Completed [facility] Pneumococcal Polysaccharide, PPSV23 (PNEUMOVAX) Unknown Completed [facility] Influenza Virus Vaccine Quad IM 3+ YRS Unknown Completed [facility] SARS-COV-2 COVID-19 PFIZER VACCINE Unknown Completed [facility] SARS-COV-2 COVID-19 PFIZER VACCINE Unknown Completed [facility] Pneumococcal Polysaccharide, PPSV23 (PNEUMOVAX) Unknown Completed [facility] Influenza Virus Vaccine Quad IM 3+ YRS Unknown Completed [facility] SARS-COV-2 COVID-19 PFIZER VACCINE Unknown Completed [facility] SARS-COV-2 COVID-19 PFIZER VACCINE Unknown Completed [facility] Pneumococcal Polysaccharide, PPSV23 (PNEUMOVAX) Unknown Completed [facility] Influenza Virus Vaccine Quad IM 3+ YRS Unknown Completed [facility] SARS-COV-2 COVID-19 PFIZER VACCINE Unknown Completed [facility] SARS-COV-2 COVID-19 PFIZER VACCINE Unknown Completed [facility] Pneumococcal Polysaccharide, PPSV23 (PNEUMOVAX) Unknown Completed [facility] Influenza Virus Vaccine Quad IM 3+ YRS Unknown Completed [facility] SARS-COV-2 COVID-19 PFIZER VACCINE Unknown Completed [facility] SARS-COV-2 COVID-19 PFIZER VACCINE Unknown Completed [facility] Pneumococcal Polysaccharide, PPSV23 (PNEUMOVAX) Unknown Completed [facility] Influenza Virus Vaccine Quad IM 3+ YRS Unknown Completed [facility] SARS-COV-2 COVID-19 PFIZER VACCINE Unknown Completed [facility] SARS-COV-2 COVID-19 PFIZER VACCINE Unknown Completed [facility] Pneumococcal Polysaccharide, PPSV23 (PNEUMOVAX) Unknown Completed [facility] Influenza Virus Vaccine Quad IM 3+ YRS Unknown Completed [facility] SARS-COV-2 COVID-19 PFIZER VACCINE Unknown Completed [facility] SARS-COV-2 COVID-19 PFIZER VACCINE Unknown Completed [facility] Pneumococcal Polysaccharide, PPSV23 (PNEUMOVAX) Unknown Completed [facility] Influenza Virus Vaccine Quad IM 3+ YRS Unknown Completed [facility] SARS-COV-2 COVID-19 PFIZER VACCINE Unknown Completed [facility] SARS-COV-2 COVID-19 PFIZER VACCINE Unknown Completed [facility] Pneumococcal Polysaccharide, PPSV23 (PNEUMOVAX) Unknown Completed [facility] Influenza Virus Vaccine Quad IM 3+ YRS Unknown Completed [facility] SARS-COV-2 COVID-19 PFIZER VACCINE Unknown Completed [facility] SARS-COV-2 COVID-19 PFIZER VACCINE Unknown Completed [facility] Vital Signs Vital Name Observation Time Observation Value Comments S ource Systolic blood pressure 2024-02-18 01:57:00 134 mm[facility]Hg[facility] Diastolic blood pressure 2024-02-18 01:57:00 94 mm[Hg] [facility] Body height 2024-02-18 01:57:00 162.6 cm [facility] Body weight 2024-02-18 01:57:00 79.379 kg [facility] BMI 2024-02-18 01:57:00 30.04 kg/m2 [facility] Heart rate 2024-02-18 01:53:00 110 /min [facility] Body temperature 2024-02-18 01:53:00 36.61 Debbie [facility] Respiratory rate 2024-02-18 01:53:00 24 /min [facility] Oxygen saturation in Arterial blood by Pulse oximetry 2024-02-18 01:53:00 93 /min [facility] Systolic blood pressure 2024-02-09 01:54:05 150 mm[Hg] [facility] Diastolic blood pressure 2024-02-09 01:54:05 91 mm[Hg] [facility] Heart rate 2024-02-09 01:54:05 87 /min [facility] Respiratory rate 2024-02-09 01:54:05 17 /min [facility] Oxygen saturation in Arterial blood by Pulse oximetry 2024-02-09 01:54:05 93 /min [facility] Body temperature 2024-02-09 01:45:00 36.67 Debbie [facility] Body height 2024-02-09 01:45:00 162.6 cm [facility] Body weight 2024-02-09 01:45:00 81.194 kg [facility] BMI 2024-02-09 01:45:00 30.73 kg/m2 [facility] Respiratory rate 2024-02-08 21:00:00 18 /min [facility] Oxygen saturation in Arterial blood by Pulse oximetry 2024-02-08 21:00:00 96 /min [facility] Systolic blood pressure 2024-02-08 20:27:00 164 mm[Hg] [facility] Diastolic blood pressure 2024-02-08 20:27:00 90 mm[Hg] [facility] Heart rate 2024-02-08 20:27:00 83 /min [facility] Body temperature 2024-02-08 19:12:00 36.83 Debbie [facility] Body height 2024-02-08 19:12:00 162.6 cm [facility] Body weight 2024-02-08 19:12:00 81.194 kg [facility] BMI 2024-02-08 19:12:00 30.73 kg/m2 [facility] Heart rate 2024-01-14 12:15:00 98 /min [facility] Body temperature 2024-01-14 12:15:00 36.56 Debbie [facility] Respiratory rate 2024-01-14 12:15:00 14 /min [facility] Oxygen saturation in Arterial blood by Pulse oximetry 2024-01-14 12:15:00 95 /min [facility] Systolic blood pressure 2024-01-14 12:00:00 140 mm[Hg] [facility] Diastolic blood pressure 2024-01-14 12:00:00 90 mm[Hg] [facility] Body height 2024-01-14 10:51:00 162.6 cm [facility] Body weight 2024-01-14 10:51:00 81.194 kg [facility] BMI 2024-01-14 10:51:00 30.73 kg/m2 [facility] Systolic blood pressure 2023-12-23 05:02:00 133 mm[Hg] [facility] Diastolic blood pressure 2023-12-23 05:02:00 84 mm[Hg] [facility] Heart rate 2023-12-23 05:02:00 78 /min [facility] Body temperature 2023-12-23 05:02:00 36.17 Debbie [facility] Respiratory rate 2023-12-23 05:02:00 17 /min [facility] Oxygen saturation in Arterial blood by Pulse oximetry 2023-12-23 05:02:00 91 /min [facility] Body height 2023-12-23 03:45:00 162.6 cm [facility] Body weight 2023-12-23 03:45:00 81.194 kg [facility] BMI 2023-12-23 03:45:00 30.73 kg/m2 [facility] Systolic blood pressure 2023-12-22 02:08:00 143 mm[Hg] [facility] Diastolic blood pressure 2023-12-22 02:08:00 92 mm[Hg] [facility] Heart rate 2023-12-22 02:08:00 81 /min [facility] Respiratory rate 2023-12-22 02:08:00 13 /min [facility] Oxygen saturation in Arterial blood by Pulse oximetry 2023-12-22 02:08:00 95 /min [facility] Body temperature 2023-12-22 01:33:00 36.72 Debbie [facility] Body height 2023-12-22 01:33:00 162.6 cm [facility] Body weight 2023-12-22 01:33:00 81.239 kg [facility] BMI 2023-12-22 01:33:00 30.74 kg/m2 [facility] Systolic blood pressure 2023-11-11 02:00:00 127 mm[Hg] [facility] Diastolic blood pressure 2023-11-11 02:00:00 87 mm[Hg] [facility] [facility] Heart rate 2023-11-11 02:00:00 79 /min [facility] Respiratory rate 2023-11-11 02:00:00 20 /min [facility] Oxygen saturation in Arterial blood by Pulse oximetry 2023-11-11 02:00:00 98 /min [facility] Body temperature 2023-11-11 01:31:00 36.28 Debbie [facility] Body height 2023-11-11 01:31:00 162.6 cm [facility] Body weight 2023-11-11 01:31:00 79.379 kg [facility] BMI 2023-11-11 01:31:00 30.04 kg/m2 [facility] Systolic blood pressure 2023-10-27 06:54:00 133 mm[facility]Hg[facility] Diastolic blood pressure 2023-10-27 06:54:00 94 mm[Hg] [facility] Heart rate 2023-10-27 06:54:00 95 /min [facility] Body temperature 2023-10-27 06:54:00 36.44 Debbie [facility] Respiratory rate 2023-10-27 06:54:00 22 /min [facility] Body height 2023-10-27 06:54:00 162.6 cm [facility] Body weight 2023-10-27 06:54:00 78.472 kg [facility] BMI 2023-10-27 06:54:00 29.70 kg/m2 [facility] Oxygen saturation in Arterial blood by Pulse oximetry 2023-10-27 06:54:00 94 /min [facility] Systolic blood pressure 2022-10-14 19:43:00 111 mm[Hg] [facility] Diastolic blood pressure 2022-10-14 19:43:00 74 mm[Hg] [facility] Heart rate 2022-10-14 19:43:00 98 /min [facility] Body temperature 2022-10-14 19:43:00 36.39 Debbie [facility] Respiratory rate 2022-10-14 19:43:00 22 /min [facility] Oxygen saturation in Arterial blood by Pulse oximetry 2022-10-14 19:43:00 94 /min [facility] Body height 2022-10-14 16:13:00 162.6 cm [facility] Body weight 2022-10-14 16:13:00 81.647 kg [facility] BMI 2022-10-14 16:13:00 30.90 kg/m2 [facility] Systolic blood pressure 2022-03-12 10:13:00 119 mm[Hg[facility] Diastolic blood pressure 2022-03-12 10:13:00 75 mm[Hg] [facility] Heart rate 2022-03-12 10:13:00 105 /min [facility] Body temperature 2022-03-12 10:13:00 37.28 Debbie [facility] Respiratory rate 2022-03-12 10:13:00 19 /min [facility] Body height 2022-03-12 10:13:00 162.6 cm [facility] Body weight 2022-03-12 10:13:00 99.791 kg [facility] BMI 2022-03-12 10:13:00 37.76 kg/m2 [facility] Oxygen saturation in Arterial blood by Pulse oximetry 2022-03-12 10:13:00 96 /min [facility] Systolic blood pressure 2022-02-20 11:57:00 155 mm[Hg] [facility] Diastolic blood pressure 2022-02-20 11:57:00 88 mm[Hg] [facility] Heart rate 2022-02-20 11:57:00 105 /min [facility] hospital Respiratory rate 2022-02-20 11:57:00 18 /min [facility] Oxygen saturation in Arterial blood by Pulse oximetry 2022-02-20 11:57:00 100 /min [facility] Body temperature 2022-02-20 09:25:00 37 Debbie [facility] Body height 2022-02-20 09:25:00 162.6 cm [facility] Body weight 2022-02-20 09:25:00 96.163 kg [facility] BMI 2022-02-20 09:25:00 36.39 kg/m2 [facility] Procedures Procedure Date / Time Performed Performing Clinician Source AC PANEL 20 + LACTIC ACID 2024-02-08 20:47:00 Christina Villarreal [facility] XR CHEST 1 VW 2024-02-08 19:47:00 Christina Villarreal [facility] URINALYSIS 2024-02-08 19:36:00 [facility] MAGNESIUM 2024-02-08 19:25:00 [facility] TROPONIN I 2024-02-08 19:25:00 [facility] COMP. METABOLIC PANEL ([id number]) 2024-02-08 19:25:00 Christina Villarreal [facility] ETHANOL 2024-02-08 19:25:00 [facility] CBC WITH DIFF 2024-02-08 19:25:00 Christina Villarreal [facility] N-TERMINAL PRO-BNP 2024-02-08 19:25:00 Christina Villarreal [facility] EKG-12 LEAD 2024-01-14 12:00:51 Jac [facility]arro [facility] LIPASE 2024-01-14 11:11:00 Jac Navarro [facility] TROPONIN I 2024-01-14 11:11:00 Jac Navarro [facility] COMP. METABOLIC PANEL ([id number]) 2024-01-14 11:11:00 Jac Navarro [facility] ETHANOL 2024-01-14 11:11:00 Jac Nvaarro [facility] CBC WITH DIFF 2024-01-14 11:11:00 [facility] N-TERMINAL PRO-BNP 2024-01-14 11:11:00 Jac Navarro [facility] COVID-19 (ID NOW RAPID TESTING) 2024-01-14 11:11:00 Jac Navarro [facility] CONSENT/REFUSAL FOR DIAGNOSIS AND TREATMENT 2024-01-14 10:44:32 Doctor Unassigned, [place] [facility] LIPASE 2023-12-23 04:17:00 Tyler Rowe [facility] COMP. METABOLIC PANEL ([id number]) 2023-12-23 04:17:00 Tyler Rowe [facility] CBC WITH DIFF 2023-12-23 04:17:00 Tyler Rowe [facility] URINALYSIS 2023-12-23 04:17:00 Tyler Rowe [facility] CONSENT/REFUSAL FOR DIAGNOSIS AND TREATMENT 2023-12-23 03:40:32 Doctor Unassigned, [place] [facility] CT ABDOMEN PELVIS W CONTRAST 2023-12-22 02:31:05 Melinda Maciel [facility] LIPASE 2023-12-22 01:58:00 Melinda Maciel [facility] COMP. METABOLIC PANEL ([id number]) 2023-12-22 01:58:00 Melinda Maciel [facility] ETHANOL 2023-12-22 01:58:00 Melinda Maciel [facility] CBC WITH DIFF 2023-12-22 01:58:00 Maciel, Melinda [facility] PROTHROMBIN TIME / INR 2023-12-22 [facility]:58[facility]23-12-22 01:58:00 Melinda Maciel [facility] CONSENT/REFUSAL FOR DIAGNOSIS AND TREATMENT 2023-12-22 01:19:14 Doctor Unassigned, [place] [facility] NOTICE OF PRIVACY PRACTICES 2023-11-11 01:24:24 Doctor Unassigned, [place] [facility] CONSENT/REFUSAL FOR DIAGNOSIS AND TREATMENT 2023-11-11 01:23:54 Doctor Unassigned, [place] [facility] COVID-19 (ID NOW RAPID TESTING) 2023-10-27 07:09:00 Jac Navarro [facility] NOTICE OF PRIVACY PRACTICES 2023-10-27 06:49:48 Doctor Unassigned, [place] [facility] CONSENT/REFUSAL FOR DIAGNOSIS AND TREATMENT 2023-10-27 06:47:40 Doctor Unassigned, [place] [facility] CT ABDOMEN PELVIS W CONTRAST 2022-10-14 17:33:00 Melinda Maciel [facility] XR CHEST 1 VW 2022-10-14 17:10:37 Singer [facility] TROPONIN I 2022-10-14 16:37:00 [facility] COMP. METABOLIC PANEL ([id number]) 2022-10-14 16:37[facility]00 [facility] 2022-10-14 16:37:00 Melinda Maciel [facility] PROTHROMBIN TIME / INR 2022-10-14 16:37:00 Wali Maciel [facility] URINALYSIS 2022-10-14 16:37:00 [facility] N-TERMINAL PRO-BNP 2022-10-14 16:37:00 Singer [facility] CONSENT/REFUSAL FOR DIAGNOSIS AND TREATMENT 2022-10-14 15:56:36 Doctor Unassigned, [place] [facility] CONSENT/REFUSAL FOR DIAGNOSIS AND TREATMENT 2022-03-12 10:03:12 Doctor Unassigned, [place] [facility] XR CHEST 1 VW 2022-02-20 09:59:00 Christy Holliady [facility] LIPASE 2022-02-20 09:30:00 Christy Holliday [facility] TROPONIN I 2022-02-20 09:30:00 Christy Holliday [facility] COMP. METABOLIC PANEL ([id number]) 2022-02-20 09:30:00 Christy Holliday [facility] CBC WITH DIFF 2022-02-20 09:30:00 Christy Holliday [facility] N-TERMINAL PRO-BNP 2022-02-20 09:30:00 Christy Holliday [facility] NOTICE OF PRIVACY PRACTICES 2022-02-20 09:15:02 Doctor Unassigned, [place] [facility] CONSENT/REFUSAL FOR DIAGNOSIS AND TREATMENT 2022-02-20 09:14:47 Doctor Unassigned, [place] [facility] Encounters Start Date/Time End Date/Time Encounter Type Admission Type Attending [facility] Facility Care Department Encounter ID Source 2024-04-05 11:30:00 2024-04-05 11:30:00 Outpatient DARIEN LOBO [id number] Maria Elena Duarterolando 2024-03-28 00:00:00 2024-03-28 00:00:00 Outpatient DARIEN LOBO [id number] Maria Elena Alcantara 2024-03-15 08:30:00 2024-03-15 08:30:00 Outpatient WENDY BROWNLEE [id number] Maria Elena Alcantara 2024-02-17 20:58:00 2024-02-17 21:44:00 Emergency X [facility] ERT [id number] [facility] 2024-02-17 20:58:00 2024-02-17 21:44:00 Emergency Peg Camp [facility] 1.2.840.114 350.1.13.10 4.2.7.2.686 [id number] 084 [id number] [facility] 2024-02-08 20:38:00 2024-02-08 21:40:00 Emergency X [facility] ERT [id number] [facility] 2024-02-08 20:38:00 2024-02-08 21:40:00 Emergency Demetria Davenport [facility] 1.2.840.114 350.1.13.10 4.2.7.2.686 [id number] [id number] [facility] 2024-02-08 14:08:00 2024-02-08 17:06:00 Emergency Christina Villarreal [facility] 1.2.840.114 350.1.13.10 4.2.7.2.686 [id number] 084 [id number] [facility] 2024-01-14 04:46:00 2024-01-14 06:23:00 Emergency [facility] [id number] [facility] 2024-01-14 04:46:00 2024-01-14 06:23:00 Emergency Melanie Jac Rossi [facility] 1.2.840.114 350.1.13.10 4.2.7.2.686 [id number] 084 [id number] [facility] 2023-12-22 21:51:00 2023-12-22 23:13:00 Emergency X MALIAHERBERTHTYLER [facility] ERT [id number] [facility] 2023-12-22 21:51:00 2023-12-22 23:13:00 Emergency MaliaherberthTyler avendano [facility] 1.2.840.114 350.1.13.10 4.2.7.2.686 [id number] [id number] [facility] 2023-12-21 19:36:00 2023-12-21 21:52:00 Emergency X MELINDA [facility]IEL [facility] ERT [id number] [facility] 2023-12-21 19:36:00 2023-12-21 21:52:00 Emergency Melinda Maciel [facility] 1.2.840.114 350.1.13.10 4.2.7.2.686 [id number] 084 [id number] [facility] 2023-11-10 19:29:00 2023-11-10 20:14:00 Emergency X [facility] E[facility] [id number] [facility] 2023-11-10 19:29:00 2023-11-10 20:14:00 Emergency Christy Holliday [facility] 1.2.840.114 350.1.13.10 4.2.7.2.686 [id number] 084 [id number] [facility] 2023-10-27 00:49:00 2023-10-27 01:41:00 Emergency X JAC [facility] ERT [id number] [facility] 2023-10-27 00:49:00 2023-10-27 01:41:00 Emergency Jac Navarro [facility] 1.2.840.114 350.1.13.10 4.2.7.2.686 [id number] [id number] [facility] 2023-07-15 00:00:00 2023-07-15 00:00:00 Outpatient DARIEN LOBO [id number] Maria Elena Alcantara 2023-06-16 11:30:00 2023-06-16 11:30:00 Outpatient DARIEN LOBO [id number] Maria Elena Alcantara 2023-05-18 00:00:00 2023-05-18 00:00:00 Outpatient MARIA ELENA CHAN [id number] Maria Elena Alcantara 2022-10-14 10:07:00 2022-10-14 14:39:00 Emergency Christen [facility] ERT [id number] [facility] 2022-10-14 10:07:00 2022-10-14 14:39:00 Emergency Melinda Maciel [facility] 1.2.840.114 350.1.13.10 4.2.7.2.686 [id number] 084 [id number] [facility] 2022-03-12 05:15:00 2022-03-12 06:41:00 Emergency X [facility]RISTY [facility] ERT [id number] [facility] 2022-03-12 05:15:00 2022-03-12 06:41:00 Emergency Christy Holliday [facility] 1.2.840.114 350.1.13.10 4.2.7.2.686 [id number] 084 [id number] [facility] 2022-02-20 04:17:00 2022-02-20 07:16:00 Emergency X [facility]RI[facility]Y [facility] ERT [id number] [facility] 2022-02-20 04:17:00 2022-02-20 07:16:00 Emergency Christy Holliday [facility] 1.2.840.114 350.1.13.10 4.2.7.2.686 [id number] [facility] 2021-02-03 11:10:00 2021-02-03 11:10:00 Outpatient DENISE CAMPO [facility] [id number] [facility] 2021-01-13 11:20:00 2021-01-13 11:20:00 Outpatient [facility] [id number] [facility] 2020-11-10 08:20:00 2020-11-10 08:20:00 Outpatient KARLEY ESTRADA [facility] [id number] [facility] Results Test Description Test Time Test Comments Results Result Co mments Source [facility] + Lactic [id number] 20:52:47* Test Item Value Reference Range Interpretation Comme nts PH (test code = 2) 7.39 7.35-7.45 PCO2 (test code = 9231628094) 42 35-45 PO2 (test code = 5417646552) 76 80-100 L HCO3 (test code = 4467240131) 25 22-26 BE (test code = 7058431113) -0.1 -3.0-3.0 THB (test code = 4694983891) 14.3 g/dL 13.5-18.0 %O2HB (test code = 6182900529) 85.8 % 94.0-99.0 L %COHB ART (test code = 5509334442) 9.0 % 0.0-1.5 H %METHB ART (test code = 1108006277) 0.3 % 0.4-1.5 L VOL%O2 ART (test code = 1211157192) 17.3 % 15.0-23.0 NA (test code = 3067716249) 140 mmol/L 135-145 K+ (test code = 0606931248) 4.1 mmol/L 3.5-5.0 AC CA IONZ (test code = 9382799391) 4.50 mg/dL 4.50-5.30 GLUCOSE (test code = 6437386727) 105 mg/dL 70-110 LACTIC ACID (test code = 1718371277) 2.60 mmol/L 0.50-2.20 H Lab Interpretation (test cod e = 41564-9) Abnormal [facility] [id number] 20:34:14* Test Item Value Reference Range Interpretation Comme nts TROPONIN I (test code = 2569130528) 0.008 ng/mL <=0.034 LOUISE (test code = [...] of biotin. Lab Interpretation (test code = 47411-4) Normal [facility] Nwy-Iyp9080-02-01 20:31:35* Test Item Value Reference Range Interpretation Comme nts NT-proBNP (test code = 21565-3) 188 pg/mL <=125 LOUISE (test code = LOUISE) Result Indeterminate-Consid er causes of NT-proBNP elevation other than Heart failure such as acute coronary syndrome, pulmonary embolism, pulmonary hypertension, sepsis, stroke, and renal dysfunction. Lab Interpretation (test code = 97967-5) [facility]normal [facility] Metabolic Panel (80294)2024-02-08 20:21:10* Test Item Value Reference Range Interpretation Comme nts NA (test code = 7514498023) 135 mmol/L 135-145 K (test code = 4603866309) 4.5 mmol/L 3.5-5.0 CL (test code = 5595756892) 100 mmol/L 98-108 CO2 TOTAL (test code = 1709263148) 22 mmol/L 23-31 L AGAP (test code = 5800447540) 13 2-16 BUN (test code = 3418528852) 8 mg/dL 7-23 GLUCOSE (test code = 0583672082) 97 mg/dL 70-110 CREATININE (test code = 2160-0) 0.65 mg/dL 0.60-1.25 TOTAL BILI (test code = 0085205439) 0.4 mg/dL 0.1-1.1 CALCIUM (test code = 7685116750) 9.4 mg/dL 8.6-10.6 T PROTEIN (test code = 4491248066) 8.2 g/dL 6.3-8.2 ALBUMIN (test code = 9508532921) 4.7 g/dL 3.5-5.0 ALK PHOS (test code = 8299827119) 76 U/L 34-122 ALTv (test code = 1742-6) 33 U/L 5-50 AST(SGOT) (test code = 2923953603) 54 U/L 13-40 H eGFR (test code = 06167-8) 111.3 mL/min/1.73m2 CKD-EPI eGFR (2020). Assuming creatinine has been stable day-to-day for at least three months, the eGFR indicates Category G1 (>= 90 mL/min/1.73 m2) Lab Interpretation (test code = 72865-9) [facility]normal [facility]esium2024-04-01 20:21:10* Test Item Value Reference Range Interpretation Comme nts MAGNESIUM (test code = 8693356841) 2.1 mg/dL 1.7-2.4 Lab Interpretation (test cod e = 79574-9) Normal [facility] 1 [id number] 20:07:21EXAM: XR CHEST 1 VW COMPARISON: 01/14/2024 HISTORY: sob FINDINGS: Lungs: Slightly hyperexpanded lungswith subtle progression of interstitialprominence. Trace pleural effusions could be present. Heart/Mediastinum: Stable cardiomegaly. Bones and soft tissues: No osseous abnormality is visualized.[facility] Cbc with [id number] 20:04:26* Test Item Value Reference Range Interpretation [...] 33.8 g/dL 31.2-35.0 RDW-SD (test code = 73996-9) 50.5 fL 38.5-51.6 RDW-CV (test code = 788-0) 14.3 % 12.1-15.4 PLT (test code = 777-3) 206 150-328 MPV (test code = 11553-2) 9.1 fL 9.8-13.0 L NRBC/100 WBC (test code = 4527657068) 0.0 0.0-10.0 NRBC x10^3 (test code = 3398668066) See_Comment [Automated messa ge] The system which generated this result transmitted reference range: 10*3/?L. The reference range was not used to interpret this result as normal/abnormal. GRAN MAT (NEUT) % (test code = 770-8) 81.0 % IMM GRAN % (test code = 0190393040) 1.20 % LYMPH % (test code = 736-9) 10.9 % MONO % (test code = 5905-5) 6.8 % EOS % (test code = 713-8) 0.0 % BASO % (test code = 706-2) 0.1 % GRAN MAT x10^3(ANC) (test code = 6539148643) 9.31 10*3/uL 1.99-6.95 H IMM GRAN x10^3 (test code = 1666911334) 0.14 10*3/uL 0.00-0.06 H LYMPH x10^3 (test code = 731-0) 1.25 10*3/uL 1.09-3.23 MONO x10^3 (test code = 742-7) 0.78 10*3/uL 0.36-1.02 EOS x10^3 (test code = 711-2) 0.06-0.53 L BASO x10^3 (test code = 704-7) 0.01-0.09 Lab Interpretation (test code = 05774-8) Abnormal [facility]. METABOLIC PANEL (08821)2023-12-23 04:53:26* Test Item Value Reference Range Interpretation Comme nts NA (test code = 5107940161) 135 mmol/L 135-145 K (test code = 0531475233) 3.2 mmol/L 3.5-5.0 L CL (test code = 9693225209) 104 mmol/L 98-108 CO2 TOTAL (test code = 3422634757) 23 mmol/L 23-31 AGAP (test code = 4000354541) 8 2-16 BUN (test code = 7175230498) 11 mg/dL 7-23 GLUCOSE (test code = 3918431308) 82 mg/dL 70-110 CREATININE (test code = 2160-0) 0.64 mg/dL 0.60-1.25 TOTAL BILI (test code = 6298924773) 0.5 mg/dL 0.1-1.1 CALCIUM (test code = 9892293389) 8.8 mg/dL 8.6-10.6 T PROTEIN (test code = 1025698125) 6.7 g/dL 6.3-8.2 ALBUMIN (test code = 5577665162) 4.1 g/dL 3.5-5.0 ALK PHOS (test code = 4500557396) 46 U/L 34-122 ALTv (test code = 1742-6) 21 U/L 5-50 AST(SGOT) (test code = 6133304484) 43 U/L 13-40 H eGFR (test code = 28521-0) 111.8 mL/min/1.73m2 CKD-EPI eGFR (2020). Assuming creatinine has been stable day-to-day for at least three months, the eGFR indicates Category G1 (>= 90 mL/min/1.73 m2) Lab Interpretation (test code = 64990-1) [facility]normal [facility]24-[facility] 04:53:26* Test Item Value Reference Range Interpretation Comme nts LIPASE (test code = 6998396633) 105 U/L 0-220 Lab Interpretation (test cod e = 89775-0) Normal [facility] WITH [id number] 04:34:24* Test Item Value Reference Range Interpretation [...] 33.0 g/dL 31.2-35.0 RDW-SD (test code = 55649-1) 50.9 fL 38.5-51.6 RDW-CV (test code = 788-0) 13.7 % 12.1-15.4 PLT (test code = 777-3) 232 150-328 MPV (test code = 37379-3) 8.7 fL 9.8-13.0 L NRBC/100 WBC (test code = 0033222372) 0.0 0.0-10.0 NRBC x10^3 (test code = 5031083367) See_Comment [Automated BillShrinka ge] The system which generated this result transmitted reference range: 10*3/?L. The reference range was not used to interpret this result as normal/abnormal. GRAN MAT (NEUT) % (test code = 770-8) 58.8 % IMM GRAN % (test code = 8704598165) 0.90 % LYMPH % (test code = 736-9) 27.8 % MONO % (test code = 5905-5) 10.5 % EOS % (test code = 713-8) 1.3 % BASO % (test code = 706-2) 0.7 % GRAN MAT x10^3(ANC) (test code = 5381766505) 5.68 10*3/uL 1.99-6.95 IMM GRAN x10^3 (test code = 6483540589) 0.09 10*3/uL 0.00-0.06 H LYMPH x10^3 (test code = 731-0) 2.69 10*3/uL 1.09-3.23 MONO x10^3 (test code = 742-7) 1.02 10*3/uL 0.36-1.02 EOS x10^3 (test code = 711-2) 0.13 10*3/uL 0.06-0.53 BASO x10^3 (test code = 704-7) 0.07 10*3/uL 0.01-0.09 Lab Interpretation (test code = 43474-6) [facility]normal [facility] W [id number] 03:32:43Exam: CT Abdomen and Pelvis With Contrast, [...] acute osseous abnormality.Soft tissues: Small fat-containing inguinal hernias.[facility] HospitalEthanol2024-02-13 02:32:24* Test Item Value Reference Range Interpretation Comme nts ALCOHOL (test code = 8524223003) 117 mg/dL LOUISE (test code = LOUISE) <10 Gtkhdeup93-215 Toxic>100 Depression of PRESCRIPTIONIST>400 Fatalities Reported [facility] Metabolic Panel (89311)2023-12-22 02:31:43* Test Item Value Reference Range Interpretation Comme nts NA (test code = 5663890246) 133 mmol/L 135-145 L K (test code = 8165058584) 3.3 mmol/L 3.5-5.0 L CL (test code = 4823304347) 102 mmol/L 98-108 CO2 TOTAL (test code = 5386363588) 25 mmol/L 23-31 AGAP (test code = 4268243509) 6 2-16 BUN (test code = 0370857782) 11 mg/dL 7-23 GLUCOSE (test code = 7278449671) 75 mg/dL 70-110 CREATININE (test code = 8116736716) 0.51 mg/dL 0.60-1.25 L TOTAL BILI (test code = 0826965519) 0.5 mg/dL 0.1-1.1 CALCIUM (test code = 3293840757) 8.9 mg/dL 8.6-10.6 T PROTEIN (test code = 2519546484) 7.2 g/dL 6.3-8.2 ALBUMIN (test code = 2426328726) 4.5 g/dL 3.5-5.0 ALK PHOS (test code = 3808182921) 46 U/L 34-122 ALTv (test code = 1742-6) 15 U/L 5-50 AST(SGOT) (test code = 7808753590) 24 U/L 13-40 eGFR (test code = 67661-9) 119.7 mL/min/1.73m2 CKD-EPI eGFR (2020). Assuming creatinine has been stable day-to-day for at least three months, the eGFR indicates Category G1 (>= 90 mL/min/1.73 m2) Lab Interpretation (test code = 94554-7) Abnormal [facility]2024-02-13 02:31:43* Test Item Value Reference Range Interpretation Comme nts LIPASE (test code = 6513492129) 121 U/L 0-220 Lab Interpretation (test cod e = 05241-6) Normal [facility] HospitalProthrombin Time / [id number] 02:21:02* Test Item Value Reference Range Interpretation Comme nts PROTIME PATIENT (test code = 5964-2) 10.5 10.1-12.6 INR (test code = 6301-6) 0.9 Normal INR <1.1; Warfarin Therapeutic range 2.0 to 3.0 or 2.5 to 3.5, depending upon the indications. Lab Interpretation (test code = 96831-2) Normal [facility] with [id number] 02:14:04* Test Item Value Reference Range Interpretation [...] 34.0 g/dL 31.2-35.0 RDW-SD (test code = 06501-7) 49.1 fL 38.5-51.6 RDW-CV (test code = 788-0) 13.5 % 12.1-15.4 PLT (test code = 777-3) 260 150-328 MPV (test code = 98197-4) 8.7 fL 9.8-13.0 L NRBC/100 WBC (test code = 3006676834) 0.0 0.0-10.0 NRBC x10^3 (test code = 4114019192) See_Comment [Automated messa ge] The system which generated this result transmitted reference range: 10*3/?L. The reference range was not used to interpret this result as normal/abnormal. GRAN MAT (NEUT) % (test code = 770-8) 64.3 % IMM GRAN % (test code = 9335958116) 0.90 % LYMPH % (test code = 736-9) 24.2 % MONO % (test code = 5905-5) 9.1 % EOS % (test code = 713-8) 0.7 % BASO % (test code = 706-2) 0.8 % GRAN MAT x10^3(ANC) (test code = 2319025765) 8.73 10*3/uL 1.99-6.95 H IMM GRAN x10^3 (test code = 8817433738) 0.12 10*3/uL 0.00-0.06 H LYMPH x10^3 (test code = 731-0) 3.28 10*3/uL 1.09-3.23 H MONO x10^3 (test code = 742-7) 1.23 10*3/uL 0.36-1.02 H EOS x10^3 (test code = 711-2) 0.10 10*3/uL 0.06-0.53 BASO x10^3 (test code = 704-7) 0.11 10*3/uL 0.01-0.09 H Lab Interpretation (test code = 51346-9) [id number]* Test Item Value Reference Range Interpretation Comments TROPONIN I (test code = 2829424565) 0.007 ng/mL See_Comment [Automated message] The system [...] of biotin. Lab Interpretation (test code = 45658-3) [id number] 10:13:01* Test Item Value Reference Range Interpretation Comme nts NT-proBNP (test code = 1473160167) 52 pg/mL See_Comment [Automated message] The system which generated this result transmitted reference range: <=125. The reference range was not used to interpret this result as normal/abnormal. LOUISE (test code = LOUISE) Biotin has been reported to cause a negative bias, interpret results relative to patient's use of biotin. Lab Interpretation (test code = 04248-4) [facility] (61108)2022-02-20 10:04:02* Test Item Value Reference Range Interpretation Comme nts NA (test code = 5801027738) 137 mmol/L 135-145 K (test code = 5516366226) 3.6 mmol/L 3.5-5.0 CL (test code = 2251421788) 99 mmol/L 98-108 CO2 TOTAL (test code = 5427630532) 25 mmol/L 23-31 AGAP (test code = 5870827276) 2-16 BUN (test code = 6507047185) 6 mg/dL 7-23 L GLUCOSE (test code = 5417429762) 88 mg/dL 70-110 CREATININE (test code = 8821155299) 0.55 mg/dL 0.60-1.25 L TOTAL BILI (test code = 5217267852) 0.8 mg/dL 0.1-1.1 CALCIUM (test code = 2792391786) 8.9 mg/dL 8.6-10.6 T PROTEIN (test code = 5105097991) 7.5 g/dL 6.3-8.2 ALBUMIN (test code = 7933043824) 4.8 g/dL 3.5-5.0 ALK PHOS (test code = 3091691799) 113 U/L 34-122 ALTv (test code = 1742-6) 84 U/L 5-50 H AST(SGOT) (test code = 3988510935) 107 U/L 13-40 H eGFR (test code = 0810470477) mL/min/1.73m2 LOUISE (test code = LOUISE) Association [...] imaging tests). Lab Interpretation (test code = 86247-3) [facility]5950-77-14 10:03:21* Test Item Value Reference Range Interpretation Comme nts LIPASE (test code = 7037200117) 193 U/L 0-220 Lab Interpretation (test cod e = 51791-0) [facility] ZMSL4896-01-43 09:39:17* Test Item Value Reference Range Interpretation Comme nts WBC (test code = 6690-2) See_Comment [Automated Bill[employer]rinka Bloc] The system which generated this result transmitted reference range: 4.20 - 10.70 10*3/?L. The reference range was not used to interpret this result as normal/abnormal. RBC (test code = 789-8) See_Comment [Automated [employer] Bloc] The system which generated this result transmitted [...] g/dL 31.2-35.0 H RDW-SD (test code = 47734-4) 44.4 fL 38.5-51.6 RDW-CV (test code = 788-0) 11.9 % 12.1-15.4 L PLT (test code = 777-3) See_Comment [Automated [employer] Bloc] The system which generated this result transmitted reference range: 150 - 328 10*3/?L. The reference range was not used to interpret this result as normal/abnormal. MPV (test code = 27432-3) 9.2 fL 9.8-13.0 L NRBC/100 WBC (test code = 6484117845) See_Comment [Automated me ssage] The system which generated this result transmitted reference range: 0.0 - 10.0 /100 WBCs. The reference range was not used to interpret this result as normal/abnormal. NRBC x10^3 (test code = 0704632543) <0.01 See_Comment [Automated messa ge] The system which generated this result transmitted reference range: 10*3/?L. The reference range was not used to interpret this result as normal/abnormal. GRAN MAT (NEUT) % (test code = 770-8) 69.9 % IMM GRAN % (test code = 4540938064) 1.50 % LYMPH % (test code = 736-9) 18.9 % MONO % (test code = 5905-5) 7.0 % EOS % (test code = 713-8) 1.9 % BASO % (test code = 706-2) 0.8 % GRAN MAT x10^3(ANC) (test code = 6911699228) 7.15 10*3/uL 1.99-6.95 H IMM GRAN x10^3 (test code = 5673720783) 0.15 10*3/uL 0.00-0.06 H LYMPH x10^3 (test code = 731-0) 1.93 10*3/uL 1.09-3.23 MONO x10^3 (test code = 742-7) 0.72 10*3/uL 0.36-1.02 EOS x10^3 (test code = 711-2) 0.19 10*3/uL 0.06-0.53 BASO x10^3 (test code = 704-7) 0.08 10*3/uL 0.01-0.09 Lab Interpretation (test code = 82170-4) [facility] Notes Date/Time Note Provider Source 2024-02-17 21:43:52 qyV2UUHSaLpBNgzzqLRmDjhlkAEiBLn2rQa Vzq7kkKfli6CAdFVNEyD5kxUubEyB9960-5 02-16T21:43:52 No answer in lobby. 05856-4Ylqtvmnzf department DjiiBM9376-25-08M66:44:07[facility] department NoteTXT1.2.840.689259.1.13.104.2.7. 2.446498|[id number] for patient djiq24446-0VojxKMHSPZMRDBOUmqttrcgd C-CDA narrative ufvw217635923Rbvbzq J Hoot [id number] 4TZPUUTVFXWYGAWWURMDCQO4812-28-62D4 1:44:071.2.840.761311.1.72.3.15|1.2 .840.167400.1.13.104.2.7.2.727879_2 [id number] Angy Turner [facility] 2024-02-17 21:42:10 QrOkArcBzAg4hMW7I5Z3WxAbbk3i4UmAWzd S3aPR5ku4LcE2v38yosiADd0yjBCI7490-6 02-16T21:42:10 Pt's blood pressure cuff and pulse ox found lying on chair. Called for patient in lobby 2 times, no answer. No one in lobby. 04196-3Kkeetaqvg department ZyevMF8576-36-40O40:44:10[facility] NoteTXT1.2.840.026074.1.13.104.2.7. 2.775896|6077142644GQPuhyutwzl for patient ewxa17188-2PpbpXJLGLJKIVQIVsjdxyike C-CDA narrative kvhm743787643Remwz A. Campbell RN[id number] 4TWEGDPJTUVENOWKMUTAINK6501-81-01I3 1:44:101.2.840.473093.1.72.3.15|1.2 .840.477031.1.13.104.2.7.2.727879_2 [id number] Sierra Samaniego RN [facility] 2024-02-17 21:41:09 R6DADEJB+pZou1Xe1javhNliiWwTUSql+IW vOAq7m74OBtk5u3BFTTiNtR0EIcx42052-9 02-16T21:41:09 Pt not in lobby or in room. No answer in lobby. 29612-6Bmejlngur department JkvhLV5068-59-26S23:41:40[facility] NoteTXT1.2.840.349626.1.13.104.2.7. 2.561292|6661385212DESyncyebfg for patient ctlu35703-7IapxLKXIXIABNLYDythtvrgb C-CDA narrative text[address] RbyjTflwtbvbjAfsacuccnSGWM781716511 2SKQLJLGADHNHTWRDVYGIKJ9711-42-44T6 1:41:401.2.840.862265.1.72.3.15|1.2 .840.086491.1.13.104.2.7.2.727879_2 [id number] [facility] 2024-02-17 21:14:29 SJo1Xg4gOIYF2Z31JK0Rqom6UuANLR5vDsk Q+YPIjW0FItTyH6saN5gSis/KLYeb7018-3 02-16T21:14:29 Pt not in FT01- and no answer in lobby. 68495-7Tabeiwlgx department AylsZG9287-54-10V52:15:32[facility] NoteTXT1.2.840.587684.1.13.104.2.7. 2.895243|7718809118SUNjibhwxej for patient lfhg25398-0FhelGFWGZMIBVNUAdxhyvpmm C-CDA narrative textUT[address] [id number] 3VOIJDWRVWETIGORSEIYDIO8358-21-62H0 1:15:321.2.840.821341.1.72.3.15|1.2 .840.994845.1.13.104.2.7.2.727879_2 [id number] [facility] 2024-02-17 20:48:50 0uG11vDhMAlEu8LASGzppKwvZ8lyIEV6B2O WWp9RpzyEk8DKUG/JJ1/wx3NSYN6i4245-4 02-16T20:48:50 Pt arrives ambulatory to ED c/o SOB, right upper abdominal pain, and left leg and hip pain. Pt states that he has been on prednisone for about 5 yrs which had given him osteoporosis which is causing his leg pain. Reports hx of COPD, o2 is generally @ 91 he says. 76241-9Edlgwiweg department Triage ominHI0611-60-21U42:53:54[facility] department Triage noteTXT1.2.840.098348.1.13.104.2.7. 2.034390|6499626611FCLiepfngaa for patient ncgd37535-5Ozojrhekb department NoteLNNARRATIVEFormatted C-CDA narrative dfhv406708308Joqjmi L Williams RNUT[address] [id number] 6GFSZCAKWJYTVXQYVEVPHPL7898-88-93A5 0:53:541.2.840.615572.1.72.3.15|1.2 .840.650462.1.13.104.2.7.2.727879_2 [id number] Leah Lizama RN [facility] 2024-02-08 21:37:56 ZIdjQqVO47lav2zdujFtlxE48Y+ZlkfFHgJ le/HOn0VT2SKRC2+V70V+vj6T3+bq6252-2 02-07T21:37:56 Pt left AMA 64245-3Jowzyrvbd department HfmrLI4657-54-54M08:38:11[facility] department NoteTXT1.2.840.056073.1.13.104.2.7. 2.606958|4061184157XSWzhrfyhia for patient hhkq46658-6QbkmBQKLVNAJGSQDokbmkzow C-CDA narrative kgnv062421339VxrulKylie Foster RN[address] SyiyCdpxjtraeDbrqxnaimNYND587208355 6FGQIVZQKKOLHGHIYZDKGVC0491-30-81P7 1:38:111.2.840.877411.1.72.3.15|1.2 .840.798928.1.13.104.2.7.2.727879_2 [id number] Kylie Foster RN [facility] 2024-02-08 21:32:00 V096zLroSA/JhMUnrEIOhyvoapHWAN3MbwY 9g/N68RgJtEcgXY1UmUDKGVV4y5sE9766-6 02-07T21:32:00 Patient leaving AMA after self removing [...] ambulatory with steady gait, appears in NAD [address]-4Udpcnpiuc[address] KcpyMA8183-18-46P76:40:32[facility] NoteTXT1.2.840.482283.1.13.104.2.7. 2.423637|9685733960ROYxfsqvogi for patient gztc78154-1FnebURNBPAAMKSKYhnhiozto C-CDA narrative [id number] 1WWRBMQLXTMTKBDOUTPRUOL0559-05-64C4 1:40:321.2.840.391781.1.72.3.15|1.2 .840.352611.1.13.104.2.7.2.727879_2 [id number] [facility] 2024-02-08 20:54:38 uS96FrN+nU5Ji6zL5xsXEcCf/bCPCdxwEFA XtfQfkuCOcbiTZSJUmz2Fg7Lc3Fde6664-3 02-07T20:54:38 Pt states he uses O2 at home, portable O2 is broken [address]-6Rcovhzchg[address] UbzaXF0983-38-53B85:55:13[facility] NoteTXT1.2.840.777521.1.13.104.2.7. 2.681534|4307938124IDIrdrdgyeq for patient bkun03907-2OjfbSQWPXVSFCUCWsbkxbztj C-CDA narrative [id number] 3UGWBVTLWPYWYFWREJIFTCQ9196-30-33D2 0:55:131.2.840.662201.1.72.3.15|1.2 .840.578048.1.13.104.2.7.2.727879_2 [id number] [facility] 2024-02-08 20:51:11 el/w2YTNZ+pSjyJopKdjfTae14PZ/x7DhYW 28bfOl9iIo8cxmrI0huOjGk+67pGf9436-9 02-07T20:51:11 Pt ambulates with cane 57901-1Msdysfnlx department RyefYW0502-42-30P28:51:26[facility] department NoteTXT1.2.840.728334.1.13.104.2.7. 2.435707|5281623441PKRjpaiqsbc for patient qlto22043-7AyvjYWYNKUDLTQATuvmoomez C-CDA narrative textUT[address] ZhviJsnkjcctwIyprcggcgMWXT478076856 0EKHOEOWYLIYQCZEMOPQQRA3255-54-27X1 0:51:261.2.840.888306.1.72.3.15|1.2 .840.715246.1.13.104.2.7.2.727879_2 [id number] [facility] 2024-02-08 20:43:13 6FedjlizXWdKiWUUlP931uC/9GbsgI+2tFK wSCRRa/jxCVb/9ffxnwQNTmp/wVZg0965-1 02-07T20:43:13 CC: Pt arrives SOB after leaving AMA earlier in the shift. He reports he [...] 3 BC powders and drank 3 beers." 73132-6Qufewnech department Triage byueVZ6970-49-46L73:48:36[facility] Triage noteTXT1.2.840.709367.1.13.104.2.7. 2.910748|9535603590INNicjvclfm for patient oaoa46629-5Ztnxbecnk department NoteLNNARRATIVEFormatted C-CDA narrative mslx419952136Biqbei R Shehadeh RN[address] KeqcIspvgismsRaavzilywIVWU939715958 8KTAUCOUAMYXPWARKMXILRT2990-29-44L0 0:48:361.2.840.163471.1.72.3.15|1.2 .840.850448.1.13.104.2.7.2.727879_2 [id number] Leah King RN [facility] 2024-02-08 17:04:05 c4Aemps+dZx6JjUVNWqTRELurPgJE7zt5W+ vXQOnp/Gafi/Hp2OaMe0AYLp6LqAi6981-0 7:04:05 Patient walked to the nurses station and stated "I have another emergency and I have to leave right now. I need this IV taken out immediately."Encouraged patient to stay and he stated "I have to leave immediately and I don't want to take this out myself" IV d/c at this time and patient ambulated out of the department with a steady gait. 15986-5Nxahbcjcw department OkkbBG0549-29-10J09:05:22[facility] NoteTXT1.2.840.050952.1.13.104.2.7. 2.676998|2605402737XGUuvomtcxw for patient stcy63039-3NlxzRLRNSQCMSVJQstepmwpg C-CDA narrative jeed738918513Grnf M Hayes RN[id number] 8ZQAHTJHNLWFWOTMTEUYTOX4198-43-95A7 7:05:221.2.840.322598.1.72.3.15|1.2 .840.077808.1.13.104.2.7.2.727879_2 [id number] Allison Raul Zhang RN [facility] 2024-02-08 14:23:02 mqgtmkTocfCyvWtV6n9fuRb3bN6B/Z3pRfm uswrhKjDYJwQ/rZhFvbAy1NhIcfGd3057-9 02-07T14:23:02 Pt ambulates with a cane 13779-8Ajpmygntf department YsqdRN9008-05-36W78:23:12Emergency department NoteTXT1.2.840.053426.1.13.104.2.7. 2.524551|9200799163OXYbunkdaeh for patient guaf94710-3DmkwBVJJWIWNFOWJnzpophpt C-CDA narrative eznf239954520UxubwKylie Foster RN[id number] 7FKSNZOYYPFZYHILUOLQDHV9168-18-77J1 4:23:121.2.840.061399.1.72.3.15|1.2 .840.940182.1.13.104.2.7.2.727879_2 [id number] Kylie Foster RN [facility] 2024-02-08 14:13:15 D2t175/03WcVY4Nr6ezhyuvEbzKBaUlTfqk HLodogBY1WL9X9DpJEx5TWnivHEKq1832-6 4:13:15 Pt has taken 8-packets of BC [...] only thing that helps." Face is flushed. 20237-6Bbpkxvlnk department Triage wcbjHZ8114-11-25U10:17:26[facility] Triage noteTXT1.2.840.876194.1.13.104.2.7. 2.802663|7149506741VJXrduknxlg for patient ejkb43335-3Cytmbjtvk department NoteLNNARRATIVEFormatted C-CDA narrative bmhq829342251Czvpweg Fief RNUT[address] QtpiNmurgllksGbzdobmtlLFLB701523591 9HTCWFNZKFVMIGMZGXBYRXY8766-57-14X7 4:17:261.2.840.973023.1.72.3.15|1.2 .840.875069.1.13.104.2.7.2.727879_2 [id number] Hali Aviles RN [facility] 2024-01-14 06:16:25 7Xik7OfkOf6Yt5j7qeVKIvm5Tg6R/FhSiR0 ED9aTN5jpaenTgs+dJaR3lOnlsfBw7129-3 06:16:25 Pt given printed and verbal discharge [...] w/d, pt leaving in no apparent distress, 94199-7Hybagihfp department ZtghKC2955-31-72Q32:17:20[facility] department NoteTXT1.2.840.076916.1.13.104.2.7. 2.131512|8191690153SJFabiwsglq for patient tiem85526-4ZwyfLZLGMZYPHZVEmekwfeez C-CDA narrative textUT[address] DfcvAfrucyoniSgjjcmqmyOYFB104824356 5UELDIKLRBSKFGMYIUCDTMT5296-27-37J9 6:17:201.2.840.193963.1.72.3.15|1.2 .840.729082.1.13.104.2.7.2.727879_2 [id number] [facility] 2024-01-14 04:49:43 g0FTqaeZQAnSx9q2mpD6TEHyih1Wp+E0JFo 2l7PH3cYa8ktiZFmiTbbDl9ooRxLj4740-4 04:49:43 CC: "My COPD is acting up [...] ext without difficulty, amb with steady gait 23949-7Ubxcftbdl department Triage jyzyZM5811-59-45K17:55:49[facility] department Triage noteTXT1.2.840.517708.1.13.104.2.7. 2.056637|3689349664FKUnafrvxpw for patient gkbm82775-9Qkpqawvlv department NoteLNNARRATIVEFormatted C-CDA narrative funs478130424Dqaeqs R Shehadeh RN[address] JrqaCrblluauqGfiwyqykbPQYD767742213 9GMZUFODOCAQQPUJTPPTKJY8475-51-55F4 4:55:491.2.840.829493.1.72.3.15|1.2 .840.667883.1.13.104.2.7.2.727879_2 [id number] Leah King RN [facility] 2024-01-14 04:43:00 Bju46hfcC0buDTgStlJnj5a2TtObup1K8xd djsmrB+2mge6RhagnsnXx34xWs3j/04:43:00Associated Order(s): EKG-12 Lead ROUTINE ONCEPre-Procedure Diagnose(s): Chest pain, unspecified typePost-Procedure Diagnose(s): Chest pain, unspecified type [facility] Emergency Department NotePatient Name: Randy BrionesDate of : 1970 53 year old maleTreatment Room: TX1/UP7Kszhqua Record Number: [id number] Care Physician: Adrianna King Escorted by: Family [5]Mode of Arrival: Personal means [1]EMS Treatment Prior to ED Arrival:CLOTH NEUTRALIZER treatment: NTGPTA treatment comments: 0.4 mg SL taken CLOTH NEUTRALIZER, no releifTravel and Exposure Screening:SymptomsDoes patient have [...] Negative.Neurological: Negative.Psychiatric/Behavioral: Negative.Endocrine: Endocrine negativePhysical Exam:[facility]24450 81.2 kg (179 lb)Actual or estimated [...] Resident: Max Nur Results:Lab ResultsCOMP. METABOLIC PANEL (83864) - AbnormalResult Value Ref RangeNA 138 135 [...] 49 (*) 13 - 40 U/LeGFR 93.3 mL/min/1.06s1JON WITH DIFF - AbnormalWBC 11.59 (*) 4.20 [...] 220 U/LCOVID-19 (ID NOW RAPID TESTING) - PvxmrkQODR-LcV-3 Rapid ID NOW Not Detected Not DetectedETHANOLALCOHOL 62 mg/dLEKG:If EKG completed, see Procedure Note.Orders and Treatments:Orders Placed This EncounterProcedures XR CHEST 1 VW TROPONIN I COMP. METABOLIC PANEL (74795) LIPASE, SERUM CBC WITH DIFF N-Terminal Pro-Bnp Ethanol COVID-19 (ID NOW TESTING) Lab Only COVID Interpretation O2 Per ProtocolOrders Placed This EncounterMedications morpHINE (4 mg/mL) injection 4 mg ondansetron (ZOFRAN (PF)) injection 4 mg ipratropium-albuteroL (DUONEB) 0.5 mg-3 mg(2.5 mg base)/3 mL nebulizer solution 3 mLFirst Provider Eval:ED EventsDate/Time Event User Jnpvogpj78/07/24 0510 Medical Screening Begins JAC NAVARRO MD --01/14/24 0510 First Provider Evaluation JAC NAVARRO MD --ED COURSEDiagnosis/Impression as of 01/14/24 0605Chest pain, unspecified typeBronchitisProcedures:EKG-12 Lead ROUTINE ONCEDate/Time: 01/14/2024 5:24 AMPerformed by: Jac Navarro MDAuthorized by: Jac Navarro MDECG interpreted by ED Physician in the absence of a tablet machine operator: yesPrevious ECG:Previous ECG: Compared to currentSimilarity: No [...] on fileFollow-up:Electronically signed by:Jac Navarro MD01/14/24 0600 96811-2Sqtjjnfsv Emergency department JrbxDN9144-19-51Z05:00:50[facility] department NoteTXT1.2.840.241277.1.13.104.2.7. 2.919670|[id number] for patient wenk03370-4Nqfhhxknl department NoteLNNARRATIVEFormatted C-CDA narrative textUT[address] Pd[id number] 7APOGUPDOADCPUPISXZRNVA8694-86-43T7 6:00:501.2.840.059458.1.72.3.15|1.2 .840.014634.1.13.104.2.7.2.727879_2 [id number] [facility] 2023-12-22 23:12:16 OfR1+zlPkuJuyN6IBnEB9sdQIum1VnPDsK7 nOCsHbppeMTIwUlVf86r0PnPcx5gE6157-9 12-22T23:12:16 Pt given printed and verbal discharge [...] with steady gait, in no apparent distress, 99764-2Pikhwwlqm department ZmniIJ3454-16-42K84:13:50[facility] NoteTXT1.2.840.403077.1.13.104.2.7. 2.544002|8403226118KSFjycwrvxl for patient nlqi93262-7BkvmJOOCXINBKWCXjowmpjad C-CDA narrative atgf571466313Ldlxt E Gómez MACHUCA[id number] 8YQNEXRSNKNFIQVYQPSAZFP6883-05-36S8 3:13:501.2.840.803846.1.72.3.15|1.2 .840.287453.1.13.104.2.7.2.727879_2 [id number] Mary Juan Alberto Magaña RN [facility] 2023-12-22 21:41:55 hSLsD1IrmR23PpZmpabuhHXeTIBVXMpiEKz kRHUDQnffhkWiqSbkp5u+8+SSN4I96865-7 12-22T21:41:55 Pt arrives ambulatory to ED reporting bleeding with stools and 10/10 abdominal pain. States he was here last night but had to leave before receiving results d/t having to work. Says the pain became worse so he came back in. 72867-6Iqpfhwlzc department Triage vzgeST5868-50-74H17:48:52[facility] Triage noteTXT1.2.840.642092.1.13.104.2.7. 2.550376|8731256643JHKxehtarkq for patient yiek15957-5Lctefydby department NoteLNNARRATIVEFormatted C-CDA narrative fbkh222890167Jkxopn L Williams RN[id number] 3HJDUYUCTENCVPDKOWDSOHR7987-52-95S4 1:48:521.2.840.667713.1.72.3.15|1.2 .840.210112.1.13.104.2.7.2.727879_2 [id number] Leah L Dl MACHUCA [facility] 2023-12-21 21:31:00 Ym9HaEyCC+y8QdT7yF/LR6Z4Yrkr10Dv3v5 11zog+WNoQGXAY8T+mak9Nc8t3z1Q7611-9 12-21T21:31:00 Patient leaving AMA,discussed risks of leaving against medical advice, Dr. Maciel aware and notified of patient's decision.Patient encouraged to seek medical attention for any new/prolonged/worsening of symptoms and stressed importance of follow up with a medical provider as soon as possible. AMA form explained, patient signed form.IV d'cd, dressing to site.Patient leaving ambulatory with steady gait, appears in no distress. 99376-6Etyxibdmv department DhncCK8369-20-93V28:38:39[facility] department NoteTXT1.2.840.147621.1.13.104.2.7. 2.125639|2661911680KSYknxvuugd for patient yriu00608-3YcheZCDZDRHEODNOympykrog C-CDA narrative egut720189698QlajwMary Magaña RN[address] StreetOmqyUarcrifepGsbjyucpkYLNG282077977 0AIUPVWFQGQPQVRSRNZSETO0153-67-40T0 1:38:391.2.840.789690.1.72.3.15|1.2 .840.504697.1.13.104.2.7.2.727879_2 [id number] Mary Magaña RN [facility] 2023-12-21 21:30:00 5Pw6Kf+KlvY9HIW60vdwqYjtOrCkWKELkor 1x3LR+ogFCF9lK5BV63eSF/deTfzN6322-5 12-21T21:30:00 Pt wished to leave AMA. Pt states " yall were wonderful but 3am come real early." 43713-4Rigqabzzb department TkhcGX0926-65-18T70:36:58[facility] department NoteTXT1.2.840.655801.1.13.104.2.7. 2.704431|2040900925ABHwxvraaqz for patient ttdc80130-8QiozSYIBGKNYEBRWtyepivzl C-CDA narrative text[id number] 1IKWGHDATSTUXRQBGZWHWSM1000-32-43E4 1:36:581.2.840.022444.1.72.3.15|1.2 .840.790946.1.13.104.2.7.2.727879_2 [id number] [facility] 2023-12-21 21:26:22 IGlihSePvoVxyqXV2o9KhItXuTVQchiQnIO 6FENaX6gUYn1uny2ENhBC3d8NvIre5737-1 12-21T21:26:22 Pt asking to go outside and smoke, wants to go home and eat. Pt educated on risks of leaving AMA. Provider informed pt is in pain. 13934-6Mrsnkdjnz department UybaAF9871-43-23G59:33:35[facility] department NoteTXT1.2.840.358850.1.13.104.2.7. 2.255156|[id number] for patient pgxy52520-1RcswHBMUJTJTYZVTmwwrezzv C-CDA narrative [id number] R Shehadeh RNUT[id number] 0GQDIMHWAFZKBNGWNXUVAOX7212-41-91Y9 1:33:351.2.840.338308.1.72.3.15|1.2 .840.834240.1.13.104.2.7.2.727879_2 [id number] Leah King RN [facility] 2023-12-21 19:31:50 7ux9+5gsTLb3DwmkY7wTL5oSWbLBc3mMiih NlFIslO4jtTgNm4bUoOIv2ot+YWpS1272-8 12-21T19:31:50 Pt arrived ambulatory with complaints of bright red rectal bleeding and generalized abdominal pain this afternoon. Pt states his stool was normal consistency but continuous bright red blood. Denies this happening before.Pt is an alcoholic, had 2 beer [employer]. States he vomits all the time but not something new today. 16307-5Mkzouxgwq department Triage vrdhLK9960-85-05Y44:33:28[facility] Triage noteTXT1.2.840.302214.1.13.104.2.7. 2.596082|[id number] for patient pira27753-4Hstcyacox department NoteLNNARRATIVEFormatted C-CDA narrative [id number] D Roman RN[address] Si[id number] 0CHNFWWXNFKLEVFBDGTFKAE2517-33-19C7 9:33:281.2.840.603188.1.72.3.15|1.2 .840.854276.1.13.104.2.7.2.727879_2 [id number] Gabi Esqueda RN [facility] 2023-11-10 20:13:39 hyZgrOZRYe7OvgFZADv7KycX39d/TlPnCn4 [facility]/CT956lI8SSuCfTGh0rueSKukR6376-1 11-10T20:13:39 Pt requesting to leave AMA. ERP notified. Pt counseled to remain, risks of leaving AMA including discussed with pt. Pt continued to decline further ER evaluation at this time. AMA papers signed, witnessed, and placed on patient's chart. Pt left ambulatory. VS stable, no ataxia noted, GCS 15, A&Ox4. 28262-8Gxcieuczq department XyahXU6542-32-20Q93:13:52[facility] NoteTXT1.2.840.919791.1.13.104.2.7. 2.915926|[id number] for patient hohg05677-6UleqKDHZPPNQKNLVfdrmrebp C-CDA narrative [id number] Medrano RN[address]Dj[id number] 9IQGQICLZLSNZXCBQSEIBHO0073-57-35J0 0:13:521.2.840.261936.1.72.3.15|1.2 .840.629409.1.13.104.2.7.2.727879_1 [id number] Briseida Medrano RN [facility] 2023-11-10 19:30:29 o2Or5/JvW8h1O1cgd+7HHtdmVtxF/EYpEtf UCMPjlW6TCwZ/hvDh50jMa8AQ3s3o9633-9 11-10T19:30:29 Patient arrived to ED c/o SOB and COPD exacerbation. Symptoms started this morning. Patient wears 3L NC at home. Patient is a smoker. Patient states having the chills, diarrhea, and vomiting. States having sharp pains in chest from coughing. 09214-8Gqwgepsjv department Triage kfteMM6107-34-31H14:35:27[facility] Triage noteTXT1.2.840.691741.1.13.104.2.7. 2.074481|[id number] for patient gxpv91952-3Rtrkqfevg department NoteLNNARRATIVEFormatted C-CDA narrative [id number]-Jiuwp McInnis RNUT[address] Fj[id number] 2LMDZZQXFLWFIARNWPEZTPY0424-93-45J2 9:35:271.2.840.248317.1.72.3.15|1.2 .840.678190.1.13.104.2.7.2.727879_1 [id number] Sreedhar Gomez RN [facility]
[2024-04-03 23:29] LABS: Absolute Lymphocytes (CBC) 3.5 K/uL (0.7-4.9); Absolute Monocytes 0.8 K/uL (0.1-1.3); Absolute Neutrophil 5.6 K/uL (1.8-8.0); Basophils % 0.2 % (0-1.3); Eosinophils % 0.4 % (0-4.4); Hematocrit 38.2 % (39.6-49.0); Hemoglobin 12.8 g/dL (13.6-17.9); MCH 32.8 pg (27.0-35.0); MCHC 33.5 g/dL (32.0-36.0); MCV 98.2 fL (80-100); MPV 6.8 fL (7.6-11.3); Monocytes % 7.8 % (3.3-12.3); Neutrophils % 56.6 % (41.7-73.7); Platelets 318 thou/uL (152-406); RBC Red Blood Cell Count 3.89 M/uL (4.33-5.43); Red Cell Distribution Width 15.5 % (12.1-15.2)
[2024-04-03 23:42] LABS: Anion Gap 10.7 mEq/L (5.0-15.0); Potassium 3.7 mEq/L (3.5-5.1); Troponin High Sensitivity 5.4 pg/mL (<58.9)
[2024-04-03] MEDS ORDERED: METHYLPREDNISOLONE 125 MG INJ ONE (23:52)
[2024-04-03] MEDS ORDERED: MORPHINE 4 MG/ML SYR ONE (23:52)
[2024-04-03] MEDS ORDERED: ONDANSETRON 4 MG/2 ML VIAL ONE (23:52)
--- NOTE | 2024-04-04 00:59 | ER ---
Nurse's Notes [facility] Name: Randy Briones Age: 53 yrs Sex: Male : 1970 Arrival Date: 04/03/2024 Time: 22:42 Bed 17 Private MD: Diagnosis: Pneumonia, unspecified organism Presentation: 04/03 22:57 Chief complaint: Patient states: SOB X2 HR. pain all over. Coronavirus screen: Client lg3 denies travel out of the [place] in the last 14 days. At this time, the client does not indicate any symptoms associated with coronavirus-19. Ebola Screen: No symptoms or risks identified at this time. Initial Sepsis Screen: Does the patient meet any 2 criteria? No. Patient's initial sepsis screen is negative. Does the patient have a suspected source of infection? No. Patient's initial sepsis screen is negative. Risk Assessment: Do you want to hurt yourself or someone else? Patient reports no desire to harm self or others. Onset of symptoms is unknown. 22:57 Method Of Arrival: EMS: [facility] 3 22:57 Acuity: CANDACE 3 lg3 Triage Assessment: 22:58 General: Appears in no apparent distress. Behavior is cooperative, fussy. Pain: lg3 Complains of pain in all over. EENT: No deficits noted. No signs and/or symptoms were reported regarding the EENT system. Neuro: No deficits noted. Macario Agitation-Sedation Scale (RASS): 0 - Alert and Calm Level of Consciousness is awake, alert, obeys commands, Oriented to person, place, time, situation. Cardiovascular: No deficits noted. Reports chest pain, shortness of breath, Heart tones S1 S2 present Capillary refill < 3 seconds Clubbing of nail beds is absent JVD is absent Patient's skin is warm and dry. Respiratory: Airway is patent Respiratory effort is even, Respiratory pattern is tachypnea. GI: No deficits noted. No signs and/or symptoms were reported involving the gastrointestinal system. Abdomen is round non-distended, obese. : No deficits noted. No signs and/or symptoms were reported regarding the genitourinary system. Derm: No deficits noted. No signs and/or symptoms reported regarding the dermatologic system. Skin is intact, is healthy with good turgor, Skin is dry, Skin is normal, Skin temperature is warm. Musculoskeletal: No deficits noted. Circulation, motion, and sensation intact. Range of motion: intact in all extremities. Historical: - Allergies: 22:58 Lisinopril; lg3 - PMHx: 22:58 Alcoholism; COPD; Hepatitis B (Hypertension); home 02 3LNC PRN; Hypertension; lg3 Osteoporosis; - PSHx: 22:58 Amputation of left index finger; lg3 - Immunization history:: Adult Immunizations up to date, Client reports receiving the 2nd dose of the Covid vaccine. - Infectious Disease History:: Denies. - Social history:: Smoking status: Patient reports the use of cigarette tobacco products, smokes three packs cigarettes per day. Patient uses alcohol, patient/guardian reports chronic longstanding heavy alcohol consumption. Screenin/27 02:30 [facility] ED Fall Risk Assessment (Adult) History of falling in the last 3 months, eb1 including since admission Yes- single mechanical fall (1 pt). Abuse screen: Denies threats or abuse. Denies injuries from another. Nutritional screening: No deficits noted. Tuberculosis screening: No symptoms or risk factors identified. Assessment: 00:00 General: Appears in no apparent distress. comfortable, unkempt, well developed, well eb1 nourished, Behavior is calm, cooperative, appropriate for age, Smells of alcohol. Pain: Complains of pain in back and chest. Neuro: No deficits noted. Cardiovascular: No deficits noted. Respiratory: No deficits noted. GI: No deficits noted. No signs and/or symptoms were reported involving the gastrointestinal system. : No deficits noted. No signs and/or symptoms were reported regarding the genitourinary system. EENT: No deficits noted. No signs and/or symptoms were reported regarding the EENT system. Derm: No deficits noted. No signs and/or symptoms reported regarding the dermatologic system. Musculoskeletal: No deficits noted. No signs and/or symptoms reported regarding the musculoskeletal system. 00:45 Reassessment: Patient appears in no apparent distress at this time. No changes from eb1 previously documented assessment. Patient and/or family updated on plan of care and expected duration. Pain level reassessed. 02:00 Reassessment: Patient appears in no apparent distress at this time. No changes from eb1 previously documented assessment. Patient and/or family updated on plan of care and expected duration. Pain level reassessed. Vital Signs: 04/03 22:57 BP 138 / 91; Pulse 99; Resp 24 S; Temp 98.1(O); Pulse Ox 97% on R/A; Weight 79.38 kg lg3 (R); Height 5 ft. 4 in. (R); 04/04 00:30 BP 155 / 80; Pulse 70; Resp 20; Temp 97; Pulse Ox 94% 5 lpm ; Pain 8/10; eb1 02:00 BP 158 / 79; Pulse 86; Resp 20; Temp 96.9; Pulse Ox 95% ; FiO2 5 %; Pain 8/10; eb1 04/03 22:57 Body Mass Index 30.04 (79.38 kg, 162.56 cm) lg3 04/04 00:30 Pain Scale: Adult eb1 02:00 Pain Scale: Adult eb1 ED Course: 04/03 22:47 Patient arrived in ED. rv1 22:50 [facility] kb 22:50 Roberto Song MD is Attending Physician. kb 22:58 Triage completed. lg3 22:58 Arm band placed on right wrist. lg3 23:00 Maintain EMS IV. Dressing intact. Good blood return noted. Site clean \T\ dry. Gauge \T\ lg 3 site: 20R wrist. 23:10 Basic Metabolic Panel Sent. rv1 23:10 CBC with Diff Sent. rv1 23:10 Troponin HS Sent. rv1 23:40 XRAY Chest (1 view) In Process Unspecified. EDMS 04/04 00:58 Jacob Starr MD is Hospitalizing Provider. kb 02:21 Comprehensive Metabolic Panel Sent. eb1 02:21 CBC with Automated Diff Sent. eb1 02:21 CBC with Automated Diff Sent. eb1 02:21 Comprehensive Metabolic Panel Sent. eb1 02:27 Urinalysis w/ reflexes Sent. eb1 02:30 Patient has correct armband on for positive identification. Bed in low position. Call eb1 light in reach. 02:30 No provider procedures requiring assistance completed. eb1 03:06 Patient admitted, IV remains in place. eb1 Administered Medications: 04/03 23:58 Drug: MethylPrednisoLONE IVP 125 mg IVP once Route: IVP; Site: right hand; tl4 04/04 02:27 Follow up: Response: No adverse reaction eb1 04/03 23:58 Drug: morphine IVP or IV 4 mg IVP once over 4 mins Route: IVP; Infused Over: 4 mins; tl4 Site: right hand; 04/04 02:27 Follow up: Response: Pain is decreased eb1 04/03 23:58 Drug: Ondansetron IVP 4 mg IVP once; over 2 minutes Route: IVP; Site: right hand; tl4 04/04 02:27 Follow up: Response: Nausea is decreased eb1 01:23 Drug: hydrOXYzine PO 25 mg PO once Route: PO; eb1 02:27 Follow up: Response: No adverse reaction eb1 02:04 Drug: Rocephin IV 1 grams IV at calculated rate once; Given slow IV push per pharmacy eb1 instructions Route: IV; Rate: calculated rate; Site: right hand; 02:04 Drug: Zithromax IVPB 500 mg IVPB once over 1 hrs; mix in 250 mL NS Route: IVPB; Infused eb1 Over: 1 hrs; Site: right hand; Medication: 02:31 VIS not applicable for this client. eb1 Outcome: 00:59 Decision to Hospitalize by Provider. kb 02:30 Condition: good eb1 02:30 Instructed on the need for admit, 03:06 Admitted to Med/surg accompanied by nurse, via wheelchair, with oxygen, eb1 03:07 Patient left the ED. eb1 Signatures: Dispatcher [employer] EDPricilla Miller, SERGIO-Naomi HILL-Elizabeth Oropeza RN RN eb1 Katherine Arauz RN RN lg3 Sherin Mitchell 1 Kapil Tsang RN RN tl4
--- NOTE | 2024-04-04 00:59 | EDPHYS ---
Physician Documentation [facility] Name: Randy Briones Age: 53 yrs Sex: Male : 1970 Arrival Date: 04/03/2024 Time: 22:42 Bed 17 Private MD: ED Physician Roberto Song HPI: 04/04 00:57 This 53 yrs old Male presents to ER via EMS with complaints of shortness of breath, kb chest pain. 00:57 Patient is a 53-year-old male who presents for chest pain and shortness of breath that kb started a few hours ago. Denies fever. No aggravating or alleviating factors. Historical: - Allergies: 04/03 22:58 Lisinopril; lg3 - PMHx: 22:58 Alcoholism; COPD; Hepatitis B (Hypertension); home 02 3LNC PRN; Hypertension; lg3 Osteoporosis; - PSHx: 22:58 Amputation of left index finger; lg3 - Immunization history:: Adult Immunizations up to date, Client reports receiving the 2nd dose of the Covid vaccine. - Infectious Disease History:: Denies. - Social history:: Smoking status: Patient reports the use of cigarette tobacco products, smokes three packs cigarettes per day. Patient uses alcohol, patient/guardian reports chronic longstanding heavy alcohol consumption. ROS: 04/04 00:51 Constitutional: As per HPI kb Exam: 00:51 Constitutional: This is a well developed, well nourished patient who is awake, alert, kb and in no acute distress. Head/Face: Normocephalic, atraumatic. ENT: Moist Mucous membranes Cardiovascular: Tachycardic rate Abdomen/GI: Soft, non-tender. No distention Skin: Warm, dry with normal turgor. Normal color. MS/ Extremity: Pulses equal, no cyanosis. Neurovascular intact. Full, normal range of motion. Neuro: Awake and alert, GCS 15, oriented to person, place, time, and situation. Moves all extremities. Normal gait. 00:51 ECG was reviewed by the Attending Physician. 00:51 Respiratory: moderate respiratory distress is noted, Respirations: labored breathing, that is mild, Breath sounds: are clear throughout, Vital Signs: 04/03 22:57 BP 138 / 91; Pulse 99; Resp 24 S; Temp 98.1(O); Pulse Ox 97% on R/A; Weight 79.38 kg lg3 (R); Height 5 ft. 4 in. (R); 04/04 00:30 BP 155 / 80; Pulse 70; Resp 20; Temp 97; Pulse Ox 94% 5 lpm ; Pain 8/10; eb1 02:00 BP 158 / 79; Pulse 86; Resp 20; Temp 96.9; Pulse Ox 95% ; FiO2 5 %; Pain 8/10; eb1 04/03 22:57 Body Mass Index 30.04 (79.38 kg, 162.56 cm) lg3 04/04 00:30 Pain Scale: Adult eb1 02:00 Pain Scale: Adult eb1 MDM: 04/03 22:50 Patient medically screened. kb 04/04 00:52 Differential diagnosis: Bronchitis Chronic Obstructive Pulmonary Disease Myocardial kb Infarction pneumonia. Data reviewed: vital signs, nurses notes. Consideration of Admission/Observation Patient was admitted/placed on observation. Escalation of care including admission/observation considered. Management of patient was discussed with the following: Hospitalist: Dr Starr accepts pt for admission. 00:52 Historians other than the Patient: EMS: [facility]. Counseling: I had a detailed kb discussion with the patient and/or guardian regarding the historical points, exam findings, and any diagnostic results supporting the discharge/admit diagnosis, lab results, radiology results, the need for further work-up and treatment in the hospital. 04/03 22:59 Order name: Basic Metabolic Panel; Complete Time: 23:53 kb 04/03 22:59 Order name: CBC with Diff; Complete Time: 23:53 kb 04/03 22:59 Order name: Troponin HS; Complete Time: 23:53 kb 04/04 00:30 Order name: Blood Culture Adult (2) kb 04/04 00:30 Order name: Lactate w/ 2H reflex if indic.; Complete Time: 01:38 kb 04/04 00:30 Order name: Protime (+inr); Complete Time: 01:38 kb 04/04 00:30 Order name: Ptt, Activated; Complete Time: 01:38 kb 04/04 00:30 Order name: LFT's; Complete Time: 01:38 kb 04/04 01:29 Order name: Urinalysis w/ reflexes EDMS 04/04 01:29 Order name: CBC with Automated Diff EDMS 04/04 01:29 Order name: CBC with Automated Diff EDMS 04/04 01:29 Order name: Comprehensive Metabolic Panel EDID 04/04 01:29 Order name: Comprehensive Metabolic Panel EDMS 04/03 22:59 Order name: XRAY Chest (1 view) kb 04/04 01:31 Order name: Chest For Pe Angio EDMS 04/03 22:59 Order name: EKG; Complete Time: 22:59 kb 04/03 22:59 Order name: Cardiac monitoring; Complete Time: 23:10 kb 04/03 22:59 Order name: EKG - Nurse/Tech; Complete Time: 23:00 kb 04/03 22:59 Order name: IV Saline Lock; Complete Time: 23:00 kb 04/03 22:59 Order name: Labs collected and sent; Complete Time: 23:10 kb 04/03 22:59 Order name: O2 Per Protocol; Complete Time: 23:00 kb 04/03 22:59 Order name: O2 Sat Monitoring; Complete Time: 23:00 kb 04/04 00:30 Order name: IV Saline Lock - Large Bore kb 04/04 00:30 Order name: Vital Signs kb EC:51 Rate is 96 beats/min. Rhythm is regular. QRS [place] is Normal. NV interval is normal at kb 140 msec. QRS interval is normal at 110 msec. QT interval is normal at 467 msec. Administered Medications: 04/03 23:58 Drug: MethylPrednisoLONE IVP 125 mg IVP once Route: IVP; Site: right hand; tl4 04/04 02:27 Follow up: Response: No adverse reaction eb1 04/03 23:58 Drug: morphine IVP or IV 4 mg IVP once over 4 mins Route: IVP; Infused Over: 4 mins; 4 Site: right hand; 04/04 02:27 Follow up: Response: Pain is decreased eb1 04/03 23:58 Drug: Ondansetron IVP 4 mg IVP once; over 2 minutes Route: IVP; Site: right hand; tl4 04/04 02:27 Follow up: Response: Nausea is decreased eb1 01:23 Drug: hydrOXYzine PO 25 mg PO once Route: PO; eb1 02:27 Follow up: Response: No adverse reaction eb1 02:04 Drug: Rocephin IV 1 grams IV at calculated rate once; Given slow IV push per pharmacy eb1 instructions Route: IV; Rate: calculated rate; Site: right hand; 02:04 Drug: Zithromax IVPB 500 mg IVPB once over 1 hrs; mix in 250 mL NS Route: IVPB; Infused eb1 Over: 1 hrs; Site: right hand; Disposition Summary: 04/04/24 00:59 Hospitalization Ordered Notes: Hospitalization Status: Observation kb Provider: Jacob Starr Location: Telemetry/MedSurg (observation) kb Condition: Stable kb Problem: new kb Symptoms: are unchanged kb Bed/Room Type: Standard Room Assignment: 229(04/04/24 01:34) kb3 Diagnosis - Pneumonia, unspecified organism kb Forms: - Medication Reconciliation Form kb - SBAR form kb - Leadership Thank You Letter kb Addendum: 04/05/2024 05:38 I was immediately available for consultation during this patient's visit. I did not e c2 personally see the patient or discuss the patient with the BRISSA. . Signatures: Dispatcher [employer] EDPricilla Miller, LASHANDA HILL-Elizabeth Oropeza RN RN eb1 Katherine Arauz RN RN lg3 Kylie Esquivel RN RN kb3 Roberto Song MD MD ec2 Kapil Tsang RN RN tl4 Corrections: (The following items were deleted from the chart) 04/04 01:34 00:59 kb kb3
[2024-04-04] MEDS ORDERED: hydrOXYzine HCL 25 MG TAB ONE (01:10)
[2024-04-04] MEDS ORDERED: CEFTRIAXONE 1000 MG/VIAL ONE (01:11)
[2024-04-04] MEDS ORDERED: AZITHROMYCIN 500 MG INJ IVPB ONE (01:11)
[2024-04-04] MEDS ORDERED: NA CHLORIDE 0.9% 50 ML ONE (01:17)
[2024-04-04] MEDS ORDERED: NA CHLORIDE 0.9% 250 ML ONE (01:17)
[2024-04-04 01:19] LABS: PT Prothrombin Time 9.1 SECONDS (9.5-12.5); PTT, Activated Partial Thromb 29.3 SECONDS (24.3-36.9); Protime INR 0.82
[2024-04-04] MEDS ORDERED: ACETAMINOPHEN 325 MG TABLET PO PRN (01:24)
[2024-04-04] MEDS ORDERED: ONDANSETRON 4 MG/2 ML VIAL IV PRN (01:24)
[2024-04-04 01:25] LABS: ALT/SGPT 20 U/L (16-61); Albumin 3.6 g/dL (3.4-5.0); Albumin/Globulin Ratio 1.1 (1.1-1.8); Alkaline Phosphatase 65 U/L (45-117); Bilirubin Total 0.3 mg/dL (0.2-1.0); Globulin 3.4 g/dL (2.3-3.5)
[2024-04-04 01:27] LABS: AST/SGOT < 10 U/L (15-37); Bilirubin Direct < 0.2 mg/dL (0-0.2); Bilirubin Indirect, Calculated 0.1 mg/dL (0.2-0.8)
--- NOTE | 2024-04-04 01:29 | P.HP ---
Certification for Inpatient Patient admitted to: Inpatient With expected LOS: >2 Midnights Practitioner: I am a practitioner with admitting privileges, knowledge of patient current condition, hospital course, and medical plan of care. Services: Services provided to patient in accordance with Admission requirements found in Title 42 Section 412.3 of the Code of Federal Regulations Patient History Date of Service: 04/04/24 Reason for admission: SOB History of Present Illness: 53 yrs old Male with past medical history of COPD, hepatitis B, hypertension, chronic hypoxic respiratory failure on 3 L nasal cannula as needed, with tuberculosis and history of alcoholism brought to ER with shortness of breath and chest discomfort which has been going on for the last 1 day and has been progressively worsening and was brought to ER. Patient also has subjective fever but no chills. Associated with cough with mucoid expectoration. Denies any nausea vomiting or diarrhea. Complains of chest discomfort associated with some shortness of breath. Chest discomfort is diffusely over the chest nonradiating not associated with any diaphoresis, at the time of interview patient does not have any chest pain. Patient was assessed in the ER and was found to be having pneumonia and hypoxia and was admitted for further management Allergies lisinopril Allergy (Verified 04/26/22 13:11) Shortness of breath BC powder Allergy (Mild, Uncoded 04/26/22 13:10) Hives Home medications list reviewed: Yes Home Medications: predniSONE [Prednisone*] 10 mg PO DAILY #30 tab 04/28/22 Budesonide/Formoterol Fumarate [Symbicort 160-4.5 Mcg Inhaler] 2 puff IH DAILY 06/23/23 Spironolactone [Aldactone*] 25 mg PO DAILY 06/23/23 Tiotropium [place] [Spiriva] 2 puff IH DAILY 06/23/23 Amlodipine [Norvasc*] 10 mg PO DAILY #30 tab 12/02/23 Hydrocodone 10/APAP 325 [[place] 10/325*] 1 tab PO Q6H PRN #30 tab 12/02/23 Multivit,Ther Iron,Ca,FA & Min [Centrum Tablet*] 1 tab PO DAILY #30 tab 12/02/23 Sucralfate [Carafate*] 1 gm PO ACHS #120 tab 12/02/23 - Past Medical/Surgical History Diabetic: No Past Medical History: Reviewed- Non-Contributory -: Hypertension -: COPD on chronic steroids/home O2 -: Tobacco abuse -: Alcohol abuse -: GERD -: Obesity -: BUD Past Surgical History: Reviewed- Non-Contributory -: 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 - Family History Family History: Reviewed- Non-Contributory - Family History Mother -: Diabetes, Cancer Notes: colon cancer Father -: Lung disease Notes: COPD - Social History Smoking Status: Current some day smoker Alcohol use: Yes CD- Drugs: No Caffeine use: Yes Review of Systems 10-point ROS is otherwise unremarkable Physical Examination - Vital Signs Temperature: 98.2 F Blood Pressure: 138/88 Pulse: 88 Respirations: 18 Pulse Ox (%): 93 - Physical Exam General: Alert, Oriented x3, Cooperative, Mild distress HEENT: Atraumatic, Normocephalic Neck: Supple, 2+ carotid pulse no bruit Respiratory: Normal air movement, Crackles/rales, Expiratory wheezes Cardiovascular: No edema, Normal pulses, Regular rate/rhythm, Normal S1 S2 Capillary refill: <2 Seconds Gastrointestinal: Soft and benign, W/out hepatosplenomegaly, No ascites Musculoskeletal: No clubbing, No swelling Integumentary: No rashes, No breakdown Neurological: Normal speech, Normal strength at 5/5 x4 extr, Cranial nerves 3-12 intact, Normal reflexes 2+ Lymphatics: No axilla or inguinal lymphadenopathy - Studies Laboratory Data (last 24 hrs) 04/04/24 04/04/24 04/03/24 00:52 00:52 23:08 WBC 10.00 Hgb 12.8 L Hct 38.2 L Plt Count 318 PT 9.1 L INR 0.82 APTT 29.3 Sodium Potassium BUN Creatinine Glucose Total Bilirubin 0.3 AST < 10 L ALT 20 Alkaline Phosphatase 65 04/03/24 23:08 WBC Hgb Hct Plt Count PT INR APTT Sodium 141 Potassium 3.7 BUN 8 Creatinine 0.58 L Glucose 91 Total Bilirubin AST ALT Alkaline Phosphatase Assessment and Plan - Problems (Diagnosis) (1) Pneumonia Current Visit: Yes Status: Acute Plan: Pneumonia Started on Rocephin and Zithromax Will obtain cultures Change antibiotic as per sensitivity Acute on chronic hypoxic respiratory failure Oxygen supplementation Will try to wean down oxygen requirement COPD exacerbation Continue bronchodilators and steroids Will obtain a CT of the chest Hypertension Antihypertensives titrated Continue home medications and titrate as needed Hyperlipidemia Continue statin Smoking Advise cessation Offered measures Counselled GI/DVT prophylaxis Advanced directive full code Qualifiers: Pneumonia type: due to unspecified organism Discharge Plan: Home Plan to discharge in: 48 Hours - Advance Directives Does patient have a Living Will: No Does patient have a Durable POA for Healthcare: No - Code Status/Comfort Care Code Status: Full Code Time Spent Managing Pts Care (In Minutes): 48
[2024-04-04] MEDS: ALBUTEROL 2.5 MG/3 ML NEB SOL NEB SCH (01:30)
[2024-04-04] MEDS: IPRATROPIUM BROM 0.5MG/2.5ML NEB SCH (01:30)
[2024-04-04] MEDS ORDERED: HYDROCODONE/APAP 10/325 TAB ONE (02:12)
[2024-04-04] MEDS: HYDROCODONE/APAP 10/325 TAB PO PRN (02:13)
[2024-04-04 02:35] LABS: Urine Bilirubin NEGATIVE (Negative); Urine Blood Negative (Negative); Urine Clarity Clear (Clear); Urine Color Colorless (Yellow); Urine Glucose NEGATIVE (Negative); Urine Ketones NEGATIVE (Negative); Urine Microscopic Reflex YN NO UMIC; Urine Nitrite NEGATIVE (Negative); Urine Protein NEGATIVE (Negative); Urine Urobilinogen Normal (Normal)
[2024-04-04] MEDS: METHYLPREDNISOLONE 40 MG INJ IV ONE (06:21)
--- NOTE | 2024-04-04 07:21 | P.PN ---
Subjective Date of Service: 04/04/24 Chief Complaint: SOB Admitted for shortness of breath, chest pain, history of COPD on 3 L at baseline, 98% on 5 L - Physical Exam General: Alert, Oriented x3, Cooperative, Mild distress HEENT: Atraumatic, Normocephalic Neck: Supple, 2+ carotid pulse no bruit Respiratory: Normal air movement, Crackles/rales, Expiratory wheezes Cardiovascular: No edema, Normal pulses, Regular rate/rhythm, Normal S1 S2 Capillary refill: <2 Seconds Gastrointestinal: Soft and benign, W/out hepatosplenomegaly, No ascites Musculoskeletal: No clubbing, No swelling Integumentary: No rashes, No breakdown Neurological: Normal speech, Normal strength at 5/5 x4 extr, Cranial nerves 3-12 intact, Normal reflexes 2+ Lymphatics: No axilla or inguinal lymphadenopathy Review of Systems Per HPI Physical Examination - Vital Signs Temperature: 98.2 F Blood Pressure: 138/88 Pulse: 88 Respirations: 18 Pulse Ox (%): 93 - Studies Laboratory Data (last 24 hrs) 04/04/24 04/04/24 04/03/24 00:52 00:52 23:08 WBC 10.00 Hgb 12.8 L Hct 38.2 L Plt Count 318 PT 9.1 L INR 0.82 APTT 29.3 Sodium Potassium BUN Creatinine Glucose Total Bilirubin 0.3 AST < 10 L ALT 20 Alkaline Phosphatase 65 04/03/24 23:08 WBC Hgb Hct Plt Count PT INR APTT Sodium 141 Potassium 3.7 BUN 8 Creatinine 0.58 L Glucose 91 Total Bilirubin AST ALT Alkaline Phosphatase Assessment And Plan - Plan Acute hypoxic respiratory failure secondary to pneumonia COPD exacerbation Pneumonia Started on Rocephin and Zithromax Will obtain cultures Change antibiotic as per sensitivity Oxygen supplementation Will try to wean down oxygen requirement Continue bronchodilators and steroids Hypertension unknown control Antihypertensives titrated Continue home medications and titrate as needed Hyperlipidemia Continue statin Tobacco use smoking Advise cessation Offered measures Counselled GI/DVT prophylaxis Advanced directive full code Discharge Plan: Home Discharge Plan: Home - Code Status/Comfort Care Code Status: Full Code Critical Care: No Time Spent Managing PTS Care (In Minutes): 35
--- NOTE | 2024-04-04 07:56 | RAD REPORT ---
EXAM DESCRIPTION: CT - Chest For Pe Angio - 04/04/2024 7:30 am CLINICAL HISTORY: PE COMPARISON: Thorax Wo Con dated 02/15/2024; Chest Abd Pelvis Wo Con dated 12/28/2023; Chest Abd Pelvis Wo Con dated 07/13/2023; Chest For Pe Angio dated 04/04/2023; Chest Single View dated 03/31/2024; Chest S anat View dated 04/03/2024 TECHNIQUE: Dynamically enhanced axial 3 mm thick images of the chest were obtained during administra tion of <100> mL Isovue 370 IV contrast. Coronal and oblique reconstruction images were generated and reviewed. Exam utilizes a protocol for optimal evaluation of pulmonary arterial tree. Maximum intensity projections 3D imaging was utilized All CT scans are performed using dose optimization technique as appropriate and may include automated exposure control or mA/KV adjustment according to patient size. FINDINGS: Chest Wall: No suspicious thyroid nodules or pathologic lymphadenopathy. Lungs: Segmental atelectasis present in the right middle and right lower lobe. No evidence of a centr ally obstructing mass. The right middle lobe findings are similar to 02/15/2024. Pleura: No significant effusions or pneumothorax. Mediastinum/manuel: No pathologic lymphadenopathy. Pulmonary arteries/Aorta: No filling defect identified. No aortic aneurysm. Heart: No significant pericardial effusion. Normal heart size. Minimal coronary artery calcifications . Upper abdomen: No acute abnormality.4 mm stone in the upper pole left kidney. Bones: No acute abnormality. IMPRESSION: Negative for pulmonary embolism. Similar partial collapse of the right middle lobe luca red with 02/15/2024 but with increased subsegmental atelectasis at the right lower lobe. Overall, the atelectasis is mild. If further evaluation is desired, bronchoscopy could be considered.
[2024-04-04] MEDS: TIOTROPIUM 5 SPRAYS/INHALER IH SCH (09:00)
[2024-04-04] MEDS: HOME MED 1 EA UNK (Budesonide/Formoterol Fumarate [Symbicort 160-4.5 Mcg Inhaler] 10.2 GM IH SCH (09:00)
[2024-04-04 09:15] VITALS: O2SAT 95
[2024-04-04] MEDS: ENOXAPARIN 40 MG/0.4 ML SQ SCH (09:35)
[2024-04-04] MEDS: MUCINEX DM 12HR.SR TAB PO SCH (09:35)
[2024-04-04] MEDS: AMLODIPINE 10 MG TAB PO SCH (09:35)
[2024-04-04] MEDS: NICOTINE 21 MG/PAT TD SCH (10:03)
[2024-04-04 15:01] VITALS: BP 138/88; TEMP 98.2
--- NOTE | 2024-04-04 15:11 | RAD REPORT ---
EXAM DESCRIPTION: RAD - Chest Single View - 04/03/2024 11:38 pm CLINICAL HISTORY: The patient is 53 years old and is Male; Chest pain;Dyspnea TECHNIQUE: Frontal view of the chest. COMPARISON: XR Chest dated Mar 23 2024 FINDINGS: LUNGS: Patchy opacity within the right lower lobe is present. The lungs are otherwise we ll-inflated and clear. PLEURAL SPACE: Unremarkable. No pneumothorax. HEART: Unremarkable. No cardiomegaly. MEDIASTINUM: Unremarkable. Normal mediastinal contour. BONES/JOINTS: Unremarkable. No acute fracture. UPPER ABDOMEN: Unremarkable as visualized. IMPRESSION: Findings suggest right lower lobe atelectasis/pneumonia. Electronically signed by: Maria Del Rosario Sosa MD 04/03/2024 11:55 PM CDT RP Due to temporary technical issues with the PACS/Fluency reporting system, reports are being signed by the in house radiologists without review as a courtesy to insure prompt reporting. The interpreting radiologist is fully responsible for the content of the report.
[2024-04-04] MEDS ORDERED: CEFTRIAXONE 1,000 MG in NA CHLORIDE 0.9% 50 ML IVPB SCH (20:00)
[2024-04-04] MEDS ORDERED: AZITHROMYCIN IV 500 MG in NA CHLORIDE 0.9% 250 ML IVPB SCH (21:00)
--- NOTE | 2024-04-05 14:16 | EKG ---
Test Date: 2024-04-03 Test Time: 22:51:26 [employer]: MEASUREMENT RESULTS: Intervals: Rate: 96 FL: 140 QRSD: 110 QT: 370 QTc: 467 Rudolph: P: 59 FL: 140 QRS: 77 T: 65 INTERPRETIVE STATEMENTS: Normal sinus rhythm Normal ECG Compared to ECG 04/01/2024 16:55:48 Sinus arrhythmia no longer present Incomplete right bundle-branch block no longer present Prolonged QT interval no longer present Electronically Signed On 04-05-24 14:12:31 CDT by Rosalino Albert
--- NOTE | 2024-04-05 14:27 | EKG ---
Test Date: 2024-04-01 Test Time: 16:55:48 Per Diem Rn: JOSE ENRIQUE MEASUREMENT RESULTS: Intervals: Rate: 93 MA: 136 QRSD: 110 QT: 392 QTc: 487 [place]: P: 63 MA: 136 QRS: 87 T: 79 INTERPRETIVE STATEMENTS: Normal sinus rhythm with sinus arrhythmia Incomplete right bundle branch block Prolonged QT Abnormal ECG Compared to ECG 03/29/2024 16:18:15 Incomplete right bundle-branch block now present Electronically Signed On 04-05-24 14:15:29 CDT by Rosalino Albert
== END 2024-04-04 11:50 | disposition left against medical advice (07) | DRG 193 ==
LOC: ER 22:42 → 2ND 04-04 01:24
PROVIDERS: ADMIT Family Medicine; ATTEND Hospitalist
DX: J18.9 Pneumonia, unspecified organism (principal); J96.21 Acute and chronic respiratory failure with hypoxia; J44.0 Chronic obstructive pulmonary disease with (acute) lower respiratory infection; J44.1 Chronic obstructive pulmonary disease with (acute) exacerbation; I10 Essential (primary) hypertension; E78.5 Hyperlipidemia, unspecified; K21.9 Gastro-esophageal reflux disease without esophagitis; M81.0 Age-related osteoporosis without current pathological fracture; F17.210 Nicotine dependence, cigarettes, uncomplicated; Z71.6 Tobacco abuse counseling; Z88.8 Allergy status to other drugs, medicaments and biological substances; Z79.52 Long term (current) use of systemic steroids; Z53.29 Procedure and treatment not carried out because of patient's decision for other reasons; Z79.899 Other long term (current) drug therapy; Z89.022 Acquired absence of left finger(s)
CPT/HCPCS: 36415; 71045; 71275; 80048; 80076; 81003; 83605; 84484; 85025; 85610; 85730; 87040; 93005; 94640; 94760; 96374; 96375; 99285; J0696; J1650; J2405; J2919; J2920; J7050; J7613; J7644; Q9967

== ENCOUNTER 2024-04-05 11:33 | Emergency (ER) | payer OTHER ==
--- OUTSIDE RECORDS SUMMARY | 2024-04-05 11:39 | XMS REPORT | Continuity of Care Document ---
Author Name Unknown Address [address] [facility] [address] [place] [address] [facility] Address [address] [facility] [place] [address] Care Team Providers Care Mobile Unit Assistant Name Role Phone JOHN ADRIANNA Primary Care Physician Unavailab WENDY High Attending Clinician Unava DARIEN Holloway Attending Clinician Unavailable PEG CAMP Attending Clinician Unavailable Peg Camp NP Attending Clinician [phone] URSULA QUINTANILLA Attending Clinician Unavailable DEMETRIA DAVENPORT Attending Clinician UnaDemetria Carver MD Attending Clinician + Christina Victoria Attending Clinician [phone] JAC NAVARRO Attending Clinician Unavailable Jac Navarro MD Attending Clinician [phone] TYLER ROWE Attending Clinician Unavailab MELINDA Boothe Attending Clinician Unavailable Melinda Maciel DO Attending Clinician [phone] CHRISTY HOLLIDAY Attending Clinician Unavailable Christy Holliday MD Attending Clinician [phone] MARIA ELENA CHAN [facility]ICAL Attending Clinicbon n Unavailable DENISE SUNG Attending Clinician Unavailable KARLEY ADAMS Attending Clinician Unavailable JAC NAVARRO Admitting Clinician Unavailable MELINDA MACIEL Admitting Clinician Unavailable CHRISTY HOLLIDAY Admitting Clinician Unavailable Payers Payer Name Policy Type Policy Number Effective Date Expirati on Date Source [facility] FOCUS 9 [id number] 2024 00:00:00 [facility] [id number] 2023 00:00:00 2024 00:00:00 [employer] [id number] 2023 00:00:00 [employer] 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 94 [place] 9 [id number] 2023 00:00:00 Problems Condition Name Condition Details Condition Category Status Onset Date Resolution Date Last Treatment Date Treating Clinician Comments Source Acute exacerbati on of chronic obstructiv e pulmonary disease (COPD) Acute exacerbati on of chronic obstructiv e pulmonary disease (COPD) Disease Active 03-24 00:00: 00 [facility] Obesity (BMI 30-39.9) Obesity (BMI 30-39.9) Disease Active 03-24 00:00: 00 [facility] Allergies, Adverse Reactions, Alerts Allergy Name Allergy Type Status Severity Reaction(s) Onset Date Inactive Date Treating Clinician Comments Source Lisinopr il Propensi ty to adverse reaction s Active Anaphylaxis 03-24 00:00: 00 [facility] LISINOPR [place] DRUG INGREDI Active Anaphylaxis 03-24 00:00: 00 [facility] Social History Social Habit Start Date Stop Date Quantity Comments Source History of tobacco use Smokes tobacco daily [facility] of Social function 2024-02-08 00:00:00 2024-02-08 00:00:00 [facility] Alcohol intake 2024-02-08 00:00:00 2024-02-08 00:00:00 4.29 /d [facility] Exposure to SARS-CoV-2 (event) 2022-10-04 00:00:00 2022-10-14 10:25:00 Not sure [facility] Tobacco use and exposure 2018-03-24 00:00:00 2018-03-24 00:00:00 User of smokeless tobacco [facility] Tobacco Comment 2018-03-24 00:00:00 2018-03-24 00:00:00 trying to quit [facility] Sex Ass[birth year] At 1970 00:00:00 1970 00:00:00 [facility] Smoking Status Start Date Stop Date Source Smokes tobacco daily 2018-03-24 00:00:00 [facility] Medications Ordered Medication Name Filled Medication Name Start Date Stop Date Current Medication? Ordering Clinician Indication Dosage Frequency Signature (SIG) Comments Components Source ketorolac (TORADOL) injection 30 mg 02-17 03:15: 00 02-17 15:14 :00 Yes 30mg 30 mg, Slow IV Push, ONCE, 1 dose, On Thu02/17/24 at 2215, Routine [facility] methylpredn isolone sod succ (SOLU-MEDRO L) injection 125 mg 02-17 03:00: 00 02-17 14:59 :00 Yes 125mg 125 mg, Intravenou s, ONCE, 1 dose, On Thu02/17/24 at 2200, 2 mL [facility] ipratropium -albuteroL (DUONEB) 0.5 mg-3 mg(2.5 mg base)/3 mL nebulizer solution 6 mL 02-17 03:00: 00 02-17 14:59 :00 Yes 6mL 6 mL, Inhalation , ONCE NOW, 1 dose, On Thu02/17/24 at 2200, Routine [facility] NaCl 0.9% (NS) bolus infusion 1,000 mL 02-17 03:00: 00 02-17 14:59 :00 Yes 1000mL at 999 mL/hr, 1,000 mL, IV Infusion, ONCE, 1 dose, On Thu02/17/24 at 2200, LAURYN [facility] triamterene -hydrochlor othiazide 37.5-25 mg per capsule 02-16 20:52: 37 02-16 00:00 :00 No 1{capsu le} Take 1 capsule by mouth every morning. [facility] albuterol 5 mg/mL nebulizer solution 02-16 20:51: 42 02-16 00:00 :00 No 2.5mg Inhale 2.5 mg every 6 (six) hours as needed for Wheezing or Shortness of Breath. [facility] ketorolac (TORADOL) injection 15 mg 02-08 03:00: 00 02-08 02:21 :00 No 15mg 15 mg, Slow IV Push, ONCE, 1 dose, On Thu02/08/24 at 2200, Routine [facility] iopamidol (ISOVUE 370-500 mL) injection 100 mL 02-07 22:30: 00 02-07 22:30 :00 Yes [id number] 100mL 100 mL, Intravenou s, ONCE, 1 dose, On Thu02/08/24 at 1730, Routine [facility] ipratropium -albuteroL (DUONEB) 0.5 mg-3 mg(2.5 mg base)/3 mL nebulizer solution 3 mL 02-07 21:15: 00 02-07 20:45 :00 No 3mL 3 mL, Inhalation , ONCE, 1 dose, On Thu02/08/24 at 1615, Routine [facility] morpHINE (2 mg/mL) injection 4 mg 02-07 21:15: 00 02-07 20:27 :00 No 4mg 4 mg, Slow IV Push, ONCE, 1 dose, On Thu02/08/24 at 1615, STAT [facility] ondansetron (ZOFRAN (PF)) injection 4 mg 02-07 21:15: 00 02-07 20:22 :00 No 4mg 4 mg, Slow IV Push, ONCE, 1 dose, On Thu02/08/24 at 1615, [facility] magnesium sulfate in water 2 gram/50 mL (4 %) infusion 2 g 02-07 21:00: 00 02-07 21:30 :00 No 2g 2 g, IV Piggyback, Administer over 60 Minutes, ONCE, 1 dose, On Thu02/08/24 at 1600, Routine [facility] ipratropium -albuteroL (DUONEB) 0.5 mg-3 mg(2.5 mg base)/3 mL nebulizer solution 3 mL 02-07 20:30: 00 02-07 19:31 :00 No 3mL 3 mL, Inhalation , ONCE, 1 dose, On Thu02/08/24 at 1530, [facility] HYDROcodone -acetaminop hen (NORCO) 10-325 mg tablet 1 tablet 01-13 13:15: 00 01-13 12:15 :00 No 1{tbl} 1 tablet, Oral, ONCE, 1 dose, On Thu01/14/24 at 0715, [facility] ipratropium -albuteroL (DUONEB) 0.5 mg-3 mg(2.5 mg base)/3 mL nebulizer solution 3 mL 01-13 13:00: 00 01-13 11:53 :00 No 3mL 3 mL, Inhalation , ONCE NOW, 1 dose, On Thu01/14/24 at 0700, [facility] ondansetron (ZOFRAN (PF)) injection 4 mg 01-13 11:30: 00 01-13 11:37 :00 No 4mg 4 mg, Slow IV Push, ONCE, 1 dose, On Thu01/14/24 at 0530, [facility] morpHINE (4 mg/mL) injection 4 mg 01-13 11:30: 00 01-13 11:37 :00 No 4mg 4 mg, Slow IV Push, ONCE, 1 dose, On Thu01/14/24 at 0530, STAT [facility] azithromyci n (ZITHROMAX Z-PORTER) 250 mg tablet 01-13 00:00: 00 02-16 00:00 :00 No [id number] Take 500 mg on day 1 then 250 mg on days 2-5 [facility] predniSONE 20 mg tablet 01-13 00:00: 00 02-16 00:00 :00 No [id number] Take 1 po tid x 2 days, then take 1 po bid x 3 days, then take 1 po daily x 3 days. [facility] acetaminoph en-codeine 300-30 mg tablet 01-13 00:00: 00 01-21 04:59 :00 Yes [id number] 1{tbl} Take 1 tablet by mouth every 6 (six) hours as needed for Pain (scale 7-10) (severe cough) for up to 7 days. Indication s: acute pain, severe cough [facility] clonazePAM 1 mg tablet 12-26 00:00: 00 02-16 00:00 :00 No 1mg Take 1 tablet by mouth at bedtime as needed for Other (anxiety). [facility] KCL (KLOR-CON M20) tablet 40 mEq 12-23 05:00: 00 12-23 05:07 :00 No 40meq 40 mEq, Oral, ONCE, 1 dose, [facility]12/22/23 [facility] 2300[facility] 0.9% (NS) bolus infusion 1,000 mL 12-23 05:00: 00 12-23 05:09 :00 No 1000mL at 999 mL/hr, 1,000 mL, IV Infusion, ONCE, 1 dose, On Thu12/22/23 at 2300, LAURYN [facility] ondansetron (ZOFRAN (PF)) injection 4 mg 12-23 04:30: 00 12-23 04:24 :00 No 4mg 4 mg, Slow IV Push, ONCE, 1 dose, On Thu12/22/23 at 2230, LAURYN [facility] maalox:diph enhydrAMINE :lidocaine 2 % viscous 1:1:1 (FIRST-MOUT HWASH BLM) oral suspension 15 mL 12-23 04:15: 00 12-23 04:17 :00 No 15mL 15 mL, Oral, ONCE, 1 dose, On Thu12/22/23 at 2215, Routine [facility] famotidine (PEPCID (PF)) injection 20 mg 12-23 04:15: 00 12-23 04:15 :00 No 20mg 20 mg, Slow IV Push, ONCE, 1 dose, On Thu12/22/23 at 2215, [facility] HYDROcodone -acetaminop hen (NORCO) 10-325 mg tablet 1 tablet 12-22 04:30: 00 12-22 16:29 :00 No 1{tbl} 1 tablet, Oral, ONCE, 1 dose, On Thu12/21/23 at 2230, Routine [facility] pantoprazol e (PROTONIX) 80 mg in NaCl 0.9% (NS) 20 mL syringe 12-22 04:15: 00 12-22 16:14 :00 No 80mg 80 mg, IV Push, ONCE, 1 dose, On Thu12/21/23 at 2215, Administer over 2 Minutes, 20 mL [facility] iopamidol (ISOVUE 370-500 mL) injection 100 mL 12-22 03:30: 00 12-22 03:30 :00 No [id number] 100mL 100 mL, Intravenou s, ONCE, 1 dose, On Thu12/21/23 at 2130, Routine [facility] morpHINE (4 mg/mL) injection 4 mg 12-22 03:30: 00 12-22 02:16 :00 No 4mg 4 mg, Slow IV Push, ONCE, 1 dose, On Thu12/21/23 at 2130, Routine [facility] ondansetron (ZOFRAN (PF)) injection 4 mg 12-22 02:45: 00 12-22 02:02 :00 No 4mg 4 mg, Slow IV Push, ONCE, 1 dose, On Thu12/21/23 at 2045, Routine [facility] hydrocortis one 25 mg suppository 12-22 00:00: 00 Yes [id number] 25mg Insert 1 Suppositor y into rectum 2 (two) times daily as needed for Rectal itching/pa in. [facility] ondansetron 4 mg disintegrat ing tablet 12-22 00:00: 00 02-16 00:00 :00 No [id number] 4mg Take 1 tablet by mouth every 8 (eight) hours as needed for Nausea and Vomiting (N/V). [facility] amoxicillin -clavulanat e 875-125 mg per tablet 12-22 00:00: 00 01-02 05:59 :00 No [id number] 1{tbl} Take 1 tablet by mouth every 12 (twelve) hours for 10 days. [facility] methylpredn isolone sod succ (SOLU-MEDRO L) injection 125 mg 2022-11 08:45: 00 10-27 20:44 :00 No 125mg 125 mg, Slow IV Push, ONCE, 1 dose, On Thu10/27/23 at 0245, STAT [facility] ipratropium -albuteroL (DUONEB) 0.5 mg-3 mg(2.5 mg base)/3 mL nebulizer solution 3 mL 2022-11 08:45: 00 10-27 20:44 :00 No 3mL 3 mL, Inhalation , ONCE NOW, 1 dose, On Thu10/27/23 at 0245, LAURYN [facility] diazePAM (VALIUM) tablet 10 mg 2022-11 07:45: 00 10-27 19:44 :00 No 10mg 10 mg, Oral, ONCE, 1 dose, On Thu10/27/23 at 0145, LAURYN [facility] levoFLOXaci n (LEVAQUIN) tablet 500 mg 2022-11 07:45: 00 10-27 19:44 :00 No 500mg 500 mg, Oral, ONCE, 1 dose, On Thu10/27/23 at 0145, LAURYN
Re ason for Anti-Infec tive: Empiric Non-Surgic al Prophylaxi s
Durat ion of therapy: Once (ED) [facility] iopamidol (ISOVUE 370-500 mL) injection 70 mL 2021-11 18:30: 00 10-14 18:30 :00 No [id number] 70mL 70 mL, Intravenou s, ONCE, 1 dose, On Thu10/14/22 at 1230, Routine [facility] methylpredn isolone sod succ (SOLU-MEDRO L) injection 125 mg 2021-11 18:00: 00 Yes 125mg 125 mg, Intravenou s, Q6H, First dose on Thu10/14/22 at 1200, Until Discontinu ed, Routine [facility] furosemide (LASIX) injection 40 mg 2021-11 17:45: 00 10-14 16:39 :00 No 40mg 40 mg, IV Push, ONCE, 1 dose, On Thu10/14/22 at 1145, LAURYN [facility] ipratropium -albuteroL (DUONEB) 0.5 mg-3 mg(2.5 mg base)/3 mL nebulizer solution 3 mL 2021-11 17:30: 00 10-14 16:41 :00 No 3mL 3 mL, Inhalation , ONCE, 1 dose, On Thu10/14/22 at 1130, Routine [facility] FENTanyl PF (SUBLIMAZE (PF)) injection 50 mcg 2021-11 16:45: 00 10-14 16:39 :00 No 50ug 50 mcg, Slow IV Push, ONCE, 1 dose, On Thu10/14/22 at 1045, Routine [facility] levoFLOXaci n 750 mg tablet 2021-11 00:00: 00 02-16 00:00 :00 No [id number] 750mg Take 1 tablet by mouth every 24 (twenty-fo ur) hours. [facility] HYDROcodone -acetaminop hen (NORCO) 10-325 mg tablet 1 tablet 03-12 12:15: 00 03-12 11:21 :00 No 1{tbl} 1 tablet, Oral, ONCE, 1 dose, On Thu03/12/22 at 0715, Routine [facility] HYDROcodone -acetaminop hen 10-325 mg tablet 03-12 00:00: 00 03-20 04:59 :00 No [id number] 1{tbl} Take 1 tablet by mouth every 6 (six) hours as needed for Pain (scale 7-10) for up to 7 days. Indication s: acute pain [facility] ipratropium -albuteroL (DUONEB) 0.5 mg-3 mg(2.5 mg base)/3 mL nebulizer solution 3 mL 02-20 13:00: 00 Yes 3mL 3 mL, Inhalation , QID, First dose on Thu02/20/22 at 0800, Until Discontinu ed, Routine [facility] methylPREDN ISolone sod succ (SOLU-MEDRO L (PF)) injection 40 mg 02-20 11:45: 00 02-20 10:43 :00 No 40mg 40 mg, Intravenou s, ONCE, 1 dose, On Thu02/20/22 at 0645, STAT [facility] foLIC acid (FOLATE) tablet 1 mg 02-20 11:45: 00 02-20 10:41 :00 No 1mg 1 mg, Oral, ONCE, 1 dose, On Thu02/20/22 at 0645, LAURYN [facility] thiamine (VITAMIN B1) injection 100 mg 02-20 11:45: 00 02-20 10:43 :00 No 100mg 100 mg, Intravenou s, ONCE, 1 dose, On Thu02/20/22 at 0645, LAURYN [facility] LORazepam (ATIVAN) injection 2 mg 02-20 11:45: 00 02-20 10:42 :00 No 2mg 2 mg, Slow IV Push, ONCE, 1 dose, On [facility] 02/20/22 at 0645, STAT [facility] ipratropium -albuteroL (DUONEB) 0.5 mg-3 mg(2.5 mg base)/3 mL nebulizer solution 3 mL 02-20 10:30: 00 02-20 09:34 :00 No 3mL 3 mL, Inhalation , ONCE, 1 dose, On [facility] 02/20/22 at 0530, Routine [facility] albuterol 90 mcg/actuati on inhaler 02-20 00:00: 00 Yes [id number] 2{puff} Inhale 2 Puffs every 4 (four) hours as needed for Wheezing or Shortness of Breath. [facility] triamterene -hydrochlor othiazid 37.5-25 mg tablet 02-20 00:00: 00 Yes [id number] 1{tbl} Take 1 tablet by mouth daily. [facility] chlordiazeP OXIDE 25 mg capsule 02-20 00:00: 00 Yes [id number] 25mg Take 1 capsule by mouth every 6 (six) hours as needed for Anxiety, Agitation, Heart Rate => 100 or Detox. [facility] predniSONE 10 mg tablet 02-20 00:00: 00 02-16 00:00 :00 No [id number] TAKE ONE TABLET BY MOUTH DAILY [facility] albuterol 2.5 mg /3 mL (0.083 %) nebulizer solution 02-20 00:00: 00 02-16 00:00 :00 No [id number] 2.5mg Inhale 3 mL every 4 (four) hours. May also nebulize one extra every 6 hours. [facility] budesonide- formoteroL 160-4.5 mcg/actuati on inhaler 02-20 00:00: 00 02-16 00:00 :00 No [id number] 2{puff} Inhale 2 Puffs 2 (two) times daily. [facility] albuterol 5 mg/mL nebulizer solution 07-16 14:02: 20 Yes 2.5mg Inhale 2.5 mg every 6 (six) hours as needed for Wheezing or Shortness of Breath. [facility] budesonide- formoterol 160-4.5 mcg/actuati on inhaler 07-16 00:00: 00 Yes 2{puff} Inhale 2 Puffs 2 (two) times daily. [facility] albuterol 2.5 mg /3 mL (0.083 %) nebulizer solution 07-16 00:00: 00 Yes 2.5mg Inhale 3 mL every 4 (four) hours as needed for Wheezing or Shortness of Breath. [facility] triamterene -hydrochlor othiazide 37.5-25 mg per capsule 03-26 16:32: 14 Yes 1{capsu le} Take 1 capsule by mouth every morning. [facility] amLODIPine 10 mg tablet 03-26 16:32: 14 Yes 10mg Take 10 mg by mouth at bedtime. [facility] gabapentin 100 mg capsule 03-26 16:32: 14 Yes 100mg Take 100 mg by mouth 2 (two) times daily as needed (MSK pain). [facility] foLIC acid 1 mg tablet 03-26 16:32: 14 Yes 1mg Take 1 mg by mouth daily. [facility] budesonide- formoterol 160-4.5 mcg/actuati on inhaler 03-26 00:00: 00 02-16 00:00 :00 No 2{puff} Inhale 2 Puffs 2 (two) times daily. [facility] Immunizations Ordered Immunization Name Filled Immunization Name Date Status Comments Source SARS-COV-2 COVID-19 PFIZER VACCINE 2021-02-03 00:00:00 Completed [facility] SARS-COV-2 COVID-19 PFIZER VACCINE 2021-02-03 00:00:00 Completed [facility] SARS-COV-2 COVID-19 PFIZER VACCINE 2021-02-03 00:00:00 Completed [facility] SARS-COV-2 COVID-19 PFIZER VACCINE 2021-01-13 00:00:00 Completed [facility] SARS-COV-2 COVID-19 PFIZER VACCINE 2021-01-13 00:00:00 Completed [facility] SARS-COV-2 COVID-19 PFIZER VACCINE 2021-01-13 00:00:00 Completed [facility] Pneumococcal Polysaccharide, PPSV23 (PNEUMOVAX) 2018-03-26 00:00:00 Completed [facility] Influenza Virus Vaccine Quad IM 3+ YRS 2018-03-26 00:00:00 Completed [facility] Pneumococcal Polysaccharide, PPSV23 (PNEUMOVAX) 2018-03-26 00:00:00 Completed [facility] Influenza Virus Vaccine Quad IM 3+ YRS 2018-03-26 00:00:00 Completed [facility] Pneumococcal Polysaccharide, PPSV23 (PNEUMOVAX) 2018-03-26 00:00:00 Completed [facility] Influenza Virus Vaccine Quad IM 3+ YRS 2018-03-26 00:00:00 Completed [facility] Pneumococcal Polysaccharide, PPSV23 (PNEUMOVAX) Unknown Completed [facility] Influenza Virus Vaccine Quad IM 3+ YRS Unknown Completed [facility] SARS-COV-2 COVID-19 PFIZER VACCINE Unknown Completed [facility] SARS-COV-2 COVID-19 PFIZER VACCINE Unknown Completed [facility] Pneumococcal Polysaccharide, PPSV23 (PNEUMOVAX) Unknown Completed [facility] Influenza Virus Vaccine Quad IM 3+ YRS Unknown Completed [facility] SARS-COV-2 COVID-19 PFIZER VACCINE Unknown Completed [facility] SARS-COV-2 COVID-19 PFIZER VACCINE Unknown Completed [facility] Pneumococcal Polysaccharide, PPSV23 (PNEUMOVAX) Unknown Completed [facility] Influenza Virus Vaccine Quad IM 3+ YRS Unknown Completed [facility] SARS-COV-2 COVID-19 PFIZER VACCINE Unknown Completed [facility] SARS-COV-2 COVID-19 PFIZER VACCINE Unknown Completed [facility] Pneumococcal Polysaccharide, PPSV23 (PNEUMOVAX) Unknown Completed [facility] Influenza Virus Vaccine Quad IM 3+ YRS Unknown Completed [facility] SARS-COV-2 COVID-19 PFIZER VACCINE Unknown Completed [facility] SARS-COV-2 COVID-19 PFIZER VACCINE Unknown Completed [facility] Pneumococcal Polysaccharide, PPSV23 (PNEUMOVAX) Unknown Completed [facility] Influenza Virus Vaccine Quad IM 3+ YRS Unknown Completed [facility] SARS-COV-2 COVID-19 PFIZER VACCINE Unknown Completed [facility] SARS-COV-2 COVID-19 PFIZER VACCINE Unknown Completed [facility] Pneumococcal Polysaccharide, PPSV23 (PNEUMOVAX) Unknown Completed [facility] Influenza Virus Vaccine Quad IM 3+ YRS Unknown Completed [facility] SARS-COV-2 COVID-19 PFIZER VACCINE Unknown Completed [facility] SARS-COV-2 COVID-19 PFIZER VACCINE Unknown Completed [facility] Pneumococcal Polysaccharide, PPSV23 (PNEUMOVAX) Unknown Completed [facility] Influenza Virus Vaccine Quad IM 3+ YRS Unknown Completed [facility] SARS-COV-2 COVID-19 PFIZER VACCINE Unknown Completed [facility] SARS-COV-2 COVID-19 PFIZER VACCINE Unknown Completed [facility] Pneumococcal Polysaccharide, PPSV23 (PNEUMOVAX) Unknown Completed [facility] Influenza Virus Vaccine Quad IM 3+ YRS Unknown Completed [facility] SARS-COV-2 COVID-19 PFIZER VACCINE Unknown Completed [facility] SARS-COV-2 COVID-19 PFIZER VACCINE Unknown Completed [facility] Vital Signs Vital Name Observation Time Observation Value Comments S ource Systolic blood pressure 2024-02-18 01:57:00 134 mm[Hg] [facility] Diastolic blood pressure 2024-02-18 01:57:00 94 mm[Hg] [facility] Body height 2024-02-18 01:57:00 162.6 cm [facility] Body weight 2024-02-18 01:57:00 79.379 kg [facility] BMI 2024-02-18 01:57:00 30.04 kg/m2 [facility] Heart rate 2024-02-18 01:53:00 110 /min [facility] Body temperature 2024-02-18 01:53:00 36.61 [facility] Respiratory rate 2024-02-18 01:53:00 24 /min [facility] Oxygen saturation in Arterial blood by Pulse oximetry 2024-02-18 01:53:00 93 /min [facility] Systolic blood pressure 2024-02-09 01:54:05 150 mm[Hg] [facility] Diastolic blood pressure 2024-02-09 01:54:05 91 mm[Hg] [facility] Heart rate 2024-02-09 01:54:05 87 /min [facility] Respiratory rate 2024-02-09 01:54:05 17 /min [facility] Oxygen saturation in Arterial blood by Pulse oximetry 2024-02-09 01:54:05 93 /min [facility] Body temperature 2024-02-09 01:45:00 36.67 Debbie [facility] Body height 2024-02-09 01:45:00 162.6 cm [facility] Body weight 2024-02-09 01:45:00 81.194 kg [facility] BMI 2024-02-09 01:45:00 30.73 kg/m2 [facility] Respiratory rate 2024-02-08 21:00:00 18 /min [facility] Oxygen saturation in Arterial blood by Pulse oximetry 2024-02-08 21:00:00 96 /min [facility] Systolic blood pressure 2024-02-08 20:27:00 164 mm[Hg] [facility] Diastolic blood pressure 2024-02-08 20:27:00 90 mm[Hg] [facility] Heart rate 2024-02-08 20:27:00 83 /min [facility] Body temperature 2024-02-08 19:12:00 36.83 Debbie [facility] Body height 2024-02-08 19:12:00 162.6 cm [facility] Body weight 2024-02-08 19:12:00 81.194 kg [facility] BMI 2024-02-08 19:12:00 30.73 kg/m2 [facility] Heart rate 2024-01-14 12:15:00 98 /min [facility] Body temperature 2024-01-14 12:15:00 36.56 Debbie [facility] Respiratory rate 2024-01-14 12:15:00 14 /min [facility] Oxygen saturation in Arterial blood by Pulse oximetry 2024-01-14 12:15:00 95 /min [facility] Systolic blood pressure 2024-01-14 12:00:00 140 mm[Hg] [facility] Diastolic blood pressure 2024-01-14 12:00:00 90 mm[Hg] [facility] Body height 2024-01-14 10:51:00 162.6 cm [facility] Body weight 2024-01-14 10:51:00 81.194 kg [facility] BMI 2024-01-14 10:51:00 30.73 kg/m2 [facility] Systolic blood pressure 2023-12-23 05:02:00 133 mm[Hg] [facility] Diastolic blood pressure 2023-12-23 05:02:00 84 mm[Hg] [facility] Heart rate 2023-12-23 05:02:00 78 /min [facility] Body temperature 2023-12-23 05:02:00 36.17 Debbie [facility] Respiratory rate 2023-12-23 05:02:00 17 /min [facility] Oxygen saturation in Arterial blood by Pulse oximetry 2023-12-23 05:02:00 91 /min [facility] Body height 2023-12-23 03:45:00 162.6 cm [facility] Body weight 2023-12-23 03:45:00 81.194 kg [facility] BMI 2023-12-23 03:45:00 30.73 kg/m2 [facility] Systolic blood pressure 2023-12-22 02:08:00 143 mm[Hg] [facility] Diastolic blood pressure 2023-12-22 02:08:00 92 mm[Hg] [facility] Heart rate 2023-12-22 02:08:00 81 /min [facility] Respiratory rate 2023-12-22 02:08:00 13 /min [facility] Oxygen saturation in Arterial blood by Pulse oximetry 2023-12-22 02:08:00 95 /min [facility] Body temperature 2023-12-22 01:33:00 36.72 Debbie [facility] Body height 2023-12-22 01:33:00 162.6 cm [facility] Body weight 2023-12-22 01:33:00 81.239 kg [facility] BMI 2023-12-22 01:33:00 30.74 kg/m2 [facility] Systolic blood pressure 2023-11-11 02:00:00 127 mm[Hg] [facility] Diastolic blood pressure 2023-11-11 02:00:00 87 mm[Hg] [facility] Heart rate 2023-11-11 02:00:00 79 /min [facility] Respiratory rate 2023-11-11 02:00:00 20 /min [facility] Oxygen saturation in Arterial blood by Pulse oximetry 2023-11-11 02:00:00 98 /min [facility] Body temperature 2023-11-11 01:31:00 36.28 Debbie [facility] Body height 2023-11-11 01:31:00 162.6 cm [facility] Body weight 2023-11-11 01:31:00 79.379 kg [facility] BMI 2023-11-11 01:31:00 30.04 kg/m2 [facility] Systolic blood pressure 2023-10-27 06:54:00 133 mm[Hg] [facility] Diastolic blood pressure 2023-10-27 06:54:00 94 mm[Hg] [facility] Heart rate 2023-10-27 06:54:00 95 /min [facility] Body temperature 2023-10-27 06:54:00 36.44 Debbie [facility] Respiratory rate 2023-10-27 06:54:00 22 /min [facility] Body height 2023-10-27 06:54:00 162.6 cm [facility] Body weight 2023-10-27 06:54:00 78.472 kg [facility] BMI 2023-10-27 06:54:00 29.70 kg/m2 [facility] Oxygen saturation in Arterial blood by Pulse oximetry 2023-10-27 06:54:00 94 /min [facility] Systolic blood pressure 2022-10-14 19:43:00 111 mm[Hg] [facility] Diastolic blood pressure 2022-10-14 19:43:00 74 mm[Hg] [facility] Heart rate 2022-10-14 19:43:00 98 /min [facility] Body temperature 2022-10-14 19:43:00 36.39 Debbie [facility] Respiratory rate 2022-10-14 19:43:00 22 /min [facility] Oxygen saturation in Arterial blood by Pulse oximetry 2022-10-14 19:43:00 94 /min [facility] Body height 2022-10-14 16:13:00 162.6 cm [facility] Body weight 2022-10-14 16:13:00 81.647 kg [facility] BMI 2022-10-14 16:13:00 30.90 kg/m2 [facility] Systolic blood pressure 2022-03-12 10:13:00 119 mm[Hg] [facility] Diastolic blood pressure 2022-03-12 10:13:00 75 mm[Hg] [facility] Heart rate 2022-03-12 10:13:00 105 /min [facility] Body temperature 2022-03-12 10:13:00 37.28 Debbie [facility] Respiratory rate 2022-03-12 10:13:00 19 /min [facility] Body height 2022-03-12 10:13:00 162.6 cm [facility] Body weight 2022-03-12 10:13:00 99.791 kg [facility] BMI 2022-03-12 10:13:00 37.76 kg/m2 [facility] Oxygen saturation in Arterial blood by Pulse oximetry 2022-03-12 10:13:00 96 /min [facility] Systolic blood pressure 2022-02-20 11:57:00 155 mm[Hg] [facility] Diastolic blood pressure 2022-02-20 11:57:00 88 mm[Hg] [facility] Heart rate 2022-02-20 11:57:00 105 /min [facility] Respiratory rate 2022-02-20 11:57:00 18 /min [facility] Oxygen saturation in Arterial blood by Pulse oximetry 2022-02-20 11:57:00 100 /min [facility] Body temperature 2022-02-20 09:25:00 37 Debbie [facility] Body height 2022-02-20 09:25:00 162.6 cm [facility] Body weight 2022-02-20 09:25:00 96.163 kg [facility] BMI 2022-02-20 09:25:00 36.39 kg/m2 [facility] Procedures Procedure Date / Time Performed Performing Clinician Source AC PANEL 20 + LACTIC ACID 2024-02-08 20:47:00 Christina Villarreal [facility] XR CHEST 1 VW 2024-02-08 19:47:00 Christina Villarreal [facility] URINALYSIS 2024-02-08 19:36:00 [facility] MAGNESIUM 2024-02-08 19:25:00 [facility] TROPONIN I 2024-02-08 19:25:00 [facility] COMP. METABOLIC PANEL ([id number]) 2024-02-08 19:25:00 Christina Villarreal [facility] ETHANOL 2024-02-08 19:25:00 [facility] CBC WITH DIFF 2024-02-08 19:25:00 Christina Villarreal [facility] N-TERMINAL PRO-BNP 2024-02-08 19:25:00 Christina Villarreal [facility] EKG-12 LEAD 2024-01-14 12:00:51 Jac Navarro [facility] LIPASE 2024-01-14 11:11:00 Jac Navarro [facility] TROPONIN I 2024-01-14 11:11:00 Jac Navarro [facility] COMP. METABOLIC PANEL ([id number]) 2024-01-14 11:11:00 Jac Navarro [facility] ETHANOL 2024-01-14 11:11:00 Jac Navarro [facility] CBC WITH DIFF 2024-01-14 11:11:00 Jac Navarro [facility] N-TERMINAL PRO-BNP 2024-01-14 11:11:00 Jac Navarro [facility] COVID-19 (ID NOW RAPID TESTING) 2024-01-14 11:11:00 Jac Navarro [facility] CONSENT/REFUSAL FOR DIAGNOSIS AND TREATMENT 2024-01-14 10:44:32 Doctor Unassigned, [place] [facility] LIPASE 2023-12-23 04:17:00 Tyler Rowe Un [facility] COMP. METABOLIC PANEL ([id number]) 2023-12-23 04:17:00 Tyler Rowe [facility] CBC WITH DIFF 2023-12-23 04:17:00 [facility] 2023-12-23 04:17:00 Tyler Rowe Un [facility] CONSENT/REFUSAL FOR DIAGNOSIS AND TREATMENT 2023-12-23 03:40:32 Doctor Unassigned, [place] [facility] CT ABDOMEN PELVIS W CONTRAST 2023-12-22 02:31:05 Melinda Maciel [facility] LIPASE 2023-12-22 01:58:00 Melinda Maciel [facility] COMP. METABOLIC PANEL ([id number]) 2023-12-22 01:58:00 Melinda Maciel [facility] ETHANOL 2023-12-22 01:58:00 Melinda Maciel [facility] CBC WITH DIFF 2023-12-22 01:58:00 Singer [facility] PROTHROMBIN TIME / INR 2023-12-22 01:58:00 Wali Maciel [facility] URINALYSIS 2023-12-22 01:58:00 Melinda Maciel [facility] CONSENT/REFUSAL FOR DIAGNOSIS AND TREATMENT 2023-12-22 01:19:14 Doctor Unassigned, [place] [facility] NOTICE OF PRIVACY PRACTICES 2023-11-11 01:24:24 Doctor Unassigned, [place] [facility] CONSENT/REFUSAL FOR DIAGNOSIS AND TREATMENT 2023-11-11 01:23:54 Doctor Unassigned, [place] [facility] COVID-19 (ID NOW RAPID TESTING) 2023-10-27 07:09:00 Jac Navarro [facility] NOTICE OF PRIVACY PRACTICES 2023-10-27 06:49:48 Doctor Unassigned, [place] [facility] CONSENT/REFUSAL FOR DIAGNOSIS AND TREATMENT 2023-10-27 06:47:40 Doctor Unassigned, [place] [facility] CT ABDOMEN PELVIS W CONTRAST 2022-10-14 17:33:00 Singer [facility] XR CHEST 1 VW 2022-10-14 17:10:37 Singer [facility] TROPONIN I 2022-10-14 16:37:00 Melinda Maciel [facility] COMP. METABOLIC PANEL ([id number]) 2022-10-14 16:37:00 [facility] 2022-10-14 16:37:00 Melinda Maciel [facility] PROTHROMBIN TIME / INR 2022-10-14 16:37:00 [facility] 2022-10-14 16:37:00 [facility] N-TERMINAL PRO-BNP 2022-10-14 16:37:00 [facility]USAL FOR DIAGNOSIS AND TREATMENT 2022-10-14 15:56:36 Doctor Unassigned, [place] [facility] CONSENT/REFUSAL FOR DIAGNOSIS AND TREATMENT 2022-03-12 10:03:12 Doctor Unassigned, [place] [facility] XR CHEST 1 VW 2022-02-20 09:59:00 Christy Holliday [facility] LIPASE 2022-02-20 09:30:00 Christy Holliday [facility] TROPONIN I 2022-02-20 09:30:00 Christy Holliday [facility] COMP. METABOLIC PANEL ([id number]) 2022-02-20 09:30:00 Christy Holliday [facility] CBC WITH DIFF 2022-02-20 09:30:00 Christy Holliday [facility] N-TERMINAL PRO-BNP 2022-02-20 09:30:00 Christy Holliday [facility] NOTICE OF PRIVACY PRACTICES 2022-02-20 09:15:02 Doctor Unassigned, [place] [facility] CONSENT/REFUSAL FOR DIAGNOSIS AND TREATMENT 2022-02-20 09:14:47 Doctor Unassigned, [place] [facility] Encounters Start Date/Time End Date/Time Encounter Type Admission Type Attending [facility] Care Department Encounter ID Source 2024-04-12 11:00:00 2024-04-12 11:00:00 Outpatient WENDY BROWNLEE [id number] [facility] 2024-04-05 11:30:00 2024-04-05 11:30:00 Outpatient DARIEN LOBO [id number] Maria Elena Alcantara 2024-04-05 00:00:00 2024-04-05 00:00:00 Outpatient DARIEN LOBO [id number] Maria Elena Alcantara 2024-03-28 00:00:00 2024-03-28 00:00:00 Outpatient DARIEN LOBO [id number] Maria Elena Alcantara 2024-03-15 08:30:00 2024-03-15 08:30:00 Outpatient WENDY BROWNLEE [id number] Maria Elena Alcantara 2024-02-17 20:58:00 2024-02-17 21:44:00 Emergency X PEG CAMP [email or web address]] ERT [id number] [facility] 2024-02-17 20:58:00 2024-02-17 21:44:00 Emergency Peg Camp [facility] 1.2.840.114 350.1.13.10 4.2.7.2.686 [id number] [id number] [facility] 2024-02-09 13:10:00 2024-02-09 15:14:00 Emergency E URSULA QUINTANILLA [facility] [id number] [facility] 2024-02-08 20:38:00 2024-02-08 21:40:00 Emergency X DEMETRIA DAVENPORT [facility] [[email or web address]] ERT [id number] [facility] 2024-02-08 20:38:00 2024-02-08 21:40:00 Emergency Demetria Davenport [facility] 1.2.840.114 350.1.13.10 4.2.7.2.686 [id number] 084 [id number] [facility] 2024-02-08 14:08:00 2024-02-08 17:06:00 Emergency Christina Villarreal [facility] 1.2.840.114 350.1.13.10 4.2.7.2.686 [id number] 084 [id number] [facility] 2024-01-14 04:46:00 2024-01-14 06:23:00 Emergency X JAC NAVARRO [facility] [[email or web address]] ERT [id number] [facility] 2024-01-14 04:46:00 2024-01-14 06:23:00 Emergency Jac Navarro [facility] 1.2.840.114 350.1.13.10 4.2.7.2.686 [id number] [id number] [facility] 2023-12-22 21:51:00 2023-12-22 23:13:00 Emergency X TYLER ROWE [facility] [[email or web address]] ERT [id number] [facility] 2023-12-22 21:51:00 2023-12-22 23:13:00 Emergency Tyler Rowe [facility] 1.2840.114 350.1.13.10 4.2.7.2.686 [id number] [id number] [facility] 2023-12-21 19:36:00 2023-12-21 21:52:00 Emergency X MELINDA MACIEL [facility] [[email or web address]] ERT [id number] [facility] 2023-12-21 19:36:00 2023-12-21 21:52:00 Emergency Melinda Maciel [facility] 1.2840.114 350.1.13.10 4.2.7.2.686 [id number] [id number] [facility] 2023-11-10 19:29:00 2023-11-10 20:14:00 Emergency X CHRISTY HOLLIDAY [facility] [[email or web address]] ERT [id number] [facility] 2023-11-10 19:29:00 2023-11-10 20:14:00 Emergency Christy Holliday [facility] 1.2840.114 350.1.13.10 4.2.7.2.686 [id number] [id number] [facility] 2023-10-27 00:49:00 2023-10-27 01:41:00 Emergency X JAC NAVARRO [facility] [[email or web address]] ERT [id number] [facility] 2023-10-27 00:49:00 2023-10-27 01:41:00 Emergency Jac Navarro [facility] 1.840.114 350.1.13.10 4.2.7.2.686 [id number] [id number] [facility] 2023-07-15 00:00:00 2023-07-15 00:00:00 Outpatient PREZAS, DARIEN BECERRA [id number] Maria Elena [facility] 2023-06-16 11:30:00 2023-06-16 11:30:00 Outpatient PREZAS, DARIEN BECERRA MARIA ELENA [id number] Maria Elena [facility] 2023-05-18 00:00:00 2023-05-18 00:00:00 Outpatient GROUP, MARIA ELENA BECERRA MARIA ELENA [id number] Maria Elena [facility] 2022-10-14 10:07:00 2022-10-14 14:39:00 Emergency X MELINDA MACIEL [facility] [[email or web address]] ERT [id number] [facility] 2022-10-14 10:07:00 2022-10-14 14:39:00 Emergency Melinda Maciel [facility] 1.2.840.114 350.1.13.10 4.2.7.2.686 [id number] [id number] [facility] 2022-03-12 05:15:00 2022-03-12 06:41:00 Emergency X CHRISTY HOLLIDAY [facility] [[email or web address]] ERT [id number] [facility] 2022-03-12 05:15:00 2022-03-12 06:41:00 Emergency Christy Holliday [facility] 1.2.840.114 350.1.13.10 4.2.7.2.686 [id number] [id number] [facility] 2022-02-20 04:17:00 2022-02-20 07:16:00 Emergency X CHRISTY HOLLIDAY [facility] [[email or web address]] ERT [id number] [facility] 2022-02-20 04:17:00 2022-02-20 07:16:00 Emergency Christy Holliday [facility] 1.2.840.114 350.1.13.10 4.2.7.2.686 [id number] [id number] [facility] 2021-02-03 11:10:00 2021-02-03 11:10:00 Outpatient DENISE CAMPO [facility] [id number] [facility] 2021-01-13 11:20:00 2021-01-13 11:20:00 Outpatient [facility] [id number] [facility] 2020-11-10 08:20:00 2020-11-10 08:20:00 Outpatient KARLEY ESTRADA [facility] [id number] [facility] Results Test Description Test Time Test Comments Results Result Co mments Source [facility] + Lactic [id number] 20:52:47* Test Item Value Reference Range Interpretation Comme nts PH (test code = 2) 7.39 7.35-7.45 PCO2 (test code = 4409006398) 42 35-45 PO2 (test code = 2539157948) 76 80-100 L HCO3 (test code = 3189804881) 25 22-26 BE (test code = 4677717881) -0.1 -3.0-3.0 THB (test code = 2395455052) 14.3 g/dL 13.5-18.0 %O2HB (test code = 5575975941) 85.8 % 94.0-99.0 L %COHB ART (test code = 6992144335) 9.0 % 0.0-1.5 H %METHB ART (test code = 9753522635) 0.3 % 0.4-1.5 L VOL%O2 ART (test code = 2830214634) 17.3 % 15.0-23.0 NA (test code = 5921038937) 140 mmol/L 135-145 K+ (test code = 9068175854) 4.1 mmol/L 3.5-5.0 AC CA IONZ (test code = 2624017319) 4.50 mg/dL 4.50-5.30 GLUCOSE (test code = 2059755841) 105 mg/dL 70-110 LACTIC ACID (test code = 6549946299) 2.60 mmol/L 0.50-2.20 H Lab Interpretation (test cod e = 58680-2) [facility]normal [facility] [id number] 20:34:14* Test Item Value Reference Range Interpretation Comme nts TROPONIN I (test code = 4970598601) 0.008 ng/mL <=0.034 LOUISE (test code = [...] of biotin. Lab Interpretation (test code = 78745-4) Normal [facility] Ghs-[id number] 20:31:35* Test Item Value Reference Range Interpretation Comme nts NT-proBNP (test code = 34926-9) 188 pg/mL <=125 LOUISE (test code = LOUISE) Result Indeterminate-Consid er causes of NT-proBNP elevation other than Heart failure such as acute coronary syndrome, pulmonary embolism, pulmonary hypertension, sepsis, stroke, and renal dysfunction. Lab Interpretation (test code = 62079-9) [facility] (31289)2024-02-08 20:21:10* Test Item Value Reference Range Interpretation Comme nts NA (test code = 6329207962) 135 mmol/L 135-145 K (test code = 9800471455) 4.5 mmol/L 3.5-5.0 CL (test code = 4904552208) 100 mmol/L 98-108 CO2 TOTAL (test code = 5515589853) 22 mmol/L 23-31 L AGAP (test code = 4091175327) 13 2-16 BUN (test code = 5040074874) 8 mg/dL 7-23 GLUCOSE (test code = 4249622636) 97 mg/dL 70-110 CREATININE (test code = 2160-0) 0.65 mg/dL 0.60-1.25 TOTAL BILI (test code = 3375042593) 0.4 mg/dL 0.1-1.1 CALCIUM (test code = 2552600183) 9.4 mg/dL 8.6-10.6 T PROTEIN (test code = 9719350443) 8.2 g/dL 6.3-8.2 ALBUMIN (test code = 5001551495) 4.7 g/dL 3.5-5.0 ALK PHOS (test code = 8681077234) 76 U/L 34-122 ALTv (test code = 1742-6) 33 U/L 5-50 AST(SGOT) (test code = 9988142067) 54 U/L 13-40 H eGFR (test code = 65896-5) 111.3 mL/min/1.73m2 CKD-EPI eGFR (2020). Assuming creatinine has been stable day-to-day for at least three months, the eGFR indicates Category G1 (>= 90 mL/min/1.73 m2) Lab Interpretation (test code = 28933-1) Abnormal [facility] Hospital[facility]esium2024-04-01 20:21:10* Test Item Value Reference Range Interpretation Comme nts MAGNESIUM (test code = 2294922827) 2.1 mg/dL 1.7-2.4 Lab Interpretation (test cod e = 88588-5) [facility] 1 [id number] 20:07:21EXAM: XR CHEST 1 VW COMPARISON: 01/14/2024 HISTORY: sob FINDINGS: Lungs: Slightly hyperexpanded lungswith subtle progression of interstitialprominence. Trace pleural effusions could be present. Heart/Mediastinum: Stable cardiomegaly. Bones and soft tissues: No osseous abnormality is visualized.[facility] Cbc with [id number] 20:04:26* Test Item Value Reference Range Interpretation [...] 33.8 g/dL 31.2-35.0 RDW-SD (test code = 28192-7) 50.5 fL 38.5-51.6 RDW-CV (test code = 788-0) 14.3 % 12.1-15.4 PLT (test code = 777-3) 206 150-328 MPV (test code = 49688-5) 9.1 fL 9.8-13.0 L NRBC/100 WBC (test code = 3157212334) 0.0 0.0-10.0 NRBC x10^3 (test code = 6283714393) See_Comment [Automated messa ge] The system which generated this result transmitted reference range: 10*3/?L. The reference range was not used to interpret this result as normal/abnormal. GRAN MAT (NEUT) % (test code = 770-8) 81.0 % IMM GRAN % (test code = 4987158004) 1.20 % LYMPH % (test code = 736-9) 10.9 % MONO % (test code = 5905-5) 6.8 % EOS % (test code = 713-8) 0.0 % BASO % (test code = 706-2) 0.1 % GRAN MAT x10^3(ANC) (test code = 2625271410) 9.31 10*3/uL 1.99-6.95 H IMM GRAN x10^3 (test code = 7248087261) 0.14 10*3/uL 0.00-0.06 H LYMPH x10^3 (test code = 731-0) 1.25 10*3/uL 1.09-3.23 MONO x10^3 (test code = 742-7) 0.78 10*3/uL 0.36-1.02 EOS x10^3 (test code = 711-2) 0.06-0.53 L BASO x10^3 (test code = 704-7) 0.01-0.09 Lab Interpretation (test code = 95063-1) [facility] (59567)2023-12-23 04:53:26* Test Item Value Reference Range Interpretation Comme nts NA (test code = 5089162342) 135 mmol/L 135-145 K (test code = 8631533364) 3.2 mmol/L 3.5-5.0 L CL (test code = 2429886633) 104 mmol/L 98-108 CO2 TOTAL (test code = 3459232018) 23 mmol/L 23-31 AGAP (test code = 3816927137) 8 2-16 BUN (test code = 1366270366) 11 mg/dL 7-23 GLUCOSE (test code = 6376504707) 82 mg/dL 70-110 CREATININE (test code = 2160-0) 0.64 mg/dL 0.60-1.25 TOTAL BILI (test code = 6901703415) 0.5 mg/dL 0.1-1.1 CALCIUM (test code = 8658311094) 8.8 mg/dL 8.6-10.6 T PROTEIN (test code = 8413568674) 6.7 g/dL 6.3-8.2 ALBUMIN (test code = 1538918516) 4.1 g/dL 3.5-5.0 ALK PHOS (test code = 3046886183) 46 U/L 34-122 ALTv (test code = 1742-6) 21 U/L 5-50 AST(SGOT) (test code = 8248876022) 43 U/L 13-40 H eGFR (test code = 49779-7) 111.8 mL/min/1.73m2 CKD-EPI eGFR (2020). Assuming creatinine has been stable day-to-day for at least three months, the eGFR indicates Category G1 (>= 90 mL/min/1.73 m2) Lab Interpretation (test code = 21871-4) [facility] 04:53:26* Test Item Value Reference Range Interpretation Comme nts LIPASE (test code = 8475465743) 105 U/L 0-220 Lab Interpretation (test cod e = 15157-0) Normal [facility]CBC WITH [id number] 04:34:24* Test Item Value Reference Range Interpretation [...] 33.0 g/dL 31.2-35.0 RDW-SD (test code = 55399-5) 50.9 fL 38.5-51.6 RDW-CV (test code = 788-0) 13.7 % 12.1-15.4 PLT (test code = 777-3) 232 150-328 MPV (test code = 85887-8) 8.7 fL 9.8-13.0 L NRBC/100 WBC (test code = 6123119776) 0.0 0.0-10.0 NRBC x10^3 (test code = 7322188751) See_Comment [Automated messa ge] The system which generated this result transmitted reference range: 10*3/?L. The reference range was not used to interpret this result as normal/abnormal. GRAN MAT (NEUT) % (test code = 770-8) 58.8 % IMM GRAN % (test code = 8005320092) 0.90 % LYMPH % (test code = 736-9) 27.8 % MONO % (test code = 5905-5) 10.5 % EOS % (test code = 713-8) 1.3 % BASO % (test code = 706-2) 0.7 % GRAN MAT x10^3(ANC) (test code = 1820796096) 5.68 10*3/uL 1.99-6.95 IMM GRAN x10^3 (test code = 4511344627) 0.09 10*3/uL 0.00-0.06 H LYMPH x10^3 (test code = 731-0) 2.69 10*3/uL 1.09-3.23 MONO x10^3 (test code = 742-7) 1.02 10*3/uL 0.36-1.02 EOS x10^3 (test code = 711-2) 0.13 10*3/uL 0.06-0.53 BASO x10^3 (test code = 704-7) 0.07 10*3/uL 0.01-0.09 Lab Interpretation (test code = 28181-2) [facility] W [id number] 03:32:43Exam: CT Abdomen and Pelvis With Contrast, [...] acute osseous abnormality.Soft tissues: Small fat-containing inguinal hernias.[facility] HospitalEthanol2024-02-13 02:32:24* Test Item Value Reference Range Interpretation Comme nts ALCOHOL (test code = 4962262025) 117 mg/dL LOUISE (test code = LOUISE) <10 Pyqlzktc26-852 Toxic>100 Depression of HULL INSPECTOR>400 Fatalities Reported [facility] Met[facility] Panel (34469)2023-12-22 02:31:43* Test Item Value Reference Range Interpretation Comme nts NA (test code = 4193732370) 133 mmol/L 135-145 L K (test code = 3795640335) 3.3 mmol/L 3.5-5.0 L CL (test code = 7458380373) 102 mmol/L 98-108 CO2 TOTAL (test code = 7960432055) 25 mmol/L 23-31 AGAP (test code = 3134917905) 6 2-16 BUN (test code = 1681667829) 11 mg/dL 7-23 GLUCOSE (test code = 3491885185) 75 mg/dL 70-110 CREATININE (test code = 5715793504) 0.51 mg/dL 0.60-1.25 L TOTAL BILI (test code = 2877359081) 0.5 mg/dL 0.1-1.1 CALCIUM (test code = 7396455071) 8.9 mg/dL 8.6-10.6 T PROTEIN (test code = 0487075762) 7.2 g/dL 6.3-8.2 ALBUMIN (test code = 3935081453) 4.5 g/dL 3.5-5.0 ALK PHOS (test code = 7887427727) 46 U/L 34-122 ALTv (test code = 1742-6) 15 U/L 5-50 AST(SGOT) (test code = 7031131066) 24 U/L 13-40 eGFR (test code = 32272-1) 119.7 mL/min/1.73m2 CKD-EPI eGFR (2020). Assuming creatinine has been stable day-to-day for at least three months, the eGFR indicates Category G1 (>= 90 mL/min/1.73 m2) Lab Interpretation (test code = 94268-8) [facility] Test Item Value Reference Range Interpretation Comme nts LIPASE (test code = 4731003283) 121 U/L 0-220 Lab Interpretation (test cod e = 35685-5) [facility] / [id number] 02:21:02* Test Item Value Reference Range Interpretation Comme nts PROTIME PATIENT (test code = 5964-2) 10.5 10.1-12.6 INR (test code = 6301-6) 0.9 Normal INR <1.1; Warfarin Therapeutic range 2.0 to 3.0 or 2.5 to 3.5, depending upon the indications. Lab Interpretation (test code = 50405-5) Normal [facility] with [id number] 02:14:04* Test Item Value Reference Range Interpretation [...] 34.0 g/dL 31.2-35.0 RDW-SD (test code = 93075-6) 49.1 fL 38.5-51.6 RDW-CV (test code = 788-0) 13.5 % 12.1-15.4 PLT (test code = 777-3) 260 150-328 MPV (test code = 17031-5) 8.7 fL 9.8-13.0 L NRBC/100 WBC (test code = 5768535566) 0.0 0.0-10.0 NRBC x10^3 (test code = 4261804204) See_Comment [Automated messa ge] The system which generated this result transmitted reference range: 10*3/?L. The reference range was not used to interpret this result as normal/abnormal. GRAN MAT (NEUT) % (test code = 770-8) 64.3 % IMM GRAN % (test code = 8850468093) 0.90 % LYMPH % (test code = 736-9) 24.2 % MONO % (test code = 5905-5) 9.1 % EOS % (test code = 713-8) 0.7 % BASO % (test code = 706-2) 0.8 % GRAN MAT x10^3(ANC) (test code = 7729757606) 8.73 10*3/uL 1.99-6.95 H IMM GRAN x10^3 (test code = 8903613377) 0.12 10*3/uL 0.00-0.06 H LYMPH x10^3 (test code = 731-0) 3.28 10*3/uL 1.09-3.23 H MONO x10^3 (test code = 742-7) 1.23 10*3/uL 0.36-1.02 H EOS x10^3 (test code = 711-2) 0.10 10*3/uL 0.06-0.53 BASO x10^3 (test code = 704-7) 0.11 10*3/uL 0.01-0.09 H Lab Interpretation (test code = 81006-3) [facility]29 10:16:22* Test Item Value Reference Range Interpretation Comments TROPONIN I (test code = 1018878957) 0.007 ng/mL See_Comment [Automated message] The system [...] of biotin. Lab Interpretation (test code = 56229-0) [facility] OMR-OZS3977-72-14 10:13:01* Test Item Value Reference Range Interpretation Comme nts NT-proBNP (test code = 6466365509) 52 pg/mL See_Comment [Automated message] The system which generated this result transmitted reference range: <=125. The reference range was not used to interpret this result as normal/abnormal. LOUISE (test code = LOUISE) Biotin has been reported to cause a negative bias, interpret results relative to patient's use of biotin. Lab Interpretation (test code = 76763-6) Normal [facility]. METABOLIC PANEL (91289)2022-02-20 10:04:02* Test Item Value Reference Range Interpretation Comme nts NA (test code = 4013902683) 137 mmol/L 135-145 K (test code = 3819263888) 3.6 mmol/L 3.5-5.0 CL (test code = 1104171264) 99 mmol/L 98-108 CO2 TOTAL (test code = 5669894869) 25 mmol/L 23-31 AGAP (test code = 2044853779) 2-16 BUN (test code = 2853601341) 6 mg/dL 7-23 L GLUCOSE (test code = 1011344756) 88 mg/dL 70-110 CREATININE (test code = 4702754371) 0.55 mg/dL 0.60-1.25 L TOTAL BILI (test code = 4957120237) 0.8 mg/dL 0.1-1.1 CALCIUM (test code = 7892725237) 8.9 mg/dL 8.6-10.6 T PROTEIN (test code = 1231281519) 7.5 g/dL 6.3-8.2 ALBUMIN (test code = 2951460229) 4.8 g/dL 3.5-5.0 ALK PHOS (test code = 0604562592) 113 U/L 34-122 ALTv (test code = 1742-6) 84 U/L 5-50 H AST(SGOT) (test code = 9926931598) 107 U/L 13-40 H eGFR (test code = 0975978420) mL/min/1.73m2 LOUISE (test code = LOUISE) Association [...] imaging tests). Lab Interpretation (test code = 71191-0) [facility], FPGJX9420-49-01 10:03:21* Test Item Value Reference Range Interpretation Comme nts LIPASE (test code = 1710322574) 193 U/L 0-220 Lab Interpretation (test cod e = 79362-3) Normal [facility]CB WITH BYJR8060-10-88 09:39:17* Test Item Value Reference Range Interpretation Comme nts WBC (test code = 6690-2) See_Comment [Automated [employer]] The system which generated this result transmitted reference range: 4.20 - 10.70 10*3/?L. The reference range was not used to interpret this result as normal/abnormal. RBC (test code = 789-8) See_Comment [Automated [employer]] The system which generated this result transmitted [...] g/dL 31.2-35.0 H RDW-SD (test code = 37931-2) 44.4 fL 38.5-51.6 RDW-CV (test code = 788-0) 11.9 % 12.1-15.4 L PLT (test code = 777-3) See_Comment [Automated messa ge] The system which generated this result transmitted reference range: 150 - 328 10*3/?L. The reference range was not used to interpret this result as normal/abnormal. MPV (test code = 84034-4) 9.2 fL 9.8-13.0 L NRBC/100 WBC (test code = 5998166273) See_Comment [Automated [employer] ssage] The system which generated this result transmitted reference range: 0.0 - 10.0 /100 WBCs. The reference range was not used to interpret this result as normal/abnormal. NRBC x10^3 (test code = 9598320372) <0.01 See_Comment [Automated [employer]] The system which generated this result transmitted reference range: 10*3/?L. The reference range was not used to interpret this result as normal/abnormal. GRAN MAT (NEUT) % (test code = 770-8) 69.9 % IMM GRAN % (test code = 6131579115) 1.50 % LYMPH % (test code = 736-9) 18.9 % MONO % (test code = 5905-5) 7.0 % EOS % (test code = 713-8) 1.9 % BASO % (test code = 706-2) 0.8 % GRAN MAT x10^3(ANC) (test code = 8983277197) 7.15 10*3/uL 1.99-6.95 H IMM GRAN x10^3 (test code = 5357918412) 0.15 10*3/uL 0.00-0.06 H LYMPH x10^3 (test code = 731-0) 1.93 10*3/uL 1.09-3.23 MONO x10^3 (test code = 742-7) 0.72 10*3/uL 0.36-1.02 EOS x10^3 (test code = 711-2) 0.19 10*3/uL 0.06-0.53 BASO x10^3 (test code = 704-7) 0.08 10*3/uL 0.01-0.09 Lab Interpretation (test code = 52846-2) [facility]normal [facility] Notes Date/Time Note Provider Source 2024-02-17 21:43:52 kwB8BKMWsMqBUzeeeDZeGuhfrRJxTLz2iNq Jxg3gnKabc4QZkUZZJlV7hbPutFeA6025-0 02-16T21:43:52 No answer in lobby. 98942-0Yttartppt department HmccBE2666-18-31P97:44:07[facility] department NoteTXT1.2.840.772327.1.13.104.2.7. 2.311646|[id number] for patient umqi77775-8PpzeHZLMJRIACEAIkgtmbafo C-CDA narrative datb336869249Bcdxgc J Hoot RN[address] Ff[id number] 6OCZNAOLNEUXLEUKEYACHKH2293-54-68Z2 1:44:071.2.840.051377.1.72.3.15|1.2 .840.095445.1.13.104.2.7.2.727879_2 [id number] Angy Turner RN [facility] 2024-02-17 21:42:10 AzUeZobFzNm8gGA0C4P7MtJsfn1q4XoIZdp S4iZP6pi1ImC8h48csfnPHh3mdRAQ1036-3 02-16T21:42:10 Pt's blood pressure cuff and pulse ox found lying on chair. Called for patient in lobby 2 times, no answer. No one in lobby. 26682-3Slifkrznd department XfbfEH8650-72-84X51:44:10[facility] department NoteTXT1.2.840.197828.1.13.104.2.7. 2.552274|[id number] for patient jzyi69737-7ZhmgZUIVIQRBUXETbcjrzxmz C-CDA narrative hssr905528423IosviSierra Samaniego RN[id number] 1ZIQTYJRIHHBIBEWCSGTNIW0614-37-62S9 1:44:101.2.840.623227.1.72.3.15|1.2 .840.481426.1.13.104.2.7.2.727879_2 [id number] Sierra Samaniego RN [facility] 2024-02-17 21:41:09 S5BKNCIH+vBen4Ce3tknmRomaDcCBUvy+IW iDSe5l74JOeu8b6PCWXqJcZ1OHbv98748-1 1:41:09 Pt not in lobby or in room. No answer in lobby. 17618-3Rzmdwqqco[address] [place] [address] JonxNW1751-72-09T65:41:40[facility] department NoteTXT1.2.840.465091.1.13.104.2.7. 2.261516|[id number] for patient bofp67582-5UabaSJBVRILNOOLSvfyjkdje C-CDA narrative text[id number] 7FLJOCVKFZUTKUTSXKFDINF8795-76-83M6 1:41:401.2.840.920047.1.72.3.15|1.2 .840.496981.1.13.104.2.7.2.727879_2 [id number] [facility] 2024-02-17 21:14:29 XOs6Jl9cYIJN8N41GF3Rxso5JrFPLA7lAts Q+ZQMtD9QUiTzH7puJ8nKwt/WBNkc7485-8 02-16T21:14:29 Pt not in FT- and no answer in lobby. 95216-1Sdtoirqwe department YkqvNU4718-46-95Q49:15:32[facility] department NoteTXT1.2.840.039526.1.13.104.2.7. 2.694043|[id number] for patient rjpn60088-5EcngDZOIMTRANICMlqklmqpn C-CDA narrative text[address] KgffCbdokskquKslwyuaifKIVG204778090 4CZNSMQZGILXJLQHEIELFBZ4980-26-52X3 1:15:321.2.840.030249.1.72.3.15|1.2 .840.294786.1.13.104.2.7.2.727879_2 [id number] [facility] 2024-02-17 20:48:50 4gG30uDaLIiVn8NVELbtnYsgR9ytMBP8U3P VYk3DfynAq9TKVE/JJ1/ga5GNQZ2x7566-6 02-16T20:48:50 Pt arrives ambulatory to ED c/o SOB, right upper abdominal pain, and left leg and hip pain. Pt states that he has been on prednisone for about 5 yrs which had given him osteoporosis which is causing his leg pain. Reports hx of COPD, o2 is generally @ 91 he says. 43244-1Srnjolnhb department Triage esycOU4875-40-92D96:53:54[facility] Triage noteTXT1.2.840.820425.1.13.104.2.7. 2.204461|5888469237KMVcthcilxa for patient vcwp86765-3Lwomtihzx department NoteLNNARRATIVEFormatted C-CDA narrative wjmd646213043Qdopjx L Williams [id number] 6WZXSMRTPLBJZQLOQFFMVNW2861-74-94N5 0:53:541.2.840.080802.1.72.3.15|1.2 .840.338620.1.13.104.2.7.2.727879_2 [id number] Leah Lizama RN [facility] 2024-02-08 21:37:56 LIbrAbBY51dch4jtsaCusbU24Z+ZlkfFHgJ le/EKy6FU9BINT8+V70V+vj6T3+ka4090-3 02-07T21:37:56 Pt left AMA 29384-9Ivgvzwkbq department NjeuIL5525-70-55T80:38:11[facility] NoteTXT1.2.840.067111.1.13.104.2.7. 2.520582|8217289056BQOxnmpwona for patient dhqr64723-4UzjuUGIYBHAGXJPKmgeipium C-CDA narrative fzpa143650472Sdics M Martinez RN[id number] 8MWRYKVBQEVLGIYQHOCMEJN6226-75-86N6 1:38:111.2.840.778948.1.72.3.15|1.2 .840.283723.1.13.104.2.7.2.727879_2 [id number] Kylie Foster RN [facility] 2024-02-08 21:32:00 S975iIerTN/DzTBflIHMoedlxyOSJI5IjxJ 9g/R94JmTeIexOB5FzPYUIDP7q2jO7045-6 02-07T21:32:00 Patient leaving AMA after self removing [...] ambulatory with steady gait, [place] 76356-1Bpaafeauy department BepyZY5056-42-40K34:40:32[facility] NoteTXT1.2.840.312333.1.13.104.2.7. 2.596285|7391956948ZFEnqenpxgq for patient jzmu06490-8ZchgNLKSARBXMEKTprxtwfsq C-CDA narrative text[address] OpzbLqbtsxkupBtvdfrxrxFFHV333312033 5FOAUWFLFFZKINSIDEUCRJQ5555-97-48T5 1:40:321.2.840.323792.1.72.3.15|1.2 .840.557543.1.13.104.2.7.2.727879_2 [id number] [facility] 2024-02-08 20:54:38 nU27CgF+cS4Cf5wY0viWCsOh/bCPCdxwEFA BrcHjguWKieqCQDRDhi4Rc8Dk6Tew6577-4 02-07T20:54:38 Pt states he uses O2 at home, portable O2 is broken 07975-3Lgabyvcdo department EpmuWM5751-47-92X95:55:13[facility] NoteTXT1.2.840.439785.1.13.104.2.7. 2.686854|4188832665XICpsgeahgy for patient fjzj51274-5ZassZVKWLMRAVQQNxtqiszje C-CDA narrative [id number] 9QVIGJICIRPOEOTPREADEZM0162-84-74V8 0:55:131.2.840.668788.1.72.3.15|1.2 .840.520728.1.13.104.2.7.2.727879_2 [id number] [facility] 2024-02-08 20:51:11 el/w2YTNZ+iHwoHacRlhtLbt39MP/x7DhYW 21asLb0rPk6jepaU3baDoCa+09nHn7214-6 02-07T20:51:11 Pt ambulates with cane 80816-9Wtnyxqnuq department EpwcBI4950-91-88T36:51:26[facility] NoteTXT1.2.840.747947.1.13.104.2.7. 2.997096|4843432515GOMrxeompwv for patient webq88779-8NldmQRPWNGOVDVBQphsrvjtw C-CDA narrative [id number] 5LVXGVZJWTHBUQYNDJPNHIG3880-93-97W1 0:51:261.2.840.109568.1.72.3.15|1.2 .840.501862.1.13.104.2.7.2.727879_2 [id number] [facility] 2024-02-08 20:43:13 1WedzfunBEuTcUOOuR898qM/9GbsgI+2tFK wSCRRa/jxCVb/9ffxnwQNTmp/wQXb0781-2 02-07T20:43:13 CC: Pt arrives SOB after leaving [place] earlier in the shift. He reports he [...] 3 BC powders and drank 3 beers." 50957-5Nswzqzcjx department Triage qxchZW6089-63-71W09:48:36[facility] Triage noteTXT1.2.840.461417.1.13.104.2.7. 2.738934|[id number] for patient obfy50049-2Ejvwftouq department NoteLNNARRATIVEFormatted C-CDA narrative zuvj699644065Pkqevp R Shehadeh RN[address] MixpUmmglrkovAmoglbgyvZFET527498584 7PBWWLUZJCIIPXJSIAOSNNP0773-96-12E6 0:48:361.2.840.864347.1.72.3.15|1.2 .840.803917.1.13.104.2.7.2.727879_2 [id number] Leah King RN [facility] 2024-02-08 17:04:05 j5Asouf+bVy6OrMCHMuPNAChnRdGF6hs9S+ vXQOnp/Gafi/Py2YqQz6YROk5UpOr6837-9 4-01T17:04:05 Patient walked to the nurses station and stated "I have another emergency and I have to leave right now. I need this IV taken out immediately."Encouraged patient to stay and he stated "I have to leave immediately and I don't want to take this out myself" IV d/c at this time and patient ambulated out of the department with a steady gait. 28253-6Tvopxkbir department HyttUB8998-28-27L60:05:22[facility] department NoteTXT1.2.840.732363.1.13.104.2.7. 2.763474|8387532655YNSszypcnvq for patient vadv25192-5JznrNHDVLQHEETAKlysruair C-CDA narrative isom785207366Gzxm M Hayes RN[address] BzpiEbhwsnetmHgpjmqynaHFOI411511768 6QDASNPFMKQLETCIBMJDBWQ3937-92-52L8 7:05:221.2.840.934929.1.72.3.15|1.2 .840.367784.1.13.104.2.7.2.727879_2 [id number] Allison Zhang RN [facility] 2024-02-08 14:23:02 jaytkxKotjOxpAxJ4u7loYj0dV0L/Z3pRfm uswrhKjDYJwQ/kOvQbcRd0MhZnwDy3800-1 4-01T14:23:02 Pt ambulates with a cane 83713-8Mwkkgqeve department KgzwYK9367-32-52A33:23:12[facility] department NoteTXT1.2.840.687211.1.13.104.2.7. 2.809171|7803122343YJSslridlha for patient sulc44994-9UlnqGZGMYPEHOCOTaarefeuv C-CDA narrative uozq469916102Pthje Raul Cristian RN[id number] 1AILLXMSSNCTLBRMJIMNLZI2120-10-73H1 4:23:121.2.840.662617.1.72.3.15|1.2 .840.459683.1.13.104.2.7.2.727879_2 [id number] Kylie Carter Cristian RN [facility] 2024-02-08 14:13:15 Z2p148/70XmCW0Iq5demulgZnqCGoXbWlpm AZdyonNT4ID7U8SbFUk8WEbqgNHQl4371-0 4:13:15 Pt has taken 8-packets of BC [...] only thing that helps." Face is flushed. 21300-3Kegegcclx department Triage hgehCR7844-73-86W25:17:26[facility] Triage noteTXT1.2.840.962675.1.13.104.2.7. 2.782860|5134977972NUZpvcqmvpj for patient dkxj25423-5Avkawomnr department NoteLNNARRATIVEFormatted C-CDA narrative zxmk645461639Mxckmpo Fief RN[id number] 9AGKJPRAEOILMIVBDAQHKUS4716-23-85N6 4:17:261.2.840.285248.1.72.3.15|1.2 .840.885670.1.13.104.2.7.2.727879_2 [id number] Hali Aviles RN [facility] 2024-01-14 06:16:25 9Nhb6ZgkPi5Qo1b5haJJMzf5Qq9C/FhSiR0 TI9bKO5rzxozYub+tZyK6kRvgqvEn4222-5 06:16:25 Pt given printed and verbal discharge [...] w/d, pt leaving in no apparent distress, 42279-3Swwqvfnuz department UbjhMI7491-49-72M03:17:20[facility] department NoteTXT1.2.840.656170.1.13.104.2.7. 2.214053|1282641292HBOltjgyzir for patient ukxa72229-2HdasMBHSEBXBRSYXetdtvzuj C-CDA narrative textUT[address] PentNaapnpzccHbonwpdjyXLMT664564582 5OCRZKOSVWSOHTLLZVUGQVC2017-39-76Z3 6:17:201.2.840.476636.1.72.3.15|1.2 .840.358665.1.13.104.2.7.2.727879_2 [id number] [facility] 2024-01-14 04:49:43 u2BDuwbGQCxRo9j8vmO0ZWBpuq8Ye+E0JFo 2h9DY2vGe2jgiICabUozMi7qoSyXu8966-7 3-07T04:49:43 CC: "My COPD is acting up [...] ext without difficulty, amb with steady gait 81170-6Qyhwdqdrm department Triage dchxWJ0010-03-05Y80:55:49[facility] Triage noteTXT1.2.840.063088.1.13.104.2.7. 2.884573|[id number] for patient fgpu70345-6Vniqyfgje department NoteLNNARRATIVEFormatted C-CDA narrative hlmj660231355Dumghx R Shehadeh RN[address] QiesYovvtqejqAtqxhmsakFDFF369499837 4UMFGKIVVQHRUYELXHBMVBU0075-85-53H5 4:55:491.2.840.019743.1.72.3.15|1.2 .840.855099.1.13.104.2.7.2.727879_2 [id number] Leah King RN [facility] 2024-01-14 04:43:00 Goq18tmhM1gnRYgXemAok7k7HfNkke1G7jg djsmrB+2nuj1ZfkwkumGj61nMo3d/07T04:43:00Associated Order(s): EKG-12 Lead ROUTINE ONCEPre-Procedure Diagnose(s): Chest pain, unspecified typePost-Procedure Diagnose(s): Chest pain, unspecified type [facility] [[email or web address] Emergency Department NotePatient Name: Randy Gambinote of : 1970 53 year old maleTreatment Room: TX1/AJ8Botzxcf Record Number: [id number] Care Physician: Adrianna King Escorted by: Family [5]Mode of Arrival: Personal means [1]EMS Treatment 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 METABOLIC PANEL (90106) - AbnormalResult Value Ref RangeNA 138 135 [...] 49 (*) 13 - 40 U/LeGFR 93.3 mL/min/1.13g9CQY WITH DIFF - AbnormalWBC 11.59 (*) 4.20 [...] 220 U/LCOVID-19 (ID NOW RAPID TESTING) - ZyqfiwBCOH-WvM-3 Rapid ID NOW Not Detected Not DetectedETHANOLALCOHOL 62 mg/dLEKG:If EKG completed, see Procedure Note.Orders and Treatments:Orders Placed This EncounterProcedures XR CHEST 1 VW TROPONIN I COMP. METABOLIC PANEL (71461) LIPASE, SERUM CBC WITH DIFF N-Terminal Pro-Bnp Ethanol COVID-19 (ID NOW TESTING) Lab Only COVID Interpretation O2 Per ProtocolOrders Placed This EncounterMedications morpHINE (4 mg/mL) injection 4 mg ondansetron (ZOFRAN (PF)) injection 4 mg ipratropium-albuteroL (DUONEB) 0.5 mg-3 mg(2.5 mg base)/3 mL nebulizer solution 3 mLFirst Provider Eval:ED EventsDate/Time Event User Piqeehrq83/07/24 0510 Medical Screening Begins JAC NAVARRO MD --01/14/24 0510 First Provider Evaluation JAC NAVARRO MD --ED COURSEDiagnosis/Impression as of 01/14/24 0605Chest pain, unspecified typeBronchitisProcedures:EKG-12 Lead ROUTINE ONCEDate/Time: 01/14/2024 5:24 AMPerformed by: Jac Navarro MDAuthorized by: Jac Navarro MDECYovani interpreted by ED Physician in the absence of a welding pantograph operator: yesPrevious ECG:Previous ECG: Compared to currentSimilarity: [...] on fileFollow-up:Electronically signed by:Jac Navarro MD01/14/24 0600 89373-9Ixaubsxmg Emergency department YhmnSU1821-01-01U18:00:50Physician Emergency department NoteTXT1.2.840.368001.1.13.104.2.7. 2.366695|[id number] for patient hnvv61957-3Unhhzwqpu department NoteLNNARRATIVEFormatted C-CDA narrative text[address] Yyf[id number] 4SLQFAEZWAQRSCGAYULNKRT8920-42-04A8 6:00:501.2.840.576472.1.72.3.15|1.2 .840.930555.1.13.104.2.7.2.727879_2 [id number] [facility] 2023-12-22 23:12:16 OfR1+pzItkMtsS1VQiZY7agCIhc7PhOGfC0 dJZzYmzmvTIRaZxTz58i8IbLdh4fW9783-3 12-22T23:12:16 Pt given printed and verbal discharge [...] with steady gait, in no apparent distress, 63236-4Macauescz department AtgoSI2422-11-05B09:13:50[facility] department NoteTXT1.2.840.668056.1.13.104.2.7. 2.896644|[id number] for patient cbow06231-1HxqkVVSSWZLTLQBNkycurytn C-CDA narrative vlqo172000972MkpgsMary Magaña RN[address] EqmwO[id number] 1OCWUQMVBMSSEIVIMKZFSIH3554-01-71P2 3:13:501.2.840.003478.1.72.3.15|1.2 .840.337670.1.13.104.2.7.2.727879_2 [id number] Mary Magaña RN [facility] 2023-12-22 21:41:55 zRToM3QdtD97YzUkrqetsPOeHXLIWCpdQZl oNOBUBgietxMvaGygj6z+8+DJO4T87193-5 12-22T21:41:55 Pt arrives ambulatory to ED reporting bleeding with stools and 10/10 abdominal pain. States he was here last night but had to leave before receiving results d/t having to work. Says the pain became worse so he came back in. 75310-2Oqnteksgf department Triage gtfxVL1273-06-07F67:48:52[facility] Triage noteTXT1.2.840.364238.1.13.104.2.7. 2.347127|[id number] for patient bjip89868-9Xkletmgnd department NoteLNNARRATIVEFormatted C-CDA narrative prdv078620631Otjgnk L Dl RN[id number] 3UBYMVNDXKPQNDMALOUDLRS2345-69-50H9 1:48:521.2.840.428544.1.72.3.15|1.2 .840.550103.1.13.104.2.7.2.727879_2 [id number] Leah Quarles Dl RN [facility] 2023-12-21 21:31:00 Oo7OoQzWS+e3JpT7cI/FV7P2Jxax90Bj6b9 11zog+MFtBGITC7I+uzh0Hj4m2w2S1720-6 12-21T21:31:00 Patient leaving AMA,discussed risks of leaving against medical advice, Dr. Maciel aware and notified of patient's decision.Patient encouraged to seek medical attention for any new/prolonged/worsening of symptoms and stressed importance of follow up with a medical provider as soon as possible. AMA form explained, patient signed form.IV d'cd, dressing to site.Patient leaving ambulatory with steady gait, appears in no distress. 67123-3Ynxehunrq department CbrgKP4613-82-04U32:38:39[facility] NoteTXT1.2.840.533212.1.13.104.2.7. 2.122916|[id number] for patient fcgn08653-8EravYMMSAZCENHVMwoutvhxj C-CDA narrative [id number] Magaña RN[id number] 6VZTUEXOOORSZJFNWFVMOCS9374-76-77M1 1:38:391.2.840.361627.1.72.3.15|1.2 .840.716254.1.13.104.2.7.2.727879_2 [id number] Mary Magaña RN [facility] 2023-12-21 21:30:00 5Pw6Kf+VxzB1EVL28puemLghVnTgFEVBdhr 1x3LR+lsKRM8kW6XD96pHW/pqRrhF5734-3 12-21T21:30:00 Pt wished to leave AMA. Pt states " yall were wonderful but 3am come real early." 78012-1Yucckryfm department IgcnXT5388-22-59S30:36:58[facility] NoteTXT1.2.840.206311.1.13.104.2.7. 2.765239|[id number] for patient pdpq96437-2BxpjDFJEZBVHXSIJhopgxmvv C-CDA narrative [address] Dhvg[id number] 9YQNTYAVEBZMNDKVCSCSGWS5879-24-05L0 1:36:581.2.840.224669.1.72.3.15|1.2 .840.041894.1.13.104.2.7.2.727879_2 [id number] [facility] 2023-12-21 21:26:22 KVglsHuKgkVehhWZ7i0FwMwIaUXZawtUlDY 2REZeL4tEQl8qcb7BPrRJ3p9WnAgk0476-6 12-21T21:26:22 Pt asking to go outside and smoke, wants to go home and eat. Pt educated on risks of leaving AMA. Provider informed pt is in pain. 78231-7Zxnqarsis department NwmyWC3105-66-40Q10:33:35[facility] NoteTXT1.2.840.706556.1.13.104.2.7. 2.736533|[id number] for patient vibi57538-7ObrnWLSSUILANJANxbmsqxaq C-CDA narrative [id number] R Shehadeh RN[address] Rm[id number] 0BNFCVAGWHYAWSMLPZNAJIA0773-79-83V9 1:33:351.2.840.084055.1.72.3.15|1.2 .840.119424.1.13.104.2.7.2.727879_2 [id number] Leah King RN [facility] 2023-12-21 19:31:50 7ux9+0fyRPl4TxshW6aWY4kRNeVAr0dHqvs TyTIgiE9afPcCp6jCyNDu3el+CXjL3996-7 12-21T19:31:50 Pt arrived ambulatory with complaints of bright red rectal bleeding and generalized abdominal pain this afternoon. Pt states his stool was normal consistency but continuous bright red blood. Denies this happening before.Pt is an alcoholic, had 2 beer [employer]. States he vomits all the time but not something new today. 65618-3Kmdzrviro department Triage jhbeFX4348-13-00U18:33:28[facility] Triage noteTXT1.2.840.722067.1.13.104.2.7. 2.560521|[id number] for patient zhfe66524-0Puoibssqt department NoteLNNARRATIVEFormatted C-CDA narrative [id number] D Roman RN[address] Go[id number] 6KFGZGCAYQZUVHDMDPTXFTG0276-53-29A0 9:33:281.2.840.919042.1.72.3.15|1.2 .840.247946.1.13.104.2.7.2.727879_2 [id number] Gabi Esqueda RN [facility] 2023-11-10 20:13:39 nqDcyJGOLr6XziLCSQe4BsgW94l/TlPnCn4 [facility]/CH661dN4MLdLbXUo8ovuPBieL6427-0 11-10T20:13:39 Pt requesting to leave AMA. ERP notified. Pt counseled to remain, risks of leaving AMA including discussed with pt. Pt continued to decline further ER evaluation at this time. AMA papers signed, witnessed, and placed on patient's chart. Pt left ambulatory. VS stable, no ataxia noted, GCS 15, A&Ox4. 77509-7Qfcaoeigp department QmpeIE7615-76-96I03:13:52Emergency department NoteTXT1.2.840.524850.1.13.104.2.7. 2.681529|[id number] for patient otru06123-1UkqlSANBTFKALLPWsbplmmff C-CDA narrative [id number] BRADFORD[address] Kh[id number] 1QWGAWGZFKEESBJZGTRIMYT0357-55-50V8 0:13:521.2.840.147017.1.72.3.15|1.2 .840.041315.1.13.104.2.7.2.727879_1 [id number] Briseida Medrano RN [facility] 2023-11-10 19:30:29 o2Or5/ScF6f5C4dvz+7HHtdmVtxF/EYpEtf BBRQilW2EFvR/qjKd67dTs4YP2t7m0389-9 11-10T19:30:29 Patient arrived to ED c/o SOB and COPD exacerbation. Symptoms started this morning. Patient wears 3L NC at home. Patient is a smoker. Patient states having the chills, diarrhea, and vomiting. States having sharp pains in chest from coughing. 03728-2Lgoidgbln department Triage esmvGZ7874-07-95M74:35:27[facility] Triage noteTXT1.2.840.019756.1.13.104.2.7. 2.279464|[id number] for patient gxxo50424-0Opzdpjkij department NoteLNNARRATIVEFormatted C-CDA narrative [id number]-Jlkov McInnis RN[address] Rf[id number] 3WHHSICSATDKTRJVUWKNXOS9828-22-49D8 9:35:271.2.840.889725.1.72.3.15|1.2 .840.535852.1.13.104.2.7.2.727879_1 [id number] Sreedhar Gomez RN [facility]
[2024-04-05] MEDS ORDERED: ASPIRIN 81 MG CHEWABLE TABLET ONE (12:17)
[2024-04-05 12:54] LABS: Absolute Basophils 0.1 K/uL (0-0.5); Absolute Eosinophils 0.1 K/uL (0-0.5); Absolute Lymphocytes (CBC) 1.2 K/uL (0.7-4.9); Absolute Monocytes 0.9 K/uL (0.1-1.3); Absolute Neutrophil 12.4 K/uL (1.8-8.0); Basophils % 0.6 % (0-1.3); Eosinophils % 0.4 % (0-4.4); Hematocrit 37.2 % (39.6-49.0); Hemoglobin 12.2 g/dL (13.6-17.9); Lymphocytes % 8.5 % (15.3-44.8); MCH 32.3 pg (27.0-35.0); MCHC 32.9 g/dL (32.0-36.0); MCV 98.2 fL (80-100); MPV 6.9 fL (7.6-11.3); Monocytes % 6.1 % (3.3-12.3); Neutrophils % 84.4 % (41.7-73.7); Platelets 336 thou/uL (152-406); RBC Red Blood Cell Count 3.79 M/uL (4.33-5.43); Red Cell Distribution Width 16.4 % (12.1-15.2)
[2024-04-05 13:09] LABS: Anion Gap 12.1 mEq/L (5.0-15.0); Magnesium 2.1 mg/dL (1.6-2.4); Potassium 4.1 mEq/L (3.5-5.1); Troponin High Sensitivity 5.4 pg/mL (<58.9)
[2024-04-05] MEDS ORDERED: KETOROLAC 30 MG/ML INJ ONE (13:14)
--- NOTE | 2024-04-05 13:21 | RAD REPORT ---
EXAM DESCRIPTION: [facility] Single View04/05/2024 12:48 pm CLINICAL HISTORY: Chest pain COMPARISON: April 04, 2024 FINDINGS: Previously described right middle lobe atelectasis appears partially resolved Left lung appears clear of acute infiltrate. The heart is mildly to moderately enlarged
--- NOTE | 2024-04-05 14:49 | ER ---
Nurse's Notes [facility] Name: Randy Briones Age: 53 yrs Sex: Male : 1970 Arrival Date: 04/05/2024 Time: 11:33 Bed 4 Private MD: Diagnosis: Chest pain, unspecified Presentation: 04/05 11:52 Chief complaint: Patient states: L sided CP has gotten worse the past three days. + ap3 SOB, no known fever. Coronavirus screen: Client denies travel out of the [place] in the last 14 days. At this time, the client does not indicate any symptoms associated with coronavirus-19. Ebola Screen: Patient denies travel to an Ebola-affected area in the 21 days before illness onset. Initial Sepsis Screen: Does the patient meet any 2 criteria? No. Patient's initial sepsis screen is negative. Does the patient have a suspected source of infection? No. Patient's initial sepsis screen is negative. Risk Assessment: Do you want to hurt yourself or someone else? Patient reports no desire to harm self or others. Onset of symptoms was April 03, 2024. 11:52 Method Of Arrival: EMS ap3 11:52 Acuity: CANDACE 3 ap3 Triage Assessment: 11:50 General: Appears distressed, uncomfortable, Behavior is calm, cooperative, appropriate ll1 for age. Pain: Complains of pain in L trunk Pain currently is 10 out of 10 on a pain scale. Cardiovascular: Reports chest pain, shortness of breath. Respiratory: Reports shortness of breath. Historical: - Allergies: 11:39 Lisinopril; ll1 - PMHx: 11:39 Alcoholism; COPD; Hepatitis B (Hypertension); home 02 3LNC PRN; Hypertension; ll1 Osteoporosis; - PSHx: 11:39 Amputation of left index finger; ll1 - Immunization history:: Adult Immunizations up to date. - Infectious Disease History:: Denies. - Social history:: Smoking status: Patient reports the use of cigarette tobacco products, smokes one pack cigarettes per day. Screenin:52 [facility] ED Fall Risk Assessment (Adult) History of falling in the last 3 months, nj1 including since admission No falls in past 3 months (0 pts) Confusion or Disorientation No (0 pts) Intoxicated or Sedated No (0 pts) Impaired Gait No (0 pts) Mobility Assist Device Used No (0 pt) Altered Elimination No (0 pt) Score/Fall Risk Level 0 - 2 = Low Risk Oriented to surroundings, Maintained a safe environment, Hourly rounding (assess needs \\T\\ fall precautionary measures) done. Abuse screen: Denies threats or abuse. Denies injuries from another. Nutritional screening: No deficits noted. Tuberculosis screening: No symptoms or risk factors identified. Assessment: 12:20 General: Appears in no apparent distress. comfortable, Behavior is calm, cooperative, [facility] appropriate for age. Pain: Complains of pain in chest, abdomen and neck Pain currently is 10 out of 10 on a pain scale. Neuro: Level of Consciousness is awake, alert, obeys commands, Oriented to person, place, time, situation. Cardiovascular: Patient's skin is warm and dry. Chest pain is located in left. Respiratory: Airway is patent Respiratory effort is even, unlabored. 13:15 Reassessment: Patient appears in no apparent distress at this time. Pt resting/sleeping [facility] at this time. 14:33 Reassessment: Patient appears in no apparent distress at this time. No changes from [facility] previously documented assessment. Patient and/or family updated on plan of care and expected duration. Pain level reassessed. Patient is alert, oriented x 3, equal unlabored respirations, skin warm/dry/pink. 14:40 Reassessment: Pt has activated call light. Upon this RN arrival to room, pt is out of [facility] bed, monitoring equipment off patient, pt states he has removed his IV access, shows me where he has disposed it and states "Im leaving". Upon this RN attempting to give education, pt starts walking out of room. Dr Benson aware of patient walking and approaches patient and talks to him. 14:54 Pain: Pain began 2-3 days ago. ll1 14:54 Pain: Pain does not radiate. 1 Vital Signs: 11:52 BP 123 / 93; Pulse 100; Resp 20; Temp 97.9; Pulse Ox 98% ; Weight 73.94 kg; Height 5 ap3 ft. 4 in. ; Pain 10/10; 12:53 BP 111 / 78; Pulse 89; Resp 15; Pulse Ox 96% ; nj1 13:25 BP 126 / 80; Pulse 79; Resp 19; Pulse Ox 95% ; nj1 14:33 BP 116 / 79; Pulse 91; Resp 18; Pulse Ox 99% on R/A; Pain 10/10; nj1 11:52 Body Mass Index 27.98 (73.94 kg, 162.56 cm) ap3 11:52 Pain Scale: Adult ap3 14:33 Pain Scale: Adult nj1 ED Course: 11:38 Patient arrived in ED. ll1 11:39 Arm band placed on. ll1 11:45 Aren Benson DO is Attending Physician. ms3 11:53 Triage completed. ap3 12:15 Liv Butler, BRIGETTE is Primary Nurse. nj1 12:17 Patient placed in an exam room, on a stretcher. ll1 12:20 Patient has correct armband on for positive identification. Bed in low position. Call nj1 light in reach. 12:20 Placed in gown. Provided Education on: call light, fall precautions. Client placed on nj1 continuous cardiac and pulse oximetry monitoring. NIBP monitoring applied. air sampling and monitoring on. 12:35 Missed attempt(s): 22 gauge in left hand. Bleeding controlled, band aid applied, nj1 catheter tip intact. 12:40 Inserted saline lock: 20 gauge in left upper arm, using aseptic technique. Blood nj1 collected. Ultrasound guided. Catheter tip well visualized within vasculature during placement. 12:50 XRAY Chest (1 view) In Process Unspecified. EDMS 14:48 Edin Frances DO is Referral Physician. ms3 14:54 No provider procedures requiring assistance completed. ll1 14:55 O2 via room air. ll1 14:55 IV discontinued, intact, bleeding controlled, No redness/swelling at site. Pressure ll1 dressing applied. Administered Medications: 12:20 Drug: Aspirin PO Chewable Tablet 324 mg PO once; 81 mg tablets x 4 Route: PO; nj1 13:00 Follow up: Response: No adverse reaction ko1 14:29 Drug: Ketorolac IVP 10 mg 10 mg IVP once Route: IVP; Site: left upper arm; nj1 14:52 Follow up: Response: No adverse reaction ll1 Medication: 14:54 VIS not applicable for this client. ll1 Outcome: 14:48 Discharge ordered by . ms3 14:54 Discharged to home ambulatory, ll1 14:54 Condition: stable 14:54 Discharge instructions given to patient, Instructed on discharge instructions, follow up and referral plans. Demonstrated understanding of instructions, follow-up care, left with verbal discharge instructions only 14:55 Patient left the ED. ll1 Signatures: Dispatcher [employer] EDMS Leah Olivo RN RN ap3 Estella Cano RN RN ll1 Aren Benson DO DO ms3 Yen Pearson RN RN ko1 Liv Butler RN RN nj1 Corrections: (The following items were deleted from the chart) 14:45 14:33 BP 116 / 79; Pulse 91bpm; Resp 18bpm; Pulse Ox 99% RA; nj1 nj1
--- NOTE | 2024-04-05 14:49 | EDPHYS ---
Physician Documentation [facility] Name: Randy Briones Age: 53 yrs Sex: Male : 1970 Arrival Date: 04/05/2024 Time: 11:33 Bed 4 Private MD: ED Physician Aren Benson HPI: 04/05 12:13 This 53 yrs old Male presents to ER via EMS with complaints of Chest Pain. ms3 12:13 53-year-old male with past medical history of alcoholism, COPD, hepatitis B, ms3 hypertension, osteoporosis presents to the emergency department for left-sided chest pain. Patient states he was recently diagnosed with pneumonia and admitted. Patient states during admission he needed to leave to take care of his and was discharged early. Patient states his discomfort is a 10/10. Patient denies any alleviating or inciting factors. Historical: - Allergies: 11:39 Lisinopril; ll1 - PMHx: 11:39 Alcoholism; COPD; Hepatitis B (Hypertension); home 02 3LNC PRN; Hypertension; ll1 Osteoporosis; - PSHx: 11:39 Amputation of left index finger; ll1 - Immunization history:: Adult Immunizations up to date. - Infectious Disease History:: Denies. - Social history:: Smoking status: Patient reports the use of cigarette tobacco products, smokes one pack cigarettes per day. ROS: 12:13 Constitutional: Negative for fever, and chills. Neck: Negative for injury, pain, and ms3 swelling, Respiratory: Negative for shortness of breath, cough, wheezing, and pleuritic chest pain, Abdomen/GI: Negative for abdominal pain, nausea, vomiting, diarrhea, and constipation, MS/Extremity: Negative for injury and deformity, Skin: Negative for injury, rash, and discoloration, 12:13 Cardiovascular: Positive for chest pain, Exam: 12:13 Constitutional: This is a well developed, well nourished patient who is awake, alert, ms3 and in no acute distress. Head/Face: Normocephalic, atraumatic. Neck: Trachea midline, no cervical lymphadenopathy. Supple, full range of motion without nuchal rigidity, or vertebral point tenderness. No Meningismus. Chest/axilla: Normal chest wall appearance and motion. Nontender with no deformity. Cardiovascular: Regular rate and rhythm with a normal S1 and S2. No gallops, murmurs, or rubs. Normal PMI, no JVD. No pulse deficits. Respiratory: Lungs have equal breath sounds bilaterally, clear to auscultation and percussion. No rales, rhonchi or wheezes noted. No increased work of breathing, no retractions or nasal flaring. Abdomen/GI: Soft, non-tender, with normal bowel sounds. No distension or tympany. No guarding or rebound. No evidence of tenderness throughout. Skin: Warm, dry with normal turgor. Normal color with no rashes, no lesions, and no evidence of cellulitis. 17:08 ECG was reviewed by the Attending Physician. ms3 Vital Signs: 11:52 BP 123 / 93; Pulse 100; Resp 20; Temp 97.9; Pulse Ox 98% ; Weight 73.94 kg; Height 5 ap3 ft. 4 in. ; Pain 10/10; 12:53 BP 111 / 78; Pulse 89; Resp 15; Pulse Ox 96% ; nj1 13:25 BP 126 / 80; Pulse 79; Resp 19; Pulse Ox 95% ; nj1 14:33 BP 116 / 79; Pulse 91; Resp 18; Pulse Ox 99% on R/A; Pain 10/10; nj1 11:52 Body Mass Index 27.98 (73.94 kg, 162.56 cm) ap3 11:52 Pain Scale: Adult ap3 14:33 Pain Scale: Adult nj1 MDM: 12:00 Patient medically screened. ms3 12:13 Differential diagnosis: abnormal EKG, acute myocardial infarction, acute pericarditis. ms3 14:45 Data reviewed: vital signs, nurses notes, lab test result(s), EKG, radiologic studies, ms3 and as a result, I will discharge patient. Consideration of Admission/Observation Escalation of care including admission/observation considered. I considered the following discharge prescriptions or medication management in the emergency department Medications were administered in the Emergency Department. See MAR. Independent interpretation of the following test(s) in the Emergency Department EKG: See my EKG interpretation above alarm security or surveillance monitor: rate is 90 beats/min, Rhythm is normal sinus rhythm, with no ectopy. Counseling: I had a detailed discussion with the patient and/or guardian regarding the historical points, exam findings, and any diagnostic results supporting the discharge/admit diagnosis, lab results, radiology results, the need for outpatient follow up, to return to the emergency department if symptoms worsen or persist or if there are any questions or concerns that arise at home. Refusal of service: The patient/guardian displays adequate decision making capability and despite a detailed discussion of alternatives, benefits, risks, and consequences refuses: Admission to the hospital for further work-up and treatment, all lab tests. ED course: Patient states he does not wish to wait in the emergency department any longer at this time. Discussed with patient's second troponin pending at this time. Patient states he wishes to leave the emergency department. Discussed with patient risks of or disability. Patient accepts risks. Discussed with patient we will come back to the emergency department at any time to continue his care.. 04/05 12:00 Order name: Basic Metabolic Panel; Complete Time: 14:08 ms3 04/05 12:00 Order name: CBC with Diff; Complete Time: 17:05 ms3 04/05 12:00 Order name: Magnesium; Complete Time: 14:08 ms3 04/05 12:00 Order name: Troponin HS; Complete Time: 14:08 ms3 04/05 14:09 Order name: Troponin HS; Complete Time: 17:05 em1 04/05 12:00 Order name: XRAY Chest (1 view); Complete Time: 14:08 ms3 04/05 12:00 Order name: EKG; Complete Time: 12:01 ms3 04/05 12:00 Order name: Cardiac monitoring; Complete Time: 12:35 ms3 04/05 12:00 Order name: EKG - Nurse/Tech; Complete Time: 12:47 ms3 04/05 12:00 Order name: IV Saline Lock; Complete Time: 12:47 ms3 04/05 12:00 Order name: Labs collected and sent; Complete Time: 12:47 ms3 04/05 12:00 Order name: O2 Per Protocol; Complete Time: 12:35 ms3 04/05 12:00 Order name: O2 Sat Monitoring; Complete Time: 12:35 ms3 EC:08 Rate is 107 beats/min. Rhythm is regular. QRS Fulda is Normal. MD interval is normal. ms3 QRS interval is normal. Clinical impression: Sinus tachycardia. Interpreted by me. Reviewed by me. Administered Medications: 12:20 Drug: Aspirin PO Chewable Tablet 324 mg PO once; 81 mg tablets x 4 Route: PO; nj1 13:00 Follow up: Response: No adverse reaction ko1 14:29 Drug: Ketorolac IVP 10 mg 10 mg IVP once Route: IVP; Site: left upper arm; nj1 14:52 Follow up: Response: No adverse reaction ll1 Disposition Summary: 04/05/24 14:48 Discharge Ordered Notes: Location: Home ms3 Condition: Stable ms3 Diagnosis - Chest pain, unspecified ms3 Followup: ms3 - With: Edin Frances DO - When: 2 - 3 days - Reason: Recheck today's complaints Discharge Instructions: - Discharge Summary Sheet ms3 - Nonspecific Chest Pain, Adult ms3 Forms: - Medication Reconciliation Form ms3 - Antibiotic Education ms3 - Prescription Opioid Use ms3 - Patient Portal Instructions ms3 - Leadership Thank You Letter ms3 Signatures: Dispatcher [employer] EDMS Leah Olivo RN RN ap3 Estella Cano RN RN ll1 Aren Benson DO DO ms3 Liv Butler RN RN nj1 Yen Pearson RN ko1 Corrections: (The following items were deleted from the chart) 14:09 14:09 Troponin High Sensitivity+[id number].LAB.BRZ ordered. EDMS EDMS
[2024-04-05 14:59] VITALS: TEMP 97.9
[2024-04-05 15:21] VITALS: BP 116/79; O2SAT 99
[2024-04-05 15:31] LABS: Band Neutrophils 1 % (0-1); Differential Total Cells Count 100; Eosinophils 1 % (0-3); Lymphocytes 8 % (15-42); Metamyelocytes 1 % (0-0); Monocytes 5 % (0-10); Segmented Neutrophils 84 % (40-80)
[2024-04-05 15:32] LABS: Blood Morphology Comment NOT SEEN (NOT SEEN); Platelet Estimate ADEQ
--- NOTE | 2024-04-08 17:03 | EKG ---
Test Date: 2024-04-05 Test Time: 12:25:31 Dean Of Faculty: REI MEASUREMENT RESULTS: Intervals: Rate: 107 SD: 126 QRSD: 100 QT: 354 QTc: 472 [place]: P: 64 SD: 126 QRS: 73 T: 70 INTERPRETIVE STATEMENTS: Sinus tachycardia Incomplete right bundle branch block Borderline ECG Compared to ECG 04/03/2024 22:51:26 Incomplete right bundle-branch block now present Sinus rhythm no longer present Electronically Signed On 04-08-24 16:52:34 CDT by Rosalino Albert
== END 2024-04-05 14:55 | disposition home or self-care (01) ==
LOC: ER 11:33
DX: R07.89 Other chest pain (principal); F10.20 Alcohol dependence, uncomplicated; I10 Essential (primary) hypertension; J44.9 Chronic obstructive pulmonary disease, unspecified; Z99.81 Dependence on supplemental oxygen; F17.210 Nicotine dependence, cigarettes, uncomplicated
CPT/HCPCS: 36415; 71045; 80048; 83735; 84484; 85025; 93005; 96374; 99285

== ENCOUNTER 2024-04-05 17:43 | Inpatient (IN) | payer OTHER ==
--- OUTSIDE RECORDS SUMMARY | 2024-04-05 17:49 | XMS REPORT | Continuity of Care Document ---
Author Name Unknown Address [address] [facility] [address] [place] [address] [facility] Address [address] [place] [address] Care Team Providers Care Documentation Lead Name Role Phone ADRIANNA LOPEZ Primary Care Physician Unavailab WENDY High Attending Clinician Unava ilDARIEN Martinez Attending Clinician Unavailable PEG CAMP Attending Clinician Unavailable Peg Camp NP Attending Clinician [phone] DEMETRIA DAVENPORT Attending Clinician Unav Demetria Howard MD Attending Clinician + Christina Victoria Attending Clinician [phone] JAC NAVARRO Attending Clinician Unavailable Jac Navarro MD Attending Clinician [phone] TYLER ROWE Attending Clinician Unavailab MELINDA Boothe Attending Clinician Unavailable Melinda Maciel DO Attending Clinician [phone] CHRISTY HOLLIDAY Attending Clinician Unavailable Christy Holliday MD Attending Clinician MARIA ELENA CHAN MEDICAL Attending George akins Unavailable DENISE SUNG Attending Clinician Unavailable KARLEY ADAMS Attending Clinician Unavailable JAC NAVARRO Admitting Clinician Unavailable MELINDA MACIEL Admitting Clinician Unavailable CHRISTY HOLLIDAY Admitting Clinician Unavailable Payers Payer Name Policy Type Policy Number Effective Date Expirati on Date Source [facility] VINOD LEE COPAY FOCUS 9 [id number] 2024 00:00:00 [facility] [id number] 2023 00:00:00 2024 00:00:00 [employer] [id number] 2023 00:00:00 [employer] 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 94 ON 9 [id number] 2023 00:00:00 Problems Condition Name Condition Details Condition Category Status Onset Date Resolution Date Last Treatment Date Treating Clinician Comments Source Acute exacerbati on of chronic obstructiv e pulmonary disease (COPD) Acute exacerbati on of chronic obstructiv e pulmonary disease (COPD) Disease Active 03-24 00:00: 00 [facility] Obesity (BMI 30-39.9) Obesity (BMI 30-39.9) Disease Active 03-24 00:00: 00 [facility] Allergies, Adverse Reactions, Alerts Allergy Name Allergy Type Status Severity Reaction(s) Onset Date Inactive Date Treating Clinician Comments Source Lisinopr il Propensi ty to adverse reaction s Active Anaphylaxis 03-24 00:00: 00 [facility] LISINOPR IL DRUG INGREDI Active Anaphylaxis 03-24 00:00: 00 [facility] Social History Social Habit Start Date Stop Date Quantity Comments Source History of tobacco use Smokes tobacco daily [facility] function 2024-02-08 00:00:00 2024-02-08 00:00:00 [facility] Alcohol intake 2024-02-08 00:00:00 2024-02-08 00:00:00 4.29 /d [facility] Exposure to SARS-CoV-2 (event) 2022-10-04 00:00:00 2022-10-14 10:25:00 Not sure [facility] Tobacco use and exposure 2018-03-24 00:00:00 2018-03-24 00:00:00 User of smokeless tobacco [facility] Tobacco Comment 2018-03-24 00:00:00 2018-03-24 00:00:00 trying to quit [facility] Sex Assigned At 1970 00:00:00 1970 00:00:00 [facility] Smoking Status Start Date Stop Date Source Smokes tobacco daily 2018-03-24 00:00:00 [facility] Medications Ordered Medication Name Filled Medication Name Start Date Stop Date Current Medication? Ordering Clinician Indication Dosage Frequency Signature (SIG) Comments Components Source ketorolac (TORADOL) injection 30 mg 02-17 03:15: 00 02-17 15:14 :00 Yes 30mg 30 mg, Slow IV Push, ONCE, 1 dose, On Thu02/17/24 at 2215, Routine [facility] methylpredn isolone sod succ (SOLU-MEDRO L) injection 125 mg 02-17 03:00: 00 02-17 14:59 :00 Yes 125mg 125 mg, Intravenou s, ONCE, 1 dose, On Thu02/17/24 at 2200, 2 mL [facility] ipratropium -albuteroL (DUONEB) 0.5 mg-3 mg(2.5 mg base)/3 mL nebulizer solution 6 mL 02-17 03:00: 00 02-17 14:59 :00 Yes 6mL 6 mL, Inhalation , ONCE NOW, 1 dose, On Thu02/17/24 at 2200, Routine [facility] NaCl 0.9% (NS) bolus infusion 1,000 mL 02-17 03:00: 00 02-17 14:59 :00 Yes 1000mL at 999 mL/hr, 1,000 mL, IV Infusion, ONCE, 1 dose, On Thu02/17/24 at 2200, LAURYN [facility] triamterene -hydrochlor othiazide 37.5-25 mg per capsule 02-16 20:52: 37 02-16 00:00 :00 No 1{capsu le} Take 1 capsule by mouth every morning. [facility] albuterol 5 mg/mL nebulizer solution 02-16 20:51: 42 02-16 00:00 :00 No 2.5mg Inhale 2.5 mg every 6 (six) hours as needed for Wheezing or Shortness of Breath. [facility] ketorolac (TORADOL) injection 15 mg 02-08 03:00: 00 02-08 02:21 :00 No 15mg 15 mg, Slow IV Push, ONCE, 1 dose, On Thu02/08/24 at 2200, Routine [facility] iopamidol (ISOVUE 370-500 mL) injection 100 mL 02-07 22:30: 00 02-07 22:30 :00 Yes [id number] 100mL 100 mL, Intravenou s, ONCE, 1 dose, On Thu02/08/24 at 1730, Routine [facility] ipratropium -albuteroL (DUONEB) 0.5 mg-3 mg(2.5 mg base)/3 mL nebulizer solution 3 mL 02-07 21:15: 00 02-07 20:45 :00 No 3mL 3 mL, Inhalation , ONCE, 1 dose, On Thu02/08/24 at 1615, Routine [facility] morpHINE (2 mg/mL) injection 4 mg 02-07 21:15: 00 02-07 20:27 :00 No 4mg 4 mg, Slow IV Push, ONCE, 1 dose, On Thu02/08/24 at 1615, STAT [facility] ondansetron (ZOFRAN (PF)) injection 4 mg 02-07 21:15: 00 02-07 20:22 :00 No 4mg 4 mg, Slow IV Push, ONCE, 1 dose, [facility]08[facility]24 [facility] gram/50 mL (4 %) infusion 2 g 02-07 21:00: 00 02-07 21:30 :00 No 2g 2 g, IV Piggyback, Administer over 60 Minutes, ONCE, 1 dose, On Thu02/08/24 at 1600, Routine [facility] ipratropium -albuteroL (DUONEB) 0.5 mg-3 mg(2.5 mg base)/3 mL nebulizer solution 3 mL 02-07 20:30: 00 02-07 19:31 :00 No 3mL 3 mL, Inhalation , ONCE, 1 dose, On Thu02/08/24 at 1530, Routine [facility] HYDROcodone -acetaminop hen (NORCO) 10-325 mg tablet 1 tablet 01-13 13:15: 00 01-13 12:15 :00 No 1{tbl} 1 tablet, Oral, ONCE, 1 dose, On Thu01/14/24 at 0715, [facility] ipratropium -albuteroL (DUONEB) 0.5 mg-3 mg(2.5 mg base)/3 mL nebulizer solution 3 mL 01-13 13:00: 00 01-13 11:53 :00 No 3mL 3 mL, Inhalation , ONCE NOW, 1 dose, On Thu01/14/24 at 0700, [facility] ondansetron (ZOFRAN (PF)) injection 4 mg 01-13 11:30: 00 01-13 11:37 :00 No 4mg 4 mg, Slow IV Push, ONCE, 1 dose, On Thu01/14/24 at 0530, [facility] morpHINE (4 mg/mL) injection 4 mg 01-13 11:30: 00 01-13 11:37 :00 No 4mg 4 mg, Slow IV Push, ONCE, 1 dose, On Thu01/14/24 at 0530, STAT [facility] azithromyci n (ZITHROMAX Z-PORTER) 250 mg tablet 01-13 00:00: 00 02-16 00:00 :00 No [id number] Take 500 mg on day 1 then 250 mg on days 2-5 [facility] predniSONE 20 mg tablet 01-13 00:00: 00 02-16 00:00 :00 No [id number] Take 1 po tid x 2 days, then take 1 po bid x 3 days, then take 1 po daily x 3 days. [facility] acetaminoph en-codeine 300-30 mg tablet 01-13 00:00: 00 01-21 04:59 :00 Yes [id number] 1{tbl} Take 1 tablet by mouth every 6 (six) hours as needed for Pain (scale 7-10) (severe cough) for up to 7 days. Indication s: acute pain, severe cough [facility] clonazePAM 1 mg tablet 12-26 00:00: 00 02-16 00:00 :00 No 1mg Take 1 tablet by mouth at bedtime as needed for Other (anxiety). [facility] KCL (KLOR-CON M20) tablet 40 mEq 12-23 05:00: 00 12-23 05:07 :00 No 40meq 40 mEq, Oral, ONCE, 1 dose, On Thu12/22/23 at 2300, [facility] NaCl 0.9% (NS) bolus infusion 1,000 mL 12-23 05:00: 00 12-23 05:09 :00 No 1000mL at 999 mL/hr, 1,000 mL, IV Infusion, ONCE, 1 dose, On Thu12/22/23 at 2300, [facility] ondansetron (ZOFRAN (PF)) injection 4 mg 12-23 04:30: 00 12-23 04:24 :00 No 4mg 4 mg, Slow IV Push, ONCE, 1 dose, On Thu12/22/23 at 2230, [facility] maalox:diph enhydrAMINE :lidocaine 2 % viscous 1:1:1 (FIRST-MOUT HWASH BLM) oral suspension 15 mL 12-23 04:15: 00 12-23 04:17 :00 No 15mL 15 mL, Oral, ONCE, 1 dose, On Thu12/22/23 at 2215, Routine [facility] famotidine (PEPCID (PF)) injection 20 mg 12-23 04:15: 00 12-23 04:15 :00 No 20mg 20 mg, Slow IV Push, ONCE, 1 dose, On Thu12/22/23 at 2215, LAURYN [facility] HYDROcodone -acetaminop hen (NORCO) 10-325 mg tablet 1 tablet 12-22 04:30: 00 12-22 16:29 :00 No 1{tbl} 1 tablet, Oral, ONCE, 1 dose, On Thu12/21/23 at 2230, Routine [facility] pantoprazol e (PROTONIX) 80 mg in NaCl 0.9% (NS) 20 mL syringe 12-22 04:15: 00 12-22 16:14 :00 No 80mg 80 mg, IV Push, ONCE, 1 dose, On Thu12/21/23 at 2215, Administer over 2 Minutes, 20 mL [facility] iopamidol (ISOVUE 370-500 mL) injection 100 mL 12-22 03:30: 00 12-22 03:30 :00 No [id number] 100mL 100 mL, Intravenou s, ONCE, 1 dose, On Thu12/21/23 at 2130, Routine [facility] morpHINE (4 mg/mL) injection 4 mg 12-22 03:30: 00 12-22 02:16 :00 No 4mg 4 mg, Slow IV Push, ONCE, 1 dose, On Thu12/21/23 at 2130, Routine [facility] ondansetron (ZOFRAN (PF)) injection 4 mg 12-22 02:45: 00 12-22 02:02 :00 No 4mg 4 mg, Slow IV Push, ONCE, 1 dose, On Thu12/21/23 at 2045, Routine [facility] hydrocortis one 25 mg suppository 12-22 00:00: 00 Yes [id number] 25mg Insert 1 Suppositor y into rectum 2 (two) times daily as needed for Rectal itching/pa in. [facility] ondansetron 4 mg disintegrat ing tablet 12-22 00:00: 00 02-16 00:00 :00 No [id number] 4mg Take 1 tablet by mouth every 8 (eight) hours as needed for Nausea and Vomiting (N/V). [facility] amoxicillin -clavulanat e 875-125 mg per tablet 12-22 00:00: 00 01-02 05:59 :00 No [id number] 1{tbl} Take 1 tablet by mouth every 12 (twelve) hours for 10 days. [facility] methylpredn isolone sod succ (SOLU-MEDRO L) injection 125 mg 2022-11 08:45: 00 10-27 20:44 :00 No 125mg 125 mg, Slow IV Push, ONCE, 1 dose, On Thu10/27/23 at 0245, STAT [facility] ipratropium -albuteroL (DUONEB) 0.5 mg-3 mg(2.5 mg base)/3 mL nebulizer solution 3 mL 2022-11 08:45: 00 10-27 20:44 :00 No 3mL 3 mL, Inhalation , ONCE NOW, 1 dose, On Thu10/27/23 at 0245, LAURYN [facility] diazePAM (VALIUM) tablet 10 mg 2022-11 07:45: 00 10-27 19:44 :00 No 10mg 10 mg, Oral, ONCE, 1 dose, On Thu10/27/23 at 0145, LAURYN [facility] levoFLOXaci n (LEVAQUIN) tablet 500 mg 2022-11 07:45: 00 10-27 19:44 :00 No 500mg 500 mg, Oral, ONCE, 1 dose, On Thu10/27/23 at 0145, LAURYN
Re ason for Anti-Infec tive: Empiric Non-Surgic al Prophylaxi s
Durat ion of therapy: Once (ED) [facility] iopamidol (ISOVUE 370-500 mL) injection 70 mL 2021-11 18:30: 00 10-14 18:30 :00 No [id number] 70mL 70 mL, Intravenou s, ONCE, 1 dose, On Thu10/14/22 at 1230, Routine [facility] methylpredn isolone sod succ (SOLU-MEDRO L) injection 125 mg 2021-11 18:00: 00 Yes 125mg 125 mg, Intravenou s, Q6H, First dose on Thu10/14/22 at 1200, Until Discontinu ed, Routine [facility] furosemide (LASIX) injection 40 mg 2021-11 17:45: 00 10-14 16:39 :00 No 40mg 40 mg, IV Push, ONCE, 1 dose, On Thu10/14/22 at 1145, LAURYN [facility] ipratropium -albuteroL (DUONEB) 0.5 mg-3 mg(2.5 mg base)/3 mL nebulizer solution 3 mL 2021-11 17:30: 00 10-14 16:41 :00 No 3mL 3 mL, Inhalation , ONCE, 1 dose, On Thu10/14/22 at 1130, Routine [facility] FENTanyl PF (SUBLIMAZE (PF)) injection 50 mcg 2021-11 16:45: 00 10-14 16:39 :00 No 50ug 50 mcg, Slow IV Push, ONCE, 1 dose, On Thu10/14/22 at 1045, Routine [facility] levoFLOXaci n 750 mg tablet 2021-11 00:00: 00 02-16 00:00 :00 No [id number] 750mg Take 1 tablet by mouth every 24 (twenty-fo ur) hours. [facility] HYDROcodone -acetaminop hen (NORCO) 10-325 mg tablet 1 tablet 03-12 12:15: 00 03-12 11:21 :00 No 1{tbl} 1 tablet, Oral, ONCE, 1 dose, On Thu03/12/22 at 0715, Routine [facility] HYDROcodone -acetaminop hen 10-325 mg tablet 03-12 00:00: 00 03-20 04:59 :00 No [id number] 1{tbl} Take 1 tablet by mouth every 6 (six) hours as needed for Pain (scale 7-10) for up to 7 days. Indication s: acute pain [facility] ipratropium -albuteroL (DUONEB) 0.5 mg-3 mg(2.5 mg base)/3 mL nebulizer solution 3 mL 02-20 13:00: 00 Yes 3mL 3 mL, Inhalation , QID, First dose on Thu02/20/22 at 0800, Until Discontinu ed, Routine [facility] methylPREDN ISolone sod succ (SOLU-MEDRO L (PF)) injection 40 mg 02-20 11:45: 00 02-20 10:43 :00 No 40mg 40 mg, Intravenou s, ONCE, 1 dose, On Thu02/20/22 at 0645, STAT [facility] foLIC acid (FOLATE) tablet 1 mg 02-20 11:45: 00 02-20 10:41 :00 No 1mg 1 mg, Oral, ONCE, 1 dose, On Thu02/20/22 at 0645, LAURYN [facility] thiamine (VITAMIN B1) injection 100 mg 02-20 11:45: 00 02-20 10:43 :00 No 100mg 100 mg, Intravenou s, ONCE, 1 dose, On Thu02/20/22 at 0645, LAURYN [facility] LORazepam (ATIVAN) injection 2 mg 02-20 11:45: 00 02-20 10:42 :00 No 2mg 2 mg, Slow IV Push, ONCE, 1 dose, On Thu02/20/22 at 0645, STAT [facility] ipratropium -albuteroL (DUONEB) 0.5 mg-3 mg(2.5 mg base)/3 mL nebulizer solution 3 mL 02-20 10:30: 00 02-20 09:34 :00 No 3mL 3 mL, Inhalation , ONCE, 1 dose, On [facility] 02/20/22 at 0530, Routine [facility] albuterol 90 mcg/actuati on inhaler 02-20 00:00: 00 Yes [id number] 2{puff} Inhale 2 Puffs every 4 (four) hours as needed for Wheezing or Shortness of Breath. [facility] triamterene -hydrochlor othiazid 37.5-25 mg tablet 02-20 00:00: 00 Yes [id number] 1{tbl} Take 1 tablet by mouth daily. [facility] chlordiazeP OXIDE 25 mg capsule 02-20 00:00: 00 Yes [id number] 25mg Take 1 capsule by mouth every 6 (six) hours as needed for Anxiety, Agitation, Heart Rate => 100 or Detox. [facility] predniSONE 10 mg tablet 02-20 00:00: 00 02-16 00:00 :00 No [id number] TAKE ONE TABLET BY MOUTH DAILY [facility] albuterol 2.5 mg /3 mL (0.083 %) nebulizer solution 02-20 00:00: 00 02-16 00:00 :00 No [id number] 2.5mg Inhale 3 mL every 4 (four) hours. May also nebulize one extra every 6 hours. [facility] budesonide- formoteroL 160-4.5 mcg/actuati on inhaler 02-20 00:00: 00 02-16 00:00 :00 No [id number] 2{puff} Inhale 2 Puffs 2 (two) times daily. [facility] albuterol 5 mg/mL nebulizer solution 07-16 14:02: 20 Yes 2.5mg Inhale 2.5 mg every 6 (six) hours as needed for Wheezing or Shortness of Breath. [facility] budesonide- formoterol 160-4.5 mcg/actuati on inhaler 07-16 00:00: 00 Yes 2{puff} Inhale 2 Puffs 2 (two) times daily. [facility] albuterol 2.5 mg /3 mL (0.083 %) nebulizer solution 07-16 00:00: 00 Yes 2.5mg Inhale 3 mL every 4 (four) hours as needed for Wheezing or Shortness of Breath. [facility] triamterene -hydrochlor othiazide 37.5-25 mg per capsule 03-26 16:32: 14 Yes 1{capsu le} Take 1 capsule by mouth every morning. [facility] amLODIPine 10 mg tablet 03-26 16:32: 14 Yes 10mg Take 10 mg by mouth at bedtime. [facility] gabapentin 100 mg capsule 03-26 16:32: 14 Yes 100mg Take 100 mg by mouth 2 (two) times daily as needed ([facility] pain). [facility] foLIC acid 1 mg tablet 03-26 16:32: 14 Yes 1mg Take 1 mg by mouth daily. [facility] budesonide- formoterol 160-4.5 mcg/actuati on inhaler 03-26 00:00: 00 02-16 00:00 :00 No 2{puff} Inhale 2 Puffs 2 (two) times daily. [facility] Immunizations Ordered Immunization Name Filled Immunization Name Date Status Comments Source SARS-COV-2 COVID-19 PFIZER VACCINE 2021-02-03 00:00:00 Completed [facility] SARS-COV-2 COVID-19 PFIZER VACCINE 2021-02-03 00:00:00 Completed [facility] SARS-COV-2 COVID-19 PFIZER VACCINE 2021-02-03 00:00:00 Completed [facility] SARS-COV-2 COVID-19 PFIZER VACCINE 2021-01-13 00:00:00 Completed [facility] SARS-COV-2 COVID-19 PFIZER VACCINE 2021-01-13 00:00:00 Completed [facility] SARS-COV-2 COVID-19 PFIZER VACCINE 2021-01-13 00:00:00 Completed [facility] Pneumococcal Polysaccharide, PPSV23 (PNEUMOVAX) 2018-03-26 00:00:00 Completed [facility] Influenza Virus Vaccine Quad IM 3+ YRS 2018-03-26 00:00:00 Completed [facility] Pneumococcal Polysaccharide, PPSV23 (PNEUMOVAX) 2018-03-26 00:00:00 Completed [facility] Influenza Virus Vaccine Quad IM 3+ YRS 2018-03-26 00:00:00 Completed [facility] Pneumococcal Polysaccharide, PPSV23 (PNEUMOVAX) 2018-03-26 00:00:00 Completed [facility] Influenza Virus Vaccine Quad IM 3+ YRS 2018-03-26 00:00:00 Completed [facility] Pneumococcal Polysaccharide, PPSV23 (PNEUMOVAX) Unknown Completed [facility] Influenza Virus Vaccine Quad IM 3+ YRS Unknown Completed [facility] SARS-COV-2 COVID-19 PFIZER VACCINE Unknown Completed [facility] SARS-COV-2 COVID-19 PFIZER VACCINE Unknown Completed [facility] Pneumococcal Polysaccharide, PPSV23 (PNEUMOVAX) Unknown Completed [facility] Influenza Virus Vaccine Quad IM 3+ YRS Unknown Completed [facility] SARS-COV-2 COVID-19 PFIZER VACCINE Unknown Completed [facility] SARS-COV-2 COVID-19 PFIZER VACCINE Unknown Completed [facility] Pneumococcal Polysaccharide, PPSV23 (PNEUMOVAX) Unknown Completed [facility] Influenza Virus Vaccine Quad IM 3+ YRS Unknown Completed [facility] SARS-COV-2 COVID-19 PFIZER VACCINE Unknown Completed [facility] SARS-COV-2 COVID-19 PFIZER VACCINE Unknown Completed [facility] Pneumococcal Polysaccharide, PPSV23 (PNEUMOVAX) Unknown Completed [facility] Influenza Virus Vaccine Quad IM 3+ YRS Unknown Completed [facility] SARS-COV-2 COVID-19 PFIZER VACCINE Unknown Completed [facility] SARS-COV-2 COVID-19 PFIZER VACCINE Unknown Completed [facility] Pneumococcal Polysaccharide, PPSV23 (PNEUMOVAX) Unknown Completed [facility] Influenza Virus Vaccine Quad IM 3+ YRS Unknown Completed [facility] SARS-COV-2 COVID-19 PFIZER VACCINE Unknown Completed [facility] SARS-COV-2 COVID-19 PFIZER VACCINE Unknown Completed [facility] Pneumococcal Polysaccharide, PPSV23 (PNEUMOVAX) Unknown Completed [facility] Influenza Virus Vaccine Quad IM 3+ YRS Unknown Completed [facility] SARS-COV-2 COVID-19 PFIZER VACCINE Unknown Completed [facility] SARS-COV-2 COVID-19 PFIZER VACCINE Unknown Completed [facility] Pneumococcal Polysaccharide, PPSV23 (PNEUMOVAX) Unknown Completed [facility] Influenza Virus Vaccine Quad IM 3+ YRS Unknown Completed [facility] SARS-COV-2 COVID-19 PFIZER VACCINE Unknown Completed [facility] SARS-COV-2 COVID-19 PFIZER VACCINE Unknown Completed [facility] Pneumococcal Polysaccharide, PPSV23 (PNEUMOVAX) Unknown Completed [facility] Influenza Virus Vaccine Quad IM 3+ YRS Unknown Completed [facility] SARS-COV-2 COVID-19 PFIZER VACCINE Unknown Completed [facility] SARS-COV-2 COVID-19 PFIZER VACCINE Unknown Completed [facility] Vital Signs Vital Name Observation Time Observation Value Comments S ource Systolic blood pressure 2024-02-18 01:57:00 134 mm[Hg] [facility] Diastolic blood pressure 2024-02-18 01:57:00 94 mm[Hg] [facility] Body height 2024-02-18 01:57:[address] [facility] Body weight 2024-02-18 01:57:[address] [facility] BMI 2024-02-18 01:57:00 30.04 kg/m2 [facility] Heart rate 2024-02-18 01:53:00 110 /min [facility] Body temperature 2024-02-18 01:53:00 36.61 Debbie [facility] Respiratory rate 2024-02-18 01:53:00 24 /min [facility] Oxygen saturation in Arterial blood by Pulse oximetry 2024-02-18 01:53:00 93 /min [facility] Systolic blood pressure 2024-02-09 01:54:05 150 mm[Hg] [facility] Diastolic blood pressure 2024-02-09 01:54:05 91 mm[Hg] [facility] Heart rate 2024-02-09 01:54:05 87 /min [facility] Respiratory rate 2024-02-09 01:54:05 17 /min [facility] Oxygen saturation in Arterial blood by Pulse oximetry 2024-02-09 01:54:05 93 /min [facility] Body temperature 2024-02-09 01:45:00 36.67 Debbie [facility] Body height 2024-02-09 01:45:00 162.6 cm [facility] Body weight 2024-02-09 01:45:00 81.194 kg [facility] BMI 2024-02-09 01:45:00 30.73 kg/m2 [facility] Respiratory rate 2024-02-08 21:00:00 18 /min [facility] Oxygen saturation in Arterial blood by Pulse oximetry 2024-02-08 21:00:00 96 /min [facility] Systolic blood pressure 2024-02-08 20:27:00 164 mm[Hg] [facility] Diastolic blood pressure 2024-02-08 20:27:00 90 mm[Hg] [facility] Heart rate 2024-02-08 20:27:00 83 /min [facility] Body temperature 2024-02-08 19:12:00 36.83 Debbie [facility] Body height 2024-02-08 19:12:00 162.6 cm [facility] Body weight 2024-02-08 19:12:[address] [facility] BMI 2024-02-08 19:12:00 30.73 kg/m2 [facility] Heart rate 2024-01-14 12:15:00 98 /min [facility] Body temperature 2024-01-14 12:15:00 36.56 Debbie [facility] Respiratory rate 2024-01-14 12:15:00 14 /min [facility] Oxygen saturation in Arterial blood by Pulse oximetry 2024-01-14 12:15:00 95 /min [facility] Systolic blood pressure 2024-01-14 12:00:00 140 mm[Hg] [facility] Diastolic blood pressure 2024-01-14 12:00:00 90 mm[Hg] [facility] Body height 2024-01-14 10:51:[address] [facility] Body weight 2024-01-14 10:51:[address] [facility] BMI 2024-01-14 10:51:00 30.73 kg/m2 [facility] Systolic blood pressure 2023-12-23 05:02:00 133 mm[Hg] [facility] Diastolic blood pressure 2023-12-23 05:02:00 84 mm[Hg] [facility] Heart rate 2023-12-23 05:02:00 78 /min [facility] Body temperature 2023-12-23 05:02:00 36.17 Debbie [facility] Respiratory rate 2023-12-23 05:02:00 17 /min [facility] Oxygen saturation in Arterial blood by Pulse oximetry 2023-12-23 05:02:00 91 /min [facility] Body height 2023-12-23 03:45:[address] [facility] Body weight 2023-12-23 03:45:[address] [facility] BMI 2023-12-23 03:45:00 30.73 kg/m2 [facility] Systolic blood pressure 2023-12-22 02:08:00 143 mm[Hg] [facility] Diastolic blood pressure 2023-12-22 02:08:00 92 mm[Hg] [facility] Heart rate 2023-12-22 02:08:00 81 /min [facility] Respiratory rate 2023-12-22 02:08:00 13 /min [facility] Oxygen saturation in Arterial blood by Pulse oximetry 2023-12-22 02:08:00 95 /min [facility] Body temperature 2023-12-22 01:33:00 36.72 Debbie [facility] Body height 2023-12-22 01:33:00 162.6 cm [facility] Body weight 2023-12-22 01:33:00 81.239 kg [facility] BMI 2023-12-22 01:33:00 30.74 kg/m2 [facility] Systolic blood pressure 2023-11-11 02:00:00 127 mm[Hg] [facility] Diastolic blood pressure 2023-11-11 02:00:00 87 mm[Hg] [facility] Heart rate 2023-11-11 02:00:00 79 /min [facility] Respiratory rate 2023-11-11 02:00:00 20 /min [facility] Oxygen saturation in Arterial blood by Pulse oximetry 2023-11-11 02:00:00 98 /min [facility] Body temperature 2023-11-11 01:31:00 36.28 Debbie [facility] Body height 2023-11-11 01:31:[address] [facility] Body weight 2023-11-11 01:31:[address] [facility] BMI 2023-11-11 01:31:00 30.04 kg/m2 [facility] Systolic blood pressure 2023-10-27 06:54:00 133 mm[Hg] [facility] Diastolic blood pressure 2023-10-27 06:54:00 94 mm[Hg] [facility] Heart rate 2023-10-27 06:54:00 95 /min [facility] Body temperature 2023-10-27 06:54:00 36.44 Debbie [facility] Respiratory rate 2023-10-27 06:54:00 22 /min [facility] Body height 2023-10-27 06:54:00 162.6 cm [facility] Body weight 2023-10-27 06:54:00 78.472 kg [facility] BMI 2023-10-27 06:54:00 29.70 kg/m2 [facility] Oxygen saturation in Arterial blood by Pulse oximetry 2023-10-27 06:54:00 94 /min [facility] Systolic blood pressure 2022-10-14 19:43:00 111 mm[Hg] [facility] Diastolic blood pressure 2022-10-14 19:43:00 74 mm[Hg] [facility] Heart rate 2022-10-14 19:43:00 98 /min [facility] Body temperature 2022-10-14 19:43:00 36.39 Debbie [facility] Respiratory rate 2022-10-14 19:43:00 22 /min [facility] Oxygen saturation in Arterial blood by Pulse oximetry 2022-10-14 19:43:00 94 /min [facility] Body height 2022-10-14 16:13:[address] [facility] Body weight 2022-10-14 16:13:[address] [facility] BMI 2022-10-14 16:13:00 30.90 kg/m2 [facility] Systolic blood pressure 2022-03-12 10:13:00 119 mm[Hg] [facility] Diastolic blood pressure 2022-03-12 10:13:00 75 mm[Hg] [facility] Heart rate 2022-03-12 10:13:00 105 /min [facility] Body temperature 2022-03-12 10:13:00 37.28 Debbie [facility] Respiratory rate 2022-03-12 10:13:00 19 /min [facility] Body height 2022-03-12 10:13:[address] [facility] Body weight 2022-03-12 10:13:[address] [facility] BMI 2022-03-12 10:13:00 37.76 kg/m2 [facility] Oxygen saturation in Arterial blood by Pulse oximetry 2022-03-12 10:13:00 96 /min [facility] Systolic blood pressure 2022-02-20 11:57:00 155 mm[Hg] [facility] Diastolic blood pressure 2022-02-20 11:57:00 88 mm[Hg] [facility] Heart rate 2022-02-20 11:57:00 105 /min [facility] Respiratory rate 2022-02-20 11:57:00 18 /min [facility] Oxygen saturation in Arterial blood by Pulse oximetry 2022-02-20 11:57:00 100 /min [facility] Body temperature 2022-02-20 09:25:00 37 Debbie [facility] Body height 2022-02-20 09:25:[address] [facility] Body weight 2022-02-20 09:25:[address] [facility] BMI 2022-02-20 09:25:00 36.39 kg/m2 [facility] Procedures Procedure Date / Time Performed Performing Clinician Source AC PANEL 20 + LACTIC ACID 2024-02-08 20:47:00 Christina Villarreal [facility] XR CHEST 1 VW 2024-02-08 19:47:[address] [facility] URINALYSIS 2024-02-08 19:36:00 Christina [facility]real [facility] MAGNESIUM 2024-02-08 19:25:00 Christina Villarreal [facility] [place] TROPONIN I 2024-02-08 19:25:00 Christina Villarreal [facility] [place] COMP. METABOLIC PANEL ([id number]) 2024-02-08 19:25:00 Christina Villarreal [facility] ETHANOL 2024-02-08 19:25:00 Christina Villarreal [facility] [place] CBC WITH DIFF 2024-02-08 19:25:[address] [facility] N-TERMINAL PRO-BNP 2024-02-08 19:25:00 Christina Villarreal [facility] EKG-12 LEAD 2024-01-14 12:00:51 Jac Navarro [facility] LIPASE 2024-01-14 11:11:00 Jac Navarro [facility] TROPONIN I 2024-01-14 11:11:00 Jac Navarro [facility] COMP. METABOLIC PANEL ([id number]) 2024-01-14 11:11:00 Jac Navarro [facility] ETHANOL 2024-01-14 11:11:00 Jac Navarro [facility] CBC WITH DIFF 2024-01-14 11:11:00 Jac Navarro [facility] [place] [place] N-TERMINAL PRO-BNP 2024-01-14 11:11:00 Jac Navarro [facility] COVID-19 (ID NOW RAPID TESTING) 2024-01-14 11:11:00 Jac Navarro [facility] CONSENT/REFUSAL FOR DIAGNOSIS AND TREATMENT 2024-01-14 10:44:32 Doctor Unassigned, Charlack [facility] LIPASE 2023-12-23 04:17:00 [facility] COMP. METABOLIC PANEL ([id number]) 2023-12-23 04:17:00 Tyler Rowe [facility] CBC WITH DIFF 2023-12-23 04:17:00 Tyler Rowe [facility] URINALYSIS 2023-12-23 04:17:00 [facility] CONSENT/REFUSAL FOR DIAGNOSIS AND TREATMENT 2023-12-23 03:40:32 Doctor Unassigned, Charlack [facility] CT ABDOMEN PELVIS W CONTRAST 2023-12-22 02:31:05 Melinda Maciel [facility] LIPASE 2023-12-22 01:58:00 Melinda Maciel [facility] COMP. METABOLIC PANEL ([id number]) 2023-12-22 01:58:00 Melinda Maciel [facility] ETHANOL 2023-12-22 01:58:00 Melinda Maciel [facility] CBC WITH DIFF 2023-12-22 01:58:00 Maciel, Melinda [facility] PROTHROMBIN TIME / INR 2023-12-22 01:58[facility] 2023-12-22 01:58:00 Melinda Maciel [facility] CONSENT/REFUSAL FOR DIAGNOSIS AND TREATMENT 2023-12-22 01:19:14 Doctor Unassigned, Charlack [facility] NOTICE OF PRIVACY PRACTICES 2023-11-11 01:24:24 Doctor Unassigned, Charlack [facility] CONSENT/REFUSAL FOR DIAGNOSIS AND TREATMENT 2023-11-11 01:23:54 Doctor Unassigned, Charlack [facility] COVID-19 (ID NOW RAPID TESTING) 2023-10-27 07:09:00 Jac Navarro [facility] NOTICE OF PRIVACY PRACTICES 2023-10-27 06:49:48 Doctor Unassigned, Charlack [facility] CONSENT/REFUSAL FOR DIAGNOSIS AND TREATMENT 2023-10-27 06:47:40 Doctor Unassigned, Charlack [facility] CT ABDOMEN PELVIS W CONTRAST 2022-10-14 17:33:00 Melinda Maciel [facility] XR CHEST 1 VW 2022-10-14 17:10:37 Singer [facility] TROPONIN I 2022-10-14 16:37:00 Melinda Maciel [facility] [place] [place] COMP. METABOLIC PANEL ([id number]) 2022-10-14 16:37:00 [facility]FF 2022-10-14 16:37:[address] [facility] PROTHROMBIN TIME / INR 2022-10-14 16:37:00 Wali Maciel [facility] URINALYSIS 2022-10-14 16:37:00 Melinda Maciel [facility] [place] [place] N-TERMINAL PRO-BNP 2022-10-14 16:37:00 Singer [facility] CONSENT/REFUSAL FOR DIAGNOSIS AND TREATMENT 2022-10-14 15:56:36 Doctor Unassigned, Charlack [facility] CONSENT/REFUSAL FOR DIAGNOSIS AND TREATMENT 2022-03-12 10:03:12 Doctor Unassigned, Charlack [facility] XR CHEST 1 VW 2022-02-20 09:59:00 Christy Holliday [facility] LIPASE 2022-02-20 09:30:[address] [facility] TROPONIN I 2022-02-20 09:30:[address] [facility] COMP. METABOLIC PANEL ([id number]) 2022-02-20 09:30:00 Christy Holliday [facility] CBC WITH DIFF 2022-02-20 09:30:00 Christy Holliday [facility] N-TERMINAL PRO-BNP 2022-02-20 09:30:00 Christy Holliday [facility] NOTICE OF PRIVACY PRACTICES 2022-02-20 09:15:02 Doctor Unassigned, Charlack [facility] CONSENT/REFUSAL FOR DIAGNOSIS AND TREATMENT 2022-02-20 09:14:47 Doctor Unassigned, Charlack [facility] Encounters Start Date/Time End Date/Time Encounter Type Admission Type Attending [facility] Care Department Encounter ID Source 2024-04-12 11:00:00 2024-04-12 11:00:00 Outpatient WENDY BROWNLEE [id number] [facility] 11:30:00 2024-04-05 11:30:00 Outpatient DARIEN LOBO [id number] [facility] 2024-04-05 00:00:00 2024-04-05 00:00:00 Outpatient DARIEN LOBO [id number] Maria Elena Alcantara 2024-03-28 00:00:00 2024-03-28 00:00:00 Outpatient DARIEN LOBO [id number] [facility] 2024-03-15 08:30:00 2024-03-15 08:30:00 Outpatient WENDY BROWNLEE [id number] [facility] 2024-02-17 20:58:00 2024-02-17 21:44:00 Emergency X PEG [facility] ERT [id number] [facility] 2024-02-17 20:58:00 2024-02-17 21:44:00 Emergency Peg Camp [facility] 1.2.840.114 350.1.13.10 4.2.7.2.686 [id number] [facility] 2024-02-08 20:38:00 2024-02-08 21:40:00 Emergency X DEMETRIA DAVENPORT [facility] ERT [id number] [facility] 2024-02-08 20:38:00 2024-02-08 21:40:00 Emergency Demetria Davenport [facility] 1.2.840.114 350.1.13.10 4.2.7.2.686 [id number] [facility] 2024-02-08 14:08:00 2024-02-08 17:06:00 Emergency Christina Villarreal [facility] 1.2.840.114 350.1.13.10 4.2.7.2.686 [id number] [facility] 2024-01-14 04:46:00 2024-01-14 06:23:00 Emergency X MELANIE JAC [facility] ERT [id number] [facility] 2024-01-14 04:46:00 2024-01-14 06:23:00 Emergency Melanie Jac Flo [facility] 1.2.840.114 350.1.13.10 4.2.7.2.686 [id number] [facility] 2023-12-22 21:51:00 2023-12-22 23:13:00 Emergency X TYLER ROWE [facility] ERT [id number] [facility] 2023-12-22 21:51:00 2023-12-22 23:13:00 Emergency Tyler Rowe [facility] 1.2.840.114 350.1.13.10 4.2.7.2.686 [id number] [facility] 2023-12-21 19:36:00 2023-12-21 21:52:00 Emergency X MELINDA MACIEL [facility] ERT [id number] [facility] 2023-12-21 19:36:00 2023-12-21 21:52:00 Emergency Melinda Maciel [facility] 1.2.840.114 350.1.13.10 4.2.7.2.686 [id number] [facility] 2023-11-10 19:29:00 2023-11-10 20:14:00 Emergency X CHRISTY HOLLIDAY [facility] ERT [id number] [facility] 2023-11-10 19:29:00 2023-11-10 20:14:00 Emergency Christy Holliday [facility] 1.2.840.114 350.1.13.10 4.2.7.2.686 [id number] [id number] [facility] 2023-10-27 00:49:00 2023-10-27 01:41:00 Emergency X JAC NAVARRO [facility] ERT [id number] [facility] 2023-10-27 00:49:00 2023-10-27 01:41:00 Emergency Jac Navarro [facility] 1.2.840.114 350.1.13.10 4.2.7.2.686 [id number] [facility] 2023-07-15 00:00:00 2023-07-15 00:00:00 Outpatient DARIEN LOBO [id number] Maria Elena Alcantara 2023-06-16 11:30:00 2023-06-16 11:30:00 Outpatient DARIEN LOBO [id number] Maria Elena Alcantara 2023-05-18 00:00:00 2023-05-18 00:00:00 Outpatient GROUP, MARIA ELENA BECERRA [id number] Maria Elena Alcantara 2022-10-14 10:07:00 2022-10-14 14:39:00 Emergency MELINDA ROUSE [facility] ERT [id number] [facility] 2022-10-14 10:07:00 2022-10-14 14:39:00 Emergency Melinda Maciel [facility] 1.2.840.114 350.1.13.10 4.2.7.2.686 [id number] [facility] 2022-03-12 05:15:00 2022-03-12 06:41:00 Emergency X CHRISTY HOLLIDAY [facility] ERT [id number] [facility] 2022-03-12 05:15:00 2022-03-12 06:41:00 Emergency Christy Holliday [facility] 1.2.840.114 350.1.13.10 4.2.7.2.686 [id number] [facility] 2022-02-20 04:17:00 2022-02-20 07:16:00 Emergency CHRISTY OZUNA [facility] ERT [id number] [facility] 2022-02-20 04:17:00 2022-02-20 07:16:00 Emergency Christy Holliday [facility] 1.2.840.114 350.1.13.10 4.2.7.2.686 [id number] [facility] 2021-02-03 11:10:00 2021-02-03 11:10:00 Outpatient DENISE CAMPO [facility] [id number] [facility] 2021-01-13 11:20:00 2021-01-13 11:20:00 Outpatient [facility] [id number] [facility] 2020-11-10 08:20:00 2020-11-10 08:20:00 Outpatient KARLEY ESTRADA [facility] [id number] [facility] Results Test Description Test Time Test Comments Results Result Co mments Source [facility] + Lactic [id number] 20:52:47* Test Item Value Reference Range Interpretation Comme nts PH (test code = 2) 7.39 7.35-7.45 PCO2 (test code = 8669921120) 42 35-45 PO2 (test code = 0586060056) 76 80-100 L HCO3 (test code = 1070555491) 25 22-26 BE (test code = 7107709201) -0.1 -3.0-3.0 THB (test code = 0670697742) 14.3 g/dL 13.5-18.0 %O2HB (test code = 7346334597) 85.8 % 94.0-99.0 L %COHB ART (test code = 4868834991) 9.0 % 0.0-1.5 H %METHB ART (test code = 2462266645) 0.3 % 0.4-1.5 L VOL%O2 ART (test code = 0035168641) 17.3 % 15.0-23.0 NA (test code = 0709877423) 140 mmol/L 135-145 K+ (test code = 5456413617) 4.1 mmol/L 3.5-5.0 AC CA IONZ (test code = 8288204681) 4.50 mg/dL 4.50-5.30 GLUCOSE (test code = 8872068373) 105 mg/dL 70-110 LACTIC ACID (test code = 8337156364) 2.60 mmol/L 0.50-2.20 H Lab Interpretation (test cod e = 38262-3) Abnormal [facility] Hospital[facility]roponin [id number] 20:34:14* Test Item Value Reference Range Interpretation Comme nts TROPONIN I (test code = 2814619365) 0.008 ng/mL <=0.034 LOUISE (test code = [...] of biotin. Lab Interpretation (test code = 92856-4) Normal [facility]Terminal Oup-[id number] 20:31:35* Test Item Value Reference Range Interpretation Comme nts NT-proBNP (test code = 12945-1) 188 pg/mL <=125 LOUISE (test code = LOUISE) Result Indeterminate-Consid er causes of NT-proBNP elevation other than Heart failure such as acute coronary syndrome, pulmonary embolism, pulmonary hypertension, sepsis, stroke, and renal dysfunction. Lab Interpretation (test code = 56045-1) Abnormal [facility] Hospital[facility] Metabolic Panel (33405)2024-02-08 20:21:10* Test Item Value Reference Range Interpretation Comme nts NA (test code = 9215221689) 135 mmol/L 135-145 K (test code = 6229957729) 4.5 mmol/L 3.5-5.0 CL (test code = 0272693405) 100 mmol/L 98-108 CO2 TOTAL (test code = 1707059309) 22 mmol/L 23-31 L AGAP (test code = 9404209339) 13 2-16 BUN (test code = 8898662085) 8 mg/dL 7-23 GLUCOSE (test code = 5467923022) 97 mg/dL 70-110 CREATININE (test code = 2160-0) 0.65 mg/dL 0.60-1.25 TOTAL BILI (test code = 5311612511) 0.4 mg/dL 0.1-1.1 CALCIUM (test code = 1874988571) 9.4 mg/dL 8.6-10.6 T PROTEIN (test code = 8223401163) 8.2 g/dL 6.3-8.2 ALBUMIN (test code = 1692659502) 4.7 g/dL 3.5-5.0 ALK PHOS (test code = 4818298533) 76 U/L 34-122 ALTv (test code = 1742-6) 33 U/L 5-50 AST(SGOT) (test code = 6589404566) 54 U/L 13-40 H eGFR (test code = 69431-3) 111.3 mL/min/1.73m2 CKD-EPI eGFR (2020). Assuming creatinine has been stable day-to-day for at least three months, the eGFR indicates Category G1 (>= 90 mL/min/1.73 m2) Lab Interpretation (test code = 90609-0) Abnormal [facility] HospitalMagnesium2024-04-01 20:21:10* Test Item Value Reference Range Interpretation Comme nts MAGNESIUM (test code = 6664264230) 2.1 mg/dL 1.7-2.4 Lab Interpretation (test cod e = 41287-2) Normal [facility]XR CHEST 1 [id number] 20:07:21EXAM: XR CHEST 1 VW COMPARISON: 01/14/2024 HISTORY: sob FINDINGS: Lungs: Slightly hyperexpanded lungswith subtle progression of interstitialprominence. Trace pleural effusions could be present. Heart/Mediastinum: Stable cardiomegaly. Bones and soft tissues: No osseous abnormality is visualized.[facility] Cbc with [id number] 20:04:26* Test Item Value Reference Range Interpretation [...] 33.8 g/dL 31.2-35.0 RDW-SD (test code = 42928-8) 50.5 fL 38.5-51.6 RDW-CV (test code = 788-0) 14.3 % 12.1-15.4 PLT (test code = 777-3) 206 150-328 MPV (test code = 31032-0) 9.1 fL 9.8-13.0 L NRBC/100 WBC (test code = 0733855538) 0.0 0.0-10.0 NRBC x10^3 (test code = 3059027320) See_Comment [Automated messa ge] The system which generated this result transmitted reference range: 10*3/?L. The reference range was not used to interpret this result as normal/abnormal. GRAN MAT (NEUT) % (test code = 770-8) 81.0 % IMM GRAN % (test code = 7357080758) 1.20 % LYMPH % (test code = 736-9) 10.9 % MONO % (test code = 5905-5) 6.8 % EOS % (test code = 713-8) 0.0 % BASO % (test code = 706-2) 0.1 % GRAN MAT x10^3(ANC) (test code = 3549965037) 9.31 10*3/uL 1.99-6.95 H IMM GRAN x10^3 (test code = 5732175835) 0.14 10*3/uL 0.00-0.06 H LYMPH x10^3 (test code = 731-0) 1.25 10*3/uL 1.09-3.23 MONO x10^3 (test code = 742-7) 0.78 10*3/uL 0.36-1.02 EOS x10^3 (test code = 711-2) 0.06-0.53 L BASO x10^3 (test code = 704-7) 0.01-0.09 Lab Interpretation (test code = 34558-6) [facility] (44187[facility]2023-12-23 04:53:26* Test Item Value Reference Range Interpretation Comme nts NA (test code = 0553138849) 135 mmol/L 135-145 K (test code = 8003229679) 3.2 mmol/L 3.5-5.0 L CL (test code = 9313077260) 104 mmol/L 98-108 CO2 TOTAL (test code = 0180339446) 23 mmol/L 23-31 AGAP (test code = 7767076046) 8 2-16 BUN (test code = 1561228706) 11 mg/dL 7-23 GLUCOSE (test code = 1687701255) 82 mg/dL 70-110 CREATININE (test code = 2160-0) 0.64 mg/dL 0.60-1.25 TOTAL BILI (test code = 5283127949) 0.5 mg/dL 0.1-1.1 CALCIUM (test code = 2049962497) 8.8 mg/dL 8.6-10.6 T PROTEIN (test code = 4263056384) 6.7 g/dL 6.3-8.2 ALBUMIN (test code = 7601898871) 4.1 g/dL 3.5-5.0 ALK PHOS (test code = 6208591990) 46 U/L 34-122 ALTv (test code = 1742-6) 21 U/L 5-50 AST(SGOT) (test code = 2525331993) 43 U/L 13-40 H eGFR (test code = 98940-1) 111.8 mL/min/1.73m2 CKD-EPI eGFR (2020). Assuming creatinine has been stable day-to-day for at least three months, the eGFR indicates Category G1 (>= 90 mL/min/1.73 m2) Lab Interpretation (test code = 16480-6) Abnormal [facility] Hospital[facility]IPASE2024-02-14 04:53:26* Test Item Value Reference Range Interpretation Comme nts LIPASE (test code = 1075123968) 105 U/L 0-220 Lab Interpretation (test cod e = 59150-9) Normal [facility] HospitalCB WITH [id number] 04:34:24* Test Item Value Reference Range Interpretation [...] 33.0 g/dL 31.2-35.0 RDW-SD (test code = 29668-7) 50.9 fL 38.5-51.6 RDW-CV (test code = 788-0) 13.7 % 12.1-15.4 PLT (test code = 777-3) 232 150-328 MPV (test code = 99906-4) 8.7 fL 9.8-13.0 L NRBC/100 WBC (test code = 2092168677) 0.0 0.0-10.0 NRBC x10^3 (test code = 0354010210) See_Comment [Automated messa ge] The system which generated this result transmitted reference range: 10*3/?L. The reference range was not used to interpret this result as normal/abnormal. GRAN MAT (NEUT) % (test code = 770-8) 58.8 % IMM GRAN % (test code = 6446017211) 0.90 % LYMPH % (test code = 736-9) 27.8 % MONO % (test code = 5905-5) 10.5 % EOS % (test code = 713-8) 1.3 % BASO % (test code = 706-2) 0.7 % GRAN MAT x10^3(ANC) (test code = 0270925569) 5.68 10*3/uL 1.99-6.95 IMM GRAN x10^3 (test code = 3535260200) 0.09 10*3/uL 0.00-0.06 H LYMPH x10^3 (test code = 731-0) 2.69 10*3/uL 1.09-3.23 MONO x10^3 (test code = 742-7) 1.02 10*3/uL 0.36-1.02 EOS x10^3 (test code = 711-2) 0.13 10*3/uL 0.06-0.53 BASO x10^3 (test code = 704-7) 0.07 10*3/uL 0.01-0.09 Lab Interpretation (test code = 71212-8) Abnormal [facility] HospitalCT ABDOMEN PELVIS W [id number] 03:32:43Exam: CT Abdomen and Pelvis With Contrast, [...] abnormality.Soft tissues: Small fat-containing inguinal hernias.[facility] HospitalEthanol2024-02-13 02:32:24* Test Item Value Reference Range Interpretation Comme nts ALCOHOL (test code = 7581333274) 117 mg/dL LOUISE (test code = LOUISE) <10 [id number] Toxic>100 Depression of CRITICAL POWER INSTALL TECHNICIAN>400 Fatalities Reported [facility] HospitalComp. Metabolic Panel (39805)2023-12-22 02:31:43* Test Item Value Reference Range Interpretation Comme nts NA (test code = 1151395340) 133 mmol/L 135-145 L K (test code = 2969011039) 3.3 mmol/L 3.5-5.0 L CL (test code = 4932264912) 102 mmol/L 98-108 CO2 TOTAL (test code = 4022489416) 25 mmol/L 23-31 AGAP (test code = 6947586051) 6 2-16 BUN (test code = 4531257495) 11 mg/dL 7-23 GLUCOSE (test code = 2558636333) 75 mg/dL 70-110 CREATININE (test code = 3189674252) 0.51 mg/dL 0.60-1.25 L TOTAL BILI (test code = 1143572841) 0.5 mg/dL 0.1-1.1 CALCIUM (test code = 2210961701) 8.9 mg/dL 8.6-10.6 T PROTEIN (test code = 9127657081) 7.2 g/dL 6.3-8.2 ALBUMIN (test code = 2576733139) 4.5 g/dL 3.5-5.0 ALK PHOS (test code = 6561535059) 46 U/L 34-122 ALTv (test code = 1742-6) 15 U/L 5-50 AST(SGOT) (test code = 9986002736) 24 U/L 13-40 eGFR (test code = 59115-3) 119.7 mL/min/1.73m2 CKD-EPI eGFR (2020). Assuming creatinine has been stable day-to-day for at least three months, the eGFR indicates Category G1 (>= 90 mL/min/1.73 m2) Lab Interpretation (test code = 67847-9) [facility]:43* Test Item Value Reference Range Interpretation Comme nts LIPASE (test code = 9090249007) 121 U/L 0-220 Lab Interpretation (test cod e = 87638-8) Normal [facility] HospitalProthrombin Time / NYT1726-79-16 02:21:02* Test Item Value Reference Range Interpretation Comme nts PROTIME PATIENT (test code = 5964-2) 10.5 10.1-12.6 INR (test code = 6301-6) 0.9 Normal INR <1.1; Warfarin Therapeutic range 2.0 to 3.0 or 2.5 to 3.5, depending upon the indications. Lab Interpretation (test code = 89441-7) Normal [facility] with Cgch0194-95-13 02:14:04* Test Item Value Reference Range Interpretation [...] 34.0 g/dL 31.2-35.0 RDW-SD (test code = 61333-9) 49.1 fL 38.5-51.6 RDW-CV (test code = 788-0) 13.5 % 12.1-15.4 PLT (test code = 777-3) 260 150-328 MPV (test code = 12417-0) 8.7 fL 9.8-13.0 L NRBC/100 WBC (test code = 4554424686) 0.0 0.0-10.0 NRBC x10^3 (test code = 5607757612) See_Comment [Automated messa ge] The system which generated this result transmitted reference range: 10*3/?L. The reference range was not used to interpret this result as normal/abnormal. GRAN MAT (NEUT) % (test code = 770-8) 64.3 % IMM GRAN % (test code = 5176743869) 0.90 % LYMPH % (test code = 736-9) 24.2 % MONO % (test code = 5905-5) 9.1 % EOS % (test code = 713-8) 0.7 % BASO % (test code = 706-2) 0.8 % GRAN MAT x10^3(ANC) (test code = 2602561707) 8.73 10*3/uL 1.99-6.95 H IMM GRAN x10^3 (test code = 7223307528) 0.12 10*3/uL 0.00-0.06 H LYMPH x10^3 (test code = 731-0) 3.28 10*3/uL 1.09-3.23 H MONO x10^3 (test code = 742-7) 1.23 10*3/uL 0.36-1.02 H EOS x10^3 (test code = 711-2) 0.10 10*3/uL 0.06-0.53 BASO x10^3 (test code = 704-7) 0.11 10*3/uL 0.01-0.09 H Lab Interpretation (test code = 62301-2) [facility]normal [facility] HospitalTROPONIN G5392-58-56 10:16:22* Test Item Value Reference Range Interpretation Comments TROPONIN I (test code = 2385549137) 0.007 ng/mL See_Comment [Automated message] The system [...] of biotin. Lab Interpretation (test code = 20202-7) Normal [facility] HospitalN-TERMINAL XTK-AIX6781-51-14 10:13:01* Test Item Value Reference Range Interpretation Comme nts NT-proBNP (test code = 8798684146) 52 pg/mL See_Comment [Automated message] The system which generated this result transmitted reference range: <=125. The reference range was not used to interpret this result as normal/abnormal. LOUISE (test code = LOUISE) Biotin has been reported to cause a negative bias, interpret results relative to patient's use of biotin. Lab Interpretation (test code = 52647-3) Normal [facility] HospitalCOMP. METABOLIC PANEL (84615)2022-02-20 10:04:02* Test Item Value Reference Range Interpretation Comme nts NA (test code = 8496439848) 137 mmol/L 135-145 K (test code = 6827521265) 3.6 mmol/L 3.5-5.0 CL (test code = 5074294550) 99 mmol/L 98-108 CO2 TOTAL (test code = 6221769736) 25 mmol/L 23-31 AGAP (test code = 8795516125) 2-16 BUN (test code = 7541485011) 6 mg/dL 7-23 L GLUCOSE (test code = 3037150203) 88 mg/dL 70-110 CREATININE (test code = 6073774451) 0.55 mg/dL 0.60-1.25 L TOTAL BILI (test code = 7678842960) 0.8 mg/dL 0.1-1.1 CALCIUM (test code = 5382314888) 8.9 mg/dL 8.6-10.6 T PROTEIN (test code = 5802805953) 7.5 g/dL 6.3-8.2 ALBUMIN (test code = 0368617147) 4.8 g/dL 3.5-5.0 ALK PHOS (test code = 5510717640) 113 U/L 34-122 ALTv (test code = 1742-6) 84 U/L 5-50 H AST(SGOT) (test code = 5300191716) 107 U/L 13-40 H eGFR (test code = 5160924080) mL/min/1.73m2 LOUISE (test code = LOUISE) Association [...] imaging tests). Lab Interpretation (test code = 70049-4) Abnormal [facility] HospitalLIPASE, OWSJA2776-12-74 10:03:21* Test Item Value Reference Range Interpretation Comme nts LIPASE (test code = 5410070644) 193 U/L 0-220 Lab Interpretation (test cod e = 18200-5) Normal [facility] HospitalCB WITH MKAK6574-44-28 09:39:17* Test Item Value Reference Range Interpretation Comme nts WBC (test code = 6690-2) See_Comment [Automated Tagora] The system which generated this result transmitted reference range: 4.20 - 10.70 10*3/?L. The reference range was not used to interpret this result as normal/abnormal. RBC (test code = 789-8) See_Comment [Automated Tagora] The system which generated this result transmitted [...] g/dL 31.2-35.0 H RDW-SD (test code = 81525-2) 44.4 fL 38.5-51.6 RDW-CV (test code = 788-0) 11.9 % 12.1-15.4 L PLT (test code = 777-3) See_Comment [Automated messa ge] The system which generated this result transmitted reference range: 150 - 328 10*3/?L. The reference range was not used to interpret this result as normal/abnormal. MPV (test code = 80237-1) 9.2 fL 9.8-13.0 L NRBC/100 WBC (test code = 4859707243) See_Comment [Automated Gesplan ssage] The system which generated this result transmitted reference range: 0.0 - 10.0 /100 WBCs. The reference range was not used to interpret this result as normal/abnormal. NRBC x10^3 (test code = 8888174815) <0.01 See_Comment [Automated messa ge] The system which generated this result transmitted reference range: 10*3/?L. The reference range was not used to interpret this result as normal/abnormal. GRAN MAT (NEUT) % (test code = 770-8) 69.9 % IMM GRAN % (test code = 7453382476) 1.50 % LYMPH % (test code = 736-9) 18.9 % MONO % (test code = 5905-5) 7.0 % EOS % (test code = 713-8) 1.9 % BASO % (test code = 706-2) 0.8 % GRAN MAT x10^3(ANC) (test code = 8771029117) 7.15 10*3/uL 1.99-6.95 H IMM GRAN x10^3 (test code = 7922134004) 0.15 10*3/uL 0.00-0.06 H LYMPH x10^3 (test code = 731-0) 1.93 10*3/uL 1.09-3.23 MONO x10^3 (test code = 742-7) 0.72 10*3/uL 0.36-1.02 EOS x10^3 (test code = 711-2) 0.19 10*3/uL 0.06-0.53 BASO x10^3 (test code = 704-7) 0.08 10*3/uL 0.01-0.09 Lab Interpretation (test code = 13757-9) Abnormal [facility] Notes Date/Time Note Provider Source 2024-02-17 21:43:52 ytF2AQFPcWpEArxmiHFpHaepiIByJZy3sRd Tap5yvOkfu9ZWyWCYCdF2xiHthFwO8655-1 02-16T21:43:52 No answer in lobby. 83675-4Evpdrxlkj department WwqsQW3254-73-16C90:44:07[facility] NoteTXT1.2.840.869564.1.13.104.2.7. 2.829007|[id number] for patient rxha70909-6SitfAGPHYQEGFXIMelyfdvft C-CDA narrative oemk706038351Xswthp J Hoot RN[address]OeinSkjiunncfQowtbikecUUWJ237799613 3ELUIBWLUFPBKHXPPEQXNIF9314-54-00D3 1:44:071.2.840.611078.1.72.3.15|1.2 .840.599714.1.13.104.2.7.2.727879_2 [id number] Angy Turner RN [facility] 2024-02-17 21:42:10 IgFhOqzBsTh5aEQ9A3Y7UuRsmc8p7TaISpe X1yRY7rf3PsW5g99iooeFKa5npQNC2133-6 02-16T21:42:10 Pt's blood pressure cuff and pulse ox found lying on chair. Called for patient in lobby 2 times, no answer. No one in lobby. 46025-3Kwpscugby department QuuoJF5255-63-28D77:44:10[facility] NoteTXT1.2.840.772917.1.13.104.2.7. 2.846504|[id number] for patient ppsh53901-1WalaNVBFXHKRGMKDaufyossx C-CDA narrative bmpf813659397Vrihy A. Campbell RNRA[id number] 2OMEWVQJFCDBOYRCTOASAVI2168-98-46J6 1:44:101.2.840.686498.1.72.3.15|1.2 .840.817459.1.13.104.2.7.2.727879_2 [id number] Sierra Samaniego RN [facility] 2024-02-17 21:41:09 H0GHQXOA+bFja3Ox3yrusQqvlDhLVUxe+IW tFXs0v53TRoy9i6UBIXsXtA8YFot16674-8 02-16T21:41:09 Pt not in lobby or in room. No answer in lobby. 90128-4Jajojycsn department SllzUX4933-86-24V30:41:40[facility] NoteTXT1.2.840.836138.1.13.104.2.7. 2.050168|[id number] for patient cnoq37865-6NgvnBFJDFJEBREDXlbejeveq C-CDA narrative textUT17 [address] [id number] 7DIIDEGXIRLMKUWCEFEFBQT2379-35-98D1 1:41:401.2.840.352232.1.72.3.15|1.2 .840.179053.1.13.104.2.7.2.727879_2 [id number] [facility] 2024-02-17 21:14:29 COu9Gy1zLFSB5T34RH9Pjtu5YwDUDN0vNoe Q+AJYnY7YHwCxJ4ukY2dChp/DMNko6846-9 1:14:29 Pt not in FT01- and no answer in lobby. 21839-1Hlpesyukz department HvrrSJ9575-97-29I25:15:32[facility] NoteTXT1.2.840.295965.1.13.104.2.7. 2.628704|7004018015MKXzpvcibtk for patient lqzb35319-3ErrqJIWAHKPWYDYXdmrvltqc C-CDA narrative text[address] FpbaWququcsllCuiuradtvRTLE625380110 1DMYVUTUDINMXXIECFIKVVQ0732-25-42T1 1:15:321.2.840.483971.1.72.3.15|1.2 .840.557326.1.13.104.2.7.2.727879_2 [id number] [facility] 2024-02-17 20:48:50 6qT75xIkBRqCn3BGGNqxuNpnR0vyQHI9S8J BUw2FrfyLw3NWQB/JJ1/ga2YHSY3m2216-2 02-16T20:48:50 Pt arrives ambulatory to ED c/o SOB, right upper abdominal pain, and left leg and hip pain. Pt states that he has been on prednisone for about 5 yrs which had given him osteoporosis which is causing his leg pain. Reports hx of COPD, o2 is generally @ 91 he says. 67710-1Jdhtodmao department Triage avynTL1638-40-74D67:53:54[facility] Triage noteTXT1.2.840.498096.1.13.104.2.7. 2.563165|7856546806TQBcqihlbka for patient chbh93481-8Yoscijmxz department NoteLNNARRATIVEFormatted C-CDA narrative akwc499891274Mmgjqg L Dl RNUT[address] IjvtFjkptzktbWcpzyjkukRXXI157820898 9EPCKUTEORZXYVENBJQSLFC4119-31-13C9 0:53:541.2.840.011200.1.72.3.15|1.2 .840.690286.1.13.104.2.7.2.727879_2 [id number] Leah L Dl MACHUCA [facility] 2024-02-08 21:37:56 WJduOgHO16eki8fkokCcfuE02C+ZlkfFHgJ le/WTx7CZ4LSQL5+V70V+vj6T3+qh9985-5 02-07T21:37:56 Pt left AMA 75909-9Ilpkflkkk department NkceXO5930-32-15P58:38:11[facility] NoteTXT1.2.840.562448.1.13.104.2.7. 2.165100|9133368928GEEjxunukkj for patient flxn59112-4XgnoBLBADZHOGCJDajoraite C-CDA narrative atrl390297186VstydKylie Foster RNUT[address] OwvqWfewmwzfkOofeylcmoVICT582124293 9YKUXOTVTOSZREPVAGSTJUH4824-24-42V1 1:38:111.2.840.097947.1.72.3.15|1.2 .840.692979.1.13.104.2.7.2.727879_2 [id number] Kylie Foster RN [facility] 2024-02-08 21:32:00 P930lPnrAW/MsSLpkEGJkgenvqUGEW3VovC 9g/M06RxMgClrTD1QcWUFNFG2t5nL8345-5 02-07T21:32:00 Patient leaving AMA after self removing [...] ambulatory with steady [place], [place] 56089-0Uzxhrewdj department VesiXE1236-96-97Z99:40:32[facility] NoteTXT1.2.840.127444.1.13.104.2.7. 2.655644|0551670652LMJfvtqbioh for patient sntg96635-4AaapZKAIVGDOTAVXnpfosyjx C-CDA narrative textUT[address] StreetNfhhVhmnjnkxyRwyzaykvvRPDP203132544 5YBVOOPFZDGJTZWFSGHQUVV2651-44-28S9 1:40:321.2.840.892660.1.72.3.15|1.2 .840.898626.1.13.104.2.7.2.727879_2 [id number] [facility] 2024-02-08 20:54:38 wD85KtK+oC0Ax2wM2xdTZwIh/bCPCdxwEFA QplSraiRBbomSLHWMwl4Hm1Sz7Oll0557-6 02-07T20:54:38 Pt states he uses O2 at home, portable O2 is broken 27639-8Awwpjqmlt department UztnGH7581-94-38M95:55:13[facility] NoteTXT1.2.840.398629.1.13.104.2.7. 2.238326|0967109710EMBqqsnwrui for patient hujm26371-2OdszLYQWHHSLFCNBaddcuqan C-CDA narrative [id number] 4ELQOPUILSOXYWLDSLDKVCK6710-52-43A3 0:55:131.2.840.901226.1.72.3.15|1.2 .840.785438.1.13.104.2.7.2.727879_2 [id number] [facility] 2024-02-08 20:51:11 el/w2YTNZ+eRehUohQgepVoc10CK/x7DhYW 47kzGe5cAu7ktmcY3asDpWk+88tZh9387-5 02-07T20:51:11 Pt ambulates with cane 56039-3Xfuslzumx department XqybLW5980-15-06X32:51:26[facility] NoteTXT1.2.840.260109.1.13.104.2.7. 2.621176|3770656286QRZpcuelwtp for patient ljsx20334-4XolbNJOYLLQQFKNIfuaebjug C-CDA narrative [id number] 3TZSIUOUYOCHKRAIGXSAZKE1778-36-29C7 0:51:261.2.840.263418.1.72.3.15|1.2 .840.391057.1.13.104.2.7.2.727879_2 [id number] [facility] 2024-02-08 20:43:13 7WrbsfvcZIbCmHUAuJ862mW/9GbsgI+2tFK wSCRRa/jxCVb/9ffxnwQNTmp/nARw8655-0 02-07T20:43:13 CC: Pt arrives SOB after leaving [...] 3 BC powders and drank 3 beers." 18271-9Seaoyvyxw department Triage cvcgRG3755-68-10Q31:48:36[facility] Triage noteTXT1.2.840.380711.1.13.104.2.7. 2.991433|4479750710YDTjgdowavn for patient kjsb98902-4Zxtvtmcop department NoteLNNARRATIVEFormatted C-CDA narrative bxyy715600194Wkzfsg R Shehadeh RN[address] HmbkWhlwkuuqtHsmohzjqrDVEU495470711 6XJTLVOOKPPJRHFHDEJHBOH0052-56-12J7 0:48:361.2.840.309404.1.72.3.15|1.2 .840.448131.1.13.104.2.7.2.727879_2 [id number] Leah King RN [facility] 2024-02-08 17:04:05 m9Tszvm+wBn3BxENWShARVMedWfYK3la7D+ vXQOnp/Gafi/Gp8LzKs4YSFm2WvBb8104-0 02-07T17:04:05 Patient walked to the nurses station and stated "I have another emergency and I have to leave right now. I need this IV taken out immediately."Encouraged patient to stay and he stated "I have to leave immediately and I don't want to take this out myself" IV d/c at this time and patient ambulated out of the department with a steady gait. 37056-6Wkhdfpuyd department OkhxXU0273-43-13L09:05:22[facility] NoteTXT1.2.840.149726.1.13.104.2.7. 2.332575|2682135275LXElyivbgkd for patient kbfs38329-5AaurVNDIJJSWUBENetjqiobu C-CDA narrative koyx902856699Asuw M Hayes RN[id number] 9PWIZHRTJAIRBZVKWAWPMCS3928-95-37B7 7:05:221.2.840.655377.1.72.3.15|1.2 .840.610455.1.13.104.2.7.2.727879_2 [id number] Allison Zhang RN [facility] 2024-02-08 14:23:02 fsweolRejaFjqCuX3d4bhKd5jC7L/Z3pRfm uswrhKjDYJwQ/aXkDjmSp8NdDnwFt5040-3 02-07T14:23:02 Pt ambulates with a cane 93624-4Qkfnqbpis department NppgTH4561-11-97H19:23:12[facility] NoteTXT1.2.840.998444.1.13.104.2.7. 2.111486|9855322403EQCepkkjmry for patient zvgk52405-9FthhMAXIWIHLRPPVtfgtwmkp C-CDA narrative ioce298437521Awyvl M Martinez [address]vdGal[address]vestonTXTX[address] 4TBANFAMWQHWDVIHLHUJJFM4534-48-98M9 4:23:121.2.840.526991.1.72.3.15|1.2 .840.970778.1.13.104.2.7.2.727879_2 [id number] Kylie Foster RN [facility] 2024-02-08 14:13:15 Y7i710/05FiQI5Nx2vsxbasOtqRWgSfKizy UKdqdmLC0JX1K6ErPYa5EMlxqCAKh7263-6 4:13:15 Pt has taken 8-packets of BC [...] only thing that helps." Face is flushed. 14665-8Edaqovpos department Triage rtsmSB8736-87-56A24:17:26[facility] Triage noteTXT1.2.840.993904.1.13.104.2.7. 2.680825|6085344389ZHZkvnujdpf for patient vnwt71148-2Wnkgrqqff department NoteLNNARRATIVEFormatted C-CDA narrative jbjb785288777Lkdagcm Fief RN[address] ZcurCrxlffrcyCfecjeywtLTEC238403066 7DJMMMAIITLRPQVMCICNKXH5224-90-54H4 4:17:261.2.840.069669.1.72.3.15|1.2 .840.821352.1.13.104.2.7.2.727879_2 [id number] Hali Aviles RN [facility] 2024-01-14 06:16:25 2Kqy8MpnXc3Kp9b0ssUQKfp3Yu3R/FhSiR0 IF6uBC7exkrlDad+oSzW1rZutocZw4347-5 06:16:25 Pt given printed and verbal discharge [...] w/d, pt leaving in no apparent distress, 41175-3Nqewupgwf department HvqeGY1172-60-53V74:17:20[facility] NoteTXT1.2.840.943631.1.13.104.2.7. 2.733129|4227178554WKBtpuwmstl for patient swqj44752-1VzkuCLDDNHGUWGWLvkeqipto C-CDA narrative textUT[address] KjunTzcjhhbmiZfjduqjmlNJXG533211597 0TICOMIXBXTWHKHIMGCIZIQ9139-60-67D5 6:17:201.2.840.242719.1.72.3.15|1.2 .840.031782.1.13.104.2.7.2.727879_2 [id number] [facility] 2024-01-14 04:49:43 x7MTjksPBLyTv7d8unN8VPRwag8Fa+E0JFo 9c2QR4xTq2fajIVyvQeqXg9fkPyHv8362-6 3-07T04:49:43 CC: "My COPD is acting up [...] ext without difficulty, amb with steady gait 80517-7Yfcluatdi department Triage tilcPJ5471-85-44S75:55:49[facility] Triage noteTXT1.2.840.052644.1.13.104.2.7. 2.100453|3650331504GFFnjcaxvur for patient osih68546-2Qynevrkga department NoteLNNARRATIVEFormatted C-CDA narrative ouum572198595Dekwlk R Shehadeh RN[address] YapiJwuaufmmtJlxregtpqSLWZ413035676 1IOLZSPCTXPGZNGPUKKVFMS2558-34-04D1 4:55:491.2.840.679489.1.72.3.15|1.2 .840.921184.1.13.104.2.7.2.727879_2 [id number] Leah King RN [facility] 2024-01-14 04:43:00 Boz97plzQ3exYCoVmzTqv2q8JkHjty3J6yo djsmrB+5wmf7MjcoaknXk40uJt3z/04:43:00Associated Order(s): EKG-12 Lead ROUTINE ONCEPre-Procedure Diagnose(s): Chest pain, unspecified typePost-Procedure Diagnose(s): Chest pain, unspecified type [facility] Emergency Department NotePatient Name: Randy BrionesDate of : 1970 53 year old maleTreatment Room: TX1/WW2Ohhmvar Record Number: [id number] Care Physician: Adrianna King Escorted by: Family [5]Mode of Arrival: Personal means [1]EMS Treatment Prior to ED Arrival: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 METABOLIC PANEL (62409) - AbnormalResult Value Ref RangeNA 138 135 [...] 49 (*) 13 - 40 U/LeGFR 93.3 mL/min/1.83m9IBJ WITH DIFF - AbnormalWBC 11.59 (*) 4.20 [...] 220 U/LCOVID-19 (ID NOW RAPID TESTING) - IsmehwZJAH-EeK-8 Rapid ID NOW Not Detected Not DetectedETHANOLALCOHOL 62 mg/dLEKG:If EKG completed, see Procedure Note.Orders and Treatments:Orders Placed This EncounterProcedures XR CHEST 1 VW TROPONIN I COMP. METABOLIC PANEL (16379) LIPASE, SERUM CBC WITH DIFF N-Terminal Pro-Bnp Ethanol COVID-19 (ID NOW TESTING) Lab Only COVID Interpretation O2 Per ProtocolOrders Placed This EncounterMedications morpHINE (4 mg/mL) injection 4 mg ondansetron (ZOFRAN (PF)) injection 4 mg ipratropium-albuteroL (DUONEB) 0.5 mg-3 mg(2.5 mg base)/3 mL nebulizer solution 3 mLFirst Provider Eval:ED EventsDate/Time Event User Imkgtwxv27/07/24 0510 Medical Screening Begins JAC NAVARRO MD --01/14/24 0510 First Provider Evaluation JAC NAVARRO MD --ED COURSEDiagnosis/Impression as of 01/14/24 0605Chest pain, unspecified typeBronchitisProcedures:EKG-12 Lead ROUTINE ONCEDate/Time: 01/14/2024 5:24 AMPerformed by: Jac Navarro MDAuthorized by: Jac Navarro MDECYovani interpreted by ED Physician in the absence of a food service worker hospital: yesPrevious ECG:Previous ECG: Compared to currentSimilarity: No [...] taking these medicationsNo medications on fileFollow-up:Electronically signed by:Jca Navarro MD01/14/24 0600 41901-8Lpwtletlf Emergency department UqpzPR7574-88-75W81:00:50Physician Emergency department NoteTXT1.2.840.093147.1.13.104.2.7. 2.892421|[id number] for patient xiya56841-5Vuczizoay department NoteLNNARRATIVEFormatted C-CDA narrative text[address] EiihUevfacsbuDdzyvgxptHEXG359910370 8WNQEZWQPJLJFWBWNKJBVUS8762-09-84R9 6:00:501.2.840.386535.1.72.3.15|1.2 .840.149926.1.13.104.2.7.2.727879_2 [id number] [facility] 2023-12-22 23:12:16 OfR1+uoRuhYgbT6BEzIA4rnDBcj4ZdXUbJ2 lEWuGidwhKMOsXaNb63a2TwZcq9bI9165-7 12-22T23:12:16 Pt given printed and verbal discharge [...] with steady gait, in no apparent distress, 66342-2Gssmswrsy department EgjpNH2700-67-10O96:13:50[facility] NoteTXT1.2.840.681671.1.13.104.2.7. 2.002577|[id number] for patient tmsu01896-0NpelWEKQUIAXUJPAbrsqzffz C-CDA narrative bzgq530431358GvnvtMary Magaña RN[address] StreetWluhXpgialfwmEtmwiofdmJHCH524885851 1EBTXNLBQZXNQTHQZPBMJJU0270-81-79M0 3:13:501.2.840.720382.1.72.3.15|1.2 .840.054358.1.13.104.2.7.2.727879_2 [id number] Mary Magaña RN [facility] 2023-12-22 21:41:55 nRKpD3TwzP66RuCbqimuxIXeFCOIJVrnCQd bHXZKXtlkuyLqeVwnh9i+8+MJO7N19213-8 12-22T21:41:55 Pt arrives ambulatory to ED reporting bleeding with stools and 10/10 abdominal pain. States he was here last night but had to leave before receiving results d/t having to work. Says the pain became worse so he came back in. 64903-0Kqsjpbswc department Triage cuhdMQ4760-63-33G29:48:52[facility] Triage noteTXT1.2.840.069875.1.13.104.2.7. 2.873987|[id number] for patient wawx51240-8Itenfwqal department NoteLNNARRATIVEFormatted C-CDA narrative [id number] L Williams RNUT[id number] 7HBYXTQRFSYCNEYFIETOTSO2191-87-76J9 1:48:521.2.840.207915.1.72.3.15|1.2 .840.510118.1.13.104.2.7.2.727879_2 [id number] Leah Quarles Dl MACHUCA [facility] 2023-12-21 21:31:00 Hw9ZsHfBE+k9PvP0zO/TY7A3Lyvl43Kx5v9 11zog+VLpBJFZZ9D+xhd2Zr8l8z1R8199-9 12-21T21:31:00 Patient leaving AMA,discussed risks of leaving against medical advice, Dr. Maciel aware and notified of patient's decision.Patient encouraged to seek medical attention for any new/prolonged/worsening of symptoms and stressed importance of follow up with a medical provider as soon as possible. AMA form explained, patient signed form.IV d'cd, dressing to site.Patient leaving ambulatory with steady gait, appears in no distress. 48264-6Ydtrahkzl department RvxfZS1483-00-42E15:38:39Emergency department NoteTXT1.2.840.464532.1.13.104.2.7. 2.362975|[id number] for patient lvzd74142-0JcfuWLXBTZVBBKBAlejzxasf C-CDA narrative [id number] Magaña RNUT[id number] 9HUFCGTSTWBMDNNVNYNSFSN6246-16-11P2 1:38:391.2.840.643208.1.72.3.15|1.2 .840.089108.1.13.104.2.7.2.727879_2 [id number] Mary Magaña RN [facility] 2023-12-21 21:30:00 5Pw6Kf+UvaT3SEY20dzosDidWlAwJKEIilt 1x3LR+eiCOF2dN5BV71uIR/tiBghY3268-6 12-21T21:30:00 Pt wished to leave AMA. Pt states " yall were wonderful but 3am come real early." 78199-1Hygvsbtkd department NolcCW9791-52-13N48:36:58[facility] NoteTXT1.2.840.350801.1.13.104.2.7. 2.896236|[id number] for patient mgvs48079-4YawiHIEWRFXHDQKQajfjzkow C-CDA narrative text[address]Om[id number] 6JNTTSRTTHNIPZCICPQTBRG7449-36-87W8 1:36:581.2.840.456685.1.72.3.15|1.2 .840.056328.1.13.104.2.7.2.727879_2 [id number] [facility] 2023-12-21 21:26:22 RIjokUkMptMkisVG2d2MqEySwFQHmsgPnPA 3JUYhU0mAAz8hui7IHfGR6b7ArJbq0668-7 12-21T21:26:22 Pt asking to go outside and smoke, wants to go home and eat. Pt educated on risks of leaving AMA. Provider informed pt is in pain. 02347-4Yyncpgngx department IdbaEZ5612-35-34P74:33:35[facility] NoteTXT1.2.840.445577.1.13.104.2.7. 2.523631|[id number] for patient szsz74184-9NprbZZQZUAIMYKQIvywvfjpg C-CDA narrative [id number] R Christine MACHUCA[id number] 1HVUKURWUGRYASDYFOQSZQZ9522-87-81E7 1:33:351.2.840.382684.1.72.3.15|1.2 .840.434610.1.13.104.2.7.2.727879_2 [id number] Leah Baum Christine RN [facility] 2023-12-21 19:31:50 7ux9+6kcMUf0EbluC3lHZ1pLRpMXs5vYzvu HnISlkB8bnHpMb4cPqCRt4kt+QSkN7698-2 9:31:50 Pt arrived ambulatory with complaints of bright red rectal bleeding and generalized abdominal pain this afternoon. Pt states his stool was normal consistency but continuous bright red blood. Denies this happening before.Pt is an alcoholic, had 2 beer [employer]. States he vomits all the time but not something new today. 69957-0Vllpwknzs department Triage iucaYX4122-90-41I13:33:28[facility] Triage noteTXT1.2.840.585581.1.13.104.2.7. 2.476313|[id number] for patient ftqm68488-5Uibszpral department NoteLNNARRATIVEFormatted C-CDA narrative [id number] D Roman RN[id number] 1GJROGYEEMUXOIYSDCEGFQW2058-27-36Z8 9:33:281.2.840.538941.1.72.3.15|1.2 .840.176798.1.13.104.2.7.2.727879_2 [id number] Gabi Esqueda RN [facility] 2023-11-10 20:13:39 huBhiMQRNh0EzzKAIWh5CtmU76i/TlPnCn4 hne/EM401nM7YDoQyQOw7xfyKAmuU2624-7 11-10T20:13:39 Pt requesting to leave AMA. ERP notified. Pt counseled to remain, risks of leaving AMA including discussed with pt. Pt continued to decline further ER evaluation at this time. AMA papers signed, witnessed, and placed on patient's chart. Pt left ambulatory. VS stable, no ataxia noted, GCS 15, A&Ox4. 09065-6Hxujwcgjs department AlshVG6116-29-32H81:13:52Emergency department NoteTXT1.2.840.411328.1.13.104.2.7. 2.581616|[id number] for patient qtoc94583-2EslrEKOOLCGTSVQAmthcdlmb C-CDA narrative [id number] R Goodrich RN[address] Vt[id number] 5YGRVAOAFNJFQXOQUEMYSBE5522-15-58O4 0:13:521.2.840.103167.1.72.3.15|1.2 .840.317343.1.13.104.2.7.2.727879_1 [id number] Briseida Medrano RN [facility] 2023-11-10 19:30:29 o2Or5/EuO7j6O8hbq+7HHtdmVtxF/EYpEtf ZSMWgzH4BDjJ/hmNg47xPa2VS3j1k2207-7 11-10T19:30:29 Patient arrived to ED c/o SOB and COPD exacerbation. Symptoms started this morning. Patient wears 3L NC at home. Patient is a smoker. Patient states having the chills, diarrhea, and vomiting. States having sharp pains in chest from coughing. [id number] Triage [id number]:35:27[facility] Triage [id number] for patient [id number] department NoteLNNARRATIVEFormatted C-CDA narrative [id number]-Glazt McInnis RN[address] [id number] Sreedhar Gomez RN [facility]
[2024-04-05] MEDS ORDERED: METHYLPREDNISOLONE 125 MG INJ ONE (18:35)
[2024-04-05] MEDS ORDERED: IPRATROPIUM BROM 0.5MG/2.5ML ONE (18:35)
[2024-04-05] MEDS ORDERED: LEVALBUTEROL 1.25 MG/3 ML NEB ONE (18:36)
[2024-04-05] MEDS ORDERED: KETOROLAC 30 MG/ML INJ ONE (18:36)
[2024-04-05] MEDS ORDERED: MAGNESIUM SULFATE 1 gm IVPB 1 GM/100 ML BAG IV ONE (18:36)
[2024-04-05] MEDS ORDERED: MORPHINE 4 MG/ML SYR ONE (19:18)
--- NOTE | 2024-04-05 19:35 | EDPHYS ---
Physician Documentation [facility] Name: Randy Briones Age: 53 yrs Sex: Male : 1970 Arrival Date: 04/05/2024 Time: 17:43 Bed 14 Private MD: ED Physician Dheeraj Thibodeaux HPI: 04/05 19:29 This 53 yrs old Male presents to ER via EMS with complaints of Shortness Of Breath. rn 19:29 The patient has shortness of breath at rest, with light activity. Onset: The rn symptoms/episode began/occurred at an unknown time. Duration: The symptoms are continuous. The patient's shortness of breath is aggravated by coughing, exertion, light activity, is alleviated by nebulizer treatment. Severity of symptoms: At their worst the symptoms were moderate in the emergency department the symptoms are unchanged. The patient has experienced similar episodes in the past. Patient recently admitted to this hospital for pneumonia and COPD, discharged home, seen here earlier today and discharged home. Briefly went home and returned quickly for worsening shortness of breath. Labs were unremarkable and within a few hours so not repeated. Chest x-ray shows improving aeration compared to admission. Patient still with tachypnea and wheezing.. Historical: - Allergies: 18:05 Lisinopril; cm10 - PMHx: 18:05 Alcoholism; COPD; Hepatitis B (Hypertension); home 02 3LNC PRN; Hypertension; cm10 Osteoporosis; - PSHx: 18:05 Amputation of left index finger; cm10 - Immunization history:: Adult Immunizations up to date. - Infectious Disease History:: Denies. - Social history:: Smoking status: Patient reports the use of cigarette tobacco products, smokes 1.5 packs per day. - Family history:: not pertinent. - Hospitalizations: : The patient was recently seen at [facility]. ROS: 19:29 Constitutional: Negative for fever, chills, and weight loss, Cardiovascular: Positive rn for chest pain Respiratory: Positive for shortness of breath and wheezing Abdomen/GI: Negative for abdominal pain, nausea, vomiting, diarrhea, and constipation, MS/Extremity: Negative for injury and deformity, Skin: Negative for injury, rash, and discoloration, Neuro: Positive for generalized weakness Exam: 19:29 Constitutional: This is a well developed, well nourished patient who is awake, alert, rn moderate tachypnea Cardiovascular: Regular rate and rhythmD. No pulse deficits. Respiratory: Moderate tachypnea with diminished breath sounds bilaterally and wheezing bilaterally Abdomen/GI: Soft, non-tender Neuro: Awake and alert, GCS 15 Vital Signs: 18:02 BP 153 / 97; Pulse 93; Resp 28; Temp 97.8(O); Pulse Ox 100% on R/A; Weight 73.94 kg; cm10 Height 5 ft. 4 in. ; Pain 10/10; 19:36 BP 145 / 83; Pulse 102; Resp 20; Pulse Ox 96% on R/A; Pain 10/10; nj1 21:51 BP 108 / 53; Pulse 78; Resp 19; Pulse Ox 92% on R/A; nj1 04/06 00:00 BP 130 / 82; Pulse 83; Resp 15; Temp 97.8; Pulse Ox 98% on 3 lpm NC; Pain 0/10; bm8 04/05 18:02 Body Mass Index 27.98 (73.94 kg, 162.56 cm) cm10 04/05 18:02 Pain Scale: Adult cm10 19:36 Pain Scale: Adult nj1 04/06 00:00 Pain Scale: Adult bm8 [place] Coma Score: 00:00 Eye Response: spontaneous(4). Motor Response: obeys commands(6). Verbal Response: bm8 oriented(5). Total: 15. MDM: 04/05 18:01 Patient medically screened. rn 19:29 Differential diagnosis: Chronic Obstructive Pulmonary Disease Myocardial Infarction rn pneumonia, Pneumothorax pulmonary edema. Data reviewed: vital signs, nurses notes, lab test result(s), EKG, radiologic studies, plain films, and as a result, I will admit patient. Consideration of Admission/Observation Patient was admitted/placed on observation. Escalation of care including admission/observation considered. Independent interpretation of the following test(s) in the Emergency Department X-Ray: My interpretation is Chest x-ray images negative for pneumonia and pneumothorax per my interpretation. Care significantly affected by the following chronic conditions: Chronic Obstructive Pulmonary Disease. Counseling: I had a detailed discussion with the patient and/or guardian regarding the historical points, exam findings, and any diagnostic results supporting the discharge/admit diagnosis, lab results, radiology results, the need for further work-up and treatment in the hospital. Response to treatment: the patient's symptoms have mildly improved after treatment, and as a result, I will admit patient. ED course: I personally spent 35 minutes engaged in work directly related to the individual patient's care. This does not include any time spent performing procedures. The patient has been deemed critically ill because of need for IV steroids, IV magnesium, oxygen supplementation and multiple nebulizer treatments for severe COPD exacerbation. 19:33 ED course: Labs reviewed from a few hours ago. No evidence of endorgan damage. No rn evidence of infection. Will admit for COPD exacerbation.. 04/05 23:23 Order name: Urinalysis w/ reflexes EDMS 04/05 23:23 Order name: CBC with Automated Diff EDMS 04/05 23:23 Order name: CBC with Automated Diff EDMS 04/05 23:23 Order name: Comprehensive Metabolic Panel EDMS 04/05 23:23 Order name: Comprehensive Metabolic Panel MS 04/06 05:23 Order name: Manual Differential EDMS 04/05 18:08 Order name: IV Start; Complete Time: 18:33 rn Administered Medications: 18:43 Drug: Magnesium Sulfate IVPB 1 grams IVPB once over 1 hrs Route: IVPB; Infused Over: 1 iw hrs; Site: left wrist; 04/06 00:36 Follow up: Response: No adverse reaction; IV Status: Completed infusion; IV Intake: [id number] 04/05 18:43 Drug: MethylPrednisoLONE IVP 125 mg IVP once Route: IVP; Site: left wrist; 04/06 00:36 Follow up: Response: No adverse reaction [facility] 04/05 18:43 Drug: Ketorolac IVP 15 mg IVP once Route: IVP; Site: left wrist; iw 04/06 00:36 Follow up: Response: No adverse reaction [facility] 04/05 18:43 Drug: Levalbuterol Inhalation 1.25 mg Inhalation once Route: Inhalation; 04/06 00:35 Follow up: Response: No adverse reaction [facility] 04/05 18:43 Drug: Levalbuterol Inhalation 1.25 mg Inhalation once Route: Inhalation; 04/06 00:35 Follow up: Response: No adverse reaction [facility] 04/05 18:43 Drug: Ipratropium Inhalation Aerosol 0.5 mg Inhalation once Route: Inhalation; 04/06 00:35 Follow up: Response: No adverse reaction [facility] 04/05 19:24 Drug: morphine IVP or IV 4 mg IVP once over 4 mins Route: IVP; Infused Over: 4 mins; cm10 Site: left wrist; 19:36 Follow up: Response: No adverse reaction; Pain is unchanged, physician notified nj1 Disposition: 19:33 Critical Care:. rn Disposition Summary: 04/05/24 19:34 Hospitalization Ordered Notes: Hospitalization Status: Observation rn Provider: Jacob Starr rn Condition: Stable rn Problem: an acute exacerbation rn Symptoms: have improved rn Bed/Room Type: Standard rn Location: Telemetry/MedSurg (observation)(04/06/24 15:25) kb3 Room Assignment: [facility](04/06/24 15:25) kb3 Diagnosis - COPD/ Chronic obstructive pulmonary disease with (acute) exacerbation rn - Dyspnea, unspecified rn Forms: - Medication Reconciliation Form rn - SBAR form rn - Leadership Thank You Letter rn labor and delivery time excluding procedures: 19:33 Critical care time: Bedside Care: 35 minutes. Total time: 35 minutes rn Signatures: Dispatcher [employer] Rebeca Hannon, RN RN iw Dheeraj Thibodeaux MD MD rn Calcote, Vanessa, RN RN vc1 Kylie Esquivel RN RN kb3 Klarissa Batista 6 Padmini Foster RN RN cm10 Liv Butler RN nj1 Paul Monteiro RN bm8 Corrections: (The following items were deleted from the chart) 22:02 19:34 Telemetry/MedSurg (observation) rn vc1 22:02 19:34 rn vc1 04/06 11:03 04/05 22:02 [facility] ER HOLD vc1 6 04/06 11:03 04/05 22:02 ERHOLD- vc1 [facility] 04/06 11:31 11:03 Telemetry/MedSurg (observation) [place] [id number] 11:31 11:03 [address] [place] [id number] 11:58 11:31 [facility] iw 15:25 11:31 [facility] ER HOLD [facility]3 15:25 11:58 ERHOLD- iw 3
--- NOTE | 2024-04-05 19:35 | ER ---
Nurse's Notes [facility] Name: Randy Briones Age: 53 yrs Sex: Male : 1970 Arrival Date: 04/05/2024 Time: 17:43 Bed 14 Private MD: Diagnosis: COPD/ Chronic obstructive pulmonary disease with (acute) exacerbation;Dyspnea, unspecified Presentation: 04/05 18:02 Chief complaint: Patient states: presented via [facility] for shortness of cm10 breath. Pt states that he was seen here earlier today and left because "no one came to check on me." Pt complaining of left sided chest wall pain. Pt was recently admitted for 2 days. Pt outside smoking prior to triage. Coronavirus screen: Client denies travel out of the [place] in the last 14 days. At this time, the client does not indicate any symptoms associated with coronavirus-19. Ebola Screen: Patient denies travel to an Ebola-affected area in the 21 days before illness onset. No symptoms or risks identified at this time. Initial Sepsis Screen: Does the patient meet any 2 criteria? RR > 20 per min. HR > 90 bpm. Does the patient have a suspected source of infection? No. Patient's initial sepsis screen is negative. Risk Assessment: Do you want to hurt yourself or someone else? Patient reports no desire to harm self or others. Onset of symptoms was April 05, 2024. 18:02 Method Of Arrival: EMS: [facility] cm10 18:02 Acuity: CANDACE 2 cm10 Triage Assessment: 18:05 General: Appears in no apparent distress. uncomfortable, Behavior is calm, cooperative. cm10 Historical: - Allergies: 18:05 Lisinopril; cm10 - PMHx: 18:05 Alcoholism; COPD; Hepatitis B (Hypertension); home 02 3LNC PRN; Hypertension; cm10 Osteoporosis; - PSHx: 18:05 Amputation of left index finger; cm10 - Immunization history:: Adult Immunizations up to date. - Infectious Disease History:: Denies. - Social history:: Smoking status: Patient reports the use of cigarette tobacco products, smokes 1.5 packs per day. - Family history:: not pertinent. - Hospitalizations: : The patient was recently seen at [facility]. Screenin:03 [facility] ED Fall Risk Assessment (Adult) History of falling in the last 3 months, iw including since admission No falls in past 3 months (0 pts) Confusion or Disorientation No (0 pts) Intoxicated or Sedated No (0 pts) Impaired Gait No (0 pts) Mobility Assist Device Used No (0 pt) Altered Elimination No (0 pt) Score/Fall Risk Level. Abuse screen: Denies threats or abuse. Denies injuries from another. Nutritional screening: No deficits noted. Tuberculosis screening: No symptoms or risk factors identified. Assessment: 19:02 General: Appears in no apparent distress. Behavior is cooperative. Pain: Complains of iw pain in left lateral anterior chest and left lateral posterior chest. Neuro: Level of Consciousness is awake, alert, obeys commands, Oriented to person, place, time, situation, Moves all extremities. Full function. Cardiovascular: Reports chest pain, shortness of breath, Rhythm is regular. Respiratory: Airway is patent Respiratory effort is even, labored, GI: Abdomen is non-distended. Derm: Skin is intact, Skin is dry. Musculoskeletal: Range of motion: intact in all extremities. 19:36 Reassessment: Patient appears in no apparent distress at this time. No changes from ct1 previously documented assessment. Patient and/or family updated on plan of care and expected duration. Pain level reassessed. 21:52 Reassessment: Patient appears in no apparent distress at this time. Pt resting/sleeping.nj1 Vital Signs: 18:02 BP 153 / 97; Pulse 93; Resp 28; Temp 97.8(O); Pulse Ox 100% on R/A; Weight 73.94 kg; cm10 Height 5 ft. 4 in. ; Pain 10/10; 19:36 BP 145 / 83; Pulse 102; Resp 20; Pulse Ox 96% on R/A; Pain 10/10; nj1 21:51 BP 108 / 53; Pulse 78; Resp 19; Pulse Ox 92% on R/A; nj1 04/06 00:00 BP 130 / 82; Pulse 83; Resp 15; Temp 97.8; Pulse Ox 98% on 3 lpm NC; Pain 0/10; bm8 04/05 18:02 Body Mass Index 27.98 (73.94 kg, 162.56 cm) cm10 04/05 18:02 Pain Scale: Adult cm10 19:36 Pain Scale: Adult nj1 04/06 00:00 Pain Scale: Adult bm8 [place] Coma Score: 00:00 Eye Response: spontaneous(4). Motor Response: obeys commands(6). Verbal Response: bm8 oriented(5). Total: 15. ED Course: 04/05 17:47 Patient arrived in ED. mg5 18:01 Dheeraj Thibodeaux MD is Attending Physician. rn 18:04 Triage completed. cm10 18:05 Arm band placed on Patient placed in an exam room, on a stretcher. cm10 18:15 Inserted saline lock: 20 gauge in left wrist, using aseptic technique. iw 18:19 Rebeca Lizama RN is Primary Nurse. iw 19:04 Patient has correct armband on for positive identification. Provided Education on: . iw Client placed on continuous cardiac and pulse oximetry monitoring. NIBP monitoring applied. gambling monitor on. 19:34 Jacob Starr MD is Hospitalizing Provider. rn 22:01 Report given to Piper MACHUCA. [facility] 04/06 00:00 Report received from dulce beck. bm8 00:00 No provider procedures requiring assistance completed. Patient admitted, IV remains in bm8 place. 00:00 Oxygen administration via nasal cannula \\T\\ 3L/min Response to oxygen therapy: symptoms bm8 improved. Administered Medications: 04/05 18:43 Drug: Magnesium Sulfate IVPB 1 grams IVPB once over 1 hrs Route: IVPB; Infused Over: 1 iw hrs; Site: left wrist; 04/06 00:36 Follow up: Response: No adverse reaction; IV Status: Completed infusion; IV Intake: [id number] 04/05 18:43 Drug: MethylPrednisoLONE IVP 125 mg IVP once Route: IVP; Site: left wrist; iw 04/06 00:36 Follow up: Response: No adverse reaction [facility] 04/05 18:43 Drug: Ketorolac IVP 15 mg IVP once Route: IVP; Site: left wrist; 04/06 00:36 Follow up: Response: No adverse reaction [facility] 04/05 18:43 Drug: Levalbuterol Inhalation 1.25 mg Inhalation once Route: Inhalation; 04/06 00:35 Follow up: Response: No adverse reaction [facility] 04/05 18:43 Drug: Levalbuterol Inhalation 1.25 mg Inhalation once Route: Inhalation; 04/06 00:35 Follow up: Response: No adverse reaction bm8 04/05 18:43 Drug: Ipratropium Inhalation Aerosol 0.5 mg Inhalation once Route: Inhalation; iw 04/06 00:35 Follow up: Response: No adverse reaction bm8 04/05 19:24 Drug: morphine IVP or IV 4 mg IVP once over 4 mins Route: IVP; Infused Over: 4 mins; cm10 Site: left wrist; 19:36 Follow up: Response: No adverse reaction; Pain is unchanged, physician notified nj1 Medication: 04/06 00:00 VIS not applicable for this client. bm8 Intake: 00:36 IV: 50ml; Total: 50ml. bm8 Outcome: 04/05 19:34 Decision to Hospitalize by Provider. rn 04/06 00:00 Admitted to ER Hold. Please see [facility] for further documentation. bm8 Condition: stable Instructed on discharge instructions, follow up and referral plans. 16:23 Patient left the ED. kc6 Signatures: Rebeca Lizama RN RN iw Dheeraj Thibodeaux MD MD rn Campbell, Kaitlyn, RN RN kc6 Liv Butler RN RN nj1 Padmini Foster RN RN cm10 [place], [place] 5 Paul Monteiro RN RN bm8 Corrections: (The following items were deleted from the chart) 04/05 18:05 18:02 Chief complaint: Patient states: presented via [facility] for shortness of cm10 breath. Pt states that he was seen here earlier today and left because "no one came to check on me." Pt complaining of left sided chest wall pain. Pt was recently admitted for 2 days. cm10
--- NOTE | 2024-04-05 21:17 | P.HP ---
Certification for Inpatient Patient admitted to: Inpatient With expected LOS: >2 Midnights Practitioner: I am a practitioner with admitting privileges, knowledge of patient current condition, hospital course, and medical plan of care. Services: Services provided to patient in accordance with Admission requirements found in Title 42 Section 412.3 of the Code of Federal Regulations Patient History Date of Service: 04/05/24 Reason for admission: SOB History of Present Illness: 53 yrs old Male with past medical history of COPD, hepatitis B, hypertension, chronic hypoxic respiratory failure on 3 L nasal cannula as needed, and history of alcoholism brought to ER with shortness of breath which has been going on for the last 1 day and has been progressively worsening and was brought to ER. Patient also has subjective fever but no chills. Associated with cough with mucoid expectoration. Denies any nausea vomiting or diarrhea. Patient was recently being discharged from the hospital where he admitted with pneumonia and COPD exacerbation came back to ER with worsening of symptoms. Patient was assessed in the ER and was found to be having pneumonia and hypoxia and was admitted for further management Allergies lisinopril Allergy (Verified 04/26/22 13:11) Shortness of breath BC powder Allergy (Mild, Uncoded 04/26/22 13:10) Hives Home medications list reviewed: Yes Home Medications: predniSONE [Prednisone*] 10 mg PO DAILY #30 tab 04/28/22 Budesonide/Formoterol Fumarate [Symbicort 160-4.5 Mcg Inhaler] 2 puff IH DAILY 06/23/23 Spironolactone [Aldactone*] 25 mg PO DAILY 06/23/23 Tiotropium [place] [Spiriva] 2 puff IH DAILY 06/23/23 Amlodipine [Norvasc*] 10 mg PO DAILY #30 tab 12/02/23 Hydrocodone 10/APAP 325 [[place] 10/325*] 1 tab PO Q6H PRN #30 tab 12/02/23 Multivit,Ther Iron,Ca,FA & Min [Centrum Tablet*] 1 tab PO DAILY #30 tab 12/02/23 Sucralfate [Carafate*] 1 gm PO ACHS #120 tab 12/02/23 - Past Medical/Surgical History Diabetic: No Past Medical History: Reviewed- Non-Contributory -: Hypertension -: COPD on chronic steroids/home O2 -: Tobacco abuse -: Alcohol abuse -: GERD -: Obesity -: BUD Past Surgical History: Reviewed- Non-Contributory -: 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 - Family History Family History: Reviewed- Non-Contributory - Family History Mother -: Diabetes, Cancer Notes: colon cancer Father -: Lung disease Notes: COPD - Social History Smoking Status: Former smoker Alcohol use: Yes CD- Drugs: No Caffeine use: Yes Review of Systems 10-point ROS is otherwise unremarkable Physical Examination - Vital Signs Temperature: 98.4 F Blood Pressure: 136/78 Pulse: 76 Respirations: 18 Pulse Ox (%): 94 - Physical Exam General: Alert, Oriented x3, Cooperative, Mild distress HEENT: Atraumatic, Normocephalic Neck: Supple, 2+ carotid pulse no bruit Respiratory: Diminished, Crackles/rales Cardiovascular: Regular rate/rhythm, Normal S1 S2, No gallops Capillary refill: <2 Seconds Gastrointestinal: Soft and benign, W/out hepatosplenomegaly, No tenderness, No masses Musculoskeletal: No clubbing, No swelling Integumentary: No rashes, No breakdown Neurological: Normal speech, Normal strength at 5/5 x4 extr, Cranial nerves 3-12 intact, Normal reflexes 2+ Lymphatics: No axilla or inguinal lymphadenopathy Assessment and Plan - Problems (Diagnosis) (1) Pneumonia Current Visit: No Status: Acute Plan: Pneumonia Started on Rocephin and Zithromax Change antibiotic as per sensitivity Acute on chronic hypoxic respiratory failure Oxygen supplementation Will try to wean down oxygen requirement COPD exacerbation Continue bronchodilators and steroids Hypertension Antihypertensives titrated Continue home medications and titrate as needed Hyperlipidemia Continue statin GI/DVT prophylaxis Advanced directive full code Qualifiers: Pneumonia type: due to unspecified organism - Advance Directives Does patient have a Living Will: No Does patient have a Durable POA for Healthcare: No - Code Status/Comfort Care Code Status: Full Code Time Spent Managing Pts Care (In Minutes): 48
[2024-04-05] MEDS ORDERED: ACETAMINOPHEN 325 MG TABLET PO PRN (23:19)
[2024-04-05] MEDS ORDERED: ONDANSETRON 4 MG/2 ML VIAL IV PRN (23:19)
[2024-04-06 01:13] VITALS: BMI 27.9
[2024-04-06] MEDS ORDERED: IPRATROPIUM BROM 0.5MG/2.5ML ONE ×3 (01:29→14:43)
[2024-04-06] MEDS ORDERED: ALBUTEROL 2.5 MG/3 ML NEB SOL ONE ×3 (01:29→14:43)
[2024-04-06] MEDS: ALBUTEROL 2.5 MG/3 ML NEB SOL NEB SCH (01:38)
[2024-04-06] MEDS: IPRATROPIUM BROM 0.5MG/2.5ML NEB SCH (01:38)
[2024-04-06 04:29] LABS: Absolute Lymphocytes (CBC) 0.6 K/uL (0.7-4.9); Absolute Monocytes 0.2 K/uL (0.1-1.3); Absolute Neutrophil 7.1 K/uL (1.8-8.0); Basophils % 0.2 % (0-1.3); Eosinophils % 0.1 % (0-4.4); Hematocrit 36.2 % (39.6-49.0); Hemoglobin 12.1 g/dL (13.6-17.9); Lymphocytes % 7.9 % (15.3-44.8); MCH 33.1 pg (27.0-35.0); MCHC 33.5 g/dL (32.0-36.0); MCV 98.9 fL (80-100); MPV 7.2 fL (7.6-11.3); Monocytes % 2.5 % (3.3-12.3); Neutrophils % 89.3 % (41.7-73.7); Platelets 271 thou/uL (152-406); RBC Red Blood Cell Count 3.66 M/uL (4.33-5.43); Red Cell Distribution Width 16.1 % (12.1-15.2)
[2024-04-06 04:54] LABS: ALT/SGPT 17 U/L (16-61); Albumin 3.1 g/dL (3.4-5.0); Alkaline Phosphatase 44 U/L (45-117); Anion Gap 6.8 mEq/L (5.0-15.0); BUN Blood Urea Nitrogen 12 mg/dL (7-18); Bicarbonate 28 mEq/L (21-32); Bilirubin Total 0.4 mg/dL (0.2-1.0); Glomerular Filtration Rate 113 ml/min (=/>90); Glucose Level 141 mg/dL (74-106); Potassium 4.8 mEq/L (3.5-5.1); Protein, Total 6.1 g/dL (6.4-8.2); Sodium Level 136 mEq/L (136-145)
[2024-04-06 04:55] LABS: AST/SGOT < 10 U/L (15-37)
[2024-04-06 05:22] LABS: Band Neutrophils 4 % (0-1); Differential Total Cells Count 100; Lymphocytes 9 % (15-42); Segmented Neutrophils 87 % (40-80)
[2024-04-06 05:23] LABS: Blood Morphology Comment NOT SEEN (NOT SEEN); Monocytes 0 % (0-10); Platelet Estimate ADEQ
[2024-04-06] MEDS: SUCRALFATE 1 GM TABLET PO SCH (07:30)
[2024-04-06] MEDS ORDERED: AZITHROMYCIN 500 MG INJ IVPB ONE (07:41)
[2024-04-06] MEDS ORDERED: AMLODIPINE 10 MG TAB ONE (07:41)
[2024-04-06] MEDS ORDERED: SUCRALFATE 1 GM TABLET ONE ×2 (07:41→14:44)
[2024-04-06] MEDS ORDERED: CEFTRIAXONE 1000 MG/VIAL ONE (07:41)
[2024-04-06] MEDS ORDERED: NA CHLORIDE 0.9% 250 ML ONE (07:42)
[2024-04-06] MEDS ORDERED: ENOXAPARIN 40 MG/0.4 ML SQ ONE (07:42)
[2024-04-06] MEDS ORDERED: NA CHLORIDE 0.9% 50 ML ONE (07:42)
[2024-04-06 08:31] LABS: Specific Gravity 1.019 (1.005-1.030); Sqamous Epithelial None Seen /HPF (None Seen); Urine Bacteria None Seen /HPF (<20); Urine Bilirubin NEGATIVE (Negative); Urine Blood Negative (Negative); Urine Clarity Clear (Clear); Urine Color Light-Yellow (Yellow); Urine Culture Reflex Order NOT NEEDED; Urine Glucose NEGATIVE (Negative); Urine Ketones NEGATIVE (Negative); Urine Microscopic Reflex YN ORDER UMIC; Urine Mucus Slight /HPF (None Seen); Urine Nitrite NEGATIVE (Negative); Urine Protein NEGATIVE (Negative); Urine RBC <5 /HPF (None Seen); Urine Urobilinogen Normal (Normal); Urine WBC <5 /HPF (<5); Urine pH 6.5 (5.0-7.0)
[2024-04-06] MEDS: CEFTRIAXONE 1,000 MG in NA CHLORIDE 0.9% 50 ML IVPB SCH (08:42)
[2024-04-06] MEDS: AMLODIPINE 10 MG TAB PO SCH (09:00)
[2024-04-06] MEDS: ENOXAPARIN 40 MG/0.4 ML SQ SCH (09:00)
[2024-04-06] MEDS: AZITHROMYCIN IV 500 MG in NA CHLORIDE 0.9% 250 ML IVPB SCH (09:00)
[2024-04-06] MEDS: SPIRONOLACTONE 25 MG TABLET PO SCH (09:00)
[2024-04-06] MEDS: TIOTROPIUM 5 SPRAYS/INHALER IH SCH (09:00)
[2024-04-06] MEDS: FORMOTEROL FUMARATE IH SCH (09:00)
[2024-04-06] MEDS: BUDESONIDE IH SCH (09:00)
--- NOTE | 2024-04-06 09:17 | P.PN ---
Subjective Date of Service: 04/06/24 Chief Complaint: SOB Admitted with shortness of breath, noted to have COPD exacerbation, - Physical Exam General: Alert, Oriented x3, Cooperative, Mild distress HEENT: Atraumatic, Normocephalic Neck: Supple, 2+ carotid pulse no bruit Respiratory: Diminished, Crackles/rales Cardiovascular: Regular rate/rhythm, Normal S1 S2, No gallops Capillary refill: <2 Seconds Gastrointestinal: Soft and benign, W/out hepatosplenomegaly, No tenderness, No masses Musculoskeletal: No clubbing, No swelling Integumentary: No rashes, No breakdown Neurological: Normal speech, Normal strength at 5/5 x4 extr, Cranial nerves 3-12 intact, Normal reflexes 2+ Lymphatics: No axilla or inguinal lymphadenopathy Review of Systems HPI Physical Examination - Vital Signs Temperature: 97.7 F Blood Pressure: 162/97 Pulse: 76 Respirations: 20 Pulse Ox (%): 94 Assessment And Plan - Plan Assessment plan Acute hypoxic respiratory failure secondary to pneumonia COPD exacerbation Started on Rocephin and Zithromax Change antibiotic as per sensitivity Oxygen supplementation Will try to wean down oxygen requirement Continue bronchodilators and steroids Hypertension Antihypertensives titrated Continue home medications and titrate as needed Hyperlipidemia Continue statin GI/DVT prophylaxis Advanced directive full code Disposition pending hospital course Discharge Plan: Home - Code Status/Comfort Care Code Status: Full Code Critical Care: No Time Spent Managing PTS Care (In Minutes): 55
[2024-04-06] MEDS: predniSONE 20 MG TAB PO SCH (14:00)
[2024-04-06] MEDS ORDERED: predniSONE 20 MG TAB ONE (14:43)
[2024-04-06] MEDS: HYDROCODONE/APAP 10/325 TAB PO PRN (17:20)
[2024-04-06] MEDS: NICOTINE 14 MG/PAT TD ONE (22:05)
[2024-04-06] MEDS: LORAZEPAM 0.5 MG TABLET PO ONE (22:07)
--- NOTE | 2024-04-07 06:51 | P.PN ---
Subjective Date of Service: 04/07/24 Chief Complaint: SOB Admitted with shortness of breath, noted to have COPD exacerbation, - Physical Exam General: Alert, Oriented x3, Cooperative, Mild distress HEENT: Atraumatic, Normocephalic Neck: Supple, 2+ carotid pulse no bruit Respiratory: Diminished, Crackles/rales Cardiovascular: Regular rate/rhythm, Normal S1 S2, No gallops Capillary refill: <2 Seconds Gastrointestinal: Soft and benign, W/out hepatosplenomegaly, No tenderness, No masses Musculoskeletal: No clubbing, No swelling Integumentary: No rashes, No breakdown Neurological: Normal speech, Normal strength at 5/5 x4 extr, Cranial nerves 3-12 intact, Normal reflexes 2+ Lymphatics: No axilla or inguinal lymphadenopathy Review of Systems 10-point ROS is otherwise unremarkable Physical Examination - Vital Signs Temperature: 97.6 F Blood Pressure: 149/71 Pulse: 67 Respirations: 17 Pulse Ox (%): 94 Assessment And Plan - Plan Assessment plan Acute hypoxic respiratory failure secondary to pneumonia COPD exacerbation Started on Rocephin and Zithromax Change antibiotic as per sensitivity Oxygen supplementation Will try to wean down oxygen requirement Continue bronchodilators and steroids Hypertension Antihypertensives titrated Continue home medications and titrate as needed Hyperlipidemia Continue statin GI/DVT prophylaxis Advanced directive full code Disposition pending hospital course Discharge Plan: Home Critical Care: No Time Spent Managing PTS Care (In Minutes): 35
[2024-04-07] MEDS: NICOTINE 14 MG/PAT TD SCH (08:42)
[2024-04-07 09:13] VITALS: O2SAT 96
--- NOTE | 2024-04-07 09:30 | P.DS ---
Admission Date: 04/05/24 Discharge Date: 04/07/24 Disposition: ROUTINE DISCHARGE Discharge Condition: GOOD Reason for Admission: SOB Brief History of Present Illness: 53 yrs old Male with past medical history of COPD, hepatitis B, hypertension, chronic hypoxic respiratory failure on 3 L nasal cannula as needed, and history of alcoholism brought to ER with shortness of breath which has been going on for the last 1 day and has been progressively worsening and was brought to ER. Patient also has subjective fever but no chills. Associated with cough with mucoid expectoration. Denies any nausea vomiting or diarrhea. Patient was recently being discharged from the hospital where he admitted with pneumonia and COPD exacerbation came back to ER with worsening of symptoms. Patient was assessed in the ER and was found to be having pneumonia and hypoxia and was admitted for further management - Physical Exam General: Alert, Oriented x3, Cooperative HEENT: Atraumatic, Normocephalic Neck: Supple, 2+ carotid pulse no bruit Respiratory: Diminished, inspiratory wheeze Cardiovascular: Regular rate/rhythm, Normal S1 S2, No gallops Capillary refill: <2 Seconds Gastrointestinal: Soft and benign, W/out hepatosplenomegaly, No tenderness, No m asses Musculoskeletal: No clubbing, No swelling Integumentary: No rashes, No breakdown Neurological: Normal speech, Normal strength at 5/5 x4 extr, Cranial nerves 3-12 intact, Normal reflexes 2+ Lymphatics: No axilla or inguinal lymphadenopathy Hospital Course: Patient tolerating diet, stable for discharge to home with follow-up appointment with primary care physician. Follow up with Pulmonary after discharge. PROBLEM: Acute hypoxic respiratory failure secondary to pneumonia COPD exacerbation refill inhalers, prednisone, cefdinir Rad/Lab/Micro: CT chest IMPRESSION: Negative for pulmonary embolism. Similar partial collapse of the right middle lobe compared with 02/15/2024 but with increased subsegmental atelectasis at the right lower lobe. Overall, the atelectasis is mild. If further evaluation is desired, bronchoscopy could be considered. Continue home medicines as previously prescribed GOAL: Clear understanding of disease process INSTRUCTIONS: Physician Discharge Instructions: -Follow-up with PCP in 1 to 2 weeks -Please call Dr. Martin at [phone] if any questions regarding hospital stay -Please call nursing station at [phone] if any nursing or medication questions -Return to the emergency room if symptoms worsen Diet: ADA, low sodium Activity: Fall precautions Vital Signs/Physical Exam: Temp Pulse Resp BP Pulse Ox 97.6 F 87 17 185/97 H 94 04/07/24 06:50 04/07/24 08:41 04/07/24 08:44 04/07/24 08:41 04/07/24 08:44 Laboratory Data at Discharge: WBC 8.00 thou/uL (4.3-10.9) 04/06/24 04:02 Hgb 12.1 g/dL (13.6-17.9) L 04/06/24 04:02 Hct 36.2 % (39.6-49.0) L 04/06/24 04:02 Plt Count 271 thou/uL (152-406) 04/06/24 04:02 Sodium 136 mEq/L (136-145) 04/06/24 04:02 Potassium 4.8 mEq/L (3.5-5.1) D 04/06/24 04:02 BUN 12 mg/dL (7-18) 04/06/24 04:02 Creatinine 0.61 mg/dL (0.70-1.30) L 04/06/24 04:02 Glucose 141 mg/dL (74-106) H 04/06/24 04:02 Total Bilirubin 0.4 mg/dL (0.2-1.0) 04/06/24 04:02 AST < 10 U/L (15-37) L 04/06/24 04:02 ALT 17 U/L (16-61) 04/06/24 04:02 Alkaline Phosphatase 44 U/L (45-117) L 04/06/24 04:02 Home Medications: Budesonide/Formoterol Fumarate [Symbicort 160-4.5 Mcg Inhaler] 2 puff IH DAILY 06/23/23 Spironolactone [Aldactone*] 25 mg PO DAILY 06/23/23 Amlodipine [Norvasc*] 10 mg PO DAILY #30 tab 12/02/23 Hydrocodone 10/APAP 325 [[place] 10/325*] 1 tab PO Q6H PRN #30 tab 12/02/23 Multivit,Ther Iron,Ca,FA & Min [Centrum Tablet*] 1 tab PO DAILY #30 tab 12/02/23 Sucralfate [Carafate*] 1 gm PO ACHS #120 tab 12/02/23 Albuterol Neb [Proventil 0.083% Neb Soln] 2.5 mg NEB [id number] PRN 30 Days #1 box 04/07/24 Amlodipine [Norvasc*] 10 mg PO DAILY tab 04/07/24 Budesonide/Formoterol Fumarate [Symbicort 160-4.5 Mcg Inhaler] 2 puff IH DAILY 30 Days #1 inh 04/07/24 Cefdinir [Cefdinir*] 300 mg PO BID 7 Days #14 cap 04/07/24 Ipratropium Neb [Atrovent*] 0.5 mg NEB [id number] PRN 30 Days #1 box 04/07/24 LORazepam [Ativan] 0.5 mg PO BEDTIME PRN #20 tab 04/07/24 Nebulizer Accessories [A.i.r.s. Nebulizer] 1 each MC DAILY PRN 30 Days #1 kit 04/07/24 Nebulizer Accessories [Jenera Choice Neb Kit-Adult] 1 each MC DAILY PRN 30 Days #1 ea 04/07/24 Sucralfate [Carafate*] 1 gm PO ACHS tab 04/07/24 Tiotropium [place] [Spiriva] 2 puff IH DAILY 30 Days #1 inh 04/07/24 predniSONE [Prednisone*] 10 mg PO DAILY 30 Days #30 tab 04/07/24 predniSONE [Prednisone*] 20 mg PO TID 30 Days #30 tab 04/07/24 New Medications: Nebulizer Accessories [A.i.r.s. Nebulizer] 1 each MC DAILY PRN 30 Days #1 kit PRN Reason: Shortness Of Breath LORazepam [Ativan] 0.5 mg PO BEDTIME PRN #20 tab PRN Reason: Insomnia Ipratropium Neb [Atrovent*] 0.5 mg NEB [id number] PRN 30 Days #1 box PRN Reason: Shortness Of Breath Budesonide/Formoterol Fumarate [Symbicort 160-4.5 Mcg Inhaler] 2 puff IH DAILY 30 Days #1 inh Cefdinir [Cefdinir*] 300 mg PO BID 7 Days #14 cap Nebulizer Accessories [Jenera Choice Neb Kit-Adult] 1 each MC DAILY PRN 30 Days #1 ea PRN Reason: Shortness Of Breath predniSONE [Prednisone*] 20 mg PO TID 30 Days #30 tab predniSONE [Prednisone*] 10 mg PO DAILY 30 Days #30 tab Albuterol Neb [Proventil 0.083% Neb Soln] 2.5 mg NEB [id number] PRN 30 Days #1 box PRN Reason: Shortness Of Breath Tiotropium [place] [Spiriva] 2 puff IH DAILY 30 Days #1 inh Physician Discharge Instructions: Patient tolerating diet, stable for discharge to home with follow-up appointment with primary care physician. Follow up with Pulmonary after discharge. PROBLEM: Acute hypoxic respiratory failure secondary to pneumonia COPD exacerbation Rad/Lab/Micro: CT chest IMPRESSION: Negative for pulmonary embolism. Similar partial collapse of the right middle lobe compared with 02/15/2024 but with increased subsegmental atelectasis at the right lower lobe. Overall, the atelectasis is mild. If further evaluation is desired, bronchoscopy could be considered. Continue home medicines as previously prescribed GOAL: Clear understanding of disease process INSTRUCTIONS: Physician Discharge Instructions: -Follow-up with PCP in 1 to 2 weeks -Please call Dr. Martin at [phone] if any questions regarding hospital stay -Please call nursing station at [phone] if any nursing or medication questions -Return to the emergency room if symptoms worsen Diet: ADA, low sodium Activity: Fall precautions Diet: AHA Activity: Fall precautions Followup: Mayur Martinez MD [ACTIVE - CAN ADMIT] - 1-2 Weeks NONE,NONE [Primary Care Provider] - Time spent managing pt's care (in minutes): 55
[2024-04-07 10:06] VITALS: BP 162/97; TEMP 97.7
[2024-04-07 10:26] LABS: Magnesium 2.3 mg/dL (1.6-2.4); Phosphorus 3.3 mg/dL (2.5-4.9); Potassium 3.5 mEq/L (3.5-5.1)
[2024-04-07] MEDS: chlordiazePOXIDE HCl 25 MG CAP PO ONE (10:50)
[2024-04-07] MEDS ORDERED: chlordiazePOXIDE HCl 5 MG CAP PO SCH (14:00)
== END 2024-04-07 11:46 | disposition home or self-care (01) | DRG 193 ==
LOC: ER 17:43 → ERHOLD 23:19 → 2ND 04-06 15:41
PROVIDERS: ADMIT Family Medicine; ATTEND Hospitalist
DX: J18.9 Pneumonia, unspecified organism (principal); J96.21 Acute and chronic respiratory failure with hypoxia; J44.1 Chronic obstructive pulmonary disease with (acute) exacerbation; J44.0 Chronic obstructive pulmonary disease with (acute) lower respiratory infection; I10 Essential (primary) hypertension; E78.5 Hyperlipidemia, unspecified; K21.9 Gastro-esophageal reflux disease without esophagitis; M81.0 Age-related osteoporosis without current pathological fracture; F17.210 Nicotine dependence, cigarettes, uncomplicated; Z99.81 Dependence on supplemental oxygen; Z79.52 Long term (current) use of systemic steroids; Z89.022 Acquired absence of left finger(s); Z79.899 Other long term (current) drug therapy
CPT/HCPCS: 36415; 80053; 81001; 82947; 83735; 84100; 84132; 85025; 94640; 94760; 96365; 96366; 96375; 99285; J0696; J1650; J2919; J3475; J7050; J7512; J7613; J7614; J7644

== ENCOUNTER 2024-04-10 20:10 | Emergency (ER) | payer OTHER ==
--- OUTSIDE RECORDS SUMMARY | 2024-04-10 20:16 | XMS REPORT | Continuity of Care Document ---
Author Name Unknown Address [address] [facility] [address] [place] [address] [facility] Address [address] [facility] 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 Role Phone ADRIANNA LOPEZ Primary Care Physician Unavailab MINNA Prather Attending Clinician Unavailab WENDY High Attending Clinician Unava ilDARIEN Martinez Attending Clinician Unavailable PEG CAMP Attending Clinician Unavailable Peg Camp NP Attending Clinician [phone] DEMETRIA DAVENPORT Attending Clinician Unav ailDemetria Simpson MD Attending Clinician + Christina Victoria Attending Clinician [phone] JAC NAVARRO Attending Clinician Unavailable Jac Navarro MD Attending Clinician [phone] TYLER ROWE Attending Clinician Unavailab MELINDA Boothe Attending Clinician Unavailable Melinda Maciel DO Attending Clinician [phone] CHRISTY HOLLIDAY Attending Clinician Unavailable Christy Holliday MD Attending Clinician MARIA ELENA CHAN MEDICAL Attending George akins Unavailable DENISE SUNG Attending Clinician Unavailable KARLEY ADAMS Attending Clinician Unavailable JAC NAVARRO Admitting Clinician Unavailable MELINDA MACIEL Admitting Clinician Unavailable CHRISTY OHLLIDAY Admitting Clinician Unavailable Payers Payer Name Policy Type Policy Number Effective Date Expirati on Date Source [facility] VINOD LEE COPAY FOCUS 9 [id number] 2024 00:00:00 [facility] [id number] 2023 00:00:00 2024 00:00:00 [employer] [id number] 2023 00:00:00 [employer] 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 94 ON 9 [id number] 2023 00:00:00 Problems Condition Name Condition Details Condition Category Status Onset Date Resolution Date Last Treatment Date Treating Clinician Comments Source Acute exacerbati on of chronic obstructiv e pulmonary disease (COPD) Acute exacerbati on of chronic obstructiv e pulmonary disease (COPD) Disease Active 03-24 00:00: 00 [facility] Obesity (BMI 30-39.9) Obesity (BMI 30-39.9) Disease Active 03-24 00:00: 00 [facility] Allergies, Adverse Reactions, Alerts Allergy Name Allergy Type Status Severity Reaction(s) Onset Date Inactive Date Treating Clinician Comments Source Lisinopr il Propensi ty to adverse reaction s Active Anaphylaxis 03-24 00:00: 00 [facility] LISINOPR IL DRUG INGREDI Active Anaphylaxis 03-24 00:00: 00 [facility] Social History Social Habit Start Date Stop Date Quantity Comments Source History of tobacco use Smokes tobacco daily [facility] function 2024-02-08 00:00:00 2024-02-08 [...] dose, On Thu02/17/24 at 2215, Routine [facility] methylpredn isolone sod succ (SOLU-MEDRO L) injection 125 mg 02-17 03:00: 00 02-17 14:59 :00 Yes 125mg 125 mg, Intravenou s, ONCE, 1 dose, On Thu02/17/24 at 2200, 2 mL [facility] ipratropium -albuteroL (DUONEB) 0.5 mg-3 mg(2.5 mg base)/3 mL nebulizer solution 6 mL 02-17 03:00: 00 02-17 14:59 :00 Yes 6mL 6 mL, Inhalation , ONCE NOW, 1 dose, On Thu02/17/24 at 2200, Routine [facility] NaCl 0.9% (NS) bolus infusion 1,000 mL 02-17 03:00: 00 02-17 14:59 :00 Yes 1000mL at 999 mL/hr, 1,000 mL, IV Infusion, ONCE, 1 dose, On Thu02/17/24 at 2200, LAURYN [facility] triamterene -hydrochlor othiazide 37.5-25 mg per capsule 02-16 20:52: 37 02-16 00:00 :00 No 1{capsu le} Take 1 capsule by mouth every morning. [facility] albuterol 5 mg/mL nebulizer solution 02-16 20:51: 42 02-16 00:00 :00 No 2.5mg Inhale 2.5 mg every 6 (six) hours as needed for Wheezing or Shortness of Breath. [facility] ketorolac (TORADOL) injection 15 mg 02-08 03:00: 00 02-08 02:21 :00 No 15mg 15 mg, Slow IV Push, ONCE, 1 dose, On Thu02/08/24 at 2200, Routine [facility] iopamidol (ISOVUE 370-500 mL) injection 100 mL 02-07 22:30: 00 02-07 22:30 :00 Yes [id number] 100mL 100 mL, Intravenou s, ONCE, 1 dose, On Thu02/08/24 at 1730, Routine [facility] ipratropium -albuteroL (DUONEB) 0.5 mg-3 mg(2.5 mg base)/3 mL nebulizer solution 3 mL 02-07 21:15: 00 02-07 20:45 :00 No 3mL 3 mL, Inhalation , ONCE, 1 dose, On Thu02/08/24 at 1615, Routine [facility] morpHINE (2 mg/mL) injection 4 mg 02-07 21:15: 00 02-07 20:27 :00 No 4mg 4 mg, Slow IV Push, ONCE, 1 dose, On Thu02/08/24 at 1615, STAT [facility] ondansetron (ZOFRAN (PF)) injection 4 mg 02-07 21:15: 00 02-07 20:22 :00 No 4mg 4 mg, Slow IV Push, ONCE, 1 dose, On Thu02/08/24 at 1615, [facility] magnesium sulfate in water 2 gram/50 mL (4 %) infusion 2 g 02-07 21:00: 00 02-07 21:30 :00 No 2g 2 g, IV Piggyback, Administer over 60 Minutes, ONCE, 1 dose, On Thu02/08/24 at 1600, Routine [facility] ipratropium -albuteroL (DUONEB) 0.5 mg-3 mg(2.5 mg base)/3 mL nebulizer solution 3 mL 02-07 20:30: 00 02-07 19:31 :00 No 3mL 3 mL, Inhalation , ONCE, 1 dose, On Thu02/08/24 at 1530, [facility] HYDROcodone -acetaminop hen (NORCO) 10-325 mg tablet 1 tablet 01-13 13:15: 00 01-13 12:15 :00 No 1{tbl} 1 tablet, Oral, ONCE, 1 dose, On Thu01/14/24 at 0715, [facility] ipratropium -albuteroL (DUONEB) 0.5 mg-3 mg(2.5 mg base)/3 mL nebulizer solution 3 mL 01-13 13:00: 00 01-13 11:53 :00 No 3mL 3 mL, Inhalation , ONCE NOW, 1 dose, On Thu01/14/24 at 0700, [facility] ondansetron (ZOFRAN (PF)) injection 4 mg 01-13 11:30: 00 01-13 11:37 :00 No 4mg 4 mg, Slow IV Push, ONCE, 1 dose, On Thu01/14/24 at 0530, [facility] morpHINE (4 mg/mL) injection 4 mg 01-13 11:30: 00 01-13 11:37 :00 No 4mg 4 mg, Slow IV Push, ONCE, 1 dose, On Thu01/14/24 at 0530, STAT [facility] azithromyci n (ZITHROMAX Z-PORTER) 250 mg tablet 01-13 00:00: 00 02-16 00:00 :00 No [id number] Take 500 mg on day 1 then 250 mg on days 2-5 [facility] predniSONE 20 mg tablet 01-13 00:00: 00 02-16 00:00 :00 No [id number] Take 1 po tid x 2 days, then take 1 po bid x 3 days, then take 1 po daily x 3 days. [facility] acetaminoph en-codeine 300-30 mg tablet 01-13 00:00: 00 01-21 04:59 :00 Yes [id number] 1{tbl} Take 1 tablet by mouth every 6 (six) hours as needed for Pain (scale 7-10) (severe cough) for up to 7 days. Indication s: acute pain, severe cough [facility] clonazePAM 1 mg tablet 12-26 00:00: 00 02-16 00:00 :00 No 1mg Take 1 tablet by mouth at bedtime as needed for Other (anxiety). [facility] KCL (KLOR-CON M20) tablet 40 mEq 12-23 05:00: 00 12-23 05:07 :00 No 40meq 40 mEq, Oral, ONCE, 1 dose, On Thu12/22/23 at 2300, [facility] NaCl 0.9% (NS) bolus infusion 1,000 mL 12-23 05:00: 00 12-23 05:09 :00 No 1000mL at 999 mL/hr, 1,000 mL, IV Infusion, ONCE, 1 dose, On Thu12/22/23 at 2300, [facility] ondansetron (ZOFRAN (PF)) injection 4 mg 12-23 04:30: 00 12-23 04:24 :00 No 4mg 4 mg, Slow IV Push, ONCE, 1 dose, On Thu12/22/23 at 2230, [facility] maalox:diph enhydrAMINE :lidocaine 2 % viscous 1:1:1 ([facility]) oral suspension 15 mL 12-23 04:15: 00 12-23 04:17 :00 No 15mL 15 mL, Oral, ONCE, 1 dose, On Thu12/22/23 at 2215, Routine [facility] famotidine (PEPCID (PF)) injection 20 mg 12-23 04:15: 00 12-23 04:15 :00 No 20mg 20 mg, Slow IV Push, ONCE, 1 dose, On Thu12/22/23 at 2215, LAURYN [facility] HYDROcodone -acetaminop hen (NORCO) 10-325 mg tablet 1 tablet 12-22 04:30: 00 12-22 16:29 :00 No 1{tbl} 1 tablet, Oral, ONCE, 1 dose, On Thu12/21/23 at 2230, Routine [facility] pantoprazol e (PROTONIX) 80 mg in NaCl 0.9% (NS) 20 mL syringe 12-22 04:15: 00 12-22 16:14 :00 No 80mg 80 mg, IV Push, ONCE, 1 dose, On Thu12/21/23 at 2215, Administer over 2 Minutes, 20 mL [facility] iopamidol (ISOVUE 370-500 mL) injection 100 mL 12-22 03:30: 00 12-22 03:30 :00 No [id number] 100mL 100 mL, Intravenou s, ONCE, 1 dose, On Thu12/21/23 at 2130, Routine [facility] morpHINE (4 mg/mL) injection 4 mg 12-22 03:30: 00 12-22 02:16 :00 No 4mg 4 mg, Slow IV Push, ONCE, 1 dose, On Thu12/21/23 at 2130, Routine [facility] ondansetron (ZOFRAN (PF)) injection 4 mg 12-22 02:45: 00 12-22 02:02 :00 No 4mg 4 mg, Slow IV Push, ONCE, 1 dose, On Thu12/21/23 at 2045, Routine [facility] hydrocortis one 25 mg suppository 12-22 00:00: 00 Yes [id number] 25mg Insert 1 Suppositor y into rectum 2 (two) times daily as needed for Rectal itching/pa in. [facility] ondansetron 4 mg disintegrat ing tablet 12-22 00:00: 00 02-16 00:00 :00 No [id number] 4mg Take 1 tablet by mouth every 8 (eight) hours as needed for Nausea and Vomiting (N/V). [facility] amoxicillin -clavulanat e 875-125 mg per tablet 12-22 00:00: 00 01-02 05:59 :00 No [id number] 1{tbl} Take 1 tablet by mouth every 12 (twelve) hours for 10 days. [facility] methylpredn isolone sod succ (SOLU-MEDRO L) injection 125 mg 2022-11 08:45: 00 10-27 20:44 :00 No 125mg 125 mg, Slow IV Push, ONCE, 1 dose, On Thu10/27/23 at 0245, STAT [facility] ipratropium -albuteroL (DUONEB) 0.5 mg-3 mg(2.5 mg base)/3 mL nebulizer solution 3 mL 2022-11 08:45: 00 10-27 20:44 :00 No 3mL 3 mL, Inhalation , ONCE NOW, 1 dose, On Thu10/27/23 at 0245, LAURYN [facility] diazePAM (VALIUM) tablet 10 mg 2022-11 07:45: 00 10-27 19:44 :00 No 10mg 10 mg, Oral, ONCE, 1 dose, On Thu10/27/23 at 0145, LAURYN [facility] levoFLOXaci n (LEVAQUIN) tablet 500 mg 2022-11 07:45: 00 10-27 19:44 :00 No 500mg 500 mg, Oral, ONCE, 1 dose, On Thu10/27/23 at 0145, LAURYN
Re ason for Anti-Infec tive: Empiric Non-Surgic al Prophylaxi s
Durat ion of therapy: Once (ED) [facility] iopamidol (ISOVUE 370-500 mL) injection 70 mL 2021-11 18:30: 00 10-14 18:30 :00 No [id number] 70mL 70 mL, Intravenou s, ONCE, 1 dose, On Thu10/14/22 at 1230, Routine [facility] methylpredn isolone sod succ (SOLU-MEDRO L) injection 125 mg 2021-11 18:00: 00 Yes 125mg 125 mg, Intravenou s, Q6H, First dose on Thu10/14/22 at 1200, Until Discontinu ed, Routine [facility] furosemide (LASIX) injection 40 mg 2021-11 17:45: 00 10-14 16:39 :00 No 40mg 40 mg, IV Push, ONCE, 1 dose, On Thu10/14/22 at 1145, LAURYN [facility] ipratropium -albuteroL (DUONEB) 0.5 mg-3 mg(2.5 mg base)/3 mL nebulizer solution 3 mL 2021-11 17:30: 00 10-14 16:41 :00 No 3mL 3 mL, Inhalation , ONCE, 1 dose, On Thu10/14/22 at 1130, Routine [facility] FENTanyl PF (SUBLIMAZE (PF)) injection 50 mcg 2021-11 16:45: 00 10-14 16:39 :00 No 50ug 50 mcg, Slow IV Push, ONCE, 1 dose, On Thu10/14/22 at 1045, Routine [facility] levoFLOXaci n 750 mg tablet 2021-11 00:00: 00 02-16 00:00 :00 No [id number] 750mg Take 1 tablet by mouth every 24 (twenty-fo ur) hours. [facility] HYDROcodone -acetaminop hen (NORCO) 10-325 mg tablet 1 tablet 03-12 12:15: 00 03-12 11:21 :00 No 1{tbl} 1 tablet, Oral, ONCE, 1 dose, On Thu03/12/22 at 0715, Routine [facility] HYDROcodone -acetaminop hen 10-325 mg tablet 03-12 00:00: 00 03-20 04:59 :00 No [id number] 1{tbl} Take 1 tablet by mouth every 6 (six) hours as needed for Pain (scale 7-10) for up to 7 days. Indication s: acute pain [facility] ipratropium -albuteroL (DUONEB) 0.5 mg-3 mg(2.5 mg base)/3 mL nebulizer solution 3 mL 02-20 13:00: 00 Yes 3mL 3 mL, Inhalation , QID, First dose on Thu02/20/22 at 0800, Until Discontinu ed, Routine [facility] methylPREDN ISolone sod succ (SOLU-MEDRO L (PF)) injection 40 mg 02-20 11:45: 00 02-20 10:43 :00 No 40mg 40 mg, Intravenou s, ONCE, 1 dose, On Thu02/20/22 at 0645, STAT [facility] foLIC acid (FOLATE) tablet 1 mg 02-20 11:45: 00 02-20 10:41 :00 No 1mg 1 mg, Oral, ONCE, 1 dose, On Thu02/20/22 at 0645, LAURYN [facility] thiamine (VITAMIN B1) injection 100 mg 02-20 11:45: 00 02-20 10:43 :00 No 100mg 100 mg, Intravenou s, ONCE, 1 dose, On Thu02/20/22 at 0645, LAURYN [facility] LORazepam (ATIVAN) injection 2 mg 02-20 11:45: 00 02-20 10:42 :00 No 2mg 2 mg, Slow IV Push, ONCE, 1 dose, On Kym 02/20/22 at 0645, STAT [facility] ipratropium -albuteroL (DUONEB) 0.5 mg-3 mg(2.5 mg base)/3 mL nebulizer solution 3 mL 02-20 10:30: 00 02-20 09:34 :00 No 3mL 3 mL, Inhalation , ONCE, 1 dose, On Kym 02/20/22 at 0530, Routine [facility] albuterol 90 mcg/actuati on inhaler 02-20 00:00: 00 Yes [id number] 2{puff} Inhale 2 Puffs every 4 (four) hours as needed for Wheezing or Shortness of Breath. [facility] triamterene -hydrochlor othiazid 37.5-25 mg tablet 02-20 00:00: 00 Yes [id number] 1{tbl} Take 1 tablet by mouth daily. [facility] chlordiazeP OXIDE 25 mg capsule 02-20 00:00: 00 Yes [id number] 25mg Take 1 capsule by mouth every 6 (six) hours as needed for Anxiety, Agitation, Heart Rate => 100 or Detox. [facility] predniSONE 10 mg tablet 02-20 00:00: 00 02-16 00:00 :00 No [id number] TAKE ONE TABLET BY MOUTH DAILY [facility] albuterol 2.5 mg /3 mL (0.083 %) nebulizer solution 02-20 00:00: 00 02-16 00:00 :00 No [id number] 2.5mg Inhale 3 mL every 4 (four) hours. May also nebulize one extra every 6 hours. [facility] budesonide- formoteroL 160-4.5 mcg/actuati on inhaler 02-20 00:00: 00 02-16 00:00 :00 No [id number] 2{puff} Inhale 2 Puffs 2 (two) times daily. [facility] albuterol 5 mg/mL nebulizer solution 07-16 14:02: 20 Yes 2.5mg Inhale 2.5 mg every 6 (six) hours as needed for Wheezing or Shortness of Breath. [facility] budesonide- formoterol 160-4.5 mcg/actuati on inhaler 07-16 00:00: 00 Yes 2{puff} Inhale 2 Puffs 2 (two) times daily. [facility] albuterol 2.5 mg /3 mL (0.083 %) nebulizer solution 07-16 00:00: 00 Yes 2.5mg Inhale 3 mL every 4 (four) hours as needed for Wheezing or Shortness of Breath. [facility] triamterene -hydrochlor othiazide 37.5-25 mg per capsule 03-26 16:32: 14 Yes 1{capsu le} Take 1 capsule by mouth every morning. [facility] amLODIPine 10 mg tablet 03-26 16:32: 14 Yes 10mg Take 10 mg by mouth at bedtime. [facility] gabapentin 100 mg capsule 03-26 16:32: 14 Yes 100mg Take 100 mg by mouth 2 (two) times daily as needed (MSK pain). [facility] foLIC acid 1 mg tablet 03-26 16:32: 14 Yes 1mg Take 1 mg by mouth daily. [facility] budesonide- formoterol 160-4.5 mcg/actuati on inhaler 03-26 00:00: 00 02-16 00:00 :00 No 2{puff} Inhale 2 Puffs 2 (two) times daily. [facility] Immunizations Ordered Immunization Name Filled [...] [place] Pneumococcal Polysaccharide, PPSV23 (PNEUMOVAX) Unknown Completed [facility] Influenza Virus Vaccine Quad IM 3+ YRS Unknown Completed [facility] [place] SARS-COV-2 COVID-19 PFIZER VACCINE Unknown Completed [facility] SARS-COV-2 COVID-19 PFIZER VACCINE Unknown Completed [facility] Pneumococcal Polysaccharide, PPSV23 (PNEUMOVAX) Unknown [facility] Influenza Virus Vaccine Quad IM 3+ YRS Unknown Completed [facility] SARS-COV-2 COVID-19 PFIZER VACCINE Unknown Completed [facility] SARS-COV-2 COVID-19 PFIZER VACCINE Unknown Completed [facility] Pneumococcal Polysaccharide, PPSV23 (PNEUMOVAX) Unknown [facility] Influenza Virus Vaccine Quad IM 3+ YRS Unknown Completed [facility] SARS-COV-2 COVID-19 PFIZER VACCINE Unknown Completed [facility] SARS-COV-2 COVID-19 PFIZER VACCINE Unknown Completed [facility] Pneumococcal Polysaccharide, PPSV23 (PNEUMOVAX) Unknown [facility] Influenza Virus Vaccine Quad IM 3+ YRS Unknown Completed [facility] SARS-COV-2 COVID-19 PFIZER VACCINE Unknown Completed [facility] SARS-COV-2 COVID-19 PFIZER VACCINE Unknown Completed [facility] Pneumococcal Polysaccharide, PPSV23 (PNEUMOVAX) Unknown Completed [facility] Influenza Virus Vaccine Quad IM 3+ YRS Unknown Completed [facility] [place] SARS-COV-2 COVID-19 PFIZER VACCINE Unknown Completed [facility] SARS-COV-2 COVID-19 PFIZER VACCINE Unknown Completed [facility] Pneumococcal Polysaccharide, PPSV23 (PNEUMOVAX) Unknown Completed [facility] Influenza Virus Vaccine Quad IM 3+ YRS Unknown Completed [facility] [place] SARS-COV-2 COVID-19 PFIZER VACCINE Unknown Completed [facility] SARS-COV-2 COVID-19 PFIZER VACCINE Unknown Completed [facility] Pneumococcal Polysaccharide, PPSV23 (PNEUMOVAX) Unknown Completed [facility] Influenza Virus Vaccine Quad IM 3+ YRS Unknown Completed [facility] [place] SARS-COV-2 COVID-19 PFIZER VACCINE Unknown Completed [facility] [place] SARS-COV-2 COVID-19 PFIZER VACCINE Unknown Completed [facility] Pneumococcal Polysaccharide, PPSV23 (PNEUMOVAX) Unknown Completed [facility] Influenza Virus Vaccine Quad IM 3+ YRS Unknown Completed [facility] SARS-COV-2 COVID-19 PFIZER VACCINE Unknown Completed [facility] SARS-COV-2 COVID-19 PFIZER VACCINE Unknown Completed [facility] Vital Signs Vital Name Observation Time Observation Value Comments S ource Systolic blood pressure 2024-02-18 01:57:00 134 mm[Hg] [facility] Diastolic blood pressure 2024-02-18 01:57:00 94 mm[Hg] [facility] Body height 2024-02-18 01:57:00 162.6 cm [facility] Body weight 2024-02-18 01:57:00 79.379 kg [facility] BMI 2024-02-18 01:57:00 30.04 kg/m2 [facility] Heart rate 2024-02-18 01:53:00 110 /min [facility] Body temperature 2024-02-18 01:53:00 36.61 Debbie [facility] Respiratory rate 2024-02-18 01:53:00 24 /min [facility] Oxygen saturation in Arterial blood by Pulse oximetry 2024-02-18 01:53:00 93 /min [facility] Systolic blood pressure 2024-02-09 01:54:05 150 mm[Hg] [facility] Diastolic blood pressure 2024-02-09 01:54:05 91 mm[Hg] [facility] Heart rate 2024-02-09 01:54:05 87 /min [facility] Respiratory rate 2024-02-09 01:54:05 17 /min [facility] Oxygen saturation in Arterial blood by Pulse oximetry 2024-02-09 01:54:05 93 /min [facility] Body temperature 2024-02-09 01:45:00 36.67 Debbie [facility] Body height 2024-02-09 01:45:00 162.6 cm [facility] Body weight 2024-02-09 01:45:00 81.194 kg [facility] BMI 2024-02-09 01:45:00 30.73 kg/m2 [facility] Respiratory rate 2024-02-08 21:00:00 18 /min [facility] Oxygen saturation in Arterial blood by Pulse oximetry 2024-02-08 21:00:00 96 /min [facility] Systolic blood pressure 2024-02-08 20:27:00 164 mm[Hg] [facility] Diastolic blood pressure 2024-02-08 20:27:00 90 mm[Hg] [facility] Heart rate 2024-02-08 20:27:00 83 /min [facility] Body temperature 2024-02-08 19:12:00 36.83 Debbie [facility] Body height 2024-02-08 19:12:00 162.6 cm [facility] Body weight 2024-02-08 19:12:00 81.194 kg [facility] BMI 2024-02-08 19:12:00 30.73 kg/m2 [facility] Heart rate 2024-01-14 12:15:00 98 /min [facility] Body temperature 2024-01-14 12:15:00 36.56 Debbie [facility] Respiratory rate 2024-01-14 12:15:00 14 /min [facility] Oxygen saturation in Arterial blood by Pulse oximetry 2024-01-14 12:15:00 95 /min [facility] Systolic blood pressure 2024-01-14 12:00:00 140 mm[Hg] [facility] Diastolic blood pressure 2024-01-14 12:00:00 90 mm[Hg] [facility] Body height 2024-01-14 10:51:00 162.6 cm [facility] Body weight 2024-01-14 10:51:00 81.194 kg [facility] BMI 2024-01-14 10:51:00 30.73 kg/m2 [facility] Systolic blood pressure 2023-12-23 05:02:00 133 mm[Hg] [facility] Diastolic blood pressure 2023-12-23 05:02:00 84 mm[Hg] [facility] Heart rate 2023-12-23 05:02:00 78 /min [facility] Body temperature 2023-12-23 05:02:00 36.17 Debbie [facility] Respiratory rate 2023-12-23 05:02:00 17 /min [facility] Oxygen saturation in Arterial blood by Pulse oximetry 2023-12-23 05:02:00 91 /min [facility] Body height 2023-12-23 03:45:00 162.6 cm [facility] Body weight 2023-12-23 03:45:00 81.194 kg [facility] BMI 2023-12-23 03:45:00 30.73 kg/m2 [facility] Systolic blood pressure 2023-12-22 02:08:00 143 mm[Hg] [facility] Diastolic blood pressure 2023-12-22 02:08:00 92 mm[Hg] [facility] Heart rate 2023-12-22 02:08:00 81 /min [facility] Respiratory rate 2023-12-22 02:08:00 13 /min [facility] Oxygen saturation in Arterial blood by Pulse oximetry 2023-12-22 02:08:00 95 /min [facility] Body temperature 2023-12-22 01:33:00 36.72 Debbie [facility] Body height 2023-12-22 01:33:00 162.6 cm [facility] Body weight 2023-12-22 01:33:00 81.239 kg [facility] BMI 2023-12-22 01:33:00 30.74 kg/m2 [facility] Systolic blood pressure 2023-11-11 02:00:00 127 mm[Hg] [facility] Diastolic blood pressure 2023-11-11 02:00:00 87 mm[Hg] [facility] Heart rate 2023-11-11 02:00:00 79 /min [facility] Respiratory rate 2023-11-11 02:00:00 20 /min [facility] Oxygen saturation in Arterial blood by Pulse oximetry 2023-11-11 02:00:00 98 /min [facility] Body temperature 2023-11-11 01:31:00 36.28 Debbie [facility] Body height 2023-11-11 01:31:00 162.6 cm [facility] Body weight 2023-11-11 01:31:00 79.379 kg [facility] BMI 2023-11-11 01:31:00 30.04 kg/m2 [facility] Systolic blood pressure 2023-10-27 06:54:00 133 mm[Hg] [facility] Diastolic blood pressure 2023-10-27 06:54:00 94 mm[Hg] [facility] Heart rate 2023-10-27 06:54:00 95 /min [facility] Body temperature 2023-10-27 06:54:00 36.44 Debbie [facility] Respiratory rate 2023-10-27 06:54:00 22 /min [facility] Body height 2023-10-27 06:54:00 162.6 cm [facility] Body weight 2023-10-27 06:54:00 78.472 kg [facility] BMI 2023-10-27 06:54:00 29.70 kg/m2 [facility] Oxygen saturation in Arterial blood by Pulse oximetry 2023-10-27 06:54:00 94 /min [facility] Systolic blood pressure 2022-10-14 19:43:00 111 mm[Hg] [facility] Diastolic blood pressure 2022-10-14 19:43:00 74 mm[Hg] [facility] Heart rate 2022-10-14 19:43:00 98 /min [facility] Body temperature 2022-10-14 19:43:00 36.39 Debbie [facility] Respiratory rate 2022-10-14 19:43:00 22 /min [facility] Oxygen saturation in Arterial blood by Pulse oximetry 2022-10-14 19:43:00 94 /min [facility] [facility] 2022-10-14 16:13:00 162.6 cm [facility] Body weight 2022-10-14 16:13:00 81.647 kg [facility] BMI 2022-10-14 16:13:00 30.90 kg/m2 [facility] Systolic blood pressure 2022-03-12 10:13:00 119 mm[Hg] [facility] Diastolic blood pressure 2022-03-12 10:13:00 75 mm[Hg] [facility] Heart rate 2022-03-12 10:13:00 105 /min [facility] Body temperature 2022-03-12 10:13:00 37.28 Debbie [facility] Respiratory rate 2022-03-12 10:13:00 19 /min [facility] Body height 2022-03-12 10:13:00 162.6 cm [facility] Body weight 2022-03-12 10:13:00 99.791 kg [facility] BMI 2022-03-12 10:13:00 37.76 kg/m2 [facility] Oxygen saturation in Arterial blood by Pulse oximetry 2022-03-12 10:13:00 96 /min [facility] Systolic blood pressure 2022-02-20 11:57:00 155 mm[Hg] [facility] Diastolic blood pressure 2022-02-20 11:57:00 88 mm[Hg] [facility] Heart rate 2022-02-20 11:57:00 105 /min [facility] Respiratory rate 2022-02-20 11:57:00 18 /min [facility] Oxygen saturation in Arterial blood by Pulse oximetry 2022-02-20 11:57:00 100 /min [facility] Body temperature 2022-02-20 09:25:00 37 Debbie [facility] Body height 2022-02-20 09:25:00 162.6 cm [facility] Body weight 2022-02-20 09:25:00 96.163 kg [facility] BMI 2022-02-20 09:25:00 36.39 kg/m2 [facility] Procedures Procedure Date / Time Performed Performing Clinician Source AC PANEL 20 + LACTIC ACID 2024-02-08 20:47:00 Christina Villarreal [facility] XR CHEST 1 VW 2024-02-08 19:47:00 Christina Villarreal [facility] URINALYSIS 2024-02-08 19:36:00 [facility] MAGNESIUM 2024-02-08 19:25:00 [facility] TROPONIN I 2024-02-08 19:25:00 [facility] COMP. METABOLIC PANEL ([id number]) 2024-02-08 19:25:00 Christina Villarreal [facility] ETHANOL 2024-02-08 19:25:00 [facility] CBC WITH DIFF 2024-02-08 19:25:00 Christina Villarreal [facility] N-TERMINAL PRO-BNP 2024-02-08 19:25:00 Christina Villarreal [facility] EKG-12 LEAD 2024-01-14 12:00:51 [facility] LIPASE 2024-01-14 11:11:00 Jac Navarro [facility] TROPONIN I 2024-01-14 11:11:00 Jac Navarro [facility] COMP. METABOLIC PANEL (45230) 2024-01-14 11:11:00 Jac Navarro [facility] ETHANOL 2024-01-14 11:11:[facility]FF 2024-01-14 11:11:00 [facility] N-TERMINAL PRO-BNP 2024-01-14 11:11:00 Jac Navarro [facility] COVID-19 (ID NOW RAPID TESTING) 2024-01-14 11:11:00 Jac Navarro [facility] CONSENT/REFUSAL FOR DIAGNOSIS AND TREATMENT 2024-01-14 10:44:32 Doctor Unassigned, [place] [facility] LIPASE 2023-12-23 04:17:00 [facility] COMP. METABOLIC PANEL (63326) 2023-12-23 04:17:00 Tyler Rowe [facility] CBC WITH DIFF 2023-12-23 04:17:00 Tyler Rowe [facility] URINALYSIS 2023-12-23 04:17:00 [facility] CONSENT/REFUSAL FOR DIAGNOSIS AND TREATMENT 2023-12-23 03:40:32 Doctor Unassigned, [place] [facility] CT ABDOMEN PELVIS W CONTRAST 2023-12-22 02:31:05 Melinda Maciel [facility] LIPASE 2023-12-22 01:58:00 Melinda Maciel [facility] COMP. METABOLIC PANEL (91290) 2023-12-22 01:58:00 Melinda Maciel [facility] ETHANOL 2023-12-22 01:58:00 Melinda Maciel [facility] CBC WITH DIFF 2023-12-22 01:58:00 Melinda Maciel [facility] PROTHROMBIN TIME / INR 2023-12-22 01:58:00 Wali Maciel [facility] URINALYSIS 2023-12-22 01:58:00 Melinda Maciel [facility] CONSENT/REFUSAL FOR DIAGNOSIS AND TREATMENT 2023-12-22 01:19:14 Doctor Unassigned, [place] [facility] NOTICE OF PRIVACY PRACTICES 2023-11-11 01:24:24 Doctor Unassigned, [place] [facility] CONSENT/REFUSAL FOR DIAGNOSIS AND TREATMENT 2023-11-11 01:23:54 Doctor Unassigned, [place] [facility] COVID-19 (ID NOW RAPID TESTING) 2023-10-27 07:09:00 Jac Navarro [facility] NOTICE OF PRIVACY PRACTICES 2023-10-27 06:49:48 Doctor Unassigned, [place] [facility] CONSENT/REFUSAL FOR DIAGNOSIS AND TREATMENT 2023-10-27 06:47:40 Doctor Unassigned, [place] [facility] CT ABDOMEN PELVIS W CONTRAST 2022-10-14 17:33:00 Melinda Maciel [facility] XR CHEST 1 VW 2022-10-14 17:10:37 Singer [facility] TROPONIN I 2022-10-14 16:37:00 [facility] COMP. METABOLIC PANEL (20243) 2022-10-14 16:37:00 Melinda Maciel [facility] CBC WITH DIFF 2022-10-14 16:37:00 Melinda Maciel [facility] PROTHROMBIN TIME / INR 2022-10-14 16:37:00 Wail Maciel [facility] URINALYSIS 2022-10-14 16:37:00 [facility] N-TERMINAL PRO-BNP 2022-10-14 16:37:00 Singer [facility] CONSENT/REFUSAL FOR DIAGNOSIS AND TREATMENT 2022-10-14 15:56:36 Doctor Unassigned, [place] [facility] CONSENT/REFUSAL FOR DIAGNOSIS AND TREATMENT 2022-03-12 10:03:12 Doctor Unassigned, [place] [facility] XR CHEST 1 VW 2022-02-20 09:59:00 [facility] LIPASE 2022-02-20 09:30:00 Christy Holliday [facility] TROPONIN I 2022-02-20 09:30:00 Christy Holliday [facility] COMP. METABOLIC PANEL (45147) 2022-02-20 09:30:00 Christy Holliday [facility] CBC WITH DIFF 2022-02-20 09:30:00 Christy Holl[facility] N-TERMINAL PRO-BNP 2022-02-20 09:30:00 Christy Holliday [facility] NOTICE OF PRIVACY PRACTICES 2022-02-20 09:15:02 Doctor Unassigned, [place] [facility] CONSENT/REFUSAL FOR DIAGNOSIS AND TREATMENT 2022-02-20 09:14:47 Doctor Unassigned, [place] [facility] Encounters Start Date/Time End Date/Time Encounter Type Admission Type Attending [facility] Facility Care Department Encounter ID Source 2024-04-12 11:00:00 2024-04-12 11:00:00 Outpatient MINNA ORTA [id number] [facility] 2024-04-12 11:00:00 2024-04-12 11:00:00 Outpatient WENDY BROWNLEE [id number] [facility] 2024-04-05 11:30:00 2024-04-05 11:30:00 Outpatient DARIEN LOBO [id number] [facility] 2024-04-05 00:00:00 2024-04-05 00:00:00 Outpatient DARIEN LOBO [id number] [facility] 2024-03-28 00:00:00 2024-03-28 00:00:00 Outpatient DARIEN LOBO [id number] [facility] 2024-03-15 08:30:00 2024-03-15 08:30:00 Outpatient KEMWENDY POPE MARIA ELENA MARIA ELENA [id number] [facility] 2024-02-17 20:58:00 2024-02-17 21:44:00 Emergency X PEG CAMP [facility] ERT [id number] [facility] 2024-02-17 20:58:00 2024-02-17 21:44:00 Emergency Peg Camp [facility] 1.2.840.114 350.1.13.10 4.2.7.2.686 [id number] [facility] 2024-02-08 20:38:00 2024-02-08 21:40:00 Emergency X DEMETRIA DAVENPORT [facility] ERT [id number] [facility] 2024-02-08 20:38:00 2024-02-08 21:40:00 Emergency Issac Demetria Renetta [facility] 1.2.840.114 350.1.13.10 4.2.7.2.686 [id number] [facility] 2024-02-08 14:08:00 2024-02-08 17:06:00 Emergency Christina Villarreal [facility] 1.2.840.114 350.1.13.10 4.2.7.2.686 [id number] 084 [id number] [facility] 2024-01-14 04:46:00 2024-01-14 06:23:00 Emergency X JAC NAVARRO [facility] ERT [id number] [facility] 2024-01-14 04:46:00 2024-01-14 06:23:00 Emergency Jac Navarro [facility] 1.2.840.114 350.1.13.10 4.2.7.2.686 [id number] 084 [id number] [facility] 2023-12-22 21:51:00 2023-12-22 23:13:00 Emergency X TYLER ROWE [facility] ERT [id number] [facility] 2023-12-22 21:51:00 2023-12-22 23:13:00 Emergency Tyler Rowe [facility] 1.2.840.114 350.1.13.10 4.2.7.2.686 [id number] [id number] [facility] 2023-12-21 19:36:00 2023-12-21 21:52:00 Emergency X MELINDA MACIEL [facility] ERT [id number] [facility] 2023-12-21 19:36:00 2023-12-21 21:52:00 Emergency Melinda Maciel [facility] 1.2.840.114 350.1.13.10 4.2.7.2.686 [id number] 084 [id number] [facility] 2023-11-10 19:29:00 2023-11-10 20:14:00 Emergency X CHRISTY HOLLIDAY [facility] ERT [id number] [facility] 2023-11-10 19:29:00 2023-11-10 20:14:00 Emergency Christy Holliday [facility] 1.2.840.114 350.1.13.10 4.2.7.2.686 [id number] [id number] [facility] 2023-10-27 00:49:00 2023-10-27 01:41:00 Emergency X JAC NAVARRO [facility] ERT [id number] [facility] 2023-10-27 00:49:00 2023-10-27 01:41:00 Emergency Jac Navarro Flo [facility] 1.2.840.114 350.1.13.10 4.2.7.2.686 [id number] [id number] [facility] 2023-07-15 00:00:00 2023-07-15 00:00:00 Outpatient DARIEN LOBO MARIA ELENA [id number] [facility] 2023-06-16 11:30:00 2023-06-16 11:30:00 Outpatient DARIEN LOBO MARIA ELENA [id number] [facility] 2023-05-18 00:00:00 2023-05-18 00:00:00 Outpatient MARIA ELENA BECERRA MARIA ELENA [id number] [facility] 2022-10-14 10:07:00 2022-10-14 14:39:00 Emergency X MAGGIE MACIELIP [facility] ERT [id number] [facility] 2022-10-14 10:07:00 2022-10-14 14:39:00 Emergency MacielMelinda [facility] 1.2.840.114 350.1.13.10 4.2.7.2.686 [id number] 084 [id number] [facility] 2022-03-12 05:15:00 2022-03-12 06:41:00 Emergency X CHRISTY HOLLIDAY [facility] ERT [id number] [facility] 2022-03-12 05:15:00 2022-03-12 06:41:00 Emergency Christy Holliday [facility] 1.2.840.114 350.1.13.10 4.2.7.2.686 [id number] [id number] [facility] 2022-02-20 04:17:00 2022-02-20 07:16:00 Emergency X CHRISTY HOLLIDAY [facility] ERT [id number] [facility] 2022-02-20 04:17:00 2022-02-20 07:16:00 Emergency Christy Holliday [facility] 1.2.840.114 350.1.13.10 4.2.7.2.686 [id number] [facility] 2021-02-03 11:10:00 2021-02-03 11:10:00 Outpatient DENISE CAMPO [facility] [id number] [facility] 2021-01-13 11:20:00 2021-01-13 11:20:00 Outpatient [facility] [id number] [facility] 2020-11-10 08:20:00 2020-11-10 08:20:00 Outpatient KARLEY ESTRADA [facility] [id number] [facility] Results Test Description Test Time Test Comments Results Result Co mments Source [facility] + Lactic [id number] 20:52:47* Test Item Value Reference Range Interpretation Comme nts PH (test code = 2) 7.39 7.35-7.45 PCO2 (test code = 3749798844) 42 35-45 PO2 (test code = 9108769328) 76 80-100 L HCO3 (test code = 8313658381) 25 22-26 BE (test code = 0179480685) -0.1 -3.0-3.0 THB (test code = 1474546148) 14.3 g/dL 13.5-18.0 %O2HB (test code = 9929755967) 85.8 % 94.0-99.0 L %COHB ART (test code = 6359926419) 9.0 % 0.0-1.5 H %METHB ART (test code = 2298297852) 0.3 % 0.4-1.5 L VOL%O2 ART (test code = 2149306170) 17.3 % 15.0-23.0 NA (test code = 4975746220) 140 mmol/L 135-145 K+ (test code = 5122443782) 4.1 mmol/L 3.5-5.0 AC CA IONZ (test code = 3836734528) 4.50 mg/dL 4.50-5.30 GLUCOSE (test code = 1703395706) 105 mg/dL 70-110 LACTIC ACID (test code = 0445943327) 2.60 mmol/L 0.50-2.20 H Lab Interpretation (test cod e = 91980-4) Abnormal [id number] 20:34:14* Test Item Value Reference Range Interpretation Comme nts TROPONIN I (test code = 0304011034) 0.008 ng/mL <=0.034 LOUISE (test code = [...] of biotin. Lab Interpretation (test code = 63967-6) Normal [facility] Gbl-[id number] 20:31:35* Test Item Value Reference Range Interpretation Comme [facility] NT-proBNP (test code = 64986-9) 188 pg/mL <=125 LOUISE (test code = LOUISE) Result Indeterminate-Consid er causes of NT-proBNP elevation other than Heart failure such as acute coronary syndrome, pulmonary embolism, pulmonary hypertension, sepsis, stroke, and renal dysfunction. Lab Interpretation (test code = 68899-5) [facility]normal [facility] (04352)2024-02-08 20:21:10* Test Item Value Reference Range Interpretation Comme nts NA (test code = 9637175449) 135 mmol/L 135-145 K (test code = 2220863814) 4.5 mmol/L 3.5-5.0 CL (test code = 5556262690) 100 mmol/L 98-108 CO2 TOTAL (test code = 6186713157) 22 mmol/L 23-31 L AGAP (test code = 9683508769) 13 2-16 BUN (test code = 2019417617) 8 mg/dL 7-23 GLUCOSE (test code = 4361447646) 97 mg/dL 70-110 CREATININE (test code = 2160-0) 0.65 mg/dL 0.60-1.25 TOTAL BILI (test code = 0657916746) 0.4 mg/dL 0.1-1.1 CALCIUM (test code = 9590383090) 9.4 mg/dL 8.6-10.6 T PROTEIN (test code = 9512329875) 8.2 g/dL 6.3-8.2 ALBUMIN (test code = 8181510872) 4.7 g/dL 3.5-5.0 ALK PHOS (test code = 1004789276) 76 U/L 34-122 ALTv (test code = 1742-6) 33 U/L 5-50 AST(SGOT) (test code = 2848616644) 54 U/L 13-40 H eGFR (test code = 36632-3) 111.3 mL/min/1.73m2 CKD-EPI eGFR (2020). Assuming creatinine has been stable day-to-day for at least three months, the eGFR indicates Category G1 (>= 90 mL/min/1.73 m2) Lab Interpretation (test code = 42229-1) Abnormal [facility]2024-[facility] 20:21:10* Test Item Value Reference Range Interpretation Comme nts MAGNESIUM (test code = 7027813456) 2.1 mg/dL 1.7-2.4 Lab Interpretation (test cod e = 39021-2) Normal [facility] CHE[facility] 1 [id number] 20:07:21EXAM: XR CHEST 1 VW COMPARISON: 01/14/2024 HISTORY: sob FINDINGS: Lungs: Slightly hyperexpanded lungswith subtle progression of interstitialprominence. Trace pleural effusions could be present. Heart/Mediastinum: Stable cardiomegaly. Bones and soft tissues: No osseous abnormality is visualized.[facility] Cbc with [id number] 20:04:26* Test Item Value Reference Range Interpretation [...] 33.8 g/dL 31.2-35.0 RDW-SD (test code = 04877-3) 50.5 fL 38.5-51.6 RDW-CV (test code = 788-0) 14.3 % 12.1-15.4 PLT (test code = 777-3) 206 150-328 MPV (test code = 58734-4) 9.1 fL 9.8-13.0 L NRBC/100 WBC (test code = 4145186891) 0.0 0.0-10.0 NRBC x10^3 (test code = 1783808434) See_Comment [Automated messa ge] The system which generated this result transmitted reference range: 10*3/?L. The reference range was not used to interpret this result as normal/abnormal. GRAN MAT (NEUT) % (test code = 770-8) 81.0 % IMM GRAN % (test code = 7569993513) 1.20 % LYMPH % (test code = 736-9) 10.9 % MONO % (test code = 5905-5) 6.8 % EOS % (test code = 713-8) 0.0 % BASO % (test code = 706-2) 0.1 % GRAN MAT x10^3(ANC) (test code = 7748704990) 9.31 10*3/uL 1.99-6.95 H IMM GRAN x10^3 (test code = 7884613081) 0.14 10*3/uL 0.00-0.06 H LYMPH x10^3 (test code = 731-0) 1.25 10*3/uL 1.09-3.23 MONO x10^3 (test code = 742-7) 0.78 10*3/uL 0.36-1.02 EOS x10^3 (test code = 711-2) 0.06-0.53 L BASO x10^3 (test code = 704-7) 0.01-0.09 Lab Interpretation (test code = 92796-3) Abnormal [facility]. METABOLIC PANEL (32689)2023-12-23 04:53:26* Test Item Value Reference Range Interpretation Comme nts NA (test code = 3681486293) 135 mmol/L 135-145 K (test code = 8632488418) 3.2 mmol/L 3.5-5.0 L CL (test code = 4453774205) 104 mmol/L 98-108 CO2 TOTAL (test code = 4838444660) 23 mmol/L 23-31 AGAP (test code = 3284737545) 8 2-16 BUN (test code = 3886055258) 11 mg/dL 7-23 GLUCOSE (test code = 6969105595) 82 mg/dL 70-110 CREATININE (test code = 2160-0) 0.64 mg/dL 0.60-1.25 TOTAL BILI (test code = 9919946843) 0.5 mg/dL 0.1-1.1 CALCIUM (test code = 9609524845) 8.8 mg/dL 8.6-10.6 T PROTEIN (test code = 9391443505) 6.7 g/dL 6.3-8.2 ALBUMIN (test code = 8481558198) 4.1 g/dL 3.5-5.0 ALK PHOS (test code = 7179466190) 46 U/L 34-122 ALTv (test code = 1742-6) 21 U/L 5-50 AST(SGOT) (test code = 0672149290) 43 U/L 13-40 H eGFR (test code = 31707-8) 111.8 mL/min/1.73m2 CKD-EPI eGFR (2020). Assuming creatinine has been stable day-to-day for at least three months, the eGFR indicates Category G1 (>= 90 mL/min/1.73 m2) Lab Interpretation (test code = 80655-1) [facility]normal [facility] 04:53:26* Test Item Value Reference Range Interpretation Comme nts LIPASE (test code = 1933077292) 105 U/L 0-220 Lab Interpretation (test cod e = 36030-9) Normal [facility] WITH [id number] 04:34:24* Test Item Value Reference Range Interpretation [...] 33.0 g/dL 31.2-35.0 RDW-SD (test code = 85233-9) 50.9 fL 38.5-51.6 RDW-CV (test code = 788-0) 13.7 % 12.1-15.4 PLT (test code = 777-3) 232 150-328 MPV (test code = 49777-9) 8.7 fL 9.8-13.0 L NRBC/100 WBC (test code = 3754100331) 0.0 0.0-10.0 NRBC x10^3 (test code = 4342097449) See_Comment [Automated messa ge] The system which generated this result transmitted reference range: 10*3/?L. The reference range was not used to interpret this result as normal/abnormal. GRAN MAT (NEUT) % (test code = 770-8) 58.8 % IMM GRAN % (test code = 3718019589) 0.90 % LYMPH % (test code = 736-9) 27.8 % MONO % (test code = 5905-5) 10.5 % EOS % (test code = 713-8) 1.3 % BASO % (test code = 706-2) 0.7 % GRAN MAT x10^3(ANC) (test code = 2534278609) 5.68 10*3/uL 1.99-6.95 IMM GRAN x10^3 (test code = 9005995691) 0.09 10*3/uL 0.00-0.06 H LYMPH x10^3 (test code = 731-0) 2.69 10*3/uL 1.09-3.23 MONO x10^3 (test code = 742-7) 1.02 10*3/uL 0.36-1.02 EOS x10^3 (test code = 711-2) 0.13 10*3/uL 0.06-0.53 BASO x10^3 (test code = 704-7) 0.07 10*3/uL 0.01-0.09 Lab Interpretation (test code = 94655-7) [facility]normal [facility] W [id number] 03:32:43Exam: CT Abdomen and Pelvis With Contrast, [...] Interpretation Comme nts ALCOHOL (test code = 8764102733) 117 mg/dL LOUISE (test code = LOUISE) <10 Tcpcrzwp74-308 Toxic>100 Depression of FISHER PURSE SEINE>400 Fatalities Reported [facility] (71099)2023-12-22 02:31:43* Test Item Value Reference Range Interpretation Comme nts NA (test code = 0997471294) 133 mmol/L 135-145 L K (test code = 2481416912) 3.3 mmol/L 3.5-5.0 L CL (test code = 1952927248) 102 mmol/L 98-108 CO2 TOTAL (test code = 1079089174) 25 mmol/L 23-31 AGAP (test code = 3719939903) 6 2-16 BUN (test code = 7438441519) 11 mg/dL 7-23 GLUCOSE (test code = 1393646453) 75 mg/dL 70-110 CREATININE (test code = 8233695295) 0.51 mg/dL 0.60-1.25 L TOTAL BILI (test code = 8466206946) 0.5 mg/dL 0.1-1.1 CALCIUM (test code = 6605886529) 8.9 mg/dL 8.6-10.6 T PROTEIN (test code = 3899475686) 7.2 g/dL 6.3-8.2 ALBUMIN (test code = 6665992846) 4.5 g/dL 3.5-5.0 ALK PHOS (test code = 9735413173) 46 U/L 34-122 ALTv (test code = 1742-6) 15 U/L 5-50 AST(SGOT) (test code = 7471407094) 24 U/L 13-40 eGFR (test code = 91363-7) 119.7 mL/min/1.73m2 CKD-EPI eGFR (2020). Assuming creatinine has been stable day-to-day for at least three months, the eGFR indicates Category G1 (>= 90 mL/min/1.73 m2) Lab Interpretation (test code = 02904-6) Abnormal [facility]24-[facility] 02:31:43* Test Item Value Reference Range Interpretation Comme nts LIPASE (test code = 5095041927) 121 U/L 0-220 Lab Interpretation (test cod e = 57839-9) Normal [facility] Texas[facility]thrombin Time / [id number] 02:21:02* Test Item Value Reference Range Interpretation Comme nts PROTIME PATIENT (test code = 5964-2) 10.5 10.1-12.6 INR (test code = 6301-6) 0.9 Normal INR <1.1; Warfarin Therapeutic range 2.0 to 3.0 or 2.5 to 3.5, depending upon the indications. Lab Interpretation (test code = 08660-8) Normal [facility] with Agbv1614-17-52 02:14:04* Test Item Value Reference Range Interpretation [...] 34.0 g/dL 31.2-35.0 RDW-SD (test code = 79223-9) 49.1 fL 38.5-51.6 RDW-CV (test code = 788-0) 13.5 % 12.1-15.4 PLT (test code = 777-3) 260 150-328 MPV (test code = 13592-2) 8.7 fL 9.8-13.0 L NRBC/100 WBC (test code = 5372187047) 0.0 0.0-10.0 NRBC x10^3 (test code = 3855217683) See_Comment [Automated messa ge] The system which generated this result transmitted reference range: 10*3/?L. The reference range was not used to interpret this result as normal/abnormal. GRAN MAT (NEUT) % (test code = 770-8) 64.3 % IMM GRAN % (test code = 9466392100) 0.90 % LYMPH % (test code = 736-9) 24.2 % MONO % (test code = 5905-5) 9.1 % EOS % (test code = 713-8) 0.7 % BASO % (test code = 706-2) 0.8 % GRAN MAT x10^3(ANC) (test code = 5220722322) 8.73 10*3/uL 1.99-6.95 H IMM GRAN x10^3 (test code = 2983942789) 0.12 10*3/uL 0.00-0.06 H LYMPH x10^3 (test code = 731-0) 3.28 10*3/uL 1.09-3.23 H MONO x10^3 (test code = 742-7) 1.23 10*3/uL 0.36-1.02 H EOS x10^3 (test code = 711-2) 0.10 10*3/uL 0.06-0.53 BASO x10^3 (test code = 704-7) 0.11 10*3/uL 0.01-0.09 H Lab Interpretation (test code = 64408-0) Abnormal [facility] [id number] 10:16:22* Test Item Value Reference Range Interpretation Comments TROPONIN I (test code = 9088670287) 0.007 ng/mL See_Comment [Automated message] The system [...] of biotin. Lab Interpretation (test code = 51259-4) Normal [id number] 10:13:01* Test Item Value Reference Range Interpretation Comme nts NT-proBNP (test code = 9460159608) 52 pg/mL See_Comment [Automated message] The system which generated this result transmitted reference range: <=125. The reference range was not used to interpret this result as normal/abnormal. LOUISE (test code = LOUISE) Biotin has been reported to cause a negative bias, interpret results relative to patient's use of biotin. Lab Interpretation (test code = 19586-9) [facility] (43993)2022-02-20 10:04:02* Test Item Value Reference Range Interpretation Comme nts NA (test code = 6367594761) 137 mmol/L 135-145 K (test code = 8479320217) 3.6 mmol/L 3.5-5.0 CL (test code = 1646253701) 99 mmol/L 98-108 CO2 TOTAL (test code = 9489689541) 25 mmol/L 23-31 AGAP (test code = 3267276760) 2-16 BUN (test code = 7579841228) 6 mg/dL 7-23 L GLUCOSE (test code = 3330841706) 88 mg/dL 70-110 CREATININE (test code = 9601373145) 0.55 mg/dL 0.60-1.25 L TOTAL BILI (test code = 2309025299) 0.8 mg/dL 0.1-1.1 CALCIUM (test code = 2630153089) 8.9 mg/dL 8.6-10.6 T PROTEIN (test code = 0929823804) 7.5 g/dL 6.3-8.2 ALBUMIN (test code = 2398293406) 4.8 g/dL 3.5-5.0 ALK PHOS (test code = 1432258328) 113 U/L 34-122 ALTv (test code = 1742-6) 84 U/L 5-50 H AST(SGOT) (test code = 8382233923) 107 U/L 13-40 H eGFR (test code = 0636122085) mL/min/1.73m2 LOUISE (test code = LOUISE) Association [...] imaging tests). Lab Interpretation (test code = 16165-5) [facility], [id number] 10:03:21* Test Item Value Reference Range Interpretation Comme nts LIPASE (test code = 1046449214) 193 U/L 0-220 Lab Interpretation (test cod e = 68398-1) Normal [facility] WITH [id number] 09:39:17* Test Item Value Reference Range Interpretation Comme nts WBC (test code = 6690-2) See_Comment [appening] The system which generated this result transmitted reference range: 4.20 - 10.70 10*3/?L. The reference range was not used to interpret this result as normal/abnormal. RBC (test code = 789-8) See_Comment [appening] The system which generated this result transmitted [...] g/dL 31.2-35.0 H RDW-SD (test code = 68694-4) 44.4 fL 38.5-51.6 RDW-CV (test code = 788-0) 11.9 % 12.1-15.4 L PLT (test code = 777-3) See_Comment [Automated messa ge] The system which generated this result transmitted reference range: 150 - 328 10*3/?L. The reference range was not used to interpret this result as normal/abnormal. MPV (test code = 27304-3) 9.2 fL 9.8-13.0 L NRBC/100 WBC (test code = 1359759539) See_Comment [Automated OP3Nvoice ssage] The system which generated this result transmitted reference range: 0.0 - 10.0 /100 WBCs. The reference range was not used to interpret this result as normal/abnormal. NRBC x10^3 (test code = 8246821822) <0.01 See_Comment [Automated Humanoida ge] The system which generated this result transmitted reference range: 10*3/?L. The reference range was not used to interpret this result as normal/abnormal. GRAN MAT (NEUT) % (test code = 770-8) 69.9 % IMM GRAN % (test code = 5299014781) 1.50 % LYMPH % (test code = 736-9) 18.9 % MONO % (test code = 5905-5) 7.0 % EOS % (test code = 713-8) 1.9 % BASO % (test code = 706-2) 0.8 % GRAN MAT x10^3(ANC) (test code = 0188042026) 7.15 10*3/uL 1.99-6.95 H IMM GRAN x10^3 (test code = 5186521394) 0.15 10*3/uL 0.00-0.06 H LYMPH x10^3 (test code = 731-0) 1.93 10*3/uL 1.09-3.23 MONO x10^3 (test code = 742-7) 0.72 10*3/uL 0.36-1.02 EOS x10^3 (test code = 711-2) 0.19 10*3/uL 0.06-0.53 BASO x10^3 (test code = 704-7) 0.08 10*3/uL 0.01-0.09 Lab Interpretation (test code = 48944-4) Abnormal [facility] Notes Date/Time Note Provider Source 2024-02-17 21:43:52 2898-69-96V81:43:52F ormatting of this note might be different from the original.No answer in lobby. 99374-5Hhlsviaba department EviuVK2468-85-00C91:44:07[facility] department NoteTXT1.2.840.982237.1.13.104.2.7 .2.841438|[id number] for patient nfbq87990-7TeckYIETHYDJTBKQpdzdckw d C-CDA narrative wjjj780598544Vahnfr J Hoot RN[address]TXTX[address] 50PLSXUTHQKZFCGCFAWRZCGF5518-76-08 T21:44:071.2.840.307366.1.72.3.15| 1.2.840.544479.1.13.104.2.7.2.7278 79_[id number] Angy Turner RN [facility] 2024-02-17 21:42:10 7697-43-46P79:42:10F ormatting of this note might be different from the original.Pt's blood pressure cuff and pulse ox found lying on chair. Called for patient in lobby 2 times, no answer. No one in lobby. 99946-3Sbdxkcsye department BgtkXU2576-06-57O38:44:10[facility] department NoteTXT1.2.840.845501.1.13.104.2.7 .2.503093|[id number] for patient qgwb32757-5VzbrHULXQGJJQIQKfkkxyeb d C-CDA narrative pfxh932192047Jbxln A. Campbell RNUT[address]TXTX[address] 21GTVASHMHLVJVJZHPMPOUAM3395-31-87 T21:44:101.2.840.950024.1.72.3.15| 1.2.840.717516.1.13.104.2.7.2.7278 79_[id number] Sierra Samaniego RN [facility] 2024-02-17 21:41:09 9466-01-22V53:41:09F ormatting of this note might be different from the original.Pt not in lobby or in room. No answer in lobby. 20000-5Tlkeohsbj department FswbIN1581-26-88M47:41:40[facility] department NoteTXT1.2.840.823846.1.13.104.2.7 .2.087489|[id number] for patient cwpd87729-7ObmaQMUCDSXGYFDSpiqwvuz d C-CDA narrative textUT[address]TXTX[address] 06HOAEVIJICCTPNRITOPDAOC1294-74-24 T21:41:401.2.840.739053.1.72.3.15| 1.2.840.062931.1.13.104.2.7.2.7278 79_[id number] [facility] 2024-02-17 21:14:29 7135-52-52M81:14:29F ormatting of this note might be different from the original.Pt not in FT01- and no answer in lobby. 09094-2Htidnlncv department KhupWX2645-78-71N04:15:32[facility] NoteTXT1.2.840.121022.1.13.104.2.7 .2.697032|[id number] for patient lcop02330-3QptfLYQZIIZMLMBAkzzpkii d C-CDA narrative text[address]TXTX[address] 28WQPFXYHZNUIFSOZZBLRVWJ7088-58-28 T21:15:321.2.840.554102.1.72.3.15| 1.2.840.681832.1.13.104.2.7.2.7278 79_[id number] [facility] 2024-02-17 20:48:50 6437-30-49H38:48:50F ormatting of this note might be different from the original.Pt arrives ambulatory to ED c/o SOB, right upper abdominal pain, and left leg and hip pain. Pt states that he has been on prednisone for about 5 yrs which had given him osteoporosis which is causing his leg pain. Reports hx of COPD, o2 is generally @ 91 he says. 22592-4Gxarbakje department Triage vuzoCF4108-29-71W88:53:54[facility] department Triage noteTXT1.2.840.542205.1.13.104.2.7 .2.045465|[id number] for patient wwxx16404-7Ssmmwxrkx department NoteLNNARRATIVEFormatted C-CDA narrative [id number] [address]ORD[address]TXTX[address] 58PRPNGORWHLIJHELGQZUQOA3951-08-63 T20:53:541.2.840.410747.1.72.3.15| 1.2.840.503546.1.13.104.2.7.2.7278 79_[id number] Leah Lizama RN [facility] 2024-02-08 21:37:56 1346-79-47Z29:37:56F ormatting of this note might be different from the original.Pt left AMA 89529-7Nigrobbzv department AyikJP6817-03-42V31:38:11[facility] department NoteTXT1.2.840.437012.1.13.104.2.7 .2.262535|[id number] for patient mguh60932-0PwrkOJVZRRDZXDGXltvolsa d C-CDA narrative snbn641847676Lciwx Raul Cristian RN[address]TXTX[address] 98CTOFCRFYEVIACXGUVRREYZ1484-33-81 T21:38:111.2.840.611712.1.72.3.15| 1.2.840.550115.1.13.104.2.7.2.7278 79_[id number] Kylie Foster RN [facility] 2024-02-08 21:32:00 3062-20-21O84:32:00F ormatting of this note might be different from the original.Patient leaving AMA after self removing his IV [...] ambulatory with steady gait, [place] NAD 70045-0Ngyrtcpkf department ArltEK0121-39-32P53:40:32[facility] department NoteTXT1.2.840.547769.1.13.104.2.7 .2.523755|[id number] for patient znzm34099-3NxkvWODTONKMNELSdjznpse d C-CDA narrative text[address]TXTX[address] 04PWJJUNQTSGAZVEOCDLAPJY6003-48-05 T21:40:321.2.840.150868.1.72.3.15| 1.2.840.802517.1.13.104.2.7.2.7278 79_[id number] [facility] 2024-02-08 20:54:38 1554-53-31H33:54:38F ormatting of this note might be different from the original.Pt states he uses O2 at home, portable O2 is broken 40748-2Ngkwxlrik department JfpiEY3062-72-81J46:55:13[facility] NoteTXT1.2.840.751077.1.13.104.2.7 .2.857356|[id number] for patient uqrk11250-6DowpDRMCLPABUKBRepomcat d C-CDA narrative [employer] Reviewed[address]TXTX[address] 43HEQQSYDWSOJZZAMKEEMQUW4828-37-91 T20:55:131.2.840.466350.1.72.3.15| 1.2.840.140928.1.13.104.2.7.2.7278 79_[id number] [facility] 2024-02-08 20:51:11 3479-44-31T38:51:11F ormatting of this note might be different from the original.Pt ambulates with cane 61294-4Oijrimbpu department DgmdES0801-19-73Z11:51:26[facility] department NoteTXT1.2.840.450423.1.13.104.2.7 .2.470608|[id number] for patient kubh96380-0VrzfUNRUEPHIYVPNuqlgmvb d C-CDA narrative [employer]TXTX[address] 37SNVROZHMMSGAMDYZFAQZOV1535-65-11 T20:51:261.2.840.503118.1.72.3.15| 1.2.840.876237.1.13.104.2.7.2.7278 79_[id number] [facility] 2024-02-08 20:43:13 7586-83-32K76:43:13F ormatting of this note might be different from the original.CC: Pt arrives SOB after leaving [place] earlier in the shift. He reports he [...] 3 BC powders and drank 3 beers." 00939-1Kgrqhwiah department Triage zcgdJD8379-25-99C31:48:36[facility] department Triage noteTXT1.2.840.102509.1.13.104.2.7 .2.124558|[id number] for patient nuqm42491-8Msilyhycr department NoteLNNARRATIVEFormatted C-CDA narrative [id number] [address] VknpVmbwzjzokOykadmrkmGPZJ27263317 82WZWULPTUXRQFJLNGYHLDRW6046-92-70 T20:48:361.2.840.002292.1.72.3.15| 1.2.840.420396.1.13.104.2.7.2.7278 79_[id number] Leah King RN [facility] 2024-02-08 17:04:05 2765-98-70R69:04:05F ormatting of this note might be different from the original.Patient walked to the nurses station and stated "I have another emergency and I have to leave right now. I need this IV taken out immediately."Encouraged patient to stay and he stated "I have to leave immediately and I don't want to take this out myself" IV d/c at this time and patient ambulated out of the department with a steady gait. [address]95-0Nkbjpbxip[address] EsuoZQ2709-87-44B38:05:22[facility] department NoteTXT1.2.840.338776.1.13.104.2.7 .2.221642|[id number] for patient jtyi19917-1RppwVGDNCPTKYCDGwtlzosw d C-CDA narrative ajly257502260Cblu M Hayes RN[address]TXTX[address] 77OQIIMUJMDGFFIEWVEQHUBA3483-69-41 T17:05:221.2.840.794515.1.72.3.15| 1.2.840.134076.1.13.104.2.7.2.7278 79_[id number] Allison Zhang RN [facility] 2024-02-08 14:23:02 7619-28-96C59:23:02F ormatting of this note might be different from the original.Pt ambulates with a cane 75569-0Zkklocxje department OdbsAC5342-06-35R06:23:12[facility] NoteTXT1.2.840.863278.1.13.104.2.7 .2.335540|[id number] for patient dipl06134-4HnrrFNCGUGZMPRHDgmsfjhq d C-CDA narrative ubaj344698979JadtpKylie Foster RN[address]TXTX[address] 95OLPVTBGITWVDPTMRUVCEJJ6119-75-34 T14:23:121.2.840.140530.1.72.3.15| 1.2.840.827066.1.13.104.2.7.2.7278 79_[id number] Kylie Foster RN [facility] 2024-02-08 14:13:15 2135-42-76M72:13:15F ormatting of this note might be different from the original.Pt has taken 8-packets of BC powder. Has [...] only thing that helps." Face is flushed. 41492-0Ednqfonzo department Triage nqjiJH4226-12-61K81:17:26[facility] Triage noteTXT1.2.840.430677.1.13.104.2.7 .2.227276|0374096102ZWYokomifkq for patient yutd71056-8Klbyfxmcf department NoteLNNARRATIVEFormatted C-CDA narrative dtmu018893113Edfydqc Fief RN[address] DploNhkirtjyuUrkhqiedkQCGD56322625 93FSSQZZGTRPRBGRLPZEJFYF6120-68-30 T14:17:261.2.840.510838.1.72.3.15| 1.2.840.285278.1.13.104.2.7.2.7278 79_[id number] Hali Aviles RN [facility] 2024-01-14 06:16:25 9902-59-11S33:16:25F ormatting of this note might be different from the original.Pt given printed and verbal discharge instructions regarding [...] w/d, pt leaving in no apparent distress, 26362-3Lhxbpfzki department FlmhYZ8354-70-81V49:17:20[facility] NoteTXT1.2.840.466094.1.13.104.2.7 .2.827912|9096512156LORkxhkznpj for patient otxq48750-8TqnyABVLHSWPUBULqqbuwfe d C-CDA narrative textUT[address] QvllVtmpefapqUwfuzhnmvJNVK47646439 15ELHTYVCUHOHXGIFRDTRYRH0740-33-15 T06:17:201.2.840.543062.1.72.3.15| 1.2.840.300330.1.13.104.2.7.2.7278 79_[id number] [facility] 2024-01-14 04:49:43 1703-03-25A96:49:43F ormatting of this note might be different from the original.CC: "My COPD is acting up real bad since yesterday and making my (left) chest hurt." Pt reports symptoms started at 1630 yesterday. Pt states he took a Nitro SL this morning without relief. 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, takes 6 per day for osteoporosis.PMHx: see Yolande, alert, oriented, resp reg unlabored, skin warm, color appropriate for race, moves all ext without difficulty, amb with steady gait 48696-2Hwvkippir department Triage xftcIL0675-33-69Q42:55:49[facility] department Triage noteTXT1.2.840.362190.1.13.104.2.7 .2.855031|0591067314NXHftbjfkny for patient qgru98292-9Woqxpjjho department NoteLNNARRATIVEFormatted C-CDA narrative iqzi792654958Nbsbfb R Shehadeh RN[address]vdGal[address]onGalvestonTXTX[address] 82VGWOGILPYCHGNUSLRDIXPP4422-66-77 T04:55:491.2.840.125535.1.72.3.15| 1.2.840.375844.1.13.104.2.7.2.7278 79_[id number] Leah King RN [facility] 2024-01-14 04:43:00 4940-27-97A44:43:00A ssociated Order(s): EKG-12 Lead ROUTINE ONCEPre-Procedure Diagnose(s): Chest pain, unspecified typePost-Procedure Diagnose(s): Chest pain, unspecified type [facility] Emergency Department NotePatient Name: Randy BrionesDate of : 1970 53 year old maleTreatment Room: DE1/DP0Nsoyrjq Record Number: [id number] Care Physician: Adrianna King Escorted by: Family [5]Mode of Arrival: Personal means [1]EMS Treatment 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 METABOLIC PANEL (99154) - AbnormalResult Value Ref RangeNA 138 135 [...] 49 (*) 13 - 40 U/LeGFR 93.3 mL/min/1.12y1OVV WITH DIFF - AbnormalWBC 11.59 (*) 4.20 [...] 220 U/LCOVID-19 (ID NOW RAPID TESTING) - SsxiuoCUSW-EvS-3 Rapid ID NOW Not Detected Not DetectedETHANOLALCOHOL 62 mg/dLEKG:If EKG completed, see Procedure Note.Orders and Treatments:Orders Placed This EncounterProcedures XR CHEST 1 VW TROPONIN I COMP. METABOLIC PANEL (67970) LIPASE, SERUM CBC WITH DIFF N-Terminal Pro-Bnp Ethanol COVID-19 (ID NOW TESTING) Lab Only COVID Interpretation O2 Per ProtocolOrders Placed This EncounterMedications morpHINE (4 mg/mL) injection 4 mg ondansetron (ZOFRAN (PF)) injection 4 mg ipratropium-albuteroL (DUONEB) 0.5 mg-3 mg(2.5 mg base)/3 mL nebulizer solution 3 mLFirst Provider Eval:ED EventsDate/Time Event User Iritldzm43/07/24 0510 Medical Screening Begins JAC NAVARRO MD --01/14/24 0510 First Provider Evaluation JAC NAVARRO MD --ED COURSEDiagnosis/Impression as of 01/14/24 0605Chest pain, unspecified typeBronchitisProcedures:EKG-12 Lead ROUTINE ONCEDate/Time: 01/14/2024 5:24 AMPerformed by: Jac Navarro MDAuthorized by: Jac Navarro MDECG interpreted by ED Physician in the absence of a grill attendant: yesPrevious ECG:Previous ECG: Compared to currentSimilarity: No changeInterpretation:Interpretatio n: non-specificRate:ECG rate: 100ECG rate assessment: normalRhythm:Rhythm: sinus [...] MG TABLET TAKE ONE TABLET BY MOUTH DAILYTRIAMTERENE-HYDROCHLOROTHIAZI D 37.5-25 MG TABLET Take 1 tablet by mouth daily.TRIAMTERENE-HYDROCHLOROTHIAZ LEANA 37.5-25 MG PER CAPSULE Take 1 capsule by mouth every morning.START taking Modified Medications as PrescribedNo medications on fileSTOP taking these medicationsNo medications on fileFollow-up:Electronically signed by:Jac Navarro MD01/14/24 0600 20353-7Gghpkpdwx Emergency department JrelUY0723-10-28M21:00:50Physician Emergency department NoteTXT1.2.840.068418.1.13.104.2.7 .2.521302|[id number] for patient utov84612-7Ezucjhpro department NoteLNNARRATIVEFormatted C-CDA narrative text[address]TXTX[address] 18ULTIJLCBMCSIEMFKHTCCQR1116-42-41 T06:00:501.2.840.224439.1.72.3.15| 1.2.840.777287.1.13.104.2.7.2.7278 79_[id number] [facility] 2023-12-22 23:12:16 5740-35-08T10:12:16F ormatting of this note might be different from the original.Pt given printed and verbal discharge instructions regarding [...] with steady gait, in no apparent distress, 66899-6Fzmqvdsee department XyxiEQ9424-74-72F98:13:50[facility] NoteTXT1.2.840.433366.1.13.104.2.7 .2.205385|9839336386XIHuaantaro for patient boeo87978-7FcxbGRFPGTEMNDQMxxfieio d C-CDA narrative ddth005311479PfjqkMary Magaña RNUT[address]TXTX[address] 24KMSDATBLNCOKVZXDRBEMMG1621-12-74 T23:13:501.2.840.045932.1.72.3.15| 1.2.840.525539.1.13.104.2.7.2.7278 79_[id number] Mary Magaña RN [facility] 2023-12-22 21:41:55 1553-63-64D37:41:55F ormatting of this note might be different from the original.Pt arrives ambulatory to ED reporting bleeding with stools and 10/10 abdominal pain. States he was here last night but had to leave before receiving results d/t having to work. Says the pain became worse so he came back in. 70464-2Zxxdvjatx department Triage adpzTO2199-98-43Q03:48:52[facility] Triage noteTXT1.2.840.394568.1.13.104.2.7 .2.365507|[id number] for patient meka80164-4Kntdbodok department NoteLNNARRATIVEFormatted C-CDA narrative eggm454927877Bhnqkq L Williams RN[address] BsoxZaagttapbWkfvhgmdpCTKT89759130 83RIDAHTOHJRUBANMXGPASVT6947-90-36 T21:48:521.2.840.657275.1.72.3.15| 1.2.840.976605.1.13.104.2.7.2.7278 79_[id number] Leah Lizama RN [facility] 2023-12-21 21:31:00 3762-18-45R58:31:00F ormatting of this note might be different from the original.Patient leaving AMA,discussed risks of leaving against medical advice, Dr. Maciel aware and notified of patient's decision.Patient encouraged to seek medical attention for any new/prolonged/worsening of symptoms and stressed importance of follow up with a medical provider as soon as possible. AMA form explained, patient signed form.IV d'cd, dressing to site.Patient leaving ambulatory with steady gait, appears in no distress. [address] RsysRR9005-57-62A40:38:39[facility] department NoteTXT1.2.840.896913.1.13.104.2.7 .2.071104|[id number] for patient yzye25018-0LkmqEMUAGSLVMRCHnsmgibk d C-CDA narrative zbzl759080858ZuypsMary Magaña RN[address]TXTX[address] 20QYKWTGMWZXJXFSJFPXVYWR4477-12-67 T21:38:391.2.840.152440.1.72.3.15| 1.2.840.084222.1.13.104.2.7.2.7278 79_[id number] Mary Magaña RN [facility] 2023-12-21 21:30:00 3777-51-06N80:30:00F ormatting of this note might be different from the original.Pt wished to leave AMA. Pt states " yall were wonderful but 3am come real early." [address]-4Ujgtjowno[address] GjzlDL5376-90-21E52:36:58[facility] department NoteTXT1.2.840.834118.1.13.104.2.7 .2.316125|[id number] for patient hxez44150-1FltaGDBUSBFOFHMVywmbqpp d C-CDA narrative text[address]TXTX[address] 11QKTZZKBLKPWEVKPXJJYOTS0184-78-98 T21:36:581.2.840.988515.1.72.3.15| 1.2.840.987317.1.13.104.2.7.2.7278 79_[id number] [facility] 2023-12-21 21:26:22 2126-58-67Y51:26:22F ormatting of this note might be different from the original.Pt asking to go outside and smoke, wants to go home and eat. Pt educated on risks of leaving AMA. Provider informed pt is in pain. 35616-7Wakalnara department WrrxJX4623-40-91W33:33:35[facility] department NoteTXT1.2.840.065007.1.13.104.2.7 .2.985911|0123453095BGJgrtuzvli for patient cwgx22789-2PzecWEBXPSBOLDQXxfyyiyn d C-CDA narrative ciqw706711891Cocncf R Shehadeh RN[address]TXTX[address] 37PXNIXMZXPUDXGQTZCFGJSP7788-91-97 T21:33:351.2.840.730733.1.72.3.15| 1.2.840.650301.1.13.104.2.7.2.7278 79_[id number] Leah King RN [facility] 2023-12-21 19:31:50 3187-68-79U48:31:50F ormatting of this note might be different from the original.Pt arrived ambulatory with complaints of bright red rectal bleeding and generalized abdominal pain this afternoon. Pt states his stool was normal consistency but continuous bright red blood. 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 States he vomits all the time but not something new today. 53237-5Okxgmeobs department Triage tbaaXA6936-31-83T27:33:28[facility] department Triage noteTXT1.2.840.561127.1.13.104.2.7 .2.707495|[id number] for patient jerz55361-9Ajaggvdmb department NoteLNNARRATIVEFormatted C-CDA narrative uzhp523451696Smomso D Roman RN[address]TXTX[address] 02JPWRTWSSAZCRFAQBJJEOIM9206-51-00 T19:33:281.2.840.388630.1.72.3.15| 1.2.840.270510.1.13.104.2.7.2.7278 79_[id number] Gabi Esqueda RN [facility] 2023-11-10 20:13:39 2354-94-41S68:13:39F ormatting of this note might be different from the original.Pt requesting to leave AMA. ERP notified. Pt counseled to remain, risks of leaving AMA including discussed with pt. Pt continued to decline further ER evaluation at this time. AMA papers signed, witnessed, and placed on patient's chart. Pt left ambulatory. VS stable, no ataxia noted, GCS 15, A&Ox4. 76963-8Maqowhpcb department AvfyOF6937-49-47G46:13:52[facility] department NoteTXT1.2.840.417355.1.13.104.2.7 .2.220770|[id number] for patient zlil70465-9DrqwHCDBJNMCECJJodlruoj d C-CDA narrative keuz667085385KyeuvxBriseida Medrano RN[address]TXTX[address] 49ZXINQRIPJMAJYAIJJUZECV3683-08-32 T20:13:521.2.840.578695.1.72.3.15| 1.2.840.150018.1.13.104.2.7.2.7278 79_[id number] Briseida Medrano RN [facility] 2023-11-10 19:30:29 6854-75-41X92:30:29F ormatting of this note might be different from the original.Patient arrived to ED c/o SOB and COPD exacerbation. Symptoms started this morning. Patient wears 3L NC at home. Patient is a smoker. Patient states having the chills, diarrhea, and vomiting. States having sharp pains in chest from coughing. 17470-5Cqnkfpvtv department Triage wzxbHF0031-11-02L05:35:27[facility] department Triage noteTXT1.2.840.311313.1.13.104.2.7 .2.508060|0660473636KNTfrwvvige for patient ccld71923-9Hynrxsviu department NoteLNNARRATIVEFormatted C-CDA narrative [id number]-Vylgh McInnis RNUT[address] WyftRkrtwioemZfbddzjvhAVFF86333564 [id number] T19:35:271.2.840.663595.1.72.3.15| [id number] Sreedhar Gomez RN [facility]
[2024-04-10] MEDS ORDERED: ONDANSETRON 4 MG/2 ML VIAL ONE (20:45)
[2024-04-10] MEDS ORDERED: ALBUTEROL 2.5 MG/3 ML NEB SOL ONE (20:45)
[2024-04-10] MEDS ORDERED: IPRATROPIUM BROM 0.5MG/2.5ML ONE (20:45)
[2024-04-10] MEDS ORDERED: MORPHINE 4 MG/ML SYR ONE (20:45)
[2024-04-10 21:12] LABS: Absolute Basophils 0.2 K/uL (0-0.5); Absolute Eosinophils 0.1 K/uL (0-0.5); Absolute Lymphocytes (CBC) 2.3 K/uL (0.7-4.9); Absolute Neutrophil 8.6 K/uL (1.8-8.0); Basophils % 1.2 % (0-1.3); Eosinophils % 0.8 % (0-4.4); Hematocrit 36.7 % (39.6-49.0); Hemoglobin 12.4 g/dL (13.6-17.9); Lymphocytes % 18.7 % (15.3-44.8); MCH 33.2 pg (27.0-35.0); MCHC 33.7 g/dL (32.0-36.0); MCV 98.5 fL (80-100); MPV 6.5 fL (7.6-11.3); Monocytes % 8.1 % (3.3-12.3); Neutrophils % 71.2 % (41.7-73.7); Nucleated Red Blood Cells % 0.1 % (0-0); Platelets 261 thou/uL (152-406); RBC Red Blood Cell Count 3.72 M/uL (4.33-5.43)
--- NOTE | 2024-04-10 21:18 | RAD REPORT ---
EXAM DESCRIPTION: [facility] Single View04/10/2024 8:59 pm CLINICAL HISTORY: Chest pain COMPARISON: March FINDINGS: The right middle lobe atelectasis appears partially resolved Left lung appears clear of acute infiltrate. Heart is enlarged
--- NOTE | 2024-04-10 21:29 | EDPHYS ---
Physician Documentation [facility] Name: Randy Briones Age: 53 yrs Sex: Male : 1970 Arrival Date: 04/10/2024 Time: 20:10 Bed 20 Private MD: ED Physician Milton Reyes HPI: 04/10 20:27 This 53 yrs old Male presents to ER via Unassigned with complaints of Shortness Of rt Breath. 20:27 Patient with history of COPD, discharge from the hospital for pneumonia 2 days ago rt presents to the ED with worsening breathing over the past few hours. Reports left-sided chest pain. Denies other acute complaints at this time, symptoms are moderate severity, no other aggravating or alleviating factors. Historical: - Allergies: 20:25 Lisinopril; jw7 - PMHx: 20:25 Alcoholism; COPD; Hepatitis B (Hypertension); 02 3LNC PRN; Hypertension; jw7 Osteoporosis; - PSHx: 20:25 Amputation of left index finger; jw7 - Immunization history:: Adult Immunizations up to date. - Infectious Disease History:: Denies. - Family history:: not pertinent. - Social history:: Smoking status: Patient reports the use of cigarette tobacco products. ROS: 20:44 Constitutional: Negative for fever, chills, and weight loss, Abdomen/GI: Negative for rt abdominal pain, nausea, vomiting, diarrhea, and constipation, MS/Extremity: Negative for injury and deformity, Skin: Negative for injury, rash, and discoloration, Neuro: Negative for headache, weakness, numbness, tingling, and seizure, 20:44 Cardiovascular: Positive for chest pain, Negative for edema, 20:44 Respiratory: Positive for cough, wheezing, Exam: 20:44 Constitutional: This is a well developed, well nourished patient who is awake, alert, rt and in no acute distress. Head/Face: Normocephalic, atraumatic. Chest/axilla: Normal chest wall appearance and motion. Nontender with no deformity. No lesions are appreciated. Cardiovascular: Regular rate and rhythm with a normal S1 and S2. No gallops, murmurs, or rubs. Normal PMI, no JVD. No pulse deficits. Abdomen/GI: Soft, non-tender, with normal bowel sounds. No distension or tympany. No guarding or rebound. No evidence of tenderness throughout. Skin: Warm, dry with normal turgor. Normal color with no rashes, no lesions, and no evidence of cellulitis. MS/ Extremity: Pulses equal, no cyanosis. Neurovascular intact. Full, normal range of motion. Neuro: Awake and alert, GCS 15, oriented to person, place, time, and situation. Cranial nerves II-XII grossly intact. Motor strength 5/5 in all extremities. Sensory grossly intact. Cerebellar exam normal. Normal gait. 20:44 Respiratory: Wheezes heard on all lung lozano, no respiratory distress, Vital Signs: 20:25 BP 127 / 76; Pulse 97; Resp 20 S; Pulse Ox 97% on R/A; jw7 21:00 BP 118 / 66; Pulse 90; Resp 20 S; Pulse Ox 95% on R/A; jw7 21:20 BP 129 / 62; Pulse 97; Resp 21 S; Pulse Ox 96% on R/A; jw7 MDM: 20:17 Patient medically screened. rt 21:55 Differential diagnosis: Pneumonia, COPD. Data reviewed: vital signs, nurses notes, rt radiologic studies. Independent interpretation of the following test(s) in the Emergency Department X-Ray: My interpretation is No pneumothorax, interpretation of x-ray images. Counseling: I had a detailed discussion with the patient and/or guardian regarding the historical points, exam findings, and any diagnostic results supporting the discharge/admit diagnosis, radiology results. ED course: Patient states that a family member had an emergency, request to be discharged. Informed patient of x-ray results.. 04/10 20:22 Order name: Basic Metabolic Panel rt 04/10 20:22 Order name: CBC with Diff rt 04/10 20:22 Order name: LFT's rt 04/10 20:22 Order name: Magnesium rt 04/10 20:22 Order name: NT PRO-BNP rt 04/10 20:22 Order name: Troponin HS rt 04/10 20:22 Order name: XRAY Chest (1 view); Complete Time: 21:20 rt 04/10 20:22 Order name: EKG - Nurse/Tech; Complete Time: 21:29 rt 04/10 20:22 Order name: IV Saline Lock; Complete Time: 20:42 rt 04/10 20:22 Order name: Labs collected and sent; Complete Time: 20:42 rt 04/10 20:22 Order name: O2 Per Protocol; Complete Time: 20:42 rt 04/10 20:22 Order name: O2 Sat Monitoring; Complete Time: 20:42 rt Administered Medications: 20:55 Drug: DuoNeb Nebulize (3:1) (2.5 mg - 0.5 mg) 3 ml Nebulizer once Route: Nebulizer; jw7 21:29 Follow up: Response: No adverse reaction; Marked relief of symptoms jw7 21:03 Drug: morphine IVP or IV 4 mg IVP once over 4 mins Route: IVP; Infused Over: 4 mins; jw7 Site: right forearm; 21:29 Follow up: Response: No adverse reaction; Marked relief of symptoms; Pain is decreased jw7 21:03 Drug: Ondansetron IVP 4 mg IVP once; over 2 minutes Route: IVP; Site: right forearm; jw7 21:29 Follow up: Response: No adverse reaction; Marked relief of symptoms jw7 Disposition Summary: 04/10/24 21:28 Discharge Ordered Notes: Location: Home rt Problem: an ongoing problem rt Symptoms: have improved rt Condition: Stable rt Diagnosis - Shortness of breath rt Followup: rt - With: Private Physician - When: 2 - 3 days - Reason: Discharge Instructions: - Discharge Summary Sheet rt - Shortness of Breath, Adult rt Forms: - Medication Reconciliation Form rt - Antibiotic Education rt - Prescription Opioid Use rt - Patient Portal Instructions rt - Leadership Thank You Letter rt Signatures: [facility] Kaila Levine RN RN jw7 Milton Reyes MD MD rt Corrections: (The following items were deleted from the chart) 20: 20:22 Chest Single View+RAD.RAD.BRZ ordered. EDNJ EDMS : 20:22 Cardiac monitoring ordered. rt jw7
[2024-04-10 21:32] LABS: ALT/SGPT 21 U/L (16-61); AST/SGOT 11 U/L (15-37); Albumin 3.3 g/dL (3.4-5.0); Albumin/Globulin Ratio 0.8 (1.1-1.8); Alkaline Phosphatase 66 U/L (45-117); Anion Gap 10.1 mEq/L (5.0-15.0); BUN Blood Urea Nitrogen 7 mg/dL (7-18); Bicarbonate 25 mEq/L (21-32); Bilirubin Direct < 0.2 mg/dL (0-0.2); Bilirubin Indirect, Calculated 0.1 mg/dL (0.2-0.8); Bilirubin Total 0.3 mg/dL (0.2-1.0); Globulin 3.9 g/dL (2.3-3.5); Glomerular Filtration Rate 117 ml/min (=/>90); Glucose Level 79 mg/dL (74-106); Magnesium 2.3 mg/dL (1.6-2.4); NT PRO-BNP 76 pg/mL (<125); Potassium 4.1 mEq/L (3.5-5.1); Protein, Total 7.2 g/dL (6.4-8.2); Sodium Level 134 mEq/L (136-145); Troponin High Sensitivity 3.5 pg/mL (<58.9)
--- NOTE | 2024-04-10 21:38 | ER ---
Nurse's Notes [facility] Name: Randy Briones Age: 53 yrs Sex: Male : 1970 Arrival Date: 04/10/2024 Time: 20:10 Bed 20 Private MD: Diagnosis: Shortness of breath Presentation: 04/10 20:25 Chief complaint: Patient states: I've been having pain to my left side when I take a jw7 breath in and some SOB. Coronavirus screen: At this time, the client does not indicate any symptoms associated with coronavirus-19. Ebola Screen: No symptoms or risks identified at this time. 20:25 Method Of Arrival: EMS: [facility] jw7 20:25 Initial Sepsis Screen: Does the patient meet any 2 criteria? No. Patient's initial jw7 sepsis screen is negative. Does the patient have a suspected source of infection? No. Patient's initial sepsis screen is negative. Risk Assessment: Do you want to hurt yourself or someone else? Patient reports no desire to harm self or others. Onset of symptoms was April 09, 2024. Care prior to arrival: Medication(s) given: DUO NEB [place]. 20:25 Acuity: CANDACE 3 jw7 Triage Assessment: 20:25 General: Appears in no apparent distress. uncomfortable, Behavior is calm, cooperative, jw7 appropriate for age. Pain: Complains of pain in left lateral anterior chest and left lateral posterior chest Pain does not radiate. Pain currently is 8 out of 10 on a pain scale. Quality of pain is described as sharp, Pain began 1 day ago. Is intermittent. EENT: No deficits noted. No signs and/or symptoms were reported regarding the EENT system. Neuro: Level of Consciousness is awake, alert, obeys commands, Oriented to person, place, time, situation. Cardiovascular: Heart tones S1 S2 present Capillary refill < 3 seconds Patient's skin is warm and dry. Respiratory: Reports shortness of breath Airway is patent Trachea midline Respiratory effort is even, unlabored, Respiratory pattern is regular, symmetrical, tachypnea Breath sounds with crackles bilaterally. Onset: The symptoms/episode began/occurred yesterday, the patient has mild shortness of breath. GI: Abdomen is round non-distended, Bowel sounds present X 4 quads. Abd is soft and non tender X 4 quads. : No deficits noted. No signs and/or symptoms were reported regarding the genitourinary system. Derm: Skin is intact, is healthy with good turgor, Skin is dry, Skin is normal, Skin temperature is warm. Musculoskeletal: Circulation, motion, and sensation intact. Range of motion: intact in all extremities. Historical: - Allergies: 20:25 Lisinopril; jw7 - PMHx: 20:25 Alcoholism; COPD; Hepatitis B (Hypertension); home 02 3LNC PRN; Hypertension; jw7 Osteoporosis; - PSHx: 20:25 Amputation of left index finger; jw7 - Immunization history:: Adult Immunizations up to date. - Infectious Disease History:: Denies. - Family history:: not pertinent. - Social history:: Smoking status: Patient reports the use of cigarette tobacco products. Screenin:30 [facility] ED Fall Risk Assessment (Adult) History of falling in the last 3 months, jw7 including since admission No falls in past 3 months (0 pts) Confusion or Disorientation No (0 pts) Intoxicated or Sedated No (0 pts) Impaired Gait No (0 pts) Mobility Assist Device Used No (0 pt) Altered Elimination No (0 pt) Score/Fall Risk Level 0 - 2 = Low Risk Oriented to surroundings, Maintained a safe environment, Educated pt \T\ family on fall prevention, incl call for assistance when getting out of bed. Abuse screen: Denies threats or abuse. Denies injuries from another. Nutritional screening: No deficits noted. Tuberculosis screening: No symptoms or risk factors identified. Assessment: 20:30 General: See Triage Assessment. jw7 20:30 Cardiovascular: Rhythm is sinus rhythm. jw7 Vital Signs: 20:25 BP 127 / 76; Pulse 97; Resp 20 S; Pulse Ox 97% on R/A; jw7 21:00 BP 118 / 66; Pulse 90; Resp 20 S; Pulse Ox 95% on R/A; jw7 21:20 BP 129 / 62; Pulse 97; Resp 21 S; Pulse Ox 96% on R/A; jw7 ED Course: 20:11 Patient arrived in ED. jj6 20:13 Milton Reyes MD is Attending Physician. rt 20:25 Arm band placed on. jw7 20:29 Kaila Mckeon RN is Primary Nurse. jw7 20:30 Patient has correct armband on for positive identification. Bed in low position. Call jw7 light in reach. Side rails up X2. Provided Education on: use of call light. 20:45 Inserted saline lock: 22 gauge in right forearm, using aseptic technique. Blood jw7 collected. 21:00 XRAY Chest (1 view) In Process Unspecified. EDMS 21:32 Triage completed. jw7 21:35 No provider procedures requiring assistance completed. IV discontinued, intact, jw7 bleeding controlled, No redness/swelling at site. Pressure dressing applied. Administered Medications: 20:55 Drug: DuoNeb Nebulize (3:1) (2.5 mg - 0.5 mg) 3 ml Nebulizer once Route: Nebulizer; jw7 21:29 Follow up: Response: No adverse reaction; Marked relief of symptoms jw7 21:03 Drug: morphine IVP or IV 4 mg IVP once over 4 mins Route: IVP; Infused Over: 4 mins; jw7 Site: right forearm; 21:29 Follow up: Response: No adverse reaction; Marked relief of symptoms; Pain is decreased jw7 21:03 Drug: Ondansetron IVP 4 mg IVP once; over 2 minutes Route: IVP; Site: right forearm; jw7 21:29 Follow up: Response: No adverse reaction; Marked relief of symptoms jw7 Medication: 21:36 VIS not applicable for this client. jw7 Outcome: 21:28 Discharge ordered by . rt 21:36 Discharged to home ambulatory, jw7 21:36 Condition: stable 21:36 Discharge instructions given to patient, Instructed on discharge instructions, follow up and referral plans. Demonstrated understanding of instructions, follow-up care, 21:37 Patient left the ED. jw7 Signatures: Dispatcher [employer]FL Beatriz [id number] Kaila Mckeon, BRIGETTE RN jw7 Milton Reyes MD MD rt
[2024-04-10 22:18] LABS: Band Neutrophils 5 % (0-1); Blood Morphology Comment NOT SEEN (NOT SEEN); Differential Total Cells Count 100; Lymphocytes 22 % (15-42); Monocytes 5 % (0-10); Platelet Estimate ADEQ; Segmented Neutrophils 68 % (40-80)
[2024-04-10 22:33] VITALS: BP 129/62; O2SAT 96
== END 2024-04-10 21:37 | disposition home or self-care (01) ==
LOC: ER 20:10
DX: R06.02 Shortness of breath (principal); J44.9 Chronic obstructive pulmonary disease, unspecified; I10 Essential (primary) hypertension; M81.0 Age-related osteoporosis without current pathological fracture; F17.210 Nicotine dependence, cigarettes, uncomplicated; Z99.81 Dependence on supplemental oxygen
CPT/HCPCS: 85025; 80048; 36415; 83735; 80076; 84484; 83880; 71045; 94640; 96375; 96374; 99285; J7613; J7644; J2405

== ENCOUNTER 2024-04-13 17:52 | Emergency (ER) | payer OTHER ==
--- OUTSIDE RECORDS SUMMARY | 2024-04-13 17:57 | XMS REPORT | Continuity of Care Document ---
Author Name Unknown Address [address] [facility] [address] [place] [address] [facility] Address [address] [facility]. [address] [place] [address] Care Team Providers Care Hotel Administrative Assistant Name Role Phone GIRISH LOPEZIsaiasROMEO Primary Care Physician Unavailab DARIEN Posey Attending Clinician Unavailable MINNA ORTA Attending Clinician Unavailab WENDY High Attending Clinician Unava ilSHARATH Randolph Attending Clinician Unavailable PEG CAMP Attending Clinician Unavailable Peg Camp NP Attending Clinician [phone] URSULA QUINTANILLA Attending Clinician Unavailable DEMETRIA DAVENPORT Attending Clinician UnaDemetria Carver MD Attending Clinician + Christina Victoria Attending Clinician [phone] JAC NAVARRO Attending Clinician Unavailable Jac Navarro MD Attending Clinician [phone] TYLER ROWE Attending Clinician Unavailab MELINDA Boothe Attending Clinician Unavailable Melinda Maciel DO Attending Clinician [phone] CHRISTY HOLLIDAY Attending Clinician Unavailable Christy Holliday MD Attending Clinician [phone] MARIA ELENA CHAN Attending George akins Unavailable EDNISE SUNG Attending Clinician Unavailable KARLEY ADAMS Attending Clinician Unavailable JAC NAVARRO Admitting Clinician Unavailable MELINDA MACIEL Admitting Clinician Unavailable CHRISTY HOLLIDAY Admitting Clinician Unavailable Payers Payer Name Policy Type Policy Number Effective Date Expirati on Date Source [facility] VINOD LEE COPAY FOCUS 9 [id number] 2024 00[facility]00[id number] 2023 00:00:00 2024 00:00:00 [employer] [id number] 2023 00:00:00 [employer] 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 9 [id number] 2023 00:00:00 Problems Condition Name Condition Details Condition Category Status Onset Date Resolution Date Last Treatment Date Treating Clinician Comments Source Acute exacerbati on of chronic obstructiv e pulmonary disease (COPD) Acute exacerbati on of chronic obstructiv e pulmonary disease (COPD) Disease Active 03-24 00:00: 00 [facility] Obesity (BMI 30-39.9) Obesity (BMI 30-39.9) Disease Active 03-24 00:00: 00 [facility] Allergies, Adverse Reactions, Alerts Allergy Name Allergy Type Status Severity Reaction(s) Onset Date Inactive Date Treating Clinician Comments Source Lisinopr il Propensi ty to adverse reaction s Active Anaphylaxis 03-24 00:00: 00 [facility] LISINOPR IL DRUG INGREDI Active Anaphylaxis 03-24 00:00: 00 [facility] Social History Social Habit Start Date Stop Date Quantity Comments Source History of tobacco use Smokes tobacco daily [facility] of Social function 2024-02-08 00:00:00 2024-02-08 00:00:00 [facility] Alcohol intake 2024-02-08 00:00:00 2024-02-08 00:00:00 4.29 /d [facility] Exposure to SARS-CoV-2 (event) 2022-10-04 00:00:00 2022-10-14 10:25:00 Not sure [facility] Tobacco use and exposure 2018-03-24 00:00:00 2018-03-24 00:00:00 User of smokeless tobacco [facility] Tobacco Comment 2018-03-24 00:00:00 2018-03-24 00:00:00 trying to quit [facility] Sex Ass[birth year] At 1970 00:00:00 1970 00:00:00 [facility] Smoking Status Start Date Stop Date Source Smokes tobacco daily 2018-03-24 00:00:00 [facility] Medications Ordered Medication Name Filled Medication Name Start Date Stop Date Current Medication? Ordering Clinician Indication Dosage Frequency Signature (SIG) Comments Components Source ketorolac (TORADOL) injection 30 mg 02-17 03:15: 00 02-17 15:14 :00 Yes 30mg 30 mg, Slow IV Push, ONCE, 1 dose, On Thu02/17/24 at 2215, Routine [facility] methylpredn isolone sod succ (SOLU-MEDRO L) injection 125 mg 02-17 03:00: 00 02-17 14:59 :00 Yes 125mg 125 mg, Intravenou s, ONCE, 1 dose, On Thu02/17/24 at 2200, 2 mL [facility] ipratropium -albuteroL (DUONEB) 0.5 mg-3 mg(2.5 mg base)/3 mL nebulizer solution 6 mL 02-17 03:00: 00 02-17 14:59 :00 Yes 6mL 6 mL, Inhalation , ONCE NOW, 1 dose, On Thu02/17/24 at 2200, Rout[facility] NaCl 0.9% (NS) bolus infusion 1,000 mL 02-17 03:00: 00 02-17 14:59 :00 Yes 1000mL at 999 mL/hr, 1,000 mL, IV Infusion, ONCE, 1 dose, On Thu02/17/24 at 2200, [facility] triamterene -hydrochlor othiazide 37.5-25 mg per capsule 02-16 20:52: 37 02-16 00:00 :00 No 1{capsu le} Take 1 capsule by mouth every morning. [facility] albuterol 5 mg/mL nebulizer solution 02-16 20:51: 42 02-16 00:00 :00 No 2.5mg Inhale 2.5 mg every 6 (six) hours as needed for Wheezing or Shortness of Breath. [facility] ketorolac (TORADOL) injection 15 mg 02-08 03:00: 00 02-08 02:21 :00 No 15mg 15 mg, Slow IV Push, ONCE, 1 dose, On Thu02/08/24 at 2200, Routine [facility] iopamidol (ISOVUE 370-500 mL) injection 100 mL 02-07 22:30: 00 02-07 22:30 :00 Yes [id number] 100mL 100 mL, Intravenou s, ONCE, 1 dose, On Thu02/08/24 at 1730, Routine [facility] ipratropium -albuteroL (DUONEB) 0.5 mg-3 mg(2.5 mg base)/3 mL nebulizer solution 3 mL 02-07 21:15: 00 02-07 20:45 :00 No 3mL 3 mL, Inhalation , ONCE, 1 dose, On Thu02/08/24 at 1615, Routine [facility] morpHINE (2 mg/mL) injection 4 mg 02-07 21:15: 00 02-07 20:27 :00 No 4mg 4 mg, Slow IV Push, ONCE, 1 dose, On Thu02/08/24 at 1615, STAT [facility] ondansetron (ZOFRAN (PF)) injection 4 mg 02-07 21:15: 00 02-07 20:22 :00 No 4mg 4 mg, Slow IV Push, ONCE, 1 dose, On Thu02/08/24 at 1615, [facility] magnesium sulfate in water 2 gram/50 mL (4 %) infusion 2 g 02-07 21:00: 00 02-07 21:30 :00 No 2g 2 g, IV Piggyback, Administer over 60 Minutes, ONCE, 1 dose, On Thu02/08/24 at 1600, Rout[facility] ipratropium -albuteroL (DUONEB) 0.5 mg-3 mg(2.5 mg base)/3 mL nebulizer solution 3 mL 02-07 20:30: 00 02-07 19:31 :00 No 3mL 3 mL, Inhalation , ONCE, 1 dose, On Thu02/08/24 at 1530, [facility] HYDROcodone -acetaminop hen (NORCO) 10-325 mg tablet 1 tablet 01-13 13:15: 00 01-13 12:15 :00 No 1{tbl} 1 tablet, Oral, ONCE, 1 dose, On Thu01/14/24 at 0715, [facility] ipratropium -albuteroL (DUONEB) 0.5 mg-3 mg(2.5 mg base)/3 mL nebulizer solution 3 mL 01-13 13:00: 00 01-13 11:53 :00 No 3mL 3 mL, Inhalation , ONCE NOW, 1 dose, On Thu01/14/24 at 0700, [facility] ondansetron (ZOFRAN (PF)) injection 4 mg 01-13 11:30: 00 01-13 11:37 :00 No 4mg 4 mg, Slow IV Push, ONCE, 1 dose, On Thu01/14/24 at 0530, [facility] morpHINE (4 mg/mL) injection 4 mg 01-13 11:30: 00 01-13 11:37 :00 No 4mg 4 mg, Slow IV Push, ONCE, 1 dose, On Thu01/14/24 at 0530, STAT [facility] azithromyci n (ZITHROMAX Z-PORTER) 250 mg tablet 01-13 00:00: 00 02-16 00:00 :00 No [id number] Take 500 mg on day 1 then 250 mg on days 2-5 [facility] predniSONE 20 mg tablet 01-13 00:00: 00 02-16 00:00 :00 No [id number] Take 1 po tid x 2 days, then take 1 po bid x 3 days, then take 1 po daily x 3 days. [facility] acetaminoph en-codeine 300-30 mg tablet 01-13 00:00: 00 01-21 04:59 :00 Yes [id number] 1{tbl} Take 1 tablet by mouth every 6 (six) hours as needed for Pain (scale 7-10) (severe cough) for up to 7 days. Indication s: acute pain, severe cough [facility] clonazePAM 1 mg tablet 12-26 00:00: 00 02-16 00:00 :00 No 1mg Take 1 tablet by mouth at bedtime as needed for Other (anxiety). [facility] KCL (KLOR-CON M20) tablet 40 mEq 12-23 05:00: 00 12-23 05:07 :00 No 40meq 40 mEq, Oral, ONCE, 1 dose, On Thu12/22/23 at 2300, [facility] NaCl 0.9% (NS) bolus infusion 1,000 mL 12-23 05:00: 00 12-23 05:09 :00 No 1000mL at 999 mL/hr, 1,000 mL, IV Infusion, ONCE, 1 dose, On Thu12/22/23 at 2300, [facility] ondansetron (ZOFRAN (PF)) injection 4 mg 12-23 04:30: 00 12-23 04:24 :00 No 4mg 4 mg, Slow IV Push, ONCE, 1 dose, On Thu12/22/23 at 2230, [facility] maalox:diph enhydrAMINE :lidocaine 2 % viscous 1:1:1 (FIRST-MOUT HWASH BLM) oral suspension 15 mL 12-23 04:15: 00 12-23 04:17 :00 No 15mL 15 mL, Oral, ONCE, 1 dose, On Thu12/22/23 at 2215, Rout[facility] famotidine (PEPCID (PF)) injection 20 mg 12-23 04:15: 00 12-23 04:15 :00 No 20mg 20 mg, Slow IV Push, ONCE, 1 dose, On Thu12/22/23 at 2215, [facility] HYDROcodone -acetaminop hen (NORCO) 10-325 mg tablet 1 tablet 12-22 04:30: 00 12-22 16:29 :00 No 1{tbl} 1 tablet, Oral, ONCE, 1 dose, On Thu12/21/23 at 2230, Rout[facility] pantoprazol e (PROTONIX) 80 mg in NaCl 0.9% (NS) 20 mL syringe 12-22 04:15: 00 12-22 16:14 :00 No 80mg 80 mg, IV Push, ONCE, 1 dose, On Thu12/21/23 at 2215, Administer over 2 Minutes, 20 mL [facility] iopamidol (ISOVUE 370-500 mL) injection 100 mL 12-22 03:30: 00 12-22 03:30 :00 No [id number] 100mL 100 mL, Intravenou s, ONCE, 1 dose, On Thu12/21/23 at 2130, Routine [facility] morpHINE (4 mg/mL) injection 4 mg 12-22 03:30: 00 12-22 02:16 :00 No 4mg 4 mg, Slow IV Push, ONCE, 1 dose, On Thu12/21/23 at 2130, Routine [facility] ondansetron (ZOFRAN (PF)) injection 4 mg 12-22 02:45: 00 12-22 02:02 :00 No 4mg 4 mg, Slow IV Push, ONCE, 1 dose, On Thu12/21/23 at 2045, Routine [facility] hydrocortis one 25 mg suppository 12-22 00:00: 00 Yes [id number] 25mg Insert 1 Suppositor y into rectum 2 (two) times daily as needed for Rectal itching/pa in. [facility] ondansetron 4 mg disintegrat ing tablet 12-22 00:00: 00 02-16 00:00 :00 No [id number] 4mg Take 1 tablet by mouth every 8 (eight) hours as needed for Nausea and Vomiting (N/V). [facility] amoxicillin -clavulanat e 875-125 mg per tablet 12-22 00:00: 00 01-02 05:59 :00 No [id number] 1{tbl} Take 1 tablet by mouth every 12 (twelve) hours for 10 days. [facility] methylpredn isolone sod succ (SOLU-MEDRO L) injection 125 mg 2022-11 08:45: 00 10-27 20:44 :00 No 125mg 125 mg, Slow IV Push, ONCE, 1 dose, On Thu10/27/23 at 0245, STAT [facility] ipratropium -albuteroL (DUONEB) 0.5 mg-3 mg(2.5 mg base)/3 mL nebulizer solution 3 mL 2022-11 08:45: 00 10-27 20:44 :00 No 3mL 3 mL, Inhalation , ONCE NOW, 1 dose, On Thu10/27/23 at 0245, [facility] diazePAM (VALIUM) tablet 10 mg 2022-11 07:45: 00 10-27 19:44 :00 No 10mg 10 mg, Oral, ONCE, 1 dose, On Thu10/27/23 at 0145, [facility] levoFLOXaci n (LEVAQUIN) tablet 500 mg 2022-11 07:45: 00 10-27 19:44 :00 No 500mg 500 mg, Oral, ONCE, 1 dose, On Thu10/27/23 at 0145, [facility]
Re ason for Anti-Infec tive: Empiric Non-Surgic al Prophylaxi s
Durat ion of therapy: Once (ED) [facility] iopamidol (ISOVUE 370-500 mL) injection 70 mL 2021-11 18:30: 00 10-14 18:30 :00 No [id number] 70mL 70 mL, Intravenou s, ONCE, 1 dose, On Thu10/14/22 at 1230, Rout[facility] methylpredn isolone sod succ (SOLU-MEDRO L) injection 125 mg 2021-11 18:00: 00 Yes 125mg 125 mg, Intravenou s, Q6H, First dose on Thu10/14/22 at 1200, Until Discontinu ed, Routine [facility] furosemide (LASIX) injection 40 mg 2021-11 17:45: 00 10-14 16:39 :00 No 40mg 40 mg, IV Push, ONCE, 1 dose, On Thu10/14/22 at 1145, [facility] ipratropium -albuteroL (DUONEB) 0.5 mg-3 mg(2.5 mg base)/3 mL nebulizer solution 3 mL 2021-11 17:30: 00 10-14 16:41 :00 No 3mL 3 mL, Inhalation , ONCE, 1 dose, On Thu10/14/22 at 1130, Rout[facility] FENTanyl PF (SUBLIMAZE (PF)) injection 50 mcg 2021-11 16:45: 00 10-14 16:39 :00 No 50ug 50 mcg, Slow IV Push, ONCE, 1 dose, On Thu10/14/22 at 1045, Routine [facility] levoFLOXaci n 750 mg tablet 2021-11 2-06 00:00: 00 02-16 00:00 :00 No [id number] 750mg Take 1 tablet by mouth every 24 (twenty-fo ur) hours. [facility] HYDROcodone -acetaminop hen (NORCO) 10-325 mg tablet 1 tablet 03-12 12:15: 00 03-12 11:21 :00 No 1{tbl} 1 tablet, Oral, ONCE, 1 dose, On Thu03/12/22 at 0715, Routine [facility] HYDROcodone -acetaminop hen 10-325 mg tablet 03-12 00:00: 00 03-20 04:59 :00 No [id number] 1{tbl} Take 1 tablet by mouth every 6 (six) hours as needed for Pain (scale 7-10) for up to 7 days. Indication s: acute pain [facility] ipratropium -albuteroL (DUONEB) 0.5 mg-3 mg(2.5 mg base)/3 mL nebulizer solution 3 mL 02-20 13:00: 00 Yes 3mL 3 mL, Inhalation , QID, First dose on Thu02/20/22 at 0800, Until Discontinu ed, Routine [facility] methylPREDN ISolone sod succ (SOLU-MEDRO L (PF)) injection 40 mg 02-20 11:45: 00 02-20 10:43 :00 No 40mg 40 mg, Intravenou s, ONCE, 1 dose, On Thu02/20/22 at 0645, STAT [facility] foLIC acid (FOLATE) tablet 1 mg 02-20 11:45: 00 02-20 10:41 :00 No 1mg 1 mg, Oral, ONCE, 1 dose, On Thu02/20/22 at 0645, [facility] thiamine (VITAMIN B1) injection 100 mg 02-20 11:45: 00 02-20 10:43 :00 No 100mg 100 mg, Intravenou s, ONCE, 1 dose, On Thu02/20/22 at 0645, [facility] LORazepam (ATIVAN) injection 2 mg 02-20 11:45: 00 02-20 10:42 :00 No 2mg 2 mg, Slow IV Push, ONCE, 1 dose, On Kym 02/20/22 at 0645, STAT [facility] ipratropium -albuteroL (DUONEB) 0.5 mg-3 mg(2.5 mg base)/3 mL nebulizer solution 3 mL 02-20 10:30: 00 02-20 09:34 :00 No 3mL 3 mL, Inhalation , ONCE, 1 dose, On Kym 02/20/22 at 0530, Routine [facility] albuterol 90 mcg/actuati on inhaler 02-20 00:00: 00 Yes [id number] 2{puff} Inhale 2 Puffs every 4 (four) hours as needed for Wheezing or Shortness of Breath. [facility] triamterene -hydrochlor othiazid 37.5-25 mg tablet 02-20 00:00: 00 Yes [id number] 1{tbl} Take 1 tablet by mouth daily. [facility] chlordiazeP OXIDE 25 mg capsule 02-20 00:00: 00 Yes [id number] 25mg Take 1 capsule by mouth every 6 (six) hours as needed for Anxiety, Agitation, Heart Rate => 100 or Detox. [facility] predniSONE 10 mg tablet 02-20 00:00: 00 02-16 00:00 :00 No [id number] TAKE ONE TABLET BY MOUTH DAILY [facility] albuterol 2.5 mg /3 mL (0.083 %) nebulizer solution 02-20 00:00: 00 02-16 00:00 :00 No [id number] 2.5mg Inhale 3 mL every 4 (four) hours. May also nebulize one extra every 6 hours. [facility] budesonide- formoteroL 160-4.5 mcg/actuati on inhaler 02-20 00:00: 00 02-16 00:00 :00 No [id number] 2{puff} Inhale 2 Puffs 2 (two) times daily. [facility] albuterol 5 mg/mL nebulizer solution 07-16 14:02: 20 Yes 2.5mg Inhale 2.5 mg every 6 (six) hours as needed for Wheezing or Shortness of Breath. [facility] budesonide- formoterol 160-4.5 mcg/actuati on inhaler 07-16 00:00: 00 Yes 2{puff} Inhale 2 Puffs 2 (two) times daily. [facility] albuterol 2.5 mg /3 mL (0.083 %) nebulizer solution 07-16 00:00: 00 Yes 2.5mg Inhale 3 mL every 4 (four) hours as needed for Wheezing or Shortness of Breath. [facility] triamterene -hydrochlor othiazide 37.5-25 mg per capsule 03-26 16:32: 14 Yes 1{capsu le} Take 1 capsule by mouth every morning. [facility] amLODIPine 10 mg tablet 03-26 16:32: 14 Yes 10mg Take 10 mg by mouth at bedtime. [facility] gabapentin 100 mg capsule 03-26 16:32: 14 Yes 100mg Take 100 mg by mouth 2 (two) times daily as needed ([facility] pain). [facility] foLIC acid 1 mg tablet 03-26 16:32: 14 Yes 1mg Take 1 mg by mouth daily. [facility] budesonide- formoterol 160-4.5 mcg/actuati on inhaler 03-26 00:00: 00 02-16 00:00 :00 No 2{puff} Inhale 2 Puffs 2 (two) times daily. [facility] Immunizations Ordered Immunization Name Filled Immunization Name Date Status Comments Source SARS-COV-2 COVID-19 PFIZER VACCINE 2021-02-03 00:00:00 Completed [facility] SARS-COV-2 COVID-19 PFIZER VACCINE 2021-02-03 00:00:00 Completed [facility] SARS-COV-2 COVID-19 PFIZER VACCINE 2021-02-03 00:00:00 Completed [facility] SARS-COV-2 COVID-19 PFIZER VACCINE 2021-01-13 00:00:00 Completed [facility] SARS-COV-2 COVID-19 PFIZER VACCINE 2021-01-13 00:00:00 Completed [facility] SARS-COV-2 COVID-19 PFIZER VACCINE 2021-01-13 00:00:00 Completed [facility] Pneumococcal Polysaccharide, PPSV23 (PNEUMOVAX) 2018-03-26 00:00:00 Completed [facility] Influenza Virus Vaccine Quad IM 3+ YRS 2018-03-26 00:00:00 Completed [facility] Pneumococcal Polysaccharide, PPSV23 (PNEUMOVAX) 2018-03-26 00:00:00 Completed [facility] Influenza Virus Vaccine Quad IM 3+ YRS 2018-03-26 00:00:00 Completed [facility] Pneumococcal Polysaccharide, PPSV23 (PNEUMOVAX) 2018-03-26 00:00:00 Completed [facility] Influenza Virus Vaccine Quad IM 3+ YRS 2018-03-26 00:00:00 Completed [facility] Pneumococcal Polysaccharide, PPSV23 (PNEUMOVAX) Unknown Completed [facility] Influenza Virus Vaccine Quad IM 3+ YRS Unknown Completed [facility] SARS-COV-2 COVID-19 PFIZER VACCINE Unknown Completed [facility] SARS-COV-2 COVID-19 PFIZER VACCINE Unknown Completed [facility] Pneumococcal Polysaccharide, PPSV23 (PNEUMOVAX) Unknown Completed [facility] Influenza Virus Vaccine Quad IM 3+ YRS Unknown Completed [facility] SARS-COV-2 COVID-19 PFIZER VACCINE Unknown Completed [facility] SARS-COV-2 COVID-19 PFIZER VACCINE Unknown Completed [facility] Pneumococcal Polysaccharide, PPSV23 (PNEUMOVAX) Unknown Completed [facility] Influenza Virus Vaccine Quad IM 3+ YRS Unknown Completed [facility] SARS-COV-2 COVID-19 PFIZER VACCINE Unknown Completed [facility] SARS-COV-2 COVID-19 PFIZER VACCINE Unknown Completed [facility] Pneumococcal Polysaccharide, PPSV23 (PNEUMOVAX) Unknown Completed [facility] Influenza Virus Vaccine Quad IM 3+ YRS Unknown Completed [facility] SARS-COV-2 COVID-19 PFIZER VACCINE Unknown Completed [facility] SARS-COV-2 COVID-19 PFIZER VACCINE Unknown Completed [facility] Pneumococcal Polysaccharide, PPSV23 (PNEUMOVAX) Unknown Completed [facility] Influenza Virus Vaccine Quad IM 3+ YRS Unknown Completed [facility] SARS-COV-2 COVID-19 PFIZER VACCINE Unknown Completed [facility] SARS-COV-2 COVID-19 PFIZER VACCINE Unknown Completed [facility] Pneumococcal Polysaccharide, PPSV23 (PNEUMOVAX) Unknown Completed [facility] Influenza Virus Vaccine Quad IM 3+ YRS Unknown Completed [facility] SARS-COV-2 COVID-19 PFIZER VACCINE Unknown Completed [facility] SARS-COV-2 COVID-19 PFIZER VACCINE Unknown Completed [facility] Pneumococcal Polysaccharide, PPSV23 (PNEUMOVAX) Unknown Completed [facility] Influenza Virus Vaccine Quad IM 3+ YRS Unknown Completed [facility] SARS-COV-2 COVID-19 PFIZER VACCINE Unknown Completed [facility] SARS-COV-2 COVID-19 PFIZER VACCINE Unknown Completed [facility] Pneumococcal Polysaccharide, PPSV23 (PNEUMOVAX) Unknown Completed [facility] Influenza Virus Vaccine Quad IM 3+ YRS Unknown Completed [facility] SARS-COV-2 COVID-19 PFIZER VACCINE Unknown Completed [facility] SARS-COV-2 COVID-19 PFIZER VACCINE Unknown Completed [facility] Vital Signs Vital Name Observation Time Observation Value Comments S ource Systolic blood pressure 2024-02-18 01:57:00 134 mm[Hg] [facility] Diastolic blood pressure 2024-02-18 01:57:00 94 mm[Hg] [facility] Body height 2024-02-18 01:57:00 162.6 cm [facility] Body weight 2024-02-18 01:57:00 79.379 kg [facility] BMI 2024-02-18 01:57:00 30.04 kg/m2 [facility] Heart rate 2024-02-18 01:53:00 110 /min [facility] Body temperature 2024-02-18 01:53:00 36.61 Debbie [facility] Respiratory rate 2024-02-18 01:53:00 24 /min [facility] Oxygen saturation in Arterial blood by Pulse oximetry 2024-02-18 01:53:00 93 /min [facility] Systolic blood pressure 2024-02-09 01:54:05 150 mm[Hg] [facility] Diastolic blood pressure 2024-02-09 01:54:05 91 mm[Hg] [facility] Heart rate 2024-02-09 01:54:05 87 /min [facility] Respiratory rate 2024-02-09 01:54:05 17 /min [facility] Oxygen saturation in Arterial blood by Pulse oximetry 2024-02-09 01:54:05 93 /min [facility] Body temperature 2024-02-09 01:45:00 36.67 Debbie [facility] Body height 2024-02-09 01:45:00 162.6 cm [facility] Body weight 2024-02-09 01:45:00 81.194 kg [facility] BMI 2024-02-09 01:45:00 30.73 kg/m2 [facility] Respiratory rate 2024-02-08 21:00:00 18 /min [facility] Oxygen saturation in Arterial blood by Pulse oximetry 2024-02-08 21:00:00 96 /min [facility] Systolic blood pressure 2024-02-08 20:27:00 164 mm[Hg] [facility] Diastolic blood pressure 2024-02-08 20:27:00 90 mm[Hg] [facility] Heart rate 2024-02-08 20:27:00 83 /min [facility] Body temperature 2024-02-08 19:12:00 36.83 Debbie [facility] Body height 2024-02-08 19:12:00 162.6 cm [facility] Body weight 2024-02-08 19:12:00 81.194 kg [facility] BMI 2024-02-08 19:12:00 30.73 kg/m2 [facility] Heart rate 2024-01-14 12:15:00 98 /min [facility] Body temperature 2024-01-14 12:15:00 36.56 Debbie [facility] Respiratory rate 2024-01-14 12:15:00 14 /min [facility] Oxygen saturation in Arterial blood by Pulse oximetry 2024-01-14 12:15:00 95 /min [facility] Systolic blood pressure 2024-01-14 12:00:00 140 mm[Hg] [facility] Diastolic blood pressure 2024-01-14 12:00:00 90 mm[Hg] [facility] Body height 2024-01-14 10:51:00 162.6 cm [facility] Body weight 2024-01-14 10:51:00 81.194 kg [facility] BMI 2024-01-14 10:51:00 30.73 kg/m2 [facility] Systolic blood pressure 2023-12-23 05:02:00 133 mm[Hg] [facility] Diastolic blood pressure 2023-12-23 05:02:00 84 mm[Hg] [facility] Heart rate 2023-12-23 05:02:00 78 /min [facility] Body temperature 2023-12-23 05:02:00 36.17 Debbie [facility] Respiratory rate 2023-12-23 05:02:00 17 /min [facility] Oxygen saturation in Arterial blood by Pulse oximetry 2023-12-23 05:02:00 91 /min [facility] Body height 2023-12-23 03:45:00 162.6 cm [facility] Body weight 2023-12-23 03:45:00 81.194 kg [facility] BMI 2023-12-23 03:45:00 30.73 kg/m2 [facility] Systolic blood pressure 2023-12-22 02:08:00 143 mm[Hg] [facility] Diastolic blood pressure 2023-12-22 02:08:00 92 mm[Hg] [facility] Heart rate 2023-12-22 02:08:00 81 /min [facility] Respiratory rate 2023-12-22 02:08:00 13 /min [facility] Oxygen saturation in Arterial blood by Pulse oximetry 2023-12-22 02:08:00 95 /min [facility] Body temperature 2023-12-22 01:33:00 36.72 Debbie [facility] Body height 2023-12-22 01:33:00 162.6 cm [facility] Body weight 2023-12-22 01:33:00 81.239 kg [facility] BMI 2023-12-22 01:33:00 30.74 kg/m2 [facility] Systolic blood pressure 2023-11-11 02:00:00 127 mm[Hg] [facility] Diastolic blood pressure 2023-11-11 02:00:00 87 mm[Hg] [facility] Heart rate 2023-11-11 02:00:00 79 /min [facility] Respiratory rate 2023-11-11 02:00:00 20 /min [facility] Oxygen saturation in Arterial blood by Pulse oximetry 2023-11-11 02:00:00 98 /min [facility] Body temperature 2023-11-11 01:31:00 36.28 Debbie [facility] Body height 2023-11-11 01:31:00 162.6 cm [facility] Body weight 2023-11-11 01:31:00 79.379 kg [facility] BMI 2023-11-11 01:31:00 30.04 kg/m2 [facility] Systolic blood pressure 2023-10-27 06:54:00 133 mm[Hg] [facility] Diastolic blood pressure 2023-10-27 06:54:00 94 mm[Hg] [facility] Heart rate 2023-10-27 06:54:00 95 /min [facility] Body temperature 2023-10-27 06:54:00 36.44 Debbie [facility] Respiratory rate 2023-10-27 06:54:00 22 /min [facility] Body height 2023-10-27 06:54:00 162.6 cm [facility] Body weight 2023-10-27 06:54:00 78.472 kg [facility] BMI 2023-10-27 06:54:00 29.70 kg/m2 [facility] Oxygen saturation in Arterial blood by Pulse oximetry 2023-10-27 06:54:00 94 /min [facility] Systolic blood pressure 2022-10-14 19:43:00 111 mm[Hg] [facility] Diastolic blood pressure 2022-10-14 19:43:00 74 mm[Hg] [facility] Heart rate 2022-10-14 19:43:00 98 /min [facility] Body temperature 2022-10-14 19:43:00 36.39 Debbie [facility] Respiratory rate 2022-10-14 19:43:00 22 /min [facility] Oxygen saturation in Arterial blood by Pulse oximetry 2022-10-14 19:43:00 94 /min [facility] Body height 2022-10-14 16:13:00 162.6 cm [facility] Body weight 2022-10-14 16:13:00 81.647 kg [facility] BMI 2022-10-14 16:13:00 30.90 kg/m2 [facility] Systolic blood pressure 2022-03-12 10:13:00 119 mm[Hg] [facility] Diastolic blood pressure 2022-03-12 10:13:00 75 mm[Hg] [facility] Heart rate 2022-03-12 10:13:00 105 /min [facility] Body temperature 2022-03-12 10:13:00 37.28 Debbie [facility] Respiratory rate 2022-03-12 10:13:00 19 /min [facility] Body height 2022-03-12 10:13:00 162.6 cm [facility] Body weight 2022-03-12 10:13:00 99.791 kg [facility] BMI 2022-03-12 10:13:00 37.76 kg/m2 [facility] Oxygen saturation in Arterial blood by Pulse oximetry 2022-03-12 10:13:00 96 /min [facility] Systolic blood pressure 2022-02-20 11:57:00 155 mm[Hg] [facility] Diastolic blood pressure 2022-02-20 11:57:00 88 mm[Hg] [facility] Heart rate 2022-02-20 11:57:00 105 /min [facility] Respiratory rate 2022-02-20 11:57:00 18 /min [facility] Oxygen saturation in Arterial blood by Pulse oximetry 2022-02-20 11:57:00 100 /min [facility] Body temperature 2022-02-20 09:25:00 37 Debbie [facility] Body height 2022-02-20 09:25:00 162.6 cm [facility] Body weight 2022-02-20 09:25:00 96.163 kg [facility] BMI 2022-02-20 09:25:00 36.39 kg/m2 [facility] Procedures Procedure Date / Time Performed Performing Clinician Source AC PANEL 20 + LACTIC ACID 2024-02-08 20:47:00 Christina Villarreal [facility] XR CHEST 1 VW 2024-02-08 19:47:00 Chirstina Villarreal [facility] URINALYSIS 2024-02-08 19:36:00 [facility] MAGNESIUM 2024-02-08 19:25:00 [facility] TROPONIN I 2024-02-08 19:25:00 [facility] COMP. METABOLIC PANEL ([id number]) 2024-02-08 19:25:00 Christina Villarreal [facility] ETHANOL 2024-02-08 19:25:00 [facility] CBC WITH DIFF 2024-02-08 19:25:00 Christina Villarreal [facility] N-TERMINAL PRO-BNP 2024-02-08 19:25:00 Christina Villarreal [facility] EKG-12 LEAD 2024-01-14 12:00:51 Jac Navarro [facility] LIPASE 2024-01-14 11:11:00 Jac Navarro [facility] TROPONIN I 2024-01-14 11:11:00 Jac Navarro [facility] COMP. METABOLIC PANEL ([id number]) 2024-01-14 11:11:00 Jac Navarro [facility] ETHANOL 2024-01-14 11:11:00 Jac Navarro [facility] CBC WITH DIFF 2024-01-14 11:11:00 [facility] N-TERMINAL PRO-BNP 2024-01-14 11:11:00 Jac Navarro [facility] COVID-19 (ID NOW RAPID TESTING) 2024-01-14 11:11:00 Jac Navarro [facility] CONSENT/REFUSAL FOR DIAGNOSIS AND TREATMENT 2024-01-14 10:44:32 Doctor Unassigned, Dunreith [facility] LIPASE 2023-12-23 04:17:00 Tyler Rowe Un [facility] COMP. METABOLIC PANEL ([id number]) 2023-12-23 04:17:00 Tyler Rowe [facility] CBC WITH DIFF 2023-12-23 04:17:00 [facility] 2023-12-23 04:17:00 Tyler Rowe Un [facility] CONSENT/REFUSAL FOR DIAGNOSIS AND TREATMENT 2023-12-23 03:40:32 Doctor Unassigned, Dunreith [facility] CT ABDOMEN PELVIS W CONTRAST 2023-12-22 02:31:05 Melinda Maciel [facility] LIPASE 2023-12-22 01:58:00 Melinda Maciel [facility] COMP. METABOLIC PANEL ([id number]) 2023-12-22 01:58:00 Melinda Maciel [facility] ETHANOL 2023-12-22 01:58:00 Melinda Maciel [facility] CBC WITH DIFF 2023-12-22 01:58:00 Melinda Maciel [facility] PROTHROMBIN TIME / INR 2023-12-22 01:58:00 Wali Maciel [facility] URINALYSIS 2023-12-22 01:58:00 [facility] CONSENT/REFUSAL FOR DIAGNOSIS AND TREATMENT 2023-12-22 01:19:14 Doctor Unassigned, Dunreith [facility] NOTICE OF PRIVACY PRACTICES 2023-11-11 01:24:24 Doctor Unassigned, Dunreith [facility] CONSENT/REFUSAL FOR DIAGNOSIS AND TREATMENT 2023-11-11 01:23:54 Doctor Unassigned, Dunreith [facility] COVID-19 (ID NOW RAPID TESTING) 2023-10-27 07:09:00 Jac Navarro [facility] NOTICE OF PRIVACY PRACTICES 2023-10-27 06:49:48 Doctor Unassigned, Dunreith [facility] CONSENT/REFUSAL FOR DIAGNOSIS AND TREATMENT 2023-10-27 06:47:40 Doctor Unassigned, Dunreith [facility] CT ABDOMEN PELVIS W CONTRAST 2022-10-14 17:33:00 Melinda Maciel [facility] XR CHEST 1 VW 2022-10-14 17:10:37 Singer [facility] TROPONIN I 2022-10-14 16:37:00 Mel[facility] COMP. METABOLIC PANEL ([id number]) 2022-10-14 16:37[facility] 2022-10-14 16:37:00 Melinda Maciel [facility] PROTHROMBIN TIME / INR 2022-10-14 16:37:00 [facility] 2022-10-14 16:37:00 Mel[facility] N-TERMINAL PRO-BNP 2022-10-14 16:37:00 Melinda Maciel [facility] CONSENT/REFUSAL FOR DIAGNOSIS AND TREATMENT 2022-10-14 15:56:36 Doctor Unassigned, Dunreith [facility] CONSENT/REFUSAL FOR DIAGNOSIS AND TREATMENT 2022-03-12 10:03:12 Doctor Unassigned, Dunreith [facility] XR CHEST 1 VW 2022-02-20 09:59:00 Christy Holliday [facility] LIPASE 2022-02-20 09:30:00 Christy Holliday [facility] TROPONIN I 2022-02-20 09:30:00 Christy Holliday [facility] COMP. METABOLIC PANEL (48656) 2022-02-20 09:30:00 Christy Holliday [facility] CBC WITH DIFF 2022-02-20 09:30:00 Christy Holliday [facility] N-TERMINAL PRO-BNP 2022-02-20 09:30:00 Christy Holliday [facility] NOTICE OF PRIVACY PRACTICES 2022-02-20 09:15:02 Doctor Unassigned, Dunreith [facility] CONSENT/REFUSAL FOR DIAGNOSIS AND TREATMENT 2022-02-20 09:14:47 Doctor Unassigned, Dunreith [facility] Encounters Start Date/Time End Date/Time Encounter Type Admission Type Attending [facility] Care Department Encounter ID Source 2024-04-14 16:30:00 2024-04-14 16:30:00 Outpatient DARIEN LOBO [id number] [facility] 2024-04-12 11:00:00 2024-04-12 11:00:00 Outpatient MINNA ORTA [id number] [facility] 2024-04-12 11:00:00 2024-04-12 11:00:00 Outpatient WENDY BROWNLEE [id number] [facility]12 00:00:00 2024-04-12 00:00:00 Outpatient SHARATH HALEY [id number] [facility] 2024-04-05 11:30:00 2024-04-05 11:30:00 Outpatient DARIEN LOBO [id number] [facility] 2024-04-05 00:00:00 2024-04-05 00:00:00 Outpatient DARIEN LOBO [id number] [facility] 2024-03-28 00:00:00 2024-03-28 00:00:00 Outpatient DARIEN LOBO [id number] [facility] 2024-03-15 08:30:00 2024-03-15 08:30:00 Outpatient WENDY BROWNLEE MARIA ELENA [id number] [facility] 2024-02-17 20:58:00 2024-02-17 21:44:00 Emergency X PEG CAMP [facility] ERT [id number] [facility] 2024-02-17 20:58:00 2024-02-17 21:44:00 Emergency Peg Camp [facility] 1.840.114 350.1.13.10 4.2.7.2.686 [id number] [id number] [facility] 2024-02-09 13:10:00 2024-02-09 15:14:00 Emergency URSULA SANTOS [facility] [id number] [facility] 2024-02-08 20:38:00 2024-02-08 21:40:00 Emergency X DEMETRIA DAVENPORT [facility] ERT [id number] [facility] 2024-02-08 20:38:00 2024-02-08 21:40:00 Emergency AuDemetria breen [facility] 1.2.840.114 350.1.13.10 4.2.7.2.686 [id number] 084 [id number] [facility] 2024-02-08 14:08:00 2024-02-08 17:06:00 Emergency Christina Villarreal [facility] 1.2.840.114 350.1.13.10 4.2.7.2.686 [id number] [facility] 2024-01-14 04:46:00 2024-01-14 06:23:00 Emergency X JAC NAVARRO [facility] ERT [id number] [facility] 2024-01-14 04:46:00 2024-01-14 06:23:00 Emergency Jac Navarro [facility] 1.2.840.114 350.1.13.10 4.2.7.2.686 [id number] [id number] [facility] 2023-12-22 21:51:00 2023-12-22 23:13:00 Emergency X TYLER ROWE [facility] ERT [id number] [facility] 2023-12-22 21:51:00 2023-12-22 23:13:00 Emergency Tyler Rowe [facility] 1.2.840.114 350.1.13.10 4.2.7.2.686 [id number] [id number] [facility] 2023-12-21 19:36:00 2023-12-21 21:52:00 Emergency X MELINDA MACIEL [facility] ERT [id number] [facility] 2023-12-21 19:36:00 2023-12-21 21:52:00 Emergency Melinda Maciel [facility] 1.2.840.114 350.1.13.10 4.2.7.2.686 [id number] 084 [id number] [facility] 2023-11-10 19:29:00 2023-11-10 20:14:00 Emergency X CHRISTY HOLLIDAY [facility] ERT [id number] [facility] 2023-11-10 19:29:00 2023-11-10 20:14:00 Emergency Christy Holliday [facility] 1.2.840.114 350.1.13.10 4.2.7.2.686 [id number] [id number] [facility] 2023-10-27 00:49:00 2023-10-27 01:41:00 Emergency X JAC NAVARRO [facility] ERT [id number] [facility] 2023-10-27 00:49:00 2023-10-27 01:41:00 Emergency Jac Navarro [facility] 1..840.114 350.1.13.10 4.2.7.2.686 [id number] [facility] 2023-07-15 00:00:00 2023-07-15 00:00:00 Outpatient DARIEN LOBO [id number] [facility] 2023-06-16 11:30:00 2023-06-16 11:30:00 Outpatient DARIEN LOBO [id number] [facility] 2023-05-18 00:00:00 2023-05-18 00:00:00 Outpatient GROUPMARIA ELENA [id number] [facility] 2022-10-14 10:07:00 2022-10-14 14:39:00 Emergency X MELINDA MACIEL [facility] ERT [id number] [facility] 2022-10-14 10:07:00 2022-10-14 14:39:00 Emergency MacielMelinda [facility] ..840.114 350.1.13.10 4.2.7.2.686 [id number] [id number] [facility] 2022-03-12 05:15:00 2022-03-12 06:41:00 Emergency X CHRISTY HOLLIDAY [facility] ERT [id number] [facility] 2022-03-12 05:15:00 2022-03-12 06:41:00 Emergency Christy Holliday [facility] ..840.114 350.1.13.10 4.2.7.2.686 [id number] 084 [id number] [facility] 2022-02-20 04:17:00 2022-02-20 07:16:00 Emergency X CHRISTY HOLLIDAY [facility] ERT [id number] [facility] 2022-02-20 04:17:00 2022-02-20 07:16:00 Emergency Christy Holliday [facility] 1.2.840.114 350.1.13.10 4.2.7.2.686 [id number] [facility] 2021-02-03 11:10:00 2021-02-03 11:10:00 Outpatient DENISE CAMPO [facility] [id number] [facility] 2021-01-13 11:20:00 2021-01-13 11:20:00 Outpatient [facility] [id number] [facility] 2020-11-10 08:20:00 2020-11-10 08:20:00 Outpatient KARLEY ESTRADA [facility] [id number] [facility] Results Test Description Test Time Test Comments Results Result Co mments Source [facility] + Lactic [id number] 20:52:47* Test Item Value Reference Range Interpretation Comme nts PH (test code = 2) 7.39 7.35-7.45 PCO2 (test code = 1867070414) 42 35-45 PO2 (test code = 7480793172) 76 80-100 L HCO3 (test code = 6952098115) 25 22-26 BE (test code = 8992977817) -0.1 -3.0-3.0 THB (test code = 4864457186) 14.3 g/dL 13.5-18.0 %O2HB (test code = 6754449962) 85.8 % 94.0-99.0 L %COHB ART (test code = 0798161114) 9.0 % 0.0-1.5 H %METHB ART (test code = 5275598522) 0.3 % 0.4-1.5 L VOL%O2 ART (test code = 6454255581) 17.3 % 15.0-23.0 NA (test code = 3589970383) 140 mmol/L 135-145 K+ (test code = 2709599167) 4.1 mmol/L 3.5-5.0 AC CA IONZ (test code = 3157104808) 4.50 mg/dL 4.50-5.30 GLUCOSE (test code = 7187282815) 105 mg/dL 70-110 LACTIC ACID (test code = 8460352367) 2.60 mmol/L 0.50-2.20 H Lab Interpretation (test cod e = 87823-8) Abnormal [facility] HospitalTroponin [id number] 20:34:14* Test Item Value Reference Range Interpretation Comme nts TROPONIN I (test code = 9491442464) 0.008 ng/mL <=0.034 LOUISE (test code = [...] of biotin. Lab Interpretation (test code = 47904-0) Normal [facility] Wid-[id number] 20:31:35* Test Item Value Reference Range Interpretation Comme nts NT-proBNP (test code = 74564-3) 188 pg/mL <=125 LOUISE (test code = LOUISE) Result Indeterminate-Consid er causes of NT-proBNP elevation other than Heart failure such as acute coronary syndrome, pulmonary embolism, pulmonary hypertension, sepsis, stroke, and renal dysfunction. Lab Interpretation (test code = 35348-7) Abnormal [facility] Metabolic Panel (56401)2024-02-08 20:21:10* Test Item Value Reference Range Interpretation Comme nts NA (test code = 2161682822) 135 mmol/L 135-145 K (test code = 2588277246) 4.5 mmol/L 3.5-5.0 CL (test code = 3992868887) 100 mmol/L 98-108 CO2 TOTAL (test code = 1026581784) 22 mmol/L 23-31 L AGAP (test code = 0210709638) 13 2-16 BUN (test code = 4575337643) 8 mg/dL 7-23 GLUCOSE (test code = 0714251669) 97 mg/dL 70-110 CREATININE (test code = 2160-0) 0.65 mg/dL 0.60-1.25 TOTAL BILI (test code = 1979485301) 0.4 mg/dL 0.1-1.1 CALCIUM (test code = 9228092987) 9.4 mg/dL 8.6-10.6 T PROTEIN (test code = 9218389064) 8.2 g/dL 6.3-8.2 ALBUMIN (test code = 2267435437) 4.7 g/dL 3.5-5.0 ALK PHOS (test code = 3264166257) 76 U/L 34-122 ALTv (test code = 1742-6) 33 U/L 5-50 AST(SGOT) (test code = 2578158700) 54 U/L 13-40 H eGFR (test code = 56358-9) 111.3 mL/min/1.73m2 CKD-EPI eGFR (2020). Assuming creatinine has been stable day-to-day for at least three months, the eGFR indicates Category G1 (>= 90 mL/min/1.73 m2) Lab Interpretation (test code = 67114-5) Abnormal [facility] HospitalMagnesium2024-04-01 20:21:10* Test Item Value Reference Range Interpretation Comme nts MAGNESIUM (test code = 3259472760) 2.1 mg/dL 1.7-2.4 Lab Interpretation (test cod e = 64623-6) Normal [facility]XR CHEST 1 [id number] 20:07:21EXAM: XR CHEST 1 VW COMPARISON: 01/14/2024 HISTORY: sob FINDINGS: Lungs: Slightly hyperexpanded lungswith subtle progression of interstitialprominence. Trace pleural effusions could be present. Heart/Mediastinum: Stable cardiomegaly. Bones and soft tissues: No osseous abnormality is visualized.[facility] Cbc with [id number] 20:04:26* Test Item Value Reference Range Interpretation [...] 33.8 g/dL 31.2-35.0 RDW-SD (test code = 05496-3) 50.5 fL 38.5-51.6 RDW-CV (test code = 788-0) 14.3 % 12.1-15.4 PLT (test code = 777-3) 206 150-328 MPV (test code = 36620-6) 9.1 fL 9.8-13.0 L NRBC/100 WBC (test code = 8517461530) 0.0 0.0-10.0 NRBC x10^3 (test code = 5956003580) See_Comment [Automated [employer]] The system which generated this result transmitted reference range: 10*3/?L. The reference range was not used to interpret this result as normal/abnormal. GRAN MAT (NEUT) % (test code = 770-8) 81.0 % IMM GRAN % (test code = 3108369970) 1.20 % LYMPH % (test code = 736-9) 10.9 % MONO % (test code = 5905-5) 6.8 % EOS % (test code = 713-8) 0.0 % BASO % (test code = 706-2) 0.1 % GRAN MAT x10^3(ANC) (test code = 3732982546) 9.31 10*3/uL 1.99-6.95 H IMM GRAN x10^3 (test code = 2106037410) 0.14 10*3/uL 0.00-0.06 H LYMPH x10^3 (test code = 731-0) 1.25 10*3/uL 1.09-3.23 MONO x10^3 (test code = 742-7) 0.78 10*3/uL 0.36-1.02 EOS x10^3 (test code = 711-2) 0.06-0.53 L BASO x10^3 (test code = 704-7) 0.01-0.09 Lab Interpretation (test code = 86301-6) Abnormal [facility] HospitalCOMP. METABOLIC PANEL (83231)2023-12-23 04:53:26* Test Item Value Reference Range Interpretation Comme nts NA (test code = 1722021013) 135 mmol/L 135-145 K (test code = 9332837953) 3.2 mmol/L 3.5-5.0 L CL (test code = 2064335374) 104 mmol/L 98-108 CO2 TOTAL (test code = 0796337141) 23 mmol/L 23-31 AGAP (test code = 0336521756) 8 2-16 BUN (test code = 1528874415) 11 mg/dL 7-23 GLUCOSE (test code = 9783511182) 82 mg/dL 70-110 CREATININE (test code = 2160-0) 0.64 mg/dL 0.60-1.25 TOTAL BILI (test code = 6647777187) 0.5 mg/dL 0.1-1.1 CALCIUM (test code = 2012954560) 8.8 mg/dL 8.6-10.6 T PROTEIN (test code = 6793647102) 6.7 g/dL 6.3-8.2 ALBUMIN (test code = 5157152896) 4.1 g/dL 3.5-5.0 ALK PHOS (test code = 6127883159) 46 U/L 34-122 ALTv (test code = 1742-6) 21 U/L 5-50 AST(SGOT) (test code = 5844386120) 43 U/L 13-40 H eGFR (test code = 83438-9) 111.8 mL/min/1.73m2 CKD-EPI eGFR (2020). Assuming creatinine has been stable day-to-day for at least three months, the eGFR indicates Category G1 (>= 90 mL/min/1.73 m2) Lab Interpretation (test code = 44984-9) Abnormal [facility] HospitalLIPASE2024-02-14 04:53:26* Test Item Value Reference Range Interpretation Comme nts LIPASE (test code = 3491889529) 105 U/L 0-220 Lab Interpretation (test cod e = 49009-3) Normal [facility] HospitalCBC WITH [id number] 04:34:24* Test Item Value Reference Range Interpretation [...] 33.0 g/dL 31.2-35.0 RDW-SD (test code = 16788-6) 50.9 fL 38.5-51.6 RDW-CV (test code = 788-0) 13.7 % 12.1-15.4 PLT (test code = 777-3) 232 150-328 MPV (test code = 17015-6) 8.7 fL 9.8-13.0 L NRBC/100 WBC (test code = 7704808104) 0.0 0.0-10.0 NRBC x10^3 (test code = 0037378408) See_Comment [Automated messa ge] The system which generated this result transmitted reference range: 10*3/?L. The reference range was not used to interpret this result as normal/abnormal. GRAN MAT (NEUT) % (test code = 770-8) 58.8 % IMM GRAN % (test code = 3022634975) 0.90 % LYMPH % (test code = 736-9) 27.8 % MONO % (test code = 5905-5) 10.5 % EOS % (test code = 713-8) 1.3 % BASO % (test code = 706-2) 0.7 % GRAN MAT x10^3(ANC) (test code = 6689213758) 5.68 10*3/uL 1.99-6.95 IMM GRAN x10^3 (test code = 9103082238) 0.09 10*3/uL 0.00-0.06 H LYMPH x10^3 (test code = 731-0) 2.69 10*3/uL 1.09-3.23 MONO x10^3 (test code = 742-7) 1.02 10*3/uL 0.36-1.02 EOS x10^3 (test code = 711-2) 0.13 10*3/uL 0.06-0.53 BASO x10^3 (test code = 704-7) 0.07 10*3/uL 0.01-0.09 Lab Interpretation (test code = 00431-7) Abnormal [facility] Hospital[facility] P[facility] W [id number] 03:32:43Exam: CT Abdomen and Pelvis With Contrast, [...] acute osseous abnormality.Soft tissues: Small fat-containing inguinal hernias.[facility] HospitalEthanol2024-02-13 02:32:24* Test Item Value Reference Range Interpretation Comme nts ALCOHOL (test code = 2328664503) 117 mg/dL LOUISE (test code = LOUISE) <10 Xqvgcmtp39-090 Toxic>100 Depression of DIG[employer] MEDIA ASSOCIATE>400 Fatalities Reported [facility] HospitalComp. Metabolic Panel (52364)2023-12-22 02:31:43* Test Item Value Reference Range Interpretation Comme nts NA (test code = 0871096618) 133 mmol/L 135-145 L K (test code = 6488680642) 3.3 mmol/L 3.5-5.0 L CL (test code = 4918849992) 102 mmol/L 98-108 CO2 TOTAL (test code = 7472443033) 25 mmol/L 23-31 AGAP (test code = 1616840544) 6 2-16 BUN (test code = 9033765912) 11 mg/dL 7-23 GLUCOSE (test code = 5718851179) 75 mg/dL 70-110 CREATININE (test code = 2654539984) 0.51 mg/dL 0.60-1.25 L TOTAL BILI (test code = 9640940603) 0.5 mg/dL 0.1-1.1 CALCIUM (test code = 1953383666) 8.9 mg/dL 8.6-10.6 T PROTEIN (test code = 9034258321) 7.2 g/dL 6.3-8.2 ALBUMIN (test code = 5785187127) 4.5 g/dL 3.5-5.0 ALK PHOS (test code = 6758672767) 46 U/L 34-122 ALTv (test code = 1742-6) 15 U/L 5-50 AST(SGOT) (test code = 1363233187) 24 U/L 13-40 eGFR (test code = 32599-1) 119.7 mL/min/1.73m2 CKD-EPI eGFR (2020). Assuming creatinine has been stable day-to-day for at least three months, the eGFR indicates Category G1 (>= 90 mL/min/1.73 m2) Lab Interpretation (test code = 16622-0) [facility] Test Item Value Reference Range Interpretation Comme nts LIPASE (test code = 0074661965) 121 U/L 0-220 Lab Interpretation (test cod e = 97181-0) Normal [facility] / [id number] 02:21:02* Test Item Value Reference Range Interpretation Comme nts PROTIME PATIENT (test code = 5964-2) 10.5 10.1-12.6 INR (test code = 6301-6) 0.9 Normal INR <1.1; Warfarin Therapeutic range 2.0 to 3.0 or 2.5 to 3.5, depending upon the indications. Lab Interpretation (test code = 88869-0) Normal [facility] with [id number] 02:14:04* Test Item Value Reference Range Interpretation [...] 34.0 g/dL 31.2-35.0 RDW-SD (test code = 71563-8) 49.1 fL 38.5-51.6 RDW-CV (test code = 788-0) 13.5 % 12.1-15.4 PLT (test code = 777-3) 260 150-328 MPV (test code = 55561-7) 8.7 fL 9.8-13.0 L NRBC/100 WBC (test code = 3957655415) 0.0 0.0-10.0 NRBC x10^3 (test code = 6126699291) See_Comment [Automated messa ge] The system which generated this result transmitted reference range: 10*3/?L. The reference range was not used to interpret this result as normal/abnormal. GRAN MAT (NEUT) % (test code = 770-8) 64.3 % IMM GRAN % (test code = 6951064752) 0.90 % LYMPH % (test code = 736-9) 24.2 % MONO % (test code = 5905-5) 9.1 % EOS % (test code = 713-8) 0.7 % BASO % (test code = 706-2) 0.8 % GRAN MAT x10^3(ANC) (test code = 4600558443) 8.73 10*3/uL 1.99-6.95 H IMM GRAN x10^3 (test code = 5612137198) 0.12 10*3/uL 0.00-0.06 H LYMPH x10^3 (test code = 731-0) 3.28 10*3/uL 1.09-3.23 H MONO x10^3 (test code = 742-7) 1.23 10*3/uL 0.36-1.02 H EOS x10^3 (test code = 711-2) 0.10 10*3/uL 0.06-0.53 BASO x10^3 (test code = 704-7) 0.11 10*3/uL 0.01-0.09 H Lab Interpretation (test code = 08539-8) [facility]normal [facility] Z0787-95-70 10:16:22* Test Item Value Reference Range Interpretation Comments TROPONIN I (test code = 4101746033) 0.007 ng/mL See_Comment [Automated message] The system [...] of biotin. Lab Interpretation (test code = 80209-4) Normal [facility]MINAL GLI-IBC8165-50-14 10:13:01* Test Item Value Reference Range Interpretation Comme nts NT-proBNP (test code = 8989997349) 52 pg/mL See_Comment [Automated message] The system which generated this result transmitted reference range: <=125. The reference range was not used to interpret this result as normal/abnormal. LOUISE (test code = LOUISE) Biotin has been reported to cause a negative bias, interpret results relative to patient's use of biotin. Lab Interpretation (test code = 37118-3) [facility]OL[facility] PANEL (80451)2022-02-20 10:04:02* Test Item Value Reference Range Interpretation Comme nts NA (test code = 8661254609) 137 mmol/L 135-145 K (test code = 0075679876) 3.6 mmol/L 3.5-5.0 CL (test code = 5787421621) 99 mmol/L 98-108 CO2 TOTAL (test code = 1672145886) 25 mmol/L 23-31 AGAP (test code = 2416558930) 2-16 BUN (test code = 7782499513) 6 mg/dL 7-23 L GLUCOSE (test code = 8105351038) 88 mg/dL 70-110 CREATININE (test code = 4208261472) 0.55 mg/dL 0.60-1.25 L TOTAL BILI (test code = 4727610603) 0.8 mg/dL 0.1-1.1 CALCIUM (test code = 8266932808) 8.9 mg/dL 8.6-10.6 T PROTEIN (test code = 4892981627) 7.5 g/dL 6.3-8.2 ALBUMIN (test code = 3344331384) 4.8 g/dL 3.5-5.0 ALK PHOS (test code = 8655883177) 113 U/L 34-122 ALTv (test code = 1742-6) 84 U/L 5-50 H AST(SGOT) (test code = 9922116777) 107 U/L 13-40 H eGFR (test code = 7321508637) mL/min/1.73m2 LOUISE (test code = LOUISE) Association [...] imaging tests). Lab Interpretation (test code = 59951-9) Abnormal [facility] HospitalLIPASE, GQJEX8150-14-86 10:03:21* Test Item Value Reference Range Interpretation Comme nts LIPASE (test code = 3734671360) 193 U/L 0-220 Lab Interpretation (test cod e = 56624-9) Normal [facility] HospitalCB WITH FURB1638-79-09 09:39:17* Test Item Value Reference Range Interpretation Comme nts WBC (test code = 6690-2) See_Comment [Automated [employer]] The system which generated this result transmitted [...] g/dL 31.2-35.0 H RDW-SD (test code = 23948-1) 44.4 fL 38.5-51.6 RDW-CV (test code = 788-0) 11.9 % 12.1-15.4 L PLT (test code = 777-3) See_Comment [Automated [employer] ge] The system which generated this result transmitted reference range: 150 - 328 10*3/?L. The reference range was not used to interpret this result as normal/abnormal. MPV (test code = 82591-3) 9.2 fL 9.8-13.0 L NRBC/100 WBC (test code = 7847479910) See_Comment [Automated [employer] ssage] The system which generated this result transmitted reference range: 0.0 - 10.0 /100 WBCs. The reference range was not used to interpret this result as normal/abnormal. NRBC x10^3 (test code = 2961718997) <0.01 See_Comment [Automated messa ge] The system which generated this result transmitted reference range: 10*3/?L. The reference range was not used to interpret this result as normal/abnormal. GRAN MAT (NEUT) % (test code = 770-8) 69.9 % IMM GRAN % (test code = 5498180523) 1.50 % LYMPH % (test code = 736-9) 18.9 % MONO % (test code = 5905-5) 7.0 % EOS % (test code = 713-8) 1.9 % BASO % (test code = 706-2) 0.8 % GRAN MAT x10^3(ANC) (test code = 4836470913) 7.15 10*3/uL 1.99-6.95 H IMM GRAN x10^3 (test code = 1408303496) 0.15 10*3/uL 0.00-0.06 H LYMPH x10^3 (test code = 731-0) 1.93 10*3/uL 1.09-3.23 MONO x10^3 (test code = 742-7) 0.72 10*3/uL 0.36-1.02 EOS x10^3 (test code = 711-2) 0.19 10*3/uL 0.06-0.53 BASO x10^3 (test code = 704-7) 0.08 10*3/uL 0.01-0.09 Lab Interpretation (test code = 04951-4) Abnormal [facility] Notes Date/Time Note Provider Source 2024-02-17 21:43:52 5365-75-52C94:43:52F ormatting of this note might be different from the original.No answer in lobby. 41387-5Vdtbgepvw department XmupCS1499-81-08O34:44:07[facility] NoteTXT1.2.840.099785.1.13.104.2.7 .2.072460|[id number] for patient nbht90613-4GiijKJYPETDTTQIPymgerjb d C-CDA narrative qdts460992763Bvltan J Hoot RNUT[address] VyoyLpsdaxqcbVfterlyhjZTVT46931850 91UIYMFNEYPJXQLDNXZDNDIH2761-85-37 T21:44:071.2.840.575866.1.72.3.15| 1.2.840.634029.1.13.104.2.7.2.7278 79_[id number] Angy Turner RN [facility] 2024-02-17 21:42:10 8587-65-92H89:42:10F ormatting of this note might be different from the original.Pt's blood pressure cuff and pulse ox found lying on chair. Called for patient in lobby 2 times, no answer. No one in lobby. 17565-3Qochasdms department ReeeOU0511-16-18U29:44:10[facility] department NoteTXT1.2.840.356347.1.13.104.2.7 .2.291711|[id number] for patient brim66020-4XhmlRAMVFDHNBKDTwwfjicp d C-CDA narrative tqrt826753654Jcmen A. Campbell [address]TXTX[address] 17IZTGUUEFIEVKYRQXJSFHPJ9150-22-71 T21:44:101.2.840.026418.1.72.3.15| 1.2.840.968761.1.13.104.2.7.2.7278 79_[id number] Sierra Samaniego RN [facility] 2024-02-17 21:41:09 2993-26-78H15:41:09F ormatting of this note might be different from the original.Pt not in lobby or in room. No answer in lobby. 21808-6Fkkqtarur department YyaqZZ8374-02-58U45:41:40[facility] department NoteTXT1.2.840.014738.1.13.104.2.7 .2.673722|9169068780SVVhgpwkyth for patient rvad32734-2OkhiCZXHSSFKDKKSsjonbwv d C-CDA narrative text[address]TXTX[address]75 66XPEBSKCNMDQIBGBAVFBICK1181-20-91 T21:41:401.2.840.811498.1.72.3.15| 1.2.840.014684.1.13.104.2.7.2.7278 79_[id number] [facility] 2024-02-17 21:14:29 5609-26-18Y71:14:29F ormatting of this note might be different from the original.Pt not in FT01-01 and no answer in lobby. 63481-6Neooejgan department HparZG2022-68-28L55:15:32[facility] NoteTXT1.2.840.266552.1.13.104.2.7 .2.482153|7570097326ZJUszeygfcl for patient togd32409-3YnwfJYJNLBBXJEUTuemjxoy d C-CDA narrative text[address]vd[address]onGalvestonTXTX[address] 58YHYLDLTLXECUUOQPXFEAXV5327-87-15 T21:15:321.2.840.667536.1.72.3.15| 1.2.840.943040.1.13.104.2.7.2.7278 79_[id number] [facility] 2024-02-17 20:48:50 4250-86-65O29:48:50F ormatting of this note might be different from the original.Pt arrives ambulatory to ED c/o SOB, right upper abdominal pain, and left leg and hip pain. Pt states that he has been on prednisone for about 5 yrs which had given him osteoporosis which is causing his leg pain. Reports hx of COPD, o2 is generally @ 91 he says. 95894-0Xaqhuprxm department Triage wewqFT1336-32-77O56:53:54[facility] Triage noteTXT1.2.840.500595.1.13.104.2.7 .2.970114|[id number] for patient nvmu72941-7Bieamtsmw department NoteLNNARRATIVEFormatted C-CDA narrative qwnp401961223Iznsdr L Dl RN[address]TXTX[address] 79AHMVEGBVUUCTMYLYUBZJLI9430-95-09 T20:53:541.2.840.422001.1.72.3.15| 1.2.840.283199.1.13.104.2.7.2.7278 79_[id number] Leah Quarles Dl MACHUCA [facility] 2024-02-08 21:37:56 1510-50-31L17:37:56F ormatting of this note might be different from the original.Pt left AMA 84591-7Iuhjahoys department AvwdYY2514-12-52P08:38:11[facility] department NoteTXT1.2.840.027485.1.13.104.2.7 .2.086236|2506667640BAJahbgkari for patient cnzg22033-3AtrtFFAWVRJBTAWVoqlxonu d C-CDA narrative geav818727503Zijiq M Martinez RN[address]TXTX[address] 59NYACTASKVBWGTSOFWTKGRT9163-47-73 T21:38:111.2.840.145075.1.72.3.15| 1.2.840.224134.1.13.104.2.7.2.7278 79_[id number] Kylie Foster RN [facility] 2024-02-08 21:32:00 0212-98-32N35:32:00F ormatting of this note might be different [...] ambulatory with steady gait, [place] 41997-6Ylrgmgrgv department InyzVF4684-34-41Q49:40:32[facility] NoteTXT1.2.840.475567.1.13.104.2.7 .2.146543|5368489802RANegwakuhi for patient avko69478-0GoifIVUOJTHWRHFWpmwxneh d C-CDA narrative text[address]TXTX[address] 72UMGDYJUJXXSBXEHAPLUPHH0130-98-02 T21:40:321.2.840.501770.1.72.3.15| 1.2.840.669999.1.13.104.2.7.2.7278 79_[id number] [facility] 2024-02-08 20:54:38 9613-66-38K63:54:38F ormatting of this note might be different from the original.Pt states he uses O2 at home, portable O2 is broken 24098-6Jjdohitdg[address] [place] [address] PthbRT5086-70-09T96:55:13[facility] department NoteTXT1.2.840.170570.1.13.104.2.7 .2.160539|5746602005AIWigiinycd for patient wtpk17260-1EnisGVKFCMXHBQIVftotkej d C-CDA narrative text[address]TXTX[address] 89FARBTGFJWANFZSLPHLNVOV6253-94-61 T20:55:131.2.840.065060.1.72.3.15| 1.2.840.708433.1.13.104.2.7.2.7278 79_[id number] [facility] 2024-02-08 20:51:11 2941-47-05X34:51:11F ormatting of this note might be different from the original.Pt ambulates with cane 11421-1Sdjenjfgl department GqcwXR2576-07-16Y96:51:26[facility] NoteTXT1.2.840.644151.1.13.104.2.7 .2.451130|2114166606YVGjkjkujhn for patient carz20669-5LsbpAVLNWRXFTBVVrhjlnuw d C-CDA narrative text[address] LhqaQvmwpdviqOciheseutJUWZ11371775 72IVUHTBXRGQVGNYPRQQNHJF1759-70-16 T20:51:261.2.840.681566.1.72.3.15| 1.2.840.024171.1.13.104.2.7.2.7278 79_[id number] [facility] 2024-02-08 20:43:13 7553-10-31Q61:43:13F ormatting of this note might be different from the original.CC: Pt arrives SOB after leaving [place] earlier in the shift. He reports he [...] 3 BC powders and drank 3 beers." 16959-5Tilhshakp department Triage bprgHE2585-37-44I90:48:36[facility] Triage noteTXT1.2.840.174531.1.13.104.2.7 .2.260048|3214920505OIZnedcykot for patient vtqu90419-8Wbbkfrrnq department NoteLNNARRATIVEFormatted C-CDA narrative ascc075726307Btheyl Sarika King RN[address]TXTX[address] 95RFQUUAFBWCCQENBOCFMXWU0138-55-03 T20:48:361.2.840.084320.1.72.3.15| 1.2.840.197563.1.13.104.2.7.2.7278 79_[id number] Leah Sarika King RN [facility] 2024-02-08 17:04:05 8332-94-76Y05:04:05F ormatting of this note might be different [...] of the department with a steady gait. 88537-3Hsjcjlhii department SujqKL2566-62-70F13:05:22[facility] department NoteTXT1.2.840.543922.1.13.104.2.7 .2.739167|9426077892DQRochirfjg for patient bmnz91946-2HnmyGKYVQSSASPCXvaibhsh d C-CDA narrative rjjz189000258Wjih M Hayes RN[address]TXTX[address] 87QPKKDTTDKASWLHYLAZHDOI8185-02-26 T17:05:221.2.840.915656.1.72.3.15| 1.2.840.953239.1.13.104.2.7.2.7278 79_[id number] Allison Zhang RN [facility] 2024-02-08 14:23:02 9034-24-54H18:23:02F ormatting of this note might be different from the original.Pt ambulates with a cane 30533-4Ieqnqnxym department YhiqTJ1373-92-43J70:23:12[facility] NoteTXT1.2.840.758753.1.13.104.2.7 .2.578902|1056590046NMYybqaawgc for patient slmt82697-9HbzuAZIFMXMTOCSPfzdnjrr d C-CDA narrative etaj475867350OwktvKylie Foster RN[address] BwphDqxpmjftyWrleuboiuXXJD09420556 99LMXOUFFWTUNRJWOWLAIJUC9708-06-01 T14:23:121.2.840.235141.1.72.3.15| 1.2.840.486178.1.13.104.2.7.2.7278 79_[id number] Kylie Foster RN [facility] 2024-02-08 14:13:15 3886-02-51R37:13:15F ormatting of this note might be different [...] only thing that helps." Face is flushed. 99514-3Kmhwvaqht department Triage dxddCH6757-34-33X66:17:26[facility] Triage noteTXT1.2.840.890399.1.13.104.2.7 .2.405918|2587930085AJEktjpqpki for patient jyuh17398-0Tbdtkomif department NoteLNNARRATIVEFormatted C-CDA narrative gaif502572715Orkgoid Fizurdo MACHUCAUT[address]TXTX[address] 57MXZOABJMSBCOTHRAJAZYTA6593-21-87 T14:17:261.2.840.361794.1.72.3.15| 1.2.840.136055.1.13.104.2.7.2.7278 79_[id number] Hali Traci RN [facility] 2024-01-14 06:16:25 3468-97-96X50:16:25F ormatting of this note might be different [...] w/d, pt leaving in no apparent distress, 77297-7Zsecudgsm department GrevTM8904-63-91N47:17:20[facility] NoteTXT1.2.840.950756.1.13.104.2.7 .2.859961|7112765465MKDxichmugl for patient bdjj70769-6FusrPTTOUDHVNIHEezzctcb d C-CDA narrative text[address]TXTX[address] 72OECNANPWJBQFPBZNRMHTOQ0397-36-46 T06:17:201.2.840.752070.1.72.3.15| 1.2.840.051199.1.13.104.2.7.2.7278 79_[id number] [facility] 2024-01-14 04:49:43 1339-35-07M12:49:43F ormatting of this note might be different [...] ext without difficulty, amb with steady gait 66992-8Lvcqxfmbb department Triage brftAL3439-08-35A99:55:49[facility] Triage noteTXT1.2.840.442370.1.13.104.2.7 .2.554989|3703928295JDMcolfqips for patient mfli78789-7Dsfprfnzv department NoteLNNARRATIVEFormatted C-CDA narrative qqcx295482931Vzvatn R Shehadeh RN[address] IyzgRjxucdsuuKogwijhmtBDQR45215134 44KSRDFZXSXEJXCDVEKMRCMT8967-84-65 T04:55:491.2.840.169488.1.72.3.15| 1.2.840.446541.1.13.104.2.7.2.7278 79_[id number] Leah King RN [facility] 2024-01-14 04:43:00 2416-57-42Y72:43:00A ssociated Order(s): EKG-12 Lead ROUTINE ONCEPre-Procedure Diagnose(s): Chest pain, unspecified typePost-Procedure Diagnose(s): Chest pain, unspecified type [facility] Emergency Department NotePatient Name: Randy BrionesDate of : 1970 53 year old maleTreatment Room: TX1/YQ7Vzomhca Record Number: [id number] Care Physician: Adrianna iKng Escorted by: Family [5]Mode of Arrival: Personal means [1]EMS Treatment Prior to ED Arrival:CEO NA treatment: NTGPTA treatment comments: 0.4 mg SL taken CEO NA, no releifTravel and Exposure Screening:SymptomsDoes patient have [...] Negative.Endocrine: Endocrine negativePhysical Exam:ED Triage VitalsWeight 01/14/24 0451 81.2 kg (179 lb)Actual or estimated 01/14/24450 [...] Resident: Max Nur Results:Lab ResultsCOMP. METABOLIC PANEL (49455) - AbnormalResult Value Ref RangeNA 138 135 [...] 49 (*) 13 - 40 U/LeGFR 93.3 mL/min/1.04r9OYD WITH DIFF - AbnormalWBC 11.59 (*) 4.20 [...] 220 U/LCOVID-19 (ID NOW RAPID TESTING) - TgkchvOAJR-RmA-0 Rapid ID NOW Not Detected Not DetectedETHANOLALCOHOL 62 mg/dLEKG:If EKG completed, see Procedure Note.Orders and Treatments:Orders Placed This EncounterProcedures XR CHEST 1 VW TROPONIN I COMP. METABOLIC PANEL (41530) LIPASE, SERUM CBC WITH DIFF N-Terminal Pro-Bnp Ethanol COVID-19 (ID NOW TESTING) Lab Only COVID Interpretation O2 Per ProtocolOrders Placed This EncounterMedications morpHINE (4 mg/mL) injection 4 mg ondansetron (ZOFRAN (PF)) injection 4 mg ipratropium-albuteroL (DUONEB) 0.5 mg-3 mg(2.5 mg base)/3 mL nebulizer solution 3 mLFirst Provider Eval:ED EventsDate/Time Event User Mnftwdww55/07/24 0510 Medical Screening Begins JAC NAVARRO MD --01/14/24 0510 First Provider Evaluation JAC NAVARRO MD --ED COURSEDiagnosis/Impression as of 01/14/24 0605Chest pain, unspecified typeBronchitisProcedures:EKG-12 Lead ROUTINE ONCEDate/Time: 01/14/2024 5:24 AMPerformed by: Jac Navarro MDAuthorized by: Jac Navarro MDECYovani interpreted by ED Physician in the absence of a water taxi operator: yesPrevious ECG:Previous ECG: Compared to currentSimilarity: [...] on fileFollow-up:Electronically signed by:Jac Navarro MD01/14/24 0600 52622-3Ukynuitbt Emergency department PrgmJX5666-12-91P48:00:50Physician Emergency department NoteTXT1.2.840.477280.1.13.104.2.7 .2.283179|5293456988WBAwewquepa for patient csex17374-1Tlbcjglec department NoteLNNARRATIVEFormatted C-CDA narrative textUT[address] StreetEzdgIqewrprasZcusfrpgwKRPN[address]23 67ZCISXSQMJDGUPLMJXCGHDX6047-81-52 T06:00:501.2.840.956755.1.72.3.15| 1.2.840.740679.1.13.104.2.7.2.7278 79_[id number] [facility] 2023-12-22 23:12:16 5248-27-44I20:12:16F ormatting of this note might be different [...] with steady gait, in no apparent distress, 47646-6Wmnbqamkn department HrhmZU7325-04-23J20:13:50[facility] NoteTXT1.2.840.908407.1.13.104.2.7 .2.884530|5014615699MMOvcijzejd for patient kqiz62100-4StdvAQKHQZQOFXXZtpptveo d C-CDA narrative csmk418933028JsctiMary Magaña RN[address]TXTX[address] 96IGXTEPBBYCBPIJJWSOCIQN4382-03-13 T23:13:501.2.840.815715.1.72.3.15| 1.2.840.530733.1.13.104.2.7.2.7278 79_[id number] Mary Magaña RN [facility] 2023-12-22 21:41:55 5520-70-45R31:41:55F ormatting of this note might be different from the original.Pt arrives ambulatory to ED reporting bleeding with stools and 10/10 abdominal pain. States he was here last night but had to leave before receiving results d/t having to work. Says the pain became worse so he came back in. 33843-6Omonsyhpw department Triage hljzGV9169-26-72E21:48:52[facility] Triage noteTXT1.2.840.696386.1.13.104.2.7 .2.609047|8969942344GRSsryoqevk for patient dgga86989-0Yllwmgkdf department NoteLNNARRATIVEFormatted C-CDA narrative syln367895873Voivlh L Williams RN[address]TXTX[address] 86UDBVSGGLUTWDBWUQRABSOY1189-42-05 T21:48:521.2.840.881998.1.72.3.15| 1.2.840.951998.1.13.104.2.7.2.7278 79_[id number] Leah Lizama RN [facility] 2023-12-21 21:31:00 1672-11-77M99:31:00F ormatting of this note might be different [...] with steady gait, appears in no distress. 08134-2Rbrenninq department CseaJE7688-67-23Z72:38:39[facility] NoteTXT1.2.840.867195.1.13.104.2.7 .2.092687|8824218046AXGxookwufc for patient gohd17626-3YspfOMOEYWGXKNKQojdrndm d C-CDA narrative jdrb356705794JflbeMary Magaña RN[address]vdGalvestonGalvestonTXTX[address] 68TVSDXHVECKSXMZJUQBAIBN5279-87-47 T21:38:391.2.840.278614.1.72.3.15| 1.2.840.746073.1.13.104.2.7.2.7278 79_[id number] Mary Magaña RN [facility] 2023-12-21 21:30:00 3879-13-53L88:30:00F ormatting of this note might be different from the original.Pt wished to leave AMA. Pt states " yall were wonderful but 3am come real early." 63926-9Xshjhdfex department LkavMO2920-24-52B52:36:58[facility] NoteTXT1.2.840.840641.1.13.104.2.7 .2.511541|1396210146OPQvuffoxbu for patient tgyj71837-0ZvnuDENNQXRFCEPAgiufvys d C-CDA narrative text[address]TXTX[address] 06EZEHZXFMTQENBHJITZORSJ1344-02-82 T21:36:581.2.840.637370.1.72.3.15| 1.2.840.081287.1.13.104.2.7.2.7278 79_[id number] [facility] 2023-12-21 21:26:22 1117-63-29R90:26:22F ormatting of this note might be different from the original.Pt asking to go outside and smoke, wants to go home and eat. Pt educated on risks of leaving AMA. Provider informed pt is in pain. [address] KcjgJE1382-44-60H81:33:35[facility] NoteTXT1.2.840.349046.1.13.104.2.7 .2.947565|9299251298UWFaneclzze for patient njme18146-1LotkLVUZUXJCZSHJviqkyst d C-CDA narrative udws639736418Vljqpxyee BRADFORD[address]TXTX[address] 86RMBEDXJLPEOYMVTWOJHMGW3340-22-95 T21:33:351.2.840.420464.1.72.3.15| 1.2.840.401544.1.13.104.2.7.2.7278 79_[id number] Leah King RN [facility] 2023-12-21 19:31:50 7003-12-06L32:31:50F ormatting of this note might be different from the original.Pt arrived ambulatory with complaints of bright red rectal bleeding and generalized abdominal pain this afternoon. Pt states his stool was normal consistency but continuous bright red blood. Denies this happening before.Pt is an alcoholic, had 2 beer CEO NA. States he vomits all the time but not something new today. 38869-8Upvzdsnqm department Triage erttHM4284-79-56U43:33:28[facility] department Triage noteTXT1.2.840.755829.1.13.104.2.7 .2.102427|3943909216GVLfdtsfmye for patient rlam36450-5Bbupklfwx[address] [place] [address] NoteLNNARRATIVEFormatted C-CDA narrative vrzf339843531Zdykiw D Roman RN[address]vdGalvestonGalvestonTXTX[address] 28DHRZOWQXRSDFHQFLKVSRAE3913-75-29 T19:33:281.2.840.987349.1.72.3.15| 1.2.840.583858.1.13.104.2.7.2.7278 79_2205 Gabi Esqueda RN [facility] 2023-11-10 20:13:39 8896-68-29C67:13:39F ormatting of this note might be different from the original.Pt requesting to leave AMA. ERP notified. Pt counseled to remain, risks of leaving AMA including discussed with pt. Pt continued to decline further ER evaluation at this time. AMA papers signed, witnessed, and placed on patient's chart. Pt left ambulatory. VS stable, no ataxia noted, GCS 15, A&Ox4. 68502-0Ngjqolkdm department UulcBM1788-61-05Z02:13:52[facility] department NoteTXT1.2.840.917063.1.13.104.2.7 .2.280437|[id number] for patient fnvc15582-2QnmtGMEHWVWMPWIZuqmimsp d C-CDA narrative [id number] Medrano RN[id number] 28XUADKNMHSVABBMIZPKBNCZ3766-51-99 T20:13:521.2.840.658578.1.72.3.15| 1.2.840.621047.1.13.104.2.7.2.7278 [id number] Briseida Medrano RN [facility] 2023-11-10 19:30:29 1892-27-69G51:30:29F ormatting of this note might be different from the original.Patient arrived to ED c/o SOB and COPD exacerbation. Symptoms started this morning. Patient wears 3L NC at home. Patient is a smoker. Patient states having the chills, diarrhea, and vomiting. States having sharp pains in chest from coughing. 27209-6Psggqkwzh department Triage fhxzPJ4593-24-81R85:35:27[facility] Triage noteTXT1.2.840.492186.1.13.104.2.7 .2.883631|[id number] for patient lxgk71260-2Wazxwlybq department NoteLNNARRATIVEFormatted C-CDA narrative [id number]-Awyei McInnis RN[id number] 26BETKMITGRKVUUQDOGZRNMM7709-64-51 T19:35:271.2.840.947557.1.72.3.15| 1.2.840.470013.1.13.104.2.7.2.7278 [id number] Sreedhar Gomez RN [facility]
[2024-04-13] MEDS ORDERED: LORazepam 2 MG/ML VIAL ONE (18:04)
[2024-04-13] MEDS ORDERED: METHYLPREDNISOLONE 125 MG INJ ONE (18:04)
[2024-04-13] MEDS ORDERED: IPRATROPIUM BROM 0.5MG/2.5ML ONE (18:04)
[2024-04-13] MEDS ORDERED: LEVALBUTEROL 1.25 MG/3 ML NEB ONE ×2 (18:05→19:19)
[2024-04-13] MEDS ORDERED: MAGNES/ALUMIN/SIMET 30ML UCUP ONE (18:24)
[2024-04-13] MEDS ORDERED: levoFLOXacin 750 MG TAB ONE (18:24)
[2024-04-13] MEDS ORDERED: LIDOCAINE VISCOUS 2% 10ML ORAL SOLN ONE (18:24)
[2024-04-13 18:25] LABS: Absolute Basophils 0.1 K/uL (0-0.5); Absolute Lymphocytes (CBC) 0.9 K/uL (0.7-4.9); Absolute Monocytes 0.3 K/uL (0.1-1.3); Absolute Neutrophil 5.2 K/uL (1.8-8.0); Basophils % 1.1 % (0-1.3); Eosinophils % 0.1 % (0-4.4); Hematocrit 35.6 % (39.6-49.0); Hemoglobin 12.2 g/dL (13.6-17.9); Lymphocytes % 13.2 % (15.3-44.8); MCH 33.3 pg (27.0-35.0); MCHC 34.3 g/dL (32.0-36.0); MCV 97.1 fL (80-100); MPV 6.6 fL (7.6-11.3); Monocytes % 4.4 % (3.3-12.3); Neutrophils % 81.2 % (41.7-73.7); Nucleated Red Blood Cells % 0.2 % (0-0); Platelets 245 thou/uL (152-406); RBC Red Blood Cell Count 3.67 M/uL (4.33-5.43); Red Cell Distribution Width 15.9 % (12.1-15.2)
[2024-04-13] MEDS ORDERED: FAMOTIDINE 20 MG/2 ML VIAL IV ONE (18:25)
[2024-04-13 18:43] LABS: SARS-CoV-2 Antigen CONTROL BLUE LINE VIS/BG OK; SARS-CoV-2 Antigen Rapid Res Negative (Negative)
[2024-04-13 18:45] LABS: PT Prothrombin Time 11.7 SECONDS (9.5-12.5); Protime INR 1.07
[2024-04-13 18:47] LABS: Specific Gravity < 1.005 (1.005-1.030); Sqamous Epithelial None Seen /HPF (None Seen); Urine Bacteria <20 /HPF (<20); Urine Bilirubin NEGATIVE (Negative); Urine Blood Negative (Negative); Urine Clarity Clear (Clear); Urine Color Colorless (Yellow); Urine Culture Reflex Order NOT NEEDED; Urine Glucose NEGATIVE (Negative); Urine Ketones NEGATIVE (Negative); Urine Microscopic Reflex YN ORDER UMIC; Urine Nitrite NEGATIVE (Negative); Urine Protein NEGATIVE (Negative); Urine RBC <5 /HPF (None Seen); Urine Urobilinogen Normal (Normal); Urine WBC <5 /HPF (<5)
[2024-04-13 18:59] LABS: ALT/SGPT 19 U/L (16-61); AST/SGOT 13 U/L (15-37); Albumin 2.9 g/dL (3.4-5.0); Albumin/Globulin Ratio 0.6 (1.1-1.8); Alkaline Phosphatase 69 U/L (45-117); Anion Gap 19.7 mEq/L (5.0-15.0); BUN Blood Urea Nitrogen 8 mg/dL (7-18); Bicarbonate 19 mEq/L (21-32); Bilirubin Total 0.4 mg/dL (0.2-1.0); Globulin 4.6 g/dL (2.3-3.5); Glomerular Filtration Rate 115 ml/min (=/>90); Glucose Level 122 mg/dL (74-106); Magnesium 1.9 mg/dL (1.6-2.4); NT PRO-BNP 215 pg/mL (<125); Potassium 3.7 mEq/L (3.5-5.1); Protein, Total 7.5 g/dL (6.4-8.2); Sodium Level 131 mEq/L (136-145)
[2024-04-13 19:01] LABS: Bilirubin Direct < 0.2 mg/dL (0-0.2); Bilirubin Indirect, Calculated 0.2 mg/dL (0.2-0.8)
[2024-04-13 19:05] LABS: Barbiturates NEGATIVE (NEGATIVE); Benzodiazepines NEGATIVE (NEGATIVE); Cocaine NEGATIVE (NEGATIVE); METHAMPHETAM NEGATIVE (NEGATIVE); Methadone NEGATIVE (NEGATIVE); Opiates NEGATIVE (NEGATIVE); Phencyclidine NEGATIVE (NEGATIVE); THC Cannibis NEGATIVE (NEGATIVE)
[2024-04-13] MEDS ORDERED: FOLIC ACID 5 MG/ML VIAL ONE (19:08)
[2024-04-13] MEDS ORDERED: THIAMINE 200 MG/2 ML INJ ONE (19:08)
[2024-04-13] MEDS ORDERED: MULTIVITAMINS 10 ML VIAL (INJ) IV ONE (19:08)
[2024-04-13] MEDS ORDERED: NA CHLORIDE 0.9% 1,000 ML ONE (19:09)
[2024-04-13] MEDS ORDERED: HYDROCODONE/APAP 10/325 TAB ONE (19:19)
--- NOTE | 2024-04-13 19:27 | RAD REPORT ---
EXAM DESCRIPTION: RAD - Chest Single View - 04/13/2024 7:14 pm CLINICAL HISTORY: COPD;Cough Chest pain. COMPARISON: <Comparisons> FINDINGS: Portable technique limits examination quality. The lungs are grossly clear. The heart is mildly enlarged in size. No displaced fractures. IMPRESSION: No acute intrathoracic process suspected.
--- NOTE | 2024-04-13 19:58 | EDPHYS ---
Physician Documentation [facility] Name: Randy Briones Age: 53 yrs Sex: Male : 1970 Arrival Date: 04/13/2024 Time: 17:52 Bed 6 Private MD: ED Physician Bg Briones HPI: 04/13 18:22 This 53 yrs old Male presents to ER via EMS with complaints of Shortness Of akash Breath. 18:22 The patient has shortness of breath at rest, with light activity. Onset: The akash symptoms/episode began/occurred 2 day(s) ago. The patient's shortness of breath is aggravated by drinking, supine position, is alleviated by nebulizer treatment, application of supplemental oxygen. Associated signs and symptoms: Pertinent positives: productive cough. Severity of symptoms: At their worst the symptoms were mild in the emergency department the symptoms have improved mildly. The patient has experienced similar episodes in the past, multiple times. Historical: - Allergies: 17:55 Lisinopril; mb9 - PMHx: 17:55 Alcoholism; COPD; Hepatitis B (Hypertension); home 02 3LNC PRN; Hypertension; mb9 Osteoporosis; - PSHx: 17:55 Amputation of left index finger; mb9 - Immunization history:: Adult Immunizations up to date. - Infectious Disease History:: Denies. - Social history:: Smoking status: Patient reports the use of cigarette tobacco products, smokes one pack cigarettes per day. ROS: 18:24 Constitutional: Negative for fever, chills, and weight loss, Eyes: Negative for injury, akash pain, redness, and discharge, ENT: Negative for injury, pain, and discharge, Neck: Negative for injury, pain, and swelling, Abdomen/GI: Negative for abdominal pain, nausea, vomiting, diarrhea, and constipation, Back: Negative for injury and pain, : Negative for injury, bleeding, discharge, and swelling, MS/Extremity: Negative for injury and deformity, Skin: Negative for injury, rash, and discoloration, Neuro: Negative for headache, weakness, numbness, tingling, and seizure, Psych: Negative for depression, anxiety, suicide ideation, homicidal ideation, and hallucinations, Allergy/Immunology: Negative for hives, rash, and allergies, Endocrine: Negative for neck swelling, polydipsia, polyuria, polyphagia, and marked weight changes, Hematologic/Lymphatic: Negative for swollen nodes, abnormal bleeding, and unusual bruising, 18:24 Cardiovascular: Positive for chest pain, palpitations, 18:24 Respiratory: Positive for cough, shortness of breath, wheezing, expiratory, Exam: 18:24 Constitutional: This is a well developed, well nourished patient who is awake, alert, akash and in no acute distress. Head/Face: Normocephalic, atraumatic. Eyes: Pupils equal round and reactive to light, extra-ocular motions intact. Lids and lashes normal. Conjunctiva and sclera are non-icteric and not injected. Cornea within normal limits. Periorbital areas with no swelling, redness, or edema. ENT: Nares patent. No nasal discharge, no septal abnormalities noted. Tympanic membranes are normal and external auditory canals are clear. Oropharynx with no redness, swelling, or masses, exudates, or evidence of obstruction, uvula midline. Mucous membranes moist. Neck: Trachea midline, no thyromegaly or masses palpated, and no cervical lymphadenopathy. Supple, full range of motion without nuchal rigidity, or vertebral point tenderness. No Meningismus. Chest/axilla: Normal chest wall appearance and motion. Nontender with no deformity. No lesions are appreciated. Cardiovascular: Regular rate and rhythm with a normal S1 and S2. No gallops, murmurs, or rubs. Normal PMI, no JVD. No pulse deficits. Abdomen/GI: Soft, non-tender, with normal bowel sounds. No distension or tympany. No guarding or rebound. No evidence of tenderness throughout. Back: No spinal tenderness. No costovertebral tenderness. Full range of motion. Male : Normal genitalia with no discharge or lesions. Skin: Warm, dry with normal turgor. Normal color with no rashes, no lesions, and no evidence of cellulitis. MS/ Extremity: Pulses equal, no cyanosis. Neurovascular intact. Full, normal range of motion. Neuro: Awake and alert, GCS 15, oriented to person, place, time, and situation. Cranial nerves II-XII grossly intact. Motor strength 5/5 in all extremities. Sensory grossly intact. Cerebellar exam normal. Normal gait. Psych: Awake, alert, with orientation to person, place and time. Behavior, mood, and affect are within normal limits. 18:24 Respiratory: mild respiratory distress is noted, Respirations: labored breathing, that is mild, Breath sounds: decreased breath sounds, that are mild, rhonchi, that are mild, stridor, is not appreciated, + upper airway congestion. wheezing: expiratory is scattered, 19:18 ECG was reviewed by the Attending Physician. [facility] Vital Signs: 17:56 BP 147 / 89; Pulse 101; Resp 24; Temp 99.1; Pulse Ox 98% on R/A; Weight 83.91 kg; mb9 Height 5 ft. 3 in. ; 19:00 BP 138 / 78; Pulse 96; Resp 20; Pulse Ox 92% on R/A; km8 19:52 BP 153 / 82; Pulse 99; Resp 18; Pulse Ox 96% on R/A; km8 17:56 Body Mass Index 32.77 (83.91 kg, 160.02 cm) 9 MDM: 17:[address] [facility] 18:26 Differential diagnosis: Anemia Anxiety Reaction asthma, Bronchitis CHF exacerbation, akash Chronic Obstructive Pulmonary Disease arrythmia, Myocardial Infarction pneumonia, Pneumothorax reactive airway disease. Antibiotic administration: Levaquin given. Immunization status: Influenza vaccine: within last 5 years. Data reviewed: vital signs, nurses notes, EMS record, lab test result(s), EKG, radiologic studies, plain films. Consideration of Admission/Observation Escalation of care including admission/observation considered. I considered the following discharge prescriptions or medication management in the emergency department Medications were administered in the Emergency Department. See MAR. Independent interpretation of the following test(s) in the Emergency Department EKG: See my EKG interpretation above. Test considered but Not performed: Ultrasound NO 2 D ECHO. 04/13 17:58 Order name: Basic Metabolic Panel; Complete Time: 19:37 [facility] 04/13 17:58 Order name: CBC with Diff; Complete Time: 19:00 [facility] 04/13 17:58 Order name: LFT's; Complete Time: 19:37 [facility] 04/13 17:58 Order name: Magnesium; Complete Time: 19:37 [facility] 04/13 17:58 Order name: NT PRO-BNP; Complete Time: 19:37 [facility] 04/13 17:58 Order name: PT-INR; Complete Time: 19:00 [facility] 04/13 17:58 Order name: Troponin HS; Complete Time: 19:37 [facility] 04/13 17:58 Order name: Blood Culture Adult (2) [facility] 04/13 17:58 Order name: SARS RAPID; Complete Time: 19:00 [facility] 04/13 17:58 Order name: Flu; Complete Time: 19:00 [facility] 04/13 18:10 Order name: Urinalysis w/ reflexes; Complete Time: 19:00 [facility] 04/13 18:10 Order name: UDS; Complete Time: 19:37 [facility] 04/13 18:22 Order name: Lipase; Complete Time: 19:37 [facility] 04/13 17:58 Order name: XRAY Chest (1 view); Complete Time: 19:37 [facility] 04/13 17:58 Order name: Cardiac monitoring; Complete Time: 18:17 [facility] 04/13 17:58 Order name: EKG - Nurse/Tech; Complete Time: 18:17 [facility] 04/13 17:58 Order name: IV Saline Lock; Complete Time: 18:17 [facility] 04/13 17:58 Order name: Labs collected and sent; Complete Time: 18:17 [facility] 04/13 17:58 Order name: O2 Per Protocol; Complete Time: 18:17 [facility] 04/13 17:58 Order name: O2 Sat Monitoring; Complete Time: 18:17 [facility] 04/13 18:29 Order name: Labs - recollect needed: recollect light blue top; Complete Time: 18:35 04/13 19:57 Order name: PO challenge: [place]ATOR[place]; Complete Time: 19:57 akash EC:18 Rate is 96 beats/min. Rhythm is regular. QRS [place] is Normal. LA interval is normal. QRS akash interval is normal at 512 msec. QT interval is normal. No Q waves. T waves are Normal. No ST changes noted. Clinical impression: NSR w/ Non-specific ST/T Changes and No evidence of ischemia. Interpreted by me. Reviewed by me. Administered Medications: 18:15 Drug: MethylPrednisoLONE IVP 125 mg IVP once Route: IVP; Site: right forearm; mb9 19:16 Follow up: Response: No adverse reaction 8 18:16 Drug: Ativan IVP 1 mg IVP once Route: IVP; Site: right forearm; mb9 19:16 Follow up: Response: No adverse reaction 8 18:17 Drug: Levalbuterol Inhalation 2.5 mg Inhalation once Route: Inhalation; mb9 18:17 Drug: Ipratropium Inhalation Aerosol 0.5 mg Inhalation once Route: Inhalation; mb9 18:28 Drug: LevOfloxacin PO 750 mg PO once Route: PO; mb9 19:24 Follow up: Response: No adverse reaction 8 18:28 Drug: GI Cocktail without - (Maalox PO 30 ml, Lidocaine Mucous Membrane 2 % 15 mb9 ml) PO once Route: PO; 19:16 Follow up: Response: No adverse reaction 8 18:28 Drug: Famotidine IVP 20 mg IVP once; dilute with 10 mL 0.9% NaCl; give over 2 minutes mb9 Route: IVP; Site: right forearm; 19:16 Follow up: Response: No adverse reaction 8 19:15 Drug: Banana Bag - (Multivitamin IV 1 amp, NS 0.9% IV 1000 ml, Thiamine IV 100 mg, km8 foLIC Acid IVPB 1 mg) IV at 500 calculated rate once Route: IV; Rate: 500 calculated rate; Site: right antecubital; 19:58 Follow up: IV Status: Completed infusion; IV Intake: 1000ml [facility] 19:16 Drug: Thiamine IV 100 mg IV at bolus once Route: IV; Rate: bolus; Site: right 8 antecubital; 20:01 Follow up: IV Status: Completed infusion; IV Intake: 1ml 8 19:24 Drug: Levalbuterol Inhalation 2.5 mg Inhalation once Route: Inhalation; 8 19:24 Drug: [place] PO 10 mg-325 mg 1 tabs PO once Route: PO; 8 19:57 Follow up: Response: No adverse reaction 8 Disposition Summary: 04/13/24 19:57 Discharge Ordered Notes: Location: Home akash Problem: new akash Symptoms: have improved akash Condition: Fair akash Diagnosis - COPD/ Chronic obstructive pulmonary disease with (acute) exacerbation akash - Tobacco abuse counseling akash - Tobacco use akash - Alcohol abuse aaksh Followup: akash - With: Private Physician - When: 2 - 3 days - Reason: Recheck today's complaints, Continuance of care, Re-evaluation by your physician Followup: akash - With: Brennan Meadows MD - When: 2 - 3 days - Reason: Recheck today's complaints, Re-evaluation by your physician Followup: akash - With: Mayur Martinez MD - When: 2 - 3 days - Reason: Recheck today's complaints, Re-evaluation by your physician Discharge Instructions: - Discharge Summary Sheet akash - Chronic Obstructive Pulmonary Disease akash - Steps to Quit Smoking akash - Health Risks of Smoking akash - Chronic Obstructive Pulmonary Disease Exacerbation akash - Steps to Quit Smoking, [id number] akash - Cough, Adult, [id number] akash - Aspirin and Your Heart akash - Cough, Adult akash - Chronic Obstructive Pulmonary Disease Exacerbation, [id number] [facility] Forms: - Medication Reconciliation Form [facility] - Antibiotic Education akash - Prescription Opioid Use [facility] - Patient Portal Instructions [facility] - Leadership Thank You Letter [facility] Prescriptions: - albuterol sulfate 90 mcg/actuation Inhalation HFA Aerosol Inhaler - inhale 2 puff INHALATION route every 4 to 6 hours as needed for shortness of akash breath or wheezing; 1 unit; Refills: 0, Product Selection Permitted - Pepcid 20 mg Oral tablet - take 1 tablet ORAL route every 12 hours for 21 days; 42 tablet; Refills: 0, [facility] Product Selection Permitted - Albuterol Sulfate 2.5 mg /3 mL (0.083 %) Inhalation Solution for Nebulization - inhale 1 unit NEBULIZATION route every 8 hours As needed; 25 unit; Refills: 0, [facility] Product Selection Permitted - Prednisone 20 mg Oral Tablet - take 2 tablets ORAL route once daily for 5 days; 10 tablet; Refills: 0, Product [facility] Selection Permitted - levofloxacin 500 mg Oral tablet - take 1 tablet ORAL route once daily for 7 days; 7 tablet; Refills: 0, Product [facility] Selection Permitted Signatures: Dispatcher [employer] EDMS Leticia Alvarez Corey, MD MD cha Breneman, Bianca Murrieta RN RN mb9 Mary Valenzuela RN RN km8 Corrections: (The following items were deleted from the chart) 17:58 17:58 BASIC METABOLIC PANEL+C.LAB.BRZ ordered. EDMS EDMS 17:58 17:58 CBC+H.LAB.BRZ ordered. EDMS EDMS 17:58 17:58 HEPATIC FUNCTION+C.LAB.BRZ ordered. EDMS EDMS 17:58 17:58 MAGNESIUM+C.LAB.BRZ ordered. EDMS EDMS 17:58 17:58 PROBNP+C.LAB.BRZ ordered. EDMS EDMS 17:58 17:58 PROTIME (+INR)+COAG.LAB.BRZ ordered. EDMS EDMS 17:58 17:58 Troponin High Sensitivity+C.LAB.BRZ ordered. EDMS EDMS 17:59 17:58 BLOOD CULTURE*+BA.LAB.BRZ ordered. EDMS EDMS 17: 17:58 SARS-COV-2 Antigen Rapid+I.LAB.BRZ ordered. EDMS EDMS 17:59 17:58 Influenza Screen (A \T\ B)+BA.LAB.BRZ ordered. EDMS EDMS 17: 17:59 Chest Single View+RAD.RAD.BRZ ordered. EDMS EDMS
--- NOTE | 2024-04-13 19:58 | ER ---
Nurse's Notes [facility] Name: Randy Briones Age: 53 yrs Sex: Male : 1970 Arrival Date: 04/13/2024 Time: 17:52 Bed 6 Private MD: Diagnosis: COPD/ Chronic obstructive pulmonary disease with (acute) exacerbation;Tobacco abuse counseling;Tobacco use;Alcohol abuse Presentation: 04/13 17:56 Coronavirus screen: Vaccine status: Patient reports receiving the 2nd dose of the covid mb9 vaccine. Ebola Screen: No symptoms or risks identified at this time. Initial Sepsis Screen: Does the patient meet any 2 criteria? No. Patient's initial sepsis screen is negative. Does the patient have a suspected source of infection? No. Patient's initial sepsis screen is negative. Risk Assessment: Do you want to hurt yourself or someone else? Patient reports no desire to harm self or others. Onset of symptoms was April 13, 2024. 17:56 Acuity: CANDACE 3 mb9 17:56 Method Of Arrival: EMS: [facility] mb9 17:56 Chief complaint: EMS states: "toned out for SOB, chills. and N/V that started today. mb9 A\\T\\A treatment given, 1 liter of 0.9% NS via 20 g right AC, and 4 mg Zofran.". Triage Assessment: 17:55 General: Appears uncomfortable, Behavior is cooperative. mb9 17:55 Pain: Denies pain. EENT: No signs and/or symptoms were reported regarding the EENT mb9 system. Neuro: Level of Consciousness is awake, alert, obeys commands, Oriented to person, place, time, situation, Appropriate for age. Cardiovascular: Heart tones S1 S2 present Patient's skin is warm and dry. Respiratory: Reports cough that is Airway is patent Respiratory effort is even, unlabored, Respiratory pattern is tachypnea Breath sounds with wheezes bilaterally. GI: Abdomen is round non-distended, Bowel sounds present X 4 quads. Abd is soft and non tender X 4 quads. Reports nausea, vomiting. : No signs and/or symptoms were reported regarding the genitourinary system. Derm: Skin is pink, warm \\T\\ dry. Musculoskeletal: Range of motion: intact in all extremities. Historical: - Allergies: 17:55 Lisinopril; mb9 - PMHx: 17:55 Alcoholism; COPD; Hepatitis B (Hypertension); home 02 3LNC PRN; Hypertension; mb9 Osteoporosis; - PSHx: 17:55 Amputation of left index finger; mb9 - Immunization history:: Adult Immunizations up to date. - Infectious Disease History:: Denies. - Social history:: Smoking status: Patient reports the use of cigarette tobacco products, smokes one pack cigarettes per day. Screenin:56 [facility] ED Fall Risk Assessment (Adult) History of falling in the last 3 months, mb9 including since admission No falls in past 3 months (0 pts) Confusion or Disorientation No (0 pts) Intoxicated or Sedated No (0 pts) Impaired Gait No (0 pts) Mobility Assist Device Used No (0 pt) Altered Elimination No (0 pt) Score/Fall Risk Level 0 - 2 = Low Risk Oriented to surroundings, Maintained a safe environment, Educated pt \\T\\ family on fall prevention, incl call for assistance when getting out of bed. Abuse screen: Denies threats or abuse. Nutritional screening: No deficits noted. Tuberculosis screening: No symptoms or risk factors identified. Assessment: 18:19 Reassessment: see triage assessment. mb9 19:51 Reassessment: Patient appears in no apparent distress at this time. Patient and/or km8 family updated on plan of care and expected duration. Pain level reassessed. Patient is alert, oriented x 3, equal unlabored respirations, skin warm/dry/pink. General: Appears in no apparent distress. comfortable, Behavior is calm, cooperative, appropriate for age. Pain: Denies pain. Neuro: Level of Consciousness is awake, alert, obeys commands, Oriented to person, place, time, situation. Cardiovascular: Denies chest pain, shortness of breath. Respiratory: Airway is patent Respiratory effort is even, labored, Respiratory pattern is regular, symmetrical, Denies shortness of breath. GI: Patient currently denies abdominal pain, nausea. Derm: No signs and/or symptoms reported regarding the dermatologic system. Skin is intact, is healthy with good turgor, Skin is dry, Skin is pink, warm \\T\\ dry. normal, Skin temperature is warm. Musculoskeletal: No signs and/or symptoms reported regarding the musculoskeletal system. Range of motion: intact in all extremities. Vital Signs: 17:56 BP 147 / 89; Pulse 101; Resp 24; Temp 99.1; Pulse Ox 98% on R/A; Weight 83.91 kg; mb9 Height 5 ft. 3 in. ; 19:00 BP 138 / 78; Pulse 96; Resp 20; Pulse Ox 92% on R/A; km8 19:52 BP 153 / 82; Pulse 99; Resp 18; Pulse Ox 96% on R/A; km8 17:56 Body Mass Index 32.77 (83.91 kg, 160.02 cm) mb9 ED Course: 17:55 Patient arrived in ED. mb9 17:55 Arm band placed on. mb9 17:55 Placed in gown. Bed in low position. Call light in reach. Side rails up X 1. Provided danya Education on: press call light if needing anything. Client placed on continuous cardiac and pulse oximetry monitoring. NIBP monitoring applied. merchandise team manager on. 17:56 Triage completed. mb9 17:56 Bg Briones MD is Attending Physician. akash 18:05 Second set of blood cultures drawn by in. mb9 18:15 First set of blood cultures drawn by me. mb9 18:17 Initial lab(s) drawn, by me, sent to lab. EKG done, by ED staff, reviewed by Bg Briones MD COVID swab sent to lab. Flu and/or RSV swab sent to lab. 18:17 Maintain EMS IV. Dressing intact. Good blood return noted. Site clean \\T\\ dry. Gauge \\T\\ mb 9 site: 20g right FA. 18:19 Bianca Shi RN is Primary Nurse. mb9 18:19 No provider procedures requiring assistance completed. mb9 18:35 UDS Sent. ld1 18:35 Urinalysis w/ reflexes Sent. ld1 18:35 Lipase Sent. ld1 19:04 Report given to Kay RN. mb9 19:16 XRAY Chest (1 view) In Process Unspecified. EDMS 19:50 IV discontinued, intact, bleeding controlled, No redness/swelling at site. Pressure km8 dressing applied. 19:57 Brennan Meadows MD is Referral Physician. [facility] 19:58 Mayur Martinez MD is Referral Physician. akash Administered Medications: 18:15 Drug: MethylPrednisoLONE IVP 125 mg IVP once Route: IVP; Site: right forearm; mb9 19:16 Follow up: Response: No adverse reaction km8 18:16 Drug: Ativan IVP 1 mg IVP once Route: IVP; Site: right forearm; mb9 19:16 Follow up: Response: No adverse reaction km8 18:17 Drug: Levalbuterol Inhalation 2.5 mg Inhalation once Route: Inhalation; mb9 18:17 Drug: Ipratropium Inhalation Aerosol 0.5 mg Inhalation once Route: Inhalation; mb9 18:28 Drug: LevOfloxacin PO 750 mg PO once Route: PO; mb9 19:24 Follow up: Response: No adverse reaction 8 18:28 Drug: GI Cocktail without - (Maalox PO 30 ml, Lidocaine Mucous Membrane 2 % 15 mb9 ml) PO once Route: PO; 19:16 Follow up: Response: No adverse reaction 8 18:28 Drug: Famotidine IVP 20 mg IVP once; dilute with 10 mL 0.9% NaCl; give over 2 minutes mb9 Route: IVP; Site: right forearm; 19:16 Follow up: Response: No adverse reaction 8 19:15 Drug: Banana Bag - (Multivitamin IV 1 amp, NS 0.9% IV 1000 ml, Thiamine IV 100 mg, km8 foLIC Acid IVPB 1 mg) IV at 500 calculated rate once Route: IV; Rate: 500 calculated rate; Site: right antecubital; 19:58 Follow up: IV Status: Completed infusion; IV Intake: 1000ml 8 19:16 Drug: Thiamine IV 100 mg IV at bolus once Route: IV; Rate: bolus; Site: right 8 antecubital; 20:01 Follow up: IV Status: Completed infusion; IV Intake: 1ml 8 19:24 Drug: Levalbuterol Inhalation 2.5 mg Inhalation once Route: Inhalation; km8 19:24 Drug: [place] PO 10 mg-325 mg 1 tabs PO once Route: PO; km8 19:57 Follow up: Response: No adverse reaction 8 Medication: 17:55 VIS not applicable for this client. mb9 Intake: 19:58 IV: 1000ml; Total: 1000ml. km8 20:01 IV: 1ml; Total: 1001ml. 8 Outcome: 19:57 Discharge ordered by MD. bustos 20:01 Discharged to home ambulatory, km8 20:01 Condition: good 20:01 Discharge instructions given to patient, Instructed on discharge instructions, follow up and referral plans. medication usage, Demonstrated understanding of instructions, follow-up care, medications, Prescriptions given X 5 20:02 Patient left the ED. km8 Signatures: Dispatcher [employer] EDMS Bg Briones MD MD cha Sims, Lauren RN RN ld1 Bianca Shi RN RN mb9 Mary Valenzuela RN RN km8 Corrections: (The following items were deleted from the chart) 20:02 20:01 Discharge instructions given to patient, Instructed on discharge instructions, km8 follow up and referral plans. medication usage, Demonstrated understanding of instructions, follow-up care, medications, Prescriptions given X 4, km8
[2024-04-13 20:37] VITALS: BP 153/82; TEMP 99.1; O2SAT 96
--- NOTE | 2024-04-16 11:50 | EKG ---
Test Date: 2024-04-13 Test Time: 18:14:22 Meter Tester Primary: Robina PATEL MEASUREMENT RESULTS: Intervals: Rate: 96 CT: 134 QRSD: 108 QT: 406 QTc: 512 [place]: P: 49 CT: 134 QRS: 85 T: 83 INTERPRETIVE STATEMENTS: Normal sinus rhythm Prolonged QT Abnormal ECG Compared to ECG 04/05/2024 12:25:31 Prolonged QT interval now present Sinus tachycardia no longer present Incomplete right bundle-branch block no longer present Electronically Signed On 04-16-24 11:48:40 CDT by Roberto Woodson
== END 2024-04-13 20:02 | disposition home or self-care (01) ==
LOC: ER 17:52
DX: J44.1 Chronic obstructive pulmonary disease with (acute) exacerbation (principal); F10.20 Alcohol dependence, uncomplicated; Z72.0 Tobacco use; Z71.6 Tobacco abuse counseling; Z11.52 Encounter for screening for COVID-19
CPT/HCPCS: 96365; 93005; 87040 ×2; 85025; 81001; 80048; 36415; 83735; 85610; 80076; 84484; 83690; 83880; 80307; 87804 ×2; 71045; 96375; 99285; 87811; J3411; J7614 ×2; J7644; J2919; J7030

== ENCOUNTER 2024-04-20 04:10 | Inpatient (IN) | payer OTHER ==
--- OUTSIDE RECORDS SUMMARY | 2024-04-20 04:15 | XMS REPORT | Continuity of Care Document ---
Author Name Unknown Address [address] [facility] [address] [place] [address] [facility] Address [address] [facility] [address] [place] [address] Care Team Providers Care Bit Tapper Name Role Phone ADRIANNA LOPEZ Primary Care Physician Unavailab DARIEN Posey Attending Clinician Unavailable MINNA ORTA Attending Clinician Unavailab WENDY High Attending Clinician Unava SHARATH Mancera Attending Clinician Unavailable PEG CAMP Attending Clinician Unavailable Peg Camp NP Attending Clinician [phone] URSULA QUINTANILLA Attending Clinician Unavailable KEISHA DAVENPORT Attending Clinician UnaKeisha Carver MD Attending Clinician + Christina Victoria Attending Clinician [phone] JAC NAVARRO Attending Clinician Unavailable Jac Navarro MD Attending Clinician [phone] TYLER ROWE Attending Clinician Unavailab MELINDA Boothe Attending Clinician Unavailable Melinda Maciel DO Attending Clinician [phone] CHRISTY HOLLIDAY Attending Clinician Unavailable Christy Holliday MD Attending Clinician [phone] MARIA ELENA [facility]AN [facility] Attending Clinicbon n Unavailable DENISE SUNG Attending Clinician Unavailable KARLEY ADAMS Attending Clinician Unavailable JAC NAVARRO Admitting Clinician Unavailable MELINDA MACIEL Admitting Clinician Unavailable CHRISTY HOLLIDAY Admitting Clinician Unavailable Payers Payer Name Policy Type Policy Number Effective Date Expirati on Date Source [facility] VINOD LEE COPAY FOCUS 9 [id number] 2024 [facility]00[id number] 2023 00:00:00 2024 00:00:00 [employer] [id number] 2023 00:00:00 [employer] 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 94 ON 9 [id number] 2023 00:00:00 Problems Condition Name Condition Details Condition Category Status Onset Date Resolution Date Last Treatment Date Treating Clinician Comments Source Acute exacerbati on of chronic obstructiv e pulmonary disease (COPD) Acute exacerbati on of chronic obstructiv e pulmonary disease (COPD) Disease Active 03-24 00:00: 00 [facility] Obesity (BMI 30-39.9) Obesity (BMI 30-39.9) Disease Active 03-24 00:00: 00 [facility] Allergies, Adverse Reactions, Alerts Allergy Name Allergy Type Status Severity Reaction(s) Onset Date Inactive Date Treating Clinician Comments Source Lisinopr il Propensi ty to adverse reaction s Active Anaphylaxis 03-24 00:00: 00 [facility] LISINOPR [place] DRUG INGREDI Active Anaphylaxis 03-24 00:00: 00 [facility] Social History Social Habit Start Date Stop Date Quantity Comments Source History of tobacco use Smokes tobacco daily [facility] of Social function 2024-02-08 00:00:00 2024-02-08 00:00:[address] [facility] Alcohol intake 2024-02-08 00:00:00 2024-02-08 00:00:00 4.29 /d [facility] Exposure to SARS-CoV-2 (event) 2022-10-04 00:00:00 2022-10-14 10:25:[address] [facility] Tobacco use and exposure 2018-03-24 00:00:00 2018-03-24 00:00:00 User of smokeless tobacco [facility] Tobacco Comment 2018-03-24 00:00:00 2018-03-24 00:00:[address] [facility] Sex Ass[birth year] At 1970 00:00:00 1970 00:00:[address] [facility] Smoking Status Start Date Stop Date Source Smokes tobacco daily 2018-03-24 00:00:[address] [facility] Medications Ordered Medication Name Filled Medication Name Start Date Stop Date Current Medication? Ordering Clinician Indication Dosage Frequency Signature (SIG) Comments Components Source ketorolac (TORADOL) injection 30 mg 02-17 03:15: 00 02-17 15:14 :00 Yes 30mg 30 mg, Slow IV Push, ONCE, 1 dose, On Thu02/17/24 at 2215, Routine [facility] methylpredn isolone sod succ (SOLU-MEDRO L) injection 125 mg 02-17 03:00: 00 02-17 14:59 :00 Yes 125mg 125 mg, Intravenou s, ONCE, 1 dose, On Thu02/17/24 at 2200, 2 mL [facility] ipratropium -albuteroL (DUONEB) 0.5 mg-3 mg(2.5 mg base)/3 mL nebulizer solution 6 mL 02-17 03:00: 00 02-17 14:59 :00 Yes 6mL 6 mL, Inhalation , ONCE NOW, 1 dose, On Thu02/17/24 at 2200, Routine [facility] NaCl 0.9% (NS) bolus infusion 1,000 mL 02-17 03:00: 00 02-17 14:59 :00 Yes 1000mL at 999 mL/hr, 1,000 mL, IV Infusion, ONCE, 1 dose, On Thu02/17/24 at 2200, LAURYN [facility] triamterene -hydrochlor othiazide 37.5-25 mg per capsule 02-16 20:52: 37 02-16 00:00 :00 No 1{capsu le} Take 1 capsule by mouth every morning. [facility] albuterol 5 mg/mL nebulizer solution 02-16 20:51: 42 02-16 00:00 :00 No 2.5mg Inhale 2.5 mg every 6 (six) hours as needed for Wheezing or Shortness of Breath. [facility] ketorolac (TORADOL) injection 15 mg 02-08 03:00: 00 02-08 02:21 :00 No 15mg 15 mg, Slow IV Push, ONCE, 1 dose, On Thu02/08/24 at 2200, Routine [facility] iopamidol (ISOVUE 370-500 mL) injection 100 mL 02-07 22:30: 00 02-07 22:30 :00 Yes [id number] 100mL 100 mL, Intravenou s, ONCE, 1 dose, On Thu02/08/24 at 1730, Routine [facility] ipratropium -albuteroL (DUONEB) 0.5 mg-3 mg(2.5 mg base)/3 mL nebulizer solution 3 mL 02-07 21:15: 00 02-07 20:45 :00 No 3mL 3 mL, Inhalation , ONCE, 1 dose, On Thu02/08/24 at 1615, Routine [facility] morpHINE (2 mg/mL) injection 4 mg 02-07 21:15: 00 02-07 20:27 :00 No 4mg 4 mg, Slow IV Push, ONCE, 1 dose, On Thu02/08/24 at 1615, STAT [facility] ondansetron (ZOFRAN (PF)) injection 4 mg 02-07 21:15: 00 02-07 20:22 :00 No 4mg 4 mg, Slow IV Push, ONCE, 1 dose, On Thu02/08/24 at 1615, [facility] magnesium sulfate in water 2 gram/50 mL (4 %) infusion 2 g 02-07 21:00: 00 02-07 21:30 :00 No 2g 2 g, IV Piggyback, Administer over 60 Minutes, ONCE, 1 dose, On Thu02/08/24 at 1600, [facility] ipratropium -albuteroL (DUONEB) 0.5 mg-3 mg(2.5 mg base)/3 mL nebulizer solution 3 mL 02-07 20:30: 00 02-07 19:31 :00 No 3mL 3 mL, Inhalation , ONCE, 1 dose, On Thu02/08/24 at 1530, [facility] HYDROcodone -acetaminop hen (NORCO) 10-325 mg tablet 1 tablet 01-13 13:15: 00 01-13 12:15 :00 No 1{tbl} 1 tablet, Oral, ONCE, 1 dose, On Thu01/14/24 at 0715, [facility] ipratropium -albuteroL (DUONEB) 0.5 mg-3 mg(2.5 mg base)/3 mL nebulizer solution 3 mL 01-13 13:00: 00 01-13 11:53 :00 No 3mL 3 mL, Inhalation , ONCE NOW, 1 dose, On Thu01/14/24 at 0700, [facility] ondansetron (ZOFRAN (PF)) injection 4 mg 01-13 11:30: 00 01-13 11:37 :00 No 4mg 4 mg, Slow IV Push, ONCE, 1 dose, On Thu01/14/24 at 0530, [facility] morpHINE (4 mg/mL) injection 4 mg 01-13 11:30: 00 01-13 11:37 :00 No 4mg 4 mg, Slow IV Push, ONCE, 1 dose, On Kym 01/14/24 at 0530, STAT [facility] azithromyci n (ZITHROMAX Z-PORTER) 250 mg tablet 01-13 00:00: 00 02-16 00:00 :00 No [id number] Take 500 mg on day 1 then 250 mg on days 2-5 [facility] predniSONE 20 mg tablet 01-13 00:00: 00 02-16 00:00 :00 No [id number] Take 1 po tid x 2 days, then take 1 po bid x 3 days, then take 1 po daily x 3 days. [facility] acetaminoph en-codeine 300-30 mg tablet 01-13 00:00: 00 01-21 04:59 :00 No [id number] 1{tbl} Take 1 tablet by mouth every 6 (six) hours as needed for Pain (scale 7-10) (severe cough) for up to 7 days. Indication s: acute pain, severe cough [facility] clonazePAM 1 mg tablet 12-26 00:00: 00 02-16 00:00 :00 No 1mg Take 1 tablet by mouth at bedtime as needed for Other (anxiety). [facility] KCL (KLOR-CON M20) tablet 40 mEq 12-23 05:00: 00 12-23 05:07 :00 No 40meq 40 mEq, Oral, ONCE, 1 dose, On Thu12/22/23 at 2300, LAURYN [facility] NaCl 0.9% (NS) bolus infusion 1,000 mL 12-23 05:00: 00 12-23 05:09 :00 No 1000mL at 999 mL/hr, 1,000 mL, IV Infusion, ONCE, 1 dose, On Thu12/22/23 at 2300, LAURYN [facility] ondansetron (ZOFRAN (PF)) injection 4 mg 12-23 04:30: 12-23 04:24 :00 No 4mg 4 mg, Slow IV Push, ONCE, 1 dose, On Thu12/22/23 at 2230, LAURYN [facility] maalox:diph enhydrAMINE :lidocaine 2 % viscous 1:1:1 ([facility]) oral suspension 15 mL 12-23 04:15: 00 12-23 04:17 :00 No 15mL 15 mL, Oral, ONCE, 1 dose, On Thu12/22/23 at 2215, [facility] famotidine (PEPCID (PF)) injection 20 mg 12-23 04:15: 00 12-23 04:15 :00 No 20mg 20 mg, Slow IV Push, ONCE, 1 dose, On Thu12/22/23 at 2215, LAURYN [facility] HYDROcodone -acetaminop hen (NORCO) 10-325 mg tablet 1 tablet 12-22 04:30: 00 12-22 16:29 :00 No 1{tbl} 1 tablet, Oral, ONCE, 1 dose, On Thu12/21/23 at 2230, Routine [facility] pantoprazol e (PROTONIX) 80 mg in NaCl 0.9% (NS) 20 mL syringe 12-22 04:15: 00 12-22 16:14 :00 No 80mg 80 mg, IV Push, ONCE, 1 dose, On Thu12/21/23 at 2215, Administer over 2 Minutes, 20 mL [facility] iopamidol (ISOVUE 370-500 mL) injection 100 mL 12-22 03:30: 00 12-22 03:30 :00 No [id number] 100mL 100 mL, Intravenou s, ONCE, 1 dose, On Thu12/21/23 at 2130, Routine [facility] morpHINE (4 mg/mL) injection 4 mg 12-22 03:30: 00 12-22 02:16 :00 No 4mg 4 mg, Slow IV Push, ONCE, 1 dose, On 2/12/24 at 2130, Routine [facility] ondansetron (ZOFRAN (PF)) injection 4 mg 12-22 02:45: 00 12-22 02:02 :00 No 4mg 4 mg, Slow IV Push, ONCE, 1 dose, On Thu12/21/23 at 2045, Routine [facility] hydrocortis one 25 mg suppository 12-22 00:00: 00 Yes [id number] 25mg Insert 1 Suppositor y into rectum 2 (two) times daily as needed for Rectal itching/pa in. [facility] ondansetron 4 mg disintegrat ing tablet 12-22 00:00: 00 02-16 00:00 :00 No [id number] 4mg Take 1 tablet by mouth every 8 (eight) hours as needed for Nausea and Vomiting (N/V). [facility] amoxicillin -clavulanat e 875-125 mg per tablet 12-22 00:00: 00 01-02 05:59 :00 No [id number] 1{tbl} Take 1 tablet by mouth every 12 (twelve) hours for 10 days. [facility] methylpredn isolone sod succ (SOLU-MEDRO L) injection 125 mg 2022-11 08:45: 00 10-27 20:44 :00 No 125mg 125 mg, Slow IV Push, ONCE, 1 dose, On Thu10/27/23 at 0245, STAT [facility] ipratropium -albuteroL (DUONEB) 0.5 mg-3 mg(2.5 mg base)/3 mL nebulizer solution 3 mL 2022-11 08:45: 00 10-27 20:44 :00 No 3mL 3 mL, Inhalation , ONCE NOW, 1 dose, On Thu10/27/23 at 0245, LAURYN [facility] diazePAM (VALIUM) tablet 10 mg 2022-11 07:45: 00 10-27 19:44 :00 No 10mg 10 mg, Oral, ONCE, 1 dose, On Thu10/27/23 at 0145, LAURYN [facility] levoFLOXaci n (LEVAQUIN) tablet 500 mg 2022-11 07:45: 00 10-27 19:44 :00 No 500mg 500 mg, Oral, ONCE, 1 dose, On Thu10/27/23 at 0145, LAURYN
Re ason for Anti-Infec tive: Empiric Non-Surgic al Prophylaxi s
Durat ion of therapy: Once (ED) [facility] iopamidol (ISOVUE 370-500 mL) injection 70 mL 2021-11 18:30: 00 10-14 18:30 :00 No [id number] 70mL 70 mL, Intravenou s, ONCE, 1 dose, On Thu10/14/22 at 1230, Routine [facility] methylpredn isolone sod succ (SOLU-MEDRO L) injection 125 mg 2021-11 18:00: 00 Yes 125mg 125 mg, Intravenou s, Q6H, First dose on Thu10/14/22 at 1200, Until Discontinu ed, Routine [facility] furosemide (LASIX) injection 40 mg 2021-11 17:45: 00 10-14 16:39 :00 No 40mg 40 mg, IV Push, ONCE, 1 dose, On Thu10/14/22 at 1145, LAURYN [facility] ipratropium -albuteroL (DUONEB) 0.5 mg-3 mg(2.5 mg base)/3 mL nebulizer solution 3 mL 2021-11 17:30: 00 10-14 16:41 :00 No 3mL 3 mL, Inhalation , ONCE, 1 dose, On Thu10/14/22 at 1130, Routine [facility] FENTanyl PF (SUBLIMAZE (PF)) injection 50 mcg 2021-11 16:45: 00 10-14 16:39 :00 No 50ug 50 mcg, Slow IV Push, ONCE, 1 dose, On Thu10/14/22 at 1045, Routine [facility] levoFLOXaci n 750 mg tablet 2022-1 2-06 00:00: 00 02-16 00:00 :00 No [id number] 750mg Take 1 tablet by mouth every 24 (twenty-fo ur) hours. [facility] HYDROcodone -acetaminop hen (NORCO) 10-325 mg tablet 1 tablet 03-12 12:15: 00 03-12 11:21 :00 No 1{tbl} 1 tablet, Oral, ONCE, 1 dose, On Thu03/12/22 at 0715, Routine [facility] HYDROcodone -acetaminop hen 10-325 mg tablet 03-12 00:00: 00 03-20 04:59 :00 No [id number] 1{tbl} Take 1 tablet by mouth every 6 (six) hours as needed for Pain (scale 7-10) for up to 7 days. Indication s: acute pain [facility] ipratropium -albuteroL (DUONEB) 0.5 mg-3 mg(2.5 mg base)/3 mL nebulizer solution 3 mL 02-20 13:00: 00 Yes 3mL 3 mL, Inhalation , QID, First dose on Thu02/20/22 at 0800, Until Discontinu ed, Routine [facility] methylPREDN ISolone sod succ (SOLU-MEDRO L (PF)) injection 40 mg 02-20 11:45: 00 02-20 10:43 :00 No 40mg 40 mg, Intravenou s, ONCE, 1 dose, On Thu02/20/22 at 0645, STAT [facility] foLIC acid (FOLATE) tablet 1 mg 02-20 11:45: 00 02-20 10:41 :00 No 1mg 1 mg, Oral, ONCE, 1 dose, On Thu02/20/22 at 0645, LAURYN [facility] thiamine (VITAMIN B1) injection 100 mg 02-20 11:45: 00 02-20 10:43 :00 No 100mg 100 mg, Intravenou s, ONCE, 1 dose, On Thu02/20/22 at 0645, LAURYN [facility] LORazepam (ATIVAN) injection 2 mg 02-20 11:45: 00 02-20 10:42 :00 No 2mg 2 mg, Slow IV Push, ONCE, 1 dose, On [facility] 02/20/22 at 0645, STAT [facility] ipratropium -albuteroL (DUONEB) 0.5 mg-3 mg(2.5 mg base)/3 mL nebulizer solution 3 mL 02-20 10:30: 00 02-20 09:34 :00 No 3mL 3 mL, Inhalation , ONCE, 1 dose, On [facility] 02/20/22 at 0530, Routine [facility] albuterol 90 mcg/actuati on inhaler 02-20 00:00: 00 Yes [id number] 2{puff} Inhale 2 Puffs every 4 (four) hours as needed for Wheezing or Shortness of Breath. [facility] triamterene -hydrochlor othiazid 37.5-25 mg tablet 02-20 00:00: 00 Yes [id number] 1{tbl} Take 1 tablet by mouth daily. [facility] chlordiazeP OXIDE 25 mg capsule 02-20 00:00: 00 Yes [id number] 25mg Take 1 capsule by mouth every 6 (six) hours as needed for Anxiety, Agitation, Heart Rate => 100 or Detox. [facility] predniSONE 10 mg tablet 02-20 00:00: 00 02-16 00:00 :00 No [id number] TAKE ONE TABLET BY MOUTH DAILY [facility] albuterol 2.5 mg /3 mL (0.083 %) nebulizer solution 02-20 00:00: 00 02-16 00:00 :00 No [id number] 2.5mg Inhale 3 mL every 4 (four) hours. May also nebulize one extra every 6 hours. [facility] budesonide- formoteroL 160-4.5 mcg/actuati on inhaler 02-20 00:00: 00 02-16 00:00 :00 No [id number] 2{puff} Inhale 2 Puffs 2 (two) times daily. [facility] albuterol 5 mg/mL nebulizer solution 07-16 14:02: 20 Yes 2.5mg Inhale 2.5 mg every 6 (six) hours as needed for Wheezing or Shortness of Breath. [facility] budesonide- formoterol 160-4.5 mcg/actuati on inhaler 07-16 00:00: 00 Yes 2{puff} Inhale 2 Puffs 2 (two) times daily. [facility] albuterol 2.5 mg /3 mL (0.083 %) nebulizer solution 07-16 00:00: 00 Yes 2.5mg Inhale 3 mL every 4 (four) hours as needed for Wheezing or Shortness of Breath. [facility] triamterene -hydrochlor othiazide 37.5-25 mg per capsule 03-26 16:32: 14 Yes 1{capsu le} Take 1 capsule by mouth every morning. [facility] amLODIPine 10 mg tablet 03-26 16:32: 14 Yes 10mg Take 10 mg by mouth at bedtime. [facility] gabapentin 100 mg capsule 03-26 16:32: 14 Yes 100mg Take 100 mg by mouth 2 (two) times daily as needed (MSK pain). [facility] foLIC acid 1 mg tablet 03-26 16:32: 14 Yes 1mg Take 1 mg by mouth daily. [facility] budesonide- formoterol 160-4.5 mcg/actuati on inhaler 03-26 00:00: 00 02-16 00:00 :00 No 2{puff} Inhale 2 Puffs 2 (two) times daily. [facility] Immunizations Ordered Immunization Name Filled Immunization Name Date Status Comments Source SARS-COV-2 COVID-19 PFIZER VACCINE 2021-02-03 00:00:[address] [facility] SARS-COV-2 COVID-19 PFIZER VACCINE 2021-02-03 00:00:[address] [facility] SARS-COV-2 COVID-19 PFIZER VACCINE 2021-02-03 00:00:[address] [facility] SARS-COV-2 COVID-19 PFIZER VACCINE 2021-01-13 00:00:[address] [facility] SARS-COV-2 COVID-19 PFIZER VACCINE 2021-01-13 00:00:[address] [facility] SARS-COV-2 COVID-19 PFIZER VACCINE 2021-01-13 00:00:[address] [facility] Pneumococcal Polysaccharide, PPSV23 (PNEUMOVAX) 2018-03-26 00:00:[address] [facility] Influenza Virus Vaccine Quad IM 3+ YRS 2018-03-26 00:00:[address] [facility] Pneumococcal Polysaccharide, PPSV23 (PNEUMOVAX) 2018-03-26 00:00:[address] [facility] Influenza Virus Vaccine Quad IM 3+ YRS 2018-03-26 00:00:[address] [facility] Pneumococcal Polysaccharide, PPSV23 (PNEUMOVAX) 2018-03-26 00:00:[address] [facility] Influenza Virus Vaccine Quad IM 3+ YRS 2018-03-26 00:00:[address] [facility] Pneumococcal Polysaccharide, PPSV23 (PNEUMOVAX) Unknown Completed [facility] Influenza Virus Vaccine Quad IM 3+ YRS Unknown Completed [facility] SARS-COV-2 COVID-19 PFIZER VACCINE Unknown Completed [facility] SARS-COV-2 COVID-19 PFIZER VACCINE Unknown Completed [facility] Pneumococcal Polysaccharide, PPSV23 (PNEUMOVAX) Unknown Completed [facility] Influenza Virus Vaccine Quad IM 3+ YRS Unknown Completed [facility] SARS-COV-2 COVID-19 PFIZER VACCINE Unknown Completed [facility] SARS-COV-2 COVID-19 PFIZER VACCINE Unknown Completed [facility] Pneumococcal Polysaccharide, PPSV23 (PNEUMOVAX) Unknown Completed [facility] Influenza Virus Vaccine Quad IM 3+ YRS Unknown Completed [facility] SARS-COV-2 COVID-19 PFIZER VACCINE Unknown Completed [facility] SARS-COV-2 COVID-19 PFIZER VACCINE Unknown Completed [facility] Pneumococcal Polysaccharide, PPSV23 (PNEUMOVAX) Unknown Completed [facility] Influenza Virus Vaccine Quad IM 3+ YRS Unknown Completed [facility] SARS-COV-2 COVID-19 PFIZER VACCINE Unknown Completed [facility] SARS-COV-2 COVID-19 PFIZER VACCINE Unknown Completed [facility] Pneumococcal Polysaccharide, PPSV23 (PNEUMOVAX) Unknown Completed [facility] Influenza Virus Vaccine Quad IM 3+ YRS Unknown Completed [facility] SARS-COV-2 COVID-19 PFIZER VACCINE Unknown Completed [facility] SARS-COV-2 COVID-19 PFIZER VACCINE Unknown Completed [facility] Pneumococcal Polysaccharide, PPSV23 (PNEUMOVAX) Unknown Completed [facility] Influenza Virus Vaccine Quad IM 3+ YRS Unknown Completed [facility] SARS-COV-2 COVID-19 PFIZER VACCINE Unknown Completed [facility] SARS-COV-2 COVID-19 PFIZER VACCINE Unknown Completed [facility] Pneumococcal Polysaccharide, PPSV23 (PNEUMOVAX) Unknown Completed [facility] Influenza Virus Vaccine Quad IM 3+ YRS Unknown Completed [facility] SARS-COV-2 COVID-19 PFIZER VACCINE Unknown Completed [facility] SARS-COV-2 COVID-19 PFIZER VACCINE Unknown Completed [facility] Pneumococcal Polysaccharide, PPSV23 (PNEUMOVAX) Unknown Completed [facility] Influenza Virus Vaccine Quad IM 3+ YRS Unknown Completed [facility] SARS-COV-2 COVID-19 PFIZER VACCINE Unknown Completed [facility] SARS-COV-2 COVID-19 PFIZER VACCINE Unknown Completed [facility] Vital Signs Vital Name Observation Time Observation Value Comments S ource Systolic blood pressure 2024-02-18 01:57:00 134 mm[Hg] [facility] Diastolic blood pressure 2024-02-18 01:57:00 94 mm[Hg] [facility] Body height 2024-02-18 01:57:00 162.6 cm [facility] Body weight 2024-02-18 01:57:00 79.379 kg [facility] BMI 2024-02-18 01:57:00 30.04 kg/m2 [facility] Heart rate 2024-02-18 01:53:00 110 /min [facility] Body temperature 2024-02-18 01:53:[address] [facility] Respiratory rate 2024-02-18 01:53:00 24 /min [facility] Oxygen saturation in Arterial blood by Pulse oximetry 2024-02-18 01:53:00 93 /min [facility] Systolic blood pressure 2024-02-09 01:54:05 150 mm[Hg] [facility] Diastolic blood pressure 2024-02-09 01:54:05 91 mm[Hg] [facility] Heart rate 2024-02-09 01:54:05 87 /min [facility] Respiratory rate 2024-02-09 01:54:05 17 /min [facility] Oxygen saturation in Arterial blood by Pulse oximetry 2024-02-09 01:54:05 93 /min [facility] Body temperature 2024-02-09 01:45:[address] [facility] Body height 2024-02-09 01:45:00 162.6 cm [facility] Body weight 2024-02-09 01:45:00 81.194 kg [facility] BMI 2024-02-09 01:45:00 30.73 kg/m2 [facility] Respiratory rate 2024-02-08 21:00:00 18 /min [facility] Oxygen saturation in Arterial blood by Pulse oximetry 2024-02-08 21:00:00 96 /min [facility] Systolic blood pressure 2024-02-08 20:27:00 164 mm[Hg] [facility] Diastolic blood pressure 2024-02-08 20:27:00 90 mm[Hg] [facility] Heart rate 2024-02-08 20:27:00 83 /min [facility] Body temperature 2024-02-08 19:12:[address] [facility] Body height 2024-02-08 19:12:00 162.6 cm [facility] Body weight 2024-02-08 19:12:00 81.194 kg [facility] BMI 2024-02-08 19:12:00 30.73 kg/m2 [facility] Heart rate 2024-01-14 12:15:00 98 /min [facility] Body temperature 2024-01-14 12:15:[address] [facility] Respiratory rate 2024-01-14 12:15:00 14 /min [facility] Oxygen saturation in Arterial blood by Pulse oximetry 2024-01-14 12:15:00 95 /min [facility] Systolic blood pressure 2024-01-14 12:00:00 140 mm[Hg] [facility] Diastolic blood pressure 2024-01-14 12:00:00 90 mm[Hg] [facility] Body height 2024-01-14 10:51:00 162.6 cm [facility] Body weight 2024-01-14 10:51:00 81.194 kg [facility] BMI 2024-01-14 10:51:00 30.73 kg/m2 [facility] Systolic blood pressure 2023-12-23 05:02:00 133 mm[Hg] [facility] Diastolic blood pressure 2023-12-23 05:02:00 84 mm[Hg] [facility] Heart rate 2023-12-23 05:02:00 78 /min [facility] Body temperature 2023-12-23 05:02:[address] [facility] Respiratory rate 2023-12-23 05:02:00 17 /min [facility] Oxygen saturation in Arterial blood by Pulse oximetry 2023-12-23 05:02:00 91 /min [facility] Body height 2023-12-23 03:45:00 162.6 cm Univ [facility] Body weight 2023-12-23 03:45:00 81.194 kg [facility] BMI 2023-12-23 03:45:00 30.73 kg/m2 [facility] Systolic blood pressure 2023-12-22 02:08:00 143 mm[Hg] [facility] Diastolic blood pressure 2023-12-22 02:08:00 92 mm[Hg] [facility] Heart rate 2023-12-22 02:08:00 81 /min [facility] Respiratory rate 2023-12-22 02:08:00 13 /min [facility] Oxygen saturation in Arterial blood by Pulse oximetry 2023-12-22 02:08:00 95 /min [facility] Body temperature 2023-12-22 01:33:[address] [facility] Body height 2023-12-22 01:33:00 162.6 cm [facility] Body weight 2023-12-22 01:33:00 81.239 kg [facility] BMI 2023-12-22 01:33:00 30.74 kg/m2 [facility] Systolic blood pressure 2023-11-11 02:00:00 127 mm[Hg] [facility] Diastolic blood pressure 2023-11-11 02:00:00 87 mm[Hg] [facility] Heart rate 2023-11-11 02:00:00 79 /min [facility] Respiratory rate 2023-11-11 02:00:00 20 /min [facility] Oxygen saturation in Arterial blood by Pulse oximetry 2023-11-11 02:00:00 98 /min [facility] Body temperature 2023-11-11 01:31:[address] [facility] Body height 2023-11-11 01:31:00 162.6 cm [facility] Body weight 2023-11-11 01:31:00 79.379 kg [facility] BMI 2023-11-11 01:31:00 30.04 kg/m2 [facility] Systolic blood pressure 2023-10-27 06:54:00 133 mm[Hg] [facility] Diastolic blood pressure 2023-10-27 06:54:00 94 mm[Hg] [facility] Heart rate 2023-10-27 06:54:00 95 /min [facility] Body temperature 2023-10-27 06:54:[address] [facility] Respiratory rate 2023-10-27 06:54:00 22 /min [facility] Body height 2023-10-27 06:54:00 162.6 cm [facility] Body weight 2023-10-27 06:54:00 78.472 kg [facility] BMI 2023-10-27 06:54:00 29.70 kg/m2 [facility] Oxygen saturation in Arterial blood by Pulse oximetry 2023-10-27 06:54:00 94 /min [facility] Systolic blood pressure 2022-10-14 19:43:00 111 mm[Hg] [facility] Diastolic blood pressure 2022-10-14 19:43:00 74 mm[Hg] [facility] Heart rate 2022-10-14 19:43:00 98 /min [facility] Body temperature 2022-10-14 19:43:[address] [facility] Respiratory rate 2022-10-14 19:43:00 22 /min [facility] Oxygen saturation in Arterial blood by Pulse oximetry 2022-10-14 19:43:00 94 /min [facility] Body height 2022-10-14 16:13:00 162.6 cm [facility] Body weight 2022-10-14 16:13:00 81.647 kg [facility] BMI 2022-10-14 16:13:00 30.90 kg/m2 [facility] Systolic blood pressure 2022-03-12 10:13:00 119 mm[Hg] [facility] Diastolic blood pressure 2022-03-12 10:13:00 75 mm[Hg] [facility] Heart rate 2022-03-12 10:13:00 105 /min [facility] Body temperature 2022-03-12 10:13:[address] [facility] Respiratory rate 2022-03-12 10:13:00 19 /min [facility] Body height 2022-03-12 10:13:00 162.6 cm [facility] Body weight 2022-03-12 10:13:00 99.791 kg [facility] BMI 2022-03-12 10:13:00 37.76 kg/m2 [facility] Oxygen saturation in Arterial blood by Pulse oximetry 2022-03-12 10:13:00 96 /min [facility] Systolic blood pressure 2022-02-20 11:57:00 155 mm[Hg] [facility] Diastolic blood pressure 2022-02-20 11:57:00 88 mm[Hg] [facility] Heart rate 2022-02-20 11:57:00 105 /min [facility] Respiratory rate 2022-02-20 11:57:00 18 /min [facility] Oxygen saturation in Arterial blood by Pulse oximetry 2022-02-20 11:57:00 100 /min [facility] Body temperature 2022-02-20 09:25:[address] [facility] Body height 2022-02-20 09:25:00 162.6 cm [facility] Body weight 2022-02-20 09:25:00 96.163 kg [facility] BMI 2022-02-20 09:25:00 36.39 kg/m2 [facility] Procedures Procedure Date / Time Performed Performing Clinician Source AC PANEL 20 + LACTIC ACID 2024-02-08 20:47:[address] [facility] XR CHEST 1 VW 2024-02-08 19:47:00 Christina Villarreal [facility] URINALYSIS 2024-02-08 19:36:00 [facility] MAGNESIUM 2024-02-08 19:25:00 [facility] TROPONIN I 2024-02-08 19:25:00 [facility] COMP. METABOLIC PANEL ([id number]) 2024-02-08 19:25:[address] [facility] ETHANOL 2024-02-08 19:25:00 Christina Villarreal [facility] CBC WITH DIFF 2024-02-08 19:25:00 Christina Villarreal [facility] N-TERMINAL PRO-BNP 2024-02-08 19:25:[address] [facility] EKG-12 LEAD 2024-01-14 12:00:[address] [facility] LIPASE 2024-01-14 11:11:[address] [facility] TROPONIN I 2024-01-14 11:11:[address] [facility] COMP. METABOLIC PANEL ([id number]) 2024-01-14 11:11:[address] [facility] ETHANOL 2024-01-14 11:11:[address] [facility] CBC WITH DIFF 2024-01-14 11:11:00 [facility] N-TERMINAL PRO-BNP 2024-01-14 11:11:[address] [facility] COVID-19 (ID NOW RAPID TESTING) 2024-01-14 11:11:[address] [facility] CONSENT/REFUSAL FOR DIAGNOSIS AND TREATMENT 2024-01-14 10:44:32 Doctor Unassigned, Abrams [facility] LIPASE 2023-12-23 04:17:00 Tyler Rowe Un [facility] COMP. METABOLIC PANEL ([id number]) 2023-12-23 04:17:[address] [facility] CBC WITH DIFF 2023-12-23 04:17:00 [facility] 2023-12-23 04:17:00 Tyler Rowe Un [facility] CONSENT/REFUSAL FOR DIAGNOSIS AND TREATMENT 2023-12-23 03:40:32 Doctor Unassigned, Abrams [facility] CT ABDOMEN PELVIS W CONTRAST 2023-12-22 02:31:[address] [facility] LIPASE 2023-12-22 01:58:00 Melnida Maciel [facility] COMP. METABOLIC PANEL ([id number]) 2023-12-22 01:58:[address] [facility] ETHANOL 2023-12-22 01:58:00 [facility] CBC WITH DIFF 2023-12-22 01:58:00 Melinda Maciel [facility] PROTHROMBIN TIME / INR 2023-12-22 01:58:00 Wali Maciel [facility] URINALYSIS 2023-12-22 01:58:00 [facility] CONSENT/REFUSAL FOR DIAGNOSIS AND TREATMENT 2023-12-22 01:19:14 Doctor Unassigned, Abrams [facility] NOTICE OF PRIVACY PRACTICES 2023-11-11 01:24:24 Doctor Unassigned, Abrams [facility] CONSENT/REFUSAL FOR DIAGNOSIS AND TREATMENT 2023-11-11 01:23:54 Doctor Unassigned, Abrams [facility] COVID-19 (ID NOW RAPID TESTING) 2023-10-27 07:09:[address] [facility] NOTICE OF PRIVACY PRACTICES 2023-10-27 06:49:48 Doctor Unassigned, Abrams [facility] CONSENT/REFUSAL FOR DIAGNOSIS AND TREATMENT 2023-10-27 06:47:40 Doctor Unassigned, Abrams [facility] CT ABDOMEN PELVIS W CONTRAST 2022-10-14 17:33:00 Singer [facility] XR CHEST 1 VW 2022-10-14 17:10:37 Singer [facility] TROPONIN I 2022-10-14 16:37:00 Melinda Maciel [facility] COMP. METABOLIC PANEL ([id number]) 2022-10-14 16:37[facility] 2022-10-14 16:37:00 Melinda Maciel [facility] PROTHROMBIN TIME / INR 2022-10-14 16:37:00 Wali Maciel [facility] URINALYSIS 2022-10-14 16:37:00 [facility] N-TERMINAL PRO-BNP 2022-10-14 16:37:00 Maciel, Melinda [facility] CONSENT/REFUSAL FOR DIAGNOSIS AND TREATMENT 2022-10-14 15:56:36 Doctor Unassigned, Abrams [facility] CONSENT/REFUSAL FOR DIAGNOSIS AND TREATMENT 2022-03-12 10:03:12 Doctor Unassigned, Abrams [facility] XR CHEST 1 VW 2022-02-20 09:59:00 Christy Holliday [facility] LIPASE 2022-02-20 09:30:00 Christy Holliday [facility] TROPONIN I 2022-02-20 09:30:00 Christy Holliday [facility] COMP. METABOLIC PANEL ([id number]) 2022-02-20 09:30:[address] [facility] CBC WITH DIFF 2022-02-20 09:30:00 Christy Holliday [facility] N-TERMINAL PRO-BNP 2022-02-20 09:30:[address] [facility] NOTICE OF PRIVACY PRACTICES 2022-02-20 09:15:02 Doctor Unassigned, Abrams [facility] CONSENT/REFUSAL FOR DIAGNOSIS AND TREATMENT 2022-02-20 09:14:47 Doctor Unassigned, Abrams [facility] Encounters Start Date/Time End Date/Time Encounter Type Admission Type Attending [facility] Care Department Encounter ID Source 2024-04-14 16:30:00 2024-04-14 16:30:00 Outpatient DARIEN LOBO [id number] Maria Elena [facility] 2024-04-12 11:00:00 2024-04-12 11:00:00 Outpatient MINNA ORTA [id number] Maria Elena [facility] 2024-04-12 11:00:00 2024-04-12 11:00:00 Outpatient WENDY BROWNLEE [id number] Maria Elena [facility] 2024-04-12 00:00:00 2024-04-12 00:00:00 [facility] [id number] [facility] 11:30:2024-04-05 11:30:00 Outpatient DARIEN LOBO [id number] Maria Elena [facility] 2024-04-05 00:00:00 2024-04-05 00:00:00 Outpatient DARIEN LOBO [id number] Maria Elena [facility] 2024-03-28 00:00:00 2024-03-28 00:00:00 Outpatient DARIEN LOBO [id number] [facility] 2024-03-15 08:30:00 2024-03-15 08:30:00 Outpatient WENDY BROWNLEE [id number] [facility] 2024-02-17 20:58:00 2024-02-17 21:44:00 Emergency X PEG CAMP [facility] ERT [id number] [facility] 2024-02-17 20:58:00 2024-02-17 21:44:00 Emergency Peg Camp [facility] 1.2840.114 350.1.13.10 4.2.7.2.686 [id number] [facility] 2024-02-09 13:10:00 2024-02-09 15:14:00 Emergency URSULA SANTOS [facility] [id number] [address] [place] [address] 2024-02-08 20:38:00 2024-02-08 21:40:00 Emergency X KEISHA DAVENPORT [facility] ERT [id number] [facility] 2024-02-08 20:38:00 2024-02-08 21:40:00 Emergency AufdsusanKeisha briones [facility] 1.2840.114 350.1.13.10 4.2.7.2.686 [id number] [facility] 2024-02-08 14:08:00 2024-02-08 17:06:00 Emergency Christina Villarreal [facility] 1.2.840.114 350.1.13.10 4.2.7.2.686 [id number] [id number] [facility] 2024-01-14 04:46:00 2024-01-14 06:23:00 Emergency X JAC NAVARRO [facility] ERT [id number] [facility] 2024-01-14 04:46:00 2024-01-14 06:23:00 Emergency Jac Navarro [facility] 1.2.840.114 350.1.13.10 4.2.7.2.686 [id number] [facility] 2023-12-22 21:51:00 2023-12-22 23:13:00 Emergency X TREV ROWERADHA [facility] ERT [id number] [facility] 2023-12-22 21:51:00 2023-12-22 23:13:00 Emergency Tyler Rowe [facility] 1.2.840.114 350.1.13.10 4.2.7.2.686 [id number] [facility] 2023-12-21 19:36:00 2023-12-21 21:52:00 Emergency X MELINDA MACIEL [facility] ERT [id number] [facility] 2023-12-21 19:36:00 2023-12-21 21:52:00 Emergency Melinda Maciel [facility] 1.2.840.114 350.1.13.10 4.2.7.2.686 [id number] [facility] 2023-11-10 19:29:00 2023-11-10 20:14:00 Emergency X CHRISTY HOLLIDAY [facility] ERT [id number] [facility] 2023-11-10 19:29:00 2023-11-10 20:14:00 Emergency Christy Holliday [facility] 1.2.840.114 350.1.13.10 4.2.7.2.686 [id number] [facility] 2023-10-27 00:49:00 2023-10-27 01:41:00 Emergency X JAC NAVARRO [facility] ERT [id number] [facility] 2023-10-27 00:49:00 2023-10-27 01:41:00 Emergency Jac Navarro [facility] 1..840.114 350.1.13.10 4.2.7.2.686 [id number] [facility] 2023-07-15 00:00:00 2023-07-15 00:00:00 Outpatient DARIEN LOBO [id number] Maria Elena [facility] 2023-06-16 11:30:00 2023-06-16 11:30:00 Outpatient DARIEN LOBO [id number] [facility] 2023-05-18 00:00:00 2023-05-18 00:00:00 Outpatient GROUPMARIA ELENA [id number] [facility] 2022-10-14 10:07:00 2022-10-14 14:39:00 Emergency X MELINDA MACIEL [facility] ERT [id number] [facility] 2022-10-14 10:07:00 2022-10-14 14:39:00 Emergency MacielMelinda [facility] 1..840.114 350.1.13.10 4.2.7.2.686 [id number] [facility] 2022-03-12 05:15:00 2022-03-12 06:41:00 Emergency X CHRISTY HOLLIDAY [facility] ERT [id number] [facility] 2022-03-12 05:15:00 2022-03-12 06:41:00 Emergency Christy Holliday [facility] 1..840.114 350.1.13.10 4.2.7.2.686 [id number] [facility] 2022-02-20 04:17:00 2022-02-20 07:16:00 Emergency X CHRISTY HOLLIDAY [facility] ERT [id number] [facility] 2022-02-20 04:17:00 2022-02-20 07:16:00 Emergency Christy Holliday [facility] 1.2.840.114 350.1.13.10 4.2.7.2.686 [id number] [facility] 2021-02-03 11:10:00 2021-02-03 11:10:00 Outpatient R DENISE SUNG [facility] [id number] [facility] 2021-01-13 11:20:00 2021-01-13 11:20:00 Outpatient [facility] [id number] [facility] 2020-11-10 08:20:00 2020-11-10 08:20:00 Outpatient KARLEY ESTRADA [facility] [id number] [facility] Results Test Description Test Time Test Comments Results Result Co mments Source [facility] + Lactic [id number] 20:52:47* Test Item Value Reference Range Interpretation Comme nts PH (test code = 2) 7.39 7.35-7.45 PCO2 (test code = 3495417486) 42 35-45 PO2 (test code = 6609372197) 76 80-100 L HCO3 (test code = 5320874105) 25 22-26 BE (test code = 0454968585) -0.1 -3.0-3.0 THB (test code = 9794513078) 14.3 g/dL 13.5-18.0 %O2HB (test code = 3234641192) 85.8 % 94.0-99.0 L %COHB ART (test code = 5429150474) 9.0 % 0.0-1.5 H %METHB ART (test code = 9291057464) 0.3 % 0.4-1.5 L VOL%O2 ART (test code = 1116330403) 17.3 % 15.0-23.0 NA (test code = 2815506969) 140 mmol/L 135-145 K+ (test code = 3515957073) 4.1 mmol/L 3.5-5.0 AC CA IONZ (test code = 8026887730) 4.50 mg/dL 4.50-5.30 GLUCOSE (test code = 6844426894) 105 mg/dL 70-110 LACTIC ACID (test code = 2841012231) 2.60 mmol/L 0.50-2.20 H Lab Interpretation (test cod e = 22425-5) Abnormal [facility] [id number] 20:34:14* Test Item Value Reference Range Interpretation Comme nts TROPONIN I (test code = 2950174738) 0.008 ng/mL <=0.034 LOUISE (test code = [...] of biotin. Lab Interpretation (test code = 55429-1) Normal [facility] Sup-[id number] 20:31:35* Test Item Value Reference Range Interpretation Comme nts NT-proBNP (test code = 69282-9) 188 pg/mL <=125 LOUISE (test code = LOUISE) Result Indeterminate-Consid er causes of NT-proBNP elevation other than Heart failure such as acute coronary syndrome, pulmonary embolism, pulmonary hypertension, sepsis, stroke, and renal dysfunction. Lab Interpretation (test code = 39750-7) Abnormal [facility] Met[facility] Panel (46344)2024-02-08 20:21:10* Test Item Value Reference Range Interpretation Comme nts NA (test code = 7074501093) 135 mmol/L 135-145 K (test code = 6204071972) 4.5 mmol/L 3.5-5.0 CL (test code = 7947202619) 100 mmol/L 98-108 CO2 TOTAL (test code = 3822925046) 22 mmol/L 23-31 L AGAP (test code = 1369748970) 13 2-16 BUN (test code = 3596067480) 8 mg/dL 7-23 GLUCOSE (test code = 7898118955) 97 mg/dL 70-110 CREATININE (test code = 2160-0) 0.65 mg/dL 0.60-1.25 TOTAL BILI (test code = 7327337009) 0.4 mg/dL 0.1-1.1 CALCIUM (test code = 5673012656) 9.4 mg/dL 8.6-10.6 T PROTEIN (test code = 4800603383) 8.2 g/dL 6.3-8.2 ALBUMIN (test code = 4684278024) 4.7 g/dL 3.5-5.0 ALK PHOS (test code = 4193796693) 76 U/L 34-122 ALTv (test code = 1742-6) 33 U/L 5-50 AST(SGOT) (test code = 2246418735) 54 U/L 13-40 H eGFR (test code = 39961-2) 111.3 mL/min/1.73m2 CKD-EPI eGFR (2020). Assuming creatinine has been stable day-to-day for at least three months, the eGFR indicates Category G1 (>= 90 mL/min/1.73 m2) Lab Interpretation (test code = 25781-5) Abnormal [facility]esium2024-04-01 20:21:10* Test Item Value Reference Range Interpretation Comme nts MAGNESIUM (test code = 9003971352) 2.1 mg/dL 1.7-2.4 Lab Interpretation (test cod e = 26226-4) Normal [facility] 1 [id number] 20:07:21EXAM: XR CHEST 1 VW COMPARISON: 01/14/2024 HISTORY: sob FINDINGS: Lungs: Slightly hyperexpanded lungswith subtle progression of interstitialprominence. Trace pleural effusions could be present. Heart/Mediastinum: Stable cardiomegaly. Bones and soft tissues: No osseous abnormality is visualized.[facility] Cbc with [id number] 20:04:26* Test Item Value Reference Range Interpretation [...] 33.8 g/dL 31.2-35.0 RDW-SD (test code = 83669-0) 50.5 fL 38.5-51.6 RDW-CV (test code = 788-0) 14.3 % 12.1-15.4 PLT (test code = 777-3) 206 150-328 MPV (test code = 04535-0) 9.1 fL 9.8-13.0 L NRBC/100 WBC (test code = 2227278576) 0.0 0.0-10.0 NRBC x10^3 (test code = 5479618992) See_Comment [Automated messa ge] The system which generated this result transmitted reference range: 10*3/?L. The reference range was not used to interpret this result as normal/abnormal. GRAN MAT (NEUT) % (test code = 770-8) 81.0 % IMM GRAN % (test code = 9789659503) 1.20 % LYMPH % (test code = 736-9) 10.9 % MONO % (test code = 5905-5) 6.8 % EOS % (test code = 713-8) 0.0 % BASO % (test code = 706-2) 0.1 % GRAN MAT x10^3(ANC) (test code = 3111383212) 9.31 10*3/uL 1.99-6.95 H IMM GRAN x10^3 (test code = 9758091204) 0.14 10*3/uL 0.00-0.06 H LYMPH x10^3 (test code = 731-0) 1.25 10*3/uL 1.09-3.23 MONO x10^3 (test code = 742-7) 0.78 10*3/uL 0.36-1.02 EOS x10^3 (test code = 711-2) 0.06-0.53 L BASO x10^3 (test code = 704-7) 0.01-0.09 Lab Interpretation (test code = 73431-7) Abnormal [facility] MET[facility]OLIC PANEL (54477)2023-12-23 04:53:26* Test Item Value Reference Range Interpretation Comme nts NA (test code = 5838487241) 135 mmol/L 135-145 K (test code = 3846995343) 3.2 mmol/L 3.5-5.0 L CL (test code = 1907314841) 104 mmol/L 98-108 CO2 TOTAL (test code = 4135779972) 23 mmol/L 23-31 AGAP (test code = 7265237901) 8 2-16 BUN (test code = 0045935842) 11 mg/dL 7-23 GLUCOSE (test code = 6496520432) 82 mg/dL 70-110 CREATININE (test code = 2160-0) 0.64 mg/dL 0.60-1.25 TOTAL BILI (test code = 8998651251) 0.5 mg/dL 0.1-1.1 CALCIUM (test code = 0111523941) 8.8 mg/dL 8.6-10.6 T PROTEIN (test code = 5371947693) 6.7 g/dL 6.3-8.2 ALBUMIN (test code = 9213213735) 4.1 g/dL 3.5-5.0 ALK PHOS (test code = 3069511203) 46 U/L 34-122 ALTv (test code = 1742-6) 21 U/L 5-50 AST(SGOT) (test code = 7276776345) 43 U/L 13-40 H eGFR (test code = 08430-0) 111.8 mL/min/1.73m2 CKD-EPI eGFR (2021). Assuming creatinine has been stable day-to-day for at least three months, the eGFR indicates Category G1 (>= 90 mL/min/1.73 m2) Lab Interpretation (test code = 60598-3) [facility]normal [facility]2024-[facility]14 04:53:26* Test Item Value Reference Range Interpretation Comme nts LIPASE (test code = 4829835129) 105 U/L 0-220 Lab Interpretation (test cod e = 29914-6) Normal [facility] WITH [id number] 04:34:24* Test Item Value Reference Range Interpretation [...] 33.0 g/dL 31.2-35.0 RDW-SD (test code = 46159-2) 50.9 fL 38.5-51.6 RDW-CV (test code = 788-0) 13.7 % 12.1-15.4 PLT (test code = 777-3) 232 150-328 MPV (test code = 71382-4) 8.7 fL 9.8-13.0 L NRBC/100 WBC (test code = 7778003561) 0.0 0.0-10.0 NRBC x10^3 (test code = 2185607432) See_Comment [Automated messa ge] The system which generated this result transmitted reference range: 10*3/?L. The reference range was not used to interpret this result as normal/abnormal. GRAN MAT (NEUT) % (test code = 770-8) 58.8 % IMM GRAN % (test code = 5373260169) 0.90 % LYMPH % (test code = 736-9) 27.8 % MONO % (test code = 5905-5) 10.5 % EOS % (test code = 713-8) 1.3 % BASO % (test code = 706-2) 0.7 % GRAN MAT x10^3(ANC) (test code = 1373568943) 5.68 10*3/uL 1.99-6.95 IMM GRAN x10^3 (test code = 0688870794) 0.09 10*3/uL 0.00-0.06 H LYMPH x10^3 (test code = 731-0) 2.69 10*3/uL 1.09-3.23 MONO x10^3 (test code = 742-7) 1.02 10*3/uL 0.36-1.02 EOS x10^3 (test code = 711-2) 0.13 10*3/uL 0.06-0.53 BASO x10^3 (test code = 704-7) 0.07 10*3/uL 0.01-0.09 Lab Interpretation (test code = 31043-2) [facility]normal [facility] [id number] 03:32:43Exam: CT Abdomen and Pelvis With Contrast, [...] acute osseous abnormality.Soft tissues: Small fat-containing inguinal hernias.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 [facility] (59493)2023-12-22 02:31:43* Test Item Value Reference Range Interpretation Comme nts NA (test code = 0139080141) 133 mmol/L 135-145 L K (test code = 8395350016) 3.3 mmol/L 3.5-5.0 L CL (test code = 8050698166) 102 mmol/L 98-108 CO2 TOTAL (test code = 3475649615) 25 mmol/L 23-31 AGAP (test code = 3184866371) 6 2-16 BUN (test code = 7290763839) 11 mg/dL 7-23 GLUCOSE (test code = 6296665354) 75 mg/dL 70-110 CREATININE (test code = 0390528377) 0.51 mg/dL 0.60-1.25 L TOTAL BILI (test code = 0618792382) 0.5 mg/dL 0.1-1.1 CALCIUM (test code = 1676983909) 8.9 mg/dL 8.6-10.6 T PROTEIN (test code = 7764432238) 7.2 g/dL 6.3-8.2 ALBUMIN (test code = 8495535497) 4.5 g/dL 3.5-5.0 ALK PHOS (test code = 2325588689) 46 U/L 34-122 ALTv (test code = 1742-6) 15 U/L 5-50 AST(SGOT) (test code = 9565247023) 24 U/L 13-40 eGFR (test code = 88718-5) 119.7 mL/min/1.73m2 CKD-EPI eGFR (2020). Assuming creatinine has been stable day-to-day for at least three months, the eGFR indicates Category G1 (>= 90 mL/min/1.73 m2) Lab Interpretation (test code = 37554-6) [facility]normal [facility] 02:31:43* Test Item Value Reference Range Interpretation Comme nts LIPASE (test code = 1291232340) 121 U/L 0-220 Lab Interpretation (test cod e = 19581-0) Normal [facility] HospitalProthrombin Time / DSD8368-79-33 02:21:02* Test Item Value Reference Range Interpretation Comme nts PROTIME PATIENT (test code = 5964-2) 10.5 10.1-12.6 INR (test code = 6301-6) 0.9 Normal INR <1.1; Warfarin Therapeutic range 2.0 to 3.0 or 2.5 to 3.5, depending upon the indications. Lab Interpretation (test code = 83820-7) Normal [facility] HospitalCb with Bcvv9219-76-08 02:14:04* Test Item Value Reference Range Interpretation [...] 34.0 g/dL 31.2-35.0 RDW-SD (test code = 73506-9) 49.1 fL 38.5-51.6 RDW-CV (test code = 788-0) 13.5 % 12.1-15.4 PLT (test code = 777-3) 260 150-328 MPV (test code = 13295-7) 8.7 fL 9.8-13.0 L NRBC/100 WBC (test code = 6641148975) 0.0 0.0-10.0 NRBC x10^3 (test code = 6662605596) See_Comment [Automated messa ge] The system which generated this result transmitted reference range: 10*3/?L. The reference range was not used to interpret this result as normal/abnormal. GRAN MAT (NEUT) % (test code = 770-8) 64.3 % IMM GRAN % (test code = 0516192350) 0.90 % LYMPH % (test code = 736-9) 24.2 % MONO % (test code = 5905-5) 9.1 % EOS % (test code = 713-8) 0.7 % BASO % (test code = 706-2) 0.8 % GRAN MAT x10^3(ANC) (test code = 6740132941) 8.73 10*3/uL 1.99-6.95 H IMM GRAN x10^3 (test code = 6197051556) 0.12 10*3/uL 0.00-0.06 H LYMPH x10^3 (test code = 731-0) 3.28 10*3/uL 1.09-3.23 H MONO x10^3 (test code = 742-7) 1.23 10*3/uL 0.36-1.02 H EOS x10^3 (test code = 711-2) 0.10 10*3/uL 0.06-0.53 BASO x10^3 (test code = 704-7) 0.11 10*3/uL 0.01-0.09 H Lab Interpretation (test code = 41387-1) [facility]91 10:16:22* Test Item Value Reference Range Interpretation Comments TROPONIN I (test code = 4747735808) 0.007 ng/mL See_Comment [Automated message] The system [...] of biotin. Lab Interpretation (test code = 94968-5) Normal [facility] HospitalN-TERMINAL HEY-YIQ4245-60-14 10:13:01* Test Item Value Reference Range Interpretation Comme nts NT-proBNP (test code = 5084867375) 52 pg/mL See_Comment [Automated message] The system which generated this result transmitted reference range: <=125. The reference range was not used to interpret this result as normal/abnormal. LOUISE (test code = LOUISE) Biotin has been reported to cause a negative bias, interpret results relative to patient's use of biotin. Lab Interpretation (test code = 65152-3) Normal [facility] HospitalCOMP. METABOLIC PANEL (68591)2022-02-20 10:04:02* Test Item Value Reference Range Interpretation Comme nts NA (test code = 0859960044) 137 mmol/L 135-145 K (test code = 0108682834) 3.6 mmol/L 3.5-5.0 CL (test code = 2308150856) 99 mmol/L 98-108 CO2 TOTAL (test code = 9539689740) 25 mmol/L 23-31 AGAP (test code = 8882654204) 2-16 BUN (test code = 6882022162) 6 mg/dL 7-23 L GLUCOSE (test code = 9985484622) 88 mg/dL 70-110 CREATININE (test code = 9181140487) 0.55 mg/dL 0.60-1.25 L TOTAL BILI (test code = 7510012756) 0.8 mg/dL 0.1-1.1 CALCIUM (test code = 4297293024) 8.9 mg/dL 8.6-10.6 T PROTEIN (test code = 2431325775) 7.5 g/dL 6.3-8.2 ALBUMIN (test code = 2791035952) 4.8 g/dL 3.5-5.0 ALK PHOS (test code = 4177901758) 113 U/L 34-122 ALTv (test code = 1742-6) 84 U/L 5-50 H AST(SGOT) (test code = 1093984067) 107 U/L 13-40 H eGFR (test code = 8378982804) mL/min/1.73m2 LOUISE (test code = LOUISE) Association [...] imaging tests). Lab Interpretation (test code = 60310-0) [facility]normal [facility] HospitalLIPASE, FKITW8295-35-15 10:03:21* Test Item Value Reference Range Interpretation Comme nts LIPASE (test code = 8506791450) 193 U/L 0-220 Lab Interpretation (test cod e = 09415-1) Normal [facility] HospitalCB WITH CUYV3700-79-80 09:39:17* Test Item Value Reference Range Interpretation Comme nts WBC (test code = 6690-2) See_Comment [Automated Dinner Lab] The system which generated this result transmitted [...] g/dL 31.2-35.0 H RDW-SD (test code = 91689-8) 44.4 fL 38.5-51.6 RDW-CV (test code = 788-0) 11.9 % 12.1-15.4 L PLT (test code = 777-3) See_Comment [Automated messa ge] The system which generated this result transmitted reference range: 150 - 328 10*3/?L. The reference range was not used to interpret this result as normal/abnormal. MPV (test code = 73611-5) 9.2 fL 9.8-13.0 L NRBC/100 WBC (test code = 8998382375) See_Comment [Automated OffersBy.Me ssage] The system which generated this result transmitted reference range: 0.0 - 10.0 /100 WBCs. The reference range was not used to interpret this result as normal/abnormal. NRBC x10^3 (test code = 2189625853) <0.01 See_Comment [Automated messa ge] The system which generated this result transmitted reference range: 10*3/?L. The reference range was not used to interpret this result as normal/abnormal. GRAN MAT (NEUT) % (test code = 770-8) 69.9 % IMM GRAN % (test code = 4074721714) 1.50 % LYMPH % (test code = 736-9) 18.9 % MONO % (test code = 5905-5) 7.0 % EOS % (test code = 713-8) 1.9 % BASO % (test code = 706-2) 0.8 % GRAN MAT x10^3(ANC) (test code = 5959289587) 7.15 10*3/uL 1.99-6.95 H IMM GRAN x10^3 (test code = 3663136871) 0.15 10*3/uL 0.00-0.06 H LYMPH x10^3 (test code = 731-0) 1.93 10*3/uL 1.09-3.23 MONO x10^3 (test code = 742-7) 0.72 10*3/uL 0.36-1.02 EOS x10^3 (test code = 711-2) 0.19 10*3/uL 0.06-0.53 BASO x10^3 (test code = 704-7) 0.08 10*3/uL 0.01-0.09 Lab Interpretation (test code = 64477-0) Abnormal [facility] Notes Date/Time Note Provider Source 2024-02-17 21:43:52 3464-86-81P96:43:52F ormatting of this note might be different from the original.No answer in lobby. 76098-0Epbvqndix department ZvwfZV4955-77-99E71:44:07[facility] department NoteTXT1.2.840.622436.1.13.104.2.7 .2.183103|6971446895KWSpcvlgvtp for patient rxpg47601-3MikoOKHBYJGWOEBKgjsvwwe d C-CDA narrative cynh148905064Hyoflv J Hoot RNUT[address] KtnhUecshgihwXfnaohlesFFSM93218796 92IHEWJOAPENPWTNZORSOTIR2793-00-30 T21:44:071.2.840.346118.1.72.3.15| 1.2.840.355139.1.13.104.2.7.2.7278 79_[id number] Angy Turner RN [facility] 2024-02-17 21:42:10 1120-82-66J95:42:10F ormatting of this note might be different from the original.Pt's blood pressure cuff and pulse ox found lying on chair. Called for patient in lobby 2 times, no answer. No one in lobby. 67856-4Hxcfezhga department TvgwRY4575-60-09O32:44:10[facility] NoteTXT1.2.840.485235.1.13.104.2.7 .2.533082|4957021400DVNqtibzyfu for patient lwcc75203-5FhjoKRBVEJUHTBJSpamonus d C-CDA narrative detv172565158Itync A. Campbell [address]TXTX[address] 39OOXBWXNZJSTVFFUVKWVQBN3957-46-80 T21:44:101.2.840.614182.1.72.3.15| 1.2.840.853064.1.13.104.2.7.2.7278 79_[id number] Sierra Samaniego RN [facility] 2024-02-17 21:41:09 1566-99-09X12:41:09F ormatting of this note might be different from the original.Pt not in lobby or in room. No answer in lobby. [address]172-7Zbczulnpn[address] BlusEE3731-42-58J64:41:40[facility] NoteTXT1.2.840.071812.1.13.104.2.7 .2.575097|9494331213EYAegrtkqop for patient qtea67808-5GouwVSFEZFKJCXCUbuuahct d C-CDA narrative text[address]TXTX[address]75 72LEDPQFZPYULPOVPIVISCUY5013-67-17 T21:41:401.2.840.698477.1.72.3.15| 1.2.840.622724.1.13.104.2.7.2.7278 79_[id number] [facility] 2024-02-17 21:14:29 2577-89-33H82:14:29F ormatting of this note might be different from the original.Pt not in FT01-01 and no answer in lobby. 38046-2Vrowesoou department GcagWJ5211-49-07E74:15:32[facility] NoteTXT1.2.840.210316.1.13.104.2.7 .2.003647|8290591081UXAgfffhvzt for patient wzay35872-0PxyiCZAKCDKSMKWGafmzmdu d C-CDA narrative text[address]vdGalvestonGalvestonTXTX[address] 10DLGSZAYZQBTBMPODSVYDCE3857-09-76 T21:15:321.2.840.464514.1.72.3.15| 1.2.840.409928.1.13.104.2.7.2.7278 79_[id number] [facility] 2024-02-17 20:48:50 6116-37-23F22:48:50F ormatting of this note might be different from the original.Pt arrives ambulatory to ED c/o SOB, right upper abdominal pain, and left leg and hip pain. Pt states that he has been on prednisone for about 5 yrs which had given him osteoporosis which is causing his leg pain. Reports hx of COPD, o2 is generally @ 91 he says. 34221-5Ephwtpahi department Triage yrtqNN9281-05-45K22:53:54[facility] Triage noteTXT1.2.840.583063.1.13.104.2.7 .2.367226|5020225713JNSynsmjpqg for patient hlot69072-1Wzjostugh department NoteLNNARRATIVEFormatted C-CDA narrative gpef864988430Jgbpzl L Dl RN[address]TXTX[address] 15IKQJEIQYRODXBORVTWHSCK4243-34-79 T20:53:541.2.840.339825.1.72.3.15| 1.2.840.945386.1.13.104.2.7.2.7278 79_[id number] Leah Quarles Dl MACHUCA [facility] 2024-02-08 21:37:56 9434-32-19V78:37:56F ormatting of this note might be different from the original.Pt left AMA 28188-6Repfgzxra[address] SccvKL9810-38-29X08:38:11[facility] department NoteTXT1.2.840.448899.1.13.104.2.7 .2.589669|9389313325DWIrdpbqgoo for patient fsxv52419-8TnxeMXYXYRXUSWXDawnqjmh d C-CDA narrative aogf875313449Olmyw M Martinez RN[address]TXTX[address] 47FNSHMIJKPXNSSGNLTMISYM1687-01-99 T21:38:111.2.840.750883.1.72.3.15| 1.2.840.244296.1.13.104.2.7.2.7278 79_[id number] Kylie Foster RN [facility] 2024-02-08 21:32:00 9002-50-33I79:32:00F ormatting of this note might be different [...] ambulatory with steady gait, [place] NAD 71164-4Xjekutixk department VfofIU0740-81-22C33:40:32[facility] NoteTXT1.2.840.119509.1.13.104.2.7 .2.475826|7925972805TXWomwankys for patient zbvf69360-0BkpaKSJPAIUVEGUMzwmhbvz d C-CDA narrative [employer]TXTX[address] 85SLSJWQTUKMXTBQHUWZSUJZ0250-88-30 T21:40:321.2.840.636578.1.72.3.15| 1.2.840.645138.1.13.104.2.7.2.7278 79_[id number] [facility] 2024-02-08 20:54:38 8434-29-34C34:54:38F ormatting of this note might be different from the original.Pt states he uses O2 at home, portable O2 is broken 48715-1Yuoxjdimz[address] HtrhJP5108-45-00H03:55:13[facility] NoteTXT1.2.840.272025.1.13.104.2.7 .2.739321|0376414397ZLNaxivvcoa for patient yoal83328-2GcigVDIPJCZTQXGLjrurcsi d C-CDA narrative [employer]TXTX[address] 87PTCXPRBZLXESQFMNQPLYCA4471-22-98 T20:55:131.2.840.211100.1.72.3.15| 1.2.840.609884.1.13.104.2.7.2.7278 79_[id number] [facility] 2024-02-08 20:51:11 6555-30-95I57:51:11F ormatting of this note might be different from the original.Pt ambulates with cane 26992-4Vhdjtxpgh department KpljCD5474-62-91T76:51:26[facility] NoteTXT1.2.840.814449.1.13.104.2.7 .2.491036|1863707806XFPgjvvzvis for patient utvk16145-8ArduMHTIXOYSRQTVdtxabcj d C-CDA narrative text[address] ZkecRmuqqnofdYpyspszywOCIB07848850 30UGTTUXEGDLCVYCVENRNUYE6228-55-07 T20:51:261.2.840.845429.1.72.3.15| 1.2.840.906599.1.13.104.2.7.2.7278 79_[id number] [facility] 2024-02-08 20:43:13 6243-90-62A28:43:13F ormatting of this note might be different from the original.CC: Pt arrives SOB after leaving [place] earlier in the shift. He reports he [...] 3 BC powders and drank 3 beers." 56347-4Cidgzpjrm department Triage ctkuNW5678-81-72M95:48:36[facility] Triage noteTXT1.2.840.526291.1.13.104.2.7 .2.435312|5946807346UQKezwslgho for patient wqri40650-7Vhmhdorjj department NoteLNNARRATIVEFormatted C-CDA narrative xups678091057Wftozv Sarika King RN[address]TXTX[address] 96AHURPHLYPNIGBLTHDJNUZH8162-18-53 T20:48:361.2.840.016559.1.72.3.15| 1.2.840.065770.1.13.104.2.7.2.7278 79_[id number] Leah Sarika King RN [facility] 2024-02-08 17:04:05 6013-23-93J89:04:05F ormatting of this note might be different [...] of the department with a steady gait. 56271-0Uozfjaitx department JyaiYG1396-80-17U05:05:22[facility] department NoteTXT1.2.840.160093.1.13.104.2.7 .2.552677|0748541803WQFkaxurffs for patient gmga06534-4CtwlLWXXLLIHIYEGeaurocy d C-CDA narrative pnyh304687882Ibwn M Hayes RN[address]TXTX[address] 37PLLZCYVFHCPIYJTWMIEEVD4407-76-69 T17:05:221.2.840.572450.1.72.3.15| 1.2.840.765712.1.13.104.2.7.2.7278 79_[id number] Allison Zhang RN [facility] 2024-02-08 14:23:02 5700-94-90E01:23:02F ormatting of this note might be different from the original.Pt ambulates with a cane 41480-4Zhrjumqyi department ZkbjFF7754-21-41G31:23:12[facility] NoteTXT1.2.840.532379.1.13.104.2.7 .2.158847|1593666828KTHjoqdrhcm for patient apgj98321-3FuqrJLRYDKKZCXXRqimiykv d C-CDA narrative zvjj344843798GcuirKylie Foster RN[address] MvqqNrwmnuocoEcgfxvwttFKHW62355520 71PYREGHZQAAMIHUKREJZSWQ2258-78-66 T14:23:121.2.840.154082.1.72.3.15| 1.2.840.656831.1.13.104.2.7.2.7278 79_[id number] Kylie Foster RN [facility] 2024-02-08 14:13:15 7671-94-99W33:13:15F ormatting of this note might be different [...] only thing that helps." Face is flushed. 00447-4Dtvoukkmb department Triage tyorFJ5928-82-58V48:17:26[facility] Triage noteTXT1.2.840.734698.1.13.104.2.7 .2.919892|4790657996XKSglamieox for patient vftx81688-1Yujbjmyqc department NoteLNNARRATIVEFormatted C-CDA narrative wenc719776224Iryovnx Traci MACH[address]CAUT[address]TXTX[address] 41LXDZEHJLKQVLDYZUFFTPJA9555-59-86 T14:17:261.2.840.729635.1.72.3.15| 1.2.840.689835.1.13.104.2.7.2.7278 79_[id number] Hali Aviles RN [facility] 2024-01-14 06:16:25 3274-28-78G25:16:25F ormatting of this note might be different [...] w/d, pt leaving in no apparent distress, 86429-6Enrfdezbz department CtkkAY7092-78-77S02:17:20[facility] NoteTXT1.2.840.426690.1.13.104.2.7 .2.468996|[id number] for patient bhbt77731-1PrrbQZKTDBJLMMRIyafmpex d C-CDA narrative text[address]TXTX[address] 71DDDLCAYDJBQFKQEOVHRUZU0657-15-38 T06:17:201.2.840.329509.1.72.3.15| 1.2.840.822123.1.13.104.2.7.2.7278 79_[id number] [facility] 2024-01-14 04:49:43 2021-37-93O38:49:43F ormatting of this note might be different [...] ext without difficulty, amb with steady gait 81369-9Aoghokgso department Triage fmeeII1836-82-28L48:55:49[facility] Triage noteTXT1.2.840.882377.1.13.104.2.7 .2.578605|9819751816NWTxuifygbg for patient kxkj64040-2Cyvdpowpx department NoteLNNARRATIVEFormatted C-CDA narrative ydec011585222Ypijuc R Shehadeh RNUT[address] StreetDknrWmjgmcbfbXqvhsicljQHNF64761125 28HQCRTETTGGPQDRNCXERWUW8042-55-67 T04:55:491.2.840.237537.1.72.3.15| 1.2.840.983468.1.13.104.2.7.2.7278 79_[id number] Leah King RN [facility] 2024-01-14 04:43:00 4526-84-79B35:43:00A ssociated Order(s): EKG-12 Lead ROUTINE ONCEPre-Procedure Diagnose(s): Chest pain, unspecified typePost-Procedure Diagnose(s): Chest pain, unspecified type [facility] Emergency Department NotePatient Name: Randy BrionesDanilda of : 1970 53 year old maleTreatment Room: TX1/SV7Mvealnk Record Number: [id number] Care Physician: Adrianna King Escorted by: Family [5]Mode of Arrival: Personal means [1]EMS Treatment Prior to ED Arrival:VIBRATION ANALYST treatment: NTGPTA treatment comments: 0.4 mg SL taken VIBRATION ANALYST, no releifTravel and Exposure Screening:SymptomsDoes patient have [...] 0451 81.2 kg (179 lb)Actual or estimated 01/14/24 0451 Estimated by patient/family reportHeight 01/14/24450 1.626 m [...] Resident: Max Nur Results:Lab ResultsCOMP. METABOLIC PANEL (50021) - AbnormalResult Value Ref RangeNA 138 135 [...] 49 (*) 13 - 40 U/LeGFR 93.3 mL/min/1.95y5RMP WITH DIFF - AbnormalWBC 11.59 (*) 4.20 [...] 220 U/LCOVID-19 (ID NOW RAPID TESTING) - UgwuslAMYT-RbT-8 Rapid ID NOW Not Detected Not DetectedETHANOLALCOHOL 62 mg/dLEKG:If EKG completed, see Procedure Note.Orders and Treatments:Orders Placed This EncounterProcedures XR CHEST 1 VW TROPONIN I COMP. METABOLIC PANEL (68112) LIPASE, SERUM CBC WITH DIFF N-Terminal Pro-Bnp Ethanol COVID-19 (ID NOW TESTING) Lab Only COVID Interpretation O2 Per ProtocolOrders Placed This EncounterMedications morpHINE (4 mg/mL) injection 4 mg ondansetron (ZOFRAN (PF)) injection 4 mg ipratropium-albuteroL (DUONEB) 0.5 mg-3 mg(2.5 mg base)/3 mL nebulizer solution 3 mLFirst Provider Eval:ED EventsDate/Time Event User Lyvyjgbe05/07/24 0510 Medical Screening Begins JAC NAVARRO MD --01/14/24 0510 First Provider Evaluation JAC NAVARRO MD --ED COURSEDiagnosis/Impression as of 01/14/24 0605Chest pain, unspecified typeBronchitisProcedures:EKG-12 Lead ROUTINE ONCEDate/Time: 01/14/2024 5:24 AMPerformed by: Jac Navarro MDAuthorized by: Jac Navarro MDECYovani interpreted by ED Physician in the absence of a epic trainer: yesPrevious ECG:Previous ECG: Compared to currentSimilarity: No [...] on fileFollow-up:Electronically signed by:Jac Navarro MD01/14/24 0600 61733-9Jkhwoynlm Emergency department KsqcCP5941-69-10B76:00:50Physician Emergency department NoteTXT1.2.840.756706.1.13.104.2.7 .2.234975|9545570766PCYmynpvkxm for patient rkdy57794-0Wvvsxbxmw department NoteLNNARRATIVEFormatted C-CDA narrative textUT37 Dixon StreetTuadUyzecoplpRpstpxskaIVZI27874720 68WWXIBCDFDREWNIYNOETIKE6691-55-47 T06:00:501.2.840.273883.1.72.3.15| 1.2.840.777790.1.13.104.2.7.2.7278 79_[id number] [facility] 2023-12-22 23:12:16 4693-34-52J53:12:16F ormatting of this note might be different [...] with steady gait, in no apparent distress, 03562-2Ivihctkgg department MgxaDF7115-57-82W69:13:50[facility] NoteTXT1.2.840.672088.1.13.104.2.7 .2.586011|9208776684ZFFimtlujoe for patient iasv30921-2MsxoTLPJLYSBALHIkzowvnd d C-CDA narrative hbhw355577745Ojifp E Gillispie RN[address]TXTX[address] 77GNWIEOAVVXSBYQVYJVCVKJ2096-60-68 T23:13:501.2.840.897638.1.72.3.15| 1.2.840.997408.1.13.104.2.7.2.7278 79_[id number] Mary Magaña RN [facility] 2023-12-22 21:41:55 2532-44-93O99:41:55F ormatting of this note might be different from the original.Pt arrives ambulatory to ED reporting bleeding with stools and 10/10 abdominal pain. States he was here last night but had to leave before receiving results d/t having to work. Says the pain became worse so he came back in. 90430-7Ydjhvzqio department Triage lghaWW0563-36-91X17:48:52[facility] Triage noteTXT1.2.840.052277.1.13.104.2.7 .2.563351|6934861027WKFifyzbbxr for patient cmkw19232-0Rjjbwssrr department NoteLNNARRATIVEFormatted C-CDA narrative otke053119085Kojepn L Williams RN[address]TXTX[address] 10YSVATTIFYLMOIELEDVOHKZ2360-61-57 T21:48:521.2.840.363824.1.72.3.15| 1.2.840.013363.1.13.104.2.7.2.7278 79_[id number] Leah Lizama RN [facility] 2023-12-21 21:31:00 5882-34-51R18:31:00F ormatting of this note might be different [...] with steady gait, appears in no distress. 64971-1Tttgocora department NfocIP3364-22-27B34:38:39[facility] NoteTXT1.2.840.148136.1.13.104.2.7 .2.215538|2357144490EARqzffeeog for patient awcx99318-7PfduMTYKWTOXKQCHzxnxiwx d C-CDA narrative loid180902397KdozqMary Magaña RN[address]vdGalvestonGalvestonTXTX[address] 40IREXMSWAPVGINQNZJSBBKL6011-25-52 T21:38:391.2.840.238084.1.72.3.15| 1.2.840.752590.1.13.104.2.7.2.7278 [id number] Mary Magaña RN [facility] 2023-12-21 21:30:00 9303-23-73E50:30:00F ormatting of this note might be different from the original.Pt wished to leave AMA. Pt states " yall were wonderful but 3am come real early." 16004-1Dgletemmk department DuleVB9156-19-79Z42:36:58[facility] NoteTXT1.2.840.153239.1.13.104.2.7 .2.137661|[id number] for patient mozs20407-3QunyWGYGCXDTMRYIgxupfvh d C-CDA narrative text[id number] 83UVAKIEIXHBHCCLHTQUBAPK1401-25-46 T21:36:581.2.840.686395.1.72.3.15| 1.2.840.679553.1.13.104.2.7.2.7278 [id number] [facility] 2023-12-21 21:26:22 7599-26-13B60:26:22F ormatting of this note might be different from the original.Pt asking to go outside and smoke, wants to go home and eat. Pt educated on risks of leaving AMA. Provider informed pt is in pain. [address] IastZZ5832-13-22K39:33:35[facility] NoteTXT1.2.840.445058.1.13.104.2.7 .2.807774|[id number] for patient jyoq87144-4WiahZYRDCLRQXVANdpamnrf d C-CDA narrative [id number] [address]FORD[id number] 59CGBHSWGZCKFXDATHWECPUR4800-05-04 T21:33:351.2.840.168049.1.72.3.15| 1.2.840.434201.1.13.104.2.7.2.7278 [id number] Leah King RN [facility] 2023-12-21 19:31:50 6879-54-39H74:31:50F ormatting of this note might be different from the original.Pt arrived ambulatory with complaints of bright red rectal bleeding and generalized abdominal pain this afternoon. Pt states his stool was normal consistency but continuous bright red blood. Denies this happening before.Pt is an alcoholic, had 2 beer [employer]. States he vomits all the time but not something new today. 08524-8Jzxmnjgul department Triage uhrcSP3907-77-70H90:33:28[facility] department Triage noteTXT1.2.840.939454.1.13.104.2.7 .2.791084|[id number] for patient thqa60085-3Ueejvvfkg[address] [place] [address] NoteLNNARRATIVEFormatted C-CDA narrative [id number] D Roman RN[id number] 56GIKBTDHVQGZQONZWPBMQCT9097-74-13 T19:33:281.2.840.271964.1.72.3.15| 1.2.840.697474.1.13.104.2.7.2.7278 [id number] Gabi Esqueda RN [facility] 2023-11-10 20:13:39 3619-00-50Y07:13:39F ormatting of this note might be different from the original.Pt requesting to leave AMA. ERP notified. Pt counseled to remain, risks of leaving AMA including discussed with pt. Pt continued to decline further ER evaluation at this time. AMA papers signed, witnessed, and placed on patient's chart. Pt left ambulatory. VS stable, no ataxia noted, GCS 15, A&Ox4. 00301-9Iyvfdjpvz department TamzIJ8391-53-89U52:13:52[facility] department NoteTXT1.2.840.664961.1.13.104.2.7 .2.723005|[id number] for patient mrfd35211-5EemvTGKUNMPAWYSRttwyjaf d C-CDA narrative [id number] Medrano RNUT[id number] 17FQHDLFAWBUKRKHYXUEVCGW0459-87-40 T20:13:521.2.840.094203.1.72.3.15| 1.2.840.113936.1.13.104.2.7.2.7278 79_[id number] Briseida Medrano RN [facility] 2023-11-10 19:30:29 7196-17-24E10:30:29F ormatting of this note might be different from the original.Patient arrived to ED c/o SOB and COPD exacerbation. Symptoms started this morning. Patient wears 3L NC at home. Patient is a smoker. Patient states having the chills, diarrhea, and vomiting. States having sharp pains in chest from coughing. 45151-1Nqfuwjvct department Triage elskDS5662-38-43X85:35:27[facility] Triage noteTXT1.2.840.349650.1.13.104.2.7 .[id number] for patient [id number] department NoteLNNARRATIVEFormatted C-CDA narrative [id number]-Rpova McInnis RNUT23 George [id number] Sreedhar Gomez RN [facility]
[2024-04-20] MEDS ORDERED: LORazepam 2 MG/ML VIAL ONE (04:39)
[2024-04-20] MEDS ORDERED: WATER FOR INJ,STERILE 10 ML ONE (04:39)
[2024-04-20] MEDS ORDERED: ZIPRASIDONE MESYLA 20 MG/VIAL IM ONE (04:39)
[2024-04-20] MEDS ORDERED: METHYLPREDNISOLONE 40 MG INJ ONE (04:39)
[2024-04-20] MEDS ORDERED: Levofloxacin 750mg IV 750 MG/150 ML BAG IV ONE (04:40)
[2024-04-20] MEDS ORDERED: NA CHLORIDE 0.9% 2,000 ML ONE (04:40)
[2024-04-20] MEDS ORDERED: ALBUTEROL 2.5 MG/3 ML NEB SOL ONE (04:53)
[2024-04-20 05:04] LABS: Absolute Lymphocytes (CBC) 0.4 K/uL (0.7-4.9); Absolute Neutrophil 4.8 K/uL (1.8-8.0); Basophils % 0.6 % (0-1.3); Eosinophils % 0.1 % (0-4.4); Hematocrit 38.5 % (39.6-49.0); Hemoglobin 13.2 g/dL (13.6-17.9); Lymphocytes % 7.1 % (15.3-44.8); MCH 33.6 pg (27.0-35.0); MCHC 34.3 g/dL (32.0-36.0); MCV 98.1 fL (80-100); MPV 6.7 fL (7.6-11.3); Monocytes % 0.9 % (3.3-12.3); Neutrophils % 91.3 % (41.7-73.7); Nucleated Red Blood Cells % 0.2 % (0-0); Platelets 320 thou/uL (152-406); RBC Red Blood Cell Count 3.92 M/uL (4.33-5.43); Red Cell Distribution Width 16.6 % (12.1-15.2)
[2024-04-20 05:07] LABS: PT Prothrombin Time 10.2 SECONDS (9.5-12.5); PTT, Activated Partial Thromb 32.9 SECONDS (24.3-36.9); Protime INR 0.93
[2024-04-20 05:26] LABS: ALT/SGPT 23 U/L (16-61); AST/SGOT 13 U/L (15-37); Alkaline Phosphatase 70 U/L (45-117); BUN Blood Urea Nitrogen 8 mg/dL (7-18); Bicarbonate 23 mEq/L (21-32); Glomerular Filtration Rate 111 ml/min (=/>90); Glucose Level 173 mg/dL (74-106); Sodium Level 132 mEq/L (136-145)
[2024-04-20 05:27] LABS: Albumin 3.6 g/dL (3.4-5.0); Albumin/Globulin Ratio 0.8 (1.1-1.8); Bilirubin Direct < 0.1 mg/dL (0-0.2); Bilirubin Indirect, Calculated ND mg/dL (0.2-0.8); Bilirubin Total 0.2 mg/dL (0.2-1.0); Creatine Phosphokinase 28 U/L (39-308); Globulin 4.5 g/dL (2.3-3.5); Lipase 55 U/L (13-75); Magnesium 2.4; NT PRO-BNP 66 pg/mL (<125); Protein, Total 8.1 g/dL (6.4-8.2)
[2024-04-20 05:59] LABS: Band Neutrophils 2 % (0-1); Blood Morphology Comment NOT SEEN (NOT SEEN); Differential Total Cells Count 100; Lymphocytes 6 % (15-42); Metamyelocytes 1 % (0-0); Monocytes 1 % (0-10); Platelet Estimate ADEQ; Segmented Neutrophils 90 % (40-80)
--- NOTE | 2024-04-20 06:28 | ER ---
Nurse's Notes [facility] Name: Randy Briones Age: 53 yrs Sex: Male : 1970 Arrival Date: 04/20/2024 Time: 04:10 Bed 6 Private MD: Diagnosis: COPD/ Chronic obstructive pulmonary disease with (acute) exacerbation;Alcohol intoxication, chronic alcoholism, COPD with oxygen dependence, dyspnea and wheezing Presentation: 04/20 04:19 Chief complaint: Patient states: i have chest pain and shortness of breath for 4 weeks. bm8 EMS states: pt was just discharged/ ama from here a few hours ago. 04:20 Coronavirus screen: At this time, the client does not indicate any symptoms associated bm8 with coronavirus-19. Ebola Screen: Patient negative for fever greater than or equal to 101.5 degrees Fahrenheit, and additional compatible Ebola Virus Disease symptoms Patient denies exposure to infectious person. Patient denies travel to an Ebola-affected area in the 21 days before illness onset. No symptoms or risks identified at this time. Initial Sepsis Screen: Does the patient meet any 2 criteria? No. Patient's initial sepsis screen is negative. Does the patient have a suspected source of infection? No. Patient's initial sepsis screen is negative. Risk Assessment: Do you want to hurt yourself or someone else? Patient reports no desire to harm self or others. Onset of symptoms was March 20, 2024. 04:20 Method Of Arrival: EMS: [facility] bm8 04:20 Acuity: CANDACE 3 bm8 Triage Assessment: 04:21 General: Appears distressed, uncomfortable, unkempt, Behavior is cooperative, bm8 appropriate for age, anxious. Pain: Complains of pain in left lateral anterior chest and left breast Pain does not radiate. Pain currently is 10 out of 10 on a pain scale. Quality of pain is described as aching, crampy. EENT: No deficits noted. Neuro: No deficits noted. Level of Consciousness is awake, alert, obeys commands, Oriented to person, place, time, situation, Appropriate for age. Cardiovascular: Reports chest pain, shortness of breath, Heart tones S1 S2 present Capillary refill < 3 seconds Patient's skin is warm and dry. Cardiovascular: Rhythm is sinus tachycardia. Respiratory: Reports shortness of breath labored breathing Airway is patent Trachea midline Respiratory effort is even, labored, Respiratory pattern is regular, symmetrical, Breath sounds with rales in right upper lobe and right middle lobe Breath sounds with rhonchi in left upper lobe, left lower lobe and right lower lobe the patient has moderate shortness of breath. GI: No deficits noted. No signs and/or symptoms were reported involving the gastrointestinal system. : No deficits noted. No signs and/or symptoms were reported regarding the genitourinary system. Derm: No deficits noted. No signs and/or symptoms reported regarding the dermatologic system. Musculoskeletal: No deficits noted. No signs and/or symptoms reported regarding the musculoskeletal system. Historical: - Allergies: 04:21 Lisinopril; bm8 - Home Meds: 04:21 Unable to obtain [Active]; bm8 - PMHx: 04:21 Alcoholism; COPD; Hepatitis B (Hypertension); home 02 3LNC PRN; Hypertension; bm8 Osteoporosis; - PSHx: 04:21 Amputation of left index finger; bm8 - Immunization history:: Adult Immunizations unknown. - Infectious Disease History:: Denies. - Social history:: Smoking status: Patient reports the use of cigarette tobacco products, smokes one pack cigarettes per day. Patient uses alcohol, patient/guardian reports recent binge of alcohol consumption. Patient/guardian denies using street drugs. - Family history:: not pertinent. Screenin:26 [facility] ED Fall Risk Assessment (Adult) History of falling in the last 3 months, bm8 including since admission No falls in past 3 months (0 pts) Confusion or Disorientation No (0 pts) Intoxicated or Sedated No (0 pts) Impaired Gait No (0 pts) Mobility Assist Device Used No (0 pt) Altered Elimination No (0 pt) Score/Fall Risk Level 0 - 2 = Low Risk Oriented to surroundings, Maintained a safe environment, Educated pt \T\ family on fall prevention, incl call for assistance when getting out of bed, Assessed \T\ reinforced patient's understanding of fall precautions. Abuse screen: Denies threats or abuse. Nutritional screening: No deficits noted. Tuberculosis screening: No symptoms or risk factors identified. Assessment: 04:26 Reassessment: see triage note. bm8 06:12 Reassessment: Patient appears in no apparent distress at this time. Patient and/or bm8 family updated on plan of care and expected duration. Pain level reassessed. Patient is alert, oriented x 3, equal unlabored respirations, skin warm/dry/pink. General: Appears in no apparent distress. comfortable, Behavior is calm, cooperative. Pain: Complains of pain in chest Pain does not radiate. Neuro: No deficits noted. Level of Consciousness is awake, alert, obeys commands, Oriented to person, place, time, situation. Cardiovascular: Heart tones S1 S2 present Capillary refill < 3 seconds Patient's skin is warm and dry. Respiratory: Airway is patent Trachea midline Respiratory effort is even, unlabored, Respiratory pattern is regular, symmetrical, Breath sounds with crackles in right upper lobe Breath sounds with rhonchi in left upper lobe, left lower lobe and right lower lobe. 06:48 Reassessment: Patient appears in no apparent distress at this time. Patient and/or bm8 family updated on plan of care and expected duration. Pain level reassessed. Patient is alert, oriented x 3, equal unlabored respirations, skin warm/dry/pink. pt is resting with eyes closed breathing is even unlabored on 2L NC. currently denies pain. Awaiting room assignment. Patient denies pain at this time. Patient states symptoms have improved. Vital Signs: 04:20 BP 148 / 92; Pulse 104; Resp 15; Temp 97.7; Pulse Ox 97% on 2 lpm NC; Weight 73.94 kg; bm8 Height 5 ft. 4 in. ; Pain 10/10; 06:12 BP 129 / 66; Pulse 128; Resp 25; Temp 97.9; Pulse Ox 94% on 2 lpm NC; Pain 5/10; bm8 06:48 BP 131 / 84; Pulse 106; Resp 18; Temp 97.9; Pulse Ox 94% on 2 lpm NC; Pain 0/10; bm8 04:20 Body Mass Index 27.98 (73.94 kg, 162.56 cm) bm8 04:20 Pain Scale: Adult bm8 06:12 Pain Scale: Adult bm8 06:48 Pain Scale: Adult bm8 [place] Coma Score: 04:26 Eye Response: spontaneous(4). Motor Response: obeys commands(6). Verbal Response: bm8 oriented(5). Total: 15. 06:12 Eye Response: spontaneous(4). Motor Response: obeys commands(6). Verbal Response: bm8 oriented(5). Total: 15. 06:19 Eye Response: spontaneous(4). Motor Response: obeys commands(6). Verbal Response: sp4 oriented(5). Total: 15. ED Course: 04:17 Patient arrived in ED. vk 04:19 Paul Monteiro RN is Primary Nurse. bm8 04:21 Triage completed. bm8 04:21 Jose Crews MD is Attending Physician. sp4 04:21 Arm band placed on right wrist. bm8 04:26 Patient has correct armband on for positive identification. Bed in low position. Call bm8 light in reach. Side rails up X2. Client placed on continuous cardiac and pulse oximetry monitoring. NIBP monitoring applied. monitoring and evaluation advisor on. Pulse ox on. NIBP on. Door closed. Noise minimized. Visitors limited. Warm blanket given. Verbal reassurance given. Head of bed elevated. 04:26 No provider procedures requiring assistance completed. Inserted saline lock: 20 gauge bm8 in left forearm, using aseptic technique. Blood collected. Oxygen administration via nasal cannula \T\ 2L/min Response to oxygen therapy: symptoms improved. 05:28 XRAY CXR (1 view) In Process Unspecified. EDMS 06:12 Provided Education on: need for admission. Assisted with urinal. bm8 06:12 Patient admitted, IV remains in place. bm8 06:26 Satnam Martin MD is Hospitalizing Provider. sp4 07:00 Report given to David Barlow. bm8 Administered Medications: 04:55 Drug: Albuterol Inhalation 2.5 mg Inhalation every 20 minutes x3 Route: Inhalation; bm8 04:55 Drug: LevaQUIN IVPB 750 mg IVPB once Route: IVPB; Site: left forearm; bm8 06:37 Follow up: Response: No adverse reaction; IV Status: Completed infusion; IV Intake: bm8 150ml 04:56 Drug: Ativan IVP 1 mg IVP once Route: IVP; Site: left forearm; bm8 06:38 Follow up: Response: No adverse reaction bm8 04:56 Drug: Geodon IM 20 mg IM once Route: IM; Site: right deltoid; bm8 06:38 Follow up: Response: No adverse reaction bm8 04:56 Drug: MethylPrednisoLONE IVP 60 mg IVP once Route: IVP; Site: left forearm; bm8 06:38 Follow up: Response: No adverse reaction bm8 04:57 Drug: NS 0.9% IV 1000 ml IV at 125 ml/hr continuous Route: IV; Rate: 125 ml/hr; Site: bm8 left forearm; 06:39 Follow up: Response: No adverse reaction; IV Status: Infusion continued bm8 04:57 Drug: NS 0.9% IV 1000 ml IV at 1 bolus Per protocol; 1000 mL bolus Route: IV; Rate: 1 bm8 bolus; Site: left forearm; 06:37 Follow up: Response: No adverse reaction; IV Status: Completed infusion; IV Intake: bm8 1000ml 05:16 Drug: Albuterol Inhalation 2.5 mg Inhalation every 20 minutes x3 Route: Inhalation; bm8 06:38 Drug: Albuterol Inhalation 2.5 mg Inhalation every 20 minutes x3 Route: Inhalation; bm8 06:38 Follow up: Response: No adverse reaction bm8 Medication: 04:26 VIS not applicable for this client. bm8 Intake: 06:37 IV: 1000ml; Total: 1000ml. bm8 06:37 IV: 150ml; Total: 1150ml. bm8 Outcome: 06:27 Decision to Hospitalize by Provider. sp4 07:39 Condition: stable ko1 07:39 Instructed on the need for admit, 07:54 Admitted to Med/surg accompanied by tech, via wheelchair, room 213, with chart, ko1 07:55 Patient left the ED. ko1 Signatures: Dispatcher [employer] Yen Lara RN RN ko1 Jose Crews MD MD sp4 Kathi Jaquez Brad RN RN bm8 Corrections: (The following items were deleted from the chart) 07:54 07:39 Admitted to Med/surg accompanied by tech, via stretcher, with chart, ko1 ko1
--- NOTE | 2024-04-20 06:28 | EDPHYS ---
Physician Documentation [facility] Name: Randy Briones Age: 53 yrs Sex: Male : 1970 Arrival Date: 04/20/2024 Time: 04:10 Bed 6 Private MD: ED Physician Jose Crews HPI: 04/20 04:22 This 53 yrs old Male presents to ER via EMS with complaints of dyspnea . sp4 06:19 53-year-old male well-known to me from prior visits with history of alcoholism COPD sp4 hepatitis B on home O2 hypertension presents with EMS for worsening dyspnea and wheezing. Patient visibly intoxicated. Patient was here yesterday evening and was treated for basically COPD worsening. X-ray revealed signs of multifocal pneumonia. Patient was advised to stay in hospital however he decided to leave the emergency room. Patient returns now with worsening dyspnea and feeling unwell.. Historical: - Allergies: 04:21 Lisinopril; bm8 - Home Meds: 04:21 Unable to obtain [Active]; bm8 - PMHx: 04:21 Alcoholism; COPD; Hepatitis B (Hypertension); home 02 3LNC PRN; Hypertension; bm8 Osteoporosis; - PSHx: 04:21 Amputation of left index finger; bm8 - Immunization history:: Adult Immunizations unknown. - Infectious Disease History:: Denies. - Social history:: Smoking status: Patient reports the use of cigarette tobacco products, smokes one pack cigarettes per day. Patient uses alcohol, patient/guardian reports recent binge of alcohol consumption. Patient/guardian denies using street drugs. - Family history:: not pertinent. ROS: 06:19 Constitutional: Negative for fever, chills, and weight loss, positive dyspnea, positive sp4 generalized weakness, positive for alcohol intoxication 06:19 All other systems are negative, Exam: 06:19 Constitutional: This is a well developed, well nourished patient who is awake, alert, sp4 visibly intoxicated male and in acute moderate distress, dyspnea and tachypnea and audible wheezing. Head/Face: Normocephalic, atraumatic. Positive for facial plethora associated with intoxication. Eyes: Pupils equal round and reactive to light, extra-ocular motions intact. Lids and lashes normal. Conjunctiva and sclera are not injected. Cornea within normal limits. Periorbital areas with no swelling, redness, or edema. ENT: Nares patent. No nasal discharge, no septal abnormalities noted. Tympanic membranes are normal and external auditory canals are clear. Oropharynx with no redness, swelling, or masses, exudates, or evidence of obstruction, uvula midline. Mucous membranes moist. Neck: Trachea midline, no thyromegaly or masses palpated, and no cervical lymphadenopathy. Supple, full range of motion without nuchal rigidity, or vertebral point tenderness. Chest/axilla: Normal chest wall appearance and motion. Nontender with no deformity. No lesions are appreciated. Cardiovascular: Moderate tachycardia regular tachycardia. No gallops, murmurs, or rubs. Normal PMI, no JVD. No pulse deficits. Respiratory: Lungs have equal breath sounds bilaterally, clear to auscultation and percussion. No rales, rhonchi or wheezes noted. No increased work of breathing, no retractions or nasal flaring. Abdomen/GI: Soft, with normal bowel sounds. No distension or tympany. No guarding or rebound. No evidence of tenderness throughout. Back: No spinal tenderness. No costovertebral tenderness. Skin: Warm, dry with normal turgor. Normal color with no rashes, no lesions, and no evidence of cellulitis. MS/ Extremity: Pulses equal, no cyanosis. Neurovascular intact. Full, normal range of motion. Neuro: Awake and alert, GCS 15, oriented to person, place, time, and situation. Cranial nerves II-XII grossly intact. Motor strength 5/5 in all extremities. Sensory grossly intact. Psych: Awake, alert, with orientation to person, place and time. Positive for intoxication and emotional upset 06:19 ECG was reviewed by the Attending Physician. EKG at 0 416 reveals sinus tachycardia at the rate of 105 otherwise normal. Vital Signs: 04:20 BP 148 / 92; Pulse 104; Resp 15; Temp 97.7; Pulse Ox 97% on 2 lpm NC; Weight 73.94 kg; bm8 Height 5 ft. 4 in. ; Pain 10/10; 06:12 BP 129 / 66; Pulse 128; Resp 25; Temp 97.9; Pulse Ox 94% on 2 lpm NC; Pain 5/10; bm8 06:48 BP 131 / 84; Pulse 106; Resp 18; Temp 97.9; Pulse Ox 94% on 2 lpm NC; Pain 0/10; bm8 04:20 Body Mass Index 27.98 (73.94 kg, 162.56 cm) bm8 04:20 Pain Scale: Adult bm8 06:12 Pain Scale: Adult bm8 06:48 Pain Scale: Adult bm8 [place] Coma Score: 04:26 Eye Response: spontaneous(4). Motor Response: obeys commands(6). Verbal Response: bm8 oriented(5). Total: 15. 06:12 Eye Response: spontaneous(4). Motor Response: obeys commands(6). Verbal Response: bm8 oriented(5). Total: 15. 06:19 Eye Response: spontaneous(4). Motor Response: obeys commands(6). Verbal Response: sp4 oriented(5). Total: 15. MDM: 05:57 ED course: EXAMINATION: XR CHEST 1 VIEW INDICATION: Male, 53 years old, CHEST PAIN sp4 TECHNIQUE: 1 view COMPARISON(S): Most recent available exam dated 04/03/2024 FINDINGS: SUPPORT DEVICES: Overlying leads. LUNGS/PLEURA: Basilar linear opacities likely represent scarring/atelectasis. No consolidation, pleural effusion or pneumothorax. HEART/MEDIASTINUM: Unchanged with size within normal limits for technique. OTHER: No acute osseous findings. IMPRESSION: No acute cardiopulmonary findings. . 06:19 Differential Diagnosis altered mental status, sepsis, flu, COPD exacerbation, pneumonia sp4 . Data reviewed: vital signs, nurses notes, EMS record, old medical records, lab test result(s), EKG, radiologic studies, plain films. Consideration of Admission/Observation Escalation of care including admission/observation considered. ED course: This time patient returns with EMS with worsening dyspnea. Patient was administered her Geodon for emotional upset and mild anxiety. Patient warrants admission for COPD management inpatient.. 06:27 Patient medically screened. sp4 04/20 04:22 Order name: Alcohol Level; Complete Time: 05:39 sp4 04/20 04:23 Order name: BMP; Complete Time: 05:39 sp4 04/20 04:23 Order name: Blood Culture Adult (2) sp4 04/20 04:23 Order name: CBC with Diff; Complete Time: 06:19 sp4 04/20 04:23 Order name: CPK; Complete Time: 05:39 sp4 04/20 04:23 Order name: Hepatic Function; Complete Time: 05:39 sp4 04/20 04:23 Order name: Lipase; Complete Time: 05:39 sp4 04/20 04:23 Order name: Magnesium; Complete Time: 05:39 sp4 04/20 04:23 Order name: NT PRO-BNP; Complete Time: 05:39 sp4 04/20 04:23 Order name: PT-INR; Complete Time: 05:39 4 04/20 04:23 Order name: Ptt, Activated; Complete Time: 05:39 sp4 04/20 04:23 Order name: Troponin HS; Complete Time: 05:39 sp4 04/20 05:18 Order name: Manual Differential; Complete Time: 06:19 EDMS 06 04:23 Order name: XRAY CXR (1 view) 04/20 04:23 Order name: EKG; Complete Time: 04:24 sp4 04/20 04:23 Order name: Cardiac monitoring; Complete Time: 04:28 4 04/20 04:23 Order name: EKG - Nurse/Tech; Complete Time: 04:28 4 04/20 04:23 Order name: IV Saline Lock; Complete Time: 04:28 sp4 04/20 04:23 Order name: Labs collected and sent; Complete Time: 04:28 4 04/20 04:23 Order name: O2 Per Protocol; Complete Time: 04:28 4 04/20 04:23 Order name: O2 Sat Monitoring; Complete Time: 04:28 sp4 EC:19 Rate is 105 beats/min. Rhythm is regular, Sinus tachycardia. QRS [place] is Normal. DE sp4 interval is normal. QRS interval is normal. QT interval is normal. No Q waves. T waves are Normal. No ST changes noted. Clinical impression: Normal ECG. Interpreted by me. Reviewed by me. Administered Medications: 04:55 Drug: Albuterol Inhalation 2.5 mg Inhalation every 20 minutes x3 Route: Inhalation; bm8 04:55 Drug: LevaQUIN IVPB 750 mg IVPB once Route: IVPB; Site: left forearm; bm8 06:37 Follow up: Response: No adverse reaction; IV Status: Completed infusion; IV Intake: bm8 150ml 04:56 Drug: Ativan IVP 1 mg IVP once Route: IVP; Site: left forearm; bm8 06:38 Follow up: Response: No adverse reaction bm8 04:56 Drug: Geodon IM 20 mg IM once Route: IM; Site: right deltoid; bm8 06:38 Follow up: Response: No adverse reaction bm8 04:56 Drug: MethylPrednisoLONE IVP 60 mg IVP once Route: IVP; Site: left forearm; bm8 06:38 Follow up: Response: No adverse reaction bm8 04:57 Drug: NS 0.9% IV 1000 ml IV at 125 ml/hr continuous Route: IV; Rate: 125 ml/hr; Site: bm8 left forearm; 06:39 Follow up: Response: No adverse reaction; IV Status: Infusion continued bm8 04:57 Drug: NS 0.9% IV 1000 ml IV at 1 bolus Per protocol; 1000 mL bolus Route: IV; Rate: 1 bm8 bolus; Site: left forearm; 06:37 Follow up: Response: No adverse reaction; IV Status: Completed infusion; IV Intake: bm8 1000ml 05:16 Drug: Albuterol Inhalation 2.5 mg Inhalation every 20 minutes x3 Route: Inhalation; bm8 06:38 Drug: Albuterol Inhalation 2.5 mg Inhalation every 20 minutes x3 Route: Inhalation; bm8 06:38 Follow up: Response: No adverse reaction bm8 Disposition Summary: 04/20/24 06:27 Hospitalization Ordered Notes: Hospitalization Status: Inpatient Admission sp4 Provider: Satnam Martin [facility] sp4 Condition: Serious sp4 Problem: new sp4 Symptoms: have improved sp4 Bed/Room Type: Standard sp4 Room Assignment: 213(04/20/24 07:01) bd Diagnosis - COPD/ Chronic obstructive pulmonary disease with (acute) exacerbation sp4 - Alcohol intoxication, chronic alcoholism, COPD with oxygen dependence, dyspnea and sp4 wheezing Forms: - Medication Reconciliation Form sp4 - SBAR form sp4 - Leadership Thank You Letter sp4 Signatures: Dispatcher [employer] Leticia Celestin Sergey, MD MD sp4 Paul Monteiro RN RN bm8 Corrections: (The following items were deleted from the chart) 04:24 04:23 BASIC METABOLIC PANEL+C.LAB.BRZ ordered. EDMS EDMS 04:24 04:23 BLOOD CULTURE*+BA.LAB.BRZ ordered. EDMS EDMS 04:24 04:23 CBC+H.LAB.BRZ ordered. EDMS EDMS 04:24 04:23 CREATINE PHOSPHOKINASE+C.LAB.BRZ ordered. EDMS EDMS 04:24 04:23 HEPATIC FUNCTION+C.LAB.BRZ ordered. EDMS EDMS 04:24 04:23 LIPASE+C.LAB.BRZ ordered. EDMS EDMS 04:24 04:23 MAGNESIUM+C.LAB.BRZ ordered. EDMS EDMS 04:24 04:23 PROBNP+C.LAB.BRZ ordered. EDMS EDMS 04:24 04:23 PROTIME (+INR)+COAG.LAB.BRZ ordered. EDMS EDMS 04:24 04:23 PTT, ACTIVATED+COAG.LAB.BRZ ordered. EDMS EDMS 04:24 04:23 Troponin High Sensitivity+C.LAB.BRZ ordered. EDMS EDMS 07:01 06:27 sp4 bd
[2024-04-20] MEDS ORDERED: ACETAMINOPHEN 500 MG TAB PO PRN (08:18)
[2024-04-20] MEDS ORDERED: FLUMAZENIL 0.1 MG/ML (5 mL VIAL) IV PRN (08:18)
[2024-04-20] MEDS ORDERED: ALBUTEROL 2.5 MG/3 ML NEB SOL NEB PRN (08:18)
[2024-04-20] MEDS ORDERED: LORazepam 2 MG/ML VIAL IV PRN (08:18)
[2024-04-20] MEDS: IPRATROPIUM BROM 0.5MG/2.5ML NEB SCH (08:30)
[2024-04-20 08:46] VITALS: BMI 27.9
[2024-04-20] MEDS ORDERED: PIPER TAZO 3.375 GM in NA CHLORIDE 0.9% 100 ML IV SCH (09:00)
[2024-04-20] MEDS: HYDROCODONE/APAP 5/325 MG TAB PO PRN (09:37)
[2024-04-20] MEDS: FOLIC ACID 1 MG TABLET PO SCH (09:38)
[2024-04-20] MEDS: chlordiazePOXIDE HCl 25 MG CAP PO SCH ×3 (09:38→19:53)
[2024-04-20] MEDS: THIAMINE HCL 100 MG TABLET PO SCH (09:38)
[2024-04-20] MEDS: METHYLPREDNISOLONE 125 MG INJ IV ONE (09:38)
[2024-04-20] MEDS: NA CHLORIDE 0.9% 1,000 ML IV SCH (09:39)
[2024-04-20] MEDS: chlordiazePOXIDE HCl 25 MG CAP PO ONE (10:45)
[2024-04-20] MEDS: METHYLPREDNISOLONE 125 MG INJ IV SCH ×2 (11:45→19:53)
--- NOTE | 2024-04-20 13:52 | RAD REPORT ---
EXAM DESCRIPTION: XR CHEST 1 VIEW CLINICAL HISTORY: Male, 53 years old, CHEST PAIN TECHNIQUE: 1 view COMPARISON: Most recent available exam dated 04/03/2024 FINDINGS: SUPPORT DEVICES: Overlying leads. LUNGS/PLEURA: Basilar linear opacities likely represent scarring/atelectasis. No consolidation, pleur al effusion or pneumothorax. HEART/MEDIASTINUM: Unchanged with size within normal limits for technique. OTHER: No acute osseous findings. IMPRESSION: No acute cardiopulmonary findings. Electronically signed by: Sriram Galaviz MD 04/20/2024 05:38 AM CDT RP Due to temporary technical issues with the PACS/Fluency reporting system, reports are being signed by the in house radiologist without review as a courtesy to ensure prompt reporting. The interpreting r adiologist is fully responsible for the content of the report.
[2024-04-20 14:06] LABS: Specific Gravity 1.013 (1.005-1.030); Sqamous Epithelial None Seen /HPF (None Seen); Urine Bacteria None Seen /HPF (<20); Urine Bilirubin NEGATIVE (Negative); Urine Blood Negative (Negative); Urine Clarity Clear (Clear); Urine Color Light-Yellow (Yellow); Urine Culture Reflex Order NOT NEEDED; Urine Glucose TRACE (Negative); Urine Ketones NEGATIVE (Negative); Urine Microscopic Reflex YN ORDER UMIC; Urine Nitrite NEGATIVE (Negative); Urine Protein NEGATIVE (Negative); Urine RBC <5 /HPF (None Seen); Urine Urobilinogen Normal (Normal); Urine WBC <5 /HPF (<5); Urine pH 5.5 (5.0-7.0)
--- NOTE | 2024-04-20 16:03 | P.HP ---
Certification for Inpatient Patient admitted to: Observation With expected LOS: <2 Midnights Practitioner: I am a practitioner with admitting privileges, knowledge of patient current condition, hospital course, and medical plan of care. Services: Services provided to patient in accordance with Admission requirements found in Title 42 Section 412.3 of the Code of Federal Regulations Patient History Date of Service: 04/20/24 History of Present Illness: 53 yrs old Male with past medical history of alcohol use, COPD, hepatitis B, hypertension, chronic hypoxic respiratory failure on 3 L nasal cannula as needed, and history of alcoholism brought to ER with shortness of breath. He reports and has been progressively worsening and was brought to ER. Patient also has subjective fever but no chills. Associated with cough with mucoid expectoration. Denies any nausea vomiting or diarrhea. Reported alcohol use, alcohol level 232. Patient was recently being discharged from the hospital where he admitted with pneumonia and COPD exacerbation came back to ER with worsening of symptoms. Plan to admit for pneumonia, alcohol intoxication, Allergies lisinopril Allergy (Verified 04/26/22 13:11) Shortness of breath BC powder Allergy (Mild, Uncoded 04/26/22 13:10) Hives Home Medications: Budesonide/Formoterol Fumarate [Symbicort 160-4.5 Mcg Inhaler] 2 puff IH DAILY 06/23/23 Spironolactone [Aldactone*] 25 mg PO DAILY 06/23/23 Amlodipine [Norvasc*] 10 mg PO DAILY #30 tab 12/02/23 Hydrocodone 10/APAP 325 [[place] 10/325*] 1 tab PO Q6H PRN #30 tab 12/02/23 Multivit,Ther Iron,Ca,FA & Min [Centrum Tablet*] 1 tab PO DAILY #30 tab 12/02/23 Sucralfate [Carafate*] 1 gm PO ACHS #120 tab 12/02/23 Albuterol Neb [Proventil 0.083% Neb Soln] 2.5 mg NEB [id number] PRN 30 Days #1 box 04/07/24 Amlodipine [Norvasc*] 10 mg PO DAILY tab 04/07/24 Budesonide/Formoterol Fumarate [Symbicort 160-4.5 Mcg Inhaler] 2 puff IH DAILY 30 Days #1 inh 04/07/24 Cefdinir [Cefdinir*] 300 mg PO BID 7 Days #14 cap 04/07/24 Ipratropium Neb [Atrovent*] 0.5 mg NEB [id number] PRN 30 Days #1 box 04/07/24 LORazepam [Ativan] 0.5 mg PO BEDTIME PRN #20 tab 04/07/24 Nebulizer Accessories [A.i.r.s. Nebulizer] 1 each MC DAILY PRN 30 Days #1 kit 04/07/24 Nebulizer Accessories [[place] Choice Neb Kit-Adult] 1 each MC DAILY PRN 30 Days #1 ea 04/07/24 Sucralfate [Carafate*] 1 gm PO ACHS tab 04/07/24 Tiotropium [place] [Spiriva] 2 puff IH DAILY 30 Days #1 inh 04/07/24 predniSONE [Prednisone*] 10 mg PO DAILY 30 Days #30 tab 04/07/24 predniSONE [Prednisone*] 20 mg PO TID 30 Days #30 tab 04/07/24 - Past Medical/Surgical History Diabetic: No -: Hypertension -: COPD on chronic steroids/home O2 -: Tobacco abuse -: Alcohol abuse -: GERD -: Obesity -: BUD -: 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 - Family History Mother -: Diabetes, Cancer Notes: colon cancer Father -: Lung disease Notes: COPD - Social History Smoking Status: Current every day smoker Alcohol use: Yes CD- Drugs: No Caffeine use: Yes Place of Residence: Home Review of Systems Per HPI Physical Examination - Vital Signs Temperature: 97.5 F Blood Pressure: 143/73 Pulse: 89 Respirations: 22 Pulse Ox (%): 96 - Physical Exam General: Alert, Oriented x3, Other (Tremors) HEENT: Atraumatic, Normocephalic Neck: Supple, 2+ carotid pulse no bruit Respiratory: Expiratory wheezes, Inspiratory wheezes, Other (Productive cough) Cardiovascular: Normal pulses, Regular rate/rhythm Gastrointestinal: Normal bowel sounds, Soft and benign Musculoskeletal: No clubbing, No swelling Integumentary: No significant lesion, No tenderness/swelling Neurological: Normal speech, Normal strength at 5/5 x4 extr, Other (Tremors,) - Studies Laboratory Data (last 24 hrs) 04/20/24 04/20/24 04/20/24 04:20 04:20 04:20 WBC 5.20 Hgb 13.2 L Hct 38.5 L Plt Count 320 PT 10.2 INR 0.93 APTT 32.9 Sodium 132 L Potassium 4.0 BUN 8 Creatinine 0.65 L Glucose 173 H Magnesium 2.4 Total Bilirubin 0.2 AST 13 L ALT 23 Alkaline Phosphatase 70 Lipase 55 Assessment and Plan - Plan Assessment And Plan Assessment plan Acute hypoxic respiratory failure secondary to pneumonia COPD exacerbation Started on Rocephin and Zithromax Change antibiotic as per sensitivity Oxygen supplementation Will try to wean down oxygen requirement Continue bronchodilators and steroids Alcohol intoxication, CIWA protocol, Librium, multivitamin, thiamine Hypertension Antihypertensives titrated Continue home medications and titrate as needed Hyperlipidemia Continue statin GI/DVT prophylaxis Advanced directive full code Disposition pending hospital course Discharge Plan: Home Discharge Plan: Home - Advance Directives Does patient have a Living Will: No Does patient have a Durable POA for Healthcare: No - Code Status/Comfort Care Code Status: Full Code Critical Care: No Time Spent Managing Pts Care (In Minutes): 55
[2024-04-20] MEDS: LORazepam 2 MG/ML VIAL IV PRN (16:29)
[2024-04-20] MEDS: DIAZEPAM 10 MG/2 ML INJ SYRINGE IV PRN (19:58)
[2024-04-20] MEDS: NICOTINE 14 MG/PAT TD SCH (21:00)
[2024-04-21] MEDS: MAGNES/ALUMIN/SIMET 30ML UCUP PO PRN (03:21)
[2024-04-21 04:11] LABS: ALT/SGPT 19 U/L (16-61); Albumin 2.9 g/dL (3.4-5.0); Albumin/Globulin Ratio 0.8 (1.1-1.8); Alkaline Phosphatase 51 U/L (45-117); Anion Gap 6.7 mEq/L (5.0-15.0); BUN Blood Urea Nitrogen 11 mg/dL (7-18); Bicarbonate 27 mEq/L (21-32); Bilirubin Total 0.3 mg/dL (0.2-1.0); Globulin 3.5 g/dL (2.3-3.5); Glomerular Filtration Rate 119 ml/min (=/>90); Glucose Level 134 mg/dL (74-106); Magnesium 2.3 mg/dL (1.6-2.4); Potassium 3.7 mEq/L (3.5-5.1); Protein, Total 6.4 g/dL (6.4-8.2); Sodium Level 135 mEq/L (136-145)
[2024-04-21 04:13] LABS: AST/SGOT < 10 U/L (15-37)
--- NOTE | 2024-04-21 07:16 | P.PN ---
Subjective Date of Service: 04/21/24 past medical history of alcohol use, COPD, hepatitis B, hypertension, noncompliance, Reports shortness of breath worse with exertion, anxiety, tremors, history of alcohol Currently on 3 L 98%, worsening anxiety, will transfer to ICU for Precedex drip, Review of Systems per HPI Physical Examination - Vital Signs Temperature: 96.8 F Blood Pressure: 136/76 Pulse: 74 Respirations: 20 Pulse Ox (%): 98 - Physical Exam General: Alert, Oriented x3, Other (Anxious) HEENT: Normocephalic Neck: Supple, 2+ carotid pulse no bruit Respiratory: Normal air movement, Diminished Cardiovascular: Normal pulses, Regular rate/rhythm Capillary refill: <2 Seconds Gastrointestinal: Soft and benign Musculoskeletal: Other (face red from ETOH use) Integumentary: No breakdown Neurological: Normal speech, Normal strength at 5/5 x4 extr, Other (Tremors,) Assessment And Plan - Plan Assessment And Plan Assessment plan Acute hypoxic respiratory failure secondary to pneumonia COPD exacerbation Started on Rocephin and Zithromax nebulizer, steroids, Change antibiotic as per sensitivity Oxygen supplementation Will try to wean down oxygen requirement Nightly on 3 L 98% ABG ordered, Medication, treatment noncompliant Alcohol intoxication, CIWA protocol, Valium ordered Transferred to ICU on Precedex drip Hypertension Antihypertensives titrated Continue home medications and titrate as needed Hyperlipidemia Continue statin GI/DVT prophylaxis Advanced directive full code Disposition pending hospital course Discharge Plan: Home Discharge Plan: Home Critical Care: No Time Spent Managing PTS Care (In Minutes): 35
--- NOTE | 2024-04-21 07:53 | P.PN ---
Subjective Date of Service: 04/21/24 53 yrs old Male with past medical history of alcohol use, COPD, hepatitis B, hypertension, chronic hypoxic respiratory failure on 3 L nasal cannula as needed, and history of alcoholism brought to ER with shortness of breath, alcohol withdrawals Shortness of breath worse with exertion, tremors, no reported pain, PRNs analytics given transferred to ICU for worsening DT's Review of Systems per HPI Physical Examination - Vital Signs Temperature: 96.8 F Blood Pressure: 136/76 Pulse: 74 Respirations: 20 Pulse Ox (%): 98 - Physical Exam General: Alert, In no apparent distress, Oriented x3, Other HEENT: Atraumatic, Normocephalic Neck: Supple, JVD not distended Respiratory: Normal air movement, Diminished Cardiovascular: Normal pulses, Regular rate/rhythm Capillary refill: <2 Seconds Gastrointestinal: Non-distended Musculoskeletal: No clubbing, No swelling Neurological: Normal speech, Normal strength at 5/5 x4 extr, Other (Tremors, history of alcohol use) Assessment And Plan - Plan Assessment And Plan Assessment plan Acute hypoxic respiratory failure secondary to pneumonia COPD exacerbation Started on Rocephin and Zithromax Change antibiotic as per sensitivity Oxygen supplementation Will try to wean down oxygen requirement Continue bronchodilators and steroids DT alcohol withdrawals Alcohol intoxication, CIWA protocol, Librium, multivitamin, thiamine 04/21 transferred to ICU for precedex gtt Hypertension Antihypertensives titrated Continue home medications and titrate as needed Hyperlipidemia Continue statin GI/DVT prophylaxis Advanced directive full code Disposition pending hospital course Discharge Plan: Home Discharge Plan: Home Critical Care: Yes Time Spent Managing PTS Care (In Minutes): 55
[2024-04-21] MEDS: POTASSIUM CL SA 10 MEQ TAB PO ONE (08:24)
[2024-04-21] MEDS: Levofloxacin 750mg IV 750 MG/150 ML BAG IV SCH (08:26)
[2024-04-21 10:35] LABS: Blood Gas Oxyhemoglobin 95.7 % (94-97); Blood Gas THB 11.6 g/dl (12-18); Blood O2 Saturation 97.9 % (92-98.5)
--- NOTE | 2024-04-21 12:13 | EKG ---
Test Date: 2024-04-20 Test Time: 04:16:29 [employer]ig [employer] Rooted Hair: [place]INA MEASUREMENT RESULTS: Intervals: Rate: 105 SD: 138 QRSD: 108 QT: 370 QTc: 489 [facility]: P: 60 SD: 138 QRS: 85 T: 80 INTERPRETIVE STATEMENTS: Sinus tachycardia Otherwise normal ECG Compared to ECG 04/19/2024 20:58:54 Sinus rhythm no longer present Prolonged QT interval no longer present Electronically Signed On 04-21-24 12:12:22 CDT by Roberto Woodson
[2024-04-21] MEDS: DEXMEDETOMIDINE HCL 200 MCG in NA CHLORIDE 0.9% 98 ML IV SCH (12:31)
[2024-04-21] MEDS ORDERED: DEXMEDETOMIDINE HCL 200 MCG in NA CHLORIDE 0.9% 98 ML IV SCH (12:43)
[2024-04-21] MEDS: chlordiazePOXIDE HCl 25 MG CAP PO ONE (12:59)
[2024-04-21] MEDS: LORazepam 2 MG/ML VIAL IV ONE (13:57)
[2024-04-21] MEDS ORDERED: ALBUTEROL 2.5 MG/3 ML NEB SOL NEB PRN (14:51)
[2024-04-21] MEDS: chlordiazePOXIDE HCl 25 MG CAP PO SCH (15:49)
[2024-04-21] MEDS: DEXMEDETOMIDINE HCL 1,000 MCG in NA CHLORIDE 0.9% 490 ML IV SCH (20:00)
[2024-04-21] MEDS: TRAMADOL HCL 50 MG TAB PO PRN (20:11)
[2024-04-22] MEDS: MORPHINE 4 MG/ML SYR IV ONE (01:22)
[2024-04-22] MEDS: MORPHINE 4 MG/ML SYR IV PRN ×2 (04:40→20:50)
[2024-04-22 05:14] LABS: Absolute Lymphocytes (CBC) 0.6 K/uL (0.7-4.9); Absolute Monocytes 0.3 K/uL (0.1-1.3); Absolute Neutrophil 5.2 K/uL (1.8-8.0); Basophils % 0.3 % (0-1.3); Hematocrit 35.9 % (39.6-49.0); Hemoglobin 12.1 g/dL (13.6-17.9); Lymphocytes % 9.1 % (15.3-44.8); MCH 33.2 pg (27.0-35.0); MCHC 33.8 g/dL (32.0-36.0); MCV 98.2 fL (80-100); MPV 7.4 fL (7.6-11.3); Monocytes % 5.6 % (3.3-12.3); Nucleated Red Blood Cells % 0.2 % (0-0); Platelets 226 thou/uL (152-406); RBC Red Blood Cell Count 3.66 M/uL (4.33-5.43); Red Cell Distribution Width 16.3 % (12.1-15.2)
[2024-04-22 05:35] LABS: Anion Gap 6.3 mEq/L (5.0-15.0); Phosphorus 2.8 mg/dL (2.5-4.9)
[2024-04-22 05:36] LABS: Magnesium 2.4 mg/dL (1.6-2.4); Potassium 4.3 mEq/L (3.5-5.1)
[2024-04-22] MEDS: AMLODIPINE 5 MG TAB PO ONE (06:24)
--- NOTE | 2024-04-22 07:38 | P.PN ---
Date of Service: 04/22/24 Subjective Date of Service: 04/21/24 Seen in ICU on precdex gtt for DTs, Review of Systems per HPI Physical Examination - Vital Signs Reviewed - Physical Exam General: Alert, AOX3, anxiety, tremors HEENT: Atraumatic, Normocephalic Respiratory: Normal air movement, productive cough Cardiovascular: Normal pulses, Regular rate/rhythm Capillary refill: <2 Seconds Gastrointestinal: Non-distended, nontender Musculoskeletal: No clubbing, No swelling Neurological: Normal speech, Normal strength at 5/5 x4 extr, DT tremors Assessment And Plan - Plan Assessment And Plan Assessment plan Acute hypoxic respiratory failure secondary to pneumonia COPD exacerbation Started on Rocephin and Zithromax changed to Levaquin Change antibiotic as per sensitivity Oxygen supplementation Will try to wean down oxygen requirement Continue bronchodilators and steroids DT alcohol withdrawals Alcohol intoxication, CIWA protocol, Librium, multivitamin, thiamine 04/21 transferred to ICU for precedex gtt educate on ETOH abuse, recommend cessation Hypertension Antihypertensives titrated Continue home medications and titrate as needed Hyperlipidemia Continue statin GI/DVT prophylaxis Advanced directive full code Disposition pending hospital course Discharge Plan: Home Discharge Plan: Home Critical Care: Yes Time Spent Managing PTS Care (In Minutes): 55
[2024-04-22] MEDS: HYDRALAZINE HCL 20 MG/ML VIAL IV PRN (07:56)
[2024-04-22] MEDS: ONDANSETRON 4 MG/2 ML VIAL IV PRN (09:51)
[2024-04-22] MEDS: METHYLPREDNISOLONE 40 MG INJ IV SCH (20:10)
[2024-04-22] MEDS: NICOTINE 21 MG/PAT TD ONE (20:45)
[2024-04-22] MEDS: DEXMEDETOMIDINE HCL 200 MCG in NA CHLORIDE 0.9% 98 ML IV SCH (22:58)
[2024-04-22] MEDS: chlordiazePOXIDE HCl 25 MG CAP PO SCH (23:20)
[2024-04-23 04:58] LABS: Absolute Lymphocytes (CBC) 0.8 K/uL (0.7-4.9); Absolute Monocytes 0.6 K/uL (0.1-1.3); Absolute Neutrophil 8.5 K/uL (1.8-8.0); Basophils % 0.2 % (0-1.3); Eosinophils % 0.1 % (0-4.4); Hematocrit 38.1 % (39.6-49.0); Hemoglobin 12.7 g/dL (13.6-17.9); Lymphocytes % 7.6 % (15.3-44.8); MCHC 33.3 g/dL (32.0-36.0); MCV 99.3 fL (80-100); MPV 7.9 fL (7.6-11.3); Monocytes % 6.3 % (3.3-12.3); Nucleated Red Blood Cells % 0.1 % (0-0); Platelets 221 thou/uL (152-406); RBC Red Blood Cell Count 3.84 M/uL (4.33-5.43); Red Cell Distribution Width 16.1 % (12.1-15.2)
[2024-04-23 04:59] LABS: Neutrophils % 85.8 % (41.7-73.7)
[2024-04-23 05:12] LABS: Anion Gap 6.7 mEq/L (5.0-15.0); Magnesium 2.6 mg/dL (1.6-2.4); Potassium 3.7 mEq/L (3.5-5.1)
--- NOTE | 2024-04-23 06:41 | P.PN ---
Date of Service: 04/23/24 Subjective Date of Service: 04/21/24 remains in ICU for DT's, precdex gtt, reports feeling some better Review of Systems per HPI Physical Examination - Vital Signs Reviewed - Physical Exam General: AOx 3, tremors, responds to verbal HEENT: Atraumatic Respiratory: Normal air movement, unlabored Cardiovascular: Normal pulses, Capillary refill: <2 Seconds Gastrointestinal: Non-distended Musculoskeletal: No clubbing, No swelling Neurological: Normal speech, Normal strength at 5/5 x4 extr, Assessment And Plan - Plan Assessment And Plan Assessment plan Acute hypoxic respiratory failure secondary to pneumonia COPD exacerbation Started on Rocephin and Zithromax changed to Levaquin Will try to wean down oxygen requirement Continue bronchodilators and steroids 93 4L BC no growth DT alcohol withdrawals Alcohol intoxication, CIWA protocol, Librium, multivitamin, thiamine 04/21 transferred to ICU for precedex gtt educate on ETOH abuse, recommend cessation Hypertension Antihypertensives titrated Continue home medications and titrate as needed hydralzaine for hypertensive, low HR <60 Hyperlipidemia Continue statin GI/DVT prophylaxis Advanced directive full code Disposition pending hospital course Discharge Plan: Home Discharge Plan: Home Critical Care: Yes Time Spent Managing PTS Care (In Minutes): 55
[2024-04-23] MEDS: POTASSIUM CL SA 10 MEQ TAB PO ONE (08:29)
[2024-04-23] MEDS: NICOTINE 21 MG/PAT TD SCH (08:30)
[2024-04-23] MEDS: AMLODIPINE 5 MG TAB PO SCH (08:30)
[2024-04-23] MEDS ORDERED: SODIUM CHLORIDE 0.9% 10ML INJ IV PRN (15:37)
[2024-04-23] MEDS: chlordiazePOXIDE HCl 25 MG CAP PO SCH (16:10)
[2024-04-23] MEDS: SUCRALFATE 1 GM TABLET PO SCH (17:13)
[2024-04-23] MEDS: PANTOPRAZOLE 40 MG INJ IVP ONE (17:13)
[2024-04-23] MEDS: FENTANYL CITR 100 MCG/2 ML IV PRN (17:15)
[2024-04-23] MEDS: PANTOPRAZOLE 40 MG INJ IVP SCH (20:48)
[2024-04-23] MEDS: predniSONE 20 MG TAB PO SCH (20:48)
[2024-04-24 04:57] LABS: Absolute Lymphocytes (CBC) 0.9 K/uL (0.7-4.9); Absolute Monocytes 0.7 K/uL (0.1-1.3); Basophils % 0.4 % (0-1.3); Eosinophils % 0.2 % (0-4.4); Hematocrit 37.7 % (39.6-49.0); Hemoglobin 12.8 g/dL (13.6-17.9); Lymphocytes % 8.8 % (15.3-44.8); MCH 33.5 pg (27.0-35.0); MCHC 34.1 g/dL (32.0-36.0); MCV 98.2 fL (80-100); MPV 7.6 fL (7.6-11.3); Monocytes % 7.6 % (3.3-12.3); Nucleated Red Blood Cells % 0.1 % (0-0); Platelets 222 thou/uL (152-406); RBC Red Blood Cell Count 3.84 M/uL (4.33-5.43); Red Cell Distribution Width 16.3 % (12.1-15.2)
[2024-04-24 05:15] LABS: Anion Gap 7.1 mEq/L (5.0-15.0); Magnesium 2.4 mg/dL (1.6-2.4); Phosphorus 3.7 mg/dL (2.5-4.9); Potassium 4.1 mEq/L (3.5-5.1)
--- NOTE | 2024-04-24 09:37 | P.PN ---
Subjective O2 weaned to 2, resting with eyes closed, remains in ICU for DT's, precdex gtt, reports feeling some better Review of Systems per HPI Physical Examination - Vital Signs Reviewed - Physical Exam General: Alert and oriented x 3 Respiratory: Normal air movement, unlabored Cardiovascular: Normal pulses, regular, no edema Capillary refill: <2 Seconds Gastrointestinal: Soft, non-distended Musculoskeletal: No clubbing, No swelling Neurological: Normal speech, Normal strength at 5/5 x4 extr, Assessment And Plan - Plan Assessment And Plan Assessment plan Acute hypoxic respiratory failure secondary to pneumonia COPD exacerbation Started on Rocephin and Zithromax changed to Levaquin Will try to wean down oxygen requirement Continue bronchodilators and steroids 93 3L weaned BC no growth DT alcohol withdrawals Alcohol intoxication, CIWA protocol, Librium, multivitamin, thiamine 04/21 transferred to ICU for precedex gtt educate on ETOH abuse, recommend cessation Hypertension Antihypertensives titrated Continue home medications and titrate as needed hydralzaine for hypertensive, low HR <60 Hyperlipidemia Continue statin GI/DVT prophylaxis Advanced directive full code Disposition pending hospital course Discharge Plan: Home Discharge Plan: Home Critical Care: Yes Time Spent Managing PTS Care (In Minutes): 55
[2024-04-24 12:15] VITALS: O2SAT 95
[2024-04-24 12:37] VITALS: TEMP 98.4
[2024-04-24 13:29] VITALS: BP 111/68
--- NOTE | 2024-04-24 15:03 | P.DS ---
Admission Date: 04/21/24 Discharge Date: 04/24/24 Disposition: ROUTINE DISCHARGE Discharge Condition: GOOD Brief History of Present Illness: 53 yrs old Male with past medical history of alcohol use, COPD, hepatitis B, hypertension, chronic hypoxic respiratory failure on 3 L nasal cannula as needed, and history of alcoholism brought to ER with shortness of breath. He reports and has been progressively worsening and was brought to ER. Patient also has subjective fever but no chills. Associated with cough with mucoid expectoration. Denies any nausea vomiting or diarrhea. Reported alcohol use, alcohol level 232. Patient was recently being discharged from the hospital where he admitted with pneumonia and COPD exacerbation came back to ER with worsening of symptoms. Plan to admit for pneumonia, alcohol intoxication, - Physical Exam General: Alert, Oriented x3, Cooperative HEENT: Atraumatic, Normocephalic Neck: Supple, 2+ carotid pulse no bruit Respiratory: Diminished, inspiratory wheeze Cardiovascular: Regular rate/rhythm, Normal S1 S2, No gallops Capillary refill: <2 Seconds Gastrointestinal: Soft and benign, W/out hepatosplenomegaly, No tenderness, No masses Musculoskeletal: No clubbing, No swelling Integumentary: No rashes, No breakdown Neurological: Normal speech, Normal strength at 5/5 x4 extr, Cranial nerves 3-12 intact, Normal reflexes 2+ Lymphatics: No axilla or inguinal lymphadenopathy Hospital Course: Patient with COPD, EtOH use, experienced some alcohol withdrawals, was admitted to ICU on Precedex drip, weaned. patient is now tolerating diet, instructed on alcohol cessation, stable for discharge to home with follow-up appointment with primary care physician. Follow up with Pulmonary after discharge. PROBLEM: EtOH use COPD exacerbation, Patient has inhalers, follow-up with pulmonary after discharge Discharge medication prednisone, Protonix, Carafate, Thiamine, Librium, Hydrocodone as needed severe pain, Continue home medicines as previously prescribed GOAL: Clear understanding of disease process INSTRUCTIONS: Physician Discharge Instructions: -Follow-up with PCP in 1 to 2 weeks -Please call Dr. Martin at [phone] if any questions regarding hospital stay -Please call nursing station at [phone] if any nursing or medication questions -Return to the emergency room if symptoms worsen Diet: ADA, low sodium Activity: Fall precautions Vital Signs/Physical Exam: Temp Pulse Resp BP Pulse Ox 98.4 F 82 12 111/68 94 04/24/24 12:00 04/24/24 13:00 04/24/24 13:00 04/24/24 13:00 04/24/24 13:00 Laboratory Data at Discharge: WBC 9.70 thou/uL (4.3-10.9) 04/24/24 04:30 Hgb 12.8 g/dL (13.6-17.9) L 04/24/24 04:30 Hct 37.7 % (39.6-49.0) L 04/24/24 04:30 Plt Count 222 thou/uL (152-406) 04/24/24 04:30 PT 10.2 SECONDS (9.5-12.5) 04/20/24 04:20 INR 0.93 04/20/24 04:20 APTT 32.9 SECONDS (24.3-36.9) 04/20/24 04:20 Sodium 136 mEq/L (136-145) 04/24/24 04:30 Potassium 4.1 mEq/L (3.5-5.1) 04/24/24 04:30 BUN 19 mg/dL (7-18) H 04/24/24 04:30 Creatinine 0.61 mg/dL (0.70-1.30) L 04/24/24 04:30 Glucose 129 mg/dL (74-106) H 04/24/24 04:30 Phosphorus 3.7 mg/dL (2.5-4.9) 04/24/24 04:30 Magnesium 2.4 mg/dL (1.6-2.4) 04/24/24 04:30 Total Bilirubin 0.3 mg/dL (0.2-1.0) 04/21/24 03:04 AST < 10 U/L (15-37) L 04/21/24 03:04 ALT 19 U/L (16-61) 04/21/24 03:04 Alkaline Phosphatase 51 U/L (45-117) D 04/21/24 03:04 Lipase 55 U/L (13-75) 04/20/24 04:20 Home Medications: Spironolactone [Aldactone*] 25 mg PO DAILY 06/23/23 Multivit,Ther Iron,Ca,FA & Min [Centrum Tablet*] 1 tab PO DAILY #30 tab 12/02/23 Albuterol Neb [Proventil 0.083% Neb Soln] 2.5 mg NEB [id number] PRN 30 Days #1 box 04/07/24 Budesonide/Formoterol Fumarate [Symbicort 160-4.5 Mcg Inhaler] 2 puff IH DAILY 30 Days #1 inh 04/07/24 Cefdinir [Cefdinir*] 300 mg PO BID 7 Days #14 cap 04/07/24 Ipratropium Neb [Atrovent*] 0.5 mg NEB [id number] PRN 30 Days #1 box 04/07/24 LORazepam [Ativan*] 0.5 mg PO BEDTIME PRN #20 tab 04/07/24 Tiotropium [place] [Spiriva] 2 puff IH DAILY 30 Days #1 inh 04/07/24 predniSONE [Prednisone*] 10 mg PO DAILY 30 Days #30 tab 04/07/24 Amlodipine [Norvasc*] 5 mg PO DAILY #30 tab 04/24/24 Hydrocodone 10/APAP 325 [[place] 10/325*] 1 tab PO Q6H PRN #30 tab 04/24/24 Pantoprazole [Protonix Tab] 40 mg PO Q12H #60 tab 04/24/24 Sucralfate [Carafate*] 1 gm PO ACHS #60 tab 04/24/24 Thiamine HCl [Vitamin B-1*] 100 mg PO DAILY #30 tab 04/24/24 chlordiazePOXIDE HCl [Chlordiazepoxide HCl] 10 mg PO Q6H #130 cap 04/24/24 predniSONE [Prednisone*] 20 mg PO BID #14 tab 04/24/24 New Medications: Sucralfate [Carafate*] 1 gm PO ACHS #60 tab chlordiazePOXIDE HCl [Chlordiazepoxide HCl] 10 mg PO Q6H #130 cap Hydrocodone 10/APAP 325 [[place] 10/325*] 1 tab PO Q6H PRN #30 tab PRN Reason: Pain Scale 5-7 (Moderate) Amlodipine [Norvasc*] 5 mg PO DAILY #30 tab predniSONE [Prednisone*] 20 mg PO BID #14 tab Pantoprazole [Protonix Tab] 40 mg PO Q12H #60 tab Thiamine HCl [Vitamin B-1*] 100 mg PO DAILY #30 tab Physician Discharge Instructions: [place], [place] [address] [place] [address] P:[phone] ext. [phone] -DC IV and DC home -Follow-up with PCP in 1 to 2 weeks -Follow-up with Cardiology in 1 to 2 weeks -Please call Dr. Martin at [phone] if any questions regarding hospital stay -Please call nursing station at [phone] if any nursing or medication questions -Return to the emergency room if symptoms worsen Diet: AHA Activity: Fall precautions Followup: Xenia AUSTIN,Adrianna Gamez DO [Primary Care Provider] - Time spent managing pt's care (in minutes): 55
--- NOTE | 2024-04-25 14:51 | EKG ---
Test Date: 2024-04-25 Test Time: 02:30:30 Composite Assembler: SHAYAN MEASUREMENT RESULTS: Intervals: Rate: 113 MA: 130 QRSD: 98 QT: 340 QTc: 466 [place]: P: 69 MA: 130 QRS: 83 T: 39 INTERPRETIVE STATEMENTS: Sinus tachycardia Incomplete right bundle branch block ST & T wave abnormality, consider inferior ischemia Abnormal ECG Compared to ECG 04/25/2024 02:29:54 No significant changes Electronically Signed On 04-25-24 14:50:38 CDT by Rosalino Albert
--- NOTE | 2024-04-26 14:13 | EKG ---
Test Date: 2024-04-26 Test Time: 02:11:07 [employer]: BAILEY MEASUREMENT RESULTS: Intervals: Rate: 105 CA: 130 QRSD: 102 QT: 358 QTc: 473 [place]: P: 75 CA: 130 QRS: 92 T: 71 INTERPRETIVE STATEMENTS: Sinus tachycardia Rightward axis Incomplete right bundle branch block Nonspecific ST and T wave abnormality Abnormal ECG Compared to ECG 04/26/2024 02:08:54 Possible ischemia no longer present ST (T wave) deviation still present Electronically Signed On 04-26-24 14:10:44 CDT by Rosalino Albert
--- NOTE | 2024-04-26 14:19 | EKG ---
Test Date: 2024-04-23 Test Time: 12:32:52 Sap H[employer] Developer: MEGA MEASUREMENT RESULTS: Intervals: Rate: 62 AR: 136 QRSD: 102 QT: 466 QTc: 472 [place]: P: 67 AR: 136 QRS: 71 T: 75 INTERPRETIVE STATEMENTS: Normal sinus rhythm Incomplete right bundle branch block Borderline ECG Compared to ECG 04/20/2024 04:16:29 Incomplete right bundle-branch block now present Sinus tachycardia no longer present Electronically Signed On 04-26-24 14:13:14 CDT by Rosalino Albert
== END 2024-04-24 14:00 | disposition home or self-care (01) | DRG 896 ==
LOC: ER 04:10 → ERHOLD 06:22 → 2ND 07:06 → 3RD-ICU 04-21 10:25 → OBSVTOIN 04-21 10:27
PROVIDERS: ADMIT Hospitalist; ATTEND Hospitalist
DX: F10.239 Alcohol dependence with withdrawal, unspecified (principal); J18.9 Pneumonia, unspecified organism; J96.01 Acute respiratory failure with hypoxia; J44.1 Chronic obstructive pulmonary disease with (acute) exacerbation; J44.0 Chronic obstructive pulmonary disease with (acute) lower respiratory infection; B19.10 Unspecified viral hepatitis B without hepatic coma; F10.229 Alcohol dependence with intoxication, unspecified; I10 Essential (primary) hypertension; E78.5 Hyperlipidemia, unspecified; F41.9 Anxiety disorder, unspecified; K21.9 Gastro-esophageal reflux disease without esophagitis; M81.0 Age-related osteoporosis without current pathological fracture; Z88.8 Allergy status to other drugs, medicaments and biological substances; Z68.27 Body mass index [BMI] 27.0-27.9, adult; Z99.81 Dependence on supplemental oxygen; Z79.52 Long term (current) use of systemic steroids; Z89.022 Acquired absence of left finger(s); Z79.899 Other long term (current) drug therapy; Z91.148 Patient's other noncompliance with medication regimen for other reason; Y90.7 Blood alcohol level of 200-239 mg/100 ml
CPT/HCPCS: 36415; 71045; 80048; 80053; 80076; 81001; 82077; 82550; 82805; 83690; 83735; 83880; 84100; 84484; 85025; 85610; 85730; 87040; 93005; 94640; 94760; 96365; 96366; 96372; 96375; 99285; C9113; G0378; J0360; J2405; J2919; J2920; J3010; J3360; J3486; J7030; J7512; J7613; J7644

== ENCOUNTER 2024-04-25 02:00 | Emergency (ER) | payer OTHER ==
--- OUTSIDE RECORDS SUMMARY | 2024-04-25 02:05 | XMS REPORT | Continuity of Care Document ---
Author Name Unknown Address [address] [facility] [address] [place] [address] [facility] thconnect Address [address] [facility] 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 Name Role Phone ADRIANNA LOPEZ Primary Care Physician Unavailab DARIEN Posey Attending Clinician Unavailable MINNA ORTA Attending Clinician Unavailab WENDY High Attending Clinician Unava SHARATH Mancera Attending Clinician Unavailable PEG CAMP Attending Clinician Unavailable Peg Camp NP Attending Clinician [phone] DEMETRIA DAVENPORT Attending Clinician UnaDemetria Carver MD Attending Clinician + Christina Victoria Attending Clinician [phone] JAC NAVARRO Attending Clinician Unavailable Jac Navarro MD Attending Clinician [phone] TYLER ROWE Attending Clinician Unavailab MELINDA Boothe Attending Clinician Unavailable Melinda Maciel DO Attending Clinician [phone] CHRISTY HOLLIADY Attending Clinician Unavailable Christy Holliday MD Attending Clinician MARIA ELENA CHAN MEDICAL Attending George akins Unavailable DENISE SUNG Attending Clinician Unavailable KARLEY ADAMS Attending Clinician Unavailable JAC NAVARRO Admitting Clinician Unavailable MELINDA MACIEL Admitting Clinician Unavailable CHRISTY HOLLIDAY Admitting Clinician Unavailable Payers Payer Name Policy Type Policy Number Effective Date Expirati on Date Source [facility] COPAY FOCUS 9 [id number] 2024 00:00:00 [facility] [id number] 2023 00:00:00 2024 00:00:00 [employer] [id number] 2023 00:00:00 [employer] 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 TESTER ARMATURE OR FIELDS 94 ON 9 [id number] 2023 00:00:00 Problems Condition Name Condition Details Condition Category Status Onset Date Resolution Date Last Treatment Date Treating Clinician Comments Source Acute exacerbati on of chronic obstructiv e pulmonary disease (COPD) Acute exacerbati on of chronic obstructiv e pulmonary disease (COPD) Disease Active 03-24 00:00: 00 [facility] Obesity (BMI 30-39.9) Obesity (BMI 30-39.9) Disease Active 03-24 00:00: 00 [facility] Allergies, Adverse Reactions, Alerts Allergy Name Allergy Type Status Severity Reaction(s) Onset Date Inactive Date Treating Clinician Comments Source Lisinopr il Propensi ty to adverse reaction s Active Anaphylaxis 03-24 00:00: 00 [facility] LISINOPR [place] DRUG INGREDI Active Anaphylaxis 03-24 00:00: 00 [facility] Social History Social Habit Start Date Stop Date Quantity Comments Source History of tobacco use Smokes tobacco daily [facility] of Social function 2024-02-08 00:00:00 2024-02-08 00:00:00 [facility] Alcohol intake 2024-02-08 00:00:00 2024-02-08 00:00:00 4.29 /d [facility] Exposure to SARS-CoV-2 (event) 2022-10-04 00:00:00 2022-10-14 10:25:00 Not sure [facility] Tobacco use and exposure 2018-03-24 00:00:00 2018-03-24 00:00:00 User of smokeless tobacco [facility] Tobacco Comment 2018-03-24 00:00:00 2018-03-24 00:00:00 trying to quit [facility] Sex Assigned At 1970 00:00:00 1970 00:00:00 [facility] Smoking Status Start Date Stop Date Source Smokes tobacco daily 2018-03-24 00:00:00 [facility] Medications Ordered Medication Name Filled Medication Name Start Date Stop Date Current Medication? Ordering Clinician Indication Dosage Frequency Signature (SIG) Comments Components Source ketorolac (TORADOL) injection 30 mg 02-17 03:15: 00 02-17 15:14 :00 Yes 30mg 30 mg, Slow IV Push, ONCE, 1 dose, On Thu02/17/24 at 2215, Routine [facility] methylpredn isolone sod succ (SOLU-MEDRO L) injection 125 mg 02-17 03:00: 00 02-17 14:59 :00 Yes 125mg 125 mg, Intravenou s, ONCE, 1 dose, On Thu02/17/24 at 2200, 2 mL [facility] ipratropium -albuteroL (DUONEB) 0.5 mg-3 mg(2.5 mg base)/3 mL nebulizer solution 6 mL 02-17 03:00: 00 02-17 14:59 :00 Yes 6mL 6 mL, Inhalation , ONCE NOW, 1 dose, On Thu02/17/24 at 2200, Routine [facility] NaCl 0.9% (NS) bolus infusion 1,000 mL 02-17 03:00: 00 02-17 14:59 :00 Yes 1000mL at 999 mL/hr, 1,000 mL, IV Infusion, ONCE, 1 dose, On Thu02/17/24 at 2200, [facility] triamterene -hydrochlor othiazide 37.5-25 mg per capsule 02-16 20:52: 37 02-16 00:00 :00 No 1{capsu le} Take 1 capsule by mouth every morning. [facility] albuterol 5 mg/mL nebulizer solution 02-16 20:51: 42 02-16 00:00 :00 No 2.5mg Inhale 2.5 mg every 6 (six) hours as needed for Wheezing or Shortness of Breath. [facility] ketorolac (TORADOL) injection 15 mg 02-08 03:00: 00 02-08 02:21 :00 No 15mg 15 mg, Slow IV Push, ONCE, 1 dose, On Thu02/08/24 at 2200, Routine [facility] iopamidol (ISOVUE 370-500 mL) injection 100 mL 02-07 22:30: 00 02-07 22:30 :00 Yes [id number] 100mL 100 mL, Intravenou s, ONCE, 1 dose, On Thu02/08/24 at 1730, Routine [facility] ipratropium -albuteroL (DUONEB) 0.5 mg-3 mg(2.5 mg base)/3 mL nebulizer solution 3 mL 02-07 21:15: 00 02-07 20:45 :00 No 3mL 3 mL, Inhalation , ONCE, 1 dose, On Thu02/08/24 at 1615, Routine [facility] morpHINE (2 mg/mL) injection 4 mg 02-07 21:15: 00 02-07 20:27 :00 No 4mg 4 mg, Slow IV Push, ONCE, 1 dose, On Thu02/08/24 at 1615, STAT [facility] ondansetron (ZOFRAN (PF)) injection 4 mg 02-07 21:15: 00 02-07 20:22 :00 No 4mg 4 mg, Slow IV Push, ONCE, 1 dose, On Thu02/08/24 at 1615, [facility] magnesium sulfate in water 2 gram/50 mL (4 %) infusion 2 g 02-07 21:00: 00 02-07 21:30 :00 No 2g 2 g, IV Piggyback, Administer over 60 Minutes, ONCE, 1 dose, On Thu02/08/24 at 1600, [facility] ipratropium -albuteroL (DUONEB) 0.5 mg-3 mg(2.5 mg base)/3 mL nebulizer solution 3 mL 02-07 20:30: 00 02-07 19:31 :00 No 3mL 3 mL, Inhalation , ONCE, 1 dose, On Thu02/08/24 at 1530, Routine [facility] HYDROcodone -acetaminop hen (NORCO) 10-325 mg tablet 1 tablet 01-13 13:15: 00 01-13 12:15 :00 No 1{tbl} 1 tablet, Oral, ONCE, 1 dose, On Thu01/14/24 at 0715, [facility] ipratropium -albuteroL (DUONEB) 0.5 mg-3 mg(2.5 mg base)/3 mL nebulizer solution 3 mL 01-13 13:00: 00 01-13 11:53 :00 No 3mL 3 mL, Inhalation , ONCE NOW, 1 dose, On Thu01/14/24 at 0700, [facility] ondansetron (ZOFRAN (PF)) injection 4 mg 01-13 11:30: 00 01-13 11:37 :00 No 4mg 4 mg, Slow IV Push, ONCE, 1 dose, On Thu01/14/24 at 0530, [facility] morpHINE (4 mg/mL) injection 4 mg 01-13 11:30: 00 01-13 11:37 :00 No 4mg 4 mg, Slow IV Push, ONCE, 1 dose, On Thu01/14/24 at 0530, STAT [facility] azithromyci n (ZITHROMAX Z-PORTER) 250 mg tablet 01-13 00:00: 00 02-16 00:00 :00 No [id number] Take 500 mg on day 1 then 250 mg on days 2-5 [facility] predniSONE 20 mg tablet 01-13 00:00: 00 02-16 00:00 :00 No [id number] Take 1 po tid x 2 days, then take 1 po bid x 3 days, then take 1 po daily x 3 days. [facility] acetaminoph en-codeine 300-30 mg tablet 01-13 00:00: 00 01-21 04:59 :00 No [id number] 1{tbl} Take 1 tablet by mouth every 6 (six) hours as needed for Pain (scale 7-10) (severe cough) for up to 7 days. Indication s: acute pain, severe cough [facility] clonazePAM 1 mg tablet 12-26 00:00: 00 02-16 00:00 :00 No 1mg Take 1 tablet by mouth at bedtime as needed for Other (anxiety). [facility] KCL (KLOR-CON M20) tablet 40 mEq 12-23 05:00: 00 12-23 05:07 :00 No 40meq 40 mEq, Oral, ONCE, 1 dose, On Thu12/22/23 at 2300, [facility] NaCl 0.9% (NS) bolus infusion 1,000 mL 12-23 05:00: 00 12-23 05:09 :00 No 1000mL at 999 mL/hr, 1,000 mL, IV Infusion, ONCE, 1 dose, On Thu12/22/23 at 2300, [facility] ondansetron (ZOFRAN (PF)) injection 4 mg 12-23 04:30: 00 12-23 04:24 :00 No 4mg 4 mg, Slow IV Push, ONCE, 1 dose, On Thu12/22/23 at 2230, [facility] maalox:diph enhydrAMINE :lidocaine 2 % viscous 1:1:1 (FIRST-MOUT HWASH BLM) oral suspension 15 mL 12-23 04:15: 00 12-23 04:17 :00 No 15mL 15 mL, Oral, ONCE, 1 dose, On Thu12/22/23 at 2215, Routine [facility] famotidine (PEPCID (PF)) injection 20 mg 12-23 04:15: 00 12-23 04:15 :00 No 20mg 20 mg, Slow IV Push, ONCE, 1 dose, On Thu12/22/23 at 2215, [facility] HYDROcodone -acetaminop hen (NORCO) 10-325 mg tablet 1 tablet 12-22 04:30: 00 12-22 16:29 :00 No 1{tbl} 1 tablet, Oral, ONCE, 1 dose, On Thu12/21/23 at 2230, Routine [facility] pantoprazol e (PROTONIX) 80 mg in NaCl 0.9% (NS) 20 mL syringe 12-22 04:15: 00 12-22 16:14 :00 No 80mg 80 mg, IV Push, ONCE, 1 dose, On Thu12/21/23 at 2215, Administer over 2 Minutes, 20 mL [facility] iopamidol (ISOVUE 370-500 mL) injection 100 mL 12-22 03:30: 00 12-22 03:30 :00 No [id number] 100mL 100 mL, Intravenou s, ONCE, 1 dose, On Thu12/21/23 at 2130, Routine [facility] morpHINE (4 mg/mL) injection 4 mg 12-22 03:30: 00 12-22 02:16 :00 No 4mg 4 mg, Slow IV Push, ONCE, 1 dose, On Thu12/21/23 at 2130, Routine [facility] ondansetron (ZOFRAN (PF)) injection 4 mg 12-22 02:45: 00 12-22 02:02 :00 No 4mg 4 mg, Slow IV Push, ONCE, 1 dose, On Thu12/21/23 at 2045, Routine [facility] hydrocortis one 25 mg suppository 12-22 00:00: 00 Yes [id number] 25mg Insert 1 Suppositor y into rectum 2 (two) times daily as needed for Rectal itching/pa in. [facility] ondansetron 4 mg disintegrat ing tablet 12-22 00:00: 00 02-16 00:00 :00 No [id number] 4mg Take 1 tablet by mouth every 8 (eight) hours as needed for Nausea and Vomiting (N/V). [facility] amoxicillin -clavulanat e 875-125 mg per tablet 12-22 00:00: 00 01-02 05:59 :00 No [id number] 1{tbl} Take 1 tablet by mouth every 12 (twelve) hours for 10 days. [facility] methylpredn isolone sod succ (SOLU-MEDRO L) injection 125 mg 2022-11 08:45: 00 10-27 20:44 :00 No 125mg 125 mg, Slow IV Push, ONCE, 1 dose, On Thu10/27/23 at 0245, STAT [facility] ipratropium -albuteroL (DUONEB) 0.5 mg-3 mg(2.5 mg base)/3 mL nebulizer solution 3 mL 2022-11 08:45: 00 10-27 20:44 :00 No 3mL 3 mL, Inhalation , ONCE NOW, 1 dose, On Thu10/27/23 at 0245, [facility] diazePAM (VALIUM) tablet 10 mg 2022-11 07:45: 00 10-27 19:44 :00 No 10mg 10 mg, Oral, ONCE, 1 dose, On Thu10/27/23 at 0145, [facility] levoFLOXaci n (LEVAQUIN) tablet 500 mg 2022-11 07:45: 00 10-27 19:44 :00 No 500mg 500 mg, Oral, ONCE, 1 dose, On Thu10/27/23 at 0145, [facility]
Re ason for Anti-Infec tive: Empiric Non-Surgic al Prophylaxi s
Durat ion of therapy: Once (ED) [facility] iopamidol (ISOVUE 370-500 mL) injection 70 mL 2021-11 18:30: 00 10-14 18:30 :00 No [id number] 70mL 70 mL, Intravenou s, ONCE, 1 dose, On Thu10/14/22 at 1230, Routine [facility] methylpredn isolone sod succ (SOLU-MEDRO L) injection 125 mg 2021-11 18:00: 00 Yes 125mg 125 mg, Intravenou s, Q6H, First dose on Thu10/14/22 at 1200, Until Discontinu ed, Routine [facility] furosemide (LASIX) injection 40 mg 2021-11 17:45: 00 10-14 16:39 :00 No 40mg 40 mg, IV Push, ONCE, 1 dose, On Thu10/14/22 at 1145, [facility] ipratropium -albuteroL (DUONEB) 0.5 mg-3 mg(2.5 mg base)/3 mL nebulizer solution 3 mL 2021-11 17:30: 00 10-14 16:41 :00 No 3mL 3 mL, Inhalation , ONCE, 1 dose, On Thu10/14/22 at 1130, Routine [facility] FENTanyl PF (SUBLIMAZE (PF)) injection 50 mcg 2021-11 16:45: 00 10-14 16:39 :00 No 50ug 50 mcg, Slow IV Push, ONCE, 1 dose, On Thu10/14/22 at 1045, Routine [facility] levoFLOXaci n 750 mg tablet 2021-11 00:00: 00 02-16 00:00 :00 No [id number] 750mg Take 1 tablet by mouth every 24 (twenty-fo ur) hours. [facility] HYDROcodone -acetaminop hen (NORCO) 10-325 mg tablet 1 tablet 03-12 12:15: 00 03-12 11:21 :00 No 1{tbl} 1 tablet, Oral, ONCE, 1 dose, On Thu03/12/22 at 0715, Routine [facility] HYDROcodone -acetaminop hen 10-325 mg tablet 03-12 00:00: 00 03-20 04:59 :00 No [id number] 1{tbl} Take 1 tablet by mouth every 6 (six) hours as needed for Pain (scale 7-10) for up to 7 days. Indication s: acute pain [facility] ipratropium -albuteroL (DUONEB) 0.5 mg-3 mg(2.5 mg base)/3 mL nebulizer solution 3 mL 02-20 13:00: 00 Yes 3mL 3 mL, Inhalation , QID, First dose on Thu02/20/22 at 0800, Until Discontinu ed, Routine [facility] methylPREDN ISolone sod succ (SOLU-MEDRO L (PF)) injection 40 mg 02-20 11:45: 00 02-20 10:43 :00 No 40mg 40 mg, Intravenou s, ONCE, 1 dose, On Thu02/20/22 at 0645, STAT [facility] foLIC acid (FOLATE) tablet 1 mg 02-20 11:45: 00 02-20 10:41 :00 No 1mg 1 mg, Oral, ONCE, 1 dose, On Thu02/20/22 at 0645, [facility] thiamine (VITAMIN B1) injection 100 mg 02-20 11:45: 00 02-20 10:43 :00 No 100mg 100 mg, Intravenou s, ONCE, 1 dose, On Thu02/20/22 at 0645, [facility] LORazepam (ATIVAN) injection 2 mg 02-20 11:45: 00 02-20 10:42 :00 No 2mg 2 mg, Slow IV Push, ONCE, 1 dose, On [facility] 02/20/22 at 0645, STAT [facility] ipratropium -albuteroL (DUONEB) 0.5 mg-3 mg(2.5 mg base)/3 mL nebulizer solution 3 mL 02-20 10:30: 00 02-20 09:34 :00 No 3mL 3 mL, Inhalation , ONCE, 1 dose, On Kym 02/20/22 at 0530, Routine [facility] albuterol 90 mcg/actuati on inhaler 02-20 00:00: 00 Yes [id number] 2{puff} Inhale 2 Puffs every 4 (four) hours as needed for Wheezing or Shortness of Breath. [facility] triamterene -hydrochlor othiazid 37.5-25 mg tablet 02-20 00:00: 00 Yes [id number] 1{tbl} Take 1 tablet by mouth daily. [facility] chlordiazeP OXIDE 25 mg capsule 02-20 00:00: 00 Yes [id number] 25mg Take 1 capsule by mouth every 6 (six) hours as needed for Anxiety, Agitation, Heart Rate => 100 or Detox. [facility] predniSONE 10 mg tablet 02-20 00:00: 00 02-16 00:00 :00 No [id number] TAKE ONE TABLET BY MOUTH DAILY [facility] albuterol 2.5 mg /3 mL (0.083 %) nebulizer solution 02-20 00:00: 00 02-16 00:00 :00 No [id number] 2.5mg Inhale 3 mL every 4 (four) hours. May also nebulize one extra every 6 hours. [facility] budesonide- formoteroL 160-4.5 mcg/actuati on inhaler 02-20 00:00: 00 02-16 00:00 :00 No [id number] 2{puff} Inhale 2 Puffs 2 (two) times daily. [facility] albuterol 5 mg/mL nebulizer solution 07-16 14:02: 20 Yes 2.5mg Inhale 2.5 mg every 6 (six) hours as needed for Wheezing or Shortness of Breath. [facility] budesonide- formoterol 160-4.5 mcg/actuati on inhaler 07-16 00:00: 00 Yes 2{puff} Inhale 2 Puffs 2 (two) times daily. [facility] albuterol 2.5 mg /3 mL (0.083 %) nebulizer solution 07-16 00:00: 00 Yes 2.5mg Inhale 3 mL every 4 (four) hours as needed for Wheezing or Shortness of Breath. [facility] triamterene -hydrochlor othiazide 37.5-25 mg per capsule 03-26 16:32: 14 Yes 1{capsu le} Take 1 capsule by mouth every morning. [facility] amLODIPine 10 mg tablet 03-26 16:32: 14 Yes 10mg Take 10 mg by mouth at bedtime. [facility] gabapentin 100 mg capsule 03-26 16:32: 14 Yes 100mg Take 100 mg by mouth 2 (two) times daily as needed ([facility] pain). [facility] foLIC acid 1 mg tablet 03-26 16:32: 14 Yes 1mg Take 1 mg by mouth daily. [facility] budesonide- formoterol 160-4.5 mcg/actuati on inhaler 03-26 00:00: 00 02-16 00:00 :00 No 2{puff} Inhale 2 Puffs 2 (two) times daily. [facility] Immunizations Ordered Immunization Name Filled Immunization Name Date Status Comments Source SARS-COV-2 COVID-19 PFIZER VACCINE 2021-02-03 00:00:00 Completed [facility] SARS-COV-2 COVID-19 PFIZER VACCINE 2021-02-03 00:00:00 Completed [facility] SARS-COV-2 COVID-19 PFIZER VACCINE 2021-02-03 00:00:00 Completed [facility] SARS-COV-2 COVID-19 PFIZER VACCINE 2021-01-13 00:00:00 Completed [facility] SARS-COV-2 COVID-19 PFIZER VACCINE 2021-01-13 00:00:00 Completed [facility] SARS-COV-2 COVID-19 PFIZER VACCINE 2021-01-13 00:00:00 Completed [facility] Pneumococcal Polysaccharide, PPSV23 (PNEUMOVAX) 2018-03-26 00:00:00 Completed [facility] Influenza Virus Vaccine Quad IM 3+ YRS 2018-03-26 00:00:00 Completed [facility] Pneumococcal Polysaccharide, PPSV23 (PNEUMOVAX) 2018-03-26 00:00:00 Completed [facility] Influenza Virus Vaccine Quad IM 3+ YRS 2018-03-26 00:00:00 Completed [facility] Pneumococcal Polysaccharide, PPSV23 (PNEUMOVAX) 2018-03-26 00:00:00 Completed [facility] Influenza Virus Vaccine Quad IM 3+ YRS 2018-03-26 00:00:00 Completed [facility] Pneumococcal Polysaccharide, PPSV23 (PNEUMOVAX) Unknown Completed [facility] Influenza Virus Vaccine Quad IM 3+ YRS Unknown Completed [facility] SARS-COV-2 COVID-19 PFIZER VACCINE Unknown Completed [facility] SARS-COV-2 COVID-19 PFIZER VACCINE Unknown Completed [facility] Pneumococcal Polysaccharide, PPSV23 (PNEUMOVAX) Unknown Completed [facility] Influenza Virus Vaccine Quad IM 3+ YRS Unknown Completed [facility] SARS-COV-2 COVID-19 PFIZER VACCINE Unknown Completed [facility] SARS-COV-2 COVID-19 PFIZER VACCINE Unknown Completed [facility] Pneumococcal Polysaccharide, PPSV23 (PNEUMOVAX) Unknown [facility] Influenza Virus Vaccine Quad IM 3+ YRS Unknown Completed [facility] SARS-COV-2 COVID-19 PFIZER VACCINE Unknown Completed [facility] SARS-COV-2 COVID-19 PFIZER VACCINE Unknown Completed [facility] Pneumococcal Polysaccharide, PPSV23 (PNEUMOVAX) Unknown Completed [facility] Influenza Virus Vaccine Quad IM 3+ YRS Unknown Completed [facility] SARS-COV-2 COVID-19 PFIZER VACCINE Unknown Completed [facility] SARS-COV-2 COVID-19 PFIZER VACCINE Unknown Completed [facility] Pneumococcal Polysaccharide, PPSV23 (PNEUMOVAX) Unknown Completed [facility] Influenza Virus Vaccine Quad IM 3+ YRS Unknown Completed [facility] SARS-COV-2 COVID-19 PFIZER VACCINE Unknown Completed [facility] SARS-COV-2 COVID-19 PFIZER VACCINE Unknown Completed [facility] Pneumococcal Polysaccharide, PPSV23 (PNEUMOVAX) Unknown Completed [facility] Influenza Virus Vaccine Quad IM 3+ YRS Unknown Completed [facility] SARS-COV-2 COVID-19 PFIZER VACCINE Unknown Completed [facility] SARS-COV-2 COVID-19 PFIZER VACCINE Unknown Completed [facility] Pneumococcal Polysaccharide, PPSV23 (PNEUMOVAX) Unknown Completed [facility] Influenza Virus Vaccine Quad IM 3+ YRS Unknown Completed [facility] SARS-COV-2 COVID-19 PFIZER VACCINE Unknown Completed [facility] SARS-COV-2 COVID-19 PFIZER VACCINE Unknown Completed [facility] Pneumococcal Polysaccharide, PPSV23 (PNEUMOVAX) Unknown Completed [facility] Influenza Virus Vaccine Quad IM 3+ YRS Unknown Completed [facility] SARS-COV-2 COVID-19 PFIZER VACCINE Unknown Completed [facility] SARS-COV-2 COVID-19 PFIZER VACCINE Unknown Completed [facility] Vital Signs Vital Name Observation Time Observation Value Comments S ource Systolic blood pressure 2024-02-18 01:57:00 134 mm[Hg] [facility] Diastolic blood pressure 2024-02-18 01:57:00 94 mm[Hg] [facility] Body height 2024-02-18 01:57:00 162.6 cm [facility] Body weight 2024-02-18 01:57:00 79.379 kg [facility] BMI 2024-02-18 01:57:00 30.04 kg/m2 [facility] Heart rate 2024-02-18 01:53:00 110 /min [facility] Body temperature 2024-02-18 01:53:00 36.61 Debbie [facility] Respiratory rate 2024-02-18 01:53:00 24 /min [facility] Oxygen saturation in Arterial blood by Pulse oximetry 2024-02-18 01:53:00 93 /min [facility] Systolic blood pressure 2024-02-09 01:54:05 150 mm[Hg] [facility] Diastolic blood pressure 2024-02-09 01:54:05 91 mm[Hg] [facility] Heart rate 2024-02-09 01:54:05 87 /min [facility] Respiratory rate 2024-02-09 01:54:05 17 /min [facility] Oxygen saturation in Arterial blood by Pulse oximetry 2024-02-09 01:54:05 93 /min [facility] Body temperature 2024-02-09 01:45:00 36.67 Debbie [facility] Body height 2024-02-09 01:45:00 162.6 cm [facility] Body weight 2024-02-09 01:45:00 81.194 kg [facility] BMI 2024-02-09 01:45:00 30.73 kg/m2 [facility] Respiratory rate 2024-02-08 21:00:00 18 /min [facility] Oxygen saturation in Arterial blood by Pulse oximetry 2024-02-08 21:00:00 96 /min [facility] Systolic blood pressure 2024-02-08 20:27:00 164 mm[Hg] [facility] Diastolic blood pressure 2024-02-08 20:27:00 90 mm[Hg] [facility] Heart rate 2024-02-08 20:27:00 83 /min [facility] Body temperature 2024-02-08 19:12:00 36.83 Debbie [facility] Body height 2024-02-08 19:12:00 162.6 cm [facility] Body weight 2024-02-08 19:12:00 81.194 kg [facility] BMI 2024-02-08 19:12:00 30.73 kg/m2 [facility] Heart rate 2024-01-14 12:15:00 98 /min [facility] Body temperature 2024-01-14 12:15:00 36.56 Debbie [facility] Respiratory rate 2024-01-14 12:15:00 14 /min [facility] Oxygen saturation in Arterial blood by Pulse oximetry 2024-01-14 12:15:00 95 /min [facility] Systolic blood pressure 2024-01-14 12:00:00 140 mm[Hg] [facility] Diastolic blood pressure 2024-01-14 12:00:00 90 mm[Hg] [facility] [facility] Body height 2024-01-14 10:51:00 162.6 cm [facility] Body weight 2024-01-14 10:51:00 81.194 kg [facility] BMI 2024-01-14 10:51:00 30.73 kg/m2 [facility] Systolic blood pressure 2023-12-23 05:02:00 133 mm[Hg] [facility] Diastolic blood pressure 2023-12-23 05:02:00 84 mm[Hg] [facility] Heart rate 2023-12-23 05:02:00 78 /min [facility] Body temperature 2023-12-23 05:02:00 36.17 Debbie [facility] Respiratory rate 2023-12-23 05:02:00 17 /min [facility] Oxygen saturation in Arterial blood by Pulse oximetry 2023-12-23 05:02:00 91 /min [facility] Body height 2023-12-23 03:45:00 162.6 cm [facility] Body weight 2023-12-23 03:45:00 81.194 kg [facility] BMI 2023-12-23 03:45:00 30.73 kg/m2 [facility] Systolic blood pressure 2023-12-22 02:08:00 143 mm[Hg] [facility] Diastolic blood pressure 2023-12-22 02:08:00 92 mm[Hg] [facility] Heart rate 2023-12-22 02:08:00 81 /min [facility] Respiratory rate 2023-12-22 02:08:00 13 /min [facility] Oxygen saturation in Arterial blood by Pulse oximetry 2023-12-22 02:08:00 95 /min [facility] Body temperature 2023-12-22 01:33:00 36.72 Debbie [facility] Body height 2023-12-22 01:33:00 162.6 cm [facility] Body weight 2023-12-22 01:33:00 81.239 kg [facility] BMI 2023-12-22 01:33:00 30.74 kg/m2 [facility] Systolic blood pressure 2023-11-11 02:00:00 127 mm[Hg] [facility] Diastolic blood pressure 2023-11-11 02:00:00 87 mm[Hg] [facility] Heart rate 2023-11-11 02:00:00 79 /min [facility] Respiratory rate 2023-11-11 02:00:00 20 /min [facility] Oxygen saturation in Arterial blood by Pulse oximetry 2023-11-11 02:00:00 98 /min [facility] Body temperature 2023-11-11 01:31:00 36.28 Debbie [facility] Body height 2023-11-11 01:31:00 162.6 cm [facility] Body weight 2023-11-11 01:31:00 79.379 kg [facility] BMI 2023-11-11 01:31:00 30.04 kg/m2 [facility] Systolic blood pressure 2023-10-27 06:54:00 133 mm[Hg] [facility] Diastolic blood pressure 2023-10-27 06:54:00 94 mm[Hg] [facility] Heart rate 2023-10-27 06:54:00 95 /min [facility] Body temperature 2023-10-27 06:54:00 36.44 Debbie [facility] Respiratory rate 2023-10-27 06:54:00 22 /min [facility] Body height 2023-10-27 06:54:00 162.6 cm [facility] Body weight 2023-10-27 06:54:00 78.472 kg [facility] BMI 2023-10-27 06:54:00 29.70 kg/m2 [facility] Oxygen saturation in Arterial blood by Pulse oximetry 2023-10-27 06:54:00 94 /min [facility] Systolic blood pressure 2022-10-14 19:43:00 111 mm[Hg] [facility] Diastolic blood pressure 2022-10-14 19:43:00 74 mm[Hg] [facility] Heart rate 2022-10-14 19:43:00 98 /min [facility] Body temperature 2022-10-14 19:43:00 36.39 Debbie [facility] Respiratory rate 2022-10-14 19:43:00 22 /min [facility] Oxygen saturation in Arterial blood by Pulse oximetry 2022-10-14 19:43:00 94 /min [facility] Body height 2022-10-14 16:13:00 162.6 cm [facility] Body weight 2022-10-14 16:13:00 81.647 kg [facility] BMI 2022-10-14 16:13:00 30.90 kg/m2 [facility] Systolic blood pressure 2022-03-12 10:13:00 119 mm[Hg] [facility] Diastolic blood pressure 2022-03-12 10:13:00 75 mm[Hg] [facility] Heart rate 2022-03-12 10:13:00 105 /min [facility] Body temperature 2022-03-12 10:13:00 37.28 Debbie [facility] Respiratory rate 2022-03-12 10:13:00 19 /min [facility] Body height 2022-03-12 10:13:00 162.6 cm [facility] Body weight 2022-03-12 10:13:00 99.791 kg [facility] BMI 2022-03-12 10:13:00 37.76 kg/m2 [facility] Oxygen saturation in Arterial blood by Pulse oximetry 2022-03-12 10:13:00 96 /min [facility] Systolic blood pressure 2022-02-20 11:57:00 155 mm[Hg] [facility] Diastolic blood pressure 2022-02-20 11:57:00 88 mm[Hg] [facility] Heart rate 2022-02-20 11:57:00 105 /min [facility] Respiratory rate 2022-02-20 11:57:00 18 /min [facility] Oxygen saturation in Arterial blood by Pulse oximetry 2022-02-20 11:57:00 100 /min [facility] Body temperature 2022-02-20 09:25:00 37 Debbie [facility] Body height 2022-02-20 09:25:00 162.6 cm [facility] Body weight 2022-02-20 09:25:00 96.163 kg [facility] BMI 2022-02-20 09:25:00 36.39 kg/m2 [facility] Procedures Procedure Date / Time Performed Performing Clinician Source AC PANEL 20 + LACTIC ACID 2024-02-08 20:47:00 Christina Villarreal [facility] XR CHEST 1 VW 2024-02-08 19:47:00 Christina Villarreal [facility] URINALYSIS 2024-02-08 19:36:00 [facility] MAGNESIUM 2024-02-08 19:25:00 [facility] TROPONIN I 2024-02-08 19:25:00 Christina Villarreal [facility] COMP. METABOLIC PANEL ([id number]) 2024-02-08 19:25:00 Christina Villarreal [facility] ETHANOL 2024-02-08 19:25:00 [facility] CBC WITH DIFF 2024-02-08 19:25:00 Christina Villarreal [facility] N-TERMINAL PRO-BNP 2024-02-08 19:25:00 Christina Villarreal [facility] EKG-12 LEAD 2024-01-14 12:00:51 [facility] 2024-01-14 11:11:00 Jac Navarro [facility] TROPONIN I 2024-01-14 11:11:00 Jac Navarro [facility] COMP. METABOLIC PANEL ([id number]) 2024-01-14 11:11:00 Jac Navarro [facility] ETHANOL 2024-01-14 11:11:00 Jac Navarro [facility] CBC WITH DIFF 2024-01-14 11:11:00 Jac Navarro [facility] N-TERMINAL PRO-BNP 2024-01-14 11:11:00 Jac Navarro [facility] COVID-19 (ID NOW RAPID TESTING) 2024-01-14 11:11:00 Jac Navarro [facility] CONSENT/REFUSAL FOR DIAGNOSIS AND TREATMENT 2024-01-14 10:44:32 Doctor Unassigned, [place] [facility] LIPASE 2023-12-23 04:17:00 Tyler Rowe Un [facility] COMP. METABOLIC PANEL ([id number]) 2023-12-23 04:17:00 Tyler Rowe [facility] CBC WITH DIFF 2023-12-23 04:17:00 Tyler Rowe U [facility] URINALYSIS 2023-12-23 04:17:00 Tyler Rowe Un [facility] CONSENT/REFUSAL FOR DIAGNOSIS AND TREATMENT 2023-12-23 03:40:32 Doctor Unassigned, [place] [facility] CT ABDOMEN PELVIS W CONTRAST 2023-12-22 02:31:05 Melinda Maciel [facility] LIPASE 2023-12-22 01:58:00 Melinda Maciel [facility] COMP. METABOLIC PANEL ([id number]) 2023-12-22 01:58:00 Melinda Maciel [facility] ETHANOL 2023-12-22 01:58:00 Melinda Maciel [facility] CBC WITH DIFF 2023-12-22 01:58:00 Melinda Maciel [facility] PROTHROMBIN TIME / INR 2023-12-22 01:58[facility] 2023-12-22 01:58:00 Melinda [facility]iel [facility] CONSENT/REFUSAL FOR DIAGNOSIS AND TREATMENT 2023-12-22 01:19:14 Doctor Unassigned, [place] [facility] NOTICE OF PRIVACY PRACTICES 2023-11-11 01:24:24 Doctor Unassigned, [place] [facility] CONSENT/REFUSAL FOR DIAGNOSIS AND TREATMENT 2023-11-11 01:23:54 Doctor Unassigned, [place] [facility] COVID-19 (ID NOW RAPID TESTING) 2023-10-27 07:09:00 Jac Navarro [facility] NOTICE OF PRIVACY PRACTICES 2023-10-27 06:49:48 Doctor Unassigned, [place] [facility] CONSENT/REFUSAL FOR DIAGNOSIS AND TREATMENT 2023-10-27 06:47:40 Doctor Unassigned, [place] [facility] CT ABDOMEN PELVIS W CONTRAST 2022-10-14 17:33:00 Melinda Maciel [facility] XR CHEST 1 VW 2022-10-14 17:10:[address] [facility] TROPONIN I 2022-10-14 16:37:00 Melinda Maciel [facility] COMP. METABOLIC PANEL ([id number]) 2022-10-14 16:37:00 Melinda Maciel [facility] CBC WITH DIFF 2022-10-14 16:37:00 Melinda Maciel [facility] PROTHROMBIN TIME / INR 2022-10-14 16:37:00 Wali Maciel [facility] URINALYSIS 2022-10-14 16:37:00 Melinda Maciel [facility] N-TERMINAL PRO-BNP 2022-10-14 16:37:00 Singer [facility] CONSENT/REFUSAL FOR DIAGNOSIS AND TREATMENT 2022-10-14 15:56:36 Doctor Unassigned, [place] [facility] CONSENT/REFUSAL FOR DIAGNOSIS AND TREATMENT 2022-03-12 10:03:12 Doctor Unassigned, [place] [facility] XR CHEST 1 VW 2022-02-20 09:59:00 Christy Holliday [facility] LIPASE 2022-02-20 09:30:00 Christy Holliday [facility] TROPONIN I 2022-02-20 09:30:00 Christy Holliday [facility] COMP. METABOLIC PANEL ([id number]) 2022-02-20 09:30:00 Christy Holliday [facility] CBC WITH DIFF 2022-02-20 09:30:00 Christy Holliday [facility] N-TERMINAL PRO-BNP 2022-02-20 09:30:00 Christy Holliday [facility] NOTICE OF PRIVACY PRACTICES 2022-02-20 09:15:02 Doctor Unassigned, [place] [facility] CONSENT/REFUSAL FOR DIAGNOSIS AND TREATMENT 2022-02-20 09:14:47 Doctor Unassigned, [place] [facility] Encounters Start Date/Time End Date/Time Encounter Type Admission Type Attending [facility] Care Facility Care Department Encounter ID Source 2024-04-14 16:30:00 2024-04-14 16:30:00 Outpatient DARIEN LOBO [id number] [facility] 2024-04-12 11:00:00 2024-04-12 11:00:00 Outpatient MINNA ORTA [id number] [facility] 2024-04-12 11:00:00 2024-04-12 11:00:00 Outpatient WENDY BROWNLEE [id number] [facility] 2024-04-12 00:00:00 2024-04-12 00:00:00 Outpatient [facility] HALE[facility] [id number] [facility] 2024-04-05 11:30:00 2024-04-05 11:30:00 Outpatient DARIEN LOBO [id number] [facility] 2024-04-05 00:00:00 2024-04-05 00:00:00 Outpatient DARIEN LOBO MARIA ELENA [id number] [facility] 2024-03-28 00:00:00 2024-03-28 00:00:00 Outpatient DARIEN LOBO MARIA ELENA [id number] [facility] 2024-03-15 08:30:00 2024-03-15 08:30:00 Outpatient KEMWENDY MARIA ELENA BECERRA [id number] [facility] 2024-02-17 20:58:00 2024-02-17 21:44:00 Emergency X PEG CAMP [facility] [id number] [facility] 2024-02-17 20:58:00 2024-02-17 21:44:00 Emergency Peg Camp [facility] 1.2.840.114 350.1.13.10 4.2.7.2.686 [id number] [facility] 2024-02-08 20:38:00 2024-02-08 21:40:00 Emergency X DEMETRIA DAVENPORT [facility] [id number] [facility] 2024-02-08 20:38:00 2024-02-08 21:40:00 Emergency Demetria Davenport [facility] 1.2.840.114 350.1.13.10 4.2.7.2.686 [id number] [facility] 2024-02-08 14:08:00 2024-02-08 17:06:00 Emergency Christina Villarreal [facility] 1.2.840.114 350.1.13.10 4.2.7.2.686 [id number] [facility] 2024-01-14 04:46:00 2024-01-14 06:23:00 Emergency X TERESSA JAC [facility] [id number] [facility] 2024-01-14 04:46:00 2024-01-14 06:23:00 Emergency Jac Navarro [facility] 1.2.840.114 350.1.13.10 4.2.7.2.686 [id number] [facility] 2023-12-22 21:51:00 2023-12-22 23:13:00 Emergency X TYLER ROWE [facility] [id number] [facility] 2023-12-22 21:51:00 2023-12-22 23:13:00 Emergency AdeNi bocanegrablade [facility] 1.2.840.114 350.1.13.10 4.2.7.2.686 [id number] [facility] 2023-12-21 19:36:00 2023-12-21 21:52:00 Emergency X MELINDA MACIEL [facility] [id number] [facility] 2023-12-21 19:36:00 2023-12-21 21:52:00 Emergency Melinda Maciel [facility] 1.2.840.114 350.1.13.10 4.2.7.2.686 [id number] [id number] [facility] 2023-11-10 19:29:00 2023-11-10 20:14:00 Emergency X CHRISTY HOLLIDAY [facility] [id number] [facility] 2023-11-10 19:29:00 2023-11-10 20:14:00 Emergency Christy Holliday [facility] 1.2.840.114 350.1.13.10 4.2.7.2.686 [id number] [facility] 2023-10-27 00:49:00 2023-10-27 01:41:00 Emergency X JAC NAVARRO [facility] [id number] [facility] 2023-10-27 00:49:00 2023-10-27 01:41:00 Emergency Jac Navarro [facility] 1.2.840.114 350.1.13.10 4.2.7.2.686 [id number] [facility] 2023-07-15 00:00:00 2023-07-15 00:00:00 Outpatient PRELEE DARIEN MARIA ELENA BECERRA [id number] [facility] 2023-06-16 11:30:00 2023-06-16 11:30:00 Outpatient PRELEE, DARIEN BECERRA [id number] [facility] 2023-05-18 00:00:00 2023-05-18 00:00:00 Outpatient GROUPMARIA ELENA [id number] [facility] 2022-10-14 10:07:00 2022-10-14 14:39:00 Emergency X MELINDA MACIEL [facility] [id number] [facility] 2022-10-14 10:07:00 2022-10-14 14:39:00 Emergency Melinda Maciel [facility] 1.2.840.114 350.1.13.10 4.2.7.2.686 [id number] [facility] 2022-03-12 05:15:00 2022-03-12 06:41:00 Emergency X DEEPACHRISTY LOPEZ [facility] [id number] [facility] 2022-03-12 05:15:00 2022-03-12 06:41:00 Emergency Deepamorena Manueltera Olson [facility] 1.2.840.114 350.1.13.10 4.2.7.2.686 [id number] [id number] [facility] 2022-02-20 04:17:00 2022-02-20 07:16:00 Emergency X DEEPAMIOJORGE LCHRISTY [facility] [id number] [facility] 2022-02-20 04:17:2022-02-20 07:16:00 Emergency Christy Holliday [facility] 1.2.840.114 350.1.13.10 4.2.7.2.686 [id number] [facility] 2021-02-03 11:10:00 2021-02-03 11:10:00 Outpatient R EDNISE SUNG [facility] [id number] [facility] 2021-01-13 11:20:00 2021-01-13 11:20:00 Outpatient [facility] [id number] [facility] 2020-11-10 08:20:00 2020-11-10 08:20:00 Outpatient KARLEY ESTRADA [facility] [id number] [facility] Results Test Description Test Time Test Comments Results Result Co mments Source [facility] + Lactic Urgt1996-12-71 20:52:47* Test Item Value Reference Range Interpretation Comme nts PH (test code = 2) 7.39 7.35-7.45 PCO2 (test code = 5320243557) 42 35-45 PO2 (test code = 1860552375) 76 80-100 L HCO3 (test code = 1864207391) 25 22-26 BE (test code = 8222592844) -0.1 -3.0-3.0 THB (test code = 1714004218) 14.3 g/dL 13.5-18.0 %O2HB (test code = 2466481335) 85.8 % 94.0-99.0 L %COHB ART (test code = 5771453929) 9.0 % 0.0-1.5 H %METHB ART (test code = 1296748370) 0.3 % 0.4-1.5 L VOL%O2 ART (test code = 9999931169) 17.3 % 15.0-23.0 NA (test code = 9502822809) 140 mmol/L 135-145 K+ (test code = 4761412312) 4.1 mmol/L 3.5-5.0 AC CA IONZ (test code = 8652659504) 4.50 mg/dL 4.50-5.30 GLUCOSE (test code = 0175671417) 105 mg/dL 70-110 LACTIC ACID (test code = 8220889733) 2.60 mmol/L 0.50-2.20 H Lab Interpretation (test cod e = 29818-5) Abnormal [facility] [id number] 20:34:14* Test Item Value Reference Range Interpretation Comme nts TROPONIN I (test code = 0764230628) 0.008 ng/mL <=0.034 LOUISE (test code = [...] of biotin. Lab Interpretation (test code = 74186-8) Normal [facility] Mit-Vwk3792-66-01 20:31:35* Test Item Value Reference Range Interpretation Comme nts NT-proBNP (test code = 01612-8) 188 pg/mL <=125 LOUISE (test code = LOUISE) Result Indeterminate-Consid er causes of NT-proBNP elevation other than Heart failure such as acute coronary syndrome, pulmonary embolism, pulmonary hypertension, sepsis, stroke, and renal dysfunction. Lab Interpretation (test code = 41721-3) Abnormal [facility] Met[facility] Panel (22708)2024-02-08 20:21:10* Test Item Value Reference Range Interpretation Comme nts NA (test code = 5829310634) 135 mmol/L 135-145 K (test code = 4314197426) 4.5 mmol/L 3.5-5.0 CL (test code = 5103263828) 100 mmol/L 98-108 CO2 TOTAL (test code = 8613580273) 22 mmol/L 23-31 L AGAP (test code = 0946776949) 13 2-16 BUN (test code = 2052636301) 8 mg/dL 7-23 GLUCOSE (test code = 9329680942) 97 mg/dL 70-110 CREATININE (test code = 2160-0) 0.65 mg/dL 0.60-1.25 TOTAL BILI (test code = 0089499850) 0.4 mg/dL 0.1-1.1 CALCIUM (test code = 9826618837) 9.4 mg/dL 8.6-10.6 T PROTEIN (test code = 9592705876) 8.2 g/dL 6.3-8.2 ALBUMIN (test code = 3420867698) 4.7 g/dL 3.5-5.0 ALK PHOS (test code = 9626084856) 76 U/L 34-122 ALTv (test code = 1742-6) 33 U/L 5-50 AST(SGOT) (test code = 7883914675) 54 U/L 13-40 H eGFR (test code = 42624-2) 111.3 mL/min/1.73m2 CKD-EPI eGFR (2020). Assuming creatinine has been stable day-to-day for at least three months, the eGFR indicates Category G1 (>= 90 mL/min/1.73 m2) Lab Interpretation (test code = 48052-5) Abnormal [facility] Hospital[facility]esium2024-04-01 20:21:10* Test Item Value Reference Range Interpretation Comme nts MAGNESIUM (test code = 7662722426) 2.1 mg/dL 1.7-2.4 Lab Interpretation (test cod e = 98085-1) Normal [facility] 1 [id number] 20:07:21EXAM: XR CHEST 1 VW COMPARISON: 01/14/2024 HISTORY: sob FINDINGS: Lungs: Slightly hyperexpanded lungswith subtle progression of interstitialprominence. Trace pleural effusions could be present. Heart/Mediastinum: Stable cardiomegaly. Bones and soft tissues: No osseous abnormality is visualized.[facility] Cbc with [id number] 20:04:26* Test Item Value Reference Range Interpretation [...] 33.8 g/dL 31.2-35.0 RDW-SD (test code = 14343-1) 50.5 fL 38.5-51.6 RDW-CV (test code = 788-0) 14.3 % 12.1-15.4 PLT (test code = 777-3) 206 150-328 MPV (test code = 82439-5) 9.1 fL 9.8-13.0 L NRBC/100 WBC (test code = 2255175536) 0.0 0.0-10.0 NRBC x10^3 (test code = 6086492911) See_Comment [Automated messa ge] The system which generated this result transmitted reference range: 10*3/?L. The reference range was not used to interpret this result as normal/abnormal. GRAN MAT (NEUT) % (test code = 770-8) 81.0 % IMM GRAN % (test code = 0576601716) 1.20 % LYMPH % (test code = 736-9) 10.9 % MONO % (test code = 5905-5) 6.8 % EOS % (test code = 713-8) 0.0 % BASO % (test code = 706-2) 0.1 % GRAN MAT x10^3(ANC) (test code = 0642851435) 9.31 10*3/uL 1.99-6.95 H IMM GRAN x10^3 (test code = 2632813212) 0.14 10*3/uL 0.00-0.06 H LYMPH x10^3 (test code = 731-0) 1.25 10*3/uL 1.09-3.23 MONO x10^3 (test code = 742-7) 0.78 10*3/uL 0.36-1.02 EOS x10^3 (test code = 711-2) 0.06-0.53 L BASO x10^3 (test code = 704-7) 0.01-0.09 Lab Interpretation (test code = 81777-6) Abnormal [facility] MET[facility]OLIC PANEL (40938)2023-12-23 04:53:26* Test Item Value Reference Range Interpretation Comme nts NA (test code = 5903554869) 135 mmol/L 135-145 K (test code = 9378385836) 3.2 mmol/L 3.5-5.0 L CL (test code = 2760792699) 104 mmol/L 98-108 CO2 TOTAL (test code = 1746180775) 23 mmol/L 23-31 AGAP (test code = 3074179497) 8 2-16 BUN (test code = 3101883519) 11 mg/dL 7-23 GLUCOSE (test code = 5793865136) 82 mg/dL 70-110 CREATININE (test code = 2160-0) 0.64 mg/dL 0.60-1.25 TOTAL BILI (test code = 2948550128) 0.5 mg/dL 0.1-1.1 CALCIUM (test code = 2106286539) 8.8 mg/dL 8.6-10.6 T PROTEIN (test code = 9329167844) 6.7 g/dL 6.3-8.2 ALBUMIN (test code = 6903793405) 4.1 g/dL 3.5-5.0 ALK PHOS (test code = 0853270446) 46 U/L 34-122 ALTv (test code = 1742-6) 21 U/L 5-50 AST(SGOT) (test code = 9352516617) 43 U/L 13-40 H eGFR (test code = 88642-6) 111.8 mL/min/1.73m2 CKD-EPI eGFR (2020). Assuming creatinine has been stable day-to-day for at least three months, the eGFR indicates Category G1 (>= 90 mL/min/1.73 m2) Lab Interpretation (test code = 06596-3) Abnormal [facility]2024-02-14 04:53:26* Test Item Value Reference Range Interpretation Comme nts LIPASE (test code = 6437425607) 105 U/L 0-220 Lab Interpretation (test cod e = 49938-2) Normal [facility] WITH [id number] 04:34:24* Test Item Value Reference Range Interpretation [...] 33.0 g/dL 31.2-35.0 RDW-SD (test code = 02304-9) 50.9 fL 38.5-51.6 RDW-CV (test code = 788-0) 13.7 % 12.1-15.4 PLT (test code = 777-3) 232 150-328 MPV (test code = 59721-0) 8.7 fL 9.8-13.0 L NRBC/100 WBC (test code = 5695639818) 0.0 0.0-10.0 NRBC x10^3 (test code = 6887933971) See_Comment [Automated messa ge] The system which generated this result transmitted reference range: 10*3/?L. The reference range was not used to interpret this result as normal/abnormal. GRAN MAT (NEUT) % (test code = 770-8) 58.8 % IMM GRAN % (test code = 4473150839) 0.90 % LYMPH % (test code = 736-9) 27.8 % MONO % (test code = 5905-5) 10.5 % EOS % (test code = 713-8) 1.3 % BASO % (test code = 706-2) 0.7 % GRAN MAT x10^3(ANC) (test code = 6323971209) 5.68 10*3/uL 1.99-6.95 IMM GRAN x10^3 (test code = 2670090328) 0.09 10*3/uL 0.00-0.06 H LYMPH x10^3 (test code = 731-0) 2.69 10*3/uL 1.09-3.23 MONO x10^3 (test code = 742-7) 1.02 10*3/uL 0.36-1.02 EOS x10^3 (test code = 711-2) 0.13 10*3/uL 0.06-0.53 BASO x10^3 (test code = 704-7) 0.07 10*3/uL 0.01-0.09 Lab Interpretation (test code = 07601-7) [facility] [id number] 03:32:43Exam: CT Abdomen and Pelvis With Contrast, [...] osseous abnormality.Soft tissues: Small fat-containing inguinal hernias.[facility]24-[facility] 02:32:24* Test Item Value Reference Range Interpretation Comme nts ALCOHOL (test code = 3091422987) 117 mg/dL LOUISE (test code = LOUISE) <10 [id number] Toxic>100 Depression of EMERGENCY ROOM ORDERLY>400 [facility]orted [facility] ([id number])2023-12-22 02:31:43* Test Item Value Reference Range Interpretation Comme nts NA (test code = 3394082038) 133 mmol/L 135-145 L K (test code = 9596433978) 3.3 mmol/L 3.5-5.0 L CL (test code = 2924763263) 102 mmol/L 98-108 CO2 TOTAL (test code = 6061143539) 25 mmol/L 23-31 AGAP (test code = 6945771019) 6 2-16 BUN (test code = 9342064800) 11 mg/dL 7-23 GLUCOSE (test code = 6922246773) 75 mg/dL 70-110 CREATININE (test code = 8560778624) 0.51 mg/dL 0.60-1.25 L TOTAL BILI (test code = 4473842296) 0.5 mg/dL 0.1-1.1 CALCIUM (test code = 7229545458) 8.9 mg/dL 8.6-10.6 T PROTEIN (test code = 6034702207) 7.2 g/dL 6.3-8.2 ALBUMIN (test code = 5637337127) 4.5 g/dL 3.5-5.0 ALK PHOS (test code = 3119725056) 46 U/L 34-122 ALTv (test code = 1742-6) 15 U/L 5-50 AST(SGOT) (test code = 6544191065) 24 U/L 13-40 eGFR (test code = 43468-7) 119.7 mL/min/1.73m2 CKD-EPI eGFR (2020). Assuming creatinine has been stable day-to-day for at least three months, the eGFR indicates Category G1 (>= 90 mL/min/1.73 m2) Lab Interpretation (test code = 44192-9) [facility] 02:31:43* Test Item Value Reference Range Interpretation Comme nts LIPASE (test code = 2956702295) 121 U/L 0-220 Lab Interpretation (test cod e = 16218-2) Normal [facility] HospitalProthrombin Time / HDG5465-93-84 02:21:02* Test Item Value Reference Range Interpretation Comme [facility] PROTIME PATIENT (test code = 5964-2) 10.5 10.1-12.6 INR (test code = 6301-6) 0.9 Normal INR <1.1; Warfarin Therapeutic range 2.0 to 3.0 or 2.5 to 3.5, depending upon the indications. Lab Interpretation (test code = 90444-4) Normal [facility] with Dbjw0823-99-46 02:14:04* Test Item Value Reference Range Interpretation [...] 34.0 g/dL 31.2-35.0 RDW-SD (test code = 71657-2) 49.1 fL 38.5-51.6 RDW-CV (test code = 788-0) 13.5 % 12.1-15.4 PLT (test code = 777-3) 260 150-328 MPV (test code = 90649-0) 8.7 fL 9.8-13.0 L NRBC/100 WBC (test code = 9482148266) 0.0 0.0-10.0 NRBC x10^3 (test code = 5262258321) See_Comment [Automated messa ge] The system which generated this result transmitted reference range: 10*3/?L. The reference range was not used to interpret this result as normal/abnormal. GRAN MAT (NEUT) % (test code = 770-8) 64.3 % IMM GRAN % (test code = 1839587895) 0.90 % LYMPH % (test code = 736-9) 24.2 % MONO % (test code = 5905-5) 9.1 % EOS % (test code = 713-8) 0.7 % BASO % (test code = 706-2) 0.8 % GRAN MAT x10^3(ANC) (test code = 7748089984) 8.73 10*3/uL 1.99-6.95 H IMM GRAN x10^3 (test code = 6881093788) 0.12 10*3/uL 0.00-0.06 H LYMPH x10^3 (test code = 731-0) 3.28 10*3/uL 1.09-3.23 H MONO x10^3 (test code = 742-7) 1.23 10*3/uL 0.36-1.02 H EOS x10^3 (test code = 711-2) 0.10 10*3/uL 0.06-0.53 BASO x10^3 (test code = 704-7) 0.11 10*3/uL 0.01-0.09 H Lab Interpretation (test code = 70601-2) Abnormal [facility] HospitalTROPONIN B0591-29-71 10:16:22* Test Item Value Reference Range Interpretation Comments TROPONIN I (test code = 0340063140) 0.007 ng/mL See_Comment [Automated message] The system [...] of biotin. Lab Interpretation (test code = 20913-3) Normal [facility] HospitalN-TERMINAL KRT-WKU8568-41-14 10:13:01* Test Item Value Reference Range Interpretation Comme nts NT-proBNP (test code = 6659627198) 52 pg/mL See_Comment [Automated message] The system which generated this result transmitted reference range: <=125. The reference range was not used to interpret this result as normal/abnormal. LOUISE (test code = LOUISE) Biotin has been reported to cause a negative bias, interpret results relative to patient's use of biotin. Lab Interpretation (test code = 18819-3) Normal [facility]. METABOLIC PANEL (04098)2022-02-20 10:04:02* Test Item Value Reference Range Interpretation Comme nts NA (test code = 3840348227) 137 mmol/L 135-145 K (test code = 3898289835) 3.6 mmol/L 3.5-5.0 CL (test code = 5724406885) 99 mmol/L 98-108 CO2 TOTAL (test code = 0387186786) 25 mmol/L 23-31 AGAP (test code = 1921247874) 2-16 BUN (test code = 9129981422) 6 mg/dL 7-23 L GLUCOSE (test code = 9020890713) 88 mg/dL 70-110 CREATININE (test code = 8931338222) 0.55 mg/dL 0.60-1.25 L TOTAL BILI (test code = 6016258961) 0.8 mg/dL 0.1-1.1 CALCIUM (test code = 0569333129) 8.9 mg/dL 8.6-10.6 T PROTEIN (test code = 8263036570) 7.5 g/dL 6.3-8.2 ALBUMIN (test code = 4303731166) 4.8 g/dL 3.5-5.0 ALK PHOS (test code = 1085928450) 113 U/L 34-122 ALTv (test code = 1742-6) 84 U/L 5-50 H AST(SGOT) (test code = 2816338077) 107 U/L 13-40 H eGFR (test code = 4691652320) mL/min/1.73m2 LOUISE (test code = LOUISE) Association [...] imaging tests). Lab Interpretation (test code = 63270-0) Abnormal [facility] HospitalLIP[facility], KQTYW7655-25-07 10:03:21* Test Item Value Reference Range Interpretation Comme [facility] LIPASE (test code = 5725920227) 193 U/L 0-220 Lab Interpretation (test cod e = 06928-3) Normal [facility] HospitalCBC WITH ZHAX7391-60-56 09:39:17* Test Item Value Reference Range Interpretation Comme nts WBC (test code = 6690-2) See_Comment [Automated Neohapsis] The system which generated this result transmitted reference range: 4.20 - 10.70 10*3/?L. The reference range was not used to interpret this result as normal/abnormal. RBC (test code = 789-8) See_Comment [Automated Neohapsis] The system which generated this result transmitted [...] g/dL 31.2-35.0 H RDW-SD (test code = 94779-1) 44.4 fL 38.5-51.6 RDW-CV (test code = 788-0) 11.9 % 12.1-15.4 L PLT (test code = 777-3) See_Comment [Automated mySugra ge] The system which generated this result transmitted reference range: 150 - 328 10*3/?L. The reference range was not used to interpret this result as normal/abnormal. MPV (test code = 50214-8) 9.2 fL 9.8-13.0 L NRBC/100 WBC (test code = 2158588913) See_Comment [Automated Barspace ssage] The system which generated this result transmitted reference range: 0.0 - 10.0 /100 WBCs. The reference range was not used to interpret this result as normal/abnormal. NRBC x10^3 (test code = 8166329546) <0.01 See_Comment [Automated mySugra ge] The system which generated this result transmitted reference range: 10*3/?L. The reference range was not used to interpret this result as normal/abnormal. GRAN MAT (NEUT) % (test code = 770-8) 69.9 % IMM GRAN % (test code = 7718497129) 1.50 % LYMPH % (test code = 736-9) 18.9 % MONO % (test code = 5905-5) 7.0 % EOS % (test code = 713-8) 1.9 % BASO % (test code = 706-2) 0.8 % GRAN MAT x10^3(ANC) (test code = 6282304967) 7.15 10*3/uL 1.99-6.95 H IMM GRAN x10^3 (test code = 6248468676) 0.15 10*3/uL 0.00-0.06 H LYMPH x10^3 (test code = 731-0) 1.93 10*3/uL 1.09-3.23 MONO x10^3 (test code = 742-7) 0.72 10*3/uL 0.36-1.02 EOS x10^3 (test code = 711-2) 0.19 10*3/uL 0.06-0.53 BASO x10^3 (test code = 704-7) 0.08 10*3/uL 0.01-0.09 Lab Interpretation (test code = 98777-1) Abnormal [facility] Notes Date/Time Note Provider Source 2024-02-17 21:43:52 7265-26-80Y87:43:52F ormatting of this note might be different from the original.No answer in lobby. 90280-5Fwqjdkmhc department EnseOW9276-74-29W12:44:07[facility] NoteTXT1.2.840.077779.1.13.104.2.7 .2.280595|[id number] for patient uloo70862-3YroyYQXDBQFMJCXQceboweq d C-CDA narrative giuv358723184Djoahm J Hoot RN[address]vd[address]Gal[place]on[place]TX[address] 86RTLZPLFRTJHGXMSCSTPJMV6835-37-56 T21:44:071.2.840.630109.1.72.3.15| 1.2.840.195787.1.13.104.2.7.2.7278 79_[id number] Angy Turner RN [facility] 2024-02-17 21:42:10 4940-24-26B67:42:10F ormatting of this note might be different from the original.Pt's blood pressure cuff and pulse ox found lying on chair. Called for patient in lobby 2 times, no answer. No one in lobby. 82473-3Zicyhghop department EjtvJG5958-27-00B93:44:10[facility] NoteTXT1.2.840.563480.1.13.104.2.7 .2.122877|[id number] for patient yhzo11104-9HezdFMOWQXQHRULIhkidkqi d C-CDA narrative hvrq700737765EljeuSierra [address]TXTX[address] 75DNGIGEAQMRPGGTYJAORMWB4546-43-98 T21:44:101.2.840.018242.1.72.3.15| 1.2.840.032218.1.13.104.2.7.2.7278 79_[id number] Sierra Samaniego RN [facility] 2024-02-17 21:41:09 1367-69-70L11:41:09F ormatting of this note might be different from the original.Pt not in lobby or in room. No answer in lobby. 06895-0Pjdbjozao department HdwzEL6435-35-63J33:41:40[facility] NoteTXT1.2.840.750557.1.13.104.2.7 .2.654255|1988697465OUMyxmpxugp for patient lokb00910-6EcddBXKVRRAEMBYXdknmdnk d C-CDA narrative textUT[address]TXTX77555775 25VHBSQKPVNCAJYGOKAZYFQI4456-05-96 T21:41:401.2.840.788866.1.72.3.15| 1.2.840.319061.1.13.104.2.7.2.7278 79_[id number] [facility] 2024-02-17 21:14:29 6151-31-77U65:14:29F ormatting of this note might be different from the original.Pt not in FT01-01 and no answer in lobby. 09674-2Wspvfryta department JgquDJ6677-25-63Y64:15:32[facility] NoteTXT1.2.840.222379.1.13.104.2.7 .2.636689|[id number] for patient ihbo95701-9TdnkACZQHZEDLMVIgiqgkrf d C-CDA narrative text[address]TXTX[address] 66TMUSCKLPLJXUOHUOIAROEY6556-70-81 T21:15:321.2.840.200127.1.72.3.15| 1.2.840.567399.1.13.104.2.7.2.7278 79_[id number] [facility] 2024-02-17 20:48:50 6906-29-91X49:48:50F ormatting of this note might be different from the original.Pt arrives ambulatory to ED c/o SOB, right upper abdominal pain, and left leg and hip pain. Pt states that he has been on prednisone for about 5 yrs which had given him osteoporosis which is causing his leg pain. Reports hx of COPD, o2 is generally @ 91 he says. 62686-2Dudalgjwl department Triage cfcvGO3076-88-49J76:53:54[facility] department Triage noteTXT1.2.840.833001.1.13.104.2.7 .2.930780|[id number] for patient vqnj90949-6Uokpobjzn department NoteLNNARRATIVEFormatted C-CDA narrative mhmh418518322Sbitzoyee [address]EpajJghedmepwTkauohzirCSZZ48246931 50IAELRLRADYQMKZHMHHMFSH5532-27-75 T20:53:541.2.840.734265.1.72.3.15| 1.2.840.159786.1.13.104.2.7.2.7278 79_[id number] Leah Lizama RN [facility] 2024-02-08 21:37:56 5739-54-13J63:37:56F ormatting of this note might be different from the original.Pt left AMA 87977-0Iqceopzoo department UkweBJ0694-59-23T75:38:11[facility] NoteTXT1.2.840.129803.1.13.104.2.7 .2.616946|5806467319YXRwwjyqgyu for patient yzxe65911-7KrzqWNOTPLDMJANKptqhbld d C-CDA narrative qovu237203107CqoreKylie Foster RN[address]vdGalvestonGalvestonTXTX[address] 08LYHBWMLFIDWMQPCSSJUGIL5436-92-06 T21:38:111.2.840.564984.1.72.3.15| 1.2.840.350760.1.13.104.2.7.2.7278 79_[id number] Kylie Foster RN [facility] 2024-02-08 21:32:00 3879-79-14G22:32:00F ormatting of this note might be different [...] ambulatory with steady [place], [place] 89071-8Oaubsvvhy department EtdvHY2810-28-49R62:40:32[facility] NoteTXT1.2.840.189023.1.13.104.2.7 .2.982885|9199601963XQNimqmcnlq for patient elca68448-5XrpaTOHMAQYVZVDMyrpsoxl d C-CDA narrative [address] 36LLWJJVCEWBGIPATIJNEJEE9336-83-71 T21:40:321.2.840.433067.1.72.3.15| 1.2.840.156127.1.13.104.2.7.2.7278 79_[id number] [facility] 2024-02-08 20:54:38 1844-08-19L77:54:38F ormatting of this note might be different from the original.Pt states he uses O2 at home, portable O2 is broken [address]17-7Rlfkvzcxm[address] PfckBU3849-72-27D22:55:13[facility] NoteTXT1.2.840.987100.1.13.104.2.7 .2.416878|1135491350IVUajfxabdd for patient jrnl98480-6SvcwLMCBPBSRHGVZccgqxke d C-CDA narrative [address]TXTX[address] 85FWOTYLKBXSHNLWQBRCCWFW3654-09-13 T20:55:131.2.840.751629.1.72.3.15| 1.2.840.471185.1.13.104.2.7.2.7278 79_[id number] [facility] 2024-02-08 20:51:11 6609-69-40H17:51:11F ormatting of this note might be different from the original.Pt ambulates with cane 46390-1Cehkapiro department DdmtHV6167-71-10V99:51:26[facility] NoteTXT1.2.840.676470.1.13.104.2.7 .2.229232|3328053526QUUuhgkppca for patient krkh27911-8GfhcBAPDHMBEFXFVckcbqet d C-CDA narrative text[address]TXTX[address]75 45HTNBKFUCVHXJTVUOQKLYNT8111-44-79 T20:51:261.2.840.817449.1.72.3.15| 1.2.840.510406.1.13.104.2.7.2.7278 79_[id number] [facility] 2024-02-08 20:43:13 5390-54-12S01:43:13F ormatting of this note might be different from the original.CC: Pt arrives SOB after leaving [place] earlier in the shift. He reports he [...] 3 BC powders and drank 3 beers." 39203-6Xpichlokz department Triage ytfaGW6308-21-73W85:48:36[facility] Triage noteTXT1.2.840.333427.1.13.104.2.7 .2.628716|8542190238UQRwbdnhrla for patient rlbf16429-9Tzzfhpagz department NoteLNNARRATIVEFormatted C-CDA narrative rwzs893306768Zibauk R Shehadeh RNUT[address]TXTX[address] 88EGFGVLXXKINPYBGXOMJXTX5576-29-57 T20:48:361.2.840.942378.1.72.3.15| 1.2.840.785440.1.13.104.2.7.2.7278 79_[id number] Leah King RN [facility] 2024-02-08 17:04:05 6169-95-67S43:04:05F ormatting of this note might be different [...] of the department with a steady gait. 12104-2Ufgdxrqdy department RduxKK5115-12-26D16:05:22[facility] NoteTXT1.2.840.729230.1.13.104.2.7 .2.588145|7790708656GBZziezjcjr for patient uiii85285-7EpluBUXKNMNYBBFKekjjcet d C-CDA narrative ibxg433406740Ssed M Hayes RN[address]vdGalvestonGalvestonTXTX[address] 28KXJVJSHHWURWLWMVFJIRMG7081-94-57 T17:05:221.2.840.574857.1.72.3.15| 1.2.840.734689.1.13.104.2.7.2.7278 79_[id number] Allison Zhang RN [facility] 2024-02-08 14:23:02 8762-70-71X89:23:02F ormatting of this note might be different from the original.Pt ambulates with a cane 70743-9Rykemqqee department PzsrVC9727-51-66R68:23:12[facility] department NoteTXT1.2.840.192056.1.13.104.2.7 .2.264031|6253649105UKKdpdvjacj for patient jnuq57185-7KmvgEMBGRPXKZEDGhgicjfr d C-CDA narrative rnxv016511842ScfdpKylie Foster RN[address]TXTX[address] 65DQTQLFLJPTPGQDBHYZKWWO9684-07-54 T14:23:121.2.840.253543.1.72.3.15| 1.2.840.326418.1.13.104.2.7.2.7278 79_[id number] Kylie Foster RN [facility] 2024-02-08 14:13:15 2589-90-38Q56:13:15F ormatting of this note might be different [...] only thing that helps." Face is flushed. 07222-8Qjkcarzud department Triage gixdIS9855-06-49J59:17:26[facility] Triage noteTXT1.2.840.255265.1.13.104.2.7 .2.317801|7100718954WRNhhmyddcc for patient ntpk53678-3Bxpalirvl department NoteLNNARRATIVEFormatted C-CDA narrative jqnk523707634Yebsvdx Fief RNUT[address]TXTX[address] 30GWACAWWWAKVBZEJDPAPVLE4967-91-04 T14:17:261.2.840.589440.1.72.3.15| 1.2.840.571026.1.13.104.2.7.2.7278 79_[id number] Hali Aviles RN [facility] 2024-01-14 06:16:25 5882-18-44Y60:16:25F ormatting of this note might be different [...] w/d, pt leaving in no apparent distress, 12150-3Xuwaulnzx department IxewJB5732-04-34M85:17:20[facility] NoteTXT1.2.840.196963.1.13.104.2.7 .2.116460|8637748494NEWsdvtxrpx for patient lvfg76719-0KvgzJEVMOYFPQBIRcohtmmv d C-CDA narrative text[address] BhivMwerfswxjFuambavqeRKWT84333177 44EBTJSJKQSDARUBMUBLNVMP7843-97-17 T06:17:201.2.840.421670.1.72.3.15| 1.2.840.651500.1.13.104.2.7.2.7278 79_[id number] [facility] 2024-01-14 04:49:43 9609-06-58M83:49:43F ormatting of this note might be different [...] ext without difficulty, amb with steady gait 11717-7Mzhzqveag department Triage xggaVA9090-26-57C44:55:49[facility] Triage noteTXT1.2.840.743091.1.13.104.2.7 .2.180682|5618727334WHLdgyanvzx for patient pxku16628-4Yvglvomtg department NoteLNNARRATIVEFormatted C-CDA narrative qafx181218462Qugjkh R Shehadeh RN[address] BdjhRdichdtwcQkodlupvnSMUJ49799061 08BTQMGVGQIXQMKTTYDESVFE0941-48-01 T04:55:491.2.840.251244.1.72.3.15| 1.2.840.632028.1.13.104.2.7.2.7278 79_[id number] Leah King RN [facility] 2024-01-14 04:43:00 6930-94-02D74:43:00A ssociated Order(s): EKG-12 Lead ROUTINE ONCEPre-Procedure Diagnose(s): Chest pain, unspecified typePost-Procedure Diagnose(s): Chest pain, unspecified type [facility] Emergency Department NotePatient Name: Randy Edwards of : 1970 53 year old maleTreatment Room: TX1/DF8Nwoltom Record Number: [id number] Care Physician: Adrianna King Escorted by: Family [5]Mode of Arrival: Personal means [1]EMS Treatment 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 METABOLIC PANEL (73414) - AbnormalResult Value Ref RangeNA 138 135 [...] 49 (*) 13 - 40 U/LeGFR 93.3 mL/min/1.08d8BIH WITH DIFF - AbnormalWBC 11.59 (*) 4.20 [...] 220 U/LCOVID-19 (ID NOW RAPID TESTING) - FkjcssTGBP-GuH-2 Rapid ID NOW Not Detected Not DetectedETHANOLALCOHOL 62 mg/dLEKG:If EKG completed, see Procedure Note.Orders and Treatments:Orders Placed This EncounterProcedures XR CHEST 1 VW TROPONIN I COMP. METABOLIC PANEL (08028) LIPASE, SERUM CBC WITH DIFF N-Terminal Pro-Bnp Ethanol COVID-19 (ID NOW TESTING) Lab Only COVID Interpretation O2 Per ProtocolOrders Placed This EncounterMedications morpHINE (4 mg/mL) injection 4 mg ondansetron (ZOFRAN (PF)) injection 4 mg ipratropium-albuteroL (DUONEB) 0.5 mg-3 mg(2.5 mg base)/3 mL nebulizer solution 3 mLFirst Provider Eval:ED EventsDate/Time Event User Bgexojff23/07/24 0510 Medical Screening Begins JAC NAVARRO MD --01/14/24 0510 First Provider Evaluation JAC NAVARRO MD --ED COURSEDiagnosis/Impression as of 01/14/24 0605Chest pain, unspecified typeBronchitisProcedures:EKG-12 Lead ROUTINE ONCEDate/Time: 01/14/2024 5:24 AMPerformed by: Jac Navarro MDAuthorized by: Jac Navarro MDECG interpreted by ED Physician in the absence of a dyed yarn operator: yesPrevious ECG:Previous ECG: Compared to currentSimilarity: [...] on fileFollow-up:Electronically signed by:Jac Navarro MD01/14/24 0600 68352-9Rkdwxowvu Emergency department PoquFW6810-04-02L81:00:50[facility] department NoteTXT1.2.840.042978.1.13.104.2.7 .2.538985|[id number] for patient knee79295-7Ssotvhycn[address] [place] [address] NoteLNNARRATIVEFormatted C-CDA narrative textUT[address] CvdwOdoeytanyOmonzlvjoUGPE88232740 24PZETJSXWAUCDYCVLPBQKAR6704-72-07 T06:00:501.2.840.958925.1.72.3.15| 1.2.840.775837.1.13.104.2.7.2.7278 79_[id number] [facility] 2023-12-22 23:12:16 2510-98-94S42:12:16F ormatting of this note might be different [...] with steady gait, in no apparent distress, 19658-8Xcmcqitkz department XoekAJ7934-14-94G74:13:50[facility] NoteTXT1.2.840.926719.1.13.104.2.7 .2.949478|7775882003FULhjrfbvbj for patient qsdp22366-1WrgtMREEFJJCJRRNiuyamss d C-CDA narrative dfna766667891Vojbn E Gómez MACHUCA[address]vestonTXTX[address] 34OGYVJSFGNBUSTSHLJETHWN4159-33-94 T23:13:501.2.840.917467.1.72.3.15| 1.2.840.013538.1.13.104.2.7.2.7278 79_[id number] Mary Machado Gómez MACHUCA [facility] 2023-12-22 21:41:55 7157-15-25W18:41:55F ormatting of this note might be different from the original.Pt arrives ambulatory to ED reporting bleeding with stools and 10/10 abdominal pain. States he was here last night but had to leave before receiving results d/t having to work. Says the pain became worse so he came back in. 83399-8Wvqqpwmrr department Triage kyebLG8320-99-29F18:48:52[facility] Triage noteTXT1.2.840.035434.1.13.104.2.7 .2.303019|8587139652RWHfmewamzm for patient pdwr16544-3Tvvgcmmun department NoteLNNARRATIVEFormatted C-CDA narrative yoxh116089000Hyjehn L Williams RN[address]TXTX[address] 50SCDUDVTPJAYBCBGBNIGQCX2199-99-06 T21:48:521.2.840.912778.1.72.3.15| 1.2.840.188114.1.13.104.2.7.2.7278 79_[id number] Leah Lizama RN [facility] 2023-12-21 21:31:00 5202-72-65X81:31:00F ormatting of this note might be different [...] with steady gait, appears in no distress. 01298-4Orfkioydm department DmvhFE0090-98-94X74:38:39[facility] NoteTXT1.2.840.493521.1.13.104.2.7 .2.135986|[id number] for patient bfne37605-9DhaxTWBJWETJFMJBwehhxxd d C-CDA narrative gcgk007977685DjduqMary Magaña RN[address]vdGalvestonGalvestonTXTX[address] 51XJHCITJRVXRXREBBSZVYOC3157-69-89 T21:38:391.2.840.688455.1.72.3.15| 1.2.840.815432.1.13.104.2.7.2.7278 79_[id number] Mary Magaña RN [facility] 2023-12-21 21:30:00 8557-80-12A52:30:00F ormatting of this note might be different from the original.Pt wished to leave AMA. Pt states " yall were wonderful but 3am come real early." 41539-1Nzxiajgem department VkxyCU5713-86-44O58:36:58[facility] NoteTXT1.2.840.119791.1.13.104.2.7 .2.213378|[id number] for patient lyom90908-8NbidDLJBQNXKHFSEmydxret d C-CDA narrative textUT[id number] 49HBAJDIYPWMVHYVHJAQVJEB0167-33-94 T21:36:581.2.840.498721.1.72.3.15| 1.2.840.612172.1.13.104.2.7.2.7278 [id number] [facility] 2023-12-21 21:26:22 5984-33-57R12:26:22F ormatting of this note might be different from the original.Pt asking to go outside and smoke, wants to go home and eat. Pt educated on risks of leaving AMA. Provider informed pt is in pain. 35787-3Wohwwvkci department OvgdBP3489-80-83Q70:33:35[facility] NoteTXT1.2.840.718569.1.13.104.2.7 .2.420302|[id number] for patient ludf13423-0EspxLLZYWXLFUBGAqcayhkn d C-CDA narrative [id number] R Shehadeh RNUT[address] [id number] 01WFPGGXLCBHMTDVTVMVSKUM9436-54-27 T21:33:351.2.840.274876.1.72.3.15| 1.2.840.984532.1.13.104.2.7.2.7278 [id number] Leah King RN [facility] 2023-12-21 19:31:50 7329-06-41Z05:31:50F ormatting of this note might be different from the original.Pt arrived ambulatory with complaints of bright red rectal bleeding and generalized abdominal pain this afternoon. Pt states his stool was normal consistency but continuous bright red blood. Denies this happening before.Pt is an alcoholic, had 2 beer [employer]. States he vomits all the time but not something new today. 76269-3Bmhpaikad department Triage unwsFH7249-02-29C76:33:28[facility] department Triage noteTXT1.2.840.310131.1.13.104.2.7 .2.396904|[id number] for patient ovgm24105-8Ulyzfymxf department NoteLNNARRATIVEFormatted C-CDA narrative [id number] D Roman RN[id number] 56FZRYKKNUQWADHMXGADARRG2018-71-90 T19:33:281.2.840.235476.1.72.3.15| 1.2.840.872313.1.13.104.2.7.2.7278 [id number] Gabi Esqueda RN [facility] 2023-11-10 20:13:39 5742-85-69D93:13:39F ormatting of this note might be different from the original.Pt requesting to leave AMA. ERP notified. Pt counseled to remain, risks of leaving AMA including discussed with pt. Pt continued to decline further ER evaluation at this time. AMA papers signed, witnessed, and placed on patient's chart. Pt left ambulatory. VS stable, no ataxia noted, GCS 15, A&Ox4. 02442-9Hmbhkoejy department QofkYE3441-10-07G38:13:52[facility] department NoteTXT1.2.840.799619.1.13.104.2.7 .2.079477|[id number] for patient iqzh58747-9DinbRGLPXWPIRANThvpdpqq d C-CDA narrative [id number] R Goodrich RN[id number] 50VZBGIYPLRMCLSAVTGHNTKV1299-28-92 T20:13:521.2.840.322994.1.72.3.15| 1.2.840.156108.1.13.104.2.7.2.7278 [id number] Briseida Medrano RN [facility] 2023-11-10 19:30:29 1256-70-36E65:30:29F ormatting of this note might be different from the original.Patient arrived to ED c/o SOB and COPD exacerbation. Symptoms started this morning. Patient wears 3L NC at home. Patient is a smoker. Patient states having the chills, diarrhea, and vomiting. States having sharp pains in chest from coughing. 37233-4Cczmuqnvf department Triage dsvmML7846-24-86H38:35:27[facility] Triage noteTXT1.2.840.727351.1.13.104.2.7 .2.440249|[id number] for patient zcsj48714-5Axjndezgj department NoteLNNARRATIVEFormatted C-CDA narrative [id number]-Eqmlw McInnis RNUT[address] Pk[id number] 49PBIAYXDWBVBKMQOITNVVBG5425-26-74 T19:35:271.2.840.999100.1.72.3.15| 1.2.840.928861.1.13.104.2.7.2.7278 [id number] Sreedhar Gomez RN [facility]
[2024-04-25] MEDS ORDERED: THIAMINE 200 MG/2 ML INJ ONE (02:37)
[2024-04-25] MEDS ORDERED: IPRATROPIUM BROM 0.5MG/2.5ML ONE (02:37)
[2024-04-25] MEDS ORDERED: METHYLPREDNISOLONE 125 MG INJ ONE (02:37)
[2024-04-25] MEDS ORDERED: predniSONE 20 MG TAB ONE (02:37)
[2024-04-25] MEDS ORDERED: LEVALBUTEROL 1.25 MG/3 ML NEB ONE ×3 (02:37→05:00)
[2024-04-25] MEDS ORDERED: Magnesium Sulfate 2gm IVPB 2 G/50 ML BAG IV ONE (02:38)
[2024-04-25] MEDS ORDERED: NA CHLORIDE 0.9% 1,000 ML ONE (02:38)
[2024-04-25] MEDS ORDERED: LORazepam 2 MG/ML VIAL ONE (02:40)
[2024-04-25 02:47] LABS: Absolute Basophils 0.2 K/uL (0-0.5); Absolute Eosinophils 0.1 K/uL (0-0.5); Absolute Lymphocytes (CBC) 2.8 K/uL (0.7-4.9); Absolute Monocytes 1.6 K/uL (0.1-1.3); Absolute Neutrophil 13.6 K/uL (1.8-8.0); Basophils % 0.9 % (0-1.3); Eosinophils % 0.5 % (0-4.4); Hemoglobin 14.4 g/dL (13.6-17.9); Lymphocytes % 15.5 % (15.3-44.8); MCHC 33.5 g/dL (32.0-36.0); MCV 98.2 fL (80-100); MPV 7.3 fL (7.6-11.3); Monocytes % 8.7 % (3.3-12.3); Neutrophils % 74.4 % (41.7-73.7); Nucleated Red Blood Cells % 0.1 % (0-0); Platelets 297 thou/uL (152-406); RBC Red Blood Cell Count 4.38 M/uL (4.33-5.43); Red Cell Distribution Width 16.3 % (12.1-15.2)
[2024-04-25 02:53] LABS: PT Prothrombin Time 10.9 SECONDS (9.5-12.5); Protime INR 0.99
[2024-04-25] MEDS ORDERED: ASPIRIN 81 MG CHEWABLE TABLET ONE (03:08)
[2024-04-25 03:26] LABS: ALT/SGPT 25 U/L (16-61); Albumin 3.9 g/dL (3.4-5.0); Albumin/Globulin Ratio 0.9 (1.1-1.8); Alkaline Phosphatase 63 U/L (45-117); Anion Gap 11.4 mEq/L (5.0-15.0); BUN Blood Urea Nitrogen 13 mg/dL (7-18); Bicarbonate 24 mEq/L (21-32); Bilirubin Total 0.4 mg/dL (0.2-1.0); Globulin 4.3 g/dL (2.3-3.5); Glomerular Filtration Rate 102 ml/min (=/>90); Glucose Level 86 mg/dL (74-106); NT PRO-BNP 300 pg/mL (<125); Protein, Total 8.2 g/dL (6.4-8.2); Sodium Level 141 mEq/L (136-145); Troponin High Sensitivity 37.5 pg/mL (<58.9)
[2024-04-25 03:39] LABS: AST/SGOT 11 U/L (15-37); Bilirubin Direct < 0.2 mg/dL (0-0.2); Bilirubin Indirect, Calculated 0.2 mg/dL (0.2-0.8); Magnesium 2.4 mg/dL (1.6-2.4); Potassium 3.4 mEq/L (3.5-5.1)
[2024-04-25] MEDS ORDERED: CEFTRIAXONE 1000 MG/VIAL ONE (04:13)
[2024-04-25] MEDS ORDERED: AMOX/K CLAV 875 MG TAB ONE (04:14)
[2024-04-25] MEDS ORDERED: POTASSIUM 25 MEQ EFFERV TAB ONE (04:14)
[2024-04-25] MEDS ORDERED: NA CHLORIDE 0.9% 500 ML ONE (04:25)
[2024-04-25] MEDS ORDERED: MORPHINE 4 MG/ML SYR ONE (04:46)
[2024-04-25] MEDS ORDERED: ONDANSETRON 4 MG/2 ML VIAL ONE ×2 (04:46→05:19)
[2024-04-25] MEDS ORDERED: HYDROMORPHONE HCL 1 MG/ML INJ ONE (05:19)
--- NOTE | 2024-04-25 05:40 | EDPHYS ---
Physician Documentation [facility] Name: Randy Briones Age: 53 yrs Sex: Male : 1970 Arrival Date: 04/25/2024 Time: 02:00 Bed 8 Private MD: ED Physician Bg Briones HPI: 04/25 02:21 This 53 yrs old Male presents to ER via Unassigned with complaints of akash Shortness Of Breath. 02:21 This 53 yrs old Male presents to ER via Unassigned with complaints of akash Shortness Of Breath. 02:21 The patient has shortness of breath at rest. Onset: The symptoms/episode began/occurred akash 2 day(s) ago. Duration: The symptoms are continuous, and are steadily getting worse. The patient's shortness of breath is aggravated by coughing, light activity. Associated signs and symptoms: The patient has no apparent associated signs or symptoms. Severity of symptoms: At their worst the symptoms were moderate just prior to arrival, in the emergency department the symptoms have improved. Historical: - Allergies: 02:26 Lisinopril; lg3 - PMHx: 02:26 Alcoholism; COPD; Hepatitis B (Hypertension); home 02 3LNC PRN; Hypertension; lg3 Osteoporosis; - PSHx: 02:26 Amputation of left index finger; lg3 - Immunization history:: Adult Immunizations up to date, Client reports receiving the 2nd dose of the Covid vaccine. - Infectious Disease History:: Denies. - Family history:: not pertinent. - Social history:: Smoking status: Patient reports the use of cigarette tobacco products, smokes three packs cigarettes per day. Patient uses alcohol, on a daily basis. patient/guardian reports chronic longstanding heavy alcohol consumption. ROS: 02:23 Constitutional: Negative for fever, chills, and weight loss, Eyes: Negative for injury, akash pain, redness, and discharge, ENT: Negative for injury, pain, and discharge, Neck: Negative for injury, pain, and swelling, Cardiovascular: Negative for chest pain, palpitations, and edema, Abdomen/GI: Negative for abdominal pain, nausea, vomiting, diarrhea, and constipation, Back: Negative for injury and pain, : Negative for injury, bleeding, discharge, and swelling, MS/Extremity: Negative for injury and deformity, Skin: Negative for injury, rash, and discoloration, Neuro: Negative for headache, weakness, numbness, tingling, and seizure, Psych: Negative for depression, anxiety, suicide ideation, homicidal ideation, and hallucinations, Allergy/Immunology: Negative for hives, rash, and allergies, Endocrine: Negative for neck swelling, polydipsia, polyuria, polyphagia, and marked weight changes, Hematologic/Lymphatic: Negative for swollen nodes, abnormal bleeding, and unusual bruising, 02:23 Respiratory: Positive for cough, with no reported sputum, dyspnea on exertion, orthopnea, shortness of breath, at rest. wheezing, expiratory, of the right posterior upper lobe and right posterior middle lobe, Exam: 02:23 Constitutional: This is a well developed, well nourished patient who is awake, alert, akash and in no acute distress. Head/Face: Normocephalic, atraumatic. Eyes: Pupils equal round and reactive to light, extra-ocular motions intact. Lids and lashes normal. Conjunctiva and sclera are non-icteric and not injected. Cornea within normal limits. Periorbital areas with no swelling, redness, or edema. ENT: Nares patent. No nasal discharge, no septal abnormalities noted. Tympanic membranes are normal and external auditory canals are clear. Oropharynx with no redness, swelling, or masses, exudates, or evidence of obstruction, uvula midline. Mucous membranes moist. Neck: Trachea midline, no thyromegaly or masses palpated, and no cervical lymphadenopathy. Supple, full range of motion without nuchal rigidity, or vertebral point tenderness. No Meningismus. Chest/axilla: Normal chest wall appearance and motion. Nontender with no deformity. No lesions are appreciated. Cardiovascular: Regular rate and rhythm with a normal S1 and S2. No gallops, murmurs, or rubs. Normal PMI, no JVD. No pulse deficits. Abdomen/GI: Soft, non-tender, with normal bowel sounds. No distension or tympany. No guarding or rebound. No evidence of tenderness throughout. Back: No spinal tenderness. No costovertebral tenderness. Full range of motion. Male : Normal genitalia with no discharge or lesions. Skin: Warm, dry with normal turgor. Normal color with no rashes, no lesions, and no evidence of cellulitis. MS/ Extremity: Pulses equal, no cyanosis. Neurovascular intact. Full, normal range of motion. Neuro: Awake and alert, GCS 15, oriented to person, place, time, and situation. Cranial nerves II-XII grossly intact. Motor strength 5/5 in all extremities. Sensory grossly intact. Cerebellar exam normal. Normal gait. Psych: Awake, alert, with orientation to person, place and time. Behavior, mood, and affect are within normal limits. 02:23 Respiratory: mild respiratory distress is noted, Respirations: labored breathing, that is mild, that is moderate, Breath sounds: bronchial sounds, that are moderate, decreased breath sounds, that are mild, rhonchi, that are mild, stridor, is not appreciated, + upper airway congestion. wheezing: expiratory is scattered, 02:37 ECG was reviewed by the Attending Physician. akash 02:37 Musculoskeletal/extremity: DVT Exam: No signs of deep vein thrombosis. no pain, no swelling, no tenderness, negative Homans' sign noted on exam, no appreciated bluish discoloration, no erythema, no increased warmth, Vital Signs: 02:25 BP 124 / 71; Pulse 112; Resp 20 S; Temp 98.1(O); Pulse Ox 100% on R/A; Weight 78.93 kg lg3 (R); Height 5 ft. 4 in. (R); 03:42 BP 135 / 86; Pulse 127; Pulse Ox 100% on Nebulizer Mask; tm6 04:57 BP 126 / 85; Pulse 113; Resp 22; Pulse Ox 99% on 3 lpm NC; Pain 10/10; tm6 02:25 Body Mass Index 29.87 (78.93 kg, 162.56 cm) lg3 04:57 Pain Scale: Adult tm6 MDM: 02:07 Patient medically screened. akash 02:25 Differential diagnosis: Anemia Bronchitis CHF exacerbation, Chronic Obstructive akash Pulmonary Disease Myocardial Infarction pneumonia, Pneumothorax pulmonary edema, reactive airway disease, Unstable Angina. Antibiotic administration: The patient is discharged and will get outpatient antibiotics, Amoxicillin. Differential Diagnosis. Immunization status: Influenza vaccine: within last 5 years. Data reviewed: vital signs, nurses notes, lab test result(s). Consideration of Admission/Observation Escalation of care including admission/observation considered. I considered the following discharge prescriptions or medication management in the emergency department Medications were administered in the Emergency Department. See MAR. Test considered but Not performed: CT: no ct chest. 04/25 02:09 Order name: Basic Metabolic Panel; Complete Time: 03:56 [facility] 04/25 02:09 Order name: CBC with Diff; Complete Time: 03:56 [facility] 04/25 02:09 Order name: LFT's; Complete Time: 03:56 [facility] 04/25 02:09 Order name: Magnesium; Complete Time: 03:56 [facility] 04/25 02:09 Order name: NT PRO-BNP; Complete Time: 03:56 [facility] 04/25 02:09 Order name: PT-INR; Complete Time: 03:56 [facility] 04/25 02:09 Order name: Troponin HS; Complete Time: 03:56 [facility] 04/25 04:41 Order name: Troponin High Sensitivity: 445 PM; Complete Time: 05:43 [facility] 04/25 02:09 Order name: XRAY Chest (1 view) [facility] 04/25 02:09 Order name: EKG; Complete Time: 02:09 [facility] 04/25 02:09 Order name: Cardiac monitoring; Complete Time: 02:32 [facility] 04/25 02:09 Order name: EKG - Nurse/Tech; Complete Time: 02:32 [facility] 04/25 02:09 Order name: IV Saline Lock; Complete Time: 02:32 [facility] 04/25 02:09 Order name: Labs collected and sent; Complete Time: 02:32 [facility] 04/25 02:09 Order name: O2 Per Protocol; Complete Time: 02:32 [facility] 04/25 02:09 Order name: O2 Sat Monitoring; Complete Time: 02:32 [facility] EC:37 Rate is 113 beats/min. Rhythm is regular. QRS [place] is Normal. SD interval is normal. [facility] QRS interval is normal. QT interval is normal. No Q waves. T waves are Normal. No ST changes noted. Clinical impression: Sinus tachycardia. Interpreted by me. Reviewed by me. Administered Medications: 02:29 CANCELLED (Duplicate Order): levalbuterol2.5 mg Inhalation once akash 02:47 Drug: MethylPrednisoLONE IVP 125 mg IVP once Route: IVP; Site: right antecubital; lg3 02:47 Drug: Ipratropium Inhalation Aerosol 0.5 mg Inhalation once Route: Inhalation; lg3 02:47 Drug: predniSONE PO 40 mg PO once Route: PO; lg3 02:47 Drug: Ativan IVP 1 mg IVP once Route: IVP; Site: right antecubital; lg3 02:47 Drug: Levalbuterol Inhalation 3.75 mg Inhalation once Route: Inhalation; lg3 02:48 Drug: NS 0.9% IV 1000 ml IV at 125 ml/hr continuous Route: IV; Rate: 125 ml/hr; Site: lg3 right antecubital; 02:48 Drug: Thiamine IV 100 mg IV at bolus once Route: IV; Rate: bolus; Site: right lg3 antecubital; 03:05 Drug: Magnesium Sulfate IVPB 2 grams IVPB once over 1 hrs Route: IVPB; Infused Over: 1 lg3 hrs; Site: right antecubital; 03:07 Drug: NS 0.9% IV 500 ml IV at bolus once Route: IV; Rate: bolus; Site: right tm6 antecubital; 04:29 Follow up: IV Status: Completed infusion; IV Intake: 500ml tm6 03:23 Drug: Aspirin PO Chewable Tablet 81 mg PO once Route: PO; tm6 04:18 Drug: Levalbuterol Inhalation 2.5 mg Inhalation once Route: Inhalation; tm6 04:18 Drug: Amoxicillin-Clavulanate PO 875 mg PO once Route: PO; tm6 04:18 Drug: Potassium PO Effervescent Tablet 25 mEq PO once; dissolve in 4 ounces of water or tm6 juice Route: PO; 04:29 Drug: NS 0.9% IV 500 ml IV at bolus once Route: IV; Rate: bolus; Site: right tm6 antecubital; 06:09 Follow up: IV Status: Completed infusion; IV Intake: 500ml tm6 04:30 Drug: Rocephin IV 1 grams IV at per protocol once; Given slow IV push per pharmacy tm6 instructions Route: IV; Rate: per protocol; Site: right antecubital; 06:09 Follow up: Response: No adverse reaction tm6 04:54 Drug: morphine IVP or IV 4 mg IVP once over 4 mins Route: IVP; Infused Over: 4 mins; tm6 Site: right antecubital; 06:08 Follow up: Response: Pain is unchanged, physician notified tm6 04:54 Drug: Ondansetron IVP 4 mg IVP once; over 2 minutes Route: IVP; Site: right antecubital;tm6 06:08 Follow up: Response: No adverse reaction tm6 05:17 CANCELLED (Duplicate Order): hydromorphone1 mg IVP once tm6 05:54 Not Given (Patient Refused): levalbuterol1.25 mg Inhalation once tm6 05:54 Not Given (patient pulled out IVv): ondansetron 4 mg IVP once; over 2 minutes tm6 05:54 Not Given (patient pulled out IVv): hydromorphone1 mg IVP once tm6 Disposition Summary: 04/25/24 05:40 Discharge Ordered Notes: Location: Home akash Problem: new akash Symptoms: have improved akash Condition: Stable akash Diagnosis - Dyspnea akash - COPD/ Chronic obstructive pulmonary disease with (acute) exacerbation akash - Tobacco abuse counseling akash - Tobacco use akash - Alcohol abuse akash - Hypokalemia akash - Elevated white blood cell count akash Followup: akash - With: Private Physician - When: 2 - 3 days - Reason: Recheck today's complaints, Continuance of care, Re-evaluation by your physician Followup: akash - With: Mayur Martinez MD - When: 2 - 3 days - Reason: Recheck today's complaints, Continuance of care, Re-evaluation by your physician Discharge Instructions: - Discharge Summary Sheet akash - Alcohol Use Disorder akash - Chronic Obstructive Pulmonary Disease akash - Potassium Content of Foods akash - Steps to Quit Smoking akash - Health Risks of Smoking akash - Chronic Obstructive Pulmonary Disease Exacerbation akash - Chronic Obstructive Pulmonary Disease, [id number] akash - Alcohol Abuse and Nutrition akash - Steps to Quit Smoking, [id number] akash - Cough, Adult, [id number] akash - How to Use a Nebulizer, Adult akash - Aspirin and Your Heart akash - Hypokalemia akash - Chronic Obstructive Pulmonary Disease Exacerbation, Wwtu-by-Xhuk [facility] Forms: - Medication Reconciliation Form akash - Antibiotic Education akash - Prescription Opioid Use akash - Patient Portal Instructions [facility] - Leadership Thank You Letter [facility] Prescriptions: - albuterol sulfate 90 mcg/actuation Inhalation HFA Aerosol Inhaler - inhale 2 puff INHALATION route every 4 to 6 hours as needed for shortness of akash breath or wheezing; 1 unit; Refills: 0, Product Selection Permitted - Augmentin 875-125 mg Oral Tablet - take 1 tablet ORAL route every 12 hours for 10 days; 20 tablet; Refills: 0, [facility] Product Selection Permitted - Albuterol Sulfate 2.5 mg /3 mL (0.083 %) Inhalation Solution for Nebulization - inhale 1 unit NEBULIZATION route every 4-6 hours As needed; 25 unit; Refills: akash 0, Product Selection Permitted - Prednisone 20 mg Oral Tablet - take 2 tablets ORAL route once daily for 5 days; 10 tablet; Refills: 0, Product akash Selection Permitted Signatures: Dispatcher [employer] Bg Whitfield MD MD cha Able, Lacie, RN RN lg3 Leland Graf RN RN tm6 Corrections: (The following items were deleted from the chart) 02:29 02:09 Levalbuterol Inhalation 2.5 mg Inhalation once ordered. akash bustos 05:17 05:16 HYDROmorphone IVP 1 mg IVP once ordered. tm6 tm6
--- NOTE | 2024-04-25 05:40 | ER ---
Nurse's Notes [facility] Name: Randy Briones Age: 53 yrs Sex: Male : 1970 Arrival Date: 04/25/2024 Time: 02:00 Bed 8 Private MD: Diagnosis: Dyspnea;COPD/ Chronic obstructive pulmonary disease with (acute) exacerbation;Tobacco abuse counseling;Tobacco use;Alcohol abuse;Hypokalemia;Elevated white blood cell count Presentation: 04/25 02:25 Chief complaint: Patient states: SOB with CP. Coronavirus screen: Client denies travel lg3 out of the [place] in the last 14 days. Ebola Screen: No symptoms or risks identified at this time. Initial Sepsis Screen: Does the patient meet any 2 criteria? No. Patient's initial sepsis screen is negative. Does the patient have a suspected source of infection? No. Patient's initial sepsis screen is negative. Risk Assessment: Do you want to hurt yourself or someone else? Patient reports no desire to harm self or others. Onset of symptoms is unknown. 02:25 Method Of Arrival: EMS: [facility] lg3 02:25 Acuity: CANDACE 3 lg3 Triage Assessment: 02:26 General: Appears in no apparent distress. Behavior is cooperative, anxious. Pain: lg3 Complains of pain in chest. EENT: No deficits noted. No signs and/or symptoms were reported regarding the EENT system. Neuro: No deficits noted. Macario Agitation-Sedation Scale (RASS): 0 - Alert and Calm Level of Consciousness is awake, alert, obeys commands, Oriented to person, place, time, situation. Cardiovascular: No deficits noted. Reports chest pain, shortness of breath, Heart tones S1 S2 present. Respiratory: Reports shortness of breath Breath sounds with wheezes Onset: The symptoms/episode began/occurred at an unknown time. the patient has mild shortness of breath. GI: No deficits noted. No signs and/or symptoms were reported involving the gastrointestinal system. : No deficits noted. No signs and/or symptoms were reported regarding the genitourinary system. Derm: No deficits noted. No signs and/or symptoms reported regarding the dermatologic system. Skin is intact, is healthy with good turgor, Skin is dry, Skin is normal, Skin temperature is warm. Musculoskeletal: No deficits noted. No signs and/or symptoms reported regarding the musculoskeletal system. Circulation, motion, and sensation intact. Range of motion: intact in all extremities. Historical: - Allergies: 02:26 Lisinopril; lg3 - PMHx: 02:26 Alcoholism; COPD; Hepatitis B (Hypertension); home 02 3LNC PRN; Hypertension; lg3 Osteoporosis; - PSHx: 02:26 Amputation of left index finger; lg3 - Immunization history:: Adult Immunizations up to date, Client reports receiving the 2nd dose of the Covid vaccine. - Infectious Disease History:: Denies. - Family history:: not pertinent. - Social history:: Smoking status: Patient reports the use of cigarette tobacco products, smokes three packs cigarettes per day. Patient uses alcohol, on a daily basis. patient/guardian reports chronic longstanding heavy alcohol consumption. Screenin:47 [facility] ED Fall Risk Assessment (Adult) History of falling in the last 3 months, tm6 including since admission No falls in past 3 months (0 pts) Confusion or Disorientation No (0 pts) Intoxicated or Sedated No (0 pts) Impaired Gait No (0 pts) Mobility Assist Device Used No (0 pt) Altered Elimination No (0 pt) Score/Fall Risk Level 0 - 2 = Low Risk Oriented to surroundings, Maintained a safe environment, Educated pt \\T\\ family on fall prevention, incl call for assistance when getting out of bed. Abuse screen: Denies threats or abuse. Denies injuries from another. Nutritional screening: No deficits noted. Tuberculosis screening: No symptoms or risk factors identified. Assessment: 03:46 General: Appears uncomfortable, Behavior is cooperative. Pain: Denies pain. Neuro: tm6 Level of Consciousness is awake, alert, obeys commands, Oriented to person, place, time, situation. Cardiovascular: Patient's skin is warm and dry. Rhythm is sinus tachycardia. Respiratory: Airway is patent Respiratory effort is even, labored, Respiratory pattern is symmetrical. GI: Abdomen is round. : No signs and/or symptoms were reported regarding the genitourinary system. EENT: No signs and/or symptoms were reported regarding the EENT system. Derm: No signs and/or symptoms reported regarding the dermatologic system. Musculoskeletal: No signs and/or symptoms reported regarding the musculoskeletal system. 04:57 Reassessment: No changes from previously documented assessment. tm6 05:10 Reassessment: patient refused breathing treatment until he receives pain medication tm6 "stronger than morphine." Will notify MD. 05:30 Reassessment: upon returning to patient's room with more pain medication, patient had tm6 pulled out his own IV, taken off all monitoring, and put back on his street clothes. Patient stated he still wanted the pain medication and asked to get another IV placed. RN consulted with set up and charger for assistance. 05:47 General: pt at nurses station stating he is going outside to smoke. told PT that was lg3 not an option at this time due to [facility] being a tobacco free campus and that he was still a PT in the ED being seen for SOB. Provider educated PT on smoking cessation and hospital policies. PT becomes increasingly hostile and states " I've been smoking here for 20 years and they let me do it all the time. this is bullshit. Dr. Martin gave me specific orders that i can go smoke across the street ". ER provider completed discharge at this time. Pt signed and departed ED. Vital Signs: 02:25 BP 124 / 71; Pulse 112; Resp 20 S; Temp 98.1(O); Pulse Ox 100% on R/A; Weight 78.93 kg lg3 (R); Height 5 ft. 4 in. (R); 03:42 BP 135 / 86; Pulse 127; Pulse Ox 100% on Nebulizer Mask; tm6 04:57 BP 126 / 85; Pulse 113; Resp 22; Pulse Ox 99% on 3 lpm NC; Pain 10/10; tm6 02:25 Body Mass Index 29.87 (78.93 kg, 162.56 cm) lg3 04:57 Pain Scale: Adult tm6 ED Course: 02:01 Patient arrived in ED. jj6 02:02 Leland Graf, RN is Primary Nurse. tm6 02:07 Bg Briones MD is Attending Physician. akash 02:20 Inserted saline lock: 18 gauge in right antecubital area, using aseptic technique. ty Blood collected. 02:26 Triage completed. lg3 02:26 Arm band placed on right wrist. EKG completed in triage. Results shown to MD. EKG lg3 completed in triage. Results shown to . 02:35 EKG done, by ED staff, reviewed by Bg Briones MD. kmf 02:36 Door closed. Noise minimized. kmf 02:36 Basic Metabolic Panel Sent. ty 02:36 CBC with Diff Sent. ty 02:36 LFT's Sent. ty 02:36 Magnesium Sent. ty 02:36 NT PRO-BNP Sent. ty 02:36 PT-INR Sent. ty 02:36 Troponin HS Sent. ty 02:36 Initial lab(s) drawn, by me, sent to lab. ty 03:07 XRAY Chest (1 view) In Process Unspecified. EDMS 03:47 Patient has correct armband on for positive identification. Placed in gown. Bed in low tm6 position. Call light in reach. Provided Education on: use of call arce. Client placed on continuous cardiac and pulse oximetry monitoring. NIBP monitoring applied. pvc monitor on. Pulse ox on. NIBP on. 05:09 Troponin High Sensitivity: 445 PM Sent. tm6 05:40 Mayur Martinez MD is Referral Physician. akash 06:05 No provider procedures requiring assistance completed. IV discontinued, intact, lg3 bleeding controlled, No redness/swelling at site. Pressure dressing applied. Administered Medications: 02:29 CANCELLED (Duplicate Order): levalbuterol2.5 mg Inhalation once akash 02:47 Drug: MethylPrednisoLONE IVP 125 mg IVP once Route: IVP; Site: right antecubital; lg3 02:47 Drug: Ipratropium Inhalation Aerosol 0.5 mg Inhalation once Route: Inhalation; lg3 02:47 Drug: predniSONE PO 40 mg PO once Route: PO; lg3 02:47 Drug: Ativan IVP 1 mg IVP once Route: IVP; Site: right antecubital; lg3 02:47 Drug: Levalbuterol Inhalation 3.75 mg Inhalation once Route: Inhalation; lg3 02:48 Drug: NS 0.9% IV 1000 ml IV at 125 ml/hr continuous Route: IV; Rate: 125 ml/hr; Site: lg3 right antecubital; 02:48 Drug: Thiamine IV 100 mg IV at bolus once Route: IV; Rate: bolus; Site: right lg3 antecubital; 03:05 Drug: Magnesium Sulfate IVPB 2 grams IVPB once over 1 hrs Route: IVPB; Infused Over: 1 lg3 hrs; Site: right antecubital; 03:07 Drug: NS 0.9% IV 500 ml IV at bolus once Route: IV; Rate: bolus; Site: right tm6 antecubital; 04:29 Follow up: IV Status: Completed infusion; IV Intake: 500ml tm6 03:23 Drug: Aspirin PO Chewable Tablet 81 mg PO once Route: PO; tm6 04:18 Drug: Levalbuterol Inhalation 2.5 mg Inhalation once Route: Inhalation; tm6 04:18 Drug: Amoxicillin-Clavulanate PO 875 mg PO once Route: PO; tm6 04:18 Drug: Potassium PO Effervescent Tablet 25 mEq PO once; dissolve in 4 ounces of water or tm6 juice Route: PO; 04:29 Drug: NS 0.9% IV 500 ml IV at bolus once Route: IV; Rate: bolus; Site: right tm6 antecubital; 06:09 Follow up: IV Status: Completed infusion; IV Intake: 500ml tm6 04:30 Drug: Rocephin IV 1 grams IV at per protocol once; Given slow IV push per pharmacy tm6 instructions Route: IV; Rate: per protocol; Site: right antecubital; 06:09 Follow up: Response: No adverse reaction tm6 04:54 Drug: morphine IVP or IV 4 mg IVP once over 4 mins Route: IVP; Infused Over: 4 mins; tm6 Site: right antecubital; 06:08 Follow up: Response: Pain is unchanged, physician notified tm6 04:54 Drug: Ondansetron IVP 4 mg IVP once; over 2 minutes Route: IVP; Site: right antecubital;tm6 06:08 Follow up: Response: No adverse reaction tm6 05:17 CANCELLED (Duplicate Order): hydromorphone1 mg IVP once tm6 05:54 Not Given (Patient Refused): levalbuterol1.25 mg Inhalation once tm6 05:54 Not Given (patient pulled out IVv): ondansetron 4 mg IVP once; over 2 minutes tm6 05:54 Not Given (patient pulled out IVv): hydromorphone1 mg IVP once tm6 Medication: 03:47 VIS not applicable for this client. tm6 Intake: 04:29 IV: 500ml; Total: 500ml. tm6 06:09 IV: 500ml; Total: 1000ml. tm6 Outcome: 05:40 Discharge ordered by MD. bustos 06:05 Discharged to home ambulatory, lg3 06:05 Condition: stable 06:05 Discharge instructions given to patient, Instructed on discharge instructions, follow up and referral plans. no drinking with medication, medication usage, Demonstrated understanding of instructions, follow-up care, medications, Prescriptions given X 4, 06:09 Patient left the ED. tm6 Signatures: Dispatcher [employer] EDMS Bg Briones MD MD cha Able, Lacie, RN RN lg3 Beatriz Mars6 Maria Elena Silva Tawney, RN RN tm6 Bassam Fraser
[2024-04-25 06:25] VITALS: BP 126/85; TEMP 98.1; O2SAT 99
--- NOTE | 2024-04-25 11:00 | RAD REPORT ---
EXAM DESCRIPTION: XR Chest, 1 View CLINICAL HISTORY: The patient is 53 years old and is Male; COPD TECHNIQUE: Frontal view of the chest. COMPARISON: No relevant prior studies available. FINDINGS: Lungs: Unremarkable. No consolidation. Pleural space: Unremarkable. No pneumothorax. Heart: Unremarkable. Mediastinum: Unremarkable. Normal mediastinal contour. Bones/joints: No acute findings. IMPRESSION: No acute findings in the chest. Electronically signed by: Sunil Torres MD 04/25/2024 04:08 AM CDT 8 Due to temporary technical issues with the PACS/Fluency reporting system, reports are being signed by the in house radiologist without review as a courtesy to ensure prompt reporting. The interpreting r adiologist is fully responsible for the content of the report.
--- NOTE | 2024-04-25 14:51 | EKG ---
Test Date: 2024-04-25 Test Time: 02:29:54 Ems Manager: SHAYAN MEASUREMENT RESULTS: Intervals: Rate: 111 MI: 132 QRSD: 100 QT: 336 QTc: 456 [place]: P: 65 MI: 132 QRS: 83 T: 54 INTERPRETIVE STATEMENTS: Sinus tachycardia Incomplete right bundle branch block ST & T wave abnormality, consider inferior ischemia Abnormal ECG Compared to ECG 04/20/2024 04:16:29 Incomplete right bundle-branch block now present ST (T wave) deviation now present Possible ischemia now present Electronically Signed On 04-25-24 14:50:40 CDT by Rosalino Albert
== END 2024-04-25 06:09 | disposition home or self-care (01) ==
LOC: ER 02:00
DX: J44.1 Chronic obstructive pulmonary disease with (acute) exacerbation (principal); F10.20 Alcohol dependence, uncomplicated; E87.6 Hypokalemia; D72.829 Elevated white blood cell count, unspecified; Z71.6 Tobacco abuse counseling; Z72.0 Tobacco use; Z99.81 Dependence on supplemental oxygen
CPT/HCPCS: 93005; 85025; 80048; 36415; 83735; 85610; 80076; 84484 ×2; 83880; 71045; J3411; J7512; J3475; J7614 ×3; J7644; J2919; J2405; J7040; J7030; J0696; 96361; 96374; 96375; 99285; J1170

== ENCOUNTER 2024-04-26 01:00 | Emergency (ER) | payer OTHER ==
--- OUTSIDE RECORDS SUMMARY | 2024-04-26 01:06 | XMS REPORT | Continuity of Care Document ---
Author Name Unknown Address [address] [place] [address] [facility] thconnect Address [address] [place] [address] Care Team Providers Care Calender Wind Up Helper Name Role Phone ADRIANNA LOPEZ Primary Care Physician Unavailab DARIEN Posey Attending Clinician Unavailable MINNA ORTA Attending Clinician Unavailab WENDY High Attending Clinician Unava SHARATH Mancera Attending Clinician Unavailable PEG CAMP Attending Clinician Unavailable Peg Camp NP Attending Clinician [phone] DEMETRIA DAVENPORT Attending Clinician UnaDemetria Carver MD Attending Clinician + Christina Victoria Attending Clinician [phone] JAC NAVARRO Attending Clinician Unavailable Jac Navarro MD Attending Clinician [phone] TYLER ROWE Attending Clinician Unavailab MELINDA Boothe Attending Clinician Unavailable Melinda Maciel DO Attending Clinician [phone] CHRISTY HOLLIDAY Attending Clinician Unavailable Christy Holliday MD Attending Clinician MARIA ELENA CHAN MEDICAL Attending George akins Unavailable DENISE SUNG Attending Clinician Unavailable KARLEY ADAMS Attending Clinician Unavailable JAC NAVARRO Admitting Clinician Unavailable MELNIDA MACIEL Admitting Clinician Unavailable CHRISTY HOLLIDAY Admitting Clinician Unavailable Payers Payer Name Policy Type Policy Number Effective Date Expirati on Date Source [facility] FOCUS 9 [id number] 2024 00:00:00 [facility] [id number] 2023 00:00:00 2024 00:00:00 [employer] [id number] 2023 00:00:00 [employer] 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 ON 9 [id number] 2023 00:00:00 Problems Condition Name Condition Details Condition Category Status Onset Date Resolution Date Last Treatment Date Treating Clinician Comments Source Acute exacerbati on of chronic obstructiv e pulmonary disease (COPD) Acute exacerbati on of chronic obstructiv e pulmonary disease (COPD) Disease Active 03-24 00:00: 00 [facility] Obesity (BMI 30-39.9) Obesity (BMI 30-39.9) Disease Active 03-24 00:00: 00 [facility] Allergies, Adverse Reactions, Alerts Allergy Name Allergy Type Status Severity Reaction(s) Onset Date Inactive Date Treating Clinician Comments Source Lisinopr il Propensi ty to adverse reaction s Active Anaphylaxis 03-24 00:00: 00 [facility] LISINOPR [place] DRUG INGREDI Active Anaphylaxis 03-24 00:00: 00 [facility] Social History Social Habit Start Date Stop Date Quantity Comments Source History of tobacco use Smokes tobacco daily [facility] of Social function 2024-02-08 00:00:00 2024-02-08 00:00:00 [facility] Alcohol intake 2024-02-08 00:00:00 2024-02-08 00:00:00 4.29 /d [facility] Exposure to SARS-CoV-2 (event) 2022-10-04 00:00:00 2022-10-14 10:25:00 Not sure [facility] Tobacco use and exposure 2018-03-24 00:00:00 2018-03-24 00:00:00 User of smokeless tobacco [facility] Tobacco Comment 2018-03-24 00:00:00 2018-03-24 00:00:00 trying to quit [facility] Sex Assigned At 1970 00:00:00 1970 00:00:00 [facility] Smoking Status Start Date Stop Date Source Smokes tobacco daily 2018-03-24 00:00:00 [facility] Medications Ordered Medication Name Filled Medication Name Start Date Stop Date Current Medication? Ordering Clinician Indication Dosage Frequency Signature (SIG) Comments Components Source ketorolac (TORADOL) injection 30 mg 02-17 03:15: 00 02-17 15:14 :00 Yes 30mg 30 mg, Slow IV Push, ONCE, 1 dose, On Thu02/17/24 at 2215, Routine [facility] methylpredn isolone sod succ (SOLU-MEDRO L) injection 125 mg 02-17 03:00: 00 02-17 14:59 :00 Yes 125mg 125 mg, Intravenou s, ONCE, 1 dose, On Thu02/17/24 at 2200, 2 mL [facility] ipratropium -albuteroL (DUONEB) 0.5 mg-3 mg(2.5 mg base)/3 mL nebulizer solution 6 mL 02-17 03:00: 00 02-17 14:59 :00 Yes 6mL 6 mL, Inhalation , ONCE NOW, 1 dose, On Thu02/17/24 at 2200, Routine [facility] NaCl 0.9% (NS) bolus infusion 1,000 mL 02-17 03:00: 00 02-17 14:59 :00 Yes 1000mL at 999 mL/hr, 1,000 mL, IV Infusion, ONCE, 1 dose, On Thu02/17/24 at 2200, LAURYN [facility] triamterene -hydrochlor othiazide 37.5-25 mg per capsule 02-16 20:52: 37 02-16 00:00 :00 No 1{capsu le} Take 1 capsule by mouth every morning. [facility] albuterol 5 mg/mL nebulizer solution 02-16 20:51: 42 02-16 00:00 :00 No 2.5mg Inhale 2.5 mg every 6 (six) hours as needed for Wheezing or Shortness of Breath. [facility] ketorolac (TORADOL) injection 15 mg 02-08 03:00: 00 02-08 02:21 :00 No 15mg 15 mg, Slow IV Push, ONCE, 1 dose, On Thu02/08/24 at 2200, Routine [facility] iopamidol (ISOVUE 370-500 mL) injection 100 mL 02-07 22:30: 00 02-07 22:30 :00 Yes [id number] 100mL 100 mL, Intravenou s, ONCE, 1 dose, On Thu02/08/24 at 1730, Routine [facility] ipratropium -albuteroL (DUONEB) 0.5 mg-3 mg(2.5 mg base)/3 mL nebulizer solution 3 mL 02-07 21:15: 00 02-07 20:45 :00 No 3mL 3 mL, Inhalation , ONCE, 1 dose, On Thu02/08/24 at 1615, Routine [facility] morpHINE (2 mg/mL) injection 4 mg 02-07 21:15: 00 02-07 20:27 :00 No 4mg 4 mg, Slow IV Push, ONCE, 1 dose, On Thu02/08/24 at 1615, STAT [facility] ondansetron (ZOFRAN (PF)) injection 4 mg 02-07 21:15: 00 02-07 20:22 :00 No 4mg 4 mg, Slow IV Push, ONCE, 1 dose, On Thu02/08/24 at 1615, [facility] magnesium sulfate in water 2 gram/50 mL (4 %) infusion 2 g 02-07 21:00: 00 02-07 21:30 :00 No 2g 2 g, IV Piggyback, Administer over 60 Minutes, ONCE, 1 dose, On Thu02/08/24 at 1600, [facility] ipratropium -albuteroL (DUONEB) 0.5 mg-3 mg(2.5 mg base)/3 mL nebulizer solution 3 mL 02-07 20:30: 00 02-07 19:31 :00 No 3mL 3 mL, Inhalation , ONCE, 1 dose, On Thu02/08/24 at 1530, Routine [facility] HYDROcodone -acetaminop hen (NORCO) 10-325 mg tablet 1 tablet 01-13 13:15: 00 01-13 12:15 :00 No 1{tbl} 1 tablet, Oral, ONCE, 1 dose, On Thu01/14/24 at 0715, [facility] ipratropium -albuteroL (DUONEB) 0.5 mg-3 mg(2.5 mg base)/3 mL nebulizer solution 3 mL 01-13 13:00: 00 01-13 11:53 :00 No 3mL 3 mL, Inhalation , ONCE NOW, 1 dose, On Thu01/14/24 at 0700, [facility] ondansetron (ZOFRAN (PF)) injection 4 mg 01-13 11:30: 00 01-13 11:37 :00 No 4mg 4 mg, Slow IV Push, ONCE, 1 dose, On Thu01/14/24 at 0530, [facility] morpHINE (4 mg/mL) injection 4 mg 01-13 11:30: 00 01-13 11:37 :00 No 4mg 4 mg, Slow IV Push, ONCE, 1 dose, On Thu01/14/24 at 0530, STAT [facility] azithromyci n (ZITHROMAX Z-PORTER) 250 mg tablet 01-13 00:00: 00 02-16 00:00 :00 No [id number] Take 500 mg on day 1 then 250 mg on days 2-5 [facility] predniSONE 20 mg tablet 01-13 00:00: 00 02-16 00:00 :00 No [id number] Take 1 po tid x 2 days, then take 1 po bid x 3 days, then take 1 po daily x 3 days. [facility] acetaminoph en-codeine 300-30 mg tablet 01-13 00:00: 00 01-21 04:59 :00 No [id number] 1{tbl} Take 1 tablet by mouth every 6 (six) hours as needed for Pain (scale 7-10) (severe cough) for up to 7 days. Indication s: acute pain, severe cough [facility] clonazePAM 1 mg tablet 12-26 00:00: 00 02-16 00:00 :00 No 1mg Take 1 tablet by mouth at bedtime as needed for Other (anxiety). [facility] KCL (KLOR-CON M20) tablet 40 mEq 12-23 05:00: 00 12-23 05:07 :00 No 40meq 40 mEq, Oral, ONCE, 1 dose, On Thu12/22/23 at 2300, [facility] NaCl 0.9% (NS) bolus infusion 1,000 mL 12-23 05:00: 00 12-23 05:09 :00 No 1000mL at 999 mL/hr, 1,000 mL, IV Infusion, ONCE, 1 dose, On Thu12/22/23 at 2300, [facility] ondansetron (ZOFRAN (PF)) injection 4 mg 12-23 04:30: 00 12-23 04:24 :00 No 4mg 4 mg, Slow IV Push, ONCE, 1 dose, On Thu12/22/23 at 2230, [facility] maalox:diph enhydrAMINE :lidocaine 2 % viscous 1:1:1 (FIRST-MOUT HWASH BLM) oral suspension 15 mL 12-23 04:15: 00 12-23 04:17 :00 No 15mL 15 mL, Oral, ONCE, 1 dose, On Thu12/22/23 at 2215, Routine [facility] famotidine (PEPCID (PF)) injection 20 mg 12-23 04:15: 00 12-23 04:15 :00 No 20mg 20 mg, Slow IV Push, ONCE, 1 dose, On Thu12/22/23 at 2215, LAURYN [facility] HYDROcodone -acetaminop hen (NORCO) 10-325 mg tablet 1 tablet 12-22 04:30: 00 12-22 16:29 :00 No 1{tbl} 1 tablet, Oral, ONCE, 1 dose, On Thu12/21/23 at 2230, Routine [facility] pantoprazol e (PROTONIX) 80 mg in NaCl 0.9% (NS) 20 mL syringe 12-22 04:15: 00 12-22 16:14 :00 No 80mg 80 mg, IV Push, ONCE, 1 dose, On Thu12/21/23 at 2215, Administer over 2 Minutes, 20 mL [facility] iopamidol (ISOVUE 370-500 mL) injection 100 mL 12-22 03:30: 00 12-22 03:30 :00 No [id number] 100mL 100 mL, Intravenou s, ONCE, 1 dose, On Thu12/21/23 at 2130, Routine [facility] morpHINE (4 mg/mL) injection 4 mg 12-22 03:30: 00 12-22 02:16 :00 No 4mg 4 mg, Slow IV Push, ONCE, 1 dose, On Thu12/21/23 at 2130, Routine [facility] ondansetron (ZOFRAN (PF)) injection 4 mg 12-22 02:45: 00 12-22 02:02 :00 No 4mg 4 mg, Slow IV Push, ONCE, 1 dose, On Thu12/21/23 at 2045, Routine [facility] hydrocortis one 25 mg suppository 12-22 00:00: 00 Yes [id number] 25mg Insert 1 Suppositor y into rectum 2 (two) times daily as needed for Rectal itching/pa in. [facility] ondansetron 4 mg disintegrat ing tablet 12-22 00:00: 00 02-16 00:00 :00 No [id number] 4mg Take 1 tablet by mouth every 8 (eight) hours as needed for Nausea and Vomiting (N/V). [facility] amoxicillin -clavulanat e 875-125 mg per tablet 12-22 00:00: 00 01-02 05:59 :00 No [id number] 1{tbl} Take 1 tablet by mouth every 12 (twelve) hours for 10 days. [facility] methylpredn isolone sod succ (SOLU-MEDRO L) injection 125 mg 2022-11 08:45: 00 10-27 20:44 :00 No 125mg 125 mg, Slow IV Push, ONCE, 1 dose, On Thu10/27/23 at 0245, STAT [facility] ipratropium -albuteroL (DUONEB) 0.5 mg-3 mg(2.5 mg base)/3 mL nebulizer solution 3 mL 2022-11 08:45: 00 10-27 20:44 :00 No 3mL 3 mL, Inhalation , ONCE NOW, 1 dose, On Thu10/27/23 at 0245, LAURYN [facility] diazePAM (VALIUM) tablet 10 mg 2022-11 07:45: 00 10-27 19:44 :00 No 10mg 10 mg, Oral, ONCE, 1 dose, On Thu10/27/23 at 0145, LAURYN [facility] levoFLOXaci n (LEVAQUIN) tablet 500 mg 2022-11 07:45: 00 10-27 19:44 :00 No 500mg 500 mg, Oral, ONCE, 1 dose, On Thu10/27/23 at 0145, LAURYN
Re ason for Anti-Infec tive: Empiric Non-Surgic al Prophylaxi s
Durat ion of therapy: Once (ED) [facility] iopamidol (ISOVUE 370-500 mL) injection 70 mL 2021-11 18:30: 00 10-14 18:30 :00 No [id number] 70mL 70 mL, Intravenou s, ONCE, 1 dose, On Thu10/14/22 at 1230, Routine [facility] methylpredn isolone sod succ (SOLU-MEDRO L) injection 125 mg 2021-11 18:00: 00 Yes 125mg 125 mg, Intravenou s, Q6H, First dose on Thu10/14/22 at 1200, Until Discontinu ed, Routine [facility] furosemide (LASIX) injection 40 mg 2021-11 17:45: 00 10-14 16:39 :00 No 40mg 40 mg, IV Push, ONCE, 1 dose, On Thu10/14/22 at 1145, LAURYN [facility] ipratropium -albuteroL (DUONEB) 0.5 mg-3 mg(2.5 mg base)/3 mL nebulizer solution 3 mL 2021-11 17:30: 00 10-14 16:41 :00 No 3mL 3 mL, Inhalation , ONCE, 1 dose, On Thu10/14/22 at 1130, Routine [facility] FENTanyl PF (SUBLIMAZE (PF)) injection 50 mcg 2021-11 16:45: 00 10-14 16:39 :00 No 50ug 50 mcg, Slow IV Push, ONCE, 1 dose, On Thu10/14/22 at 1045, Routine [facility] levoFLOXaci n 750 mg tablet 2021-11 00:00: 00 02-16 00:00 :00 No [id number] 750mg Take 1 tablet by mouth every 24 (twenty-fo ur) hours. [facility] HYDROcodone -acetaminop hen (NORCO) 10-325 mg tablet 1 tablet 03-12 12:15: 00 03-12 11:21 :00 No 1{tbl} 1 tablet, Oral, ONCE, 1 dose, On Thu03/12/22 at 0715, Routine [facility] HYDROcodone -acetaminop hen 10-325 mg tablet 03-12 00:00: 00 03-20 04:59 :00 No [id number] 1{tbl} Take 1 tablet by mouth every 6 (six) hours as needed for Pain (scale 7-10) for up to 7 days. Indication s: acute pain [facility] ipratropium -albuteroL (DUONEB) 0.5 mg-3 mg(2.5 mg base)/3 mL nebulizer solution 3 mL 02-20 13:00: 00 Yes 3mL 3 mL, Inhalation , QID, First dose on Thu02/20/22 at 0800, Until Discontinu ed, Routine [facility] methylPREDN ISolone sod succ (SOLU-MEDRO L (PF)) injection 40 mg 02-20 11:45: 00 02-20 10:43 :00 No 40mg 40 mg, Intravenou s, ONCE, 1 dose, On Thu02/20/22 at 0645, STAT [facility] foLIC acid (FOLATE) tablet 1 mg 02-20 11:45: 00 02-20 10:41 :00 No 1mg 1 mg, Oral, ONCE, 1 dose, On Thu02/20/22 at 0645, LAURYN [facility] thiamine (VITAMIN B1) injection 100 mg 02-20 11:45: 00 02-20 10:43 :00 No 100mg 100 mg, Intravenou s, ONCE, 1 dose, On Thu02/20/22 at 0645, LAURYN [facility] LORazepam (ATIVAN) injection 2 mg 02-20 11:45: 00 02-20 10:42 :00 No 2mg 2 mg, Slow IV Push, ONCE, 1 dose, On [facility] 02/20/22 at 0645, STAT [facility] ipratropium -albuteroL (DUONEB) 0.5 mg-3 mg(2.5 mg base)/3 mL nebulizer solution 3 mL 02-20 10:30: 00 02-20 09:34 :00 No 3mL 3 mL, Inhalation , ONCE, 1 dose, On Kym 02/20/22 at 0530, Routine [facility] albuterol 90 mcg/actuati on inhaler 02-20 00:00: 00 Yes [id number] 2{puff} Inhale 2 Puffs every 4 (four) hours as needed for Wheezing or Shortness of Breath. [facility] triamterene -hydrochlor othiazid 37.5-25 mg tablet 02-20 00:00: 00 Yes [id number] 1{tbl} Take 1 tablet by mouth daily. [facility] chlordiazeP OXIDE 25 mg capsule 02-20 00:00: 00 Yes [id number] 25mg Take 1 capsule by mouth every 6 (six) hours as needed for Anxiety, Agitation, Heart Rate => 100 or Detox. [facility] predniSONE 10 mg tablet 02-20 00:00: 00 02-16 00:00 :00 No [id number] TAKE ONE TABLET BY MOUTH DAILY [facility] albuterol 2.5 mg /3 mL (0.083 %) nebulizer solution 02-20 00:00: 00 02-16 00:00 :00 No [id number] 2.5mg Inhale 3 mL every 4 (four) hours. May also nebulize one extra every 6 hours. [facility] budesonide- formoteroL 160-4.5 mcg/actuati on inhaler 02-20 00:00: 00 02-16 00:00 :00 No [id number] 2{puff} Inhale 2 Puffs 2 (two) times daily. [facility] albuterol 5 mg/mL nebulizer solution 07-16 14:02: 20 Yes 2.5mg Inhale 2.5 mg every 6 (six) hours as needed for Wheezing or Shortness of Breath. [facility] budesonide- formoterol 160-4.5 mcg/actuati on inhaler 07-16 00:00: 00 Yes 2{puff} Inhale 2 Puffs 2 (two) times daily. [facility] albuterol 2.5 mg /3 mL (0.083 %) nebulizer solution 07-16 00:00: 00 Yes 2.5mg Inhale 3 mL every 4 (four) hours as needed for Wheezing or Shortness of Breath. [facility] triamterene -hydrochlor othiazide 37.5-25 mg per capsule 03-26 16:32: 14 Yes 1{capsu le} Take 1 capsule by mouth every morning. [facility] amLODIPine 10 mg tablet 03-26 16:32: 14 Yes 10mg Take 10 mg by mouth at bedtime. [facility] gabapentin 100 mg capsule 03-26 16:32: 14 Yes 100mg Take 100 mg by mouth 2 (two) times daily as needed ([facility] pain). [facility] foLIC acid 1 mg tablet 03-26 16:32: 14 Yes 1mg Take 1 mg by mouth daily. [facility] budesonide- formoterol 160-4.5 mcg/actuati on inhaler 03-26 00:00: 00 02-16 00:00 :00 No 2{puff} Inhale 2 Puffs 2 (two) times daily. [facility] Immunizations Ordered Immunization Name Filled Immunization Name Date Status Comments Source SARS-COV-2 COVID-19 PFIZER VACCINE 2021-02-03 00:00:00 Completed [facility] SARS-COV-2 COVID-19 PFIZER VACCINE 2021-02-03 00:00:00 Completed [facility] SARS-COV-2 COVID-19 PFIZER VACCINE 2021-02-03 00:00:00 Completed [facility] SARS-COV-2 COVID-19 PFIZER VACCINE 2021-01-13 00:00:00 Completed [facility] SARS-COV-2 COVID-19 PFIZER VACCINE 2021-01-13 00:00:00 Completed [facility] SARS-COV-2 COVID-19 PFIZER VACCINE 2021-01-13 00:00:00 Completed [facility] Pneumococcal Polysaccharide, PPSV23 (PNEUMOVAX) 2018-03-26 00:00:00 Completed [facility] Influenza Virus Vaccine Quad IM 3+ YRS 2018-03-26 00:00:00 Completed [facility] Pneumococcal Polysaccharide, PPSV23 (PNEUMOVAX) 2018-03-26 00:00:00 Completed [facility] Influenza Virus Vaccine Quad IM 3+ YRS 2018-03-26 00:00:00 Completed [facility] Pneumococcal Polysaccharide, PPSV23 (PNEUMOVAX) 2018-03-26 00:00:00 Completed [facility] Influenza Virus Vaccine Quad IM 3+ YRS 2018-03-26 00:00:00 Completed [facility] Pneumococcal Polysaccharide, PPSV23 (PNEUMOVAX) Unknown Completed [facility] Influenza Virus Vaccine Quad IM 3+ YRS Unknown Completed [facility] SARS-COV-2 COVID-19 PFIZER VACCINE Unknown Completed [facility] SARS-COV-2 COVID-19 PFIZER VACCINE Unknown Completed [facility] Pneumococcal Polysaccharide, PPSV23 (PNEUMOVAX) Unknown Completed [facility] Influenza Virus Vaccine Quad IM 3+ YRS Unknown Completed [facility] SARS-COV-2 COVID-19 PFIZER VACCINE Unknown Completed [facility] SARS-COV-2 COVID-19 PFIZER VACCINE Unknown Completed [facility] Pneumococcal Polysaccharide, PPSV23 (PNEUMOVAX) Unknown [facility] Influenza Virus Vaccine Quad IM 3+ YRS Unknown Completed [facility] SARS-COV-2 COVID-19 PFIZER VACCINE Unknown Completed [facility] SARS-COV-2 COVID-19 PFIZER VACCINE Unknown Completed [facility] Pneumococcal Polysaccharide, PPSV23 (PNEUMOVAX) Unknown Completed [facility] Influenza Virus Vaccine Quad IM 3+ YRS Unknown Completed [facility] SARS-COV-2 COVID-19 PFIZER VACCINE Unknown Completed [facility] SARS-COV-2 COVID-19 PFIZER VACCINE Unknown Completed [facility] Pneumococcal Polysaccharide, PPSV23 (PNEUMOVAX) Unknown Completed [facility] Influenza Virus Vaccine Quad IM 3+ YRS Unknown Completed [facility] SARS-COV-2 COVID-19 PFIZER VACCINE Unknown Completed [facility] SARS-COV-2 COVID-19 PFIZER VACCINE Unknown Completed [facility] Pneumococcal Polysaccharide, PPSV23 (PNEUMOVAX) Unknown Completed [facility] Influenza Virus Vaccine Quad IM 3+ YRS Unknown Completed [facility] SARS-COV-2 COVID-19 PFIZER VACCINE Unknown Completed [facility] SARS-COV-2 COVID-19 PFIZER VACCINE Unknown Completed [facility] Pneumococcal Polysaccharide, PPSV23 (PNEUMOVAX) Unknown Completed [facility] Influenza Virus Vaccine Quad IM 3+ YRS Unknown Completed [facility] SARS-COV-2 COVID-19 PFIZER VACCINE Unknown Completed [facility] SARS-COV-2 COVID-19 PFIZER VACCINE Unknown Completed [facility] Pneumococcal Polysaccharide, PPSV23 (PNEUMOVAX) Unknown Completed [facility] Influenza Virus Vaccine Quad IM 3+ YRS Unknown Completed [facility] SARS-COV-2 COVID-19 PFIZER VACCINE Unknown Completed [facility] SARS-COV-2 COVID-19 PFIZER VACCINE Unknown Completed [facility] Vital Signs Vital Name Observation Time Observation Value Comments S ource Systolic blood pressure 2024-02-18 01:57:00 134 mm[Hg] [facility] Diastolic blood pressure 2024-02-18 01:57:00 94 mm[Hg] [facility] Body height 2024-02-18 01:57:[address] [facility] Body weight 2024-02-18 01:57:[address] [facility] BMI 2024-02-18 01:57:00 30.04 kg/m2 [facility] Heart rate 2024-02-18 01:53:00 110 /min [facility] Body temperature 2024-02-18 01:53:00 36.61 Debbie [facility] Respiratory rate 2024-02-18 01:53:00 24 /min [facility] Oxygen saturation in Arterial blood by Pulse oximetry 2024-02-18 01:53:00 93 /min [facility] Systolic blood pressure 2024-02-09 01:54:05 150 mm[Hg] [facility] Diastolic blood pressure 2024-02-09 01:54:05 91 mm[Hg] [facility] Heart rate 2024-02-09 01:54:05 87 /min [facility] Respiratory rate 2024-02-09 01:54:05 17 /min [facility] Oxygen saturation in Arterial blood by Pulse oximetry 2024-02-09 01:54:05 93 /min [facility] Body temperature 2024-02-09 01:45:00 36.67 Debbie [facility] Body height 2024-02-09 01:45:00 162.6 cm [facility] Body weight 2024-02-09 01:45:00 81.194 kg [facility] BMI 2024-02-09 01:45:00 30.73 kg/m2 [facility] Respiratory rate 2024-02-08 21:00:00 18 /min [facility] Oxygen saturation in Arterial blood by Pulse oximetry 2024-02-08 21:00:00 96 /min [facility] Systolic blood pressure 2024-02-08 20:27:00 164 mm[Hg] [facility] Diastolic blood pressure 2024-02-08 20:27:00 90 mm[Hg] [facility] Heart rate 2024-02-08 20:27:00 83 /min [facility] Body temperature 2024-02-08 19:12:00 36.83 Debbie [facility] Body height 2024-02-08 19:12:00 162.6 cm [facility] Body weight 2024-02-08 19:12:[address] [facility] BMI 2024-02-08 19:12:00 30.73 kg/m2 [facility] Heart rate 2024-01-14 12:15:00 98 /min [facility] Body temperature 2024-01-14 12:15:00 36.56 De[facility] Respiratory rate 2024-01-14 12:15:00 14 /min [facility] Oxygen saturation in Arterial blood by Pulse oximetry 2024-01-14 12:15:00 95 /min [facility] Systolic blood pressure 2024-01-14 12:00:00 140 mm[Hg] [facility] Diastolic blood pressure 2024-01-14 12:00:00 90 mm[Hg] [facility] Body height 2024-01-14 10:51:[address] [facility] Body weight 2024-01-14 10:51:[address] [facility] BMI 2024-01-14 10:51:00 30.73 kg/m2 [facility] Systolic blood pressure 2023-12-23 05:02:00 133 mm[Hg] [facility] Diastolic blood pressure 2023-12-23 05:02:00 84 mm[Hg] [facility] Heart rate 2023-12-23 05:02:00 78 /min [facility] Body temperature 2023-12-23 05:02:00 36.17 [facility] Respiratory rate 2023-12-23 05:02:00 17 /min [facility] Oxygen saturation in Arterial blood by Pulse oximetry 2023-12-23 05:02:00 91 /min [facility] Body height 2023-12-23 03:45:[address] [facility] Body weight 2023-12-23 03:45:[address] [facility] BMI 2023-12-23 03:45:00 30.73 kg/m2 [facility] Systolic blood pressure 2023-12-22 02:08:00 143 mm[Hg] [facility] Diastolic blood pressure 2023-12-22 02:08:00 92 mm[Hg] [facility] Heart rate 2023-12-22 02:08:00 81 /min [facility] Respiratory rate 2023-12-22 02:08:00 13 /min [facility] Oxygen saturation in Arterial blood by Pulse oximetry 2023-12-22 02:08:00 95 /min [facility] Body temperature 2023-12-22 01:33:00 36.72 De[facility] Body height 2023-12-22 01:33:00 162.6 cm [facility] Body weight 2023-12-22 01:33:[address] [facility] BMI 2023-12-22 01:33:00 30.74 kg/m2 [facility] Systolic blood pressure 2023-11-11 02:00:00 127 mm[Hg] [facility] Diastolic blood pressure 2023-11-11 02:00:00 87 mm[Hg] [facility] Heart rate 2023-11-11 02:00:00 79 /min [facility] Respiratory rate 2023-11-11 02:00:00 20 /min [facility] Oxygen saturation in Arterial blood by Pulse oximetry 2023-11-11 02:00:00 98 /min [facility] Body temperature 2023-11-11 01:31:00 36.28 [facility] Body height 2023-11-11 01:31:[address] [facility] Body weight 2023-11-11 01:31:[address] [facility] BMI 2023-11-11 01:31:00 30.04 kg/m2 [facility] Systolic blood pressure 2023-10-27 06:54:00 133 mm[Hg] [facility] Diastolic blood pressure 2023-10-27 06:54:00 94 mm[Hg] [facility] Heart rate 2023-10-27 06:54:00 95 /min [facility] Body temperature 2023-10-27 06:54:00 36.44 [facility] Respiratory rate 2023-10-27 06:54:00 22 /min [facility] Body height 2023-10-27 06:54:00 162.6 cm [facility] Body weight 2023-10-27 06:54:[address] [facility] BMI 2023-10-27 06:54:00 29.70 kg/m2 [facility] Oxygen saturation in Arterial blood by Pulse oximetry 2023-10-27 06:54:00 94 /min [facility] Systolic blood pressure 2022-10-14 19:43:00 111 mm[Hg] [facility] Diastolic blood pressure 2022-10-14 19:43:00 74 mm[Hg] [facility] Heart rate 2022-10-14 19:43:00 98 /min [facility] Body temperature 2022-10-14 19:43:00 36.39 [facility] Respiratory rate 2022-10-14 19:43:00 22 /min [facility] Oxygen saturation in Arterial blood by Pulse oximetry 2022-10-14 19:43:00 94 /min [facility] Body height 2022-10-14 16:13:[address] [facility] Body weight 2022-10-14 16:13:[address] [facility] BMI 2022-10-14 16:13:00 30.90 kg/m2 [facility] Systolic blood pressure 2022-03-12 10:13:00 119 mm[Hg] [facility] Diastolic blood pressure 2022-03-12 10:13:00 75 mm[Hg] [facility] Heart rate 2022-03-12 10:13:00 105 /min [facility] Body temperature 2022-03-12 10:13:00 37.28 [facility] Respiratory rate 2022-03-12 10:13:00 19 /min [facility] Body height 2022-03-12 10:13:[address] [facility] Body weight 2022-03-12 10:13:[address] [facility] BMI 2022-03-12 10:13:00 37.76 kg/m2 [facility] Oxygen saturation in Arterial blood by Pulse oximetry 2022-03-12 10:13:00 96 /min [facility] Systolic blood pressure 2022-02-20 11:57:00 155 mm[Hg] [facility] Diastolic blood pressure 2022-02-20 11:57:00 88 mm[Hg] [facility] Heart rate 2022-02-20 11:57:00 105 /min [facility] Respiratory rate 2022-02-20 11:57:00 18 /min [facility] Oxygen saturation in Arterial blood by Pulse oximetry 2022-02-20 11:57:00 100 /min [facility] Body temperature 2022-02-20 09:25:00 37 [facility] Body height 2022-02-20 09:25:[address] [facility] Body weight 2022-02-20 09:25:[address] [facility] BMI 2022-02-20 09:25:00 36.39 kg/m2 [facility] Procedures Procedure Date / Time Performed Performing Clinician Source AC PANEL 20 + LACTIC ACID 2024-02-08 20:47:00 Christina Villarreal [facility] XR CHEST 1 VW 2024-02-08 19:47:[address] [facility] URINALYSIS 2024-02-08 19:36:00 [facility] MAGNESIUM 2024-02-08 19:25:00 [facility] TROPONIN I 2024-02-08 19:25:00 Christina Villarreal [facility] COMP. METABOLIC PANEL ([id number]) 2024-02-08 19:25:00 Christina Villarreal [facility] ETHANOL 2024-02-08 19:25:00 Christina Vill[facility]real [facility] CBC WITH DIFF 2024-02-08 19:25:[address] [facility] N-TERMINAL PRO-BNP 2024-02-08 19:25:00 Christina Villarreal [facility] EKG-12 LEAD 2024-01-14 12[facility]00[facility] 2024-01-14 11:11:00 Jac Navarro [facility] TROPONIN I 2024-01-14 11:11:00 Jac Navarro [facility] COMP. METABOLIC PANEL (39159) 2024-01-14 11:11:00 Jac Navarro [facility] ETHANOL 2024-01-14 11:11:00 Jac Navarro [facility] CBC WITH DIFF 2024-01-14 11:11:00 Jac Navarro [facility] N-TERMINAL PRO-BNP 2024-01-14 11:11:00 Jac Navarro [facility] COVID-19 (ID NOW RAPID TESTING) 2024-01-14 11:11:00 Jac Navarro [facility] CONSENT/REFUSAL FOR DIAGNOSIS AND TREATMENT 2024-01-14 10:44:32 Doctor Unassigned, [facility] LIPASE 2023-12-23 04:17:00 Tyler Rowe Un [facility] COMP. METABOLIC PANEL (08248) 2023-12-23 04:17:00 Tyler Rowe [facility] CBC WITH DIFF 2023-12-23 04:17:00 Tyler Rowe U [facility] URINALYSIS 2023-12-23 04:17:00 Tyler Rowe Un [facility] CONSENT/REFUSAL FOR DIAGNOSIS AND TREATMENT 2023-12-23 03:40:32 Doctor Unassigned, [facility] CT ABDOMEN PELVIS W CONTRAST 2023-12-22 02:31:05 Melinda Maciel [facility] LIPASE 2023-12-22 01:58:00 Melinda Maciel [facility] COMP. METABOLIC PANEL ([id number]) 2023-12-22 01:58:00 Melinda Maciel [facility] ETHANOL 2023-12-22 01:58:00 Melinda Maciel [facility] CBC WITH DIFF 2023-12-22 01:58:[address] [facility] PROTHROMBIN TIME / INR 2023-12-22 01:58[facility]23-12-22 01:58:00 Melinda Maciel [facility] CONSENT/REFUSAL FOR DIAGNOSIS AND TREATMENT 2023-12-22 01:19:14 Doctor Unassigned, [facility] NOTICE OF PRIVACY PRACTICES 2023-11-11 01:24:24 Doctor Unassigned, [facility] CONSENT/REFUSAL FOR DIAGNOSIS AND TREATMENT 2023-11-11 01:23:54 Doctor Unassigned, [facility] COVID-19 (ID NOW RAPID TESTING) 2023-10-27 07:09:00 Jac Navarro [facility] NOTICE OF PRIVACY PRACTICES 2023-10-27 06:49:48 Doctor Unassigned, [facility] CONSENT/REFUSAL FOR DIAGNOSIS AND TREATMENT 2023-10-27 06:47:40 Doctor Unassigned, [facility] CT ABDOMEN PELVIS W CONTRAST 2022-10-14 17:33:00 Melinda Maciel [facility] XR CHEST 1 VW 2022-10-14 17:10:37 Singer [facility] TROPONIN I 2022-10-14 16:37:00 Melinda Maciel [facility] COMP. METABOLIC PANEL ([id number]) 2022-10-14 16:37:00 Melinda Maciel [facility] CBC WITH DIFF 2022-10-14 16:37:[address] [facility] PROTHROMBIN TIME / INR 2022-10-14 16:37:00 Wali Maciel [facility] URINALYSIS 2022-10-14 16:37:00 Melinda Maciel [facility] N-TERMINAL PRO-BNP 2022-10-14 16:37:00 Singer [facility] CONSENT/REFUSAL FOR DIAGNOSIS AND TREATMENT 2022-10-14 15:56:36 Doctor Unassigned, [facility] CONSENT/REFUSAL FOR DIAGNOSIS AND TREATMENT 2022-03-12 10:03:12 Doctor Unassigned, [facility] XR CHEST 1 VW 2022-02-20 09:59:00 Christy [facility] LIPASE 2022-02-20 09:30:[address] [facility] TROPONIN I 2022-02-20 09:30:[address] [facility] COMP. METABOLIC PANEL (32268) 2022-02-20 09:30:00 Christy Holliday [facility] CBC WITH DIFF 2022-02-20 09:30:00 [facility] N-TERMINAL PRO-BNP 2022-02-20 09:30:00 Christy Holliday [facility] NOTICE OF PRIVACY PRACTICES 2022-02-20 09:15:02 Doctor Unassigned, [facility] CONSENT/REFUSAL FOR DIAGNOSIS AND TREATMENT 2022-02-20 09:14:47 Doctor Unassigned, [facility] Encounters Start Date/Time End Date/Time Encounter Type Admission Type Attending [facility] Facility Care Department Encounter ID Source 2024-04-14 16:30:00 2024-04-14 16:30:00 Outpatient DARIEN LOBO [id number] [facility] 2024-04-12 11:00:00 2024-04-12 11:00:00 Outpatient MINNA ORTA [id number] [facility] 2024-04-12 11:00:00 2024-04-12 11:00:00 Outpatient WENDY BROWNLEE [id number] [facility] 2024-04-12 00:00:00 2024-04-12 00:00:00 Outpatient [facility] [id number] [facility] 11:30:00 2024-04-05 11:30:00 Outpatient DARIEN LOBO [id number] [facility] 2024-04-05 00:00:00 2024-04-05 00:00:00 Outpatient DARIEN LOBO MARIA ELENA [id number] [facility] 2024-03-28 00:00:00 2024-03-28 00:00:00 Outpatient DARIEN LOBO MARIA ELENA [id number] [facility] 2024-03-15 08:30:00 2024-03-15 08:30:00 Outpatient KEMWENDY MARIA ELENA BECERRA [id number] [facility] 2024-02-17 20:58:00 2024-02-17 21:44:00 Emergency X PEG CAMP [facility] [id number] [facility] 2024-02-17 20:58:00 2024-02-17 21:44:00 Emergency Peg Camp [facility] 1.2.840.114 350.1.13.10 4.2.7.2.686 [id number] 084 [id number] [facility] 2024-02-08 20:38:00 2024-02-08 21:40:00 Emergency X DEMETRIA DAVENPORT [facility] [id number] [facility] 2024-02-08 20:38:00 2024-02-08 21:40:00 Emergency Demetria Davenport [facility] 1.2.840.114 350.1.13.10 4.2.7.2.686 [id number] 084 [id number] [facility] 2024-02-08 14:08:00 2024-02-08 17:06:00 Emergency Christina Villarreal [facility] 1.2.840.114 350.1.13.10 4.2.7.2.686 [id number] 084 [id number] [facility] 2024-01-14 04:46:00 2024-01-14 06:23:00 Emergency X TERESSA JAC [facility] [id number] [facility] 2024-01-14 04:46:00 2024-01-14 06:23:00 Emergency Jac Navarro [facility] 1.2.840.114 350.1.13.10 4.2.7.2.686 [id number] [id number] [facility] 2023-12-22 21:51:00 2023-12-22 23:13:00 Emergency X TYLER ROWE [facility] [id number] [facility] 2023-12-22 21:51:00 2023-12-22 23:13:00 Emergency AdeNi bocanegrablade [facility] 1.2.840.114 350.1.13.10 4.2.7.2.686 [id number] 084 [id number] [facility] 2023-12-21 19:36:00 2023-12-21 21:52:00 Emergency X MELINDA MACIEL [facility] [id number] [facility] 2023-12-21 19:36:00 2023-12-21 21:52:00 Emergency Melinda Maciel [facility] 1.2.840.114 350.1.13.10 4.2.7.2.686 [id number] 084 [id number] [facility] 2023-11-10 19:29:00 2023-11-10 20:14:00 Emergency X CHRISTY HOLLIDAY [facility] [id number] [facility] 2023-11-10 19:29:00 2023-11-10 20:14:00 Emergency Christy Holliday [facility] 1.2.840.114 350.1.13.10 4.2.7.2.686 [id number] 084 [id number] [facility] 2023-10-27 00:49:00 2023-10-27 01:41:00 Emergency X JAC NAVARRO [facility] [id number] [facility] 2023-10-27 00:49:00 2023-10-27 01:41:00 Emergency Jac Navarro [facility] 1.2.840.114 350.1.13.10 4.2.7.2.686 [id number] 084 [id number] [facility] 2023-07-15 00:00:00 2023-07-15 00:00:00 Outpatient PRELEE DARIEN MARIA ELENA BECERRA [id number] [facility] 2023-06-16 11:30:00 2023-06-16 11:30:00 Outpatient PRELEE, DARIEN BECERRA [id number] [facility] 2023-05-18 00:00:00 2023-05-18 00:00:00 Outpatient GROUPMARIA ELENA [id number] [facility] 2022-10-14 10:07:00 2022-10-14 14:39:00 Emergency X MELINDA MACIEL [facility] [id number] [facility] 2022-10-14 10:07:00 2022-10-14 14:39:00 Emergency Melinda Maciel [facility] 1.2.840.114 350.1.13.10 4.2.7.2.686 [id number] [id number] [facility] 2022-03-12 05:15:00 2022-03-12 06:41:00 Emergency X DEEPACHRISTY LOPEZ [facility] [id number] [facility] 2022-03-12 05:15:00 2022-03-12 06:41:00 Emergency Deepamorena Manueltera Olson [facility] 1.2.840.114 350.1.13.10 4.2.7.2.686 [id number] [id number] [facility] 2022-02-20 04:17:00 2022-02-20 07:16:00 Emergency X DEEPAMIOJORGE LCHRISTY [facility] E[facility] [id number] [facility] 2022-02-20 04:17:2022-02-20 07:16:00 Emergency Christy Holliday [facility] 1.2.840.114 350.1.13.10 4.2.7.2.686 [id number] 084 [id number] [facility] 2021-02-03 11:10:00 2021-02-03 11:10:00 Outpatient R DENISE SUNG [facility] [id number] [facility] 2021-01-13 11:20:00 2021-01-13 11:20:00 Outpatient [facility] [id number] [facility] 2020-11-10 08:20:00 2020-11-10 08:20:00 Outpatient KARLEY ESTRADA [facility] [id number] [facility] Results Test Description Test Time Test Comments Results Result Co mments Source [facility] + Lactic [id number] 20:52:47* Test Item Value Reference Range Interpretation Comme nts PH (test code = 2) 7.39 7.35-7.45 PCO2 (test code = 4467716913) 42 35-45 PO2 (test code = 8073113441) 76 80-100 L HCO3 (test code = 4785238292) 25 22-26 BE (test code = 7535175253) -0.1 -3.0-3.0 THB (test code = 8114937229) 14.3 g/dL 13.5-18.0 %O2HB (test code = 0667337865) 85.8 % 94.0-99.0 L %COHB ART (test code = 1851653231) 9.0 % 0.0-1.5 H %METHB ART (test code = 2345398111) 0.3 % 0.4-1.5 L VOL%O2 ART (test code = 3982838644) 17.3 % 15.0-23.0 NA (test code = 8865582818) 140 mmol/L 135-145 K+ (test code = 4692323322) 4.1 mmol/L 3.5-5.0 AC CA IONZ (test code = 5961631859) 4.50 mg/dL 4.50-5.30 GLUCOSE (test code = 3654490543) 105 mg/dL 70-110 LACTIC ACID (test code = 8488665136) 2.60 mmol/L 0.50-2.20 H Lab Interpretation (test cod e = 20917-8) Abnormal [facility] [id number] 20:34:14* Test Item Value Reference Range Interpretation Comme nts TROPONIN I (test code = 4161244399) 0.008 ng/mL <=0.034 LOUISE (test code = [...] of biotin. Lab Interpretation (test code = 97684-0) Normal [facility] Orw-[id number] 20:31:35* Test Item Value Reference Range Interpretation Comme nts NT-proBNP (test code = 26572-4) 188 pg/mL <=125 LOUISE (test code = LOUISE) Result Indeterminate-Consid er causes of NT-proBNP elevation other than Heart failure such as acute coronary syndrome, pulmonary embolism, pulmonary hypertension, sepsis, stroke, and renal dysfunction. Lab Interpretation (test code = 17265-4) [facility] (78591)2024-02-08 20:21:10* Test Item Value Reference Range Interpretation Comme nts NA (test code = 5956095764) 135 mmol/L 135-145 K (test code = 3999969115) 4.5 mmol/L 3.5-5.0 CL (test code = 8018051828) 100 mmol/L 98-108 CO2 TOTAL (test code = 6435240744) 22 mmol/L 23-31 L AGAP (test code = 8294065805) 13 2-16 BUN (test code = 9371865521) 8 mg/dL 7-23 GLUCOSE (test code = 2276259633) 97 mg/dL 70-110 CREATININE (test code = 2160-0) 0.65 mg/dL 0.60-1.25 TOTAL BILI (test code = 2529868516) 0.4 mg/dL 0.1-1.1 CALCIUM (test code = 9510518826) 9.4 mg/dL 8.6-10.6 T PROTEIN (test code = 6304140470) 8.2 g/dL 6.3-8.2 ALBUMIN (test code = 7561750292) 4.7 g/dL 3.5-5.0 ALK PHOS (test code = 8975427852) 76 U/L 34-122 ALTv (test code = 1742-6) 33 U/L 5-50 AST(SGOT) (test code = 6375971081) 54 U/L 13-40 H eGFR (test code = 09921-1) 111.3 mL/min/1.73m2 CKD-EPI eGFR (2020). Assuming creatinine has been stable day-to-day for at least three months, the eGFR indicates Category G1 (>= 90 mL/min/1.73 m2) Lab Interpretation (test code = 60447-9) [facility]normal [facility] HospitalMagnesium2024-04-01 20:21:10* Test Item Value Reference Range Interpretation Comme nts MAGNESIUM (test code = 3144765169) 2.1 mg/dL 1.7-2.4 Lab Interpretation (test cod e = 76661-4) Normal [facility] 1 [id number] 20:07:21EXAM: XR CHEST 1 VW COMPARISON: 01/14/2024 HISTORY: sob FINDINGS: Lungs: Slightly hyperexpanded lungswith subtle progression of interstitialprominence. Trace pleural effusions could be present. Heart/Mediastinum: Stable cardiomegaly. Bones and soft tissues: No osseous abnormality is visualized[facility] with [id number] 20:04:26* Test Item Value Reference Range Interpretation [...] 33.8 g/dL 31.2-35.0 RDW-SD (test code = 11723-5) 50.5 fL 38.5-51.6 RDW-CV (test code = 788-0) 14.3 % 12.1-15.4 PLT (test code = 777-3) 206 150-328 MPV (test code = 21476-1) 9.1 fL 9.8-13.0 L NRBC/100 WBC (test code = 0297699103) 0.0 0.0-10.0 NRBC x10^3 (test code = 6783373012) See_Comment [Automated messa ge] The system which generated this result transmitted reference range: 10*3/?L. The reference range was not used to interpret this result as normal/abnormal. GRAN MAT (NEUT) % (test code = 770-8) 81.0 % IMM GRAN % (test code = 7449096921) 1.20 % LYMPH % (test code = 736-9) 10.9 % MONO % (test code = 5905-5) 6.8 % EOS % (test code = 713-8) 0.0 % BASO % (test code = 706-2) 0.1 % GRAN MAT x10^3(ANC) (test code = 0015474003) 9.31 10*3/uL 1.99-6.95 H IMM GRAN x10^3 (test code = 8883796014) 0.14 10*3/uL 0.00-0.06 H LYMPH x10^3 (test code = 731-0) 1.25 10*3/uL 1.09-3.23 MONO x10^3 (test code = 742-7) 0.78 10*3/uL 0.36-1.02 EOS x10^3 (test code = 711-2) 0.06-0.53 L BASO x10^3 (test code = 704-7) 0.01-0.09 Lab Interpretation (test code = 48898-6) [facility]normal [facility]OLIC PANEL (45687)2023-12-23 04:53:26* Test Item Value Reference Range Interpretation Comme nts NA (test code = 0228762870) 135 mmol/L 135-145 K (test code = 1279765713) 3.2 mmol/L 3.5-5.0 L CL (test code = 4685614124) 104 mmol/L 98-108 CO2 TOTAL (test code = 3740456795) 23 mmol/L 23-31 AGAP (test code = 0418808611) 8 2-16 BUN (test code = 0317030281) 11 mg/dL 7-23 GLUCOSE (test code = 9635401223) 82 mg/dL 70-110 CREATININE (test code = 2160-0) 0.64 mg/dL 0.60-1.25 TOTAL BILI (test code = 0651460557) 0.5 mg/dL 0.1-1.1 CALCIUM (test code = 5406494863) 8.8 mg/dL 8.6-10.6 T PROTEIN (test code = 6064028836) 6.7 g/dL 6.3-8.2 ALBUMIN (test code = 7803807884) 4.1 g/dL 3.5-5.0 ALK PHOS (test code = 2321116653) 46 U/L 34-122 ALTv (test code = 1742-6) 21 U/L 5-50 AST(SGOT) (test code = 7300643840) 43 U/L 13-40 H eGFR (test code = 76064-3) 111.8 mL/min/1.73m2 CKD-EPI eGFR (2020). Assuming creatinine has been stable day-to-day for at least three months, the eGFR indicates Category G1 (>= 90 mL/min/1.73 m2) Lab Interpretation (test code = 89541-6) [facility]normal [facility] 04:53:26* Test Item Value Reference Range Interpretation Comme nts LIPASE (test code = 7177863022) 105 U/L 0-220 Lab Interpretation (test cod e = 17325-5) Normal [facility] WITH [id number] 04:34:24* Test Item Value Reference Range Interpretation [...] 33.0 g/dL 31.2-35.0 RDW-SD (test code = 41619-0) 50.9 fL 38.5-51.6 RDW-CV (test code = 788-0) 13.7 % 12.1-15.4 PLT (test code = 777-3) 232 150-328 MPV (test code = 33500-3) 8.7 fL 9.8-13.0 L NRBC/100 WBC (test code = 8715075214) 0.0 0.0-10.0 NRBC x10^3 (test code = 2427569824) See_Comment [Automated messa ge] The system which generated this result transmitted reference range: 10*3/?L. The reference range was not used to interpret this result as normal/abnormal. GRAN MAT (NEUT) % (test code = 770-8) 58.8 % IMM GRAN % (test code = 0033441885) 0.90 % LYMPH % (test code = 736-9) 27.8 % MONO % (test code = 5905-5) 10.5 % EOS % (test code = 713-8) 1.3 % BASO % (test code = 706-2) 0.7 % GRAN MAT x10^3(ANC) (test code = 6044311892) 5.68 10*3/uL 1.99-6.95 IMM GRAN x10^3 (test code = 7027767157) 0.09 10*3/uL 0.00-0.06 H LYMPH x10^3 (test code = 731-0) 2.69 10*3/uL 1.09-3.23 MONO x10^3 (test code = 742-7) 1.02 10*3/uL 0.36-1.02 EOS x10^3 (test code = 711-2) 0.13 10*3/uL 0.06-0.53 BASO x10^3 (test code = 704-7) 0.07 10*3/uL 0.01-0.09 Lab Interpretation (test code = 50843-4) [facility] W [id number] 03:32:43Exam: CT Abdomen and Pelvis With Contrast, [...] osseous abnormality.Soft tissues: Small fat-containing inguinal hernias.[facility] HospitalEthanol2024-02-13 02:32:24* Test Item Value Reference Range Interpretation Comme nts ALCOHOL (test code = 4704630860) 117 mg/dL LOUISE (test code = LOUISE) <10 Mefgldfp23-499 Toxic>100 Depression of ANIMAL CONTROL SUPERVISOR>400 Fatalities Reported [facility] Hospital[facility] Met[facility] Panel (00853)2023-12-22 02:31:43* Test Item Value Reference Range Interpretation Comme nts NA (test code = 9841445948) 133 mmol/L 135-145 L K (test code = 8217526876) 3.3 mmol/L 3.5-5.0 L CL (test code = 9983012556) 102 mmol/L 98-108 CO2 TOTAL (test code = 3462273536) 25 mmol/L 23-31 AGAP (test code = 0847012653) 6 2-16 BUN (test code = 4180607568) 11 mg/dL 7-23 GLUCOSE (test code = 2388677467) 75 mg/dL 70-110 CREATININE (test code = 7505616361) 0.51 mg/dL 0.60-1.25 L TOTAL BILI (test code = 9646633455) 0.5 mg/dL 0.1-1.1 CALCIUM (test code = 9646223496) 8.9 mg/dL 8.6-10.6 T PROTEIN (test code = 0135520772) 7.2 g/dL 6.3-8.2 ALBUMIN (test code = 4199987695) 4.5 g/dL 3.5-5.0 ALK PHOS (test code = 2046409916) 46 U/L 34-122 ALTv (test code = 1742-6) 15 U/L 5-50 AST(SGOT) (test code = 6023495212) 24 U/L 13-40 eGFR (test code = 29950-2) 119.7 mL/min/1.73m2 CKD-EPI eGFR (2020). Assuming creatinine has been stable day-to-day for at least three months, the eGFR indicates Category G1 (>= 90 mL/min/1.73 m2) Lab Interpretation (test code = 21549-7) [facility]normal [facility]2024-[facility]-13 02:31:43* Test Item Value Reference Range Interpretation Comme nts LIPASE (test code = 3154941896) 121 U/L 0-220 Lab Interpretation (test cod e = 49548-2) Normal [facility] HospitalProthrombin Time / [id number] 02:21:02* Test Item Value Reference Range Interpretation Comme [facility] PROTIME PATIENT (test code = 5964-2) 10.5 10.1-12.6 INR (test code = 6301-6) 0.9 Normal INR <1.1; Warfarin Therapeutic range 2.0 to 3.0 or 2.5 to 3.5, depending upon the indications. Lab Interpretation (test code = 24102-2) Normal [facility] with Wvrp0264-19-03 02:14:04* Test Item Value Reference Range Interpretation [...] 34.0 g/dL 31.2-35.0 RDW-SD (test code = 14823-2) 49.1 fL 38.5-51.6 RDW-CV (test code = 788-0) 13.5 % 12.1-15.4 PLT (test code = 777-3) 260 150-328 MPV (test code = 38342-4) 8.7 fL 9.8-13.0 L NRBC/100 WBC (test code = 2237365411) 0.0 0.0-10.0 NRBC x10^3 (test code = 2350336145) See_Comment [Automated messa ge] The system which generated this result transmitted reference range: 10*3/?L. The reference range was not used to interpret this result as normal/abnormal. GRAN MAT (NEUT) % (test code = 770-8) 64.3 % IMM GRAN % (test code = 8098714283) 0.90 % LYMPH % (test code = 736-9) 24.2 % MONO % (test code = 5905-5) 9.1 % EOS % (test code = 713-8) 0.7 % BASO % (test code = 706-2) 0.8 % GRAN MAT x10^3(ANC) (test code = 5116828278) 8.73 10*3/uL 1.99-6.95 H IMM GRAN x10^3 (test code = 2649841139) 0.12 10*3/uL 0.00-0.06 H LYMPH x10^3 (test code = 731-0) 3.28 10*3/uL 1.09-3.23 H MONO x10^3 (test code = 742-7) 1.23 10*3/uL 0.36-1.02 H EOS x10^3 (test code = 711-2) 0.10 10*3/uL 0.06-0.53 BASO x10^3 (test code = 704-7) 0.11 10*3/uL 0.01-0.09 H Lab Interpretation (test code = 17045-4) [id number] Test Item Value Reference Range Interpretation Comments TROPONIN I (test code = 3064876173) 0.007 ng/mL See_Comment [Automated message] The system [...] of biotin. Lab Interpretation (test code = 18333-6) [id number] 10:13:01* Test Item Value Reference Range Interpretation Comme nts NT-proBNP (test code = 4181337155) 52 pg/mL See_Comment [Automated message] The system which generated this result transmitted reference range: <=125. The reference range was not used to interpret this result as normal/abnormal. LOUIES (test code = LOUISE) Biotin has been reported to cause a negative bias, interpret results relative to patient's use of biotin. Lab Interpretation (test code = 80890-9) Normal [facility]. METABOLIC PANEL (91371)2022-02-20 10:04:02* Test Item Value Reference Range Interpretation Comme nts NA (test code = 1320756991) 137 mmol/L 135-145 K (test code = 7242398669) 3.6 mmol/L 3.5-5.0 CL (test code = 2910133523) 99 mmol/L 98-108 CO2 TOTAL (test code = 5740621180) 25 mmol/L 23-31 AGAP (test code = 8637073161) 2-16 BUN (test code = 9649926027) 6 mg/dL 7-23 L GLUCOSE (test code = 5132520279) 88 mg/dL 70-110 CREATININE (test code = 8529664117) 0.55 mg/dL 0.60-1.25 L TOTAL BILI (test code = 3723897491) 0.8 mg/dL 0.1-1.1 CALCIUM (test code = 6536509782) 8.9 mg/dL 8.6-10.6 T PROTEIN (test code = 9832125076) 7.5 g/dL 6.3-8.2 ALBUMIN (test code = 6066496952) 4.8 g/dL 3.5-5.0 ALK PHOS (test code = 7930914153) 113 U/L 34-122 ALTv (test code = 1742-6) 84 U/L 5-50 H AST(SGOT) (test code = 8275413927) 107 U/L 13-40 H eGFR (test code = 8687547318) mL/min/1.73m2 LOUISE (test code = LOUISE) Association [...] imaging tests). Lab Interpretation (test code = 66061-1) [facility]:03:21* Test Item Value Reference Range Interpretation Comme [facility] LIPASE (test code = 8899644033) 193 U/L 0-220 Lab Interpretation (test cod e = 23788-6) [facility] WBBP1061-41-14 09:39:17* Test Item Value Reference Range Interpretation Comme nts WBC (test code = 6690-2) See_Comment [Automated eParachute] The system which generated this result transmitted reference range: 4.20 - 10.70 10*3/?L. The reference range was not used to interpret this result as normal/abnormal. RBC (test code = 789-8) See_Comment [Automated eParachute] The system which generated this result transmitted [...] g/dL 31.2-35.0 H RDW-SD (test code = 90675-0) 44.4 fL 38.5-51.6 RDW-CV (test code = 788-0) 11.9 % 12.1-15.4 L PLT (test code = 777-3) See_Comment [Automated Swarm64a ge] The system which generated this result transmitted reference range: 150 - 328 10*3/?L. The reference range was not used to interpret this result as normal/abnormal. MPV (test code = 81481-9) 9.2 fL 9.8-13.0 L NRBC/100 WBC (test code = 7988159333) See_Comment [Automated [employer] ssage] The system which generated this result transmitted reference range: 0.0 - 10.0 /100 WBCs. The reference range was not used to interpret this result as normal/abnormal. NRBC x10^3 (test code = 8019220125) <0.01 See_Comment [Automated Swarm64[employer] ge] The system which generated this result transmitted reference range: 10*3/?L. The reference range was not used to interpret this result as normal/abnormal. GRAN MAT (NEUT) % (test code = 770-8) 69.9 % IMM GRAN % (test code = 7186500398) 1.50 % LYMPH % (test code = 736-9) 18.9 % MONO % (test code = 5905-5) 7.0 % EOS % (test code = 713-8) 1.9 % BASO % (test code = 706-2) 0.8 % GRAN MAT x10^3(ANC) (test code = 0402672006) 7.15 10*3/uL 1.99-6.95 H IMM GRAN x10^3 (test code = 1410409800) 0.15 10*3/uL 0.00-0.06 H LYMPH x10^3 (test code = 731-0) 1.93 10*3/uL 1.09-3.23 MONO x10^3 (test code = 742-7) 0.72 10*3/uL 0.36-1.02 EOS x10^3 (test code = 711-2) 0.19 10*3/uL 0.06-0.53 BASO x10^3 (test code = 704-7) 0.08 10*3/uL 0.01-0.09 Lab Interpretation (test code = 59554-9) [facility] Notes Date/Time Note Provider Source 2024-02-17 21:43:52 8459-01-04K89:43:52F ormatting of this note might be different from the original.No answer in lobby. 18240-9Obrjwnjqo department PocqMZ4936-13-92B57:44:07[facility] department NoteTXT1.2.840.538259.1.13.104.2.7 .2.776562|[id number] for patient yoej84246-7RqfqGCLGNDCKQRTXmfsfxue d C-CDA narrative lihc583120965Mguftt J Hoot RN[address]vd[address] 31CZDYNQQKZLCRCBVQASHMUR3181-28-68 T21:44:071.2.840.728945.1.72.3.15| 1.2.840.581541.1.13.104.2.7.2.7278 79_[id number] Angy Turner RN [facility] 2024-02-17 21:42:10 2413-15-72O96:42:10F ormatting of this note might be different from the original.Pt's blood pressure cuff and pulse ox found lying on chair. Called for patient in lobby 2 times, no answer. No one in lobby. 60181-1Axcxvtram department MrofQJ2267-02-61H85:44:10[facility] department NoteTXT1.2.840.935133.1.13.104.2.7 .2.247427|[id number] for patient tqcq85070-6CzjcRBMAZSRKPRLXoxymyqf d C-CDA narrative vbwy441484716ZlzfkSierra [address]TXTX[address] 83EYZTXWLNLCNZQRRAYQIXZD5335-11-51 T21:44:101.2.840.881061.1.72.3.15| 1.2.840.285707.1.13.104.2.7.2.7278 79_[id number] Sierra Samaniego RN [facility] 2024-02-17 21:41:09 8206-09-03J07:41:09F ormatting of this note might be different from the original.Pt not in lobby or in room. No answer in lobby. 66519-2Wpsuzhmwy department ZypbBA5548-27-83E66:41:40[facility] NoteTXT1.2.840.064596.1.13.104.2.7 .2.399887|5497988711OBBfohfhtcd for patient geqc91673-1BvkzZQGACNNQQTWNuhoedui d C-CDA narrative textUT[address] StreetTXTX[address]75 63YAPMBGWTPIDZAWVBSMSSCN9347-54-31 T21:41:401.2.840.052468.1.72.3.15| 1.2.840.379941.1.13.104.2.7.2.7278 79_[id number] [facility] 2024-02-17 21:14:29 2669-68-35X82:14:29F ormatting of this note might be different from the original.Pt not in FT01-01 and no answer in lobby. 03416-6Qaaackhuj department QvwzGZ3202-27-71H64:15:32[facility] department NoteTXT1.2.840.548154.1.13.104.2.7 .2.913077|9201925726NZGaephsywx for patient zqgb14551-2HjhjVZHCAJMRCHBNfnjdfuu d C-CDA narrative text[address]TXTX[address]75 68CQOOVUJGQJQAHMOUSIMCFT6997-60-75 T21:15:321.2.840.986367.1.72.3.15| 1.2.840.347996.1.13.104.2.7.2.7278 79_[id number] [facility] 2024-02-17 20:48:50 4095-15-39Y80:48:50F ormatting of this note might be different from the original.Pt arrives ambulatory to ED c/o SOB, right upper abdominal pain, and left leg and hip pain. Pt states that he has been on prednisone for about 5 yrs which had given him osteoporosis which is causing his leg pain. Reports hx of COPD, o2 is generally @ 91 he says. 47420-4Ggtqmfgxc department Triage hmgcJX8310-59-01U48:53:54[facility] department Triage noteTXT1.2.840.980449.1.13.104.2.7 .2.375039|5872364913PFSraqrualr for patient svoa32624-7Vtlwypibx department NoteLNNARRATIVEFormatted C-CDA narrative mdqu792429797Orqpucyee [address]FORD[address] StreetXltyRvhjeamsyHxtpwauhaCMJN55163393 38LHPHDXVOZRWTMWPIOYVLGU4444-56-03 T20:53:541.2.840.444473.1.72.3.15| 1.2.840.784598.1.13.104.2.7.2.7278 79_[id number] Leah Lizama RN [facility] 2024-02-08 21:37:56 4518-56-36R82:37:56F ormatting of this note might be different from the original.Pt left AMA 64937-6Ssnrjrcie department UmuxXX9718-11-58J59:38:11[facility] NoteTXT1.2.840.977033.1.13.104.2.7 .2.184944|8262541825IERjwzzneul for patient vcja57026-5DeqhFFXDVFKGPVNQesowzbk d C-CDA narrative guoe071252676CgamvKylie Foster RN[address]vdGalvestonGalvestonTXTX[address] 46JLXLYEYBUPVMZENSSXQCYT8539-28-39 T21:38:111.2.840.123247.1.72.3.15| 1.2.840.146804.1.13.104.2.7.2.7278 79_[id number] Kylie Foster RN [facility] 2024-02-08 21:32:00 2138-17-48Q97:32:00F ormatting of this note might be different [...] ambulatory with steady gait, [place] NAD 07021-2Jjnozoepb department VmlqVJ6817-84-48S48:40:32[facility] NoteTXT1.2.840.456134.1.13.104.2.7 .2.489590|4205692446TTGmpjyioxs for patient ibti20149-8XqluKCIMSNEDHVFQbpkbghv d C-CDA narrative [address]TXTX[address] 42USVKDTKBRUFUYCPUVERRXF0262-91-69 T21:40:321.2.840.772794.1.72.3.15| 1.2.840.198884.1.13.104.2.7.2.7278 79_[id number] [facility] 2024-02-08 20:54:38 8519-72-56Z18:54:38F ormatting of this note might be different from the original.Pt states he uses O2 at home, portable O2 is broken [address]26-6Uhhsusxxb[address] MqxjZV7177-62-05Z07:55:13[facility] NoteTXT1.2.840.218272.1.13.104.2.7 .2.056230|9687068692HJXqjregnxl for patient mjwg24807-0YassEAQYGGZRKYFIoucrivs d C-CDA narrative [address]TXTX[address] 20ESGHUQHZLHIFGDNQUQSDTD8492-37-94 T20:55:131.2.840.970157.1.72.3.15| 1.2.840.262484.1.13.104.2.7.2.7278 79_[id number] [facility] 2024-02-08 20:51:11 0602-86-14B26:51:11F ormatting of this note might be different from the original.Pt ambulates with cane 44684-4Zrsbgdube department PeaqOQ6038-99-82I80:51:26[facility] NoteTXT1.2.840.350290.1.13.104.2.7 .2.634786|6361000516HKEkrorwevg for patient rvop63511-0VmgyVBEZVBBMAWVLdcplifb d C-CDA narrative text[address]TXTX[address] 41TBIALDGZCABDPFKKDRWUIG2965-64-25 T20:51:261.2.840.106216.1.72.3.15| 1.2.840.532678.1.13.104.2.7.2.7278 79_[id number] [facility] 2024-02-08 20:43:13 6509-68-84C39:43:13F ormatting of this note might be different from the original.CC: Pt arrives SOB after leaving [place] earlier in the shift. He reports he [...] 3 BC powders and drank 3 beers." 48039-8Budkmxcoj department Triage htebRC8652-62-16O73:48:36[facility] department Triage noteTXT1.2.840.258505.1.13.104.2.7 .2.167685|5964161054LUMeaddxdei for patient duob94826-5Trsdbzrpq department NoteLNNARRATIVEFormatted C-CDA narrative xxbi734819719Qjruuf R Shehadeh RNUT[address] StreetTXTX[address] 67GAWGEKDYBCDGAJYDOMFYNX5858-17-39 T20:48:361.2.840.289684.1.72.3.15| 1.2.840.668756.1.13.104.2.7.2.7278 79_[id number] Leah King RN [facility] 2024-02-08 17:04:05 6115-91-18X55:04:05F ormatting of this note might be different [...] of the department with a steady gait. 56205-6Eqqvvnjny department VjutYG8730-91-48S24:05:22[facility] NoteTXT1.2.840.165241.1.13.104.2.7 .2.809281|8813733072NXBczgoyxbf for patient wyox59588-3CaeeVZMLADXESKDQsdxsvfb d C-CDA narrative xedj288112459Qkzq M Hayes RN[address]vdGalvestonGalvestonTXTX[address] 42ZQYMBNDKRJZMVLJFKVPYOE3753-97-64 T17:05:221.2.840.815086.1.72.3.15| 1.2.840.925569.1.13.104.2.7.2.7278 79_[id number] Allison Zhang RN [facility] 2024-02-08 14:23:02 3913-77-80O34:23:02F ormatting of this note might be different from the original.Pt ambulates with a cane 90358-5Lqnidxbub department DcouXK9057-46-61L58:23:12[facility] department NoteTXT1.2.840.873930.1.13.104.2.7 .2.908851|7296654856XEAqvtmndxs for patient iyke65370-0LimyUFTCZBUMBBHDrgjikyd d C-CDA narrative frpn099022496MpwbtKylie Foster RN[address] StreetTXTX[address] 72YZZDQVECVBCREHAGCTSDQV1898-39-49 T14:23:121.2.840.875397.1.72.3.15| 1.2.840.807805.1.13.104.2.7.2.7278 79_[id number] Kylie Foster RN [facility] 2024-02-08 14:13:15 7524-50-76U81:13:15F ormatting of this note might be different [...] only thing that helps." Face is flushed. 29588-9Drdfzczsk department Triage zsrgHM5021-93-12M96:17:26[facility] department Triage noteTXT1.2.840.037098.1.13.104.2.7 .2.882688|9305067996VSXicwzmizu for patient muuj25895-2Jnrvljmap department NoteLNNARRATIVEFormatted C-CDA narrative [id number] Fief RNUT[address] StreetTXTX[address] 11GPRRAWVTSOJRMSMDKDFMQZ9730-56-96 T14:17:261.2.840.981176.1.72.3.15| 1.2.840.069415.1.13.104.2.7.2.7278 79_[id number] Hali Aviles RN [facility] 2024-01-14 06:16:25 7671-81-16S83:16:25F ormatting of this note might be different [...] w/d, pt leaving in no apparent distress, 66822-5Pprhjwcnm department RloiTQ7115-86-85J39:17:20[facility] department NoteTXT1.2.840.895092.1.13.104.2.7 .2.350389|6298518425XOQytkajrgy for patient sdpo20819-0RuobMBOGGUOBUKRQeyuttdt d C-CDA narrative text[address] FlarLfdwhpoihWkhtfplmoPZSO31696849 86KMMFXCIPMLMSFBVGVSHUVG8409-40-53 T06:17:201.2.840.620858.1.72.3.15| 1.2.840.441336.1.13.104.2.7.2.7278 79_[id number] [facility] 2024-01-14 04:49:43 4222-62-48O78:49:43F ormatting of this note might be different [...] ext without difficulty, amb with steady gait 15591-8Wncfgyckt department Triage mjggYT3384-88-72H71:55:49[facility] department Triage noteTXT1.2.840.341119.1.13.104.2.7 .2.855984|5566568705OCUavdbhjaf for patient ckei25518-0Diedhrfjl department NoteLNNARRATIVEFormatted C-CDA narrative olfu308203066Znghqk R Shehadeh RN[address] QzsdTkkfeiztnRvzscgoeuTKVN85210892 45CIYQLJKKQIVNCSMBIQYMHU1011-55-62 T04:55:491.2.840.390344.1.72.3.15| 1.2.840.971673.1.13.104.2.7.2.7278 79_[id number] Leah King RN [facility] 2024-01-14 04:43:00 3361-45-30E46:43:00A ssociated Order(s): EKG-12 Lead ROUTINE ONCEPre-Procedure Diagnose(s): Chest pain, unspecified typePost-Procedure Diagnose(s): Chest pain, unspecified type [facility] Emergency Department NotePatient Name: Randy Edwards of : 1970 53 year old maleTreatment Room: TX1/QE1Afcbdev Record Number: [id number] Care Physician: Adrianna King Escorted by: Family [5]Mode of Arrival: Personal means [1]EMS Treatment Prior to ED 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 METABOLIC PANEL (96769) - AbnormalResult Value Ref RangeNA 138 135 [...] 49 (*) 13 - 40 U/LeGFR 93.3 mL/min/1.08n8BYM WITH DIFF - AbnormalWBC 11.59 (*) 4.20 [...] 220 U/LCOVID-19 (ID NOW RAPID TESTING) - XwqtpqSUVS-WeQ-5 Rapid ID NOW Not Detected Not DetectedETHANOLALCOHOL 62 mg/dLEKG:If EKG completed, see Procedure Note.Orders and Treatments:Orders Placed This EncounterProcedures XR CHEST 1 VW TROPONIN I COMP. METABOLIC PANEL (55883) LIPASE, SERUM CBC WITH DIFF N-Terminal Pro-Bnp Ethanol COVID-19 (ID NOW TESTING) Lab Only COVID Interpretation O2 Per ProtocolOrders Placed This EncounterMedications morpHINE (4 mg/mL) injection 4 mg ondansetron (ZOFRAN (PF)) injection 4 mg ipratropium-albuteroL (DUONEB) 0.5 mg-3 mg(2.5 mg base)/3 mL nebulizer solution 3 mLFirst Provider Eval:ED EventsDate/Time Event User Zynzcfxt30/07/24 0510 Medical Screening Begins JAC NAVARRO MD --01/14/24 0510 First Provider Evaluation JAC NAVARRO MD --ED COURSEDiagnosis/Impression as of 01/14/24 0605Chest pain, unspecified typeBronchitisProcedures:EKG-12 Lead ROUTINE ONCEDate/Time: 01/14/2024 5:24 AMPerformed by: Jac Navarro MDAuthorized by: Jac Navarro MDECG interpreted by ED Physician in the absence of a technology specialist: yesPrevious ECG:Previous ECG: Compared to currentSimilarity: No [...] on fileFollow-up:Electronically signed by:Jac Navarro MD01/14/24 0600 92588-3Grfembvzt Emergency department SgyhHY9798-90-52F34:00:50[facility] department NoteTXT1.2.840.575917.1.13.104.2.7 .2.859966|[id number] for patient lmgx80613-3Krgogsyfq[address] [place] [address] NoteLNNARRATIVEFormatted C-CDA narrative text[address] AeqkRvwyhwdrgBjatzbtwwNAWJ43371362 49YCXZHQSTRYLMOLZGLDGFAV9095-38-61 T06:00:501.2.840.958987.1.72.3.15| 1.2.840.638714.1.13.104.2.7.2.7278 79_[id number] [facility] 2023-12-22 23:12:16 6858-51-29A56:12:16F ormatting of this note might be different [...] with steady gait, in no apparent distress, 63294-4Rbiekcjbn department KuuzYZ8904-21-45L47:13:50[facility] NoteTXT1.2.840.530542.1.13.104.2.7 .2.126435|[id number] for patient vwyv23040-0KxlwHFVFOBSRHFBSovlquws d C-CDA narrative dhad609112310Vmkno E Gómez MACHUCA[address]vestonTXTX[address] 31ADJNOCLIOFYHFGUDNQYSHM0255-08-22 T23:13:501.2.840.306302.1.72.3.15| 1.2.840.015306.1.13.104.2.7.2.7278 79_[id number] Mary Machado Gómez MACHUCA [facility] 2023-12-22 21:41:55 4823-41-98T65:41:55F ormatting of this note might be different from the original.Pt arrives ambulatory to ED reporting bleeding with stools and 10/10 abdominal pain. States he was here last night but had to leave before receiving results d/t having to work. Says the pain became worse so he came back in. 95307-0Txbgasjot department Triage gkmgUV7526-46-78C87:48:52[facility] department Triage noteTXT1.2.840.452884.1.13.104.2.7 .2.616449|[id number] for patient hvdo02317-4Bmplwilat department NoteLNNARRATIVEFormatted C-CDA narrative ixjr673044733Umkfdh L Williams RN[address] StreetTXTX[address] 93IAPQMBCWTWLGFZSIHUDKFY0393-28-96 T21:48:521.2.840.154073.1.72.3.15| 1.2.840.633212.1.13.104.2.7.2.7278 79_[id number] Leah Lizama RN [facility] 2023-12-21 21:31:00 7950-52-13X46:31:00F ormatting of this note might be different [...] with steady gait, appears in no distress. 75543-8Hmnacbtdg department XcxmDA6306-19-95J61:38:39[facility] NoteTXT1.2.840.418208.1.13.104.2.7 .2.819219|6337167359XSJcmkmdnyo for patient fuov25246-9UozjPMDOGMPPGIKKkgzecje d C-CDA narrative rrxg030702024IvsgqMary Magaña RN[address]vdGalvestonGalvestonTXTX[address] 60CPZHEMKQRJKOMFJRSFVRGP7029-91-01 T21:38:391.2.840.811534.1.72.3.15| 1.2.840.267844.1.13.104.2.7.2.7278 79_[id number] Mary Magaña RN [facility] 2023-12-21 21:30:00 2912-62-03V62:30:00F ormatting of this note might be different from the original.Pt wished to leave AMA. Pt states " yall were wonderful but 3am come real early." 09836-8Zdofqbzgu department EqqfCQ6496-32-58R91:36:58[facility] department NoteTXT1.2.840.971316.1.13.104.2.7 .2.708978|0823120941WBAhdelepno for patient ovsi24905-1HxyfPGTIDOKWCLEGnxqcwxt d C-CDA narrative textUT[address] StreetTXTX[address] 55QMNOTMKXBTGXTNBCWENRXA5941-54-65 T21:36:581.2.840.860731.1.72.3.15| 1.2.840.355711.1.13.104.2.7.2.7278 79_[id number] [facility] 2023-12-21 21:26:22 4188-96-50Q17:26:22F ormatting of this note might be different from the original.Pt asking to go outside and smoke, wants to go home and eat. Pt educated on risks of leaving AMA. Provider informed pt is in pain. 77812-3Ktyrbaxjr department IoweFB4495-95-45U16:33:35[facility] department NoteTXT1.2.840.191506.1.13.104.2.7 .2.523657|1491730509BCYmmtqykja for patient bxiz65010-8VtsoOGFEBRNPICSWyzeulfq d C-CDA narrative xqgf947649267Aozprm R Shehadeh RNUT[address] StreetTXTX[address] 50IOOSGFRXIBHMEEVEZXUDDN4893-93-64 T21:33:351.2.840.448934.1.72.3.15| 1.2.840.041571.1.13.104.2.7.2.7278 79_[id number] Leah King RN [facility] 2023-12-21 19:31:50 3889-76-20Q76:31:50F ormatting of this note might be different from the original.Pt arrived ambulatory with complaints of bright red rectal bleeding and generalized abdominal pain this afternoon. Pt states his stool was normal consistency but continuous bright red blood. 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 States he vomits all the time but not something new today. 47187-2Ioimzeqsi department Triage dcijQZ8997-41-00R07:33:28[facility] department Triage noteTXT1.2.840.782789.1.13.104.2.7 .2.577815|[id number] for patient kcsg36922-6Iirrkkbab department NoteLNNARRATIVEFormatted C-CDA narrative ckee056366786Xzjyri D Roman RN[address]TXTX[address] 65LJPNSEMNOQLHULDKSPBMCV0140-60-49 T19:33:281.2.840.298382.1.72.3.15| 1.2.840.714060.1.13.104.2.7.2.7278 79_[id number] Gabi Esqueda RN [facility] 2023-11-10 20:13:39 0817-17-24I07:13:39F ormatting of this note might be different from the original.Pt requesting to leave AMA. ERP notified. Pt counseled to remain, risks of leaving AMA including discussed with pt. Pt continued to decline further ER evaluation at this time. AMA papers signed, witnessed, and placed on patient's chart. Pt left ambulatory. VS stable, no ataxia noted, GCS 15, A&Ox4. 52281-6Wanhaoevs department HpxbLF0502-64-45V25:13:52[facility] department NoteTXT1.2.840.540372.1.13.104.2.7 .2.147116|[id number] for patient sgjv56677-5HmuuZJYFYLKZVJALjlhivah d C-CDA narrative djgi484326673Lputgb R Goodrich RN[address]TXTX[address] 43BIJFVHJCMXNCWPHHKPAOLO0825-61-46 T20:13:521.2.840.411764.1.72.3.15| 1.2.840.699565.1.13.104.2.7.2.7278 79_[id number] Briseida Medrano RN [facility] 2023-11-10 19:30:29 7439-97-30N47:30:29F ormatting of this note might be different from the original.Patient arrived to ED c/o SOB and COPD exacerbation. Symptoms started this morning. Patient wears 3L NC at home. Patient is a smoker. Patient states having the chills, diarrhea, and vomiting. States having sharp pains in chest from coughing. 00125-5Vmszrxuvf department Triage qjbvWG1419-32-28G95:35:27[facility] Triage noteTXT1.2.840.345006.1.13.104.2.7 .[id number] for patient bmyp52583-1Sebktohps department NoteLNNARRATIVEFormatted C-CDA narrative [id number]-Tmhfq McInnis RN[address] C[id number] 54FJYIAOHYNRKLUZFGBGTKMQ5950-29-75 T19:35:271.2.840.302634.1.72.3.15| 1.2.840.712015.1.13.104.2.7.2.7278 [id number] Sreedhar Gomez RN [facility]
[2024-04-26] MEDS ORDERED: LORazepam 2 MG/ML VIAL ONE (01:51)
[2024-04-26] MEDS ORDERED: ALBUTEROL 2.5 MG/3 ML NEB SOL ONE (01:51)
[2024-04-26] MEDS ORDERED: METHYLPREDNISOLONE 125 MG INJ ONE (01:51)
[2024-04-26] MEDS ORDERED: KETOROLAC 30 MG/ML INJ ONE (01:52)
[2024-04-26] MEDS ORDERED: ASPIRIN 81 MG CHEWABLE TABLET ONE (01:52)
[2024-04-26 03:53] LABS: PT Prothrombin Time 10.3 SECONDS (9.5-12.5); Protime INR 0.93
[2024-04-26] MEDS ORDERED: THIAMINE 200 MG/2 ML INJ ONE (04:06)
[2024-04-26] MEDS ORDERED: MULTIVITAMINS 10 ML VIAL (INJ) IV ONE (04:07)
[2024-04-26] MEDS ORDERED: FOLIC ACID 5 MG/ML VIAL ONE (04:08)
[2024-04-26 04:09] LABS: Absolute Eosinophils 0.1 K/uL (0-0.5); Absolute Lymphocytes (CBC) 1.3 K/uL (0.7-4.9); Absolute Monocytes 0.8 K/uL (0.1-1.3); Absolute Neutrophil 10.5 K/uL (1.8-8.0); Basophils % 0.3 % (0-1.3); Eosinophils % 0.5 % (0-4.4); Hematocrit 35.4 % (39.6-49.0); Lymphocytes % 10.4 % (15.3-44.8); MCH 33.5 pg (27.0-35.0); MCV 98.8 fL (80-100); MPV 7.5 fL (7.6-11.3); Monocytes % 6.5 % (3.3-12.3); Neutrophils % 82.3 % (41.7-73.7); Platelets 277 thou/uL (152-406); RBC Red Blood Cell Count 3.58 M/uL (4.33-5.43); Red Cell Distribution Width 16.6 % (12.1-15.2)
[2024-04-26] MEDS ORDERED: NA CHLORIDE 0.9% 1,000 ML ONE (04:09)
[2024-04-26 04:16] LABS: ALT/SGPT 18 U/L (16-61); Albumin 3.1 g/dL (3.4-5.0); Albumin/Globulin Ratio 0.9 (1.1-1.8); Alkaline Phosphatase 60 U/L (45-117); Anion Gap 9.2 mEq/L (5.0-15.0); BUN Blood Urea Nitrogen 11 mg/dL (7-18); Bicarbonate 25 mEq/L (21-32); Bilirubin Total 0.3 mg/dL (0.2-1.0); Globulin 3.5 g/dL (2.3-3.5); Glomerular Filtration Rate 113 ml/min (=/>90); Glucose Level 104 mg/dL (74-106); Magnesium 2.4 mg/dL (1.6-2.4); NT PRO-BNP 303 pg/mL (<125); Potassium 3.2 mEq/L (3.5-5.1); Protein, Total 6.6 g/dL (6.4-8.2); Sodium Level 143 mEq/L (136-145); Troponin High Sensitivity 10.5 pg/mL (<58.9)
[2024-04-26 04:17] LABS: AST/SGOT < 10 U/L (15-37); Bilirubin Direct < 0.2 mg/dL (0-0.2); Bilirubin Indirect, Calculated 0.1 mg/dL (0.2-0.8)
--- NOTE | 2024-04-26 05:11 | EDPHYS ---
Physician Documentation [facility] Name: Randy Briones Age: 53 yrs Sex: Male : 1970 Arrival Date: 04/26/2024 Time: 01:00 Bed 14 Private MD: ED Physician Jose Crews HPI: 04/26 01:09 This 53 yrs old Male presents to ER via Unassigned with complaints of chest sp4 pain . 05:05 Patient is 53-year-old male presents with alcohol intoxication complains of chest pain sp4 and shortness of breath. Patient was just here on 04/25/2024 for similar complaints. Historical: - Allergies: 01:17 Lisinopril; pc2 - PMHx: 01:17 Osteoporosis; home 02 3LNC PRN; Hepatitis B (Hypertension); Hypertension; COPD; pc2 Alcoholism; - PSHx: 01:17 Amputation of left index finger; pc2 - Immunization history:: Adult Immunizations unknown. - Infectious Disease History:: Denies. - Social history:: Smoking status: Patient reports the use of cigarette tobacco products, smokes one pack cigarettes per day. - Family history:: not pertinent. ROS: 05:05 Constitutional: Negative for fever, chills, and weight loss, positive chest pain, sp4 positive short of breath, positive alcohol intoxication 05:05 All other systems are negative, Exam: 05:05 Constitutional: This is a well developed, well nourished patient who is awake, alert, sp4 dyspneic on arrival Head/Face: Normocephalic, atraumatic. Eyes: Pupils equal round and reactive to light, extra-ocular motions intact. Lids and lashes normal. Conjunctiva and sclera are not injected. Cornea within normal limits. Periorbital areas with no swelling, redness, or edema. ENT: Nares patent. No nasal discharge, no septal abnormalities noted. Tympanic membranes are normal and external auditory canals are clear. Oropharynx with no redness, swelling, or masses, exudates, or evidence of obstruction, uvula midline. Mucous membranes moist. Neck: Trachea midline, no thyromegaly or masses palpated, and no cervical lymphadenopathy. Supple, full range of motion without nuchal rigidity, or vertebral point tenderness. Chest/axilla: Normal chest wall appearance and motion. Nontender with no deformity. No lesions are appreciated. Cardiovascular: Regular rate and rhythm with a normal S1 and S2. No gallops, murmurs, or rubs. Normal PMI, no JVD. No pulse deficits. Respiratory: Lungs have equal breath sounds bilaterally, clear to auscultation and percussion. No rales, rhonchi or wheezes noted. No increased work of breathing, no retractions or nasal flaring. Abdomen/GI: Soft, with normal bowel sounds. No distension or tympany. No guarding or rebound. No evidence of tenderness throughout. Back: No spinal tenderness. No costovertebral tenderness. Skin: Warm, dry with normal turgor. Normal color with no rashes, no lesions, and no evidence of cellulitis. MS/ Extremity: Pulses equal, no cyanosis. Neurovascular intact. Full, normal range of motion. Neuro: Awake and alert, GCS 15, oriented to person, place, time, and situation. Cranial nerves II-XII grossly intact. Motor strength 5/5 in all extremities. Sensory grossly intact. Psych: Awake, alert, with orientation to person, place and time. Behavior, mood, and affect are within normal limits 05:05 ECG was reviewed by the Attending Physician. EKG at 0 211 EKG reveals sinus tachycardia, rightward axis, rate 105, no ST elevation or depression Vital Signs: 01:13 BP 97 / 69; Pulse 109; Resp 18; Temp 97.9(O); Pulse Ox 100% on 2 lpm NC; Weight 78.93 pc2 kg; Height 5 ft. 4 in. ; Pain 10/10; 01:46 BP 114 / 93; Pulse 98; Resp 18; Pulse Ox 100% ; pc2 03:00 BP 136 / 94; Pulse 102; Resp 20; Pulse Ox 97% ; pc2 04:15 BP 152 / 83; Pulse 102; Resp 20; Pulse Ox 94% on R/A; pc2 01:13 Body Mass Index 29.87 (78.93 kg, 162.56 cm) pc2 01:13 Pain Scale: Adult pc2 [place] Coma Score: 05:05 Eye Response: spontaneous(4). Motor Response: obeys commands(6). Verbal Response: sp4 oriented(5). Total: 15. MDM: 01:10 Patient medically screened. sp4 05:03 ED course: EXAM DESCRIPTION: Chest Single View CLINICAL HISTORY: 53 years Male, CHEST sp4 PAIN COMPARISON: Chest x-ray April 25, 2024 at 2:59 AM FINDINGS: No consolidation. No pneumothorax. No significant pleural effusion. Cardiomediastinal silhouette is unremarkable. Osseous structures are unremarkable. IMPRESSION: No acute findings. . ED course: EXAM DESCRIPTION: Chest Single View CLINICAL HISTORY: 53 years Male, CHEST PAIN COMPARISON: Chest x-ray April 25, 2024 at 2:59 AM FINDINGS: No consolidation. No pneumothorax. No significant pleural effusion. Cardiomediastinal silhouette is unremarkable. Osseous structures are unremarkable. IMPRESSION: No acute findings. . 05:09 Differential Diagnosis altered mental status, sepsis, flu, COPD exacerbation . Data sp4 reviewed: vital signs, nurses notes, EMS record, old medical records, lab test result(s), EKG, radiologic studies. Consideration of Admission/Observation Escalation of care including admission/observation considered. ED course: Patient felt better and decided to be released home. Patient will be given informed discharge. No prescriptions . 04/26 01:09 Order name: Basic Metabolic Panel; Complete Time: 05:02 [facility] 04/26 01:09 Order name: CBC with Diff; Complete Time: 05:02 4 04/26 01:09 Order name: LFT's; Complete Time: 05:02 [facility] 04/26 01:09 Order name: Magnesium; Complete Time: 05:02 4 04/26 01:09 Order name: NT PRO-BNP; Complete Time: 05:02 [facility] 04/26 01:09 Order name: PT-INR; Complete Time: 05:02 [facility] 04/26 01:09 Order name: Troponin HS; Complete Time: 05:02 [facility] 04/26 01:10 Order name: Alcohol Level; Complete Time: 05:02 4 04/26 01:09 Order name: XRAY Chest (1 view) [facility] 04/26 01:09 Order name: EKG; Complete Time: 01:10 [facility] 04/26 01:09 Order name: Cardiac monitoring; Complete Time: 02:16 [facility] 04/26 01:09 Order name: EKG - Nurse/Tech; Complete Time: 02:16 [facility] 04/26 01:09 Order name: IV Saline Lock; Complete Time: 04:38 [facility] 04/26 01:09 Order name: Labs collected and sent; Complete Time: 01:45 sp4 04/26 01:09 Order name: O2 Per Protocol; Complete Time: sp4 04/26 01:09 Order name: O2 Sat Monitoring; Complete Time: sp4 EC:05 Rate is 105 beats/min. Rhythm is regular, Sinus tachycardia. Right axis deviation sp4 noted. TN interval is normal. QRS interval is normal. QT interval is normal. T waves are Inverted in leads V3, V4, V5, V6. No ST changes noted. Clinical impression: No evidence of ischemia. Interpreted by me. Reviewed by me. Administered Medications: 02:03 Drug: Aspirin PO Chewable Tablet 324 mg PO once; 81 mg tablets x 4 Route: PO; pc2 02:30 Follow up: Response: No adverse reaction pc2 02:03 Drug: MethylPREDNISolone Sodium Succinate IM 125 mg IM once Route: IM; Site: left pc2 deltoid; 02:30 Follow up: Response: No adverse reaction pc2 02:03 Drug: Albuterol Inhalation 2.5 mg Inhalation every 20 minutes x3 Route: Inhalation; pc2 02:16 Drug: Albuterol Inhalation 2.5 mg Inhalation every 20 minutes x3 Route: Inhalation; pc2 02:30 Drug: Albuterol Inhalation 2.5 mg Inhalation every 20 minutes x3 Route: Inhalation; pc2 04:18 Drug: Ativan IVP 2 mg IVP once {Note: no prior IV access following multiple attempts.} pc2 Route: IVP; Site: left jugular; 04:35 Follow up: Response: No adverse reaction; RASS: Alert and Calm (0) pc2 04:18 Drug: Ketorolac IVP 30 mg IVP once Route: IVP; Site: left jugular; pc2 04:35 Follow up: Response: No adverse reaction; RASS: Alert and Calm (0) pc2 04:20 Drug: Banana Bag - (Multivitamin IV 1 amp, NS 0.9% IV 1000 ml, Thiamine IV 100 mg, pc2 foLIC Acid IVPB 1 mg) IV at calculated rate once Route: IV; Rate: calculated rate; Site: left jugular; 04:35 Follow up: Response: No adverse reaction; IV Status: Order to discontinue infusion; IV pc2 Intake: 50ml Disposition Summary: 04/26/24 05:10 Discharge Ordered Notes: Location: Home sp4 Problem: new sp4 Symptoms: have improved sp4 Condition: Stable sp4 Diagnosis - COPD/ Chronic obstructive pulmonary disease with (acute) exacerbation sp4 - Alcohol abuse with intoxication sp4 - Atypical chest pain, elevated white count sp4 Followup: sp4 - With: Private Physician - When: 7 - 10 days - Reason: Recheck today's complaints Discharge Instructions: - Discharge Summary Sheet sp4 - Chronic Obstructive Pulmonary Disease sp4 Forms: - Patient Portal Instructions sp4 Signatures: Dispatcher [employer] Jose Jacobsen MD MD sp4 Litzy pettit, RN RN pc2
--- NOTE | 2024-04-26 05:11 | ER ---
Nurse's Notes [facility] Name: Randy Briones Age: 53 yrs Sex: Male : 1970 Arrival Date: 04/26/2024 Time: 01:00 Bed 14 Private MD: Diagnosis: COPD/ Chronic obstructive pulmonary disease with (acute) exacerbation;Alcohol abuse with intoxication;Atypical chest pain, elevated white count Presentation: 04/26 01:13 Chief complaint: Patient states: SOB and chest pain from pneumonia that he's had for pc2 about 4 weeks. Coronavirus screen: Client denies travel out of the [place] in the last 14 days. At this time, the client does not indicate any symptoms associated with coronavirus-19. Ebola Screen: No symptoms or risks identified at this time. Initial Sepsis Screen: Does the patient meet any 2 criteria? HR > 90 bpm. No. Patient's initial sepsis screen is negative. Does the patient have a suspected source of infection?. Risk Assessment: Do you want to hurt yourself or someone else? Unable to obtain. Onset of symptoms is unknown. 01:13 Method Of Arrival: EMS pc2 01:13 Acuity: CANDACE 3 pc2 Triage Assessment: :18 General: Appears in no apparent distress. uncomfortable, obese, unkempt, Behavior is pc2 calm, appropriate for age. Pain: Complains of pain in chest Pain currently is 10 out of 10 on a pain scale. Quality of pain is described as sharp, Pain began weeks. EENT: No signs and/or symptoms were reported regarding the EENT system. Neuro: Level of Consciousness is awake, alert, obeys commands, Oriented to person, place, time, situation, Appropriate for age. Cardiovascular: Patient's skin is warm and dry. Respiratory: Reports shortness of breath at rest on exertion cough that is hacking, Airway is patent Respiratory effort is even, unlabored, Respiratory pattern is regular, symmetrical, Onset: The symptoms/episode began/occurred reports 4 weeks ago. Respiratory:. GI: No signs and/or symptoms were reported involving the gastrointestinal system. : No signs and/or symptoms were reported regarding the genitourinary system. Musculoskeletal: No signs and/or symptoms reported regarding the musculoskeletal system. Circulation, motion, and sensation intact. Range of motion: intact in all extremities. Historical: - Allergies: 01:17 Lisinopril; pc2 - PMHx: 01:17 Osteoporosis; home 02 3LNC PRN; Hepatitis B (Hypertension); Hypertension; COPD; pc2 Alcoholism; - PSHx: 01:17 Amputation of left index finger; pc2 - Immunization history:: Adult Immunizations unknown. - Infectious Disease History:: Denies. - Social history:: Smoking status: Patient reports the use of cigarette tobacco products, smokes one pack cigarettes per day. - Family history:: not pertinent. Screenin:22 [facility] ED Fall Risk Assessment (Adult) History of falling in the last 3 months, pc2 including since admission No falls in past 3 months (0 pts). Abuse screen: Denies threats or abuse. Denies injuries from another. Nutritional screening: No deficits noted. Tuberculosis screening: No symptoms or risk factors identified. Assessment: 01:22 Reassessment: see triage assessment. pc2 01:47 Reassessment: Labs obtained and sent. IV site not patent. Removed. Will attempt again. pc2 02:30 Reassessment: Patient appears in no apparent distress at this time. pc2 02:30 Respiratory: Respiratory effort is even, unlabored, Respiratory pattern is regular. pc2 03:45 Reassessment: No changes from previously documented assessment. IV initiated to left pc2 jugular. Labs re-drawn and sent. 04:38 General: Pt request to leave. EJ removed from the patients left side. pressure held. . kd3 04:39 Reassessment: Pt disconnected IV and insisted on walking around in parking lot despite pc2 being instructed to stay within department. Pt noted ambulating to exit. Charge nurse notified. Security called. MD notified. Pt escorted back to treatment area for IV removal. Vital Signs: 01:13 BP 97 / 69; Pulse 109; Resp 18; Temp 97.9(O); Pulse Ox 100% on 2 lpm NC; Weight 78.93 pc2 kg; Height 5 ft. 4 in. ; Pain 10/10; 01:46 BP 114 / 93; Pulse 98; Resp 18; Pulse Ox 100% ; pc2 03:00 BP 136 / 94; Pulse 102; Resp 20; Pulse Ox 97% ; pc2 04:15 BP 152 / 83; Pulse 102; Resp 20; Pulse Ox 94% on R/A; pc2 01:13 Body Mass Index 29.87 (78.93 kg, 162.56 cm) pc2 01:13 Pain Scale: Adult pc2 [place] Coma Score: 05:05 Eye Response: spontaneous(4). Motor Response: obeys commands(6). Verbal Response: sp4 oriented(5). Total: 15. ED Course: 01:02 Patient arrived in ED. kl 01:06 Litzy pettit, RN is Primary Nurse. pc2 01:09 Jose Crews MD is Attending Physician. sp4 01:17 Triage completed. pc2 01:22 Arm band placed on right wrist. pc2 01:23 Provided Education on: POC and timeframe. pc2 01:23 Patient has correct armband on for positive identification. Bed in low position. Call pc2 light in reach. Side rails up X2. 01:29 XRAY Chest (1 view) In Process Unspecified. EDMS 01:30 Client placed on continuous cardiac and pulse oximetry monitoring. NIBP monitoring pc2 applied. compliance monitor on. Pulse ox on. NIBP on. 01:47 Missed attempt(s): 20 gauge in right forearm. pc2 02:14 EKG done, by ED staff, reviewed by Jose Crews MD. pc2 03:50 Inserted saline lock: 20 gauge in left EJ, using aseptic technique. Blood collected. pc2 04:38 No provider procedures requiring assistance completed. IV discontinued, intact, pc2 bleeding controlled, No redness/swelling at site. Pressure dressing applied. Administered Medications: 02:03 Drug: Aspirin PO Chewable Tablet 324 mg PO once; 81 mg tablets x 4 Route: PO; pc2 02:30 Follow up: Response: No adverse reaction pc2 02:03 Drug: MethylPREDNISolone Sodium Succinate IM 125 mg IM once Route: IM; Site: left pc2 deltoid; 02:30 Follow up: Response: No adverse reaction pc2 02:03 Drug: Albuterol Inhalation 2.5 mg Inhalation every 20 minutes x3 Route: Inhalation; pc2 02:16 Drug: Albuterol Inhalation 2.5 mg Inhalation every 20 minutes x3 Route: Inhalation; pc2 02:30 Drug: Albuterol Inhalation 2.5 mg Inhalation every 20 minutes x3 Route: Inhalation; pc2 04:18 Drug: Ativan IVP 2 mg IVP once {Note: no prior IV access following multiple attempts.} pc2 Route: IVP; Site: left jugular; 04:35 Follow up: Response: No adverse reaction; RASS: Alert and Calm (0) pc2 04:18 Drug: Ketorolac IVP 30 mg IVP once Route: IVP; Site: left jugular; pc2 04:35 Follow up: Response: No adverse reaction; RASS: Alert and Calm (0) pc2 04:20 Drug: Banana Bag - (Multivitamin IV 1 amp, NS 0.9% IV 1000 ml, Thiamine IV 100 mg, pc2 foLIC Acid IVPB 1 mg) IV at calculated rate once Route: IV; Rate: calculated rate; Site: left jugular; 04:35 Follow up: Response: No adverse reaction; IV Status: Order to discontinue infusion; IV pc2 Intake: 50ml Medication: 01:23 VIS not applicable for this client. pc2 Intake: 04:35 IV: 50ml; Total: 50ml. pc2 Outcome: 04:44 Condition: stable pc2 05:10 Discharge ordered by . letha 05:14 Discharged to home ambulatory, ss 05:14 Instructed on Pt left prior to receiving discharge papers 05:15 Patient left the ED. ss Signatures: Dispatcher [employer] Mariely Cassidy RN RN kl Blanchard, Shelby, RN RN Polly Alex RN RN kd3 Jose Crews MD MD spLitzy galan RN RN pc2
[2024-04-26 05:26] VITALS: BP 152/83; TEMP 97.9; O2SAT 94
--- NOTE | 2024-04-26 12:12 | RAD REPORT ---
EXAM DESCRIPTION: RAD - Chest Single View - 04/26/2024 1:28 am CLINICAL HISTORY: 53 years Male, CHEST PAIN COMPARISON: Chest x-ray April 25, 2024 at 2:59 AM FINDINGS: No consolidation. No pneumothorax. No significant pleural effusion. Cardiomediastinal silhouette is unremarkable. Osseous structures are unremarkable. IMPRESSION: No acute findings. Electronically signed by: Alphonso Carter MD 04/26/2024 02:47 AM CDT RP Due to temporary technical issues with the PACS/Fluency reporting system, reports are being signed by the in house radiologists without review as a courtesy to insure prompt reporting. The interpreting radiologist is fully responsible for the content of the report.
--- NOTE | 2024-04-26 14:13 | EKG ---
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
== END 2024-04-26 05:15 | disposition home or self-care (01) ==
LOC: ER 01:00
DX: J44.1 Chronic obstructive pulmonary disease with (acute) exacerbation (principal); F10.229 Alcohol dependence with intoxication, unspecified; D72.829 Elevated white blood cell count, unspecified
CPT/HCPCS: 93005; 85025; 80048; 36415; 83735; 85610; 80076; 84484; 83880; 71045; 82077; J3411; J7613; J2919; J7030

== ENCOUNTER 2024-04-29 17:11 | Emergency (ER) | payer OTHER ==
--- OUTSIDE RECORDS SUMMARY | 2024-04-29 17:18 | XMS REPORT | Continuity of Care Document ---
Author Name Unknown Address [address] [facility] [address] [place] [address] [facility] thconnect Address [address] [facility] [address] [place] [address] Care Team Providers Care Rn Occupational Name Role Phone ADRIANNA LOPEZ Primary Care Physician Unavailab DARIEN Posey Attending Clinician Unavailable MINNA ORTA Attending Clinician Unavailab WENDY High Attending Clinician Unava SHARATH Mancera Attending Clinician Unavailable PEG CAMP Attending Clinician Unavailable Peg Camp NP Attending Clinician [phone] DEMETRIA DAVENPORT Attending Clinician UnaDemetria Carver MD Attending Clinician + Christina Victoria Attending Clinician [phone] JAC NAVARRO Attending Clinician Unavailable Jac Navarro MD Attending Clinician [phone] TYLER ROWE Attending Clinician Unavailab MELINDA Boothe Attending Clinician Unavailable Melinda Maciel DO Attending Clinician [phone] CHRISTY HOLLIDAY Attending Clinician Unavailable Christy Holliday [...] [facility] 9 [id number] 2024 00:00:00 [facility] [id number] 2023 00:00:00 2024 00:00:00 [employer] [id number] 2023 00:00:00 [employer] 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 [facility]ASC[facility] DIRECTOR 94 ON 9 [id number] 2023-01-07 00:00:00 Problems Condition Name Condition Details Condition Category Status Onset Date Resolution Date Last Treatment Date Treating Clinician Comments Source Acute exacerbati on of chronic obstructiv e pulmonary disease (COPD) Acute exacerbati on of chronic obstructiv e pulmonary disease (COPD) Disease Active 03-24 00:00: 00 [facility] Obesity (BMI 30-39.9) Obesity (BMI 30-39.9) Disease Active 03-24 00:00: 00 [facility] Allergies, Adverse Reactions, Alerts Allergy Name Allergy Type Status Severity Reaction(s) Onset Date Inactive Date Treating Clinician Comments Source Lisinopr il Propensi ty to adverse reaction s Active Anaphylaxis 03-24 00:00: 00 [facility] LISINOPR [place] DRUG INGREDI Active Anaphylaxis 03-24 00:00: 00 [facility] Social History Social Habit Start Date Stop Date Quantity Comments Source History of tobacco use Smokes tobacco daily [facility] function 2024-02-08 00:00:00 2024-02-08 00:00:00 [facility] Alcohol intake 2024-02-08 00:00:00 2024-02-08 00:00:00 4.29 /d [facility] Exposure to SARS-CoV-2 (event) 2022-10-04 00:00:00 2022-10-14 10:25:00 Not sure [facility] Tobacco use and exposure 2018-03-24 00:00:00 2018-03-24 00:00:00 User of smokeless tobacco [facility] Tobacco Comment 2018-03-24 00:00:00 2018-03-24 00:00:00 trying to quit [facility] Sex Ass[birth year] At 1970 00:00:00 1970 00:00:00 [facility] Smoking Status Start Date Stop Date Source Smokes tobacco daily 2018-03-24 00:00:00 [facility] Medications Ordered Medication Name Filled Medication Name Start Date Stop Date Current Medication? Ordering Clinician Indication Dosage Frequency Signature (SIG) Comments Components Source ketorolac (TORADOL) injection 30 mg 02-17 03:15: 00 02-17 15:14 :00 Yes 30mg 30 mg, Slow IV Push, ONCE, 1 dose, On Thu02/17/24 at 2215, Routine [facility] methylpredn isolone sod succ (SOLU-MEDRO L) injection 125 mg 02-17 03:00: 00 02-17 14:59 :00 Yes 125mg 125 mg, Intravenou s, ONCE, 1 dose, On Thu02/17/24 at 2200, 2 mL [facility] ipratropium -albuteroL (DUONEB) 0.5 mg-3 mg(2.5 mg base)/3 mL nebulizer solution 6 mL 02-17 03:00: 00 02-17 14:59 :00 Yes 6mL 6 mL, Inhalation , ONCE NOW, 1 dose, On Thu02/17/24 at 2200, Routine [facility] NaCl 0.9% (NS) bolus infusion 1,000 mL 02-17 03:00: 00 02-17 14:59 :00 Yes 1000mL at 999 mL/hr, 1,000 mL, IV Infusion, ONCE, 1 dose, On Thu02/17/24 at 2200, [facility] triamterene -hydrochlor othiazide 37.5-25 mg per capsule 02-16 20:52: 37 02-16 00:00 :00 No 1{capsu le} Take 1 capsule by mouth every morning. [facility] albuterol 5 mg/mL nebulizer solution 02-16 20:51: 42 02-16 00:00 :00 No 2.5mg Inhale 2.5 mg every 6 (six) hours as needed for Wheezing or Shortness of Breath. [facility] ketorolac (TORADOL) injection 15 mg 02-08 03:00: 00 02-08 02:21 :00 No 15mg 15 mg, Slow IV Push, ONCE, 1 dose, On Thu02/08/24 at 2200, Routine [facility] iopamidol (ISOVUE 370-500 mL) injection 100 mL 02-07 22:30: 00 02-07 22:30 :00 Yes [id number] 100mL 100 mL, Intravenou s, ONCE, 1 dose, On Thu02/08/24 at 1730, Routine [facility] ipratropium -albuteroL (DUONEB) 0.5 mg-3 mg(2.5 mg base)/3 mL nebulizer solution 3 mL 02-07 21:15: 00 02-07 20:45 :00 No 3mL 3 mL, Inhalation , ONCE, 1 dose, On Thu02/08/24 at 1615, Routine [facility] morpHINE (2 mg/mL) injection 4 mg 02-07 21:15: 00 02-07 20:27 :00 No 4mg 4 mg, Slow IV Push, ONCE, 1 dose, On Thu02/08/24 at 1615, STAT [facility] ondansetron (ZOFRAN (PF)) injection 4 mg 02-07 21:15: 00 02-07 20:22 :00 No 4mg 4 mg, Slow IV Push, ONCE, 1 dose, On Thu02/08/24 at 1615, [facility] magnesium sulfate in water 2 gram/50 mL (4 %) infusion 2 g 02-07 21:00: 00 02-07 21:30 :00 No 2g 2 g, IV Piggyback, Administer over 60 Minutes, ONCE, 1 dose, On Thu02/08/24 at 1600, [facility] ipratropium -albuteroL (DUONEB) 0.5 mg-3 mg(2.5 mg base)/3 mL nebulizer solution 3 mL 02-07 20:30: 00 02-07 19:31 :00 No 3mL 3 mL, Inhalation , ONCE, 1 dose, On Thu02/08/24 at 1530, Routine [facility] HYDROcodone -acetaminop hen (NORCO) 10-325 mg tablet 1 tablet 01-13 13:15: 00 01-13 12:15 :00 No 1{tbl} 1 tablet, Oral, ONCE, 1 dose, On Thu01/14/24 at 0715, [facility] ipratropium -albuteroL (DUONEB) 0.5 mg-3 mg(2.5 mg base)/3 mL nebulizer solution 3 mL 01-13 13:00: 00 01-13 11:53 :00 No 3mL 3 mL, Inhalation , ONCE NOW, 1 dose, On Thu01/14/24 at 0700, [facility] ondansetron (ZOFRAN (PF)) injection 4 mg 01-13 11:30: 00 01-13 11:37 :00 No 4mg 4 mg, Slow IV Push, ONCE, 1 dose, On Thu01/14/24 at 0530, [facility] morpHINE (4 mg/mL) injection 4 mg 01-13 11:30: 00 01-13 11:37 :00 No 4mg 4 mg, Slow IV Push, ONCE, 1 dose, On Thu01/14/24 at 0530, STAT [facility] azithromyci n (ZITHROMAX Z-PORTER) 250 mg tablet 01-13 00:00: 00 02-16 00:00 :00 No [id number] Take 500 mg on day 1 then 250 mg on days 2-5 [facility] predniSONE 20 mg tablet 01-13 00:00: 00 02-16 00:00 :00 No [id number] Take 1 po tid x 2 days, then take 1 po bid x 3 days, then take 1 po daily x 3 days. [facility] acetaminoph en-codeine 300-30 mg tablet 01-13 00:00: 00 01-21 04:59 :00 No [id number] 1{tbl} Take 1 tablet by mouth every 6 (six) hours as needed for Pain (scale 7-10) (severe cough) for up to 7 days. Indication s: acute pain, severe cough [facility] clonazePAM 1 mg tablet 12-26 00:00: 00 02-16 00:00 :00 No 1mg Take 1 tablet by mouth at bedtime as needed for Other (anxiety). [facility] KCL (KLOR-CON M20) tablet 40 mEq 12-23 05:00: 00 12-23 05:07 :00 No 40meq 40 mEq, Oral, ONCE, 1 dose, On Thu12/22/23 at 2300, [facility] NaCl 0.9% (NS) bolus infusion 1,000 mL 12-23 05:00: 00 12-23 05:09 :00 No 1000mL at 999 mL/hr, 1,000 mL, IV Infusion, ONCE, 1 dose, On Thu12/22/23 at 2300, [facility] ondansetron (ZOFRAN (PF)) injection 4 mg 12-23 04:30: 00 12-23 04:24 :00 No 4mg 4 mg, Slow IV Push, ONCE, 1 dose, On Thu12/22/23 at 2230, [facility] maalox:diph enhydrAMINE :lidocaine 2 % viscous 1:1:1 (FIRST-MOUT HWASH BLM) oral suspension 15 mL 12-23 04:15: 00 12-23 04:17 :00 No 15mL 15 mL, Oral, ONCE, 1 dose, On Thu12/22/23 at 2215, Routine [facility] famotidine (PEPCID (PF)) injection 20 mg 12-23 04:15: 00 12-23 04:15 :00 No 20mg 20 mg, Slow IV Push, ONCE, 1 dose, On Thu12/22/23 at 2215, [facility] HYDROcodone -acetaminop hen (NORCO) 10-325 mg tablet 1 tablet 12-22 04:30: 00 12-22 16:29 :00 No 1{tbl} 1 tablet, Oral, ONCE, 1 dose, On Thu12/21/23 at 2230, Routine [facility] pantoprazol e (PROTONIX) 80 mg in NaCl 0.9% (NS) 20 mL syringe 12-22 04:15: 00 12-22 16:14 :00 No 80mg 80 mg, IV Push, ONCE, 1 dose, On Thu12/21/23 at 2215, Administer over 2 Minutes, 20 mL [facility] iopamidol (ISOVUE 370-500 mL) injection 100 mL 12-22 03:30: 00 12-22 03:30 :00 No [id number] 100mL 100 mL, Intravenou s, ONCE, 1 dose, On Thu12/21/23 at 2130, Routine [facility] morpHINE (4 mg/mL) injection 4 mg 12-22 03:30: 00 12-22 02:16 :00 No 4mg 4 mg, Slow IV Push, ONCE, 1 dose, On Thu12/21/23 at 2130, Routine [facility] ondansetron (ZOFRAN (PF)) injection 4 mg 12-22 02:45: 00 12-22 02:02 :00 No 4mg 4 mg, Slow IV Push, ONCE, 1 dose, On Thu12/21/23 at 2045, Routine [facility] hydrocortis one 25 mg suppository 12-22 00:00: 00 Yes [id number] 25mg Insert 1 Suppositor y into rectum 2 (two) times daily as needed for Rectal itching/pa in. [facility] ondansetron 4 mg disintegrat ing tablet 12-22 00:00: 00 02-16 00:00 :00 No [id number] 4mg Take 1 tablet by mouth every 8 (eight) hours as needed for Nausea and Vomiting (N/V). [facility] amoxicillin -clavulanat e 875-125 mg per tablet 12-22 00:00: 00 01-02 05:59 :00 No [id number] 1{tbl} Take 1 tablet by mouth every 12 (twelve) hours for 10 days. [facility] methylpredn isolone sod succ (SOLU-MEDRO L) injection 125 mg 2022-11 08:45: 00 10-27 20:44 :00 No 125mg 125 mg, Slow IV Push, ONCE, 1 dose, On Thu10/27/23 at 0245, STAT [facility] ipratropium -albuteroL (DUONEB) 0.5 mg-3 mg(2.5 mg base)/3 mL nebulizer solution 3 mL 2022-11 08:45: 00 10-27 20:44 :00 No 3mL 3 mL, Inhalation , ONCE NOW, 1 dose, On Thu10/27/23 at 0245, [facility] diazePAM (VALIUM) tablet 10 mg 2022-11 07:45: 00 10-27 19:44 :00 No 10mg 10 mg, Oral, ONCE, 1 dose, On Thu10/27/23 at 0145, [facility] levoFLOXaci n (LEVAQUIN) tablet 500 mg 2022-11 07:45: 00 10-27 19:44 :00 No 500mg 500 mg, Oral, ONCE, 1 dose, On Thu10/27/23 at 0145, [facility]YN
Re ason for Anti-Infec tive: Empiric Non-Surgic al Prophylaxi s
Durat ion of therapy: Once (ED) [facility] iopamidol (ISOVUE 370-500 mL) injection 70 mL 2021-11 18:30: 00 10-14 18:30 :00 No [id number] 70mL 70 mL, Intravenou s, ONCE, 1 dose, On Thu10/14/22 at 1230, Routine [facility] methylpredn isolone sod succ (SOLU-MEDRO L) injection 125 mg 2021-11 18:00: 00 Yes 125mg 125 mg, Intravenou s, Q6H, First dose on Thu10/14/22 at 1200, Until Discontinu ed, Routine [facility] furosemide (LASIX) injection 40 mg 2021-11 17:45: 00 10-14 16:39 :00 No 40mg 40 mg, IV Push, ONCE, 1 dose, On Thu10/14/22 at 1145, [facility] ipratropium -albuteroL (DUONEB) 0.5 mg-3 mg(2.5 mg base)/3 mL nebulizer solution 3 mL 2021-11 17:30: 00 10-14 16:41 :00 No 3mL 3 mL, Inhalation , ONCE, 1 dose, On Thu10/14/22 at 1130, Routine [facility] FENTanyl PF (SUBLIMAZE (PF)) injection 50 mcg 2021-11 16:45: 00 10-14 16:39 :00 No 50ug 50 mcg, Slow IV Push, ONCE, 1 dose, On Thu10/14/22 at 1045, Routine [facility] levoFLOXaci n 750 mg tablet 2021-11 00:00: 00 02-16 00:00 :00 No [id number] 750mg Take 1 tablet by mouth every 24 (twenty-fo ur) hours. [facility] HYDROcodone -acetaminop hen (NORCO) 10-325 mg tablet 1 tablet 03-12 12:15: 00 03-12 11:21 :00 No 1{tbl} 1 tablet, Oral, ONCE, 1 dose, On Thu03/12/22 at 0715, Routine [facility] HYDROcodone -acetaminop hen 10-325 mg tablet 03-12 00:00: 00 03-20 04:59 :00 No [id number] 1{tbl} Take 1 tablet by mouth every 6 (six) hours as needed for Pain (scale 7-10) for up to 7 days. Indication s: acute pain [facility] ipratropium -albuteroL (DUONEB) 0.5 mg-3 mg(2.5 mg base)/3 mL nebulizer solution 3 mL 02-20 13:00: 00 Yes 3mL 3 mL, Inhalation , QID, First dose on Thu02/20/22 at 0800, Until Discontinu ed, Routine [facility] methylPREDN ISolone sod succ (SOLU-MEDRO L (PF)) injection 40 mg 02-20 11:45: 00 02-20 10:43 :00 No 40mg 40 mg, Intravenou s, ONCE, 1 dose, On Thu02/20/22 at 0645, STAT [facility] foLIC acid (FOLATE) tablet 1 mg 02-20 11:45: 00 02-20 10:41 :00 No 1mg 1 mg, Oral, ONCE, 1 dose, On Thu02/20/22 at 0645, [facility] thiamine (VITAMIN B1) injection 100 mg 02-20 11:45: 00 02-20 10:43 :00 No 100mg 100 mg, Intravenou s, ONCE, 1 dose, On Thu02/20/22 at 0645, [facility] LORazepam (ATIVAN) injection 2 mg 02-20 11:45: 00 02-20 10:42 :00 No 2mg 2 mg, Slow IV Push, ONCE, 1 dose, On [facility] 02/20/22 at 0645, STAT [facility] ipratropium -albuteroL (DUONEB) 0.5 mg-3 mg(2.5 mg base)/3 mL nebulizer solution 3 mL 02-20 10:30: 00 02-20 09:34 :00 No 3mL 3 mL, Inhalation , ONCE, 1 dose, On Kym 02/20/22 at 0530, Routine [facility] albuterol 90 mcg/actuati on inhaler 02-20 00:00: 00 Yes [id number] 2{puff} Inhale 2 Puffs every 4 (four) hours as needed for Wheezing or Shortness of Breath. [facility] triamterene -hydrochlor othiazid 37.5-25 mg tablet 02-20 00:00: 00 Yes [id number] 1{tbl} Take 1 tablet by mouth daily. [facility] chlordiazeP OXIDE 25 mg capsule 02-20 00:00: 00 Yes [id number] 25mg Take 1 capsule by mouth every 6 (six) hours as needed for Anxiety, Agitation, Heart Rate => 100 or Detox. [facility] predniSONE 10 mg tablet 02-20 00:00: 00 02-16 00:00 :00 No [id number] TAKE ONE TABLET BY MOUTH DAILY [facility] albuterol 2.5 mg /3 mL (0.083 %) nebulizer solution 02-20 00:00: 00 02-16 00:00 :00 No [id number] 2.5mg Inhale 3 mL every 4 (four) hours. May also nebulize one extra every 6 hours. [facility] budesonide- formoteroL 160-4.5 mcg/actuati on inhaler 02-20 00:00: 00 02-16 00:00 :00 No [id number] 2{puff} Inhale 2 Puffs 2 (two) times daily. [facility] albuterol 5 mg/mL nebulizer solution 07-16 14:02: 20 Yes 2.5mg Inhale 2.5 mg every 6 (six) hours as needed for Wheezing or Shortness of Breath. [facility] budesonide- formoterol 160-4.5 mcg/actuati on inhaler 07-16 00:00: 00 Yes 2{puff} Inhale 2 Puffs 2 (two) times daily. [facility] albuterol 2.5 mg /3 mL (0.083 %) nebulizer solution 07-16 00:00: 00 Yes 2.5mg Inhale 3 mL every 4 (four) hours as needed for Wheezing or Shortness of Breath. [facility] triamterene -hydrochlor othiazide 37.5-25 mg per capsule 03-26 16:32: 14 Yes 1{capsu le} Take 1 capsule by mouth every morning. [facility] amLODIPine 10 mg tablet 03-26 16:32: 14 Yes 10mg Take 10 mg by mouth at bedtime. [facility] gabapentin 100 mg capsule 03-26 16:32: 14 Yes 100mg Take 100 mg by mouth 2 (two) times daily as needed ([facility] pain). [facility] foLIC acid 1 mg tablet 03-26 16:32: 14 Yes 1mg Take 1 mg by mouth daily. [facility] budesonide- formoterol 160-4.5 mcg/actuati on inhaler 03-26 00:00: 00 02-16 00:00 :00 No 2{puff} Inhale 2 Puffs 2 (two) times daily. [facility] Immunizations Ordered Immunization Name Filled Immunization Name Date Status Comments Source SARS-COV-2 COVID-19 PFIZER VACCINE 2021-02-03 00:00:00 Completed [facility] SARS-COV-2 COVID-19 PFIZER VACCINE 2021-02-03 00:00:00 Completed [facility] SARS-COV-2 COVID-19 PFIZER VACCINE 2021-02-03 00:00:00 Completed [facility] SARS-COV-2 COVID-19 PFIZER VACCINE 2021-01-13 00:00:00 Completed [facility] SARS-COV-2 COVID-19 PFIZER VACCINE 2021-01-13 00:00:00 Completed [facility] SARS-COV-2 COVID-19 PFIZER VACCINE 2021-01-13 00:00:00 Completed [facility] Pneumococcal Polysaccharide, PPSV23 (PNEUMOVAX) 2018-03-26 00:00:00 Completed [facility] Influenza Virus Vaccine Quad IM 3+ YRS 2018-03-26 00:00:00 Completed [facility] Pneumococcal Polysaccharide, PPSV23 (PNEUMOVAX) 2018-03-26 00:00:00 Completed [facility] Influenza Virus Vaccine Quad IM 3+ YRS 2018-03-26 00:00:00 Completed [facility] Pneumococcal Polysaccharide, PPSV23 (PNEUMOVAX) 2018-03-26 00:00:00 Completed [facility] Influenza Virus Vaccine Quad IM 3+ YRS 2018-03-26 00:00:00 Completed [facility] Pneumococcal Polysaccharide, PPSV23 (PNEUMOVAX) Unknown Completed [facility] Influenza Virus Vaccine Quad IM 3+ YRS Unknown Completed [facility] SARS-COV-2 COVID-19 PFIZER VACCINE Unknown Completed [facility] SARS-COV-2 COVID-19 PFIZER VACCINE Unknown Completed [facility] Pneumococcal Polysaccharide, PPSV23 (PNEUMOVAX) Unknown Completed [facility] Influenza Virus Vaccine Quad IM 3+ YRS Unknown Completed [facility] SARS-COV-2 COVID-19 PFIZER VACCINE Unknown Completed [facility] SARS-COV-2 COVID-19 PFIZER VACCINE Unknown Completed [facility] Pneumococcal Polysaccharide, PPSV23 (PNEUMOVAX) Unknown [facility] Influenza Virus Vaccine Quad IM 3+ YRS Unknown Completed [facility] SARS-COV-2 COVID-19 PFIZER VACCINE Unknown Completed [facility] SARS-COV-2 COVID-19 PFIZER VACCINE Unknown Completed [facility] Pneumococcal Polysaccharide, PPSV23 (PNEUMOVAX) Unknown Completed [facility] Influenza Virus Vaccine Quad IM 3+ YRS Unknown Completed [facility] SARS-COV-2 COVID-19 PFIZER VACCINE Unknown Completed [facility] SARS-COV-2 COVID-19 PFIZER VACCINE Unknown Completed [facility] Pneumococcal Polysaccharide, PPSV23 (PNEUMOVAX) Unknown Completed [facility] Influenza Virus Vaccine Quad IM 3+ YRS Unknown Completed [facility] SARS-COV-2 COVID-19 PFIZER VACCINE Unknown Completed [facility] SARS-COV-2 COVID-19 PFIZER VACCINE Unknown Completed [facility] Pneumococcal Polysaccharide, PPSV23 (PNEUMOVAX) Unknown Completed [facility] Influenza Virus Vaccine Quad IM 3+ YRS Unknown Completed [facility] SARS-COV-2 COVID-19 PFIZER VACCINE Unknown Completed [facility] SARS-COV-2 COVID-19 PFIZER VACCINE Unknown Completed [facility] Pneumococcal Polysaccharide, PPSV23 (PNEUMOVAX) Unknown Completed [facility] Influenza Virus Vaccine Quad IM 3+ YRS Unknown Completed [facility] SARS-COV-2 COVID-19 PFIZER VACCINE Unknown Completed [facility] SARS-COV-2 COVID-19 PFIZER VACCINE Unknown Completed [facility] Pneumococcal Polysaccharide, PPSV23 (PNEUMOVAX) Unknown Completed [facility] Influenza Virus Vaccine Quad IM 3+ YRS Unknown Completed [facility] SARS-COV-2 COVID-19 PFIZER VACCINE Unknown Completed [facility] SARS-COV-2 COVID-19 PFIZER VACCINE Unknown Completed [facility] Vital Signs Vital Name Observation Time Observation Value Comments S ource Systolic blood pressure 2024-02-18 01:57:00 134 mm[Hg] [facility] Diastolic blood pressure 2024-02-18 01:57:00 94 mm[Hg] [facility] Body height 2024-02-18 01:57:00 162.6 cm [facility] Body weight 2024-02-18 01:57:00 79.379 kg [facility] BMI 2024-02-18 01:57:00 30.04 kg/m2 [facility] Heart rate 2024-02-18 01:53:00 110 /min [facility] Body temperature 2024-02-18 01:53:00 36.61 Debbie [facility] Respiratory rate 2024-02-18 01:53:00 24 /min [facility] Oxygen saturation in Arterial blood by Pulse oximetry 2024-02-18 01:53:00 93 /min [facility] Systolic blood pressure 2024-02-09 01:54:05 150 mm[Hg] [facility] Diastolic blood pressure 2024-02-09 01:54:05 91 mm[Hg] [facility] Heart rate 2024-02-09 01:54:05 87 /min [facility] Respiratory rate 2024-02-09 01:54:05 17 /min [facility] Oxygen saturation in Arterial blood by Pulse oximetry 2024-02-09 01:54:05 93 /min [facility] Body temperature 2024-02-09 01:45:00 36.67 Debbie [facility] Body height 2024-02-09 01:45:00 162.6 cm [facility] Body weight 2024-02-09 01:45:00 81.194 kg [facility] BMI 2024-02-09 01:45:00 30.73 kg/m2 [facility] Respiratory rate 2024-02-08 21:00:00 18 /min [facility] Oxygen saturation in Arterial blood by Pulse oximetry 2024-02-08 21:00:00 96 /min [facility] Systolic blood pressure 2024-02-08 20:27:00 164 mm[Hg] [facility] Diastolic blood pressure 2024-02-08 20:27:00 90 mm[Hg] [facility] Heart rate 2024-02-08 20:27:00 83 /min [facility] Body temperature 2024-02-08 19:12:00 36.83 Debbie [facility] Body height 2024-02-08 19:12:00 162.6 cm [facility] Body weight 2024-02-08 19:12:00 81.194 kg [facility] BMI 2024-02-08 19:12:00 30.73 kg/m2 [facility] Heart rate 2024-01-14 12:15:00 98 /min [facility] Body temperature 2024-01-14 12:15:00 36.56 Debbie [facility] Respiratory rate 2024-01-14 12:15:00 14 /min [facility] Oxygen saturation in Arterial blood by Pulse oximetry 2024-01-14 12:15:00 95 /min [facility] Systolic blood pressure 2024-01-14 12:00:00 140 mm[Hg] [facility] Diastolic blood pressure 2024-01-14 12:00:00 90 mm[Hg] [facility] Body height 2024-01-14 10:51:00 162.6 cm [facility] Body weight 2024-01-14 10:51:00 81.194 kg [facility] BMI 2024-01-14 10:51:00 30.73 kg/m2 [facility] Systolic blood pressure 2023-12-23 05:02:00 133 mm[Hg] [facility] Diastolic blood pressure 2023-12-23 05:02:00 84 mm[Hg] [facility] Heart rate 2023-12-23 05:02:00 78 /min [facility] Body temperature 2023-12-23 05:02:00 36.17 Debbie [facility] Respiratory rate 2023-12-23 05:02:00 17 /min [facility] Oxygen saturation in Arterial blood by Pulse oximetry 2023-12-23 05:02:00 91 /min [facility] Body height 2023-12-23 03:45:00 162.6 cm [facility] Body weight 2023-12-23 03:45:00 81.194 kg [facility] BMI 2023-12-23 03:45:00 30.73 kg/m2 [facility] Systolic blood pressure 2023-12-22 02:08:00 143 mm[Hg] [facility] Diastolic blood pressure 2023-12-22 02:08:00 92 mm[Hg] [facility] Heart rate 2023-12-22 02:08:00 81 /min [facility] Respiratory rate 2023-12-22 02:08:00 13 /min [facility] Oxygen saturation in Arterial blood by Pulse oximetry 2023-12-22 02:08:00 95 /min [facility] Body temperature 2023-12-22 01:33:00 36.72 Debbie [facility] Body height 2023-12-22 01:33:00 162.6 cm [facility] Body weight 2023-12-22 01:33:00 81.239 kg [facility] BMI 2023-12-22 01:33:00 30.74 kg/m2 [facility] Systolic blood pressure 2023-11-11 02:00:00 127 mm[Hg] [facility] Diastolic blood pressure 2023-11-11 02:00:00 87 mm[Hg] [facility] Heart rate 2023-11-11 02:00:00 79 /min [facility] Respiratory rate 2023-11-11 02:00:00 20 /min [facility] Oxygen saturation in Arterial blood by Pulse oximetry 2023-11-11 02:00:00 98 /min [facility] Body temperature 2023-11-11 01:31:00 36.28 Debbie [facility] Body height 2023-11-11 01:31:00 162.6 cm [facility] Body weight 2023-11-11 01:31:00 79.379 kg [facility] BMI 2023-11-11 01:31:00 30.04 kg/m2 [facility] Systolic blood pressure 2023-10-27 06:54:00 133 mm[Hg] [facility] Diastolic blood pressure 2023-10-27 06:54:00 94 mm[Hg] [facility] Heart rate 2023-10-27 06:54:00 95 /min [facility] Body temperature 2023-10-27 06:54:00 36.44 Debbie [facility] Respiratory rate 2023-10-27 06:54:00 22 /min [facility] Body height 2023-10-27 06:54:00 162.6 cm [facility] Body weight 2023-10-27 06:54:00 78.472 kg [facility] BMI 2023-10-27 06:54:00 29.70 kg/m2 [facility] Oxygen saturation in Arterial blood by Pulse oximetry 2023-10-27 06:54:00 94 /min [facility] Systolic blood pressure 2022-10-14 19:43:00 111 mm[Hg] [facility] Diastolic blood pressure 2022-10-14 19:43:00 74 mm[Hg] [facility] Heart rate 2022-10-14 19:43:00 98 /min [facility] Body temperature 2022-10-14 19:43:00 36.39 Debbie [facility] Respiratory rate 2022-10-14 19:43:00 22 /min [facility] Oxygen saturation in Arterial blood by Pulse oximetry 2022-10-14 19:43:00 94 /min [facility] Body height 2022-10-14 16:13:00 162.6 cm [facility] Body weight 2022-10-14 16:13:00 81.647 kg [facility] BMI 2022-10-14 16:13:00 30.90 kg/m2 [facility] Systolic blood pressure 2022-03-12 10:13:00 119 mm[Hg] [facility] Diastolic blood pressure 2022-03-12 10:13:00 75 mm[Hg] [facility] Heart rate 2022-03-12 10:13:00 105 /min [facility] Body temperature 2022-03-12 10:13:00 37.28 Debbie [facility] Respiratory rate 2022-03-12 10:13:00 19 /min [facility] Body height 2022-03-12 10:13:00 162.6 cm [facility] Body weight 2022-03-12 10:13:00 99.791 kg [facility] BMI 2022-03-12 10:13:00 37.76 kg/m2 [facility] Oxygen saturation in Arterial blood by Pulse oximetry 2022-03-12 10:13:00 96 /min [facility] Systolic blood pressure 2022-02-20 11:57:00 155 mm[Hg] [facility] Diastolic blood pressure 2022-02-20 11:57:00 88 mm[Hg] [facility] Heart rate 2022-02-20 11:57:00 105 /min [facility] Respiratory rate 2022-02-20 11:57:00 18 /min [facility] Oxygen saturation in Arterial blood by Pulse oximetry 2022-02-20 11:57:00 100 /min [facility] Body temperature 2022-02-20 09:25:00 37 Debbie [facility] Body height 2022-02-20 09:25:00 162.6 cm [facility] Body weight 2022-02-20 09:25:00 96.163 kg [facility] BMI 2022-02-20 09:25:00 36.39 kg/m2 [facility] Procedures Procedure Date / Time Performed Performing Clinician Source AC PANEL 20 + LACTIC ACID 2024-02-08 20:47:00 Christina Villarreal [facility] XR CHEST 1 VW 2024-02-08 19:47:00 Christina Villarreal [facility] URINALYSIS 2024-02-08 19:36:00 [facility] MAGNESIUM 2024-02-08 19:25:00 [facility] TROPONIN I 2024-02-08 19:25:00 Christina Villarreal [facility] COMP. METABOLIC PANEL ([id number]) 2024-02-08 19:25:00 Christina Villarreal [facility] ETHANOL 2024-02-08 19:25:00 [facility] CBC WITH DIFF 2024-02-08 19:25:00 Christina Villarreal [facility] N-TERMINAL PRO-BNP 2024-02-08 19:25:00 Christina Villarreal [facility] EKG-12 LEAD 2024-01-14 [facility]00[facility]24-[facility]-14 11:11:00 Jac Navarro [facility] TROPONIN I 2024-01-14 11:11:00 Jac Navarro [facility] COMP. METABOLIC PANEL ([id number]) 2024-01-14 11:11:00 Jac Navarro [facility] ETHANOL 2024-01-14 11:11:00 Jac Navarro [facility] CBC WITH DIFF 2024-01-14 11:11:00 Jac Navarro [facility] N-TERMINAL PRO-BNP 2024-01-14 11:11:00 Jac Navarro [facility] COVID-19 (ID NOW RAPID TESTING) 2024-01-14 11:11:00 Jac Navarro [facility] CONSENT/REFUSAL FOR DIAGNOSIS AND TREATMENT 2024-01-14 10:44:32 Doctor Unassigned, [place] [facility] LIPASE 2023-12-23 04:17:00 Tyler Rowe Un [facility] COMP. METABOLIC PANEL ([id number]) 2023-12-23 04:17:00 Tyler Rowe [facility] CBC WITH DIFF 2023-12-23 04:17:00 Tyler Rowe U [facility] URINALYSIS 2023-12-23 04:17:00 Tyler Rowe Un [facility] CONSENT/REFUSAL FOR DIAGNOSIS AND TREATMENT 2023-12-23 03:40:32 Doctor Unassigned, [place] [facility] CT ABDOMEN PELVIS W CONTRAST 2023-12-22 02:31:05 Melinda Maciel [facility] LIPASE 2023-12-22 01:58:00 Melinda Maciel [facility] COMP. METABOLIC PANEL ([id number]) 2023-12-22 01:58:00 Melinda Maciel [facility] ETHANOL 2023-12-22 01:58:00 Melinda Maciel [facility] CBC WITH DIFF 2023-12-22 01:58:00 Melinda Maciel [facility] PROTHROMBIN TIME / INR 2023-12-22 [facility]:58[facility]23-12-22 01:58:00 Melinda Maciel [facility] CONSENT/REFUSAL FOR DIAGNOSIS AND TREATMENT 2023-12-22 01:19:14 Doctor Unassigned, [place] [facility] NOTICE OF PRIVACY PRACTICES 2023-11-11 01:24:24 Doctor Unassigned, [place] [facility] CONSENT/REFUSAL FOR DIAGNOSIS AND TREATMENT 2023-11-11 01:23:54 Doctor Unassigned, [place] [facility] COVID-19 (ID NOW RAPID TESTING) 2023-10-27 07:09:00 Jac Navarro [facility] NOTICE OF PRIVACY PRACTICES 2023-10-27 06:49:48 Doctor Unassigned, [place] [facility] CONSENT/REFUSAL FOR DIAGNOSIS AND TREATMENT 2023-10-27 06:47:40 Doctor Unassigned, [place] [facility] CT ABDOMEN PELVIS W CONTRAST 2022-10-14 17:33:00 Melinda Maciel [facility] XR CHEST 1 VW 2022-10-14 17:10:37 Singer [facility] TROPONIN I 2022-10-14 16:37:00 Melinda Maciel [facility] COMP. METABOLIC PANEL ([id number]) 2022-10-14 16:37:00 Melinda Maciel [facility] CBC WITH DIFF 2022-10-14 16:37:00 Melinda Maciel [facility] PROTHROMBIN TIME / INR 2022-10-14 16:37:00 Wali Maciel [facility] URINALYSIS 2022-10-14 16:37:00 Melinda Maciel [facility] N-TERMINAL PRO-BNP 2022-10-14 16:37:00 Singer [facility] CONSENT/REFUSAL FOR DIAGNOSIS AND TREATMENT 2022-10-14 15:56:36 Doctor Unassigned, [place] [facility] CONSENT/REFUSAL FOR DIAGNOSIS AND TREATMENT 2022-03-12 10:03:12 Doctor Unassigned, [place] [facility] XR CHEST 1 VW 2022-02-20 09:59:00 Christy Holliday [facility] LIPASE 2022-02-20 09:30:00 Christy Holliday [facility] TROPONIN I 2022-02-20 09:30:00 Christy Holliday [facility] COMP. METABOLIC PANEL ([id number]) 2022-02-20 09:30:00 Christy Holliday [facility] CBC WITH DIFF 2022-02-20 09:30:00 Christy Holliday [facility] N-TERMINAL PRO-BNP 2022-02-20 09:30:00 Christy Holliday [facility] NOTICE OF PRIVACY PRACTICES 2022-02-20 09:15:02 Doctor Unassigned, [place] [facility] CONSENT/REFUSAL FOR DIAGNOSIS AND TREATMENT 2022-02-20 09:14:47 Doctor Unassigned, [place] [facility] Encounters Start Date/Time End Date/Time Encounter Type Admission Type Attending [facility] Care Facility Care Department Encounter ID Source 2024-04-14 16:30:00 2024-04-14 16:30:00 Outpatient DARIEN LOBO [id number] [facility] Elena [facility] 2024-04-12 11:00:00 2024-04-12 11:00:00 Outpatient MINNA ORTA [id number] [facility] Elena [facility] 2024-04-12 11:00:00 2024-04-12 11:00:00 Outpatient WENDY BROWNLEE [id number] [facility] 2024-04-12 00:00:00 2024-04-12 00:00:00 [id number] [facility] 11:30:00 2024-04-05 11:30:00 Outpatient DARIEN LOBO [id number] [facility] 2024-04-05 00:00:00 2024-04-05 00:00:00 Outpatient DARIEN LOBO MARIA ELENA [id number] Maria Elena [facility] 2024-03-28 00:00:00 2024-03-28 00:00:00 Outpatient DARIEN LOBO MARIA ELENA [id number] Maria Elena [facility] 2024-03-15 08:30:00 2024-03-15 08:30:00 Outpatient KEMWENDY MARIA ELENA BECERRA [id number] [facility] 2024-02-17 20:58:00 2024-02-17 21:44:00 Emergency X PEG CAMP [facility] [id number] [facility] 2024-02-17 20:58:00 2024-02-17 21:44:00 Emergency Peg Camp [facility] 1.2.840.114 350.1.13.10 4.2.7.2.686 [id number] [facility] 2024-02-08 20:38:00 2024-02-08 21:40:00 Emergency X DEMETRIA DAVENPORT [facility] ERT [id number] [facility] 2024-02-08 20:38:00 2024-02-08 21:40:00 Emergency Demetria Davenport [facility] 1.2.840.114 350.1.13.10 4.2.7.2.686 [id number] [facility] 2024-02-08 14:08:00 2024-02-08 17:06:00 Emergency Christina Villarreal [facility] 1.2.840.114 350.1.13.10 4.2.7.2.686 [id number] [facility] 2024-01-14 04:46:00 2024-01-14 06:23:00 Emergency X TERESSA JAC [facility] ERT [id number] [facility] 2024-01-14 04:46:00 2024-01-14 06:23:00 Emergency Jac Navarro [facility] 1.2.840.114 350.1.13.10 4.2.7.2.686 [id number] [facility] 2023-12-22 21:51:00 2023-12-22 23:13:00 Emergency X TYLER ROWE [facility] ERT [id number] [facility] 2023-12-22 21:51:00 2023-12-22 23:13:00 Emergency AdeNi bocanegrablade [facility] 1.2.840.114 350.1.13.10 4.2.7.2.686 [id number] [facility] 2023-12-21 19:36:00 2023-12-21 21:52:00 Emergency X MELINDA MACIEL [facility] ERT [id number] [facility] 2023-12-21 19:36:00 2023-12-21 21:52:00 Emergency Melinda Maciel [facility] 1.2.840.114 350.1.13.10 4.2.7.2.686 [id number] [id number] [facility] 2023-11-10 19:29:00 2023-11-10 20:14:00 Emergency X CHRISTY HOLLIDAY [facility] ERT [id number] [facility] 2023-11-10 19:29:00 2023-11-10 20:14:00 Emergency Christy Holliday [facility] 1.2.840.114 350.1.13.10 4.2.7.2.686 [id number] [facility] 2023-10-27 00:49:00 2023-10-27 01:41:00 Emergency X JAC NAVARRO [facility] ERT [id number] [facility] 2023-10-27 00:49:00 2023-10-27 01:41:00 Emergency Jac Navarro [facility] 1.2.840.114 350.1.13.10 4.2.7.2.686 [id number] [id number] [facility] 2023-07-15 00:00:00 2023-07-15 00:00:00 Outpatient PRELEE DARIEN MARIA ELENA BECERRA [id number] [facility] 2023-06-16 11:30:00 2023-06-16 11:30:00 Outpatient PRELEE, DARIEN BECERRA [id number] [facility] 2023-05-18 00:00:00 2023-05-18 00:00:00 Outpatient GROUPMARIA ELENA [id number] [facility] 2022-10-14 10:07:00 2022-10-14 14:39:00 Emergency X MELINDA MACIEL [facility] ERT [id number] [facility] 2022-10-14 10:07:00 2022-10-14 14:39:00 Emergency Melinda Maciel [facility] 1.2.840.114 350.1.13.10 4.2.7.2.686 [id number] [facility] 2022-03-12 05:15:00 2022-03-12 06:41:00 Emergency X DEEPACHRISTY LOPEZ [facility] ERT [id number] [facility] 2022-03-12 05:15:00 2022-03-12 06:41:00 Emergency Deepamorena Manueltera Olson [facility] 1.2.840.114 350.1.13.10 4.2.7.2.686 [id number] [facility] 2022-02-20 04:17:00 2022-02-20 07:16:00 Emergency X DEEPAMIOJORGE LCHRISTY [facility] ERT [id number] [facility] 2022-02-20 04:17:2022-02-20 07:16:00 Emergency Christy Holliday [facility] 1.2.840.114 350.1.13.10 4.2.7.2.686 [id number] [facility] 2021-02-03 11:10:00 2021-02-03 11:10:00 Outpatient R DENISE SUNG [facility] [id number] [facility] 2021-01-13 11:20:00 2021-01-13 11:20:00 Outpatient [facility] [id number] [facility] 2020-11-10 08:20:00 2020-11-10 08:20:00 Outpatient KARLEY ESTRADA [facility] [id number] [facility] Results Test Description Test Time Test Comments Results Result Co mments Source [facility] + Lactic [id number] 20:52:47* Test Item Value Reference Range Interpretation Comme nts PH (test code = 2) 7.39 7.35-7.45 PCO2 (test code = 7929575329) 42 35-45 PO2 (test code = 4335561374) 76 80-100 L HCO3 (test code = 5545246972) 25 22-26 BE (test code = 5116126173) -0.1 -3.0-3.0 THB (test code = 8656908472) 14.3 g/dL 13.5-18.0 %O2HB (test code = 1762464860) 85.8 % 94.0-99.0 L %COHB ART (test code = 9442446866) 9.0 % 0.0-1.5 H %METHB ART (test code = 4868527178) 0.3 % 0.4-1.5 L VOL%O2 ART (test code = 2083494528) 17.3 % 15.0-23.0 NA (test code = 4541043287) 140 mmol/L 135-145 K+ (test code = 3480224130) 4.1 mmol/L 3.5-5.0 AC CA IONZ (test code = 6395365404) 4.50 mg/dL 4.50-5.30 GLUCOSE (test code = 5351554252) 105 mg/dL 70-110 LACTIC ACID (test code = 6334209772) 2.60 mmol/L 0.50-2.20 H Lab Interpretation (test cod e = 47917-9) Abnormal [facility] HospitalTroponin [id number] 20:34:14* Test Item Value Reference Range Interpretation Comme nts TROPONIN I (test code = 7703224098) 0.008 ng/mL <=0.034 LOUISE (test code = [...] of biotin. Lab Interpretation (test code = 03041-2) Normal [facility]-Terminal [id number] 20:31:35* Test Item Value Reference Range Interpretation Comme nts NT-proBNP (test code = 40358-3) 188 pg/mL <=125 LOUISE (test code = LOUISE) Result Indeterminate-Consid er causes of NT-proBNP elevation other than Heart failure such as acute coronary syndrome, pulmonary embolism, pulmonary hypertension, sepsis, stroke, and renal dysfunction. Lab Interpretation (test code = 97968-3) Abnormal [facility]. Metabolic Panel (00626)2024-02-08 20:21:10* Test Item Value Reference Range Interpretation Comme nts NA (test code = 3301058391) 135 mmol/L 135-145 K (test code = 4607011266) 4.5 mmol/L 3.5-5.0 CL (test code = 7802733823) 100 mmol/L 98-108 CO2 TOTAL (test code = 6700225388) 22 mmol/L 23-31 L AGAP (test code = 5375681442) 13 2-16 BUN (test code = 0724923942) 8 mg/dL 7-23 GLUCOSE (test code = 4579578265) 97 mg/dL 70-110 CREATININE (test code = 2160-0) 0.65 mg/dL 0.60-1.25 TOTAL BILI (test code = 1406473593) 0.4 mg/dL 0.1-1.1 CALCIUM (test code = 7286566057) 9.4 mg/dL 8.6-10.6 T PROTEIN (test code = 2311284509) 8.2 g/dL 6.3-8.2 ALBUMIN (test code = 2338689972) 4.7 g/dL 3.5-5.0 ALK PHOS (test code = 2494344196) 76 U/L 34-122 ALTv (test code = 1742-6) 33 U/L 5-50 AST(SGOT) (test code = 1742285174) 54 U/L 13-40 H eGFR (test code = 16979-7) 111.3 mL/min/1.73m2 CKD-EPI eGFR (2020). Assuming creatinine has been stable day-to-day for at least three months, the eGFR indicates Category G1 (>= 90 mL/min/1.73 m2) Lab Interpretation (test code = 93229-7) Abnormal [facility] HospitalMagnesium2024-04-01 20:21:10* Test Item Value Reference Range Interpretation Comme nts MAGNESIUM (test code = 2457629486) 2.1 mg/dL 1.7-2.4 Lab Interpretation (test cod e = 57400-4) Normal [facility] CHEST 1 [id number] 20:07:21EXAM: XR CHEST 1 VW COMPARISON: 01/14/2024 HISTORY: sob FINDINGS: Lungs: Slightly hyperexpanded lungswith subtle progression of interstitialprominence. Trace pleural effusions could be present. Heart/Mediastinum: Stable cardiomegaly. Bones and soft tissues: No osseous abnormality is visualized.[facility] Cbc with [id number] 20:04:26* Test Item Value Reference Range Interpretation [...] 33.8 g/dL 31.2-35.0 RDW-SD (test code = 20854-7) 50.5 fL 38.5-51.6 RDW-CV (test code = 788-0) 14.3 % 12.1-15.4 PLT (test code = 777-3) 206 150-328 MPV (test code = 33386-2) 9.1 fL 9.8-13.0 L NRBC/100 WBC (test code = 2553329937) 0.0 0.0-10.0 NRBC x10^3 (test code = 6689560934) See_Comment [Automated messa ge] The system which generated this result transmitted reference range: 10*3/?L. The reference range was not used to interpret this result as normal/abnormal. GRAN MAT (NEUT) % (test code = 770-8) 81.0 % IMM GRAN % (test code = 7356651942) 1.20 % LYMPH % (test code = 736-9) 10.9 % MONO % (test code = 5905-5) 6.8 % EOS % (test code = 713-8) 0.0 % BASO % (test code = 706-2) 0.1 % GRAN MAT x10^3(ANC) (test code = 4101724914) 9.31 10*3/uL 1.99-6.95 H IMM GRAN x10^3 (test code = 6348961080) 0.14 10*3/uL 0.00-0.06 H LYMPH x10^3 (test code = 731-0) 1.25 10*3/uL 1.09-3.23 MONO x10^3 (test code = 742-7) 0.78 10*3/uL 0.36-1.02 EOS x10^3 (test code = 711-2) 0.06-0.53 L BASO x10^3 (test code = 704-7) 0.01-0.09 Lab Interpretation (test code = 85734-7) Abnormal [facility]. METABOLIC PANEL (53947)2023-12-23 04:53:26* Test Item Value Reference Range Interpretation Comme nts NA (test code = 4843347969) 135 mmol/L 135-145 K (test code = 9033157939) 3.2 mmol/L 3.5-5.0 L CL (test code = 0759271764) 104 mmol/L 98-108 CO2 TOTAL (test code = 3954543165) 23 mmol/L 23-31 AGAP (test code = 5509396997) 8 2-16 BUN (test code = 7807499604) 11 mg/dL 7-23 GLUCOSE (test code = 0854032340) 82 mg/dL 70-110 CREATININE (test code = 2160-0) 0.64 mg/dL 0.60-1.25 TOTAL BILI (test code = 5069811406) 0.5 mg/dL 0.1-1.1 CALCIUM (test code = 4045507475) 8.8 mg/dL 8.6-10.6 T PROTEIN (test code = 9854942411) 6.7 g/dL 6.3-8.2 ALBUMIN (test code = 6680588331) 4.1 g/dL 3.5-5.0 ALK PHOS (test code = 0240031808) 46 U/L 34-122 ALTv (test code = 1742-6) 21 U/L 5-50 AST(SGOT) (test code = 0997517281) 43 U/L 13-40 H eGFR (test code = 73820-9) 111.8 mL/min/1.73m2 CKD-EPI eGFR (2020). Assuming creatinine has been stable day-to-day for at least three months, the eGFR indicates Category G1 (>= 90 mL/min/1.73 m2) Lab Interpretation (test code = 81930-6) Abnormal [facility] HospitalLIPASE2024-02-14 04:53:26* Test Item Value Reference Range Interpretation Comme nts LIPASE (test code = 8889251894) 105 U/L 0-220 Lab Interpretation (test cod e = 42517-6) Normal [facility] WITH [id number] 04:34:24* Test Item Value Reference Range Interpretation [...] 33.0 g/dL 31.2-35.0 RDW-SD (test code = 17954-0) 50.9 fL 38.5-51.6 RDW-CV (test code = 788-0) 13.7 % 12.1-15.4 PLT (test code = 777-3) 232 150-328 MPV (test code = 50036-3) 8.7 fL 9.8-13.0 L NRBC/100 WBC (test code = 6692249034) 0.0 0.0-10.0 NRBC x10^3 (test code = 5918426329) See_Comment [Automated messa ge] The system which generated this result transmitted reference range: 10*3/?L. The reference range was not used to interpret this result as normal/abnormal. GRAN MAT (NEUT) % (test code = 770-8) 58.8 % IMM GRAN % (test code = 5463347351) 0.90 % LYMPH % (test code = 736-9) 27.8 % MONO % (test code = 5905-5) 10.5 % EOS % (test code = 713-8) 1.3 % BASO % (test code = 706-2) 0.7 % GRAN MAT x10^3(ANC) (test code = 0948056528) 5.68 10*3/uL 1.99-6.95 IMM GRAN x10^3 (test code = 7737727943) 0.09 10*3/uL 0.00-0.06 H LYMPH x10^3 (test code = 731-0) 2.69 10*3/uL 1.09-3.23 MONO x10^3 (test code = 742-7) 1.02 10*3/uL 0.36-1.02 EOS x10^3 (test code = 711-2) 0.13 10*3/uL 0.06-0.53 BASO x10^3 (test code = 704-7) 0.07 10*3/uL 0.01-0.09 Lab Interpretation (test code = 49213-3) Abnormal [facility] ABDOMEN PELVIS W [id number] 03:32:43Exam: CT Abdomen and Pelvis With Contrast, [...] acute osseous abnormality.Soft tissues: Small fat-containing inguinal hernias.[facility] HospitalEthanol2024-02-13 02:32:24* Test Item Value Reference Range Interpretation Comme nts ALCOHOL (test code = 8768650134) 117 mg/dL LOUISE (test code = LOUISE) <10 Glkjpdpf48-513 Toxic>100 Depression of PATENT EXAMINER>400 Fatalities Reported [facility] HospitalCom. Metabolic Panel (19856)2023-12-22 02:31:43* Test Item Value Reference Range Interpretation Comme nts NA (test code = 1903670863) 133 mmol/L 135-145 L K (test code = 0810891640) 3.3 mmol/L 3.5-5.0 L CL (test code = 3636181332) 102 mmol/L 98-108 CO2 TOTAL (test code = 3693577211) 25 mmol/L 23-31 AGAP (test code = 5408136668) 6 2-16 BUN (test code = 9226432126) 11 mg/dL 7-23 GLUCOSE (test code = 0147973285) 75 mg/dL 70-110 CREATININE (test code = 2954705041) 0.51 mg/dL 0.60-1.25 L TOTAL BILI (test code = 0324682581) 0.5 mg/dL 0.1-1.1 CALCIUM (test code = 0184670028) 8.9 mg/dL 8.6-10.6 T PROTEIN (test code = 3537428472) 7.2 g/dL 6.3-8.2 ALBUMIN (test code = 1739761799) 4.5 g/dL 3.5-5.0 ALK PHOS (test code = 0977658950) 46 U/L 34-122 ALTv (test code = 1742-6) 15 U/L 5-50 AST(SGOT) (test code = 6734388838) 24 U/L 13-40 eGFR (test code = 21863-5) 119.7 mL/min/1.73m2 CKD-EPI eGFR (2020). Assuming creatinine has been stable day-to-day for at least three months, the eGFR indicates Category G1 (>= 90 mL/min/1.73 m2) Lab Interpretation (test code = 23704-5) [facility]:31:43* Test Item Value Reference Range Interpretation Comme nts LIPASE (test code = 3666868915) 121 U/L 0-220 Lab Interpretation (test cod e = 91348-4) Normal [facility] / [id number] 02:21:02* Test Item Value Reference Range Interpretation Comme [facility] PROTIME PATIENT (test code = 5964-2) 10.5 10.1-12.6 INR (test code = 6301-6) 0.9 Normal INR <1.1; Warfarin Therapeutic range 2.0 to 3.0 or 2.5 to 3.5, depending upon the indications. Lab Interpretation (test code = 34482-1) Normal [facility] with [id number] 02:14:04* Test Item Value Reference Range Interpretation [...] 34.0 g/dL 31.2-35.0 RDW-SD (test code = 52651-1) 49.1 fL 38.5-51.6 RDW-CV (test code = 788-0) 13.5 % 12.1-15.4 PLT (test code = 777-3) 260 150-328 MPV (test code = 89210-7) 8.7 fL 9.8-13.0 L NRBC/100 WBC (test code = 6094409589) 0.0 0.0-10.0 NRBC x10^3 (test code = 1463125876) See_Comment [Automated messa ge] The system which generated this result transmitted reference range: 10*3/?L. The reference range was not used to interpret this result as normal/abnormal. GRAN MAT (NEUT) % (test code = 770-8) 64.3 % IMM GRAN % (test code = 1911296623) 0.90 % LYMPH % (test code = 736-9) 24.2 % MONO % (test code = 5905-5) 9.1 % EOS % (test code = 713-8) 0.7 % BASO % (test code = 706-2) 0.8 % GRAN MAT x10^3(ANC) (test code = 7368664510) 8.73 10*3/uL 1.99-6.95 H IMM GRAN x10^3 (test code = 4130646015) 0.12 10*3/uL 0.00-0.06 H LYMPH x10^3 (test code = 731-0) 3.28 10*3/uL 1.09-3.23 H MONO x10^3 (test code = 742-7) 1.23 10*3/uL 0.36-1.02 H EOS x10^3 (test code = 711-2) 0.10 10*3/uL 0.06-0.53 BASO x10^3 (test code = 704-7) 0.11 10*3/uL 0.01-0.09 H Lab Interpretation (test code = 55983-7) Abnormal [facility] M2932-50-40 10:16:22* Test Item Value Reference Range Interpretation Comments TROPONIN I (test code = 8217585837) 0.007 ng/mL See_Comment [Automated message] The system [...] of biotin. Lab Interpretation (test code = 44696-2) Normal [facility]MINAL SWG-QVD7285-21-14 10:13:01* Test Item Value Reference Range Interpretation Comme nts NT-proBNP (test code = 2755500359) 52 pg/mL See_Comment [Automated message] The system which generated this result transmitted reference range: <=125. The reference range was not used to interpret this result as normal/abnormal. LOUISE (test code = LOUISE) Biotin has been reported to cause a negative bias, interpret results relative to patient's use of biotin. Lab Interpretation (test code = 27093-7) Normal [facility]. METABOLIC PANEL (28461)2022-02-20 10:04:02* Test Item Value Reference Range Interpretation Comme nts NA (test code = 7543868633) 137 mmol/L 135-145 K (test code = 0400356491) 3.6 mmol/L 3.5-5.0 CL (test code = 4769755810) 99 mmol/L 98-108 CO2 TOTAL (test code = 6217058040) 25 mmol/L 23-31 AGAP (test code = 6693640872) 2-16 BUN (test code = 6032326029) 6 mg/dL 7-23 L GLUCOSE (test code = 0130646534) 88 mg/dL 70-110 CREATININE (test code = 7329831636) 0.55 mg/dL 0.60-1.25 L TOTAL BILI (test code = 9420780352) 0.8 mg/dL 0.1-1.1 CALCIUM (test code = 8909927679) 8.9 mg/dL 8.6-10.6 T PROTEIN (test code = 4758747894) 7.5 g/dL 6.3-8.2 ALBUMIN (test code = 2336444062) 4.8 g/dL 3.5-5.0 ALK PHOS (test code = 6730067838) 113 U/L 34-122 ALTv (test code = 1742-6) 84 U/L 5-50 H AST(SGOT) (test code = 5709167603) 107 U/L 13-40 H eGFR (test code = 4878474070) mL/min/1.73m2 LOUISE (test code = LOUISE) Association [...] imaging tests). Lab Interpretation (test code = 16367-5) Abnormal [facility] HospitalLIPASE, NZMOT6257-82-51 10:03:21* Test Item Value Reference Range Interpretation Comme [facility] LIPASE (test code = 4537531673) 193 U/L 0-220 Lab Interpretation (test cod e = 25554-4) Normal [facility] HospitalCBC WITH BSHJ2478-88-49 09:39:17* Test Item Value Reference Range Interpretation Comme nts WBC (test code = 6690-2) See_Comment [Automated [employer]] The system which generated this result transmitted reference range: 4.20 - 10.70 10*3/?L. The reference range was not used to interpret this result as normal/abnormal. RBC (test code = 789-8) See_Comment [Automated [employer]] The system which generated this result transmitted [...] g/dL 31.2-35.0 H RDW-SD (test code = 44360-9) 44.4 fL 38.5-51.6 RDW-CV (test code = 788-0) 11.9 % 12.1-15.4 L PLT (test code = 777-3) See_Comment [Automated [employer]a ge] The system which generated this result transmitted reference range: 150 - 328 10*3/?L. The reference range was not used to interpret this result as normal/abnormal. MPV (test code = 38247-9) 9.2 fL 9.8-13.0 L NRBC/100 WBC (test code = 7355600411) See_Comment [Automated [employer] ssage] The system which generated this result transmitted reference range: 0.0 - 10.0 /100 WBCs. The reference range was not used to interpret this result as normal/abnormal. NRBC x10^3 (test code = 4809242006) <0.01 See_Comment [Automated [employer] ge] The system which generated this result transmitted reference range: 10*3/?L. The reference range was not used to interpret this result as normal/abnormal. GRAN MAT (NEUT) % (test code = 770-8) 69.9 % IMM GRAN % (test code = 3305913231) 1.50 % LYMPH % (test code = 736-9) 18.9 % MONO % (test code = 5905-5) 7.0 % EOS % (test code = 713-8) 1.9 % BASO % (test code = 706-2) 0.8 % GRAN MAT x10^3(ANC) (test code = 8699480725) 7.15 10*3/uL 1.99-6.95 H IMM GRAN x10^3 (test code = 4304803591) 0.15 10*3/uL 0.00-0.06 H LYMPH x10^3 (test code = 731-0) 1.93 10*3/uL 1.09-3.23 MONO x10^3 (test code = 742-7) 0.72 10*3/uL 0.36-1.02 EOS x10^3 (test code = 711-2) 0.19 10*3/uL 0.06-0.53 BASO x10^3 (test code = 704-7) 0.08 10*3/uL 0.01-0.09 Lab Interpretation (test code = 12787-8) Abnormal [facility] Notes Date/Time Note Provider Source 2024-02-17 21:43:52 2275-29-33M80:43:52F ormatting of this note might be different from the original.No answer in lobby. 86044-4Dcecvodkt department DlflZV2085-75-01Z15:44:07[facility] NoteTXT1.2.840.885638.1.13.104.2.7 .2.981232|6849170973KZLsytlrjvp for patient pntt77463-6VsbhZVLWAEIMPLKXnfagtxw d C-CDA narrative uvkg449307260Dgdvvd J Hoot RN[address]GalvestonTXTX[address] 89OPRXSHXNKRRHODSQDKTIHR4991-67-89 T21:44:071.2.840.117657.1.72.3.15| 1.2.840.530929.1.13.104.2.7.2.7278 79_[id number] Angy Turner RN [facility] 2024-02-17 21:42:10 5999-25-69F44:42:10F ormatting of this note might be different from the original.Pt's blood pressure cuff and pulse ox found lying on chair. Called for patient in lobby 2 times, no answer. No one in lobby. 22496-5Jazmxehcf department AcrmQF9822-98-79O33:44:10[facility] NoteTXT1.2.840.884775.1.13.104.2.7 .2.492543|2717096208VURmrpmirwz for patient pcds46949-4MqwjJNSBBLNRAYBWwlryfxv d C-CDA narrative pqhw171127974EsqxnSierra [address]TXTX[address] 39VRRNNHBFBUHNCYXYIEWCGZ2755-10-46 T21:44:101.2.840.520645.1.72.3.15| 1.2.840.963861.1.13.104.2.7.2.7278 79_[id number] Sierra Samaniego RN [facility] 2024-02-17 21:41:09 7460-99-12Y31:41:09F ormatting of this note might be different from the original.Pt not in lobby or in room. No answer in lobby. 73663-7Fhroqufox department CcfzVF8246-73-68T09:41:40[facility] NoteTXT1.2.840.917269.1.13.104.2.7 .2.984560|3321590593GFDzuokacad for patient hryw25742-2YwhrTVJKWMVWLHRHdwhbenf d C-CDA narrative textUT[address] StreetTXTX77555775 52NGQXHDDGUQSJVDXOBYMOLD4510-09-44 T21:41:401.2.840.237714.1.72.3.15| 1.2.840.674966.1.13.104.2.7.2.7278 79_[id number] [facility] 2024-02-17 21:14:29 8000-28-33Y42:14:29F ormatting of this note might be different from the original.Pt not in FT01-01 and no answer in lobby. 42016-6Naquydvzr department NxrtKR7563-02-09M33:15:32[facility] NoteTXT1.2.840.782106.1.13.104.2.7 .2.380825|0312139173CYKtjdrnhmn for patient itxt85367-6MnsjETKSZAMIKSJVrodooqu d C-CDA narrative text[address]TXTX[address]75 99NSLHJKCMVYPNKSSSPWLPHQ8722-05-67 T21:15:321.2.840.109309.1.72.3.15| 1.2.840.980343.1.13.104.2.7.2.7278 79_[id number] [facility] 2024-02-17 20:48:50 1094-71-54I18:48:50F ormatting of this note might be different from the original.Pt arrives ambulatory to ED c/o SOB, right upper abdominal pain, and left leg and hip pain. Pt states that he has been on prednisone for about 5 yrs which had given him osteoporosis which is causing his leg pain. Reports hx of COPD, o2 is generally @ 91 he says. 98557-3Mahsjnzki department Triage xllqYA6131-29-34D09:53:54[facility] department Triage noteTXT1.2.840.913050.1.13.104.2.7 .2.693365|3685294399JQWlwumidua for patient tpcd89419-6Styyhvsji department NoteLNNARRATIVEFormatted C-CDA narrative stio878479393Ujzvmsyee [address] StreetBqdoAkmhuzemdKiteiiazyUOSN31854615 36XJAEEQWFOIWPEZTGAKNVYH9541-93-65 T20:53:541.2.840.477389.1.72.3.15| 1.2.840.948925.1.13.104.2.7.2.7278 79_[id number] Leah Lizama RN [facility] 2024-02-08 21:37:56 4268-01-87K13:37:56F ormatting of this note might be different from the original.Pt left AMA 11841-5Jmgsehwnj department FkfeXI4131-47-41F26:38:11[facility] NoteTXT1.2.840.994757.1.13.104.2.7 .2.536390|1015449427KCPtuoqrrwl for patient ntft04577-7EwklWLLVKBVWGJANnjivkrf d C-CDA narrative lxwj560406122MvesoKylie Foster RN[address]onGalvestonTXTX[address]75 86KAPCMLNKDEYJTMTPLZDKKM6805-16-06 T21:38:111.2.840.726082.1.72.3.15| 1.2.840.041006.1.13.104.2.7.2.7278 79_[id number] Kylie Foster RN [facility] 2024-02-08 21:32:00 9393-66-06A18:32:00F ormatting of this note might be different [...] ambulatory with steady [place], [place] 82412-9Ariuhenhb department EzcxCD5516-33-76L92:40:32[facility] NoteTXT1.2.840.318950.1.13.104.2.7 .2.071917|8238536292UEDnuzxefvg for patient tywa91384-5IprgLEYXBLCXCNNQhxcifzs d C-CDA narrative [address]TXTX[address] 92HWXVHSEMUKFOOMJMDNFTZB0799-09-05 T21:40:321.2.840.794996.1.72.3.15| 1.2.840.072835.1.13.104.2.7.2.7278 79_[id number] [facility] 2024-02-08 20:54:38 6234-85-73I87:54:38F ormatting of this note might be different from the original.Pt states he uses O2 at home, portable O2 is broken [address]108-6Jxbkbxxwz[address] NpuzST0730-37-76K70:55:13[facility] NoteTXT1.2.840.018883.1.13.104.2.7 .2.646553|2903905696INNddppgmnx for patient zwlt37316-7YglmANZCUJKDECVZsiqfzqz d C-CDA narrative [address]TXTX[address]75 52FZWHPJDBFGNWAILWQONXIY6134-47-79 T20:55:131.2.840.455389.1.72.3.15| 1.2.840.579859.1.13.104.2.7.2.7278 79_[id number] [facility] 2024-02-08 20:51:11 2832-48-56G17:51:11F ormatting of this note might be different from the original.Pt ambulates with cane 20507-3Uffmciill department PsxaAD0405-77-21B77:51:26[facility] NoteTXT1.2.840.676793.1.13.104.2.7 .2.447174|8479902273FCHsqovrefc for patient mskb84703-5ZhbeHMZCZUSBCDBMdzvwdof d C-CDA narrative text[address]TXTX[address]75 53SKQRKOZLXOQNXPXZVYXMZE5121-21-27 T20:51:261.2.840.394933.1.72.3.15| 1.2.840.880998.1.13.104.2.7.2.7278 79_[id number] [facility] 2024-02-08 20:43:13 4616-05-57J08:43:13F ormatting of this note might be different from the original.CC: Pt arrives SOB after leaving [place] earlier in the shift. He reports he [...] 3 BC powders and drank 3 beers." 62844-2Ayabudgpy department Triage yqmtFC5618-21-36Z25:48:36[facility] Triage noteTXT1.2.840.918865.1.13.104.2.7 .2.394089|3815422259RTDssxnqnvx for patient mqcf52722-8Ptbkhptpm department NoteLNNARRATIVEFormatted C-CDA narrative shor289932458Xwaazb R Shehadeh RNUT[address]TXTX[address] 15FJGNEYHXCCKOUCEUCKVEKF9745-29-94 T20:48:361.2.840.985426.1.72.3.15| 1.2.840.944811.1.13.104.2.7.2.7278 79_[id number] Leah King RN [facility] 2024-02-08 17:04:05 0389-43-23V14:04:05F ormatting of this note might be different [...] of the department with a steady gait. 36480-8Uuvukadgi department RombAT4949-40-14E10:05:22[facility] NoteTXT1.2.840.233000.1.13.104.2.7 .2.093840|2448185640JPCkybnabks for patient bmqy02322-4UjsdSZBMMRMTSGNDvdiciqi d C-CDA narrative eghu852508141Kuci M Hayes RN[address]vdGalvestonGalvestonTXTX[address] 15EASIEYHCCYBCZDEJNNKGHN6324-39-30 T17:05:221.2.840.463853.1.72.3.15| 1.2.840.968539.1.13.104.2.7.2.7278 79_[id number] Allison Zhang RN [facility] 2024-02-08 14:23:02 9808-80-90N60:23:02F ormatting of this note might be different from the original.Pt ambulates with a cane 68133-0Upsvymemt department FievRR3926-57-44S80:23:12[facility] department NoteTXT1.2.840.957148.1.13.104.2.7 .2.424955|6923140359WRKxydydjvo for patient zwiu18456-9ZqybUJSZOTBDGRCRlxgwwbj d C-CDA narrative jqes021920683VifijKylie Foster RN[address] StreetTXTX[address] 68WOHMQJEJXSSRHOUSOHMZJU8024-47-51 T14:23:121.2.840.890953.1.72.3.15| 1.2.840.808633.1.13.104.2.7.2.7278 79_[id number] Kylie Foster RN [facility] 2024-02-08 14:13:15 5493-97-50O51:13:15F ormatting of this note might be different [...] only thing that helps." Face is flushed. 40857-1Pgmcwqvik department Triage erhrKF1196-83-66J59:17:26[facility] Triage noteTXT1.2.840.032689.1.13.104.2.7 .2.054420|0241391635XWNagufdhfm for patient popw99630-0Idzmxscju department NoteLNNARRATIVEFormatted C-CDA narrative esnf524555480Ltplwnq Fief RNUT[address] StreetTXTX[address] 53NDNNIMMPNJFNYOTYSWRHSN4248-48-22 T14:17:261.2.840.452124.1.72.3.15| 1.2.840.370503.1.13.104.2.7.2.7278 79_[id number] Hali Aviles RN [facility] 2024-01-14 06:16:25 2065-25-52X51:16:25F ormatting of this note might be different [...] w/d, pt leaving in no apparent distress, 41205-3Ngfciueld department ZizxNU9770-07-41O75:17:20[facility] NoteTXT1.2.840.738573.1.13.104.2.7 .2.868083|4414415774FCRptuskhei for patient xhcl65849-9CqgaMQXMKUMMDYSRkgqvype d C-CDA narrative textUT[address] KdivDkqpkajliSsgrschsrBAOZ80587635 73DEXTRJWXOXCYFQZRNEPBYJ2206-92-61 T06:17:201.2.840.345953.1.72.3.15| 1.2.840.099226.1.13.104.2.7.2.7278 79_[id number] [facility] 2024-01-14 04:49:43 0575-87-65I69:49:43F ormatting of this note might be different [...] ext without difficulty, amb with steady gait 18946-1Rtazcfmxb department Triage scwoVV0455-02-66I09:55:49[facility] Triage noteTXT1.2.840.812512.1.13.104.2.7 .2.608509|9100171500EJDyfhacdqk for patient zlbm06693-6Uvusjigni department NoteLNNARRATIVEFormatted C-CDA narrative enny408408881Trgtqc R Shehadeh RN[address] NyfsEzzghjqaaFtauukbplTFZN04958280 01ZYNXNZCXLZJNDECLQIEWUV1493-86-94 T04:55:491.2.840.820946.1.72.3.15| 1.2.840.882169.1.13.104.2.7.2.7278 79_[id number] Leah King RN [facility] 2024-01-14 04:43:00 1242-88-76A73:43:00A ssociated Order(s): EKG-12 Lead ROUTINE ONCEPre-Procedure Diagnose(s): Chest pain, unspecified typePost-Procedure Diagnose(s): Chest pain, unspecified type [facility] Emergency Department NotePatient Name: Randy Edwards of : 1970 53 year old maleTreatment Room: TX1/OP2Zavyczs Record Number: [id number] Care Physician: Adrianna King Escorted by: Family [5]Mode of Arrival: Personal means [1]EMS Treatment 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 METABOLIC PANEL (49745) - AbnormalResult Value Ref RangeNA 138 135 [...] 49 (*) 13 - 40 U/LeGFR 93.3 mL/min/1.01s1JNO WITH DIFF - AbnormalWBC 11.59 (*) 4.20 [...] 220 U/LCOVID-19 (ID NOW RAPID TESTING) - XvbsvuVNNN-IzZ-0 Rapid ID NOW Not Detected Not DetectedETHANOLALCOHOL 62 mg/dLEKG:If EKG completed, see Procedure Note.Orders and Treatments:Orders Placed This EncounterProcedures XR CHEST 1 VW TROPONIN I COMP. METABOLIC PANEL (97222) LIPASE, SERUM CBC WITH DIFF N-Terminal Pro-Bnp Ethanol COVID-19 (ID NOW TESTING) Lab Only COVID Interpretation O2 Per ProtocolOrders Placed This EncounterMedications morpHINE (4 mg/mL) injection 4 mg ondansetron (ZOFRAN (PF)) injection 4 mg ipratropium-albuteroL (DUONEB) 0.5 mg-3 mg(2.5 mg base)/3 mL nebulizer solution 3 mLFirst Provider Eval:ED EventsDate/Time Event User Hgzapvih05/07/24 0510 Medical Screening Begins JAC NAVARRO MD --01/14/24 0510 First Provider Evaluation JAC NAVARRO MD --ED COURSEDiagnosis/Impression as of 01/14/24 0605Chest pain, unspecified typeBronchitisProcedures:EKG-12 Lead ROUTINE ONCEDate/Time: 01/14/2024 5:24 AMPerformed by: Jac Navarro MDAuthorized by: Jac Navarro MDECG interpreted by ED Physician in the 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2.7.2.7278 79_[id number] [facility] 2023-12-22 23:12:16 5572-18-20O48:12:16F ormatting of this note might be different [...] with steady gait, in no apparent distress, 74483-1Epmlfuvyz department OcixAO3178-50-02J33:13:50[facility] NoteTXT1.2.840.583409.1.13.104.2.7 .2.749334|8288631777XSGpysukzxn for patient flwn75099-0FeolAARLFWXGTLZXarercsq d C-CDA narrative tccd030380851Hgpiq E Gómez MACHUCA[address]vestonTXTX[address] 60AWWTSCEJWUWVTEKUDTGHXU9918-37-76 T23:13:501.2.840.042597.1.72.3.15| 1.2.840.121216.1.13.104.2.7.2.7278 79_[id number] Mary Machado Gómez MACHUCA [facility] 2023-12-22 21:41:55 8258-26-24T67:41:55F ormatting of this note might be different from the original.Pt arrives ambulatory to ED reporting bleeding with stools and 10/10 abdominal pain. States he was here last night but had to leave before receiving results d/t having to work. Says the pain became worse so he came back in. 15745-4Dfpleodlc department Triage zfgrQA6628-62-61J67:48:52[facility] Triage noteTXT1.2.840.458621.1.13.104.2.7 .2.985687|[id number] for patient ifvp55267-0Tfbkpasku department NoteLNNARRATIVEFormatted C-CDA narrative njwc741182969Deurjy L Williams RN[address]TXTX[address] 71WUSDBKZMKFTMRCWISQQXXP9531-90-80 T21:48:521.2.840.263869.1.72.3.15| 1.2.840.868428.1.13.104.2.7.2.7278 79_[id number] Leah Lizama RN [facility] 2023-12-21 21:31:00 3915-71-09M53:31:00F ormatting of this note might be different [...] with steady gait, appears in no distress. 34981-0Xlvczfkja department KocqEZ4758-77-53S92:38:39[facility] NoteTXT1.2.840.479792.1.13.104.2.7 .2.743565|3891829229HWPefarbzsb for patient ekun63675-7GzxpYFEXMSUVSMAZwiuljke d C-CDA narrative rzbr807700137TxmsoMary Magaña RN[address]vdGalvestonGalvestonTXTX[address] 15DUXRZPGKIZNLXXJQYWCUCW0610-63-45 T21:38:391.2.840.951321.1.72.3.15| 1.2.840.753155.1.13.104.2.7.2.7278 79_[id number] Mary Magaña RN [facility] 2023-12-21 21:30:00 7421-08-74E75:30:00F ormatting of this note might be different from the original.Pt wished to leave AMA. Pt states " yall were wonderful but 3am come real early." 19648-8Biuesdmef department LqabSA8414-35-26K94:36:58[facility] NoteTXT1.2.840.052052.1.13.104.2.7 .2.245828|5842356529TVLblcfjyon for patient uqbw90384-4BzzcMXDHHPRMVKKSyydrily d C-CDA narrative textUT[address]TXTX[address] 65VTYOQGWEWCVVZQMVDXDQND6508-14-09 T21:36:581.2.840.123991.1.72.3.15| 1.2.840.795961.1.13.104.2.7.2.7278 79_[id number] [facility] 2023-12-21 21:26:22 2194-76-44A37:26:22F ormatting of this note might be different from the original.Pt asking to go outside and smoke, wants to go home and eat. Pt educated on risks of leaving AMA. Provider informed pt is in pain. 54288-4Wocvgmcrx department UwjpNF7024-67-14Q03:33:35[facility] NoteTXT1.2.840.290689.1.13.104.2.7 .2.667279|2679245881SUFkjedefpm for patient safw36008-9ZorfGSLACOGKMJSSxtcibdb d C-CDA narrative lwjp306503632Tmoowo R Shehadeh RNUT[address]TXTX[address] 33RUMHHJCOQNVUTLKWEZVCGJ0779-71-66 T21:33:351.2.840.060811.1.72.3.15| 1.2.840.176836.1.13.104.2.7.2.7278 79_[id number] Leah King RN [facility] 2023-12-21 19:31:50 3572-95-40U54:31:50F ormatting of this note might be different from the original.Pt arrived ambulatory with complaints of bright red rectal bleeding and generalized abdominal pain this afternoon. Pt states his stool was normal consistency but continuous bright red blood. 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 States he vomits all the time but not something new today. 01048-2Jiungtulf department Triage exfsKR6264-46-09T50:33:28[facility] department Triage noteTXT1.2.840.062402.1.13.104.2.7 .2.501356|[id number] for patient xjyl02283-2Mnolugxer department NoteLNNARRATIVEFormatted C-CDA narrative [id number] D Roman RN[id number] 73MHGPCVISEGQSOXLBOGBPBG4406-06-56 T19:33:281.2.840.455132.1.72.3.15| 1.2.840.229921.1.13.104.2.7.2.7278 [id number] Gabi Esqueda RN [facility] 2023-11-10 20:13:39 5967-86-88L79:13:39F ormatting of this note might be different from the original.Pt requesting to leave AMA. ERP notified. Pt counseled to remain, risks of leaving AMA including discussed with pt. Pt continued to decline further ER evaluation at this time. AMA papers signed, witnessed, and placed on patient's chart. Pt left ambulatory. VS stable, no ataxia noted, GCS 15, A&Ox4. 03791-3Baoyoxbbw department AcvaCX1243-09-13R09:13:52[facility] department NoteTXT1.2.840.585774.1.13.104.2.7 .2.317448|[id number] for patient ktrg87355-7LrmtZZMNMDUXNPVWqzcyibg d C-CDA narrative [id number] R Goodrich RN[id number] 01BQTRXWZRSYPAYENBSTLDBQ6210-10-88 T20:13:521.2.840.521529.1.72.3.15| 1.2.840.952938.1.13.104.2.7.2.7278 [id number] Briseida Medrano RN [facility] 2023-11-10 19:30:29 1424-63-21P68:30:29F ormatting of this note might be different from the original.Patient arrived to ED c/o SOB and COPD exacerbation. Symptoms started this morning. Patient wears 3L NC at home. Patient is a smoker. Patient states having the chills, diarrhea, and vomiting. States having sharp pains in chest from coughing. 53413-6Exmbktboc department Triage tinfDE7062-93-26G00:35:27[facility] Triage noteTXT1.2.840.408886.1.13.104.2.7 .2.550870|[id number] for patient yxpz40057-7Ymehhhdnz department NoteLNNARRATIVEFormatted C-CDA narrative [id number]-Rfyfq McInnis RNUT[address] Pt[id number] 25EFYJCSEUUCHPRUFHOHUOOH6535-42-96 T19:35:271.2.840.657356.1.72.3.15| 1.2.840.542628.1.13.104.2.7.2.7278 [id number] Sreedhar Gomez RN [facility]
[2024-04-29 18:29] LABS: Absolute Basophils 0.1 K/uL (0-0.5); Absolute Eosinophils 0.1 K/uL (0-0.5); Absolute Lymphocytes (CBC) 2.6 K/uL (0.7-4.9); Absolute Monocytes 0.8 K/uL (0.1-1.3); Absolute Neutrophil 5.8 K/uL (1.8-8.0); Basophils % 0.7 % (0-1.3); Eosinophils % 1.1 % (0-4.4); Hematocrit 33.9 % (39.6-49.0); Lymphocytes % 27.5 % (15.3-44.8); MCH 32.6 pg (27.0-35.0); MCHC 32.6 g/dL (32.0-36.0); MCV 100.2 fL (80-100); Monocytes % 8.9 % (3.3-12.3); Neutrophils % 61.8 % (41.7-73.7); Platelets 283 thou/uL (152-406); RBC Red Blood Cell Count 3.38 M/uL (4.33-5.43); Red Cell Distribution Width 16.5 % (12.1-15.2)
[2024-04-29 18:30] LABS: PT Prothrombin Time 9.8 SECONDS (9.4-12.5); Protime INR 0.89
--- NOTE | 2024-04-29 18:36 | RAD REPORT ---
EXAM DESCRIPTION: RAD - Chest Single View - 04/29/2024 6:27 pm CLINICAL HISTORY: Chest pain;SOB Chest pain. COMPARISON: Chest Single View dated 04/26/2024; Chest Single View dated 04/25/2024; Chest Single View dated 04/20/2024; Chest Single View dated 04/19/2024 FINDINGS: Portable technique limits examination quality. The lungs are grossly clear. The heart is moderately enlarged. No displaced fractures. IMPRESSION: No acute intrathoracic process suspected. Cardiomegaly.
--- NOTE | 2024-04-29 18:37 | RAD REPORT ---
EXAM DESCRIPTION: RAD - Elbow Left 3 View - 04/29/2024 6:27 pm CLINICAL HISTORY: fall COMPARISON: <Comparisons> FINDINGS: No acute fracture or dislocation seen.
[2024-04-29 18:45] LABS: ALT/SGPT 18 U/L (16-61); Albumin/Globulin Ratio 0.9 (1.1-1.8); Alkaline Phosphatase 52 U/L (45-117); Anion Gap 10.6 mEq/L (5.0-15.0); BUN Blood Urea Nitrogen 11 mg/dL (7-18); Bicarbonate 27 mEq/L (21-32); Bilirubin Total 0.2 mg/dL (0.2-1.0); Globulin 3.2 g/dL (2.3-3.5); Glomerular Filtration Rate 104 ml/min (=/>90); Glucose Level 66 mg/dL (74-106); NT PRO-BNP 225 pg/mL (<125); Potassium 3.6 mEq/L (3.5-5.1); Protein, Total 6.2 g/dL (6.4-8.2); Sodium Level 142 mEq/L (136-145); Troponin High Sensitivity 5.3 pg/mL (<58.9)
[2024-04-29 18:47] LABS: AST/SGOT < 10 U/L (15-37); Bilirubin Direct < 0.2 mg/dL (0-0.2)
[2024-04-29 19:00] LABS: Band Neutrophils 5 % (0-1); Blood Morphology Comment NOT SEEN (NOT SEEN); Differential Total Cells Count 100; Lymphocytes 24 % (15-42); Metamyelocytes 2 % (0-0); Monocytes 6 % (0-10); Myelocytes 6 % (0-0); Platelet Estimate ADEQ; Segmented Neutrophils 57 % (40-80)
[2024-04-29 19:20] LABS: SARS-CoV-2 Antigen CONTROL BLUE LINE VIS/BG OK; SARS-CoV-2 Antigen Rapid Res Negative (Negative)
--- NOTE | 2024-04-29 20:07 | RAD REPORT ---
EXAM DESCRIPTION: CT - Chest For Pe Angio - 04/29/2024 7:52 pm CLINICAL HISTORY: Chest pain. CHEST PAIN COMPARISON: <Comparisons> TECHNIQUE: CT angiogram of the pulmonary arteries was performed with MIP. All CT scans are performed using dose optimization technique as appropriate and may include automated exposure control or mA/KV adjustment according to patient size. FINDINGS: No evidence of pulmonary thromboembolism. No acute aortic finding demonstrated. Mild COPD is present. Mild infiltrate pattern is present in the right lung base. Soft tissue material seen in the posterior right lower lobe bronchus. No significant pericardial or pleural fluid. No concerning bony finding. IMPRESSION: No evidence of pulmonary thromboembolism. Soft tissue material in posterior right lower lobe bronchus may be aspirated. Mild postobstructive pn eumonitis is likely present in the right lung base.
[2024-04-29] MEDS ORDERED: METHYLPREDNISOLONE 125 MG INJ ONE (20:09)
[2024-04-29] MEDS ORDERED: KETOROLAC 30 MG/ML INJ ONE (20:09)
--- NOTE | 2024-04-29 20:27 | EDPHYS ---
Physician Documentation [facility] Name: Randy Briones Age: 53 yrs Sex: Male : 1970 Arrival Date: 04/29/2024 Time: 17:11 Bed 3 Private MD: ED Physician Roberto Song HPI: 04/29 17:20 This 53 yrs old Male presents to ER via EMS with complaints of Chest Pain. cp 17:20 The patient or guardian reports chest pain that is located primarily in the anterior cp chest wall, left. Onset: this morning. Associated signs and symptoms: Pertinent positives: shortness of breath. The chest pain is described as constant. Duration: The patient or guardian reports a single episode, that is still ongoing, and unchanged. Historical: - Allergies: 17:30 Lisinopril; al5 - PMHx: 17:30 Alcoholism; Hepatitis B (Hypertension); COPD; home 02 3LNC PRN; Hypertension; al5 Osteoporosis; - PSHx: 17:30 Amputation of left index finger; al5 - Immunization history:: Adult Immunizations unknown, Adult Immunizations not up to date. - Infectious Disease History:: Denies. - Social history:: Smoking status: Patient reports the use of cigarette tobacco products, smokes two packs cigarettes per day. ROS: 17:25 Constitutional: Negative for body aches, chills, fever, poor PO intake, cp 17:25 Eyes: Negative for injury, pain, redness, and discharge, cp 17:25 ENT: Negative for drainage from ear(s), ear pain, sore throat, difficulty swallowing, difficulty handling secretions, 17:25 Cardiovascular: Positive for chest pain, Negative for palpitations, 17:25 Respiratory: Positive for shortness of breath, Negative for cough, wheezing, 17:25 Abdomen/GI: Negative for abdominal pain, vomiting, diarrhea, constipation, 17:25 Back: Negative for pain at rest, pain with movement, radiated pain, 17:25 Neuro: Negative for altered mental status, dizziness, headache, numbness, syncope, weakness, 17:25 All other systems are negative, Exam: 17:22 ECG was reviewed by the Attending Physician. cp 17:30 Constitutional: The patient appears in no acute distress, alert, awake, cp non-diaphoretic, non-toxic, well developed, well nourished, 17:30 Head/Face: Normocephalic, atraumatic. cp 17:30 Eyes: Periorbital structures: appear normal, Conjunctiva: normal, no exudate, no injection, Sclera: no appreciated abnormality, Lids and lashes: appear normal, bilaterally, 17:30 ENT: External ear(s): are unremarkable, Nose: is normal, Mouth: Lips: moist, Oral mucosa: pink and intact, moist, Posterior pharynx: Airway: no evidence of obstruction, patent, 17:30 Chest/axilla: Inspection: normal, Palpation: crepitus, is not appreciated, tenderness, that is moderate, of the anterior aspect of left upper chest and left breast, 17:30 Cardiovascular: Rate: normal, Rhythm: regular, Edema: is not appreciated, JVD: is not appreciated, 17:30 Respiratory: the patient does not display signs of respiratory distress, Respirations: shallow respirations, Breath sounds: bronchial sounds, that are mild, are heard diffusely, 17:30 Abdomen/GI: Inspection: abdomen appears normal, Palpation: abdomen is soft and non-tender, in all quadrants, 17:30 Neuro: Orientation: to person, place \T\ time. Mentation: is normal, Motor: moves all fours, strength is normal, Sensation: is normal, Vital Signs: 17:20 BP 127 / 84; Pulse 90; Resp 18; Temp 97.8; Pulse Ox 95% on 3 lpm NC; Weight 82.55 kg; al5 Height 5 ft. 4 in. ; Pain 10/10; 18:09 BP 136 / 79; Pulse 86; Resp 18; Pulse Ox 96% on 3 lpm NC; al5 19:27 BP 107 / 68; Pulse 84; Resp 18; Pulse Ox 97% on 3 lpm NC; al5 17:20 Body Mass Index 31.24 (82.55 kg, 162.56 cm) al5 17:20 Pain Scale: Adult al5 MDM: 17:27 Patient medically screened. cp 20:26 Data reviewed: vital signs, nurses notes, lab test result(s), EKG, radiologic studies, cp plain films, and as a result, I will discharge patient. 20:26 Differential diagnosis: abnormal EKG, acute myocardial infarction, pancreatitis, cp pericarditis, pneumonia, pneumothorax, pulmonary embolus, stable angina, unstable angina. I considered the following discharge prescriptions or medication management in the emergency department Medications were administered in the Emergency Department. See JAN. 22:02 ED course: attempt to contact patient to inform him of ct results, msg left on voicemail. 04/29 17:19 Order name: Basic Metabolic Panel; Complete Time: 19:19 cp 04/29 19:19 Interpretation: Normal except: CL 108; GLUC 66. 04/29 17:19 Order name: CBC with Diff; Complete Time: 19:19 cp 04/29 19:21 Interpretation: Normal except: RBC 3.38; HGB 11.0; HCT 33.9; MCV 100.2; RDW 16.5; MPV cp 7.0. 04/29 17:19 Order name: LFT's; Complete Time: 19:19 04/29 19:21 Interpretation: Normal except: AST < 10; IBILI, CALC 0.0; TP 6.2; ALB 3.0; A/G 0.9. 04/29 17:19 Order name: Magnesium; Complete Time: 19:19 cp 04/29 17:19 Order name: NT PRO-BNP; Complete Time: 19:19 04/29 17:19 Order name: PT-INR; Complete Time: 19:19 cp 04/29 17:19 Order name: Troponin HS; Complete Time: 19:19 cp 04/29 17:27 Order name: SARS RAPID; Complete Time: 19:21 04/29 19:22 Interpretation: Reviewed. 04/29 17:27 Order name: Influenza Screen (a \T\ B); Complete Time: 19:19 cp 04/29 18:32 Order name: Manual Differential; Complete Time: 19:19 EDMS 04/29 19:38 Interpretation: Reviewed. 04/29 17:19 Order name: XRAY Chest (1 view); Complete Time: 19:19 cp 04/29 17:27 Order name: XRAY Elbow LEFT 3 view; Complete Time: 19:19 cp 04/29 19:39 Order name: CT Chest For PE Angio; Complete Time: 20:27 04/29 17:19 Order name: Cardiac monitoring; Complete Time: 17:20 cp 04/29 17:19 Order name: EKG - Nurse/Tech; Complete Time: 17:20 cp 04/29 17:19 Order name: IV Saline Lock; Complete Time: 18:21 cp 04/29 17:19 Order name: Labs collected and sent; Complete Time: 18:21 cp 04/29 17:19 Order name: O2 Per Protocol; Complete Time: 18:21 cp 04/29 17:19 Order name: O2 Sat Monitoring; Complete Time: 17:20 cp 04/29 19:21 Order name: Accucheck Blood Glucose: if low please feed cp EC: Rate is 94 beats/min. Rhythm is regular. UT interval is normal. QRS interval is normal. cp QT interval is normal. T waves are Inverted in lead aVR. Interpreted by me. Reviewed by me. Administered Medications: 20:26 Not Given (Patient Refused): [id number] mg IVP once kd4 20:26 Not Given (Patient Refused): [id number] mg IVP once kd4 20:27 Not Given (Patient Refused): DuoNeb Nebulize (2.5 mg - 0.5 mg) 3 ml Nebulizer once kd4 Disposition Summary: 04/29/24 20:27 Discharge Ordered Notes: Location: Home cp Problem: new cp Symptoms: have improved cp Condition: Stable cp Diagnosis - Chest pain, unspecified cp Followup: cp - With: Private Physician - When: 2 - 3 days - Reason: Recheck today's complaints Forms: - Medication Reconciliation Form cp - Antibiotic Education cp - Prescription Opioid Use cp - Patient Portal Instructions cp - Leadership Thank You Letter cp Addendum: 05/01/2024 05:48 I was immediately available for consultation during this patient's visit. I did not e c2 personally see the patient or discuss the patient with the BRISSA. . Signatures: Dispatcher [employer] EDMS Bg Pro PA PA cp Corral, Edwin, MD MD ec2 Leah Bradford RN RN al5 Smiley Chavez RN kd4 Corrections: (The following items were deleted from the chart) 04/29 17:20 17:20 BASIC METABOLIC PANEL+C.LAB.BRZ ordered. EDMS EDMS 17:20 17:20 CBC+H.LAB.BRZ ordered. EDMS EDMS 17:20 17:20 HEPATIC FUNCTION+C.LAB.BRZ ordered. EDMS EDMS 17:20 17:20 MAGNESIUM+C.LAB.BRZ ordered. EDMS EDMS 17:20 17:20 PROBNP+C.LAB.BRZ ordered. EDMS EDMS 17:20 17:20 PROTIME (+INR)+COAG.LAB.BRZ ordered. EDMS EDMS 17:20 17:20 Troponin High Sensitivity+C.LAB.BRZ ordered. EDMS EDMS 17:20 17:20 Chest Single View+RAD.RAD.BRZ ordered. EDMS EDMS 17: 17:27 SARS-COV-2 Antigen Rapid+I.LAB.BRZ ordered. EDMS EDMS 17: 17:27 Influenza Screen (A \T\ B)+BA.LAB.BRZ ordered. EDMS EDMS 17:27 17:27 Elbow Left 3 View+RAD.RAD.BRZ ordered. EDMS EDMS
--- NOTE | 2024-04-29 20:27 | ER ---
Nurse's Notes [facility] Name: Randy Briones Age: 53 yrs Sex: Male : 1970 Arrival Date: 04/29/2024 Time: 17:11 Bed 3 Private MD: Diagnosis: Chest pain, unspecified Presentation: 04/29 17:20 Chief complaint: Patient states: L sided CP and dyspnea starting this morning. Hx of al5 COPD and recent pneumonia. Chief complaint: EMS states: Pt c/o CP and dyspnea, also had a fall, no head strike or LOC. skin tear to L lower arm. Coronavirus screen: Client denies travel out of the [place] in the last 14 days. At this time, the client does not indicate any symptoms associated with coronavirus-19. Ebola Screen: No symptoms or risks identified at this time. Initial Sepsis Screen: Does the patient meet any 2 criteria? No. Patient's initial sepsis screen is negative. Does the patient have a suspected source of infection? No. Patient's initial sepsis screen is negative. Risk Assessment: Do you want to hurt yourself or someone else? Patient reports no desire to harm self or others. Onset of symptoms was April 29, 2024. Care prior to arrival: wrapped patient L lower arm with gauze. 17:20 Method Of Arrival: EMS: [facility] al5 17:20 Acuity: CANDACE 2 al5 Triage Assessment: 17:33 General: Appears in no apparent distress. Behavior is calm, cooperative, Smells of al5 alcohol. Pain: Complains of pain in chest Pain currently is 10 out of 10 on a pain scale. Quality of pain is described as stabbing, Pain began this morning Is continuous. Neuro: Level of Consciousness is awake, alert, obeys commands, Oriented to person, place, time, situation, Gait is unsteady, Speech is normal. Cardiovascular: Reports chest pain, shortness of breath, Patient's skin is warm and dry. Rhythm is sinus rhythm Chest pain is described as Pain is 10 out of 10 on a pain scale. quality is stabbing, is located in left began this morning. Respiratory: Airway is patent Respiratory effort is even, unlabored, Respiratory pattern is regular, symmetrical. Derm: Skin is intact. Historical: - Allergies: 17:30 Lisinopril; al5 - PMHx: 17:30 Alcoholism; Hepatitis B (Hypertension); COPD; home 02 3LNC PRN; Hypertension; al5 Osteoporosis; - PSHx: 17:30 Amputation of left index finger; al5 - Immunization history:: Adult Immunizations unknown, Adult Immunizations not up to date. - Infectious Disease History:: Denies. - Social history:: Smoking status: Patient reports the use of cigarette tobacco products, smokes two packs cigarettes per day. Screenin:39 [facility] ED Fall Risk Assessment (Adult) History of falling in the last 3 months, al5 including since admission Yes- single mechanical fall (1 pt) Confusion or Disorientation No (0 pts) Intoxicated or Sedated Yes (3 pts) Impaired Gait Yes (1 pt) Mobility Assist Device Used Yes (1 pt) Altered Elimination No (0 pt) Score/Fall Risk Level 3 or more points = High Risk Oriented to surroundings, Maintained a safe environment, Hourly rounding (assess needs \T\ fall precautionary measures) done, Used ambulatory aids as needed (educated on \T\ assisted with), Apply high fall risk patient identification: yellow non skid footwear/ fall signage. Abuse screen: Denies threats or abuse. Denies injuries from another. Nutritional screening: No deficits noted. Tuberculosis screening: No symptoms or risk factors identified. Assessment: 20:31 Reassessment: Patient pulled out his iv, refused med and decide to leave. PA notified, kd4 per PA he will d/c patient. Vital Signs: 17:20 BP 127 / 84; Pulse 90; Resp 18; Temp 97.8; Pulse Ox 95% on 3 lpm NC; Weight 82.55 kg; al5 Height 5 ft. 4 in. ; Pain 10/10; 18:09 BP 136 / 79; Pulse 86; Resp 18; Pulse Ox 96% on 3 lpm NC; al5 19:27 BP 107 / 68; Pulse 84; Resp 18; Pulse Ox 97% on 3 lpm NC; al5 17:20 Body Mass Index 31.24 (82.55 kg, 162.56 cm) al5 17:20 Pain Scale: Adult al5 ED Course: 17:18 Patient arrived in ED. [id number] 17:19 Bg Pro PA is PHCP. cp 17:19 Roberto Song MD is Attending Physician. cp 17:19 Leah Bradford, RN is Primary Nurse. al5 17:30 Triage completed. al5 18:20 Accessed peripheral vein via ultrasound, utilizing dynamic ultrasound technique Blood cm10 collected. Clean \T\ dry. Dressing intact. Good blood return. Flushes easily. 20G right fore arm. Missed attempt(s): 22 gauge in right forearm. 18:21 Basic Metabolic Panel Sent. cm10 18:21 CBC with Diff Sent. cm10 18:21 LFT's Sent. cm10 18:21 Magnesium Sent. cm10 18:21 NT PRO-BNP Sent. cm10 18:21 PT-INR Sent. cm10 18:21 Troponin HS Sent. cm10 18:21 Influenza Screen (a \T\ B) Sent. cm10 18:21 SARS RAPID Sent. cm10 18:29 XRAY Chest (1 view) In Process Unspecified. EDMS 18:29 XRAY Elbow LEFT 3 view In Process Unspecified. EDMS 19:53 CT Chest For PE Angio In Process Unspecified. EDMS 20:32 IV discontinued, pulled out by patient. kd4 20:32 Arm band placed on right wrist. kd4 20:33 No provider procedures requiring assistance completed. kd4 20:34 Provided Education on: unable to educate patient , ripped out his iv, blood all over kd4 the floor. gauze applied to iv site and tapped. refused med and final vs.. 20:35 Patient has correct armband on for positive identification. kd4 Administered Medications: 20:26 Not Given (Patient Refused): [id number] mg IVP once kd4 20:26 Not Given (Patient Refused): mg IVP once kd4 20:27 Not Given (Patient Refused): DuoNeb Nebulize (2.5 mg - 0.5 mg) 3 ml Nebulizer once kd4 Medication: 20:35 VIS not applicable for this client. kd4 Outcome: 20:27 Discharge ordered by . cp 20:33 Discharged to home kd4 20:33 Condition: stable 20:33 Discharge instructions given to patient left prior to receive d/c instruction 20:35 Patient left the ED. kd4 Signatures: Dispatcher [employer] EDMS Bg Pro PA PA cp Martinez, Clarissa RN RN cm10 Farrah Fernandes [facility] Smiley Chavez RN RN kd4 Leah Bradford, RN RN al5
[2024-04-29 21:46] VITALS: TEMP 97.8
[2024-04-29 22:10] VITALS: BP 107/68; O2SAT 97
== END 2024-04-29 20:35 | disposition home or self-care (01) ==
LOC: ER 17:11
DX: R07.9 Chest pain, unspecified (principal); I10 Essential (primary) hypertension; J44.9 Chronic obstructive pulmonary disease, unspecified; Z99.81 Dependence on supplemental oxygen; Z79.899 Other long term (current) drug therapy
CPT/HCPCS: 85025; 80048; 36415; 83735; 85610; 80076; 84484; 83880; 87804 ×2; 71275; 71045; 73080; 99284; 87811; Q9967; J2919

== ENCOUNTER 2024-05-01 23:36 | Emergency (ER) | payer OTHER ==
--- OUTSIDE RECORDS SUMMARY | 2024-05-01 23:42 | XMS REPORT | Continuity of Care Document ---
Author Name Unknown Address [address] [facility] [address] [place] [address] [facility] Address [address] [facility] 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 Role Phone ADRIANNA LOPEZ Primary Care Physician Unavailab DARIEN Posey Attending Clinician Unavailable MINNA ORTA Attending Clinician Unavailab WENDY High Attending Clinician Unava SHARATH Mancera Attending Clinician Unavailable PEG CAMP Attending Clinician Unavailable Peg Camp NP Attending Clinician [phone] DEMETRIA DAVENPORT Attending Clinician UnaDemetria Carver MD Attending Clinician + Christina Victoria Attending Clinician [phone] JAC NAVARRO Attending Clinician Unavailable Jac Navarro MD Attending Clinician [phone] TYLER ROWE Attending Clinician Unavailab MELINDA Boothe Attending Clinician Unavailable Melinda Maciel DO Attending Clinician [phone] CHRISTY HOLLIDAY Attending Clinician Unavailable Christy Holliday MD Attending Clinician MARIA ELENA CHAN MEDICAL Attending George akins Unavailable DENISE SUNG Attending Clinician Unavailable KARLEY ADAMS Attending Clinician Unavailable JAC NAVARRO Admitting Clinician Unavailable MELINDA MACIEL Admitting Clinician Unavailable CHRISTY HOLLIDAY Admitting Clinician Unavailable Payers Payer Name Policy Type Policy Number Effective Date Expirati on Date Source [facility] VINOD LEE COPAY FOCUS 9 [id number] 2024 00:00:00 [facility] [id number] 2023 00:00:00 2024 00:00:00 [employer] [id number] 2023 00:00:00 [employer] 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 9 [id number] 2023 00:00:00 Problems Condition Name Condition Details [...] [facility] of Social function 2024-02-08 00:00:00 2024-02-08 [...] 1 dose, On Thu02/17/24 at 2215, Routine [facility] methylpredn isolone sod succ (SOLU-MEDRO L) injection 125 mg 02-17 03:00: 00 02-17 14:59 :00 Yes 125mg 125 mg, Intravenou s, ONCE, 1 dose, On Thu02/17/24 at 2200, 2 mL [facility] ipratropium -albuteroL (DUONEB) 0.5 mg-3 mg(2.5 mg base)/3 mL nebulizer solution 6 mL 02-17 03:00: 00 02-17 14:59 :00 Yes 6mL 6 mL, Inhalation , ONCE NOW, 1 dose, On Thu02/17/24 at 2200, Routine [facility] NaCl 0.9% (NS) bolus infusion 1,000 mL 02-17 03:00: 00 02-17 14:59 :00 Yes 1000mL at 999 mL/hr, 1,000 mL, IV Infusion, ONCE, 1 dose, On Thu02/17/24 at 2200, LAURYN [facility] triamterene -hydrochlor othiazide 37.5-25 mg per capsule 02-16 20:52: 37 02-16 00:00 :00 No 1{capsu le} Take 1 capsule by mouth every morning. [facility] albuterol 5 mg/mL nebulizer solution 02-16 20:51: 42 02-16 00:00 :00 No 2.5mg Inhale 2.5 mg every 6 (six) hours as needed for Wheezing or Shortness of Breath. [facility] ketorolac (TORADOL) injection 15 mg 02-08 03:00: 00 02-08 02:21 :00 No 15mg 15 mg, Slow IV Push, ONCE, 1 dose, On Thu02/08/24 at 2200, Routine [facility] iopamidol (ISOVUE 370-500 mL) injection 100 mL 02-07 22:30: 00 02-07 22:30 :00 Yes [id number] 100mL 100 mL, Intravenou s, ONCE, 1 dose, On Thu02/08/24 at 1730, Routine [facility] ipratropium -albuteroL (DUONEB) 0.5 mg-3 mg(2.5 mg base)/3 mL nebulizer solution 3 mL 02-07 21:15: 00 02-07 20:45 :00 No 3mL 3 mL, Inhalation , ONCE, 1 dose, On Thu02/08/24 at 1615, Routine [facility] morpHINE (2 mg/mL) injection 4 mg 02-07 21:15: 00 02-07 20:27 :00 No 4mg 4 mg, Slow IV Push, ONCE, 1 dose, On Thu02/08/24 at 1615, STAT [facility] ondansetron (ZOFRAN (PF)) injection 4 mg 02-07 21:15: 00 02-07 20:22 :00 No 4mg 4 mg, Slow IV Push, ONCE, 1 dose, On Thu02/08/24 at 1615, [facility] magnesium sulfate in water 2 gram/50 mL (4 %) infusion 2 g 02-07 21:00: 00 02-07 21:30 :00 No 2g 2 g, IV Piggyback, Administer over 60 Minutes, ONCE, 1 dose, On Thu02/08/24 at 1600, [facility] ipratropium -albuteroL (DUONEB) 0.5 mg-3 mg(2.5 mg base)/3 mL nebulizer solution 3 mL 02-07 20:30: 00 02-07 19:31 :00 No 3mL 3 mL, Inhalation , ONCE, 1 dose, On Thu02/08/24 at 1530, Routine [facility] HYDROcodone -acetaminop hen (NORCO) 10-325 mg tablet 1 tablet 01-13 13:15: 00 01-13 12:15 :00 No 1{tbl} 1 tablet, Oral, ONCE, 1 dose, On Thu01/14/24 at 0715, [facility] ipratropium -albuteroL (DUONEB) 0.5 mg-3 mg(2.5 mg base)/3 mL nebulizer solution 3 mL 01-13 13:00: 00 01-13 11:53 :00 No 3mL 3 mL, Inhalation , ONCE NOW, 1 dose, On Thu01/14/24 at 0700, [facility] ondansetron (ZOFRAN (PF)) injection 4 mg 01-13 11:30: 00 01-13 11:37 :00 No 4mg 4 mg, Slow IV Push, ONCE, 1 dose, On Thu01/14/24 at 0530, [facility] morpHINE (4 mg/mL) injection 4 mg 01-13 11:30: 00 01-13 11:37 :00 No 4mg 4 mg, Slow IV Push, ONCE, 1 dose, On Thu01/14/24 at 0530, STAT [facility] azithromyci n (ZITHROMAX Z-PORTER) 250 mg tablet 01-13 00:00: 00 02-16 00:00 :00 No [id number] Take 500 mg on day 1 then 250 mg on days 2-5 [facility] predniSONE 20 mg tablet 01-13 00:00: 00 02-16 00:00 :00 No [id number] Take 1 po tid x 2 days, then take 1 po bid x 3 days, then take 1 po daily x 3 days. [facility] acetaminoph en-codeine 300-30 mg tablet 01-13 00:00: 00 01-21 04:59 :00 No [id number] 1{tbl} Take 1 tablet by mouth every 6 (six) hours as needed for Pain (scale 7-10) (severe cough) for up to 7 days. Indication s: acute pain, severe cough [facility] clonazePAM 1 mg tablet 12-26 00:00: 00 02-16 00:00 :00 No 1mg Take 1 tablet by mouth at bedtime as needed for Other (anxiety). [facility] KCL (KLOR-CON M20) tablet 40 mEq 12-23 05:00: 00 12-23 05:07 :00 No 40meq 40 mEq, Oral, ONCE, 1 dose, On Thu12/22/23 at 2300, [facility] NaCl 0.9% (NS) bolus infusion 1,000 mL 12-23 05:00: 00 12-23 05:09 :00 No 1000mL at 999 mL/hr, 1,000 mL, IV Infusion, ONCE, 1 dose, On Thu12/22/23 at 2300, [facility] ondansetron (ZOFRAN (PF)) injection 4 mg 12-23 04:30: 00 12-23 04:24 :00 No 4mg 4 mg, Slow IV Push, ONCE, 1 dose, On Thu12/22/23 at 2230, [facility] maalox:diph enhydrAMINE :lidocaine 2 % viscous 1:1:1 (FIRST-MOUT HWASH BLM) oral suspension 15 mL 12-23 04:15: 00 12-23 04:17 :00 No 15mL 15 mL, Oral, ONCE, 1 dose, On Thu12/22/23 at 2215, Routine [facility] famotidine (PEPCID (PF)) injection 20 mg 12-23 04:15: 00 12-23 04:15 :00 No 20mg 20 mg, Slow IV Push, ONCE, 1 dose, On Thu12/22/23 at 2215, LAURYN [facility] HYDROcodone -acetaminop hen (NORCO) 10-325 mg tablet 1 tablet 12-22 04:30: 00 12-22 16:29 :00 No 1{tbl} 1 tablet, Oral, ONCE, 1 dose, On Thu12/21/23 at 2230, Routine [facility] pantoprazol e (PROTONIX) 80 mg in NaCl 0.9% (NS) 20 mL syringe 12-22 04:15: 00 12-22 16:14 :00 No 80mg 80 mg, IV Push, ONCE, 1 dose, On Thu12/21/23 at 2215, Administer over 2 Minutes, 20 mL [facility] iopamidol (ISOVUE 370-500 mL) injection 100 mL 12-22 03:30: 00 12-22 03:30 :00 No [id number] 100mL 100 mL, Intravenou s, ONCE, 1 dose, On Thu12/21/23 at 2130, Routine [facility] morpHINE (4 mg/mL) injection 4 mg 12-22 03:30: 00 12-22 02:16 :00 No 4mg 4 mg, Slow IV Push, ONCE, 1 dose, On Thu12/21/23 at 2130, Routine [facility] ondansetron (ZOFRAN (PF)) injection 4 mg 12-22 02:45: 00 12-22 02:02 :00 No 4mg 4 mg, Slow IV Push, ONCE, 1 dose, On Thu12/21/23 at 2045, Routine [facility] hydrocortis one 25 mg suppository 12-22 00:00: 00 Yes [id number] 25mg Insert 1 Suppositor y into rectum 2 (two) times daily as needed for Rectal itching/pa in. [facility] ondansetron 4 mg disintegrat ing tablet 12-22 00:00: 00 02-16 00:00 :00 No [id number] 4mg Take 1 tablet by mouth every 8 (eight) hours as needed for Nausea and Vomiting (N/V). [facility] amoxicillin -clavulanat e 875-125 mg per tablet 12-22 00:00: 00 01-02 05:59 :00 No [id number] 1{tbl} Take 1 tablet by mouth every 12 (twelve) hours for 10 days. [facility] methylpredn isolone sod [...] 2021-11 18:30: 00 10-14 18:30 :00 No [id number] 70mL 70 mL, Intravenou s, ONCE, 1 [...] dose, On Thu10/14/22 at 1130, Routine [facility] FENTanyl PF (SUBLIMAZE (PF)) injection 50 mcg 2021-11 16:45: 00 10-14 16:39 :00 No 50ug 50 mcg, Slow IV Push, ONCE, 1 dose, On Thu10/14/22 at 1045, Routine [facility] levoFLOXaci n 750 mg tablet 2021-11 00:00: 00 02-16 00:00 :00 No [id number] 750mg Take 1 tablet by mouth every [...] Thu02/20/22 at 0800, Until Discontinu ed, Routine [facility] methylPREDN ISolone sod succ (SOLU-MEDRO L (PF)) injection 40 mg 02-20 11:45: 00 02-20 10:43 :00 No 40mg 40 mg, Intravenou s, ONCE, 1 dose, On Thu02/20/22 at 0645, STAT [facility] foLIC acid (FOLATE) tablet 1 mg 02-20 11:45: 00 02-20 10:41 :00 No 1mg 1 mg, Oral, ONCE, 1 dose, On Thu02/20/22 at 0645, LAURYN [facility] thiamine (VITAMIN B1) injection 100 mg 02-20 11:45: 00 02-20 10:43 :00 No 100mg 100 mg, Intravenou s, ONCE, 1 dose, On Thu02/20/22 at 0645, LAURYN [facility] LORazepam (ATIVAN) injection 2 mg 02-20 11:45: 00 02-20 10:42 :00 No 2mg 2 mg, Slow IV Push, ONCE, 1 dose, [facility] 02/20/22 at 0645, STAT [facility] ipratropium -albuteroL (DUONEB) 0.5 mg-3 mg(2.5 mg base)/3 mL nebulizer solution 3 mL 02-20 10:30: 00 02-20 09:34 :00 No 3mL 3 mL, Inhalation , ONCE, 1 dose, On Kym 02/20/22 at 0530, Routine [facility] albuterol 90 mcg/actuati on inhaler 02-20 00:00: 00 Yes [id number] 2{puff} Inhale 2 Puffs every 4 (four) hours as needed for Wheezing or Shortness of Breath. [facility] triamterene -hydrochlor othiazid 37.5-25 mg tablet 02-20 00:00: 00 Yes [id number] 1{tbl} Take 1 tablet by mouth daily. [facility] chlordiazeP OXIDE 25 mg capsule 02-20 00:00: 00 Yes [id number] 25mg Take 1 capsule by mouth every 6 (six) hours as needed for Anxiety, Agitation, Heart Rate => 100 or Detox. [facility] predniSONE 10 mg tablet 02-20 00:00: 00 02-16 00:00 :00 No [id number] TAKE ONE TABLET BY MOUTH DAILY [facility] albuterol 2.5 mg /3 mL (0.083 %) nebulizer solution 02-20 00:00: 00 02-16 00:00 :00 No [id number] 2.5mg Inhale 3 mL every 4 (four) hours. May also nebulize one extra every 6 hours. [facility] budesonide- formoteroL 160-4.5 mcg/actuati on inhaler 02-20 00:00: 00 02-16 00:00 :00 No [id number] 2{puff} Inhale 2 Puffs 2 (two) times daily. [facility] albuterol 5 mg/mL [...] [place] Pneumococcal Polysaccharide, PPSV23 (PNEUMOVAX) Unknown Completed [facility] Influenza Virus Vaccine Quad IM 3+ YRS Unknown Completed [facility] SARS-COV-2 COVID-19 PFIZER VACCINE Unknown Completed [facility] SARS-COV-2 COVID-19 PFIZER VACCINE Unknown Completed [facility] Pneumococcal Polysaccharide, PPSV23 (PNEUMOVAX) Unknown Completed [facility] Influenza Virus Vaccine Quad IM 3+ YRS Unknown Completed [facility] SARS-COV-2 COVID-19 PFIZER VACCINE Unknown Completed [facility] SARS-COV-2 COVID-19 PFIZER VACCINE Unknown Completed [facility] Pneumococcal Polysaccharide, PPSV23 (PNEUMOVAX) [facility] Influenza Virus Vaccine Quad IM 3+ YRS Unknown Completed [facility] SARS-COV-2 COVID-19 PFIZER VACCINE Unknown Completed [facility] SARS-COV-2 COVID-19 PFIZER VACCINE Unknown Completed [facility] Pneumococcal Polysaccharide, PPSV23 (PNEUMOVAX) Unknown Completed [facility] Influenza Virus Vaccine Quad IM 3+ YRS Unknown Completed [facility] SARS-COV-2 COVID-19 PFIZER VACCINE Unknown Completed [facility] SARS-COV-2 COVID-19 PFIZER VACCINE Unknown Completed [facility] Pneumococcal Polysaccharide, PPSV23 (PNEUMOVAX) Unknown Completed [facility] Influenza Virus Vaccine Quad IM 3+ YRS Unknown Completed [facility] SARS-COV-2 COVID-19 PFIZER VACCINE Unknown Completed [facility] SARS-COV-2 COVID-19 PFIZER VACCINE Unknown Completed [facility] Pneumococcal Polysaccharide, PPSV23 (PNEUMOVAX) Unknown Completed [facility] Influenza Virus Vaccine Quad IM 3+ YRS Unknown Completed [facility] SARS-COV-2 COVID-19 PFIZER VACCINE Unknown Completed [facility] SARS-COV-2 COVID-19 PFIZER VACCINE Unknown Completed [facility] Pneumococcal Polysaccharide, PPSV23 (PNEUMOVAX) Unknown Completed [facility] Influenza Virus Vaccine Quad IM 3+ YRS Unknown Completed [facility] SARS-COV-2 COVID-19 PFIZER VACCINE Unknown Completed [facility] SARS-COV-2 COVID-19 PFIZER VACCINE Unknown Completed [facility] Pneumococcal Polysaccharide, PPSV23 (PNEUMOVAX) Unknown Completed [facility] Influenza Virus Vaccine Quad IM 3+ YRS Unknown Completed [facility] SARS-COV-2 COVID-19 PFIZER VACCINE Unknown Completed [facility] SARS-COV-2 COVID-19 PFIZER VACCINE Unknown Completed [facility] Vital Signs Vital Name Observation Time Observation Value Comments S ource Systolic blood pressure 2024-02-18 01:57:00 134 mm[Hg] [facility] Diastolic blood pressure 2024-02-18 01:57:00 94 mm[Hg] [facility] Body height 2024-02-18 01:57:00 162.6 cm [facility] Body weight 2024-02-18 01:57:00 79.379 kg [facility] BMI 2024-02-18 01:57:00 30.04 kg/m2 [facility] Heart rate 2024-02-18 01:53:00 110 /min [facility] Body temperature 2024-02-18 01:53:00 36.61 Debbie [facility] Respiratory rate 2024-02-18 01:53:00 24 /min [facility] Oxygen saturation in Arterial blood by Pulse oximetry 2024-02-18 01:53:00 93 /min [facility] Systolic blood pressure 2024-02-09 01:54:05 150 mm[Hg] [facility] Diastolic blood pressure 2024-02-09 01:54:05 91 mm[Hg] [facility] Heart rate 2024-02-09 01:54:05 87 /min [facility] Respiratory rate 2024-02-09 01:54:05 17 /min [facility] Oxygen saturation in Arterial blood by Pulse oximetry 2024-02-09 01:54:05 93 /min [facility] Body temperature 2024-02-09 01:45:00 36.67 Debbie [facility] Body height 2024-02-09 01:45:00 162.6 cm [facility] Body weight 2024-02-09 01:45:00 81.194 kg [facility] BMI 2024-02-09 01:45:00 30.73 kg/m2 [facility] Respiratory rate 2024-02-08 21:00:00 18 /min [facility] Oxygen saturation in Arterial blood by Pulse oximetry 2024-02-08 21:00:00 96 /min [facility] Systolic blood pressure 2024-02-08 20:27:00 164 mm[Hg] [facility] Diastolic blood pressure 2024-02-08 20:27:00 90 mm[Hg] [facility] Heart rate 2024-02-08 20:27:00 83 /min [facility] Body temperature 2024-02-08 19:12:00 36.83 Debbie [facility] Body height 2024-02-08 19:12:00 162.6 cm [facility] Body weight 2024-02-08 19:12:00 81.194 kg [facility] BMI 2024-02-08 19:12:00 30.73 kg/m2 [facility] Heart rate 2024-01-14 12:15:00 98 /min [facility] Body temperature 2024-01-14 12:15:00 36.56 Debbie [facility] Respiratory rate 2024-01-14 12:15:00 14 /min [facility] Oxygen saturation in Arterial blood by Pulse oximetry 2024-01-14 12:15:00 95 /min [facility] Systolic blood pressure 2024-01-14 12:00:00 140 mm[Hg] [facility] Diastolic blood pressure 2024-01-14 12:00:00 90 mm[Hg] [facility] Body height 2024-01-14 10:51:00 162.6 cm [facility] Body weight 2024-01-14 10:51:00 81.194 kg [facility] BMI 2024-01-14 10:51:00 30.73 kg/m2 [facility] Systolic blood pressure 2023-12-23 05:02:00 133 mm[Hg] [facility] Diastolic blood pressure 2023-12-23 05:02:00 84 mm[Hg] [facility] Heart rate 2023-12-23 05:02:00 78 /min [facility] Body temperature 2023-12-23 05:02:00 36.17 Debbie [facility] Respiratory rate 2023-12-23 05:02:00 17 /min [facility] Oxygen saturation in Arterial blood by Pulse oximetry 2023-12-23 05:02:00 91 /min [facility] Body height 2023-12-23 03:45:00 162.6 cm [facility] Body weight 2023-12-23 03:45:00 81.194 kg [facility] BMI 2023-12-23 03:45:00 30.73 kg/m2 [facility] Systolic blood pressure 2023-12-22 02:08:00 143 mm[Hg] [facility] Diastolic blood pressure 2023-12-22 02:08:00 92 mm[Hg] [facility] Heart rate 2023-12-22 02:08:00 81 /min [facility] Respiratory rate 2023-12-22 02:08:00 13 /min [facility] Oxygen saturation in Arterial blood by Pulse oximetry 2023-12-22 02:08:00 95 /min [facility] Body temperature 2023-12-22 01:33:00 36.72 Debbie [facility] Body height 2023-12-22 01:33:00 162.6 cm [facility] Body weight 2023-12-22 01:33:00 81.239 kg [facility] BMI 2023-12-22 01:33:00 30.74 kg/m2 [facility] Systolic blood pressure 2023-11-11 02:00:00 127 mm[Hg] [facility] Diastolic blood pressure 2023-11-11 02:00:00 87 mm[Hg] [facility] Heart rate 2023-11-11 02:00:00 79 /min [facility] Respiratory rate 2023-11-11 02:00:00 20 /min [facility] Oxygen saturation in Arterial blood by Pulse oximetry 2023-11-11 02:00:00 98 /min [facility] Body temperature 2023-11-11 01:31:00 36.28 Debbie [facility] Body height 2023-11-11 01:31:00 162.6 cm [facility] Body weight 2023-11-11 01:31:00 79.379 kg [facility] BMI 2023-11-11 01:31:00 30.04 kg/m2 [facility] Systolic blood pressure 2023-10-27 06:54:00 133 mm[Hg] [facility] Diastolic blood pressure 2023-10-27 06:54:00 94 mm[Hg] [facility] Heart rate 2023-10-27 06:54:00 95 /min [facility] Body temperature 2023-10-27 06:54:00 36.44 Debbie [facility] Respiratory rate 2023-10-27 06:54:00 22 /min [facility] Body height 2023-10-27 06:54:00 162.6 cm [facility] Body weight 2023-10-27 06:54:00 78.472 kg [facility] BMI 2023-10-27 06:54:00 29.70 kg/m2 [facility] Oxygen saturation in Arterial blood by Pulse oximetry 2023-10-27 06:54:00 94 /min [facility] Systolic blood pressure 2022-10-14 19:43:00 111 mm[Hg] [facility] Diastolic blood pressure 2022-10-14 19:43:00 74 mm[Hg] [facility] Heart rate 2022-10-14 19:43:00 98 /min [facility] Body temperature 2022-10-14 19:43:00 36.39 Debbie [facility] Respiratory rate 2022-10-14 19:43:00 22 /min [facility] Oxygen saturation in Arterial blood by Pulse oximetry 2022-10-14 19:43:00 94 /min [facility] Body height 2022-10-14 16:13:00 162.6 cm [facility] Body weight 2022-10-14 16:13:00 81.647 kg [facility] BMI 2022-10-14 16:13:00 30.90 kg/m2 [facility] Systolic blood pressure 2022-03-12 10:13:00 119 mm[Hg] [facility] Diastolic blood pressure 2022-03-12 10:13:00 75 mm[Hg] [facility] Heart rate 2022-03-12 10:13:00 105 /min [facility] Body temperature 2022-03-12 10:13:00 37.28 Debbie [facility] Respiratory rate 2022-03-12 10:13:00 19 /min [facility] Body height 2022-03-12 10:13:00 162.6 cm [facility] Body weight 2022-03-12 10:13:00 99.791 kg [facility] BMI 2022-03-12 10:13:00 37.76 kg/m2 [facility] Oxygen saturation in Arterial blood by Pulse oximetry 2022-03-12 10:13:00 96 /min [facility] Systolic blood pressure 2022-02-20 11:57:00 155 mm[Hg] [facility] Diastolic blood pressure 2022-02-20 11:57:00 88 mm[Hg] [facility] Heart rate 2022-02-20 11:57:00 105 /min [facility] Respiratory rate 2022-02-20 11:57:00 18 /min [facility] Oxygen saturation in Arterial blood by Pulse oximetry 2022-02-20 11:57:00 100 /min [facility] Body temperature 2022-02-20 09:25:00 37 Debbie [facility] Body height 2022-02-20 09:25:00 162.6 cm [facility] Body weight 2022-02-20 09:25:00 96.163 kg [facility] BMI 2022-02-20 09:25:00 36.39 kg/m2 [facility] Procedures Procedure Date / Time Performed Performing Clinician Source AC PANEL 20 + LACTIC ACID 2024-02-08 20:47:00 Christina Villarreal [facility] XR CHEST 1 VW 2024-02-08 19:47:00 Christina Villarreal [facility] URINALYSIS 2024-02-08 19:36:00 [facility] MAGNESIUM 2024-02-08 19:25:00 [facility] TROPONIN I 2024-02-08 19:25:00 Christina Villarreal [facility] COMP. METABOLIC PANEL ([id number]) 2024-02-08 19:25:00 Christina Villarreal [facility] ETHANOL 2024-02-08 19:25:00 [facility] CBC WITH DIFF 2024-02-08 19:25:00 Christina Villarreal [facility] N-TERMINAL PRO-BNP 2024-02-08 19:25:00 Christina Villarreal [facility] EKG-12 LEAD 2024-01-14 [facility]00[facility]-14 11:11:00 Jac Navarro [facility] TROPONIN I 2024-01-14 11:11:00 Jac Navarro [facility] COMP. METABOLIC PANEL ([id number]) 2024-01-14 11:11:00 Jac Navarro [facility] ETHANOL 2024-01-14 11:11:00 Jac Navarro [facility] CBC WITH DIFF 2024-01-14 11:11:00 Jac Navarro [facility] N-TERMINAL PRO-BNP 2024-01-14 11:11:00 Jac Navarro [facility] COVID-19 (ID NOW RAPID TESTING) 2024-01-14 11:11:00 Jac Navarro [facility] CONSENT/REFUSAL FOR DIAGNOSIS AND TREATMENT 2024-01-14 10:44:32 Doctor Unassigned, [facility] LIPASE 2023-12-23 04:17:00 Tyler Rowe Un [facility] COMP. METABOLIC PANEL ([id number]) 2023-12-23 04:17:00 Tyler Rowe [facility] CBC WITH DIFF 2023-12-23 04:17:00 Tyler Rowe U [facility] URINALYSIS 2023-12-23 04:17:00 Tyler Rowe Un [facility] CONSENT/REFUSAL FOR DIAGNOSIS AND TREATMENT 2023-12-23 03:40:32 Doctor Unassigned, [facility] CT ABDOMEN PELVIS W CONTRAST 2023-12-22 02:31:05 Melinda Maciel [facility] LIPASE 2023-12-22 01:58:[address] [facility] COMP. METABOLIC PANEL (87755) 2023-12-22 01:58:00 Melinda Maciel [facility] ETHANOL 2023-12-22 01:58:[address] [facility] CBC WITH DIFF 2023-12-22 01:58:00 Melinda Maciel [facility] PROTHROMBIN TIME / INR 2023-12-22 [facility]:58[facility]23-12-22 01:58:[address] [facility] CONSENT/REFUSAL FOR DIAGNOSIS AND TREATMENT 2023-12-22 01:19:14 Doctor Unassigned, [facility] NOTICE OF PRIVACY PRACTICES 2023-11-11 01:24:24 Doctor Unassigned, [facility] CONSENT/REFUSAL FOR DIAGNOSIS AND TREATMENT 2023-11-11 01:23:54 Doctor Unassigned, [facility] COVID-19 (ID NOW RAPID TESTING) 2023-10-27 07:09:00 Jac Navarro [facility] NOTICE OF PRIVACY PRACTICES 2023-10-27 06:49:48 Doctor Unassigned, [facility] CONSENT/REFUSAL FOR DIAGNOSIS AND TREATMENT 2023-10-27 06:47:40 Doctor Unassigned, [facility] CT ABDOMEN PELVIS W CONTRAST 2022-10-14 17:33:00 Melinda Maciel [facility] XR CHEST 1 VW 2022-10-14 17:10:37 [facility] TROPONIN I 2022-10-14 16:37:[address] [facility] COMP. METABOLIC PANEL ([id number]) 2022-10-14 16:37:00 Melinda Maciel [facility] CBC WITH DIFF 2022-10-14 16:37:00 Melinda Maciel [facility] PROTHROMBIN TIME / INR 2022-10-14 16:37:00 Wali Maciel [facility] URINALYSIS 2022-10-14 16:37:[address] [facility] N-TERMINAL PRO-BNP 2022-10-14 16:37:00 [facility] CONSENT/REFUSAL FOR DIAGNOSIS AND TREATMENT 2022-10-14 15:56:36 Doctor Unassigned, [facility] CONSENT/REFUSAL FOR DIAGNOSIS AND TREATMENT 2022-03-12 10:03:12 Doctor Unassigned, [facility] XR CHEST 1 VW 2022-02-20 09:59:00 Christy Holliday [facility] LIPASE 2022-02-20 09:30:00 Christy Holliday [facility] TROPONIN I 2022-02-20 09:30:00 Christy Holliday [facility] COMP. METABOLIC PANEL (74430) 2022-02-20 09:30:00 Christy Holliday [facility] CBC WITH DIFF 2022-02-20 09:30:00 Christy [facility] N-TERMINAL PRO-BNP 2022-02-20 09:30:00 Christy Holliday [facility] NOTICE OF PRIVACY PRACTICES 2022-02-20 09:15:02 Doctor Unassigned, [facility] CONSENT/REFUSAL FOR DIAGNOSIS AND TREATMENT 2022-02-20 09:14:47 Doctor Unassigned, [facility] Encounters Start Date/Time End Date/Time Encounter Type Admission Type Attending [facility] Care Department Encounter ID Source 2024-04-14 16:30:00 2024-04-14 16:30:00 Outpatient DARIEN LOBO [id number] Maria Elena [facility] 2024-04-12 11:00:00 2024-04-12 11:00:00 Outpatient MINNA ORTA [id number] Maria Elena [facility] 2024-04-12 11:00:00 2024-04-12 11:00:00 Outpatient WENDY BROWNLEE [id number] [facility] 2024-04-12 00:00:00 2024-04-12 00:00:00 Outpatient SHARATH HALEY [id number] [facility] 2024-04-05 11:30:00 2024-04-05 11:30:00 Outpatient DARIEN LOBO [id number] [facility] 2024-04-05 00:00:00 2024-04-05 00:00:00 Outpatient DARIEN LOBO MARIA ELENA [id number] Maria Elena [facility] 2024-03-28 00:00:00 2024-03-28 00:00:00 Outpatient DARIEN LOBO MARIA ELENA [id number] Maria Elena [facility] 2024-03-15 08:30:00 2024-03-15 08:30:00 Outpatient KEMWENDY MARIA ELENA BECERRA [id number] [facility] 2024-02-17 20:58:00 2024-02-17 21:44:00 Emergency X PEG CAMP [facility] ERT [id number] [facility] 2024-02-17 20:58:00 2024-02-17 21:44:00 Emergency Peg Camp [facility] 1.2.840.114 350.1.13.10 4.2.7.2.686 [id number] [facility] 2024-02-08 20:38:00 2024-02-08 21:40:00 Emergency X DEMETRIA DAVENPORT [facility] ERT [id number] [facility] 2024-02-08 20:38:00 2024-02-08 21:40:00 Emergency Demetria Davenport [facility] 1.2.840.114 350.1.13.10 4.2.7.2.686 [id number] 084 [id number] [facility] 2024-02-08 14:08:00 2024-02-08 17:06:00 Emergency Christina Villarreal [facility] 1.2.840.114 350.1.13.10 4.2.7.2.686 [id number] 084 [id number] [facility] 2024-01-14 04:46:00 2024-01-14 06:23:00 Emergency X TERESSA JAC [facility] ERT [id number] [facility] 2024-01-14 04:46:00 2024-01-14 06:23:00 Emergency Jac Navarro [facility] 1.2.840.114 350.1.13.10 4.2.7.2.686 [id number] 084 [id number] [facility] 2023-12-22 21:51:00 2023-12-22 23:13:00 Emergency X TYLER ROWE [facility] ERT [id number] [facility] 2023-12-22 21:51:00 2023-12-22 23:13:00 Emergency AdeNi bocanegrablade [facility] 1.2.840.114 350.1.13.10 4.2.7.2.686 [id number] 084 [id number] [facility] 2023-12-21 19:36:00 2023-12-21 21:52:00 Emergency X MELINDA MACIEL [facility] ERT [id number] [facility] 2023-12-21 19:36:00 2023-12-21 21:52:00 Emergency Melinda Maciel [facility] 1.2.840.114 350.1.13.10 4.2.7.2.686 [id number] 084 [id number] [facility] 2023-11-10 19:29:00 2023-11-10 20:14:00 Emergency X CHRISTY HOLLIDAY [facility] ERT [id number] [facility] 2023-11-10 19:29:00 2023-11-10 20:14:00 Emergency Christy Holliday [facility] 1.2.840.114 350.1.13.10 4.2.7.2.686 [id number] 084 [id number] [facility] 2023-10-27 00:49:00 2023-10-27 01:41:00 Emergency X JAC NAVARRO [facility] ERT [id number] [facility] 2023-10-27 00:49:00 2023-10-27 01:41:00 Emergency Jac Navarro [facility] 1.2.840.114 350.1.13.10 4.2.7.2.686 [id number] [id number] [facility] 2023-07-15 00:00:00 2023-07-15 00:00:00 Outpatient PRELEE DARIEN MARIA ELENA BECERRA [id number] [facility] 2023-06-16 11:30:00 2023-06-16 11:30:00 Outpatient PRELEE, DARIEN BECERRA [id number] [facility] 2023-05-18 00:00:00 2023-05-18 00:00:00 Outpatient GROUPMARIA ELENA [id number] [facility] 2022-10-14 10:07:00 2022-10-14 14:39:00 Emergency X MELINDA MACIEL [facility] ERT [id number] [facility] 2022-10-14 10:07:00 2022-10-14 14:39:00 Emergency Melinda Maciel [facility] 1.2.840.114 350.1.13.10 4.2.7.2.686 [id number] [id number] [facility] 2022-03-12 05:15:00 2022-03-12 06:41:00 Emergency X DEEPACHRISTY LOPEZ [facility] ERT [id number] [facility] 2022-03-12 05:15:00 2022-03-12 06:41:00 Emergency Deepamorena Manueltera Olson [facility] 1.2.840.114 350.1.13.10 4.2.7.2.686 [id number] 084 [id number] [facility] 2022-02-20 04:17:00 2022-02-20 07:16:00 Emergency X DEEPAMIOJORGE LCHRISTY [facility] ERT [id number] [facility] 2022-02-20 04:17:2022-02-20 07:16:00 Emergency Christy Holliday [facility] 1.2.840.114 350.1.13.10 4.2.7.2.686 [id number] [id number] [facility] 2021-02-03 11:10:00 2021-02-03 11:10:00 Outpatient R DENISE SUNG [facility] [id number] [facility] 2021-01-13 11:20:00 2021-01-13 11:20:00 Outpatient [facility] [id number] [facility] 2020-11-10 08:20:00 2020-11-10 08:20:00 Outpatient KARLEY ESTRADA [facility] [id number] [facility] Results Test Description Test Time Test Comments Results Result Co mments Source [facility] + Lactic [id number] 20:52:47* Test Item Value Reference Range Interpretation Comme nts PH (test code = 2) 7.39 7.35-7.45 PCO2 (test code = 0102808993) 42 35-45 PO2 (test code = 8553738257) 76 80-100 L HCO3 (test code = 4542656842) 25 22-26 BE (test code = 4773779407) -0.1 -3.0-3.0 THB (test code = 4035116384) 14.3 g/dL 13.5-18.0 %O2HB (test code = 6810871853) 85.8 % 94.0-99.0 L %COHB ART (test code = 6160183563) 9.0 % 0.0-1.5 H %METHB ART (test code = 5515901143) 0.3 % 0.4-1.5 L VOL%O2 ART (test code = 0167739839) 17.3 % 15.0-23.0 NA (test code = 4248889865) 140 mmol/L 135-145 K+ (test code = 7111783345) 4.1 mmol/L 3.5-5.0 AC CA IONZ (test code = 0051428735) 4.50 mg/dL 4.50-5.30 GLUCOSE (test code = 0246378950) 105 mg/dL 70-110 LACTIC ACID (test code = 2372823017) 2.60 mmol/L 0.50-2.20 H Lab Interpretation (test cod e = 78373-2) [facility] [id number] 20:34:14* Test Item Value Reference Range Interpretation Comme nts TROPONIN I (test code = 4162667300) 0.008 ng/mL <=0.034 LOUISE (test code = [...] of biotin. Lab Interpretation (test code = 41341-4) [facility] Mgj-[id number] 20:31:35* Test Item Value Reference Range Interpretation Comme nts NT-proBNP (test code = 79587-5) 188 pg/mL <=125 LOUISE (test code = LOUISE) Result Indeterminate-Consid er causes of NT-proBNP elevation other than Heart failure such as acute coronary syndrome, pulmonary embolism, pulmonary hypertension, sepsis, stroke, and renal dysfunction. Lab Interpretation (test code = 64228-1) [facility] (44308)2024-02-08 20:21:10* Test Item Value Reference Range Interpretation Comme nts NA (test code = 5302971679) 135 mmol/L 135-145 K (test code = 3914545950) 4.5 mmol/L 3.5-5.0 CL (test code = 9134813217) 100 mmol/L 98-108 CO2 TOTAL (test code = 8812653248) 22 mmol/L 23-31 L AGAP (test code = 5229664160) 13 2-16 BUN (test code = 4181952096) 8 mg/dL 7-23 GLUCOSE (test code = 5381373655) 97 mg/dL 70-110 CREATININE (test code = 2160-0) 0.65 mg/dL 0.60-1.25 TOTAL BILI (test code = 5519436453) 0.4 mg/dL 0.1-1.1 CALCIUM (test code = 4865098076) 9.4 mg/dL 8.6-10.6 T PROTEIN (test code = 8678291400) 8.2 g/dL 6.3-8.2 ALBUMIN (test code = 5812120865) 4.7 g/dL 3.5-5.0 ALK PHOS (test code = 3962356017) 76 U/L 34-122 ALTv (test code = 1742-6) 33 U/L 5-50 AST(SGOT) (test code = 1581955030) 54 U/L 13-40 H eGFR (test code = 85380-0) 111.3 mL/min/1.73m2 CKD-EPI eGFR (2020). Assuming creatinine has been stable day-to-day for at least three months, the eGFR indicates Category G1 (>= 90 mL/min/1.73 m2) Lab Interpretation (test code = 48493-6) [facility] 20:21:10* Test Item Value Reference Range Interpretation Comme nts MAGNESIUM (test code = 4251573245) 2.1 mg/dL 1.7-2.4 Lab Interpretation (test cod e = 11335-4) [facility] 1 [id number] 20:07:21EXAM: XR CHEST 1 VW COMPARISON: 01/14/2024 HISTORY: sob FINDINGS: Lungs: Slightly hyperexpanded lungswith subtle progression of interstitialprominence. Trace pleural effusions could be present. Heart/Mediastinum: Stable cardiomegaly. Bones and soft tissues: No osseous abnormality is visualized.[facility] Cbc with [id number] 20:04:26* Test Item Value Reference Range Interpretation [...] 33.8 g/dL 31.2-35.0 RDW-SD (test code = 82760-9) 50.5 fL 38.5-51.6 RDW-CV (test code = 788-0) 14.3 % 12.1-15.4 PLT (test code = 777-3) 206 150-328 MPV (test code = 14588-7) 9.1 fL 9.8-13.0 L NRBC/100 WBC (test code = 0453807655) 0.0 0.0-10.0 NRBC x10^3 (test code = 0310115570) See_Comment [Automated messa ge] The system which generated this result transmitted reference range: 10*3/?L. The reference range was not used to interpret this result as normal/abnormal. GRAN MAT (NEUT) % (test code = 770-8) 81.0 % IMM GRAN % (test code = 9268289354) 1.20 % LYMPH % (test code = 736-9) 10.9 % MONO % (test code = 5905-5) 6.8 % EOS % (test code = 713-8) 0.0 % BASO % (test code = 706-2) 0.1 % GRAN MAT x10^3(ANC) (test code = 9364066075) 9.31 10*3/uL 1.99-6.95 H IMM GRAN x10^3 (test code = 4250258165) 0.14 10*3/uL 0.00-0.06 H LYMPH x10^3 (test code = 731-0) 1.25 10*3/uL 1.09-3.23 MONO x10^3 (test code = 742-7) 0.78 10*3/uL 0.36-1.02 EOS x10^3 (test code = 711-2) 0.06-0.53 L BASO x10^3 (test code = 704-7) 0.01-0.09 Lab Interpretation (test code = 32115-0) [facility]EL (13042)2023-12-23 04:53:26* Test Item Value Reference Range Interpretation Comme nts NA (test code = 7879992684) 135 mmol/L 135-145 K (test code = 6833511944) 3.2 mmol/L 3.5-5.0 L CL (test code = 3656323764) 104 mmol/L 98-108 CO2 TOTAL (test code = 7249472310) 23 mmol/L 23-31 AGAP (test code = 6476231158) 8 2-16 BUN (test code = 9355539359) 11 mg/dL 7-23 GLUCOSE (test code = 2613471625) 82 mg/dL 70-110 CREATININE (test code = 2160-0) 0.64 mg/dL 0.60-1.25 TOTAL BILI (test code = 2066275980) 0.5 mg/dL 0.1-1.1 CALCIUM (test code = 8565213281) 8.8 mg/dL 8.6-10.6 T PROTEIN (test code = 5534972194) 6.7 g/dL 6.3-8.2 ALBUMIN (test code = 0049457290) 4.1 g/dL 3.5-5.0 ALK PHOS (test code = 1210022671) 46 U/L 34-122 ALTv (test code = 1742-6) 21 U/L 5-50 AST(SGOT) (test code = 8406120981) 43 U/L 13-40 H eGFR (test code = 51612-1) 111.8 mL/min/1.73m2 CKD-EPI eGFR (2020). Assuming creatinine has been stable day-to-day for at least three months, the eGFR indicates Category G1 (>= 90 mL/min/1.73 m2) Lab Interpretation (test code = 50948-1) [facility] 04:53:26* Test Item Value Reference Range Interpretation Comme nts LIPASE (test code = 8422898876) 105 U/L 0-220 Lab Interpretation (test cod e = 63179-7) Normal [facility] WITH [id number] 04:34:24* Test Item Value Reference Range Interpretation [...] 33.0 g/dL 31.2-35.0 RDW-SD (test code = 04402-1) 50.9 fL 38.5-51.6 RDW-CV (test code = 788-0) 13.7 % 12.1-15.4 PLT (test code = 777-3) 232 150-328 MPV (test code = 35079-2) 8.7 fL 9.8-13.0 L NRBC/100 WBC (test code = 8746704076) 0.0 0.0-10.0 NRBC x10^3 (test code = 1522432321) See_Comment [Automated messa ge] The system which generated this result transmitted reference range: 10*3/?L. The reference range was not used to interpret this result as normal/abnormal. GRAN MAT (NEUT) % (test code = 770-8) 58.8 % IMM GRAN % (test code = 3033083366) 0.90 % LYMPH % (test code = 736-9) 27.8 % MONO % (test code = 5905-5) 10.5 % EOS % (test code = 713-8) 1.3 % BASO % (test code = 706-2) 0.7 % GRAN MAT x10^3(ANC) (test code = 7939953983) 5.68 10*3/uL 1.99-6.95 IMM GRAN x10^3 (test code = 9844814414) 0.09 10*3/uL 0.00-0.06 H LYMPH x10^3 (test code = 731-0) 2.69 10*3/uL 1.09-3.23 MONO x10^3 (test code = 742-7) 1.02 10*3/uL 0.36-1.02 EOS x10^3 (test code = 711-2) 0.13 10*3/uL 0.06-0.53 BASO x10^3 (test code = 704-7) 0.07 10*3/uL 0.01-0.09 Lab Interpretation (test code = 87515-0) [facility] W [id number] 03:32:43Exam: CT Abdomen and Pelvis With Contrast, [...] Interpretation Comme nts ALCOHOL (test code = 9420842970) 117 mg/dL LOUISE (test code = LOUISE) <10 Zetdstll71-650 Toxic>100 Depression of INFORMATION SECURITY MANAGER>400 Fatalities Reported [facility] Met[facility] Panel (98485)2023-12-22 02:31:43* Test Item Value Reference Range Interpretation Comme nts NA (test code = 4513193468) 133 mmol/L 135-145 L K (test code = 4045915462) 3.3 mmol/L 3.5-5.0 L CL (test code = 2446640321) 102 mmol/L 98-108 CO2 TOTAL (test code = 9709976808) 25 mmol/L 23-31 AGAP (test code = 8035024909) 6 2-16 BUN (test code = 0742449559) 11 mg/dL 7-23 GLUCOSE (test code = 3932302595) 75 mg/dL 70-110 CREATININE (test code = 3102672039) 0.51 mg/dL 0.60-1.25 L TOTAL BILI (test code = 1643878901) 0.5 mg/dL 0.1-1.1 CALCIUM (test code = 4015193430) 8.9 mg/dL 8.6-10.6 T PROTEIN (test code = 6347369290) 7.2 g/dL 6.3-8.2 ALBUMIN (test code = 8931727909) 4.5 g/dL 3.5-5.0 ALK PHOS (test code = 5849144629) 46 U/L 34-122 ALTv (test code = 1742-6) 15 U/L 5-50 AST(SGOT) (test code = 3598428919) 24 U/L 13-40 eGFR (test code = 83611-7) 119.7 mL/min/1.73m2 CKD-EPI eGFR (2020). Assuming creatinine has been stable day-to-day for at least three months, the eGFR indicates Category G1 (>= 90 mL/min/1.73 m2) Lab Interpretation (test code = 57853-1) [facility] 02:31:43* Test Item Value Reference Range Interpretation Comme nts LIPASE (test code = 5639271307) 121 U/L 0-220 Lab Interpretation (test cod e = 23298-9) Normal [facility]field[facility] Time / [id number] 02:21:02* Test Item Value Reference Range Interpretation Comme [facility] PROTIME PATIENT (test code = 5964-2) 10.5 10.1-12.6 INR (test code = 6301-6) 0.9 Normal INR <1.1; Warfarin Therapeutic range 2.0 to 3.0 or 2.5 to 3.5, depending upon the indications. Lab Interpretation (test code = 71436-1) Normal [facility] with [id number] 02:14:04* Test Item Value Reference Range Interpretation [...] 34.0 g/dL 31.2-35.0 RDW-SD (test code = 17956-2) 49.1 fL 38.5-51.6 RDW-CV (test code = 788-0) 13.5 % 12.1-15.4 PLT (test code = 777-3) 260 150-328 MPV (test code = 39772-2) 8.7 fL 9.8-13.0 L NRBC/100 WBC (test code = 0789592425) 0.0 0.0-10.0 NRBC x10^3 (test code = 7609821885) See_Comment [Automated messa ge] The system which generated this result transmitted reference range: 10*3/?L. The reference range was not used to interpret this result as normal/abnormal. GRAN MAT (NEUT) % (test code = 770-8) 64.3 % IMM GRAN % (test code = 3774594361) 0.90 % LYMPH % (test code = 736-9) 24.2 % MONO % (test code = 5905-5) 9.1 % EOS % (test code = 713-8) 0.7 % BASO % (test code = 706-2) 0.8 % GRAN MAT x10^3(ANC) (test code = 9136707066) 8.73 10*3/uL 1.99-6.95 H IMM GRAN x10^3 (test code = 1803023101) 0.12 10*3/uL 0.00-0.06 H LYMPH x10^3 (test code = 731-0) 3.28 10*3/uL 1.09-3.23 H MONO x10^3 (test code = 742-7) 1.23 10*3/uL 0.36-1.02 H EOS x10^3 (test code = 711-2) 0.10 10*3/uL 0.06-0.53 BASO x10^3 (test code = 704-7) 0.11 10*3/uL 0.01-0.09 H Lab Interpretation (test code = 19272-2) [facility] [id number] 10:16:22* Test Item Value Reference Range Interpretation Comments TROPONIN I (test code = 8253603135) 0.007 ng/mL See_Comment [Automated message] The system [...] of biotin. Lab Interpretation (test code = 40174-2) Normal [facility] [id number] 10:13:01* Test Item Value Reference Range Interpretation Comme nts NT-proBNP (test code = 1374222475) 52 pg/mL See_Comment [Automated message] The system which generated this result transmitted reference range: <=125. The reference range was not used to interpret this result as normal/abnormal. LOUISE (test code = LOUISE) Biotin has been reported to cause a negative bias, interpret results relative to patient's use of biotin. Lab Interpretation (test code = 69437-4) Normal [facility]. METABOLIC PANEL (92464)2022-02-20 10:04:02* Test Item Value Reference Range Interpretation Comme nts NA (test code = 4738388863) 137 mmol/L 135-145 K (test code = 9814262450) 3.6 mmol/L 3.5-5.0 CL (test code = 1266142756) 99 mmol/L 98-108 CO2 TOTAL (test code = 8048099846) 25 mmol/L 23-31 AGAP (test code = 0759866184) 2-16 BUN (test code = 6532882100) 6 mg/dL 7-23 L GLUCOSE (test code = 6644611181) 88 mg/dL 70-110 CREATININE (test code = 8789653396) 0.55 mg/dL 0.60-1.25 L TOTAL BILI (test code = 7837812182) 0.8 mg/dL 0.1-1.1 CALCIUM (test code = 0140700946) 8.9 mg/dL 8.6-10.6 T PROTEIN (test code = 2720732708) 7.5 g/dL 6.3-8.2 ALBUMIN (test code = 8632364024) 4.8 g/dL 3.5-5.0 ALK PHOS (test code = 7386385679) 113 U/L 34-122 ALTv (test code = 1742-6) 84 U/L 5-50 H AST(SGOT) (test code = 3570468648) 107 U/L 13-40 H eGFR (test code = 4258476814) mL/min/1.73m2 LOUISE (test code = LOUISE) Association [...] imaging tests). Lab Interpretation (test code = 84000-9) [facility], [id number] 10:03:21* Test Item Value Reference Range Interpretation Comme [facility] LIPASE (test code = 9012382256) 193 U/L 0-220 Lab Interpretation (test cod e = 86833-9) [facility] WITH [id number] 09:39:17* Test Item Value Reference Range Interpretation Comme nts WBC (test code = 6690-2) See_Comment [Automated [employer]eter[employer]ero] The system which generated this result transmitted reference range: 4.20 - 10.70 10*3/?L. The reference range was not used to interpret this result as normal/abnormal. RBC (test code = 789-8) See_Comment [Automated [employer]] The system which generated this result transmitted [...] g/dL 31.2-35.0 H RDW-SD (test code = 83119-7) 44.4 fL 38.5-51.6 RDW-CV (test code = 788-0) 11.9 % 12.1-15.4 L PLT (test code = 777-3) See_Comment [Automated [employer]] The system which generated this result transmitted reference range: 150 - 328 10*3/?L. The reference range was not used to interpret this result as normal/abnormal. MPV (test code = 92603-2) 9.2 fL 9.8-13.0 L NRBC/100 WBC (test code = 3994953979) See_Comment [Automated [employer]] The system which generated this result transmitted reference range: 0.0 - 10.0 /100 WBCs. The reference range was not used to interpret this result as normal/abnormal. NRBC x10^3 (test code = 9995967406) <0.01 See_Comment [Automated [employer]] The system which generated this result transmitted reference range: 10*3/?L. The reference range was not used to interpret this result as normal/abnormal. GRAN MAT (NEUT) % (test code = 770-8) 69.9 % IMM GRAN % (test code = 1806976270) 1.50 % LYMPH % (test code = 736-9) 18.9 % MONO % (test code = 5905-5) 7.0 % EOS % (test code = 713-8) 1.9 % BASO % (test code = 706-2) 0.8 % GRAN MAT x10^3(ANC) (test code = 0873677612) 7.15 10*3/uL 1.99-6.95 H IMM GRAN x10^3 (test code = 6913852088) 0.15 10*3/uL 0.00-0.06 H LYMPH x10^3 (test code = 731-0) 1.93 10*3/uL 1.09-3.23 MONO x10^3 (test code = 742-7) 0.72 10*3/uL 0.36-1.02 EOS x10^3 (test code = 711-2) 0.19 10*3/uL 0.06-0.53 BASO x10^3 (test code = 704-7) 0.08 10*3/uL 0.01-0.09 Lab Interpretation (test code = 74555-1) Abnormal [facility] Notes Date/Time Note Provider Source 2024-02-17 21:43:52 4079-73-34S64:43:52F ormatting of this note might be different from the original.No answer in lobby. 97418-8Xqulxkhih department BuzvUK5200-40-74T35:44:07[facility] NoteTXT1.2.840.457816.1.13.104.2.7 .2.846979|[id number] for patient oevo00438-0ArvlNUVFAXGLSZIJjdmstxe d C-CDA narrative [id number] J Hoot RN[id number] 50EWVZXDUIVGGESAKVDPOCLT8053-83-13 T21:44:071.2.840.523116.1.72.3.15| 1.2.840.934152.1.13.104.2.7.2.7278 [id number] Angy Turner RN [facility] 2024-02-17 21:42:10 1042-57-45W46:42:10F ormatting of this note might be different from the original.Pt's blood pressure cuff and pulse ox found lying on chair. Called for patient in lobby 2 times, no answer. No one in lobby. 96194-2Jjtsoenis department ZzlaRL8210-02-53A31:44:10[facility] department NoteTXT1.2.840.595418.1.13.104.2.7 .2.090213|[id number] for patient wenp40503-0AionMGVUPPVEFPPZselbrtl d C-CDA narrative olim475208885WqaahSierra [address]TX[address] 37DBWGSDJGOKQOIXSGHBJLHL7742-95-72 T21:44:101.2.840.416431.1.72.3.15| 1.2.840.725012.1.13.104.2.7.2.7278 [id number] Sierra Samaniego RN [facility] 2024-02-17 21:41:09 1052-22-83X84:41:09F ormatting of this note might be different from the original.Pt not in lobby or in room. No answer in lobby. 40540-6Qcfnqmejd department IgzxGC0420-83-60B48:41:40[facility] NoteTXT1.2.840.426863.1.13.104.2.7 .2.900543|[id number] for patient wtdx88785-1LoefEBTXCSXUIALBsnilhit d C-CDA narrative textUT[address]TXTX[address]75 49IVGRWIZUKBBQNOTXRCQTUF1744-87-05 T21:41:401.2.840.281329.1.72.3.15| 1.2.840.312056.1.13.104.2.7.2.7278 [id number] [facility] 2024-02-17 21:14:29 4044-50-49D28:14:29F ormatting of this note might be different from the original.Pt not in FT01-01 and no answer in lobby. 70610-6Uqchkdgjf department QaddEX1137-73-94M23:15:32[facility] department NoteTXT1.2.840.867090.1.13.104.2.7 .2.153902|[id number] for patient zenn65259-0NfqvDUBDDSOQXPSRbflounv d C-CDA narrative text[address]TXTX[address] 62ELXSPBZHDPUAEYEUDIVNTJ8638-23-47 T21:15:321.2.840.960775.1.72.3.15| 1.2.840.609299.1.13.104.2.7.2.7278 [id number] [facility] 2024-02-17 20:48:50 9699-59-42Z35:48:50F ormatting of this note might be different from the original.Pt arrives ambulatory to ED c/o SOB, right upper abdominal pain, and left leg and hip pain. Pt states that he has been on prednisone for about 5 yrs which had given him osteoporosis which is causing his leg pain. Reports hx of COPD, o2 is generally @ 91 he says. 47528-7Yjsdphpxb department Triage shhjDI2959-05-77U43:53:54[facility] department Triage noteTXT1.2.840.734165.1.13.104.2.7 .2.157597|[id number] for patient fjed52506-9Huvreqwwa department NoteLNNARRATIVEFormatted C-CDA narrative [id number] [address] StreetHoxeEnnpzeobcBdnftltqjNUWB94059442 64XASNPCFOSWPRQLPXJUGQEB2488-01-13 T20:53:541.2.840.986060.1.72.3.15| 1.2.840.392220.1.13.104.2.7.2.7278 [id number] Leah Lizama RN [facility] 2024-02-08 21:37:56 7357-57-63S25:37:56F ormatting of this note might be different from the original.Pt left AMA 86196-6Faebgbmhg department GgakTM8010-82-76M79:38:11[facility] department NoteTXT1.2.840.942365.1.13.104.2.7 .2.839383|[id number] for patient wryi11523-2CfuxCEJNKXZJXMHYxsvlkow d C-CDA narrative nkda840753291TmlfdKylie Foster RN[address]vd[address]onGalvestonTXTX[address] 71PKFRITBFNRKNJPXDYITMJI2146-22-75 T21:38:111.2.840.810597.1.72.3.15| 1.2.840.418252.1.13.104.2.7.2.7278 [id number] Kylie Foster RN [facility] 2024-02-08 21:32:00 4412-59-35O75:32:00F ormatting of this note might be different [...] ambulatory with steady gait, appears in NAD 04947-1Tcymuttlp department TwztVI2987-17-48J33:40:32[facility] NoteTXT1.2.840.256152.1.13.104.2.7 .2.651029|[id number] for patient drqj24010-1NpsoBDXRTHNPWPHAmyweqhh d C-CDA narrative [address] 81SWTGEABMHGOSPBYXMRBSXN7180-09-59 T21:40:321.2.840.952555.1.72.3.15| 1.2.840.238332.1.13.104.2.7.2.7278 [id number] [facility] 2024-02-08 20:54:38 6217-81-61Z46:54:38F ormatting of this note might be different from the original.Pt states he uses O2 at home, portable O2 is broken [address]62-3Blymeulxr[address] IqikCT1307-41-95J21:55:13[facility] NoteTXT1.2.840.762660.1.13.104.2.7 .2.639241|[id number] for patient uxkk83145-5MxqrTBMIHSHPJPZEaltdoyf d C-CDA narrative [address]TXTX[address] 36YZFAVAWICRDJAXSHQAMFRJ3999-50-74 T20:55:131.2.840.325929.1.72.3.15| 1.2.840.735933.1.13.104.2.7.2.7278 79_[id number] [facility] 2024-02-08 20:51:11 7019-07-92A80:51:11F ormatting of this note might be different from the original.Pt ambulates with cane 28014-6Ziqcpwtiy department HxumJY3274-71-23J67:51:26[facility] department NoteTXT1.2.840.458033.1.13.104.2.7 .2.338017|[id number] for patient yudj33418-7OaqcXUOOKALFBMPLzwlnbtx d C-CDA narrative text[address]TXTX[address] 68FRXHZCVHQNXWFYGZTXUNBP9009-62-83 T20:51:261.2.840.916446.1.72.3.15| 1.2.840.169977.1.13.104.2.7.2.7278 [id number] [facility] 2024-02-08 20:43:13 0555-34-08P29:43:13F ormatting of this note might be different from the original.CC: Pt arrives SOB after leaving [place] earlier in the shift. He reports he [...] 3 BC powders and drank 3 beers." 77464-7Kehzpwpjf department Triage hjtnWW3628-94-91D14:48:36[facility] department Triage noteTXT1.2.840.696931.1.13.104.2.7 .2.283181|[id number] for patient oddf91533-5Hpddqirvb department NoteLNNARRATIVEFormatted C-CDA narrative sgix963373985Zztofu R Shehadeh RNUT[address]TXTX[address] 45ARQLMZDMOXDZXTUUCPCTOZ1006-27-73 T20:48:361.2.840.406216.1.72.3.15| 1.2.840.749410.1.13.104.2.7.2.7278 [id number] Leah King RN [facility] 2024-02-08 17:04:05 4390-21-99V93:04:05F ormatting of this note might be different [...] of the department with a steady gait. 25353-3Vlymdmzal department PdoeKT7800-12-04L45:05:22[facility] NoteTXT1.2.840.492261.1.13.104.2.7 .2.230226|[id number] for patient krfj90722-5HqmeMXLWFOOSMRKDwopfktp d C-CDA narrative huib854333546Hhjk M Hayes RN[address]vdGalvestonGalvestonTXTX[address] 95BSOTAVQYRSISWJLOXTFHPE7583-88-14 T17:05:221.2.840.877154.1.72.3.15| 1.2.840.041526.1.13.104.2.7.2.7278 [id number] Allison Zhang RN [facility] 2024-02-08 14:23:02 8280-70-46C52:23:02F ormatting of this note might be different from the original.Pt ambulates with a cane 12973-1Vepuxucem department PckxYY5900-00-64V97:23:12[facility] department NoteTXT1.2.840.617880.1.13.104.2.7 .2.981747|[id number] for patient qhiw90695-0IjrpUIKJIVHSOUENdxaesqi d C-CDA narrative yvlw575912151LbcxbKylie Foster RN[address]TXTX[address] 12HGUWUGZCNPCBNGNJQADQNS1140-09-85 T14:23:121.2.840.955713.1.72.3.15| 1.2.840.630862.1.13.104.2.7.2.7278 [id number] Kylie Foster RN [facility] 2024-02-08 14:13:15 7705-48-27W37:13:15F ormatting of this note might be different [...] only thing that helps." Face is flushed. 24801-9Xegmphgat department Triage vpevSK8122-13-83S21:17:26[facility] department Triage noteTXT1.2.840.838538.1.13.104.2.7 .2.913952|[id number] for patient ibxj70877-8Ldatcnjpz department NoteLNNARRATIVEFormatted C-CDA narrative zbxu840982721Alnbqzg Fief RNUT[address]TXTX[address] 05BYMIIAINBAXZXAIOLEALSS7379-87-14 T14:17:261.2.840.927727.1.72.3.15| 1.2.840.695521.1.13.104.2.7.2.7278 [id number] Hali Aviles RN [facility] 2024-01-14 06:16:25 7034-13-35Z91:16:25F ormatting of this note might be different [...] w/d, pt leaving in no apparent distress, 45768-5Sjjvmcdhb department YggvPO8355-87-89R49:17:20[facility] department NoteTXT1.2.840.852655.1.13.104.2.7 .2.916676|[id number] for patient sacm54615-6EosgXAEZHOZDCUWVbeswrlk d C-CDA narrative textUT[address] WxbwOhicttyodJcuaklbjxFXEL45395972 22FZKVTJARNNJJCZLDZKGGPS3163-67-81 T06:17:201.2.840.286591.1.72.3.15| 1.2.840.018199.1.13.104.2.7.2.7278 79_[id number] [facility] 2024-01-14 04:49:43 7202-95-10D84:49:43F ormatting of this note might be different [...] ext without difficulty, amb with steady gait 96685-0Jocvqczdv department Triage wtboSY0379-57-69X70:55:49[facility] department Triage noteTXT1.2.840.389761.1.13.104.2.7 .2.470941|[id number] for patient jtnz04978-0Nhwuwbwor department NoteLNNARRATIVEFormatted C-CDA narrative rzve400045628Qiyrpq R Shehadeh RN[address] LurfWmszmcfjhVxkxxuvoxQMVF97464636 77KVEHNKMLJWIHIJGYTVZLYV6192-14-39 T04:55:491.2.840.536291.1.72.3.15| 1.2.840.777065.1.13.104.2.7.2.7278 [id number] Leah King RN [facility] 2024-01-14 04:43:00 0745-48-40X71:43:00A ssociated Order(s): EKG-12 Lead ROUTINE ONCEPre-Procedure Diagnose(s): Chest pain, unspecified typePost-Procedure Diagnose(s): Chest pain, unspecified type [facility] Emergency Department NotePatient Name: Randy Edwards of : 1970 53 year old maleTreatment Room: TX1/TO4Ieutekg Record Number: [id number] Care Physician: Adrianna King Escorted by: Family [5]Mode of Arrival: Personal means [1]EMS 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 METABOLIC PANEL (52888) - AbnormalResult Value Ref RangeNA 138 135 [...] 49 (*) 13 - 40 U/LeGFR 93.3 mL/min/1.93g8KWF WITH DIFF - AbnormalWBC 11.59 (*) 4.20 [...] 220 U/LCOVID-19 (ID NOW RAPID TESTING) - NkhdriKYYF-VxR-6 Rapid ID NOW Not Detected Not DetectedETHANOLALCOHOL 62 mg/dLEKG:If EKG completed, see Procedure Note.Orders and Treatments:Orders Placed This EncounterProcedures XR CHEST 1 VW TROPONIN I COMP. METABOLIC PANEL (47038) LIPASE, SERUM CBC WITH DIFF N-Terminal Pro-Bnp Ethanol COVID-19 (ID NOW TESTING) Lab Only COVID Interpretation O2 Per ProtocolOrders Placed This EncounterMedications morpHINE (4 mg/mL) injection 4 mg ondansetron (ZOFRAN (PF)) injection 4 mg ipratropium-albuteroL (DUONEB) 0.5 mg-3 mg(2.5 mg base)/3 mL nebulizer solution 3 mLFirst Provider Eval:ED EventsDate/Time Event User Tywjssnu33/07/24 0510 Medical Screening Begins JAC NAVARRO MD --01/14/24 0510 First Provider Evaluation JAC NAVARRO MD --ED COURSEDiagnosis/Impression as of 01/14/24 0605Chest pain, unspecified typeBronchitisProcedures:EKG-12 Lead ROUTINE ONCEDate/Time: 01/14/2024 5:24 AMPerformed by: Jac Navarro MDAuthorized by: Jac Navarro MDECG interpreted by ED Physician in the absence of a lead etl developer: yesPrevious ECG:Previous ECG: Compared to currentSimilarity: No [...] on fileFollow-up:Electronically signed by:Jac Navarro MD01/14/24 0600 91377-4Szeqqgqga Emergency department MwryHX5063-06-64N87:00:50[facility] department NoteTXT1.2.840.560987.1.13.104.2.7 .2.620394|[id number] for patient rqxx94111-4Mudfwydit[address] [place] [address] NoteLNNARRATIVEFormatted C-CDA narrative textUT[address] GztsZeoqhroiqRwzlwhcwgPRBY52788963 45VICWEDAJNOKQLEVHBIUNGJ0452-63-39 T06:00:501.2.840.058293.1.72.3.15| 1.2.840.988822.1.13.104.2.7.2.7278 [id number] [facility] 2023-12-22 23:12:16 6095-85-82L77:12:16F ormatting of this note might be different [...] with steady gait, in no apparent distress, 86797-8Fasfoxiya department QbuvQU4213-98-74Z11:13:50[facility] department NoteTXT1.2.840.178690.1.13.104.2.7 .2.861050|[id number] for patient ydnx05068-8AgcdKHLZRHDGATZGawhmazj d C-CDA narrative pwix200266651Iwesb E Gómez MACHUCA[address]vestonTXTX[address] 33JCZVRGYLVKGFVYPHMVFIAS1883-17-19 T23:13:501.2.840.211155.1.72.3.15| 1.2.840.499507.1.13.104.2.7.2.7278 [id number] Mary Machado Gómez MACHUCA [facility] 2023-12-22 21:41:55 3727-99-10M17:41:55F ormatting of this note might be different from the original.Pt arrives ambulatory to ED reporting bleeding with stools and 10/10 abdominal pain. States he was here last night but had to leave before receiving results d/t having to work. Says the pain became worse so he came back in. 07009-0Ppxfhvkll department Triage ghylQJ8249-14-49Y15:48:52[facility] department Triage noteTXT1.2.840.215733.1.13.104.2.7 .2.380157|[id number] for patient dxkf50128-2Gvcmxmlwu department NoteLNNARRATIVEFormatted C-CDA narrative wnsg413659912Crntnz L Williams RN[address]TXTX[address] 03PJVDBSMSJQCYAZHZUYHUZJ1165-99-53 T21:48:521.2.840.882609.1.72.3.15| 1.2.840.538418.1.13.104.2.7.2.7278 [id number] Leah Lizama RN [facility] 2023-12-21 21:31:00 2007-99-26M70:31:00F ormatting of this note might be different [...] with steady gait, appears in no distress. 15869-3Grhxsqkut department EzhtAC9610-98-97M77:38:39[facility] department NoteTXT1.2.840.382828.1.13.104.2.7 .2.432479|[id number] for patient sxtp68249-5ClhvOGJYUPDWVGVRblznvxo d C-CDA narrative gssn999336298EncssMary Magaña RN[address]vdGalvestonGalvestonTXTX[address] 03WBQOBUHJIBLRLGJUUWSYND6863-28-22 T21:38:391.2.840.037307.1.72.3.15| 1.2.840.142890.1.13.104.2.7.2.7278 [id number] Mary Magaña RN [facility] 2023-12-21 21:30:00 5781-35-86R65:30:00F ormatting of this note might be different from the original.Pt wished to leave AMA. Pt states " yall were wonderful but 3am come real early." 69105-0Bcssdtsao department YxntRL2465-10-15D48:36:58[facility] department NoteTXT1.2.840.700198.1.13.104.2.7 .2.213065|[id number] for patient jfpm37589-3DzwzSVVSOYJDSFDFtlkndxe d C-CDA narrative textUT[address]TXTX[address] 26MAZXNGMYOLARQSQUTGYTSB6808-21-43 T21:36:581.2.840.233292.1.72.3.15| 1.2.840.995917.1.13.104.2.7.2.7278 [id number] [facility] 2023-12-21 21:26:22 1743-13-59H76:26:22F ormatting of this note might be different from the original.Pt asking to go outside and smoke, wants to go home and eat. Pt educated on risks of leaving AMA. Provider informed pt is in pain. 09348-6Kvoezuxyr department XqikAM1359-50-42P74:33:35[facility] department NoteTXT1.2.840.241312.1.13.104.2.7 .2.524826|[id number] for patient wwxs73814-6FltrOWBOLRNYCUPYmeikorq d C-CDA narrative ftym456989618Qhimsh R Shehadeh RNUT[address]TXTX[address] 20BAOEXLHGGCWYUKBNUOBECS7446-57-08 T21:33:351.2.840.379574.1.72.3.15| 1.2.840.393407.1.13.104.2.7.2.7278 [id number] Leah King RN [facility] 2023-12-21 19:31:50 6056-00-72E35:31:50F ormatting of this note might be different from the original.Pt arrived ambulatory with complaints of bright red rectal bleeding and generalized abdominal pain this afternoon. Pt states his stool was normal consistency but continuous bright red blood. 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 States he vomits all the time but not something new today. 87849-3Mwhgxqequ department Triage jbnlUT0563-54-67X25:33:28[facility] department Triage noteTXT1.2.840.216126.1.13.104.2.7 .2.915275|[id number] for patient cuzz85150-4Mcjilridz department NoteLNNARRATIVEFormatted C-CDA narrative [id number] D Roman RN[address]TX[address] 70FFHFUMBWWWGFGLEFSSMGGO6500-79-04 T19:33:281.2.840.940122.1.72.3.15| 1.2.840.315608.1.13.104.2.7.2.7278 [id number] Gabi Esqueda RN [facility] 2023-11-10 20:13:39 9129-72-43J48:13:39F ormatting of this note might be different from the original.Pt requesting to leave AMA. ERP notified. Pt counseled to remain, risks of leaving AMA including discussed with pt. Pt continued to decline further ER evaluation at this time. AMA papers signed, witnessed, and placed on patient's chart. Pt left ambulatory. VS stable, no ataxia noted, GCS 15, A&Ox4. 57865-3Emzsqiygv department VauoDD4456-38-32Z19:13:52[facility] department NoteTXT1.2.840.685093.1.13.104.2.7 .2.235363|[id number] for patient qsul52052-7FmroCREBZBBUWGTFssasbda d C-CDA narrative uqoy865178002Fvowgm R Goodrich RN[address] 53JFCXQOKBJSMOOQQAMBZKRJ7175-84-17 T20:13:521.2.840.533628.1.72.3.15| 1.2.840.866534.1.13.104.2.7.2.7278 [id number] Briseida Medrano RN [facility] 2023-11-10 19:30:29 6508-93-67A38:30:29F ormatting of this note might be different from the original.Patient arrived to ED c/o SOB and COPD exacerbation. Symptoms started this morning. Patient wears 3L NC at home. Patient is a smoker. Patient states having the chills, diarrhea, and vomiting. States having sharp pains in chest from coughing. 39170-0Unabmrzjq department Triage cwteJH8429-07-40T31:35:27[facility] department Triage noteTXT1.2.840.268699.1.13.104.2.7 .2.616434|[id number] for patient abib74198-9Ujsrsdbxu department NoteLNNARRATIVEFormatted C-CDA narrative [id number]-Xwgcx McInnis RNUT[address] RocgBnkajieabDlgfdachaMQXA02440207 25CIICDLBFSMWDGMXUKPZUES6494-03-29 T19:35:271.2.840.592033.1.72.3.15| 1.2.840.261898.1.13.104.2.7.2.7278 [id number] Sreedhar Gomez RN [facility]
[2024-05-02] MEDS ORDERED: IPRATROPIUM BROM 0.5MG/2.5ML ONE (01:34)
[2024-05-02] MEDS ORDERED: ALBUTEROL 2.5 MG/3 ML NEB SOL ONE (01:34)
[2024-05-02] MEDS ORDERED: METHYLPREDNISOLONE 125 MG INJ ONE (01:35)
[2024-05-02] MEDS ORDERED: AZITHROMYCIN 250 MG TAB ONE (01:35)
--- NOTE | 2024-05-02 08:57 | ER ---
Nurse's Notes [facility] Name: Randy Briones Age: 53 yrs Sex: Male : 1970 Arrival Date: 05/01/2024 Time: 23:36 Bed 3 Private MD: Diagnosis: COPD/ Chronic obstructive pulmonary disease with (acute) exacerbation Presentation: 05/02 01:42 Chief complaint: Patient states: SOB. Coronavirus screen: Client denies travel out of 3 the [place] in the last 14 days. At this time, the client does not indicate any symptoms associated with coronavirus-19. Ebola Screen: No symptoms or risks identified at this time. Risk Assessment: Do you want to hurt yourself or someone else? Patient reports no desire to harm self or others. Onset of symptoms is unknown. 01:42 Method Of Arrival: EMS: [facility] 3 01:42 Acuity: CANDACE 3 lg3 01:45 Initial Sepsis Screen: Does the patient meet any 2 criteria? No. Patient's initial 3 sepsis screen is negative. Does the patient have a suspected source of infection? No. Patient's initial sepsis screen is negative. Triage Assessment: 01:42 General: Appears in no apparent distress. comfortable, Behavior is fussy, Smells of lg3 alcohol. Pain: Denies pain. EENT: No deficits noted. No signs and/or symptoms were reported regarding the EENT system. Neuro: No deficits noted. Macario Agitation-Sedation Scale (RASS): 0 - Alert and Calm Level of Consciousness is awake, alert, obeys commands, Oriented to person, place, time, situation. Cardiovascular: No deficits noted. Denies chest pain, Capillary refill < 3 seconds Clubbing of nail beds is absent JVD is absent Patient's skin is warm and dry. Respiratory: No deficits noted. Reports shortness of breath at rest on exertion Airway is patent Respiratory effort is even, unlabored, Respiratory pattern is regular, symmetrical. GI: No deficits noted. No signs and/or symptoms were reported involving the gastrointestinal system. Abdomen is round non-distended, obese. : No deficits noted. No signs and/or symptoms were reported regarding the genitourinary system. Derm: No deficits noted. No signs and/or symptoms reported regarding the dermatologic system. Skin is intact, is healthy with good turgor, Skin is dry, Skin is normal, Skin temperature is warm. Musculoskeletal: No deficits noted. No signs and/or symptoms reported regarding the musculoskeletal system. Circulation, motion, and sensation intact. Range of motion: intact in all extremities. Historical: - Allergies: 01:42 Lisinopril; lg3 - PMHx: 01:42 Alcoholism; COPD; Hepatitis B (Hypertension); home 02 3LNC PRN; Hypertension; lg3 Osteoporosis; - PSHx: 01:42 Amputation of left index finger; lg3 - Immunization history:: Adult Immunizations up to date. - Infectious Disease History:: Denies. - Social history:: Smoking status: Patient reports the use of cigarette tobacco products, smokes more than three packs cigarettes per day. Patient uses alcohol, patient/guardian reports chronic longstanding heavy alcohol consumption. Screenin:44 [facility] ED Fall Risk Assessment (Adult) History of falling in the last 3 months, lg3 including since admission No falls in past 3 months (0 pts) Confusion or Disorientation No (0 pts) Intoxicated or Sedated Yes (3 pts) Impaired Gait No (0 pts) Mobility Assist Device Used No (0 pt) Altered Elimination No (0 pt) Score/Fall Risk Level 3 or more points = High Risk Oriented to surroundings, Maintained a safe environment, Educated pt \T\ family on fall prevention, incl call for assistance when getting out of bed, Assessed \T\ reinforced patient's understanding of fall precautions, Provided non-skid footwear. Abuse screen: Denies threats or abuse. Denies injuries from another. Nutritional screening: No deficits noted. Tuberculosis screening: No symptoms or risk factors identified. Assessment: 01:44 General: see triage assessment. lg3 02:14 Reassessment: Patient appears in no apparent distress at this time. No changes from lg3 previously documented assessment. Patient and/or family updated on plan of care and expected duration. Pain level reassessed. Patient is alert, oriented x 3, equal unlabored respirations, skin warm/dry/pink. Vital Signs: 01:45 BP 133 / 74; Pulse 94; Resp 17 S; Temp 97.6(O); Pulse Ox 98% on R/A; lg3 02:14 BP 137 / 71; Pulse 89; Resp 16 S; Temp 97.6(O); Pulse Ox 99% on R/A; lg3 ED Course: 05/01 23:54 Patient arrived in ED. vc1 05/02 00:19 Roberto Song MD is Attending Physician. ec2 01:42 Triage completed. lg3 01:42 Arm band placed on right wrist. lg3 01:44 Patient has correct armband on for positive identification. Placed in gown. Bed in low lg3 position. Call light in reach. Side rails up X 1. Client placed on continuous cardiac and pulse oximetry monitoring. NIBP monitoring applied. patient monitor on. Door closed. Noise minimized. Warm blanket given. Pillow given. 02:14 No provider procedures requiring assistance completed. Patient did not have IV access lg3 during this emergency room visit. Administered Medications: 01:45 Drug: DuoNeb Nebulize (3:1) (2.5 mg - 0.5 mg) 3 ml Nebulizer once Route: Nebulizer; jw7 02:13 Follow up: Response: No adverse reaction lg3 01:45 Drug: MethylPREDNISolone Sodium Succinate IM 125 mg IM once Route: IM; Site: right jw deltoid; 02:13 Follow up: Response: No adverse reaction lg3 01:45 Drug: AZITHromycin PO 500 mg PO once Route: PO; jw7 02:13 Follow up: Response: No adverse reaction lg3 02:13 Not Given (Patient Refused): [id number] mg PO once lg3 Medication: 02:15 VIS not applicable for this client. lg3 Outcome: 02:00 Discharge ordered by . ec2 02:14 Discharged to home ambulatory, lg3 02:14 Condition: stable 02:14 Discharge instructions given to patient, Instructed on discharge instructions, follow up and referral plans. Demonstrated understanding of instructions, follow-up care, 02:15 Patient left the ED. lg3 Signatures: Katherine Arauz RN RN lg3 Piper Humphrey, RN RN vc1 Kaila Mckeon RN RN jw7 Roberto Song MD MD ec2 Corrections: (The following items were deleted from the chart) 01:45 01:42 General: Appears in no apparent distress. comfortable, Behavior is fussy, lg3 lg3
--- NOTE | 2024-05-02 08:57 | EDPHYS ---
Physician Documentation [facility] Name: Randy Briones Age: 53 yrs Sex: Male : 1970 Arrival Date: 05/01/2024 Time: 23:36 Bed 3 Private MD: ED Physician Rboerto Song HPI: 05/02 01:20 This 53 yrs old Male presents to ER via Unassigned with complaints of cough. ec2 01:20 Patient arrives today d/t concern for cough. Hx of copd, smokes one ppd. Patient does ec2 not complain of chest pain. States that he does not regularly take his medications.. 01:21 External records show patient was seen 2 years ago, had lab work that was generally ec2 unremarkable, chest x-ray that was obtained showed no acute intrathoracic process, negative viral swab. . Historical: - Allergies: 01:42 Lisinopril; lg3 - PMHx: 01:42 Alcoholism; COPD; Hepatitis B (Hypertension); home 02 3LNC PRN; Hypertension; lg3 Osteoporosis; - PSHx: 01:42 Amputation of left index finger; lg3 - Immunization history:: Adult Immunizations up to date. - Infectious Disease History:: Denies. - Social history:: Smoking status: Patient reports the use of cigarette tobacco products, smokes more than three packs cigarettes per day. Patient uses alcohol, patient/guardian reports chronic longstanding heavy alcohol consumption. ROS: 01:22 Constitutional: as per hpi ec2 Exam: 01:22 Constitutional: GEN: NAD Head: atraumatic Eyes: EOMI Ears: External ears are ec2 normal. CV: regular rate LUNGS: no respiratory distress, no significant work of breathing, occasional scattered wheeze, no tachypnea, no hypoxia ABD: non-distended SKIN: no evidence of rashes MSK: no evidence of trauma NEURO: moves all extremities equally Vital Signs: 01:45 BP 133 / 74; Pulse 94; Resp 17 S; Temp 97.6(O); Pulse Ox 98% on R/A; lg3 02:14 BP 137 / 71; Pulse 89; Resp 16 S; Temp 97.6(O); Pulse Ox 99% on R/A; lg3 MDM: 01:09 Patient medically screened. ec2 01:22 Data reviewed: vital signs. ED course: Patient arrives today for subjective shortness ec2 of breath. Examination remarkable for well-appearing nontoxic individual who has a reassuring pulmonary examination. Will obtain a chest x-ray, treat symptoms. Suspect COPD exacerbation, possible viral infection, doubt pneumonia.. 01:59 ED course: Patient given DuoNeb, no longer wanted to be seen. Will discharge home. ec2 Suspect COPD exacerbation. 05/02 01:19 Order name: CXR XRAY ec2 Administered Medications: 01:45 Drug: DuoNeb Nebulize (3:1) (2.5 mg - 0.5 mg) 3 ml Nebulizer once Route: Nebulizer; jw7 02:13 Follow up: Response: No adverse reaction lg3 01:45 Drug: MethylPREDNISolone Sodium Succinate IM 125 mg IM once Route: IM; Site: right jw7 deltoid; 02:13 Follow up: Response: No adverse reaction lg3 01:45 Drug: AZITHromycin PO 500 mg PO once Route: PO; jw7 02:13 Follow up: Response: No adverse reaction lg3 02:13 Not Given (Patient Refused): [id number] mg PO once lg3 Disposition Summary: 05/02/24 02:00 Discharge Ordered Notes: Location: Home ec2 Condition: Stable ec2 Diagnosis - COPD/ Chronic obstructive pulmonary disease with (acute) exacerbation ec2 Followup: ec2 - With: Private Physician - When: - Reason: Re-evaluation by your physician Discharge Instructions: - Discharge Summary Sheet ec2 - Chronic Obstructive Pulmonary Disease ec2 Forms: - Medication Reconciliation Form ec2 - Antibiotic Education ec2 - Prescription Opioid Use ec2 - Patient Portal Instructions ec2 - Leadership Thank You Letter ec2 Signatures: Dispatcher [employer] Katherine Hutchinson RN RN lg3 Kaila Mckeon RN RN jw7 Roberto Song MD MD ec2
[2024-05-02 14:49] VITALS: BP 137/71; TEMP 97.6; O2SAT 99
== END 2024-05-02 02:15 | disposition home or self-care (01) ==
LOC: ER 23:36
DX: J44.1 Chronic obstructive pulmonary disease with (acute) exacerbation (principal); Z99.81 Dependence on supplemental oxygen
CPT/HCPCS: J2919; J7613; J7644

== ENCOUNTER 2024-05-02 13:57 | Emergency (ER) | payer OTHER ==
--- OUTSIDE RECORDS SUMMARY | 2024-05-02 14:02 | XMS REPORT | Continuity of Care Document ---
Author Name Unknown Address [address] [facility] [address] [place] [address] [facility] Address [address] [facility] [place] [address] Care Team Providers Care Publishing Editor Name Role Phone GIRISH LOPEZIsaiasROMEO Primary Care Physician Unavailab DARIEN Posey Attending Clinician Unavailable MINNA ORTA Attending Clinician Unavailab WENDY High Attending Clinician Unava ilSHARATH Randolph Attending Clinician Unavailable PEG CAMP Attending Clinician Unavailable Peg Camp NP Attending Clinician [phone] URSULA QUINTANILLA Attending Clinician Unavailable DEMETRIA DAVENPORT Attending Clinician UnaDemetria Carver MD Attending Clinician + Christina Victoria Attending Clinician [phone] JAC NAVARRO Attending Clinician Unavailable Jac Navarro MD Attending Clinician [phone] TYLER ROWE Attending Clinician Unavailab MELINDA Boothe Attending Clinician Unavailable Melinda Maciel DO Attending Clinician [phone] CHRISTY HOLLIDAY Attending Clinician Unavailable Christy Holliday MD Attending Clinician [phone] MARIA ELENA CHAN Attending George akins Unavailable DENISE SUNG Attending Clinician Unavailable KARLEY ADAMS Attending Clinician Unavailable JAC NAVARRO Admitting Clinician Unavailable MELINDA MACIEL Admitting Clinician Unavailable CHRISTY HOLLIDAY Admitting Clinician Unavailable Payers Payer Name Policy Type Policy Number Effective Date Expirati on Date Source [facility] VINOD LEE COPAY FOCUS 9 [id number] 2024 00:00:00 [facility] [id number] 2023 00:00:00 2024 00:00:00 [employer] [id number] 2023 00:00:00 [employer] 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 [employer]ER 94 ON 9 [id number] 2023 00:00:00 Problems Condition Name Condition Details Condition Category Status Onset Date Resolution Date Last Treatment Date Treating Clinician Comments Source Acute exacerbati on of chronic obstructiv e pulmonary disease (COPD) Acute exacerbati on of chronic obstructiv e pulmonary disease (COPD) Disease Active 03-24 00:00: 00 [facility] Obesity (BMI 30-39.9) Obesity (BMI 30-39.9) Disease Active 03-24 00:00: 00 [facility] Allergies, Adverse Reactions, Alerts Allergy Name Allergy Type Status Severity Reaction(s) Onset Date Inactive Date Treating Clinician Comments Source Lisinopr il Propensi ty to adverse reaction s Active Anaphylaxis 03-24 00:00: 00 [facility] LISINOPR [place] DRUG INGREDI Active Anaphylaxis 03-24 00:00: 00 [facility] Social History Social Habit Start Date Stop Date Quantity Comments Source History of tobacco use Smokes tobacco daily [facility] function 2024-02-08 00:00:00 2024-02-08 00:00:00 [facility] Alcohol intake 2024-02-08 00:00:00 2024-02-08 00:00:00 4.29 /d [facility] Exposure to SARS-CoV-2 (event) 2022-10-04 00:00:00 2022-10-14 10:25:00 Not sure [facility] Tobacco use and exposure 2018-03-24 00:00:00 2018-03-24 00:00:00 User of smokeless tobacco [facility] Tobacco Comment 2018-03-24 00:00:00 2018-03-24 00:00:00 trying to quit [facility] Sex Ass[birth year] At 1970 00:00:00 1970 00:00:00 [facility] Smoking Status Start Date Stop Date Source Smokes tobacco daily 2018-03-24 00:00:00 [facility] Medications Ordered Medication Name Filled Medication Name Start Date Stop Date Current Medication? Ordering Clinician Indication Dosage Frequency Signature (SIG) Comments Components Source ketorolac (TORADOL) injection 30 mg 02-17 03:15: 00 02-17 15:14 :00 Yes 30mg 30 mg, Slow IV Push, ONCE, 1 dose, On Thu02/17/24 at 2215, Routine [facility] methylpredn isolone sod succ (SOLU-MEDRO L) injection 125 mg 02-17 03:00: 00 02-17 14:59 :00 Yes 125mg 125 mg, Intravenou s, ONCE, 1 dose, On Thu02/17/24 at 2200, 2 mL [facility] ipratropium -albuteroL (DUONEB) 0.5 mg-3 mg(2.5 mg base)/3 mL nebulizer solution 6 mL 02-17 03:00: 00 02-17 14:59 :00 Yes 6mL 6 mL, Inhalation , ONCE NOW, 1 dose, On Thu02/17/24 at 2200, Routine [facility] NaCl 0.9% (NS) bolus infusion 1,000 mL 02-17 03:00: 00 02-17 14:59 :00 Yes 1000mL at 999 mL/hr, 1,000 mL, IV Infusion, ONCE, 1 dose, On Thu02/17/24 at 2200, LAURYN [facility] triamterene -hydrochlor othiazide 37.5-25 mg per capsule 02-16 20:52: 37 02-16 00:00 :00 No 1{capsu le} Take 1 capsule by mouth every morning. [facility] albuterol 5 mg/mL nebulizer solution 02-16 20:51: 42 02-16 00:00 :00 No 2.5mg Inhale 2.5 mg every 6 (six) hours as needed for Wheezing or Shortness of Breath. [facility] ketorolac (TORADOL) injection 15 mg 02-08 03:00: 00 02-08 02:21 :00 No 15mg 15 mg, Slow IV Push, ONCE, 1 dose, On Thu02/08/24 at 2200, Routine [facility] iopamidol (ISOVUE 370-500 mL) injection 100 mL 02-07 22:30: 00 02-07 22:30 :00 Yes [id number] 100mL 100 mL, Intravenou s, ONCE, 1 dose, On Thu02/08/24 at 1730, Routine [facility] ipratropium -albuteroL (DUONEB) 0.5 mg-3 mg(2.5 mg base)/3 mL nebulizer solution 3 mL 02-07 21:15: 00 02-07 20:45 :00 No 3mL 3 mL, Inhalation , ONCE, 1 dose, On Thu02/08/24 at 1615, Routine [facility] morpHINE (2 mg/mL) injection 4 mg 02-07 21:15: 00 02-07 20:27 :00 No 4mg 4 mg, Slow IV Push, ONCE, 1 dose, On Thu02/08/24 at 1615, STAT [facility] ondansetron (ZOFRAN (PF)) injection 4 mg 02-07 21:15: 00 02-07 20:22 :00 No 4mg 4 mg, Slow IV Push, ONCE, 1 dose, On Thu02/08/24 at 1615, [facility] magnesium sulfate in water 2 gram/50 mL (4 %) infusion 2 g 02-07 21:00: 00 02-07 21:30 :00 No 2g 2 g, IV Piggyback, Administer over 60 Minutes, ONCE, 1 dose, On Thu02/08/24 at 1600, Routine [facility] ipratropium -albuteroL (DUONEB) 0.5 mg-3 mg(2.5 mg base)/3 mL nebulizer solution 3 mL 02-07 20:30: 00 02-07 19:31 :00 No 3mL 3 mL, Inhalation , ONCE, 1 dose, On Thu02/08/24 at 1530, [facility] HYDROcodone -acetaminop hen (NORCO) 10-325 mg tablet 1 tablet 01-13 13:15: 00 01-13 12:15 :00 No 1{tbl} 1 tablet, Oral, ONCE, 1 dose, On Thu01/14/24 at 0715, [facility] ipratropium -albuteroL (DUONEB) 0.5 mg-3 mg(2.5 mg base)/3 mL nebulizer solution 3 mL 01-13 13:00: 00 01-13 11:53 :00 No 3mL 3 mL, Inhalation , ONCE NOW, 1 dose, On Thu01/14/24 at 0700, [facility] ondansetron (ZOFRAN (PF)) injection 4 mg 01-13 11:30: 00 01-13 11:37 :00 No 4mg 4 mg, Slow IV Push, ONCE, 1 dose, On Thu01/14/24 at 0530, [facility] morpHINE (4 mg/mL) injection 4 mg 01-13 11:30: 00 01-13 11:37 :00 No 4mg 4 mg, Slow IV Push, ONCE, 1 dose, On Thu01/14/24 at 0530, STAT [facility] azithromyci n (ZITHROMAX Z-PORTER) 250 mg tablet 01-13 00:00: 00 02-16 00:00 :00 No [id number] Take 500 mg on day 1 then 250 mg on days 2-5 [facility] predniSONE 20 mg tablet 01-13 00:00: 00 02-16 00:00 :00 No [id number] Take 1 po tid x 2 days, then take 1 po bid x 3 days, then take 1 po daily x 3 days. [facility] acetaminoph en-codeine 300-30 mg tablet 01-13 00:00: 00 01-21 04:59 :00 No [id number] 1{tbl} Take 1 tablet by mouth every 6 (six) hours as needed for Pain (scale 7-10) (severe cough) for up to 7 days. Indication s: acute pain, severe cough [facility] clonazePAM 1 mg tablet 12-26 00:00: 00 02-16 00:00 :00 No 1mg Take 1 tablet by mouth at bedtime as needed for Other (anxiety). [facility] KCL (KLOR-CON M20) tablet 40 mEq 12-23 05:00: 00 12-23 05:07 :00 No 40meq 40 mEq, Oral, ONCE, 1 dose, On Thu12/22/23 at 2300, LAURYN [facility] NaCl 0.9% (NS) bolus infusion 1,000 mL 12-23 05:00: 00 12-23 05:09 :00 No 1000mL at 999 mL/hr, 1,000 mL, IV Infusion, ONCE, 1 dose, On Thu12/22/23 at 2300, LAURYN [facility] ondansetron (ZOFRAN (PF)) injection 4 mg 12-23 04:30: 00 12-23 04:24 :00 No 4mg 4 mg, Slow IV Push, ONCE, 1 dose, On Thu12/22/23 at 2230, [facility] maalox:diph enhydrAMINE :lidocaine 2 % viscous 1:1:1 (FIRST-MOUT HWASH BLM) oral suspension 15 mL 12-23 04:15: 00 12-23 04:17 :00 No 15mL 15 mL, Oral, ONCE, 1 dose, On Thu12/22/23 at 2215, Routine [facility] famotidine (PEPCID (PF)) injection 20 mg 12-23 04:15: 00 12-23 04:15 :00 No 20mg 20 mg, Slow IV Push, ONCE, 1 dose, On Thu12/22/23 at 2215, [facility] HYDROcodone -acetaminop hen (NORCO) 10-325 mg tablet 1 tablet 12-22 04:30: 00 12-22 16:29 :00 No 1{tbl} 1 tablet, Oral, ONCE, 1 dose, On Thu12/21/23 at 2230, Routine [facility] pantoprazol e (PROTONIX) 80 mg in NaCl 0.9% (NS) 20 mL syringe 12-22 04:15: 00 12-22 16:14 :00 No 80mg 80 mg, IV Push, ONCE, 1 dose, On Thu12/21/23 at 2215, Administer over 2 Minutes, 20 mL [facility] iopamidol (ISOVUE 370-500 mL) injection 100 mL 12-22 03:30: 00 12-22 03:30 :00 No [id number] 100mL 100 mL, Intravenou s, ONCE, 1 dose, On Thu12/21/23 at 2130, Routine [facility] morpHINE (4 mg/mL) injection 4 mg 12-22 03:30: 00 12-22 02:16 :00 No 4mg 4 mg, Slow IV Push, ONCE, 1 dose, On Thu12/21/23 at 2130, Routine [facility] ondansetron (ZOFRAN (PF)) injection 4 mg 12-22 02:45: 00 12-22 02:02 :00 No 4mg 4 mg, Slow IV Push, ONCE, 1 dose, On Thu12/21/23 at 2045, Routine [facility] hydrocortis one 25 mg suppository 12-22 00:00: 00 Yes [id number] 25mg Insert 1 Suppositor y into rectum 2 (two) times daily as needed for Rectal itching/pa in. [facility] ondansetron 4 mg disintegrat ing tablet 12-22 00:00: 00 02-16 00:00 :00 No [id number] 4mg Take 1 tablet by mouth every 8 (eight) hours as needed for Nausea and Vomiting (N/V). [facility] amoxicillin -clavulanat e 875-125 mg per tablet 12-22 00:00: 00 01-02 05:59 :00 No [id number] 1{tbl} Take 1 tablet by mouth every 12 (twelve) hours for 10 days. [facility] methylpredn isolone sod succ (SOLU-MEDRO L) injection 125 mg 2022-11 08:45: 00 10-27 20:44 :00 No 125mg 125 mg, Slow IV Push, ONCE, 1 dose, On Thu10/27/23 at 0245, STAT [facility] ipratropium -albuteroL (DUONEB) 0.5 mg-3 mg(2.5 mg base)/3 mL nebulizer solution 3 mL 2022-11 08:45: 00 10-27 20:44 :00 No 3mL 3 mL, Inhalation , ONCE NOW, 1 dose, On Thu10/27/23 at 0245, LAURYN [facility] diazePAM (VALIUM) tablet 10 mg 2022-11 07:45: 00 10-27 19:44 :00 No 10mg 10 mg, Oral, ONCE, 1 dose, On Thu10/27/23 at 0145, LAURYN [facility] levoFLOXaci n (LEVAQUIN) tablet 500 mg 2022-11 07:45: 00 10-27 19:44 :00 No 500mg 500 mg, Oral, ONCE, 1 dose, On Thu10/27/23 at 0145, LAURYN
Re ason for Anti-Infec tive: Empiric Non-Surgic al Prophylaxi s
Durat ion of therapy: Once (ED) [facility] iopamidol (ISOVUE 370-500 mL) injection 70 mL 2021-11 18:30: 00 10-14 18:30 :00 No [id number] 70mL 70 mL, Intravenou s, ONCE, 1 dose, On Thu10/14/22 at 1230, Routine [facility] methylpredn isolone sod succ (SOLU-MEDRO L) injection 125 mg 2021-11 18:00: 00 Yes 125mg 125 mg, Intravenou s, Q6H, First dose on Thu10/14/22 at 1200, Until Discontinu ed, Routine [facility] furosemide (LASIX) injection 40 mg 2021-11 17:45: 00 10-14 16:39 :00 No 40mg 40 mg, IV Push, ONCE, 1 dose, On Thu10/14/22 at 1145, LAURYN [facility] ipratropium -albuteroL (DUONEB) 0.5 mg-3 mg(2.5 mg base)/3 mL nebulizer solution 3 mL 2021-11 17:30: 00 10-14 16:41 :00 No 3mL 3 mL, Inhalation , ONCE, 1 dose, On Thu10/14/22 at 1130, Routine [facility] FENTanyl PF (SUBLIMAZE (PF)) injection 50 mcg 2021-11 16:45: 00 10-14 16:39 :00 No 50ug 50 mcg, Slow IV Push, ONCE, 1 dose, On Thu10/14/22 at 1045, Routine [facility] levoFLOXaci n 750 mg tablet 2021-11 2-06 00:00: 00 02-16 00:00 :00 No [id number] 750mg Take 1 tablet by mouth every 24 (twenty-fo ur) hours. [facility] HYDROcodone -acetaminop hen (NORCO) 10-325 mg tablet 1 tablet 03-12 12:15: 00 03-12 11:21 :00 No 1{tbl} 1 tablet, Oral, ONCE, 1 dose, On Thu03/12/22 at 0715, Routine [facility] HYDROcodone -acetaminop hen 10-325 mg tablet 03-12 00:00: 00 03-20 04:59 :00 No [id number] 1{tbl} Take 1 tablet by mouth every 6 (six) hours as needed for Pain (scale 7-10) for up to 7 days. Indication s: acute pain [facility] ipratropium -albuteroL (DUONEB) 0.5 mg-3 mg(2.5 mg base)/3 mL nebulizer solution 3 mL 02-20 13:00: 00 Yes 3mL 3 mL, Inhalation , QID, First dose on Thu02/20/22 at 0800, Until Discontinu ed, Routine [facility] methylPREDN ISolone sod succ (SOLU-MEDRO L (PF)) injection 40 mg 02-20 11:45: 00 02-20 10:43 :00 No 40mg 40 mg, Intravenou s, ONCE, 1 dose, On Thu02/20/22 at 0645, STAT [facility] foLIC acid (FOLATE) tablet 1 mg 02-20 11:45: 00 02-20 10:41 :00 No 1mg 1 mg, Oral, ONCE, 1 dose, On Thu02/20/22 at 0645, LAURYN [facility] thiamine (VITAMIN B1) injection 100 mg 02-20 11:45: 00 02-20 10:43 :00 No 100mg 100 mg, Intravenou s, ONCE, 1 dose, On Thu02/20/22 at 0645, LAURYN [facility] LORazepam (ATIVAN) injection 2 mg 02-20 11:45: 00 02-20 10:42 :00 No 2mg 2 mg, Slow IV Push, ONCE, 1 dose, On Kym 02/20/22 at 0645, STAT [facility] ipratropium -albuteroL (DUONEB) 0.5 mg-3 mg(2.5 mg base)/3 mL nebulizer solution 3 mL 02-20 10:30: 00 02-20 09:34 :00 No 3mL 3 mL, Inhalation , ONCE, 1 dose, On Kym 02/20/22 at 0530, Routine [facility] albuterol 90 mcg/actuati on inhaler 02-20 00:00: 00 Yes [id number] 2{puff} Inhale 2 Puffs every 4 (four) hours as needed for Wheezing or Shortness of Breath. [facility] triamterene -hydrochlor othiazid 37.5-25 mg tablet 02-20 00:00: 00 Yes [id number] 1{tbl} Take 1 tablet by mouth daily. [facility] chlordiazeP OXIDE 25 mg capsule 02-20 00:00: 00 Yes [id number] 25mg Take 1 capsule by mouth every 6 (six) hours as needed for Anxiety, Agitation, Heart Rate => 100 or Detox. [facility] predniSONE 10 mg tablet 02-20 00:00: 00 02-16 00:00 :00 No [id number] TAKE ONE TABLET BY MOUTH DAILY [facility] albuterol 2.5 mg /3 mL (0.083 %) nebulizer solution 02-20 00:00: 00 02-16 00:00 :00 No [id number] 2.5mg Inhale 3 mL every 4 (four) hours. May also nebulize one extra every 6 hours. [facility] budesonide- formoteroL 160-4.5 mcg/actuati on inhaler 02-20 00:00: 00 02-16 00:00 :00 No [id number] 2{puff} Inhale 2 Puffs 2 (two) times daily. [facility] albuterol 5 mg/mL nebulizer solution 07-16 14:02: 20 Yes 2.5mg Inhale 2.5 mg every 6 (six) hours as needed for Wheezing or Shortness of Breath. [facility] budesonide- formoterol 160-4.5 mcg/actuati on inhaler 07-16 00:00: 00 Yes 2{puff} Inhale 2 Puffs 2 (two) times daily. [facility] albuterol 2.5 mg /3 mL (0.083 %) nebulizer solution 07-16 00:00: 00 Yes 2.5mg Inhale 3 mL every 4 (four) hours as needed for Wheezing or Shortness of Breath. [facility] triamterene -hydrochlor othiazide 37.5-25 mg per capsule 03-26 16:32: 14 Yes 1{capsu le} Take 1 capsule by mouth every morning. [facility] amLODIPine 10 mg tablet 03-26 16:32: 14 Yes 10mg Take 10 mg by mouth at bedtime. [facility] gabapentin 100 mg capsule 03-26 16:32: 14 Yes 100mg Take 100 mg by mouth 2 (two) times daily as needed (MSK pain). [facility] foLIC acid 1 mg tablet 03-26 16:32: 14 Yes 1mg Take 1 mg by mouth daily. [facility] budesonide- formoterol 160-4.5 mcg/actuati on inhaler 03-26 00:00: 00 02-16 00:00 :00 No 2{puff} Inhale 2 Puffs 2 (two) times daily. [facility] Immunizations Ordered Immunization Name Filled Immunization Name Date Status Comments Source SARS-COV-2 COVID-19 PFIZER VACCINE 2021-02-03 00:00:00 Completed [facility] SARS-COV-2 COVID-19 PFIZER VACCINE 2021-02-03 00:00:00 Completed [facility] SARS-COV-2 COVID-19 PFIZER VACCINE 2021-02-03 00:00:00 Completed [facility] SARS-COV-2 COVID-19 PFIZER VACCINE 2021-01-13 00:00:00 Completed [facility] SARS-COV-2 COVID-19 PFIZER VACCINE 2021-01-13 00:00:00 Completed [facility] SARS-COV-2 COVID-19 PFIZER VACCINE 2021-01-13 00:00:00 Completed [facility] Pneumococcal Polysaccharide, PPSV23 (PNEUMOVAX) 2018-03-26 00:00:00 Completed [facility] Influenza Virus Vaccine Quad IM 3+ YRS 2018-03-26 00:00:00 Completed [facility] Pneumococcal Polysaccharide, PPSV23 (PNEUMOVAX) 2018-03-26 00:00:00 Completed [facility] Influenza Virus Vaccine Quad IM 3+ YRS 2018-03-26 00:00:00 Completed [facility] Pneumococcal Polysaccharide, PPSV23 (PNEUMOVAX) 2018-03-26 00:00:00 Completed [facility] Influenza Virus Vaccine Quad IM 3+ YRS 2018-03-26 00:00:00 Completed [facility] Pneumococcal Polysaccharide, PPSV23 (PNEUMOVAX) Unknown Completed [facility] Influenza Virus Vaccine Quad IM 3+ YRS Unknown Completed [facility] SARS-COV-2 COVID-19 PFIZER VACCINE Unknown Completed [facility] SARS-COV-2 COVID-19 PFIZER VACCINE Unknown Completed [facility] Pneumococcal Polysaccharide, PPSV23 (PNEUMOVAX) Unknown Completed [facility] Influenza Virus Vaccine Quad IM 3+ YRS Unknown Completed [facility] SARS-COV-2 COVID-19 PFIZER VACCINE Unknown Completed [facility] SARS-COV-2 COVID-19 PFIZER VACCINE Unknown Completed [facility] Pneumococcal Polysaccharide, PPSV23 (PNEUMOVAX) Unknown Completed [facility] Influenza Virus Vaccine Quad IM 3+ YRS Unknown Completed [facility] SARS-COV-2 COVID-19 PFIZER VACCINE Unknown Completed [facility] SARS-COV-2 COVID-19 PFIZER VACCINE Unknown Completed [facility] Pneumococcal Polysaccharide, PPSV23 (PNEUMOVAX) Unknown Completed [facility] Influenza Virus Vaccine Quad IM 3+ YRS Unknown Completed [facility] SARS-COV-2 COVID-19 PFIZER VACCINE Unknown Completed [facility] SARS-COV-2 COVID-19 PFIZER VACCINE Unknown Completed [facility] Pneumococcal Polysaccharide, PPSV23 (PNEUMOVAX) Unknown Completed [facility] Influenza Virus Vaccine Quad IM 3+ YRS Unknown Completed [facility] SARS-COV-2 COVID-19 PFIZER VACCINE Unknown Completed [facility] SARS-COV-2 COVID-19 PFIZER VACCINE Unknown Completed [facility] Pneumococcal Polysaccharide, PPSV23 (PNEUMOVAX) Unknown Completed [facility] Influenza Virus Vaccine Quad IM 3+ YRS Unknown Completed [facility] SARS-COV-2 COVID-19 PFIZER VACCINE Unknown Completed [facility] SARS-COV-2 COVID-19 PFIZER VACCINE Unknown Completed [facility] Pneumococcal Polysaccharide, PPSV23 (PNEUMOVAX) Unknown Completed [facility] Influenza Virus Vaccine Quad IM 3+ YRS Unknown Completed [facility] SARS-COV-2 COVID-19 PFIZER VACCINE Unknown Completed [facility] SARS-COV-2 COVID-19 PFIZER VACCINE Unknown Completed [facility] Pneumococcal Polysaccharide, PPSV23 (PNEUMOVAX) Unknown Completed [facility] Influenza Virus Vaccine Quad IM 3+ YRS Unknown Completed [facility] SARS-COV-2 COVID-19 PFIZER VACCINE Unknown Completed [facility] SARS-COV-2 COVID-19 PFIZER VACCINE Unknown Completed [facility] Vital Signs Vital Name Observation Time Observation Value Comments S ource Systolic blood pressure 2024-02-18 01:57:00 134 mm[Hg] [facility] Diastolic blood pressure 2024-02-18 01:57:00 94 mm[Hg] [facility] Body height 2024-02-18 01:57:00 162.6 cm [facility] Body weight 2024-02-18 01:57:00 79.379 kg [facility] BMI 2024-02-18 01:57:00 30.04 kg/m2 [facility] Heart rate 2024-02-18 01:53:00 110 /min [facility] Body temperature 2024-02-18 01:53:00 36.61 Debbie [facility] Respiratory rate 2024-02-18 01:53:00 24 /min [facility] Oxygen saturation in Arterial blood by Pulse oximetry 2024-02-18 01:53:00 93 /min [facility] Systolic blood pressure 2024-02-09 01:54:05 150 mm[Hg] [facility] Diastolic blood pressure 2024-02-09 01:54:05 91 mm[Hg] [facility] Heart rate 2024-02-09 01:54:05 87 /min [facility] Respiratory rate 2024-02-09 01:54:05 17 /min [facility] Oxygen saturation in Arterial blood by Pulse oximetry 2024-02-09 01:54:05 93 /min [facility] Body temperature 2024-02-09 01:45:00 36.67 Debbie [facility] Body height 2024-02-09 01:45:00 162.6 cm [facility] Body weight 2024-02-09 01:45:00 81.194 kg [facility] BMI 2024-02-09 01:45:00 30.73 kg/m2 [facility] Respiratory rate 2024-02-08 21:00:00 18 /min [facility] Oxygen saturation in Arterial blood by Pulse oximetry 2024-02-08 21:00:00 96 /min [facility] Systolic blood pressure 2024-02-08 20:27:00 164 mm[Hg] [facility] Diastolic blood pressure 2024-02-08 20:27:00 90 mm[Hg] [facility] Heart rate 2024-02-08 20:27:00 83 /min [facility] Body temperature 2024-02-08 19:12:00 36.83 Debbie [facility] Body height 2024-02-08 19:12:00 162.6 cm [facility] Body weight 2024-02-08 19:12:00 81.194 kg [facility] BMI 2024-02-08 19:12:00 30.73 kg/m2 [facility] Heart rate 2024-01-14 12:15:00 98 /min [facility] Body temperature 2024-01-14 12:15:00 36.56 Debbie [facility] Respiratory rate 2024-01-14 12:15:00 14 /min [facility] Oxygen saturation in Arterial blood by Pulse oximetry 2024-01-14 12:15:00 95 /min [facility] Systolic blood pressure 2024-01-14 12:00:00 140 mm[Hg] [facility] Diastolic blood pressure 2024-01-14 12:00:00 90 mm[Hg] [facility] Body height 2024-01-14 10:51:00 162.6 cm [facility] Body weight 2024-01-14 10:51:00 81.194 kg [facility] BMI 2024-01-14 10:51:00 30.73 kg/m2 [facility] Systolic blood pressure 2023-12-23 05:02:00 133 mm[Hg] [facility] Diastolic blood pressure 2023-12-23 05:02:00 84 mm[Hg] [facility] Heart rate 2023-12-23 05:02:00 78 /min [facility] Body temperature 2023-12-23 05:02:00 36.17 Debbie [facility] Respiratory rate 2023-12-23 05:02:00 17 /min [facility] Oxygen saturation in Arterial blood by Pulse oximetry 2023-12-23 05:02:00 91 /min [facility] Body height 2023-12-23 03:45:00 162.6 cm [facility] Body weight 2023-12-23 03:45:00 81.194 kg [facility] BMI 2023-12-23 03:45:00 30.73 kg/m2 [facility] Systolic blood pressure 2023-12-22 02:08:00 143 mm[Hg] [facility] Diastolic blood pressure 2023-12-22 02:08:00 92 mm[Hg] [facility] Heart rate 2023-12-22 02:08:00 81 /min [facility] Respiratory rate 2023-12-22 02:08:00 13 /min [facility] Oxygen saturation in Arterial blood by Pulse oximetry 2023-12-22 02:08:00 95 /min [facility] Body temperature 2023-12-22 01:33:00 36.72 Debbie [facility] Body height 2023-12-22 01:33:00 162.6 cm [facility] Body weight 2023-12-22 01:33:00 81.239 kg [facility] BMI 2023-12-22 01:33:00 30.74 kg/m2 [facility] Systolic blood pressure 2023-11-11 02:00:00 127 mm[Hg] [facility] Diastolic blood pressure 2023-11-11 02:00:00 87 mm[Hg] [facility] Heart rate 2023-11-11 02:00:00 79 /min [facility] Respiratory rate 2023-11-11 02:00:00 20 /min [facility] Oxygen saturation in Arterial blood by Pulse oximetry 2023-11-11 02:00:00 98 /min [facility] Body temperature 2023-11-11 01:31:00 36.28 Debbie [facility] Body height 2023-11-11 01:31:00 162.6 cm [facility] Body weight 2023-11-11 01:31:00 79.379 kg [facility] BMI 2023-11-11 01:31:00 30.04 kg/m2 [facility] Systolic blood pressure 2023-10-27 06:54:00 133 mm[Hg] [facility] Diastolic blood pressure 2023-10-27 06:54:00 94 mm[Hg] [facility] Heart rate 2023-10-27 06:54:00 95 /min [facility] Body temperature 2023-10-27 06:54:00 36.44 Debbie [facility] Respiratory rate 2023-10-27 06:54:00 22 /min [facility] Body height 2023-10-27 06:54:00 162.6 cm [facility] Body weight 2023-10-27 06:54:00 78.472 kg [facility] BMI 2023-10-27 06:54:00 29.70 kg/m2 [facility] Oxygen saturation in Arterial blood by Pulse oximetry 2023-10-27 06:54:00 94 /min [facility] Systolic blood pressure 2022-10-14 19:43:00 111 mm[Hg] [facility] Diastolic blood pressure 2022-10-14 19:43:00 74 mm[Hg] [facility] Heart rate 2022-10-14 19:43:00 98 /min [facility] Body temperature 2022-10-14 19:43:00 36.39 Debbie [facility] Respiratory rate 2022-10-14 19:43:00 22 /min [facility] Oxygen saturation in Arterial blood by Pulse oximetry 2022-10-14 19:43:00 94 /min [facility] Body height 2022-10-14 16:13:00 162.6 cm [facility] Body weight 2022-10-14 16:13:00 81.647 kg [facility] BMI 2022-10-14 16:13:00 30.90 kg/m2 [facility] Systolic blood pressure 2022-03-12 10:13:00 119 mm[Hg] [facility] Diastolic blood pressure 2022-03-12 10:13:00 75 mm[Hg] [facility] Heart rate 2022-03-12 10:13:00 105 /min [facility] Body temperature 2022-03-12 10:13:00 37.28 Debbie [facility] Respiratory rate 2022-03-12 10:13:00 19 /min [facility] Body height 2022-03-12 10:13:00 162.6 cm [facility] Body weight 2022-03-12 10:13:00 99.791 kg [facility] BMI 2022-03-12 10:13:00 37.76 kg/m2 [facility] Oxygen saturation in Arterial blood by Pulse oximetry 2022-03-12 10:13:00 96 /min [facility] Systolic blood pressure 2022-02-20 11:57:00 155 mm[Hg] [facility] Diastolic blood pressure 2022-02-20 11:57:00 88 mm[Hg] [facility] Heart rate 2022-02-20 11:57:00 105 /min [facility] Respiratory rate 2022-02-20 11:57:00 18 /min [facility] Oxygen saturation in Arterial blood by Pulse oximetry 2022-02-20 11:57:00 100 /min [facility] Body temperature 2022-02-20 09:25:00 37 Debbie [facility] Body height 2022-02-20 09:25:00 162.6 cm [facility] Body weight 2022-02-20 09:25:00 96.163 kg [facility] BMI 2022-02-20 09:25:00 36.39 kg/m2 [facility] Procedures Procedure Date / Time Performed Performing Clinician Source AC PANEL 20 + LACTIC ACID 2024-02-08 20:47:00 Christina Villarreal [facility] XR CHEST 1 VW 2024-02-08 19:47:00 Christina Villarreal [facility] URINALYSIS 2024-02-08 19:36:00 [facility] MAGNESIUM 2024-02-08 19:25:00 [facility] TROPONIN I 2024-02-08 19:25:00 [facility] COMP. METABOLIC PANEL ([id number]) 2024-02-08 19:25:00 Christina Villarreal [facility] ETHANOL 2024-02-08 19:25:00 [facility] CBC WITH DIFF 2024-02-08 19:25:00 Christina Villarreal [facility] N-TERMINAL PRO-BNP 2024-02-08 19:25:00 Christina Villarreal [facility] EKG-12 LEAD 2024-01-14 12:00:51 Jac Navarro [facility] LIPASE 2024-01-14 11:11:00 Jac Navarro [facility] TROPONIN I 2024-01-14 11:11:00 Jac Navarro [facility] COMP. METABOLIC PANEL ([id number]) 2024-01-14 11:11:00 Jac Navarro [facility] ETHANOL 2024-01-14 11:11:00 Jac Navarro [facility] CBC WITH DIFF 2024-01-14 11:11:00 [facility] N-TERMINAL PRO-BNP 2024-01-14 11:11:00 Jac Navarro [facility] COVID-19 (ID NOW RAPID TESTING) 2024-01-14 11:11:00 Jac Navarro [facility] CONSENT/REFUSAL FOR DIAGNOSIS AND TREATMENT 2024-01-14 10:44:32 Doctor Unassigned, Fabrica [facility] LIPASE 2023-12-23 04:17:00 Tyler Rowe [facility] COMP. METABOLIC PANEL ([id number]) 2023-12-23 04:17:00 Tyler Rowe [facility] CBC WITH DIFF 2023-12-23 04:17:00 [facility] 2023-12-23 04:17:00 Tyler Rowe [facility] CONSENT/REFUSAL FOR DIAGNOSIS AND TREATMENT 2023-12-23 03:40:32 Doctor Unassigned, Fabrica [facility] CT ABDOMEN PELVIS W CONTRAST 2023-12-22 02:31:05 Melinda Maciel [facility] LIPASE 2023-12-22 01:58:00 Melinda Maciel [facility] COMP. METABOLIC PANEL (31701) 2023-12-22 01:58:00 Melinda Maciel [facility] ETHANOL 2023-12-22 01:58:00 Melinda Maciel [facility] CBC WITH DIFF 2023-12-22 01:58:00 Melinda Maciel [facility] PROTHROMBIN TIME / INR 2023-12-22 01:58:00 Wali Maciel [facility] URINALYSIS 2023-12-22 01:58:00 [facility] CONSENT/REFUSAL FOR DIAGNOSIS AND TREATMENT 2023-12-22 01:19:14 Doctor Unassigned, Fabrica [facility] NOTICE OF PRIVACY PRACTICES 2023-11-11 01:24:24 Doctor Unassigned, Fabrica [facility] CONSENT/REFUSAL FOR DIAGNOSIS AND TREATMENT 2023-11-11 01:23:54 Doctor Unassigned, Fabrica [facility] COVID-19 (ID NOW RAPID TESTING) 2023-10-27 07:09:00 Jac Navarro [facility] NOTICE OF PRIVACY PRACTICES 2023-10-27 06:49:48 Doctor Unassigned, Fabrica [facility] CONSENT/REFUSAL FOR DIAGNOSIS AND TREATMENT 2023-10-27 06:47:40 Doctor Unassigned, Fabrica [facility] CT ABDOMEN PELVIS W CONTRAST 2022-10-14 17:33:00 Melinda Maciel [facility] XR CHEST 1 VW 2022-10-14 17:10:37 Singer [facility] TROPONIN I 2022-10-14 16:37:00 [facility] COMP. METABOLIC PANEL (11184) 2022-10-14 16[facility]37[facility] 2022-10-14 16:37:00 Melinda Maciel [facility] PROTHROMBIN TIME / INR 2022-10-14 16:37:00 [facility] 2022-10-14 16:37:00 [facility] N-TERMINAL PRO-BNP 2022-10-14 16:37:00 Melinda Maciel [facility] CONSENT/REFUSAL FOR DIAGNOSIS AND TREATMENT 2022-10-14 15:56:36 Doctor Unassigned, Fabrica [facility] CONSENT/REFUSAL FOR DIAGNOSIS AND TREATMENT 2022-03-12 10:03:12 Doctor Unassigned, Fabrica [facility] XR CHEST 1 VW 2022-02-20 09:59:00 Christy Holliday [facility] LIPASE 2022-02-20 09:30:00 Christy Holliday [facility] TROPONIN I 2022-02-20 09:30:00 Christy Holliday [facility] COMP. METABOLIC PANEL ([id number]) 2022-02-20 09:30:00 Christy Holliday [facility] CBC WITH DIFF 2022-02-20 09:30:00 Christy Holldiay [facility] N-TERMINAL PRO-BNP 2022-02-20 09:30:00 Christy Holliday [facility] NOTICE OF PRIVACY PRACTICES 2022-02-20 09:15:02 Doctor Unassigned, Fabrica [facility] CONSENT/REFUSAL FOR DIAGNOSIS AND TREATMENT 2022-02-20 09:14:47 Doctor Unassigned, Fabrica [facility] Encounters Start Date/Time End Date/Time Encounter Type Admission Type Attending [facility] Care Department Encounter ID Source 2024-04-14 16:30:00 2024-04-14 16:30:00 Outpatient DARIEN LOBO [id number] [facility] 2024-04-12 11:00:00 2024-04-12 11:00:00 Outpatient MINNA ORTA [id number] [facility] 2024-04-12 11:00:00 2024-04-12 11:00:00 Outpatient WENDY BROWNLEE [id number] [facility]12 00:00:00 2024-04-12 00:00:00 Outpatient SHARATH HALEY [id number] [facility] 2024-04-05 11:30:00 2024-04-05 11:30:00 Outpatient DARIEN LOBO [id number] [facility] 2024-04-05 00:00:00 2024-04-05 00:00:00 Outpatient DARIEN LOBO [id number] [facility] 2024-03-28 00:00:00 2024-03-28 00:00:00 Outpatient DARIEN LOBO [id number] [facility] 2024-03-15 08:30:00 2024-03-15 08:30:00 Outpatient WENDY BROWNLEE MARIA ELENA [id number] [facility] 2024-02-17 20:58:00 2024-02-17 21:44:00 Emergency X PEG CAMP [facility] ERT [id number] [facility] 2024-02-17 20:58:00 2024-02-17 21:44:00 Emergency Peg Camp [facility] 1.840.114 350.1.13.10 4.2.7.2.686 [id number] [facility] 2024-02-09 13:10:00 2024-02-09 15:14:00 Emergency URSULA SANTOS [facility] [id number] [facility] 2024-02-08 20:38:00 2024-02-08 21:40:00 Emergency X DEMETRIA DAVENPORT [facility] ERT [id number] [facility] 2024-02-08 20:38:00 2024-02-08 21:40:00 Emergency AuDemetria breen [facility] 1.2.840.114 350.1.13.10 4.2.7.2.686 [id number] [facility] 2024-02-08 14:08:00 2024-02-08 17:06:00 Emergency Christina Villarreal [facility] 1.2.840.114 350.1.13.10 4.2.7.2.686 [id number] [id number] [facility] 2024-01-14 04:46:00 2024-01-14 06:23:00 Emergency X JAC NAVARRO [facility] ERT [id number] [facility] 2024-01-14 04:46:00 2024-01-14 06:23:00 Emergency Jac Navarro [facility] 1.2.840.114 350.1.13.10 4.2.7.2.686 [id number] [facility] 2023-12-22 21:51:00 2023-12-22 23:13:00 Emergency X TYLER ROEW [facility] ERT [id number] [facility] 2023-12-22 21:51:00 2023-12-22 23:13:00 Emergency Tyler Rowe [facility] 1.2.840.114 350.1.13.10 4.2.7.2.686 [id number] [facility] 2023-12-21 19:36:00 2023-12-21 21:52:00 Emergency X MELINDA MACIEL [facility] ERT [id number] [facility] 2023-12-21 19:36:00 2023-12-21 21:52:00 Emergency Melinda Maciel [facility] 1.2.840.114 350.1.13.10 4.2.7.2.686 [id number] [facility] 2023-11-10 19:29:00 2023-11-10 20:14:00 Emergency X CHRISTY HOLLIDAY [facility] ERT [id number] [facility] 2023-11-10 19:29:00 2023-11-10 20:14:00 Emergency Christy Holliday [facility] 1.2.840.114 350.1.13.10 4.2.7.2.686 [id number] [id number] [facility] 2023-10-27 00:49:00 2023-10-27 01:41:00 Emergency X JAC NAVARRO [facility] ERT [id number] [facility] 2023-10-27 00:49:00 2023-10-27 01:41:00 Emergency Jac Navarro [facility] 1..840.114 350.1.13.10 4.2.7.2.686 [id number] [id number] [facility] 2023-07-15 00:00:00 2023-07-15 00:00:00 Outpatient DARIEN LOBO [id number] [facility] 2023-06-16 11:30:00 2023-06-16 11:30:00 Outpatient DARIEN LOBO [id number] [facility] 2023-05-18 00:00:00 2023-05-18 00:00:00 Outpatient GROUPMARIA ELENA [id number] [facility] 2022-10-14 10:07:00 2022-10-14 14:39:00 Emergency X MELINDA MACIEL [facility] ERT [id number] [facility] 2022-10-14 10:07:00 2022-10-14 14:39:00 Emergency MacielMelinda [facility] ..840.114 350.1.13.10 4.2.7.2.686 [id number] [facility] 2022-03-12 05:15:00 2022-03-12 06:41:00 Emergency X CHRISTY HOLLIDAY [facility] ERT [id number] [facility] 2022-03-12 05:15:00 2022-03-12 06:41:00 Emergency Christy Holliday [facility] ..840.114 350.1.13.10 4.2.7.2.686 [id number] [facility] 2022-02-20 04:17:00 2022-02-20 07:16:00 Emergency X CHRISTY HOLLIDAY [facility] ERT [id number] [facility] 2022-02-20 04:17:00 2022-02-20 07:16:00 Emergency Christy Holliday [facility] 1.2.840.114 350.1.13.10 4.2.7.2.686 [id number] [id number] [facility] 2021-02-03 11:10:00 2021-02-03 11:10:00 Outpatient DENISE CAMPO [facility] [id number] [facility] 2021-01-13 11:20:00 2021-01-13 11:20:00 Outpatient [facility] [id number] [facility] 2020-11-10 08:20:00 2020-11-10 08:20:00 Outpatient KARLEY ESTRADA [facility] [id number] [facility] Results Test Description Test Time Test Comments Results Result Co mments Source [facility] + Lactic [id number] 20:52:47* Test Item Value Reference Range Interpretation Comme nts PH (test code = 2) 7.39 7.35-7.45 PCO2 (test code = 2347306054) 42 35-45 PO2 (test code = 8941396546) 76 80-100 L HCO3 (test code = 0496136868) 25 22-26 BE (test code = 7104201672) -0.1 -3.0-3.0 THB (test code = 7953498322) 14.3 g/dL 13.5-18.0 %O2HB (test code = 6586374541) 85.8 % 94.0-99.0 L %COHB ART (test code = 0871027616) 9.0 % 0.0-1.5 H %METHB ART (test code = 5139759415) 0.3 % 0.4-1.5 L VOL%O2 ART (test code = 2433763309) 17.3 % 15.0-23.0 NA (test code = 6802549068) 140 mmol/L 135-145 K+ (test code = 6452144780) 4.1 mmol/L 3.5-5.0 AC CA IONZ (test code = 9769276226) 4.50 mg/dL 4.50-5.30 GLUCOSE (test code = 6442658506) 105 mg/dL 70-110 LACTIC ACID (test code = 0297773609) 2.60 mmol/L 0.50-2.20 H Lab Interpretation (test cod e = 73088-4) [facility]normal [facility] [id number] 20:34:14* Test Item Value Reference Range Interpretation Comme nts TROPONIN I (test code = 1771623291) 0.008 ng/mL <=0.034 LOUISE (test code = [...] of biotin. Lab Interpretation (test code = 23220-6) Normal [facility] Bpl-[id number] 20:31:35* Test Item Value Reference Range Interpretation Comme nts NT-proBNP (test code = 81013-2) 188 pg/mL <=125 LOUISE (test code = LOUISE) Result Indeterminate-Consid er causes of NT-proBNP elevation other than Heart failure such as acute coronary syndrome, pulmonary embolism, pulmonary hypertension, sepsis, stroke, and renal dysfunction. Lab Interpretation (test code = 22049-2) Abnormal [facility] Center[facility]. Metabolic Panel (23413)2024-02-08 20:21:10* Test Item Value Reference Range Interpretation Comme nts NA (test code = 3008416017) 135 mmol/L 135-145 K (test code = 6035739261) 4.5 mmol/L 3.5-5.0 CL (test code = 4626063752) 100 mmol/L 98-108 CO2 TOTAL (test code = 5158596183) 22 mmol/L 23-31 L AGAP (test code = 6630182918) 13 2-16 BUN (test code = 0364199650) 8 mg/dL 7-23 GLUCOSE (test code = 3253676102) 97 mg/dL 70-110 CREATININE (test code = 2160-0) 0.65 mg/dL 0.60-1.25 TOTAL BILI (test code = 8943018924) 0.4 mg/dL 0.1-1.1 CALCIUM (test code = 1953584857) 9.4 mg/dL 8.6-10.6 T PROTEIN (test code = 8780787902) 8.2 g/dL 6.3-8.2 ALBUMIN (test code = 9515462734) 4.7 g/dL 3.5-5.0 ALK PHOS (test code = 8094799293) 76 U/L 34-122 ALTv (test code = 1742-6) 33 U/L 5-50 AST(SGOT) (test code = 7841089659) 54 U/L 13-40 H eGFR (test code = 42871-1) 111.3 mL/min/1.73m2 CKD-EPI eGFR (2020). Assuming creatinine has been stable day-to-day for at least three months, the eGFR indicates Category G1 (>= 90 mL/min/1.73 m2) Lab Interpretation (test code = 97352-8) Abnormal [facility] CenterMagnesium2024-04-01 20:21:10* Test Item Value Reference Range Interpretation Comme nts MAGNESIUM (test code = 8907404721) 2.1 mg/dL 1.7-2.4 Lab Interpretation (test cod e = 19487-9) Normal [facility] 1 [id number] 20:07:21EXAM: XR CHEST 1 VW COMPARISON: 01/14/2024 HISTORY: sob FINDINGS: Lungs: Slightly hyperexpanded lungswith subtle progression of interstitialprominence. Trace pleural effusions could be present. Heart/Mediastinum: Stable cardiomegaly. Bones and soft tissues: No osseous abnormality is visualized.[facility] Cbc with [id number] 20:04:26* Test Item Value Reference Range Interpretation [...] 33.8 g/dL 31.2-35.0 RDW-SD (test code = 94672-8) 50.5 fL 38.5-51.6 RDW-CV (test code = 788-0) 14.3 % 12.1-15.4 PLT (test code = 777-3) 206 150-328 MPV (test code = 83525-0) 9.1 fL 9.8-13.0 L NRBC/100 WBC (test code = 8827431861) 0.0 0.0-10.0 NRBC x10^3 (test code = 5644088020) See_Comment [Automated Vertigoa ge] The system which generated this result transmitted reference range: 10*3/?L. The reference range was not used to interpret this result as normal/abnormal. GRAN MAT (NEUT) % (test code = 770-8) 81.0 % IMM GRAN % (test code = 0749061377) 1.20 % LYMPH % (test code = 736-9) 10.9 % MONO % (test code = 5905-5) 6.8 % EOS % (test code = 713-8) 0.0 % BASO % (test code = 706-2) 0.1 % GRAN MAT x10^3(ANC) (test code = 2015670270) 9.31 10*3/uL 1.99-6.95 H IMM GRAN x10^3 (test code = 6602592254) 0.14 10*3/uL 0.00-0.06 H LYMPH x10^3 (test code = 731-0) 1.25 10*3/uL 1.09-3.23 MONO x10^3 (test code = 742-7) 0.78 10*3/uL 0.36-1.02 EOS x10^3 (test code = 711-2) 0.06-0.53 L BASO x10^3 (test code = 704-7) 0.01-0.09 Lab Interpretation (test code = 79476-0) [facility]normal [facility] Center[facility]. METABOLIC PANEL (08058)2023-12-23 04:53:26* Test Item Value Reference Range Interpretation Comme nts NA (test code = 6611667099) 135 mmol/L 135-145 K (test code = 2604444818) 3.2 mmol/L 3.5-5.0 L CL (test code = 8089093596) 104 mmol/L 98-108 CO2 TOTAL (test code = 3976588968) 23 mmol/L 23-31 AGAP (test code = 3534981406) 8 2-16 BUN (test code = 9179102600) 11 mg/dL 7-23 GLUCOSE (test code = 2666140591) 82 mg/dL 70-110 CREATININE (test code = 2160-0) 0.64 mg/dL 0.60-1.25 TOTAL BILI (test code = 0012090773) 0.5 mg/dL 0.1-1.1 CALCIUM (test code = 1665353948) 8.8 mg/dL 8.6-10.6 T PROTEIN (test code = 1782668898) 6.7 g/dL 6.3-8.2 ALBUMIN (test code = 5081336810) 4.1 g/dL 3.5-5.0 ALK PHOS (test code = 7387064484) 46 U/L 34-122 ALTv (test code = 1742-6) 21 U/L 5-50 AST(SGOT) (test code = 7334731697) 43 U/L 13-40 H eGFR (test code = 49181-6) 111.8 mL/min/1.73m2 CKD-EPI eGFR (2020). Assuming creatinine has been stable day-to-day for at least three months, the eGFR indicates Category G1 (>= 90 mL/min/1.73 m2) Lab Interpretation (test code = 15366-1) Abnormal [facility] Center[facility]2024-02-14 04:53:26* Test Item Value Reference Range Interpretation Comme nts LIPASE (test code = 6565553327) 105 U/L 0-220 Lab Interpretation (test cod e = 44121-6) Normal [facility] CenterCBC WITH [id number] 04:34:24* Test Item Value Reference Range Interpretation [...] 33.0 g/dL 31.2-35.0 RDW-SD (test code = 14384-9) 50.9 fL 38.5-51.6 RDW-CV (test code = 788-0) 13.7 % 12.1-15.4 PLT (test code = 777-3) 232 150-328 MPV (test code = 25811-2) 8.7 fL 9.8-13.0 L NRBC/100 WBC (test code = 9910353760) 0.0 0.0-10.0 NRBC x10^3 (test code = 4943277838) See_Comment [Automated messa ge] The system which generated this result transmitted reference range: 10*3/?L. The reference range was not used to interpret this result as normal/abnormal. GRAN MAT (NEUT) % (test code = 770-8) 58.8 % IMM GRAN % (test code = 7035600619) 0.90 % LYMPH % (test code = 736-9) 27.8 % MONO % (test code = 5905-5) 10.5 % EOS % (test code = 713-8) 1.3 % BASO % (test code = 706-2) 0.7 % GRAN MAT x10^3(ANC) (test code = 7449112563) 5.68 10*3/uL 1.99-6.95 IMM GRAN x10^3 (test code = 3935325377) 0.09 10*3/uL 0.00-0.06 H LYMPH x10^3 (test code = 731-0) 2.69 10*3/uL 1.09-3.23 MONO x10^3 (test code = 742-7) 1.02 10*3/uL 0.36-1.02 EOS x10^3 (test code = 711-2) 0.13 10*3/uL 0.06-0.53 BASO x10^3 (test code = 704-7) 0.07 10*3/uL 0.01-0.09 Lab Interpretation (test code = 05769-5) [facility]normal [facility] Center[facility] P[facility] W [id number] 03:32:43Exam: CT Abdomen and Pelvis With Contrast, [...] acute osseous abnormality.Soft tissues: Small fat-containing inguinal hernias.[facility] CenterEthanol2024-02-13 02:32:24* Test Item Value Reference Range Interpretation Comme nts ALCOHOL (test code = 9815392199) 117 mg/dL LOUISE (test code = LOUISE) <10 Njrhvilr56-912 Toxic>100 Depression of POLICY ANALYST>400 Fatalities Reported [facility] CenterComp. Metabolic Panel (80704)2023-12-22 02:31:43* Test Item Value Reference Range Interpretation Comme nts NA (test code = 5260395944) 133 mmol/L 135-145 L K (test code = 3428496666) 3.3 mmol/L 3.5-5.0 L CL (test code = 2796965347) 102 mmol/L 98-108 CO2 TOTAL (test code = 5224864819) 25 mmol/L 23-31 AGAP (test code = 3184247300) 6 2-16 BUN (test code = 8853147927) 11 mg/dL 7-23 GLUCOSE (test code = 4285165981) 75 mg/dL 70-110 CREATININE (test code = 8356361685) 0.51 mg/dL 0.60-1.25 L TOTAL BILI (test code = 6542970826) 0.5 mg/dL 0.1-1.1 CALCIUM (test code = 8626519332) 8.9 mg/dL 8.6-10.6 T PROTEIN (test code = 0876906443) 7.2 g/dL 6.3-8.2 ALBUMIN (test code = 9717680140) 4.5 g/dL 3.5-5.0 ALK PHOS (test code = 6425087655) 46 U/L 34-122 ALTv (test code = 1742-6) 15 U/L 5-50 AST(SGOT) (test code = 3245210216) 24 U/L 13-40 eGFR (test code = 04090-4) 119.7 mL/min/1.73m2 CKD-EPI eGFR (2020). Assuming creatinine has been stable day-to-day for at least three months, the eGFR indicates Category G1 (>= 90 mL/min/1.73 m2) Lab Interpretation (test code = 13854-5) [facility] Test Item Value Reference Range Interpretation Comme nts LIPASE (test code = 9954205523) 121 U/L 0-220 Lab Interpretation (test cod e = 46057-5) [facility] / [id number] 02:21:02* Test Item Value Reference Range Interpretation Comme nts PROTIME PATIENT (test code = 5964-2) 10.5 10.1-12.6 INR (test code = 6301-6) 0.9 Normal INR <1.1; Warfarin Therapeutic range 2.0 to 3.0 or 2.5 to 3.5, depending upon the indications. Lab Interpretation (test code = 15250-4) [facility]xu2919-25-01 02:14:04* Test Item Value Reference Range Interpretation [...] 34.0 g/dL 31.2-35.0 RDW-SD (test code = 14038-8) 49.1 fL 38.5-51.6 RDW-CV (test code = 788-0) 13.5 % 12.1-15.4 PLT (test code = 777-3) 260 150-328 MPV (test code = 51311-2) 8.7 fL 9.8-13.0 L NRBC/100 WBC (test code = 7402276209) 0.0 0.0-10.0 NRBC x10^3 (test code = 0141484348) See_Comment [Automated messa ge] The system which generated this result transmitted reference range: 10*3/?L. The reference range was not used to interpret this result as normal/abnormal. GRAN MAT (NEUT) % (test code = 770-8) 64.3 % IMM GRAN % (test code = 5714566932) 0.90 % LYMPH % (test code = 736-9) 24.2 % MONO % (test code = 5905-5) 9.1 % EOS % (test code = 713-8) 0.7 % BASO % (test code = 706-2) 0.8 % GRAN MAT x10^3(ANC) (test code = 1058543751) 8.73 10*3/uL 1.99-6.95 H IMM GRAN x10^3 (test code = 3771216121) 0.12 10*3/uL 0.00-0.06 H LYMPH x10^3 (test code = 731-0) 3.28 10*3/uL 1.09-3.23 H MONO x10^3 (test code = 742-7) 1.23 10*3/uL 0.36-1.02 H EOS x10^3 (test code = 711-2) 0.10 10*3/uL 0.06-0.53 BASO x10^3 (test code = 704-7) 0.11 10*3/uL 0.01-0.09 H Lab Interpretation (test code = 77283-2) [facility] K4344-66-26 10:16:22* Test Item Value Reference Range Interpretation Comments TROPONIN I (test code = 8570498616) 0.007 ng/mL See_Comment [Automated message] The system [...] of biotin. Lab Interpretation (test code = 85320-2) Normal [facility] P[facility]-ERW8577-02-14 10:13:01* Test Item Value Reference Range Interpretation Comme nts NT-proBNP (test code = 0017999232) 52 pg/mL See_Comment [Automated message] The system which generated this result transmitted reference range: <=125. The reference range was not used to interpret this result as normal/abnormal. LOUISE (test code = LOUISE) Biotin has been reported to cause a negative bias, interpret results relative to patient's use of biotin. Lab Interpretation (test code = 30135-0) Normal [facility] CenterCOMP[facility]OLIC PANEL (68689)2022-02-20 10:04:02* Test Item Value Reference Range Interpretation Comme nts NA (test code = 3893793405) 137 mmol/L 135-145 K (test code = 0334652453) 3.6 mmol/L 3.5-5.0 CL (test code = 3203608175) 99 mmol/L 98-108 CO2 TOTAL (test code = 8198878194) 25 mmol/L 23-31 AGAP (test code = 3137041340) 2-16 BUN (test code = 8799051280) 6 mg/dL 7-23 L GLUCOSE (test code = 1237805431) 88 mg/dL 70-110 CREATININE (test code = 0616553600) 0.55 mg/dL 0.60-1.25 L TOTAL BILI (test code = 8568640387) 0.8 mg/dL 0.1-1.1 CALCIUM (test code = 6820374524) 8.9 mg/dL 8.6-10.6 T PROTEIN (test code = 2422919587) 7.5 g/dL 6.3-8.2 ALBUMIN (test code = 3271292704) 4.8 g/dL 3.5-5.0 ALK PHOS (test code = 2420225838) 113 U/L 34-122 ALTv (test code = 1742-6) 84 U/L 5-50 H AST(SGOT) (test code = 0562902813) 107 U/L 13-40 H eGFR (test code = 2385638760) mL/min/1.73m2 LOUISE (test code = LOUISE) Association [...] imaging tests). Lab Interpretation (test code = 76945-7) [facility]normal [facility] CenterLIPASE, XQFHK3084-93-89 10:03:21* Test Item Value Reference Range Interpretation Comme nts LIPASE (test code = 9719415260) 193 U/L 0-220 Lab Interpretation (test cod e = 34967-4) Normal [facility] CenterCB WITH TATV0656-81-72 09:39:17* Test Item Value Reference Range Interpretation Comme nts WBC (test code = 6690-2) See_Comment [Automated [employer]] The system which generated this result transmitted [...] g/dL 31.2-35.0 H RDW-SD (test code = 11756-2) 44.4 fL 38.5-51.6 RDW-CV (test code = 788-0) 11.9 % 12.1-15.4 L PLT (test code = 777-3) See_Comment [Automated Vertigoa ge] The system which generated this result transmitted reference range: 150 - 328 10*3/?L. The reference range was not used to interpret this result as normal/abnormal. MPV (test code = 56011-0) 9.2 fL 9.8-13.0 L NRBC/100 WBC (test code = 9933470228) See_Comment [Automated doxo ssage] The system which generated this result transmitted reference range: 0.0 - 10.0 /100 WBCs. The reference range was not used to interpret this result as normal/abnormal. NRBC x10^3 (test code = 6272719487) <0.01 See_Comment [Automated messa ge] The system which generated this result transmitted reference range: 10*3/?L. The reference range was not used to interpret this result as normal/abnormal. GRAN MAT (NEUT) % (test code = 770-8) 69.9 % IMM GRAN % (test code = 7201211503) 1.50 % LYMPH % (test code = 736-9) 18.9 % MONO % (test code = 5905-5) 7.0 % EOS % (test code = 713-8) 1.9 % BASO % (test code = 706-2) 0.8 % GRAN MAT x10^3(ANC) (test code = 6713058445) 7.15 10*3/uL 1.99-6.95 H IMM GRAN x10^3 (test code = 8861391296) 0.15 10*3/uL 0.00-0.06 H LYMPH x10^3 (test code = 731-0) 1.93 10*3/uL 1.09-3.23 MONO x10^3 (test code = 742-7) 0.72 10*3/uL 0.36-1.02 EOS x10^3 (test code = 711-2) 0.19 10*3/uL 0.06-0.53 BASO x10^3 (test code = 704-7) 0.08 10*3/uL 0.01-0.09 Lab Interpretation (test code = 42281-6) Abnormal [facility] Notes Date/Time Note Provider Source 2024-02-17 21:43:52 0269-85-54V49:43:52F ormatting of this note might be different from the original.No answer in lobby. 85643-9Alunlxjqx department RqxeKK3970-46-89C99:44:07[facility] department NoteTXT1.2.840.032784.1.13.104.2.7 .2.415195|[id number] for patient amnv56478-2DrqqADBXRDGWYLITntxjjcz d C-CDA narrative jlow442280824Vmkbbi J Hoot RNUT[address] ImauKcnncxxbpPqsiwdfslOXVD24519423 57VJVIBUKHCOQNLQAGAWPPLS2855-48-08 T21:44:071.2.840.566770.1.72.3.15| 1.2.840.802323.1.13.104.2.7.2.7278 79_[id number] Angy Turner RN [facility] 2024-02-17 21:42:10 9997-83-02N13:42:10F ormatting of this note might be different from the original.Pt's blood pressure cuff and pulse ox found lying on chair. Called for patient in lobby 2 times, no answer. No one in lobby. 85664-3Nxdetasgz department BxspLH7077-68-29T15:44:10[facility] NoteTXT1.2.840.413223.1.13.104.2.7 .2.662893|[id number] for patient zlmw50771-7BpdlHRIGTHQYZNXJcntagvo d C-CDA narrative tpap522230579Asorn A. Campbell [address]TXTX[address] 33ESBFIRTUTXMBUOXGUQOKIV9633-37-72 T21:44:101.2.840.392874.1.72.3.15| 1.2.840.404131.1.13.104.2.7.2.7278 79_[id number] Sierra Samaniego RN [facility] 2024-02-17 21:41:09 5601-16-87P97:41:09F ormatting of this note might be different from the original.Pt not in lobby or in room. No answer in lobby. 49631-4Boysrrlsz department RvxyMZ0959-56-21M79:41:40[facility] department NoteTXT1.2.840.670763.1.13.104.2.7 .2.220326|3802519794EUJxhquwben for patient kiwa25041-5UuumSZJDPJYQALCTxouvyzv d C-CDA narrative text[address]TXTX[address] 95EVSTPILOUJJRWZNNJQKEZU9134-51-88 T21:41:401.2.840.391879.1.72.3.15| 1.2.840.760853.1.13.104.2.7.2.7278 79_[id number] [facility] 2024-02-17 21:14:29 3768-74-47V47:14:29F ormatting of this note might be different from the original.Pt not in FT01-01 and no answer in lobby. 65931-4Uwjjgdhxg department XpjxID8265-11-80U46:15:32[facility] department NoteTXT1.2.840.601071.1.13.104.2.7 .2.051396|9074715654NPJslnwxbtd for patient sird43874-8IzllFAZUKCGUGYGXjbmukqy d C-CDA narrative text[address]vd[address]GalvestonTXTX[address] 92TTEKVOCTXGMQNOJBOSWJTV3894-78-84 T21:15:321.2.840.245710.1.72.3.15| 1.2.840.873493.1.13.104.2.7.2.7278 79_[id number] [facility] 2024-02-17 20:48:50 2313-64-85Y05:48:50F ormatting of this note might be different from the original.Pt arrives ambulatory to ED c/o SOB, right upper abdominal pain, and left leg and hip pain. Pt states that he has been on prednisone for about 5 yrs which had given him osteoporosis which is causing his leg pain. Reports hx of COPD, o2 is generally @ 91 he says. 08602-8Jtpyadnse department Triage dtidIZ7645-89-28B55:53:54[facility] department Triage noteTXT1.2.840.443186.1.13.104.2.7 .2.036199|[id number] for patient ozpz73751-5Wtlqsmvdj department NoteLNNARRATIVEFormatted C-CDA narrative jwcs255565030Gykxhb L Dl RN[address]TXTX[address] 33BDHQANFGDZPKDGFYHARQOI2556-91-04 T20:53:541.2.840.682695.1.72.3.15| 1.2.840.774062.1.13.104.2.7.2.7278 79_[id number] Leah Quarles lD MACHUCA [facility] 2024-02-08 21:37:56 4680-32-09V72:37:56F ormatting of this note might be different from the original.Pt left AMA 08829-4Farmpsnjj department WuxgJJ3123-56-76I28:38:11[facility] department NoteTXT1.2.840.591143.1.13.104.2.7 .2.562728|6907231211KCNjfddfuzb for patient izbg44177-6OqfwELTJCDHSBVZIkagxvxy d C-CDA narrative ffiq506565047Vggrq M Martinez RN[address]TXTX[address] 19IDSUKQIKHJFSLRAFCBLRSS4103-86-38 T21:38:111.2.840.007787.1.72.3.15| 1.2.840.501713.1.13.104.2.7.2.7278 79_[id number] Kylie Foster RN [facility] 2024-02-08 21:32:00 0266-78-04K26:32:00F ormatting of this note might be different [...] ambulatory with steady gait, [place] NAD 65939-0Xkldqqaqq department EutaNP3215-80-84H90:40:32[facility] department NoteTXT1.2.840.005772.1.13.104.2.7 .2.876022|5108671264LWBprgyxhwu for patient qeyd06006-4NvdhBQHNIQMJTQDBvmoyhot d C-CDA narrative text[address]TXTX[address] 85UGCQIRYHWMIMOTSGLFRAGL4372-36-89 T21:40:321.2.840.043350.1.72.3.15| 1.2.840.346762.1.13.104.2.7.2.7278 79_[id number] [facility] 2024-02-08 20:54:38 6917-85-57W73:54:38F ormatting of this note might be different from the original.Pt states he uses O2 at home, portable O2 is broken 39470-7Bblzjaxhd[address] [place] [address] JpvrZB4461-79-07X07:55:13[facility] department NoteTXT1.2.840.133530.1.13.104.2.7 .2.422272|5346261981GFSakxpnntg for patient itrt97241-2FjlaLEQGBUXQLSNFzmwrqwn d C-CDA narrative text[address]TXTX[address] 59QYDTPFDETAFSXVCCTSUOBF3369-06-31 T20:55:131.2.840.246975.1.72.3.15| 1.2.840.009544.1.13.104.2.7.2.7278 79_[id number] [facility] 2024-02-08 20:51:11 9635-53-01R14:51:11F ormatting of this note might be different from the original.Pt ambulates with cane 88864-8Afmsbsaad department CkspFX4010-33-63P63:51:26[facility] department NoteTXT1.2.840.033393.1.13.104.2.7 .2.139523|6720353392MEZybuygvlx for patient wxye00940-2IcqkFLFNWBGUBPZHrvesmwy d C-CDA narrative text[address] DewnTsamovgcdHslnjrzimAULS31609668 40GXKXWFXJGYRXJODHFSTCHP5036-32-26 T20:51:261.2.840.265087.1.72.3.15| 1.2.840.119169.1.13.104.2.7.2.7278 79_[id number] [facility] 2024-02-08 20:43:13 2506-23-64B57:43:13F ormatting of this note might be different from the original.CC: Pt arrives SOB after leaving [place] earlier in the shift. He reports he [...] 3 BC powders and drank 3 beers." 03698-6Rkiwvwawc department Triage tqjkDP2362-77-18R47:48:36[facility] department Triage noteTXT1.2.840.048738.1.13.104.2.7 .2.077624|6204826548JNAyfezfdxb for patient wycz11777-0Sywbreqgf department NoteLNNARRATIVEFormatted C-CDA narrative ceey126920675Rumfrn Sarika King RN[address]TXTX[address] 15IPRNIBRWXHZEBLKXXEFPUZ8593-11-00 T20:48:361.2.840.890494.1.72.3.15| 1.2.840.390601.1.13.104.2.7.2.7278 79_[id number] Leah Sarika King RN [facility] 2024-02-08 17:04:05 3118-13-72B93:04:05F ormatting of this note might be different [...] of the department with a steady gait. 38207-2Btrpdfgvq department PjibED9221-26-79M97:05:22[facility] department NoteTXT1.2.840.491290.1.13.104.2.7 .2.431019|1999364921DOQcuzzners for patient ylkd07399-8GctmBMSSZXNDYFWCowzyrah d C-CDA narrative zpsx363025371Jbkg M Hayes RN[address]TXTX[address] 79VVGNWPTDLTFSRAFEVYUMFG7129-21-09 T17:05:221.2.840.812542.1.72.3.15| 1.2.840.973428.1.13.104.2.7.2.7278 79_[id number] Allison Zhang RN [facility] 2024-02-08 14:23:02 5814-59-49B07:23:02F ormatting of this note might be different from the original.Pt ambulates with a cane 60103-8Txlbafehb department HkwhEO8885-22-24V44:23:12[facility] department NoteTXT1.2.840.706146.1.13.104.2.7 .2.643327|4132413435DPPpsjjgsyk for patient kyzh47807-1NxkgLTWOYJJFIYADnqlabsv d C-CDA narrative dkpz751495967RgeqrKylie Foster RN[address] JszyHpaqsyikkIehswiopbJAYM53047768 92SGUKHNAQGYTSWKNSESYOAL8346-28-00 T14:23:121.2.840.037489.1.72.3.15| 1.2.840.619091.1.13.104.2.7.2.7278 79_[id number] Kylie Foster RN [facility] 2024-02-08 14:13:15 2417-59-18X32:13:15F ormatting of this note might be different [...] only thing that helps." Face is flushed. 58834-1Dirvkzqkf department Triage bfwyRL6352-60-45B44:17:26[facility] department Triage noteTXT1.2.840.921952.1.13.104.2.7 .2.874135|5513336073ANGcbngzrpu for patient ieue52052-7Bfvkityff department NoteLNNARRATIVEFormatted C-CDA narrative pqja157822284Shnigur Fizurdo [address]ACH[address]CAUT[address]TXTX[address] 43NSHWPMENUYFRWSLUQXFVHI1280-23-46 T14:17:261.2.840.540561.1.72.3.15| 1.2.840.842998.1.13.104.2.7.2.7278 79_[id number] Hali Traci RN [facility] 2024-01-14 06:16:25 6649-55-42M46:16:25F ormatting of this note might be different [...] w/d, pt leaving in no apparent distress, 56078-5Gjemxtjrq department SjxvDG1660-05-72Z59:17:20[facility] NoteTXT1.2.840.706166.1.13.104.2.7 .2.235175|8585267484IBOeqpvuxsj for patient xwad14649-5KdhdEGKZSHOYYRKVpweacyl d C-CDA narrative text[address]TXTX[address] 43RUPNTWSAFAIXGWFJMNJVAC3438-41-21 T06:17:201.2.840.306818.1.72.3.15| 1.2.840.935636.1.13.104.2.7.2.7278 79_[id number] [facility] 2024-01-14 04:49:43 0924-28-03Q63:49:43F ormatting of this note might be different [...] ext without difficulty, amb with steady gait 34254-8Sgybxshmo department Triage ytdiXC6792-95-94D20:55:49[facility] department Triage noteTXT1.2.840.762292.1.13.104.2.7 .2.053756|2303127236SHZksszlqrc for patient uwwe63051-9Shssbuodk department NoteLNNARRATIVEFormatted C-CDA narrative msbu558351240Mcshfq R Shehadeh RN[address] JwpkRccnxpqeoRjpgtpnqnTQTO01448568 22PEVCXNSLADOHJKFDWNAZZE2647-54-68 T04:55:491.2.840.193909.1.72.3.15| 1.2.840.753157.1.13.104.2.7.2.7278 79_[id number] Leah King RN [facility] 2024-01-14 04:43:00 7095-72-15M59:43:00A ssociated Order(s): EKG-12 Lead ROUTINE ONCEPre-Procedure Diagnose(s): Chest pain, unspecified typePost-Procedure Diagnose(s): Chest pain, unspecified type [facility] Emergency Department NotePatient Name: Randy BrionesDate of : 1970 53 year old maleTreatment Room: TX1/VX1Mnldupd Record Number: [id number] Care Physician: Adrianna King Escorted by: Family [5]Mode of Arrival: Personal means [1]EMS 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 METABOLIC PANEL (80619) - AbnormalResult Value Ref RangeNA 138 135 [...] 49 (*) 13 - 40 U/LeGFR 93.3 mL/min/1.67z1BAZ WITH DIFF - AbnormalWBC 11.59 (*) 4.20 [...] 220 U/LCOVID-19 (ID NOW RAPID TESTING) - WzyjtcWXVW-MmC-0 Rapid ID NOW Not Detected Not DetectedETHANOLALCOHOL 62 mg/dLEKG:If EKG completed, see Procedure Note.Orders and Treatments:Orders Placed This EncounterProcedures XR CHEST 1 VW TROPONIN I COMP. METABOLIC PANEL (58150) LIPASE, SERUM CBC WITH DIFF N-Terminal Pro-Bnp Ethanol COVID-19 (ID NOW TESTING) Lab Only COVID Interpretation O2 Per ProtocolOrders Placed This EncounterMedications morpHINE (4 mg/mL) injection 4 mg ondansetron (ZOFRAN (PF)) injection 4 mg ipratropium-albuteroL (DUONEB) 0.5 mg-3 mg(2.5 mg base)/3 mL nebulizer solution 3 mLFirst Provider Eval:ED EventsDate/Time Event User Hsogukmi34/07/24 0510 Medical Screening Begins JAC NAVARRO MD --01/14/24 0510 First Provider Evaluation JAC NAVARRO MD --ED COURSEDiagnosis/Impression as of 01/14/24 0605Chest pain, unspecified typeBronchitisProcedures:EKG-12 Lead ROUTINE ONCEDate/Time: 01/14/2024 5:24 AMPerformed by: Jac Navarro MDAuthorized by: Jac Navarro MDECYovani interpreted by ED Physician in the absence of a residential energy auditor: yesPrevious ECG:Previous ECG: Compared to currentSimilarity: No [...] on fileFollow-up:Electronically signed by:Jac Navarro MD01/14/24 0600 33746-8Dqoyqgcdl Emergency department IsryDL2460-02-92J82:00:50Physician Emergency department NoteTXT1.2.840.577671.1.13.104.2.7 .2.456246|[id number] for patient zplr29980-8Rkxzezelc department NoteLNNARRATIVEFormatted C-CDA narrative textUT[address]YesvTqvdjbzluTfqkzabxlTQGK73447499 24OGIEOQNURHUSWCVYMNBNBR7035-15-40 T06:00:501.2.840.810288.1.72.3.15| 1.2.840.838484.1.13.104.2.7.2.7278 79_[id number] [facility] 2023-12-22 23:12:16 5565-52-26Y92:12:16F ormatting of this note might be different [...] with steady gait, in no apparent distress, 29379-2Pnoibzlnb department EkytQQ3120-74-82N66:13:50[facility] department NoteTXT1.2.840.254896.1.13.104.2.7 .2.219204|8755440234RRXxqoytqju for patient mckk78132-8MiwzLJJTHWEZIHQPcxnhhth d C-CDA narrative sbdf178993204NnetzMary Magaña RN[address]TXTX[address] 13KJPZPDFCYAWTVYNEKNSUUH7430-91-10 T23:13:501.2.840.552483.1.72.3.15| 1.2.840.863584.1.13.104.2.7.2.7278 79_[id number] Mary Magaña RN [facility] 2023-12-22 21:41:55 0605-41-04F91:41:55F ormatting of this note might be different from the original.Pt arrives ambulatory to ED reporting bleeding with stools and 10/10 abdominal pain. States he was here last night but had to leave before receiving results d/t having to work. Says the pain became worse so he came back in. 79112-1Weepctges department Triage aozpGU9240-48-45P22:48:52[facility] Triage noteTXT1.2.840.347486.1.13.104.2.7 .2.314449|3047818751ZRRzmidrfgj for patient fqtt03481-6Rvhzhnlhg department NoteLNNARRATIVEFormatted C-CDA narrative wzlb615797267Iimlmv L Williams RN[address]TXTX[address] 34VCAWGCNQBQNLFPFEAAXXFY7631-76-53 T21:48:521.2.840.782182.1.72.3.15| 1.2.840.016527.1.13.104.2.7.2.7278 79_[id number] Leah Lizama RN [facility] 2023-12-21 21:31:00 0098-47-37V86:31:00F ormatting of this note might be different [...] with steady gait, appears in no distress. 43298-3Irkcogcfj department PmfbCH3613-44-66J97:38:39[facility] department NoteTXT1.2.840.865590.1.13.104.2.7 .2.474644|3725163831MHFnlqowtqe for patient ojte27114-2BeunJFFBZMAJWFQOpgpirrk d C-CDA narrative sbxu949720874UtnxwMary Magaña RN[address]vdGalvestonGalvestonTXTX[address] 80KYOPIAOZYSXINLRXCDOWMD6629-20-49 T21:38:391.2.840.130424.1.72.3.15| 1.2.840.225833.1.13.104.2.7.2.7278 79_[id number] Mary Magaña RN [facility] 2023-12-21 21:30:00 9595-07-59V01:30:00F ormatting of this note might be different from the original.Pt wished to leave AMA. Pt states " yall were wonderful but 3am come real early." 39373-2Egmgxrxva department YzqxNH3856-80-04F17:36:58[facility] NoteTXT1.2.840.514127.1.13.104.2.7 .2.336696|2626336156WHCquyinxhz for patient nonh69436-9WaejFLVJKZPEZERJtkippnx d C-CDA narrative text[address]TXTX[address] 19LEYIKRCVFKQCJIXKVTLGLR9578-82-14 T21:36:581.2.840.383011.1.72.3.15| 1.2.840.684009.1.13.104.2.7.2.7278 79_[id number] [facility] 2023-12-21 21:26:22 8806-44-76N83:26:22F ormatting of this note might be different from the original.Pt asking to go outside and smoke, wants to go home and eat. Pt educated on risks of leaving AMA. Provider informed pt is in pain. [address] JwkbEE4775-26-18M15:33:35[facility] NoteTXT1.2.840.801024.1.13.104.2.7 .2.900539|2359609949EYEoynbjfos for patient jhvg43189-5RycvWTDMYXXSFPXBxssuinv d C-CDA narrative lzav620651720Kpgrbdyee BRADFORD[address]TXTX[address] 20DWUEZXVULXQFGFPUEZZUTM1953-54-61 T21:33:351.2.840.610841.1.72.3.15| 1.2.840.735894.1.13.104.2.7.2.7278 79_[id number] Leah King RN [facility] 2023-12-21 19:31:50 1152-86-13O84:31:50F ormatting of this note might be different from the original.Pt arrived ambulatory with complaints of bright red rectal bleeding and generalized abdominal pain this afternoon. Pt states his stool was normal consistency but continuous bright red blood. 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 States he vomits all the time but not something new today. 04407-1Frmgbgqhh department Triage lnddMA4131-16-31C61:33:28[facility] department Triage noteTXT1.2.840.461933.1.13.104.2.7 .2.469384|1576993779YUFpxvvuoat for patient hhhg11004-9Nekslfhfq[address] [place] [address] NoteLNNARRATIVEFormatted C-CDA narrative lkpu704124561Ylkejs D Roman RN[address]vdGal[address]onGalvestonTXTX[address] 47YIHUMIIUTVNLIKYWFJCZDO2208-17-66 T19:33:281.2.840.613039.1.72.3.15| 1.2.840.942287.1.13.104.2.7.2.7278 79_2205 Gabi Esqueda RN [facility] 2023-11-10 20:13:39 8611-18-86K01:13:39F ormatting of this note might be different from the original.Pt requesting to leave AMA. ERP notified. Pt counseled to remain, risks of leaving AMA including discussed with pt. Pt continued to decline further ER evaluation at this time. AMA papers signed, witnessed, and placed on patient's chart. Pt left ambulatory. VS stable, no ataxia noted, GCS 15, A&Ox4. 53289-7Ilhduxqsx department WnpzOR1607-38-21D91:13:52[facility] department NoteTXT1.2.840.403218.1.13.104.2.7 .2.851381|4710115248WMHzalffktn for patient fqan69790-1CdpzNESDYKIRTQWJmiyvvtz d C-CDA narrative updx836773995TxtxlqBriseida Medrano RN[address]TXTX[address] 05YVRJUSFBZWTKHRLWAZAPVZ7391-13-71 T20:13:521.2.840.204279.1.72.3.15| 1.2.840.432675.1.13.104.2.7.2.7278 79_[id number] Briseida Medrano RN [facility] 2023-11-10 19:30:29 [id number]:30:29F ormatting of this note might be different from the original.Patient arrived to ED c/o SOB and COPD exacerbation. Symptoms started this morning. Patient wears 3L NC at home. Patient is a smoker. Patient states having the chills, diarrhea, and vomiting. States having sharp pains in chest from coughing. [id number] department Triage [id number]:35:27[facility] Triage [id number] for patient [id number] department NoteLNNARRATIVEFormatted C-CDA narrative [id number]-Umfle McInnis RN[id number] T19:35:271.2.840.268620.1.72.3.15| [id number] Sreedhar Gomez RN [facility]
--- NOTE | 2024-05-02 14:50 | RAD REPORT ---
EXAM DESCRIPTION: CT - Head C Spine Cap Wo Con - 05/02/2024 2:22 pm CLINICAL HISTORY: Head and neck injury with chest and abdominal pain status post fall TECHNIQUE: Computed axial tomography of head, neck, chest, abdomen and pelvis obtained. IV and oral contrast not requested. Coronal and sagittal reconstruction performed. All CT scans are performed using dose optimization technique as appropriate and may include automated exposure control or mA/KV adjustment according to patient size. COMPARISON: April 29, 2024 CT chest March 2024 head C-spine,, chest and abdomen CT FINDINGS: An intracranial bleed is not seen. The ventricles are normal in caliber. An extra-axial fluid collection is not noted. Fluid within the sinuses/mastoids is not seen. A cervical fracture is not seen. No dislocation is noted. The evaluation of mediastinum, manuel, vessels, solid organs and bowel are limited secondary to the lac k of contrast administration. A mediastinal hematoma is not noted. A pleural effusion is not seen. A lung contusion is not present. A displaced rib fracture is not seen The liver,spleen, pancreas, adrenals,kidneys and bladder do not demonstrate an acute traumatic injury Small nonobstructing left renal calculus. Small bilateral hernias IMPRESSION: No acute intracranial abnormality is seen. A cervical fracture is not visualized. If the patient continues to have symptoms to suggest intracran ial/spinal cord pathology MRI be recommended No acute traumatic abnormality involving the chest, abdomen or pelvis
[2024-05-02 15:04] LABS: Absolute Basophils 0.1 K/uL (0-0.5); Absolute Monocytes 0.2 K/uL (0.1-1.3); Absolute Neutrophil 13.5 K/uL (1.8-8.0); Basophils % 0.6 % (0-1.3); Eosinophils % 0.1 % (0-4.4); Hematocrit 34.7 % (39.6-49.0); Hemoglobin 11.6 g/dL (13.6-17.9); MCH 33.4 pg (27.0-35.0); MCHC 33.5 g/dL (32.0-36.0); MCV 99.7 fL (80-100); MPV 7.4 fL (7.6-11.3); Monocytes % 1.4 % (3.3-12.3); Neutrophils % 90.9 % (41.7-73.7); Nucleated Red Blood Cells % 0.1 % (0-0); Platelets 298 thou/uL (152-406); RBC Red Blood Cell Count 3.48 M/uL (4.33-5.43); Red Cell Distribution Width 17.2 % (12.1-15.2)
[2024-05-02] MEDS ORDERED: HYDROMORPHONE HCL 1 MG/ML INJ ONE (15:34)
[2024-05-02] MEDS ORDERED: LEVALBUTEROL 1.25 MG/3 ML NEB ONE (15:34)
--- NOTE | 2024-05-02 15:40 | RAD REPORT ---
EXAM DESCRIPTION: RAD - Forearm Left - 05/02/2024 3:24 pm CLINICAL HISTORY: Left forearm pain status post injury FINDINGS: No fracture involving the radius/ulna seen.
[2024-05-02 15:44] LABS: PT Prothrombin Time 10.1 SECONDS (9.4-12.5); PTT, Activated Partial Thromb 30.9 SECONDS (24.3-36.9); Protime INR 0.92
--- NOTE | 2024-05-02 16:26 | EDPHYS ---
Physician Documentation [facility] Name: Randy Briones Age: 53 yrs Sex: Male : 1970 Arrival Date: 05/02/2024 Time: 13:57 Bed 18 Private MD: ED Physician Dheeraj Thibodeaux HPI: 05/02 15:02 This 53 yrs old Male presents to ER via EMS with complaints of Fall Injury. rn 15:02 Details of fall: The patient fell from an upright position. rn 15:02 Associated injuries: The patient sustained injury to the chest. Severity of symptoms: rn At their worst the symptoms were moderate, in the emergency department the symptoms are unchanged. The patient has not experienced similar symptoms in the past. EMS and patient report fall, from standing, injured left ribs and left forearm. Denies taking blood thinners. Is a daily drinker.. Historical: - Allergies: 14:15 Lisinopril; me1 - PMHx: 14:15 Alcoholism; COPD; Hepatitis B (Hypertension); home 02 3LNC PRN; Hypertension; me1 Osteoporosis; - PSHx: 14:15 Amputation of left index finger; me1 - Immunization history:: Adult Immunizations unknown. - Infectious Disease History:: Denies. - Immunization history: Last tetanus immunization: unknown. - Social history:: Smoking status: Patient reports the use of cigarette tobacco products, smokes two packs cigarettes per day. - Family history:: not pertinent. - Hospitalizations: : The patient was recently seen at [facility]. ROS: 15:02 Constitutional: Negative for fever, chills, and weight loss, Eyes: Negative for injury, rn pain, redness, and discharge, Neck: Negative for injury, pain, and swelling, Cardiovascular: Positive for left rib tenderness and pain Respiratory: Positive for shortness of breath Abdomen/GI: Negative for abdominal pain, nausea, vomiting, diarrhea, and constipation, Back: Negative for injury and pain, MS/Extremity: Positive for left forearm injury and bruising Skin: Negative for injury, rash, and discoloration, Neuro: Negative for headache, weakness, numbness, tingling, and seizure, Exam: 15:02 Constitutional: This is a well developed, well nourished patient who is awake, alert, rn appears in pain Head/Face: Normocephalic, atraumatic. ENT: No oral trauma noted Neck: No midline cervical tenderness Cardiovascular: Regular rate and rhythm. No pulse deficits. Respiratory: Wheezing throughout, no retractions Abdomen/GI: Soft, nontender, no ecchymosis Back: No spinal tenderness MS/ Extremity: Pulses equal, no cyanosis. Full range of motion of the left arm, moderate ecchymosis along left forearm, no bony tenderness, no laceration Neuro: Awake and alert, GCS 15 Vital Signs: 14:12 BP 125 / 87; Pulse 101; Resp 20; Temp 98.1(O); Pulse Ox 98% on 3 lpm NC; Weight 69.85 me1 kg; Height 5 ft. 6 in. ; Pain 10/10; 15:00 BP 117 / 71; Pulse 95; Resp 19; Pulse Ox 95% on 3 lpm NC; me1 16:11 BP 113 / 68; Pulse 96; Resp 14; Pulse Ox 93% on R/A; me1 14:12 Body Mass Index 24.86 (69.85 kg, 167.64 cm) me1 14:12 Pain Scale: Adult me1 Shani Coma Score: 14:15 Eye Response: spontaneous(4). Motor Response: obeys commands(6). Verbal Response: me1 oriented(5). Total: 15. Trauma Score (Adult): 14:15 Eye Response: spontaneous(1); Verbal Response: oriented(1); Motor Response: obeys me1 commands(2); Systolic BP: > 89 mm Hg(4); Respiratory Rate: 10 to 29 per min(4); [place] Score: 15; Trauma Score: 12 MDM: 14:05 Patient medically screened. rn 16:24 Differential diagnosis: closed head injury, contusion, fracture, sprain, strain. Data rn reviewed: vital signs, nurses notes, lab test result(s), radiologic studies, CT scan, and as a result, I will discharge patient. Counseling: I had a detailed discussion with the patient and/or guardian regarding the historical points, exam findings, and any diagnostic results supporting the discharge/admit diagnosis, lab results, radiology results, the need for outpatient follow up, to return to the emergency department if symptoms worsen or persist or if there are any questions or concerns that arise at home. Response to treatment: the patient's symptoms have mildly improved after treatment. Special discussion: I discussed with the patient/guardian in detail that at this point there is no indication for admission to the hospital. It is understood, however, that if the symptoms persist or worsen the patient needs to return immediately for re-evaluation. ED course: No acute traumatic findings on imaging. No broken ribs. No acute process in the lungs either. Patient better after pain medication. Will discharge home with return precautions. I have personally reviewed all of the results, including but not limited to blood tests and imaging deemed necessary to safely discharge this patient at this time. All results given to and printed out for patient. I personally went over all the results with the patient and answered all questions. Patient will follow-up with PCP and or specialist as discussed. Return precautions given and understood.. 16:25 Care significantly affected by the following chronic conditions: Chronic Obstructive rn Pulmonary Disease. 05/02 14:10 Order name: CBC with Diff rn 05/02 14:10 Order name: Protime (+inr); Complete Time: 16:06 05/02 14:10 Order name: Ptt, Activated; Complete Time: 16:06 05/02 14:10 Order name: CT Traumagram (Head C Spine CAP wo con); Complete Time: 14:58 05/02 15:02 Order name: XRAY Forearm LEFT; Complete Time: 16:06 05/02 14:10 Order name: IV Start; Complete Time: 14:56 05/02 15:01 Order name: Labs - recollect needed: recollect blue top; Complete Time: 15:31 bd Administered Medications: 15:39 Drug: HYDROmorphone IVP 1 mg IVP once Route: IVP; Site: right antecubital; me1 16:58 Follow up: Response: No adverse reaction; Pain is decreased me1 15:39 Drug: Levalbuterol Inhalation 1.25 mg Inhalation once Route: Inhalation; me1 16:57 Follow up: Response: No adverse reaction; Wheezing diminished me1 Disposition Summary: 05/02/24 16:25 Discharge Ordered Notes: Location: Home rn Problem: new rn Symptoms: have improved rn Condition: Stable rn Diagnosis - Contusion of left front wall of thorax rn - Contusion of left forearm rn Followup: rn - With: Private Physician - When: As needed - Reason: Recheck today's complaints, Re-evaluation by your physician Discharge Instructions: - Discharge Summary Sheet rn - Rib Contusion rn Forms: - Medication Reconciliation Form rn - Antibiotic rn mobile - Prescription Opioid Use rn - Patient Portal Instructions rn - Leadership Thank You Letter rn Signatures: Dispatcher [employer] EDMS Leticia Alvarez Roman, MD MD rn Eddleman, Michelle, RN RN me1 Corrections: (The following items were deleted from the chart) 14:10 14:10 CBC+H.LAB.BRZ ordered. EDMS EDMS 14:10 14:10 PROTIME (+INR)+COAG.LAB.BRZ ordered. EDMS EDMS 14:10 14:10 PTT, ACTIVATED+COAG.LAB.BRZ ordered. EDMS EDMS 14:11 14:10 Head C Spine Cap Wo Con+CT.RAD.BRZ ordered. EDMS EDMS
--- NOTE | 2024-05-02 16:26 | ER ---
Nurse's Notes [facility] Name: Randy Briones Age: 53 yrs Sex: Male : 1970 Arrival Date: 05/02/2024 Time: 13:57 Bed 18 Private MD: Diagnosis: Contusion of left front wall of thorax;Contusion of left forearm Presentation: 05/02 14:12 Chief complaint: EMS states: toned out for fall. Patient fell and has a bruise to left me1 forearm, c/o pain to left ribs. Patient was altered upon arrival on room air, became more alert with o2 at 3lpm via nc. States he has had 6 pack of tall boys to drink today. Coronavirus screen: Vaccine status: Patient reports receiving the 2nd dose of the covid vaccine. Ebola Screen: No symptoms or risks identified at this time. Initial Sepsis Screen: Does the patient meet any 2 criteria? No. Patient's initial sepsis screen is negative. Does the patient have a suspected source of infection? No. Patient's initial sepsis screen is negative. Risk Assessment: Do you want to hurt yourself or someone else? Patient reports no desire to harm self or others. Onset of symptoms was May 02, 2024. 14:12 Method Of Arrival: EMS: [facility] 14:12 Acuity: CANDACE 3 [facility] 14:15 Care prior to arrival: None. Mechanism of Injury: Fall unsure. Trauma event details: me1 Injury occurred in the [facility]. Triage Assessment: 14:15 General: Appears uncomfortable, obese, well developed, well nourished, Behavior is me1 calm, cooperative, appropriate for age, Reports s/p fall, c/o pain to left forearm where it is bruised and c/o pain to left ribs. Pain: Complains of pain in left lateral anterior chest and left forearm Pain does not radiate. Pain currently is 10 out of 10 on a pain scale. Quality of pain is described as sharp, Pain began suddenly, Is continuous. EENT: No signs and/or symptoms were reported regarding the EENT system. Neuro: Level of Consciousness is awake, alert, obeys commands, Oriented to person, place, time, situation, Appropriate for age. Cardiovascular: Capillary refill < 3 seconds Patient's skin is warm and dry. Respiratory: Airway is patent Respiratory effort is even, unlabored, Respiratory pattern is regular, symmetrical. GI: No signs and/or symptoms were reported involving the gastrointestinal system. : No signs and/or symptoms were reported regarding the genitourinary system. Derm: Bruising that is dark purple, on palmar aspect of left forearm. Musculoskeletal: Reports pain in left lateral anterior chest. Injury Description: fall. Trauma Activation: Physician: ED Physician; Name: ; Notified At: ; Arrived At: Physician: General Surgeon; Name: ; Notified At: ; Arrived At: Physician: Radiology; Name: ; Notified At: ; Arrived At: Physician: Respiratory; Name: ; Notified At: ; Arrived At: Physician: Lab; Name: ; Notified At: ; Arrived At: 14:15 n/a me1 Historical: - Allergies: 14:15 Lisinopril; me1 - PMHx: 14:15 Alcoholism; COPD; Hepatitis B (Hypertension); home 02 3LNC PRN; Hypertension; me1 Osteoporosis; - PSHx: 14:15 Amputation of left index finger; me1 - Immunization history:: Adult Immunizations unknown. - Infectious Disease History:: Denies. - Immunization history: Last tetanus immunization: unknown. - Social history:: Smoking status: Patient reports the use of cigarette tobacco products, smokes two packs cigarettes per day. - Family history:: not pertinent. - Hospitalizations: : The patient was recently seen at [facility]. Screenin:12 [facility] ED Fall Risk Assessment (Adult) History of falling in the last 3 months, me1 including since admission Yes- single mechanical fall (1 pt) Confusion or Disorientation No (0 pts) Intoxicated or Sedated Yes (3 pts) Impaired Gait No (0 pts) Mobility Assist Device Used No (0 pt) Altered Elimination No (0 pt) Score/Fall Risk Level 3 or more points = High Risk Maintained a safe environment, Hourly rounding (assess needs \T\ fall precautionary measures) done, Used ambulatory aids as needed (educated on \T\ assisted with). Abuse screen: Denies threats or abuse. Nutritional screening: No deficits noted. Tuberculosis screening: No symptoms or risk factors identified. Primary Survey: 14:15 NO uncontrolled hemorrhage observed. A: The client is awake and alert. The airway is me1 patent. The client is alert. Airway: patent, No supplemental oxygen in use on arrival. Oral cavity: clear, gag reflex present, Trachea midline. Breathing/Chest: Spontaneous respiratory effort, equal unlabored respirations, breath sounds clear bilaterally, regular pattern, symmetrical chest rise and fall. Respiratory effort: spontaneous, unlabored, Breath sounds: clear, bilaterally. Circulation: No external hemorrhage present. Regular and strong central pulse, skin warm/dry/normal color. Hemorrhage: No external hemorrhage noted. Pulses: palpable right radial artery and left radial artery. Skin color: pink, Skin temperature: warm, dry, Heart tones present. Disability Pupils are equal, round, reactive to light and accommodation. Client is alert. Exposure/Environment: All clothing and personal items were removed. Forensic evidence collection is not deemed to be indicated at this time. Items placed in patient belonging bag. There is no evidence of uncontrolled external bleeding. Obvious injury(ies) are noted at this time: c/o pain to left forearm and left ribs A warming method has been applied: A warm blanket has been provided to the patient. Reassessment Alertness and Airway: Awake and alert. The airway is patent. Airway Patent Oxygen No O2 Oral cavity Clear +Gag reflex Trachea Midline Breathing: Spontaneous respiratory effort, equal unlabored respirations, breath sounds clear bilaterally, regular pattern with symmetrical chest rise and fall. Respiratory effort Spontaneous Unlabored Breath sounds Clear Respiratory pattern Regular Chest inspection Symmetrical Circulation: No external hemorrhage noted. Regular and strong central pulse, skin warm/dry/normal color. Heart tones Present Pulses Palpable Color [place] Temperature Warm Dry Disability: Pupils Pupils are equal, round, reactive to light and accomodation. Assessment: 14:18 General: see triage assessment. . me1 16:49 Neuro: Level of Consciousness is awake, alert, obeys commands, Oriented to person, ph place, time, situation, Appropriate for age. Cardiovascular: Patient's skin is warm and dry. Respiratory: Airway is patent Respiratory effort is even, unlabored. Vital Signs: 14:12 BP 125 / 87; Pulse 101; Resp 20; Temp 98.1(O); Pulse Ox 98% on 3 lpm NC; Weight 69.85 me1 kg; Height 5 ft. 6 in. ; Pain 10/10; 15:00 BP 117 / 71; Pulse 95; Resp 19; Pulse Ox 95% on 3 lpm NC; me1 16:11 BP 113 / 68; Pulse 96; Resp 14; Pulse Ox 93% on R/A; me1 14:12 Body Mass Index 24.86 (69.85 kg, 167.64 cm) me1 14:12 Pain Scale: Adult me1 [place] Coma Score: 14:15 Eye Response: spontaneous(4). Motor Response: obeys commands(6). Verbal Response: me1 oriented(5). Total: 15. Trauma Score (Adult): 14:15 Eye Response: spontaneous(1); Verbal Response: oriented(1); Motor Response: obeys me1 commands(2); Systolic BP: > 89 mm Hg(4); Respiratory Rate: 10 to 29 per min(4); Shani Score: 15; Trauma Score: 12 ED Course: 14:04 Patient arrived in ED. me1 14:05 Dheeraj Thibodeaux MD is Attending Physician. rn 14:12 Radha Bliss RN is Primary Nurse. me1 14:12 Patient has correct armband on for positive identification. Bed in low position. Call md1 light in reach. Side rails up X2. Provided Education on: POC. Verbalized understanding. . Client placed on continuous cardiac and pulse oximetry monitoring. NIBP monitoring applied. Pulse ox on. NIBP on. 14:12 No provider procedures requiring assistance completed. me1 14:15 Triage completed. me1 14:15 Arm band placed on Patient placed in an exam room. me1 14:15 O2 via room air. me1 14:15 Oxygen administration via nasal cannula \T\ 3L/min. me1 14:23 CT Traumagram (Head C Spine CAP wo con) In Process Unspecified. EDMS 14:56 Protime (+inr) Sent. me1 14:56 Ptt, Activated Sent. me1 14:56 CBC with Diff Sent. me1 14:56 Initial lab(s) drawn, by me, sent to lab. Missed attempt(s): 22 gauge in right me1 antecubital area. 15:26 XRAY Forearm LEFT In Process Unspecified. EDMS 15:30 Lab(s) recollected, by me, sent to lab. Inserted saline lock: 22 gauge in right me1 antecubital area, using aseptic technique. 16:47 IV discontinued, intact, bleeding controlled, No redness/swelling at site. Pressure ph dressing applied. Administered Medications: 15:39 Drug: HYDROmorphone IVP 1 mg IVP once Route: IVP; Site: right antecubital; me1 16:58 Follow up: Response: No adverse reaction; Pain is decreased me1 15:39 Drug: Levalbuterol Inhalation 1.25 mg Inhalation once Route: Inhalation; me1 16:57 Follow up: Response: No adverse reaction; Wheezing diminished me1 Medication: 16:57 VIS not applicable for this client. me1 Output: 14:15 Urine: 1000ml; Total: 1000ml. me1 Outcome: 16:25 Discharge ordered by . rn 16:47 Discharged to home ambulatory, ph 16:47 Condition: good 16:47 Discharge instructions given to patient, Instructed on discharge instructions, follow up and referral plans. Demonstrated understanding of instructions, follow-up care, 16:50 Patient left the ED. ph Signatures: Dispatcher [employer] Dheeraj Dockery MD MD rn Hall, Patricia, RN RN Radha Bliss RN RN me1
[2024-05-02 18:48] LABS: White Blood Cell Scan OK (OK)
[2024-05-02 18:49] LABS: Blood Morphology Comment NOT SEEN (NOT SEEN); Platelet Estimate ADEQ
[2024-05-02 23:16] VITALS: BP 113/68; TEMP 98.1; O2SAT 93
== END 2024-05-02 16:50 | disposition home or self-care (01) ==
LOC: ER 13:57
DX: S20.212A Contusion of left front wall of thorax, initial encounter (principal); S50.12XA Contusion of left forearm, initial encounter; F10.20 Alcohol dependence, uncomplicated; F17.210 Nicotine dependence, cigarettes, uncomplicated
CPT/HCPCS: 85025; 36415; 85610; 85730; 70450; 71250; 72125; 73090; J7614; J1170

== ENCOUNTER 2024-05-04 09:52 | Emergency (ER) | payer OTHER ==
--- OUTSIDE RECORDS SUMMARY | 2024-05-04 10:07 | XMS REPORT | Continuity of Care Document ---
Author Name Unknown Address [address] [facility] [address] [place] [address] [facility] Address [address] 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 Name Role Phone GIRISH LOPEZIsaiasROMEO Primary Care Physician Unavailab DARIEN Posey Attending Clinician Unavailable MINNA ORTA Attending Clinician Unavailab WENDY High Attending Clinician Unava ilSHARATH Randolph Attending Clinician Unavailable PEG CAMP Attending Clinician Unavailable Peg Camp NP Attending Clinician [phone] URSULA QUINTANILLA Attending Clinician Unavailable DEMETRIA DAVENPORT Attending Clinician UnaDemetria Carver MD Attending Clinician + Christina Victoria Attending Clinician [phone] JAC NAVARRO Attending Clinician Unavailable Jac Navarro MD Attending Clinician [phone] TYLER ROWE Attending Clinician Unavailab MELINDA Boothe Attending Clinician Unavailable Melinda Maciel DO Attending Clinician [phone] CHRISTY HOLLIDAY Attending Clinician Unavailable Christy Holliday MD Attending Clinician [phone] MARIA ELENA CHAN Attending George akins Unavailable DENISE SUNG Attending Clinician Unavailable KARLEY ADAMS Attending Clinician Unavailable JAC NAVARRO Admitting Clinician Unavailable MELINDA MACIEL Admitting Clinician Unavailable CHRISTY HOLLIDAY Admitting Clinician Unavailable Payers Payer Name Policy Type Policy Number Effective Date Expirati on Date Source [facility] VINOD LEE COPAY FOCUS 9 [id number] 2024 00:00:00 [id number] 2023 00:00:00 2024 00:00:00 [employer] [id number] 2023 00:00:00 [employer] 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[employer] CARET[employer]ER RESORT 94 ON 9 [id number] 2023 00:00:00 Problems Condition Name Condition Details Condition Category Status Onset Date Resolution Date Last Treatment Date Treating Clinician Comments Source Acute exacerbati on of chronic obstructiv e pulmonary disease (COPD) Acute exacerbati on of chronic obstructiv e pulmonary disease (COPD) Disease Active 03-24 00:00: 00 [facility] Obesity (BMI 30-39.9) Obesity (BMI 30-39.9) Disease Active 03-24 00:00: 00 [facility] Allergies, Adverse Reactions, Alerts Allergy Name Allergy Type Status Severity Reaction(s) Onset Date Inactive Date Treating Clinician Comments Source Lisinopr il Propensi ty to adverse reaction s Active Anaphylaxis 03-24 00:00: 00 [facility] LISINOPR IL DRUG INGREDI Active Anaphylaxis 03-24 00:00: 00 [facility] Social History Social Habit Start Date Stop Date Quantity Comments Source History of tobacco use Smokes tobacco daily [facility] function 2024-02-08 00:00:00 2024-02-08 00:00:00 [facility] Alcohol intake 2024-02-08 00:00:00 2024-02-08 00:00:00 4.29 /d [facility] Exposure to SARS-CoV-2 (event) 2022-10-04 00:00:00 2022-10-14 10:25:00 Not sure [facility] Tobacco use and exposure 2018-03-24 00:00:00 2018-03-24 00:00:00 User of smokeless tobacco [facility] Tobacco Comment 2018-03-24 00:00:00 2018-03-24 00:00:00 trying to quit [facility] Sex Ass[birth year] At 1970 00:00:00 1970 00:00:00 [facility] Smoking Status Start Date Stop Date Source Smokes tobacco daily 2018-03-24 00:00:00 [facility] Medications Ordered Medication Name Filled Medication Name Start Date Stop Date Current Medication? Ordering Clinician Indication Dosage Frequency Signature (SIG) Comments Components Source ketorolac (TORADOL) injection 30 mg 02-17 03:15: 00 02-17 15:14 :00 Yes 30mg 30 mg, Slow IV Push, ONCE, 1 dose, On Thu02/17/24 at 2215, Routine [facility] methylpredn isolone sod succ (SOLU-MEDRO L) injection 125 mg 02-17 03:00: 00 02-17 14:59 :00 Yes 125mg 125 mg, Intravenou s, ONCE, 1 dose, On Thu02/17/24 at 2200, 2 mL [facility] ipratropium -albuteroL (DUONEB) 0.5 mg-3 mg(2.5 mg base)/3 mL nebulizer solution 6 mL 02-17 03:00: 00 02-17 14:59 :00 Yes 6mL 6 mL, Inhalation , ONCE NOW, 1 dose, On Thu02/17/24 at 2200, Routine [facility] NaCl 0.9% (NS) bolus infusion 1,000 mL 02-17 03:00: 00 02-17 14:59 :00 Yes 1000mL at 999 mL/hr, 1,000 mL, IV Infusion, ONCE, 1 dose, On Thu02/17/24 at 2200, [facility] triamterene -hydrochlor othiazide 37.5-25 mg per capsule 02-16 20:52: 37 02-16 00:00 :00 No 1{capsu le} Take 1 capsule by mouth every morning. [facility] albuterol 5 mg/mL nebulizer solution 02-16 20:51: 42 02-16 00:00 :00 No 2.5mg Inhale 2.5 mg every 6 (six) hours as needed for Wheezing or Shortness of Breath. [facility] ketorolac (TORADOL) injection 15 mg 02-08 03:00: 00 02-08 02:21 :00 No 15mg 15 mg, Slow IV Push, ONCE, 1 dose, On Thu02/08/24 at 2200, Routine [facility] iopamidol (ISOVUE 370-500 mL) injection 100 mL 02-07 22:30: 00 02-07 22:30 :00 Yes [id number] 100mL 100 mL, Intravenou s, ONCE, 1 dose, On Thu02/08/24 at 1730, Routine [facility] ipratropium -albuteroL (DUONEB) 0.5 mg-3 mg(2.5 mg base)/3 mL nebulizer solution 3 mL 02-07 21:15: 00 02-07 20:45 :00 No 3mL 3 mL, Inhalation , ONCE, 1 dose, On Thu02/08/24 at 1615, Routine [facility] morpHINE (2 mg/mL) injection 4 mg 02-07 21:15: 00 02-07 20:27 :00 No 4mg 4 mg, Slow IV Push, ONCE, 1 dose, On Thu02/08/24 at 1615, STAT [facility] ondansetron (ZOFRAN (PF)) injection 4 mg 02-07 21:15: 00 02-07 20:22 :00 No 4mg 4 mg, Slow IV Push, ONCE, 1 dose, On Thu02/08/24 at 1615, [facility] magnesium sulfate in water 2 gram/50 mL (4 %) infusion 2 g 02-07 21:00: 00 02-07 21:30 :00 No 2g 2 g, IV Piggyback, Administer over 60 Minutes, ONCE, 1 dose, On Thu02/08/24 at 1600, Routine [facility] ipratropium -albuteroL (DUONEB) 0.5 mg-3 mg(2.5 mg base)/3 mL nebulizer solution 3 mL 02-07 20:30: 00 02-07 19:31 :00 No 3mL 3 mL, Inhalation , ONCE, 1 dose, On Thu02/08/24 at 1530, [facility] HYDROcodone -acetaminop hen (NORCO) 10-325 mg tablet 1 tablet 01-13 13:15: 00 01-13 12:15 :00 No 1{tbl} 1 tablet, Oral, ONCE, 1 dose, On Thu01/14/24 at 0715, [facility] ipratropium -albuteroL (DUONEB) 0.5 mg-3 mg(2.5 mg base)/3 mL nebulizer solution 3 mL 01-13 13:00: 00 01-13 11:53 :00 No 3mL 3 mL, Inhalation , ONCE NOW, 1 dose, On Thu01/14/24 at 0700, [facility] ondansetron (ZOFRAN (PF)) injection 4 mg 01-13 11:30: 00 01-13 11:37 :00 No 4mg 4 mg, Slow IV Push, ONCE, 1 dose, On Thu01/14/24 at 0530, [facility] morpHINE (4 mg/mL) injection 4 mg 01-13 11:30: 00 01-13 11:37 :00 No 4mg 4 mg, Slow IV Push, ONCE, 1 dose, On Thu01/14/24 at 0530, STAT [facility] azithromyci n (ZITHROMAX Z-PORTER) 250 mg tablet 01-13 00:00: 00 02-16 00:00 :00 No [id number] Take 500 mg on day 1 then 250 mg on days 2-5 [facility] predniSONE 20 mg tablet 01-13 00:00: 00 02-16 00:00 :00 No [id number] Take 1 po tid x 2 days, then take 1 po bid x 3 days, then take 1 po daily x 3 days. [facility] acetaminoph en-codeine 300-30 mg tablet 01-13 00:00: 00 01-21 04:59 :00 No [id number] 1{tbl} Take 1 tablet by mouth every 6 (six) hours as needed for Pain (scale 7-10) (severe cough) for up to 7 days. Indication s: acute pain, severe cough [facility] clonazePAM 1 mg tablet 12-26 00:00: 00 02-16 00:00 :00 No 1mg Take 1 tablet by mouth at bedtime as needed for Other (anxiety). [facility] KCL (KLOR-CON M20) tablet 40 mEq 12-23 05:00: 00 12-23 05:07 :00 No 40meq 40 mEq, Oral, ONCE, 1 dose, On Thu12/22/23 at 2300, [facility] NaCl 0.9% (NS) bolus infusion 1,000 mL 12-23 05:00: 00 12-23 05:09 :00 No 1000mL at 999 mL/hr, 1,000 mL, IV Infusion, ONCE, 1 dose, On Thu12/22/23 at 2300, [facility] ondansetron (ZOFRAN (PF)) injection 4 mg 12-23 04:30: 00 12-23 04:24 :00 No 4mg 4 mg, Slow IV Push, ONCE, 1 dose, On Thu12/22/23 at 2230, [facility] maalox:diph enhydrAMINE :lidocaine 2 % viscous 1:1:1 (FIRST-MOUT HWASH BLM) oral suspension 15 mL 12-23 04:15: 00 12-23 04:17 :00 No 15mL 15 mL, Oral, ONCE, 1 dose, On Thu12/22/23 at 2215, Routine [facility] famotidine (PEPCID (PF)) injection 20 mg 12-23 04:15: 00 12-23 04:15 :00 No 20mg 20 mg, Slow IV Push, ONCE, 1 dose, On Thu12/22/23 at 2215, [facility] HYDROcodone -acetaminop hen (NORCO) 10-325 mg tablet 1 tablet 12-22 04:30: 00 12-22 16:29 :00 No 1{tbl} 1 tablet, Oral, ONCE, 1 dose, On Thu12/21/23 at 2230, Routine [facility] pantoprazol e (PROTONIX) 80 mg in NaCl 0.9% (NS) 20 mL syringe 12-22 04:15: 00 12-22 16:14 :00 No 80mg 80 mg, IV Push, ONCE, 1 dose, On Thu12/21/23 at 2215, Administer over 2 Minutes, 20 mL [facility] iopamidol (ISOVUE 370-500 mL) injection 100 mL 12-22 03:30: 00 12-22 03:30 :00 No [id number] 100mL 100 mL, Intravenou s, ONCE, 1 dose, On Thu12/21/23 at 2130, Routine [facility] morpHINE (4 mg/mL) injection 4 mg 12-22 03:30: 00 12-22 02:16 :00 No 4mg 4 mg, Slow IV Push, ONCE, 1 dose, On Thu12/21/23 at 2130, Routine [facility] ondansetron (ZOFRAN (PF)) injection 4 mg 12-22 02:45: 00 12-22 02:02 :00 No 4mg 4 mg, Slow IV Push, ONCE, 1 dose, On Thu12/21/23 at 2045, Routine [facility] hydrocortis one 25 mg suppository 12-22 00:00: 00 Yes [id number] 25mg Insert 1 Suppositor y into rectum 2 (two) times daily as needed for Rectal itching/pa in. [facility] ondansetron 4 mg disintegrat ing tablet 12-22 00:00: 00 02-16 00:00 :00 No [id number] 4mg Take 1 tablet by mouth every 8 (eight) hours as needed for Nausea and Vomiting (N/V). [facility] amoxicillin -clavulanat e 875-125 mg per tablet 12-22 00:00: 00 01-02 05:59 :00 No [id number] 1{tbl} Take 1 tablet by mouth every 12 (twelve) hours for 10 days. [facility] methylpredn isolone sod succ (SOLU-MEDRO L) injection 125 mg 2022-11 08:45: 00 10-27 20:44 :00 No 125mg 125 mg, Slow IV Push, ONCE, 1 dose, On Thu10/27/23 at 0245, STAT [facility] ipratropium -albuteroL (DUONEB) 0.5 mg-3 mg(2.5 mg base)/3 mL nebulizer solution 3 mL 2022-11 08:45: 00 10-27 20:44 :00 No 3mL 3 mL, Inhalation , ONCE NOW, 1 dose, On Thu10/27/23 at 0245, [facility] diazePAM (VALIUM) tablet 10 mg 2022-11 07:45: 00 10-27 19:44 :00 No 10mg 10 mg, Oral, ONCE, 1 dose, On Thu10/27/23 at 0145, [facility] levoFLOXaci n (LEVAQUIN) tablet 500 mg 2022-11 07:45: 00 10-27 19:44 :00 No 500mg 500 mg, Oral, ONCE, 1 dose, On Thu10/27/23 at 0145, [facility]
Re ason for Anti-Infec tive: Empiric Non-Surgic al Prophylaxi s
Durat ion of therapy: Once (ED) [facility] iopamidol (ISOVUE 370-500 mL) injection 70 mL 2021-11 18:30: 00 10-14 18:30 :00 No [id number] 70mL 70 mL, Intravenou s, ONCE, 1 dose, On Thu10/14/22 at 1230, Routine [facility] methylpredn isolone sod succ (SOLU-MEDRO L) injection 125 mg 2021-11 18:00: 00 Yes 125mg 125 mg, Intravenou s, Q6H, First dose on Thu10/14/22 at 1200, Until Discontinu ed, Routine [facility] furosemide (LASIX) injection 40 mg 2021-11 17:45: 00 10-14 16:39 :00 No 40mg 40 mg, IV Push, ONCE, 1 dose, On Thu10/14/22 at 1145, [facility] ipratropium -albuteroL (DUONEB) 0.5 mg-3 mg(2.5 mg base)/3 mL nebulizer solution 3 mL 2021-11 17:30: 00 10-14 16:41 :00 No 3mL 3 mL, Inhalation , ONCE, 1 dose, On Thu10/14/22 at 1130, Routine [facility] FENTanyl PF (SUBLIMAZE (PF)) injection 50 mcg 2021-11 16:45: 00 10-14 16:39 :00 No 50ug 50 mcg, Slow IV Push, ONCE, 1 dose, On Thu10/14/22 at 1045, Routine [facility] levoFLOXaci n 750 mg tablet 2021-11 2-06 00:00: 00 02-16 00:00 :00 No [id number] 750mg Take 1 tablet by mouth every 24 (twenty-fo ur) hours. [facility] HYDROcodone -acetaminop hen (NORCO) 10-325 mg tablet 1 tablet 03-12 12:15: 00 03-12 11:21 :00 No 1{tbl} 1 tablet, Oral, ONCE, 1 dose, On Thu03/12/22 at 0715, Routine [facility] HYDROcodone -acetaminop hen 10-325 mg tablet 03-12 00:00: 00 03-20 04:59 :00 No [id number] 1{tbl} Take 1 tablet by mouth every 6 (six) hours as needed for Pain (scale 7-10) for up to 7 days. Indication s: acute pain [facility] ipratropium -albuteroL (DUONEB) 0.5 mg-3 mg(2.5 mg base)/3 mL nebulizer solution 3 mL 02-20 13:00: 00 Yes 3mL 3 mL, Inhalation , QID, First dose on Thu02/20/22 at 0800, Until Discontinu ed, Routine [facility] methylPREDN ISolone sod succ (SOLU-MEDRO L (PF)) injection 40 mg 02-20 11:45: 00 02-20 10:43 :00 No 40mg 40 mg, Intravenou s, ONCE, 1 dose, On Thu02/20/22 at 0645, STAT [facility] foLIC acid (FOLATE) tablet 1 mg 02-20 11:45: 00 02-20 10:41 :00 No 1mg 1 mg, Oral, ONCE, 1 dose, On Thu02/20/22 at 0645, [facility] thiamine (VITAMIN B1) injection 100 mg 02-20 11:45: 00 02-20 10:43 :00 No 100mg 100 mg, Intravenou s, ONCE, 1 dose, On Thu02/20/22 at 0645, [facility] LORazepam (ATIVAN) injection 2 mg 02-20 11:45: 00 02-20 10:42 :00 No 2mg 2 mg, Slow IV Push, ONCE, 1 dose, On Kym 02/20/22 at 0645, STAT [facility] ipratropium -albuteroL (DUONEB) 0.5 mg-3 mg(2.5 mg base)/3 mL nebulizer solution 3 mL 02-20 10:30: 00 02-20 09:34 :00 No 3mL 3 mL, Inhalation , ONCE, 1 dose, On Kym 02/20/22 at 0530, Routine [facility] albuterol 90 mcg/actuati on inhaler 02-20 00:00: 00 Yes [id number] 2{puff} Inhale 2 Puffs every 4 (four) hours as needed for Wheezing or Shortness of Breath. [facility] triamterene -hydrochlor othiazid 37.5-25 mg tablet 02-20 00:00: 00 Yes [id number] 1{tbl} Take 1 tablet by mouth daily. [facility] chlordiazeP OXIDE 25 mg capsule 02-20 00:00: 00 Yes [id number] 25mg Take 1 capsule by mouth every 6 (six) hours as needed for Anxiety, Agitation, Heart Rate => 100 or Detox. [facility] predniSONE 10 mg tablet 02-20 00:00: 00 02-16 00:00 :00 No [id number] TAKE ONE TABLET BY MOUTH DAILY [facility] albuterol 2.5 mg /3 mL (0.083 %) nebulizer solution 02-20 00:00: 00 02-16 00:00 :00 No [id number] 2.5mg Inhale 3 mL every 4 (four) hours. May also nebulize one extra every 6 hours. [facility] budesonide- formoteroL 160-4.5 mcg/actuati on inhaler 02-20 00:00: 00 02-16 00:00 :00 No [id number] 2{puff} Inhale 2 Puffs 2 (two) times daily. [facility] albuterol 5 mg/mL nebulizer solution 07-16 14:02: 20 Yes 2.5mg Inhale 2.5 mg every 6 (six) hours as needed for Wheezing or Shortness of Breath. [facility] budesonide- formoterol 160-4.5 mcg/actuati on inhaler 07-16 00:00: 00 Yes 2{puff} Inhale 2 Puffs 2 (two) times daily. [facility] albuterol 2.5 mg /3 mL (0.083 %) nebulizer solution 07-16 00:00: 00 Yes 2.5mg Inhale 3 mL every 4 (four) hours as needed for Wheezing or Shortness of Breath. [facility] triamterene -hydrochlor othiazide 37.5-25 mg per capsule 03-26 16:32: 14 Yes 1{capsu le} Take 1 capsule by mouth every morning. [facility] amLODIPine 10 mg tablet 03-26 16:32: 14 Yes 10mg Take 10 mg by mouth at bedtime. [facility] gabapentin 100 mg capsule 03-26 16:32: 14 Yes 100mg Take 100 mg by mouth 2 (two) times daily as needed ([facility] pain). [facility] foLIC acid 1 mg tablet 03-26 16:32: 14 Yes 1mg Take 1 mg by mouth daily. [facility] budesonide- formoterol 160-4.5 mcg/actuati on inhaler 03-26 00:00: 00 02-16 00:00 :00 No 2{puff} Inhale 2 Puffs 2 (two) times daily. [facility] Immunizations Ordered Immunization Name Filled Immunization Name Date Status Comments Source SARS-COV-2 COVID-19 PFIZER VACCINE 2021-02-03 00:00:00 Completed [facility] SARS-COV-2 COVID-19 PFIZER VACCINE 2021-02-03 00:00:00 Completed [facility] SARS-COV-2 COVID-19 PFIZER VACCINE 2021-02-03 00:00:00 Completed [facility] SARS-COV-2 COVID-19 PFIZER VACCINE 2021-01-13 00:00:00 Completed [facility] SARS-COV-2 COVID-19 PFIZER VACCINE 2021-01-13 00:00:00 Completed [facility] SARS-COV-2 COVID-19 PFIZER VACCINE 2021-01-13 00:00:00 Completed [facility] Pneumococcal Polysaccharide, PPSV23 (PNEUMOVAX) 2018-03-26 00:00:00 Completed [facility] Influenza Virus Vaccine Quad IM 3+ YRS 2018-03-26 00:00:00 Completed [facility] Pneumococcal Polysaccharide, PPSV23 (PNEUMOVAX) 2018-03-26 00:00:00 Completed [facility] Influenza Virus Vaccine Quad IM 3+ YRS 2018-03-26 00:00:00 Completed [facility] Pneumococcal Polysaccharide, PPSV23 (PNEUMOVAX) 2018-03-26 00:00:00 Completed [facility] Influenza Virus Vaccine Quad IM 3+ YRS 2018-03-26 00:00:00 Completed [facility] Pneumococcal Polysaccharide, PPSV23 (PNEUMOVAX) Unknown Completed [facility] Influenza Virus Vaccine Quad IM 3+ YRS Unknown Completed [facility] SARS-COV-2 COVID-19 PFIZER VACCINE Unknown Completed [facility] SARS-COV-2 COVID-19 PFIZER VACCINE Unknown Completed [facility] Pneumococcal Polysaccharide, PPSV23 (PNEUMOVAX) Unknown Completed [facility] Influenza Virus Vaccine Quad IM 3+ YRS Unknown Completed [facility] SARS-COV-2 COVID-19 PFIZER VACCINE Unknown Completed [facility] SARS-COV-2 COVID-19 PFIZER VACCINE Unknown Completed [facility] Pneumococcal Polysaccharide, PPSV23 (PNEUMOVAX) Unknown Completed [facility] Influenza Virus Vaccine Quad IM 3+ YRS Unknown Completed [facility] SARS-COV-2 COVID-19 PFIZER VACCINE Unknown Completed [facility] SARS-COV-2 COVID-19 PFIZER VACCINE Unknown Completed [facility] Pneumococcal Polysaccharide, PPSV23 (PNEUMOVAX) Unknown Completed [facility] Influenza Virus Vaccine Quad IM 3+ YRS Unknown Completed [facility] SARS-COV-2 COVID-19 PFIZER VACCINE Unknown Completed [facility] SARS-COV-2 COVID-19 PFIZER VACCINE Unknown Completed [facility] Pneumococcal Polysaccharide, PPSV23 (PNEUMOVAX) Unknown Completed [facility] Influenza Virus Vaccine Quad IM 3+ YRS Unknown Completed [facility] SARS-COV-2 COVID-19 PFIZER VACCINE Unknown Completed [facility] SARS-COV-2 COVID-19 PFIZER VACCINE Unknown Completed [facility] Pneumococcal Polysaccharide, PPSV23 (PNEUMOVAX) Unknown Completed [facility] Influenza Virus Vaccine Quad IM 3+ YRS Unknown Completed [facility] SARS-COV-2 COVID-19 PFIZER VACCINE Unknown Completed [facility] SARS-COV-2 COVID-19 PFIZER VACCINE Unknown Completed [facility] Pneumococcal Polysaccharide, PPSV23 (PNEUMOVAX) Unknown Completed [facility] Influenza Virus Vaccine Quad IM 3+ YRS Unknown Completed [facility] SARS-COV-2 COVID-19 PFIZER VACCINE Unknown Completed [facility] SARS-COV-2 COVID-19 PFIZER VACCINE Unknown Completed [facility] Pneumococcal Polysaccharide, PPSV23 (PNEUMOVAX) Unknown Completed [facility] Influenza Virus Vaccine Quad IM 3+ YRS Unknown Completed [facility] SARS-COV-2 COVID-19 PFIZER VACCINE Unknown Completed [facility] SARS-COV-2 COVID-19 PFIZER VACCINE Unknown Completed [facility] Vital Signs Vital Name Observation Time Observation Value Comments S ource Systolic blood pressure 2024-02-18 01:57:00 134 mm[Hg] [facility] Diastolic blood pressure 2024-02-18 01:57:00 94 mm[Hg] [facility] Body height 2024-02-18 01:57:00 162.6 cm [facility] Body weight 2024-02-18 01:57:00 79.379 kg [facility] BMI 2024-02-18 01:57:00 30.04 kg/m2 [facility] Heart rate 2024-02-18 01:53:00 110 /min [facility] Body temperature 2024-02-18 01:53:00 36.61 Debbie [facility] Respiratory rate 2024-02-18 01:53:00 24 /min [facility] Oxygen saturation in Arterial blood by Pulse oximetry 2024-02-18 01:53:00 93 /min [facility] Systolic blood pressure 2024-02-09 01:54:05 150 mm[Hg] [facility] Diastolic blood pressure 2024-02-09 01:54:05 91 mm[Hg] [facility] Heart rate 2024-02-09 01:54:05 87 /min [facility] Respiratory rate 2024-02-09 01:54:05 17 /min [facility] Oxygen saturation in Arterial blood by Pulse oximetry 2024-02-09 01:54:05 93 /min [facility] Body temperature 2024-02-09 01:45:00 36.67 Edbbie [facility] Body height 2024-02-09 01:45:00 162.6 cm [facility] Body weight 2024-02-09 01:45:00 81.194 kg [facility] BMI 2024-02-09 01:45:00 30.73 kg/m2 [facility] Respiratory rate 2024-02-08 21:00:00 18 /min [facility] Oxygen saturation in Arterial blood by Pulse oximetry 2024-02-08 21:00:00 96 /min [facility] Systolic blood pressure 2024-02-08 20:27:00 164 mm[Hg] [facility] Diastolic blood pressure 2024-02-08 20:27:00 90 mm[Hg] [facility] Heart rate 2024-02-08 20:27:00 83 /min [facility] Body temperature 2024-02-08 19:12:00 36.83 Debbie [facility] Body height 2024-02-08 19:12:00 162.6 cm [facility] Body weight 2024-02-08 19:12:00 81.194 kg [facility] BMI 2024-02-08 19:12:00 30.73 kg/m2 [facility] Heart rate 2024-01-14 12:15:00 98 /min [facility] Body temperature 2024-01-14 12:15:00 36.56 Debbie [facility] Respiratory rate 2024-01-14 12:15:00 14 /min [facility] Oxygen saturation in Arterial blood by Pulse oximetry 2024-01-14 12:15:00 95 /min [facility] Systolic blood pressure 2024-01-14 12:00:00 140 mm[Hg] [facility] Diastolic blood pressure 2024-01-14 12:00:00 90 mm[Hg] [facility] Body height 2024-01-14 10:51:00 162.6 cm [facility] Body weight 2024-01-14 10:51:00 81.194 kg [facility] BMI 2024-01-14 10:51:00 30.73 kg/m2 [facility] Systolic blood pressure 2023-12-23 05:02:00 133 mm[Hg] [facility] Diastolic blood pressure 2023-12-23 05:02:00 84 mm[Hg] [facility] Heart rate 2023-12-23 05:02:00 78 /min [facility] Body temperature 2023-12-23 05:02:00 36.17 Debbie [facility] Respiratory rate 2023-12-23 05:02:00 17 /min [facility] Oxygen saturation in Arterial blood by Pulse oximetry 2023-12-23 05:02:00 91 /min [facility] Body height 2023-12-23 03:45:00 162.6 cm [facility] Body weight 2023-12-23 03:45:00 81.194 kg [facility] BMI 2023-12-23 03:45:00 30.73 kg/m2 [facility] Systolic blood pressure 2023-12-22 02:08:00 143 mm[Hg] [facility] Diastolic blood pressure 2023-12-22 02:08:00 92 mm[Hg] [facility] Heart rate 2023-12-22 02:08:00 81 /min [facility] Respiratory rate 2023-12-22 02:08:00 13 /min [facility] Oxygen saturation in Arterial blood by Pulse oximetry 2023-12-22 02:08:00 95 /min [facility] Body temperature 2023-12-22 01:33:00 36.72 Debbie [facility] Body height 2023-12-22 01:33:00 162.6 cm [facility] Body weight 2023-12-22 01:33:00 81.239 kg [facility] BMI 2023-12-22 01:33:00 30.74 kg/m2 [facility] Systolic blood pressure 2023-11-11 02:00:00 127 mm[Hg] [facility] Diastolic blood pressure 2023-11-11 02:00:00 87 mm[Hg] [facility] Heart rate 2023-11-11 02:00:00 79 /min [facility] Respiratory rate 2023-11-11 02:00:00 20 /min [facility] Oxygen saturation in Arterial blood by Pulse oximetry 2023-11-11 02:00:00 98 /min [facility] Body temperature 2023-11-11 01:31:00 36.28 Debbie [facility] Body height 2023-11-11 01:31:00 162.6 cm [facility] Body weight 2023-11-11 01:31:00 79.379 kg [facility] BMI 2023-11-11 01:31:00 30.04 kg/m2 [facility] Systolic blood pressure 2023-10-27 06:54:00 133 mm[Hg] [facility] Diastolic blood pressure 2023-10-27 06:54:00 94 mm[Hg] [facility] Heart rate 2023-10-27 06:54:00 95 /min [facility] Body temperature 2023-10-27 06:54:00 36.44 Debbie [facility] Respiratory rate 2023-10-27 06:54:00 22 /min [facility] Body height 2023-10-27 06:54:00 162.6 cm [facility] Body weight 2023-10-27 06:54:00 78.472 kg [facility] BMI 2023-10-27 06:54:00 29.70 kg/m2 [facility] Oxygen saturation in Arterial blood by Pulse oximetry 2023-10-27 06:54:00 94 /min [facility] Systolic blood pressure 2022-10-14 19:43:00 111 mm[Hg] [facility] Diastolic blood pressure 2022-10-14 19:43:00 74 mm[Hg] [facility] Heart rate 2022-10-14 19:43:00 98 /min [facility] Body temperature 2022-10-14 19:43:00 36.39 Debbie [facility] Respiratory rate 2022-10-14 19:43:00 22 /min [facility] Oxygen saturation in Arterial blood by Pulse oximetry 2022-10-14 19:43:00 94 /min [facility] Body height 2022-10-14 16:13:00 162.6 cm [facility] Body weight 2022-10-14 16:13:00 81.647 kg [facility] BMI 2022-10-14 16:13:00 30.90 kg/m2 [facility] Systolic blood pressure 2022-03-12 10:13:00 119 mm[Hg] [facility] Diastolic blood pressure 2022-03-12 10:13:00 75 mm[Hg] [facility] Heart rate 2022-03-12 10:13:00 105 /min [facility] Body temperature 2022-03-12 10:13:00 37.28 Debbie [facility] Respiratory rate 2022-03-12 10:13:00 19 /min [facility] Body height 2022-03-12 10:13:00 162.6 cm [facility] Body weight 2022-03-12 10:13:00 99.791 kg [facility] BMI 2022-03-12 10:13:00 37.76 kg/m2 [facility] Oxygen saturation in Arterial blood by Pulse oximetry 2022-03-12 10:13:00 96 /min [facility] Systolic blood pressure 2022-02-20 11:57:00 155 mm[Hg] [facility] Diastolic blood pressure 2022-02-20 11:57:00 88 mm[Hg] [facility] Heart rate 2022-02-20 11:57:00 105 /min [facility] Respiratory rate 2022-02-20 11:57:00 18 /min [facility] Oxygen saturation in Arterial blood by Pulse oximetry 2022-02-20 11:57:00 100 /min [facility] Body temperature 2022-02-20 09:25:00 37 Debbie [facility] Body height 2022-02-20 09:25:00 162.6 cm [facility] Body weight 2022-02-20 09:25:00 96.163 kg [facility] BMI 2022-02-20 09:25:00 36.39 kg/m2 [facility] Procedures Procedure Date / Time Performed Performing Clinician Source AC PANEL 20 + LACTIC ACID 2024-02-08 20:47:00 Christina Villarreal [facility] XR CHEST 1 VW 2024-02-08 19:47:00 Christina Villarreal [facility] URINALYSIS 2024-02-08 19:36:00 [facility] MAGNESIUM 2024-02-08 19:25:00 [facility] TROPONIN I 2024-02-08 19:25:00 [facility] COMP. METABOLIC PANEL ([id number]) 2024-02-08 19:25:00 Christina Villarreal [facility] ETHANOL 2024-02-08 19:25:00 [facility] CBC WITH DIFF 2024-02-08 19:25:00 Christina Villarreal [facility] N-TERMINAL PRO-BNP 2024-02-08 19:25:00 Christina Villarreal [facility] EKG-12 LEAD 2024-01-14 12:00:51 Jac Navarro [facility] LIPASE 2024-01-14 11:11:00 Jac Navarro [facility] TROPONIN I 2024-01-14 11:11:00 Jac Navarro [facility] COMP. METABOLIC PANEL ([id number]) 2024-01-14 11:11:00 Jac Navarro [facility] ETHANOL 2024-01-14 11:11:00 Jac Navarro [facility] CBC WITH DIFF 2024-01-14 11:11:00 [facility] N-TERMINAL PRO-BNP 2024-01-14 11:11:00 Jac Navarro [facility] COVID-19 (ID NOW RAPID TESTING) 2024-01-14 11:11:00 Jac Navarro [facility] CONSENT/REFUSAL FOR DIAGNOSIS AND TREATMENT 2024-01-14 10:44:32 Doctor Unassigned, Shorter [facility] LIPASE 2023-12-23 04:17:00 Tyler Rowe Un [facility] COMP. METABOLIC PANEL ([id number]) 2023-12-23 04:17:00 Tyler Rowe [facility] CBC WITH DIFF 2023-12-23 04:17:00 [facility] 2023-12-23 04:17:00 Tyler Rowe Un [facility] CONSENT/REFUSAL FOR DIAGNOSIS AND TREATMENT 2023-12-23 03:40:32 Doctor Unassigned, Shorter [facility] CT ABDOMEN PELVIS W CONTRAST 2023-12-22 02:31:05 Melinda Maciel [facility] LIPASE 2023-12-22 01:58:00 Melinda Maciel [facility] COMP. METABOLIC PANEL ([id number]) 2023-12-22 01:58:00 Melinda Maciel [facility] ETHANOL 2023-12-22 01:58:00 Melinda Maciel [facility] CBC WITH DIFF 2023-12-22 01:58:00 Melinda Maciel [facility] PROTHROMBIN TIME / INR 2023-12-22 01:58:00 Wali Maciel [facility] URINALYSIS 2023-12-22 01:58:00 [facility] CONSENT/REFUSAL FOR DIAGNOSIS AND TREATMENT 2023-12-22 01:19:14 Doctor Unassigned, Shorter [facility] NOTICE OF PRIVACY PRACTICES 2023-11-11 01:24:24 Doctor Unassigned, Shorter [facility] CONSENT/REFUSAL FOR DIAGNOSIS AND TREATMENT 2023-11-11 01:23:54 Doctor Unassigned, Shorter [facility] COVID-19 (ID NOW RAPID TESTING) 2023-10-27 07:09:00 Jac Navarro [facility] NOTICE OF PRIVACY PRACTICES 2023-10-27 06:49:48 Doctor Unassigned, Shorter [facility] CONSENT/REFUSAL FOR DIAGNOSIS AND TREATMENT 2023-10-27 06:47:40 Doctor Unassigned, Shorter [facility] CT ABDOMEN PELVIS W CONTRAST 2022-10-14 17:33:00 Melinda Maciel [facility] XR CHEST 1 VW 2022-10-14 17:10:37 Singer [facility] TROPONIN I 2022-10-14 16:37:00 Mel[facility] COMP. METABOLIC PANEL ([id number]) 2022-10-14 16:37[facility]00 [facility] 2022-10-14 16:37:00 Melinda Maciel [facility] PROTHROMBIN TIME / INR 2022-10-14 16:37[facility]00 [facility] 2022-10-14 16:37:00 [facility] N-TERMINAL PRO-BNP 2022-10-14 16:37:00 Melinda Maciel [facility] CONSENT/REFUSAL FOR DIAGNOSIS AND TREATMENT 2022-10-14 15:56:36 Doctor Unassigned, Shorter [facility] CONSENT/REFUSAL FOR DIAGNOSIS AND TREATMENT 2022-03-12 10:03:12 Doctor Unassigned, Shorter [facility] XR CHEST 1 VW 2022-02-20 09:59:00 Christy Holliday [facility] LIPASE 2022-02-20 09:30:00 Christy Holliday [facility] TROPONIN I 2022-02-20 09:30:00 Christy Holliday [facility] COMP. METABOLIC PANEL ([id number]) 2022-02-20 09:30:00 Christy Holliday [facility] CBC WITH DIFF 2022-02-20 09:30:00 Christy Holliday [facility] N-TERMINAL PRO-BNP 2022-02-20 09:30:00 Christy Holliday [facility] NOTICE OF PRIVACY PRACTICES 2022-02-20 09:15:02 Doctor Unassigned, Shorter [facility] CONSENT/REFUSAL FOR DIAGNOSIS AND TREATMENT 2022-02-20 09:14:47 Doctor Unassigned, Shorter [facility] Encounters Start Date/Time End Date/Time Encounter Type Admission Type Attending [facility] Care Department Encounter ID Source 2024-04-14 16:30:00 2024-04-14 16:30:00 Outpatient DARIEN LOBO [id number] [facility] 2024-04-12 11:00:00 2024-04-12 11:00:00 Outpatient MINNA ORTA [id number] [facility] 2024-04-12 11:00:00 2024-04-12 11:00:00 Outpatient WENDY BROWNLEE [id number] [facility]-12 00:00:00 2024-04-12 00:00:00 Outpatient SHARATH HALEY [id number] [facility] 2024-04-05 11:30:00 2024-04-05 11:30:00 Outpatient DARIEN LOBO [id number] [facility] 2024-04-05 00:00:00 2024-04-05 00:00:00 Outpatient DARIEN LOBO [id number] [facility] 2024-03-28 00:00:00 2024-03-28 00:00:00 Outpatient DARIEN LOBO [id number] [facility] 2024-03-15 08:30:00 2024-03-15 08:30:00 Outpatient WENDY BROWNLEE MARIA ELENA [id number] [facility] 2024-02-17 20:58:00 2024-02-17 21:44:00 Emergency X PEG CAMP [facility] [id number] [facility] 2024-02-17 20:58:00 2024-02-17 21:44:00 Emergency Peg Camp [facility] 1.840.114 350.1.13.10 4.2.7.2.686 [id number] 084 [id number] [facility] 2024-02-09 13:10:00 2024-02-09 15:14:00 Emergency URSULA SANTOS [facility] [id number] [facility] 2024-02-08 20:38:00 2024-02-08 21:40:00 Emergency X DEMETRIA DAVENPORT [facility] [id number] [facility] 2024-02-08 20:38:00 2024-02-08 21:40:00 Emergency AuDemetria breen [facility] 1.2.840.114 350.1.13.10 4.2.7.2.686 [id number] [facility] 2024-02-08 14:08:00 2024-02-08 17:06:00 Emergency Christina Villarreal [facility] 1.2.840.114 350.1.13.10 4.2.7.2.686 [id number] 084 [id number] [facility] 2024-01-14 04:46:00 2024-01-14 06:23:00 Emergency X JAC NAVARRO [facility] [id number] [facility] 2024-01-14 04:46:00 2024-01-14 06:23:00 Emergency Jac Navarro [facility] 1.2.840.114 350.1.13.10 4.2.7.2.686 [id number] 084 [id number] [facility] 2023-12-22 21:51:00 2023-12-22 23:13:00 Emergency X TYLER ROWE [facility] [id number] [facility] 2023-12-22 21:51:00 2023-12-22 23:13:00 Emergency Tyler Rowe [facility] 1.2.840.114 350.1.13.10 4.2.7.2.686 [id number] 084 [id number] [facility] 2023-12-21 19:36:00 2023-12-21 21:52:00 Emergency X MELINDA MACIEL [facility] [id number] [facility] 2023-12-21 19:36:00 2023-12-21 21:52:00 Emergency Melinda Maciel [facility] 1.2.840.114 350.1.13.10 4.2.7.2.686 [id number] [id number] [facility] 2023-11-10 19:29:00 2023-11-10 20:14:00 Emergency X CHRISTY HOLLIDAY [facility] [id number] [facility] 2023-11-10 19:29:00 2023-11-10 20:14:00 Emergency Christy Holliday [facility] 1.2.840.114 350.1.13.10 4.2.7.2.686 [id number] 084 [id number] [facility] 2023-10-27 00:49:00 2023-10-27 01:41:00 Emergency X JAC NAVARRO [facility] [id number] [facility] 2023-10-27 00:49:00 2023-10-27 01:41:00 Emergency Jac Navarro [facility] 1..840.114 350.1.13.10 4.2.7.2.686 [id number] 084 [id number] [facility] 2023-07-15 00:00:00 2023-07-15 00:00:00 Outpatient DARIEN LOBO [id number] [facility] 2023-06-16 11:30:00 2023-06-16 11:30:00 Outpatient DARIEN LOBO [id number] [facility] 2023-05-18 00:00:00 2023-05-18 00:00:00 Outpatient GROUPMARIA ELENA [id number] [facility] 2022-10-14 10:07:00 2022-10-14 14:39:00 Emergency X MELINDA MACIEL [facility] [id number] [facility] 2022-10-14 10:07:00 2022-10-14 14:39:00 Emergency MacielMelinda [facility] ..840.114 350.1.13.10 4.2.7.2.686 [id number] [id number] [facility] 2022-03-12 05:15:00 2022-03-12 06:41:00 Emergency X CHRISTY HOLLIDAY [facility] [id number] [facility] 2022-03-12 05:15:00 2022-03-12 06:41:00 Emergency Christy Holliday [facility] ..840.114 350.1.13.10 4.2.7.2.686 [id number] 084 [id number] [facility] 2022-02-20 04:17:00 2022-02-20 07:16:00 Emergency X CHRISTY HOLLIDAY [facility] [id number] [facility] 2022-02-20 04:17:00 2022-02-20 07:16:00 Emergency Christy Holliday [facility] 1.2.840.114 350.1.13.10 4.2.7.2.686 [id number] 084 [id number] [facility] 2021-02-03 11:10:00 2021-02-03 11:10:00 Outpatient DENISE CAMPO [facility] [id number] [facility] 2021-01-13 11:20:00 2021-01-13 11:20:00 Outpatient [facility] [id number] [facility] 2020-11-10 08:20:00 2020-11-10 08:20:00 Outpatient KARLEY ESTRADA [facility] [id number] [facility] Results Test Description Test Time Test Comments Results Result Co mments Source [facility] + Lactic [id number] 20:52:47* Test Item Value Reference Range Interpretation Comme nts PH (test code = 2) 7.39 7.35-7.45 PCO2 (test code = 9262279246) 42 35-45 PO2 (test code = 6745183257) 76 80-100 L HCO3 (test code = 9148684296) 25 22-26 BE (test code = 2621217906) -0.1 -3.0-3.0 THB (test code = 3691937065) 14.3 g/dL 13.5-18.0 %O2HB (test code = 7765366952) 85.8 % 94.0-99.0 L %COHB ART (test code = 0009050909) 9.0 % 0.0-1.5 H %METHB ART (test code = 9529484328) 0.3 % 0.4-1.5 L VOL%O2 ART (test code = 5978336513) 17.3 % 15.0-23.0 NA (test code = 8508015493) 140 mmol/L 135-145 K+ (test code = 2580025204) 4.1 mmol/L 3.5-5.0 AC CA IONZ (test code = 7698543719) 4.50 mg/dL 4.50-5.30 GLUCOSE (test code = 7446420722) 105 mg/dL 70-110 LACTIC ACID (test code = 0362963541) 2.60 mmol/L 0.50-2.20 H Lab Interpretation (test cod e = 58893-4) Abnormal [facility] [id number] 20:34:14* Test Item Value Reference Range Interpretation Comme nts TROPONIN I (test code = 7108748769) 0.008 ng/mL <=0.034 LOUISE (test code = [...] of biotin. Lab Interpretation (test code = 76826-3) Normal [facility] Axq-[id number] 20:31:35* Test Item Value Reference Range Interpretation Comme nts NT-proBNP (test code = 57664-1) 188 pg/mL <=125 LOUISE (test code = LOUISE) Result Indeterminate-Consid er causes of NT-proBNP elevation other than Heart failure such as acute coronary syndrome, pulmonary embolism, pulmonary hypertension, sepsis, stroke, and renal dysfunction. Lab Interpretation (test code = 38834-8) Abnormal [facility] Metabolic Panel (78194)2024-02-08 20:21:10* Test Item Value Reference Range Interpretation Comme nts NA (test code = 3042436178) 135 mmol/L 135-145 K (test code = 8921692627) 4.5 mmol/L 3.5-5.0 CL (test code = 2333669811) 100 mmol/L 98-108 CO2 TOTAL (test code = 5470621486) 22 mmol/L 23-31 L AGAP (test code = 4988884205) 13 2-16 BUN (test code = 7500581401) 8 mg/dL 7-23 GLUCOSE (test code = 0013929918) 97 mg/dL 70-110 CREATININE (test code = 2160-0) 0.65 mg/dL 0.60-1.25 TOTAL BILI (test code = 6226112872) 0.4 mg/dL 0.1-1.1 CALCIUM (test code = 8642164594) 9.4 mg/dL 8.6-10.6 T PROTEIN (test code = 0712434493) 8.2 g/dL 6.3-8.2 ALBUMIN (test code = 3123004270) 4.7 g/dL 3.5-5.0 ALK PHOS (test code = 1458131954) 76 U/L 34-122 ALTv (test code = 1742-6) 33 U/L 5-50 AST(SGOT) (test code = 2477529552) 54 U/L 13-40 H eGFR (test code = 99987-4) 111.3 mL/min/1.73m2 CKD-EPI eGFR (2020). Assuming creatinine has been stable day-to-day for at least three months, the eGFR indicates Category G1 (>= 90 mL/min/1.73 m2) Lab Interpretation (test code = 76188-2) Abnormal [facility] Hospital[facility]esium2024-04-01 20:21:10* Test Item Value Reference Range Interpretation Comme nts MAGNESIUM (test code = 9502886183) 2.1 mg/dL 1.7-2.4 Lab Interpretation (test cod e = 92454-9) Normal [facility] 1 [id number] 20:07:21EXAM: XR CHEST 1 VW COMPARISON: 01/14/2024 HISTORY: sob FINDINGS: Lungs: Slightly hyperexpanded lungswith subtle progression of interstitialprominence. Trace pleural effusions could be present. Heart/Mediastinum: Stable cardiomegaly. Bones and soft tissues: No osseous abnormality is visualized.[facility] Cbc with [id number] 20:04:26* Test Item Value Reference Range Interpretation [...] 33.8 g/dL 31.2-35.0 RDW-SD (test code = 40894-0) 50.5 fL 38.5-51.6 RDW-CV (test code = 788-0) 14.3 % 12.1-15.4 PLT (test code = 777-3) 206 150-328 MPV (test code = 95660-3) 9.1 fL 9.8-13.0 L NRBC/100 WBC (test code = 0991843166) 0.0 0.0-10.0 NRBC x10^3 (test code = 9344283855) See_Comment [Automated [employer] ge] The system which generated this result transmitted reference range: 10*3/?L. The reference range was not used to interpret this result as normal/abnormal. GRAN MAT (NEUT) % (test code = 770-8) 81.0 % IMM GRAN % (test code = 9848924405) 1.20 % LYMPH % (test code = 736-9) 10.9 % MONO % (test code = 5905-5) 6.8 % EOS % (test code = 713-8) 0.0 % BASO % (test code = 706-2) 0.1 % GRAN MAT x10^3(ANC) (test code = 8246479534) 9.31 10*3/uL 1.99-6.95 H IMM GRAN x10^3 (test code = 7670657089) 0.14 10*3/uL 0.00-0.06 H LYMPH x10^3 (test code = 731-0) 1.25 10*3/uL 1.09-3.23 MONO x10^3 (test code = 742-7) 0.78 10*3/uL 0.36-1.02 EOS x10^3 (test code = 711-2) 0.06-0.53 L BASO x10^3 (test code = 704-7) 0.01-0.09 Lab Interpretation (test code = 80469-3) Abnormal [facility] METABOLIC PANEL (39630)2023-12-23 04:53:26* Test Item Value Reference Range Interpretation Comme nts NA (test code = 7847917282) 135 mmol/L 135-145 K (test code = 2039852223) 3.2 mmol/L 3.5-5.0 L CL (test code = 7071669002) 104 mmol/L 98-108 CO2 TOTAL (test code = 3422862990) 23 mmol/L 23-31 AGAP (test code = 1050432081) 8 2-16 BUN (test code = 3025993727) 11 mg/dL 7-23 GLUCOSE (test code = 7458292963) 82 mg/dL 70-110 CREATININE (test code = 2160-0) 0.64 mg/dL 0.60-1.25 TOTAL BILI (test code = 4088463442) 0.5 mg/dL 0.1-1.1 CALCIUM (test code = 3268343028) 8.8 mg/dL 8.6-10.6 T PROTEIN (test code = 4620404528) 6.7 g/dL 6.3-8.2 ALBUMIN (test code = 6503294626) 4.1 g/dL 3.5-5.0 ALK PHOS (test code = 6922937547) 46 U/L 34-122 ALTv (test code = 1742-6) 21 U/L 5-50 AST(SGOT) (test code = 1174272806) 43 U/L 13-40 H eGFR (test code = 45714-0) 111.8 mL/min/1.73m2 CKD-EPI eGFR (2020). Assuming creatinine has been stable day-to-day for at least three months, the eGFR indicates Category G1 (>= 90 mL/min/1.73 m2) Lab Interpretation (test code = 80729-4) Abnormal [facility]2024-[facility]-14 04:53:26* Test Item Value Reference Range Interpretation Comme nts LIPASE (test code = 9225896531) 105 U/L 0-220 Lab Interpretation (test cod e = 56921-0) Normal [facility] HospitalCBC WITH [id number] 04:34:24* Test Item Value Reference Range Interpretation [...] 33.0 g/dL 31.2-35.0 RDW-SD (test code = 40312-0) 50.9 fL 38.5-51.6 RDW-CV (test code = 788-0) 13.7 % 12.1-15.4 PLT (test code = 777-3) 232 150-328 MPV (test code = 51913-2) 8.7 fL 9.8-13.0 L NRBC/100 WBC (test code = 0698345688) 0.0 0.0-10.0 NRBC x10^3 (test code = 7703357603) See_Comment [Automated messa ge] The system which generated this result transmitted reference range: 10*3/?L. The reference range was not used to interpret this result as normal/abnormal. GRAN MAT (NEUT) % (test code = 770-8) 58.8 % IMM GRAN % (test code = 0528390352) 0.90 % LYMPH % (test code = 736-9) 27.8 % MONO % (test code = 5905-5) 10.5 % EOS % (test code = 713-8) 1.3 % BASO % (test code = 706-2) 0.7 % GRAN MAT x10^3(ANC) (test code = 1284379214) 5.68 10*3/uL 1.99-6.95 IMM GRAN x10^3 (test code = 2087014164) 0.09 10*3/uL 0.00-0.06 H LYMPH x10^3 (test code = 731-0) 2.69 10*3/uL 1.09-3.23 MONO x10^3 (test code = 742-7) 1.02 10*3/uL 0.36-1.02 EOS x10^3 (test code = 711-2) 0.13 10*3/uL 0.06-0.53 BASO x10^3 (test code = 704-7) 0.07 10*3/uL 0.01-0.09 Lab Interpretation (test code = 29392-0) Abnormal [facility] PEL[facility] W [id number] 03:32:43Exam: CT Abdomen and Pelvis With Contrast, [...] acute osseous abnormality.Soft tissues: Small fat-containing inguinal hernias.[facility] HospitalEthanol2024-02-13 02:32:24* Test Item Value Reference Range Interpretation Comme nts ALCOHOL (test code = 9517131636) 117 mg/dL LOUISE (test code = LOUISE) <10 Ykxivcgq83-723 Toxic>100 Depression of [employer]>400 Fatalities Reported [facility]Comp. Metabolic Panel (12853)2023-12-22 02:31:43* Test Item Value Reference Range Interpretation Comme nts NA (test code = 4269817547) 133 mmol/L 135-145 L K (test code = 0739052098) 3.3 mmol/L 3.5-5.0 L CL (test code = 7876434918) 102 mmol/L 98-108 CO2 TOTAL (test code = 0750930474) 25 mmol/L 23-31 AGAP (test code = 1054195300) 6 2-16 BUN (test code = 3876911259) 11 mg/dL 7-23 GLUCOSE (test code = 9572675621) 75 mg/dL 70-110 CREATININE (test code = 7053276829) 0.51 mg/dL 0.60-1.25 L TOTAL BILI (test code = 4250833803) 0.5 mg/dL 0.1-1.1 CALCIUM (test code = 3610654484) 8.9 mg/dL 8.6-10.6 T PROTEIN (test code = 0181360003) 7.2 g/dL 6.3-8.2 ALBUMIN (test code = 0724509026) 4.5 g/dL 3.5-5.0 ALK PHOS (test code = 1043885995) 46 U/L 34-122 ALTv (test code = 1742-6) 15 U/L 5-50 AST(SGOT) (test code = 4166932877) 24 U/L 13-40 eGFR (test code = 42515-3) 119.7 mL/min/1.73m2 CKD-EPI eGFR (2020). Assuming creatinine has been stable day-to-day for at least three months, the eGFR indicates Category G1 (>= 90 mL/min/1.73 m2) Lab Interpretation (test code = 82305-7) [facility]:43* Test Item Value Reference Range Interpretation Comme nts LIPASE (test code = 7044789757) 121 U/L 0-220 Lab Interpretation (test cod e = 17306-0) Normal [facility]Proth[facility] / [id number] 02:21:02* Test Item Value Reference Range Interpretation Comme nts PROTIME PATIENT (test code = 5964-2) 10.5 10.1-12.6 INR (test code = 6301-6) 0.9 Normal INR <1.1; Warfarin Therapeutic range 2.0 to 3.0 or 2.5 to 3.5, depending upon the indications. Lab Interpretation (test code = 95147-8) Normal [facility] HospitalCbc with [id number] 02:14:04* Test Item Value Reference Range Interpretation [...] 34.0 g/dL 31.2-35.0 RDW-SD (test code = 73512-9) 49.1 fL 38.5-51.6 RDW-CV (test code = 788-0) 13.5 % 12.1-15.4 PLT (test code = 777-3) 260 150-328 MPV (test code = 52229-7) 8.7 fL 9.8-13.0 L NRBC/100 WBC (test code = 2345187682) 0.0 0.0-10.0 NRBC x10^3 (test code = 8758224514) See_Comment [Automated messa ge] The system which generated this result transmitted reference range: 10*3/?L. The reference range was not used to interpret this result as normal/abnormal. GRAN MAT (NEUT) % (test code = 770-8) 64.3 % IMM GRAN % (test code = 6073722360) 0.90 % LYMPH % (test code = 736-9) 24.2 % MONO % (test code = 5905-5) 9.1 % EOS % (test code = 713-8) 0.7 % BASO % (test code = 706-2) 0.8 % GRAN MAT x10^3(ANC) (test code = 6212786786) 8.73 10*3/uL 1.99-6.95 H IMM GRAN x10^3 (test code = 0981548603) 0.12 10*3/uL 0.00-0.06 H LYMPH x10^3 (test code = 731-0) 3.28 10*3/uL 1.09-3.23 H MONO x10^3 (test code = 742-7) 1.23 10*3/uL 0.36-1.02 H EOS x10^3 (test code = 711-2) 0.10 10*3/uL 0.06-0.53 BASO x10^3 (test code = 704-7) 0.11 10*3/uL 0.01-0.09 H Lab Interpretation (test code = 02560-7) Abnormal [facility] H7403-16-66 10:16:22* Test Item Value Reference Range Interpretation Comments TROPONIN I (test code = 3554972162) 0.007 ng/mL See_Comment [Automated message] The system [...] of biotin. Lab Interpretation (test code = 37370-5) Normal [facility]N-[facility]MINAL FEE-UPI2950-51-14 10:13:01* Test Item Value Reference Range Interpretation Comme nts NT-proBNP (test code = 7779588374) 52 pg/mL See_Comment [Automated message] The system which generated this result transmitted reference range: <=125. The reference range was not used to interpret this result as normal/abnormal. LOUISE (test code = LOUISE) Biotin has been reported to cause a negative bias, interpret results relative to patient's use of biotin. Lab Interpretation (test code = 00068-6) Normal [facility]COMP[facility] METABOLIC PANEL (37287)2022-02-20 10:04:02* Test Item Value Reference Range Interpretation Comme nts NA (test code = 1251506524) 137 mmol/L 135-145 K (test code = 6143519935) 3.6 mmol/L 3.5-5.0 CL (test code = 0251158037) 99 mmol/L 98-108 CO2 TOTAL (test code = 1256028809) 25 mmol/L 23-31 AGAP (test code = 8839166657) 2-16 BUN (test code = 8006437106) 6 mg/dL 7-23 L GLUCOSE (test code = 4948239392) 88 mg/dL 70-110 CREATININE (test code = 1670268583) 0.55 mg/dL 0.60-1.25 L TOTAL BILI (test code = 0299012889) 0.8 mg/dL 0.1-1.1 CALCIUM (test code = 5897266510) 8.9 mg/dL 8.6-10.6 T PROTEIN (test code = 4679263040) 7.5 g/dL 6.3-8.2 ALBUMIN (test code = 8090415571) 4.8 g/dL 3.5-5.0 ALK PHOS (test code = 1640335302) 113 U/L 34-122 ALTv (test code = 1742-6) 84 U/L 5-50 H AST(SGOT) (test code = 5904789908) 107 U/L 13-40 H eGFR (test code = 2746708549) mL/min/1.73m2 LOUISE (test code = LOUISE) Association [...] imaging tests). Lab Interpretation (test code = 85939-7) Abnormal [facility] HospitalLIPASE, OYKIE0736-93-65 10:03:21* Test Item Value Reference Range Interpretation Comme nts LIPASE (test code = 2274614230) 193 U/L 0-220 Lab Interpretation (test cod e = 25016-5) Normal [facility] HospitalCB WITH CSID1798-86-98 09:39:17* Test Item Value Reference Range Interpretation Comme nts WBC (test code = 6690-2) See_Comment [Automated [employer]] The system which generated this result transmitted [...] g/dL 31.2-35.0 H RDW-SD (test code = 23655-0) 44.4 fL 38.5-51.6 RDW-CV (test code = 788-0) 11.9 % 12.1-15.4 L PLT (test code = 777-3) See_Comment [Automated [employer] ge] The system which generated this result transmitted reference range: 150 - 328 10*3/?L. The reference range was not used to interpret this result as normal/abnormal. MPV (test code = 69656-5) 9.2 fL 9.8-13.0 L NRBC/100 WBC (test code = 9130893506) See_Comment [Automated [employer] ssage] The system which generated this result transmitted reference range: 0.0 - 10.0 /100 WBCs. The reference range was not used to interpret this result as normal/abnormal. NRBC x10^3 (test code = 4364531111) <0.01 See_Comment [Automated messa ge] The system which generated this result transmitted reference range: 10*3/?L. The reference range was not used to interpret this result as normal/abnormal. GRAN MAT (NEUT) % (test code = 770-8) 69.9 % IMM GRAN % (test code = 2704231716) 1.50 % LYMPH % (test code = 736-9) 18.9 % MONO % (test code = 5905-5) 7.0 % EOS % (test code = 713-8) 1.9 % BASO % (test code = 706-2) 0.8 % GRAN MAT x10^3(ANC) (test code = 4706154274) 7.15 10*3/uL 1.99-6.95 H IMM GRAN x10^3 (test code = 1531983257) 0.15 10*3/uL 0.00-0.06 H LYMPH x10^3 (test code = 731-0) 1.93 10*3/uL 1.09-3.23 MONO x10^3 (test code = 742-7) 0.72 10*3/uL 0.36-1.02 EOS x10^3 (test code = 711-2) 0.19 10*3/uL 0.06-0.53 BASO x10^3 (test code = 704-7) 0.08 10*3/uL 0.01-0.09 Lab Interpretation (test code = 70261-6) Abnormal [facility] Notes Date/Time Note Provider Source 2024-02-17 21:43:52 8120-38-09Y88:43:52F ormatting of this note might be different from the original.No answer in lobby. 07257-8Plifpqoib department OpokIF2360-96-81W19:44:07[facility] NoteTXT1.2.840.387390.1.13.104.2.7 .2.287848|[id number] for patient bnds72052-6WeqjIWDCXJRTRQZHczatugk d C-CDA narrative kdxi076838309Kdzxvg J Hoot RN[address] KmdtCzuzseinyNhupwlrcqELYE62748921 25NLUCSWDXSFJVVPFEQEJMPG7389-09-90 T21:44:071.2.840.979650.1.72.3.15| 1.2.840.500437.1.13.104.2.7.2.7278 79_[id number] Angy Turner RN [facility] 2024-02-17 21:42:10 9008-07-91F28:42:10F ormatting of this note might be different from the original.Pt's blood pressure cuff and pulse ox found lying on chair. Called for patient in lobby 2 times, no answer. No one in lobby. 03084-2Eptxwdnde department HzzoZB4109-02-25U72:44:10[facility] department NoteTXT1.2.840.677142.1.13.104.2.7 .2.678317|[id number] for patient tvcv40435-7VyyzYZAOTYDZQEIBysgjtcs d C-CDA narrative pfut653502403Gnopi A. Campbell [address]TXTX[address] 08LEVLWMRVHEAOLNBZVCRDFI3195-50-66 T21:44:101.2.840.634268.1.72.3.15| 1.2.840.008152.1.13.104.2.7.2.7278 79_[id number] Sierra Samaniego RN [facility] 2024-02-17 21:41:09 3767-24-54G71:41:09F ormatting of this note might be different from the original.Pt not in lobby or in room. No answer in lobby. 56920-2Pjkvyoohy department DeasCQ8448-89-59R81:41:40[facility] department NoteTXT1.2.840.192768.1.13.104.2.7 .2.728245|[id number] for patient qkzj43500-1XwvvGVZATBFJXYGYodnzqgi d C-CDA narrative text[address]TXTX[address]75 20KHBSAQSFTRMMIFAGDSAEHP1938-72-57 T21:41:401.2.840.320323.1.72.3.15| 1.2.840.040902.1.13.104.2.7.2.7278 79_[id number] [facility] 2024-02-17 21:14:29 2610-67-30O93:14:29F ormatting of this note might be different from the original.Pt not in FT01-01 and no answer in lobby. 54574-6Pidvsdvta department VnteQL8098-64-91S54:15:32[facility] NoteTXT1.2.840.808571.1.13.104.2.7 .2.705050|[id number] for patient spdi62742-9DlktYFGWXJSSDBLFdoyypug d C-CDA narrative text[address]onGalvestonTXTX[address] 82BJGDRTDOOCIWZMREPALOHP2836-05-83 T21:15:321.2.840.414114.1.72.3.15| 1.2.840.235335.1.13.104.2.7.2.7278 79_[id number] [facility] 2024-02-17 20:48:50 2180-25-60Z55:48:50F ormatting of this note might be different from the original.Pt arrives ambulatory to ED c/o SOB, right upper abdominal pain, and left leg and hip pain. Pt states that he has been on prednisone for about 5 yrs which had given him osteoporosis which is causing his leg pain. Reports hx of COPD, o2 is generally @ 91 he says. 26740-8Errksflwd department Triage weerFE3246-96-74I31:53:54[facility] Triage noteTXT1.2.840.189247.1.13.104.2.7 .2.624747|[id number] for patient mtrl89094-5Uiymtfooz department NoteLNNARRATIVEFormatted C-CDA narrative kcyv415783567Hpxjzo L Dl RN[address]TXTX[address]75 13BGPAETMDXPCAFYHXJTRIZO5010-03-96 T20:53:541.2.840.639919.1.72.3.15| 1.2.840.916276.1.13.104.2.7.2.7278 79_[id number] Leah Quarles Dl MACHUCA [facility] 2024-02-08 21:37:56 8385-37-27Y42:37:56F ormatting of this note might be different from the original.Pt left AMA 77259-8Mcpqvugsm department HglkIE5893-76-20K63:38:11[facility] department NoteTXT1.2.840.228513.1.13.104.2.7 .2.065672|[id number] for patient efdd01901-5CjkxLPEJKDTJUEZPzrjsenw d C-CDA narrative suio427142101Uhayu M Martinez RN[address]TXTX[address] 61IZRJZPOVPFMNTCZKTCPJSH2222-60-07 T21:38:111.2.840.339124.1.72.3.15| 1.2.840.794397.1.13.104.2.7.2.7278 79_[id number] Kylie Foster RN [facility] 2024-02-08 21:32:00 6396-69-10C75:32:00F ormatting of this note might be different [...] ambulatory with steady gait, [place] 25483-2Opsasixhk department VrtxNJ9350-60-63R66:40:32[facility] NoteTXT1.2.840.887228.1.13.104.2.7 .2.698747|9396483292THVnmqqxcao for patient cnef74249-2JelyNHNYTTRALUWPalanknb d C-CDA narrative text[address]TXTX[address] 00WIUCTXSZQHFWBLZQLODFJP1658-16-40 T21:40:321.2.840.175256.1.72.3.15| 1.2.840.973495.1.13.104.2.7.2.7278 79_[id number] [facility] 2024-02-08 20:54:38 5625-20-57Q51:54:38F ormatting of this note might be different from the original.Pt states he uses O2 at home, portable O2 is broken [address]879-5Cehfwmuvu[address] [place] [address] EseoQM5314-44-04C39:55:13[facility] department NoteTXT1.2.840.970125.1.13.104.2.7 .2.456414|[id number] for patient rutz16017-7BcgnENHPLMWKPTTWslzaeti d C-CDA narrative text[address]TXTX[address] 72UFNGPETMEAIOJNMQTUJLAQ6033-53-61 T20:55:131.2.840.330911.1.72.3.15| 1.2.840.008203.1.13.104.2.7.2.7278 79_[id number] [facility] 2024-02-08 20:51:11 5524-94-22W81:51:11F ormatting of this note might be different from the original.Pt ambulates with cane 15523-9Dviaiisar department ApbfJY4860-99-59R24:51:26[facility] NoteTXT1.2.840.046154.1.13.104.2.7 .2.382660|[id number] for patient pgnq74169-9NtprTZSDQCFHPYGIgmqorkp d C-CDA narrative text[address] JuiyVsbceklnaEupffiwntNIOF08106861 25VYUBYHBQYCWXFCWPEGVEIJ8961-09-87 T20:51:261.2.840.750668.1.72.3.15| 1.2.840.229434.1.13.104.2.7.2.7278 79_[id number] [facility] 2024-02-08 20:43:13 5849-34-06L34:43:13F ormatting of this note might be different from the original.CC: Pt arrives SOB after leaving [place] earlier in the shift. He reports he [...] 3 BC powders and drank 3 beers." 69973-1Qbdpdyrok department Triage iwzxTY8948-03-20O32:48:36[facility] Triage noteTXT1.2.840.049956.1.13.104.2.7 .2.573111|7872102499QLDiheuygko for patient agdu89420-4Fnwkiylay department NoteLNNARRATIVEFormatted C-CDA narrative irgh108782000Gjpkdl Sarika King RN[address]TXTX[address] 70ZIEIDDKZZLNLKDLFHVESJP1880-18-59 T20:48:361.2.840.198197.1.72.3.15| 1.2.840.535199.1.13.104.2.7.2.7278 79_[id number] Leah Sarika King RN [facility] 2024-02-08 17:04:05 6641-60-70F67:04:05F ormatting of this note might be different [...] of the department with a steady gait. 26793-1Emtbqitbo department NqkcIT0440-24-98O61:05:22[facility] department NoteTXT1.2.840.622411.1.13.104.2.7 .2.844591|[id number] for patient njrc18580-3WsqcUZJEEDSMFMNYwsgebzd d C-CDA narrative pdft225484669Xqvj M Hayes RN[address]TXTX[address] 00XBXXRUZIQFIHMROMCQKWUM5797-24-28 T17:05:221.2.840.981934.1.72.3.15| 1.2.840.288073.1.13.104.2.7.2.7278 79_[id number] Allison Zhang RN [facility] 2024-02-08 14:23:02 3799-35-79T18:23:02F ormatting of this note might be different from the original.Pt ambulates with a cane 87594-8Ikbvzccjt department TcrfHM8913-12-25Z54:23:12[facility] NoteTXT1.2.840.691692.1.13.104.2.7 .2.116411|8612452572NFRwkezoqao for patient yltq92630-1JlpfQLIWXWOJXEVHnfrgbbr d C-CDA narrative hqiv521873760FjtbeKylie Foster RN[address] SjqpEzikjkaofZqmmnrtofDSZC56804450 44VCBOXSJJTGWQTUDJVFDVBT3916-87-41 T14:23:121.2.840.876308.1.72.3.15| 1.2.840.128606.1.13.104.2.7.2.7278 79_[id number] Kylie Foster RN [facility] 2024-02-08 14:13:15 3421-75-29S66:13:15F ormatting of this note might be different [...] only thing that helps." Face is flushed. 91123-9Wmnzchjcx department Triage hczeUU9357-60-41G84:17:26[facility] Triage noteTXT1.2.840.918602.1.13.104.2.7 .2.265089|[id number] for patient xoon71039-1Golluxrbm department NoteLNNARRATIVEFormatted C-CDA narrative wjdo968278530Kcqtowp Fizurdo MACHUCAUT[address]TXTX[address] 18PEWPJFCCVKUOERWEUIYATQ1768-67-22 T14:17:261.2.840.950025.1.72.3.15| 1.2.840.635147.1.13.104.2.7.2.7278 79_[id number] Hali Traci RN [facility] 2024-01-14 06:16:25 6125-37-14G52:16:25F ormatting of this note might be different [...] w/d, pt leaving in no apparent distress, 33914-1Zusmvliig department XsjwFW4104-97-86P84:17:20[facility] NoteTXT1.2.840.639567.1.13.104.2.7 .2.914315|5084311524TCUscefigbe for patient foos04572-9CzicRQMEFUNNICBJlzsgbgg d C-CDA narrative text[address]TXTX[address] 54JCNBLYGNJLOTAYJURXONPG8503-71-20 T06:17:201.2.840.154813.1.72.3.15| 1.2.840.963540.1.13.104.2.7.2.7278 79_[id number] [facility] 2024-01-14 04:49:43 0605-41-06I87:49:43F ormatting of this note might be different [...] ext without difficulty, amb with steady gait 80905-0Ghbxgkqho department Triage mjqxYP9634-29-96C18:55:49[facility] Triage noteTXT1.2.840.960717.1.13.104.2.7 .2.842262|[id number] for patient ibrt28403-8Prtethuzl department NoteLNNARRATIVEFormatted C-CDA narrative esbx420384237Edsnpe R Shehadeh RN[address] NztqPlnsmtabsIpqdaxekxKFJG20546853 63WKYMJZEWTYFKJBIEBHTNIV8069-28-52 T04:55:491.2.840.723441.1.72.3.15| 1.2.840.323106.1.13.104.2.7.2.7278 79_[id number] Leah King RN [facility] 2024-01-14 04:43:00 1524-46-03Q63:43:00A ssociated Order(s): EKG-12 Lead ROUTINE ONCEPre-Procedure Diagnose(s): Chest pain, unspecified typePost-Procedure Diagnose(s): Chest pain, unspecified type [facility] Emergency Department NotePatient Name: Randy BrionesDate of : 1970 53 year old maleTreatment Room: TX1/TK0Jluatpr Record Number: [id number] Care Physician: Adrianna King Escorted by: Family [5]Mode of Arrival: Personal means [1]EMS 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 METABOLIC PANEL (75655) - AbnormalResult Value Ref RangeNA 138 135 [...] 49 (*) 13 - 40 U/LeGFR 93.3 mL/min/1.13w4WPJ WITH DIFF - AbnormalWBC 11.59 (*) 4.20 [...] 220 U/LCOVID-19 (ID NOW RAPID TESTING) - IkgfhvKCJX-MmM-8 Rapid ID NOW Not Detected Not DetectedETHANOLALCOHOL 62 mg/dLEKG:If EKG completed, see Procedure Note.Orders and Treatments:Orders Placed This EncounterProcedures XR CHEST 1 VW TROPONIN I COMP. METABOLIC PANEL (57491) LIPASE, SERUM CBC WITH DIFF N-Terminal Pro-Bnp Ethanol COVID-19 (ID NOW TESTING) Lab Only COVID Interpretation O2 Per ProtocolOrders Placed This EncounterMedications morpHINE (4 mg/mL) injection 4 mg ondansetron (ZOFRAN (PF)) injection 4 mg ipratropium-albuteroL (DUONEB) 0.5 mg-3 mg(2.5 mg base)/3 mL nebulizer solution 3 mLFirst Provider Eval:ED EventsDate/Time Event User Omryzslf91/07/24 0510 Medical Screening Begins JAC NAVARRO MD --01/14/24 0510 First Provider Evaluation JAC NAVARRO MD --ED COURSEDiagnosis/Impression as of 01/14/24 0605Chest pain, unspecified typeBronchitisProcedures:EKG-12 Lead ROUTINE ONCEDate/Time: 01/14/2024 5:24 AMPerformed by: Jac Navarro MDAuthorized by: Jac Navarro MDECYovani interpreted by ED Physician in the absence of a social media marketing specialist: yesPrevious ECG:Previous ECG: Compared to currentSimilarity: [...] on fileFollow-up:Electronically signed by:Jac Navarro MD01/14/24 0600 22731-4Zchxmlthf Emergency department MklnSR0353-25-43B81:00:50Physician Emergency department NoteTXT1.2.840.975267.1.13.104.2.7 .2.152752|[id number] for patient hizz48625-3Lkrovzjci department NoteLNNARRATIVEFormatted C-CDA narrative textUT49 Harrison StreetAdelMswxsnayqDvnnaduluKEIE41767116 19JMSKZQUXLPXVSJOIIFFWWN9734-01-76 T06:00:501.2.840.980254.1.72.3.15| 1.2.840.413903.1.13.104.2.7.2.7278 79_[id number] [facility] 2023-12-22 23:12:16 5959-36-18A90:12:16F ormatting of this note might be different [...] with steady gait, in no apparent distress, 23310-7Uqgqqmiyo department XfyoFK7921-65-86E31:13:50[facility] NoteTXT1.2.840.693240.1.13.104.2.7 .2.553600|[id number] for patient mwbs30160-4QstfRDVEIBLXFZIHndaxaec d C-CDA narrative jyid648845665CgmwvMary Magaña RN[address]TXTX[address] 24BFUCWTUSKSNHFCZCRUUACH1638-37-17 T23:13:501.2.840.491614.1.72.3.15| 1.2.840.092937.1.13.104.2.7.2.7278 79_[id number] Mary Magaña RN [facility] 2023-12-22 21:41:55 0317-89-63Q11:41:55F ormatting of this note might be different from the original.Pt arrives ambulatory to ED reporting bleeding with stools and 10/10 abdominal pain. States he was here last night but had to leave before receiving results d/t having to work. Says the pain became worse so he came back in. 32201-3Rhypremwh department Triage arsfYL5772-07-89W00:48:52[facility] department Triage noteTXT1.2.840.877828.1.13.104.2.7 .2.468580|[id number] for patient mcay22998-2Poxkhlfti department NoteLNNARRATIVEFormatted C-CDA narrative oysa931080790Hjyudm L Williams RN[address]TXTX[address] 00GAJLFYTHRYKJEIMJOAIXVL5829-79-11 T21:48:521.2.840.106765.1.72.3.15| 1.2.840.736925.1.13.104.2.7.2.7278 79_[id number] Leah Lizama RN [facility] 2023-12-21 21:31:00 3920-86-75K71:31:00F ormatting of this note might be different [...] with steady gait, appears in no distress. 40602-5Bfmjddjev department SjfvSQ3393-81-09B44:38:39[facility] NoteTXT1.2.840.210811.1.13.104.2.7 .2.398772|7925341476VJHmxghprcw for patient tsbc34696-8TcceXUOTJOVLCKGIjyztssn d C-CDA narrative noxc236839235IkcmiMary Magaña RN[address]vdGalvestonGalvestonTXTX[address] 14WEVESEWKWPSPZIPWRFRFDQ7603-71-90 T21:38:391.2.840.459402.1.72.3.15| 1.2.840.595341.1.13.104.2.7.2.7278 79_[id number] Mary Magaña RN [facility] 2023-12-21 21:30:00 0391-24-60U25:30:00F ormatting of this note might be different from the original.Pt wished to leave AMA. Pt states " yall were wonderful but 3am come real early." 03740-5Qhhbripfq department DzmvDY6541-86-69X09:36:58[facility] NoteTXT1.2.840.892189.1.13.104.2.7 .2.851102|[id number] for patient jnbk06593-0PdiiLDPFCIJKURGNzlaprfx d C-CDA narrative text[address]TXTX[address] 49FCGFHSCSJGSXWFQASTIOKN5687-10-70 T21:36:581.2.840.700640.1.72.3.15| 1.2.840.379353.1.13.104.2.7.2.7278 79_[id number] [facility] 2023-12-21 21:26:22 4383-72-77X04:26:22F ormatting of this note might be different from the original.Pt asking to go outside and smoke, wants to go home and eat. Pt educated on risks of leaving AMA. Provider informed pt is in pain. [address] HixqKZ6550-04-81V07:33:35[facility] NoteTXT1.2.840.645307.1.13.104.2.7 .2.746003|[id number] for patient crgv10568-2CsrpYDAQOLXDNGSJwviszyw d C-CDA narrative zmna322709656Phvgshyee BRADFORD[address]TXTX[address] 14QQTCVZJTQDORJHQUQDIOWX0713-41-65 T21:33:351.2.840.829346.1.72.3.15| 1.2.840.774080.1.13.104.2.7.2.7278 79_[id number] Leah King RN [facility] 2023-12-21 19:31:50 2664-12-90I83:31:50F ormatting of this note might be different from the original.Pt arrived ambulatory with complaints of bright red rectal bleeding and generalized abdominal pain this afternoon. Pt states his stool was normal consistency but continuous bright red blood. 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 States he vomits all the time but not something new today. 46219-9Mxdctcgif department Triage qejsOI9916-44-48B34:33:28[facility] department Triage noteTXT1.2.840.009331.1.13.104.2.7 .2.264353|[id number] for patient joqi31385-8Vepwjbtit[address] [place] [address] NoteLNNARRATIVEFormatted C-CDA narrative [id number] D Roman RN[id number] 89IXTRKZKJTSIXBDOYKMDTXC6399-68-46 T19:33:281.2.840.328441.1.72.3.15| 1.2.840.406278.1.13.104.2.7.2.7278 [id number] Gabi Esqueda RN [facility] 2023-11-10 20:13:39 7122-25-80E33:13:39F ormatting of this note might be different from the original.Pt requesting to leave AMA. ERP notified. Pt counseled to remain, risks of leaving AMA including discussed with pt. Pt continued to decline further ER evaluation at this time. AMA papers signed, witnessed, and placed on patient's chart. Pt left ambulatory. VS stable, no ataxia noted, GCS 15, A&Ox4. 14346-9Isvffcuhe department IaszRD4234-45-11X33:13:52[facility] department NoteTXT1.2.840.633581.1.13.104.2.7 .2.951925|[id number] for patient imlz45206-5TxksCVXCZKFXNSBGjcookmz d C-CDA narrative [id number] Medrano RN[id number] 21LUAFALRPNPANSFLAHFRHTL0308-87-24 T20:13:521.2.840.095151.1.72.3.15| 1.2.840.961025.1.13.104.2.7.2.7278 [id number] Briseida Medrano RN [facility] 2023-11-10 19:30:29 6288-29-33C46:30:29F ormatting of this note might be different from the original.Patient arrived to ED c/o SOB and COPD exacerbation. Symptoms started this morning. Patient wears 3L NC at home. Patient is a smoker. Patient states having the chills, diarrhea, and vomiting. States having sharp pains in chest from coughing. 31612-7Yiupsbtxo department Triage irefCN6906-00-58Y31:35:27[facility] department Triage noteTXT1.2.840.165827.1.13.104.2.7 .2.560213|[id number] for patient ozse28799-4Rkhpvlzdc department NoteLNNARRATIVEFormatted C-CDA narrative [id number]-Duexb McInnis RN[id number] 82ZGWDOWQAFQMBLNMQZWQYAL3009-83-49 T19:35:271.2.840.074333.1.72.3.15| 1.2.840.559115.1.13.104.2.7.2.7278 [id number] Sreedhar Gomez RN [facility]
[2024-05-04] MEDS ORDERED: IPRATROPIUM BROM 0.5MG/2.5ML ONE (10:08)
[2024-05-04] MEDS ORDERED: LEVALBUTEROL 1.25 MG/3 ML NEB ONE (10:09)
[2024-05-04] MEDS ORDERED: FAMOTIDINE 20 MG/2 ML VIAL IV ONE (10:09)
[2024-05-04] MEDS ORDERED: NA CHLORIDE 0.9% 1,000 ML ONE (10:09)
[2024-05-04] MEDS ORDERED: THIAMINE 200 MG/2 ML INJ ONE (10:09)
[2024-05-04] MEDS ORDERED: MORPHINE 4 MG/ML SYR ONE (10:09)
[2024-05-04 11:04] LABS: Specific Gravity < 1.005 (1.005-1.030); Urine Bilirubin NEGATIVE (Negative); Urine Blood Negative (Negative); Urine Clarity Clear (Clear); Urine Color Colorless (Yellow); Urine Glucose NEGATIVE (Negative); Urine Ketones NEGATIVE (Negative); Urine Microscopic Reflex YN NO UMIC; Urine Nitrite NEGATIVE (Negative); Urine Protein NEGATIVE (Negative); Urine Urobilinogen Normal (Normal)
[2024-05-04 11:05] LABS: PT Prothrombin Time 9.5 SECONDS (9.4-12.5); PTT, Activated Partial Thromb 26.8 SECONDS (24.3-36.9); Protime INR 0.86
[2024-05-04 11:07] LABS: Absolute Basophils 0.1 K/uL (0-0.5); Absolute Lymphocytes (CBC) 3.2 K/uL (0.7-4.9); Absolute Monocytes 0.6 K/uL (0.1-1.3); Absolute Neutrophil 8.4 K/uL (1.8-8.0); Basophils % 0.8 % (0-1.3); Eosinophils % 0.4 % (0-4.4); Hematocrit 34.2 % (39.6-49.0); Hemoglobin 11.2 g/dL (13.6-17.9); Lymphocytes % 26.1 % (15.3-44.8); MCHC 32.7 g/dL (32.0-36.0); MCV 101.1 fL (80-100); MPV 7.1 fL (7.6-11.3); Monocytes % 4.8 % (3.3-12.3); Neutrophils % 67.9 % (41.7-73.7); Nucleated Red Blood Cells % 0.1 % (0-0); Platelets 285 thou/uL (152-406); RBC Red Blood Cell Count 3.38 M/uL (4.33-5.43); Red Cell Distribution Width 17.6 % (12.1-15.2)
[2024-05-04 11:10] LABS: Barbiturates NEGATIVE (NEGATIVE); Benzodiazepines POSITIVE (NEGATIVE); Cocaine NEGATIVE (NEGATIVE); METHAMPHETAM NEGATIVE (NEGATIVE); Methadone NEGATIVE (NEGATIVE); Opiates NEGATIVE (NEGATIVE); Phencyclidine NEGATIVE (NEGATIVE); THC Cannibis NEGATIVE (NEGATIVE)
[2024-05-04 11:17] LABS: ALT/SGPT 27 U/L (16-61); AST/SGOT 15 U/L (15-37); Albumin 3.1 g/dL (3.4-5.0); Albumin/Globulin Ratio 0.9 (1.1-1.8); Alkaline Phosphatase 59 U/L (45-117); Anion Gap 8.6 mEq/L (5.0-15.0); BUN Blood Urea Nitrogen 7 mg/dL (7-18); Bicarbonate 29 mEq/L (21-32); Bilirubin Total 0.2 mg/dL (0.2-1.0); Globulin 3.4 g/dL (2.3-3.5); Glomerular Filtration Rate 112 ml/min (=/>90); Glucose Level 90 mg/dL (74-106); Lipase 52 U/L (13-75); Magnesium 2.1 mg/dL (1.6-2.4); NT PRO-BNP 115 pg/mL (<125); Potassium 3.6 mEq/L (3.5-5.1); Protein, Total 6.5 g/dL (6.4-8.2); Sodium Level 144 mEq/L (136-145)
--- NOTE | 2024-05-04 11:19 | RAD REPORT ---
EXAM DESCRIPTION: CT - Chest Abd Pelvis Wo Con - 05/04/2024 10:19 am CLINICAL HISTORY: Cough and abdominal pain COMPARISON: April 29, [address] abdomen March 2024 TECHNIQUE: Computed axial tomography of the chest, abdomen and pelvis was obtained. Oral contrast wa s given. IV contrast was not requested. All CT scans are performed using dose optimization technique as appropriate and may include automated exposure control or mA/KV adjustment according to patient size. FINDINGS: The evaluation of mediastinum, manuel, vessels and solid organs is limited secondary to the lack of IV contrast administration The lungs are clear No mediastinal or hilar lymphadenopathy is seen. A pleural effusion is not present. A pericardial effusion is not seen. The liver, spleen, pancreas, adrenals and right kidney grossly normal. 2 millimeter calculus left kid daryl. No hydronephrosis There is no evidence of diverticulitis. Normal appendix Small bilateral inguinal hernias contain IMPRESSION: No acute abnormality involving the chest Small nonobstructing left renal calculus
[2024-05-04 11:20] LABS: Bilirubin Direct < 0.2 mg/dL (0-0.2)
--- NOTE | 2024-05-04 11:21 | RAD REPORT ---
EXAM DESCRIPTION: Heide Single View05/04/2024 10:39 am CLINICAL HISTORY: Chest pain COMPARISON: April 29, 2024 FINDINGS: The lungs appear clear of acute infiltrate. The heart is mildly enlarged IMPRESSION: No acute abnormalities displayed
[2024-05-04 11:38] LABS: Band Neutrophils 2 % (0-1); Blood Morphology Comment NOT SEEN (NOT SEEN); Differential Total Cells Count 100; Lymphocytes 37 % (15-42); Monocytes 4 % (0-10); Platelet Estimate ADEQ; Segmented Neutrophils 56 % (40-80)
--- NOTE | 2024-05-04 12:28 | EDPHYS ---
Physician Documentation [facility] Name: Randy Briones Age: 53 yrs Sex: Male : 1970 Arrival Date: 05/04/2024 Time: 09:52 Bed [id number] Private MD: ED Physician Bg Briones HPI: 05/04 12:20 This 53 yrs old Male presents to ER via EMS with complaints of CHEST PAIN, akash SOB, ETOH ABUSE. 12:20 The patient has shortness of breath at rest, with light activity. Onset: The akash symptoms/episode began/occurred 2 day(s) ago. Duration: The symptoms are continuous, and are steadily getting worse. The patient's shortness of breath is aggravated by coughing, supine position, is alleviated by nebulizer treatment, application of supplemental oxygen. The patient or guardian reports chest pain that is located primarily in the anterior chest wall, bilaterally. Onset: 3 day(s) ago. ETOH AND TOBACCO ABUSE. Associated signs and symptoms: The patient has no apparent associated signs or symptoms. Severity of symptoms: At their worst the symptoms were moderate in the emergency department the symptoms have improved mildly. Associated signs and symptoms: Pertinent positives: dizziness, nausea, shortness of breath. The chest pain is described as aching. Modifying factors: The symptoms are alleviated by application of supplemental oxygen, remaining still, the symptoms are aggravated by cough, deep breath, movement. Historical: - Allergies: :59 Lisinopril; ph - PMHx: 09:59 Alcoholism; COPD; Hepatitis B (Hypertension); home 02 3LNC PRN; Hypertension; ph Osteoporosis; - PSHx: 09:59 Amputation of left index finger; ph - Immunization history:: Adult Immunizations unknown. - Infectious Disease History:: Denies. - Social history:: Smoking status: Patient reports the use of cigarette tobacco products, smokes one-half pack cigarettes per day, Patient uses alcohol, admits to "couple of beers" a day. - Family history:: not pertinent. ROS: 12:20 Constitutional: Negative for fever, chills, and weight loss, Eyes: Negative for injury, akash pain, redness, and discharge, ENT: Negative for injury, pain, and discharge, Neck: Negative for injury, pain, and swelling, Abdomen/GI: Negative for abdominal pain, nausea, vomiting, diarrhea, and constipation, Back: Negative for injury and pain, : Negative for injury, bleeding, discharge, and swelling, MS/Extremity: Negative for injury and deformity, Skin: Negative for injury, rash, and discoloration, Neuro: Negative for headache, weakness, numbness, tingling, and seizure, Psych: Negative for depression, anxiety, suicide ideation, homicidal ideation, and hallucinations, Allergy/Immunology: Negative for hives, rash, and allergies, Endocrine: Negative for neck swelling, polydipsia, polyuria, polyphagia, and marked weight changes, Hematologic/Lymphatic: Negative for swollen nodes, abnormal bleeding, and unusual bruising, 12:20 Cardiovascular: Positive for chest pain, of the chest, Negative for orthopnea, 12:20 Respiratory: Positive for cough, shortness of breath, wheezing, expiratory, Exam: 12:20 Constitutional: This is a well developed, well nourished patient who is awake, alert, akash and in no acute distress. Head/Face: Normocephalic, atraumatic. Eyes: Pupils equal round and reactive to light, extra-ocular motions intact. Lids and lashes normal. Conjunctiva and sclera are non-icteric and not injected. Cornea within normal limits. Periorbital areas with no swelling, redness, or edema. ENT: Nares patent. No nasal discharge, no septal abnormalities noted. Tympanic membranes are normal and external auditory canals are clear. Oropharynx with no redness, swelling, or masses, exudates, or evidence of obstruction, uvula midline. Mucous membranes moist. Neck: Trachea midline, no thyromegaly or masses palpated, and no cervical lymphadenopathy. Supple, full range of motion without nuchal rigidity, or vertebral point tenderness. No Meningismus. Chest/axilla: Normal chest wall appearance and motion. Nontender with no deformity. No lesions are appreciated. Cardiovascular: Regular rate and rhythm with a normal S1 and S2. No gallops, murmurs, or rubs. Normal PMI, no JVD. No pulse deficits. Abdomen/GI: Soft, non-tender, with normal bowel sounds. No distension or tympany. No guarding or rebound. No evidence of tenderness throughout. Back: No spinal tenderness. No costovertebral tenderness. Full range of motion. Male : Normal genitalia with no discharge or lesions. Skin: Warm, dry with normal turgor. Normal color with no rashes, no lesions, and no evidence of cellulitis. MS/ Extremity: Pulses equal, no cyanosis. Neurovascular intact. Full, normal range of motion. Neuro: Awake and alert, GCS 15, oriented to person, place, time, and situation. Cranial nerves II-XII grossly intact. Motor strength 5/5 in all extremities. Sensory grossly intact. Cerebellar exam normal. Normal gait. Psych: Awake, alert, with orientation to person, place and time. Behavior, mood, and affect are within normal limits. 12:20 Respiratory: mild respiratory distress is noted, Respirations: labored breathing, that is mild, Breath sounds: bronchial sounds, decreased breath sounds, rhonchi, wheezing: expiratory Respiratory rate: 18 Vital Signs: 09:58 BP 145 / 83; Pulse 95; Resp 22; Temp 97.7; Pulse Ox 93% on R/A; Weight 79.38 kg; Height ph 5 ft. 4 in. ; 11:04 BP 126 / 65; Pulse 81; Resp 18; Pulse Ox 93% on R/A; ph 09:58 Body Mass Index 30.04 (79.38 kg, 162.56 cm) ph MDM: 09:57 Patient medically screened. akash 10:04 Patient medically screened. akash 12:24 Differential diagnosis: Anemia Anxiety Reaction Bronchitis CHF exacerbation, Chronic akash Obstructive Pulmonary Disease abnormal EKG, acute myocardial infarction, acute pericarditis, anxiety, coronary artery disease chest wall pain, Cholelithiasis costochondritis, esophagitis, gastritis, hiatal hernia, pancreatitis, peptic ulcer disease, pericarditis, pleurisy, pneumothorax, pulmonary embolus, stable angina, thoracic aortic disection, unstable angina, Myocardial Infarction pneumonia, pulmonary edema, reactive airway disease, Sepsis Unstable Angina. Antibiotic administration: The patient is discharged and will get outpatient antibiotics, Amoxicillin. Differential Diagnosis altered mental status, sepsis, flu. HEART Score: History: Moderately Suspicious (1), ECG: Non specific repolarization disturbance / LBTB / PM (1), Age: > 45 and < 65 years (1), Risk Factors: > or = 3 Risk factors for atherosclerotic disease (2), [Hypercholesterolemia] [Hypertension] [Active Smoker] [+ Family HX] [Obesity] Troponin: < or = 1 x Normal Limit (0), Total Score = 5. The patient was given aspirin in the Emergency Department. Immunization status: Influenza vaccine: within last 5 years. Data reviewed: vital signs, nurses notes, lab test result(s), EKG, radiologic studies, CT scan, plain films. Consideration of Admission/Observation Escalation of care including admission/observation considered. 12:28 MARYLOU Risk Score: 1 - Three or more CAD risk factors, TOTAL SCORE = 1. I considered the akash following discharge prescriptions or medication management in the emergency department Medications were administered in the Emergency Department. See MAR. Independent interpretation of the following test(s) in the Emergency Department EKG: See my EKG interpretation above. Test considered but Not performed: CT: NO CT CHEST RO PE. Historians other than the Patient: EMS: EMS WELL INFORMED. Care significantly affected by the following chronic conditions: Hypertension, Chronic Obstructive Pulmonary Disease, Obesity, TOBACCO, ETOH, HEP B,OBESE. Counseling: I had a detailed discussion with the patient and/or guardian regarding the historical points, exam findings, and any diagnostic results supporting the discharge/admit diagnosis, lab results, radiology results, the need for outpatient follow up, for definitive care, a direct sales consultant, a psychiatrist, a refrigerator assembler. 05/04 10:03 Order name: Basic Metabolic Panel; Complete Time: 11:48 05/04 10:03 Order name: CBC with Diff; Complete Time: 11:48 05/04 10:03 Order name: LFT's; Complete Time: 11:48 05/04 10:03 Order name: Magnesium; Complete Time: 11:48 05/04 10:03 Order name: NT PRO-BNP; Complete Time: 11:48 05/04 10:03 Order name: PT-INR; Complete Time: 11:48 05/04 10:03 Order name: Troponin HS; Complete Time: 11:48 05/04 10:03 Order name: Lipase; Complete Time: 11:48 05/04 10:03 Order name: Acetaminophen; Complete Time: 11:48 05/04 10:03 Order name: ETOH Level; Complete Time: 11:48 05/04 10:03 Order name: Ptt, Activated; Complete Time: 11:48 05/04 10:03 Order name: Salicylate; Complete Time: 11:48 05/04 10:03 Order name: Urinalysis w/ reflexes; Complete Time: 11:48 26 10:03 Order name: Urine Drug Screen; Complete Time: 11:48 [facility] 05/04 11:38 Order name: Manual Differential; Complete Time: 11:48 [facility] 05/04 10:03 Order name: XRAY Chest (1 view); Complete Time: 11:48 [facility] 05/04 10:03 Order name: CT Chest Abdomen Pelvis W/O Contrast; Complete Time: 11:48 [facility] 05/04 10:03 Order name: EKG; Complete Time: 10:04 [facility] 05/04 10:03 Order name: Cardiac monitoring; Complete Time: 10:06 [facility] 05/04 10:03 Order name: EKG - Nurse/Tech; Complete Time: 10:36 [facility] 05/04 10:03 Order name: IV Saline Lock; Complete Time: 10: [facility] 05/04 10:03 Order name: Labs collected and sent; Complete Time: 10:53 [facility] 05/04 10:03 Order name: O2 Per Protocol; Complete Time: 10: [facility] 05/04 10:03 Order name: O2 Sat Monitoring; Complete Time: 10: [facility] 05/04 10:03 Order name: Suicide Screening ([place]); Complete Time: 10:36 [facility] Administered Medications: 10:04 Not Given (Given by EMS): [id number] mg IVP once ph 10:05 Not Given (Given by EMSs): aspirinchewable tablet 81 mg PO once ph 10:53 Drug: NS 0.9% IV 1000 ml IV at 1 bolus Per protocol; 1000 mL bolus Route: IV; Rate: 1 kc6 bolus; Site: left forearm; 10:53 Drug: Thiamine IV 100 mg IV at bolus once Route: IV; Rate: bolus; Site: left forearm; kc6 10:53 Drug: Famotidine IVP 20 mg IVP once; dilute with 10 mL 0.9% NaCl; give over 2 minutes kc6 Route: IVP; Site: left forearm; 10:54 Drug: Levalbuterol Inhalation 2.5 mg Inhalation once Route: Inhalation; kc6 10:54 Drug: Ipratropium Inhalation Aerosol 0.5 mg Inhalation once Route: Inhalation; kc6 10:54 Drug: morphine IVP or IV 2 mg IVP once over 4 mins Route: IVP; Infused Over: 4 mins; kc6 Site: left forearm; 10:54 Drug: morphine IVP or IV 2 mg IVP once over 4 mins Route: IVP; Infused Over: 4 mins; kc6 Site: left forearm; Disposition Summary: 05/04/24 12:28 Discharge Ordered Notes: Location: Home akash Problem: new akash Symptoms: have improved akash Condition: Stable akash Diagnosis - COPD/ Chronic obstructive pulmonary disease with (acute) exacerbation akash - Chest pain, unspecified akash - Alcohol abuse with intoxication akash - Tobacco abuse counseling akash - Tobacco use akash - Alcohol use, unspecified with alcohol-induced anxiety disorder akash Followup: akash - With: Private Physician - When: Upon discharge from the Emergency Department - Reason: Recheck today's complaints, Continuance of care, Re-evaluation by your physician Followup: akash - With: Brennan Meadows MD - When: 2 - 3 days - Reason: Recheck today's complaints, Re-evaluation by your physician Followup: akash - With: Mayur Martinez MD - When: 2 - 3 days - Reason: Recheck today's complaints, Re-evaluation by your physician Followup: akash - With: Rosalino Albert MD - When: 2 - 3 days - Reason: Recheck today's complaints, Re-evaluation by your physician Discharge Instructions: - Discharge Summary Sheet akash - Finding Treatment for Addiction akash - Alcohol Intoxication akash - Nonspecific Chest Pain, Adult akash - Alcohol Use Disorder akash - Chronic Obstructive Pulmonary Disease akash - Self-Destructive Behavior akash - Steps to Quit Smoking akash - Health Risks of Smoking akash - Chronic Obstructive Pulmonary Disease Exacerbation akash - Alcohol Intoxication, [id number] akash - Nonspecific Chest Pain, Adult, [id number] akash - Aspirin and Your Heart akash Forms: - Medication Reconciliation Form akash - Antibiotic Education akash - Prescription Opioid Use akash - Patient Portal Instructions akash - Leadership Thank You Letter akash Signatures: Dispatcher [employer] EDBg Hooper MD MD cha Nieto, Roman, MD MD rn Hall, Patricia, RN RN ph Manda Samaniego RN RN kc6 Corrections: (The following items were deleted from the chart) 10:04 10:04 BASIC METABOLIC PANEL+C.LAB.BRZ ordered. EDMS EDMS 10:04 10:04 CBC+H.LAB.BRZ ordered. EDMS EDMS 10:04 10:04 HEPATIC FUNCTION+C.LAB.BRZ ordered. EDMS EDMS 10:04 10:04 MAGNESIUM+C.LAB.BRZ ordered. EDMS EDMS 10:04 10:04 PROBNP+C.LAB.BRZ ordered. EDMS EDMS 10:04 10:04 PROTIME (+INR)+COAG.LAB.BRZ ordered. EDMS EDMS 10:04 10:04 Troponin High Sensitivity+C.LAB.BRZ ordered. EDMS EDMS 10:04 10:04 LIPASE+C.LAB.BRZ ordered. EDMS EDMS 10:04 10:04 ACETAMINOPHEN+C.LAB.BRZ ordered. EDMS EDMS 10:04 10:04 ETHANOL+C.LAB.BRZ ordered. EDMS EDMS 10:04 10:04 PTT, ACTIVATED+COAG.LAB.BRZ ordered. EDMS EDMS 10:04 10:04 SALICYLATE+C.LAB.BRZ ordered. EDMS EDMS 10:04 10:04 Urinalysis+U.LAB.BRZ ordered. EDMS EDMS 10:04 10:04 URINE DRUG SCREEN+UC.LAB.BRZ ordered. EDMS EDMS
--- NOTE | 2024-05-04 12:28 | ER ---
Nurse's Notes [facility] Name: Randy Briones Age: 53 yrs Sex: Male : 1970 Arrival Date: 05/04/2024 Time: 09:52 Bed IW10 Private MD: Diagnosis: COPD/ Chronic obstructive pulmonary disease with (acute) exacerbation;Chest pain, unspecified;Alcohol abuse with intoxication;Tobacco abuse counseling;Tobacco use;Alcohol use, unspecified with alcohol-induced anxiety disorder Presentation: 05/04 09:58 Chief complaint: EMS states: Pt c/o SOB and chest pain that started today, VSS, 93% RA, ph hx of COPD. Coronavirus screen: Vaccine status: Patient reports receiving the 2nd dose of the covid vaccine. Ebola Screen: No symptoms or risks identified at this time. Initial Sepsis Screen: Does the patient meet any 2 criteria? No. Patient's initial sepsis screen is negative. Does the patient have a suspected source of infection? No. Patient's initial sepsis screen is negative. Risk Assessment: Do you want to hurt yourself or someone else? Patient reports no desire to harm self or others. Onset of symptoms was May 04, 2024. 09:58 Method Of Arrival: EMS: [facility] 09:58 Acuity: CANDACE 3 ph Triage Assessment: 10:00 General: Appears in no apparent distress. Behavior is calm, cooperative. Pain: ph Complains of pain in chest. Neuro: Level of Consciousness is awake, alert, obeys commands, Oriented to person, place, time, situation. Cardiovascular: Reports chest pain, shortness of breath, Capillary refill < 3 seconds in bilateral fingers Patient's skin is warm and dry. Respiratory: Reports shortness of breath at rest on exertion Airway is patent Respiratory effort is even, labored, Breath sounds are diminished bilaterally. GI: No signs and/or symptoms were reported involving the gastrointestinal system. Derm: Skin is dry, Skin is flushed, Skin temperature is warm. Musculoskeletal: Circulation, motion, and sensation intact. Range of motion: intact in all extremities. Historical: - Allergies: 09:59 Lisinopril; ph - PMHx: 09:59 Alcoholism; COPD; Hepatitis B (Hypertension); home 02 3LNC PRN; Hypertension; ph Osteoporosis; - PSHx: 09:59 Amputation of left index finger; ph - Immunization history:: Adult Immunizations unknown. - Infectious Disease History:: Denies. - Social history:: Smoking status: Patient reports the use of cigarette tobacco products, smokes one-half pack cigarettes per day, Patient uses alcohol, admits to "couple of beers" a day. - Family history:: not pertinent. Screenin:01 [facility] ED Fall Risk Assessment (Adult) History of falling in the last 3 months, ph including since admission No falls in past 3 months (0 pts) Confusion or Disorientation No (0 pts) Intoxicated or Sedated No (0 pts) Impaired Gait No (0 pts) Mobility Assist Device Used No (0 pt) Altered Elimination No (0 pt) Score/Fall Risk Level 0 - 2 = Low Risk Oriented to surroundings, Maintained a safe environment, Hourly rounding (assess needs \\T\\ fall precautionary measures) done. Abuse screen: Denies threats or abuse. Denies injuries from another. Nutritional screening: No deficits noted. Tuberculosis screening: No symptoms or risk factors identified. Assessment: 11:03 Reassessment: Patient appears in no apparent distress at this time. Patient and/or ph family updated on plan of care and expected duration. Pain level reassessed. Patient is alert, oriented x 3, equal unlabored respirations, skin warm/dry/pink. General: SEE TRIAGE ASSESSMENT. 12:01 Reassessment: Pt attempting to leave ED, d/c his IV appears to be intact, pt stopped in hallway and dressing placed to IV site, states that he is going home, ERP notified, will be discahrged. Vital Signs: 09:58 BP 145 / 83; Pulse 95; Resp 22; Temp 97.7; Pulse Ox 93% on R/A; Weight 79.38 kg; Height ph 5 ft. 4 in. ; 11:04 BP 126 / 65; Pulse 81; Resp 18; Pulse Ox 93% on R/A; ph 09:58 Body Mass Index 30.04 (79.38 kg, 162.56 cm) ED Course: 09:57 Patient arrived in ED. [facility] 09:57 Bg Briones MD is Attending Physician. [facility] 09:58 Angle Hoover, RN is Primary Nurse. 09:59 Triage completed. ph 10:00 Arm band placed on Patient placed in an exam room, on a stretcher, on gi technician, ph on pulse oximetry. 10:02 Patient has correct armband on for positive identification. Bed in low position. Call ph light in reach. Side rails up X2. Client placed on continuous cardiac and pulse oximetry monitoring. NIBP monitoring applied. senior salesforce developer on. 10:20 CT Chest Abdomen Pelvis W/O Contrast In Process Unspecified. EDMS 10:41 XRAY Chest (1 view) In Process Unspecified. EDMS 11:03 Initial lab(s) drawn, by ED staff, sent to lab. EKG done, by ED staff, reviewed by bennett Briones MD. Maintain EMS IV. Dressing intact. Good blood return noted. Site clean \\T\\ dry. Gauge \\T\\ site: 20 LFA. 12:02 No provider procedures requiring assistance completed. IV discontinued, intact, ph bleeding controlled, No redness/swelling at site. Pressure dressing applied. 12:26 Brennan Meadows MD is Referral Physician. akash 12:26 Mayur Martinez MD is Referral Physician. akash 12:26 Rosalino Albert MD is Referral Physician. akash Administered Medications: 10:04 Not Given (Given by EMS): [id number] mg IVP once ph 10:05 Not Given (Given by EMSs): aspirinchewable tablet 81 mg PO once ph 10:53 Drug: NS 0.9% IV 1000 ml IV at 1 bolus Per protocol; 1000 mL bolus Route: IV; Rate: 1 kc6 bolus; Site: left forearm; 10:53 Drug: Thiamine IV 100 mg IV at bolus once Route: IV; Rate: bolus; Site: left forearm; kc6 10:53 Drug: Famotidine IVP 20 mg IVP once; dilute with 10 mL 0.9% NaCl; give over 2 minutes kc6 Route: IVP; Site: left forearm; 10:54 Drug: Levalbuterol Inhalation 2.5 mg Inhalation once Route: Inhalation; kc6 10:54 Drug: Ipratropium Inhalation Aerosol 0.5 mg Inhalation once Route: Inhalation; kc6 10:54 Drug: morphine IVP or IV 2 mg IVP once over 4 mins Route: IVP; Infused Over: 4 mins; kc6 Site: left forearm; 10:54 Drug: morphine IVP or IV 2 mg IVP once over 4 mins Route: IVP; Infused Over: 4 mins; kc6 Site: left forearm; Medication: 10:01 VIS not applicable for this client. ph Outcome: 12:02 Discharged to home ambulatory, ph 12:02 Condition: good 12:28 Discharge ordered by . akash 12:36 Patient left the ED. iw Signatures: Dispatcher [employer] EDBg Hooper MD MD cha Williams, Irene, RN RN iw Hall, Patricia, RN RN ph Campbell, Kaitlyn, RN RN kc6
[2024-05-04 13:01] VITALS: BP 126/65; TEMP 97.7; O2SAT 93
--- NOTE | 2024-05-05 14:11 | EKG ---
Test Date: 2024-05-04 Test Time: 10:33:10 Endoscopic Technician: [place] MEASUREMENT RESULTS: Intervals: Rate: 81 IA: 134 QRSD: 102 QT: 398 QTc: 462 [place]: P: -10 IA: 134 QRS: -16 T: -9 INTERPRETIVE STATEMENTS: Normal sinus rhythm Normal ECG Compared to ECG 04/29/2024 17:15:40 No significant changes Electronically Signed On 05-05-24 14:07:28 CDT by Rosalino Albert
== END 2024-05-04 12:36 | disposition home or self-care (01) ==
LOC: ER 09:52
DX: J44.1 Chronic obstructive pulmonary disease with (acute) exacerbation (principal); R07.9 Chest pain, unspecified; F10.280 Alcohol dependence with alcohol-induced anxiety disorder; Z71.6 Tobacco abuse counseling; Z72.0 Tobacco use
CPT/HCPCS: 93005; 85025; 80048; 36415; 83735; 85610; 80076; 85730; 81003; 84484; 83690; 83880; 80307; 71250; 74176; 71045; 80143; 80179; 82077; J3411; J7614; J7644; J7030; 96374; 96375; 99285

== ENCOUNTER 2024-05-05 02:57 | Emergency (ER) | payer OTHER ==
--- OUTSIDE RECORDS SUMMARY | 2024-05-05 03:02 | XMS REPORT | Continuity of Care Document ---
Author Name Unknown Address [address] [facility] [address] [place] [address] [facility] Address [address] [facility] [place] [address] Care Team Providers Care [employer] Name Role Phone GIRISH LOPEZIsaiasROMEO Primary Care Physician Unavailab DARIEN Posey Attending Clinician Unavailable MINNA ORTA Attending Clinician Unavailab WENDY High Attending Clinician Unava ilSHARATH Randolph Attending Clinician Unavailable PEG CAMP Attending Clinician Unavailable Peg Camp NP Attending Clinician [phone] URSULA QUINTANILLA Attending Clinician Unavailable DEMETRIA DAVENPORT Attending Clinician UnaDemetria Carver MD Attending Clinician + Christina Victoria Attending Clinician [phone] JAC NAVARRO Attending Clinician Unavailable Jac Navarro MD Attending Clinician [phone] TYLER ROWE Attending Clinician Unavailab MELINDA Boothe Attending Clinician Unavailable Melinda Maciel DO Attending Clinician [phone] CHRISTY HOLLIDAY Attending Clinician Unavailable Christy Holliday MD Attending Clinician [phone] MARIA ELENA CHAN Attending George akins Unavailable DENISE SUNG Attending Clinician Unavailable KARLEY ADAMS Attending Clinician Unavailable JAC NAVARRO Admitting Clinician Unavailable MELINDA MACIEL Admitting Clinician Unavailable CHRISTY HOLLIDAY Admitting Clinician Unavailable Payers Payer Name Policy Type Policy Number Effective Date Expirati on Date Source [facility] 9 [id number] 2024 00:00[facility] [id number] 2023 00:00:00 2024 00:00:00 [employer] [id number] 2023 00:00:00 [employer] 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 ON 9 [id number] 2023 00:00:00 Problems Condition Name Condition Details [...] History of tobacco use Smokes tobacco daily [facility] of Social function 2024-02-08 00:00:00 2024-02-08 00:00:00 [facility] Alcohol intake 2024-02-08 00:00:00 2024-02-08 00:00:00 4.29 /d [facility] Exposure to SARS-CoV-2 (event) 2022-10-04 00:00:00 2022-10-14 10:25:00 Not sure [facility] Tobacco use and exposure 2018-03-24 00:00:00 2018-03-24 00:00:00 User of smokeless tobacco [facility] Tobacco Comment 2018-03-24 00:00:00 2018-03-24 00:00:00 trying to quit [facility] Sex Ass[birth year] At 1970 00:00:00 1970 00:00:00 [facility] Smoking Status Start Date Stop Date Source Smokes tobacco daily 2018-03-24 00:00:00 [facility] Medications Ordered Medication Name Filled Medication Name Start Date Stop Date Current Medication? Ordering Clinician Indication Dosage Frequency Signature (SIG) Comments Components Source ketorolac (TORADOL) injection 30 mg 02-17 03:15: 00 02-17 15:14 :00 Yes 30mg 30 mg, Slow IV Push, ONCE, 1 dose, On Thu02/17/24 at 2215, Routine [facility] methylpredn isolone sod succ (SOLU-MEDRO L) injection 125 mg 02-17 03:00: 00 02-17 14:59 :00 Yes 125mg 125 mg, Intravenou s, ONCE, 1 dose, On Thu02/17/24 at 2200, 2 mL [facility] ipratropium -albuteroL (DUONEB) 0.5 mg-3 mg(2.5 mg base)/3 mL nebulizer solution 6 mL 02-17 03:00: 00 02-17 14:59 :00 Yes 6mL 6 mL, Inhalation , ONCE NOW, 1 dose, On Thu02/17/24 at 2200, Routine [facility] NaCl 0.9% (NS) bolus infusion 1,000 mL 02-17 03:00: 00 02-17 14:59 :00 Yes 1000mL at 999 mL/hr, 1,000 mL, IV Infusion, ONCE, 1 dose, On Thu02/17/24 at 2200, LAURYN [facility] triamterene -hydrochlor othiazide 37.5-25 mg per capsule 02-16 20:52: 37 02-16 00:00 :00 No 1{capsu le} Take 1 capsule by mouth every morning. [facility] albuterol 5 mg/mL nebulizer solution 02-16 20:51: 42 02-16 00:00 :00 No 2.5mg Inhale 2.5 mg every 6 (six) hours as needed for Wheezing or Shortness of Breath. [facility] ketorolac (TORADOL) injection 15 mg 02-08 03:00: 00 02-08 02:21 :00 No 15mg 15 mg, Slow IV Push, ONCE, 1 dose, On Thu02/08/24 at 2200, Routine [facility] iopamidol (ISOVUE 370-500 mL) injection 100 mL 02-07 22:30: 00 02-07 22:30 :00 Yes [id number] 100mL 100 mL, Intravenou s, ONCE, 1 dose, On Thu02/08/24 at 1730, Routine [facility] ipratropium -albuteroL (DUONEB) 0.5 mg-3 mg(2.5 mg base)/3 mL nebulizer solution 3 mL 02-07 21:15: 00 02-07 20:45 :00 No 3mL 3 mL, Inhalation , ONCE, 1 dose, On Thu02/08/24 at 1615, Routine [facility] morpHINE (2 mg/mL) injection 4 mg 02-07 21:15: 00 02-07 20:27 :00 No 4mg 4 mg, Slow IV Push, ONCE, 1 dose, On Thu02/08/24 at 1615, STAT [facility] ondansetron (ZOFRAN (PF)) injection 4 mg 02-07 21:15: 00 02-07 20:22 :00 No 4mg 4 mg, Slow IV Push, ONCE, 1 dose, On Thu02/08/24 at 1615, [facility] magnesium sulfate in water 2 gram/50 mL (4 %) infusion 2 g 02-07 21:00: 00 02-07 21:30 :00 No 2g 2 g, IV Piggyback, Administer over 60 Minutes, ONCE, 1 dose, On Thu02/08/24 at 1600, Routine [facility] ipratropium -albuteroL (DUONEB) 0.5 mg-3 mg(2.5 mg base)/3 mL nebulizer solution 3 mL 02-07 20:30: 00 02-07 19:31 :00 No 3mL 3 mL, Inhalation , ONCE, 1 dose, On Thu02/08/24 at 1530, [facility] HYDROcodone -acetaminop hen (NORCO) 10-325 mg tablet 1 tablet 01-13 13:15: 00 01-13 12:15 :00 No 1{tbl} 1 tablet, Oral, ONCE, 1 dose, On Thu01/14/24 at 0715, [facility] ipratropium -albuteroL (DUONEB) 0.5 mg-3 mg(2.5 mg base)/3 mL nebulizer solution 3 mL 01-13 13:00: 00 01-13 11:53 :00 No 3mL 3 mL, Inhalation , ONCE NOW, 1 dose, On Thu01/14/24 at 0700, [facility] ondansetron (ZOFRAN (PF)) injection 4 mg 01-13 11:30: 00 01-13 11:37 :00 No 4mg 4 mg, Slow IV Push, ONCE, 1 dose, On Thu01/14/24 at 0530, [facility] morpHINE (4 mg/mL) injection 4 mg 01-13 11:30: 00 01-13 11:37 :00 No 4mg 4 mg, Slow IV Push, ONCE, 1 dose, On Thu01/14/24 at 0530, STAT [facility] azithromyci n (ZITHROMAX Z-PORTER) 250 mg tablet 01-13 00:00: 00 02-16 00:00 :00 No [id number] Take 500 mg on day 1 then 250 mg on days 2-5 [facility] predniSONE 20 mg tablet 01-13 00:00: 00 02-16 00:00 :00 No [id number] Take 1 po tid x 2 days, then take 1 po bid x 3 days, then take 1 po daily x 3 days. [facility] acetaminoph en-codeine 300-30 mg tablet 01-13 00:00: 00 01-21 04:59 :00 No [id number] 1{tbl} Take 1 tablet by mouth every 6 (six) hours as needed for Pain (scale 7-10) (severe cough) for up to 7 days. Indication s: acute pain, severe cough [facility] clonazePAM 1 mg tablet 12-26 00:00: 00 02-16 00:00 :00 No 1mg Take 1 tablet by mouth at bedtime as needed for Other (anxiety). [facility] KCL (KLOR-CON M20) tablet 40 mEq 12-23 05:00: 00 12-23 05:07 :00 No 40meq 40 mEq, Oral, ONCE, 1 dose, On Thu12/22/23 at 2300, LAURYN [facility] NaCl 0.9% (NS) bolus infusion 1,000 mL 12-23 05:00: 00 12-23 05:09 :00 No 1000mL at 999 mL/hr, 1,000 mL, IV Infusion, ONCE, 1 dose, On Thu12/22/23 at 2300, LAURYN [facility] ondansetron (ZOFRAN (PF)) injection [...] 12-22 03:30: 00 12-22 03:30 :00 No [id number] 100mL 100 mL, Intravenou s, ONCE, 1 [...] Thu12/21/23 at 2045, Routine [facility] hydrocortis one 25 mg suppository 12-22 00:00: 00 Yes [id number] 25mg Insert 1 Suppositor y into rectum 2 (two) times daily as needed for Rectal itching/pa in. [facility] ondansetron 4 mg disintegrat ing tablet 12-22 00:00: 00 02-16 00:00 :00 No [id number] 4mg Take 1 tablet by mouth every 8 (eight) hours as needed for Nausea and Vomiting (N/V). [facility] amoxicillin -clavulanat e 875-125 mg per tablet 12-22 00:00: 00 01-02 05:59 :00 No [id number] 1{tbl} Take 1 tablet by mouth every [...]
Durat ion of therapy: Once (ED) [facility] iopamidol (ISOVUE 370-500 mL) injection 70 mL 2021-11 18:30: 00 10-14 18:30 :00 No [id number] 70mL 70 mL, Intravenou s, ONCE, 1 [...] 2-06 00:00: 00 02-16 00:00 :00 No [id number] 750mg Take 1 tablet by mouth every [...] dose, On Kym 02/20/22 at 0645, STAT [facility] ipratropium -albuteroL (DUONEB) 0.5 mg-3 mg(2.5 mg base)/3 mL nebulizer solution 3 mL 02-20 10:30: 00 02-20 09:34 :00 No 3mL 3 mL, Inhalation , ONCE, 1 dose, On Kym 02/20/22 at 0530, Routine [facility] albuterol 90 mcg/actuati on inhaler 02-20 00:00: 00 Yes [id number] 2{puff} Inhale 2 Puffs every 4 (four) hours as needed for Wheezing or Shortness of Breath. [facility] triamterene -hydrochlor othiazid 37.5-25 mg tablet 02-20 00:00: 00 Yes [id number] 1{tbl} Take 1 tablet by mouth daily. [facility] chlordiazeP OXIDE 25 mg capsule 02-20 00:00: 00 Yes [id number] 25mg Take 1 capsule by mouth every 6 (six) hours as needed for Anxiety, Agitation, Heart Rate => 100 or Detox. [facility] predniSONE 10 mg tablet 02-20 00:00: 00 02-16 00:00 :00 No [id number] TAKE ONE TABLET BY MOUTH DAILY [facility] albuterol 2.5 mg /3 mL (0.083 %) nebulizer solution 02-20 00:00: 00 02-16 00:00 :00 No [id number] 2.5mg Inhale 3 mL every 4 (four) hours. May also nebulize one extra every 6 hours. [facility] budesonide- formoteroL 160-4.5 mcg/actuati on inhaler 02-20 00:00: 00 02-16 00:00 :00 No [id number] 2{puff} Inhale 2 Puffs 2 (two) times daily. [facility] albuterol 5 mg/mL nebulizer [...] SARS-COV-2 COVID-19 PFIZER VACCINE 2021-02-03 00:00:00 Completed [facility] SARS-COV-2 COVID-19 PFIZER VACCINE 2021-02-03 00:00:00 Completed [facility] SARS-COV-2 COVID-19 PFIZER VACCINE 2021-02-03 00:00:00 Completed [facility] SARS-COV-2 COVID-19 PFIZER VACCINE 2021-01-13 00:00:00 Completed [facility] SARS-COV-2 COVID-19 PFIZER VACCINE 2021-01-13 00:00:00 Completed [facility] SARS-COV-2 COVID-19 PFIZER VACCINE 2021-01-13 00:00:00 Completed [facility] Pneumococcal Polysaccharide, PPSV23 (PNEUMOVAX) 2018-03-26 00:00:00 Completed [facility] Influenza Virus Vaccine Quad IM 3+ YRS 2018-03-26 00:00:00 Completed [facility] Pneumococcal Polysaccharide, PPSV23 (PNEUMOVAX) 2018-03-26 00:00:00 Completed [facility] Influenza Virus Vaccine Quad IM 3+ YRS 2018-03-26 00:00:00 Completed [facility] Pneumococcal Polysaccharide, PPSV23 (PNEUMOVAX) 2018-03-26 00:00:00 Completed [facility] Influenza Virus Vaccine Quad IM 3+ YRS 2018-03-26 00:00:00 Completed [facility] Pneumococcal Polysaccharide, PPSV23 (PNEUMOVAX) Unknown Completed [facility] Influenza Virus Vaccine Quad IM 3+ YRS Unknown Completed [facility] SARS-COV-2 COVID-19 PFIZER VACCINE Unknown Completed [facility] SARS-COV-2 COVID-19 PFIZER VACCINE Unknown Completed [facility] Pneumococcal Polysaccharide, PPSV23 (PNEUMOVAX) Unknown Completed [facility] Influenza Virus Vaccine Quad IM 3+ YRS Unknown Completed [facility] SARS-COV-2 COVID-19 PFIZER VACCINE Unknown Completed [facility] SARS-COV-2 COVID-19 PFIZER VACCINE Unknown Completed [facility] Pneumococcal Polysaccharide, PPSV23 (PNEUMOVAX) Unknown Completed [facility] Influenza Virus Vaccine Quad IM 3+ YRS Unknown Completed [facility] SARS-COV-2 COVID-19 PFIZER VACCINE Unknown Completed [facility] SARS-COV-2 COVID-19 PFIZER VACCINE Unknown Completed [facility] Pneumococcal Polysaccharide, PPSV23 (PNEUMOVAX) Unknown Completed [facility] Influenza Virus Vaccine Quad IM 3+ YRS Unknown Completed [facility] SARS-COV-2 COVID-19 PFIZER VACCINE Unknown Completed [facility] SARS-COV-2 COVID-19 PFIZER VACCINE Unknown Completed [facility] Pneumococcal Polysaccharide, PPSV23 (PNEUMOVAX) Unknown Completed [facility] Influenza Virus Vaccine Quad IM 3+ YRS Unknown Completed [facility] SARS-COV-2 COVID-19 PFIZER VACCINE Unknown Completed [facility] SARS-COV-2 COVID-19 PFIZER VACCINE Unknown Completed [facility] Pneumococcal Polysaccharide, PPSV23 (PNEUMOVAX) Unknown Completed [facility] Influenza Virus Vaccine Quad IM 3+ YRS Unknown Completed [facility] SARS-COV-2 COVID-19 PFIZER VACCINE Unknown Completed [facility] SARS-COV-2 COVID-19 PFIZER VACCINE Unknown Completed [facility] Pneumococcal Polysaccharide, PPSV23 (PNEUMOVAX) Unknown Completed [facility] Influenza Virus Vaccine Quad IM 3+ YRS Unknown Completed [facility] SARS-COV-2 COVID-19 PFIZER VACCINE Unknown Completed [facility] SARS-COV-2 COVID-19 PFIZER VACCINE Unknown Completed [facility] Pneumococcal Polysaccharide, PPSV23 (PNEUMOVAX) Unknown Completed [facility] Influenza Virus Vaccine Quad IM 3+ YRS Unknown Completed [facility] SARS-COV-2 COVID-19 PFIZER VACCINE Unknown Completed [facility] SARS-COV-2 COVID-19 PFIZER VACCINE Unknown Completed [facility] Vital Signs Vital Name Observation Time Observation Value Comments S ource Systolic blood pressure 2024-02-18 01:57:00 134 mm[Hg] [facility] Diastolic blood pressure 2024-02-18 01:57:00 94 mm[Hg] [facility] Body height 2024-02-18 01:57:00 162.6 cm [facility] Body weight 2024-02-18 01:57:00 79.379 kg [facility] BMI 2024-02-18 01:57:00 30.04 kg/m2 [facility] Heart rate 2024-02-18 01:53:00 110 /min [facility] Body temperature 2024-02-18 01:53:00 36.61 Debbie [facility] Respiratory rate 2024-02-18 01:53:00 24 /min [facility] Oxygen saturation in Arterial blood by Pulse oximetry 2024-02-18 01:53:00 93 /min [facility] Systolic blood pressure 2024-02-09 01:54:05 150 mm[Hg] [facility] Diastolic blood pressure 2024-02-09 01:54:05 91 mm[Hg] [facility] Heart rate 2024-02-09 01:54:05 87 /min [facility] Respiratory rate 2024-02-09 01:54:05 17 /min [facility] Oxygen saturation in Arterial blood by Pulse oximetry 2024-02-09 01:54:05 93 /min [facility] Body temperature 2024-02-09 01:45:00 36.67 Debbie [facility] Body height 2024-02-09 01:45:00 162.6 cm [facility] Body weight 2024-02-09 01:45:00 81.194 kg [facility] BMI 2024-02-09 01:45:00 30.73 kg/m2 [facility] Respiratory rate 2024-02-08 21:00:00 18 /min [facility] Oxygen saturation in Arterial blood by Pulse oximetry 2024-02-08 21:00:00 96 /min [facility] Systolic blood pressure 2024-02-08 20:27:00 164 mm[Hg] [facility] Diastolic blood pressure 2024-02-08 20:27:00 90 mm[Hg] [facility] Heart rate 2024-02-08 20:27:00 83 /min [facility] Body temperature 2024-02-08 19:12:00 36.83 Debbie [facility] Body height 2024-02-08 19:12:00 162.6 cm [facility] Body weight 2024-02-08 19:12:00 81.194 kg [facility] BMI 2024-02-08 19:12:00 30.73 kg/m2 [facility] Heart rate 2024-01-14 12:15:00 98 /min [facility] Body temperature 2024-01-14 12:15:00 36.56 Debbie [facility] Respiratory rate 2024-01-14 12:15:00 14 /min [facility] Oxygen saturation in Arterial blood by Pulse oximetry 2024-01-14 12:15:00 95 /min [facility] Systolic blood pressure 2024-01-14 12:00:00 140 mm[Hg] [facility] Diastolic blood pressure 2024-01-14 12:00:00 90 mm[Hg] [facility] Body height 2024-01-14 10:51:00 162.6 cm [facility] Body weight 2024-01-14 10:51:00 81.194 kg [facility] BMI 2024-01-14 10:51:00 30.73 kg/m2 [facility] Systolic blood pressure 2023-12-23 05:02:00 133 mm[Hg] [facility] Diastolic blood pressure 2023-12-23 05:02:00 84 mm[Hg] [facility] Heart rate 2023-12-23 05:02:00 78 /min [facility] Body temperature 2023-12-23 05:02:00 36.17 Debbie [facility] Respiratory rate 2023-12-23 05:02:00 17 /min [facility] Oxygen saturation in Arterial blood by Pulse oximetry 2023-12-23 05:02:00 91 /min [facility] Body height 2023-12-23 03:45:00 162.6 cm [facility] Body weight 2023-12-23 03:45:00 81.194 kg [facility] BMI 2023-12-23 03:45:00 30.73 kg/m2 [facility] Systolic blood pressure 2023-12-22 02:08:00 143 mm[Hg] [facility] Diastolic blood pressure 2023-12-22 02:08:00 92 mm[Hg] [facility] Heart rate 2023-12-22 02:08:00 81 /min [facility] Respiratory rate 2023-12-22 02:08:00 13 /min [facility] Oxygen saturation in Arterial blood by Pulse oximetry 2023-12-22 02:08:00 95 /min [facility] Body temperature 2023-12-22 01:33:00 36.72 Debbie [facility] Body height 2023-12-22 01:33:00 162.6 cm [facility] Body weight 2023-12-22 01:33:00 81.239 kg [facility] BMI 2023-12-22 01:33:00 30.74 kg/m2 [facility] Systolic blood pressure 2023-11-11 02:00:00 127 mm[Hg] [facility] Diastolic blood pressure 2023-11-11 02:00:00 87 mm[Hg] [facility] Heart rate 2023-11-11 02:00:00 79 /min [facility] Respiratory rate 2023-11-11 02:00:00 20 /min [facility] Oxygen saturation in Arterial blood by Pulse oximetry 2023-11-11 02:00:00 98 /min [facility] Body temperature 2023-11-11 01:31:00 36.28 Debbie [facility] Body height 2023-11-11 01:31:00 162.6 cm [facility] Body weight 2023-11-11 01:31:00 79.379 kg [facility] BMI 2023-11-11 01:31:00 30.04 kg/m2 [facility] Systolic blood pressure 2023-10-27 06:54:00 133 mm[Hg] [facility] Diastolic blood pressure 2023-10-27 06:54:00 94 mm[Hg] [facility] Heart rate 2023-10-27 06:54:00 95 /min [facility] Body temperature 2023-10-27 06:54:00 36.44 Debbie [facility] Respiratory rate 2023-10-27 06:54:00 22 /min [facility] Body height 2023-10-27 06:54:00 162.6 cm [facility] Body weight 2023-10-27 06:54:00 78.472 kg [facility] BMI 2023-10-27 06:54:00 29.70 kg/m2 [facility] Oxygen saturation in Arterial blood by Pulse oximetry 2023-10-27 06:54:00 94 /min [facility] Systolic blood pressure 2022-10-14 19:43:00 111 mm[Hg] [facility] Diastolic blood pressure 2022-10-14 19:43:00 74 mm[Hg] [facility] Heart rate 2022-10-14 19:43:00 98 /min [facility] Body temperature 2022-10-14 19:43:00 36.39 Debbie [facility] Respiratory rate 2022-10-14 19:43:00 22 /min [facility] Oxygen saturation in Arterial blood by Pulse oximetry 2022-10-14 19:43:00 94 /min [facility] Body height 2022-10-14 16:13:00 162.6 cm [facility] Body weight 2022-10-14 16:13:00 81.647 kg [facility] BMI 2022-10-14 16:13:00 30.90 kg/m2 [facility] Systolic blood pressure 2022-03-12 10:13:00 119 mm[Hg] [facility] Diastolic blood pressure 2022-03-12 10:13:00 75 mm[Hg] [facility] Heart rate 2022-03-12 10:13:00 105 /min [facility] Body temperature 2022-03-12 10:13:00 37.28 Debbie [facility] Respiratory rate 2022-03-12 10:13:00 19 /min [facility] Body height 2022-03-12 10:13:00 162.6 cm [facility] Body weight 2022-03-12 10:13:00 99.791 kg [facility] BMI 2022-03-12 10:13:00 37.76 kg/m2 [facility] Oxygen saturation in Arterial blood by Pulse oximetry 2022-03-12 10:13:00 96 /min [facility] Systolic blood pressure 2022-02-20 11:57:00 155 mm[Hg] [facility] Diastolic blood pressure 2022-02-20 11:57:00 88 mm[Hg] [facility] Heart rate 2022-02-20 11:57:00 105 /min [facility] Respiratory rate 2022-02-20 11:57:00 18 /min [facility] Oxygen saturation in Arterial blood by Pulse oximetry 2022-02-20 11:57:00 100 /min [facility] Body temperature 2022-02-20 09:25:00 37 Debbie [facility] Body height 2022-02-20 09:25:00 162.6 cm [facility] Body weight 2022-02-20 09:25:00 96.163 kg [facility] BMI 2022-02-20 09:25:00 36.39 kg/m2 [facility] Procedures Procedure Date / Time Performed Performing Clinician Source AC PANEL 20 + LACTIC ACID 2024-02-08 20:47:00 Christina Villarreal [facility] XR CHEST 1 VW 2024-02-08 19:47:00 Christina Villarreal [facility] URINALYSIS 2024-02-08 19:36:00 [facility] MAGNESIUM 2024-02-08 19:25:00 [facility] TROPONIN I 2024-02-08 19:25:00 [facility] COMP. METABOLIC PANEL ([id number]) 2024-02-08 19:25:00 Christina Villarreal [facility] ETHANOL 2024-02-08 19:25:00 [facility] CBC WITH DIFF 2024-02-08 19:25:00 Christina Villarreal [facility] N-TERMINAL PRO-BNP 2024-02-08 19:25:00 Christina Villarreal [facility] EKG-12 LEAD 2024-01-14 12:00:51 Jac Navarro [facility] LIPASE 2024-01-14 11:11:00 Jac Navarro [facility] TROPONIN I 2024-01-14 11:11:00 Jac Navarro [facility] COMP. METABOLIC PANEL ([id number]) 2024-01-14 11:11:00 Jac Navarro [facility] ETHANOL 2024-01-14 11:11:00 Jac Navarro [facility] CBC WITH DIFF 2024-01-14 11:11:00 [facility] N-TERMINAL PRO-BNP 2024-01-14 11:11:00 Jac Navarro [facility] COVID-19 (ID NOW RAPID TESTING) 2024-01-14 11:11:00 Jac Navarro [facility] CONSENT/REFUSAL FOR DIAGNOSIS AND TREATMENT 2024-01-14 10:44:32 Doctor Unassigned, [place] [facility] LIPASE 2023-12-23 04:17:00 Tyler Rowe [facility] COMP. METABOLIC PANEL ([id number]) 2023-12-23 04:17:00 Tyler Rowe [facility] CBC WITH DIFF 2023-12-23 04:17:00 [facility] 2023-12-23 04:17:00 Tyler Rowe Un [facility] CONSENT/REFUSAL FOR DIAGNOSIS AND TREATMENT 2023-12-23 03:40:32 Doctor Unassigned, [place] [facility] CT ABDOMEN PELVIS W CONTRAST 2023-12-22 02:31:05 Melinda Maciel [facility] LIPASE 2023-12-22 01:58:00 Melinda Maciel [facility] COMP. METABOLIC PANEL ([id number]) 2023-12-22 01:58:00 Melinda Maciel [facility] ETHANOL 2023-12-22 01:58:00 Melinda Maciel [facility] CBC WITH DIFF 2023-12-22 01:58:00 Melinda Maciel [facility] PROTHROMBIN TIME / INR 2023-12-22 01:58:00 [facility] URINALYSIS 2023-12-22 01:58:00 [facility] CONSENT/REFUSAL FOR DIAGNOSIS AND TREATMENT 2023-12-22 01:19:14 Doctor Unassigned, [place] [facility] [facility] NOTICE OF PRIVACY PRACTICES 2023-11-11 01:24:24 Doctor Unassigned, [place] [facility] CONSENT/REFUSAL FOR DIAGNOSIS AND TREATMENT 2023-11-11 01:23:54 Doctor Unassigned, [place] [facility] COVID-19 (ID NOW RAPID TESTING) 2023-10-27 07:09:00 Jac Navarro [facility] NOTICE OF PRIVACY PRACTICES 2023-10-27 06:49:48 Doctor Unassigned, [place] [facility] CONSENT/REFUSAL FOR DIAGNOSIS AND TREATMENT 2023-10-27 06:47:40 Doctor Unassigned, [place] [facility] CT ABDOMEN PELVIS W CONTRAST 2022-10-14 17:33:00 Melinda Maciel [facility] XR CHEST 1 VW 2022-10-14 17:10:37 [facility] TROPONIN I 2022-10-14 16:37:00 [facility] COMP. METABOLIC PANEL ([id number]) 2022-10-14 16:37:00 [facility]FF 2022-10-14 16:37:00 Melinda Maciel [facility] PROTHROMBIN TIME / INR 2022-10-14 16:37:00 [facility] 2022-10-14 16:37:00 [facility] N-TERMINAL PRO-BNP 2022-10-14 16:37:00 Melinda Maciel [facility] CONSENT/REFUSAL FOR DIAGNOSIS AND TREATMENT 2022-10-14 15:56:36 Doctor Unassigned, [place] [facility] CONSENT/REFUSAL FOR DIAGNOSIS AND TREATMENT 2022-03-12 10:03:12 Doctor Unassigned, [place] [facility] XR CHEST 1 VW 2022-02-20 09:59:00 Christy Holliday [facility] LIPASE 2022-02-20 09:30:00 Christy Holliday [facility] TROPONIN I 2022-02-20 09:30:00 Christy Holliday [facility] COMP. METABOLIC PANEL (97401) 2022-02-20 09:30:00 Christy Holliday [facility] CBC WITH DIFF 2022-02-20 09:30:00 Christy Holliday [facility] N-TERMINAL PRO-BNP 2022-02-20 09:30:00 Christy Holliday [facility] NOTICE OF PRIVACY PRACTICES 2022-02-20 09:15:02 Doctor Unassigned, [place] [facility] CONSENT/REFUSAL FOR DIAGNOSIS AND TREATMENT 2022-02-20 09:14:47 Doctor Unassigned, [place] [facility] Encounters Start Date/Time End Date/Time Encounter Type Admission Type Attending [facility] Care Department Encounter ID Source 2024-04-14 16:30:00 2024-04-14 16:30:00 Outpatient DARIEN LOBO [id number] Maria Elena [facility] 2024-04-12 11:00:00 2024-04-12 11:00:00 Outpatient MINNA ORTA [id number] Maria Elena [facility] 2024-04-12 11:00:00 2024-04-12 11:00:00 Outpatient WENDY BROWNLEE [id number] [facility] 00:00:00 2024-04-12 00:00:00 Outpatient SHARATH HALEY [id number] [facility] 2024-04-05 11:30:00 2024-04-05 11:30:00 Outpatient DARIEN LOBO [id number] [facility]24-[facility]-05 00:00:00 2024-04-05 00:00:00 Outpatient DARIEN LOBO [id number] [facility] 2024-03-28 00:00:00 2024-03-28 00:00:00 Outpatient DARIEN LOBO [id number] Maria Elena [facility] 2024-03-15 08:30:00 2024-03-15 08:30:00 Outpatient WENDY BROWNLEE MARIA ELENA [id number] Maria Elena [facility] 2024-02-17 20:58:00 2024-02-17 21:44:00 Emergency X PEG CAMP [facility] ERT [id number] [facility] 2024-02-17 20:58:00 2024-02-17 21:44:00 Emergency Peg Camp [facility] 1.840.114 350.1.13.10 4.2.7.2.686 [id number] [facility] 2024-02-09 13:10:00 2024-02-09 15:14:00 Emergency URSULA SANTOS [facility] [id number] [facility] 2024-02-08 20:38:00 2024-02-08 21:40:00 Emergency X DEMETRIA DAVENPORT [facility] ERT [id number] [facility] 2024-02-08 20:38:00 2024-02-08 21:40:00 Emergency AuDemetria breen [facility] 1.2.840.114 350.1.13.10 4.2.7.2.686 [id number] [facility] 2024-02-08 14:08:00 2024-02-08 17:06:00 Emergency Christina Villarreal [facility] 1.2.840.114 350.1.13.10 4.2.7.2.686 [id number] [facility] 2024-01-14 04:46:00 2024-01-14 06:23:00 Emergency X JAC NAVARRO [facility] ERT [id number] [facility] 2024-01-14 04:46:00 2024-01-14 06:23:00 Emergency Jac Navarro [facility] 1.2.840.114 350.1.13.10 4.2.7.2.686 [id number] [id number] [facility] 2023-12-22 21:51:00 2023-12-22 23:13:00 Emergency X TYLER ROWE [facility] ERT [id number] [facility] 2023-12-22 21:51:00 2023-12-22 23:13:00 Emergency Tyler Rowe [facility] 1.2.840.114 350.1.13.10 4.2.7.2.686 [id number] 084 [id number] [facility] 2023-12-21 19:36:00 2023-12-21 21:52:00 Emergency X MELINDA MACIEL [facility] ERT [id number] [facility] 2023-12-21 19:36:00 2023-12-21 21:52:00 Emergency Melinda Maciel [facility] 1.2.840.114 350.1.13.10 4.2.7.2.686 [id number] 084 [id number] [facility] 2023-11-10 19:29:00 2023-11-10 20:14:00 Emergency X CHRISTY HOLLIDAY [facility] ERT [id number] [facility] 2023-11-10 19:29:00 2023-11-10 20:14:00 Emergency Christy Holliday [facility] 1.2.840.114 350.1.13.10 4.2.7.2.686 [id number] [id number] [facility] 2023-10-27 00:49:00 2023-10-27 01:41:00 Emergency X JAC NAVARRO [facility] ERT [id number] [facility] 2023-10-27 00:49:00 2023-10-27 01:41:00 Emergency Jac Navarro [facility] 1..840.114 350.1.13.10 4.2.7.2.686 [id number] [id number] [facility] 2023-07-15 00:00:00 2023-07-15 00:00:00 Outpatient DARIEN LOBO [id number] Maria Elena [facility] 2023-06-16 11:30:00 2023-06-16 11:30:00 Outpatient DARIEN LOBO [id number] Maria Elena [facility] 2023-05-18 00:00:00 2023-05-18 00:00:00 Outpatient GROUPMARIA ELENA [id number] [facility] 2022-10-14 10:07:00 2022-10-14 14:39:00 Emergency X MELINDA MACIEL [facility] ERT [id number] [facility] 2022-10-14 10:07:00 2022-10-14 14:39:00 Emergency MacielMelinda [facility] ..840.114 350.1.13.10 4.2.7.2.686 [id number] [id number] [facility] 2022-03-12 05:15:00 2022-03-12 06:41:00 Emergency X CHRISTY HOLLIDAY [facility] ERT [id number] [facility] 2022-03-12 05:15:00 2022-03-12 06:41:00 Emergency Christy Holliday [facility] ..840.114 350.1.13.10 4.2.7.2.686 [id number] 084 [id number] [facility] 2022-02-20 04:17:00 2022-02-20 07:16:00 Emergency X CHRISTY HOLLIDAY [facility] ERT [id number] [facility] 2022-02-20 04:17:00 2022-02-20 07:16:00 Emergency Christy Holliday [facility] 1.2.840.114 350.1.13.10 4.2.7.2.686 [id number] [id number] [facility] 2021-02-03 11:10:00 2021-02-03 11:10:00 Outpatient DENISE CAMPO [facility] [id number] [facility] 2021-01-13 11:20:00 2021-01-13 11:20:00 Outpatient [facility] [id number] [facility] 2020-11-10 08:20:00 2020-11-10 08:20:00 Outpatient KARLEY ESTRADA [facility] [id number] [facility] Results Test Description Test Time Test Comments Results Result Co mments Source [facility] + Lactic [id number] 20:52:47* Test Item Value Reference Range Interpretation Comme nts PH (test code = 2) 7.39 7.35-7.45 PCO2 (test code = 8512891065) 42 35-45 PO2 (test code = 9748600406) 76 80-100 L HCO3 (test code = 3749287729) 25 22-26 BE (test code = 2690861226) -0.1 -3.0-3.0 THB (test code = 8962700320) 14.3 g/dL 13.5-18.0 %O2HB (test code = 3096422889) 85.8 % 94.0-99.0 L %COHB ART (test code = 8801227134) 9.0 % 0.0-1.5 H %METHB ART (test code = 1685412278) 0.3 % 0.4-1.5 L VOL%O2 ART (test code = 7747059133) 17.3 % 15.0-23.0 NA (test code = 5509281753) 140 mmol/L 135-145 K+ (test code = 1054223850) 4.1 mmol/L 3.5-5.0 AC CA IONZ (test code = 4300307499) 4.50 mg/dL 4.50-5.30 GLUCOSE (test code = 5539803641) 105 mg/dL 70-110 LACTIC ACID (test code = 3240930739) 2.60 mmol/L 0.50-2.20 H Lab Interpretation (test cod e = 45394-0) Abnormal [facility] [id number] 20:34:14* Test Item Value Reference Range Interpretation Comme nts TROPONIN I (test code = 6942421520) 0.008 ng/mL <=0.034 LOUISE (test code = [...] of biotin. Lab Interpretation (test code = 86469-4) Normal [facility] Hel-Jlp5289-53-01 20:31:35* Test Item Value Reference Range Interpretation Comme nts NT-proBNP (test code = 58011-2) 188 pg/mL <=125 LOUISE (test code = LOUISE) Result Indeterminate-Consid er causes of NT-proBNP elevation other than Heart failure such as acute coronary syndrome, pulmonary embolism, pulmonary hypertension, sepsis, stroke, and renal dysfunction. Lab Interpretation (test code = 10076-5) Abnormal [facility] System[facility]. Metabolic Panel (03843)2024-02-08 20:21:10* Test Item Value Reference Range Interpretation Comme nts NA (test code = 3852707859) 135 mmol/L 135-145 K (test code = 3099501247) 4.5 mmol/L 3.5-5.0 CL (test code = 4830141892) 100 mmol/L 98-108 CO2 TOTAL (test code = 1861142787) 22 mmol/L 23-31 L AGAP (test code = 4167083398) 13 2-16 BUN (test code = 7453011781) 8 mg/dL 7-23 GLUCOSE (test code = 9321736224) 97 mg/dL 70-110 CREATININE (test code = 2160-0) 0.65 mg/dL 0.60-1.25 TOTAL BILI (test code = 5204077966) 0.4 mg/dL 0.1-1.1 CALCIUM (test code = 0312875726) 9.4 mg/dL 8.6-10.6 T PROTEIN (test code = 0635584629) 8.2 g/dL 6.3-8.2 ALBUMIN (test code = 7460025680) 4.7 g/dL 3.5-5.0 ALK PHOS (test code = 5299928722) 76 U/L 34-122 ALTv (test code = 1742-6) 33 U/L 5-50 AST(SGOT) (test code = 3150221819) 54 U/L 13-40 H eGFR (test code = 51202-7) 111.3 mL/min/1.73m2 CKD-EPI eGFR (2020). Assuming creatinine has been stable day-to-day for at least three months, the eGFR indicates Category G1 (>= 90 mL/min/1.73 m2) Lab Interpretation (test code = 52665-0) Abnormal [facility] SystemMagnesium2024-04-01 20:21:10* Test Item Value Reference Range Interpretation Comme nts MAGNESIUM (test code = 5830932565) 2.1 mg/dL 1.7-2.4 Lab Interpretation (test cod e = 95616-7) Normal [facility] CHEST 1 [id number] 20:07:21EXAM: XR CHEST 1 VW COMPARISON: 01/14/2024 HISTORY: sob FINDINGS: Lungs: Slightly hyperexpanded lungswith subtle progression of interstitialprominence. Trace pleural effusions could be present. Heart/Mediastinum: Stable cardiomegaly. Bones and soft tissues: No osseous abnormality is visualized.[facility] Cbc with [id number] 20:04:26* Test Item Value Reference Range Interpretation [...] 33.8 g/dL 31.2-35.0 RDW-SD (test code = 53314-9) 50.5 fL 38.5-51.6 RDW-CV (test code = 788-0) 14.3 % 12.1-15.4 PLT (test code = 777-3) 206 150-328 MPV (test code = 57835-6) 9.1 fL 9.8-13.0 L NRBC/100 WBC (test code = 6479385062) 0.0 0.0-10.0 NRBC x10^3 (test code = 5955089817) See_Comment [Automated [employer]] The system which generated this result transmitted reference range: 10*3/?L. The reference range was not used to interpret this result as normal/abnormal. GRAN MAT (NEUT) % (test code = 770-8) 81.0 % IMM GRAN % (test code = 1363482974) 1.20 % LYMPH % (test code = 736-9) 10.9 % MONO % (test code = 5905-5) 6.8 % EOS % (test code = 713-8) 0.0 % BASO % (test code = 706-2) 0.1 % GRAN MAT x10^3(ANC) (test code = 3720814594) 9.31 10*3/uL 1.99-6.95 H IMM GRAN x10^3 (test code = 8487479210) 0.14 10*3/uL 0.00-0.06 H LYMPH x10^3 (test code = 731-0) 1.25 10*3/uL 1.09-3.23 MONO x10^3 (test code = 742-7) 0.78 10*3/uL 0.36-1.02 EOS x10^3 (test code = 711-2) 0.06-0.53 L BASO x10^3 (test code = 704-7) 0.01-0.09 Lab Interpretation (test code = 71806-0) Abnormal [facility] System[facility]. METABOLIC PANEL (44333)2023-12-23 04:53:26* Test Item Value Reference Range Interpretation Comme nts NA (test code = 6946620080) 135 mmol/L 135-145 K (test code = 0419520788) 3.2 mmol/L 3.5-5.0 L CL (test code = 1689214030) 104 mmol/L 98-108 CO2 TOTAL (test code = 2223297737) 23 mmol/L 23-31 AGAP (test code = 1853935773) 8 2-16 BUN (test code = 4668442509) 11 mg/dL 7-23 GLUCOSE (test code = 1981571546) 82 mg/dL 70-110 CREATININE (test code = 2160-0) 0.64 mg/dL 0.60-1.25 TOTAL BILI (test code = 6446588925) 0.5 mg/dL 0.1-1.1 CALCIUM (test code = 2255521390) 8.8 mg/dL 8.6-10.6 T PROTEIN (test code = 0701697812) 6.7 g/dL 6.3-8.2 ALBUMIN (test code = 0303766805) 4.1 g/dL 3.5-5.0 ALK PHOS (test code = 7988651575) 46 U/L 34-122 ALTv (test code = 1742-6) 21 U/L 5-50 AST(SGOT) (test code = 5288521038) 43 U/L 13-40 H eGFR (test code = 58217-2) 111.8 mL/min/1.73m2 CKD-EPI eGFR (2020). Assuming creatinine has been stable day-to-day for at least three months, the eGFR indicates Category G1 (>= 90 mL/min/1.73 m2) Lab Interpretation (test code = 68806-3) Abnormal [facility] System[facility]2024-02-14 04:53:26* Test Item Value Reference Range Interpretation Comme nts LIPASE (test code = 8960185857) 105 U/L 0-220 Lab Interpretation (test cod e = 72854-7) Normal [facility] SystemCBC WITH [id number] 04:34:24* Test Item Value Reference Range Interpretation [...] 33.0 g/dL 31.2-35.0 RDW-SD (test code = 45755-8) 50.9 fL 38.5-51.6 RDW-CV (test code = 788-0) 13.7 % 12.1-15.4 PLT (test code = 777-3) 232 150-328 MPV (test code = 35587-3) 8.7 fL 9.8-13.0 L NRBC/100 WBC (test code = 1086028031) 0.0 0.0-10.0 NRBC x10^3 (test code = 8078542535) See_Comment [Automated messa ge] The system which generated this result transmitted reference range: 10*3/?L. The reference range was not used to interpret this result as normal/abnormal. GRAN MAT (NEUT) % (test code = 770-8) 58.8 % IMM GRAN % (test code = 8650054693) 0.90 % LYMPH % (test code = 736-9) 27.8 % MONO % (test code = 5905-5) 10.5 % EOS % (test code = 713-8) 1.3 % BASO % (test code = 706-2) 0.7 % GRAN MAT x10^3(ANC) (test code = 7550144450) 5.68 10*3/uL 1.99-6.95 IMM GRAN x10^3 (test code = 1510677069) 0.09 10*3/uL 0.00-0.06 H LYMPH x10^3 (test code = 731-0) 2.69 10*3/uL 1.09-3.23 MONO x10^3 (test code = 742-7) 1.02 10*3/uL 0.36-1.02 EOS x10^3 (test code = 711-2) 0.13 10*3/uL 0.06-0.53 BASO x10^3 (test code = 704-7) 0.07 10*3/uL 0.01-0.09 Lab Interpretation (test code = 11589-2) Abnormal [facility] W [id number] 03:32:43Exam: CT Abdomen and Pelvis With Contrast, [...] acute osseous abnormality.Soft tissues: Small fat-containing inguinal hernias.[facility] SystemEthanol2024-02-13 02:32:24* Test Item Value Reference Range Interpretation Comme nts ALCOHOL (test code = 1015712428) 117 mg/dL LOUISE (test code = LOUISE) <10 Boifngkn04-257 Toxic>100 Depression of HOMEOPATHIC DOCTOR>400 Fatalities Reported [facility] SystemComp. Metabolic Panel (58405)2023-12-22 02:31:43* Test Item Value Reference Range Interpretation Comme nts NA (test code = 6661365448) 133 mmol/L 135-145 L K (test code = 6602550931) 3.3 mmol/L 3.5-5.0 L CL (test code = 7046384307) 102 mmol/L 98-108 CO2 TOTAL (test code = 7671885986) 25 mmol/L 23-31 AGAP (test code = 8937186051) 6 2-16 BUN (test code = 6751573979) 11 mg/dL 7-23 GLUCOSE (test code = 8864619268) 75 mg/dL 70-110 CREATININE (test code = 6779666732) 0.51 mg/dL 0.60-1.25 L TOTAL BILI (test code = 9790896562) 0.5 mg/dL 0.1-1.1 CALCIUM (test code = 9911626012) 8.9 mg/dL 8.6-10.6 T PROTEIN (test code = 6729238767) 7.2 g/dL 6.3-8.2 ALBUMIN (test code = 3651195812) 4.5 g/dL 3.5-5.0 ALK PHOS (test code = 9841422227) 46 U/L 34-122 ALTv (test code = 1742-6) 15 U/L 5-50 AST(SGOT) (test code = 1805130624) 24 U/L 13-40 eGFR (test code = 78625-3) 119.7 mL/min/1.73m2 CKD-EPI eGFR (2020). Assuming creatinine has been stable day-to-day for at least three months, the eGFR indicates Category G1 (>= 90 mL/min/1.73 m2) Lab Interpretation (test code = 71426-0) Abnormal [facility] SystemLipase2024-02-13 02:31:43* Test Item Value Reference Range Interpretation Comme nts LIPASE (test code = 4583562226) 121 U/L 0-220 Lab Interpretation (test cod e = 89945-0) Normal [facility] SystemProthrombin Time / [id number] 02:21:02* Test Item Value Reference Range Interpretation Comme nts PROTIME PATIENT (test code = 5964-2) 10.5 10.1-12.6 INR (test code = 6301-6) 0.9 Normal INR <1.1; Warfarin Therapeutic range 2.0 to 3.0 or 2.5 to 3.5, depending upon the indications. Lab Interpretation (test code = 22886-1) Normal [facility] SystemCbc with Moae9261-83-41 02:14:04* Test Item Value Reference Range Interpretation [...] 34.0 g/dL 31.2-35.0 RDW-SD (test code = 42002-4) 49.1 fL 38.5-51.6 RDW-CV (test code = 788-0) 13.5 % 12.1-15.4 PLT (test code = 777-3) 260 150-328 MPV (test code = 54093-7) 8.7 fL 9.8-13.0 L NRBC/100 WBC (test code = 2047333023) 0.0 0.0-10.0 NRBC x10^3 (test code = 0443913015) See_Comment [Automated messa ge] The system which generated this result transmitted reference range: 10*3/?L. The reference range was not used to interpret this result as normal/abnormal. GRAN MAT (NEUT) % (test code = 770-8) 64.3 % IMM GRAN % (test code = 9161942072) 0.90 % LYMPH % (test code = 736-9) 24.2 % MONO % (test code = 5905-5) 9.1 % EOS % (test code = 713-8) 0.7 % BASO % (test code = 706-2) 0.8 % GRAN MAT x10^3(ANC) (test code = 4458159428) 8.73 10*3/uL 1.99-6.95 H IMM GRAN x10^3 (test code = 0302200002) 0.12 10*3/uL 0.00-0.06 H LYMPH x10^3 (test code = 731-0) 3.28 10*3/uL 1.09-3.23 H MONO x10^3 (test code = 742-7) 1.23 10*3/uL 0.36-1.02 H EOS x10^3 (test code = 711-2) 0.10 10*3/uL 0.06-0.53 BASO x10^3 (test code = 704-7) 0.11 10*3/uL 0.01-0.09 H Lab Interpretation (test code = 98268-4) Abnormal [facility] SystemSHARIREG[facility] FLORENCENOHEMY [id number] 10:16:22* Test Item Value Reference Range Interpretation Comments TROPONIN I (test code = 1701139230) 0.007 ng/mL See_Comment [Automated message] The system [...] of biotin. Lab Interpretation (test code = 32053-3) Normal [facility] SystemN-TERMINAL [id number]-[id number] 10:13:01* Test Item Value Reference Range Interpretation Comme nts NT-proBNP (test code = 4749397639) 52 pg/mL See_Comment [Automated message] The system which generated this result transmitted reference range: <=125. The reference range was not used to interpret this result as normal/abnormal. LOUISE (test code = LOUISE) Biotin has been reported to cause a negative bias, interpret results relative to patient's use of biotin. Lab Interpretation (test code = 56913-9) Normal [facility] SystemCOMP. METABOLIC PANEL (50571)2022-02-20 10:04:02* Test Item Value Reference Range Interpretation Comme nts NA (test code = 7350020272) 137 mmol/L 135-145 K (test code = 3590205359) 3.6 mmol/L 3.5-5.0 CL (test code = 5802241985) 99 mmol/L 98-108 CO2 TOTAL (test code = 5914026983) 25 mmol/L 23-31 AGAP (test code = 3500947337) 2-16 BUN (test code = 3379576233) 6 mg/dL 7-23 L GLUCOSE (test code = 9494308668) 88 mg/dL 70-110 CREATININE (test code = 2929602060) 0.55 mg/dL 0.60-1.25 L TOTAL BILI (test code = 5363149618) 0.8 mg/dL 0.1-1.1 CALCIUM (test code = 1553122247) 8.9 mg/dL 8.6-10.6 T PROTEIN (test code = 5895720334) 7.5 g/dL 6.3-8.2 ALBUMIN (test code = 8387394361) 4.8 g/dL 3.5-5.0 ALK PHOS (test code = 4217383725) 113 U/L 34-122 ALTv (test code = 1742-6) 84 U/L 5-50 H AST(SGOT) (test code = 8152915044) 107 U/L 13-40 H eGFR (test code = 7920626234) mL/min/1.73m2 LOUISE (test code = LOUISE) Association [...] imaging tests). Lab Interpretation (test code = 41074-0) Abnormal [facility] SystemLIP[facility], [id number] 10:03:21* Test Item Value Reference Range Interpretation Comme nts LIPASE (test code = 7189432785) 193 U/L 0-220 Lab Interpretation (test cod e = 17491-9) Normal [facility] SystemCB WITH [id number] 09:39:17* Test Item Value Reference Range Interpretation Comme nts WBC (test code = 6690-2) See_Comment [Automated [employer]] The system which generated this result transmitted [...] g/dL 31.2-35.0 H RDW-SD (test code = 51616-1) 44.4 fL 38.5-51.6 RDW-CV (test code = 788-0) 11.9 % 12.1-15.4 L PLT (test code = 777-3) See_Comment [Automated [employer]] The system which generated this result transmitted reference range: 150 - 328 10*3/?L. The reference range was not used to interpret this result as normal/abnormal. MPV (test code = 59458-9) 9.2 fL 9.8-13.0 L NRBC/100 WBC (test code = 3588251081) See_Comment [Automated [employer]] The system which generated this result transmitted reference range: 0.0 - 10.0 /100 WBCs. The reference range was not used to interpret this result as normal/abnormal. NRBC x10^3 (test code = 5904453822) <0.01 See_Comment [Automated messa ge] The system which generated this result transmitted reference range: 10*3/?L. The reference range was not used to interpret this result as normal/abnormal. GRAN MAT (NEUT) % (test code = 770-8) 69.9 % IMM GRAN % (test code = 7361857361) 1.50 % LYMPH % (test code = 736-9) 18.9 % MONO % (test code = 5905-5) 7.0 % EOS % (test code = 713-8) 1.9 % BASO % (test code = 706-2) 0.8 % GRAN MAT x10^3(ANC) (test code = 1313209922) 7.15 10*3/uL 1.99-6.95 H IMM GRAN x10^3 (test code = 4901186322) 0.15 10*3/uL 0.00-0.06 H LYMPH x10^3 (test code = 731-0) 1.93 10*3/uL 1.09-3.23 MONO x10^3 (test code = 742-7) 0.72 10*3/uL 0.36-1.02 EOS x10^3 (test code = 711-2) 0.19 10*3/uL 0.06-0.53 BASO x10^3 (test code = 704-7) 0.08 10*3/uL 0.01-0.09 Lab Interpretation (test code = 15041-6) Abnormal [facility] Notes Date/Time Note Provider Source 2024-02-17 21:43:52 8410-77-67U58:43:52F ormatting of this note might be different from the original.No answer in lobby. 84749-4Hlvxifpmv department CljcYL9243-04-07E55:44:07[facility] NoteTXT1.2.840.029761.1.13.104.2.7 .2.959570|[id number] for patient dvpj55198-1HdxfEUTXVXUNRRSYzxxrsat d C-CDA narrative [id number] J Hoot RNUT[address] Sw[id number] 45ELZPUXRZHJCLVWPJMVYTTR7405-88-39 T21:44:071.2.840.089169.1.72.3.15| 1.2.840.695401.1.13.104.2.7.2.7278 79_[id number] Angy Turner RN [facility] 2024-02-17 21:42:10 0735-04-27L71:42:10F ormatting of this note might be different from the original.Pt's blood pressure cuff and pulse ox found lying on chair. Called for patient in lobby 2 times, no answer. No one in lobby. 18765-8Cxxlcpvvu department SjfvJL5732-85-49P16:44:10[facility] NoteTXT1.2.840.563388.1.13.104.2.7 .2.201277|[id number] for patient omyt71565-2LlkdDYSOMGSFTYSLddioade d C-CDA narrative [id number] A. Campbell [id number] 77PQNTIHPQHZEWDBEEXBWMXE3032-37-43 T21:44:101.2.840.434975.1.72.3.15| 1.2.840.416059.1.13.104.2.7.2.7278 79_[id number] Sierra Samaniego RN [facility] 2024-02-17 21:41:09 9966-98-04Y20:41:09F ormatting of this note might be different from the original.Pt not in lobby or in room. No answer in lobby. 63505-5Mwndwqfvc department OmucWT0563-42-48W10:41:40[facility] NoteTXT1.2.840.703280.1.13.104.2.7 .2.663268|[id number] for patient ztfy61993-5ZglrIFAUKYWPYGVMntnsifo d C-CDA narrative text[id number] 42AGBQPVVOJDNRSWRYCXQPFB1147-29-91 T21:41:401.2.840.729642.1.72.3.15| 1.2.840.338537.1.13.104.2.7.2.7278 79_[id number] [facility] 2024-02-17 21:14:29 9002-77-72Y19:14:29F ormatting of this note might be different from the original.Pt not in FT01-01 and no answer in lobby. 84529-6Ngwadodfd department IykbHP7208-11-62E80:15:32[facility] NoteTXT1.2.840.781417.1.13.104.2.7 .2.456270|[id number] for patient rhpt46291-3XgsuTXSVFTSEFEADvuqsazz d C-CDA narrative text[id number] 05HZRCSONPJISBZNVSNUJTOT2814-12-14 T21:15:321.2.840.212336.1.72.3.15| 1.2.840.861289.1.13.104.2.7.2.7278 [id number] [facility] 2024-02-17 20:48:50 8966-21-75L88:48:50F ormatting of this note might be different from the original.Pt arrives ambulatory to ED c/o SOB, right upper abdominal pain, and left leg and hip pain. Pt states that he has been on prednisone for about 5 yrs which had given him osteoporosis which is causing his leg pain. Reports hx of COPD, o2 is generally @ 91 he says. 38848-9Icaufkncj department Triage jeflAL9612-02-92L13:53:54[facility] department Triage noteTXT1.2.840.861390.1.13.104.2.7 .2.492647|[id number] for patient myba99814-1Kgtoaydhz department NoteLNNARRATIVEFormatted C-CDA narrative [id number] L Dl RN[address]TXTX[address] 57RTVHWBQHVGPXLNIYAIHNFE1369-28-73 T20:53:541.2.840.994060.1.72.3.15| 1.2.840.084125.1.13.104.2.7.2.7278 [id number] Leah Quarles Dl MACHUCA [facility] 2024-02-08 21:37:56 3809-73-83A88:37:56F ormatting of this note might be different from the original.Pt left AMA 93171-3Upwvvwyjt department PpttOI0832-14-32T58:38:11[facility] department NoteTXT1.2.840.686851.1.13.104.2.7 .2.313196|[id number] for patient tria12659-3ObwzPKMJGMTJXLBNpzbkctu d C-CDA narrative [id number] M Martinez RN[id number] 13WBKKYHXCDXUANSZADVKDLA4832-83-05 T21:38:111.2.840.581844.1.72.3.15| 1.2.840.414733.1.13.104.2.7.2.7278 [id number] Kylie Foster RN [facility] 2024-02-08 21:32:00 6898-60-54N82:32:00F ormatting of this note might be different [...] ambulatory with steady [place], [place] 69766-3Mstafiuoa department FmmoNS3251-21-15E44:40:32[facility] department NoteTXT1.2.840.205926.1.13.104.2.7 .2.497770|[id number] for patient wzds54911-5RhqpNOURAYUBEUDPvnuchde d C-CDA narrative text[address]TXTX[address] 84OXXKDZMXYNIRVMOFAGBHKW9485-18-20 T21:40:321.2.840.733998.1.72.3.15| 1.2.840.843038.1.13.104.2.7.2.7278 [id number] [facility] 2024-02-08 20:54:38 4270-77-56D31:54:38F ormatting of this note might be different from the original.Pt states he uses O2 at home, portable O2 is broken [address]294-7Wpuonsxvh[address] [place] [address] WmzuMA4424-95-06H05:55:13[facility] department NoteTXT1.2.840.642139.1.13.104.2.7 .2.222109|[id number] for patient boes75338-7WekhHFGSBBHBCCTByvbxjsw d C-CDA narrative text[address]TXTX[address] 18BONYBSYGPZPWNCUEGDHSXU8000-48-79 T20:55:131.2.840.586779.1.72.3.15| 1.2.840.554502.1.13.104.2.7.2.7278 [id number] [facility] 2024-02-08 20:51:11 6101-12-41P95:51:11F ormatting of this note might be different from the original.Pt ambulates with cane 06992-5Ncnyrceky department EqnfSE1795-26-61A80:51:26[facility] department NoteTXT1.2.840.704961.1.13.104.2.7 .2.610582|[id number] for patient jozp27994-1VpgjSAIHQCHIODQAqdmgiqz d C-CDA narrative text[address] PqpuWpliqzapmNutkgyptdCIIH66061578 12FBXJXSUUIVVSVQRRSAZREZ6003-99-82 T20:51:261.2.840.205999.1.72.3.15| 1.2.840.233032.1.13.104.2.7.2.7278 [id number] [facility] 2024-02-08 20:43:13 2626-41-09S80:43:13F ormatting of this note might be different from the original.CC: Pt arrives SOB after leaving ADA earlier in the shift. He reports he [...] 3 BC powders and drank 3 beers." 77695-5Cabfuqznf department Triage etqyUC1592-37-15E38:48:36[facility] department Triage noteTXT1.2.840.045509.1.13.104.2.7 .2.898481|[id number] for patient djnk82136-2Urxxovabx department NoteLNNARRATIVEFormatted C-CDA narrative [id number] Sarika King RN[address]TXTX[address] 60UPUNCVENBSUBBVZCZYULQO2539-01-55 T20:48:361.2.840.261192.1.72.3.15| 1.2.840.243558.1.13.104.2.7.2.7278 [id number] Leah Sarika King RN [facility] 2024-02-08 17:04:05 1656-59-33Y23:04:05F ormatting of this note might be different [...] of the department with a steady gait. 00563-4Bereowtqn department GivrUN6833-59-79E04:05:22[facility] department NoteTXT1.2.840.330016.1.13.104.2.7 .2.838001|[id number] for patient wbia20029-9HpesROAFXKHRROANcpbgdiw d C-CDA narrative oiiv127540845Pybf M Hayes RN[id number] 29EUXZYOYREKPBZAXANMQXMF6076-46-63 T17:05:221.2.840.248489.1.72.3.15| 1.2.840.222002.1.13.104.2.7.2.7278 [id number] Allison Zhang RN [facility] 2024-02-08 14:23:02 8127-43-86D14:23:02F ormatting of this note might be different from the original.Pt ambulates with a cane 04624-4Olisiuwzz department TcxjZB9422-00-21C42:23:12[facility] department NoteTXT1.2.840.247361.1.13.104.2.7 .2.613884|[id number] for patient zmxn02821-7VrujIMGTHTFRDZSTfmklpjy d C-CDA narrative [id number] Foster RN[address] EsfcFkuuccyekSdpzrzpyyCIHT97772551 84SEIFCOMFTDYZRJDPICDBBM4102-58-37 T14:23:121.2.840.068012.1.72.3.15| 1.2.840.093613.1.13.104.2.7.2.7278 [id number] Kylie Foster RN [facility] 2024-02-08 14:13:15 9066-88-13S77:13:15F ormatting of this note might be different [...] only thing that helps." Face is flushed. 41358-0Llgrccnwt department Triage rcxcGX2697-53-38I24:17:26[facility] department Triage noteTXT1.2.840.437123.1.13.104.2.7 .2.188924|[id number] for patient xwex58787-9Ibjqitrzr department NoteLNNARRATIVEFormatted C-CDA narrative [id number] Fizurdo MACHUCAUT[address]TXTX[address] 01FDJWEWWEWOEWCORYLPGIVQ5667-17-53 T14:17:261.2.840.481996.1.72.3.15| 1.2.840.004398.1.13.104.2.7.2.7278 [id number] Hali Traci RN [facility] 2024-01-14 06:16:25 9926-29-95C81:16:25F ormatting of this note might be different [...] w/d, pt leaving in no apparent distress, 37257-2Icihphyll department VwdxSY5773-04-58Q17:17:20[facility] NoteTXT1.2.840.439921.1.13.104.2.7 .2.497231|[id number] for patient gkia93710-1CjruULUZKRUGWEUWglembyv d C-CDA narrative text[address]TXTX[address] 32SAGNWNSXNHEWJJALGZXEIK9675-45-40 T06:17:201.2.840.138548.1.72.3.15| 1.2.840.546710.1.13.104.2.7.2.7278 [id number] [facility] 2024-01-14 04:49:43 8540-83-58N50:49:43F ormatting of this note might be different [...] ext without difficulty, amb with steady gait 03913-1Kgncqekin department Triage sdtyHU6482-84-42L19:55:49[facility] department Triage noteTXT1.2.840.493370.1.13.104.2.7 .2.536370|[id number] for patient effl25576-6Wahmekhkw department NoteLNNARRATIVEFormatted C-CDA narrative [id number] R Shehadeh RN[address] EcjmPpijxuqmxNwfbfpscsZVHL40190302 25RXCXYCUXKUPEXHHPIJOWJY1198-59-23 T04:55:491.2.840.911913.1.72.3.15| 1.2.840.065127.1.13.104.2.7.2.7278 [id number] Leah King RN [facility] 2024-01-14 04:43:00 8357-12-78Z63:43:00A ssociated Order(s): EKG-12 Lead ROUTINE ONCEPre-Procedure Diagnose(s): Chest pain, unspecified typePost-Procedure Diagnose(s): Chest pain, unspecified type [facility] Emergency Department NotePatient Name: Randy BrionesDate of : 1970 53 year old maleTreatment Room: TX1/BD8Vjhdeek Record Number: [id number] Care Physician: Adrianna King Escorted by: Family [5]Mode of Arrival: Personal means [1]EMS Treatment Prior to ED Arrival:[employer] treatment: NTGPTA treatment comments: 0.4 mg SL taken [employer] HAND, no releifTravel and Exposure Screening:SymptomsDoes patient have [...] Resident: Max Nur Results:Lab ResultsCOMP. METABOLIC PANEL (98598) - AbnormalResult Value Ref RangeNA 138 135 [...] 49 (*) 13 - 40 U/LeGFR 93.3 mL/min/1.52n5FYI WITH DIFF - AbnormalWBC 11.59 (*) 4.20 [...] 220 U/LCOVID-19 (ID NOW RAPID TESTING) - QbdpixVZSI-PuH-4 Rapid ID NOW Not Detected Not DetectedETHANOLALCOHOL 62 mg/dLEKG:If EKG completed, see Procedure Note.Orders and Treatments:Orders Placed This EncounterProcedures XR CHEST 1 VW TROPONIN I COMP. METABOLIC PANEL (27834) LIPASE, SERUM CBC WITH DIFF N-Terminal Pro-Bnp Ethanol COVID-19 (ID NOW TESTING) Lab Only COVID Interpretation O2 Per ProtocolOrders Placed This EncounterMedications morpHINE (4 mg/mL) injection 4 mg ondansetron (ZOFRAN (PF)) injection 4 mg ipratropium-albuteroL (DUONEB) 0.5 mg-3 mg(2.5 mg base)/3 mL nebulizer solution 3 mLFirst Provider Eval:ED EventsDate/Time Event User Udwawqrd35/07/24 0510 Medical Screening Begins JAC NAVARRO MD --01/14/24 0510 First Provider Evaluation JAC NAVARRO MD --ED COURSEDiagnosis/Impression as of 01/14/24 0605Chest pain, unspecified typeBronchitisProcedures:EKG-12 Lead ROUTINE ONCEDate/Time: 01/14/2024 5:24 AMPerformed by: Jac Navarro MDAuthorized by: Jac Navarro MDECYovani interpreted by ED Physician in the absence of a fan mail editor: yesPrevious ECG:Previous ECG: Compared to currentSimilarity: No [...] on fileFollow-up:Electronically signed by:Jac Navarro MD01/14/24 0600 09624-0Lkqnxkylq Emergency department MzjhIK6032-21-80K33:00:50Physician Emergency department NoteTXT1.2.840.180477.1.13.104.2.7 .2.000324|[id number] for patient zutq00575-7Aguvoehbu department NoteLNNARRATIVEFormatted C-CDA narrative textUT[address] StreetMdsnCgooqmhspTwqyukpwgNEJT15375688 17VEPEOAVRKAKGZVDWEAHEVX0386-61-50 T06:00:501.2.840.046995.1.72.3.15| 1.2.840.403857.1.13.104.2.7.2.7278 [id number] [facility] 2023-12-22 23:12:16 6258-71-26K43:12:16F ormatting of this note might be different [...] with steady gait, in no apparent distress, 84676-6Bfzdvjyjh department PnslXV2700-24-39N09:13:50[facility] department NoteTXT1.2.840.538270.1.13.104.2.7 .2.568648|[id number] for patient erpw76186-1ShecTCGNKYKDPEOCmikqyud d C-CDA narrative [id number] Magaña RN[address]TXTX[address] 19MOXPWUBWGRETXBBEFQWIBJ9152-16-66 T23:13:501.2.840.945698.1.72.3.15| 1.2.840.430109.1.13.104.2.7.2.7278 [id number] Mary Magaña RN [facility] 2023-12-22 21:41:55 4264-91-49X62:41:55F ormatting of this note might be different from the original.Pt arrives ambulatory to ED reporting bleeding with stools and 10/10 abdominal pain. States he was here last night but had to leave before receiving results d/t having to work. Says the pain became worse so he came back in. 62438-8Tforsusen department Triage lhidUX3578-70-09N93:48:52[facility] department Triage noteTXT1.2.840.362755.1.13.104.2.7 .2.666772|[id number] for patient fczb00667-7Myjiuihdc department NoteLNNARRATIVEFormatted C-CDA narrative [id number] L Williams RN[address]TXTX[address] 40NJQJTQFUAKFYYFTLTVPXKB4995-73-33 T21:48:521.2.840.484371.1.72.3.15| 1.2.840.430168.1.13.104.2.7.2.7278 [id number] Leah Lizama RN [facility] 2023-12-21 21:31:00 2880-14-16Q81:31:00F ormatting of this note might be different [...] with steady gait, appears in no distress. 42965-2Yqykxhxzl department ZdxnIH3022-67-23F83:38:39[facility] department NoteTXT1.2.840.487036.1.13.104.2.7 .2.570354|[id number] for patient aahf50852-2KfqvKGPMMOLMZQKWcylupyt d C-CDA narrative givs514153553ChtctMary Magaña RN[address]vdGalvestonGalvestonTXTX[address] 36IMWNNXWLEPTHUUEOZOEZXE7034-60-26 T21:38:391.2.840.498957.1.72.3.15| 1.2.840.880481.1.13.104.2.7.2.7278 [id number] Mary Magaña RN [facility] 2023-12-21 21:30:00 0230-55-98A84:30:00F ormatting of this note might be different from the original.Pt wished to leave AMA. Pt states " yall were wonderful but 3am come real early." 70274-3Kplxvuvae department SjtlHY9577-29-52G08:36:58[facility] NoteTXT1.2.840.995164.1.13.104.2.7 .2.282360|[id number] for patient dien26548-9CfopDDZKXHALPDTBessbhxs d C-CDA narrative text[address]TXTX[address] 03FHFXVZUQDYSDIJYBGKDCSY5284-08-93 T21:36:581.2.840.457361.1.72.3.15| 1.2.840.138580.1.13.104.2.7.2.7278 [id number] [facility] 2023-12-21 21:26:22 1808-65-89A32:26:22F ormatting of this note might be different from the original.Pt asking to go outside and smoke, wants to go home and eat. Pt educated on risks of leaving AMA. Provider informed pt is in pain. [address] LyvuZC5475-69-36L14:33:35[facility] NoteTXT1.2.840.097294.1.13.104.2.7 .2.543232|[id number] for patient gvmd31322-1SetiRTHUNVEKJYKNsozamxi d C-CDA narrative [id number] BRADFORD[address]TXTX[address] 19QMQIASRKHQMSFKQUQMLPRO9998-58-27 T21:33:351.2.840.129968.1.72.3.15| 1.2.840.608537.1.13.104.2.7.2.7278 [id number] Leah King RN [facility] 2023-12-21 19:31:50 9621-40-30A24:31:50F ormatting of this note might be different from the original.Pt arrived ambulatory with complaints of bright red rectal bleeding and generalized abdominal pain this afternoon. Pt states his stool was normal consistency but continuous bright red blood. Denies this happening before.Pt is an alcoholic, had 2 beer [employer] HAND. States he vomits all the time but not something new today. 58690-4Aagckgyzc department Triage yuhlIC1553-07-91C60:33:28[facility] department Triage noteTXT1.2.840.291295.1.13.104.2.7 .2.438688|[id number] for patient axjw07339-1Ktlyyiokz[address] [place] [address] NoteLNNARRATIVEFormatted C-CDA narrative [id number] D Roman RN[address]vdGalvestonGalvestonTXTX[address] 10PWHBIPCVBQEWTMOJKKQCRK2423-75-58 T19:33:281.2.840.334706.1.72.3.15| 1.2.840.922699.1.13.104.2.7.2.7278 79_[id number] Gabi Esqueda RN [facility] 2023-11-10 20:13:39 0344-09-98M19:13:39F ormatting of this note might be different from the original.Pt requesting to leave AMA. ERP notified. Pt counseled to remain, risks of leaving AMA including discussed with pt. Pt continued to decline further ER evaluation at this time. AMA papers signed, witnessed, and placed on patient's chart. Pt left ambulatory. VS stable, no ataxia noted, GCS 15, A&Ox4. 13314-3Ugrbrvufu department QonzLK0489-63-28M44:13:52[facility] department NoteTXT1.2.840.049672.1.13.104.2.7 .2.559110|[id number] for patient hhtq46931-0ThnoANUFTZFWTACVyeqqsiw d C-CDA narrative [id number] Medrano RN[address]TXTX[address] 04YCIWRFDDKLTYWUYRGQQUOG0616-94-22 T20:13:521.2.840.745023.1.72.3.15| 1.2.840.369188.1.13.104.2.7.2.7278 [id number] Briseida Medrano RN [facility] 2023-11-10 19:30:29 9528-42-69X47:30:29F ormatting of this note might be different from the original.Patient arrived to ED c/o SOB and COPD exacerbation. Symptoms started this morning. Patient wears 3L NC at home. Patient is a smoker. Patient states having the chills, diarrhea, and vomiting. States having sharp pains in chest from coughing. 99205-5Zgzzaaoau department Triage xjbzUE3630-40-71L40:35:27[facility] department Triage noteTXT1.2.840.428712.1.13.104.2.7 .2.751990|[id number] for patient zcui03812-4Ybtidwfbs department NoteLNNARRATIVEFormatted C-CDA narrative [id number]-Pxxxa McInnis RN[address]TXTX[address] 33BOJKSBCBCUJTPCPISYBKZK1041-76-69 T19:35:271.2.840.601456.1.72.3.15| 1.2.840.333333.1.13.104.2.7.2.7278 [id number] Sreedhar Gomez RN [facility]
--- NOTE | 2024-05-05 03:22 | ER ---
Nurse's Notes [facility] Name: Randy Briones Age: 53 yrs Sex: Male : 1970 Arrival Date: 05/05/2024 Time: 02:57 Bed 4 Private MD: Diagnosis: Chronic shortness of breath, COPD Presentation: 05/05 03:06 Chief complaint: Patient states: shortness of breath 1 hr [employer]. Coronavirus screen: rg5 Client denies travel out of the [place] in the last 14 days. Ebola Screen: Patient negative for fever greater than or equal to 101.5 degrees Fahrenheit, and additional compatible Ebola Virus Disease symptoms. Initial Sepsis Screen: Does the patient meet any 2 criteria? No. Patient's initial sepsis screen is negative. Does the patient have a suspected source of infection? No. Patient's initial sepsis screen is negative. Risk Assessment: Do you want to hurt yourself or someone else? Patient reports no desire to harm self or others. Onset of symptoms was May 05, 2024. 03:06 Method Of Arrival: EMS: [facility] rg5 03:06 Acuity: CANDACE 3 rg5 Triage Assessment: 03:14 General: Appears uncomfortable, Behavior is cooperative, appropriate for age. Pain: rg5 Complains of pain in chest Quality of pain is described as aching. Historical: - Allergies: 03:14 Lisinopril; rg5 - PMHx: 03:14 COPD; Alcoholism; home 02 3LNC PRN; Hepatitis B (Hypertension); Osteoporosis; rg5 Hypertension; - PSHx: 03:14 Amputation of left index finger; rg5 - Immunization history:: Adult Immunizations up to date. - Infectious Disease History:: Denies. - Social history:: Smoking status: Patient reports the use of cigarette tobacco products, smokes one pack cigarettes per day. Screenin:19 [facility] ED Fall Risk Assessment (Adult) History of falling in the last 3 months, rg5 including since admission No falls in past 3 months (0 pts) Confusion or Disorientation No (0 pts) Intoxicated or Sedated No (0 pts) Impaired Gait No (0 pts) Mobility Assist Device Used No (0 pt) Altered Elimination No (0 pt) Score/Fall Risk Level 0 - 2 = Low Risk. Abuse screen: Denies threats or abuse. Nutritional screening: No deficits noted. Tuberculosis screening: No symptoms or risk factors identified. Assessment: 03:19 Reassessment: Pt states " I am leaving bud". Tried to ask pt if he would stay for his jb4 xray, xray is outside the room. Pt waved off x-ray and this nurse refusing to talk to use anymore. Asked pt why he was leaving, pt refused to talk to this nurse and walked out of the ER. Vital Signs: 03:06 BP 146 / 86; Pulse 116; Resp 20; Temp 98.4; Pulse Ox 95% on 3 lpm NC; Weight 72.57 kg; rg5 Height 5 ft. 4 in. ; Pain 9/10; 03:18 BP 146 / 86; Pulse 98; Resp 20; Temp 98.4; Pulse Ox 96% on 3 lpm NC; rg5 03:06 Body Mass Index 27.46 (72.57 kg, 162.56 cm) rg5 03:06 Pain Scale: Adult rg5 ED Course: 03:01 Patient arrived in ED. sp3 03:01 Imani Frances MD is Attending Physician. sp3 03:14 Triage completed. rg5 03:14 Arm band placed on right wrist. Patient placed on oxygen, on nondestructive tester, on pulse rg5 oximetry. EKG completed in triage. Results shown to MD. 03:19 Patient has correct armband on for positive identification. Bed in low position. Call rg5 light in reach. Side rails up X 1. 03:19 No provider procedures requiring assistance completed. Patient did not have IV access rg5 during this emergency room visit. Administered Medications: No medications were administered Medication: 03:19 VIS not applicable for this client. rg5 Outcome: 03:21 Eloped from patient exam room, after seeing physician Time discovered patient gone: jb4 May 05, 2024 at 03:21 see nurses note 03:22 Patient left the ED. jb4 Signatures: Chivo Gill, RN RN jb4 Imani Frances MD MD sp3 Nilton Justin RN RN rg5
--- NOTE | 2024-05-05 03:22 | EDPHYS ---
Physician Documentation [facility] Name: Randy Briones Age: 53 yrs Sex: Male : 1970 Arrival Date: 05/05/2024 Time: 02:57 Bed 4 Private MD: ED Physician Imani Frances HPI: 05/05 03:17 This 53 yrs old Male presents to ER via EMS with complaints of shortness of breath. sp3 03:17 53-year-old male with a history of alcoholism, COPD, hypertension, home O2, hepatitis B sp3 presents to the ED for the second time today for recurrent shortness of breath which patient has on a chronic basis. He denies any new changes. ROS negative for headache, neck pain, abdominal pain, vomiting, diarrhea, syncope, or any other critical illness.. Historical: - Allergies: 03:14 Lisinopril; rg5 - PMHx: 03:14 COPD; Alcoholism; home 02 3LNC PRN; Hepatitis B (Hypertension); Osteoporosis; rg5 Hypertension; - PSHx: 03:14 Amputation of left index finger; rg5 - Immunization history:: Adult Immunizations up to date. - Infectious Disease History:: Denies. - Social history:: Smoking status: Patient reports the use of cigarette tobacco products, smokes one pack cigarettes per day. ROS: 03:19 Constitutional: Negative for fever, chills, and weight loss, Eyes: Negative for injury, sp3 pain, redness, and discharge, Neck: Negative for injury, pain, and swelling, Cardiovascular: Negative for chest pain, palpitations, and edema, Abdomen/GI: Negative for abdominal pain, nausea, vomiting, diarrhea, and constipation, Back: Negative for injury and pain, MS/Extremity: Negative for injury and deformity, Skin: Negative for injury, rash, and discoloration, Neuro: Negative for headache, weakness, numbness, tingling, and seizure, Psych: Negative for depression, anxiety, suicide ideation, homicidal ideation, and hallucinations, Allergy/Immunology: Negative for hives, rash, and allergies, Endocrine: Negative for neck swelling, polydipsia, polyuria, polyphagia, and marked weight changes, 03:19 All other systems are negative, Exam: 03:19 Constitutional: This is a well developed, well nourished patient who is awake, alert, sp3 and in no acute distress. Head/Face: Normocephalic, atraumatic. Eyes: Pupils equal round and reactive to light, extra-ocular motions intact. Lids and lashes normal. Conjunctiva and sclera are non-icteric and not injected. Cornea within normal limits. Periorbital areas with no swelling, redness, or edema. Neck: Trachea midline, no thyromegaly or masses palpated, and no cervical lymphadenopathy. Supple, full range of motion without nuchal rigidity, or vertebral point tenderness. No Meningismus. Chest/axilla: Normal chest wall appearance and motion. Nontender with no deformity. No lesions are appreciated. Cardiovascular: Regular rate and rhythm with a normal S1 and S2. No gallops, murmurs, or rubs. Normal PMI, no JVD. No pulse deficits. Abdomen/GI: Soft, non-tender, with normal bowel sounds. No distension or tympany. No guarding or rebound. No evidence of tenderness throughout. Back: No spinal tenderness. No costovertebral tenderness. Full range of motion. Skin: Warm, dry with normal turgor. Normal color with no rashes, no lesions, and no evidence of cellulitis. MS/ Extremity: Pulses equal, no cyanosis. Neurovascular intact. Full, normal range of motion. Neuro: Awake and alert, GCS 15, oriented to person, place, time, and situation. Cranial nerves II-XII grossly intact. Motor strength 5/5 in all extremities. Sensory grossly intact. Cerebellar exam normal. Normal gait. 03:19 ECG was reviewed by the Attending Physician. EKG demonstrates normal sinus rhythm at 98 bpm with normal intervals, normal axis, nonspecific diffuse ST's ST changes without evidence of acute ischemia. 03:19 Respiratory: Scattered wheezes baseline exam consistent with patient's COPD., Vital Signs: 03:06 BP 146 / 86; Pulse 116; Resp 20; Temp 98.4; Pulse Ox 95% on 3 lpm NC; Weight 72.57 kg; rg5 Height 5 ft. 4 in. ; Pain 9/10; 03:18 BP 146 / 86; Pulse 98; Resp 20; Temp 98.4; Pulse Ox 96% on 3 lpm NC; rg5 03:06 Body Mass Index 27.46 (72.57 kg, 162.56 cm) [facility] 03:06 Pain Scale: Adult rg5 MDM: 03:01 Patient medically screened. sp3 03:20 Data reviewed: vital signs, nurses notes, EMS record, old medical records, EKG, sp3 radiologic studies. ED course: 53-year-old male known to the emergency department with recurrent shortness of breath at baseline. I have ordered EKG and chest x-ray. Patient demanding narcotic pain medications for his chronic pain. When told that was not indicated, patient walked out of the emergency department.. 05/05 03:02 Order name: EKG; Complete Time: 03:02 sp3 05/05 03:02 Order name: EKG - Nurse/Tech; Complete Time: 03:07 sp3 Administered Medications: No medications were administered Disposition Summary: 05/05/24 03:22 Eloped Notes: Disposition: after being seen by provider sp3 Reason: unknown sp3 Condition: Stable sp3 Diagnosis - Chronic shortness of breath, COPD sp3 Followup: sp3 - With: Private Physician - When: Upon discharge from the Emergency Department - Reason: Continuance of care Signatures: Dispatcher [employer] EDMS Imani Frances MD MD sp3 Nilton Justin, RN RN rg5
[2024-05-05 03:33] VITALS: BP 146/86; TEMP 98.4; O2SAT 96
--- NOTE | 2024-05-05 14:06 | EKG ---
Test Date: 2024-05-05 Test Time: 03:04:35 Licensed Massage Practitioner: [place] MEASUREMENT RESULTS: Intervals: Rate: 98 IN: 134 QRSD: 106 QT: 368 QTc: 469 [place]: P: IN: 134 QRS: 142 T: 137 INTERPRETIVE STATEMENTS: Normal sinus rhythm Left posterior fascicular block Abnormal ECG Compared to ECG 05/04/2024 10:33:10 Left posterior fascicular block now present Electronically Signed On 05-05-24 14:06:16 CDT by Rosalino Albert
== END 2024-05-05 03:22 | disposition left against medical advice (07) ==
LOC: ER 02:57
DX: J44.9 Chronic obstructive pulmonary disease, unspecified (principal); I10 Essential (primary) hypertension; F17.210 Nicotine dependence, cigarettes, uncomplicated; Z99.81 Dependence on supplemental oxygen; Z79.899 Other long term (current) drug therapy
CPT/HCPCS: 93005; 99284

== ENCOUNTER 2024-05-07 03:18 | Emergency (ER) | payer OTHER ==
--- OUTSIDE RECORDS SUMMARY | 2024-05-07 03:25 | XMS REPORT | Continuity of Care Document ---
Author Name Unknown Address [address] [facility] [address] [place] [address] [facility] Address [address] [facility] [address] [place] [address] Care Team Providers Care Roads Supervisor Name Role Phone ADRIANNA LOPEZ Primary Care Physician Unavailab DARIEN Posey Attending Clinician Unavailable MINNA ORTA Attending Clinician Unavailab WENDY High Attending Clinician Unava SHARATH Mancera Attending Clinician Unavailable PEG CAMP Attending Clinician Unavailable Peg Camp NP Attending Clinician [phone] URSULA QUINTANILLA Attending Clinician Unavailable KEISHA DAVENPORT Attending Clinician UnaKeisha Carver MD Attending Clinician + Christina Victoria Attending Clinician [phone] JAC NAVARRO Attending Clinician Unavailable Jac Navarro MD Attending Clinician [phone] TYLER ROWE Attending Clinician Unavailab MELINDA Boothe Attending Clinician Unavailable Melinda Maciel DO Attending Clinician [phone] CHRISTY HOLLIDAY Attending Clinician Unavailable Christy Holliday MD Attending Clinician [phone] MARIA ELENA CHAN MEDICAL Attending Clinicbon n Unavailable DENISE SUNG Attending Clinician Unavailable KARLEY ADAMS Attending Clinician Unavailable JAC NAVARRO Admitting Clinician Unavailable MELINDA MACIEL Admitting Clinician Unavailable CHRISTY HOLLIDAY Admitting Clinician Unavailable Payers Payer Name Policy Type Policy Number Effective Date Expirati on Date Source [facility] VINOD LEE COPAY FOCUS 9 [id number] 2024 00:00:00 [facility] [id number] 2023 00:00:00 2024 00:00:00 [employer] [id number] 2023 00:00:00 [employer] 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 ON 9 [id number] 2023 00:00:00 Problems Condition Name Condition Details [...] History of tobacco use Smokes tobacco daily [facility] of Social function 2024-02-08 00:00:00 2024-02-08 00:00:00 [facility] Alcohol intake 2024-02-08 00:00:00 2024-02-08 00:00:00 4.29 /d [facility] Exposure to SARS-CoV-2 (event) 2022-10-04 00:00:00 2022-10-14 10:25:00 Not sure [facility] Tobacco use and exposure 2018-03-24 00:00:00 2018-03-24 00:00:00 User of smokeless tobacco [facility] Tobacco Comment 2018-03-24 00:00:00 2018-03-24 00:00:00 trying to quit [facility] Sex Assigned At 1970 00:00:00 1970 00:00:00 [facility] Smoking Status Start Date Stop Date Source Smokes tobacco daily 2018-03-24 00:00:00 [facility] Medications Ordered Medication Name Filled Medication [...] 02-07 22:30: 00 02-07 22:30 :00 Yes [id number] 100mL 100 mL, Intravenou s, ONCE, 1 [...] ONCE, 1 dose, On Thu02/08/24 at 1615, [facility] magnesium sulfate in water 2 gram/50 mL (4 %) infusion 2 g 02-07 21:00: 00 02-07 21:30 :00 No 2g 2 g, IV Piggyback, Administer over 60 Minutes, ONCE, 1 dose, On Thu02/08/24 at 1600, [facility] ipratropium -albuteroL (DUONEB) 0.5 mg-3 mg(2.5 mg base)/3 mL nebulizer solution 3 mL 02-07 20:30: 00 02-07 19:31 :00 No 3mL 3 mL, Inhalation , ONCE, 1 dose, On Thu02/08/24 at 1530, [facility] HYDROcodone -acetaminop hen (NORCO) 10-325 mg tablet 1 tablet 01-13 13:15: 00 01-13 12:15 :00 No 1{tbl} 1 tablet, Oral, ONCE, 1 dose, On Thu01/14/24 at 0715, [facility] ipratropium -albuteroL (DUONEB) 0.5 mg-3 mg(2.5 mg base)/3 mL nebulizer solution 3 mL 01-13 13:00: 00 01-13 11:53 :00 No 3mL 3 mL, Inhalation , ONCE NOW, 1 dose, On Thu01/14/24 at 0700, [facility] ondansetron (ZOFRAN (PF)) injection 4 mg 01-13 11:30: 00 01-13 11:37 :00 No 4mg 4 mg, Slow IV Push, ONCE, 1 dose, On Thu01/14/24 at 0530, [facility] morpHINE (4 mg/mL) injection 4 mg 01-13 11:30: 00 01-13 11:37 :00 No 4mg 4 mg, Slow IV Push, ONCE, 1 dose, On Kym 01/14/24 at 0530, STAT [facility] azithromyci n (ZITHROMAX Z-PORTER) 250 mg tablet 01-13 00:00: 00 02-16 00:00 :00 No [id number] Take 500 mg on day 1 then 250 mg on days 2-5 [facility] predniSONE 20 mg tablet 01-13 00:00: 00 02-16 00:00 :00 No [id number] Take 1 po tid x 2 days, [...] 1 dose, On Thu12/22/23 at 2300, LAURYN [facility] NaCl 0.9% (NS) bolus infusion 1,000 mL 12-23 05:00: 00 12-23 05:09 :00 No 1000mL at 999 mL/hr, 1,000 mL, IV Infusion, ONCE, 1 dose, On Thu12/22/23 at 2300, LAURYN [facility] ondansetron (ZOFRAN (PF)) injection 4 mg 12-23 04:30: 12-23 04:24 :00 No 4mg 4 mg, Slow IV Push, ONCE, 1 dose, On Thu12/22/23 at 2230, LAURYN [facility] maalox:diph enhydrAMINE :lidocaine 2 % viscous 1:1:1 ([facility]) oral suspension 15 mL 12-23 04:15: 00 12-23 04:17 :00 No 15mL 15 mL, Oral, ONCE, 1 dose, On Thu12/22/23 at 2215, [facility] famotidine (PEPCID (PF)) injection 20 mg 12-23 [...] 12-22 03:30: 00 12-22 03:30 :00 No [id number] 100mL 100 mL, Intravenou s, ONCE, 1 dose, On Thu12/21/23 at 2130, Routine [facility] morpHINE (4 mg/mL) injection 4 mg 12-22 03:30: 00 12-22 02:16 :00 No 4mg 4 mg, Slow IV Push, ONCE, 1 dose, On 2/12/24 at 2130, Routine [facility] ondansetron (ZOFRAN (PF)) injection 4 mg 12-22 02:45: 00 12-22 02:02 :00 No 4mg 4 mg, Slow IV Push, ONCE, 1 dose, On Thu12/21/23 at 2045, Routine [facility] hydrocortis one 25 mg suppository 12-22 00:00: 00 Yes [id number] 25mg Insert 1 Suppositor y into rectum 2 (two) times daily as needed for Rectal itching/pa in. [facility] ondansetron 4 mg disintegrat ing tablet 12-22 00:00: 00 02-16 00:00 :00 No [id number] 4mg Take 1 tablet by mouth every 8 (eight) hours as needed for Nausea and Vomiting (N/V). [facility] amoxicillin -clavulanat e 875-125 mg per tablet 12-22 00:00: 00 01-02 05:59 :00 No [id number] 1{tbl} Take 1 tablet by mouth every [...] dose, On Thu10/27/23 at 0145, LAURYN [facility] levoFLOXaci n (LEVAQUIN) tablet 500 mg 2022-11 07:45: 00 10-27 19:44 :00 No 500mg 500 mg, Oral, ONCE, 1 dose, On Thu10/27/23 at 0145, LAURYN
Re ason for Anti-Infec tive: Empiric Non-Surgic al Prophylaxi s
Durat ion of therapy: Once (ED) [facility] iopamidol (ISOVUE 370-500 mL) injection 70 mL 2021-11 18:30: 00 10-14 18:30 :00 No [id number] 70mL 70 mL, Intravenou s, ONCE, 1 [...] [facility] levoFLOXaci n 750 mg tablet 2022-1 2-06 00:00: 00 02-16 00:00 :00 No [id number] 750mg Take 1 tablet by mouth every [...] Slow IV Push, ONCE, 1 dose, On [facility] 02/20/22 at 0645, STAT [facility] ipratropium -albuteroL (DUONEB) 0.5 mg-3 mg(2.5 mg base)/3 mL nebulizer solution 3 mL 02-20 10:30: 00 02-20 09:34 :00 No 3mL 3 mL, Inhalation , ONCE, 1 dose, On [facility] 02/20/22 at 0530, Routine [facility] albuterol 90 mcg/actuati on inhaler 02-20 00:00: 00 Yes [id number] 2{puff} Inhale 2 Puffs every 4 (four) hours as needed for Wheezing or Shortness of Breath. [facility] triamterene -hydrochlor othiazid 37.5-25 mg tablet 02-20 00:00: 00 Yes [id number] 1{tbl} Take 1 tablet by mouth daily. [facility] chlordiazeP OXIDE 25 mg capsule 02-20 00:00: 00 Yes [id number] 25mg Take 1 capsule by mouth every 6 (six) hours as needed for Anxiety, Agitation, Heart Rate => 100 or Detox. [facility] predniSONE 10 mg tablet 02-20 00:00: 00 02-16 00:00 :00 No [id number] TAKE ONE TABLET BY MOUTH DAILY [facility] albuterol 2.5 mg /3 mL (0.083 %) nebulizer solution 02-20 00:00: 00 02-16 00:00 :00 No [id number] 2.5mg Inhale 3 mL every 4 (four) hours. May also nebulize one extra every 6 hours. [facility] budesonide- formoteroL 160-4.5 mcg/actuati on inhaler 02-20 00:00: 00 02-16 00:00 :00 No [id number] 2{puff} Inhale 2 Puffs 2 (two) times [...] SARS-COV-2 COVID-19 PFIZER VACCINE 2021-02-03 00:00:00 Completed [facility] SARS-COV-2 COVID-19 PFIZER VACCINE 2021-02-03 00:00:00 Completed [facility] SARS-COV-2 COVID-19 PFIZER VACCINE 2021-02-03 00:00:00 Completed [facility] SARS-COV-2 COVID-19 PFIZER VACCINE 2021-01-13 00:00:00 Completed [facility] SARS-COV-2 COVID-19 PFIZER VACCINE 2021-01-13 00:00:00 Completed [facility] SARS-COV-2 COVID-19 PFIZER VACCINE 2021-01-13 00:00:00 Completed [facility] Pneumococcal Polysaccharide, PPSV23 (PNEUMOVAX) 2018-03-26 00:00:00 Completed [facility] Influenza Virus Vaccine Quad IM 3+ YRS 2018-03-26 00:00:00 Completed [facility] Pneumococcal Polysaccharide, PPSV23 (PNEUMOVAX) 2018-03-26 00:00:00 Completed [facility] Influenza Virus Vaccine Quad IM 3+ YRS 2018-03-26 00:00:00 Completed [facility] Pneumococcal Polysaccharide, PPSV23 (PNEUMOVAX) 2018-03-26 00:00:00 Completed [facility] Influenza Virus Vaccine Quad IM 3+ YRS 2018-03-26 00:00:00 Completed [facility] Pneumococcal Polysaccharide, PPSV23 (PNEUMOVAX) Unknown Completed [facility] Influenza Virus Vaccine Quad IM 3+ YRS Unknown Completed [facility] SARS-COV-2 COVID-19 PFIZER VACCINE Unknown Completed [facility] SARS-COV-2 COVID-19 PFIZER VACCINE Unknown Completed [facility] Pneumococcal Polysaccharide, PPSV23 (PNEUMOVAX) Unknown Completed [facility] Influenza Virus Vaccine Quad IM 3+ YRS Unknown Completed [facility] SARS-COV-2 COVID-19 PFIZER VACCINE Unknown Completed [facility] SARS-COV-2 COVID-19 PFIZER VACCINE Unknown Completed [facility] Pneumococcal Polysaccharide, PPSV23 (PNEUMOVAX) Unknown Completed [facility] Influenza Virus Vaccine Quad IM 3+ YRS Unknown Completed [facility] SARS-COV-2 COVID-19 PFIZER VACCINE Unknown Completed [facility] SARS-COV-2 COVID-19 PFIZER VACCINE Unknown Completed [facility] Pneumococcal Polysaccharide, PPSV23 (PNEUMOVAX) Unknown Completed [facility] Influenza Virus Vaccine Quad IM 3+ YRS Unknown Completed [facility] SARS-COV-2 COVID-19 PFIZER VACCINE Unknown Completed [facility] SARS-COV-2 COVID-19 PFIZER VACCINE Unknown Completed [facility] Pneumococcal Polysaccharide, PPSV23 (PNEUMOVAX) Unknown Completed [facility] Influenza Virus Vaccine Quad IM 3+ YRS Unknown Completed [facility] SARS-COV-2 COVID-19 PFIZER VACCINE Unknown Completed [facility] SARS-COV-2 COVID-19 PFIZER VACCINE Unknown Completed [facility] Pneumococcal Polysaccharide, PPSV23 (PNEUMOVAX) Unknown Completed [facility] Influenza Virus Vaccine Quad IM 3+ YRS Unknown Completed [facility] SARS-COV-2 COVID-19 PFIZER VACCINE Unknown Completed [facility] SARS-COV-2 COVID-19 PFIZER VACCINE Unknown Completed [facility] Pneumococcal Polysaccharide, PPSV23 (PNEUMOVAX) Unknown Completed [facility] Influenza Virus Vaccine Quad IM 3+ YRS Unknown Completed [facility] SARS-COV-2 COVID-19 PFIZER VACCINE Unknown Completed [facility] SARS-COV-2 COVID-19 PFIZER VACCINE Unknown Completed [facility] Pneumococcal Polysaccharide, PPSV23 (PNEUMOVAX) Unknown Completed [facility] Influenza Virus Vaccine Quad IM 3+ YRS Unknown Completed [facility] SARS-COV-2 COVID-19 PFIZER VACCINE Unknown Completed [facility] SARS-COV-2 COVID-19 PFIZER VACCINE Unknown Completed [facility] Vital Signs Vital Name Observation Time Observation Value Comments S ource Systolic blood pressure 2024-02-18 01:57:00 134 mm[Hg] [facility] Diastolic blood pressure 2024-02-18 01:57:00 94 mm[Hg] [facility] Body height 2024-02-18 01:57:[address] [facility] Body weight 2024-02-18 01:57:[address] [facility] BMI 2024-02-18 01:57:00 30.04 kg/m2 [facility] Heart rate 2024-02-18 01:53:00 110 /min [facility] Body temperature 2024-02-18 01:53:00 36.61 Debbie [facility] Respiratory rate 2024-02-18 01:53:00 24 /min [facility] Oxygen saturation in Arterial blood by Pulse oximetry 2024-02-18 01:53:00 93 /min [facility] Systolic blood pressure 2024-02-09 01:54:05 150 mm[Hg] [facility] Diastolic blood pressure 2024-02-09 01:54:05 91 mm[Hg] [facility] Heart rate 2024-02-09 01:54:05 87 /min [facility] Respiratory rate 2024-02-09 01:54:05 17 /min [facility] Oxygen saturation in Arterial blood by Pulse oximetry 2024-02-09 01:54:05 93 /min [facility] Body temperature 2024-02-09 01:45:00 36.67 Debbie [facility] Body height 2024-02-09 01:45:00 162.6 cm [facility] Body weight 2024-02-09 01:45:00 81.194 kg [facility] BMI 2024-02-09 01:45:00 30.73 kg/m2 [facility] Respiratory rate 2024-02-08 21:00:00 18 /min [facility] Oxygen saturation in Arterial blood by Pulse oximetry 2024-02-08 21:00:00 96 /min [facility] Systolic blood pressure 2024-02-08 20:27:00 164 mm[Hg] [facility] Diastolic blood pressure 2024-02-08 20:27:00 90 mm[Hg] [facility] Heart rate 2024-02-08 20:27:00 83 /min [facility] Body temperature 2024-02-08 19:12:00 36.83 Debbie [facility] Body height 2024-02-08 19:12:00 162.6 cm [facility] Body weight 2024-02-08 19:12:00 81.194 kg [facility] BMI 2024-02-08 19:12:00 30.73 kg/m2 [facility] Heart rate 2024-01-14 12:15:00 98 /min [facility] Body temperature 2024-01-14 12:15:00 36.56 Debbie [facility] Respiratory rate 2024-01-14 12:15:00 14 /min [facility] Oxygen saturation in Arterial blood by Pulse oximetry 2024-01-14 12:15:00 95 /min [facility] Systolic blood pressure 2024-01-14 12:00:00 140 mm[Hg] [facility] Diastolic blood pressure 2024-01-14 12:00:00 90 mm[Hg] [facility] Body height 2024-01-14 10:51:00 162.6 cm [facility] Body weight 2024-01-14 10:51:00 81.194 kg [facility] BMI 2024-01-14 10:51:00 30.73 kg/m2 [facility] Systolic blood pressure 2023-12-23 05:02:00 133 mm[Hg] [facility] Diastolic blood pressure 2023-12-23 05:02:00 84 mm[Hg] [facility] Heart rate 2023-12-23 05:02:00 78 /min [facility] Body temperature 2023-12-23 05:02:00 36.17 Debbie [facility] Respiratory rate 2023-12-23 05:02:00 17 /min [facility] Oxygen saturation in Arterial blood by Pulse oximetry 2023-12-23 05:02:00 91 /min [facility] Body height 2023-12-23 03:45:00 162.6 cm [facility] Body weight 2023-12-23 03:45:[address] [facility] BMI 2023-12-23 03:45:00 30.73 kg/m2 [facility] Systolic blood pressure 2023-12-22 02:08:00 143 mm[Hg] [facility] Diastolic blood pressure 2023-12-22 02:08:00 92 mm[Hg] [facility] Heart rate 2023-12-22 02:08:00 81 /min [facility] Respiratory rate 2023-12-22 02:08:00 13 /min [facility] Oxygen saturation in Arterial blood by Pulse oximetry 2023-12-22 02:08:00 95 /min [facility] Body temperature 2023-12-22 01:33:00 36.72 Debbie [facility] Body height 2023-12-22 01:33:[address] [facility] Body weight 2023-12-22 01:33:[address] [facility] BMI 2023-12-22 01:33:00 30.74 kg/m2 [facility] Systolic blood pressure 2023-11-11 02:00:00 127 mm[Hg] [facility] Diastolic blood pressure 2023-11-11 02:00:00 87 mm[Hg] [facility] Heart rate 2023-11-11 02:00:00 79 /min [facility] Respiratory rate 2023-11-11 02:00:00 20 /min [facility] Oxygen saturation in Arterial blood by Pulse oximetry 2023-11-11 02:00:00 98 /min [facility] Body temperature 2023-11-11 01:31:00 36.28 Debbie [facility] Body height 2023-11-11 01:31:[address] [facility] Body weight 2023-11-11 01:31:[address] [facility] BMI 2023-11-11 01:31:00 30.04 kg/m2 [facility] Systolic blood pressure 2023-10-27 06:54:00 133 mm[Hg] [facility] Diastolic blood pressure 2023-10-27 06:54:00 94 mm[Hg] [facility] Heart rate 2023-10-27 06:54:00 95 /min [facility] Body temperature 2023-10-27 06:54:00 36.44 Debbie [facility] Respiratory rate 2023-10-27 06:54:00 22 /min [facility] Body height 2023-10-27 06:54:[address] [facility] Body weight 2023-10-27 06:54:[address] [facility] BMI 2023-10-27 06:54:00 29.70 kg/m2 [facility] Oxygen saturation in Arterial blood by Pulse oximetry 2023-10-27 06:54:00 94 /min [facility] Systolic blood pressure 2022-10-14 19:43:00 111 mm[Hg] [facility] Diastolic blood pressure 2022-10-14 19:43:00 74 mm[Hg] [facility] Heart rate 2022-10-14 19:43:00 98 /min [facility] Body temperature 2022-10-14 19:43:00 36.39 Debbie [facility] Respiratory rate 2022-10-14 19:43:00 22 /min [facility] Oxygen saturation in Arterial blood by Pulse oximetry 2022-10-14 19:43:00 94 /min [facility] Body height 2022-10-14 16:13:[address] [facility] Body weight 2022-10-14 16:13:[address] [facility] BMI 2022-10-14 16:13:00 30.90 kg/m2 [facility] Systolic blood pressure 2022-03-12 10:13:00 119 mm[Hg] [facility] Diastolic blood pressure 2022-03-12 10:13:00 75 mm[Hg] [facility] Heart rate 2022-03-12 10:13:00 105 /min [facility] Body temperature 2022-03-12 10:13:00 37.28 Debbie [facility] Respiratory rate 2022-03-12 10:13:00 19 /min [facility] Body height 2022-03-12 10:13:[address] [facility] Body weight 2022-03-12 10:13:[address] [facility] BMI 2022-03-12 10:13:00 37.76 kg/m2 [facility] Oxygen saturation in Arterial blood by Pulse oximetry 2022-03-12 10:13:00 96 /min [facility] Systolic blood pressure 2022-02-20 11:57:00 155 mm[Hg] [facility] Diastolic blood pressure 2022-02-20 11:57:00 88 mm[Hg] [facility] Heart rate 2022-02-20 11:57:00 105 /min [facility] Respiratory rate 2022-02-20 11:57:00 18 /min [facility] Oxygen saturation in Arterial blood by Pulse oximetry 2022-02-20 11:57:00 100 /min [facility] Body temperature 2022-02-20 09:25:00 37 Debbie [facility] Body height 2022-02-20 09:25:[address] [facility] Body weight 2022-02-20 09:25:[address] [facility] BMI 2022-02-20 09:25:00 36.39 kg/m2 [facility] Procedures Procedure Date / Time Performed Performing Clinician Source AC PANEL 20 + LACTIC ACID 2024-02-08 20:47:00 Christina Villarreal [facility] XR CHEST 1 VW 2024-02-08 19:47:[address] [facility] URINALYSIS 2024-02-08 19:36:00 [facility] MAGNESIUM 2024-02-08 19:25:00 [facility] TROPONIN I 2024-02-08 19:25:00 [facility] COMP. METABOLIC PANEL ([id number]) 2024-02-08 19:25:00 Christina Villarreal [facility] ETHANOL 2024-02-08 19:25:00 Christina Villarreal [facility] CBC WITH DIFF 2024-02-08 19:25:[address] [facility] N-TERMINAL PRO-BNP 2024-02-08 19:25:00 Christina Villarreal [facility] EKG-12 LEAD 2024-01-14 12:00:51 Jac Navarro [facility] LIPASE 2024-01-14 11:11:00 Jac Navarro [facility] TROPONIN I 2024-01-14 11:11:00 Jac Navarro [facility] COMP. METABOLIC PANEL ([id number]) 2024-01-14 11:11:00 Jac Navarro [facility] ETHANOL 2024-01-14 11:11:00 Jac Navarro [facility] CBC WITH DIFF 2024-01-14 11:11:00 [facility] N-TERMINAL PRO-BNP 2024-01-14 11:11:00 Jac Navarro [facility] COVID-19 (ID NOW RAPID TESTING) 2024-01-14 11:11:00 Jac Navarro [facility] CONSENT/REFUSAL FOR DIAGNOSIS AND TREATMENT 2024-01-14 10:44:32 Doctor Unassigned, Robeline [facility] LIPASE 2023-12-23 04:17:00 Tyler Rowe [facility] COMP. METABOLIC PANEL ([id number]) 2023-12-23 04:17:00 Tyler Rowe [facility] CBC WITH DIFF 2023-12-23 04:17:00 [facility] 2023-12-23 04:17:00 Tyler Rowe [facility] CONSENT/REFUSAL FOR DIAGNOSIS AND TREATMENT 2023-12-23 03:40:32 Doctor Unassigned, Robeline [facility] CT ABDOMEN PELVIS W CONTRAST 2023-12-22 02:31:05 Melinda Maciel [facility] LIPASE 2023-12-22 01:58:00 Melinda Maciel [facility] COMP. METABOLIC PANEL ([id number]) 2023-12-22 01:58:00 Melinda Maciel [facility] ETHANOL 2023-12-22 01:58:00 [facility] CBC WITH DIFF 2023-12-22 01:58:[address] [facility] PROTHROMBIN TIME / INR 2023-12-22 01:58:00 Wali Maciel [facility] URINALYSIS 2023-12-22 01:58:00 [facility] CONSENT/REFUSAL FOR DIAGNOSIS AND TREATMENT 2023-12-22 01:19:14 Doctor Unassigned, Robeline [facility] NOTICE OF PRIVACY PRACTICES 2023-11-11 01:24:24 Doctor Unassigned, Robeline [facility] CONSENT/REFUSAL FOR DIAGNOSIS AND TREATMENT 2023-11-11 01:23:54 Doctor Unassigned, Robeline [facility] COVID-19 (ID NOW RAPID TESTING) 2023-10-27 07:09:00 Jac Navarro [facility] NOTICE OF PRIVACY PRACTICES 2023-10-27 06:49:48 Doctor Unassigned, Robeline [facility] CONSENT/REFUSAL FOR DIAGNOSIS AND TREATMENT 2023-10-27 06:47:40 Doctor Unassigned, Robeline [facility] CT ABDOMEN PELVIS W CONTRAST 2022-10-14 17:33:00 [facility] XR CHEST 1 VW 2022-10-14 17:10:37 [facility] TROPONIN I 2022-10-14 16:37:00 Melinda Maciel [facility] COMP. METABOLIC PANEL ([id number]) 2022-10-14 [facility] 2022-10-14 16:37:[address] [facility] PROTHROMBIN TIME / INR 2022-10-14 16:37:00 Wali Maciel [facility] URINALYSIS 2022-10-14 16:37:00 [facility] N-TERMINAL PRO-BNP 2022-10-14 16:37:00 Maciel, Melinda [facility] CONSENT/REFUSAL FOR DIAGNOSIS AND TREATMENT 2022-10-14 15:56:36 Doctor Unassigned, Robeline [facility] CONSENT/REFUSAL FOR DIAGNOSIS AND TREATMENT 2022-03-12 10:03:12 Doctor Unassigned, Robeline [facility] XR CHEST 1 VW 2022-02-20 09:59:00 Christy Holliday [facility] LIPASE 2022-02-20 09:30:[address] [facility] TROPONIN I 2022-02-20 09:30:[address] [facility] COMP. METABOLIC PANEL ([id number]) 2022-02-20 09:30:00 Christy Holliday [facility] CBC WITH DIFF 2022-02-20 09:30:00 Christy Holliday [facility] N-TERMINAL PRO-BNP 2022-02-20 09:30:00 Christy Holliday [facility] NOTICE OF PRIVACY PRACTICES 2022-02-20 09:15:02 Doctor Unassigned, Robeline [facility] CONSENT/REFUSAL FOR DIAGNOSIS AND TREATMENT 2022-02-20 09:14:47 Doctor Unassigned, Robeline [facility] Encounters Start Date/Time End Date/Time Encounter Type Admission Type Attending [facility] Care Department Encounter ID Source 2024-04-14 16:30:00 2024-04-14 16:30:00 Outpatient DARIEN LOBO [id number] [facility] 2024-04-12 11:00:00 2024-04-12 11:00:00 Outpatient MINNA ORTA [id number] [facility] 2024-04-12 11:00:00 2024-04-12 11:00:00 Outpatient WENDY BROWNLEE [id number] [facility] 2024-04-12 00:00:00 2024-04-12 00:00:00 Outpatient SHARATH HALEY [id number] [facility] 2024-04-05 11:30:2024-04-05 11:30:00 Outpatient DARIEN LOBO [id number] [facility] 2024-04-05 00:00:00 2024-04-05 00:00:00 Outpatient DARIEN LOBO [id number] [facility] 2024-03-28 00:00:00 2024-03-28 00:00:00 Outpatient DARIEN LOBO [id number] [facility] 2024-03-15 08:30:00 2024-03-15 08:30:00 Outpatient WENDY BROWNLEE [id number] [facility] 2024-02-17 20:58:00 2024-02-17 21:44:00 Emergency X PEG CAMP [facility] ERT [id number] [facility] 2024-02-17 20:58:00 2024-02-17 21:44:00 Emergency Peg Camp [facility] 1.2840.114 350.1.13.10 4.2.7.2.686 [id number] [id number] [facility] 2024-02-09 13:10:00 2024-02-09 15:14:00 Emergency URSULA SANTOS [facility] [id number] [address] [place] [address] 2024-02-08 20:38:00 2024-02-08 21:40:00 Emergency X KEISHA DAVENPORT [facility] ERT [id number] [facility] 2024-02-08 20:38:00 2024-02-08 21:40:00 Emergency AufdsusanKeisha briones [facility] 1.2840.114 350.1.13.10 4.2.7.2.686 [id number] [id number] [facility] 2024-02-08 14:08:00 2024-02-08 17:06:00 Emergency Christina Villarreal [facility] 1.2.840.114 350.1.13.10 4.2.7.2.686 [id number] 084 [id number] [facility] 2024-01-14 04:46:00 2024-01-14 06:23:00 Emergency X JAC NAVARRO [facility] ERT [id number] [facility] 2024-01-14 04:46:00 2024-01-14 06:23:00 Emergency Jac Navarro [facility] 1.2.840.114 350.1.13.10 4.2.7.2.686 [id number] 084 [id number] [facility] 2023-12-22 21:51:00 2023-12-22 23:13:00 Emergency X TREV ROWERADHA [facility] ERT [id number] [facility] 2023-12-22 21:51:00 2023-12-22 23:13:00 Emergency Tyler Rowe [facility] 1.2.840.114 350.1.13.10 4.2.7.2.686 [id number] 084 [id number] [facility] 2023-12-21 19:36:00 2023-12-21 21:52:00 Emergency X MELINDA MACIEL [facility] ERT [id number] [facility] 2023-12-21 19:36:00 2023-12-21 21:52:00 Emergency Melinda Maciel [facility] 1.2.840.114 350.1.13.10 4.2.7.2.686 [id number] 084 [id number] [facility] 2023-11-10 19:29:00 2023-11-10 20:14:00 Emergency X CHRISTY HOLLIDAY [facility] ERT [id number] [facility] 2023-11-10 19:29:00 2023-11-10 20:14:00 Emergency Christy Holliday [facility] 1.2.840.114 350.1.13.10 4.2.7.2.686 [id number] 084 [id number] [facility] 2023-10-27 00:49:00 2023-10-27 01:41:00 Emergency X JAC NAVARRO [facility] ERT [id number] [facility] 2023-10-27 00:49:00 2023-10-27 01:41:00 Emergency Jac Navarro [facility] 1..840.114 350.1.13.10 4.2.7.2.686 [id number] 084 [id number] [facility] 2023-07-15 00:00:00 2023-07-15 00:00:00 Outpatient DARIEN LOBO [id number] [facility] 2023-06-16 11:30:00 2023-06-16 11:30:00 Outpatient DARIEN LOBO [id number] [facility] 2023-05-18 00:00:00 2023-05-18 00:00:00 Outpatient GROUPMARIA ELENA [id number] [facility] 2022-10-14 10:07:00 2022-10-14 14:39:00 Emergency X MELINDA MACIEL [facility] ERT [id number] [facility] 2022-10-14 10:07:00 2022-10-14 14:39:00 Emergency MacielMelinda [facility] 1..840.114 350.1.13.10 4.2.7.2.686 [id number] 084 [id number] [facility] 2022-03-12 05:15:00 2022-03-12 06:41:00 Emergency X CHRISTY HOLLIDAY [facility] ERT [id number] [facility] 2022-03-12 05:15:00 2022-03-12 06:41:00 Emergency Christy Holliday [facility] 1..840.114 350.1.13.10 4.2.7.2.686 [id number] [facility] 2022-02-20 04:17:00 2022-02-20 07:16:00 Emergency X CHRISTY HOLLIDAY [facility] ERT [id number] [facility] 2022-02-20 04:17:00 2022-02-20 07:16:00 Emergency Christy Holliday [facility] 1.2.840.114 350.1.13.10 4.2.7.2.686 [id number] 084 [id number] [facility] 2021-02-03 11:10:00 2021-02-03 11:10:00 Outpatient R DENISE SUNG [facility] [id number] [facility] 2021-01-13 11:20:00 2021-01-13 11:20:00 Outpatient [facility] [id number] [facility] 2020-11-10 08:20:00 2020-11-10 08:20:00 Outpatient KARLEY ESTRADA [facility] [id number] [facility] Results Test Description Test Time Test Comments Results Result Co mments Source [facility] + Lactic [id number] 20:52:47* Test Item Value Reference Range Interpretation Comme nts PH (test code = 2) 7.39 7.35-7.45 PCO2 (test code = 6263361566) 42 35-45 PO2 (test code = 3853069566) 76 80-100 L HCO3 (test code = 7451705306) 25 22-26 BE (test code = 3995695688) -0.1 -3.0-3.0 THB (test code = 4173766030) 14.3 g/dL 13.5-18.0 %O2HB (test code = 8841878347) 85.8 % 94.0-99.0 L %COHB ART (test code = 7216097970) 9.0 % 0.0-1.5 H %METHB ART (test code = 8598649956) 0.3 % 0.4-1.5 L VOL%O2 ART (test code = 1476379522) 17.3 % 15.0-23.0 NA (test code = 0815123171) 140 mmol/L 135-145 K+ (test code = 1721948103) 4.1 mmol/L 3.5-5.0 AC CA IONZ (test code = 0364041273) 4.50 mg/dL 4.50-5.30 GLUCOSE (test code = 0923722081) 105 mg/dL 70-110 LACTIC ACID (test code = 7151177459) 2.60 mmol/L 0.50-2.20 H Lab Interpretation (test cod e = 82938-0) [facility] [id number] 20:34:14* Test Item Value Reference Range Interpretation Comme nts TROPONIN I (test code = 1121573151) 0.008 ng/mL <=0.034 LOUISE (test code = [...] of biotin. Lab Interpretation (test code = 44071-4) Normal [facility] Pmq-[id number] 20:31:35* Test Item Value Reference Range Interpretation Comme nts NT-proBNP (test code = 97131-0) 188 pg/mL <=125 LOUISE (test code = LOUISE) Result Indeterminate-Consid er causes of NT-proBNP elevation other than Heart failure such as acute coronary syndrome, pulmonary embolism, pulmonary hypertension, sepsis, stroke, and renal dysfunction. Lab Interpretation (test code = 68914-2) [facility]normal [facility] Met[facility] Panel ([id number])2024-02-08 20:21:10* Test Item Value Reference Range Interpretation Comme nts NA (test code = 0631456035) 135 mmol/L 135-145 K (test code = 7438679215) 4.5 mmol/L 3.5-5.0 CL (test code = 2538472164) 100 mmol/L 98-108 CO2 TOTAL (test code = 7877196943) 22 mmol/L 23-31 L AGAP (test code = 9974868540) 13 2-16 BUN (test code = 1427317260) 8 mg/dL 7-23 GLUCOSE (test code = 5197179806) 97 mg/dL 70-110 CREATININE (test code = 2160-0) 0.65 mg/dL 0.60-1.25 TOTAL BILI (test code = 0262536280) 0.4 mg/dL 0.1-1.1 CALCIUM (test code = 5445210045) 9.4 mg/dL 8.6-10.6 T PROTEIN (test code = 6944653790) 8.2 g/dL 6.3-8.2 ALBUMIN (test code = 5955942862) 4.7 g/dL 3.5-5.0 ALK PHOS (test code = 1892174499) 76 U/L 34-122 ALTv (test code = 1742-6) 33 U/L 5-50 AST(SGOT) (test code = 3760721879) 54 U/L 13-40 H eGFR (test code = 30250-3) 111.3 mL/min/1.73m2 CKD-EPI eGFR (2020). Assuming creatinine has been stable day-to-day for at least three months, the eGFR indicates Category G1 (>= 90 mL/min/1.73 m2) Lab Interpretation (test code = 22731-7) Abnormal [facility]2024-[facility] 20:21:10* Test Item Value Reference Range Interpretation Comme nts MAGNESIUM (test code = 8028623444) 2.1 mg/dL 1.7-2.4 Lab Interpretation (test cod e = 12202-6) [facility] 1 [id number] 20:07:21EXAM: XR CHEST 1 VW COMPARISON: 01/14/2024 HISTORY: sob FINDINGS: Lungs: Slightly hyperexpanded lungswith subtle progression of interstitialprominence. Trace pleural effusions could be present. Heart/Mediastinum: Stable cardiomegaly. Bones and soft tissues: No osseous abnormality is visualized.[facility] Cbc with [id number] 20:04:26* Test Item Value Reference Range Interpretation [...] 33.8 g/dL 31.2-35.0 RDW-SD (test code = 20097-1) 50.5 fL 38.5-51.6 RDW-CV (test code = 788-0) 14.3 % 12.1-15.4 PLT (test code = 777-3) 206 150-328 MPV (test code = 25494-5) 9.1 fL 9.8-13.0 L NRBC/100 WBC (test code = 5719697113) 0.0 0.0-10.0 NRBC x10^3 (test code = 8300719176) See_Comment [Automated messa ge] The system which generated this result transmitted reference range: 10*3/?L. The reference range was not used to interpret this result as normal/abnormal. GRAN MAT (NEUT) % (test code = 770-8) 81.0 % IMM GRAN % (test code = 0276534966) 1.20 % LYMPH % (test code = 736-9) 10.9 % MONO % (test code = 5905-5) 6.8 % EOS % (test code = 713-8) 0.0 % BASO % (test code = 706-2) 0.1 % GRAN MAT x10^3(ANC) (test code = 7804166917) 9.31 10*3/uL 1.99-6.95 H IMM GRAN x10^3 (test code = 6487972967) 0.14 10*3/uL 0.00-0.06 H LYMPH x10^3 (test code = 731-0) 1.25 10*3/uL 1.09-3.23 MONO x10^3 (test code = 742-7) 0.78 10*3/uL 0.36-1.02 EOS x10^3 (test code = 711-2) 0.06-0.53 L BASO x10^3 (test code = 704-7) 0.01-0.09 Lab Interpretation (test code = 97939-9) [facility]OLIC PANEL (51068)2023-12-23 04:53:26* Test Item Value Reference Range Interpretation Comme nts NA (test code = 9019376770) 135 mmol/L 135-145 K (test code = 0493877791) 3.2 mmol/L 3.5-5.0 L CL (test code = 9087653639) 104 mmol/L 98-108 CO2 TOTAL (test code = 8589305885) 23 mmol/L 23-31 AGAP (test code = 1777488282) 8 2-16 BUN (test code = 5318477259) 11 mg/dL 7-23 GLUCOSE (test code = 8072141186) 82 mg/dL 70-110 CREATININE (test code = 2160-0) 0.64 mg/dL 0.60-1.25 TOTAL BILI (test code = 8239387712) 0.5 mg/dL 0.1-1.1 CALCIUM (test code = 9143566048) 8.8 mg/dL 8.6-10.6 T PROTEIN (test code = 4832212613) 6.7 g/dL 6.3-8.2 ALBUMIN (test code = 4043060158) 4.1 g/dL 3.5-5.0 ALK PHOS (test code = 2563987692) 46 U/L 34-122 ALTv (test code = 1742-6) 21 U/L 5-50 AST(SGOT) (test code = 9676577058) 43 U/L 13-40 H eGFR (test code = 08179-8) 111.8 mL/min/1.73m2 CKD-EPI eGFR (2021). Assuming creatinine has been stable day-to-day for at least three months, the eGFR indicates Category G1 (>= 90 mL/min/1.73 m2) Lab Interpretation (test code = 23597-1) [facility]20[facility] 04:53:26* Test Item Value Reference Range Interpretation Comme nts LIPASE (test code = 2111063993) 105 U/L 0-220 Lab Interpretation (test cod e = 97497-2) Normal [facility] WITH [id number] 04:34:24* Test Item Value Reference Range Interpretation [...] 33.0 g/dL 31.2-35.0 RDW-SD (test code = 52514-5) 50.9 fL 38.5-51.6 RDW-CV (test code = 788-0) 13.7 % 12.1-15.4 PLT (test code = 777-3) 232 150-328 MPV (test code = 78844-7) 8.7 fL 9.8-13.0 L NRBC/100 WBC (test code = 8686087791) 0.0 0.0-10.0 NRBC x10^3 (test code = 0011140217) See_Comment [Automated messa ge] The system which generated this result transmitted reference range: 10*3/?L. The reference range was not used to interpret this result as normal/abnormal. GRAN MAT (NEUT) % (test code = 770-8) 58.8 % IMM GRAN % (test code = 2570968395) 0.90 % LYMPH % (test code = 736-9) 27.8 % MONO % (test code = 5905-5) 10.5 % EOS % (test code = 713-8) 1.3 % BASO % (test code = 706-2) 0.7 % GRAN MAT x10^3(ANC) (test code = 0487789752) 5.68 10*3/uL 1.99-6.95 IMM GRAN x10^3 (test code = 3166201184) 0.09 10*3/uL 0.00-0.06 H LYMPH x10^3 (test code = 731-0) 2.69 10*3/uL 1.09-3.23 MONO x10^3 (test code = 742-7) 1.02 10*3/uL 0.36-1.02 EOS x10^3 (test code = 711-2) 0.13 10*3/uL 0.06-0.53 BASO x10^3 (test code = 704-7) 0.07 10*3/uL 0.01-0.09 Lab Interpretation (test code = 73002-4) [facility] W [id number] 03:32:43Exam: CT Abdomen and Pelvis With Contrast, [...] acute osseous abnormality.Soft tissues: Small fat-containing inguinal hernias.[facility] Arlington[facility]anol2024-02-13 02:32:24* Test Item Value Reference Range Interpretation Comme nts ALCOHOL (test code = 1704438649) 117 mg/dL LOUISE (test code = LOUISE) <10 Gfweoffk74-601 Toxic>100 Depression of FILER HELPER>400 Fatalities Reported [facility] Metabolic Panel (30955)2023-12-22 02:31:43* Test Item Value Reference Range Interpretation Comme nts NA (test code = 8054243365) 133 mmol/L 135-145 L K (test code = 8684688285) 3.3 mmol/L 3.5-5.0 L CL (test code = 3218947531) 102 mmol/L 98-108 CO2 TOTAL (test code = 6929999169) 25 mmol/L 23-31 AGAP (test code = 1881981185) 6 2-16 BUN (test code = 5595681749) 11 mg/dL 7-23 GLUCOSE (test code = 3356053921) 75 mg/dL 70-110 CREATININE (test code = 6384375573) 0.51 mg/dL 0.60-1.25 L TOTAL BILI (test code = 5736700922) 0.5 mg/dL 0.1-1.1 CALCIUM (test code = 1367132125) 8.9 mg/dL 8.6-10.6 T PROTEIN (test code = 8785467649) 7.2 g/dL 6.3-8.2 ALBUMIN (test code = 4372906136) 4.5 g/dL 3.5-5.0 ALK PHOS (test code = 5685944218) 46 U/L 34-122 ALTv (test code = 1742-6) 15 U/L 5-50 AST(SGOT) (test code = 3198677941) 24 U/L 13-40 eGFR (test code = 47150-2) 119.7 mL/min/1.73m2 CKD-EPI eGFR (2020). Assuming creatinine has been stable day-to-day for at least three months, the eGFR indicates Category G1 (>= 90 mL/min/1.73 m2) Lab Interpretation (test code = 24864-9) Abnormal [facility]2024-[facility]-13 02:31:43* Test Item Value Reference Range Interpretation Comme nts LIPASE (test code = 3642269009) 121 U/L 0-220 Lab Interpretation (test cod e = 72095-0) Normal [facility] ArlingtonProthrombin Time / [id number] 02:21:02* Test Item Value Reference Range Interpretation Comme nts PROTIME PATIENT (test code = 5964-2) 10.5 10.1-12.6 INR (test code = 6301-6) 0.9 Normal INR <1.1; Warfarin Therapeutic range 2.0 to 3.0 or 2.5 to 3.5, depending upon the indications. Lab Interpretation (test code = 51600-0) Normal [facility] Arlington[facility]b with [id number] 02:14:04* Test Item Value Reference Range Interpretation [...] 34.0 g/dL 31.2-35.0 RDW-SD (test code = 27040-7) 49.1 fL 38.5-51.6 RDW-CV (test code = 788-0) 13.5 % 12.1-15.4 PLT (test code = 777-3) 260 150-328 MPV (test code = 55516-1) 8.7 fL 9.8-13.0 L NRBC/100 WBC (test code = 4620587992) 0.0 0.0-10.0 NRBC x10^3 (test code = 4439060606) See_Comment [Automated messa ge] The system which generated this result transmitted reference range: 10*3/?L. The reference range was not used to interpret this result as normal/abnormal. GRAN MAT (NEUT) % (test code = 770-8) 64.3 % IMM GRAN % (test code = 5954133928) 0.90 % LYMPH % (test code = 736-9) 24.2 % MONO % (test code = 5905-5) 9.1 % EOS % (test code = 713-8) 0.7 % BASO % (test code = 706-2) 0.8 % GRAN MAT x10^3(ANC) (test code = 4293330965) 8.73 10*3/uL 1.99-6.95 H IMM GRAN x10^3 (test code = 6987065832) 0.12 10*3/uL 0.00-0.06 H LYMPH x10^3 (test code = 731-0) 3.28 10*3/uL 1.09-3.23 H MONO x10^3 (test code = 742-7) 1.23 10*3/uL 0.36-1.02 H EOS x10^3 (test code = 711-2) 0.10 10*3/uL 0.06-0.53 BASO x10^3 (test code = 704-7) 0.11 10*3/uL 0.01-0.09 H Lab Interpretation (test code = 24290-4) [facility] [id number] 10:16:22* Test Item Value Reference Range Interpretation Comments TROPONIN I (test code = 0373123648) 0.007 ng/mL See_Comment [Automated message] The system [...] of biotin. Lab Interpretation (test code = 67519-5) Normal [facility] [id number] 10:13:01* Test Item Value Reference Range Interpretation Comme nts NT-proBNP (test code = 1113478053) 52 pg/mL See_Comment [Automated message] The system which generated this result transmitted reference range: <=125. The reference range was not used to interpret this result as normal/abnormal. LOUISE (test code = LOUISE) Biotin has been reported to cause a negative bias, interpret results relative to patient's use of biotin. Lab Interpretation (test code = 29515-0) Normal [facility] METABOLIC PANEL (07238)2022-02-20 10:04:02* Test Item Value Reference Range Interpretation Comme nts NA (test code = 1109426545) 137 mmol/L 135-145 K (test code = 2674458815) 3.6 mmol/L 3.5-5.0 CL (test code = 4438034114) 99 mmol/L 98-108 CO2 TOTAL (test code = 7115343174) 25 mmol/L 23-31 AGAP (test code = 4510218752) 2-16 BUN (test code = 7067557875) 6 mg/dL 7-23 L GLUCOSE (test code = 9579907591) 88 mg/dL 70-110 CREATININE (test code = 2145139916) 0.55 mg/dL 0.60-1.25 L TOTAL BILI (test code = 6337822882) 0.8 mg/dL 0.1-1.1 CALCIUM (test code = 0252890444) 8.9 mg/dL 8.6-10.6 T PROTEIN (test code = 6378854662) 7.5 g/dL 6.3-8.2 ALBUMIN (test code = 7485337188) 4.8 g/dL 3.5-5.0 ALK PHOS (test code = 7987904278) 113 U/L 34-122 ALTv (test code = 1742-6) 84 U/L 5-50 H AST(SGOT) (test code = 3941155827) 107 U/L 13-40 H eGFR (test code = 4315312585) mL/min/1.73m2 LOUISE (test code = LOUISE) Association [...] imaging tests). Lab Interpretation (test code = 44233-0) [facility]normal [facility], [id number] 10:03:21* Test Item Value Reference Range Interpretation Comme nts LIPASE (test code = 9429276828) 193 U/L 0-220 Lab Interpretation (test cod e = 75260-3) Normal [facility] WITH [id number] 09:39:17* Test Item Value Reference Range Interpretation Comme nts WBC (test code = 6690-2) See_Comment [Automated [employer]] The system which generated this result transmitted [...] g/dL 31.2-35.0 H RDW-SD (test code = 79794-9) 44.4 fL 38.5-51.6 RDW-CV (test code = 788-0) 11.9 % 12.1-15.4 L PLT (test code = 777-3) See_Comment [Automated messa ge] The system which generated this result transmitted reference range: 150 - 328 10*3/?L. The reference range was not used to interpret this result as normal/abnormal. MPV (test code = 91946-2) 9.2 fL 9.8-13.0 L NRBC/100 WBC (test code = 4817268680) See_Comment [Automated [employer]] The system which generated this result transmitted reference range: 0.0 - 10.0 /100 WBCs. The reference range was not used to interpret this result as normal/abnormal. NRBC x10^3 (test code = 4938086570) <0.01 See_Comment [Automated messa ge] The system which generated this result transmitted reference range: 10*3/?L. The reference range was not used to interpret this result as normal/abnormal. GRAN MAT (NEUT) % (test code = 770-8) 69.9 % IMM GRAN % (test code = 3048137504) 1.50 % LYMPH % (test code = 736-9) 18.9 % MONO % (test code = 5905-5) 7.0 % EOS % (test code = 713-8) 1.9 % BASO % (test code = 706-2) 0.8 % GRAN MAT x10^3(ANC) (test code = 0802592778) 7.15 10*3/uL 1.99-6.95 H IMM GRAN x10^3 (test code = 1921011739) 0.15 10*3/uL 0.00-0.06 H LYMPH x10^3 (test code = 731-0) 1.93 10*3/uL 1.09-3.23 MONO x10^3 (test code = 742-7) 0.72 10*3/uL 0.36-1.02 EOS x10^3 (test code = 711-2) 0.19 10*3/uL 0.06-0.53 BASO x10^3 (test code = 704-7) 0.08 10*3/uL 0.01-0.09 Lab Interpretation (test code = 46948-4) Abnormal [facility] Notes Date/Time Note Provider Source 2024-02-17 21:43:52 5764-28-94K41:43:52F ormatting of this note might be different from the original.No answer in lobby. 13851-2Zprejtjvt department WgmnPC2793-49-53M84:44:07Emergen department NoteTXT1.2.840.284037.1.13.104.2.7 .2.093920|[id number] for patient fvrl06043-9TwssHCQGLPUUQFERpeuyuqe d C-CDA narrative [id number] J Hoot RNUT[address] Hd[id number] 74UCNHQYWMNKJNUXIWVRYXEX3696-63-86 T21:44:071.2.840.568471.1.72.3.15| 1.2.840.507806.1.13.104.2.7.2.7278 [id number] Angy Turner RN [facility] 2024-02-17 21:42:10 8029-61-51F18:42:10F ormatting of this note might be different from the original.Pt's blood pressure cuff and pulse ox found lying on chair. Called for patient in lobby 2 times, no answer. No one in lobby. 71157-0Lqpucxgma department TujvMZ8946-78-52S02:44:10[facility] NoteTXT1.2.840.044157.1.13.104.2.7 .2.616384|[id number] for patient hnxa94976-3DhyzPMCXCOYKZLCNgzfrjhx d C-CDA narrative [id number] A. Campbell [id number] 51WDQQAUXYYFHATRNPCLYVJW4096-63-69 T21:44:101.2.840.220857.1.72.3.15| 1.2.840.116303.1.13.104.2.7.2.7278 [id number] Sierra Samaniego RN [facility] 2024-02-17 21:41:09 7861-49-59W06:41:09F ormatting of this note might be different from the original.Pt not in lobby or in room. No answer in lobby. [address]34-6Ekdvcozzb[address] EwifRQ4865-87-71T13:41:40[facility] NoteTXT1.2.840.380747.1.13.104.2.7 .2.518453|[id number] for patient tdug69745-5HflnOQNPWPYNLSDAdqukfsy d C-CDA narrative text[id number] 56AMDRGDDOMFZJSYOPDBDPKB4994-04-84 T21:41:401.2.840.644320.1.72.3.15| 1.2.840.120630.1.13.104.2.7.2.7278 [id number] [facility] 2024-02-17 21:14:29 6081-32-50R08:14:29F ormatting of this note might be different from the original.Pt not in FT01-01 and no answer in lobby. 90787-0Ncwkqkgdh department KazbBK8071-25-12H61:15:32[facility] department NoteTXT1.2.840.755681.1.13.104.2.7 .2.014212|[id number] for patient eyxj07198-7WcebSSTDIOXDCLQZhauomxj d C-CDA narrative text[id number] 47RGTTIRRQYNMGOOGWYYGSTO3015 T21:15:321.2.840.275721.1.72.3.15| 1.2.840.592956.1.13.104.2.7.2.7278 79_[id number] [facility] 2024-02-17 20:48:50 4390-70-50I43:48:50F ormatting of this note might be different from the original.Pt arrives ambulatory to ED c/o SOB, right upper abdominal pain, and left leg and hip pain. Pt states that he has been on prednisone for about 5 yrs which had given him osteoporosis which is causing his leg pain. Reports hx of COPD, o2 is generally @ 91 he says. 43158-6Asfqjeozx department Triage hgfuAG2831-32-06C10:53:54[facility] department Triage noteTXT1.2.840.358046.1.13.104.2.7 .2.906132|[id number] for patient ztjv16900-0Fepkvbnsz department NoteLNNARRATIVEFormatted C-CDA narrative [id number] L Dl RN[id number] 52TOCNGUAONQCTFJXHEBWOBF3169-78-48 T20:53:541.2.840.739357.1.72.3.15| 1.2.840.271034.1.13.104.2.7.2.7278 79_[id number] Leah Quarles Dl MACHUCA [facility] 2024-02-08 21:37:56 2445-61-82M31:37:56F ormatting of this note might be different from the original.Pt left AMA [address]5810-1Izveqqzuo[address] CfurEV9392-19-73A90:38:11[facility] department NoteTXT1.2.840.335504.1.13.104.2.7 .2.348565|[id number] for patient sisv96691-5XxorEIYIYOOGYLLZcmtphvn d C-CDA narrative racv605226843Saerg M Martinez RN[address]TXTX[address] 53FPFYKUKORJRENQXKTIXHRM0757-96-18 T21:38:111.2.840.111831.1.72.3.15| 1.2.840.073197.1.13.104.2.7.2.7278 79_[id number] Kylie Foster RN [facility] 2024-02-08 21:32:00 5925-86-54G75:32:00F ormatting of this note might be different [...] ambulatory with steady [place], [place] [address]-0Pxxyfxjqp department KxmpUM1108-84-61P69:40:32[facility] NoteTXT1.2.840.049906.1.13.104.2.7 .2.121422|[id number] for patient xmvu97160-6WnazSJRUVRJWOVPTeuanfbo d C-CDA narrative FarmBot[address]TXTX[address] 29MUDWJJFGVLZJUMJHZENZSV0895-89-18 T21:40:321.2.840.514691.1.72.3.15| 1.2.840.132833.1.13.104.2.7.2.7278 79_[id number] [facility] 2024-02-08 20:54:38 7978-05-29L45:54:38F ormatting of this note might be different from the original.Pt states he uses O2 at home, portable O2 is broken [address]673-4Cashrpbsb[address] DnrvXV7867-59-70K05:55:13[facility] department NoteTXT1.2.840.933709.1.13.104.2.7 .2.649416|[id number] for patient suhb90196-3GwacVQBYTXABNPQKtpbidgq d C-CDA narrative FarmBot[address]TXTX[address] 35EWGVUFRLYBELSKOFMVLMJX2246-60-01 T20:55:131.2.840.426659.1.72.3.15| 1.2.840.515268.1.13.104.2.7.2.7278 79_[id number] [facility] 2024-02-08 20:51:11 4652-69-76Q73:51:11F ormatting of this note might be different from the original.Pt ambulates with cane 39404-7Snhhruyze department RafoVM5134-11-33E21:51:26[facility] department NoteTXT1.2.840.773634.1.13.104.2.7 .2.754079|[id number] for patient uhqt90220-9FqnxUNSDDMATDUOQprbgdjs d C-CDA narrative textUT[address] CzpiVhqdsqncjEzlwfcukmPOEG85355330 83MEDHAXPFYXWSFOZLAAJLNT0201-01-97 T20:51:261.2.840.611929.1.72.3.15| 1.2.840.023607.1.13.104.2.7.2.7278 79_[id number] [facility] 2024-02-08 20:43:13 7524-49-23T02:43:13F ormatting of this note might be different from the original.CC: Pt arrives SOB after leaving [place] earlier in the shift. He reports he [...] 3 BC powders and drank 3 beers." 52936-6Gkttgdllf department Triage slyrFJ4372-79-95K28:48:36[facility] department Triage noteTXT1.2.840.666531.1.13.104.2.7 .2.524559|1341113376YQJvxhvlryg for patient lhns09485-7Beshmettl department NoteLNNARRATIVEFormatted C-CDA narrative [id number] Sarika King RN[address]TXTX[address] 59HZGTGNTZXGZVEWXDRLGESL9629-03-56 T20:48:361.2.840.100730.1.72.3.15| 1.2.840.544958.1.13.104.2.7.2.7278 79_[id number] Leah Sarika King RN [facility] 2024-02-08 17:04:05 4451-12-22U71:04:05F ormatting of this note might be different [...] of the department with a steady gait. 67463-0Hvmifcfrc department IcizKT0932-37-36K51:05:22[facility] department NoteTXT1.2.840.435422.1.13.104.2.7 .2.491296|[id number] for patient rhzy34224-5TdosZWGCZRJMZOQOlwgpyje d C-CDA narrative afmp910868344Awcs M Hayes RN[id number] 89EFMPNRJGBPFXIYIGPUNELO4668-42-46 T17:05:221.2.840.559742.1.72.3.15| 1.2.840.615187.1.13.104.2.7.2.7278 79_[id number] Allison Zhang RN [facility] 2024-02-08 14:23:02 1732-98-34E29:23:02F ormatting of this note might be different from the original.Pt ambulates with a cane 75192-5Mntxxcgiz department XbnzAW6090-72-11S83:23:12[facility] department NoteTXT1.2.840.609959.1.13.104.2.7 .2.524473|9327886561VBJihtfjbmy for patient rvtl24500-6QbtwFUTGRFWDIRLMrgrolkw d C-CDA narrative rfiw184644418YqgkkKylie Foster RN[address] AqzwFokzkpqlsUvtdanuohRUNJ39108641 74TPPVUQOCHKKIBZWAYODHLA5523-92-45 T14:23:121.2.840.133672.1.72.3.15| 1.2.840.075946.1.13.104.2.7.2.7278 79_[id number] Kylie Foster RN [facility] 2024-02-08 14:13:15 8382-80-37Y05:13:15F ormatting of this note might be different [...] only thing that helps." Face is flushed. 10354-8Trakftydp department Triage ipbrXJ8350-31-39X25:17:26[facility] department Triage noteTXT1.2.840.872880.1.13.104.2.7 .2.979529|3790293864NJOrvlywfzc for patient dgnz79459-7Upclzufph department NoteLNNARRATIVEFormatted C-CDA narrative [id number] Traci MACHUCAUT[address]TXTX[address] 82GDINFQYSNIOPIRPOHILFLH3149-28-62 T14:17:261.2.840.113446.1.72.3.15| 1.2.840.800656.1.13.104.2.7.2.7278 79_[id number] Hali Aviles RN [facility] 2024-01-14 06:16:25 6718-09-90Y18:16:25F ormatting of this note might be different [...] w/d, pt leaving in no apparent distress, 77030-1Oidherbyh department KeylDP7647-11-62B07:17:20[facility] department NoteTXT1.2.840.749130.1.13.104.2.7 .2.705971|9732414760AECpezxphlh for patient qcbe87839-1FpvrIFYOGHRJWQSKmcdbdrk d C-CDA narrative text[address]TXTX[address] 53YOHYSJNGKIVDXDORSZZUTQ8244-09-71 T06:17:201.2.840.947536.1.72.3.15| 1.2.840.343982.1.13.104.2.7.2.7278 79_[id number] [facility] 2024-01-14 04:49:43 7667-02-92G33:49:43F ormatting of this note might be different [...] ext without difficulty, amb with steady gait 89606-1Caijhhtxz department Triage ozutQH3937-17-22Z02:55:49[facility] Triage noteTXT1.2.840.488692.1.13.104.2.7 .2.204268|7814763906CTOoxplayhd for patient ivlu70194-2Uypdjzpok department NoteLNNARRATIVEFormatted C-CDA narrative [id number] R Shehadeh RNUT[address] StreetXsjnZwfkmsbnlJquqitdvfRNDD35918629 19SHWADCCZGMHRPCXAJILNPL9730-69-35 T04:55:491.2.840.907252.1.72.3.15| 1.2.840.109598.1.13.104.2.7.2.7278 79_[id number] Leah King RN [facility] 2024-01-14 04:43:00 0495-03-06A80:43:00A ssociated Order(s): EKG-12 Lead ROUTINE ONCEPre-Procedure Diagnose(s): Chest pain, unspecified typePost-Procedure Diagnose(s): Chest pain, unspecified type [facility] Emergency Department NotePatient Name: Randy BrionesDanilda of : 1970 53 year old maleTreatment Room: TX1/TD3Cezbbai Record Number: [id number] Care Physician: Adrianna King Escorted by: Family [5]Mode of Arrival: Personal means [1]EMS Treatment Prior to ED Arrival:GLUING PRESSMAN treatment: NTGPTA treatment comments: 0.4 mg SL taken GLUING PRESSMAN, no releifTravel and Exposure Screening:SymptomsDoes patient have [...] Resident: Max Nur Results:Lab ResultsCOMP. METABOLIC PANEL (75738) - AbnormalResult Value Ref RangeNA 138 135 [...] 49 (*) 13 - 40 U/LeGFR 93.3 mL/min/1.49q8BQX WITH DIFF - AbnormalWBC 11.59 (*) 4.20 [...] 220 U/LCOVID-19 (ID NOW RAPID TESTING) - OgvrdnUYHW-YeS-9 Rapid ID NOW Not Detected Not DetectedETHANOLALCOHOL 62 mg/dLEKG:If EKG completed, see Procedure Note.Orders and Treatments:Orders Placed This EncounterProcedures XR CHEST 1 VW TROPONIN I COMP. METABOLIC PANEL (06131) LIPASE, SERUM CBC WITH DIFF N-Terminal Pro-Bnp Ethanol COVID-19 (ID NOW TESTING) Lab Only COVID Interpretation O2 Per ProtocolOrders Placed This EncounterMedications morpHINE (4 mg/mL) injection 4 mg ondansetron (ZOFRAN (PF)) injection 4 mg ipratropium-albuteroL (DUONEB) 0.5 mg-3 mg(2.5 mg base)/3 mL nebulizer solution 3 mLFirst Provider Eval:ED EventsDate/Time Event User Jsaykodu39/07/24 0510 Medical Screening Begins JAC NAVARRO MD --01/14/24 0510 First Provider Evaluation JAC NAVARRO MD --ED COURSEDiagnosis/Impression as of 01/14/24 0605Chest pain, unspecified typeBronchitisProcedures:EKG-12 Lead ROUTINE ONCEDate/Time: 01/14/2024 5:24 AMPerformed by: Jac Navarro MDAuthorized by: Jac Navarro MDECYovani interpreted by ED Physician in the absence of a tin container 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: yesPrevious ECG:Previous ECG: Compared to currentSimilarity: No [...] on fileFollow-up:Electronically signed by:Jac Navarro MD01/14/24 0600 44942-4Nwigrwwfu Emergency department HgzjOS0649-94-52W17:00:50Physician Emergency department NoteTXT1.2.840.297434.1.13.104.2.7 .2.423350|[id number] for patient gzyn01652-8Mtgyurztm department NoteLNNARRATIVEFormatted C-CDA narrative textUT97 Cannon StreetQuwjPbxnylysnQrptohkbwBWDF16521155 81KXMEQOXTPLNNUQIMOTYZYA4093-38-13 T06:00:501.2.840.912964.1.72.3.15| 1.2.840.123157.1.13.104.2.7.2.7278 79_[id number] [facility] 2023-12-22 23:12:16 8188-51-30K14:12:16F ormatting of this note might be different [...] with steady gait, in no apparent distress, 70657-8Hmctpjhsi department HifpYF8453-31-03A47:13:50[facility] NoteTXT1.2.840.552873.1.13.104.2.7 .2.090360|6763914721HOQiuxmxmqk for patient fhgw16015-9PxerNPKVCXUFOIBPmfipnyq d C-CDA narrative bmfw829120263Vrwco E Gillispie RN[address]TXTX[address] 91GBWKEMCBMPFDKBXRMSNGOY1011-27-10 T23:13:501.2.840.214553.1.72.3.15| 1.2.840.884439.1.13.104.2.7.2.7278 79_[id number] Mary Magaña RN [facility] 2023-12-22 21:41:55 4100-33-95G66:41:55F ormatting of this note might be different from the original.Pt arrives ambulatory to ED reporting bleeding with stools and 10/10 abdominal pain. States he was here last night but had to leave before receiving results d/t having to work. Says the pain became worse so he came back in. 26006-4Sduuxkssr department Triage ultlTK2814-57-53V27:48:52[facility] Triage noteTXT1.2.840.369780.1.13.104.2.7 .2.783144|5286001229YDLndqeslfn for patient gsnw16715-1Arcrwazsw department NoteLNNARRATIVEFormatted C-CDA narrative afhf488085629Skllru L Williams RN[address]TXTX[address] 79VOWESOWOEVYINHIHGHDZEH0968-84-58 T21:48:521.2.840.708792.1.72.3.15| 1.2.840.241163.1.13.104.2.7.2.7278 79_[id number] Leah Lizama RN [facility] 2023-12-21 21:31:00 8547-00-87A40:31:00F ormatting of this note might be different [...] with steady gait, appears in no distress. 84512-7Fqzsmfmgd department BoifTD6427-07-76D36:38:39[facility] NoteTXT1.2.840.751800.1.13.104.2.7 .2.933519|[id number] for patient xert54822-6UqnmUIDVPIFFPYOSohlcace d C-CDA narrative xlmn661529367GdrnqMary Magaña RN[address]vdGalvestonGalvestonTXTX[address] 72YTFOFDJUACKKFAFXQPMNLH7482-23-96 T21:38:391.2.840.911126.1.72.3.15| 1.2.840.295518.1.13.104.2.7.2.7278 79_[id number] Mary Magaña RN [facility] 2023-12-21 21:30:00 6742-80-33C70:30:00F ormatting of this note might be different from the original.Pt wished to leave AMA. Pt states " yall were wonderful but 3am come real early." 22154-4Casosegny department QbpaDT3482-74-76N42:36:58[facility] NoteTXT1.2.840.527260.1.13.104.2.7 .2.546400|3515715041CBZbpzhhuou for patient fqfk17023-6VtlcMNWPKKEQJVBQnzxevjh d C-CDA narrative text[address]TXTX[address] 83NMKJSBTFPPQFLVAMTGQFMS2476-98-95 T21:36:581.2.840.297272.1.72.3.15| 1.2.840.922852.1.13.104.2.7.2.7278 79_[id number] [facility] 2023-12-21 21:26:22 2697-97-11Z64:26:22F ormatting of this note might be different from the original.Pt asking to go outside and smoke, wants to go home and eat. Pt educated on risks of leaving AMA. Provider informed pt is in pain. [address] JdycHD0795-41-60T73:33:35[facility] NoteTXT1.2.840.533902.1.13.104.2.7 .2.928987|[id number] for patient aoey83298-3ElamSVPGJLDICBLMxtluqmi d C-CDA narrative qqqc299036526Ufcrdcyee BRADFORD[address]TXTX[address] 24ETZQFIVCWTDXJCNUAMHTVA7738-59-66 T21:33:351.2.840.968400.1.72.3.15| 1.2.840.856160.1.13.104.2.7.2.7278 79_[id number] Leah King RN [facility] 2023-12-21 19:31:50 3997-11-03M53:31:50F ormatting of this note might be different from the original.Pt arrived ambulatory with complaints of bright red rectal bleeding and generalized abdominal pain this afternoon. Pt states his stool was normal consistency but continuous bright red blood. 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 States he vomits all the time but not something new today. 33373-1Lvmurqual department Triage ozksCL2183-81-91O97:33:28[facility] department Triage noteTXT1.2.840.569739.1.13.104.2.7 .2.994123|[id number] for patient etbj70765-6Zwhidenlq[address] [place] [address] NoteLNNARRATIVEFormatted C-CDA narrative mtwk650228113Blcako D Roman RN[address]vdGal[place]onGal[place]onTXTX[address] 64WICHDNSPCTDCBHDTOOAPLZ0291-71-72 T19:33:281.2.840.902199.1.72.3.15| 1.2.840.965694.1.13.104.2.7.2.7278 79_[id number] Gabi Esqueda RN [facility] 2023-11-10 20:13:39 1134-20-32L50:13:39F ormatting of this note might be different from the original.Pt requesting to leave AMA. ERP notified. Pt counseled to remain, risks of leaving AMA including discussed with pt. Pt continued to decline further ER evaluation at this time. AMA papers signed, witnessed, and placed on patient's chart. Pt left ambulatory. VS stable, no ataxia noted, GCS 15, A&Ox4. 41253-7Zdvrrevwu department LcpxMJ8858-71-97I94:13:52[facility] department NoteTXT1.2.840.622205.1.13.104.2.7 .2.608895|[id number] for patient gapo12834-6IadzZKKHZHLOADDNrrjsuhn d C-CDA narrative uilb013585144AjkvdrBriseida Medrano RNUT[address]TXTX[address] 36GWJAZXQUPBUBBXTNUCXUZG8944-29-91 T20:13:521.2.840.707015.1.72.3.15| 1.2.840.166632.1.13.104.2.7.2.7278 79_[id number] Briseida Medrano RN [facility] 2023-11-10 19:30:29 5919-33-84O54:30:29F ormatting of this note might be different from the original.Patient arrived to ED c/o SOB and COPD exacerbation. Symptoms started this morning. Patient wears 3L NC at home. Patient is a smoker. Patient states having the chills, diarrhea, and vomiting. States having sharp pains in chest from coughing. 14089-5Hsobeazmw department Triage lgnoFB6185-76-06C20:35:27[facility] department Triage noteTXT1.2.840.473148.1.13.104.2.7 .2.071354|[id number] for patient wjwo68730-8Jqwlxptdq department NoteLNNARRATIVEFormatted C-CDA narrative ylln785533059Uykboe-Nqiyg McInnis RNUT[address] StreetTXTX[address] 92GABKRRBTJFFBVYSYXRBTBX3840-57-32 T19:35:271.2.840.701228.1.72.3.15| 1.2.840.838340.1.13.104.2.7.2.7278 79_[id number] Sreedhar Gomez RN [facility]
[2024-05-07] MEDS ORDERED: METHYLPREDNISOLONE 125 MG INJ ONE (03:41)
[2024-05-07] MEDS ORDERED: IPRATROPIUM BROM 0.5MG/2.5ML ONE (03:41)
[2024-05-07] MEDS ORDERED: ALBUTEROL 2.5 MG/3 ML NEB SOL ONE (03:41)
[2024-05-07] MEDS ORDERED: ASPIRIN 81 MG CHEWABLE TABLET ONE (03:42)
[2024-05-07 05:16] LABS: Absolute Basophils 0.1 K/uL (0-0.5); Absolute Eosinophils 0.1 K/uL (0-0.5); Absolute Lymphocytes (CBC) 2.8 K/uL (0.7-4.9); Absolute Monocytes 0.9 K/uL (0.1-1.3); Absolute Neutrophil 11.9 K/uL (1.8-8.0); Basophils % 0.9 % (0-1.3); Eosinophils % 0.6 % (0-4.4); Hematocrit 37.8 % (39.6-49.0); Hemoglobin 12.6 g/dL (13.6-17.9); Lymphocytes % 17.9 % (15.3-44.8); MCH 33.1 pg (27.0-35.0); MCHC 33.2 g/dL (32.0-36.0); MCV 99.7 fL (80-100); MPV 6.8 fL (7.6-11.3); Monocytes % 5.4 % (3.3-12.3); Neutrophils % 75.2 % (41.7-73.7); Nucleated RBC Absolute Count 0.1 (0-0); Nucleated Red Blood Cells % 0.4 % (0-0); PT Prothrombin Time 10.7 SECONDS (9.4-12.5); Platelets 382 thou/uL (152-406); Protime INR 0.97
[2024-05-07 06:06] LABS: ALT/SGPT 61 U/L (16-61); AST/SGOT 50 U/L (15-37); Albumin 3.5 g/dL (3.4-5.0); Alkaline Phosphatase 54 U/L (45-117); Anion Gap 12.3 mEq/L (5.0-15.0); BUN Blood Urea Nitrogen 10 mg/dL (7-18); Bicarbonate 26 mEq/L (21-32); Bilirubin Total 0.5 mg/dL (0.2-1.0); Globulin 3.5 g/dL (2.3-3.5); Glomerular Filtration Rate 111 ml/min (=/>90); Glucose Level 72 mg/dL (74-106); Magnesium 1.8 mg/dL (1.6-2.4); NT PRO-BNP 424 pg/mL (<125); Potassium 3.3 mEq/L (3.5-5.1); Sodium Level 135 mEq/L (136-145); Troponin High Sensitivity 5.8 pg/mL (<58.9)
[2024-05-07 06:25] LABS: Bilirubin Direct < 0.2 mg/dL (0-0.2); Bilirubin Indirect, Calculated 0.3 mg/dL (0.2-0.8)
--- NOTE | 2024-05-07 06:30 | EDPHYS ---
Physician Documentation [facility] Name: Randy Briones Age: 53 yrs Sex: Male : 1970 Arrival Date: 05/07/2024 Time: 03:18 Bed 14 Private MD: ED Physician Bg Briones HPI: 05/07 03:30 This 53 yrs old Male presents to ER via EMS with complaints of Shortness of Breath. cp 03:30 The patient has shortness of breath at rest. cp 03:30 Onset: The symptoms/episode began/occurred today. cp 03:30 Duration: The symptoms are continuous. cp 03:30 Associated signs and symptoms: Pertinent positives: chest pain, Pertinent negatives: cp productive cough, fever. Severity of symptoms: in the emergency department the symptoms have improved mildly. Historical: - Allergies: 03:38 Lisinopril; ha1 - PMHx: 03:38 Alcoholism; COPD; Hepatitis B (Hypertension); home 02 3LNC PRN; Hypertension; ha1 Osteoporosis; - PSHx: 03:38 Amputation of left index finger; ha1 - Immunization history:: Adult Immunizations unknown. - Infectious Disease History:: Denies. - Social history:: Smoking status: Patient reports the use of cigarette tobacco products, smokes one pack cigarettes per day. ROS: 03:33 Constitutional: Negative for body aches, chills, fever, poor PO intake, cp 03:33 Cardiovascular: Negative for chest pain, edema, palpitations, cp 03:33 Respiratory: Positive for shortness of breath, at rest. 03:33 Abdomen/GI: Negative for abdominal pain, vomiting, diarrhea, constipation, 03:33 Neuro: Negative for altered mental status, 03:33 Eyes: Negative for injury, pain, redness, and discharge, cp 03:33 ENT: Negative for drainage from ear(s), ear pain, sore throat, difficulty swallowing, cp difficulty handling secretions, 03:33 All other systems are negative, Exam: 03:25 ECG was reviewed by the Attending Physician. cp 03:35 Constitutional: The patient appears in no acute distress, alert, awake, cp non-diaphoretic, non-toxic, well developed, well nourished, uncomfortable, 03:35 Head/Face: Normocephalic, atraumatic. cp 03:35 Eyes: Periorbital structures: appear normal, Conjunctiva: normal, no exudate, no cp injection, Sclera: no appreciated abnormality, Lids and lashes: appear normal, bilaterally, 03:35 ENT: External ear(s): are unremarkable, Nose: is normal, Mouth: Lips: moist, Oral cp mucosa: moist, Posterior pharynx: Airway: no evidence of obstruction, patent, 03:35 Chest/axilla: Inspection: normal, 03:35 Cardiovascular: Rate: tachycardic, Rhythm: regular, 03:35 Respiratory: the patient does not display signs of respiratory distress, Respirations: labored breathing, that is mild, Breath sounds: bronchial sounds, that are mild, are heard diffusely, stridor, is not appreciated, wheezing: that is mild, is heard diffusely, 03:35 Abdomen/GI: Inspection: obese Bowel sounds: active, all quadrants, Palpation: abdomen is soft and non-tender, in all quadrants, 03:35 Neuro: Orientation: to person, place \T\ time. Mentation: is normal, Vital Signs: 03:21 BP 117 / 92; Pulse 106; Resp 25 S; Pulse Ox 100% on Nebulizer Mask; Weight 74.39 kg; ha1 04:30 BP 127 / 86; Pulse 98; Resp 18 S; Pulse Ox 100% on 2 lpm NC; jw7 05:30 BP 109 / 84; Pulse 98; Resp 12 S; Pulse Ox 97% on R/A; jw7 06:00 BP 105 / 95; Pulse 98; Resp 13 S; Temp 98(O); Pulse Ox 96% on R/A; jw7 MDM: 03:26 Patient medically screened. cp 04:00 Differential diagnosis: CHF exacerbation, Chronic Obstructive Pulmonary Disease cp pneumonia, Pneumothorax pulmonary edema, Pulmonary Embolism Sepsis Unstable Angina. 06:07 Data reviewed: vital signs, nurses notes. ED course: pt left before labs returned, akash because of pain, pt came in because of overdose, took too much meds at once. 06:08 Counseling: I had a detailed discussion with the patient and/or guardian regarding the cp historical points, exam findings, and any diagnostic results supporting the discharge/admit diagnosis, lab results, radiology results, to return to the emergency department if symptoms worsen or persist or if there are any questions or concerns that arise at home. Response to treatment: the patient's symptoms have markedly improved after treatment, and as a result, I will discharge patient. 06:08 Independent interpretation of the following test(s) in the Emergency Department EKG: cp See my EKG interpretation above. 05/07 03:25 Order name: Basic Metabolic Panel; Complete Time: 06:28 cp 05/07 03:25 Order name: CBC with Diff; Complete Time: 05:28 cp 05/07 05:28 Interpretation: Normal except: WBC 15.90; RBC 3.80; HGB 12.6; HCT 37.8; RDW 17.0; MPV cp 6.8; ASHU% 75.2; NEUT A 11.9. 05/07 03:25 Order name: LFT's; Complete Time: 06:28 cp 05/07 03:25 Order name: Magnesium; Complete Time: 06:28 cp 05/07 03:25 Order name: NT PRO-BNP; Complete Time: 06:28 cp 05/07 03:25 Order name: PT-INR; Complete Time: 05:28 cp 05/07 03:25 Order name: Troponin HS; Complete Time: 06:28 cp 05/07 03:25 Order name: XRAY Chest (1 view) 05/07 03:25 Order name: Cardiac monitoring; Complete Time: 03:35 cp 05/07 03:25 Order name: EKG - Nurse/Tech; Complete Time: 03:35 cp 05/07 03:25 Order name: IV Saline Lock; Complete Time: 04:51 cp 05/07 03:25 Order name: Labs collected and sent; Complete Time: 04:51 cp 05/07 03:25 Order name: O2 Per Protocol; Complete Time: 03:35 cp 05/07 03:25 Order name: O2 Sat Monitoring; Complete Time: 03:35 cp 05/07 05:20 Order name: Misc. Order: RECOLLECT GREEN TOP; Complete Time: 05:36 rv1 EC:25 Rate is 103 beats/min. Rhythm is regular. MI interval is normal. QRS interval is cp prolonged. QT interval is normal. T waves are Inverted in lead aVR. Interpreted by me. Reviewed by me. Administered Medications: 04:00 Drug: Aspirin PO Chewable Tablet 324 mg PO once; 81 mg tablets x 4 Route: PO; jw7 05:52 Follow up: Response: No adverse reaction; Marked relief of symptoms jw7 04:51 Drug: DuoNeb Nebulize (2.5 mg - 0.5 mg) 3 ml Nebulizer once Route: Nebulizer; jw7 05:52 Follow up: Response: No adverse reaction; Marked relief of symptoms jw7 05:52 Not Given (Patient Refused): [id number] mg IVP once jw7 06:30 Not Given (Patient Refused): potassiumeffervescent tablet 25 meq PO once; dissolve in 4 jw7 ounces of water or juice Disposition: 06:09 Co-signature as Attending Physician, Bg Briones MD I agree with the assessment and [facility] plan of care. Disposition Summary: 05/07/24 06:29 Discharge Ordered Notes: Location: Home akash Problem: new akash Symptoms: have improved akash Condition: Stable akash Diagnosis - Alcohol abuse akash - COPD/ Chronic obstructive pulmonary disease with (acute) exacerbation akash - Elevated white blood cell count akash - Hypokalemia akash Followup: akash - With: Private Physician - When: 2 - 3 days - Reason: Recheck today's complaints, Continuance of care, Re-evaluation by your physician Followup: akash - With: Mayur Martinez MD - When: 2 - 3 days - Reason: Recheck today's complaints, Re-evaluation by your physician Discharge Instructions: - Discharge Summary Sheet akash - Chronic Bronchitis, Adult akash - Chronic Obstructive Pulmonary Disease akash - Potassium Content of Foods akash - Chronic Obstructive Pulmonary Disease Exacerbation akash - Chronic Obstructive Pulmonary Disease, [id number] akash - Cough, Adult, Deuv-ii-[id number] akash - Cough, Adult akash - Hypokalemia akash Forms: - Medication Reconciliation Form akash - Antibiotic Education akash - Prescription Opioid Use akash - Patient Portal Instructions kaash - Leadership Thank You Letter [facility] Prescriptions: - Prednisone 20 mg Oral Tablet - take 2 tablets ORAL route once daily for 5 days; 10 tablet; Refills: 0, Product akash Selection Permitted - levofloxacin 500 mg Oral tablet - take 1 tablet ORAL route once daily for 7 days; 7 tablet; Refills: 0, Product akash Selection Permitted Signatures: Dispatcher [employer] Bg Whitfield MD MD cha Page, Corey, PA PA cp Waits, Jodi, RN RN jw7 Lauren Bailey RN RN 1 Sherin Mitchell 1 Corrections: (The following items were deleted from the chart) 03:26 03:26 BASIC METABOLIC PANEL+C.LAB.BRZ ordered. [facility] EDLA 03: 03:26 CBC+H.LAB.BRZ ordered. [facility] : 03:26 HEPATIC FUNCTION+C.LAB.BRZ ordered. [facility] : 03:26 MAGNESIUM+C.LAB.BRZ ordered. [facility] 03: 03:26 PROBNP+C.LAB.BRZ ordered. [facility] : 03:26 PROTIME (+INR)+COAG.LAB.BRZ ordered. [facility] : 03:26 Troponin High Sensitivity+C.LAB.BRZ ordered. [facility] : 03:26 Chest Single View+RAD.RAD.BRZ ordered. [facility] 05/08 01:31 05/07 03:33 All other systems are negative, cp 05/08 01:35 05/07 06:33 Counseling: I had a detailed discussion with the patient and/or guardian cp regarding the historical points, exam findings, and any diagnostic results supporting the discharge/admit diagnosis, lab results, radiology results, to return to the emergency department if symptoms worsen or persist or if there are any questions or concerns that arise at home, cp 05/08 01:35 05/07 06:33 Response to treatment: the patient's symptoms have markedly improved after cp treatment, and as a result, I will discharge patient, cp
--- NOTE | 2024-05-07 06:30 | ER ---
Nurse's Notes [facility] Name: Randy Briones Age: 53 yrs Sex: Male : 1970 Arrival Date: 05/07/2024 Time: 03:18 Bed 14 Private MD: Diagnosis: Alcohol abuse;COPD/ Chronic obstructive pulmonary disease with (acute) exacerbation;Elevated white blood cell count;Hypokalemia Presentation: 05/07 03:21 Chief complaint: EMS states: reports SOB and chest pain. ha1 03:21 Coronavirus screen: Vaccine status: Patient reports being unvaccinated. Ebola Screen: ha1 No symptoms or risks identified at this time. Initial Sepsis Screen: Does the patient meet any 2 criteria? No. Patient's initial sepsis screen is negative. Does the patient have a suspected source of infection? No. Patient's initial sepsis screen is negative. Risk Assessment: Do you want to hurt yourself or someone else? Patient reports no desire to harm self or others. Onset of symptoms was May 07, 2024. 03:21 Method Of Arrival: EMS: [facility] ha1 03:21 Acuity: CANDACE 2 ha1 Triage Assessment: 03:21 General: Appears uncomfortable, Behavior is anxious, restless. Pain: Complains of pain ha1 in chest Pain does not radiate. Pain currently is 8 out of 10 on a pain scale. Quality of pain is described as heavy, pressure, Pain began 4 hours ago. Neuro: Level of Consciousness is awake, alert, obeys commands, Oriented to person, place, time, situation. Cardiovascular: Capillary refill < 3 seconds. Respiratory: Airway is patent Respiratory effort is using tripod position, Respiratory pattern is tachypnea. GI: No signs and/or symptoms were reported involving the gastrointestinal system. Abdomen is round distended. : No signs and/or symptoms were reported regarding the genitourinary system. Musculoskeletal: Circulation, motion, and sensation intact. Range of motion: intact in all extremities. 03:21 Cardiovascular: Reports chest pain, shortness of breath. Respiratory: Reports shortness ha1 of breath at rest. Historical: - Allergies: 03:38 Lisinopril; ha1 - PMHx: 03:38 Alcoholism; COPD; Hepatitis B (Hypertension); home 02 3LNC PRN; Hypertension; ha1 Osteoporosis; - PSHx: 03:38 Amputation of left index finger; ha1 - Immunization history:: Adult Immunizations unknown. - Infectious Disease History:: Denies. - Social history:: Smoking status: Patient reports the use of cigarette tobacco products, smokes one pack cigarettes per day. Screenin:40 [facility] ED Fall Risk Assessment (Adult) History of falling in the last 3 months, jw7 including since admission No falls in past 3 months (0 pts) Confusion or Disorientation No (0 pts) Intoxicated or Sedated No (0 pts) Impaired Gait No (0 pts) Mobility Assist Device Used No (0 pt) Altered Elimination No (0 pt) Score/Fall Risk Level 0 - 2 = Low Risk Oriented to surroundings, Maintained a safe environment, Educated pt \T\ family on fall prevention, incl call for assistance when getting out of bed. Abuse screen: Denies threats or abuse. Denies injuries from another. Nutritional screening: No deficits noted. Tuberculosis screening: No symptoms or risk factors identified. Assessment: 03:40 General: Appears in no apparent distress. uncomfortable, Behavior is calm, cooperative, jw7 appropriate for age. Pain: Complains of pain in chest Pain does not radiate. Quality of pain is described as pressure, Pain began suddenly, Is continuous. Neuro: Level of Consciousness is awake, alert, obeys commands, Oriented to person, place, time, situation, Appropriate for age. 03:40 Cardiovascular: Heart tones S1 S2 present Capillary refill < 3 seconds Clubbing of nail jw7 beds is absent JVD is absent Patient's skin is warm and dry. Rhythm is sinus tachycardia. Respiratory: Airway is patent Trachea midline Respiratory effort is even, unlabored, Respiratory pattern is regular, symmetrical, tachypnea. GI: Abdomen is round distended, Bowel sounds present X 4 quads. Abd is soft and non tender X 4 quads. : No deficits noted. No signs and/or symptoms were reported regarding the genitourinary system. EENT: No deficits noted. No signs and/or symptoms were reported regarding the EENT system. Derm: Skin is intact, Skin is dry, Skin is normal, Skin temperature is warm. Musculoskeletal: Circulation, motion, and sensation intact. Range of motion: intact in all extremities. 04:30 Reassessment: Patient appears in no apparent distress at this time. No changes from jw7 previously documented assessment. Patient and/or family updated on plan of care and expected duration. Pain level reassessed. Patient is alert, oriented x 3, equal unlabored respirations, skin warm/dry/pink. 05:31 Reassessment: Patient appears in no apparent distress at this time. No changes from jw7 previously documented assessment. Patient and/or family updated on plan of care and expected duration. Pain level reassessed. Patient is alert, oriented x 3, equal unlabored respirations, skin warm/dry/pink. 06:30 Reassessment: Patient appears in no apparent distress at this time. No changes from jw7 previously documented assessment. Patient and/or family updated on plan of care and expected duration. Pain level reassessed. Patient is alert, oriented x 3, equal unlabored respirations, skin warm/dry/pink. Vital Signs: 03:21 BP 117 / 92; Pulse 106; Resp 25 S; Pulse Ox 100% on Nebulizer Mask; Weight 74.39 kg; ha1 04:30 BP 127 / 86; Pulse 98; Resp 18 S; Pulse Ox 100% on 2 lpm NC; jw7 05:30 BP 109 / 84; Pulse 98; Resp 12 S; Pulse Ox 97% on R/A; jw7 06:00 BP 105 / 95; Pulse 98; Resp 13 S; Temp 98(O); Pulse Ox 96% on R/A; jw7 ED Course: 03:21 Patient arrived in ED. vc1 03:25 Bg Pro PA is PHCP. cp 03:25 Bg Briones MD is Attending Physician. cp 03:35 Kaial Mckeon RN is Primary Nurse. jw7 03:38 Triage completed. ha1 03:40 Patient has correct armband on for positive identification. Bed in low position. Call jw7 light in reach. Side rails up X2. Provided Education on: Use of Call Light. 03:40 Arm band placed on. jw7 03:50 Missed attempt(s): 22 gauge in left antecubital area. Bleeding controlled, band aid jw7 applied, catheter tip intact. 04:00 Missed attempt(s): 22 gauge in left forearm. Bleeding controlled, band aid applied, jw7 catheter tip intact. 04:15 XRAY Chest (1 view) In Process Unspecified. EDMS 04:51 Initial lab(s) drawn, by me, sent to lab. Inserted saline lock: 20 gauge in left jw7 forearm, using aseptic technique. Blood collected. 05:55 No provider procedures requiring assistance completed. IV discontinued, intact, jw7 bleeding controlled, No redness/swelling at site. Pressure dressing applied, Pt Demanded removal of IV. 06:28 Mayur Martinez MD is Referral Physician. [facility] Administered Medications: 04:00 Drug: Aspirin PO Chewable Tablet 324 mg PO once; 81 mg tablets x 4 Route: PO; jw7 05:52 Follow up: Response: No adverse reaction; Marked relief of symptoms jw7 04:51 Drug: DuoNeb Nebulize (2.5 mg - 0.5 mg) 3 ml Nebulizer once Route: Nebulizer; jw7 05:52 Follow up: Response: No adverse reaction; Marked relief of symptoms jw7 05:52 Not Given (Patient Refused): mg IVP once jw7 06:30 Not Given (Patient Refused): potassiumeffervescent tablet 25 meq PO once; dissolve in 4 jw7 ounces of water or juice Medication: 05:56 VIS not applicable for this client. jw7 Outcome: 06:29 Discharge ordered by . akash 06:31 Discharged to home ambulatory, jw7 06:31 Condition: stable 06:31 Discharge instructions given to patient, Instructed on discharge instructions, follow up and referral plans. Demonstrated understanding of instructions, follow-up care, 06:32 Patient left the ED. jw7 Signatures: Dispatcher [employer] EDMS Bg Briones MD MD cha Page, Corey, PA PA cp Calcote, Vanessa RN RN 1 Kaila Mckeon RN RN jwLauren Aviles RN RN ha1 Corrections: (The following items were deleted from the chart) 04:30 03:55 Missed attempt(s): 22 gauge in left forearm. Bleeding controlled, band aid jw7 applied, catheter tip intact. jw7 05:36 05:30 BP 109 / 84; Pulse 98bpm; Resp 12bpm; Spontaneous; Pulse Ox 100% 2 lpm Nasal jw7 Cannula; jw7 05:37 05:30 BP 109 / 84; Pulse 98bpm; Resp 12bpm; Spontaneous; Pulse Ox 100% RA; jw7 jw7
[2024-05-07 06:44] VITALS: BP 105/95; TEMP 98; O2SAT 96
--- NOTE | 2024-05-08 12:44 | RAD REPORT ---
EXAM DESCRIPTION: RAD - Chest Single View - 05/07/2024 4:13 am CLINICAL HISTORY: Male, 53 years old, SOB TECHNIQUE: 1 view COMPARISON: 04/26/2024 FINDINGS: SUPPORT DEVICES: Overlying leads. LUNGS/PLEURA: Basilar linear opacities likely represent scarring/atelectasis. No consolidation, pleur al effusion or pneumothorax. HEART/MEDIASTINUM: Size within normal limits for technique. OTHER: No acute osseous findings. IMPRESSION: No change from the recent comparison exam(s). Electronically signed by: Sriram Galaviz MD 05/07/2024 05:26 AM CDT RP Due to temporary technical issues with the PACS/Fluency reporting system, reports are being signed by the in house radiologist without review as a courtesy to ensure prompt reporting. The interpreting r adiologist is fully responsible for the content of the report.
--- NOTE | 2024-05-09 14:19 | EKG ---
Test Date: 2024-05-07 Test Time: 10:39:41 Insurance Sales Manager: SILVIA MEASUREMENT RESULTS: Intervals: Rate: 96 MI: 136 QRSD: 100 QT: 380 QTc: 480 Miles: P: 65 MI: 136 QRS: 80 T: 77 INTERPRETIVE STATEMENTS: Normal sinus rhythm Incomplete right bundle branch block Prolonged QT Abnormal ECG Compared to ECG 05/05/2024 03:04:35 Incomplete right bundle-branch block now present Prolonged QT interval now present Left posterior fascicular block no longer present Electronically Signed On 05-09-24 14:15:18 CDT by Rosalino Albert
== END 2024-05-07 06:32 | disposition home or self-care (01) ==
LOC: ER 03:18
DX: J44.1 Chronic obstructive pulmonary disease with (acute) exacerbation (principal); Z99.81 Dependence on supplemental oxygen; E87.6 Hypokalemia; F10.20 Alcohol dependence, uncomplicated; D72.829 Elevated white blood cell count, unspecified; I10 Essential (primary) hypertension; F17.210 Nicotine dependence, cigarettes, uncomplicated; Z88.8 Allergy status to other drugs, medicaments and biological substances
CPT/HCPCS: 85025; 80048; 36415; 83735; 85610; 80076; 84484; 83880; 71045; J7613; J7644; 93005; 94640; 99284; J2919

== ENCOUNTER 2024-05-07 10:00 | Emergency (ER) | payer OTHER ==
--- OUTSIDE RECORDS SUMMARY | 2024-05-07 10:08 | XMS REPORT | Continuity of Care Document ---
Author Name Unknown Address [address] [place] [address] [facility] thconnect Address 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 Role Phone ADRIANNA LOPEZ Primary Care Physician Unavailab DARIEN Posey Attending Clinician Unavailable MINNA ORTA Attending Clinician Unavailab WENDY High Attending Clinician Unava SHARATH Mancera Attending Clinician Unavailable PEG CAMP Attending Clinician Unavailable Peg Camp NP Attending Clinician [phone] DEMETRIA DAVENPORT Attending Clinician UnaDemetria Carver MD Attending Clinician + Christina Victoria Attending Clinician [phone] JAC NAVARRO Attending Clinician Unavailable Jac Navarro MD Attending Clinician [phone] TYLER ROWE Attending Clinician Unavailab MELINDA Boothe Attending Clinician Unavailable Melinda Maciel DO Attending Clinician [phone] CHRISTY HOLLIDAY Attending Clinician Unavailable Christy Holliday MD Attending Clinician MARIA ELENA CHAN MEDICAL Attending George akins Unavailable EDNISE SUNG Attending Clinician Unavailable KARLEY ADAMS Attending Clinician Unavailable JAC NAVARRO Admitting Clinician Unavailable MELINDA MACIEL Admitting Clinician Unavailable CHRISTY HOLLIDAY Admitting Clinician Unavailable Payers Payer Name Policy Type Policy Number Effective Date Expirati on Date Source [facility] VINOD LEE COPAY FOCUS 9 [id number] 2024 00:00[id number] 2023 00:00:00 2024 00:00:00 [employer] [id number] 2023 00:00:00 [employer] 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[employer] 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 ON 9 [id number] 2023 00:00:00 Problems Condition Name Condition Details [...] History of tobacco use Smokes tobacco daily [facility] Social function 2024-02-08 00:00:00 2024-02-08 00:00:00 [facility] Alcohol intake 2024-02-08 00:00:00 2024-02-08 00:00:00 4.29 /d [facility] Exposure to SARS-CoV-2 (event) 2022-10-04 00:00:00 2022-10-14 10:25:00 Not sure [facility] Tobacco use and exposure 2018-03-24 00:00:00 2018-03-24 00:00:00 User of smokeless tobacco [facility] Tobacco Comment 2018-03-24 00:00:00 2018-03-24 00:00:00 trying to quit [facility] Sex Ass[birth year] At 1970 00:00:00 1970 00:00:00 [facility] Smoking Status Start Date Stop Date Source Smokes tobacco daily 2018-03-24 00:00:00 [facility] Medications Ordered Medication Name Filled Medication Name Start Date Stop Date Current Medication? Ordering Clinician Indication Dosage Frequency Signature (SIG) Comments Components Source ketorolac (TORADOL) injection 30 mg 02-17 03:15: 00 02-17 15:14 :00 Yes 30mg 30 mg, Slow IV Push, ONCE, 1 dose, On Thu02/17/24 at 2215, Routine [facility] methylpredn isolone sod succ (SOLU-MEDRO L) injection 125 mg 02-17 03:00: 00 02-17 14:59 :00 Yes 125mg 125 mg, Intravenou s, ONCE, 1 dose, On Thu02/17/24 at 2200, 2 mL [facility] ipratropium -albuteroL (DUONEB) 0.5 mg-3 mg(2.5 mg base)/3 mL nebulizer solution 6 mL 02-17 03:00: 00 02-17 14:59 :00 Yes 6mL 6 mL, Inhalation , ONCE NOW, 1 dose, On Thu02/17/24 at 2200, Routine [facility] NaCl 0.9% (NS) bolus infusion 1,000 mL 02-17 03:00: 00 02-17 14:59 :00 Yes 1000mL at 999 mL/hr, 1,000 mL, IV Infusion, ONCE, 1 dose, On Thu02/17/24 at 2200, LAURYN [facility] triamterene -hydrochlor othiazide 37.5-25 mg per capsule 02-16 20:52: 37 02-16 00:00 :00 No 1{capsu le} Take 1 capsule by mouth every morning. [facility] albuterol 5 mg/mL nebulizer solution 02-16 20:51: 42 02-16 00:00 :00 No 2.5mg Inhale 2.5 mg every 6 (six) hours as needed for Wheezing or Shortness of Breath. [facility] ketorolac (TORADOL) injection 15 mg 02-08 03:00: 00 02-08 02:21 :00 No 15mg 15 mg, Slow IV Push, ONCE, 1 dose, On Thu02/08/24 at 2200, Routine [facility] iopamidol (ISOVUE 370-500 mL) injection 100 mL 02-07 22:30: 00 02-07 22:30 :00 Yes [id number] 100mL 100 mL, Intravenou s, ONCE, 1 dose, On Thu02/08/24 at 1730, Routine [facility] ipratropium -albuteroL (DUONEB) 0.5 mg-3 mg(2.5 mg base)/3 mL nebulizer solution 3 mL 02-07 21:15: 00 02-07 20:45 :00 No 3mL 3 mL, Inhalation , ONCE, 1 dose, On Thu02/08/24 at 1615, Routine [facility] morpHINE (2 mg/mL) injection 4 mg 02-07 21:15: 00 02-07 20:27 :00 No 4mg 4 mg, Slow IV Push, ONCE, 1 dose, On Thu02/08/24 at 1615, STAT [facility] ondansetron (ZOFRAN (PF)) injection 4 mg 02-07 21:15: 00 02-07 20:22 :00 No 4mg 4 mg, Slow IV Push, ONCE, 1 dose, On Thu02/08/24 at 1615, [facility] magnesium sulfate in water 2 gram/50 mL (4 %) infusion 2 g 02-07 21:00: 00 02-07 21:30 :00 No 2g 2 g, IV Piggyback, Administer over 60 Minutes, ONCE, 1 dose, On Thu02/08/24 at 1600, [facility] ipratropium -albuteroL (DUONEB) 0.5 mg-3 mg(2.5 mg base)/3 mL nebulizer solution 3 mL 02-07 20:30: 00 02-07 19:31 :00 No 3mL 3 mL, Inhalation , ONCE, 1 dose, On Thu02/08/24 at 1530, Routine [facility] HYDROcodone -acetaminop hen (NORCO) 10-325 mg tablet 1 tablet 01-13 13:15: 00 01-13 12:15 :00 No 1{tbl} 1 tablet, Oral, ONCE, 1 dose, On Thu01/14/24 at 0715, [facility] ipratropium -albuteroL (DUONEB) 0.5 mg-3 mg(2.5 mg base)/3 mL nebulizer solution 3 mL 01-13 13:00: 00 01-13 11:53 :00 No 3mL 3 mL, Inhalation , ONCE NOW, 1 dose, On Thu01/14/24 at 0700, [facility] ondansetron (ZOFRAN (PF)) injection 4 mg 01-13 11:30: 00 01-13 11:37 :00 No 4mg 4 mg, Slow IV Push, ONCE, 1 dose, On Thu01/14/24 at 0530, [facility] morpHINE (4 mg/mL) injection 4 mg 01-13 11:30: 00 01-13 11:37 :00 No 4mg 4 mg, Slow IV Push, ONCE, 1 dose, On Thu01/14/24 at 0530, STAT [facility] azithromyci n (ZITHROMAX Z-PORTER) 250 mg tablet 01-13 00:00: 00 02-16 00:00 :00 No [id number] Take 500 mg on day 1 then 250 mg on days 2-5 [facility] predniSONE 20 mg tablet 01-13 00:00: 00 02-16 00:00 :00 No [id number] Take 1 po tid x 2 days, [...] pain, severe cough [facility] clonazePAM 1 mg tablet 12-26 00:00: 00 02-16 00:00 :00 No 1mg Take 1 tablet by mouth at bedtime as needed for Other (anxiety). [facility] KCL (KLOR-CON M20) tablet 40 mEq 12-23 05:00: 00 12-23 05:07 :00 No 40meq 40 mEq, Oral, ONCE, 1 dose, On Thu12/22/23 at 2300, [facility] NaCl 0.9% (NS) bolus infusion 1,000 mL 12-23 05:00: 00 12-23 05:09 :00 No 1000mL at 999 mL/hr, 1,000 mL, IV Infusion, ONCE, 1 dose, On Thu12/22/23 at 2300, [facility] ondansetron (ZOFRAN (PF)) injection 4 mg 12-23 04:30: 00 12-23 04:24 :00 No 4mg 4 mg, Slow IV Push, ONCE, 1 dose, On Thu12/22/23 at 2230, [facility] maalox:diph enhydrAMINE :lidocaine 2 % [...] 1 dose, On Thu12/22/23 at 2215, LAURYN [facility] HYDROcodone -acetaminop hen [...] 12-22 03:30: 00 12-22 03:30 :00 No [id number] 100mL 100 mL, Intravenou s, ONCE, 1 [...] at 2045, Routine [facility] hydrocortis one 25 mg suppository 12-22 00:00: 00 Yes [id number] 25mg Insert 1 Suppositor y into rectum 2 (two) times daily as needed for Rectal itching/pa in. [facility] ondansetron 4 mg disintegrat ing tablet 12-22 00:00: 00 02-16 00:00 :00 No [id number] 4mg Take 1 tablet by mouth every 8 (eight) hours as needed for Nausea and Vomiting (N/V). [facility] amoxicillin -clavulanat e 875-125 mg per tablet 12-22 00:00: 00 01-02 05:59 :00 No [id number] 1{tbl} Take 1 tablet by mouth every [...] 2021-11 18:30: 00 10-14 18:30 :00 No [id number] 70mL 70 mL, Intravenou s, ONCE, 1 [...] dose, On Thu10/14/22 at 1130, Routine [facility] FENTanyl PF (SUBLIMAZE (PF)) injection 50 mcg 2021-11 16:45: 00 10-14 16:39 :00 No 50ug 50 mcg, Slow IV Push, ONCE, 1 dose, On Thu10/14/22 at 1045, Routine [facility] levoFLOXaci n 750 mg tablet 2021-11 00:00: 00 02-16 00:00 :00 No [id number] 750mg Take 1 tablet by mouth every [...] Slow IV Push, ONCE, 1 dose, On [facility] 02/20/22 at 0645, STAT [facility] ipratropium -albuteroL (DUONEB) 0.5 mg-3 mg(2.5 mg base)/3 mL nebulizer solution 3 mL 02-20 10:30: 00 02-20 09:34 :00 No 3mL 3 mL, Inhalation , ONCE, 1 dose, On Kym 02/20/22 at 0530, Routine [facility] albuterol 90 mcg/actuati on inhaler 02-20 00:00: 00 Yes [id number] 2{puff} Inhale 2 Puffs every 4 (four) hours as needed for Wheezing or Shortness of Breath. [facility] triamterene -hydrochlor othiazid 37.5-25 mg tablet 02-20 00:00: 00 Yes [id number] 1{tbl} Take 1 tablet by mouth daily. [facility] chlordiazeP OXIDE 25 mg capsule 02-20 00:00: 00 Yes [id number] 25mg Take 1 capsule by mouth every 6 (six) hours as needed for Anxiety, Agitation, Heart Rate => 100 or Detox. [facility] predniSONE 10 mg tablet 02-20 00:00: 00 02-16 00:00 :00 No [id number] TAKE ONE TABLET BY MOUTH DAILY [facility] albuterol 2.5 mg /3 mL (0.083 %) nebulizer solution 02-20 00:00: 00 02-16 00:00 :00 No [id number] 2.5mg Inhale 3 mL every 4 (four) hours. May also nebulize one extra every 6 hours. [facility] budesonide- formoteroL 160-4.5 mcg/actuati on inhaler 02-20 00:00: 00 02-16 00:00 :00 No [id number] 2{puff} Inhale 2 Puffs 2 (two) times daily. [facility] albuterol 5 mg/mL [...] SARS-COV-2 COVID-19 PFIZER VACCINE 2021-02-03 00:00:00 Completed [facility] SARS-COV-2 COVID-19 PFIZER VACCINE 2021-02-03 00:00:00 Completed [facility] SARS-COV-2 COVID-19 PFIZER VACCINE 2021-02-03 00:00:00 Completed [facility] SARS-COV-2 COVID-19 PFIZER VACCINE 2021-01-13 00:00:00 Completed [facility] SARS-COV-2 COVID-19 PFIZER VACCINE 2021-01-13 00:00:00 Completed [facility] SARS-COV-2 COVID-19 PFIZER VACCINE 2021-01-13 00:00:00 Completed [facility] Pneumococcal Polysaccharide, PPSV23 (PNEUMOVAX) 2018-03-26 00:00:00 Completed [facility] Influenza Virus Vaccine Quad IM 3+ YRS 2018-03-26 00:00:00 Completed [facility] Pneumococcal Polysaccharide, PPSV23 (PNEUMOVAX) 2018-03-26 00:00:00 Completed [facility] Influenza Virus Vaccine Quad IM 3+ YRS 2018-03-26 00:00:00 Completed [facility] Pneumococcal Polysaccharide, PPSV23 (PNEUMOVAX) 2018-03-26 00:00:00 Completed [facility] Influenza Virus Vaccine Quad IM 3+ YRS 2018-03-26 00:00:00 Completed [facility] Pneumococcal Polysaccharide, PPSV23 (PNEUMOVAX) Unknown Completed [facility] Influenza Virus Vaccine Quad IM 3+ YRS Unknown Completed [facility] SARS-COV-2 COVID-19 PFIZER VACCINE Unknown Completed [facility] SARS-COV-2 COVID-19 PFIZER VACCINE Unknown Completed [facility] Pneumococcal Polysaccharide, PPSV23 (PNEUMOVAX) Unknown Completed [facility] Influenza Virus Vaccine Quad IM 3+ YRS Unknown Completed [facility] SARS-COV-2 COVID-19 PFIZER VACCINE Unknown Completed [facility] SARS-COV-2 COVID-19 PFIZER VACCINE Unknown Completed [facility] Pneumococcal Polysaccharide, PPSV23 (PNEUMOVAX) [facility] Influ[facility] Vaccine Quad IM 3+ YRS Unknown Completed [facility] SARS-COV-2 COVID-19 PFIZER VACCINE Unknown Completed [facility] SARS-COV-2 COVID-19 PFIZER VACCINE Unknown Completed [facility] Pneumococcal Polysaccharide, PPSV23 (PNEUMOVAX) Unknown Completed [facility] Influenza Virus Vaccine Quad IM 3+ YRS Unknown Completed [facility] SARS-COV-2 COVID-19 PFIZER VACCINE Unknown Completed [facility] SARS-COV-2 COVID-19 PFIZER VACCINE Unknown Completed [facility] Pneumococcal Polysaccharide, PPSV23 (PNEUMOVAX) Unknown Completed [facility] Influenza Virus Vaccine Quad IM 3+ YRS Unknown Completed [facility] SARS-COV-2 COVID-19 PFIZER VACCINE Unknown Completed [facility] SARS-COV-2 COVID-19 PFIZER VACCINE Unknown Completed [facility] Pneumococcal Polysaccharide, PPSV23 (PNEUMOVAX) Unknown Completed [facility] Influenza Virus Vaccine Quad IM 3+ YRS Unknown Completed [facility] SARS-COV-2 COVID-19 PFIZER VACCINE Unknown Completed [facility] SARS-COV-2 COVID-19 PFIZER VACCINE Unknown Completed [facility] Pneumococcal Polysaccharide, PPSV23 (PNEUMOVAX) Unknown Completed [facility] Influenza Virus Vaccine Quad IM 3+ YRS Unknown Completed [facility] SARS-COV-2 COVID-19 PFIZER VACCINE Unknown Completed [facility] SARS-COV-2 COVID-19 PFIZER VACCINE Unknown Completed [facility] Pneumococcal Polysaccharide, PPSV23 (PNEUMOVAX) Unknown Completed [facility] Influenza Virus Vaccine Quad IM 3+ YRS Unknown Completed [facility] SARS-COV-2 COVID-19 PFIZER VACCINE Unknown Completed [facility] SARS-COV-2 COVID-19 PFIZER VACCINE Unknown Completed [facility] Vital Signs Vital Name Observation Time Observation Value Comments S ource Systolic blood pressure 2024-02-18 01:57:00 134 mm[Hg] [facility] Diastolic blood pressure 2024-02-18 01:57:00 94 mm[Hg] [facility] Body height 2024-02-18 01:57:00 162.6 cm [facility] Body weight 2024-02-18 01:57:00 79.379 kg [facility] BMI 2024-02-18 01:57:00 30.04 kg/m2 [facility] Heart rate 2024-02-18 01:53:00 110 /min [facility] Body temperature 2024-02-18 01:53:00 36.61 Debbie [facility] Respiratory rate 2024-02-18 01:53:00 24 /min [facility] Oxygen saturation in Arterial blood by Pulse oximetry 2024-02-18 01:53:00 93 /min [facility] Systolic blood pressure 2024-02-09 01:54:05 150 mm[Hg] [facility] Diastolic blood pressure 2024-02-09 01:54:05 91 mm[Hg] [facility] Heart rate 2024-02-09 01:54:05 87 /min [facility] Respiratory rate 2024-02-09 01:54:05 17 /min [facility] Oxygen saturation in Arterial blood by Pulse oximetry 2024-02-09 01:54:05 93 /min [facility] Body temperature 2024-02-09 01:45:00 36.67 Debbie [facility] Body height 2024-02-09 01:45:00 162.6 cm [facility] Body weight 2024-02-09 01:45:00 81.194 kg [facility] BMI 2024-02-09 01:45:00 30.73 kg/m2 [facility] Respiratory rate 2024-02-08 21:00:00 18 /min [facility] Oxygen saturation in Arterial blood by Pulse oximetry 2024-02-08 21:00:00 96 /min [facility] Systolic blood pressure 2024-02-08 20:27:00 164 mm[Hg] [facility] Diastolic blood pressure 2024-02-08 20:27:00 90 mm[Hg] [facility] Heart rate 2024-02-08 20:27:00 83 /min [facility] Body temperature 2024-02-08 19:12:00 36.83 Debbie [facility] Body height 2024-02-08 19:12:00 162.6 cm [facility] Body weight 2024-02-08 19:12:00 81.194 kg [facility] BMI 2024-02-08 19:12:00 30.73 kg/m2 [facility] Heart rate 2024-01-14 12:15:00 98 /min [facility] Body temperature 2024-01-14 12:15:00 36.56 Debbie [facility] Respiratory rate 2024-01-14 12:15:00 14 /min [facility] Oxygen saturation in Arterial blood by Pulse oximetry 2024-01-14 12:15:00 95 /min [facility] Systolic blood pressure 2024-01-14 12:00:00 140 mm[Hg] [facility] Diastolic blood pressure 2024-01-14 12:00:00 90 mm[Hg] [facility] Body height 2024-01-14 10:51:00 162.6 cm [facility] Body weight 2024-01-14 10:51:00 81.194 kg [facility] BMI 2024-01-14 10:51:00 30.73 kg/m2 [facility] Systolic blood pressure 2023-12-23 05:02:00 133 mm[Hg] [facility] Diastolic blood pressure 2023-12-23 05:02:00 84 mm[Hg] [facility] Heart rate 2023-12-23 05:02:00 78 /min [facility] Body temperature 2023-12-23 05:02:00 36.17 Debbie [facility] Respiratory rate 2023-12-23 05:02:00 17 /min [facility] Oxygen saturation in Arterial blood by Pulse oximetry 2023-12-23 05:02:00 91 /min [facility] Body height 2023-12-23 03:45:00 162.6 cm [facility] Body weight 2023-12-23 03:45:00 81.194 kg [facility] BMI 2023-12-23 03:45:00 30.73 kg/m2 [facility] Systolic blood pressure 2023-12-22 02:08:00 143 mm[Hg] [facility] Diastolic blood pressure 2023-12-22 02:08:00 92 mm[Hg] [facility] Heart rate 2023-12-22 02:08:00 81 /min [facility] Respiratory rate 2023-12-22 02:08:00 13 /min [facility] Oxygen saturation in Arterial blood by Pulse oximetry 2023-12-22 02:08:00 95 /min [facility] Body temperature 2023-12-22 01:33:00 36.72 Debbie [facility] Body height 2023-12-22 01:33:00 162.6 cm [facility] Body weight 2023-12-22 01:33:00 81.239 kg [facility] BMI 2023-12-22 01:33:00 30.74 kg/m2 [facility] Systolic blood pressure 2023-11-11 02:00:00 127 mm[Hg] [facility] Diastolic blood pressure 2023-11-11 02:00:00 87 mm[Hg] [facility] Heart rate 2023-11-11 02:00:00 79 /min [facility] Respiratory rate 2023-11-11 02:00:00 20 /min [facility] Oxygen saturation in Arterial blood by Pulse oximetry 2023-11-11 02:00:00 98 /min [facility] Body temperature 2023-11-11 01:31:00 36.28 Debbie [facility] Body height 2023-11-11 01:31:00 162.6 cm [facility] Body weight 2023-11-11 01:31:00 79.379 kg [facility] BMI 2023-11-11 01:31:00 30.04 kg/m2 [facility] Systolic blood pressure 2023-10-27 06:54:00 133 mm[Hg] [facility] Diastolic blood pressure 2023-10-27 06:54:00 94 mm[Hg] [facility] Heart rate 2023-10-27 06:54:00 95 /min [facility] Body temperature 2023-10-27 06:54:00 36.44 Debbie [facility] Respiratory rate 2023-10-27 06:54:00 22 /min [facility] Body height 2023-10-27 06:54:00 162.6 cm [facility] Body weight 2023-10-27 06:54:00 78.472 kg [facility] BMI 2023-10-27 06:54:00 29.70 kg/m2 [facility] Oxygen saturation in Arterial blood by Pulse oximetry 2023-10-27 06:54:00 94 /min [facility] Systolic blood pressure 2022-10-14 19:43:00 111 mm[Hg] [facility] Diastolic blood pressure 2022-10-14 19:43:00 74 mm[Hg] [facility] Heart rate 2022-10-14 19:43:00 98 /min [facility] Body temperature 2022-10-14 19:43:00 36.39 Debbie [facility] Respiratory rate 2022-10-14 19:43:00 22 /min [facility] Oxygen saturation in Arterial blood by Pulse oximetry 2022-10-14 19:43:00 94 /min [facility] Body height 2022-10-14 16:13:00 162.6 cm [facility] Body weight 2022-10-14 16:13:00 81.647 kg [facility] BMI 2022-10-14 16:13:00 30.90 kg/m2 [facility] Systolic blood pressure 2022-03-12 10:13:00 119 mm[Hg] [facility] Diastolic blood pressure 2022-03-12 10:13:00 75 mm[Hg] [facility] Heart rate 2022-03-12 10:13:00 105 /min [facility] Body temperature 2022-03-12 10:13:00 37.28 Debbie [facility] Respiratory rate 2022-03-12 10:13:00 19 /min [facility] Body height 2022-03-12 10:13:00 162.6 cm [facility] Body weight 2022-03-12 10:13:00 99.791 kg [facility] BMI 2022-03-12 10:13:00 37.76 kg/m2 [facility] Oxygen saturation in Arterial blood by Pulse oximetry 2022-03-12 10:13:00 96 /min [facility] Systolic blood pressure 2022-02-20 11:57:00 155 mm[Hg] [facility] Diastolic blood pressure 2022-02-20 11:57:00 88 mm[Hg] [facility] Heart rate 2022-02-20 11:57:00 105 /min [facility] Respiratory rate 2022-02-20 11:57:00 18 /min [facility] Oxygen saturation in Arterial blood by Pulse oximetry 2022-02-20 11:57:00 100 /min [facility] Body temperature 2022-02-20 09:25:00 37 Debbie [facility] Body height 2022-02-20 09:25:00 162.6 cm [facility] Body weight 2022-02-20 09:25:00 96.163 kg [facility] BMI 2022-02-20 09:25:00 36.39 kg/m2 [facility] Procedures Procedure Date / Time Performed Performing Clinician Source AC PANEL 20 + LACTIC ACID 2024-02-08 20:47:00 Christina Villarreal [facility] XR CHEST 1 VW 2024-02-08 19:47:00 Christina Villarreal [facility] URINALYSIS 2024-02-08 19:36:00 [facility] MAGNESIUM 2024-02-08 19:25:00 [facility] TROPONIN I 2024-02-08 19:25:00 Christina Villarreal [facility] COMP. METABOLIC PANEL ([id number]) 2024-02-08 19:25:00 Christina Villarreal [facility] ETHANOL 2024-02-08 19:25:00 [facility] CBC WITH DIFF 2024-02-08 19:25:00 Christina Villarreal [facility] N-TERMINAL PRO-BNP 2024-02-08 19:25:00 Christina Villarreal [facility] EKG-12 LEAD 2024-01-14 12[facility]00[facility]24-[facility]-14 11:11:00 Jac Navarro [facility] TROPONIN I 2024-01-14 11:11:00 Jac Navarro [facility] COMP. METABOLIC PANEL ([id number]) 2024-01-14 11:11:00 Jac Navarro [facility] ETHANOL 2024-01-14 11:11:00 Jac Navarro [facility] CBC WITH DIFF 2024-01-14 11:11:00 Jac Navarro [facility] N-TERMINAL PRO-BNP 2024-01-14 11:11:00 Jac Navarro [facility] COVID-19 (ID NOW RAPID TESTING) 2024-01-14 11:11:00 Jac Navarro [facility] CONSENT/REFUSAL FOR DIAGNOSIS AND TREATMENT 2024-01-14 10:44:32 Doctor Unassigned, Domino [facility] LIPASE 2023-12-23 04:17:00 Tyler Rowe [facility] COMP. METABOLIC PANEL ([id number]) 2023-12-23 04:17:00 Tyler Rowe [facility] CBC WITH DIFF 2023-12-23 04:17:00 Tyler Rowe [facility] URINALYSIS 2023-12-23 04:17:00 Tyler Rowe Un [facility] CONSENT/REFUSAL FOR DIAGNOSIS AND TREATMENT 2023-12-23 03:40:32 Doctor Unassigned, Domino [facility] CT ABDOMEN PELVIS W CONTRAST 2023-12-22 02:31:05 Melinda Maciel [facility] LIPASE 2023-12-22 01:58:00 Melinda Maciel [facility] COMP. METABOLIC PANEL ([id number]) 2023-12-22 01:58:00 Melinda Maciel [facility] ETHANOL 2023-12-22 01:58:00 Melinda Maciel [facility] CBC WITH DIFF 2023-12-22 01:58:00 Melinda Maciel [facility] PROTHROMBIN TIME / INR 2023-12-22 01:58[facility]23-12-22 01:58:00 Melinda Maciel [facility] CONSENT/REFUSAL FOR DIAGNOSIS AND TREATMENT 2023-12-22 01:19:14 Doctor Unassigned, Domino [facility] NOTICE OF PRIVACY PRACTICES 2023-11-11 01:24:24 Doctor Unassigned, Domino [facility] CONSENT/REFUSAL FOR DIAGNOSIS AND TREATMENT 2023-11-11 01:23:54 Doctor Unassigned, Domino [facility] COVID-19 (ID NOW RAPID TESTING) 2023-10-27 07:09:00 Jac Navarro [facility] NOTICE OF PRIVACY PRACTICES 2023-10-27 06:49:48 Doctor Unassigned, Domino [facility] CONSENT/REFUSAL FOR DIAGNOSIS AND TREATMENT 2023-10-27 06:47:40 Doctor Unassigned, Domino [facility] CT ABDOMEN PELVIS W CONTRAST 2022-10-14 17:33:00 Melinda Maciel [facility] XR CHEST 1 VW 2022-10-14 17:10:37 Singer [facility] TROPONIN I 2022-10-14 16:37:00 Melinda Maciel [facility] COMP. METABOLIC PANEL ([id number]) 2022-10-14 16:37:00 Melinda Maciel [facility] CBC WITH DIFF 2022-10-14 16:37:00 Melinda Maciel [facility] PROTHROMBIN TIME / INR 2022-10-14 16:37:00 Wali Maciel [facility] URINALYSIS 2022-10-14 16:37:00 Melinda Maciel [facility] N-TERMINAL PRO-BNP 2022-10-14 16:37:00 Singer [facility] CONSENT/REFUSAL FOR DIAGNOSIS AND TREATMENT 2022-10-14 15:56:36 Doctor Unassigned, Domino [facility] CONSENT/REFUSAL FOR DIAGNOSIS AND TREATMENT 2022-03-12 10:03:12 Doctor Unassigned, Domino [facility] XR CHEST 1 VW 2022-02-20 09:59:00 Christy Holliday [facility] LIPASE 2022-02-20 09:30:00 Christy Holliday [facility] TROPONIN I 2022-02-20 09:30:00 Christy Holliday [facility] COMP. METABOLIC PANEL ([id number]) 2022-02-20 09:30:00 Christy Holliday [facility] CBC WITH DIFF 2022-02-20 09:30:00 Christy Holliday [facility] N-TERMINAL PRO-BNP 2022-02-20 09:30:00 Christy Holliday [facility] NOTICE OF PRIVACY PRACTICES 2022-02-20 09:15:02 Doctor Unassigned, Domino [facility] CONSENT/REFUSAL FOR DIAGNOSIS AND TREATMENT 2022-02-20 09:14:47 Doctor Unassigned, Domino [facility] Encounters Start Date/Time End Date/Time Encounter Type Admission Type Attending [facility] Care Facility Care Department Encounter ID Source 2024-04-14 16:30:00 2024-04-14 16:30:00 Outpatient DARIEN LOBO [id number] Maria Elena [facility] 2024-04-12 11:00:00 2024-04-12 11:00:00 Outpatient MINNA ORTA [id number] Maria Elena [facility] 2024-04-12 11:00:00 2024-04-12 11:00:00 Outpatient WENDY BROWNLEE [id number] Maria Elena [facility] 2024-04-12 00:00:00 2024-04-12 00:00:00 Outpatient [facility]ALE[facility] [id number] [facility]24-04-05 11:30:00 2024-04-05 11:30:00 Outpatient DARIEN LOBO [id number] [facility] 2024-04-05 00:00:00 2024-04-05 00:00:00 Outpatient DARIEN LOBO MARIA ELENA [id number] Maria Elena [facility] 2024-03-28 00:00:00 2024-03-28 00:00:00 Outpatient DARIEN LOBO MARIA ELENA [id number] Maria Elena [facility] 2024-03-15 08:30:00 2024-03-15 08:30:00 Outpatient KEMWENDY MARIA ELENA BECERRA [id number] [facility] 2024-02-17 20:58:00 2024-02-17 21:44:00 Emergency X PEG CAMP [facility] ERT [id number] [facility] 2024-02-17 20:58:00 2024-02-17 21:44:00 Emergency Peg Camp [facility] 1.2.840.114 350.1.13.10 4.2.7.2.686 [id number] [id number] [facility] 2024-02-08 20:38:00 2024-02-08 21:40:00 Emergency X DEMETRIA DAVENPORT [facility] ERT [id number] [facility] 2024-02-08 20:38:00 2024-02-08 21:40:00 Emergency Demetria Davenport [facility] 1.2.840.114 350.1.13.10 4.2.7.2.686 [id number] [id number] [facility] 2024-02-08 14:08:00 2024-02-08 17:06:00 Emergency Christina Villarreal [facility] 1.2.840.114 350.1.13.10 4.2.7.2.686 [id number] [id number] [facility] 2024-01-14 04:46:00 2024-01-14 06:23:00 Emergency X TERESSA JAC [facility] ERT [id number] [facility] 2024-01-14 04:46:00 2024-01-14 06:23:00 Emergency Jac Navarro [facility] 1.2.840.114 350.1.13.10 4.2.7.2.686 [id number] [id number] [facility] 2023-12-22 21:51:00 2023-12-22 23:13:00 Emergency X TYLER ROWE [facility] ERT [id number] [facility] 2023-12-22 21:51:00 2023-12-22 23:13:00 Emergency AdeNi bocanegrablade [facility] 1.2.840.114 350.1.13.10 4.2.7.2.686 [id number] 084 [id number] [facility] 2023-12-21 19:36:00 2023-12-21 21:52:00 Emergency X MELINDA MACIEL [facility] ERT [id number] [facility] 2023-12-21 19:36:00 2023-12-21 21:52:00 Emergency Melinda Maciel [facility] 1.2.840.114 350.1.13.10 4.2.7.2.686 [id number] 084 [id number] [facility] 2023-11-10 19:29:00 2023-11-10 20:14:00 Emergency X CHRISTY HOLLIDAY [facility] ERT [id number] [facility] 2023-11-10 19:29:00 2023-11-10 20:14:00 Emergency Christy Holliday [facility] 1.2.840.114 350.1.13.10 4.2.7.2.686 [id number] 084 [id number] [facility] 2023-10-27 00:49:00 2023-10-27 01:41:00 Emergency X JAC NAVARRO [facility] ERT [id number] [facility] 2023-10-27 00:49:00 2023-10-27 01:41:00 Emergency Jac Navarro [facility] 1.2.840.114 350.1.13.10 4.2.7.2.686 [id number] 084 [id number] [facility] 2023-07-15 00:00:00 2023-07-15 00:00:00 Outpatient PRELEE DARIEN MARIA ELENA BECERRA [id number] [facility] 2023-06-16 11:30:00 2023-06-16 11:30:00 Outpatient PRELEE, DARIEN BECERRA [id number] [facility] 2023-05-18 00:00:00 2023-05-18 00:00:00 Outpatient GROUPMARIA ELENA [id number] [facility] 2022-10-14 10:07:00 2022-10-14 14:39:00 Emergency X MELINDA MACIEL [facility] ERT [id number] [facility] 2022-10-14 10:07:00 2022-10-14 14:39:00 Emergency Melinda Maciel [facility] 1.2.840.114 350.1.13.10 4.2.7.2.686 [id number] [id number] [facility] 2022-03-12 05:15:00 2022-03-12 06:41:00 Emergency X DEEPACHRISTY LOPEZ [facility] ERT [id number] [facility] 2022-03-12 05:15:00 2022-03-12 06:41:00 Emergency Deepamorena Manueltera Olson [facility] 1.2.840.114 350.1.13.10 4.2.7.2.686 [id number] [id number] [facility] 2022-02-20 04:17:00 2022-02-20 07:16:00 Emergency X DEEPAMIOJORGE LCHRISTY [facility] ERT [id number] [facility] 2022-02-20 04:17:2022-02-20 07:16:00 Emergency Christy Holliday [facility] 1.2.840.114 350.1.13.10 4.2.7.2.686 [id number] 084 [id number] [facility] 2021-02-03 11:10:00 2021-02-03 11:10:00 Outpatient R DENISE SUNG [facility] [id number] [facility] 2021-01-13 11:20:00 2021-01-13 11:20:00 Outpatient [facility] [id number] [facility] 2020-11-10 08:20:00 2020-11-10 08:20:00 Outpatient KARLEY ESTRADA [facility] [id number] [facility] Results Test Description Test Time Test Comments Results Result Co mments Source [facility] + Lactic [id number] 20:52:47* Test Item Value Reference Range Interpretation Comme nts PH (test code = 2) 7.39 7.35-7.45 PCO2 (test code = 4181684196) 42 35-45 PO2 (test code = 6291600640) 76 80-100 L HCO3 (test code = 7895991577) 25 22-26 BE (test code = 0008435880) -0.1 -3.0-3.0 THB (test code = 9249686780) 14.3 g/dL 13.5-18.0 %O2HB (test code = 4928945902) 85.8 % 94.0-99.0 L %COHB ART (test code = 8583963710) 9.0 % 0.0-1.5 H %METHB ART (test code = 6281821041) 0.3 % 0.4-1.5 L VOL%O2 ART (test code = 6320178801) 17.3 % 15.0-23.0 NA (test code = 9621169988) 140 mmol/L 135-145 K+ (test code = 1460167517) 4.1 mmol/L 3.5-5.0 AC CA IONZ (test code = 8011637388) 4.50 mg/dL 4.50-5.30 GLUCOSE (test code = 8241111896) 105 mg/dL 70-110 LACTIC ACID (test code = 7695722736) 2.60 mmol/L 0.50-2.20 H Lab Interpretation (test cod e = 55508-3) [facility]normal [facility] [id number] 20:34:14* Test Item Value Reference Range Interpretation Comme nts TROPONIN I (test code = 3060734529) 0.008 ng/mL <=0.034 LOUISE (test code = [...] of biotin. Lab Interpretation (test code = 78334-7) Normal [facility] Dvc-[id number] 20:31:35* Test Item Value Reference Range Interpretation Comme nts NT-proBNP (test code = 35780-1) 188 pg/mL <=125 LOUISE (test code = LOUISE) Result Indeterminate-Consid er causes of NT-proBNP elevation other than Heart failure such as acute coronary syndrome, pulmonary embolism, pulmonary hypertension, sepsis, stroke, and renal dysfunction. Lab Interpretation (test code = 89794-3) [facility]normal [facility] Met[facility] Panel (45524)2024-02-08 20:21:10* Test Item Value Reference Range Interpretation Comme nts NA (test code = 6286303893) 135 mmol/L 135-145 K (test code = 5937060752) 4.5 mmol/L 3.5-5.0 CL (test code = 5550683657) 100 mmol/L 98-108 CO2 TOTAL (test code = 3971133761) 22 mmol/L 23-31 L AGAP (test code = 4379602619) 13 2-16 BUN (test code = 4493929106) 8 mg/dL 7-23 GLUCOSE (test code = 9524764142) 97 mg/dL 70-110 CREATININE (test code = 2160-0) 0.65 mg/dL 0.60-1.25 TOTAL BILI (test code = 4196405949) 0.4 mg/dL 0.1-1.1 CALCIUM (test code = 3590781000) 9.4 mg/dL 8.6-10.6 T PROTEIN (test code = 2803875279) 8.2 g/dL 6.3-8.2 ALBUMIN (test code = 3657973523) 4.7 g/dL 3.5-5.0 ALK PHOS (test code = 7961569263) 76 U/L 34-122 ALTv (test code = 1742-6) 33 U/L 5-50 AST(SGOT) (test code = 5678521645) 54 U/L 13-40 H eGFR (test code = 49392-9) 111.3 mL/min/1.73m2 CKD-EPI eGFR (2020). Assuming creatinine has been stable day-to-day for at least three months, the eGFR indicates Category G1 (>= 90 mL/min/1.73 m2) Lab Interpretation (test code = 46061-3) Abnormal [facility] HospitalMagnesium2024-04-01 20:21:10* Test Item Value Reference Range Interpretation Comme nts MAGNESIUM (test code = 6633651657) 2.1 mg/dL 1.7-2.4 Lab Interpretation (test cod e = 17676-4) [facility] 1 [id number] 20:07:21EXAM: XR CHEST 1 VW COMPARISON: 01/14/2024 HISTORY: sob FINDINGS: Lungs: Slightly hyperexpanded lungswith subtle progression of interstitialprominence. Trace pleural effusions could be present. Heart/Mediastinum: Stable cardiomegaly. Bones and soft tissues: No osseous abnormality is visualized.[facility] Cbc with [id number] 20:04:26* Test Item Value Reference Range Interpretation [...] 33.8 g/dL 31.2-35.0 RDW-SD (test code = 95545-7) 50.5 fL 38.5-51.6 RDW-CV (test code = 788-0) 14.3 % 12.1-15.4 PLT (test code = 777-3) 206 150-328 MPV (test code = 17276-0) 9.1 fL 9.8-13.0 L NRBC/100 WBC (test code = 1638843024) 0.0 0.0-10.0 NRBC x10^3 (test code = 4035004455) See_Comment [Automated messa ge] The system which generated this result transmitted reference range: 10*3/?L. The reference range was not used to interpret this result as normal/abnormal. GRAN MAT (NEUT) % (test code = 770-8) 81.0 % IMM GRAN % (test code = 0095765516) 1.20 % LYMPH % (test code = 736-9) 10.9 % MONO % (test code = 5905-5) 6.8 % EOS % (test code = 713-8) 0.0 % BASO % (test code = 706-2) 0.1 % GRAN MAT x10^3(ANC) (test code = 2090437233) 9.31 10*3/uL 1.99-6.95 H IMM GRAN x10^3 (test code = 4457930028) 0.14 10*3/uL 0.00-0.06 H LYMPH x10^3 (test code = 731-0) 1.25 10*3/uL 1.09-3.23 MONO x10^3 (test code = 742-7) 0.78 10*3/uL 0.36-1.02 EOS x10^3 (test code = 711-2) 0.06-0.53 L BASO x10^3 (test code = 704-7) 0.01-0.09 Lab Interpretation (test code = 00475-0) [facility] MET[facility]OLIC PANEL (84680)2023-12-23 04:53:26* Test Item Value Reference Range Interpretation Comme nts NA (test code = 5653799289) 135 mmol/L 135-145 K (test code = 6900644036) 3.2 mmol/L 3.5-5.0 L CL (test code = 3928427435) 104 mmol/L 98-108 CO2 TOTAL (test code = 5203026588) 23 mmol/L 23-31 AGAP (test code = 4157226149) 8 2-16 BUN (test code = 9060522268) 11 mg/dL 7-23 GLUCOSE (test code = 1349569624) 82 mg/dL 70-110 CREATININE (test code = 2160-0) 0.64 mg/dL 0.60-1.25 TOTAL BILI (test code = 4670502610) 0.5 mg/dL 0.1-1.1 CALCIUM (test code = 3212096565) 8.8 mg/dL 8.6-10.6 T PROTEIN (test code = 1503566151) 6.7 g/dL 6.3-8.2 ALBUMIN (test code = 3168368358) 4.1 g/dL 3.5-5.0 ALK PHOS (test code = 9306784994) 46 U/L 34-122 ALTv (test code = 1742-6) 21 U/L 5-50 AST(SGOT) (test code = 2926047839) 43 U/L 13-40 H eGFR (test code = 11107-7) 111.8 mL/min/1.73m2 CKD-EPI eGFR (2020). Assuming creatinine has been stable day-to-day for at least three months, the eGFR indicates Category G1 (>= 90 mL/min/1.73 m2) Lab Interpretation (test code = 21299-5) [facility]normal [facility]2024-02-14 04:53:26* Test Item Value Reference Range Interpretation Comme nts LIPASE (test code = 8999055585) 105 U/L 0-220 Lab Interpretation (test cod e = 22844-5) Normal [facility] WITH [id number] 04:34:24* Test Item Value Reference Range Interpretation [...] 33.0 g/dL 31.2-35.0 RDW-SD (test code = 35132-2) 50.9 fL 38.5-51.6 RDW-CV (test code = 788-0) 13.7 % 12.1-15.4 PLT (test code = 777-3) 232 150-328 MPV (test code = 12996-5) 8.7 fL 9.8-13.0 L NRBC/100 WBC (test code = 6548156122) 0.0 0.0-10.0 NRBC x10^3 (test code = 9696154266) See_Comment [Automated messa ge] The system which generated this result transmitted reference range: 10*3/?L. The reference range was not used to interpret this result as normal/abnormal. GRAN MAT (NEUT) % (test code = 770-8) 58.8 % IMM GRAN % (test code = 5477510139) 0.90 % LYMPH % (test code = 736-9) 27.8 % MONO % (test code = 5905-5) 10.5 % EOS % (test code = 713-8) 1.3 % BASO % (test code = 706-2) 0.7 % GRAN MAT x10^3(ANC) (test code = 3739236102) 5.68 10*3/uL 1.99-6.95 IMM GRAN x10^3 (test code = 9572031123) 0.09 10*3/uL 0.00-0.06 H LYMPH x10^3 (test code = 731-0) 2.69 10*3/uL 1.09-3.23 MONO x10^3 (test code = 742-7) 1.02 10*3/uL 0.36-1.02 EOS x10^3 (test code = 711-2) 0.13 10*3/uL 0.06-0.53 BASO x10^3 (test code = 704-7) 0.07 10*3/uL 0.01-0.09 Lab Interpretation (test code = 53482-4) [facility] W [id number] 03:32:43Exam: CT Abdomen and Pelvis With Contrast, 12/21/2023 7:45 PM. Ordering Physician: MELINAD MACIEL. History: Diverticulitis, complication suspected . Comparison: [...] acute osseous abnormality.Soft tissues: Small fat-containing inguinal hernias.[facility] HospitalEthanol2024-02-13 02:32:24* Test Item Value Reference Range Interpretation Comme nts ALCOHOL (test code = 2870592906) 117 mg/dL LOUISE (test code = LOUISE) <10 Xlxbsijq96-655 Toxic>100 Depression of ACAD[employer] SERVICES COORDINATOR>400 Fatalities Reported [facility] Metabolic Panel (28398)2023-12-22 02:31:43* Test Item Value Reference Range Interpretation Comme nts NA (test code = 0147694900) 133 mmol/L 135-145 L K (test code = 6658563174) 3.3 mmol/L 3.5-5.0 L CL (test code = 0339508428) 102 mmol/L 98-108 CO2 TOTAL (test code = 6880319813) 25 mmol/L 23-31 AGAP (test code = 0937516577) 6 2-16 BUN (test code = 1511611792) 11 mg/dL 7-23 GLUCOSE (test code = 6673947773) 75 mg/dL 70-110 CREATININE (test code = 0733235437) 0.51 mg/dL 0.60-1.25 L TOTAL BILI (test code = 2165554235) 0.5 mg/dL 0.1-1.1 CALCIUM (test code = 0591232698) 8.9 mg/dL 8.6-10.6 T PROTEIN (test code = 3395274319) 7.2 g/dL 6.3-8.2 ALBUMIN (test code = 2003414313) 4.5 g/dL 3.5-5.0 ALK PHOS (test code = 9617703638) 46 U/L 34-122 ALTv (test code = 1742-6) 15 U/L 5-50 AST(SGOT) (test code = 2948322341) 24 U/L 13-40 eGFR (test code = 72419-4) 119.7 mL/min/1.73m2 CKD-EPI eGFR (2020). Assuming creatinine has been stable day-to-day for at least three months, the eGFR indicates Category G1 (>= 90 mL/min/1.73 m2) Lab Interpretation (test code = 75954-3) Abnormal [facility] HospitalLipase2024-02-13 02:31:43* Test Item Value Reference Range Interpretation Comme nts LIPASE (test code = 0425876806) 121 U/L 0-220 Lab Interpretation (test cod e = 67506-3) Normal [facility] HospitalProthrombin Time / [id number] 02:21:02* Test Item Value Reference Range Interpretation Comme [facility] PROTIME PATIENT (test code = 5964-2) 10.5 10.1-12.6 INR (test code = 6301-6) 0.9 Normal INR <1.1; Warfarin Therapeutic range 2.0 to 3.0 or 2.5 to 3.5, depending upon the indications. Lab Interpretation (test code = 69014-0) Normal [facility] with [id number] 02:14:04* Test Item Value Reference Range Interpretation [...] 34.0 g/dL 31.2-35.0 RDW-SD (test code = 47798-5) 49.1 fL 38.5-51.6 RDW-CV (test code = 788-0) 13.5 % 12.1-15.4 PLT (test code = 777-3) 260 150-328 MPV (test code = 44854-7) 8.7 fL 9.8-13.0 L NRBC/100 WBC (test code = 5111776742) 0.0 0.0-10.0 NRBC x10^3 (test code = 6393173281) See_Comment [Automated messa ge] The system which generated this result transmitted reference range: 10*3/?L. The reference range was not used to interpret this result as normal/abnormal. GRAN MAT (NEUT) % (test code = 770-8) 64.3 % IMM GRAN % (test code = 5818408676) 0.90 % LYMPH % (test code = 736-9) 24.2 % MONO % (test code = 5905-5) 9.1 % EOS % (test code = 713-8) 0.7 % BASO % (test code = 706-2) 0.8 % GRAN MAT x10^3(ANC) (test code = 2107761714) 8.73 10*3/uL 1.99-6.95 H IMM GRAN x10^3 (test code = 0955565025) 0.12 10*3/uL 0.00-0.06 H LYMPH x10^3 (test code = 731-0) 3.28 10*3/uL 1.09-3.23 H MONO x10^3 (test code = 742-7) 1.23 10*3/uL 0.36-1.02 H EOS x10^3 (test code = 711-2) 0.10 10*3/uL 0.06-0.53 BASO x10^3 (test code = 704-7) 0.11 10*3/uL 0.01-0.09 H Lab Interpretation (test code = 20583-8) Abnormal [facility] HospitalTROPONIN [id number] 10:16:22* Test Item Value Reference Range Interpretation Comments TROPONIN I (test code = 2580918087) 0.007 ng/mL See_Comment [Automated message] The system [...] of biotin. Lab Interpretation (test code = 89396-5) Normal [facility] HospitalN-TERMINAL [id number] 10:13:01* Test Item Value Reference Range Interpretation Comme nts NT-proBNP (test code = 3449472074) 52 pg/mL See_Comment [Automated message] The system which generated this result transmitted reference range: <=125. The reference range was not used to interpret this result as normal/abnormal. LOUISE (test code = LOUISE) Biotin has been reported to cause a negative bias, interpret results relative to patient's use of biotin. Lab Interpretation (test code = 31209-9) Normal [facility]. METABOLIC PANEL (71303)2022-02-20 10:04:02* Test Item Value Reference Range Interpretation Comme nts NA (test code = 6783534226) 137 mmol/L 135-145 K (test code = 5972191791) 3.6 mmol/L 3.5-5.0 CL (test code = 2834616928) 99 mmol/L 98-108 CO2 TOTAL (test code = 0633886518) 25 mmol/L 23-31 AGAP (test code = 0370114121) 2-16 BUN (test code = 9880746970) 6 mg/dL 7-23 L GLUCOSE (test code = 6040551580) 88 mg/dL 70-110 CREATININE (test code = 6297303555) 0.55 mg/dL 0.60-1.25 L TOTAL BILI (test code = 6204385056) 0.8 mg/dL 0.1-1.1 CALCIUM (test code = 3076675266) 8.9 mg/dL 8.6-10.6 T PROTEIN (test code = 2446481429) 7.5 g/dL 6.3-8.2 ALBUMIN (test code = 2073402269) 4.8 g/dL 3.5-5.0 ALK PHOS (test code = 0876765853) 113 U/L 34-122 ALTv (test code = 1742-6) 84 U/L 5-50 H AST(SGOT) (test code = 3662288214) 107 U/L 13-40 H eGFR (test code = 1755119149) mL/min/1.73m2 LOUISE (test code = LOUISE) Association [...] imaging tests). Lab Interpretation (test code = 48645-0) Abnormal [facility] HospitalLIP[facility], [id number] 10:03:21* Test Item Value Reference Range Interpretation Comme [facility] LIPASE (test code = 3967664318) 193 U/L 0-220 Lab Interpretation (test cod e = 54577-5) Normal [facility] WITH [id number] 09:39:17* Test Item Value Reference Range Interpretation Comme nts WBC (test code = 6690-2) See_Comment [Automated [employer]] The system which generated this result transmitted reference range: 4.20 - 10.70 10*3/?L. The reference range was not used to interpret this result as normal/abnormal. RBC (test code = 789-8) See_Comment [Automated [employer]] The system which generated this result transmitted [...] g/dL 31.2-35.0 H RDW-SD (test code = 85930-5) 44.4 fL 38.5-51.6 RDW-CV (test code = 788-0) 11.9 % 12.1-15.4 L PLT (test code = 777-3) See_Comment [Automated [employer]] The system which generated this result transmitted reference range: 150 - 328 10*3/?L. The reference range was not used to interpret this result as normal/abnormal. MPV (test code = 81331-5) 9.2 fL 9.8-13.0 L NRBC/100 WBC (test code = 9302235452) See_Comment [Automated [employer] ssage] The system which generated this result transmitted reference range: 0.0 - 10.0 /100 WBCs. The reference range was not used to interpret this result as normal/abnormal. NRBC x10^3 (test code = 2992334100) <0.01 See_Comment [Automated [employer] ge] The system which generated this result transmitted reference range: 10*3/?L. The reference range was not used to interpret this result as normal/abnormal. GRAN MAT (NEUT) % (test code = 770-8) 69.9 % IMM GRAN % (test code = 7950330910) 1.50 % LYMPH % (test code = 736-9) 18.9 % MONO % (test code = 5905-5) 7.0 % EOS % (test code = 713-8) 1.9 % BASO % (test code = 706-2) 0.8 % GRAN MAT x10^3(ANC) (test code = 1954545751) 7.15 10*3/uL 1.99-6.95 H IMM GRAN x10^3 (test code = 3227944313) 0.15 10*3/uL 0.00-0.06 H LYMPH x10^3 (test code = 731-0) 1.93 10*3/uL 1.09-3.23 MONO x10^3 (test code = 742-7) 0.72 10*3/uL 0.36-1.02 EOS x10^3 (test code = 711-2) 0.19 10*3/uL 0.06-0.53 BASO x10^3 (test code = 704-7) 0.08 10*3/uL 0.01-0.09 Lab Interpretation (test code = 21301-4) Abnormal [facility] Notes Date/Time Note Provider Source 2024-02-17 21:43:52 7993-07-51K29:43:52F ormatting of this note might be different from the original.No answer in lobby. 65031-4Fykjujydq department IegvAU7525-10-75C13:44:07[facility] NoteTXT1.2.840.954272.1.13.104.2.7 .2.639253|[id number] for patient ejtf08998-2TrgjIVSOLWMXPPEXwjceqzz d C-CDA narrative [id number] J Hoot RN[id number] 53CNWLDINKASWTDMGZEYHZHF3832-13-68 T21:44:071.2.840.987618.1.72.3.15| 1.2.840.935964.1.13.104.2.7.2.7278 [id number] Angy Turner RN [facility] 2024-02-17 21:42:10 1742-51-85B56:42:10F ormatting of this note might be different from the original.Pt's blood pressure cuff and pulse ox found lying on chair. Called for patient in lobby 2 times, no answer. No one in lobby. 31092-9Slnnvtdae department DgwgED7009-57-41S49:44:10[facility] NoteTXT1.2.840.056541.1.13.104.2.7 .2.517634|[id number] for patient foar20497-5QzkuINKGVKQKGOCXiagdvzl d C-CDA narrative [id number] BRADFORD[id number] 46MQXTKIJNUSGEWMAMGURRRC1236-32-94 T21:44:101.2.840.207087.1.72.3.15| 1.2.840.801995.1.13.104.2.7.2.7278 [id number] Sierra Samaniego RN [facility] 2024-02-17 21:41:09 4307-25-20W44:41:09F ormatting of this note might be different from the original.Pt not in lobby or in room. No answer in lobby. 25188-3Ffpchyvdb department VycvKI2860-69-03C84:41:40[facility] NoteTXT1.2.840.270739.1.13.104.2.7 .2.060924|[id number] for patient rdvx29046-5DhytPQKVMOCPLOSYlbpqktx d C-CDA narrative textUT[id number] 64SAGUZIHIWQQHLASJHXCNDC7589-02-91 T21:41:401.2.840.020796.1.72.3.15| 1.2.840.387795.1.13.104.2.7.2.7278 [id number] [facility] 2024-02-17 21:14:29 1822-90-51X97:14:29F ormatting of this note might be different from the original.Pt not in FT01-01 and no answer in lobby. 61978-9Bnxjhzqmk department ShqrEI4062-65-70K87:15:32[facility] NoteTXT1.2.840.571767.1.13.104.2.7 .2.869750|[id number] for patient mjfo95712-5VblwZQCDSDUFSQGXdbrlvev d C-CDA narrative text[id number] 09KLWJQKWWPKRKIGPPDVRXPC7638-37-92 T21:15:321.2.840.196720.1.72.3.15| 1.2.840.702844.1.13.104.2.7.2.7278 [id number] [facility] 2024-02-17 20:48:50 1459-12-66K32:48:50F ormatting of this note might be different from the original.Pt arrives ambulatory to ED c/o SOB, right upper abdominal pain, and left leg and hip pain. Pt states that he has been on prednisone for about 5 yrs which had given him osteoporosis which is causing his leg pain. Reports hx of COPD, o2 is generally @ 91 he says. 98559-9Tijstfcfa department Triage ojpmZW6603-42-59Q97:53:54[facility] department Triage noteTXT1.2.840.636044.1.13.104.2.7 .2.118609|[id number] for patient flnb85298-6Uxrtyruqb department NoteLNNARRATIVEFormatted C-CDA narrative [id number] BRADFORD[address] StreetJghmKfryfgeelMazelkevfUJUD46756957 16XJPRQNWHWQWNYGJDUADSZY0598-13-34 T20:53:541.2.840.315661.1.72.3.15| 1.2.840.884803.1.13.104.2.7.2.7278 [id number] Leah Lizama RN [facility] 2024-02-08 21:37:56 3715-47-89G47:37:56F ormatting of this note might be different from the original.Pt left AMA 81191-9Dekxudacu department HnufMJ0063-81-76A94:38:11[facility] NoteTXT1.2.840.163042.1.13.104.2.7 .2.445525|[id number] for patient hmuo89827-3VvxcQKOIYGPNQWYXsjwkvmi d C-CDA narrative vhjp696093136LqjprKylie Foster RN[address]vd[address]veston[place]TX[address] 65QSCKBKCWKNPQESTSJMDSOI8985-16-60 T21:38:111.2.840.751583.1.72.3.15| 1.2.840.740691.1.13.104.2.7.2.7278 [id number] Kylie Foster RN [facility] 2024-02-08 21:32:00 0172-27-24J77:32:00F ormatting of this note might be different [...] ambulatory with steady [place], [place] [address]-5Jzdvjafdg department TzndXW6463-36-21Y98:40:32[facility] NoteTXT1.2.840.720323.1.13.104.2.7 .2.283761|[id number] for patient rewu08634-3FsimZOMWZCVPGUQJbluowkz d C-CDA narrative [id number] 05UZREPMNBLYYTEXQHIWMMRP4437-97-70 T21:40:321.2.840.766252.1.72.3.15| 1.2.840.061126.1.13.104.2.7.2.7278 [id number] [facility] 2024-02-08 20:54:38 7214-06-15Q45:54:38F ormatting of this note might be different from the original.Pt states he uses O2 at home, portable O2 is broken [address]36-9Ndafzrdaq[address] VpkfXX8399-02-25B88:55:13[facility] NoteTXT1.2.840.580857.1.13.104.2.7 .2.994182|[id number] for patient ezrv12042-1EkxaTXZBLWNQPFGYsfpeurb d C-CDA narrative [id number] 21KVTFLAVJIDTLBRRVBHSZNM5960-54-95 T20:55:131.2.840.555171.1.72.3.15| 1.2.840.368894.1.13.104.2.7.2.7278 [id number] [facility] 2024-02-08 20:51:11 8492-38-39J36:51:11F ormatting of this note might be different from the original.Pt ambulates with cane 10008-0Lqmmvzrar department NqkhQM9880-29-57W44:51:26[facility] NoteTXT1.2.840.750701.1.13.104.2.7 .2.137482|[id number] for patient rcbe68862-2OkjaCBZJPVWAULYOlqzgayw d C-CDA narrative text[address]TXTX[address] 70CGDBHGLLHEHZPINZAIIMKI4421-97-44 T20:51:261.2.840.588482.1.72.3.15| 1.2.840.039598.1.13.104.2.7.2.7278 [id number] [facility] 2024-02-08 20:43:13 4950-20-19A28:43:13F ormatting of this note might be different from the original.CC: Pt arrives SOB after leaving [employer] earlier in the shift. He reports he [...] 3 BC powders and drank 3 beers." 79386-1Wqoizetop department Triage xlmtNG9588-54-80A79:48:36[facility] Triage noteTXT1.2.840.509494.1.13.104.2.7 .2.743576|[id number] for patient afdz32888-3Ovidahrar department NoteLNNARRATIVEFormatted C-CDA narrative lacq544866038Hmfkkg R Shehadeh RNUT[address]TXTX[address] 41IBTCZCGSTJDCOWAIVMGJKQ2324-33-91 T20:48:361.2.840.083849.1.72.3.15| 1.2.840.471278.1.13.104.2.7.2.7278 79_[id number] Leah King RN [facility] 2024-02-08 17:04:05 0034-89-83B58:04:05F ormatting of this note might be different [...] of the department with a steady gait. 11193-8Lgtdixsyu department PficIY0818-49-11H10:05:22[facility] NoteTXT1.2.840.831491.1.13.104.2.7 .2.025446|[id number] for patient ucns17268-2QhwgUXXOYDDJXSCQodjfezn d C-CDA narrative dmuq258226151Qdsp M Hayes RN[address]vdGalvestonGalvestonTXTX[address] 92GHOIONVBRGFBHTYOWFYGBM5051-67-87 T17:05:221.2.840.768472.1.72.3.15| 1.2.840.747676.1.13.104.2.7.2.7278 [id number] Allison Zhang RN [facility] 2024-02-08 14:23:02 9018-05-53G80:23:02F ormatting of this note might be different from the original.Pt ambulates with a cane 50989-7Ibbjakktg department TysnGN9670-89-36N27:23:12[facility] department NoteTXT1.2.840.495229.1.13.104.2.7 .2.773609|[id number] for patient btbe21786-1KazcJRBNLDMBXPAPbaikndo d C-CDA narrative bjlb813451771WoqrpKylie Foster RN[id number] 20KRIHQYYQZQZGZVDBQXPTPB1056-28-36 T14:23:121.2.840.995795.1.72.3.15| 1.2.840.652440.1.13.104.2.7.2.7278 79_[id number] Kylie Foster RN [facility] 2024-02-08 14:13:15 5450-81-53B39:13:15F ormatting of this note might be different [...] only thing that helps." Face is flushed. 55893-6Wjxisrtji department Triage fgzyPY2722-65-01X14:17:26[facility] Triage noteTXT1.2.840.583883.1.13.104.2.7 .2.047272|[id number] for patient qzsd26032-4Pdbdsmocp department NoteLNNARRATIVEFormatted C-CDA narrative [id number] Fief RNUT[address]TXTX[address] 56OZPXNPPGAICEVSXVTRNVEC1097-71-79 T14:17:261.2.840.364736.1.72.3.15| 1.2.840.224633.1.13.104.2.7.2.7278 [id number] Hali Aviles RN [facility] 2024-01-14 06:16:25 5376-83-51M01:16:25F ormatting of this note might be different [...] w/d, pt leaving in no apparent distress, 80952-1Wquhizjff department AekmVF5837-34-09Z51:17:20[facility] NoteTXT1.2.840.869625.1.13.104.2.7 .2.556025|[id number] for patient dxir04284-4PfqaPQDNWIYQTSTXyfgptuq d C-CDA narrative textUT[address] EymbEefnefylfKahauntrlRTIR70978504 29WSDZJWGQFTINDUDBOMEXJC8391-47-68 T06:17:201.2.840.302552.1.72.3.15| 1.2.840.007218.1.13.104.2.7.2.7278 79_[id number] [facility] 2024-01-14 04:49:43 5010-20-66D43:49:43F ormatting of this note might be different [...] ext without difficulty, amb with steady gait 73625-2Mmrmpnzlu department Triage xjlgYZ1650-05-95Q46:55:49[facility] Triage noteTXT1.2.840.943236.1.13.104.2.7 .2.645188|[id number] for patient tblu10370-4Bejhfbxnt department NoteLNNARRATIVEFormatted C-CDA narrative yrij969159908Cswbsk R Shehadeh RN[address] WufuQeuvfxzjlFjdznrmkdUOVT22950329 00XDIVLXKAYAVUQDDFUFZIYS4959-77-92 T04:55:491.2.840.289723.1.72.3.15| 1.2.840.695906.1.13.104.2.7.2.7278 [id number] Leah King RN [facility] 2024-01-14 04:43:00 6193-55-65B99:43:00A ssociated Order(s): EKG-12 Lead ROUTINE ONCEPre-Procedure Diagnose(s): Chest pain, unspecified typePost-Procedure Diagnose(s): Chest pain, unspecified type [facility] Emergency Department NotePatient Name: Randy Edwards of : 1970 53 year old maleTreatment Room: TX1/XE9Msnhbds Record Number: [id number] Care Physician: Adrianna King Escorted by: Family [5]Mode of Arrival: Personal means [1]EMS 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 METABOLIC PANEL (55561) - AbnormalResult Value Ref RangeNA 138 135 [...] 49 (*) 13 - 40 U/LeGFR 93.3 mL/min/1.36c5UTO WITH DIFF - AbnormalWBC 11.59 (*) 4.20 [...] 220 U/LCOVID-19 (ID NOW RAPID TESTING) - QzkxvbVBXT-KhZ-8 Rapid ID NOW Not Detected Not DetectedETHANOLALCOHOL 62 mg/dLEKG:If EKG completed, see Procedure Note.Orders and Treatments:Orders Placed This EncounterProcedures XR CHEST 1 VW TROPONIN I COMP. METABOLIC PANEL (58478) LIPASE, SERUM CBC WITH DIFF N-Terminal Pro-Bnp Ethanol COVID-19 (ID NOW TESTING) Lab Only COVID Interpretation O2 Per ProtocolOrders Placed This EncounterMedications morpHINE (4 mg/mL) injection 4 mg ondansetron (ZOFRAN (PF)) injection 4 mg ipratropium-albuteroL (DUONEB) 0.5 mg-3 mg(2.5 mg base)/3 mL nebulizer solution 3 mLFirst Provider Eval:ED EventsDate/Time Event User Cbcmucsu95/07/24 0510 Medical Screening Begins JAC NAVARRO MD --01/14/24 0510 First Provider Evaluation JAC NAVARRO MD --ED COURSEDiagnosis/Impression as of 01/14/24 0605Chest pain, unspecified typeBronchitisProcedures:EKG-12 Lead ROUTINE ONCEDate/Time: 01/14/2024 5:24 AMPerformed by: Jac Navarro MDAuthorized by: Jac Navarro MDECG interpreted by ED Physician in the absence of a hair sample matcher: yesPrevious ECG:Previous ECG: Compared to currentSimilarity: No [...] on fileFollow-up:Electronically signed by:Jac Navarro MD01/14/24 0600 15720-3Fdwwpespf Emergency department MiwfUS6326-64-05Y88:00:50[facility] NoteTXT1.2.840.065580.1.13.104.2.7 .2.838472|[id number] for patient nvva68234-9Jnjgkyexx[address] [place] [address] NoteLNNARRATIVEFormatted C-CDA narrative textUT[address] XgdoGxpbpayqoWuqzeonzgPFUI99960454 67LQYXMDEQHSVMYBPZKIOFSL5650-04-45 T06:00:501.2.840.812990.1.72.3.15| 1.2.840.820924.1.13.104.2.7.2.7278 [id number] [facility] 2023-12-22 23:12:16 8987-35-27Y42:12:16F ormatting of this note might be different [...] with steady gait, in no apparent distress, 06744-0Hlzrczmic department MfcmOV2734-88-81S14:13:50[facility] NoteTXT1.2.840.229522.1.13.104.2.7 .2.444884|[id number] for patient mwbg23978-0WgmkKRRNYYFLCZNXxxfpwvu d C-CDA narrative uaas997344966Cbesb E Gómez MACHUCA[address]vestonTXTX[address] 19VURXVVAOCDRROXTYFCGRUK9005-63-86 T23:13:501.2.840.947329.1.72.3.15| 1.2.840.055581.1.13.104.2.7.2.7278 [id number] Mary Machado Gómez MACHUCA [facility] 2023-12-22 21:41:55 1523-00-23R07:41:55F ormatting of this note might be different from the original.Pt arrives ambulatory to ED reporting bleeding with stools and 10/10 abdominal pain. States he was here last night but had to leave before receiving results d/t having to work. Says the pain became worse so he came back in. 78904-3Jywrtqfgr department Triage excbIH0492-74-87C83:48:52[facility] Triage noteTXT1.2.840.268619.1.13.104.2.7 .2.852851|[id number] for patient xwkd55899-6Bagtffzys department NoteLNNARRATIVEFormatted C-CDA narrative [id number] L Williams RN[address]TXTX[address] 77UMNUQEOICDTRUPPGINGWRK5593-40-45 T21:48:521.2.840.080177.1.72.3.15| 1.2.840.746615.1.13.104.2.7.2.7278 [id number] Leah Lizama RN [facility] 2023-12-21 21:31:00 9618-65-08O46:31:00F ormatting of this note might be different [...] with steady gait, appears in no distress. 55706-3Ttgfmsuqh department WahaAU8617-76-57T92:38:39[facility] NoteTXT1.2.840.235504.1.13.104.2.7 .2.035280|[id number] for patient okex83327-1FtinINAOXFVDZARAjqwlzxp d C-CDA narrative iixj630627279DophuMary Magaña RN[address]vdGalvestonGalvestonTXTX[address] 50ELTQZWPRHVBERZJXJCQALS5838-62-50 T21:38:391.2.840.268572.1.72.3.15| 1.2.840.558325.1.13.104.2.7.2.7278 [id number] Mary Magaña RN [facility] 2023-12-21 21:30:00 0704-24-28Z38:30:00F ormatting of this note might be different from the original.Pt wished to leave AMA. Pt states " yall were wonderful but 3am come real early." 70502-3Rfogpjdxi department NdyaBD6884-05-86M81:36:58[facility] NoteTXT1.2.840.126130.1.13.104.2.7 .2.561297|[id number] for patient rftf44538-6RubvUVQBZBOKQNSDtgguzgk d C-CDA narrative textUT93 [address]TXTX[address] 11AADZUSZYXDCWTGIYPCZMAW3192-15-07 T21:36:581.2.840.728466.1.72.3.15| 1.2.840.552552.1.13.104.2.7.2.7278 [id number] [facility] 2023-12-21 21:26:22 0859-93-64H38:26:22F ormatting of this note might be different from the original.Pt asking to go outside and smoke, wants to go home and eat. Pt educated on risks of leaving AMA. Provider informed pt is in pain. 50254-7Vdyojjkii department XmdlAQ6735-66-32A38:33:35[facility] NoteTXT1.2.840.903929.1.13.104.2.7 .2.272255|[id number] for patient xenc19108-4ZvemHQOVCXMEAXTPolgdfga d C-CDA narrative hpcg178500079Ljyipk R Shehadeh RNUT[address]TXTX[address] 99BXWRNPDKMRZBTXHBUQLWHX2107-60-66 T21:33:351.2.840.145375.1.72.3.15| 1.2.840.612374.1.13.104.2.7.2.7278 [id number] Leah King RN [facility] 2023-12-21 19:31:50 7364-83-89X19:31:50F ormatting of this note might be different from the original.Pt arrived ambulatory with complaints of bright red rectal bleeding and generalized abdominal pain this afternoon. Pt states his stool was normal consistency but continuous bright red blood. 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 States he vomits all the time but not something new today. 04370-1Pnuwinpac department Triage ktwsFY0073-63-38L62:33:28[facility] department Triage noteTXT1.2.840.185839.1.13.104.2.7 .2.254549|[id number] for patient lxiv47446-7Kndtkcgfm department NoteLNNARRATIVEFormatted C-CDA narrative tuuj752101458Zalzch D Roman RN[address]TXTX[address] 03YIRJRNVLOYPQPZXVCJMIUL1634-34-92 T19:33:281.2.840.213720.1.72.3.15| 1.2.840.722689.1.13.104.2.7.2.7278 [id number] Gabi Esqueda RN [facility] 2023-11-10 20:13:39 0896-53-05C61:13:39F ormatting of this note might be different from the original.Pt requesting to leave AMA. ERP notified. Pt counseled to remain, risks of leaving AMA including discussed with pt. Pt continued to decline further ER evaluation at this time. AMA papers signed, witnessed, and placed on patient's chart. Pt left ambulatory. VS stable, no ataxia noted, GCS 15, A&Ox4. 94646-3Hgaqqvmym department XlhnYE3865-33-21A38:13:52[facility] department NoteTXT1.2.840.335600.1.13.104.2.7 .2.536582|[id number] for patient mwff16266-5WfjxBXRELTQVHWLKeqajgah d C-CDA narrative [id number] R Goodrich RN[address]TXTX[address] 93LZPMVFKURJZDNBUNLVGWQA9612-21-69 T20:13:521.2.840.760601.1.72.3.15| 1.2.840.478695.1.13.104.2.7.2.7278 [id number] Briseida Mderano RN [facility] 2023-11-10 19:30:29 0042-84-42F00:30:29F ormatting of this note might be different from the original.Patient arrived to ED c/o SOB and COPD exacerbation. Symptoms started this morning. Patient wears 3L NC at home. Patient is a smoker. Patient states having the chills, diarrhea, and vomiting. States having sharp pains in chest from coughing. 07488-8Axzabwbjm department Triage wmsrDK6578-49-99Q40:35:27[facility] Triage noteTXT1.2.840.017769.1.13.104.2.7 .2.878224|[id number] for patient ntip03520-1Rzwiiatoh department NoteLNNARRATIVEFormatted C-CDA narrative gnzh772893340Obsdps-Jjoli McInnis RNUT[address] TwstEqcgeorgyQtqupvlfoIWTF01449521 20LDSZJBCYZVYQYHYQIXFHPB0858-73-07 T19:35:271.2.840.858582.1.72.3.15| 1.2.840.499070.1.13.104.2.7.2.7278 [id number] Sreedhar Gomez RN [facility]
[2024-05-07] MEDS ORDERED: ONDANSETRON 4 MG/2 ML VIAL ONE (10:41)
--- NOTE | 2024-05-07 11:48 | EDPHYS ---
Physician Documentation [facility] Name: Randy Briones Age: 53 yrs Sex: Male : 1970 Arrival Date: 05/07/2024 Time: 10:00 Bed 7 Private MD: ED Physician Dheeraj Thibodeaux HPI: 05/07 11:43 This 53 yrs old Male presents to ER via EMS with complaints of Nausea, ETOH Abuse. rn 11:43 The patient presents to the emergency department with nausea. Onset: The rn symptoms/episode began/occurred this morning. The symptoms are aggravated by nothing. The symptoms are alleviated by nothing. Severity of symptoms: At their worst the symptoms were mild in the emergency department the symptoms are unchanged. The patient has experienced similar episodes in the past. Patient seen last night here in ER for chest pain. Patient has been coming almost on daily basis. Patient states still having intermittent chest pain but here because took all prescribed medications and feel nauseous. No vomiting. No abdominal pain. No syncope.. Historical: - Allergies: 10:12 Lisinopril; ld1 - PMHx: 10:12 Alcoholism; COPD; Hepatitis B (Hypertension); home 02 3LNC PRN; Hypertension; ld1 Osteoporosis; - PSHx: 10:12 Amputation of left index finger; ld1 - Immunization history:: Adult Immunizations up to date. - Infectious Disease History:: Denies. - Social history:: Smoking status: Patient reports the use of cigarette tobacco products, smokes one-half pack cigarettes per day, Patient uses alcohol, on a daily basis. - Family history:: not pertinent. - Hospitalizations: : No recent hospitalization is reported. ROS: 11:43 Constitutional: Negative for fever, chills, and weight loss, Cardiovascular: Positive rn for chest pain Respiratory: Negative for shortness of breath, cough, wheezing, and pleuritic chest pain, Abdomen/GI: Negative for abdominal pain, nausea, vomiting, diarrhea, and constipation, MS/Extremity: Negative for injury and deformity, Skin: Negative for injury, rash, and discoloration, Neuro: Positive for generalized weakness Exam: 11:43 Constitutional: This is a well developed, well nourished patient who is awake, alert, rn and in no acute distress. Cardiovascular: Regular rate and rhythm. No pulse deficits. Respiratory: No increased work of breathing, no retractions or nasal flaring. Abdomen/GI: Soft, non-tender MS/ Extremity: Pulses equal, no cyanosis. Neurovascular intact. Full, normal range of motion. Equal circumference. Neuro: Awake and alert, GCS 15 13:42 ECG was reviewed by the Attending Physician. rn Vital Signs: 10:04 BP 118 / 79; Pulse 107; Resp 18; Temp 98.2(TE); Pulse Ox 97% on R/A; Weight 79.38 kg; ld1 Height 5 ft. 10 in. ; 11:10 BP 129 / 89; Pulse 94; Resp 18; Pulse Ox 98% on R/A; ld1 10:04 Body Mass Index 25.11 (79.38 kg, 177.8 cm) ld1 MDM: 10:05 Patient medically screened. rn 11:43 Differential diagnosis: Gastritis, alcoholic gastritis, side effect of medication. Data rn reviewed: vital signs, nurses notes. Care significantly affected by the following chronic conditions: Hypertension, Chronic Obstructive Pulmonary Disease. Counseling: I had a detailed discussion with the patient and/or guardian regarding. Refusal of service: The patient/guardian displays adequate decision making capability and despite a detailed discussion of alternatives, benefits, risks, and consequences refuses: all lab tests, Medications, all X-rays. ED course: Shortly after arrival patient states his is here to pick him up, does not want anything done, understands risk of leaving without further workup.. 05/07 10:21 Order name: XRAY Chest (1 view) rn 05/07 10:21 Order name: Cardiac monitoring; Complete Time: 10:47 rn 05/07 10:21 Order name: EKG - Nurse/Tech; Complete Time: 10:47 rn 05/07 10:21 Order name: O2 Per Protocol; Complete Time: 10:21 rn 05/07 10:21 Order name: O2 Sat Monitoring; Complete Time: 10:21 rn EC:42 Rate is 96 beats/min. Rhythm is regular. QRS Dwight is Normal. CA interval is normal. QRS rn interval is normal. No Q waves. T waves are Normal. No ST changes noted. Clinical impression: NSR w/ Non-specific ST/T Changes. Interpreted by me. Reviewed by me. 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 EDMS EDMS 10:22 10:22 CBC+H.LAB.BRZ ordered. EDMS EDMS 10:22 10:22 HEPATIC FUNCTION+C.LAB.BRZ ordered. EDMS EDMS 10:22 10:22 PROTIME (+INR)+COAG.LAB.BRZ ordered. EDMS EDMS 10:22 10:22 Troponin High Sensitivity+C.LAB.BRZ ordered. EDMS EDMS 10:22 10:22 Chest Single View+RAD.RAD.BRZ ordered. EDMS EDMS
--- NOTE | 2024-05-07 11:48 | ER ---
Nurse's Notes [facility] Name: Randy Briones Age: 53 yrs Sex: Male : 1970 Arrival Date: 05/07/2024 Time: 10:00 Bed 7 Private MD: Diagnosis: Nausea;Chest pain, unspecified Presentation: 05/07 10:04 Chief complaint: EMS states: toned out to patient home for taking pills to stop ld1 drinking and drinking alcohol. Coronavirus screen: At this time, the client does not indicate any symptoms associated with coronavirus-19. Ebola Screen: No symptoms or risks identified at this time. Initial Sepsis Screen: Does the patient meet any 2 criteria? No. Patient's initial sepsis screen is negative. Does the patient have a suspected source of infection? No. Patient's initial sepsis screen is negative. Risk Assessment: Do you want to hurt yourself or someone else? Patient reports no desire to harm self or others. Onset of symptoms was May 07, 2024. 10:04 Method Of Arrival: EMS: [facility] ld1 10:04 Acuity: CANDACE 3 ld1 Triage Assessment: 10:12 General: Appears in no apparent distress. uncomfortable, Behavior is anxious. Pain: ld1 Denies pain. EENT: No signs and/or symptoms were reported regarding the EENT system. Neuro: Level of Consciousness is awake, alert, obeys commands, Oriented to person, place, time, situation. Cardiovascular: Capillary refill < 3 seconds Patient's skin is warm and dry. Rhythm is sinus tachycardia. Respiratory: Airway is patent Respiratory effort is even, unlabored. GI: Abdomen is round non-distended, Reports nausea. : No signs and/or symptoms were reported regarding the genitourinary system. Derm: No signs and/or symptoms reported regarding the dermatologic system. Musculoskeletal: No signs and/or symptoms reported regarding the musculoskeletal system. Historical: - Allergies: 10:12 Lisinopril; ld1 - PMHx: 10:12 Alcoholism; COPD; Hepatitis B (Hypertension); home 02 3LNC PRN; Hypertension; ld1 Osteoporosis; - PSHx: 10:12 Amputation of left index finger; ld1 - Immunization history:: Adult Immunizations up to date. - Infectious Disease History:: Denies. - Social history:: Smoking status: Patient reports the use of cigarette tobacco products, smokes one-half pack cigarettes per day, Patient uses alcohol, on a daily basis. - Family history:: not pertinent. - Hospitalizations: : No recent hospitalization is reported. Screenin:14 [facility] ED Fall Risk Assessment (Adult) History of falling in the last 3 months, ld1 including since admission No falls in past 3 months (0 pts) Confusion or Disorientation No (0 pts) Intoxicated or Sedated Yes (3 pts) Impaired Gait No (0 pts) Mobility Assist Device Used No (0 pt) Altered Elimination No (0 pt) Score/Fall Risk Level 3 or more points = High Risk Oriented to surroundings, Maintained a safe environment, Educated pt \\T\\ family on fall prevention, incl call for assistance when getting out of bed, Assessed \\T\\ reinforced patient's understanding of fall precautions, Provided non-skid footwear, Hourly rounding (assess needs \\T\\ fall precautionary measures) done, Used ambulatory aids as needed (educated on \\T\\ assisted with), Used gait belt as appropriate Implemented a Fall Risk Plan of Care, Apply high fall risk patient identification: yellow non skid footwear/ fall signage, Placed fall mat w/ non beveled edge next to bed, Activated bed/chair alarm, Remained w/in arm's length of patient and in sight while toileting, Offered frequent toileting (1:1 observation), Remained with patient while ambulating, Utilized family, sitter, or virtual bilingual medical receptionist as indicated. Abuse screen: Denies threats or abuse. Denies injuries from another. Nutritional screening: No deficits noted. Tuberculosis screening: No symptoms or risk factors identified. Assessment: 10:14 Reassessment: See triage assessment. ld1 11:16 Reassessment: Pt not wanting to stay. States "I want to leave, I feel fine now." ld1 Notified ERP. Vital Signs: 10:04 BP 118 / 79; Pulse 107; Resp 18; Temp 98.2(TE); Pulse Ox 97% on R/A; Weight 79.38 kg; ld1 Height 5 ft. 10 in. ; 11:10 BP 129 / 89; Pulse 94; Resp 18; Pulse Ox 98% on R/A; ld1 10:04 Body Mass Index 25.11 (79.38 kg, 177.8 cm) ld1 ED Course: 10:04 Patient arrived in ED. la1 10:05 Dheeraj Thibodeaux MD is Attending Physician. rn 10:07 Triage completed. ld1 10:12 Arm band placed on right wrist. ld1 10:14 Patient has correct armband on for positive identification. Placed in gown. Bed in low ld1 position. Call light in reach. Side rails up X2. gambling monitor on. Pulse ox on. NIBP on. Door closed. Noise minimized. Warm blanket given. 10:14 No provider procedures requiring assistance completed. ld1 10:58 Shena Benson, RN is Primary Nurse. ld1 11:17 Patient did not have IV access during this emergency room visit. ld1 12:11 XRAY Chest (1 view) In Process Unspecified. EDMS Administered Medications: No medications were administered Medication: 11:17 VIS not applicable for this client. ld1 Outcome: 11:47 Discharge ordered by . rn 11:48 Discharged to home ambulatory, ld1 11:48 Condition: unchanged 11:48 Discharge instructions given to patient, Instructed on discharge instructions, follow up and referral plans. 11:49 Patient left the ED. ld1 Signatures: Dispatcher [employer] EDMS Dheeraj Thibodeaux MD MD rn Attema, Lee, AQUATIC BIOLOGIST-C AQUATIC BIOLOGIST-Cla1 Shena Benson, BRIGETTE RN ld1
[2024-05-07 12:11] VITALS: BP 129/89; TEMP 98.2; O2SAT 98
--- NOTE | 2024-05-07 12:42 | RAD REPORT ---
EXAM DESCRIPTION: RADChest Single View05/07/2024 12:09 pm CLINICAL HISTORY: CHEST PAIN COMPARISON: Chest Single View dated 05/07/2024; Chest Single View dated 05/04/2024; Chest Single View dated 04/29/2024; Chest Single View dated 04/26/2024 TECHNIQUE: Portable AP view of the chest. FINDINGS: The lungs are clear. No pneumothorax or effusion. The cardiomediastinal contours are unre markable. IMPRESSION: No acute cardiopulmonary process.
--- NOTE | 2024-05-09 14:20 | EKG ---
Test Date: 2024-05-07 Test Time: 03:19:00 [employer] Applications Developer: ASNTOS MEASUREMENT RESULTS: Intervals: Rate: 103 MO: 130 QRSD: 108 QT: 356 QTc: 466 Bryan: P: 71 MO: 130 QRS: 83 T: 77 INTERPRETIVE STATEMENTS: Sinus tachycardia Otherwise normal ECG Compared to ECG 05/05/2024 03:04:35 Sinus rhythm no longer present Left posterior fascicular block no longer present Electronically Signed On 05-09-24 14:15:37 CDT by Rosalino Albert
== END 2024-05-07 11:49 | disposition home or self-care (01) ==
LOC: ER 10:00
DX: R11.0 Nausea (principal); R07.9 Chest pain, unspecified; I10 Essential (primary) hypertension; F17.210 Nicotine dependence, cigarettes, uncomplicated; F10.20 Alcohol dependence, uncomplicated; J44.9 Chronic obstructive pulmonary disease, unspecified; Z99.81 Dependence on supplemental oxygen
CPT/HCPCS: 71045; J2405; 93005; 99284

== ENCOUNTER 2024-07-16 09:42 | Emergency (ER) | payer OTHER ==
--- OUTSIDE RECORDS SUMMARY | 2024-07-16 09:47 | XMS REPORT | Continuity of Care Document ---
Author Name Unknown Address [address] [facility] [address] [place] [address] [facility] Address [address] [facility] 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 Personnel Specialist Name Role Phone Juan [facility] Primary Care Physician WENDY BROWNLEE Attending Clinician Unava MYRNA Honeycutt Attending Clinician Unavailable DARIEN LOBO Attending Clinician Unavailable MINNA ORTA Attending Clinician UnavailSHARATH Noonan Attending Clinician Unavailable YARY CAMP Attending Clinician Unavailable Yary Camp NP Attending Clinician [phone] KEISHA DAVENPORT Attending Clinician UnaKeisha Carver MD Attending Clinician + Christina Victoria Attending Clinician [phone] JAC NAVARRO Attending Clinician Unavailable Jac Navarro MD Attending Clinician [phone] CAILIN ROWE Attending Clinician Unavailab QUENTIN Boothe Attending Clinician Unavailable Quentin Maceil DO Attending Clinician [phone] CHRISTY HOLLIDAY Attending Clinician Unavailable Christy Holliday MD Attending Clinician [phone] MARIA ELENA CHAN MEDICAL Attending George n Unavailable DENISE SUNG Attending Clinician Unavailable KARLEY ADAMS Attending Clinician Unavailable JAC NAVARRO Admitting Clinician Unavailable QUENTIN MACIEL Admitting Clinician Unavailable CHRISTY HOLLIDAY Admitting Clinician Unavailable Payers Payer Name Policy Type Policy Number Effective Date Expirati on Date Source [facility] [id number] 2024 00:00:00 [facility] COPAY FOCUS 9 [id number] 2024 00:00:00 [employer] [id number] 2023 00:00:00 [employer] 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: [place] FORMER 94 ON 9 [id number] 2023 00:00:00 Problems Condition Name Condition Details Condition Category Status Onset Date Resolution Date Last Treatment Date Treating Clinician Comments Source Acute exacerbati on of chronic obstructiv e pulmonary disease (COPD) Acute exacerbati on of chronic obstructiv e pulmonary disease (COPD) Disease Active 03-24 00:00: 00 [facility] Obesity (BMI 30-39.9) Obesity (BMI 30-39.9) Disease Active 03-24 00:00: 00 [facility] Allergies, Adverse Reactions, Alerts Allergy Name Allergy Type Status Severity Reaction(s) Onset Date Inactive Date Treating Clinician Comments Source Lisinopr il Propensi ty to adverse reaction s Active Anaphylaxis 03-24 00:00: 00 [facility] LISINOPR [place] DRUG INGREDI Active Anaphylaxis 03-24 00:00: 00 [facility] Social History Social Habit Start Date Stop Date Quantity Comments Source History of tobacco use Smokes tobacco daily [facility] function 2024-05-24 00:00:00 2024-05-24 00:00:00 [facility] Alcoholic beverage intake 2024-05-24 00:00:00 2024-05-24 00:00:00 4.29 /d [facility] Alcohol intake 2024-02-08 00:00:00 2024-02-08 00:00:00 4.29 /d [facility] Exposure to SARS-CoV-2 (event) 2022-10-04 00:00:00 2022-10-14 10:25:00 Not sure [facility] Tobacco use and exposure 2018-03-24 00:00:00 2018-03-24 00:00:00 User of smokeless tobacco [facility] Tobacco Comment 2018-03-24 00:00:00 2018-03-24 00:00:00 trying to quit [facility] Sex assigned at 1970 00:00:00 1970 00:00:00 [facility] Smoking Status Start Date Stop Date Source Smokes tobacco daily 2018-03-24 00:00:00 [facility] Medications Ordered Medication Name Filled Medication Name Start Date Stop Date Current Medication? Ordering Clinician Indication Dosage Frequency Signature (SIG) Comments Components Source albuterol sulfate HFA 90 mcg/actuati on aerosol inhaler 05-26 00:00: 00 Yes 1mcg/ac tuation Tunde Haro ipratropium 0.5 mg-albutero l 3 mg (2.5 mg base)/3 mL nebulizatio n soln 05-26 00:00: 00 Yes 1mg base)/3 mL Tunde Olamide Haro prednisone 10 mg tablet 05-26 00:00: 00 Yes 1mg Tunde Olamide Haro naltrexone 50 mg tablet 05-26 00:00: 00 Yes 1mg Tunde Olamide Haro spironolact one 25 mg tablet 05-26 00:00: 00 Yes 1mg Tunde Olamide Haro pantoprazol e 40 mg tablet,vel yed release 05-26 00:00: 00 Yes 1mg Tunde Haro oxybutynin chloride 5 mg tablet 05-26 00:00: 00 Yes 1mg Tunde Haro Vitamin B-1 100 mg tablet 05-26 00:00: 00 Yes 1mg Tunde Haro buspirone 10 mg tablet 05-26 00:00: 00 Yes 1mg Tunde Haro nitroglycer in 0.4 mg sublingual tablet 05-26 00:00: 00 Yes 1mg Tunde Haro clonazepam 0.5 mg tablet 05-26 00:00: 00 Yes 1mg Tunde Haro Spiriva Respimat 2.5 mcg/actuati on solution for inhalation 05-26 00:00: 00 Yes 2mcg/ac tuation Tunde Haro Celebrex 200 mg capsule 05-26 00:00: 00 Yes 1mg Tunde Haro cephalexin 500 mg capsule 05-26 00:00: 00 Yes 1mg Tunde Haro ketorolac (TORADOL) injection 30 mg 05-24 14:00: 00 05-24 14:34 :00 No 30mg 30 mg, Intramuscu lar, ONCE, 1 dose, On Thu05/24/24 at 0900, [facility] mupirocin 2 % ointment 05-24 00:00: 00 Yes [id number] Apply to area(s) 3 (three) times daily. [facility] cephALEXin 500 mg tablet 05-24 00:00: 00 06-01 04:59 :00 Yes [id number] 500mg Take 1 tablet by mouth 4 (four) times daily for [address] [facility] ketorolac (TORADOL) injection 30 mg 02-17 03:15: 00 02-17 15:14 :00 No 30mg 30 mg, Slow IV Push, ONCE, 1 dose, On Thu02/17/24 at 2215, Routine [facility] methylpredn isolone sod succ (SOLU-MEDRO L) injection 125 mg 02-17 03:00: 00 02-17 14:59 :00 No 125mg 125 mg, Intravenou s, ONCE, 1 dose, On Thu02/17/24 at 2200, [address] [facility] ipratropium -albuteroL (DUONEB) 0.5 mg-3 mg(2.5 mg base)/3 mL nebulizer solution 6 mL 02-17 03:00: 00 02-17 14:59 :00 No 6mL 6 mL, Inhalation , ONCE NOW, 1 dose, On Thu02/17/24 at 2200, Routine [facility] NaCl 0.9% (NS) bolus infusion 1,000 mL 02-17 03:00: 00 02-17 14:59 :00 No 1000mL at 999 mL/hr, 1,000 mL, IV Infusion, ONCE, 1 dose, On Thu02/17/24 at 2200, [facility] triamterene -hydrochlor othiazide 37.5-25 mg per capsule 02-16 20:52: 37 02-16 00:00 :00 No 1{capsu le} Take 1 capsule by mouth every morning. [facility] albuterol 5 mg/mL nebulizer solution 02-16 20:51: 42 02-16 00:00 :00 No 2.5mg Inhale 2.5 mg every 6 (six) hours as needed for Wheezing or Shortness of Breath. [facility] ketorolac (TORADOL) injection 15 mg 02-08 03:00: 00 02-08 02:21 :00 No 15mg 15 mg, Slow IV Push, ONCE, 1 dose, On Thu02/08/24 at 2200, Routine [facility] iopamidol (ISOVUE 370-500 mL) injection 100 mL 02-07 22:30: 00 02-07 22:30 :00 No [id number] 100mL 100 mL, Intravenou s, ONCE, 1 dose, On Thu02/08/24 at 1730, Routine [facility] ipratropium -albuteroL (DUONEB) 0.5 mg-3 mg(2.5 mg base)/3 mL nebulizer solution 3 mL 02-07 21:15: 00 02-07 20:45 :00 No 3mL 3 mL, Inhalation , ONCE, 1 dose, On Thu02/08/24 at 1615, Routine [facility] morpHINE (2 mg/mL) injection 4 mg 02-07 21:15: 00 02-07 20:27 :00 No 4mg 4 mg, Slow IV Push, ONCE, 1 dose, On Thu02/08/24 at 1615, STAT [facility] ondansetron (ZOFRAN (PF)) injection 4 mg 02-07 [...] dose, On Thu02/08/24 at 1600, Routine [facility] ipratropium -albuteroL (DUONEB) 0.5 mg-3 mg(2.5 mg base)/3 mL nebulizer solution 3 mL 02-07 20:30: 00 02-07 19:31 :00 No 3mL 3 mL, Inhalation , ONCE, 1 dose, On Thu02/08/24 at 1530, Routine [facility] HYDROcodone -acetaminop hen (NORCO) 10-325 mg [...] 1 dose, On Thu01/14/24 at 0700, [facility] ondansetron (ZOFRAN (PF)) injection 4 mg 01-13 11:30: 00 01-13 11:37 :00 No 4mg 4 mg, Slow IV Push, ONCE, 1 dose, On Kym 01/14/24 at 0530, [facility]UR[facility] morpHINE (4 mg/mL) injection 4 mg 01-13 11:30: 00 01-13 11:37 :00 No 4mg 4 mg, Slow IV Push, ONCE, 1 dose, On Kym 01/14/24 at 0530, STAT [facility] azithromyci n (ZITHROMAX Z-PORTER) 250 mg tablet 01-13 00:00: 00 02-16 00:00 :00 No [id number] Take 500 mg on day 1 then 250 mg on days 2-5 [facility] predniSONE 20 mg tablet 01-13 00:00: 00 02-16 00:00 :00 No [id number] Take 1 po tid x 2 days, then take 1 po bid x 3 days, then take 1 po daily x [address] [facility] acetaminoph en-codeine 300-30 mg tablet 01-13 00:00: 00 01-21 04:59 :00 No [id number] 1{tbl} Take 1 tablet by mouth every 6 (six) hours as needed for Pain (scale 7-10) (severe cough) for up to 7 days. Indication s: acute pain, severe cough [facility] clonazePAM 1 mg tablet 12-26 00:00: 00 02-16 00:00 :00 No 1mg Take 1 tablet by mouth at bedtime as needed for Other (anxiety). [facility] KCL (KLOR-CON M20) tablet 40 mEq 12-23 05:00: 00 12-23 05:07 :00 No 40meq 40 mEq, Oral, ONCE, 1 dose, On Thu12/22/23 at 2300, [facility] NaCl 0.9% (NS) bolus infusion 1,000 [...] 1 dose, On Thu12/22/23 at 2215, Routine [facility] famotidine (PEPCID (PF)) injection 20 mg 12-23 04:15: 00 12-23 04:15 :00 No 20mg 20 mg, Slow IV Push, ONCE, 1 dose, On Thu12/22/23 at 2215, [facility] HYDROcodone -acetaminop hen (NORCO) 10-325 mg tablet 1 tablet 12-22 04:30: 00 12-22 16:29 :00 No 1{tbl} 1 tablet, Oral, ONCE, 1 dose, On Thu12/21/23 at 2230, Routine [facility] pantoprazol e (PROTONIX) 80 mg in NaCl 0.9% (NS) 20 mL syringe 12-22 04:15: 00 12-22 16:14 :00 No 80mg 80 mg, IV Push, ONCE, 1 dose, On Thu12/21/23 at 2215, Administer over 2 Minutes, [address] [facility] iopamidol (ISOVUE 370-500 mL) injection 100 mL 12-22 03:30: 00 12-22 03:30 :00 No [id number] 100mL 100 mL, Intravenou s, ONCE, 1 dose, On Thu12/21/23 at 2130, Routine [facility] morpHINE (4 mg/mL) injection 4 mg 12-22 03:30: 00 12-22 02:16 :00 No 4mg 4 mg, Slow IV Push, ONCE, 1 dose, On Thu12/21/23 at 2130, Routine [facility] ondansetron (ZOFRAN (PF)) injection 4 mg 12-22 02:45: 00 12-22 02:02 :00 No 4mg 4 mg, Slow IV Push, ONCE, 1 dose, On Thu12/21/23 at 2045, Routine [facility] hydrocortis one 25 mg suppository 12-22 00:00: 00 Yes [id number] 25mg Insert 1 Suppositor y into rectum 2 (two) times daily as needed for Rectal itching/pa in. [facility] ondansetron 4 mg disintegrat ing tablet 12-22 00:00: 00 02-16 00:00 :00 No [id number] 4mg Take 1 tablet by mouth every 8 (eight) hours as needed for Nausea and Vomiting (N/V). [facility] amoxicillin -clavulanat e 875-125 mg per tablet 12-22 00:00: 00 01-02 05:59 :00 No [id number] 1{tbl} Take 1 tablet by mouth every 12 (twelve) hours for [address] [facility] methylpredn isolone sod succ (SOLU-MEDRO L) injection 125 mg 2022-11 08:45: 00 10-27 20:44 :00 No 125mg 125 mg, Slow IV Push, ONCE, 1 dose, On Thu10/27/23 at 0245, STAT [facility] ipratropium -albuteroL (DUONEB) 0.5 mg-3 mg(2.5 mg base)/3 mL nebulizer solution 3 mL 2022-11 08:45: 00 10-27 20:44 :00 No 3mL 3 mL, Inhalation , ONCE NOW, 1 dose, On Thu10/27/23 at 0245, [facility]UR[facility] diazePAM (VALIUM) tablet 10 mg 2022-11 07:45: 00 10-27 19:44 :00 No 10mg 10 mg, Oral, ONCE, 1 dose, On Thu10/27/23 at 0145, LAUR[facility] levoFLOXaci n (LEVAQUIN) tablet 500 mg 2022-11 07:45: 00 10-27 19:44 :00 No 500mg 500 mg, Oral, ONCE, 1 dose, On Thu10/27/23 at 0145, LAURYN
Re ason for Anti-Infec tive: Empiric Non-Surgic al Prophylaxi s
Durat ion of therapy: Once (ED) [facility] DICLOFEN SOD 75MG EC 04-08 00:00: 00 Yes Tunde Haro AZITHROMYCI N 250MG -31 00:00: 00 Yes Tunde Haro PREDNISONE 10MG 5-08 00:00: 00 Yes Tunde Haro TAKE ONE (1) TABLET(S) BY MOUTH ONCE A DAY. 5-05 00:00: 00 Yes Tunde Haro AMLODIPINE 10MG 0 -28 00:00: 00 Yes Tunde Olamide Tahir CLONAZEPAM 1MG -28 00:00: 00 Yes Tunde Haro PREDNISONE 20MG -23 00:00: 00 Yes Tunde Haro OLOPATADINE 0.1% RX ERICA -23 00:00: 00 Yes Tunde Haro INSTILL ONE DROP TWICE A DAY -21 00:00: 00 Yes Tunde Haro ALBUTEROL(V ) HFA 200 INH 4-05 00:00: 00 Yes Tunde Haro CHLORDIAZEP OXIDE 25MG CAPSULES 2022-0 4-04 00:00: 00 Yes Tunde Haro LORAZEPAM 2MG 3-10 00:00: 00 Yes 1999 Tunde Haro PREDNISONE 20MG 01-13 00:00: 00 Yes Tunde Haro AMOX/K CLAV [id number] 1768-0 3-03 00:00: 00 Yes Tunde Haro iopamidol (ISOVUE 370-500 mL) injection 70 mL 2021-11 18:30: 00 10-14 18:30 :00 No [id number] 70mL 70 mL, Intravenou s, ONCE, 1 dose, On Thu10/14/22 at 1230, Routine [facility] methylpredn isolone sod succ (SOLU-MEDRO L) injection 125 mg 2021-11 18:00: 00 Yes 125mg 125 mg, Intravenou s, Q6H, First dose on Thu10/14/22 at 1200, Until Discontinu ed, Routine [facility] furosemide (LASIX) injection 40 mg 2021-11 17:45: 00 10-14 16:39 :00 No 40mg 40 mg, IV Push, ONCE, 1 dose, On Thu10/14/22 at 1145, LAURYN [facility] ipratropium -albuteroL (DUONEB) 0.5 mg-3 mg(2.5 mg base)/3 mL nebulizer solution 3 mL 2021-11 17:30: 00 10-14 16:41 :00 No 3mL 3 mL, Inhalation , ONCE, 1 dose, On Thu10/14/22 at 1130, Routine [facility] FENTanyl PF (SUBLIMAZE (PF)) injection 50 mcg 2021-11 16:45: 00 10-14 16:39 :00 No 50ug 50 mcg, Slow IV Push, ONCE, 1 dose, On Thu10/14/22 at 1045, Routine [facility] levoFLOXaci n 750 mg tablet 2021-11 00:00: 00 02-16 00:00 :00 No [id number] 750mg Take 1 tablet by mouth every 24 (twenty-fo ur) hours. [facility] HYDROcodone -acetaminop hen (NORCO) 10-325 mg tablet 1 tablet 03-12 12:15: 00 03-12 11:21 :00 No 1{tbl} 1 tablet, Oral, ONCE, 1 dose, On Thu03/12/22 at 0715, Routine [facility] HYDROcodone -acetaminop hen 10-325 mg tablet 03-12 00:00: 00 03-20 04:59 :00 No [id number] 1{tbl} Take 1 tablet by mouth every 6 (six) hours as needed for Pain (scale 7-10) for up to 7 days. Indication s: acute pain [facility] ipratropium -albuteroL (DUONEB) 0.5 mg-3 mg(2.5 mg base)/3 mL nebulizer solution 3 mL 02-20 13:00: 00 Yes 3mL 3 mL, Inhalation , QID, First dose on Thu02/20/22 at 0800, Until Discontinu ed, Routine [facility] methylPREDN ISolone sod succ (SOLU-MEDRO L (PF)) injection 40 mg 02-20 11:45: 00 02-20 10:43 :00 No 40mg 40 mg, Intravenou s, ONCE, 1 dose, On Thu02/20/22 at 0645, STAT [facility] foLIC acid (FOLATE) tablet 1 mg 02-20 11:45: 00 02-20 10:41 :00 No 1mg 1 mg, Oral, ONCE, 1 dose, On Thu02/20/22 at 0645, [facility]UR[facility] thiamine (VITAMIN B1) injection 100 mg 02-20 11:45: 00 02-20 10:43 :00 No 100mg 100 mg, Intravenou s, ONCE, 1 dose, On Thu02/20/22 at 0645, [facility]URYN [facility] LORazepam (ATIVAN) injection 2 mg 02-20 11:45: 00 02-20 10:42 :00 No 2mg 2 mg, Slow IV Push, ONCE, 1 dose, On Thu02/20/22 at 0645, STAT [facility] ipratropium -albuteroL (DUONEB) 0.5 mg-3 mg(2.5 mg base)/3 mL nebulizer solution 3 mL 02-20 10:30: 00 02-20 09:34 :00 No 3mL 3 mL, Inhalation , ONCE, 1 dose, On [facility] 02/20/22 at 0530, Routine [facility] albuterol 90 mcg/actuati on inhaler 02-20 00:00: 00 Yes [id number] 2{puff} Inhale 2 Puffs every 4 (four) hours as needed for Wheezing or Shortness of Breath. [facility] triamterene -hydrochlor othiazid 37.5-25 mg tablet 02-20 00:00: 00 Yes [id number] 1{tbl} Take 1 tablet by mouth daily. [facility] chlordiazeP OXIDE 25 mg capsule 02-20 00:00: 00 Yes [id number] 25mg Take 1 capsule by mouth every 6 (six) hours as needed for Anxiety, Agitation, Heart Rate => [address] [facility] predniSONE 10 mg tablet 02-20 00:00: 00 02-16 00:00 :00 No [id number] TAKE ONE TABLET BY MOUTH DAILY [facility] albuterol 2.5 mg /3 mL (0.083 %) nebulizer solution 02-20 00:00: 00 02-16 00:00 :00 No [id number] 2.5mg Inhale 3 mL every 4 (four) hours. May also nebulize one extra every [address] [facility] budesonide- formoteroL 160-4.5 mcg/actuati on inhaler 02-20 00:00: 00 02-16 00:00 :00 No [id number] 2{puff} Inhale 2 Puffs 2 (two) times daily. [facility] albuterol 5 mg/mL nebulizer solution 07-16 14:02: 20 Yes 2.5mg Inhale 2.5 mg every 6 (six) hours as needed for Wheezing or Shortness of Breath. [facility] budesonide- formoterol 160-4.5 mcg/actuati on inhaler 07-16 00:00: 00 Yes 2{puff} Inhale 2 Puffs 2 (two) times daily. [facility] albuterol 2.5 mg /3 mL (0.083 %) nebulizer solution 07-16 00:00: 00 Yes 2.5mg Inhale 3 mL every 4 (four) hours as needed for Wheezing or Shortness of Breath. [facility] triamterene -hydrochlor othiazide 37.5-25 mg per capsule 03-26 16:32: 14 Yes 1{capsu le} Take 1 capsule by mouth every morning. [facility] amLODIPine 10 mg tablet 03-26 16:32: 14 Yes 10mg Take 10 mg by mouth at bedtime. [facility] gabapentin 100 mg capsule 03-26 16:32: 14 Yes 100mg Take 100 mg by mouth 2 (two) times daily as needed (MSK pain). [facility] foLIC acid 1 mg tablet 03-26 16:32: 14 Yes 1mg Take 1 mg by mouth daily. [facility] budesonide- formoterol 160-4.5 mcg/actuati on inhaler 03-26 00:00: 00 02-16 00:00 :00 No 2{puff} Inhale 2 Puffs 2 (two) times daily. [facility] Immunizations Ordered Immunization Name Filled Immunization Name Date Status Comments Source SARS-COV-2 COVID-19 PFIZER VACCINE 2021-02-03 00:00:00 Completed [facility] SARS-COV-2 COVID-19 PFIZER VACCINE 2021-02-03 00:00:00 Completed [facility] SARS-COV-2 COVID-19 PFIZER VACCINE 2021-02-03 00:00:00 Completed [facility] SARS-COV-2 COVID-19 PFIZER VACCINE 2021-01-13 00:00:00 Completed [facility] SARS-COV-2 COVID-19 PFIZER VACCINE 2021-01-13 00:00:00 Completed [facility] SARS-COV-2 COVID-19 PFIZER VACCINE 2021-01-13 00:00:00 Completed [facility] Pneumococcal Polysaccharide, PPSV23 (PNEUMOVAX) 2018-03-26 00:00:00 Completed [facility] Influenza Virus Vaccine Quad IM 3+ YRS 2018-03-26 00:00:00 Completed [facility] Pneumococcal Polysaccharide, PPSV23 (PNEUMOVAX) 2018-03-26 00:00:00 Completed [facility] Influenza Virus Vaccine Quad IM 3+ YRS 2018-03-26 00:00:00 Completed [facility] Pneumococcal Polysaccharide, PPSV23 (PNEUMOVAX) 2018-03-26 00:00:00 Completed [facility] Influenza Virus Vaccine Quad IM 3+ YRS 2018-03-26 00:00:00 Completed [facility] Pneumococcal Polysaccharide, PPSV23 (PNEUMOVAX) [facility] Influenza Virus Vaccine Quad IM 3+ YRS Unknown Completed [facility] SARS-COV-2 COVID-19 PFIZER VACCINE Unknown Completed [facility] SARS-COV-2 COVID-19 PFIZER VACCINE Unknown Completed [facility] Pneumococcal Polysaccharide, PPSV23 (PNEUMOVAX) Unknown Completed [facility] Influenza Virus Vaccine Quad IM 3+ YRS Unknown Completed [facility] SARS-COV-2 COVID-19 PFIZER VACCINE Unknown Completed [facility] SARS-COV-2 COVID-19 PFIZER VACCINE Unknown Completed [facility] Pneumococcal Polysaccharide, PPSV23 (PNEUMOVAX) Unknown Completed [facility] Influenza Virus Vaccine Quad IM 3+ YRS Unknown Completed [facility] SARS-COV-2 COVID-19 PFIZER VACCINE Unknown Completed [facility] SARS-COV-2 COVID-19 PFIZER VACCINE Unknown Completed [facility] Pneumococcal Polysaccharide, PPSV23 (PNEUMOVAX) Unknown Completed [facility] Influenza Virus Vaccine Quad IM 3+ YRS Unknown Completed [facility] SARS-COV-2 COVID-19 PFIZER VACCINE Unknown Completed [facility] SARS-COV-2 COVID-19 PFIZER VACCINE Unknown Completed [facility] Pneumococcal Polysaccharide, PPSV23 (PNEUMOVAX) Unknown Completed [facility] Influenza Virus Vaccine Quad IM 3+ YRS Unknown Completed [facility] SARS-COV-2 COVID-19 PFIZER VACCINE Unknown Completed [facility] SARS-COV-2 COVID-19 PFIZER VACCINE Unknown Completed [facility] Pneumococcal Polysaccharide, PPSV23 (PNEUMOVAX) Unknown Completed [facility] Influenza Virus Vaccine Quad IM 3+ YRS Unknown Completed [facility] SARS-COV-2 COVID-19 PFIZER VACCINE Unknown Completed [facility] SARS-COV-2 COVID-19 PFIZER VACCINE Unknown Completed [facility] Pneumococcal Polysaccharide, PPSV23 (PNEUMOVAX) Unknown Completed [facility] Influenza Virus Vaccine Quad IM 3+ YRS Unknown Completed [facility] SARS-COV-2 COVID-19 PFIZER VACCINE Unknown Completed [facility] SARS-COV-2 COVID-19 PFIZER VACCINE Unknown Completed [facility] Pneumococcal Polysaccharide, PPSV23 (PNEUMOVAX) Unknown Completed [facility] Influenza Virus Vaccine Quad IM 3+ YRS Unknown Completed [facility] SARS-COV-2 COVID-19 PFIZER VACCINE Unknown Completed [facility] SARS-COV-2 COVID-19 PFIZER VACCINE Unknown Completed [facility] Pneumococcal Polysaccharide, PPSV23 (PNEUMOVAX) Unknown Completed [facility] Influenza Virus Vaccine Quad IM 3+ YRS Unknown Completed [facility] SARS-COV-2 COVID-19 PFIZER VACCINE Unknown Completed [facility] SARS-COV-2 COVID-19 PFIZER VACCINE Unknown Completed [facility] Vital Signs Vital Name Observation Time Observation Value Comments S ource Systolic blood pressure 2024-05-24 13:51:42 157 mm[Hg] [facility] Diastolic blood pressure 2024-05-24 13:51:42 93 mm[Hg] [facility] Heart rate 2024-05-24 13:51:42 98 /min [facility] Respiratory rate 2024-05-24 13:51:42 18 /min [facility] Oxygen saturation in Arterial blood by Pulse oximetry 2024-05-24 13:51:42 97 /min [facility] Body temperature 2024-05-24 13:36:00 36.78 Debbie [facility] Body height 2024-05-24 13:36:00 162.6 cm [facility] Body weight 2024-05-24 13:36:00 78.472 kg [facility] BMI 2024-05-24 13:36:00 29.70 kg/m2 [facility] Systolic blood pressure 2024-02-18 01:57:00 134 mm[Hg] [facility] Diastolic blood pressure 2024-02-18 01:57:00 94 mm[Hg] [facility] Body height 2024-02-18 01:57:00 162.6 cm [facility] Body weight 2024-02-18 01:57:00 79.379 kg [facility] BMI 2024-02-18 01:57:00 30.04 kg/m2 [facility] Heart rate 2024-02-18 01:53:00 110 /min [facility] Body temperature 2024-02-18 01:53:00 36.61 Debbie [facility] Respiratory rate 2024-02-18 01:53:00 24 /min [facility] Oxygen saturation in Arterial blood by Pulse oximetry 2024-02-18 01:53:00 93 /min [facility] Systolic blood pressure 2024-02-09 01:54:05 150 mm[Hg] [facility] Diastolic blood pressure 2024-02-09 01:54:05 91 mm[Hg] [facility] Heart rate 2024-02-09 01:54:05 87 /min [facility] Respiratory rate 2024-02-09 01:54:05 17 /min [facility] Oxygen saturation in Arterial blood by Pulse oximetry 2024-02-09 01:54:05 93 /min [facility] Body temperature 2024-02-09 01:45:00 36.67 Debbie [facility] Body height 2024-02-09 01:45:00 162.6 cm [facility] Body weight 2024-02-09 01:45:00 81.194 kg [facility] BMI 2024-02-09 01:45:00 30.73 kg/m2 [facility] Respiratory rate 2024-02-08 21:00:00 18 /min [facility] Oxygen saturation in Arterial blood by Pulse oximetry 2024-02-08 21:00:00 96 /min [facility] Systolic blood pressure 2024-02-08 20:27:00 164 mm[Hg] [facility] Diastolic blood pressure 2024-02-08 20:27:00 90 mm[Hg] [facility] Heart rate 2024-02-08 20:27:00 83 /min [facility] Body temperature 2024-02-08 19:12:00 36.83 Debbie [facility] Body height 2024-02-08 19:12:00 162.6 cm [facility] Body weight 2024-02-08 19:12:00 81.194 kg [facility] BMI 2024-02-08 19:12:00 30.73 kg/m2 [facility] Heart rate 2024-01-14 12:15:00 98 /min [facility] Body temperature 2024-01-14 12:15:00 36.56 Debbie [facility] Respiratory rate 2024-01-14 12:15:00 14 /min [facility] Oxygen saturation in Arterial blood by Pulse oximetry 2024-01-14 12:15:00 95 /min [facility] Systolic blood pressure 2024-01-14 12:00:00 140 mm[Hg] [facility] Diastolic blood pressure 2024-01-14 12:00:00 90 mm[Hg] [facility] Body height 2024-01-14 10:51:00 162.6 cm [facility] Body weight 2024-01-14 10:51:00 81.194 kg [facility] BMI 2024-01-14 10:51:00 30.73 kg/m2 [facility] Systolic blood pressure 2023-12-23 05:02:00 133 mm[Hg] [facility] Diastolic blood pressure 2023-12-23 05:02:00 84 mm[Hg] [facility] Heart rate 2023-12-23 05:02:00 78 /min [facility] Body temperature 2023-12-23 05:02:00 36.17 Debbie [facility] Respiratory rate 2023-12-23 05:02:00 17 /min [facility] Oxygen saturation in Arterial blood by Pulse oximetry 2023-12-23 05:02:00 91 /min [facility] Body height 2023-12-23 03:45:00 162.6 cm [facility] Body weight 2023-12-23 03:45:00 81.194 kg [facility] BMI 2023-12-23 03:45:00 30.73 kg/m2 [facility] Systolic blood pressure 2023-12-22 02:08:00 143 mm[Hg] [facility] Diastolic blood pressure 2023-12-22 02:08:00 92 mm[Hg] [facility] Heart rate 2023-12-22 02:08:00 81 /min [facility] Respiratory rate 2023-12-22 02:08:00 13 /min [facility] Oxygen saturation in Arterial blood by Pulse oximetry 2023-12-22 02:08:00 95 /min [facility] Body temperature 2023-12-22 01:33:00 36.72 Debbie [facility] Body height 2023-12-22 01:33:00 162.6 cm [facility] Body weight 2023-12-22 01:33:00 81.239 kg [facility] BMI 2023-12-22 01:33:00 30.74 kg/m2 [facility] Systolic blood pressure 2023-11-11 02:00:00 127 mm[Hg] [facility] Diastolic blood pressure 2023-11-11 02:00:00 87 mm[Hg] [facility] Heart rate 2023-11-11 02:00:00 79 /min [facility] Respiratory rate 2023-11-11 02:00:00 20 /min [facility] Oxygen saturation in Arterial blood by Pulse oximetry 2023-11-11 02:00:00 98 /min [facility] Body temperature 2023-11-11 01:31:00 36.28 Debbie [facility] Body height 2023-11-11 01:31:00 162.6 cm [facility] Body weight 2023-11-11 01:31:00 79.379 kg [facility] BMI 2023-11-11 01:31:00 30.04 kg/m2 [facility] Systolic blood pressure 2023-10-27 06:54:00 133 mm[Hg] [facility] Diastolic blood pressure 2023-10-27 06:54:00 94 mm[Hg] [facility] Heart rate 2023-10-27 06:54:00 95 /min [facility] Body temperature 2023-10-27 06:54:00 36.44 Debbie [facility] Respiratory rate 2023-10-27 06:54:00 22 /min [facility] Body height 2023-10-27 06:54:00 162.6 cm [facility] Body weight 2023-10-27 06:54:00 78.472 kg [facility] BMI 2023-10-27 06:54:00 29.70 kg/m2 [facility] Oxygen saturation in Arterial blood by Pulse oximetry 2023-10-27 06:54:00 94 /min [facility] Systolic blood pressure 2022-10-14 19:43:00 111 mm[Hg] [facility] Diastolic blood pressure 2022-10-14 19:43:00 74 mm[Hg] [facility] Heart rate 2022-10-14 19:43:00 98 /min [facility] Body temperature 2022-10-14 19:43:00 36.39 Debbie [facility] Respiratory rate 2022-10-14 19:43:00 22 /min [facility] Oxygen saturation in Arterial blood by Pulse oximetry 2022-10-14 19:43:00 94 /min [facility] Body height 2022-10-14 16:13:00 162.6 cm [facility] Body weight 2022-10-14 16:13:00 81.647 kg [facility] BMI 2022-10-14 16:13:00 30.90 kg/m2 [facility] Systolic blood pressure 2022-03-12 10:13:00 119 mm[Hg] [facility] Diastolic blood pressure 2022-03-12 10:13:00 75 mm[Hg] [facility] Heart rate 2022-03-12 10:13:00 105 /min [facility] Body temperature 2022-03-12 10:13:00 37.28 Debbie [facility] Respiratory rate 2022-03-12 10:13:00 19 /min [facility] Body height 2022-03-12 10:13:00 162.6 cm [facility] Body weight 2022-03-12 10:13:00 99.791 kg [facility] BMI 2022-03-12 10:13:00 37.76 kg/m2 [facility] Oxygen saturation in Arterial blood by Pulse oximetry 2022-03-12 10:13:00 96 /min [facility] Systolic blood pressure 2022-02-20 11:57:00 155 mm[Hg] [facility] Diastolic blood pressure 2022-02-20 11:57:00 88 mm[Hg] [facility] Heart rate 2022-02-20 11:57:00 105 /min [facility] Respiratory rate 2022-02-20 11:57:00 18 /min [facility] Oxygen saturation in Arterial blood by Pulse oximetry 2022-02-20 11:57:00 100 /min [facility] Body temperature 2022-02-20 09:25:00 37 Debbie [facility] Body height 2022-02-20 09:25:00 162.6 cm [facility] Body weight 2022-02-20 09:25:00 96.163 kg [facility] BMI 2022-02-20 09:25:00 36.39 kg/m2 [facility] Respiratory Rate 2024-05-26 13:39:00 16.00 /min Tunde Haro BP Systolic 2024-05-26 13:39:00 152 mm[Hg] Jose Haro BP Diastolic 2024-05-26 13:39:00 101 mm[Hg] Vince Haro Weight Measured 2024-05-26 13:39:00 179.00 pounds Tunde Haro Height Measured 2024-05-26 13:39:00 64.00 inches Tunde Haro Body Temperature 2024-05-26 13:39:00 97.80 degrees Tunde Haro Heart Rate 2024-05-26 13:39:00 110.00 /min Jose Haro Procedures Procedure Date / Time Performed Performing Clinician Source AC PANEL 20 + LACTIC ACID 2024-02-08 20:47:00 Christina Villarreal Sandrita [facility] XR CHEST 1 VW 2024-02-08 19:47:00 Christina Villarreal Sandrita [facility] URINALYSIS 2024-02-08 19:36:00 [facility] MAGNESIUM 2024-02-08 19:25:00 Christina Villarreal [facility] TROPONIN I 2024-02-08 19:25:00 Christina Villarreal [facility] COMP. METABOLIC PANEL ([id number]) 2024-02-08 19:25:00 Christina Villarreal [facility] ETHANOL 2024-02-08 19:25:00 [facility] CBC WITH DIFF 2024-02-08 19:25:00 Christina Villarreal Sandrita [facility] N-TERMINAL PRO-BNP 2024-02-08 19:25:00 Christina Villarreal [facility] EKG-12 LEAD 2024-01-14 12:00:51 Jac Navarro [facility] LIPASE 2024-01-14 11:11:00 Jac Navarro [facility] TROPONIN I 2024-01-14 11:11:00 Jac Navarro [facility] COMP. METABOLIC PANEL ([id number]) 2024-01-14 11:11:00 Jac Navarro [facility] ETHANOL 2024-01-14 11:11:00 Jac Navarro [facility] CBC WITH DIFF 2024-01-14 11:11:00 [facility] N-TERMINAL PRO-BNP 2024-01-14 11:11:00 Jac Navarro [facility] COVID-19 (ID NOW RAPID TESTING) 2024-01-14 11:11:00 Jac Navarro [facility] CONSENT/REFUSAL FOR DIAGNOSIS AND TREATMENT 2024-01-14 10:44:32 Doctor Unassigned, [place] [facility] LIPASE 2023-12-23 04:17:00 Cailin Rowe [facility] COMP. METABOLIC PANEL ([id number]) 2023-12-23 04:17:00 Cailin Rowe [facility] CBC WITH DIFF 2023-12-23 04:17:00 Cailin Rowe [facility] URINALYSIS 2023-12-23 04:17:00 Cailin Rowe [facility] CONSENT/REFUSAL FOR DIAGNOSIS AND TREATMENT 2023-12-23 03:40:32 Doctor Unassigned, [place] [facility] CT ABDOMEN PELVIS W CONTRAST 2023-12-22 02:31:05 Quentin Maciel [facility] LIPASE 2023-12-22 01:58:00 Quentin [facility] COMP. METABOLIC PANEL ([id number]) 2023-12-22 01:58:00 Quentin Maciel [facility] ETHANOL 2023-12-22 01:58:00 Quentin [facility] CBC WITH DIFF 2023-12-22 01:58:00 Qunetin Maciel [facility] PROTHROMBIN TIME / INR 2023-12-22 01:58:00 Wlai Maciel [facility] URINALYSIS 2023-12-22 01:58:00 [facility] CONSENT/REFUSAL FOR DIAGNOSIS AND TREATMENT 2023-12-22 01:19:14 Doctor Unassigned, [place] [facility] NOTICE OF PRIVACY PRACTICES 2023-11-11 01:24:24 Doctor Unassigned, [place] [facility] CONSENT/REFUSAL FOR DIAGNOSIS AND TREATMENT 2023-11-11 01:23:54 Doctor Unassigned, [place] [facility] COVID-19 (ID NOW RAPID TESTING) 2023-10-27 07:09:00 Jac Navarro [facility] NOTICE OF PRIVACY PRACTICES 2023-10-27 06:49:48 Doctor Unassigned, [place] [facility] CONSENT/REFUSAL FOR DIAGNOSIS AND TREATMENT 2023-10-27 06:47:40 Doctor Unassigned, [place] [facility] CT ABDOMEN PELVIS W CONTRAST 2022-10-14 17:33:00 Singer [facility] XR CHEST 1 2022-10-14 17:10:37 Singer [facility] TROPONIN I 2022-10-14 16:37:00 Quentin [facility] COMP. METABOLIC PANEL ([id number]) 2022-10-14 16:37:00 Singer [facility] CBC WITH DIFF 2022-10-14 16:37:00 Singer [facility] PROTHROMBIN TIME / INR 2022-10-14 16:37:00 Wali Maciel [facility] URINALYSIS 2022-10-14 16:37:00 Quentin [facility] N-TERMINAL PRO-BNP 2022-10-14 16:37:00 Singer [facility] CONSENT/REFUSAL FOR DIAGNOSIS AND TREATMENT 2022-10-14 15:56:36 Doctor Unassigned, [place] [facility] CONSENT/REFUSAL FOR DIAGNOSIS AND TREATMENT 2022-03-12 10:03:12 Doctor Unassigned, [place] [facility] XR CHEST 1 2022-02-20 09:59:00 Christy Holliday [facility] LIPASE 2022-02-20 09:30:00 Christy Holliday [facility] TROPONIN I 2022-02-20 09:30:00 Christy Holliday [facility] COMP. METABOLIC PANEL ([id number]) 2022-02-20 09:30:00 Christy Holliday [facility] CBC WITH DIFF 2022-02-20 09:30:00 [facility] 2022-02-20 09:30:00 Christy Holliday [facility] NOTICE OF PRIVACY PRACTICES 2022-02-20 09:15:02 Doctor Unassigned, [place] [facility] CONSENT/REFUSAL FOR DIAGNOSIS AND TREATMENT 2022-02-20 09:14:47 Doctor Unassigned, [place] [facility] Encounters Start Date/Time End Date/Time Encounter Type Admission Type Attending [facility] Care Department Encounter ID Source 2024-06-06 10:15:00 2024-06-06 10:15:00 Outpatient WENDY BROWNLEE [id number] Maria Elena Alcantara 2024-05-26 13:21:21 2024-05-26 13:21:21 Outpatient SFA [id number] [id number] Tunde Quiñonez Tahir 2024-05-26 00:00:00 2024-05-26 00:00:00 Outpatient Visit SFA [id number] Tunde Quiñonez Tahir 2024-05-24 08:36:00 2024-05-24 09:39:00 Emergency X MYRNA SANDHU [facility] ERT [id number] [facility] 2024-05-24 08:36:00 2024-05-24 09:39:00 Emergency Myrna Sandhu [facility] 1.2.840.114 350.1.13.10 4.2.7.2.[id number] [facility] 2024-04-14 16:30:00 2024-04-14 16:30:00 Outpatient DARIEN LOBO [id number] Maria Elena Alcantara 2024-04-12 11:00:00 2024-04-12 11:00:00 Outpatient MINNA ORTA [facility] [id number] [facility]12 11:00:00 2024-04-12 11:00:00 Outpatient KEM WENDY [facility] [id number] [facility]24-04-12 00:00:00 2024-04-12 00:00:00 Outpatient SHARATH HALEY [facility] [id number] [facility] 2024-04-05 11:30:00 2024-04-05 11:30:00 Outpatient ROYADARIEN Olson [facility] [id number] Maria Elena [facility] 2024-04-05 00:00:00 2024-04-05 00:00:00 Outpatient ALFREDONIURKADARIEN Olson [facility] [id number] [facility] 2024-03-28 00:00:00 2024-03-28 00:00:00 Outpatient DARIEN LOBO [facility] [id number] [facility] 2024-03-15 08:30:00 2024-03-15 08:30:00 Outpatient KEMWENDY [facility] [id number] [facility] 2024-02-17 20:58:00 2024-02-17 21:44:00 Emergency X YARY CAMP [facility] ERT [id number] [facility] 2024-02-17 20:58:00 2024-02-17 21:44:00 Emergency Yary Camp [facility] 1.2.840.114 350.1.13.10 4.2.7.2.[id number] [facility] 2024-02-08 20:38:00 2024-02-08 21:40:00 Emergency X ROSAASHWIN KEISHA [facility] ERT [id number] [facility] 2024-02-08 20:38:00 2024-02-08 21:40:00 Emergency Keisha Davenport [facility] 1.2.840.114 350.1.13.10 4.2.7.2.[id number] [facility] 2024-02-08 14:08:00 2024-02-08 17:06:00 Emergency Christina Villarreal [facility] 1.2.840.114 350.1.13.10 4.2.7.2.[id number] [facility] 2024-01-14 04:46:00 2024-01-14 06:23:00 Emergency X TERESSAJAC [facility] ERT [id number] [facility] 2024-01-14 04:46:00 2024-01-14 06:23:00 Emergency GracielaJac marlow [facility] 1.2.840.114 350.1.13.10 4.2.7.2.[id number] [facility] 2023-12-22 21:51:00 2023-12-22 23:13:00 Emergency X CAILIN ROWE [facility] ERT [id number] [facility] 2023-12-22 21:51:00 2023-12-22 23:13:00 Emergency Cailin Rowe [facility] 1.2.840.114 350.1.13.10 4.2.7.2.[id number] [facility] 2023-12-21 19:36:00 2023-12-21 21:52:00 Emergency X QUENTIN [facility] ERT [id number] [facility] 2023-12-21 19:36:00 2023-12-21 21:52:00 Emergency Quentin Maciel [facility] 1.2.840.114 350.1.13.10 4.2.7.2.[id number] [facility] 2023-11-10 19:29:00 2023-11-10 20:14:00 Emergency X CHRISTY HOLLIDAY [facility] ERT [id number] [facility] 2023-11-10 19:29:00 2023-11-10 20:14:00 Emergency Christy Holliday [facility] 1.2.840.114 350.1.13.10 4.2.7.2.[id number] [facility] 2023-10-27 00:49:00 2023-10-27 01:41:00 Emergency X JAC NAVARRO [facility] ERT [id number] [facility] 2023-10-27 00:49:00 2023-10-27 01:41:00 Emergency Jac Navarro [facility] 1.2.840.114 350.1.13.10 4.2.7.2.[id number] [facility] 2023-07-15 00:00:00 2023-07-15 00:00:00 Outpatient DARIEN LOBO [id number] [facility] 2023-06-16 11:30:00 2023-06-16 11:30:00 Outpatient DARIEN LOBO [id number] Maria Elena [facility] 2023-05-18 00:00:00 2023-05-18 00:00:00 Outpatient MARIA ELENA CHAN [id number] [facility] 2022-10-14 10:07:00 2022-10-14 14:39:00 Emergency QUENTIN ROUSE [facility] ERT [id number] [facility] 2022-10-14 10:07:00 2022-10-14 14:39:00 Emergency Quentin Maciel [facility] 1.2.840.114 350.1.13.10 4.2.7.2.[id number] [facility] 2022-03-12 05:15:00 2022-03-12 06:41:00 Emergency X CHRISTY HOLLIDAY [facility] ERT [id number] [facility] 2022-03-12 05:15:00 2022-03-12 06:41:00 Emergency Christy Holliday [facility] 1.2.840.114 350.1.13.10 4.2.7.2.[id number] [facility] 2022-02-20 04:17:00 2022-02-20 07:16:00 Emergency X CHRISTY HOLLIDAY [facility] ERT [id number] [facility] 2022-02-20 04:17:00 2022-02-20 07:16:00 Emergency Christy Holliday [facility] 1.2.840.114 350.1.13.10 4.2.7.2.[id number] [facility] 2021-02-03 11:10:00 2021-02-03 11:10:00 Outpatient R DENISE SUNG [facility] [id number] [facility] 2021-01-13 11:20:00 2021-01-13 11:20:00 Outpatient [facility] [id number] [facility] 2020-11-10 08:20:00 2020-11-10 08:20:00 Outpatient KARLEY ESTRADA [facility] [id number] [facility] Results Test Description Test Time Test Comments Results Result Co mments Source Tundegregory aHroHEMOGLOBIN [id number] 00:00:00* Test Item Value Reference Range Interpretation Comme nts HEMOGLOBIN A1c (test code = 40433) 5.5 % Tunde HaroLIPID [id number] 00:00:00* Test Item Value Reference Range Interpretation Comme nts CHOLESTEROL (test code = 2210) 234 MG/DL TRIGLYCERIDES (test code = 2232) 176 MG/DL HDL CHOLESTEROL (test code = 2220) 80 MG/DL CALC LDL CHOL (test code = 2237) 125 MG/DL RISK RATIO LDL/HDL (test cod e = 2238) 1.56 RATIO Tunde HaroCBC W/AUTO [id number] 00:00:00* Test Item Value Reference Range Interpretation Comme nts WBC (test code = 1001) 14.4 K/UL RBC (test code = 1002) 4.02 M/UL HEMOGLOBIN (test code = 1003) 13.1 G/DL HEMATOCRIT (test code = 1004) 39.5 % MCV (test code = 1005) 98.3 fL MCH (test code = 1006) 32.6 PG MCHC (test code = 1007) 33.2 G/DL RDW (test code = 1038) 14.7 % NEUTROPHILS (test code = 1008) 78.8 % LYMPHOCYTES (test code = 1010) 13.6 % MONOCYTES (test code = 1011) 4.6 % EOSINOPHILS (test code = 1012) 0.3 % BASOPHILS (test code = 1013) 0.8 % IMMATURE GRANULOCYTES (test code = 1036) 1.9 % NUCLEATED RBCS (test code = 1065) 0.0 /100WBC'S PLATELET COUNT (test code = 1015) 426 K/UL ABSOLUTE NEUTROPHILS (test c ode = 1066) 11.31 K/UL ABSOLUTE LYMPHOCYTES (test c ode = 1067) 1.96 K/UL ABSOLUTE MONOCYTES (test cod e = 1068) 0.66 K/UL ABSOLUTE EOSINOPHILS (test c ode = 1040) 0.04 K/UL ABSOLUTE BASOPHILS (test cod e = 1069) 0.11 K/UL ABS IMMATURE GRANULOCYTES (t est code = 1020) 0.28 K/UL ABS NUCLEATED RBCS (test cod e = 19390) 0.00 K/UL Tunde [id number] 21:47:04* Test Item Value Reference Range Interpretation Comme nts ALCOHOL (test code = 9897043796) 329 mg/dL LOUISE (test code = LOUISE) <10 [id number] Toxic>100 Depression of IMMIGRATION CASE MANAGER>400 [facility] + Lactic [id number] 20:52:47* Test Item Value Reference Range Interpretation Comme nts PH (test code = 2) 7.39 7.35-7.45 PCO2 (test code = 5248594891) 42 35-45 PO2 (test code = 8899776729) 76 80-100 L HCO3 (test code = 4791120946) 25 22-26 BE (test code = 1733843846) -0.1 -3.0-3.0 THB (test code = 1051149638) 14.3 g/dL 13.5-18.0 %O2HB (test code = 5610060143) 85.8 % 94.0-99.0 L %COHB ART (test code = 9784418773) 9.0 % 0.0-1.5 H %METHB ART (test code = 1711898679) 0.3 % 0.4-1.5 L VOL%O2 ART (test code = 3245656980) 17.3 % 15.0-23.0 NA (test code = 5789994244) 140 mmol/L 135-145 K+ (test code = 5625544638) 4.1 mmol/L 3.5-5.0 AC CA IONZ (test code = 4698254418) 4.50 mg/dL 4.50-5.30 GLUCOSE (test code = 0963087254) 105 mg/dL 70-110 LACTIC ACID (test code = 7296878309) 2.60 mmol/L 0.50-2.20 H Lab Interpretation (test cod e = 74896-0) [id number] 20:34:14* Test Item Value Reference Range Interpretation Comme nts TROPONIN I (test code = 2170518634) 0.008 ng/mL <=0.034 LOUISE (test code = [...] of biotin. Lab Interpretation (test code = 38111-5) Normal [facility] [id number] 20:31:35* Test Item Value Reference Range Interpretation Comme nts NT-proBNP (test code = 75656-7) 188 pg/mL <=125 LOUISE (test code = LOUISE) Result Indeterminate-Consid er causes of NT-proBNP elevation other than Heart failure such as acute coronary syndrome, pulmonary embolism, pulmonary hypertension, sepsis, stroke, and renal dysfunction. Lab Interpretation (test code = 22457-1) [facility]normal [facility] (26601)2024-02-08 20:21:10* Test Item Value Reference Range Interpretation Comme nts NA (test code = 4943716493) 135 mmol/L 135-145 K (test code = 9137931752) 4.5 mmol/L 3.5-5.0 CL (test code = 1509255577) 100 mmol/L 98-108 CO2 TOTAL (test code = 5489793894) 22 mmol/L 23-31 L AGAP (test code = 3671551682) 13 2-16 BUN (test code = 0506829476) 8 mg/dL 7-23 GLUCOSE (test code = 8668872525) 97 mg/dL 70-110 CREATININE (test code = 2160-0) 0.65 mg/dL 0.60-1.25 TOTAL BILI (test code = 4073687315) 0.4 mg/dL 0.1-1.1 CALCIUM (test code = 9519963542) 9.4 mg/dL 8.6-10.6 T PROTEIN (test code = 5809527080) 8.2 g/dL 6.3-8.2 ALBUMIN (test code = 3243264523) 4.7 g/dL 3.5-5.0 ALK PHOS (test code = 3676234688) 76 U/L 34-122 ALTv (test code = 1742-6) 33 U/L 5-50 AST(SGOT) (test code = 4616109538) 54 U/L 13-40 H eGFR (test code = 61297-9) 111.3 mL/min/1.73m2 CKD-EPI eGFR (2020). Assuming creatinine has been stable day-to-day for at least three months, the eGFR indicates Category G1 (>= 90 mL/min/1.73 m2) Lab Interpretation (test code = 51999-8) [facility]normal [facility] 20:21:10* Test Item Value Reference Range Interpretation Comme nts MAGNESIUM (test code = 1527900011) 2.1 mg/dL 1.7-2.4 Lab Interpretation (test cod e = 26526-0) Normal [facility] [id number] 20:07:21EXAM: XR CHEST 1 VW COMPARISON: 01/14/2024 HISTORY: sob FINDINGS: Lungs: Slightly hyperexpanded lungswith subtle progression of interstitialprominence. Trace pleural effusions could be present. Heart/Mediastinum: Stable cardiomegaly. Bones and soft tissues: No osseous abnormality is visualized.[facility] Cbc with [id number] 20:04:26* Test Item Value Reference Range Interpretation [...] 33.8 g/dL 31.2-35.0 RDW-SD (test code = 09216-3) 50.5 fL 38.5-51.6 RDW-CV (test code = 788-0) 14.3 % 12.1-15.4 PLT (test code = 777-3) 206 150-328 MPV (test code = 24239-3) 9.1 fL 9.8-13.0 L NRBC/100 WBC (test code = 7209991609) 0.0 0.0-10.0 NRBC x10^3 (test code = 4118045430) See_Comment [Automated messa ge] The system which generated this result transmitted reference range: 10*3/?L. The reference range was not used to interpret this result as normal/abnormal. GRAN MAT (NEUT) % (test code = 770-8) 81.0 % IMM GRAN % (test code = 1596656424) 1.20 % LYMPH % (test code = 736-9) 10.9 % MONO % (test code = 5905-5) 6.8 % EOS % (test code = 713-8) 0.0 % BASO % (test code = 706-2) 0.1 % GRAN MAT x10^3(ANC) (test code = 5438206934) 9.31 10*3/uL 1.99-6.95 H IMM GRAN x10^3 (test code = 5237336806) 0.14 10*3/uL 0.00-0.06 H LYMPH x10^3 (test code = 731-0) 1.25 10*3/uL 1.09-3.23 MONO x10^3 (test code = 742-7) 0.78 10*3/uL 0.36-1.02 EOS x10^3 (test code = 711-2) 0.06-0.53 L BASO x10^3 (test code = 704-7) 0.01-0.09 Lab Interpretation (test code = 26956-0) Abnormal [facility]. METABOLIC PANEL (78299)2023-12-23 04:53:26* Test Item Value Reference Range Interpretation Comme nts NA (test code = 3144890982) 135 mmol/L 135-145 K (test code = 5447469178) 3.2 mmol/L 3.5-5.0 L CL (test code = 5945247369) 104 mmol/L 98-108 CO2 TOTAL (test code = 8011045562) 23 mmol/L 23-31 AGAP (test code = 8984606940) 8 2-16 BUN (test code = 3261712634) 11 mg/dL 7-23 GLUCOSE (test code = 9736908481) 82 mg/dL 70-110 CREATININE (test code = 2160-0) 0.64 mg/dL 0.60-1.25 TOTAL BILI (test code = 3405499880) 0.5 mg/dL 0.1-1.1 CALCIUM (test code = 5105397707) 8.8 mg/dL 8.6-10.6 T PROTEIN (test code = 6222512138) 6.7 g/dL 6.3-8.2 ALBUMIN (test code = 4912397381) 4.1 g/dL 3.5-5.0 ALK PHOS (test code = 1800781051) 46 U/L 34-122 ALTv (test code = 1742-6) 21 U/L 5-50 AST(SGOT) (test code = 8336620828) 43 U/L 13-40 H eGFR (test code = 93332-5) 111.8 mL/min/1.73m2 CKD-EPI eGFR (2020). Assuming creatinine has been stable day-to-day for at least three months, the eGFR indicates Category G1 (>= 90 mL/min/1.73 m2) Lab Interpretation (test code = 23707-5) [facility] 04[facility]53:26* Test Item Value Reference Range Interpretation Comme nts LIPASE (test code = 5224393563) 105 U/L 0-220 Lab Interpretation (test cod e = 15947-1) [facility] WITH [id number] 04:34:24* Test Item Value Reference Range Interpretation [...] 33.0 g/dL 31.2-35.0 RDW-SD (test code = 66600-1) 50.9 fL 38.5-51.6 RDW-CV (test code = 788-0) 13.7 % 12.1-15.4 PLT (test code = 777-3) 232 150-328 MPV (test code = 28798-3) 8.7 fL 9.8-13.0 L NRBC/100 WBC (test code = 2974793547) 0.0 0.0-10.0 NRBC x10^3 (test code = 6571079634) See_Comment [Automated Appographya ge] The system which generated this result transmitted reference range: 10*3/?L. The reference range was not used to interpret this result as normal/abnormal. GRAN MAT (NEUT) % (test code = 770-8) 58.8 % IMM GRAN % (test code = 8823163092) 0.90 % LYMPH % (test code = 736-9) 27.8 % MONO % (test code = 5905-5) 10.5 % EOS % (test code = 713-8) 1.3 % BASO % (test code = 706-2) 0.7 % GRAN MAT x10^3(ANC) (test code = 9306277229) 5.68 10*3/uL 1.99-6.95 IMM GRAN x10^3 (test code = 0311341196) 0.09 10*3/uL 0.00-0.06 H LYMPH x10^3 (test code = 731-0) 2.69 10*3/uL 1.09-3.23 MONO x10^3 (test code = 742-7) 1.02 10*3/uL 0.36-1.02 EOS x10^3 (test code = 711-2) 0.13 10*3/uL 0.06-0.53 BASO x10^3 (test code = 704-7) 0.07 10*3/uL 0.01-0.09 Lab Interpretation (test code = 79862-2) [facility] ABD[facility] PEL[facility] W [id number] 03:32:43Exam: CT Abdomen and Pelvis With Contrast, 12/21/2023 7:45 PM. Ordering Physician: QUENTIN MACIEL. History: Diverticulitis, complication suspected . Comparison: [...] abnormality.Soft tissues: Small fat-containing inguinal hernias.[facility] TylerEthanol2024-02-13 02:32:24* Test Item Value Reference Range Interpretation Comme nts ALCOHOL (test code = 6759507087) 117 mg/dL LOUISE (test code = LOUISE) <10 Kofwfoff02-331 Toxic>100 Depression of IMMIGRATION CASE MANAGER>400 Fatalities [facility]orted [facility] TylerComp. Metabolic Panel (52723)2023-12-22 02:31:43* Test Item Value Reference Range Interpretation Comme nts NA (test code = 4479149572) 133 mmol/L 135-145 L K (test code = 0722722576) 3.3 mmol/L 3.5-5.0 L CL (test code = 8237864079) 102 mmol/L 98-108 CO2 TOTAL (test code = 5493145407) 25 mmol/L 23-31 AGAP (test code = 4665231571) 6 2-16 BUN (test code = 2491051550) 11 mg/dL 7-23 GLUCOSE (test code = 7108237165) 75 mg/dL 70-110 CREATININE (test code = 1217045021) 0.51 mg/dL 0.60-1.25 L TOTAL BILI (test code = 8640353924) 0.5 mg/dL 0.1-1.1 CALCIUM (test code = 7287935177) 8.9 mg/dL 8.6-10.6 T PROTEIN (test code = 0946950791) 7.2 g/dL 6.3-8.2 ALBUMIN (test code = 0066035942) 4.5 g/dL 3.5-5.0 ALK PHOS (test code = 8924551291) 46 U/L 34-122 ALTv (test code = 1742-6) 15 U/L 5-50 AST(SGOT) (test code = 5801015929) 24 U/L 13-40 eGFR (test code = 28140-3) 119.7 mL/min/1.73m2 CKD-EPI eGFR (2020). Assuming creatinine has been stable day-to-day for at least three months, the eGFR indicates Category G1 (>= 90 mL/min/1.73 m2) Lab Interpretation (test code = 84866-3) [facility] TylerLipase2024-[facility] 02:31:43* Test Item Value Reference Range Interpretation Comme nts LIPASE (test code = 0059881812) 121 U/L 0-220 Lab Interpretation (test cod e = 39411-8) Normal [facility] TylerProthrombin Time / [id number] 02:21:02* Test Item Value Reference Range Interpretation Comme nts PROTIME PATIENT (test code = 5964-2) 10.5 10.1-12.6 INR (test code = 6301-6) 0.9 Normal INR <1.1; Warfarin Therapeutic range 2.0 to 3.0 or 2.5 to 3.5, depending upon the indications. Lab Interpretation (test code = 19718-8) [facility] TylerCbc with Mvap3504-53-26 02:14:04* Test Item Value Reference Range Interpretation [...] 34.0 g/dL 31.2-35.0 RDW-SD (test code = 04571-2) 49.1 fL 38.5-51.6 RDW-CV (test code = 788-0) 13.5 % 12.1-15.4 PLT (test code = 777-3) 260 150-328 MPV (test code = 22972-5) 8.7 fL 9.8-13.0 L NRBC/100 WBC (test code = 0974331552) 0.0 0.0-10.0 NRBC x10^3 (test code = 9464076937) See_Comment [Automated messa ge] The system which generated this result transmitted reference range: 10*3/?L. The reference range was not used to interpret this result as normal/abnormal. GRAN MAT (NEUT) % (test code = 770-8) 64.3 % IMM GRAN % (test code = 0810801461) 0.90 % LYMPH % (test code = 736-9) 24.2 % MONO % (test code = 5905-5) 9.1 % EOS % (test code = 713-8) 0.7 % BASO % (test code = 706-2) 0.8 % GRAN MAT x10^3(ANC) (test code = 5879559010) 8.73 10*3/uL 1.99-6.95 H IMM GRAN x10^3 (test code = 5662378395) 0.12 10*3/uL 0.00-0.06 H LYMPH x10^3 (test code = 731-0) 3.28 10*3/uL 1.09-3.23 H MONO x10^3 (test code = 742-7) 1.23 10*3/uL 0.36-1.02 H EOS x10^3 (test code = 711-2) 0.10 10*3/uL 0.06-0.53 BASO x10^3 (test code = 704-7) 0.11 10*3/uL 0.01-0.09 H Lab Interpretation (test code = 29613-5) [facility]normal [facility] TylerJUANJOSE [id number] 10:16:22* Test Item Value Reference Range Interpretation Comments TROPONIN I (test code = 3821921814) 0.007 ng/mL See_Comment [Automated message] The system [...] of biotin. Lab Interpretation (test code = 99793-7) Normal [facility] TylerN-TERMINAL EZJ-APM6495-25-14 10:13:01* Test Item Value Reference Range Interpretation Comme nts NT-proBNP (test code = 1086659566) 52 pg/mL See_Comment [Automated message] The system which generated this result transmitted reference range: <=125. The reference range was not used to interpret this result as normal/abnormal. LOUISE (test code = LOUISE) Biotin has been reported to cause a negative bias, interpret results relative to patient's use of biotin. Lab Interpretation (test code = 55141-4) [facility] TylerCOMP. METABOLIC PANEL (80891)2022-02-20 10:04:02* Test Item Value Reference Range Interpretation Comme nts NA (test code = 9657455026) 137 mmol/L 135-145 K (test code = 5393697480) 3.6 mmol/L 3.5-5.0 CL (test code = 4270313645) 99 mmol/L 98-108 CO2 TOTAL (test code = 8873850061) 25 mmol/L 23-31 AGAP (test code = 1518497331) 2-16 BUN (test code = 9422506508) 6 mg/dL 7-23 L GLUCOSE (test code = 1778933217) 88 mg/dL 70-110 CREATININE (test code = 2220447579) 0.55 mg/dL 0.60-1.25 L TOTAL BILI (test code = 1284546866) 0.8 mg/dL 0.1-1.1 CALCIUM (test code = 9636383381) 8.9 mg/dL 8.6-10.6 T PROTEIN (test code = 6657170559) 7.5 g/dL 6.3-8.2 ALBUMIN (test code = 1560751805) 4.8 g/dL 3.5-5.0 ALK PHOS (test code = 1141897135) 113 U/L 34-122 ALTv (test code = 1742-6) 84 U/L 5-50 H AST(SGOT) (test code = 9916634214) 107 U/L 13-40 H eGFR (test code = 4443915258) mL/min/1.73m2 LOUISE (test code = LOUISE) Association [...] imaging tests). Lab Interpretation (test code = 95935-6) [facility] TylerLIPASE, [id number] 10:03:21* Test Item Value Reference Range Interpretation Comme nts LIPASE (test code = 1904196319) 193 U/L 0-220 Lab Interpretation (test cod e = 52318-9) [facility] WITH [id number] 09:39:17* Test Item Value Reference Range Interpretation [...] g/dL 31.2-35.0 H RDW-SD (test code = 47346-3) 44.4 fL 38.5-51.6 RDW-CV (test code = 788-0) 11.9 % 12.1-15.4 L PLT (test code = 777-3) See_Comment [Automated messa ge] The system which generated this result transmitted reference range: 150 - 328 10*3/?L. The reference range was not used to interpret this result as normal/abnormal. MPV (test code = 34472-6) 9.2 fL 9.8-13.0 L NRBC/100 WBC (test code = 0002526187) See_Comment [Automated myJambi ssage] The system which generated this result transmitted reference range: 0.0 - 10.0 /100 WBCs. The reference range was not used to interpret this result as normal/abnormal. NRBC x10^3 (test code = 5835205662) <0.01 See_Comment [Automated messa ge] The system which generated this result transmitted reference range: 10*3/?L. The reference range was not used to interpret this result as normal/abnormal. GRAN MAT (NEUT) % (test code = 770-8) 69.9 % IMM GRAN % (test code = 4052250840) 1.50 % LYMPH % (test code = 736-9) 18.9 % MONO % (test code = 5905-5) 7.0 % EOS % (test code = 713-8) 1.9 % BASO % (test code = 706-2) 0.8 % GRAN MAT x10^3(ANC) (test code = 5836178458) 7.15 10*3/uL 1.99-6.95 H IMM GRAN x10^3 (test code = 2710388461) 0.15 10*3/uL 0.00-0.06 H LYMPH x10^3 (test code = 731-0) 1.93 10*3/uL 1.09-3.23 MONO x10^3 (test code = 742-7) 0.72 10*3/uL 0.36-1.02 EOS x10^3 (test code = 711-2) 0.19 10*3/uL 0.06-0.53 BASO x10^3 (test code = 704-7) 0.08 10*3/uL 0.01-0.09 Lab Interpretation (test code = 80566-1) Abnormal [facility] Notes Date/Time Note Provider Source Tunde Murcia [facility]2024-07-16 08:34:34 Patient here for a mass on his forehead, states it has been there for year and patient attempted to open it with a needle. [facility] Ntyerm7181-04-86 21:43:52 No answer in lobby. Angy [facility]40[facility] 21:42:10 Pt's blood pressure cuff and pulse ox found lying on chair. Called for patient in lobby 2 times, no answer. No one in lobby. Sierra Samaniego [place] 607554-04-10 21:41:09 Pt not in lobby or in room. No answer in lobby. [place] 725294-04-10 21:14:29 Pt not in - and no answer in [facility]. [place] 646854-04-10 20:48:50 Pt arrives ambulatory to ED c/o SOB, right upper abdominal pain, and left leg and hip pain. Pt states that he has been on prednisone for about 5 yrs which had given him osteoporosis which is causing his leg pain. Reports hx of COPD, o2 is generally @ 91 he says. Leah Lizama [facility] HospitalAuzjlx4924-79-88 21:37:56 Pt left AMA Kylie Foster [facility] HospitalRnqqyw7519-55-42 21:32:00 Patient leaving AMA after self removing his IV and bleeding all over the floor. Pt unhappy with toradol order. discussed risks of leaving against medical advice/final dispositon, Dr. Davenport aware and notified of patient's decision. Patient encouraged to seek medical attention for any new/prolonged/worsening of symptoms and stressed importance of follow up with a medical provider as soon as possible. AMA form explained, patient signed form. Patient leaving ambulatory with steady gait, appears in NAD [facility]2024-04-01 20:54:38 Pt states he uses O2 at home, portable O2 is broken [place] 646854-04-01 20:51:11 Pt ambulates with cane [facility]2024-04-01 20:43:13 CC: Pt arrives SOB after leaving AM earlier in the shift. He reports he is here for "I have osteoporosis in my left hip since 2008 caused by my prednisone. I'm on it the rest of my life. The pain is so bad that I take 8-10 BC powders and alcohol to manage." PMHx: see chart Awake, alert, oriented, resp reg labored, skin warm, color zane for race, moves all ext without difficulty, amb with steady gait "Before I got here I ate 3 BC powders and drank 3 beers." T Leah King [facility] HospitalUdhhki6549-26-49 17:04:05 Patient walked to the nurses station and stated "I have another emergency and I have to leave right now. I need this IV taken out immediately." Encouraged patient to stay and he stated "I have to leave immediately and I don't want to take this out myself" IV d/c at this time and patient ambulated out of the department with a steady gait. Allison Zhang [facility] HospitalQtvvcm0790-29-53 14:23:02 Pt ambulates with a cane Kylie Foster [facility] HospitalWwoqco5538-18-43 14:13:15 Pt has taken 8-packets of BC powder. [...] only thing that helps." Face is flushed. Hali Aviles [facility] HospitalJpivci4693-41-74 06:16:25 Pt given printed and verbal discharge instructions regarding CP/bronchitis, encouraged hydration, Prescriptions provided Discussed ibuprofen and to take with food to avoid GI distress, alternate with Tylenol to help with pain and/or fever Discussed antibiotic/steroid therapy and to take until all completed unless adverse reaction occurs - if occurs, discontinue medication and follow up with pcp/seek medical attention Discussed tylenol #3 side affects and to avoid driving/operating machinery/or engaging in activities requiring alertness while taking. Pt verbalized understanding of instructions,pt encouraged to follow up with pcp and or cake maker Advised to seek medical attention for new/prolonged/worsening of symptoms, No adverse reaction to meds given in ER noted upon discharge PIV d'cd, dressing to site, catheter in tact. Awake, alert oriented, resp reg unlabored, skin w/d, pt leaving in no apparent distress, [facility]2024-03-07 04:49:43 CC: "My COPD is acting up real bad since yesterday and making my (left) chest hurt." Pt reports symptoms started at 1630 yesterday. Pt states he took a Nitro SL this morning without relief. 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, takes 6 per day for osteoporosis. PMHx: see chart Awake, alert, oriented, resp reg unlabored, skin warm, color appropriate for race, moves all ext without difficulty, amb with steady gait ON King [facility] - Sejjkq4729-63-68 04:43:00 Associated Order(s): EKG-12 Lead ROUTINE ONCE Pre-Procedure Diagnose(s): Chest pain, unspecified type Post-Procedure Diagnose(s): Chest pain, unspecified type [facility] Emergency Department Note Patient Name: Randy Briones Date of : 1970 53 year old male Treatment Room: OR1/OR1 Primary Care Physician: Adrianna Michaels Patient Escorted by: Family [5] Mode of Arrival: Personal means [1] EMS Treatment Prior to ED Arrival: [employer] treatment: NTG [employer]ER treatment comments: 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 male with COPD, now with left sided chest pain since yesterday, worse this a.m., prompting ED visit. Patient also reports SOB and worsening of his copd. Denies fever/chills. Past Medical History/Immunizations: Past Medical History: Diagnosis Date Alcohol abuse Alcohol withdrawal COPD (chronic obstructive pulmonary disease) Hypertension Tobacco abuse Tetanus received in last 5 years: No Allergies: Allergies Allergen Reactions Lisinopril Anaphylaxis Past Social History: Tobacco Use Every Day Smokeless Tobacco: Current user of smokeless tobacco. Comments: trying to quit Alcohol Use Yes; 30.0 standard drinks of alcohol per week; 30 Cans of beer. Drug Use No. Past Surgical History: No past surgical history on file. Review of Systems: Review of Systems Constitutional: Positive for fatigue. Negative for chills and fever. HENT: Negative. Eyes: Negative. Respiratory: Positive for cough, shortness of breath and wheezing. Cardiovascular: Positive for chest pain. Negative for palpitations and leg swelling. Gastrointestinal: Negative. Genitourinary: Negative. Musculoskeletal: Negative. Skin: Negative. Neurological: Negative. Psychiatric/Behavioral: Negative. Endocrine: Endocrine negative Physical Exam: ED Triage Vitals Weight 01/14/24450 81.2 kg (179 lb) Actual or estimated 01/14/24450 Estimated by patient/family report Height 01/14/24450 1.626 m (5' 4") BP 01/14/24450 (!) 154/96 Pulse 01/14/24450 102 Resp 01/14/24450 20 Temp 01/14/24450 36.8 ?C (98.2 ?F) Temp source 01/14/24450 Oral SpO2 01/14/24454 91 % Measured on 01/14/24450 Room air Physical Exam Vitals and nursing note reviewed. Constitutional: General: He is not in acute distress. Appearance: Normal appearance. He is not ill-appearing, toxic-appearing or diaphoretic. HENT: Head: Normocephalic. Mouth/Throat: Mouth: Mucous membranes are moist. Eyes: Pupils: Pupils are equal, round, and reactive to light. Cardiovascular: Rate and Rhythm: Normal rate. Pulses: Normal pulses. Heart sounds: Normal heart sounds. Pulmonary: Effort: No respiratory distress. Breath sounds: No stridor. Wheezing present. No rhonchi or rales. Comments: Good air movement bilaterally Chest: Chest wall: No tenderness. Abdominal: Palpations: Abdomen is soft. Musculoskeletal: General: Normal range of motion. Skin: General: Skin is warm. Capillary Refill: Capillary refill takes less than 2 seconds. Neurological: General: No focal deficit present. Mental Status: He is alert and oriented to person, place, and time. Psychiatric: Mood and Affect: Mood normal. Behavior: Behavior normal. Radiology: XR CHEST 1 VW Preliminary Result PROCEDURE: XR CHEST 1 VW CLINICAL INDICATION: chest pain COMPARISON: Chest radiograph dated 10/27/2023 FINDINGS: No focal consolidation is identified. Linear parenchymal band is seen at the left lung base. No pleural effusion or pneumothorax is seen. The heart is normal in size. No acute bony abnormality. IMPRESSION No acute intrathoracic abnormality. Preliminary Report Dictated by Resident: Max Velazco Lab Results: Lab Results COMP. METABOLIC PANEL (24896) - Abnormal Result Value Ref Range NA 138 135 - 145 mmol/L K 3.9 3.5 - 5.0 mmol/L CL 101 98 - 108 mmol/L CO2 TOTAL 29 23 - 31 mmol/L AGAP 8 2 - 16 BUN 16 7 - 23 mg/dL GLUCOSE 92 70 - 110 mg/dL CREATININE 0.96 0.60 - 1.25 mg/dL TOTAL BILI 0.7 0.1 - 1.1 mg/dL CALCIUM 9.0 8.6 - 10.6 mg/dL T PROTEIN 8.0 6.3 - 8.2 g/dL ALBUMIN 4.5 3.5 - 5.0 g/dL ALK PHOS 60 34 - 122 U/L ALTv 27 5 - 50 U/L AST(SGOT) 49 (*) 13 - 40 U/L eGFR 93.3 mL/min/1.73m2 CBC WITH DIFF - Abnormal WBC 11.59 (*) 4.20 - 10.70 10*3/?L RBC 4.47 4.26 - 5.52 10*6/?L HGB 15.2 12.2 - 16.4 g/dL HCT 44.9 38.4 - 49.3 % MCV 100.4 (*) 81.7 - 95.6 fL MCH 34.0 (*) 26.1 - 32.7 pg MCHC 33.9 31.2 - 35.0 g/dL RDW-SD 54.1 (*) 38.5 - 51.6 fL RDW-CV 14.6 12.1 - 15.4 % PLT 257 150 - 328 10*3/?L MPV 9.0 (*) 9.8 - 13.0 fL NRBC/100 WBC 0.0 0.0 - 10.0 /100 WBCs NRBC x103<0.01 10*3/?L GRAN MAT (NEUT) % 61.8 % IMM GRAN % 0.90 % LYMPH % 25.4 % MONO % 8.3 % EOS % 2.7 % BASO % 0.9 % GRAN MAT x103(ANC) 7.17 (*) 1.99 - 6.95 10*3/uL IMM GRAN x1030.11 (*) 0.00 - 0.06 10*3/uL LYMPH x1032.94 1.09 - 3.23 10*3/uL MONO x1030.96 0.36 - 1.02 10*3/uL EOS x1030.31 0.06 - 0.53 10*3/uL BASO x1030.10 (*) 0.01 - 0.09 10*3/uL N-TERMINAL PRO-BNP - Abnormal NT-proBNP 188 <=125 pg/mL TROPONIN I - Normal TROPONIN I 0.009 <=0.034 ng/mL LIPASE - Normal LIPASE 85 0 - 220 U/L COVID-19 (ID NOW RAPID TESTING) - Normal SARS-CoV-2 Rapid ID NOW Not Detected Not Detected ETHANOL ALCOHOL 62 mg/dL EKG: If EKG completed, see Procedure Note. Orders and Treatments: Orders Placed This Encounter Procedures XR CHEST 1 VW TROPONIN I COMP. METABOLIC PANEL (50056) LIPASE, SERUM CBC WITH DIFF N-Terminal Pro-Bnp Ethanol COVID-19 (ID NOW TESTING) Lab Only COVID Interpretation O2 Per Protocol Orders Placed This Encounter Medications morpHINE (4 mg/mL) injection 4 mg ondansetron (ZOFRAN (PF)) injection 4 mg ipratropium-albuteroL (DUONEB) 0.5 mg-3 mg(2.5 mg base)/3 mL nebulizer solution 3 mL First Provider Eval: ED Events Date/Time Event User Comments 01/14/24 0510 Medical Screening Begins JAC NAVARRO MD -- 01/14/24 05 First Provider Evaluation JAC NAVARRO MD -- ED COURSE Diagnosis/Impression as of 01/14/24 0605 Chest pain, unspecified type Bronchitis Procedures: EKG-12 Lead ROUTINE ONCE Date/Time: 01/14/2024 5:24 AM Performed by: Jac Navarro MD Authorized by: Jac Navarro MD ECG interpreted by ED Physician in the absence of a cake maker: yes Previous ECG: Previous ECG: Compared to current Similarity: No change Interpretation: Interpretation: non-specific Rate: ECG rate: 100 ECG rate assessment: normal Rhythm: Rhythm: sinus rhythm Ectopy: Ectopy: none QRS: QRS axis: Normal QRS intervals: Normal QRS conduction: RBBB ST segments: ST segments: Non-specific T waves: T waves: non-specific MDM: Medical Decision Making Amount and/or Complexity of Data Reviewed Labs: ordered. Radiology: ordered. Risk Prescription drug management. Parenteral controlled substances. A) COPD, Bronchitis, Chest Pain-stable Disposition/Condition: Home, Steroid taper, Zpak, Tylenol # 3 prn, ER warnings, f/u PCP ED Disposition None Discharge Medications: Patient's Medications START taking these medications No medications on file CONTINUE taking these medications which have NOT CHANGED ALBUTEROL 2.5 MG /3 ML (0.083 %) NEBULIZER SOLUTION Inhale 3 mL every 4 (four) hours as needed for Wheezing or Shortness of Breath. ALBUTEROL 2.5 MG /3 ML (0.083 %) NEBULIZER SOLUTION Inhale 3 mL every 4 (four) hours. May also nebulize one extra every 6 hours. ALBUTEROL 5 MG/ML NEBULIZER SOLUTION Inhale 2.5 mg every 6 (six) hours as needed for Wheezing or Shortness of Breath. ALBUTEROL 90 MCG/ACTUATION INHALER Inhale 2 Puffs every 4 (four) hours as needed for Wheezing or Shortness of Breath. AMLODIPINE 10 MG TABLET Take 10 mg by mouth at bedtime. BUDESONIDE-FORMOTEROL 160-4.5 MCG/ACTUATION INHALER Inhale 2 Puffs 2 (two) times daily. BUDESONIDE-FORMOTEROL 160-4.5 MCG/ACTUATION INHALER Inhale 2 Puffs 2 (two) times daily. BUDESONIDE-FORMOTEROL 160-4.5 MCG/ACTUATION INHALER Inhale 2 Puffs 2 (two) times daily. CHLORDIAZEPOXIDE 25 MG CAPSULE Take 1 capsule by mouth every 6 (six) hours as needed for Anxiety, Agitation, Heart Rate => 100 or Detox. FOLIC ACID 1 MG TABLET Take 1 mg by mouth daily. GABAPENTIN 100 MG CAPSULE Take 100 mg by mouth 2 (two) times daily as needed (MSK pain). HYDROCORTISONE 25 MG SUPPOSITORY Insert 1 Suppository into rectum 2 (two) times daily as needed for Rectal itching/pain. LEVOFLOXACIN 750 MG TABLET Take 1 tablet by mouth every 24 (twenty-four) hours. ONDANSETRON 4 MG DISINTEGRATING TABLET Take 1 tablet by mouth every 8 (eight) hours as needed for Nausea and Vomiting (N/V). PREDNISONE 10 MG TABLET TAKE ONE TABLET BY MOUTH DAILY TRIAMTERENE-HYDROCHLOROTHIAZID 37.5-25 MG TABLET Take 1 tablet by mouth daily. TRIAMTERENE-HYDROCHLOROTHIAZIDE 37.5-25 MG PER CAPSULE Take 1 capsule by mouth every morning. START taking Modified Medications as Prescribed No medications on file STOP taking these medications No medications on file Follow-up: Electronically signed by: Jac Navarro MD 01/14/24 0600 [facility]2024-02-13 23:12:16 Pt given printed and verbal discharge instructions regarding generalized abdominal pain, external hemorrhoid, proctitis, colitis, hypokalemia and encouraged hydration, Prescriptions sent to pharmacy Discussed antibiotic therapy and to take until all completed unless adverse reaction occurs - if occurs, discontinue medication and follow up with pcp/seek medical attention Pt verbalized understanding of instructions, pt awake alert oriented, resp reg unlabored, skin w/d, color appropriate for race, moves all ext well,pt encouraged to follow up with pcp Advised to seek medical attention for new/prolonged/worsening of symptoms. No adverse reaction to meds given in ER noted upon discharge PIV d'cd, dressing to site, catheter in tact. Awake, alert oriented, resp reg unlabored, skin w/d, pt leaving amb with steady gait, in no apparent distress, [facility] Mary Magaña [facility]ytgi9423-[facility] 21:41:55 Pt arrives ambulatory to ED reporting bleeding with stools and 10/10 abdominal pain. States he was here last night but had to leave before receiving results d/t having to work. Says the pain became worse so he came back in. ON Lizama [place] 607554-02-12 21:31:00 Patient leaving AMA,discussed risks of leaving against medical advice, Dr. Maciel aware and notified of patient's decision. Patient encouraged to seek medical attention for any new/prolonged/worsening of symptoms and stressed importance of follow up with a medical provider as soon as possible. AMA form explained, patient signed form. IV d'cd, dressing to site. Patient leaving ambulatory with steady gait, appears in no distress. ON Magaña [place] 607554-02-12 21:30:00 Pt wished to leave AMA. Pt states " yall were wonderful but 3am come real early." [facility]2024-02-12 21:26:22 Pt asking to go outside and smoke, wants to go home and eat. Pt educated on risks of leaving AMA. Provider informed pt is in pain. ON [place] [id number] 19:31:50 Pt arrived ambulatory with complaints of bright red rectal bleeding and generalized abdominal pain this afternoon. Pt states his stool was normal consistency but continuous bright red blood. Denies this happening before. Pt is an alcoholic, had 2 beer [employer]. States he vomits all the time but not something new today. [place] [id number] 20:13:39 Pt requesting to leave AMA. ERP notified. Pt counseled to remain, risks of leaving AMA including discussed with pt. Pt continued to decline further ER evaluation at this time. AMA papers signed, witnessed, and placed on patient's chart. Pt left ambulatory. VS stable, no ataxia noted, GCS 15, A&Ox4. ON [place] - [id number] 19:30:29 Patient arrived to ED c/o SOB and COPD exacerbation. Symptoms started this morning. Patient wears 3L NC at home. Patient is a smoker. Patient states having the chills, diarrhea, and vomiting. States having sharp pains in chest from coughing. ON [place] [facility] [employer] Information
[2024-07-16] MEDS ORDERED: IPRATROPIUM BROM 0.5MG/2.5ML ONE (10:03)
[2024-07-16] MEDS ORDERED: METHYLPREDNISOLONE 125 MG INJ ONE (10:03)
[2024-07-16] MEDS ORDERED: NA CHLORIDE 0.9% 1,000 ML ONE (10:03)
[2024-07-16] MEDS ORDERED: LEVALBUTEROL 1.25 MG/3 ML NEB ONE (10:03)
[2024-07-16 10:30] LABS: Barbiturates NEGATIVE (NEGATIVE); Benzodiazepines NEGATIVE (NEGATIVE); Cocaine NEGATIVE (NEGATIVE); METHAMPHETAM NEGATIVE (NEGATIVE); Methadone NEGATIVE (NEGATIVE); Opiates NEGATIVE (NEGATIVE); Phencyclidine NEGATIVE (NEGATIVE); THC Cannibis NEGATIVE (NEGATIVE)
[2024-07-16 10:32] LABS: Absolute Lymphocytes (CBC) 1.1 K/uL (0.7-4.9); Absolute Monocytes 0.5 K/uL (0.1-1.3); Absolute Neutrophil 10.2 K/uL (1.8-8.0); Basophils % 0.4 % (0-1.3); Hematocrit 37.8 % (39.6-49.0); Hemoglobin 12.7 g/dL (13.6-17.9); Lymphocytes % 9.1 % (15.3-44.8); MCH 31.9 pg (27.0-35.0); MCHC 33.5 g/dL (32.0-36.0); MCV 95.2 fL (80-100); MPV 6.3 fL (7.6-11.3); Monocytes % 4.2 % (3.3-12.3); Neutrophils % 86.3 % (41.7-73.7); Platelets 277 thou/uL (152-406); RBC Red Blood Cell Count 3.98 M/uL (4.33-5.43); Red Cell Distribution Width 16.6 % (12.1-15.2)
[2024-07-16] MEDS ORDERED: LORazepam 2 MG/ML VIAL ONE (10:32)
[2024-07-16 10:33] LABS: Protime INR 0.89
[2024-07-16 10:49] LABS: ALT/SGPT 22 U/L (16-61); AST/SGOT 17 U/L (15-37); Albumin 4.1 g/dL (3.4-5.0); Albumin/Globulin Ratio 1.2 (1.1-1.8); Alkaline Phosphatase 89 U/L (45-117); Anion Gap 16.8 mEq/L (5.0-15.0); BUN Blood Urea Nitrogen 9 mg/dL (7-18); Bicarbonate 21 mEq/L (21-32); Bilirubin Total 0.3 mg/dL (0.2-1.0); Globulin 3.5 g/dL (2.3-3.5); Glomerular Filtration Rate 112 ml/min (=/>90); Glucose Level 129 mg/dL (74-106); Magnesium 1.9 mg/dL (1.6-2.4); NT PRO-BNP 56 pg/mL (<125); Potassium 3.8 mEq/L (3.5-5.1); Protein, Total 7.6 g/dL (6.4-8.2); Sodium Level 134 mEq/L (136-145); Troponin High Sensitivity 5.3 pg/mL (<58.9)
[2024-07-16 10:50] LABS: Bilirubin Direct < 0.2 mg/dL (0-0.2); Bilirubin Indirect, Calculated 0.1 mg/dL (0.2-0.8)
--- NOTE | 2024-07-16 10:58 | ER ---
Nurse's Notes [facility] Name: Randy Grimm Age: 54 yrs Sex: Male : 1970 Arrival Date: 07/16/2024 Time: 09:42 Bed IW10 Private MD: Diagnosis: Cocaine abuse;COPD/ Chronic obstructive pulmonary disease with (acute) exacerbation;Alcohol abuse with intoxication Presentation: 07/16 09:47 Chief complaint: Patient states: SOB. Coronavirus screen: Client denies travel out of [facility] the [place] in the last 14 days. Ebola Screen: Patient denies travel to an Ebola-affected area in the 21 days before illness onset. Initial Sepsis Screen: Does the patient meet any 2 criteria? No. Patient's initial sepsis screen is negative. Does the patient have a suspected source of infection? No. Patient's initial sepsis screen is negative. Risk Assessment: Do you want to hurt yourself or someone else? Patient reports no desire to harm self or others. 09:47 Method Of Arrival: Ambulatory 1 09:47 Acuity: CANDACE 3 ll1 09:49 Chief complaint: Patient states: PATIENT REPORTS SMOKING A QUARTER SIZE AMOUNT OF db "CRACK" LAST NIGHT. STATES HAS CHEST PAIN, SOB AND DOES NOT FEEL RIGHT. Onset of symptoms was July 16, 2024. 09:49 Acuity: CANDACE 2 db Triage Assessment: 09:49 General: Appears distressed, uncomfortable, Behavior is cooperative, anxious. Pain: db Complains of pain in chest. Neuro: Level of Consciousness is awake, alert, obeys commands, Oriented to person, place, time, situation. Cardiovascular: Reports chest pain, shortness of breath, Chest pain is described as Pain is 9 out of 10 on a pain scale. Respiratory: Reports shortness of breath Airway is patent Respiratory effort is even, unlabored, Respiratory pattern is regular, symmetrical, Onset: The symptoms/episode began/occurred this morning, the patient has moderate shortness of breath. Historical: - Allergies: 09:46 Lisinopril; ll1 - PMHx: 09:46 Alcoholism; COPD; Hepatitis B (Hypertension); home 02 3LNC PRN; Hypertension; ll1 Osteoporosis; - PSHx: 09:46 Amputation of left index finger; ll1 - Immunization history:: Adult Immunizations up to date. - Infectious Disease History:: Denies. - Social history:: Smoking status: Patient reports the use of cigarette tobacco products, smokes one pack cigarettes per day. Screenin:55 [facility] ED Fall Risk Assessment (Adult) History of falling in the last 3 months, db including since admission No falls in past 3 months (0 pts) Confusion or Disorientation No (0 pts) Intoxicated or Sedated No (0 pts) Impaired Gait No (0 pts) Mobility Assist Device Used No (0 pt) Altered Elimination No (0 pt) Score/Fall Risk Level 0 - 2 = Low Risk Oriented to surroundings, Maintained a safe environment. Abuse screen: Denies threats or abuse. Denies injuries from another. Nutritional screening: No deficits noted. Tuberculosis screening: No symptoms or risk factors identified. Assessment: 09:55 Reassessment: SEE TRIAGE FOR INITIAL ASSESSMENT. db 10:37 Reassessment: PATIENT REPORTS FEELING ANXIOUS. SEE MAR FOR MEDICATION ADMINISTRATION. db Cardiovascular: Reports chest pain, shortness of breath, Rhythm is regular. Respiratory: Airway is patent Respiratory effort is even, unlabored, Respiratory pattern is regular, symmetrical, Breath sounds are coarse. 10:53 Reassessment: Patient appears in no apparent distress at this time. Patient and/or db family updated on plan of care and expected duration. Pain level reassessed. Patient is alert, oriented x 3, equal unlabored respirations, skin warm/dry/pink. PATIENT LEFT STATING CANNOT WAIT HAS TO GO CLINICAL OPERATIONS CONSULTANT HIS DAUGHTER. NOTIFIED DR. GRIMM. General: Appears in no apparent distress. comfortable, Behavior is cooperative. Pain:. Neuro: Level of Consciousness is awake, alert, obeys commands, Oriented to person, place, time, situation. Vital Signs: 09:49 BP 164 / 95; Pulse 116; Resp 24; Temp 97.8(O); Pulse Ox 95% ; db 10:30 BP 144 / 88; Pulse 99; Resp 20; Pulse Ox 98% on Nebulizer Mask; db Vitals: 10:30 Cardiac Rhythm Assessment Regular Sinus tach. db ED Course: 09:43 Patient arrived in ED. mr 09:47 Bg Grimm MD is Attending Physician. [facility] 09:47 Triage completed. ll1 09:47 Arm band placed on Patient placed in an exam room, on a stretcher. ll1 09:52 Anna Lamb, BRIGETTE is Primary Nurse. db 09:55 Patient has correct armband on for positive identification. Bed in low position. Call db light in reach. Side rails up X 1. Client placed on continuous cardiac and pulse oximetry monitoring. NIBP monitoring applied. lead fabricator on. Pulse ox on. NIBP on. Pillow given. 10:08 Initial lab(s) drawn, by me, sent to lab. Inserted saline lock: 22 gauge in left db antecubital area, using aseptic technique. Blood collected. Flushed with 10 mL NS. 10:14 Urine collected: clean catch specimen, clear. cc6 10:15 EKG done, by ED staff, reviewed by Bg Grimm MD. cc6 10:53 Provided Education on: FOLLOWUP IF SYMPTOMS WORSEN. db 10:53 No provider procedures requiring assistance completed. IV discontinued, intact, db bleeding controlled, No redness/swelling at site. 10:57 XRAY Chest (1 view) In Process Unspecified. EDMS Administered Medications: 10:08 Drug: NS 0.9% IV 1000 ml IV at 125 ml/hr continuous Route: IV; Rate: 125 ml/hr; Site: db left antecubital; 10:52 Follow up: Response: No adverse reaction; IV Status: Completed infusion; IV Intake: db 125ml 10:08 Drug: MethylPrednisoLONE IVP 125 mg IVP once Route: IVP; Site: left antecubital; db 10:52 Follow up: Response: No adverse reaction db 10:10 Drug: Levalbuterol Inhalation 3.75 mg Inhalation once Route: Inhalation; db 10:53 Follow up: Response: No adverse reaction db 10:10 Drug: Ipratropium Inhalation Aerosol 0.5 mg Inhalation once Route: Inhalation; db 10:52 Follow up: Response: No adverse reaction db 10:36 Drug: Ativan IVP 1 mg IVP once Route: IVP; Site: left antecubital; db 10:52 Follow up: Response: No adverse reaction db 10:52 Not Given (Patient Refused): ativan1 mg IVP once db Medication: 10:53 VIS not applicable for this client. db Intake: 10:52 IV: 125ml; Total: 125ml. db Outcome: 10:53 AMA AMA form signed db 10:53 Condition: stable 10:53 Instructed on FOLLOWUP AND RETURN IF SYMPTOMS PERSIST OR WORSEN 11:27 Patient left the ED. db Signatures: Dispatcher [employer] Bg Whitfield MD MD cha Rivera, Bianca, [facility] mr Estella Cano, RN RN ll1 Anna Lamb RN RN db Richa Trimble cc6
--- NOTE | 2024-07-16 10:58 | EDPHYS ---
Physician Documentation [facility] Name: Randy Briones Age: 54 yrs Sex: Male : 1970 Arrival Date: 07/16/2024 Time: 09:42 Bed IW10 Private MD: ED Physician Bg Briones HPI: 07/16 10:51 This 54 yrs old Male presents to ER via Ambulatory with complaints of akash Breathing Difficulty, Chest Pain. 10:51 The patient has shortness of breath at rest, with light activity. Onset: The akash symptoms/episode began/occurred 2 day(s) ago. Duration: The symptoms are continuous, and are steadily getting worse. The patient's shortness of breath is aggravated by coughing, light activity, supine position, is alleviated by nebulizer treatment, application of supplemental oxygen. Associated signs and symptoms: Pertinent positives: non-productive cough. Severity of symptoms: At their worst the symptoms were mild moderate in the emergency department the symptoms are unchanged. The patient has experienced similar episodes in the past, multiple times. Historical: - Allergies: 09:46 Lisinopril; ll1 - PMHx: 09:46 Alcoholism; COPD; Hepatitis B (Hypertension); home 02 3LNC PRN; Hypertension; ll1 Osteoporosis; - PSHx: 09:46 Amputation of left index finger; ll1 - Immunization history:: Adult Immunizations up to date. - Infectious Disease History:: Denies. - Social history:: Smoking status: Patient reports the use of cigarette tobacco products, smokes one pack cigarettes per day. ROS: 10:53 Constitutional: Negative for fever, chills, and weight loss, Eyes: Negative for injury, akash pain, redness, and discharge, ENT: Negative for injury, pain, and discharge, Neck: Negative for injury, pain, and swelling, Cardiovascular: Negative for chest pain, palpitations, and edema, Abdomen/GI: Negative for abdominal pain, nausea, vomiting, diarrhea, and constipation, Back: Negative for injury and pain, : Negative for injury, bleeding, discharge, and swelling, MS/Extremity: Negative for injury and deformity, Skin: Negative for injury, rash, and discoloration, Neuro: Negative for headache, weakness, numbness, tingling, and seizure, Allergy/Immunology: Negative for hives, rash, and allergies, Endocrine: Negative for neck swelling, polydipsia, polyuria, polyphagia, and marked weight changes, 10:53 Respiratory: Positive for cough, dyspnea on exertion, shortness of breath, wheezing, inspiratory, expiratory, 10:53 MS/extremity: Negative for acute changes, 10:53 Psych: Positive for anxiety, Exam: 10:53 Constitutional: This is a well developed, well nourished patient who is awake, alert, akash and in no acute distress. Head/Face: Normocephalic, atraumatic. Eyes: Pupils equal round and reactive to light, extra-ocular motions intact. Lids and lashes normal. Conjunctiva and sclera are non-icteric and not injected. Cornea within normal limits. Periorbital areas with no swelling, redness, or edema. ENT: Nares patent. No nasal discharge, no septal abnormalities noted. Tympanic membranes are normal and external auditory canals are clear. Oropharynx with no redness, swelling, or masses, exudates, or evidence of obstruction, uvula midline. Mucous membranes moist. Neck: Trachea midline, no thyromegaly or masses palpated, and no cervical lymphadenopathy. Supple, full range of motion without nuchal rigidity, or vertebral point tenderness. No Meningismus. Chest/axilla: Normal chest wall appearance and motion. Nontender with no deformity. No lesions are appreciated. Abdomen/GI: Soft, non-tender, with normal bowel sounds. No distension or tympany. No guarding or rebound. No evidence of tenderness throughout. Back: No spinal tenderness. No costovertebral tenderness. Full range of motion. Male : Normal genitalia with no discharge or lesions. Skin: Warm, dry with normal turgor. Normal color with no rashes, no lesions, and no evidence of cellulitis. MS/ Extremity: Pulses equal, no cyanosis. Neurovascular intact. Full, normal range of motion. Neuro: Awake and alert, GCS 15, oriented to person, place, time, and situation. Cranial nerves II-XII grossly intact. Motor strength 5/5 in all extremities. Sensory grossly intact. Cerebellar exam normal. Normal gait. Psych: Awake, alert, with orientation to person, place and time. Behavior, mood, and affect are within normal limits. 10:53 Cardiovascular: Rate: actual rate is 102 bpm, Rhythm: regular, Pulses: Pulses are 4+ in bilateral radial, brachial, femoral, popliteal, posterior tibial and and dorsalis pedis arteries.. Heart sounds: normal, Edema: is not appreciated, JVD: is not appreciated, 10:53 ECG was reviewed by the Attending Physician. Vital Signs: 09:49 BP 164 / 95; Pulse 116; Resp 24; Temp 97.8(O); Pulse Ox 95% ; db 10:30 BP 144 / 88; Pulse 99; Resp 20; Pulse Ox 98% on Nebulizer Mask; db MDM: 09:47 Patient medically screened. [facility] 07/16 09:48 Order name: Basic Metabolic Panel [facility] 07/16 09:48 Order name: CBC with Diff [facility] 07/16 09:48 Order name: LFT's [facility] 07/16 09:48 Order name: Magnesium [facility] 07/16 09:48 Order name: NT PRO-BNP [facility] 07/16 09:48 Order name: PT-INR [facility] 07/16 09:48 Order name: Troponin HS [facility] 07/16 09:48 Order name: UDS [facility] 07/16 11:14 Order name: CBC Smear Scan [facility] 07/16 09:48 Order name: XRAY Chest (1 view) [facility] 07/16 09:48 Order name: Cardiac monitoring; Complete Time: 10:08 [facility] 07/16 09:48 Order name: EKG - Nurse/Tech; Complete Time: 10: [facility] 07/16 09:48 Order name: IV Saline Lock; Complete Time: 10:08 [facility] 07/16 09:48 Order name: Labs collected and sent; Complete Time: 10:08 [facility] 07/16 09:48 Order name: O2 Per Protocol; Complete Time: 10: [facility] 07/16 09:48 Order name: O2 Sat Monitoring; Complete Time: 10:08 [facility] EC:53 Rate is 102 beats/min. Rhythm is regular. QRS Purdy is Normal. OH interval is normal. [facility] QRS interval is normal. QT interval is normal. No Q waves. T waves are Normal. ST Segment is depressed in leads II, III, aVF. Clinical impression: NSR w/ Non-specific ST/T Changes. Interpreted by me. Reviewed by me. Administered Medications: 10:08 Drug: NS 0.9% IV 1000 ml IV at 125 ml/hr continuous Route: IV; Rate: 125 ml/hr; Site: db left antecubital; 10:52 Follow up: Response: No adverse reaction; IV Status: Completed infusion; IV Intake: db 125ml 10:08 Drug: MethylPrednisoLONE IVP 125 mg IVP once Route: IVP; Site: left antecubital; db 10:52 Follow up: Response: No adverse reaction db 10:10 Drug: Levalbuterol Inhalation 3.75 mg Inhalation once Route: Inhalation; db 10:53 Follow up: Response: No adverse reaction db 10:10 Drug: Ipratropium Inhalation Aerosol 0.5 mg Inhalation once Route: Inhalation; db 10:52 Follow up: Response: No adverse reaction db 10:36 Drug: Ativan IVP 1 mg IVP once Route: IVP; Site: left antecubital; db 10:52 Follow up: Response: No adverse reaction db 10:52 Not Given (Patient Refused): ativan1 mg IVP once db Disposition Summary: 07/16/24 10:58 Left Against Medical Advice Notes: Location: Home akash Problem: new akash Symptoms: have improved akash Condition: Stable akash Diagnosis - Cocaine abuse akash - COPD/ Chronic obstructive pulmonary disease with (acute) exacerbation akash - Alcohol abuse with intoxication akash Followup: akash - With: Private Physician - When: Upon discharge from the Emergency Department - Reason: Recheck today's complaints, Continuance of care, Re-evaluation by your physician Discharge Instructions: - Discharge Summary Sheet akash - Alcohol Intoxication akash - Asthma, Adult akash - Chronic Obstructive Pulmonary Disease akash - Cocaine Use Disorder akash - Asthma Attack akash - Chronic Obstructive Pulmonary Disease Exacerbation akash - Chronic Obstructive Pulmonary Disease, Djtc-[id number] akash - Alcohol Intoxication, [id number]-[id number] akash - Tobacco Use Disorder akash - Cough, Adult, [id number] akash - How to Use a Nebulizer, Adult akash - Asthma Action Plan, Adult akash Signatures: Dispatcher [employer] EDMS Bg Briones MD MD cha Lewis, Lynsay, RN RN ll1 Anna Lamb RN RN db Corrections: (The following items were deleted from the chart) 09:48 09:48 BASIC METABOLIC PANEL+C.LAB.BRZ ordered. EDMS EDMS 09:48 09:48 CBC+H.LAB.BRZ ordered. EDMS EDMS 09:48 09:48 HEPATIC FUNCTION+C.LAB.BRZ ordered. EDMS EDMS 09:48 09:48 MAGNESIUM+C.LAB.BRZ ordered. EDMS EDMS 09:48 09:48 PROBNP+C.LAB.BRZ ordered. EDMS EDMS 09:48 09:48 PROTIME (+INR)+COAG.LAB.BRZ ordered. EDMS EDMS 09:48 09:48 Troponin High Sensitivity+C.LAB.BRZ ordered. EDMS EDMS 09:48 09:48 URINE DRUG SCREEN+UC.LAB.BRZ ordered. EDMS EDMS 09:49 09:49 Chest Single View+RAD.RAD.BRZ ordered. EDMS EDMS
[2024-07-16 11:13] LABS: Blood Morphology Comment NOT SEEN (NOT SEEN); Platelet Estimate ADEQ; White Blood Cell Scan OK (OK)
--- NOTE | 2024-07-16 11:22 | RAD REPORT ---
[facility] 10[facility]56 am CLINICAL HISTORY: COPD;Cough COMPARISON: Chest Single View dated 05/07/2024; Chest Single View dated 05/07/2024; Chest Single View dated 05/04/2024; Chest Single View dated 04/29/2024 TECHNIQUE: Portable AP view of the chest. FINDINGS: The lungs are clear. No pneumothorax or effusion. The cardiomediastinal contours are unre markable. IMPRESSION: No acute cardiopulmonary process.
[2024-07-16 11:40] VITALS: TEMP 97.8
[2024-07-16 11:41] VITALS: BP 144/88; O2SAT 98
--- NOTE | 2024-07-18 17:04 | EKG ---
Test Date: 2024-07-16 Test Time: 09:57:22 Public Health Professor: IMMANUEL MEASUREMENT RESULTS: Intervals: Rate: 102 IN: 136 QRSD: 110 QT: 376 QTc: 490 [place]: P: 64 IN: 136 QRS: 95 T: 86 INTERPRETIVE STATEMENTS: Sinus tachycardia Otherwise normal ECG Compared to ECG 05/07/2024 10:39:41 Sinus rhythm no longer present Incomplete right bundle-branch block no longer present Prolonged QT interval no longer present Electronically Signed On 07-18-24 17:00:20 CDT by Rosalino Albert
== END 2024-07-16 11:27 | disposition left against medical advice (07) ==
LOC: ER 09:42
DX: J44.1 Chronic obstructive pulmonary disease with (acute) exacerbation (principal); F14.10 Cocaine abuse, uncomplicated; F10.229 Alcohol dependence with intoxication, unspecified; Z99.81 Dependence on supplemental oxygen; I10 Essential (primary) hypertension; F17.210 Nicotine dependence, cigarettes, uncomplicated
CPT/HCPCS: 96361; 93005; 85025; 80048; 36415; 83735; 85610; 80076; 84484; 83880; 80307; 71045; 96375; 96374; 99285; J7614; J7644; J2919; J7030

== ENCOUNTER 2024-07-16 17:39 | Emergency (ER) | payer OTHER ==
--- OUTSIDE RECORDS SUMMARY | 2024-07-16 17:43 | XMS REPORT | Continuity of Care Document ---
Author Name Unknown Address [address] [facility] [address] [place] [address] [facility] Address [address] 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 Name Role Phone Juan Daniel [facility] Primary Care Physician [phone] WENDY BROWNLEE Attending Clinician Unava MYRNA Honeycutt Attending Clinician Unavailable DARIEN LOBO Attending Clinician Unavailable MINNA ORTA Attending Clinician Unavailab SHARATH Isbell Attending Clinician Unavailable YARY CAMP Attending Clinician Unavailable Yary Camp NP Attending Clinician [phone] TUNDE QUINTANILLA Attending Clinician Unavailable KEISHA DAVENPORT Attending Clinician UnaKeisha Carver MD Attending Clinician + Christina Victoria Attending Clinician [phone] JAC NAVARRO Attending Clinician Unavailable Jac Navarro MD Attending Clinician [phone] CAILIN ROWE Attending Clinician Unavailab QUENTIN Boothe Attending Clinician Unavailable Quentin Maciel DO Attending Clinician [phone] CHRISTY HOLLIDAY Attending Clinician Unavailable Christy Holliday MD Attending Clinician [phone] MARIA ELENA [facility] Attending Clinicia n Unavailable DENISE SUNG Attending Clinician Unavailable KARLEY ADAMS Attending Clinician Unavailable JAC NAVARRO Admitting Clinician Unavailable QUENTIN MACIEL Admitting Clinician Unavailable CHRISTY HOLLIDAY Admitting Clinician Unavailable Payers Payer Name Policy Type Policy Number Effective Date Expirati on Date Source [facility] [id number] 2024 00:00:00 [facility] VINOD LEE COPAY FOCUS 9 [id number] 2024 00:00:00 [employer] [id number] 2023 00:00:00 [employer] 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 ON 9 [id number] 2023 00:00:00 Problems Condition Name Condition Details Condition Category Status Onset Date Resolution Date Last Treatment Date Treating Clinician Comments Source Acute exacerbati on of chronic obstructiv e pulmonary disease (COPD) Acute exacerbati on of chronic obstructiv e pulmonary disease (COPD) Disease Active 03-24 00:00: 00 [facility] Obesity (BMI 30-39.9) Obesity (BMI 30-39.9) Disease Active 03-24 00:00: 00 [facility] Allergies, Adverse Reactions, Alerts Allergy Name Allergy Type Status Severity Reaction(s) Onset Date Inactive Date Treating Clinician Comments Source Lisinopr il Propensi ty to adverse reaction s Active Anaphylaxis 03-24 00:00: 00 [facility] LISINOPR [place] DRUG INGREDI Active Anaphylaxis 03-24 00:00: 00 [facility] Social History Social Habit Start Date Stop Date Quantity Comments Source History of tobacco use Smokes tobacco daily [facility] of Social function 2024-05-24 00:00:00 2024-05-24 00:00:00 [facility] Alcoholic beverage intake 2024-05-24 00:00:00 2024-05-24 00:00:00 4.29 /d [facility] Alcohol intake 2024-02-08 00:00:00 2024-02-08 00:00:00 4.29 /d [facility] Exposure to SARS-CoV-2 (event) 2022-10-04 00:00:00 2022-10-14 10:25:00 Not sure [facility] Tobacco use and exposure 2018-03-24 00:00:00 2018-03-24 00:00:00 User of smokeless tobacco [facility] Tobacco Comment 2018-03-24 00:00:00 2018-03-24 00:00:00 trying to quit [facility] Sex assigned at 1970 00:00:00 1970 00:00:00 [facility] Smoking Status Start Date Stop Date Source Smokes tobacco daily 2018-03-24 00:00:00 [facility] Medications Ordered Medication Name Filled Medication Name Start Date Stop Date Current Medication? Ordering Clinician Indication Dosage Frequency Signature (SIG) Comments Components Source albuterol sulfate HFA 90 mcg/actuati on aerosol inhaler 05-26 00:00: 00 Yes 1mcg/ac tuation Tunde Olamide Haro ipratropium 0.5 mg-albutero l 3 mg (2.5 mg base)/3 mL nebulizatio n soln 05-26 00:00: 00 Yes 1mg base)/3 mL Tunde Olamide Haro prednisone 10 mg tablet 05-26 00:00: 00 Yes 1mg Tunde Olamide Tahir naltrexone 50 mg tablet 05-26 00:00: 00 Yes 1mg Tunde Olamide Haro spironolact one 25 mg tablet 05-26 00:00: 00 Yes 1mg Tunde Olamide Haro pantoprazol e 40 mg tablet,vel yed release 05-26 00:00: 00 Yes 1mg Tunde F Tahir oxybutynin chloride 5 mg tablet 05-26 00:00: [...] 1 dose, On Thu05/24/24 at 0900, LAURYN [facility] mupirocin 2 % ointment 05-24 00:00: 00 Yes [id number] 6 Apply to area(s) 3 (three) times daily. [facility] cephALEXin 500 mg tablet 05-24 00:00: 00 06-01 04:59 :00 Yes [id number] 6 500mg Take 1 tablet by mouth 4 (four) times daily for 7 days. [facility] ketorolac (TORADOL) injection 30 mg 02-17 03:15: 00 02-17 15:14 :00 No 30mg 30 mg, Slow IV Push, ONCE, 1 dose, On Thu02/17/24 at 2215, Routine [facility] methylpredn isolone sod succ (SOLU-MEDRO L) injection 125 mg 2024-0 4-11 03:00: 00 02-17 14:59 :00 No 125mg 125 mg, Intravenou s, ONCE, 1 dose, On Thu02/17/24 at 2200, 2 mL [facility] ipratropium -albuteroL (DUONEB) 0.5 mg-3 mg(2.5 mg base)/3 mL nebulizer solution 6 mL 02-17 03:00: 00 02-17 14:59 :00 No 6mL 6 mL, Inhalation , ONCE NOW, 1 dose, On Thu02/17/24 at 2200, Routine [facility] NaCl 0.9% (NS) bolus infusion 1,000 mL 02-17 03:00: 00 02-17 14:59 :00 No 1000mL at 999 mL/hr, 1,000 mL, IV Infusion, ONCE, 1 dose, On Thu02/17/24 at 2200, LAURYN [facility] triamterene -hydrochlor othiazide 37.5-25 mg per capsule 02-16 20:52: 37 02-16 00:00 :00 No 1{capsu le} Take 1 capsule by mouth every morning. [facility] albuterol 5 mg/mL nebulizer solution 02-16 20:51: 42 02-16 00:00 :00 No 2.5mg Inhale 2.5 mg every 6 (six) hours as needed for Wheezing or Shortness of Breath. [facility] ketorolac (TORADOL) injection 15 mg 02-08 03:00: 00 02-08 02:21 :00 No 15mg 15 mg, Slow IV Push, ONCE, 1 dose, On Thu02/08/24 at 2200, Routine [facility] iopamidol (ISOVUE 370-500 mL) injection 100 mL 02-07 22:30: 00 02-07 22:30 :00 No [id number] 100mL 100 mL, Intravenou s, ONCE, 1 dose, On Thu02/08/24 at 1730, Routine [facility] ipratropium -albuteroL (DUONEB) 0.5 mg-3 mg(2.5 mg base)/3 mL nebulizer solution 3 mL 02-07 21:15: 00 02-07 20:45 :00 No 3mL 3 mL, Inhalation , ONCE, 1 dose, On Thu02/08/24 at 1615, Routine [facility] morpHINE (2 mg/mL) injection 4 mg 02-07 21:15: 00 02-07 20:27 :00 No 4mg 4 mg, Slow IV Push, ONCE, 1 dose, On Thu02/08/24 at 1615, STAT [facility] ondansetron (ZOFRAN (PF)) injection 4 mg 02-07 21:15: 00 02-07 20:22 :00 No 4mg 4 mg, Slow IV Push, ONCE, 1 dose, On Thu02/08/24 at 1615, LAURYN [facility] magnesium sulfate in water 2 gram/50 mL (4 %) infusion 2 g 02-07 21:00: 00 02-07 21:30 :00 No 2g 2 g, IV Piggyback, Administer over 60 Minutes, ONCE, 1 dose, On Thu02/08/24 at 1600, Routine [facility] ipratropium -albuteroL (DUONEB) 0.5 mg-3 mg(2.5 mg base)/3 mL nebulizer solution 3 mL 02-07 20:30: 00 02-07 19:31 :00 No 3mL 3 mL, Inhalation , ONCE, 1 dose, On Thu02/08/24 at 1530, Routine [facility] HYDROcodone -acetaminop hen (NORCO) 10-325 mg tablet 1 tablet 01-13 13:15: 00 01-13 12:15 :00 No 1{tbl} 1 tablet, Oral, ONCE, 1 dose, On [facility] 01/14/24 at 0715, LAURYN [facility] ipratropium -albuteroL (DUONEB) 0.5 mg-3 mg(2.5 mg base)/3 mL nebulizer solution 3 mL 01-13 13:00: 00 01-13 11:53 :00 No 3mL 3 mL, Inhalation , ONCE NOW, 1 dose, On Kym 01/14/24 at 0700, LAURYN [facility] ondansetron (ZOFRAN (PF)) injection 4 mg 01-13 11:30: 00 01-13 11:37 :00 No 4mg 4 mg, Slow IV Push, ONCE, 1 dose, On Kym 01/14/24 at 0530, LAURYN [facility] morpHINE (4 mg/mL) injection 4 mg 01-13 11:30: 00 01-13 11:37 :00 No 4mg 4 mg, Slow IV Push, ONCE, 1 dose, On Kym 01/14/24 at 0530, STAT [facility] azithromyci n (ZITHROMAX Z-PORTER) 250 mg tablet 01-13 00:00: 00 02-16 00:00 :00 No [id number] Take 500 mg on day 1 then 250 mg on days 2-5 [facility] predniSONE 20 mg tablet 01-13 00:00: 00 02-16 00:00 :00 No [id number] Take 1 po tid x 2 days, then take 1 po bid x 3 days, then take 1 po daily x 3 days. [facility] acetaminoph en-codeine 300-30 mg tablet 01-13 00:00: 00 01-21 04:59 :00 No [id number] 1{tbl} Take 1 tablet by mouth every 6 (six) hours as needed for Pain (scale 7-10) (severe cough) for up to 7 days. Indication s: acute pain, severe cough [facility] clonazePAM 1 mg tablet 17 00:00: 00 02-16 00:00 :00 No 1mg Take 1 tablet by mouth at bedtime as needed for Other (anxiety). [facility] KCL (KLOR-CON M20) tablet 40 mEq -14 05:00: 00 12-23 05:07 :00 No 40meq 40 mEq, Oral, ONCE, 1 dose, On Thu12/22/23 at 2300, [facility] NaCl 0.9% (NS) bolus infusion 1,000 mL 12-23 05:00: 00 12-23 05:09 :00 No 1000mL at 999 mL/hr, 1,000 mL, IV Infusion, ONCE, 1 dose, On Thu12/22/23 at 2300, [facility] ondansetron (ZOFRAN (PF)) injection 4 mg 12-23 04:30: 00 12-23 04:24 :00 No 4mg 4 mg, Slow IV Push, ONCE, 1 dose, On Thu12/22/23 at 2230, [facility] maalox:diph enhydrAMINE :lidocaine 2 % viscous 1:1:1 ([facility]) oral suspension 15 mL 12-23 04:15: 00 12-23 04:17 :00 No 15mL 15 mL, Oral, ONCE, 1 dose, On Thu12/22/23 at 2215, Routine [facility] famotidine (PEPCID (PF)) injection 20 mg 12-23 04:15: 00 12-23 04:15 :00 No 20mg 20 mg, Slow IV Push, ONCE, 1 dose, On Thu12/22/23 at 2215, [facility] HYDROcodone -acetaminop hen (NORCO) 10-325 mg tablet 1 tablet 12-22 04:30: 00 12-22 16:29 :00 No 1{tbl} 1 tablet, Oral, ONCE, 1 dose, On Thu12/21/23 at 2230, Routine [facility] pantoprazol e (PROTONIX) 80 mg in NaCl 0.9% (NS) 20 mL syringe 12-22 04:15: 00 12-22 16:14 :00 No 80mg 80 mg, IV Push, ONCE, 1 dose, On Thu12/21/23 at 2215, Administer over 2 Minutes, 20 mL [facility] iopamidol (ISOVUE 370-500 mL) injection 100 mL 12-22 03:30: 00 12-22 03:30 :00 No [id number] 100mL 100 mL, Intravenou s, ONCE, 1 dose, On Thu12/21/23 at 2130, Routine [facility] morpHINE (4 mg/mL) injection 4 mg 12-22 03:30: 00 12-22 02:16 :00 No 4mg 4 mg, Slow IV Push, ONCE, 1 dose, On Thu12/21/23 at 2130, Routine [facility] ondansetron (ZOFRAN (PF)) injection 4 mg 12-22 02:45: 00 12-22 02:02 :00 No 4mg 4 mg, Slow IV Push, ONCE, 1 dose, On Thu12/21/23 at 2045, Routine [facility] hydrocortis one 25 mg suppository 12-22 00:00: 00 Yes [id number] 25mg Insert 1 Suppositor y into rectum 2 (two) times daily as needed for Rectal itching/pa in. [facility] ondansetron 4 mg disintegrat ing tablet 12-22 00:00: 00 02-16 00:00 :00 No [id number] 4mg Take 1 tablet by mouth every 8 (eight) hours as needed for Nausea and Vomiting (N/V). [facility] amoxicillin -clavulanat e 875-125 mg per tablet 12-22 00:00: 00 01-02 05:59 :00 No [id number] 1{tbl} Take 1 tablet by mouth every 12 (twelve) hours for 10 days. [facility] methylpredn isolone sod succ (SOLU-MEDRO L) injection 125 mg 2022-11 08:45: 00 10-27 20:44 :00 No 125mg 125 mg, Slow IV Push, ONCE, 1 dose, On Thu10/27/23 at 0245, STAT [facility] ipratropium -albuteroL (DUONEB) 0.5 mg-3 mg(2.5 mg base)/3 mL nebulizer solution 3 mL 2022-11 08:45: 00 10-27 20:44 :00 No 3mL 3 mL, Inhalation , ONCE NOW, 1 dose, On Thu10/27/23 at 0245, LAURYN [facility] diazePAM (VALIUM) tablet 10 mg 2022-11 07:45: 00 10-27 19:44 :00 No 10mg 10 mg, Oral, ONCE, 1 dose, On Thu10/27/23 at 0145, LAURYN [facility] levoFLOXaci n (LEVAQUIN) tablet 500 mg 2022-11 07:45: 00 10-27 19:44 :00 No 500mg 500 mg, Oral, ONCE, 1 dose, On Thu10/27/23 at 0145, LAURYN
Re ason for Anti-Infec tive: Empiric Non-Surgic al Prophylaxi s
Durat ion of therapy: Once (ED) [facility] DICLOFEN SOD 75MG EC 04-08 00:00: 00 Yes Tunde Haro AZITHROMYCI N 250MG 04-08 00:00: 00 Yes Tunde Haro PREDNISONE 10MG 08 00:00: 00 Yes Tunde Haro TAKE ONE (1) TABLET(S) BY MOUTH ONCE A DAY. 03-13 00:00: 00 Yes Tunde Haro AMLODIPINE 10MG 03-06 00:00: 00 Yes Tunde Haro CLONAZEPAM 1MG 03-06 00:00: 00 Yes Tunde Haro PREDNISONE 20MG 03-01 00:00: 00 Yes Tunde Haro OLOPATADINE 0.1% RX ERICA 03-01 00:00: 00 Yes Tunde Haro INSTILL ONE DROP TWICE A DAY 02-27 00:00: 00 Yes Tunde Haro ALBUTEROL(V ) HFA 200 INH 2023-0 4-05 00:00: 00 Yes Tunde Haro CHLORDIAZEP OXIDE 25MG CAPSULES 4- 00:00: 00 Yes Tunde Haro LORAZEPAM 2MG 3- 00:00: 00 Yes 1999 Tunde Haro PREDNISONE 20MG 3- 00:00: 00 Yes Tunde Haro AMOX/K CLAV [id number] [id number] 3-03 00:00: 00 Yes Tunde Haro iopamidol (ISOVUE 370-500 mL) injection 70 mL 2021-11 18:30: 00 10-14 18:30 :00 No [id number] 70mL 70 mL, Intravenou s, ONCE, 1 dose, On Thu10/14/22 at 1230, Routine [facility] methylpredn isolone sod succ (SOLU-MEDRO L) injection 125 mg 2021-11 18:00: 00 Yes 125mg 125 mg, Intravenou s, Q6H, First dose on Thu10/14/22 at 1200, Until Discontinu ed, Routine [facility] furosemide (LASIX) injection 40 mg 2021-11 17:45: 00 10-14 16:39 :00 No 40mg 40 mg, IV Push, ONCE, 1 dose, On Thu10/14/22 at 1145, LAURYN [facility] ipratropium -albuteroL (DUONEB) 0.5 mg-3 mg(2.5 mg base)/3 mL nebulizer solution 3 mL 2021-11 17:30: 00 10-14 16:41 :00 No 3mL 3 mL, Inhalation , ONCE, 1 dose, On Thu10/14/22 at 1130, Routine [facility] FENTanyl PF (SUBLIMAZE (PF)) injection 50 mcg 2021-11 16:45: 00 10-14 16:39 :00 No 50ug 50 mcg, Slow IV Push, ONCE, 1 dose, On Thu10/14/22 at 1045, Routine [facility] levoFLOXaci n 750 mg tablet 2021-11 00:00: 00 02-16 00:00 :00 No [id number] 750mg Take 1 tablet by mouth every 24 (twenty-fo ur) hours. [facility] HYDROcodone -acetaminop hen (NORCO) 10-325 mg tablet 1 tablet 03-12 12:15: 00 03-12 11:21 :00 No 1{tbl} 1 tablet, Oral, ONCE, 1 dose, On Thu03/12/22 at 0715, Routine [facility] HYDROcodone -acetaminop hen 10-325 mg tablet 03-12 00:00: 00 03-20 04:59 :00 No [id number] 1{tbl} Take 1 tablet by mouth every 6 (six) hours as needed for Pain (scale 7-10) for up to 7 days. Indication s: acute pain [facility] ipratropium -albuteroL (DUONEB) 0.5 mg-3 mg(2.5 mg base)/3 mL nebulizer solution 3 mL 02-20 13:00: 00 Yes 3mL 3 mL, Inhalation , QID, First dose on Thu02/20/22 at 0800, Until Discontinu ed, Routine [facility] methylPREDN ISolone sod succ (SOLU-MEDRO L (PF)) injection 40 mg 02-20 11:45: 00 02-20 10:43 :00 No 40mg 40 mg, Intravenou s, ONCE, 1 dose, On Thu02/20/22 at 0645, STAT [facility] foLIC acid (FOLATE) tablet 1 mg 02-20 11:45: 00 02-20 10:41 :00 No 1mg 1 mg, Oral, ONCE, 1 dose, On Thu02/20/22 at 0645, LAURYN [facility] thiamine (VITAMIN B1) injection 100 mg 02-20 11:45: 00 02-20 10:43 :00 No 100mg 100 mg, Intravenou s, ONCE, 1 dose, On Thu02/20/22 at 0645, LAURYN [facility] LORazepam (ATIVAN) injection 2 mg 02-20 11:45: 00 02-20 10:42 :00 No 2mg 2 mg, Slow IV Push, ONCE, 1 dose, On [facility] 02/20/22 at 0645, STAT [facility] ipratropium -albuteroL (DUONEB) 0.5 mg-3 mg(2.5 mg base)/3 mL nebulizer solution 3 mL 02-20 10:30: 00 02-20 09:34 :00 No 3mL 3 mL, Inhalation , ONCE, 1 dose, On [facility] 02/20/22 at 0530, Routine [facility] albuterol 90 mcg/actuati on inhaler 02-20 00:00: 00 Yes [id number] 2{puff} Inhale 2 Puffs every 4 (four) hours as needed for Wheezing or Shortness of Breath. [facility] triamterene -hydrochlor othiazid 37.5-25 mg tablet 02-20 00:00: 00 Yes [id number] 1{tbl} Take 1 tablet by mouth daily. [facility] chlordiazeP OXIDE 25 mg capsule 02-20 00:00: 00 Yes [id number] 25mg Take 1 capsule by mouth every 6 (six) hours as needed for Anxiety, Agitation, Heart Rate => 100 or Detox. [facility] predniSONE 10 mg tablet 02-20 00:00: 00 02-16 00:00 :00 No [id number] TAKE ONE TABLET BY MOUTH DAILY [facility] albuterol 2.5 mg /3 mL (0.083 %) nebulizer solution 02-20 00:00: 00 02-16 00:00 :00 No [id number] 2.5mg Inhale 3 mL every 4 (four) hours. May also nebulize one extra every 6 hours. [facility] budesonide- formoteroL 160-4.5 mcg/actuati on inhaler 02-20 00:00: 00 02-16 00:00 :00 No [id number] 2{puff} Inhale 2 Puffs 2 (two) times daily. [facility] albuterol 5 mg/mL nebulizer solution 07-16 14:02: 20 Yes 2.5mg Inhale 2.5 mg every 6 (six) hours as needed for Wheezing or Shortness of Breath. [facility] budesonide- formoterol 160-4.5 mcg/actuati on inhaler 07-16 00:00: 00 Yes 2{puff} Inhale 2 Puffs 2 (two) times daily. [facility] albuterol 2.5 mg /3 mL (0.083 %) nebulizer solution 07-16 00:00: 00 Yes 2.5mg Inhale 3 mL every 4 (four) hours as needed for Wheezing or Shortness of Breath. [facility] triamterene -hydrochlor othiazide 37.5-25 mg per capsule 03-26 16:32: 14 Yes 1{capsu le} Take 1 capsule by mouth every morning. [facility] amLODIPine 10 mg tablet 03-26 16:32: 14 Yes 10mg Take 10 mg by mouth at bedtime. [facility] gabapentin 100 mg capsule 03-26 16:32: 14 Yes 100mg Take 100 mg by mouth 2 (two) times daily as needed ([facility] pain). [facility] foLIC acid 1 mg tablet 03-26 16:32: 14 Yes 1mg Take 1 mg by mouth daily. [facility] budesonide- formoterol 160-4.5 mcg/actuati on inhaler 03-26 00:00: 00 02-16 00:00 :00 No 2{puff} Inhale 2 Puffs 2 (two) times daily. [facility] Immunizations Ordered Immunization Name Filled Immunization Name Date Status Comments Source SARS-COV-2 COVID-19 PFIZER VACCINE 2021-02-03 00:00:00 Completed [facility] SARS-COV-2 COVID-19 PFIZER VACCINE 2021-02-03 00:00:00 Completed [facility] SARS-COV-2 COVID-19 PFIZER VACCINE 2021-02-03 00:00:00 Completed [facility] SARS-COV-2 COVID-19 PFIZER VACCINE 2021-01-13 00:00:00 Completed [facility] SARS-COV-2 COVID-19 PFIZER VACCINE 2021-01-13 00:00:00 Completed [facility] SARS-COV-2 COVID-19 PFIZER VACCINE 2021-01-13 00:00:00 Completed [facility] Pneumococcal Polysaccharide, PPSV23 (PNEUMOVAX) 2018-03-26 00:00:00 Completed [facility] Influenza Virus Vaccine Quad IM 3+ YRS 2018-03-26 00:00:00 Completed [facility] Pneumococcal Polysaccharide, PPSV23 (PNEUMOVAX) 2018-03-26 00:00:00 Completed [facility] Influenza Virus Vaccine Quad IM 3+ YRS 2018-03-26 00:00:00 Completed [facility] Pneumococcal Polysaccharide, PPSV23 (PNEUMOVAX) 2018-03-26 00:00:00 Completed [facility] Influenza Virus Vaccine Quad IM 3+ YRS 2018-03-26 00:00:00 Completed [facility] Pneumococcal Polysaccharide, PPSV23 (PNEUMOVAX) Unknown Completed [facility] Influenza Virus Vaccine Quad IM 3+ YRS Unknown Completed [facility] SARS-COV-2 COVID-19 PFIZER VACCINE Unknown Completed [facility] SARS-COV-2 COVID-19 PFIZER VACCINE Unknown Completed [facility] Pneumococcal Polysaccharide, PPSV23 (PNEUMOVAX) Unknown Completed [facility] Influenza Virus Vaccine Quad IM 3+ YRS Unknown Completed [facility] SARS-COV-2 COVID-19 PFIZER VACCINE Unknown Completed [facility] SARS-COV-2 COVID-19 PFIZER VACCINE Unknown Completed [facility] Pneumococcal Polysaccharide, PPSV23 (PNEUMOVAX) Unknown Completed [facility] Influenza Virus Vaccine Quad IM 3+ YRS Unknown Completed [facility] SARS-COV-2 COVID-19 PFIZER VACCINE Unknown Completed [facility] SARS-COV-2 COVID-19 PFIZER VACCINE Unknown Completed [facility] Pneumococcal Polysaccharide, PPSV23 (PNEUMOVAX) Unknown Completed [facility] Influenza Virus Vaccine Quad IM 3+ YRS Unknown Completed [facility] SARS-COV-2 COVID-19 PFIZER VACCINE Unknown Completed [facility] SARS-COV-2 COVID-19 PFIZER VACCINE Unknown Completed [facility] Pneumococcal Polysaccharide, PPSV23 (PNEUMOVAX) Unknown Completed [facility] Influenza Virus Vaccine Quad IM 3+ YRS Unknown Completed [facility] SARS-COV-2 COVID-19 PFIZER VACCINE Unknown Completed [facility] SARS-COV-2 COVID-19 PFIZER VACCINE Unknown Completed [facility] Pneumococcal Polysaccharide, PPSV23 (PNEUMOVAX) Unknown Completed [facility] Influenza Virus Vaccine Quad IM 3+ YRS Unknown Completed [facility] SARS-COV-2 COVID-19 PFIZER VACCINE Unknown Completed [facility] SARS-COV-2 COVID-19 PFIZER VACCINE Unknown Completed [facility] Pneumococcal Polysaccharide, PPSV23 (PNEUMOVAX) Unknown Completed [facility] Influenza Virus Vaccine Quad IM 3+ YRS Unknown Completed [facility] SARS-COV-2 COVID-19 PFIZER VACCINE Unknown Completed [facility] SARS-COV-2 COVID-19 PFIZER VACCINE Unknown Completed [facility] Pneumococcal Polysaccharide, PPSV23 (PNEUMOVAX) Unknown Completed [facility] Influenza Virus Vaccine Quad IM 3+ YRS Unknown Completed [facility] SARS-COV-2 COVID-19 PFIZER VACCINE Unknown Completed [facility] SARS-COV-2 COVID-19 PFIZER VACCINE Unknown Completed [facility] Pneumococcal Polysaccharide, PPSV23 (PNEUMOVAX) Unknown Completed [facility] Influenza Virus Vaccine Quad IM 3+ YRS Unknown Completed [facility] SARS-COV-2 COVID-19 PFIZER VACCINE Unknown Completed [facility] SARS-COV-2 COVID-19 PFIZER VACCINE Unknown Completed [facility] Vital Signs Vital Name Observation Time Observation Value Comments S ource Systolic blood pressure 2024-05-24 13:51:42 157 mm[Hg] [facility] Diastolic blood pressure 2024-05-24 13:51:42 93 mm[Hg] [facility] Heart rate 2024-05-24 13:51:42 98 /min [facility] 2024-05-24 13:51:42 18 /min [facility] Oxygen saturation in Arterial blood by Pulse oximetry 2024-05-24 13:51:42 97 /min [facility] Body temperature 2024-05-24 13:36:00 36.78 Debbie [facility] Body height 2024-05-24 13:36:00 162.6 cm [facility] Body weight 2024-05-24 13:36:00 78.472 kg [facility] BMI 2024-05-24 13:36:00 29.70 kg/m2 [facility] Systolic blood pressure 2024-02-18 01:57:00 134 mm[Hg] [facility] Diastolic blood pressure 2024-02-18 01:57:00 94 mm[Hg] [facility] Body height 2024-02-18 01:57:00 162.6 cm [facility] Body weight 2024-02-18 01:57:00 79.379 kg [facility] BMI 2024-02-18 01:57:00 30.04 kg/m2 [facility] Heart rate 2024-02-18 01:53:00 110 /min [facility] Body temperature 2024-02-18 01:53:00 36.61 Debbie [facility] Respiratory rate 2024-02-18 01:53:00 24 /min [facility] Oxygen saturation in Arterial blood by Pulse oximetry 2024-02-18 01:53:00 93 /min [facility] Systolic blood pressure 2024-02-09 01:54:05 150 mm[Hg] [facility] Diastolic blood pressure 2024-02-09 01:54:05 91 mm[Hg] [facility] Heart rate 2024-02-09 01:54:05 87 /min [facility] Respiratory rate 2024-02-09 01:54:05 17 /min [facility] Oxygen saturation in Arterial blood by Pulse oximetry 2024-02-09 01:54:05 93 /min [facility] Body temperature 2024-02-09 01:45:00 36.67 Debbie [facility] Body height 2024-02-09 01:45:00 162.6 cm [facility] Body weight 2024-02-09 01:45:00 81.194 kg [facility] BMI 2024-02-09 01:45:00 30.73 kg/m2 [facility] Respiratory rate 2024-02-08 21:00:00 18 /min [facility] Oxygen saturation in Arterial blood by Pulse oximetry 2024-02-08 21:00:00 96 /min [facility] Systolic blood pressure 2024-02-08 20:27:00 164 mm[Hg] [facility] Diastolic blood pressure 2024-02-08 20:27:00 90 mm[Hg] [facility] Heart rate 2024-02-08 20:27:00 83 /min [facility] Body temperature 2024-02-08 19:12:00 36.83 Debbie [facility] Body height 2024-02-08 19:12:00 162.6 cm [facility] Body weight 2024-02-08 19:12:00 81.194 kg [facility] BMI 2024-02-08 19:12:00 30.73 kg/m2 [facility] Heart rate 2024-01-14 12:15:00 98 /min [facility] Body temperature 2024-01-14 12:15:00 36.56 Debbie [facility] Respiratory rate 2024-01-14 12:15:00 14 /min [facility] Oxygen saturation in Arterial blood by Pulse oximetry 2024-01-14 12:15:00 95 /min [facility] Systolic blood pressure 2024-01-14 12:00:00 140 mm[Hg] [facility] Diastolic blood pressure 2024-01-14 12:00:00 90 mm[Hg] [facility] Body height 2024-01-14 10:51:00 162.6 cm [facility] Body weight 2024-01-14 10:51:00 81.194 kg [facility] BMI 2024-01-14 10:51:00 30.73 kg/m2 [facility] Systolic blood pressure 2023-12-23 05:02:00 133 mm[Hg] [facility] Diastolic blood pressure 2023-12-23 05:02:00 84 mm[Hg] [facility] Heart rate 2023-12-23 05:02:00 78 /min [facility] Body temperature 2023-12-23 05:02:00 36.17 Debbie [facility] Respiratory rate 2023-12-23 05:02:00 17 /min [facility] Oxygen saturation in Arterial blood by Pulse oximetry 2023-12-23 05:02:00 91 /min [facility] Body height 2023-12-23 03:45:00 162.6 cm [facility] Body weight 2023-12-23 03:45:00 81.194 kg [facility] BMI 2023-12-23 03:45:00 30.73 kg/m2 [facility] Systolic blood pressure 2023-12-22 02:08:00 143 mm[Hg] [facility] Diastolic blood pressure 2023-12-22 02:08:00 92 mm[Hg] [facility] Heart rate 2023-12-22 02:08:00 81 /min [facility] Respiratory rate 2023-12-22 02:08:00 13 /min [facility] Oxygen saturation in Arterial blood by Pulse oximetry 2023-12-22 02:08:00 95 /min [facility] Body temperature 2023-12-22 01:33:00 36.72 Debbie [facility] Body height 2023-12-22 01:33:00 162.6 cm [facility] Body weight 2023-12-22 01:33:00 81.239 kg [facility] BMI 2023-12-22 01:33:00 30.74 kg/m2 [facility] Systolic blood pressure 2023-11-11 02:00:00 127 mm[Hg] [facility] Diastolic blood pressure 2023-11-11 02:00:00 87 mm[Hg] [facility] Heart rate 2023-11-11 02:00:00 79 /min [facility] Respiratory rate 2023-11-11 02:00:00 20 /min [facility] Oxygen saturation in Arterial blood by Pulse oximetry 2023-11-11 02:00:00 98 /min [facility] Body temperature 2023-11-11 01:31:00 36.28 Debbie [facility] Body height 2023-11-11 01:31:00 162.6 cm [facility] Body weight 2023-11-11 01:31:00 79.379 kg [facility] BMI 2023-11-11 01:31:00 30.04 kg/m2 [facility] Systolic blood pressure 2023-10-27 06:54:00 133 mm[Hg] [facility] Diastolic blood pressure 2023-10-27 06:54:00 94 mm[Hg] [facility] Heart rate 2023-10-27 06:54:00 95 /min [facility] Body temperature 2023-10-27 06:54:00 36.44 Debbie [facility] Respiratory rate 2023-10-27 06:54:00 22 /min [facility] Body height 2023-10-27 06:54:00 162.6 cm [facility] Body weight 2023-10-27 06:54:00 78.472 kg [facility] BMI 2023-10-27 06:54:00 29.70 kg/m2 [facility] Oxygen saturation in Arterial blood by Pulse oximetry 2023-10-27 06:54:00 94 /min [facility] Systolic blood pressure 2022-10-14 19:43:00 111 mm[Hg] [facility] Diastolic blood pressure 2022-10-14 19:43:00 74 mm[Hg] [facility] Heart rate 2022-10-14 19:43:00 98 /min [facility] Body temperature 2022-10-14 19:43:00 36.39 Debbie [facility] Respiratory rate 2022-10-14 19:43:00 22 /min [facility] Oxygen saturation in Arterial blood by Pulse oximetry 2022-10-14 19:43:00 94 /min [facility] Body height 2022-10-14 16:13:00 162.6 cm [facility] Body weight 2022-10-14 16:13:00 81.647 kg [facility] BMI 2022-10-14 16:13:00 30.90 kg/m2 [facility] Systolic blood pressure 2022-03-12 10:13:00 119 mm[Hg] [facility] Diastolic blood pressure 2022-03-12 10:13:00 75 mm[Hg] [facility] Heart rate 2022-03-12 10:13:00 105 /min [facility] Body temperature 2022-03-12 10:13:00 37.28 Debbie [facility] Respiratory rate 2022-03-12 10:13:00 19 /min [facility] Body height 2022-03-12 10:13:00 162.6 cm [facility] Body weight 2022-03-12 10:13:00 99.791 kg [facility] BMI 2022-03-12 10:13:00 37.76 kg/m2 [facility] Oxygen saturation in Arterial blood by Pulse oximetry 2022-03-12 10:13:00 96 /min [facility] Systolic blood pressure 2022-02-20 11:57:00 155 mm[Hg] [facility] Diastolic blood pressure 2022-02-20 11:57:00 88 mm[Hg] [facility] Heart rate 2022-02-20 11:57:00 105 /min [facility] Respiratory rate 2022-02-20 11:57:00 18 /min [facility] Oxygen saturation in Arterial blood by Pulse oximetry 2022-02-20 11:57:00 100 /min [facility] Body temperature 2022-02-20 09:25:00 37 Debbie [facility] Body height 2022-02-20 09:25:00 162.6 cm [facility] Body weight 2022-02-20 09:25:00 96.163 kg [facility] BMI 2022-02-20 09:25:00 36.39 kg/m2 [facility] Respiratory Rate 2024-05-26 13:39:00 16.00 /min Tunde [...] + LACTIC ACID 2024-02-08 20:47:00 Christina Villarreal [facility] XR CHEST 1 VW 2024-02-08 19:47:00 Christina Villarreal [facility] URINALYSIS 2024-02-08 19:36:00 Christina Villarreal [facility] MAGNESIUM 2024-02-08 19:25:00 Christina Villarreal [facility] TROPONIN I 2024-02-08 19:25:00 Christina Villarreal [facility] COMP. METABOLIC PANEL ([id number]) 2024-02-08 19:25:00 Christina Villarreal [facility] ETHANOL 2024-02-08 19:25:00 Christina Villarreal [facility] CBC WITH DIFF 2024-02-08 19:25:00 Christina Villarreal [facility] N-TERMINAL PRO-BNP 2024-02-08 19:25:00 Christina Villarreal [facility] EKG-12 LEAD 2024-01-14 12:00:51 Jac Navarro [facility] LIPASE 2024-01-14 11:11:00 Vasut, Jac J [facility] TROPONIN I 2024-01-14 11:11:00 Jac Navarro [facility] COMP. METABOLIC PANEL ([id number]) 2024-01-14 11:11:00 Jac Navarro [facility] ETHANOL 2024-01-14 11:11[facility]00 [facility] 2024-01-14 11:11:00 Jac Navarro [facility] N-TERMINAL PRO-BNP 2024-01-14 11:11:00 Jac Navarro [facility] COVID-19 (ID NOW RAPID TESTING) 2024-01-14 11:11:00 Jac Navarro [facility] CONSENT/REFUSAL FOR DIAGNOSIS AND TREATMENT 2024-01-14 10:44:32 Doctor Unassigned, [place] [facility] LIPASE 2023-12-23 04:17:00 Cailin Rowe [facility] COMP. METABOLIC PANEL ([id number]) 2023-12-23 04:17:00 Cailin Rowe [facility] CBC WITH DIFF 2023-12-23 04:17:00 Cailin Rowe [facility] URINALYSIS 2023-12-23 04:17:00 Cailin Rowe [facility] CONSENT/REFUSAL FOR DIAGNOSIS AND TREATMENT 2023-12-23 03:40:32 Doctor Unassigned, [place] [facility] CT ABDOMEN PELVIS W CONTRAST 2023-12-22 02:31:05 Quentin Maciel [facility] LIPASE 2023-12-22 01:58:00 Quentin Maciel [facility] COMP. METABOLIC PANEL ([id number]) 2023-12-22 01:58:00 Quentin Maciel [facility] ETHANOL 2023-12-22 01:58:00 Quentin Maciel [facility] CBC WITH DIFF 2023-12-22 01:58:00 Quentin Maciel [facility] PROTHROMBIN TIME / INR 2023-12-22 01:58:00 Wali Maciel [facility] URINALYSIS 2023-12-22 01:58:00 Quentin Maciel [facility] CONSENT/REFUSAL FOR DIAGNOSIS AND TREATMENT 2023-12-22 01:19:14 Doctor Unassigned, [place] [facility] NOTICE OF PRIVACY PRACTICES 2023-11-11 01:24:24 Doctor Unassigned, [place] [facility] CONSENT/REFUSAL FOR DIAGNOSIS AND TREATMENT 2023-11-11 01:23:54 Doctor Unassigned, [place] [facility] COVID-19 (ID NOW RAPID TESTING) 2023-10-27 07:09:00 Jac Navarro [facility] NOTICE OF PRIVACY PRACTICES 2023-10-27 06:49:48 Doctor Unassigned, [place] [facility] CONSENT/REFUSAL FOR DIAGNOSIS AND TREATMENT 2023-10-27 06:47:40 Doctor Unassigned, [place] [facility] CT ABDOMEN PELVIS W CONTRAST 2022-10-14 17:33:00 Quentin Maciel [facility] XR CHEST 1 VW 2022-10-14 17:10:37 Quentin Maciel [facility] TROPONIN I 2022-10-14 16:37:00 Quentin Maciel [facility] COMP. METABOLIC PANEL ([id number]) 2022-10-14 16:37:00 Quentin Maciel [facility] CBC WITH DIFF 2022-10-14 16:37:00 Quentin Maciel [facility] PROTHROMBIN TIME / INR 2022-10-14 16:37:00 Wali Maciel [facility] URINALYSIS 2022-10-14 16:37:00 Quentin Maciel [facility] N-TERMINAL PRO-BNP 2022-10-14 16:37:00 Singer [facility] CONSENT/REFUSAL FOR DIAGNOSIS AND TREATMENT 2022-10-14 15:56:36 Doctor Unassigned, [place] [facility] CONSENT/REFUSAL FOR DIAGNOSIS AND TREATMENT 2022-03-12 10:03:12 Doctor Unassigned, [place] [facility] XR CHEST 1 VW 2022-02-20 09:59:00 Christy Holl[facility] LIPASE 2022-02-20 09:30:00 Christy Holliday [facility] TROPONIN I 2022-02-20 09:30:00 Christy Holliday [facility] COMP. METABOLIC PANEL ([id number]) 2022-02-20 09:30:00 Christy Holliday [facility] CBC WITH DIFF 2022-02-20 09:30:00 Christy [facility] N-TERMINAL PRO-BNP 2022-02-20 09:30:00 Christy Holliday [facility] NOTICE OF PRIVACY PRACTICES 2022-02-20 09:15:02 Doctor Unassigned, [place] [facility] CONSENT/REFUSAL FOR DIAGNOSIS AND TREATMENT 2022-02-20 09:14:47 Doctor Unassigned, [place] [facility] Encounters Start Date/Time End Date/Time Encounter Type Admission Type Attending [facility] Care Department Encounter ID Source 2024-06-06 10:15:00 2024-06-06 10:15:00 Outpatient WENDY BROWNLEE [id number] Maria Elena Alcantara 2024-05-26 13:21:21 2024-05-26 13:21:21 Outpatient SFA SFA [id number] Tunde F Tahir 2024-05-26 00:00:00 2024-05-26 00:00:00 Outpatient Visit [facility] [id number] Tunde Quiñonez Tahir 2024-05-24 08:36:00 2024-05-24 09:39:00 Emergency X MYRNA SANDHU [facility] ERT [id number] [facility] 2024-05-24 08:36:00 2024-05-24 09:39:00 Emergency Myrna Sandhu [facility] 1.2.840.114 350.1.13.10 4.2.7.2.686 [id number] [facility] 2024-04-14 16:30:00 2024-04-14 16:30:00 Outpatient DARIEN LOBO MARIA ELENA [id number] Maria Elena [facility] 2024-04-12 11:00:00 2024-04-12 11:00:00 Outpatient MINNA ORTA [facility] ELENA [id number] [facility] 2024-04-12 11:00:00 2024-04-12 11:00:00 Outpatient KEMWENDY MARIA ELENA BECERRA [id number] [facility] 2024-04-12 00:00:00 2024-04-12 00:00:00 Outpatient SHARATH HALEY MARIA ELENA MARIA ELENA [id number] [facility] 2024-04-05 11:30:00 2024-04-05 11:30:00 Outpatient YAMILDARIEN MARIA ELENA BECERRA [id number] [facility] 2024-04-05 00:00:00 2024-04-05 00:00:00 Outpatient ALFREDONIURKADARIEN Olson MARIA ELENA [id number] [facility] 2024-03-28 00:00:00 2024-03-28 00:00:00 Outpatient ROYADARIEN Olson MARIA ELENA [id number] [facility] 2024-03-15 08:30:00 2024-03-15 08:30:00 Outpatient KEMWENDY MARIA ELENA BECERRA [id number] [facility] 2024-02-17 20:58:00 2024-02-17 21:44:00 Emergency X YARY CAMP [facility] ERT [id number] [facility] 2024-02-17 20:58:00 2024-02-17 21:44:00 Emergency Yary Camp G [facility] 1.2.840.114 350.1.13.10 4.2.7.2.686 [id number] [facility] 2024-02-09 13:10:00 2024-02-09 15:14:00 Emergency E TUNDE QUINTANILLA [facility] [id number] [address] [place] [id number] 2024-02-08 20:38:00 2024-02-08 21:40:00 Emergency X KEISHA DAVENPORT [facility] ERT [id number] [facility] 2024-02-08 20:38:00 2024-02-08 21:40:00 Emergency Keisha Davenport [facility] 1.2.840.114 350.1.13.10 4.2.7.2.686 [id number] [facility] 2024-02-08 14:08:00 2024-02-08 17:06:00 Emergency Christina Villarreal [facility] 1.2.840.114 350.1.13.10 4.2.7.2.686 [id number] [facility] 2024-01-14 04:46:00 2024-01-14 06:23:00 Emergency X TERESSAJAC [facility] ERT [id number] [facility] 2024-01-14 04:46:00 2024-01-14 06:23:00 Emergency Gracielakashmir Jac Flo [facility] 1.2.840.114 350.1.13.10 4.2.7.2.686 [id number] [facility] 2023-12-22 21:51:00 2023-12-22 23:13:00 Emergency X SHERIAMADOUNIVIVIANA [facility] ERT [id number] [facility] 2023-12-22 21:51:00 2023-12-22 23:13:00 Emergency Adesahra Nimassielblade [facility] 1.2.840.114 350.1.13.10 4.2.7.2.686 [id number] [facility] 2023-12-21 19:36:00 2023-12-21 21:52:00 Emergency X QUENTIN MACIEL [facility] ERT [id number] [facility] 2023-12-21 19:36:00 2023-12-21 21:52:00 Emergency Quentin Maciel [facility] 1.2.840.114 350.1.13.10 4.2.7.2.686 [id number] [facility] 2023-11-10 19:29:00 2023-11-10 20:14:00 Emergency X CHRISTY HOLLIDAY [facility] ERT [id number] [facility] 2023-11-10 19:29:00 2023-11-10 20:14:00 Emergency Christy Holliday [facility] 1.2.840.114 350.1.13.10 4.2.7.2.686 [id number] [facility] 2023-10-27 00:49:00 2023-10-27 01:41:00 Emergency X JAC NAVARRO [facility] ERT [id number] [facility] 2023-10-27 00:49:00 2023-10-27 01:41:00 Emergency Jac Navarro [facility] 1.2.840.114 350.1.13.10 4.2.7.2.686 [id number] [facility] 2023-07-15 00:00:00 2023-07-15 00:00:00 Outpatient DARIEN LOBO [id number] Maria Elena [facility] 2023-06-16 11:30:00 2023-06-16 11:30:00 Outpatient DARIEN LOBO [id number] [facility] 2023-05-18 00:00:00 2023-05-18 00:00:00 Outpatient MARIA ELENA CHAN [id number] Maria Elena [facility] 2022-10-14 10:07:00 2022-10-14 14:39:00 Emergency X QUENTIN MACIEL [facility] ERT [id number] [facility] 2022-10-14 10:07:00 2022-10-14 14:39:00 Emergency Quentin Maciel [facility] 1.2.840.114 350.1.13.10 4.2.7.2.686 [id number] [facility] 2022-03-12 05:15:00 2022-03-12 06:41:00 Emergency X CHRISTY HOLLIDAY [facility] ERT [id number] [facility] 2022-03-12 05:15:00 2022-03-12 06:41:00 Emergency Christy Holliday [facility] 1.2.840.114 350.1.13.10 4.2.7.2.686 [id number] [facility] 2022-02-20 04:17:00 2022-02-20 07:16:00 Emergency CHRISTY OZUNA [facility] ERT [id number] [facility] 2022-02-20 04:17:00 2022-02-20 07:16:00 Emergency Christy Holliday [facility] 1.2.840.114 350.1.13.10 4.2.7.2.686 [id number] [facility] 2021-02-03 11:10:00 2021-02-03 11:10:00 Outpatient DENISE CAMPO [facility] [id number] [facility] 2021-01-13 11:20:00 2021-01-13 11:20:00 Outpatient [facility] [id number] [facility] 2020-11-10 08:20:00 2020-11-10 08:20:00 Outpatient KARLEY ESTRADA [facility] [id number] [facility] Results Test Description Test Time Test Comments Results Result Co mments Source Tunde Quiñonez TahirHEMOGLOBIN [id number] 00:00:00* Test Item Value Reference Range Interpretation Comme nts HEMOGLOBIN A1c (test code = 45577) 5.5 % Tunde HaroLIPID [id number] 00:00:00* Test Item Value Reference Range Interpretation Comme nts CHOLESTEROL (test code = 2210) 234 MG/DL TRIGLYCERIDES (test code = 2232) 176 MG/DL HDL CHOLESTEROL (test code = 2220) 80 MG/DL CALC LDL CHOL (test code = 2237) 125 MG/DL RISK RATIO LDL/HDL (test cod e = 2238) 1.56 RATIO Tunde HaroCBC W/AUTO [id number] 00:00:00* Test Item Value Reference Range Interpretation [...] ABS NUCLEATED RBCS (test cod e = 42380) 0.00 K/UL Tunde [id number] 21:47:04* Test Item Value Reference Range Interpretation Comme nts ALCOHOL (test code = 3581096454) 329 mg/dL LOUISE (test code = LOUISE) <10 [id number] Toxic>100 Depression of CUPROUS CHLORIDE HELPER>400 [facility]orted [facility] + Lactic [id number] 20:52:47* Test Item Value Reference Range Interpretation Comme nts PH (test code = 2) 7.39 7.35-7.45 PCO2 (test code = 0983938887) 42 35-45 PO2 (test code = 2081401304) 76 80-100 L HCO3 (test code = 7416373280) 25 22-26 BE (test code = 8458958973) -0.1 -3.0-3.0 THB (test code = 2795669906) 14.3 g/dL 13.5-18.0 %O2HB (test code = 1205938019) 85.8 % 94.0-99.0 L %COHB ART (test code = 4461688891) 9.0 % 0.0-1.5 H %METHB ART (test code = 5515475829) 0.3 % 0.4-1.5 L VOL%O2 ART (test code = 6357438673) 17.3 % 15.0-23.0 NA (test code = 8288888942) 140 mmol/L 135-145 K+ (test code = 1220764229) 4.1 mmol/L 3.5-5.0 AC CA IONZ (test code = 8367188678) 4.50 mg/dL 4.50-5.30 GLUCOSE (test code = 1590047896) 105 mg/dL 70-110 LACTIC ACID (test code = 3783570306) 2.60 mmol/L 0.50-2.20 H Lab Interpretation (test cod e = 94553-6) Abnormal [facility] [id number] 20:34:14* Test Item Value Reference Range Interpretation Comme nts TROPONIN I (test code = 2759614841) 0.008 ng/mL <=0.034 LOUISE (test code = [...] of biotin. Lab Interpretation (test code = 53403-5) Normal [facility] [id number] 20:31:35* Test Item Value Reference Range Interpretation Comme nts NT-proBNP (test code = 40589-3) 188 pg/mL <=125 LOUISE (test code = LOUISE) Result Indeterminate-Consid er causes of NT-proBNP elevation other than Heart failure such as acute coronary syndrome, pulmonary embolism, pulmonary hypertension, sepsis, stroke, and renal dysfunction. Lab Interpretation (test code = 33348-2) Abnormal [facility] Met[facility] Panel (77180)2024-02-08 20:21:10* Test Item Value Reference Range Interpretation Comme nts NA (test code = 1974640456) 135 mmol/L 135-145 K (test code = 5741511368) 4.5 mmol/L 3.5-5.0 CL (test code = 8331242505) 100 mmol/L 98-108 CO2 TOTAL (test code = 4244986266) 22 mmol/L 23-31 L AGAP (test code = 0788395860) 13 2-16 BUN (test code = 8872195049) 8 mg/dL 7-23 GLUCOSE (test code = 4380010569) 97 mg/dL 70-110 CREATININE (test code = 2160-0) 0.65 mg/dL 0.60-1.25 TOTAL BILI (test code = 1788722025) 0.4 mg/dL 0.1-1.1 CALCIUM (test code = 2428291170) 9.4 mg/dL 8.6-10.6 T PROTEIN (test code = 6931336047) 8.2 g/dL 6.3-8.2 ALBUMIN (test code = 0151216342) 4.7 g/dL 3.5-5.0 ALK PHOS (test code = 2774150914) 76 U/L 34-122 ALTv (test code = 1742-6) 33 U/L 5-50 AST(SGOT) (test code = 2735925513) 54 U/L 13-40 H eGFR (test code = 60101-6) 111.3 mL/min/1.73m2 CKD-EPI eGFR (2020). Assuming creatinine has been stable day-to-day for at least three months, the eGFR indicates Category G1 (>= 90 mL/min/1.73 m2) Lab Interpretation (test code = 72893-0) Abnormal [facility]esium2024-04-01 20:21:10* Test Item Value Reference Range Interpretation Comme nts MAGNESIUM (test code = 6849924630) 2.1 mg/dL 1.7-2.4 Lab Interpretation (test cod e = 68152-9) Normal [facility] 1 [id number] 20:07:21EXAM: XR CHEST 1 VW COMPARISON: 01/14/2024 HISTORY: sob FINDINGS: Lungs: Slightly hyperexpanded lungswith subtle progression of interstitialprominence. Trace pleural effusions could be present. Heart/Mediastinum: Stable cardiomegaly. Bones and soft tissues: No osseous abnormality is visualized.[facility] Cbc with [id number] 20:04:26* Test Item Value Reference Range Interpretation [...] 33.8 g/dL 31.2-35.0 RDW-SD (test code = 00777-7) 50.5 fL 38.5-51.6 RDW-CV (test code = 788-0) 14.3 % 12.1-15.4 PLT (test code = 777-3) 206 150-328 MPV (test code = 91918-4) 9.1 fL 9.8-13.0 L NRBC/100 WBC (test code = 2579364548) 0.0 0.0-10.0 NRBC x10^3 (test code = 4963966163) See_Comment [Automated messa ge] The system which generated this result transmitted reference range: 10*3/?L. The reference range was not used to interpret this result as normal/abnormal. GRAN MAT (NEUT) % (test code = 770-8) 81.0 % IMM GRAN % (test code = 9932620794) 1.20 % LYMPH % (test code = 736-9) 10.9 % MONO % (test code = 5905-5) 6.8 % EOS % (test code = 713-8) 0.0 % BASO % (test code = 706-2) 0.1 % GRAN MAT x10^3(ANC) (test code = 6041332148) 9.31 10*3/uL 1.99-6.95 H IMM GRAN x10^3 (test code = 2778710287) 0.14 10*3/uL 0.00-0.06 H LYMPH x10^3 (test code = 731-0) 1.25 10*3/uL 1.09-3.23 MONO x10^3 (test code = 742-7) 0.78 10*3/uL 0.36-1.02 EOS x10^3 (test code = 711-2) 0.06-0.53 L BASO x10^3 (test code = 704-7) 0.01-0.09 Lab Interpretation (test code = 80760-2) [facility] (35928[facility]2023-12-23 04:53:26* Test Item Value Reference Range Interpretation Comme nts NA (test code = 3340989123) 135 mmol/L 135-145 K (test code = 5645798169) 3.2 mmol/L 3.5-5.0 L CL (test code = 3420249573) 104 mmol/L 98-108 CO2 TOTAL (test code = 2932043520) 23 mmol/L 23-31 AGAP (test code = 3973681413) 8 2-16 BUN (test code = 8312163527) 11 mg/dL 7-23 GLUCOSE (test code = 2962845931) 82 mg/dL 70-110 CREATININE (test code = 2160-0) 0.64 mg/dL 0.60-1.25 TOTAL BILI (test code = 0009706286) 0.5 mg/dL 0.1-1.1 CALCIUM (test code = 2988213343) 8.8 mg/dL 8.6-10.6 T PROTEIN (test code = 7392280471) 6.7 g/dL 6.3-8.2 ALBUMIN (test code = 5776318552) 4.1 g/dL 3.5-5.0 ALK PHOS (test code = 7980525153) 46 U/L 34-122 ALTv (test code = 1742-6) 21 U/L 5-50 AST(SGOT) (test code = 8604245898) 43 U/L 13-40 H eGFR (test code = 44507-6) 111.8 mL/min/1.73m2 CKD-EPI eGFR (2020). Assuming creatinine has been stable day-to-day for at least three months, the eGFR indicates Category G1 (>= 90 mL/min/1.73 m2) Lab Interpretation (test code = 34920-2) [facility]normal [facility] 04:53:26* Test Item Value Reference Range Interpretation Comme nts LIPASE (test code = 3809659477) 105 U/L 0-220 Lab Interpretation (test cod e = 40580-4) Normal [facility]CBC WITH [id number] 04:34:24* Test Item Value Reference Range Interpretation [...] 33.0 g/dL 31.2-35.0 RDW-SD (test code = 03077-8) 50.9 fL 38.5-51.6 RDW-CV (test code = 788-0) 13.7 % 12.1-15.4 PLT (test code = 777-3) 232 150-328 MPV (test code = 00856-7) 8.7 fL 9.8-13.0 L NRBC/100 WBC (test code = 6136948899) 0.0 0.0-10.0 NRBC x10^3 (test code = 6204145900) See_Comment [Automated [employer]] The system which generated this result transmitted reference range: 10*3/?L. The reference range was not used to interpret this result as normal/abnormal. GRAN MAT (NEUT) % (test code = 770-8) 58.8 % IMM GRAN % (test code = 5153933888) 0.90 % LYMPH % (test code = 736-9) 27.8 % MONO % (test code = 5905-5) 10.5 % EOS % (test code = 713-8) 1.3 % BASO % (test code = 706-2) 0.7 % GRAN MAT x10^3(ANC) (test code = 5971886691) 5.68 10*3/uL 1.99-6.95 IMM GRAN x10^3 (test code = 7255126007) 0.09 10*3/uL 0.00-0.06 H LYMPH x10^3 (test code = 731-0) 2.69 10*3/uL 1.09-3.23 MONO x10^3 (test code = 742-7) 1.02 10*3/uL 0.36-1.02 EOS x10^3 (test code = 711-2) 0.13 10*3/uL 0.06-0.53 BASO x10^3 (test code = 704-7) 0.07 10*3/uL 0.01-0.09 Lab Interpretation (test code = 83948-0) Abnormal [facility] HospitalCT [facility]BDOMEN PELVIS W [id number] 03:32:43Exam: CT Abdomen and Pelvis With Contrast, [...] acute osseous abnormality.Soft tissues: Small fat-containing inguinal hernias.[facility] HospitalEthanol2024-02-13 02:32:24* Test Item Value Reference Range Interpretation Comme nts ALCOHOL (test code = 0564390963) 117 mg/dL LOUISE (test code = LOUISE) <10 Totziwaz92-648 Toxic>100 Depression of CUPROUS CHLORIDE HELPER>400 Fatalities Reported [facility]Comp. Met[facility] Panel (82348)2023-12-22 02:31:43* Test Item Value Reference Range Interpretation Comme nts NA (test code = 4497558698) 133 mmol/L 135-145 L K (test code = 2384521362) 3.3 mmol/L 3.5-5.0 L CL (test code = 4754014498) 102 mmol/L 98-108 CO2 TOTAL (test code = 7724762187) 25 mmol/L 23-31 AGAP (test code = 3443289732) 6 2-16 BUN (test code = 7932313765) 11 mg/dL 7-23 GLUCOSE (test code = 5848875365) 75 mg/dL 70-110 CREATININE (test code = 8420296908) 0.51 mg/dL 0.60-1.25 L TOTAL BILI (test code = 8099521523) 0.5 mg/dL 0.1-1.1 CALCIUM (test code = 3090419879) 8.9 mg/dL 8.6-10.6 T PROTEIN (test code = 5125819593) 7.2 g/dL 6.3-8.2 ALBUMIN (test code = 0868646523) 4.5 g/dL 3.5-5.0 ALK PHOS (test code = 6662447996) 46 U/L 34-122 ALTv (test code = 1742-6) 15 U/L 5-50 AST(SGOT) (test code = 1831854283) 24 U/L 13-40 eGFR (test code = 32971-5) 119.7 mL/min/1.73m2 CKD-EPI eGFR (2020). Assuming creatinine has been stable day-to-day for at least three months, the eGFR indicates Category G1 (>= 90 mL/min/1.73 m2) Lab Interpretation (test code = 92264-9) Abnormal [facility] HospitalLipase2024-02-13 02:31:43* Test Item Value Reference Range Interpretation Comme nts LIPASE (test code = 9855825820) 121 U/L 0-220 Lab Interpretation (test cod e = 79516-8) Normal [facility] HospitalProthrombin Time / [id number] 02:21:02* Test Item Value Reference Range Interpretation Comme nts PROTIME PATIENT (test code = 5964-2) 10.5 10.1-12.6 INR (test code = 6301-6) 0.9 Normal INR <1.1; Warfarin Therapeutic range 2.0 to 3.0 or 2.5 to 3.5, depending upon the indications. Lab Interpretation (test code = 90851-4) Normal [facility] HospitalCbc with Chyx8613-62-51 02:14:04* Test Item Value Reference Range Interpretation [...] 34.0 g/dL 31.2-35.0 RDW-SD (test code = 36438-3) 49.1 fL 38.5-51.6 RDW-CV (test code = 788-0) 13.5 % 12.1-15.4 PLT (test code = 777-3) 260 150-328 MPV (test code = 39831-0) 8.7 fL 9.8-13.0 L NRBC/100 WBC (test code = 8480989688) 0.0 0.0-10.0 NRBC x10^3 (test code = 1460945615) See_Comment [Automated messa ge] The system which generated this result transmitted reference range: 10*3/?L. The reference range was not used to interpret this result as normal/abnormal. GRAN MAT (NEUT) % (test code = 770-8) 64.3 % IMM GRAN % (test code = 8852787854) 0.90 % LYMPH % (test code = 736-9) 24.2 % MONO % (test code = 5905-5) 9.1 % EOS % (test code = 713-8) 0.7 % BASO % (test code = 706-2) 0.8 % GRAN MAT x10^3(ANC) (test code = 0473846418) 8.73 10*3/uL 1.99-6.95 H IMM GRAN x10^3 (test code = 3029243929) 0.12 10*3/uL 0.00-0.06 H LYMPH x10^3 (test code = 731-0) 3.28 10*3/uL 1.09-3.23 H MONO x10^3 (test code = 742-7) 1.23 10*3/uL 0.36-1.02 H EOS x10^3 (test code = 711-2) 0.10 10*3/uL 0.06-0.53 BASO x10^3 (test code = 704-7) 0.11 10*3/uL 0.01-0.09 H Lab Interpretation (test code = 78373-9) Abnormal [facility] HospitalTROPONIN [id number] 10:16:22* Test Item Value Reference Range Interpretation Comments TROPONIN I (test code = 8170279577) 0.007 ng/mL See_Comment [Automated message] The system [...] of biotin. Lab Interpretation (test code = 73445-6) Normal [facility] HospitalN-TERMINAL [id number] 10:13:01* Test Item Value Reference Range Interpretation Comme nts NT-proBNP (test code = 8793133651) 52 pg/mL See_Comment [Automated message] The system which generated this result transmitted reference range: <=125. The reference range was not used to interpret this result as normal/abnormal. LOUISE (test code = LOUISE) Biotin has been reported to cause a negative bias, interpret results relative to patient's use of biotin. Lab Interpretation (test code = 33900-0) Normal [facility] HospitalCOMP. MET[facility]OLIC PANEL (80043)2022-02-20 10:04:02* Test Item Value Reference Range Interpretation Comme nts NA (test code = 0956058250) 137 mmol/L 135-145 K (test code = 6491541892) 3.6 mmol/L 3.5-5.0 CL (test code = 5009725285) 99 mmol/L 98-108 CO2 TOTAL (test code = 7870064785) 25 mmol/L 23-31 AGAP (test code = 0601890715) 2-16 BUN (test code = 7519992072) 6 mg/dL 7-23 L GLUCOSE (test code = 6634652974) 88 mg/dL 70-110 CREATININE (test code = 0655080727) 0.55 mg/dL 0.60-1.25 L TOTAL BILI (test code = 9075478605) 0.8 mg/dL 0.1-1.1 CALCIUM (test code = 7189537710) 8.9 mg/dL 8.6-10.6 T PROTEIN (test code = 9623455182) 7.5 g/dL 6.3-8.2 ALBUMIN (test code = 9614889167) 4.8 g/dL 3.5-5.0 ALK PHOS (test code = 7726210516) 113 U/L 34-122 ALTv (test code = 1742-6) 84 U/L 5-50 H AST(SGOT) (test code = 5282327034) 107 U/L 13-40 H eGFR (test code = 1266254133) mL/min/1.73m2 LOUISE (test code = LOUISE) Association [...] imaging tests). Lab Interpretation (test code = 85282-6) Abnormal [facility] HospitalLIPASE, [id number] 10:03:21* Test Item Value Reference Range Interpretation Comme nts LIPASE (test code = 5959581219) 193 U/L 0-220 Lab Interpretation (test cod e = 09392-6) Normal [facility] HospitalCBC WITH [id number] 09:39:17* Test Item Value Reference Range Interpretation Comme nts WBC (test code = 6690-2) See_Comment [Automated [employer]] The system which generated this result transmitted reference range: 4.20 - 10.70 10*3/?L. The reference range was not used to interpret this result as normal/abnormal. RBC (test code = 789-8) See_Comment [[employer]ated [employer]] The system which generated this result transmitted [...] g/dL 31.2-35.0 H RDW-SD (test code = 08852-5) 44.4 fL 38.5-51.6 RDW-CV (test code = 788-0) 11.9 % 12.1-15.4 L PLT (test code = 777-3) See_Comment [[employer]ated [employer]] The system which generated this result transmitted reference range: 150 - 328 10*3/?L. The reference range was not used to interpret this result as normal/abnormal. MPV (test code = 01173-0) 9.2 fL 9.8-13.0 L NRBC/100 WBC (test code = 6199740654) See_Comment [Automated me ssage] The system which generated this result transmitted reference range: 0.0 - 10.0 /100 WBCs. The reference range was not used to interpret this result as normal/abnormal. NRBC x10^3 (test code = 6170379258) <0.01 See_Comment [Automated messa ge] The system which generated this result transmitted reference range: 10*3/?L. The reference range was not used to interpret this result as normal/abnormal. GRAN MAT (NEUT) % (test code = 770-8) 69.9 % IMM GRAN % (test code = 5946640083) 1.50 % LYMPH % (test code = 736-9) 18.9 % MONO % (test code = 5905-5) 7.0 % EOS % (test code = 713-8) 1.9 % BASO % (test code = 706-2) 0.8 % GRAN MAT x10^3(ANC) (test code = 2387514323) 7.15 10*3/uL 1.99-6.95 H IMM GRAN x10^3 (test code = 3407670571) 0.15 10*3/uL 0.00-0.06 H LYMPH x10^3 (test code = 731-0) 1.93 10*3/uL 1.09-3.23 MONO x10^3 (test code = 742-7) 0.72 10*3/uL 0.36-1.02 EOS x10^3 (test code = 711-2) 0.19 10*3/uL 0.06-0.53 BASO x10^3 (test code = 704-7) 0.08 10*3/uL 0.01-0.09 Lab Interpretation (test code = 93360-1) Abnormal [facility] Notes Date/Time Note Provider Source Tunde Murcia [facility]2024-07-16 08:34:34 Patient here for a mass on his forehead, states it has been there for year and patient attempted to open it with a needle. Valentino C[facility]Oxqezi7357-35-89 21:43:52 No answer in lobby. Angy Turner [facility] CenterBwleoo4579-61-83 21:42:10 Pt's blood pressure cuff and pulse ox found lying on chair. Called for patient in lobby 2 times, no answer. No one in lobby. Sierra Samaniego [place] 234564-04-10 21:41:09 Pt not in lobby or in room. No answer in lobby. [facility] 21:14:29 Pt not in FT01- and no answer in lobby. [place] 370744-04-10 20:48:50 Pt arrives ambulatory to ED c/o SOB, right upper abdominal pain, and left leg and hip pain. Pt states that he has been on prednisone for about 5 yrs which had given him osteoporosis which is causing his leg pain. Reports hx of COPD, o2 is generally @ 91 he says. Leah Lizama [facility] CenterKgvedv9887-03-31 21:37:56 Pt left AMA Kylie Foster [facility] CenterYhdkcu4138-43-48 21:32:00 Patient leaving AMA after self removing [...] ambulatory with steady gait, appears in NAD T [place] 370744-04-01 20:54:38 Pt states he uses O2 at home, portable O2 is broken [place] 556434-04-01 20:51:11 Pt ambulates with cane [place] 556434-04-01 20:43:13 CC: Pt arrives SOB after leaving AMA [...] 3 BC powders and drank 3 beers." Leah King [facility] CenterKgosrg2191-08-87 17:04:05 Patient walked to the nurses station [...] department with a steady gait. Allison Zhang [place] 234564-04-01 14:23:02 Pt ambulates with a cane Kylie Foster [place] 234564-04-01 14:13:15 Pt has taken 8-packets of BC [...] that helps." Face is flushed. Hali Aviles [place] 234564-03-07 06:16:25 Pt given printed and verbal discharge [...] to follow up with pcp and or healthcare risk control consultant Advised to seek medical attention for new/prolonged/worsening of symptoms, No adverse reaction to meds given in ER noted upon discharge PIV d'cd, dressing to site, catheter in tact. Awake, alert oriented, resp reg unlabored, skin w/d, pt leaving in no apparent distress, [facility]2024-03-07 04:49:43 CC: "My COPD is acting [...] difficulty, amb with steady gait ON King RN[place] 370744-03-07 04:43:00 Associated Order(s): EKG-12 Lead ROUTINE ONCE Pre-Procedure Diagnose(s): Chest pain, unspecified type Post-Procedure Diagnose(s): Chest pain, unspecified type [facility] Emergency Department Note Patient Name: Randy Briones Date of : 1970 53 year old male Treatment Room: OK1/[facility] Primary Care Physician: Adrianna Michaels Patient Escorted by: Family [5] Mode of Arrival: Personal means [1] EMS Treatment Prior to ED 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 METABOLIC PANEL (06797) - Abnormal Result Value Ref Range NA [...] 1 VW TROPONIN I COMP. METABOLIC PANEL (41546) LIPASE, SERUM CBC WITH DIFF N-Terminal Pro-Bnp [...] Screening Begins JAC NAVARRO MD -- 01/14/24 0510 First Provider Evaluation JAC NAVARRO MD -- ED COURSE Diagnosis/Impression as of 01/14/24 0605 Chest pain, unspecified type Bronchitis Procedures: EKG-12 Lead ROUTINE ONCE Date/Time: 01/14/2024 5:24 AM Performed by: Jac Navarro MD Authorized by: Jac Navarro MD ECG interpreted by ED Physician in the absence of a healthcare risk control consultant: yes Previous ECG: Previous ECG: Compared to [...] signed by: Jac Navarro MD 01/14/24 0600 [facility]2024-02-13 23:12:16 Pt given printed and verbal [...] with steady gait, in no apparent distress, [facility] Mary Magaña [place] 234564-02-13 21:41:55 Pt arrives ambulatory to ED reporting bleeding with stools and 10/10 abdominal pain. States he was here last night but had to leave before receiving results d/t having to work. Says the pain became worse so he came back in. IDER RELATIONS CONSULTANT Leah Lizama [place] 234564-02-12 21:31:00 Patient leaving AMA,discussed risks of leaving [...] gait, appears in no distress. ON Magaña [place] 14532-02-12 21:30:00 Pt wished to leave AMA. Pt states " yall were wonderful but 3am come real early." [facility]2024-02-12 21:26:22 Pt asking to go outside and smoke, wants to go home and eat. Pt educated on risks of leaving AMA. Provider informed pt is in pain. ON King [place] 234564-02-12 19:31:50 Pt arrived ambulatory with complaints of bright red rectal bleeding and generalized abdominal pain this afternoon. Pt states his stool was normal consistency but continuous bright red blood. Denies this happening before. 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 States he vomits all the time but not something new today. IDER RELATIONS CONSULTANT Gabi Esqueda [facility] CenterQctdxv0190-01-34 20:13:39 Pt requesting to leave AMA. ERP notified. Pt counseled to remain, risks of leaving AMA including discussed with pt. Pt continued to decline further ER evaluation at this time. AMA papers signed, witnessed, and placed on patient's chart. Pt left ambulatory. VS stable, no ataxia noted, GCS 15, A&Ox4. ON Medrano [facility] CenterUzkojf2327-00-25 19:30:29 Patient arrived to ED c/o SOB and COPD exacerbation. Symptoms started this morning. Patient wears 3L NC at home. Patient is a smoker. Patient states having the chills, diarrhea, and vomiting. States having sharp pains in chest from coughing. ON Gomez [facility]
[2024-07-16 18:18] LABS: Specific Gravity < 1.005 (1.005-1.030); Sqamous Epithelial None Seen /HPF (None Seen); Urine Bacteria None Seen /HPF (<20); Urine Bilirubin NEGATIVE (Negative); Urine Blood Negative (Negative); Urine Clarity Clear (Clear); Urine Color Colorless (Yellow); Urine Culture Reflex Order NOT NEEDED; Urine Glucose 2+ (Negative); Urine Ketones NEGATIVE (Negative); Urine Microscopic Reflex YN ORDER UMIC; Urine Nitrite NEGATIVE (Negative); Urine Protein NEGATIVE (Negative); Urine RBC None Seen /HPF (None Seen); Urine Urobilinogen Normal (Normal); Urine WBC None Seen /HPF (<5); Urine pH 5.5 (5.0-7.0)
[2024-07-16 18:23] LABS: Arterial Blood Carboxyhemoglob 7.5 % (0-1.5); Blood Gas Oxyhemoglobin 89.7 % (94-97); Blood Gas THB 13.4 g/dl (12-18); Blood O2 Saturation 98.8 % (92-98.5)
[2024-07-16 18:25] LABS: Barbiturates NEGATIVE (NEGATIVE); Benzodiazepines NEGATIVE (NEGATIVE); Cocaine NEGATIVE (NEGATIVE); METHAMPHETAM NEGATIVE (NEGATIVE); Methadone NEGATIVE (NEGATIVE); Opiates NEGATIVE (NEGATIVE); Phencyclidine NEGATIVE (NEGATIVE); THC Cannibis NEGATIVE (NEGATIVE)
--- NOTE | 2024-07-16 18:28 | ER ---
Nurse's Notes [facility] Name: Randy Briones Age: 54 yrs Sex: Male : 1970 Arrival Date: 07/16/2024 Time: 17:39 Bed 14 Private MD: Diagnosis: Tobacco abuse counseling;Tobacco use;Alcohol abuse;Alcohol abuse with intoxication;COPD/ Chronic obstructive pulmonary disease with (acute) exacerbation Presentation: 07/16 17:43 Chief complaint: EMS states: toned out for SOB, tripod position when EMS arrived, resp me1 rate mid 30s. Patient had been drinking and reported doing some crack cocaine. c/o abdominal pain with nausea. CPAP on arrival to ER. 22g LFA with NS infusing, Solumedrol 125 mg IV, phenergan 12.5 g IV given and an A\T\A neb tx administered by EMS. Coronavirus screen: Vaccine status: Patient reports being unvaccinated. Ebola Screen: No symptoms or risks identified at this time. Initial Sepsis Screen: Does the patient meet any 2 criteria? Systolic BP < 90 mmHg. No. Patient's initial sepsis screen is negative. Does the patient have a suspected source of infection? No. Patient's initial sepsis screen is negative. Risk Assessment: Do you want to hurt yourself or someone else? Patient reports no desire to harm self or others. Onset of symptoms was July 16, 2024. Care prior to arrival: Medication(s) given: Normal saline infusion, 200 ml Phenergan, 12.5 mg, solumedrol 125mg IV IV initiated. 22 GA, in the left forearm, Med neb given. Oxygen administered. via CPAP or BiPAP. 17:43 Method Of Arrival: EMS: [facility] me1 17:43 Acuity: CANDACE 2 me1 Triage Assessment: 17:43 General: Appears uncomfortable, unkempt, well developed, Behavior is cooperative, me1 appropriate for age, anxious, Reports SOB, abdominal pain and nausea. Pain: Complains of pain in abdomen Pain does not radiate. Pain currently is 10 out of 10 on a pain scale. Quality of pain is described as crampy, sharp, Pain began suddenly, Is continuous. EENT: No signs and/or symptoms were reported regarding the EENT system. Neuro: Level of Consciousness is awake, alert, obeys commands, Oriented to person, place, time, situation, Appropriate for age. Cardiovascular: Patient's skin is warm and dry. Respiratory: Airway is patent Respiratory effort is labored, Respiratory pattern is regular, symmetrical, on CPAP. GI: Reports lower abdominal pain, upper abdominal pain, nausea, vomiting. : No signs and/or symptoms were reported regarding the genitourinary system. Derm: Skin is intact, is healthy with good turgor, Skin is pink, warm \T\ dry. Musculoskeletal: No signs and/or symptoms reported regarding the musculoskeletal system. Historical: - Allergies: 17:41 Lisinopril; ll1 - PMHx: 17:41 Alcoholism; COPD; Hepatitis B (Hypertension); home 02 3LNC PRN; Hypertension; ll1 Osteoporosis; - PSHx: 17:41 Amputation of left index finger; ll1 - Immunization history:: Adult Immunizations up to date. - Infectious Disease History:: Denies. - Social history:: Smoking status: Patient reports the use of cigarette tobacco products, smokes two packs cigarettes per day. Screenin:57 [facility] ED Fall Risk Assessment (Adult) History of falling in the last 3 months, me1 including since admission No falls in past 3 months (0 pts) Confusion or Disorientation No (0 pts) Intoxicated or Sedated Yes (3 pts) Impaired Gait Yes (1 pt) Mobility Assist Device Used No (0 pt) Altered Elimination No (0 pt) Score/Fall Risk Level 3 or more points = High Risk Maintained a safe environment, Hourly rounding (assess needs \T\ fall precautionary measures) done, Used ambulatory aids as needed (educated on \T\ assisted with). Abuse screen: Denies threats or abuse. Nutritional screening: No deficits noted. Tuberculosis screening: No symptoms or risk factors identified. Assessment: 17:57 General: See triage assessment. . me1 Vital Signs: 17:43 BP 147 / 89; Pulse 102; Resp 24; Temp 98.4; Pulse Ox 93% on CPAP; Pain 10/10; me1 17:43 Pain Scale: Adult la1 ED Course: 17:41 Patient arrived in ED. ll1 17:41 Arm band placed on Patient placed in an exam room, on a stretcher. ll1 17:43 Radha Bliss RN is Primary Nurse. me1 17:46 Bg Briones MD is Attending Physician. [facility] 17:54 Triage completed. me1 17:57 Patient has correct armband on for positive identification. Bed in low position. Call me1 light in reach. Side rails up X2. Provided Education on: POC. Verbalized understanding. . Client placed on continuous cardiac and pulse oximetry monitoring. NIBP monitoring applied. Pulse ox on. NIBP on. 17:57 No provider procedures requiring assistance completed. Maintain EMS IV. Dressing me1 intact. Good blood return noted. Site clean \T\ dry. Gauge \T\ site: 22g LFA. Flushed with 10 mL NS. 18:21 Initial lab(s) drawn, by la, sent to lab. First set of blood cultures drawn by la, [facility] Urine collected: clean catch specimen, clear. 18:23 Lex Potter MD is Hospitalizing Provider. [facility] 18:24 Basic Metabolic Panel Sent. [facility] [place] 18:24 CBC with Diff Sent. [facility] [place] [place] 18:24 LFT's Sent. [facility] [place] [place] 18:24 Magnesium Sent. la1 18:24 NT PRO-BNP Sent. la1 18:24 PT-INR Sent. la1 18:24 Troponin HS Sent. [facility] [place] [place] 18:25 Lactate w/ 2H reflex if indic. Sent. [facility] [place] [place] 18:25 Blood Culture Adult (2) Sent. [facility] [place] [place] 18:25 Inserted saline lock: 22 gauge in right antecubital area, using aseptic technique. [facility] [place] [place] 18:25 ABG Sent. [facility] [place] [place] 18:37 Second set of blood cultures drawn by la. la1 Administered Medications: 18:43 Drug: Famotidine IVP 20 mg IVP once; dilute with 10 mL 0.9% NaCl; give over 2 minutes [facility] [place] Route: IVP; Site: left forearm; 18:44 Drug: Thiamine IV 100 mg IV at bolus once Route: IV; Rate: bolus; Site: right me1 antecubital; 18:44 Drug: Banana Bag - (Multivitamin IV 1 amp, NS 0.9% IV 1000 ml, Thiamine IV 100 mg, me1 foLIC Acid IVPB 1 mg) IV at 250 ml/hr once Route: IV; Rate: 250 ml/hr; Site: right antecubital; 18:44 Not Given (given by EMS. Verbal order to cancell): [id number] mg IVP once [facility] [place] 18:44 Drug: Magnesium Sulfate IVPB 2 grams IVPB once over 2 hrs Route: IVPB; Infused Over: 2 me1 hrs; Site: left forearm; 18:44 Drug: Levalbuterol Inhalation 3.75 mg Inhalation once Route: Inhalation; me1 18:44 Drug: Ipratropium Inhalation Aerosol 0.5 mg Inhalation once Route: Inhalation; me1 Medication: 17:57 VIS not applicable for this client. la1 Outcome: 18:27 Decision to Hospitalize by Provider. [facility] 18:53 Patient left the ED. [facility] Signatures: Bg Briones MD MD cha Lewis, Lynsay, RN RN 1 Radha Bliss, BRIGETTE RN la1
--- NOTE | 2024-07-16 18:28 | EDPHYS ---
Physician Documentation [facility] Name: Randy Briones Age: 54 yrs Sex: Male : 1970 Arrival Date: 07/16/2024 Time: 17:39 Bed 14 Private MD: ED Physician Bg Briones HPI: 07/16 17:49 This 54 yrs old Male presents to ER via Unassigned with complaints of akash Shortness Of Breath, Abdominal Pain. 17:49 The patient has shortness of breath at rest, with light activity. Onset: The akash symptoms/episode began/occurred 1 day(s) ago. Duration: The symptoms are continuous, and are steadily getting worse. The patient's shortness of breath is aggravated by coughing, light activity, supine position. Associated signs and symptoms: Pertinent positives: non-productive cough, nausea. Severity of symptoms: At their worst the symptoms were moderate in the emergency department the symptoms are unchanged. The patient has experienced similar episodes in the past, multiple times. Historical: - Allergies: 17:41 Lisinopril; ll1 - PMHx: 17:41 Alcoholism; COPD; Hepatitis B (Hypertension); home 02 3LNC PRN; Hypertension; ll1 Osteoporosis; - PSHx: 17:41 Amputation of left index finger; ll1 - Immunization history:: Adult Immunizations up to date. - Infectious Disease History:: Denies. - Social history:: Smoking status: Patient reports the use of cigarette tobacco products, smokes two packs cigarettes per day. ROS: 17:50 Constitutional: Negative for fever, chills, and weight loss, Eyes: Negative for injury, akash pain, redness, and discharge, ENT: Negative for injury, pain, and discharge, Neck: Negative for injury, pain, and swelling, Cardiovascular: Negative for chest pain, palpitations, and edema, Abdomen/GI: Negative for abdominal pain, nausea, vomiting, diarrhea, and constipation, Back: Negative for injury and pain, : Negative for injury, bleeding, discharge, and swelling, MS/Extremity: Negative for injury and deformity, Skin: Negative for injury, rash, and discoloration, Neuro: Negative for headache, weakness, numbness, tingling, and seizure, Psych: Negative for depression, anxiety, suicide ideation, homicidal ideation, and hallucinations, Allergy/Immunology: Negative for hives, rash, and allergies, Endocrine: Negative for neck swelling, polydipsia, polyuria, polyphagia, and marked weight changes, Hematologic/Lymphatic: Negative for swollen nodes, abnormal bleeding, and unusual bruising, 17:50 Respiratory: Positive for cough, shortness of breath, wheezing, inspiratory, expiratory, Exam: 17:50 Constitutional: This is a well developed, well nourished patient who is awake, alert, akash and in no acute distress. Head/Face: Normocephalic, atraumatic. Eyes: Pupils equal round and reactive to light, extra-ocular motions intact. Lids and lashes normal. Conjunctiva and sclera are non-icteric and not injected. Cornea within normal limits. Periorbital areas with no swelling, redness, or edema. ENT: Nares patent. No nasal discharge, no septal abnormalities noted. Tympanic membranes are normal and external auditory canals are clear. Oropharynx with no redness, swelling, or masses, exudates, or evidence of obstruction, uvula midline. Mucous membranes moist. Neck: Trachea midline, no thyromegaly or masses palpated, and no cervical lymphadenopathy. Supple, full range of motion without nuchal rigidity, or vertebral point tenderness. No Meningismus. Chest/axilla: Normal chest wall appearance and motion. Nontender with no deformity. No lesions are appreciated. Abdomen/GI: Soft, non-tender, with normal bowel sounds. No distension or tympany. No guarding or rebound. No evidence of tenderness throughout. Back: No spinal tenderness. No costovertebral tenderness. Full range of motion. Male : Normal genitalia with no discharge or lesions. Skin: Warm, dry with normal turgor. Normal color with no rashes, no lesions, and no evidence of cellulitis. MS/ Extremity: Pulses equal, no cyanosis. Neurovascular intact. Full, normal range of motion. Neuro: Awake and alert, GCS 15, oriented to person, place, time, and situation. Cranial nerves II-XII grossly intact. Motor strength 5/5 in all extremities. Sensory grossly intact. Cerebellar exam normal. Normal gait. Psych: Awake, alert, with orientation to person, place and time. Behavior, mood, and affect are within normal limits. 17:50 Cardiovascular: Rate: tachycardic, actual rate is 110 bpm, Rhythm: regular, Pulses: Pulses are 4+ in bilateral radial, brachial, femoral, popliteal, posterior tibial and and dorsalis pedis arteries.. Heart sounds: normal, Edema: is not appreciated, JVD: is not appreciated, 17:50 ECG was reviewed by the Attending Physician. Vital Signs: 17:43 BP 147 / 89; Pulse 102; Resp 24; Temp 98.4; Pulse Ox 93% on CPAP; Pain 10/10; me1 17:43 Pain Scale: Adult me1 MDM: 17:47 Patient medically screened. akash 17:51 Differential diagnosis: Anemia Anxiety Reaction asthma, Bronchitis CHF exacerbation, akash Chronic Obstructive Pulmonary Disease acute asthma, exercise-induced asthma, CHF, URI, Myocardial Infarction pneumonia, Pneumothorax pulmonary edema, Pulmonary Embolism reactive airway disease, Unstable Angina. Antibiotic administration: Levaquin given. Immunization status: Influenza vaccine: within last 5 years. Data reviewed: vital signs, nurses notes, old medical records, lab test result(s), EKG, radiologic studies, plain films. Consideration of Admission/Observation Patient was admitted/placed on observation. Escalation of care including admission/observation considered. I considered the following discharge prescriptions or medication management in the emergency department Medications were administered in the Emergency Department. See MAR. Independent interpretation of the following test(s) in the Emergency Department EKG: See my EKG interpretation above. Test considered but Not performed: CT: no ct chest. Care significantly affected by the following chronic conditions: Hypertension, Congestive Heart Failure, Chronic Obstructive Pulmonary Disease, Obesity. Counseling: I had a detailed discussion with the patient and/or guardian regarding the historical points, exam findings, and any diagnostic results supporting the discharge/admit diagnosis, lab results, radiology results, the need for further work-up and treatment in the hospital. 07/16 17:48 Order name: Basic Metabolic Panel akash 07/16 17:48 Order name: CBC with Diff 07/16 17:48 Order name: LFT's 07/16 17:48 Order name: Magnesium 07/16 17:48 Order name: NT PRO-BNP 07/16 17:48 Order name: PT-INR; Complete Time: 18:47 07/16 17:48 Order name: Troponin HS 07/16 17:48 Order name: Blood Culture Adult (2) 07/16 17:48 Order name: Lactate w/ 2H reflex if indic. [facility] 07/16 17:49 Order name: Acetaminophen [facility] 07/16 17:49 Order name: ETOH Level [facility] 07/16 17:49 Order name: Ptt, Activated; Complete Time: 18:47 [facility] 07/16 17:49 Order name: Salicylate [facility] 07/16 17:49 Order name: Urinalysis w/ reflexes; Complete Time: 18:23 [facility] 07/16 17:49 Order name: Urine Drug Screen; Complete Time: 18:47 [facility] 07/16 18:25 Order name: ABG Arterial Blood Gas; Complete Time: 18:47 EDMS 07/16 17:48 Order name: Cardiac monitoring [facility] 07/16 17:48 Order name: EKG - Nurse/Tech [facility] 07/16 17:48 Order name: IV Saline Lock; Complete Time: 18:24 [facility] 07/16 17:48 Order name: Labs collected and sent; Complete Time: 18:24 [facility] 07/16 17:48 Order name: O2 Per Protocol; Complete Time: 18:24 [facility] 07/16 17:48 Order name: O2 Sat Monitoring; Complete Time: 18:24 [facility] 07/16 17:49 Order name: Suicide Screening ([place]); Complete Time: 18:25 [facility] EC:50 Rate is 110 beats/min. Rhythm is regular. QRS [place] is Normal. ND interval is normal. [facility] QRS interval is normal. No Q waves. T waves are Normal. No ST changes noted. Clinical impression: Sinus tachycardia. Interpreted by me. Reviewed by me. Administered Medications: 18:43 Drug: Famotidine IVP 20 mg IVP once; dilute with 10 mL 0.9% NaCl; give over 2 minutes me1 Route: IVP; Site: left forearm; 18:44 Drug: Thiamine IV 100 mg IV at bolus once Route: IV; Rate: bolus; Site: right me1 antecubital; 18:44 Drug: Banana Bag - (Multivitamin IV 1 amp, NS 0.9% IV 1000 ml, Thiamine IV 100 mg, me1 foLIC Acid IVPB 1 mg) IV at 250 ml/hr once Route: IV; Rate: 250 ml/hr; Site: right antecubital; 18:44 Not Given (given by EMS. Verbal order to cancell): [id number] mg IVP once me1 18:44 Drug: Magnesium Sulfate IVPB 2 grams IVPB once over 2 hrs Route: IVPB; Infused Over: 2 me1 hrs; Site: left forearm; 18:44 Drug: Levalbuterol Inhalation 3.75 mg Inhalation once Route: Inhalation; me1 18:44 Drug: Ipratropium Inhalation Aerosol 0.5 mg Inhalation once Route: Inhalation; me1 Disposition Summary: 07/16/24 18:53 Left Against Medical Advice Notes: Location: Home(07/16/24 18:53) akash Problem: new(07/16/24 18:53) akash Symptoms: have improved(07/16/24 18:53) akash Condition: Fair(07/16/24 18:53) akash Diagnosis - Tobacco abuse counseling(07/16/24 18:53) akash - Tobacco use(07/16/24 18:53) akash - Alcohol abuse akash - Alcohol abuse with intoxication(07/16/24 18:53) akash - COPD/ Chronic obstructive pulmonary disease with (acute) exacerbation(07/16/24 akash 18:53) Followup: akash - With: Private Physician - When: Upon discharge from the Emergency Department - Reason: Recheck today's complaints, Continuance of care, Re-evaluation by your physician Discharge Instructions: - Discharge Summary Sheet akash - Finding Treatment for Addiction akash - Alcohol Intoxication akash - Chronic Obstructive Pulmonary Disease akash - Steps to Quit Smoking akash - Chronic Obstructive Pulmonary Disease Exacerbation akahs - Chronic Obstructive Pulmonary Disease, [id number] akash - Alcohol Intoxication, [id number] akash - Steps to Quit Smoking, Wdyj-sh-Dzup akash - Cough, Adult, Iznc-dr-Ceap akash Signatures: Dispatcher [employer] EDBg Hooper MD MD cha Pinkerton, Shawna sp Lewis, Lynsay, RN RN 1 Radha Bliss RN RN me1 Corrections: (The following items were deleted from the chart) 17:49 17:49 Chest Single View+RAD.RAD.BRZ ordered. EDMS EDMS 17:50 17:49 ACETAMINOPHEN+C.LAB.BRZ ordered. EDMS EDMS 17:50 17:49 ETHANOL+C.LAB.BRZ ordered. EDMS EDMS 17:50 17:49 PTT, ACTIVATED+COAG.LAB.BRZ ordered. EDMS EDMS 17:50 17:49 SALICYLATE+C.LAB.BRZ ordered. EDMS EDMS 17:50 17:49 Urinalysis+U.LAB.BRZ ordered. EDMS EDMS 17:50 17:49 URINE DRUG SCREEN+UC.LAB.BRZ ordered. EDMS EDMS 18:43 18:27 [facility] sp 18:48 18:43 205 sp ll1 18:51 18:27 Observation [facility] 18:51 18:27 LavonLex bullard [facility] 18:51 18:27 Telemetry/MedSurg (observation) [facility] 18:51 18:27 Fair [facility] 18:51 18:27 new [facility] 18:51 18:27 have improved [facility] 18:51 18:27 Standard [facility] 18:51 18:27 COPD/ Chronic obstructive pulmonary disease with (acute) exacerbation [facility] 18:51 18:27 Abuse of other non-psychoactive substances [facility] 18:51 18:27 Alcohol abuse with intoxication [facility] 18:51 18:27 Cocaine abuse [facility] 18:51 18:27 Tobacco abuse counseling [facility] 18:51 18:27 Tobacco use [facility] 18:51 18:48 ll1 [facility] 18:53 18:53 Home ll1 [facility] 18:53 18:[address]
[2024-07-16] MEDS ORDERED: THIAMINE 200 MG/2 ML INJ ONE (18:29)
[2024-07-16] MEDS ORDERED: IPRATROPIUM BROM 0.5MG/2.5ML ONE (18:29)
[2024-07-16] MEDS ORDERED: LEVALBUTEROL 1.25 MG/3 ML NEB ONE (18:29)
[2024-07-16] MEDS ORDERED: FAMOTIDINE 20 MG/2 ML VIAL IV ONE (18:30)
[2024-07-16] MEDS ORDERED: MULTIVITAMINS 10 ML VIAL (INJ) IV ONE (18:30)
[2024-07-16] MEDS ORDERED: Magnesium Sulfate 2gm IVPB 2 G/50 ML BAG IV ONE (18:31)
[2024-07-16] MEDS ORDERED: FOLIC ACID 5 MG/ML VIAL ONE (18:31)
[2024-07-16] MEDS ORDERED: NA CHLORIDE 0.9% 1,000 ML ONE (18:31)
[2024-07-16 18:34] LABS: Absolute Lymphocytes (CBC) 0.5 K/uL (0.7-4.9); Absolute Monocytes 0.1 K/uL (0.1-1.3); Absolute Neutrophil 7.9 K/uL (1.8-8.0); Basophils % 0.4 % (0-1.3); Hematocrit 38.5 % (39.6-49.0); Hemoglobin 12.6 g/dL (13.6-17.9); Lymphocytes % 5.4 % (15.3-44.8); MCH 31.7 pg (27.0-35.0); MCHC 32.7 g/dL (32.0-36.0); MPV 6.6 fL (7.6-11.3); Neutrophils % 93.2 % (41.7-73.7); Platelets 265 thou/uL (152-406); RBC Red Blood Cell Count 3.97 M/uL (4.33-5.43)
[2024-07-16 18:37] LABS: PT Prothrombin Time 9.8 SECONDS (9.4-12.5); Protime INR 0.87
[2024-07-16 18:52] LABS: ALT/SGPT 25 U/L (16-61); AST/SGOT 18 U/L (15-37); Albumin 3.9 g/dL (3.4-5.0); Albumin/Globulin Ratio 1.1 (1.1-1.8); Alkaline Phosphatase 85 U/L (45-117); Anion Gap 15.8 mEq/L (5.0-15.0); BUN Blood Urea Nitrogen 7 mg/dL (7-18); Bicarbonate 21 mEq/L (21-32); Bilirubin Total 0.2 mg/dL (0.2-1.0); Globulin 3.7 g/dL (2.3-3.5); Glomerular Filtration Rate 109 ml/min (=/>90); Glucose Level 184 mg/dL (74-106); Magnesium 2.4 mg/dL (1.6-2.4); NT PRO-BNP 72 pg/mL (<125); Potassium 3.8 mEq/L (3.5-5.1); Protein, Total 7.6 g/dL (6.4-8.2); Sodium Level 139 mEq/L (136-145); Troponin High Sensitivity 4.8 pg/mL (<58.9)
[2024-07-16 18:55] LABS: Bilirubin Direct < 0.2 mg/dL (0-0.2)
[2024-07-16 19:13] VITALS: BP 147/89; TEMP 98.4; O2SAT 93
[2024-07-16 21:42] LABS: Blood Morphology Comment NOT SEEN (NOT SEEN); Platelet Estimate ADEQ; White Blood Cell Scan OK (OK)
--- NOTE | 2024-07-18 16:59 | EKG ---
Test Date: 2024-07-17 Test Time: 16:44:29 Data Abstractor: TRUNG MEASUREMENT RESULTS: Intervals: Rate: 107 TN: 138 QRSD: 110 QT: 354 QTc: 472 Cyril: P: 69 TN: 138 QRS: 95 T: 73 INTERPRETIVE STATEMENTS: Sinus tachycardia Otherwise normal ECG Compared to ECG 07/16/2024 09:57:22 No significant changes Electronically Signed On 07-18-24 16:58:22 CDT by Rosalino Albert
== END 2024-07-16 18:53 | disposition left against medical advice (07) ==
LOC: ER 17:39
DX: J44.1 Chronic obstructive pulmonary disease with (acute) exacerbation (principal); F10.229 Alcohol dependence with intoxication, unspecified; Z71.6 Tobacco abuse counseling; Z72.0 Tobacco use; Z99.81 Dependence on supplemental oxygen; I10 Essential (primary) hypertension
CPT/HCPCS: 93005; 87040 ×2; 85025; 81001; 80048; 36415; 83735; 85610; 80076; 83605; 85730; 84484; 83880; 80307; 82805; 99285; 80143; 80179; 82077; 36600; 94660; J3411; J3475; J7614; J7644; J7030

== ENCOUNTER 2024-07-17 16:24 | Emergency (ER) | payer OTHER ==
--- OUTSIDE RECORDS SUMMARY | 2024-07-17 16:30 | XMS REPORT | Continuity of Care Document ---
Author Name Unknown Address [address] [facility] [address] [place] [address] [facility] Address [address] [facility]. [address] [place] [address] Care Team Providers Care Licensed Guide Name Role Phone Juan Daniel [facility] Primary Care Physician WENDY BROWNLEE Attending Clinician Unava MYRNA Honeycutt Attending Clinician Unavailable DARIEN LOBO Attending Clinician Unavailable MINNA ORTA Attending Clinician Unavailab SHARATH Isbell Attending Clinician Unavailable YARY CAMP Attending Clinician Unavailable Yary Camp NP Attending Clinician [phone] TUNDE QUINTANILLA Attending Clinician Unavailable KEISHA DAVENPORT Attending Clinician UnaKeisha Carver MD Attending Clinician + Christina Victoria Attending Clinician [phone] JAC NAVARRO Attending Clinician Unavailable Jac Navarro MD Attending Clinician [phone] CAILIN ROWE Attending Clinician Unavailab QUENTIN Boothe Attending Clinician Unavailable Quentin Maciel DO Attending Clinician [phone] CHRISTY HOLLIDAY Attending Clinician Unavailable Christy Holliday MD Attending Clinician [phone] MARIA ELENA [facility] Attending Clinicia n Unavailable DENISE SUNG Attending Clinician Unavailable KARLEY ADAMS Attending Clinician Unavailable JAC NAVARRO Admitting Clinician Unavailable QUENTIN MACIEL Admitting Clinician Unavailable CHRISTY HOLLIDAY Admitting Clinician Unavailable Payers Payer Name Policy Type Policy Number Effective Date Expirati on Date Source [facility] [id number] 2024 00:00:00 [facility] VINOD LEE COPAY FOCUS 9 [id number] 2024 00:00:00 [employer] [id number] 2023 00:00:00 [employer] 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: BRANDON [employer] 94 ON 9 [id number] 2023 00:00:00 Problems Condition Name Condition Details [...] History of tobacco use Smokes tobacco daily [facility] of Social function 2024-05-24 00:00:00 2024-05-24 00:00:00 [facility] Alcoholic beverage intake 2024-05-24 00:00:00 2024-05-24 00:00:00 4.29 /d [facility] Alcohol intake 2024-02-08 00:00:00 2024-02-08 00:00:00 4.29 /d [facility] Exposure to SARS-CoV-2 (event) 2022-10-04 00:00:00 2022-10-14 10:25:00 Not sure [facility] Tobacco use and exposure 2018-03-24 00:00:00 2018-03-24 00:00:00 User of smokeless tobacco [facility] Tobacco Comment 2018-03-24 00:00:00 2018-03-24 00:00:00 trying to quit [facility] Sex assigned at 1970 00:00:00 1970 00:00:00 [facility] Smoking Status Start Date Stop Date Source Smokes tobacco daily 2018-03-24 00:00:00 [facility] Medications Ordered Medication Name Filled [...] 1 dose, On Thu05/24/24 at 0900, LAURYN [facility] mupirocin 2 % ointment 05-24 00:00: 00 Yes [id number] Apply to area(s) 3 (three) times daily. [facility] cephALEXin 500 mg tablet 05-24 00:00: 00 06-01 04:59 :00 Yes [id number] 6 500mg Take 1 tablet by mouth 4 (four) times daily for 7 days. [facility] ketorolac (TORADOL) injection 30 mg 02-17 03:15: 00 02-17 15:14 :00 No 30mg 30 mg, Slow IV Push, ONCE, 1 dose, On Thu02/17/24 at 2215, Routine [facility] methylpredn isolone sod succ (SOLU-MEDRO L) injection 125 mg 2024-0 4-11 03:00: 00 02-17 14:59 :00 No 125mg 125 mg, Intravenou s, ONCE, 1 dose, On Thu02/17/24 at 2200, 2 mL [facility] ipratropium -albuteroL (DUONEB) 0.5 mg-3 mg(2.5 mg base)/3 mL nebulizer solution 6 mL 02-17 03:00: 00 02-17 14:59 :00 No 6mL 6 mL, Inhalation , ONCE NOW, 1 dose, On Thu02/17/24 at 2200, Routine [facility] NaCl 0.9% (NS) bolus infusion 1,000 mL 02-17 03:00: 00 02-17 14:59 :00 No 1000mL at 999 mL/hr, 1,000 mL, IV Infusion, ONCE, 1 dose, On Thu02/17/24 at 2200, LAURYN [facility] triamterene -hydrochlor othiazide 37.5-25 mg per capsule 02-16 20:52: 37 02-16 00:00 :00 No 1{capsu le} Take 1 capsule by mouth every morning. [facility] albuterol 5 mg/mL nebulizer solution 02-16 20:51: 42 02-16 00:00 :00 No 2.5mg Inhale 2.5 mg every 6 (six) hours as needed for Wheezing or Shortness of Breath. [facility] ketorolac (TORADOL) injection 15 mg 02-08 03:00: 00 02-08 02:21 :00 No 15mg 15 mg, Slow IV Push, ONCE, 1 dose, On Thu02/08/24 at 2200, Routine [facility] iopamidol (ISOVUE 370-500 mL) injection 100 mL 02-07 22:30: 00 02-07 22:30 :00 No [id number] 100mL 100 mL, Intravenou s, ONCE, 1 dose, On Thu02/08/24 at 1730, Routine [facility] ipratropium -albuteroL (DUONEB) 0.5 mg-3 mg(2.5 mg base)/3 mL nebulizer solution 3 mL 02-07 21:15: 00 02-07 20:45 :00 No 3mL 3 mL, Inhalation , ONCE, 1 dose, On Thu02/08/24 at 1615, Routine [facility] morpHINE (2 mg/mL) injection 4 mg 02-07 21:15: 00 02-07 20:27 :00 No 4mg 4 mg, Slow IV Push, ONCE, 1 dose, On Thu02/08/24 at 1615, STAT [facility] ondansetron (ZOFRAN (PF)) injection 4 mg 02-07 21:15: 00 02-07 20:22 :00 No 4mg 4 mg, Slow IV Push, ONCE, 1 dose, On Thu02/08/24 at 1615, LAURYN [facility] magnesium sulfate in water 2 gram/50 mL [...] dose, On Thu02/08/24 at 1530, Routine [facility] HYDROcodone -acetaminop hen (NORCO) 10-325 mg tablet 1 tablet 01-13 13:15: 00 01-13 12:15 :00 No 1{tbl} 1 tablet, Oral, ONCE, 1 dose, On [facility] 01/14/24 at 0715, LAURYN [facility] ipratropium -albuteroL (DUONEB) 0.5 mg-3 mg(2.5 mg base)/3 mL nebulizer solution 3 mL 01-13 13:00: 00 01-13 11:53 :00 No 3mL 3 mL, Inhalation , ONCE NOW, 1 dose, On Kym 01/14/24 at 0700, LAURYN [facility] ondansetron (ZOFRAN (PF)) injection 4 mg 01-13 11:30: 00 01-13 11:37 :00 No 4mg 4 mg, Slow IV Push, ONCE, 1 dose, On Kym 01/14/24 at 0530, LAURYN [facility] morpHINE (4 mg/mL) injection 4 mg 01-13 11:30: 00 01-13 11:37 :00 No 4mg 4 mg, Slow IV Push, ONCE, 1 dose, On Kym 01/14/24 at 0530, STAT [facility] azithromyci n (ZITHROMAX Z-PORTER) 250 mg tablet 01-13 00:00: 00 02-16 00:00 :00 No [id number] Take 500 mg on day 1 then 250 mg on days 2-5 [facility] predniSONE 20 mg tablet 01-13 00:00: 00 02-16 00:00 :00 No [id number] Take 1 po tid x 2 days, [...] pain, severe cough [facility] clonazePAM 1 mg tablet 17 00:00: 00 02-16 00:00 :00 No 1mg Take 1 tablet by mouth at bedtime as needed for Other (anxiety). [facility] KCL (KLOR-CON M20) tablet 40 mEq -14 05:00: 00 12-23 05:07 :00 No 40meq 40 mEq, Oral, ONCE, 1 dose, On Thu12/22/23 at 2300, [facility] NaCl 0.9% (NS) bolus infusion 1,000 mL 12-23 05:00: 00 12-23 05:09 :00 No 1000mL at 999 mL/hr, 1,000 mL, IV Infusion, ONCE, 1 dose, On Thu12/22/23 at 2300, [facility] ondansetron (ZOFRAN (PF)) injection 4 mg 12-23 04:30: 00 12-23 04:24 :00 No 4mg 4 mg, Slow IV Push, ONCE, 1 dose, On Thu12/22/23 at 2230, [facility] maalox:diph enhydrAMINE :lidocaine 2 % viscous 1:1:1 ([facility]) oral suspension 15 mL 12-23 04:15: 00 12-23 04:17 :00 No 15mL 15 mL, Oral, ONCE, 1 dose, On Thu12/22/23 at 2215, Routine [facility] famotidine (PEPCID (PF)) injection 20 mg 12-23 04:15: 00 12-23 04:15 :00 No 20mg 20 mg, Slow IV Push, ONCE, 1 dose, On Thu12/22/23 at 2215, [facility] HYDROcodone -acetaminop hen (NORCO) 10-325 [...] 12-22 03:30: 00 12-22 03:30 :00 No [id number] 100mL 100 mL, Intravenou s, ONCE, 1 dose, On Thu12/21/23 at 2130, Routine [facility] morpHINE (4 mg/mL) injection 4 mg 12-22 03:30: 00 12-22 02:16 :00 No 4mg 4 mg, Slow IV Push, ONCE, 1 dose, On Thu12/21/23 at 2130, Routine [facility] ondansetron (ZOFRAN (PF)) injection 4 mg 12-22 02:45: 00 12-22 02:02 :00 No 4mg 4 mg, Slow IV Push, ONCE, 1 dose, On Thu12/21/23 at 2045, Routine [facility] hydrocortis one 25 mg suppository 12-22 00:00: 00 Yes [id number] 25mg Insert 1 Suppositor y into rectum 2 (two) times daily as needed for Rectal itching/pa in. [facility] ondansetron 4 mg disintegrat ing tablet 12-22 00:00: 00 02-16 00:00 :00 No [id number] 4mg Take 1 tablet by mouth every 8 (eight) hours as needed for Nausea and Vomiting (N/V). [facility] amoxicillin -clavulanat e 875-125 mg per tablet 12-22 00:00: 00 01-02 05:59 :00 No [id number] 1{tbl} Take 1 tablet by mouth every [...] s
Durat ion of therapy: Once (ED) [facility] DICLOFEN SOD 75MG EC 04-08 00:00: 00 [...] 00:00: 00 Yes Tunde Haro AMOX/K CLAV [id number] 3-03 00:00: 00 Yes Tunde Haro iopamidol (ISOVUE 370-500 mL) injection 70 mL 2021-11 18:30: 00 10-14 18:30 :00 No [id number] 70mL 70 mL, Intravenou s, ONCE, 1 dose, On Thu10/14/22 at 1230, Routine [facility] methylpredn isolone sod succ (SOLU-MEDRO L) injection 125 mg 2021-11 18:00: 00 Yes 125mg 125 mg, Intravenou s, Q6H, First dose on Thu10/14/22 at 1200, Until Discontinu ed, Routine [facility] furosemide (LASIX) injection 40 mg 2021-11 17:45: 00 10-14 16:39 :00 No 40mg 40 mg, IV Push, ONCE, 1 dose, On Thu10/14/22 at 1145, LAURYN [facility] ipratropium -albuteroL (DUONEB) 0.5 mg-3 mg(2.5 mg [...] 2021-11 00:00: 00 02-16 00:00 :00 No [id number] 750mg Take 1 tablet by mouth every 24 (twenty-fo ur) hours. [facility] HYDROcodone -acetaminop hen (NORCO) 10-325 mg tablet 1 tablet 03-12 12:15: 00 03-12 11:21 :00 No 1{tbl} 1 tablet, Oral, ONCE, 1 dose, On Thu03/12/22 at 0715, Routine [facility] HYDROcodone -acetaminop hen 10-325 mg tablet 03-12 [...] Thu02/20/22 at 0800, Until Discontinu ed, Routine [facility] methylPREDN ISolone sod succ (SOLU-MEDRO L (PF)) injection 40 mg 02-20 11:45: 00 02-20 10:43 :00 No 40mg 40 mg, Intravenou s, ONCE, 1 dose, On Thu02/20/22 at 0645, STAT [facility] foLIC acid (FOLATE) tablet 1 mg 02-20 11:45: 00 02-20 10:41 :00 No 1mg 1 mg, Oral, ONCE, 1 dose, On Thu02/20/22 at 0645, LAURYN [facility] thiamine (VITAMIN B1) injection 100 mg 02-20 11:45: 00 02-20 10:43 :00 No 100mg 100 mg, Intravenou s, ONCE, 1 dose, On Thu02/20/22 at 0645, LAURYN [facility] LORazepam (ATIVAN) injection 2 mg 02-20 11:45: 00 02-20 10:42 :00 No 2mg 2 mg, Slow IV Push, ONCE, 1 dose, On [facility] 02/20/22 at 0645, STAT [facility] ipratropium -albuteroL (DUONEB) 0.5 mg-3 mg(2.5 mg base)/3 mL nebulizer solution 3 mL 02-20 10:30: 00 02-20 09:34 :00 No 3mL 3 mL, Inhalation , ONCE, 1 dose, On [facility] 02/20/22 at 0530, Routine [facility] albuterol 90 mcg/actuati on inhaler 02-20 00:00: 00 Yes [id number] 2{puff} Inhale 2 Puffs every 4 (four) hours as needed for Wheezing or Shortness of Breath. [facility] triamterene -hydrochlor othiazid 37.5-25 mg tablet 02-20 00:00: 00 Yes [id number] 1{tbl} Take 1 tablet by mouth daily. [facility] chlordiazeP OXIDE 25 mg capsule 02-20 00:00: 00 Yes [id number] 25mg Take 1 capsule by mouth every 6 (six) hours as needed for Anxiety, Agitation, Heart Rate => 100 or Detox. [facility] predniSONE 10 mg tablet 02-20 00:00: 00 02-16 00:00 :00 No [id number] TAKE ONE TABLET BY MOUTH DAILY [facility] albuterol 2.5 mg /3 mL (0.083 %) nebulizer solution 02-20 00:00: 00 02-16 00:00 :00 No [id number] 2.5mg Inhale 3 mL every 4 (four) hours. May also nebulize one extra every 6 hours. [facility] budesonide- formoteroL 160-4.5 mcg/actuati on inhaler 02-20 00:00: 00 02-16 00:00 :00 No [id number] 2{puff} Inhale 2 Puffs 2 (two) times daily. [facility] albuterol 5 mg/mL [...] SARS-COV-2 COVID-19 PFIZER VACCINE 2021-02-03 00:00:00 Completed [facility] SARS-COV-2 COVID-19 PFIZER VACCINE 2021-02-03 00:00:00 Completed [facility] SARS-COV-2 COVID-19 PFIZER VACCINE 2021-02-03 00:00:00 Completed [facility] SARS-COV-2 COVID-19 PFIZER VACCINE 2021-01-13 00:00:00 Completed [facility] SARS-COV-2 COVID-19 PFIZER VACCINE 2021-01-13 00:00:00 Completed [facility] SARS-COV-2 COVID-19 PFIZER VACCINE 2021-01-13 00:00:00 Completed [facility] Pneumococcal Polysaccharide, PPSV23 (PNEUMOVAX) 2018-03-26 00:00:00 Completed [facility] Influenza Virus Vaccine Quad IM 3+ YRS 2018-03-26 00:00:00 Completed [facility] Pneumococcal Polysaccharide, PPSV23 (PNEUMOVAX) 2018-03-26 00:00:00 Completed [facility] Influenza Virus Vaccine Quad IM 3+ YRS 2018-03-26 00:00:00 Completed [facility] Pneumococcal Polysaccharide, PPSV23 (PNEUMOVAX) 2018-03-26 00:00:00 Completed [facility] Influenza Virus Vaccine Quad IM 3+ YRS 2018-03-26 00:00:00 Completed [facility] Pneumococcal Polysaccharide, PPSV23 (PNEUMOVAX) Unknown Completed [facility] Influenza Virus Vaccine Quad IM 3+ YRS Unknown Completed [facility] SARS-COV-2 COVID-19 PFIZER VACCINE Unknown Completed [facility] SARS-COV-2 COVID-19 PFIZER VACCINE Unknown Completed [facility] Pneumococcal Polysaccharide, PPSV23 (PNEUMOVAX) Unknown Completed [facility] Influenza Virus Vaccine Quad IM 3+ YRS Unknown Completed [facility] SARS-COV-2 COVID-19 PFIZER VACCINE Unknown Completed [facility] SARS-COV-2 COVID-19 PFIZER VACCINE Unknown Completed [facility] Pneumococcal Polysaccharide, PPSV23 (PNEUMOVAX) Unknown Completed [facility] Influenza Virus Vaccine Quad IM 3+ YRS Unknown Completed [facility] SARS-COV-2 COVID-19 PFIZER VACCINE Unknown Completed [facility] SARS-COV-2 COVID-19 PFIZER VACCINE Unknown Completed [facility] Pneumococcal Polysaccharide, PPSV23 (PNEUMOVAX) Unknown Completed [facility] Influenza Virus Vaccine Quad IM 3+ YRS Unknown Completed [facility] SARS-COV-2 COVID-19 PFIZER VACCINE Unknown Completed [facility] SARS-COV-2 COVID-19 PFIZER VACCINE Unknown Completed [facility] Pneumococcal Polysaccharide, PPSV23 (PNEUMOVAX) Unknown Completed [facility] Influenza Virus Vaccine Quad IM 3+ YRS Unknown Completed [facility] SARS-COV-2 COVID-19 PFIZER VACCINE Unknown Completed [facility] SARS-COV-2 COVID-19 PFIZER VACCINE Unknown Completed [facility] Pneumococcal Polysaccharide, PPSV23 (PNEUMOVAX) Unknown Completed [facility] Influenza Virus Vaccine Quad IM 3+ YRS Unknown Completed [facility] SARS-COV-2 COVID-19 PFIZER VACCINE Unknown Completed [facility] SARS-COV-2 COVID-19 PFIZER VACCINE Unknown Completed [facility] Pneumococcal Polysaccharide, PPSV23 (PNEUMOVAX) Unknown Completed [facility] Influenza Virus Vaccine Quad IM 3+ YRS Unknown Completed [facility] SARS-COV-2 COVID-19 PFIZER VACCINE Unknown Completed [facility] SARS-COV-2 COVID-19 PFIZER VACCINE Unknown Completed [facility] Pneumococcal Polysaccharide, PPSV23 (PNEUMOVAX) Unknown Completed [facility] Influenza Virus Vaccine Quad IM 3+ YRS Unknown Completed [facility] SARS-COV-2 COVID-19 PFIZER VACCINE Unknown Completed [facility] SARS-COV-2 COVID-19 PFIZER VACCINE Unknown Completed [facility] Pneumococcal Polysaccharide, PPSV23 (PNEUMOVAX) Unknown Completed [facility] Influenza Virus Vaccine Quad IM 3+ YRS Unknown Completed [facility] SARS-COV-2 COVID-19 PFIZER VACCINE Unknown Completed [facility] SARS-COV-2 COVID-19 PFIZER VACCINE Unknown Completed [facility] Vital Signs Vital Name Observation Time Observation Value Comments S ource Systolic blood pressure 2024-05-24 13:51:42 157 mm[Hg] [facility] Diastolic blood pressure 2024-05-24 13:51:42 93 mm[Hg] [facility] Heart rate 2024-05-24 13:51:42 98 /[facility] 2024-05-24 13:51:42 18 /min [facility] Oxygen saturation in Arterial blood by Pulse oximetry 2024-05-24 13:51:42 97 /min [facility] Body temperature 2024-05-24 13:36:00 36.78 Debbie [facility] Body height 2024-05-24 13:36:00 162.6 cm [facility] Body weight 2024-05-24 13:36:00 78.472 kg [facility] BMI 2024-05-24 13:36:00 29.70 kg/m2 [facility] Systolic blood pressure 2024-02-18 01:57:00 134 mm[Hg] [facility] Diastolic blood pressure 2024-02-18 01:57:00 94 mm[Hg] [facility] Body height 2024-02-18 01:57:00 162.6 cm [facility] Body weight 2024-02-18 01:57:00 79.379 kg [facility] BMI 2024-02-18 01:57:00 30.04 kg/m2 [facility] Heart rate 2024-02-18 01:53:00 110 /min [facility] Body temperature 2024-02-18 01:53:00 36.61 Debbie [facility] Respiratory rate 2024-02-18 01:53:00 24 /min [facility] Oxygen saturation in Arterial blood by Pulse oximetry 2024-02-18 01:53:00 93 /min [facility] Systolic blood pressure 2024-02-09 01:54:05 150 mm[Hg] [facility] Diastolic blood pressure 2024-02-09 01:54:05 91 mm[Hg] [facility] Heart rate 2024-02-09 01:54:05 87 /min [facility] Respiratory rate 2024-02-09 01:54:05 17 /min [facility] Oxygen saturation in Arterial blood by Pulse oximetry 2024-02-09 01:54:05 93 /min [facility] Body temperature 2024-02-09 01:45:00 36.67 Debbie [facility] Body height 2024-02-09 01:45:00 162.6 cm [facility] Body weight 2024-02-09 01:45:00 81.194 kg [facility] BMI 2024-02-09 01:45:00 30.73 kg/m2 [facility] Respiratory rate 2024-02-08 21:00:00 18 /min [facility] Oxygen saturation in Arterial blood by Pulse oximetry 2024-02-08 21:00:00 96 /min [facility] Systolic blood pressure 2024-02-08 20:27:00 164 mm[Hg] [facility] Diastolic blood pressure 2024-02-08 20:27:00 90 mm[Hg] [facility] Heart rate 2024-02-08 20:27:00 83 /min [facility] Body temperature 2024-02-08 19:12:00 36.83 Debbie [facility] Body height 2024-02-08 19:12:00 162.6 cm [facility] Body weight 2024-02-08 19:12:00 81.194 kg [facility] BMI 2024-02-08 19:12:00 30.73 kg/m2 [facility] Heart rate 2024-01-14 12:15:00 98 /min [facility] Body temperature 2024-01-14 12:15:00 36.56 Debbie [facility] Respiratory rate 2024-01-14 12:15:00 14 /min [facility] Oxygen saturation in Arterial blood by Pulse oximetry 2024-01-14 12:15:00 95 /min [facility] Systolic blood pressure 2024-01-14 12:00:00 140 mm[Hg] [facility] Diastolic blood pressure 2024-01-14 12:00:00 90 mm[Hg] [facility] Body height 2024-01-14 10:51:00 162.6 cm [facility] Body weight 2024-01-14 10:51:00 81.194 kg [facility] BMI 2024-01-14 10:51:00 30.73 kg/m2 [facility] Systolic blood pressure 2023-12-23 05:02:00 133 mm[Hg] [facility] Diastolic blood pressure 2023-12-23 05:02:00 84 mm[Hg] [facility] Heart rate 2023-12-23 05:02:00 78 /min Unive [facility] Body temperature 2023-12-23 05:02:00 36.17 Debbie [facility] Respiratory rate 2023-12-23 05:02:00 17 /min [facility] Oxygen saturation in Arterial blood by Pulse oximetry 2023-12-23 05:02:00 91 /min [facility] Body height 2023-12-23 03:45:00 162.6 cm [facility] Body weight 2023-12-23 03:45:00 81.194 kg [facility] BMI 2023-12-23 03:45:00 30.73 kg/m2 [facility] Systolic blood pressure 2023-12-22 02:08:00 143 mm[Hg] [facility] Diastolic blood pressure 2023-12-22 02:08:00 92 mm[Hg] [facility] Heart rate 2023-12-22 02:08:00 81 /min [facility]ive [facility] Respiratory rate 2023-12-22 02:08:00 13 /min [facility] Oxygen saturation in Arterial blood by Pulse oximetry 2023-12-22 02:08:00 95 /min [facility] Body temperature 2023-12-22 01:33:00 36.72 Debbie [facility] Body height 2023-12-22 01:33:00 162.6 cm [facility] Body weight 2023-12-22 01:33:00 81.239 kg [facility] BMI 2023-12-22 01:33:00 30.74 kg/m2 [facility] Systolic blood pressure 2023-11-11 02:00:00 127 mm[Hg] [facility] Diastolic blood pressure 2023-11-11 02:00:00 87 mm[Hg] [facility] Heart rate 2023-11-11 02:00:00 79 /min Unive [facility] Respiratory rate 2023-11-11 02:00:00 20 /min [facility] Oxygen saturation in Arterial blood by Pulse oximetry 2023-11-11 02:00:00 98 /min [facility] Body temperature 2023-11-11 01:31:00 36.28 Debbie [facility] Body height 2023-11-11 01:31:00 162.6 cm [facility] Body weight 2023-11-11 01:31:00 79.379 kg [facility] BMI 2023-11-11 01:31:00 30.04 kg/m2 [facility] Systolic blood pressure 2023-10-27 06:54:00 133 mm[Hg] [facility] Diastolic blood pressure 2023-10-27 06:54:00 94 mm[Hg] [facility] Heart rate 2023-10-27 06:54:00 95 /min Unive [facility] Body temperature 2023-10-27 06:54:00 36.44 Debbie [facility] Respiratory rate 2023-10-27 06:54:00 22 /min [facility] Body height 2023-10-27 06:54:00 162.6 cm [facility] Body weight 2023-10-27 06:54:00 78.472 kg [facility] BMI 2023-10-27 06:54:00 29.70 kg/m2 [facility] Oxygen saturation in Arterial blood by Pulse oximetry 2023-10-27 06:54:00 94 /min [facility] Systolic blood pressure 2022-10-14 19:43:00 111 mm[Hg] [facility] Diastolic blood pressure 2022-10-14 19:43:00 74 mm[Hg] [facility] Heart rate 2022-10-14 19:43:00 98 /min [facility] Body temperature 2022-10-14 19:43:00 36.39 Debbie [facility] Respiratory rate 2022-10-14 19:43:00 22 /min [facility] Oxygen saturation in Arterial blood by Pulse oximetry 2022-10-14 19:43:00 94 /min [facility] Body height 2022-10-14 16:13:00 162.6 cm [facility] Body weight 2022-10-14 16:13:00 81.647 kg [facility] BMI 2022-10-14 16:13:00 30.90 kg/m2 [facility] Systolic blood pressure 2022-03-12 10:13:00 119 mm[Hg] [facility] Diastolic blood pressure 2022-03-12 10:13:00 75 mm[Hg] [facility] Heart rate 2022-03-12 10:13:00 105 /min [facility] Body temperature 2022-03-12 10:13:00 37.28 Debbie [facility] Respiratory rate 2022-03-12 10:13:00 19 /min [facility] Body height 2022-03-12 10:13:00 162.6 cm [facility] Body weight 2022-03-12 10:13:00 99.791 kg [facility] BMI 2022-03-12 10:13:00 37.76 kg/m2 [facility] Oxygen saturation in Arterial blood by Pulse oximetry 2022-03-12 10:13:00 96 /min [facility] Systolic blood pressure 2022-02-20 11:57:00 155 mm[Hg] [facility] Diastolic blood pressure 2022-02-20 11:57:00 88 mm[Hg] [facility] Heart rate 2022-02-20 11:57:00 105 /min [facility] Respiratory rate 2022-02-20 11:57:00 18 /min [facility] Oxygen saturation in Arterial blood by Pulse oximetry 2022-02-20 11:57:00 100 /min [facility] Body temperature 2022-02-20 09:25:00 37 Debbie [facility] Body height 2022-02-20 09:25:00 162.6 cm [facility] Body weight 2022-02-20 09:25:00 96.163 kg [facility] BMI 2022-02-20 09:25:00 36.39 kg/m2 [facility] Respiratory Rate 2024-05-26 13:39:00 16.00 /min [...] + LACTIC ACID 2024-02-08 20:47:00 Christina Villarreal [facility] XR CHEST 1 VW 2024-02-08 19:47:00 Christina Villarreal [facility] URINALYSIS 2024-02-08 19:36:00 Christina Villarreal [facility] MAGNESIUM 2024-02-08 19:25:00 Christina Villarreal [facility] TROPONIN I 2024-02-08 19:25:00 Christina Villarreal [facility] COMP. METABOLIC PANEL ([id number]) 2024-02-08 19:25:00 Christina Villarreal [facility] ETHANOL 2024-02-08 19:25:00 Christina Villarreal [facility] CBC WITH DIFF 2024-02-08 19:25:00 Christina Villarreal [facility] N-TERMINAL PRO-BNP 2024-02-08 19:25:00 Christina Villarreal [facility] EKG-12 LEAD 2024-01-14 12:00:51 Jac Navarro sity [facility] LIPASE 2024-01-14 11:11:00 Vasut, Jac J [facility] TROPONIN I 2024-01-14 11:11:00 Jac Navarro [facility] COMP. METABOLIC PANEL ([id number]) 2024-01-14 11:11:00 Jac Navarro [facility] ETHANOL 2024-01-14 11:11[facility]00 [facility] 2024-01-14 11:11:00 Jac Navarro [facility] N-TERMINAL PRO-BNP 2024-01-14 11:11:00 Jac Navarro [facility] COVID-19 (ID NOW RAPID TESTING) 2024-01-14 11:11:00 Jac Navarro [facility] CONSENT/REFUSAL FOR DIAGNOSIS AND TREATMENT 2024-01-14 10:44:32 Doctor Unassigned, [place] [facility] LIPASE 2023-12-23 04:17:00 Cailin Rowe [facility] COMP. METABOLIC PANEL ([id number]) 2023-12-23 04:17:00 Cailin Rowe [facility] CBC WITH DIFF 2023-12-23 04:17:00 Cailin Rowe [facility] URINALYSIS 2023-12-23 04:17:00 Cailin Rowe [facility] CONSENT/REFUSAL FOR DIAGNOSIS AND TREATMENT 2023-12-23 03:40:32 Doctor Unassigned, [place] [facility] CT ABDOMEN PELVIS W CONTRAST 2023-12-22 02:31:05 Quentin Maciel [facility] LIPASE 2023-12-22 01:58:00 Quentin Maciel [facility] COMP. METABOLIC PANEL ([id number]) 2023-12-22 01:58:00 Quentin Maciel [facility] ETHANOL 2023-12-22 01:58:00 Quentin Maciel [facility] CBC WITH DIFF 2023-12-22 01:58:00 Quentin Maciel [facility] PROTHROMBIN TIME / INR 2023-12-22 01:58:00 Wali Maciel [facility] URINALYSIS 2023-12-22 01:58:00 Quentin Maciel [facility] CONSENT/REFUSAL FOR DIAGNOSIS AND TREATMENT 2023-12-22 01:19:14 Doctor Unassigned, [place] [facility] NOTICE OF PRIVACY PRACTICES 2023-11-11 01:24:24 Doctor Unassigned, [place] [facility] CONSENT/REFUSAL FOR DIAGNOSIS AND TREATMENT 2023-11-11 01:23:54 Doctor Unassigned, [place] [facility] COVID-19 (ID NOW RAPID TESTING) 2023-10-27 07:09:00 Jac Navarro [facility] NOTICE OF PRIVACY PRACTICES 2023-10-27 06:49:48 Doctor Unassigned, [place] [facility] CONSENT/REFUSAL FOR DIAGNOSIS AND TREATMENT 2023-10-27 06:47:40 Doctor Unassigned, [place] [facility] CT ABDOMEN PELVIS W CONTRAST 2022-10-14 17:33:00 Quentin Maciel [facility] XR CHEST 1 VW 2022-10-14 17:10:37 Quentin Maciel [facility] TROPONIN I 2022-10-14 16:37:00 Quentin Maciel [facility] COMP. METABOLIC PANEL ([id number]) 2022-10-14 16:37:00 Quentin Maciel [facility] CBC WITH DIFF 2022-10-14 16:37:00 Quentin Maciel [facility] PROTHROMBIN TIME / INR 2022-10-14 16:37:00 Wali Maciel [facility] URINALYSIS 2022-10-14 16:37:00 Quentin Maciel [facility] N-TERMINAL PRO-BNP 2022-10-14 16:37:00 Singer [facility] CONSENT/REFUSAL FOR DIAGNOSIS AND TREATMENT 2022-10-14 15:56:36 Doctor Unassigned, [place] [facility] CONSENT/REFUSAL FOR DIAGNOSIS AND TREATMENT 2022-03-12 10:03:12 Doctor Unassigned, [place] [facility] XR CHEST 1 VW 2022-02-20 09:59:00 Christy Holliday [facility] LIPASE 2022-02-20 09:30:00 Christy Holliday [facility] TROPONIN I 2022-02-20 09:30:00 Christy Holliday [facility] COMP. METABOLIC PANEL ([id number]) 2022-02-20 09:30:00 Christy Holliday [facility] CBC WITH DIFF 2022-02-20 09:30:00 Christy Holliday [facility] N-TERMINAL PRO-BNP 2022-02-20 09:30:00 Christy Holliday [facility] NOTICE OF PRIVACY PRACTICES 2022-02-20 09:15:02 Doctor Unassigned, [place] [facility] CONSENT/REFUSAL FOR DIAGNOSIS AND TREATMENT 2022-02-20 09:14:47 Doctor Unassigned, [place] [facility] Encounters Start Date/Time End Date/Time Encounter Type Admission Type Attending [facility] Facility Care Department Encounter ID Source 2024-06-06 10:15:00 2024-06-06 10:15:00 Outpatient WENDY BROWNLEE [id number] Maria Elena Alcantara 2024-05-26 13:21:21 2024-05-26 13:21:21 Outpatient SFA SFA [id number] Tunde F Tahir 2024-05-26 00:00:00 2024-05-26 00:00:00 Outpatient Visit [facility] [id number] Tunde Quiñonez Tahir 2024-05-24 08:36:00 2024-05-24 09:39:00 Emergency X MYRNA SANDHU [facility] ERT [id number] [facility] 2024-05-24 08:36:00 2024-05-24 09:39:00 Emergency Myrna Sandhu [facility] 1.2.840.114 350.1.13.10 4.2.7.2.686 [id number] [facility] 2024-04-14 16:30:00 2024-04-14 16:30:00 Outpatient DARIEN LOBO MARIA ELENA [id number] Maria Elena [facility] 2024-04-12 11:00:00 2024-04-12 11:00:00 Outpatient MINNA ORTA MARIA ELENA [id number] [facility] 2024-04-12 11:00:00 2024-04-12 11:00:00 Outpatient KEMWENDY MARIA ELENA BECERRA [id number] [facility] 2024-04-12 00:00:00 2024-04-12 00:00:00 Outpatient SHARATH HALEY MARIA ELENA MARIA ELENA [id number] [facility] 2024-04-05 11:30:00 2024-04-05 11:30:00 Outpatient YAMILDARIEN MARIA ELENA BECERRA [id number] [facility] 2024-04-05 00:00:00 2024-04-05 00:00:00 Outpatient ALFREDONIURKADARIEN Olson MARIA ELENA [id number] [facility] 2024-03-28 00:00:00 2024-03-28 00:00:00 Outpatient ROYADARIEN Olson MARIA ELENA [id number] [facility] 2024-03-15 08:30:00 2024-03-15 08:30:00 Outpatient KEMWENDY MARIA ELENA BECERRA [id number] [facility] 2024-02-17 20:58:00 2024-02-17 21:44:00 Emergency X YARY CAMP [facility] ERT [id number] [facility] 2024-02-17 20:58:00 2024-02-17 21:44:00 Emergency Yary Camp G [facility] 1.2.840.114 350.1.13.10 4.2.7.2.686 [id number] [facility] 2024-02-09 13:10:00 2024-02-09 15:14:00 Emergency E TUNDE QUINTANILLA [facility] [id number] [address] [place] [address] 2024-02-08 20:38:00 2024-02-08 21:40:00 Emergency X KEISHA DAVENPORT [facility] ERT [id number] [facility] 2024-02-08 20:38:00 2024-02-08 21:40:00 Emergency Keisha Davenport [facility] 1.2.840.114 350.1.13.10 4.2.7.2.686 [id number] [facility] 2024-02-08 14:08:00 2024-02-08 17:06:00 Emergency Christina Villarreal [facility] 1.2.840.114 350.1.13.10 4.2.7.2.686 [id number] [facility] 2024-01-14 04:46:00 2024-01-14 06:23:00 Emergency X TERESSAJAC [facility] ERT [id number] [facility] 2024-01-14 04:46:00 2024-01-14 06:23:00 Emergency Gracielakashmir Jac Flo [facility] 1.2.840.114 350.1.13.10 4.2.7.2.686 [id number] [facility] 2023-12-22 21:51:00 2023-12-22 23:13:00 Emergency X SHERIAMADOUNIVIVIANA [facility] ERT [id number] [facility] 2023-12-22 21:51:00 2023-12-22 23:13:00 Emergency Adesahra Nimassielblade [facility] 1.2.840.114 350.1.13.10 4.2.7.2.686 [id number] [facility] 2023-12-21 19:36:00 2023-12-21 21:52:00 Emergency X QUENTIN MACIEL [facility] ERT [id number] [facility] 2023-12-21 19:36:00 2023-12-21 21:52:00 Emergency Quentin Maciel [facility] 1.2.840.114 350.1.13.10 4.2.7.2.686 [id number] [facility] 2023-11-10 19:29:00 2023-11-10 20:14:00 Emergency X CHRISTY HOLLIDAY [facility] ERT [id number] [facility] 2023-11-10 19:29:00 2023-11-10 20:14:00 Emergency Christy Holliday [facility] 1.2.840.114 350.1.13.10 4.2.7.2.686 [id number] [facility] 2023-10-27 00:49:00 2023-10-27 01:41:00 Emergency X JAC NAVARRO [facility] ERT [id number] [facility] 2023-10-27 00:49:00 2023-10-27 01:41:00 Emergency Jac Navarro [facility] 1.2.840.114 350.1.13.10 4.2.7.2.686 [id number] [facility] 2023-07-15 00:00:00 2023-07-15 00:00:00 Outpatient DARIEN LOBO [id number] Maria Elena [facility] 2023-06-16 11:30:00 2023-06-16 11:30:00 Outpatient DARIEN LOBO [id number] Maria Elena [facility] 2023-05-18 00:00:00 2023-05-18 00:00:00 Outpatient MARIA ELENA CHAN [id number] Maria Elena [facility] 2022-10-14 10:07:00 2022-10-14 14:39:00 Emergency X QUENTIN MACIEL [facility] ERT [id number] [facility] 2022-10-14 10:07:00 2022-10-14 14:39:00 Emergency Quentin Maciel [facility] 1.2.840.114 350.1.13.10 4.2.7.2.686 [id number] [facility] 2022-03-12 05:15:00 2022-03-12 06:41:00 Emergency X CHRISTY HOLLIDAY [facility] ERT [id number] [facility] 2022-03-12 05:15:00 2022-03-12 06:41:00 Emergency Christy Holliday [facility] 1.2.840.114 350.1.13.10 4.2.7.2.686 [id number] [facility] 2022-02-20 04:17:00 2022-02-20 07:16:00 Emergency X CHRISTY HOLLIDAY [facility] ERT [id number] [facility] 2022-02-20 04:17:00 2022-02-20 07:16:00 Emergency Christy Holliday [facility] 1.2.840.114 350.1.13.10 4.2.7.2.686 [id number] [facility] 2021-02-03 11:10:00 2021-02-03 11:10:00 Outpatient DENISE CAMPO [facility] [id number] [facility] 2021-01-13 11:20:00 2021-01-13 11:20:00 Outpatient [facility] [id number] [facility] 2020-11-10 08:20:00 2020-11-10 08:20:00 Outpatient KARLEY ESTRADA [facility] [id number] [facility] Results Test Description Test Time Test Comments Results Result Co mments Source [facility]AUTO [id number] 00:00:00* Test Item Value Reference Range Interpretation [...] ABS NUCLEATED RBCS (test cod e = 69204) 0.00 K/UL Tunde Quiñonez TahirCOMPREHENSIVE METABOLIC [id number] 00:00:00* Test Item Value Reference Range Interpretation Comme nts GLUCOSE (test code = 2217) 145 MG/DL BUN (test code = 2208) 8 MG/DL CREATININE (test code = 2214) 0.71 MG/DL eGFR (2020 CKD-EPI) (test code = 59599) 108 ML/MIN/1.73 CALC BUN/CREAT (test code = 2235) 11 RATIO SODIUM (test code = 2231) 142 MEQ/L POTASSIUM (test code = 2228) 4.6 MEQ/L CHLORIDE (test code = 2215) 100 MEQ/L CARBON DIOXIDE (test code = 2206) 27 MEQ/L CALCIUM (test code = 2209) 10.2 MG/DL PROTEIN, TOTAL (test code = 2229) 7.6 G/DL ALBUMIN (test code = 2201) 4.8 G/DL CALC GLOBULIN (test code = 2240) 2.8 G/DL CALC A/G RATIO (test code = 2234) 1.7 RATIO BILIRUBIN, TOTAL (test code = 2207) <0.2 MG/DL ALKALINE PHOSPHATASE (test code = 2204) 61 U/L AST (test code = 2218) 15 U/L ALT (test code = 2219) 11 U/L Tunde HaroHEMOGLOBIN [id number] 00:00:00* Test Item Value Reference Range Interpretation Comme nts HEMOGLOBIN A1c (test code = 50875) 5.5 % Tunde HaroYgislmFdmwvox2506-23-58 21:47:04* Test Item Value Reference Range Interpretation Comme nts ALCOHOL (test code = 3876751282) 329 mg/dL LOUISE (test code = LOUISE) <10 Jimmpmrf68-387 Toxic>100 Depression of MANAGER STYLE>400 [facility] + Lactic [id number] 20:52:47* Test Item Value Reference Range Interpretation Comme nts PH (test code = 2) 7.39 7.35-7.45 PCO2 (test code = 6707767313) 42 35-45 PO2 (test code = 2274233510) 76 80-100 L HCO3 (test code = 7442901924) 25 22-26 BE (test code = 2144572447) -0.1 -3.0-3.0 THB (test code = 6380386002) 14.3 g/dL 13.5-18.0 %O2HB (test code = 2399856564) 85.8 % 94.0-99.0 L %COHB ART (test code = 6255130137) 9.0 % 0.0-1.5 H %METHB ART (test code = 2843783061) 0.3 % 0.4-1.5 L VOL%O2 ART (test code = 7192349160) 17.3 % 15.0-23.0 NA (test code = 6725092143) 140 mmol/L 135-145 K+ (test code = 6926758698) 4.1 mmol/L 3.5-5.0 AC CA IONZ (test code = 5632487090) 4.50 mg/dL 4.50-5.30 GLUCOSE (test code = 4971850617) 105 mg/dL 70-110 LACTIC ACID (test code = 5775260702) 2.60 mmol/L 0.50-2.20 H Lab Interpretation (test cod e = 42031-1) Abnormal [facility] [id number] 20:34:14* Test Item Value Reference Range Interpretation Comme nts TROPONIN I (test code = 9831275180) 0.008 ng/mL <=0.034 LOUISE (test code = [...] of biotin. Lab Interpretation (test code = 28829-7) Normal [facility] [id number]-[id number] 20:31:35* Test Item Value Reference Range Interpretation Comme nts NT-proBNP (test code = 59755-3) 188 pg/mL <=125 LOUISE (test code = LOUISE) Result Indeterminate-Consid er causes of NT-proBNP elevation other than Heart failure such as acute coronary syndrome, pulmonary embolism, pulmonary hypertension, sepsis, stroke, and renal dysfunction. Lab Interpretation (test code = 29035-0) Abnormal [facility]. Metabolic Panel (31867)2024-02-08 20:21:10* Test Item Value Reference Range Interpretation Comme nts NA (test code = 5056406571) 135 mmol/L 135-145 K (test code = 9853816748) 4.5 mmol/L 3.5-5.0 CL (test code = 1508599661) 100 mmol/L 98-108 CO2 TOTAL (test code = 1796343807) 22 mmol/L 23-31 L AGAP (test code = 8402409213) 13 2-16 BUN (test code = 1612174268) 8 mg/dL 7-23 GLUCOSE (test code = 6537358581) 97 mg/dL 70-110 CREATININE (test code = 2160-0) 0.65 mg/dL 0.60-1.25 TOTAL BILI (test code = 4942696675) 0.4 mg/dL 0.1-1.1 CALCIUM (test code = 1456449686) 9.4 mg/dL 8.6-10.6 T PROTEIN (test code = 3826659916) 8.2 g/dL 6.3-8.2 ALBUMIN (test code = 8414838050) 4.7 g/dL 3.5-5.0 ALK PHOS (test code = 0546059456) 76 U/L 34-122 ALTv (test code = 1742-6) 33 U/L 5-50 AST(SGOT) (test code = 7617102494) 54 U/L 13-40 H eGFR (test code = 38018-3) 111.3 mL/min/1.73m2 CKD-EPI eGFR (2020). Assuming creatinine has been stable day-to-day for at least three months, the eGFR indicates Category G1 (>= 90 mL/min/1.73 m2) Lab Interpretation (test code = 44628-2) Abnormal [facility] Center[facility]esium2024-04-01 20:21:10* Test Item Value Reference Range Interpretation Comme nts MAGNESIUM (test code = 4081098391) 2.1 mg/dL 1.7-2.4 Lab Interpretation (test cod e = 93651-2) Normal [facility] CHEST 1 [id number] 20:07:21EXAM: XR CHEST 1 VW COMPARISON: 01/14/2024 HISTORY: sob FINDINGS: Lungs: Slightly hyperexpanded lungswith subtle progression of interstitialprominence. Trace pleural effusions could be present. Heart/Mediastinum: Stable cardiomegaly. Bones and soft tissues: No osseous abnormality is visualized.[facility] Cbc with [id number] 20:04:26* Test Item Value Reference Range Interpretation [...] 33.8 g/dL 31.2-35.0 RDW-SD (test code = 62365-3) 50.5 fL 38.5-51.6 RDW-CV (test code = 788-0) 14.3 % 12.1-15.4 PLT (test code = 777-3) 206 150-328 MPV (test code = 37677-6) 9.1 fL 9.8-13.0 L NRBC/100 WBC (test code = 4359055342) 0.0 0.0-10.0 NRBC x10^3 (test code = 6656386756) See_Comment [Automated messa ge] The system which generated this result transmitted reference range: 10*3/?L. The reference range was not used to interpret this result as normal/abnormal. GRAN MAT (NEUT) % (test code = 770-8) 81.0 % IMM GRAN % (test code = 1450132597) 1.20 % LYMPH % (test code = 736-9) 10.9 % MONO % (test code = 5905-5) 6.8 % EOS % (test code = 713-8) 0.0 % BASO % (test code = 706-2) 0.1 % GRAN MAT x10^3(ANC) (test code = 5853125793) 9.31 10*3/uL 1.99-6.95 H IMM GRAN x10^3 (test code = 3107230091) 0.14 10*3/uL 0.00-0.06 H LYMPH x10^3 (test code = 731-0) 1.25 10*3/uL 1.09-3.23 MONO x10^3 (test code = 742-7) 0.78 10*3/uL 0.36-1.02 EOS x10^3 (test code = 711-2) 0.06-0.53 L BASO x10^3 (test code = 704-7) 0.01-0.09 Lab Interpretation (test code = 69526-2) Abnormal [facility]OLIC PANEL (27740)2023-12-23 04:53:26* Test Item Value Reference Range Interpretation Comme nts NA (test code = 0039145916) 135 mmol/L 135-145 K (test code = 3529029188) 3.2 mmol/L 3.5-5.0 L CL (test code = 9424268381) 104 mmol/L 98-108 CO2 TOTAL (test code = 8500768638) 23 mmol/L 23-31 AGAP (test code = 7288813273) 8 2-16 BUN (test code = 7173914759) 11 mg/dL 7-23 GLUCOSE (test code = 4417189355) 82 mg/dL 70-110 CREATININE (test code = 2160-0) 0.64 mg/dL 0.60-1.25 TOTAL BILI (test code = 4034455496) 0.5 mg/dL 0.1-1.1 CALCIUM (test code = 2867074821) 8.8 mg/dL 8.6-10.6 T PROTEIN (test code = 2753838254) 6.7 g/dL 6.3-8.2 ALBUMIN (test code = 4112408239) 4.1 g/dL 3.5-5.0 ALK PHOS (test code = 2730630034) 46 U/L 34-122 ALTv (test code = 1742-6) 21 U/L 5-50 AST(SGOT) (test code = 5259302483) 43 U/L 13-40 H eGFR (test code = 44296-1) 111.8 mL/min/1.73m2 CKD-EPI eGFR (2020). Assuming creatinine has been stable day-to-day for at least three months, the eGFR indicates Category G1 (>= 90 mL/min/1.73 m2) Lab Interpretation (test code = 34751-8) Abnormal [facility]2024-[facility]-14 04:53:26* Test Item Value Reference Range Interpretation Comme nts LIPASE (test code = 2186735656) 105 U/L 0-220 Lab Interpretation (test cod e = 74613-5) Normal [facility] WITH [id number] 04:34:24* Test Item Value Reference Range Interpretation [...] 33.0 g/dL 31.2-35.0 RDW-SD (test code = 14805-0) 50.9 fL 38.5-51.6 RDW-CV (test code = 788-0) 13.7 % 12.1-15.4 PLT (test code = 777-3) 232 150-328 MPV (test code = 57541-7) 8.7 fL 9.8-13.0 L NRBC/100 WBC (test code = 2495780223) 0.0 0.0-10.0 NRBC x10^3 (test code = 6341815991) See_Comment [Automated messa ge] The system which generated this result transmitted reference range: 10*3/?L. The reference range was not used to interpret this result as normal/abnormal. GRAN MAT (NEUT) % (test code = 770-8) 58.8 % IMM GRAN % (test code = 2308447664) 0.90 % LYMPH % (test code = 736-9) 27.8 % MONO % (test code = 5905-5) 10.5 % EOS % (test code = 713-8) 1.3 % BASO % (test code = 706-2) 0.7 % GRAN MAT x10^3(ANC) (test code = 9937602099) 5.68 10*3/uL 1.99-6.95 IMM GRAN x10^3 (test code = 3312353935) 0.09 10*3/uL 0.00-0.06 H LYMPH x10^3 (test code = 731-0) 2.69 10*3/uL 1.09-3.23 MONO x10^3 (test code = 742-7) 1.02 10*3/uL 0.36-1.02 EOS x10^3 (test code = 711-2) 0.13 10*3/uL 0.06-0.53 BASO x10^3 (test code = 704-7) 0.07 10*3/uL 0.01-0.09 Lab Interpretation (test code = 02987-8) [facility]normal [facility] W [id number] 03:32:43Exam: CT Abdomen and Pelvis With Contrast, [...] acute osseous abnormality.Soft tissues: Small fat-containing inguinal hernias.[facility] CenterEthanol2024-02-13 02:32:24* Test Item Value Reference Range Interpretation Comme nts ALCOHOL (test code = 0583734482) 117 mg/dL LOUISE (test code = LOUISE) <10 Xkeadwdi95-989 Toxic>100 Depression of MANAGER STYLE>400 Fatalities Reported [facility] Center[facility]. Metabolic Panel (86629)2023-12-22 02:31:43* Test Item Value Reference Range Interpretation Comme nts NA (test code = 4237396267) 133 mmol/L 135-145 L K (test code = 4295969697) 3.3 mmol/L 3.5-5.0 L CL (test code = 9120365311) 102 mmol/L 98-108 CO2 TOTAL (test code = 0413507941) 25 mmol/L 23-31 AGAP (test code = 5679258371) 6 2-16 BUN (test code = 2508988329) 11 mg/dL 7-23 GLUCOSE (test code = 9090665493) 75 mg/dL 70-110 CREATININE (test code = 4530676975) 0.51 mg/dL 0.60-1.25 L TOTAL BILI (test code = 2342679844) 0.5 mg/dL 0.1-1.1 CALCIUM (test code = 4953273076) 8.9 mg/dL 8.6-10.6 T PROTEIN (test code = 6623374315) 7.2 g/dL 6.3-8.2 ALBUMIN (test code = 1371808932) 4.5 g/dL 3.5-5.0 ALK PHOS (test code = 9056474591) 46 U/L 34-122 ALTv (test code = 1742-6) 15 U/L 5-50 AST(SGOT) (test code = 6088715421) 24 U/L 13-40 eGFR (test code = 99864-7) 119.7 mL/min/1.73m2 CKD-EPI eGFR (2020). Assuming creatinine has been stable day-to-day for at least three months, the eGFR indicates Category G1 (>= 90 mL/min/1.73 m2) Lab Interpretation (test code = 73267-2) [facility] Test Item Value Reference Range Interpretation Comme nts LIPASE (test code = 8969081193) 121 U/L 0-220 Lab Interpretation (test cod e = 12629-5) [facility] / [id number] 02:21:02* Test Item Value Reference Range Interpretation Comme nts PROTIME PATIENT (test code = 5964-2) 10.5 10.1-12.6 INR (test code = 6301-6) 0.9 Normal INR <1.1; Warfarin Therapeutic range 2.0 to 3.0 or 2.5 to 3.5, depending upon the indications. Lab Interpretation (test code = 19289-5) [facility] [id number] 02:14:04* Test Item Value Reference Range Interpretation [...] 34.0 g/dL 31.2-35.0 RDW-SD (test code = 16578-1) 49.1 fL 38.5-51.6 RDW-CV (test code = 788-0) 13.5 % 12.1-15.4 PLT (test code = 777-3) 260 150-328 MPV (test code = 12163-6) 8.7 fL 9.8-13.0 L NRBC/100 WBC (test code = 9692315665) 0.0 0.0-10.0 NRBC x10^3 (test code = 8039175546) See_Comment [Automated messa ge] The system which generated this result transmitted reference range: 10*3/?L. The reference range was not used to interpret this result as normal/abnormal. GRAN MAT (NEUT) % (test code = 770-8) 64.3 % IMM GRAN % (test code = 0526179037) 0.90 % LYMPH % (test code = 736-9) 24.2 % MONO % (test code = 5905-5) 9.1 % EOS % (test code = 713-8) 0.7 % BASO % (test code = 706-2) 0.8 % GRAN MAT x10^3(ANC) (test code = 0767540474) 8.73 10*3/uL 1.99-6.95 H IMM GRAN x10^3 (test code = 9218589977) 0.12 10*3/uL 0.00-0.06 H LYMPH x10^3 (test code = 731-0) 3.28 10*3/uL 1.09-3.23 H MONO x10^3 (test code = 742-7) 1.23 10*3/uL 0.36-1.02 H EOS x10^3 (test code = 711-2) 0.10 10*3/uL 0.06-0.53 BASO x10^3 (test code = 704-7) 0.11 10*3/uL 0.01-0.09 H Lab Interpretation (test code = 15959-5) [facility] [id number] 10:16:22* Test Item Value Reference Range Interpretation Comments TROPONIN I (test code = 1069639862) 0.007 ng/mL See_Comment [Automated message] The system [...] of biotin. Lab Interpretation (test code = 36667-2) Normal [facility] [id number] 10:13:01* Test Item Value Reference Range Interpretation Comme nts NT-proBNP (test code = 5851090260) 52 pg/mL See_Comment [Automated message] The system which generated this result transmitted reference range: <=125. The reference range was not used to interpret this result as normal/abnormal. LOUISE (test code = LOUISE) Biotin has been reported to cause a negative bias, interpret results relative to patient's use of biotin. Lab Interpretation (test code = 98381-9) Normal [facility]. METABOLIC PANEL (53006)2022-02-20 10:04:02* Test Item Value Reference Range Interpretation Comme nts NA (test code = 7887206706) 137 mmol/L 135-145 K (test code = 9375650203) 3.6 mmol/L 3.5-5.0 CL (test code = 8276311013) 99 mmol/L 98-108 CO2 TOTAL (test code = 5666280640) 25 mmol/L 23-31 AGAP (test code = 7108572019) 2-16 BUN (test code = 0960290185) 6 mg/dL 7-23 L GLUCOSE (test code = 8465671095) 88 mg/dL 70-110 CREATININE (test code = 9577540407) 0.55 mg/dL 0.60-1.25 L TOTAL BILI (test code = 3688498133) 0.8 mg/dL 0.1-1.1 CALCIUM (test code = 5684688226) 8.9 mg/dL 8.6-10.6 T PROTEIN (test code = 4753432862) 7.5 g/dL 6.3-8.2 ALBUMIN (test code = 5491439993) 4.8 g/dL 3.5-5.0 ALK PHOS (test code = 5569073735) 113 U/L 34-122 ALTv (test code = 1742-6) 84 U/L 5-50 H AST(SGOT) (test code = 1143859432) 107 U/L 13-40 H eGFR (test code = 1930514669) mL/min/1.73m2 LOUISE (test code = LOUISE) Association [...] imaging tests). Lab Interpretation (test code = 34024-5) [facility], [id number] 10:03:21* Test Item Value Reference Range Interpretation Comme nts LIPASE (test code = 2286418067) 193 U/L 0-220 Lab Interpretation (test cod e = 55278-2) [facility] WITH [id number] 09:39:17* Test Item Value Reference Range Interpretation Comme nts WBC (test code = 6690-2) See_Comment [Automated [employer]] The system which generated this result transmitted reference range: 4.20 - 10.70 10*3/?L. The reference range was not used to interpret this result as normal/abnormal. RBC (test code = 789-8) See_Comment [Automated [employer]] The system which generated this result transmitted [...] g/dL 31.2-35.0 H RDW-SD (test code = 56098-9) 44.4 fL 38.5-51.6 RDW-CV (test code = 788-0) 11.9 % 12.1-15.4 L PLT (test code = 777-3) See_Comment [Automated messa ge] The system which generated this result transmitted reference range: 150 - 328 10*3/?L. The reference range was not used to interpret this result as normal/abnormal. MPV (test code = 81061-9) 9.2 fL 9.8-13.0 L NRBC/100 WBC (test code = 1045616182) See_Comment [Automated [employer] ssage] The system which generated this result transmitted reference range: 0.0 - 10.0 /100 WBCs. The reference range was not used to interpret this result as normal/abnormal. NRBC x10^3 (test code = 2278709650) <0.01 See_Comment [Automated messa ge] The system which generated this result transmitted reference range: 10*3/?L. The reference range was not used to interpret this result as normal/abnormal. GRAN MAT (NEUT) % (test code = 770-8) 69.9 % IMM GRAN % (test code = 6570355598) 1.50 % LYMPH % (test code = 736-9) 18.9 % MONO % (test code = 5905-5) 7.0 % EOS % (test code = 713-8) 1.9 % BASO % (test code = 706-2) 0.8 % GRAN MAT x10^3(ANC) (test code = 8705418945) 7.15 10*3/uL 1.99-6.95 H IMM GRAN x10^3 (test code = 5076858757) 0.15 10*3/uL 0.00-0.06 H LYMPH x10^3 (test code = 731-0) 1.93 10*3/uL 1.09-3.23 MONO x10^3 (test code = 742-7) 0.72 10*3/uL 0.36-1.02 EOS x10^3 (test code = 711-2) 0.19 10*3/uL 0.06-0.53 BASO x10^3 (test code = 704-7) 0.08 10*3/uL 0.01-0.09 Lab Interpretation (test code = 17166-8) Abnormal [facility] Notes Date/Time Note Provider Source Tunde Murcia [facility]2024-07-16 08:34:34 Patient here for a mass on his forehead, states it has been there for year and patient attempted to open it with a needle. Valentino Cage [facility]6027[facility]65 21:43:52 No answer in lobby. Angy Turner [facility]Vpnhdp1992-82-59 21:42:10 Pt's blood pressure cuff and pulse ox found lying on chair. Called for patient in lobby 2 times, no answer. No one in lobby. Sierra Samaniego [facility]Phimip1411-87-67 21:41:09 Pt not in lobby or in room. No answer in lobby. [facility] 21:14:29 Pt not in FT01- and no answer in lobby. T [facility] CenterUafsym3197-96-22 20:48:50 Pt arrives ambulatory to ED c/o SOB, right upper abdominal pain, and left leg and hip pain. Pt states that he has been on prednisone for about 5 yrs which had given him osteoporosis which is causing his leg pain. Reports hx of COPD, o2 is generally @ 91 he says. Leah Lizama [facility]Ruteqr3398-34-67 21:37:56 Pt left AMA Kylie Foster [place] 400144-04-01 21:32:00 Patient leaving AMA after self removing [...] with steady gait, appears in NAD T [facility] CenterPrqmfk5639-81-45 20:54:38 Pt states he uses O2 at home, portable O2 is broken [place] 228094-04-01 20:51:11 Pt ambulates with cane [place] 228094-04-01 20:43:13 CC: Pt arrives SOB after leaving [place] earlier in the shift. He reports he [...] powders and drank 3 beers." Leah King [facility] HealthNgkayj5367-32-12 17:04:05 Patient walked to the nurses station [...] department with a steady gait. Allison Zhang [facility]Omjczr6562-76-40 14:23:02 Pt ambulates with a cane Kylie Foster [facility]Rwycfq8932-75-72 14:13:15 Pt has taken 8-packets of BC [...] that helps." Face is flushed. [facility]ali Aviles [facility] CenterQwueam3885-58-03 06:16:25 Pt given printed and verbal discharge [...] to follow up with pcp and or machine steak tenderizer Advised to seek medical attention for new/prolonged/worsening of symptoms, No adverse reaction to meds given in ER noted upon discharge PIV d'cd, dressing to site, catheter in tact. 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 Leah King [facility] HealthDxfcdn5195-14-90 04:43:00 Associated Order(s): EKG-12 Lead ROUTINE ONCE Pre-Procedure Diagnose(s): Chest pain, unspecified type Post-Procedure Diagnose(s): Chest pain, unspecified type [facility] Emergency Department Note Patient Name: Randy Briones Date of : 1970 53 year old male Treatment Room: TX1/TX1 Primary Care Physician: Adrianna Michaels Patient Escorted by: Family [5] Mode of Arrival: Personal means [1] EMS Treatment Prior to ED Arrival: [facility] treatment: NTG [employer] treatment comments: 0.4 mg SL taken [employer]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 METABOLIC PANEL (64107) - Abnormal Result Value Ref Range NA [...] 1 VW TROPONIN I COMP. METABOLIC PANEL (31183) LIPASE, SERUM CBC WITH DIFF N-Terminal Pro-Bnp [...] ED Physician in the absence of a machine steak tenderizer: yes Previous ECG: Previous ECG: Compared to [...] signed by: Jac Navarro MD 01/14/24 0600 [facility] - Iiewqz5813-46-11 23:12:16 Pt given printed and verbal discharge [...] with steady gait, in no apparent distress, R [employer] Mary Magaña [place] 400144-02-13 21:41:55 Pt arrives ambulatory to ED reporting bleeding with stools and 10/10 abdominal pain. States he was here last night but had to leave before receiving results d/t having to work. Says the pain became worse so he came back in. ON Lizama [facility] HealthOeatan0458-68-64 21:31:00 Patient leaving AMA,discussed risks of leaving [...] gait, appears in no distress. ON Magaña [place] 400144-02-12 21:30:00 Pt wished to leave AMA. Pt states " yall were wonderful but 3am come real early." [facility]2024-02-12 21:26:22 Pt asking to go outside and smoke, wants to go home and eat. Pt educated on risks of leaving AMA. Provider informed pt is in pain. 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 Pt states his stool was normal consistency but continuous bright red blood. Denies this happening before. Pt is an alcoholic, had 2 beer [employer]IAN. States he vomits all the time but not something new today. [facility] Gabi Esqueda [place] 400144-01-02 20:13:39 Pt requesting to leave AMA. ERP notified. Pt counseled to remain, risks of leaving AMA including discussed with pt. Pt continued to decline further ER evaluation at this time. AMA papers signed, witnessed, and placed on patient's chart. Pt left ambulatory. VS stable, no ataxia noted, GCS 15, A&Ox4. ON Medrano [place] 400144-01-02 19:30:29 Patient arrived to ED c/o SOB and COPD exacerbation. Symptoms started this morning. Patient wears 3L NC at home. Patient is a smoker. Patient states having the chills, diarrhea, and vomiting. States having sharp pains in chest from coughing. ON Gomez [facility]
[2024-07-17] MEDS ORDERED: IPRATROPIUM BROM 0.5MG/2.5ML ONE (16:50)
[2024-07-17] MEDS ORDERED: ALBUTEROL 2.5 MG/3 ML NEB SOL ONE (16:50)
[2024-07-17] MEDS ORDERED: NA CHLORIDE 0.9% 0 ML ONE (16:50)
[2024-07-17] MEDS ORDERED: LORazepam 2 MG/ML VIAL ONE (16:56)
[2024-07-17 17:19] LABS: Absolute Lymphocytes (CBC) 1.2 K/uL (0.7-4.9); Absolute Monocytes 0.8 K/uL (0.1-1.3); Absolute Neutrophil 11.5 K/uL (1.8-8.0); Basophils % 0.2 % (0-1.3); Hematocrit 36.2 % (39.6-49.0); Hemoglobin 12.1 g/dL (13.6-17.9); MCH 32.3 pg (27.0-35.0); MCHC 33.4 g/dL (32.0-36.0); MCV 96.8 fL (80-100); MPV 6.4 fL (7.6-11.3); Monocytes % 5.6 % (3.3-12.3); Neutrophils % 85.2 % (41.7-73.7); Nucleated Red Blood Cells % 0.1 % (0-0); Platelets 258 thou/uL (152-406); RBC Red Blood Cell Count 3.74 M/uL (4.33-5.43); Red Cell Distribution Width 17.1 % (12.1-15.2)
[2024-07-17 17:36] LABS: ALT/SGPT 24 U/L (16-61); AST/SGOT 19 U/L (15-37); Albumin 3.8 g/dL (3.4-5.0); Albumin/Globulin Ratio 1.1 (1.1-1.8); Alkaline Phosphatase 84 U/L (45-117); Anion Gap 13.1 mEq/L (5.0-15.0); BUN Blood Urea Nitrogen 9 mg/dL (7-18); Bicarbonate 24 mEq/L (21-32); Bilirubin Total 0.3 mg/dL (0.2-1.0); Globulin 3.4 g/dL (2.3-3.5); Glomerular Filtration Rate 109 ml/min (=/>90); Glucose Level 144 mg/dL (74-106); Lipase 57 U/L (13-75); Magnesium 2.4 mg/dL (1.6-2.4); Potassium 4.1 mEq/L (3.5-5.1); Protein, Total 7.2 g/dL (6.4-8.2); Sodium Level 140 mEq/L (136-145)
[2024-07-17 17:39] LABS: Bilirubin Direct < 0.2 mg/dL (0-0.2); Bilirubin Indirect, Calculated 0.1 mg/dL (0.2-0.8)
--- NOTE | 2024-07-17 17:50 | EDPHYS ---
Physician Documentation [facility] Name: Randy Briones Age: 54 yrs Sex: Male : 1970 Arrival Date: 07/17/2024 Time: 16:24 Bed 16 Private MD: ED Physician Milton Reyes HPI: 07/17 18:41 This 54 yrs old Male presents to ER via Ambulatory with complaints of Breathing rt Difficulty. 18:41 Patient presents to the ED with continued dyspnea. Patient states that his body is "not rt acting right" denies chest pain. Does report drinking alcohol all day as well as using crack cocaine last night. Denies other acute complaints at this time, symptoms are moderate in severity, no other aggravating or elevating factors.. Historical: - Allergies: 16:32 Lisinopril; tm6 - PMHx: 16:32 Alcoholism; COPD; Hepatitis B (Hypertension); home 02 3LNC PRN; Hypertension; tm6 Osteoporosis; - PSHx: 16:32 Amputation of left index finger; tm6 - Immunization history:: Client reports receiving the 2nd dose of the Covid vaccine. - Infectious Disease History:: Denies. - Social history:: Smoking status: Patient reports the use of cigarette tobacco products, smokes one pack cigarettes per day. Patient uses alcohol, on a daily basis. - Family history:: not pertinent. ROS: 18:41 Constitutional: Negative for fever, chills, and weight loss, Cardiovascular: Negative rt for chest pain, palpitations, and edema, Abdomen/GI: Negative for abdominal pain, nausea, vomiting, diarrhea, and constipation, MS/Extremity: Negative for injury and deformity, Skin: Negative for injury, rash, and discoloration, Neuro: Negative for headache, weakness, numbness, tingling, and seizure, 18:41 Respiratory: Positive for cough, shortness of breath, Negative for Exam: 18:41 Head/Face: Normocephalic, atraumatic. Chest/axilla: Normal chest wall appearance and rt motion. Nontender with no deformity. No lesions are appreciated. Cardiovascular: Regular rate and rhythm with a normal S1 and S2. No gallops, murmurs, or rubs. Normal PMI, no JVD. No pulse deficits. Respiratory: Lungs have equal breath sounds bilaterally, clear to auscultation and percussion. No rales, rhonchi or wheezes noted. No increased work of breathing, no retractions or nasal flaring. Abdomen/GI: Soft, non-tender, with normal bowel sounds. No distension or tympany. No guarding or rebound. No evidence of tenderness throughout. Skin: Warm, dry with normal turgor. Normal color with no rashes, no lesions, and no evidence of cellulitis. MS/ Extremity: Pulses equal, no cyanosis. Neurovascular intact. Full, normal range of motion. 18:41 Constitutional: The patient appears unkempt, 18:41 ECG was reviewed by the Attending Physician. Vital Signs: 16:29 BP 163 / 86; Pulse 116; Resp 24; Temp 98.7; Pulse Ox 96% on R/A; Weight 115.21 kg; tm6 Height 5 ft. 4 in. ; Pain 10/10; 17:30 BP 143 / 69; Pulse 103; Resp 17; Temp 98.2; Pulse Ox 91% on R/A; me1 16:29 Body Mass Index 43.60 (115.21 kg, 162.56 cm) tm6 16:29 Pain Scale: Adult tm6 MDM: 16:40 Patient medically screened. rt 18:41 Differential diagnosis: Bronchospasm, pneumonia. Data reviewed: vital signs, nurses rt notes. ED course: Before patient's evaluation can be completed her medications were given, patient left without clinic staff. This frequently occurs, happened twice yesterday. I could not discuss restraints with the patient.. 07/17 16:47 Order name: Basic Metabolic Panel; Complete Time: 18:44 rt 07/17 16:47 Order name: CBC with Diff; Complete Time: 18:44 rt 07/17 16:47 Order name: LFT's; Complete Time: 18:44 rt 07/17 16:47 Order name: Magnesium; Complete Time: 18:44 rt 07/17 16:47 Order name: Troponin HS; Complete Time: 18:44 rt 07/17 16:47 Order name: Lipase; Complete Time: 18:44 rt 08 17:01 Order name: ETOH Level; Complete Time: 18:44 rt 07/17 17:34 Order name: CBC Smear Scan; Complete Time: 18:44 EDMS 07/17 16:47 Order name: XRAY Chest (1 view); Complete Time: 18:44 rt 07/17 16:47 Order name: Elbow Right 3 View XRAY; Complete Time: 18:44 rt 07/17 16:47 Order name: Cardiac monitoring; Complete Time: 16:55 rt 07/17 16:47 Order name: EKG - Nurse/Tech; Complete Time: 16:55 rt 07/17 16:47 Order name: IV Saline Lock; Complete Time: 17:12 rt 07/17 16:47 Order name: Labs collected and sent; Complete Time: 17:12 rt 07/17 16:47 Order name: O2 Per Protocol; Complete Time: 16:55 rt 07/17 16:47 Order name: O2 Sat Monitoring; Complete Time: 16:55 rt EC:41 Rate is 107 beats/min. Rhythm is regular, Sinus tachycardia with No ectopy. QRS [place] is rt Normal. PA interval is normal. QRS interval is normal. QT interval is normal. No Q waves. T waves are Normal. No ST changes noted. Administered Medications: 16:54 Drug: DuoNeb Nebulize (3:1) (2.5 mg - 0.5 mg) 3 ml Nebulizer once Route: Nebulizer; tm6 18:02 Follow up: Response: No adverse reaction; Wheezing diminished me1 17:12 Drug: Ativan IVP 1 mg IVP once Route: IVP; Site: left antecubital; me1 18:02 Follow up: Response: No adverse reaction; Anxiety decreased me1 17:12 Drug: NS 0.9% IV 1000 ml IV at 1 bolus Per protocol; 1000 mL bolus Route: IV; Rate: 1 me1 bolus; Site: left antecubital; 18:02 Follow up: Response: No adverse reaction; IV Status: Completed infusion me1 Disposition Summary: 07/17/24 17:50 Discharge Ordered Notes: Location: Home rt Problem: chronic rt Symptoms: are unchanged rt Condition: Undetermined rt Diagnosis - Dyspnea rt - Cocaine abuse rt Followup: rt - With: Private Physician - When: 2 - 3 days - Reason: Forms: - Medication Reconciliation Form rt - Antibiotic Education rt - Prescription Opioid Use rt - Patient Portal Instructions rt - Leadership Thank You Letter rt Signatures: Dispatcher [employer] Milton Brower MD MD rt Radha Bliss RN RN ok1 Leland Graf RN RN tm6 Corrections: (The following items were deleted from the chart) 16:48 16:47 BASIC METABOLIC PANEL+C.LAB.BRZ ordered. EDMS EDMS 16:48 16:47 CBC+H.LAB.BRZ ordered. EDMS EDMS 16:48 16:47 HEPATIC FUNCTION+C.LAB.BRZ ordered. EDMS EDMS 16:48 16:47 MAGNESIUM+C.LAB.BRZ ordered. EDMS EDMS 16:48 16:47 Troponin High Sensitivity+C.LAB.BRZ ordered. EDMS EDMS 16:48 16:47 LIPASE+C.LAB.BRZ ordered. EDMS EDMS
--- NOTE | 2024-07-17 17:50 | ER ---
Nurse's Notes [facility] Name: Randy Briones Age: 54 yrs Sex: Male : 1970 Arrival Date: 07/17/2024 Time: 16:24 Bed 16 Private MD: Diagnosis: Dyspnea;Cocaine abuse Presentation: 07/17 16:31 Chief complaint: Patient states: started getting short of breath a few days ago. I've tm6 come up here, but I've just left. Chief complaint: Patient states: started getting short of breath a few days ago. I've come up here, but I've just left. Coronavirus screen: Vaccine status: Patient reports receiving the 2nd dose of the covid vaccine. Ebola Screen: Patient negative for fever greater than or equal to 101.5 degrees Fahrenheit, and additional compatible Ebola Virus Disease symptoms Patient denies exposure to infectious person. Patient denies travel to an Ebola-affected area in the 21 days before illness onset. No symptoms or risks identified at this time. Initial Sepsis Screen: Does the patient meet any 2 criteria? RR > 20 per min. HR > 90 bpm. Does the patient have a suspected source of infection? No. Patient's initial sepsis screen is negative. Risk Assessment: Do you want to hurt yourself or someone else? Patient reports no desire to harm self or others. Onset of symptoms was July 15, 2024. 16:31 Method Of Arrival: Ambulatory tm6 16:31 Acuity: CANDACE 3 tm6 Triage Assessment: 16:32 General: Appears uncomfortable, Behavior is cooperative, anxious. Pain: Complains of tm6 pain in abdomen Pain currently is 10 out of 10 on a pain scale. Pain began 2-3 days ago. EENT: No signs and/or symptoms were reported regarding the EENT system. Neuro: Level of Consciousness is awake, alert, obeys commands, Oriented to person, place, time, situation. Cardiovascular: Patient's skin is warm and dry. Respiratory: Reports shortness of breath at rest on exertion labored breathing Airway is patent Respiratory effort is labored, Respiratory pattern is symmetrical, Onset: The symptoms/episode began/occurred a few days ago, the patient has moderate shortness of breath. GI: Abdomen is round Reports lower abdominal pain, upper abdominal pain. : No signs and/or symptoms were reported regarding the genitourinary system. Derm: No signs and/or symptoms reported regarding the dermatologic system. Musculoskeletal: No signs and/or symptoms reported regarding the musculoskeletal system. Historical: - Allergies: 16:32 Lisinopril; tm6 - PMHx: 16:32 Alcoholism; COPD; Hepatitis B (Hypertension); home 02 3LNC PRN; Hypertension; tm6 Osteoporosis; - PSHx: 16:32 Amputation of left index finger; tm6 - Immunization history:: Client reports receiving the 2nd dose of the Covid vaccine. - Infectious Disease History:: Denies. - Social history:: Smoking status: Patient reports the use of cigarette tobacco products, smokes one pack cigarettes per day. Patient uses alcohol, on a daily basis. - Family history:: not pertinent. Screenin:40 [facility] ED Fall Risk Assessment (Adult) History of falling in the last 3 months, me1 including since admission No falls in past 3 months (0 pts) Confusion or Disorientation No (0 pts) Intoxicated or Sedated No (0 pts) Impaired Gait No (0 pts) Mobility Assist Device Used No (0 pt) Altered Elimination No (0 pt) Score/Fall Risk Level 0 - 2 = Low Risk Maintained a safe environment, Provided non-skid footwear, Hourly rounding (assess needs \T\ fall precautionary measures) done. Abuse screen: Denies threats or abuse. Nutritional screening: No deficits noted. Tuberculosis screening: No symptoms or risk factors identified. Assessment: 16:40 General: Appears uncomfortable, Behavior is cooperative, appropriate for age, anxious, me1 Reports started getting short of breath a few days ago. I've come up here, but I've just left. Pain: Complains of pain in abdomen Pain does not radiate. Pain currently is 10 out of 10 on a pain scale. Quality of pain is described as burning, Pain began 2-3 days ago. Is continuous. Neuro: Level of Consciousness is awake, alert, obeys commands, Oriented to person, place, time, situation, Appropriate for age. Cardiovascular: Patient's skin is warm and dry. Rhythm is regular. Respiratory: Airway is patent Respiratory effort is even, labored, Respiratory pattern is symmetrical, tachypnea Breath sounds are diminished bilaterally. GI: No signs and/or symptoms were reported involving the gastrointestinal system. : No signs and/or symptoms were reported regarding the genitourinary system. EENT: No signs and/or symptoms were reported regarding the EENT system. Derm: Skin is intact, Skin is pink, warm \T\ dry. Musculoskeletal: No signs and/or symptoms reported regarding the musculoskeletal system. Vital Signs: 16:29 BP 163 / 86; Pulse 116; Resp 24; Temp 98.7; Pulse Ox 96% on R/A; Weight 115.21 kg; tm6 Height 5 ft. 4 in. ; Pain 10/10; 17:30 BP 143 / 69; Pulse 103; Resp 17; Temp 98.2; Pulse Ox 91% on R/A; me1 16:29 Body Mass Index 43.60 (115.21 kg, 162.56 cm) tm6 16:29 Pain Scale: Adult tm6 ED Course: 16:24 Patient arrived in ED. mr 16:32 Triage completed. tm6 16:32 Arm band placed on left wrist. tm6 16:34 Milton Reyes MD is Attending Physician. rt 16:40 Patient has correct armband on for positive identification. Bed in low position. Call me1 light in reach. Side rails up X2. Provided Education on: POC. Verbalized understanding. . Client placed on continuous cardiac and pulse oximetry monitoring. NIBP monitoring applied. 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 Pulse ox on. NIBP on. 16:40 No provider procedures requiring assistance completed. me1 16:47 Radha Bliss, RN is Primary Nurse. me1 16:55 EKG done, by ED staff, reviewed by Milton Reyes MD. tm6 17:12 Inserted saline lock: 22 gauge in right forearm, using aseptic technique. Blood cc6 collected. Flushed with 10 mL NS. 17:13 Initial lab(s) drawn, by or, sent to lab. cc6 17:52 XRAY Chest (1 view) In Process Unspecified. EDMS 17:52 Elbow Right 3 View XRAY In Process Unspecified. EDMS 18:04 IV discontinued, intact, bleeding controlled, No redness/swelling at site. Pressure me1 dressing applied. Administered Medications: 16:54 Drug: DuoNeb Nebulize (3:1) (2.5 mg - 0.5 mg) 3 ml Nebulizer once Route: Nebulizer; tm6 18:02 Follow up: Response: No adverse reaction; Wheezing diminished me1 17:12 Drug: Ativan IVP 1 mg IVP once Route: IVP; Site: left antecubital; me1 18:02 Follow up: Response: No adverse reaction; Anxiety decreased me1 17:12 Drug: NS 0.9% IV 1000 ml IV at 1 bolus Per protocol; 1000 mL bolus Route: IV; Rate: 1 me1 bolus; Site: left antecubital; 18:02 Follow up: Response: No adverse reaction; IV Status: Completed infusion me1 Medication: 16:40 VIS not applicable for this client. me1 Outcome: 17:50 Discharge ordered by MD. rt 17:59 Patient left the ED. eb 18:04 Discharged to home ambulatory, me1 18:04 Condition: stable 18:04 Discharge instructions given to patient, Instructed on discharge instructions, follow up and referral plans. Demonstrated understanding of instructions, follow-up care, Signatures: Dispatcher [employer] EDMS Bianca Canela, Reg Paddy mr CovarrubiasMarylin Ryan, MD MD rt Radha Bliss RN RN me1 Leland Graf RN RN tm6 Richa Trimble 6
--- NOTE | 2024-07-17 17:57 | RAD REPORT ---
EXAM DESCRIPTION: RAD - Chest Single View - 07/17/2024 5:51 pm CLINICAL HISTORY: DYSPNEA Chest pain. COMPARISON: Chest Single View dated 07/16/2024; Chest Single View dated 05/07/2024; Chest Single View d ated 05/07/2024; Chest Single View dated 05/04/2024 FINDINGS: Portable technique limits examination quality. The lungs are grossly clear. The heart is mildly enlarged in size. No displaced fractures. IMPRESSION: No acute intrathoracic process suspected.
--- NOTE | 2024-07-17 17:58 | RAD REPORT ---
EXAM DESCRIPTION: RAD - Elbow Right 3 View - 07/17/2024 5:51 pm CLINICAL HISTORY: PAIN COMPARISON: No comparisons FINDINGS: No acute fracture or dislocation.
[2024-07-17 18:11] VITALS: BP 163/86; TEMP 98.7; O2SAT 96
[2024-07-17 18:13] LABS: Blood Morphology Comment NOT SEEN (NOT SEEN); Platelet Estimate ADEQ; White Blood Cell Scan N (OK)
== END 2024-07-17 17:59 | disposition home or self-care (01) ==
LOC: ER 16:24
DX: R06.00 Dyspnea, unspecified (principal); F14.90 Cocaine use, unspecified, uncomplicated; F10.90 Alcohol use, unspecified, uncomplicated; J44.9 Chronic obstructive pulmonary disease, unspecified; F17.210 Nicotine dependence, cigarettes, uncomplicated
CPT/HCPCS: 96361; 85025; 80048; 36415; 83735; 80076; 84484; 83690; 71045; 73080; 96374; 99285; 82077; J7613; J7644; J7030

== ENCOUNTER 2024-08-25 06:54 | Emergency (ER) | payer OTHER ==
[2012-06-09 17:20] VITALS: BP 136/71
--- OUTSIDE RECORDS SUMMARY | 2024-08-25 07:00 | XMS REPORT | Continuity of Care Document ---
Author Name Unknown Address [address] [facility] [address] [place] [address] [facility] Address [address] [facility] [place] [address] Care Team Providers Care Healthcare Recruiter Name Role Phone Juan Daniel [facility] Primary Care Physician [phone] YARY CAMP Attending Clinician Unavailable YARY CAMP Attending Clinician Unavailable Yary Camp NP Attending Clinician [phone] JULIEN MARKS Attending Clinician Unavailable Blu Mcguire MD Attending Clinician [phone] Shay Stinson MD Attending Clinician [phone] Julien Marks DO Attending Clinician [phone] BLU MCGUIRE Attending Clinician Unavailable BLU MCGUIRE Attending Clinician Unavailable WENDY BROWNLEE Attending Clinician UnaMYRNA Bernard Attending Clinician Unavailable DARIEN LOBO Attending Clinician Unavailable MINNA ORTA Attending Clinician Unavailab SHARATH Isbell Attending Clinician Unavailable TUNDE QUINTANILLA Attending Clinician Unavailable KEISHA DAVENPORT Attending Clinician Unauriah Davenport MD, Keisha Jackson Attending Clinician + Christina Victoria Sandrita Attending Clinician [phone] JAC NAVARRO Attending Clinician Unavailable Jac Navarro MD Attending Clinician [phone] CAILIN ROWE Attending Clinician Unavailab QUENTIN Boothe Attending Clinician Unavailable Quentin Hastings DO Attending Clinician [phone] CHRISTY HOLLIDAY Attending Clinician Unavailable Christy Holliday MD Attending Clinician [phone] MARIA ELENA CHAN Attending Clinicia n Unavailable DENISE SUNG Attending Clinician Unavailable KARLEY ADAMS Attending Clinician Unavailable JULIEN MARKS Admitting Clinician Unavailable Julien Marks DO Admitting Clinician [phone] BLU MCGUIRE Admitting Clinician Unavailable JAC NAVARRO Admitting Clinician Unavailable QUENTIN HASTINGS Admitting Clinician Unavailable CHRISTY HOLLIDAY Admitting Clinician Unavailable Payers Payer Name Policy Type Policy Number Effective Date Expirati on Date Source HIM [facility] O [id number] 2024 00:00:00 [facility]INOD LEE COPAY FOCUS 9 [id number] 2024 00:00:00 [employer] OUT OF NETWORK [id number] 2023 00:00:00 [employer] 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 9 [id number] 2023 00:00:00 Problems Condition Name Condition Details Condition Category Status Onset Date Resolution Date Last Treatment Date Treating Clinician Comments Source Community acquired pneumonia of right lower lobe of lung Community acquired pneumonia of right lower lobe of lung Disease Active 07-18 00:00: 00 [facility] Acute exacerbati on of chronic obstructiv e [...] History of tobacco use Smokes tobacco daily [facility] Alcoholic beverage intake 2024-07-23 00:00:00 2024-07-23 00:00:00 4.29 /d [facility] History of Social function 2024-07-19 00:00:00 2024-07-19 00:00:00 [facility] Tobacco use and exposure 2024-07-18 00:00:00 2024-07-18 00:00:00 User of smokeless tobacco [facility] Tobacco Comment 2024-07-18 00:00:00 2024-07-18 00:00:00 trying to quit [facility] Alcohol Comment 2024-07-18 00:00:00 2024-07-18 00:00:00 2 1/2 cases daily [facility] Alcohol intake 2024-02-08 00:00:00 2024-02-08 00:00:00 4.29 /d [facility] Exposure to SARS-CoV-2 (event) 2022-10-04 00:00:00 2022-10-14 10:25:00 Not sure [facility] Sex assigned at 1970 00:00:00 1970 00:00:00 [facility] Smoking Status Start Date Stop Date Source Smokes tobacco daily 2024-07-18 00:00:00 [facility] Medications Ordered Medication Name Filled Medication Name Start Date Stop Date Current Medication? Ordering Clinician Indication Dosage Frequency Signature (SIG) Comments Components Source ketorolac (TORADOL) injection 30 mg 07-23 19:30: 00 07-23 18:21 :00 No 30mg 30 mg, Slow IV Push, ONCE, 1 dose, On 07/23/24 at 1430, Routine [facility] pantoprazol e (PROTONIX) injection 40 mg 07-23 17:30: 00 07-23 17:03 :00 No 40mg 40 mg, Slow IV Push, ONCE, 1 dose, On 07/23/24 at 1230 [facility] ipratropium -albuteroL (DUONEB) 0.5 mg-3 mg(2.5 mg base)/3 mL nebulizer solution 3 mL 07-23 17:15: 00 07-23 17:26 :00 No 3mL 3 mL, Inhalation , ONCE NOW, 1 dose, On 07/23/24 at 1215, Routine [facility] methylpredn isolone sod succ (SOLU-MEDRO L) injection 125 mg 07-23 17:15: 00 07-23 17:01 :00 No 125mg 125 mg, Intravenou s, ONCE, 1 dose, On 07/23/24 at 1215, 2 mL [facility] NaCl 0.9% (NS) bolus infusion 1,000 mL 07-23 17:15: 00 07-23 17:30 :00 No 1000mL at 999 mL/hr, 1,000 mL, IV Infusion, ONCE, 1 dose, On 07/23/24 at 1215, [facility] piperacilli n-tazobacta m (ZOSYN) 3.375 g in NaCl 0.9% (NS) 100 mL MINI-BAG 07-23 16:45: 00 07-23 17:40 :00 No 3.375g 3.375 g, IV Piggyback, ONCE, 1 dose, On 07/23/24 at 1145, Administer over 30 Minutes, 100 mL, Reason for Anti-Infec tive: Documented Infection, Documented Infection Site: Respirator y, Duration of Therapy: Once (ED) [facility] oxazepam (SERAX) capsule 15 mg 07-20 19:50: 52 07-21 19:59 :00 Yes 15mg 15 mg, Oral, Q12H TAPER, 2 doses, First dose on Thu07/20/24 at 1500, Last dose on Thu07/21/24 at 0300, Routine [facility] levalbutero l (XOPENEX) nebulizer solution 0.63 mg 07-20 19:00: 00 Yes .63mg 0.63 mg, Inhalation , TID, First dose on Thu07/20/24 at 1400, Until Discontinu ed, Routine [facility] spironolact one (ALDACTONE) tablet 25 mg 07-20 14:00: 00 Yes 25mg 25 mg, Oral, DAILY, First dose on Thu07/20/24 at 0900, Until Discontinu ed, [facility] Potassium Bicarb-Citr ic Acid (EFFER-K) effervescen t tablet 40 mEq 07-20 13:00: 00 07-21 12:59 :00 Yes 40meq 40 mEq, Oral, BID, 2 doses, First dose on Thu07/20/24 at 0800, Last dose on Thu07/20/24 at 2000, Routine [facility] amLODIPine (NORVASC) tablet 10 mg 07-19 22:30: 00 Yes 10mg 10 mg, Oral, DAILY, First dose on Thu07/19/24 at 1730, Until Discontinu ed, Routine [facility] hydralAZINE (APRESOLINE ) injection 10 mg 07-19 22:16: 33 Yes 10mg 10 mg, Slow IV Push, Q6HPRN, Starting on Thu07/19/24 at 1716, Until Discontinu ed, Routine, DBP=>100; SBP=>160, For SBP > 160 [facility] pantoprazol e (PROTONIX) injection 40 mg 07-19 21:30: 00 Yes 40mg 40 mg, Slow IV Push, Q24H, First dose on Thu07/19/24 at 1630, Until Discontinu ed [facility] bisacodyL (DULCOLAX) suppository 10 mg 07-19 21:15: 00 07-19 21:04 :00 No 10mg 10 mg, Rectal, ONCE, 1 dose, On Thu07/19/24 at 1615, Routine [facility] diphenhydrA MINE:lidoca ine 2% viscous:maa lox 1:1:1 ([facility]) oral suspension 15 mL 07-19 21:15: 00 07-19 21:02 :00 No 15mL 15 mL, Oral, ONCE, 1 dose, On Thu07/19/24 at 1615, Routine [facility] LORazepam (ATIVAN) injection 1 mg 07-19 20:24: 20 Yes 1mg 1 mg, Slow IV Push, Q2HPRN, Starting on Thu07/19/24 at 1524, Until Discontinu ed, Routine, withdrawl [facility] predniSONE (DELTASONE) tablet 10 mg 07-19 14:00: 00 Yes 10mg 10 mg, Oral, DAILY, First dose on Thu07/19/24 at 0900, Until Discontinu ed, Routine [facility] HYDROcodone -acetaminop hen (NORCO) 10-325 mg tablet 1 tablet 07-19 12:53: 33 Yes 1{tbl} 1 tablet, Oral, Q6HPRN, Starting on Thu07/19/24 at 0753, Until Discontinu ed, Routine, Pain (scale 4-6) [facility] budesonide- formoteroL (SYMBICORT) 160-4.5 mcg/actuati on inhaler 2 Puff 07-19 01:00: 00 Yes 2{puff} 2 Puff, Inhalation , BID, First dose on Thu07/18/24 at 2000, Until Discontinu ed, Routine [facility] ipratropium -albuteroL (DUONEB) 0.5 mg-3 mg(2.5 mg base)/3 mL nebulizer solution 3 mL 2024-0 9-10 01:00: 00 07-20 16:26 :23 No 3mL 3 mL, Inhalation , QID, First dose on Thu07/18/24 at 2000, Until Discontinu ed, Routine [facility] D5W 0.45% NaCl (1/2NS) 1 L + KCL 20 mEq 07-18 22:30: 00 Yes IV Infusion, at 75 mL/hr, CONTINUOUS , Starting on Thu07/18/24 at 1730, Until Discontinu ed, Routine [facility] ampicillin- sulbactam (UNASYN) 3 g in NaCl 0.9% (NS) 100 mL MINI-BAG 07-18 22:30: 00 07-19 22:16 :09 No 3g 3 g, IV Piggyback, Q6H ABX, 20 doses, First dose on Thu07/18/24 at 1730, Last dose on Thu07/23/24 at 1130, Administer over 30 Minutes, 100 mL, Reason for Anti-Infec tive: Empiric Therapy for Suspected Infection, Empiric Therapy Site: Respirator y, Duration of therapy: 5 days [facility] enoxaparin (LOVENOX) injection 40 mg 07-18 22:00: 00 Yes 40mg 40 mg, Subcutaneo us, DAILY, First dose on Thu07/18/24 at 1700, Until Discontinu ed, Routine [facility] nicotine (NICODERM) 21 mg/24 hr patch 1 Patch 07-18 19:15: 00 Yes 1{patch } 1 Patch, Topical, Administer over 24 Hours, Q24H, First dose on Thu07/18/24 at 1415, Until Discontinu ed, Routine [facility] dexMEDEtomi dine 200 mcg in 0.9 % NaCl 50 mL (PRECEDEX) RTU IV infusion 07-18 16:39: 48 07-19 14:53 :03 No .2ug/kg /h 0.2-1.5 mcg/kg/hr ?84 kg (4.2-31.5 mL/hr), IV Infusion, TITRATE, Sedation-R ASS score (0 to -1), Starting on Thu07/18/24 at 1139, Initiate infusion at 0.2 mcg/kg/hr and titrate by 0.1 mcg/kg/hr every 30 minutes to goal sedation score. Maximum dose = 1.5 mcg/kg/hr. If goal not maintained at maximum allowed dose, contact prescriber . [facility] ketorolac (TORADOL) injection 30 mg 07-18 14:45: 00 07-18 15:15 :00 No 30mg 30 mg, Slow IV Push, ONCE, 1 dose, On Thu07/18/24 at 0945, [facility] NaCl 0.9% (NS) bolus infusion 1,000 mL 07-18 14:30: 00 07-18 16:30 :00 No 1000mL at 999 mL/hr, 1,000 mL, IV Infusion, ONCE, 1 dose, On Thu07/18/24 at 0930, [facility] thiamine mononitrate (VITAMIN B-1 (MONONITRAT E)) tablet 100 mg 07-18 14:00: 00 Yes 100mg 100 mg, Oral, DAILY, First dose on Thu07/18/24 at 0900, Until Discontinu ed, Routine [facility] foLIC acid (FOLATE) tablet 1 mg 07-18 14:00: 00 Yes 1mg 1 mg, Oral, DAILY, First dose on Thu07/18/24 at 0900, Until Discontinu ed, Routine [facility] methylpredn isolone sod succ (SOLU-MEDRO L) injection 125 mg 07-18 14:00: 00 07-18 13:12 :00 No 125mg 125 mg, Intravenou s, ONCE, 1 dose, On Thu07/18/24 at 0900, 2 mL [facility] oxazepam (SERAX) capsule 15 mg 07-18 13:50: 52 Yes 15mg 15 mg, Oral, Q4HPRN, Starting on Thu07/18/24 at 0850, Until Discontinu ed, Routine, Only while awake for DBP equal to or greater than 100, HR equal to or greater than 100. [facility] proMETHazin e (PHENERGAN) 12.5 mg in NS 50 mL IV piggyback (CNR) 07-18 13:45: 00 07-18 14:29 :00 No 12.5mg 12.5 mg, IV Piggyback, at 200 mL/hr Administer over 15 Minutes, ONCE, 1 dose, On Thu07/18/24 at 0845, [facility] cefTRIAXone (ROCEPHIN) 1,000 mg in NaCl 0.9% (NS) 100 mL MINI-BAG 07-18 13:30: 00 07-18 14:13 :00 No 1000mg 1,000 mg, IV Piggyback, ONCE, 1 dose, On Thu07/18/24 at 0830, Administer over 30 Minutes, 100 mL, Reason for Anti-Infec tive: Documented Infection, Documented Infection Site: Respirator y, Duration of Therapy: Once (ED) [facility] ipratropium -albuteroL (DUONEB) 0.5 mg-3 mg(2.5 mg base)/3 mL nebulizer solution 3 mL 07-18 13:30: 00 07-18 12:47 :00 No 3mL 3 mL, Inhalation , ONCE, 1 dose, On Thu07/18/24 at 0830, [facility] aspirin tablet 325 mg 07-18 13:15: 00 07-18 12:37 :00 No 325mg 325 mg, Oral, ONCE, 1 dose, On Thu07/18/24 at 0815, STAT [facility] NaCl 0.9% (NS) bolus infusion 1,000 mL 07-18 13:00: 00 07-18 14:57 :00 No 1000mL at 999 mL/hr, 1,000 mL, IV Infusion, ONCE, 1 dose, On Thu07/18/24 at 0800, [facility] LORazepam (ATIVAN) injection 1 mg 07-18 12:45: 00 07-18 12:46 :00 No 1mg 1 mg, Slow IV Push, ONCE, 1 dose, On Thu07/18/24 at 0745, STAT [facility] famotidine (PEPCID (PF)) injection 20 mg 07-18 12:15: 00 07-18 12:37 :00 No 20mg 20 mg, Slow IV Push, ONCE, 1 dose, On Thu07/18/24 at 0715, [facility] ondansetron (ZOFRAN (PF)) injection 8 mg 07-18 12:15: 00 07-18 12:37 :00 No 8mg 8 mg, Slow IV Push, ONCE, 1 dose, On Thu07/18/24 at 0715, [facility] albuterol sulfate HFA 90 mcg/actuati on aerosol inhaler 05-26 00:00: 00 Yes 1mcg/ac tuation [facility] ipratropium 0.5 mg-albutero l 3 mg (2.5 mg base)/3 mL nebulizatio n soln 05-26 00:00: 00 Yes 1mg base)/3 mL [facility] prednisone 10 mg tablet 05-26 00:00: 00 Yes 1mg [facility] naltrexone 50 mg tablet 05-26 00:00: 00 Yes 1mg [facility] spironolact one 25 mg tablet 05-26 00:00: 00 Yes 1mg [facility] pantoprazol e 40 mg tablet,vel yed [...] 1 dose, On Thu05/24/24 at 0900, [facility] mupirocin 2 % ointment 05-24 00:00: 00 Yes [id number] 6 Apply to area(s) 3 (three) times daily. [facility] cephALEXin 500 mg tablet 05-24 00:00: 00 06-01 04:59 :00 No [id number] 6 500mg Take 1 tablet by mouth 4 (four) times daily for 7 days. [facility] ketorolac (TORADOL) injection 30 mg 02-17 03:15: [...] 02-07 22:30: 00 02-07 22:30 :00 No [id number] 100mL 100 mL, Intravenou s, ONCE, 1 [...] ONCE, 1 dose, On Thu02/08/24 at 1615, [facility] magnesium sulfate in water 2 gram/50 [...] ONCE, 1 dose, On Thu02/08/24 at 1530, [facility] HYDROcodone -acetaminop hen (NORCO) 10-325 mg tablet 1 tablet 01-13 13:15: 00 01-13 12:15 :00 No 1{tbl} 1 tablet, Oral, ONCE, 1 dose, On Thu01/14/24 at 0715, [facility] ipratropium -albuteroL (DUONEB) 0.5 mg-3 mg(2.5 mg base)/3 mL nebulizer solution 3 mL 01-13 13:00: 00 01-13 11:53 :00 No 3mL 3 mL, Inhalation , ONCE NOW, 1 dose, On Thu01/14/24 at 0700, [facility] ondansetron (ZOFRAN (PF)) injection 4 mg 01-13 11:30: 00 01-13 11:37 :00 No 4mg 4 mg, Slow IV Push, ONCE, 1 dose, On Thu01/14/24 at 0530, [facility] morpHINE (4 mg/mL) injection 4 mg 01-13 11:30: 00 01-13 11:37 :00 No 4mg 4 mg, Slow IV Push, ONCE, 1 dose, On Thu01/14/24 at 0530, STAT [facility] azithromyci n (ZITHROMAX Z-PORTER) 250 mg tablet 01-13 00:00: 00 02-16 00:00 :00 No [id number] Take 500 mg on day 1 then 250 mg on days 2-5 [facility] predniSONE 20 mg tablet 01-13 00:00: 00 02-16 00:00 :00 No [id number] Take 1 po tid x 2 days, [...] ONCE, 1 dose, On Thu12/22/23 at 2230, [facility] maalox:diph enhydrAMINE :lidocaine 2 % viscous 1:1:1 (FIRST-MOUT [facility] BLM) oral suspension 15 mL 12-23 04:15: 00 12-23 04:17 :00 No 15mL 15 mL, Oral, ONCE, 1 dose, On Thu12/22/23 at 2215, Routine [facility] famotidine (PEPCID (PF)) injection 20 mg 12-23 04:15: 00 12-23 04:15 :00 No 20mg 20 mg, Slow IV Push, ONCE, 1 dose, On Thu12/22/23 at 2215, [facility] HYDROcodone -acetaminop hen (NORCO) [...] 12-22 03:30: 00 12-22 03:30 :00 No [id number] 100mL 100 mL, Intravenou s, ONCE, 1 [...] 25 mg suppository 12-22 00:00: 00 Yes [id number] 25mg Insert 1 Suppositor y into rectum 2 (two) times daily as needed for Rectal itching/pa in. [facility] ondansetron 4 mg disintegrat ing tablet 12-22 00:00: 00 02-16 00:00 :00 No [id number] 4mg Take 1 tablet by mouth every 8 (eight) hours as needed for Nausea and Vomiting (N/V). [facility] amoxicillin -clavulanat e 875-125 mg per tablet 12-22 00:00: 00 01-02 05:59 :00 No [id number] 1{tbl} Take 1 tablet by mouth every [...] dose, On Thu10/27/23 at 0145, [facility] levoFLOXaci n (LEVAQUIN) tablet 500 mg 2022-11 07:45: 00 10-27 19:44 :00 No 500mg 500 mg, Oral, ONCE, 1 dose, On Thu10/27/23 at 0145, [facility]
Re ason for Anti-Infec tive: Empiric Non-Surgic al Prophylaxi s
Durat ion of therapy: Once (ED) [facility] DICLOFEN SOD 75MG EC 04-08 00:00: 00 Yes [facility] AZITHROMYCI N 250MG 04-08 00:00: 00 Yes [facility] PREDNISONE 10MG -08 00:00: 00 Yes [facility] TAKE ONE (1) TABLET(S) BY MOUTH ONCE A DAY. 03-13 00:00: 00 Yes [facility] AMLODIPINE 10MG - 00:00: 00 Yes [facility] CLONAZEPAM 1MG 28 00:00: 00 Yes [facility] PREDNISONE 20MG -23 00:00: 00 Yes [facility] OLOPATADINE 0.1% RX ERICA - 00:00: 00 Yes [facility] INSTILL ONE DROP TWICE A DAY - 00:00: 00 Yes [facility] ALBUTEROL(V ) HFA 200 INH 4-05 00:00: 00 Yes [facility] CHLORDIAZEP OXIDE 25MG CAPSULES 4-04 00:00: 00 Yes [facility] LORAZEPAM 2MG 3-10 00:00: 00 Yes 1999 [facility] PREDNISONE 20MG 3-07 00:00: 00 Yes [facility] AMOX/K CLAV 134-162 1576-0 3-03 00:00: 00 Yes [facility] iopamidol (ISOVUE 370-500 mL) injection 70 mL 2021-11 18:30: 00 10-14 18:30 :00 No [id number] 70mL 70 mL, Intravenou s, ONCE, 1 [...] 2021-11 00:00: 00 02-16 00:00 :00 No [id number] 750mg Take 1 tablet by mouth every [...] mL, Inhalation , ONCE, 1 dose, On Thu02/20/22 at 0530, Routine [facility] triamterene -hydrochlor othiazid 37.5-25 mg tablet 02-20 00:00: 00 Yes [id number] 1{tbl} Take 1 tablet by mouth daily. [facility] albuterol 90 mcg/actuati on inhaler 02-20 00:00: 00 07-20 00:00 :00 No [id number] 2{puff} Inhale 2 Puffs every 4 (four) hours as needed for Wheezing or Shortness of Breath. [facility] chlordiazeP OXIDE 25 mg capsule 02-20 00:00: 00 07-20 00:00 :00 No [id number] 25mg Take 1 capsule by mouth every 6 (six) hours as needed for Anxiety, Agitation, Heart Rate => 100 or Detox. [facility] predniSONE 10 mg tablet 02-20 00:00: 00 02-16 00:00 :00 No [id number] TAKE ONE TABLET BY MOUTH DAILY [facility] albuterol 2.5 mg /3 mL (0.083 %) nebulizer solution 02-20 00:00: 00 02-16 00:00 :00 No [id number] 2.5mg Inhale 3 mL every 4 (four) hours. May also nebulize one extra every 6 hours. [facility] budesonide- formoteroL 160-4.5 mcg/actuati on inhaler 02-20 00:00: 00 02-16 00:00 :00 No [id number] 2{puff} Inhale 2 Puffs 2 (two) times [...] SARS-COV-2 COVID-19 PFIZER VACCINE 2021-02-03 00:00:00 Completed [facility] SARS-COV-2 COVID-19 PFIZER VACCINE 2021-02-03 00:00:00 Completed [facility] SARS-COV-2 COVID-19 PFIZER VACCINE 2021-02-03 00:00:00 Completed [facility] SARS-COV-2 COVID-19 PFIZER VACCINE 2021-01-13 00:00:00 Completed [facility] SARS-COV-2 COVID-19 PFIZER VACCINE 2021-01-13 00:00:00 Completed [facility] SARS-COV-2 COVID-19 PFIZER VACCINE 2021-01-13 00:00:00 Completed [facility] Pneumococcal Polysaccharide, PPSV23 (PNEUMOVAX) 2018-03-26 00:00:00 Completed [facility] Influenza Virus Vaccine Quad IM 3+ YRS 2018-03-26 00:00:00 Completed [facility] Pneumococcal Polysaccharide, PPSV23 (PNEUMOVAX) 2018-03-26 00:00:00 Completed [facility] Influenza Virus Vaccine Quad IM 3+ YRS 2018-03-26 00:00:00 Completed [facility] Pneumococcal Polysaccharide, PPSV23 (PNEUMOVAX) 2018-03-26 00:00:00 Completed [facility] Influenza Virus Vaccine Quad IM 3+ YRS 2018-03-26 00:00:00 Completed [facility] Pneumococcal Polysaccharide, PPSV23 (PNEUMOVAX) [facility] Influenza Virus Vaccine Quad IM 3+ YRS Unknown Completed [facility] SARS-COV-2 COVID-19 PFIZER VACCINE Unknown Completed [facility] Pneumococcal Polysaccharide, PPSV23 (PNEUMOVAX) Unknown [facility] Influenza Virus Vaccine Quad IM 3+ YRS Unknown Completed [facility] SARS-COV-2 COVID-19 PFIZER VACCINE Unknown Completed [facility] Pneumococcal Polysaccharide, PPSV23 (PNEUMOVAX) Unknown Completed [facility] Influenza Virus Vaccine Quad IM 3+ YRS Unknown Completed [facility] SARS-COV-2 COVID-19 PFIZER VACCINE Unknown Completed [facility] Pneumococcal Polysaccharide, PPSV23 (PNEUMOVAX) Unknown Completed [facility] Influenza Virus Vaccine Quad IM 3+ YRS Unknown Completed [facility] SARS-COV-2 COVID-19 PFIZER VACCINE Unknown Completed [facility] Pneumococcal Polysaccharide, PPSV23 (PNEUMOVAX) Unknown [facility] Influenza Virus Vaccine Quad IM 3+ YRS Unknown Completed [facility] SARS-COV-2 COVID-19 PFIZER VACCINE Unknown Completed [facility] Pneumococcal Polysaccharide, PPSV23 (PNEUMOVAX) Unknown Completed [facility] Influenza Virus Vaccine Quad IM 3+ YRS Unknown Completed [facility] SARS-COV-2 COVID-19 PFIZER VACCINE Unknown Completed [facility] Pneumococcal Polysaccharide, PPSV23 (PNEUMOVAX) Unknown [facility] Influenza Virus Vaccine Quad IM 3+ YRS Unknown Completed [facility] SARS-COV-2 COVID-19 PFIZER VACCINE Unknown Completed [facility] Pneumococcal Polysaccharide, PPSV23 (PNEUMOVAX) Unknown Completed [facility] Influenza Virus Vaccine Quad IM 3+ YRS Unknown Completed [facility] SARS-COV-2 COVID-19 PFIZER VACCINE Unknown Completed [facility] Pneumococcal Polysaccharide, PPSV23 (PNEUMOVAX) Unknown Completed [facility] Influenza Virus Vaccine Quad IM 3+ YRS Unknown Completed [facility] SARS-COV-2 COVID-19 PFIZER VACCINE Unknown Completed [facility] Pneumococcal Polysaccharide, PPSV23 (PNEUMOVAX) Unknown Completed [facility] Influenza Virus Vaccine Quad IM 3+ YRS Unknown Completed [facility] SARS-COV-2 COVID-19 PFIZER VACCINE Unknown Completed [facility] Pneumococcal Polysaccharide, PPSV23 (PNEUMOVAX) Unknown Completed [facility] Influenza Virus Vaccine Quad IM 3+ YRS Unknown Completed [facility] SARS-COV-2 COVID-19 PFIZER VACCINE Unknown Completed [facility] Pneumococcal Polysaccharide, PPSV23 (PNEUMOVAX) Unknown Completed [facility] Influenza Virus Vaccine Quad IM 3+ YRS Unknown Completed [facility] SARS-COV-2 COVID-19 PFIZER VACCINE Unknown Completed [facility] Vital Signs Vital Name Observation Time Observation Value Comments S ource Systolic blood pressure 2024-07-23 18:00:00 175 mm[Hg] [facility] Diastolic blood pressure 2024-07-23 18:00:00 109 mm[Hg] [facility] Heart rate 2024-07-23 18:00:00 87 /min [facility] Respiratory rate 2024-07-23 18:00:00 16 /min [facility] Oxygen saturation in Arterial blood by Pulse oximetry 2024-07-23 18:00:00 100 /min [facility] Body temperature 2024-07-23 16:15:00 36.61 Debbie [facility] Body height 2024-07-23 16:15:00 162.6 cm [facility] Body weight 2024-07-23 16:15:00 123.832 kg [facility] BMI 2024-07-23 16:15:00 46.86 kg/m2 [facility] Heart rate 2024-07-20 19:15:00 116 /min [facility] Respiratory rate 2024-07-20 19:15:00 10 /min [facility] Oxygen saturation in Arterial blood by Pulse oximetry 2024-07-20 19:15:00 100 /min [facility] Systolic blood pressure 2024-07-20 17:00:00 149 mm[Hg] [facility] Diastolic blood pressure 2024-07-20 17:00:00 131 mm[Hg] [facility] Body temperature 2024-07-20 16:00:00 37.06 Debbie [facility] Body weight 2024-07-20 08:00:00 82.5 kg [facility] BMI 2024-07-20 08:00:00 31.22 kg/m2 [facility] Body height 2024-07-18 14:23:00 162.6 cm [facility] Systolic blood pressure 2024-07-18 01:00:00 176 mm[Hg] [facility] Diastolic blood pressure 2024-07-18 01:00:00 88 mm[Hg] [facility] Heart rate 2024-07-18 01:00:00 113 /min [facility] Respiratory rate 2024-07-18 01:00:00 18 /min [facility] Oxygen saturation in Arterial blood by Pulse oximetry 2024-07-18 01:00:00 95 /min [facility] Body temperature 2024-07-18 00:52:00 37.33 [facility] Body height 2024-07-18 00:52:00 162.6 cm [facility] Body weight 2024-07-18 00:52:00 122.925 kg [facility] BMI 2024-07-18 00:52:00 46.52 kg/m2 [facility] Systolic blood pressure 2024-05-24 13:51:42 157 mm[Hg] [facility] Diastolic blood pressure 2024-05-24 13:51:42 93 mm[Hg] [facility] Heart rate 2024-05-24 13:51:42 98 /min [facility] Respiratory rate 2024-05-24 13:51:42 18 /min [facility] Oxygen saturation in Arterial blood by Pulse oximetry 2024-05-24 13:51:42 97 /min [facility] Body temperature 2024-05-24 13:36:00 36.78 [facility] Body height 2024-05-24 13:36:00 162.6 cm [facility] Body weight 2024-05-24 13:36:00 78.472 kg [facility] BMI 2024-05-24 13:36:00 29.70 kg/m2 [facility] Systolic blood pressure 2024-02-18 01:57:00 134 mm[Hg] [facility] Diastolic blood pressure 2024-02-18 01:57:00 94 mm[Hg] [facility] Body height 2024-02-18 01:57:00 162.6 cm [facility] Body weight 2024-02-18 01:57:00 79.379 kg [facility] BMI 2024-02-18 01:57:00 30.04 kg/m2 [facility] Heart rate 2024-02-18 01:53:00 110 /min [facility] Body temperature 2024-02-18 01:53:00 36.61 [facility] Respiratory rate 2024-02-18 01:53:00 24 /min [facility] Oxygen saturation in Arterial blood by Pulse oximetry 2024-02-18 01:53:00 93 /min [facility] Systolic blood pressure 2024-02-09 01:54:05 150 mm[Hg] [facility] Diastolic blood pressure 2024-02-09 01:54:05 91 mm[Hg] [facility] Heart rate 2024-02-09 01:54:05 87 /min [facility] Respiratory rate 2024-02-09 01:54:05 17 /min [facility] Oxygen saturation in Arterial blood by Pulse oximetry 2024-02-09 01:54:05 93 /min [facility] Body temperature 2024-02-09 01:45:00 36.67 [facility] Body height 2024-02-09 01:45:00 162.6 cm [facility] Body weight 2024-02-09 01:45:00 81.194 kg [facility] BMI 2024-02-09 01:45:00 30.73 kg/m2 [facility] Respiratory rate 2024-02-08 21:00:00 18 /min [facility] Oxygen saturation in Arterial blood by Pulse oximetry 2024-02-08 21:00:00 96 /min [facility] Systolic blood pressure 2024-02-08 20:27:00 164 mm[Hg] [facility] Diastolic blood pressure 2024-02-08 20:27:00 90 mm[Hg] [facility] Heart rate 2024-02-08 20:27:00 83 /min [facility] Body temperature 2024-02-08 19:12:00 36.83 [facility] Body height 2024-02-08 19:12:00 162.6 cm [facility] Body weight 2024-02-08 19:12:00 81.194 kg [facility] BMI 2024-02-08 19:12:00 30.73 kg/m2 [facility] Heart rate 2024-01-14 12:15:00 98 /min [facility] Body temperature 2024-01-14 12:15:00 36.56 [facility] Respiratory rate 2024-01-14 12:15:00 14 /min [facility] Oxygen saturation in Arterial blood by Pulse oximetry 2024-01-14 12:15:00 95 /min [facility] Systolic blood pressure 2024-01-14 12:00:00 140 mm[Hg] [facility] Diastolic blood pressure 2024-01-14 12:00:00 90 mm[Hg] [facility] Body height 2024-01-14 10:51:00 162.6 cm [facility] Body weight 2024-01-14 10:51:00 81.194 kg [facility] BMI 2024-01-14 10:51:00 30.73 kg/m2 [facility] Systolic blood pressure 2023-12-23 05:02:00 133 mm[Hg] [facility] Diastolic blood pressure 2023-12-23 05:02:00 84 mm[Hg] [facility] Heart rate 2023-12-23 05:02:00 78 /min [facility] Body temperature 2023-12-23 05:02:00 36.17 [facility] Respiratory rate 2023-12-23 05:02:00 17 /min [facility] Oxygen saturation in Arterial blood by Pulse oximetry 2023-12-23 05:02:00 91 /min [facility] Body height 2023-12-23 03:45:00 162.6 cm [facility] Body weight 2023-12-23 03:45:00 81.194 kg [facility] BMI 2023-12-23 03:45:00 30.73 kg/m2 [facility] Systolic blood pressure 2023-12-22 02:08:00 143 mm[Hg] [facility] Diastolic blood pressure 2023-12-22 02:08:00 92 mm[Hg] [facility] Heart rate 2023-12-22 02:08:00 81 /min [facility] Res[facility] 2023-12-22 02:08:00 13 /min [facility] Oxygen saturation in Arterial blood by Pulse oximetry 2023-12-22 02:08:00 95 /min [facility] Body temperature 2023-12-22 01:33:00 36.72 [facility] Body height 2023-12-22 01:33:00 162.6 cm [facility] Body weight 2023-12-22 01:33:00 81.239 kg [facility] BMI 2023-12-22 01:33:00 30.74 kg/m2 [facility] Systolic blood pressure 2023-11-11 02:00:00 127 mm[Hg] [facility] Diastolic blood pressure 2023-11-11 02:00:00 87 mm[Hg] [facility] Heart rate 2023-11-11 02:00:00 79 /min [facility] Respiratory rate 2023-11-11 02:00:00 20 /min [facility] Oxygen saturation in Arterial blood by Pulse oximetry 2023-11-11 02:00:00 98 /min [facility] Body temperature 2023-11-11 01:31:00 36.28 [facility] Body height 2023-11-11 01:31:00 162.6 cm [facility] Body weight 2023-11-11 01:31:00 79.379 kg [facility] BMI 2023-11-11 01:31:00 30.04 kg/m2 [facility] Systolic blood pressure 2023-10-27 06:54:00 133 mm[Hg] [facility] Diastolic blood pressure 2023-10-27 06:54:00 94 mm[Hg] [facility] Heart rate 2023-10-27 06:54:00 95 /min [facility] Body temperature 2023-10-27 06:54:00 36.44 [facility] Respiratory rate 2023-10-27 06:54:00 22 /min [facility] Body height 2023-10-27 06:54:00 162.6 cm [facility] Body weight 2023-10-27 06:54:00 78.472 kg [facility] BMI 2023-10-27 06:54:00 29.70 kg/m2 [facility] Oxygen saturation in Arterial blood by Pulse oximetry 2023-10-27 06:54:00 94 /min [facility] Systolic blood pressure 2022-10-14 19:43:00 111 mm[Hg] [facility] Diastolic blood pressure 2022-10-14 19:43:00 74 mm[Hg] [facility] Heart rate 2022-10-14 19:43:00 98 /min [facility] Body temperature 2022-10-14 19:43:00 36.39 [facility] Respiratory rate 2022-10-14 19:43:00 22 /min [facility] Oxygen saturation in Arterial blood by Pulse oximetry 2022-10-14 19:43:00 94 /min [facility] Body height 2022-10-14 16:13:00 162.6 cm [facility] Body weight 2022-10-14 16:13:00 81.647 kg [facility] BMI 2022-10-14 16:13:00 30.90 kg/m2 [facility] Systolic blood pressure 2022-03-12 10:13:00 119 mm[Hg] [facility] Diastolic blood pressure 2022-03-12 10:13:00 75 mm[Hg] [facility] Heart rate 2022-03-12 10:13:00 105 /min [facility] Body temperature 2022-03-12 10:13:00 37.28 [facility] Respiratory rate 2022-03-12 10:13:00 19 /min [facility] Body height 2022-03-12 10:13:00 162.6 cm [facility] Body weight 2022-03-12 10:13:00 99.791 kg [facility] BMI 2022-03-12 10:13:00 37.76 kg/m2 [facility] Oxygen saturation in Arterial blood by Pulse oximetry 2022-03-12 10:13:00 96 /min [facility] Systolic blood pressure 2022-02-20 11:57:00 155 mm[Hg] [facility] Diastolic blood pressure 2022-02-20 11:57:00 88 mm[Hg] [facility] Heart rate 2022-02-20 11:57:00 105 /min [facility] Respiratory rate 2022-02-20 11:57:00 18 /min [facility] Oxygen saturation in Arterial blood by Pulse oximetry 2022-02-20 11:57:00 100 /min [facility] Body temperature 2022-02-20 09:25:00 37 [facility] Body height 2022-02-20 09:25:00 162.6 cm [facility] Body weight 2022-02-20 09:25:00 96.163 kg [facility] BMI 2022-02-20 09:25:00 36.39 kg/m2 [facility] Respiratory Rate 2024-05-26 13:39:00 16.00 /min Tunde Haro BP Systolic 2024-05-26 13:39:00 152 mm[Hg] Jose Haro BP Diastolic 2024-05-26 13:39:00 101 mm[Hg] Vince Haro Weight Measured 2024-05-26 13:39:00 179.00 pounds Tunde Haro Height Measured 2024-05-26 13:39:00 64.00 inches Tunde Haro Body Temperature 2024-05-26 13:39:00 97.80 degrees Tuned Haro Heart Rate 2024-05-26 13:39:00 110.00 /min Jose Haro Procedures Procedure Date / Time Performed Performing Clinician Source EKG-12 LEAD 2024-07-23 19:32:17 Yary Camp [facility] LACTIC ACID WHOLE BLOOD 2024-07-23 18:23:00 Mike Camp [facility] LIPASE 2024-07-23 17:05:00 Yary Camp [facility] TROPONIN I 2024-07-23 17:05:00 Conrado Yary G [facility] COMP. METABOLIC PANEL ([id number]) 2024-07-23 17:05:00 Yary Camp [facility] ETHANOL 2024-07-23 17:05:00 Yary Camp [facility] CBC WITH DIFF 2024-07-23 17:05:00 Yary Camp [facility] N-TERMINAL PRO-BNP 2024-07-23 17:05:00 Yary Camp [facility] HB ECG ROUTINE & RHYTHM STRIP 2024-07-20 14:13:43 Julien Marks [facility] MAGNESIUM 2024-07-20 08:21:00 Julien [facility] BASIC METABOLIC PANEL (NA, K, CL, CO2, GLUCOSE, BUN, CREATININE, CA) 2024-07-20 08:21:00 Julien Marks [facility] CBC WITH DIFF 2024-07-20 08:21:00 Julien Marks [facility] MAGNESIUM 2024-07-19 09:24:00 Julien Marks [facility] BASIC METABOLIC PANEL (NA, K, CL, CO2, GLUCOSE, BUN, CREATININE, CA) 2024-07-19 09:24:00 Julien Marks [facility] CBC WITH DIFF 2024-07-19 09:24:00 Julien Marks [facility] LEGIONELLA AND STREPTOCOCCUS PNEUMONIAE URINARY ANTIGENS 2024-07-19 02:12:00 Julien Marks [facility] PROCALCITONIN 2024-07-18 21:39:00 Julien Marks [facility] LACTIC ACID WHOLE BLOOD 2024-07-18 15:51:00 Alfred Marks [facility] URINE DRUG (IMMUNOASSAY) - COMPREHENSIVE DRUG SCREEN W/O REFLEX 2024-07-18 15:31:00 Blu Mcguire [facility] MRSA / MSSA SCREEN BY PCR, NARES 2024-07-18 14:47:00 Julien Marks [facility] CT THORAX WO CONTRAST 2024-07-18 14:42:00 Rajinder Marks [facility] BLOOD CULTURE SCREEN 2024-07-18 13:01:00 Shay Stinson [facility] LACTIC ACID WHOLE BLOOD 2024-07-18 13:01:00 Facundo Stinson [facility] INFLUENZA A/B RSV COVID NAAT 2024-07-18 12:49:00 Shay Stinson [facility] LAB ONLY COVID INTERPRETATION 2024-07-18 12:49:00 Shay Stinson [facility] COMP. METABOLIC PANEL ([id number]) 2024-07-18 12:21:00 Blu Mcguire [facility] CRITICAL CARE 2024-07-18 12:12:28 Shay Stinson [facility] XR CHEST 1 VW 2024-07-18 11:40:27 Blu Mcguire [facility] TROPONIN I 2024-07-18 11:18:00 Blu Mcguire [facility] ETHANOL 2024-07-18 11:18:00 [facility]ire [facility] CBC WITH DIFF 2024-07-18 11:18:00 Blu Mcguire [facility] N-TERMINAL PRO-BNP 2024-07-18 11:18:00 Blu Mcguire [facility] HB ECG ROUTINE & RHYTHM STRIP 2024-07-18 11:10:41 Blu Mcguire [facility] XR CHEST 1 VW 2024-07-18 01:34:48 Blu Mcguire [facility] TROPONIN I 2024-07-18 00:56:00 Blu Mcguire [facility] COMP. METABOLIC PANEL ([id number]) 2024-07-18 00:56:00 Blu Mcguire [facility] ETHANOL 2024-07-18 00:56:00 Blu Mcguire [facility] CBC WITH DIFF 2024-07-18 00:56:00 Blu Mcguire [facility] N-TERMINAL PRO-BNP 2024-07-18 00:56:00 [facility] + LACTIC ACID 2024-02-08 20:47:00 Christina Villarreal [facility] XR CHEST 1 VW 2024-02-08 19:47:00 Christina Villarreal [facility] URINALYSIS 2024-02-08 19:36:00 Christina Villarreal [facility] MAGNESIUM 2024-02-08 19:25:00 Christina Villarreal [facility] TROPONIN I 2024-02-08 19:25:00 Christina Villarreal [facility] COMP. METABOLIC PANEL ([id number]) 2024-02-08 19:25:00 Christina Villarreal [facility] ETHANOL 2024-02-08 19:25:00 Christina Villarreal [facility] CBC WITH DIFF 2024-02-08 19:25:00 Christina Villarreal [facility] N-TERMINAL PRO-BNP 2024-02-08 19:25:00 Christina Villarreal [facility] EKG-12 LEAD 2024-01-14 12:00:51 Jac Navarro [facility] LIPASE 2024-01-14 11:11:00 Jac Navarro [facility] TROPONIN I 2024-01-14 11:11:00 Jac Navarro [facility] COMP. METABOLIC PANEL ([id number]) 2024-01-14 11:11:00 Jac Navarro [facility] ETHANOL 2024-01-14 11:11:00 Jac Navarro [facility] CBC WITH DIFF 2024-01-14 11:11:00 Jac Navarro [facility] N-TERMINAL PRO-BNP 2024-01-14 11:11:00 Jac Navarro [facility] COVID-19 (ID NOW RAPID TESTING) 2024-01-14 11:11:00 Jac Navarro [facility] CONSENT/REFUSAL FOR DIAGNOSIS AND TREATMENT 2024-01-14 10:44:32 Doctor Unassigned, [place] [facility] LIPASE 2023-12-23 04:17:00 Cailin Rowe Un [facility] COMP. METABOLIC PANEL ([id number]) 2023-12-23 04:17:00 Cailin Rowe [facility] CBC WITH DIFF 2023-12-23 04:17:00 [facility] 2023-12-23 04:17:00 Cailin Rowe Un [facility] CONSENT/REFUSAL FOR DIAGNOSIS AND TREATMENT 2023-12-23 03:40:32 Doctor Unassigned, [place] [facility] CT ABDOMEN PELVIS W CONTRAST 2023-12-22 02:31:05 Quentin Hastings [facility] LIPASE 2023-12-22 01:58:00 Quentin Hastings [facility] COMP. METABOLIC PANEL ([id number]) 2023-12-22 01:58:00 Quentin Hastings [facility] ETHANOL 2023-12-22 01:58:00 Quentin Hastings [facility] CBC WITH DIFF 2023-12-22 01:58:00 Quentin Hastings [facility] PROTHROMBIN TIME / INR 2023-12-22 01:58:00 Wali Hastings [facility] URINALYSIS 2023-12-22 01:58:00 Quentin Hastings [facility] CONSENT/REFUSAL FOR DIAGNOSIS AND TREATMENT 2023-12-22 01:19:14 Doctor Unassigned, [place] [facility] NOTICE OF PRIVACY PRACTICES 2023-11-11 01:24:24 Doctor Unassigned, [place] [facility] CONSENT/REFUSAL FOR DIAGNOSIS AND TREATMENT 2023-11-11 01:23:54 Doctor Unassigned, [place] [facility] COVID-19 (ID NOW RAPID TESTING) 2023-10-27 07:09:00 Jac Navarro [facility] NOTICE OF PRIVACY PRACTICES 2023-10-27 06:49:48 Doctor Unassigned, [place] [facility] CONSENT/REFUSAL FOR DIAGNOSIS AND TREATMENT 2023-10-27 06:47:40 Doctor Unassigned, [place] [facility] CT ABDOMEN PELVIS W CONTRAST 2022-10-14 [facility] 2022-10-14 17:10:37 Singer [facility] TROPONIN I 2022-10-14 16:37:00 Quentin Hastings [facility] COMP. METABOLIC PANEL ([id number]) 2022-10-14 16:37[facility] 2022-10-14 [facility] 2022-10-14 16:37[facility] 2022-10-14 16:37:00 Quentin Hastings [facility] N-TERMINAL PRO-BNP 2022-10-14 16:37:00 Quentin Hastings [facility] CONSENT/REFUSAL FOR DIAGNOSIS AND TREATMENT 2022-10-14 15:56:36 Doctor Unassigned, [place] [facility] CONSENT/REFUSAL FOR DIAGNOSIS AND TREATMENT 2022-03-12 10:03:12 Doctor Unassigned, [place] [facility] XR CHEST 1 VW 2022-02-20 09:59:00 Christy Holliday [facility] LIPASE 2022-02-20 09:30:00 Christy Holliday [facility] TROPONIN I 2022-02-20 09:30:00 Christy Holliday [facility] COMP. METABOLIC PANEL ([id number]) 2022-02-20 09:30:00 Christy Holliday [facility] CBC WITH DIFF 2022-02-20 09:30:00 Christy Holliday [facility] N-TERMINAL PRO-BNP 2022-02-20 09:30:00 Christy Holliday [facility] NOTICE OF PRIVACY PRACTICES 2022-02-20 09:15:02 Doctor Unassigned, [place] [facility] CONSENT/REFUSAL FOR DIAGNOSIS AND TREATMENT 2022-02-20 09:14:47 Doctor Unassigned, [place] [facility] Encounters Start Date/Time End Date/Time Encounter Type Admission Type Attending [facility] Facility Care Department Encounter ID Source 2024-07-23 11:09:00 2024-07-23 13:55:00 Emergency X YARY CAMP PAMALA [facility] [id number] [facility] 2024-07-23 11:09:00 2024-07-23 13:55:00 Emergency Yary Camp [facility] 1.2.840.114 350.1.13.10 4.2.7.2.686 [id number] [facility] 2024-07-18 06:09:00 2024-07-20 15:00:00 Inpatient X JULIEN MAKRS [facility] JOÃO [id number] [facility] 2024-07-18 06:09:00 2024-07-20 15:00:00 Hospital Encounter Blu Mcguire [facility], David [facility] 1.2.840.114 350.1.13.10 4.2.7.2.686 [id number] [facility] 2024-07-17 19:49:00 2024-07-17 21:02:00 Emergency X MCGUIRE BLU FAROOQ [facility] ERT [id number] [facility] 2024-07-17 19:49:00 2024-07-17 21:02:00 Emergency Blu Mcguire [facility] 1..840.114 350.1.13.10 4.2.7.2.686 [id number] [facility] 2024-06-06 10:15:00 2024-06-06 10:15:00 Outpatient WENDY BROWNLEE [id number] Maria Elena Alcantara 2024-05-26 13:21:21 2024-05-26 13:21:21 Outpatient SFA [facility] [id number] Tunde Haro 2024-05-26 00:00:00 2024-05-26 00:00:00 Outpatient Visit [facility] [id number] Tunde Haro 2024-05-24 08:36:00 2024-05-24 09:39:00 Emergency X MYRNA SANDHU [facility] ERT [id number] [facility] 2024-05-24 08:36:00 2024-05-24 09:39:00 Emergency Myrna Sandhu [facility] ..840.114 350.1.13.10 4.2.7.2.686 [id number] [facility] 2024-04-14 16:30:00 2024-04-14 16:30:00 Outpatient DARIEN LOBO [id number] Maria Elena Alcantara 2024-04-12 11:00:00 2024-04-12 11:00:00 Outpatient MINNA ORTA [facility] [id number] Maria Elena [facility] 2024-04-12 11:00:00 2024-04-12 11:00:00 Outpatient KEMWENDY [facility] [id number] [facility] 2024-04-12 00:00:00 2024-04-12 00:00:00 Outpatient SHARATH HALEY [facility] [id number] Maria Elena [facility] 2024-04-05 11:30:00 2024-04-05 11:30:00 Outpatient ROYADARIEN Olson [facility] [id number] Maria Elena [facility] 2024-04-05 00:00:00 2024-04-05 00:00:00 Outpatient DARIEN LOBO [facility] [id number] [facility] 2024-03-28 00:00:00 2024-03-28 00:00:00 Outpatient ALFREDONIURKADARIEN Olson [facility] [id number] [facility] 2024-03-15 08:30:00 2024-03-15 08:30:00 Outpatient KEMWENDY POPE [facility] [id number] [facility] 2024-02-17 20:58:00 2024-02-17 21:44:00 Emergency X CONRADO YARY [facility] ERT [id number] [facility] 2024-02-17 20:58:00 2024-02-17 21:44:00 Emergency BaljitYary groves [facility] 1.2.840.114 350.1.13.10 4.2.7.2.686 [id number] [facility] 2024-02-09 13:10:00 2024-02-09 15:14:00 Emergency E TUNDE QUINTANILLA [facility] [id number] [facility] 2024-02-08 20:38:00 2024-02-08 21:40:00 Emergency X KEISHA DAVENPORT [facility] ERT [id number] [facility] 2024-02-08 20:38:00 2024-02-08 21:40:00 Emergency Keisha Davenport [facility] 1.2.840.114 350.1.13.10 4.2.7.2.686 [id number] [facility] 2024-02-08 14:08:00 2024-02-08 17:06:00 Emergency Christina Villarreal [facility] 1.2.840.114 350.1.13.10 4.2.7.2.686 [id number] [facility] 2024-01-14 04:46:00 2024-01-14 06:23:00 Emergency X MELANIE JAC [facility] ERT [id number] [facility] 2024-01-14 04:46:00 2024-01-14 06:23:00 Emergency Melanie Jac J [facility] 1.2.840.114 350.1.13.10 4.2.7.2.686 [id number] [facility] 2023-12-22 21:51:00 2023-12-22 23:13:00 Emergency X TREV ROWERADHA [facility] ERT [id number] [facility] 2023-12-22 21:51:00 2023-12-22 23:13:00 Emergency SullyherberthCailin avendano [facility] 1.2.840.114 350.1.13.10 4.2.7.2.686 [id number] [facility] 2023-12-21 19:36:00 2023-12-21 21:52:00 Emergency X QUENTIN HASTINGS [facility] ERT [id number] [facility] 2023-12-21 19:36:00 2023-12-21 21:52:00 Emergency Quentin Hastings [facility] 1.2.840.114 350.1.13.10 4.2.7.2.686 [id number] [facility] 2023-11-10 19:29:00 2023-11-10 20:14:00 Emergency X CHRISTY HOLLIDAY [facility] ERT [id number] [facility] 2023-11-10 19:29:00 2023-11-10 20:14:00 Emergency Christy Holliday [facility] 1.2.840.114 350.1.13.10 4.2.7.2.686 [id number] [facility] 2023-10-27 00:49:00 2023-10-27 01:41:00 Emergency X MELANIEJAC [facility] ERT [id number] [facility] 2023-10-27 00:49:00 2023-10-27 01:41:00 Emergency Jac Navarro [facility] 1..840.114 350.1.13.10 4.2.7.2.686 [id number] [facility] 2023-07-15 00:00:00 2023-07-15 00:00:00 Outpatient DARIEN LOBO [id number] Maria Elena [facility] 2023-06-16 11:30:00 2023-06-16 11:30:00 Outpatient DARIEN LOBO [id number] Maria Elena [facility] 2023-05-18 00:00:00 2023-05-18 00:00:00 Outpatient MARIA ELENA CHAN [id number] [facility]22-[facility]-14 10:07:00 2022-10-14 14:39:00 Emergency X QUENTIN HASTINGS [facility] ERT [id number] [facility] 2022-10-14 10:07:00 2022-10-14 14:39:00 Emergency Quentin Hastings [facility] 1..840.114 350.1.13.10 4.2.7.2.686 [id number] [facility] 2022-03-12 05:15:00 2022-03-12 06:41:00 Emergency X CHRISTY HOLLIDAY [facility] ERT [id number] [facility] 2022-03-12 05:15:00 2022-03-12 06:41:00 Emergency Christy Holliday [facility] [id number] [facility] 2022-02-20 04:17:00 2022-02-20 07:16:00 Emergency X [facility]RISTY [facility]ID[facility] ERT [id number] [facility] 2022-02-20 04:17:00 2022-02-20 07:16:00 Emergency [place] [facility] 1.2.840.114 350.1.13.10 4.2.7.2.686 [id number] [facility] 2021-02-03 11:10:00 2021-02-03 11:10:00 Outpatient R DENISE SUNG [facility] [id number] [facility] 2021-01-13 11:20:00 2021-01-13 11:20:00 [facility]patient [facility] [id number] [facility] 2020-11-10 08:20:00 2020-11-10 08:20:00 Outpatient R K[facility]LEY [facility] [id number] [facility] Results Test Description Test Time Test Comments Results Result Co mments Source [facility] WITH [id number] 18:19:05* Test Item Value Reference Range Interpretation Comme nts WBC (test code = 6690-2) 13.78 4.20-10.70 H RBC (test code = 789-8) 3.85 4.26-5.52 L HGB (test code = 718-7) 12.3 g/dL 12.2-16.4 HCT (test code = 4544-3) 37.1 % 38.4-49.3 L MCV (test code = 787-2) 96.4 fL 81.7-95.6 H MCH (test code = 785-6) 31.9 pg 26.1-32.7 MCHC (test code = 786-4) 33.2 g/dL 31.2-35.0 RDW-SD (test code = 27290-9) 53.9 fL 38.5-51.6 H RDW-CV (test code = 788-0) 15.2 % 12.1-15.4 PLT (test code = 777-3) 271 150-328 No platelet clum p seen on the smear MPV (test code = 17522-1) 10.1 fL 9.8-13.0 IPF % (test code = 7480920434) 4.2 % 1.2-10.7 Platelet count measured by fluorescence method. NRBC/100 WBC (test code = 8250883189) 0.0 0.0-10.0 NRBC x10^3 (test code = 0302281544) See_Comment [Automated messa ge] The system which generated this result transmitted reference range: 10*3/?L. The reference range was not used to interpret this result as normal/abnormal. GRAN MAT (NEUT) % (test code = 770-8) 74.5 % IMM GRAN % (test code = 9521075111) 1.70 % LYMPH % (test code = 736-9) 12.8 % MONO % (test code = 5905-5) 10.4 % EOS % (test code = 713-8) 0.3 % BASO % (test code = 706-2) 0.3 % GRAN MAT x10^3(ANC) (test code = 0016029376) 10.27 10*3/uL 1.99-6.95 H IMM GRAN x10^3 (test code = 8435776413) 0.23 10*3/uL 0.00-0.06 H LYMPH x10^3 (test code = 731-0) 1.77 10*3/uL 1.09-3.23 MONO x10^3 (test code = 742-7) 1.43 10*3/uL 0.36-1.02 H EOS x10^3 (test code = 711-2) 0.04 10*3/uL 0.06-0.53 L BASO x10^3 (test code = 704-7) 0.04 10*3/uL 0.01-0.09 ELLIPTO/OVAL (test code = 60324-3) 2+ See_Comment A [Automated [employer]ell[employer] ge] The system which generated this result transmitted reference range: (none). The reference range was not used to interpret this result as normal/abnormal. POLYCHROMASIA (test code = 49747-7) 2+ See_Comment [Automated [employer] ge] The system which generated this result transmitted reference range: 2+. The reference range was not used to interpret this result as normal/abnormal. SPHEROCYTES (test code = 802-9) 1+ A TOXIC CHANGES (test code = 803-7) Present A PLT ESTIMATE (test code = 9317-9) Normal Normal Lab Interpretation (test code = 64098-7) [facility]normal [facility] [id number] 17:49:42* Test Item Value Reference Range Interpretation Comme nts TROPONIN I (test code = 5808319282) 0.004 ng/mL <=0.034 LOUISE (test code = LOIUSE) Reference (Normal) Range (defined by the 99th [...] of biotin. Lab Interpretation (test code = 94064-3) Normal [facility]MINAL [id number] 17:47:05* Test Item Value Reference Range Interpretation Comme nts NT-proBNP (test code = 03009-8) 125 pg/mL <=125 Lab Interpretation (test cod e = 52502-3) Normal [facility]ETHANOL2024-[facility]-14 17:39:20 ALCOHOL<10mg/dL07/23/2024 12:39 [facility]10 Elleeuyp41-134 Toxic>100 Depression of RESOLUTION EXPERT>400 [facility] METABOLIC PANEL (56898)2024-07-23 17:38:03* Test Item Value Reference Range Interpretation Comme nts NA (test code = 5285453559) 134 mmol/L 135-145 L K (test code = 7889734485) 3.8 mmol/L 3.5-5.0 CL (test code = 2050071351) 98 mmol/L 98-108 CO2 TOTAL (test code = 7301464569) 22 mmol/L 23-31 L AGAP (test code = 8946446127) 14 2-16 BUN (test code = 0971142208) 14 mg/dL 7-23 GLUCOSE (test code = 5101879616) 110 mg/dL 70-110 CREATININE (test code = 2160-0) 0.54 mg/dL 0.60-1.25 L TOTAL BILI (test code = 2201533504) 1.1 mg/dL 0.1-1.1 CALCIUM (test code = 0039660079) 9.4 mg/dL 8.6-10.6 T PROTEIN (test code = 9815753725) 7.8 g/dL 6.3-8.2 ALBUMIN (test code = 6932942376) 4.9 g/dL 3.5-5.0 ALK PHOS (test code = 4812897776) 75 U/L 34-122 ALTv (test code = 1742-6) 21 U/L 5-50 AST(SGOT) (test code = 4266835496) 30 U/L 13-40 eGFR (test code = 67390-0) 117.0 mL/min/1.73m2 CKD-EPI eGFR (2020). Assuming creatinine has been stable day-to-day for at least three months, the eGFR indicates Category G1 (>= 90 mL/min/1.73 m2) Lab Interpretation (test code = 25333-5) Abnormal [facility] 17:38:03* Test Item Value Reference Range Interpretation Comme nts LIPASE (test code = 6372581492) 48 U/L 0-220 Lab Interpretation (test cod e = 67786-5) Normal [facility] HospitalCT THORAX WO [id number] 13:12:40 PROCEDURE: CT CHEST WITHOUT CONTRAST - CHEST PROTOCOL CLINICAL INDICATION: History of COPD presentswith shortness of breath Comparison: ?Same day chest radiograph and chest CT dated 03/25/2018.Abdominal CT 02/08/2024 TECHNIQUE: Volumetric images of the chest were acquired (from lung apicesto bases).MIP axial images, coronal and sagittal reformats were alsosubmitted for interpretation. FINDINGS: LUNGS AND PLEURA: The lungs are well-expanded. Chronic subtotal rightmiddle lobe atelectasis has been seen since 02/08/2024. Diffuse bronchialwall thickening. Scattered groundglass patchy opacities are seen in thereminder of the lungs, right greater than left. Moderate diffusecentrilobular emphysema is seen. No suspicious nodules. No pleuralabnormality detected. LYMPH NODES: No evidence of intrathoracic lymphadenopathy. MEDIASTINUM AND LOWER NECK: No central airway lesions are detected. Theesophagus is within normal limits. The included thyroid gland appearsnormal. HEART AND GREAT VESSELS: The heart is normal in size. No pericardialabnormalities are identified. The RV to LV is normal. The thoracic aorta is normal in caliber, with mild atherosclerotic plaque. Mild atherosclerotic calcifications of the coronary vessels. The pulmonary trunk is normal in caliber. VISUALIZED UPPER ABDOMEN: A 5 mm calyceal calculus is seen in the leftupper renal pole. OSSEOUS STRUCTURES AND SOFT TISSUES: No focalosseous lesions are detected.The soft tissues appear normal. [facility]cal[facility]onin[facility] 07:32:10* Test Item Value Reference Range Interpretation Comme [facility] Procalcitonin (test code = 3672012652) 0.02 ng/mL <=0.07 LOUISE (test code = LOUISE) INTERPRETATION OF PROCALCITONIN RESULTS IN ADULTS >= 18 YEARS OF AGE Initiation and discontinuation of antibiotics on patients with suspected or confirmed Lower Respiratory Tract Infection in Adults >= 18 years of age. + +-------- --------+ + -----+|Procalcitonin |Interpretation ?|Antibiotic ? ? |Considerations ? |ng/mL ? | ?|recommendation | ? + +-------- --------+ + -----+| <0.1 ? | Bacterial ? ? ?| Strongly ? ? ?| ? | ?| infection very | discouraged ? | Overruling: ? | ?| unlikely ? ? ? | ? | ? Clinically unstable ? ? ? + +-------- --------+ + ? High risk for adverse ? ? | <0.25 ?| Bacterial ? ? ?| Discouraged ? | ? outcome ? | ?| infection ? ? ?| ? | ? SEE IMPORTANT NOTE ?| ?| unlikely ? ? ? | ? | ? + +-------- --------+ + -----+| >=0.25 ? ? ? | Bacterial ? ? ?| Encouraged ? ?| ? | ?| infection ? ? ?| ? | ? | ?| likely ? | ? | Consider treatment failure ?+ +------- ---------+ -+ if levels does not decrease | >0.5 ? | Bacterial ? ? ?| Strongly ? ? ?| appropriately ? | ?| infection very | encouraged ? ?| ? | ?| likely ? | ? | ? + +-------- --------+ + -----+ Discontinuation of antibiotics in high-acuity patients with suspected or confirmed sepsis in Adults >= 18 years of age. + +-------- --------+ + -----+|Procalcitonin |Interpretation ?|Antibiotic ? ? |Considerations ? |ng/mL ? | ?|recommendation | ? + +-------- --------+ + -----+| <0.25 ?| Bacterial ? ? ?| Strongly ? ? ?| ? | ?| infection very | discouraged ? | Overruling: ? | ?| unlikely ? ? ? | ? | ? Clinically unstable ? ? ? + +-------- --------+ + ? High risk for adverse ? ? | <0.5 or drop | Bacterial ? ? ?| Discouraged ? | ? outcome ? | >80% from ? ?| infection ? ? ?| ? | ? SEE IMPORTANT NOTE ?| highest PCT ?| unlikely ? ? ? | ? | ? | level ?| ?| ? | ? + +-------- --------+ + -----+| >=0.5 ?| Bacterial ? ? ?| Encouraged ? ?| ? | ?| infection ? ? ?| ? | ? | ?| likely ? | ? | Consider treatment failure ?+ +------- ---------+ -+ if levels does not decrease | >1.0 ? | Bacterial ? ? ?| Strongly ? ? ?| appropriately ? | ?| infection very | encouraged ? ?| ? | ?| likely ? | ? | ? + +-------- --------+ + -----+ Percentage of drop of Procalcitonin calculation for Discontinuation of antibiotics in high-acuity patients with suspected or confirmed sepsis in Adults >= 18 years of age. ? Procalcitonin highest{}-Procalcitonin current{}Delta Procalcitonin = x100% ? Procalcitonin current {} IMPORTANT NOTE: Procalcitonin may be elevated without bacterial infection by physiologic stress related to trauma, mirza, chronic dialysis, metastatic cancer, surgery in the past seven days, malaria, some fungal infections, and some forms of vasculitis. The interpretation algorithm may not apply to patients with immunosuppression (equivalent of >10 mg of prednisone daily), HIV with CD4 cell count < 350 cells/mm3, active malignancy on systemic chemotherapy, solid organ transplant or hematopoietic stem cell transplantation, or hospital acquired pneumonia. Additionally, some clinical trials of procalcitonin have excluded patients with shock requiring vasopressor use, acute respiratory failure requiring mechanical ventilation, or those with known lung abscess/empyema. For further information please refer to:[email or web address] Lab Interpretation (test code = 15093-3) Normal [facility] HospitalLactic Acid Whole [id number] 16:01:14* Test Item Value Reference Range Interpretation Comme nts LACTIC ACID (test code = 9641655019) 1.87 mmol/L 0.50-2.20 Lab Interpretation (test cod e = 16575-9) Normal [facility] HospitalLactic Acid Whole [id number] 13:12:25* Test Item Value Reference Range Interpretation Comme nts LACTIC ACID (test code = 7308404114) 6.23 mmol/L 0.50-2.20 H Lab Interpretation (test cod e = 14153-1) Abnormal [facility]. METABOLIC PANEL (59960)2024-07-18 12:56:44* Test Item Value Reference Range Interpretation Comme nts NA (test code = 0003241534) 140 mmol/L 135-145 K (test code = 4920956076) 4.1 mmol/L 3.5-5.0 CL (test code = 8006291017) 102 mmol/L 98-108 CO2 TOTAL (test code = 6039643490) 20 mmol/L 23-31 L AGAP (test code = 5234204834) 18 2-16 H BUN (test code = 9282526091) 10 mg/dL 7-23 GLUCOSE (test code = 0652455610) 123 mg/dL 70-110 H CREATININE (test code = 2160-0) 0.59 mg/dL 0.60-1.25 L TOTAL BILI (test code = 2211531363) 0.6 mg/dL 0.1-1.1 CALCIUM (test code = 0832969885) 9.1 mg/dL 8.6-10.6 T PROTEIN (test code = 9547998833) 7.8 g/dL 6.3-8.2 ALBUMIN (test code = 2802105613) 4.9 g/dL 3.5-5.0 ALK PHOS (test code = 2896985338) 75 U/L 34-122 ALTv (test code = 1742-6) 23 U/L 5-50 AST(SGOT) (test code = 5684340150) 34 U/L 13-40 eGFR (test code = 41792-3) 113.9 mL/min/1.73m2 CKD-EPI eGFR (2020). Assuming creatinine has been stable day-to-day for at least three months, the eGFR indicates Category G1 (>= 90 mL/min/1.73 m2) Lab Interpretation (test code = 17592-2) Abnormal [facility] HospitalCritical [id number] 12:12:28Shay Stinson MD ? ? 07/18/2024 ?8:56 AMCritical Care Performed by: Shay Stinson MDAuthorized by: Shay Stinson MD ?Critical care provider statement: ?Critical care time (minutes): ?35 ?Critical care time was exclusive of: ?Separately billable procedures and treating other patients ?Critical care was necessary to treat or prevent imminent or life-threatening deterioration of the following conditions: ?Cardiac failure, circulatory failure, respiratory failure, sepsis, shock, renal failure and dehydration ?Critical care was time spent personally by me on the following activities: ?Development of treatment plan with patient or surrogate, discussions with consultants, evaluation of patient's response to treatment, examination of patient, obtaining history from patient or surrogate, ordering and performing treatments and interventions, ordering and review of laboratory studies,ordering and review of radiographic studies, pulse oximetry, re-evaluation of patient's condition and review of old charts ?I assumed direction of critical care for this patient from another providerin my specialty: yes ? ?Care discussed with: admitting provider ? [facility] [id number] 12:08:40* Test Item Value Reference Range Interpretation Comme nts TROPONIN I (test code = 0642590956) 0.015 ng/mL <=0.034 LOUISE (test code = LOUISE) [...] of biotin. Lab Interpretation (test code = 63738-2) Normal [facility] HospitalN-TERMINAL [id number] 12:01:41* Test Item Value Reference Range Interpretation Comme nts NT-proBNP (test code = 76342-2) 111 pg/mL <=125 Lab Interpretation (test cod e = 38608-7) Normal [facility] HospitalXR CHEST 1 [id number] 11:57:22ORDERING PHYSICIAN: ?BLU MCGUIRE CLINICAL HISTORY: Shortness of breath TECHNIQUE: Frontal view of chest COMPARISON: 07/17/2024 FINDINGS: The cardiac silhouette is mildly enlarged, stable. ?Stable right lower lobepatchy infiltrate. There are no effusions. The left lung is clear. Osseous structures are normal.[facility] HospitalETHANOL2024-09-09 11:53:01* Test Item Value Reference Range Interpretation Comme nts ALCOHOL (test code = 3829116439) 91 mg/dL LOUISE (test code = LOUISE) <10 Arnafjsl51-764 Toxic>100 Depression of RESOLUTION EXPERT>400 Fatalities Reported [facility] WITH [id number] 11:36:10* Test Item Value Reference Range Interpretation Comme nts WBC (test code = 6690-2) 14.72 4.20-10.70 H RBC (test code = 789-8) 3.56 4.26-5.52 L HGB (test code = 718-7) 11.3 g/dL 12.2-16.4 L HCT (test code = 4544-3) 34.9 % 38.4-49.3 L MCV (test code = 787-2) 98.0 fL 81.7-95.6 H MCH (test code = 785-6) 31.7 pg 26.1-32.7 MCHC (test code = 786-4) 32.4 g/dL 31.2-35.0 RDW-SD (test code = 00036-8) 58.6 fL 38.5-51.6 H RDW-CV (test code = 788-0) 16.3 % 12.1-15.4 H PLT (test code = 777-3) 229 150-328 MPV (test code = 47748-5) 9.0 fL 9.8-13.0 L NRBC/100 WBC (test code = 3733120733) 0.0 0.0-10.0 NRBC x10^3 (test code = 6122605365) See_Comment [Automated message] The system which generated this result transmitted reference range: 10*3/?L. The reference range was not used to interpret this result as normal/abnormal. GRAN MAT (NEUT) % (test code = 770-8) 76.7 % IMM GRAN % (test code = 2052709200) 0.80 % LYMPH % (test code = 736-9) 15.8 % MONO % (test code = 5905-5) 6.6 % EOS % (test code = 713-8) 0.0 % BASO % (test code = 706-2) 0.1 % GRAN MAT x10^3(ANC) (test code = 7855337147) 11.29 10*3/uL 1.99-6.95 H IMM GRAN x10^3 (test code = 6494728543) 0.12 10*3/uL 0.00-0.06 H LYMPH x10^3 (test code = 731-0) 2.32 10*3/uL 1.09-3.23 MONO x10^3 (test code = 742-7) 0.97 10*3/uL 0.36-1.02 EOS x10^3 (test code = 711-2) 0.06-0.53 L BASO x10^3 (test code = 704-7) 0.01-0.09 Lab Interpretation (test code = 86618-1) Abnormal [facility] 1 [id number] 02:23:27EXAM: ?XR CHEST 1 VW HISTORY: ?dyspnea Ordering physician: BLU MCGUIRE COMPARISON: Chest x-ray from February 08, 2024. TECHNIQUE: Frontal chest x-ray. ? FINDINGS: Heart size is stable. Pulmonary vessels are normal. Mild infiltrate in theright lower lung is present. No pneumothorax or pleural effusion isdetected. Mediastinal contour is normal. No free air is discerned. There isno displaced rib fracture. ?[facility] HospitalCOMPREHENSIVE METABOLIC PANEL 2024-05-28 00:00:00* Test Item Value Reference Range Interpretation Comme nts GLUCOSE (test code = 2217) 145 MG/DL BUN (test code = 2208) 8 MG/DL CREATININE (test code = 2214) 0.71 MG/DL eGFR (2020 CKD-EPI) (test code = 54967) 108 ML/MIN/1.73 CALC BUN/CREAT (test code = [...] (test code = 2219) 11 U/L Tunde Quiñonez TahirHEMOGLOBIN [id number] 00:00:00* Test Item Value Reference Range Interpretation Comme nts HEMOGLOBIN A1c (test code = 79342) 5.5 % Tunde Olamide TahirLIPID [id number] 00:00:00* Test Item Value Reference Range Interpretation Comme nts CHOLESTEROL (test code = 2210) 234 MG/DL TRIGLYCERIDES (test code = 2232) 176 MG/DL HDL CHOLESTEROL (test code = 2220) 80 MG/DL CALC LDL CHOL (test code = 2237) 125 MG/DL RISK RATIO LDL/HDL (test cod e = 2238) 1.56 RATIO Tunde Olamide TahirCBC W/AUTO [id number] 00:00:00* Test Item Value Reference Range Interpretation [...] ABS NUCLEATED RBCS (test cod e = 58517) 0.00 K/UL Tunde HaroWhkdjjMpbxgxp5947-34-20 21:47:04* Test Item Value Reference Range Interpretation Comme nts ALCOHOL (test code = 7557924312) 329 mg/dL LOUISE (test code = LOUISE) <10 Kqomfcjd00-302 Toxic>100 Depression of RESOLUTION EXPERT>400 Fatalities Reported [facility] HospitalAC Panel 20 + Lactic Emso8865-91-87 20:52:47* Test Item Value Reference Range Interpretation Comme nts PH (test code = 2) 7.39 7.35-7.45 PCO2 (test code = 2741079219) 42 35-45 PO2 (test code = 6876147856) 76 80-100 L HCO3 (test code = 7184126260) 25 22-26 BE (test code = 7651782953) -0.1 -3.0-3.0 THB (test code = 9849607255) 14.3 g/dL 13.5-18.0 %O2HB (test code = 0345982876) 85.8 % 94.0-99.0 L %COHB ART (test code = 1851454100) 9.0 % 0.0-1.5 H %METHB ART (test code = 6233960116) 0.3 % 0.4-1.5 L VOL%O2 ART (test code = 6711188506) 17.3 % 15.0-23.0 NA (test code = 6762812975) 140 mmol/L 135-145 K+ (test code = 5545019455) 4.1 mmol/L 3.5-5.0 AC CA IONZ (test code = 2895452554) 4.50 mg/dL 4.50-5.30 GLUCOSE (test code = 7768318012) 105 mg/dL 70-110 LACTIC ACID (test code = 0507362287) 2.60 mmol/L 0.50-2.20 H Lab Interpretation (test cod e = 35868-9) Abnormal [facility] HospitalTroponin [id number] 20:34:14* Test Item Value Reference Range Interpretation Comme nts TROPONIN I (test code = 7906773315) 0.008 ng/mL <=0.034 LOUISE (test code = [...] of biotin. Lab Interpretation (test code = 75343-8) Normal [facility] HospitalN-Terminal Ylg-Imi1617-34-01 20:31:35* Test Item Value Reference Range Interpretation Comme nts NT-proBNP (test code = 24287-9) 188 pg/mL <=125 LOUISE (test code = LOUISE) Result Indeterminate-Consid er causes of NT-proBNP elevation other than Heart failure such as acute coronary syndrome, pulmonary embolism, pulmonary hypertension, sepsis, stroke, and renal dysfunction. Lab Interpretation (test code = 65479-2) Abnormal [facility] HospitalComp. Metabolic Panel (62686)2024-02-08 20:21:10* Test Item Value Reference Range Interpretation Comme nts NA (test code = 0676190398) 135 mmol/L 135-145 K (test code = 9761489302) 4.5 mmol/L 3.5-5.0 CL (test code = 2119759404) 100 mmol/L 98-108 CO2 TOTAL (test code = 8692672856) 22 mmol/L 23-31 L AGAP (test code = 4901354135) 13 2-16 BUN (test code = 3307883129) 8 mg/dL 7-23 GLUCOSE (test code = 6481859819) 97 mg/dL 70-110 CREATININE (test code = 2160-0) 0.65 mg/dL 0.60-1.25 TOTAL BILI (test code = 3035833604) 0.4 mg/dL 0.1-1.1 CALCIUM (test code = 9806766466) 9.4 mg/dL 8.6-10.6 T PROTEIN (test code = 3108276816) 8.2 g/dL 6.3-8.2 ALBUMIN (test code = 7816896474) 4.7 g/dL 3.5-5.0 ALK PHOS (test code = 8485440387) 76 U/L 34-122 ALTv (test code = 1742-6) 33 U/L 5-50 AST(SGOT) (test code = 4615697418) 54 U/L 13-40 H eGFR (test code = 96791-0) 111.3 mL/min/1.73m2 CKD-EPI eGFR (2020). Assuming creatinine has been stable day-to-day for at least three months, the eGFR indicates Category G1 (>= 90 mL/min/1.73 m2) Lab Interpretation (test code = 54185-6) Abnormal [facility] HospitalMagnesium2024-04-01 20:21:10* Test Item Value Reference Range Interpretation Comme nts MAGNESIUM (test code = 5663830741) 2.1 mg/dL 1.7-2.4 Lab Interpretation (test cod e = 88394-7) Normal [facility] 1 [id number] 20:07:21EXAM: XR CHEST 1 VW COMPARISON: 01/14/2024 HISTORY: sob FINDINGS: Lungs: Slightly hyperexpanded lungswith subtle progression of interstitialprominence. Trace pleural effusions could be present. Heart/Mediastinum: Stable cardiomegaly. Bones and soft tissues: No osseous abnormality is visualized.[facility] Cbc with Xmre5855-36-48 20:04:26* Test Item Value Reference Range Interpretation [...] 33.8 g/dL 31.2-35.0 RDW-SD (test code = 83801-9) 50.5 fL 38.5-51.6 RDW-CV (test code = 788-0) 14.3 % 12.1-15.4 PLT (test code = 777-3) 206 150-328 MPV (test code = 60609-2) 9.1 fL 9.8-13.0 L NRBC/100 WBC (test code = 4303058685) 0.0 0.0-10.0 NRBC x10^3 (test code = 2840180431) See_Comment [Automated messa ge] The system which generated this result transmitted reference range: 10*3/?L. The reference range was not used to interpret this result as normal/abnormal. GRAN MAT (NEUT) % (test code = 770-8) 81.0 % IMM GRAN % (test code = 9700094269) 1.20 % LYMPH % (test code = 736-9) 10.9 % MONO % (test code = 5905-5) 6.8 % EOS % (test code = 713-8) 0.0 % BASO % (test code = 706-2) 0.1 % GRAN MAT x10^3(ANC) (test code = 1976945032) 9.31 10*3/uL 1.99-6.95 H IMM GRAN x10^3 (test code = 4239394281) 0.14 10*3/uL 0.00-0.06 H LYMPH x10^3 (test code = 731-0) 1.25 10*3/uL 1.09-3.23 MONO x10^3 (test code = 742-7) 0.78 10*3/uL 0.36-1.02 EOS x10^3 (test code = 711-2) 0.06-0.53 L BASO x10^3 (test code = 704-7) 0.01-0.09 Lab Interpretation (test code = 21630-8) Abnormal [facility] HospitalCOMP. METABOLIC PANEL ([id number])2023-12-23 04:53:26* Test Item Value Reference Range Interpretation Comme nts NA (test code = 2243874149) 135 mmol/L 135-145 K (test code = 9609713187) 3.2 mmol/L 3.5-5.0 L CL (test code = 4859379981) 104 mmol/L 98-108 CO2 TOTAL (test code = 9845848505) 23 mmol/L 23-31 AGAP (test code = 7918044075) 8 2-16 BUN (test code = 2831476931) 11 mg/dL 7-23 GLUCOSE (test code = 3764003763) 82 mg/dL 70-110 CREATININE (test code = 2160-0) 0.64 mg/dL 0.60-1.25 TOTAL BILI (test code = 4428960344) 0.5 mg/dL 0.1-1.1 CALCIUM (test code = 5226208349) 8.8 mg/dL 8.6-10.6 T PROTEIN (test code = 9077633834) 6.7 g/dL 6.3-8.2 ALBUMIN (test code = 3479778444) 4.1 g/dL 3.5-5.0 ALK PHOS (test code = 8176480554) 46 U/L 34-122 ALTv (test code = 1742-6) 21 U/L 5-50 AST(SGOT) (test code = 2136439335) 43 U/L 13-40 H eGFR (test code = 69829-9) 111.8 mL/min/1.73m2 CKD-EPI eGFR (2020). Assuming creatinine has been stable day-to-day for at least three months, the eGFR indicates Category G1 (>= 90 mL/min/1.73 m2) Lab Interpretation (test code = 66396-7) Abnormal [facility] HospitalLIPASE2024-02-14 04:53:26* Test Item Value Reference Range Interpretation Comme nts LIPASE (test code = 2574418954) 105 U/L 0-220 Lab Interpretation (test cod e = 27494-8) Normal [facility] HospitalCB WITH [id number] 04:34:24* Test Item Value Reference Range Interpretation [...] 33.0 g/dL 31.2-35.0 RDW-SD (test code = 30548-9) 50.9 fL 38.5-51.6 RDW-CV (test code = 788-0) 13.7 % 12.1-15.4 PLT (test code = 777-3) 232 150-328 MPV (test code = 63904-9) 8.7 fL 9.8-13.0 L NRBC/100 WBC (test code = 2357725167) 0.0 0.0-10.0 NRBC x10^3 (test code = 9616233259) See_Comment [Automated messa ge] The system which generated this result transmitted reference range: 10*3/?L. The reference range was not used to interpret this result as normal/abnormal. GRAN MAT (NEUT) % (test code = 770-8) 58.8 % IMM GRAN % (test code = 6546236409) 0.90 % LYMPH % (test code = 736-9) 27.8 % MONO % (test code = 5905-5) 10.5 % EOS % (test code = 713-8) 1.3 % BASO % (test code = 706-2) 0.7 % GRAN MAT x10^3(ANC) (test code = 1250263605) 5.68 10*3/uL 1.99-6.95 IMM GRAN x10^3 (test code = [id number]) 0.09 10*3/uL 0.00-0.06 H LYMPH x10^3 (test code = 731-0) 2.69 10*3/uL 1.09-3.23 MONO x10^3 (test code = 742-7) 1.02 10*3/uL 0.36-1.02 EOS x10^3 (test code = 711-2) 0.13 10*3/uL 0.06-0.53 BASO x10^3 (test code = 704-7) 0.07 10*3/uL 0.01-0.09 Lab Interpretation (test code = 69158-9) [id number] 03:32:43Exam: CT Abdomen and Pelvis With Contrast, 12/21/2023 7:45 PM. Ordering Physician: QUENTIN HASTINGS. History: Diverticulitis, complication suspected . Comparison: CT [...] acute osseous abnormality.Soft tissues: Small fat-containing inguinal hernias.[place] [facility]:32:24* Test Item Value Reference Range Interpretation Comme nts ALCOHOL (test code = 8898549330) 117 mg/dL LOUISE (test code = LOUISE) <10 [id number] Toxic>100 Depression of RESOLUTION EXPERT>400 Fatalities Reported [facility]. Metabolic Panel (19829)2023-12-22 02:31:43* Test Item Value Reference Range Interpretation Comme nts NA (test code = 2222271766) 133 mmol/L 135-145 L K (test code = 2368282652) 3.3 mmol/L 3.5-5.0 L CL (test code = 8512304007) 102 mmol/L 98-108 CO2 TOTAL (test code = 8556618026) 25 mmol/L 23-31 AGAP (test code = 4345257889) 6 2-16 BUN (test code = 3984476167) 11 mg/dL 7-23 GLUCOSE (test code = 4097667366) 75 mg/dL 70-110 CREATININE (test code = 1561958586) 0.51 mg/dL 0.60-1.25 L TOTAL BILI (test code = 0843366993) 0.5 mg/dL 0.1-1.1 CALCIUM (test code = 7726395514) 8.9 mg/dL 8.6-10.6 T PROTEIN (test code = 2575685604) 7.2 g/dL 6.3-8.2 ALBUMIN (test code = 2046165598) 4.5 g/dL 3.5-5.0 ALK PHOS (test code = 1427033994) 46 U/L 34-122 ALTv (test code = 1742-6) 15 U/L 5-50 AST(SGOT) (test code = 8518300133) 24 U/L 13-40 eGFR (test code = 97634-5) 119.7 mL/min/1.73m2 CKD-EPI eGFR (2020). Assuming creatinine has been stable day-to-day for at least three months, the eGFR indicates Category G1 (>= 90 mL/min/1.73 m2) Lab Interpretation (test code = 03098-1) [facility]43* Test Item Value Reference Range Interpretation Comme nts LIPASE (test code = 3367067333) 121 U/L 0-220 Lab Interpretation (test cod e = 04358-4) Normal [facility] / [id number] 02:21:02* Test Item Value Reference Range Interpretation Comme nts PROTIME PATIENT (test code = 5964-2) 10.5 10.1-12.6 INR (test code = 6301-6) 0.9 Normal INR <1.1; Warfarin Therapeutic range 2.0 to 3.0 or 2.5 to 3.5, depending upon the indications. Lab Interpretation (test code = 12293-3) [facility] with [id number] 02:14:04* Test Item Value Reference Range Interpretation [...] 34.0 g/dL 31.2-35.0 RDW-SD (test code = 29511-9) 49.1 fL 38.5-51.6 RDW-CV (test code = 788-0) 13.5 % 12.1-15.4 PLT (test code = 777-3) 260 150-328 MPV (test code = 97863-1) 8.7 fL 9.8-13.0 L NRBC/100 WBC (test code = 9341791893) 0.0 0.0-10.0 NRBC x10^3 (test code = 9332077278) See_Comment [Automated messa ge] The system which generated this result transmitted reference range: 10*3/?L. The reference range was not used to interpret this result as normal/abnormal. GRAN MAT (NEUT) % (test code = 770-8) 64.3 % IMM GRAN % (test code = 8429094809) 0.90 % LYMPH % (test code = 736-9) 24.2 % MONO % (test code = 5905-5) 9.1 % EOS % (test code = 713-8) 0.7 % BASO % (test code = 706-2) 0.8 % GRAN MAT x10^3(ANC) (test code = 5094903650) 8.73 10*3/uL 1.99-6.95 H IMM GRAN x10^3 (test code = 3995115048) 0.12 10*3/uL 0.00-0.06 H LYMPH x10^3 (test code = 731-0) 3.28 10*3/uL 1.09-3.23 H MONO x10^3 (test code = 742-7) 1.23 10*3/uL 0.36-1.02 H EOS x10^3 (test code = 711-2) 0.10 10*3/uL 0.06-0.53 BASO x10^3 (test code = 704-7) 0.11 10*3/uL 0.01-0.09 H Lab Interpretation (test code = 84994-2) Abnormal [facility] [id number] 10:16:22* Test Item Value Reference Range Interpretation Comments TROPONIN I (test code = 9340834055) 0.007 ng/mL See_Comment [Automated message] The system [...] of biotin. Lab Interpretation (test code = 49983-8) Normal [facility]MINAL [id number] 10:13:01* Test Item Value Reference Range Interpretation Comme nts NT-proBNP (test code = 4676393663) 52 pg/mL See_Comment [Automated message] The system which generated this result transmitted reference range: <=125. The reference range was not used to interpret this result as normal/abnormal. LOUISE (test code = LOUISE) Biotin has been reported to cause a negative bias, interpret results relative to patient's use of biotin. Lab Interpretation (test code = 66907-2) [facility] (03460)2022-02-20 10:04:02* Test Item Value Reference Range Interpretation Comme nts NA (test code = 0018315699) 137 mmol/L 135-145 K (test code = 3104042002) 3.6 mmol/L 3.5-5.0 CL (test code = 2725776920) 99 mmol/L 98-108 CO2 TOTAL (test code = 3777999385) 25 mmol/L 23-31 AGAP (test code = 9005034030) 2-16 BUN (test code = 7241790539) 6 mg/dL 7-23 L GLUCOSE (test code = 2221218904) 88 mg/dL 70-110 CREATININE (test code = 2787333952) 0.55 mg/dL 0.60-1.25 L TOTAL BILI (test code = 7894282123) 0.8 mg/dL 0.1-1.1 CALCIUM (test code = 9003614864) 8.9 mg/dL 8.6-10.6 T PROTEIN (test code = 1844220943) 7.5 g/dL 6.3-8.2 ALBUMIN (test code = 4944690415) 4.8 g/dL 3.5-5.0 ALK PHOS (test code = 0638070575) 113 U/L 34-122 ALTv (test code = 1742-6) 84 U/L 5-50 H AST(SGOT) (test code = 2121871070) 107 U/L 13-40 H eGFR (test code = 1426212526) mL/min/1.73m2 LOUISE (test code = LOUISE) Association [...] imaging tests). Lab Interpretation (test code = 93184-0) [facility]normal [facility], [id number] 10:03:21* Test Item Value Reference Range Interpretation Comme nts LIPASE (test code = 2451717459) 193 U/L 0-220 Lab Interpretation (test cod e = 29317-7) Normal [facility] WITH [id number] 09:39:17* Test Item Value Reference Range Interpretation [...] g/dL 31.2-35.0 H RDW-SD (test code = 21766-6) 44.4 fL 38.5-51.6 RDW-CV (test code = 788-0) 11.9 % 12.1-15.4 L PLT (test code = 777-3) See_Comment [Automated messa ge] The system which generated this result transmitted reference range: 150 - 328 10*3/?L. The reference range was not used to interpret this result as normal/abnormal. MPV (test code = 99061-1) 9.2 fL 9.8-13.0 L NRBC/100 WBC (test code = 6956258414) See_Comment [Automated [facility] ssage] The system which generated this result transmitted reference range: 0.0 - 10.0 /100 WBCs. The reference range was not used to interpret this result as normal/abnormal. NRBC x10^3 (test code = 6310813178) <0.01 See_Comment [Automated messa ge] The system which generated this result transmitted reference range: 10*3/?L. The reference range was not used to interpret this result as normal/abnormal. GRAN MAT (NEUT) % (test code = 770-8) 69.9 % IMM GRAN % (test code = 8021919349) 1.50 % LYMPH % (test code = 736-9) 18.9 % MONO % (test code = 5905-5) 7.0 % EOS % (test code = 713-8) 1.9 % BASO % (test code = 706-2) 0.8 % GRAN MAT x10^3(ANC) (test code = 5733672481) 7.15 10*3/uL 1.99-6.95 H IMM GRAN x10^3 (test code = 4233440648) 0.15 10*3/uL 0.00-0.06 H LYMPH x10^3 (test code = 731-0) 1.93 10*3/uL 1.09-3.23 MONO x10^3 (test code = 742-7) 0.72 10*3/uL 0.36-1.02 EOS x10^3 (test code = 711-2) 0.19 10*3/uL 0.06-0.53 BASO x10^3 (test code = 704-7) 0.08 10*3/uL 0.01-0.09 Lab Interpretation (test code = 94653-0) [facility] History and Physical Notes Date/Time Note Provider Source 2024-07-18 16:12:08 Medicine History & Physical Date of Service: 07/18/2024 Pt presents from: Home CC: Shortness of breath History of Present Illness: Randy Grimm is a 54 year old male with past md hx of COPD, hypertension, alcohol abuse, active smoker and osteoporosis that presents to the ED for shortness of breath. Per patient he was out of work last week due to the poor weather and spent that time drinking approximately 2 and half cases of beer daily during that time he also went to [employer] with some friends and did cocaine denies other drugs. Over the past few days he has become increasingly short of breath and today going to work he became both short of breath along with anxious as his last drink was approximately 1 day before. Due to this he came to the ED for evaluation. In the emergency department he was noted to be tachycardic heart rate up to 141 bpm tachypneic also hypertensive. Initial labs show an elevated white blood cell count of 14.7 MCV is noted to be elevated. ANC is also noted to be elevated. Chemistry shows initially a bicarb of 20 mmol/L. With an elevated anion gap of 18. Talk screen was performed and was negative. On admission patient was noted to have lactic acid dosis with an elevated lactic of 6.23 mmol/L. He was noted to be tremulous given Ativan with some improvement and hospitalist was called for admission. On exam patient is still tremulous anxious. Having difficulty relating his history. ROS: Pt denies F / N / V / D / Constipation / CP / SOB / cough / Abd pain / dysuria / hematuria / melena / hematochezia / rashes / suicidal or homicidal ideation / All others negative Review of Hx/Meds: PMH: Past Medical History: Diagnosis Date Alcohol abuse Alcohol withdrawal COPD (chronic obstructive pulmonary disease) Hypertension Tobacco abuse PSH: has no past surgical history on file. Family Hx: Noncontributory unless mentioned above Social History Tobacco Use Smoking status: Every Day Passive exposure: Never Smokeless tobacco: Current Tobacco comments: trying to quit Substance Use Topics Alcohol use: Yes Alcohol/week: 30.0 standard drinks of alcohol Types: 30 Cans of beer per week Comment: 2 1/2 cases daily Drug use: Yes Types: Cocaine Comment: Crack Current Scheduled Medications Current IV Current Facility-Administered Medications: dexMEDEtomidine 200 mcg in 0.9 % NaCl 50 mL (PRECEDEX) RTU IV infusion, 0.2-1.5 mcg/kg/hr, IV Infusion, TITRATE, Julien Marks DO, Last Rate: 4.2 mL/hr at 07/18/24 1057, 0.2 mcg/kg/hr at 07/18/24 1057 enoxaparin (LOVENOX) injection 40 mg, 40 mg, Subcutaneous, DAILY, Julien Marks DO foLIC acid (FOLATE) tablet 1 mg, 1 mg, Oral, DAILY, Julien Marks DO, 1 mg at 07/18/24 1015 nicotine (NICODERM) 21 mg/24 hr patch 1 Patch, 1 Patch, Topical, Q24H, Julien Marks DO, 1 Patch at 07/18/24 1334 oxazepam (SERAX) capsule 15 mg, 15 mg, Oral, Q6H TAPER, 15 mg at 07/18/24 1014 FOLLOWED BY [START ON 07/19/2024] oxazepam (SERAX) capsule 15 mg, 15 mg, Oral, Q8H TAPER FOLLOWED BY [START ON 07/20/2024] oxazepam (SERAX) capsule 15 mg, 15 mg, Oral, Q12H TAPER, Julien Marks DO oxazepam (SERAX) capsule 15 mg, 15 mg, Oral, Q4HPRN, Julien Marks DO thiamine mononitrate (VITAMIN B-1 (MONONITRATE)) tablet 100 mg, 100 mg, Oral, DAILY, Julien Marks DO, 100 mg at 07/18/24 1015 Objective: Vitals: Vitals: 07/18/24 1130 07/18/24 1200 07/18/24 1300 07/18/24 1400 BP: (!) 141/70 124/52 109/57 Pulse: 98 100 84 79 Resp: 17 17 18 18 Temp: 37.2 ?C (99 ?F) 37.1 ?C (98.7 ?F) TempSrc: Tympanic Tympanic SpO2: 98% 100% 98% 97% Weight: Height: I/O's: Intake/Output Summary (Last 24 hours) at 07/18/2024 1612 Last data filed at 07/18/2024 1300 Gross per 24 hour Intake -- Output 950 ml Net -950 ml Physical Exam: General: Anxious,, lying in bed, cogent speech, HEENT: anicteric, oral mucosa dry Neck: supple, no JVD, no bruits. Chest: CTA B/L, no W/R/C. Heart: Tachycardic, S1/S2, no M/G/R Abdominal: BS normoactive, soft, ND, NT. Skin/Extremities: no rash, no cyanosis, warm and dry, no LE edema. Neurological: CN II-XII grossly intact, tremulous Labs: BMP:BMP NA (mmol/L) Date Value 07/18/2024 140 07/17/2024 138 02/08/2024 135 01/14/2024 138 12/22/2023 135 K (mmol/L) Date Value 07/18/2024 4.1 07/17/2024 3.8 02/08/2024 4.5 01/14/2024 3.9 12/22/2023 3.2 (L) CALCIUM (mg/dL) Date Value 07/18/2024 9.1 07/17/2024 8.6 02/08/2024 9.4 01/14/2024 9.0 12/22/2023 8.8 CL (mmol/L) Date Value 07/18/2024 102 07/17/2024 101 02/08/2024 100 01/14/2024 101 12/22/2023 104 BUN (mg/dL) Date Value 07/18/2024 10 07/17/2024 8 02/08/2024 8 01/14/2024 16 12/22/2023 11 CREATININE (mg/dL) Date Value 07/18/2024 0.59 (L) 07/17/2024 0.61 02/08/2024 0.65 01/14/2024 0.96 12/22/2023 0.64 GLUCOSE (mg/dL) Date Value 07/18/2024 123 (H) 07/17/2024 163 (H) 02/08/2024 97 01/14/2024 92 12/22/2023 82 CO2 TOTAL (mmol/L) Date Value 07/18/2024 20 (L) 07/17/2024 18 (L) 02/08/2024 22 (L) 01/14/2024 29 12/22/2023 23 CBC:CBC WBC (10*3/?L) Date Value 07/18/2024 14.72 (H) RBC (10*6/?L) Date Value 07/18/2024 3.56 (L) PLT (10*3/?L) Date Value 07/18/2024 229 HGB (g/dL) Date Value 07/18/2024 11.3 (L) HCT (%) Date Value 07/18/2024 34.9 (L) BMP:Hepatic Function Panel ALBUMIN (g/dL) Date Value 07/18/2024 4.9 T PROTEIN (g/dL) Date Value 07/18/2024 7.8 TOTAL BILI (mg/dL) Date Value 07/18/2024 0.6 BILI UNCON (mg/dL) Date Value 03/24/2018 0.2 BILI CONJ (mg/dL) Date Value 03/24/2018 0.0 ALT(SGPT) (U/L) Date Value 03/26/2018 38 ALTv (U/L) Date Value 07/18/2024 23 AST(SGOT) (U/L) Date Value 07/18/2024 34 ALK PHOS (U/L) Date Value 07/18/2024 75 Troponin: Recent Labs 07/18/24 0618 TROPNI 0.015 I have reviewed all relevant labs Imaging: CT THORAX WO CONTRAST Result Date: 07/18/2024 PROCEDURE: CT CHEST WITHOUT CONTRAST - CHEST PROTOCOL CLINICAL INDICATION: History of COPD presents with shortness of breath Comparison: Same day chest radiograph and chest CT dated 03/25/2018 TECHNIQUE: Volumetric images of the chest were acquired (from lung apices to bases).Images were reconstructed at 2.5 mm slice thickness. MIP axial images, coronal and sagittal reformats were also submitted for interpretation. FINDINGS: LUNGS AND PLEURA: The lungs are well-expanded. Consolidative opacity is seen in the right middle lobe with air bronchograms. Scattered groundglass opacities are seen in the right upper, right lower, and left lower lobes. Mild diffuse centrilobular emphysema is seen. No suspicious nodules. No pleural abnormality detected. LYMPH NODES: Scattered small lymph nodes in both sides of the mediastinum and hilar regions. No evidence of intrathoracic lymphadenopathy. MEDIASTINUM AND LOWER NECK: No central airway lesions are detected. The esophagus is within normal limits. The included thyroid gland appears normal. HEART AND GREAT VESSELS: The heart is normal in size. No pericardial abnormalities are identified. The RV to LV is normal. The thoracic aorta is normal in caliber, with mild atherosclerotic plaque. Mild atherosclerotic calcifications of the coronary vessels. The pulmonary trunk is normal in caliber. VISUALIZED UPPER ABDOMEN: A 5 mm calyceal calculus is seen in the left upper renal pole. OSSEOUS STRUCTURES AND SOFT TISSUES: No focal osseous lesions are detected. The soft tissues appear normal. 1. Findings compatible with multifocal pneumonia, mainly in the right middle lobe. 2. Left nephrolithiasis. 3. Mild coronary calcifications. Preliminary Report Dictated by Resident: Manjit Aleman XR CHEST 1 VW Result Date: 07/18/2024 ORDERING PHYSICIAN: BLU MCGUIRE CLINICAL HISTORY: Shortness of breath TECHNIQUE: Frontal view of chest COMPARISON: 07/17/2024 FINDINGS: The cardiac silhouette is mildly enlarged, stable. Stable right lower lobe patchy infiltrate. There are no effusions. The left lung is clear. Osseous structures are normal. Stable right lower lobe patchy infiltrate. There are no effusions. The left lung is clear. RL: 5252 ELBOW 3+ VW RIGHT Result Date: 07/18/2024 EXAM: XR ELBOW 3+ VW RIGHT HISTORY: 54 years-old Male with right elbow pain COMPARISON: None. FINDINGS: Radiographs of the right elbow were obtained. No acute fractures or dislocations are visualized. The joint spaces are preserved and the alignment is anatomic. There is soft tissue swelling over the olecranon. Distal humeral epicondylar enthesophyte formation is seen. Soft tissue swelling without acute osseous abnormality. Preliminary Report Dictated by Resident: Jr Calix MD., have reviewed this study and agree with the above report. XR CHEST 1 VW Result Date: 07/17/2024 EXAM: XR CHEST 1 VW HISTORY: dyspnea Ordering physician: BLU MCGUIRE COMPARISON: Chest x-ray from February 08, 2024. TECHNIQUE: Frontal chest x-ray. FINDINGS: Heart size is stable. Pulmonary vessels are normal. Mild infiltrate in the right lower lung is present. No pneumothorax or pleural effusion is detected. Mediastinal contour is normal. No free air is discerned. There is no displaced rib fracture. Mild infiltrate in the right lower lung. RL: [id number] End of report. Assessment and plan: Principal Problem: Community acquired pneumonia of right lower lobe of lung Multifocal pneumonia - Continue IV antibiotics ( given presentation concern for aspiration will start Unasyn) - Follow-up procalcitonin, strep and Legionella - Continue oxygen, wean as tolerated - Trend fever white blood cell count Alcohol withdrawal: - Started on Serax taper - Start Precedex - Start thiamine and folic acid - Counseled to quit drinking Cocaine abuse: - Counseled to quit - Serax as needed Metabolic acidosis: Secondary to polysubstance abuse, improving with IV fluids - Continue to monitor Hypertension: Noted soft blood pressure on Precedex - Continue to monitor COPD: -Continue nebs -Trial Symbicort (given history of osteoporosis will try to minimize IV or oral steroids) -Counseled to quit smoking/crack Active smoker: -Counseled to quit -Nicotine patch offered DVT prophylaxis: Lovenox Advanced Care Planning ( Z71.89 ) Above assessment and plan discussed at length with patient, patient expressed full understanding. Questions and concerns addressed I spent 1 minutes discussing the advance care planning. Advanced Directive Maker: PT Level of comfort: N/A Code Status: Full Tobacco user (Z71.6) Patient counseled at length and Pt expressed full understanding, Time discussed 3 minutes [place] [employer] was verified Disposition: Admit ICU T [facility] Notes Date/Time Note Provider Source 2024-07-23 13:55:00 Pt requesting to leave AMA. ERP notified. Pt counseled to remain, risks of leaving AMA including discussed with pt. Pt continued to decline further ER evaluation at this time. AMA papers signed, witnessed, and placed on patient's chart. Pt left ambulatory, No ataxia noted, GCS 15, A&Ox4. T [facility] 2024-07-23 11:12:45 Pt to ED Via POV CO chest pain and SOB. Recently admitted for pneumonia and "intestinal infection", but left early due to personal conflicts. Doctor recommended not going to work, but pt reports going to work , Thursday, and was unable to work today due to the worsening CP and SOB. Pt states the CP has radiated down his R arm. Hx of COPD with PRN O2 use at home. Briseida Sears RN [facility] 2024-07-20 15:47:10 Patient called me into the room at 1500 with a panicked look in his face said he had to leave to go take care of his . Explained that his heart rate was still having out of control moments and this would not be a good idea. Went over his resource options of possible other family members who could help his , but patent gave excuses. Got Dr Marks to also explain the dangers and that he would have to leave [place]. Patient chose to leave [place], paperwork was signed. Patient was polite and very thankful about the care received. Rosa Whitt RN [facility] 2024-07-20 00:11:46 Problem: Falls, Risk of Goal: Absence of falls Outcome: Progressing as expected Problem: Discharge Planning Goal: Adequate for discharge Outcome: Progressing as expected Goal: Effective communication Outcome: Progressing as expected Problem: Fluid Volume - Imbalanced Goal: Absence of signs and symptoms of imbalanced fluid volume Outcome: Progressing as expected Problem: Infection, Risk of or Actual Goal: Absence of infection Outcome: Progressing as expected Problem: Mental Status - Impaired, Risk of Goal: Mental status restored to baseline Outcome: Progressing as expected Goal: Absence of physical injury Outcome: Progressing as expected Problem: Nutrition Deficit Goal: Adequate nutritional intake Outcome: Progressing as expected Problem: Pain Goal: Control of pain at or below patient's documented comfort goal Outcome: Progressing as expected Goal: Reduction in pain sensation Outcome: Progressing as expected Problem: Respiratory Function - Impaired Goal: Able to cough effectively Outcome: Progressing as expected Goal: Adequate oxygenation Outcome: Progressing as expected Goal: Adequate work of breathing Outcome: Progressing as expected Goal: Patent airway Outcome: Progressing as expected Problem: Skin integrity Impaired (Risk or Actual) Goal: Prevention of new skin breakdown Outcome: Progressing as expected Problem: Tissue Perfusion - Altered, Risk of Goal: Hemodynamically stable Outcome: Progressing as expected Luis Bailey RN [facility] 2024-07-19 11:45:29 Problem: Falls, Risk of Goal: Absence of falls Outcome: Progressing as expected Problem: Discharge Planning Goal: Adequate for discharge Outcome: Progressing as expected Goal: Effective communication Outcome: Progressing as expected Problem: Fluid Volume - Imbalanced Goal: Absence of signs and symptoms of imbalanced fluid volume Outcome: Progressing as expected Problem: Infection, Risk of or Actual Goal: Absence of infection Outcome: Progressing as expected Problem: Mental Status - Impaired, Risk of Goal: Mental status restored to baseline Outcome: Progressing as expected Goal: Absence of physical injury Outcome: Progressing as expected Problem: Nutrition Deficit Goal: Adequate nutritional intake Outcome: Progressing as expected Problem: Pain Goal: Control of pain at or below patient's documented comfort goal Outcome: Progressing as expected Goal: Reduction in pain sensation Outcome: Progressing as expected Problem: Respiratory Function - Impaired Goal: Able to cough effectively Outcome: Progressing as expected Goal: Adequate oxygenation Outcome: Progressing as expected Goal: Adequate work of breathing Outcome: Progressing as expected Goal: Patent airway Outcome: Progressing as expected Problem: Skin integrity Impaired (Risk or Actual) Goal: Prevention of new skin breakdown Outcome: Progressing as expected Problem: Tissue Perfusion - Altered, Risk of Goal: Hemodynamically stable Outcome: Progressing as expected T [facility] 2024-07-18 20:28:17 Problem: Falls, Risk of Goal: Absence of falls Outcome: Progressing as expected Problem: Discharge Planning Goal: Adequate for discharge Outcome: Progressing as expected Goal: Effective communication Outcome: Progressing as expected Problem: Fluid Volume - Imbalanced Goal: Absence of signs and symptoms of imbalanced fluid volume Outcome: Progressing as expected Problem: Infection, Risk of or Actual Goal: Absence of infection Outcome: Progressing as expected Problem: Mental Status - Impaired, Risk of Goal: Mental status restored to baseline Outcome: Progressing as expected Goal: Absence of physical injury Outcome: Progressing as expected Problem: Nutrition Deficit Goal: Adequate nutritional intake Outcome: Progressing as expected Problem: Pain Goal: Control of pain at or below patient's documented comfort goal Outcome: Progressing as expected Goal: Reduction in pain sensation Outcome: Progressing as expected Problem: Respiratory Function - Impaired Goal: Able to cough effectively Outcome: Progressing as expected Goal: Adequate oxygenation Outcome: Progressing as expected Goal: Adequate work of breathing Outcome: Progressing as expected Goal: Patent airway Outcome: Progressing as expected Problem: Skin integrity Impaired (Risk or Actual) Goal: Prevention of new skin breakdown Outcome: Progressing as expected Problem: Tissue Perfusion - Altered, Risk of Goal: Hemodynamically stable Outcome: Progressing as expected ERT Isabela Mishra RN [facility] 2024-07-18 18:12:01 Problem: Falls, Risk of Goal: Absence of falls Outcome: Progressing as expected Problem: Discharge Planning Goal: Adequate for discharge Outcome: Progressing as expected Goal: Effective communication Outcome: Progressing as expected Problem: Fluid Volume - Imbalanced Goal: Absence of signs and symptoms of imbalanced fluid volume Outcome: Progressing as expected Problem: Infection, Risk of or Actual Goal: Absence of infection Outcome: Progressing as expected Problem: Mental Status - Impaired, Risk of Goal: Mental status restored to baseline Outcome: Progressing as expected Goal: Absence of physical injury Outcome: Progressing as expected Problem: Nutrition Deficit Goal: Adequate nutritional intake Outcome: Progressing as expected Problem: Pain Goal: Control of pain at or below patient's documented comfort goal Outcome: Progressing as expected Goal: Reduction in pain sensation Outcome: Progressing as expected Problem: Respiratory Function - Impaired Goal: Able to cough effectively Outcome: Progressing as expected Goal: Adequate oxygenation Outcome: Progressing as expected Goal: Adequate work of breathing Outcome: Progressing as expected Goal: Patent airway Outcome: Progressing as expected Problem: Skin integrity Impaired (Risk or Actual) Goal: Prevention of new skin breakdown Outcome: Progressing as expected Problem: Tissue Perfusion - Altered, Risk of Goal: Hemodynamically stable Outcome: Progressing as expected ERT Joni Bailey RN [facility] 2024-07-18 09:22:44 Patient admitted to IMU for diagnosis of COPD, right lower lobe PNA, and alcohol dependence and withdrawal. Patient agrees to admission, discussed plan of care with patient. Patient is awake, alert, oriented, resp reg unlabored, color appropriate for race, PIVs intact with NS infusing. No adverse reaction to medications administered while in ED. Belongings with patient to unit. HA Canela RN [facility] 2024-07-18 09:22:11 Nurse Report Report given to BRIGETTE Quinones. Chief complaint, assessment findings, and orders reviewed. Plan of care discussed with both nurses. Patient verbalized understanding for admission. Raquel M Canela, RN [facility] 2024-07-18 08:25:19 Patient states he last did cocaine 2 days ago and has been drinking since he was 3 years old. [facility] 2024-07-18 08:24:09 Patient provided urinal and informed that a urine sample is needed. [facility] 2024-07-18 07:12:28 Associated Order(s): EKG-12 Lead ROUTINE ONCE; Critical Care Pre-Procedure Diagnose(s): Dyspnea, unspecified type Post-Procedure Diagnose(s): Dyspnea, unspecified type [facility] ED Transfer of Care Note. Off-going Physician:Maynor Time of Transfer of Care: 7:12 AM Summary: Randy Grimm is a 54 year old male presenting with chief complaint of chest pain, dyspnea, cocaine abuse. Increased dyspnea over baseline. (+) cough. Non-focal chest tightness. Has supplemental oxygen supply at home that he uses PRN at baseline, but has used continuously the last couple of days. Increased albuterol use. (+) nausea with emesis. Reports heavy alcohol use recently. Also told Dr Mcguire about recent cocaine use. Exam notable for tachycardia. Couple word sentences. Nominal expiratory wheezing. Mild hand tremors. Attempting to vomit. Tachycardia in 130s. Pending prior to disposition: Labs, Imaging, and Reevaluation Current interventions: Medications proMETHazine (PHENERGAN) 12.5 mg in NS 50 mL IV piggyback (CNR) (has no administration in time range) NaCl 0.9% (NS) bolus infusion 1,000 mL (has no administration in time range) enoxaparin (LOVENOX) injection 40 mg (has no administration in time range) oxazepam (SERAX) capsule 15 mg (has no administration in time range) Followed by oxazepam (SERAX) capsule 15 mg (has no administration in time range) Followed by oxazepam (SERAX) capsule 15 mg (has no administration in time range) oxazepam (SERAX) capsule 15 mg (has no administration in time range) foLIC acid (FOLATE) tablet 1 mg (has no administration in time range) thiamine mononitrate (VITAMIN B-1 (MONONITRATE)) tablet 100 mg (has no administration in time range) NaCl 0.9% (NS) bolus infusion 1,000 mL (1,000 mL IV Infusion New Bag 07/18/24736) ondansetron (ZOFRAN (PF)) injection 8 mg (8 mg Slow IV Push Given 07/18/24736) famotidine (PEPCID (PF)) injection 20 mg (20 mg Slow IV Push Given 07/18/24736) aspirin tablet 325 mg (325 mg Oral Given 07/18/24736) LORazepam (ATIVAN) injection 1 mg (1 mg Slow IV Push Given 07/18/24745) ipratropium-albuteroL (DUONEB) 0.5 mg-3 mg(2.5 mg base)/3 mL nebulizer solution 3 mL (3 mL Inhalation Given 07/18/24746) cefTRIAXone (ROCEPHIN) 1,000 mg in NaCl 0.9% (NS) 100 mL MINI-BAG (1,000 mg IV Piggyback New Bag 07/18/24800) methylprednisolone sod succ (SOLU-MEDROL) injection 125 mg (125 mg Intravenous Given 07/18/24811) Results: Labs Reviewed CBC WITH DIFF - Abnormal; Notable for the following components: Result Value WBC 14.72 (*) RBC 3.56 (*) HGB 11.3 (*) HCT 34.9 (*) MCV 98.0 (*) RDW-SD 58.6 (*) RDW-CV 16.3 (*) MPV 9.0 (*) GRAN MAT x10 3 (ANC) 11.29 (*) IMM GRAN x10 3 0.12 (*) EOS x10 3 <0.03 (*) All other components within normal limits COMP. METABOLIC PANEL (69242) - Abnormal; Notable for the following components: CO2 TOTAL 20 (*) AGAP 18 (*) GLUCOSE 123 (*) CREATININE 0.59 (*) All other components within normal limits LACTIC ACID WHOLE BLOOD - Abnormal; Notable for the following components: LACTIC ACID 6.23 (*) All other components within normal limits TROPONIN I - Normal Narrative: Reference (Normal) Range (defined by the 99th [...] results relative to patient's use of biotin. N-TERMINAL PRO-BNP - Normal INFLUENZA A/B RSV COVID NAAT - Normal ETHANOL Narrative: <10 Negative 50-100 Toxic >100 Depression of RESOLUTION EXPERT >400 Fatalities Reported URINE DRUG (IMMUNOASSAY) - COMPREHENSIVE DRUG SCREEN W/O REFLEX BLOOD CULTURE SCREEN BLOOD CULTURE SCREEN MRSA / MSSA SCREEN BY PCR, [facility] ONLY COVID INTERPRETATION XR CHEST 1 VW Final Result Stable right lower lobe patchy infiltrate. There are no effusions. The left lung is clear. RL: 5252 THORAX WO CONTRAST (Results Pending) Procedures: EKG-12 Lead ROUTINE ONCE Date/Time: 07/18/2024 7:13 AM Performed by: Shay Stinson MD Authorized by: Blu Mcguire MD ECG interpreted by ED Physician in the absence of a tooling mechanic: yes Previous ECG: Previous ECG: Compared to current Comparison ECG info: Compared to EKG of 02/10/2024 no significant changes Rate: ECG rate: 107 ECG rate assessment: tachycardic Rhythm: Rhythm: sinus rhythm Ectopy: Ectopy: none QRS: QRS axis: 71. QRS conduction: RBBB ST segments: ST segments: Non-specific T waves: T waves: non-specific Comments: Qtc 459 Critical Care Performed by: Shay Stinson MD Authorized by: Shay Stinson MD Critical care provider statement: Critical care time (minutes): 35 Critical care time was exclusive of: Separately billable procedures and treating other patients Critical care was necessary to treat or prevent imminent or life-threatening deterioration of the following conditions: Cardiac failure, circulatory failure, respiratory failure, sepsis, shock, renal failure and dehydration Critical care was time spent personally by me on the following activities: Development of treatment plan with patient or surrogate, discussions with consultants, evaluation of patient's response to treatment, examination of patient, obtaining history from patient or surrogate, ordering and performing treatments and interventions, ordering and review of laboratory studies, ordering and review of radiographic studies, pulse oximetry, re-evaluation of patient's condition and review of old charts I assumed direction of critical care for this patient from another provider in my specialty: yes Care discussed with: admitting provider Additional Notes: Diagnosis/Impression as of 07/18/24 0856 Dyspnea, unspecified type Community acquired pneumonia of right lower lobe of lung Nausea and vomiting, unspecified vomiting type Alcohol dependence with unspecified alcohol-induced disorder Chronic obstructive pulmonary disease, unspecified COPD type Elevated lactic acid level Alcohol withdrawal, uncomplicated Medical Decision Making Primary impression: community acquired pneumonia - right lower lobe Secondary impression: elevated lactic acid; persistent tachycardia, intractable nausea / vomiting, alcohol dependence, early alcohol withdrawal Differential Diagnoses, including but not limited to: electrolyte / glucose abnl, anemia, NAVIN, arrhythmia, acute coronary event Problems Addressed: Alcohol dependence with unspecified alcohol-induced disorder: chronic illness or injury Alcohol withdrawal, uncomplicated: acute illness or injury Chronic obstructive pulmonary disease, unspecified COPD type: chronic illness or injury Community acquired pneumonia of right lower lobe of lung: acute illness or injury Dyspnea, unspecified type: acute illness or injury Elevated lactic acid level: acute illness or injury Nausea and vomiting, unspecified vomiting type: acute illness or injury Amount and/or Complexity of Data Reviewed Independent Historian: Details: self Labs: ordered. Decision-making details documented in ED Course. Radiology: ordered. Decision-making details documented in ED Course. ECG/medicine tests: ordered and independent interpretation performed. Decision-making details documented in ED Course. Discussion of management or test interpretation with external provider(s): 1. Case discussed with Hospitalist including presentation, exam, findings, plan. Will evaluate and continue care in Hospital Risk OTC drugs. Prescription drug management. Parenteral controlled substances. Decision regarding hospitalization. Risk Details: Pneumonia noted, RLL. Pneumonia severity index 66. Low grade temp, 99.5. WBC 15. Tachycardia to 130s. Lactic 6. Possible sepsis. Intractable nausea with vomiting. Alcohol dependence. ETOH 324 last night, 91 this AM. Has tremors. Controlled by ativan in ED. Sepsis bundle initiated. Will benefit from further evaluation and treatment in hospital today. Findings and plan discussed with patient. Meets AdmissionCare INPT criteria. AdmissionCare Guideline: Pneumonia - INPT, Inpatient Based on the indications selected for the patient, the bed status of Inpatient was determined to be MET The following indications were selected as present at the time of evaluation of the patient: - Clinical Indications for Admission to Inpatient Care - Admission is indicated for 1 or more of the following: - Hemodynamic instability, as indicated by 1 or more of the following: - Vital sign abnormality not readily corrected by appropriate treatment, as indicated by 1 or more of the following: - Tachycardia that persists despite appropriate treatment (eg, volume repletion, treatment of pain, treatment of underlying cause) - Wjyyqybk-cbdb-kwkfbmki or rtue-kbox-yiensifd patient (Pneumonia Severity Index class IV or V, or CURB-65 score of 3 or greater) PSI CalculatorCURB-65 Calculator AdmissionCare documentation entered by: Shay Stinson [facility] [place] [employer], 28th edition, Copyright ? 2023 [facility] [place] [facility] All Rights Reserved. [id number] Disposition: Admitted to IMU Social Determinants of Health: None ED Disposition ED Disposition Admit - IMCU Condition Stable Comment -- T [facility] 2024-07-18 06:21:14 Patient provided urinal for urine sample. [facility] 2024-07-18 06:05:31 Patient arrived ambulatory to ED c/o SOB that has worsened since last here. Patient states smoking cigarettes and ETOH on board. Patient states using his home O2 all night tonight. HA Gomez RN [facility] 2024-07-18 06:01:00 EMERGENCY DEPARTMENT ENCOUNTER [facility] Patient Name: Randy Grimm Date of : 1970 54 year old Exam Room:TR8/TR8 Primary Care Physician: Adrianna Michaels [facility] Patient Escorted by: Self [9] Mode of Arrival: Personal means [1] EMS Treatment Prior to ED Arrival: REHABILITATION SPECIALIST treatment: Medication (comment) REHABILITATION SPECIALIST treatment comments: BC powder ED Events Date/Time Event User Comments 07/18/24 0608 Medical Screening Begins BLU MCGUIRE MD -- 07/18/24 0608 First Provider Evaluation BLU MCGUIRE MD -- Chief Complaint Chief Complaint Patient presents with Shortness of Breath ED Triage Notes Sreedhar Gomez RN 07/18/2024 06:06 Patient arrived ambulatory to ED c/o SOB that has worsened since last here. Patient states smoking cigarettes and ETOH on board. Patient states using his home O2 all night tonight. HPI History provided by: Patient Shortness of Breath Severity: Moderate Onset quality: Gradual Timing: Constant Chronicity: New Context comment: Patients notes he recently used cocaine Relieved by: Nothing Worsened by: Nothing Associated symptoms: no abdominal pain, no chest pain, no cough, no fever, no headaches, no vomiting and no wheezing Past Medical History / Immunizations Past Medical History: Diagnosis Date Alcohol abuse Alcohol withdrawal COPD (chronic obstructive pulmonary disease) Hypertension Tobacco abuse Tetanus received in last 5 years: Unknown Past Surgical History No past surgical history on file. Allergies Allergies Allergen Reactions Lisinopril Anaphylaxis Social History Tobacco Use Every Day Smokeless Tobacco: Current user of smokeless tobacco. Comments: trying to quit Alcohol Use Yes; 30.0 standard drinks of alcohol per week; 30 Cans of beer. Drug Use No. Review of Systems Review of Systems Constitutional: Negative. Negative for chills, fatigue, fever and unexpected weight change. HENT: Negative. Eyes: Negative. Negative for discharge and itching. Respiratory: Positive for shortness of breath. Negative for cough, chest tightness and wheezing. Cardiovascular: Negative. Negative for chest pain and palpitations. Gastrointestinal: Negative. Negative for abdominal distention, abdominal pain, nausea and vomiting. Genitourinary: Negative. Negative for dysuria, urgency, frequency and flank pain. Musculoskeletal: Negative. Skin: Negative. Negative for color change, pallor and wound. Neurological: Negative. Negative for dizziness, syncope, light-headedness and headaches. Psychiatric/Behavioral: Negative. Negative for agitation and behavioral problems. All other systems reviewed and are negative. Endocrine: Endocrine negative Physical Exam ED Triage Vitals [07/18/24 0606] Weight 123.8 kg (273 lb) Actual or estimated Estimated by patient/family report Height 1.626 m (5' 4") BP (!) 185/95 Pulse 127 Resp 15 Temp 37.5 ?C (99.5 ?F) Temp src SpO2 94 % Measured on Room air Physical Exam Vitals reviewed. Constitutional: Appearance: He is well-developed. HENT: Head: Normocephalic and atraumatic. Nose: Nose normal. Eyes: Conjunctiva/sclera: Conjunctivae normal. Neck: Trachea: No tracheal deviation. Cardiovascular: Rate and Rhythm: Regular rhythm. Tachycardia present. Heart sounds: Normal heart sounds. No murmur heard. No friction rub. Pulmonary: Effort: Pulmonary effort is normal. No tachypnea, bradypnea, accessory muscle usage or respiratory distress. Breath sounds: No stridor. No rales. Abdominal: General: Bowel sounds are normal. There is no distension. Palpations: Abdomen is soft. Tenderness: There is no abdominal tenderness. There is no guarding or rebound. Musculoskeletal: General: Normal range of motion. Cervical back: Normal range of motion and neck supple. Skin: General: Skin is warm and dry. Neurological: Mental Status: He is alert and oriented to person, place, and time. Cranial Nerves: No cranial nerve deficit. Sensory: No sensory deficit. Psychiatric: Behavior: Behavior normal. Labs Lab Results CBC WITH DIFF - Abnormal Result Value Ref Range WBC 14.72 (*) 4.20 - 10.70 10*3/?L RBC 3.56 (*) 4.26 - 5.52 10*6/?L HGB 11.3 (*) 12.2 - 16.4 g/dL HCT 34.9 (*) 38.4 - 49.3 % MCV 98.0 (*) 81.7 - 95.6 fL MCH 31.7 26.1 - 32.7 pg MCHC 32.4 31.2 - 35.0 g/dL RDW-SD 58.6 (*) 38.5 - 51.6 fL RDW-CV 16.3 (*) 12.1 - 15.4 % PLT 229 150 - 328 10*3/?L MPV 9.0 (*) 9.8 - 13.0 fL NRBC/100 WBC 0.0 0.0 - 10.0 /100 WBCs NRBC x10 3 <0.01 10*3/?L GRAN MAT (NEUT) % 76.7 % IMM GRAN % 0.80 % LYMPH % 15.8 % MONO % 6.6 % EOS % 0.0 % BASO % 0.1 % GRAN MAT x10 3 (ANC) 11.29 (*) 1.99 - 6.95 10*3/uL IMM GRAN x10 3 0.12 (*) 0.00 - 0.06 10*3/uL LYMPH x10 3 2.32 1.09 - 3.23 10*3/uL MONO x10 3 0.97 0.36 - 1.02 10*3/uL EOS x10 3 <0.03 (*) 0.06 - 0.53 10*3/uL BASO x10 3 <0.03 0.01 - 0.09 10*3/uL ETHANOL ALCOHOL 91 mg/dL COMP. METABOLIC PANEL (53295) TROPONIN I N-TERMINAL PRO-BNP URINE DRUG (IMMUNOASSAY) - COMPREHENSIVE DRUG SCREEN W/O REFLEX Imaging XR CHEST 1 VW Final Result ORDERING PHYSICIAN: BLU MCGUIRE CLINICAL HISTORY: Shortness of breath TECHNIQUE: Frontal view of chest COMPARISON: 07/17/2024 FINDINGS: The cardiac silhouette is mildly enlarged, stable. Stable right lower lobe patchy infiltrate. There are no effusions. The left lung is clear. Osseous structures are normal. IMPRESSION Stable right lower lobe patchy infiltrate. There are no effusions. The left lung is clear. RL: 5252 Orders and Treatments Orders Placed This Encounter Procedures XR CHEST 1 VW CBC WITH DIFF COMP. METABOLIC PANEL (96616) TROPONIN I N-TERMINAL PRO-BNP URINE DRUG (IMMUNOASSAY) - COMPREHENSIVE DRUG SCREEN W/O REFLEX ETHANOL No orders of the defined types were placed in this encounter. Procedures EKG Time 0610 Rate 107 Sinus tachycadia Incomplete RBBB Non specific ST T changes Abnormal EKG [facility] Patient was evaluated for an emergency medical condition related to Shortness of Breath . Diagnoses considered but not limited to: Drug use COPD exacerbation Labs:were ordered, and resulted, any relevant abnormalities were considered. Abnormal Labs Reviewed CBC WITH DIFF - Abnormal; Notable for the following components: Result Value WBC 14.72 (*) RBC 3.56 (*) HGB 11.3 (*) HCT 34.9 (*) MCV 98.0 (*) RDW-SD 58.6 (*) RDW-CV 16.3 (*) MPV 9.0 (*) GRAN MAT x10 3 (ANC) 11.29 (*) IMM GRAN x10 3 0.12 (*) EOS x10 3 <0.03 (*) All other components within normal limits Imaging:This is a teaching institution and preliminary studies are read by physicians in training. A final read by a radiologist will be confirmatory of preliminary studies or may include addenda. A reasonable attempt will be made to contact the patient or family to communicate findings if necessary. Diagnosis/Impression as of 07/18/24 0852 Dyspnea, unspecified type Community acquired pneumonia of right lower lobe of lung Nausea and vomiting, unspecified vomiting type Alcohol dependence with unspecified alcohol-induced disorder Chronic obstructive pulmonary disease, unspecified COPD type Elevated lactic acid level Alcohol withdrawal, uncomplicated Medical Decision Making Problems Addressed: Dyspnea, unspecified type: acute illness or injury Amount and/or Complexity of Data Reviewed Labs: ordered. Decision-making details documented in ED Course. Radiology: ordered and independent interpretation performed. Decision-making details documented in ED Course. ECG/medicine tests: ordered and independent interpretation performed. Decision-making details documented in ED Course. Pulse Oximetry: is not hypoxic. Interpreted. Reassessment:unchanged Communication with product support consultant: None. Limitations to patient care and compliance: none. Plan & Summary: Randy Grimm is a 54 year old male presenting for complaint(s) listed within the note. . Disposition pending Pt endorsed to Dr. Stinson. History, physical exam findings, results of visit, diagnosis, medication regimens and plan of future care have been considered. Additional MDM may be found in the ED course. Vital signs were rechecked before final disposition and determined to be expected for patient's clinical condition.. Disposition & Follow Up ED Disposition None Patient's Medications START taking these medications No [...] times daily as needed for Rectal itching/pain. MUPIROCIN 2 % OINTMENT Apply to area(s) 3 (three) times daily. TRIAMTERENE-HYDROCHLOROTHIAZI D 37.5-25 MG TABLET Take 1 tablet by mouth daily. START taking Modified Medications as Prescribed No medications on file STOP taking these medications No medications on file Blu Mcguire Jr., MD Clinical Crematory Operator [facility] Emergency Department [employer] is used frequently and may produce errors. Promptly contact for obvious discrepancies. Blu Mcguire MD 07/18/24704 T [employer] EMERGENCY PHYSICIAN STAFF [facility] 2024-07-18 06:01:00 AdmissionCare Guideline: Pneumonia - INPT, Inpatient Based on the indications selected for the patient, the bed status of Inpatient was determined to be MET The following indications were selected as present at the time of evaluation of the patient: - Clinical Indications for Admission to Inpatient Care - Admission is indicated for 1 or more of the following: - Hemodynamic instability, as indicated by 1 or more of the following: - Vital sign abnormality not readily corrected by appropriate treatment, as indicated by 1 or more of the following: - Tachycardia that persists despite appropriate treatment (eg, volume repletion, treatment of pain, treatment of underlying cause) - Runjnoob-nsuf-bdyrdblo or jmhf-vboh-vqtsdlsi patient (Pneumonia Severity Index class IV or V, or CURB-65 score of 3 or greater) PSI CalculatorCURB-65 Calculator AdmissionCare documentation entered by: Shay Stinson [facility], 28 edition, Copyright ? 2023 [facility] [place] [facility] All Rights Reserved. [id number]:00 [facility] 2024-07-17 20:39:59 Pt took monitors off himself and stormed out of ED after being told no pain medications were ordered at this time. Walked out with IV still in arm. [facility] PD notified, pt unable to be located by officer. PD called for welfare check (pt [place] resident) Arlene Fitch RN [facility] 2024-07-17 19:50:53 Patient arrived ambulatory to ED c/o SOB that started two days ago. Patient states "smoking $800 of crack cocaine the day before." Patient also states taking multiple BC powders. 91% RA. Placed on 4L NC. Sreedhar Gomez RN [facility] 2024-07-17 19:39:00 Images from the original note were not included. EMERGENCY DEPARTMENT ENCOUNTER [facility] Patient Name: Randy Grimm Date of : 1970 54 year old Exam Room:TR8/TR8 Primary Care Physician: Adrianna Michaels [facility] Patient Escorted by: Self [9] Mode of Arrival: Personal means [1] EMS Treatment Prior to ED Arrival: REHABILITATION SPECIALIST treatment: Medication (comment) REHABILITATION SPECIALIST treatment comments: See triage note ED Events Date/Time Event User Comments 07/17/241949 Medical Screening Begins BLU MCGUIRE MD -- 07/17/241949 First Provider Evaluation BLU MCGUIRE MD -- Chief Complaint Chief Complaint Patient presents with Shortness of Breath ED Triage Notes Sreedhar Gomez RN 07/17/2024 19:52 Patient arrived ambulatory to ED c/o SOB that started two days ago. Patient states "smoking $800 of crack cocaine the day before." Patient also states taking multiple BC powders. 91% RA. Placed on 4L NC. HPI History provided by: Patient Shortness of Breath Severity: Moderate Onset quality: Gradual Timing: Constant Progression: Worsening Chronicity: New Relieved by: Nothing Associated symptoms: wheezing Associated symptoms: no abdominal pain, no chest pain, no cough, no fever, no headaches and no vomiting Past Medical History / Immunizations Past Medical History: Diagnosis Date Alcohol abuse Alcohol withdrawal COPD (chronic obstructive pulmonary disease) Hypertension Tobacco abuse Tetanus received in last 5 years: Unknown Past Surgical History No past surgical history on file. Allergies Allergies Allergen Reactions Lisinopril Anaphylaxis Social History Tobacco Use Every Day Smokeless Tobacco: Current user of smokeless tobacco. Comments: trying to quit Alcohol Use Yes; 30.0 standard drinks of alcohol per week; 30 Cans of beer. Drug Use No. Review of Systems Review of Systems Constitutional: Negative. Negative for chills, fatigue, fever and unexpected weight change. HENT: Negative. Eyes: Negative. Negative for discharge and itching. Respiratory: Positive for shortness of breath and wheezing. Negative for cough and chest tightness. Cardiovascular: Negative. Negative for chest pain and palpitations. Gastrointestinal: Negative. Negative for abdominal distention, abdominal pain, nausea and vomiting. Genitourinary: Negative. Negative for dysuria, urgency, frequency and flank pain. Musculoskeletal: Negative. Skin: Negative. Negative for color change, pallor and wound. Neurological: Negative. Negative for dizziness, syncope, light-headedness and headaches. Psychiatric/Behavioral: Negative. Negative for agitation and behavioral problems. All other systems reviewed and are negative. Endocrine: Endocrine negative Physical Exam ED Triage Vitals [07/17/241951] Weight 122.9 kg (271 lb) Actual or estimated Estimated by patient/family report Height 1.626 m (5' 4") BP (!) 149/96 Pulse 122 Resp 19 Temp 37.3 ?C (99.2 ?F) Temp source Oral SpO2 96 % Measured on Room air Physical Exam Vitals reviewed. Constitutional: Appearance: He is well-developed. HENT: Head: Normocephalic and atraumatic. Eyes: Conjunctiva/sclera: Conjunctivae normal. Cardiovascular: Rate and Rhythm: Normal rate and regular rhythm. Heart sounds: Normal heart sounds. Pulmonary: Effort: Pulmonary effort is normal. No respiratory distress. Breath sounds: No stridor. Examination of the right-upper field reveals wheezing. Examination of the left-upper field reveals wheezing. Examination of the right-middle field reveals wheezing. Examination of the left-middle field reveals wheezing. Examination of the right-lower field reveals wheezing. Examination of the left-lower field reveals wheezing. Wheezing present. No rales. Abdominal: General: Bowel sounds are normal. There is no distension. Palpations: Abdomen is soft. Tenderness: There is no abdominal tenderness. There is no guarding or rebound. Musculoskeletal: General: Tenderness present. Right elbow: Deformity present. Decreased range of motion. Tenderness present. Arms: Skin: General: Skin is warm and dry. Neurological: Mental Status: He is alert and oriented to person, place, and time. Cranial Nerves: No cranial nerve deficit. Sensory: No sensory deficit. Psychiatric: Behavior: Behavior normal. Labs Lab Results CBC WITH DIFF - Abnormal Result Value Ref Range WBC 15.58 (*) 4.20 - 10.70 10*3/?L RBC 3.64 (*) 4.26 - 5.52 10*6/?L HGB 11.7 (*) 12.2 - 16.4 g/dL HCT 35.7 (*) 38.4 - 49.3 % MCV 98.1 (*) 81.7 - 95.6 fL MCH 32.1 26.1 - 32.7 pg MCHC 32.8 31.2 - 35.0 g/dL RDW-SD 57.3 (*) 38.5 - 51.6 fL RDW-CV 16.0 (*) 12.1 - 15.4 % PLT 266 150 - 328 10*3/?L MPV 9.0 (*) 9.8 - 13.0 fL NRBC/100 WBC 0.0 0.0 - 10.0 /100 WBCs NRBC x10 3 <0.01 10*3/?L GRAN MAT (NEUT) % 83.1 % IMM GRAN % 0.70 % LYMPH % 9.9 % MONO % 6.1 % EOS % 0.1 % BASO % 0.1 % GRAN MAT x10 3 (ANC) 12.95 (*) 1.99 - 6.95 10*3/uL IMM GRAN x10 3 0.11 (*) 0.00 - 0.06 10*3/uL LYMPH x10 3 1.54 1.09 - 3.23 10*3/uL MONO x10 3 0.95 0.36 - 1.02 10*3/uL EOS x10 3 <0.03 (*) 0.06 - 0.53 10*3/uL BASO x10 3 <0.03 0.01 - 0.09 10*3/uL COMP. METABOLIC PANEL (53337) - Abnormal NA 138 135 - 145 mmol/L K 3.8 3.5 - 5.0 mmol/L CL 101 98 - 108 mmol/L CO2 TOTAL 18 (*) 23 - 31 mmol/L AGAP 19 (*) 2 - 16 BUN 8 7 - 23 mg/dL GLUCOSE 163 (*) 70 - 110 mg/dL CREATININE 0.61 0.60 - 1.25 mg/dL TOTAL BILI 0.4 0.1 - 1.1 mg/dL CALCIUM 8.6 8.6 - 10.6 mg/dL T PROTEIN 7.5 6.3 - 8.2 g/dL ALBUMIN 4.7 3.5 - 5.0 g/dL ALK PHOS 69 34 - 122 U/L ALTv 22 5 - 50 U/L AST(SGOT) 31 13 - 40 U/L eGFR 112.7 mL/min/1.73m2 N-TERMINAL PRO-BNP - Abnormal NT-proBNP 166 <=125 pg/mL TROPONIN I - Normal TROPONIN I 0.005 <=0.034 ng/mL ETHANOL ALCOHOL 324 mg/dL URINE DRUG (IMMUNOASSAY) - COMPREHENSIVE DRUG SCREEN W/O REFLEX Imaging XR CHEST 1 VW Final Result EXAM: XR CHEST 1 VW HISTORY: dyspnea Ordering physician: BLU MCGUIRE COMPARISON: Chest x-ray from February 08, 2024. TECHNIQUE: Frontal chest x-ray. FINDINGS: Heart size is stable. Pulmonary vessels are normal. Mild infiltrate in the right lower lung is present. No pneumothorax or pleural effusion is detected. Mediastinal contour is normal. No free air is discerned. There is no displaced rib fracture. IMPRESSION Mild infiltrate in the right lower lung. RL: 7231 End of report. ELBOW 3+ VW RIGHT Preliminary Result EXAM: XR ELBOW 3+ VW RIGHT HISTORY: 54 years-old Male with right elbow pain COMPARISON: None. FINDINGS: Radiographs of the right elbow were obtained. No acute fractures or traumatic disc locations are visualized. The joint spaces are preserved and the alignment is anatomic. There is soft tissue swelling over the olecranon. IMPRESSION Soft tissue swelling without acute osseous abnormality. Preliminary Report Dictated by Resident: Chivo Whitt Orders and Treatments Orders Placed This Encounter Procedures XR CHEST 1 VW XR ELBOW 3+ VW RIGHT CBC WITH DIFF COMP. METABOLIC PANEL (20325) TROPONIN I N-TERMINAL PRO-BNP Ethanol URINE DRUG (IMMUNOASSAY) - COMPREHENSIVE DRUG SCREEN W/O REFLEX Orders Placed This Encounter Medications ipratropium-albuteroL (DUONEB) 0.5 mg-3 mg(2.5 mg base)/3 mL nebulizer solution 3 mL Procedures EKG Time 1958 Rate 109 Sinus tachycardia Leon normal Intervals normal No acute ischemia MDM Patient was evaluated for an emergency medical condition related to Shortness of Breath . Diagnoses considered but not limited to: Copd exacerbation Labs:were ordered, and resulted, any relevant abnormalities were considered. Abnormal Labs Reviewed CBC WITH DIFF - Abnormal; Notable for the following components: Result Value WBC 15.58 (*) RBC 3.64 (*) HGB 11.7 (*) HCT 35.7 (*) MCV 98.1 (*) RDW-SD 57.3 (*) RDW-CV 16.0 (*) MPV 9.0 (*) GRAN MAT x10 3 (ANC) 12.95 (*) IMM GRAN x10 3 0.11 (*) EOS x10 3 <0.03 (*) All other components within normal limits COMP. METABOLIC PANEL (64516) - Abnormal; Notable for the following components: CO2 TOTAL 18 (*) AGAP 19 (*) GLUCOSE 163 (*) All other components within normal limits N-TERMINAL PRO-BNP - Abnormal Narrative: Result Indeterminate-Consider causes of NT-proBNP elevation other than Heart failure such as acute coronary syndrome, pulmonary embolism, pulmonary hypertension, sepsis, stroke, and renal dysfunction. Imaging:This is a teaching institution and preliminary studies are read by physicians in training. A final read by a radiologist will be confirmatory of preliminary studies or may include addenda. A reasonable attempt will be made to contact the patient or family to communicate findings if necessary. Diagnosis/Impression as of 07/17/24 2144 Dyspnea, unspecified type Right elbow pain Medical Decision Making Amount and/or Complexity of Data Reviewed Labs: ordered. Decision-making details documented in ED Course. Radiology: ordered and independent interpretation performed. Decision-making details documented in ED Course. ECG/medicine tests: ordered and independent interpretation performed. Decision-making details documented in ED Course. Risk Prescription drug management. Pulse Oximetry: is not hypoxic. Interpreted. Reassessment:stable Communication with product support consultant: None. Limitations to patient care and compliance: none. Plan & Summary: Randy Grimm is a 54 year old male presenting for complaint(s) listed within the note. . AMA. The patient is clinically not intoxicated, free from distracting pain, appears to have intact insight, judgment and reason and in my medical opinion has the capacity to make decisions. The patient is also not under any duress to leave the hospital. In this scenario, it would be unjust to subject a patient to treatment against his/her will. I have voiced my concerns for the patient's health given that a full evaluation and treatment had not occurred. I have discussed the need for continued evaluation to determine if their symptoms are caused by a condition that present risk of or morbidity. Risks including but not limited to , permanent disability, prolonged hospitalization, prolonged illness, were discussed. I tried offering alternative options in hopes that the patient might be amenable to partial evaluation and treatment which would be medically beneficial to the patient, though the patient declined my options and insisted on leaving. Because I have been unable to convince the patient to stay, I answered all of their questions about their condition and asked them to return to the ED as soon as possible to complete their evaluation, especially if their symptoms worsen or do not improve. I emphasized that leaving against medical advice does not preclude returning here for further evaluation. I asked the patient to return if they change their mind about the further evaluation and treatment. I strongly encouraged the patient to return to this Emergency Department or any Emergency Department at any time, particularly with worsening symptoms. History, physical exam findings, results of visit, diagnosis, medication regimens and plan of future care have been considered. Additional MDM may be found in the ED course. Vital signs were rechecked before final disposition and determined to be expected for patient's clinical condition.. Disposition & Follow Up ED Disposition ED Disposition Elope - Before Dispo Condition -- Comment -- Patient's Medications START taking these medications No [...] times daily as needed for Rectal itching/pain. MUPIROCIN 2 % OINTMENT Apply to area(s) 3 (three) times daily. TRIAMTERENE-HYDROCHLOROTHIAZI D 37.5-25 MG TABLET Take 1 tablet by mouth daily. START taking Modified Medications as Prescribed No medications on file STOP taking these medications No medications on file Blu Mcguire Jr., MD Clinical Crematory Operator [facility] Emergency Department [employer] is used frequently and may produce errors. Promptly contact for obvious discrepancies. Blu Mcguire MD 07/17/242143 T [facility]24-[facility] 08:34:34 Patient here for a mass on his forehead, states it has been there for year and patient attempted to open it with a needle. Valentino Cage RNCleveland [facility] Mentor HospitalEumvjx2440-41-18 21:43:52 No answer in lobby. Angy Turner [place] 406314-04-10 21:42:10 Pt's blood pressure cuff and pulse ox found lying on chair. Called for patient in lobby 2 times, no answer. No one in lobby. Sierra Samaniego [place] 406314-04-10 21:41:09 Pt not in lobby or in room. No answer in lobby. [place] 518234-04-10 21:14:29 Pt not in FT01- and no answer in lobby. T [place] 518234-04-10 20:48:50 Pt arrives ambulatory to ED c/o SOB, right upper abdominal pain, and left leg and hip pain. Pt states that he has been on prednisone for about 5 yrs which had given him osteoporosis which is causing his leg pain. Reports hx of COPD, o2 is generally @ 91 he says. Leah Lizama [facility]Jvmjnc6019-13-41 21:37:56 Pt left AMA Kylie Foster [facility] HospitalDcrgvc8329-09-43 21:32:00 Patient leaving AMA after self removing [...] ambulatory with steady gait, appears in NAD [place] 847194-04-01 20:54:38 Pt states he uses O2 at home, portable O2 is broken [place] 847194-04-01 20:51:11 Pt ambulates with cane [place] 847194-04-01 20:43:13 CC: Pt arrives SOB after leaving [...] 3 BC powders and drank 3 beers." [facility] Leha King [facility] HospitalQyehuv2413-72-89 17:04:05 Patient walked to the nurses station [...] department with a steady gait. Allison Zhang [place] 406314-04-01 14:23:02 Pt ambulates with a cane Kylie Foster [facility] HospitalGkxfmh4729-10-56 14:13:15 Pt has taken 8-packets of BC [...] that helps." Face is flushed. Hali Aviles [place] 406314-03-07 06:16:25 Pt given printed and verbal discharge [...] to follow up with pcp and or tooling mechanic Advised to seek medical attention for new/prolonged/worsening of symptoms, No adverse reaction to meds given in ER noted upon discharge PIV d'cd, dressing to site, catheter in tact. Awake, alert oriented, resp reg unlabored, skin w/d, pt leaving in no apparent distress, [facility]2024-03-07 04:49:43 CC: "My COPD is acting [...] difficulty, amb with steady gait ON King RNCleveland [facility] Ment[facility] HospitalKkreqk9128-59-80 04:43:00 Associated Order(s): EKG-12 Lead ROUTINE ONCE Pre-Procedure Diagnose(s): Chest pain, unspecified type Post-Procedure Diagnose(s): Chest pain, unspecified type [facility] Emergency Department Note Patient Name: Randy Grimm Date of : 1970 53 year old male Treatment Room: MI1/[facility] Primary Care Physician: Adrianna Michaels Patient Escorted by: Family [5] Mode of Arrival: Personal means [1] EMS Treatment Prior to ED 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 METABOLIC PANEL (60206) - Abnormal Result Value Ref Range NA [...] 1 VW TROPONIN I COMP. METABOLIC PANEL (68521) LIPASE, SERUM CBC WITH DIFF N-Terminal Pro-Bnp [...] ED Physician in the absence of a tooling mechanic: yes Previous ECG: Previous ECG: Compared to [...] signed by: Jac Navarro MD 01/14/24 0600 [facility]2024-02-13 23:12:16 Pt given printed and verbal [...] with steady gait, in no apparent distress, [facility] Mary Magaña RNC[facility] Clinic [facility] HospitalQpbldo6113-13-83 21:41:55 Pt arrives ambulatory to ED reporting bleeding with stools and 10/10 abdominal pain. States he was here last night but had to leave before receiving results d/t having to work. Says the pain became worse so he came back in. [employer] TEND[employer] Leah Lizama [facility] HospitalNvtaze2441-49-57 21:31:00 Patient leaving AMA,discussed risks of leaving against medical advice, Dr. Hastings aware and notified of patient's decision. Patient encouraged to seek medical attention for any new/prolonged/worsening of symptoms and stressed importance of follow up with a medical provider as soon as possible. AMA form explained, patient signed form. IV d'cd, dressing to site. Patient leaving ambulatory with steady gait, appears in no distress. 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 Pt states " yall were wonderful but 3am come real early." [facility]2024-02-12 21:26:22 Pt asking to go outside and smoke, wants to go home and eat. Pt educated on risks of leaving AMA. Provider informed pt is in pain. [facility] Leah King [place] 406314-02-12 19:31:50 Pt arrived ambulatory with complaints of bright red rectal bleeding and generalized abdominal pain this afternoon. Pt states his stool was normal consistency but continuous bright red blood. Denies this happening before. 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 States he vomits all the time but not something new today. ON Esqueda [place] 34155-01-02 20:13:39 Pt requesting to leave AMA. ERP notified. Pt counseled to remain, risks of leaving AMA including discussed with pt. Pt continued to decline further ER evaluation at this time. AMA papers signed, witnessed, and placed on patient's chart. Pt left ambulatory. VS stable, no ataxia noted, GCS 15, A&Ox4. EGEE TENDER Briseida Medrano [facility] HospitalZdnjrc2429-10-34 19:30:29 Patient arrived to ED c/o SOB and COPD exacerbation. Symptoms started this morning. Patient wears 3L NC at home. Patient is a smoker. Patient states having the chills, diarrhea, and vomiting. States having sharp pains in chest from coughing. EGEE TENDER Sreedhar Gomez [facility]
--- NOTE | 2024-08-25 07:27 | ER ---
Nurse's Notes [facility] Name: Randy Briones Age: 54 yrs Sex: Male : 1970 Arrival Date: 08/25/2024 Time: 06:54 Bed Waiting Private MD: Diagnosis: Assessment: 08/25 07:07 Reassessment: called patient from lobby. No answer. Unable to locate patient. ER registration staff states that they saw pt walk outside with steady gait. Unable to locate pt outside of ER lobby. Dr. Girard notified. 07:23 Reassessment: Called from [facility] no answer. Unable to locate patient. ED Course: 06:58 Patient arrived in ED. gm2 07:03 Jazzy Girard MD is Attending Physician. gb1 Administered Medications: No medications were administered Outcome: 07:26 Patient left the ED. Signatures: Kiley Goldstein RN RN Jazzy Girard MD MD gb1 Bonnie Sylvester 2
== END 2024-08-25 07:26 | disposition left against medical advice (07) ==
LOC: ER 06:54
DX: Z02.9 Encounter for administrative examinations, unspecified (principal)

== ENCOUNTER 2024-09-20 20:17 | Emergency (ER) | payer OTHER ==
--- OUTSIDE RECORDS SUMMARY | 2024-09-20 20:22 | XMS REPORT | Continuity of Care Document ---
Author Name Unknown Address [address] [facility] [address] [place] [address] [facility] Address [address] [facility] [place] [address] Care Team Providers Care System Safety Manager Name Role Phone Juan Daniel [facility] Primary Care Physician YARY CAMP Attending Clinician Unavailable YARY CAMP Attending Clinician Unavailable Yary Camp NP Attending Clinician [phone] JULIEN MARKS Attending Clinician Unavailable Blu Mcguire MD Attending Clinician [phone] Shay Stinson MD Attending Clinician [phone] Julien Marks DO Attending Clinician [phone] BLU MCGUIRE Attending Clinician Unavailable BLU MCGUIRE Attending Clinician Unavailable WENDY BROWNLEE Attending Clinician UnaMYRNA Bernard Attending Clinician Unavailable DARIEN LOBO Attending Clinician Unavailable MINNA ORTA Attending Clinician Unavailab SHARATH Isbell Attending Clinician Unavailable TUNDE QUINTANILLA Attending Clinician Unavailable KEISHA DAVENPORT Attending Clinician Unauriah Davenport MD, Keisha Jackson Attending Clinician + Christina Victoria Sandrita Attending Clinician [phone] JAC NAVARRO Attending Clinician Unavailable Jac Navarro MD Attending Clinician [phone] CAILIN ROWE Attending Clinician Unavailab QUENTIN Boothe Attending Clinician Unavailable Quentin Hastings DO Attending Clinician [phone] CHRISTY HOLLIDAY Attending Clinician Unavailable Christy Holliday MD Attending Clinician [phone] MARIA ELENA CHAN Attending Clinicia n Unavailable DENISE SUNG Attending Clinician Unavailable KARLEY ADAMS Attending Clinician Unavailable JULIEN MARKS Admitting Clinician Unavailable Julien Marks DO Admitting Clinician [phone] BLU MCGUIRE Admitting Clinician Unavailable JAC NAVARRO Admitting Clinician Unavailable QUENTIN HASTINGS Admitting Clinician Unavailable CHRISTY HOLLIDAY Admitting Clinician Unavailable Payers Payer Name Policy Type Policy Number Effective Date Expirati on Date Source HIM [facility] O [id number] 2024 00:00:00 [facility] VINOD LEE COPAY FOCUS 9 [id number] 2024 00:00:00 [employer] [id number] 2023 00:00:00 [employer] 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MO IRONER HAND 94 ON 9 [id number] 2023 00:00:00 Problems Condition Name Condition Details Condition Category Status Onset Date Resolution Date Last Treatment Date Treating Clinician Comments Source Community acquired pneumonia of right lower lobe of lung Community acquired pneumonia of right lower lobe of lung Disease Active 07-18 00:00: 00 [facility] Acute exacerbati on of chronic obstructiv e pulmonary disease (COPD) Acute exacerbati on of chronic obstructiv e pulmonary disease (COPD) Disease Active 03-24 00:00: 00 [facility] Obesity (BMI 30-39.9) Obesity (BMI 30-39.9) Disease Active 03-24 00:00: 00 [facility] Allergies, Adverse Reactions, Alerts Allergy Name Allergy Type Status Severity Reaction(s) Onset Date Inactive Date Treating Clinician Comments Source Lisinopr il Propensi ty to adverse reaction s Active Anaphylaxis 03-24 00:00: 00 [facility] LISINOPR IL DRUG INGREDI Active Anaphylaxis 03-24 00:00: 00 [facility] Social History Social Habit Start Date Stop Date Quantity Comments Source History of tobacco use Smokes tobacco daily [facility] Alcoholic beverage intake 2024-07-23 00:00:00 2024-07-23 00:00:00 4.29 /d [facility] History of Social function 2024-07-19 00:00:00 2024-07-19 00:00:00 [facility] Tobacco use and exposure 2024-07-18 00:00:00 2024-07-18 00:00:00 User of smokeless tobacco [facility] Tobacco Comment 2024-07-18 00:00:00 2024-07-18 00:00:00 trying to quit [facility] Alcohol Comment 2024-07-18 00:00:00 2024-07-18 00:00:00 2 1/2 cases daily [facility] Alcohol intake 2024-02-08 00:00:00 2024-02-08 00:00:00 4.29 /d [facility] Exposure to SARS-CoV-2 (event) 2022-10-04 00:00:00 2022-10-14 10:25:00 Not sure [facility] Sex assigned at 1970 00:00:00 1970 00:00:00 [facility] Smoking Status Start Date Stop Date Source Smokes tobacco daily 2024-07-18 00:00:00 [facility] Medications Ordered Medication Name Filled Medication Name Start Date Stop Date Current Medication? Ordering Clinician Indication Dosage Frequency Signature (SIG) Comments Components Source ketorolac (TORADOL) injection 30 mg 07-23 19:30: 00 07-23 18:21 :00 No 30mg 30 mg, Slow IV Push, ONCE, 1 dose, On 07/23/24 at 1430, Routine [facility] pantoprazol e (PROTONIX) injection 40 mg 07-23 17:30: 00 07-23 17:03 :00 No 40mg 40 mg, Slow IV Push, ONCE, 1 dose, On 07/23/24 at 1230 [facility] ipratropium -albuteroL (DUONEB) 0.5 mg-3 mg(2.5 mg base)/3 mL nebulizer solution 3 mL 07-23 17:15: 00 07-23 17:26 :00 No 3mL 3 mL, Inhalation , ONCE NOW, 1 dose, On 07/23/24 at 1215, Routine [facility] methylpredn isolone sod succ (SOLU-MEDRO L) injection 125 mg 07-23 17:15: 00 07-23 17:01 :00 No 125mg 125 mg, Intravenou s, ONCE, 1 dose, On 07/23/24 at 1215, 2 mL [facility] NaCl 0.9% (NS) bolus infusion 1,000 mL 07-23 17:15: 00 07-23 17:30 :00 No 1000mL at 999 mL/hr, 1,000 mL, IV Infusion, ONCE, 1 dose, On 07/23/24 at 1215, LAURYN [facility] piperacilli n-tazobacta m (ZOSYN) 3.375 g in NaCl 0.9% (NS) 100 mL MINI-BAG 07-23 16:45: 00 07-23 17:40 :00 No 3.375g 3.375 g, IV Piggyback, ONCE, 1 dose, On 07/23/24 at 1145, Administer over 30 Minutes, 100 mL, Reason for Anti-Infec tive: Documented Infection, Documented Infection Site: Respirator y, Duration of Therapy: Once (ED) [facility] oxazepam (SERAX) capsule 15 mg 07-20 19:50: 52 07-21 19:59 :00 Yes 15mg 15 mg, Oral, Q12H TAPER, 2 doses, First dose on Thu07/20/24 at 1500, Last dose on Thu07/21/24 at 0300, Routine [facility] levalbutero l (XOPENEX) nebulizer solution 0.63 mg 07-20 19:00: 00 Yes .63mg 0.63 mg, Inhalation , TID, First dose on Thu07/20/24 at 1400, Until Discontinu ed, Routine [facility] spironolact one (ALDACTONE) tablet 25 mg 07-20 14:00: 00 Yes 25mg 25 mg, Oral, DAILY, First dose on Thu07/20/24 at 0900, Until Discontinu ed, [facility] Pot[facility] Bicarb-Citr ic Acid (EFFER-K) effervescen t tablet 40 mEq 07-20 13:00: 00 07-21 12:59 :00 Yes 40meq 40 mEq, Oral, BID, 2 doses, First dose on Thu07/20/24 at 0800, Last dose on Thu07/20/24 at 2000, Routine [facility] amLODIPine (NORVASC) tablet 10 mg 07-19 22:30: 00 Yes 10mg 10 mg, Oral, DAILY, First dose on Thu07/19/24 at 1730, Until Discontinu ed, Routine [facility] hydralAZINE (APRESOLINE ) injection 10 mg 07-19 22:16: 33 Yes 10mg 10 mg, Slow IV Push, Q6HPRN, Starting on Thu07/19/24 at 1716, Until Discontinu ed, Routine, DBP=>100; SBP=>160, For SBP > 160 [facility] pantoprazol e (PROTONIX) injection 40 mg 07-19 21:30: 00 Yes 40mg 40 mg, Slow IV Push, Q24H, First dose on Thu07/19/24 at 1630, Until Discontinu ed [facility] bisacodyL (DULCOLAX) suppository 10 mg 07-19 21:15: 00 07-19 21:04 :00 No 10mg 10 mg, Rectal, ONCE, 1 dose, On Thu07/19/24 at 1615, Routine [facility] diphenhydrA MINE:lidoca ine 2% viscous:maa lox 1:1:1 ([facility] oral suspension 15 mL 07-19 21:15: 00 07-19 21:02 :00 No 15mL 15 mL, Oral, ONCE, 1 dose, On Thu07/19/24 at 1615, Routine [facility] LORazepam (ATIVAN) injection 1 mg 07-19 20:24: 20 Yes 1mg 1 mg, Slow IV Push, Q2HPRN, Starting on Thu07/19/24 at 1524, Until Discontinu ed, Routine, withdrawl [facility] predniSONE (DELTASONE) tablet 10 mg 07-19 14:00: 00 Yes 10mg 10 mg, Oral, DAILY, First dose on Thu07/19/24 at 0900, Until Discontinu ed, Routine [facility] HYDROcodone -acetaminop hen (NORCO) 10-325 mg tablet 1 tablet 07-19 12:53: 33 Yes 1{tbl} 1 tablet, Oral, Q6HPRN, Starting on Thu07/19/24 at 0753, Until Discontinu ed, Routine, Pain (scale 4-6) [facility] budesonide- formoteroL (SYMBICORT) 160-4.5 mcg/actuati on inhaler 2 Puff 07-19 01:00: 00 Yes 2{puff} 2 Puff, Inhalation , BID, First dose on Thu07/18/24 at 2000, Until Discontinu ed, Routine [facility] ipratropium -albuteroL (DUONEB) 0.5 mg-3 mg(2.5 mg base)/3 mL nebulizer solution 3 mL 2024-0 9-10 01:00: 00 07-20 16:26 :23 No 3mL 3 mL, Inhalation , QID, First dose on Thu07/18/24 at 2000, Until Discontinu ed, Routine [facility] D5W 0.45% NaCl (1/2NS) 1 L + KCL 20 mEq 07-18 22:30: 00 Yes IV Infusion, at 75 mL/hr, CONTINUOUS , Starting on Thu07/18/24 at 1730, Until Discontinu ed, Routine [facility] ampicillin- sulbactam (UNASYN) 3 g in NaCl [...] Respirator y, Duration of therapy: 5 days [facility] enoxaparin (LOVENOX) injection 40 mg 07-18 22:00: 00 Yes 40mg 40 mg, Subcutaneo us, DAILY, First dose on Thu07/18/24 at 1700, Until Discontinu ed, Routine [facility] nicotine (NICODERM) 21 mg/24 hr patch 1 Patch 07-18 19:15: 00 Yes 1{patch } 1 Patch, Topical, Administer over 24 Hours, Q24H, First dose on Thu07/18/24 at 1415, Until Discontinu ed, Routine [facility] dexMEDEtomi dine 200 mcg in 0.9 % [...] at maximum allowed dose, contact prescriber . [facility] ketorolac (TORADOL) injection 30 mg 07-18 14:45: 00 07-18 15:15 :00 No 30mg 30 mg, Slow IV Push, ONCE, 1 dose, On Thu07/18/24 at 0945, LAURYN [facility] NaCl 0.9% (NS) bolus infusion 1,000 mL 07-18 14:30: 00 07-18 16:30 :00 No 1000mL at 999 mL/hr, 1,000 mL, IV Infusion, ONCE, 1 dose, On Thu07/18/24 at 0930, LAURYN [facility] thiamine mononitrate (VITAMIN B-1 (MONONITRAT E)) tablet 100 mg 07-18 14:00: 00 Yes 100mg 100 mg, Oral, DAILY, First dose on Thu07/18/24 at 0900, Until Discontinu ed, Routine [facility] foLIC acid (FOLATE) tablet 1 mg 07-18 14:00: 00 Yes 1mg 1 mg, Oral, DAILY, First dose on Thu07/18/24 at 0900, Until Discontinu ed, Routine [facility] methylpredn isolone sod succ (SOLU-MEDRO L) injection 125 mg 07-18 14:00: 00 07-18 13:12 :00 No 125mg 125 mg, Intravenou s, ONCE, 1 dose, On Thu07/18/24 at 0900, 2 mL [facility] oxazepam (SERAX) capsule 15 mg 07-18 13:50: 52 Yes 15mg 15 mg, Oral, Q4HPRN, Starting on Thu07/18/24 at 0850, Until Discontinu ed, Routine, Only while awake for DBP equal to or greater than 100, HR equal to or greater than 100. [facility] proMETHazin e (PHENERGAN) 12.5 mg in NS 50 mL IV piggyback (CNR) 07-18 13:45: 00 07-18 14:29 :00 No 12.5mg 12.5 mg, IV Piggyback, at 200 mL/hr Administer over 15 Minutes, ONCE, 1 dose, On Thu07/18/24 at 0845, [facility] cefTRIAXone (ROCEPHIN) 1,000 mg in NaCl 0.9% (NS) 100 mL MINI-BAG 07-18 13:30: 00 07-18 14:13 :00 No 1000mg 1,000 mg, IV Piggyback, ONCE, 1 dose, On Thu07/18/24 at 0830, Administer over 30 Minutes, 100 mL, Reason for Anti-Infec tive: Documented Infection, Documented Infection Site: Respirator y, Duration of Therapy: Once (ED) [facility] ipratropium -albuteroL (DUONEB) 0.5 mg-3 mg(2.5 mg base)/3 mL nebulizer solution 3 mL 07-18 13:30: 00 07-18 12:47 :00 No 3mL 3 mL, Inhalation , ONCE, 1 dose, On Thu07/18/24 at 0830, [facility] aspirin tablet 325 mg 07-18 13:15: 00 07-18 12:37 :00 No 325mg 325 mg, Oral, ONCE, 1 dose, On Thu07/18/24 at 0815, STAT [facility] NaCl 0.9% (NS) bolus infusion 1,000 mL 07-18 13:00: 00 07-18 14:57 :00 No 1000mL at 999 mL/hr, 1,000 mL, IV Infusion, ONCE, 1 dose, On Thu07/18/24 at 0800, [facility] LORazepam (ATIVAN) injection 1 mg 07-18 12:45: 00 07-18 12:46 :00 No 1mg 1 mg, Slow IV Push, ONCE, 1 dose, On Thu07/18/24 at 0745, STAT [facility] famotidine (PEPCID (PF)) injection 20 mg 07-18 12:15: 00 07-18 12:37 :00 No 20mg 20 mg, Slow IV Push, ONCE, 1 dose, On Thu07/18/24 at 0715, [facility] ondansetron (ZOFRAN (PF)) injection 8 mg 07-18 12:15: 00 07-18 12:37 :00 No 8mg 8 mg, Slow IV Push, ONCE, 1 dose, On Thu07/18/24 at 0715, [facility] albuterol sulfate HFA 90 mcg/actuati on aerosol [...] 1 dose, On Thu05/24/24 at 0900, LAURYN [facility] mupirocin 2 % ointment 05-24 00:00: 00 Yes [id number] 6 Apply to area(s) 3 (three) times daily. [facility] cephALEXin 500 mg tablet 05-24 00:00: 00 06-01 04:59 :00 No [id number] 6 500mg Take 1 tablet by mouth 4 (four) times daily for 7 days. [facility] ketorolac (TORADOL) injection 30 mg 02-17 03:15: 00 02-17 15:14 :00 No 30mg 30 mg, Slow IV Push, ONCE, 1 dose, On Thu02/17/24 at 2215, Routine [facility] methylpredn isolone sod succ (SOLU-MEDRO L) injection 125 mg 02-17 03:00: 00 02-17 14:59 :00 No 125mg 125 mg, Intravenou s, ONCE, 1 dose, On Thu02/17/24 at 2200, 2 mL [facility] ipratropium -albuteroL (DUONEB) 0.5 mg-3 mg(2.5 mg base)/3 mL nebulizer solution 6 mL 02-17 03:00: 00 02-17 14:59 :00 No 6mL 6 mL, Inhalation , ONCE NOW, 1 dose, On Thu02/17/24 at 2200, Routine [facility] NaCl 0.9% (NS) bolus infusion 1,000 mL 02-17 03:00: 00 02-17 14:59 :00 No 1000mL at 999 mL/hr, 1,000 mL, IV Infusion, ONCE, 1 dose, On Thu02/17/24 at 2200, LAURYN [facility] triamterene -hydrochlor othiazide 37.5-25 mg per capsule 02-16 20:52: 37 02-16 00:00 :00 No 1{capsu le} Take 1 capsule by mouth every morning. [facility] albuterol 5 mg/mL nebulizer solution 02-16 20:51: 42 02-16 00:00 :00 No 2.5mg Inhale 2.5 mg every 6 (six) hours as needed for Wheezing or Shortness of Breath. [facility] ketorolac (TORADOL) injection 15 mg 02-08 03:00: 00 02-08 02:21 :00 No 15mg 15 mg, Slow IV Push, ONCE, 1 dose, On Thu02/08/24 at 2200, Routine [facility] iopamidol (ISOVUE 370-500 mL) injection 100 mL 02-07 22:30: 00 02-07 22:30 :00 No [id number] 100mL 100 mL, Intravenou s, ONCE, 1 dose, On Thu02/08/24 at 1730, Routine [facility] ipratropium -albuteroL (DUONEB) 0.5 mg-3 mg(2.5 mg base)/3 mL nebulizer solution 3 mL 02-07 21:15: 00 02-07 20:45 :00 No 3mL 3 mL, Inhalation , ONCE, 1 dose, On Thu02/08/24 at 1615, Routine [facility] morpHINE (2 mg/mL) injection 4 mg 02-07 21:15: 00 02-07 20:27 :00 No 4mg 4 mg, Slow IV Push, ONCE, 1 dose, On Thu02/08/24 at 1615, STAT [facility] ondansetron (ZOFRAN (PF)) injection 4 mg 02-07 21:15: 00 02-07 20:22 :00 No 4mg 4 mg, Slow IV Push, ONCE, 1 dose, On Thu02/08/24 at 1615, [facility] magnesium sulfate in water 2 gram/50 mL (4 %) infusion 2 g 02-07 21:00: 00 02-07 21:30 :00 No 2g 2 g, IV Piggyback, Administer over 60 Minutes, ONCE, 1 dose, On Thu02/08/24 at 1600, Routine [facility] ipratropium -albuteroL (DUONEB) 0.5 mg-3 mg(2.5 mg base)/3 mL nebulizer solution 3 mL 02-07 20:30: 00 02-07 19:31 :00 No 3mL 3 mL, Inhalation , ONCE, 1 dose, On Thu02/08/24 at 1530, [facility] HYDROcodone -acetaminop hen (NORCO) 10-325 mg tablet 1 tablet 01-13 13:15: 00 01-13 12:15 :00 No 1{tbl} 1 tablet, Oral, ONCE, 1 dose, On Thu01/14/24 at 0715, [facility] ipratropium -albuteroL (DUONEB) 0.5 mg-3 mg(2.5 mg base)/3 mL nebulizer solution 3 mL 01-13 13:00: 00 01-13 11:53 :00 No 3mL 3 mL, Inhalation , ONCE NOW, 1 dose, On Thu01/14/24 at 0700, [facility] ondansetron (ZOFRAN (PF)) injection 4 mg 01-13 11:30: 00 01-13 11:37 :00 No 4mg 4 mg, Slow IV Push, ONCE, 1 dose, On Thu01/14/24 at 0530, [facility] morpHINE (4 mg/mL) injection 4 mg 01-13 11:30: 00 01-13 11:37 :00 No 4mg 4 mg, Slow IV Push, ONCE, 1 dose, On Thu01/14/24 at 0530, STAT [facility] azithromyci n (ZITHROMAX Z-PORTER) 250 mg tablet 01-13 00:00: 00 02-16 00:00 :00 No [id number] Take 500 mg on day 1 then 250 mg on days 2-5 [facility] predniSONE 20 mg tablet 01-13 00:00: 00 02-16 00:00 :00 No [id number] Take 1 po tid x 2 days, then take 1 po bid x 3 days, then take 1 po daily x 3 days. [facility] acetaminoph en-codeine 300-30 mg tablet 01-13 00:00: 00 01-21 04:59 :00 No [id number] 1{tbl} Take 1 tablet by mouth every 6 (six) hours as needed for Pain (scale 7-10) (severe cough) for up to 7 days. Indication s: acute pain, severe cough [facility] clonazePAM 1 mg tablet 12-26 00:00: 00 02-16 00:00 :00 No 1mg Take 1 tablet by mouth at bedtime as needed for Other (anxiety). [facility] KCL (KLOR-CON M20) tablet 40 mEq 12-23 05:00: 00 12-23 05:07 :00 No 40meq 40 mEq, Oral, ONCE, 1 dose, On Thu12/22/23 at 2300, LAURYN [facility] NaCl 0.9% (NS) bolus infusion 1,000 mL 12-23 05:00: 00 12-23 05:09 :00 No 1000mL at 999 mL/hr, 1,000 mL, IV Infusion, ONCE, 1 dose, On Thu12/22/23 at 2300, LAURYN [facility] ondansetron (ZOFRAN (PF)) injection 4 mg 12-23 04:30: 00 12-23 04:24 :00 No 4mg 4 mg, Slow IV Push, ONCE, 1 dose, On Thu12/22/23 at 2230, [facility] maalox:diph enhydrAMINE :lidocaine 2 % viscous 1:1:1 (FIRST-MOUT HWASH BLM) oral suspension 15 mL 12-23 04:15: 00 12-23 04:17 :00 No 15mL 15 mL, Oral, ONCE, 1 dose, On Thu12/22/23 at 2215, Routine [facility] famotidine (PEPCID (PF)) injection 20 mg 12-23 04:15: 00 12-23 04:15 :00 No 20mg 20 mg, Slow IV Push, ONCE, 1 dose, On Thu12/22/23 at 2215, [facility] HYDROcodone -acetaminop hen (NORCO) 10-325 mg tablet 1 tablet 12-22 04:30: 00 12-22 16:29 :00 No 1{tbl} 1 tablet, Oral, ONCE, 1 dose, On Thu12/21/23 at 2230, Routine [facility] pantoprazol e (PROTONIX) 80 mg in NaCl 0.9% (NS) 20 mL syringe 12-22 04:15: 00 12-22 16:14 :00 No 80mg 80 mg, IV Push, ONCE, 1 dose, On Thu12/21/23 at 2215, Administer over 2 Minutes, 20 mL [facility] iopamidol (ISOVUE 370-500 mL) injection 100 mL 12-22 03:30: 00 12-22 03:30 :00 No [id number] 100mL 100 mL, Intravenou s, ONCE, 1 dose, On Thu12/21/23 at 2130, Routine [facility] morpHINE (4 mg/mL) injection 4 mg 12-22 03:30: 00 12-22 02:16 :00 No 4mg 4 mg, Slow IV Push, ONCE, 1 dose, On Thu12/21/23 at 2130, Routine [facility] ondansetron (ZOFRAN (PF)) injection 4 mg 12-22 02:45: 00 12-22 02:02 :00 No 4mg 4 mg, Slow IV Push, ONCE, 1 dose, On Thu12/21/23 at 2045, Routine [facility] hydrocortis one 25 mg suppository 12-22 00:00: 00 Yes [id number] 25mg Insert 1 Suppositor y into rectum 2 (two) times daily as needed for Rectal itching/pa in. [facility] ondansetron 4 mg disintegrat ing tablet 12-22 00:00: 00 02-16 00:00 :00 No [id number] 4mg Take 1 tablet by mouth every 8 (eight) hours as needed for Nausea and Vomiting (N/V). [facility] amoxicillin -clavulanat e 875-125 mg per tablet 12-22 00:00: 00 01-02 05:59 :00 No [id number] 1{tbl} Take 1 tablet by mouth every 12 (twelve) hours for 10 days. [facility] methylpredn isolone sod succ (SOLU-MEDRO L) injection 125 mg 2022-11 08:45: 00 10-27 20:44 :00 No 125mg 125 mg, Slow IV Push, ONCE, 1 dose, On Thu10/27/23 at 0245, STAT [facility] ipratropium -albuteroL (DUONEB) 0.5 mg-3 mg(2.5 mg base)/3 mL nebulizer solution 3 mL 2022-11 08:45: 00 10-27 20:44 :00 No 3mL 3 mL, Inhalation , ONCE NOW, 1 dose, On Thu10/27/23 at 0245, LAURYN [facility] diazePAM (VALIUM) tablet 10 mg 2022-11 07:45: 00 10-27 19:44 :00 No 10mg 10 mg, Oral, ONCE, 1 dose, On Thu10/27/23 at 0145, LAURYN [facility] levoFLOXaci n (LEVAQUIN) tablet 500 mg 2022-11 07:45: 00 10-27 19:44 :00 No 500mg 500 mg, Oral, ONCE, 1 dose, On Thu10/27/23 at 0145, LAURYN
Re ason for Anti-Infec tive: Empiric Non-Surgic al Prophylaxi s
Durat ion of therapy: Once (ED) [facility] DICLOFEN SOD 75MG EC 04-08 00:00: [...] 00:00: 00 Yes Tunde Haro AMOX/K CLAV [id number] 7378-0 3-03 00:00: 00 Yes Tunde Haro iopamidol (ISOVUE 370-500 mL) injection 70 mL 2021-11 18:30: 00 10-14 18:30 :00 No [id number] 70mL 70 mL, Intravenou s, ONCE, 1 dose, On Thu10/14/22 at 1230, Routine [facility] methylpredn isolone sod succ (SOLU-MEDRO L) injection 125 mg 2021-11 18:00: 00 Yes 125mg 125 mg, Intravenou s, Q6H, First dose on Thu10/14/22 at 1200, Until Discontinu ed, Routine [facility] furosemide (LASIX) injection 40 mg 2021-11 17:45: 00 10-14 16:39 :00 No 40mg 40 mg, IV Push, ONCE, 1 dose, On Thu10/14/22 at 1145, LAURYN [facility] ipratropium -albuteroL (DUONEB) 0.5 mg-3 mg(2.5 mg base)/3 mL nebulizer solution 3 mL 2021-11 17:30: 00 10-14 16:41 :00 No 3mL 3 mL, Inhalation , ONCE, 1 dose, On Thu10/14/22 at 1130, Routine [facility] FENTanyl PF (SUBLIMAZE (PF)) injection 50 mcg 2021-11 16:45: 00 10-14 16:39 :00 No 50ug 50 mcg, Slow IV Push, ONCE, 1 dose, On Thu10/14/22 at 1045, Routine [facility] levoFLOXaci n 750 mg tablet 2021-11 00:00: 00 02-16 00:00 :00 No [id number] 750mg Take 1 tablet by mouth every 24 (twenty-fo ur) hours. [facility] HYDROcodone -acetaminop hen (NORCO) 10-325 mg tablet 1 tablet 03-12 12:15: 00 03-12 11:21 :00 No 1{tbl} 1 tablet, Oral, ONCE, 1 dose, On Thu03/12/22 at 0715, Routine [facility] HYDROcodone -acetaminop hen 10-325 mg tablet 03-12 00:00: 00 03-20 04:59 :00 No [id number] 1{tbl} Take 1 tablet by mouth every 6 (six) hours as needed for Pain (scale 7-10) for up to 7 days. Indication s: acute pain [facility] ipratropium -albuteroL (DUONEB) 0.5 mg-3 mg(2.5 mg base)/3 mL nebulizer solution 3 mL 02-20 13:00: 00 Yes 3mL 3 mL, Inhalation , QID, First dose on Thu02/20/22 at 0800, Until Discontinu ed, Routine [facility] methylPREDN ISolone sod succ (SOLU-MEDRO L (PF)) injection 40 mg 02-20 11:45: 00 02-20 10:43 :00 No 40mg 40 mg, Intravenou s, ONCE, 1 dose, On Thu02/20/22 at 0645, STAT [facility] foLIC acid (FOLATE) tablet 1 mg 02-20 11:45: 00 02-20 10:41 :00 No 1mg 1 mg, Oral, ONCE, 1 dose, On Thu02/20/22 at 0645, LAURYN [facility] thiamine (VITAMIN B1) injection 100 mg 02-20 11:45: 00 02-20 10:43 :00 No 100mg 100 mg, Intravenou s, ONCE, 1 dose, On Thu02/20/22 at 0645, LAURYN [facility] LORazepam (ATIVAN) injection 2 mg 02-20 11:45: 00 02-20 10:42 :00 No 2mg 2 mg, Slow IV Push, ONCE, 1 dose, On Kym 02/20/22 at 0645, STAT [facility] ipratropium -albuteroL (DUONEB) 0.5 mg-3 mg(2.5 mg base)/3 mL nebulizer solution 3 mL 02-20 10:30: 00 02-20 09:34 :00 No 3mL 3 mL, Inhalation , ONCE, 1 dose, On Thu02/20/22 at 0530, Routine [facility] triamterene -hydrochlor othiazid 37.5-25 mg tablet 02-20 00:00: 00 Yes [id number] 1{tbl} Take 1 tablet by mouth daily. [facility] albuterol 90 mcg/actuati on inhaler 02-20 00:00: 00 07-20 00:00 :00 No [id number] 2{puff} Inhale 2 Puffs every 4 (four) hours as needed for Wheezing or Shortness of Breath. [facility] chlordiazeP OXIDE 25 mg capsule 02-20 00:00: 00 07-20 00:00 :00 No [id number] 25mg Take 1 capsule by mouth every 6 (six) hours as needed for Anxiety, Agitation, Heart Rate => 100 or Detox. [facility] predniSONE 10 mg tablet 02-20 00:00: 00 02-16 00:00 :00 No [id number] TAKE ONE TABLET BY MOUTH DAILY [facility] albuterol 2.5 mg /3 mL (0.083 %) nebulizer solution 02-20 00:00: 00 02-16 00:00 :00 No [id number] 2.5mg Inhale 3 mL every 4 (four) hours. May also nebulize one extra every 6 hours. [facility] budesonide- formoteroL 160-4.5 mcg/actuati on inhaler 02-20 00:00: 00 02-16 00:00 :00 No [id number] 2{puff} Inhale 2 Puffs 2 (two) times daily. [facility] albuterol 5 mg/mL nebulizer solution 07-16 14:02: 20 Yes 2.5mg Inhale 2.5 mg every 6 (six) hours as needed for Wheezing or Shortness of Breath. [facility] budesonide- formoterol 160-4.5 mcg/actuati on inhaler 07-16 00:00: 00 Yes 2{puff} Inhale 2 Puffs 2 (two) times daily. [facility] albuterol 2.5 mg /3 mL (0.083 %) nebulizer solution 07-16 00:00: 00 Yes 2.5mg Inhale 3 mL every 4 (four) hours as needed for Wheezing or Shortness of Breath. [facility] triamterene -hydrochlor othiazide 37.5-25 mg per capsule 03-26 16:32: 14 Yes 1{capsu le} Take 1 capsule by mouth every morning. [facility] amLODIPine 10 mg tablet 03-26 16:32: 14 Yes 10mg Take 10 mg by mouth at bedtime. [facility] gabapentin 100 mg capsule 03-26 16:32: 14 Yes 100mg Take 100 mg by mouth 2 (two) times daily as needed ([facility] pain). [facility] foLIC acid 1 mg tablet 03-26 16:32: 14 Yes 1mg Take 1 mg by mouth daily. [facility] budesonide- formoterol 160-4.5 mcg/actuati on inhaler 03-26 00:00: 00 02-16 00:00 :00 No 2{puff} Inhale 2 Puffs 2 (two) times daily. [facility] Immunizations Ordered Immunization Name Filled Immunization Name Date Status Comments Source SARS-COV-2 COVID-19 PFIZER VACCINE 2021-02-03 00:00:00 Completed [facility] SARS-COV-2 COVID-19 PFIZER VACCINE 2021-02-03 00:00:00 Completed [facility] SARS-COV-2 COVID-19 PFIZER VACCINE 2021-02-03 00:00:00 Completed [facility] SARS-COV-2 COVID-19 PFIZER VACCINE 2021-01-13 00:00:00 Completed [facility] SARS-COV-2 COVID-19 PFIZER VACCINE 2021-01-13 00:00:00 Completed [facility] SARS-COV-2 COVID-19 PFIZER VACCINE 2021-01-13 00:00:00 Completed [facility] Pneumococcal Polysaccharide, PPSV23 (PNEUMOVAX) 2018-03-26 00:00:00 Completed [facility] Influenza Virus Vaccine Quad IM 3+ YRS 2018-03-26 00:00:00 Completed [facility] Pneumococcal Polysaccharide, PPSV23 (PNEUMOVAX) 2018-03-26 00:00:00 Completed [facility] Influenza Virus Vaccine Quad IM 3+ YRS 2018-03-26 00:00:00 Completed [facility] Pneumococcal Polysaccharide, PPSV23 (PNEUMOVAX) 2018-03-26 00:00:00 Completed [facility] Influenza Virus Vaccine Quad IM 3+ YRS 2018-03-26 00:00:00 Completed [facility] Pneumococcal Polysaccharide, PPSV23 (PNEUMOVAX) Unknown [facility] Influenza Virus Vaccine Quad IM 3+ YRS Unknown Completed [facility] SARS-COV-2 COVID-19 PFIZER VACCINE Unknown Completed [facility] Pneumococcal Polysaccharide, PPSV23 (PNEUMOVAX) Unknown [facility] Influenza Virus Vaccine Quad IM 3+ YRS Unknown Completed [facility] SARS-COV-2 COVID-19 PFIZER VACCINE Unknown Completed [facility] Pneumococcal Polysaccharide, PPSV23 (PNEUMOVAX) Unknown Completed [facility] Influenza Virus Vaccine Quad IM 3+ YRS Unknown Completed [facility] SARS-COV-2 COVID-19 PFIZER VACCINE Unknown Completed [facility] Pneumococcal Polysaccharide, PPSV23 (PNEUMOVAX) Unknown [facility] Influenza Virus Vaccine Quad IM 3+ YRS Unknown Completed [facility] SARS-COV-2 COVID-19 PFIZER VACCINE Unknown Completed [facility] Pneumococcal Polysaccharide, PPSV23 (PNEUMOVAX) Unknown Completed [facility] Influenza Virus Vaccine Quad IM 3+ YRS Unknown Completed [facility] SARS-COV-2 COVID-19 PFIZER VACCINE Unknown Completed [facility] Pneumococcal Polysaccharide, PPSV23 (PNEUMOVAX) Unknown Completed [facility] Influenza Virus Vaccine Quad IM 3+ YRS Unknown Completed [facility] SARS-COV-2 COVID-19 PFIZER VACCINE Unknown Completed [facility] Pneumococcal Polysaccharide, PPSV23 (PNEUMOVAX) Unknown Completed [facility] Influenza Virus Vaccine Quad IM 3+ YRS Unknown Completed [facility] SARS-COV-2 COVID-19 PFIZER VACCINE Unknown Completed [facility] Pneumococcal Polysaccharide, PPSV23 (PNEUMOVAX) Unknown Completed [facility] Influenza Virus Vaccine Quad IM 3+ YRS Unknown Completed [facility] SARS-COV-2 COVID-19 PFIZER VACCINE Unknown Completed [facility] Pneumococcal Polysaccharide, PPSV23 (PNEUMOVAX) Unknown Completed [facility] Influenza Virus Vaccine Quad IM 3+ YRS Unknown Completed [facility] SARS-COV-2 COVID-19 PFIZER VACCINE Unknown Completed [facility] Pneumococcal Polysaccharide, PPSV23 (PNEUMOVAX) Unknown Completed [facility] Influenza Virus Vaccine Quad IM 3+ YRS Unknown Completed [facility] SARS-COV-2 COVID-19 PFIZER VACCINE Unknown Completed [facility] Pneumococcal Polysaccharide, PPSV23 (PNEUMOVAX) Unknown Completed [facility] Influenza Virus Vaccine Quad IM 3+ YRS Unknown Completed [facility] SARS-COV-2 COVID-19 PFIZER VACCINE Unknown Completed [facility] Pneumococcal Polysaccharide, PPSV23 (PNEUMOVAX) Unknown Completed [facility] Influenza Virus Vaccine Quad IM 3+ YRS Unknown Completed [facility] SARS-COV-2 COVID-19 PFIZER VACCINE Unknown Completed [facility] Vital Signs Vital Name Observation Time Observation Value Comments S ource Systolic blood pressure 2024-07-23 18:00:00 175 mm[Hg] General acute hospital Diastolic blood pressure 2024-07-23 18:00:00 109 mm[Hg] General acute hospital Heart rate 2024-07-23 18:00:00 87 /min [facility] Respiratory rate 2024-07-23 18:00:00 16 /min [facility] Oxygen saturation in Arterial blood by Pulse oximetry 2024-07-23 18:00:00 100 /min General acute hospital Body temperature 2024-07-23 16:15:00 36.61 Debbie [facility] Body height 2024-07-23 16:15:00 162.6 cm [facility] Body weight 2024-07-23 16:15:00 123.832 kg [facility] BMI 2024-07-23 16:15:00 46.86 kg/m2 [facility] Heart rate 2024-07-20 19:15:00 116 /min [facility] Respiratory rate 2024-07-20 19:15:00 10 /min [facility] Oxygen saturation in Arterial blood by Pulse oximetry 2024-07-20 19:15:00 100 /min [facility] acute hospital Systolic blood pressure 2024-07-20 17:00:00 149 mm[Hg] General acute hospital Diastolic blood pressure 2024-07-20 17:00:00 131 mm[Hg] General acute hospital Body temperature 2024-07-20 16:00:00 37.06 Debbie [facility] Body weight 2024-07-20 08:00:00 82.5 kg [facility] BMI 2024-07-20 08:00:00 31.22 kg/m2 [facility] Body height 2024-07-18 14:23:00 162.6 cm [facility] Systolic blood pressure 2024-07-18 01:00:00 176 mm[Hg] General acute hospital Diastolic blood pressure 2024-07-18 01:00:00 88 mm[Hg] General acute hospital Heart rate 2024-07-18 01:00:00 113 /min [facility] Respiratory rate 2024-07-18 01:00:00 18 /min [facility] Oxygen saturation in Arterial blood by Pulse oximetry 2024-07-18 01:00:00 95 /min [facility] acute hospital Body temperature 2024-07-18 00:52:00 37.33 Debbie [facility] Body height 2024-07-18 00:52:00 162.6 cm [facility] Body weight 2024-07-18 00:52:00 122.925 kg [facility] BMI 2024-07-18 00:52:00 46.52 kg/m2 [facility] Systolic blood pressure 2024-05-24 13:51:42 157 mm[Hg] General acute hospital Diastolic blood pressure 2024-05-24 13:51:42 93 mm[Hg] General acute hospital Heart rate 2024-05-24 13:51:42 98 /min [facility] Respiratory rate 2024-05-24 13:51:42 18 /min [facility] Oxygen saturation in Arterial blood by Pulse oximetry 2024-05-24 13:51:42 97 /min General acute hospital Body temperature 2024-05-24 13:36:00 36.78 Debbie [facility] Body height 2024-05-24 13:36:00 162.6 cm [facility] Body weight 2024-05-24 13:36:00 78.472 kg [facility] BMI 2024-05-24 13:36:00 29.70 kg/m2 [facility] Systolic blood pressure 2024-02-18 01:57:00 134 mm[Hg] General acute hospital Diastolic blood pressure 2024-02-18 01:57:00 94 mm[Hg] General acute hospital Body height 2024-02-18 01:57:00 162.6 cm [facility] Body weight 2024-02-18 01:57:00 79.379 kg [facility] BMI 2024-02-18 01:57:00 30.04 kg/m2 [facility] Heart rate 2024-02-18 01:53:00 110 /min [facility] Body temperature 2024-02-18 01:53:00 36.61 Debbie [facility] Respiratory rate 2024-02-18 01:53:00 24 /min [facility] Oxygen saturation in Arterial blood by Pulse oximetry 2024-02-18 01:53:00 93 /min [facility] acute hospital Systolic blood pressure 2024-02-09 01:54:05 150 mm[Hg] General acute hospital Diastolic blood pressure 2024-02-09 01:54:05 91 mm[Hg] General acute hospital Heart rate 2024-02-09 01:54:05 87 /min [facility] Respiratory rate 2024-02-09 01:54:05 17 /min [facility] Oxygen saturation in Arterial blood by Pulse oximetry 2024-02-09 01:54:05 93 /min [facility] acute hospital Body temperature 2024-02-09 01:45:00 36.67 Debbie [facility] Body height 2024-02-09 01:45:00 162.6 cm [facility] Body weight 2024-02-09 01:45:00 81.194 kg [facility] BMI 2024-02-09 01:45:00 30.73 kg/m2 [facility] Respiratory rate 2024-02-08 21:00:00 18 /min [facility] Oxygen saturation in Arterial blood by Pulse oximetry 2024-02-08 21:00:00 96 /min [facility] acute hospital Systolic blood pressure 2024-02-08 20:27:00 164 mm[Hg] General acute hospital Diastolic blood pressure 2024-02-08 20:27:00 90 mm[Hg] General acute hospital Heart rate 2024-02-08 20:27:00 83 /min [facility] Body temperature 2024-02-08 19:12:00 36.83 Debbie [facility] Body height 2024-02-08 19:12:00 162.6 cm [facility] Body weight 2024-02-08 19:12:00 81.194 kg [facility] BMI 2024-02-08 19:12:00 30.73 kg/m2 [facility] Heart rate 2024-01-14 12:15:00 98 /min [facility] Body temperature 2024-01-14 12:15:00 36.56 Debbie [facility] Respiratory rate 2024-01-14 12:15:00 14 /min [facility] Oxygen saturation in Arterial blood by Pulse oximetry 2024-01-14 12:15:00 95 /min [facility] acute hospital Systolic blood pressure 2024-01-14 12:00:00 140 mm[Hg] General acute hospital Diastolic blood pressure 2024-01-14 12:00:00 90 mm[Hg] General acute hospital Body height 2024-01-14 10:51:00 162.6 cm [facility] Body weight 2024-01-14 10:51:00 81.194 kg [facility] BMI 2024-01-14 10:51:00 30.73 kg/m2 [facility] Systolic blood pressure 2023-12-23 05:02:00 133 mm[Hg] General acute hospital Diastolic blood pressure 2023-12-23 05:02:00 84 mm[Hg] General acute hospital Heart rate 2023-12-23 05:02:00 78 /min [facility] Body temperature 2023-12-23 05:02:00 36.17 Debbie [facility] Respiratory rate 2023-12-23 05:02:00 17 /min [facility] Oxygen saturation in Arterial blood by Pulse oximetry 2023-12-23 05:02:00 91 /min [facility] acute hospital Body height 2023-12-23 03:45:00 162.6 cm [facility] Body weight 2023-12-23 03:45:00 81.194 kg [facility] BMI 2023-12-23 03:45:00 30.73 kg/m2 [facility] Systolic blood pressure 2023-12-22 02:08:00 143 mm[Hg] General acute hospital Diastolic blood pressure 2023-12-22 02:08:00 92 mm[Hg] General acute hospital Heart rate 2023-12-22 02:08:00 81 /[facility] 2023-12-22 02:08:00 13 /min [facility] Oxygen saturation in Arterial blood by Pulse oximetry 2023-12-22 02:08:00 95 /min General acute hospital Body temperature 2023-12-22 01:33:00 36.72 Debbie [facility] Body height 2023-12-22 01:33:00 162.6 cm [facility] Body weight 2023-12-22 01:33:00 81.239 kg [facility] BMI 2023-12-22 01:33:00 30.74 kg/m2 [facility] Systolic blood pressure 2023-11-11 02:00:00 127 mm[Hg] General acute hospital Diastolic blood pressure 2023-11-11 02:00:00 87 mm[Hg] General acute hospital Heart rate 2023-11-11 02:00:00 79 /min [facility] Respiratory rate 2023-11-11 02:00:00 20 /min [facility] Oxygen saturation in Arterial blood by Pulse oximetry 2023-11-11 02:00:00 98 /min [facility] acute hospital Body temperature 2023-11-11 01:31:00 36.28 Debbie [facility] Body height 2023-11-11 01:31:00 162.6 cm [facility] Body weight 2023-11-11 01:31:00 79.379 kg [facility] BMI 2023-11-11 01:31:00 30.04 kg/m2 [facility] Systolic blood pressure 2023-10-27 06:54:00 133 mm[Hg] General acute hospital Diastolic blood pressure 2023-10-27 06:54:00 94 mm[Hg] General acute hospital Heart rate 2023-10-27 06:54:00 95 /min [facility] Body temperature 2023-10-27 06:54:00 36.44 Debbie [facility] Respiratory rate 2023-10-27 06:54:00 22 /min [facility] Body height 2023-10-27 06:54:00 162.6 cm [facility] Body weight 2023-10-27 06:54:00 78.472 kg [facility] BMI 2023-10-27 06:54:00 29.70 kg/m2 [facility] Oxygen saturation in Arterial blood by Pulse oximetry 2023-10-27 06:54:00 94 /min [facility] acute hospital Systolic blood pressure 2022-10-14 19:43:00 111 mm[Hg] General acute hospital Diastolic blood pressure 2022-10-14 19:43:00 74 mm[Hg] General acute hospital Heart rate 2022-10-14 19:43:00 98 /min [facility] Body temperature 2022-10-14 19:43:00 36.39 Debbie [facility] Respiratory rate 2022-10-14 19:43:00 22 /min [facility] Oxygen saturation in Arterial blood by Pulse oximetry 2022-10-14 19:43:00 94 /min [facility] acute hospital Body height 2022-10-14 16:13:00 162.6 cm [facility] Body weight 2022-10-14 16:13:00 81.647 kg [facility] BMI 2022-10-14 16:13:00 30.90 kg/m2 [facility] Systolic blood pressure 2022-03-12 10:13:00 119 mm[Hg] General acute hospital Diastolic blood pressure 2022-03-12 10:13:00 75 mm[Hg] General acute hospital Heart rate 2022-03-12 10:13:00 105 /min [facility] Body temperature 2022-03-12 10:13:00 37.28 Debbie [facility] Respiratory rate 2022-03-12 10:13:00 19 /min [facility] Body height 2022-03-12 10:13:00 162.6 cm [facility] Body weight 2022-03-12 10:13:00 99.791 kg [facility] BMI 2022-03-12 10:13:00 37.76 kg/m2 [facility] Oxygen saturation in Arterial blood by Pulse oximetry 2022-03-12 10:13:00 96 /min [facility] acute hospital Systolic blood pressure 2022-02-20 11:57:00 155 mm[Hg] General acute hospital Diastolic blood pressure 2022-02-20 11:57:00 88 mm[Hg] General acute hospital Heart rate 2022-02-20 11:57:00 105 /min [facility] Respiratory rate 2022-02-20 11:57:00 18 /min [facility] Oxygen saturation in Arterial blood by Pulse oximetry 2022-02-20 11:57:00 100 /min General acute hospital Body temperature 2022-02-20 09:25:00 37 Debbie [facility] Body height 2022-02-20 09:25:00 162.6 cm [facility] Body weight 2022-02-20 09:25:00 96.163 kg [facility] BMI 2022-02-20 09:25:00 36.39 kg/m2 [facility] Respiratory Rate 2024-05-26 13:39:00 16.00 [...] Source EKG-12 LEAD 2024-07-23 19:32:17 Yary Camp [facility] LACTIC ACID WHOLE BLOOD 2024-07-23 18:23:00 Mike Camp [facility] LIPASE 2024-07-23 17:05:00 Yary Camp [facility] TROPONIN I 2024-07-23 17:05:00 Conrado Yary G [facility] COMP. METABOLIC PANEL ([id number]) 2024-07-23 17:05:00 Yary Camp [facility] ETHANOL 2024-07-23 17:05:00 Yary Camp [facility] CBC WITH DIFF 2024-07-23 17:05:00 Yary Camp [facility] N-TERMINAL PRO-BNP 2024-07-23 17:05:00 Yary Camp [facility] HB ECG ROUTINE & RHYTHM STRIP 2024-07-20 14:13:43 Julien Marks [facility] MAGNESIUM 2024-07-20 08:21:00 Julien Marks [facility] BASIC METABOLIC PANEL (NA, K, CL, CO2, GLUCOSE, BUN, CREATININE, CA) 2024-07-20 08:21:00 Julien Marks [facility] CBC WITH DIFF 2024-07-20 08:21:00 Julien Marks [facility] MAGNESIUM 2024-07-19 09:24:00 Julien Marks [facility] BASIC METABOLIC PANEL (NA, K, CL, CO2, GLUCOSE, BUN, CREATININE, CA) 2024-07-19 09:24:00 Julien Marks [facility] CBC WITH DIFF 2024-07-19 09:24:00 Julien Marks [facility] LEGIONELLA AND STREPTOCOCCUS PNEUMONIAE URINARY ANTIGENS 2024-07-19 02:12:00 Julien Marks [facility] PROCALCITONIN 2024-07-18 21:39:00 Julien Marks [facility] LACTIC ACID WHOLE BLOOD 2024-07-18 15:51:00 Alfred Marks [facility] URINE DRUG (IMMUNOASSAY) - COMPREHENSIVE DRUG SCREEN W/O REFLEX 2024-07-18 15:31:00 Blu Mcguire [facility] MRSA / MSSA SCREEN BY PCR, NARES 2024-07-18 14:47:00 Julien Marks [facility] CT THORAX WO CONTRAST 2024-07-18 14:42:00 Rajinder Marks [facility] BLOOD CULTURE SCREEN 2024-07-18 13:01:00 Shay Stinson [facility] LACTIC ACID WHOLE BLOOD 2024-07-18 13:01:00 Facundo Stinson [facility] INFLUENZA A/B RSV COVID NAAT 2024-07-18 12:49:00 Shay Stinson [facility] LAB ONLY COVID INTERPRETATION 2024-07-18 12:49:00 Shay Stinson [facility] COMP. METABOLIC PANEL ([id number]) 2024-07-18 12:21:00 Blu Mcguire [facility] CRITICAL CARE 2024-07-18 12:12:28 Shay Stinson [facility] XR CHEST 1 VW 2024-07-18 11:40:27 Blu Mcguire [facility] TROPONIN I 2024-07-18 11:18:00 Blu Mcguire [facility] ETHANOL 2024-07-18 11:18:00 [facility] CBC WITH DIFF 2024-07-18 11:18:00 Blu Mcguire [facility] N-TERMINAL PRO-BNP 2024-07-18 11:18:00 Blu Mcguire [facility] HB ECG ROUTINE & RHYTHM STRIP 2024-07-18 11:10:41 Blu Mcguire [facility] XR CHEST 1 VW 2024-07-18 01:34:48 Blu Mcguire [facility] TROPONIN I 2024-07-18 00:56:00 Blu [facility] COMP. METABOLIC PANEL ([id number]) 2024-07-18 00:56:00 Blu Mcguire [facility] ETHANOL 2024-07-18 00:56:00 Blu [facility]guire [facility] CBC WITH DIFF 2024-07-18 00:56:00 Blu Mcguire [facility] N-TERMINAL PRO-BNP 2024-07-18 00:56:00 [facility] + LACTIC ACID 2024-02-08 20:47:00 Christina Villarreal [facility] XR CHEST 1 VW 2024-02-08 19:47:00 Christina Villarreal [facility] URINALYSIS 2024-02-08 19:36:00 Christina Villarreal [facility] MAGNESIUM 2024-02-08 19:25:00 [facility] TROPONIN I 2024-02-08 19:25:00 [facility] COMP. METABOLIC PANEL ([id number]) 2024-02-08 19:25:00 Christina Villarreal [facility] ETHANOL 2024-02-08 19:25:00 Christina Villarreal [facility] CBC WITH DIFF 2024-02-08 19:25:00 Christina Villarreal [facility] N-TERMINAL PRO-BNP 2024-02-08 19:25:00 Christina Villarreal [facility] EKG-12 LEAD 2024-01-14 12:00:51 Jac Navarro [facility] LIPASE 2024-01-14 11:11:00 Jac Navarro [facility] TROPONIN I 2024-01-14 11:11:00 Jac Navarro [facility] COMP. METABOLIC PANEL ([id number]) 2024-01-14 11:11:00 Jac Navarro [facility] ETHANOL 2024-01-14 11:11:00 Jac Navarro [facility] CBC WITH DIFF 2024-01-14 11:11:00 Jac Navarro [facility] N-TERMINAL PRO-BNP 2024-01-14 11:11:00 Jac Navarro [facility] COVID-19 (ID NOW RAPID TESTING) 2024-01-14 11:11:00 Jac Navarro [facility] CONSENT/REFUSAL FOR DIAGNOSIS AND TREATMENT 2024-01-14 10:44:32 Doctor Unassigned, [place] [facility] LIPASE 2023-12-23 04:17:00 Cailin Rowe Un [facility] COMP. METABOLIC PANEL ([id number]) 2023-12-23 04:17:00 Cailin Rowe [facility] CBC WITH DIFF 2023-12-23 04:17:00 [facility]-12-23 04:17:00 Cailin Rowe Un [facility] CONSENT/REFUSAL FOR DIAGNOSIS AND TREATMENT 2023-12-23 03:40:32 Doctor Unassigned, [place] [facility] CT ABDOMEN PELVIS W CONTRAST 2023-12-22 02:31:05 Quentin Hastings [facility] LIPASE 2023-12-22 01:58:00 Quentin Hastings [facility] COMP. METABOLIC PANEL ([id number]) 2023-12-22 01:58:00 Quentin Hastings [facility] ETHANOL 2023-12-22 01:58:00 Quentin Hastings [facility] CBC WITH DIFF 2023-12-22 01:58:00 Quentin Hastings [facility] PROTHROMBIN TIME / INR 2023-12-22 01:58:00 Wali Hastings [facility] URINALYSIS 2023-12-22 01:58:00 [facility] CONSENT/REFUSAL FOR DIAGNOSIS AND TREATMENT 2023-12-22 01:19:14 Doctor Unassigned, [place] [facility] NOTICE OF PRIVACY PRACTICES 2023-11-11 01:24:24 Doctor Unassigned, [place] [facility] CONSENT/REFUSAL FOR DIAGNOSIS AND TREATMENT 2023-11-11 01:23:54 Doctor Unassigned, [place] [facility] COVID-19 (ID NOW RAPID TESTING) 2023-10-27 07:09:00 Jac Navarro [facility] NOTICE OF PRIVACY PRACTICES 2023-10-27 06:49:48 Doctor Unassigned, [place] [facility] CONSENT/REFUSAL FOR DIAGNOSIS AND TREATMENT 2023-10-27 06:47:40 Doctor Unassigned, [place] [facility] CT ABDOMEN PELVIS W CONTRAST 2022-10-14 17:33:00 [facility] 2022-10-14 17:10:37 Singer [facility] TROPONIN I 2022-10-14 16:37:00 [facility] COMP. METABOLIC PANEL (71877) 2022-10-14 16:37:00 [facility] 2022-10-14 16:37[facility] 2022-10-14 16:37:00 [facility] 2022-10-14 16:37:00 [facility] N-TERMINAL PRO-BNP 2022-10-14 16:37:00 Quentin Hastings [facility] CONSENT/REFUSAL FOR DIAGNOSIS AND TREATMENT 2022-10-14 15:56:36 Doctor Unassigned, [place] [facility] CONSENT/REFUSAL FOR DIAGNOSIS AND TREATMENT 2022-03-12 10:03:12 Doctor Unassigned, [place] [facility] XR CHEST 1 VW 2022-02-20 09:59:00 Christy Holliday [facility] LIPASE 2022-02-20 09:30:00 Christy Holliday [facility] TROPONIN I 2022-02-20 09:30:00 Christy Holliday [facility] COMP. METABOLIC PANEL (63612) 2022-02-20 09:30:00 Christy Holliday [facility] CBC WITH DIFF 2022-02-20 09:30:00 Christy Holliday [facility] N-TERMINAL PRO-BNP 2022-02-20 09:30:00 Christy Holliday [facility] NOTICE OF PRIVACY PRACTICES 2022-02-20 09:15:02 Doctor Unassigned, [place] [facility] CONSENT/REFUSAL FOR DIAGNOSIS AND TREATMENT 2022-02-20 09:14:47 Doctor Unassigned, [place] [facility] Encounters Start Date/Time End Date/Time Encounter Type Admission Type Attending [facility] Facility Care Department Encounter ID Source 2024-07-23 11:09:00 2024-07-23 13:55:00 Emergency X YARY CAMP PAMALA [facility] ERT [id number] [facility] 2024-07-23 11:09:00 2024-07-23 13:55:00 Emergency Yary Camp [facility] 1.2.840.114 350.1.13.10 4.2.7.2.686 [id number] [facility] 2024-07-18 06:09:00 2024-07-20 15:00:00 Inpatient X JULIEN MARKS [facility] JOÃO [id number] [facility] 2024-07-18 06:09:00 2024-07-20 15:00:00 Hospital Encounter Blu Mcguire Robert Lee Morris, David [facility] 1.2.840.114 350.1.13.10 4.2.7.2.686 [id number] [facility] 2024-07-17 19:49:00 2024-07-17 21:02:00 Emergency X MCGUIRE BLU FAROOQ [facility] ERT [id number] [facility] 2024-07-17 19:49:00 2024-07-17 21:02:00 Emergency Blu Mcguire [facility] 1..840.114 350.1.13.10 4.2.7.2.686 [id number] [id number] [facility] 2024-06-06 10:15:00 2024-06-06 10:15:00 Outpatient WENDY BROWNLEE [id number] Maria Elena Alcantara 2024-05-26 13:21:21 2024-05-26 13:21:21 Outpatient SFA [facility] [id number] Tunde Haro 2024-05-26 00:00:00 2024-05-26 00:00:00 Outpatient Visit [facility] [id number] Tunde Haro 2024-05-24 08:36:00 2024-05-24 09:39:00 Emergency X MYRNA SANDHU [facility] ERT [id number] [facility] 2024-05-24 08:36:00 2024-05-24 09:39:00 Emergency Myrna Sandhu [facility] ..840.114 350.1.13.10 4.2.7.2.686 [id number] [facility] 2024-04-14 16:30:00 2024-04-14 16:30:00 Outpatient DARIEN LOBO [id number] Maria Elena Alcantara 2024-04-12 11:00:00 2024-04-12 11:00:00 Outpatient MINNA ORTA MARIA ELENA BECERRA [id number] Maria Elena [facility] 2024-04-12 11:00:00 2024-04-12 11:00:00 Outpatient KEMWENDY [facility]ECERRA [id number] [facility] 2024-04-12 00:00:00 2024-04-12 00:00:00 Outpatient SHARATH HALEY [facility] [id number] Maria Elena [facility] 2024-04-05 11:30:00 2024-04-05 11:30:00 Outpatient ROYADARIEN Olson MARIA ELENA BECERRA [id number] Maria Elena [facility] 2024-04-05 00:00:00 2024-04-05 00:00:00 Outpatient DARIEN LOBO MARIA ELENA BECERRA [id number] [facility] 2024-03-28 00:00:00 2024-03-28 00:00:00 Outpatient ALFREDONIURKADARIEN Olson MARIA ELENA BECERRA [id number] [facility] 2024-03-15 08:30:00 2024-03-15 08:30:00 Outpatient KEMWENDY POPE MARIA ELENA BECERRA [id number] [facility] 2024-02-17 20:58:00 2024-02-17 21:44:00 Emergency X CONRADO YARY [facility] ERT [id number] [facility] 2024-02-17 20:58:00 2024-02-17 21:44:00 Emergency BaljitYary groves [facility] 1.2.840.114 350.1.13.10 4.2.7.2.686 [id number] [facility] 2024-02-09 13:10:00 2024-02-09 15:14:00 Emergency E TUNDE QUINTANILLA [facility] [id number] [facility] 2024-02-08 20:38:00 2024-02-08 21:40:00 Emergency X KEISHA DAVENPORT [facility] ERT [id number] [facility] 2024-02-08 20:38:00 2024-02-08 21:40:00 Emergency Keisha Davenport [facility] 1.2.840.114 350.1.13.10 4.2.7.2.686 [id number] [facility] 2024-02-08 14:08:00 2024-02-08 17:06:00 Emergency Christina Villarreal [facility] 1.2.840.114 350.1.13.10 4.2.7.2.686 [id number] [facility] 2024-01-14 04:46:00 2024-01-14 06:23:00 Emergency X MELANIE JAC [facility] ERT [id number] [facility] 2024-01-14 04:46:00 2024-01-14 06:23:00 Emergency Melanie Jac J [facility] 1.2.840.114 350.1.13.10 4.2.7.2.686 [id number] [id number] [facility] 2023-12-22 21:51:00 2023-12-22 23:13:00 Emergency X TREV ROWERADHA [facility] ERT [id number] [facility] 2023-12-22 21:51:00 2023-12-22 23:13:00 Emergency SullyherberthCailin avendano [facility] 1.2.840.114 350.1.13.10 4.2.7.2.686 [id number] [facility] 2023-12-21 19:36:00 2023-12-21 21:52:00 Emergency X QUENTIN HASTINGS [facility] ERT [id number] [facility] 2023-12-21 19:36:00 2023-12-21 21:52:00 Emergency Quentin Hastings [facility] 1.2.840.114 350.1.13.10 4.2.7.2.686 [id number] [id number] [facility] 2023-11-10 19:29:00 2023-11-10 20:14:00 Emergency X CHRISTY HOLLIDAY [facility] ERT [id number] [facility] 2023-11-10 19:29:00 2023-11-10 20:14:00 Emergency Christy Holliday [facility] 1.2.840.114 350.1.13.10 4.2.7.2.686 [id number] [facility] 2023-10-27 00:49:00 2023-10-27 01:41:00 Emergency X MELANIEJAC [facility] ERT [id number] [facility] 2023-10-27 00:49:00 2023-10-27 01:41:00 Emergency Jac Navarro [facility] 1..840.114 350.1.13.10 4.2.7.2.686 [id number] [facility] 2023-07-15 00:00:00 2023-07-15 00:00:00 Outpatient DARIEN LOBO [id number] Maria Elena [facility] 2023-06-16 11:30:00 2023-06-16 11:30:00 Outpatient DARIEN LOBO [id number] Maria Elena [facility] 2023-05-18 00:00:00 2023-05-18 00:00:00 Outpatient MARIA [facility]LENA CHAN [id number] [facility]22-[facility]-14 10:07:00 2022-10-14 14:39:00 Emergency X QUENTIN HASTINGS [facility] ERT [id number] [facility] 2022-10-14 10:07:00 2022-10-14 14:39:00 Emergency Quentin Hastings [facility] 1..840.114 350.1.13.10 4.2.7.2.686 [id number] [facility] 2022-03-12 05:15:00 2022-03-12 06:41:00 Emergency X CHRISTY HOLLIDAY [facility] ERT [id number] [facility] 2022-03-12 05:15:00 2022-03-12 06:41:00 Emergency Christy Holliday [facility] 1.2.840.114 350.1.13.10 4.2.7.2.686 [id number] [id number] [facility] 2022-02-20 04:17:00 2022-02-20 07:16:00 Emergency X CHRISTY HOLLIDAY [facility] ERT [id number] [facility] 2022-02-20 04:17:00 2022-02-20 07:16:00 [facility] 1.2.840.114 350.1.13.10 4.2.7.2.686 [id number] [facility] 2021-02-03 11:10:00 2021-02-03 11:10:00 Outpatient R DENISE SUNG [facility] [id number] [facility] 2021-01-13 11:20:00 2021-01-13 11:20:00 Outpatient [facility] [id number] [facility] 2020-11-10 08:20:00 2020-11-10 08:20:00 Outpatient R KARLEY ADAMS [facility] [id number] [facility] Results Test Description Test Time Test Comments Results Result Co mments Source [facility] WITH [id number] 18:19:05* Test Item Value Reference Range Interpretation [...] 33.2 g/dL 31.2-35.0 RDW-SD (test code = 82547-1) 53.9 fL 38.5-51.6 H RDW-CV (test code = 788-0) 15.2 % 12.1-15.4 PLT (test code = 777-3) 271 150-328 No platelet clum p seen on the smear MPV (test code = 86071-3) 10.1 fL 9.8-13.0 IPF % (test code = 9700620298) 4.2 % 1.2-10.7 Platelet count measured by fluorescence method. NRBC/100 WBC (test code = 0872464982) 0.0 0.0-10.0 NRBC x10^3 (test code = 7664141461) See_Comment [Automated messa ge] The system which generated this result transmitted reference range: 10*3/?L. The reference range was not used to interpret this result as normal/abnormal. GRAN MAT (NEUT) % (test code = 770-8) 74.5 % IMM GRAN % (test code = 7393300452) 1.70 % LYMPH % (test code = 736-9) 12.8 % MONO % (test code = 5905-5) 10.4 % EOS % (test code = 713-8) 0.3 % BASO % (test code = 706-2) 0.3 % GRAN MAT x10^3(ANC) (test code = 5480724269) 10.27 10*3/uL 1.99-6.95 H IMM GRAN x10^3 (test code = 3418675156) 0.23 10*3/uL 0.00-0.06 H LYMPH x10^3 (test code = 731-0) 1.77 10*3/uL 1.09-3.23 MONO x10^3 (test code = 742-7) 1.43 10*3/uL 0.36-1.02 H EOS x10^3 (test code = 711-2) 0.04 10*3/uL 0.06-0.53 L BASO x10^3 (test code = 704-7) 0.04 10*3/uL 0.01-0.09 ELLIPTO/OVAL (test code = 81833-8) 2+ See_Comment A [Automated iVengoa ge] The system which generated this result transmitted reference range: (none). The reference range was not used to interpret this result as normal/abnormal. POLYCHROMASIA (test code = 31806-9) 2+ See_Comment [Automated iVengoa ge] The system which generated this result transmitted reference range: 2+. The reference range was not used to interpret this result as normal/abnormal. SPHEROCYTES (test code = 802-9) 1+ A TOXIC CHANGES (test code = 803-7) Present A PLT ESTIMATE (test code = 9317-9) Normal Normal Lab Interpretation (test code = 91673-1) Abnormal [facility] [id number] 17:49:42* Test Item Value Reference Range Interpretation Comme nts TROPONIN I (test code = 4276333740) 0.004 ng/mL <=0.034 LOUISE (test code = LOUISE) [...] of biotin. Lab Interpretation (test code = 76531-0) Normal [facility] Hospital[facility]MINAL PVS-[id number] 17:47:05* Test Item Value Reference Range Interpretation Comme nts NT-proBNP (test code = 12448-2) 125 pg/mL <=125 Lab Interpretation (test cod e = 70817-1) Normal [facility] HospitalETHANOL2024-09-14 17:39:20 ALCOHOL<10mg/dL07/23/2024 12:39 [facility]10 Zcydapka39-426 Toxic>100 Depression of ALTERATION TAILOR>400 [facility] METABOLIC PANEL (53193)2024-07-23 17:38:03* Test Item Value Reference Range Interpretation Comme nts NA (test code = 3325143505) 134 mmol/L 135-145 L K (test code = 4300112439) 3.8 mmol/L 3.5-5.0 CL (test code = 1801769335) 98 mmol/L 98-108 CO2 TOTAL (test code = 0298227198) 22 mmol/L 23-31 L AGAP (test code = 1238285343) 14 2-16 BUN (test code = 7669353084) 14 mg/dL 7-23 GLUCOSE (test code = 6332726628) 110 mg/dL 70-110 CREATININE (test code = 2160-0) 0.54 mg/dL 0.60-1.25 L TOTAL BILI (test code = 3655331232) 1.1 mg/dL 0.1-1.1 CALCIUM (test code = 8760481354) 9.4 mg/dL 8.6-10.6 T PROTEIN (test code = 9696151560) 7.8 g/dL 6.3-8.2 ALBUMIN (test code = 5428283919) 4.9 g/dL 3.5-5.0 ALK PHOS (test code = 9383540427) 75 U/L 34-122 ALTv (test code = 1742-6) 21 U/L 5-50 AST(SGOT) (test code = 5400534411) 30 U/L 13-40 eGFR (test code = 32254-5) 117.0 mL/min/1.73m2 CKD-EPI eGFR (2020). Assuming creatinine has been stable day-to-day for at least three months, the eGFR indicates Category G1 (>= 90 mL/min/1.73 m2) Lab Interpretation (test code = 47183-6) Abnormal [facility]2024-[facility]-14 17:38:03* Test Item Value Reference Range Interpretation Comme nts LIPASE (test code = 5411452873) 48 U/L 0-220 Lab Interpretation (test cod e = 24892-0) Normal [facility] HospitalCT THORAX WO [id number] 13:12:40 PROCEDURE: CT CHEST WITHOUT CONTRAST - [...] lesions are detected.The soft tissues appear normal. [facility] HospitalProcalcitonin2024-09-10 07:32:10* Test Item Value Reference Range Interpretation Comme [facility] Procalcitonin (test code = 5860568304) 0.02 ng/mL <=0.07 LOUISE (test code = [...] lung abscess/empyema. For further information please refer to:[email or web address] Lab Interpretation (test code = 27469-5) Normal [facility] HospitalLactic Acid Whole Qbvlc3041-20-59 16:01:14* Test Item Value Reference Range Interpretation Comme nts LACTIC ACID (test code = 8409793175) 1.87 mmol/L 0.50-2.20 Lab Interpretation (test cod e = 75804-7) Normal [facility] HospitalLactic Acid Whole Cbgag1563-31-64 13:12:25* Test Item Value Reference Range Interpretation Comme nts LACTIC ACID (test code = 1655260225) 6.23 mmol/L 0.50-2.20 H Lab Interpretation (test cod e = 78412-2) Abnormal [facility]. METABOLIC PANEL (08080)2024-07-18 12:56:44* Test Item Value Reference Range Interpretation Comme nts NA (test code = 3325938381) 140 mmol/L 135-145 K (test code = 1526675482) 4.1 mmol/L 3.5-5.0 CL (test code = 9886953610) 102 mmol/L 98-108 CO2 TOTAL (test code = 6312758929) 20 mmol/L 23-31 L AGAP (test code = 8281224679) 18 2-16 H BUN (test code = 7106912582) 10 mg/dL 7-23 GLUCOSE (test code = 3746436935) 123 mg/dL 70-110 H CREATININE (test code = 2160-0) 0.59 mg/dL 0.60-1.25 L TOTAL BILI (test code = 4114337521) 0.6 mg/dL 0.1-1.1 CALCIUM (test code = 7572354341) 9.1 mg/dL 8.6-10.6 T PROTEIN (test code = 9870601622) 7.8 g/dL 6.3-8.2 ALBUMIN (test code = 3249954117) 4.9 g/dL 3.5-5.0 ALK PHOS (test code = 5643178749) 75 U/L 34-122 ALTv (test code = 1742-6) 23 U/L 5-50 AST(SGOT) (test code = 4472625040) 34 U/L 13-40 eGFR (test code = 26485-5) 113.9 mL/min/1.73m2 CKD-EPI eGFR (2020). Assuming creatinine has been stable day-to-day for at least three months, the eGFR indicates Category G1 (>= 90 mL/min/1.73 m2) Lab Interpretation (test code = 25915-7) Abnormal [facility] HospitalCritical Acih3585-71-41 12:12:28Shay Stinson MD ? ? 07/18/2024 ?8:56 [...] ? ?Care discussed with: admitting provider ? [facility] [id number] 12:08:40* Test Item Value Reference Range Interpretation Comme nts TROPONIN I (test code = 4653317116) 0.015 ng/mL <=0.034 LOUISE (test code = [...] of biotin. Lab Interpretation (test code = 93407-5) Normal [facility] HospitalN-TERMINAL NCZ-[id number] 12:01:41* Test Item Value Reference Range Interpretation Comme nts NT-proBNP (test code = 13519-0) 111 pg/mL <=125 Lab Interpretation (test cod e = 16368-4) Normal [facility] HospitalXR CHEST 1 [id number] 11:57:22ORDERING PHYSICIAN: ?BLU MCGUIRE CLINICAL HISTORY: Shortness of breath TECHNIQUE: Frontal view of chest COMPARISON: 07/17/2024 FINDINGS: The cardiac silhouette is mildly enlarged, stable. ?Stable right lower lobepatchy infiltrate. There are no effusions. The left lung is clear. Osseous structures are normal.[facility] HospitalETHANOL2024-09-09 11:53:01* Test Item Value Reference Range Interpretation Comme nts ALCOHOL (test code = 4830253002) 91 mg/dL LOUISE (test code = LOUISE) <10 Nvrqghdy08-631 Toxic>100 Depression of ALTERATION TAILOR>400 Fatalities Reported [facility] WITH [id number] 11:36:10* Test Item Value Reference Range Interpretation [...] 32.4 g/dL 31.2-35.0 RDW-SD (test code = 77158-1) 58.6 fL 38.5-51.6 H RDW-CV (test code = 788-0) 16.3 % 12.1-15.4 H PLT (test code = 777-3) 229 150-328 MPV (test code = 83808-9) 9.0 fL 9.8-13.0 L NRBC/100 WBC (test code = 6222549421) 0.0 0.0-10.0 NRBC x10^3 (test code = 6372306441) See_Comment [Automated message] The system which generated this result transmitted reference range: 10*3/?L. The reference range was not used to interpret this result as normal/abnormal. GRAN MAT (NEUT) % (test code = 770-8) 76.7 % IMM GRAN % (test code = 0550261208) 0.80 % LYMPH % (test code = 736-9) 15.8 % MONO % (test code = 5905-5) 6.6 % EOS % (test code = 713-8) 0.0 % BASO % (test code = 706-2) 0.1 % GRAN MAT x10^3(ANC) (test code = 9723440821) 11.29 10*3/uL 1.99-6.95 H IMM GRAN x10^3 (test code = 6563691394) 0.12 10*3/uL 0.00-0.06 H LYMPH x10^3 (test code = 731-0) 2.32 10*3/uL 1.09-3.23 MONO x10^3 (test code = 742-7) 0.97 10*3/uL 0.36-1.02 EOS x10^3 (test code = 711-2) 0.06-0.53 L BASO x10^3 (test code = 704-7) 0.01-0.09 Lab Interpretation (test code = 11188-2) Abnormal [facility] 1 [id number] 02:23:27EXAM: ?XR CHEST 1 VW HISTORY: ?dyspnea Ordering physician: BLU MCGUIRE COMPARISON: Chest x-ray from February 08, 2024. TECHNIQUE: Frontal chest x-ray. ? FINDINGS: Heart size is stable. Pulmonary vessels are normal. Mild infiltrate in theright lower lung is present. No pneumothorax or pleural effusion isdetected. Mediastinal contour is normal. No free air is discerned. There isno displaced rib fracture. ?[facility] HospitalCOMPREHENSIVE METABOLIC PANEL 2024-05-28 00:00:00* Test Item Value Reference Range Interpretation Comme nts GLUCOSE (test code = 2217) 145 MG/DL BUN (test code = 2208) 8 MG/DL CREATININE (test code = 2214) 0.71 MG/DL eGFR (2020 CKD-EPI) (test code = 27866) 108 ML/MIN/1.73 CALC BUN/CREAT (test code = [...] = 2219) 11 U/L Tunde Quiñonez TahirHEMOGLOBIN [id number] 00:00:00* Test Item Value Reference Range Interpretation Comme nts HEMOGLOBIN A1c (test code = 87189) 5.5 % Tunde Olamide TahirLIPID [id number] 00:00:00* Test Item Value Reference Range Interpretation Comme nts CHOLESTEROL (test code = 2210) 234 MG/DL TRIGLYCERIDES (test code = 2232) 176 MG/DL HDL CHOLESTEROL (test code = 2220) 80 MG/DL CALC LDL CHOL (test code = 2237) 125 MG/DL RISK RATIO LDL/HDL (test cod e = 2238) 1.56 RATIO Tunde Olamide TahirCBC W/AUTO [id number] 00:00:00* Test Item Value Reference Range Interpretation [...] ABS NUCLEATED RBCS (test cod e = 26901) 0.00 K/UL Tunde HaroIzadhfAisskeq0344-97-92 21:47:04* Test Item Value Reference Range Interpretation Comme nts ALCOHOL (test code = 7303201544) 329 mg/dL LOUISE (test code = LOUISE) <10 Mwisgbst15-356 Toxic>100 Depression of ALTERATION TAILOR>400 Fatalities Reported [facility] HospitalAC Panel 20 + Lactic Kika1993-61-09 20:52:47* Test Item Value Reference Range Interpretation Comme nts PH (test code = 2) 7.39 7.35-7.45 PCO2 (test code = 5546979460) 42 35-45 PO2 (test code = 1405356651) 76 80-100 L HCO3 (test code = 0645262922) 25 22-26 BE (test code = 9485200612) -0.1 -3.0-3.0 THB (test code = 4222188730) 14.3 g/dL 13.5-18.0 %O2HB (test code = 9161221814) 85.8 % 94.0-99.0 L %COHB ART (test code = 2878639535) 9.0 % 0.0-1.5 H %METHB ART (test code = 1922504697) 0.3 % 0.4-1.5 L VOL%O2 ART (test code = 1656733501) 17.3 % 15.0-23.0 NA (test code = 0220755682) 140 mmol/L 135-145 K+ (test code = 5666604595) 4.1 mmol/L 3.5-5.0 AC CA IONZ (test code = 4038254176) 4.50 mg/dL 4.50-5.30 GLUCOSE (test code = 5035325872) 105 mg/dL 70-110 LACTIC ACID (test code = 8467680664) 2.60 mmol/L 0.50-2.20 H Lab Interpretation (test cod e = 52178-5) Abnormal [facility] HospitalTroponin [id number] 20:34:14* Test Item Value Reference Range Interpretation Comme nts TROPONIN I (test code = 4935554361) 0.008 ng/mL <=0.034 LOUISE (test code = [...] of biotin. Lab Interpretation (test code = 68338-1) Normal [facility] HospitalN-Terminal Qan-Wdf3955-32-01 20:31:35* Test Item Value Reference Range Interpretation Comme nts NT-proBNP (test code = 80185-8) 188 pg/mL <=125 LOUISE (test code = LOUISE) Result Indeterminate-Consid er causes of NT-proBNP elevation other than Heart failure such as acute coronary syndrome, pulmonary embolism, pulmonary hypertension, sepsis, stroke, and renal dysfunction. Lab Interpretation (test code = 98009-2) Abnormal [facility] HospitalComp. Metabolic Panel (98007)2024-02-08 20:21:10* Test Item Value Reference Range Interpretation Comme nts NA (test code = 7608393028) 135 mmol/L 135-145 K (test code = 8835090965) 4.5 mmol/L 3.5-5.0 CL (test code = 6554838192) 100 mmol/L 98-108 CO2 TOTAL (test code = 3498910824) 22 mmol/L 23-31 L AGAP (test code = 9204309461) 13 2-16 BUN (test code = 7662888576) 8 mg/dL 7-23 GLUCOSE (test code = 7016650411) 97 mg/dL 70-110 CREATININE (test code = 2160-0) 0.65 mg/dL 0.60-1.25 TOTAL BILI (test code = 2809619281) 0.4 mg/dL 0.1-1.1 CALCIUM (test code = 1049780239) 9.4 mg/dL 8.6-10.6 T PROTEIN (test code = 3620117240) 8.2 g/dL 6.3-8.2 ALBUMIN (test code = 6352599600) 4.7 g/dL 3.5-5.0 ALK PHOS (test code = 2423298450) 76 U/L 34-122 ALTv (test code = 1742-6) 33 U/L 5-50 AST(SGOT) (test code = 3813554678) 54 U/L 13-40 H eGFR (test code = 39705-8) 111.3 mL/min/1.73m2 CKD-EPI eGFR (2020). Assuming creatinine has been stable day-to-day for at least three months, the eGFR indicates Category G1 (>= 90 mL/min/1.73 m2) Lab Interpretation (test code = 34043-7) [facility] Test Item Value Reference Range Interpretation Comme nts MAGNESIUM (test code = 7126773854) 2.1 mg/dL 1.7-2.4 Lab Interpretation (test cod e = 28116-4) [facility] [id number] 20:07:21EXAM: XR CHEST 1 VW COMPARISON: 01/14/2024 HISTORY: sob FINDINGS: Lungs: Slightly hyperexpanded lungswith subtle progression of interstitialprominence. Trace pleural effusions could be present. Heart/Mediastinum: Stable cardiomegaly. Bones and soft tissues: No osseous abnormality is visualized.[facility] Cbc with [id number] 20:04:26* Test Item Value Reference Range Interpretation [...] 33.8 g/dL 31.2-35.0 RDW-SD (test code = 41981-4) 50.5 fL 38.5-51.6 RDW-CV (test code = 788-0) 14.3 % 12.1-15.4 PLT (test code = 777-3) 206 150-328 MPV (test code = 17626-2) 9.1 fL 9.8-13.0 L NRBC/100 WBC (test code = 5765173265) 0.0 0.0-10.0 NRBC x10^3 (test code = 9470962438) See_Comment [Automated messa ge] The system which generated this result transmitted reference range: 10*3/?L. The reference range was not used to interpret this result as normal/abnormal. GRAN MAT (NEUT) % (test code = 770-8) 81.0 % IMM GRAN % (test code = 3273562212) 1.20 % LYMPH % (test code = 736-9) 10.9 % MONO % (test code = 5905-5) 6.8 % EOS % (test code = 713-8) 0.0 % BASO % (test code = 706-2) 0.1 % GRAN MAT x10^3(ANC) (test code = 7191277861) 9.31 10*3/uL 1.99-6.95 H IMM GRAN x10^3 (test code = 0290004657) 0.14 10*3/uL 0.00-0.06 H LYMPH x10^3 (test code = 731-0) 1.25 10*3/uL 1.09-3.23 MONO x10^3 (test code = 742-7) 0.78 10*3/uL 0.36-1.02 EOS x10^3 (test code = 711-2) 0.06-0.53 L BASO x10^3 (test code = 704-7) 0.01-0.09 Lab Interpretation (test code = 24861-0) [facility] (19490)2023-12-23 04:53:26* Test Item Value Reference Range Interpretation Comme nts NA (test code = 7033466613) 135 mmol/L 135-145 K (test code = 4204856246) 3.2 mmol/L 3.5-5.0 L CL (test code = 6156033432) 104 mmol/L 98-108 CO2 TOTAL (test code = 3528702375) 23 mmol/L 23-31 AGAP (test code = 1118674600) 8 2-16 BUN (test code = 9938968961) 11 mg/dL 7-23 GLUCOSE (test code = 8042041516) 82 mg/dL 70-110 CREATININE (test code = 2160-0) 0.64 mg/dL 0.60-1.25 TOTAL BILI (test code = 2500371976) 0.5 mg/dL 0.1-1.1 CALCIUM (test code = 1135119276) 8.8 mg/dL 8.6-10.6 T PROTEIN (test code = 8499823183) 6.7 g/dL 6.3-8.2 ALBUMIN (test code = 8578072672) 4.1 g/dL 3.5-5.0 ALK PHOS (test code = 4504909674) 46 U/L 34-122 ALTv (test code = 1742-6) 21 U/L 5-50 AST(SGOT) (test code = 9698750112) 43 U/L 13-40 H eGFR (test code = 99999-1) 111.8 mL/min/1.73m2 CKD-EPI eGFR (2020). Assuming creatinine has been stable day-to-day for at least three months, the eGFR indicates Category G1 (>= 90 mL/min/1.73 m2) Lab Interpretation (test code = 31501-7) [facility]53[facility]26* Test Item Value Reference Range Interpretation Comme nts LIPASE (test code = 8527140041) 105 U/L 0-220 Lab Interpretation (test cod e = 31377-4) Normal [facility] [id number] 04:34:24* Test Item Value Reference Range Interpretation [...] 33.0 g/dL 31.2-35.0 RDW-SD (test code = 27711-6) 50.9 fL 38.5-51.6 RDW-CV (test code = 788-0) 13.7 % 12.1-15.4 PLT (test code = 777-3) 232 150-328 MPV (test code = 36826-8) 8.7 fL 9.8-13.0 L NRBC/100 WBC (test code = 3582012458) 0.0 0.0-10.0 NRBC x10^3 (test code = 7767394018) See_Comment [Automated messa ge] The system which generated this result transmitted reference range: 10*3/?L. The reference range was not used to interpret this result as normal/abnormal. GRAN MAT (NEUT) % (test code = 770-8) 58.8 % IMM GRAN % (test code = 1563860710) 0.90 % LYMPH % (test code = 736-9) 27.8 % MONO % (test code = 5905-5) 10.5 % EOS % (test code = 713-8) 1.3 % BASO % (test code = 706-2) 0.7 % GRAN MAT x10^3(ANC) (test code = 0504212168) 5.68 10*3/uL 1.99-6.95 IMM GRAN x10^3 (test code = 9438871158) 0.09 10*3/uL 0.00-0.06 H LYMPH x10^3 (test code = 731-0) 2.69 10*3/uL 1.09-3.23 MONO x10^3 (test code = 742-7) 1.02 10*3/uL 0.36-1.02 EOS x10^3 (test code = 711-2) 0.13 10*3/uL 0.06-0.53 BASO x10^3 (test code = 704-7) 0.07 10*3/uL 0.01-0.09 Lab Interpretation (test code = 75953-5) [facility] W [id number] 03:32:43Exam: CT Abdomen and Pelvis With Contrast, [...] acute osseous abnormality.Soft tissues: Small fat-containing inguinal hernias.[facility]24-[facility] 02:32:24* Test Item Value Reference Range Interpretation Comme nts ALCOHOL (test code = 4416902434) 117 mg/dL LOUISE (test code = LOUISE) <10 Hquthslf12-380 Toxic>100 Depression of ALTERATION TAILOR>[address] [facility]. Metabolic Panel (01849)2023-12-22 02:31:43* Test Item Value Reference Range Interpretation Comme nts NA (test code = 3417552561) 133 mmol/L 135-145 L K (test code = 2965881323) 3.3 mmol/L 3.5-5.0 L CL (test code = 5310757990) 102 mmol/L 98-108 CO2 TOTAL (test code = 5363421216) 25 mmol/L 23-31 AGAP (test code = 1240826455) 6 2-16 BUN (test code = 3824870162) 11 mg/dL 7-23 GLUCOSE (test code = 3312391667) 75 mg/dL 70-110 CREATININE (test code = 6379340344) 0.51 mg/dL 0.60-1.25 L TOTAL BILI (test code = 1665124567) 0.5 mg/dL 0.1-1.1 CALCIUM (test code = 6838743448) 8.9 mg/dL 8.6-10.6 T PROTEIN (test code = 9503255151) 7.2 g/dL 6.3-8.2 ALBUMIN (test code = 8013913654) 4.5 g/dL 3.5-5.0 ALK PHOS (test code = 7878552439) 46 U/L 34-122 ALTv (test code = 1742-6) 15 U/L 5-50 AST(SGOT) (test code = 0165054597) 24 U/L 13-40 eGFR (test code = 86931-2) 119.7 mL/min/1.73m2 CKD-EPI eGFR (2020). Assuming creatinine has been stable day-to-day for at least three months, the eGFR indicates Category G1 (>= 90 mL/min/1.73 m2) Lab Interpretation (test code = 71429-9) [facility]normal [facility]2024-[facility] 02:31:43* Test Item Value Reference Range Interpretation Comme nts LIPASE (test code = 1497880589) 121 U/L 0-220 Lab Interpretation (test cod e = 22168-1) Normal [facility] HospitalProthrombin Time / [id number] 02:21:02* Test Item Value Reference Range Interpretation Comme nts PROTIME PATIENT (test code = 5964-2) 10.5 10.1-12.6 INR (test code = 6301-6) 0.9 Normal INR <1.1; Warfarin Therapeutic range 2.0 to 3.0 or 2.5 to 3.5, depending upon the indications. Lab Interpretation (test code = 24945-1) Normal [facility] HospitalCbc with [id number] 02:14:04* Test Item Value Reference Range Interpretation [...] 34.0 g/dL 31.2-35.0 RDW-SD (test code = 65574-0) 49.1 fL 38.5-51.6 RDW-CV (test code = 788-0) 13.5 % 12.1-15.4 PLT (test code = 777-3) 260 150-328 MPV (test code = 04160-0) 8.7 fL 9.8-13.0 L NRBC/100 WBC (test code = 2296561200) 0.0 0.0-10.0 NRBC x10^3 (test code = 0906070118) See_Comment [Automated messa ge] The system which generated this result transmitted reference range: 10*3/?L. The reference range was not used to interpret this result as normal/abnormal. GRAN MAT (NEUT) % (test code = 770-8) 64.3 % IMM GRAN % (test code = 4535781755) 0.90 % LYMPH % (test code = 736-9) 24.2 % MONO % (test code = 5905-5) 9.1 % EOS % (test code = 713-8) 0.7 % BASO % (test code = 706-2) 0.8 % GRAN MAT x10^3(ANC) (test code = 6905838623) 8.73 10*3/uL 1.99-6.95 H IMM GRAN x10^3 (test code = 1883733749) 0.12 10*3/uL 0.00-0.06 H LYMPH x10^3 (test code = 731-0) 3.28 10*3/uL 1.09-3.23 H MONO x10^3 (test code = 742-7) 1.23 10*3/uL 0.36-1.02 H EOS x10^3 (test code = 711-2) 0.10 10*3/uL 0.06-0.53 BASO x10^3 (test code = 704-7) 0.11 10*3/uL 0.01-0.09 H Lab Interpretation (test code = 55209-8) Abnormal [facility] [id number] 10:16:22* Test Item Value Reference Range Interpretation Comments TROPONIN I (test code = 3182221510) 0.007 ng/mL See_Comment [Automated message] The system [...] of biotin. Lab Interpretation (test code = 06810-8) Normal [facility] HospitalN-TERMINAL [id number] 10:13:01* Test Item Value Reference Range Interpretation Comme nts NT-proBNP (test code = 0293688254) 52 pg/mL See_Comment [Automated message] The system which generated this result transmitted reference range: <=125. The reference range was not used to interpret this result as normal/abnormal. LOUISE (test code = LOUISE) Biotin has been reported to cause a negative bias, interpret results relative to patient's use of biotin. Lab Interpretation (test code = 65496-9) [facility]OLIC [facility] (64143)2022-02-20 10:04:02* Test Item Value Reference Range Interpretation Comme nts NA (test code = 0019367586) 137 mmol/L 135-145 K (test code = 8881901374) 3.6 mmol/L 3.5-5.0 CL (test code = 3383753855) 99 mmol/L 98-108 CO2 TOTAL (test code = 7147791731) 25 mmol/L 23-31 AGAP (test code = 4107308481) 2-16 BUN (test code = 3588047334) 6 mg/dL 7-23 L GLUCOSE (test code = 1446645826) 88 mg/dL 70-110 CREATININE (test code = 7130104402) 0.55 mg/dL 0.60-1.25 L TOTAL BILI (test code = 3060503228) 0.8 mg/dL 0.1-1.1 CALCIUM (test code = 9902974258) 8.9 mg/dL 8.6-10.6 T PROTEIN (test code = 1594193586) 7.5 g/dL 6.3-8.2 ALBUMIN (test code = 8161080364) 4.8 g/dL 3.5-5.0 ALK PHOS (test code = 6744700093) 113 U/L 34-122 ALTv (test code = 1742-6) 84 U/L 5-50 H AST(SGOT) (test code = 0518716946) 107 U/L 13-40 H eGFR (test code = 2213118195) mL/min/1.73m2 LOUISE (test code = LOUISE) Association [...] imaging tests). Lab Interpretation (test code = 22900-8) [facility]normal [facility]LIP[facility], [id number] 10:03:21* Test Item Value Reference Range Interpretation Comme nts LIPASE (test code = 7889455512) 193 U/L 0-220 Lab Interpretation (test cod e = 08893-0) Normal [facility] WITH [id number] 09:39:17* Test Item Value Reference Range Interpretation [...] g/dL 31.2-35.0 H RDW-SD (test code = 14648-7) 44.4 fL 38.5-51.6 RDW-CV (test code = 788-0) 11.9 % 12.1-15.4 L PLT (test code = 777-3) See_Comment [Automated messa ge] The system which generated this result transmitted reference range: 150 - 328 10*3/?L. The reference range was not used to interpret this result as normal/abnormal. MPV (test code = 84922-7) 9.2 fL 9.8-13.0 L NRBC/100 WBC (test code = 1091063707) See_Comment [Automated [employer] ssage] The system which generated this result transmitted reference range: 0.0 - 10.0 /100 WBCs. The reference range was not used to interpret this result as normal/abnormal. NRBC x10^3 (test code = 2556055891) <0.01 See_Comment [Automated messa ge] The system which generated this result transmitted reference range: 10*3/?L. The reference range was not used to interpret this result as normal/abnormal. GRAN MAT (NEUT) % (test code = 770-8) 69.9 % IMM GRAN % (test code = 8489822007) 1.50 % LYMPH % (test code = 736-9) 18.9 % MONO % (test code = 5905-5) 7.0 % EOS % (test code = 713-8) 1.9 % BASO % (test code = 706-2) 0.8 % GRAN MAT x10^3(ANC) (test code = 3376517760) 7.15 10*3/uL 1.99-6.95 H IMM GRAN x10^3 (test code = 2731188842) 0.15 10*3/uL 0.00-0.06 H LYMPH x10^3 (test code = 731-0) 1.93 10*3/uL 1.09-3.23 MONO x10^3 (test code = 742-7) 0.72 10*3/uL 0.36-1.02 EOS x10^3 (test code = 711-2) 0.19 10*3/uL 0.06-0.53 BASO x10^3 (test code = 704-7) 0.08 10*3/uL 0.01-0.09 Lab Interpretation (test code = 17749-6) Abnormal [facility] History and Physical Notes Date/Time Note [...] during that time he also went to alliance party with some friends and did cocaine denies [...] 100 mg, 100 mg, Oral, DAILY, Julien Makrs DO, 100 mg at 07/18/24 1015 Objective: [...] full understanding, Time discussed 3 minutes [place] 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 ERP notified. Pt counseled to remain, risks of leaving AMA including discussed with pt. Pt continued to decline further ER evaluation at this time. AMA papers signed, witnessed, and placed on patient's chart. Pt left ambulatory, No ataxia noted, GCS 15, A&Ox4. T [facility] 2024-07-23 11:12:45 Pt to ED Via POV [...] O2 use at home. Briseida Sears RN [facility] 2024-07-20 15:47:10 Patient called me into the [...] and that he would have to leave [place]. Patient chose to leave [place], paperwork was signed. Patient was polite and very thankful about the care received. Rosa Whitt RN [facility] 2024-07-20 00:11:46 Problem: Falls, Risk of Goal: [...] Outcome: Progressing as expected Luis Bailey RN [facility] 2024-07-19 11:45:29 Problem: Falls, Risk of Goal: [...] Hemodynamically stable Outcome: Progressing as expected T [facility] 2024-07-18 20:28:17 Problem: Falls, Risk of Goal: [...] Progressing as expected ERT Isabela Mishra RN [facility] 2024-07-18 18:12:01 Problem: Falls, Risk of Goal: [...] Progressing as expected ERT Joni Bailey RN [facility] 2024-07-18 09:22:44 Patient admitted to IMU for diagnosis of COPD, right lower lobe PNA, and alcohol dependence and withdrawal. Patient agrees to admission, discussed plan of care with patient. Patient is awake, alert, oriented, resp reg unlabored, color appropriate for race, PIVs intact with NS infusing. No adverse reaction to medications administered while in ED. Belongings with patient to unit. HA Canela RN [facility] 2024-07-18 09:22:11 Nurse Report Report given to BRIGETTE Quinones. Chief complaint, assessment findings, and orders reviewed. Plan of care discussed with both nurses. Patient verbalized understanding for admission. Raquel M Canela, RN [facility] 2024-07-18 08:25:19 Patient states he last did cocaine 2 days ago and has been drinking since he was 3 years old. [facility] 2024-07-18 08:24:09 Patient provided urinal and informed that a urine sample is needed. [facility] 2024-07-18 07:12:28 Associated Order(s): EKG-12 Lead ROUTINE ONCE; Critical Care Pre-Procedure Diagnose(s): Dyspnea, unspecified type Post-Procedure Diagnose(s): Dyspnea, unspecified type [facility] ED Transfer of Care Note. Off-going Physician:Maynor [...] components within normal limits COMP. METABOLIC PANEL (70121) - Abnormal; Notable for the following components: [...] <10 Negative 50-100 Toxic >100 Depression of ALTERATION TAILOR >400 Fatalities Reported URINE DRUG (IMMUNOASSAY) - [...] ED Physician in the absence of a senior java web application developer: yes Previous ECG: Previous ECG: Compared to [...] of pain, treatment of underlying cause) - Gcjpjasx-cztm-nakxdcjj or omva-orzb-tfncpbtj patient (Pneumonia Severity Index class IV or V, or CURB-65 score of 3 or greater) PSI CalculatorCURB-65 Calculator AdmissionCare documentation entered by: Shay Stinson [facility] [employer], 28th edition, Copyright ? 2023 [facility] [employer] [facility] All Rights Reserved. 8569-14-00N37:49:27-05:00 Disposition: Admitted to IMU Social Determinants of Health: None ED Disposition ED Disposition Admit - IMCU Condition Stable Comment -- T [facility] 2024-07-18 06:21:14 Patient provided urinal for urine sample. [facility] 2024-07-18 06:05:31 Patient arrived ambulatory to ED c/o SOB that has worsened since last here. Patient states smoking cigarettes and ETOH on board. Patient states using his home O2 all night tonight. HA Gomez RN [facility] 2024-07-18 06:01:00 EMERGENCY DEPARTMENT ENCOUNTER [facility] Patient Name: Randy Grimm Date of : 1970 54 year old Exam Room:TR8/TR8 Primary Care Physician: [facility] Patient Escorted by: Self [9] Mode of Arrival: Personal means [1] EMS Treatment Prior to ED Arrival: PRODUCE MANAGER treatment: Medication (comment) PRODUCE MANAGER treatment comments: BC powder ED Events Date/Time [...] ETHANOL ALCOHOL 91 mg/dL COMP. METABOLIC PANEL (49302) TROPONIN I N-TERMINAL PRO-BNP URINE DRUG (IMMUNOASSAY) [...] VW CBC WITH DIFF COMP. METABOLIC PANEL (50663) TROPONIN I N-TERMINAL PRO-BNP URINE DRUG (IMMUNOASSAY) - COMPREHENSIVE DRUG SCREEN W/O REFLEX ETHANOL No orders of the defined types were placed in this encounter. Procedures EKG Time 0610 Rate 107 Sinus tachycadia Incomplete RBBB Non specific ST T changes Abnormal EKG [facility] Patient was evaluated for an emergency medical [...] is not hypoxic. Interpreted. Reassessment:unchanged Communication with business management consultant: None. Limitations to patient care and [...] on file Blu Mcguire Jr., MD Clinical Irb Compliance Coordinator [facility] Emergency Department Tubular Labson Dictation Software is used frequently and may produce errors. Promptly contact for obvious discrepancies. Blu Mcguire MD 07/18/24704 T [employer] EMERGENCY PHYSICIAN STAFF [facility] 2024-07-18 06:01:00 AdmissionCare Guideline: Pneumonia - INPT, [...] of pain, treatment of underlying cause) - Shcxalgi-cbkv-zlhqoyyz or nakj-ielp-aithixia patient (Pneumonia Severity Index class IV or V, or CURB-65 score of 3 or greater) PSI CalculatorCURB-65 Calculator AdmissionCare documentation entered by: Shay Stinson [facility], 28 edition, Copyright ? 2023 [facility] [employer] [facility] All Rights Reserved. 2071-05-53K87:49:27-05:00 [facility] 2024-07-17 20:39:59 Pt took monitors off himself and stormed out of ED after being told no pain medications were ordered at this time. Walked out with IV still in arm. [facility] PD notified, pt unable to be located by officer. PD called for welfare check (pt [place] resident) Arlene Fitch RN [facility] 2024-07-17 19:50:53 Patient arrived ambulatory to ED c/o SOB that started two days ago. Patient states "smoking $800 of crack cocaine the day before." Patient also states taking multiple BC powders. 91% RA. Placed on 4L NC. Sreedhar Gomez RN [facility] 2024-07-17 19:39:00 Images from the original note were not included. EMERGENCY DEPARTMENT ENCOUNTER [facility] Patient Name: Randy Grimm Date of : 1970 54 year old Exam Room:TR8/TR8 Primary Care Physician: [facility] Patient Escorted by: Self [9] Mode of Arrival: Personal means [1] EMS Treatment Prior to ED Arrival: PRODUCE MANAGER treatment: Medication (comment) PRODUCE MANAGER treatment comments: See triage note ED Events [...] 0.01 - 0.09 10*3/uL COMP. METABOLIC PANEL (95148) - Abnormal NA 138 135 - 145 [...] RIGHT CBC WITH DIFF COMP. METABOLIC PANEL (30410) TROPONIN I N-TERMINAL PRO-BNP Ethanol URINE DRUG (IMMUNOASSAY) - COMPREHENSIVE DRUG SCREEN W/O REFLEX Orders Placed This Encounter Medications ipratropium-albuteroL (DUONEB) 0.5 mg-3 mg(2.5 mg base)/3 mL nebulizer solution 3 mL Procedures EKG Time 1958 Rate 109 Sinus tachycardia Anna normal Intervals normal No acute ischemia MDM [...] components within normal limits COMP. METABOLIC PANEL (36926) - Abnormal; Notable for the following components: [...] is not hypoxic. Interpreted. Reassessment:stable Communication with business management consultant: None. Limitations to patient care and [...] on file Blu Mcguire Jr., MD Clinical Irb Compliance Coordinator [facility] Emergency Department [employer] Dictation Software is used frequently and may produce errors. Promptly contact for obvious discrepancies. Blu Mcguire MD 07/17/242143 T [facility] 08:34:34 Patient here for a mass on his forehead, states it has been there for year and patient attempted to open it with a needle. Valentino Cage [facility]Rrgzoy9370-18-24 21:43:52 No answer in lobby. Angy Turner [place] 711524-04-10 21:42:10 Pt's blood pressure cuff and pulse ox found lying on chair. Called for patient in lobby 2 times, no answer. No one in lobby. Sierra Samaniego [place] 711524-04-10 21:41:09 Pt not in lobby or in room. No answer in lobby. [place] 627624-04-10 21:14:29 Pt not in FT01- and no answer in lobby. T [place] 627624-04-10 20:48:50 Pt arrives ambulatory to ED c/o SOB, right upper abdominal pain, and left leg and hip pain. Pt states that he has been on prednisone for about 5 yrs which had given him osteoporosis which is causing his leg pain. Reports hx of COPD, o2 is generally @ 91 he says. Leah Lizama [facility] CenterTyadhr5478-25-10 21:37:56 Pt left AMA Kylie Foster [facility] CenterSppijt8537-34-24 21:32:00 Patient leaving AMA after self removing [...] ambulatory with steady gait, appears in NAD [place] 795114-04-01 20:54:38 Pt states he uses O2 at home, portable O2 is broken [place] 795114-04-01 20:51:11 Pt ambulates with cane [place] 795114-04-01 20:43:13 CC: Pt arrives SOB after leaving [...] 3 BC powders and drank 3 beers." RA [facility] Leah King [facility] CenterHeqgmz6999-77-63 17:04:05 Patient walked to the nurses station [...] department with a steady gait. Allison Zhang [place] 711524-04-01 14:23:02 Pt ambulates with a cane Kylie Foster [facility] CenterVbmmtu9980-19-34 14:13:15 Pt has taken 8-packets of BC [...] that helps." Face is flushed. Hali Aviles [place] 711524-03-07 06:16:25 Pt given printed and verbal discharge [...] to follow up with pcp and or senior java web application developer Advised to seek medical attention for new/prolonged/worsening of symptoms, No adverse reaction to meds given in ER noted upon discharge PIV d'cd, dressing to site, catheter in tact. Awake, alert oriented, resp reg unlabored, skin w/d, pt leaving in no apparent distress, [facility]2024-03-07 04:49:43 CC: "My COPD is acting up [...] difficulty, amb with steady gait ON King [facility]bleMitwmr5620-91-51 04:43:00 Associated Order(s): EKG-12 Lead ROUTINE ONCE Pre-Procedure Diagnose(s): Chest pain, unspecified type Post-Procedure Diagnose(s): Chest pain, unspecified type [facility] Emergency Department Note Patient Name: Randy Grimm Date of : 1970 53 year old male Treatment Room: [facility] Primary Care Physician: Adrianna Michaels Patient Escorted by: Family [5] Mode of Arrival: Personal means [1] EMS Treatment Prior to ED Arrival: PRODUCE MANAGER treatment: NTG PRODUCE MANAGER treatment comments: 0.4 mg SL taken PRODUCE MANAGER, no releif Travel and Exposure Screening: Symptoms [...] Lab Results: Lab Results COMP. METABOLIC PANEL (55200) - Abnormal Result Value Ref Range NA [...] 1 VW TROPONIN I COMP. METABOLIC PANEL (66038) LIPASE, SERUM CBC WITH DIFF N-Terminal Pro-Bnp Ethanol COVID-19 (ID NOW TESTING) Lab Only COVID Interpretation O2 Per Protocol Orders Placed This Encounter Medications morpHINE (4 mg/mL) injection 4 mg ondansetron (ZOFRAN (PF)) injection 4 mg ipratropium-albuteroL (DUONEB) 0.5 mg-3 mg(2.5 mg base)/3 mL nebulizer solution 3 mL First Provider Eval: ED Events Date/Time Event User Comments 01/14/24 0510 Medical Screening Begins JCA NAVARRO MD -- 01/14/24 05 First Provider Evaluation JAC NAVARRO MD -- ED COURSE Diagnosis/Impression as of 01/14/24 0605 Chest pain, unspecified type Bronchitis Procedures: EKG-12 Lead ROUTINE ONCE Date/Time: 01/14/2024 5:24 AM Performed by: Jac Navarro MD Authorized by: Jac Navarro MD ECG interpreted by ED Physician in the absence of a senior java web application developer: yes Previous ECG: Previous ECG: Compared to [...] signed by: Jac Navarro MD 01/14/24 0600 [facility]2024-02-13 23:12:16 Pt given printed and verbal discharge [...] with steady gait, in no apparent distress, [facility] Mary Magaña [facility]NK[facility]bleRttxqn5649-96-99 21:41:55 Pt arrives ambulatory to ED reporting bleeding with stools and 10/10 abdominal pain. States he was here last night but had to leave before receiving results d/t having to work. Says the pain became worse so he came back in. FURNACE OPERATOR Leah Lizama [facility] CenterFzcmgc0252-67-30 21:31:00 Patient leaving AMA,discussed risks of leaving [...] with steady gait, appears in no distress. FURNACE OPERATOR Mary Magaña [place] 711524-02-12 21:30:00 Pt wished to leave AMA. Pt states " yall were wonderful but 3am come real early." [facility]2024-02-12 21:26:22 Pt asking to go outside and smoke, wants to go home and eat. Pt educated on risks of leaving AMA. Provider informed pt is in pain. [facility] Leah King [place] 711524-02-12 19:31:50 Pt arrived ambulatory with complaints of bright red rectal bleeding and generalized abdominal pain this afternoon. Pt states his stool was normal consistency but continuous bright red blood. Denies this happening before. Pt is an alcoholic, had 2 beer PRODUCE MANAGER. States he vomits all the time but not something new today. ON Esqueda [place] 01121-01-02 20:13:39 Pt requesting to leave AMA. ERP notified. Pt counseled to remain, risks of leaving AMA including discussed with pt. Pt continued to decline further ER evaluation at this time. AMA papers signed, witnessed, and placed on patient's chart. Pt left ambulatory. VS stable, no ataxia noted, GCS 15, A&Ox4. FURNACE OPERATOR Briseida Medrano [facility] CenterDuegsn8011-51-08 19:30:29 Patient arrived to ED c/o SOB and COPD exacerbation. Symptoms started this morning. Patient wears 3L NC at home. Patient is a smoker. Patient states having the chills, diarrhea, and vomiting. States having sharp pains in chest from coughing. FURNACE OPERATOR Sreedhar Gomez [facility]
--- NOTE | 2024-09-20 21:11 | RAD REPORT ---
EXAMINATION: ONE VIEW CHEST XR CLINICAL INDICATION: CHEST PAIN TECHNIQUE: Frontal chest projection is submitted. Examination is limited by patient positioning and t echnique. COMPARISON: 07/17/2024 FINDINGS: The lungs are well inflated and clear. The heart is normal in size. No displaced fractures identified . IMPRESSION: No acute intrathoracic abnormalities.
--- NOTE | 2024-09-20 21:55 | ER ---
Nurse's Notes [facility] Name: Randy Briones Age: 54 yrs Sex: Male : 1970 Arrival Date: 09/20/2024 Time: 20:17 Bed DX3 Private MD: Diagnosis: COPD/ Chronic obstructive pulmonary disease with (acute) exacerbation Presentation: 09/20 20:31 Chief complaint: Patient states: SHORTNESS OF BREATH AND BACK PAIN ONSET THIS MORNING. cm10 Coronavirus screen: Client denies travel out of the [place] in the last 14 days. Ebola Screen: Patient denies travel to an Ebola-affected area in the 21 days before illness onset. Initial Sepsis Screen: Does the patient meet any 2 criteria? RR > 20 per min. Does the patient have a suspected source of infection? No. Patient's initial sepsis screen is negative. Risk Assessment: Do you want to hurt yourself or someone else? Patient reports no desire to harm self or others. Onset of symptoms was September 20, 2024. 20:31 Method Of Arrival: Ambulatory cm10 20:31 Acuity: CANDACE 2 cm10 Triage Assessment: 20:33 General: Appears in no apparent distress. uncomfortable, Behavior is calm, cooperative. cm10 Neuro: No deficits noted. Level of Consciousness is awake, alert, obeys commands, Oriented to person, place, time, situation, Appropriate for age. Respiratory: No deficits noted. Reports shortness of breath Onset: The symptoms/episode began/occurred this morning, the patient has moderate shortness of breath. Historical: - Allergies: 20:32 Lisinopril; cm10 - PMHx: 20:32 Alcoholism; COPD; Hepatitis B (Hypertension); home 02 3LNC PRN; Hypertension; cm10 Osteoporosis; - PSHx: 20:32 Amputation of left index finger; cm10 - Immunization history:: Adult Immunizations up to date. - Infectious Disease History:: Denies. - Social history:: Smoking status: Patient reports the use of cigarette tobacco products, smokes one pack cigarettes per day. - Family history:: not pertinent. Assessment: 22:16 General: Pt left prior to treatment. vc1 Vital Signs: 20:31 BP 157 / 108; Pulse 88; Resp 24; Temp 96.9(TE); Pulse Ox 99% on R/A; Weight 79.38 kg; cm10 Height 5 ft. 4 in. ; Pain 08/18; 20:31 Body Mass Index 30.04 (79.38 kg, 162.56 cm) cm10 20:31 Pain Scale: Adult cm10 [place] Coma Score: 09/21 20:28 Eye Response: spontaneous(4). Motor Response: obeys commands(6). Verbal Response: sp4 oriented(5). Total: 15. ED Course: 09/20 20:19 Patient arrived in ED. ra3 20:32 Triage completed. cm10 20:33 Arm band placed on left wrist. Patient placed in an exam room. cm10 20:44 Jose Crews MD is Attending Physician. sp4 21:08 XRAY Chest (1 view) In Process Unspecified. EDMS Administered Medications: No medications were administered Outcome: 21:55 Discharge ordered by . sp4 22:16 Eloped eloped from diagnostic chair vc1 22:16 Patient left the ED. vc1 Signatures: Dispatcher [employer] EDMS Piper Humphrey, RN RN vc1 Jose Crews MD MD sp4 Padmini Foster RN RN cm10 Bertha Phillips ra3
--- NOTE | 2024-09-20 21:55 | EDPHYS ---
Physician Documentation [facility] [place], [place] Name: Randy Briones Age: 54 yrs Sex: Male : 1970 Arrival Date: 09/20/2024 Time: 20:17 Bed DX3 Private MD: ED Physician Jose Crews HPI: 09/20 20:44 This 54 yrs old Male presents to ER via Ambulatory with complaints of sp4 Breathing Difficulty. 09/21 20:28 Patient is a very pleasant gentleman who presents with complaint of shortness of breath sp4 and wheezing.. Historical: - Allergies: 09/20 20:32 Lisinopril; cm10 - PMHx: 20:32 Alcoholism; COPD; Hepatitis B (Hypertension); home 02 3LNC PRN; Hypertension; cm10 Osteoporosis; - PSHx: 20:32 Amputation of left index finger; cm10 - Immunization history:: Adult Immunizations up to date. - Infectious Disease History:: Denies. - Social history:: Smoking status: Patient reports the use of cigarette tobacco products, smokes one pack cigarettes per day. - Family history:: not pertinent. ROS: 09/21 20:28 Constitutional: Negative for fever, chills, and weight loss, positive for shortness sp4 of breath and wheezing All other systems are negative, Exam: 20:28 Constitutional: This is a well developed, well nourished patient who is awake, alert, sp4 dyspneic appearing but nontoxic Head/Face: Normocephalic, atraumatic. Eyes: Pupils equal round and reactive to light, extra-ocular motions intact. Lids and lashes normal. Conjunctiva and sclera are not injected. Cornea within normal limits. Periorbital areas with no swelling, redness, or edema. ENT: Nares patent. No nasal discharge, no septal abnormalities noted. Tympanic membranes are normal and external auditory canals are clear. Oropharynx with no redness, swelling, or masses, exudates, or evidence of obstruction, uvula midline. Mucous membranes moist. Neck: Trachea midline, no thyromegaly or masses palpated, and no cervical lymphadenopathy. Supple, full range of motion without nuchal rigidity, or vertebral point tenderness. Chest/axilla: Normal chest wall appearance and motion. Nontender with no deformity. No lesions are appreciated. Cardiovascular: Regular rate and rhythm with a normal S1 and S2. No gallops, murmurs, or rubs. Normal PMI, no JVD. No pulse deficits. Respiratory: Lungs have equal breath sounds bilaterally, positive for bilateral wheezing, positive for dyspnea tachypnea without retractions. Abdomen/GI: Soft, with normal bowel sounds. No distension or tympany. No guarding or rebound. No evidence of tenderness throughout. Back: No spinal tenderness. No costovertebral tenderness. Skin: Warm, dry with normal turgor. Normal color with no rashes, no lesions, and no evidence of cellulitis. MS/ Extremity: Pulses equal, no cyanosis. Neurovascular intact. Full, normal range of motion. Neuro: Awake and alert, GCS 15, oriented to person, place, time, and situation. Cranial nerves II-XII grossly intact. Motor strength 5/5 in all extremities. Sensory grossly intact. Psych: Awake, alert, with orientation to person, place and time. Behavior, mood, and affect are within normal limits Vital Signs: 09/20 20:31 BP 157 / 108; Pulse 88; Resp 24; Temp 96.9(TE); Pulse Ox 99% on R/A; Weight 79.38 kg; cm10 Height 5 ft. 4 in. ; Pain 10/10; 20:31 Body Mass Index 30.04 (79.38 kg, 162.56 cm) cm10 20:31 Pain Scale: Adult cm10 [place] Coma Score: 09/21 20:28 Eye Response: spontaneous(4). Motor Response: obeys commands(6). Verbal Response: sp4 oriented(5). Total: 15. MDM: 09/20 20:48 Medical Screening Exam initiated sp4 21:55 ED course: Informed discharge was provided. . sp4 09/21 20:28 Differential diagnosis: Anxiety Reaction asthma, Bronchitis CHF exacerbation, Chronic sp4 Obstructive Pulmonary Disease pneumonia. Data reviewed: vital signs. 20:36 ED course: Chest x-ray has revealed clear lungs. Patient opted not to pursue workup sp4 today and requested departure from ER. Patient was given informed discharge. Hemodynamically stable on departure. . 09/20 20:44 Order name: XRAY Chest (1 view); Complete Time: 21:54 sp4 09/20 20:44 Order name: Cardiac monitoring sp4 09/20 20:44 Order name: EKG - Nurse/Tech sp4 09/20 20:44 Order name: IV Saline Lock sp4 09/20 20:44 Order name: Labs collected and sent sp4 09/20 20:44 Order name: O2 Per Protocol sp4 09/20 20:44 Order name: O2 Sat Monitoring sp4 Administered Medications: No medications were administered Disposition Summary: 09/20/24 21:55 Discharge Ordered Notes: Location: Home sp4 Problem: new sp4 Symptoms: have improved sp4 Condition: Stable sp4 Diagnosis - COPD/ Chronic obstructive pulmonary disease with (acute) exacerbation sp4 Followup: sp4 - With: Private Physician - When: 7 - 10 days - Reason: Recheck today's complaints Discharge Instructions: - Discharge Summary Sheet sp4 - Chronic Obstructive Pulmonary Disease sp4 Forms: - Patient Portal Instructions sp4 Signatures: Dispatcher [employer] EDJose Gregorio MD MD sp4 Padmini Foster RN RN cm10 Corrections: (The following items were deleted from the chart) 09/20 20:45 20:45 Chest Single View+[email or web address] ordered. EDMS EDMS
[2024-09-20 22:37] VITALS: BP 157/108; TEMP 96.9; O2SAT 99
== END 2024-09-20 22:16 | disposition home or self-care (01) ==
LOC: ER 20:17
DX: J44.1 Chronic obstructive pulmonary disease with (acute) exacerbation (principal); Z99.81 Dependence on supplemental oxygen; I10 Essential (primary) hypertension; F10.20 Alcohol dependence, uncomplicated; F17.210 Nicotine dependence, cigarettes, uncomplicated
CPT/HCPCS: 71045

== ENCOUNTER 2024-10-23 11:49 | Emergency (ER) | payer OTHER ==
--- OUTSIDE RECORDS SUMMARY | 2024-10-23 11:54 | XMS REPORT | Continuity of Care Document ---
Author Name Unknown Address [address] [facility] [address] [place] [address] [facility] Address [address] [facility] [address] [place] [address] Care Team Providers Care International Controller Name Role Phone [facility] Primary Care Physician YARY CAMP Attending Clinician Unavailable YARY CAMP Attending Clinician Unavailable Yary Camp NP Attending Clinician [phone] JULIEN MARKS Attending Clinician Unavailable Blu Mcguire MD Attending Clinician [phone] Shay Stinson MD Attending Clinician [phone] Julien Marks DO Attending Clinician [phone] BLU MCGUIRE Attending Clinician Unavailable BLU MCGUIRE Attending Clinician Unavailable WENDY BROWNLEE Attending Clinician UnaMYRNA Bernard Attending Clinician Unavailable DARIEN LOBO Attending Clinician Unavailable MINNA ORTA Attending Clinician Unavailab SHARATH Isbell Attending Clinician Unavailable TUNDE QUINTANILLA Attending Clinician Unavailable KEISHA DAVENPORT Attending Clinician Unauriah Davenport MD, Keisha Jackson Attending Clinician + Christina Victoria Attending Clinician [phone] JAC NAVARRO Attending Clinician Unavailable Jac Navarro MD Attending Clinician [phone] CAILIN ROWE Attending Clinician Unavailab QUENTIN Boothe Attending Clinician Unavailable Quentin Maciel DO Attending Clinician [phone] CHRISTY HOLLIDAY Attending Clinician Unavailable Christy Holliday MD Attending Clinician [phone] [facility]IA [facility] Attending Clinicia n Unavailable DENISE SUNG Attending Clinician Unavailable KARLEY ADAMS Attending Clinician Unavailable JULIEN MARKS Admitting Clinician Unavailable Julien Marks DO Admitting Clinician [phone] BLU MCGUIRE Admitting Clinician Unavailable JAC NAVARRO Admitting Clinician Unavailable QUENTIN MACIEL Admitting Clinician Unavailable CHRISTY HOLLIDAY Admitting Clinician Unavailable Payers Payer Name Policy Type Policy Number Effective Date Expirati on Date Source HIM [facility] O [id number] 2024 00:00:00 [facility] VINOD LEE COPAY FOCUS 9 [id number] 2024 00:00:00 [employer] [id number] 2023 00:00:00 [employer] 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 DIRECT[employer] 94 [place] 9 [id number] 2023 00:00:00 Problems Condition Name Condition Details Condition Category Status Onset Date Resolution Date Last Treatment Date Treating Clinician Comments Source Community acquired pneumonia of right lower lobe of lung Community acquired pneumonia of right lower lobe of lung Disease Active 07-18 00:00: 00 [facility] Acute exacerbati on of chronic obstructiv e pulmonary disease (COPD) Acute exacerbati on of chronic obstructiv e pulmonary disease (COPD) Disease Active 03-24 00:00: 00 [facility] Obesity (BMI 30-39.9) Obesity (BMI 30-39.9) Disease Active 03-24 00:00: 00 [facility] Allergies, Adverse Reactions, Alerts Allergy Name Allergy Type Status Severity Reaction(s) Onset Date Inactive Date Treating Clinician Comments Source Lisinopr il Propensi ty to adverse reaction s Active Anaphylaxis 03-24 00:00: 00 [facility] LISINOPR [place] DRUG INGREDI Active Anaphylaxis 03-24 00:00: 00 [facility] Social History Social Habit Start Date Stop Date Quantity Comments Source History of tobacco use Smokes tobacco daily [facility] intake 2024-07-23 00:00:00 2024-07-23 00:00:00 4.29 /d [facility] History of Social function 2024-07-19 00:00:00 2024-07-19 00:00:00 [facility] Tobacco use and exposure 2024-07-18 00:00:00 2024-07-18 00:00:00 User of smokeless tobacco [facility] Tobacco Comment 2024-07-18 00:00:00 2024-07-18 00:00:00 trying to quit [facility] Alcohol Comment 2024-07-18 00:00:00 2024-07-18 00:00:00 2 1/2 cases daily [facility] Alcohol intake 2024-02-08 00:00:00 2024-02-08 00:00:00 4.29 /d [facility] Exposure to SARS-CoV-2 (event) 2022-10-04 00:00:00 2022-10-14 10:25:00 Not sure [facility] Sex assigned at 1970 00:00:00 1970 00:00:00 [facility] Smoking Status Start Date Stop Date Source Smokes tobacco daily 2024-07-18 00:00:00 [facility] Medications Ordered Medication Name Filled Medication Name Start Date Stop Date Current Medication? Ordering Clinician Indication Dosage Frequency Signature (SIG) Comments Components Source ketorolac (TORADOL) injection 30 mg 07-23 19:30: 00 07-23 18:21 :00 No 30mg 30 mg, Slow IV Push, ONCE, 1 dose, On 07/23/24 at 1430, Routine [facility] pantoprazol e (PROTONIX) injection 40 mg 07-23 17:30: 00 07-23 17:03 :00 No 40mg 40 mg, Slow IV Push, ONCE, 1 dose, On 07/23/24 at 1230 [facility] ipratropium -albuteroL (DUONEB) 0.5 mg-3 mg(2.5 mg base)/3 mL nebulizer solution 3 mL 07-23 17:15: 00 07-23 17:26 :00 No 3mL 3 mL, Inhalation , ONCE NOW, 1 dose, On 07/23/24 at 1215, Routine [facility] methylpredn isolone sod succ (SOLU-MEDRO L) injection 125 mg 07-23 17:15: 00 07-23 17:01 :00 No 125mg 125 mg, Intravenou s, ONCE, 1 dose, On 07/23/24 at 1215, 2 mL [facility] NaCl 0.9% (NS) bolus infusion 1,000 mL 07-23 17:15: 00 07-23 17:30 :00 No 1000mL at 999 mL/hr, 1,000 mL, IV Infusion, ONCE, 1 dose, On 07/23/24 at 1215, LAURYN [facility] piperacilli n-tazobacta m (ZOSYN) 3.375 g in NaCl 0.9% (NS) 100 mL MINI-BAG 07-23 16:45: 00 07-23 17:40 :00 No 3.375g 3.375 g, IV Piggyback, ONCE, 1 dose, On 07/23/24 at 1145, Administer over 30 Minutes, 100 mL, Reason for Anti-Infec tive: Documented Infection, Documented Infection Site: Respirator y, Duration of Therapy: Once (ED) [facility] oxazepam (SERAX) capsule 15 mg 07-20 19:50: 52 07-21 19:59 :00 No 15mg 15 mg, Oral, Q12H TAPER, 2 doses, First dose on Thu07/20/24 at 1500, Last dose on Thu07/21/24 at 0300, [facility]ine [facility] levalbutero l (XOPENEX) nebulizer solution 0.63 mg 07-20 19:00: 00 Yes .63mg 0.63 mg, Inhalation , TID, First dose on Thu07/20/24 at 1400, Until Discontinu ed, [facility] spironolact one (ALDACTONE) tablet 25 mg 07-20 14:00: 00 Yes 25mg 25 mg, Oral, DAILY, First dose on Thu07/20/24 at 0900, Until Discontinu ed, Routine [facility] Potassium Bicarb-Citr ic Acid (EFFER-K) effervescen t tablet 40 mEq 07-20 13:00: 00 07-21 12:59 :00 No 40meq 40 mEq, Oral, BID, 2 doses, First dose on Thu07/20/24 at 0800, Last dose on Thu07/20/24 at 2000, Routine [facility] amLODIPine (NORVASC) tablet 10 mg 07-19 22:30: 00 Yes 10mg 10 mg, Oral, DAILY, First dose on Thu07/19/24 at 1730, Until Discontinu ed, Routine [facility] hydralAZINE (APRESOLINE ) injection 10 mg 07-19 22:16: 33 Yes 10mg 10 mg, Slow IV Push, Q6HPRN, Starting on Thu07/19/24 at 1716, Until Discontinu ed, Routine, DBP=>100; SBP=>160, For SBP > 160 [facility] pantoprazol e (PROTONIX) injection 40 mg 07-19 21:30: 00 Yes 40mg 40 mg, Slow IV Push, Q24H, First dose on Thu07/19/24 at 1630, Until Discontinu ed [facility] bisacodyL (DULCOLAX) suppository 10 mg 07-19 21:15: 00 07-19 21:04 :00 No 10mg 10 mg, Rectal, ONCE, 1 dose, On Thu07/19/24 at 1615, Routine [facility] diphenhydrA MINE:lidoca ine 2% viscous:maa lox 1:1:1 (FIRST-MOUT HWASH [facility]) oral suspension 15 mL 07-19 21:15: 00 07-19 21:02 :00 No 15mL 15 mL, Oral, ONCE, 1 dose, On Thu07/19/24 at 1615, [facility] LORazepam (ATIVAN) injection 1 mg 07-19 20:24: 20 Yes 1mg 1 mg, Slow IV Push, Q2HPRN, Starting on Thu07/19/24 at 1524, Until Discontinu ed, Routine, withdrawl [facility] predniSONE (DELTASONE) tablet 10 mg 07-19 14:00: 00 Yes 10mg 10 mg, Oral, DAILY, First dose on Thu07/19/24 at 0900, Until Discontinu ed, Routine [facility] HYDROcodone -acetaminop hen (NORCO) 10-325 mg tablet 1 tablet 07-19 12:53: 33 Yes 1{tbl} 1 tablet, Oral, Q6HPRN, Starting on Thu07/19/24 at 0753, Until Discontinu ed, Routine, Pain (scale 4-6) [facility] budesonide- formoteroL (SYMBICORT) 160-4.5 mcg/actuati on inhaler 2 Puff 07-19 01:00: 00 Yes 2{puff} 2 Puff, Inhalation , BID, First dose on Thu07/18/24 at 2000, Until Discontinu ed, [facility] ipratropium -albuteroL (DUONEB) 0.5 mg-3 mg(2.5 mg base)/3 mL nebulizer solution 3 mL 07-19 01:00: 00 07-20 16:26 :23 No 3mL 3 mL, Inhalation , QID, First dose on Thu07/18/24 at 2000, Until Discontinu ed, Routine [facility] D5W 0.45% NaCl (1/2NS) 1 L + KCL 20 mEq 07-18 22:30: 00 Yes IV Infusion, at 75 mL/hr, CONTINUOUS , Starting on Thu07/18/24 at 1730, Until Discontinu ed, Routine [facility] ampicillin- sulbactam (UNASYN) 3 g in NaCl [...] Respirator y, Duration of therapy: 5 days [facility] enoxaparin (LOVENOX) injection 40 mg 07-18 22:00: 00 Yes 40mg 40 mg, Subcutaneo us, DAILY, First dose on Thu07/18/24 at 1700, Until Discontinu ed, Routine [facility] nicotine (NICODERM) 21 mg/24 hr patch 1 Patch 07-18 19:15: 00 Yes 1{patch } 1 Patch, Topical, Administer over 24 Hours, Q24H, First dose on Thu07/18/24 at 1415, Until Discontinu ed, Routine [facility] dexMEDEtomi dine 200 mcg in 0.9 % [...] at maximum allowed dose, contact prescriber . [facility] ketorolac (TORADOL) injection 30 mg 07-18 14:45: 00 07-18 15:15 :00 No 30mg 30 mg, Slow IV Push, ONCE, 1 dose, On Thu07/18/24 at 0945, LAURYN [facility] NaCl 0.9% (NS) bolus infusion 1,000 mL 07-18 14:30: 00 07-18 16:30 :00 No 1000mL at 999 mL/hr, 1,000 mL, IV Infusion, ONCE, 1 dose, On Thu07/18/24 at 0930, LAURYN [facility] thiamine mononitrate (VITAMIN B-1 (MONONITRAT E)) tablet 100 mg 07-18 14:00: 00 Yes 100mg 100 mg, Oral, DAILY, First dose on Thu07/18/24 at 0900, Until Discontinu ed, Routine [facility] foLIC acid (FOLATE) tablet 1 mg 07-18 14:00: 00 Yes 1mg 1 mg, Oral, DAILY, First dose on Thu07/18/24 at 0900, Until Discontinu ed, Routine [facility] methylpredn isolone sod succ (SOLU-MEDRO L) injection 125 mg 07-18 14:00: 00 07-18 13:12 :00 No 125mg 125 mg, Intravenou s, ONCE, 1 dose, On Thu07/18/24 at 0900, 2 mL [facility] oxazepam (SERAX) capsule 15 mg 07-18 13:50: 52 Yes 15mg 15 mg, Oral, Q4HPRN, Starting on Thu07/18/24 at 0850, Until Discontinu ed, Routine, Only while awake for DBP equal to or greater than 100, HR equal to or greater than 100. [facility] proMETHazin e (PHENERGAN) 12.5 mg in NS 50 mL IV piggyback (CNR) 07-18 13:45: 00 07-18 14:29 :00 No 12.5mg 12.5 mg, IV Piggyback, at 200 mL/hr Administer over 15 Minutes, ONCE, 1 dose, On Thu07/18/24 at 0845, [facility] cefTRIAXone (ROCEPHIN) 1,000 mg in NaCl 0.9% (NS) 100 mL MINI-BAG 07-18 13:30: 00 07-18 14:13 :00 No 1000mg 1,000 mg, IV Piggyback, ONCE, 1 dose, On Thu07/18/24 at 0830, Administer over 30 Minutes, 100 mL, Reason for Anti-Infec tive: Documented Infection, Documented Infection Site: Respirator y, Duration of Therapy: Once (ED) [facility] ipratropium -albuteroL (DUONEB) 0.5 mg-3 mg(2.5 mg base)/3 mL nebulizer solution 3 mL 07-18 13:30: 00 07-18 12:47 :00 No 3mL 3 mL, Inhalation , ONCE, 1 dose, On Thu07/18/24 at 0830, [facility] aspirin tablet 325 mg 07-18 13:15: 00 07-18 12:37 :00 No 325mg 325 mg, Oral, ONCE, 1 dose, On Thu07/18/24 at 0815, [facility] NaCl 0.9% (NS) bolus infusion 1,000 mL 07-18 13:00: 00 07-18 14:57 :00 No 1000mL at 999 mL/hr, 1,000 mL, IV Infusion, ONCE, 1 dose, On Thu07/18/24 at 0800, [facility] LORazepam (ATIVAN) injection 1 mg 07-18 12:45: 00 07-18 12:46 :00 No 1mg 1 mg, Slow IV Push, ONCE, 1 dose, On Thu07/18/24 at 0745, STAT [facility] famotidine (PEPCID (PF)) injection 20 mg 07-18 12:15: 00 07-18 12:37 :00 No 20mg 20 mg, Slow IV Push, ONCE, 1 dose, On Thu07/18/24 at 0715, [facility] ondansetron (ZOFRAN (PF)) injection 8 mg 07-18 12:15: 00 07-18 12:37 :00 No 8mg 8 mg, Slow IV Push, ONCE, 1 dose, On Thu07/18/24 at 0715, [facility] albuterol sulfate HFA 90 mcg/actuati on [...] 1 dose, On Thu05/24/24 at 0900, LAURYN [facility] mupirocin 2 % ointment 05-24 00:00: 00 Yes [id number] 6 Apply to area(s) 3 (three) times daily. [facility] cephALEXin 500 mg tablet 05-24 00:00: 00 06-01 04:59 :00 No [id number] 6 500mg Take 1 tablet by mouth 4 (four) times daily for 7 days. [facility] ketorolac (TORADOL) injection 30 mg 02-17 03:15: 00 02-17 15:14 :00 No 30mg 30 mg, Slow IV Push, ONCE, 1 dose, On Thu02/17/24 at 2215, Routine [facility] methylpredn isolone sod succ (SOLU-MEDRO L) injection 125 mg 02-17 03:00: 00 02-17 14:59 :00 No 125mg 125 mg, Intravenou s, ONCE, 1 dose, On Thu02/17/24 at 2200, 2 mL [facility] ipratropium -albuteroL (DUONEB) 0.5 mg-3 mg(2.5 mg base)/3 mL nebulizer solution 6 mL 02-17 03:00: 00 02-17 14:59 :00 No 6mL 6 mL, Inhalation , ONCE NOW, 1 dose, On Thu02/17/24 at 2200, Routine [facility] NaCl 0.9% (NS) bolus infusion 1,000 mL 02-17 03:00: 00 02-17 14:59 :00 No 1000mL at 999 mL/hr, 1,000 mL, IV Infusion, ONCE, 1 dose, On Thu02/17/24 at 2200, LAURYN [facility] triamterene -hydrochlor othiazide 37.5-25 mg per capsule 02-16 20:52: 37 02-16 00:00 :00 No 1{capsu le} Take 1 capsule by mouth every morning. [facility] albuterol 5 mg/mL nebulizer solution 02-16 20:51: 42 02-16 00:00 :00 No 2.5mg Inhale 2.5 mg every 6 (six) hours as needed for Wheezing or Shortness of Breath. [facility] ketorolac (TORADOL) injection 15 mg 02-08 03:00: 00 02-08 02:21 :00 No 15mg 15 mg, Slow IV Push, ONCE, 1 dose, On Thu02/08/24 at 2200, Routine [facility] iopamidol (ISOVUE 370-500 mL) injection 100 mL 02-07 22:30: 00 02-07 22:30 :00 No [id number] 100mL 100 mL, Intravenou s, ONCE, 1 dose, On Thu02/08/24 at 1730, Routine [facility] ipratropium -albuteroL (DUONEB) 0.5 mg-3 mg(2.5 mg base)/3 mL nebulizer solution 3 mL 02-07 21:15: 00 02-07 20:45 :00 No 3mL 3 mL, Inhalation , ONCE, 1 dose, On Thu02/08/24 at 1615, Routine [facility] morpHINE (2 mg/mL) injection 4 mg 02-07 21:15: 00 02-07 20:27 :00 No 4mg 4 mg, Slow IV Push, ONCE, 1 dose, On Thu02/08/24 at 1615, STAT [facility] ondansetron (ZOFRAN (PF)) injection [...] 1 dose, On Thu02/08/24 at 1600, Routine [facility] ipratropium -albuteroL (DUONEB) 0.5 mg-3 mg(2.5 mg base)/3 mL nebulizer solution 3 mL 02-07 20:30: 00 02-07 19:31 :00 No 3mL 3 mL, Inhalation , ONCE, 1 dose, On Thu02/08/24 at 1530, [facility] HYDROcodone -acetaminop hen (NORCO) 10-325 [...] 1 dose, On Thu01/14/24 at 0530, STAT [facility] azithromyci n (ZITHROMAX Z-PORTER) 250 mg tablet 01-13 00:00: 00 02-16 00:00 :00 No [id number] Take 500 mg on day 1 then 250 mg on days 2-5 [facility] predniSONE 20 mg tablet 01-13 00:00: 00 02-16 00:00 :00 No [id number] Take 1 po tid x 2 days, then take 1 po bid x 3 days, then take 1 po daily x 3 days. [facility] acetaminoph en-codeine 300-30 mg tablet 01-13 00:00: 00 01-21 04:59 :00 No [id number] 1{tbl} Take 1 tablet by mouth every 6 (six) hours as needed for Pain (scale 7-10) (severe cough) for up to 7 days. Indication s: acute pain, severe cough [facility] clonazePAM 1 mg tablet 12-26 00:00: 00 02-16 00:00 :00 No 1mg Take 1 tablet by mouth at bedtime as needed for Other (anxiety). [facility] KCL (KLOR-CON M20) tablet 40 mEq 12-23 05:00: 00 12-23 05:07 :00 No 40meq 40 mEq, Oral, ONCE, 1 dose, On Thu12/22/23 at 2300, LAURYN [facility] NaCl 0.9% (NS) bolus infusion 1,000 mL 12-23 05:00: 00 12-23 05:09 :00 No 1000mL at 999 mL/hr, 1,000 mL, IV Infusion, ONCE, 1 dose, On Thu12/22/23 at 2300, LAURYN [facility] ondansetron (ZOFRAN (PF)) injection 4 mg 12-23 04:30: 00 12-23 04:24 :00 No 4mg 4 mg, Slow IV Push, ONCE, 1 dose, On Thu12/22/23 at 2230, [facility] maalox:diph enhydrAMINE :lidocaine 2 % viscous 1:1:1 (FIRST-MOUT HWASH BLM) oral suspension 15 mL 12-23 04:15: 00 12-23 04:17 :00 No 15mL 15 mL, Oral, ONCE, 1 dose, On Thu12/22/23 at 2215, Routine [facility] famotidine (PEPCID (PF)) injection 20 mg 12-23 04:15: 00 12-23 04:15 :00 No 20mg 20 mg, Slow IV Push, ONCE, 1 dose, On Thu12/22/23 at 2215, [facility] HYDROcodone -acetaminop hen (NORCO) 10-325 mg tablet 1 tablet 12-22 04:30: 00 12-22 16:29 :00 No 1{tbl} 1 tablet, Oral, ONCE, 1 dose, On Thu12/21/23 at 2230, Routine [facility] pantoprazol e (PROTONIX) 80 mg in NaCl 0.9% (NS) 20 mL syringe 12-22 04:15: 00 12-22 16:14 :00 No 80mg 80 mg, IV Push, ONCE, 1 dose, On Thu12/21/23 at 2215, Administer over 2 Minutes, 20 mL [facility] iopamidol (ISOVUE 370-500 mL) injection 100 mL 12-22 03:30: 00 12-22 03:30 :00 No [id number] 100mL 100 mL, Intravenou s, ONCE, 1 dose, On Thu12/21/23 at 2130, Routine [facility] morpHINE (4 mg/mL) injection 4 mg 12-22 03:30: 00 12-22 02:16 :00 No 4mg 4 mg, Slow IV Push, ONCE, 1 dose, On Thu12/21/23 at 2130, Routine [facility] ondansetron (ZOFRAN (PF)) injection 4 mg 12-22 02:45: 00 12-22 02:02 :00 No 4mg 4 mg, Slow IV Push, ONCE, 1 dose, On Thu12/21/23 at 2045, Routine [facility] hydrocortis one 25 mg suppository 12-22 00:00: 00 Yes [id number] 25mg Insert 1 Suppositor y into rectum 2 (two) times daily as needed for Rectal itching/pa in. [facility] ondansetron 4 mg disintegrat ing tablet 12-22 00:00: 00 02-16 00:00 :00 No [id number] 4mg Take 1 tablet by mouth every 8 (eight) hours as needed for Nausea and Vomiting (N/V). [facility] amoxicillin -clavulanat e 875-125 mg per tablet 12-22 00:00: 00 01-02 05:59 :00 No [id number] 1{tbl} Take 1 tablet by mouth every 12 (twelve) hours for 10 days. [facility] methylpredn isolone sod succ (SOLU-MEDRO L) injection 125 mg 2022-11 08:45: 00 10-27 20:44 :00 No 125mg 125 mg, Slow IV Push, ONCE, 1 dose, On Thu10/27/23 at 0245, STAT [facility] ipratropium -albuteroL (DUONEB) 0.5 mg-3 mg(2.5 mg base)/3 mL nebulizer solution 3 mL 2022-11 08:45: 00 10-27 20:44 :00 No 3mL 3 mL, Inhalation , ONCE NOW, 1 dose, On Thu10/27/23 at 0245, LAURYN [facility] diazePAM (VALIUM) tablet 10 mg 2022-11 07:45: 00 10-27 19:44 :00 No 10mg 10 mg, Oral, ONCE, 1 dose, On Thu10/27/23 at 0145, LAURYN [facility] levoFLOXaci n (LEVAQUIN) tablet 500 mg 2022-11 07:45: 00 10-27 19:44 :00 No 500mg 500 mg, Oral, ONCE, 1 dose, On Thu10/27/23 at 0145, LAURYN
Re ason for Anti-Infec tive: Empiric Non-Surgic al Prophylaxi s
Durat ion of therapy: Once (ED) [facility] DICLOFEN SOD 75MG EC 04-08 00:00: 00 Yes Tunde Haro AZITHROMYCI N 250MG 04-08 00:00: 00 Yes Tunde Haro PREDNISONE 10MG -08 00:00: 00 Yes Tunde Haro TAKE ONE (1) TABLET(S) BY MOUTH ONCE A DAY. 03-13 00:00: 00 Yes Tunde Haro AMLODIPINE 10MG - 00:00: 00 Yes Tunde Haro CLONAZEPAM 1MG -28 00:00: 00 Yes Tunde Haro PREDNISONE 20MG - 00:00: 00 Yes Tunde Haro OLOPATADINE 0.1% [...] 00:00: 00 Yes Tunde Haro AMOX/K CLAV [id number] 1729-0 3-03 00:00: 00 Yes Tunde Haro iopamidol (ISOVUE 370-500 mL) injection 70 mL 2021-11- 18:30: 00 10-14 18:30 :00 No [id number] 70mL 70 mL, Intravenou s, ONCE, 1 dose, On Thu10/14/22 at 1230, Routine [facility] methylpredn isolone sod succ (SOLU-MEDRO L) injection 125 mg 2021-11 18:00: 00 Yes 125mg 125 mg, Intravenou s, Q6H, First dose on Thu10/14/22 at 1200, Until Discontinu ed, Routine [facility] furosemide (LASIX) injection 40 mg 2021-11 17:45: 00 10-14 16:39 :00 No 40mg 40 mg, IV Push, ONCE, 1 dose, On Thu10/14/22 at 1145, LAURYN [facility] ipratropium -albuteroL (DUONEB) 0.5 mg-3 mg(2.5 mg base)/3 mL nebulizer solution 3 mL 2021-11 17:30: 00 10-14 16:41 :00 No 3mL 3 mL, Inhalation , ONCE, 1 dose, On Thu10/14/22 at 1130, Routine [facility] FENTanyl PF (SUBLIMAZE (PF)) injection 50 mcg 2021-11 16:45: 00 10-14 16:39 :00 No 50ug 50 mcg, Slow IV Push, ONCE, 1 dose, On Thu10/14/22 at 1045, Routine [facility] levoFLOXaci n 750 mg tablet 2021-11 00:00: 00 02-16 00:00 :00 No [id number] 750mg Take 1 tablet by mouth every 24 (twenty-fo ur) hours. [facility] HYDROcodone -acetaminop hen (NORCO) 10-325 mg tablet 1 tablet 03-12 12:15: 00 03-12 11:21 :00 No 1{tbl} 1 tablet, Oral, ONCE, 1 dose, On Thu03/12/22 at 0715, Routine [facility] HYDROcodone -acetaminop hen 10-325 mg tablet 03-12 00:00: 00 03-20 04:59 :00 No [id number] 1{tbl} Take 1 tablet by mouth every 6 (six) hours as needed for Pain (scale 7-10) for up to 7 days. Indication s: acute pain [facility] ipratropium -albuteroL (DUONEB) 0.5 mg-3 mg(2.5 mg base)/3 mL nebulizer solution 3 mL 02-20 13:00: 00 Yes 3mL 3 mL, Inhalation , QID, First dose on Thu02/20/22 at 0800, Until Discontinu ed, Routine [facility] methylPREDN ISolone sod succ (SOLU-MEDRO L (PF)) injection 40 mg 02-20 11:45: 00 02-20 10:43 :00 No 40mg 40 mg, Intravenou s, ONCE, 1 dose, On Thu02/20/22 at 0645, STAT [facility] foLIC acid (FOLATE) tablet 1 mg 02-20 11:45: 00 02-20 10:41 :00 No 1mg 1 mg, Oral, ONCE, 1 dose, On Thu02/20/22 at 0645, LAURYN [facility] thiamine (VITAMIN B1) injection 100 mg 02-20 11:45: 00 02-20 10:43 :00 No 100mg 100 mg, Intravenou s, ONCE, 1 dose, On Thu02/20/22 at 0645, LAURYN [facility] LORazepam (ATIVAN) injection 2 mg 02-20 11:45: 00 02-20 10:42 :00 No 2mg 2 mg, Slow IV Push, ONCE, 1 dose, On Kym 02/20/22 at 0645, STAT [facility] ipratropium -albuteroL (DUONEB) 0.5 mg-3 mg(2.5 mg base)/3 mL nebulizer solution 3 mL 02-20 10:30: 00 02-20 09:34 :00 No 3mL 3 mL, Inhalation , ONCE, 1 dose, On Thu02/20/22 at 0530, Routine [facility] triamterene -hydrochlor othiazid 37.5-25 mg tablet 02-20 00:00: 00 Yes [id number] 1{tbl} Take 1 tablet by mouth daily. [facility] albuterol 90 mcg/actuati on inhaler 02-20 00:00: 00 07-20 00:00 :00 No [id number] 2{puff} Inhale 2 Puffs every 4 (four) hours as needed for Wheezing or Shortness of Breath. [facility] chlordiazeP OXIDE 25 mg capsule 02-20 00:00: 00 07-20 00:00 :00 No [id number] 25mg Take 1 capsule by mouth every 6 (six) hours as needed for Anxiety, Agitation, Heart Rate => 100 or Detox. [facility] predniSONE 10 mg tablet 02-20 00:00: 00 02-16 00:00 :00 No [id number] TAKE ONE TABLET BY MOUTH DAILY [facility] albuterol 2.5 mg /3 mL (0.083 %) nebulizer solution 02-20 00:00: 00 02-16 00:00 :00 No [id number] 2.5mg Inhale 3 mL every 4 (four) hours. May also nebulize one extra every 6 hours. [facility] budesonide- formoteroL 160-4.5 mcg/actuati on inhaler 02-20 00:00: 00 02-16 00:00 :00 No [id number] 2{puff} Inhale 2 Puffs 2 (two) times daily. [facility] albuterol 5 mg/mL nebulizer solution 07-16 14:02: 20 Yes 2.5mg Inhale 2.5 mg every 6 (six) hours as needed for Wheezing or Shortness of Breath. [facility] budesonide- formoterol 160-4.5 mcg/actuati on inhaler 07-16 00:00: 00 Yes 2{puff} Inhale 2 Puffs 2 (two) times daily. [facility] albuterol 2.5 mg /3 mL (0.083 %) nebulizer solution 07-16 00:00: 00 Yes 2.5mg Inhale 3 mL every 4 (four) hours as needed for Wheezing or Shortness of Breath. [facility] triamterene -hydrochlor othiazide 37.5-25 mg per capsule 03-26 16:32: 14 Yes 1{capsu le} Take 1 capsule by mouth every morning. [facility] amLODIPine 10 mg tablet 03-26 16:32: 14 Yes 10mg Take 10 mg by mouth at bedtime. [facility] gabapentin 100 mg capsule 03-26 16:32: 14 Yes 100mg Take 100 mg by mouth 2 (two) times daily as needed ([facility] pain). [facility] foLIC acid 1 mg tablet 03-26 16:32: 14 Yes 1mg Take 1 mg by mouth daily. [facility] budesonide- formoterol 160-4.5 mcg/actuati on inhaler 03-26 00:00: 00 02-16 00:00 :00 No 2{puff} Inhale 2 Puffs 2 (two) times daily. [facility] Immunizations Ordered Immunization Name Filled Immunization Name Date Status Comments Source SARS-COV-2 COVID-19 PFIZER VACCINE 2021-02-03 00:00:00 Completed [facility] SARS-COV-2 COVID-19 PFIZER VACCINE 2021-02-03 00:00:00 Completed [facility] SARS-COV-2 COVID-19 PFIZER VACCINE 2021-02-03 00:00:00 Completed [facility] SARS-COV-2 COVID-19 PFIZER VACCINE 2021-01-13 00:00:00 Completed [facility] SARS-COV-2 COVID-19 PFIZER VACCINE 2021-01-13 00:00:00 Completed [facility] SARS-COV-2 COVID-19 PFIZER VACCINE 2021-01-13 00:00:00 Completed [facility] Pneumococcal Polysaccharide, PPSV23 (PNEUMOVAX) 2018-03-26 00:00:00 Completed [facility] Influenza Virus Vaccine Quad IM 3+ YRS 2018-03-26 00:00:00 Completed [facility] Pneumococcal Polysaccharide, PPSV23 (PNEUMOVAX) 2018-03-26 00:00:00 Completed [facility] Influenza Virus Vaccine Quad IM 3+ YRS 2018-03-26 00:00:00 Completed [facility] Pneumococcal Polysaccharide, PPSV23 (PNEUMOVAX) 2018-03-26 00:00:00 Completed [facility] Influenza Virus Vaccine Quad IM 3+ YRS 2018-03-26 00:00:00 Completed [facility] Pneumococcal Polysaccharide, PPSV23 (PNEUMOVAX) Unknown [facility] Influenza Virus Vaccine Quad IM 3+ YRS Unknown Completed [facility] SARS-COV-2 COVID-19 PFIZER VACCINE Unknown Completed [facility] Pneumococcal Polysaccharide, PPSV23 (PNEUMOVAX) Unknown [facility] Influenza Virus Vaccine Quad IM 3+ YRS Unknown Completed [facility] SARS-COV-2 COVID-19 PFIZER VACCINE Unknown Completed [facility] Pneumococcal Polysaccharide, PPSV23 (PNEUMOVAX) Unknown Completed [facility] Influenza Virus Vaccine Quad IM 3+ YRS Unknown Completed [facility] SARS-COV-2 COVID-19 PFIZER VACCINE Unknown Completed [facility] Pneumococcal Polysaccharide, PPSV23 (PNEUMOVAX) Unknown [facility] Influenza Virus Vaccine Quad IM 3+ YRS Unknown Completed [facility] SARS-COV-2 COVID-19 PFIZER VACCINE Unknown Completed [facility] Pneumococcal Polysaccharide, PPSV23 (PNEUMOVAX) Unknown Completed [facility] Influenza Virus Vaccine Quad IM 3+ YRS Unknown Completed [facility] SARS-COV-2 COVID-19 PFIZER VACCINE Unknown Completed [facility] Pneumococcal Polysaccharide, PPSV23 (PNEUMOVAX) Unknown [facility] Influenza Virus Vaccine Quad IM 3+ YRS Unknown Completed [facility] SARS-COV-2 COVID-19 PFIZER VACCINE Unknown Completed [facility] Pneumococcal Polysaccharide, PPSV23 (PNEUMOVAX) Unknown [facility] Influenza Virus Vaccine Quad IM 3+ YRS Unknown Completed [facility] SARS-COV-2 COVID-19 PFIZER VACCINE Unknown Completed [facility] Pneumococcal Polysaccharide, PPSV23 (PNEUMOVAX) Unknown Completed [facility] Influenza Virus Vaccine Quad IM 3+ YRS Unknown Completed [facility] SARS-COV-2 COVID-19 PFIZER VACCINE Unknown Completed [facility] Pneumococcal Polysaccharide, PPSV23 (PNEUMOVAX) Unknown Completed [facility] Influenza Virus Vaccine Quad IM 3+ YRS Unknown Completed [facility] SARS-COV-2 COVID-19 PFIZER VACCINE Unknown Completed [facility] Pneumococcal Polysaccharide, PPSV23 (PNEUMOVAX) Unknown Completed [facility] Influenza Virus Vaccine Quad IM 3+ YRS Unknown Completed [facility] SARS-COV-2 COVID-19 PFIZER VACCINE Unknown Completed [facility] Pneumococcal Polysaccharide, PPSV23 (PNEUMOVAX) Unknown Completed [facility] Influenza Virus Vaccine Quad IM 3+ YRS Unknown Completed [facility] SARS-COV-2 COVID-19 PFIZER VACCINE Unknown Completed [facility] Pneumococcal Polysaccharide, PPSV23 (PNEUMOVAX) Unknown Completed [facility] Influenza Virus Vaccine Quad IM 3+ YRS Unknown Completed [facility] SARS-COV-2 COVID-19 PFIZER VACCINE Unknown Completed [facility] Vital Signs Vital Name Observation Time Observation Value Comments S ource Systolic blood pressure 2024-07-23 18:00:00 175 mm[Hg] [facility] Diastolic blood pressure 2024-07-23 18:00:00 109 mm[Hg] [facility] Heart rate 2024-07-23 18:00:00 87 /min [facility] Respiratory rate 2024-07-23 18:00:00 16 /min [facility] Oxygen saturation in Arterial blood by Pulse oximetry 2024-07-23 18:00:00 100 /min [facility] Body temperature 2024-07-23 16:15:00 36.61 Debbie [facility] Body height 2024-07-23 16:15:00 162.6 cm [facility] Body weight 2024-07-23 16:15:00 123.832 kg [facility] BMI 2024-07-23 16:15:00 46.86 kg/m2 [facility] Heart rate 2024-07-20 19:15:00 116 /min [facility] Respiratory rate 2024-07-20 19:15:00 10 /min [facility] Oxygen saturation in Arterial blood by Pulse oximetry 2024-07-20 19:15:00 100 /min [facility] Systolic blood pressure 2024-07-20 17:00:00 149 mm[Hg] [facility] Diastolic blood pressure 2024-07-20 17:00:00 131 mm[Hg] [facility] Body temperature 2024-07-20 16:00:00 37.06 Debbie [facility] Body weight 2024-07-20 08:00:00 82.5 kg [facility] BMI 2024-07-20 08:00:00 31.22 kg/m2 [facility] Body height 2024-07-18 14:23:00 162.6 cm [facility] Systolic blood pressure 2024-07-18 01:00:00 176 mm[Hg] [facility] Diastolic blood pressure 2024-07-18 01:00:00 88 mm[Hg] [facility] Heart rate 2024-07-18 01:00:00 113 /min [facility] Respiratory rate 2024-07-18 01:00:00 18 /min [facility] Oxygen saturation in Arterial blood by Pulse oximetry 2024-07-18 01:00:00 95 /min [facility] Body temperature 2024-07-18 00:52:00 37.33 Debbie [facility] Body height 2024-07-18 00:52:00 162.6 cm [facility] Body weight 2024-07-18 00:52:00 122.925 kg [facility] BMI 2024-07-18 00:52:00 46.52 kg/m2 [facility] Systolic blood pressure 2024-05-24 13:51:42 157 mm[Hg] [facility] Diastolic blood pressure 2024-05-24 13:51:42 93 mm[Hg] [facility] Heart rate 2024-05-24 13:51:42 98 /min [facility] Respiratory rate 2024-05-24 13:51:42 18 /min [facility] Oxygen saturation in Arterial blood by Pulse oximetry 2024-05-24 13:51:42 97 /min [facility] Body temperature 2024-05-24 13:36:00 36.78 Debbie [facility] Body height 2024-05-24 13:36:00 162.6 cm [facility] Body weight 2024-05-24 13:36:00 78.472 kg [facility] BMI 2024-05-24 13:36:00 29.70 kg/m2 [facility] Systolic blood pressure 2024-02-18 01:57:00 134 mm[Hg] [facility] Diastolic blood pressure 2024-02-18 01:57:00 94 mm[Hg] [facility] Body height 2024-02-18 01:57:00 162.6 cm [facility] Body weight 2024-02-18 01:57:00 79.379 kg [facility] BMI 2024-02-18 01:57:00 30.04 kg/m2 [facility] Heart rate 2024-02-18 01:53:00 110 /min [facility] Body temperature 2024-02-18 01:53:00 36.61 Debbie [facility] Respiratory rate 2024-02-18 01:53:00 24 /min [facility] Oxygen saturation in Arterial blood by Pulse oximetry 2024-02-18 01:53:00 93 /min [facility] Systolic blood pressure 2024-02-09 01:54:05 150 mm[Hg] [facility] Diastolic blood pressure 2024-02-09 01:54:05 91 mm[Hg] [facility] Heart rate 2024-02-09 01:54:05 87 /min [facility] Respiratory rate 2024-02-09 01:54:05 17 /min [facility] Oxygen saturation in Arterial blood by Pulse oximetry 2024-02-09 01:54:05 93 /min [facility] Body temperature 2024-02-09 01:45:00 36.67 Debbie [facility] Body height 2024-02-09 01:45:00 162.6 cm [facility] Body weight 2024-02-09 01:45:00 81.194 kg [facility] BMI 2024-02-09 01:45:00 30.73 kg/m2 [facility] Respiratory rate 2024-02-08 21:00:00 18 /min [facility] Oxygen saturation in Arterial blood by Pulse oximetry 2024-02-08 21:00:00 96 /min [facility] Systolic blood pressure 2024-02-08 20:27:00 164 mm[Hg] [facility] Diastolic blood pressure 2024-02-08 20:27:00 90 mm[Hg] [facility] Heart rate 2024-02-08 20:27:00 83 /min [facility] Body temperature 2024-02-08 19:12:00 36.83 Debbie [facility] Body height 2024-02-08 19:12:00 162.6 cm [facility] Body weight 2024-02-08 19:12:00 81.194 kg [facility] BMI 2024-02-08 19:12:00 30.73 kg/m2 [facility] Heart rate 2024-01-14 12:15:00 98 /min [facility] Body temperature 2024-01-14 12:15:00 36.56 Debbie [facility] Respiratory rate 2024-01-14 12:15:00 14 /min [facility] Oxygen saturation in Arterial blood by Pulse oximetry 2024-01-14 12:15:00 95 /min [facility] Systolic blood pressure 2024-01-14 12:00:00 140 mm[Hg] [facility] Diastolic blood pressure 2024-01-14 12:00:00 90 mm[Hg] [facility] Body height 2024-01-14 10:51:00 162.6 cm [facility] Body weight 2024-01-14 10:51:00 81.194 kg [facility] BMI 2024-01-14 10:51:00 30.73 kg/m2 [facility] Systolic blood pressure 2023-12-23 05:02:00 133 mm[Hg] [facility] Diastolic blood pressure 2023-12-23 05:02:00 84 mm[Hg] [facility] Heart rate 2023-12-23 05:02:00 78 /min [facility] Body temperature 2023-12-23 05:02:00 36.17 Debbie [facility] Respiratory rate 2023-12-23 05:02:00 17 /min [facility] Oxygen saturation in Arterial blood by Pulse oximetry 2023-12-23 05:02:00 91 /min [facility] Body height 2023-12-23 03:45:00 162.6 cm [facility] Body weight 2023-12-23 03:45:00 81.194 kg [facility] BMI 2023-12-23 03:45:00 30.73 kg/m2 [facility] Systolic blood pressure 2023-12-22 02:08:00 143 mm[Hg] [facility] Diastolic blood pressure 2023-12-22 02:08:00 92 mm[Hg] [facility] Heart rate 2023-12-22 02:08:00 81 /min [facility] Respiratory rate 2023-12-22 02:08:00 13 /min [facility] Oxygen saturation in Arterial blood by Pulse oximetry 2023-12-22 02:08:00 95 /min [facility] Body temperature 2023-12-22 01:33:00 36.72 Debbie [facility] Body height 2023-12-22 01:33:00 162.6 cm [facility] Body weight 2023-12-22 01:33:00 81.239 kg [facility] BMI 2023-12-22 01:33:00 30.74 kg/m2 [facility] Systolic blood pressure 2023-11-11 02:00:00 127 mm[Hg] [facility] Diastolic blood pressure 2023-11-11 02:00:00 87 mm[Hg] [facility] Heart rate 2023-11-11 02:00:00 79 /min [facility] Respiratory rate 2023-11-11 02:00:00 20 /min [facility] Oxygen saturation in Arterial blood by Pulse oximetry 2023-11-11 02:00:00 98 /min [facility] Body temperature 2023-11-11 01:31:00 36.28 Debbie [facility] Body height 2023-11-11 01:31:00 162.6 cm [facility] Body weight 2023-11-11 01:31:00 79.379 kg [facility] BMI 2023-11-11 01:31:00 30.04 kg/m2 [facility] Systolic blood pressure 2023-10-27 06:54:00 133 mm[Hg] [facility] Diastolic blood pressure 2023-10-27 06:54:00 94 mm[Hg] [facility] Heart rate 2023-10-27 06:54:00 95 /min [facility] Body temperature 2023-10-27 06:54:00 36.44 Debbie [facility] Respiratory rate 2023-10-27 06:54:00 22 /min [facility] Body height 2023-10-27 06:54:00 162.6 cm [facility] Body weight 2023-10-27 06:54:00 78.472 kg [facility] BMI 2023-10-27 06:54:00 29.70 kg/m2 [facility] Oxygen saturation in Arterial blood by Pulse oximetry 2023-10-27 06:54:00 94 /min [facility] Systolic blood pressure 2022-10-14 19:43:00 111 mm[Hg] [facility] Diastolic blood pressure 2022-10-14 19:43:00 74 mm[Hg] [facility] Heart rate 2022-10-14 19:43:00 98 /min [facility] Body temperature 2022-10-14 19:43:00 36.39 Debbie [facility] Respiratory rate 2022-10-14 19:43:00 22 /min [facility] Oxygen saturation in Arterial blood by Pulse oximetry 2022-10-14 19:43:00 94 /min [facility] Body height 2022-10-14 16:13:00 162.6 cm [facility] Body weight 2022-10-14 16:13:00 81.647 kg [facility] BMI 2022-10-14 16:13:00 30.90 kg/m2 [facility] Systolic blood pressure 2022-03-12 10:13:00 119 mm[Hg] [facility] Diastolic blood pressure 2022-03-12 10:13:00 75 mm[Hg] [facility] Heart rate 2022-03-12 10:13:00 105 /min [facility] Body temperature 2022-03-12 10:13:00 37.28 Debbie [facility] Respiratory rate 2022-03-12 10:13:00 19 /min [facility] Body height 2022-03-12 10:13:00 162.6 cm [facility] Body weight 2022-03-12 10:13:00 99.791 kg [facility] BMI 2022-03-12 10:13:00 37.76 kg/m2 [facility] Oxygen saturation in Arterial blood by Pulse oximetry 2022-03-12 10:13:00 96 /min [facility] Systolic blood pressure 2022-02-20 11:57:00 155 mm[Hg] [facility] Diastolic blood pressure 2022-02-20 11:57:00 88 mm[Hg] [facility] Heart rate 2022-02-20 11:57:00 105 /min [facility] Respiratory rate 2022-02-20 11:57:00 18 /min [facility] Oxygen saturation in Arterial blood by Pulse oximetry 2022-02-20 11:57:00 100 /min [facility] Body temperature 2022-02-20 09:25:00 37 Debbie [facility] Body height 2022-02-20 09:25:00 162.6 cm [facility] Body weight 2022-02-20 09:25:00 96.163 kg [facility] BMI 2022-02-20 09:25:00 36.39 kg/m2 [facility] Respiratory Rate 2024-05-26 13:39:00 16.00 /min Tunde Haro BP Systolic 2024-05-26 13:39:00 152 mm[Hg] Jose Hrao BP Diastolic 2024-05-26 13:39:00 101 mm[Hg] Vince Haro Weight Measured 2024-05-26 13:39:00 179.00 pounds Tunde Haro Height Measured 2024-05-26 13:39:00 64.00 inches Tunde Haro Body Temperature 2024-05-26 13:39:00 97.80 degrees Tunde Haro Heart Rate 2024-05-26 13:39:00 110.00 /min Jose Haro Procedures Procedure Date / Time Performed Performing Clinician Source EKG-12 LEAD 2024-07-23 19:32:17 Yary Camp [facility] LACTIC ACID WHOLE BLOOD 2024-07-23 18:23:00 Mike Camp [facility] LIPASE 2024-07-23 17:05:00 Kathrin Yary G [facility] TROPONIN I 2024-07-23 17:05:00 Kathrin Yary G [facility] COMP. METABOLIC PANEL ([id number]) 2024-07-23 17:05:00 Yary Camp [facility] ETHANOL 2024-07-23 17:05:00 Yary Camp [facility] CBC WITH DIFF 2024-07-23 17:05:00 Yary Camp [facility] N-TERMINAL PRO-BNP 2024-07-23 17:05:00 Yary Camp [facility] HB ECG ROUTINE & RHYTHM STRIP 2024-07-20 14:13:43 Julien Marks [facility] MAGNESIUM 2024-07-20 08:21:00 Julien Marks [facility] BASIC METABOLIC PANEL (NA, K, CL, CO2, GLUCOSE, BUN, CREATININE, CA) 2024-07-20 08:21:00 Julien Marks [facility] CBC WITH DIFF 2024-07-20 08:21:00 Julien Marks [facility] MAGNESIUM 2024-07-19 09:24:00 Julien Marks [facility] BASIC METABOLIC PANEL (NA, K, CL, CO2, GLUCOSE, BUN, CREATININE, CA) 2024-07-19 09:24:00 Julien Marks [facility] CBC WITH DIFF 2024-07-19 09:24:00 Julien Marks [facility] LEGIONELLA AND STREPTOCOCCUS PNEUMONIAE URINARY ANTIGENS 2024-07-19 02:12:00 Julien Marks [facility] PROCALCITONIN 2024-07-18 21:39:00 Julien Marks [facility] LACTIC ACID WHOLE BLOOD 2024-07-18 15:51:00 Alfred Marks [facility] URINE DRUG (IMMUNOASSAY) - COMPREHENSIVE DRUG SCREEN W/O REFLEX 2024-07-18 15:31:00 Blu Mcguire [facility] MRSA / MSSA SCREEN BY PCR, NARES 2024-07-18 14:47:00 Julien Marks [facility] CT THORAX WO CONTRAST 2024-07-18 14:42:00 Rajinder Marks [facility] BLOOD CULTURE SCREEN 2024-07-18 13:01:00 Shay Stinson [facility] LACTIC ACID WHOLE BLOOD 2024-07-18 13:01:00 Facundo Stinson [facility] INFLUENZA A/B RSV COVID NAAT 2024-07-18 12:49:00 Shay Stinson [facility] LAB ONLY COVID INTERPRETATION 2024-07-18 12:49:00 Shay Stinson [facility] COMP. METABOLIC PANEL ([id number]) 2024-07-18 12:21:00 Blu Mcguire [facility] CRITICAL CARE 2024-07-18 12:12:28 Shay Stinson [facility] XR CHEST 1 VW 2024-07-18 11:40:27 Blu Mcguire [facility] TROPONIN I 2024-07-18 11:18:00 Blu Mcguire [facility] ETHANOL 2024-07-18 11:18:00 Blu Mcguire [facility] CBC WITH DIFF 2024-07-18 11:18:00 Blu Mcguire [facility] N-TERMINAL PRO-BNP 2024-07-18 11:18:00 Blu Mcguire [facility] HB ECG ROUTINE & RHYTHM STRIP 2024-07-18 11:10:41 Blu Mcguire [facility] XR CHEST 1 VW 2024-07-18 01:34:48 Blu Mcguire [facility] TROPONIN I 2024-07-18 00:56:00 Blu [facility] COMP. METABOLIC PANEL ([id number]) 2024-07-18 00:56:00 Blu Mcguire [facility] ETHANOL 2024-07-18 00:56:00 Blu Mcguire [facility] CBC WITH DIFF 2024-07-18 00:56:00 Blu Mcguire [facility] N-TERMINAL PRO-BNP 2024-07-18 00:56:00 Blu Mcguire [facility] AC PANEL 20 + LACTIC ACID 2024-02-08 20:47:00 Christina Villarreal [facility] XR CHEST 1 VW 2024-02-08 19:47:00 Christina Villarreal [facility] URINALYSIS 2024-02-08 19:36:00 Christina Villarreal [facility] MAGNESIUM 2024-02-08 19:25:00 Christina [facility] TROPONIN I 2024-02-08 19:25:00 Christina [facility] COMP. METABOLIC PANEL ([id number]) 2024-02-08 19:25:00 Christina Villarreal [facility] ETHANOL 2024-02-08 19:25:00 Christina Villarreal [facility] CBC WITH DIFF 2024-02-08 19:25:00 Christina Villarreal [facility] N-TERMINAL PRO-BNP 2024-02-08 19:25:00 Christina Villarreal [facility] EKG-12 LEAD 2024-01-14 12:00:51 Jac Navarro [facility] LIPASE 2024-01-14 11:11:00 Jac Navarro [facility] TROPONIN I 2024-01-14 11:11:00 Jac Navarro [facility] COMP. METABOLIC PANEL ([id number]) 2024-01-14 11:11:00 Jac Navarro [facility] ETHANOL 2024-01-14 11:11:00 Jac Navarro [facility] CBC WITH DIFF 2024-01-14 11:11:00 [facility] N-TERMINAL PRO-BNP 2024-01-14 11:11:00 Jac Navarro [facility] COVID-19 (ID NOW RAPID TESTING) 2024-01-14 11:11:00 Jac Navarro [facility] CONSENT/REFUSAL FOR DIAGNOSIS AND TREATMENT 2024-01-14 10:44:32 Doctor Unassigned, [place] [facility] LIPASE 2023-12-23 04:17:00 Cailin Rowe Un [facility] COMP. METABOLIC PANEL ([id number]) 2023-12-23 04:17:00 Cailin Rowe [facility] CBC WITH DIFF 2023-12-23 04:17:00 [facility]23-12-23 04:17:00 Cailin Rowe Un [facility] CONSENT/REFUSAL FOR DIAGNOSIS AND TREATMENT 2023-12-23 03:40:32 Doctor Unassigned, [place] [facility] CT ABDOMEN PELVIS W CONTRAST 2023-12-22 02:31:05 Quentin Maciel [facility] LIPASE 2023-12-22 01:58:00 Quentin Maciel [facility] COMP. METABOLIC PANEL ([id number]) 2023-12-22 01:58:00 Quentin Maciel [facility] ETHANOL 2023-12-22 01:58:00 Quentin Maciel [facility] CBC WITH DIFF 2023-12-22 01:58:00 Quentin Maciel [facility] PROTHROMBIN TIME / INR 2023-12-22 01:58:00 Wali Maciel [facility] URINALYSIS 2023-12-22 01:58:00 [facility] CONSENT/REFUSAL FOR DIAGNOSIS AND TREATMENT 2023-12-22 01:19:14 Doctor Unassigned, [place] [facility] NOTICE OF PRIVACY PRACTICES 2023-11-11 01:24:24 Doctor Unassigned, [place] [facility] CONSENT/REFUSAL FOR DIAGNOSIS AND TREATMENT 2023-11-11 01:23:54 Doctor Unassigned, [place] [facility] COVID-19 (ID NOW RAPID TESTING) 2023-10-27 07:09:00 Jac Navarro [facility] NOTICE OF PRIVACY PRACTICES 2023-10-27 06:49:48 Doctor Unassigned, [place] [facility] CONSENT/REFUSAL FOR DIAGNOSIS AND TREATMENT 2023-10-27 06:47:40 Doctor Unassigned, [place] [facility] CT ABDOMEN PELVIS W CONTRAST 2022-10-14 17:33:00 Quentin Maciel [facility] XR CHEST 1 VW 2022-10-14 17:10:37 Singer [facility] TROPONIN I 2022-10-14 16:37:00 [facility] COMP. METABOLIC PANEL (72369) 2022-10-14 16:37:00 [facility]FF 2022-10-14 16:37:00 Quentin Maciel [facility] PROTHROMBIN TIME / INR 2022-10-14 16:37:00 [facility] 2022-10-14 16:37:00 [facility]entin [facility] N-TERMINAL PRO-BNP 2022-10-14 16:37:00 Quentin Maciel [facility] CONSENT/REFUSAL FOR DIAGNOSIS AND TREATMENT 2022-10-14 15:56:36 Doctor Unassigned, [place] [facility] CONSENT/REFUSAL FOR DIAGNOSIS AND TREATMENT 2022-03-12 10:03:12 Doctor Unassigned, [place] [facility] XR CHEST 1 VW 2022-02-20 09:59:00 Christy Holliday [facility] LIPASE 2022-02-20 09:30:00 Christy Holliday [facility] TROPONIN I 2022-02-20 09:30:00 Christy Holliday [facility] COMP. METABOLIC PANEL (35997) 2022-02-20 09:30:00 Christy Holliday [facility] CBC WITH DIFF 2022-02-20 09:30:00 Christy Holliday [facility] N-TERMINAL PRO-BNP 2022-02-20 09:30:00 Christy Holliday [facility] NOTICE OF PRIVACY PRACTICES 2022-02-20 09:15:02 Doctor Unassigned, [place] [facility] CONSENT/REFUSAL FOR DIAGNOSIS AND TREATMENT 2022-02-20 09:14:47 Doctor Unassigned, [place] [facility] Encounters Start Date/Time End Date/Time Encounter Type Admission Type Attending [facility] Facility Care Department Encounter ID Source 2024-07-23 11:09:00 2024-07-23 13:55:00 Emergency X YARY CAMP PAMALA [facility] ERT [id number] [facility] 2024-07-23 11:09:00 2024-07-23 13:55:00 Emergency Yary Camp [facility] 1.2.840.114 350.1.13.10 4.2.7.2.686 [id number] [facility] 2024-07-18 06:09:00 2024-07-20 15:00:00 Inpatient X JULIEN MARKS [facility] JOÃO [id number] [facility] 2024-07-18 06:09:00 2024-07-20 15:00:00 Hospital Encounter Blu Mcguire [facility] Morris, David [facility] 1.2.840.114 350.1.13.10 4.2.7.2.686 [id number] [facility] 2024-07-17 19:49:00 2024-07-17 21:02:00 Emergency X LAUREEN MCGUIREBLU SANDERS [facility] ERT [id number] [facility] 2024-07-17 19:49:00 2024-07-17 21:02:00 Emergency Maynor Blu [facility] 1.2.840.114 350.1.13.10 4.2.7.2.686 [id number] [facility] 2024-06-06 10:15:00 2024-06-06 10:15:00 Outpatient WENDY BROWNLEE [id number] Maria Elena Alcantara 2024-05-26 13:21:21 2024-05-26 13:21:21 Outpatient SFA SFA [id number] Tunde Haro 2024-05-26 00:00:00 2024-05-26 00:00:[address] [facility] [id number] Tunde Haro 2024-05-24 08:36:00 2024-05-24 09:39:00 Emergency X MYRNA SANDHU [facility] ERT [id number] [facility] 2024-05-24 08:36:00 2024-05-24 09:39:00 Emergency Mil Myrna [facility] ..840.114 350.1.13.10 4.2.7.2.686 [id number] [facility] 2024-04-14 16:30:00 2024-04-14 16:30:00 Outpatient DARIEN LOBO [id number] Maria Elena Alcantara 2024-04-12 11:00:00 2024-04-12 11:00:00 Outpatient MINNA ORTA MARIA ELENA BECERRA [id number] Maria Elena [facility] 2024-04-12 11:00:00 2024-04-12 11:00:00 Outpatient KEMWENDY POPE [facility] ELENA BECERRA [id number] [facility]12 00:00:00 2024-04-12 00:00:00 Outpatient SHARATH HALEY MARIA ELENA BECERRA [id number] Maria Elena [facility] 2024-04-05 11:30:00 2024-04-05 11:30:00 Outpatient ALFREDONIURKADARIEN Olson MARIA ELENA BECERRA [id number] Maria Elena [facility] 2024-04-05 00:00:00 2024-04-05 00:00:00 Outpatient DARIEN LOBO MARIA ELENA BECERRA [id number] [facility] 2024-03-28 00:00:00 2024-03-28 00:00:00 Outpatient DARIEN LOBO MARIA ELENA BECERRA [id number] [facility] 2024-03-15 08:30:00 2024-03-15 08:30:00 Outpatient WENDY BROWNLEE MARIA ELENA BECERRA [id number] [facility] 2024-02-17 20:58:00 2024-02-17 21:44:00 Emergency X SALUDYARY JOHN [facility] ERT [id number] [facility] 2024-02-17 20:58:00 2024-02-17 21:44:00 Emergency Yary Camp [facility] 1.2.840.114 350.1.13.10 4.2.7.2.686 [id number] [facility] 2024-02-09 13:10:00 2024-02-09 15:14:00 Emergency E TUNDE QUINTANILLA [facility] [id number] [address] [place] [address] 2024-02-08 20:38:00 2024-02-08 21:40:00 Emergency X KEISHA DAVENPORT [facility] ERT [id number] [facility] 2024-02-08 20:38:00 2024-02-08 21:40:00 Emergency Keisha Davenport [facility] 1.2.840.114 350.1.13.10 4.2.7.2.686 [id number] [facility] 2024-02-08 14:08:00 2024-02-08 17:06:00 Emergency Christina Villarreal [facility] 1.2.840.114 350.1.13.10 4.2.7.2.686 [id number] [facility] 2024-01-14 04:46:00 2024-01-14 06:23:00 Emergency X TERESSA JAC [facility] ERT [id number] [facility] 2024-01-14 04:46:00 2024-01-14 06:23:00 Emergency Jac Navarro [facility] 1.2.840.114 350.1.13.10 4.2.7.2.686 [id number] [facility] 2023-12-22 21:51:00 2023-12-22 23:13:00 Emergency X TREV ROWERADHA [facility] ERT [id number] [facility] 2023-12-22 21:51:00 2023-12-22 23:13:00 Emergency Sullyroseline Cailin [facility] 1.2.840.114 350.1.13.10 4.2.7.2.686 [id number] [facility] 2023-12-21 19:36:00 2023-12-21 21:52:00 Emergency X QUENTIN MACIEL [facility] ERT [id number] [facility] 2023-12-21 19:36:00 2023-12-21 21:52:00 Emergency Quentin Maciel [facility] 1.2.840.114 350.1.13.10 4.2.7.2.686 [id number] [facility] 2023-11-10 19:29:00 2023-11-10 20:14:00 Emergency X CHRISTY HOLLIDAY [facility] ERT [id number] [facility] 2023-11-10 19:29:00 2023-11-10 20:14:00 Emergency Christy Holliday [facility] 1..840.114 350.1.13.10 4.2.7.2.686 [id number] [facility] 2023-10-27 00:49:00 2023-10-27 01:41:00 Emergency X TERESSAJAC [facility] ERT [id number] [facility] 2023-10-27 00:49:00 2023-10-27 01:41:00 Emergency Jac Navarro [facility] 1..840.114 350.1.13.10 4.2.7.2.686 [id number] [facility] 2023-07-15 00:00:00 2023-07-15 00:00:00 Outpatient YAMIL, DARIEN BECERRA [id number] Maria Elena [facility] 2023-06-16 11:30:00 2023-06-16 11:30:00 Outpatient DARIEN LOBO [id number] Maria Elena [facility] 2023-05-18 00:00:00 2023-05-18 00:00:00 Outpatient MARIA ELENA CHAN [id number] Maria Elena [facility] 2022-10-14 10:07:00 2022-10-14 14:39:00 Emergency X QUENTIN MACIEL [facility] ERT [id number] [facility] 2022-10-14 10:07:00 2022-10-14 14:39:00 Emergency Quentin Maciel [facility] 1..840.114 350.1.13.10 4.2.7.2.686 [id number] [facility] 2022-03-12 05:15:00 2022-03-12 06:41:00 Emergency X CHRISTY HOLLIDAY [facility] ERT [id number] [facility] 2022-03-12 05:15:00 2022-03-12 06:41:00 Emergency Christy Holliday [facility] 1.2.840.114 350.1.13.10 4.2.7.2.686 [id number] [facility] 2022-02-20 04:17:00 2022-02-20 07:16:00 Emergency X CHRISTY HOLLIDAY [facility] ERT [id number] [facility] 2022-02-20 04:17:00 2022-02-20 07:16:00 Emergency Christy Holliday [facility] 1.2.840.114 350.1.13.10 4.2.7.2.686 [id number] [facility] 2021-02-03 11:10:00 2021-02-03 11:10:00 Outpatient R DENISE SUNG [facility] [id number] [facility] 2021-01-13 11:20:00 2021-01-13 11:20:00 Outpatient [facility] [id number] [facility] 2020-11-10 08:20:00 2020-11-10 08:20:00 Outpatient R KARLEY ADAMS [facility] [id number] [facility] Results Test Description Test Time Test Comments Results Result Co mments Source [facility] WITH [id number] 18:19:05* Test Item Value Reference Range Interpretation [...] 33.2 g/dL 31.2-35.0 RDW-SD (test code = 59186-1) 53.9 fL 38.5-51.6 H RDW-CV (test code = 788-0) 15.2 % 12.1-15.4 PLT (test code = 777-3) 271 150-328 No platelet clum p seen on the smear MPV (test code = 68530-7) 10.1 fL 9.8-13.0 IPF % (test code = 1757572472) 4.2 % 1.2-10.7 Platelet count measured by fluorescence method. NRBC/100 WBC (test code = 7851738250) 0.0 0.0-10.0 NRBC x10^3 (test code = 3572653392) See_Comment [Automated [employer] ge] The system which generated this result transmitted reference range: 10*3/?L. The reference range was not used to interpret this result as normal/abnormal. GRAN MAT (NEUT) % (test code = 770-8) 74.5 % IMM GRAN % (test code = 4275129636) 1.70 % LYMPH % (test code = 736-9) 12.8 % MONO % (test code = 5905-5) 10.4 % EOS % (test code = 713-8) 0.3 % BASO % (test code = 706-2) 0.3 % GRAN MAT x10^3(ANC) (test code = 2894236101) 10.27 10*3/uL 1.99-6.95 H IMM GRAN x10^3 (test code = 8521888991) 0.23 10*3/uL 0.00-0.06 H LYMPH x10^3 (test code = 731-0) 1.77 10*3/uL 1.09-3.23 MONO x10^3 (test code = 742-7) 1.43 10*3/uL 0.36-1.02 H EOS x10^3 (test code = 711-2) 0.04 10*3/uL 0.06-0.53 L BASO x10^3 (test code = 704-7) 0.04 10*3/uL 0.01-0.09 ELLIPTO/OVAL (test code = 60647-0) 2+ See_Comment A [Automated [employer]] The system which generated this result transmitted reference range: (none). The reference range was not used to interpret this result as normal/abnormal. POLYCHROMASIA (test code = 84786-6) 2+ See_Comment [Automated [employer]] The system which generated this result transmitted reference range: 2+. The reference range was not used to interpret this result as normal/abnormal. SPHEROCYTES (test code = 802-9) 1+ A TOXIC CHANGES (test code = 803-7) Present A PLT ESTIMATE (test code = 9317-9) Normal Normal Lab Interpretation (test code = 46749-8) [facility] [id number] 17:49:42* Test Item Value Reference Range Interpretation Comme nts TROPONIN I (test code = 3206433026) 0.004 ng/mL <=0.034 LOUISE (test code = [...] of biotin. Lab Interpretation (test code = 90650-2) Normal [facility] [id number] 17:47:05* Test Item Value Reference Range Interpretation Comme nts NT-proBNP (test code = 74322-9) 125 pg/mL <=125 Lab Interpretation (test cod e = 78517-2) Normal [facility]14 17:39:20 ALCOHOL<10mg/dL07/23/2024 12:39 PM [facility]10 Wbclpmoo64-504 Toxic>100 Depression of BABBITTER>400 Fatalities [facility]ortedUnCH[facility] AliceCOM. METABOLIC PANEL (21993)2024-07-23 17:38:03* Test Item Value Reference Range Interpretation Comme nts NA (test code = 7007487363) 134 mmol/L 135-145 L K (test code = 5639701227) 3.8 mmol/L 3.5-5.0 CL (test code = 0376735056) 98 mmol/L 98-108 CO2 TOTAL (test code = 5313743880) 22 mmol/L 23-31 L AGAP (test code = 4954113794) 14 2-16 BUN (test code = 2956309438) 14 mg/dL 7-23 GLUCOSE (test code = 1363722962) 110 mg/dL 70-110 CREATININE (test code = 2160-0) 0.54 mg/dL 0.60-1.25 L TOTAL BILI (test code = 3545450373) 1.1 mg/dL 0.1-1.1 CALCIUM (test code = 0133988125) 9.4 mg/dL 8.6-10.6 T PROTEIN (test code = 6978841927) 7.8 g/dL 6.3-8.2 ALBUMIN (test code = 6575319270) 4.9 g/dL 3.5-5.0 ALK PHOS (test code = 0738443128) 75 U/L 34-122 ALTv (test code = 1742-6) 21 U/L 5-50 AST(SGOT) (test code = 3358318451) 30 U/L 13-40 eGFR (test code = 54729-8) 117.0 mL/min/1.73m2 CKD-EPI eGFR (2020). Assuming creatinine has been stable day-to-day for at least three months, the eGFR indicates Category G1 (>= 90 mL/min/1.73 m2) Lab Interpretation (test code = 39784-2) [facility] 17:38:03* Test Item Value Reference Range Interpretation Comme nts LIPASE (test code = 1628974830) 48 U/L 0-220 Lab Interpretation (test cod e = 28531-4) Normal [facility] THORAX WO [id number] 13:12:40 PROCEDURE: CT CHEST WITHOUT CONTRAST - [...] lesions are detected.The soft tissues appear normal. [facility]20[facility]10 07:32:10* Test Item Value Reference Range Interpretation Comme [facility] Procalcitonin (test code = 2784020965) 0.02 ng/mL <=0.07 LOUISE (test code = [...] lung abscess/empyema. For further information please refer to:[email or web address] Lab Interpretation (test code = 18150-7) Normal [facility] Whole Gsurs9391-01-48 16:01:14* Test Item Value Reference Range Interpretation Comme nts LACTIC ACID (test code = 1898420298) 1.87 mmol/L 0.50-2.20 Lab Interpretation (test cod e = 50423-9) Normal [facility] Whole [id number] 13:12:25* Test Item Value Reference Range Interpretation Comme nts LACTIC ACID (test code = 2308344546) 6.23 mmol/L 0.50-2.20 H Lab Interpretation (test cod e = 40645-2) Abnormal [facility]. METABOLIC PANEL (78596)2024-07-18 12:56:44* Test Item Value Reference Range Interpretation Comme nts NA (test code = 3678850584) 140 mmol/L 135-145 K (test code = 0217566241) 4.1 mmol/L 3.5-5.0 CL (test code = 5352084347) 102 mmol/L 98-108 CO2 TOTAL (test code = 9587250319) 20 mmol/L 23-31 L AGAP (test code = 6926001986) 18 2-16 H BUN (test code = 6559406273) 10 mg/dL 7-23 GLUCOSE (test code = 4332082645) 123 mg/dL 70-110 H CREATININE (test code = 2160-0) 0.59 mg/dL 0.60-1.25 L TOTAL BILI (test code = 0311557915) 0.6 mg/dL 0.1-1.1 CALCIUM (test code = 4733752389) 9.1 mg/dL 8.6-10.6 T PROTEIN (test code = 2386183134) 7.8 g/dL 6.3-8.2 ALBUMIN (test code = 1195547459) 4.9 g/dL 3.5-5.0 ALK PHOS (test code = 1085714145) 75 U/L 34-122 ALTv (test code = 1742-6) 23 U/L 5-50 AST(SGOT) (test code = 6333293386) 34 U/L 13-40 eGFR (test code = 01271-0) 113.9 mL/min/1.73m2 CKD-EPI eGFR (2020). Assuming creatinine has been stable day-to-day for at least three months, the eGFR indicates Category G1 (>= 90 mL/min/1.73 m2) Lab Interpretation (test code = 21624-9) [facility]normal [facility]Critical [id number] 12:12:28Shay Stinson MD ? ? 07/18/2024 ?8:56 [...] discussed with: admitting provider ? [facility]TR[facility]ENTERNOHEMY [id number] 12:08:40* Test Item Value Reference Range Interpretation Comme nts TROPONIN I (test code = 0145365870) 0.015 ng/mL <=0.034 LOUISE (test code = [...] of biotin. Lab Interpretation (test code = 24181-7) Normal [facility] [id number] 12:01:41* Test Item Value Reference Range Interpretation Comme nts NT-proBNP (test code = 21285-2) 111 pg/mL <=125 Lab Interpretation (test cod e = 31603-0) Normal [facility] 1 [id number] 11:57:22ORDERING PHYSICIAN: ZACH MCGUIRE CLINICAL HISTORY: Shortness of breath TECHNIQUE: Frontal view of chest COMPARISON: 07/17/2024 FINDINGS: The cardiac silhouette is mildly enlarged, stable. ?Stable right lower lobepatchy infiltrate. There are no effusions. The left lung is clear. Osseous structures are normal.[facility]OL2024-[facility]-09 11:53:01* Test Item Value Reference Range Interpretation Comme nts ALCOHOL (test code = 5499049048) 91 mg/dL LOUISE (test code = LOUISE) <10 Wthjtfka77-252 Toxic>100 Depression of BABBITTER>400 Fatalities Reported [facility] WITH [id number] 11:36:10* Test Item Value Reference Range Interpretation [...] 32.4 g/dL 31.2-35.0 RDW-SD (test code = 19740-4) 58.6 fL 38.5-51.6 H RDW-CV (test code = 788-0) 16.3 % 12.1-15.4 H PLT (test code = 777-3) 229 150-328 MPV (test code = 07640-9) 9.0 fL 9.8-13.0 L NRBC/100 WBC (test code = 7922679098) 0.0 0.0-10.0 NRBC x10^3 (test code = 8802052306) See_Comment [Automated message] The system which generated this result transmitted reference range: 10*3/?L. The reference range was not used to interpret this result as normal/abnormal. GRAN MAT (NEUT) % (test code = 770-8) 76.7 % IMM GRAN % (test code = 0768909020) 0.80 % LYMPH % (test code = 736-9) 15.8 % MONO % (test code = 5905-5) 6.6 % EOS % (test code = 713-8) 0.0 % BASO % (test code = 706-2) 0.1 % GRAN MAT x10^3(ANC) (test code = 8235884228) 11.29 10*3/uL 1.99-6.95 H IMM GRAN x10^3 (test code = 7065704273) 0.12 10*3/uL 0.00-0.06 H LYMPH x10^3 (test code = 731-0) 2.32 10*3/uL 1.09-3.23 MONO x10^3 (test code = 742-7) 0.97 10*3/uL 0.36-1.02 EOS x10^3 (test code = 711-2) 0.06-0.53 L BASO x10^3 (test code = 704-7) 0.01-0.09 Lab Interpretation (test code = 35849-2) [facility] 1 [id number] 02:23:27EXAM: ?XR CHEST 1 VW HISTORY: ?dyspnea Ordering physician: BLU MCGUIRE COMPARISON: Chest x-ray from February 08, 2024. TECHNIQUE: Frontal chest x-ray. ? FINDINGS: Heart size is stable. Pulmonary vessels are normal. Mild infiltrate in theright lower lung is present. No pneumothorax or pleural effusion isdetected. Mediastinal contour is normal. No free air is discerned. There isno displaced rib fracture. ?[facility]LIPID [id number] 00:00:00 * Test Item Value Reference Range Interpretation Comme nts CHOLESTEROL (test code = 2210) 234 MG/DL TRIGLYCERIDES (test code = 2232) 176 MG/DL HDL CHOLESTEROL (test code = 2220) 80 MG/DL CALC LDL CHOL (test code = 2237) 125 MG/DL RISK RATIO LDL/HDL (test cod e = 2238) 1.56 RATIO Tunde HaroCBC W/AUTO [id number] 00:00:00* Test Item Value Reference Range Interpretation [...] ABS NUCLEATED RBCS (test cod e = 63249) 0.00 K/UL Tunde Quiñonez TahirCOMPREHENSIVE METABOLIC [id number] 00:00:00* Test Item Value Reference Range Interpretation Comme nts GLUCOSE (test code = 2217) 145 MG/DL BUN (test code = 2208) 8 MG/DL CREATININE (test code = 2214) 0.71 MG/DL eGFR (2020 CKD-EPI) (test code = 12835) 108 ML/MIN/1.73 CALC BUN/CREAT (test code = [...] code = 2219) 11 U/L Tunde HaroHEMOGLOBIN [id number] 00:00:00* Test Item Value Reference Range Interpretation Comme nts HEMOGLOBIN A1c (test code = 18841) 5.5 % Tunde HaroIghhjfOjctbui4669-70-28 21:47:04* Test Item Value Reference Range Interpretation Comme nts ALCOHOL (test code = 1285818064) 329 mg/dL LOUISE (test code = LOUISE) <10 Kkpgpisv61-919 Toxic>100 Depression of BABBITTER>400 Fatalities Reported [facility] 20 + Lactic Eoxa0964-54-62 20:52:47* Test Item Value Reference Range Interpretation Comme nts PH (test code = 2) 7.39 7.35-7.45 PCO2 (test code = 8290733932) 42 35-45 PO2 (test code = 8799403043) 76 80-100 L HCO3 (test code = 7374492238) 25 22-26 BE (test code = 5450841159) -0.1 -3.0-3.0 THB (test code = 6591001704) 14.3 g/dL 13.5-18.0 %O2HB (test code = 1225158300) 85.8 % 94.0-99.0 L %COHB ART (test code = 3490534261) 9.0 % 0.0-1.5 H %METHB ART (test code = 7420186677) 0.3 % 0.4-1.5 L VOL%O2 ART (test code = 0250338555) 17.3 % 15.0-23.0 NA (test code = 6245295269) 140 mmol/L 135-145 K+ (test code = 9158460622) 4.1 mmol/L 3.5-5.0 AC CA IONZ (test code = 3671657815) 4.50 mg/dL 4.50-5.30 GLUCOSE (test code = 7464558106) 105 mg/dL 70-110 LACTIC ACID (test code = 5963457888) 2.60 mmol/L 0.50-2.20 H Lab Interpretation (test cod e = 45757-1) [facility]normal [facility]Trop[facility] [id number] 20:34:14* Test Item Value Reference Range Interpretation Comme nts TROPONIN I (test code = 6377201774) 0.008 ng/mL <=0.034 LOUISE (test code = [...] of biotin. Lab Interpretation (test code = 91299-2) Normal [facility] Yly-Ajr1983-78-01 20:31:35* Test Item Value Reference Range Interpretation Comme nts NT-proBNP (test code = 52040-2) 188 pg/mL <=125 LOUISE (test code = LOUISE) Result Indeterminate-Consid er causes of NT-proBNP elevation other than Heart failure such as acute coronary syndrome, pulmonary embolism, pulmonary hypertension, sepsis, stroke, and renal dysfunction. Lab Interpretation (test code = 22323-5) [facility]normal [facility] Northeast[facility]. Metabolic Panel (61507)2024-02-08 20:21:10* Test Item Value Reference Range Interpretation Comme nts NA (test code = 2216574313) 135 mmol/L 135-145 K (test code = 3795397943) 4.5 mmol/L 3.5-5.0 CL (test code = 5472913923) 100 mmol/L 98-108 CO2 TOTAL (test code = 7608777642) 22 mmol/L 23-31 L AGAP (test code = 1994241145) 13 2-16 BUN (test code = 5500288887) 8 mg/dL 7-23 GLUCOSE (test code = 8585375212) 97 mg/dL 70-110 CREATININE (test code = 2160-0) 0.65 mg/dL 0.60-1.25 TOTAL BILI (test code = 3676695551) 0.4 mg/dL 0.1-1.1 CALCIUM (test code = 8338934668) 9.4 mg/dL 8.6-10.6 T PROTEIN (test code = 3405838955) 8.2 g/dL 6.3-8.2 ALBUMIN (test code = 7689660320) 4.7 g/dL 3.5-5.0 ALK PHOS (test code = 4855225896) 76 U/L 34-122 ALTv (test code = 1742-6) 33 U/L 5-50 AST(SGOT) (test code = 0212836714) 54 U/L 13-40 H eGFR (test code = 21153-9) 111.3 mL/min/1.73m2 CKD-EPI eGFR (2020). Assuming creatinine has been stable day-to-day for at least three months, the eGFR indicates Category G1 (>= 90 mL/min/1.73 m2) Lab Interpretation (test code = 99171-1) [facility] Test Item Value Reference Range Interpretation Comme nts MAGNESIUM (test code = 6374423567) 2.1 mg/dL 1.7-2.4 Lab Interpretation (test cod e = 48527-0) [facility] [id number] 20:07:21EXAM: XR CHEST 1 VW COMPARISON: 01/14/2024 HISTORY: sob FINDINGS: Lungs: Slightly hyperexpanded lungswith subtle progression of interstitialprominence. Trace pleural effusions could be present. Heart/Mediastinum: Stable cardiomegaly. Bones and soft tissues: No osseous abnormality is visualized.[facility] Cbc with [id number] 20:04:26* Test Item Value Reference Range Interpretation [...] 33.8 g/dL 31.2-35.0 RDW-SD (test code = 13167-3) 50.5 fL 38.5-51.6 RDW-CV (test code = 788-0) 14.3 % 12.1-15.4 PLT (test code = 777-3) 206 150-328 MPV (test code = 13753-1) 9.1 fL 9.8-13.0 L NRBC/100 WBC (test code = 3074928443) 0.0 0.0-10.0 NRBC x10^3 (test code = 3810077910) See_Comment [Automated messa ge] The system which generated this result transmitted reference range: 10*3/?L. The reference range was not used to interpret this result as normal/abnormal. GRAN MAT (NEUT) % (test code = 770-8) 81.0 % IMM GRAN % (test code = 8631858882) 1.20 % LYMPH % (test code = 736-9) 10.9 % MONO % (test code = 5905-5) 6.8 % EOS % (test code = 713-8) 0.0 % BASO % (test code = 706-2) 0.1 % GRAN MAT x10^3(ANC) (test code = 1545145264) 9.31 10*3/uL 1.99-6.95 H IMM GRAN x10^3 (test code = 4192585897) 0.14 10*3/uL 0.00-0.06 H LYMPH x10^3 (test code = 731-0) 1.25 10*3/uL 1.09-3.23 MONO x10^3 (test code = 742-7) 0.78 10*3/uL 0.36-1.02 EOS x10^3 (test code = 711-2) 0.06-0.53 L BASO x10^3 (test code = 704-7) 0.01-0.09 Lab Interpretation (test code = 12737-4) [facility][id number][facility]2023-12-23 04:53:26* Test Item Value Reference Range Interpretation Comme nts NA (test code = 1722934109) 135 mmol/L 135-145 K (test code = 5249384546) 3.2 mmol/L 3.5-5.0 L CL (test code = 6661433407) 104 mmol/L 98-108 CO2 TOTAL (test code = 2002185194) 23 mmol/L 23-31 AGAP (test code = 7128102825) 8 2-16 BUN (test code = 9718040554) 11 mg/dL 7-23 GLUCOSE (test code = 3014886880) 82 mg/dL 70-110 CREATININE (test code = 2160-0) 0.64 mg/dL 0.60-1.25 TOTAL BILI (test code = 9026139839) 0.5 mg/dL 0.1-1.1 CALCIUM (test code = 9557548502) 8.8 mg/dL 8.6-10.6 T PROTEIN (test code = 9896800801) 6.7 g/dL 6.3-8.2 ALBUMIN (test code = 7881744990) 4.1 g/dL 3.5-5.0 ALK PHOS (test code = 5730758894) 46 U/L 34-122 ALTv (test code = 1742-6) 21 U/L 5-50 AST(SGOT) (test code = 6709252285) 43 U/L 13-40 H eGFR (test code = 11605-9) 111.8 mL/min/1.73m2 CKD-EPI eGFR (2020). Assuming creatinine has been stable day-to-day for at least three months, the eGFR indicates Category G1 (>= 90 mL/min/1.73 m2) Lab Interpretation (test code = 54691-2) [facility]53:26* Test Item Value Reference Range Interpretation Comme nts LIPASE (test code = 0463864603) 105 U/L 0-220 Lab Interpretation (test cod e = 38244-1) [facility] [id number] 04:34:24* Test Item Value Reference Range Interpretation [...] 33.0 g/dL 31.2-35.0 RDW-SD (test code = 84226-5) 50.9 fL 38.5-51.6 RDW-CV (test code = 788-0) 13.7 % 12.1-15.4 PLT (test code = 777-3) 232 150-328 MPV (test code = 09060-3) 8.7 fL 9.8-13.0 L NRBC/100 WBC (test code = 8434964960) 0.0 0.0-10.0 NRBC x10^3 (test code = 9516241198) See_Comment [Automated messa ge] The system which generated this result transmitted reference range: 10*3/?L. The reference range was not used to interpret this result as normal/abnormal. GRAN MAT (NEUT) % (test code = 770-8) 58.8 % IMM GRAN % (test code = 9873449115) 0.90 % LYMPH % (test code = 736-9) 27.8 % MONO % (test code = 5905-5) 10.5 % EOS % (test code = 713-8) 1.3 % BASO % (test code = 706-2) 0.7 % GRAN MAT x10^3(ANC) (test code = 7546862067) 5.68 10*3/uL 1.99-6.95 IMM GRAN x10^3 (test code = 0574979575) 0.09 10*3/uL 0.00-0.06 H LYMPH x10^3 (test code = 731-0) 2.69 10*3/uL 1.09-3.23 MONO x10^3 (test code = 742-7) 1.02 10*3/uL 0.36-1.02 EOS x10^3 (test code = 711-2) 0.13 10*3/uL 0.06-0.53 BASO x10^3 (test code = 704-7) 0.07 10*3/uL 0.01-0.09 Lab Interpretation (test code = 39751-7) [facility] [id number] 03:32:43Exam: CT Abdomen and Pelvis With Contrast, [...] osseous abnormality.Soft tissues: Small fat-containing inguinal hernias.[facility] 02:32:24* Test Item Value Reference Range Interpretation Comme nts ALCOHOL (test code = 9553913576) 117 mg/dL LOUISE (test code = LOUISE) <10 Bellyfsv13-299 Toxic>100 Depression of BABBITTER>400 Fatalities Reported [facility]. Metabolic Panel ([id number])2023-12-22 02:31:43* Test Item Value Reference Range Interpretation Comme nts NA (test code = 9514606020) 133 mmol/L 135-145 L K (test code = 4064919079) 3.3 mmol/L 3.5-5.0 L CL (test code = 5741634871) 102 mmol/L 98-108 CO2 TOTAL (test code = 8912343119) 25 mmol/L 23-31 AGAP (test code = 6415755888) 6 2-16 BUN (test code = 1775165127) 11 mg/dL 7-23 GLUCOSE (test code = 9561672861) 75 mg/dL 70-110 CREATININE (test code = 5333519452) 0.51 mg/dL 0.60-1.25 L TOTAL BILI (test code = 9473506049) 0.5 mg/dL 0.1-1.1 CALCIUM (test code = 6168221100) 8.9 mg/dL 8.6-10.6 T PROTEIN (test code = 1101162943) 7.2 g/dL 6.3-8.2 ALBUMIN (test code = 2812907806) 4.5 g/dL 3.5-5.0 ALK PHOS (test code = 7839883922) 46 U/L 34-122 ALTv (test code = 1742-6) 15 U/L 5-50 AST(SGOT) (test code = 3627777335) 24 U/L 13-40 eGFR (test code = 28326-4) 119.7 mL/min/1.73m2 CKD-EPI eGFR (2020). Assuming creatinine has been stable day-to-day for at least three months, the eGFR indicates Category G1 (>= 90 mL/min/1.73 m2) Lab Interpretation (test code = 92364-7) [facility] 02:31:43* Test Item Value Reference Range Interpretation Comme nts LIPASE (test code = 8768804780) 121 U/L 0-220 Lab Interpretation (test cod e = 66063-9) [facility]th[facility] / [id number] 02:21:02* Test Item Value Reference Range Interpretation Comme nts PROTIME PATIENT (test code = 5964-2) 10.5 10.1-12.6 INR (test code = 6301-6) 0.9 Normal INR <1.1; Warfarin Therapeutic range 2.0 to 3.0 or 2.5 to 3.5, depending upon the indications. Lab Interpretation (test code = 15603-6) [facility] with [id number] 02:14:04* Test Item Value Reference Range Interpretation [...] 34.0 g/dL 31.2-35.0 RDW-SD (test code = 84439-0) 49.1 fL 38.5-51.6 RDW-CV (test code = 788-0) 13.5 % 12.1-15.4 PLT (test code = 777-3) 260 150-328 MPV (test code = 88277-2) 8.7 fL 9.8-13.0 L NRBC/100 WBC (test code = 7422507862) 0.0 0.0-10.0 NRBC x10^3 (test code = 8709057564) See_Comment [Automated messa ge] The system which generated this result transmitted reference range: 10*3/?L. The reference range was not used to interpret this result as normal/abnormal. GRAN MAT (NEUT) % (test code = 770-8) 64.3 % IMM GRAN % (test code = 1656869254) 0.90 % LYMPH % (test code = 736-9) 24.2 % MONO % (test code = 5905-5) 9.1 % EOS % (test code = 713-8) 0.7 % BASO % (test code = 706-2) 0.8 % GRAN MAT x10^3(ANC) (test code = 9421286645) 8.73 10*3/uL 1.99-6.95 H IMM GRAN x10^3 (test code = 5025487522) 0.12 10*3/uL 0.00-0.06 H LYMPH x10^3 (test code = 731-0) 3.28 10*3/uL 1.09-3.23 H MONO x10^3 (test code = 742-7) 1.23 10*3/uL 0.36-1.02 H EOS x10^3 (test code = 711-2) 0.10 10*3/uL 0.06-0.53 BASO x10^3 (test code = 704-7) 0.11 10*3/uL 0.01-0.09 H Lab Interpretation (test code = 07126-2) Abnormal [facility] [id number] 10:16:22* Test Item Value Reference Range Interpretation Comments TROPONIN I (test code = 3772141308) 0.007 ng/mL See_Comment [Automated message] The system [...] of biotin. Lab Interpretation (test code = 10427-6) [facility] [id number] 10:13:01* Test Item Value Reference Range Interpretation Comme nts NT-proBNP (test code = 5356384935) 52 pg/mL See_Comment [Automated message] The system which generated this result transmitted reference range: <=125. The reference range was not used to interpret this result as normal/abnormal. LOUISE (test code = LOUISE) Biotin has been reported to cause a negative bias, interpret results relative to patient's use of biotin. Lab Interpretation (test code = 43837-9) [facility] (05072)2022-02-20 10:04:02* Test Item Value Reference Range Interpretation Comme nts NA (test code = 2045420991) 137 mmol/L 135-145 K (test code = 0878933606) 3.6 mmol/L 3.5-5.0 CL (test code = 0236426769) 99 mmol/L 98-108 CO2 TOTAL (test code = 7470979794) 25 mmol/L 23-31 AGAP (test code = 1257132783) 2-16 BUN (test code = 5594065890) 6 mg/dL 7-23 L GLUCOSE (test code = 9127910595) 88 mg/dL 70-110 CREATININE (test code = 1876978247) 0.55 mg/dL 0.60-1.25 L TOTAL BILI (test code = 3484564737) 0.8 mg/dL 0.1-1.1 CALCIUM (test code = 9609983596) 8.9 mg/dL 8.6-10.6 T PROTEIN (test code = 9893937375) 7.5 g/dL 6.3-8.2 ALBUMIN (test code = 8275024900) 4.8 g/dL 3.5-5.0 ALK PHOS (test code = 3825493904) 113 U/L 34-122 ALTv (test code = 1742-6) 84 U/L 5-50 H AST(SGOT) (test code = 4555596368) 107 U/L 13-40 H eGFR (test code = 9986012859) mL/min/1.73m2 LOUISE (test code = LOUISE) Association [...] imaging tests). Lab Interpretation (test code = 37248-8) [facility], [id number] 10:03:21* Test Item Value Reference Range Interpretation Comme nts LIPASE (test code = 9331129711) 193 U/L 0-220 Lab Interpretation (test cod e = 44864-6) [facility] [id number] 09:39:17* Test Item Value Reference Range Interpretation [...] g/dL 31.2-35.0 H RDW-SD (test code = 73560-2) 44.4 fL 38.5-51.6 RDW-CV (test code = 788-0) 11.9 % 12.1-15.4 L PLT (test code = 777-3) See_Comment [Automated messa ge] The system which generated this result transmitted reference range: 150 - 328 10*3/?L. The reference range was not used to interpret this result as normal/abnormal. MPV (test code = 07388-5) 9.2 fL 9.8-13.0 L NRBC/100 WBC (test code = 0805399760) See_Comment [Automated Diabetica ssage] The system which generated this result transmitted reference range: 0.0 - 10.0 /100 WBCs. The reference range was not used to interpret this result as normal/abnormal. NRBC x10^3 (test code = 8421562993) <0.01 See_Comment [Automated messa ge] The system which generated this result transmitted reference range: 10*3/?L. The reference range was not used to interpret this result as normal/abnormal. GRAN MAT (NEUT) % (test code = 770-8) 69.9 % IMM GRAN % (test code = 4652282424) 1.50 % LYMPH % (test code = 736-9) 18.9 % MONO % (test code = 5905-5) 7.0 % EOS % (test code = 713-8) 1.9 % BASO % (test code = 706-2) 0.8 % GRAN MAT x10^3(ANC) (test code = 7743767840) 7.15 10*3/uL 1.99-6.95 H IMM GRAN x10^3 (test code = 4887515771) 0.15 10*3/uL 0.00-0.06 H LYMPH x10^3 (test code = 731-0) 1.93 10*3/uL 1.09-3.23 MONO x10^3 (test code = 742-7) 0.72 10*3/uL 0.36-1.02 EOS x10^3 (test code = 711-2) 0.19 10*3/uL 0.06-0.53 BASO x10^3 (test code = 704-7) 0.08 10*3/uL 0.01-0.09 Lab Interpretation (test code = 67022-4) [facility] History and Physical Notes Date/Time Note Provider Source 2024-07-18 16:12:08 Medicine History & Physical Date of Service: 07/18/2024 Pt presents from: Home CC: Shortness of breath History of Present Illness: Randy Briones is a 54 year old male with past md hx of COPD, hypertension, alcohol abuse, active smoker and osteoporosis that presents to the ED for shortness of breath. 

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
[2024-10-23 12:40] VITALS: TEMP 97.9
[2024-10-23 12:42] VITALS: BP 103/75; O2SAT 97
== END 2024-10-23 12:36 | disposition left against medical advice (07) ==
LOC: ER 11:49
DX: Z53.21 Procedure and treatment not carried out due to patient leaving prior to being seen by health care provider (principal)
CPT/HCPCS: 99281

== ENCOUNTER 2024-10-23 22:25 | Observation (INO) | payer OTHER ==
--- OUTSIDE RECORDS SUMMARY | 2024-10-23 22:29 | XMS REPORT | Continuity of Care Document ---
Author Name Unknown Address [address] [place] [address] [facility] Address 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 [employer] Name Role Phone Juan Daniel [facility] Primary Care Physician [phone] YARY CAMP Attending Clinician Unavailable YARY CAMP Attending Clinician Unavailable Yary Camp NP Attending Clinician [phone] JULIEN MARKS Attending Clinician Unavailable Blu Mcguire MD Attending Clinician [phone] Shay Stinson MD Attending Clinician [phone] Julien Marks DO Attending Clinician [phone] BLU MCGUIRE Attending Clinician Unavailable BLU MCGUIRE Attending Clinician Unavailable WENDY BROWNLEE Attending Clinician UnaMYRNA Bernard Attending Clinician Unavailable DARIEN LOBO Attending Clinician Unavailable MINNA ORTA Attending Clinician Unavailab SHARATH Isbell Attending Clinician Unavailable TUNDE QUINTANILLA Attending Clinician Unavailable KEISHA DAVENPORT Attending Clinician Unauriah Davenport MD, Keisha Jackson Attending Clinician + Christina Victoria Attending Clinician [phone] JAC NAVARRO Attending Clinician Unavailable Jac Navarro MD Attending Clinician [phone] CAILIN ROWE Attending Clinician Unavailab QUENTIN Boothe Attending Clinician Unavailable Quentin Maciel DO Attending Clinician [phone] CHRISTY HOLLIDAY Attending Clinician Unavailable Christy Holliday MD Attending Clinician [phone] MARIA [facility] Attending Clinicia n Unavailable DEINSE SUNG Attending Clinician Unavailable KARLEY ADAMS Attending Clinician Unavailable JULIEN MARKS Admitting Clinician Unavailable Julien Marks DO Admitting Clinician [phone] BLU MCGUIRE Admitting Clinician Unavailable JAC NAVARRO Admitting Clinician Unavailable QUENTIN MACIEL Admitting Clinician Unavailable CHRISTY HOLLIDAY Admitting Clinician Unavailable Payers Payer Name Policy Type Policy Number Effective Date Expirati on Date Source HIM [facility] O [id number] 2024 00:00:00 [facility] VINOD LEE COPAY FOCUS 9 [id number] 2024 00:00:00 [employer] [id number] 2023 00:00:00 [employer] 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 ON 9 [id number] 2023 00:00:00 Problems Condition Name Condition Details Condition Category Status Onset Date Resolution Date Last Treatment Date Treating Clinician Comments Source Community acquired pneumonia of right lower lobe of lung Community acquired pneumonia of right lower lobe of lung Disease Active 07-18 00:00: 00 [facility] Acute exacerbati on of chronic obstructiv e pulmonary disease (COPD) Acute exacerbati on of chronic obstructiv e pulmonary disease (COPD) Disease Active 03-24 00:00: 00 [facility] Obesity (BMI 30-39.9) Obesity (BMI 30-39.9) Disease Active 03-24 00:00: 00 [facility] Allergies, Adverse Reactions, Alerts Allergy Name Allergy Type Status Severity Reaction(s) Onset Date Inactive Date Treating Clinician Comments Source Lisinopr il Propensi ty to adverse reaction s Active Anaphylaxis 03-24 00:00: 00 [facility] LISINOPR IL DRUG INGREDI Active Anaphylaxis 03-24 00:00: 00 [facility] Social History Social Habit Start Date Stop Date Quantity Comments Source History of tobacco use Smokes tobacco daily [facility] Alcoholic beverage intake 2024-07-23 00:00:00 2024-07-23 00:00:00 4.29 /d [facility] History of Social function 2024-07-19 00:00:00 2024-07-19 00:00:00 [facility] Tobacco use and exposure 2024-07-18 00:00:00 2024-07-18 00:00:00 User of smokeless tobacco [facility] Tobacco Comment 2024-07-18 00:00:00 2024-07-18 00:00:00 trying to quit [facility] Alcohol Comment 2024-07-18 00:00:00 2024-07-18 00:00:00 2 1/2 cases daily [facility] Alcohol intake 2024-02-08 00:00:00 2024-02-08 00:00:00 4.29 /d [facility] Exposure to SARS-CoV-2 (event) 2022-10-04 00:00:00 2022-10-14 10:25:00 Not sure [facility] Sex assigned at 1970 00:00:00 1970 00:00:00 [facility] Smoking Status Start Date Stop Date Source Smokes tobacco daily 2024-07-18 00:00:00 [facility] Medications Ordered Medication Name Filled Medication Name Start Date Stop Date Current Medication? Ordering Clinician Indication Dosage Frequency Signature (SIG) Comments Components Source ketorolac (TORADOL) injection 30 mg 07-23 19:30: 00 07-23 18:21 :00 No 30mg 30 mg, Slow IV Push, ONCE, 1 dose, On 07/23/24 at 1430, Routine [facility] pantoprazol e (PROTONIX) injection 40 mg 07-23 17:30: 00 07-23 17:03 :00 No 40mg 40 mg, Slow IV Push, ONCE, 1 dose, On 07/23/24 at 1230 [facility] ipratropium -albuteroL (DUONEB) 0.5 mg-3 mg(2.5 mg base)/3 mL nebulizer solution 3 mL 07-23 17:15: 00 07-23 17:26 :00 No 3mL 3 mL, Inhalation , ONCE NOW, 1 dose, On 07/23/24 at 1215, Routine [facility] methylpredn isolone sod succ (SOLU-MEDRO L) injection 125 mg 07-23 17:15: 00 07-23 17:01 :00 No 125mg 125 mg, Intravenou s, ONCE, 1 dose, On 07/23/24 at 1215, 2 mL [facility] NaCl 0.9% (NS) bolus infusion 1,000 mL 07-23 17:15: 00 07-23 17:30 :00 No 1000mL at 999 mL/hr, 1,000 mL, IV Infusion, ONCE, 1 dose, On 07/23/24 at 1215, LAURYN [facility] piperacilli n-tazobacta m (ZOSYN) 3.375 g in NaCl 0.9% (NS) 100 mL MINI-BAG 07-23 16:45: 00 07-23 17:40 :00 No 3.375g 3.375 g, IV Piggyback, ONCE, 1 dose, On 07/23/24 at 1145, Administer over 30 Minutes, 100 mL, Reason for Anti-Infec tive: Documented Infection, Documented Infection Site: Respirator y, Duration of Therapy: Once (ED) [facility] oxazepam (SERAX) capsule 15 mg 07-20 19:50: 52 07-21 19:59 :00 No 15mg 15 mg, Oral, Q12H TAPER, 2 doses, First dose on Thu07/20/24 at 1500, Last dose on Thu07/21/24 at 0300, Routine [facility] levalbutero l (XOPENEX) nebulizer solution 0.63 mg 07-20 19:00: 00 Yes .63mg 0.63 mg, Inhalation , TID, First dose on Thu07/20/24 at 1400, Until Discontinu ed, [facility] spironolact one (ALDACTONE) tablet 25 mg 07-20 14:00: 00 Yes 25mg 25 mg, Oral, DAILY, First dose on Thu07/20/24 at 0900, Until Discontinu ed, Routine [facility] Potassium Bicarb-Citr ic Acid (EFFER-K) effervescen t tablet 40 mEq 07-20 13:00: 00 07-21 12:59 :00 No 40meq 40 mEq, Oral, BID, 2 doses, First dose on Thu07/20/24 at 0800, Last dose on Thu07/20/24 at 2000, Routine [facility] amLODIPine (NORVASC) tablet 10 mg 07-19 22:30: 00 Yes 10mg 10 mg, Oral, DAILY, First dose on Thu07/19/24 at 1730, Until Discontinu ed, Routine [facility] hydralAZINE (APRESOLINE ) injection 10 mg 07-19 22:16: 33 Yes 10mg 10 mg, Slow IV Push, Q6HPRN, Starting on Thu07/19/24 at 1716, Until Discontinu ed, Routine, DBP=>100; SBP=>160, For SBP > 160 [facility] pantoprazol e (PROTONIX) injection 40 mg 07-19 21:30: 00 Yes 40mg 40 mg, Slow IV Push, Q24H, First dose on Thu07/19/24 at 1630, Until Discontinu ed [facility] bisacodyL (DULCOLAX) suppository 10 mg 07-19 21:15: 00 07-19 21:04 :00 No 10mg 10 mg, Rectal, ONCE, 1 dose, On Thu07/19/24 at 1615, Routine [facility] diphenhydrA MINE:lidoca ine 2% viscous:maa lox 1:1:1 (FIRST-MOUT HWASH [facility]) oral suspension 15 mL 07-19 21:15: 00 07-19 21:02 :00 No 15mL 15 mL, Oral, ONCE, 1 dose, On Thu07/19/24 at 1615, [facility] LORazepam (ATIVAN) injection 1 mg 07-19 20:24: 20 Yes 1mg 1 mg, Slow IV Push, Q2HPRN, Starting on Thu07/19/24 at 1524, Until Discontinu ed, Routine, withdrawl [facility] predniSONE (DELTASONE) tablet 10 mg 07-19 14:00: 00 Yes 10mg 10 mg, Oral, DAILY, First dose on Thu07/19/24 at 0900, Until Discontinu ed, Routine [facility] HYDROcodone -acetaminop hen (NORCO) 10-325 mg tablet 1 tablet 07-19 12:53: 33 Yes 1{tbl} 1 tablet, Oral, Q6HPRN, Starting on Thu07/19/24 at 0753, Until Discontinu ed, Routine, Pain (scale 4-6) [facility] budesonide- formoteroL (SYMBICORT) 160-4.5 mcg/actuati on inhaler 2 Puff 07-19 01:00: 00 Yes 2{puff} 2 Puff, Inhalation , BID, First dose on Thu07/18/24 at 2000, Until Discontinu ed, [facility] ipratropium -albuteroL (DUONEB) 0.5 mg-3 mg(2.5 mg base)/3 mL nebulizer solution 3 mL 07-19 01:00: 00 07-20 16:26 :23 No 3mL 3 mL, Inhalation , QID, First dose on Thu07/18/24 at 2000, Until Discontinu ed, Routine [facility] D5W 0.45% NaCl (1/2NS) 1 L + KCL 20 mEq 07-18 22:30: 00 Yes IV Infusion, at 75 mL/hr, CONTINUOUS , Starting on Thu07/18/24 at 1730, Until Discontinu ed, Routine [facility] ampicillin- sulbactam (UNASYN) 3 g in [...] Respirator y, Duration of therapy: 5 days [facility] enoxaparin (LOVENOX) injection 40 mg 07-18 22:00: 00 Yes 40mg 40 mg, Subcutaneo us, DAILY, First dose on Thu07/18/24 at 1700, Until Discontinu ed, Routine [facility] nicotine (NICODERM) 21 mg/24 hr patch 1 Patch 07-18 19:15: 00 Yes 1{patch } 1 Patch, Topical, Administer over 24 Hours, Q24H, First dose on Thu07/18/24 at 1415, Until Discontinu ed, Routine [facility] dexMEDEtomi dine 200 mcg in 0.9 [...] at maximum allowed dose, contact prescriber . [facility] ketorolac (TORADOL) injection 30 mg 07-18 14:45: 00 07-18 15:15 :00 No 30mg 30 mg, Slow IV Push, ONCE, 1 dose, On Thu07/18/24 at 0945, LAURYN [facility] NaCl 0.9% (NS) bolus infusion 1,000 mL 07-18 14:30: 00 07-18 16:30 :00 No 1000mL at 999 mL/hr, 1,000 mL, IV Infusion, ONCE, 1 dose, On Thu07/18/24 at 0930, LAURYN [facility] thiamine mononitrate (VITAMIN B-1 (MONONITRAT E)) tablet 100 mg 07-18 14:00: 00 Yes 100mg 100 mg, Oral, DAILY, First dose on Thu07/18/24 at 0900, Until Discontinu ed, Routine [facility] foLIC acid (FOLATE) tablet 1 mg 07-18 14:00: 00 Yes 1mg 1 mg, Oral, DAILY, First dose on Thu07/18/24 at 0900, Until Discontinu ed, Routine [facility] methylpredn isolone sod succ (SOLU-MEDRO L) injection 125 mg 07-18 14:00: 00 07-18 13:12 :00 No 125mg 125 mg, Intravenou s, ONCE, 1 dose, On Thu07/18/24 at 0900, 2 mL [facility] oxazepam (SERAX) capsule 15 mg 07-18 13:50: 52 Yes 15mg 15 mg, Oral, Q4HPRN, Starting on Thu07/18/24 at 0850, Until Discontinu ed, Routine, Only while awake for DBP equal to or greater than 100, HR equal to or greater than 100. [facility] proMETHazin e (PHENERGAN) 12.5 mg in NS 50 mL IV piggyback (CNR) 07-18 13:45: 00 07-18 14:29 :00 No 12.5mg 12.5 mg, IV Piggyback, at 200 mL/hr Administer over 15 Minutes, ONCE, 1 dose, On Thu07/18/24 at 0845, [facility] cefTRIAXone (ROCEPHIN) 1,000 mg in NaCl 0.9% (NS) 100 mL MINI-BAG 07-18 13:30: 00 07-18 14:13 :00 No 1000mg 1,000 mg, IV Piggyback, ONCE, 1 dose, On Thu07/18/24 at 0830, Administer over 30 Minutes, 100 mL, Reason for Anti-Infec tive: Documented Infection, Documented Infection Site: Respirator y, Duration of Therapy: Once (ED) [facility] ipratropium -albuteroL (DUONEB) 0.5 mg-3 mg(2.5 mg base)/3 mL nebulizer solution 3 mL 07-18 13:30: 00 07-18 12:47 :00 No 3mL 3 mL, Inhalation , ONCE, 1 dose, On Thu07/18/24 at 0830, [facility] aspirin tablet 325 mg 07-18 13:15: 00 07-18 12:37 :00 No 325mg 325 mg, Oral, ONCE, 1 dose, On Thu07/18/24 at 0815, [facility] NaCl 0.9% (NS) bolus infusion 1,000 mL 07-18 13:00: 00 07-18 14:57 :00 No 1000mL at 999 mL/hr, 1,000 mL, IV Infusion, ONCE, 1 dose, On Thu07/18/24 at 0800, [facility] LORazepam (ATIVAN) injection 1 mg 07-18 12:45: 00 07-18 12:46 :00 No 1mg 1 mg, Slow IV Push, ONCE, 1 dose, On Thu07/18/24 at 0745, STAT [facility] famotidine (PEPCID (PF)) injection 20 mg 07-18 12:15: 00 07-18 12:37 :00 No 20mg 20 mg, Slow IV Push, ONCE, 1 dose, On Thu07/18/24 at 0715, [facility] ondansetron (ZOFRAN (PF)) injection 8 mg 07-18 12:15: 00 07-18 12:37 :00 No 8mg 8 mg, Slow IV Push, ONCE, 1 dose, On Thu07/18/24 at 0715, [facility] albuterol sulfate HFA 90 mcg/actuati on [...] 1 dose, On Thu05/24/24 at 0900, LAURYN [facility] mupirocin 2 % ointment 05-24 00:00: 00 Yes [id number] 6 Apply to area(s) 3 (three) times daily. [facility] cephALEXin 500 mg tablet 05-24 00:00: 00 06-01 04:59 :00 No [id number] 6 500mg Take 1 tablet by mouth 4 (four) times daily for 7 days. [facility] ketorolac (TORADOL) injection 30 mg 02-17 03:15: 00 02-17 15:14 :00 No 30mg 30 mg, Slow IV Push, ONCE, 1 dose, On Thu02/17/24 at 2215, Routine [facility] methylpredn isolone sod succ (SOLU-MEDRO L) injection 125 mg 02-17 03:00: 00 02-17 14:59 :00 No 125mg 125 mg, Intravenou s, ONCE, 1 dose, On Thu02/17/24 at 2200, 2 mL [facility] ipratropium -albuteroL (DUONEB) 0.5 mg-3 mg(2.5 mg base)/3 mL nebulizer solution 6 mL 02-17 03:00: 00 02-17 14:59 :00 No 6mL 6 mL, Inhalation , ONCE NOW, 1 dose, On Thu02/17/24 at 2200, Routine [facility] NaCl 0.9% (NS) bolus infusion 1,000 mL 02-17 03:00: 00 02-17 14:59 :00 No 1000mL at 999 mL/hr, 1,000 mL, IV Infusion, ONCE, 1 dose, On Thu02/17/24 at 2200, LAURYN [facility] triamterene -hydrochlor othiazide 37.5-25 mg per capsule 02-16 20:52: 37 02-16 00:00 :00 No 1{capsu le} Take 1 capsule by mouth every morning. [facility] albuterol 5 mg/mL nebulizer solution 02-16 20:51: 42 02-16 00:00 :00 No 2.5mg Inhale 2.5 mg every 6 (six) hours as needed for Wheezing or Shortness of Breath. [facility] ketorolac (TORADOL) injection 15 mg 02-08 03:00: 00 02-08 02:21 :00 No 15mg 15 mg, Slow IV Push, ONCE, 1 dose, On Thu02/08/24 at 2200, Routine [facility] iopamidol (ISOVUE 370-500 mL) injection 100 mL 02-07 22:30: 00 02-07 22:30 :00 No [id number] 100mL 100 mL, Intravenou s, ONCE, 1 dose, On Thu02/08/24 at 1730, Routine [facility] ipratropium -albuteroL (DUONEB) 0.5 mg-3 mg(2.5 mg base)/3 mL nebulizer solution 3 mL 02-07 21:15: 00 02-07 20:45 :00 No 3mL 3 mL, Inhalation , ONCE, 1 dose, On Thu02/08/24 at 1615, Routine [facility] morpHINE (2 mg/mL) injection 4 mg 02-07 21:15: 00 02-07 20:27 :00 No 4mg 4 mg, Slow IV Push, ONCE, 1 dose, On Thu02/08/24 at 1615, STAT [facility] ondansetron (ZOFRAN (PF)) injection 4 mg 02-07 21:15: 00 02-07 20:22 :00 No 4mg 4 mg, Slow IV Push, ONCE, 1 dose, On Thu02/08/24 at 1615, [facility] magnesium sulfate in water 2 gram/50 mL (4 %) infusion 2 g 02-07 21:00: 00 02-07 21:30 :00 No 2g 2 g, IV Piggyback, Administer over 60 Minutes, ONCE, 1 dose, On Thu02/08/24 at 1600, Routine [facility] ipratropium -albuteroL (DUONEB) 0.5 mg-3 mg(2.5 mg base)/3 mL nebulizer solution 3 mL 02-07 20:30: 00 02-07 19:31 :00 No 3mL 3 mL, Inhalation , ONCE, 1 dose, On Thu02/08/24 at 1530, [facility] HYDROcodone -acetaminop hen (NORCO) 10-325 mg tablet 1 tablet 01-13 13:15: 00 01-13 12:15 :00 No 1{tbl} 1 tablet, Oral, ONCE, 1 dose, On Thu01/14/24 at 0715, [facility] ipratropium -albuteroL (DUONEB) 0.5 mg-3 mg(2.5 mg base)/3 mL nebulizer solution 3 mL 01-13 13:00: 00 01-13 11:53 :00 No 3mL 3 mL, Inhalation , ONCE NOW, 1 dose, On Thu01/14/24 at 0700, [facility] ondansetron (ZOFRAN (PF)) injection 4 mg 01-13 11:30: 00 01-13 11:37 :00 No 4mg 4 mg, Slow IV Push, ONCE, 1 dose, On Thu01/14/24 at 0530, [facility] morpHINE (4 mg/mL) injection 4 mg 01-13 11:30: 00 01-13 11:37 :00 No 4mg 4 mg, Slow IV Push, ONCE, 1 dose, On Thu01/14/24 at 0530, STAT [facility] azithromyci n (ZITHROMAX Z-PORTER) 250 mg tablet 01-13 00:00: 00 02-16 00:00 :00 No [id number] Take 500 mg on day 1 then 250 mg on days 2-5 [facility] predniSONE 20 mg tablet 01-13 00:00: 00 02-16 00:00 :00 No [id number] Take 1 po tid x 2 days, then take 1 po bid x 3 days, then take 1 po daily x 3 days. [facility] acetaminoph en-codeine 300-30 mg tablet 01-13 00:00: 00 01-21 04:59 :00 No [id number] 1{tbl} Take 1 tablet by mouth every 6 (six) hours as needed for Pain (scale 7-10) (severe cough) for up to 7 days. Indication s: acute pain, severe cough [facility] clonazePAM 1 mg tablet 12-26 00:00: 00 02-16 00:00 :00 No 1mg Take 1 tablet by mouth at bedtime as needed for Other (anxiety). [facility] KCL (KLOR-CON M20) tablet 40 mEq 12-23 05:00: 00 12-23 05:07 :00 No 40meq 40 mEq, Oral, ONCE, 1 dose, On Thu12/22/23 at 2300, LAURYN [facility] NaCl 0.9% (NS) bolus infusion 1,000 mL 12-23 05:00: 00 12-23 05:09 :00 No 1000mL at 999 mL/hr, 1,000 mL, IV Infusion, ONCE, 1 dose, On Thu12/22/23 at 2300, LAURYN [facility] ondansetron (ZOFRAN (PF)) injection 4 mg 12-23 04:30: 00 12-23 04:24 :00 No 4mg 4 mg, Slow IV Push, ONCE, 1 dose, On Thu12/22/23 at 2230, [facility] maalox:diph enhydrAMINE :lidocaine 2 % viscous 1:1:1 (FIRST-MOUT HWASH BLM) oral suspension 15 mL 12-23 04:15: 00 12-23 04:17 :00 No 15mL 15 mL, Oral, ONCE, 1 dose, On Thu12/22/23 at 2215, Routine [facility] famotidine (PEPCID (PF)) injection 20 mg 12-23 04:15: 00 12-23 04:15 :00 No 20mg 20 mg, Slow IV Push, ONCE, 1 dose, On Thu12/22/23 at 2215, [facility] HYDROcodone -acetaminop hen (NORCO) 10-325 mg tablet 1 tablet 12-22 04:30: 00 12-22 16:29 :00 No 1{tbl} 1 tablet, Oral, ONCE, 1 dose, On Thu12/21/23 at 2230, Routine [facility] pantoprazol e (PROTONIX) 80 mg in NaCl 0.9% (NS) 20 mL syringe 12-22 04:15: 00 12-22 16:14 :00 No 80mg 80 mg, IV Push, ONCE, 1 dose, On Thu12/21/23 at 2215, Administer over 2 Minutes, 20 mL [facility] iopamidol (ISOVUE 370-500 mL) injection 100 mL 12-22 03:30: 00 12-22 03:30 :00 No [id number] 100mL 100 mL, Intravenou s, ONCE, 1 dose, On Thu12/21/23 at 2130, Routine [facility] morpHINE (4 mg/mL) injection 4 mg 12-22 03:30: 00 12-22 02:16 :00 No 4mg 4 mg, Slow IV Push, ONCE, 1 dose, On Thu12/21/23 at 2130, Routine [facility] ondansetron (ZOFRAN (PF)) injection 4 mg 12-22 02:45: 00 12-22 02:02 :00 No 4mg 4 mg, Slow IV Push, ONCE, 1 dose, On Thu12/21/23 at 2045, Routine [facility] hydrocortis one 25 mg suppository 12-22 00:00: 00 Yes [id number] 25mg Insert 1 Suppositor y into rectum 2 (two) times daily as needed for Rectal itching/pa in. [facility] ondansetron 4 mg disintegrat ing tablet 12-22 00:00: 00 02-16 00:00 :00 No [id number] 4mg Take 1 tablet by mouth every 8 (eight) hours as needed for Nausea and Vomiting (N/V). [facility] amoxicillin -clavulanat e 875-125 mg per tablet 12-22 00:00: 00 01-02 05:59 :00 No [id number] 1{tbl} Take 1 tablet by mouth every 12 (twelve) hours for 10 days. [facility] methylpredn isolone sod succ (SOLU-MEDRO L) injection 125 mg 2022-11 08:45: 00 10-27 20:44 :00 No 125mg 125 mg, Slow IV Push, ONCE, 1 dose, On Thu10/27/23 at 0245, STAT [facility] ipratropium -albuteroL (DUONEB) 0.5 mg-3 mg(2.5 mg base)/3 mL nebulizer solution 3 mL 2022-11 08:45: 00 10-27 20:44 :00 No 3mL 3 mL, Inhalation , ONCE NOW, 1 dose, On Thu10/27/23 at 0245, LAURYN [facility] diazePAM (VALIUM) tablet 10 mg 2022-11 07:45: 00 10-27 19:44 :00 No 10mg 10 mg, Oral, ONCE, 1 dose, On Thu10/27/23 at 0145, LAURYN [facility] levoFLOXaci n (LEVAQUIN) tablet 500 mg 2022-11 07:45: 00 10-27 19:44 :00 No 500mg 500 mg, Oral, ONCE, 1 dose, On Thu10/27/23 at 0145, LAURYN
Re ason for Anti-Infec tive: Empiric Non-Surgic al Prophylaxi s
Durat ion of therapy: Once (ED) [facility] DICLOFEN SOD 75MG EC 04-08 00:00: 00 Yes Tunde Haro AZITHROMYCI N 250MG 04-08 00:00: 00 Yes Tunde Haro PREDNISONE 10MG -08 00:00: 00 Yes Tunde Haro TAKE ONE (1) TABLET(S) BY MOUTH ONCE A DAY. 03-13 00:00: 00 Yes Tunde Haro AMLODIPINE 10MG - 00:00: 00 Yes Tunde Haor CLONAZEPAM 1MG -28 00:00: 00 Yes Tunde [...] 00:00: 00 Yes Tunde Haro AMOX/K CLAV 672-100 [id number] 3-03 00:00: 00 Yes Tunde Haro iopamidol (ISOVUE 370-500 mL) injection 70 mL 2021-11- 18:30: 00 10-14 18:30 :00 No [id number] 70mL 70 mL, Intravenou s, ONCE, 1 dose, On Thu10/14/22 at 1230, Routine [facility] methylpredn isolone sod succ (SOLU-MEDRO L) injection 125 mg 2021-11 18:00: 00 Yes 125mg 125 mg, Intravenou s, Q6H, First dose on Thu10/14/22 at 1200, Until Discontinu ed, Routine [facility] furosemide (LASIX) injection 40 mg 2021-11 17:45: 00 10-14 16:39 :00 No 40mg 40 mg, IV Push, ONCE, 1 dose, On Thu10/14/22 at 1145, LAURYN [facility] ipratropium -albuteroL (DUONEB) 0.5 mg-3 mg(2.5 mg base)/3 mL nebulizer solution 3 mL 2021-11 17:30: 00 10-14 16:41 :00 No 3mL 3 mL, Inhalation , ONCE, 1 dose, On Thu10/14/22 at 1130, Routine [facility] FENTanyl PF (SUBLIMAZE (PF)) injection 50 mcg 2021-11 16:45: 00 10-14 16:39 :00 No 50ug 50 mcg, Slow IV Push, ONCE, 1 dose, On Thu10/14/22 at 1045, Routine [facility] levoFLOXaci n 750 mg tablet 2021-11 00:00: 00 02-16 00:00 :00 No [id number] 750mg Take 1 tablet by mouth every 24 (twenty-fo ur) hours. [facility] HYDROcodone -acetaminop hen (NORCO) 10-325 mg tablet 1 tablet 03-12 12:15: 00 03-12 11:21 :00 No 1{tbl} 1 tablet, Oral, ONCE, 1 dose, On Thu03/12/22 at 0715, Routine [facility] HYDROcodone -acetaminop hen 10-325 mg tablet 03-12 00:00: 00 03-20 04:59 :00 No [id number] 1{tbl} Take 1 tablet by mouth every 6 (six) hours as needed for Pain (scale 7-10) for up to 7 days. Indication s: acute pain [facility] ipratropium -albuteroL (DUONEB) 0.5 mg-3 mg(2.5 mg base)/3 mL nebulizer solution 3 mL 02-20 13:00: 00 Yes 3mL 3 mL, Inhalation , QID, First dose on Thu02/20/22 at 0800, Until Discontinu ed, Routine [facility] methylPREDN ISolone sod succ (SOLU-MEDRO L (PF)) injection 40 mg 02-20 11:45: 00 02-20 10:43 :00 No 40mg 40 mg, Intravenou s, ONCE, 1 dose, On Thu02/20/22 at 0645, STAT [facility] foLIC acid (FOLATE) tablet 1 mg 02-20 11:45: 00 02-20 10:41 :00 No 1mg 1 mg, Oral, ONCE, 1 dose, On Thu02/20/22 at 0645, LAURYN [facility] thiamine (VITAMIN B1) injection 100 mg 02-20 11:45: 00 02-20 10:43 :00 No 100mg 100 mg, Intravenou s, ONCE, 1 dose, On Thu02/20/22 at 0645, LAURYN [facility] LORazepam (ATIVAN) injection 2 mg 02-20 11:45: 00 02-20 10:42 :00 No 2mg 2 mg, Slow IV Push, ONCE, 1 dose, On Kym 02/20/22 at 0645, STAT [facility] ipratropium -albuteroL (DUONEB) 0.5 mg-3 mg(2.5 mg base)/3 mL nebulizer solution 3 mL 02-20 10:30: 00 02-20 09:34 :00 No 3mL 3 mL, Inhalation , ONCE, 1 dose, On Thu02/20/22 at 0530, Routine [facility] triamterene -hydrochlor othiazid 37.5-25 mg tablet 02-20 00:00: 00 Yes [id number] 1{tbl} Take 1 tablet by mouth daily. [facility] albuterol 90 mcg/actuati on inhaler 02-20 00:00: 00 07-20 00:00 :00 No [id number] 2{puff} Inhale 2 Puffs every 4 (four) hours as needed for Wheezing or Shortness of Breath. [facility] chlordiazeP OXIDE 25 mg capsule 02-20 00:00: 00 07-20 00:00 :00 No [id number] 25mg Take 1 capsule by mouth every 6 (six) hours as needed for Anxiety, Agitation, Heart Rate => 100 or Detox. [facility] predniSONE 10 mg tablet 02-20 00:00: 00 02-16 00:00 :00 No [id number] TAKE ONE TABLET BY MOUTH DAILY [facility] albuterol 2.5 mg /3 mL (0.083 %) nebulizer solution 02-20 00:00: 00 02-16 00:00 :00 No [id number] 2.5mg Inhale 3 mL every 4 (four) hours. May also nebulize one extra every 6 hours. [facility] budesonide- formoteroL 160-4.5 mcg/actuati on inhaler 02-20 00:00: 00 02-16 00:00 :00 No [id number] 2{puff} Inhale 2 Puffs 2 (two) times daily. [facility] albuterol 5 mg/mL nebulizer solution 07-16 14:02: 20 Yes 2.5mg Inhale 2.5 mg every 6 (six) hours as needed for Wheezing or Shortness of Breath. [facility] budesonide- formoterol 160-4.5 mcg/actuati on inhaler 07-16 00:00: 00 Yes 2{puff} Inhale 2 Puffs 2 (two) times daily. [facility] albuterol 2.5 mg /3 mL (0.083 %) nebulizer solution 07-16 00:00: 00 Yes 2.5mg Inhale 3 mL every 4 (four) hours as needed for Wheezing or Shortness of Breath. [facility] triamterene -hydrochlor othiazide 37.5-25 mg per capsule 03-26 16:32: 14 Yes 1{capsu le} Take 1 capsule by mouth every morning. [facility] amLODIPine 10 mg tablet 03-26 16:32: 14 Yes 10mg Take 10 mg by mouth at bedtime. [facility] gabapentin 100 mg capsule 03-26 16:32: 14 Yes 100mg Take 100 mg by mouth 2 (two) times daily as needed ([facility]K pain). [facility] foLIC acid 1 mg tablet 03-26 16:32: 14 Yes 1mg Take 1 mg by mouth daily. [facility] budesonide- formoterol 160-4.5 mcg/actuati on inhaler 03-26 00:00: 00 02-16 00:00 :00 No 2{puff} Inhale 2 Puffs 2 (two) times daily. [facility] Immunizations Ordered Immunization Name Filled Immunization Name Date Status Comments Source SARS-COV-2 COVID-19 PFIZER VACCINE 2021-02-03 00:00:00 Completed [facility] SARS-COV-2 COVID-19 PFIZER VACCINE 2021-02-03 00:00:00 Completed [facility] SARS-COV-2 COVID-19 PFIZER VACCINE 2021-02-03 00:00:00 Completed [facility] SARS-COV-2 COVID-19 PFIZER VACCINE 2021-01-13 00:00:00 Completed [facility] SARS-COV-2 COVID-19 PFIZER VACCINE 2021-01-13 00:00:00 Completed [facility] SARS-COV-2 COVID-19 PFIZER VACCINE 2021-01-13 00:00:00 Completed [facility] Pneumococcal Polysaccharide, PPSV23 (PNEUMOVAX) 2018-03-26 00:00:00 Completed [facility] Influenza Virus Vaccine Quad IM 3+ YRS 2018-03-26 00:00:00 Completed [facility] Pneumococcal Polysaccharide, PPSV23 (PNEUMOVAX) 2018-03-26 00:00:00 Completed [facility] Influenza Virus Vaccine Quad IM 3+ YRS 2018-03-26 00:00:00 Completed [facility] Pneumococcal Polysaccharide, PPSV23 (PNEUMOVAX) 2018-03-26 00:00:00 Completed [facility] Influenza Virus Vaccine Quad IM 3+ YRS 2018-03-26 00:00:00 Completed [facility] Pneumococcal Polysaccharide, PPSV23 (PNEUMOVAX) Unknown [facility]pleted [facility] Influenza Virus Vaccine Quad IM 3+ YRS Unknown Completed [facility] SARS-COV-2 COVID-19 PFIZER VACCINE Unknown Completed [facility] Pneumococcal Polysaccharide, PPSV23 (PNEUMOVAX) Unknown Completed [facility] Influenza Virus Vaccine Quad IM 3+ YRS Unknown Completed [facility] SARS-COV-2 COVID-19 PFIZER VACCINE Unknown Completed [facility] Pneumococcal Polysaccharide, PPSV23 (PNEUMOVAX) Unknown Completed [facility] Influenza Virus Vaccine Quad IM 3+ YRS Unknown Completed [facility] SARS-COV-2 COVID-19 PFIZER VACCINE Unknown Completed [facility] Pneumococcal Polysaccharide, PPSV23 (PNEUMOVAX) Unknown Completed [facility] Influenza Virus Vaccine Quad IM 3+ YRS Unknown Completed [facility] SARS-COV-2 COVID-19 PFIZER VACCINE Unknown Completed [facility] Pneumococcal Polysaccharide, PPSV23 (PNEUMOVAX) Unknown Completed [facility] Influenza Virus Vaccine Quad IM 3+ YRS Unknown Completed [facility] SARS-COV-2 COVID-19 PFIZER VACCINE Unknown Completed [facility] Pneumococcal Polysaccharide, PPSV23 (PNEUMOVAX) Unknown Completed [facility] Influenza Virus Vaccine Quad IM 3+ YRS Unknown Completed [facility] SARS-COV-2 COVID-19 PFIZER VACCINE Unknown Completed [facility] Pneumococcal Polysaccharide, PPSV23 (PNEUMOVAX) Unknown Completed [facility] Influenza Virus Vaccine Quad IM 3+ YRS Unknown Completed [facility] SARS-COV-2 COVID-19 PFIZER VACCINE Unknown Completed [facility] Pneumococcal Polysaccharide, PPSV23 (PNEUMOVAX) Unknown Completed [facility] Influenza Virus Vaccine Quad IM 3+ YRS Unknown Completed [facility] SARS-COV-2 COVID-19 PFIZER VACCINE Unknown Completed [facility] Pneumococcal Polysaccharide, PPSV23 (PNEUMOVAX) Unknown Completed [facility] Influenza Virus Vaccine Quad IM 3+ YRS Unknown Completed [facility] SARS-COV-2 COVID-19 PFIZER VACCINE Unknown Completed [facility] Pneumococcal Polysaccharide, PPSV23 (PNEUMOVAX) Unknown Completed [facility] Influenza Virus Vaccine Quad IM 3+ YRS Unknown Completed [facility] SARS-COV-2 COVID-19 PFIZER VACCINE Unknown Completed [facility] Pneumococcal Polysaccharide, PPSV23 (PNEUMOVAX) Unknown Completed [facility] Influenza Virus Vaccine Quad IM 3+ YRS Unknown Completed [facility] SARS-COV-2 COVID-19 PFIZER VACCINE Unknown Completed [facility] Pneumococcal Polysaccharide, PPSV23 (PNEUMOVAX) Unknown Completed [facility] Influenza Virus Vaccine Quad IM 3+ YRS Unknown Completed [facility] SARS-COV-2 COVID-19 PFIZER VACCINE Unknown Completed [facility] Vital Signs Vital Name Observation Time Observation Value Comments S ource Systolic blood pressure 2024-07-23 18:00:00 175 mm[Hg] [facility] Diastolic blood pressure 2024-07-23 18:00:00 109 mm[Hg] [facility] Heart rate 2024-07-23 18:00:00 87 /min [facility] Respiratory rate 2024-07-23 18:00:00 16 /min [facility] Oxygen saturation in Arterial blood by Pulse oximetry 2024-07-23 18:00:00 100 /min [facility] Body temperature 2024-07-23 16:15:00 36.61 Debbie [facility] Body height 2024-07-23 16:15:00 162.6 cm [facility] Body weight 2024-07-23 16:15:00 123.832 kg [facility] BMI 2024-07-23 16:15:00 46.86 kg/m2 [facility] Heart rate 2024-07-20 19:15:00 116 /[facility] Respiratory rate 2024-07-20 19:15:00 10 /min [facility] Oxygen saturation in Arterial blood by Pulse oximetry 2024-07-20 19:15:00 100 /min [facility] Systolic blood pressure 2024-07-20 17:00:00 149 mm[Hg] [facility] Diastolic blood pressure 2024-07-20 17:00:00 131 mm[Hg] [facility] Body temperature 2024-07-20 16:00:00 37.06 Debbie [facility] Body weight 2024-07-20 08:00:00 82.5 kg [facility] BMI 2024-07-20 08:00:00 31.22 kg/m2 [facility] Body height 2024-07-18 14:23:00 162.6 cm [facility] Systolic blood pressure 2024-07-18 01:00:00 176 mm[Hg] [facility] Diastolic blood pressure 2024-07-18 01:00:00 88 mm[Hg] [facility] Heart rate 2024-07-18 01:00:00 113 /min [facility] Respiratory rate 2024-07-18 01:00:00 18 /min [facility] Oxygen saturation in Arterial blood by Pulse oximetry 2024-07-18 01:00:00 95 /min [facility] Body temperature 2024-07-18 00:52:00 37.33 Debbie [facility] Body height 2024-07-18 00:52:00 162.6 cm [facility] Body weight 2024-07-18 00:52:00 122.925 kg [facility] BMI 2024-07-18 00:52:00 46.52 kg/m2 [facility] Systolic blood pressure 2024-05-24 13:51:42 157 mm[Hg] [facility] Diastolic blood pressure 2024-05-24 13:51:42 93 mm[Hg] [facility] Heart rate 2024-05-24 13:51:42 98 /min [facility] Respiratory rate 2024-05-24 13:51:42 18 /min [facility] Oxygen saturation in Arterial blood by Pulse oximetry 2024-05-24 13:51:42 97 /min [facility] Body temperature 2024-05-24 13:36:00 36.78 Debbie [facility] Body height 2024-05-24 13:36:00 162.6 cm [facility] Body weight 2024-05-24 13:36:00 78.472 kg [facility] BMI 2024-05-24 13:36:00 29.70 kg/m2 [facility] Systolic blood pressure 2024-02-18 01:57:00 134 mm[Hg] [facility] Diastolic blood pressure 2024-02-18 01:57:00 94 mm[Hg] [facility] Body height 2024-02-18 01:57:00 162.6 cm [facility] Body weight 2024-02-18 01:57:00 79.379 kg [facility] BMI 2024-02-18 01:57:00 30.04 kg/m2 [facility] Heart rate 2024-02-18 01:53:00 110 /min [facility] Body temperature 2024-02-18 01:53:00 36.61 Debbie [facility] Respiratory rate 2024-02-18 01:53:00 24 /min [facility] Oxygen saturation in Arterial blood by Pulse oximetry 2024-02-18 01:53:00 93 /min [facility] Systolic blood pressure 2024-02-09 01:54:05 150 mm[Hg] [facility] Diastolic blood pressure 2024-02-09 01:54:05 91 mm[Hg] [facility] Heart rate 2024-02-09 01:54:05 87 /min [facility] Respiratory rate 2024-02-09 01:54:05 17 /min [facility] Oxygen saturation in Arterial blood by Pulse oximetry 2024-02-09 01:54:05 93 /min [facility] Body temperature 2024-02-09 01:45:00 36.67 Debbie [facility] Body height 2024-02-09 01:45:00 162.6 cm [facility] Body weight 2024-02-09 01:45:00 81.194 kg [facility] BMI 2024-02-09 01:45:00 30.73 kg/m2 [facility] Respiratory rate 2024-02-08 21:00:00 18 /min [facility] Oxygen saturation in Arterial blood by Pulse oximetry 2024-02-08 21:00:00 96 /min [facility] Systolic blood pressure 2024-02-08 20:27:00 164 mm[Hg] [facility] Diastolic blood pressure 2024-02-08 20:27:00 90 mm[Hg] [facility] Heart rate 2024-02-08 20:27:00 83 /min [facility] Body temperature 2024-02-08 19:12:00 36.83 Debbie [facility] Body height 2024-02-08 19:12:00 162.6 cm [facility] Body weight 2024-02-08 19:12:00 81.194 kg [facility] BMI 2024-02-08 19:12:00 30.73 kg/m2 [facility] Heart rate 2024-01-14 12:15:00 98 /min [facility] Body temperature 2024-01-14 12:15:00 36.56 Debbie [facility] Respiratory rate 2024-01-14 12:15:00 14 /min [facility] Oxygen saturation in Arterial blood by Pulse oximetry 2024-01-14 12:15:00 95 /min [facility] Systolic blood pressure 2024-01-14 12:00:00 140 mm[Hg] [facility] Diastolic blood pressure 2024-01-14 12:00:00 90 mm[Hg] [facility] Body height 2024-01-14 10:51:00 162.6 cm [facility] Body weight 2024-01-14 10:51:00 81.194 kg [facility] BMI 2024-01-14 10:51:00 30.73 kg/m2 [facility] Systolic blood pressure 2023-12-23 05:02:00 133 mm[Hg] [facility] Diastolic blood pressure 2023-12-23 05:02:00 84 mm[Hg] [facility] Heart rate 2023-12-23 05:02:00 78 /min [facility] Body temperature 2023-12-23 05:02:00 36.17 Debbie [facility] Respiratory rate 2023-12-23 05:02:00 17 /min [facility] Oxygen saturation in Arterial blood by Pulse oximetry 2023-12-23 05:02:00 91 /min [facility] Body height 2023-12-23 03:45:00 162.6 cm [facility] Body weight 2023-12-23 03:45:00 81.194 kg [facility] BMI 2023-12-23 03:45:00 30.73 kg/m2 [facility] Systolic blood pressure 2023-12-22 02:08:00 143 mm[Hg] [facility] Diastolic blood pressure 2023-12-22 02:08:00 92 mm[Hg] [facility] Heart rate 2023-12-22 02:08:00 81 /min [facility] Respiratory rate 2023-12-22 02:08:00 13 /min [facility] Oxygen saturation in Arterial blood by Pulse oximetry 2023-12-22 02:08:00 95 /min [facility] Body temperature 2023-12-22 01:33:00 36.72 Debbie [facility] Body height 2023-12-22 01:33:00 162.6 cm [facility] Body weight 2023-12-22 01:33:00 81.239 kg [facility] BMI 2023-12-22 01:33:00 30.74 kg/m2 [facility] Systolic blood pressure 2023-11-11 02:00:00 127 mm[Hg] [facility] Diastolic blood pressure 2023-11-11 02:00:00 87 mm[Hg] [facility] Heart rate 2023-11-11 02:00:00 79 /min [facility] Respiratory rate 2023-11-11 02:00:00 20 /min [facility] Oxygen saturation in Arterial blood by Pulse oximetry 2023-11-11 02:00:00 98 /min [facility] Body temperature 2023-11-11 01:31:00 36.28 Debbie [facility] Body height 2023-11-11 01:31:00 162.6 cm [facility] Body weight 2023-11-11 01:31:00 79.379 kg [facility] BMI 2023-11-11 01:31:00 30.04 kg/m2 [facility] Systolic blood pressure 2023-10-27 06:54:00 133 mm[Hg] [facility] Diastolic blood pressure 2023-10-27 06:54:00 94 mm[Hg] [facility] Heart rate 2023-10-27 06:54:00 95 /min [facility] Body temperature 2023-10-27 06:54:00 36.44 Debbie [facility] Respiratory rate 2023-10-27 06:54:00 22 /min [facility] Body height 2023-10-27 06:54:00 162.6 cm [facility] Body weight 2023-10-27 06:54:00 78.472 kg [facility] BMI 2023-10-27 06:54:00 29.70 kg/m2 [facility] Oxygen saturation in Arterial blood by Pulse oximetry 2023-10-27 06:54:00 94 /min [facility] Systolic blood pressure 2022-10-14 19:43:00 111 mm[Hg] [facility] Diastolic blood pressure 2022-10-14 19:43:00 74 mm[Hg] [facility] Heart rate 2022-10-14 19:43:00 98 /min [facility] Body temperature 2022-10-14 19:43:00 36.39 Debbie [facility] Respiratory rate 2022-10-14 19:43:00 22 /min [facility] Oxygen saturation in Arterial blood by Pulse oximetry 2022-10-14 19:43:00 94 /min [facility] Body height 2022-10-14 16:13:00 162.6 cm [facility] Body weight 2022-10-14 16:13:00 81.647 kg [facility] BMI 2022-10-14 16:13:00 30.90 kg/m2 [facility] Systolic blood pressure 2022-03-12 10:13:00 119 mm[Hg] [facility] Diastolic blood pressure 2022-03-12 10:13:00 75 mm[Hg] [facility] Heart rate 2022-03-12 10:13:00 105 /min [facility] Body temperature 2022-03-12 10:13:00 37.28 Debbie [facility] Respiratory rate 2022-03-12 10:13:00 19 /min [facility] Body height 2022-03-12 10:13:00 162.6 cm [facility] Body weight 2022-03-12 10:13:00 99.791 kg [facility] BMI 2022-03-12 10:13:00 37.76 kg/m2 [facility] Oxygen saturation in Arterial blood by Pulse oximetry 2022-03-12 10:13:00 96 /min [facility] Systolic blood pressure 2022-02-20 11:57:00 155 mm[Hg] [facility] Diastolic blood pressure 2022-02-20 11:57:00 88 mm[Hg] [facility] Heart rate 2022-02-20 11:57:00 105 /min [facility] Respiratory rate 2022-02-20 11:57:00 18 /min [facility] Oxygen saturation in Arterial blood by Pulse oximetry 2022-02-20 11:57:00 100 /min [facility] Body temperature 2022-02-20 09:25:00 37 Debbie [facility] Body height 2022-02-20 09:25:00 162.6 cm [facility] Body weight 2022-02-20 09:25:00 96.163 kg [facility] BMI 2022-02-20 09:25:00 36.39 kg/m2 [facility] Respiratory Rate 2024-05-26 13:39:00 16.00 /min [...] Source EKG-12 LEAD 2024-07-23 19:32:17 Yary Camp [facility] LACTIC ACID WHOLE BLOOD 2024-07-23 18:23:00 Mike Camp [facility] LIPASE 2024-07-23 17:05:00 Kathrin Yary G [facility] TROPONIN I 2024-07-23 17:05:00 Kathrin Yary G [facility] COMP. METABOLIC PANEL ([id number]) 2024-07-23 17:05:00 Yary Camp [facility] ETHANOL 2024-07-23 17:05:00 Yary Camp [facility] CBC WITH DIFF 2024-07-23 17:05:00 Yary Camp [facility] N-TERMINAL PRO-BNP 2024-07-23 17:05:00 Yary Camp [facility] HB ECG ROUTINE & RHYTHM STRIP 2024-07-20 14:13:43 Julien Marks [facility] MAGNESIUM 2024-07-20 08:21:00 Julien Marks [facility] BASIC METABOLIC PANEL (NA, K, CL, CO2, GLUCOSE, BUN, CREATININE, CA) 2024-07-20 08:21:00 Julien Marks [facility] CBC WITH DIFF 2024-07-20 08:21:00 Julien Marks [facility] MAGNESIUM 2024-07-19 09:24:00 Julien Marks [facility] BASIC METABOLIC PANEL (NA, K, CL, CO2, GLUCOSE, BUN, CREATININE, CA) 2024-07-19 09:24:00 Julien Marks [facility] CBC WITH DIFF 2024-07-19 09:24:00 Julien Marks [facility] LEGIONELLA AND STREPTOCOCCUS PNEUMONIAE URINARY ANTIGENS 2024-07-19 02:12:00 Julien Marks [facility] PROCALCITONIN 2024-07-18 21:39:00 Julien Marks [facility] LACTIC ACID WHOLE BLOOD 2024-07-18 15:51:00 Alfred Marks [facility] URINE DRUG (IMMUNOASSAY) - COMPREHENSIVE DRUG SCREEN W/O REFLEX 2024-07-18 15:31:00 Blu Mcguire [facility] MRSA / MSSA SCREEN BY PCR, NARES 2024-07-18 14:47:00 Julien Marks [facility] CT THORAX WO CONTRAST 2024-07-18 14:42:00 Rajinder Marks [facility] BLOOD CULTURE SCREEN 2024-07-18 13:01:00 Shay Stinson [facility] LACTIC ACID WHOLE BLOOD 2024-07-18 13:01:00 Facundo Stinson [facility] INFLUENZA A/B RSV COVID NAAT 2024-07-18 12:49:00 Shay Stinson [facility] LAB ONLY COVID INTERPRETATION 2024-07-18 12:49:00 Shay Stinson [facility] COMP. METABOLIC PANEL ([id number]) 2024-07-18 12:21:00 Blu Mcguire [facility] CRITICAL CARE 2024-07-18 12:12:28 Shay Stinson [facility] XR CHEST 1 VW 2024-07-18 11:40:27 Blu Mcguire [facility] TROPONIN I 2024-07-18 11:18:00 Blu Mcguire [facility] ETHANOL 2024-07-18 11:18:00 Blu Mcguire [facility] CBC WITH DIFF 2024-07-18 11:18:00 Blu Mcguire [facility] N-TERMINAL PRO-BNP 2024-07-18 11:18:00 Blu Mcguire [facility] HB ECG ROUTINE & RHYTHM STRIP 2024-07-18 11:10:41 Blu Mcguire [facility] XR CHEST 1 VW 2024-07-18 01:34:48 Blu Mcguire [facility] TROPONIN I 2024-07-18 00:56:00 [facility] COMP. METABOLIC PANEL ([id number]) 2024-07-18 00:56:00 Blu Mcguire [facility] ETHANOL 2024-07-18 00:56:00 Blu Mcguire [facility] CBC WITH DIFF 2024-07-18 00:56:00 Blu Mcguire [facility] N-TERMINAL PRO-BNP 2024-07-18 00:56:00 Blu Mcguire [facility] AC PANEL 20 + LACTIC ACID 2024-02-08 20:47:00 Christina Villarreal [facility] XR CHEST 1 VW 2024-02-08 19:47:00 Christina Villarreal [facility] URINALYSIS 2024-02-08 19:36:00 Christina Villarreal [facility] MAGNESIUM 2024-02-08 19:25:00 [facility] TROPONIN I 2024-02-08 19:25:00 [facility] COMP. METABOLIC PANEL ([id number]) 2024-02-08 19:25:00 Christina Villarreal [facility] ETHANOL 2024-02-08 19:25:00 Christina Villarreal [facility] CBC WITH DIFF 2024-02-08 19:25:00 Christina Villarreal [facility] N-TERMINAL PRO-BNP 2024-02-08 19:25:00 Chrisitna Villarreal [facility] EKG-12 LEAD 2024-01-14 12:00:51 Jac Navarro [facility] LIPASE 2024-01-14 11:11:00 Jac Navarro [facility] TROPONIN I 2024-01-14 11:11:00 Jac Navarro [facility] COMP. METABOLIC PANEL ([id number]) 2024-01-14 11:11:00 Jac Navarro [facility] ETHANOL 2024-01-14 11:11:00 Jac Navarro [facility] CBC WITH DIFF 2024-01-14 11:11:00 [facility] N-TERMINAL PRO-BNP 2024-01-14 11:11:00 Jac Navarro [facility] COVID-19 (ID NOW RAPID TESTING) 2024-01-14 11:11:00 Jac Navarro [facility] CONSENT/REFUSAL FOR DIAGNOSIS AND TREATMENT 2024-01-14 10:44:32 Doctor Unassigned, Violet [facility] LIPASE 2023-12-23 04:17:00 Cailin Rowe [facility] COMP. METABOLIC PANEL ([id number]) 2023-12-23 04:17:00 Cailin Rowe [facility] CBC WITH DIFF 2023-12-23 04:17:00 [facility] 2023-12-23 04:17:00 Cailin Rowe [facility] CONSENT/REFUSAL FOR DIAGNOSIS AND TREATMENT 2023-12-23 03:40:32 Doctor Unassigned, Violet [facility] CT ABDOMEN PELVIS W CONTRAST 2023-12-22 02:31:05 Quentin Maciel [facility] LIPASE 2023-12-22 01:58:00 Quentin Maciel [facility] COMP. METABOLIC PANEL ([id number]) 2023-12-22 01:58:00 Quentin Maciel [facility] ETHANOL 2023-12-22 01:58:00 Quentin Maciel [facility] CBC WITH DIFF 2023-12-22 01:58:00 Quentin Maciel [facility] PROTHROMBIN TIME / INR 2023-12-22 01:58:00 Wali Maciel [facility] URINALYSIS 2023-12-22 01:58:00 [facility] CONSENT/REFUSAL FOR DIAGNOSIS AND TREATMENT 2023-12-22 01:19:14 Doctor Unassigned, Violet [facility] NOTICE OF PRIVACY PRACTICES 2023-11-11 01:24:24 Doctor Unassigned, Violet [facility] CONSENT/REFUSAL FOR DIAGNOSIS AND TREATMENT 2023-11-11 01:23:54 Doctor Unassigned, Violet [facility] COVID-19 (ID NOW RAPID TESTING) 2023-10-27 07:09:00 Jac Navarro [facility] NOTICE OF PRIVACY PRACTICES 2023-10-27 06:49:48 Doctor Unassigned, Violet [facility] CONSENT/REFUSAL FOR DIAGNOSIS AND TREATMENT 2023-10-27 06:47:40 Doctor Unassigned, Violet [facility] CT ABDOMEN PELVIS W CONTRAST 2022-10-14 17:33:00 Quentin Maciel [facility] XR CHEST 1 VW 2022-10-14 17:10:37 Singer [facility] TROPONIN I 2022-10-14 16:37:00 [facility] COMP. METABOLIC PANEL (74888) 2022-10-14 16:37:00 [facility] DIFF 2022-10-14 16:37:00 Quentin Maciel [facility] PROTHROMBIN TIME / INR 2022-10-14 16:37:00 [facility] 2022-10-14 16:37:00 [facility] N-TERMINAL PRO-BNP 2022-10-14 16:37:00 Quentin Maciel [facility] CONSENT/REFUSAL FOR DIAGNOSIS AND TREATMENT 2022-10-14 15:56:36 Doctor Unassigned, Violet [facility] CONSENT/REFUSAL FOR DIAGNOSIS AND TREATMENT 2022-03-12 10:03:12 Doctor Unassigned, Violet [facility] XR CHEST 1 VW 2022-02-20 09:59:00 Christy Holliday [facility] LIPASE 2022-02-20 09:30:00 Christy Holliday [facility] TROPONIN I 2022-02-20 09:30:00 Christy Holliday [facility] COMP. METABOLIC PANEL (05801) 2022-02-20 09:30:00 Christy Holliday [facility] CBC WITH DIFF 2022-02-20 09:30:00 Christy Holliday [facility] N-TERMINAL PRO-BNP 2022-02-20 09:30:00 Christy Holliday [facility] NOTICE OF PRIVACY PRACTICES 2022-02-20 09:15:02 Doctor Unassigned, Violet [facility] CONSENT/REFUSAL FOR DIAGNOSIS AND TREATMENT 2022-02-20 09:14:47 Doctor Unassigned, Violet [facility] Encounters Start Date/Time End Date/Time Encounter Type Admission Type Attending [facility] Facility Care Department Encounter ID Source 2024-07-23 11:09:00 2024-07-23 13:55:00 Emergency X YARY CMAP PAMALA [facility] ERT [id number] [facility] 2024-07-23 11:09:00 2024-07-23 13:55:00 Emergency Yary Camp [facility] 1.2.840.114 350.1.13.10 4.2.7.2.686 [id number] [facility] 2024-07-18 06:09:00 2024-07-20 15:00:00 Inpatient X JULIEN MARKS [facility] JOÃO [id number] [facility] 2024-07-18 06:09:00 2024-07-20 15:00:00 Hospital Encounter Blu Mcguire [facility] Lee Morris, David [facility] 1.2.840.114 350.1.13.10 4.2.7.2.686 [id number] [facility] 2024-07-17 19:49:00 2024-07-17 21:02:00 Emergency X LAUREEN MCGUIREBLU SANDERS [facility] ERT [id number] [facility] 2024-07-17 19:49:00 2024-07-17 21:02:00 Emergency Maynor Blu [facility] 1.2.840.114 350.1.13.10 4.2.7.2.686 [id number] [facility] 2024-06-06 10:15:00 2024-06-06 10:15:00 Outpatient WENDY BROWNLEE [id number] Maria Elena Alcantara 2024-05-26 13:21:21 2024-05-26 13:21:21 Outpatient SFA SFA [id number] Tunde Haro 2024-05-26 00:00:00 2024-05-26 00:00:00 Outpatient Visit [facility] [id number] Tunde Haro 2024-05-24 08:36:00 2024-05-24 09:39:00 Emergency X MYRNA SANDHU [facility] ERT [id number] [facility] 2024-05-24 08:36:00 2024-05-24 09:39:00 Emergency Mil Myrna [facility] ..840.114 350.1.13.10 4.2.7.2.686 [id number] [facility] 2024-04-14 16:30:00 2024-04-14 16:30:00 Outpatient DARIEN LOBO [id number] Maria Eelna Alcantara 2024-04-12 11:00:00 2024-04-12 11:00:00 Outpatient MINNA ORTA MARIA ELENA BECERRA [id number] Maria Elena [facility] 2024-04-12 11:00:00 2024-04-12 11:00:00 Outpatient KEMWENDY POPE [facility] [id number] [facility]24-[facility]12 00:00:00 2024-04-12 00:00:00 Outpatient SHARATH HALEY MARIA ELENA BECERRA [id number] Maria Elena [facility] 2024-04-05 11:30:00 2024-04-05 11:30:00 Outpatient ALFREDONIURKADARIEN Olson MARIA ELENA BECERRA [id number] Maria Elena [facility] 2024-04-05 00:00:00 2024-04-05 00:00:00 Outpatient DARIEN LOBO MARIA ELENA BECERRA [id number] [facility] 2024-03-28 00:00:00 2024-03-28 00:00:00 Outpatient DARIEN LOBO MARIA ELENA BECERRA [id number] [facility] 2024-03-15 08:30:00 2024-03-15 08:30:00 Outpatient WENDY BROWNLEE MARIA ELENA BECERRA [id number] [facility] 2024-02-17 20:58:00 2024-02-17 21:44:00 Emergency X SALUDYARY JOHN [facility] ERT [id number] [facility] 2024-02-17 20:58:00 2024-02-17 21:44:00 Emergency Yary Camp [facility] 1.2.840.114 350.1.13.10 4.2.7.2.686 [id number] [facility] 2024-02-09 13:10:00 2024-02-09 15:14:00 Emergency E TUNDE QUINTANILLA [facility] [id number] [address] [place] [address] 2024-02-08 20:38:00 2024-02-08 21:40:00 Emergency X KEISHA DAVENPORT [facility] ERT [id number] [facility] 2024-02-08 20:38:00 2024-02-08 21:40:00 Emergency Keisha Davenport [facility] 1.2.840.114 350.1.13.10 4.2.7.2.686 [id number] [facility] 2024-02-08 14:08:00 2024-02-08 17:06:00 Emergency Christina Villarreal [facility] 1.2.840.114 350.1.13.10 4.2.7.2.686 [id number] [facility] 2024-01-14 04:46:00 2024-01-14 06:23:00 Emergency X TERESSA JAC [facility] ERT [id number] [facility] 2024-01-14 04:46:00 2024-01-14 06:23:00 Emergency Jac Navarro [facility] 1.2.840.114 350.1.13.10 4.2.7.2.686 [id number] [facility] 2023-12-22 21:51:00 2023-12-22 23:13:00 Emergency X TREV ROWERADHA [facility] ERT [id number] [facility] 2023-12-22 21:51:00 2023-12-22 23:13:00 Emergency Sullyroseline Cailin [facility] 1.2.840.114 350.1.13.10 4.2.7.2.686 [id number] [facility] 2023-12-21 19:36:00 2023-12-21 21:52:00 Emergency X QUENTIN MACIEL [facility] ERT [id number] [facility] 2023-12-21 19:36:00 2023-12-21 21:52:00 Emergency Quentin Maciel [facility] 1.2.840.114 350.1.13.10 4.2.7.2.686 [id number] [facility] 2023-11-10 19:29:00 2023-11-10 20:14:00 Emergency X CHRISTY HOLLIDAY [facility] ERT [id number] [facility] 2023-11-10 19:29:00 2023-11-10 20:14:00 Emergency Christy Holliday [facility] 1..840.114 350.1.13.10 4.2.7.2.686 [id number] [facility] 2023-10-27 00:49:00 2023-10-27 01:41:00 Emergency X TERESSAJAC [facility] ERT [id number] [facility] 2023-10-27 00:49:00 2023-10-27 01:41:00 Emergency Jac Navarro [facility] 1..840.114 350.1.13.10 4.2.7.2.686 [id number] [facility] 2023-07-15 00:00:00 2023-07-15 00:00:00 Outpatient YAMIL, DARIEN BECERRA [id number] Maria Elena [facility] 2023-06-16 11:30:00 2023-06-16 11:30:00 Outpatient DARIEN LOBO [id number] Maria Elena [facility] 2023-05-18 00:00:00 2023-05-18 00:00:00 Outpatient MARIA ELENA CHAN [id number] Maria Elena [facility] 2022-10-14 10:07:00 2022-10-14 14:39:00 Emergency X QUENTIN MACIEL [facility] ERT [id number] [facility] 2022-10-14 10:07:00 2022-10-14 14:39:00 Emergency Quentin Maciel [facility] 1..840.114 350.1.13.10 4.2.7.2.686 [id number] [facility] 2022-03-12 05:15:00 2022-03-12 06:41:00 Emergency X CHRISTY HOLLIDAY [facility] ERT [id number] [facility] 2022-03-12 05:15:00 2022-03-12 06:41:00 Emergency Christy Holliday [facility] 1.2.840.114 350.1.13.10 4.2.7.2.686 [id number] [facility] 2022-02-20 04:17:00 2022-02-20 07:16:00 Emergency X CHRISTY HOLLIDAY [facility] ERT [id number] [facility] 2022-02-20 04:17:00 2022-02-20 07:16:00 Emergency Christy Holliday [facility] 1.2.840.114 350.1.13.10 4.2.7.2.686 [id number] [facility] 2021-02-03 11:10:00 2021-02-03 11:10:00 Outpatient R DENISE SUNG [facility] [id number] [facility] 2021-01-13 11:20:00 2021-01-13 11:20:00 Outpatient [facility] [id number] [facility] 2020-11-10 08:20:00 2020-11-10 08:20:00 Outpatient R KARLEY ADAMS [facility] [id number] [facility] Results Test Description Test Time Test Comments Results Result Co mments Source [facility] WITH [id number] 18:19:05* Test Item Value Reference Range Interpretation [...] 33.2 g/dL 31.2-35.0 RDW-SD (test code = 14973-0) 53.9 fL 38.5-51.6 H RDW-CV (test code = 788-0) 15.2 % 12.1-15.4 PLT (test code = 777-3) 271 150-328 No platelet clum p seen on the smear MPV (test code = 35138-6) 10.1 fL 9.8-13.0 IPF % (test code = 4498624860) 4.2 % 1.2-10.7 Platelet count measured by fluorescence method. NRBC/100 WBC (test code = 8140884830) 0.0 0.0-10.0 NRBC x10^3 (test code = 2789471539) See_Comment [Automated [employer] ge] The system which generated this result transmitted reference range: 10*3/?L. The reference range was not used to interpret this result as normal/abnormal. GRAN MAT (NEUT) % (test code = 770-8) 74.5 % IMM GRAN % (test code = 1246846941) 1.70 % LYMPH % (test code = 736-9) 12.8 % MONO % (test code = 5905-5) 10.4 % EOS % (test code = 713-8) 0.3 % BASO % (test code = 706-2) 0.3 % GRAN MAT x10^3(ANC) (test code = 0543985253) 10.27 10*3/uL 1.99-6.95 H IMM GRAN x10^3 (test code = 0655714767) 0.23 10*3/uL 0.00-0.06 H LYMPH x10^3 (test code = 731-0) 1.77 10*3/uL 1.09-3.23 MONO x10^3 (test code = 742-7) 1.43 10*3/uL 0.36-1.02 H EOS x10^3 (test code = 711-2) 0.04 10*3/uL 0.06-0.53 L BASO x10^3 (test code = 704-7) 0.04 10*3/uL 0.01-0.09 ELLIPTO/OVAL (test code = 49611-9) 2+ See_Comment A [Automated [employer]] The system which generated this result transmitted reference range: (none). The reference range was not used to interpret this result as normal/abnormal. POLYCHROMASIA (test code = 09507-7) 2+ See_Comment [Automated [employer]] The system which generated this result transmitted reference range: 2+. The reference range was not used to interpret this result as normal/abnormal. SPHEROCYTES (test code = 802-9) 1+ A TOXIC CHANGES (test code = 803-7) Present A PLT ESTIMATE (test code = 9317-9) Normal Normal Lab Interpretation (test code = 77533-7) [facility]normal [facility] [id number] 17:49:42* Test Item Value Reference Range Interpretation Comme nts TROPONIN I (test code = 7328041079) 0.004 ng/mL <=0.034 LOUISE (test code = [...] of biotin. Lab Interpretation (test code = 45521-4) Normal [facility] [id number]-[id number] 17:47:05* Test Item Value Reference Range Interpretation Comme nts NT-proBNP (test code = 00691-3) 125 pg/mL <=125 Lab Interpretation (test cod e = 29937-5) Normal [facility] Houston[facility]OL2024-[facility]-14 17:39:20 ALCOHOL<10mg/dL07/23/2024 12:39 [facility] Pitzxnul34-447 Toxic>100 Depression of DIE CUTTING MACHINE OPERATOR>400 Fatalities [facility]ortedUnLas [facility] CenterCOM. METABOLIC PANEL (87731)2024-07-23 17:38:03* Test Item Value Reference Range Interpretation Comme nts NA (test code = 5342173439) 134 mmol/L 135-145 L K (test code = 9798914554) 3.8 mmol/L 3.5-5.0 CL (test code = 4498328658) 98 mmol/L 98-108 CO2 TOTAL (test code = 4171297924) 22 mmol/L 23-31 L AGAP (test code = 0415814544) 14 2-16 BUN (test code = 4737422184) 14 mg/dL 7-23 GLUCOSE (test code = 9628789965) 110 mg/dL 70-110 CREATININE (test code = 2160-0) 0.54 mg/dL 0.60-1.25 L TOTAL BILI (test code = 2818337577) 1.1 mg/dL 0.1-1.1 CALCIUM (test code = 3179871298) 9.4 mg/dL 8.6-10.6 T PROTEIN (test code = 9644180276) 7.8 g/dL 6.3-8.2 ALBUMIN (test code = 5637941896) 4.9 g/dL 3.5-5.0 ALK PHOS (test code = 1484723961) 75 U/L 34-122 ALTv (test code = 1742-6) 21 U/L 5-50 AST(SGOT) (test code = 6555386901) 30 U/L 13-40 eGFR (test code = 17885-2) 117.0 mL/min/1.73m2 CKD-EPI eGFR (2020). Assuming creatinine has been stable day-to-day for at least three months, the eGFR indicates Category G1 (>= 90 mL/min/1.73 m2) Lab Interpretation (test code = 09226-9) Abnormal [facility] 17:38:03* Test Item Value Reference Range Interpretation Comme nts LIPASE (test code = 8491706082) 48 U/L 0-220 Lab Interpretation (test cod e = 12292-4) Normal [facility] HoustonCT THORAX WO [id number] 13:12:40 PROCEDURE: CT CHEST WITHOUT CONTRAST - [...] lesions are detected.The soft tissues appear normal. [facility] HoustonProcalcitonin2024-09-10 07:32:10* Test Item Value Reference Range Interpretation Comme [facility] Procalcitonin (test code = 3035879693) 0.02 ng/mL <=0.07 LOUISE (test code = [...] lung abscess/empyema. For further information please refer to:[email or web address] Lab Interpretation (test code = 12899-0) Normal [facility] HoustonLaakic Acid Whole Oziuv5724-50-54 16:01:14* Test Item Value Reference Range Interpretation Comme nts LACTIC ACID (test code = 4320423858) 1.87 mmol/L 0.50-2.20 Lab Interpretation (test cod e = 97494-4) Normal [facility] HoustonLaakic Acid Whole [id number] 13:12:25* Test Item Value Reference Range Interpretation Comme nts LACTIC ACID (test code = 3934509682) 6.23 mmol/L 0.50-2.20 H Lab Interpretation (test cod e = 47876-2) Abnormal [facility]. METABOLIC PANEL (17279)2024-07-18 12:56:44* Test Item Value Reference Range Interpretation Comme nts NA (test code = 6327744643) 140 mmol/L 135-145 K (test code = 7548311447) 4.1 mmol/L 3.5-5.0 CL (test code = 2754755983) 102 mmol/L 98-108 CO2 TOTAL (test code = 7270333926) 20 mmol/L 23-31 L AGAP (test code = 8212370961) 18 2-16 H BUN (test code = 6677117814) 10 mg/dL 7-23 GLUCOSE (test code = 8634280072) 123 mg/dL 70-110 H CREATININE (test code = 2160-0) 0.59 mg/dL 0.60-1.25 L TOTAL BILI (test code = 9565388290) 0.6 mg/dL 0.1-1.1 CALCIUM (test code = 5824333733) 9.1 mg/dL 8.6-10.6 T PROTEIN (test code = 7169641451) 7.8 g/dL 6.3-8.2 ALBUMIN (test code = 8462056973) 4.9 g/dL 3.5-5.0 ALK PHOS (test code = 3096313305) 75 U/L 34-122 ALTv (test code = 1742-6) 23 U/L 5-50 AST(SGOT) (test code = 1208645286) 34 U/L 13-40 eGFR (test code = 38940-4) 113.9 mL/min/1.73m2 CKD-EPI eGFR (2020). Assuming creatinine has been stable day-to-day for at least three months, the eGFR indicates Category G1 (>= 90 mL/min/1.73 m2) Lab Interpretation (test code = 71970-3) Abnormal [facility] HoustonCritical [id number] 12:12:28Shay Stinson MD ? ? 07/18/2024 ?8:56 [...] ? ?Care discussed with: admitting provider ? [facility] HoustonTRFORMERLY [facility]ENTERNOHEMY [id number] 12:08:40* Test Item Value Reference Range Interpretation Comme nts TROPONIN I (test code = 2781580763) 0.015 ng/mL <=0.034 LOUISE (test code = [...] of biotin. Lab Interpretation (test code = 78085-8) Normal [facility] HoustonN-TERMINAL KHD-[id number] 12:01:41* Test Item Value Reference Range Interpretation Comme nts NT-proBNP (test code = 97297-7) 111 pg/mL <=125 Lab Interpretation (test cod e = 52792-2) Normal [facility] HoustonXR CHEST 1 [id number] 11:57:22ORDERING PHYSICIAN: ZACH MCGUIRE CLINICAL HISTORY: Shortness of breath TECHNIQUE: Frontal view of chest COMPARISON: 07/17/2024 FINDINGS: The cardiac silhouette is mildly enlarged, stable. ?Stable right lower lobepatchy infiltrate. There are no effusions. The left lung is clear. Osseous structures are normal.[facility] HoustonETHANOL2024-09-09 11:53:01* Test Item Value Reference Range Interpretation Comme nts ALCOHOL (test code = 1834275619) 91 mg/dL LOUISE (test code = LOUISE) <10 Xsbyzhzo09-495 Toxic>100 Depression of DIE CUTTING MACHINE OPERATOR>[address] [facility] WITH [id number] 11:36:10* Test Item Value Reference Range Interpretation [...] 32.4 g/dL 31.2-35.0 RDW-SD (test code = 10406-0) 58.6 fL 38.5-51.6 H RDW-CV (test code = 788-0) 16.3 % 12.1-15.4 H PLT (test code = 777-3) 229 150-328 MPV (test code = 85259-9) 9.0 fL 9.8-13.0 L NRBC/100 WBC (test code = 1821605275) 0.0 0.0-10.0 NRBC x10^3 (test code = 0415235440) See_Comment [Automated message] The system which generated this result transmitted reference range: 10*3/?L. The reference range was not used to interpret this result as normal/abnormal. GRAN MAT (NEUT) % (test code = 770-8) 76.7 % IMM GRAN % (test code = 2790745056) 0.80 % LYMPH % (test code = 736-9) 15.8 % MONO % (test code = 5905-5) 6.6 % EOS % (test code = 713-8) 0.0 % BASO % (test code = 706-2) 0.1 % GRAN MAT x10^3(ANC) (test code = 8928828729) 11.29 10*3/uL 1.99-6.95 H IMM GRAN x10^3 (test code = 6539337561) 0.12 10*3/uL 0.00-0.06 H LYMPH x10^3 (test code = 731-0) 2.32 10*3/uL 1.09-3.23 MONO x10^3 (test code = 742-7) 0.97 10*3/uL 0.36-1.02 EOS x10^3 (test code = 711-2) 0.06-0.53 L BASO x10^3 (test code = 704-7) 0.01-0.09 Lab Interpretation (test code = 75628-1) Abnormal [facility] 1 [id number] 02:23:27EXAM: ?XR CHEST 1 VW HISTORY: ?dyspnea Ordering physician: BLU MCGUIRE COMPARISON: Chest x-ray from February 08, 2024. TECHNIQUE: Frontal chest x-ray. ? FINDINGS: Heart size is stable. Pulmonary vessels are normal. Mild infiltrate in theright lower lung is present. No pneumothorax or pleural effusion isdetected. Mediastinal contour is normal. No free air is discerned. There isno displaced rib fracture. ?[facility] HoustonLIPID [id number] 00:00:00 * Test Item Value Reference Range Interpretation Comme nts CHOLESTEROL (test code = 2210) 234 MG/DL TRIGLYCERIDES (test code = 2232) 176 MG/DL HDL CHOLESTEROL (test code = 2220) 80 MG/DL CALC LDL CHOL (test code = 2237) 125 MG/DL RISK RATIO LDL/HDL (test cod e = 2238) 1.56 RATIO Tunde HaroCBC W/AUTO [id number] 00:00:00* Test Item Value Reference Range Interpretation [...] ABS NUCLEATED RBCS (test cod e = 81263) 0.00 K/UL Tunde Quiñonez TahirCOMPREHENSIVE METABOLIC [id number] 00:00:00* Test Item Value Reference Range Interpretation Comme nts GLUCOSE (test code = 2217) 145 MG/DL BUN (test code = 2208) 8 MG/DL CREATININE (test code = 2214) 0.71 MG/DL eGFR (2020 CKD-EPI) (test code = 71925) 108 ML/MIN/1.73 CALC BUN/CREAT (test code = [...] code = 2219) 11 U/L Tunde HaroHEMOGLOBIN [id number] 00:00:00* Test Item Value Reference Range Interpretation Comme nts HEMOGLOBIN A1c (test code = 92732) 5.5 % Tunde HaroBmxeumHjvlbhj4871-85-98 21:47:04* Test Item Value Reference Range Interpretation Comme nts ALCOHOL (test code = 8156273374) 329 mg/dL LOUISE (test code = LOUISE) <10 Yayapxwl67-965 Toxic>100 Depression of DIE CUTTING MACHINE OPERATOR>400 Fatalities Reported [facility] HoustonAC Panel 20 + Lactic [id number] 20:52:47* Test Item Value Reference Range Interpretation Comme nts PH (test code = 2) 7.39 7.35-7.45 PCO2 (test code = 1727799709) 42 35-45 PO2 (test code = 2219547324) 76 80-100 L HCO3 (test code = 3954811853) 25 22-26 BE (test code = 0862106762) -0.1 -3.0-3.0 THB (test code = 5579525571) 14.3 g/dL 13.5-18.0 %O2HB (test code = 3764558958) 85.8 % 94.0-99.0 L %COHB ART (test code = 7855429700) 9.0 % 0.0-1.5 H %METHB ART (test code = 9986883489) 0.3 % 0.4-1.5 L VOL%O2 ART (test code = 7487462013) 17.3 % 15.0-23.0 NA (test code = 2482094945) 140 mmol/L 135-145 K+ (test code = 3618737378) 4.1 mmol/L 3.5-5.0 AC CA IONZ (test code = 8780216701) 4.50 mg/dL 4.50-5.30 GLUCOSE (test code = 4712243134) 105 mg/dL 70-110 LACTIC ACID (test code = 6551981999) 2.60 mmol/L 0.50-2.20 H Lab Interpretation (test cod e = 96375-7) Abnormal [facility] HoustonTroponin [id number] 20:34:14* Test Item Value Reference Range Interpretation Comme nts TROPONIN I (test code = 0106207045) 0.008 ng/mL <=0.034 LOUISE (test code = [...] of biotin. Lab Interpretation (test code = 99864-0) Normal [facility] HoustonN-Terminal Ovc-Vbg4254-81-01 20:31:35* Test Item Value Reference Range Interpretation Comme nts NT-proBNP (test code = 01572-1) 188 pg/mL <=125 LOUISE (test code = LOUISE) Result Indeterminate-Consid er causes of NT-proBNP elevation other than Heart failure such as acute coronary syndrome, pulmonary embolism, pulmonary hypertension, sepsis, stroke, and renal dysfunction. Lab Interpretation (test code = 30827-7) Abnormal [facility] HoustonComp. Metabolic Panel (07758)2024-02-08 20:21:10* Test Item Value Reference Range Interpretation Comme nts NA (test code = 7622691767) 135 mmol/L 135-145 K (test code = 4259578855) 4.5 mmol/L 3.5-5.0 CL (test code = 2052065588) 100 mmol/L 98-108 CO2 TOTAL (test code = 7787529959) 22 mmol/L 23-31 L AGAP (test code = 4147450526) 13 2-16 BUN (test code = 0373897122) 8 mg/dL 7-23 GLUCOSE (test code = 1169367600) 97 mg/dL 70-110 CREATININE (test code = 2160-0) 0.65 mg/dL 0.60-1.25 TOTAL BILI (test code = 7940665514) 0.4 mg/dL 0.1-1.1 CALCIUM (test code = 4296357257) 9.4 mg/dL 8.6-10.6 T PROTEIN (test code = 9375033797) 8.2 g/dL 6.3-8.2 ALBUMIN (test code = 7448458812) 4.7 g/dL 3.5-5.0 ALK PHOS (test code = 5376129908) 76 U/L 34-122 ALTv (test code = 1742-6) 33 U/L 5-50 AST(SGOT) (test code = 9610715575) 54 U/L 13-40 H eGFR (test code = 10491-1) 111.3 mL/min/1.73m2 CKD-EPI eGFR (2020). Assuming creatinine has been stable day-to-day for at least three months, the eGFR indicates Category G1 (>= 90 mL/min/1.73 m2) Lab Interpretation (test code = 81597-9) [facility]:21:10* Test Item Value Reference Range Interpretation Comme nts MAGNESIUM (test code = 9510136987) 2.1 mg/dL 1.7-2.4 Lab Interpretation (test cod e = 21340-7) Normal [facility] 1 [id number] 20:07:21EXAM: XR CHEST 1 VW COMPARISON: 01/14/2024 HISTORY: sob FINDINGS: Lungs: Slightly hyperexpanded lungswith subtle progression of interstitialprominence. Trace pleural effusions could be present. Heart/Mediastinum: Stable cardiomegaly. Bones and soft tissues: No osseous abnormality is visualized.[facility] Cbc with [id number] 20:04:26* Test Item Value Reference Range Interpretation [...] 33.8 g/dL 31.2-35.0 RDW-SD (test code = 88859-3) 50.5 fL 38.5-51.6 RDW-CV (test code = 788-0) 14.3 % 12.1-15.4 PLT (test code = 777-3) 206 150-328 MPV (test code = 72787-3) 9.1 fL 9.8-13.0 L NRBC/100 WBC (test code = 9133187986) 0.0 0.0-10.0 NRBC x10^3 (test code = 1724276271) See_Comment [Automated messa ge] The system which generated this result transmitted reference range: 10*3/?L. The reference range was not used to interpret this result as normal/abnormal. GRAN MAT (NEUT) % (test code = 770-8) 81.0 % IMM GRAN % (test code = 1052969793) 1.20 % LYMPH % (test code = 736-9) 10.9 % MONO % (test code = 5905-5) 6.8 % EOS % (test code = 713-8) 0.0 % BASO % (test code = 706-2) 0.1 % GRAN MAT x10^3(ANC) (test code = 9784282683) 9.31 10*3/uL 1.99-6.95 H IMM GRAN x10^3 (test code = 6246997626) 0.14 10*3/uL 0.00-0.06 H LYMPH x10^3 (test code = 731-0) 1.25 10*3/uL 1.09-3.23 MONO x10^3 (test code = 742-7) 0.78 10*3/uL 0.36-1.02 EOS x10^3 (test code = 711-2) 0.06-0.53 L BASO x10^3 (test code = 704-7) 0.01-0.09 Lab Interpretation (test code = 00750-0) [facility] (16302)2023-12-23 04:53:26* Test Item Value Reference Range Interpretation Comme nts NA (test code = 5430986589) 135 mmol/L 135-145 K (test code = 2957357143) 3.2 mmol/L 3.5-5.0 L CL (test code = 5091050131) 104 mmol/L 98-108 CO2 TOTAL (test code = 7735154968) 23 mmol/L 23-31 AGAP (test code = 3246700713) 8 2-16 BUN (test code = 2360439675) 11 mg/dL 7-23 GLUCOSE (test code = 5825312939) 82 mg/dL 70-110 CREATININE (test code = 2160-0) 0.64 mg/dL 0.60-1.25 TOTAL BILI (test code = 4673027330) 0.5 mg/dL 0.1-1.1 CALCIUM (test code = 7669109410) 8.8 mg/dL 8.6-10.6 T PROTEIN (test code = 8808345877) 6.7 g/dL 6.3-8.2 ALBUMIN (test code = 1243968060) 4.1 g/dL 3.5-5.0 ALK PHOS (test code = 1000012283) 46 U/L 34-122 ALTv (test code = 1742-6) 21 U/L 5-50 AST(SGOT) (test code = 2196363792) 43 U/L 13-40 H eGFR (test code = 53522-9) 111.8 mL/min/1.73m2 CKD-EPI eGFR (2020). Assuming creatinine has been stable day-to-day for at least three months, the eGFR indicates Category G1 (>= 90 mL/min/1.73 m2) Lab Interpretation (test code = 73402-7) [facility]53[facility]26* Test Item Value Reference Range Interpretation Comme nts LIPASE (test code = 9735853192) 105 U/L 0-220 Lab Interpretation (test cod e = 89126-4) Normal [facility] WITH [id number] 04:34:24* Test Item Value Reference Range Interpretation [...] 33.0 g/dL 31.2-35.0 RDW-SD (test code = 15449-2) 50.9 fL 38.5-51.6 RDW-CV (test code = 788-0) 13.7 % 12.1-15.4 PLT (test code = 777-3) 232 150-328 MPV (test code = 96762-0) 8.7 fL 9.8-13.0 L NRBC/100 WBC (test code = 8898510109) 0.0 0.0-10.0 NRBC x10^3 (test code = 0038382796) See_Comment [Automated messa ge] The system which generated this result transmitted reference range: 10*3/?L. The reference range was not used to interpret this result as normal/abnormal. GRAN MAT (NEUT) % (test code = 770-8) 58.8 % IMM GRAN % (test code = 1355772472) 0.90 % LYMPH % (test code = 736-9) 27.8 % MONO % (test code = 5905-5) 10.5 % EOS % (test code = 713-8) 1.3 % BASO % (test code = 706-2) 0.7 % GRAN MAT x10^3(ANC) (test code = 7675335554) 5.68 10*3/uL 1.99-6.95 IMM GRAN x10^3 (test code = 5131056754) 0.09 10*3/uL 0.00-0.06 H LYMPH x10^3 (test code = 731-0) 2.69 10*3/uL 1.09-3.23 MONO x10^3 (test code = 742-7) 1.02 10*3/uL 0.36-1.02 EOS x10^3 (test code = 711-2) 0.13 10*3/uL 0.06-0.53 BASO x10^3 (test code = 704-7) 0.07 10*3/uL 0.01-0.09 Lab Interpretation (test code = 70007-2) [facility]normal [facility] P[facility] W [id number] 03:32:43Exam: CT Abdomen and Pelvis With Contrast, [...] acute osseous abnormality.Soft tissues: Small fat-containing inguinal hernias.[facility] HoustonEthanol2024-[facility]-13 02:32:24* Test Item Value Reference Range Interpretation Comme nts ALCOHOL (test code = 9622300556) 117 mg/dL LOUISE (test code = LOUISE) <10 Fvptyybc62-149 Toxic>100 Depression of DIE CUTTING MACHINE OPERATOR>400 Fatalities Reported [facility]. Metabolic Panel ([id number])2023-12-22 02:31:43* Test Item Value Reference Range Interpretation Comme nts NA (test code = 3220911785) 133 mmol/L 135-145 L K (test code = 2954998354) 3.3 mmol/L 3.5-5.0 L CL (test code = 1783093080) 102 mmol/L 98-108 CO2 TOTAL (test code = 6544638069) 25 mmol/L 23-31 AGAP (test code = 1229923117) 6 2-16 BUN (test code = 8262998055) 11 mg/dL 7-23 GLUCOSE (test code = 1111286171) 75 mg/dL 70-110 CREATININE (test code = 2175735377) 0.51 mg/dL 0.60-1.25 L TOTAL BILI (test code = 4657850584) 0.5 mg/dL 0.1-1.1 CALCIUM (test code = 3755500716) 8.9 mg/dL 8.6-10.6 T PROTEIN (test code = 0497730227) 7.2 g/dL 6.3-8.2 ALBUMIN (test code = 1814188850) 4.5 g/dL 3.5-5.0 ALK PHOS (test code = 1721077168) 46 U/L 34-122 ALTv (test code = 1742-6) 15 U/L 5-50 AST(SGOT) (test code = 5810525258) 24 U/L 13-40 eGFR (test code = 60606-9) 119.7 mL/min/1.73m2 CKD-EPI eGFR (2020). Assuming creatinine has been stable day-to-day for at least three months, the eGFR indicates Category G1 (>= 90 mL/min/1.73 m2) Lab Interpretation (test code = 92795-5) [facility]normal [facility]2024-[facility]-13 02:31:43* Test Item Value Reference Range Interpretation Comme nts LIPASE (test code = 5171899166) 121 U/L 0-220 Lab Interpretation (test cod e = 17823-0) Normal [facility] HoustonProthrombin Time / [id number] 02:21:02* Test Item Value Reference Range Interpretation Comme nts PROTIME PATIENT (test code = 5964-2) 10.5 10.1-12.6 INR (test code = 6301-6) 0.9 Normal INR <1.1; Warfarin Therapeutic range 2.0 to 3.0 or 2.5 to 3.5, depending upon the indications. Lab Interpretation (test code = 16375-4) Normal [facility] HoustonCbc with [id number] 02:14:04* Test Item Value Reference Range Interpretation [...] 34.0 g/dL 31.2-35.0 RDW-SD (test code = 10639-1) 49.1 fL 38.5-51.6 RDW-CV (test code = 788-0) 13.5 % 12.1-15.4 PLT (test code = 777-3) 260 150-328 MPV (test code = 56607-7) 8.7 fL 9.8-13.0 L NRBC/100 WBC (test code = 4193224335) 0.0 0.0-10.0 NRBC x10^3 (test code = 0028759877) See_Comment [Automated messa ge] The system which generated this result transmitted reference range: 10*3/?L. The reference range was not used to interpret this result as normal/abnormal. GRAN MAT (NEUT) % (test code = 770-8) 64.3 % IMM GRAN % (test code = 4132924543) 0.90 % LYMPH % (test code = 736-9) 24.2 % MONO % (test code = 5905-5) 9.1 % EOS % (test code = 713-8) 0.7 % BASO % (test code = 706-2) 0.8 % GRAN MAT x10^3(ANC) (test code = 6902738399) 8.73 10*3/uL 1.99-6.95 H IMM GRAN x10^3 (test code = 9746181769) 0.12 10*3/uL 0.00-0.06 H LYMPH x10^3 (test code = 731-0) 3.28 10*3/uL 1.09-3.23 H MONO x10^3 (test code = 742-7) 1.23 10*3/uL 0.36-1.02 H EOS x10^3 (test code = 711-2) 0.10 10*3/uL 0.06-0.53 BASO x10^3 (test code = 704-7) 0.11 10*3/uL 0.01-0.09 H Lab Interpretation (test code = 70537-5) Abnormal [facility] [id number] 10:16:22* Test Item Value Reference Range Interpretation Comments TROPONIN I (test code = 2114409362) 0.007 ng/mL See_Comment [Automated message] The system [...] of biotin. Lab Interpretation (test code = 01864-2) Normal [facility] HoustonN-TERMINAL [id number] 10:13:01* Test Item Value Reference Range Interpretation Comme nts NT-proBNP (test code = 9521076878) 52 pg/mL See_Comment [Automated message] The system which generated this result transmitted reference range: <=125. The reference range was not used to interpret this result as normal/abnormal. LOUISE (test code = LOUISE) Biotin has been reported to cause a negative bias, interpret results relative to patient's use of biotin. Lab Interpretation (test code = 62642-1) Normal [facility] HoustonCOMP. METABOLIC PANEL ([id number])2022-02-20 10:04:02* Test Item Value Reference Range Interpretation Comme nts NA (test code = 1329186328) 137 mmol/L 135-145 K (test code = 5699010760) 3.6 mmol/L 3.5-5.0 CL (test code = 1243522169) 99 mmol/L 98-108 CO2 TOTAL (test code = 4967963333) 25 mmol/L 23-31 AGAP (test code = 9573135490) 2-16 BUN (test code = 7777483518) 6 mg/dL 7-23 L GLUCOSE (test code = 4990448223) 88 mg/dL 70-110 CREATININE (test code = 1396220790) 0.55 mg/dL 0.60-1.25 L TOTAL BILI (test code = 3685398308) 0.8 mg/dL 0.1-1.1 CALCIUM (test code = 7891708873) 8.9 mg/dL 8.6-10.6 T PROTEIN (test code = 5948766374) 7.5 g/dL 6.3-8.2 ALBUMIN (test code = 2834177810) 4.8 g/dL 3.5-5.0 ALK PHOS (test code = 3297050780) 113 U/L 34-122 ALTv (test code = 1742-6) 84 U/L 5-50 H AST(SGOT) (test code = 6664446289) 107 U/L 13-40 H eGFR (test code = 8445806163) mL/min/1.73m2 LOUISE (test code = LOUISE) Association [...] imaging tests). Lab Interpretation (test code = 39383-5) [facility]normal [facility], [id number] 10:03:21* Test Item Value Reference Range Interpretation Comme nts LIPASE (test code = 1039562089) 193 U/L 0-220 Lab Interpretation (test cod e = 03299-2) Normal [facility] WITH [id number] 09:39:17* Test Item Value Reference Range Interpretation [...] g/dL 31.2-35.0 H RDW-SD (test code = 03235-6) 44.4 fL 38.5-51.6 RDW-CV (test code = 788-0) 11.9 % 12.1-15.4 L PLT (test code = 777-3) See_Comment [Automated messa ge] The system which generated this result transmitted reference range: 150 - 328 10*3/?L. The reference range was not used to interpret this result as normal/abnormal. MPV (test code = 26618-0) 9.2 fL 9.8-13.0 L NRBC/100 WBC (test code = 1310460308) See_Comment [Automated [employer] ssage] The system which generated this result transmitted reference range: 0.0 - 10.0 /100 WBCs. The reference range was not used to interpret this result as normal/abnormal. NRBC x10^3 (test code = 2158535395) <0.01 See_Comment [Automated messa ge] The system which generated this result transmitted reference range: 10*3/?L. The reference range was not used to interpret this result as normal/abnormal. GRAN MAT (NEUT) % (test code = 770-8) 69.9 % IMM GRAN % (test code = 0567373162) 1.50 % LYMPH % (test code = 736-9) 18.9 % MONO % (test code = 5905-5) 7.0 % EOS % (test code = 713-8) 1.9 % BASO % (test code = 706-2) 0.8 % GRAN MAT x10^3(ANC) (test code = 5202757809) 7.15 10*3/uL 1.99-6.95 H IMM GRAN x10^3 (test code = 3110546133) 0.15 10*3/uL 0.00-0.06 H LYMPH x10^3 (test code = 731-0) 1.93 10*3/uL 1.09-3.23 MONO x10^3 (test code = 742-7) 0.72 10*3/uL 0.36-1.02 EOS x10^3 (test code = 711-2) 0.19 10*3/uL 0.06-0.53 BASO x10^3 (test code = 704-7) 0.08 10*3/uL 0.01-0.09 Lab Interpretation (test code = 40980-6) Abnormal [facility] History and Physical Notes Date/Time Note Provider [...] full understanding, Time discussed 3 minutes [place] ASSOCIATE PROFESSOR OF COMMUNICATION was verified Disposition: Admit ICU [facility]"
[2024-10-23] MEDS ORDERED: THIAMINE 200 MG/2 ML INJ ONE (23:07)
[2024-10-23] MEDS ORDERED: METHYLPREDNISOLONE 125 MG INJ ONE (23:07)
[2024-10-23] MEDS ORDERED: IPRATROPIUM BROM 0.5MG/2.5ML ONE (23:07)
[2024-10-23] MEDS ORDERED: LEVALBUTEROL 1.25 MG/3 ML NEB ONE (23:07)
[2024-10-23] MEDS ORDERED: FAMOTIDINE 20 MG/2 ML VIAL IV ONE (23:08)
[2024-10-23] MEDS ORDERED: BACI/NEOMYCIN/POLY OINT 15GM TOP ONE (23:08)
[2024-10-23] MEDS ORDERED: MULTIVITAMINS 10 ML VIAL (INJ) IV ONE (23:08)
[2024-10-23] MEDS ORDERED: levoFLOXacin 250 MG TAB ONE (23:08)
[2024-10-23] MEDS ORDERED: MORPHINE 4 MG/ML SYR ONE (23:08)
[2024-10-23] MEDS ORDERED: NA CHLORIDE 0.9% 1,000 ML ONE (23:09)
[2024-10-23] MEDS ORDERED: FOLIC ACID 5 MG/ML VIAL ONE (23:09)
[2024-10-23] MEDS ORDERED: NA CHLORIDE 0.9% 500 ML ONE (23:10)
[2024-10-23] MEDS ORDERED: Magnesium Sulfate 2gm IVPB 2 G/50 ML BAG IV ONE (23:10)
[2024-10-23 23:37] LABS: Blood Gas Oxyhemoglobin 80.1 % (94-97); Blood O2 Saturation 88.4 % (92-98.5)
[2024-10-23 23:38] LABS: Arterial Blood Carboxyhemoglob 7.4 % (0-1.5); Blood Gas THB 12.3 g/dl (12-18)
[2024-10-23 23:55] LABS: Absolute Basophils 0.1 K/uL (0-0.5); Absolute Eosinophils 0.3 K/uL (0-0.5); Absolute Monocytes 1.1 K/uL (0.1-1.3); Absolute Neutrophil 4.6 K/uL (1.8-8.0); Basophils % 0.6 % (0-1.3); Eosinophils % 2.9 % (0-4.4); Hematocrit 37.5 % (39.6-49.0); Lymphocytes % 39.7 % (15.3-44.8); MCH 32.1 pg (27.0-35.0); MCHC 32.2 g/dL (32.0-36.0); MCV 99.9 fL (80-100); MPV 7.1 fL (7.6-11.3); Neutrophils % 45.8 % (41.7-73.7); PT Prothrombin Time 9.8 SECONDS (9.4-12.5); Platelets 274 thou/uL (152-406); Protime INR 0.87; RBC Red Blood Cell Count 3.75 M/uL (4.33-5.43); Red Cell Distribution Width 17.5 % (12.1-15.2)
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
[2024-10-24 00:14] LABS: ALT/SGPT 20 U/L (16-61); AST/SGOT 17 U/L (15-37); Albumin 3.6 g/dL (3.4-5.0); Albumin/Globulin Ratio 1.2 (1.1-1.8); Alkaline Phosphatase 52 U/L (45-117); Anion Gap 10.8 mEq/L (5.0-15.0); BUN Blood Urea Nitrogen 8 mg/dL (7-18); Bicarbonate 22 mEq/L (21-32); Bilirubin Total 0.2 mg/dL (0.2-1.0); Globulin 3.1 g/dL (2.3-3.5); Glomerular Filtration Rate 111 ml/min (=/>90); Glucose Level 90 mg/dL (74-106); Magnesium 1.9 mg/dL (1.6-2.4); NT PRO-BNP 84 pg/mL (<125); Potassium 3.8 mEq/L (3.5-5.1); Protein, Total 6.7 g/dL (6.4-8.2); Sodium Level 138 mEq/L (136-145); Troponin High Sensitivity 6.8 pg/mL (<58.9)
[2024-10-24 00:16] LABS: Bilirubin Direct < 0.2 mg/dL (0-0.2)
[2024-10-24] MEDS ORDERED: ONDANSETRON 4 MG/2 ML VIAL ONE (00:32)
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
[2024-10-24] MEDS ORDERED: ONDANSETRON 4 MG/2 ML VIAL IV PRN (00:40)
[2024-10-24] MEDS ORDERED: ACETAMINOPHEN 500 MG TAB PO PRN (00:40)
[2024-10-24] MEDS ORDERED: IPRATROPIUM BROM 0.5MG/2.5ML NEB PRN (00:40)
[2024-10-24] MEDS ORDERED: ALBUTEROL 2.5 MG/3 ML NEB SOL NEB PRN (00:40)
[2024-10-24] MEDS ORDERED: HYDRALAZINE HCL 20 MG/ML VIAL IV PRN (00:44)
[2024-10-24] MEDS ORDERED: LORazepam 2 MG/ML VIAL IV PRN (00:46)
[2024-10-24] MEDS: METHYLPREDNISOLONE 40 MG INJ IV SCH (01:00)
[2024-10-24] MEDS ORDERED: LEVALBUTEROL 1.25 MG/3 ML NEB ONE ×2 (01:05→01:07)
[2024-10-24] MEDS ORDERED: predniSONE 20 MG TAB ONE (01:08)
[2024-10-24] MEDS: IPRATROPIUM BROM 0.5MG/2.5ML NEB SCH (02:00)
[2024-10-24] MEDS: MORPHINE 2 MG/ML SYR IV PRN (02:12)
[2024-10-24 02:19] VITALS: BMI 31.1
[2024-10-24] MEDS ORDERED: ALBUTEROL 2.5 MG/3 ML NEB SOL NEB SCH (03:00)
[2024-10-24] MEDS: NA CHLORIDE 0.9% 1,000 ML IV SCH (05:43)
--- NOTE | 2024-10-24 07:06 | RAD REPORT ---
EXAM: XR Left Hand Complete, 3 or More Views CLINICAL HISTORY: Pain. TECHNIQUE: Frontal, lateral and oblique views of the left hand. COMPARISON: No relevant prior studies available. FINDINGS: Bones/joints: Prior second digit amputation at the proximal metacarpal level. No acute fracture. No dislocation. Soft tissues: Unremarkable. No radiopaque foreign body. IMPRESSION: No acute injury. Electronically signed by: Catrina Hobbs MD 10/24/2024 12:00 AM [facility] Due to temporary technical issues with the PACS/[employer] reporting system, reports are being skyler d by the in-house radiologist without review as a courtesy to ensure prompt reporting the interpreting radiologist is fully responsible for the content of the report. Transcribed Date/Time: 10/24/2024 7:06 AM
--- NOTE | 2024-10-24 07:06 | RAD REPORT ---
EXAM: XR Chest, 1 View CLINICAL HISTORY: Cough, COPD. TECHNIQUE: Frontal view of the chest. COMPARISON: XR Chest 09/26/2024. FINDINGS: Lungs: Coarsened interstitial markings. Minimal patchy left basilar opacification. Pleural space: Unremarkable. No pneumothorax. Heart: Unremarkable. No cardiomegaly. Mediastinum: Unremarkable. Normal mediastinal contour. Bones/joints: Unremarkable. No acute fracture. IMPRESSION: Minimal patchy left basilar opacification (atelectasis and/or infiltrate). Electronically signed by: Catrina Hobbs MD 10/23/2024 11:54 PM [facility] Due to temporary technical issues with the PACS/[employer] reporting system, reports are being skyler d by the in-house radiologist without review as a courtesy to ensure prompt reporting the interpreting radiologist is fully responsible for the content of the report. Transcribed Date/Time: 10/24/2024 7:06 AM
[2024-10-24 07:19] VITALS: O2SAT 93
[2024-10-24] MEDS ORDERED: FLU (Fluarix Triv) TS24-25(6MOS UP)/PF 45 MCG/0.5 ML Syringe IM ONE (07:30)
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
[2024-10-24 08:41] VITALS: BP 137/71; TEMP 98.4
[2024-10-24] MEDS ORDERED: GUAIFENESIN 600 MG SA TAB PO SCH (09:00)
[2024-10-24] MEDS ORDERED: ASPIRIN EC 81 MG TAB PO SCH (09:00)
[2024-10-24] MEDS ORDERED: NICOTINE 21 MG/PAT TD SCH (09:00)
[2024-10-24] MEDS ORDERED: CEFTRIAXONE 1,000 MG in NA CHLORIDE 0.9% 50 ML IVPB SCH (09:00)
[2024-10-24] MEDS ORDERED: ENOXAPARIN 40 MG/0.4 ML SQ SCH (09:00)
--- NOTE | 2024-10-25 12:02 | EKG ---
Test Date: 2024-10-23 Test Time: 23:35:54 Packaging Mechanic: NAY MEASUREMENT RESULTS: Intervals: Rate: 82 NM: 152 QRSD: 110 QT: 404 QTc: 472 [place]: P: 72 NM: 152 QRS: 88 T: 83 INTERPRETIVE STATEMENTS: Normal sinus rhythm Normal ECG Compared to ECG 09/26/2024 20:28:30 Sinus tachycardia no longer present ST (T wave) deviation no longer present Electronically Signed On 10-25-24 12:00:39 [employer]OPER [employer] by Roberto Woodson
== END 2024-10-24 08:45 | disposition home or self-care (01) ==
LOC: ER 22:25 → INTOOBSV 10-24 00:40 → ERHOLD 10-24 00:40 → 3RD-ICU 10-24 01:17
PROVIDERS: ADMIT Internal Medicine; ATTEND Internal Medicine
DX: J44.1 Chronic obstructive pulmonary disease with (acute) exacerbation (principal); J96.11 Chronic respiratory failure with hypoxia; I10 Essential (primary) hypertension; F17.210 Nicotine dependence, cigarettes, uncomplicated; F10.129 Alcohol abuse with intoxication, unspecified; X01.1XXA Exposure to smoke in uncontrolled fire, not in building or structure, initial encounter; Y93.H9 Activity, other involving exterior property and land maintenance, building and construction; Y26.XXXA Exposure to smoke, fire and flames, undetermined intent, initial encounter; Y92.79 Other farm location as the place of occurrence of the external cause; Z99.81 Dependence on supplemental oxygen; T20.10XA Burn of first degree of head, face, and neck, unspecified site, initial encounter; T22.112A Burn of first degree of left forearm, initial encounter; X01 Exposure to uncontrolled fire, not in building or structure; Y93.89 Activity, other specified
CPT/HCPCS: 85025; 80048; 36415; 83735; 85610; 80076; 84484; 83880; 71045; 73130; 82805; 36600; J3411; J7512; J3475; J7614 ×3; J7613; J7644; J2270 ×2; J2919 ×2; J2405; J7040; J7030 ×2; 93005; G0378

== ENCOUNTER 2024-10-25 01:16 | Inpatient (IN) | payer OTHER ==
--- OUTSIDE RECORDS SUMMARY | 2024-10-25 01:23 | XMS REPORT | Continuity of Care Document ---
Author Name Unknown Address [address] [facility] [address] [place] [address] [facility] Address [address] [facility] [address] [place] [address] Care Team Providers Care Educational Consultant Name Role Phone Juan Daniel [facility] Primary Care Physician [phone] YARY CAMP Attending Clinician Unavailable YARY CAMP Attending Clinician Unavailable Yary Camp NP Attending Clinician [phone] JULIEN MARKS Attending Clinician Unavailable Blu Mcguire MD Attending Clinician [phone] Shay Stinson MD Attending Clinician [phone] Julien Marks DO Attending Clinician [phone] BLU MCGUIRE Attending Clinician Unavailable BLU MCGIURE Attending Clinician Unavailable WENDY BROWNLEE Attending Clinician UnaMYRNA Bernard Attending Clinician Unavailable DARIEN LOBO Attending Clinician Unavailable MINNA ORTA Attending Clinician Unavailab SHARATH Isbell Attending Clinician Unavailable TUNDE QUINTANILLA Attending Clinician Unavailable KEISHA DAVENPORT Attending Clinician Unauriah Davenport MD, Keisha Jackson Attending Clinician + Christina Victoria Attending Clinician [phone] JAC NAVARRO Attending Clinician Unavailable Jac Navarro MD Attending Clinician [phone] CAILIN ROWE Attending Clinician Unavailab QUENTIN Boothe Attending Clinician Unavailable Quentin Maciel DO Attending Clinician [phone] CHRISTY HOLLIDAY Attending Clinician Unavailable Christy Holliday MD Attending Clinician [phone] [facility]IA [facility] Attending Clinicia n Unavailable DENISE SUNG Attending Clinician Unavailable KARLEY ADAMS Attending Clinician Unavailable JULIEN MARKS Admitting Clinician Unavailable Julien Marks DO Admitting Clinician [phone] BLU MCGUIRE Admitting Clinician Unavailable JAC NAVARRO Admitting Clinician Unavailable QUENTIN MACIEL Admitting Clinician Unavailable CHRISTY HOLLIDAY Admitting Clinician Unavailable Payers Payer Name Policy Type Policy Number Effective Date Expirati on Date Source HIM [facility] O [id number] 2024 00:00:00 [facility] LEE COPAY FOCUS 9 [id number] 2024 00:00:00 [employer] COMM[employer] OUT OF NETWORK [id number] 2023 00:00:00 [employer] 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 ON 9 [id number] 2023 00:00:00 Problems Condition Name Condition Details Condition Category Status Onset Date Resolution Date Last Treatment Date Treating Clinician Comments Source Community acquired pneumonia of right lower lobe of lung Community acquired pneumonia of right lower lobe of lung Disease Active 07-18 00:00: 00 [facility] Acute exacerbati on of chronic [...] History of tobacco use Smokes tobacco daily [facility] beverage intake 2024-07-23 00:00:00 2024-07-23 00:00:00 4.29 /d [facility] History of Social function 2024-07-19 00:00:00 2024-07-19 00:00:00 [facility] Tobacco use and exposure 2024-07-18 00:00:00 2024-07-18 00:00:00 User of smokeless tobacco [facility] Tobacco Comment 2024-07-18 00:00:00 2024-07-18 00:00:00 trying to quit [facility] Alcohol Comment 2024-07-18 00:00:00 2024-07-18 00:00:00 2 1/2 cases daily [facility] Alcohol intake 2024-02-08 00:00:00 2024-02-08 00:00:00 4.29 /d [facility] Exposure to SARS-CoV-2 (event) 2022-10-04 00:00:00 2022-10-14 10:25:00 Not sure [facility] Sex assigned at 1970 00:00:00 1970 00:00:00 [facility] Smoking Status Start Date Stop Date Source Smokes tobacco daily 2024-07-18 00:00:00 [facility] Medications Ordered Medication Name Filled Medication Name Start Date Stop Date Current Medication? Ordering Clinician Indication Dosage Frequency Signature (SIG) Comments Components Source ketorolac (TORADOL) injection 30 mg 07-23 19:30: 00 07-23 18:21 :00 No 30mg 30 mg, Slow IV Push, ONCE, 1 dose, On 07/23/24 at 1430, Routine [facility] pantoprazol e (PROTONIX) injection 40 mg 07-23 17:30: 00 07-23 17:03 :00 No 40mg 40 mg, Slow IV Push, ONCE, 1 dose, On 07/23/24 at 1230 [facility] ipratropium -albuteroL (DUONEB) 0.5 mg-3 mg(2.5 mg base)/3 mL nebulizer solution 3 mL 07-23 17:15: 00 07-23 17:26 :00 No 3mL 3 mL, Inhalation , ONCE NOW, 1 dose, On 07/23/24 at 1215, Routine [facility] methylpredn isolone sod succ (SOLU-MEDRO L) injection 125 mg 07-23 17:15: 00 07-23 17:01 :00 No 125mg 125 mg, Intravenou s, ONCE, 1 dose, On 07/23/24 at 1215, 2 mL [facility] NaCl 0.9% (NS) bolus infusion 1,000 mL 07-23 17:15: 00 07-23 17:30 :00 No 1000mL at 999 mL/hr, 1,000 mL, IV Infusion, ONCE, 1 dose, On 07/23/24 at 1215, [facility] piperacilli n-tazobacta m (ZOSYN) 3.375 g in NaCl 0.9% (NS) 100 mL MINI-BAG 07-23 16:45: 00 07-23 17:40 :00 No 3.375g 3.375 g, IV Piggyback, ONCE, 1 dose, On 07/23/24 at 1145, Administer over 30 Minutes, 100 mL, Reason for Anti-Infec tive: Documented Infection, Documented Infection Site: Respirator y, Duration of Therapy: Once (ED) [facility] oxazepam (SERAX) capsule 15 mg 07-20 19:50: 52 07-21 19:59 :00 No 15mg 15 mg, Oral, Q12H TAPER, 2 doses, First dose on Thu07/20/24 at 1500, Last dose on Thu07/21/24 at 0300, [facility] levalbutero l (XOPENEX) nebulizer solution 0.63 mg 07-20 19:00: 00 Yes .63mg 0.63 mg, Inhalation , TID, First dose on Thu07/20/24 at 1400, Until Discontinu ed, [facility] spironolact one (ALDACTONE) tablet 25 mg 07-20 14:00: 00 Yes 25mg 25 mg, Oral, DAILY, First dose on Thu07/20/24 at 0900, Until Discontinu ed, [facility] Potassium Bicarb-Citr ic Acid (EFFER-K) effervescen t tablet 40 mEq 07-20 13:00: 00 07-21 12:59 :00 No 40meq 40 mEq, Oral, BID, 2 doses, First dose on Thu07/20/24 at 0800, Last dose on Thu07/20/24 at 2000, Routine [facility] amLODIPine (NORVASC) tablet 10 mg 07-19 22:30: 00 Yes 10mg 10 mg, Oral, DAILY, First dose on Thu07/19/24 at 1730, Until Discontinu ed, Routine [facility] hydralAZINE (APRESOLINE ) injection 10 mg 07-19 22:16: 33 Yes 10mg 10 mg, Slow IV Push, Q6HPRN, Starting on Thu07/19/24 at 1716, Until Discontinu ed, Routine, DBP=>100; SBP=>160, For SBP > 160 [facility] pantoprazol e (PROTONIX) injection 40 mg 07-19 21:30: 00 Yes 40mg 40 mg, Slow IV Push, Q24H, First dose on Thu07/19/24 at 1630, Until Discontinu ed [facility] bisacodyL (DULCOLAX) suppository 10 mg 07-19 21:15: 00 07-19 21:04 :00 No 10mg 10 mg, Rectal, ONCE, 1 dose, On Thu07/19/24 at 1615, Routine [facility] diphenhydrA MINE:lidoca ine 2% viscous:maa lox 1:1:1 ([facility]) oral suspension 15 mL 07-19 21:15: 00 07-19 21:02 :00 No 15mL 15 mL, Oral, ONCE, 1 dose, On Thu07/19/24 at 1615, [facility] LORazepam (ATIVAN) injection 1 mg 07-19 20:24: 20 Yes 1mg 1 mg, Slow IV Push, Q2HPRN, Starting on Thu07/19/24 at 1524, Until Discontinu ed, Routine, withdrawl [facility] predniSONE (DELTASONE) tablet 10 mg 07-19 14:00: 00 Yes 10mg 10 mg, Oral, DAILY, First dose on Thu07/19/24 at 0900, Until Discontinu ed, Routine [facility] HYDROcodone -acetaminop hen (NORCO) 10-325 mg tablet 1 tablet 07-19 12:53: 33 Yes 1{tbl} 1 tablet, Oral, Q6HPRN, Starting on Thu07/19/24 at 0753, Until Discontinu ed, Routine, Pain (scale 4-6) [facility] budesonide- formoteroL (SYMBICORT) 160-4.5 mcg/actuati on inhaler 2 Puff 07-19 01:00: 00 Yes 2{puff} 2 Puff, Inhalation , BID, First dose on Thu07/18/24 at 2000, Until Discontinu ed, [facility] ipratropium -albuteroL (DUONEB) 0.5 mg-3 mg(2.5 mg base)/3 mL nebulizer solution 3 mL 07-19 01:00: 00 07-20 16:26 :23 No 3mL 3 mL, Inhalation , QID, First dose on Thu07/18/24 at 2000, Until Discontinu ed, Routine [facility] D5W 0.45% NaCl (1/2NS) 1 L + KCL 20 mEq 07-18 22:30: 00 Yes IV Infusion, at 75 mL/hr, CONTINUOUS , Starting on Thu07/18/24 at 1730, Until Discontinu ed, Routine [facility] ampicillin- sulbactam (UNASYN) 3 g in NaCl [...] Respirator y, Duration of therapy: 5 days [facility] enoxaparin (LOVENOX) injection 40 mg 07-18 22:00: 00 Yes 40mg 40 mg, Subcutaneo us, DAILY, First dose on Thu07/18/24 at 1700, Until Discontinu ed, Routine [facility] nicotine (NICODERM) 21 mg/24 hr patch 1 Patch 07-18 19:15: 00 Yes 1{patch } 1 Patch, Topical, Administer over 24 Hours, Q24H, First dose on Thu07/18/24 at 1415, Until Discontinu ed, Routine [facility] dexMEDEtomi dine 200 mcg in 0.9 % [...] at maximum allowed dose, contact prescriber . [facility] ketorolac (TORADOL) injection 30 mg 07-18 14:45: 00 07-18 15:15 :00 No 30mg 30 mg, Slow IV Push, ONCE, 1 dose, On Thu07/18/24 at 0945, [facility] NaCl 0.9% (NS) bolus infusion 1,000 mL 07-18 14:30: 00 07-18 16:30 :00 No 1000mL at 999 mL/hr, 1,000 mL, IV Infusion, ONCE, 1 dose, On Thu07/18/24 at 0930, [facility] thiamine mononitrate (VITAMIN B-1 (MONONITRAT E)) tablet 100 mg 07-18 14:00: 00 Yes 100mg 100 mg, Oral, DAILY, First dose on Thu07/18/24 at 0900, Until Discontinu ed, Routine [facility] foLIC acid (FOLATE) tablet 1 mg 07-18 14:00: 00 Yes 1mg 1 mg, Oral, DAILY, First dose on Thu07/18/24 at 0900, Until Discontinu ed, Routine [facility] methylpredn isolone sod succ (SOLU-MEDRO L) injection 125 mg 07-18 14:00: 00 07-18 13:12 :00 No 125mg 125 mg, Intravenou s, ONCE, 1 dose, On Thu07/18/24 at 0900, 2 mL [facility] oxazepam (SERAX) capsule 15 mg 07-18 13:50: 52 Yes 15mg 15 mg, Oral, Q4HPRN, Starting on Thu07/18/24 at 0850, Until Discontinu ed, Routine, Only while awake for DBP equal to or greater than 100, HR equal to or greater than 100. [facility] proMETHazin e (PHENERGAN) 12.5 mg in NS 50 mL IV piggyback (CNR) 07-18 13:45: 00 07-18 14:29 :00 No 12.5mg 12.5 mg, IV Piggyback, at 200 mL/hr Administer over 15 Minutes, ONCE, 1 dose, On Thu07/18/24 at 0845, [facility] cefTRIAXone (ROCEPHIN) 1,000 mg in NaCl 0.9% (NS) 100 mL MINI-BAG 07-18 13:30: 00 07-18 14:13 :00 No 1000mg 1,000 mg, IV Piggyback, ONCE, 1 dose, On Thu07/18/24 at 0830, Administer over 30 Minutes, 100 mL, Reason for Anti-Infec tive: Documented Infection, Documented Infection Site: Respirator y, Duration of Therapy: Once (ED) [facility] ipratropium -albuteroL (DUONEB) 0.5 mg-3 mg(2.5 mg base)/3 mL nebulizer solution 3 mL 07-18 13:30: 00 07-18 12:47 :00 No 3mL 3 mL, Inhalation , ONCE, 1 dose, On Thu07/18/24 at 0830, [facility] aspirin tablet 325 mg 07-18 13:15: 00 07-18 12:37 :00 No 325mg 325 mg, Oral, ONCE, 1 dose, On Thu07/18/24 at 0815, [facility] NaCl 0.9% (NS) bolus infusion 1,000 mL 07-18 13:00: 00 07-18 14:57 :00 No 1000mL at 999 mL/hr, 1,000 mL, IV Infusion, ONCE, 1 dose, On Thu07/18/24 at 0800, [facility] LORazepam (ATIVAN) injection 1 mg 07-18 12:45: 00 07-18 12:46 :00 No 1mg 1 mg, Slow IV Push, ONCE, 1 dose, On Thu07/18/24 at 0745, STAT [facility] famotidine (PEPCID (PF)) injection 20 mg 07-18 12:15: 00 07-18 12:37 :00 No 20mg 20 mg, Slow IV Push, ONCE, 1 dose, On Thu07/18/24 at 0715, [facility] ondansetron (ZOFRAN (PF)) injection 8 mg 07-18 12:15: 00 07-18 12:37 :00 No 8mg 8 mg, Slow IV Push, ONCE, 1 dose, On Thu07/18/24 at 0715, [facility] albuterol sulfate HFA 90 mcg/actuati [...] 1 dose, On Thu05/24/24 at 0900, [facility] mupirocin 2 % ointment 05-24 00:00: 00 Yes [id number] 6 Apply to area(s) 3 (three) times daily. [facility] cephALEXin 500 mg tablet 05-24 00:00: 00 06-01 04:59 :00 No [id number] 6 500mg Take 1 tablet by mouth 4 (four) times daily for 7 days. [facility] ketorolac (TORADOL) injection 30 mg [...] 02-07 22:30: 00 02-07 22:30 :00 No [id number] 100mL 100 mL, Intravenou s, ONCE, 1 [...] ONCE, 1 dose, On Thu02/08/24 at 1615, [facility] magnesium sulfate in water 2 [...] ONCE, 1 dose, On Thu02/08/24 at 1530, [facility] HYDROcodone -acetaminop hen (NORCO) 10-325 mg tablet 1 tablet 01-13 13:15: 00 01-13 12:15 :00 No 1{tbl} 1 tablet, Oral, ONCE, 1 dose, On Thu01/14/24 at 0715, [facility] ipratropium -albuteroL (DUONEB) 0.5 mg-3 mg(2.5 mg base)/3 mL nebulizer solution 3 mL 01-13 13:00: 00 01-13 11:53 :00 No 3mL 3 mL, Inhalation , ONCE NOW, 1 dose, On Thu01/14/24 at 0700, [facility] ondansetron (ZOFRAN (PF)) injection 4 mg 01-13 11:30: 00 01-13 11:37 :00 No 4mg 4 mg, Slow IV Push, ONCE, 1 dose, On Thu01/14/24 at 0530, [facility] morpHINE (4 mg/mL) injection 4 mg 01-13 11:30: 00 01-13 11:37 :00 No 4mg 4 mg, Slow IV Push, ONCE, 1 dose, On Thu01/14/24 at 0530, STAT [facility] azithromyci n (ZITHROMAX Z-PORTER) 250 mg tablet 01-13 00:00: 00 02-16 00:00 :00 No [id number] Take 500 mg on day 1 then 250 mg on days 2-5 [facility] predniSONE 20 mg tablet 01-13 00:00: 00 02-16 00:00 :00 No [id number] Take 1 po tid x 2 days, [...] ONCE, 1 dose, On Thu12/22/23 at 2230, [facility] maalox:diph enhydrAMINE :lidocaine 2 [...] ONCE, 1 dose, On Thu12/22/23 at 2215, [facility] HYDROcodone -acetaminop hen (NORCO) [...] 12-22 03:30: 00 12-22 03:30 :00 No [id number] 100mL 100 mL, Intravenou s, ONCE, 1 [...] 25 mg suppository 12-22 00:00: 00 Yes [id number] 25mg Insert 1 Suppositor y into rectum 2 (two) times daily as needed for Rectal itching/pa in. [facility] ondansetron 4 mg disintegrat ing tablet 12-22 00:00: 00 02-16 00:00 :00 No [id number] 4mg Take 1 tablet by mouth every 8 (eight) hours as needed for Nausea and Vomiting (N/V). [facility] amoxicillin -clavulanat e 875-125 mg per tablet 12-22 00:00: 00 01-02 05:59 :00 No [id number] 1{tbl} Take 1 tablet by mouth every [...] s
Durat ion of therapy: Once (ED) [facility] DICLOFEN SOD 75MG EC 04-08 [...] 00:00: 00 Yes Tunde Haro AMOX/K CLAV 996-180 0838-0 3-03 00:00: 00 Yes Tunde Haro iopamidol (ISOVUE 370-500 mL) injection 70 mL 2021-11- 18:30: 00 10-14 18:30 :00 No [id number] 70mL 70 mL, Intravenou s, ONCE, 1 [...] 2021-11 00:00: 00 02-16 00:00 :00 No [id number] 750mg Take 1 tablet by mouth every [...] 1 dose, On Thu02/20/22 at 0530, Routine [facility] triamterene -hydrochlor othiazid 37.5-25 mg tablet 02-20 00:00: 00 Yes [id number] 1{tbl} Take 1 tablet by mouth daily. [facility] albuterol 90 mcg/actuati on inhaler 02-20 00:00: 00 07-20 00:00 :00 No [id number] 2{puff} Inhale 2 Puffs every 4 (four) hours as needed for Wheezing or Shortness of Breath. [facility] chlordiazeP OXIDE 25 mg capsule 02-20 00:00: 00 07-20 00:00 :00 No [id number] 25mg Take 1 capsule by mouth every 6 (six) hours as needed for Anxiety, Agitation, Heart Rate => 100 or Detox. [facility] predniSONE 10 mg tablet 02-20 00:00: 00 02-16 00:00 :00 No [id number] TAKE ONE TABLET BY MOUTH DAILY [facility] albuterol 2.5 mg /3 mL (0.083 %) nebulizer solution 02-20 00:00: 00 02-16 00:00 :00 No [id number] 2.5mg Inhale 3 mL every 4 (four) hours. May also nebulize one extra every 6 hours. [facility] budesonide- formoteroL 160-4.5 mcg/actuati on inhaler 02-20 00:00: 00 02-16 00:00 :00 No [id number] 2{puff} Inhale 2 Puffs 2 (two) times [...] SARS-COV-2 COVID-19 PFIZER VACCINE 2021-02-03 00:00:00 Completed [facility] SARS-COV-2 COVID-19 PFIZER VACCINE 2021-02-03 00:00:00 Completed [facility] SARS-COV-2 COVID-19 PFIZER VACCINE 2021-02-03 00:00:00 Completed [facility] SARS-COV-2 COVID-19 PFIZER VACCINE 2021-01-13 00:00:00 Completed [facility] SARS-COV-2 COVID-19 PFIZER VACCINE 2021-01-13 00:00:00 Completed [facility] SARS-COV-2 COVID-19 PFIZER VACCINE 2021-01-13 00:00:00 Completed [facility] Pneumococcal Polysaccharide, PPSV23 (PNEUMOVAX) 2018-03-26 00:00:00 Completed [facility] Influenza Virus Vaccine Quad IM 3+ YRS 2018-03-26 00:00:00 Completed [facility] Pneumococcal Polysaccharide, PPSV23 (PNEUMOVAX) 2018-03-26 00:00:00 Completed [facility] Influenza Virus Vaccine Quad IM 3+ YRS 2018-03-26 00:00:00 Completed [facility] Pneumococcal Polysaccharide, PPSV23 (PNEUMOVAX) 2018-03-26 00:00:00 Completed [facility] Influenza Virus Vaccine Quad IM 3+ YRS 2018-03-26 00:00:00 Completed [facility] Pneumococcal Polysaccharide, PPSV23 (PNEUMOVAX) Unknown [facility] Influenza Virus Vaccine Quad IM 3+ YRS Unknown Completed [facility] SARS-COV-2 COVID-19 PFIZER VACCINE Unknown Completed [facility] Pneumococcal Polysaccharide, PPSV23 (PNEUMOVAX) Unknown [facility] Influenza Virus Vaccine Quad IM 3+ YRS Unknown Completed [facility] SARS-COV-2 COVID-19 PFIZER VACCINE Unknown Completed [facility] Pneumococcal Polysaccharide, PPSV23 (PNEUMOVAX) Unknown Completed [facility] Influenza Virus Vaccine Quad IM 3+ YRS Unknown Completed [facility] SARS-COV-2 COVID-19 PFIZER VACCINE Unknown Completed [facility] Pneumococcal Polysaccharide, PPSV23 (PNEUMOVAX) Unknown Completed [facility] Influenza Virus Vaccine Quad IM 3+ YRS Unknown Completed [facility] SARS-COV-2 COVID-19 PFIZER VACCINE Unknown Completed [facility] Pneumococcal Polysaccharide, PPSV23 (PNEUMOVAX) Unknown Completed [facility] Influenza Virus Vaccine Quad IM 3+ YRS Unknown Completed [facility] SARS-COV-2 COVID-19 PFIZER VACCINE Unknown Completed [facility] Pneumococcal Polysaccharide, PPSV23 (PNEUMOVAX) Unknown Completed [facility] Influenza Virus Vaccine Quad IM 3+ YRS Unknown Completed [facility] SARS-COV-2 COVID-19 PFIZER VACCINE Unknown Completed [facility] Pneumococcal Polysaccharide, PPSV23 (PNEUMOVAX) Unknown Completed [facility] Influenza Virus Vaccine Quad IM 3+ YRS Unknown Completed [facility] SARS-COV-2 COVID-19 PFIZER VACCINE Unknown Completed [facility] Pneumococcal Polysaccharide, PPSV23 (PNEUMOVAX) Unknown Completed [facility] Influenza Virus Vaccine Quad IM 3+ YRS Unknown Completed [facility] SARS-COV-2 COVID-19 PFIZER VACCINE Unknown Completed [facility] Pneumococcal Polysaccharide, PPSV23 (PNEUMOVAX) Unknown Completed [facility] Influenza Virus Vaccine Quad IM 3+ YRS Unknown Completed [facility] SARS-COV-2 COVID-19 PFIZER VACCINE Unknown Completed [facility] Pneumococcal Polysaccharide, PPSV23 (PNEUMOVAX) Unknown Completed [facility] Influenza Virus Vaccine Quad IM 3+ YRS Unknown Completed [facility] SARS-COV-2 COVID-19 PFIZER VACCINE Unknown Completed [facility] Pneumococcal Polysaccharide, PPSV23 (PNEUMOVAX) Unknown Completed [facility] Influenza Virus Vaccine Quad IM 3+ YRS Unknown Completed [facility] SARS-COV-2 COVID-19 PFIZER VACCINE Unknown Completed [facility] Pneumococcal Polysaccharide, PPSV23 (PNEUMOVAX) Unknown Completed [facility] Influenza Virus Vaccine Quad IM 3+ YRS Unknown Completed [facility] SARS-COV-2 COVID-19 PFIZER VACCINE Unknown Completed [facility] Vital Signs Vital Name Observation Time Observation Value Comments S ource Systolic blood pressure 2024-07-23 18:00:00 175 mm[Hg] [facility] Diastolic blood pressure 2024-07-23 18:00:00 109 mm[Hg] [facility] Heart rate 2024-07-23 18:00:00 87 /min [facility] Respiratory rate 2024-07-23 18:00:00 16 /min [facility] Oxygen saturation in Arterial blood by Pulse oximetry 2024-07-23 18:00:00 100 /min [facility] Body temperature 2024-07-23 16:15:00 36.61 Debbie [facility] Body height 2024-07-23 16:15:00 162.6 cm [facility] Body weight 2024-07-23 16:15:00 123.832 kg [facility] BMI 2024-07-23 16:15:00 46.86 kg/m2 [facility] Heart rate 2024-07-20 19:15:00 116 /min [facility] Respiratory rate 2024-07-20 19:15:00 10 /min [facility] Oxygen saturation in Arterial blood by Pulse oximetry 2024-07-20 19:15:00 100 /min [facility] Systolic blood pressure 2024-07-20 17:00:00 149 mm[Hg] [facility] Diastolic blood pressure 2024-07-20 17:00:00 131 mm[Hg] [facility] Body temperature 2024-07-20 16:00:00 37.06 Debbie [facility] Body weight 2024-07-20 08:00:00 82.5 kg [facility] BMI 2024-07-20 08:00:00 31.22 kg/m2 [facility] Body height 2024-07-18 14:23:00 162.6 cm [facility] Systolic blood pressure 2024-07-18 01:00:00 176 mm[Hg] [facility] Diastolic blood pressure 2024-07-18 01:00:00 88 mm[Hg] [facility] Heart rate 2024-07-18 01:00:00 113 /min [facility] Respiratory rate 2024-07-18 01:00:00 18 /min [facility] Oxygen saturation in Arterial blood by Pulse oximetry 2024-07-18 01:00:00 95 /min [facility] Body temperature 2024-07-18 00:52:00 37.33 Debbie [facility] Body height 2024-07-18 00:52:00 162.6 cm [facility] Body weight 2024-07-18 00:52:00 122.925 kg [facility] BMI 2024-07-18 00:52:00 46.52 kg/m2 [facility] Systolic blood pressure 2024-05-24 13:51:42 157 mm[Hg] [facility] Diastolic blood pressure 2024-05-24 13:51:42 93 mm[Hg] [facility] Heart rate 2024-05-24 13:51:42 98 /min [facility] Respiratory rate 2024-05-24 13:51:42 18 /min [facility] Oxygen saturation in Arterial blood by Pulse oximetry 2024-05-24 13:51:42 97 /min [facility] Body temperature 2024-05-24 13:36:00 36.78 Debbie [facility] Body height 2024-05-24 13:36:00 162.6 cm [facility] Body weight 2024-05-24 13:36:00 78.472 kg [facility] BMI 2024-05-24 13:36:00 29.70 kg/m2 [facility] Systolic blood pressure 2024-02-18 01:57:00 134 mm[Hg] [facility] Diastolic blood pressure 2024-02-18 01:57:00 94 mm[Hg] [facility] Body height 2024-02-18 01:57:00 162.6 cm [facility] Body weight 2024-02-18 01:57:00 79.379 kg [facility] BMI 2024-02-18 01:57:00 30.04 kg/m2 [facility] Heart rate 2024-02-18 01:53:00 110 /min [facility] Body temperature 2024-02-18 01:53:00 36.61 Debbie [facility] Respiratory rate 2024-02-18 01:53:00 24 /min [facility] Oxygen saturation in Arterial blood by Pulse oximetry 2024-02-18 01:53:00 93 /min [facility] [facility] Systolic blood pressure 2024-02-09 01:54:05 150 mm[Hg] [facility] Diastolic blood pressure 2024-02-09 01:54:05 91 mm[Hg] [facility] Heart rate 2024-02-09 01:54:05 87 /min [facility] Respiratory rate 2024-02-09 01:54:05 17 /min [facility] Oxygen saturation in Arterial blood by Pulse oximetry 2024-02-09 01:54:05 93 /min [facility] Body temperature 2024-02-09 01:45:00 36.67 Debbie [facility] Body height 2024-02-09 01:45:00 162.6 cm [facility] Body weight 2024-02-09 01:45:00 81.194 kg [facility] BMI 2024-02-09 01:45:00 30.73 [facility]2 [facility] Respiratory rate 2024-02-08 21:00:00 18 /min [facility] Oxygen saturation in Arterial blood by Pulse oximetry 2024-02-08 21:00:00 96 /min [facility] Systolic blood pressure 2024-02-08 20:27:00 164 mm[Hg] [facility] Diastolic blood pressure 2024-02-08 20:27:00 90 mm[Hg] [facility] Heart rate 2024-02-08 20:27:00 83 /min [facility] Body temperature 2024-02-08 19:12:00 36.83 Debbie [facility] Body height 2024-02-08 19:12:00 162.6 cm [facility] Body weight 2024-02-08 19:12:00 81.194 kg [facility] BMI 2024-02-08 19:12:00 30.73 kg/m2 [facility] Heart rate 2024-01-14 12:15:00 98 /min [facility] Body temperature 2024-01-14 12:15:00 36.56 Debbie [facility] Respiratory rate 2024-01-14 12:15:00 14 /min [facility] Oxygen saturation in Arterial blood by Pulse oximetry 2024-01-14 12:15:00 95 /min [facility] Systolic blood pressure 2024-01-14 12:00:00 140 mm[Hg] [facility] Diastolic blood pressure 2024-01-14 12:00:00 90 mm[Hg] [facility] Body height 2024-01-14 10:51:00 162.6 cm [facility] Body weight 2024-01-14 10:51:00 81.194 kg [facility] BMI 2024-01-14 10:51:00 30.73 kg/m2 [facility] Systolic blood pressure 2023-12-23 05:02:00 133 mm[Hg] [facility] Diastolic blood pressure 2023-12-23 05:02:00 84 mm[Hg] [facility] Heart rate 2023-12-23 05:02:00 78 /min [facility] Body temperature 2023-12-23 05:02:00 36.17 Debbie [facility] Respiratory rate 2023-12-23 05:02:00 17 /min [facility] Oxygen saturation in Arterial blood by Pulse oximetry 2023-12-23 05:02:00 91 /min [facility] Body height 2023-12-23 03:45:00 162.6 cm [facility] Body weight 2023-12-23 03:45:00 81.194 kg [facility] BMI 2023-12-23 03:45:00 30.73 kg/m2 [facility] Systolic blood pressure 2023-12-22 02:08:00 143 mm[Hg] [facility] Diastolic blood pressure 2023-12-22 02:08:00 92 mm[Hg] [facility] Heart rate 2023-12-22 02:08:00 81 /min [facility] Respiratory rate 2023-12-22 02:08:00 13 /min [facility] Oxygen saturation in Arterial blood by Pulse oximetry 2023-12-22 02:08:00 95 /min [facility] Body temperature 2023-12-22 01:33:00 36.72 Debbie [facility] Body height 2023-12-22 01:33:00 162.6 cm [facility] Body weight 2023-12-22 01:33:00 81.239 kg [facility] BMI 2023-12-22 01:33:00 30.74 kg/m2 [facility] Systolic blood pressure 2023-11-11 02:00:00 127 mm[Hg] [facility] Diastolic blood pressure 2023-11-11 02:00:00 87 mm[Hg] [facility] Heart rate 2023-11-11 02:00:00 79 /min [facility] Respiratory rate 2023-11-11 02:00:00 20 /min [facility] Oxygen saturation in Arterial blood by Pulse oximetry 2023-11-11 02:00:00 98 /min [facility] Body temperature 2023-11-11 01:31:00 36.28 Debbie [facility] Body height 2023-11-11 01:31:00 162.6 cm [facility] Body weight 2023-11-11 01:31:00 79.379 kg [facility] BMI 2023-11-11 01:31:00 30.04 kg/m2 [facility] Systolic blood pressure 2023-10-27 06:54:00 133 mm[Hg] [facility] Diastolic blood pressure 2023-10-27 06:54:00 94 mm[Hg] [facility] Heart rate 2023-10-27 06:54:00 95 /min [facility] Body temperature 2023-10-27 06:54:00 36.44 Debbie [facility] Respiratory rate 2023-10-27 06:54:00 22 /min [facility] Body height 2023-10-27 06:54:00 162.6 cm [facility] Body weight 2023-10-27 06:54:00 78.472 kg [facility] BMI 2023-10-27 06:54:00 29.70 kg/m2 [facility] Oxygen saturation in Arterial blood by Pulse oximetry 2023-10-27 06:54:00 94 /min [facility] Systolic blood pressure 2022-10-14 19:43:00 111 mm[Hg] [facility] Diastolic blood pressure 2022-10-14 19:43:00 74 mm[Hg] [facility] Heart rate 2022-10-14 19:43:00 98 /min [facility] Body temperature 2022-10-14 19:43:00 36.39 Debbie [facility] Respiratory rate 2022-10-14 19:43:00 22 /min [facility] Oxygen saturation in Arterial blood by Pulse oximetry 2022-10-14 19:43:00 94 /min [facility] Body height 2022-10-14 16:13:00 162.6 cm [facility] Body weight 2022-10-14 16:13:00 81.647 kg [facility] BMI 2022-10-14 16:13:00 30.90 kg/m2 [facility] Systolic blood pressure 2022-03-12 10:13:00 119 mm[Hg] [facility] Diastolic blood pressure 2022-03-12 10:13:00 75 mm[Hg] [facility] Heart rate 2022-03-12 10:13:00 105 /min [facility] Body temperature 2022-03-12 10:13:00 37.28 Debbie [facility] Respiratory rate 2022-03-12 10:13:00 19 /min [facility] Body height 2022-03-12 10:13:00 162.6 cm [facility] Body weight 2022-03-12 10:13:00 99.791 kg [facility] BMI 2022-03-12 10:13:00 37.76 kg/m2 [facility] Oxygen saturation in Arterial blood by Pulse oximetry 2022-03-12 10:13:00 96 /min [facility] Systolic blood pressure 2022-02-20 11:57:00 155 mm[Hg] [facility] Diastolic blood pressure 2022-02-20 11:57:00 88 mm[Hg] [facility] Heart rate 2022-02-20 11:57:00 105 /min [facility] Respiratory rate 2022-02-20 11:57:00 18 /min [facility] Oxygen saturation in Arterial blood by Pulse oximetry 2022-02-20 11:57:00 100 /min [facility] Body temperature 2022-02-20 09:25:00 37 Edbbie [facility] Body height 2022-02-20 09:25:00 162.6 cm [facility] Body weight 2022-02-20 09:25:00 96.163 kg [facility] BMI 2022-02-20 09:25:00 36.39 kg/m2 [facility] Respiratory Rate 2024-05-26 13:39:00 16.00 [...] Source EKG-12 LEAD 2024-07-23 19:32:17 Yary Camp [facility] LACTIC ACID WHOLE BLOOD 2024-07-23 18:23:00 Mike Camp [facility] LIPASE 2024-07-23 17:05:00 Kathrin Yary [facility] TROPONIN I 2024-07-23 17:05:00 Kathrin Yary [facility] COMP. METABOLIC PANEL ([id number]) 2024-07-23 17:05:00 Yary Camp [facility] ETHANOL 2024-07-23 17:05:00 Yary Camp [facility] CBC WITH DIFF 2024-07-23 17:05:00 Yary Camp [facility] N-TERMINAL PRO-BNP 2024-07-23 17:05:00 Yary Camp [facility] HB ECG ROUTINE & RHYTHM STRIP 2024-07-20 14:13:43 Julien Marks [facility] MAGNESIUM 2024-07-20 08:21:00 Julien Marks [facility] BASIC METABOLIC PANEL (NA, K, CL, CO2, GLUCOSE, BUN, CREATININE, CA) 2024-07-20 08:21:00 Julien Marks [facility] CBC WITH DIFF 2024-07-20 08:21:00 Julien Marks [facility] MAGNESIUM 2024-07-19 09:24:00 Julien Marks [facility] BASIC METABOLIC PANEL (NA, K, CL, CO2, GLUCOSE, BUN, CREATININE, CA) 2024-07-19 09:24:00 Julien Marks [facility] CBC WITH DIFF 2024-07-19 09:24:00 Julien Marks [facility] LEGIONELLA AND STREPTOCOCCUS PNEUMONIAE URINARY ANTIGENS 2024-07-19 02:12:00 Julien Marks [facility] PROCALCITONIN 2024-07-18 21:39:00 Julien Marks [facility] LACTIC ACID WHOLE BLOOD 2024-07-18 15:51:00 Alfred Marks [facility] URINE DRUG (IMMUNOASSAY) - COMPREHENSIVE DRUG SCREEN W/O REFLEX 2024-07-18 15:31:00 Blu Mcguire [facility] MRSA / MSSA SCREEN BY PCR, NARES 2024-07-18 14:47:00 Julien Marks [facility] CT THORAX WO CONTRAST 2024-07-18 14:42:00 Rajinder Marks [facility] BLOOD CULTURE SCREEN 2024-07-18 13:01:00 Shay Stinson [facility] LACTIC ACID WHOLE BLOOD 2024-07-18 13:01:00 Facundo Stinson [facility] INFLUENZA A/B RSV COVID NAAT 2024-07-18 12:49:00 Shay Stinson [facility] LAB ONLY COVID INTERPRETATION 2024-07-18 12:49:00 Shay Stinson [facility] COMP. METABOLIC PANEL ([id number]) 2024-07-18 12:21:00 Blu Mcguire [facility] CRITICAL CARE 2024-07-18 12:12:28 Shay Stinson [facility] XR CHEST 1 VW 2024-07-18 11:40:27 Blu Mcguire [facility] TROPONIN I 2024-07-18 11:18:00 Blu Mcguire [facility] ETHANOL 2024-07-18 11:18:00 Blu Mcguire [facility] CBC WITH DIFF 2024-07-18 11:18:00 Blu Mcguire [facility] N-TERMINAL PRO-BNP 2024-07-18 11:18:00 Blu Mcguire [facility] HB ECG ROUTINE & RHYTHM STRIP 2024-07-18 11:10:41 Blu Mcguire [facility] XR CHEST 1 VW 2024-07-18 01:34:48 Blu Mcguire [facility] TROPONIN I 2024-07-18 00:56:00 [facility] COMP. METABOLIC PANEL ([id number]) 2024-07-18 00:56:00 Blu Mcguire [facility] ETHANOL 2024-07-18 00:56:00 Blu Mcguire [facility] CBC WITH DIFF 2024-07-18 00:56:00 Blu Mcguire [facility] N-TERMINAL PRO-BNP 2024-07-18 00:56:00 Blu Mcguire [facility] AC PANEL 20 + LACTIC ACID 2024-02-08 20:47:00 Christina Villarreal [facility] XR CHEST 1 VW 2024-02-08 19:47:00 Christina [facility]real [facility] URINALYSIS 2024-02-08 19:36:00 Christina Villarreal [facility] MAGNESIUM 2024-02-08 19:25:00 [facility] TROPONIN I 2024-02-08 19:25:00 [facility]real [facility] COMP. METABOLIC PANEL ([id number]) 2024-02-08 19:25:00 Christina Villarreal [facility] ETHANOL 2024-02-08 19:25:00 Christina Villarreal [facility] CBC WITH DIFF 2024-02-08 19:25:00 Christina [facility]real [facility] N-TERMINAL PRO-BNP 2024-02-08 19:25:00 Christina Villarreal [facility] EKG-12 LEAD 2024-01-14 12:00:51 Jac Navarro [facility] LIPASE 2024-01-14 11:11:00 Jac Navarro [facility] TROPONIN I 2024-01-14 11:11:00 Jac Navarro [facility] COMP. METABOLIC PANEL ([id number]) 2024-01-14 11:11:00 Jac Navarro [facility] ETHANOL 2024-01-14 11:11:00 Jac Navarro [facility] CBC WITH DIFF 2024-01-14 11:11:00 [facility] N-TERMINAL PRO-BNP 2024-01-14 11:11:00 Jac Navarro [facility] COVID-19 (ID NOW RAPID TESTING) 2024-01-14 11:11:00 Jac Navarro [facility] CONSENT/REFUSAL FOR DIAGNOSIS AND TREATMENT 2024-01-14 10:44:32 Doctor Unassigned, [place] [facility] LIPASE 2023-12-23 04:17:00 Cailin Rowe Un [facility] COMP. METABOLIC PANEL ([id number]) 2023-12-23 04:17:00 Cailin Rowe [facility] CBC WITH DIFF 2023-12-23 04:17:00 [facility]23-12-23 04:17:00 Cailin Rowe Un [facility] CONSENT/REFUSAL FOR DIAGNOSIS AND TREATMENT 2023-12-23 03:40:32 Doctor Unassigned, [place] [facility] CT ABDOMEN PELVIS W CONTRAST 2023-12-22 02:31:05 Quentin Maciel [facility] LIPASE 2023-12-22 01:58:00 Quentin Maciel [facility] COMP. METABOLIC PANEL ([id number]) 2023-12-22 01:58:00 Quentin Maciel [facility] ETHANOL 2023-12-22 01:58:00 Quentin Maciel [facility] CBC WITH DIFF 2023-12-22 01:58:00 Quentin Maciel [facility] PROTHROMBIN TIME / INR 2023-12-22 01:58:00 Wali Maciel [facility] URINALYSIS 2023-12-22 01:58:00 [facility] CONSENT/REFUSAL FOR DIAGNOSIS AND TREATMENT 2023-12-22 01:19:14 Doctor Unassigned, [place] [facility] NOTICE OF PRIVACY PRACTICES 2023-11-11 01:24:24 Doctor Unassigned, [place] [facility] CONSENT/REFUSAL FOR DIAGNOSIS AND TREATMENT 2023-11-11 01:23:54 Doctor Unassigned, [place] [facility] COVID-19 (ID NOW RAPID TESTING) 2023-10-27 07:09:00 Jac Navarro [facility] NOTICE OF PRIVACY PRACTICES 2023-10-27 06:49:48 Doctor Unassigned, [place] [facility] CONSENT/REFUSAL FOR DIAGNOSIS AND TREATMENT 2023-10-27 06:47:40 Doctor Unassigned, [place] [facility] CT ABDOMEN PELVIS W CONTRAST 2022-10-14 17:33:00 Quentin Maciel [facility] XR CHEST 1 VW 2022-10-14 17:10:37 Singer [facility] TROPONIN I 2022-10-14 16:37:00 Qu[facility] COMP. METABOLIC PANEL ([id number]) 2022-10-14 16:37[facility] 2022-10-14 16:37:00 Quentin Maciel [facility] PROTHROMBIN TIME / INR 2022-10-14 16:37:00 [facility] 2022-10-14 16:37:00 [facility] N-TERMINAL PRO-BNP 2022-10-14 16:37:00 Quentin Maciel [facility] CONSENT/REFUSAL FOR DIAGNOSIS AND TREATMENT 2022-10-14 15:56:36 Doctor Unassigned, [place] [facility] CONSENT/REFUSAL FOR DIAGNOSIS AND TREATMENT 2022-03-12 10:03:12 Doctor Unassigned, [place] [facility] XR CHEST 1 VW 2022-02-20 09:59:00 Christy Holliday [facility] LIPASE 2022-02-20 09:30:00 Christy Holliday [facility] TROPONIN I 2022-02-20 09:30:00 Christy Holliday [facility] COMP. METABOLIC PANEL ([id number]) 2022-02-20 09:30:00 Christy Holliday [facility] CBC WITH DIFF 2022-02-20 09:30:00 Christy Holliday [facility] N-TERMINAL PRO-BNP 2022-02-20 09:30:00 Christy Holliday [facility] NOTICE OF PRIVACY PRACTICES 2022-02-20 09:15:02 Doctor Unassigned, [place] [facility] CONSENT/REFUSAL FOR DIAGNOSIS AND TREATMENT 2022-02-20 09:14:47 Doctor Unassigned, [place] [facility] Encounters Start Date/Time End Date/Time Encounter Type Admission Type Attending [facility] Care Department Encounter ID Source 2024-07-23 11:09:00 2024-07-23 13:55:00 Emergency X YARY CAMP PAMALA [facility] E[facility] [id number] [facility] 2024-07-23 11:09:00 2024-07-23 13:55:00 Emergency Yary Camp [facility] 1.2.840.114 350.1.13.10 4.2.7.2.686 [id number] [facility] 2024-07-18 06:09:00 2024-07-20 15:00:00 Inpatient X JULIEN MARKS [facility] JOÃO [id number] [facility] 2024-07-18 06:09:00 2024-07-20 15:00:00 Hospital Encounter Blu Mcguire [facility], David [facility] 1.2.840.114 350.1.13.10 4.2.7.2.686 [id number] [facility] 2024-07-17 19:49:00 2024-07-17 21:02:00 Emergency X LAUREEN MCGUIREBLU SANDERS [facility] ERT [id number] [facility] 2024-07-17 19:49:00 2024-07-17 21:02:00 Emergency Maynor Blu [facility] 1.2.840.114 350.1.13.10 4.2.7.2.686 [id number] [facility] 2024-06-06 10:15:00 2024-06-06 10:15:00 Outpatient WENDY BROWNLEE [id number] Maria Elena Alcantara 2024-05-26 13:21:21 2024-05-26 13:21:21 Outpatient SFA SFA [id number] Tunde Haro 2024-05-26 00:00:00 2024-05-26 00:00:[address] [facility] [id number] Tunde Haro 2024-05-24 08:36:00 2024-05-24 09:39:00 Emergency X MYRNA SANDHU [facility] ERT [id number] [facility] 2024-05-24 08:36:00 2024-05-24 09:39:00 Emergency Mil Myrna [facility] ..840.114 350.1.13.10 4.2.7.2.686 [id number] [facility] 2024-04-14 16:30:00 2024-04-14 16:30:00 Outpatient DARIEN LOBO [id number] Maria Elena Alcantara 2024-04-12 11:00:00 2024-04-12 11:00:00 Outpatient MINNA ORTA MARIA ELENA BECERRA [id number] Maria Elena [facility] 2024-04-12 11:00:00 2024-04-12 11:00:00 Outpatient KEMWENDY POPE [facility] [id number] [facility] 2024-04-12 00:00:00 2024-04-12 00:00:00 Outpatient SHARATH HALEY [facility] ELENA [facility] [id number] Maria Elena [facility] 2024-04-05 11:30:00 2024-04-05 11:30:00 Outpatient ALFREDONIURKADARIEN Olson [facility] E[facility]NA [facility] [id number] Maria Elena [facility] 2024-04-05 00:00:00 2024-04-05 00:00:00 Outpatient DARIEN LOBO MARIA ELENA BECERRA [id number] [facility] 2024-03-28 00:00:00 2024-03-28 00:00:00 Outpatient DARIEN LOBO MARIA ELENA BECERRA [id number] [facility] 2024-03-15 08:30:00 2024-03-15 08:30:00 Outpatient WENDY BROWNLEE [facility] ELENA [facility] [id number] [facility] 2024-02-17 20:58:00 2024-02-17 21:44:00 Emergency X SALUDYARY JOHN [facility] ERT [id number] [facility] 2024-02-17 20:58:00 2024-02-17 21:44:00 Emergency Yary Camp [facility] 1.2.840.114 350.1.13.10 4.2.7.2.686 [id number] [facility] 2024-02-09 13:10:00 2024-02-09 15:14:00 Emergency E TUNDE [facility]INT[facility]ILLA [facility] [id number] [address] [place] [address] 2024-02-08 20:38:00 2024-02-08 21:40:00 Emergency X KEISHA DAVENPORT [facility] ERT [id number] [facility] 2024-02-08 20:38:00 2024-02-08 21:40:00 Emergency Keisha Davenport [facility] 1.2.840.114 350.1.13.10 4.2.7.2.686 [id number] [facility] 2024-02-08 14:08:00 2024-02-08 17:06:00 Emergency Christina Villarreal [facility] 1.2.840.114 350.1.13.10 4.2.7.2.686 [id number] [facility] 2024-01-14 04:46:00 2024-01-14 06:23:00 Emergency X TERESSA JAC [facility] ERT [id number] [facility] 2024-01-14 04:46:00 2024-01-14 06:23:00 Emergency Jac Navarro [facility] 1.2.840.114 350.1.13.10 4.2.7.2.686 [id number] [facility] 2023-12-22 21:51:00 2023-12-22 23:13:00 Emergency X TREV ROWERADHA [facility] ERT [id number] [facility] 2023-12-22 21:51:00 2023-12-22 23:13:00 Emergency Sullyroseline Cailin [facility] 1.2.840.114 350.1.13.10 4.2.7.2.686 [id number] [facility] 2023-12-21 19:36:00 2023-12-21 21:52:00 Emergency X QUENTIN MACIEL [facility] ERT [id number] [facility] 2023-12-21 19:36:00 2023-12-21 21:52:00 Emergency Quentin Maciel [facility] 1.2.840.114 350.1.13.10 4.2.7.2.686 [id number] [facility] 2023-11-10 19:29:00 2023-11-10 20:14:00 Emergency X CHRISTY HOLLIDAY [facility] ERT [id number] [facility] 2023-11-10 19:29:00 2023-11-10 20:14:00 Emergency Christy Holliday [facility] 1..840.114 350.1.13.10 4.2.7.2.686 [id number] [facility] 2023-10-27 00:49:00 2023-10-27 01:41:00 Emergency X TERESSAJAC [facility] ERT [id number] [facility] 2023-10-27 00:49:00 2023-10-27 01:41:00 Emergency Jac Navarro [facility] 1..840.114 350.1.13.10 4.2.7.2.686 [id number] [facility] 2023-07-15 00:00:00 2023-07-15 00:00:00 Outpatient YAMIL, DARIEN BECERRA [id number] Maria Elena [facility] 2023-06-16 11:30:00 2023-06-16 11:30:00 Outpatient DARIEN LOBO [id number] Maria Elena [facility] 2023-05-18 00:00:00 2023-05-18 00:00:00 Outpatient MARIA ELENA CHAN [id number] Maria Elena [facility] 2022-10-14 10:07:00 2022-10-14 14:39:00 Emergency X QUENTIN MACIEL [facility] ERT [id number] [facility] 2022-10-14 10:07:00 2022-10-14 14:39:00 Emergency Quentin Maciel [facility] 1..840.114 350.1.13.10 4.2.7.2.686 [id number] [facility] 2022-03-12 05:15:00 2022-03-12 06:41:00 Emergency X CHRISTY HOLLIDAY [facility] ERT [id number] [facility] 2022-03-12 05:15:00 2022-03-12 06:41:00 Emergency Christy Holliday [facility] 1.2.840.114 350.1.13.10 4.2.7.2.686 [id number] [facility] 2022-02-20 04:17:00 2022-02-20 07:16:00 Emergency X CHRISTY HOLLIDAY [facility] ERT [id number] [facility] 2022-02-20 04:17:00 2022-02-20 07:16:00 Emergency Christy Holliday [facility] 1.2.840.114 350.1.13.10 4.2.7.2.686 [id number] [facility] 2021-02-03 11:10:00 2021-02-03 11:10:00 Outpatient R DENISE SUNG [facility] [id number] [facility] 2021-01-13 11:20:00 2021-01-13 11:20:00 Outpatient [facility] [id number] [facility] 2020-11-10 08:20:00 2020-11-10 08:20:00 Outpatient R KARLEY ADAMS [facility] [id number] [facility] Results Test Description Test Time Test Comments Results Result Co mments Source [facility] WITH [id number] 18:19:05* Test Item Value Reference Range Interpretation [...] 33.2 g/dL 31.2-35.0 RDW-SD (test code = 51286-9) 53.9 fL 38.5-51.6 H RDW-CV (test code = 788-0) 15.2 % 12.1-15.4 PLT (test code = 777-3) 271 150-328 No platelet clum p seen on the smear MPV (test code = 89984-0) 10.1 fL 9.8-13.0 IPF % (test code = 0615334020) 4.2 % 1.2-10.7 Platelet count measured by fluorescence method. NRBC/100 WBC (test code = 9785450723) 0.0 0.0-10.0 NRBC x10^3 (test code = 2438092533) See_Comment [Automated [employer] ge] The system which generated this result transmitted reference range: 10*3/?L. The reference range was not used to interpret this result as normal/abnormal. GRAN MAT (NEUT) % (test code = 770-8) 74.5 % IMM GRAN % (test code = [id number]) 1.70 % LYMPH % (test code = 736-9) 12.8 % MONO % (test code = 5905-5) 10.4 % EOS % (test code = 713-8) 0.3 % BASO % (test code = 706-2) 0.3 % GRAN MAT x10^3(ANC) (test code = 8012392624) 10.27 10*3/uL 1.99-6.95 H IMM GRAN x10^3 (test code = 1268622465) 0.23 10*3/uL 0.00-0.06 H LYMPH x10^3 (test code = 731-0) 1.77 10*3/uL 1.09-3.23 MONO x10^3 (test code = 742-7) 1.43 10*3/uL 0.36-1.02 H EOS x10^3 (test code = 711-2) 0.04 10*3/uL 0.06-0.53 L BASO x10^3 (test code = 704-7) 0.04 10*3/uL 0.01-0.09 ELLIPTO/OVAL (test code = 19036-5) 2+ See_Comment A [Automated [employer] ge] The system which generated this result transmitted reference range: (none). The reference range was not used to interpret this result as normal/abnormal. POLYCHROMASIA (test code = 98689-2) 2+ See_Comment [Automated [employer]ver[employer] ge] The system which generated this result transmitted reference range: 2+. The reference range was not used to interpret this result as normal/abnormal. SPHEROCYTES (test code = 802-9) 1+ A TOXIC CHANGES (test code = 803-7) Present A PLT ESTIMATE (test code = 9317-9) Normal Normal Lab Interpretation (test code = 39514-3) [facility]normal [facility]TROP[facility] [id number] 17:49:42* Test Item Value Reference Range Interpretation Comme nts TROPONIN I (test code = 3247396907) 0.004 ng/mL <=0.034 LOUISE (test code = [...] of biotin. Lab Interpretation (test code = 10698-7) Normal [facility] HospitalN-TERMINAL LWQ-NWP7535-13-14 17:47:05* Test Item Value Reference Range Interpretation Comme nts NT-proBNP (test code = 02510-5) 125 pg/mL <=125 Lab Interpretation (test cod e = 35334-7) Normal [facility] HospitalETHANOL2024-09-14 17:39:20 ALCOHOL<10mg/dL07/23/2024 12:39 PM [facility]<10 Ayznmjsd23-399 Toxic>100 Depression of STEWARDING SUPERVISOR>400 Fatalities ReportedUnHarris Health System Lyn[facility]. Johnson HospitalCOM. METABOLIC PANEL (16832)2024-07-23 17:38:03* Test Item Value Reference Range Interpretation Comme nts NA (test code = 6602665306) 134 mmol/L 135-145 L K (test code = 1341499122) 3.8 mmol/L 3.5-5.0 CL (test code = 0097145020) 98 mmol/L 98-108 CO2 TOTAL (test code = 5428203510) 22 mmol/L 23-31 L AGAP (test code = 6060421097) 14 2-16 BUN (test code = 7832673894) 14 mg/dL 7-23 GLUCOSE (test code = 2640458496) 110 mg/dL 70-110 CREATININE (test code = 2160-0) 0.54 mg/dL 0.60-1.25 L TOTAL BILI (test code = 2097953577) 1.1 mg/dL 0.1-1.1 CALCIUM (test code = 4510366175) 9.4 mg/dL 8.6-10.6 T PROTEIN (test code = 6582056161) 7.8 g/dL 6.3-8.2 ALBUMIN (test code = 7219107696) 4.9 g/dL 3.5-5.0 ALK PHOS (test code = 0172899756) 75 U/L 34-122 ALTv (test code = 1742-6) 21 U/L 5-50 AST(SGOT) (test code = 3069606439) 30 U/L 13-40 eGFR (test code = 14514-4) 117.0 mL/min/1.73m2 CKD-EPI eGFR (2020). Assuming creatinine has been stable day-to-day for at least three months, the eGFR indicates Category G1 (>= 90 mL/min/1.73 m2) Lab Interpretation (test code = 70940-6) Abnormal [facility] HospitalLIPASE2024-[facility]-14 17:38:03* Test Item Value Reference Range Interpretation Comme nts LIPASE (test code = 7960303520) 48 U/L 0-220 Lab Interpretation (test cod e = 10276-6) Normal [facility] HospitalCT THORAX WO [id number] 13:12:40 PROCEDURE: CT CHEST WITHOUT CONTRAST - [...] lesions are detected.The soft tissues appear normal. [facility] HospitalProcalcitonin2024-09-10 07:32:10* Test Item Value Reference Range Interpretation Comme [facility] Procalcitonin (test code = 4279372711) 0.02 ng/mL <=0.07 LOUISE (test code = [...] lung abscess/empyema. For further information please refer to:[email or web address] Lab Interpretation (test code = 46485-3) Normal [facility] HospitalLanvic Acid Whole Dowle9702-76-80 16:01:14* Test Item Value Reference Range Interpretation Comme nts LACTIC ACID (test code = 8334148089) 1.87 mmol/L 0.50-2.20 Lab Interpretation (test cod e = 85487-3) Normal [facility] HospitalLanvic Acid Whole Bgdyv3440-77-27 13:12:25* Test Item Value Reference Range Interpretation Comme nts LACTIC ACID (test code = 8955005338) 6.23 mmol/L 0.50-2.20 H Lab Interpretation (test cod e = 24520-2) Abnormal [facility]. METABOLIC PANEL (16961)2024-07-18 12:56:44* Test Item Value Reference Range Interpretation Comme nts NA (test code = 1850981671) 140 mmol/L 135-145 K (test code = 4222756067) 4.1 mmol/L 3.5-5.0 CL (test code = 1082854825) 102 mmol/L 98-108 CO2 TOTAL (test code = 5450160305) 20 mmol/L 23-31 L AGAP (test code = 2113470378) 18 2-16 H BUN (test code = 4120153133) 10 mg/dL 7-23 GLUCOSE (test code = 2710734006) 123 mg/dL 70-110 H CREATININE (test code = 2160-0) 0.59 mg/dL 0.60-1.25 L TOTAL BILI (test code = 0146254446) 0.6 mg/dL 0.1-1.1 CALCIUM (test code = 6159784688) 9.1 mg/dL 8.6-10.6 T PROTEIN (test code = 5847113308) 7.8 g/dL 6.3-8.2 ALBUMIN (test code = 9498042883) 4.9 g/dL 3.5-5.0 ALK PHOS (test code = 2508887559) 75 U/L 34-122 ALTv (test code = 1742-6) 23 U/L 5-50 AST(SGOT) (test code = 5433691474) 34 U/L 13-40 eGFR (test code = 28059-0) 113.9 mL/min/1.73m2 CKD-EPI eGFR (2020). Assuming creatinine has been stable day-to-day for at least three months, the eGFR indicates Category G1 (>= 90 mL/min/1.73 m2) Lab Interpretation (test code = 24260-7) Abnormal [facility] HospitalCritical Krsn8722-56-07 12:12:28Shay Stinson MD ? ? 07/18/2024 ?8:56 [...] ? ?Care discussed with: admitting provider ? [facility] HospitalTRANMED HEALTH CANNONNOHEMY O9092-09-30 12:08:40* Test Item Value Reference Range Interpretation Comme nts TROPONIN I (test code = 0026962021) 0.015 ng/mL <=0.034 LOUISE (test code = [...] of biotin. Lab Interpretation (test code = 00014-2) Normal [facility] HospitalN-TERMINAL NRX-RZG4344-79-09 12:01:41* Test Item Value Reference Range Interpretation Comme nts NT-proBNP (test code = 04305-4) 111 pg/mL <=125 Lab Interpretation (test cod e = 64710-6) Normal [facility] HospitalXR CHEST 1 [id number] 11:57:22ORDERING PHYSICIAN: ZACH MCGUIRE CLINICAL HISTORY: Shortness of breath TECHNIQUE: Frontal view of chest COMPARISON: 07/17/2024 FINDINGS: The cardiac silhouette is mildly enlarged, stable. ?Stable right lower lobepatchy infiltrate. There are no effusions. The left lung is clear. Osseous structures are normal.[facility] HospitalETHANOL2024-09-09 11:53:01* Test Item Value Reference Range Interpretation Comme nts ALCOHOL (test code = 1398221917) 91 mg/dL LOUISE (test code = LOUISE) <10 Dkcaoovh59-392 Toxic>100 Depression of STEWARDING SUPERVISOR>400 Fatalities Reported [facility] WITH HEUF1862-06-63 11:36:10* Test Item Value Reference Range Interpretation [...] 32.4 g/dL 31.2-35.0 RDW-SD (test code = 47893-4) 58.6 fL 38.5-51.6 H RDW-CV (test code = 788-0) 16.3 % 12.1-15.4 H PLT (test code = 777-3) 229 150-328 MPV (test code = 82595-8) 9.0 fL 9.8-13.0 L NRBC/100 WBC (test code = 8717147879) 0.0 0.0-10.0 NRBC x10^3 (test code = 9456913633) See_Comment [Automated message] The system which generated this result transmitted reference range: 10*3/?L. The reference range was not used to interpret this result as normal/abnormal. GRAN MAT (NEUT) % (test code = 770-8) 76.7 % IMM GRAN % (test code = 7393665301) 0.80 % LYMPH % (test code = 736-9) 15.8 % MONO % (test code = 5905-5) 6.6 % EOS % (test code = 713-8) 0.0 % BASO % (test code = 706-2) 0.1 % GRAN MAT x10^3(ANC) (test code = 0851987275) 11.29 10*3/uL 1.99-6.95 H IMM GRAN x10^3 (test code = 1121564833) 0.12 10*3/uL 0.00-0.06 H LYMPH x10^3 (test code = 731-0) 2.32 10*3/uL 1.09-3.23 MONO x10^3 (test code = 742-7) 0.97 10*3/uL 0.36-1.02 EOS x10^3 (test code = 711-2) 0.06-0.53 L BASO x10^3 (test code = 704-7) 0.01-0.09 Lab Interpretation (test code = 99044-3) Abnormal [facility] HospitalXR [facility] 1 [id number] 02:23:27EXAM: ?XR CHEST 1 VW HISTORY: ?dyspnea Ordering physician: BLU MCGUIRE COMPARISON: Chest x-ray from February 08, 2024. TECHNIQUE: Frontal chest x-ray. ? FINDINGS: Heart size is stable. Pulmonary vessels are normal. Mild infiltrate in theright lower lung is present. No pneumothorax or pleural effusion isdetected. Mediastinal contour is normal. No free air is discerned. There isno displaced rib fracture. ?[facility] HospitalCOMPREHENSIVE METABOLIC PANEL 2024-05-28 00:00:00* Test Item Value Reference Range Interpretation Comme nts GLUCOSE (test code = 2217) 145 MG/DL BUN (test code = 2208) 8 MG/DL CREATININE (test code = 2214) 0.71 MG/DL eGFR (2020 CKD-EPI) (test code = 74294) 108 ML/MIN/1.73 CALC BUN/CREAT (test code = [...] = 2219) 11 U/L Tunde Quiñonez TahirHEMOGLOBIN [id number] 00:00:00* Test Item Value Reference Range Interpretation Comme nts HEMOGLOBIN A1c (test code = 22499) 5.5 % Tunde Olamide TahirLIPID [id number] 00:00:00* Test Item Value Reference Range Interpretation Comme nts CHOLESTEROL (test code = 2210) 234 MG/DL TRIGLYCERIDES (test code = 2232) 176 MG/DL HDL CHOLESTEROL (test code = 2220) 80 MG/DL CALC LDL CHOL (test code = 2237) 125 MG/DL RISK RATIO LDL/HDL (test cod e = 2238) 1.56 RATIO Tunde Olamide TahirCBC W/AUTO [id number] 00:00:00* Test Item Value Reference Range Interpretation [...] ABS NUCLEATED RBCS (test cod e = 91163) 0.00 K/UL Tunde HaroHbldsiQmqarki4506-00-64 21:47:04* Test Item Value Reference Range Interpretation Comme nts ALCOHOL (test code = 5344163929) 329 mg/dL LOUISE (test code = LOUISE) <10 Wolsuxay18-019 Toxic>100 Depression of STEWARDING SUPERVISOR>400 Fatalities Reported [facility] HospitalAC Panel 20 + Lactic Dpka2770-72-19 20:52:47* Test Item Value Reference Range Interpretation Comme nts PH (test code = 2) 7.39 7.35-7.45 PCO2 (test code = 3992001782) 42 35-45 PO2 (test code = 6360787085) 76 80-100 L HCO3 (test code = 0083769646) 25 22-26 BE (test code = 7823937839) -0.1 -3.0-3.0 THB (test code = 3451979169) 14.3 g/dL 13.5-18.0 %O2HB (test code = 3427666814) 85.8 % 94.0-99.0 L %COHB ART (test code = 1744939019) 9.0 % 0.0-1.5 H %METHB ART (test code = 1399166456) 0.3 % 0.4-1.5 L VOL%O2 ART (test code = 9190642030) 17.3 % 15.0-23.0 NA (test code = 1096370765) 140 mmol/L 135-145 K+ (test code = 5451709663) 4.1 mmol/L 3.5-5.0 AC CA IONZ (test code = 6283076866) 4.50 mg/dL 4.50-5.30 GLUCOSE (test code = 9744411130) 105 mg/dL 70-110 LACTIC ACID (test code = 5607402339) 2.60 mmol/L 0.50-2.20 H Lab Interpretation (test cod e = 55318-6) Abnormal [facility] HospitalTroponin [id number] 20:34:14* Test Item Value Reference Range Interpretation Comme nts TROPONIN I (test code = 0806972566) 0.008 ng/mL <=0.034 LOUISE (test code = [...] of biotin. Lab Interpretation (test code = 61653-9) Normal [facility] HospitalN-Terminal Mzi-Lbx1496-90-01 20:31:35* Test Item Value Reference Range Interpretation Comme nts NT-proBNP (test code = 74514-5) 188 pg/mL <=125 LOUISE (test code = LOUISE) Result Indeterminate-Consid er causes of NT-proBNP elevation other than Heart failure such as acute coronary syndrome, pulmonary embolism, pulmonary hypertension, sepsis, stroke, and renal dysfunction. Lab Interpretation (test code = 37151-1) Abnormal [facility] HospitalComp. Metabolic Panel (00345)2024-02-08 20:21:10* Test Item Value Reference Range Interpretation Comme nts NA (test code = 1692623287) 135 mmol/L 135-145 K (test code = 6761303785) 4.5 mmol/L 3.5-5.0 CL (test code = 5066265347) 100 mmol/L 98-108 CO2 TOTAL (test code = 2128387225) 22 mmol/L 23-31 L AGAP (test code = 4235778911) 13 2-16 BUN (test code = 3450844058) 8 mg/dL 7-23 GLUCOSE (test code = 1064347666) 97 mg/dL 70-110 CREATININE (test code = 2160-0) 0.65 mg/dL 0.60-1.25 TOTAL BILI (test code = 3331089609) 0.4 mg/dL 0.1-1.1 CALCIUM (test code = 4347448894) 9.4 mg/dL 8.6-10.6 T PROTEIN (test code = 7646144963) 8.2 g/dL 6.3-8.2 ALBUMIN (test code = 5904017718) 4.7 g/dL 3.5-5.0 ALK PHOS (test code = 1287872806) 76 U/L 34-122 ALTv (test code = 1742-6) 33 U/L 5-50 AST(SGOT) (test code = 6052443030) 54 U/L 13-40 H eGFR (test code = 03684-7) 111.3 mL/min/1.73m2 CKD-EPI eGFR (2020). Assuming creatinine has been stable day-to-day for at least three months, the eGFR indicates Category G1 (>= 90 mL/min/1.73 m2) Lab Interpretation (test code = 96323-4) Abnormal [facility] HospitalMagnesium2024-04-01 20:21:10* Test Item Value Reference Range Interpretation Comme nts MAGNESIUM (test code = 6785129033) 2.1 mg/dL 1.7-2.4 Lab Interpretation (test cod e = 89194-1) Normal [facility]XR CHEST 1 [id number] 20:07:21EXAM: XR CHEST 1 VW COMPARISON: 01/14/2024 HISTORY: sob FINDINGS: Lungs: Slightly hyperexpanded lungswith subtle progression of interstitialprominence. Trace pleural effusions could be present. Heart/Mediastinum: Stable cardiomegaly. Bones and soft tissues: No osseous abnormality is visualized.[facility] Cbc with Oacg1558-05-70 20:04:26* Test Item Value Reference Range Interpretation [...] 33.8 g/dL 31.2-35.0 RDW-SD (test code = 03632-1) 50.5 fL 38.5-51.6 RDW-CV (test code = 788-0) 14.3 % 12.1-15.4 PLT (test code = 777-3) 206 150-328 MPV (test code = 80799-5) 9.1 fL 9.8-13.0 L NRBC/100 WBC (test code = 2416315357) 0.0 0.0-10.0 NRBC x10^3 (test code = 6337974136) See_Comment [Automated messa ge] The system which generated this result transmitted reference range: 10*3/?L. The reference range was not used to interpret this result as normal/abnormal. GRAN MAT (NEUT) % (test code = 770-8) 81.0 % IMM GRAN % (test code = 6623107139) 1.20 % LYMPH % (test code = 736-9) 10.9 % MONO % (test code = 5905-5) 6.8 % EOS % (test code = 713-8) 0.0 % BASO % (test code = 706-2) 0.1 % GRAN MAT x10^3(ANC) (test code = 4596571629) 9.31 10*3/uL 1.99-6.95 H IMM GRAN x10^3 (test code = 7554518027) 0.14 10*3/uL 0.00-0.06 H LYMPH x10^3 (test code = 731-0) 1.25 10*3/uL 1.09-3.23 MONO x10^3 (test code = 742-7) 0.78 10*3/uL 0.36-1.02 EOS x10^3 (test code = 711-2) 0.06-0.53 L BASO x10^3 (test code = 704-7) 0.01-0.09 Lab Interpretation (test code = 45103-5) Abnormal [facility] HospitalCOMP. METABOLIC PANEL (73297)2023-12-23 04:53:26* Test Item Value Reference Range Interpretation Comme nts NA (test code = 9211778219) 135 mmol/L 135-145 K (test code = 6162197461) 3.2 mmol/L 3.5-5.0 L CL (test code = 2874096954) 104 mmol/L 98-108 CO2 TOTAL (test code = 3084312231) 23 mmol/L 23-31 AGAP (test code = 1056794203) 8 2-16 BUN (test code = 3386093075) 11 mg/dL 7-23 GLUCOSE (test code = 4070420903) 82 mg/dL 70-110 CREATININE (test code = 2160-0) 0.64 mg/dL 0.60-1.25 TOTAL BILI (test code = 2873423639) 0.5 mg/dL 0.1-1.1 CALCIUM (test code = 6155730642) 8.8 mg/dL 8.6-10.6 T PROTEIN (test code = 0605834894) 6.7 g/dL 6.3-8.2 ALBUMIN (test code = 5444589966) 4.1 g/dL 3.5-5.0 ALK PHOS (test code = 7085162711) 46 U/L 34-122 ALTv (test code = 1742-6) 21 U/L 5-50 AST(SGOT) (test code = 3783841562) 43 U/L 13-40 H eGFR (test code = 31470-4) 111.8 mL/min/1.73m2 CKD-EPI eGFR (2020). Assuming creatinine has been stable day-to-day for at least three months, the eGFR indicates Category G1 (>= 90 mL/min/1.73 m2) Lab Interpretation (test code = 76765-2) Abnormal [facility] HospitalLIPASE2024-02-14 04:53:26* Test Item Value Reference Range Interpretation Comme nts LIPASE (test code = 8518292423) 105 U/L 0-220 Lab Interpretation (test cod e = 32487-0) Normal [facility] HospitalCB WITH [id number] 04:34:24* Test Item Value Reference Range Interpretation [...] 33.0 g/dL 31.2-35.0 RDW-SD (test code = 72551-3) 50.9 fL 38.5-51.6 RDW-CV (test code = 788-0) 13.7 % 12.1-15.4 PLT (test code = 777-3) 232 150-328 MPV (test code = 11288-7) 8.7 fL 9.8-13.0 L NRBC/100 WBC (test code = 8005331734) 0.0 0.0-10.0 NRBC x10^3 (test code = 6960379957) See_Comment [Automated messa ge] The system which generated this result transmitted reference range: 10*3/?L. The reference range was not used to interpret this result as normal/abnormal. GRAN MAT (NEUT) % (test code = 770-8) 58.8 % IMM GRAN % (test code = 6771348652) 0.90 % LYMPH % (test code = 736-9) 27.8 % MONO % (test code = 5905-5) 10.5 % EOS % (test code = 713-8) 1.3 % BASO % (test code = 706-2) 0.7 % GRAN MAT x10^3(ANC) (test code = 0834692699) 5.68 10*3/uL 1.99-6.95 IMM GRAN x10^3 (test code = 8182705189) 0.09 10*3/uL 0.00-0.06 H LYMPH x10^3 (test code = 731-0) 2.69 10*3/uL 1.09-3.23 MONO x10^3 (test code = 742-7) 1.02 10*3/uL 0.36-1.02 EOS x10^3 (test code = 711-2) 0.13 10*3/uL 0.06-0.53 BASO x10^3 (test code = 704-7) 0.07 10*3/uL 0.01-0.09 Lab Interpretation (test code = 39649-9) Abnormal [facility] HospitalCT ABDOMEN PELVIS W DNIITXHO6315-87-80 03:32:43Exam: CT Abdomen and Pelvis With Contrast, [...] acute osseous abnormality.Soft tissues: Small fat-containing inguinal hernias.[facility] HospitalEthanol2024-02-13 02:32:24* Test Item Value Reference Range Interpretation Comme nts ALCOHOL (test code = 4362591533) 117 mg/dL LOUISE (test code = LOUISE) <10 Dglfzwfc70-198 Toxic>100 Depression of STEWARDING SUPERVISOR>400 Fatalities Reported [facility]. Metabolic Panel (82663)2023-12-22 02:31:43* Test Item Value Reference Range Interpretation Comme nts NA (test code = 3394102857) 133 mmol/L 135-145 L K (test code = 8603873180) 3.3 mmol/L 3.5-5.0 L CL (test code = 6154653214) 102 mmol/L 98-108 CO2 TOTAL (test code = 0683178005) 25 mmol/L 23-31 AGAP (test code = 5433502463) 6 2-16 BUN (test code = 4779478578) 11 mg/dL 7-23 GLUCOSE (test code = 7510574522) 75 mg/dL 70-110 CREATININE (test code = 4661855354) 0.51 mg/dL 0.60-1.25 L TOTAL BILI (test code = 8369192977) 0.5 mg/dL 0.1-1.1 CALCIUM (test code = 5838817637) 8.9 mg/dL 8.6-10.6 T PROTEIN (test code = 4423800837) 7.2 g/dL 6.3-8.2 ALBUMIN (test code = 1926238739) 4.5 g/dL 3.5-5.0 ALK PHOS (test code = 8616797630) 46 U/L 34-122 ALTv (test code = 1742-6) 15 U/L 5-50 AST(SGOT) (test code = 4395336299) 24 U/L 13-40 eGFR (test code = 74253-7) 119.7 mL/min/1.73m2 CKD-EPI eGFR (2020). Assuming creatinine has been stable day-to-day for at least three months, the eGFR indicates Category G1 (>= 90 mL/min/1.73 m2) Lab Interpretation (test code = 66059-6) Abnormal [facility] HospitalLipase2024-02-13 02:31:43* Test Item Value Reference Range Interpretation Comme nts LIPASE (test code = 8439065067) 121 U/L 0-220 Lab Interpretation (test cod e = 25140-5) Normal [facility] HospitalProthrombin Time / [id number] 02:21:02* Test Item Value Reference Range Interpretation Comme nts PROTIME PATIENT (test code = 5964-2) 10.5 10.1-12.6 INR (test code = 6301-6) 0.9 Normal INR <1.1; Warfarin Therapeutic range 2.0 to 3.0 or 2.5 to 3.5, depending upon the indications. Lab Interpretation (test code = 61748-9) Normal [facility] HospitalCbc with Otoh9131-53-54 02:14:04* Test Item Value Reference Range Interpretation [...] 34.0 g/dL 31.2-35.0 RDW-SD (test code = 31970-6) 49.1 fL 38.5-51.6 RDW-CV (test code = 788-0) 13.5 % 12.1-15.4 PLT (test code = 777-3) 260 150-328 MPV (test code = 08568-0) 8.7 fL 9.8-13.0 L NRBC/100 WBC (test code = 7446034736) 0.0 0.0-10.0 NRBC x10^3 (test code = 2065052561) See_Comment [Automated messa ge] The system which generated this result transmitted reference range: 10*3/?L. The reference range was not used to interpret this result as normal/abnormal. GRAN MAT (NEUT) % (test code = 770-8) 64.3 % IMM GRAN % (test code = 1089668412) 0.90 % LYMPH % (test code = 736-9) 24.2 % MONO % (test code = 5905-5) 9.1 % EOS % (test code = 713-8) 0.7 % BASO % (test code = 706-2) 0.8 % GRAN MAT x10^3(ANC) (test code = 8198661127) 8.73 10*3/uL 1.99-6.95 H IMM GRAN x10^3 (test code = 1402236945) 0.12 10*3/uL 0.00-0.06 H LYMPH x10^3 (test code = 731-0) 3.28 10*3/uL 1.09-3.23 H MONO x10^3 (test code = 742-7) 1.23 10*3/uL 0.36-1.02 H EOS x10^3 (test code = 711-2) 0.10 10*3/uL 0.06-0.53 BASO x10^3 (test code = 704-7) 0.11 10*3/uL 0.01-0.09 H Lab Interpretation (test code = 97404-0) Abnormal [facility] [id number] 10:16:22* Test Item Value Reference Range Interpretation Comments TROPONIN I (test code = 5068124691) 0.007 ng/mL See_Comment [Automated message] The system [...] of biotin. Lab Interpretation (test code = 61968-6) Normal [facility] HospitalN-TERMINAL KYP-RFR9004-77-14 10:13:01* Test Item Value Reference Range Interpretation Comme nts NT-proBNP (test code = 3634145193) 52 pg/mL See_Comment [Automated message] The system which generated this result transmitted reference range: <=125. The reference range was not used to interpret this result as normal/abnormal. LOUISE (test code = LOUISE) Biotin has been reported to cause a negative bias, interpret results relative to patient's use of biotin. Lab Interpretation (test code = 54955-7) Normal [facility] HospitalCOMP. METABOLIC PANEL (02433)2022-02-20 10:04:02* Test Item Value Reference Range Interpretation Comme nts NA (test code = 2257038762) 137 mmol/L 135-145 K (test code = 9858640671) 3.6 mmol/L 3.5-5.0 CL (test code = 5119638716) 99 mmol/L 98-108 CO2 TOTAL (test code = 2565907374) 25 mmol/L 23-31 AGAP (test code = 4409203911) 2-16 BUN (test code = 1672040514) 6 mg/dL 7-23 L GLUCOSE (test code = 9783520277) 88 mg/dL 70-110 CREATININE (test code = 1576987533) 0.55 mg/dL 0.60-1.25 L TOTAL BILI (test code = 6519274814) 0.8 mg/dL 0.1-1.1 CALCIUM (test code = 1687058345) 8.9 mg/dL 8.6-10.6 T PROTEIN (test code = 6545888612) 7.5 g/dL 6.3-8.2 ALBUMIN (test code = 4839381619) 4.8 g/dL 3.5-5.0 ALK PHOS (test code = 4582693862) 113 U/L 34-122 ALTv (test code = 1742-6) 84 U/L 5-50 H AST(SGOT) (test code = 6043525895) 107 U/L 13-40 H eGFR (test code = 3112833112) mL/min/1.73m2 LOUISE (test code = LOUISE) Association [...] imaging tests). Lab Interpretation (test code = 12981-0) Abnormal [facility] HospitalLIPASE, [id number] 10:03:21* Test Item Value Reference Range Interpretation Comme nts LIPASE (test code = 6221567963) 193 U/L 0-220 Lab Interpretation (test cod e = 85885-9) Normal [facility] HospitalCB WITH OETF7915-33-37 09:39:17* Test Item Value Reference Range Interpretation [...] g/dL 31.2-35.0 H RDW-SD (test code = 33787-2) 44.4 fL 38.5-51.6 RDW-CV (test code = 788-0) 11.9 % 12.1-15.4 L PLT (test code = 777-3) See_Comment [Automated messa ge] The system which generated this result transmitted reference range: 150 - 328 10*3/?L. The reference range was not used to interpret this result as normal/abnormal. MPV (test code = 26027-1) 9.2 fL 9.8-13.0 L NRBC/100 WBC (test code = 8191185344) See_Comment [Automated Moments.me ssage] The system which generated this result transmitted reference range: 0.0 - 10.0 /100 WBCs. The reference range was not used to interpret this result as normal/abnormal. NRBC x10^3 (test code = 8216130438) <0.01 See_Comment [Automated messa ge] The system which generated this result transmitted reference range: 10*3/?L. The reference range was not used to interpret this result as normal/abnormal. GRAN MAT (NEUT) % (test code = 770-8) 69.9 % IMM GRAN % (test code = 9612393947) 1.50 % LYMPH % (test code = 736-9) 18.9 % MONO % (test code = 5905-5) 7.0 % EOS % (test code = 713-8) 1.9 % BASO % (test code = 706-2) 0.8 % GRAN MAT x10^3(ANC) (test code = 9361498121) 7.15 10*3/uL 1.99-6.95 H IMM GRAN x10^3 (test code = 0217428533) 0.15 10*3/uL 0.00-0.06 H LYMPH x10^3 (test code = 731-0) 1.93 10*3/uL 1.09-3.23 MONO x10^3 (test code = 742-7) 0.72 10*3/uL 0.36-1.02 EOS x10^3 (test code = 711-2) 0.19 10*3/uL 0.06-0.53 BASO x10^3 (test code = 704-7) 0.08 10*3/uL 0.01-0.09 Lab Interpretation (test code = 18591-7) Abnormal [facility] History and Physical Notes Date/Time Note [...] during that time he also went to green party with some friends and did cocaine [...] coronary calcifications. Preliminary Report Dictated by Resident: Manijt Aleman XR CHEST 1 VW Result Date: 07/18/2024 ORDERING PHYSICIAN: LBU MCGUIRE CLINICAL HISTORY: Shortness of breath TECHNIQUE: [...] full understanding, Time discussed 3 minutes [place] [employer] was verified Disposition: Admit ICU [facility]"
[2024-10-25] MEDS ORDERED: ONDANSETRON 4 MG/2 ML VIAL ONE (02:10)
[2024-10-25] MEDS ORDERED: ALBUTEROL 2.5 MG/3 ML NEB SOL ONE ×2 (02:10→03:51)
[2024-10-25] MEDS ORDERED: METHYLPREDNISOLONE 125 MG INJ ONE (02:10)
[2024-10-25] MEDS ORDERED: LORazepam 2 MG/ML VIAL ONE (02:11)
[2024-10-25] MEDS ORDERED: FUROSEMIDE 40 MG/4 ML VIAL ONE (02:13)
[2024-10-25] MEDS ORDERED: methocarbamoL 750 MG TAB ONE (02:13)
[2024-10-25] MEDS ORDERED: KETOROLAC 30 MG/ML INJ ONE (02:13)
[2024-10-25 02:20] LABS: D-Dimer 0.804 FEUug/mL (0-0.500); PT Prothrombin Time 9.8 SECONDS (9.4-12.5); Protime INR 0.87
[2024-10-25 02:29] LABS: ALT/SGPT 20 U/L (16-61); AST/SGOT 15 U/L (15-37); Albumin 3.7 g/dL (3.4-5.0); Albumin/Globulin Ratio 1.2 (1.1-1.8); Alkaline Phosphatase 50 U/L (45-117); Anion Gap 11.8 mEq/L (5.0-15.0); BUN Blood Urea Nitrogen 7 mg/dL (7-18); Bicarbonate 22 mEq/L (21-32); Bilirubin Total 0.2 mg/dL (0.2-1.0); Creatine Phosphokinase 79 U/L (39-308); Globulin 3.2 g/dL (2.3-3.5); Glomerular Filtration Rate 111 ml/min (=/>90); Glucose Level 118 mg/dL (74-106); Lipase 20 U/L (13-75); Magnesium 2.2 mg/dL (1.6-2.4); NT PRO-BNP 478 pg/mL (<125); Potassium 3.8 mEq/L (3.5-5.1); Protein, Total 6.9 g/dL (6.4-8.2); Sodium Level 136 mEq/L (136-145); Troponin High Sensitivity 7.5 pg/mL (<58.9)
[2024-10-25 02:35] LABS: Bilirubin Direct < 0.2 mg/dL (0-0.2)
[2024-10-25 02:44] LABS: Absolute Basophils 0.1 K/uL (0-0.5); Absolute Lymphocytes (CBC) 1.7 K/uL (0.7-4.9); Absolute Monocytes 1.2 K/uL (0.1-1.3); Absolute Neutrophil 13.6 K/uL (1.8-8.0); Basophils % 0.6 % (0-1.3); Eosinophils % 0.1 % (0-4.4); Hematocrit 34.8 % (39.6-49.0); Hemoglobin 11.2 g/dL (13.6-17.9); Lymphocytes % 10.3 % (15.3-44.8); MCH 32.4 pg (27.0-35.0); MCHC 32.2 g/dL (32.0-36.0); MCV 100.5 fL (80-100); MPV 7.1 fL (7.6-11.3); Monocytes % 7.3 % (3.3-12.3); Neutrophils % 81.7 % (41.7-73.7); Platelets 266 thou/uL (152-406); RBC Red Blood Cell Count 3.47 M/uL (4.33-5.43); Red Cell Distribution Width 17.8 % (12.1-15.2)
[2024-10-25] MEDS ORDERED: IPRATROPIUM BROM 0.5MG/2.5ML ONE (03:51)
[2024-10-25] MEDS ORDERED: CEFTRIAXONE 1000 MG/VIAL ONE (03:55)
--- NOTE | 2024-10-25 04:01 | EDPHYS ---
Physician Documentation [facility] Name: Randy Briones Age: 54 yrs Sex: Male : 1970 Arrival Date: 10/25/2024 Time: 01:16 Bed 2 Private MD: ED Physician Jose Crews HPI: 10/25 01:40 This 54 yrs old Male presents to ER via Wheelchair with complaints of COPD sp4 Exacerbation. 03:50 Very pleasant 64-year-old male with history of alcohol abuse and history of COPD sp4 presents with acute alcohol intoxication and shortness of breath. Patient also complaining of moderate to severe lower back pain. Patient was admitted here 10/24/2024 but discharged on the same date. Patient's medications include spironolactone 25 daily, multivitamin daily, albuterol as needed, budesonide formoterol, ipratropium as needed, lorazepam 0.5 mg as needed, tiotropium bromide Spiriva, Spiriva 2 puffs inhaled daily , prednisone 10 mg p.o. daily, amlodipine 5 mg p.o. daily, Protonix 40 mg p.o. every 12 hours, sucralfate 1 g before meals and at bedtime, thiamine 10 mg p.o. daily, hydrocodone 10 as needed every 6 hours,. Historical: - Allergies: 01:32 Lisinopril; ha1 - PMHx: 01:32 Alcoholism; COPD; Hepatitis B (Hypertension); home 02 3LNC PRN; Hypertension; ha1 Osteoporosis; - PSHx: 01:32 Amputation of left index finger; ha1 - Immunization history:: Adult Immunizations unknown. - Infectious Disease History:: Denies. - Social history:: Smoking status: Patient reports the use of cigarette tobacco products, smokes one pack cigarettes per day. - Family history:: not pertinent. ROS: 03:57 Constitutional: Negative for fever, chills, and weight loss, positive for shortness of sp4 breath positive for alcohol intoxication positive for lower back pain 03:57 All other systems are negative, Exam: 03:57 Constitutional: This is a well developed, well nourished patient who is awake, appears sp4 intoxicated, moderate distress secondary to dyspnea, ill-appearing but nontoxic Head/Face: Normocephalic, atraumatic. There is moderate facial plethora. Eyes: Pupils equal round and reactive to light, extra-ocular motions intact. Lids and lashes normal. Conjunctiva and sclera are not injected. Cornea within normal limits. Periorbital areas with no swelling, redness, or edema. ENT: Nares patent. No nasal discharge, no septal abnormalities noted. Tympanic membranes are normal and external auditory canals are clear. Oropharynx with no redness, swelling, or masses, exudates, or evidence of obstruction, uvula midline. Mucous membranes moist. Neck: Trachea midline, no thyromegaly or masses palpated, and no cervical lymphadenopathy. Supple, full range of motion without nuchal rigidity, or vertebral point tenderness. Chest/axilla: Normal chest wall appearance and motion. Nontender with no deformity. No lesions are appreciated. Cardiovascular: Regular rate and rhythm with a normal S1 and S2. No gallops, murmurs, or rubs. Normal PMI, no JVD. No pulse deficits. Respiratory: Lungs have equal breath sounds bilaterally, clear to auscultation and percussion. No rales, rhonchi , positive bilateral expiratory wheezing moderate in all lung lozano. Dyspnea and tachypnea Abdomen/GI: Soft, with normal bowel sounds. No distension or tympany. No guarding or rebound. No evidence of tenderness throughout. Back: No spinal tenderness. No costovertebral tenderness. Skin: Warm, dry with normal turgor. Normal color with no rashes, no lesions, and no evidence of cellulitis. MS/ Extremity: Pulses equal, no cyanosis. Neurovascular intact. Full, normal range of motion. Neuro: Awake and alert, GCS 15, oriented to person, place, time, and situation. Cranial nerves II-XII grossly intact. Motor strength 5/5 in all extremities. Sensory grossly intact. Psych: Awake, alert, with orientation to person, place and time. Exam is limited by moderate intoxication 03:57 ECG was reviewed by the Attending Physician. EKG at 0201, normal sinus rhythm rate 86, otherwise normal EKG. Vital Signs: 01:29 BP 144 / 101; Pulse 105; Resp 20 S; Temp 98.1(T); Pulse Ox 92% on R/A; Weight 79.38 kg; ha1 Height 5 ft. 7 in. ; 02:25 BP 116 / 97; Pulse 88; Resp 12; Temp 98.1; Pulse Ox 99% on 10 lpm Nebulizer Mask; Pain bm8 7/10; 03:23 BP 117 / 72; Pulse 94; Resp 12; Temp 98.1; Pulse Ox 95% on 3 lpm NC; Pain 0/10; bm8 04:24 BP 123 / 74; Pulse 100; Resp 17; Temp 98.1; Pulse Ox 98% on R/A; Pain 0/10; bm8 01:29 Body Mass Index 27.41 (79.38 kg, 170.18 cm) ha1 02:25 Pain Scale: Adult bm8 03:23 Pain Scale: Adult bm8 04:24 Pain Scale: Adult bm8 Shani Coma Score: 02:25 Eye Response: spontaneous(4). Motor Response: obeys commands(6). Verbal Response: bm8 oriented(5). Total: 15. 03:23 Eye Response: to voice(3). Motor Response: obeys commands(6). Verbal Response: bm8 oriented(5). Total: 14. 03:57 Eye Response: spontaneous(4). Motor Response: obeys commands(6). Verbal Response: sp4 oriented(5). Total: 15. 04:24 Eye Response: spontaneous(4). Motor Response: obeys commands(6). Verbal Response: bm8 oriented(5). Total: 15. MDM: 01:39 Medical Screening Exam initiated sp4 04:00 Differential diagnosis: Anxiety Reaction asthma, Bronchitis CHF exacerbation, Chronic sp4 Obstructive Pulmonary Disease Myocardial Infarction pneumonia. Antibiotic administration: Rocephin IV ordered . Data reviewed: vital signs, nurses notes, old medical records, lab test result(s), EKG, radiologic studies, plain films. ED course: Patient remains with wheezes and also oxygenation suboptimal oxygen. Patient stable for admission to internal medicine service with oxygen supplementation for COPD exacerbation.. 06:05 ED course: CLINICAL HISTORY: Chest pain. COMPARISON: XR Chest 10/23/2024. 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 There is patchy bibasilar airspace disease. Nuchal to exclude small pleural effusions. There is no pneumothorax. There are no acute osseous findings. IMPRESSION: Suspect bibasilar pneumonia. Electronically signed by: Satya Russell MD 10/25/2024 05:51. 10/25 01:38 Order name: BMP; Complete Time: 03:46 4 10/25 01:38 Order name: Blood Culture Adult (2) [facility] 10/25 01:38 Order name: CBC with Diff; Complete Time: 03:46 4 10/25 01:38 Order name: CPK; Complete Time: 03:46 [facility] 10/25 01:38 Order name: D-Dimer; Complete Time: 03:46 [facility] 10/25 01:38 Order name: Hepatic Function; Complete Time: 03:46 [facility] 10/25 01:38 Order name: Lipase; Complete Time: 03:46 [facility] 10/25 01:38 Order name: Magnesium; Complete Time: 03:46 [facility] 10/25 01:38 Order name: NT PRO-BNP; Complete Time: 03:46 [facility] 10/25 01:38 Order name: PT-INR; Complete Time: 03:46 [facility] 10/25 01:38 Order name: Ptt, Activated; Complete Time: 03:46 [facility] 10/25 01:38 Order name: Troponin HS; Complete Time: 03:46 [facility] 10/25 01:39 Order name: Alcohol Level; Complete Time: 03:46 4 10/25 05:29 Order name: Urinalysis w/ reflexes EDMS 10/25 05:29 Order name: CBC with Automated Diff EDMS 10/25 05:29 Order name: CBC with Automated Diff EDMS 10/25 05:29 Order name: Comprehensive Metabolic Panel EDMS 10/25 05:29 Order name: Comprehensive Metabolic Panel EDMS 10/25 05:29 Order name: Magnesium EDMS 10/25 05:29 Order name: Magnesium EDMS 10/25 05:29 Order name: Phosphorus EDMS 10/25 05:29 Order name: Phosphorus EDMS 10/25 03:47 Order name: Chest Single View XRAY [facility] 10/25 01:38 Order name: Cardiac monitoring; Complete Time: 02:09 [facility] 10/25 01:38 Order name: EKG - Nurse/Tech; Complete Time: 02:09 [facility] 10/25 01:38 Order name: IV Saline Lock; Complete Time: 02:25 [facility] 10/25 01:38 Order name: Labs collected and sent; Complete Time: 02:25 sp4 10/25 01:38 Order name: O2 Per Protocol; Complete Time: sp4 10/25 01:38 Order name: O2 Sat Monitoring; Complete Time: : sp4 EC:57 Rate is 86 beats/min. Rhythm is regular, Normal Sinus Rhythm. QRS Sebastian is Normal. MO sp4 interval is normal. QRS interval is normal. QT interval is normal. No Q waves. T waves are Normal. No ST changes noted. Clinical impression: No evidence of ischemia. Interpreted by me. Reviewed by me. Administered Medications: 02:20 Drug: Albuterol Inhalation 2.5 mg Inhalation every 20 minutes x3 Route: Inhalation; bm8 02:24 Drug: Furosemide IVP 40 mg IVP once; give over 2 minutes Route: IVP; Site: left bm8 antecubital; 03:06 Follow up: Response: No adverse reaction bm8 02:24 Drug: Ketorolac IVP 30 mg IVP once Route: IVP; Site: left antecubital; bm8 03:06 Follow up: Response: No adverse reaction bm8 02:24 Drug: Ativan IVP 1 mg IVP once Route: IVP; Site: left antecubital; bm8 03:05 Follow up: Response: No adverse reaction bm8 02:24 Drug: Ondansetron IVP 4 mg IVP once; over 2 minutes Route: IVP; Site: left antecubital; bm8 03:05 Follow up: Response: No adverse reaction bm8 02:24 Drug: Methocarbamol PO 1500 mg PO once Route: PO; bm8 03:05 Follow up: Response: No adverse reaction bm8 02:25 Drug: MethylPrednisoLONE IVP 125 mg IVP once Route: IVP; Site: left antecubital; bm8 03:06 Follow up: Response: No adverse reaction bm8 02:40 Drug: Albuterol Inhalation 2.5 mg Inhalation every 20 minutes x3 Route: Inhalation; bm8 03:06 Drug: Albuterol Inhalation 2.5 mg Inhalation every 20 minutes x3 Route: Inhalation; bm8 03:26 Follow up: Response: No adverse reaction bm8 03:53 Drug: Ipratropium Inhalation Aerosol 0.5 mg Inhalation once Route: Inhalation; bm8 04:25 Follow up: Response: No adverse reaction bm8 03:54 Drug: Rocephin - Rocephin (cefTRIAXone) IVPB 1 grams IVPB once over 30 mins; (mix in 50 bm8 mL NS) Route: IVPB; Infused Over: 30 mins; Site: left antecubital; 04:04 Follow up: Response: No adverse reaction; IV Status: Completed infusion bm8 03:54 Drug: Albuterol Inhalation 2.5 mg Inhalation once Route: Inhalation; bm8 04:26 Follow up: Response: No adverse reaction bm8 04:04 Drug: Thiamine IV 100 mg IV at bolus once Route: IV; Rate: bolus; Site: left bm8 antecubital; 04:25 Follow up: Response: No adverse reaction; IV Status: Completed infusion; IV Intake: [id number] 04:26 Not Given (Other Intervention Used): morphineor iv 4 mg IVP once over 4 mins bm8 Disposition Summary: 10/25/24 04:00 Hospitalization Ordered Notes: Hospitalization Status: Observation sp4 Provider: Jacob Starr sp4 Condition: Stable sp4 Problem: new sp4 Symptoms: have improved sp4 Bed/Room Type: Standard sp4 Location: [facility] ER HOLD(10/25/24 04:18) rv1 Room Assignment: ERHOLD-(10/25/24 04:18) rv1 Diagnosis - COPD/ Chronic obstructive pulmonary disease with (acute) exacerbation sp4 - Acute alcohol intoxication, acute exacerbation of chronic lower back pain. sp4 - Alcohol dependence with intoxication, unspecified sp4 Forms: - Medication Reconciliation Form sp4 - SBAR form sp4 - Leadership Thank You Letter sp4 Signatures: Dispatcher [employer] EDMS Lauren Bailey RN RN ha1 Sherin Mitchell rv1 Jose Crews MD MD sp4 Paul Monteiro RN RN bm8 Corrections: (The following items were deleted from the chart) 01:39 01:39 BASIC METABOLIC PANEL+C.LAB.BRZ ordered. EDMS EDMS 01:39 01:39 BLOOD CULTURE*+BA.LAB.BRZ ordered. EDMS EDMS 01:39 01:39 CBC+H.LAB.BRZ ordered. EDMS EDMS 01:39 01:39 CREATINE PHOSPHOKINASE+C.LAB.BRZ ordered. EDMS EDMS 01:39 01:39 D-DIMER+COAG.LAB.BRZ ordered. EDMS EDMS 01:39 01:39 HEPATIC FUNCTION+C.LAB.BRZ ordered. EDMS EDMS 01:39 01:39 LIPASE+C.LAB.BRZ ordered. EDMS EDMS 01:39 01:39 MAGNESIUM+C.LAB.BRZ ordered. EDMS EDMS 01:39 01:39 PROBNP+C.LAB.BRZ ordered. EDMS EDMS 01:39 01:39 PROTIME (+INR)+COAG.LAB.BRZ ordered. EDMS EDMS 01:39 01:39 PTT, ACTIVATED+COAG.LAB.BRZ ordered. EDMS EDMS 01:39 01:39 Troponin High Sensitivity+C.LAB.BRZ ordered. EDMS EDMS 03:48 03:48 Chest Single View+RAD.RAD.BRZ ordered. EDMS EDMS 04:18 04:00 Telemetry/MedSurg (observation) sp4 rv1 04:18 04:00 sp4 rv1
--- NOTE | 2024-10-25 04:01 | ER ---
Nurse's Notes [facility] Name: Randy Briones Age: 54 yrs Sex: Male : 1970 Arrival Date: 10/25/2024 Time: 01:16 Bed 2 Private MD: Diagnosis: COPD/ Chronic obstructive pulmonary disease with (acute) exacerbation;Acute alcohol intoxication, acute exacerbation of chronic lower back pain.;Alcohol dependence with intoxication, unspecified Presentation: 10/25 01:29 Chief complaint: Patient states: SUDDEN ONSET OF BACK PAIN , DIFFICULTY BREATHING. ha1 Coronavirus screen: Client denies travel out of the [place] in the last 14 days. Ebola Screen: No symptoms or risks identified at this time. Initial Sepsis Screen: Does the patient meet any 2 criteria? No. Patient's initial sepsis screen is negative. Does the patient have a suspected source of infection? No. Patient's initial sepsis screen is negative. Risk Assessment: Do you want to hurt yourself or someone else? Patient reports no desire to harm self or others. Onset of symptoms was October 25, 2024. 01:29 Method Of Arrival: Wheelchair ha1 01:29 Acuity: CANDACE 3 ha1 Historical: - Allergies: 01:32 Lisinopril; ha1 - PMHx: 01:32 Alcoholism; COPD; Hepatitis B (Hypertension); home 02 3LNC PRN; Hypertension; ha1 Osteoporosis; - PSHx: 01:32 Amputation of left index finger; ha1 - Immunization history:: Adult Immunizations unknown. - Infectious Disease History:: Denies. - Social history:: Smoking status: Patient reports the use of cigarette tobacco products, smokes one pack cigarettes per day. - Family history:: not pertinent. Screenin:25 [facility] ED Fall Risk Assessment (Adult) History of falling in the last 3 months, bm8 including since admission Yes- physiologic fall (2 pts) Confusion or Disorientation No (0 pts) Intoxicated or Sedated Yes (3 pts) Impaired Gait Yes (1 pt) Mobility Assist Device Used Yes (1 pt) Altered Elimination No (0 pt) Score/Fall Risk Level 3 or more points = High Risk Oriented to surroundings, Maintained a safe environment, Educated pt \T\ family on fall prevention, incl call for assistance when getting out of bed, Assessed \T\ reinforced patient's understanding of fall precautions, Hourly rounding (assess needs \T\ fall precautionary measures) done, Used ambulatory aids as needed (educated on \T\ assisted with), Used gait belt as appropriate Implemented a Fall Risk Plan of Care. Abuse screen: Denies threats or abuse. Nutritional screening: No deficits noted. Tuberculosis screening: No symptoms or risk factors identified. Assessment: 02:25 General: Appears in no apparent distress. comfortable, Behavior is cooperative, drowsy, bm8 Smells of alcohol. Pain: Complains of pain in back Pain currently is 10 out of 10 on a pain scale. Quality of pain is described as aching, crampy. Neuro: No deficits noted. Level of Consciousness is awake, alert, obeys commands, Oriented to person, place, time, situation, Appropriate for age. Cardiovascular: No deficits noted. Heart tones S1 S2 present Capillary refill < 3 seconds in bilateral fingers Patient's skin is warm and dry. Respiratory: Airway is patent Trachea midline Respiratory effort is even, unlabored, Respiratory pattern is regular, symmetrical, on 3 L NC Breath sounds with crackles bilaterally. in left lower lobe, right lower lobe, left posterior lower lobe, right posterior middle lobe and right posterior lower lobe the patient has moderate shortness of breath. GI: No signs and/or symptoms were reported involving the gastrointestinal system. : No signs and/or symptoms were reported regarding the genitourinary system. EENT: No signs and/or symptoms were reported regarding the EENT system. Derm: No signs and/or symptoms reported regarding the dermatologic system. Musculoskeletal: No signs and/or symptoms reported regarding the musculoskeletal system. 03:23 Reassessment: Patient appears in no apparent distress at this time. Patient and/or bm8 family updated on plan of care and expected duration. Pain level reassessed. pt is resting with eyes closed breathing is even unlabored on 3L NC with symmetrical rise and fall of chest, denies pain. Respiratory: Airway is patent Trachea midline Respiratory effort is even, unlabored, Respiratory pattern is regular, symmetrical, Breath sounds with rales bilaterally. the patient has moderate shortness of breath. 04:24 Reassessment: Patient appears in no apparent distress at this time. No changes from bm8 previously documented assessment. Patient and/or family updated on plan of care and expected duration. Pain level reassessed. Patient denies pain at this time. Patient states symptoms have improved. 07:49 Reassessment: Patient requested to leave AMA, form signed, IV removed and pressure ko1 dressing applied. Vital Signs: 01:29 BP 144 / 101; Pulse 105; Resp 20 S; Temp 98.1(T); Pulse Ox 92% on R/A; Weight 79.38 kg; ha1 Height 5 ft. 7 in. ; 02:25 BP 116 / 97; Pulse 88; Resp 12; Temp 98.1; Pulse Ox 99% on 10 lpm Nebulizer Mask; Pain bm8 7/10; 03:23 BP 117 / 72; Pulse 94; Resp 12; Temp 98.1; Pulse Ox 95% on 3 lpm NC; Pain 0/10; bm8 04:24 BP 123 / 74; Pulse 100; Resp 17; Temp 98.1; Pulse Ox 98% on R/A; Pain 0/10; bm8 01:29 Body Mass Index 27.41 (79.38 kg, 170.18 cm) ha1 02:25 Pain Scale: Adult bm8 03:23 Pain Scale: Adult bm8 04:24 Pain Scale: Adult bm8 [place] Coma Score: 02:25 Eye Response: spontaneous(4). Motor Response: obeys commands(6). Verbal Response: bm8 oriented(5). Total: 15. 03:23 Eye Response: to voice(3). Motor Response: obeys commands(6). Verbal Response: bm8 oriented(5). Total: 14. 03:57 Eye Response: spontaneous(4). Motor Response: obeys commands(6). Verbal Response: sp4 oriented(5). Total: 15. 04:24 Eye Response: spontaneous(4). Motor Response: obeys commands(6). Verbal Response: bm8 oriented(5). Total: 15. ED Course: 01:17 Patient arrived in ED. gm2 01:32 Triage completed. ha1 01:37 Jose Crews MD is Attending Physician. sp4 01:55 No provider procedures requiring assistance completed. Inserted saline lock: 20 gauge bm8 in left antecubital area, using aseptic technique. ,using aseptic technique. ultrasound guided Blood collected. Flushed with 10 mL NS. 01:55 Initial lab(s) drawn, by me, sent to lab. First set of blood cultures drawn by me. bm8 Oxygen administered via a nebulizer mask. Response to oxygen therapy: symptoms improved. 02:09 EKG done, by ED staff. vk 02:10 Second set of blood cultures drawn by me. bm8 02:25 Patient has correct armband on for positive identification. Bed in low position. Call bm8 light in reach. Side rails up X2. Adult w/ patient. Client placed on continuous cardiac and pulse oximetry monitoring. NIBP monitoring applied. court recording monitor on. Pulse ox on. NIBP on. Door closed. Noise minimized. Warm blanket given. Pillow given. Verbal reassurance given. Head of bed elevated. 02:42 Paul Monteiro, RN is Primary Nurse. bm8 04:00 Jacob Starr MD is Hospitalizing Provider. sp4 04:24 Patient admitted, IV remains in place. bm8 04:24 Provided Education on: need for admission. bm8 04:27 Arm band placed on right wrist. bm8 04:31 Chest Single View XRAY In Process Unspecified. EDMS Administered Medications: 02:20 Drug: Albuterol Inhalation 2.5 mg Inhalation every 20 minutes x3 Route: Inhalation; bm8 02:24 Drug: Furosemide IVP 40 mg IVP once; give over 2 minutes Route: IVP; Site: left bm8 antecubital; 03:06 Follow up: Response: No adverse reaction bm8 02:24 Drug: Ketorolac IVP 30 mg IVP once Route: IVP; Site: left antecubital; bm8 03:06 Follow up: Response: No adverse reaction bm8 02:24 Drug: Ativan IVP 1 mg IVP once Route: IVP; Site: left antecubital; bm8 03:05 Follow up: Response: No adverse reaction bm8 02:24 Drug: Ondansetron IVP 4 mg IVP once; over 2 minutes Route: IVP; Site: left antecubital; bm8 03:05 Follow up: Response: No adverse reaction bm8 02:24 Drug: Methocarbamol PO 1500 mg PO once Route: PO; bm8 03:05 Follow up: Response: No adverse reaction bm8 02:25 Drug: MethylPrednisoLONE IVP 125 mg IVP once Route: IVP; Site: left antecubital; bm8 03:06 Follow up: Response: No adverse reaction bm8 02:40 Drug: Albuterol Inhalation 2.5 mg Inhalation every 20 minutes x3 Route: Inhalation; bm8 03:06 Drug: Albuterol Inhalation 2.5 mg Inhalation every 20 minutes x3 Route: Inhalation; bm8 03:26 Follow up: Response: No adverse reaction bm8 03:53 Drug: Ipratropium Inhalation Aerosol 0.5 mg Inhalation once Route: Inhalation; bm8 04:25 Follow up: Response: No adverse reaction bm8 03:54 Drug: Rocephin - Rocephin (cefTRIAXone) IVPB 1 grams IVPB once over 30 mins; (mix in 50 bm8 mL NS) Route: IVPB; Infused Over: 30 mins; Site: left antecubital; 04:04 Follow up: Response: No adverse reaction; IV Status: Completed infusion bm8 03:54 Drug: Albuterol Inhalation 2.5 mg Inhalation once Route: Inhalation; bm8 04:26 Follow up: Response: No adverse reaction bm8 04:04 Drug: Thiamine IV 100 mg IV at bolus once Route: IV; Rate: bolus; Site: left bm8 antecubital; 04:25 Follow up: Response: No adverse reaction; IV Status: Completed infusion; IV Intake: [id number] 04:26 Not Given (Other Intervention Used): morphineor iv 4 mg IVP once over 4 mins bm8 Medication: 02:25 VIS not applicable for this client. bm8 Intake: 04:25 IV: 10ml; Total: 10ml. bm8 Outcome: 04:00 Decision to Hospitalize by Provider. sp4 04:24 Admitted to ER Hold. Please see [facility] for further documentation. bm8 04:24 Condition: stable 04:24 Instructed on the need for admit, Demonstrated understanding of instructions, follow-up care, 07:49 Patient left the ED. ko1 Signatures: Dispatcher [employer] EDMS Lauren Bailey RN RN ha1 Yen Pearson RN RN ko1 Jose Crews MD MD sp4 Bonnie Sylvester gm2 Kathi Jaquez Brad, RN RN bm8
[2024-10-25] MEDS ORDERED: THIAMINE 200 MG/2 ML INJ ONE (04:02)
[2024-10-25] MEDS ORDERED: ACETAMINOPHEN 325 MG TABLET PO PRN (05:24)
[2024-10-25] MEDS ORDERED: HYDROCODONE/APAP 10/325 TAB PO PRN (05:33)
[2024-10-25] MEDS ORDERED: LORAZEPAM 0.5 MG TABLET PO PRN (05:33)
--- NOTE | 2024-10-25 05:33 | P.HP ---
Certification for Inpatient Patient admitted to: Inpatient With expected LOS: >2 Midnights Practitioner: I am a practitioner with admitting privileges, knowledge of patient current condition, hospital course, and medical plan of care. Services: Services provided to patient in accordance with Admission requirements found in Title 42 Section 412.3 of the Code of Federal Regulations Patient History Date of Service: 10/26/24 Reason for admission: SOB History of Present Illness: 54-year-old male with history of alcohol abuse and history of COPD on home O23 L/min, chronic prednisone use , presents with acute alcohol intoxication and shortness of breath. Patient also complaining of moderate to severe lower back pain. Patient was admitted here 10/24/2024 but discharged on the same date. His past medical history includes Alcoholism; COPD; Hepatitis B (Hypertension); home 02 3LNC PRN; Hypertension, Osteoporosis; Patient was assessed in the ER and is admitted for further management - Allergies lisinopril Allergy (Verified 04/26/22 13:11) Shortness of breath BC powder Allergy (Mild, Uncoded 04/26/22 13:10) Hives Home medications list reviewed: Yes Home Medications: Spironolactone [Aldactone*] 25 mg PO DAILY 06/23/23 Multivit,Ther Iron,Ca,FA & Min [Centrum Tablet*] 1 tab PO DAILY #30 tab 12/02/23 Albuterol Neb [Proventil 0.083% Neb Soln] 2.5 mg NEB [id number] PRN 30 Days #1 box 04/07/24 Budesonide/Formoterol Fumarate [Symbicort 160-4.5 Mcg Inhaler] 2 puff IH DAILY 30 Days #1 inh 04/07/24 Ipratropium Neb [Atrovent*] 0.5 mg NEB [id number] PRN 30 Days #1 box 04/07/24 LORazepam [Ativan*] 0.5 mg PO BEDTIME PRN #20 tab 04/07/24 Tiotropium [employer] [Spiriva] 2 puff IH DAILY 30 Days #1 inh 04/07/24 predniSONE [Prednisone*] 10 mg PO DAILY 30 Days #30 tab 04/07/24 Amlodipine [Norvasc*] 5 mg PO DAILY #30 tab 04/24/24 Pantoprazole [Protonix Tab*] 40 mg PO Q12H #60 tab 04/24/24 Sucralfate [Carafate*] 1 gm PO ACHS #60 tab 04/24/24 Thiamine HCl [Vitamin B-1*] 100 mg PO DAILY #30 tab 04/24/24 Hydrocodone 10/APAP 325 [[place] 10/325*] 1 tab PO Q6H PRN #20 tab 10/24/24 - Past Medical/Surgical History Diabetic: No Past Medical History: Reviewed- Non-Contributory -: Hypertension -: COPD on chronic steroids/home O2 -: Tobacco abuse -: Alcohol abuse -: GERD -: Obesity -: BUD -: kidney stones Past Surgical History: Reviewed- Non-Contributory -: 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 - Family History Mother -: Diabetes, Cancer Notes: colon cancer Father -: Lung disease Notes: COPD - Social History Smoking Status: Never smoker Alcohol use: Yes CD- Drugs: Yes Caffeine use: Yes Review of Systems 10-point ROS is otherwise unremarkable Physical Examination - Vital Signs Temperature: 98.1 F Blood Pressure: 144/100 Pulse: 104 Respirations: 18 Pulse Ox (%): 94 - Physical Exam General: Alert, Mild distress HEENT: Atraumatic, Normocephalic Neck: Supple Respiratory: Normal air movement, Crackles/rales, Expiratory wheezes Cardiovascular: Regular rate/rhythm, Normal S1 S2 Capillary refill: <2 Seconds Gastrointestinal: Soft and benign, W/out hepatosplenomegaly Musculoskeletal: No clubbing Integumentary: No rashes, No breakdown Neurological: Other (Alert awake) Lymphatics: No axilla or inguinal lymphadenopathy - Studies Laboratory Data (last 24 hrs) 10/25/24 10/25/24 10/25/24 01:55 01:55 01:55 WBC 16.70 H Hgb 11.2 L Hct 34.8 L Plt Count 266 PT 9.8 INR 0.87 APTT 29.0 Sodium 136 Potassium 3.8 BUN 7 Creatinine 0.64 L Glucose 118 H Magnesium 2.2 Total Bilirubin 0.2 AST 15 ALT 20 Alkaline Phosphatase 50 Lipase 20 Assessment and Plan - Plan COPD exacerbation Acute hypoxic respiratory failure Medication and follow-up noncompliance Hypertension Alcohol abuse with impending DTs Chronic tobacco use Chronic steroid use Home O2 use Plan Will admit to inpatient Start DuoNebs Q4 for COPD exacerbation IV steroids Guaifenesin and Tessalon Perles for cough Oxygen supplementation, wean as tolerated Tobacco cessation advised High risk for alcohol delirium, start CIWA protocol Lovenox for DVT prophylax Full code on home oxygen 3 L by nasal cannula GI/DVT prophylaxis Advanced directive full code Discharge Plan: Home Plan to discharge in: 48 Hours - Advance Directives Does patient have a Living Will: No Does patient have a Durable POA for Healthcare: No - Code Status/Comfort Care Code Status: Full Code Time Spent Managing Pts Care (In Minutes): 48
[2024-10-25 05:50] VITALS: O2SAT 92; BMI 27.3
[2024-10-25] MEDS ORDERED: METHYLPREDNISOLONE 40 MG INJ ONE (05:54)
[2024-10-25] MEDS: PANTOPRAZOLE 40MG TABLET PO SCH (06:00)
[2024-10-25] MEDS: METHYLPREDNISOLONE 125 MG INJ IV SCH (06:00)
[2024-10-25] MEDS ORDERED: ALBUTEROL 2.5 MG/3 ML NEB SOL NEB SCH ×3 (06:00→13:00)
--- NOTE | 2024-10-25 06:05 | RAD REPORT ---
CLINICAL HISTORY: Chest pain. COMPARISON: XR Chest 10/23/2024. TECHNIQUE: XR CHEST 1 VIEW 10/25/2024 3:47 AM PROCESS INSPECTOR FINDINGS: The heart is enlarged. There is patchy bibasilar airspace disease. Nuchal to exclude small pleural ef fusions. There is no pneumothorax. There are no acute osseous findings. IMPRESSION: Suspect bibasilar pneumonia. Electronically signed by: Satya Russell MD 10/25/2024 05:51 AM PROCESS INSPECTOR RP Due to temporary technical issues with the [employer] reporting system, reports are being skyler d by the in-house radiologist without review as a courtesy to ensure prompt reporting the interpreting radiologist is fully responsible for the content of the report. Transcribed Date/Time: 10/25/2024 6:05 AM
[2024-10-25] MEDS ORDERED: IPRATROPIUM BROM 0.5MG/2.5ML NEB SCH (07:00)
[2024-10-25 07:56] VITALS: TEMP 98.1
[2024-10-25] MEDS ORDERED: ONDANSETRON 4 MG/2 ML VIAL IV PRN (08:00)
[2024-10-25] MEDS ORDERED: TIOTROPIUM 5 SPRAYS/INHALER IH SCH (09:00)
[2024-10-25] MEDS ORDERED: DULERA 200/5 (MOMETASONE/FORMOTEROL) INHALER IH SCH (09:00)
[2024-10-25] MEDS ORDERED: ENOXAPARIN 40 MG/0.4 ML SQ SCH (09:00)
[2024-10-25] MEDS ORDERED: HOME MED 1 EA UNK (Budesonide/Formoterol Fumarate [Symbicort 160-4.5 Mcg Inhaler] 2 PUFF) IH SCH (09:00)
[2024-10-25] MEDS ORDERED: THIAMINE HCL 100 MG TABLET PO SCH (09:00)
[2024-10-25] MEDS ORDERED: AMLODIPINE 5 MG TAB PO SCH (09:00)
[2024-10-25] MEDS ORDERED: ALBUTEROL 2.5 MG/3 ML NEB SOL NEB PRN (10:00)
[2024-10-26 00:12] VITALS: BP 144/100
--- NOTE | 2024-10-26 00:16 | P.DS ---
Admission Date: 10/25/24 Discharge Date: 10/26/24 Disposition: AMA-LEFT AGAINST MEDICAL ADVIC Discharge Condition: GOOD Reason for Admission: SOB Brief History of Present Illness: 54-year-old male with history of alcohol abuse and history of COPD on home O23 L/min, chronic prednisone use , presents with acute alcohol intoxication and shortness of breath. Patient also complaining of moderate to severe lower back pain. Patient was admitted here 10/24/2024 but discharged on the same date. His past medical history includes Alcoholism; COPD; Hepatitis B (Hypertension); home 02 3LNC PRN; Hypertension, Osteoporosis; Patient was assessed in the ER and is admitted for further management - Hospital Course: Left AMA Vital Signs/Physical Exam: Temp Pulse Resp BP Pulse Ox 98.1 F 104 H 18 144/100 H 94 10/26/24 00:13 10/26/24 00:13 10/26/24 00:13 10/26/24 00:13 10/26/24 00:13 General: Alert, Oriented x3 HEENT: Atraumatic, Normocephalic Neck: Supple Respiratory: Clear to auscultation bilaterally Cardiovascular: Regular rate/rhythm Capillary refill: <2 Seconds Gastrointestinal: Soft and benign, W/out hepatosplenomegaly Musculoskeletal: No clubbing Integumentary: No rashes Neurological: Normal strength at 5/5 x4 extr Laboratory Data at Discharge: WBC 16.70 thou/uL (4.3-10.9) H 10/25/24 01:55 Hgb 11.2 g/dL (13.6-17.9) L 10/25/24 01:55 Hct 34.8 % (39.6-49.0) L 10/25/24 01:55 Plt Count 266 thou/uL (152-406) 10/25/24 01:55 PT 9.8 SECONDS (9.4-12.5) 10/25/24 01:55 INR 0.87 10/25/24 01:55 APTT 29.0 SECONDS (24.3-36.9) 10/25/24 01:55 Sodium 136 mEq/L (136-145) 10/25/24 01:55 Potassium 3.8 mEq/L (3.5-5.1) 10/25/24 01:55 BUN 7 mg/dL (7-18) 10/25/24 01:55 Creatinine 0.64 mg/dL (0.70-1.30) L 10/25/24 01:55 Glucose 118 mg/dL (74-106) H 10/25/24 01:55 Magnesium 2.2 mg/dL (1.6-2.4) 10/25/24 01:55 Total Bilirubin 0.2 mg/dL (0.2-1.0) 10/25/24 01:55 AST 15 U/L (15-37) 10/25/24 01:55 ALT 20 U/L (16-61) 10/25/24 01:55 Alkaline Phosphatase 50 U/L (45-117) 10/25/24 01:55 Lipase 20 U/L (13-75) 10/25/24 01:55 Home Medications: Spironolactone [Aldactone*] 25 mg PO DAILY 06/23/23 Multivit,Ther Iron,Ca,FA & Min [Centrum Tablet*] 1 tab PO DAILY #30 tab 12/02/23 Albuterol Neb [Proventil 0.083% Neb Soln] 2.5 mg NEB [id number] PRN 30 Days #1 box 04/07/24 Budesonide/Formoterol Fumarate [Symbicort 160-4.5 Mcg Inhaler] 2 puff IH DAILY 30 Days #1 inh 04/07/24 Ipratropium Neb [Atrovent*] 0.5 mg NEB [id number] PRN 30 Days #1 box 04/07/24 LORazepam [Ativan*] 0.5 mg PO BEDTIME PRN #20 tab 04/07/24 Tiotropium [place] [Spiriva] 2 puff IH DAILY 30 Days #1 inh 04/07/24 predniSONE [Prednisone*] 10 mg PO DAILY 30 Days #30 tab 04/07/24 Amlodipine [Norvasc*] 5 mg PO DAILY #30 tab 04/24/24 Pantoprazole [Protonix Tab*] 40 mg PO Q12H #60 tab 04/24/24 Sucralfate [Carafate*] 1 gm PO ACHS #60 tab 04/24/24 Thiamine HCl [Vitamin B-1*] 100 mg PO DAILY #30 tab 04/24/24 Hydrocodone 10/APAP 325 [[place] 10/325*] 1 tab PO Q6H PRN #20 tab 10/24/24 Followup: Xenia AUSTIN,Adrianna Gamez DO [Primary Care Provider] - Time spent managing pt's care (in minutes): 38
--- NOTE | 2024-10-27 11:34 | EKG ---
Test Date: 2024-10-25 Test Time: 02:01:06 Pvc Monitor: MAURICIO MEASUREMENT RESULTS: Intervals: Rate: 86 FL: 142 QRSD: 110 QT: 378 QTc: 452 [place]: P: 61 FL: 142 QRS: 85 T: 68 INTERPRETIVE STATEMENTS: Normal sinus rhythm Incomplete right bundle branch block Borderline ECG Compared to ECG 10/23/2024 23:35:54 Incomplete right bundle-branch block now present Electronically Signed On 10-27-24 11:33:49 [employer] SALESPERSON by Roberto Woodson
== END 2024-10-25 07:40 | disposition left against medical advice (07) | DRG 190 ==
LOC: ER 01:16 → ERHOLD 05:24
PROVIDERS: ADMIT Family Medicine; ATTEND Internal Medicine
DX: J44.1 Chronic obstructive pulmonary disease with (acute) exacerbation (principal); J96.01 Acute respiratory failure with hypoxia; I10 Essential (primary) hypertension; K21.9 Gastro-esophageal reflux disease without esophagitis; M81.0 Age-related osteoporosis without current pathological fracture; F10.229 Alcohol dependence with intoxication, unspecified; F17.210 Nicotine dependence, cigarettes, uncomplicated; Z88.8 Allergy status to other drugs, medicaments and biological substances; Z79.52 Long term (current) use of systemic steroids; Z53.29 Procedure and treatment not carried out because of patient's decision for other reasons; Z89.022 Acquired absence of left finger(s); Z79.899 Other long term (current) drug therapy; Y90.7 Blood alcohol level of 200-239 mg/100 ml
CPT/HCPCS: 36415; 71045; 80048; 80076; 82077; 82550; 83690; 83735; 83880; 84484; 85025; 85379; 85610; 85730; 87040; 93005; 96365; 96375; 99285; J0696; J1940; J2405; J2919; J3411; J3535; J7613; J7644

== ENCOUNTER 2024-10-25 18:36 | Emergency (ER) | payer OTHER ==
[2012-06-09 17:20] VITALS: BP 136/71
--- OUTSIDE RECORDS SUMMARY | 2024-10-25 18:41 | XMS REPORT | Continuity of Care Document ---
Author Name Unknown Address [address] [facility] [address] [place] [address] [facility] Address [address] [facility] [address] [place] [address] Care Team Providers Care Analysis Intern Name Role Phone Juan Daniel [facility] Primary Care Physician YARY CAMP Attending Clinician Unavailable YARY CAMP Attending Clinician Unavailable Yary Camp NP Attending Clinician [phone] JULIEN MARKS Attending Clinician Unavailable Blu Mcguire MD Attending Clinician [phone] Shay Stinson MD Attending Clinician [phone] Julien Marks DO Attending Clinician [phone] BLU MCGUIRE Attending Clinician Unavailable BLU MCGUIRE Attending Clinician Unavailable WENDY BROWNLEE Attending Clinician UnaMYRNA Bernard Attending Clinician Unavailable DARIEN LOBO Attending Clinician Unavailable MINNA ORTA Attending Clinician Unavailab SHARATH Isbell Attending Clinician Unavailable TUNDE QUINTANILLA Attending Clinician Unavailable KEISHA DAVENPORT Attending Clinician Unauriah Davenport MD, Keisha Jackson Attending Clinician + Christina Victoria Attending Clinician [phone] JAC NAVARRO Attending Clinician Unavailable Jac Navarro MD Attending Clinician [phone] CAILIN ROWE Attending Clinician Unavailab QUENTIN Boothe Attending Clinician Unavailable Quentin Maciel DO Attending Clinician [phone] CHRISTY HOLLIDAY Attending Clinician Unavailable Christy Holliday MD Attending Clinician [phone] MARIA [facility] Attending Clinicia n Unavailable DENISE SUNG Attending Clinician Unavailable KARLEY ADAMS Attending Clinician Unavailable JULIEN MARKS Admitting Clinician Unavailable Julien Marks DO Admitting Clinician [phone] BLU MCGUIRE Admitting Clinician Unavailable JAC NAVARRO Admitting Clinician Unavailable QUENTIN MACIEL Admitting Clinician Unavailable CHRISTY HOLLIDAY Admitting Clinician Unavailable Payers Payer Name Policy Type Policy Number Effective Date Expirati on Date Source HIM [facility] O [id number] 2024 00:00:00 [facility] VINOD LEE COPAY FOCUS 9 [id number] 2024 00:00:00 [employer] [id number] 2023 00:00:00 [employer] 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 ON 9 [id number] 2023 00:00:00 Problems Condition Name Condition Details Condition Category Status Onset Date Resolution Date Last Treatment Date Treating Clinician Comments Source Community acquired pneumonia of right lower lobe of lung Community acquired pneumonia of right lower lobe of lung Disease Active 07-18 00:00: 00 [facility] Acute exacerbati on of chronic obstructiv e pulmonary disease (COPD) Acute exacerbati on of chronic obstructiv e pulmonary disease (COPD) Disease Active 03-24 00:00: 00 [facility] Obesity (BMI 30-39.9) Obesity (BMI 30-39.9) Disease Active 03-24 00:00: 00 [facility] Allergies, Adverse Reactions, Alerts Allergy Name Allergy Type Status Severity Reaction(s) Onset Date Inactive Date Treating Clinician Comments Source Lisinopr il Propensi ty to adverse reaction s Active Anaphylaxis 03-24 00:00: 00 [facility] LISINOPR [place] DRUG INGREDI Active Anaphylaxis 03-24 00:00: 00 [facility] Social History Social Habit Start Date Stop Date Quantity Comments Source History of tobacco use Smokes tobacco daily [facility] Alcoholic beverage intake 2024-07-23 00:00:00 2024-07-23 00:00:00 4.29 /d [facility] History of Social function 2024-07-19 00:00:00 2024-07-19 00:00:00 [facility] Tobacco use and exposure 2024-07-18 00:00:00 2024-07-18 00:00:00 User of smokeless tobacco [facility] Tobacco Comment 2024-07-18 00:00:00 2024-07-18 00:00:00 trying to quit [facility] Alcohol Comment 2024-07-18 00:00:00 2024-07-18 00:00:00 2 1/2 cases daily [facility] Alcohol intake 2024-02-08 00:00:00 2024-02-08 00:00:00 4.29 /d [facility] Exposure to SARS-CoV-2 (event) 2022-10-04 00:00:00 2022-10-14 10:25:00 Not sure [facility] Sex assigned at 1970 00:00:00 1970 00:00:00 [facility] Smoking Status Start Date Stop Date Source Smokes tobacco daily 2024-07-18 00:00:00 [facility] Medications Ordered Medication Name Filled Medication Name Start Date Stop Date Current Medication? Ordering Clinician Indication Dosage Frequency Signature (SIG) Comments Components Source ketorolac (TORADOL) injection 30 mg 07-23 19:30: 00 07-23 18:21 :00 No 30mg 30 mg, Slow IV Push, ONCE, 1 dose, On 07/23/24 at 1430, Routine [facility] pantoprazol e (PROTONIX) injection 40 mg 07-23 17:30: 00 07-23 17:03 :00 No 40mg 40 mg, Slow IV Push, ONCE, 1 dose, On 07/23/24 at 1230 [facility] ipratropium -albuteroL (DUONEB) 0.5 mg-3 mg(2.5 mg base)/3 mL nebulizer solution 3 mL 07-23 17:15: 00 07-23 17:26 :00 No 3mL 3 mL, Inhalation , ONCE NOW, 1 dose, On 07/23/24 at 1215, Routine [facility] methylpredn isolone sod succ (SOLU-MEDRO L) injection 125 mg 07-23 17:15: 00 07-23 17:01 :00 No 125mg 125 mg, Intravenou s, ONCE, 1 dose, On 07/23/24 at 1215, 2 mL [facility] NaCl 0.9% (NS) bolus infusion 1,000 mL 07-23 17:15: 00 07-23 17:30 :00 No 1000mL at 999 mL/hr, 1,000 mL, IV Infusion, ONCE, 1 dose, On 07/23/24 at 1215, LAURYN [facility] piperacilli n-tazobacta m (ZOSYN) 3.375 g in NaCl 0.9% (NS) 100 mL MINI-BAG 07-23 16:45: 00 07-23 17:40 :00 No 3.375g 3.375 g, IV Piggyback, ONCE, 1 dose, On 07/23/24 at 1145, Administer over 30 Minutes, 100 mL, Reason for Anti-Infec tive: Documented Infection, Documented Infection Site: Respirator y, Duration of Therapy: Once (ED) [facility] oxazepam (SERAX) capsule 15 mg 07-20 19:50: 52 07-21 19:59 :00 No 15mg 15 mg, Oral, Q12H TAPER, 2 doses, First dose on Thu07/20/24 at 1500, Last dose on Thu07/21/24 at 0300, [facility]ine [facility] levalbutero l (XOPENEX) nebulizer solution 0.63 mg 07-20 19:00: 00 Yes .63mg 0.63 mg, Inhalation , TID, First dose on Thu07/20/24 at 1400, Until Discontinu ed, [facility] spironolact one (ALDACTONE) tablet 25 mg 07-20 14:00: 00 Yes 25mg 25 mg, Oral, DAILY, First dose on Thu07/20/24 at 0900, Until Discontinu ed, [facility] Potassium Bicarb-Citr ic Acid (EFFER-K) effervescen t tablet 40 mEq 07-20 13:00: 00 07-21 12:59 :00 No 40meq 40 mEq, Oral, BID, 2 doses, First dose on Thu07/20/24 at 0800, Last dose on Thu07/20/24 at 2000, Routine [facility] amLODIPine (NORVASC) tablet 10 mg 07-19 22:30: 00 Yes 10mg 10 mg, Oral, DAILY, First dose on Thu07/19/24 at 1730, Until Discontinu ed, Routine [facility] hydralAZINE (APRESOLINE ) injection 10 mg 07-19 22:16: 33 Yes 10mg 10 mg, Slow IV Push, Q6HPRN, Starting on Thu07/19/24 at 1716, Until Discontinu ed, Routine, DBP=>100; SBP=>160, For SBP > 160 [facility] pantoprazol e (PROTONIX) injection 40 mg 07-19 21:30: 00 Yes 40mg 40 mg, Slow IV Push, Q24H, First dose on Thu07/19/24 at 1630, Until Discontinu ed [facility] bisacodyL (DULCOLAX) suppository 10 mg 07-19 21:15: 00 07-19 21:04 :00 No 10mg 10 mg, Rectal, ONCE, 1 dose, On Thu07/19/24 at 1615, Routine [facility] diphenhydrA MINE:lidoca ine 2% viscous:maa lox 1:1:1 (FIRST-MOUT HWASH [facility]) oral suspension 15 mL 07-19 21:15: 00 07-19 21:02 :00 No 15mL 15 mL, Oral, ONCE, 1 dose, On Thu07/19/24 at 1615, [facility] LORazepam (ATIVAN) injection 1 mg 07-19 20:24: 20 Yes 1mg 1 mg, Slow IV Push, Q2HPRN, Starting on Thu07/19/24 at 1524, Until Discontinu ed, Routine, withdrawl [facility] predniSONE (DELTASONE) tablet 10 mg 07-19 14:00: 00 Yes 10mg 10 mg, Oral, DAILY, First dose on Thu07/19/24 at 0900, Until Discontinu ed, Routine [facility] HYDROcodone -acetaminop hen (NORCO) 10-325 mg tablet 1 tablet 07-19 12:53: 33 Yes 1{tbl} 1 tablet, Oral, Q6HPRN, Starting on Thu07/19/24 at 0753, Until Discontinu ed, Routine, Pain (scale 4-6) [facility] budesonide- formoteroL (SYMBICORT) 160-4.5 mcg/actuati on inhaler 2 Puff 07-19 01:00: 00 Yes 2{puff} 2 Puff, Inhalation , BID, First dose on Thu07/18/24 at 2000, Until Discontinu ed, [facility] ipratropium -albuteroL (DUONEB) 0.5 mg-3 mg(2.5 mg base)/3 mL nebulizer solution 3 mL 07-19 01:00: 00 07-20 16:26 :23 No 3mL 3 mL, Inhalation , QID, First dose on Thu07/18/24 at 2000, Until Discontinu ed, Routine [facility] D5W 0.45% NaCl (1/2NS) 1 L + KCL 20 mEq 07-18 22:30: 00 Yes IV Infusion, at 75 mL/hr, CONTINUOUS , Starting on Thu07/18/24 at 1730, Until Discontinu ed, Routine [facility] ampicillin- sulbactam (UNASYN) 3 g [...] Respirator y, Duration of therapy: 5 days [facility] enoxaparin (LOVENOX) injection 40 mg 07-18 22:00: 00 Yes 40mg 40 mg, Subcutaneo us, DAILY, First dose on Thu07/18/24 at 1700, Until Discontinu ed, Routine [facility] nicotine (NICODERM) 21 mg/24 hr patch 1 Patch 07-18 19:15: 00 Yes 1{patch } 1 Patch, Topical, Administer over 24 Hours, Q24H, First dose on Thu07/18/24 at 1415, Until Discontinu ed, Routine [facility] dexMEDEtomi dine 200 mcg in [...] at maximum allowed dose, contact prescriber . [facility] ketorolac (TORADOL) injection 30 mg 07-18 14:45: 00 07-18 15:15 :00 No 30mg 30 mg, Slow IV Push, ONCE, 1 dose, On Thu07/18/24 at 0945, LAURYN [facility] NaCl 0.9% (NS) bolus infusion 1,000 mL 07-18 14:30: 00 07-18 16:30 :00 No 1000mL at 999 mL/hr, 1,000 mL, IV Infusion, ONCE, 1 dose, On Thu07/18/24 at 0930, LAURYN [facility] thiamine mononitrate (VITAMIN B-1 (MONONITRAT E)) tablet 100 mg 07-18 14:00: 00 Yes 100mg 100 mg, Oral, DAILY, First dose on Thu07/18/24 at 0900, Until Discontinu ed, Routine [facility] foLIC acid (FOLATE) tablet 1 mg 07-18 14:00: 00 Yes 1mg 1 mg, Oral, DAILY, First dose on Thu07/18/24 at 0900, Until Discontinu ed, Routine [facility] methylpredn isolone sod succ (SOLU-MEDRO L) injection 125 mg 07-18 14:00: 00 07-18 13:12 :00 No 125mg 125 mg, Intravenou s, ONCE, 1 dose, On Thu07/18/24 at 0900, 2 mL [facility] oxazepam (SERAX) capsule 15 mg 07-18 13:50: 52 Yes 15mg 15 mg, Oral, Q4HPRN, Starting on Thu07/18/24 at 0850, Until Discontinu ed, Routine, Only while awake for DBP equal to or greater than 100, HR equal to or greater than 100. [facility] proMETHazin e (PHENERGAN) 12.5 mg in NS 50 mL IV piggyback (CNR) 07-18 13:45: 00 07-18 14:29 :00 No 12.5mg 12.5 mg, IV Piggyback, at 200 mL/hr Administer over 15 Minutes, ONCE, 1 dose, On Thu07/18/24 at 0845, [facility] cefTRIAXone (ROCEPHIN) 1,000 mg in NaCl 0.9% (NS) 100 mL MINI-BAG 07-18 13:30: 00 07-18 14:13 :00 No 1000mg 1,000 mg, IV Piggyback, ONCE, 1 dose, On Thu07/18/24 at 0830, Administer over 30 Minutes, 100 mL, Reason for Anti-Infec tive: Documented Infection, Documented Infection Site: Respirator y, Duration of Therapy: Once (ED) [facility] ipratropium -albuteroL (DUONEB) 0.5 mg-3 mg(2.5 mg base)/3 mL nebulizer solution 3 mL 07-18 13:30: 00 07-18 12:47 :00 No 3mL 3 mL, Inhalation , ONCE, 1 dose, On Thu07/18/24 at 0830, [facility] aspirin tablet 325 mg 07-18 13:15: 00 07-18 12:37 :00 No 325mg 325 mg, Oral, ONCE, 1 dose, On Thu07/18/24 at 0815, [facility] NaCl 0.9% (NS) bolus infusion 1,000 mL 07-18 13:00: 00 07-18 14:57 :00 No 1000mL at 999 mL/hr, 1,000 mL, IV Infusion, ONCE, 1 dose, On Thu07/18/24 at 0800, [facility] LORazepam (ATIVAN) injection 1 mg 07-18 12:45: 00 07-18 12:46 :00 No 1mg 1 mg, Slow IV Push, ONCE, 1 dose, On Thu07/18/24 at 0745, STAT [facility] famotidine (PEPCID (PF)) injection 20 mg 07-18 12:15: 00 07-18 12:37 :00 No 20mg 20 mg, Slow IV Push, ONCE, 1 dose, On Thu07/18/24 at 0715, [facility] ondansetron (ZOFRAN (PF)) injection 8 mg 07-18 12:15: 00 07-18 12:37 :00 No 8mg 8 mg, Slow IV Push, ONCE, 1 dose, On Thu07/18/24 at 0715, [facility] albuterol sulfate HFA 90 mcg/actuati [...] 1 dose, On Thu05/24/24 at 0900, LAURYN [facility] mupirocin 2 % ointment 05-24 00:00: 00 Yes [id number] 6 Apply to area(s) 3 (three) times daily. [facility] cephALEXin 500 mg tablet 05-24 00:00: 00 06-01 04:59 :00 No [id number] 500mg Take 1 tablet by mouth 4 (four) times daily for 7 days. [facility] ketorolac (TORADOL) injection 30 mg 02-17 03:15: 00 02-17 15:14 :00 No 30mg 30 mg, Slow IV Push, ONCE, 1 dose, On Thu02/17/24 at 2215, Routine [facility] methylpredn isolone sod succ (SOLU-MEDRO L) injection 125 mg 02-17 03:00: 00 02-17 14:59 :00 No 125mg 125 mg, Intravenou s, ONCE, 1 dose, On Thu02/17/24 at 2200, 2 mL [facility] ipratropium -albuteroL (DUONEB) 0.5 mg-3 mg(2.5 mg base)/3 mL nebulizer solution 6 mL 02-17 03:00: 00 02-17 14:59 :00 No 6mL 6 mL, Inhalation , ONCE NOW, 1 dose, On Thu02/17/24 at 2200, Routine [facility] NaCl 0.9% (NS) bolus infusion 1,000 mL 02-17 03:00: 00 02-17 14:59 :00 No 1000mL at 999 mL/hr, 1,000 mL, IV Infusion, ONCE, 1 dose, On Thu02/17/24 at 2200, LAURYN [facility] triamterene -hydrochlor othiazide 37.5-25 mg per capsule 02-16 20:52: 37 02-16 00:00 :00 No 1{capsu le} Take 1 capsule by mouth every morning. [facility] albuterol 5 mg/mL nebulizer solution 02-16 20:51: 42 02-16 00:00 :00 No 2.5mg Inhale 2.5 mg every 6 (six) hours as needed for Wheezing or Shortness of Breath. [facility] ketorolac (TORADOL) injection 15 mg 02-08 03:00: 00 02-08 02:21 :00 No 15mg 15 mg, Slow IV Push, ONCE, 1 dose, On Thu02/08/24 at 2200, Routine [facility] iopamidol (ISOVUE 370-500 mL) injection 100 mL 02-07 22:30: 00 02-07 22:30 :00 No [id number] 100mL 100 mL, Intravenou s, ONCE, 1 dose, On Thu02/08/24 at 1730, Routine [facility] ipratropium -albuteroL (DUONEB) 0.5 mg-3 mg(2.5 mg base)/3 mL nebulizer solution 3 mL 02-07 21:15: 00 02-07 20:45 :00 No 3mL 3 mL, Inhalation , ONCE, 1 dose, On Thu02/08/24 at 1615, Routine [facility] morpHINE (2 mg/mL) injection 4 mg 02-07 21:15: 00 02-07 20:27 :00 No 4mg 4 mg, Slow IV Push, ONCE, 1 dose, On Thu02/08/24 at 1615, STAT [facility] ondansetron (ZOFRAN (PF)) injection 4 mg 02-07 21:15: 00 02-07 20:22 :00 No 4mg 4 mg, Slow IV Push, ONCE, 1 dose, On Thu02/08/24 at 1615, [facility] magnesium sulfate in water 2 gram/50 mL (4 %) infusion 2 g 02-07 21:00: 00 02-07 21:30 :00 No 2g 2 g, IV Piggyback, Administer over 60 Minutes, ONCE, 1 dose, On Thu02/08/24 at 1600, Routine [facility] ipratropium -albuteroL (DUONEB) 0.5 mg-3 mg(2.5 mg base)/3 mL nebulizer solution 3 mL 02-07 20:30: 00 02-07 19:31 :00 No 3mL 3 mL, Inhalation , ONCE, 1 dose, On Thu02/08/24 at 1530, [facility] HYDROcodone -acetaminop hen (NORCO) 10-325 mg tablet 1 tablet 01-13 13:15: 00 01-13 12:15 :00 No 1{tbl} 1 tablet, Oral, ONCE, 1 dose, On Thu01/14/24 at 0715, [facility] ipratropium -albuteroL (DUONEB) 0.5 mg-3 mg(2.5 mg base)/3 mL nebulizer solution 3 mL 01-13 13:00: 00 01-13 11:53 :00 No 3mL 3 mL, Inhalation , ONCE NOW, 1 dose, On Thu01/14/24 at 0700, [facility] ondansetron (ZOFRAN (PF)) injection 4 mg 01-13 11:30: 00 01-13 11:37 :00 No 4mg 4 mg, Slow IV Push, ONCE, 1 dose, On Thu01/14/24 at 0530, [facility] morpHINE (4 mg/mL) injection 4 mg 01-13 11:30: 00 01-13 11:37 :00 No 4mg 4 mg, Slow IV Push, ONCE, 1 dose, On Thu01/14/24 at 0530, STAT [facility] azithromyci n (ZITHROMAX Z-PORTER) 250 mg tablet 01-13 00:00: 00 02-16 00:00 :00 No [id number] Take 500 mg on day 1 then 250 mg on days 2-5 [facility] predniSONE 20 mg tablet 01-13 00:00: 00 02-16 00:00 :00 No [id number] Take 1 po tid x 2 days, then take 1 po bid x 3 days, then take 1 po daily x 3 days. [facility] acetaminoph en-codeine 300-30 mg tablet 01-13 00:00: 00 01-21 04:59 :00 No [id number] 1{tbl} Take 1 tablet by mouth every 6 (six) hours as needed for Pain (scale 7-10) (severe cough) for up to 7 days. Indication s: acute pain, severe cough [facility] clonazePAM 1 mg tablet 12-26 00:00: 00 02-16 00:00 :00 No 1mg Take 1 tablet by mouth at bedtime as needed for Other (anxiety). [facility] KCL (KLOR-CON M20) tablet 40 mEq 12-23 05:00: 00 12-23 05:07 :00 No 40meq 40 mEq, Oral, ONCE, 1 dose, On Thu12/22/23 at 2300, LAURYN [facility] NaCl 0.9% (NS) bolus infusion 1,000 mL 12-23 05:00: 00 12-23 05:09 :00 No 1000mL at 999 mL/hr, 1,000 mL, IV Infusion, ONCE, 1 dose, On Thu12/22/23 at 2300, LAURYN [facility] ondansetron (ZOFRAN (PF)) injection 4 mg 12-23 04:30: 00 12-23 04:24 :00 No 4mg 4 mg, Slow IV Push, ONCE, 1 dose, On Thu12/22/23 at 2230, [facility] maalox:diph enhydrAMINE :lidocaine 2 % viscous 1:1:1 (FIRST-MOUT HWASH BLM) oral suspension 15 mL 12-23 04:15: 00 12-23 04:17 :00 No 15mL 15 mL, Oral, ONCE, 1 dose, On Thu12/22/23 at 2215, Routine [facility] famotidine (PEPCID (PF)) injection 20 mg 12-23 04:15: 00 12-23 04:15 :00 No 20mg 20 mg, Slow IV Push, ONCE, 1 dose, On Thu12/22/23 at 2215, [facility] HYDROcodone -acetaminop hen (NORCO) 10-325 mg tablet 1 tablet 12-22 04:30: 00 12-22 16:29 :00 No 1{tbl} 1 tablet, Oral, ONCE, 1 dose, On Thu12/21/23 at 2230, Routine [facility] pantoprazol e (PROTONIX) 80 mg in NaCl 0.9% (NS) 20 mL syringe 12-22 04:15: 00 12-22 16:14 :00 No 80mg 80 mg, IV Push, ONCE, 1 dose, On Thu12/21/23 at 2215, Administer over 2 Minutes, 20 mL [facility] iopamidol (ISOVUE 370-500 mL) injection 100 mL 12-22 03:30: 00 12-22 03:30 :00 No [id number] 100mL 100 mL, Intravenou s, ONCE, 1 dose, On Thu12/21/23 at 2130, Routine [facility] morpHINE (4 mg/mL) injection 4 mg 12-22 03:30: 00 12-22 02:16 :00 No 4mg 4 mg, Slow IV Push, ONCE, 1 dose, On Thu12/21/23 at 2130, Routine [facility] ondansetron (ZOFRAN (PF)) injection 4 mg 12-22 02:45: 00 12-22 02:02 :00 No 4mg 4 mg, Slow IV Push, ONCE, 1 dose, On Thu12/21/23 at 2045, Routine [facility] hydrocortis one 25 mg suppository 12-22 00:00: 00 Yes [id number] 25mg Insert 1 Suppositor y into rectum 2 (two) times daily as needed for Rectal itching/pa in. [facility] ondansetron 4 mg disintegrat ing tablet 12-22 00:00: 00 02-16 00:00 :00 No [id number] 4mg Take 1 tablet by mouth every 8 (eight) hours as needed for Nausea and Vomiting (N/V). [facility] amoxicillin -clavulanat e 875-125 mg per tablet 12-22 00:00: 00 01-02 05:59 :00 No [id number] 1{tbl} Take 1 tablet by mouth every 12 (twelve) hours for 10 days. [facility] methylpredn isolone sod succ (SOLU-MEDRO L) injection 125 mg 2022-11 08:45: 00 10-27 20:44 :00 No 125mg 125 mg, Slow IV Push, ONCE, 1 dose, On Thu10/27/23 at 0245, STAT [facility] ipratropium -albuteroL (DUONEB) 0.5 mg-3 mg(2.5 mg base)/3 mL nebulizer solution 3 mL 2022-11 08:45: 00 10-27 20:44 :00 No 3mL 3 mL, Inhalation , ONCE NOW, 1 dose, On Thu10/27/23 at 0245, LAURYN [facility] diazePAM (VALIUM) tablet 10 mg 2022-11 07:45: 00 10-27 19:44 :00 No 10mg 10 mg, Oral, ONCE, 1 dose, On Thu10/27/23 at 0145, LAURYN [facility] levoFLOXaci n (LEVAQUIN) tablet 500 mg 2022-11 07:45: 00 10-27 19:44 :00 No 500mg 500 mg, Oral, ONCE, 1 dose, On Thu10/27/23 at 0145, LAUYRN
Re ason for Anti-Infec tive: Empiric Non-Surgic al Prophylaxi s
Durat ion of therapy: Once (ED) [facility] DICLOFEN SOD 75MG EC 04-08 00:00: [...] 00:00: 00 Yes Tunde Haro AMOX/K CLAV 295-083 1433-0 3-03 00:00: 00 Yes Tunde Haro iopamidol (ISOVUE 370-500 mL) injection 70 mL 2021-11- 18:30: 00 10-14 18:30 :00 No [id number] 70mL 70 mL, Intravenou s, ONCE, 1 dose, On Thu10/14/22 at 1230, Routine [facility] methylpredn isolone sod succ (SOLU-MEDRO L) injection 125 mg 2021-11 18:00: 00 Yes 125mg 125 mg, Intravenou s, Q6H, First dose on Thu10/14/22 at 1200, Until Discontinu ed, Routine [facility] furosemide (LASIX) injection 40 mg 2021-11 17:45: 00 10-14 16:39 :00 No 40mg 40 mg, IV Push, ONCE, 1 dose, On Thu10/14/22 at 1145, ALURYN [facility] ipratropium -albuteroL (DUONEB) 0.5 mg-3 mg(2.5 mg base)/3 mL nebulizer solution 3 mL 2021-11 17:30: 00 10-14 16:41 :00 No 3mL 3 mL, Inhalation , ONCE, 1 dose, On Thu10/14/22 at 1130, Routine [facility] FENTanyl PF (SUBLIMAZE (PF)) injection 50 mcg 2021-11 16:45: 00 10-14 16:39 :00 No 50ug 50 mcg, Slow IV Push, ONCE, 1 dose, On Thu10/14/22 at 1045, Routine [facility] levoFLOXaci n 750 mg tablet 2021-11 00:00: 00 02-16 00:00 :00 No [id number] 750mg Take 1 tablet by mouth every 24 (twenty-fo ur) hours. [facility] HYDROcodone -acetaminop hen (NORCO) 10-325 mg tablet 1 tablet 03-12 12:15: 00 03-12 11:21 :00 No 1{tbl} 1 tablet, Oral, ONCE, 1 dose, On Thu03/12/22 at 0715, Routine [facility] HYDROcodone -acetaminop hen 10-325 mg tablet 03-12 00:00: 00 03-20 04:59 :00 No [id number] 1{tbl} Take 1 tablet by mouth every 6 (six) hours as needed for Pain (scale 7-10) for up to 7 days. Indication s: acute pain [facility] ipratropium -albuteroL (DUONEB) 0.5 mg-3 mg(2.5 mg base)/3 mL nebulizer solution 3 mL 02-20 13:00: 00 Yes 3mL 3 mL, Inhalation , QID, First dose on Thu02/20/22 at 0800, Until Discontinu ed, Routine [facility] methylPREDN ISolone sod succ (SOLU-MEDRO L (PF)) injection 40 mg 02-20 11:45: 00 02-20 10:43 :00 No 40mg 40 mg, Intravenou s, ONCE, 1 dose, On Thu02/20/22 at 0645, STAT [facility] foLIC acid (FOLATE) tablet 1 mg 02-20 11:45: 00 02-20 10:41 :00 No 1mg 1 mg, Oral, ONCE, 1 dose, On Thu02/20/22 at 0645, LAURYN [facility] thiamine (VITAMIN B1) injection 100 mg 02-20 11:45: 00 02-20 10:43 :00 No 100mg 100 mg, Intravenou s, ONCE, 1 dose, On Thu02/20/22 at 0645, LAURYN [facility] LORazepam (ATIVAN) injection 2 mg 02-20 11:45: 00 02-20 10:42 :00 No 2mg 2 mg, Slow IV Push, ONCE, 1 dose, On Kym 02/20/22 at 0645, STAT [facility] ipratropium -albuteroL (DUONEB) 0.5 mg-3 mg(2.5 mg base)/3 mL nebulizer solution 3 mL 02-20 10:30: 00 02-20 09:34 :00 No 3mL 3 mL, Inhalation , ONCE, 1 dose, On Thu02/20/22 at 0530, Routine [facility] triamterene -hydrochlor othiazid 37.5-25 mg tablet 02-20 00:00: 00 Yes [id number] 1{tbl} Take 1 tablet by mouth daily. [facility] albuterol 90 mcg/actuati on inhaler 02-20 00:00: 00 07-20 00:00 :00 No [id number] 2{puff} Inhale 2 Puffs every 4 (four) hours as needed for Wheezing or Shortness of Breath. [facility] chlordiazeP OXIDE 25 mg capsule 02-20 00:00: 00 07-20 00:00 :00 No [id number] 25mg Take 1 capsule by mouth every 6 (six) hours as needed for Anxiety, Agitation, Heart Rate => 100 or Detox. [facility] predniSONE 10 mg tablet 02-20 00:00: 00 02-16 00:00 :00 No [id number] TAKE ONE TABLET BY MOUTH DAILY [facility] albuterol 2.5 mg /3 mL (0.083 %) nebulizer solution 02-20 00:00: 00 02-16 00:00 :00 No [id number] 2.5mg Inhale 3 mL every 4 (four) hours. May also nebulize one extra every 6 hours. [facility] budesonide- formoteroL 160-4.5 mcg/actuati on inhaler 02-20 00:00: 00 02-16 00:00 :00 No [id number] 2{puff} Inhale 2 Puffs 2 (two) times daily. [facility] albuterol 5 mg/mL nebulizer solution 07-16 14:02: 20 Yes 2.5mg Inhale 2.5 mg every 6 (six) hours as needed for Wheezing or Shortness of Breath. [facility] budesonide- formoterol 160-4.5 mcg/actuati on inhaler 07-16 00:00: 00 Yes 2{puff} Inhale 2 Puffs 2 (two) times daily. [facility] albuterol 2.5 mg /3 mL (0.083 %) nebulizer solution 07-16 00:00: 00 Yes 2.5mg Inhale 3 mL every 4 (four) hours as needed for Wheezing or Shortness of Breath. [facility] triamterene -hydrochlor othiazide 37.5-25 mg per capsule 03-26 16:32: 14 Yes 1{capsu le} Take 1 capsule by mouth every morning. [facility] amLODIPine 10 mg tablet 03-26 16:32: 14 Yes 10mg Take 10 mg by mouth at bedtime. [facility] gabapentin 100 mg capsule 03-26 16:32: 14 Yes 100mg Take 100 mg by mouth 2 (two) times daily as needed (MSK pain). [facility] foLIC acid 1 mg tablet 03-26 16:32: 14 Yes 1mg Take 1 mg by mouth daily. [facility] budesonide- formoterol 160-4.5 mcg/actuati on inhaler 03-26 00:00: 00 02-16 00:00 :00 No 2{puff} Inhale 2 Puffs 2 (two) times daily. [facility] Immunizations Ordered Immunization Name Filled Immunization [...] [place] Pneumococcal Polysaccharide, PPSV23 (PNEUMOVAX) [facility] Influenza Virus Vaccine Quad IM 3+ YRS Unknown Completed [facility] [place] SARS-COV-2 COVID-19 PFIZER VACCINE Unknown Completed [facility] [place] Pneumococcal Polysaccharide, PPSV23 (PNEUMOVAX) Unknown [facility] Influenza Virus Vaccine Quad IM 3+ YRS Unknown Completed [facility] [place] SARS-COV-2 COVID-19 PFIZER VACCINE Unknown Completed [facility] [place] Pneumococcal Polysaccharide, PPSV23 (PNEUMOVAX) Unknown Completed [facility] Influenza Virus Vaccine Quad IM 3+ YRS Unknown Completed [facility] [place] SARS-COV-2 COVID-19 PFIZER VACCINE Unknown Completed [facility] [place] Pneumococcal Polysaccharide, PPSV23 (PNEUMOVAX) Unknown [facility] Influenza Virus Vaccine Quad IM 3+ YRS Unknown Completed [facility] [place] SARS-COV-2 COVID-19 PFIZER VACCINE Unknown Completed [facility] [place] Pneumococcal Polysaccharide, PPSV23 (PNEUMOVAX) Unknown Completed [facility] Influenza Virus Vaccine Quad IM 3+ YRS Unknown Completed [facility] [place] SARS-COV-2 COVID-19 PFIZER VACCINE Unknown Completed [facility] [place] Pneumococcal Polysaccharide, PPSV23 (PNEUMOVAX) Unknown [facility] Influenza Virus Vaccine Quad IM 3+ YRS Unknown Completed [facility] [place] SARS-COV-2 COVID-19 PFIZER VACCINE Unknown Completed [facility] [place] Pneumococcal Polysaccharide, PPSV23 (PNEUMOVAX) Unknown [facility] Influenza Virus Vaccine Quad IM 3+ YRS Unknown Completed [facility] [place] SARS-COV-2 COVID-19 PFIZER VACCINE Unknown Completed [facility] [place] Pneumococcal Polysaccharide, PPSV23 (PNEUMOVAX) Unknown Completed [facility] Influenza Virus Vaccine Quad IM 3+ YRS Unknown Completed [facility] [place] SARS-COV-2 COVID-19 PFIZER VACCINE Unknown Completed [facility] [place] Pneumococcal Polysaccharide, PPSV23 (PNEUMOVAX) Unknown Completed [facility] Influenza Virus Vaccine Quad IM 3+ YRS Unknown Completed [facility] [place] SARS-COV-2 COVID-19 PFIZER VACCINE Unknown Completed [facility] [place] Pneumococcal Polysaccharide, PPSV23 (PNEUMOVAX) Unknown Completed [facility] Influenza Virus Vaccine Quad IM 3+ YRS Unknown Completed [facility] [place] SARS-COV-2 COVID-19 PFIZER VACCINE Unknown Completed [facility] [place] Pneumococcal Polysaccharide, PPSV23 (PNEUMOVAX) Unknown Completed [facility] Influenza Virus Vaccine Quad IM 3+ YRS Unknown Completed [facility] [place] SARS-COV-2 COVID-19 PFIZER VACCINE Unknown Completed [facility] [place] Pneumococcal Polysaccharide, PPSV23 (PNEUMOVAX) Unknown Completed [facility] Influenza Virus Vaccine Quad IM 3+ YRS Unknown Completed [facility] [place] SARS-COV-2 COVID-19 PFIZER VACCINE Unknown Completed [facility] [place] Vital Signs Vital Name Observation Time Observation Value Comments S ource Systolic blood pressure 2024-07-23 18:00:00 175 mm[Hg] [facility] Diastolic blood pressure 2024-07-23 18:00:00 109 mm[Hg] [facility] Heart rate 2024-07-23 18:00:00 87 /min [facility] Respiratory rate 2024-07-23 18:00:00 16 /min [facility] [place] Oxygen saturation in Arterial blood by Pulse oximetry 2024-07-23 18:00:00 100 /min [facility] Body temperature 2024-07-23 16:15:00 36.61 Debbie [facility] [place] Body height 2024-07-23 16:15:00 162.6 cm [facility] Body weight 2024-07-23 16:15:00 123.832 kg [facility] BMI 2024-07-23 16:15:00 46.86 kg/m2 [facility] Heart rate 2024-07-20 19:15:00 116 /[facility] Respiratory rate 2024-07-20 19:15:00 10 /min [facility] [place] Oxygen saturation in Arterial blood by Pulse oximetry 2024-07-20 19:15:00 100 /min [facility] Systolic blood pressure 2024-07-20 17:00:00 149 mm[Hg] [facility] Diastolic blood pressure 2024-07-20 17:00:00 131 mm[Hg] [facility] Body temperature 2024-07-20 16:00:00 37.06 Debbie [facility] [place] Body weight 2024-07-20 08:00:00 82.5 kg [facility] BMI 2024-07-20 08:00:00 31.22 kg/m2 [facility] Body height 2024-07-18 14:23:00 162.6 cm [facility] Systolic blood pressure 2024-07-18 01:00:00 176 mm[Hg] [facility] Diastolic blood pressure 2024-07-18 01:00:00 88 mm[Hg] [facility] Heart rate 2024-07-18 01:00:00 113 /min [facility] Respiratory rate 2024-07-18 01:00:00 18 /min [facility] [place] Oxygen saturation in Arterial blood by Pulse oximetry 2024-07-18 01:00:00 95 /min [facility] Body temperature 2024-07-18 00:52:00 37.33 Debbie [facility] [place] Body height 2024-07-18 00:52:00 162.6 cm [facility] Body weight 2024-07-18 00:52:00 122.925 kg [facility] BMI 2024-07-18 00:52:00 46.52 kg/m2 [facility] Systolic blood pressure 2024-05-24 13:51:42 157 mm[Hg] [facility] Diastolic blood pressure 2024-05-24 13:51:42 93 mm[Hg] [facility] Heart rate 2024-05-24 13:51:42 98 /min [facility] Respiratory rate 2024-05-24 13:51:42 18 /min [facility] [place] Oxygen saturation in Arterial blood by Pulse oximetry 2024-05-24 13:51:42 97 /min [facility] Body temperature 2024-05-24 13:36:00 36.78 Debbie [facility] [place] Body height 2024-05-24 13:36:00 162.6 cm [facility] Body weight 2024-05-24 13:36:00 78.472 kg [facility] BMI 2024-05-24 13:36:00 29.70 kg/m2 [facility] Systolic blood pressure 2024-02-18 01:57:00 134 mm[Hg] [facility] Diastolic blood pressure 2024-02-18 01:57:00 94 mm[Hg] [facility] Body height 2024-02-18 01:57:00 162.6 cm [facility] Body weight 2024-02-18 01:57:00 79.379 kg [facility] BMI 2024-02-18 01:57:00 30.04 kg/m2 [facility] Heart rate 2024-02-18 01:53:00 110 /min [facility] Body temperature 2024-02-18 01:53:00 36.61 Debbie [facility] [place] Respiratory rate 2024-02-18 01:53:00 24 /min [facility] [place] Oxygen saturation in Arterial blood by Pulse oximetry 2024-02-18 01:53:00 93 /min [facility] Systolic blood pressure 2024-02-09 01:54:05 150 mm[Hg] [facility] Diastolic blood pressure 2024-02-09 01:54:05 91 mm[Hg] [facility] Heart rate 2024-02-09 01:54:05 87 /min [facility] Respiratory rate 2024-02-09 01:54:05 17 /min [facility] [place] Oxygen saturation in Arterial blood by Pulse oximetry 2024-02-09 01:54:05 93 /min [facility] Body temperature 2024-02-09 01:45:00 36.67 Debbie [facility] [place] Body height 2024-02-09 01:45:00 162.6 cm [facility] Body weight 2024-02-09 01:45:00 81.194 kg [facility] BMI 2024-02-09 01:45:00 30.73 kg/m2 [facility] Respiratory rate 2024-02-08 21:00:00 18 /min [facility] [place] Oxygen saturation in Arterial blood by Pulse oximetry 2024-02-08 21:00:00 96 /min [facility] Systolic blood pressure 2024-02-08 20:27:00 164 mm[Hg] [facility] Diastolic blood pressure 2024-02-08 20:27:00 90 mm[Hg] [facility] Heart rate 2024-02-08 20:27:00 83 /min [facility] Body temperature 2024-02-08 19:12:00 36.83 Debbie [facility] [place] Body height 2024-02-08 19:12:00 162.6 cm [facility] Body weight 2024-02-08 19:12:00 81.194 kg [facility] BMI 2024-02-08 19:12:00 30.73 kg/m2 [facility] Heart rate 2024-01-14 12:15:00 98 /min [facility] Body temperature 2024-01-14 12:15:00 36.56 Debbie [facility] [place] Respiratory rate 2024-01-14 12:15:00 14 /min [facility] [place] Oxygen saturation in Arterial blood by Pulse oximetry 2024-01-14 12:15:00 95 /min [facility] Systolic blood pressure 2024-01-14 12:00:00 140 mm[Hg] [facility] Diastolic blood pressure 2024-01-14 12:00:00 90 mm[Hg] [facility] Body height 2024-01-14 10:51:00 162.6 cm [facility] Body weight 2024-01-14 10:51:00 81.194 kg [facility] BMI 2024-01-14 10:51:00 30.73 kg/m2 [facility] Systolic blood pressure 2023-12-23 05:02:00 133 mm[Hg] [facility] Diastolic blood pressure 2023-12-23 05:02:00 84 mm[Hg] [facility] Heart rate 2023-12-23 05:02:00 78 /min [facility] Body temperature 2023-12-23 05:02:00 36.17 Debbie [facility] [place] Respiratory rate 2023-12-23 05:02:00 17 /min [facility] [place] Oxygen saturation in Arterial blood by Pulse oximetry 2023-12-23 05:02:00 91 /min [facility] Body height 2023-12-23 03:45:00 162.6 cm [facility] Body weight 2023-12-23 03:45:00 81.194 kg [facility] BMI 2023-12-23 03:45:00 30.73 kg/m2 [facility] Systolic blood pressure 2023-12-22 02:08:00 143 mm[Hg] [facility] Diastolic blood pressure 2023-12-22 02:08:00 92 mm[Hg] [facility] Heart rate 2023-12-22 02:08:00 81 /min [facility] Respiratory rate 2023-12-22 02:08:00 13 /min [facility] [place] Oxygen saturation in Arterial blood by Pulse oximetry 2023-12-22 02:08:00 95 /min [facility] Body temperature 2023-12-22 01:33:00 36.72 Debbie [facility] [place] Body height 2023-12-22 01:33:00 162.6 cm [facility] Body weight 2023-12-22 01:33:00 81.239 kg [facility] BMI 2023-12-22 01:33:00 30.74 kg/m2 [facility] Systolic blood pressure 2023-11-11 02:00:00 127 mm[Hg] [facility] Diastolic blood pressure 2023-11-11 02:00:00 87 mm[Hg] [facility] Heart rate 2023-11-11 02:00:00 79 /min [facility] Respiratory rate 2023-11-11 02:00:00 20 /min [facility] [place] Oxygen saturation in Arterial blood by Pulse oximetry 2023-11-11 02:00:00 98 /min [facility] Body temperature 2023-11-11 01:31:00 36.28 Debbie [facility] [place] Body height 2023-11-11 01:31:00 162.6 cm [facility] Body weight 2023-11-11 01:31:00 79.379 kg [facility] BMI 2023-11-11 01:31:00 30.04 kg/m2 [facility] Systolic blood pressure 2023-10-27 06:54:00 133 mm[Hg] [facility] Diastolic blood pressure 2023-10-27 06:54:00 94 mm[Hg] [facility] Heart rate 2023-10-27 06:54:00 95 /min [facility] Body temperature 2023-10-27 06:54:00 36.44 Debbie [facility] [place] Respiratory rate 2023-10-27 06:54:00 22 /min [facility] [place] Body height 2023-10-27 06:54:00 162.6 cm [facility] Body weight 2023-10-27 06:54:00 78.472 kg [facility] BMI 2023-10-27 06:54:00 29.70 kg/m2 [facility] Oxygen saturation in Arterial blood by Pulse oximetry 2023-10-27 06:54:00 94 /min [facility] Systolic blood pressure 2022-10-14 19:43:00 111 mm[Hg] [facility] Diastolic blood pressure 2022-10-14 19:43:00 74 mm[Hg] [facility] Heart rate 2022-10-14 19:43:00 98 /min [facility] Body temperature 2022-10-14 19:43:00 36.39 Debbie [facility] [place] Respiratory rate 2022-10-14 19:43:00 22 /min [facility] [place] Oxygen saturation in Arterial blood by Pulse oximetry 2022-10-14 19:43:00 94 /min [facility] Body height 2022-10-14 16:13:00 162.6 cm [facility] Body weight 2022-10-14 16:13:00 81.647 kg [facility] BMI 2022-10-14 16:13:00 30.90 kg/m2 [facility] Systolic blood pressure 2022-03-12 10:13:00 119 mm[Hg] [facility] Diastolic blood pressure 2022-03-12 10:13:00 75 mm[Hg] [facility] Heart rate 2022-03-12 10:13:00 105 /min [facility] Body temperature 2022-03-12 10:13:00 37.28 Debbie [facility] [place] Respiratory rate 2022-03-12 10:13:00 19 /min [facility] [place] Body height 2022-03-12 10:13:00 162.6 cm [facility] Body weight 2022-03-12 10:13:00 99.791 kg [facility] BMI 2022-03-12 10:13:00 37.76 kg/m2 [facility] Oxygen saturation in Arterial blood by Pulse oximetry 2022-03-12 10:13:00 96 /min [facility] Systolic blood pressure 2022-02-20 11:57:00 155 mm[Hg] [facility] Diastolic blood pressure 2022-02-20 11:57:00 88 mm[Hg] [facility] Heart rate 2022-02-20 11:57:00 105 /min [facility] Respiratory rate 2022-02-20 11:57:00 18 /min [facility] [place] Oxygen saturation in Arterial blood by Pulse oximetry 2022-02-20 11:57:00 100 /min [facility] Body temperature 2022-02-20 09:25:00 37 Debbie [facility] [place] Body height 2022-02-20 09:25:00 162.6 cm [facility] Body weight 2022-02-20 09:25:00 96.163 kg [facility] BMI 2022-02-20 09:25:00 36.39 kg/m2 [facility] Respiratory Rate 2024-05-26 13:39:00 16.00 [...] Source EKG-12 LEAD 2024-07-23 19:32:17 Yary Camp [facility] LACTIC ACID WHOLE BLOOD 2024-07-23 18:23:00 Mike Camp [facility] LIPASE 2024-07-23 17:05:00 Kathrin Yary G [facility] TROPONIN I 2024-07-23 17:05:00 Kathrin Yary G [facility] COMP. METABOLIC PANEL ([id number]) 2024-07-23 17:05:00 Yary Camp [facility] ETHANOL 2024-07-23 17:05:00 Yary Camp [facility] CBC WITH DIFF 2024-07-23 17:05:00 Yary Camp [facility] N-TERMINAL PRO-BNP 2024-07-23 17:05:00 Yary Camp [facility] HB ECG ROUTINE & RHYTHM STRIP 2024-07-20 14:13:43 Julien Marks [facility] MAGNESIUM 2024-07-20 08:21:00 Julien Marks [facility] BASIC METABOLIC PANEL (NA, K, CL, CO2, GLUCOSE, BUN, CREATININE, CA) 2024-07-20 08:21:00 Julien Marks [facility] CBC WITH DIFF 2024-07-20 08:21:00 Julien Marks [facility] MAGNESIUM 2024-07-19 09:24:00 Julien Marks [facility] BASIC METABOLIC PANEL (NA, K, CL, CO2, GLUCOSE, BUN, CREATININE, CA) 2024-07-19 09:24:00 Julien Marks [facility] CBC WITH DIFF 2024-07-19 09:24:00 Julien Marks [facility] LEGIONELLA AND STREPTOCOCCUS PNEUMONIAE URINARY ANTIGENS 2024-07-19 02:12:00 Julien Marks [facility] PROCALCITONIN 2024-07-18 21:39:00 Julien Marks [facility] LACTIC ACID WHOLE BLOOD 2024-07-18 15:51:00 Alfred Marks [facility] URINE DRUG (IMMUNOASSAY) - COMPREHENSIVE DRUG SCREEN W/O REFLEX 2024-07-18 15:31:00 Blu Mcguire [facility] MRSA / MSSA SCREEN BY PCR, NARES 2024-07-18 14:47:00 Julien Marks [facility] CT THORAX WO CONTRAST 2024-07-18 14:42:00 Rajinder Marks [facility] BLOOD CULTURE SCREEN 2024-07-18 13:01:00 Shay Stinson [facility] LACTIC ACID WHOLE BLOOD 2024-07-18 13:01:00 Facundo Stinson [facility] INFLUENZA A/B RSV COVID NAAT 2024-07-18 12:49:00 Shay Stinson [facility] LAB ONLY COVID INTERPRETATION 2024-07-18 12:49:00 Shay Stinson [facility] COMP. METABOLIC PANEL ([id number]) 2024-07-18 12:21:00 Blu Mcguire [facility] CRITICAL CARE 2024-07-18 12:12:28 Shay [facility]R CHEST 1 VW 2024-07-18 11:40:27 Blu Mcguire [facility] TROPONIN I 2024-07-18 11:18:00 Blu Mcguire [facility] ETHANOL 2024-07-18 11:18:00 Blu Mcguire [facility] CBC WITH DIFF 2024-07-18 11:18:00 Blu Mcguire [facility] N-TERMINAL PRO-BNP 2024-07-18 11:18:00 Blu Mcguire [facility] [place] HB ECG ROUTINE & RHYTHM STRIP 2024-07-18 11:10:41 Blu Mcguire [facility] XR CHEST 1 VW 2024-07-18 01:34:48 Blu Mcguire [facility] TROPONIN I 2024-07-18 00:56:00 [facility] COMP. METABOLIC PANEL ([id number]) 2024-07-18 00:56:00 Blu Mcguire [facility] [place] ETHANOL 2024-07-18 00:56:00 Blu Mcguire [facility] CBC WITH DIFF 2024-07-18 00:56:00 Blu Mcguire [facility] N-TERMINAL PRO-BNP 2024-07-18 00:56:00 Blu Mcguire [facility] AC PANEL 20 + LACTIC ACID 2024-02-08 20:47:00 Christina Villarreal [facility] XR CHEST 1 VW 2024-02-08 19:47:00 Christina Villarreal [facility] URINALYSIS 2024-02-08 19:36:00 Christina Villarreal [facility] MAGNESIUM 2024-02-08 19:25:00 [facility] TROPONIN I 2024-02-08 19:25:00 [facility] COMP. METABOLIC PANEL ([id number]) 2024-02-08 19:25:00 Christina Villarreal [facility] ETHANOL 2024-02-08 19:25:00 Christina Villarreal [facility] CBC WITH DIFF 2024-02-08 19:25:00 Christina Villarreal [facility] N-TERMINAL PRO-BNP 2024-02-08 19:25:00 Christina Villarreal [facility] EKG-12 LEAD 2024-01-14 12:00:51 Jac Navarro [facility] LIPASE 2024-01-14 11:11:00 Jac Navarro [facility] TROPONIN I 2024-01-14 11:11:00 Jac Navarro [facility] COMP. METABOLIC PANEL ([id number]) 2024-01-14 11:11:00 Jac Navarro [facility] ETHANOL 2024-01-14 11:11:00 Jac Navarro [facility] CBC WITH DIFF 2024-01-14 11:11:00 [facility] N-TERMINAL PRO-BNP 2024-01-14 11:11:00 Jac Navarro [facility] COVID-19 (ID NOW RAPID TESTING) 2024-01-14 11:11:00 Jac Navarro [facility] CONSENT/REFUSAL FOR DIAGNOSIS AND TREATMENT 2024-01-14 10:44:32 Doctor Unassigned, [place] [facility] LIPASE 2023-12-23 04:17:[address] [facility] COMP. METABOLIC PANEL ([id number]) 2023-12-23 04:17:00 Cailin Rowe [facility] CBC WITH DIFF 2023-12-23 04:17:00 [facility]23-12-23 04:17:[address] [facility] CONSENT/REFUSAL FOR DIAGNOSIS AND TREATMENT 2023-12-23 03:40:32 Doctor Unassigned, [place] [facility] CT ABDOMEN PELVIS W CONTRAST 2023-12-22 02:31:05 Quentin Maciel [facility] LIPASE 2023-12-22 01:58:00 Quentin Maciel [facility] COMP. METABOLIC PANEL ([id number]) 2023-12-22 01:58:00 Quentin Maciel [facility] ETHANOL 2023-12-22 01:58:00 Quentin Maciel [facility] CBC WITH DIFF 2023-12-22 01:58:00 Quentin Maciel [facility] PROTHROMBIN TIME / INR 2023-12-22 01:58:00 Wali [facility] URINALYSIS 2023-12-22 01:58:00 [facility] CONSENT/REFUSAL FOR DIAGNOSIS AND TREATMENT 2023-12-22 01:19:14 Doctor Unassigned, [place] [facility] NOTICE OF PRIVACY PRACTICES 2023-11-11 01:24:24 Doctor Unassigned, [place] [facility] CONSENT/REFUSAL FOR DIAGNOSIS AND TREATMENT 2023-11-11 01:23:54 Doctor Unassigned, [place] [facility] COVID-19 (ID NOW RAPID TESTING) 2023-10-27 07:09:00 Jac Navarro [facility] NOTICE OF PRIVACY PRACTICES 2023-10-27 06:49:48 Doctor Unassigned, [place] [facility] CONSENT/REFUSAL FOR DIAGNOSIS AND TREATMENT 2023-10-27 06:47:40 Doctor Unassigned, [place] [facility] CT ABDOMEN PELVIS W CONTRAST 2022-10-14 17:33:00 Quentin Maciel [facility] XR CHEST 1 VW 2022-10-14 17:10:37 Singer [facility] TROPONIN I 2022-10-14 16:37:00 [facility] COMP. METABOLIC PANEL (38258) 2022-10-14 16:37:00 [facility]FF 2022-10-14 16:37:00 Quentin Maciel [facility] PROTHROMBIN TIME / INR 2022-10-14 16:37:00 [facility] 2022-10-14 16:37:00 [facility]entin [facility] N-TERMINAL PRO-BNP 2022-10-14 16:37:00 Quentin Maciel [facility] CONSENT/REFUSAL FOR DIAGNOSIS AND TREATMENT 2022-10-14 15:56:36 Doctor Unassigned, [place] [facility] CONSENT/REFUSAL FOR DIAGNOSIS AND TREATMENT 2022-03-12 10:03:12 Doctor Unassigned, [place] [facility] XR CHEST 1 VW 2022-02-20 09:59:00 Christy Holliday [facility] LIPASE 2022-02-20 09:30:00 Christy Holliday [facility] TROPONIN I 2022-02-20 09:30:00 Christy Holliday [facility] COMP. METABOLIC PANEL (39938) 2022-02-20 09:30:00 Christy Holliday [facility] CBC WITH DIFF 2022-02-20 09:30:00 Christy Holliday [facility] N-TERMINAL PRO-BNP 2022-02-20 09:30:00 Christy Holliday [facility] NOTICE OF PRIVACY PRACTICES 2022-02-20 09:15:02 Doctor Unassigned, [place] [facility] CONSENT/REFUSAL FOR DIAGNOSIS AND TREATMENT 2022-02-20 09:14:47 Doctor Unassigned, [place] [facility] Encounters Start Date/Time End Date/Time Encounter Type Admission Type Attending [facility] Facility Care Department Encounter ID Source 2024-07-23 11:09:00 2024-07-23 13:55:00 Emergency X YARY CAMP PAMALA [facility] ERT [id number] [facility] 2024-07-23 11:09:00 2024-07-23 13:55:00 Emergency Yary Camp [facility] 1.2.840.114 350.1.13.10 4.2.7.2.686 [id number] [facility] 2024-07-18 06:09:00 2024-07-20 15:00:00 Inpatient X JULIEN MARKS [facility] JOÃO [id number] [facility] 2024-07-18 06:09:00 2024-07-20 15:00:00 Hospital Encounter Blu Mcguire [facility], David [facility] 1.2.840.114 350.1.13.10 4.2.7.2.686 [id number] [facility] 2024-07-17 19:49:00 2024-07-17 21:02:00 Emergency X LAUREEN MCGUIREBLU SANDERS [facility] ERT [id number] [facility] 2024-07-17 19:49:00 2024-07-17 21:02:00 Emergency Maynor Blu [facility] 1.2.840.114 350.1.13.10 4.2.7.2.686 [id number] [facility] 2024-06-06 10:15:00 2024-06-06 10:15:00 Outpatient WENDY BROWNLEE [id number] Maria Elena Alcantara 2024-05-26 13:21:21 2024-05-26 13:21:21 Outpatient SFA SFA [id number] Tunde Haro 2024-05-26 00:00:00 2024-05-26 00:00:00 Outpatient Visit [facility] [id number] Tunde Haro 2024-05-24 08:36:00 2024-05-24 09:39:00 Emergency X MYRNA SANDHU [facility] ERT [id number] [facility] 2024-05-24 08:36:00 2024-05-24 09:39:00 Emergency Mil Myrna [facility] ..840.114 350.1.13.10 4.2.7.2.686 [id number] [facility] 2024-04-14 16:30:00 2024-04-14 16:30:00 Outpatient DARIEN LOBO [id number] Maria Elena Alcantara 2024-04-12 11:00:00 2024-04-12 11:00:00 Outpatient MINNA ORTA MARIA ELENA BECERRA [id number] Maria Elena [facility] 2024-04-12 11:00:00 2024-04-12 11:00:00 Outpatient KEMWENDY POPE [facility]IA ELENA BECERRA [id number] [facility]24-04-12 00:00:00 2024-04-12 00:00:00 Outpatient SHARATH HALEY MARIA ELENA BECERRA [id number] Mariae Lena [facility] 2024-04-05 11:30:00 2024-04-05 11:30:00 Outpatient ALFREDONIURKADARIEN Olson MARIA ELENA BECERRA [id number] Maria Elena [facility] 2024-04-05 00:00:00 2024-04-05 00:00:00 Outpatient DARIEN LOBO MARIA ELENA BECERRA [id number] [facility] 2024-03-28 00:00:00 2024-03-28 00:00:00 Outpatient DARIEN LOBO MARIA ELENA BECERRA [id number] [facility] 2024-03-15 08:30:00 2024-03-15 08:30:00 Outpatient WENDY BROWNLEE MARIA ELENA BECERRA [id number] [facility] 2024-02-17 20:58:00 2024-02-17 21:44:00 Emergency X SALUDYARY JOHN [facility] ERT [id number] [facility] 2024-02-17 20:58:00 2024-02-17 21:44:00 Emergency Yary Camp [facility] 1.2.840.114 350.1.13.10 4.2.7.2.686 [id number] [facility] 2024-02-09 13:10:00 2024-02-09 15:14:00 Emergency E TUNDE QUINTANILLA [facility] [id number] [address] [place] [address] 2024-02-08 20:38:00 2024-02-08 21:40:00 Emergency X KEISHA DAVENPORT [facility] ERT [id number] [facility] 2024-02-08 20:38:00 2024-02-08 21:40:00 Emergency Keisha Davenport [facility] 1.2.840.114 350.1.13.10 4.2.7.2.686 [id number] [facility] 2024-02-08 14:08:00 2024-02-08 17:06:00 Emergency Christina Villarreal [facility] 1.2.840.114 350.1.13.10 4.2.7.2.686 [id number] [facility] 2024-01-14 04:46:00 2024-01-14 06:23:00 Emergency X TERESSA JAC [facility] ERT [id number] [facility] 2024-01-14 04:46:00 2024-01-14 06:23:00 Emergency Jac Navarro [facility] 1.2.840.114 350.1.13.10 4.2.7.2.686 [id number] [id number] [facility] 2023-12-22 21:51:00 2023-12-22 23:13:00 Emergency X TREV ROWERADHA [facility] ERT [id number] [facility] 2023-12-22 21:51:00 2023-12-22 23:13:00 Emergency Sullyroseline Cailin [facility] 1.2.840.114 350.1.13.10 4.2.7.2.686 [id number] [facility] 2023-12-21 19:36:00 2023-12-21 21:52:00 Emergency X QUENTIN MACIEL [facility] ERT [id number] [facility] 2023-12-21 19:36:00 2023-12-21 21:52:00 Emergency Quentin Maciel [facility] 1.2.840.114 350.1.13.10 4.2.7.2.686 [id number] [facility] 2023-11-10 19:29:00 2023-11-10 20:14:00 Emergency X CHRISTY HOLLIDAY [facility] ERT [id number] [facility] 2023-11-10 19:29:00 2023-11-10 20:14:00 Emergency Christy Holliday [facility] 1..840.114 350.1.13.10 4.2.7.2.686 [id number] [id number] [facility] 2023-10-27 00:49:00 2023-10-27 01:41:00 Emergency X TERESSAJAC [facility] ERT [id number] [facility] 2023-10-27 00:49:00 2023-10-27 01:41:00 Emergency Jac Navarro [facility] 1..840.114 350.1.13.10 4.2.7.2.686 [id number] [facility] 2023-07-15 00:00:00 2023-07-15 00:00:00 Outpatient YAMIL, DARIEN BECERRA [id number] Maria Elena [facility] 2023-06-16 11:30:00 2023-06-16 11:30:00 Outpatient DARIEN LOBO [id number] Maria Elena [facility] 2023-05-18 00:00:00 2023-05-18 00:00:00 Outpatient MARIA ELENA CHAN [id number] Maria Elena [facility] 2022-10-14 10:07:00 2022-10-14 14:39:00 Emergency X QUENTIN MACIEL [facility] ERT [id number] [facility] 2022-10-14 10:07:00 2022-10-14 14:39:00 Emergency Quentin Maciel [facility] 1..840.114 350.1.13.10 4.2.7.2.686 [id number] [facility] 2022-03-12 05:15:00 2022-03-12 06:41:00 Emergency X CHRISTY HOLLIDAY [facility] ERT [id number] [facility] 2022-03-12 05:15:00 2022-03-12 06:41:00 Emergency Christy Holliday [facility] 1.2.840.114 350.1.13.10 4.2.7.2.686 [id number] [facility] 2022-02-20 04:17:00 2022-02-20 07:16:00 Emergency X CHRISTY HOLLIDAY [facility] ERT [id number] [facility] 2022-02-20 04:17:00 2022-02-20 07:16:00 Emergency Christy Holliday [facility] 1.2.840.114 350.1.13.10 4.2.7.2.686 [id number] [facility] 2021-02-03 11:10:00 2021-02-03 11:10:00 Outpatient R DENISE [facility] [id number] [facility] 2021-01-13 11:20:00 2021-01-13 11:20:00 Outpatient [facility] [id number] [facility] 2020-11-10 08:20:00 2020-11-10 08:20:00 Outpatient R [facility] [id number] [facility] Results Test Description Test Time Test Comments Results Result Co mments Source [facility] WITH [id number] 18:19:05* Test Item Value Reference Range Interpretation [...] 33.2 g/dL 31.2-35.0 RDW-SD (test code = 75387-7) 53.9 fL 38.5-51.6 H RDW-CV (test code = 788-0) 15.2 % 12.1-15.4 PLT (test code = 777-3) 271 150-328 No platelet clum p seen on the smear MPV (test code = 29769-7) 10.1 fL 9.8-13.0 IPF % (test code = 3282320011) 4.2 % 1.2-10.7 Platelet count measured by fluorescence method. NRBC/100 WBC (test code = 9855137110) 0.0 0.0-10.0 NRBC x10^3 (test code = 7853137258) See_Comment [Automated Daylifea ge] The system which generated this result transmitted reference range: 10*3/?L. The reference range was not used to interpret this result as normal/abnormal. GRAN MAT (NEUT) % (test code = 770-8) 74.5 % IMM GRAN % (test code = 2366816897) 1.70 % LYMPH % (test code = 736-9) 12.8 % MONO % (test code = 5905-5) 10.4 % EOS % (test code = 713-8) 0.3 % BASO % (test code = 706-2) 0.3 % GRAN MAT x10^3(ANC) (test code = 5227992677) 10.27 10*3/uL 1.99-6.95 H IMM GRAN x10^3 (test code = 8501036541) 0.23 10*3/uL 0.00-0.06 H LYMPH x10^3 (test code = 731-0) 1.77 10*3/uL 1.09-3.23 MONO x10^3 (test code = 742-7) 1.43 10*3/uL 0.36-1.02 H EOS x10^3 (test code = 711-2) 0.04 10*3/uL 0.06-0.53 L BASO x10^3 (test code = 704-7) 0.04 10*3/uL 0.01-0.09 ELLIPTO/OVAL (test code = 86891-9) 2+ See_Comment A [Automated Daylifea ge] The system which generated this result transmitted reference range: (none). The reference range was not used to interpret this result as normal/abnormal. POLYCHROMASIA (test code = 37033-7) 2+ See_Comment [Automated Daylifea ge] The system which generated this result transmitted reference range: 2+. The reference range was not used to interpret this result as normal/abnormal. SPHEROCYTES (test code = 802-9) 1+ A TOXIC CHANGES (test code = 803-7) Present A PLT ESTIMATE (test code = 9317-9) Normal Normal Lab Interpretation (test code = 66684-0) [facility] [id number] 17:49:42* Test Item Value Reference Range Interpretation Comme nts TROPONIN I (test code = 8575843284) 0.004 ng/mL <=0.034 LOUISE (test code = [...] of biotin. Lab Interpretation (test code = 75519-3) Normal [facility] SOE-[id number] 17:47:05* Test Item Value Reference Range Interpretation Comme nts NT-proBNP (test code = 57650-9) 125 pg/mL <=125 Lab Interpretation (test cod e = 94891-7) Normal [facility] 17:39:20 ALCOHOL<10mg/dL07/23/2024 12:39 [facility]10 Rzfrjwtf76-049 Toxic>100 Depression of ACID ADJUSTER>400 Fatalities ReportedUnSt. [facility] CenterCOM. METABOLIC PANEL (52724)2024-07-23 17:38:03* Test Item Value Reference Range Interpretation Comme nts NA (test code = 2125737130) 134 mmol/L 135-145 L K (test code = 3656945408) 3.8 mmol/L 3.5-5.0 CL (test code = 1734204246) 98 mmol/L 98-108 CO2 TOTAL (test code = 4047184294) 22 mmol/L 23-31 L AGAP (test code = 5658965883) 14 2-16 BUN (test code = 3104716747) 14 mg/dL 7-23 GLUCOSE (test code = 7277509760) 110 mg/dL 70-110 CREATININE (test code = 2160-0) 0.54 mg/dL 0.60-1.25 L TOTAL BILI (test code = 8007061783) 1.1 mg/dL 0.1-1.1 CALCIUM (test code = 8454841531) 9.4 mg/dL 8.6-10.6 T PROTEIN (test code = 4627656959) 7.8 g/dL 6.3-8.2 ALBUMIN (test code = 0071707655) 4.9 g/dL 3.5-5.0 ALK PHOS (test code = 0558769480) 75 U/L 34-122 ALTv (test code = 1742-6) 21 U/L 5-50 AST(SGOT) (test code = 6024690524) 30 U/L 13-40 eGFR (test code = 47155-8) 117.0 mL/min/1.73m2 CKD-EPI eGFR (2020). Assuming creatinine has been stable day-to-day for at least three months, the eGFR indicates Category G1 (>= 90 mL/min/1.73 m2) Lab Interpretation (test code = 09822-1) [facility]normal [facility] 17:38:03* Test Item Value Reference Range Interpretation Comme nts LIPASE (test code = 9715031034) 48 U/L 0-220 Lab Interpretation (test cod e = 72105-2) Normal [facility] THORAX WO [id number] 13:12:40 PROCEDURE: CT CHEST WITHOUT CONTRAST - [...] lesions are detected.The soft tissues appear normal. [facility]20[facility] 07:32:10* Test Item Value Reference Range Interpretation Comme [facility] Procalcitonin (test code = 7818062306) 0.02 ng/mL <=0.07 LOUISE (test code = [...] lung abscess/empyema. For further information please refer to:[email or web address] Lab Interpretation (test code = 56375-4) Normal [facility] Arlington[facility] Whole Nenfr7882-42-58 16:01:14* Test Item Value Reference Range Interpretation Comme nts LACTIC ACID (test code = 0930435975) 1.87 mmol/L 0.50-2.20 Lab Interpretation (test cod e = 61721-3) Normal [facility] Arlington[facility] Whole Ynqfh4863-84-21 13:12:25* Test Item Value Reference Range Interpretation Comme nts LACTIC ACID (test code = 2816581923) 6.23 mmol/L 0.50-2.20 H Lab Interpretation (test cod e = 55792-9) Abnormal [facility]. METABOLIC PANEL (82560)2024-07-18 12:56:44* Test Item Value Reference Range Interpretation Comme nts NA (test code = 6432817487) 140 mmol/L 135-145 K (test code = 1800924421) 4.1 mmol/L 3.5-5.0 CL (test code = 5644223254) 102 mmol/L 98-108 CO2 TOTAL (test code = 0567889065) 20 mmol/L 23-31 L AGAP (test code = 4421150806) 18 2-16 H BUN (test code = 3325406114) 10 mg/dL 7-23 GLUCOSE (test code = 6531236761) 123 mg/dL 70-110 H CREATININE (test code = 2160-0) 0.59 mg/dL 0.60-1.25 L TOTAL BILI (test code = 7230298653) 0.6 mg/dL 0.1-1.1 CALCIUM (test code = 7099027699) 9.1 mg/dL 8.6-10.6 T PROTEIN (test code = 4313038432) 7.8 g/dL 6.3-8.2 ALBUMIN (test code = 7281119966) 4.9 g/dL 3.5-5.0 ALK PHOS (test code = 6678924241) 75 U/L 34-122 ALTv (test code = 1742-6) 23 U/L 5-50 AST(SGOT) (test code = 6997453703) 34 U/L 13-40 eGFR (test code = 92475-1) 113.9 mL/min/1.73m2 CKD-EPI eGFR (2020). Assuming creatinine has been stable day-to-day for at least three months, the eGFR indicates Category G1 (>= 90 mL/min/1.73 m2) Lab Interpretation (test code = 23981-3) Abnormal [facility] [id number] 12:12:28Shay Stinson MD ? ? 07/18/2024 ?8:56 [...] ? ?Care discussed with: admitting provider ? [facility]TR[facility]ENTERNOHEMY [id number] 12:08:40* Test Item Value Reference Range Interpretation Comme nts TROPONIN I (test code = 6664392391) 0.015 ng/mL <=0.034 LOUISE (test code = [...] of biotin. Lab Interpretation (test code = 00141-7) Normal [facility]MINAL [id number] 12:01:41* Test Item Value Reference Range Interpretation Comme nts NT-proBNP (test code = 17125-4) 111 pg/mL <=125 Lab Interpretation (test cod e = 09331-7) Normal [facility] 1 [id number] 11:57:22ORDERING PHYSICIAN: ZACH MCGUIRE CLINICAL HISTORY: Shortness of breath TECHNIQUE: Frontal view of chest COMPARISON: 07/17/2024 FINDINGS: The cardiac silhouette is mildly enlarged, stable. ?Stable right lower lobepatchy infiltrate. There are no effusions. The left lung is clear. Osseous structures are normal.[facility]OL2024-[facility]-09 11:53:01* Test Item Value Reference Range Interpretation Comme nts ALCOHOL (test code = 2553594594) 91 mg/dL LOUISE (test code = LOUISE) <10 Mthbbttm49-671 Toxic>100 Depression of ACID ADJUSTER>400 Fatalities Reported [facility] WITH [id number] 11:36:10* Test Item Value Reference Range Interpretation [...] 32.4 g/dL 31.2-35.0 RDW-SD (test code = 03250-9) 58.6 fL 38.5-51.6 H RDW-CV (test code = 788-0) 16.3 % 12.1-15.4 H PLT (test code = 777-3) 229 150-328 MPV (test code = 08426-0) 9.0 fL 9.8-13.0 L NRBC/100 WBC (test code = 3457277997) 0.0 0.0-10.0 NRBC x10^3 (test code = 3751413278) See_Comment [Automated message] The system which generated this result transmitted reference range: 10*3/?L. The reference range was not used to interpret this result as normal/abnormal. GRAN MAT (NEUT) % (test code = 770-8) 76.7 % IMM GRAN % (test code = 1074181675) 0.80 % LYMPH % (test code = 736-9) 15.8 % MONO % (test code = 5905-5) 6.6 % EOS % (test code = 713-8) 0.0 % BASO % (test code = 706-2) 0.1 % GRAN MAT x10^3(ANC) (test code = 7179783195) 11.29 10*3/uL 1.99-6.95 H IMM GRAN x10^3 (test code = 2988334838) 0.12 10*3/uL 0.00-0.06 H LYMPH x10^3 (test code = 731-0) 2.32 10*3/uL 1.09-3.23 MONO x10^3 (test code = 742-7) 0.97 10*3/uL 0.36-1.02 EOS x10^3 (test code = 711-2) 0.06-0.53 L BASO x10^3 (test code = 704-7) 0.01-0.09 Lab Interpretation (test code = 91618-9) Abnormal [facility] 1 [id number] 02:23:27EXAM: ?XR CHEST 1 VW HISTORY: ?dyspnea Ordering physician: BLU MCGUIRE COMPARISON: Chest x-ray from February 08, 2024. TECHNIQUE: Frontal chest x-ray. ? FINDINGS: Heart size is stable. Pulmonary vessels are normal. Mild infiltrate in theright lower lung is present. No pneumothorax or pleural effusion isdetected. Mediastinal contour is normal. No free air is discerned. There isno displaced rib fracture. ?[facility]IPID [id number] 00:00:00 * Test Item Value Reference Range Interpretation Comme nts CHOLESTEROL (test code = 2210) 234 MG/DL TRIGLYCERIDES (test code = 2232) 176 MG/DL HDL CHOLESTEROL (test code = 2220) 80 MG/DL CALC LDL CHOL (test code = 2237) 125 MG/DL RISK RATIO LDL/HDL (test cod e = 2238) 1.56 RATIO Tunde HaroCBC W/AUTO [id number] 00:00:00* Test Item Value Reference Range Interpretation [...] ABS NUCLEATED RBCS (test cod e = 05126) 0.00 K/UL Tunde Quiñonez TahirCOMPREHENSIVE METABOLIC [id number] 00:00:00* Test Item Value Reference Range Interpretation Comme nts GLUCOSE (test code = 2217) 145 MG/DL BUN (test code = 2208) 8 MG/DL CREATININE (test code = 2214) 0.71 MG/DL eGFR (2020 CKD-EPI) (test code = 23127) 108 ML/MIN/1.73 CALC BUN/CREAT (test code = [...] code = 2219) 11 U/L Tunde HaroHEMOGLOBIN [id number] 00:00:00* Test Item Value Reference Range Interpretation Comme nts HEMOGLOBIN A1c (test code = 34406) 5.5 % Tunde HaroWoxgblKjnomdu6176-27-53 21:47:04* Test Item Value Reference Range Interpretation Comme nts ALCOHOL (test code = 4805691303) 329 mg/dL LOUISE (test code = LOUISE) <10 Lvwhylrn70-879 Toxic>100 Depression of ACID ADJUSTER>400 Fatalities Reported [facility] 20 + Lactic [id number] 20:52:47* Test Item Value Reference Range Interpretation Comme nts PH (test code = 2) 7.39 7.35-7.45 PCO2 (test code = 1731628242) 42 35-45 PO2 (test code = 9484432816) 76 80-100 L HCO3 (test code = 8031175342) 25 22-26 BE (test code = 4976012811) -0.1 -3.0-3.0 THB (test code = 6789204619) 14.3 g/dL 13.5-18.0 %O2HB (test code = 9445722773) 85.8 % 94.0-99.0 L %COHB ART (test code = 5818959699) 9.0 % 0.0-1.5 H %METHB ART (test code = 3112295187) 0.3 % 0.4-1.5 L VOL%O2 ART (test code = 0436594851) 17.3 % 15.0-23.0 NA (test code = 6988064647) 140 mmol/L 135-145 K+ (test code = 7378705643) 4.1 mmol/L 3.5-5.0 AC CA IONZ (test code = 6800410825) 4.50 mg/dL 4.50-5.30 GLUCOSE (test code = 3074135690) 105 mg/dL 70-110 LACTIC ACID (test code = 0676356334) 2.60 mmol/L 0.50-2.20 H Lab Interpretation (test cod e = 22223-2) Abnormal [facility] ArlingtonTroponin [id number] 20:34:14* Test Item Value Reference Range Interpretation Comme nts TROPONIN I (test code = 4363647810) 0.008 ng/mL <=0.034 LOUISE (test code = [...] of biotin. Lab Interpretation (test code = 27000-1) Normal [facility] Arlington[facility]inal Tjh-Nvt0732-80-01 20:31:35* Test Item Value Reference Range Interpretation Comme nts NT-proBNP (test code = 88725-2) 188 pg/mL <=125 LOUISE (test code = LOUISE) Result Indeterminate-Consid er causes of NT-proBNP elevation other than Heart failure such as acute coronary syndrome, pulmonary embolism, pulmonary hypertension, sepsis, stroke, and renal dysfunction. Lab Interpretation (test code = 81335-4) Abnormal [facility] Arlington[facility]. Metabolic Panel (06309)2024-02-08 20:21:10* Test Item Value Reference Range Interpretation Comme nts NA (test code = 2832883208) 135 mmol/L 135-145 K (test code = 4930858433) 4.5 mmol/L 3.5-5.0 CL (test code = 2393852980) 100 mmol/L 98-108 CO2 TOTAL (test code = 1979885678) 22 mmol/L 23-31 L AGAP (test code = 1344626136) 13 2-16 BUN (test code = 4653530986) 8 mg/dL 7-23 GLUCOSE (test code = 7828658629) 97 mg/dL 70-110 CREATININE (test code = 2160-0) 0.65 mg/dL 0.60-1.25 TOTAL BILI (test code = 8787876234) 0.4 mg/dL 0.1-1.1 CALCIUM (test code = 4612612120) 9.4 mg/dL 8.6-10.6 T PROTEIN (test code = 0294996086) 8.2 g/dL 6.3-8.2 ALBUMIN (test code = 5086658634) 4.7 g/dL 3.5-5.0 ALK PHOS (test code = 8931943131) 76 U/L 34-122 ALTv (test code = 1742-6) 33 U/L 5-50 AST(SGOT) (test code = 9021169425) 54 U/L 13-40 H eGFR (test code = 60871-9) 111.3 mL/min/1.73m2 CKD-EPI eGFR (2020). Assuming creatinine has been stable day-to-day for at least three months, the eGFR indicates Category G1 (>= 90 mL/min/1.73 m2) Lab Interpretation (test code = 44768-5) [facility]* Test Item Value Reference Range Interpretation Comme nts MAGNESIUM (test code = 1146596309) 2.1 mg/dL 1.7-2.4 Lab Interpretation (test cod e = 98841-5) [facility] [id number] 20:07:21EXAM: XR CHEST 1 VW COMPARISON: 01/14/2024 HISTORY: sob FINDINGS: Lungs: Slightly hyperexpanded lungswith subtle progression of interstitialprominence. Trace pleural effusions could be present. Heart/Mediastinum: Stable cardiomegaly. Bones and soft tissues: No osseous abnormality is visualized.[facility] Cbc with [id number] 20:04:26* Test Item Value Reference Range Interpretation [...] 33.8 g/dL 31.2-35.0 RDW-SD (test code = 37175-3) 50.5 fL 38.5-51.6 RDW-CV (test code = 788-0) 14.3 % 12.1-15.4 PLT (test code = 777-3) 206 150-328 MPV (test code = 13844-6) 9.1 fL 9.8-13.0 L NRBC/100 WBC (test code = 0674180169) 0.0 0.0-10.0 NRBC x10^3 (test code = 5698272660) See_Comment [Automated messa ge] The system which generated this result transmitted reference range: 10*3/?L. The reference range was not used to interpret this result as normal/abnormal. GRAN MAT (NEUT) % (test code = 770-8) 81.0 % IMM GRAN % (test code = 1761862809) 1.20 % LYMPH % (test code = 736-9) 10.9 % MONO % (test code = 5905-5) 6.8 % EOS % (test code = 713-8) 0.0 % BASO % (test code = 706-2) 0.1 % GRAN MAT x10^3(ANC) (test code = 6282624422) 9.31 10*3/uL 1.99-6.95 H IMM GRAN x10^3 (test code = 9063705234) 0.14 10*3/uL 0.00-0.06 H LYMPH x10^3 (test code = 731-0) 1.25 10*3/uL 1.09-3.23 MONO x10^3 (test code = 742-7) 0.78 10*3/uL 0.36-1.02 EOS x10^3 (test code = 711-2) 0.06-0.53 L BASO x10^3 (test code = 704-7) 0.01-0.09 Lab Interpretation (test code = 05602-0) [facility] (34200)2023-12-23 04:53:26* Test Item Value Reference Range Interpretation Comme nts NA (test code = 7091043223) 135 mmol/L 135-145 K (test code = 1348825107) 3.2 mmol/L 3.5-5.0 L CL (test code = 0987324532) 104 mmol/L 98-108 CO2 TOTAL (test code = 9363900045) 23 mmol/L 23-31 AGAP (test code = 8637096280) 8 2-16 BUN (test code = 2944406563) 11 mg/dL 7-23 GLUCOSE (test code = 8380640874) 82 mg/dL 70-110 CREATININE (test code = 2160-0) 0.64 mg/dL 0.60-1.25 TOTAL BILI (test code = 9245341491) 0.5 mg/dL 0.1-1.1 CALCIUM (test code = 9809066141) 8.8 mg/dL 8.6-10.6 T PROTEIN (test code = 5728365850) 6.7 g/dL 6.3-8.2 ALBUMIN (test code = 9700728890) 4.1 g/dL 3.5-5.0 ALK PHOS (test code = 6204964101) 46 U/L 34-122 ALTv (test code = 1742-6) 21 U/L 5-50 AST(SGOT) (test code = 2753769702) 43 U/L 13-40 H eGFR (test code = 61950-6) 111.8 mL/min/1.73m2 CKD-EPI eGFR (2020). Assuming creatinine has been stable day-to-day for at least three months, the eGFR indicates Category G1 (>= 90 mL/min/1.73 m2) Lab Interpretation (test code = 73066-5) [facility] 04:53:26* Test Item Value Reference Range Interpretation Comme nts LIPASE (test code = 0079612545) 105 U/L 0-220 Lab Interpretation (test cod e = 03159-2) [facility] [id number] 04:34:24* Test Item Value Reference Range Interpretation [...] 33.0 g/dL 31.2-35.0 RDW-SD (test code = 68309-4) 50.9 fL 38.5-51.6 RDW-CV (test code = 788-0) 13.7 % 12.1-15.4 PLT (test code = 777-3) 232 150-328 MPV (test code = 86504-7) 8.7 fL 9.8-13.0 L NRBC/100 WBC (test code = 3579697364) 0.0 0.0-10.0 NRBC x10^3 (test code = 6118792791) See_Comment [Automated messa ge] The system which generated this result transmitted reference range: 10*3/?L. The reference range was not used to interpret this result as normal/abnormal. GRAN MAT (NEUT) % (test code = 770-8) 58.8 % IMM GRAN % (test code = 5754531274) 0.90 % LYMPH % (test code = 736-9) 27.8 % MONO % (test code = 5905-5) 10.5 % EOS % (test code = 713-8) 1.3 % BASO % (test code = 706-2) 0.7 % GRAN MAT x10^3(ANC) (test code = 7669594261) 5.68 10*3/uL 1.99-6.95 IMM GRAN x10^3 (test code = 6204978680) 0.09 10*3/uL 0.00-0.06 H LYMPH x10^3 (test code = 731-0) 2.69 10*3/uL 1.09-3.23 MONO x10^3 (test code = 742-7) 1.02 10*3/uL 0.36-1.02 EOS x10^3 (test code = 711-2) 0.13 10*3/uL 0.06-0.53 BASO x10^3 (test code = 704-7) 0.07 10*3/uL 0.01-0.09 Lab Interpretation (test code = 99383-8) [facility] [id number] 03:32:43Exam: CT Abdomen and Pelvis With Contrast, [...] Interpretation Comme nts ALCOHOL (test code = 3205698377) 117 mg/dL LOUISE (test code = LOUISE) <10 Sybhtnjr68-353 Toxic>100 Depression of ACID ADJUSTER>[address] [facility]. Metabolic Panel (21414)2023-12-22 02:31:43* Test Item Value Reference Range Interpretation Comme nts NA (test code = 8067182883) 133 mmol/L 135-145 L K (test code = 1721651771) 3.3 mmol/L 3.5-5.0 L CL (test code = 7091701338) 102 mmol/L 98-108 CO2 TOTAL (test code = 1986908507) 25 mmol/L 23-31 AGAP (test code = 3647201855) 6 2-16 BUN (test code = 0348351098) 11 mg/dL 7-23 GLUCOSE (test code = 9047750186) 75 mg/dL 70-110 CREATININE (test code = 7387643453) 0.51 mg/dL 0.60-1.25 L TOTAL BILI (test code = 1876060603) 0.5 mg/dL 0.1-1.1 CALCIUM (test code = 9634119532) 8.9 mg/dL 8.6-10.6 T PROTEIN (test code = 7660435933) 7.2 g/dL 6.3-8.2 ALBUMIN (test code = 8577249732) 4.5 g/dL 3.5-5.0 ALK PHOS (test code = 5786655373) 46 U/L 34-122 ALTv (test code = 1742-6) 15 U/L 5-50 AST(SGOT) (test code = 1862739961) 24 U/L 13-40 eGFR (test code = 90881-6) 119.7 mL/min/1.73m2 CKD-EPI eGFR (2020). Assuming creatinine has been stable day-to-day for at least three months, the eGFR indicates Category G1 (>= 90 mL/min/1.73 m2) Lab Interpretation (test code = 08379-9) [facility] 02:31:43* Test Item Value Reference Range Interpretation Comme nts LIPASE (test code = 0208316983) 121 U/L 0-220 Lab Interpretation (test cod e = 52052-9) [facility] / [id number] 02:21:02* Test Item Value Reference Range Interpretation Comme nts PROTIME PATIENT (test code = 5964-2) 10.5 10.1-12.6 INR (test code = 6301-6) 0.9 Normal INR <1.1; Warfarin Therapeutic range 2.0 to 3.0 or 2.5 to 3.5, depending upon the indications. Lab Interpretation (test code = 57137-8) Normal [facility] with [id number] 02:14:04* Test Item Value Reference Range Interpretation [...] 34.0 g/dL 31.2-35.0 RDW-SD (test code = 95454-8) 49.1 fL 38.5-51.6 RDW-CV (test code = 788-0) 13.5 % 12.1-15.4 PLT (test code = 777-3) 260 150-328 MPV (test code = 82198-7) 8.7 fL 9.8-13.0 L NRBC/100 WBC (test code = 3280879520) 0.0 0.0-10.0 NRBC x10^3 (test code = 2584444118) See_Comment [Automated messa ge] The system which generated this result transmitted reference range: 10*3/?L. The reference range was not used to interpret this result as normal/abnormal. GRAN MAT (NEUT) % (test code = 770-8) 64.3 % IMM GRAN % (test code = 2178705739) 0.90 % LYMPH % (test code = 736-9) 24.2 % MONO % (test code = 5905-5) 9.1 % EOS % (test code = 713-8) 0.7 % BASO % (test code = 706-2) 0.8 % GRAN MAT x10^3(ANC) (test code = 4377209204) 8.73 10*3/uL 1.99-6.95 H IMM GRAN x10^3 (test code = 2463327279) 0.12 10*3/uL 0.00-0.06 H LYMPH x10^3 (test code = 731-0) 3.28 10*3/uL 1.09-3.23 H MONO x10^3 (test code = 742-7) 1.23 10*3/uL 0.36-1.02 H EOS x10^3 (test code = 711-2) 0.10 10*3/uL 0.06-0.53 BASO x10^3 (test code = 704-7) 0.11 10*3/uL 0.01-0.09 H Lab Interpretation (test code = 39350-5) Abnormal [facility] [id number] 10:16:22* Test Item Value Reference Range Interpretation Comments TROPONIN I (test code = 9165306151) 0.007 ng/mL See_Comment [Automated message] The system [...] of biotin. Lab Interpretation (test code = 83631-9) Normal [facility] [id number] 10:13:01* Test Item Value Reference Range Interpretation Comme nts NT-proBNP (test code = 6695875194) 52 pg/mL See_Comment [Automated message] The system which generated this result transmitted reference range: <=125. The reference range was not used to interpret this result as normal/abnormal. LOUISE (test code = LOUISE) Biotin has been reported to cause a negative bias, interpret results relative to patient's use of biotin. Lab Interpretation (test code = 01874-3) [facility] (77441)2022-02-20 10:04:02* Test Item Value Reference Range Interpretation Comme nts NA (test code = 7250182785) 137 mmol/L 135-145 K (test code = 1937755154) 3.6 mmol/L 3.5-5.0 CL (test code = 6115717550) 99 mmol/L 98-108 CO2 TOTAL (test code = 2169142366) 25 mmol/L 23-31 AGAP (test code = 1118185391) 2-16 BUN (test code = 0511269612) 6 mg/dL 7-23 L GLUCOSE (test code = 2002268203) 88 mg/dL 70-110 CREATININE (test code = 6986225241) 0.55 mg/dL 0.60-1.25 L TOTAL BILI (test code = 5749592906) 0.8 mg/dL 0.1-1.1 CALCIUM (test code = 5698890122) 8.9 mg/dL 8.6-10.6 T PROTEIN (test code = 8834602035) 7.5 g/dL 6.3-8.2 ALBUMIN (test code = 6703077195) 4.8 g/dL 3.5-5.0 ALK PHOS (test code = 2033988039) 113 U/L 34-122 ALTv (test code = 1742-6) 84 U/L 5-50 H AST(SGOT) (test code = 6090310011) 107 U/L 13-40 H eGFR (test code = 2031301035) mL/min/1.73m2 LOUISE (test code = LOUISE) Association [...] imaging tests). Lab Interpretation (test code = 56586-1) [facility], [id number] 10:03:21* Test Item Value Reference Range Interpretation Comme nts LIPASE (test code = 5128698185) 193 U/L 0-220 Lab Interpretation (test cod e = 92185-5) [facility] [id number] 09:39:17* Test Item Value Reference Range Interpretation [...] g/dL 31.2-35.0 H RDW-SD (test code = 77209-7) 44.4 fL 38.5-51.6 RDW-CV (test code = 788-0) 11.9 % 12.1-15.4 L PLT (test code = 777-3) See_Comment [Automated messa ge] The system which generated this result transmitted reference range: 150 - 328 10*3/?L. The reference range was not used to interpret this result as normal/abnormal. MPV (test code = 72397-4) 9.2 fL 9.8-13.0 L NRBC/100 WBC (test code = 0397331025) See_Comment [Automated [employer] ssage] The system which generated this result transmitted reference range: 0.0 - 10.0 /100 WBCs. The reference range was not used to interpret this result as normal/abnormal. NRBC x10^3 (test code = 5542175733) <0.01 See_Comment [Automated messa ge] The system which generated this result transmitted reference range: 10*3/?L. The reference range was not used to interpret this result as normal/abnormal. GRAN MAT (NEUT) % (test code = 770-8) 69.9 % IMM GRAN % (test code = 1705869110) 1.50 % LYMPH % (test code = 736-9) 18.9 % MONO % (test code = 5905-5) 7.0 % EOS % (test code = 713-8) 1.9 % BASO % (test code = 706-2) 0.8 % GRAN MAT x10^3(ANC) (test code = 9901693169) 7.15 10*3/uL 1.99-6.95 H IMM GRAN x10^3 (test code = 7622173010) 0.15 10*3/uL 0.00-0.06 H LYMPH x10^3 (test code = 731-0) 1.93 10*3/uL 1.09-3.23 MONO x10^3 (test code = 742-7) 0.72 10*3/uL 0.36-1.02 EOS x10^3 (test code = 711-2) 0.19 10*3/uL 0.06-0.53 BASO x10^3 (test code = 704-7) 0.08 10*3/uL 0.01-0.09 Lab Interpretation (test code = 31346-7) Abnormal [facility] History and Physical Notes Date/Time Note Provider [...] during that time he also went to [place] with some friends and did cocaine denies [...] full understanding, Time discussed 3 minutes [place] [employer] was verified Disposition: Admit ICU [facility]"
--- NOTE | 2024-10-25 19:49 | ER ---
Nurse's Notes [facility] Name: Randy Briones Age: 54 yrs Sex: Male : 1970 Arrival Date: 10/25/2024 Time: 18:36 Bed Waiting Private MD: Diagnosis: ED Course: 10/25 18:38 Patient arrived in ED. mr 19:15 Patient's name was called from ER lobby. No response. Unable to locate patient. Will tm6 disposition as left without being seen by a provider. 19:28 Patient's name was called from ER lobby. No response. Unable to locate patient. Will tm6 disposition as left without being seen by a provider. 19:47 Patient's name was called from ER lobby. No response. Unable to locate patient. Will tm6 disposition as left without being seen by a provider. Administered Medications: No medications were administered Outcome: 19:47 Patient left the ED. tm6 Signatures: Bianca Canela, Paddy Reg Leland Guajardo, RN RN tm6
[2024-10-25] MEDS ORDERED: ALBUTEROL 2.5 MG/3 ML NEB SOL ONE (22:13)
[2024-10-25] MEDS ORDERED: METHYLPREDNISOLONE 125 MG INJ ONE (22:13)
[2024-10-25] MEDS ORDERED: NA CHLORIDE 0.9% 1,000 ML ONE (22:14)
[2024-10-25] MEDS ORDERED: LORazepam 2 MG/ML VIAL ONE (22:14)
[2024-10-25] MEDS ORDERED: IPRATROPIUM BROM 0.5MG/2.5ML ONE (22:15)
== END 2024-10-25 19:47 | disposition left against medical advice (07) ==
LOC: ER 18:36
DX: Z53.21 Procedure and treatment not carried out due to patient leaving prior to being seen by health care provider (principal)
CPT/HCPCS: J7613; J7644; J2919; J7030

== ENCOUNTER 2024-10-25 21:35 | Emergency (ER) | payer OTHER ==
--- OUTSIDE RECORDS SUMMARY | 2024-10-25 21:39 | XMS REPORT | Continuity of Care Document ---
Author Name Unknown Address [address] [facility] [address] [place] [address] [facility] Address [address] [facility] [address] [place] [address] Care Team Providers Care Setter Machine Name Role Phone Juan Daniel [facility] Primary Care Physician [phone] YARY CAMP Attending Clinician Unavailable YARY CAMP Attending Clinician Unavailable Yary Camp NP Attending Clinician [phone] JULIEN MARKS Attending Clinician Unavailable Blu Mcguire MD Attending Clinician [phone] Shay Stinson MD Attending Clinician [phone] Julien Marks DO Attending Clinician [phone] BLU MCGUIRE Attending Clinician Unavailable BLU MCGUIER Attending Clinician Unavailable WENDY BROWNLEE Attending Clinician UnaMYRNA Bernard Attending Clinician Unavailable DARIEN LOBO Attending Clinician Unavailable MINNA ORTA Attending Clinician Unavailab SHARATH Isbell Attending Clinician Unavailable TUNDE QUINTANILLA Attending Clinician Unavailable KEISHA DAVENPORT Attending Clinician Unauriah Davenport MD, Keisha Jackson Attending Clinician + Christina Victoria Attending Clinician [phone] JAC NAVARRO Attending Clinician Unavailable Jac Navarro MD Attending Clinician [phone] CAILIN ROWE Attending Clinician Unavailab QUENTIN Boothe Attending Clinician Unavailable Quentin Maciel DO Attending Clinician [phone] CHRISTY HOLLIDAY Attending Clinician Unavailable Christy Holliday MD Attending Clinician [phone] [facility]IA [facility] Attending Clinicia n Unavailable DENISE SUNG Attending Clinician Unavailable KARLEY ADAMS Attending Clinician Unavailable JULIEN MARKS Admitting Clinician Unavailable Julien Marks DO Admitting Clinician [phone] BLU MCGUIRE Admitting Clinician Unavailable JAC NAVARRO Admitting Clinician Unavailable QUENTIN MACIEL Admitting Clinician Unavailable CHRISTY HOLLIDAY Admitting Clinician Unavailable Payers Payer Name Policy Type Policy Number Effective Date Expirati on Date Source HIM [facility] O [id number] 2024 00:00:00 [facility] VINOD LEE COPAY FOCUS 9 [id number] 2024 00:00:00 [employer] [id number] 2023 00:00:00 [employer] 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 ON 9 [id number] 2023 00:00:00 Problems Condition Name Condition Details [...] use Smokes tobacco daily [facility] Alcoholic beverage intake 2024-07-23 00:00:00 2024-07-23 00:00:00 4.29 /d [facility] History of Social function 2024-07-19 00:00:00 2024-07-19 00:00:00 [facility] Tobacco use and exposure 2024-07-18 00:00:00 2024-07-18 00:00:00 User of smokeless tobacco [facility] Tobacco Comment 2024-07-18 00:00:00 2024-07-18 00:00:00 trying to quit [facility] Alcohol Comment 2024-07-18 00:00:00 2024-07-18 00:00:00 2 1/2 cases daily [facility] Alcohol intake 2024-02-08 00:00:00 2024-02-08 00:00:00 4.29 /d [facility] Exposure to SARS-CoV-2 (event) 2022-10-04 00:00:00 2022-10-14 10:25:00 Not sure [facility] Sex assigned at 1970 00:00:00 1970 00:00:00 [facility] Smoking Status Start Date Stop Date Source Smokes tobacco daily 2024-07-18 00:00:00 [facility] Medications Ordered Medication Name Filled Medication Name [...] on Thu07/21/24 at 0300, Routine [facility] levalbutero l (XOPENEX) nebulizer solution 0.63 mg 07-20 19:00: 00 Yes .63mg 0.63 mg, Inhalation , TID, First dose on Thu07/20/24 at 1400, Until Discontinu ed, [facility] spironolact one (ALDACTONE) tablet 25 mg 07-20 14:00: 00 Yes 25mg 25 mg, Oral, DAILY, First dose on Thu07/20/24 at 0900, Until Discontinu ed, [facility] Potassium Bicarb-Citr ic Acid (EFFER-K) effervescen t tablet 40 mEq 07-20 13:00: 00 07-21 12:59 :00 No 40meq 40 mEq, Oral, BID, 2 doses, First dose on Thu07/20/24 at 0800, Last dose on Thu07/20/24 at 2000, Routine [facility] amLODIPine (NORVASC) tablet 10 mg 07-19 22:30: 00 Yes 10mg 10 mg, Oral, DAILY, First dose on Thu07/19/24 at 1730, Until Discontinu ed, Routine [facility] hydralAZINE (APRESOLINE ) injection 10 mg 07-19 22:16: 33 Yes 10mg 10 mg, Slow IV Push, Q6HPRN, Starting on Thu07/19/24 at 1716, Until Discontinu ed, Routine, DBP=>100; SBP=>160, For SBP > [address] [facility] pantoprazol e (PROTONIX) injection 40 mg 07-19 21:30: 00 Yes 40mg 40 mg, Slow IV Push, Q24H, First dose on Thu07/19/24 at 1630, Until Discontinu ed [facility] bisacodyL (DULCOLAX) suppository 10 mg 07-19 21:15: 00 07-19 21:04 :00 No 10mg 10 mg, Rectal, ONCE, 1 dose, On Thu07/19/24 at 1615, Routine [facility] diphenhydrA MINE:lidoca ine 2% viscous:maa lox 1:1:1 ([facility]) oral suspension 15 mL 07-19 21:15: 00 07-19 21:02 :00 No 15mL 15 mL, Oral, ONCE, 1 dose, On Thu07/19/24 at 1615, [facility] LORazepam (ATIVAN) injection 1 mg 07-19 20:24: 20 Yes 1mg 1 mg, Slow IV Push, Q2HPRN, Starting on Thu07/19/24 at 1524, Until Discontinu ed, Routine, withdrawl [facility] predniSONE (DELTASONE) tablet 10 mg 07-19 14:00: 00 Yes 10mg 10 mg, Oral, DAILY, First dose on Thu07/19/24 at 0900, Until Discontinu ed, Routine [facility] HYDROcodone -acetaminop hen (NORCO) 10-325 mg tablet 1 tablet 07-19 12:53: 33 Yes 1{tbl} 1 tablet, Oral, Q6HPRN, Starting on Thu07/19/24 at 0753, Until Discontinu ed, Routine, Pain (scale 4-6) [facility] budesonide- formoteroL (SYMBICORT) 160-4.5 mcg/actuati on inhaler 2 Puff 07-19 01:00: 00 Yes 2{puff} 2 Puff, Inhalation , BID, First dose on Thu07/18/24 at 2000, Until Discontinu ed, [facility] ipratropium -albuteroL (DUONEB) 0.5 mg-3 mg(2.5 mg base)/3 mL nebulizer solution 3 mL 07-19 01:00: 00 07-20 16:26 :23 No 3mL 3 mL, Inhalation , QID, First dose on Thu07/18/24 at 2000, Until Discontinu ed, Routine [facility] D5W 0.45% NaCl (1/2NS) 1 L + KCL 20 mEq 07-18 22:30: 00 Yes IV Infusion, at 75 mL/hr, CONTINUOUS , Starting on Thu07/18/24 at 1730, Until Discontinu ed, Routine [facility] ampicillin- sulbactam (UNASYN) 3 g in [...] at 1415, Until Discontinu ed, Routine [facility] dexMEDEtomi dine 200 mcg in 0.9 [...] ONCE, 1 dose, On Thu07/18/24 at 0845, [facility] cefTRIAXone (ROCEPHIN) 1,000 mg [...] ONCE, 1 dose, On Thu07/18/24 at 0830, [facility] aspirin tablet 325 mg 07-18 13:15: 00 07-18 12:37 :00 No 325mg 325 mg, Oral, ONCE, 1 dose, On Thu07/18/24 at 0815, [facility] NaCl 0.9% (NS) bolus infusion 1,000 mL 07-18 13:00: 00 07-18 14:57 :00 No 1000mL at 999 mL/hr, 1,000 mL, IV Infusion, ONCE, 1 dose, On Thu07/18/24 at 0800, [facility] LORazepam (ATIVAN) injection 1 mg 07-18 12:45: 00 07-18 12:46 :00 No 1mg 1 mg, Slow IV Push, ONCE, 1 dose, On Thu07/18/24 at 0745, [facility] famotidine (PEPCID (PF)) injection 20 mg 07-18 12:15: 00 07-18 12:37 :00 No 20mg 20 mg, Slow IV Push, ONCE, 1 dose, On Thu07/18/24 at 0715, [facility] ondansetron (ZOFRAN (PF)) injection 8 mg 07-18 12:15: 00 07-18 12:37 :00 No 8mg 8 mg, Slow IV Push, ONCE, 1 dose, On Thu07/18/24 at 0715, [facility] albuterol sulfate HFA 90 [...] 2 % ointment 05-24 00:00: 00 Yes [id number] 6 Apply to area(s) 3 (three) times daily. [facility] cephALEXin 500 mg tablet 05-24 00:00: 00 06-01 04:59 :00 No [id number] 6 500mg Take 1 tablet by mouth [...] 02-07 22:30: 00 02-07 22:30 :00 No [id number] 100mL 100 mL, Intravenou s, ONCE, 1 [...] ONCE, 1 dose, On Thu02/08/24 at 1615, [facility] magnesium sulfate in water [...] ONCE, 1 dose, On Thu01/14/24 at 0715, [facility] ipratropium -albuteroL (DUONEB) 0.5 mg-3 mg(2.5 mg base)/3 mL nebulizer solution 3 mL 01-13 13:00: 00 01-13 11:53 :00 No 3mL 3 mL, Inhalation , ONCE NOW, 1 dose, On Thu01/14/24 at 0700, [facility] ondansetron (ZOFRAN (PF)) injection 4 mg 01-13 11:30: 00 01-13 11:37 :00 No 4mg 4 mg, Slow IV Push, ONCE, 1 dose, On Thu01/14/24 at 0530, [facility] morpHINE (4 mg/mL) injection 4 mg 01-13 11:30: 00 01-13 11:37 :00 No 4mg 4 mg, Slow IV Push, ONCE, 1 dose, On Thu01/14/24 at 0530, [facility] azithromyci n (ZITHROMAX Z-PORTER) 250 mg tablet 01-13 00:00: 00 02-16 00:00 :00 No [id number] Take 500 mg on day 1 then 250 mg on days 2-5 [facility] predniSONE 20 mg tablet 01-13 00:00: 00 02-16 00:00 :00 No [id number] Take 1 po tid x 2 days, [...] ONCE, 1 dose, On Thu12/22/23 at 2230, [facility] maalox:diph enhydrAMINE :lidocaine 2 [...] ONCE, 1 dose, On Thu12/22/23 at 2215, [facility] HYDROcodone -acetaminop hen (NORCO) [...] 12-22 03:30: 00 12-22 03:30 :00 No [id number] 100mL 100 mL, Intravenou s, ONCE, 1 [...] 25 mg suppository 12-22 00:00: 00 Yes [id number] 25mg Insert 1 Suppositor y into rectum 2 (two) times daily as needed for Rectal itching/pa in. [facility] ondansetron 4 mg disintegrat ing tablet 12-22 00:00: 00 02-16 00:00 :00 No [id number] 4mg Take 1 tablet by mouth every 8 (eight) hours as needed for Nausea and Vomiting (N/V). [facility] amoxicillin -clavulanat e 875-125 mg per tablet 12-22 00:00: 00 01-02 05:59 :00 No [id number] 1{tbl} Take 1 tablet by mouth every [...] 00:00: 00 Yes Tunde Haro AMOX/K CLAV [id number] 5068-0 3-03 00:00: 00 Yes Tunde Haro iopamidol (ISOVUE 370-500 mL) injection 70 mL 2021-11- 18:30: 00 10-14 18:30 :00 No [id number] 70mL 70 mL, Intravenou s, ONCE, 1 [...] 2021-11 00:00: 00 02-16 00:00 :00 No [id number] 750mg Take 1 tablet by mouth every [...] 37.5-25 mg tablet 02-20 00:00: 00 Yes [id number] 1{tbl} Take 1 tablet by mouth daily. [facility] albuterol 90 mcg/actuati on inhaler 02-20 00:00: 00 07-20 00:00 :00 No [id number] 2{puff} Inhale 2 Puffs every 4 (four) hours as needed for Wheezing or Shortness of Breath. [facility] chlordiazeP OXIDE 25 mg capsule 02-20 00:00: 00 07-20 00:00 :00 No [id number] 25mg Take 1 capsule by mouth every 6 (six) hours as needed for Anxiety, Agitation, Heart Rate => 100 or Detox. [facility] predniSONE 10 mg tablet 02-20 00:00: 00 02-16 00:00 :00 No [id number] TAKE ONE TABLET BY MOUTH DAILY [facility] albuterol 2.5 mg /3 mL (0.083 %) nebulizer solution 02-20 00:00: 00 02-16 00:00 :00 No [id number] 2.5mg Inhale 3 mL every 4 (four) hours. May also nebulize one extra every 6 hours. [facility] budesonide- formoteroL 160-4.5 mcg/actuati on inhaler 02-20 00:00: 00 02-16 00:00 :00 No [id number] 2{puff} Inhale 2 Puffs 2 (two) times [...] VACCINE 2021-02-03 00:00:00 Completed [facility] SARS-COV-2 COVID-19 PFIZER VACCINE 2021-02-03 00:00:00 Completed [facility] SARS-COV-2 COVID-19 PFIZER VACCINE 2021-02-03 00:00:00 Completed [facility] SARS-COV-2 COVID-19 PFIZER VACCINE 2021-01-13 00:00:00 Completed [facility] SARS-COV-2 COVID-19 PFIZER VACCINE 2021-01-13 00:00:00 Completed [facility] SARS-COV-2 COVID-19 PFIZER VACCINE 2021-01-13 00:00:00 Completed [facility] Pneumococcal Polysaccharide, PPSV23 (PNEUMOVAX) 2018-03-26 00:00:00 Completed [facility] Influenza Virus Vaccine Quad IM 3+ YRS 2018-03-26 00:00:00 Completed [facility] Pneumococcal Polysaccharide, PPSV23 (PNEUMOVAX) 2018-03-26 00:00:00 Completed [facility] Influenza Virus Vaccine Quad IM 3+ YRS 2018-03-26 00:00:00 Completed [facility] Pneumococcal Polysaccharide, PPSV23 (PNEUMOVAX) 2018-03-26 00:00:00 Completed [facility] Influenza Virus Vaccine Quad IM 3+ YRS 2018-03-26 00:00:00 Completed [facility] Pneumococcal Polysaccharide, PPSV23 (PNEUMOVAX) Unknown Completed [facility] Influenza Virus Vaccine Quad IM 3+ YRS Unknown Completed [facility] SARS-COV-2 COVID-19 PFIZER VACCINE Unknown Completed [facility] Pneumococcal Polysaccharide, PPSV23 (PNEUMOVAX) Unknown Completed [facility] Influenza Virus Vaccine Quad IM 3+ YRS Unknown Completed [facility] SARS-COV-2 COVID-19 PFIZER VACCINE Unknown Completed [facility] Pneumococcal Polysaccharide, PPSV23 (PNEUMOVAX) Unknown Completed [facility] Influenza Virus Vaccine Quad IM 3+ YRS Unknown Completed [facility] SARS-COV-2 COVID-19 PFIZER VACCINE Unknown Completed [facility] Pneumococcal Polysaccharide, PPSV23 (PNEUMOVAX) Unknown Completed [facility] Influenza Virus Vaccine Quad IM 3+ YRS Unknown Completed [facility] SARS-COV-2 COVID-19 PFIZER VACCINE Unknown Completed [facility] Pneumococcal Polysaccharide, PPSV23 (PNEUMOVAX) Unknown Completed [facility] Influenza Virus Vaccine Quad IM 3+ YRS Unknown Completed [facility] SARS-COV-2 COVID-19 PFIZER VACCINE Unknown Completed [facility] Pneumococcal Polysaccharide, PPSV23 (PNEUMOVAX) Unknown Completed [facility] Influenza Virus Vaccine Quad IM 3+ YRS Unknown Completed [facility] SARS-COV-2 COVID-19 PFIZER VACCINE Unknown Completed [facility] Pneumococcal Polysaccharide, PPSV23 (PNEUMOVAX) Unknown Completed [facility] Influenza Virus Vaccine Quad IM 3+ YRS Unknown Completed [facility] SARS-COV-2 COVID-19 PFIZER VACCINE Unknown Completed [facility] Pneumococcal Polysaccharide, PPSV23 (PNEUMOVAX) Unknown Completed [facility] Influenza Virus Vaccine Quad IM 3+ YRS Unknown Completed [facility] SARS-COV-2 COVID-19 PFIZER VACCINE Unknown Completed [facility] Pneumococcal Polysaccharide, PPSV23 (PNEUMOVAX) Unknown Completed [facility] Influenza Virus Vaccine Quad IM 3+ YRS Unknown Completed [facility] SARS-COV-2 COVID-19 PFIZER VACCINE Unknown Completed [facility] Pneumococcal Polysaccharide, PPSV23 (PNEUMOVAX) Unknown Completed [facility] Influenza Virus Vaccine Quad IM 3+ YRS Unknown Completed [facility] SARS-COV-2 COVID-19 PFIZER VACCINE Unknown Completed [facility] Pneumococcal Polysaccharide, PPSV23 (PNEUMOVAX) Unknown Completed [facility] Influenza Virus Vaccine Quad IM 3+ YRS Unknown Completed [facility] SARS-COV-2 COVID-19 PFIZER VACCINE Unknown Completed [facility] Pneumococcal Polysaccharide, PPSV23 (PNEUMOVAX) Unknown Completed [facility] Influenza Virus Vaccine Quad IM 3+ YRS Unknown Completed [facility] SARS-COV-2 COVID-19 PFIZER VACCINE Unknown Completed [facility] Vital Signs Vital Name Observation Time Observation Value Comments S ource Systolic blood pressure 2024-07-23 18:00:00 175 mm[Hg] [facility] Diastolic blood pressure 2024-07-23 18:00:00 109 mm[Hg] [facility] Heart rate 2024-07-23 18:00:00 87 /min [facility] Respiratory rate 2024-07-23 18:00:00 16 /min [facility] Oxygen saturation in Arterial blood by Pulse oximetry 2024-07-23 18:00:00 100 /min [facility] Body temperature 2024-07-23 16:15:00 36.61 Debbie [facility] Body height 2024-07-23 16:15:00 162.6 cm [facility] Body weight 2024-07-23 16:15:00 123.832 kg [facility] BMI 2024-07-23 16:15:00 46.86 kg/m2 [facility] Heart rate 2024-07-20 19:15:00 116 /min [facility] Respiratory rate 2024-07-20 19:15:00 10 /min [facility] Oxygen saturation in Arterial blood by Pulse oximetry 2024-07-20 19:15:00 100 /min [facility] Systolic blood pressure 2024-07-20 17:00:00 149 mm[Hg] [facility] Diastolic blood pressure 2024-07-20 17:00:00 131 mm[Hg] [facility] Body temperature 2024-07-20 16:00:00 37.06 Debbie [facility] Body weight 2024-07-20 08:00:00 82.5 kg [facility] BMI 2024-07-20 08:00:00 31.22 kg/m2 [facility] Body height 2024-07-18 14:23:00 162.6 cm [facility] Systolic blood pressure 2024-07-18 01:00:00 176 mm[Hg] [facility] Diastolic blood pressure 2024-07-18 01:00:00 88 mm[Hg] [facility] Heart rate 2024-07-18 01:00:00 113 /min [facility] Respiratory rate 2024-07-18 01:00:00 18 /min [facility] Oxygen saturation in Arterial blood by Pulse oximetry 2024-07-18 01:00:00 95 /min [facility] Body temperature 2024-07-18 00:52:00 37.33 Debbie [facility] Body height 2024-07-18 00:52:00 162.6 cm [facility] Body weight 2024-07-18 00:52:00 122.925 kg [facility] BMI 2024-07-18 00:52:00 46.52 kg/m2 [facility] Systolic blood pressure 2024-05-24 13:51:42 157 mm[Hg] [facility] Diastolic blood pressure 2024-05-24 13:51:42 93 mm[Hg] [facility] Heart rate 2024-05-24 13:51:42 98 /min [facility] Respiratory rate 2024-05-24 13:51:42 18 /min [facility] Oxygen saturation in Arterial blood by Pulse oximetry 2024-05-24 13:51:42 97 /min [facility] Body temperature 2024-05-24 13:36:00 36.78 Debbie [facility] Body height 2024-05-24 13:36:00 162.6 cm [facility] Body weight 2024-05-24 13:36:00 78.472 kg [facility] BMI 2024-05-24 13:36:00 29.70 kg/m2 [facility] Systolic blood pressure 2024-02-18 01:57:00 134 mm[Hg] [facility] Diastolic blood pressure 2024-02-18 01:57:00 94 mm[Hg] [facility] Body height 2024-02-18 01:57:00 162.6 cm [facility] Body weight 2024-02-18 01:57:00 79.379 kg [facility] BMI 2024-02-18 01:57:00 30.04 kg/m2 [facility] Heart rate 2024-02-18 01:53:00 110 /min [facility] Body temperature 2024-02-18 01:53:00 36.61 Debbie [facility] Respiratory rate 2024-02-18 01:53:00 24 /min [facility] Oxygen saturation in Arterial blood by Pulse oximetry 2024-02-18 01:53:00 93 /min [facility] Systolic blood pressure 2024-02-09 01:54:05 150 mm[Hg] [facility] Diastolic blood pressure 2024-02-09 01:54:05 91 mm[Hg] [facility] Heart rate 2024-02-09 01:54:05 87 /min [facility] Respiratory rate 2024-02-09 01:54:05 17 /min [facility] Oxygen saturation in Arterial blood by Pulse oximetry 2024-02-09 01:54:05 93 /min [facility] Body temperature 2024-02-09 01:45:00 36.67 Debbie [facility] Body height 2024-02-09 01:45:00 162.6 cm [facility] Body weight 2024-02-09 01:45:00 81.194 kg [facility] BMI 2024-02-09 01:45:00 30.73 kg/m2 [facility] Respiratory rate 2024-02-08 21:00:00 18 /min [facility] Oxygen saturation in Arterial blood by Pulse oximetry 2024-02-08 21:00:00 96 /min [facility] Systolic blood pressure 2024-02-08 20:27:00 164 mm[Hg] [facility] Diastolic blood pressure 2024-02-08 20:27:00 90 mm[Hg] [facility] Heart rate 2024-02-08 20:27:00 83 /min [facility] Body temperature 2024-02-08 19:12:00 36.83 Debbie [facility] Body height 2024-02-08 19:12:00 162.6 cm [facility] Body weight 2024-02-08 19:12:00 81.194 kg [facility] BMI 2024-02-08 19:12:00 30.73 kg/m2 [facility] Heart rate 2024-01-14 12:15:00 98 /min [facility] Body temperature 2024-01-14 12:15:00 36.56 Debbie [facility] Respiratory rate 2024-01-14 12:15:00 14 /min [facility] Oxygen saturation in Arterial blood by Pulse oximetry 2024-01-14 12:15:00 95 /min [facility] Systolic blood pressure 2024-01-14 12:00:00 140 mm[Hg] [facility] Diastolic blood pressure 2024-01-14 12:00:00 90 mm[Hg] [facility] Body height 2024-01-14 10:51:00 162.6 cm [facility] Body weight 2024-01-14 10:51:00 81.194 kg [facility] BMI 2024-01-14 10:51:00 30.73 kg/m2 [facility] Systolic blood pressure 2023-12-23 05:02:00 133 mm[Hg] [facility] Diastolic blood pressure 2023-12-23 05:02:00 84 mm[Hg] [facility] Heart rate 2023-12-23 05:02:00 78 /min [facility] Body temperature 2023-12-23 05:02:00 36.17 Debbie [facility] Respiratory rate 2023-12-23 05:02:00 17 /min [facility] Oxygen saturation in Arterial blood by Pulse oximetry 2023-12-23 05:02:00 91 /min [facility] Body height 2023-12-23 03:45:00 162.6 cm [facility] Body weight 2023-12-23 03:45:00 81.194 kg [facility] BMI 2023-12-23 03:45:00 30.73 kg/m2 [facility] Systolic blood pressure 2023-12-22 02:08:00 143 mm[Hg] [facility] Diastolic blood pressure 2023-12-22 02:08:00 92 mm[Hg] [facility] Heart rate 2023-12-22 02:08:00 81 /min [facility] Respiratory rate 2023-12-22 02:08:00 13 /min [facility] Oxygen saturation in Arterial blood by Pulse oximetry 2023-12-22 02:08:00 95 /min [facility] Body temperature 2023-12-22 01:33:00 36.72 Debbie [facility] Body height 2023-12-22 01:33:00 162.6 cm [facility] Body weight 2023-12-22 01:33:00 81.239 kg [facility] BMI 2023-12-22 01:33:00 30.74 kg/m2 [facility] Systolic blood pressure 2023-11-11 02:00:00 127 mm[Hg] [facility] Diastolic blood pressure 2023-11-11 02:00:00 87 mm[Hg] [facility] Heart rate 2023-11-11 02:00:00 79 /min [facility] Respiratory rate 2023-11-11 02:00:00 20 /min [facility] Oxygen saturation in Arterial blood by Pulse oximetry 2023-11-11 02:00:00 98 /min [facility] Body temperature 2023-11-11 01:31:00 36.28 Debbie [facility] Body height 2023-11-11 01:31:00 162.6 cm [facility] Body weight 2023-11-11 01:31:00 79.379 kg [facility] BMI 2023-11-11 01:31:00 30.04 kg/m2 [facility] [facility] Systolic blood pressure 2023-10-27 06:54:00 133 mm[Hg] [facility] Diastolic blood pressure 2023-10-27 06:54:00 94 mm[Hg] [facility] Heart rate 2023-10-27 06:54:00 95 /min [facility] Body temperature 2023-10-27 06:54:00 36.44 Debbie [facility] Respiratory rate 2023-10-27 06:54:00 22 /min [facility] Body height 2023-10-27 06:54:00 162.6 cm [facility] Body weight 2023-10-27 06:54:00 78.472 kg [facility] BMI 2023-10-27 06:54:00 29.70 kg/m2 [facility] Oxygen saturation in Arterial blood by Pulse oximetry 2023-10-27 06:54:00 94 /min [facility] Systolic blood pressure 2022-10-14 19:43:00 111 mm[Hg] [facility] Diastolic blood pressure 2022-10-14 19:43:00 74 mm[Hg] [facility] Heart rate 2022-10-14 19:43:00 98 /min [facility] Body temperature 2022-10-14 19:43:00 36.39 Debbie [facility] Respiratory rate 2022-10-14 19:43:00 22 /min [facility] Oxygen saturation in Arterial blood by Pulse oximetry 2022-10-14 19:43:00 94 /min [facility] Body height 2022-10-14 16:13:00 162.6 cm [facility] Body weight 2022-10-14 16:13:00 81.647 kg [facility] BMI 2022-10-14 16:13:00 30.90 kg/m2 [facility] Systolic blood pressure 2022-03-12 10:13:00 119 mm[Hg] [facility] Diastolic blood pressure 2022-03-12 10:13:00 75 mm[Hg] [facility] Heart rate 2022-03-12 10:13:00 105 /min [facility] Body temperature 2022-03-12 10:13:00 37.28 Debbie [facility] Respiratory rate 2022-03-12 10:13:00 19 /min [facility] Body height 2022-03-12 10:13:00 162.6 cm [facility] Body weight 2022-03-12 10:13:00 99.791 kg [facility] BMI 2022-03-12 10:13:00 37.76 kg/m2 [facility] Oxygen saturation in Arterial blood by Pulse oximetry 2022-03-12 10:13:00 96 /min [facility] Systolic blood pressure 2022-02-20 11:57:00 155 mm[Hg] [facility] Diastolic blood pressure 2022-02-20 11:57:00 88 mm[Hg] [facility] Heart rate 2022-02-20 11:57:00 105 /min [facility] Respiratory rate 2022-02-20 11:57:00 18 /min [facility] Oxygen saturation in Arterial blood by Pulse oximetry 2022-02-20 11:57:00 100 /min [facility] Body temperature 2022-02-20 09:25:00 37 Debbie [facility] Body height 2022-02-20 09:25:00 162.6 cm [facility] Body weight 2022-02-20 09:25:00 96.163 kg [facility] BMI 2022-02-20 09:25:00 36.39 kg/m2 [facility] Respiratory Rate 2024-05-26 13:39:00 16.00 /min [...] Source EKG-12 LEAD 2024-07-23 19:32:17 Yary Camp [facility] LACTIC ACID WHOLE BLOOD 2024-07-23 18:23:00 Mike Camp [facility] LIPASE 2024-07-23 17:05:00 Kathrin Yary G [facility] TROPONIN I 2024-07-23 17:05:00 Kathrin Yary G [facility] COMP. METABOLIC PANEL ([id number]) 2024-07-23 17:05:00 Yary Camp [facility] ETHANOL 2024-07-23 17:05:00 Yary Camp [facility] CBC WITH DIFF 2024-07-23 17:05:00 Yary Camp [facility] N-TERMINAL PRO-BNP 2024-07-23 17:05:00 Yary Camp [facility] HB ECG ROUTINE & RHYTHM STRIP 2024-07-20 14:13:43 Julien Marks [facility] MAGNESIUM 2024-07-20 08:21:00 Julien Marks [facility] BASIC METABOLIC PANEL (NA, K, CL, CO2, GLUCOSE, BUN, CREATININE, CA) 2024-07-20 08:21:00 Julien Marks [facility] CBC WITH DIFF 2024-07-20 08:21:00 Julien Marks [facility] MAGNESIUM 2024-07-19 09:24:00 Julien Marks [facility] BASIC METABOLIC PANEL (NA, K, CL, CO2, GLUCOSE, BUN, CREATININE, CA) 2024-07-19 09:24:00 Julien Marks [facility] CBC WITH DIFF 2024-07-19 09:24:00 Julien Marks [facility] LEGIONELLA AND STREPTOCOCCUS PNEUMONIAE URINARY ANTIGENS 2024-07-19 02:12:00 Julien Marks [facility] PROCALCITONIN 2024-07-18 21:39:00 Julien Marks [facility] LACTIC ACID WHOLE BLOOD 2024-07-18 15:51:00 Alfred Marks [facility] URINE DRUG (IMMUNOASSAY) - COMPREHENSIVE DRUG SCREEN W/O REFLEX 2024-07-18 15:31:00 Blu Mcguire [facility] MRSA / MSSA SCREEN BY PCR, NARES 2024-07-18 14:47:00 Julien Marks [facility] CT THORAX WO CONTRAST 2024-07-18 14:42:00 Rajinder Marks [facility] BLOOD CULTURE SCREEN 2024-07-18 13:01:00 Shay Stinson [facility] LACTIC ACID WHOLE BLOOD 2024-07-18 13:01:00 Facundo Stinson [facility] INFLUENZA A/B RSV COVID NAAT 2024-07-18 12:49:00 Shay Stinson [facility] LAB ONLY COVID INTERPRETATION 2024-07-18 12:49:00 Shay Stinson [facility] COMP. METABOLIC PANEL ([id number]) 2024-07-18 12:21:00 Blu Mcguire [facility] CRITICAL CARE 2024-07-18 12:12:28 Shay Stinson [facility] XR CHEST 1 VW 2024-07-18 11:40:27 Blu Mcguire [facility] TROPONIN I 2024-07-18 11:18:00 Blu Mcguire [facility] ETHANOL 2024-07-18 11:18:00 Blu Mcguire [facility] CBC WITH DIFF 2024-07-18 11:18:00 Blu Mcguire [facility] N-TERMINAL PRO-BNP 2024-07-18 11:18:00 Blu Mcguire [facility] HB ECG ROUTINE & RHYTHM STRIP 2024-07-18 11:10:41 Blu Mcguire [facility] XR CHEST 1 VW 2024-07-18 01:34:48 Blu Mcguire [facility] TROPONIN I 2024-07-18 00:56:00 [facility] COMP. METABOLIC PANEL (06059) 2024-07-18 00:56:00 Blu Mcguire [facility] ETHANOL 2024-07-18 00:56:00 Blu Mcguire [facility] CBC WITH DIFF 2024-07-18 00:56:00 Blu Mcguire [facility] N-TERMINAL PRO-BNP 2024-07-18 00:56:00 Blu Mcguire [facility] AC PANEL 20 + LACTIC ACID 2024-02-08 20:47:00 Christina Villarreal [facility] XR CHEST 1 VW 2024-02-08 19:47:00 Christina Villarreal [facility] URINALYSIS 2024-02-08 19:36:00 Christina Villarreal [facility] MAGNESIUM 2024-02-08 19:25:00 Christina [facility]real [facility] TROPONIN I 2024-02-08 19:25:00 Christina [facility]real [facility] COMP. METABOLIC PANEL ([id number]) 2024-02-08 19:25:00 Christina Villarreal [facility] ETHANOL 2024-02-08 19:25:00 Christina Villarreal [facility] CBC WITH DIFF 2024-02-08 19:25:00 Christina Villarreal [facility] N-TERMINAL PRO-BNP 2024-02-08 19:25:00 Christina Villarreal [facility] EKG-12 LEAD 2024-01-14 12:00:51 Jac Navarro [facility] LIPASE 2024-01-14 11:11:00 Jac Navarro [facility] TROPONIN I 2024-01-14 11:11:00 Jac Navarro [facility] COMP. METABOLIC PANEL ([id number]) 2024-01-14 11:11:00 Jac Navarro [facility] ETHANOL 2024-01-14 11:11:00 Jac Navarro [facility] CBC WITH DIFF 2024-01-14 11:11:00 [facility] N-TERMINAL PRO-BNP 2024-01-14 11:11:00 Jac Navarro [facility] COVID-19 (ID NOW RAPID TESTING) 2024-01-14 11:11:00 Jac Navarro [facility] CONSENT/REFUSAL FOR DIAGNOSIS AND TREATMENT 2024-01-14 10:44:32 Doctor Unassigned, [place] [facility] LIPASE 2023-12-23 04:17:00 Cailin Rowe Un [facility] COMP. METABOLIC PANEL ([id number]) 2023-12-23 04:17:00 Cailin Rowe [facility] CBC WITH DIFF 2023-12-23 04:17:00 [facility]23-12-23 04:17:00 Cailin Rowe Un [facility] CONSENT/REFUSAL FOR DIAGNOSIS AND TREATMENT 2023-12-23 03:40:32 Doctor Unassigned, [place] [facility] CT ABDOMEN PELVIS W CONTRAST 2023-12-22 02:31:05 Quentin Maciel [facility] LIPASE 2023-12-22 01:58:00 Quentin Maciel [facility] COMP. METABOLIC PANEL (81381) 2023-12-22 01:58:00 Quentin Maciel [facility] ETHANOL 2023-12-22 01:58:00 Quentin Maciel [facility] CBC WITH DIFF 2023-12-22 01:58:00 Quentin Maciel [facility] PROTHROMBIN TIME / INR 2023-12-22 01:58:00 Wali Maciel [facility] URINALYSIS 2023-12-22 01:58:00 Quentin [facility] CONSENT/REFUSAL FOR DIAGNOSIS AND TREATMENT 2023-12-22 01:19:14 Doctor Unassigned, [place] [facility] NOTICE OF PRIVACY PRACTICES 2023-11-11 01:24:24 Doctor Unassigned, [place] [facility] CONSENT/REFUSAL FOR DIAGNOSIS AND TREATMENT 2023-11-11 01:23:54 Doctor Unassigned, [place] [facility] COVID-19 (ID NOW RAPID TESTING) 2023-10-27 07:09:00 Jac Navarro [facility] NOTICE OF PRIVACY PRACTICES 2023-10-27 06:49:48 Doctor Unassigned, [place] [facility] CONSENT/REFUSAL FOR DIAGNOSIS AND TREATMENT 2023-10-27 06:47:40 Doctor Unassigned, [place] [facility] CT ABDOMEN PELVIS W CONTRAST 2022-10-14 17:33:00 Quentin Maciel [facility] XR CHEST 1 VW 2022-10-14 17:10:37 Singer [facility] TROPONIN I 2022-10-14 16:37:00 Quentin [facility]iel [facility] COMP. METABOLIC PANEL ([id number]) 2022-10-14 16:37:00 [facility] 2022-10-14 16:37:00 Quentin Maciel [facility] PROTHROMBIN TIME / INR 2022-10-14 16:37:00 [facility] 2022-10-14 16:37:00 Quentin [facility]iel [facility] N-TERMINAL PRO-BNP 2022-10-14 16:37:00 Quentin Maciel [facility] CONSENT/REFUSAL FOR DIAGNOSIS AND TREATMENT 2022-10-14 15:56:36 Doctor Unassigned, [place] [facility] CONSENT/REFUSAL FOR DIAGNOSIS AND TREATMENT 2022-03-12 10:03:12 Doctor Unassigned, [place] [facility] XR CHEST 1 VW 2022-02-20 09:59:00 Christy Holliday [facility] LIPASE 2022-02-20 09:30:00 Christy Holliday [facility] TROPONIN I 2022-02-20 09:30:00 Christy Holliday [facility] COMP. METABOLIC PANEL ([id number]) 2022-02-20 09:30:00 Chritsy Holliday [facility] CBC WITH DIFF 2022-02-20 09:30:00 Christy Holliday [facility] N-TERMINAL PRO-BNP 2022-02-20 09:30:00 Christy Holliday [facility] NOTICE OF PRIVACY PRACTICES 2022-02-20 09:15:02 Doctor Unassigned, [place] [facility] CONSENT/REFUSAL FOR DIAGNOSIS AND TREATMENT 2022-02-20 09:14:47 Doctor Unassigned, [place] [facility] Encounters Start Date/Time End Date/Time Encounter Type Admission Type Attending [facility] Facility Care Department Encounter ID Source 2024-07-23 11:09:00 2024-07-23 13:55:00 Emergency X YARY CAMP PAMALA [facility] ERT [id number] [facility] 2024-07-23 11:09:00 2024-07-23 13:55:00 Emergency Yary Camp [facility] 1.2.840.114 350.1.13.10 4.2.7.2.686 [id number] [facility] 2024-07-18 06:09:00 2024-07-20 15:00:00 Inpatient X JULIEN MARKS [facility] JOÃO [id number] [facility] 2024-07-18 06:09:00 2024-07-20 15:00:00 Hospital Encounter Blu Mcguire [facility], David [facility] 1.2.840.114 350.1.13.10 4.2.7.2.686 [id number] [facility] 2024-07-17 19:49:00 2024-07-17 21:02:00 Emergency X LAUREEN MCGUIREBLU SANDERS [facility] ERT [id number] [facility] 2024-07-17 19:49:00 2024-07-17 21:02:00 Emergency Maynor Blu [facility] 1.2.840.114 350.1.13.10 4.2.7.2.686 [id number] [facility] 2024-06-06 10:15:00 2024-06-06 10:15:00 Outpatient WENDY BROWNLEE [id number] Maria Elena Alcantara 2024-05-26 13:21:21 2024-05-26 13:21:21 Outpatient SFA SFA [id number] Tunde Haro 2024-05-26 00:00:00 2024-05-26 00:00:[address] [facility] [id number] Tunde Haro 2024-05-24 08:36:00 2024-05-24 09:39:00 Emergency X MYRNA SANDHU [facility] ERT [id number] [facility] 2024-05-24 08:36:00 2024-05-24 09:39:00 Emergency Mil Myrna [facility] ..840.114 350.1.13.10 4.2.7.2.686 [id number] [facility] 2024-04-14 16:30:00 2024-04-14 16:30:00 Outpatient DARIEN LOBO [id number] Maria Elena Alcantara 2024-04-12 11:00:00 2024-04-12 11:00:00 Outpatient MINNA ORTA MARIA ELENA BECERRA [id number] Maria Elena [facility] 2024-04-12 11:00:00 2024-04-12 11:00:00 Outpatient KEMWENDY POPE [facility] [id number] [facility]-12 00:00:00 2024-04-12 00:00:00 Outpatient SHARATH HALEY [facility] [id number] Maria Elena [facility] 2024-04-05 11:30:00 2024-04-05 11:30:00 Outpatient ALFREDONIURKADARIEN Olson [facility] [id number] Maria Elena [facility] 2024-04-05 00:00:00 2024-04-05 00:00:00 Outpatient DARIEN LOBO [facility] ELENA [facility]ECERRA [id number] [facility] 2024-03-28 00:00:00 2024-03-28 00:00:00 Outpatient DARIEN LOBO [facility]NA [facility] [id number] [facility] 2024-03-15 08:30:00 2024-03-15 08:30:00 Outpatient WENDY BROWNLEE [facility] [id number] [facility] 2024-02-17 20:58:00 2024-02-17 21:44:00 Emergency X SALUDYARY JOHN [facility] ERT [id number] [facility] 2024-02-17 20:58:00 2024-02-17 21:44:00 Emergency Yary Camp [facility] 1.2.840.114 350.1.13.10 4.2.7.2.686 [id number] [facility] 2024-02-09 13:10:00 2024-02-09 15:14:00 Emergency E TUNDE QUINTANILLA [facility] [id number] [address] [place] [address] 2024-02-08 20:38:00 2024-02-08 21:40:00 Emergency X KEISHA DAVENPORT [facility] ERT [id number] [facility] 2024-02-08 20:38:00 2024-02-08 21:40:00 Emergency Keisha Davenport [facility] 1.2.840.114 350.1.13.10 4.2.7.2.686 [id number] [facility] 2024-02-08 14:08:00 2024-02-08 17:06:00 Emergency Christina Villarreal [facility] 1.2.840.114 350.1.13.10 4.2.7.2.686 [id number] [facility] 2024-01-14 04:46:00 2024-01-14 06:23:00 Emergency X TERESSA JAC [facility] ERT [id number] [facility] 2024-01-14 04:46:00 2024-01-14 06:23:00 Emergency Jac Navarro [facility] 1.2.840.114 350.1.13.10 4.2.7.2.686 [id number] [facility] 2023-12-22 21:51:00 2023-12-22 23:13:00 Emergency X TREV ROWERADHA [facility] ERT [id number] [facility] 2023-12-22 21:51:00 2023-12-22 23:13:00 Emergency Sullyroseline Caiiln [facility] 1.2.840.114 350.1.13.10 4.2.7.2.686 [id number] [facility] 2023-12-21 19:36:00 2023-12-21 21:52:00 Emergency X QUENTIN MACIEL [facility] ERT [id number] [facility] 2023-12-21 19:36:00 2023-12-21 21:52:00 Emergency Quentin Maciel [facility] 1.2.840.114 350.1.13.10 4.2.7.2.686 [id number] [facility] 2023-11-10 19:29:00 2023-11-10 20:14:00 Emergency X CHRISTY HOLLIDAY [facility] ERT [id number] [facility] 2023-11-10 19:29:00 2023-11-10 20:14:00 Emergency Christy Holliday [facility] 1..840.114 350.1.13.10 4.2.7.2.686 [id number] [facility] 2023-10-27 00:49:00 2023-10-27 01:41:00 Emergency X TERESSAJAC [facility] ERT [id number] [facility] 2023-10-27 00:49:00 2023-10-27 01:41:00 Emergency Jac Navarro [facility] 1..840.114 350.1.13.10 4.2.7.2.686 [id number] [facility] 2023-07-15 00:00:00 2023-07-15 00:00:00 Outpatient YAMIL, DARIEN BECERRA [id number] Maria Elena [facility] 2023-06-16 11:30:00 2023-06-16 11:30:00 Outpatient DARIEN LOBO [id number] Maria Elena [facility] 2023-05-18 00:00:00 2023-05-18 00:00:00 Outpatient MARIA ELENA CHAN [id number] Maria Elena [facility] 2022-10-14 10:07:00 2022-10-14 14:39:00 Emergency X QUENTIN MACIEL [facility] ERT [id number] [facility] 2022-10-14 10:07:00 2022-10-14 14:39:00 Emergency Quentin Maciel [facility] 1..840.114 350.1.13.10 4.2.7.2.686 [id number] [facility] 2022-03-12 05:15:00 2022-03-12 06:41:00 Emergency X CHRISTY HOLLIDAY [facility] ERT [id number] [facility] 2022-03-12 05:15:00 2022-03-12 06:41:00 Emergency Christy Holliday [facility] 1.2.840.114 350.1.13.10 4.2.7.2.686 [id number] [facility] 2022-02-20 04:17:00 2022-02-20 07:16:00 Emergency X CHRISTY HOLLIDAY [facility] ERT [id number] [facility] 2022-02-20 04:17:00 2022-02-20 07:16:00 Emergency Christy Holliday [facility] 1.2.840.114 350.1.13.10 4.2.7.2.686 [id number] [facility] 2021-02-03 11:10:00 2021-02-03 11:10:00 Outpatient R DENISE SUNG [facility] [id number] [facility] 2021-01-13 11:20:00 2021-01-13 11:20:00 Outpatient [facility] [id number] [facility] 2020-11-10 08:20:00 2020-11-10 08:20:00 Outpatient R KARLEY ADAMS [facility] [id number] [facility] Results Test Description Test Time Test Comments Results Result Co mments Source [facility] WITH [id number] 18:19:05* Test Item Value Reference Range Interpretation [...] 33.2 g/dL 31.2-35.0 RDW-SD (test code = 34844-4) 53.9 fL 38.5-51.6 H RDW-CV (test code = 788-0) 15.2 % 12.1-15.4 PLT (test code = 777-3) 271 150-328 No platelet clum p seen on the smear MPV (test code = 04217-1) 10.1 fL 9.8-13.0 IPF % (test code = 8687841069) 4.2 % 1.2-10.7 Platelet count measured by fluorescence method. NRBC/100 WBC (test code = 8940467869) 0.0 0.0-10.0 NRBC x10^3 (test code = 0222321725) See_Comment [Automated [employer] ge] The system which generated this result transmitted reference range: 10*3/?L. The reference range was not used to interpret this result as normal/abnormal. GRAN MAT (NEUT) % (test code = 770-8) 74.5 % IMM GRAN % (test code = 9626385747) 1.70 % LYMPH % (test code = 736-9) 12.8 % MONO % (test code = 5905-5) 10.4 % EOS % (test code = 713-8) 0.3 % BASO % (test code = 706-2) 0.3 % GRAN MAT x10^3(ANC) (test code = 1002903955) 10.27 10*3/uL 1.99-6.95 H IMM GRAN x10^3 (test code = 2211881808) 0.23 10*3/uL 0.00-0.06 H LYMPH x10^3 (test code = 731-0) 1.77 10*3/uL 1.09-3.23 MONO x10^3 (test code = 742-7) 1.43 10*3/uL 0.36-1.02 H EOS x10^3 (test code = 711-2) 0.04 10*3/uL 0.06-0.53 L BASO x10^3 (test code = 704-7) 0.04 10*3/uL 0.01-0.09 ELLIPTO/OVAL (test code = 58626-4) 2+ See_Comment A [Automated [employer]] The system which generated this result transmitted reference range: (none). The reference range was not used to interpret this result as normal/abnormal. POLYCHROMASIA (test code = 30854-8) 2+ See_Comment [Automated [employer]] The system which generated this result transmitted reference range: 2+. The reference range was not used to interpret this result as normal/abnormal. SPHEROCYTES (test code = 802-9) 1+ A TOXIC CHANGES (test code = 803-7) Present A PLT ESTIMATE (test code = 9317-9) Normal Normal Lab Interpretation (test code = 88546-5) [facility]normal [facility] [id number] 17:49:42* Test Item Value Reference Range Interpretation Comme nts TROPONIN I (test code = 9635198347) 0.004 ng/mL <=0.034 LOUISE (test code = [...] of biotin. Lab Interpretation (test code = 24756-1) Normal [facility] [id number] 17:47:05* Test Item Value Reference Range Interpretation Comme nts NT-proBNP (test code = 85780-3) 125 pg/mL <=125 Lab Interpretation (test cod e = 88138-4) Normal [facility]24-[facility]14 17:39:20 ALCOHOL<10mg/dL07/23/2024 12:39 PM [facility]10 Ovaugqrw21-866 Toxic>100 Depression of DANDY OPERATOR>400 Fatalities [facility] Center[facility]. METABOLIC PANEL (62324)2024-07-23 17:38:03* Test Item Value Reference Range Interpretation Comme nts NA (test code = 5577481731) 134 mmol/L 135-145 L K (test code = 3278173090) 3.8 mmol/L 3.5-5.0 CL (test code = 6850613874) 98 mmol/L 98-108 CO2 TOTAL (test code = 5796878081) 22 mmol/L 23-31 L AGAP (test code = 7115401016) 14 2-16 BUN (test code = 2315352736) 14 mg/dL 7-23 GLUCOSE (test code = 0391275605) 110 mg/dL 70-110 CREATININE (test code = 2160-0) 0.54 mg/dL 0.60-1.25 L TOTAL BILI (test code = 9391470613) 1.1 mg/dL 0.1-1.1 CALCIUM (test code = 9429302500) 9.4 mg/dL 8.6-10.6 T PROTEIN (test code = 6459288627) 7.8 g/dL 6.3-8.2 ALBUMIN (test code = 5771295149) 4.9 g/dL 3.5-5.0 ALK PHOS (test code = 0800990809) 75 U/L 34-122 ALTv (test code = 1742-6) 21 U/L 5-50 AST(SGOT) (test code = 9281107880) 30 U/L 13-40 eGFR (test code = 91110-9) 117.0 mL/min/1.73m2 CKD-EPI eGFR (2020). Assuming creatinine has been stable day-to-day for at least three months, the eGFR indicates Category G1 (>= 90 mL/min/1.73 m2) Lab Interpretation (test code = 72745-3) Abnormal [facility] 17:38:03* Test Item Value Reference Range Interpretation Comme nts LIPASE (test code = 6144960725) 48 U/L 0-220 Lab Interpretation (test cod e = 34178-0) Normal [facility] THORAX WO [id number] 13:12:40 PROCEDURE: CT CHEST WITHOUT CONTRAST - [...] lesions are detected.The soft tissues appear normal. [facility]ressProcal[facility]onin2024-09-10 07:32:10* Test Item Value Reference Range Interpretation Comme [facility] Procalcitonin (test code = 2872682279) 0.02 ng/mL <=0.07 LOUISE (test code = [...] lung abscess/empyema. For further information please refer to:[email or web address] Lab Interpretation (test code = 80460-9) Normal [facility]ressLa[facility] Whole [id number] 16:01:14* Test Item Value Reference Range Interpretation Comme nts LACTIC ACID (test code = 1575146304) 1.87 mmol/L 0.50-2.20 Lab Interpretation (test cod e = 50300-3) Normal [facility] Whole [id number] 13:12:25* Test Item Value Reference Range Interpretation Comme nts LACTIC ACID (test code = 5091490753) 6.23 mmol/L 0.50-2.20 H Lab Interpretation (test cod e = 57051-5) Abnormal [facility]. METABOLIC PANEL (54416)2024-07-18 12:56:44* Test Item Value Reference Range Interpretation Comme nts NA (test code = 3002731629) 140 mmol/L 135-145 K (test code = 8489362985) 4.1 mmol/L 3.5-5.0 CL (test code = 0302469659) 102 mmol/L 98-108 CO2 TOTAL (test code = 5224145116) 20 mmol/L 23-31 L AGAP (test code = 8809649799) 18 2-16 H BUN (test code = 5508011838) 10 mg/dL 7-23 GLUCOSE (test code = 2061645056) 123 mg/dL 70-110 H CREATININE (test code = 2160-0) 0.59 mg/dL 0.60-1.25 L TOTAL BILI (test code = 4120221971) 0.6 mg/dL 0.1-1.1 CALCIUM (test code = 3271884672) 9.1 mg/dL 8.6-10.6 T PROTEIN (test code = 7156768564) 7.8 g/dL 6.3-8.2 ALBUMIN (test code = 4438914451) 4.9 g/dL 3.5-5.0 ALK PHOS (test code = 5021061878) 75 U/L 34-122 ALTv (test code = 1742-6) 23 U/L 5-50 AST(SGOT) (test code = 6731920238) 34 U/L 13-40 eGFR (test code = 93943-1) 113.9 mL/min/1.73m2 CKD-EPI eGFR (2020). Assuming creatinine has been stable day-to-day for at least three months, the eGFR indicates Category G1 (>= 90 mL/min/1.73 m2) Lab Interpretation (test code = 18230-5) [facility]normal [facility] [id number] 12:12:28Shay Stinson MD ? ? 07/18/2024 ?8:56 [...] ? ?Care discussed with: admitting provider ? [facility] [id number] 12:08:40* Test Item Value Reference Range Interpretation Comme nts TROPONIN I (test code = 6958834778) 0.015 ng/mL <=0.034 LOUISE (test code = [...] of biotin. Lab Interpretation (test code = 25562-4) Normal [facility]ressN-TERMINAL [id number] 12:01:41* Test Item Value Reference Range Interpretation Comme nts NT-proBNP (test code = 86859-1) 111 pg/mL <=125 Lab Interpretation (test cod e = 43728-1) Normal [facility] CHE[facility] 1 [id number] 11:57:22ORDERING PHYSICIAN: ZACH MCGUIRE CLINICAL HISTORY: Shortness of breath TECHNIQUE: Frontal view of chest COMPARISON: 07/17/2024 FINDINGS: The cardiac silhouette is mildly enlarged, stable. ?Stable right lower lobepatchy infiltrate. There are no effusions. The left lung is clear. Osseous structures are normal.[facility]ressETHANOL2024-09-09 11:53:01* Test Item Value Reference Range Interpretation Comme nts ALCOHOL (test code = 6713882375) 91 mg/dL LOUISE (test code = LOUISE) <10 Njudiwjq52-193 Toxic>100 Depression of DANDY OPERATOR>400 Fatalities Reported [facility] WITH [id number] 11:36:10* Test Item Value Reference Range Interpretation [...] 32.4 g/dL 31.2-35.0 RDW-SD (test code = 43762-1) 58.6 fL 38.5-51.6 H RDW-CV (test code = 788-0) 16.3 % 12.1-15.4 H PLT (test code = 777-3) 229 150-328 MPV (test code = 46887-6) 9.0 fL 9.8-13.0 L NRBC/100 WBC (test code = 2664058016) 0.0 0.0-10.0 NRBC x10^3 (test code = 7852391150) See_Comment [Automated message] The system which generated this result transmitted reference range: 10*3/?L. The reference range was not used to interpret this result as normal/abnormal. GRAN MAT (NEUT) % (test code = 770-8) 76.7 % IMM GRAN % (test code = 9464529638) 0.80 % LYMPH % (test code = 736-9) 15.8 % MONO % (test code = 5905-5) 6.6 % EOS % (test code = 713-8) 0.0 % BASO % (test code = 706-2) 0.1 % GRAN MAT x10^3(ANC) (test code = 7490377750) 11.29 10*3/uL 1.99-6.95 H IMM GRAN x10^3 (test code = 5568969181) 0.12 10*3/uL 0.00-0.06 H LYMPH x10^3 (test code = 731-0) 2.32 10*3/uL 1.09-3.23 MONO x10^3 (test code = 742-7) 0.97 10*3/uL 0.36-1.02 EOS x10^3 (test code = 711-2) 0.06-0.53 L BASO x10^3 (test code = 704-7) 0.01-0.09 Lab Interpretation (test code = 92675-5) Abnormal [facility] 1 [id number] 02:23:27EXAM: ?XR CHEST 1 VW HISTORY: ?dyspnea Ordering physician: BLU MCGUIRE COMPARISON: Chest x-ray from February 08, 2024. TECHNIQUE: Frontal chest x-ray. ? FINDINGS: Heart size is stable. Pulmonary vessels are normal. Mild infiltrate in theright lower lung is present. No pneumothorax or pleural effusion isdetected. Mediastinal contour is normal. No free air is discerned. There isno displaced rib fracture. ?[facility] CypressLIPID [id number] 00:00:00 * Test Item Value Reference Range Interpretation Comme nts CHOLESTEROL (test code = 2210) 234 MG/DL TRIGLYCERIDES (test code = 2232) 176 MG/DL HDL CHOLESTEROL (test code = 2220) 80 MG/DL CALC LDL CHOL (test code = 2237) 125 MG/DL RISK RATIO LDL/HDL (test cod e = 2238) 1.56 RATIO Tunde HaroCBC W/AUTO [id number] 00:00:00* Test Item Value Reference Range Interpretation [...] ABS NUCLEATED RBCS (test cod e = 34427) 0.00 K/UL Tunde Quiñonez TahirCOMPREHENSIVE METABOLIC [id number] 00:00:00* Test Item Value Reference Range Interpretation Comme nts GLUCOSE (test code = 2217) 145 MG/DL BUN (test code = 2208) 8 MG/DL CREATININE (test code = 2214) 0.71 MG/DL eGFR (2020 CKD-EPI) (test code = 72974) 108 ML/MIN/1.73 CALC BUN/CREAT (test code = [...] code = 2219) 11 U/L Tunde HaroHEMOGLOBIN [id number] 00:00:00* Test Item Value Reference Range Interpretation Comme nts HEMOGLOBIN A1c (test code = 33479) 5.5 % Tunde HaroEizsxyZoybqru3097-15-29 21:47:04* Test Item Value Reference Range Interpretation Comme nts ALCOHOL (test code = 8510521702) 329 mg/dL LOUISE (test code = LOUISE) <10 Hzqegszp62-297 Toxic>100 Depression of DANDY OPERATOR>400 Fatalities Reported [facility]ressAC Panel 20 + Lactic Gwfz2408-30-93 20:52:47* Test Item Value Reference Range Interpretation Comme nts PH (test code = 2) 7.39 7.35-7.45 PCO2 (test code = 5603018044) 42 35-45 PO2 (test code = 9296586244) 76 80-100 L HCO3 (test code = 6118377822) 25 22-26 BE (test code = 7418126016) -0.1 -3.0-3.0 THB (test code = 5797694458) 14.3 g/dL 13.5-18.0 %O2HB (test code = 9120338991) 85.8 % 94.0-99.0 L %COHB ART (test code = 7454941146) 9.0 % 0.0-1.5 H %METHB ART (test code = 4028170004) 0.3 % 0.4-1.5 L VOL%O2 ART (test code = 8115824275) 17.3 % 15.0-23.0 NA (test code = 2199317336) 140 mmol/L 135-145 K+ (test code = 4634785585) 4.1 mmol/L 3.5-5.0 AC CA IONZ (test code = 7780032802) 4.50 mg/dL 4.50-5.30 GLUCOSE (test code = 5094425052) 105 mg/dL 70-110 LACTIC ACID (test code = 4221909079) 2.60 mmol/L 0.50-2.20 H Lab Interpretation (test cod e = 89235-3) Abnormal [facility] CypressTroponin [id number] 20:34:14* Test Item Value Reference Range Interpretation Comme nts TROPONIN I (test code = 7871238059) 0.008 ng/mL <=0.034 LOUISE (test code = [...] of biotin. Lab Interpretation (test code = 26707-7) Normal [facility]ressN-Terminal Ytl-[id number] 20:31:35* Test Item Value Reference Range Interpretation Comme nts NT-proBNP (test code = 83106-4) 188 pg/mL <=125 LOUISE (test code = LOUISE) Result Indeterminate-Consid er causes of NT-proBNP elevation other than Heart failure such as acute coronary syndrome, pulmonary embolism, pulmonary hypertension, sepsis, stroke, and renal dysfunction. Lab Interpretation (test code = 17237-4) Abnormal [facility] CypressComp. Metabolic Panel (66731)2024-02-08 20:21:10* Test Item Value Reference Range Interpretation Comme nts NA (test code = 4490560486) 135 mmol/L 135-145 K (test code = 5707033135) 4.5 mmol/L 3.5-5.0 CL (test code = 2715819414) 100 mmol/L 98-108 CO2 TOTAL (test code = 3059776787) 22 mmol/L 23-31 L AGAP (test code = 5632112161) 13 2-16 BUN (test code = 6774861831) 8 mg/dL 7-23 GLUCOSE (test code = 5462237474) 97 mg/dL 70-110 CREATININE (test code = 2160-0) 0.65 mg/dL 0.60-1.25 TOTAL BILI (test code = 6995208441) 0.4 mg/dL 0.1-1.1 CALCIUM (test code = 8952140673) 9.4 mg/dL 8.6-10.6 T PROTEIN (test code = 2784473287) 8.2 g/dL 6.3-8.2 ALBUMIN (test code = 7254251389) 4.7 g/dL 3.5-5.0 ALK PHOS (test code = 9343317225) 76 U/L 34-122 ALTv (test code = 1742-6) 33 U/L 5-50 AST(SGOT) (test code = 2353650140) 54 U/L 13-40 H eGFR (test code = 12716-3) 111.3 mL/min/1.73m2 CKD-EPI eGFR (2020). Assuming creatinine has been stable day-to-day for at least three months, the eGFR indicates Category G1 (>= 90 mL/min/1.73 m2) Lab Interpretation (test code = 07609-6) Abnormal [facility] CypressMagnesium2024-04-01 20:21:10* Test Item Value Reference Range Interpretation Comme nts MAGNESIUM (test code = 5175812527) 2.1 mg/dL 1.7-2.4 Lab Interpretation (test cod e = 02725-9) Normal [facility] CHEST 1 [id number] 20:07:21EXAM: XR CHEST 1 VW COMPARISON: 01/14/2024 HISTORY: sob FINDINGS: Lungs: Slightly hyperexpanded lungswith subtle progression of interstitialprominence. Trace pleural effusions could be present. Heart/Mediastinum: Stable cardiomegaly. Bones and soft tissues: No osseous abnormality is visualized.[facility] Cbc with [id number] 20:04:26* Test Item Value Reference Range Interpretation [...] 33.8 g/dL 31.2-35.0 RDW-SD (test code = 98495-2) 50.5 fL 38.5-51.6 RDW-CV (test code = 788-0) 14.3 % 12.1-15.4 PLT (test code = 777-3) 206 150-328 MPV (test code = 48619-0) 9.1 fL 9.8-13.0 L NRBC/100 WBC (test code = 2725531337) 0.0 0.0-10.0 NRBC x10^3 (test code = 6318825052) See_Comment [Automated messa ge] The system which generated this result transmitted reference range: 10*3/?L. The reference range was not used to interpret this result as normal/abnormal. GRAN MAT (NEUT) % (test code = 770-8) 81.0 % IMM GRAN % (test code = 9151891318) 1.20 % LYMPH % (test code = 736-9) 10.9 % MONO % (test code = 5905-5) 6.8 % EOS % (test code = 713-8) 0.0 % BASO % (test code = 706-2) 0.1 % GRAN MAT x10^3(ANC) (test code = 3259359930) 9.31 10*3/uL 1.99-6.95 H IMM GRAN x10^3 (test code = 6535159680) 0.14 10*3/uL 0.00-0.06 H LYMPH x10^3 (test code = 731-0) 1.25 10*3/uL 1.09-3.23 MONO x10^3 (test code = 742-7) 0.78 10*3/uL 0.36-1.02 EOS x10^3 (test code = 711-2) 0.06-0.53 L BASO x10^3 (test code = 704-7) 0.01-0.09 Lab Interpretation (test code = 90797-5) Abnormal [facility]ressCOMP. METABOLIC PANEL (88735)2023-12-23 04:53:26* Test Item Value Reference Range Interpretation Comme nts NA (test code = 4945677716) 135 mmol/L 135-145 K (test code = 3092285593) 3.2 mmol/L 3.5-5.0 L CL (test code = 3934319770) 104 mmol/L 98-108 CO2 TOTAL (test code = 0854137678) 23 mmol/L 23-31 AGAP (test code = 2182554789) 8 2-16 BUN (test code = 4165723733) 11 mg/dL 7-23 GLUCOSE (test code = 0070266888) 82 mg/dL 70-110 CREATININE (test code = 2160-0) 0.64 mg/dL 0.60-1.25 TOTAL BILI (test code = 6080227217) 0.5 mg/dL 0.1-1.1 CALCIUM (test code = 6883474958) 8.8 mg/dL 8.6-10.6 T PROTEIN (test code = 5327917154) 6.7 g/dL 6.3-8.2 ALBUMIN (test code = 2000463042) 4.1 g/dL 3.5-5.0 ALK PHOS (test code = 0740369170) 46 U/L 34-122 ALTv (test code = 1742-6) 21 U/L 5-50 AST(SGOT) (test code = 0350633355) 43 U/L 13-40 H eGFR (test code = 34105-2) 111.8 mL/min/1.73m2 CKD-EPI eGFR (2020). Assuming creatinine has been stable day-to-day for at least three months, the eGFR indicates Category G1 (>= 90 mL/min/1.73 m2) Lab Interpretation (test code = 52719-4) Abnormal [facility] CypressLIPASE2024-02-14 04:53:26* Test Item Value Reference Range Interpretation Comme nts LIPASE (test code = 7811235541) 105 U/L 0-220 Lab Interpretation (test cod e = 46160-1) Normal [facility] CypressCB WITH [id number] 04:34:24* Test Item Value Reference Range Interpretation [...] 33.0 g/dL 31.2-35.0 RDW-SD (test code = 02061-8) 50.9 fL 38.5-51.6 RDW-CV (test code = 788-0) 13.7 % 12.1-15.4 PLT (test code = 777-3) 232 150-328 MPV (test code = 77394-4) 8.7 fL 9.8-13.0 L NRBC/100 WBC (test code = 0172705503) 0.0 0.0-10.0 NRBC x10^3 (test code = 9577072286) See_Comment [Automated messa ge] The system which generated this result transmitted reference range: 10*3/?L. The reference range was not used to interpret this result as normal/abnormal. GRAN MAT (NEUT) % (test code = 770-8) 58.8 % IMM GRAN % (test code = 8192252947) 0.90 % LYMPH % (test code = 736-9) 27.8 % MONO % (test code = 5905-5) 10.5 % EOS % (test code = 713-8) 1.3 % BASO % (test code = 706-2) 0.7 % GRAN MAT x10^3(ANC) (test code = 7460675231) 5.68 10*3/uL 1.99-6.95 IMM GRAN x10^3 (test code = 5477915713) 0.09 10*3/uL 0.00-0.06 H LYMPH x10^3 (test code = 731-0) 2.69 10*3/uL 1.09-3.23 MONO x10^3 (test code = 742-7) 1.02 10*3/uL 0.36-1.02 EOS x10^3 (test code = 711-2) 0.13 10*3/uL 0.06-0.53 BASO x10^3 (test code = 704-7) 0.07 10*3/uL 0.01-0.09 Lab Interpretation (test code = 63416-7) Abnormal [facility]ressCT ABDOMEN PELVIS W [id number] 03:32:43Exam: CT Abdomen and Pelvis With Contrast, [...] tissues: Small fat-containing inguinal hernias.[facility] CypressEthanol2024-02-13 02:32:24* Test Item Value Reference Range Interpretation Comme nts ALCOHOL (test code = 6468187684) 117 mg/dL LOUISE (test code = LOUISE) <10 Jcqfktmx36-865 Toxic>100 Depression of DANDY OPERATOR>400 Fatalities Reported [facility]. Metabolic Panel (32485)2023-12-22 02:31:43* Test Item Value Reference Range Interpretation Comme nts NA (test code = 4667092455) 133 mmol/L 135-145 L K (test code = 5566682595) 3.3 mmol/L 3.5-5.0 L CL (test code = 8687490272) 102 mmol/L 98-108 CO2 TOTAL (test code = 6442226755) 25 mmol/L 23-31 AGAP (test code = 8782768925) 6 2-16 BUN (test code = 6723988121) 11 mg/dL 7-23 GLUCOSE (test code = 8114617447) 75 mg/dL 70-110 CREATININE (test code = 0581282824) 0.51 mg/dL 0.60-1.25 L TOTAL BILI (test code = 3894917965) 0.5 mg/dL 0.1-1.1 CALCIUM (test code = 4075948683) 8.9 mg/dL 8.6-10.6 T PROTEIN (test code = 7011913646) 7.2 g/dL 6.3-8.2 ALBUMIN (test code = 3567808189) 4.5 g/dL 3.5-5.0 ALK PHOS (test code = 0125795417) 46 U/L 34-122 ALTv (test code = 1742-6) 15 U/L 5-50 AST(SGOT) (test code = 7096389264) 24 U/L 13-40 eGFR (test code = 71448-4) 119.7 mL/min/1.73m2 CKD-EPI eGFR (2020). Assuming creatinine has been stable day-to-day for at least three months, the eGFR indicates Category G1 (>= 90 mL/min/1.73 m2) Lab Interpretation (test code = 66759-6) Abnormal [facility] CypressLipase2024-02-13 02:31:43* Test Item Value Reference Range Interpretation Comme nts LIPASE (test code = 4296485867) 121 U/L 0-220 Lab Interpretation (test cod e = 19519-9) Normal [facility] CypressProthrombin Time / [id number] 02:21:02* Test Item Value Reference Range Interpretation Comme nts PROTIME PATIENT (test code = 5964-2) 10.5 10.1-12.6 INR (test code = 6301-6) 0.9 Normal INR <1.1; Warfarin Therapeutic range 2.0 to 3.0 or 2.5 to 3.5, depending upon the indications. Lab Interpretation (test code = 64166-7) Normal [facility] CypressCbc with Mwwt9625-74-03 02:14:04* Test Item Value Reference Range Interpretation [...] 34.0 g/dL 31.2-35.0 RDW-SD (test code = 60533-6) 49.1 fL 38.5-51.6 RDW-CV (test code = 788-0) 13.5 % 12.1-15.4 PLT (test code = 777-3) 260 150-328 MPV (test code = 73065-5) 8.7 fL 9.8-13.0 L NRBC/100 WBC (test code = 7935556430) 0.0 0.0-10.0 NRBC x10^3 (test code = 2201536727) See_Comment [Automated messa ge] The system which generated this result transmitted reference range: 10*3/?L. The reference range was not used to interpret this result as normal/abnormal. GRAN MAT (NEUT) % (test code = 770-8) 64.3 % IMM GRAN % (test code = 2638968109) 0.90 % LYMPH % (test code = 736-9) 24.2 % MONO % (test code = 5905-5) 9.1 % EOS % (test code = 713-8) 0.7 % BASO % (test code = 706-2) 0.8 % GRAN MAT x10^3(ANC) (test code = 8651134029) 8.73 10*3/uL 1.99-6.95 H IMM GRAN x10^3 (test code = 6854149537) 0.12 10*3/uL 0.00-0.06 H LYMPH x10^3 (test code = 731-0) 3.28 10*3/uL 1.09-3.23 H MONO x10^3 (test code = 742-7) 1.23 10*3/uL 0.36-1.02 H EOS x10^3 (test code = 711-2) 0.10 10*3/uL 0.06-0.53 BASO x10^3 (test code = 704-7) 0.11 10*3/uL 0.01-0.09 H Lab Interpretation (test code = 59772-9) Abnormal [facility] [id number] 10:16:22* Test Item Value Reference Range Interpretation Comments TROPONIN I (test code = 8180250602) 0.007 ng/mL See_Comment [Automated message] The system [...] of biotin. Lab Interpretation (test code = 68911-6) Normal [facility] CypressN-TERMINAL NFW-XRC6294-30-14 10:13:01* Test Item Value Reference Range Interpretation Comme nts NT-proBNP (test code = 8120455503) 52 pg/mL See_Comment [Automated message] The system which generated this result transmitted reference range: <=125. The reference range was not used to interpret this result as normal/abnormal. LOUISE (test code = LOUISE) Biotin has been reported to cause a negative bias, interpret results relative to patient's use of biotin. Lab Interpretation (test code = 29311-5) Normal [facility] CypressCOMP. METABOLIC PANEL (15201)2022-02-20 10:04:02* Test Item Value Reference Range Interpretation Comme nts NA (test code = 5067462175) 137 mmol/L 135-145 K (test code = 8439629429) 3.6 mmol/L 3.5-5.0 CL (test code = 8059902601) 99 mmol/L 98-108 CO2 TOTAL (test code = 6294748411) 25 mmol/L 23-31 AGAP (test code = 8147935121) 2-16 BUN (test code = 4695428183) 6 mg/dL 7-23 L GLUCOSE (test code = 7042905637) 88 mg/dL 70-110 CREATININE (test code = 0631304579) 0.55 mg/dL 0.60-1.25 L TOTAL BILI (test code = 1452714308) 0.8 mg/dL 0.1-1.1 CALCIUM (test code = 7988759672) 8.9 mg/dL 8.6-10.6 T PROTEIN (test code = 4731809367) 7.5 g/dL 6.3-8.2 ALBUMIN (test code = 7045083834) 4.8 g/dL 3.5-5.0 ALK PHOS (test code = 7444791271) 113 U/L 34-122 ALTv (test code = 1742-6) 84 U/L 5-50 H AST(SGOT) (test code = 9067256593) 107 U/L 13-40 H eGFR (test code = 0208387227) mL/min/1.73m2 LOUISE (test code = LOUISE) Association [...] imaging tests). Lab Interpretation (test code = 58214-1) Abnormal [facility] CypressLIPASE, IOMYV2810-00-03 10:03:21* Test Item Value Reference Range Interpretation Comme nts LIPASE (test code = 9208325455) 193 U/L 0-220 Lab Interpretation (test cod e = 90403-6) Normal [facility] CypressCB WITH [id number] 09:39:17* Test Item Value Reference Range Interpretation [...] g/dL 31.2-35.0 H RDW-SD (test code = 91417-0) 44.4 fL 38.5-51.6 RDW-CV (test code = 788-0) 11.9 % 12.1-15.4 L PLT (test code = 777-3) See_Comment [Automated messa ge] The system which generated this result transmitted reference range: 150 - 328 10*3/?L. The reference range was not used to interpret this result as normal/abnormal. MPV (test code = 11281-1) 9.2 fL 9.8-13.0 L NRBC/100 WBC (test code = 5563009336) See_Comment [Automated Demdex ssage] The system which generated this result transmitted reference range: 0.0 - 10.0 /100 WBCs. The reference range was not used to interpret this result as normal/abnormal. NRBC x10^3 (test code = 4941188504) <0.01 See_Comment [Automated messa ge] The system which generated this result transmitted reference range: 10*3/?L. The reference range was not used to interpret this result as normal/abnormal. GRAN MAT (NEUT) % (test code = 770-8) 69.9 % IMM GRAN % (test code = 3590863748) 1.50 % LYMPH % (test code = 736-9) 18.9 % MONO % (test code = 5905-5) 7.0 % EOS % (test code = 713-8) 1.9 % BASO % (test code = 706-2) 0.8 % GRAN MAT x10^3(ANC) (test code = 4848445798) 7.15 10*3/uL 1.99-6.95 H IMM GRAN x10^3 (test code = 3683944231) 0.15 10*3/uL 0.00-0.06 H LYMPH x10^3 (test code = 731-0) 1.93 10*3/uL 1.09-3.23 MONO x10^3 (test code = 742-7) 0.72 10*3/uL 0.36-1.02 EOS x10^3 (test code = 711-2) 0.19 10*3/uL 0.06-0.53 BASO x10^3 (test code = 704-7) 0.08 10*3/uL 0.01-0.09 Lab Interpretation (test code = 38907-7) Abnormal [facility] History and Physical Notes Date/Time Note Provider [...] full understanding, Time discussed 3 minutes [place] [employer] was verified Disposition: Admit ICU [facility]"
--- NOTE | 2024-10-25 22:34 | RAD REPORT ---
Procedure: Chest Single View HISTORY: Chest pain COMPARISON: October 25, 2024 FINDINGS: Worsening in moderate to marked bilateral pulmonary opacities No significant pleural effusion noted. The heart is mildly enlarged. IMPRESSION: Worsening in moderate to marked bilateral pulmonary opacities which could represent pneumonia or pulm onary edema
[2024-10-25 23:23] LABS: Anion Gap 12.8 mEq/L (5.0-15.0); Potassium 3.8 mEq/L (3.5-5.1)
[2024-10-25 23:26] LABS: Absolute Lymphocytes (CBC) 0.9 K/uL (0.7-4.9); Absolute Monocytes 1.3 K/uL (0.1-1.3); Absolute Neutrophil 15.7 K/uL (1.8-8.0); Basophils % 0.3 % (0-1.3); Eosinophils % 0.1 % (0-4.4); Hematocrit 36.1 % (39.6-49.0); Hemoglobin 11.7 g/dL (13.6-17.9); Lymphocytes % 4.9 % (15.3-44.8); MCH 32.1 pg (27.0-35.0); MCHC 32.3 g/dL (32.0-36.0); MCV 99.4 fL (80-100); MPV 7.2 fL (7.6-11.3); Monocytes % 7.4 % (3.3-12.3); Neutrophils % 87.3 % (41.7-73.7); Platelets 239 thou/uL (152-406); RBC Red Blood Cell Count 3.63 M/uL (4.33-5.43); Red Cell Distribution Width 17.4 % (12.1-15.2)
[2024-10-26] MEDS ORDERED: CEFTRIAXONE 1000 MG/VIAL ONE (01:11)
[2024-10-26] MEDS ORDERED: KETOROLAC 30 MG/ML INJ ONE (01:11)
[2024-10-26] MEDS ORDERED: NA CHLORIDE 0.9% 50 ML ONE (01:11)
[2024-10-26 01:40] LABS: Band Neutrophils 16 % (0-1); Differential Total Cells Count 100; Lymphocytes 7 % (15-42); Monocytes 3 % (0-10); Segmented Neutrophils 74 % (40-80)
[2024-10-26 01:41] LABS: Blood Morphology Comment NOT SEEN (NOT SEEN); Platelet Estimate ADEQ
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
[2024-10-26 03:08] VITALS: TEMP 97.2
[2024-10-26 03:12] VITALS: BP 118/67; O2SAT 91
--- NOTE | 2024-10-27 11:29 | EKG ---
Test Date: 2024-10-25 Test Time: 22:18:33 Appraiser Timber: KRYSTIAN MEASUREMENT RESULTS: Intervals: Rate: 102 WY: 148 QRSD: 108 QT: 362 QTc: 471 Post: P: 71 WY: 148 QRS: 97 T: 78 INTERPRETIVE STATEMENTS: Sinus tachycardia Rightward axis Incomplete right bundle branch block Borderline ECG Compared to ECG 10/25/2024 02:01:06 Right-axis deviation now present Sinus rhythm no longer present Electronically Signed On 10-27-24 11:27:45 VP COMPLIANCE by Roberto Woodson
== END 2024-10-26 03:03 | disposition home or self-care (01) ==
LOC: ER 21:35
DX: J44.1 Chronic obstructive pulmonary disease with (acute) exacerbation (principal); J18.8 Other pneumonia, unspecified organism; J81.0 Acute pulmonary edema; I10 Essential (primary) hypertension; M81.0 Age-related osteoporosis without current pathological fracture; F17.210 Nicotine dependence, cigarettes, uncomplicated
CPT/HCPCS: 85025; 80048; 36415; 71045; 82077; J0696; 93005

== ENCOUNTER 2024-10-26 10:00 | Emergency (ER) | payer OTHER ==
[2024-10-26] MEDS ORDERED: IPRATROPIUM BROM 0.5MG/2.5ML ONE (10:19)
[2024-10-26] MEDS ORDERED: METHYLPREDNISOLONE 125 MG INJ ONE (10:19)
[2024-10-26] MEDS ORDERED: ALBUTEROL 2.5 MG/3 ML NEB SOL ONE (10:19)
[2024-10-26] MEDS ORDERED: MAGNESIUM SULFATE 1 gm IVPB 1 GM/100 ML BAG IV ONE (10:20)
[2024-10-26] MEDS ORDERED: Magnesium Sulfate 2gm IVPB 2 G/50 ML BAG IV ONE (10:35)
[2024-10-26 10:58] LABS: Absolute Basophils 0.1 K/uL (0-0.5); Absolute Lymphocytes (CBC) 0.5 K/uL (0.7-4.9); Absolute Monocytes 1.1 K/uL (0.1-1.3); Absolute Neutrophil 15.8 K/uL (1.8-8.0); Basophils % 0.5 % (0-1.3); Hematocrit 36.2 % (39.6-49.0); Hemoglobin 11.8 g/dL (13.6-17.9); MCH 32.3 pg (27.0-35.0); MCHC 32.5 g/dL (32.0-36.0); MCV 99.5 fL (80-100); MPV 7.2 fL (7.6-11.3); Monocytes % 6.4 % (3.3-12.3); Neutrophils % 90.1 % (41.7-73.7); Nucleated Red Blood Cells % 0.2 % (0-0); Platelets 250 thou/uL (152-406); RBC Red Blood Cell Count 3.64 M/uL (4.33-5.43); Red Cell Distribution Width 17.9 % (12.1-15.2)
--- NOTE | 2024-10-26 10:59 | RAD REPORT ---
EXAMINATION: ONE VIEW CHEST XR CLINICAL INDICATION: COPD TECHNIQUE: Frontal chest projection is submitted. Examination is limited by patient positioning and t echnique. COMPARISON: 10/25/2024 FINDINGS: Severe bilateral pulmonary opacities are noted, mildly progressive since the comparison study. This m ay represent worsening pneumonia or pulmonary edema. The heart is upper limit of normal in size. No displaced fractures identified.
[2024-10-26 11:13] LABS: ALT/SGPT 23 U/L (16-61); AST/SGOT 58 U/L (15-37); Albumin 3.3 g/dL (3.4-5.0); Alkaline Phosphatase 50 U/L (45-117); Anion Gap 14.8 mEq/L (5.0-15.0); BUN Blood Urea Nitrogen 9 mg/dL (7-18); Bicarbonate 21 mEq/L (21-32); Bilirubin Total 0.4 mg/dL (0.2-1.0); Globulin 3.4 g/dL (2.3-3.5); Glomerular Filtration Rate 107 ml/min (=/>90); Glucose Level 153 mg/dL (74-106); Magnesium 2.5 mg/dL (1.6-2.4); NT PRO-BNP 788 pg/mL (<125); Potassium 3.8 mEq/L (3.5-5.1); Protein, Total 6.7 g/dL (6.4-8.2); Sodium Level 135 mEq/L (136-145); Troponin High Sensitivity 8.6 pg/mL (<58.9)
[2024-10-26 11:14] LABS: Bilirubin Direct < 0.2 mg/dL (0-0.2); Bilirubin Indirect, Calculated 0.2 mg/dL (0.2-0.8)
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
--- NOTE | 2024-10-26 11:23 | EDPHYS ---
Physician Documentation [facility] Name: Randy Briones Age: 54 yrs Sex: Male : 1970 Arrival Date: 10/26/2024 Time: 10:00 Bed 14 Private MD: ED Physician Antonia Lizama HPI: 10/26 10:27 This 54 yrs old Male presents to ER via Wheelchair with complaints of Shortness Of sw6 Breath. 10:27 The patient has shortness of breath at rest. Onset: The symptoms/episode began/occurred sw6 Several days ago. Duration: The symptoms are continuous, and are steadily getting worse. The patient's shortness of breath has no apparent modifying factors, is aggravated by light activity. Associated signs and symptoms: Pertinent positives: non-productive cough, Pertinent negatives: chest pain, fever. Severity of symptoms: in the emergency department the symptoms are worse markedly. The patient has experienced similar episodes in the past, multiple times. The patient has been recently seen at the [facility] Emergency Department, today. The patient presents from home for that she for shortness of breath. Has history of COPD and still smokes. He was seen here yesterday evening and left early this morning because he had court. After court he then came back to the ER because he is still having trouble breathing. He reports he has not given himself any albuterol or Atrovent treatments at home as his inhalers have run out. No sick contacts. No fever. No cough. No chest pain. He does not wear oxygen at home. Here for evaluation.. Historical: - Allergies: 10:17 Lisinopril; iw - PMHx: 10:17 COPD; Alcoholism; Hepatitis B (Hypertension); home 02 3LNC PRN; Hypertension; iw Osteoporosis; - PSHx: 10:17 Amputation of left index finger; iw - Immunization history:: Adult Immunizations up to date. - Social history:: Smoking status: Patient reports the use of cigarette tobacco products. - Infectious Disease History:: Denies. - History obtained from: . ROS: 10:29 Constitutional: Negative for fever, chills, and weight loss, ENT: Negative for injury, sw6 pain, and discharge, Abdomen/GI: Negative for abdominal pain, nausea, vomiting, diarrhea, and constipation, MS/Extremity: Negative for injury and deformity, Neuro: Negative for headache, weakness, numbness, tingling, and seizure, Psych: Negative for depression, anxiety, suicide ideation, homicidal ideation, and hallucinations, 10:29 Cardiovascular: Negative for chest pain, 10:29 Respiratory: Positive for cough, shortness of breath, at rest. Exam: 10:29 Abdomen/GI: Soft, non-tender, with normal bowel sounds. No distension or tympany. No sw6 guarding or rebound. No evidence of tenderness throughout. Back: No spinal tenderness. No costovertebral tenderness. Full range of motion. Psych: Awake, alert, with orientation to person, place and time. Behavior, mood, and affect are within normal limits. 10:29 Constitutional: The patient appears in obvious distress, moderately distressed, 10:29 Chest/axilla: Inspection: normal, Palpation: tenderness, is not appreciated, 10:29 Cardiovascular: Rate: tachycardic, Rhythm: regular, 10:29 Respiratory: moderate respiratory distress is noted, Respirations: labored breathing, that is moderate, accessory muscle usage, that is moderate, tachypnea, that is moderate, Breath sounds: wheezing: that is severe, 10:29 Musculoskeletal/extremity: ROM: intact in all extremities, 10:29 Neuro: Exam negative for acute changes, focal neuro deficits, 11:09 ECG was reviewed by the Attending Physician. Vital Signs: 10:15 Pulse Ox 58% on R/A; iw 10:20 BP 134 / 65; Pulse 115; Resp 32 S; Pulse Ox 81% on 5 lpm NC; iw 10:51 BP 113 / 55; Pulse 133; Resp 34; Pulse Ox 86% ; iw 11:17 BP 117 / 59; Pulse 117; Resp 31; Pulse Ox 91% ; iw MDM: 10:29 Differential diagnosis: Bronchitis Chronic Obstructive Pulmonary Disease reactive sw6 airway disease. 10:33 Medical Screening Exam initiated 11:09 Data reviewed: vital signs, nurses notes, lab test result(s), CBC, EKG, radiologic sw6 studies, plain films. 11:20 ED course: The patient presented for evaluation for shortness of breath getting worse sw6 for the past several days. He reports he had court this morning which is what prompted him to leave early this morning AGAINST MEDICAL ADVICE. He does smoke cigarettes. He uses oxygen at home as needed. Upon arrival to the ER he is hypoxic and in respiratory distress with diffuse wheezing bilaterally and use of accessory muscles. He was placed on supplemental oxygen and provided with albuterol and Atrovent treatments as well as IV Solu-Medrol and IV magnesium. Laboratory studies were ordered as well as a chest x-ray. The plan was for continued treatment with the eventual need for admission later on. After receiving some treatments above the patient decided to leave AGAINST MEDICAL ADVICE, pulled his IV line and left the department.. 11:30 Consideration of Admission/Observation Escalation of care including [facility] admission/observation considered. 10/26 10:14 Order name: BMP 10/26 10:14 Order name: CBC with Diff 10/26 11:07 Interpretation: Abnormal. [facility] 10/26 10:14 Order name: Hepatic Function [facility] 10/26 10:14 Order name: Magnesium 10/26 10:14 Order name: NT PRO-BNP [facility] 10/26 10:14 Order name: Troponin HS [facility] 10/26 10:14 Order name: CXR XRAY; Complete Time: 11:07 10/26 11:08 Interpretation: Abnormal. 10/26 10:14 Order name: Cardiac monitoring; Complete Time: 10:31 10/26 10:14 Order name: EKG - Nurse/Tech; Complete Time: 10:47 10/26 10:14 Order name: IV Saline Lock; Complete Time: 10:48 10/26 10:14 Order name: Labs collected and sent; Complete Time: 10:48 10/26 10:14 Order name: O2 Per Protocol; Complete Time: 10:31 10/26 10:14 Order name: O2 Sat Monitoring; Complete Time: 10:31 10/26 10:14 Order name: Oxygen; Complete Time: 10:31 EC:09 Rate is 113 beats/min. Rhythm is regular. NV interval is prolonged. QRS interval is sw6 normal. QT interval is normal. No Q waves. T waves are Normal. No ST changes noted. Administered Medications: 10:30 Drug: Albuterol Inhalation 7.5 mg Inhalation once Route: Inhalation; iw 10:30 Drug: Ipratropium Inhalation Aerosol 0.5 mg Inhalation once Route: Inhalation; iw 10:50 Drug: MethylPrednisoLONE IVP 125 mg IVP once Route: IVP; Site: right antecubital; iw 11:17 Follow up: Response: No adverse reaction iw 10:50 Drug: Magnesium Sulfate IVPB 2 grams IVPB once over 30 mins Route: IVPB; Infused Over: iw 30 mins; Site: right antecubital; 11:17 Not Given (Patient Eloped): Rocephin - rocephin (ceftriaxone)1 grams IVPB once over 30 iw mins; (mix in 50 mL NS) 11:17 Not Given (Patient Eloped): [id number] mg IVPB once over 1 hrs; mix in 250 mL NS iw Disposition: 11:30 Critical Care:. sw6 Disposition Summary: 10/26/24 11:22 Left Against Medical Advice Notes: Location: Home [facility] Problem: an acute exacerbation 6 Symptoms: are unchanged 6 Condition: Serious sw6 Critical care time excluding procedures: 11:30 Critical care time: Bedside Care: 35 minutes. Total time: 35 minutes 6 Signatures: Dispatcher [employer] Rebeca Hannon RN RN Antonia Lizama MD MD 6
[2024-10-26 11:49] VITALS: BP 117/59; O2SAT 91
[2024-10-26 12:04] LABS: Blood Morphology Comment NOT SEEN (NOT SEEN); Platelet Estimate ADEQ; White Blood Cell Scan OK (OK)
== END 2024-10-26 11:24 | disposition left against medical advice (07) ==
LOC: ER 10:00
DX: R06.02 Shortness of breath (principal); Z53.29 Procedure and treatment not carried out because of patient's decision for other reasons; J44.9 Chronic obstructive pulmonary disease, unspecified; Z99.81 Dependence on supplemental oxygen; I10 Essential (primary) hypertension; M81.0 Age-related osteoporosis without current pathological fracture; F17.210 Nicotine dependence, cigarettes, uncomplicated
CPT/HCPCS: 85025; 80048; 36415; 83735; 80076; 84484; 83880; 71045; J3475 ×2; J7613; J7644; J2919